=== PATIENT | male | born 1940 | race Caucasian/White ===

== ENCOUNTER → 2017-11-24 14:02 | Outpatient (CLI) | payer MEDICARE, OTHER, SELFPAY ==
[2017-11-24 16:06] LABS: ALB/GLOB Ratio 0.9 RATIO (0.9-2.4); AST(SGOT) 21 U/L (15-37); Alanine Aminotransfer ALT/SGPT 24 U/L (16-61); Albumin, Serum 3.7 g/dL (3.2-5.0); Alkaline Phosphatase 56 U/L (45-117); Anion Gap 8 (5-15); BUN 41 mg/dL (7-18); BUN/Creat Ratio 21.8 RATIO (10-20); Calcium,Total 8.6 mg/dL (8.5-10.1); Chloride 103 mmol/L (98-107); Creatinine, Serum 1.88 mg/dL (0.70-1.30); EST Glomerular Filtration Rate 37 mL/min (>60); Est Glom Filt Rate - Afr Amer 45 mL/min (>60); Globulin 4.3 g/dL (2.2-4.2); Glucose 88 mg/dL (74-106); Potassium 3.5 mmol/L (3.5-5.1); Sodium Level 138 mmol/L (136-145); T4 Free Direct 1.27 ng/dL (0.76-1.46); Thyroid Stim Hormone (TSH) 4.21 uIU/mL (0.358-3.74)
[2017-11-24 16:14] LABS: Absolute Lymphocyte Count 1.11 X10^3/ul (0.83-4.51); Absolute Neutrophil Count 7.4 X10^3/uL (2.0-7.7); Basophil# 0.03 X10^3/uL; Basophil% 0.3 % (0-1); Eosinophil# 0.08 X10^3/uL; Eosinophils% 0.9 % (0-5); Hematocrit 35.6 % (40-54); Hemoglobin 12.2 g/dl (13.0-16.5); Lymphocyte # 1.11 X10^3/ul (4.0); Lymphocyte % 11.9 % (19-41); Mean Corp Hgb Conc 34.3 g/gl (32-36); Mean Corpuscular Hgb 34.9 pg (27.0-32.0); Mean Corpuscular Volume 101.7 fL (80-94); Mean Platelet Vol. 10.6 fl (6.2-12.0); Monocyte# 0.71 X10^3/uL; Monocyte% 7.6 % (0-10); Neutrophil # 7.37 X10^3/uL (2.7-7.7); Neutrophil % 79.2 % (47-70); Platelet Count 274 K/mm3 (150-450); RBC Distribution Width CV 14.7 % (11.6-14.6); RBC Distribution Width SD 52.9 fl (35.1-43.9); White Blood Count 9.3 K/mm3 (4.4-11.0)
[2017-11-24 16:19] LABS: POSITIVE COUNT NO; POSITIVE DIFFERENTIAL NO; POSITIVE MORPHOLOGY NO
[2017-11-25 10:41] LABS: Vitamin B12 608 pg/mL (211-911); Vitamin D,25 Hydroxy 54.4 ng/mL (29.95-100.01)
[2017-11-29 15:31] LABS: Anti-Thyroglobulin AB < 1.0 IU/mL (0.0-0.9); Thyroglobulin, Serum Qt. 47.2 ng/mL (1.4-29.2); Thyroid Peroxidase AB 15 IU/mL (0-34)
== END ==
PROVIDERS: Family Provider Family Medicine; PCP Family Medicine; Visit Provider Family Medicine
DX: R53.83 Other fatigue (principal)
CPT/HCPCS: 36415; 80053; 82306; 82607; 84432; 84439; 84443; 85025; 86376; 86800

== ENCOUNTER → 2018-01-12 10:40 | Outpatient (CLI) | payer MEDICARE, OTHER, SELFPAY ==
[2018-01-12 11:22] LABS: International Normalized Ratio 1.6; Prothrombin Time (Protime)PT. 18.6 SECONDS (11.7-14.9)
[2018-01-12 11:43] LABS: AST(SGOT) 19 U/L (15-37); Alanine Aminotransfer ALT/SGPT 19 U/L (16-61); Albumin, Serum 3.7 g/dL (3.2-5.0); Alkaline Phosphatase 54 U/L (45-117); Bilirubin, Direct 0.23 mg/dL (0.00-0.30); Cholesterol 117 mg/dL (200); Globulin 4.2 g/dL (2.2-4.2); High Density Lipoprotein 52 mg/dL; Protein, Total 7.9 g/dL (6.4-8.2); Triglycerides 86 mg/dL; Very Low Density Lipoprotein 17 mg/dL (5-40)
== END ==
PROVIDERS: Family Provider Family Medicine; PCP Family Medicine; Visit Provider Internal Medicine Cardiovascular Disease
DX: E78.00 Pure hypercholesterolemia, unspecified (principal); I25.10 Atherosclerotic heart disease of native coronary artery without angina pectoris; I10 Essential (primary) hypertension
CPT/HCPCS: 36415; 80061; 80076; 85610

== ENCOUNTER → 2018-04-10 14:45 | Outpatient (CLI) | payer MEDICARE, OTHER, SELFPAY ==
[2018-04-10 17:41] LABS: International Normalized Ratio 1.7
== END ==
PROVIDERS: Family Provider Family Medicine; PCP Family Medicine; Visit Provider Family Medicine
DX: I48.91 Unspecified atrial fibrillation (principal)
CPT/HCPCS: 36415; 85610

== ENCOUNTER → 2018-04-18 13:44 | Outpatient (CLI) | payer MEDICARE, OTHER, SELFPAY ==
[2018-04-18 16:12] LABS: International Normalized Ratio 1.7; Prothrombin Time (Protime)PT. 19.8 SECONDS (11.7-14.9)
[2018-05-02 13:54] LABS: International Normalized Ratio 1.8
== END ==
PROVIDERS: Family Provider Family Medicine; PCP Family Medicine; Visit Provider Family Medicine
DX: I48.91 Unspecified atrial fibrillation (principal)
CPT/HCPCS: 36415; 85610

== ENCOUNTER → 2018-05-02 12:06 | Outpatient (CLI) | payer MEDICARE, OTHER, SELFPAY | PROVIDERS: Family Provider Family Medicine; PCP Family Medicine; Visit Provider Family Medicine | DX: I48.91 Unspecified atrial fibrillation (principal) ==

== ENCOUNTER 2018-05-31 11:13 | Observation (INO) | payer MEDICARE, OTHER, SELFPAY ==
[2018-05-31] VITALS (13 sets, daily range): BP systolic 122–154; BP diastolic 62–85; PULSE 54–76; RESP 17–21; TEMP 36.7–37.3; O2SAT 90–98; BMI 26.6; BMI 26.7; BMI 25.7
--- NOTE | 2018-05-31 11:30 | EKG12_ITS ---
Test Reason : CP Blood Pressure : / mmHG Vent. Rate : 066 BPM Atrial Rate : 066 BPM P-R Int : 204 ms QRS Dur : 096 ms QT Int : 430 ms P-R-T Axes : 068 016 004 degrees QTc Int : 450 ms Normal sinus rhythm Normal ECG Confirmed by ADAM ZHENG MD ([id number]), technical writer and editor LENA GALLEGO ([id number]) on 06/05/2018 3:18:57 PM Referred By: MANUELA Confirmed By:ADAM ZHENG MD
--- NOTE | 2018-05-31 11:30 | RAD_ITS ---
STUDY: X-RAY CHEST REASON FOR EXAM: Male, 77 years old. CHEST TIGHTNESS, DIZZY, FELT PALPITATIONS AND THREW UP TECHNIQUE: Single AP portable view of the chest. COMPARISON: None. FINDINGS: Subsegmental atelectases in the right and left lung bases. There is no demonstrated pleural abnormality. Normal size heart. Normal mediastinum and nasrin. Normal visualized pulmonary arteries. There is atherosclerotic calcification of the aortic arch with tortuosity. Normal visualized thoracic spine. There is degenerative osteoarthritis of the bilateral shoulders. There is no demonstrated abnormality of the visualized soft tissue structures of the upper abdomen. RAD/Chest 1 View (Portable) IMPRESSION: Degenerative changes, as described above. No demonstrated acute cardiopulmonary process. Electronically Signed: Angelina Reeves MD at 11:53 EDT Tel , Service support ,
--- NOTE | 2018-05-31 11:31 | CT_ITS ---
STUDY: CT BRAIN WITHOUT CONTRAST REASON FOR EXAM: Male, 77 years old. THAKUR,DIZZY,VOMITING, HX VERTIGO RADIATION DOSAGE (If Supplied By Facility): CTDIvol = ( 44.99 ) mGy, DLP = ( 796.11 ) mGycm TECHNIQUE: Transaxial CT imaging of the brain was performed without administration of intravenous contrast material. Individualized dose optimization techniques were used for this CT. COMPARISON: None. FINDINGS: Normal soft tissue structures. Normal calvarium. There is mild cerebral atrophy with widening of the extra-axial spaces and ventricular dilatation. There are areas of decreased attenuation within the white matter tracts of the supratentorial brain, consistent with microvascular disease changes. Normal basal ganglia and thalami. Normal brainstem. Normal cerebellum. There is no intracranial hemorrhage. There are no findings of an acute ischemic infarction. Normal visualized paranasal sinuses. CT/Brain/Head without Contrast IMPRESSION: Chronic involutional changes of the brain. Electronically Signed: Angelina Reeves MD at 12:09 EDT Tel , Service support ,
[2018-05-31] MEDS: Aspirin 81 MG TAB.CHEW 324 MG PO (11:39)
[2018-05-31] MEDS: 0.9% Normal Saline 1,000 ML 150 ML IV ×3 (11:39→21:56)
[2018-05-31] MEDS: Ondansetron 4 MG/2 ML Vial IV (11:39)
[2018-05-31 11:40] LABS: Absolute Lymphocyte Count 0.92 X10^3/ul (0.83-4.51); Absolute Neutrophil Count 7.7 X10^3/uL (2.0-7.7); Basophil# 0.04 X10^3/uL; Basophil% 0.4 % (0-1); Eosinophil# 0.05 X10^3/uL; Eosinophils% 0.5 % (0-5); Hematocrit 34.6 % (40-54); Hemoglobin 11.9 g/dl (13.0-16.5); Lymphocyte # 0.92 X10^3/ul (4.0); Lymphocyte % 9.6 % (19-41); Mean Corp Hgb Conc 34.4 g/gl (32-36); Mean Corpuscular Hgb 35.5 pg (27.0-32.0); Mean Corpuscular Volume 103.3 fL (80-94); Mean Platelet Vol. 10.3 fl (6.2-12.0); Monocyte# 0.78 X10^3/uL; Monocyte% 8.2 % (0-10); Neutrophil # 7.73 X10^3/uL (2.7-7.7); POSITIVE COUNT NO; POSITIVE DIFFERENTIAL NO; POSITIVE MORPHOLOGY NO; Platelet Count 263 K/mm3 (150-450); RBC Distribution Width CV 14.9 % (11.6-14.6); RBC Distribution Width SD 55.6 fl (35.1-43.9); Red Blood Count 3.35 M/mm3 (4.6-6.2); White Blood Count 9.6 K/mm3 (4.4-11.0)
[2018-05-31 11:43] LABS: International Normalized Ratio 2.3; Prothrombin Time (Protime)PT. 25.5 SECONDS (11.7-14.9)
[2018-05-31 11:53] LABS: Anion Gap 8 (5-15); BUN 25 mg/dL (7-18); BUN/Creat Ratio 16.4 RATIO (10-20); Calcium,Total 9.1 mg/dL (8.5-10.1); Chloride 104 mmol/L (98-107); Creatinine, Serum 1.52 mg/dL (0.70-1.30); EST Glomerular Filtration Rate 48 mL/min (>60); Est Glom Filt Rate - Afr Amer 58 mL/min (>60); Estimated Creatinine Clearance 38.65 ml/min; Glucose 100 mg/dL (74-106); Potassium 2.8 mmol/L (3.5-5.1); Sodium Level 141 mmol/L (136-145)
--- NOTE | 2018-05-31 12:34 | ED.VISSUMM ---
- ER Visit Summary Date of Service: 05/31/18 Chief Complaint: [Chest pain and palpitations.] History of Present Illness: The patient is a 77 M [presents to the emergency department with complaint of not feeling well since yesterday. This morning the patient had some chest tightness and took a nitro which seemed to resolve it. Patient has been complaining of a lot of fatigue especially with activity and exertion. Patient today has been feeling very lightheaded and feels off balance when walking. Patient also has a headache that started yesterday. Patient does have a history of paroxysmal atrial fibrillation, hypertension, high cholesterol. Patient does have a history of cardiac stent that was placed in 1998.] Physical Examination: [HEENT-PERRLA, EOMI. Cranial nerves II through XII grossly intact. TMs clear. Mucous membranes moist. No adenopathy. Cardiovascular-regular rate and 2 out of 6 systolic ejection murmur noted. Lungs-clear to auscultation, chest wall stable without crepitus or subcu emphysema Abdomen-normoactive bowel sounds, soft, nontender, no rebound or rigidity, no peritoneal signs. Neuro xoba-yuuvgl-empd and heel purdy testing within normal limits, negative Romberg, negative pronator drift, fundi benign. Hallpike maneuver performed was negative for nystagmus. Extremities-intact ?4, normal range of motion, normal pulses, atraumatic] Test Results: [EKG obtained on arrival shows sinus rhythm with a ventricular rate of 66 bpm with no acute ST segment changes. CBC with differential showed a white count of 9.6, hemoglobin 11.9, hematocrit 35, platelet 263. Chemistries show sodium 141, potassium 2.8, chloride 104, CO2 29, BUN 25, creatinine 1.52. INR was 2.3 and troponin was less than 0.015. Chest x-ray showed nothing acute. CT scan of the brain without contrast showed chronic involutional changes otherwise nothing acute.] Emergency Department Course and Treatment: [Patient was pain-free on arrival to the emergency department. He had an IV established with normal saline.] She was given 40 mCi once of potassium chloride p.o. Treatment Plan: [Admit for further workup and evaluation] Disposition: [Admit] Impression: [Chest pain Palpitations Hypokalemia Dizziness-etiology uncertain] This note was generated with [employer] software. It may contain incorrect words, spelling, and punctuation that were not noted in review of the chart prior to signing ED Disposition - Plan for ED Patient: Chief Complaint: Palpitations Referrals: César Chinchilla MD [Primary Care Provider] -
--- NOTE | 2018-05-31 12:40 | ED.DCSUM_ITS ---
- ER Visit Summary Date of Service: 05/31/18 Chief Complaint: [Chest pain and palpitations.] History of Present Illness: The patient is a 77 M [presents to the emergency department with complaint of not feeling well since yesterday. This morning the patient had some chest tightness and took a nitro which seemed to resolve it. Patient has been complaining of a lot of fatigue especially with activity and exertion. Patient today has been feeling very lightheaded and feels off balance when walking. Patient also has a headache that started yesterday. Patient does have a history of paroxysmal atrial fibrillation, hypertension, high cholesterol. Patient does have a history of cardiac stent that was placed in 1998.] Physical Examination: [HEENT-PERRLA, EOMI. Cranial nerves II through XII grossly intact. TMs clear. Mucous membranes moist. No adenopathy. Cardiovascular-regular rate and 2 out of 6 systolic ejection murmur noted. Lungs-clear to auscultation, chest wall stable without crepitus or subcu emphysema Abdomen-normoactive bowel sounds, soft, nontender, no rebound or rigidity, no peritoneal signs. Neuro rwvl-ewdddp-ymbl and heel purdy testing within normal limits, negative Romberg, negative pronator drift, fundi benign. Hallpike maneuver performed was negative for nystagmus. Extremities-intact ?4, normal range of motion, normal pulses, atraumatic] Test Results: [EKG obtained on arrival shows sinus rhythm with a ventricular rate of 66 bpm with no acute ST segment changes. CBC with differential showed a white count of 9.6, hemoglobin 11.9, hematocrit 35, platelet 263. Chemistries show sodium 141, potassium 2.8, chloride 104, CO2 29, BUN 25, creatinine 1.52. INR was 2.3 and troponin was less than 0.015. Chest x-ray showed nothing acute. CT scan of the brain without contrast showed chronic involutional changes otherwise nothing acute.] Emergency Department Course and Treatment: [Patient was pain-free on arrival to the emergency department. He had an IV established with normal saline.] She was given 40 mCi once of potassium chloride p.o. Treatment Plan: [Admit for further workup and evaluation] Disposition: [Admit] Impression: [Chest pain Palpitations Hypokalemia Dizziness-etiology uncertain] This note was generated with [employer] software. It may contain incorrect words, spelling, and punctuation that were not noted in review of the chart prior to signing ED Disposition - Plan for ED Patient: Chief Complaint: Palpitations Referrals: César Chinchilla MD [Primary Care Provider] -
--- NOTE | 2018-05-31 14:06 | PCM.HP.STD ---
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 transplanted heart: [place] heart Qualified Code(s): I25.10 - Atherosclerotic heart disease of [place] coronary artery without angina pectoris (8) HLD (hyperlipidemia) Status: Chronic Qualifiers: Hyperlipidemia type: pure hypercholesterolemia Qualified Code(s): E78.00 - Pure hypercholesterolemia, unspecified; E78.0 - Pure hypercholesterolemia (9) CAD (coronary artery disease) Status: Chronic (10) Generalized weakness Status: Chronic (11) C. difficile colitis Status: Resolved (12) Chest tightness Status: Acute History of Present Illness Date of Admission: 05/31/18 Chief Complaint: Near syncope, chest tightness/palpitation The patient is a 77 year old M with PAFIB s/p cardioverted on coumadin came to ED WITH near syncope and dizziness and chest tightness. Pt has chronic on and off palpitation but this time he felt chest tightness without precipitating or relieving or radiation. No SOB or N/V. He has dizziness since yesterday but no syncope or fall. He was admitted here in 02/2017 for similiar chest tightness and palitation and stress test was negative. H/o CAD S/P stents, last LA in 1998. In ED, chest tightness relieved with nitro S/L. EKG NSR @ 66 b/m with no ST-T Changes. On monitor and storage bin tender, sinus rhythm with PVCs and missed heart beat. K 2.8. INR 2.3 [] Past Medical History Past Medical History (Chronic Problems): Chronic Problems (Last Reviewed 01/12/18 @ 10:23 by Tremaine Molina MD) HTN (hypertension) (Chronic) History of coronary artery stent placement (Chronic) PTCA and stenting of the proximal LAD 08/04/2000 Paroxysmal atrial fibrillation (Chronic) Old myocardial infarction (Chronic) Atherosclerotic heart disease of [place] coronary artery without angina pectoris (Chronic) HLD (hyperlipidemia) (Chronic) CAD (coronary artery disease) (Chronic) Generalized weakness (Chronic) Medical History: Medical History (Last Reviewed 01/12/18 @ 10:23 by Tremaine Molina MD) Hypokalemia (Resolved) E87.6 HTN (hypertension) (Chronic) I10 Paroxysmal atrial fibrillation (Chronic) I48.0 Old myocardial infarction (Chronic) I25.2 Atherosclerotic heart disease of [place] coronary artery without angina pectoris (Chronic) I25.10 HLD (hyperlipidemia) (Chronic) E78.5 CAD (coronary artery disease) (Chronic) I25.10 Back pain M54.9 Hay fever J30.1 Knee pain M25.569 Neck pain M54.2 Arthritis M19.90 Atrial fibrillation with RVR I48.91 BPH (benign prostatic hyperplasia) N40.0 Heart disease I51.9 History of hyperthyroidism Z86.39 Allergies prednisone Allergy (Verified 01/12/18 10:07) Rash diclofenac Adverse Reaction (Verified 01/12/18 10:07) rash Home Medications: Ambulatory Orders Medication Instructions Recorded fluticasone 50 mcg/actuation nasal 1 spray INTRANASAL QDAY #9.9 g 09/11/17 spray,suspension aspirin 81 mg tablet,delayed 81 mg PO QDAY 01/09/18 release cholecalciferol (vitamin D3) 2,000 2,000 unit PO QDAY 01/09/18 unit tablet hydrocodone 5 mg-acetaminophen 325 1 tab PO Q6H PRN 01/09/18 mg tablet tramadol 50 mg tablet 50 mg PO TID PRN tab 01/09/18 calcium carbonate-vitamin D3 600 1 cap PO QDAY cap 01/12/18 mg (1,500 mg)-500 unit capsule coenzyme Q10 100 mg capsule 100 mg PO QDAY 01/12/18 levocetirizine 5 mg tablet 5 mg PO QHS 01/12/18 pravastatin 40 mg tablet 40 mg PO DAILY #90 tab 01/12/18 warfarin 4 mg tablet 4 mg PO SUTUWETHSA #60 tab 01/12/18 nitroglycerin 0.4 mg sublingual 0.4 mg SUBLINGUAL Q5-15M PRN #25 03/03/18 tablet tab Denosumab [Prolia] 60 mg SQ Q6M 05/31/18 Glucosam/Mahesh-Msm1/C/Torey/Bosw 1 each PO DAILY 05/31/18 [Osteo Bi-Flex Caplet] Lidocaine 5% 1 patch TOPICAL DAILY 05/31/18 Magnesium Oxide [Mag-Ox 400] 1 tab PO QHS 05/31/18 Potassium Bicarbonate/Cit AC 50 meq PO BID 05/31/18 Tizanidine HCl [Zanaflex] 2 - 4 mg PO QHS PRN 05/31/18 Diltiazem HCl [Cardizem Cd] 120 mg PO QDAY #0 06/01/18 Hydrochlorothiazide [Hctz] 12.5 mg PO QDAY #0 tab 06/01/18 Metoprolol Tartrate 50 mg PO BID #0 06/01/18 Tamsulosin HCl [Flomax] 0.4 mg PO DAILY #0 cap 06/01/18 Warfarin [Coumadin] 5 mg PO MOFR #60 tab 06/01/18 Surgical History: Surgical History (Last Reviewed 01/12/18 @ 10:23 by Tremaine Molina MD) History of coronary artery stent placement (Chronic) Z95.5 PTCA and stenting of the proximal LAD 08/04/2000 History of Zenaida fundoplication Z98.890 History of back surgery Z98.890 History of hernia repair Z98.890, Z87.19 Surgical History: angioplasty, - - cardiversion, 3 hernia operations, back surgey 3 times hemorrhoid surgery. Smoking Status: Never smoker - *Family History Paternal Family History: Family History (Last Reviewed 01/12/18 @ 10:23 by Tremaine Molina MD) Father Cancer Mother Hypertension Sister Hypertension History Items: - - prostate cancer Maternal Family History: Family History (Last Reviewed 01/12/18 @ 10:23 by Tremaine Molina MD) Father Cancer Mother Hypertension Sister Hypertension History Items: Heart Disease, - - Study of cardiac disease in his maternal side Review of Systems Constitutional: Denies: Chills, Fever, Weight Change HEENT: Reports: Head Aches, Sinus Congestion. Denies: Sinus Drainage Cardiovascular: Reports: Chest Tightness, Light Headedness, Palpitations. Denies: Chest Pain Respiratory: Denies: Cough, Shortness of breath at rest, Sputum production Gastrointestinal: Denies: Abdominal Pain, Nausea, Vomiting Genitourinary: Denies: Dysuria, Frequency, Hematuria Musculoskeletal: Reports: Joint Pain. Denies: Joint Tenderness Skin: Denies: Rash, Wounds Neurological: Denies: Numbness, Tingling, Focal weakness Psychiatric: Denies: Anxiety, Depression, Homicidal Ideations, Suicidal Ideations Hematologic/ Lymphatic: Denies: Easy Bruising, Easy Bleeding VTE Information - Inpt Only VTE Present on Admission: No VTE Mechan Device Prophylaxis: None VTE Pharm Prophylaxis ordered?: No Reason prophylaxis not ordered:: Procedure Not Indicated - On Coumadin Patient Problems: Active and Suspected Problems (Last Reviewed 01/12/18 @ 10:23 by Tremaine Molina MD) Near syncope (Acute) - Physical Exam General: Alert, Oriented x3, Cooperative HEENT: Atraumatic, PERRLA, EOMI, Normocephalic Oral: Dry Mucosa Neck: Supple, No JVD, Negative Carotid Bruits Lungs: Clear to auscultation, Normal air movement, No rhonchi, No wheeze Cardiovascular: Normal S1, Normal S2, No murmurs, Irregular Rate - SINUS rhythm with PVCs and missed HB Abdomen: Bowel Sounds Present, Soft, Non Tender, Non-Distended Extremities: No edema, Capillary Refill Less than 3 Seconds Skin: No rashes, No breakdown Musculoskeletal: No Tenderness to Palpation of Joints or Extremities, Arthritic Changes - LEFT 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 Neurological: Cranial nerves II-XII grossly intact Psych/Mental Status: Normal Affect, Appropriate Vital Signs Temp Pulse Resp BP Pulse Ox 98.1 F 64 17 122/71 H 93 05/31/18 13:24 05/31/18 13:24 05/31/18 13:24 05/31/18 13:24 05/31/18 13:24 Oxygen Delivery Method Room Air Weight: 164 lb 3.91 oz Body Mass Index (BMI) 25.7 Laboratory Tests Past 24 Hrs 05/31/18 05/31/18 05/31/18 11:20 11:20 11:20 WBC 9.6 RBC 3.35 L Hgb 11.9 L Hct 34.6 L MCV 103.3 H MCH 35.5 H MCHC 34.4 RDW 14.9 H RDW Differential 55.6 H Plt Count 263 MPV 10.3 Immature Gran % (Auto) 0.300 Neut % (Auto) 81.0 H Lymph % (Auto) 9.6 L Metcalfe % (Auto) 8.2 Eos % (Auto) 0.5 Baso % (Auto) 0.4 Absolute Neuts (auto) 7.7 Absolute Lymphs (auto) 0.92 Total Counted Not Reportable PT 25.5 H INR 2.3 Sodium 141 Potassium 2.8 L Chloride 104 Carbon Dioxide 29.0 Anion Gap 8 BUN 25 H Creatinine 1.52 H Estim Creat Clear Calc 38.65 Est GFR (MDRD) Af Amer 58 L Est GFR (MDRD) Non-Af 48 L BUN/Creatinine Ratio 16.4 Glucose 100 Calcium 9.1 Troponin I < 0.015 Assessment/Plan All Active Problems (Last Reviewed 01/12/18 @ 10:23 by Tremaine Molina MD) Near syncope (Acute) Hypokalemia (Resolved) C. difficile colitis (Resolved) Chest tightness (Acute) The patient is a 77 year old M with PAFIB s/p cardioverted on coumadin came to ED WITH near syncope and dizziness and chest tightness. Pt has chronic on and off palpitation but this time he felt chest tightness without precipitating or relieving or radiation. No SOB or N/V. He has dizziness since yesterday but no syncope or fall. He was admitted here in 02/2017 for similiar chest tightness and palitation and stress test was negative. H/o CAD S/P stents, last LA in 1998. In ED, chest tightness relieved with nitro S/L. EKG NSR @ 66 b/m with no ST-T Changes. On monitor and storage bin tender, sinus rhythm with PVCs and missed heart beat. K 2.8. INR 2.3. 1. Chest tightness/palpitation, atypical R/O ACS: Patient is being admitted to PCU. Serial cardiac enzymes. Heart rate is controlled. If troponins are negative, Lexiscan nuclear stress test tomorrow a.m. 2. Near syncope and vertigo or probably related to polypharmacy, : No nystagamus on exam. Kameron Hallpike manoeuvre negative. Patient is on tramadol, [place], tizanidine and Flomax twice daily that might be in part responsible for dizziness/lightheadedness. Medications were held. 3. Paroxysmal A. fib on Coumadin: INR therapeutic. Continue home dose of Coumadin. 4. Coronary artery disease status post stents, hypertension and dyslipidemia: Home medications continued. Blood pressure is stable and no hypotension. Patient had nuclear stress test in February 2017 and was negative. 5. BPH on Flomax. Home medication reconciliation done. DVT prophylaxis: On Coumadin. Laboratory Results 05/31/18 11:20: WBC 9.6, RBC 3.35 L, Hgb 11.9 L, Hct 34.6 L, MCV 103.3 H, MCH 35.5 H, MCHC 34.4, RDW 14.9 H, RDW Differential 55.6 H, Plt Count 263, MPV 10.3, Immature Gran % (Auto) 0.300, Neut % (Auto) 81.0 H, Lymph % (Auto) 9.6 L, Metcalfe % (Auto) 8.2, Eos % (Auto) 0.5, Baso % (Auto) 0.4, Absolute Neuts (auto) 7.7, Absolute Lymphs (auto) 0.92, Total Counted Not Reportable 05/31/18 11:20: PT 25.5 H, INR 2.3 05/31/18 11:20: Sodium 141, Potassium 2.8 L, Chloride 104, Carbon Dioxide 29.0, Anion Gap 8, BUN 25 H, Creatinine 1.52 H, Estim Creat Clear Calc 38.65, Est GFR (MDRD) Af Amer 58 L, Est GFR (MDRD) Non-Af 48 L, BUN/Creatinine Ratio 16.4, Glucose 100, Calcium 9.1, Troponin I < 0.015 05/31/18 14:33: Troponin I 0.019 Clinical Impression(s) from Imaging Studies Chest X-Ray 05/31/18 11:30 IMPRESSION: Degenerative changes, as described above. No demonstrated acute cardiopulmonary process. Brain CT 05/31/18 11:31 IMPRESSION: Chronic involutional changes of the brain. Code Visit Inpatient E&M: 99865 Init Hosp L3 OBSV E&M: 45785 Initial observation care L3
--- NOTE | 2018-05-31 14:07 | EKG12_ITS ---
Test Reason : CP ADMISION Blood Pressure : / mmHG Vent. Rate : 058 BPM Atrial Rate : 058 BPM P-R Int : 204 ms QRS Dur : 100 ms QT Int : 450 ms P-R-T Axes : 068 -02 -11 degrees QTc Int : 441 ms Sinus bradycardia with marked sinus arrhythmia Otherwise normal ECG When compared with ECG of 24-MAR-2017 07:07, Previous ECG has undetermined rhythm, needs review QT has shortened Confirmed by MARCE KASPER, ADAM ([id number]), restaurant expeditor LENA GALLEGO ([id number]) on 06/05/2018 3:58:50 PM Referred By: MANJIT Confirmed By:ADAM ZHENG MD
[2018-05-31] MEDS: HYDROcodone Bitartrate/Apap 5/325 Tablet PO (16:13)
[2018-05-31] MEDS: Aspirin E.C. 81 MG Tablet PO (16:14)
[2018-05-31] MEDS: Tamsulosin HCl 0.4 MG Capsule PO (16:14)
[2018-05-31] MEDS: dilTIAZem CD 120 MG Capsule PO (16:15)
[2018-05-31] MEDS: Fluticasone 0.05% 1 SPRAY NASAL.SRY NASAL (21:55)
[2018-05-31] MEDS: Metoprolol Tartrate 50 MG Tablet PO (21:56)
[2018-05-31] MEDS: Magnesium Oxide 400 MG Tablet PO (21:56)
[2018-05-31] MEDS: Pravastatin 40 MG Tablet PO (21:56)
[2018-06-01] MEDS: Acetaminophen 325 MG Tablet 650 MG PO ×2 (00:45→08:14)
[2018-06-01 02:57] VITALS: BP 129/72; PULSE 65; RESP 18; TEMP 37.1; O2SAT 95
[2018-06-01 03:00] VITALS: PULSE 65
[2018-06-01 03:59] LABS: Absolute Lymphocyte Count 0.83 X10^3/ul (0.83-4.51); Absolute Neutrophil Count 8.1 X10^3/uL (2.0-7.7); Basophil# 0.02 X10^3/uL; Basophil% 0.2 % (0-1); Eosinophil# 0.06 X10^3/uL; Eosinophils% 0.6 % (0-5); Hematocrit 29.6 % (40-54); Hemoglobin 10.3 g/dl (13.0-16.5); Lymphocyte # 0.83 X10^3/ul (4.0); Lymphocyte % 8.2 % (19-41); Mean Corp Hgb Conc 34.8 g/gl (32-36); Mean Corpuscular Hgb 36.4 pg (27.0-32.0); Mean Corpuscular Volume 104.6 fL (80-94); Mean Platelet Vol. 9.8 fl (6.2-12.0); Monocyte# 1.13 X10^3/uL; Monocyte% 11.2 % (0-10); Neutrophil # 8.05 X10^3/uL (2.7-7.7); Neutrophil % 79.7 % (47-70); Platelet Count 224 K/mm3 (150-450); RBC Distribution Width CV 14.9 % (11.6-14.6); RBC Distribution Width SD 56.1 fl (35.1-43.9); Red Blood Count 2.83 M/mm3 (4.6-6.2); White Blood Count 10.1 K/mm3 (4.4-11.0)
--- NOTE | 2018-06-01 04:00 | EKG12_ITS ---
Test Reason : AM EKG Blood Pressure : / mmHG Vent. Rate : 072 BPM Atrial Rate : 072 BPM P-R Int : 212 ms QRS Dur : 100 ms QT Int : 416 ms P-R-T Axes : 074 009 008 degrees QTc Int : 455 ms Sinus rhythm with 1st degree A-V block Otherwise normal ECG When compared with ECG of 31-MAY-2018 14:28, MANUAL COMPARISON REQUIRED, DATA IS UNCONFIRMED Confirmed by MARCE KASPER, ADAM ([id number]), film editor supervisor LENA GALLEGO ([id number]) on 06/05/2018 3:57:46 PM Referred By: MANJIT Confirmed By:ADAM ZHENG MD
[2018-06-01 04:14] LABS: Prothrombin Time (Protime)PT. 31.6 SECONDS (11.7-14.9)
[2018-06-01 04:15] LABS: Partial Thromboplast Time 60.4 Seconds (24.1-36.2)
[2018-06-01 04:45] LABS: POSITIVE COUNT NO; POSITIVE DIFFERENTIAL NO; POSITIVE MORPHOLOGY NO
[2018-06-01] MEDS: 0.9% Normal Saline 1,000 ML 150 ML IV (05:04)
[2018-06-01] MEDS: Aspirin E.C. 81 MG Tablet PO (05:05)
[2018-06-01 05:14] LABS: Anion Gap 8 (5-15); BUN 25 mg/dL (7-18); BUN/Creat Ratio 20.3 RATIO (10-20); Calcium,Total 7.7 mg/dL (8.5-10.1); Chloride 111 mmol/L (98-107); Cholesterol 82 mg/dL (200); Creatinine, Serum 1.23 mg/dL (0.70-1.30); EST Glomerular Filtration Rate 61 mL/min (>60); Est Glom Filt Rate - Afr Amer 73 mL/min (>60); Estimated Creatinine Clearance 47.77 ml/min; Glucose 87 mg/dL (74-106); High Density Lipoprotein 38 mg/dL; Potassium 3.5 mmol/L (3.5-5.1); Sodium Level 145 mmol/L (136-145); Triglycerides 76 mg/dL; Very Low Density Lipoprotein 15 mg/dL (5-40)
[2018-06-01 06:57] VITALS: PULSE 68
[2018-06-01] MEDS: Ondansetron 4 MG/2 ML Vial IV (08:13)
[2018-06-01 08:57] VITALS: BP 143/67; PULSE 79; RESP 16; TEMP 36.7; O2SAT 93
[2018-06-01] MEDS: traMADol 50 MG Tablet PO (10:59)
[2018-06-01] MEDS: Tamsulosin HCl 0.4 MG Capsule PO (10:59)
[2018-06-01] MEDS: dilTIAZem CD 120 MG Capsule PO (10:59)
[2018-06-01 11:00] VITALS: PULSE 84
[2018-06-01] MEDS: Fluticasone 0.05% 1 SPRAY NASAL.SRY NASAL (11:00)
[2018-06-01] MEDS: Metoprolol Tartrate 50 MG Tablet PO (11:00)
[2018-06-01] MEDS: Lidocaine 5% Patch 1 PATCH TOPICAL (11:00)
[2018-06-01] MEDS: 0.9% NaCl Peripheral Flush Adult/Peds IV (11:05)
[2018-06-01 11:07] VITALS: PULSE 91
--- NOTE | 2018-06-01 11:28 | DCINST_ITS ---
- Discharge Diagnoses Current Active Problems: Current Active and Chronic Problems (Last Reviewed 01/12/18 @ 10:23 by Tremaine Molina MD) Near syncope (Acute) You will use the following diet at home:: Cardiac Discharge Activity: May not drive while taking narcotic pain medications. Call your doctor if you observe: Fever of 101 or Higher, Change in Color, Chest pain Allergies/Adverse Reactions: Allergies prednisone Allergy (Verified 01/12/18 10:07) Rash diclofenac Adverse Reaction (Verified 01/12/18 10:07) rash Medications to take at Discharge fluticasone 50 mcg/actuation nasal spray,suspension 1 spray INTRANASAL QDAY #9.9 g 09/11/17 aspirin 81 mg tablet,delayed release 81 mg PO QDAY 01/09/18 cholecalciferol (vitamin D3) 2,000 unit tablet 2,000 unit PO QDAY 01/09/18 hydrocodone 5 mg-acetaminophen 325 mg tablet 1 tab PO Q6H PRN 01/09/18 tramadol 50 mg tablet 50 mg PO TID PRN tab 01/09/18 calcium carbonate-vitamin D3 600 mg (1,500 mg)-500 unit capsule 1 cap PO QDAY cap 01/12/18 coenzyme Q10 100 mg capsule 100 mg PO QDAY 01/12/18 levocetirizine 5 mg tablet 5 mg PO QHS 01/12/18 pravastatin 40 mg tablet 40 mg PO DAILY #90 tab 01/12/18 warfarin 4 mg tablet 4 mg PO SUTUWETHSA #60 tab 01/12/18 nitroglycerin 0.4 mg sublingual tablet 0.4 mg SUBLINGUAL Q5-15M PRN #25 tab 03/03/18 Denosumab [Prolia] 60 mg SQ Q6M 05/31/18 Glucosam/Mahesh-Msm1/C/Torey/Bosw [Osteo Bi-Flex Caplet] 1 each PO DAILY 05/31/18 Lidocaine 5% 1 patch TOPICAL DAILY 05/31/18 Magnesium Oxide [Mag-Ox 400] 1 tab PO QHS 05/31/18 Potassium Bicarbonate/Cit AC 50 meq PO BID 05/31/18 Tizanidine HCl [Zanaflex] 2 - 4 mg PO QHS PRN 05/31/18 Diltiazem HCl [Cardizem Cd] 120 mg PO QDAY #0 06/01/18 Hydrochlorothiazide [Hctz] 12.5 mg PO QDAY #0 tab 06/01/18 Metoprolol Tartrate 50 mg PO BID #0 06/01/18 Tamsulosin HCl [Flomax] 0.4 mg PO DAILY #0 cap 06/01/18 Warfarin [Coumadin] 5 mg PO MOFR #60 tab 06/01/18 Orders to be completed after discharge: Prothrombin Time w/INR Time Frame: 06/02/18, Location: Laboratory Primary Care Physician: César Chinchilla MD [Primary Care Provider] - Please follow up with your Primary Care Physician in: IN 1-2 WEEKS Test Results: Test results from this visit will be discussed in further detail at your follow- up appointment, if applicable. Please Follow Up With: Primo Rosado MD When: ENT in 2-3 weeks for DIZZINESS, Vertigo
--- NOTE | 2018-06-01 12:11 | PHA.DC.MR ---
Pharmacy Service has performed discharge medication reconciliation for this patient upon discharge. No new medications were given upon discharge, reviewed medications were from previous home medication list. The patient's discharge medication list was reviewed for discrepancies and discrepancies were resolved.
--- NOTE | 2018-06-01 12:42 | STRESSREP_ITS ---
Stress Test Report Date: 06/01/2018 Procedure: Pharmacologic stress nuclear imaging study Indications: Chest pain; CAD; PCI Consent: Per the patient Procedure: The patient underwent pharmacologic (Regadenoson) evaluation with a peak heart rate of 97 beats per minute (67 predicted maximal heart rate) and a peak blood pressure of 142/80 mmHg. The baseline ECG demonstrated normal sinus rhythm. The peak pharmacologic ECG demonstrated no obvious ECG changes. There was a rare PVC during infusion and recovery. There was no complaint of chest discomfort during pharmacologic infusion or recovery. The examination was discontinued secondary to completion of protocol. Impression: 1. Pharmacologic (Regadenoson) evaluation 2. Peak pharmacologic ECG with no obvious ECG changes. 3. There were no cardiac dysrhythmias pretest, during pharmacologic infusion, or recovery. 4. Nuclear images pending Myocardial perfusion imaging study: Technique: The patient was injected with 11.7 millicuries of technetium 99m Cardiolite and subsequently rest SPECT Cardiolite nuclear imaging was obtained in the horizontal long, vertical long, and short axis views. The patient underwent pharmacologic (Regadenoson) evaluation with a peak heart rate of 97 beats per minute (67 % percent predicted maximal heart rate) and a peak blood pressure of 142/80 mmHg. The patient was injected with 33.4 millicuries of technetium 99m Cardiolite and subsequently stress SPECT Cardiolite nuclear imaging was obtained in the horizontal long, vertical long, and short axis views. A gated Cardiolite study at peak stress was obtained. Interpretation: Rest and stress SPECT Cardiolite nuclear imaging status post realignment, normalization, and attenuation correction demonstrate no active uniform tracer uptake and myocardial perfusion appearing within normal limits. There is end systolic thickening and brightening. The gated Cardiolite study demonstrates myocardial thickening and inward wall motion. The reported LVEF is 60 %. Impression: 1. Rest and stress SPECT Cardiolite nuclear imaging demonstrate relative uniform tracer uptake and myocardial perfusion appearing within normal limits. 2. The gated Cardiolite study reports an LVEF of 60 %. This note was generated with [employer] software. It may contain incorrect words, spelling, and punctuation that were not noted in checking the note before signing.
--- NOTE | 2018-06-01 13:07 | PCM.DC.SUM ---
Discharge Date and Diagnosis - Problem List Patient Problems: Active and Suspected Problems (Last Reviewed 01/12/18 @ 10:23 by Tremaine Molina MD) Near syncope (Acute) Date of Admission: 05/31/18 Date of Discharge: 06/01/18 - Primary Discharge Diagnosis Active and Suspected Problems (Last Reviewed 01/12/18 @ 10:23 by Tremaine Molina MD) Near syncope (Acute) Chest tightness/palpitation, acute coronary syndrome ruled out: Lexiscan nuclear stress test was negative for stress-induced ischemia. 2. Near syncope and vertigo or probably related to polypharmacy, resolved. - Secondary Discharge Diagnosis Chronic Problems (Last Reviewed 01/12/18 @ 10:23 by Tremaine Molina MD) HTN (hypertension) (Chronic) History of coronary artery stent placement (Chronic) PTCA and stenting of the proximal LAD 08/04/2000 Paroxysmal atrial fibrillation (Chronic) Old myocardial infarction (Chronic) Atherosclerotic heart disease of [place] coronary artery without angina pectoris (Chronic) HLD (hyperlipidemia) (Chronic) CAD (coronary artery disease) (Chronic) Generalized weakness (Chronic) Hospital Course and Treatment Imaging Results: 06/01/18 05:55 Nuclear Stress Test - Chemical [NM] AM (NON MEDS) Operations: None Summary of Care Provided: [] The patient is a 77 year old M with PAFIB s/p cardioverted on coumadin came to ED WITH near syncope and dizziness and chest tightness. Pt has chronic on and off palpitation but this time he felt chest tightness without precipitating or relieving or radiation. No SOB or N/V. He has dizziness since yesterday but no syncope or fall. He was admitted here in 02/2017 for similiar chest tightness and palitation and stress test was negative. H/o CAD S/P stents, last [place] in 1998. In ED, chest tightness relieved with nitro S/L. EKG NSR @ 66 b/m with no ST-T Changes. On cardiac exercise physiologist, sinus rhythm with PVCs and missed heart beat. K 2.8. INR 2.3. Patient was seen and examined today. General: Alert, Oriented x3, Cooperative HEENT: Atraumatic, PERRLA, EOMI, Normocephalic Oral: Dry Mucosa Neck: Supple, No JVD, Negative Carotid Bruits Lungs: Clear to auscultation, Normal air movement, No rhonchi, No wheeze Cardiovascular: Normal S1, Normal S2, No murmurs, sinus rhythm with sinus arrhythmia on monitor. 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 Chest tightness/palpitation, acute coronary syndrome ruled out: On cardiac exercise physiologist, patient did not had tachycardia and was sinus rhythm with sinus arrhythmia. Serial troponin enzymes are negative. Lexiscan nuclear stress test was negative for stress-induced ischemia. 2. Near syncope and vertigo or probably related to polypharmacy, resolved. No nystagamus on exam. Kameron Hallpike manoeuvre negative patient was advised to follow with PCP in 1-2 weeks to adjust her medications particularly tizanidine, tramadol and [place]. Patient was advised to take it only if necessary. Patient is advised to space out antihypertensive medications HCTZ, and Cardizem CD. 3. Paroxysmal A. fib on Coumadin: Heart rate controlled on metoprolol and Cardizem CD. INR supratherapeutic, 3.0 today. Coumadin was held. Tomorrow and titrate the dose of Coumadin accordingly; perhaps starting 4 mg from tomorrow. 4. Coronary artery disease status post stents, hypertension and dyslipidemia: Home medications continued. Blood pressure is stable and no hypotension 5. BPH on Flomax. Discharge medication reconciliation done. Follow-up instructions given. DVT prophylaxis: On Coumadin. Discharge Activity: May not drive while taking narcotic pain medications. Call your doctor if you observe: Fever of 101 or Higher, Change in Color, Chest pain Home Medications: Medications to take at Discharge fluticasone 50 mcg/actuation nasal spray,suspension 1 spray INTRANASAL QDAY #9.9 g 09/11/17 aspirin 81 mg tablet,delayed release 81 mg PO QDAY 01/09/18 cholecalciferol (vitamin D3) 2,000 unit tablet 2,000 unit PO QDAY 01/09/18 hydrocodone 5 mg-acetaminophen 325 mg tablet 1 tab PO Q6H PRN 01/09/18 tramadol 50 mg tablet 50 mg PO TID PRN tab 01/09/18 calcium carbonate-vitamin D3 600 mg (1,500 mg)-500 unit capsule 1 cap PO QDAY cap 01/12/18 coenzyme Q10 100 mg capsule 100 mg PO QDAY 01/12/18 levocetirizine 5 mg tablet 5 mg PO QHS 01/12/18 pravastatin 40 mg tablet 40 mg PO DAILY #90 tab 01/12/18 warfarin 4 mg tablet 4 mg PO SUTUWETHSA #60 tab 01/12/18 nitroglycerin 0.4 mg sublingual tablet 0.4 mg SUBLINGUAL Q5-15M PRN #25 tab 03/03/18 Denosumab [Prolia] 60 mg SQ Q6M 05/31/18 Glucosam/Mahesh-Msm1/C/Torey/Bosw [Osteo Bi-Flex Caplet] 1 each PO DAILY 05/31/18 Lidocaine 5% 1 patch TOPICAL DAILY 05/31/18 Magnesium Oxide [Mag-Ox 400] 1 tab PO QHS 05/31/18 Potassium Bicarbonate/Cit AC 50 meq PO BID 05/31/18 Tizanidine HCl [Zanaflex] 2 - 4 mg PO QHS PRN 05/31/18 Diltiazem HCl [Cardizem Cd] 120 mg PO QDAY #0 06/01/18 Hydrochlorothiazide [Hctz] 12.5 mg PO QDAY #0 tab 06/01/18 Metoprolol Tartrate 50 mg PO BID #0 06/01/18 Tamsulosin HCl [Flomax] 0.4 mg PO DAILY #0 cap 06/01/18 Warfarin [Coumadin] 5 mg PO MOFR #60 tab 06/01/18 Other Amb Orders: Prothrombin Time w/INR Time Frame: 06/02/18, Location: Laboratory Primary Care Physician: César Chinchilla MD [Primary Care Provider] - Please follow up with your Primary Care Physician in: IN 1-2 WEEKS Please Follow Up With: Primo Rosado MD When: ENT in 2-3 weeks for DIZZINESS, Vertigo Medical Necessity - Tobacco Use Smoking Status: Never smoker Meaningful Use Info Meaningful Use Diagnoses (Choose all that apply): None applicable Code Visit OBSV E&M: 62478 Observation care discharge
== END 2018-06-01 11:28 | disposition home or self-care (01) ==
LOC: ED 11:56 → PCU 12:48
PROVIDERS: Admitting Provider Internal Medicine; Emergency Provider Emergency Medicine; Family Provider Family Medicine; PCP Family Medicine; Visit Provider Internal Medicine
DX: R07.89 Other chest pain (principal); R00.2 Palpitations; R42 Dizziness and giddiness; I48.0 Paroxysmal atrial fibrillation; I10 Essential (primary) hypertension; Z23 Encounter for immunization; I25.2 Old myocardial infarction; I25.10 Atherosclerotic heart disease of native coronary artery without angina pectoris; E78.5 Hyperlipidemia, unspecified; M19.90 Unspecified osteoarthritis, unspecified site; Z79.899 Other long term (current) drug therapy; Z79.82 Long term (current) use of aspirin; N40.0 Benign prostatic hyperplasia without lower urinary tract symptoms; Z95.5 Presence of coronary angioplasty implant and graft; R00.1 Bradycardia, unspecified; E87.6 Hypokalemia
CPT/HCPCS: 36415; 70450; 71045; 78452; 80048; 80061; 84443; 84484; 85025; 85610; 85730; 93005; 93017; 96361; 96374; 96375; 99218; 99283; A9500; G0008; J7030; 90686; A4216; G0378; J2405; J2785

== ENCOUNTER → 2018-06-08 10:31 | Outpatient (CLI) | payer MEDICARE, OTHER, SELFPAY | PROVIDERS: Family Provider Family Medicine; PCP Family Medicine; Referring Provider Family Medicine; Visit Provider Family Medicine | DX: N30.90 Cystitis, unspecified without hematuria (principal) | CPT/HCPCS: 87086 ==

== ENCOUNTER → 2018-06-15 10:55 | Outpatient (CLI) | payer MEDICARE, OTHER, SELFPAY | LOC: MFPLAB 10:56 → LABSPEC 10:58 | PROVIDERS: Family Provider Family Medicine; PCP Family Medicine; Visit Provider Family Medicine | DX: N30.90 Cystitis, unspecified without hematuria (principal) | CPT/HCPCS: 87086 ==

== ENCOUNTER → 2018-06-29 10:45 | Outpatient (CLI) | payer MEDICARE, OTHER, SELFPAY ==
[2018-06-29 12:09] LABS: Anion Gap 8 (5-15); BUN 22 mg/dL (7-18); BUN/Creat Ratio 16.8 RATIO (10-20); Chloride 107 mmol/L (98-107); Creatinine, Serum 1.31 mg/dL (0.70-1.30); EST Glomerular Filtration Rate 56 mL/min (>60); Est Glom Filt Rate - Afr Amer 68 mL/min (>60); Glucose 81 mg/dL (74-106); Potassium 3.7 mmol/L (3.5-5.1); Sodium Level 142 mmol/L (136-145)
[2018-06-29 12:18] LABS: International Normalized Ratio 4.4; Prothrombin Time (Protime)PT. 42.2 SECONDS (11.7-14.9)
== END ==
PROVIDERS: Family Provider Family Medicine; PCP Family Medicine; Visit Provider Family Medicine
DX: I48.91 Unspecified atrial fibrillation (principal)
CPT/HCPCS: 36415; 80048; 85610

== ENCOUNTER 2018-07-04 13:08 | Outpatient (RCR) | payer MEDICARE, OTHER, SELFPAY ==
[2018-07-04 14:00] LABS: International Normalized Ratio 1.5; Prothrombin Time (Protime)PT. 18.2 SECONDS (11.7-14.9)
== END 2018-07-04 14:00 | disposition home or self-care (01) ==
LOC: MTLAB 13:08
PROVIDERS: Family Provider Family Medicine; PCP Family Medicine; Referring Provider Family Medicine; Visit Provider Family Medicine
DX: I48.91 Unspecified atrial fibrillation (principal)
CPT/HCPCS: 36415; 85610

== ENCOUNTER → 2018-09-06 12:10 | Outpatient (CLI) | payer MEDICARE, OTHER, SELFPAY ==
[2018-07-18 09:43] VITALS: BMI 24.9
--- NOTE | 2018-09-06 12:13 | RAD_ITS ---
STUDY: X-RAY RIGHT FOOT, GREAT TOE REASON FOR EXAM: Male, 78 years old. EDEMA-782.3, pain TECHNIQUE: 3 view(s) of the great toe were obtained. COMPARISON: None. FINDINGS: Mild DJD interphalangeal joints of each digit. Next line moderate DJD 1st digit metatarsophalangeal joint with apparent surrounding soft tissue swelling. Joint margin osteophytic lipping and joint space narrowing. No fracture or dislocation. No deep soft tissue gas or radiodense foreign body. RAD/Toe(s) Min 2 Views IMPRESSION: Prominent degeneration of the 1st digit metatarsophalangeal joint with surrounding soft tissue swelling. Possible gout. Electronically Signed: Balbir Wells MD at 10:01 EST Tel , Service support ,
[2018-09-06 14:51] LABS: Absolute Lymphocyte Count 1.07 X10^3/ul (0.83-4.51); Absolute Neutrophil Count 6.2 X10^3/uL (2.0-7.7); Basophil# 0.05 X10^3/uL; Basophil% 0.6 % (0-1); Eosinophil# 0.13 X10^3/uL; Eosinophils% 1.5 % (0-5); Hematocrit 35.1 % (40-54); Hemoglobin 11.5 g/dl (13.0-16.5); Lymphocyte # 1.07 X10^3/ul (4.0); Lymphocyte % 12.6 % (19-41); Mean Corp Hgb Conc 32.8 g/gl (32-36); Mean Corpuscular Hgb 32.3 pg (27.0-32.0); Mean Corpuscular Volume 98.6 fL (80-94); Mean Platelet Vol. 10.6 fl (6.2-12.0); Monocyte# 1.03 X10^3/uL; Monocyte% 12.1 % (0-10); Neutrophil # 6.19 X10^3/uL (2.7-7.7); Platelet Count 280 K/mm3 (150-450); RBC Distribution Width CV 15.8 % (11.6-14.6); RBC Distribution Width SD 56.9 fl (35.1-43.9); Red Blood Count 3.56 M/mm3 (4.6-6.2); White Blood Count 8.5 K/mm3 (4.4-11.0)
[2018-09-06 14:54] LABS: POSITIVE COUNT NO; POSITIVE DIFFERENTIAL NO; POSITIVE MORPHOLOGY NO
[2018-09-06 15:02] LABS: Anion Gap 8 (5-15); BUN 27 mg/dL (7-18); BUN/Creat Ratio 19.3 RATIO (10-20); Calcium,Total 8.9 mg/dL (8.5-10.1); Chloride 106 mmol/L (98-107); EST Glomerular Filtration Rate 52 mL/min (>60); Est Glom Filt Rate - Afr Amer 63 mL/min (>60); Glucose 70 mg/dL (74-106); Potassium 3.5 mmol/L (3.5-5.1); Sodium Level 142 mmol/L (136-145); Uric Acid 7.4 mg/dL (3.5-7.2)
== END ==
PROVIDERS: Family Provider Family Medicine; PCP Family Medicine; Referring Provider Family Medicine; Visit Provider Family Medicine
DX: M25.474 Effusion, right foot (principal)
CPT/HCPCS: 36415; 73660; 80048; 84550; 85025

== ENCOUNTER → 2018-10-31 10:46 | Outpatient (CLI) | payer MEDICARE, OTHER, SELFPAY ==
[2018-07-18 09:43] VITALS: BMI 24.9
[2018-10-31 12:38] LABS: International Normalized Ratio 3.1; Prothrombin Time (Protime)PT. 32.4 SECONDS (11.7-14.9)
== END ==
PROVIDERS: Family Provider Family Medicine; PCP Family Medicine; Referring Provider Family Medicine; Visit Provider Family Medicine
DX: I48.91 Unspecified atrial fibrillation (principal)
CPT/HCPCS: 36415; 85610

== ENCOUNTER → 2018-11-14 15:03 | Outpatient (CLI) | payer MEDICARE, OTHER, SELFPAY ==
[2018-07-18 09:43] VITALS: BMI 24.9
[2018-11-14 17:45] LABS: International Normalized Ratio 2.6; Prothrombin Time (Protime)PT. 27.8 SECONDS (11.7-14.9)
== END ==
PROVIDERS: Family Provider Family Medicine; PCP Family Medicine; Referring Provider Family Medicine; Visit Provider Family Medicine
DX: I48.91 Unspecified atrial fibrillation (principal)
CPT/HCPCS: 36415; 85610

== ENCOUNTER → 2018-12-12 13:08 | Outpatient (CLI) | payer MEDICARE, OTHER, SELFPAY ==
[2018-07-18 09:43] VITALS: BMI 24.9
--- NOTE | 2018-12-12 13:13 | CT_ITS ---
STUDY: CT CHEST WITHOUT CONTRAST REASON FOR EXAM: Male, 78 years old. Chest pain. RADIATION DOSAGE (If Supplied By Facility): CTDIvol = ( 10.34 ) mGy, DLP = ( 336.8 ) mGycm TECHNIQUE: Transaxial imaging was performed without the administration of intravenous contrast material. Multiplanar coronal and sagittal images were reformatted. Individualized dose optimization techniques were used for this CT. COMPARISON: Chest x-ray May 31, 2018. FINDINGS: There are interstitial fibrotic changes of the lungs. There are granulomatous calcifications. There are mild scattered calcified pleural plaques. There are calcifications of the coronary arteries. Normal mediastinum. Normal hilar regions. Normal unenhanced pulmonary arteries. There is atherosclerotic calcification of the aortic arch with tortuosity and elongation of the aortic arch and descending thoracic aorta. 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 There are multi-level degenerative changes of the thoracic spine. There are compression fractures with prior kyphoplasty of T7, T8, T9, T12, and L1. There is no demonstrated abnormality of the visualized upper abdomen. CT/Chest without Contrast IMPRESSION: Fibrotic densities. No focal infiltrate. Atherosclerosis. Multiple prior compression fractures. Electronically Signed: Casimiro Gordon MD at 15:42 EDT , Service support ,
== END ==
PROVIDERS: Family Provider Family Medicine; PCP Family Medicine; Referring Provider Family Medicine; Visit Provider Family Medicine
DX: R07.89 Other chest pain (principal)
CPT/HCPCS: 71250

== ENCOUNTER → 2019-01-02 | Outpatient (CLI) | payer MEDICARE, OTHER, SELFPAY ==
[2018-07-18 09:43] VITALS: BMI 24.9
[2019-01-02 12:34] LABS: Absolute Lymphocyte Count 1.18 X10^3/ul (0.83-4.51); Absolute Neutrophil Count 7.4 X10^3/uL (2.0-7.7); Basophil# 0.04 X10^3/uL; Basophil% 0.4 % (0-1); Eosinophil# 0.07 X10^3/uL; Eosinophils% 0.7 % (0-5); Hemoglobin 12.1 g/dl (13.0-16.5); Lymphocyte # 1.18 X10^3/ul (4.0); Lymphocyte % 12.4 % (19-41); Mean Corp Hgb Conc 32.7 g/gl (32-36); Mean Corpuscular Volume 97.9 fL (80-94); Mean Platelet Vol. 10.7 fl (6.2-12.0); Monocyte# 0.78 X10^3/uL; Monocyte% 8.2 % (0-10); Neutrophil % 78.1 % (47-70); Platelet Count 263 K/mm3 (150-450); RBC Distribution Width CV 16.3 % (11.6-14.6); RBC Distribution Width SD 56.5 fl (35.1-43.9); Red Blood Count 3.78 M/mm3 (4.6-6.2); White Blood Count 9.5 K/mm3 (4.4-11.0)
[2019-01-02 12:41] LABS: POSITIVE COUNT NO; POSITIVE DIFFERENTIAL NO; POSITIVE MORPHOLOGY NO
[2019-01-02 12:54] LABS: Prothrombin Time (Protime)PT. 22.5 SECONDS (11.7-14.9)
[2019-01-02 13:09] LABS: ALB/GLOB Ratio 1.1 RATIO (0.9-2.4); AST(SGOT) 14 U/L (15-37); Alanine Aminotransfer ALT/SGPT 17 U/L (16-61); Albumin, Serum 3.9 g/dL (3.2-5.0); Alkaline Phosphatase 69 U/L (45-117); Anion Gap 9 (5-15); BUN 36 mg/dL (7-18); BUN/Creat Ratio 24.7 RATIO (10-20); Calcium,Total 9.1 mg/dL (8.5-10.1); Chloride 105 mmol/L (98-107); Creatinine, Serum 1.46 mg/dL (0.70-1.30); EST Glomerular Filtration Rate 50 mL/min (>60); Est Glom Filt Rate - Afr Amer 60 mL/min (>60); Globulin 3.6 g/dL (2.2-4.2); Glucose 86 mg/dL (74-106); Magnesium 2.1 mg/dL (1.6-2.6); Potassium 3.2 mmol/L (3.5-5.1); Protein, Total 7.5 g/dL (6.4-8.2); Sodium Level 142 mmol/L (136-145)
[2019-01-02 13:11] LABS: Vitamin D,25 Hydroxy 51.3 ng/mL (29.95-100.01)
== END | disposition home or self-care (01) ==
LOC: MFPLAB 11:19
PROVIDERS: Family Provider Family Medicine; PCP Family Medicine; Referring Provider Family Medicine; Visit Provider Family Medicine
DX: M13.0 Polyarthritis, unspecified (principal); M81.8 Other osteoporosis without current pathological fracture; I48.91 Unspecified atrial fibrillation
CPT/HCPCS: 36415; 80053; 82306; 83735; 85025; 85610

== ENCOUNTER → 2019-01-09 | Outpatient (CLI) | payer MEDICARE, OTHER, SELFPAY ==
[2018-07-18 09:43] VITALS: BMI 24.9
--- NOTE | 2019-01-09 08:47 | BD_ITS ---
STUDY: DUAL ENERGY X-RAY ABSORPTIOMETRY / DXA REASON FOR EXAM: Male, 78 years old. Loss of height. History of multiple compression fractures. Prior vertebral plasty. TECHNIQUE: Bone Mineral Density (BMD) measurements of lumbar spine and bilateral hips were obtained. COMPARISON: Comparison is made with prior study dated March 13, 2013. FINDINGS: Lumbar Spine (L1-L4): g/cm2 (1.656) / T-score (3.5) / Z-score (4.1) Findings are suggestive of normal bone density with a low fracture risk. Prior vertebral plasty of the T7, T10 T12 and L1 vertebrae. Left Femur Total: g/cm2 (0.796) / T-score (-2.1) / Z-score (-1.1) Left Femoral Neck: g/cm2 (0.773) / T-score (-2.3) / Z-score (-0.8) Right Femur Total: g/cm2 (0.870) / T-score (-1.6) / Z-score (-0.6) Right Femoral Neck: g/cm2 (0.841) / T-score (-1.8) / Z-score (-0.3) The T-Scores on the most recent prior examination were: Lumbar Spine (L1-L4): There has been improvement of bone density since the previous examination. Left Femur Total: which represents an improvement of 4.1%. Right Femur Total: which represents an improvement of 3.7%. BD/Dexa Bone Density Study IMPRESSION: The patient is considered osteopenic as outlined below according to World Andreas Organization (WHO) criteria with a high fracture risk. There has been improvement of bone density since the previous examination. Reference Information: The T-score is the number of standard deviations above or below the standard which is normal for young adults at their peak bone mineral density. The World Health Organization (WHO) interprets the T-scores as follows: Above -1 Normal bone density Between -1 and -2.5 Osteopenia Equal to / or below -2.5 Osteoporosis As a practical clinical guideline, osteopenia may be graded as follows: Mild -1 through -1.5 Moderate -1.6 through -2.0 Severe -2.1 through -2.4 The Z-score is the number of standard deviations above or below age-matched controls. A Z-score of less than -1.5 would be considered abnormal. References: 1. NIH Osteoporosis and Related Bone Diseases http://www.osteo.org 2. International Society for Clinical Densitometry http://www.iscd.org 3. National Osteoporosis Foundation http://www.nof.org Electronically Signed: Wilfred Milligan, at 14:09 EDT , Service support ,
== END | disposition home or self-care (01) ==
LOC: OPBD 08:42
PROVIDERS: Family Provider Family Medicine; PCP Family Medicine; Referring Provider Family Medicine; Visit Provider Family Medicine
DX: M81.8 Other osteoporosis without current pathological fracture (principal)
CPT/HCPCS: 77080

== ENCOUNTER → 2019-01-20 | Outpatient (CLI) | payer MEDICARE, OTHER, SELFPAY ==
[2018-07-18 09:43] VITALS: BMI 24.9
[2019-01-20 12:16] LABS: AST(SGOT) 13 U/L (15-37); Alanine Aminotransfer ALT/SGPT 17 U/L (16-61); Albumin, Serum 3.7 g/dL (3.2-5.0); Alkaline Phosphatase 64 U/L (45-117); Bilirubin, Direct 0.29 mg/dL (0.00-0.30); Cholesterol 110 mg/dL (200); Globulin 3.8 g/dL (2.2-4.2); High Density Lipoprotein 48 mg/dL; Protein, Total 7.5 g/dL (6.4-8.2); Triglycerides 71 mg/dL; Very Low Density Lipoprotein 14 mg/dL (5-40)
== END | disposition home or self-care (01) ==
LOC: LAB 11:07
PROVIDERS: Family Provider Family Medicine; PCP Family Medicine; Referring Provider Physician Assistant Medical; Visit Provider Physician Assistant Medical
DX: I48.0 Paroxysmal atrial fibrillation (principal); I25.10 Atherosclerotic heart disease of native coronary artery without angina pectoris; I10 Essential (primary) hypertension; E78.00 Pure hypercholesterolemia, unspecified
CPT/HCPCS: 36415; 80061; 80076

== ENCOUNTER → 2019-04-13 | Outpatient (CLI) | payer MEDICARE, OTHER, SELFPAY ==
[2018-07-18 09:43] VITALS: BMI 24.9
[2019-04-13 12:36] LABS: International Normalized Ratio 1.8; Prothrombin Time (Protime)PT. 20.9 SECONDS (11.7-14.9)
[2019-04-13 12:54] LABS: Anion Gap 7 (5-15); BUN 37 mg/dL (7-18); BUN/Creat Ratio 22.6 RATIO (10-20); Calcium,Total 8.4 mg/dL (8.5-10.1); Chloride 108 mmol/L (98-107); Creatinine, Serum 1.64 mg/dL (0.70-1.30); EST Glomerular Filtration Rate 43 mL/min (>60); Est Glom Filt Rate - Afr Amer 53 mL/min (>60); Glucose 96 mg/dL (74-106); Potassium 3.2 mmol/L (3.5-5.1); Sodium Level 141 mmol/L (136-145)
[2019-04-13 13:37] LABS: Osmolality, Serum 301 mOsm/KG (280-301)
== END | disposition home or self-care (01) ==
LOC: MFPLAB 10:17
PROVIDERS: Family Provider Family Medicine; PCP Family Medicine; Referring Provider Family Medicine; Visit Provider Family Medicine
DX: I48.91 Unspecified atrial fibrillation (principal); E87.6 Hypokalemia
CPT/HCPCS: 36415; 80048; 83930; 85610

== ENCOUNTER → 2019-04-19 | Outpatient (CLI) | payer MEDICARE, OTHER, SELFPAY ==
[2018-07-18 09:43] VITALS: BMI 24.9
--- NOTE | 2019-04-19 11:03 | RAD_ITS ---
STUDY: X-RAY CHEST REASON FOR EXAM: Male, 78 years old. Cough TECHNIQUE: PA and lateral views of the chest. COMPARISON: None. FINDINGS: The lungs are clear and expanded. There is no demonstrated pleural abnormality. Normal size heart. Normal mediastinum and nasrin. Normal visualized pulmonary arteries. There is atherosclerotic tortuosity of the aortic arch and descending thoracic aorta. Status post vertebroplasty at multiple levels in the thoracic lumbar spine. Normal visualized ribs, clavicles, and shoulders. There is no demonstrated abnormality of the visualized soft tissue structures of the upper abdomen. RAD/Chest PA and Lateral IMPRESSION: No active disease. Electronically Signed: Balbir Chicas MD at 11:31 EDT Tel , Service support ,
== END | disposition home or self-care (01) ==
LOC: MTRAD 11:00
PROVIDERS: Family Provider Family Medicine; PCP Family Medicine; Referring Provider Family Medicine; Visit Provider Family Medicine
DX: J20.9 Acute bronchitis, unspecified (principal)
CPT/HCPCS: 71046

== ENCOUNTER → 2019-04-25 | Outpatient (CLI) | payer MEDICARE, OTHER, SELFPAY ==
[2018-07-18 09:43] VITALS: BMI 24.9
[2019-04-25 12:36] LABS: International Normalized Ratio 3.1; Prothrombin Time (Protime)PT. 32.4 SECONDS (11.7-14.9)
[2019-04-25 13:56] LABS: Potassium 3.4 mmol/L (3.5-5.1)
== END | disposition home or self-care (01) ==
LOC: MFPLAB 10:48
PROVIDERS: Family Provider Family Medicine; PCP Family Medicine; Referring Provider Family Medicine; Visit Provider Family Medicine
DX: I48.91 Unspecified atrial fibrillation (principal); E87.6 Hypokalemia
CPT/HCPCS: 36415; 84132; 85610

== ENCOUNTER → 2019-05-04 09:05 | Outpatient (CLI) | payer MEDICARE, OTHER, SELFPAY ==
[2018-07-18 09:43] VITALS: BMI 24.9
[2019-05-04 11:00] LABS: Potassium 3.1 mmol/L (3.5-5.1)
[2019-05-04 11:30] LABS: Prothrombin Time (Protime)PT. 31.5 SECONDS (11.7-14.9)
== END ==
PROVIDERS: Internal Medicine; Family Provider Family Medicine; PCP Family Medicine; Visit Provider Family Medicine
DX: E87.6 Hypokalemia (principal); I48.91 Unspecified atrial fibrillation
CPT/HCPCS: 36415; 84132; 85610

== ENCOUNTER → 2019-05-11 10:52 | Outpatient (CLI) | payer MEDICARE, OTHER, SELFPAY ==
[2018-07-18 09:43] VITALS: BMI 24.9
[2019-05-11 12:54] LABS: Anion Gap 6 (5-15); BUN 28 mg/dL (7-18); BUN/Creat Ratio 19.3 RATIO (10-20); Calcium,Total 8.8 mg/dL (8.5-10.1); Chloride 107 mmol/L (98-107); Creatinine, Serum 1.45 mg/dL (0.70-1.30); EST Glomerular Filtration Rate 50 mL/min (>60); Est Glom Filt Rate - Afr Amer 61 mL/min (>60); Glucose 85 mg/dL (74-106); Magnesium 2.3 mg/dL (1.6-2.6); Potassium 4.3 mmol/L (3.5-5.1); Sodium Level 142 mmol/L (136-145)
[2019-05-11 14:48] LABS: AST(SGOT) 18 U/L (15-37); Alanine Aminotransfer ALT/SGPT 23 U/L (16-61); Albumin, Serum 3.6 g/dL (3.2-5.0); Alkaline Phosphatase 101 U/L (45-117); Bilirubin, Direct 0.28 mg/dL (0.00-0.30); Cholesterol 107 mg/dL (200); Globulin 4.2 g/dL (2.2-4.2); High Density Lipoprotein 51 mg/dL; Protein, Total 7.8 g/dL (6.4-8.2); Triglycerides 77 mg/dL; Very Low Density Lipoprotein 15 mg/dL (5-40)
== END ==
PROVIDERS: Physician Assistant Medical; Family Provider Family Medicine; PCP Family Medicine; Referring Provider Family Medicine; Visit Provider Family Medicine
DX: E78.5 Hyperlipidemia, unspecified (principal); E87.6 Hypokalemia
CPT/HCPCS: 36415; 80048; 80061; 80076; 83735

== ENCOUNTER → 2019-05-17 14:39 | Outpatient (CLI) | payer MEDICARE, OTHER, SELFPAY ==
[2019-05-17 13:49] VITALS: BMI 24.5
[2019-05-17 16:07] LABS: International Normalized Ratio 2.6; Prothrombin Time (Protime)PT. 27.8 SECONDS (11.7-14.9)
[2019-05-17 16:21] LABS: Anion Gap 5 (5-15); BUN 31 mg/dL (7-18); BUN/Creat Ratio 21.1 RATIO (10-20); Chloride 108 mmol/L (98-107); Creatinine, Serum 1.47 mg/dL (0.70-1.30); EST Glomerular Filtration Rate 49 mL/min (>60); Est Glom Filt Rate - Afr Amer 60 mL/min (>60); Glucose 85 mg/dL (74-106); Potassium 3.5 mmol/L (3.5-5.1); Sodium Level 140 mmol/L (136-145)
== END ==
PROVIDERS: Family Provider Family Medicine; PCP Family Medicine; Referring Provider Internal Medicine Cardiovascular Disease; Visit Provider Internal Medicine Cardiovascular Disease
DX: I48.0 Paroxysmal atrial fibrillation (principal); E78.00 Pure hypercholesterolemia, unspecified; I25.10 Atherosclerotic heart disease of native coronary artery without angina pectoris; I10 Essential (primary) hypertension; I27.21 Secondary pulmonary arterial hypertension
CPT/HCPCS: 36415; 80048; 85610

== ENCOUNTER → 2019-05-24 06:17 | Outpatient (CLI) | payer MEDICARE, OTHER, SELFPAY ==
[2019-05-17 13:49] VITALS: BMI 24.5
--- NOTE | 2019-05-24 06:19 | ECHOD_ITS ---
Reason For Study: AFIB.FLUTTER Procedure This was a 2D Doppler, Color Flow transthoracic echocardiogram. Exam performed in department. Left Ventricle Normal LV size. Moderate concentric left ventricular hypertrophy. The estimated ejection fraction is 53 %. Unable to assess diastolic dysfunction due to arrhythmia. No regional wall motion abnormalities noted. Right Ventricle Normal RV size. Normal systolic function. Atria The left atrium is severely enlarged. Normal right atrium. Mitral Valve Bileaflet diffuse mitral valve thickening. Mild (1+) mitral valve insufficiency. Tricuspid Valve Normal tricuspid valve. Moderate (2+) tricuspid valve insufficiency. Pulmonary artery systolic pressure is 50 mmHg. Moderate pulmonary hypertension. Aortic Valve Trisinus/trileaflet aortic valve. Mild diffuse aortic valve thickening. Mild (1+) aortic valve insufficiency. Pulmonic Valve Normal pulmonic valve. Great Vessels Mild to moderately dilated aortic root. The pulmonary artery is normal size. Normal inferior vena cava. Pericardium/Pleural No pericardial effusion. MMode/2D Measurements & Calculations LVIDd: 5.0 cm IVSd: 1.5 cm Ao root diam: 3.9 cm LVIDs: 3.1 cm LVPWd: 1.4 cm RVDd: 3.8 cm FS: 38.0 % LAV(MOD-bp): 139.3 ml LA A4 area: 32.4 cm2 LA dimension(2D): 5.3 cm LAV(MOD-bp) Indexed: 73.0 ml/m2 LAV(MOD-sp2): 141.4 ml LAV(MOD-sp4): 130.0 ml RA A4 area: 18.5 cm2 Doppler Measurements & Calculations MV E max lore: 76.6 cm/sec Ao V2 max: 89.6 cm/sec AI max lore: 386.4 cm/sec Ao max P.2 mmHg AI max P.8 mmHg Ao V2 mean: 64.2 cm/sec AI dec slope: 228.1 cm/sec2 Ao mean P.8 mmHg AI P1/2t: 496.1 msec Ao V2 VTI: 13.9 cm LV V1 max: 63.8 cm/sec PA V2 max: 90.0 cm/sec TR max lore: 323.3 cm/sec LV V1 max P.6 mmHg TR max P.4 mmHg LV V1 mean P.87 mmHg LV V1 mean: 44.0 cm/sec LV V1 VTI: 10.2 cm Interpretation Summary Normal LV size. Moderate concentric left ventricular hypertrophy. The estimated ejection fraction is 53 %. Unable to assess diastolic dysfunction due to arrhythmia. The left atrium is severely enlarged. Bileaflet diffuse mitral valve thickening. Mild (1+) mitral valve insufficiency. Moderate pulmonary hypertension. Mild (1+) aortic valve insufficiency. Ordering Physician: Tremaine Molina Referring Physician: César Chinchilla Performed By: Yasmeen Arredondo, KAT, RVT
--- NOTE | 2019-05-24 16:45 | STRESSREP ---
Stress Test Report Pharmacologic myocardial perfusion stress test. 78-year-old male with a history of atrial fibrillation. Stress protocol: Resting EKG demonstrates atrial for ablation with a rate of 83 bpm occasional premature ventricular complexes noted resting blood pressure 738/90 6 m of mercury. 0.4 mg of regadenoson was infused per usual protocol followed by rapid intravenous saline flush injection continuous radiation monitor was performed. The maximum heart rate attained was 139 bpm which is 97% maximum predicted heart rate. At rest there were no ST or T wave changes noted suggest abnormal flow reserve at peak infusion nonspecific ST-T wave changes were noted with no meet the criteria for ischemia. Myocardial perfusion protocol. 11.4 mCi of technetium 99m sestamibi was injected 0.4 mg of regadenoson was infused per usual protocol peak infusion 33.8 mCi of technetium 99m sestamibi was injected stress images were obtained stress and rest images were reconstructed and compared in the short axis vertical and horizontal long axis. Gated images were also obtained Perfusion SPECT analysis: Review of the stress images demonstrate normal uptake of tracer noted in all areas of the myocardium the resting images similar demonstrate normal uptake of tracer noted in all areas of the myocardium. No areas of reversibility are noted suggest ischemia no previous infarct is noted. Gated SPECT analysis: The gated ejection fraction is noted to be 54%. Conclusion: Normal pharmacologic myocardial perfusion stress test. Atrial fibrillation. Preserved ejection fraction.
== END ==
PROVIDERS: Family Provider Family Medicine; PCP Family Medicine; Referring Provider Internal Medicine Cardiovascular Disease; Visit Provider Internal Medicine Cardiovascular Disease
DX: I48.0 Paroxysmal atrial fibrillation (principal); I25.10 Atherosclerotic heart disease of native coronary artery without angina pectoris; E78.00 Pure hypercholesterolemia, unspecified; I10 Essential (primary) hypertension; I27.21 Secondary pulmonary arterial hypertension
CPT/HCPCS: 78452; 93017; 93306; A9500; A4216; J2785

== ENCOUNTER → 2019-05-25 12:16 | Outpatient (CLI) | payer MEDICARE, OTHER, SELFPAY ==
[2019-05-17 13:49] VITALS: BMI 24.5
[2019-05-25 16:33] LABS: International Normalized Ratio 3.2; Prothrombin Time (Protime)PT. 32.7 SECONDS (11.7-14.9)
== END ==
PROVIDERS: Family Provider Family Medicine; PCP Family Medicine; Referring Provider Internal Medicine Cardiovascular Disease; Visit Provider Internal Medicine Cardiovascular Disease
DX: Z79.01 Long term (current) use of anticoagulants (principal)
CPT/HCPCS: 36415; 85610

== ENCOUNTER 2019-06-14 14:13 | Outpatient (RCR) | payer MEDICARE, OTHER, SELFPAY ==
[2019-05-17 13:49] VITALS: BMI 24.5
[2019-06-08 17:35] LABS: International Normalized Ratio 3.3; Prothrombin Time (Protime)PT. 33.7 SECONDS (11.7-14.9)
[2019-06-14 15:31] LABS: International Normalized Ratio 3.2; Prothrombin Time (Protime)PT. 33.2 SECONDS (11.7-14.9)
[2019-06-14 15:46] LABS: Anion Gap 7 (5-15); BUN 31 mg/dL (7-18); Calcium,Total 8.6 mg/dL (8.5-10.1); Chloride 106 mmol/L (98-107); Creatinine, Serum 1.41 mg/dL (0.70-1.30); EST Glomerular Filtration Rate 52 mL/min (>60); Est Glom Filt Rate - Afr Amer 63 mL/min (>60); Glucose 81 mg/dL (74-106); Potassium 3.5 mmol/L (3.5-5.1); Sodium Level 141 mmol/L (136-145)
== END 2019-06-14 18:00 | disposition home or self-care (01) ==
LOC: LAB 14:13
PROVIDERS: Family Provider Family Medicine; PCP Family Medicine; Referring Provider Internal Medicine Cardiovascular Disease; Visit Provider Internal Medicine Cardiovascular Disease
DX: Z79.01 Long term (current) use of anticoagulants (principal)
CPT/HCPCS: 36415; 80048; 85610

== ENCOUNTER 2019-06-18 11:01 | Day surgery (SDC) | payer MEDICARE, OTHER, SELFPAY ==
[2019-05-17 13:49] VITALS: BMI 24.5
[2019-06-01 11:37] LABS: International Normalized Ratio 2.9; Prothrombin Time (Protime)PT. 30.4 SECONDS (11.7-14.9)
[2019-06-18 11:22] VITALS: BMI 25.0
--- NOTE | 2019-06-18 11:25 | HP.PCM_ITS ---
History and Physical Date of Admission: 06/18/19 [facility] History of Present Illness Details: RICHIE HANSEN, is a 79 M who presents to the [facility] today for an outpatient cardioversion. He has a history of coronary artery disease with stenting to his LAD in July 2000, atrial fibrillation with pulmonary vein isolation in 2011, hypertension and hyperlipidemia. He presents today for follow-up visit. He says that he thinks that he is in atrial fibrillation. Patient was seen in office on 05/17/2019. His EKG at that time showed atrial fi brillation. He underwent an echocardiogram on 05/24/2019 that showed ejection fraction of 53%, moderate concentric left ventricular hypertrophy, severely enlarged left atrium, mild mitral valve insufficiency, moderate tricuspid valve insufficiency, RVSP of 50 mmHg, mild aortic valve insufficiency, and mild to moderately dilated aortic root. He underwent a nuclear stress test on 05/24/2019 that showed a normal pharmacologic myocardial perfusion stress test with a preserved ejection fraction. Atrial fibrillation was also noted at that time. He presents today for outpatient cardioversion. He states taking Coumadin therapy consistently. He denies chest, arm, jaw, or neck discomfort. His exercise tolerance is stable. He denies symptoms of CHF, lightheadedness, dizziness, near syncope, or sy ncopal episodes. He denies edema or claudication issues. He denies orthopnea, PND, blood in urine, blood in stool, or myalgia. He states since noting atrial fibrillation he has felt more fatigue and palpitations. Intake Vital Signs: See EMR Intake Visit Reasons: DCCV Allergies prednisone Allergy (Verified 05/17/19 13:13) Rash diclofenac Adverse Reaction (Verified 05/17/19 13:13) rash Medications fluticasone propionate 50 mcg/actuation nasal spray,suspension 1 spray INTRANASAL QDAY #9.9 g 09/11/17 [Rx Confirmed 05/17/19] aspirin 81 mg tablet,delayed release 81 mg PO QDAY 01/09/18 [History Confirmed 05/17/19] cholecalciferol (vitamin D3) 2,000 unit tablet 2,000 unit PO QDAY 01/09/18 [History Confirmed 05/17/19] tramadol 50 mg tablet 50 mg PO TID PRN tab 01/09/18 [History Confirmed 05/17/19] calcium carbonate 600 mg (1,500 mg)-vitamin D3 500 unit capsule 1 cap PO QDAY cap 01/12/18 [History Confirmed 05/17/19] nitroglycerin 0.4 mg sublingual tablet 0.4 mg SUBLINGUAL Q5-15M PRN #25 tab 03/03/18 [Rx Confirmed 05/17/19] Denosumab [Prolia] 60 mg SQ Q6M 05/31/18 [History Confirmed 05/17/19] Lidocaine 5% 1 patch TOPICAL DAILY 05/31/18 [History Confirmed 05/17/19] Magnesium Oxide [Mag-Ox 400] 1 tab PO QHS 05/31/18 [History Confirmed 05/17/19] Potassium Bicarbonate/Cit AC 50 meq PO BID 05/31/18 [History Confirmed 05/17/19] Tizanidine HCl [Zanaflex] 2 - 4 mg PO QHS PRN 05/31/18 [History Confirmed 05/17/19] Tamsulosin HCl [Flomax] 0.4 mg PO DAILY #0 cap 06/01/18 [Rx Confirmed 05/17/19] Bifidobacterium infantis 4 mg capsule 4 mg PO DAILY 07/18/18 [History Confirmed 05/17/19] cefdinir 300 mg capsule 300 mg PO Q12H 07/18/18 [History Confirmed 05/17/19] esomeprazole magnesium 40 mg capsule,delayed release 40 mg PO DAILY 07/18/18 [History Confirmed 05/17/19] glucosamine 750 [id number] no1 644 mg-C 30 mg-pamela 1 mg tablet 2 tab PO DAILY tab 07/18/18 [History Confirmed 05/17/19] levocetirizine 5 mg tablet 5 mg PO QHS PRN 07/18/18 [History Confirmed 05/17/19] meclizine 25 mg tablet 25 mg PO TID PRN 07/18/18 [History Confirmed 05/17/19] metoprolol tartrate 50 mg tablet 50 mg PO BID #180 tab 07/18/18 [Rx Confirmed 05/17/19] warfarin 5 mg tablet 5 mg PO .COMPLEX #0 tab 11/15/18 [Rx Confirmed 05/17/19] hydrochlorothiazide 25 mg tablet 25 mg PO DAILY #90 tab 11/22/18 [Rx Confirmed 05/17/19] diltiazem CD 180 mg capsule,extended release 24 hr 180 mg PO DAILY #1 cap 12/25/18 [Rx Confirmed 05/17/19] pravastatin 40 mg tablet 40 mg PO DAILY #90 tab 03/16/19 [Rx Confirmed 05/17/19] warfarin 4 mg tablet 4 mg PO .MANAGED BY PCP #60 tab 04/09/19 [Rx Confirmed 05/17/19] [facility] Medical History Secondary pulmonary arterial hypertension (Chronic) Atherosclerotic heart disease of [place] coronary artery without angina pectoris (Chronic) Paroxysmal atrial fibrillation (Chronic) Essential (primary) hypertension (Chronic) HLD (hyperlipidemia) (Chronic) Old myocardial infarction (Chronic) History of electrophysiologic study (Resolved 08/08/00) Arthritis (Chronic) BPH (benign prostatic hyperplasia) (Chronic) Hay fever (Chronic) History of hyperthyroidism (Chronic) Atrial fibrillation with RVR (Resolved) Back pain (Resolved) C. difficile colitis (Resolved) Hypokalemia (Resolved) Knee pain (Resolved) Neck pain (Resolved) Generalized weakness (Inactive) Surgical History History of coronary artery stent placement (Resolved 08/04/00) History of cardioversion (Resolved 2009) History of radiofrequency ablation procedure for cardiac arrhythmia (Resolved 11/11/11) History of back surgery (Chronic) History of Zenaida fundoplication (Resolved) History of hemorrhoidectomy (Resolved) History of hernia repair (Resolved) History of left heart catheterization (Resolved 07/17/12) Family History Father Cancer Prostate cancer Mother Hypertension Sister Hypertension Social History (Updated 05/17/19 @ 14:22 by Tremaine Molina MD) Smoking Status: Never smoker alcohol intake: never substance use type: does not use caffeine: No ROS Const Const: Positive for fatigue; negative for weakness, headache(s), frequent falls, difficulty sleeping or excessive sweating Eyes Eyes: Positive for change in vision (right eye blood clot); negative for loss of peripheral vision, transient loss of vision, blurry vision, double vision or tunnel vision ENT ENT: Negative for headache(s), dizziness, Nosebleed/epistaxis or balance problems Cardio Chest Pain: No Palpitations: Yes Edema: None Muscle aches with walking: None Resp Respiratory: Negative for SOB with activity, SOB at rest, SOB orthopnea\SOB lying down, Cough or paroxysmal nocturnal dyspnea Additional Details: Recent pneumonia GI GI: Negative nausea, vomiting, heartburn or black,tarry stools : Negative for hematuria Musc Musc: Positive for joint pain (back pain); negative for muscle aches/ myalgia, muscle weakness or balance problems Skin Skin: Negative non-healing lesions, rash or unusual bruising Neuro Neuro: Negative for dizziness, lightheadedness, near syncope, syncope, orthostatic symptoms, frequent falls, headache(s), weakness, blurry vision, double vision or lack of coordination Giacomo Hematologic/Lymphatic: Negative for easy bleeding or easy bruising Endo Endo: Positive for fatigue; negative for excessive sweating or increased thirst/drinking Psych Psych: Negative for anxiety or depression Allergy Allergy/Immunology: Negative for hives, Negative for rash Cardiology Exam Const Appearance: cooperative, healthy appearing, no acute distress, well developed and well groomed Nutritional Appearance: average body habitus and well nourished Orientation: alert, awake and oriented x3 Head Head: normal to inspection, normocephalic and atraumatic Ears: hearing grossly normal bilaterally and external ears normal Nose: external nose normal, nares normal, nasal mucous membranes and turbinates normal, septum normal, no nasal discharge Face and Sinus: face symmetric Mouth: oral mucosae normal, tongue normal, oropharynx normal and moist mucous membranes Teeth and gingiva: dentition normal Throat: posterior oropharynx normal, tonsils normal and uvula midline Eyes General: appearance normal, both eyes and all related structures Eyelids: eyelids normal Conjunctivae: conjunctivae normal Pupils: PERRL, normal by confrontation and accommodation normal EOM: EOM intact bilaterally Neck Neck: normal visual inspection, trachea midline and no JVD JVD: +5 Carotids: normal carotid upstroke and bounding pulses Chest Chest inspection: normal inspection of the chest, symmetric chest movement and normal respiratory effort Auscultation: Bilateral: Clear to Auscultation Cardio Palpation: normal PMI Rate: regular rate Rhythm: irregular rhythm Heart sounds: S1 normal, S2 normal and normal; negative rub, gallop or murmur GI GI: normal to inspection, soft, no hepatosplenomegaly and bowel sounds present Neuro General: alert, awake, oriented x3, gait normal, moves all extremities and no focal sensory deficit Skin Skin: no rashes or lesions noted Extremities Pulses: Normal: Right Femoral Pulse, Left Femoral Pulse, Right Dorsalis Pedis Pulse, Left Dorsalis Pedis Pulse, Right Posterior Tibial Pulse, Left Posterior Tibial Pulse, Right Radial Pulse, Left Radial Pulse Lower Extremity Edema: None: Bilateral Musculoskel Musculoskeletal: No joint tenderness Psych Psychological: normal affect Assessment & Plan 1. Paroxysmal atrial fibrillation I48.0 RFA 2011 Plan He does have history of radiofrequency ablation procedure in 2011. His EKG continues to show atrial fibrillation. His heart rate is well controlled. He will proceed with outpatient cardioversion. He will return to office in approximately 1 week to evaluate rhythm. Based on response, further recommendation will be made. 2. Essential (primary) hypertension I10 Plan He does have a history of hypertension with his blood pressure being better controlled at this particular time. No other changes were made with respect to the above. 3. Pure hypercholesterolemia E78.00 Plan He does have a history of hyperlipidemia. His most recent lipid profile d emonstrated a total cholesterol 107, LDL 41 HDL of 51. No other changes will be made. 4. Atherosclerosis of [place] coronary artery of [place] heart without angina pectoris I25.10 [id number] LAD w/ 3.5 x 15 mm S670 08/04/2000 Plan Patient's most recent nuclear stress test was negative for ischemia. His most recent echocardiogram showed preserved ejection fraction. At this time, he will continue current medical therapy. He was reminded to continue with lifestyle and risk factor modification. 5. Secondary pulmonary arterial hypertension I27.21 Plan He does have evidence of pulmonary hypertension the etiology of which is likely secondary to his atrial fibrillation. His echocardiogram in April 2019 showed RVSP of 50 mmHg. Hopefully by maintaining sinus rhythm this improves. At this time, he will continue current medical therapy. This will continually be evaluated on outpatient basis. Thank you for allowing us to participate in the patients plan of care, if you have any questions please do not hesitate to call. This note was generated using a voice recognition system and there may be incorrect words, spelling or punctuation that were not noted when reviewing the office note prior to saving.
[2019-06-18 12:15] LABS: Prothrombin Time Fingerstick 31.6 SEC (11.9-14.4)
--- NOTE | 2019-06-18 12:43 | CARDIOVERS ---
Cardioversion Cardioversion: DC cardioversion. 79-year-old man with a history of chronic persistent symptomatic atrial fibrillation on therapeutic anticoagulation. The patient was brought to the cardiac catheterization lab in the postabsorptive nonsedated state. The patient was seen by Dr. Peters of the critical care division. Informed consent was obtained. Anterior-posterior pads were then applied. After atrial fibrillation was confirmed 40 mg of intravenous propofol was injected. 200 J of synchronized DC cardioversion energy were then applied with prompt reversal to sinus rhythm. The patient tolerated the procedure well. Conclusion: Successful DC cardioversion from atrial fibrillation to sinus rhythm. Continue current medical therapy.
--- NOTE | 2019-06-18 12:47 | PRO.PCM_ITS ---
Procedure Report Date of Procedure: 06/18/19 CONSCIOUS SEDATION REPORT DATE OF SERVICE: June 18, 2019 BRIEF HISTORY OF PRESENT ILLNESS: The patient is a 79-year-old male who presented to [facility] [place] for an elective outpatient cardioversion due to underlying atrial fibrillation. The patient is currently anticoagulated on Coumadin with an INR of 2.8 today. His last surface echocardiogram revealed an ejection fraction of approximately 55%. The patient does carry a known diagnosis of obstructive sleep apnea, for which he is currently noncompliant with use of nocturnal Pap therapy. He denies ever having been diagnosed with COPD or asthma. He denies any previous anesthetic complications. PHYSICAL EXAMINATION: VITAL SIGNS: Reviewed and were acceptable. GENERAL: The patient is a male, in no apparent distress, speaking in full sentences. HEENT: Normocephalic, atraumatic. Mucous membranes are moist and pink. Good mouth opening noted. Trachea is midline. CHEST: S1, S2 irregularly irregular. No murmurs, rubs or gallops were noted. LUNGS: Clear to auscultation bilaterally without appreciable wheezes, rales or rhonchi. ABDOMEN: Soft, nontender, nondistended. Positive bowel sounds. EXTREMITIES: There is no clubbing, cyanosis or edema. ASA Class: II DESCRIPTION OF PROCEDURE: After confirmation of informed consent, the patient's anesthesia plan was reviewed in detail. Propofol was chosen. Risks and benefits were reviewed and the patient agreed to proceed. At 1230, the patient was given 40 mg of propofol. The patient achieved an appropriate level of sedation and was given a 200 joule synchronized cardioversion by Dr. Molina at the bedside. This was successful in achieving normal sinus rhythm. The patient was monitored until 1242, at which time he reached his baseline mental status and function. The patient tolerated the procedure well. COMPLICATIONS: None ESTIMATED BLOOD LOSS: None RECOMMENDATIONS: Okay to recover in usual fashion. Code Visit 9xxxx: Other Procedure See Report - [id number]
== END 2019-06-18 13:35 | disposition home or self-care (01) ==
LOC: CLSP 11:02
PROVIDERS: Family Provider Family Medicine; PCP Family Medicine; Referring Provider Internal Medicine Cardiovascular Disease; Visit Provider Internal Medicine Cardiovascular Disease
DX: I48.19 Other persistent atrial fibrillation (principal); I10 Essential (primary) hypertension; E78.00 Pure hypercholesterolemia, unspecified; I27.21 Secondary pulmonary arterial hypertension; I25.10 Atherosclerotic heart disease of native coronary artery without angina pectoris; I25.2 Old myocardial infarction; M19.90 Unspecified osteoarthritis, unspecified site; E05.00 Thyrotoxicosis with diffuse goiter without thyrotoxic crisis or storm; N40.0 Benign prostatic hyperplasia without lower urinary tract symptoms; G47.33 Obstructive sleep apnea (adult) (pediatric); Z91.19 Patient's noncompliance with other medical treatment and regimen; Z87.19 Personal history of other diseases of the digestive system; Z95.5 Presence of coronary angioplasty implant and graft; Z79.82 Long term (current) use of aspirin; Z79.01 Long term (current) use of anticoagulants; Z79.899 Other long term (current) drug therapy
CPT/HCPCS: 36415; 36416; 85610; 92960; 93005; J7040

== ENCOUNTER 2019-08-02 10:17 | Emergency (ER) | payer MEDICARE, OTHER, SELFPAY ==
[2019-06-26 14:42] VITALS: BMI 25.0
[2019-08-02 10:18] VITALS: BP 156/95; PULSE 63; RESP 15; TEMP 36.4; O2SAT 99; BMI 22.8
--- NOTE | 2019-08-02 10:28 | EKG12_ITS ---
Test Reason : HTN Blood Pressure : / mmHG Vent. Rate : 060 BPM Atrial Rate : 060 BPM P-R Int : 162 ms QRS Dur : 098 ms QT Int : 422 ms P-R-T Axes : 070 012 025 degrees QTc Int : 422 ms Sinus rhythm with Premature atrial complexes Otherwise normal ECG Confirmed by JOSE KASPER, JESSICA ([id number]), manuscript editor LENA GALLEGO ([id number]) on 08/05/2019 9:58:26 AM Referred By: ROSA Confirmed By:CAM GARCIA MD
--- NOTE | 2019-08-02 10:29 | CT_ITS ---
STUDY: CT BRAIN WITHOUT CONTRAST REASON FOR EXAM: Male, 79 years old. Dizziness, hypertension RADIATION DOSAGE (If Supplied By Facility): CTDIvol = ( 44.99 ) mGy, DLP = ( 796.11 ) mGycm TECHNIQUE: Transaxial CT imaging of the brain was performed without administration of intravenous contrast material. Individualized dose optimization techniques were used for this CT. COMPARISON: 05/31/2018 FINDINGS: Normal soft tissue structures. Normal calvarium. There is mild cerebral atrophy with widening of the extra-axial spaces and ventricular dilatation. There are areas of decreased attenuation within the white matter tracts of the supratentorial brain, consistent with microvascular disease changes. Normal basal ganglia and thalami. Normal brainstem. Normal cerebellum. There is no intracranial hemorrhage. There are no findings of an acute ischemic infarction. Normal visualized paranasal sinuses. CT/Brain/Head without Contrast IMPRESSION: Chronic involutional changes of the brain. Electronically Signed: Balbir Chicas MD at 11:49 EST Tel , Service support ,
--- NOTE | 2019-08-02 10:31 | ED.VIS.GEN ---
History of Present Illness Chief Complaint: Hypertension Informant: Patient Onset: Days Current Severity: Mild Narrative: Complains of intermittent dizziness for days that is worse with ambulation or movement better with rest, he has no history of stroke TIA, has history of cardiac stent years ago, history of recent what sounds like cardiac ablation for [facility] currently on Coumadin INRs have been running 2.5, no chest pain fever cough normal bowel and bladder habits also indicates he can tell his blood pressures been elevated to about the 170/120 range as he has had the dizziness which usually indicates his blood pressure is high, he does not know why his blood pressure would be high as he is taking all his medications and his health status has been stable, he spoke with his physicians today and was instructed to come to the hospital So he has had dizziness in the past the etiology is usually related to blood pressure or dehydration he is never had a stroke or seizure Past Medical History - Allergies and Home Meds Allergies/Adverse Reactions: Allergies prednisone Allergy (Verified 05/17/19 13:13) Rash diclofenac Adverse Reaction (Verified 05/17/19 13:13) rash Primary Care Physician: César Chinchilla MD [Primary Care Provider] - Past Medical History: - - [facility] with an ablation, cardiac stent hypertension and as above Surgical History: angioplasty, - - cardiversion, 3 hernia operations, back surgey 3 times hemorrhoid surgery. Smoking Status: Never smoker - Family History Paternal Family History: Family History (Last Reviewed 05/17/19 @ 14:09 by Tremaine Molina MD) Father Cancer Mother Hypertension Sister Hypertension Family History: Reports: - - prostate cancer Maternal Family History: Family History (Last Reviewed 05/17/19 @ 14:09 by Tremaine Molina MD) Father Cancer Mother Hypertension Sister Hypertension Family History: Reports: Heart Disease, - - Study of cardiac disease in his maternal side Review of Systems General: Denies: Chills, Fever, Sweats Eyes: Denies: Visual changes - bilaterally, Diplopia ENT: Denies: Rhinorrhea, Sore throat Cardiovascular: Denies: Chest pain, Palpitations Respiratory: Denies: Dyspnea, Cough, Dyspnea on exertion Gastrointestinal: Denies: Abdominal pain, Nausea, Vomiting, Diarrhea, Melena, Hematochezia Genitourinary: Denies: Dysuria, Hematuria, Frequency Musculoskeletal: Denies: Back pain, Extremity Pain Skin: Denies: Rash, Wounds Neurological: Reports: - - Dizziness which she describes as spinning no cranial nerve no motor nor sensory no other abnormalities he has a chronic brace he wears to the left leg. Denies: Headache, Weakness, Numbness Physical Exam Vital Signs/Narrative: Vital Signs Temp Pulse Resp BP Pulse Ox 08/02/19 10:18 97.6 F L 63 15 156/95 H 99 General: Well nourished, Well developed, No Acute Distress Head: Normocephalic, Atraumatic Eyes: Perrl, EOMI ENT: Moist mucous membranes, No rhinorrhea Neck: Supple, Nontender Cardiovascular: Regular rate, Regular rhythm, No murmurs Respiratory: No distress, CTA bilaterally, Chest nontender Abdomen: Soft, Nontender, Nondistended, Normal bowel sounds Back: Nontender, Normal Inspection Extremities: Nontender, No edema, - - He has a normal gait he has a slight limp related to wearing a brace the left leg because his foot does not work his NIH is 0 his cranial nerves are normal speech is normal his memory and cognition are normal there is no nystagmus when he sits down his dizziness seems better Skin: Normal color, No rash Neurological: Alert, Oriented x3, Cranial nerves II-XII grossly intact, Normal Strength, Normal Sensation Psychological: Normal affect, Normal Mood Diagnostic/Tx/Re-eval - Medical Decision Making Given all of the above screening labs CT EKG Patient's EKG shows a sinus rhythm rate 60 no acute injury pattern intervals normal The patient screening work-up with labs CT head all generally unremarkable please see those reports nothing acute, On reevaluation the patient's blood pressure is about 130/70 indicates he feels much better we discussed the results we discussed differential diagnosis, we discussed inpatient versus outpatient management he does not wish to be admitted he feels better he wants to go home to follow-up with his outpatient providers he will return for change in symptoms Home stable declined admission Impression FINAL Transient intermittent dizziness resolved etiology unclear ED Disposition - Plan for ED Patient: Diagnosis: Dizziness Instructions: HYPERTENSION, Established, DIZZINESS, Unk Cause Referrals: César Chinchilla MD [Primary Care Provider] -
[2019-08-02 10:32] VITALS: O2SAT 96
--- NOTE | 2019-08-02 10:40 | RAD_ITS ---
STUDY: X-RAY CHEST REASON FOR EXAM: Male, 79 years old. Chest pain. TECHNIQUE: Single AP portable view of the chest. COMPARISON: Comparison is made with prior study dated April 19, 2019. FINDINGS: EKG electrodes are seen. Stable increasing markings at the right lung base suggestive of scarring. There is no demonstrated pleural abnormality. There is mild cardiac enlargement. Normal mediastinum and nasrin. Normal visualized pulmonary arteries. There is atherosclerotic tortuosity of the aortic arch and descending thoracic aorta. Prior multilevel vertebroplasty. Normal visualized ribs, clavicles, and shoulders. There is no demonstrated abnormality of the visualized soft tissue structures of the upper abdomen. RAD/Chest 1 View (Portable) IMPRESSION: Mild cardiomegaly. Stable mild increased markings at the right lung base suggestive of linear scarring. Electronically Signed: Wilfred Milligan, at 11:16 EST , Service support ,
[2019-08-02] MEDS: cloNIDine HCl 0.1 MG Tablet 0.2 MG PO (10:49)
[2019-08-02 10:52] VITALS: BP 139/89; PULSE 70; RESP 19; O2SAT 98
[2019-08-02 11:01] LABS: Absolute Lymphocyte Count 0.97 X10^3/uL (0.83-4.51); Absolute Neutrophil Count 5.8 X10^3/uL (2.0-7.7); Basophil# 0.05 X10^3/uL; Basophil% 0.7 % (0-1); Eosinophil# 0.06 X10^3/uL; Eosinophils% 0.8 % (0-5); Hematocrit 36.5 % (40-54); Hemoglobin 12.7 g/dL (13.0-16.5); Lymphocyte # 0.97 X10^3/ul (4.0); Lymphocyte % 12.9 % (19-41); Mean Corp Hgb Conc 34.8 g/dL (32-36); Mean Corpuscular Hgb 35.8 pg (27.0-32.0); Mean Corpuscular Volume 102.8 fL (80-94); Monocyte# 0.65 X10^3/uL; Monocyte% 8.7 % (0-10); NRBC Flagged by Analyzer 0 % (0-5); Neutrophil # 5.75 X10^3/uL (2.7-7.7); Neutrophil % 76.6 % (47-70); Platelet Count 247 K/mm3 (150-450); RBC Distribution Width CV 15.2 % (11.6-14.6); RBC Distribution Width SD 57.1 fl (35.1-43.9); Red Blood Count 3.55 M/mm3 (4.6-6.2); White Blood Count 7.5 K/mm3 (4.4-11.0)
[2019-08-02 11:21] LABS: Anion Gap 7 (5-15); BUN 26 mg/dL (7-18); BUN/Creat Ratio 19.1 RATIO (10-20); Calcium,Total 8.5 mg/dL (8.5-10.1); Chloride 107 mmol/L (98-107); Creatinine, Serum 1.36 mg/dL (0.70-1.30); EST Glomerular Filtration Rate 54 mL/min (>60); Est Glom Filt Rate - Afr Amer 65 mL/min (>60); Estimated Creatinine Clearance 43.08 ml/min; Glucose 87 mg/dL (74-106); Potassium 3.3 mmol/L (3.5-5.1); Sodium Level 142 mmol/L (136-145)
[2019-08-02 12:50] LABS: Prothrombin Time (Protime)PT. 22.7 SECONDS (11.7-14.9)
[2019-08-02 13:56] VITALS: BP 142/77; PULSE 68; RESP 15; O2SAT 98
== END 2019-08-02 13:57 | disposition home or self-care (01) ==
PROVIDERS: Emergency Provider Emergency Medicine; Family Provider Family Medicine; PCP Family Medicine
DX: R42 Dizziness and giddiness (principal); I48.91 Unspecified atrial fibrillation; I10 Essential (primary) hypertension; Z95.5 Presence of coronary angioplasty implant and graft; Z79.82 Long term (current) use of aspirin; Z79.01 Long term (current) use of anticoagulants; Z79.899 Other long term (current) drug therapy
CPT/HCPCS: 70450; 71045; 80048; 84484; 85025; 85610; 93005; 96360; 96361; 99285; J7040; A4216

== ENCOUNTER → 2019-08-07 12:32 | Outpatient (CLI) | payer MEDICARE, OTHER, SELFPAY ==
[2019-08-02 10:18] VITALS: BMI 22.8
[2019-08-07 13:57] LABS: Absolute Lymphocyte Count 1.23 X10^3/uL (0.83-4.51); Absolute Neutrophil Count 6.2 X10^3/uL (2.0-7.7); Basophil# 0.05 X10^3/uL; Basophil% 0.6 % (0-1); Eosinophil# 0.08 X10^3/uL; Hematocrit 39.1 % (40-54); Hemoglobin 13.3 g/dL (13.0-16.5); Lymphocyte # 1.23 X10^3/ul (4.0); Lymphocyte % 14.8 % (19-41); Mean Corpuscular Hgb 34.9 pg (27.0-32.0); Mean Corpuscular Volume 102.6 fL (80-94); Mean Platelet Vol. 10.4 fl (6.2-12.0); Monocyte# 0.69 X10^3/uL; Monocyte% 8.3 % (0-10); NRBC Flagged by Analyzer 0 % (0-5); Neutrophil # 6.23 X10^3/uL (2.7-7.7); Neutrophil % 74.9 % (47-70); Platelet Count 260 K/mm3 (150-450); RBC Distribution Width CV 14.9 % (11.6-14.6); RBC Distribution Width SD 56.8 fl (35.1-43.9); Red Blood Count 3.81 M/mm3 (4.6-6.2); White Blood Count 8.3 K/mm3 (4.4-11.0)
[2019-08-07 14:22] LABS: AST(SGOT) 14 U/L (15-37); Alanine Aminotransfer ALT/SGPT 17 U/L (16-61); Albumin, Serum 3.8 g/dL (3.2-5.0); Alkaline Phosphatase 66 U/L (45-117); Anion Gap 5 (5-15); BUN 25 mg/dL (7-18); BUN/Creat Ratio 17.2 RATIO (10-20); Calcium,Total 9.1 mg/dL (8.5-10.1); Chloride 107 mmol/L (98-107); Creatinine, Serum 1.45 mg/dL (0.70-1.30); EST Glomerular Filtration Rate 50 mL/min (>60); Est Glom Filt Rate - Afr Amer 61 mL/min (>60); Globulin 3.8 g/dL (2.2-4.2); Glucose 78 mg/dL (74-106); Potassium 3.2 mmol/L (3.5-5.1); Protein, Total 7.6 g/dL (6.4-8.2); Sodium Level 140 mmol/L (136-145); Thyroid Stim Hormone (TSH) 1.32 uIU/mL (0.358-3.74)
== END ==
PROVIDERS: Family Provider Family Medicine; PCP Family Medicine; Referring Provider Family Medicine; Visit Provider Family Medicine
DX: I10 Essential (primary) hypertension (principal); E87.6 Hypokalemia
CPT/HCPCS: 36415; 80053; 83735; 84443; 85025

== ENCOUNTER → 2019-08-15 06:51 | Outpatient (CLI) | payer MEDICARE, OTHER, SELFPAY ==
[2019-08-02 10:18] VITALS: BMI 22.8
--- NOTE | 2019-08-15 06:53 | CT_ITS ---
STUDY: CT MAXILLOFACIAL SINUSES REASON FOR EXAM: Male, 79 years old. One-week history of drainage and dizziness. RADIATION DOSAGE (If Supplied By Facility): CTDIvol = ( 29.38 ) mGy, DLP = ( 385.84 ) mGycm TECHNIQUE: The patient was scanned in a multi detector CT scanner. High resolution axial imaging was performed without the administration of intravenous contrast material. Sagittal and coronal images were reconstructed. Individualized dose optimization techniques were used for this CT. COMPARISON: None. FINDINGS: FRONTAL SINUSES: Normal aeration, without mucosal inflammatory disease. ETHMOIDAL SINUSES: Normal aeration, without mucosal inflammatory disease. MAXILLARY SINUSES: Mucosal thickening of the maxillary sinuses bilaterally. SPHENOIDAL SINUSES: Normal aeration, without mucosal inflammatory disease. There is compromise of the ostiomeatal complex bilaterally due to mucosal hypertrophy. Normal bilateral middle turbinates. There is hypertrophy of the right inferior nasal turbinate. There is a left sided nasal septal deviation, but without a nasal septal spur. There is patency of the bilateral nasal airways. The visualized osseous structures are normal. The visualized bilateral orbital contents are normal. CT/Sinus/Facial Bone IMPRESSION: Mucosal thickening of both maxillary sinuses. Nasal septum deviation to the left side of the midline. Electronically Signed: Wilfred Milligan, at 13:40 EST , Service support ,
== END ==
PROVIDERS: Family Provider Family Medicine; PCP Family Medicine; Referring Provider Family Medicine; Visit Provider Family Medicine
DX: J32.9 Chronic sinusitis, unspecified (principal)
CPT/HCPCS: 70486

== ENCOUNTER → 2019-09-19 11:55 | Outpatient (CLI) | payer MEDICARE, OTHER, SELFPAY ==
[2019-09-19 14:15] LABS: Absolute Neutrophil Count 6.7 X10^3/uL (2.0-7.7); Basophil# 0.05 X10^3/uL; Basophil% 0.6 % (0-1); Eosinophil# 0.16 X10^3/uL; Eosinophils% 1.8 % (0-5); Hematocrit 39.8 % (40-54); Hemoglobin 13.7 g/dL (13.0-16.5); Lymphocyte % 13.3 % (19-41); Mean Corp Hgb Conc 34.4 g/dL (32-36); Mean Corpuscular Hgb 35.8 pg (27.0-32.0); Mean Corpuscular Volume 103.9 fL (80-94); Mean Platelet Vol. 10.6 fl (6.2-12.0); Monocyte# 0.87 X10^3/uL; Monocyte% 9.6 % (0-10); NRBC Flagged by Analyzer 0 % (0-5); Neutrophil # 6.74 X10^3/uL (2.7-7.7); Neutrophil % 74.4 % (47-70); Platelet Count 274 K/mm3 (150-450); RBC Distribution Width CV 14.8 % (11.6-14.6); RBC Distribution Width SD 57.1 fl (35.1-43.9); Red Blood Count 3.83 M/mm3 (4.6-6.2); White Blood Count 9.1 K/mm3 (4.4-11.0)
[2019-09-19 14:20] LABS: International Normalized Ratio 1.9
[2019-09-19 14:35] LABS: ALB/GLOB Ratio 1.1 RATIO (0.9-2.4); AST(SGOT) 17 U/L (15-37); Alanine Aminotransfer ALT/SGPT 19 U/L (16-61); Albumin, Serum 3.9 g/dL (3.2-5.0); Alkaline Phosphatase 74 U/L (45-117); Anion Gap 4 (5-15); BUN 33 mg/dL (7-18); BUN/Creat Ratio 23.7 RATIO (10-20); Calcium,Total 8.8 mg/dL (8.5-10.1); Chloride 108 mmol/L (98-107); Creatinine, Serum 1.39 mg/dL (0.70-1.30); EST Glomerular Filtration Rate 53 mL/min (>60); Est Glom Filt Rate - Afr Amer 64 mL/min (>60); Globulin 3.7 g/dL (2.2-4.2); Glucose 67 mg/dL (74-106); PSA,Total- Diagnostic 2.88 ng/mL (0.0-4.0); Potassium 3.6 mmol/L (3.5-5.1); Protein, Total 7.6 g/dL (6.4-8.2); Sodium Level 141 mmol/L (136-145)
== END ==
PROVIDERS: PCP Family Medicine; Referring Provider Family Medicine; Visit Provider Family Medicine
DX: N40.0 Benign prostatic hyperplasia without lower urinary tract symptoms (principal); Z79.01 Long term (current) use of anticoagulants
CPT/HCPCS: 36415; 80053; 84153; 85025; 85610

== ENCOUNTER 2019-10-30 18:00 | Emergency (ER) | payer MEDICARE, OTHER, SELFPAY ==
[2019-09-24 11:41] VITALS: BMI 23.6
[2019-10-30 18:01] VITALS: BP 135/85; PULSE 84; RESP 16; TEMP 36.3; O2SAT 97; BMI 23.6
--- NOTE | 2019-10-30 18:06 | EKG12_ITS ---
Test Reason : CP/PALPITATIONS Blood Pressure : / mmHG Vent. Rate : 082 BPM Atrial Rate : 082 BPM P-R Int : 202 ms QRS Dur : 096 ms QT Int : 394 ms P-R-T Axes : 091 -12 015 degrees QTc Int : 460 ms Sinus rhythm with occasional Premature ventricular complexes and Premature atrial complexes RSR' or QR pattern in V1 suggests right ventricular conduction delay Left ventricular hypertrophy with repolarization abnormality Abnormal ECG Confirmed by FELIPE LÓPEZ ([id number]), editor at large CHET PASTOR ([id number]) on 10/31/2019 2:24:44 PM Referred By: EUGENIA/LORIE Confirmed By:FELIPE LÓPEZ
[2019-10-30 18:07] VITALS: O2SAT 100
[2019-10-30 18:21] LABS: Absolute Lymphocyte Count 1.43 X10^3/uL (0.83-4.51); Absolute Neutrophil Count 7.5 X10^3/uL (2.0-7.7); Basophil# 0.04 X10^3/uL; Basophil% 0.4 % (0-1); Hematocrit 38.9 % (40-54); Hemoglobin 13.8 g/dL (13.0-16.5); Lymphocyte # 1.43 X10^3/ul (4.0); Lymphocyte % 14.5 % (19-41); Mean Corp Hgb Conc 35.5 g/dL (32-36); Mean Corpuscular Hgb 36.7 pg (27.0-32.0); Mean Corpuscular Volume 103.5 fL (80-94); Monocyte# 0.77 X10^3/uL; Monocyte% 7.8 % (0-10); NRBC Flagged by Analyzer 0 % (0-5); Neutrophil # 7.45 X10^3/uL (2.7-7.7); Neutrophil % 75.9 % (47-70); Platelet Count 266 K/mm3 (150-450); RBC Distribution Width CV 14.9 % (11.6-14.6); RBC Distribution Width SD 56.1 fl (35.1-43.9); Red Blood Count 3.76 M/mm3 (4.6-6.2); White Blood Count 9.8 K/mm3 (4.4-11.0)
--- NOTE | 2019-10-30 18:35 | RAD_ITS ---
STUDY: X-RAY CHEST REASON FOR EXAM: Male, 79 years old. Chest pain TECHNIQUE: Frontal and lateral views of the chest COMPARISON: 08/02/2019 FINDINGS: The lungs are clear. There are no pleural effusions. There is no pneumothorax. The heart is stable in size. There is vertebroplasty cement again noted. RAD/Chest PA and Lateral IMPRESSION: No acute thoracic pathology. Electronically Signed: Kings Mahoney, at 19:00 EST Tel , Service support ,
[2019-10-30 18:40] LABS: Anion Gap 6 (5-15); BUN 21 mg/dL (7-18); BUN/Creat Ratio 13.9 RATIO (10-20); Calcium,Total 9.1 mg/dL (8.5-10.1); Chloride 106 mmol/L (98-107); Creatinine, Serum 1.51 mg/dL (0.70-1.30); EST Glomerular Filtration Rate 48 mL/min (>60); Est Glom Filt Rate - Afr Amer 58 mL/min (>60); Estimated Creatinine Clearance 39.01 ml/min; Glucose 142 mg/dL (74-106); Sodium Level 140 mmol/L (136-145)
[2019-10-30 19:09] LABS: International Normalized Ratio 2.5; Prothrombin Time (Protime)PT. 26.8 SECONDS (11.7-14.9)
[2019-10-30] MEDS: proMETHazine 25 MG Tablet 12.5 MG PO (19:33)
[2019-10-30] MEDS: 0.9% Normal Saline 1,000 ML 150 ML IV (19:36)
[2019-10-30 19:37] VITALS: BP 149/86; PULSE 59; RESP 12; O2SAT 94
[2019-10-30 20:34] VITALS: BP 150/91; PULSE 57; RESP 16; O2SAT 96
--- NOTE | 2019-10-30 20:35 | ED.VIS.GEN ---
History of Present Illness Chief Complaint: Palpitations Informant: Patient Onset: Yesterday Current Severity: Mild Maximum Severity: Moderate Narrative: Patient presents with palpitations that started over the past week, worse last night. He states when he notices this he feels slightly dizzy and short of breath. He reports some mild chest pressure. He states he checked his heart rate and the fastest he was able to measure it was 98 bpm. Patient did take metoprolol prior to arrival and states symptoms are currently improving. He is currently on Coumadin for history of paroxysmal A. fib. He does have history of cardiac disease with one cardiac stent. 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 Molina Surgical History: angioplasty, - - cardiversion, 3 hernia operations, back surgey 3 times hemorrhoid surgery. Smoking Status: Never smoker - Family History Paternal Family History: Family History (Last Reviewed 05/17/19 @ 14:[address] Tremaine Molina MD) Father Cancer Mother Hypertension Sister Hypertension Family History: Reports: - - prostate cancer Maternal Family History: Family History (Last Reviewed 05/17/19 @ 14:[address] Tremaine Molina MD) Father Cancer Mother Hypertension Sister Hypertension Family History: Reports: Heart Disease, - - Study of cardiac disease in his maternal side Review of Systems General: Denies: Chills, Fever Eyes: Denies: Visual changes - bilaterally ENT: Denies: Bilateral ear pain Cardiovascular: Reports: Chest pain, Palpitations Respiratory: Reports: Dyspnea. Denies: Cough, Sputum Gastrointestinal: Denies: Abdominal pain, Nausea, Vomiting, Diarrhea Musculoskeletal: Denies: Extremity Pain Skin: Denies: Rash Neurological: Denies: Headache Hematologic: Denies: Easy bruising Allergy: Denies: Uticaria Physical Exam Vital Signs/Narrative: Vital Signs Temp Pulse Resp BP Pulse Ox 10/30/19 20:34 57 L 16 150/91 H 96 10/30/19 19:37 59 L 12 149/86 H 94 10/30/19 18:07 100 10/30/19 18:01 97.4 F L 84 16 135/85 H 97 Inital Vital Signs reviewed: Yes General: Well nourished, Well developed Head: Normocephalic ENT: Moist mucous membranes Neck: Supple Cardiovascular: Regular rate, Regular rhythm Respiratory: No distress, CTA bilaterally Abdomen: Soft, Nontender Extremities: Nontender Skin: Normal color Neurological: Alert, Oriented x3 Psychological: Normal affect Diagnostic/Tx/Re-eval Impressions Chest X-Ray 10/30/19 18:35 IMPRESSION: No acute thoracic pathology. Electronically Signed: Kings Denzel, at 19:00 EST Tel , Service support , 10/30/19 18:35 Chest PA and Lateral [RAD] Stat Laboratory Results 10/30/19 10/30/19 10/30/19 18:15 18:15 18:15 WBC 9.8 RBC 3.76 L Hgb 13.8 Hct 38.9 L MCV 103.5 H MCH 36.7 H MCHC 35.5 RDW Std Deviation 56.1 H RDW Coeff of Pablo 14.9 H Plt Count 266 MPV 10.0 Immature Gran % (Auto) 0.400 Neut % (Auto) 75.9 H Lymph % (Auto) 14.5 L Meigs % (Auto) 7.8 Eos % (Auto) 1.0 Baso % (Auto) 0.4 Absolute Neuts (auto) 7.5 Absolute Lymphs (auto) 1.43 Nucleated RBC % 0 PT 26.8 H INR 2.5 Sodium 140 Potassium 3.0 L Chloride 106 Carbon Dioxide 28.0 Anion Gap 6 BUN 21 H Creatinine 1.51 H Estim Creat Clear Calc 39.01 Est GFR (MDRD) Af Amer 58 L Est GFR (MDRD) Non-Af 48 L BUN/Creatinine Ratio 13.9 Glucose 142 H Calcium 9.1 Troponin I < 0.015 - EKG Initial EKG Interpretation: Sinus Rhythm - Sinus 82 with occasional PVCs. Minimal ST depression noted in the lateral precordial leads. - Medical Decision Making Patient was given IV fluids. He was given a dose of Phenergan for slight nausea. He was given oral potassium replacement. On repeat evaluation he is resting comfortably. PVCs have decreased. Patient reports feeling improved. Patient has had symptoms for greater than 12 hours with a normal troponin. I believe the palpitations may be secondary to his hypokalemia. Patient is currently on potassium replacement at home. He takes potassium 3 times daily. I spoke with the patient's primary care physician, Dr. César Chinchilla. I asked the patient to increase this to 4 times a day this week and be seen later this week for repeat labs. Patient is in agreement with this plan. ED Disposition - Plan for ED Patient: Disposition: Home or Assisted Living Diagnosis: Palpitations, Hypokalemia Instructions: Hypokalemia, Palpitations Referrals: César Chinchilla MD [Primary Care Provider] - 3-5 Days
[2019-10-30 20:43] VITALS: BP 150/91; PULSE 59; RESP 17; O2SAT 97
== END 2019-10-30 20:44 | disposition home or self-care (01) ==
PROVIDERS: Emergency Provider Emergency Medicine; PCP Family Medicine
DX: R00.2 Palpitations (principal); E87.6 Hypokalemia; R07.89 Other chest pain; I49.3 Ventricular premature depolarization; I11.9 Hypertensive heart disease without heart failure; E78.5 Hyperlipidemia, unspecified; I25.2 Old myocardial infarction; I48.0 Paroxysmal atrial fibrillation; Z95.5 Presence of coronary angioplasty implant and graft; Z79.01 Long term (current) use of anticoagulants; Z79.82 Long term (current) use of aspirin; Z79.899 Other long term (current) drug therapy
CPT/HCPCS: 71046; 80048; 84484; 85025; 85610; 93005; 96360; 99285; A4216

== ENCOUNTER → 2019-11-02 08:27 | Outpatient (CLI) | payer MEDICARE, OTHER, SELFPAY ==
[2019-10-30 18:01] VITALS: BMI 23.6
[2019-11-02 11:10] LABS: Anion Gap 6 (5-15); BUN 27 mg/dL (7-18); BUN/Creat Ratio 15.3 RATIO (10-20); Calcium,Total 8.9 mg/dL (8.5-10.1); Chloride 108 mmol/L (98-107); Creatinine, Serum 1.77 mg/dL (0.70-1.30); EST Glomerular Filtration Rate 40 mL/min (>60); Est Glom Filt Rate - Afr Amer 48 mL/min (>60); Glucose 112 mg/dL (74-106); Potassium 4.4 mmol/L (3.5-5.1); Sodium Level 139 mmol/L (136-145)
== END ==
PROVIDERS: PCP Family Medicine; Referring Provider Family Medicine; Visit Provider Family Medicine
DX: E87.6 Hypokalemia (principal)
CPT/HCPCS: 36415; 80048

== ENCOUNTER → 2019-12-24 11:33 | Outpatient (CLI) | payer MEDICARE, OTHER, SELFPAY ==
[2019-11-13 10:45] VITALS: BMI 23.6
--- NOTE | 2019-12-24 11:37 | RAD_ITS ---
STUDY: X-RAY - RIGHT HAND REASON FOR EXAM: Male, 79 years old. PAIN AFTER FALLING TECHNIQUE: 3 view(s) of the hand. COMPARISON: None. FINDINGS: Normal radiocarpal articulation. Normal distal radioulnar joint. Findings suggestive of a avulsion fracture of the triquetrum. Normal carpal articulations Normal carpometacarpal articulation of the thumb. Normal second through fifth carpometacarpal joints. Normal metacarpi. Normal metacarpophalangeal joint of the thumb. Normal interphalangeal joint of the thumb. Normal proximal and distal phalanges of the thumb. Normal metacarpophalangeal joints of the second through fifth fingers. Normal proximal and distal interphalangeal joints of the second through fifth fingers. Normal phalanges of the second through fifth fingers. Soft tissue swelling. RAD/Hand Min 3 Views IMPRESSION: Findings suggestive of an avulsion fracture of the triquetrum. Mild degree of soft tissue swelling. Electronically Signed: Wilfred Milligan, at 13:02 EDT , Service support ,
--- NOTE | 2019-12-24 11:37 | RAD_ITS ---
STUDY: X-RAY - RIGHT FOOT CLINICAL: Male, 79 years old. PAIN FOLLOWING INJURY TECHNIQUE: 3 view(s) of the foot. COMPARISON: None. FINDINGS: There is a small plantar calcaneal spur. Normal visualized subtalar, talonavicular, calcaneocuboid, tarsal and tarsometatarsal articulations. Normal metatarsi. There is marked degree of degenerative arthrosis of the metatarsophalangeal joint of the hallux . Normal tibial and fibular sesamoid bones. Normal interphalangeal joint of the great toe. Normal phalanges of the great toe. Normal second through fifth metatarsophalangeal joints. Normal interphalangeal joints and phalanges of the lesser toes. The soft tissue structures are unremarkable. RAD/Foot min 3 Views IMPRESSION: Marked degree of degenerative arthrosis at the first metatarsal-phalangeal joint. Electronically Signed: Wilfred Milligan, at 12:48 EDT , Service support ,
[2019-12-24 15:21] LABS: Anion Gap 4 (5-15); BUN 65 mg/dL (7-18); Calcium,Total 8.8 mg/dL (8.5-10.1); Chloride 107 mmol/L (98-107); Creatinine, Serum 2.82 mg/dL (0.70-1.30); EST Glomerular Filtration Rate 23 mL/min (>60); Est Glom Filt Rate - Afr Amer 28 mL/min (>60); Glucose 88 mg/dL (74-106); Magnesium 2.7 mg/dL (1.6-2.6); Potassium 5.4 mmol/L (3.5-5.1); Sodium Level 137 mmol/L (136-145)
== END ==
PROVIDERS: PCP Family Medicine; Referring Provider Family Medicine; Visit Provider Family Medicine
DX: S99.921A Unspecified injury of right foot, initial encounter (principal); S69.91XA Unspecified injury of right wrist, hand and finger(s), initial encounter; E87.6 Hypokalemia
CPT/HCPCS: 36415; 73130; 73630; 80048; 83735

== ENCOUNTER → 2019-12-28 10:28 | Outpatient (CLI) | payer MEDICARE, OTHER, SELFPAY ==
[2019-11-13 10:45] VITALS: BMI 23.6
[2019-12-28 12:54] LABS: International Normalized Ratio 2.2; Prothrombin Time (Protime)PT. 23.9 SECONDS (11.7-14.9)
[2019-12-28 13:00] LABS: Albumin, Serum 3.5 g/dL (3.2-5.0); BUN 45 mg/dL (7-18); BUN/Creat Ratio 20.4 RATIO (10-20); Calcium,Total 8.3 mg/dL (8.5-10.1); Chloride 106 mmol/L (98-107); Creatinine, Serum 2.21 mg/dL (0.70-1.30); EST Glomerular Filtration Rate 31 mL/min (>60); Est Glom Filt Rate - Afr Amer 37 mL/min (>60); Glucose 101 mg/dL (74-106); Magnesium 2.6 mg/dL (1.6-2.6); Phosphorus 2.8 mg/dL (2.5-4.9); Potassium 4.5 mmol/L (3.5-5.1); Sodium Level 136 mmol/L (136-145)
== END ==
PROVIDERS: Internal Medicine Cardiovascular Disease; PCP Family Medicine; Visit Provider Family Medicine
DX: N28.9 Disorder of kidney and ureter, unspecified (principal)
CPT/HCPCS: 36415; 80069; 83735; 85610

== ENCOUNTER → 2020-01-11 13:58 | Outpatient (CLI) | payer MEDICARE, OTHER, SELFPAY ==
[2019-11-13 10:45] VITALS: BMI 23.6
[2020-01-11 16:29] LABS: Anion Gap 7 (5-15); BUN 43 mg/dL (7-18); BUN/Creat Ratio 19.5 RATIO (10-20); Calcium,Total 8.7 mg/dL (8.5-10.1); Chloride 104 mmol/L (98-107); EST Glomerular Filtration Rate 31 mL/min (>60); Est Glom Filt Rate - Afr Amer 37 mL/min (>60); Glucose 67 mg/dL (74-106); Potassium 4.8 mmol/L (3.5-5.1); Sodium Level 137 mmol/L (136-145)
== END ==
PROVIDERS: PCP Family Medicine; Referring Provider Family Medicine; Visit Provider Family Medicine
DX: E87.6 Hypokalemia (principal)
CPT/HCPCS: 36415; 80048

== ENCOUNTER → 2020-02-06 10:56 | Outpatient (CLI) | payer MEDICARE, OTHER, SELFPAY ==
[2019-11-13 10:45] VITALS: BMI 23.6
[2020-02-06 12:37] LABS: Anion Gap 8 (5-15); BUN 62 mg/dL (7-18); BUN/Creat Ratio 22.3 RATIO (10-20); Calcium,Total 8.7 mg/dL (8.5-10.1); Chloride 108 mmol/L (98-107); Creatinine, Serum 2.78 mg/dL (0.70-1.30); EST Glomerular Filtration Rate 24 mL/min (>60); Est Glom Filt Rate - Afr Amer 29 mL/min (>60); Glucose 83 mg/dL (74-106); Magnesium 2.4 mg/dL (1.6-2.6); Sodium Level 139 mmol/L (136-145)
[2020-02-06 12:45] LABS: Prothrombin Time (Protime)PT. 58.1 SECONDS (11.7-14.9)
[2020-02-06 13:36] LABS: International Normalized Ratio 6.6
== END ==
PROVIDERS: PCP Family Medicine; Visit Provider Family Medicine
DX: I48.91 Unspecified atrial fibrillation (principal); N18.3 Chronic kidney disease, stage 3 (moderate)
CPT/HCPCS: 36415; 80048; 83735; 85610

== ENCOUNTER → 2020-02-11 11:07 | Outpatient (CLI) | payer MEDICARE, OTHER, SELFPAY ==
[2019-11-13 10:45] VITALS: BMI 23.6
[2020-02-11 12:53] LABS: International Normalized Ratio 2.1; Prothrombin Time (Protime)PT. 22.6 SECONDS (11.7-14.9)
[2020-02-11 12:58] LABS: Anion Gap 5 (5-15); BUN 38 mg/dL (7-18); Calcium,Total 8.6 mg/dL (8.5-10.1); Chloride 108 mmol/L (98-107); Creatinine, Serum 2.11 mg/dL (0.70-1.30); EST Glomerular Filtration Rate 32 mL/min (>60); Est Glom Filt Rate - Afr Amer 39 mL/min (>60); Glucose 94 mg/dL (74-106); Potassium 4.3 mmol/L (3.5-5.1); Sodium Level 140 mmol/L (136-145)
== END ==
PROVIDERS: PCP Family Medicine; Visit Provider Family Medicine
DX: I48.91 Unspecified atrial fibrillation (principal); N18.3 Chronic kidney disease, stage 3 (moderate)
CPT/HCPCS: 36415; 80048; 85610

== ENCOUNTER → 2020-02-15 10:38 | Outpatient (CLI) | payer MEDICARE, OTHER, SELFPAY ==
[2019-11-13 10:45] VITALS: BMI 23.6
[2020-02-15 12:22] LABS: International Normalized Ratio 2.3; Prothrombin Time (Protime)PT. 24.8 SECONDS (11.7-14.9)
== END ==
PROVIDERS: PCP Family Medicine; Visit Provider Family Medicine
DX: Z79.01 Long term (current) use of anticoagulants (principal)
CPT/HCPCS: 36415; 85610

== ENCOUNTER → 2020-02-18 13:37 | Outpatient (CLI) | payer MEDICARE, OTHER, SELFPAY ==
[2019-11-13 10:45] VITALS: BMI 23.6
[2020-02-18 16:25] LABS: International Normalized Ratio 3.1; Prothrombin Time (Protime)PT. 31.9 SECONDS (11.7-14.9)
== END ==
PROVIDERS: PCP Family Medicine; Visit Provider Family Medicine
DX: Z79.01 Long term (current) use of anticoagulants (principal)
CPT/HCPCS: 36415; 85610

== ENCOUNTER → 2020-02-21 09:22 | Outpatient (CLI) | payer MEDICARE, OTHER, SELFPAY ==
[2019-11-13 10:45] VITALS: BMI 23.6
[2020-02-21 10:31] LABS: Prothrombin Time (Protime)PT. 36.4 SECONDS (11.7-14.9)
[2020-02-21 10:37] LABS: International Normalized Ratio 3.7
== END ==
PROVIDERS: PCP Family Medicine; Visit Provider Family Medicine
DX: Z79.01 Long term (current) use of anticoagulants (principal)
CPT/HCPCS: 36415; 85610

== ENCOUNTER → 2020-02-26 13:40 | Outpatient (CLI) | payer MEDICARE, OTHER, SELFPAY ==
[2019-11-13 10:45] VITALS: BMI 23.6
[2020-02-26 15:38] LABS: Absolute Lymphocyte Count 0.97 X10^3/uL (0.83-4.51); Absolute Neutrophil Count 7.3 X10^3/uL (2.0-7.7); Basophil# 0.04 X10^3/uL; Basophil% 0.4 % (0-1); Eosinophil# 0.04 X10^3/uL; Eosinophils% 0.4 % (0-5); Hematocrit 34.1 % (40-54); Hemoglobin 11.3 g/dL (13.0-16.5); Lymphocyte # 0.97 X10^3/ul (4.0); Lymphocyte % 10.7 % (19-41); Mean Corp Hgb Conc 33.1 g/dL (32-36); Mean Corpuscular Hgb 37.3 pg (27.0-32.0); Mean Corpuscular Volume 112.5 fL (80-94); Mean Platelet Vol. 10.3 fl (6.2-12.0); Monocyte# 0.71 X10^3/uL; Monocyte% 7.8 % (0-10); NRBC Flagged by Analyzer 0 % (0-5); Neutrophil # 7.25 X10^3/uL (2.7-7.7); Platelet Count 308 K/mm3 (150-450); RBC Distribution Width SD 62.7 fl (35.1-43.9); Red Blood Count 3.03 M/mm3 (4.6-6.2); White Blood Count 9.1 K/mm3 (4.4-11.0)
[2020-02-26 15:52] LABS: Prothrombin Time (Protime)PT. 39.3 SECONDS (11.7-14.9)
[2020-02-26 16:04] LABS: ALB/GLOB Ratio 0.9 RATIO (0.9-2.4); AST(SGOT) 19 U/L (15-37); Alanine Aminotransfer ALT/SGPT 22 U/L (16-61); Albumin, Serum 3.5 g/dL (3.2-5.0); Alkaline Phosphatase 64 U/L (45-117); Anion Gap 7 (5-15); BUN 50 mg/dL (7-18); BUN/Creat Ratio 21.9 RATIO (10-20); Calcium,Total 8.3 mg/dL (8.5-10.1); Chloride 104 mmol/L (98-107); Creatinine, Serum 2.28 mg/dL (0.70-1.30); EST Glomerular Filtration Rate 30 mL/min (>60); Est Glom Filt Rate - Afr Amer 36 mL/min (>60); Glucose 97 mg/dL (74-106); Magnesium 2.2 mg/dL (1.6-2.6); Potassium 3.8 mmol/L (3.5-5.1); Protein, Total 7.5 g/dL (6.4-8.2); Sodium Level 138 mmol/L (136-145); Thyroid Stim Hormone (TSH) 4.36 uIU/mL (0.358-3.74)
[2020-02-26 17:32] LABS: International Normalized Ratio 4.1
== END ==
PROVIDERS: PCP Family Medicine; Visit Provider Internal Medicine Cardiovascular Disease
DX: I10 Essential (primary) hypertension (principal); E87.6 Hypokalemia; Z79.01 Long term (current) use of anticoagulants
CPT/HCPCS: 36415; 80053; 83735; 84443; 85025; 85610

== ENCOUNTER → 2020-03-03 10:42 | Outpatient (CLI) | payer MEDICARE, OTHER, SELFPAY ==
[2019-11-13 10:45] VITALS: BMI 23.6
[2020-03-03 12:58] LABS: Prothrombin Time (Protime)PT. 37.8 SECONDS (11.7-14.9)
[2020-03-03 13:04] LABS: International Normalized Ratio 3.9
== END ==
PROVIDERS: PCP Family Medicine; Visit Provider Family Medicine
DX: Z79.01 Long term (current) use of anticoagulants (principal)
CPT/HCPCS: 36415; 85610

== ENCOUNTER → 2020-03-06 11:26 | Outpatient (CLI) | payer MEDICARE, OTHER, SELFPAY ==
[2019-11-13 10:45] VITALS: BMI 23.6
[2020-03-06 13:20] LABS: Prothrombin Time (Protime)PT. 39.2 SECONDS (11.7-14.9)
[2020-03-06 13:37] LABS: International Normalized Ratio 4.1
== END ==
PROVIDERS: PCP Family Medicine; Referring Provider Family Medicine; Visit Provider Family Medicine
DX: Z79.01 Long term (current) use of anticoagulants (principal)
CPT/HCPCS: 36415; 85610

== ENCOUNTER → 2020-03-24 15:41 | Outpatient (CLI) | payer MEDICARE, OTHER, SELFPAY ==
[2019-11-13 10:45] VITALS: BMI 23.6
[2020-03-24 18:09] LABS: International Normalized Ratio 2.3; Prothrombin Time (Protime)PT. 24.6 SECONDS (11.7-14.9)
[2020-03-24 18:15] LABS: ALB/GLOB Ratio 0.9 RATIO (0.9-2.4); AST(SGOT) 22 U/L (15-37); Alanine Aminotransfer ALT/SGPT 27 U/L (16-61); Albumin, Serum 3.7 g/dL (3.2-5.0); Alkaline Phosphatase 77 U/L (45-117); Anion Gap 4 (5-15); BUN 58 mg/dL (7-18); BUN/Creat Ratio 21.6 RATIO (10-20); Calcium,Total 9.1 mg/dL (8.5-10.1); Chloride 108 mmol/L (98-107); Creatinine, Serum 2.69 mg/dL (0.70-1.30); EST Glomerular Filtration Rate 25 mL/min (>60); Est Glom Filt Rate - Afr Amer 30 mL/min (>60); Globulin 4.3 g/dL (2.2-4.2); Glucose 96 mg/dL (74-106); Magnesium 2.4 mg/dL (1.6-2.6); Potassium 5.1 mmol/L (3.5-5.1); Sodium Level 136 mmol/L (136-145)
== END ==
PROVIDERS: PCP Family Medicine; Referring Provider Family Medicine; Visit Provider Family Medicine
DX: N28.9 Disorder of kidney and ureter, unspecified (principal); Z79.01 Long term (current) use of anticoagulants
CPT/HCPCS: 36415; 80053; 83735; 85610

== ENCOUNTER → 2020-04-16 13:54 | Outpatient (CLI) | payer MEDICARE, OTHER, SELFPAY ==
[2019-11-13 10:45] VITALS: BMI 23.6
[2020-04-16 16:02] LABS: International Normalized Ratio 2.1
[2020-04-16 17:26] LABS: Anion Gap 5 (5-15); BUN 38 mg/dL (7-18); BUN/Creat Ratio 18.5 RATIO (10-20); Calcium,Total 8.6 mg/dL (8.5-10.1); Chloride 110 mmol/L (98-107); Creatinine, Serum 2.05 mg/dL (0.70-1.30); EST Glomerular Filtration Rate 34 mL/min (>60); Est Glom Filt Rate - Afr Amer 41 mL/min (>60); Glucose 79 mg/dL (74-106); Potassium 4.6 mmol/L (3.5-5.1); Sodium Level 140 mmol/L (136-145)
== END ==
PROVIDERS: PCP Family Medicine; Referring Provider Family Medicine; Visit Provider Family Medicine
DX: Z79.01 Long term (current) use of anticoagulants (principal)
CPT/HCPCS: 36415; 80048; 85610

== ENCOUNTER → 2020-04-23 08:16 | Outpatient (CLI) | payer MEDICARE, OTHER, SELFPAY ==
[2019-11-13 10:45] VITALS: BMI 23.6
--- NOTE | 2020-04-23 08:18 | US_ITS ---
STUDY: RENAL ULTRASOUND - COMPLETE REASON FOR EXAM: Male, 79 years old. CKD -- URINARY RETENTION TECHNIQUE: Ultrasound evaluation of the kidneys was performed with real-time and static chan-scale imaging. COMPARISON: Comparison is made with prior examination dated 05/13/2014. FINDINGS: RIGHT KIDNEY: Normal location of the right kidney, which is normal in size. The right kidney measures 11.1 cm x 7.1 cm x 5.1 cm. There is a normal cortex of the right kidney. The renal cortex measures 1.1 cm. Multiple cysts are seen. The largest cyst measures 2.7 cm x 2.9 cm x 2.9 cm. There are no right renal calculi. There is no right hydronephrosis. DISTAL RIGHT URETER: There is non-visualization of the distal right ureter. There is no demonstrated right ureterovesical junction calculus. There is a visualized right ureteral jet. LEFT KIDNEY: Normal location of the left kidney, which is normal in size. The left kidney measures 12 cm x 6.0 cm x 6.0 cm. There is a normal cortex of the left kidney. The renal cortex measures 1.0 cm. Multiple cysts are seen. The largest measures 2.4 cm x 2.5 cm x 1.8 cm There are no left renal calculi. There is no left hydronephrosis. DISTAL LEFT URETER: There is non-visualization of the distal left ureter. There is no demonstrated left ureterovesical junction calculus. There is a visualized left ureteral jet. BLADDER: The distended urinary bladder has a volume of 19 ml. There is a normal wall thickness of the distended urinary bladder. There is no demonstrated mass within the urinary bladder. There are no demonstrated bladder calculi. US/Kidney and Bladder IMPRESSION: Multiple bilateral renal cysts. Electronically Signed: Wilfred Milligan, at 13:28 EDT , Service support ,
== END ==
PROVIDERS: PCP Family Medicine; Referring Provider Family Medicine; Visit Provider Family Medicine
DX: N18.3 Chronic kidney disease, stage 3 (moderate) (principal)
CPT/HCPCS: 76770

== ENCOUNTER → 2020-06-11 11:24 | Outpatient (CLI) | payer MEDICARE, OTHER, SELFPAY ==
[2019-11-13 10:45] VITALS: BMI 23.6
[2020-06-11 13:00] LABS: AST(SGOT) 25 U/L (15-37); Alanine Aminotransfer ALT/SGPT 31 U/L (16-61); Albumin, Serum 3.7 g/dL (3.2-5.0); Alkaline Phosphatase 70 U/L (45-117); Bilirubin, Direct 0.25 mg/dL (0.00-0.30); Cholesterol 126 mg/dL (200); Globulin 4.3 g/dL (2.2-4.2); High Density Lipoprotein 51 mg/dL; Triglycerides 116 mg/dL; Very Low Density Lipoprotein 23 mg/dL (5-40)
== END ==
PROVIDERS: PCP Family Medicine; Referring Provider Family Medicine; Visit Provider Physician Assistant Medical
DX: E78.00 Pure hypercholesterolemia, unspecified (principal); E78.5 Hyperlipidemia, unspecified
CPT/HCPCS: 36415; 80061; 80076

== ENCOUNTER → 2020-06-24 11:00 | Outpatient (CLI) | payer MEDICARE, OTHER, SELFPAY ==
[2019-11-13 10:45] VITALS: BMI 23.6
[2020-06-24 18:32] LABS: Color, Urine Yellow (Yellow); Glucose, Dipstick Normal (Normal); Ketone-Dipstick Negative (Negative); Leukocyte Esterase-Dipstick 25 /ul (Negative); Nitrite-Dipstick Negative (Negative); Occult Blood-Urine Negative /ul (Negative); Protein-Dipstick Negative (Negative); Urine Bilirubin Dipstick Negative (Negative); Urine Clarity Clear (Clear); Urine Urobilinogen Normal (Normal)
[2020-06-25 16:08] LABS: Immunoglobulin A 365 mg/dL (61-437); Immunoglobulin G 1343 mg/dL (603-1613); PROEL- A/G Ratio 1.2 (0.7-1.7); PROEL- Albumin 3.7 g/dL (2.9-4.4); PROEL- Alpha-1 Globulin 0.2 g/dL (0.0-0.4); PROEL- Alpha-2 Globulin 0.8 g/dL (0.4-1.0); PROEL- Beta Globulin 0.9 g/dL (0.7-1.3); PROEL- Gamma Globulin 1.3 g/dL (0.4-1.8); PROEL- Globulin, Total 3.2 g/dL (2.2-3.9); PROEL- TOTAL PROTEIN 6.9 g/dL (6.0-8.5)
[2020-06-26 08:46] LABS: Immunoglobulin M 98 mg/dL (15-143)
== END ==
PROVIDERS: PCP Family Medicine; Referring Provider Family Medicine; Visit Provider Internal Medicine Nephrology
DX: N18.30 Chronic kidney disease, stage 3 unspecified (principal)
CPT/HCPCS: 36415; 81002; 82784; 84165; 86334

== ENCOUNTER 2020-07-20 14:07 | Emergency (ER) | payer MEDICARE, OTHER, SELFPAY ==
[2019-11-13 10:45] VITALS: BMI 23.6
[2020-07-20 14:07] VITALS: BP 178/94; PULSE 63; RESP 18; TEMP 35.9; O2SAT 98; BMI 23.6
[2020-07-20 14:18] VITALS: BP 184/92; PULSE 60; RESP 19; O2SAT 98
--- NOTE | 2020-07-20 14:32 | RAD_ITS ---
STUDY: X-RAY CHEST REASON FOR EXAM: Male, 80 years old. chest tightness/burning, HTN, dizziness, headache TECHNIQUE: AP COMPARISON: 10/30/2019 FINDINGS: EKG leads project over the chest. There is a granuloma in the left lung base. There is fibrotic scarring in the right lung base. No airspace consolidation. Normal size heart. Normal mediastinum and nasrin. Normal visualized pulmonary arteries. There is atherosclerotic tortuosity of the aortic arch and descending thoracic aorta. No acute bony process. Prior vertebral augmentation noted. There is no demonstrated abnormality of the visualized soft tissue structures of the upper abdomen. RAD/Chest 1 View (Portable) IMPRESSION: Stable, nonacute portable x-ray examination of the chest. Electronically Signed: Collin Fish MD (Brooks) at 15:08 EST , Service support ,
--- NOTE | 2020-07-20 14:32 | EKG12_ITS ---
Test Reason : CP Blood Pressure : / mmHG Vent. Rate : 061 BPM Atrial Rate : 061 BPM P-R Int : 228 ms QRS Dur : 102 ms QT Int : 460 ms P-R-T Axes : 078 001 009 degrees QTc Int : 463 ms Sinus rhythm with 1st degree A-V block Otherwise normal ECG Confirmed by MARCE KASPER, ADAM ([id number]), editor & co founder CHET PASTOR ([id number]) on 07/23/2020 10:34:18 AM Referred By: LORIE/OPAL Confirmed By:ADAM ZHENG MD
[2020-07-20 14:55] LABS: Absolute Lymphocyte Count 1.04 X10^3/uL (0.83-4.51); Absolute Neutrophil Count 8.1 X10^3/uL (2.0-7.7); Basophil# 0.05 X10^3/uL; Basophil% 0.5 % (0-1); Eosinophil# 0.11 X10^3/uL; Eosinophils% 1.1 % (0-5); Hematocrit 36.4 % (40-54); Hemoglobin 12.3 g/dL (13.0-16.5); Lymphocyte # 1.04 X10^3/ul (4.0); Lymphocyte % 10.2 % (19-41); Mean Corp Hgb Conc 33.8 g/dL (32-36); Mean Corpuscular Hgb 36.7 pg (27.0-32.0); Mean Corpuscular Volume 108.7 fL (80-94); Mean Platelet Vol. 9.9 fl (6.2-12.0); Monocyte# 0.77 X10^3/uL; Monocyte% 7.6 % (0-10); NRBC Flagged by Analyzer 0 % (0-5); Neutrophil # 8.12 X10^3/uL (2.7-7.7); Platelet Count 307 K/mm3 (150-450); RBC Distribution Width CV 14.6 % (11.6-14.6); RBC Distribution Width SD 58.7 fl (35.1-43.9); Red Blood Count 3.35 M/mm3 (4.6-6.2); White Blood Count 10.2 K/mm3 (4.4-11.0)
[2020-07-20 15:10] LABS: AST(SGOT) 29 U/L (15-37); Alanine Aminotransfer ALT/SGPT 45 U/L (16-61); Albumin, Serum 3.4 g/dL (3.2-5.0); Alkaline Phosphatase 71 U/L (45-117); Anion Gap 5 (5-15); BUN 30 mg/dL (7-18); BUN/Creat Ratio 17.2 RATIO (10-20); Bilirubin, Direct 0.28 mg/dL (0.00-0.30); Calcium,Total 8.7 mg/dL (8.5-10.1); Chloride 105 mmol/L (98-107); Creatinine, Serum 1.74 mg/dL (0.70-1.30); EST Glomerular Filtration Rate 40 mL/min (>60); Est Glom Filt Rate - Afr Amer 49 mL/min (>60); Globulin 3.8 g/dL (2.2-4.2); Glucose 114 mg/dL (74-106); Lipase 100 U/L (73-393); Potassium 3.5 mmol/L (3.5-5.1); Protein, Total 7.2 g/dL (6.4-8.2); Sodium Level 139 mmol/L (136-145)
[2020-07-20 15:11] VITALS: BP 179/89; PULSE 57; RESP 18; O2SAT 97
--- NOTE | 2020-07-20 15:35 | ED.DCSUM_ITS ---
History of Present Illness Chief Complaint: Chest Pain Detail of Chief Complaint: High blood pressure, chest pressure, dizzy Informant: Patient Onset: Weeks Current Severity: Mild Maximum Severity: Mild Narrative: Patient present secondary to high blood pressure. He states his blood pressures been running high lately and there have been multiple medication adjustments to try to control this. He states just this past Tuesday his cartia was decreased from 240-120. Patient reports some mild chest pressure. He does report history of coronary disease with 1 prior stent. He had an [place] in 1998. Patient does take Coumadin and amiodarone secondary to paroxysmal A. fib. 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 (5) Old myocardial infarction Status: Chronic (6) Paroxysmal atrial fibrillation Status: Chronic Comment: Pulmonary vein isolation in 2011; DCCV on 06/18/2019; (7) Secondary pulmonary arterial hypertension Status: Chronic (8) History of coronary artery stent placement Status: Resolved Comment: XXW-BYW-Bymu LAD w/ 3.5 x 15 mm S670 08/04/2000 Past Medical History - Allergies and Home Meds Allergies/Adverse Reactions: Allergies prednisone Allergy (Verified 07/20/20 14:08) Rash diclofenac Adverse Reaction (Verified 07/20/20 14:08) rash Primary Care Physician: César Chinchilla MD [Primary Care Provider] - Prior records reviewed: Yes Surgical History: angioplasty, - - cardiversion, 3 hernia operations, back surgey 3 times hemorrhoid surgery. Smoking Status: Never smoker - Family History Paternal Family History: Family History (Last Reviewed 11/13/19 @ 10:44 by Carmel Boyce) Father Cancer Mother Hypertension Sister Hypertension Family History: Reports: - - prostate cancer Maternal Family History: Family History (Last Reviewed 11/13/19 @ 10:44 by Carmel Boyce) Father Cancer Mother Hypertension Sister Hypertension Family History: Reports: Heart Disease, - - Study of cardiac disease in his maternal side Review of Systems General: Denies: Chills, Fever Eyes: Denies: Visual changes - bilaterally ENT: Denies: Bilateral ear pain Cardiovascular: Reports: Chest pain. Denies: Palpitations Respiratory: Denies: Dyspnea, Cough Gastrointestinal: Denies: Abdominal pain, Nausea, Vomiting, Diarrhea Genitourinary: Denies: Dysuria Musculoskeletal: Denies: Swelling, Extremity Pain Skin: Denies: Rash Neurological: Denies: Headache Hematologic: Denies: Easy bruising, Easy bleeding Allergy: Denies: Uticaria Physical Exam Vital Signs/Narrative: Vital Signs Temp Pulse Resp BP Pulse Ox 07/20/20 15:11 57 L 18 179/89 H 97 07/20/20 14:18 60 19 H 184/92 H 98 07/20/20 14:07 96.6 F L 63 18 178/94 H 98 Inital Vital Signs reviewed: Yes General: Well nourished, Well developed Head: Normocephalic ENT: Moist mucous membranes Neck: Supple Cardiovascular: Regular rate, Regular rhythm Respiratory: No distress, CTA bilaterally Abdomen: Soft, Nontender, Normal bowel sounds Extremities: Nontender Skin: Normal color Neurological: Alert, Oriented x3 Psychological: Normal affect Diagnostic/Tx/Re-eval Impressions Chest X-Ray 07/20/20 14:32 IMPRESSION: Stable, nonacute portable x-ray examination of the chest. Electronically Signed: Collin Fish MD (Brooks) at 15:08 EST , Service support , 07/20/20 14:32 Chest 1 View (Portable) [RAD] Stat Laboratory Results 07/20/20 07/20/20 14:35 14:35 WBC 10.2 RBC 3.35 L Hgb 12.3 L Hct 36.4 L MCV 108.7 H MCH 36.7 H MCHC 33.8 RDW Std Deviation 58.7 H RDW Coeff of Pablo 14.6 Plt Count 307 MPV 9.9 Immature Gran % (Auto) 0.600 Neut % (Auto) 80.0 H Lymph % (Auto) 10.2 L Isabella % (Auto) 7.6 Eos % (Auto) 1.1 Baso % (Auto) 0.5 Absolute Neuts (auto) 8.1 H Absolute Lymphs (auto) 1.04 Nucleated RBC % 0 Sodium 139 Potassium 3.5 Chloride 105 Carbon Dioxide 29.0 Anion Gap 5 BUN 30 H Creatinine 1.74 H Estim Creat Clear Calc 33.30 Est GFR (MDRD) Af Amer 49 L Est GFR (MDRD) Non-Af 40 L BUN/Creatinine Ratio 17.2 Glucose 114 H Calcium 8.7 Total Bilirubin 0.80 Direct Bilirubin 0.28 AST 29 ALT 45 Alkaline Phosphatase 71 Troponin I < 0.015 Total Protein 7.2 Albumin 3.4 Globulin 3.8 Lipase 100 - EKG Initial EKG Interpretation: Sinus Rhythm - Sinus at 61 with first-degree AV block. No acute ischemia. 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 Repeat blood pressure is 172/90 with a heart rate of 52. I spoke with the patient's teacher lip reading, Dr. Molina. We will change the patient's cardia from 120 a day to 180. ED Disposition - Plan for ED Patient: Disposition: Home or Assisted Living Diagnosis: Hypertension Instructions: ED Hypertension Established Prescriptions: Diltiazem HCl [Cartia Xt] 180 mg PO DAILY #30 cap.er.24h Transmission Status: Pending to [id number] Referrals: Tremaine Molina MD [STAFF PHYSICIAN] - 1-2 Weeks
[2020-07-20 15:42] LABS: International Normalized Ratio 2.2; Prothrombin Time (Protime)PT. 24.3 SECONDS (11.7-14.9)
[2020-07-20 16:03] VITALS: BP 159/83; PULSE 53; TEMP -6.6; TEMP 20; O2SAT 98
== END 2020-07-20 16:04 | disposition home or self-care (01) ==
PROVIDERS: Emergency Provider Emergency Medicine; PCP Family Medicine
DX: I10 Essential (primary) hypertension (principal); I44.0 Atrioventricular block, first degree; E78.5 Hyperlipidemia, unspecified; I25.2 Old myocardial infarction; I48.0 Paroxysmal atrial fibrillation; I27.21 Secondary pulmonary arterial hypertension; I25.10 Atherosclerotic heart disease of native coronary artery without angina pectoris; Z95.5 Presence of coronary angioplasty implant and graft; Z79.01 Long term (current) use of anticoagulants; Z79.82 Long term (current) use of aspirin; Z79.899 Other long term (current) drug therapy
CPT/HCPCS: 71045; 80048; 80076; 83690; 84484; 85025; 85610; 93005; 99285

== ENCOUNTER → 2020-08-06 14:58 | Outpatient (CLI) | payer MEDICARE, OTHER, SELFPAY ==
[2020-07-29 12:17] VITALS: BMI 24.3
[2020-08-06 18:17] LABS: Anion Gap 7 (5-15); BUN 46 mg/dL (7-18); BUN/Creat Ratio 20.4 RATIO (10-20); Calcium,Total 8.9 mg/dL (8.5-10.1); Chloride 109 mmol/L (98-107); Creatinine, Serum 2.25 mg/dL (0.70-1.30); EST Glomerular Filtration Rate 30 mL/min (>60); Est Glom Filt Rate - Afr Amer 36 mL/min (>60); Glucose 113 mg/dL (74-106); Potassium 4.5 mmol/L (3.5-5.1); Sodium Level 139 mmol/L (136-145)
[2020-08-06 18:28] LABS: International Normalized Ratio 2.1; Prothrombin Time (Protime)PT. 22.8 SECONDS (11.7-14.9)
== END ==
PROVIDERS: PCP Family Medicine; Referring Provider Family Medicine; Visit Provider Internal Medicine Cardiovascular Disease
DX: I10 Essential (primary) hypertension (principal); R53.83 Other fatigue
CPT/HCPCS: 36415; 80048; 85610

== ENCOUNTER → 2020-08-14 12:13 | Outpatient (CLI) | payer MEDICARE, OTHER, SELFPAY ==
[2020-07-29 12:17] VITALS: BMI 24.3
[2020-08-14 16:01] LABS: Albumin, Serum 3.6 g/dL (3.2-5.0); BUN 54 mg/dL (7-18); BUN/Creat Ratio 21.7 RATIO (10-20); Calcium,Total 8.3 mg/dL (8.5-10.1); Chloride 109 mmol/L (98-107); Creatinine, Serum 2.49 mg/dL (0.70-1.30); EST Glomerular Filtration Rate 27 mL/min (>60); Est Glom Filt Rate - Afr Amer 32 mL/min (>60); Glucose 85 mg/dL (74-106); Phosphorus 2.7 mg/dL (2.5-4.9); Potassium 4.6 mmol/L (3.5-5.1); Sodium Level 139 mmol/L (136-145)
== END ==
PROVIDERS: PCP Family Medicine; Referring Provider Family Medicine; Visit Provider Family Medicine
DX: N18.30 Chronic kidney disease, stage 3 unspecified (principal)
CPT/HCPCS: 36415; 80069

== ENCOUNTER → 2020-09-01 16:09 | Outpatient (CLI) | payer MEDICARE, OTHER, SELFPAY ==
[2020-07-29 12:17] VITALS: BMI 24.3
[2020-09-01 17:55] LABS: Protein, Urine (Random) 20.9 mg/dL (<11.9); Protein:Creat Ratio 150 mg/g CRE (0-200)
[2020-09-01 18:03] LABS: International Normalized Ratio 2.7
[2020-09-01 18:05] LABS: Anion Gap 7 (5-15); BUN 38 mg/dL (7-18); BUN/Creat Ratio 20.2 RATIO (10-20); Calcium,Total 8.4 mg/dL (8.5-10.1); Chloride 111 mmol/L (98-107); Creatinine, Serum 1.88 mg/dL (0.70-1.30); EST Glomerular Filtration Rate 37 mL/min (>60); Est Glom Filt Rate - Afr Amer 45 mL/min (>60); Glucose 101 mg/dL (74-106); Potassium 4.2 mmol/L (3.5-5.1); Sodium Level 141 mmol/L (136-145)
== END ==
PROVIDERS: PCP Family Medicine; Visit Provider Internal Medicine Nephrology
DX: N18.32 Chronic kidney disease, stage 3b (principal); Z79.01 Long term (current) use of anticoagulants
CPT/HCPCS: 80048; 82570; 84156; 85610

== ENCOUNTER → 2020-10-22 12:06 | Outpatient (CLI) | payer MEDICARE, OTHER, SELFPAY ==
[2020-07-29 12:17] VITALS: BMI 24.3
[2020-10-22 15:15] LABS: Platelet Count 324 K/mm3 (150-450); RET-HE 41.3 pg (30-35); Reticulocyte Count 1.38 % (0.5-1.5)
[2020-10-22 16:00] LABS: Vitamin B12 768 pg/mL (211-911); Vitamin D,25 Hydroxy 45.5 ng/mL
[2020-10-22 16:28] LABS: ALB/GLOB Ratio 0.9 RATIO (0.9-2.4); AST(SGOT) 51 U/L (15-37); Alanine Aminotransfer ALT/SGPT 76 U/L (16-61); Albumin, Serum 3.6 g/dL (3.2-5.0); Alkaline Phosphatase 62 U/L (45-117); Anion Gap 10 (5-15); BUN 40 mg/dL (7-18); BUN/Creat Ratio 20.6 RATIO (10-20); Calcium,Total 8.2 mg/dL (8.5-10.1); Chloride 107 mmol/L (98-107); Creatinine, Serum 1.94 mg/dL (0.70-1.30); EST Glomerular Filtration Rate 36 mL/min (>60); Est Glom Filt Rate - Afr Amer 43 mL/min (>60); Ferritin 74 ng/mL (26-388); Globulin 3.9 g/dL (2.2-4.2); Glucose 81 mg/dL (74-106); Iron Binding Capacity,Total 215 ug/dL (250-450); Magnesium 2.3 mg/dL (1.6-2.6); Potassium 3.8 mmol/L (3.5-5.1); Protein, Total 7.5 g/dL (6.4-8.2); Sodium Level 139 mmol/L (136-145); Thyroid Stim Hormone (TSH) 2.86 uIU/mL (0.358-3.74)
[2020-10-23 08:12] LABS: PTHIN 72.6 pg/mL (18.4-80.1)
[2020-10-29 12:52] LABS: VITAMIN B6 9.3 ug/L (5.3-46.7)
== END ==
PROVIDERS: PCP Family Medicine; Referring Provider Family Medicine; Visit Provider Family Medicine
DX: N18.30 Chronic kidney disease, stage 3 unspecified (principal); M81.8 Other osteoporosis without current pathological fracture; D64.9 Anemia, unspecified; I48.91 Unspecified atrial fibrillation
CPT/HCPCS: 36415; 80053; 82306; 82607; 82728; 83550; 83735; 83970; 84207; 84443; 85045

== ENCOUNTER → 2020-11-05 06:18 | Outpatient (CLI) | payer MEDICARE, OTHER, SELFPAY ==
[2020-10-27 10:28] VITALS: BMI 24.5
--- NOTE | 2020-11-05 18:13 | STRESSREP ---
Stress Test Report Pharmacologic myocardial perfusion stress test. 80-year-old man with a history of coronary artery disease status post LAD stenting and atrial fibrillation. Medications: Aspirin, Coumadin, amiodarone, diltiazem, lisinopril, metoprolol. Stress protocol: Resting EKG demonstrates normal sinus rhythm with a rate of 67 bpm resting blood pressure is 158/84 mmHg. 0.4 mg of regadenoson was infused per usual protocol followed by rapid intravenous and flush injection continuous EKG monitoring was performed. Patient maintained sinus rhythm throughout the recording. The maximum heart rate was 83 bpm which was 58% of max impacted heart rate the maximum workload was 1 metabolic equivalent. The final blood pressure was 140/72 mmHg. Myocardial perfusion protocol. 11.2 mCi of technetium 99m sestamibi was injected at rest. 0.4 mg of regadenoson was infused per usual protocol. At peak infusion 31.1 mCi of technetium 99m sestamibi was injected stress images were obtained stress and rest images were reconstructed and compared in the short axis vertical long horizontal long axis. Gated images were also obtained Perfusion SPECT analysis: Review of the stress images demonstrate mildly reduced perfusion in the mid to distal anterior wall on the stress and rest images to a similar extent. The septum anterior wall and lateral wall appear to be well perfused. The inferior wall is also well perfused. No areas of reversibility are noted suggest ischemia. Gated SPECT analysis: The gated ejection fraction is 70%. Conclusion: Pharmacologic myocardial perfusion stress test with no obvious ischemia noted. Previous small anterior myocardial infarction cannot be completely excluded. Preserved ejection fraction.
== END ==
PROVIDERS: PCP Family Medicine; Referring Provider Nurse Practitioner Family; Visit Provider Nurse Practitioner Family
DX: I25.10 Atherosclerotic heart disease of native coronary artery without angina pectoris (principal); R53.83 Other fatigue; R07.9 Chest pain, unspecified; R06.02 Shortness of breath; Z95.5 Presence of coronary angioplasty implant and graft; I48.0 Paroxysmal atrial fibrillation
CPT/HCPCS: 78452; 93017; A9500; A4216; J2785

== ENCOUNTER → 2020-11-20 11:31 | Outpatient (CLI) | payer MEDICARE, OTHER, SELFPAY ==
[2020-10-27 10:28] VITALS: BMI 24.5
[2020-11-20 15:27] LABS: Absolute Lymphocyte Count 0.87 X10^3/uL (0.83-4.51); Absolute Neutrophil Count 7.1 X10^3/uL (2.0-7.7); Basophil# 0.07 X10^3/uL; Basophil% 0.8 % (0-1); Eosinophil# 0.08 X10^3/uL; Eosinophils% 0.9 % (0-5); Hematocrit 35.4 % (40-54); Hemoglobin 11.9 g/dL (13.0-16.5); Lymphocyte # 0.87 X10^3/ul (4.0); Lymphocyte % 9.8 % (19-41); Mean Corp Hgb Conc 33.6 g/dL (32-36); Mean Corpuscular Hgb 36.3 pg (27.0-32.0); Mean Corpuscular Volume 107.9 fL (80-94); Mean Platelet Vol. 10.5 fl (6.2-12.0); Monocyte# 0.72 X10^3/uL; Monocyte% 8.1 % (0-10); NRBC Flagged by Analyzer 0 % (0-5); Neutrophil # 7.13 X10^3/uL (2.7-7.7); Platelet Count 300 K/mm3 (150-450); RBC Distribution Width CV 15.5 % (11.6-14.6); RBC Distribution Width SD 62.2 fl (35.1-43.9); Red Blood Count 3.28 M/mm3 (4.6-6.2); White Blood Count 8.9 K/mm3 (4.4-11.0)
[2020-11-20 15:47] LABS: ALB/GLOB Ratio 0.9 RATIO (0.9-2.4); AST(SGOT) 53 U/L (15-37); Alanine Aminotransfer ALT/SGPT 79 U/L (16-61); Albumin, Serum 3.7 g/dL (3.2-5.0); Alkaline Phosphatase 67 U/L (45-117); Anion Gap 7 (5-15); BUN 29 mg/dL (7-18); BUN/Creat Ratio 17.2 RATIO (10-20); CRP < 2.90 mg/L (0.0-3.0); Calcium,Total 8.8 mg/dL (8.5-10.1); Chloride 108 mmol/L (98-107); Creatinine, Serum 1.69 mg/dL (0.70-1.30); EST Glomerular Filtration Rate 42 mL/min (>60); Est Glom Filt Rate - Afr Amer 51 mL/min (>60); Glucose 87 mg/dL (74-106); Lipase 118 U/L (73-393); Magnesium 2.1 mg/dL (1.6-2.6); Potassium 3.7 mmol/L (3.5-5.1); Protein, Total 7.7 g/dL (6.4-8.2); Sodium Level 140 mmol/L (136-145)
== END ==
PROVIDERS: PCP Family Medicine; Referring Provider Family Medicine; Visit Provider Family Medicine
DX: R07.89 Other chest pain (principal); N18.30 Chronic kidney disease, stage 3 unspecified; R10.13 Epigastric pain
CPT/HCPCS: 36415; 71046; 80053; 83690; 83735; 85025; 86140

== ENCOUNTER → 2020-11-20 11:32 | Outpatient (CLI) | payer MEDICARE, OTHER, SELFPAY ==
[2020-10-27 10:28] VITALS: BMI 24.5
--- NOTE | 2020-11-20 11:34 | RAD_ITS ---
HISTORY: atypical chest pain EXAM: XR Chest 2 Views: COMPARISON: July 20, 2020 AP portable chest x-ray, and October 30, 2019 two-view chest. FINDINGS: # of images incl. paperwork: 2 Vertebroplasty through the T7, T10, T12, and L1 vertebral bodies is unchanged. Multiple wedged compression insufficiency fractures at those levels and additional levels causes for a focal kyphosis at the lower thoracic spine. Right basilar scarring is minimal. Tortuosity descending thoracic aorta. Small hiatal hernia suspected. Left ventricular hypertrophy possibly related to long-standing systemic hypertension. Heart is not enlarged. Pulmonary vascularity is distinct. No effusions. RAD/Chest PA and Lateral IMPRESSION: No acute cardiopulmonary disease perceived.. at 0703 Reported and signed by: Tejas Gibson MD Electronically Signed: Tejas Gibson MD at 7:02 EDT Tel , Service support ,
== END ==
PROVIDERS: PCP Family Medicine; Referring Provider Family Medicine; Visit Provider Family Medicine
DX: R07.89 Other chest pain (principal)
CPT/HCPCS: 71046

== ENCOUNTER 2020-12-09 11:10 | Observation (INO) | payer MEDICARE, OTHER, SELFPAY ==
[2020-10-27 10:28] VITALS: BMI 24.5
[2020-12-09] VITALS (12 sets, daily range): BP systolic 124–162; BP diastolic 61–84; PULSE 60–75; RESP 14–20; TEMP 36.1–36.9; O2SAT 95–97; BMI 24.3; BMI 23.3; BMI 23.4
--- NOTE | 2020-12-09 11:23 | ED.RN ---
pt having dizziness that makes him throw up and dry heave, pt unable to walk straight when dizzy
--- NOTE | 2020-12-09 11:35 | EKG12_ITS ---
Test Reason : DIZZINESS Blood Pressure : / mmHG Vent. Rate : 074 BPM Atrial Rate : 052 BPM P-R Int : 000 ms QRS Dur : 092 ms QT Int : 422 ms P-R-T Axes : 000 001 -31 degrees QTc Int : 468 ms Somatic/Motion Artifact Sinus Vs Ectopic Atrial Rhythm Abnormal ECG Confirmed by RODOLFO KASPER, ELI ([id number]), primer expeditor and drier CIPRIANO GATES ([id number]) on 12/11/2020 11:18:24 AM Referred By: LORIE/RAYNE Confirmed By:ELI REYNOLDS MD
--- NOTE | 2020-12-09 11:35 | RAD_ITS ---
STUDY: X-RAY CHEST REASON FOR EXAM: Male, 80 years old. Chest pain TECHNIQUE: Single frontal view of the chest. COMPARISON: 11/20/20. FINDINGS: Cardiac silhouette enlarged. Pulmonary vascularity unremarkable. Aorta unremarkable. Small right effusion. Possible right mid lung nodule or area of consolidation. Upper abdomen unremarkable. Osseous structures intact. No pneumothorax. RAD/Chest 1 View (Portable) IMPRESSION: Possible right mid lung nodule or area of consolidation. Consider chest CT for further evaluation. Small right effusion. Cardiomegaly. Electronically Signed: Donato Wong MD at 12:25 EDT Tel , Service support ,
[2020-12-09 12:08] LABS: Absolute Neutrophil Count 10.8 X10^3/uL (2.0-7.7); Basophil# 0.11 X10^3/uL; Basophil% 0.8 % (0-1); Eosinophil# 0.13 X10^3/uL; Hematocrit 39.3 % (40-54); Hemoglobin 13.2 g/dL (13.0-16.5); Lymphocyte % 10.3 % (19-41); Mean Corp Hgb Conc 33.6 g/dL (32-36); Mean Corpuscular Hgb 35.7 pg (27.0-32.0); Mean Corpuscular Volume 106.2 fL (80-94); Mean Platelet Vol. 10.3 fl (6.2-12.0); Monocyte# 1.04 X10^3/uL; Monocyte% 7.7 % (0-10); NRBC Flagged by Analyzer 0 % (0-5); Neutrophil # 10.79 X10^3/uL (2.7-7.7); Neutrophil % 79.8 % (47-70); Platelet Count 352 K/mm3 (150-450); RBC Distribution Width CV 15.6 % (11.6-14.6); RBC Distribution Width SD 60.5 fl (35.1-43.9); White Blood Count 13.5 K/mm3 (4.4-11.0)
[2020-12-09 12:12] LABS: International Normalized Ratio 2.7; Prothrombin Time (Protime)PT. 27.6 SECONDS (11.7-14.9)
[2020-12-09] MEDS: Ondansetron 4 MG/2 ML Vial IV (12:12)
[2020-12-09 12:17] LABS: Anion Gap 7 (5-15); BUN 38 mg/dL (7-18); BUN/Creat Ratio 16.6 RATIO (10-20); Calcium,Total 9.6 mg/dL (8.5-10.1); Chloride 105 mmol/L (98-107); Creatinine, Serum 2.29 mg/dL (0.70-1.30); EST Glomerular Filtration Rate 29 mL/min (>60); Est Glom Filt Rate - Afr Amer 36 mL/min (>60); Estimated Creatinine Clearance 25.31 ml/min; Glucose 136 mg/dL (74-106); Potassium 3.7 mmol/L (3.5-5.1); Sodium Level 138 mmol/L (136-145)
--- NOTE | 2020-12-09 13:24 | CT_ITS ---
STUDY: CT BRAIN WITHOUT CONTRAST REASON FOR EXAM: Male, 80 years old. dizzy RADIATION DOSAGE (If Supplied By Facility): CTDIvol = ( ) mGy, DLP = ( ) mGycm TECHNIQUE: Transaxial CT imaging of the brain was performed without administration of intravenous contrast material. Individualized dose optimization techniques were used for this CT. COMPARISON: None. FINDINGS: There is cerebral atrophy with widening of the extra-axial spaces and ventricular dilatation. There are areas of decreased attenuation within the white matter tracts of the supratentorial brain, consistent with microvascular disease changes. There is no intracranial hemorrhage. There are no findings of an acute ischemic infarction. Normal soft tissue structures. Normal visualized paranasal sinuses. CT/Brain/Head without Contrast IMPRESSION: Chronic involutional changes of the brain. Electronically Signed: Jennie Kaminski MD at 14:49 EDT Tel , Service support ,
--- NOTE | 2020-12-09 13:24 | NURSING ---
DR MACARIO GREENBERG
[2020-12-09 13:32] LABS: Bacteria 0 SEEN /hpf (None Seen); Mucous, Urine 0 SEEN /hpf (<or=2+); Squamous Epithelial Cells - UA 0 SEEN /hpf (0-5); White Blood Cells 0 SEEN /hpf (0-5)
[2020-12-09 13:35] LABS: Color, Urine Yellow (Yellow); Glucose, Dipstick Normal (Normal); Ketone-Dipstick Negative (Negative); Leukocyte Esterase-Dipstick Negative /ul (Negative); Nitrite-Dipstick Negative (Negative); Occult Blood-Urine 10 /ul (Negative); Protein-Dipstick 15 mg/dl (Negative); Urine Bilirubin Dipstick Negative (Negative); Urine Clarity Clear (Clear); Urine Urobilinogen Normal (Normal); Urine pH 6.5 (5.0 - 8.0)
[2020-12-09 13:41] LABS: Red Blood Cells-Urine 0-5 SEEN /hpf (0-5)
--- NOTE | 2020-12-09 13:54 | ED.DCSUM_ITS ---
- ER Visit Summary Date of Service: 12/09/20 Chief Complaint: Dizziness History of Present Illness: The patient is a 80 M who reports dizziness that he describes as an unsteadiness since yesterday. Nothing seemed to bring this on. Associated with some nausea and sweats. No chest pain or shortness of breath. He has a history of coronary disease, atrial fibrillation, NC, hypertension, hyperlipidemia. He thought that may be a bout of tachycardia brought this on. He does take warfarin and is compliant. Physical Examination: Afebrile and vital signs unremarkable. Patient alert and oriented and in no acute distress. Heart regular. Lungs clear. Abdomen soft. Nonfocal neurologic exam. Test Results: EKG shows a junctional rhythm at a rate of [address] and T wave changes. White count 13.5, BUN 38, creatinine 2.29. Kidney function stable. INR 2.7, therapeutic. Urinalysis unremarkable. Troponin normal. Covid negative. CT brain pending. Chest x-ray reviewed by the radiologist and myself shows cardiomegaly, small right effusion, right nodule versus consolidation. Emergency Department Course and Treatment: Patient presents with dizziness. Also nausea, sweats, cardiac history. Concern for tachycardia. His vitals here were unremarkable. His NIH stroke scale was 0. Patient was not a candidate for TPA or stroke team. Work-up as above was all fairly unremarkable. He has a small right effusion and right side lung nodule. Do not believe these are causing his symptoms. I do not believe he has pneumonia. He does not have fever, cough, or any respiratory symptoms. On reevaluation, he remains dizzy. He is not having tachycardia, hypotension, or any chest pain. CT brain is pending. Per my interpretation, I note chronic changes. The oncoming physician will check the official read and contact the hospitalist for further care. Treatment Plan: As above Disposition: Observation Impression: Dizziness This note was generated with [employer] dictation software. It may contain incorrect words, spelling, and punctuation that were not noted in review of the chart prior to signing ED Disposition - Plan for ED Patient: Referrals: César Chinchilla MD [Primary Care Provider] -
--- NOTE | 2020-12-09 15:12 | HP.PCM_ITS ---
Problem List (1) Stage 3b chronic kidney disease Status: Chronic (2) Benign prostatic hyperplasia Status: Chronic (3) Atherosclerotic heart disease of [place] coronary artery without angina pectoris Status: Chronic Qualifiers: Comment: BMY-BYR-Fmoa LAD w/ 3.5 x 15 mm S670 08/04/2000 (4) History of coronary artery stent placement Status: Chronic Comment: SKS-XDM-Tenh LAD w/ 3.5 x 15 mm S670 08/04/2000 (5) Paroxysmal atrial fibrillation Status: Chronic Comment: Pulmonary vein isolation in 2011; DCCV on 06/18/2019; (6) Essential (primary) hypertension Status: Chronic (7) HLD (hyperlipidemia) Status: Chronic Qualifiers: History of Present Illness Date of Admission: 12/09/20 Chief Complaint: Dizziness. The patient is a 80 year old M with past medical history as mentioned above presented to the emergency room because of dizziness. His symptoms started yesterday with not feeling well, woke up this morning and he started having dizziness. He described this dizziness as unsteadiness and sometimes spinning sensation, intermittent, associated with dry heaving and sweating and he has been stumbling on both sides. He denied aggravating or relieving factors. He denied chest pain, palpitation, syncope or presyncope. Currently, he is feeling better. He denied facial numbness or tingling. He denied focal arm or leg weakness. He denied blurred vision or slurred speech. In the emergency department, his vital signs were stable, was afebrile. Orthostatic vitals were normal. Routine blood work was remarkable for mild leukocytosis, BUN of 38, creatinine is 2.29. EKG revealed normal sinus rhythm, no acute changes. Troponin was negative. Urinalysis was unremarkable. CT scan brain showed no acute findings. Chest chronic fibrotic right lower lung changes, no acute consolidation cardiology as. It was read by radiology as possible Mid right lung consolidation which I doubt. He is being admitted for dizziness and probable TIA for evaluation. Past Medical History Past Medical History (Chronic Problems): Chronic Problems (Last Updated 12/09/20 @ 14:[address] 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) Stage 3b chronic kidney disease (Chronic) Benign prostatic hyperplasia (Chronic) Atherosclerotic heart disease of [place] coronary artery without angina pectoris (Chronic) SHE-ANB-Tmlv LAD w/ 3.5 x 15 mm S670 08/04/2000 History of coronary artery stent placement (Chronic 08/04/00) RBE-RVE-Ombo LAD w/ 3.5 x 15 mm S670 08/04/2000 Paroxysmal atrial fibrillation (Chronic) Pulmonary vein isolation in 2011; DCCV on 06/18/2019; Non-rheumatic tricuspid valve insufficiency (Chronic) Secondary pulmonary arterial hypertension (Chronic) Essential (primary) hypertension (Chronic) HLD (hyperlipidemia) (Chronic) Old myocardial infarction (Chronic) Medical History: Medical History (Last Updated 12/09/20 @ 14:[address] Cassandra Wolf MD) Atherosclerotic heart disease of [place] coronary artery without angina pectoris (Chronic) I25.10 LED-TIA-Opkb LAD w/ 3.5 x 15 mm S670 08/04/2000 Paroxysmal atrial fibrillation (Chronic) I48.0 Pulmonary vein isolation in 2011; DCCV on 06/18/2019; Non-rheumatic tricuspid valve insufficiency (Chronic) I36.1 Secondary pulmonary arterial hypertension (Chronic) I27.21 Essential (primary) hypertension (Chronic) I10 HLD (hyperlipidemia) (Chronic) E78.5 Old myocardial infarction (Chronic) I25.2 BPH (benign prostatic hyperplasia) N40.0 GI bleed Onset Date: 2012 K92.2 History of hyperthyroidism Z86.39 History of electrophysiologic study Onset Date: 08/08/00 Z98.890 for NSVT Allergies prednisone Allergy (Verified 12/09/20 11:11) Rash diclofenac Adverse Reaction (Verified 12/09/20 11:11) rash Home Medications: Ambulatory Orders Medication Instructions Recorded aspirin 81 mg tablet,delayed 81 mg PO QDAY 01/09/18 release Warfarin [Coumadin] 5 mg PO DAILY 06/15/19 nitroglycerin 0.4 mg sublingual 0.4 mg SUBLINGUAL Q5-15M PRN #25 10/01/19 tablet tab amiodarone 200 mg tablet 200 mg PO DAILY #90 tab 06/03/20 finasteride 5 mg tablet 5 mg PO DAILY tab 06/03/20 warfarin 4 mg tablet 4 mg PO SUTUTHSA tab 06/03/20 Warfarin [Coumadin (PBKC)] 3 mg PO MOWEFR 07/20/20 diltiazem HCl 180 mg 180 mg PO DAILY #90 cap 09/01/20 capsule,extended release 24 hr lisinopril 10 mg tablet 10 mg PO BID #180 tab 09/09/20 calcium citrate 250 mg PO BID 10/27/20 hydralazine 25 mg tablet 25 mg PO BID tab 10/27/20 isosorbide mononitrate 30 mg 30 mg PO DAILY 10/27/20 tablet,extended release 24 hr metoprolol tartrate 25 mg tablet 12.5 mg PO BID tab 10/27/20 pyridoxine (vitamin B6) 50 mg 50 mg PO DAILY 10/27/20 tablet Surgical History: Surgical History (Last Updated 12/09/20 @ 14:[address] Cassandra Wolf MD) History of coronary artery stent placement (Chronic) Onset Date: 08/04/00 Z95.5 HZF-REZ-Qqrr LAD w/ 3.5 x 15 mm S670 08/04/2000 History of back surgery Z98.890 History of Zenaida fundoplication Z98.890 History of cardioversion Onset Date: 06/18/19 Z98.890 2018 History of hemorrhoidectomy Z98.890 History of hernia repair Z98.890, Z87.19 History of left heart catheterization Onset Date: 07/17/12 Z98.890 History of radiofrequency ablation procedure for cardiac arrhythmia Onset Date: 11/11/11 Z98.89 A-FIB ablation Surgical History: angioplasty, - - cardiversion, 3 hernia operations, back surgey 3 times hemorrhoid surgery. Lives: Alone Smoking Status: Never smoker Alcohol: None Drugs: None - *Family History Paternal Family History: Family History (Last Reviewed 07/29/20 @ 14:[address] Tremaine Molina MD) Father Cancer Mother Hypertension Sister Hypertension History Items: - - prostate cancer Maternal Family History: Family History (Last Reviewed 07/29/20 @ 14:[address] Tremaine Molina MD) Father Cancer Mother Hypertension Sister Hypertension History Items: Heart Disease, - Review of Systems Constitutional: Denies: Anorexia, Chills, Fever, Weakness Eyes: Denies: Blurred vision, Double vision, Drainage, Redness HEENT: Denies: Difficulty Hearing, Ear Pain, Eye Pain, Head Aches, Nasal Congestion, Sore Throat Cardiovascular: Reports: Light Headedness. Denies: Chest Pain, Chest Pressure, Edema, Heaviness, Palpitations, Syncope Respiratory: Denies: Cough, Pleuritic Pain, Shortness of Breath, Sputum production, Wheezing Gastrointestinal: Reports: Nausea. Denies: Abdominal Pain, Constipation, Diarrhea, Vomiting Genitourinary: Denies: Dysuria, Frequency, Hematuria Musculoskeletal: Denies: Arm Pain, Back Pain, Foot Pain Skin: Denies: Dryness, Rash Neurological: Denies: Balance problems, Double vision, Change in Speech, Slurred speech, Confusion, Focal weakness, Headaches Psychiatric: Denies: Anxiety, Depression Endocrine: Denies: Change in Body Habitus, Polydipsia, Polyuria VTE Information - Inpt Only VTE Present on Admission: No VTE Mechan Device Prophylaxis: None VTE Pharm Prophylaxis ordered?: No - Physical Exam Vitals/I&O's: Vital Signs Temp Pulse Resp BP Pulse Ox 97 F L 66 16 141/79 H 97 12/09/20 11:11 12/09/20 14:04 12/09/20 14:04 12/09/20 14:04 12/09/20 14:04 Oxygen Delivery Method Room Air Weight: 160 lb Body Mass Index (BMI) 24.3 General: Alert, Oriented x3, Cooperative, No apparent distress HEENT: Atraumatic, PERRLA, EOMI, Normocephalic Oral: Moist Mucosa, No Gingival or Mucosal Lesions/ Ulcerations Neck: Supple, No JVD, Negative Carotid Bruits, Trachea Midline, Thyroid Normal Size and Texture Lungs: Clear to auscultation, No rhonchi, No wheeze, No rales, Diminished Cardiovascular: Regular rate, Regular Rhythm, Normal S1, Normal S2, PMI Normal Abdomen: Bowel Sounds Present, Soft, Non Tender, Non-Distended, No Hepato-sple nomegaly Extremities: No clubbing, No cyanosis, No edema Skin: No rashes, No breakdown Lymphatic: No Cervical, Supraclavicular, or Inguinal Adenopathy Neurological: Cranial nerves II-XII grossly intact, Motor Exam 5/5 strength throughout Psych/Mental Status: Normal Affect, Appropriate, Alert and oriented to time, place, person, mood and affect Microbiology Past 72 Hours 12/09/20 12:00 Nasal Secretion SARS-CoV-2 Antigen (Rapid) - Final Laboratory Results 12/09/20 11:25: WBC 13.5 H, RBC 3.70 L, Hgb 13.2, Hct 39.3 L, MCV 106.2 H, MCH 35.7 H, MCHC 33.6, RDW Std Deviation 60.5 H, RDW Coeff of Pablo 15.6 H, Plt Count 352, MPV 10.3, Immature Gran % (Auto) 0.400, Neut % (Auto) 79.8 H, Lymph % (Auto) 10.3 L, [place] % (Auto) 7.7, Eos % (Auto) 1.0, Baso % (Auto) 0.8, Absolute Neuts (auto) 10.8 H, Absolute Lymphs (auto) 1.40, Nucleated RBC % 0 12/09/20 11:25: PT 27.6 H, INR 2.7 12/09/20 11:25: Sodium 138, Potassium 3.7, Chloride 105, Carbon Dioxide 26.0, Anion Gap 7, BUN 38 H, Creatinine 2.29 H, Estim Creat Clear Calc 25.31, Est GFR (MDRD) Af Amer 36 L, Est GFR (MDRD) Non-Af 29 L, BUN/Creatinine Ratio 16.6, Glucose 136 H, Calcium 9.6, Troponin I < 0.015 12/09/20 13:27: Urine Color Yellow, Urine Clarity Clear, Urine pH 6.5, Ur Specific [place] 1.010, Urine Protein 15 H, Urine Glucose (UA) Normal, Urine Ketones Negative, Urine Occult Blood 10 H, Urine Nitrite Negative, Urine Bilirubin Negative, Urine Urobilinogen Normal, Ur Leukocyte Esterase Negative, Urine RBC 0-5 SEEN, Urine WBC 0 SEEN, Ur Squamous Epith Cells 0 SEEN, Urine Bacteria 0 SEEN, Urine Mucus 0 SEEN Clinical Impression(s) from Imaging Studies Chest X-Ray 12/09/20 11:35 IMPRESSION: Possible right mid lung nodule or area of consolidation. Consider chest CT for further evaluation. Small right effusion. Cardiomegaly. Electronically Signed: Donato Wong MD at 12:25 EDT Tel , Service support , Brain CT 12/09/20 13:24 IMPRESSION: Chronic involutional changes of the brain. Electronically Signed: Jennie Kaminski MD at 14:49 EDT Tel , Service support , Assessment/Plan This is a 80 years old male patient presented to the emergency room because of dizziness, imbalance and is being admitted for probable TIA. #1 dizziness/intermittent vertigo/probable TIA: He has no focal deficit on physical exam, NIH stroke scale is 0. CT scan brain was unremarkable. Plan: Admit to PCU for observation, cardiac monitoring, NIH stroke scale, MRI brain, continue aspirin and Coumadin, start Lipitor, gentle IV fluid hydration, Tylenol as needed, Zofran as needed, repeat CBC and BMP tomorrow morning, PT OT evaluation and treatment. At this time, I doubt pneumonia, chest x-ray reviewed. Patient had CT chest back in 2019 that revealed fibrotic changes of the right lung. #2 CAD status post stents: EKG reviewed, troponin is negative. Continue aspirin, nitrate, lisinopril and metoprolol. #3 paroxysmal atrial fibrillation: Rate is controlled, continue Cardizem, amiodarone and metoprolol for rate control, continue Coumadin for anticoagulation. #4 hypertension: Blood pressure stable, continue hydralazine, nitrate and lisinopril as well as metoprolol. #5 stage IIIb chronic kidney disease: Baseline creatinine has been around 1.6 to 2.4 mg/dL. Admission creatinine is 2.29, stable at baseline. #5 hyperlipidemia: We will start Lipitor. #6 DVT prophylaxis: On Coumadin, INR is therapeutic. This note was generated with [employer] dictation software. It may contain incorrect words, spelling, and punctuation that were not noted in checking the note before signing. OBSV E&M: 80778 Initial observation care L3
--- NOTE | 2020-12-09 15:18 | NURSING ---
PCU ASHELFAH DIZZINESS, PROBABLE TIA
--- NOTE | 2020-12-09 15:41 | MRI_ITS ---
STUDY: MRI BRAIN WITHOUT CONTRAST REASON FOR EXAM: Male, 80 years old. Vertigo TECHNIQUE: Standardized multiplanar fat and water weighted pulse sequences were obtained. COMPARISON: CT of the brain 12/09/2020 FINDINGS: Moderate atrophy and advanced periventricular white matter ischemic changes without mass effect or restricted diffusion.. 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 Normal bilateral basal ganglia. Normal thalami. There is no extra-axial fluid accumulation. Normal flow voids within the major intracranial circulation suggesting patency by spin echo criteria. Normal sella turcica, pituitary gland, infundibular stalk, optic chiasm and hypothalamus. Normal tectal plate and pineal gland. Normal midbrain, jonas and medulla. Normal cerebellum. Normal basal cisterns. Normal bilateral temporal bones. Normal bilateral internal auditory canals. Mild mucosal thickening of the ethmoid sinuses. Postsurgical changes of the orbits. Normal calvarium and skull base. Normal visualized soft tissue structures. Normal visualized upper cervical spine. MRI/Brain without Contrast IMPRESSION: Atrophy and advanced periventricular white matter ischemic changes without evidence for acute infarct Electronically Signed: Phoenix Alba MD at 19:44 EDT , Service support ,
[2020-12-09] MEDS: 0.9% Normal Saline 1,000 ML 75 ML IV (16:12)
[2020-12-09] MEDS: dilTIAZem CD 180 MG Capsule PO (17:50)
[2020-12-09] MEDS: Isosorbide Mononitrate 30 MG Tablet PO (17:51)
[2020-12-09] MEDS: Calcium Carbonate 500 MG Tablet PO (18:02)
[2020-12-09] MEDS: hydrALAZINE 25 MG Tablet PO (21:55)
[2020-12-09] MEDS: Metoprolol Tartrate 25 MG Tablet 12.5 MG PO (21:56)
[2020-12-09] MEDS: Lisinopril 10 MG Tablet PO (21:56)
[2020-12-09] MEDS: Atorvastatin Calcium 80 MG Tablet PO (21:56)
[2020-12-10] VITALS (8 sets, daily range): BP systolic 129–138; BP diastolic 65–71; PULSE 56–61; RESP 16–18; TEMP 36.6–36.7; O2SAT 94–98
[2020-12-10] MEDS: Acetaminophen 325 MG Tablet 650 MG PO (00:27)
[2020-12-10 05:24] LABS: Absolute Lymphocyte Count 1.05 X10^3/uL (0.83-4.51); Absolute Neutrophil Count 8.1 X10^3/uL (2.0-7.7); Basophil# 0.09 X10^3/uL; Basophil% 0.9 % (0-1); Eosinophil# 0.21 X10^3/uL; Hemoglobin 10.9 g/dL (13.0-16.5); Lymphocyte # 1.05 X10^3/ul (4.0); Lymphocyte % 10.1 % (19-41); Mean Corpuscular Volume 108.9 fL (80-94); Mean Platelet Vol. 9.9 fl (6.2-12.0); Monocyte# 0.96 X10^3/uL; Monocyte% 9.2 % (0-10); NRBC Flagged by Analyzer 0 % (0-5); Neutrophil # 8.08 X10^3/uL (2.7-7.7); Neutrophil % 77.4 % (47-70); Platelet Count 276 K/mm3 (150-450); RBC Distribution Width CV 15.6 % (11.6-14.6); RBC Distribution Width SD 61.8 fl (35.1-43.9); Red Blood Count 3.03 M/mm3 (4.6-6.2); White Blood Count 10.4 K/mm3 (4.4-11.0)
[2020-12-10 05:37] LABS: International Normalized Ratio 3.5; Prothrombin Time (Protime)PT. 34.2 SECONDS (11.7-14.9)
[2020-12-10 05:39] LABS: Anion Gap 4 (5-15); BUN 34 mg/dL (7-18); BUN/Creat Ratio 15.9 RATIO (10-20); Calcium,Total 8.2 mg/dL (8.5-10.1); Chloride 110 mmol/L (98-107); Creatinine, Serum 2.14 mg/dL (0.70-1.30); EST Glomerular Filtration Rate 32 mL/min (>60); Est Glom Filt Rate - Afr Amer 39 mL/min (>60); Estimated Creatinine Clearance 27.08 ml/min; Glucose 113 mg/dL (74-106); Potassium 3.5 mmol/L (3.5-5.1); Sodium Level 140 mmol/L (136-145)
[2020-12-10] MEDS: Lisinopril 10 MG Tablet PO (09:38)
[2020-12-10] MEDS: Senna/Docusate Sodium 1 Tablet 2 TABLET PO (09:38)
[2020-12-10] MEDS: Metoprolol Tartrate 25 MG Tablet 12.5 MG PO (09:38)
[2020-12-10] MEDS: Finasteride 5 MG Tablet PO (09:38)
[2020-12-10] MEDS: Aspirin E.C. 81 MG Tablet PO (09:38)
[2020-12-10] MEDS: Amiodarone 200 MG Tablet PO (09:38)
[2020-12-10] MEDS: Calcium Carbonate 500 MG Tablet PO (09:38)
[2020-12-10] MEDS: hydrALAZINE 25 MG Tablet PO (09:39)
--- NOTE | 2020-12-10 10:54 | DCINST_ITS ---
- Discharge Diagnoses Current Active Problems: Current Active and Chronic Problems (Last Updated 12/09/20 @ 14:[address] Cassandra Wolf MD) Stage 3b chronic kidney disease (Chronic) Benign prostatic hyperplasia (Chronic) Atherosclerotic heart disease of [place] coronary artery without angina pectoris (Chronic) EIT-BFZ-Ymyd LAD w/ 3.5 x 15 mm S670 08/04/2000 History of coronary artery stent placement (Chronic 08/04/00) [id number]-Fgmd LAD w/ 3.5 x 15 mm S670 08/04/2000 Paroxysmal atrial fibrillation (Chronic) Pulmonary vein isolation in 2011; DCCV on 06/18/2019; Essential (primary) hypertension (Chronic) HLD (hyperlipidemia) (Chronic) You will use the following diet at home:: No restrictions Discharge Activity: Return to Normal Activity Call your doctor if you observe: Shortness of breath, Dizziness, Fainting spells, Chest pain Allergies/Adverse Reactions: Allergies prednisone Allergy (Verified 12/09/20 11:11) Rash diclofenac Adverse Reaction (Verified 12/09/20 11:11) rash Medications to take at Discharge nitroglycerin 0.4 mg sublingual tablet 0.4 mg SUBLINGUAL Q5-15M PRN #25 tab 10/01/19 finasteride 5 mg tablet 5 mg PO DAILY tab 06/03/20 warfarin 4 mg tablet 4 mg PO DAILY tab 06/03/20 hydralazine 25 mg tablet 25 mg PO BID tab 10/27/20 isosorbide mononitrate 30 mg tablet,extended release 24 hr 30 mg PO DINNER 10/27/20 metoprolol tartrate 25 mg tablet 12.5 mg PO BID tab 10/27/20 pyridoxine (vitamin B6) 50 mg tablet 50 mg PO DAILY 10/27/20 Amiodarone HCl 200 mg PO DAILY 12/09/20 Aspirin E.C. [Ecotrin] 81 mg PO DAILY@0800 12/09/20 Calcium Carbonate/Vitamin D3 [Calcium 250-D Tablet] 1 tablet PO DAILY 12/09/20 Denosumab [Prolia] 60 mg SQ [id number] 12/09/20 Diltiazem HCl [Diltiazem 24Hr ER (Cd)] 180 mg PO DAILY@1700 12/09/20 Glucosamine/D3/Boswellia Gris [Osteo Bi-Flex Tablet] 1 tablet PO BID 12/09/20 Lisinopril 10 mg PO BID 12/09/20 Sodium Chloride [Saline Nasal [place]] 1 spray NASAL Q6H PRN 12/09/20 Vitamin B Complex 1 cap PO BID 12/09/20 Meclizine HCl [Antivert] 12.5 mg PO TID PRN PRN #20 tablet 12/10/20 The following prescriptions were given: Meclizine HCl [Antivert] 12.5 mg PO TID PRN PRN #20 tablet PRN Reason: Vertigo Transmission Status: Pending to [id number] Primary Care Physician: César Chinchilla MD [Primary Care Provider] - Please follow up with your Primary Care Physician in: 1 Week Test Results: Test results from this visit will be discussed in further detail at your follow- up appointment, if applicable. Proposed Discharge Date: 12/10/20
--- NOTE | 2020-12-10 11:00 | CASEMGMT ---
SW did not complete a PHQ 9 as patient did not have a Stroke or TIA per Nurse Practitioner. [facility]
--- NOTE | 2020-12-10 11:02 | PCM.DC.SUM ---
<Yamilka Aguayo [employer] - Last Filed: 12/10/20 15:00> Discharge Date and Diagnosis Date of Admission: 12/09/20 Date of Discharge: 12/10/20 - Primary Discharge Diagnosis Acute Problems: 1. Acute vertigo, TIA/CVA ruled out 2. CAD with history of stents 3. Paroxysmal atrial fibrillation 4. Hypertension 5. Hyperlipidemia 6. Chronic kidney disease stage IIIb 7. Right mid lung nodule - Secondary Discharge Diagnosis Chronic Problems: Chronic Problems (Last Updated 12/09/20 @ 14:[address] 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 Consider chest CT for further evaluation. Small right effusion. Cardiomegaly. Electronically Signed: Donato Wong MD at 12:25 EDT Tel , Service support , Brain CT 12/09/20 13:24 IMPRESSION: Chronic involutional changes of the brain. Electronically Signed: Jennie Kaminski MD at 14:49 EDT Tel , Service support , Brain MRI 12/09/20 15:41 IMPRESSION: Atrophy and advanced periventricular white matter ischemic changes without evidence for acute infarct Electronically Signed: Phoenix Alba MD at 19:44 EDT , Service support , Operations: None Procedures: None Summary of Care Provided: The patient is a 80 year old M admitted 12/09/2020 due to dizziness. 1. Acute vertigo, TIA/CVA ruled out-patient reports episode of room spinning with associated nausea. Denies unilateral weakness or focal deficits. Vertigo symptoms have resolved. MRI of brain negative. No arrhythmias on telemetry. Recent stress test 11/05/2020 without ischemia. As needed meclizine. Follow-up with PCP in 1 week. 2. CAD with history of stents- Follows with Dr. Molina. Continue aspirin, isosorbide, metoprolol, statin. 3. Paroxysmal atrial fibrillation-on anticoagulation with Coumadin, INR therapeutic. On amiodarone, Cardizem, metoprolol. 4. Hypertension-stable, continue hydralazine, nitrate, lisinopril, metoprolol. 5. Hyperlipidemia-continue statin. 6. Chronic kidney disease stage IIIb-at baseline. 7. Right mid lung nodule-per chest x-ray. CT of chest completed, result pending. Patient stated if he did not believe by 3 PM, he would not have a ride home and he had to picker feeder his dog. We will follow up CT results with PCP. Patient seen and examined prior to discharge. Physical assessment as noted below. Patient is stable for discharge with follow up recommendations as noted above. This patient was seen by ETHEL Grullon under the supervision of Dr. Hartley. - Physical Exam Vitals/I&O's: Vital Signs Temp Pulse Resp BP Pulse Ox 98.1 F 61 18 138/68 H 98 12/10/20 09:34 12/10/20 09:39 12/10/20 09:34 12/10/20 09:34 12/10/20 09:34 Oxygen Delivery Method Room Air Weight: 153 lb 10.595 oz Body Mass Index (BMI) 23.3 Intake and Output for Last 24 Hours 12/08/20 12/09/20 12/10/20 23:59 23:59 23:59 Intake Total 132.5 / 432.5 1487.5 / 1487.5 Output Total 300 / 300 Balance 132.5 / 432.5 1187.5 / 1187.5 General: Alert, Oriented x3, Cooperative HEENT: Atraumatic, PERRLA, EOMI, Normocephalic Neck: Supple, No JVD, Negative Carotid Bruits Lungs: Clear to auscultation, Normal air movement Cardiovascular: Regular rate, No murmurs Abdomen: Bowel Sounds Present, Soft, Non Tender, Non-Distended Extremities: No clubbing, No cyanosis, No edema, Capillary Refill Less than 3 Seconds Skin: No rashes, No breakdown Musculoskeletal: No Tenderness to Palpation of Joints or Extremities Neurological: Cranial nerves II-XII grossly intact, Neuro grossly intact Psych/Mental Status: Normal Affect, Appropriate Microbiology Past 72 Hours 12/09/20 12:00 Nasal Secretion SARS-CoV-2 Antigen (Rapid) - Final Laboratory Results 12/09/20 11:25: WBC 13.5 H, RBC 3.70 L, Hgb 13.2, Hct 39.3 L, MCV 106.2 H, MCH 35.7 H, MCHC 33.6, RDW Std Deviation 60.5 H, RDW Coeff of Pablo 15.6 H, Plt Count 352, MPV 10.3, Immature Gran % (Auto) 0.400, Neut % (Auto) 79.8 H, Lymph % (Auto) 10.3 L, Hubbard % (Auto) 7.7, Eos % (Auto) 1.0, Baso % (Auto) 0.8, Absolute Neuts (auto) 10.8 H, Absolute Lymphs (auto) 1.40, Nucleated RBC % 0 12/09/20 11:25: PT 27.6 H, INR 2.7 12/09/20 11:25: Sodium 138, Potassium 3.7, Chloride 105, Carbon Dioxide 26.0, Anion Gap 7, BUN 38 H, Creatinine 2.29 H, Estim Creat Clear Calc 25.31, Est GFR (MDRD) Af Amer 36 L, Est GFR (MDRD) Non-Af 29 L, BUN/Creatinine Ratio 16.6, Glucose 136 H, Calcium 9.6, Troponin I < 0.015 12/09/20 13:27: Urine Color Yellow, Urine Clarity Clear, Urine pH 6.5, Ur Specific [place] 1.010, Urine Protein 15 H, Urine Glucose (UA) Normal, Urine Ketones Negative, Urine Occult Blood 10 H, Urine Nitrite Negative, Urine Bilirubin Negative, Urine Urobilinogen Normal, Ur Leukocyte Esterase Negative, Urine RBC 0-5 SEEN, Urine WBC 0 SEEN, Ur Squamous Epith Cells 0 SEEN, Urine Bacteria 0 SEEN, Urine Mucus 0 SEEN 12/10/20 05:16: WBC 10.4, RBC 3.03 L, Hgb 10.9 L, Hct 33.0 L, MCV 108.9 H, MCH 36.0 H, MCHC 33.0, RDW Std Deviation 61.8 H, RDW Coeff of Pablo 15.6 H, Plt Count 276, MPV 9.9, Immature Gran % (Auto) 0.400, Neut % (Auto) 77.4 H, Lymph % (Auto) 10.1 L, Hubbard % (Auto) 9.2, Eos % (Auto) 2.0, Baso % (Auto) 0.9, Absolute Neuts (auto) 8.1 H, Absolute Lymphs (auto) 1.05, Nucleated RBC % 0 12/10/20 05:16: PT 34.2 H, INR 3.5 12/10/20 05:16: Sodium 140, Potassium 3.5, Chloride 110 H, Carbon Dioxide 26.0, Anion Gap 4 L, BUN 34 H, Creatinine 2.14 H, Estim Creat Clear Calc 27.08, Est GFR (MDRD) Af Amer 39 L, Est GFR (MDRD) Non-Af 32 L, BUN/Creatinine Ratio 15.9, Glucose 113 H, Calcium 8.2 L Current Medications Acetaminophen (Acetaminophen 325 Mg Tablet) 650 mg PO Q6H PRN PRN PRN Reason: Pain Score 1-10/Temp > 100.7 F Last Admin: 12/10/20 00:27 Dose: 650 mg Documented by: Amiodarone HCl (Amiodarone 200 Mg Tablet) 200 mg PO DAILY [facility] Last Admin: 12/10/20 09:38 Dose: 200 mg Documented by: Aspirin (Aspirin E.C. 81 Mg Tablet) 81 mg PO DAILY@0800 [facility] Last Admin: 12/10/20 09:38 Dose: 81 mg Documented by: Atorvastatin Calcium (Atorvastatin Calcium 80 Mg Tablet) 80 mg PO QHS [facility] Last Admin: 12/09/20 21:56 Dose: 80 mg Documented by: Calcium Carbonate (Calcium Carbonate 500 Mg Tablet) [facility] Last Admin: 12/10/20 09:38 Dose: 500 mg Documented by: Diltiazem HCl (Diltiazem Cd 180 Mg Capsule) 180 mg PO DAILY@1700 [facility] Last Admin: 12/09/20 17:50 Dose: 180 mg Documented by: Finasteride (Finasteride 5 Mg Tablet) 5 mg PO DAILY [facility] Last Admin: 12/10/20 09:38 Dose: 5 mg Documented by: Hydralazine HCl (Hydralazine 25 Mg Tablet) 25 mg PO BID [facility] Last Admin: 12/10/20 09:39 Dose: 25 mg Documented by: Isosorbide Mononitrate (Isosorbide Mononitrate 30 Mg Tablet) 30 mg PO DINNER [facility] Last Admin: 12/09/20 17:51 Dose: 30 mg Documented by: Lisinopril (Lisinopril 10 Mg Tablet) 10 mg PO BID [facility] Last Admin: 12/10/20 09:38 Dose: 10 mg Documented by: Metoprolol Tartrate (Metoprolol Tartrate 25 Mg Tablet) 12.5 mg PO BID [facility] Last Admin: 12/10/20 09:38 Dose: 12.5 mg Documented by: Ondansetron HCl (Ondansetron 4 Mg/2 Ml Vial) 4 mg IV Q8H PRN PRN PRN Reason: NAUSEA/VOMITING Senna/Docusate Sodium (Senna/Docusate Sodium 1 Tablet) 2 tablet PO BID PRN PRN PRN Reason: Constipation Last Admin: 12/10/20 09:38 Dose: 2 tablet Documented by: Sodium Chloride (0.9% Saline Lock 10 Ml Syringe) 10 - 40 ml IV UD PRN PRN Reason: SALINE FLUSH Warfarin Sodium (Warfarin 4 Mg Tablet) 4 mg PO DAILY@1700 [facility] Last Admin: 12/09/20 17:54 Dose: 4 mg Documented by: Discharge Diet: Low fat/ Low Cholesterol Discharge Activity: Return to Normal Activity Call your doctor if you observe: Shortness of breath, Dizziness, Fainting spells, Chest pain Home Medications: Medications to take at Discharge nitroglycerin 0.4 mg sublingual tablet 0.4 mg SUBLINGUAL Q5-15M PRN #25 tab 10/01/19 finasteride 5 mg tablet 5 mg PO DAILY tab 10/06/20 warfarin 4 mg tablet 4 mg PO DAILY tab 06/03/20 hydralazine 25 mg tablet 25 mg PO BID tab 10/27/20 isosorbide mononitrate 30 mg tablet,extended release 24 hr 30 mg PO DINNER 10/27/20 metoprolol tartrate 25 mg tablet 12.5 mg PO BID tab 10/27/20 pyridoxine (vitamin B6) 50 mg tablet 50 mg PO DAILY 10/27/20 Amiodarone HCl 200 mg PO DAILY 12/09/20 Aspirin E.C. [Ecotrin] 81 mg PO DAILY@0800 12/09/20 Calcium Carbonate/Vitamin D3 [Calcium 250-D Tablet] 1 tablet PO DAILY 12/09/20 Denosumab [Prolia] 60 mg SQ [id number] 12/09/20 Diltiazem HCl [Diltiazem 24Hr ER (Cd)] 180 mg PO DAILY@1700 12/09/20 Glucosamine/D3/Boswellia Gris [Osteo Bi-Flex Tablet] 1 tablet PO BID 12/09/20 Lisinopril 10 mg PO BID 12/09/20 Sodium Chloride [Saline Nasal [place]] 1 spray NASAL Q6H PRN 12/09/20 Vitamin B Complex 1 cap PO BID 12/09/20 Meclizine HCl [Antivert] 12.5 mg PO TID PRN PRN #20 tablet 12/10/20 Following Prescriptions Were Given to Patient: Meclizine HCl [Antivert] 12.5 mg PO TID PRN PRN #20 tablet PRN Reason: Vertigo Transmission Status: Received by [id number] Primary Care Physician: César Chinchilla MD [Primary Care Provider] - Please follow up with your Primary Care Physician in: 1 Week Disposition: Home Minutes spent on discharge:: 35 Patient Condition:: Stable Medical Necessity - Tobacco Use Smoking Status: Never smoker Tobacco Use: Non-smoker Meaningful Use Info Meaningful Use Diagnoses (Choose all that apply): None applicable <César Hartley - Last Filed: 12/10/20 16:06> Discharge Date and Diagnosis - Secondary Discharge Diagnosis Chronic Problems: Chronic Problems (Last Updated 12/09/20 @ 14:[address] 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 Data reviewed. I agree with the above note by the nurse practitioner. The patient is a 80 year old M presents with dizziness. Woke him. Worse with movement. Symptoms did spontaneously resolved. Patient has had this intermittently at times. Patient underwent an MRI of the brain that did not show any acute stroke. Given his acute onset of symptoms is consistent with benign paroxysmal positional vertigo. Patient given prescription for as needed meclizine if needed. Patient advised to attempt Krystal maneuvers at home if he does have recurrence of the symptoms and advised him to check out YouTube channels for demonstration. Chest x-ray was concerning for some pulmonary nodules so a CT of the chest was performed. No pulmonary nodules were identified. Did see multifocal calcific pleural plaquing tiny calcified granuloma at the right upper lobe. No additional work-up is necessary and no further follow-up is necessary at this time. [] - Physical Exam Vitals/I&O's: Vital Signs Temp Pulse Resp BP Pulse Ox 36.7 C 61 18 138/68 H 98 12/10/20 09:34 12/10/20 09:39 12/10/20 09:34 12/10/20 09:34 12/10/20 09:34 Oxygen Delivery Method Room Air Weight: 69.7 kg Body Mass Index (BMI) 23.3 Intake and Output for Last 24 Hours 12/08/20 12/09/20 12/10/20 23:59 23:59 23:59 Intake Total 132.5 / 432.5 1847.5 / 1847.5 Output Total 300 / 300 Balance 132.5 / 432.5 1547.5 / 1547.5 General: Alert, Cooperative HEENT: Atraumatic, Normocephalic Microbiology Past 72 Hours 12/09/20 12:00 Nasal Secretion SARS-CoV-2 Antigen (Rapid) - Final Laboratory Results 12/10/20 05:16: WBC 10.4, RBC 3.03 L, Hgb 10.9 L, Hct 33.0 L, MCV 108.9 H, MCH 36.0 H, MCHC 33.0, RDW Std Deviation 61.8 H, RDW Coeff of Pablo 15.6 H, Plt Count 276, MPV 9.9, Immature Gran % (Auto) 0.400, Neut % (Auto) 77.4 H, Lymph % (Auto) 10.1 L, Hubbard % (Auto) 9.2, Eos % (Auto) 2.0, Baso % (Auto) 0.9, Absolute Neuts (auto) 8.1 H, Absolute Lymphs (auto) 1.05, Nucleated RBC % 0 12/10/20 05:16: PT 34.2 H, INR 3.5 12/10/20 05:16: Sodium 140, Potassium 3.5, Chloride 110 H, Carbon Dioxide 26.0, Anion Gap 4 L, BUN 34 H, Creatinine 2.14 H, Estim Creat Clear Calc 27.08, Est GFR (MDRD) Af Amer 39 L, Est GFR (MDRD) Non-Af 32 L, BUN/Creatinine Ratio 15.9, Glucose 113 H, Calcium 8.2 L Discharge Diet: Low fat/ Low Cholesterol Discharge Activity: Return to Normal Activity Call your doctor if you observe: Shortness of breath, Dizziness, Fainting spells, Chest pain Disposition: Home Medical Necessity - Tobacco Use Smoking Status: Never smoker Tobacco Use: Non-smoker Meaningful Use Info Meaningful Use Diagnoses (Choose all that apply): None applicable OBSV E&M: 61824 Observation care discharge
--- NOTE | 2020-12-10 11:09 | CT_ITS ---
STUDY: CT CHEST WITHOUT CONTRAST REASON FOR EXAM: Male, 80 years old. lung nodule RADIATION DOSAGE (If Supplied By Facility): CTDIvol = ( 10.64 ) mGy, DLP = ( 396.25 ) mGycm TECHNIQUE: Transaxial imaging was performed without the administration of intravenous contrast material. Individualized dose optimization techniques were used for this CT. COMPARISON: Portable chest 12/09/2020 CT of the chest 12/12/2018 FINDINGS: There is mild interstitial thickening in the lower lobes.. There is mild multifocal calcific pleural plaquing. Tiny calcified granuloma in the right upper lobe There is no pleural effusion or pneumothorax. Heart is enlarged and there is multivessel coronary artery calcification as well as coronary stent Normal mediastinum. Normal hilar regions. Normal unenhanced pulmonary arteries. 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 There are multiple chronic compression fractures status post kyphoplasty Diffusely increased attenuation of the liver which may be consistent with prior AMIODARONE utilization or glycogen storage disease. There is also a tiny hepatic cyst Multiple bilateral renal cysts are noted.. CT/Chest without Contrast IMPRESSION: ASHD and mild chronic interstitial changes. Old granulomatous disease. No suspicious pulmonary nodule Electronically Signed: Phoenix Alba MD at 15:46 EDT , Service support ,
--- NOTE | 2020-12-10 13:48 | CASEMGMT ---
Patient has a Healthcare Power of Check Clerk and a Healthcare Living Will. He is aware that they are not on file at [facility]. His sister, Neelima is his Healthcare Power of Check Clerk. Mercy Dixon MSW RAVI
--- NOTE | 2020-12-10 14:21 | PHA.DC.MC ---
Pharmacy Service has performed discharge medication reconciliation and counseling for this patient. 1. MECLIZINE 12.5MG PO TID PRN VERTIGO The patient's discharge medication list was reviewed for discrepancies and discrepancies were resolved. Spoke to Yamilka, patient's INR today is 3.5, instructed patient to hold today's dose of warfarin and call tomorrow to get INR test scheduled before the end of the week. Patient verbalized understanding. Home Medications nitroglycerin 0.4 mg sublingual tablet 0.4 mg SUBLINGUAL Q5-15M PRN #25 tab 10/01/19 finasteride 5 mg tablet 5 mg PO DAILY tab 06/03/20 warfarin 4 mg tablet 4 mg PO DAILY tab 06/03/20 hydralazine 25 mg tablet 25 mg PO BID tab 10/27/20 isosorbide mononitrate 30 mg tablet,extended release 24 hr 30 mg PO DINNER 10/27/20 metoprolol tartrate 25 mg tablet 12.5 mg PO BID tab 10/27/20 pyridoxine (vitamin B6) 50 mg tablet 50 mg PO DAILY 10/27/20 Amiodarone HCl 200 mg PO DAILY 12/09/20 Aspirin E.C. [Ecotrin] 81 mg PO DAILY@0800 12/09/20 Calcium Carbonate/Vitamin D3 [Calcium 250-D Tablet] 1 tablet PO DAILY 12/09/20 Denosumab [Prolia] 60 mg [id number] 12/09/20 Diltiazem HCl [Diltiazem 24Hr ER (Cd)] 180 mg PO DAILY@1700 12/09/20 Glucosamine/D3/Boswellia Gris [Osteo Bi-Flex Tablet] 1 tablet PO BID 12/09/20 Lisinopril 10 mg PO BID 12/09/20 Sodium Chloride [Saline Nasal [place]] 1 spray NASAL Q6H PRN 12/09/20 Vitamin B Complex 1 cap PO BID 12/09/20 Meclizine HCl [Antivert] 12.5 mg PO TID PRN PRN #20 tablet 12/10/20 The patient was counseled on the following discharge medications and changes in medications for homegoing were reviewed. The Reason for Use, instructions for use, and potential side effects were reviewed for all new medications. The patient's questions regarding all of their medications were answered. The patient was able to verbally demonstrate an understanding of their discharge medications.
== END 2020-12-10 15:07 | disposition home or self-care (01) ==
LOC: ED 11:48 → PCU 16:08
PROVIDERS: Admitting Provider Hospitalist; Emergency Provider Emergency Medicine; PCP Family Medicine
DX: R42 Dizziness and giddiness (principal); I25.10 Atherosclerotic heart disease of native coronary artery without angina pectoris; I48.0 Paroxysmal atrial fibrillation; I12.9 Hypertensive chronic kidney disease with stage 1 through stage 4 chronic kidney disease, or unspecified chronic kidney disease; E78.5 Hyperlipidemia, unspecified; N18.32 Chronic kidney disease, stage 3b; R91.1 Solitary pulmonary nodule; Z95.5 Presence of coronary angioplasty implant and graft; Z79.899 Other long term (current) drug therapy; Z79.82 Long term (current) use of aspirin; Z79.01 Long term (current) use of anticoagulants; I25.2 Old myocardial infarction; N40.0 Benign prostatic hyperplasia without lower urinary tract symptoms; I27.21 Secondary pulmonary arterial hypertension
CPT/HCPCS: 36415; 70450; 70551; 71045; 71250; 80048; 81001; 84484; 85025; 85610; 87426; 93005; 96361; 96374; 97161; 97162; 97166; 99218; 99285; J7030; A4216; G0378; J2405

== ENCOUNTER → 2020-12-23 12:25 | Outpatient (CLI) | payer MEDICARE, OTHER, SELFPAY ==
[2020-12-09 15:42] VITALS: BMI 23.3
[2020-12-23 15:41] LABS: Anion Gap 7 (5-15); BUN 27 mg/dL (7-18); BUN/Creat Ratio 15.5 RATIO (10-20); Calcium,Total 8.9 mg/dL (8.5-10.1); Chloride 107 mmol/L (98-107); Creatinine, Serum 1.74 mg/dL (0.70-1.30); EST Glomerular Filtration Rate 40 mL/min (>60); Est Glom Filt Rate - Afr Amer 49 mL/min (>60); Glucose 90 mg/dL (74-106); Potassium 3.9 mmol/L (3.5-5.1); Sodium Level 138 mmol/L (136-145)
== END ==
PROVIDERS: PCP Family Medicine; Referring Provider Family Medicine; Visit Provider Internal Medicine Nephrology
DX: N18.32 Chronic kidney disease, stage 3b (principal)
CPT/HCPCS: 36415; 80048

== ENCOUNTER → 2021-01-02 12:12 | Outpatient (CLI) | payer MEDICARE, OTHER, SELFPAY ==
[2020-12-30 08:32] VITALS: BMI 24.1
== END ==
PROVIDERS: PCP Family Medicine; Referring Provider Nurse Practitioner Family; Visit Provider Nurse Practitioner Family
DX: R00.1 Bradycardia, unspecified (principal)
CPT/HCPCS: 93225; 93226

== ENCOUNTER → 2021-01-06 09:27 | Outpatient (CLI) | payer MEDICARE, OTHER, SELFPAY ==
[2020-12-30 08:32] VITALS: BMI 24.1
[2021-01-06 10:18] LABS: Absolute Lymphocyte Count 1.52 X10^3/uL (0.83-4.51); Absolute Neutrophil Count 9.7 X10^3/uL (2.0-7.7); Basophil# 0.11 X10^3/uL; Basophil% 0.8 % (0-1); Eosinophil# 0.53 X10^3/uL; Eosinophils% 4.1 % (0-5); Hematocrit 27.1 % (40-54); Hemoglobin 9.2 g/dL (13.0-16.5); Lymphocyte # 1.52 X10^3/ul (0.83-4.51); Lymphocyte % 11.7 % (19-41); Mean Corp Hgb Conc 33.9 g/dL (32-36); Mean Corpuscular Hgb 35.7 pg (27.0-32.0); Mean Platelet Vol. 9.8 fl (6.2-12.0); Monocyte# 1.03 X10^3/uL; Monocyte% 7.9 % (0-10); NRBC Flagged by Analyzer 0 % (0-5); Neutrophil # 9.72 X10^3/uL (2.7-7.7); Platelet Count 355 K/mm3 (150-450); RBC Distribution Width CV 15.6 % (11.6-14.6); RBC Distribution Width SD 59.5 fl (35.1-43.9); Red Blood Count 2.58 M/mm3 (4.6-6.2)
== END ==
PROVIDERS: PCP Family Medicine; Referring Provider Family Medicine; Visit Provider Family Medicine
DX: K92.1 Melena (principal)
CPT/HCPCS: 36415; 85025

== ENCOUNTER → 2021-01-08 08:14 | Outpatient (CLI) | payer MEDICARE, OTHER, SELFPAY ==
[2020-12-30 08:32] VITALS: BMI 24.1
[2021-01-08 10:03] LABS: Absolute Lymphocyte Count 1.53 X10^3/uL (0.83-4.51); Absolute Neutrophil Count 9.2 X10^3/uL (2.0-7.7); Basophil# 0.11 X10^3/uL; Basophil% 0.9 % (0-1); Eosinophils% 4.8 % (0-5); Hematocrit 25.6 % (40-54); Hemoglobin 8.5 g/dL (13.0-16.5); Lymphocyte # 1.53 X10^3/ul (0.83-4.51); Lymphocyte % 12.3 % (19-41); Mean Corp Hgb Conc 33.2 g/dL (32-36); Mean Corpuscular Volume 108.5 fL (80-94); Mean Platelet Vol. 9.8 fl (6.2-12.0); Monocyte# 0.93 X10^3/uL; Monocyte% 7.5 % (0-10); NRBC Flagged by Analyzer 0 % (0-5); Neutrophil # 9.22 X10^3/uL (2.7-7.7); Neutrophil % 73.9 % (47-70); Platelet Count 399 K/mm3 (150-450); RBC Distribution Width CV 15.9 % (11.6-14.6); RBC Distribution Width SD 62.9 fl (35.1-43.9); Red Blood Count 2.36 M/mm3 (4.6-6.2); White Blood Count 12.5 K/mm3 (4.4-11.0)
== END ==
PROVIDERS: PCP Family Medicine; Referring Provider Family Medicine; Visit Provider Family Medicine
DX: K92.1 Melena (principal)
CPT/HCPCS: 36415; 85025

== ENCOUNTER 2021-01-11 17:40 | Inpatient (IN) | payer MEDICARE, OTHER, SELFPAY ==
[2020-12-30 08:32] VITALS: BMI 24.1
[2021-01-11] VITALS (12 sets, daily range): BP systolic 107–143; BP diastolic 65–83; PULSE 82–107; RESP 16–18; TEMP 36.7–37.1; O2SAT 94–98; BMI 23.6; BMI 23.3
--- NOTE | 2021-01-11 18:03 | ED.VIS.GI ---
HPI HPI - GI History of Present Illness Chief Complaint: Abd Pain Informant: patient Abdominal Pain/Flank Pain Onset: Weeks Timing: Intermittent Quality: Burning Current Severity: Mild Nausea/Vomiting/Emesis GI Symptom: Positive for Nausea Severity: Mild Diarrhea/Melena/Hematochezia GI Symptom: Positive for Melena Onset: Days Severity: Mild Associated Symptoms Associated Symptoms: Negative for Dysuria and Frequency Narrative Narrative: 80-year-old male history of A. fib on Coumadin. States he has had bright red blood mixed with his stool for last 2 weeks. Once saw his primary care physician's office. Had labs done. Now is noticed black stool and nauseated with dry heaves. States has had some burning in his abdomen and epigastric region. He is on Coumadin for his history of A. fib. Says recently it was too high and had to decrease the dose. He denies any prior abdominal surgeries. He has had upper and lower endoscopy in the past. He denies alcohol use. Prior similar symptoms: No Recent Illness/Hospitalization: No PFSH PFSH Medical History (Updated 01/11/21 @ 19:[address] Steve Mckeon MD) Atherosclerotic heart disease of [place] coronary artery without angina pectoris BPH (benign prostatic hyperplasia) Chronic kidney disease Essential (primary) hypertension GI bleed (2012) History of electrophysiologic study (08/08/00) History of hyperthyroidism HLD (hyperlipidemia) Non-rheumatic tricuspid valve insufficiency Old myocardial infarction Paroxysmal atrial fibrillation Secondary pulmonary arterial hypertension Home Medications finasteride 5 mg tablet 5 mg PO DAILY tab 06/03/20 [History Last Taken 12/09/20] warfarin 4 mg tablet 4 mg PO DAILY tab 06/03/20 [History Last Taken 12/08/20] isosorbide mononitrate 30 mg tablet,extended release 24 hr 30 mg PO DINNER 10/27/20 [History Last Taken 12/08/20] metoprolol tartrate 25 mg tablet 12.5 mg PO BID tab 10/27/20 [History Last Taken 12/09/20] pyridoxine (vitamin B6) 50 mg tablet 50 mg PO DAILY 10/27/20 [History Last Taken 12/08/20] amiodarone 200 mg PO DAILY 12/09/20 [History Last Taken 12/09/20] aspirin 81 mg PO DAILY@0800 12/09/20 [History Last Taken 12/09/20] calcium carbonate-vitamin D3 1 tablet PO DAILY 12/09/20 [History Last Taken 12/08/20] denosumab 60 mg SQ [id number] 12/09/20 [History Last Taken 12/05/20] [id number] serr 1 tablet PO BID 12/09/20 [History Last Taken 2 Days Ago ~12/07/20] lisinopril 10 mg PO BID 12/09/20 [History Last Taken 12/09/20] sodium chloride 1 spray NASAL Q6H PRN 12/09/20 [History Last Taken 12/08/20] vitamin B complex 1 cap PO BID 12/09/20 [History Last Taken 12/09/20] meclizine 12.5 mg PO TID PRN PRN #20 tablet 12/10/20 [Rx Last Taken Unknown] nitroglycerin 0.4 mg sublingual tablet 0.4 mg SL Q5-15M PRN #25 tablet 12/15/20 [Rx Last Taken Unknown] diltiazem HCl 120 mg capsule,24 hr,extended release 120 mg PO DAILY #30 cap 12/30/20 [Rx Last Taken Unknown] hydralazine 25 mg tablet 25 mg PO TID tab 12/30/20 [History Last Taken Unknown] Allergy/AdvReac Type Severity Reaction Status Date / Time prednisone Allergy Rash Verified 01/11/21 17:45 diclofenac AdvReac rash Verified 01/11/21 17:45 Family History Father Cancer Prostate cancer Mother Hypertension Sister Hypertension Surgical History History of back surgery History of cardioversion (06/18/19) History of coronary artery stent placement (08/04/00) History of hemorrhoidectomy History of hernia repair History of left heart catheterization (07/17/12) History of Zenaida fundoplication History of radiofrequency ablation procedure for cardiac arrhythmia (11/11/11) Social History Smoking Status: Never smoker alcohol intake: never substance use type: does not use caffeine: No ROS ROS ED ROS Narrative Patient denies recent illness except for nausea, abdominal pain and blood mixed with stool and/or black stool. Also states he has had some positional lightheadedness when he stands. Review of Systems ROS Unobtainable: Denies due to encephalopathy Constitutional Constitutional ED: Denies fever(s) or sweats ENT ENT ED: Denies ear pain or rhinorrhea Cardiovascular Cardiovascular: Denies chest pain or palpitations Respiratory/Chest Respiratory/Chest: Denies cough or dyspnea Gastrointestinal Gastrointestinal: Reports abdominal pain, melena and nausea; Denies constipation, diarrhea or vomiting Genitourinary Genitourinary ED: Denies dysuria or hematuria Musculoskeletal Musculoskeletal: Denies arthralgias or myalgias Integumentary Denies rash Neurologic Neurologic: Denies headache(s) Psychiatric Psychiatric: Denies depression Endocrine Endocrinology: Denies polyuria Hematologic/Lymphatic Hematologic/Lymphatic: Denies easy bruising Allergic/Immunologic Allergic/Immunologic ED: Denies urticaria EXAM Physical Exam Narrative Exam Narrative: Older male no acute distress vital signs are stable he is tachycardic. Initial blood pressure 143/74. HEENT exam unremarkable lungs are clear. Heart tachycardic rate about 105. Abdomen soft nondistended normal bowel sounds no peritoneal signs. Const Vital Signs: 01/11/21 17:42 Temperature 98.1 F Temperature Source Oral Pulse Rate 107 H Respiratory Rate 16 Blood Pressure 143/74 H Blood Pressure Mean 97 Pulse Ox 98 Oxygen Delivery Method Room Air Positive well nourished and well developed General Appearance ED: well developed HEENT normocephalic and atraumatic Eyes PERRL and EOMs intact bilaterally Neck no lymphadenopathy, supple and no JVD General: Negative for tenderness Resp normal respiratory effort and clear to auscultation bilaterally Cardio regular rhythm and no murmurs Rate: tachycardic GI non-tender, non-distended and no masses Auscultation: normoactive bowel sounds Palpation: soft Back/Spine no CVA tenderness Extremity full ROM General Extremety ED: Negative for edema or tenderness General Extremity: Negative for edema Neuro CN's II-XII intact bilaterally and moves all extremities Sensorium / Orientation: alert, oriented to person, oriented to place, oriented to time and orientation impaired Psych mental status grossly normal Skin Lesions: no lesions Rashes: no rashes MDM MDM MDM Narrative Medical decision making narrative: Older male concern for GI bleed possibly upper. He will be given IV fluids and IV Protonix. Labs are being obtained along with he will be typed and screened for blood. Most likely will need admission. Lab Data Attestation: I reviewed the patient's lab results. Lab results narrative: CBC shows a white count 12.8 hemoglobin 7.2 recently in the last 1 to 2 months has been as high as 11 so obviously he is new anemia may be from internal bleeding. I did do a rectal exam there was really no significant amount of stool no bright red blood and no melena. Chemistries are unremarkable except for acute on chronic renal insufficiency with a BUN of 43 and a creatinine of 2.2 Patient is on Coumadin but recently had a decreased his INR is 1.3 and normal. Liver enzymes are normal. Repeat exam patient is doing well at 7:50 PM. He and I discussed his labs. He has been typed and crossed to be transfused 2 units. I have the hospitalist on page for admission. Currently the patient's vital signs are stable. Labs: Laboratory Results - last 24 hr 01/11/21 01/11/21 01/11/21 17:55 17:55 18:05 WBC RBC Hgb Hct MCV MCH MCHC RDW Std Deviation RDW Coeff of Pablo Plt Count MPV Immature Gran % (Auto) Neut % (Auto) Lymph % (Auto) [place] % (Auto) Eos % (Auto) Baso % (Auto) Absolute Neuts (auto) Absolute Lymphs (auto) Nucleated RBC % PT 15.1 H INR 1.3 Sodium Potassium Chloride Carbon Dioxide Anion Gap BUN Creatinine Estim Creat Clear Calc Est GFR (MDRD) Af Amer Est GFR (MDRD) Non-Af BUN/Creatinine Ratio Glucose Calcium Total Bilirubin AST ALT Alkaline Phosphatase Total Protein Albumin Globulin Albumin/Globulin Ratio Lipase Blood Type B POSITIVE Antibody Screen NEGATIVE Crossmatch See Detail 01/11/21 01/11/21 18:05 18:05 WBC 12.8 H RBC 2.00 L Hgb 7.2 L Hct 21.6 L MCV 108.0 H MCH 36.0 H MCHC 33.3 RDW Std Deviation 62.8 H RDW Coeff of Pablo 16.3 H Plt Count 401 MPV 9.6 Immature Gran % (Auto) 0.500 Neut % (Auto) 77.0 H Lymph % (Auto) 11.5 L [place] % (Auto) 8.1 Eos % (Auto) 2.4 Baso % (Auto) 0.5 Absolute Neuts (auto) 9.8 H Absolute Lymphs (auto) 1.47 Nucleated RBC % 0 PT INR Sodium 140 Potassium 3.4 L Chloride 109 H Carbon Dioxide 24.0 Anion Gap 7 BUN 43 H Creatinine 2.20 H Estim Creat Clear Calc 26.34 Est GFR (MDRD) Af Amer 37 L Est GFR (MDRD) Non-Af 31 L BUN/Creatinine Ratio 19.5 Glucose 120 H Calcium 8.4 L Total Bilirubin 0.50 AST 57 H ALT 84 H Alkaline Phosphatase 70 Total Protein 6.8 Albumin 3.0 L Globulin 3.8 Albumin/Globulin Ratio 0.8 L Lipase 102 Blood Type Antibody Screen Crossmatch Discharge Plan Triage Chief Complaint: Abd Pain ED Provider: Steve Mckeon Dx/Rx/DC Orders Clinical Impression: Acute gastrointestinal bleeding, Acute anemia, Chronic renal insufficiency, History of atrial fibrillation Prescriptions: No Action finasteride 5 mg tablet 5 mg PO DAILY RF: 0 warfarin 4 mg tablet 4 mg PO DAILY RF: 0 isosorbide mononitrate 30 mg tablet extended release 24 hr 30 mg PO DINNER RF: 0 pyridoxine (vitamin B6) 50 mg tablet 50 mg PO DAILY RF: 0 metoprolol tartrate 25 mg tablet 12.5 mg PO BID RF: 0 hydralazine 25 mg tablet 25 mg PO TID RF: 0 diltiazem HCl 120 mg capsule,extended release 24 hr 120 mg PO DAILY Qty: 30 RF: 11 aspirin 81 MG tablet 81 mg PO DAILY@0800 RF: 0 lisinopril 10 MG tablet 10 mg PO BID RF: 0 vitamin B complex 1 EACH capsule 1 cap PO BID RF: 0 sodium chloride 30 ML aerosol,spray 1 spray NASAL Q6H PRN (Reason: Sinus Congestion) RF: 0 calcium carbonate-vitamin D3 1 EACH tablet 1 tablet PO DAILY RF: 0 denosumab 60 MG/ML syringe 60 mg SQ .[id number] RF: 0 [id number]-[id number]-[id number] serr 1 EACH tablet 1 tablet PO BID RF: 0 amiodarone 200 MG tablet 200 mg PO DAILY RF: 0 meclizine 12.5 MG tablet 12.5 mg PO TID PRN PRN (Reason: Vertigo) Qty: 20 RF: 0 nitroglycerin 0.4 mg tablet, sublingual 0.4 mg SL Q5-15M PRN (Reason: chest pain) Qty: 25 RF: 3 Primary Care Provider: César Chinchilla Referrals: César Chinchilla MD [Primary Care Provider] -
[2021-01-11] MEDS: 0.9% Normal Saline 1,000 ML 125 ML IV (18:17)
[2021-01-11] MEDS: Ondansetron 4 MG/2 ML Vial IV (18:17)
[2021-01-11 18:26] LABS: Absolute Lymphocyte Count 1.47 X10^3/uL (0.83-4.51); Absolute Neutrophil Count 9.8 X10^3/uL (2.0-7.7); Basophil# 0.06 X10^3/uL; Basophil% 0.5 % (0-1); Eosinophil# 0.31 X10^3/uL; Eosinophils% 2.4 % (0-5); Hematocrit 21.6 % (40-54); Hemoglobin 7.2 g/dL (13.0-16.5); Lymphocyte # 1.47 X10^3/ul (0.83-4.51); Lymphocyte % 11.5 % (19-41); Mean Corp Hgb Conc 33.3 g/dL (32-36); Mean Platelet Vol. 9.6 fl (6.2-12.0); Monocyte# 1.04 X10^3/uL; Monocyte% 8.1 % (0-10); NRBC Flagged by Analyzer 0 % (0-5); Neutrophil # 9.83 X10^3/uL (2.7-7.7); Platelet Count 401 K/mm3 (150-450); RBC Distribution Width CV 16.3 % (11.6-14.6); RBC Distribution Width SD 62.8 fl (35.1-43.9); White Blood Count 12.8 K/mm3 (4.4-11.0)
[2021-01-11 18:30] LABS: International Normalized Ratio 1.3; Prothrombin Time (Protime)PT. 15.1 SECONDS (11.7-14.9)
[2021-01-11 18:47] LABS: ALB/GLOB Ratio 0.8 RATIO (0.9-2.4); AST(SGOT) 57 U/L (15-37); Alanine Aminotransfer ALT/SGPT 84 U/L (16-61); Alkaline Phosphatase 70 U/L (45-117); Anion Gap 7 (5-15); BUN 43 mg/dL (7-18); BUN/Creat Ratio 19.5 RATIO (10-20); Calcium,Total 8.4 mg/dL (8.5-10.1); Chloride 109 mmol/L (98-107); EST Glomerular Filtration Rate 31 mL/min (>60); Est Glom Filt Rate - Afr Amer 37 mL/min (>60); Estimated Creatinine Clearance 26.34 ml/min; Globulin 3.8 g/dL (2.2-4.2); Glucose 120 mg/dL (74-106); Lipase 102 U/L (73-393); Potassium 3.4 mmol/L (3.5-5.1); Protein, Total 6.8 g/dL (6.4-8.2); Sodium Level 140 mmol/L (136-145)
--- NOTE | 2021-01-11 20:16 | PCM.HP.STD ---
[facility] - [facility] General Date of Admission: 01/11/21 Chief Complaint: Black stools and bright red blood per rectum [facility] Narrative RICHIE HANSEN, is a 80 M with a significant history of CAD status post stent; GI bleed; hypertension; paroxysmal A. fib on Coumadin who presents to the emergency department with a 2-week history of persistent black stools and bright red blood per rectum. Associated with his symptoms is acid reflux and lower abdominal cramps. Further patient has lightheadedness and weakness. Emergency department doctor reports minimal but gross normal stool on rectal examination. Stool was too small to guaiac. Patient reported history of EGD and colonoscopy many years ago with Dr. Hines. He does not know exactly when. [facility] Medical History Atherosclerotic heart disease of [place] coronary artery without angina pectoris BPH (benign prostatic hyperplasia) Chronic kidney disease Essential (primary) hypertension GI bleed (2012) History of electrophysiologic study (08/08/00) History of hyperthyroidism HLD (hyperlipidemia) Non-rheumatic tricuspid valve insufficiency Old myocardial infarction Paroxysmal atrial fibrillation Secondary pulmonary arterial hypertension Home Medications finasteride 5 mg tablet 5 mg PO DAILY tab 06/03/20 [History Last Taken 12/09/20] warfarin 4 mg tablet 4 mg PO DAILY tab 06/03/20 [History Last Taken 12/08/20] isosorbide mononitrate 30 mg tablet,extended release 24 hr 30 mg PO DINNER 10/27/20 [History Last Taken 12/08/20] metoprolol tartrate 25 mg tablet 12.5 mg PO BID tab 10/27/20 [History Last Taken 12/09/20] pyridoxine (vitamin B6) 50 mg tablet 50 mg PO DAILY 10/27/20 [History Last Taken 12/08/20] amiodarone 200 mg PO DAILY 12/09/20 [History Last Taken 12/09/20] aspirin 81 mg PO DAILY@0800 12/09/20 [History Last Taken 12/09/20] calcium carbonate-vitamin D3 1 tablet PO DAILY 12/09/20 [History Last Taken 12/08/20] denosumab 60 mg SQ [id number] 12/09/20 [History Last Taken 12/05/20] voynafdfyit-S0-Dewovnurh serr 1 tablet PO BID 12/09/20 [History Last Taken 2 Days Ago ~12/07/20] lisinopril 10 mg PO BID 12/09/20 [History Last Taken 12/09/20] sodium chloride 1 spray NASAL Q6H PRN 12/09/20 [History Last Taken 12/08/20] vitamin B complex 1 cap PO BID 12/09/20 [History Last Taken 12/09/20] meclizine 12.5 mg PO TID PRN PRN #20 tablet 12/10/20 [Rx Last Taken Unknown] nitroglycerin 0.4 mg sublingual tablet 0.4 mg SL Q5-15M PRN #25 tablet 12/15/20 [Rx Last Taken Unknown] diltiazem HCl 120 mg capsule,24 hr,extended release 120 mg PO DAILY #30 cap 12/30/20 [Rx Last Taken Unknown] hydralazine 25 mg tablet 25 mg PO TID tab 12/30/20 [History Last Taken Unknown] Allergy/AdvReac Type Severity Reaction Status Date / Time prednisone Allergy Rash Verified 01/11/21 17:45 diclofenac AdvReac rash Verified 01/11/21 17:45 Family History Father Cancer Prostate cancer Mother Hypertension Sister Hypertension Surgical History History of back surgery History of cardioversion (06/18/19) History of coronary artery stent placement (08/04/00) History of hemorrhoidectomy History of hernia repair History of left heart catheterization (07/17/12) History of Zenaida fundoplication History of radiofrequency ablation procedure for cardiac arrhythmia (11/11/11) Social History Smoking Status: Never smoker alcohol intake: never substance use type: does not use caffeine: No ROS ROS Narrative 12 point review of system is negative except as stated in HPI Vital Signs Vital Signs Vital Signs: 01/11/21 17:42 01/11/21 19:58 01/11/21 20:03 Temperature 98.1 F 98.6 F 98.6 F Temperature Source Oral Oral Oral Pulse Rate 107 H 97 97 Respiratory Rate 16 18 18 Blood Pressure 143/74 H 112/73 113/74 Blood Pressure Mean 97 86 87 Blood Pressure Source Monitor Monitor Blood Pressure Position Supine Supine Blood Pressure Location Right Arm Right Arm Pulse Ox 98 96 97 Oxygen Delivery Method Room Air Room Air Room Air 01/11/21 20:12 Temperature 98.6 F Temperature Source Oral Pulse Rate 97 Respiratory Rate 18 Blood Pressure 113/74 Blood Pressure Mean 87 Blood Pressure Source Blood Pressure Position Blood Pressure Location Pulse Ox 97 Oxygen Delivery Method Room Air Physical Exam Narrative Alert and oriented x3 Nontraumatic; normocephalic Lung clear to auscultate Heart sounds S1-S2. No murmur, gallop or rubs. Abdomen bowel sounds present soft, nontender nondistended Extremity without edema cyanosis or clubbing. Lab / Micro Data Result Diagrams: 01/11/21 18:05 01/11/21 18:05 Labs: Laboratory Results - last 24 hr 01/11/21 01/11/21 01/11/21 17:55 17:55 18:05 WBC RBC Hgb Hct MCV MCH MCHC RDW Std Deviation RDW Coeff of Pablo Plt Count MPV Immature Gran % (Auto) Neut % (Auto) Lymph % (Auto) [place] % (Auto) Eos % (Auto) Baso % (Auto) Absolute Neuts (auto) Absolute Lymphs (auto) Nucleated RBC % PT 15.1 H INR 1.3 Sodium Potassium Chloride Carbon Dioxide Anion Gap BUN Creatinine Estim Creat Clear Calc Est GFR (MDRD) Af Amer Est GFR (MDRD) Non-Af BUN/Creatinine Ratio Glucose Calcium Total Bilirubin AST ALT Alkaline Phosphatase Total Protein Albumin Globulin Albumin/Globulin Ratio Lipase Blood Type B POSITIVE Antibody Screen NEGATIVE Crossmatch See Detail 01/11/21 01/11/21 18:05 18:05 WBC 12.8 H RBC 2.00 L Hgb 7.2 L Hct 21.6 L MCV 108.0 H MCH 36.0 H MCHC 33.3 RDW Std Deviation 62.8 H RDW Coeff of Pablo 16.3 H Plt Count 401 MPV 9.6 Immature Gran % (Auto) 0.500 Neut % (Auto) 77.0 H Lymph % (Auto) 11.[address] [place] % (Auto) 8.1 Eos % (Auto) 2.4 Baso % (Auto) 0.5 Absolute Neuts (auto) 9.8 H Absolute Lymphs (auto) 1.47 Nucleated RBC % 0 PT INR Sodium 140 Potassium 3.4 L Chloride 109 H Carbon Dioxide 24.0 Anion Gap 7 BUN 43 H Creatinine 2.20 H Estim Creat Clear Calc 26.34 Est GFR (MDRD) Af Amer 37 L Est GFR (MDRD) Non-Af 31 L BUN/Creatinine Ratio 19.5 Glucose 120 H Calcium 8.4 L Total Bilirubin 0.50 AST 57 H ALT 84 H Alkaline Phosphatase 70 Total Protein 6.8 Albumin 3.0 L Globulin 3.8 Albumin/Globulin Ratio 0.8 L Lipase 102 Blood Type Antibody Screen Crossmatch Assessment & Plan Assessment/Plan (1) Acute blood loss anemia: (2) Stage 3b chronic kidney disease: (3) FE (acute kidney injury): PLAN: Acute Blood Loss Anema Review of medical department labs showed hemoglobin was 7.2. His hemoglobin 3 days ago was 8.5 and 5 days ago was 9.2. His hemoglobin on 12/09/2020 was 13.2. BUN is 43. His BUN about 3 weeks ago was 27. Hold home warfarin and aspirin. Received Protonix IV at emergency department. Protonix 40 mg IV twice daily ordered. N.p.o. after midnight ordered. General surgery consult. Stool for guaiac ordered. Patient was typed and crossed in the ED for 4 units of blood and 2 units ordered to be transfused. Nurse communication to check H&H 1 hour after second unit of blood has been transfused. FE on CKD stage IIIb His creatinine presentation was 2.20. His creatinine about 3 weeks ago was 1.74. His creatinine baseline is erratic from 1.74 to about 2.1. 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 2 units of blood ordered to be transferred to the emergency department. Trend BMP Paroxysmal atrial fibrillation In sinus rhythm. Amiodarone continued. Cardizem continued with parameters. Reportedly recently Coumadin dose was decreased because INR was supratherapeutic. On presentation INR is 1.3. Hold Coumadin secondary to acute blood loss anemia. Trend INR. Hypertension Blood pressure is stable in regard to his age. Lisinopril; hydralazine and Imdur held in the setting of GI bleed. Metoprolol and Cardizem continued. Trend BP and adjust BP meds DVT SCD ordered.
[2021-01-11] MEDS: Metoprolol Tartrate 25 MG Tablet 12.5 MG PO (22:25)
[2021-01-11] MEDS: 0.9% Normal Saline 1,000 ML 100 ML IV (22:26)
[2021-01-12] VITALS (14 sets, daily range): BP systolic 118–136; BP diastolic 75–93; PULSE 74–113; RESP 16–18; TEMP 36.3–36.9; O2SAT 92–96; BMI 23.3
[2021-01-12] MEDS: Acetaminophen 325 MG Tablet 650 MG PO (00:25)
[2021-01-12 04:10] LABS: Hematocrit 25.9 % (40-54); Hemoglobin 8.5 g/dL (13.0-16.5)
[2021-01-12 04:19] LABS: International Normalized Ratio 1.4; Prothrombin Time (Protime)PT. 16.5 SECONDS (11.7-14.9)
[2021-01-12 04:25] LABS: Anion Gap 4 (5-15); BUN 35 mg/dL (7-18); BUN/Creat Ratio 19.1 RATIO (10-20); Calcium,Total 7.6 mg/dL (8.5-10.1); Chloride 111 mmol/L (98-107); Creatinine, Serum 1.83 mg/dL (0.70-1.30); EST Glomerular Filtration Rate 38 mL/min (>60); Est Glom Filt Rate - Afr Amer 46 mL/min (>60); Estimated Creatinine Clearance 31.67 ml/min; Glucose 91 mg/dL (74-106); Potassium 3.9 mmol/L (3.5-5.1); Sodium Level 142 mmol/L (136-145)
[2021-01-12 08:15] LABS: Hematocrit 26.1 % (40-54); Hemoglobin 8.5 g/dL (13.0-16.5)
[2021-01-12] MEDS: Metoprolol Tartrate 25 MG Tablet 12.5 MG PO ×2 (09:45→21:27)
[2021-01-12] MEDS: Finasteride 5 MG Tablet PO (09:45)
[2021-01-12] MEDS: dilTIAZem CD 120 MG Capsule PO (09:45)
[2021-01-12] MEDS: Ensure Clear 120 ML Liquid PO ×3 (09:54→18:07)
--- NOTE | 2021-01-12 10:24 | EX.PCM.CON.S ---
Assessment & Plan Assessment/Plan (1) Acute anemia: (2) Acute gastrointestinal bleeding: (3) Epigastric abdominal pain: PLAN: My plan is to perform an upper and lower endoscopy on this patient. He has had a previous colonoscopy which showed polyps and he is overdue for that. He has had well-known problems with GI blood loss and with his discomfort in the epigastric area I think it is wylie that we ascertain if there is anything actively going on in his stomach. Risk benefits of the procedure to include bleeding possible injury to the intestines which could require further surgeries have been reviewed. Patient also understands with modified anesthesia blood clots heart attacks pneumonia strokes up to including are possible. (4) History of colon polyps: HPI Consult Data Date of Consult: 01/12/21 HPI Narrative HPI Narrative: RICHIE HANSEN, is a 80 M who presents a significant history of CAD status post stent; GI bleed; hypertension; paroxysmal A. fib on Coumadin who presents to the emergency department with a 2-week history of persistent black stools and bright red blood per rectum. Associated with his symptoms is acid reflux and lower abdominal cramps. Further patient has lightheadedness and weakness. Emergency department doctor reports minimal but gross normal stool on rectal examination. Stool was too small to guaiac. Patient has had previous endoscopic procedures. Back in 2012 he had a capsule endoscopy which was negative other than showing some fundic gland polyps in his stomach. In 2009 he had a laparoscopic Zenaida fundoplication. In 2012 he had a redo upper endoscopy with Johnson pH probe. This showed that his wrap was intact. During this time of his work-up he had extensive problems with GI blood loss. [facility] Medical History Atherosclerotic heart disease of [place] coronary artery without angina pectoris Atrial fibrillation BPH (benign prostatic hyperplasia) Cancer Chronic kidney disease Coronary artery disease CPAP (continuous positive airway pressure) dependence Essential (primary) hypertension GERD (gastroesophageal reflux disease) GI bleed (2012) History of electrophysiologic study (08/08/00) History of hyperthyroidism HLD (hyperlipidemia) Hypertension Kidney disease Kidney stones Myocardial infarct Non-rheumatic tricuspid valve insufficiency Non-smoker Old myocardial infarction Paroxysmal atrial fibrillation Secondary pulmonary arterial hypertension Home Medications finasteride 5 mg tablet 5 mg PO DAILY tab 06/03/20 [History Last Taken 12/09/20] warfarin 4 mg tablet 4 mg PO DAILY tab 06/03/20 [History Last Taken 12/08/20] isosorbide mononitrate 30 mg tablet,extended release 24 hr 30 mg PO DINNER 10/27/20 [History Last Taken 12/08/20] metoprolol tartrate 25 mg tablet 12.5 mg PO BID tab 10/27/20 [History Last Taken 12/09/20] pyridoxine (vitamin B6) 50 mg tablet 50 mg PO DAILY 10/27/20 [History Last Taken 12/08/20] amiodarone 200 mg PO DAILY 12/09/20 [History Last Taken 12/09/20] aspirin 81 mg PO DAILY@0800 12/09/20 [History Last Taken 12/09/20] calcium carbonate-vitamin D3 1 tablet PO DAILY 12/09/20 [History Last Taken 12/08/20] denosumab 60 mg SQ .[id number] 12/09/20 [History Last Taken 12/05/20] naufdhghiej-F2-Fmgmvntka serr 1 tablet PO BID 12/09/20 [History Last Taken 2 Days Ago ~12/07/20] lisinopril 10 mg PO BID 12/09/20 [History Last Taken 12/09/20] sodium chloride 1 spray NASAL Q6H PRN 12/09/20 [History Last Taken 12/08/20] vitamin B complex 1 cap PO BID 12/09/20 [History Last Taken 12/09/20] meclizine 12.5 mg PO TID PRN PRN #20 tablet 12/10/20 [Rx Last Taken Unknown] nitroglycerin 0.4 mg sublingual tablet 0.4 mg SL Q5-15M PRN #25 tablet 12/15/20 [Rx Last Taken Unknown] diltiazem HCl 120 mg capsule,24 hr,extended release 120 mg PO DAILY #30 cap 12/30/20 [Rx Last Taken Unknown] hydralazine 25 mg tablet 25 mg PO TID tab 12/30/20 [History Last Taken Unknown] Allergy/AdvReac Type Severity Reaction Status Date / Time prednisone Allergy Rash Verified 01/11/21 17:45 diclofenac AdvReac rash Verified 01/11/21 17:45 Family History Father Cancer Prostate cancer Mother Hypertension Sister Hypertension Surgical History History of back surgery History of cardioversion (06/18/19) History of coronary artery stent placement (08/04/00) History of hemorrhoidectomy History of hernia repair History of left heart catheterization (07/17/12) History of Zenaida fundoplication History of radiofrequency ablation procedure for cardiac arrhythmia (11/11/11) Social History Smoking Status: Never smoker alcohol intake: never substance use type: does not use caffeine: No ROS Constitutional Constitutional: Reports fatigue; Denies chills Respiratory/Chest Respiratory/Chest: Denies cough or dyspnea Gastrointestinal Gastrointestinal: Reports abdominal pain, melena and rectal bleeding Physical Exam Const alert and oriented x3 General Appearance: cooperative Eyes PERRL and EOMs intact bilaterally Resp normal respiratory effort and clear to auscultation bilaterally Cardio Rhythm: regular rhythm GI normal to inspection, nondistended, normoactive bowel sounds, soft to palpation and non-tender Lab / Micro Data Result Diagrams: 01/12/21 08:05 01/12/21 03:50 Labs: Laboratory Results - last 24 hr 01/11/21 01/11/21 01/11/21 17:55 17:55 18:05 WBC RBC Hgb Hct MCV MCH MCHC RDW Std Deviation RDW Coeff of Pablo Plt Count MPV Immature Gran % (Auto) Neut % (Auto) Lymph % (Auto) [place] % (Auto) Eos % (Auto) Baso % (Auto) Absolute Neuts (auto) Absolute Lymphs (auto) Nucleated RBC % PT 15.1 H INR 1.3 Sodium Potassium Chloride Carbon Dioxide Anion Gap BUN Creatinine Estim Creat Clear Calc Est GFR (MDRD) Af Amer Est GFR (MDRD) Non-Af BUN/Creatinine Ratio Glucose Calcium Total Bilirubin AST ALT Alkaline Phosphatase Total Protein Albumin Globulin Albumin/Globulin Ratio Lipase Blood Type B POSITIVE Antibody Screen NEGATIVE Crossmatch See Detail 01/11/21 01/11/21 01/12/21 18:05 18:05 03:50 WBC 12.8 H RBC 2.00 L Hgb 7.2 L Hct 21.6 L MCV 108.0 H MCH 36.0 H MCHC 33.3 RDW Std Deviation 62.8 H RDW Coeff of Pablo 16.3 H Plt Count 401 MPV 9.6 Immature Gran % (Auto) 0.500 Neut % (Auto) 77.0 H Lymph % (Auto) 11.5 L [place] % (Auto) 8.1 Eos % (Auto) 2.4 Baso % (Auto) 0.5 Absolute Neuts (auto) 9.8 H Absolute Lymphs (auto) 1.47 Nucleated RBC % 0 PT 16.5 H INR 1.4 Sodium 140 Potassium 3.4 L Chloride 109 H Carbon Dioxide 24.0 Anion Gap 7 BUN 43 H Creatinine 2.20 H Estim Creat Clear Calc 26.34 Est GFR (MDRD) Af Amer 37 L Est GFR (MDRD) Non-Af 31 L BUN/Creatinine Ratio 19.5 Glucose 120 H Calcium 8.4 L Total Bilirubin 0.50 AST 57 H ALT 84 H Alkaline Phosphatase 70 Total Protein 6.8 Albumin 3.0 L Globulin 3.8 Albumin/Globulin Ratio 0.8 L Lipase 102 Blood Type Antibody Screen Crossmatch 01/12/21 01/12/21 01/12/21 03:50 03:50 08:05 WBC RBC Hgb 8.5 L 8.5 L Hct 25.9 L 26.1 L MCV MCH MCHC RDW Std Deviation RDW Coeff of Pablo Plt Count MPV Immature Gran % (Auto) Neut % (Auto) Lymph % (Auto) [place] % (Auto) Eos % (Auto) Baso % (Auto) Absolute Neuts (auto) Absolute Lymphs (auto) Nucleated RBC % PT INR Sodium 142 Potassium 3.9 Chloride 111 H Carbon Dioxide 27.0 Anion Gap 4 L BUN 35 H Creatinine 1.83 H Estim Creat Clear Calc 31.67 Est GFR (MDRD) Af Amer 46 L Est GFR (MDRD) Non-Af 38 L BUN/Creatinine Ratio 19.1 Glucose 91 Calcium 7.6 L Total Bilirubin AST ALT Alkaline Phosphatase Total Protein Albumin Globulin Albumin/Globulin Ratio Lipase Blood Type Antibody Screen Crossmatch
--- NOTE | 2021-01-12 10:26 | CASEMGMT ---
RADHA PORTER Assessment: Face to Face with pt for initial transition planning/care coordination assessment. RN GERMAN introduced self and role at [facility], pt voices understanding and consents to assessment. Pt is A/O x4 and answers all questions appropriately at this time. Pt sitting up in bed eating jello in no distress. Care providers, pharmacy, and demographics verified/updated. Admitting Dx: LES PCP: Amor Specialists: Jesse, cardio; Nephro but pt cannot remember name Preferred [facility]acy: [facility] Insurance: [employer] Prescription Benefit: yes LW/HPOA: Pt states he has a LW/DPOA. He is aware it is not on file. He reports his DPOA is Neelima Durant, sister in law. LNOK: Neelima Durant, sister in law; Olivia Dunn, sister Living Arrangements: Pt lives alone in a single story house with 2 steps to enter with a rail. Pt reports he is I in ADL's and denies concerns at home. Transportation: Pt drives self and denies concerns with transportation. DME/HHC/SNF: Pt reports he has a cane, walker and shower chair at home but does not use. Pt denies any previous HHC or SNF stays. Pt states no concerns with going home at time of dc. Pt states no further concerns/needs. CM to follow. Advised pt to ask CM if any further question/concerns/needs arise, voices understanding. Pt Goal: Home Plan: Home with family support.
--- NOTE | 2021-01-12 11:51 | PCM.PN.HOSP ---
Subjective Subjective Patient is a 80-year-old gentleman admitted to monitored bed with increasing generalized weakness after presenting with melenic stools and assessment of acute GI bleed made. Consultation placed to general surgery for endoscopic evaluation Objective Data Objective Data Vital Signs: Vital Signs Temp Pulse Resp BP Pulse Ox 98.4 F 81 18 132/83 H 92 01/12/21 08:20 01/12/21 11:00 01/12/21 08:20 01/12/21 09:45 01/12/21 08:20 Oxygen Delivery Method Room Air Weight: 69.8 kg Body Mass Index (BMI) 23.3 Intake & Output: Intake and Output for Last 24 Hours 01/10/21 01/11/21 01/12/21 23:59 23:59 23:59 Intake Total 749.17 / 749.17 510 / 510 Output Total 450 / 450 Balance 749.17 / 499.17 60 / 60 Lab / Micro Data Result Diagrams: 01/12/21 08:05 01/12/21 03:50 Labs: Laboratory Results - last 24 hr 01/11/21 01/11/21 01/11/21 17:55 17:55 18:05 WBC RBC Hgb Hct MCV MCH MCHC RDW Std Deviation RDW Coeff of Pablo Plt Count MPV Immature Gran % (Auto) Neut % (Auto) Lymph % (Auto) [place] % (Auto) Eos % (Auto) Baso % (Auto) Absolute Neuts (auto) Absolute Lymphs (auto) Nucleated RBC % PT 15.1 H INR 1.3 Sodium Potassium Chloride Carbon Dioxide Anion Gap BUN Creatinine Estim Creat Clear Calc Est GFR (MDRD) Af Amer Est GFR (MDRD) Non-Af BUN/Creatinine Ratio Glucose Calcium Total Bilirubin AST ALT Alkaline Phosphatase Total Protein Albumin Globulin Albumin/Globulin Ratio Lipase Blood Type B POSITIVE Antibody Screen NEGATIVE Crossmatch See Detail 01/11/21 01/11/21 01/12/21 18:05 18:05 03:50 WBC 12.8 H RBC 2.00 L Hgb 7.2 L Hct 21.6 L MCV 108.0 H MCH 36.0 H MCHC 33.3 RDW Std Deviation 62.8 H RDW Coeff of Pablo 16.3 H Plt Count 401 MPV 9.6 Immature Gran % (Auto) 0.500 Neut % (Auto) 77.0 H Lymph % (Auto) 11.5 L [place] % (Auto) 8.1 Eos % (Auto) 2.4 Baso % (Auto) 0.5 Absolute Neuts (auto) 9.8 H Absolute Lymphs (auto) 1.47 Nucleated RBC % 0 PT 16.5 H INR 1.4 Sodium 140 Potassium 3.4 L Chloride 109 H Carbon Dioxide 24.0 Anion Gap 7 BUN 43 H Creatinine 2.20 H Estim Creat Clear Calc 26.34 Est GFR (MDRD) Af Amer 37 L Est GFR (MDRD) Non-Af 31 L BUN/Creatinine Ratio 19.5 Glucose 120 H Calcium 8.4 L Total Bilirubin 0.50 AST 57 H ALT 84 H Alkaline Phosphatase 70 Total Protein 6.8 Albumin 3.0 L Globulin 3.8 Albumin/Globulin Ratio 0.8 L Lipase 102 Blood Type Antibody Screen Crossmatch 01/12/21 01/12/21 01/12/21 03:50 03:50 08:05 WBC RBC Hgb 8.5 L 8.5 L Hct 25.9 L 26.1 L MCV MCH MCHC RDW Std Deviation RDW Coeff of Pablo Plt Count MPV Immature Gran % (Auto) Neut % (Auto) Lymph % (Auto) [place] % (Auto) Eos % (Auto) Baso % (Auto) Absolute Neuts (auto) Absolute Lymphs (auto) Nucleated RBC % PT INR Sodium 142 Potassium 3.9 Chloride 111 H Carbon Dioxide 27.0 Anion Gap 4 L BUN 35 H Creatinine 1.83 H Estim Creat Clear Calc 31.67 Est GFR (MDRD) Af Amer 46 L Est GFR (MDRD) Non-Af 38 L BUN/Creatinine Ratio 19.1 Glucose 91 Calcium 7.6 L Total Bilirubin AST ALT Alkaline Phosphatase Total Protein Albumin Globulin Albumin/Globulin Ratio Lipase Blood Type Antibody Screen Crossmatch Micro: Microbiology 01/12/21 11:10 Interface Orders SARS-CoV-2 Antigen (Rapid) - Final Physical Exam Narrative GENERAL: cooperative HEENT: Atraumatic; EYES; Anicteric, Normal Conjunctiva NECK; supple, normal thyroid, RESPIRATORY: Diminished to auscultation CARDIOVASCULAR: Regular S1 S2, GI: soft, normoactive bowel sounds, : No Renal angle tenderness; EXTREMITIES: No edema, no clubbing, MUSCULOSKELETAL: no muscle waisting NEURO: Awake; no lateralizing signs. SKIN: No Rash PSYCH; Flat affect Assessment & Plan Assessment/Plan (1) Acute blood loss anemia: (2) Acute gastrointestinal bleeding: PLAN: Patient is a 80-year-old gentleman admitted to monitored bed with increasing generalized weakness after presenting with melenic stools and assessment of acute GI bleed made. Consultation placed to general surgery for endoscopic evaluation Acute GI bleed ?Suspected upper GI bleed. Patient is on both aspirin and warfarin held on admission. Admitted to monitored bed ordered H&H every 6 started on Protonix drip consultation placed to general surgery with plans for patient to undergo endoscopic evaluation in a.m. He apparently also has a history of colonic polyps and will also undergo colonoscopy at the same time 2. Paroxysmal A. fib ?Rate controlled on amiodarone patient presented in sinus rhythm. INR upon presentation was 1.3 Coumadin was held 3. Hypertension - Blood pressure controlled, home medications continued with dose adjustment as needed 4. BPH ?Patient is on finasteride 5. DVT prophylaxis ?Systemic prophylaxis contraindicated in view of patient presenting complaints Advance planning; did discuss with the patientregarding advanced directives as well as CODE STATUS. Did explain the various scenarios involved ( FULL CODE, DNR CCA, DNR CCA with no intubation, and DNR CC and what each meant) patient elected full code with CPR and intubation if needed ;order was placed. Time spent on discussion 18 minutes. Visit Charges Inpatient E&M: 57359 Subs Hosp L3 Multi Select Codes Hospitalists' Procedures Procedures: 11707 Advncd Care Plan 30 Min
[2021-01-12] MEDS: 0.9% Normal Saline 1,000 ML 100 ML IV ×2 (11:58→18:07)
[2021-01-12 14:19] LABS: Hematocrit 26.3 % (40-54); Hemoglobin 8.6 g/dL (13.0-16.5)
--- NOTE | 2021-01-12 15:28 | PCM.NTREPORT ---
Nutrition Therapy Report - History Nutrition Services has been consulted to:: Manage nutrient details of diet order Current diet / nutrition support order:: Clear Liquid diet. 120 ml ensure clear 4 times per day w/ medpass (480 calories/16 gm protein) - Anthropometric Measurements Height:: 5 ft 8 in Weight:: 69.8 kg Body Mass Index (BMI):: 23.3 - Relevant Labs Relevant Labs:: WBC 12.8 K/mm3 (4.4-11.0) H 01/11/21 18:05 RBC 2.00 M/mm3 (4.6-6.2) L 01/11/21 18:05 Hgb 8.6 g/dL (13.0-16.5) L 01/12/21 14:12 Hct 26.3 % (40-54) L 01/12/21 14:12 MCV 108.0 fL (80-94) H 01/11/21 18:05 MCH 36.0 pg (27.0-32.0) H 01/11/21 18:05 RDW Std Deviation 62.8 fl (35.1-43.9) H 01/11/21 18:05 RDW Coeff of Pablo 16.3 % (11.6-14.6) H 01/11/21 18:05 Neut % (Auto) 77.0 % (47-70) H 01/11/21 18:05 Lymph % (Auto) 11.5 % (19-41) L 01/11/21 18:05 Absolute Neuts (auto) 9.8 X10^3/uL (2.0-7.7) H 01/11/21 18:05 PT 16.5 SECONDS (11.7-14.9) H 01/12/21 03:50 Potassium 3.4 mmol/L (3.5-5.1) L 01/11/21 18:05 Chloride 111 mmol/L (98-107) H 01/12/21 03:50 Anion Gap 4 (5-15) L 01/12/21 03:50 BUN 35 mg/dL (7-18) H 01/12/21 03:50 Creatinine 1.83 mg/dL (0.70-1.30) H 01/12/21 03:50 Est GFR (MDRD) Af Amer 46 mL/min (>60) L 01/12/21 03:50 Est GFR (MDRD) Non-Af 38 mL/min (>60) L 01/12/21 03:50 Glucose 120 mg/dL (74-106) H 01/11/21 18:05 Calcium 7.6 mg/dL (8.5-10.1) L 01/12/21 03:50 AST 57 U/L (15-37) H 01/11/21 18:05 ALT 84 U/L (16-61) H 01/11/21 18:05 Albumin 3.0 g/dL (3.2-5.0) L 01/11/21 18:05 Albumin/Globulin Ratio 0.8 RATIO (0.9-2.4) L 01/11/21 18:05 - Assessment Food / Nutrition-Related History:: Pt reports typically good oral intake and appetite but, has been decreased x past 1-2 weeks due to abd pain and not feeling well. Denies any trouble chewing but, sometimes chokes on crumbly food items per pt. Pt is receiving ensure clear on medpass w/ clear liquid diet as ordered right now and accepting of ONS as needed. Pt reports UBW~156-160 lbs typically but, has been closer to ~158 lbs lately; calculated~3% wt loss x past 7-10 days per pt---wt loss is significant for malnutrition especially given decline in oral intake x past 1-2 weeks as well. Pt usually with good intake at meals until this acute illness which has decreased his appetite x past 1-2 weeks. Pt is agreeable to ONS as needed to optimize nutrition. Pt was NPO and advanced to clear liquids--pending upper/lower endoscopy and remains on clear liquids at this time. - Nutrition Diagnosis Problem / Etiology / Signs & Symptoms (PES):: Moderate pro/suki malnutrition in the context of acute illness related to altered GI function/abd pain/GI bleed as evidenced ~3% wt loss x past 1-2 weeks, inadequate oral intake meeting less than 50% estimated nutrition needs x past 1-2 weeks. Evidence of Malnutrition Exists:: Yes Moderate Protein Calorie Malnutrition:: Acute Illness - Nutrition Intervention Nutrition Prescription:: Estimated nutrition needs~6101-6689 calories (25 kcal/Kg +250 kcal) and ~70-85 gm pro (1-1.2 gm pro/Kg) per day. Estimated fluid needs~2780-8015 ml/day (27 ml/kg). - Food / Nutrient Delivery Interventions Summary of nutrition intervention:: Rec advance diet from clear liquids as medically able to Transitional with goal diet of Cardiac as tolerated. Will continue 120ml ensure clear w/ medpass until diet advanced to solids. Ensure enlive as diet advanced from clear liquids. Nutrition support ordered as / adjusted to:: none at this time Nutrition education provided?: Yes - MNT Monitoring Further MNT monitoring and evaluation required?: Yes MNT Follow-up in:: 3-5 days
[2021-01-12] MEDS: Electrolyte Solution/Peg's 4000 ML PO (15:50)
[2021-01-12] MEDS: Ondansetron 4 MG/2 ML Vial IV ×2 (15:50→20:14)
[2021-01-12] MEDS: 0.9% Saline Lock 10 ML Syringe IV ×3 (15:50→20:14)
--- NOTE | 2021-01-12 15:53 | CASEMGMT ---
Pt screened with [facility] Palliative Care Screening Tool due to Strata 3, pt did not meet criteria.
--- NOTE | 2021-01-12 16:31 | NURSING ---
Report called to RADHA Iglesias for pt transfer to [facility].
[2021-01-12 20:04] LABS: Hemoglobin 9.6 g/dL (13.0-16.5)
[2021-01-13] VITALS (13 sets, daily range): BP systolic 82–136; BP diastolic 54–88; PULSE 82–99; RESP 16–18; TEMP 36.8–36.9; O2SAT 90–100
[2021-01-13] MEDS: 0.9% Normal Saline 1,000 ML 100 ML IV ×2 (04:08→14:23)
[2021-01-13 06:55] LABS: Absolute Neutrophil Count 8.4 X10^3/uL (2.0-7.7); Basophil# 0.06 X10^3/uL; Basophil% 0.5 % (0-1); Eosinophil# 0.52 X10^3/uL; Eosinophils% 4.6 % (0-5); Hematocrit 26.1 % (40-54); Hemoglobin 8.5 g/dL (13.0-16.5); Lymphocyte % 10.7 % (19-41); Mean Corp Hgb Conc 32.6 g/dL (32-36); Mean Corpuscular Hgb 32.7 pg (27.0-32.0); Mean Corpuscular Volume 100.4 fL (80-94); Mean Platelet Vol. 9.7 fl (6.2-12.0); Monocyte# 1.02 X10^3/uL; Monocyte% 9.1 % (0-10); NRBC Flagged by Analyzer 0 % (0-5); Neutrophil # 8.39 X10^3/uL (2.7-7.7); Neutrophil % 74.5 % (47-70); POSITIVE MORPHOLOGY YES; Platelet Count 337 K/mm3 (150-450); RBC Distribution Width SD 72.9 fl (35.1-43.9); White Blood Count 11.3 K/mm3 (4.4-11.0)
[2021-01-13 07:21] LABS: Differential Indicated SCAN CRITERIA MET
--- NOTE | 2021-01-13 07:25 | PN.HOSP_ITS ---
Subjective Subjective Undergoing preparation for endoscopic (both upper and lower) evaluation Objective Data Objective Data Vital Signs: Vital Signs Temp Pulse Resp BP Pulse Ox 98.3 F 84 16 122/72 H 94 01/13/21 04:09 01/13/21 04:09 01/13/21 04:09 01/13/21 04:09 01/13/21 04:09 Oxygen Delivery Method Room Air Weight: 69.8 kg Body Mass Index (BMI) 23.3 Intake & Output: Intake and Output for Last 24 Hours 01/11/21 01/12/21 01/13/21 23:59 23:59 23:59 Intake Total 749.17 / 749.17 2648.33 / 2648.33 4738.33 / 4738.33 Output Total 450 / 450 Balance 749.17 / 499.17 2198.33 / 2198.33 4738.33 / 4738.33 Lab / Micro Data Result Diagrams: 01/13/21 06:15 01/13/21 06:15 Labs: Laboratory Results - last 24 hr 01/12/21 01/12/21 01/12/21 08:05 14:12 19:58 WBC RBC Hgb 8.5 L 8.6 L 9.6 L Hct 26.1 L 26.3 L 30.0 L MCV MCH MCHC RDW Std Deviation RDW Coeff of Pablo Plt Count MPV Immature Gran % (Auto) Neut % (Auto) Lymph % (Auto) [place] % (Auto) Eos % (Auto) Baso % (Auto) Absolute Neuts (auto) Absolute Lymphs (auto) Nucleated RBC % 01/13/21 06:15 WBC 11.3 H RBC 2.60 L Hgb 8.5 L Hct 26.1 L MCV 100.4 H D MCH 32.7 H MCHC 32.6 RDW Std Deviation 72.9 H RDW Coeff of Pablo 20.0 H Plt Count 337 MPV 9.7 Immature Gran % (Auto) 0.600 Neut % (Auto) 74.5 H Lymph % (Auto) 10.7 L [place] % (Auto) 9.1 Eos % (Auto) 4.6 Baso % (Auto) 0.5 Absolute Neuts (auto) 8.4 H Absolute Lymphs (auto) 1.20 Nucleated RBC % 0 Micro: Microbiology 01/11/21 20:24 Stool Stool Occult Blood (AUBREE) - Final Occult Blood Positive 01/12/21 11:10 Interface Orders SARS-CoV-2 Antigen (Rapid) - Final Physical Exam Narrative GENERAL: cooperative HEENT: Atraumatic; EYES; Anicteric, Normal Conjunctiva NECK; supple, normal thyroid, RESPIRATORY: Diminished to auscultation CARDIOVASCULAR: Regular S1 S2, GI: soft, normoactive bowel sounds, : No Renal angle tenderness; EXTREMITIES: No edema, no clubbing, MUSCULOSKELETAL: no muscle waisting NEURO: Awake; no lateralizing signs. SKIN: No Rash PSYCH; Flat affect Assessment & Plan Assessment/Plan (1) Acute blood loss anemia: (2) Acute gastrointestinal bleeding: PLAN: Patient is a 80-year-old gentleman admitted to monitored bed with increasing generalized weakness after presenting with melenic stools and assessment of acute GI bleed made. Consultation placed to general surgery for endoscopic evaluation 1. Acute GI bleed ?Suspected upper GI bleed. Patient is on both aspirin and warfarin held on admission. Admitted to monitored bed ordered H&H every 6 started on Protonix d rip consultation placed to general surgery with plans for patient to undergo endoscopic evaluation in a.m. He apparently also has a history of colonic polyps and will also undergo colonoscopy at the same time -01/13/2021; patient scheduled to undergo endoscopic evaluation 2. Paroxysmal A. fib ?Rate controlled on amiodarone patient presented in sinus rhythm. INR upon presentation was 1.3 Coumadin was held 3. Hypertension - Blood pressure controlled, home medications continued with dose adjustment as needed 4. BPH ?Patient is on finasteride 5. DVT prophylaxis ?Systemic prophylaxis contraindicated in view of patient presenting complaints Visit Charges Inpatient E&M: 45515 Subs Hosp L2
[2021-01-13 07:26] LABS: Anion Gap 6 (5-15); BUN 22 mg/dL (7-18); BUN/Creat Ratio 14.5 RATIO (10-20); Calcium,Total 7.3 mg/dL (8.5-10.1); Chloride 111 mmol/L (98-107); Creatinine, Serum 1.52 mg/dL (0.70-1.30); EST Glomerular Filtration Rate 47 mL/min (>60); Est Glom Filt Rate - Afr Amer 57 mL/min (>60); Estimated Creatinine Clearance 38.13 ml/min; Glucose 84 mg/dL (74-106); Magnesium 1.8 mg/dL (1.6-2.6); Potassium 3.4 mmol/L (3.5-5.1); Sodium Level 142 mmol/L (136-145)
[2021-01-13] MEDS: Lactated Ringers 1,000 ML 100 ML IV (11:44)
--- NOTE | 2021-01-13 12:00 | IMM_PTH ---
PATIENT: RICHIE HANSEN LOC: [facility] U#:[id number] AGE/SX: 80/M ROOM: HI317 RE01/11/[address]: Dr. Melvin Gurrola MD : 1940 BED: 1 DIS: 01/14/2021 SPEC #: [id number] RECD: 01/14/21 10:32 STATUS: SOUGera REQ #: [id number] BARRIE: 01/13/21 12:[address]: Venkat Ridley DEPT: IMMUNOHISTOCHEMISTRY RECD BY: Nilsa Haji ENTERED: 01/14/21 10:32 SP TYPE: IMMUNO OTHR DR: MD Dr. César Hollingsworth MD Dr. Joseph Agyepong, MD Tissues: Stomach, NOS Procedures: H Pylori (initial) PHYSICIAN & INSTITUTION [place] [address] SPECIMEN INFORMATION: Tissue Source: Antrum biopsy Clinical Info: Acute blood loss anemia, acute GI bleeding Specimen Number: [id number] CPT code: 07387 METHODOLOGY: Deparaffinized sections of prefer/formalin-fixed tissue or PAP/DQ stained slides are incubated with monoclonal/polyclonal antibodies/oligonucleotide probes. Localization is made via biotin free immunoperoxidase method. Appropriate controls are performed and reacted as expected. Results on target cell population are indicated in the following table: RESULTS: ANTIBODY / CLONE RESULT H Pylori (polyclonal) negative These tests were developed and their performance characteristics determined by [facility]. They may not have been cleared or approved by the U.[place]. Food and Drug Administration. The FDA has determined that such clearance or approval is not necessary. INTERPRETATION: Antrum biopsy: Negative for Helicobacter pylori organisms. AM:tracy 01/15/2021
--- NOTE | 2021-01-13 12:00 | EGD_PTH ---
PATIENT: RICHIE HANSEN LOC: MS3 U#:[id number] AGE/SX: 80/M ROOM: [facility] RE01/11/[address]: Dr. Melvin Gurrola MD : 1940 BED: 1 DIS: 01/14/2021 SPEC #: [id number] RECD: 01/13/21 14:29 STATUS: RADHA REQ #: [id number] BARRIE: 01/13/21 12:[address]: Venkat Ridley DEPT: SURGICAL PATHOLOGY RECD BY: Leanna Rivera ENTERED: 01/14/21 09:41 SP TYPE: EGD BIOPSY OTHR DR: MD Dr. Venkat Hollingsworth MD Dr. Eric Smith, MD Dr. Joseph Agyepong, MD Tissues: Gastric mucous membrane Procedures: Surgery Specimen Level IV Comments: @ Ordering doctor for SUIV edited from to @ by SAMAN at 01/14/21 1030 @ Submitting doctor edited from to @ by SAMAN at 01/14/21 1030 HEADER OPERATION: [place], [place] DIAGNOSIS: Acute blood loss anemia; acute GI bleeding TISSUE SUBMITTED: Antrum biopsy for histo and H. pylori MICROSCOPIC DIAGNOSIS Gastric antrum, biopsy: Chronic gastritis. See comment. AM:tracy 01/15/2021 COMMENT The results of immunohistochemistry for Helicobacter pylori will be reported separately ([id number]). MICROSCOPIC DESCRIPTION Slides are reviewed. GROSS DESCRIPTION Received in fixative is one container labeled with the patient's name and designated antrum biopsy. The specimen consists of one irregular fragment of light ludwig soft tissue that measures 0.6 x 0.2 x 0.1 cm. The specimen is totally submitted in one cassette. / SJ:tracy 01/14/21 TC:3 CPT: 85601
--- NOTE | 2021-01-13 13:52 | OP.CCLET_ITS ---
01/13/2021 César Chinchilla [address] [place] [address] Re : Upper GI endoscopy procedure for Balbir Mckeon Dear Dr. Chinchilla This procedure was performed on Wednesday, January 13, 2021. My impressions and recommendations are as follows: Impressions : - Normal esophagus. - Normal stomach. Biopsied. - Normal examined duodenum. No specimens collected. Recommendations : - [facility]. - Advance diet as tolerated. - Continue present medications. - Await pathology results. - Repeat upper endoscopy PRN for surveillance. - Return to primary care physician in 1 week. My findings are described in the full procedure note, which is enclosed. If I can be of further assistance, please feel free to contact me at Doctor phone number(s): , Fax: [phone], Work: . Sincerely, MD Venkat Dorado MD 01/13/2021 1:09:03 PM This report has been signed electronically.
--- NOTE | 2021-01-13 13:52 | OP.EGD_ITS ---
Patient Name: Balbir Mckeon Procedure Date: 01/13/2021 11:22 AM Date of : 1940 Age: 80 Procedure: Upper GI endoscopy Indications: Epigastric abdominal pain, Acute post hemorrhagic anemia, Melena Providers: Venkat Ridley MD Medicines: See the Anesthesia note for documentation of the administered medications Patient Profile: This is a 80 year old male. Refer to note in patient chart for documentation of history and physical. Complications: No immediate complications. Procedure: Pre-Anesthesia Assessment: - Prior to the procedure, a History and Physical was performed, and patient medications and allergies were reviewed. The patient's tolerance of previous anesthesia was also reviewed. The risks and benefits of the procedure and the sedation options and risks were discussed with the patient. All questions were answered, and informed consent was obtained. Prior Anticoagulants: The patient has taken Coumadin (warfarin), last dose was 3 days prior to procedure. ASA Grade Assessment: III - A patient with severe systemic disease. After reviewing the risks and benefits, the patient was deemed in satisfactory condition to undergo the procedure. After obtaining informed consent, the endoscope was passed under direct vision. Throughout the procedure, the patient's blood pressure, pulse, and oxygen saturations were monitored continuously. The gastroscope was introduced through the mouth, and advanced to the second part of duodenum. The upper GI endoscopy was accomplished without difficulty. The patient tolerated the procedure well. Scope In: 12:28:05 PM Scope Out: 12:31:18 PM Total Procedure Duration Time 0 hours 3 minutes 13 seconds Findings: The examined esophagus was normal. The entire examined stomach was normal. Biopsies were taken with a cold forceps for Helicobacter pylori testing. The examined duodenum was normal. No biopsies or other specimens were collected for this exam. Impression: - Normal esophagus. - Normal stomach. Biopsied. - Normal examined duodenum. No specimens collected. Recommendation: - [facility] patient to [facility]. - Advance diet as tolerated. - Continue present medications. - Await pathology results. - Repeat upper endoscopy PRN for surveillance. - Return to primary care physician in 1 week. Procedure Code(s): --- Professional --- 37565, Esophagogastroduodenoscopy, flexible, transoral; with biopsy, single or multiple Diagnosis Code(s): --- Professional --- R10.13, Epigastric pain D62, Acute posthemorrhagic anemia K92.1, Melena (includes Hematochezia) CPT copyright 2017 [employer] [place] [employer]. All rights reserved. The codes documented in this report are preliminary and upon auditing coder review may be revised to meet current compliance requirements. MD Venkat Dorado MD 01/13/2021 1:09:03 PM This report has been signed electronically. Number of Addenda: 0 Note Initiated On: 01/13/2021 11:22 AM
--- NOTE | 2021-01-13 13:53 | OP.CCLET_ITS ---
01/13/2021 César Chinchilla [address] [place] [address] Re : Colonoscopy procedure for Balbir Mckeon Dear Dr. Chinchilla This procedure was performed on Wednesday, January 13, 2021. My impressions and recommendations are as follows: Impressions : - Preparation of the colon was poor. - Diverticulosis in the sigmoid colon, in the descending colon, at the splenic flexure and in the ascending colon. No specimens collected. - The examination was otherwise normal. Recommendations : - [facility] patient to [facility]. - Advance diet as tolerated. - Continue present medications. - Repeat colonoscopy in 10 years for screening purposes. - Return to primary care physician in 1 week. My findings are described in the full procedure note, which is enclosed. If I can be of further assistance, please feel free to contact me at Doctor phone number(s): , Fax: [phone], Work: . Sincerely, MD Venkat Dorado MD 01/13/2021 1:12:26 PM This report has been signed electronically.
--- NOTE | 2021-01-13 13:53 | OP.COLON_ITS ---
Patient Name: Balbir Mckeon Procedure Date: 01/13/2021 12:32 PM Date of : 1940 Age: 80 Procedure: Colonoscopy Indications: Epigastric abdominal pain, Melena, Acute post hemorrhagic anemia Providers: Venkat Ridley MD Medicines: See the Anesthesia note for documentation of the administered medications Patient Profile: This is a 80 year old male. Refer to note in patient chart for documentation of history and physical. Last Colonoscopy: several years ago. Complications: No immediate complications. Procedure: Pre-Anesthesia Assessment: - Prior to the procedure, a History and Physical was performed, and patient medications and allergies were reviewed. The patient's tolerance of previous anesthesia was also reviewed. The risks and benefits of the procedure and the sedation options and risks were discussed with the patient. All questions were answered, and informed consent was obtained. Prior Anticoagulants: The patient has taken Coumadin (warfarin), last dose was 3 days prior to procedure. ASA Grade Assessment: III - A patient with severe systemic disease. After reviewing the risks and benefits, the patient was deemed in satisfactory condition to undergo the procedure. - Prior to the procedure, a History and Physical was performed, and patient medications and allergies were reviewed. The patient's tolerance of previous anesthesia was also reviewed. The risks and benefits of the procedure and the sedation options and risks were discussed with the patient. All questions were answered, and informed consent was obtained. Prior Anticoagulants: The patient has taken Coumadin (warfarin), last dose was 3 days prior to procedure. ASA Grade Assessment: III - A patient with severe systemic disease. After reviewing the risks and benefits, the patient was deemed in satisfactory condition to undergo the procedure. After I obtained informed consent, the scope was passed under direct vision. Throughout the procedure, the patient's blood pressure, pulse, and oxygen saturations were monitored continuously. The colonoscope was introduced through the anus and advanced to the cecum, identified by appendiceal orifice and ileocecal valve. The colonoscopy was performed without difficulty. The patient tolerated the procedure well. The quality of the bowel preparation was poor. Scope In: 12:35:46 PM Scope Withdrawal Time 0 hours 6 minutes 21 seconds Scope Out: 12:55:19 PM Total Procedure Duration Time 0 hours 19 minutes 33 seconds Findings: Multiple small and large-mouthed diverticula were found in the sigmoid colon, descending colon, splenic flexure and ascending colon. No biopsies or other specimens were collected for this exam. Many of these diverticuli had old blood in them. I did not see anything that was actively bleeding. It is very difficult to say where his bleeding came from but it is probably from a diverticular source. That being said if he were to have any further bleeding he is more than likely need to be sent to a tertiary referral center because he may need to have a total abdominal colectomy. Patient has had problems with bleeding in the past has also had capsule endoscopy as well as numerous scopes with no identification of any obvious bleeding source. The exam was otherwise without abnormality. Impression: - Preparation of the colon was poor. - Diverticulosis in the sigmoid colon, in the descending colon, at the splenic flexure and in the ascending colon. No specimens collected. - The examination was otherwise normal. Recommendation: - [facility] to [facility]. - Advance diet as tolerated. - Continue present medications. - Repeat colonoscopy in 10 years for screening purposes. - Return to primary care physician in 1 week. Procedure Code(s): --- Professional --- 42150, Colonoscopy, flexible; diagnostic, including collection of specimen(s) by brushing or washing, when performed (separate procedure) Diagnosis Code(s): --- Professional --- R10.13, Epigastric pain K92.1, Melena (includes Hematochezia) D62, Acute posthemorrhagic anemia K57.30, Diverticulosis of large intestine without perforation or abscess without bleeding CPT copyright 2017 [employer]. All rights reserved. The codes documented in this report are preliminary and upon channel sales manager review may be revised to meet current compliance requirements. MD Venkat Dorado MD 01/13/2021 1:12:26 PM This report has been signed electronically. Number of Addenda: 0 Note Initiated On: 01/13/2021 12:32 PM
[2021-01-13] MEDS: Ensure Clear 120 ML Liquid PO ×2 (14:26→19:39)
[2021-01-13] MEDS: Metoprolol Tartrate 25 MG Tablet 12.5 MG PO (20:54)
[2021-01-13] MEDS: Mag Hydrox/Al Hydrox/Simeth 30 ML UDC PO (21:04)
[2021-01-14] MEDS: 0.9% Normal Saline 1,000 ML 100 ML IV (00:45)
[2021-01-14 00:46] VITALS: BP 116/71; PULSE 94; RESP 18; TEMP 37.2; O2SAT 95
[2021-01-14] MEDS: BENZOCAINE/MENTHOL 1 LOZENGE MUCOUS MEM ×2 (01:05→06:06)
[2021-01-14 06:25] LABS: Absolute Lymphocyte Count 0.88 X10^3/uL (0.83-4.51); Absolute Neutrophil Count 9.3 X10^3/uL (2.0-7.7); Basophil# 0.08 X10^3/uL; Basophil% 0.7 % (0-1); Eosinophils% 4.2 % (0-5); Hematocrit 24.5 % (40-54); Lymphocyte # 0.88 X10^3/ul (0.83-4.51); Lymphocyte % 7.4 % (19-41); Mean Corp Hgb Conc 32.7 g/dL (32-36); Mean Corpuscular Hgb 33.2 pg (27.0-32.0); Mean Corpuscular Volume 101.7 fL (80-94); Mean Platelet Vol. 9.3 fl (6.2-12.0); Monocyte# 1.09 X10^3/uL; Monocyte% 9.1 % (0-10); NRBC Flagged by Analyzer 0 % (0-5); Neutrophil # 9.33 X10^3/uL (2.7-7.7); Neutrophil % 78.2 % (47-70); POSITIVE MORPHOLOGY YES; Platelet Count 320 K/mm3 (150-450); RBC Distribution Width CV 19.9 % (11.6-14.6); Red Blood Count 2.41 M/mm3 (4.6-6.2); White Blood Count 11.9 K/mm3 (4.4-11.0)
[2021-01-14 06:29] LABS: Differential Indicated SCAN CRITERIA MET
[2021-01-14 06:46] LABS: Anion Gap 5 (5-15); BUN 14 mg/dL (7-18); BUN/Creat Ratio 9.2 RATIO (10-20); Calcium,Total 6.9 mg/dL (8.5-10.1); Chloride 113 mmol/L (98-107); Creatinine, Serum 1.53 mg/dL (0.70-1.30); EST Glomerular Filtration Rate 47 mL/min (>60); Est Glom Filt Rate - Afr Amer 57 mL/min (>60); Estimated Creatinine Clearance 37.88 ml/min; Glucose 93 mg/dL (74-106); Potassium 3.5 mmol/L (3.5-5.1); Sodium Level 142 mmol/L (136-145)
[2021-01-14 06:47] LABS: Hypochromasia RARE
[2021-01-14 07:53] VITALS: O2SAT 95
[2021-01-14] MEDS: Acetaminophen 325 MG Tablet 650 MG PO (07:56)
[2021-01-14 07:57] VITALS: BP 129/83; PULSE 91; RESP 18; TEMP 37.3; O2SAT 95
[2021-01-14] MEDS: Ondansetron 4 MG/2 ML Vial IV (07:57)
[2021-01-14] MEDS: 0.9% Saline Lock 10 ML Syringe IV (07:57)
--- NOTE | 2021-01-14 08:02 | PCM.DC ---
Discharge Instructions Diet Discharge Diet: No restrictions Activity Discharge Activity: Return to Normal Activity Follow Up Care Test Results: Test results from this visit will be discussed in further detail at your follow-up appointment, if applicable. Discharge Plan Admission Admit Date/Time: 01/11/21 20:08 Attending Provider: Melvin Gurrola Primary Care Provider: César Chinchilla Consulting Providers: Venkat Ridley Discharge Orders/Prescriptions Prescriptions: New pantoprazole [Protonix] 40 mg tablet,delayed release (DR/EC) 40 mg PO DAILY Qty: 90 RF: 0 Niferex (Sumalate-Quatrefolic) 150 mg iron- 60 mg-1 mg tablet 1 tab PO DAILY Qty: 90 RF: 0 senna 8.6 mg capsule 8.6 mg PO DAILY Qty: 30 RF: 0 Discontinued aspirin 81 MG tablet 81 mg PO DAILY@0800 RF: 0 No Action finasteride 5 mg tablet 5 mg PO DAILY RF: 0 warfarin 4 mg tablet 4 mg PO DAILY RF: 0 isosorbide mononitrate 30 mg tablet extended release 24 hr 30 mg PO DINNER RF: 0 pyridoxine (vitamin B6) 50 mg tablet 50 mg PO DAILY RF: 0 metoprolol tartrate 25 mg tablet 12.5 mg PO BID RF: 0 hydralazine 25 mg tablet 25 mg PO TID RF: 0 diltiazem HCl 120 mg capsule,extended release 24 hr 120 mg PO DAILY Qty: 30 RF: 11 lisinopril 10 MG tablet 10 mg PO BID RF: 0 vitamin B complex 1 EACH capsule 1 cap PO BID RF: 0 sodium chloride 30 ML aerosol,spray 1 spray NASAL Q6H PRN (Reason: Sinus Congestion) RF: 0 calcium carbonate-vitamin D3 1 EACH tablet 1 tablet PO DAILY RF: 0 denosumab 60 MG/ML syringe 60 mg SQ .[id number] RF: 0 itpczslebrl-X3-Crnevlpvi serr 1 EACH tablet 1 tablet PO BID RF: 0 amiodarone 200 MG tablet 200 mg PO DAILY RF: 0 meclizine 12.5 MG tablet 12.5 mg PO TID PRN PRN (Reason: Vertigo) Qty: 20 RF: 0 nitroglycerin 0.4 mg tablet, sublingual 0.4 mg SL Q5-15M PRN (Reason: chest pain) Qty: 25 RF: 3 Referrals / Follow Up: César Chinchilla MD [Primary Care Provider] - In 1 Week Disposition Disposition (needs filled in before D/C Order can be placed): Home, self care
[2021-01-14 09:15] VITALS: PULSE 96
[2021-01-14] MEDS: dilTIAZem CD 120 MG Capsule PO (09:15)
[2021-01-14] MEDS: Metoprolol Tartrate 25 MG Tablet 12.5 MG PO (09:15)
[2021-01-14] MEDS: Finasteride 5 MG Tablet PO (09:15)
--- NOTE | 2021-01-14 09:40 | DS.PCM_ITS ---
Providers Date of Admission: 01/11/21 Primary Care Physician: Dr. César Chinchilla MD Consultations 01/11/21 21:31 Consult: General Surgery Routine Consulting Provider: Venkat Ridley Reason for Consult: ABLA EMERGENT Consult: No MD Notified: Yes Date Notified:: 01/12/21 Time Notified: 08:12 Method of Notification: Text Reason For Visit: ABLA Diagnosis Discharge Diagnosis (1) Acute blood loss anemia: Status: Acute Code(s): D62 - Acute posthemorrhagic anemia (2) Acute gastrointestinal bleeding: Status: Acute Code(s): K92.2 - Gastrointestinal hemorrhage, unspecified Medications at Discharge Home Medications finasteride 5 mg tablet 5 mg PO DAILY tab 06/03/20 warfarin 4 mg tablet 4 mg PO DAILY tab 06/03/20 isosorbide mononitrate 30 mg tablet,extended release 24 hr 30 mg PO DINNER 10/27/20 metoprolol tartrate 25 mg tablet 12.5 mg PO BID tab 10/27/20 pyridoxine (vitamin B6) 50 mg tablet 50 mg PO DAILY 10/27/20 amiodarone 200 mg PO DAILY 12/09/20 calcium carbonate-vitamin D3 1 tablet PO DAILY 12/09/20 denosumab 60 mg SQ .[id number] 12/09/20 pbhaagvsgid-N9-Nbyraylxm serr 1 tablet PO BID 12/09/20 lisinopril 10 mg PO BID 12/09/20 sodium chloride 1 spray NASAL Q6H PRN 12/09/20 vitamin B complex 1 cap PO BID 12/09/20 meclizine 12.5 mg PO TID PRN PRN #20 tablet 12/10/20 nitroglycerin 0.4 mg sublingual tablet 0.4 mg SL Q5-15M PRN #25 tablet 12/15/20 diltiazem HCl 120 mg capsule,24 hr,extended release 120 mg PO DAILY #30 cap 12/30/20 hydralazine 25 mg tablet 25 mg PO TID tab 12/30/20 iron ag,[id number]-V-[id number]-Sm-ky-[id number] [Niferex (Sumalate-Quatrefolic)] 1 tab PO DAILY #90 tab 01/14/21 pantoprazole [Protonix] 40 mg PO DAILY #90 tab 01/14/21 sennosides [senna] 8.6 mg PO DAILY #30 cap 01/14/21 Hospital Course Summary of Care Provided Minutes Spent on Discharge: 35 Hospital Course: 1.? Acute GI bleed ?Suspected upper GI bleed.? Patient is on both aspirin and warfarin held on admission.? Admitted to monitored bed ordered H&H every 6 started on Protonix drip consultation placed to general surgery with plans for patient to undergo endoscopic evaluation in a.m.? He apparently also has a history of colonic polyps and will also undergo colonoscopy at the same time -01/13/2021; patient scheduled to undergo endoscopic evaluation Endoscopic findings ?EGD Impressions : - Normal esophagus. - Normal stomach.? Biopsied. - Normal examined duodenum.? No specimens collected. Colonoscopy impressions - Preparation of the colon was poor. - Diverticulosis in the sigmoid colon, in the descending colon, at the splenic ?flexure and in the ascending colon.? No specimens collected. - The examination was otherwise normal. Patient was discharged back on his warfarin aspirin was discontinued. Prescription was written for PPI 2.? Paroxysmal A. fib ?Rate controlled on amiodarone patient presented in sinus rhythm.? INR upon presentation was 1.3 Coumadin was held 3.? Hypertension - Blood pressure controlled, home medications continued with dose adjustment as needed 4.? BPH ?Patient is on finasteride 5.? DVT prophylaxis ?Systemic prophylaxis contraindicated in view of patient presenting complaints Physical Exam Const alert General Appearance: cooperative HEENT head/scalp atraumatic Eyes conjunctivae normal Resp normal respiratory effort and no use of accessory muscles Cardio regular rate and regular rhythm GI normal to inspection, nondistended, normoactive bowel sounds Extremity no clubbing, cyanosis or edema Neuro no focal motor deficits Sensorium / Orientation: oriented to person Psych affect normal ABG / Lab / Microbiology Data Result Diagrams: 01/14/21 06:10 01/14/21 06:10 Laboratory: Laboratory Results - last 24 hr 01/14/21 01/14/21 06:10 06:10 WBC 11.9 H RBC 2.41 L Hgb 8.0 L Hct 24.5 L MCV 101.7 H MCH 33.2 H MCHC 32.7 RDW Std Deviation 74.0 H RDW Coeff of Pablo 19.9 H Plt Count 320 MPV 9.3 Immature Gran % (Auto) 0.400 Neut % (Auto) 78.2 H Lymph % (Auto) 7.4 L [place] % (Auto) 9.1 Eos % (Auto) 4.2 Baso % (Auto) 0.7 Absolute Neuts (auto) 9.3 H Absolute Lymphs (auto) 0.88 Nucleated RBC % 0 Hypochromasia RARE Sodium 142 Potassium 3.5 Chloride 113 H Carbon Dioxide 24.0 Anion Gap 5 BUN 14 Creatinine 1.53 H Estim Creat Clear Calc 37.88 Est GFR (MDRD) Af Amer 57 L Est GFR (MDRD) Non-Af 47 L BUN/Creatinine Ratio 9.2 L Glucose 93 Calcium 6.9 L Microbiology: Microbiology 01/11/21 20:24 Stool Stool Occult Blood (AUBREE) - Final Occult Blood Positive 01/12/21 11:10 Interface Orders SARS-CoV-2 Antigen (Rapid) - Final D/C Instructions Discharge Diet: No restrictions Discharge Activity: Return to Normal Activity Meaningful Use Info Meaningful Use Diagnoses (Choose all that apply): None applicable Discharge Plan Admission Admit Date/Time: 01/11/21 20:08 Attending Provider: Melvin Gurrola Primary Care Provider: César Chinchilla Consulting Providers: Venkat Ridley Discharge Orders/Prescriptions Prescriptions: New pantoprazole [Protonix] 40 mg tablet,delayed release (DR/EC) 40 mg PO DAILY Qty: 90 RF: 0 Niferex (Sumalate-Quatrefolic) 150 mg iron- 60 mg-1 mg tablet 1 tab PO DAILY Qty: 90 RF: 0 senna 8.6 mg capsule 8.6 mg PO DAILY Qty: 30 RF: 0 Discontinued aspirin 81 MG tablet 81 mg PO DAILY@0800 RF: 0 No Action finasteride 5 mg tablet 5 mg PO DAILY RF: 0 warfarin 4 mg tablet 4 mg PO DAILY RF: 0 isosorbide mononitrate 30 mg tablet extended release 24 hr 30 mg PO DINNER RF: 0 pyridoxine (vitamin B6) 50 mg tablet 50 mg PO DAILY RF: 0 metoprolol tartrate 25 mg tablet 12.5 mg PO BID RF: 0 hydralazine 25 mg tablet 25 mg PO TID RF: 0 diltiazem HCl 120 mg capsule,extended release 24 hr 120 mg PO DAILY Qty: 30 RF: 11 lisinopril 10 MG tablet 10 mg PO BID RF: 0 vitamin B complex 1 EACH capsule 1 cap PO BID RF: 0 sodium chloride 30 ML aerosol,spray 1 spray NASAL Q6H PRN (Reason: Sinus Congestion) RF: 0 calcium carbonate-vitamin D3 1 EACH tablet 1 tablet PO DAILY RF: 0 denosumab 60 MG/ML syringe 60 mg SQ .[id number] RF: 0 guejiokkudp-Z4-Aoextknuj serr 1 EACH tablet 1 tablet PO BID RF: 0 amiodarone 200 MG tablet 200 mg PO DAILY RF: 0 meclizine 12.5 MG tablet 12.5 mg PO TID PRN PRN (Reason: Vertigo) Qty: 20 RF: 0 nitroglycerin 0.4 mg tablet, sublingual 0.4 mg SL Q5-15M PRN (Reason: chest pain) Qty: 25 RF: 3 Referrals / Follow Up: César Chinchilla MD [Primary Care Provider] - In 1 Week Disposition Disposition (needs filled in before D/C Order can be placed): Home, self care Visit Charges Inpatient E&M: 32892 Disch Hosp
[2021-01-14 10:21] VITALS: BP 134/85; PULSE 90; RESP 16; TEMP 37.2; O2SAT 92
--- NOTE | 2021-01-14 10:40 | PHA.DC.MC ---
Pharmacy Service has performed discharge medication reconciliation and counseling for this patient. 1. PANTOPRAZOLE 40MG PO DAILY 2. NIFEREX 150/60/1MG 1T PO DAILY 3. SENNA 8.6MG PO DAILY The patient's discharge medication list was reviewed for discrepancies and discrepancies were resolved. Home Medications finasteride 5 mg tablet 5 mg PO DAILY tab 06/03/20 warfarin 4 mg tablet 4 mg PO DAILY tab 06/03/20 isosorbide mononitrate 30 mg tablet,extended release 24 hr 30 mg PO DINNER 10/27/20 metoprolol tartrate 25 mg tablet 12.5 mg PO BID tab 10/27/20 pyridoxine (vitamin B6) 50 mg tablet 50 mg PO DAILY 10/27/20 amiodarone 200 mg PO DAILY 12/09/20 calcium carbonate-vitamin D3 1 tablet PO DAILY 12/09/20 denosumab 60 mg SQ .[id number] 12/09/20 vsfczusajto-S7-Ytoktalgy serr 1 tablet PO BID 12/09/20 lisinopril 10 mg PO BID 12/09/20 sodium chloride 1 spray NASAL Q6H PRN 12/09/20 vitamin B complex 1 cap PO BID 12/09/20 meclizine 12.5 mg PO TID PRN PRN #20 tablet 12/10/20 nitroglycerin 0.4 mg sublingual tablet 0.4 mg SL Q5-15M PRN #25 tablet 12/15/20 diltiazem HCl 120 mg capsule,24 hr,extended release 120 mg PO DAILY #30 cap 12/30/20 hydralazine 25 mg tablet 25 mg PO TID tab 12/30/20 iron ag,jo-L-[id number]-R82-Ys-vk-ycp [Niferex (Sumalate-Quatrefolic)] 1 tab PO DAILY #90 tab 01/14/21 pantoprazole [Protonix] 40 mg PO DAILY #90 tab 01/14/21 sennosides [senna] 8.6 mg PO DAILY #30 cap 01/14/21 The patient was counseled on the following discharge medications and changes in medications for homegoing were reviewed. The Reason for Use, instructions for use, and potential side effects were reviewed for all new medications. The patient's questions regarding all of their medications were answered. The patient was able to verbally demonstrate an understanding of their discharge medications. Patient counseled by septic tank installer
== END 2021-01-14 10:57 | disposition home or self-care (01) | DRG 378 ==
LOC: ED 18:22 → PCU 20:48 → MS3 01-12 20:36
PROVIDERS: Surgery; Admitting Provider Hospitalist; Emergency Provider Emergency Medicine; PCP Family Medicine; Visit Provider Internal Medicine
PROC: 0DJD8ZZ Inspection of Lower Intestinal Tract, Via Natural or Artificial Opening Endoscopic (ICD-10-PCS; CPT 45378; principal; 2021-01-13 11:55)
DX: K29.51 Unspecified chronic gastritis with bleeding (principal); D62 Acute posthemorrhagic anemia; N17.9 Acute kidney failure, unspecified; E44.0 Moderate protein-calorie malnutrition; K57.30 Diverticulosis of large intestine without perforation or abscess without bleeding; E78.5 Hyperlipidemia, unspecified; I12.9 Hypertensive chronic kidney disease with stage 1 through stage 4 chronic kidney disease, or unspecified chronic kidney disease; I25.10 Atherosclerotic heart disease of native coronary artery without angina pectoris; I25.2 Old myocardial infarction; I27.21 Secondary pulmonary arterial hypertension; I36.1 Nonrheumatic tricuspid (valve) insufficiency; I48.0 Paroxysmal atrial fibrillation; K21.9 Gastro-esophageal reflux disease without esophagitis; N18.32 Chronic kidney disease, stage 3b; G47.30 Sleep apnea, unspecified; N40.0 Benign prostatic hyperplasia without lower urinary tract symptoms; Z79.01 Long term (current) use of anticoagulants; Z79.82 Long term (current) use of aspirin; Z79.899 Other long term (current) drug therapy; Z85.46 Personal history of malignant neoplasm of prostate; Z87.19 Personal history of other diseases of the digestive system; Z95.5 Presence of coronary angioplasty implant and graft; Z86.010 Personal history of colon polyps; Z68.23 Body mass index [BMI] 23.0-23.9, adult; Z87.442 Personal history of urinary calculi
CPT/HCPCS: 36415; 80048; 80053; 82274; 83690; 83735; 85014; 85018; 85025; 85610; 86850; 86900; 86901; 86920; 86922; 87426; 88305; 88342; 93005; 97802; 99251; 99284; J7030; J7040; J7120; P9016; A4216; G0463; J2405

== ENCOUNTER → 2021-01-19 15:19 | Outpatient (CLI) | payer MEDICARE, OTHER, SELFPAY ==
[2021-01-12 15:31] VITALS: BMI 23.3
[2021-01-19 18:16] LABS: Hematocrit 28.4 % (40-54); Mean Corp Hgb Conc 31.7 g/dL (32-36); Mean Corpuscular Hgb 31.8 pg (27.0-32.0); Mean Corpuscular Volume 100.4 fL (80-94); Mean Platelet Vol. 9.5 fl (6.2-12.0); POSITIVE MORPHOLOGY YES; Platelet Count 519 K/mm3 (150-450); RBC Distribution Width CV 18.6 % (11.6-14.6); Red Blood Count 2.83 M/mm3 (4.6-6.2); White Blood Count 9.8 K/mm3 (4.4-11.0)
[2021-01-19 18:24] LABS: Scan Indicated on CBC? Y/N YES- FLAGS NOTED
[2021-01-19 18:29] LABS: Anion Gap 7 (5-15); BUN 23 mg/dL (7-18); BUN/Creat Ratio 12.4 RATIO (10-20); Calcium,Total 8.4 mg/dL (8.5-10.1); Chloride 109 mmol/L (98-107); Creatinine, Serum 1.85 mg/dL (0.70-1.30); EST Glomerular Filtration Rate 38 mL/min (>60); Est Glom Filt Rate - Afr Amer 46 mL/min (>60); Glucose 95 mg/dL (74-106); Potassium 3.5 mmol/L (3.5-5.1); Sodium Level 140 mmol/L (136-145)
== END ==
PROVIDERS: Nurse Practitioner Family; PCP Family Medicine; Visit Provider Family Medicine
DX: D62 Acute posthemorrhagic anemia (principal)
CPT/HCPCS: 36415; 80048; 85027

== ENCOUNTER 2021-01-20 14:24 | Inpatient (IN) | payer MEDICARE, OTHER, SELFPAY ==
[2021-01-12 15:31] VITALS: BMI 23.3
[2021-01-20] VITALS (10 sets, daily range): BP systolic 137–157; BP diastolic 77–94; PULSE 81–95; RESP 16–18; TEMP 36.8–37.3; O2SAT 91–97; BMI 23.2; BMI 24.4
--- NOTE | 2021-01-20 14:51 | EKG12_ITS ---
Test Reason : WEAKNESS Blood Pressure : / mmHG Vent. Rate : 082 BPM Atrial Rate : 182 BPM P-R Int : 000 ms QRS Dur : 102 ms QT Int : 408 ms P-R-T Axes : 000 019 014 degrees QTc Int : 476 ms Atrial tachycardia Abnormal ECG Confirmed by MARCE KASPER, ADAM ([id number]), development editor CIPRIANO GATES ([id number]) on 01/22/2021 11:20:29 AM Referred By: Confirmed By:ADAM ZHENG MD
--- NOTE | 2021-01-20 14:52 | EX.ED.DYSGE1 ---
HPI History of Present Illness Chief Complaint: Weakness Informant: patient Narrative Narrative: 80-year-old male presents to the emergency department for evaluation of weakness. He states that about 1 week ago he was admitted into the hospital with acute blood loss anemia he had endoscopy and colonoscopy no obvious source of bleeding was found. He states that since he is gone home is developed a cough and shortness of breath. He states that the past 2 days he started to eat again but he was not able to eat for a few days due to his weakness and pain in his throat from the endoscopy. He denies any syncope. He denies any current pain. He notes he had increased urination last night. He notes his stool appears normal. [facility] Medical History Atherosclerotic heart disease of [place] coronary artery without angina pectoris Atrial fibrillation BPH (benign prostatic hyperplasia) Cancer Chronic kidney disease Coronary artery disease CPAP (continuous positive airway pressure) dependence Essential (primary) hypertension GERD (gastroesophageal reflux disease) GI bleed (2012) History of electrophysiologic study (08/08/00) History of hyperthyroidism HLD (hyperlipidemia) Hypertension Kidney disease Kidney stones Myocardial infarct Non-rheumatic tricuspid valve insufficiency Non-smoker Old myocardial infarction Paroxysmal atrial fibrillation Secondary pulmonary arterial hypertension Home Medications finasteride 5 mg tablet 5 mg PO DAILY tab 06/03/20 [History Last Taken 12/09/20] warfarin 4 mg tablet 4 mg PO DAILY tab 06/03/20 [History Last Taken 12/08/20] isosorbide mononitrate 30 mg tablet,extended release 24 hr 30 mg PO DINNER 10/27/20 [History Last Taken 12/08/20] metoprolol tartrate 25 mg tablet 12.5 mg PO BID tab 10/27/20 [History Last Taken 12/09/20] pyridoxine (vitamin B6) 50 mg tablet 50 mg PO DAILY 10/27/20 [History Last Taken 12/08/20] amiodarone 200 mg PO DAILY 12/09/20 [History Last Taken 12/09/20] calcium carbonate-vitamin D3 1 tablet PO DAILY 12/09/20 [History Last Taken 12/08/20] denosumab 60 mg SQ .[id number] 12/09/20 [History Last Taken 12/05/20] [id number]-Kzayqdase serr 1 tablet PO BID 12/09/20 [History Last Taken 2 Days Ago ~12/07/20] lisinopril 10 mg PO BID 12/09/20 [History Last Taken 12/09/20] sodium chloride 1 spray NASAL Q6H PRN 12/09/20 [History Last Taken 12/08/20] vitamin B complex 1 cap PO BID 12/09/20 [History Last Taken 12/09/20] meclizine 12.5 mg PO TID PRN PRN #20 tablet 12/10/20 [Rx Last Taken Unknown] nitroglycerin 0.4 mg sublingual tablet 0.4 mg SL Q5-15M PRN #25 tablet 12/15/20 [Rx Last Taken Unknown] diltiazem HCl 120 mg capsule,24 hr,extended release 120 mg PO DAILY #30 cap 12/30/20 [Rx Last Taken Unknown] hydralazine 25 mg tablet 25 mg PO TID tab 12/30/20 [History Last Taken Unknown] iron ag,[id number] [Niferex (Sumalate-Quatrefolic)] 1 tab PO DAILY #90 tab 01/14/21 [Rx Last Taken Unknown] pantoprazole [Protonix] 40 mg PO DAILY #90 tab 01/14/21 [Rx Last Taken Unknown] sennosides [senna] 8.6 mg PO DAILY #30 cap 01/14/21 [Rx Last Taken Unknown] Allergy/AdvReac Type Severity Reaction Status Date / Time prednisone Allergy Rash Verified 01/20/21 14:27 diclofenac AdvReac rash Verified 01/20/21 14:27 Family History Father Cancer Prostate cancer Mother Hypertension Sister Hypertension Surgical History History of back surgery History of cardioversion (06/18/19) History of coronary artery stent placement (08/04/00) History of hemorrhoidectomy History of hernia repair History of left heart catheterization (07/17/12) History of Zenaida fundoplication History of radiofrequency ablation procedure for cardiac arrhythmia (11/11/11) Social History Smoking Status: Never smoker alcohol intake: never substance use type: does not use caffeine: No ROS ROS ED Constitutional Constitutional ED: Reports other Details: Global weakness ; Denies chills, fever(s) or weight loss Eyes Eyes: Denies change in vision or diplopia ENT ENT ED: Reports sore throat; Denies ear pain or rhinorrhea Cardiovascular Cardiovascular: Denies chest pain, orthopnea, palpitations or racing heartbeat Respiratory/Chest Respiratory/Chest: Reports cough and dyspnea; Denies orthopnea Gastrointestinal Gastrointestinal: Reports diarrhea; Denies abdominal pain, nausea or vomiting Genitourinary Genitourinary ED: Reports urinary frequency; Denies dysuria or hematuria Musculoskeletal Musculoskeletal: Denies arthralgias or myalgias Integumentary Denies abscess or rash Neurologic Neurologic: Reports weakness; Denies headache(s) Psychiatric Psychiatric: Denies anxiety, depression, suicidal ideation or suicidal thoughts Endocrine Endocrinology: Denies polydipsia, polyphagia or polyuria Allergic/Immunologic Allergic/Immunologic ED: Denies mouth swelling, tongue swelling or urticaria EXAM Physical Exam Const Vital Signs: 01/20/21 14:25 01/20/21 15:14 01/20/21 15:17 Temperature 99.1 F Temperature Source Temporal Pulse Rate 95 Pulse Rate [Lying] 81 Pulse Rate [Sitting] 92 Pulse Rate [Standing] 92 Respiratory Rate 16 Respiratory Effort Normal Non-Labored Respiratory Pattern Normal Blood Pressure 137/77 H Blood Pressure [Lying] 138/84 H Blood Pressure [Sitting] 140/91 H Blood Pressure [Standing] 152/83 H Blood Pressure Mean 97 Blood Pressure Mean [Lying] 102 Blood Pressure Mean [Sitting] 107 Blood Pressure Mean [Standing] 106 Pulse Ox 97 Oxygen Delivery Method Room Air Positive well nourished and well developed General Appearance ED: well developed HEENT Reports normocephalic, head/scalp atraumatic and moist mucous membranes Eyes PERRL and EOMs intact bilaterally Neck no lymphadenopathy, supple and no JVD Resp normal respiratory effort and clear to auscultation bilaterally Cardio regular rate, regular rhythm and no murmurs GI normal to inspection, nondistended, normoactive bowel sounds and non-tender Palpation: soft Back/Spine no CVA tenderness and normal ROM Extremity normal to inspection General Extremety ED: Negative for edema General Extremity: Negative for edema Neuro oriented x3 and CN's II-XII intact bilaterally Sensorium / Orientation: alert Motor Exam: strength 5/5 throughout Psych mental status grossly normal Mood & Affect: Negative for depressed or tearful Skin no rashes or lesions noted and no wounds MDM MDM MDM Narrative Medical decision making narrative: My interpretation of the single view chest x-ray is cardiomegaly with mild CHF. EKG is concerning for third-degree heart block. This was discussed with cardiology. He is therapeutic on his INR 2.6. Hemoglobin 8.5. Creatinine 1.86 which is chronic. Troponin negative. Plan will be admission into the hospital. We will hold his amiodarone, metoprolol, diltiazem, and Coumadin. Lab Data Attestation: I reviewed the patient's lab results. Labs: Laboratory Results - last 24 hr 01/20/21 01/20/21 01/20/21 15:03 15:03 15:03 WBC 9.5 RBC 2.64 L Hgb 8.5 L Hct 26.4 L MCV 100.0 H MCH 32.2 H MCHC 32.2 RDW Std Deviation 68.8 H RDW Coeff of Pablo 18.7 H Plt Count 469 H MPV 9.5 Immature Gran % (Auto) 0.500 Neut % (Auto) 77.1 H Lymph % (Auto) 8.6 L [place] % (Auto) 10.2 H Eos % (Auto) 2.7 Baso % (Auto) 0.9 Absolute Neuts (auto) 7.3 Absolute Lymphs (auto) 0.82 L Nucleated RBC % 0 Differential Comment SCANNED PT 27.0 H INR 2.6 APTT 53.0 H Sodium 139 Potassium 3.7 Chloride 111 H Carbon Dioxide 23.0 Anion Gap 5 BUN 20 H Creatinine 1.86 H Estim Creat Clear Calc 31.16 Est GFR (MDRD) Af Amer 45 L Est GFR (MDRD) Non-Af 37 L BUN/Creatinine Ratio 10.8 Glucose 101 Calcium 8.2 L Total Bilirubin 0.80 AST 44 H ALT 58 Alkaline Phosphatase 65 Troponin I < 0.015 Total Protein 6.7 Albumin 2.8 L Globulin 3.9 Albumin/Globulin Ratio 0.7 L Radiography Diagnostic Testing: Radiology Impression Chest X-Ray 01/20/21 15:18 IMPRESSION: Cardiomegaly. Mild degree of vascular congestion and CHF with bibasilar linear atelectasis. Electronically Signed: Wilfred Milligan MD at 15:46 EDT , Service support , EKG Initial EKG: Attestation: I personally reviewed and interpreted this EKG as follows: Comments: EKG shows third-degree heart block with a ventricular rate of 82 Critical Care Time Critical care time (excluding procedures): 30-74 minutes (35 min), Including time spent:, Discussing w/Patient &/or Family/Digital Composer, Discussing w/Consultants, Arranging Admission or Transfer and Performing Direct Patient Care at Bedside Discharge Plan Triage Chief Complaint: Weakness ED Provider: Venkat Gilmore Dx/Rx/DC Orders Clinical Impression: Stage 3b chronic kidney disease, 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, Third degree heart block Prescriptions: No Action finasteride 5 mg tablet 5 mg PO DAILY RF: 0 warfarin 4 mg tablet 4 mg PO DAILY RF: 0 isosorbide mononitrate 30 mg tablet extended release 24 hr 30 mg PO DINNER RF: 0 pyridoxine (vitamin B6) 50 mg tablet 50 mg PO DAILY RF: 0 metoprolol tartrate 25 mg tablet 12.5 mg PO BID RF: 0 hydralazine 25 mg tablet 25 mg PO TID RF: 0 diltiazem HCl 120 mg capsule,extended release 24 hr 120 mg PO DAILY Qty: 30 RF: 11 lisinopril 10 MG tablet 10 mg PO BID RF: 0 vitamin B complex 1 EACH capsule 1 cap PO BID RF: 0 sodium chloride 30 ML aerosol,spray 1 spray NASAL Q6H PRN (Reason: Sinus Congestion) RF: 0 calcium carbonate-vitamin D3 1 EACH tablet 1 tablet PO DAILY RF: 0 denosumab 60 MG/ML syringe 60 mg SQ .[id number] RF: 0 [id number]-C1-Lkcahgdzo serr 1 EACH tablet 1 tablet PO BID RF: 0 amiodarone 200 MG tablet 200 mg PO DAILY RF: 0 meclizine 12.5 MG tablet 12.5 mg PO TID PRN PRN (Reason: Vertigo) Qty: 20 RF: 0 pantoprazole [Protonix] 40 mg tablet,delayed release (DR/EC) 40 mg PO DAILY Qty: 90 RF: 0 Niferex (Sumalate-Quatrefolic) 150 mg iron- 60 mg-1 mg tablet 1 tab PO DAILY Qty: 90 RF: 0 senna 8.6 mg capsule 8.6 mg PO DAILY Qty: 30 RF: 0 nitroglycerin 0.4 mg tablet, sublingual 0.4 mg SL Q5-15M PRN (Reason: chest pain) Qty: 25 RF: 3 Primary Care Provider: César Chinchilla Referrals: César Chinchilla MD [Primary Care Provider] - Disposition Disposition: Acute Care Hospital [facility]
[2021-01-20 15:12] LABS: Absolute Lymphocyte Count 0.82 X10^3/uL (0.83-4.51); Absolute Neutrophil Count 7.3 X10^3/uL (2.0-7.7); Basophil# 0.09 X10^3/uL; Basophil% 0.9 % (0-1); Eosinophil# 0.26 X10^3/uL; Eosinophils% 2.7 % (0-5); Hematocrit 26.4 % (40-54); Hemoglobin 8.5 g/dL (13.0-16.5); Lymphocyte # 0.82 X10^3/ul (0.83-4.51); Lymphocyte % 8.6 % (19-41); Mean Corp Hgb Conc 32.2 g/dL (32-36); Mean Corpuscular Hgb 32.2 pg (27.0-32.0); Mean Platelet Vol. 9.5 fl (6.2-12.0); Monocyte# 0.97 X10^3/uL; Monocyte% 10.2 % (0-10); NRBC Flagged by Analyzer 0 % (0-5); Neutrophil % 77.1 % (47-70); POSITIVE MORPHOLOGY YES; Platelet Count 469 K/mm3 (150-450); RBC Distribution Width CV 18.7 % (11.6-14.6); RBC Distribution Width SD 68.8 fl (35.1-43.9); Red Blood Count 2.64 M/mm3 (4.6-6.2); White Blood Count 9.5 K/mm3 (4.4-11.0)
--- NOTE | 2021-01-20 15:18 | RAD_ITS ---
STUDY: X-RAY CHEST REASON FOR EXAM: Male, 80 years old. Dyspnea and weakness TECHNIQUE: Single AP portable view of the chest. COMPARISON: Comparison is made with prior study dated 12/09/2020. FINDINGS: EKG electrodes are seen. There is evidence of vascular congestion and a mild degree of CHF with increased markings at the lung bases suggestive of atelectasis. There is no demonstrated pleural abnormality. There is moderate cardiac enlargement. Normal mediastinum and nasrin. Normal visualized pulmonary arteries. There is atherosclerotic tortuosity of the aortic arch and descending thoracic aorta. Normal visualized thoracic spine. Normal visualized ribs, clavicles, and shoulders. There is no demonstrated abnormality of the visualized soft tissue structures of the upper abdomen. RAD/Chest 1 View (Portable) IMPRESSION: Cardiomegaly. Mild degree of vascular congestion and CHF with bibasilar linear atelectasis. Electronically Signed: Wilfred Milligan MD at 15:46 EDT , Service support ,
[2021-01-20 15:20] LABS: Differential Indicated SCAN CRITERIA MET
[2021-01-20 15:28] LABS: International Normalized Ratio 2.6
[2021-01-20 15:29] LABS: ALB/GLOB Ratio 0.7 RATIO (0.9-2.4); AST(SGOT) 44 U/L (15-37); Alanine Aminotransfer ALT/SGPT 58 U/L (16-61); Albumin, Serum 2.8 g/dL (3.2-5.0); Alkaline Phosphatase 65 U/L (45-117); Anion Gap 5 (5-15); BUN 20 mg/dL (7-18); BUN/Creat Ratio 10.8 RATIO (10-20); Calcium,Total 8.2 mg/dL (8.5-10.1); Chloride 111 mmol/L (98-107); Creatinine, Serum 1.86 mg/dL (0.70-1.30); EST Glomerular Filtration Rate 37 mL/min (>60); Est Glom Filt Rate - Afr Amer 45 mL/min (>60); Estimated Creatinine Clearance 31.16 ml/min; Globulin 3.9 g/dL (2.2-4.2); Glucose 101 mg/dL (74-106); Potassium 3.7 mmol/L (3.5-5.1); Protein, Total 6.7 g/dL (6.4-8.2); Sodium Level 139 mmol/L (136-145)
[2021-01-20 15:47] LABS: Differential Comment SCANNED
[2021-01-20 15:51] LABS: Bacteria 0 SEEN /hpf (None Seen); Mucous, Urine 0 SEEN /hpf (<or=2+); Red Blood Cells-Urine 0 SEEN /hpf (0-5)
[2021-01-20 15:58] LABS: Color, Urine Yellow (Yellow); Glucose, Dipstick Normal (Normal); Ketone-Dipstick Negative (Negative); Leukocyte Esterase-Dipstick 25 /ul (Negative); Nitrite-Dipstick Negative (Negative); Occult Blood-Urine Negative /ul (Negative); Protein-Dipstick 15 mg/dl (Negative); Urine Bilirubin Dipstick Negative (Negative); Urine Clarity Clear (Clear); Urine Urobilinogen Normal (Normal)
[2021-01-20 16:41] LABS: Squamous Epithelial Cells - UA 0-5 SEEN /hpf (0-5); White Blood Cells 0-5 SEEN /hpf (0-5)
[2021-01-20 16:51] LABS: Magnesium 2.1 mg/dL (1.6-2.6)
--- NOTE | 2021-01-20 17:11 | HP.PCM.HOS_ITS ---
HPI - General General Date of Admission: 01/20/21 HPI Narrative RICHIE HANSEN, is a 80 M who presents with generalized weakness and coughing that started 3 days ago. Patient was recently admitted on 01/11/21 and discharged on 01/14/21 with acute GI bleed. An EGD and colonoscopy done during that hospital stay was remarkable only for diverticulosis. He received 2 units of packed RBCs. Patient stated that since his discharge, he had difficulty swallowing. He had to swallow soft food. He noticed over the past 3 days that he has been having periods of coughing, orthopnea, PND. He denied any fever or chills. He denied any chest pain or dizziness or palpitations or leg swelling. He has also been progressively very weak. He denied any melena or hematochezia since his discharge. In the emergency room, patient's admitting EKG showed third-degree heart block with heart rate of 82 PFSH Medical History (Updated 01/20/21 @ 18:[address] Trisha Duran MD) Atherosclerotic heart disease of [place] coronary artery without angina pectoris Atrial fibrillation BPH (benign prostatic hyperplasia) Cancer Chronic kidney disease Coronary artery disease CPAP (continuous positive airway pressure) dependence Essential (primary) hypertension GERD (gastroesophageal reflux disease) GI bleed (2012) History of electrophysiologic study (08/08/00) History of hyperthyroidism HLD (hyperlipidemia) Hypertension Kidney disease Kidney stones Myocardial infarct Non-rheumatic tricuspid valve insufficiency Non-smoker Old myocardial infarction Osteoarthritis Paroxysmal atrial fibrillation Secondary pulmonary arterial hypertension Home Medications finasteride 5 mg tablet 5 mg PO DAILY tab 06/03/20 [History Last Taken 01/20/21] warfarin 4 mg tablet 4 mg PO DAILY tab 06/03/20 [History Last Taken 01/19/21] isosorbide mononitrate 30 mg tablet,extended release 24 hr 30 mg PO DAILY 10/27/20 [History Last Taken 01/20/21] metoprolol tartrate 25 mg tablet 12.5 mg PO BID tab 10/27/20 [History Last Taken 01/20/21] pyridoxine (vitamin B6) 50 mg tablet 50 mg PO DAILY 10/27/20 [History Last Taken 01/19/21] amiodarone 200 mg PO DAILY 12/09/20 [History Last Taken 01/20/21] denosumab 60 mg SQ .[id number] 12/09/20 [History Last Taken 12/05/20] lisinopril 10 mg PO BID 12/09/20 [History Last Taken 01/20/21] vitamin B complex 1 cap PO BID 12/09/20 [History Last Taken 01/20/21] nitroglycerin 0.4 mg sublingual tablet 0.4 mg SL Q5-15M PRN #25 tablet 12/15/20 [Rx Last Taken Unknown] diltiazem HCl 120 mg capsule,24 hr,extended release 120 mg PO DAILY #30 cap 12/30/20 [Rx Last Taken 01/19/21] hydralazine 25 mg tablet 25 mg PO TID tab 12/30/20 [History Last Taken Unknown] iron ag,[id number]-[id number] [Niferex (Sumalate-Quatrefolic)] 1 tab PO DAILY #90 tab 01/14/21 [Rx Last Taken 01/20/21] pantoprazole [Protonix] 40 mg PO DAILY #90 tab 01/14/21 [Rx Last Taken 01/20/21] sennosides [senna] 8.6 mg PO DAILY #30 cap 01/14/21 [Rx Last Taken Unknown] calcium citrate 200 mg PO BID 01/20/21 [History Last Taken 01/20/21] cholecalciferol (vitamin D3) 25 mcg PO DAILY 01/20/21 [History Last Taken 01/19/21] pravastatin 40 mg PO QHS 01/20/21 [History Last Taken 01/19/21] Allergy/AdvReac Type Severity Reaction Status Date / Time diclofenac Allergy rash Verified 01/20/21 16:39 prednisone Allergy Rash Verified 01/20/21 14:27 Family History Father Cancer Prostate cancer Mother Hypertension Sister Hypertension Surgical History History of back surgery History of cardioversion (06/18/19) History of coronary artery stent placement (08/04/00) History of hemorrhoidectomy History of hernia repair History of left heart catheterization (07/17/12) History of Zenaida fundoplication History of radiofrequency ablation procedure for cardiac arrhythmia (11/11/11) Social History Smoking Status: Never smoker alcohol intake: never substance use type: does not use caffeine: No ROS ROS Narrative Constitutional: Reports: Malaise, Weakness, Fatigue. Denies: Anorexia, Chills, Fever, Night Sweats, Weight Change Eyes: Denies: Blurred vision, Cataracts, Conjunctivae Inflammation, Pain, Redness, Vision Change HEENT: Denies: Difficulty Hearing, Difficulty Swallowing, Head Aches, Hearing Changes, Sinus Congestion, Sinus Drainage Cardiovascular: Denies: Chest Pain, Orthopnea, Palpitations Respiratory: Admits to cough, shortness of breath at rest, Denies: Sputum production Gastrointestinal: Denies: Abdominal Pain, Nausea, Vomiting Genitourinary: Denies: Dysuria Musculoskeletal: Denies: Joint Pain, Joint stiffness, Joint swelling, Joint Tenderness Skin: Denies: Rash, Wounds Neurological: Denies: Numbness, Tingling, Focal weakness Vital Signs Vital Signs Vital Signs: 01/20/21 14:25 01/20/21 15:14 01/20/21 15:17 Temperature 99.1 F Temperature Source Temporal Pulse Rate 95 Pulse Rate [Lying] 81 Pulse Rate [Sitting] 92 Pulse Rate [Standing] 92 Respiratory Rate 16 Respiratory Effort Normal Non-Labored Respiratory Pattern Normal Blood Pressure 137/77 H Blood Pressure [Lying] 138/84 H Blood Pressure [Sitting] 140/91 H Blood Pressure [Standing] 152/83 H Blood Pressure Mean 97 Blood Pressure Mean [Lying] 102 Blood Pressure Mean [Sitting] 107 Blood Pressure Mean [Standing] 106 Pulse Ox 97 Oxygen Delivery Method Room Air Weight Weight: 69.4 kg Body Mass Index (BMI) 23.2 Lab / Micro Data Result Diagrams: 01/20/21 15:03 01/20/21 15:03 Labs: Laboratory Results - last 24 hr 01/20/21 01/20/21 01/20/21 15:03 15:03 15:03 WBC 9.5 RBC 2.64 L Hgb 8.5 L Hct 26.4 L MCV 100.0 H MCH 32.2 H MCHC 32.2 RDW Std Deviation 68.8 H RDW Coeff of Pablo 18.7 H Plt Count 469 H MPV 9.5 Immature Gran % (Auto) 0.500 Neut % (Auto) 77.1 H Lymph % (Auto) 8.6 L [place] % (Auto) 10.2 H Eos % (Auto) 2.7 Baso % (Auto) 0.9 Absolute Neuts (auto) 7.3 Absolute Lymphs (auto) 0.82 L Nucleated RBC % 0 Differential Comment SCANNED PT 27.0 H INR 2.6 APTT 53.0 H Sodium 139 Potassium 3.7 Chloride 111 H Carbon Dioxide 23.0 Anion Gap 5 BUN 20 H Creatinine 1.86 H Estim Creat Clear Calc 31.16 Est GFR (MDRD) Af Amer 45 L Est GFR (MDRD) Non-Af 37 L BUN/Creatinine Ratio 10.8 Glucose 101 Calcium 8.2 L Magnesium Total Bilirubin 0.80 AST 44 H ALT 58 Alkaline Phosphatase 65 Troponin I < 0.015 Total Protein 6.7 Albumin 2.8 L Globulin 3.9 Albumin/Globulin Ratio 0.7 L Urine Color Urine Clarity Urine pH Ur Specific [place] Urine Protein Urine Glucose (UA) Urine Ketones Urine Occult Blood Urine Nitrite Urine Bilirubin Urine Urobilinogen Ur Leukocyte Esterase Urine RBC Urine WBC Ur Squamous Epith Cells Urine Bacteria Urine Mucus 01/20/21 01/20/21 15:03 15:45 WBC RBC Hgb Hct MCV MCH MCHC RDW Std Deviation RDW Coeff of [place] Plt Count MPV Immature Gran % (Auto) Neut % (Auto) Lymph % (Auto) [place] % (Auto) Eos % (Auto) Baso % (Auto) Absolute Neuts (auto) Absolute Lymphs (auto) Nucleated RBC % Differential Comment PT INR APTT Sodium Potassium Chloride Carbon Dioxide Anion Gap BUN Creatinine Estim Creat Clear Calc Est GFR (MDRD) Af Amer Est GFR (MDRD) Non-Af BUN/Creatinine Ratio Glucose Calcium Magnesium 2.1 Total Bilirubin AST ALT Alkaline Phosphatase Troponin I Total Protein Albumin Globulin Albumin/Globulin Ratio Urine Color Yellow Urine Clarity Clear Urine pH 7.0 Ur Specific [place] 1.010 Urine Protein 15 H Urine Glucose (UA) Normal Urine Ketones Negative Urine Occult Blood Negative Urine Nitrite Negative Urine Bilirubin Negative Urine Urobilinogen Normal Ur Leukocyte Esterase 25 H Urine RBC 0 SEEN Urine WBC 0-5 SEEN Ur Squamous Epith Cells 0-5 SEEN Urine Bacteria 0 SEEN Urine Mucus 0 SEEN Micro: Microbiology 01/20/21 15:03 SARS-CoV-2 Antigen (Rapid) - Final Interface Orders Radiology Impression Chest X-Ray 01/20/21 15:18 IMPRESSION: Cardiomegaly. Mild degree of vascular congestion and CHF with bibasilar linear atelectasis. 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 Debility related to recent admission and anemia PT/OT to evaluate and treat 2. Dysrhythmia, history of atrial fibrillation status post cardioversion in 2019 Patient denies any chest pain or dizziness or palpitations Heart rate in the 80s. INR of 2.6 Cardiology consulted - 2D echo, cardiac enzymes Discussed with Dr. Vega, would hold off on amiodarone, Cardizem, beta- [place] and monitor 3. Probable acute CHF versus fluid overload from recent blood transfusion during the hospital stay Unclear for now if patient is with heart failure with preserved EF or reduced EF Admitting chest x-ray shows congestion, cardiomegaly Last 2D echo showed EF of 53%; will repeat 2D echo, check BNPep, trial of Lasix 20 mg IV x1 4. Anemia, secondary to recent acute blood loss from GI bleed, hemoglobin remained stable Continue with oral iron 5. Recent GI bleed, resolved, continue on PPI 6. Hypertension, slightly uncontrolled, continue on lisinopril Metoprolol, Cardizem has been held 7. CODE STATUS?full code I discussed and explained in details the various types of CODE STATUS-full code, DNR CCA, DNR CC. Patient chose full code. He wants everything to be done to keep him alive. Time spent discussing CODE STATUS 18 minutes Visit Charges Inpatient E&M: 39092 Init Hosp L3 Procedures Hospitalists Procedures: 78488 Advncd Care Plan 30 Min
[2021-01-20] MEDS: 0.9% Normal Saline 1,000 ML 75 ML IV (17:42)
--- NOTE | 2021-01-20 18:05 | ECHOD_ITS ---
Reason For Study: Dyspnea/SOB Procedure This was a 2D Doppler, Color Flow transthoracic echocardiogram. The study was technically difficult. Exam performed portable in patient room. Left Ventricle Normal LV size. Left ventricular systolic function is normal. The estimated ejection fraction is 60 %. Unable to assess diastolic dysfunction. No regional wall motion abnormalities noted. Right Ventricle Normal RV size. Normal systolic function. Atria The left atrium is severely enlarged. The right atrium is mildly enlarged. No doppler evidence for ASD. Mitral Valve There is mild mitral annular calcification. Mild diffuse mitral valve thickening. Moderately severe (3+) eccentric mitral valve insufficiency. Tricuspid Valve Normal tricuspid valve. Moderately severe (3+) tricuspid valve insufficiency. Right ventricular systolic pressure estimated to be 47 mmHg. Aortic Valve Trisinus/trileaflet aortic valve. Mild diffuse aortic valve thickening. Mild focal aortic valve calcification. Mild (1+) aortic valve insufficiency. Pulmonic Valve The pulmonic valve is not well visualized. Great Vessels The aortic root is not well visualized. Pericardium/Pleural No pericardial effusion. MMode/2D Measurements & Calculations LVIDd: 4.8 cm IVSd: 1.1 cm LVOT diam: 2.0 cm LVIDs: 2.9 cm LVPWd: 1.3 cm LVOT area: 3.3 cm2 RVDd: 3.8 cm FS: 38.7 % LA dimension: 5.2 cm LAV(MOD-bp): 125.1 ml LA A4 area: 33.3 cm2 LAV(MOD-bp) Indexed: 67.3 ml/m2 LAV(MOD-sp2): 108.1 ml LAV(MOD-sp4): 135.4 ml RA A4 area: 21.5 cm2 Doppler Measurements & Calculations MV E max lore: 97.9 cm/sec Ao V2 max: 94.0 cm/sec AI max lore: 456.6 cm/sec Ao max P.6 mmHg AI max P.6 mmHg KATIE(V,D): 2.9 cm2 AI dec slope: 261.3 cm/sec2 AI P1/2t: 511.9 msec LV V1 max: 84.1 cm/sec PA V2 max: 77.0 cm/sec TR max lore: 331.6 cm/sec LV V1 max P.8 mmHg TR max P.0 mmHg ECHO/Echo Complete Interpretation Summary The study was technically difficult. Left ventricular systolic function is normal. The estimated ejection fraction is 60 %. The left atrium is severely enlarged. The right atrium is mildly enlarged. There is mild mitral annular calcification. Mild diffuse mitral valve thickening. Moderately severe (3+) eccentric mitral valve insufficiency. Moderately severe (3+) tricuspid valve insufficiency. Mild diffuse aortic valve thickening. Mild focal aortic valve calcification. Mild (1+) aortic valve insufficiency. Right ventricular systolic pressure estimated to be 47 mmHg. Unable to assess diastolic dysfunction. Ordering Physician: Trisha Duran Referring Physician: César Chinchilla Performed By: Williams Chavez RCS
[2021-01-20] MEDS: Furosemide 20 MG/2 ML VIAL IV (18:35)
[2021-01-20 18:49] LABS: BNP,B-Type NATRIURETIC PEPTIDE 884.2 pg/mL (0-100)
[2021-01-20] MEDS: Ipratropium/Albuterol Sulfate 3 ML AMPUL.NEB INHALATION (19:10)
[2021-01-20] MEDS: Pravastatin 40 MG Tablet PO (21:08)
[2021-01-20] MEDS: Lisinopril 10 MG Tablet PO (21:08)
[2021-01-20] MEDS: hydrALAZINE 25 MG Tablet PO (21:08)
--- NOTE | 2021-01-20 21:13 | PCM.CONS.C ---
Assessment & Plan Assessment/Plan (1) Atrial flutter: PLAN: The patient has an underlying cardiac dysrhythmia. Status post further evaluation it appears compatible with then atypical or sick atrial flutter with variable AV conduction. At the present time he is continuing to be monitored. His rate limiting medications and antiarrhythmics are on temporary hold. He is continuing his anticoagulant therapy. Depending upon his subsequent cardiac rate and rhythm consideration will be given as to how to adjust medical therapy and/or if the patient remains in what appears to be an underlying atypical or sick atrial flutter whether he may need an attempt at synchronized biphasic DC cardioversion. (2) Paroxysmal atrial fibrillation: PLAN: The patient has a history of atrial fibrillation. He has reported is status post EPS/RFA. He is remained on medical management including anticoagulation. (3) Atherosclerotic heart disease of [place] coronary artery without angina pectoris: QUALIFIERS: [place] vs. transplanted heart: unspecified whether [place] or transplanted heart Qualified Code(s): I25.10 - Atherosclerotic heart disease of [place] coronary artery without angina pectoris PLAN: The patient has a history of underlying CAD. His previous noninvasive and invasive studies are noted. At the moment it does not appear he has evidence of an ongoing acute coronary syndrome. (4) History of coronary artery stent placement: PLAN: The patient's LAD stent was evaluated in 2011. At that point time it was patent. He recently had a noninvasive stress nuclear imaging study. There was no evidence of ischemia reported. He has continued medical management. (5) HLD (hyperlipidemia): QUALIFIERS: Hyperlipidemia type: unspecified Qualified Code(s): E78.5 - Hyperlipidemia, unspecified PLAN: The patient has continued lipid-lowering therapy with pravastatin. His lipids can be reassessed as deemed appropriate. (6) Essential (primary) hypertension: PLAN: The patient's blood pressure will be followed with adjustment of medications taking into consideration his other multiple issues. (7) Secondary pulmonary arterial hypertension: PLAN: The patient has a history of pulmonary hypertension. This can be reassessed with echocardiographic studies. (8) Acute anemia: PLAN: The patient has undergone evaluation for anemia. His hemoglobin level remains low. It is unclear whether this is the sole contributing factor to his weakness/fatigue or 1 of other factors attributing to his weakness/fatigue. His hemoglobin level does need to be monitored. Depending upon his clinical course he may or may not need additional PRBCs. (9) Fatigue: QUALIFIERS: Fatigue type: unspecified Qualified Code(s): R53.83 - Other fatigue PLAN: The etiology of the patient's weakness/fatigue is unclear. It is unclear whether it is related to his change in cardiac rhythm. At the present time there appears to be no definitive evidence of an acute coronary syndrome. The patient is going to be reassessed for any change in his left ventricular wall motion or systolic function that would contribute to these concerns with a follow-up transthoracic echocardiogram. The patient should continue additional noncardiac evaluation as deemed appropriate. (10) Cardiac murmur: PLAN: The patient does have a cardiac murmur on examination. His previous echocardiogram is as noted. Again he will have a follow-up echocardiogram to reassess his valvular anatomy and physiology for any significant changes that may also be contributing to his symptoms. Addt'l Comments The patient's case has been discussed and reviewed with the patient, Dr. Gilmore of the [facility] ED staff, Dr. Duran of the [facility] hospitalist staff, and his primary bituminous paving machine operator Dr. Molina. This note was generated using a voice recognition system and there may be incorrect words, spelling or punctuation that were not noted when reviewing the office note prior to saving. HPI Consult Data Date of Consult: 01/20/21 HPI Narrative HPI Narrative: RICHIE HANSEN, is a 80 M who presents for evaluation of weakness with a history of CAD, LAD PCI, atrial fibrillation, EPS/RFA, hyperlipidemia, hypertension, pulmonary hypertension, anemia thought secondary to gastrointestinal bleeding process who is referred for further cardiovascular evaluation based upon concerns of an abnormal cardiac rhythm/ECG. The patient states that he has been progressively weak. He states he feels as if he has no energy. He has been lying on the floor because he has felt so weak. He states he recently underwent evaluation for anemia. He underwent upper and lower endoscopy procedures. He states there was no acute bleeding noted. However he was found to have diverticular disease which he believes was the etiology for his anemia. He did receive PRBC transfusions. He notes that since his upper endoscopy he has developed a cough. He states his cough is been relentless at times. He has not complained of classic angina pectoris and has not had overt orthopnea or PND or peripheral pitting edema. He notes he has felt dizzy and lightheaded at times but has had no near syncope or syncope. Based upon his progressive weakness he presented to the emergency department for further evaluation. He underwent laboratory studies that demonstrated his hemoglobin remained low at 8.5, his troponin I level was negative, a BNP level was elevated at 884. His INR was therapeutic at 2.6. His ECG, status post review, was thought compatible with an underlying atypical atrial flutter with variable AV conduction. A chest x-ray was performed which which appeared on preliminary inspection to suggest, despite being a portable chest film, increased cardiac silhouette size and blunting of the right costophrenic angle. He was subsequently placed in the PCU for further evaluation. During this time his rate limiting medications and antiarrhythmic medications have been placed on temporary hold. [facility] Medical History (Updated 01/20/21 @ 21:[address] Kenny Vega MD) Atherosclerotic heart disease of [place] coronary artery without angina pectoris Atrial fibrillation Atrial flutter BPH (benign prostatic hyperplasia) Cancer Chronic kidney disease Coronary artery disease CPAP (continuous positive airway pressure) dependence Essential (primary) hypertension GERD (gastroesophageal reflux disease) GI bleed (2012) History of electrophysiologic study (08/08/00) History of hyperthyroidism HLD (hyperlipidemia) Hypertension Kidney disease Kidney stones Myocardial infarct Non-rheumatic tricuspid valve insufficiency Non-smoker Old myocardial infarction Osteoarthritis Paroxysmal atrial fibrillation Secondary pulmonary arterial hypertension Home Medications finasteride 5 mg tablet 5 mg PO DAILY tab 06/03/20 [History Last Taken 01/20/21] warfarin 4 mg tablet 4 mg PO DAILY tab 06/03/20 [History Last Taken 01/19/21] isosorbide mononitrate 30 mg tablet,extended release 24 hr 30 mg PO DAILY 10/27/20 [History Last Taken 01/20/21] metoprolol tartrate 25 mg tablet 12.5 mg PO BID tab 10/27/20 [History Last Taken 01/20/21] pyridoxine (vitamin B6) 50 mg tablet 50 mg PO DAILY 10/27/20 [History Last Taken 01/19/21] amiodarone 200 mg PO DAILY 12/09/20 [History Last Taken 01/20/21] denosumab 60 mg SQ [id number] 12/09/20 [History Last Taken 12/05/20] lisinopril 10 mg PO BID 12/09/20 [History Last Taken 01/20/21] vitamin B complex 1 cap PO BID 12/09/20 [History Last Taken 01/20/21] nitroglycerin 0.4 mg sublingual tablet 0.4 mg SL Q5-15M PRN #25 tablet 12/15/20 [Rx Last Taken Unknown] diltiazem HCl 120 mg capsule,24 hr,extended release 120 mg PO DAILY #30 cap 12/30/20 [Rx Last Taken 01/19/21] hydralazine 25 mg tablet 25 mg PO TID tab 12/30/20 [History Last Taken Unknown] iron ag,[id number] [Niferex (Sumalate-Quatrefolic)] 1 tab PO DAILY #90 tab 01/14/21 [Rx Last Taken 01/20/21] pantoprazole [Protonix] 40 mg PO DAILY #90 tab 01/14/21 [Rx Last Taken 01/20/21] sennosides [senna] 8.6 mg PO DAILY #30 cap 01/14/21 [Rx Last Taken Unknown] calcium citrate 200 mg PO BID 01/20/21 [History Last Taken 01/20/21] cholecalciferol (vitamin D3) 25 mcg PO DAILY 01/20/21 [History Last Taken 01/19/21] pravastatin 40 mg PO QHS 01/20/21 [History Last Taken 01/19/21] Allergy/AdvReac Type Severity Reaction Status Date / Time diclofenac Allergy rash Verified 01/20/21 16:39 prednisone Allergy Rash Verified 01/20/21 14:27 Family History Father Cancer Prostate cancer Mother Hypertension Sister Hypertension Surgical History History of back surgery History of cardioversion (06/18/19) History of coronary artery stent placement (08/04/00) History of hemorrhoidectomy History of hernia repair History of left heart catheterization (07/17/12) History of Zenaida fundoplication History of radiofrequency ablation procedure for cardiac arrhythmia (11/11/11) Social History Smoking Status: Never smoker alcohol intake: never substance use type: does not use caffeine: No ROS Constitutional Constitutional: Reports weakness Eyes Eyes: Reports as per HPI ENT HEENT: Reports as per HPI Cardiovascular Cardiovascular: Reports as per HPI Respiratory/Chest Respiratory/Chest: Reports cough Gastrointestinal Gastrointestinal: Reports as per HPI Genitourinary Genitourinary: Reports as per HPI Musculoskeletal Musculoskeletal: Reports joint pain Neurologic Neurologic: Reports as per HPI Psychiatric Psychiatric: Reports as per HPI Hematologic/Lymphatic Hematologic/Lymphatic: Reports anemia Physical Exam Const alert and oriented x3 Orientation / Consciousness: awake HEENT normocephalic, head/scalp atraumatic and hearing grossly normal bilaterally Eyes PERRL, EOMs intact bilaterally, conjunctivae normal and no scleral icterus Neck full ROM, supple and no JVD Chest inspection of chest normal Resp normal respiratory effort Auscultation: diminished lung sounds right lower Cardio Rhythm: abnormal rhythm irregularly irregular Heart Sounds: S1 normal, S2 normal and murmur systolic III/ soft mid left sternal border, apex and axilla GI normal to inspection, nondistended, normoactive bowel sounds Extremity no pedal edema Skin no rashes or lesions noted Neuro oriented x3 and moves all extremities Psych mental status grossly normal Procedure Criteria Type of Procedure Procedure Type: Elective Elective Risks - COVID COVID Risk Discussion: The surgeon/proceduralist and patient have discussed in detail the risk of exposure to and/or potential harm posed by the COVID-19 virus with having a surgery/procedure at this time versus the risk of delaying the surgery/procedure. It is not possible to know either the risk of delaying the surgery or procedure or chance of getting an infection with perfect accuracy, but a joint decision was made between the patient and the surgeon/proceduralist to proceed at this time with the scheduled surgery/procedure as indicated on the consent form.
[2021-01-20] MEDS: guaiFENesin 10 ML UDC (200MG/10ML) PO (23:03)
[2021-01-21] VITALS (19 sets, daily range): BP systolic 107–145; BP diastolic 65–94; PULSE 89–103; RESP 16–20; TEMP 36.9–37.2; O2SAT 94–98
[2021-01-21] MEDS: Furosemide 20 MG/2 ML VIAL IV (00:16)
[2021-01-21] MEDS: Acetaminophen 325 MG Tablet 650 MG PO ×2 (02:32→10:18)
[2021-01-21] MEDS: hydrALAZINE 25 MG Tablet PO ×2 (05:35→23:24)
--- NOTE | 2021-01-21 05:55 | EKG12_ITS ---
Test Reason : AM Blood Pressure : / mmHG Vent. Rate : 096 BPM Atrial Rate : 096 BPM P-R Int : 124 ms QRS Dur : 100 ms QT Int : 400 ms P-R-T Axes : 089 018 019 degrees QTc Int : 505 ms Normal sinus rhythm Nonspecific ST abnormality Prolonged QT Abnormal ECG Confirmed by RODOLFO KASPER, EIL ([id number]), assignment editor CIPRIANO GATES ([id number]) on 01/22/2021 11:34:12 AM Referred By: HODA Confirmed By:ELI REYNOLDS MD
[2021-01-21 07:02] LABS: Absolute Lymphocyte Count 0.96 X10^3/uL (0.83-4.51); Absolute Neutrophil Count 7.6 X10^3/uL (2.0-7.7); Basophil# 0.08 X10^3/uL; Basophil% 0.8 % (0-1); Hematocrit 27.3 % (40-54); Hemoglobin 9.1 g/dL (13.0-16.5); Lymphocyte # 0.96 X10^3/ul (0.83-4.51); Lymphocyte % 9.7 % (19-41); Mean Corp Hgb Conc 33.3 g/dL (32-36); Mean Corpuscular Hgb 32.4 pg (27.0-32.0); Mean Corpuscular Volume 97.2 fL (80-94); Mean Platelet Vol. 8.8 fl (6.2-12.0); Monocyte# 1.06 X10^3/uL; Monocyte% 10.7 % (0-10); NRBC Flagged by Analyzer 0 % (0-5); Neutrophil # 7.56 X10^3/uL (2.7-7.7); Neutrophil % 76.2 % (47-70); POSITIVE MORPHOLOGY YES; Platelet Count 445 K/mm3 (150-450); RBC Distribution Width CV 18.4 % (11.6-14.6); RBC Distribution Width SD 66.2 fl (35.1-43.9); Red Blood Count 2.81 M/mm3 (4.6-6.2); White Blood Count 9.9 K/mm3 (4.4-11.0)
[2021-01-21] MEDS: Ipratropium/Albuterol Sulfate 3 ML AMPUL.NEB INHALATION ×4 (07:02→19:11)
[2021-01-21 07:06] LABS: Differential Indicated SCAN CRITERIA MET
[2021-01-21 07:28] LABS: Anisocytosis 2+
[2021-01-21 07:41] LABS: ALB/GLOB Ratio 0.7 RATIO (0.9-2.4); AST(SGOT) 34 U/L (15-37); Alanine Aminotransfer ALT/SGPT 55 U/L (16-61); Alkaline Phosphatase 64 U/L (45-117); Anion Gap 6 (5-15); BUN 17 mg/dL (7-18); BUN/Creat Ratio 8.9 RATIO (10-20); Calcium,Total 8.2 mg/dL (8.5-10.1); Chloride 108 mmol/L (98-107); Creatinine, Serum 1.91 mg/dL (0.70-1.30); EST Glomerular Filtration Rate 36 mL/min (>60); Est Glom Filt Rate - Afr Amer 44 mL/min (>60); Estimated Creatinine Clearance 30.34 ml/min; Globulin 4.2 g/dL (2.2-4.2); Glucose 90 mg/dL (74-106); Potassium 3.1 mmol/L (3.5-5.1); Protein, Total 7.2 g/dL (6.4-8.2); Sodium Level 140 mmol/L (136-145)
--- NOTE | 2021-01-21 08:09 | PCM.PN.CARD ---
Subjective Subjective Patient seen and evaluated. Appears to be doing better this morning Objective Data Vital Signs: Vital Signs Temp Pulse Resp BP Pulse Ox 98.4 F 97 19 H 136/94 H 97 01/21/21 05:27 01/21/21 07:02 01/21/21 07:02 01/21/21 05:35 01/21/21 07:02 Oxygen Delivery Method Room Air Weight: 150 lb 12.739 oz Body Mass Index (BMI) 24.4 Intake & Output: Intake and Output for Last 24 Hours 01/19/21 01/20/21 01/21/21 23:59 23:59 23:59 Intake Total 360 / 360 1073.75 / 1073.75 Output Total 1525 / 1525 2175 / 2175 Balance -1165 / -1165 -1101.25 / -1101.25 Lab / Micro Data Result Diagrams: 01/21/21 06:45 01/21/21 06:45 Labs: Laboratory Results - last 24 hr 01/20/21 01/20/21 01/20/21 15:03 15:03 15:03 WBC 9.5 RBC 2.64 L Hgb 8.5 L Hct 26.4 L MCV 100.0 H MCH 32.2 H MCHC 32.2 RDW Std Deviation 68.8 H RDW Coeff of [place] 18.7 H Plt Count 469 H MPV 9.5 Immature Gran % (Auto) 0.500 Neut % (Auto) 77.1 H Lymph % (Auto) 8.6 L [place] % (Auto) 10.2 H Eos % (Auto) 2.7 Baso % (Auto) 0.9 Absolute Neuts (auto) 7.3 Absolute Lymphs (auto) 0.82 L Nucleated RBC % 0 Differential Comment SCANNED Anisocytosis PT 27.0 H INR 2.6 APTT 53.0 H Sodium 139 Potassium 3.7 Chloride 111 H Carbon Dioxide 23.0 Anion Gap 5 BUN 20 H Creatinine 1.86 H Estim Creat Clear Calc 31.16 Est GFR (MDRD) Af Amer 45 L Est GFR (MDRD) Non-Af 37 L BUN/Creatinine Ratio 10.8 Glucose 101 Calcium 8.2 L Magnesium Total Bilirubin 0.80 AST 44 H ALT 58 Alkaline Phosphatase 65 Troponin I < 0.015 B-Natriuretic Peptide Total Protein 6.7 Albumin 2.8 L Globulin 3.9 Albumin/Globulin Ratio 0.7 L Urine Color Urine Clarity Urine pH Ur Specific [place] Urine Protein Urine Glucose (UA) Urine Ketones Urine Occult Blood Urine Nitrite Urine Bilirubin Urine Urobilinogen Ur Leukocyte Esterase Urine RBC Urine WBC Ur Squamous Epith Cells Urine Bacteria Urine Mucus 01/20/21 01/20/21 01/20/21 15:03 15:03 15:45 WBC RBC Hgb Hct MCV MCH MCHC RDW Std Deviation RDW Coeff of [place] Plt Count MPV Immature Gran % (Auto) Neut % (Auto) Lymph % (Auto) [place] % (Auto) Eos % (Auto) Baso % (Auto) Absolute Neuts (auto) Absolute Lymphs (auto) Nucleated RBC % Differential Comment Anisocytosis PT INR APTT Sodium Potassium Chloride Carbon Dioxide Anion Gap BUN Creatinine Estim Creat Clear Calc Est GFR (MDRD) Af Amer Est GFR (MDRD) Non-Af BUN/Creatinine Ratio Glucose Calcium Magnesium 2.1 Total Bilirubin AST ALT Alkaline Phosphatase Troponin I B-Natriuretic Peptide 884.2 H Total Protein Albumin Globulin Albumin/Globulin Ratio Urine Color Yellow Urine Clarity Clear Urine pH 7.0 Ur Specific [place] 1.010 Urine Protein 15 H Urine Glucose (UA) Normal Urine Ketones Negative Urine Occult Blood Negative Urine Nitrite Negative Urine Bilirubin Negative Urine Urobilinogen Normal Ur Leukocyte Esterase 25 H Urine RBC 0 SEEN Urine WBC 0-5 SEEN Ur Squamous Epith Cells 0-5 SEEN Urine Bacteria 0 SEEN Urine Mucus 0 SEEN 01/20/21 01/20/21 01/21/21 18:45 21:05 06:45 WBC 9.9 RBC 2.81 L Hgb 9.1 L Hct 27.3 L MCV 97.2 H MCH 32.4 H MCHC 33.3 RDW Std Deviation 66.2 H RDW Coeff of [place] 18.4 H Plt Count 445 MPV 8.8 Immature Gran % (Auto) 0.600 Neut % (Auto) 76.2 H Lymph % (Auto) 9.7 L [place] % (Auto) 10.7 H Eos % (Auto) 2.0 Baso % (Auto) 0.8 Absolute Neuts (auto) 7.6 Absolute Lymphs (auto) 0.96 Nucleated RBC % 0 Differential Comment Anisocytosis 2+ PT INR APTT Sodium Potassium Chloride Carbon Dioxide Anion Gap BUN Creatinine Estim Creat Clear Calc Est GFR (MDRD) Af Amer Est GFR (MDRD) Non-Af BUN/Creatinine Ratio Glucose Calcium Magnesium Total Bilirubin AST ALT Alkaline Phosphatase Troponin I < 0.015 < 0.015 B-Natriuretic Peptide Total Protein Albumin Globulin Albumin/Globulin Ratio Urine Color Urine Clarity Urine pH Ur Specific [place] Urine Protein Urine Glucose (UA) Urine Ketones Urine Occult Blood Urine Nitrite Urine Bilirubin Urine Urobilinogen Ur Leukocyte Esterase Urine RBC Urine WBC Ur Squamous Epith Cells Urine Bacteria Urine Mucus 01/21/21 06:45 WBC RBC Hgb Hct MCV MCH MCHC RDW Std Deviation RDW Coeff of [place] Plt Count MPV Immature Gran % (Auto) Neut % (Auto) Lymph % (Auto) [place] % (Auto) Eos % (Auto) Baso % (Auto) Absolute Neuts (auto) Absolute Lymphs (auto) Nucleated RBC % Differential Comment Anisocytosis PT INR APTT Sodium 140 Potassium 3.1 L Chloride 108 H Carbon Dioxide 26.0 Anion Gap 6 BUN 17 Creatinine 1.91 H Estim Creat Clear Calc 30.34 Est GFR (MDRD) Af Amer 44 L Est GFR (MDRD) Non-Af 36 L BUN/Creatinine Ratio 8.9 L Glucose 90 Calcium 8.2 L Magnesium Total Bilirubin 1.00 AST 34 ALT 55 Alkaline Phosphatase 64 Troponin I B-Natriuretic Peptide Total Protein 7.2 Albumin 3.0 L Globulin 4.2 Albumin/Globulin Ratio 0.7 L Urine Color Urine Clarity Urine pH Ur Specific [place] Urine Protein Urine Glucose (UA) Urine Ketones Urine Occult Blood Urine Nitrite Urine Bilirubin Urine Urobilinogen Ur Leukocyte Esterase Urine RBC Urine WBC Ur Squamous Epith Cells Urine Bacteria Urine Mucus Micro: Microbiology 01/20/21 15:03 Interface Orders SARS-CoV-2 Antigen (Rapid) - Final Cardiology Labs/Tests 01/20/21 15:03: WBC 9.5, RBC 2.64 L, Hgb 8.5 L, Hct 26.4 L, MCV 100.0 H, MCH 32.2 H, MCHC 32.2, Plt Count 469 H, MPV 9.5, Immature Gran % (Auto) 0.500, Neut % (Auto) 77.1 H, Lymph % (Auto) 8.6 L, [place] % (Auto) 10.2 H, Eos % (Auto) 2.7, Baso % (Auto) 0.9, Absolute Neuts (auto) 7.3, Nucleated RBC % 0 01/20/21 15:03: PT 27.0 H, INR 2.6, APTT 53.0 H 01/20/21 15:03: Sodium 139, Potassium 3.7, Chloride 111 H, Carbon Dioxide 23.0, Anion Gap 5, BUN 20 H, Creatinine 1.86 H, Est GFR (MDRD) Af Amer 45 L, Est GFR (MDRD) Non-Af 37 L, BUN/Creatinine Ratio 10.8, Glucose 101, Calcium 8.2 L, Total Bilirubin 0.80, Troponin I < 0.015 01/20/21 15:03: Magnesium 2.1 01/20/21 15:03: B-Natriuretic Peptide 884.2 H 01/20/21 15:45: Urine Color Yellow, Urine Clarity Clear, Urine pH 7.0, Ur Specific [place] 1.010, Urine Protein 15 H, Urine Glucose (UA) Normal, Urine Ketones Negative, Urine Occult Blood Negative, Urine Nitrite Negative, Urine Bilirubin Negative, Urine Urobilinogen Normal, Ur Leukocyte Esterase 25 H, Urine RBC 0 SEEN, Urine WBC 0-5 SEEN 01/20/21 18:45: Troponin I < 0.015 01/20/21 21:05: Troponin I < 0.015 01/21/21 06:45: WBC 9.9, RBC 2.81 L, Hgb 9.1 L, Hct 27.3 L, MCV 97.2 H, MCH 32.4 H, MCHC 33.3, Plt Count 445, MPV 8.8, Immature Gran % (Auto) 0.600, Neut % (Auto) 76.2 H, Lymph % (Auto) 9.7 L, [place] % (Auto) 10.7 H, Eos % (Auto) 2.0, Baso % (Auto) 0.8, Absolute Neuts (auto) 7.6, Nucleated RBC % 0 01/21/21 06:45: Sodium 140, Potassium 3.1 L, Chloride 108 H, Carbon Dioxide 26.0, Anion Gap 6, BUN 17, Creatinine 1.91 H, Est GFR (MDRD) Af Amer 44 L, Est GFR (MDRD) Non-Af 36 L, BUN/Creatinine Ratio 8.9 L, Glucose 90, Calcium 8.2 L, Total Bilirubin 1.00 Rhythm: EKG: ECHO: Stress Test: Cardiac Cath: PCI: CT Surgery: Holter monitor: EPS: PPM: CXR: Chest CT Scan: Radiography Diagnostic Testing: Radiology Impression Chest X-Ray 01/20/21 15:18 IMPRESSION: Cardiomegaly. Mild degree of vascular congestion and CHF with bibasilar linear atelectasis. Electronically Signed: Wilfred Milligan MD at 15:46 EDT , Service support , Physical Exam Const oriented x3 and healthy appearing Orientation / Consciousness: awake HEENT normocephalic Eyes PERRL and conjunctivae normal Neck supple, no JVD and no carotid bruits Chest inspection of chest normal Resp normal respiratory effort and clear to auscultation bilaterally Cardio Palpation: normal PMI Rate: regular rate Rhythm: regular rhythm and abnormal rhythm irregularly irregular Heart Sounds: S1 normal and S2 normal Peripheral Pulses: pulses 2+ throughout GI normal to inspection, nondistended, normoactive bowel sounds Extremity normal to inspection and no clubbing, cyanosis or edema Psych mental status grossly normal Assessment & Plan Assessment/Plan (1) Atrial flutter: PLAN: He appears to have an atypical atrial flutter. At this time he should remain on his beta-asia, calcium channel [place] and I will resume the amiodarone at a lower dose. This seems to keep him at a heart rate that is tolerable. Anticoagulation will be resumed after GI issues and anemia is sorted out. (2) CHF exacerbation: QUALIFIERS: Heart failure type: unspecified Qualified Code(s): I50.9 - Heart failure, unspecified PLAN: He does have mild exacerbation of congestive heart failure likely secondary to the anemia. He can be temporarily diuresed. He will continue his other medications. An echocardiogram is pending. (3) Atherosclerotic heart disease of [place] coronary artery without angina pectoris: QUALIFIERS: [place] vs. transplanted heart: unspecified whether [place] or transplanted heart Qualified Code(s): I25.10 - Atherosclerotic heart disease of [place] coronary artery without angina pectoris PLAN: He does have a history of coronary artery disease. He recently underwent a stress test which demonstrated no evidence of ischemia. I do not think that this is contributing to any of his symptoms at this time. There is no reason to repeat this. (4) Essential (primary) hypertension: PLAN: He does have a history of hypertension which is well controlled on the current medical therapy I would not recommend that we make any major changes. (5) Cardiac murmur: PLAN: His cardiac murmur is exacerbated by his anemia. I do not believe that he has developed any significant valvular heart disease. Nonetheless an echocardiogram is pending.
[2021-01-21 08:16] LABS: International Normalized Ratio 2.6; Prothrombin Time (Protime)PT. 27.3 SECONDS (11.7-14.9)
[2021-01-21] MEDS: Ondansetron 4 MG/2 ML Vial IV (08:51)
[2021-01-21] MEDS: 0.9% Saline Lock 10 ML Syringe IV ×3 (08:51→17:07)
[2021-01-21] MEDS: Vitamin B Comp W-C Capsule 1 CAP PO ×2 (10:10→17:07)
[2021-01-21] MEDS: Cholecalciferol (VIT D3) 25 MCG TABLET (1,000 UNITS) PO (10:11)
[2021-01-21] MEDS: Pantoprazole Sodium 40 MG Tablet PO (10:11)
[2021-01-21] MEDS: Amiodarone 200 MG Tablet 100 MG PO (10:11)
[2021-01-21] MEDS: Senna Tablet 1 TABLET PO (10:11)
[2021-01-21] MEDS: Iron Polysaccharide Complex 150 MG CAPSULE PO (10:11)
[2021-01-21] MEDS: Pyridoxine HCl 50 MG Tablet PO (10:11)
[2021-01-21] MEDS: Finasteride 5 MG Tablet PO (10:11)
[2021-01-21] MEDS: Lisinopril 10 MG Tablet PO ×2 (10:11→22:01)
[2021-01-21] MEDS: dilTIAZem CD 120 MG Capsule PO (10:12)
[2021-01-21] MEDS: Metoprolol Tartrate 25 MG Tablet 12.5 MG PO ×2 (10:12→21:48)
[2021-01-21] MEDS: Furosemide 40 MG/4 ML Vial IV ×2 (10:13→17:07)
--- NOTE | 2021-01-21 11:24 | PN.HOSP_ITS ---
Documented by User: Yamilka Aguayo NP, MANAGER [employer] 01/21/21 11:45 Subjective Subjective Patient seen and examined. Had episode of nausea and vomiting this morning which has since resolved. Reports generalized weakness. Denies other symptoms or complaints. Denies chest pain, shortness of breath. Objective Data Objective Data Vital Signs: Vital Signs Temp Pulse Resp BP Pulse Ox 98.5 F 97 16 130/86 H 94 01/21/21 10:10 01/21/21 10:12 01/21/21 11:00 01/21/21 10:12 01/21/21 10:10 Oxygen Delivery Method Room Air Weight: 150 lb 12.739 oz Body Mass Index (BMI) 24.4 Intake & Output: Intake and Output for Last 24 Hours 01/19/21 01/20/21 01/21/21 23:59 23:59 23:59 Intake Total 360 / 360 1073.75 / 1073.75 Output Total 1525 / 1525 2175 / 2175 Balance -1165 / -1165 -1101.25 / -1101.25 Lab / Micro Data Result Diagrams: 01/21/21 06:45 01/21/21 06:45 Labs: Laboratory Results - last 24 hr 01/20/21 01/20/21 01/20/21 15:03 15:03 15:03 WBC 9.5 RBC 2.64 L Hgb 8.5 L Hct 26.4 L MCV 100.0 H MCH 32.2 H MCHC 32.2 RDW Std Deviation 68.8 H RDW Coeff of Pablo 18.7 H Plt Count 469 H MPV 9.5 Immature Gran % (Auto) 0.500 Neut % (Auto) 77.1 H Lymph % (Auto) 8.6 L Douglas % (Auto) 10.2 H Eos % (Auto) 2.7 Baso % (Auto) 0.9 Absolute Neuts (auto) 7.3 Absolute Lymphs (auto) 0.82 L Nucleated RBC % 0 Differential Comment SCANNED Anisocytosis PT 27.0 H INR 2.6 APTT 53.0 H Sodium 139 Potassium 3.7 Chloride 111 H Carbon Dioxide 23.0 Anion Gap 5 BUN 20 H Creatinine 1.86 H Estim Creat Clear Calc 31.16 Est GFR (MDRD) Af Amer 45 L Est GFR (MDRD) Non-Af 37 L BUN/Creatinine Ratio 10.8 Glucose 101 Calcium 8.2 L Magnesium Total Bilirubin 0.80 AST 44 H ALT 58 Alkaline Phosphatase 65 Troponin I < 0.015 B-Natriuretic Peptide Total Protein 6.7 Albumin 2.8 L Globulin 3.9 Albumin/Globulin Ratio 0.7 L Urine Color Urine Clarity Urine pH Ur Specific [place] Urine Protein Urine Glucose (UA) Urine Ketones Urine Occult Blood Urine Nitrite Urine Bilirubin Urine Urobilinogen Ur Leukocyte Esterase Urine RBC Urine WBC Ur Squamous Epith Cells Urine Bacteria Urine Mucus 01/20/21 01/20/21 01/20/21 15:03 15:03 15:45 WBC RBC Hgb Hct MCV MCH MCHC RDW Std Deviation RDW Coeff of Pablo Plt Count MPV Immature Gran % (Auto) Neut % (Auto) Lymph % (Auto) Douglas % (Auto) Eos % (Auto) Baso % (Auto) Absolute Neuts (auto) Absolute Lymphs (auto) Nucleated RBC % Differential Comment Anisocytosis PT INR APTT Sodium Potassium Chloride Carbon Dioxide Anion Gap BUN Creatinine Estim Creat Clear Calc Est GFR (MDRD) Af Amer Est GFR (MDRD) Non-Af BUN/Creatinine Ratio Glucose Calcium Magnesium 2.1 Total Bilirubin AST ALT Alkaline Phosphatase Troponin I B-Natriuretic Peptide 884.2 H Total Protein Albumin Globulin Albumin/Globulin Ratio Urine Color Yellow Urine Clarity Clear Urine pH 7.0 Ur Specific [place] 1.010 Urine Protein 15 H Urine Glucose (UA) Normal Urine Ketones Negative Urine Occult Blood Negative Urine Nitrite Negative Urine Bilirubin Negative Urine Urobilinogen Normal Ur Leukocyte Esterase 25 H Urine RBC 0 SEEN Urine WBC 0-5 SEEN Ur Squamous Epith Cells 0-5 SEEN Urine Bacteria 0 SEEN Urine Mucus 0 SEEN 01/20/21 01/20/21 01/21/21 18:45 21:05 06:45 WBC 9.9 RBC 2.81 L Hgb 9.1 L Hct 27.3 L MCV 97.2 H MCH 32.4 H MCHC 33.3 RDW Std Deviation 66.2 H RDW Coeff of Pablo 18.4 H Plt Count 445 MPV 8.8 Immature Gran % (Auto) 0.600 Neut % (Auto) 76.2 H Lymph % (Auto) 9.7 L Douglas % (Auto) 10.7 H Eos % (Auto) 2.0 Baso % (Auto) 0.8 Absolute Neuts (auto) 7.6 Absolute Lymphs (auto) 0.96 Nucleated RBC % 0 Differential Comment Anisocytosis 2+ PT INR APTT Sodium Potassium Chloride Carbon Dioxide Anion Gap BUN Creatinine Estim Creat Clear Calc Est GFR (MDRD) Af Amer Est GFR (MDRD) Non-Af BUN/Creatinine Ratio Glucose Calcium Magnesium Total Bilirubin AST ALT Alkaline Phosphatase Troponin I < 0.015 < 0.015 B-Natriuretic Peptide Total Protein Albumin Globulin Albumin/Globulin Ratio Urine Color Urine Clarity Urine pH Ur Specific [place] Urine Protein Urine Glucose (UA) Urine Ketones Urine Occult Blood Urine Nitrite Urine Bilirubin Urine Urobilinogen Ur Leukocyte Esterase Urine RBC Urine WBC Ur Squamous Epith Cells Urine Bacteria Urine Mucus 01/21/21 01/21/21 06:45 06:45 WBC RBC Hgb Hct MCV MCH MCHC RDW Std Deviation RDW Coeff of Pablo Plt Count MPV Immature Gran % (Auto) Neut % (Auto) Lymph % (Auto) Douglas % (Auto) Eos % (Auto) Baso % (Auto) Absolute Neuts (auto) Absolute Lymphs (auto) Nucleated RBC % Differential Comment Anisocytosis PT 27.3 H INR 2.6 APTT Sodium 140 Potassium 3.1 L Chloride 108 H Carbon Dioxide 26.0 Anion Gap 6 BUN 17 Creatinine 1.91 H Estim Creat Clear Calc 30.34 Est GFR (MDRD) Af Amer 44 L Est GFR (MDRD) Non-Af 36 L BUN/Creatinine Ratio 8.9 L Glucose 90 Calcium 8.2 L Magnesium Total Bilirubin 1.00 AST 34 ALT 55 Alkaline Phosphatase 64 Troponin I B-Natriuretic Peptide Total Protein 7.2 Albumin 3.0 L Globulin 4.2 Albumin/Globulin Ratio 0.7 L Urine Color Urine Clarity Urine pH Ur Specific [place] Urine Protein Urine Glucose (UA) Urine Ketones Urine Occult Blood Urine Nitrite Urine Bilirubin Urine Urobilinogen Ur Leukocyte Esterase Urine RBC Urine WBC Ur Squamous Epith Cells Urine Bacteria Urine Mucus Micro: Microbiology 01/20/21 15:03 Interface Orders SARS-CoV-2 Antigen (Rapid) - Final Radiography Diagnostic Testing: Radiology Impression Chest X-Ray 01/20/21 15:18 IMPRESSION: Cardiomegaly. Mild degree of vascular congestion and CHF with bibasilar linear atelectasis. Electronically Signed: Wilfred Milligan MD at 15:46 EDT , Service support , Echocardiogram 01/20/21 18:05 Interpretation Summary The study was technically difficult. Left ventricular systolic function is normal. The estimated ejection fraction is 60 %. The left atrium is severely enlarged. The right atrium is mildly enlarged. There is mild mitral annular calcification. Mild diffuse mitral valve thickening. Moderately severe (3+) eccentric mitral valve insufficiency. Moderately severe (3+) tricuspid valve insufficiency. Mild diffuse aortic valve thickening. Mild focal aortic valve calcification. Mild (1+) aortic valve insufficiency. Right ventricular systolic pressure estimated to be 47 mmHg. Unable to assess diastolic dysfunction. Ordering Physician: Trisha Duran Referring Physician: César Chinchilla Performed By: Williams Chavez RCS Physical Exam Const alert, oriented x3 and no apparent distress Orientation / Consciousness: awake, oriented to person, oriented to place and oriented to time HEENT normocephalic and moist oral mucous membranes Eyes PERRL, EOMs intact bilaterally and conjunctivae normal Neck no lymphadenopathy Resp normal respiratory effort and clear to auscultation bilaterally Cardio regular rate Rhythm: abnormal rhythm irregularly irregular Peripheral Pulses: pulses 2+ throughout GI normal to inspection, nondistended, normoactive bowel sounds, non-tender and n on-distended Extremity normal to inspection Skin no rashes or lesions noted Lesions: no lesions Rashes: no rashes Trauma: no lacerations or abrasions Neuro CN's II-XII intact bilaterally, no focal motor deficits, no sensory deficits noted and deep tendon reflexes 2+ bilaterally Psych mental status grossly normal and affect normal Assessment & Plan Assessment/Plan (1) Debility: PLAN: 1. Acute on chronic heart failure with preserved ejection fraction- BNP 884. Chest x-ray with mild vascular congestion. Echocardiogram on admission demonstrates an EF of 60%, moderately severe mitral valve insufficiency, moderately severe tricuspid valve insufficiency, RVSP estimated to be 47 mmHg. 2. Atypical atrial flutter-cardiology following. Off of anticoagulation at this time due to recent GI bleed. Continue beta-asia, calcium channel blocke r and amiodarone with reduced dose. Monitor telemetry. 3. Debility, weakness-patient states worsened following recent admission for anemia. PT/OT. Possible SNF at discharge pending PT/case management follow-up. 4. Recent GI bleed with associated Blood loss anemia on chronic macrocytic anemia- off of aspirin, Coumadin. Recent EGD/colonoscopy without evidence of active bleeding. Continue PPI. Check iron studies/B12/folate. 5. Hypertension-stable, continue current regimen. 6. Hyperlipidemia-continue statin. 7. BPH- on finasteride. 8. Chronic kidney disease stage IIIb-at baseline, trend BMP. DVT prophylaxis-SCDs This patient was seen by ETHEL Grullon under the supervision of Dr. Eagle. Documented by User: Dr. Mehrdad Eagle MD 01/21/21 14:34 Objective Data Lab / Micro Data Result Diagrams: 01/21/21 06:45 01/21/21 06:45 Addendum Addendum: Dr. Eagle: I personally reviewed the chart and examined the patient, and agree with the above findings.-year-old male presenting from home with generalized weakness and cough and is very about 3 days prior to admission. In the ER he was found to have an abnormal EKG concerning for either second or third-degree AV block, cardiology was consulted and felt that he had an atypical or sick atrial flutter with variable AV conduction. We will continue with beta-blockers calcium channel blockers, echo demonstrating EF of 60% with moderately severe mitral valve insufficiency still stress cuspid insufficiency with RVSP of 47 mmHg. He was recently taken off of his anticoagulation due to a GI bleed however his anemia does appear to be stable at this time maintain a hemoglobin of around 9 Visit Charges Inpatient E&M: 39514 Subs Hosp L2
[2021-01-21] MEDS: Potassium Chloride Oral Tablet 20 MEQ 40 MEQ PO (12:38)
[2021-01-21 13:49] LABS: Ferritin 36 ng/mL (26-388); Iron 16 ug/dL (65-175); Iron Binding Capacity,Total 238 ug/dL (250-450); PERCENT IRON SATURATION 6.7 % (15.0-55.0)
[2021-01-21 13:56] LABS: Vitamin B12 1172 pg/mL (211-911)
--- NOTE | 2021-01-21 14:56 | CPS ---
Pt sometimes wears his CPAP @[facility] but does not want to wear one of our machines but would wear O2 if his Sat drops.
[2021-01-21] MEDS: Pravastatin 40 MG Tablet PO (21:48)
[2021-01-21] MEDS: guaiFENesin 10 ML UDC (200MG/10ML) PO (22:00)
[2021-01-22] VITALS (9 sets, daily range): BP systolic 96–126; BP diastolic 67–72; PULSE 81–88; RESP 18–20; TEMP 36.6–37.3; O2SAT 95–99
[2021-01-22] MEDS: Acetaminophen 325 MG Tablet 650 MG PO (00:08)
--- NOTE | 2021-01-22 01:15 | EKG12_ITS ---
Test Reason : RHYTHM CHANGE Blood Pressure : / mmHG Vent. Rate : 085 BPM Atrial Rate : 187 BPM P-R Int : 000 ms QRS Dur : 106 ms QT Int : 440 ms P-R-T Axes : 000 037 003 degrees QTc Int : 523 ms Atrial flutter with variable A-V block Prolonged QT Abnormal ECG When compared with ECG of 21-JAN-2021 03:17, MANUAL COMPARISON REQUIRED, DATA IS UNCONFIRMED Confirmed by MARCE KASPER, ADAM ([id number]), videotape editor CIPRIANO GATES ([id number]) on 01/23/2021 10:25:10 AM Referred By: MACARIO Confirmed By:ADAM ZHENG MD
[2021-01-22 05:25] LABS: Absolute Lymphocyte Count 1.29 X10^3/uL (0.83-4.51); Absolute Neutrophil Count 7.4 X10^3/uL (2.0-7.7); Basophil# 0.08 X10^3/uL; Basophil% 0.8 % (0-1); Eosinophil# 0.54 X10^3/uL; Eosinophils% 5.2 % (0-5); Hematocrit 27.2 % (40-54); Hemoglobin 8.9 g/dL (13.0-16.5); Lymphocyte # 1.29 X10^3/ul (0.83-4.51); Lymphocyte % 12.5 % (19-41); Mean Corp Hgb Conc 32.7 g/dL (32-36); Mean Corpuscular Hgb 32.6 pg (27.0-32.0); Mean Corpuscular Volume 99.6 fL (80-94); Mean Platelet Vol. 8.9 fl (6.2-12.0); Monocyte# 0.93 X10^3/uL; NRBC Flagged by Analyzer 0 % (0-5); Neutrophil # 7.41 X10^3/uL (2.7-7.7); Neutrophil % 72.1 % (47-70); POSITIVE MORPHOLOGY YES; Platelet Count 406 K/mm3 (150-450); RBC Distribution Width CV 18.2 % (11.6-14.6); RBC Distribution Width SD 66.8 fl (35.1-43.9); Red Blood Count 2.73 M/mm3 (4.6-6.2); White Blood Count 10.3 K/mm3 (4.4-11.0)
[2021-01-22 05:28] LABS: Differential Indicated SCAN CRITERIA MET
[2021-01-22 05:35] LABS: International Normalized Ratio 3.1; Prothrombin Time (Protime)PT. 30.9 SECONDS (11.7-14.9)
[2021-01-22 05:39] LABS: Anion Gap 7 (5-15); BUN 23 mg/dL (7-18); BUN/Creat Ratio 9.9 RATIO (10-20); Calcium,Total 7.7 mg/dL (8.5-10.1); Chloride 105 mmol/L (98-107); Creatinine, Serum 2.33 mg/dL (0.70-1.30); EST Glomerular Filtration Rate 29 mL/min (>60); Est Glom Filt Rate - Afr Amer 35 mL/min (>60); Estimated Creatinine Clearance 24.87 ml/min; Glucose 92 mg/dL (74-106); Potassium 3.5 mmol/L (3.5-5.1); Sodium Level 140 mmol/L (136-145)
[2021-01-22] MEDS: hydrALAZINE 25 MG Tablet PO (05:51)
[2021-01-22 05:54] LABS: Anisocytosis 1+; Differential Comment SCANNED
[2021-01-22 05:55] LABS: Hypochromasia 1+
[2021-01-22] MEDS: Ipratropium/Albuterol Sulfate 3 ML AMPUL.NEB INHALATION ×2 (07:14→10:55)
[2021-01-22] MEDS: Potassium Chloride Oral Tablet 20 MEQ 40 MEQ PO (08:53)
[2021-01-22] MEDS: Vitamin B Comp W-C Capsule 1 CAP PO (08:53)
[2021-01-22] MEDS: Iron Polysaccharide Complex 150 MG CAPSULE PO (08:53)
[2021-01-22] MEDS: Pyridoxine HCl 50 MG Tablet PO (08:57)
[2021-01-22] MEDS: Amiodarone 200 MG Tablet 100 MG PO (09:01)
[2021-01-22] MEDS: dilTIAZem CD 120 MG Capsule PO (09:01)
[2021-01-22] MEDS: 0.9% Saline Lock 10 ML Syringe IV (09:01)
[2021-01-22] MEDS: Metoprolol Tartrate 25 MG Tablet 12.5 MG PO (09:03)
[2021-01-22] MEDS: Furosemide 40 MG/4 ML Vial IV (09:03)
[2021-01-22] MEDS: Finasteride 5 MG Tablet PO (09:04)
[2021-01-22] MEDS: Senna Tablet 1 TABLET PO (09:05)
[2021-01-22] MEDS: Cholecalciferol (VIT D3) 25 MCG TABLET (1,000 UNITS) PO (09:05)
[2021-01-22] MEDS: Pantoprazole Sodium 40 MG Tablet PO (09:05)
[2021-01-22] MEDS: Lisinopril 10 MG Tablet PO (09:05)
--- NOTE | 2021-01-22 09:55 | CASEMGMT ---
Addendum entered by [place] Moura 01/22/21 11:28: This RN CM back to room and pt states he would like to f/u with cardiology in the next several weeks to see if they think cardiac rehab would benefit pt and if he has a dx which would qualify him. Pt states no further questions/concerns/needs at this time. Pt has been independent in room. Rosalva GARCIA CM Original Note: Readmission chart review: Pt was initially admitted 01/11-01/14/21 for Acute blood loss anemia. Palliative screening was completed and pt did not qualify at that time. Pt was discharged home with no therapy at that time. Pt returned to [facility] ED on 01/20/21 for worsening weakness since previous discharge. Pt was admitted for debility and arrythmia, which cardiology is calling atypical/'sick' atrial flutter. Pt's meds are being adjusted and pt is requesting cardiac rehab at discharge. Call to [facility] cardiac rehab and per Geovani, Medicare does not pay for rehab unless pt has intervention/ND or unstable angina, etc. He does state that they have a self-pay maintenance rehab program on 8a-12p, if pt has had cardiac rehab in the past. He also states that [facility] has several similar programs that pt could do as well. Pt updated on all at this time, voices understanding. CM to follow for cardiology recommendations as well and will check back with pt after seen by cardiology today. Rosalva GARCIA CM
--- NOTE | 2021-01-22 10:57 | PCM.DC ---
Discharge Instructions Diet Discharge Diet: No restrictions Activity Discharge Activity: Return to Normal Activity Follow Up Care Please Follow Up With: Primary care provider When: Within the next two weeks. Test Results: Test results from this visit will be discussed in further detail at your follow-up appointment, if applicable. Discharge Plan Admission Admit Date/Time: 01/21/21 13:30 Primary Reason for Your Visit: Acute anemia Attending Provider: Mehrdad Eagle Primary Care Provider: César Chinchilla Consulting Providers: Kenny Vega Instructions Patient Instructions: Anemia Discharge Orders/Prescriptions Prescriptions: New amiodarone 200 mg Tablet 100 mg PO DAILY Qty: 15 RF: 0 Continued finasteride 5 mg tablet 5 mg PO DAILY RF: 0 warfarin 4 mg tablet 4 mg PO DAILY RF: 0 isosorbide mononitrate 30 mg tablet extended release 24 hr 30 mg PO DAILY RF: 0 pyridoxine (vitamin B6) 50 mg tablet 50 mg PO DAILY RF: 0 metoprolol tartrate 25 mg tablet 12.5 mg PO BID RF: 0 hydralazine 25 mg tablet 25 mg PO TID RF: 0 diltiazem HCl 120 mg capsule,extended release 24 hr 120 mg PO DAILY Qty: 30 RF: 11 lisinopril 10 MG tablet 10 mg PO BID RF: 0 vitamin B complex 1 EACH capsule 1 cap PO BID RF: 0 denosumab 60 MG/ML syringe 60 mg SQ .[id number] RF: 0 pantoprazole [Protonix] 40 mg tablet,delayed release (DR/EC) 40 mg PO DAILY Qty: 90 RF: 0 Niferex (Sumalate-Quatrefolic) 150 mg iron- 60 mg-1 mg tablet 1 tab PO DAILY Qty: 90 RF: 0 senna 8.6 mg capsule 8.6 mg PO DAILY Qty: 30 RF: 0 pravastatin 40 mg tablet 40 mg PO QHS RF: 0 calcium citrate 200 mg (950 mg) tablet 200 mg PO BID RF: 0 cholecalciferol (vitamin D3) 25 mcg (1,000 unit) tablet 25 mcg PO DAILY RF: 0 nitroglycerin 0.4 mg tablet, sublingual 0.4 mg SL Q5-15M PRN (Reason: chest pain) Qty: 25 RF: 3 Discontinued amiodarone 200 MG tablet 200 mg PO DAILY RF: 0 Referrals / Follow Up: Tremaine Molina MD [STAFF PHYSICIAN] - César Chinchilla MD [Primary Care Provider] - Disposition Disposition (needs filled in before D/C Order can be placed): Home, self care
--- NOTE | 2021-01-22 11:43 | CASEMGMT ---
RADHA PORTER NOTE: Pt screened with [facility] Palliative Care Screening Tool due to Strata 3, pt did not meet criteria. Ana VALDEZ RN CM
--- NOTE | 2021-01-22 11:51 | PHA.DC.MC ---
Pharmacy Service has performed discharge medication reconciliation and counseling for this patient. The patient was counseled on the following discharge medications and changes in medications for homegoing were reviewed. 1. AMIODARONE- DOSE CHANGE The Reason for Use, instructions for use, and potential side effects were reviewed for all new medications. The patient's questions regarding all of their medications were answered. The patient was able to verbally demonstrate an understanding of their discharge medications. Home Medications finasteride 5 mg tablet 5 mg PO DAILY tab 06/03/20 warfarin 4 mg tablet 4 mg PO DAILY tab 06/03/20 isosorbide mononitrate 30 mg tablet,extended release 24 hr 30 mg PO DAILY 10/27/20 metoprolol tartrate 25 mg tablet 12.5 mg PO BID tab 10/27/20 pyridoxine (vitamin B6) 50 mg tablet 50 mg PO DAILY 10/27/20 denosumab 60 mg SQ .[id number] 12/09/20 lisinopril 10 mg PO BID 12/09/20 vitamin B complex 1 cap PO BID 12/09/20 nitroglycerin 0.4 mg sublingual tablet 0.4 mg SL Q5-15M PRN #25 tablet 12/15/20 diltiazem HCl 120 mg capsule,24 hr,extended release 120 mg PO DAILY #30 cap 12/30/20 hydralazine 25 mg tablet 25 mg PO TID tab 12/30/20 Niferex (Sumalate-Quatrefolic) 1 tab PO DAILY #90 tab 01/14/21 pantoprazole [Protonix] 40 mg PO DAILY #90 tab 01/14/21 senna 8.6 mg PO DAILY #30 cap 01/14/21 calcium citrate 200 mg PO BID 01/20/21 cholecalciferol (vitamin D3) 25 mcg PO DAILY 01/20/21 pravastatin 40 mg PO QHS 01/20/21 amiodarone 100 mg PO DAILY #15 tab 01/22/21 The patient's discharge medication list was reviewed for discrepancies and discrepancies were resolved. *NOTE: Also notified pt of importance of following up with provider regarding INR monitoring. Patient verbalized understanding.
--- NOTE | 2021-01-22 12:06 | PCM.DC.SUM ---
Documented by User: Krishna SERRANO 01/22/21 12:17 Providers Date of Admission: 01/21/21 Date of Discharge: 01/22/21 Primary Care Physician: Dr. César Chinchilla MD Consultations 01/20/21 17:32 Consult: Cardiology Routine Consulting Provider: Kenny Vega Reason for Consult: Heart block EMERGENT Consult: No MD Notified: Yes Date Notified:: 01/20/21 Time Notified: 17:32 Method of Notification: Verbal Method of Consult:: In-Person Comments:: Notified by ED Reason For Visit: DEBILITY, HB Diagnosis Discharge Diagnosis (1) Debility: Status: Acute Code(s): R53.81 - Other malaise Medications at Discharge Home Medications finasteride 5 mg tablet 5 mg PO DAILY tab 06/03/20 warfarin 4 mg tablet 4 mg PO DAILY tab 06/03/20 isosorbide mononitrate 30 mg tablet,extended release 24 hr 30 mg PO DAILY 10/27/20 metoprolol tartrate 25 mg tablet 12.5 mg PO BID tab 10/27/20 pyridoxine (vitamin B6) 50 mg tablet 50 mg PO DAILY 10/27/20 denosumab 60 mg SQ .[id number] 12/09/20 lisinopril 10 mg PO BID 12/09/20 vitamin B complex 1 cap PO BID 12/09/20 nitroglycerin 0.4 mg sublingual tablet 0.4 mg SL Q5-15M PRN #25 tablet 12/15/20 diltiazem HCl 120 mg capsule,24 hr,extended release 120 mg PO DAILY #30 cap 12/30/20 hydralazine 25 mg tablet 25 mg PO TID tab 12/30/20 Niferex (Sumalate-Quatrefolic) 1 tab PO DAILY #90 tab 01/14/21 pantoprazole [Protonix] 40 mg PO DAILY #90 tab 01/14/21 senna 8.6 mg PO DAILY #30 cap 01/14/21 calcium citrate 200 mg PO BID 01/20/21 cholecalciferol (vitamin D3) 25 mcg PO DAILY 01/20/21 pravastatin 40 mg PO QHS 01/20/21 amiodarone 100 mg PO DAILY #15 tab 01/22/21 Hospital Course Summary of Care Provided Minutes Spent on Discharge: 35 Hospital Course: 1) Acute on chronic CHF with preserved ejection fraction Chest x-ray demonstrates mild vascular congestion. Echocardiogram demonstrates an EF of 60%, moderate to severe mitral valve insufficiency, moderate to severe tricuspid valve insufficiency and an RVSP of 47 mmHg. Plan; continue lisinopril, Lasix, Lopressor. Follow-up with cardiology within the next 2 weeks. 2) atypical atrial flutter Was taken off of anticoagulation due to recent GI bleed. Patient is hemodynamically stable and hemoglobin has remained at 9. Hospital medicine team and cardiology feel it is appropriate to restart patient on warfarin. Plan; continue beta-asia, calcium channel asia and amiodarone 100 mg. Follow-up with cardiology within the next 2 weeks. 3) History of GI bleed with associated blood loss anemia on chronic macroytic anemia Patient is hemodynamically stable and hemoglobin has remained at 9. Plan; follow-up with primary care provider within the next 2 weeks. 4) HTN Stable, continue home regimen. 5) Hyperlipedmia Stable, continue home statin regimen. 6) BPH Continue finasteride. 7) CKD stage III At baseline. Patient seen by Krishna Russo PA-C, under the supervision of Dr. Eagle. Physical Exam Narrative Patient is a 80-year-old male who is comfortably resting in bed, alert and orient x3. Denies chest pain, shortness of breath, sputum production/mopped assist, palpitations, fever, chills, N/V/D. Const alert, oriented x3 and no apparent distress HEENT normocephalic, head/scalp atraumatic and hearing grossly normal bilaterally Eyes PERRL, EOMs intact bilaterally and conjunctivae normal Neck no lymphadenopathy, supple and no JVD Resp normal respiratory effort, no retractions, no use of accessory muscles and clear to auscultation bilaterally Cardio regular rate, regular rhythm, no murmurs and no JVD GI normal to inspection, nondistended, normoactive bowel sounds, soft to palpation and non-tender Extremity normal to inspection and full ROM Skin no rashes or lesions noted, no wounds and skin turgor normal Neuro CN's II-XII intact bilaterally Psych affect normal ABG / Lab / Microbiology Data Result Diagrams: 01/22/21 05:18 01/22/21 05:18 Laboratory: Laboratory Results - last 24 hr 01/21/21 01/21/21 01/22/21 06:45 13:20 05:18 WBC RBC Hgb Hct MCV MCH MCHC RDW Std Deviation RDW Coeff of Pablo Plt Count MPV Immature Gran % (Auto) Neut % (Auto) Lymph % (Auto) [place] % (Auto) Eos % (Auto) Baso % (Auto) Absolute Neuts (auto) Absolute Lymphs (auto) Nucleated RBC % Differential Comment Hypochromasia Anisocytosis PT 30.9 H INR 3.1 Sodium Potassium Chloride Carbon Dioxide Anion Gap BUN Creatinine Estim Creat Clear Calc Est GFR (MDRD) Af Amer Est GFR (MDRD) Non-Af BUN/Creatinine Ratio Glucose Calcium Iron 16 L TIBC 238 L Iron Saturation 6.7 L Ferritin 36 Vitamin B12 1172 H Folate 24.70 01/22/21 01/22/21 05:18 05:18 WBC 10.3 RBC 2.73 L Hgb 8.9 L Hct 27.2 L MCV 99.6 H MCH 32.6 H MCHC 32.7 RDW Std Deviation 66.8 H RDW Coeff of Pablo 18.2 H Plt Count 406 MPV 8.9 Immature Gran % (Auto) 0.400 Neut % (Auto) 72.1 H Lymph % (Auto) 12.5 L [place] % (Auto) 9.0 Eos % (Auto) 5.2 H Baso % (Auto) 0.8 Absolute Neuts (auto) 7.4 Absolute Lymphs (auto) 1.29 Nucleated RBC % 0 Differential Comment SCANNED Hypochromasia 1+ Anisocytosis 1+ PT INR Sodium 140 Potassium 3.5 Chloride 105 Carbon Dioxide 28.0 Anion Gap 7 BUN 23 H Creatinine 2.33 H Estim Creat Clear Calc 24.87 Est GFR (MDRD) Af Amer 35 L Est GFR (MDRD) Non-Af 29 L BUN/Creatinine Ratio 9.9 L Glucose 92 Calcium 7.7 L Iron TIBC Iron Saturation Ferritin Vitamin B12 Folate Microbiology: Microbiology 01/20/21 15:03 Interface Orders SARS-CoV-2 Antigen (Rapid) - Final D/C Instructions Discharge Diet: No restrictions Discharge Activity: Return to Normal Activity Please Follow Up With: Primary care provider When: Within the next two weeks. Meaningful Use Info Meaningful Use Diagnoses (Choose all that apply): CHF CHF ARIELLE/ARB ordered at discharge?: Yes Documented LVEF (%): 60 Discharge Plan Admission Admit Date/Time: 01/21/21 13:30 Primary Reason for Your Visit: Acute anemia Attending Provider: Mehrdad Eagle Primary Care Provider: César Chinchilla Consulting Providers: Kenny Vega Instructions Patient Instructions: Anemia Discharge Orders/Prescriptions Prescriptions: New amiodarone 200 mg Tablet 100 mg PO DAILY Qty: 15 RF: 0 Continued finasteride 5 mg tablet 5 mg PO DAILY RF: 0 warfarin 4 mg tablet 4 mg PO DAILY RF: 0 isosorbide mononitrate 30 mg tablet extended release 24 hr 30 mg PO DAILY RF: 0 pyridoxine (vitamin B6) 50 mg tablet 50 mg PO DAILY RF: 0 metoprolol tartrate 25 mg tablet 12.5 mg PO BID RF: 0 hydralazine 25 mg tablet 25 mg PO TID RF: 0 diltiazem HCl 120 mg capsule,extended release 24 hr 120 mg PO DAILY Qty: 30 RF: 11 lisinopril 10 MG tablet 10 mg PO BID RF: 0 vitamin B complex 1 EACH capsule 1 cap PO BID RF: 0 denosumab 60 MG/ML syringe 60 mg SQ .[id number] RF: 0 pantoprazole [Protonix] 40 mg tablet,delayed release (DR/EC) 40 mg PO DAILY Qty: 90 RF: 0 Niferex (Sumalate-Quatrefolic) 150 mg iron- 60 mg-1 mg tablet 1 tab PO DAILY Qty: 90 RF: 0 senna 8.6 mg capsule 8.6 mg PO DAILY Qty: 30 RF: 0 pravastatin 40 mg tablet 40 mg PO QHS RF: 0 calcium citrate 200 mg (950 mg) tablet 200 mg PO BID RF: 0 cholecalciferol (vitamin D3) 25 mcg (1,000 unit) tablet 25 mcg PO DAILY RF: 0 nitroglycerin 0.4 mg tablet, sublingual 0.4 mg SL Q5-15M PRN (Reason: chest pain) Qty: 25 RF: 3 Discontinued amiodarone 200 MG tablet 200 mg PO DAILY RF: 0 Referrals / Follow Up: Tremaine Molina MD [STAFF PHYSICIAN] - 02/09/21 10:00 am (Same Appointment that was already set. ) César Chinchilla MD [Primary Care Provider] - 01/27/21 3:10 am (You will not have the other appointment at the office. Please come at 3:10pm and this appointment will also include your INR. ) Disposition Disposition (needs filled in before D/C Order can be placed): Home, self care Documented by User: Dr. Mehrdad Eagle MD 01/22/21 15:27 Providers Date of Admission: 01/21/21 Reason For Visit: DEBILITY, HB Medications at Discharge Home Medications finasteride 5 mg tablet 5 mg PO DAILY tab 06/03/20 warfarin 4 mg tablet 4 mg PO DAILY tab 06/03/20 isosorbide mononitrate 30 mg tablet,extended release 24 hr 30 mg PO DAILY 10/27/20 metoprolol tartrate 25 mg tablet 12.5 mg PO BID tab 10/27/20 pyridoxine (vitamin B6) 50 mg tablet 50 mg PO DAILY 10/27/20 denosumab 60 mg SQ .[id number] 12/09/20 lisinopril 10 mg PO BID 12/09/20 vitamin B complex 1 cap PO BID 12/09/20 nitroglycerin 0.4 mg sublingual tablet 0.4 mg SL Q5-15M PRN #25 tablet 12/15/20 diltiazem HCl 120 mg capsule,24 hr,extended release 120 mg PO DAILY #30 cap 12/30/20 hydralazine 25 mg tablet 25 mg PO TID tab 12/30/20 Niferex (Sumalate-Quatrefolic) 1 tab PO DAILY #90 tab 01/14/21 pantoprazole [Protonix] 40 mg PO DAILY #90 tab 01/14/21 senna 8.6 mg PO DAILY #30 cap 01/14/21 calcium citrate 200 mg PO BID 01/20/21 cholecalciferol (vitamin D3) 25 mcg PO DAILY 01/20/21 pravastatin 40 mg PO QHS 01/20/21 amiodarone 100 mg PO DAILY #15 tab 01/22/21 ABG / Lab / Microbiology Data Result Diagrams: 01/22/21 05:18 01/22/21 05:18 Discharge Plan Admission Admit Date/Time: 01/21/21 13:30 Primary Reason for Your Visit: Acute anemia Attending Provider: Mehrdad Eagle Primary Care Provider: César Chinchilla Consulting Providers: Kenny Vega Instructions Patient Instructions: Anemia Discharge Orders/Prescriptions Prescriptions: New amiodarone 200 mg Tablet 100 mg PO DAILY Qty: 15 RF: 0 Continued finasteride 5 mg tablet 5 mg PO DAILY RF: 0 warfarin 4 mg tablet 4 mg PO DAILY RF: 0 isosorbide mononitrate 30 mg tablet extended release 24 hr 30 mg PO DAILY RF: 0 pyridoxine (vitamin B6) 50 mg tablet 50 mg PO DAILY RF: 0 metoprolol tartrate 25 mg tablet 12.5 mg PO BID RF: 0 hydralazine 25 mg tablet 25 mg PO TID RF: 0 diltiazem HCl 120 mg capsule,extended release 24 hr 120 mg PO DAILY Qty: 30 RF: 11 lisinopril 10 MG tablet 10 mg PO BID RF: 0 vitamin B complex 1 EACH capsule 1 cap PO BID RF: 0 denosumab 60 MG/ML syringe 60 mg SQ .[id number] RF: 0 pantoprazole [Protonix] 40 mg tablet,delayed release (DR/EC) 40 mg PO DAILY Qty: 90 RF: 0 Niferex (Sumalate-Quatrefolic) 150 mg iron- 60 mg-1 mg tablet 1 tab PO DAILY Qty: 90 RF: 0 senna 8.6 mg capsule 8.6 mg PO DAILY Qty: 30 RF: 0 pravastatin 40 mg tablet 40 mg PO QHS RF: 0 calcium citrate 200 mg (950 mg) tablet 200 mg PO BID RF: 0 cholecalciferol (vitamin D3) 25 mcg (1,000 unit) tablet 25 mcg PO DAILY RF: 0 nitroglycerin 0.4 mg tablet, sublingual 0.4 mg SL Q5-15M PRN (Reason: chest pain) Qty: 25 RF: 3 Discontinued amiodarone 200 MG tablet 200 mg PO DAILY RF: 0 Referrals / Follow Up: Tremaine Molina MD [STAFF PHYSICIAN] - 02/09/21 10:00 am (Same Appointment that was already set. ) César Chinchilla MD [Primary Care Provider] - 01/27/21 3:10 am (You will not have the other appointment at the office. Please come at 3:10pm and this appointment will also include your INR. ) Disposition Disposition (needs filled in before D/C Order can be placed): Home, self care Addendum Addendum: Dr. Eagle: I personally reviewed the chart and examined the patient, and agree with the above findings.-year-old male presenting from home with generalized weakness and cough and is very about 3 days prior to admission.? In the ER he was found to have an abnormal EKG concerning for either second or third-degree AV block, cardiology was consulted and felt that he had an atypical or sick atrial flutter with variable AV conduction.? We will continue with beta-blockers calcium channel blockers, echo demonstrating EF of 60% with moderately severe mitral valve insufficiency still stress cuspid insufficiency with RVSP of 47 mmHg.? He was recently taken off of his anticoagulation due to a GI bleed however his anemia does appear to be stable at this time maintain a hemoglobin of around 9. 01/22/2021: Feels much better today, denies any chest pain lightheadedness or dizziness. He was evaluated by physical therapy and did not need to be placed in a half-way. Cardiology felt that he was stable for discharge today on the medication adjustments that they made, consistent with a decrease in his amiodarone dosage. I discussed with him the plan for discharge today and his post understanding of the risk and benefits of going home he would like to go home today. He will need to follow-up with his PCP and cardiology within 1 to 2 weeks. Visit Charges Inpatient E&M: 33212 Disch Hosp
--- NOTE | 2021-01-23 16:45 | CASEMGMT ---
RADHA PORTER Discharge Follow-Up Phone Call. Juliana: Daina Strata: 3 Discharge Date: 01/22/21 Adm Dx: Debility Call to pt to inquire about how he has been doing since being discharged from the hospital. He states, I seem to be doing pretty good. I started to get my strength back again. Pt aware of appts made w/PCP and cardiology. He denies having any questions about the discharge instructions or medications. 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 He states he was not aware it was there and that he has just been cutting the 200 mg in half and taking 100 mg. He was informed that the script was sent to [facility] yesterday and should be ready for pick-up. He states he will check on it. He denies having any questions. Ana VALDEZ RN, CM ?? ?
== END 2021-01-22 12:18 | disposition home or self-care (01) | DRG 291 ==
LOC: ED 16:09 → PCU 16:31
PROVIDERS: Nurse Practitioner Family; Admitting Provider Internal Medicine; Emergency Provider Emergency Medicine; PCP Family Medicine; Visit Provider Family Medicine
DX: I13.0 Hypertensive heart and chronic kidney disease with heart failure and stage 1 through stage 4 chronic kidney disease, or unspecified chronic kidney disease (principal); I50.33 Acute on chronic diastolic (congestive) heart failure; D62 Acute posthemorrhagic anemia; I44.2 Atrioventricular block, complete; I48.4 Atypical atrial flutter; R13.10 Dysphagia, unspecified; R53.81 Other malaise; R01.1 Cardiac murmur, unspecified; D64.9 Anemia, unspecified; E78.5 Hyperlipidemia, unspecified; I25.10 Atherosclerotic heart disease of native coronary artery without angina pectoris; I25.2 Old myocardial infarction; I27.21 Secondary pulmonary arterial hypertension; I36.1 Nonrheumatic tricuspid (valve) insufficiency; I34.0 Nonrheumatic mitral (valve) insufficiency; I48.0 Paroxysmal atrial fibrillation; K57.90 Diverticulosis of intestine, part unspecified, without perforation or abscess without bleeding; K21.9 Gastro-esophageal reflux disease without esophagitis; M19.90 Unspecified osteoarthritis, unspecified site; N18.32 Chronic kidney disease, stage 3b; N40.0 Benign prostatic hyperplasia without lower urinary tract symptoms; Z87.442 Personal history of urinary calculi; Z87.19 Personal history of other diseases of the digestive system; Z85.46 Personal history of malignant neoplasm of prostate; Z95.5 Presence of coronary angioplasty implant and graft; Z79.01 Long term (current) use of anticoagulants; Z79.899 Other long term (current) drug therapy
CPT/HCPCS: 36415; 71045; 80048; 80053; 81001; 82607; 82728; 82746; 83540; 83550; 83735; 83880; 84484; 85025; 85027; 85610; 85730; 87426; 92610; 93005; 93306; 94640; 97110; 97165; 97535; 97802; 99285; J7030; J7040; Q9957; A4216; J1940; J2405; J3490

== ENCOUNTER → 2021-01-27 16:07 | Outpatient (CLI) | payer MEDICARE, OTHER, SELFPAY ==
[2021-01-20 16:38] VITALS: BMI 24.4
[2021-01-27 18:05] LABS: Absolute Lymphocyte Count 1.43 X10^3/uL (0.83-4.51); Absolute Neutrophil Count 6.9 X10^3/uL (2.0-7.7); Basophil# 0.09 X10^3/uL; Basophil% 0.9 % (0-1); Eosinophil# 0.23 X10^3/uL; Eosinophils% 2.4 % (0-5); Hematocrit 30.3 % (40-54); Hemoglobin 9.5 g/dL (13.0-16.5); Lymphocyte # 1.43 X10^3/ul (0.83-4.51); Lymphocyte % 14.7 % (19-41); Mean Corp Hgb Conc 31.4 g/dL (32-36); Mean Platelet Vol. 9.5 fl (6.2-12.0); Monocyte# 1.02 X10^3/uL; Monocyte% 10.5 % (0-10); NRBC Flagged by Analyzer 0 % (0-5); Neutrophil # 6.91 X10^3/uL (2.7-7.7); Neutrophil % 71.1 % (47-70); POSITIVE MORPHOLOGY YES; Platelet Count 509 K/mm3 (150-450); RBC Distribution Width CV 17.8 % (11.6-14.6); RBC Distribution Width SD 65.3 fl (35.1-43.9); Red Blood Count 3.06 M/mm3 (4.6-6.2); White Blood Count 9.7 K/mm3 (4.4-11.0)
[2021-01-27 18:07] LABS: Differential Indicated SCAN CRITERIA MET
[2021-01-27 18:21] LABS: International Normalized Ratio 2.3; Prothrombin Time (Protime)PT. 24.6 SECONDS (11.7-14.9)
[2021-01-27 18:39] LABS: ALB/GLOB Ratio 0.7 RATIO (0.9-2.4); AST(SGOT) 45 U/L (15-37); Alanine Aminotransfer ALT/SGPT 53 U/L (16-61); Albumin, Serum 3.2 g/dL (3.2-5.0); Alkaline Phosphatase 66 U/L (45-117); Anion Gap 9 (5-15); BUN 28 mg/dL (7-18); Calcium,Total 8.7 mg/dL (8.5-10.1); Chloride 105 mmol/L (98-107); Creatinine, Serum 2.15 mg/dL (0.70-1.30); EST Glomerular Filtration Rate 32 mL/min (>60); Est Glom Filt Rate - Afr Amer 38 mL/min (>60); Ferritin 31 ng/mL (26-388); Globulin 4.3 g/dL (2.2-4.2); Glucose 82 mg/dL (74-106); Potassium 3.9 mmol/L (3.5-5.1); Protein, Total 7.5 g/dL (6.4-8.2); Sodium Level 138 mmol/L (136-145)
[2021-01-27 18:45] LABS: Anisocytosis 1+; Differential Comment SCANNED
== END ==
PROVIDERS: PCP Family Medicine; Referring Provider Family Medicine; Visit Provider Family Medicine
DX: I48.91 Unspecified atrial fibrillation (principal); N18.30 Chronic kidney disease, stage 3 unspecified; D62 Acute posthemorrhagic anemia
CPT/HCPCS: 36415; 80053; 82728; 85025; 85610

== ENCOUNTER → 2021-02-04 10:55 | Outpatient (CLI) | payer MEDICARE, OTHER, SELFPAY ==
[2021-01-20 16:38] VITALS: BMI 24.4
[2021-02-04 12:15] LABS: Hematocrit 28.8 % (40-54); Hemoglobin 9.1 g/dL (13.0-16.5)
[2021-02-04 12:26] LABS: International Normalized Ratio 3.3; Prothrombin Time (Protime)PT. 32.4 SECONDS (11.7-14.9)
== END ==
PROVIDERS: PCP Family Medicine; Referring Provider Family Medicine; Visit Provider Family Medicine
DX: I48.91 Unspecified atrial fibrillation (principal)
CPT/HCPCS: 36415; 85014; 85018; 85610

== ENCOUNTER → 2021-02-12 08:40 | Outpatient (CLI) | payer MEDICARE, OTHER, SELFPAY ==
[2021-02-09 09:48] VITALS: BMI 24.4
[2021-02-12 10:24] LABS: Hemoglobin 9.3 g/dL (13.0-16.5)
[2021-02-12 10:37] LABS: International Normalized Ratio 2.1; Prothrombin Time (Protime)PT. 22.6 SECONDS (11.7-14.9)
== END ==
PROVIDERS: PCP Family Medicine; Referring Provider Family Medicine; Visit Provider Family Medicine
DX: I48.91 Unspecified atrial fibrillation (principal)
CPT/HCPCS: 36415; 85018; 85610

== ENCOUNTER → 2021-02-25 14:02 | Outpatient (CLI) | payer MEDICARE, OTHER, SELFPAY ==
[2021-02-09 09:48] VITALS: BMI 24.4
[2021-02-25 17:58] LABS: International Normalized Ratio 3.8; Prothrombin Time (Protime)PT. 36.3 SECONDS (11.7-14.9)
== END ==
PROVIDERS: PCP Family Medicine; Visit Provider Family Medicine
DX: I48.91 Unspecified atrial fibrillation (principal)
CPT/HCPCS: 36415; 85610

== ENCOUNTER → 2021-03-13 15:24 | Outpatient (CLI) | payer MEDICARE, OTHER, SELFPAY ==
[2021-02-09 09:48] VITALS: BMI 24.4
[2021-03-13 17:30] LABS: Hemoglobin 10.7 g/dL (13.0-16.5)
[2021-03-13 17:50] LABS: International Normalized Ratio 2.5; Prothrombin Time (Protime)PT. 26.5 SECONDS (11.7-14.9)
[2021-03-13 17:54] LABS: AST(SGOT) 61 U/L (15-37); Alanine Aminotransfer ALT/SGPT 92 U/L (16-61); Albumin, Serum 3.4 g/dL (3.2-5.0); Alkaline Phosphatase 94 U/L (45-117); Bilirubin, Direct 0.12 mg/dL (0.00-0.30); Cholesterol 129 mg/dL (200); Globulin 3.8 g/dL (2.2-4.2); High Density Lipoprotein 54 mg/dL; Protein, Total 7.2 g/dL (6.4-8.2); Triglycerides 84 mg/dL; Very Low Density Lipoprotein 17 mg/dL (5-40)
== END ==
PROVIDERS: Physician Assistant Medical; PCP Family Medicine; Visit Provider Family Medicine
DX: E78.00 Pure hypercholesterolemia, unspecified (principal); E78.5 Hyperlipidemia, unspecified; I48.91 Unspecified atrial fibrillation
CPT/HCPCS: 36415; 80061; 80076; 85018; 85610

== ENCOUNTER 2021-04-21 11:00 | Outpatient (RCR) | payer MEDICARE, OTHER, SELFPAY ==
[2021-01-20 16:38] VITALS: BMI 24.4
--- NOTE | 2021-02-03 11:58 | HP.PTEVAL ---
Patient's Visit Information RICHIE HANSEN is a 80 year old M referred to Physical Therapy by Dr. César Chinchilla MD with a diagnosis of Debility from Hospitalization. Date of Evaluation: 02/03/21 Physical Therapist: Karen Phelps DPT - Visit Plan Frequency: 2x /Week Duration: 4 Weeks Plan: Aquatic- focus on endurance, proprioception, LE and core strength/stabilization with functional mobility - Subjective Patient reports that he found out that he was anemic and required two units of blood and has noticed a lot of weakness since then. This started about 2-3 weeks ago. He has left foot pain and right knee pain- he has also has back pain. Has had 3 spine surgeries- last one was 4-5 years ago. He was in the hospital for 3 days and then 3 more. He was having a hard time getting out of bed. Lives alone- single story home- 2 steps to enter with a hand rail. He does drive. Is fully I with all of his ADL's has just been weak and slow to where he was prior. Before he was active and now he is more sedentary. Feels he is limited with fatigue but his left foot is really bad. 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 Sleep: disturbed hard to find a comfortable position. Does have some LOB but no falls. Does use a cane during the day sometimes as needed but did not bring it today. The more he is up on the left foot the more he uses the cane. Does feel he is regaining some strength but wants to be able to do home. Feels that he is 30% back to his normal activities. He does not have an exercise routine more just household activities. Pain in the left foot is right across the top Worst: 6/10 Agg: being up on it, sleep Eases: medication and resting Best: 0/10. Describes the pain as achy. Right Knee: the whole knee joint- has not had x-rays. Worst: 5/10 Best: 0/10- describes as achy. Lumbar: always has some dull and achy- had a fusion- bothers him more at night. PMHx/Meds: see list from hospitalization 01/21/2021. - Objective Posture: FH, RS, increased kyphosis- in both sitting and standing- can correct with tactile cues but does not maintain. Gait: decreased stance on the left LE with poor heel/toe pattern- slow lenard- SOB with ambulate >150 feet. Stairs: asc/desc 8 recip with 1 HR- descent uses gravity and requires UE for propulsion for ascend. HR/TR: unable on Left due to brace. SLS: weight shift but unable to SLS. Balance: see FGA. ROM: WFL in all planes. Strength: Core: fair minus, Hip: 4/5 throughout, Knee: 4+/5 Ankle: 4+/5 in available range. Flex: HS: severe, Gastroc: severe - Balance Scores Functional Gait Assessment Score: 12 % Disability: 60.0000 - Goals Goal 1:: Patient will be I with HEP and progression Goal Time Frame: 4-6 Weeks Goal 2:: Patient will asc/desc 8 stairs recip with 1 HR and good technique Goal Time Frame: 4-6 Weeks Goal 3:: Patient will ambulate >300 feet with no SOB Goal Time Frame: 4-6 Weeks Goal 4:: Patient will report back to 100% of energy prior to hospital admission Goal Time Frame: 4-6 Weeks - Rehabilitation Potential Physical Therapy Diagnosis: Patient presents with hypomobility- he has decreased strength, flexibility, proprioception, LE and core strength/stabilization s/p hospital admission leading to poor endurance and ability to complete ADL's easily. Rehabilitation Potential: Good - Anticipated Interventions Patient/Client Instruction: Educate patient on: Benefits of Fitness Program Therapeutic Exercise to Include: Strength training, Endurance training, Balance training, Body mechanics, Postural training, Flexibilty training, Gait and locomotor training, Neuromotor development, In an aquatic setting, Dynamic Lumbar Stabilization For the Purpose of:: To improve muscle performance and motor function Thank you for the opportunity to evaluate your patient. For Medicare and Medicare HMO plans, please review the plan of care and approve it. It will need to be FAXED BACK to us at [phone] for Medicare purposes. For Medicare only, by signing this I certify the plan of care. Please let me know if there are questions or concerns regarding this plan of care. Physician Signature: Date:
--- NOTE | 2021-03-05 12:39 | HP.PTREVAL ---
Dr. César Chinchilla MD, It has been my pleasure to treat RICHIE HANSEN over the last 9 visits for Debility from Hospitalization. Please see the progress note below for an update on the physical therapy plan of care! Subjective: I am ready to transfer to land ex's now Objective/Function: Pt is able to ascend 8 stairs with the use of 2 hands. Pt is able to ambulate 340 feet with supervision. Pt feels 50% improvement at this time. Pt is progressing well toward Rx goals but would benefit from further skilled PT for strengthening and wndurance Plan Plan: Transition POC to land ex's at this time Goals Goal 1:: Patient will be I with HEP and progression Goal Time Frame: 4-6 Weeks Goal Progress: Progressing Goal 2:: Patient will asc/desc 8 stairs recip with 1 HR and good technique Goal Time Frame: 4-6 Weeks Goal Progress: Progressing Goal 3:: Patient will ambulate >300 feet with no SOB Goal Time Frame: 4-6 Weeks Goal Progress: Goal Met Goal 4:: Patient will report back to 100% of energy prior to hospital admission Goal Time Frame: 4-6 Weeks Goal Progress: Progressing Anticipated Interventions Patient/Client Instruction: Educate patient on: Benefits of Fitness Program Therapeutic Exercise to Include: Strength training, Endurance training, Balance training, Body mechanics, Postural training, Flexibilty training, Gait and locomotor training, Neuromotor development, In an aquatic setting, Dynamic Lumbar Stabilization For the Purpose of:: To improve muscle performance and motor function Please do not hesitate to contact me at [phone] by phone or if you have questions or concerns regarding this new plan of care! Sincerely, Ted Santana, PT, ATC
--- NOTE | 2021-04-07 11:39 | HP.PTREVAL_ITS ---
Dr. César Chinchilla MD, It has been my pleasure to treat RICHIE HANSEN over the last 15 visits for Debility from Hospitalization. Please see the progress note below for an update on the physical therapy plan of care! Subjective: Patient reports that he is better- he feels that he is 50% back to his baseline. He wants to be able to walk longer distances and do better with stairs. He has stairs at home but does not have to do them on a daily basis. No falls or loss of balance. He might want to continue therapy for the next few weeks then be discharge to a home exercise program- he has a basement full of equipment to work out on (bike, TM, total gym)- he use to use it then he moved so its not accessible. He always has back pain and left foot pain- which has gotten better but not fully improved. Plans to have an operation on his left foot this winter- Dr. Chavez. Objective/Function: Posture: FH, RS, increased kyphosis- in both sitting and standing- can correct with verbal cues but does not maintain. Gait: decreased stance on the left LE with poor heel/toe pattern- slow lenard- AFO on the left- 6 min walk test: 303 meters. Stairs: asc/desc 8 recip with 1 HR fair form HR/TR: unable on Left due to brace. SLS: weight shift but unable to SLS. Balance: see FGA. ROM: WFL in all planes. Strength: Core: fair minus, Hip: 4/5 throughout, Knee: 4+/5 Ankle: 4+/5 in available range. Flex: HS: severe, Gastroc: severe. Special Test: 11.88 TUG Test, Sit to printing equipment mechanic 30 sec: 10 Plan Plan: Transition POC to land ex's at this time. Focus on endurance, proprioception, LE and core strength/stabilization with functional mobility Balance/Gait/Functional tests - Balance/Special Test Scores Functional Gait Assessment Score: 17 % Disability: 43.3400 Lower Extremity Functional Score: 58 TUG Test Time Seconds: 11.88 Tug Test: <20 sec.=mostly independent 30 Second Chair Rise Test Seconds: 10 Goals Goal 1:: Patient will be I with HEP and progression Goal Time Frame: 4-6 Weeks Goal Progress: Progressing Goal 2:: Patient will asc/desc 8 stairs recip with 1 HR and good technique Goal Time Frame: 4-6 Weeks Goal Progress: Goal Met Goal 3:: Patient will improve sit to stand to 14 Goal Time Frame: 4-6 Weeks Goal Progress: Progressing Goal 4:: Patient will report back to 100% of energy prior to hospital admission Goal Time Frame: 4-6 Weeks Goal Progress: Progressing Goal 5:: Patient will ambulate 527 meters in 6 min Goal Time Frame: 4-6 Weeks Anticipated Interventions Patient/Client Instruction: Educate patient on: Benefits of Fitness Program Therapeutic Exercise to Include: Strength training, Endurance training, Balance training, Body mechanics, Postural training, Flexibilty training, Gait and locomotor training, Neuromotor development, In an aquatic setting, Dynamic Lumbar Stabilization For the Purpose of:: To improve muscle performance and motor function Please do not hesitate to contact me at [phone] by phone or if you have questions or concerns regarding this new plan of care! Sincerely, Karen Phelps DPT
--- NOTE | 2021-04-21 12:20 | HP.PTREVAL ---
Dr. César Chinchilla MD, It has been my pleasure to treat RICHIE HANSEN over the last 19 visits for Debility from Hospitalization. Please see the progress note below for an update on the physical therapy plan of care! Subjective: Pt. reports having difficulty with his new brace. Pt. to follow up with Yaya Zhou. Pt. reports being 50% better overall. His biggest complaint today is of his new brace and the pain that it is causing him at his ankle. He reports difficulty walking due to pain. HE repots no redness, but the new positioning of his ankle causes pain. Objective/Function: Pt. has good strength in BLEs 5-/5 through quads and HS, 4+/5 B hip strength. He has 4+/5 throughout BUEs as well. 30 sec sit to stand rep test- 11 reps without UE assistance. stairs: pt. is able to negotiate with reciprocal pattern with use 1 HR, increase in L foot pain during loaded phase. GAIT: Pt. ambulates without AD, but has antalgic pattern during L stance phase. Pt. reports being unable to complete 6 MWT today due to foot/ankle pain. Plan Plan: Due to his pain with his new brace, patient will be on hold for the time being until new brace is made, or tolerance to bracing has occurred. Pt. is to keep with his HEP at home. Once he has a better tolerance or new bracing I will have him come back and be re assessed to determine if further PT is warranted. Balance/Gait/Functional tests - Balance/Special Test Scores Functional Gait Assessment Score: 17 % Disability: 43.3400 Lower Extremity Functional Score: 59 TUG Test Time Seconds: 11.88 Tug Test: <20 sec.=mostly independent 30 Second Chair Rise Test Seconds: 10 Goals Goal 1:: Patient will be I with HEP and progression Goal Time Frame: 4-6 Weeks Goal Progress: Progressing Goal 2:: Patient will asc/desc 8 stairs recip with 1 HR and good technique Goal Time Frame: 4-6 Weeks Goal Progress: Goal Met Goal 3:: Patient will improve sit to stand to 14 Goal Time Frame: 4-6 Weeks Goal Progress: Progressing Goal 4:: Patient will report back to 100% of energy prior to hospital admission Goal Time Frame: 4-6 Weeks Goal Progress: Progressing Goal 5:: Patient will ambulate 527 meters in 6 min Goal Time Frame: 4-6 Weeks Goal Progress: Progressing Anticipated Interventions Patient/Client Instruction: Educate patient on: Benefits of Fitness Program Therapeutic Exercise to Include: Strength training, Endurance training, Balance training, Body mechanics, Postural training, Flexibilty training, Gait and locomotor training, Neuromotor development, In an aquatic setting, Dynamic Lumbar Stabilization For the Purpose of:: To improve muscle performance and motor function Please do not hesitate to contact me at [phone] by phone or if you have questions or concerns regarding this new plan of care! Sincerely, CASIMIRO JuarezT
== END 2021-04-21 19:00 | disposition home or self-care (01) ==
LOC: PT 11:00
PROVIDERS: PCP Family Medicine; Referring Provider Family Medicine; Visit Provider Family Medicine
DX: R53.1 Weakness (principal)
CPT/HCPCS: 97110; 97113; 97162; 97164

== ENCOUNTER → 2021-04-23 11:55 | Outpatient (CLI) | payer MEDICARE, OTHER, SELFPAY ==
[2021-04-23 15:04] LABS: Hemoglobin 12.8 g/dL (13.0-16.5)
[2021-04-23 15:20] LABS: AST(SGOT) 89 U/L (15-37); Alanine Aminotransfer ALT/SGPT 137 U/L (16-61); Albumin, Serum 3.7 g/dL (3.2-5.0); Alkaline Phosphatase 71 U/L (45-117); Bilirubin, Direct 0.16 mg/dL (0.00-0.30); Globulin 3.9 g/dL (2.2-4.2); Protein, Total 7.6 g/dL (6.4-8.2)
[2021-04-23 15:21] LABS: International Normalized Ratio 2.1; Prothrombin Time (Protime)PT. 23.1 SECONDS (11.7-14.9)
== END ==
PROVIDERS: Nurse Practitioner Family; PCP Family Medicine; Visit Provider Family Medicine
DX: I48.91 Unspecified atrial fibrillation (principal); R74.8 Abnormal levels of other serum enzymes
CPT/HCPCS: 36415; 80076; 85018; 85610

== ENCOUNTER 2021-05-06 13:55 | Observation (INO) | payer MEDICARE, OTHER, SELFPAY ==
[2021-05-06] VITALS (10 sets, daily range): BP systolic 140–162; BP diastolic 94–102; PULSE 71–92; RESP 13–20; TEMP 36.7–37.1; O2SAT 95–98; BMI 23.7; BMI 23.3
--- NOTE | 2021-05-06 14:00 | EKG12_ITS ---
Test Reason : CP Blood Pressure : / mmHG Vent. Rate : 092 BPM Atrial Rate : 092 BPM P-R Int : 144 ms QRS Dur : 102 ms QT Int : 406 ms P-R-T Axes : 059 003 065 degrees QTc Int : 502 ms Normal sinus rhythm Nonspecific ST abnormality Abnormal ECG Confirmed by RODOLFO KASPER, ELI ([id number]), editor greeting card CIPRIANO GATES ([id number]) on 05/11/2021 12:42:57 PM Referred By: LUX/PATRICK Confirmed By:ELI REYNOLDS MD
--- NOTE | 2021-05-06 16:19 | RAD_ITS ---
STUDY: X-RAY CHEST REASON FOR EXAM: Male, 80 years old. Chest pain. TECHNIQUE: Single AP portable view of the chest. COMPARISON: 01/20/2021. FINDINGS: The lungs are well expanded. There is stable density at the right lung base thought to be atelectatic or scarring. There is no demonstrated pleural abnormality. Normal size heart. Normal mediastinum and nasrin. Normal visualized pulmonary arteries. There is atherosclerotic calcification of the aortic arch with tortuosity. The thoracic spine is obscured by the mediastinum. There is degenerative osteoarthritis of the bilateral shoulders. There is no demonstrated abnormality of the visualized soft tissue structures of the upper abdomen. RAD/Chest 1 View (Portable) IMPRESSION: No acute cardiopulmonary disease. Electronically Signed: Christos Ramos DO at 16:37 EDT Tel [phone], Service support ,
--- NOTE | 2021-05-06 16:20 | EX.ED.DYSGE1 ---
HPI History of Present Illness Chief Complaint: Dizziness Informant: patient Narrative Narrative: Patient is a 80-year-old male with multiple comorbidities presenting with chest pain and dizziness. Patient has been having intermittent pain in his left side of his chest for the past 2 weeks. He states it fluctuates between being a pain and a discomfort. He is coming in the ER today however because he is been having worsening dizziness over the past few days. States he feels like he is on a boat but is worried that if he tried move too much he might pass out. He does have history of vertigo and states it feels like a similar episodes of vertigo. He describes it as a room spinning sensation. Today has had associated nausea and dry heaves. Did not take any medication for the vertigo because he states he did not have any. He denies any shortness of breath or difficulty breathing. Denies any head injury or vision changes. No other complaints at this time. Symptoms are worse when he first gets up or when he looks to the right. [facility] Medical History Atherosclerotic heart disease of [place] coronary artery without angina pectoris Atrial fibrillation Atrial flutter BPH (benign prostatic hyperplasia) Cancer Chronic kidney disease Coronary artery disease CPAP (continuous positive airway pressure) dependence Essential (primary) hypertension GERD (gastroesophageal reflux disease) GI bleed (2012) History of electrophysiologic study (08/08/00) History of hyperthyroidism HLD (hyperlipidemia) Hypertension Kidney disease Kidney stones Myocardial infarct Non-rheumatic tricuspid valve insufficiency Non-smoker Old myocardial infarction Osteoarthritis Paroxysmal atrial fibrillation Secondary pulmonary arterial hypertension Home Medications finasteride 5 mg tablet 5 mg PO DAILY tab 06/03/20 [History Last Taken 01/20/21] warfarin 4 mg tablet 4 mg PO DAILY tab 06/03/20 [History Last Taken 01/19/21] isosorbide mononitrate 30 mg tablet,extended release 24 hr 30 mg PO DAILY 10/27/20 [History Last Taken 01/20/21] metoprolol tartrate 25 mg tablet 12.5 mg PO BID tab 10/27/20 [History Last Taken 01/20/21] pyridoxine (vitamin B6) 50 mg tablet 50 mg PO DAILY 10/27/20 [History Last Taken 01/19/21] denosumab 60 mg SQ [id number] 12/09/20 [History Last Taken 12/05/20] lisinopril 20 mg PO DAILY 12/09/20 [History Last Taken 01/20/21] vitamin B complex 1 cap PO BID 12/09/20 [History Last Taken 01/20/21] nitroglycerin 0.4 mg sublingual tablet 0.4 mg SL Q5-15M PRN #25 tablet 12/15/20 [Rx Last Taken Unknown] hydralazine 25 mg tablet 25 mg PO TID tab 12/30/20 [History Last Taken Unknown] Niferex (Sumalate-Quatrefolic) 1 tab PO DAILY #90 tab 01/14/21 [Rx Last Taken 01/20/21] pantoprazole [Protonix] 40 mg PO DAILY #90 tab 01/14/21 [Rx Last Taken 01/20/21] senna 8.6 mg PO DAILY #30 cap 01/14/21 [Rx Last Taken Unknown] calcium citrate 200 mg PO BID 01/20/21 [History Last Taken 01/20/21] cholecalciferol (vitamin D3) 25 mcg PO DAILY 01/20/21 [History Last Taken 01/19/21] meclizine 12.5 mg tablet 12.5 mg PO DAILY 03/19/21 [History Last Taken Unknown] pravastatin 40 mg tablet 40 mg PO QHS #90 tab 04/06/21 [Rx Last Taken Unknown] amiodarone 200 mg PO DAILY 05/06/21 [History Last Taken Unknown] diltiazem HCl [Cartia XT] 180 mg PO DAILY 05/06/21 [History Last Taken Unknown] ipratropium bromide 2 spray INTRANASAL PRN PRN 05/06/21 [History Last Taken Unknown] warfarin 2 mg PO FR 05/06/21 [History Last Taken Unknown] Allergy/AdvReac Type Severity Reaction Status Date / Time diclofenac Allergy rash Verified 05/06/21 14:00 prednisone Allergy Rash Verified 05/06/21 14:00 Family History Father Cancer Prostate cancer Mother Hypertension Sister Hypertension Surgical History History of back surgery History of cardioversion (06/18/19) History of coronary artery stent placement (08/04/00) History of hemorrhoidectomy History of hernia repair History of left heart catheterization (07/17/12) History of Zenaida fundoplication History of radiofrequency ablation procedure for cardiac arrhythmia (11/11/11) Social History Smoking Status: Never smoker alcohol intake: never substance use type: does not use caffeine: No ROS ROS ED Constitutional Constitutional ED: Reports other Details: dizziness ; Denies chills, fatigue, fever(s) or weakness Eyes Eyes: Denies blurry vision or change in vision ENT ENT ED: Reports other Details: nasal congestion ; Denies ear pain or rhinorrhea Cardiovascular Cardiovascular: Reports chest pain; Denies palpitations Respiratory/Chest Respiratory/Chest: Denies dyspnea Gastrointestinal Gastrointestinal: Denies abdominal pain, nausea or vomiting Genitourinary Genitourinary ED: Denies decreased urination or dysuria Musculoskeletal Musculoskeletal: Denies arthralgias, extremity pain or myalgias Integumentary Denies new lesions or rash Neurologic Neurologic: Denies headache(s), paresthesias or weakness Psychiatric Psychiatric: Denies anxiety or depression Hematologic/Lymphatic Hematologic/Lymphatic: Denies easy bleeding or easy bruising EXAM Physical Exam Const Vital Signs: 05/06/21 13:56 05/06/21 16:04 05/06/21 17:00 Temperature 98.1 F Temperature Source Temporal Pulse Rate 92 90 82 Respiratory Rate 15 20 H 16 Respiratory Effort Normal Non-Labored Blood Pressure 145/95 H 140/97 H Blood Pressure Mean 111 111 Pulse Ox 98 98 97 Oxygen Delivery Method Room Air Room Air Room Air 05/06/21 18:16 05/06/21 19:00 05/06/21 20:00 Temperature Temperature Source Pulse Rate 89 89 89 Respiratory Rate 13 18 19 H Respiratory Effort Blood Pressure 161/102 H 153/96 H 162/97 H Blood Pressure Mean 121 115 118 Pulse Ox 97 97 95 Oxygen Delivery Method Room Air Room Air Room Air 05/06/21 21:00 Temperature Temperature Source Pulse Rate 71 Respiratory Rate 18 Respiratory Effort Blood Pressure 140/94 H Blood Pressure Mean 109 Pulse Ox 96 Oxygen Delivery Method Room Air Positive well nourished and well developed General Appearance ED: well developed HEENT Reports TM's clear and moist mucous membranes Tympanic Membrane ED: Yes TM's clear Eyes PERRL and EOMs intact bilaterally Eyes Narrative: Slight nystagmus with rightward gaze, patient has difficulty looking to the right secondary to symptoms Neck no lymphadenopathy, supple and no JVD Chest Wall inspection of chest normal Resp normal respiratory effort and clear to auscultation bilaterally Cardio regular rate, regular rhythm and no murmurs GI normal to inspection, nondistended, normoactive bowel sounds Back/Spine no CVA tenderness Extremity normal to inspection General Extremety ED: Negative for edema General Extremity: Negative for edema Neuro oriented x3 and CN's II-XII intact bilaterally Neuro Narrative: Normal coordination on [id number]. Sensorium / Orientation: alert Motor Exam: strength 5/5 throughout; Negative for general weakness Psych mental status grossly normal Skin no rashes or lesions noted and no wounds MDM MDM MDM Narrative Medical decision making narrative: Patient evaluated for worsening dizziness. Is worse when he gets up or moves his head especially to the right. Patient does have nystagmus on exam that is exacerbated by right head movement. He is given meclizine with no improvement. Is been given oral Valium and continues to be too symptomatic to be able to stand. Patient not feel safe going home. He will be admitted for intractable vertigo. He is found to have a subtherapeutic INR of 1.8. His NIH is 0 and I do not think this is central vertigo. He is not have any truncal ataxia or loss of coordination. He does not have any vision changes. He has a normal troponin and no acute changes in his EKG. I do not think ACS is the cause of his chest pain for the past 2 weeks. Patient's creatinine is elevated at 1.91 but this appears to be his baseline. Patient is agreeable with admission. Lab Data Attestation: I reviewed the patient's lab results. Labs: Laboratory Results - last 24 hr 05/06/21 05/06/21 05/06/21 16:02 16:02 16:02 WBC 10.6 RBC 3.96 L Hgb 13.3 Hct 39.0 L MCV 98.5 H MCH 33.6 H MCHC 34.1 RDW Std Deviation 71.4 H RDW Coeff of Pablo 19.5 H Plt Count 286 MPV 10.5 Immature Gran % (Auto) 0.400 Neut % (Auto) 87.1 H Lymph % (Auto) 5.5 L [place] % (Auto) 6.4 Eos % (Auto) 0.1 Baso % (Auto) 0.5 Absolute Neuts (auto) 9.2 H Absolute Lymphs (auto) 0.58 L Nucleated RBC % 0 Differential Comment SCANNED Platelet Estimate ADEQUATE Anisocytosis 2+ PT 19.7 H INR 1.8 Sodium 138 Potassium 4.0 Chloride 108 H Carbon Dioxide 26.0 Anion Gap 4 L BUN 37 H Creatinine 1.91 H Estim Creat Clear Calc 30.34 Est GFR (MDRD) Af Amer 44 L Est GFR (MDRD) Non-Af 36 L BUN/Creatinine Ratio 19.4 Glucose 104 Calcium 8.9 Troponin I High Sens 12 Urine Color Urine Clarity Urine pH Ur Specific [place] Urine Protein Urine Glucose (UA) Urine Ketones Urine Occult Blood Urine Nitrite Urine Bilirubin Urine Urobilinogen Ur Leukocyte Esterase Urine RBC Urine WBC Ur Squamous Epith Cells Urine Bacteria Urine Mucus 05/06/21 20:35 WBC RBC Hgb Hct MCV MCH MCHC RDW Std Deviation RDW Coeff of [place] Plt Count MPV Immature Gran % (Auto) Neut % (Auto) Lymph % (Auto) [place] % (Auto) Eos % (Auto) Baso % (Auto) Absolute Neuts (auto) Absolute Lymphs (auto) Nucleated RBC % Differential Comment Platelet Estimate Anisocytosis PT INR Sodium Potassium Chloride Carbon Dioxide Anion Gap BUN Creatinine Estim Creat Clear Calc Est GFR (MDRD) Af Amer Est GFR (MDRD) Non-Af BUN/Creatinine Ratio Glucose Calcium Troponin I High Sens Urine Color Yellow Urine Clarity Clear Urine pH 6.0 Ur Specific [place] 1.015 Urine Protein 30 H Urine Glucose (UA) Normal Urine Ketones 15 H Urine Occult Blood 25 H Urine Nitrite Negative Urine Bilirubin Negative Urine Urobilinogen Normal Ur Leukocyte Esterase Negative Urine RBC 0-5 SEEN Urine WBC 0 SEEN Ur Squamous Epith Cells 0-5 SEEN Urine Bacteria 0 SEEN Urine Mucus 0 SEEN Radiography Chest X-Ray - ED: 1 View, Read by ED Physician, Read by Radiologist and No Acute Disease Rhythm Strip Rhythm Strip: Sinus Rhythm Rate: 92 Ectopy: PVC(s) EKG Initial EKG: Attestation: I personally reviewed and interpreted this EKG as follows: Comments: Normal sinus rhythm rate of 92 Normal axis Prolonged QTC at 502 Normal MN and QRS intervals PVC present Normal ST segments Discharge Plan Triage Chief Complaint: Dizziness Other Complaint: Chest Pain ED Provider: Yoon Duarte Dx/Rx/DC Orders Clinical Impression: Peripheral vertigo, Subtherapeutic international normalized ratio (INR), Atypical chest pain Prescriptions: No Action finasteride 5 mg tablet 5 mg PO DAILY RF: 0 warfarin 4 mg tablet 4 mg PO DAILY RF: 0 isosorbide mononitrate 30 mg tablet extended release 24 hr 30 mg PO DAILY RF: 0 pyridoxine (vitamin B6) 50 mg tablet 50 mg PO DAILY RF: 0 metoprolol tartrate 25 mg tablet 12.5 mg PO BID RF: 0 hydralazine 25 mg tablet 25 mg PO TID RF: 0 meclizine 12.5 mg tablet 12.5 mg PO DAILY RF: 0 lisinopril 10 MG tablet 20 mg PO DAILY RF: 0 vitamin B complex 1 EACH capsule 1 cap PO BID RF: 0 denosumab 60 MG/ML syringe 60 mg SQ .[id number] RF: 0 pantoprazole [Protonix] 40 mg tablet,delayed release (DR/EC) 40 mg PO DAILY Qty: 90 RF: 0 Niferex (Sumalate-Quatrefolic) 150 mg iron- 60 mg-1 mg tablet 1 tab PO DAILY Qty: 90 RF: 0 senna 8.6 mg capsule 8.6 mg PO DAILY Qty: 30 RF: 0 calcium citrate 200 mg (950 mg) tablet 200 mg PO BID RF: 0 cholecalciferol (vitamin D3) 25 mcg (1,000 unit) tablet 25 mcg PO DAILY RF: 0 diltiazem HCl [Cartia XT] 180 mg Capsule,Extended Release 24hr 180 mg PO DAILY RF: 0 warfarin 2 mg Tablet 2 mg PO FR RF: 0 ipratropium bromide 21 mcg (0.03 %) [place],Non-Aerosol 2 spray INTRANASAL PRN PRN (Reason: SOB) RF: 0 amiodarone 200 mg tablet 200 mg PO DAILY RF: 0 nitroglycerin 0.4 mg tablet, sublingual 0.4 mg SL Q5-15M PRN (Reason: chest pain) Qty: 25 RF: 3 pravastatin 40 mg tablet 40 mg PO QHS Qty: 90 RF: 3 Hold Instructions: elevated Liver function 04/24/21 Primary Care Provider: César Chinchilla Referrals: César Chinchilla MD [Primary Care Provider] - Disposition Disposition: Acute Care [facility]
[2021-05-06 16:23] LABS: Absolute Lymphocyte Count 0.58 X10^3/uL (0.83-4.51); Absolute Neutrophil Count 9.2 X10^3/uL (2.0-7.7); Basophil# 0.05 X10^3/uL; Basophil% 0.5 % (0-1); Eosinophil# 0.01 X10^3/uL; Eosinophils% 0.1 % (0-5); Hemoglobin 13.3 g/dL (13.0-16.5); Lymphocyte # 0.58 X10^3/ul (0.83-4.51); Lymphocyte % 5.5 % (19-41); Mean Corp Hgb Conc 34.1 g/dL (32-36); Mean Corpuscular Hgb 33.6 pg (27.0-32.0); Mean Corpuscular Volume 98.5 fL (80-94); Mean Platelet Vol. 10.5 fl (6.2-12.0); Monocyte# 0.68 X10^3/uL; Monocyte% 6.4 % (0-10); NRBC Flagged by Analyzer 0 % (0-5); Neutrophil % 87.1 % (47-70); POSITIVE DIFFERENTIAL YES; POSITIVE MORPHOLOGY YES; Platelet Count 286 K/mm3 (150-450); RBC Distribution Width CV 19.5 % (11.6-14.6); RBC Distribution Width SD 71.4 fl (35.1-43.9); Red Blood Count 3.96 M/mm3 (4.6-6.2); White Blood Count 10.6 K/mm3 (4.4-11.0)
[2021-05-06 16:28] LABS: Anion Gap 4 (5-15); BUN 37 mg/dL (7-18); BUN/Creat Ratio 19.4 RATIO (10-20); Calcium,Total 8.9 mg/dL (8.5-10.1); Chloride 108 mmol/L (98-107); Creatinine, Serum 1.91 mg/dL (0.70-1.30); EST Glomerular Filtration Rate 36 mL/min (>60); Est Glom Filt Rate - Afr Amer 44 mL/min (>60); Estimated Creatinine Clearance 30.34 ml/min; Glucose 104 mg/dL (74-106); Sodium Level 138 mmol/L (136-145); Troponin-I HS 12 pg/mL (3.0-78.0)
[2021-05-06] MEDS: Meclizine HCl 25 MG Tablet PO ×2 (16:30→23:01)
[2021-05-06 16:36] LABS: Differential Indicated SCAN CRITERIA MET
[2021-05-06 16:39] LABS: International Normalized Ratio 1.8; Prothrombin Time (Protime)PT. 19.7 SECONDS (11.7-14.9)
[2021-05-06 17:34] LABS: Anisocytosis 2+; Differential Comment SCANNED; Platelet Estimate ADEQUATE (ADEQ)
--- NOTE | 2021-05-06 18:50 | ED.RN ---
THIS NURSE CALLED RADIOLOGY ON STATUS OF XRAY. RICHARD STATES SHE WILL CALL RADIOLOGIST
--- NOTE | 2021-05-06 19:22 | ED.RN ---
THIS RN CALLED A SECOND TIME FOR UPDATE ON XRAY..
[2021-05-06] MEDS: diazePAM 5 MG Tablet PO (19:46)
[2021-05-06 20:50] LABS: Bacteria 0 SEEN /hpf (None Seen); Mucous, Urine 0 SEEN /hpf (<or=2+); White Blood Cells 0 SEEN /hpf (0-5)
[2021-05-06 20:57] LABS: Color, Urine Yellow (Yellow); Glucose, Dipstick Normal (Normal); Ketone-Dipstick 15 mg/dl (Negative); Leukocyte Esterase-Dipstick Negative /ul (Negative); Nitrite-Dipstick Negative (Negative); Occult Blood-Urine 25 /ul (Negative); Protein-Dipstick 30 mg/dl (Negative); Specific Gravity, Urine 1.015 (1.002-1.030); Urine Bilirubin Dipstick Negative (Negative); Urine Clarity Clear (Clear); Urine Urobilinogen Normal (Normal)
[2021-05-06 21:03] LABS: Red Blood Cells-Urine 0-5 SEEN /hpf (0-5); Squamous Epithelial Cells - UA 0-5 SEEN /hpf (0-5)
--- NOTE | 2021-05-06 21:59 | NURSING ---
PCU OBS [place] INTRACTABLE VERTIGO
--- NOTE | 2021-05-06 22:00 | HP.PCM_ITS ---
Documented by User: ETHEL Valencia 05/06/21 22:23 HPI - General General Date of Admission: 05/06/21 Date of Service: 05/06/21 Chief Complaint: Vertigo HPI Narrative RICHIE HANSEN, is a 80 M who presents with chest pain and dizziness. Patient states that he has had intermittent chest pain x2 weeks. Patient states, however over the past few days he has had increasing dizziness. Patient states he has a history of vertigo and this feels similar. Patient reports associated nausea and dry heaves with vertigo symptoms. Patient denies fever, chills, shortness of breath, cough, diarrhea, constipation. [facility] Medical History Atherosclerotic heart disease of [place] coronary artery without angina pectoris Atrial fibrillation Atrial flutter BPH (benign prostatic hyperplasia) Cancer Chronic kidney disease Coronary artery disease CPAP (continuous positive airway pressure) dependence Essential (primary) hypertension GERD (gastroesophageal reflux disease) GI bleed (2012) History of electrophysiologic study (08/08/00) History of hyperthyroidism HLD (hyperlipidemia) Hypertension Kidney disease Kidney stones Myocardial infarct Non-rheumatic tricuspid valve insufficiency Non-smoker Old myocardial infarction Osteoarthritis Paroxysmal atrial fibrillation Secondary pulmonary arterial hypertension Home Medications finasteride 5 mg tablet 5 mg PO DAILY tab 06/03/20 [History Last Taken 01/20/21] warfarin 4 mg tablet 4 mg PO DAILY tab 06/03/20 [History Last Taken 01/19/21] metoprolol tartrate 25 mg tablet 50 mg PO BID tab 10/27/20 [History Last Taken 01/20/21] denosumab 60 mg SQ .[id number] 12/09/20 [History Last Taken 12/05/20] lisinopril 20 mg PO DAILY 12/09/20 [History Last Taken 01/20/21] calcium citrate 600 mg PO DAILY 01/20/21 [History Last Taken 01/20/21] amiodarone 200 mg PO DAILY 05/06/21 [History Last Taken Unknown] aspirin [Aspir-81] 81 mg PO DAILY 05/06/21 [History Last Taken Unknown] diltiazem HCl [Cartia XT] 180 mg PO DAILY 05/06/21 [History Last Taken Unknown] [id number] [Osteo Bi-Flex Triple Strength] 2 tab PO DAILY 05/06/21 [History Last Taken Unknown] ipratropium bromide 2 spray INTRANASAL PRN PRN 05/06/21 [History Last Taken Unknown] nitroglycerin 0.4 mg SL DAILY 05/06/21 [History Last Taken Unknown] nitroglycerin [Nitro] 1 patch TRANSDERMAL DAILY 05/06/21 [History Last Taken Unknown] warfarin 2 mg PO FR 05/06/21 [History Last Taken Unknown] Allergy/AdvReac Type Severity Reaction Status Date / Time diclofenac Allergy rash Verified 05/06/21 14:00 prednisone Allergy Rash Verified 05/06/21 14:00 Family History Father Cancer Prostate cancer Mother Hypertension Sister Hypertension Surgical History History of back surgery History of cardioversion (06/18/19) History of coronary artery stent placement (08/04/00) History of hemorrhoidectomy History of hernia repair History of left heart catheterization (07/17/12) History of Zenaida fundoplication History of radiofrequency ablation procedure for cardiac arrhythmia (11/11/11) Social History Smoking Status: Never smoker alcohol intake: never substance use type: does not use caffeine: No ROS Constitutional Constitutional: Denies anorexia, chills, fatigue, fever(s), malaise or weakness Eyes Eyes: Reports nystagmus Cardiovascular Cardiovascular: Denies chest pain, edema or palpitations Respiratory/Chest Respiratory/Chest: Denies cough, shortness of breath at rest or shortness of breath with exertion Gastrointestinal Gastrointestinal: Denies abdominal pain, constipation, diarrhea, nausea or vomiting Genitourinary Genitourinary: Denies dysuria Musculoskeletal Musculoskeletal: Denies back pain, extremity pain, joint pain, joint stiffness or joint swelling Integumentary Integumentary: Denies dry skin Neurologic Neurologic: Reports dizziness and vertigo; Denies abnormal gait or abnormal speech Psychiatric Psychiatric: Denies anxiety or depression Endocrine Endocrinology: Denies change in body appearance Hematologic/Lymphatic Hematologic/Lymphatic: Denies anemia, easy bleeding or easy bruising Vital Signs Vital Signs Vital Signs: 05/06/21 13:56 05/06/21 16:04 05/06/21 17:00 Temperature 98.1 F Temperature Source Temporal Pulse Rate 92 90 82 Respiratory Rate 15 20 H 16 Respiratory Effort Normal Non-Labored Blood Pressure 145/95 H 140/97 H Blood Pressure Mean 111 111 Pulse Ox 98 98 97 Oxygen Delivery Method Room Air Room Air Room Air 05/06/21 18:16 05/06/21 19:00 05/06/21 20:00 Temperature Temperature Source Pulse Rate 89 89 89 Respiratory Rate 13 18 19 H Respiratory Effort Blood Pressure 161/102 H 153/96 H 162/97 H Blood Pressure Mean 121 115 118 Pulse Ox 97 97 95 Oxygen Delivery Method Room Air Room Air Room Air 05/06/21 21:00 05/06/21 21:36 Temperature 98.7 F Temperature Source Temporal Pulse Rate 71 91 Respiratory Rate 18 18 Respiratory Effort Blood Pressure 140/94 H 140/94 H Blood Pressure Mean 109 109 Pulse Ox 96 96 Oxygen Delivery Method Room Air Room Air Weight Weight: 156 lb Body Mass Index (BMI) 23.7 Physical Exam Const alert, oriented x3 and no apparent distress General Appearance: cooperative HEENT normocephalic and head/scalp atraumatic Eyes conjunctivae normal and no scleral icterus EOM: nystagmus horizontal and with right lateral gaze Neck supple and no JVD General: trachea midline Resp normal respiratory effort, normal air movement and clear to auscultation bilaterally Cardio regular rate, regular rhythm, S1 normal heart sound, S2 normal heart sound and peripheral pulses 2+ throughout GI normal to inspection, nondistended, normoactive bowel sounds, soft to palpation and non-tender Extremity normal capillary refill and no clubbing, cyanosis or edema General Extremity: no tenderness to palpation of joints or extremities Skin General Skin Exam: no breakdown and turgor normal Lesions: no lesions Rashes: no rashes Neuro no focal motor deficits and no sensory deficits noted Speech: speech normal Motor Exam: Negative for general weakness Psych thought process normal, cooperative and affect normal Appearance: appropriate Results Lab / Micro Data Result Diagrams: 05/06/21 16:02 05/06/21 16:02 Labs: Laboratory Results - last 24 hr 05/06/21 16:02: WBC 10.6, RBC 3.96 L, Hgb 13.3, Hct 39.0 L, MCV 98.5 H, MCH 33.6 H, MCHC 34.1, RDW Std Deviation 71.4 H, RDW Coeff of Pablo 19.5 H, Plt Count 286, MPV 10.5, Immature Gran % (Auto) 0.400, Neut % (Auto) 87.1 H, Lymph % (Auto) 5.5 L, [place] % (Auto) 6.4, Eos % (Auto) 0.1, Baso % (Auto) 0.5, Absolute Neuts (auto) 9.2 H, Absolute Lymphs (auto) 0.58 L, Nucleated RBC % 0, Differential Comment SCANNED, Platelet Estimate ADEQUATE, Anisocytosis 2+ 05/06/21 16:02: Sodium 138, Potassium 4.0, Chloride 108 H, Carbon Dioxide 26.0, Anion Gap 4 L, BUN 37 H, Creatinine 1.91 H, Estim Creat Clear Calc 30.34, Est GFR (MDRD) Af Amer 44 L, Est GFR (MDRD) Non-Af 36 L, BUN/Creatinine Ratio 19.4, Glucose 104, Calcium 8.9, Troponin I High Sens 12 05/06/21 16:02: PT 19.7 H, INR 1.8 05/06/21 20:35: Urine Color Yellow, Urine Clarity Clear, Urine pH 6.0, Ur Speci fic [place] 1.015, Urine Protein 30 H, Urine Glucose (UA) Normal, Urine Ketones 15 H, Urine Occult Blood 25 H, Urine Nitrite Negative, Urine Bilirubin Negative, Urine Urobilinogen Normal, Ur Leukocyte Esterase Negative, Urine RBC 0-5 SEEN, Urine WBC 0 SEEN, Ur Squamous Epith Cells 0-5 SEEN, Urine Bacteria 0 SEEN, Urine Mucus 0 SEEN Rhythm Strip Rhythm Strip: Sinus Rhythm Rate: 92 Ectopy: PVC(s) Assessment & Plan Assessment/Plan (1) Atypical chest pain: (2) BPPV (benign paroxysmal positional vertigo): QUALIFIERS: Laterality: right Qualified Code(s): H81.11 - Benign paroxysmal vertigo, right ear PLAN: 1.BPPV -Admit to PCU for cardiac monitoring -Cardiac diet -CBC and BMP daily -Vital signs per protocol, currently stable -Meclizine ordered -[place]-Hallpike maneuver positive 2. Atypical chest pain -EKG shows normal sinus rhythm, heart rate 92 -Troponin negative -Cardiac monitoring ordered 3. Atrial fibrillation -Patient noted to have subtherapeutic INR -Will continue warfarin, recheck PT/INR Will continue patient's home medication regimen for chronic conditions including hypertension, BPH, CHF. DVT prophylaxis-SCDs This patient was seen by ETHEL Valencia under the supervision of Dr. Eagle. Documented by User: Dr. Mehrdad Eagle MD 05/07/21 00:28 HPI - General General Date of Admission: 05/06/21 [facility] Medical History Atherosclerotic heart disease of [place] coronary artery without angina pectoris Atrial fibrillation Atrial flutter BPH (benign prostatic hyperplasia) Cancer Chronic kidney disease Coronary artery disease CPAP (continuous positive airway pressure) dependence Essential (primary) hypertension GERD (gastroesophageal reflux disease) GI bleed (2012) History of electrophysiologic study (08/08/00) History of hyperthyroidism HLD (hyperlipidemia) Hypertension Kidney disease Kidney stones Myocardial infarct Non-rheumatic tricuspid valve insufficiency Non-smoker Old myocardial infarction Osteoarthritis Paroxysmal atrial fibrillation Secondary pulmonary arterial hypertension Home Medications finasteride 5 mg tablet 5 mg PO DAILY tab 06/03/20 [History Last Taken 01/20/21] warfarin 4 mg tablet 4 mg PO DAILY tab 06/03/20 [History Last Taken 01/19/21] metoprolol tartrate 25 mg tablet 50 mg PO BID tab 10/27/20 [History Last Taken 01/20/21] denosumab 60 mg SQ .[id number] 12/09/20 [History Last Taken 12/05/20] lisinopril 20 mg PO DAILY 12/09/20 [History Last Taken 01/20/21] calcium citrate 600 mg PO DAILY 01/20/21 [History Last Taken 01/20/21] amiodarone 200 mg PO DAILY 05/06/21 [History Last Taken Unknown] aspirin [Aspir-81] 81 mg PO DAILY 05/06/21 [History Last Taken Unknown] diltiazem HCl [Cartia XT] 180 mg PO DAILY 05/06/21 [History Last Taken Unknown] [id number] [Osteo Bi-Flex Triple Strength] 2 tab PO DAILY 05/06/21 [History Last Taken Unknown] ipratropium bromide 2 spray INTRANASAL PRN PRN 05/06/21 [History Last Taken Unk nown] nitroglycerin 0.4 mg SL DAILY 05/06/21 [History Last Taken Unknown] nitroglycerin [Nitro] 1 patch TRANSDERMAL DAILY 05/06/21 [History Last Taken Unknown] warfarin 2 mg PO FR 05/06/21 [History Last Taken Unknown] Allergy/AdvReac Type Severity Reaction Status Date / Time diclofenac Allergy rash Verified 05/06/21 14:00 prednisone Allergy Rash Verified 05/06/21 14:00 Family History Father Cancer Prostate cancer Mother Hypertension Sister Hypertension Surgical History History of back surgery History of cardioversion (06/18/19) History of coronary artery stent placement (08/04/00) History of hemorrhoidectomy History of hernia repair History of left heart catheterization (07/17/12) History of Zenaida fundoplication History of radiofrequency ablation procedure for cardiac arrhythmia (11/11/11) Social History Smoking Status: Never smoker alcohol intake: never substance use type: does not use caffeine: No Results Lab / Micro Data Result Diagrams: 05/06/21 16:02 05/06/21 16:02 Charges/Coding Addendum Addendum: Dr. Eagle: I personally reviewed the chart and examined the patient, and agree with the above findings. 80-year-old male who presented to the hospital with persistent vertigo and chest pain. Chest pain was unremarkable with normal troponins and an EKG that was nonischemic. He has noticed that he has been having increased dizziness over the last several days, and this is consistent with his previous episodes of vertigo. He did run out of of meclizine which had been prescribed to him for his previous vertigo episodes. At this time he is feeling much better, he still states that he has some dizziness but is not nearly as bad as it was prior to his admission. We will continue with IV fluids and meclizine as needed. As from a chest pain standpoint, we will continue to monitor him and if he remains chest pain-free while here can likely have him follow-up with his PCP and sand caster as an outpatient. Visit Charges OBSV E&M: [id number] Initial observation care L3
[2021-05-06] MEDS: Ondansetron 4 MG/2 ML Vial IV (23:01)
[2021-05-06] MEDS: 0.9% Saline Lock 10 ML Syringe IV (23:01)
[2021-05-06] MEDS: 0.9% Normal Saline 1,000 ML 75 ML IV (23:02)
[2021-05-07] VITALS (7 sets, daily range): BP systolic 132–151; BP diastolic 68–96; PULSE 80–90; RESP 16; TEMP 36.6–36.8; O2SAT 94–96
[2021-05-07 07:49] LABS: Absolute Lymphocyte Count 1.07 X10^3/uL (0.83-4.51); Absolute Neutrophil Count 6.6 X10^3/uL (2.0-7.7); Basophil# 0.05 X10^3/uL; Basophil% 0.6 % (0-1); Eosinophil# 0.13 X10^3/uL; Eosinophils% 1.5 % (0-5); Hematocrit 37.4 % (40-54); Hemoglobin 12.6 g/dL (13.0-16.5); Lymphocyte # 1.07 X10^3/ul (0.83-4.51); Lymphocyte % 12.3 % (19-41); Mean Corp Hgb Conc 33.7 g/dL (32-36); Mean Corpuscular Hgb 33.9 pg (27.0-32.0); Mean Corpuscular Volume 100.5 fL (80-94); Mean Platelet Vol. 10.2 fl (6.2-12.0); Monocyte% 9.2 % (0-10); NRBC Flagged by Analyzer 0 % (0-5); Neutrophil # 6.59 X10^3/uL (2.7-7.7); Neutrophil % 76.1 % (47-70); POSITIVE MORPHOLOGY YES; Platelet Count 243 K/mm3 (150-450); RBC Distribution Width CV 19.5 % (11.6-14.6); RBC Distribution Width SD 73.4 fl (35.1-43.9); Red Blood Count 3.72 M/mm3 (4.6-6.2); White Blood Count 8.7 K/mm3 (4.4-11.0)
[2021-05-07 07:58] LABS: Differential Indicated SCAN CRITERIA MET
[2021-05-07 08:00] LABS: International Normalized Ratio 1.7; Prothrombin Time (Protime)PT. 19.7 SECONDS (11.7-14.9)
[2021-05-07 08:26] LABS: Anion Gap 5 (5-15); BUN 31 mg/dL (7-18); BUN/Creat Ratio 17.5 RATIO (10-20); Calcium,Total 8.5 mg/dL (8.5-10.1); Chloride 110 mmol/L (98-107); Creatinine, Serum 1.77 mg/dL (0.70-1.30); EST Glomerular Filtration Rate 40 mL/min (>60); Est Glom Filt Rate - Afr Amer 48 mL/min (>60); Estimated Creatinine Clearance 32.74 ml/min; Glucose 82 mg/dL (74-106); Potassium 3.7 mmol/L (3.5-5.1); Sodium Level 141 mmol/L (136-145)
[2021-05-07 08:36] LABS: Anisocytosis 1+
[2021-05-07] MEDS: dilTIAZem CD 180 MG Capsule PO (10:27)
[2021-05-07] MEDS: Finasteride 5 MG Tablet PO (10:27)
[2021-05-07] MEDS: Lisinopril 20 MG Tablet PO (10:27)
[2021-05-07] MEDS: Aspirin E.C. 81 MG Tablet PO (10:27)
[2021-05-07] MEDS: Amiodarone 200 MG Tablet PO (10:27)
[2021-05-07] MEDS: Calcium Carbonate 500 MG Tablet 1500 MG PO (10:27)
[2021-05-07] MEDS: Metoprolol Tartrate 50 MG Tablet PO (10:27)
--- NOTE | 2021-05-07 11:47 | DCINST_ITS ---
Discharge Instructions Diet Discharge Diet: Low fat / Low cholesterol Activity Discharge Activity: Return to Normal Activity Dressing / Incision Call your doctor if you observe: Shortness of breath, Dizziness and Chest pain Follow Up Care Test Results: Test results from this visit will be discussed in further detail at your follow-up appointment, if applicable. Discharge Plan Admission Admit Date/Time: 05/06/21 21:26 Primary Reason for Your Visit: Vertigo Attending Provider: Drew Morton Primary Care Provider: César Chinchilla Instructions Additional Instructions / Restrictions: Patient Problems: Altered Health Status related to Hospitalization Patient Goals: *Optimal Level of Health *Keep Appointments *Medication Compliance *Remain Safe Discharge Orders/Prescriptions Prescriptions: New meclizine 25 mg Tablet 25 mg PO TID PRN PRN (Reason: Dizziness) Qty: 30 RF: 0 Continued finasteride 5 mg tablet 5 mg PO DAILY RF: 0 warfarin 4 mg tablet 4 mg PO DAILY RF: 0 metoprolol tartrate 25 mg tablet 50 mg PO BID RF: 0 lisinopril 10 MG tablet 20 mg PO DAILY RF: 0 denosumab 60 MG/ML syringe 60 mg SQ .[id number] RF: 0 calcium citrate 200 mg (950 mg) tablet 600 mg PO DAILY RF: 0 diltiazem HCl [Cartia XT] 180 mg Capsule,Extended Release 24hr 180 mg PO DAILY RF: 0 warfarin 2 mg Tablet 2 mg PO FR RF: 0 ipratropium bromide 21 mcg (0.03 %) [place],Non-Aerosol 2 spray INTRANASAL PRN PRN (Reason: SOB) RF: 0 amiodarone 200 mg tablet 200 mg PO DAILY RF: 0 nitroglycerin 0.2 mg/hr Patch 24 Hour 1 patch TRANSDERMAL DAILY RF: 0 aspirin 81 mg Tablet,Delayed Release (Dr/Ec) 81 mg PO DAILY RF: 0 Osteo Bi-Flex Triple Strength 750 mg-644 mg- 30 mg-1 mg Tablet 2 tab PO DAILY RF: 0 nitroglycerin 0.4 mg tablet, sublingual 0.4 mg SL DAILY RF: 0 Referrals / Follow Up: E[place], [place] [Other] - See Referral Note (Call for follow-up within 1 week) Tremaine Molina MD [STAFF PHYSICIAN] - See Referral Note (As scheduled 08/13/2020) César Chinchilla MD [Primary Care Provider] - In 1 Week Disposition Disposition (needs filled in before D/C Order can be placed): Home, Self Care
--- NOTE | 2021-05-07 12:08 | DS.PCM_ITS ---
Documented by User: Yamilka Aguayo NP, [employer] 05/07/21 12:24 Providers Date of Admission: 05/06/21 Date of Discharge: 05/07/21 Primary Care Physician: Dr. César Chinchilla MD Reason For Visit: VERTIGO Diagnosis Discharge Diagnosis (1) Atypical chest pain: Status: Acute Code(s): R07.89 - Other chest pain (2) BPPV (benign paroxysmal positional vertigo): Status: Acute Code(s): H81.10 - Benign paroxysmal vertigo, unspecified ear Qualifiers: Laterality: right Qualified Code(s): H81.11 - Benign paroxysmal vertigo, right ear Medications at Discharge Home Medications finasteride 5 mg tablet 5 mg PO DAILY tab 06/03/20 warfarin 4 mg tablet 4 mg PO DAILY tab 06/03/20 metoprolol tartrate 25 mg tablet 50 mg PO BID tab 10/27/20 denosumab 60 mg SQ .[id number] 12/09/20 lisinopril 20 mg PO DAILY 12/09/20 calcium citrate 600 mg PO DAILY 01/20/21 Osteo Bi-Flex Triple Strength 2 tab PO DAILY 05/06/21 amiodarone 200 mg PO DAILY 05/06/21 aspirin 81 mg PO DAILY 05/06/21 diltiazem HCl [Cartia XT] 180 mg PO DAILY 05/06/21 ipratropium bromide 2 spray INTRANASAL PRN PRN 05/06/21 nitroglycerin 0.4 mg SL DAILY 05/06/21 nitroglycerin 1 patch TRANSDERMAL DAILY 05/06/21 warfarin 2 mg PO FR 05/06/21 meclizine 25 mg PO TID PRN PRN #30 tab 05/07/21 Hospital Course Operations None Procedures None Summary of Care Provided Minutes Spent on Discharge: 35 Hospital Course: Patient is a 80-year-old male admitted 05/06/2021 due to vertigo. 1. Acute BPPV-patient reports a history of vertigo. Denies other neurologic symptoms or focal deficits. Hobbs-Hallpike maneuver positive. Patient states he ran out of his meclizine he previously used as needed. PT/OT eval during admission. Patient is established with ENT. Follow-up in 1 week. As needed meclizine at discharge. Outpatient PT for vestibular therapy if patient is amendable. Patient had previous MRI of brain November 2020 which showed advanced periventricular white matter ischemic changes without evidence of acute infarct. Follow-up with PCP in 1 week. 2. Transient atypical chest pain-resolved. EKG without ST-T changes. Troponin negative. Denies further chest pain. 3. CAD with history of stent to LAD-stress test 11/05/2020 - for ischemia. Echo December 2020 with EF 60%. Continue outpatient follow-up with cardiology. Continue aspirin, metoprolol. 4. Paroxysmal atrial fibrillation-history of pulmonary vein isolation in 2011 and DCCV 2018. INR subtherapeutic, 1.7. Continue outpatient follow-up for Coumadin management. On Cardizem, amiodarone, metoprolol. 5. Hypertension-blood pressure intermittently elevated, 140-160 systolically during admission. Patient reports his blood pressure is not typically elevated. Recommend home blood pressure monitoring twice daily and follow-up with PCP/cardiology for further medication adjustments as necessary if blood pressure remains above goal. 6. Hyperlipidemia-not on statin. 7. History of third-degree heart block-medications previously adjusted. Continue follow-up with cardiology. 8. BPH-on finasteride. 9. History of GI bleed-stable. 10. Chronic kidney disease stage IIIb-at baseline. Patient seen and examined prior to discharge. Physical assessment as noted below. Patient is stable for discharge with follow up recommendations as noted above. This patient was seen by ETHEL Grullon under the supervision of Dr. Morton. Physical Exam Const alert, oriented x3 and no apparent distress Orientation / Consciousness: awake, oriented to person, oriented to place and oriented to time HEENT normocephalic and moist oral mucous membranes Eyes PERRL, EOMs intact bilaterally and conjunctivae normal Neck no lymphadenopathy Resp normal respiratory effort and clear to auscultation bilaterally Cardio regular rate, regular rhythm and no murmurs Peripheral Pulses: pulses 2+ throughout GI normal to inspection, nondistended, normoactive bowel sounds, non-tender and non-distended Extremity normal to inspection Skin no rashes or lesions noted Lesions: no lesions Rashes: no rashes Trauma: no lacerations or abrasions Neuro CN's II-XII intact bilaterally, no focal motor deficits, no sensory deficits noted and deep tendon reflexes 2+ bilaterally Psych mental status grossly normal and affect normal Weight / BMI Weight Weight: 153 lb 7.068 oz Body Mass Index (BMI) 23.3 ABG / Lab / Microbiology Data Result Diagrams: 05/07/21 06:50 05/07/21 06:50 Laboratory: Laboratory Results - last 24 hr 05/06/21 16:02: WBC 10.6, RBC 3.96 L, Hgb 13.3, Hct 39.0 L, MCV 98.5 H, MCH 33.6 H, MCHC 34.1, RDW Std Deviation 71.4 H, RDW Coeff of Pablo 19.5 H, Plt Count 286, MPV 10.5, Immature Gran % (Auto) 0.400, Neut % (Auto) 87.1 H, Lymph % (Auto) 5.5 L, [place] % (Auto) 6.4, Eos % (Auto) 0.1, Baso % (Auto) 0.5, Absolute Neuts (auto) 9.2 H, Absolute Lymphs (auto) 0.58 L, Nucleated RBC % 0, Differential Comment SCANNED, Platelet Estimate ADEQUATE, Anisocytosis 2+ 05/06/21 16:02: Sodium 138, Potassium 4.0, Chloride 108 H, Carbon Dioxide 26.0, Anion Gap 4 L, BUN 37 H, Creatinine 1.91 H, Estim Creat Clear Calc 30.34, Est GFR (MDRD) Af Amer 44 L, Est GFR (MDRD) Non-Af 36 L, BUN/Creatinine Ratio 19.4, Glucose 104, Calcium 8.9, Troponin I High Sens 12 05/06/21 16:02: PT 19.7 H, INR 1.8 05/06/21 20:35: Urine Color Yellow, Urine Clarity Clear, Urine pH 6.0, Ur Specific [place] 1.015, Urine Protein 30 H, Urine Glucose (UA) Normal, Urine Ketones 15 H, Urine Occult Blood 25 H, Urine Nitrite Negative, Urine Bilirubin Negative, Urine Urobilinogen Normal, Ur Leukocyte Esterase Negative, Urine RBC 0-5 SEEN, Urine WBC 0 SEEN, Ur Squamous Epith Cells 0-5 SEEN, Urine Bacteria 0 SEEN, Urine Mucus 0 SEEN 05/07/21 06:50: WBC 8.7, RBC 3.72 L, Hgb 12.6 L, Hct 37.4 L, MCV 100.5 H, MCH 33.9 H, MCHC 33.7, RDW Std Deviation 73.4 H, RDW Coeff of [place] 19.5 H, Plt Count 243, MPV 10.2, Immature Gran % (Auto) 0.300, Neut % (Auto) 76.1 H, Lymph % (Auto) 12.3 L, [place] % (Auto) 9.2, Eos % (Auto) 1.5, Baso % (Auto) 0.6, Absolute Neuts (auto) 6.6, Absolute Lymphs (auto) 1.07, Nucleated RBC % 0, Anisocytosis 1+ 05/07/21 06:50: Sodium 141, Potassium 3.7, Chloride 110 H, Carbon Dioxide 26.0, Anion Gap 5, BUN 31 H, Creatinine 1.77 H, Estim Creat Clear Calc 32.74, Est GFR (MDRD) Af Amer 48 L, Est GFR (MDRD) Non-Af 40 L, BUN/Creatinine Ratio 17.5, Glucose 82, Calcium 8.5 05/07/21 06:50: PT 19.7 H, INR 1.7 D/C Instructions Discharge Diet: Low fat / Low cholesterol Call your doctor if you observe: Shortness of breath, Dizziness and Chest pain Meaningful Use Info Meaningful Use Diagnoses (Choose all that apply): None applicable Discharge Plan Admission Admit Date/Time: 05/06/21 21:26 Primary Reason for Your Visit: Vertigo Attending Provider: Drew Morton Primary Care Provider: César Chinchilla Instructions Additional Instructions / Restrictions: Patient Problems: Altered Health Status related to Hospitalization Patient Goals: *Optimal Level of Health *Keep Appointments *Medication Compliance *Remain Safe Discharge Orders/Prescriptions Prescriptions: New meclizine 25 mg Tablet 25 mg PO TID PRN PRN (Reason: Dizziness) Qty: 30 RF: 0 Continued finasteride 5 mg tablet 5 mg PO DAILY RF: 0 warfarin 4 mg tablet 4 mg PO DAILY RF: 0 metoprolol tartrate 25 mg tablet 50 mg PO BID RF: 0 lisinopril 10 MG tablet 20 mg PO DAILY RF: 0 denosumab 60 MG/ML syringe 60 mg SQ .[id number] RF: 0 calcium citrate 200 mg (950 mg) tablet 600 mg PO DAILY RF: 0 diltiazem HCl [Cartia XT] 180 mg Capsule,Extended Release 24hr 180 mg PO DAILY RF: 0 warfarin 2 mg Tablet 2 mg PO FR RF: 0 ipratropium bromide 21 mcg (0.03 %) [place],Non-Aerosol 2 spray INTRANASAL PRN PRN (Reason: SOB) RF: 0 amiodarone 200 mg tablet 200 mg PO DAILY RF: 0 nitroglycerin 0.2 mg/hr Patch 24 Hour 1 patch TRANSDERMAL DAILY RF: 0 aspirin 81 mg Tablet,Delayed Release (Dr/Ec) 81 mg PO DAILY RF: 0 Osteo Bi-Flex Triple Strength 750 mg-644 mg- 30 mg-1 mg Tablet 2 tab PO DAILY RF: 0 nitroglycerin 0.4 mg tablet, sublingual 0.4 mg SL DAILY RF: 0 Referrals / Follow Up: ENT, Nichelle [Other] - See Referral Note (Call for follow-up within 1 week) Tremaine Molina MD [STAFF PHYSICIAN] - See Referral Note (As scheduled 08/13/2020) César Chinchilla MD [Primary Care Provider] - In 1 Week Disposition Disposition (needs filled in before D/C Order can be placed): Home, Self Care Documented by User: Dr. Drew Morton MD 05/07/21 17:13 Providers Date of Admission: 05/06/21 Reason For Visit: VERTIGO Medications at Discharge Home Medications finasteride 5 mg tablet 5 mg PO DAILY tab 06/03/20 warfarin 4 mg tablet 4 mg PO DAILY tab 06/03/20 metoprolol tartrate 25 mg tablet 50 mg PO BID tab 10/27/20 denosumab 60 mg SQ .[id number] 12/09/20 lisinopril 20 mg PO DAILY 12/09/20 calcium citrate 600 mg PO DAILY 01/20/21 Osteo Bi-Flex Triple Strength 2 tab PO DAILY 05/06/21 amiodarone 200 mg PO DAILY 05/06/21 aspirin 81 mg PO DAILY 05/06/21 diltiazem HCl [Cartia XT] 180 mg PO DAILY 05/06/21 ipratropium bromide 2 spray INTRANASAL PRN PRN 05/06/21 nitroglycerin 0.4 mg SL DAILY 05/06/21 nitroglycerin 1 patch TRANSDERMAL DAILY 05/06/21 warfarin 2 mg PO FR 05/06/21 meclizine 25 mg PO TID PRN PRN #30 tab 05/07/21 Hospital Course Summary of Care Provided Hospital Course: This patient was seen in conjunction with Yamilka CHATMAN. I have independently interviewed and examined the patient and reviewed pertinent history, examination findings, laboratory and plan of management. I have reviewed the note and agree with the documented findings with the few additional points. In brief, patient is admitted for vertigo and dizziness mostly due to BPV. Patient denies any other neurological deficit. Hobbs-Hallpike maneuver was positive. Patient symptoms got better with meclizine. PT and OT was done. Follow with ENT in 1 week. Patient had previous MRI in November 2020 which did not show evidence of acute Transient atypical chest pain resolved. Troponins negative. Patient's other comorbidities as mentioned above. Discharge medication reconciliation done. Discharge follow-up instructions completed. Discharge process discussed with the patient and all questions were answered to patient's satisfaction. I have discussed my assessment with Yamilka CHATMAN and orders have been reviewed. Physical Exam Narrative Seen and examined. Patient was still dizzy and vertigo in the morning. Vertigo got resolved. General: Alert, Oriented x3, Cooperative HEENT: Atraumatic, PERRLA, EOMI, Normocephalic. No nystagmus Oral: No Gingival or Mucosal Lesions/ Ulcerations Neck: Supple, No JVD, Negative Carotid Bruits Lungs: Air entry diminished in bilateral lung bases. No crepitation/rhonchi Cardiovascular: Regular rate, Regular Rhythm, Normal S1, Normal S2, No murmurs Abdomen: Bowel Sounds Present, Soft, Non Tender, Non-Distended : No renal angle tenderness. No suprapubic tenderness. Extremities: No edema, Capillary Refill Less than 3 Seconds Skin: No rashes, No breakdown Musculoskeletal: No Tenderness to Palpation of Joints or Extremities Neurological: Cranial nerves II-XII grossly intact, DTR 2+/4 and Symmetrical, Neuro grossly intact Psych/Mental Status: Normal Affect, Appropriate. ABG / Lab / Microbiology Data Result Diagrams: 05/07/21 06:50 05/07/21 06:50 Discharge Plan Admission Admit Date/Time: 05/06/21 21:26 Primary Reason for Your Visit: Vertigo Attending Provider: Drew Morton Primary Care Provider: César Chinchilla Instructions Additional Instructions / Restrictions: Patient Problems: Altered Health Status related to Hospitalization Patient Goals: *Optimal Level of Health *Keep Appointments *Medication Compliance *Remain Safe Discharge Orders/Prescriptions Prescriptions: New meclizine 25 mg Tablet 25 mg PO TID PRN PRN (Reason: Dizziness) Qty: 30 RF: 0 Continued finasteride 5 mg tablet 5 mg PO DAILY RF: 0 warfarin 4 mg tablet 4 mg PO DAILY RF: 0 metoprolol tartrate 25 mg tablet 50 mg PO BID RF: 0 lisinopril 10 MG tablet 20 mg PO DAILY RF: 0 denosumab 60 MG/ML syringe 60 mg SQ .[id number] RF: 0 calcium citrate 200 mg (950 mg) tablet 600 mg PO DAILY RF: 0 diltiazem HCl [Cartia XT] 180 mg Capsule,Extended Release 24hr 180 mg PO DAILY RF: 0 warfarin 2 mg Tablet 2 mg PO FR RF: 0 ipratropium bromide 21 mcg (0.03 %) [place],Non-Aerosol 2 spray INTRANASAL PRN PRN (Reason: SOB) RF: 0 amiodarone 200 mg tablet 200 mg PO DAILY RF: 0 nitroglycerin 0.2 mg/hr Patch 24 Hour 1 patch TRANSDERMAL DAILY RF: 0 aspirin 81 mg Tablet,Delayed Release (Dr/Ec) 81 mg PO DAILY RF: 0 Osteo Bi-Flex Triple Strength 750 mg-644 mg- 30 mg-1 mg Tablet 2 tab PO DAILY RF: 0 nitroglycerin 0.4 mg tablet, sublingual 0.4 mg SL DAILY RF: 0 Referrals / Follow Up: ENT, Nichelle [Other] - See Referral Note (Call for follow-up within 1 week) Tremaine Molina MD [STAFF PHYSICIAN] - See Referral Note (As scheduled 08/13/2020) César Chinchilla MD [Primary Care Provider] - In 1 Week Disposition Disposition (needs filled in before D/C Order can be placed): Home, Self Care Charges/Coding Visit Charges Inpatient E&M: 82134 Disch Hosp OBSV E&M: 60561 Observation care discharge
[2021-05-07] MEDS: 0.9% Normal Saline 1,000 ML 75 ML IV (12:24)
--- NOTE | 2021-05-07 12:45 | CASEMGMT ---
Per therapy, pt to be set up for OP vestibular therapy at discharge and pt is agreeable to [facility] as he has been there recently. Script faxed and original to pt. Pt voices no further questions/concerns/needs. Rosalva GARCIA CM
[2021-05-07] MEDS: Meclizine HCl 25 MG Tablet PO (12:47)
== END 2021-05-07 14:41 | disposition home or self-care (01) ==
LOC: ED 21:38 → PCU 21:40
PROVIDERS: Admitting Provider Family Medicine; Emergency Provider Emergency Medicine; PCP Family Medicine; Visit Provider Internal Medicine
DX: R07.89 Other chest pain (principal); H81.10 Benign paroxysmal vertigo, unspecified ear; I25.10 Atherosclerotic heart disease of native coronary artery without angina pectoris; I48.0 Paroxysmal atrial fibrillation; E78.5 Hyperlipidemia, unspecified; N40.0 Benign prostatic hyperplasia without lower urinary tract symptoms; N18.32 Chronic kidney disease, stage 3b; I13.0 Hypertensive heart and chronic kidney disease with heart failure and stage 1 through stage 4 chronic kidney disease, or unspecified chronic kidney disease; I44.2 Atrioventricular block, complete; K21.9 Gastro-esophageal reflux disease without esophagitis; I25.2 Old myocardial infarction; M19.90 Unspecified osteoarthritis, unspecified site; I27.21 Secondary pulmonary arterial hypertension; I50.9 Heart failure, unspecified; Z79.899 Other long term (current) drug therapy; Z95.5 Presence of coronary angioplasty implant and graft; Z79.01 Long term (current) use of anticoagulants; Z79.82 Long term (current) use of aspirin
CPT/HCPCS: 36415; 71045; 80048; 81001; 84484; 85025; 85610; 93005; 96361; 96374; 97162; 97166; 99218; 99285; J7030; A4216; G0378; J2405

== ENCOUNTER 2021-05-20 12:30 | Outpatient (RCR) | payer MEDICARE, OTHER, SELFPAY ==
--- NOTE | 2021-05-11 15:00 | HP.PTEVAL_ITS ---
Patient's Visit Information RICHIE HANSEN is a 80 year old M referred to Physical Therapy by ETHEL Grullon with a diagnosis of BPPV. Date of Evaluation: 05/11/21 Physical Therapist: BAILEY Seymour - Visit Plan Frequency: 2x /Week Duration: 6 Weeks Plan: 2X/ week for smooth pursuit and VOR exercises, neck ROM exercises, US and MT to the L side of his neck to see if helps with increase ROM and less dizziness, postural exercises with HEP. HEP: Smooth pursuit vertical and horizontal and watch posture - Subjective Pt was in ER last tuesday and stayed overnight. He was told that he had crystals in his ear that are throwing him off. He reports that he is lightly dizzy currently. Pt complains of L sided neck tightness and wondering of that is causing some of it. He was just here for general strengthening and now dis charged. He sees Dr Resendiz on Tue. He reports that he gets dizzy when her rolls over in bed at night. He reports that he gets dizzy when rolling to both sides. He reports that he does not look up and down to the floor and he does not do that because of the neck pain. He had his Cammy to get him to the car. He reports that he is getting better as he could not walk straight. He feels that there is a cloud in his head. He does not have trouble riding in a car. - Pain head pain Pain Intensity (Out of 10): 5 Comment: forehead pain - Objective -HALLPIKE to the R for nystagmus (slight dizziness when going down but a lot when coming back up)... he said he thought he might get sick when coming back up. - Hallpike to the L Feels that the position of neck extension with the hallpike caused increase dizziness. Sitting neck extension. Tight L side of neck and causes pain with all head movements. Pain with palpation along the mid trap and levator on the L side. C-spine AROM: ext to neutral pulls on the L side of mid/lower trap (increase dizziness), flexion 75% (slight dizziness), R Rotation 50% ( no pain), L rotation 25% increase neck tightness and some dizziness. Smooth pursuit in sitting horizontal ( X 15 seconds) increase dizziness and head pressure. Smooth pursuit in sitting vertical (X15 seconds) increase dizziness and decrease ability to keep track of the target and increase head pressure. VOR X 1 horizontal in sitting... slight dizziness but pt also moved his head very slow due to the pain on the L side of his neck. Posture: increased throacic kyphosis and fw head ( he reports that he has had several back surgeries). - Balance/Special Test Scores Dizziness Score: 38 - Goals Goal 1:: I HEP Goal Time Frame: 4-6 Weeks Goal 2:: Decrease dizziness by 50% with ADL's Goal Time Frame: 4-6 Weeks Goal 3:: Decrease neck pain by 50% and be able to increase neck ROM without having neck pain Goal Time Frame: 4-6 Weeks Goal 4:: Be able to complete Vertical and Horizontal smooth pursuit and VOR without having increase dizziness Goal Time Frame: 4-6 Weeks - Rehabilitation Potential Rehabilitation Potential: Good - Anticipated Interventions Patient/Client Instruction: Educate patient on: Condition, Plan of Care For the Purpose of:: To decrease pain, To increase ROM, To improve nutrient delivery to tissue, To improve muscle performance and motor function, To improve ability to perform ADL's, To increase tolerance to activity/condition/position, To improve ability of physical actions for home/community/work/leisure, To improve gait and locomotor functions, To improve health of tissue, To decrease soft tissue restriction, To increase flexibility/ROM, To improve balance, To improve safety with gait Therapeutic Exercise to Include: Strength training, Balance training, Postural training, Flexibilty training, Gait and locomotor training, Neuromotor development, Passive ROM, Active ROM, Scapular Strength/Stabilization For the Purpose of:: To decrease pain, To decrease swelling/inflammation, To increase ROM, To improve nutrient delivery to tissue, To improve muscle performance and motor function, To improve ability to perform ADL's, To decrease level of supervision to perform tasks, To improve ability of physical actions for home/community/work/leisure, To improve gait and locomotor functions, To improve health of tissue, To decrease soft tissue restriction, To increase flexibility/ROM, To improve balance, To improve safety with gait Manual Therapy Techniques to Include: Mobilization, Passive ROM, Soft tissue mobilization For the Purpose of:: To decrease pain, To increase ROM, To improve muscle performance and motor function, To improve ability to perform ADL's, To increase tolerance to activity/condition/position, To decrease soft tissue restriction, To increase flexibility/ROM Ultrasound (thermal/non thermal): Yes For the Purpose of:: To decrease pain, To decrease swelling/inflammation, To increase ROM, To improve nutrient delivery to tissue Thank you for the opportunity to evaluate your patient. For Medicare and Medicare HMO plans, please review the plan of care and approve it. It will need to be FAXED BACK to us at [phone] for Medicare purposes. For Medicare only, by signing this I certify the plan of care. Please let me know if there are questions or concerns regarding this plan of care. Physician Signature: Date:
--- NOTE | 2021-05-20 13:09 | HP.PTREVAL ---
Dr. César Chinchilla MD, It has been my pleasure to treat RICHIE HANSEN over the last 4 visits for BPPV. Please see the progress note below for an update on the physical therapy plan of care! Subjective: Pt reports that he has a little bit of neck pain still 1-2/10. Pt has about 1/10 dizziness right now. he has some sinus head pain currently Plan Plan: Hold chart X 2 weeks and then re check if pt feels that he needs further PT Balance/Gait/Functional tests - Balance/Special Test Scores Dizziness Score: 16 Goals Goal 1:: I HEP Goal Time Frame: 4-6 Weeks Goal Progress: Goal Met Goal 2:: Decrease dizziness by 50% with ADL's Goal Time Frame: 4-6 Weeks Goal Progress: Goal Met Goal 3:: Decrease neck pain by 50% and be able to increase neck ROM without having neck pain Goal Time Frame: 4-6 Weeks Goal Progress: Progressing Goal 4:: Be able to complete Vertical and Horizontal smooth pursuit and VOR without having increase dizziness Goal Time Frame: 4-6 Weeks Anticipated Interventions Patient/Client Instruction: Educate patient on: Condition, Plan of Care For the Purpose of:: To decrease pain, To increase ROM, To improve nutrient delivery to tissue, To improve muscle performance and motor function, To improve ability to perform ADL's, To increase tolerance to activity/condition/position, To improve ability of physical actions for home/community/work/leisure, To improve gait and locomotor functions, To improve health of tissue, To decrease soft tissue restriction, To increase flexibility/ROM, To improve balance, To improve safety with gait Therapeutic Exercise to Include: Strength training, Balance training, Postural training, Flexibilty training, Gait and locomotor training, Neuromotor development, Passive ROM, Active ROM, Scapular Strength/Stabilization For the Purpose of:: To decrease pain, To decrease swelling/inflammation, To increase ROM, To improve nutrient delivery to tissue, To improve muscle performance and motor function, To improve ability to perform ADL's, To decrease level of supervision to perform tasks, To improve ability of physical actions for home/community/work/leisure, To improve gait and locomotor functions, To improve health of tissue, To decrease soft tissue restriction, To increase flexibility/ROM, To improve balance, To improve safety with gait Manual Therapy Techniques to Include: Mobilization, Passive ROM, Soft tissue mobilization For the Purpose of:: To decrease pain, To increase ROM, To improve muscle performance and motor function, To improve ability to perform ADL's, To increase tolerance to activity/condition/position, To decrease soft tissue restriction, To increase flexibility/ROM Ultrasound (thermal/non thermal): Yes For the Purpose of:: To decrease pain, To decrease swelling/inflammation, To increase ROM, To improve nutrient delivery to tissue Please do not hesitate to contact me at [phone] by phone or if you have questions or concerns regarding this new plan of care! Sincerely, Vivian Hernandez, MPT
--- NOTE | 2021-08-11 12:42 | HP.PTDCSUM ---
It has been my pleasure to treat RICHIE HANSEN referred by Dr. César Chinchilla MD, with the diagnosis of BPPV for a total of 4 visit(s). Discharge Date: 08/11/21 Please see the following information for a summary of their discharge status. Subjective: Pt reports that he has a little bit of neck pain still 1-2/10. Pt has about 1/10 dizziness right now. he has some sinus head pain currently head pain Pain Intensity (Out of 10): 5 L neck Pain Intensity (Out of 10): 2 % Improvement: 75 Goal 1:: I HEP Goal Progress: Goal Met Goal 2:: Decrease dizziness by 50% with ADL's Goal Progress: Goal Met Goal 3:: Decrease neck pain by 50% and be able to increase neck ROM without having neck pain Goal Progress: Progressing Goal 4:: Be able to complete Vertical and Horizontal smooth pursuit and VOR without having increase dizziness Plan: Hold chart X 2 weeks and then re check if pt feels that he needs further PT. Pt did not call back and will be discharged at this time Discharge Comments: DC PT If there are questions or concerns regarding this patient's physical therapy, please feel free to call me at [phone]. Thank you for the referral of this patient. Sincerely, Vivian Hernandez, MPT Balance/Gait/Functional tests - Balance/Special Test Scores Dizziness Score: 16
== END 2021-05-20 19:00 | disposition home or self-care (01) ==
LOC: PT 12:30
PROVIDERS: PCP Family Medicine; Referring Provider Family Medicine; Visit Provider Family Medicine
DX: H81.10 Benign paroxysmal vertigo, unspecified ear (principal)
CPT/HCPCS: 97035; 97140; 97162; 97530

== ENCOUNTER → 2021-06-24 15:04 | Outpatient (CLI) | payer MEDICARE, OTHER, SELFPAY ==
[2021-06-24 18:05] LABS: International Normalized Ratio 1.8; Prothrombin Time (Protime)PT. 20.3 SECONDS (11.7-14.9)
[2021-06-24 18:11] LABS: Hematocrit 36.3 % (40-54); Hemoglobin 12.3 g/dL (13.0-16.5); Mean Corp Hgb Conc 33.9 g/dL (32-36); Mean Corpuscular Hgb 35.7 pg (27.0-32.0); Mean Corpuscular Volume 105.2 fL (80-94); Mean Platelet Vol. 10.5 fl (6.2-12.0); POSITIVE MORPHOLOGY YES; Platelet Count 339 K/mm3 (150-450); RBC Distribution Width CV 16.8 % (11.6-14.6); RBC Distribution Width SD 65.1 fl (35.1-43.9); Red Blood Count 3.45 M/mm3 (4.6-6.2); White Blood Count 9.4 K/mm3 (4.4-11.0)
[2021-06-24 18:21] LABS: Anion Gap 7 (5-15); BUN 36 mg/dL (7-18); BUN/Creat Ratio 16.9 RATIO (10-20); Calcium,Total 8.4 mg/dL (8.5-10.1); Chloride 109 mmol/L (98-107); Creatinine, Serum 2.13 mg/dL (0.70-1.30); EST Glomerular Filtration Rate 32 mL/min (>60); Est Glom Filt Rate - Afr Amer 39 mL/min (>60); Glucose 116 mg/dL (74-106); Potassium 3.8 mmol/L (3.5-5.1); Sodium Level 140 mmol/L (136-145)
[2021-06-24 18:40] LABS: Scan Indicated on CBC? Y/N YES- FLAGS NOTED
== END ==
PROVIDERS: PCP Family Medicine; Referring Provider Family Medicine; Visit Provider Internal Medicine Nephrology
DX: N18.32 Chronic kidney disease, stage 3b (principal); I48.91 Unspecified atrial fibrillation
CPT/HCPCS: 36415; 80048; 82306; 83970; 85027; 85610

== ENCOUNTER → 2021-07-28 | Outpatient (CLI) | payer MEDICARE, OTHER, SELFPAY ==
[2021-07-28 12:42] LABS: Protein, Urine (Random) 34.7 mg/dL (<11.9); Protein:Creat Ratio 265 mg/g CRE (0-200)
== END | disposition home or self-care (01) ==
PROVIDERS: PCP Family Medicine; Referring Provider Family Medicine; Visit Provider Internal Medicine Nephrology
DX: N18.32 Chronic kidney disease, stage 3b (principal)
CPT/HCPCS: 82570; 84156

== ENCOUNTER → 2021-08-04 13:46 | Outpatient (CLI) | payer MEDICARE, OTHER, SELFPAY ==
[2021-08-04 14:51] LABS: Color, Urine Brown (Yellow); Glucose, Dipstick Normal (Normal); Ketone-Dipstick 5 mg/dl (Negative); Leukocyte Esterase-Dipstick 500 /ul (Negative); Nitrite-Dipstick Positive (Negative); Occult Blood-Urine 250 /ul (Negative); Protein-Dipstick 100 mg/dl (Negative); Specific Gravity, Urine 1.015 (1.002-1.030); Urine Clarity Cloudy (Clear); Urine Urobilinogen 1 mg/dl (Normal)
[2021-08-04 14:53] LABS: Absolute Lymphocyte Count 1.06 X10^3/uL (0.83-4.51); Absolute Neutrophil Count 12.8 X10^3/uL (2.0-7.7); Basophil% 0.7 % (0-1); Eosinophil# 0.08 X10^3/uL; Eosinophils% 0.5 % (0-5); Hematocrit 38.1 % (40-54); Hemoglobin 12.8 g/dL (13.0-16.5); Lymphocyte # 1.06 X10^3/ul (0.83-4.51); Lymphocyte % 6.9 % (19-41); Mean Corp Hgb Conc 33.6 g/dL (32-36); Mean Corpuscular Hgb 36.1 pg (27.0-32.0); Mean Corpuscular Volume 107.3 fL (80-94); Mean Platelet Vol. 10.1 fl (6.2-12.0); Monocyte# 1.23 X10^3/uL; NRBC Flagged by Analyzer 0 % (0-5); Neutrophil # 12.75 X10^3/uL (2.7-7.7); Neutrophil % 82.9 % (47-70); Platelet Count 363 K/mm3 (150-450); RBC Distribution Width CV 15.5 % (11.6-14.6); RBC Distribution Width SD 62.4 fl (35.1-43.9); Red Blood Count 3.55 M/mm3 (4.6-6.2); White Blood Count 15.4 K/mm3 (4.4-11.0)
[2021-08-04 14:55] LABS: Urine Bilirubin Dipstick 1 mg/dL (Negative)
[2021-08-04 15:00] LABS: Prothrombin Time (Protime)PT. 21.6 SECONDS (11.7-14.9)
[2021-08-04 15:30] LABS: ALB/GLOB Ratio 0.7 RATIO (0.9-2.4); AST(SGOT) 87 U/L (15-37); Alanine Aminotransfer ALT/SGPT 115 U/L (16-61); Albumin, Serum 3.2 g/dL (3.2-5.0); Alkaline Phosphatase 75 U/L (45-117); Anion Gap 6 (5-15); BUN 36 mg/dL (7-18); BUN/Creat Ratio 17.4 RATIO (10-20); Calcium,Total 8.6 mg/dL (8.5-10.1); Chloride 109 mmol/L (98-107); Creatinine, Serum 2.07 mg/dL (0.70-1.30); EST Glomerular Filtration Rate 33 mL/min (>60); Est Glom Filt Rate - Afr Amer 40 mL/min (>60); Globulin 4.5 g/dL (2.2-4.2); Glucose 89 mg/dL (74-106); Potassium 3.5 mmol/L (3.5-5.1); Protein, Total 7.7 g/dL (6.4-8.2); Sodium Level 142 mmol/L (136-145)
== END ==
PROVIDERS: PCP Family Medicine; Referring Provider Family Medicine; Visit Provider Family Medicine
DX: R31.9 Hematuria, unspecified (principal); Z51.81 Encounter for therapeutic drug level monitoring
CPT/HCPCS: 36415; 80053; 81002; 85025; 85610; 87086; 87088; 87186

== ENCOUNTER → 2021-08-10 11:24 | Outpatient (CLI) | payer MEDICARE, OTHER, SELFPAY ==
[2021-08-10 15:07] LABS: International Normalized Ratio 2.2; Prothrombin Time (Protime)PT. 23.6 SECONDS (11.7-14.9)
== END ==
PROVIDERS: PCP Family Medicine; Visit Provider Family Medicine
DX: I48.91 Unspecified atrial fibrillation (principal)
CPT/HCPCS: 36415; 85610

== ENCOUNTER → 2021-08-18 | Outpatient (CLI) | payer MEDICARE, OTHER, SELFPAY | END | disposition home or self-care (01) | LOC: LABSPEC 11:04 | PROVIDERS: PCP Family Medicine; Referring Provider Family Medicine; Visit Provider Registered Nurse | DX: R30.0 Dysuria (principal) | CPT/HCPCS: 87086 ==

== ENCOUNTER 2021-09-21 08:49 | Outpatient (CLI) | payer MEDICARE, OTHER, SELFPAY ==
[2021-09-21 10:14] LABS: Absolute Lymphocyte Count 1.12 X10^3/uL (0.83-4.51); Basophil# 0.07 X10^3/uL; Eosinophil# 0.18 X10^3/uL; Eosinophils% 2.6 % (0-5); Hematocrit 35.4 % (40-54); Hemoglobin 11.7 g/dL (13.0-16.5); Lymphocyte # 1.12 X10^3/ul (0.83-4.51); Mean Corp Hgb Conc 33.1 g/dL (32-36); Mean Corpuscular Hgb 35.7 pg (27.0-32.0); Mean Corpuscular Volume 107.9 fL (80-94); Mean Platelet Vol. 10.3 fl (6.2-12.0); Monocyte# 0.62 X10^3/uL; Monocyte% 8.8 % (0-10); NRBC Flagged by Analyzer 0 % (0-5); Neutrophil # 4.97 X10^3/uL (2.7-7.7); Neutrophil % 70.9 % (47-70); Platelet Count 276 K/mm3 (150-450); RBC Distribution Width CV 15.3 % (11.6-14.6); Red Blood Count 3.28 M/mm3 (4.6-6.2)
[2021-09-21 10:53] LABS: AST(SGOT) 36 U/L (15-37); Alanine Aminotransfer ALT/SGPT 46 U/L (16-61); Albumin, Serum 3.5 g/dL (3.2-5.0); Alkaline Phosphatase 58 U/L (45-117); Anion Gap 7 (5-15); BUN 37 mg/dL (7-18); BUN/Creat Ratio 16.1 RATIO (10-20); Bilirubin, Direct 0.24 mg/dL (0.00-0.30); Calcium,Total 8.4 mg/dL (8.5-10.1); Chloride 105 mmol/L (98-107); Cholesterol 169 mg/dL (200); EST Glomerular Filtration Rate 29 mL/min (>60); Est Glom Filt Rate - Afr Amer 35 mL/min (>60); Globulin 3.7 g/dL (2.2-4.2); Glucose 90 mg/dL (74-106); High Density Lipoprotein 54 mg/dL; Potassium 3.7 mmol/L (3.5-5.1); Protein, Total 7.2 g/dL (6.4-8.2); Sodium Level 142 mmol/L (136-145); T4 Free Direct 1.32 ng/dL (0.76-1.46); Thyroid Stim Hormone (TSH) 6.43 uIU/mL (0.358-3.74); Triglycerides 90 mg/dL; Very Low Density Lipoprotein 18 mg/dL (5-40)
== END 2021-09-21 23:59 | disposition short-term general hospital (02) ==
LOC: MFPLAB 08:51
PROVIDERS: Nurse Practitioner Gerontology; PCP Family Medicine; Visit Provider Family Medicine
DX: E78.5 Hyperlipidemia, unspecified (principal); I10 Essential (primary) hypertension; R53.83 Other fatigue; Z79.899 Other long term (current) drug therapy
CPT/HCPCS: 36415; 80048; 80061; 80076; 84439; 84443; 85025

== ENCOUNTER 2021-09-29 11:15 | Outpatient (CLI) | payer MEDICARE, OTHER, SELFPAY ==
[2021-09-29 15:26] LABS: Absolute Lymphocyte Count 0.93 X10^3/uL (0.83-4.51); Absolute Neutrophil Count 5.8 X10^3/uL (2.0-7.7); Basophil# 0.07 X10^3/uL; Basophil% 0.9 % (0-1); Eosinophil# 0.18 X10^3/uL; Eosinophils% 2.4 % (0-5); Hematocrit 35.9 % (40-54); Hemoglobin 12.1 g/dL (13.0-16.5); Lymphocyte # 0.93 X10^3/ul (0.83-4.51); Lymphocyte % 12.2 % (19-41); Mean Corp Hgb Conc 33.7 g/dL (32-36); Mean Corpuscular Volume 109.8 fL (80-94); Mean Platelet Vol. 10.2 fl (6.2-12.0); Monocyte# 0.68 X10^3/uL; Monocyte% 8.9 % (0-10); NRBC Flagged by Analyzer 0 % (0-5); Neutrophil # 5.76 X10^3/uL (2.7-7.7); Neutrophil % 75.2 % (47-70); Platelet Count 302 K/mm3 (150-450); RBC Distribution Width CV 15.4 % (11.6-14.6); RBC Distribution Width SD 63.4 fl (35.1-43.9); Red Blood Count 3.27 M/mm3 (4.6-6.2); White Blood Count 7.7 K/mm3 (4.4-11.0)
[2021-09-29 15:41] LABS: Vitamin B12 800 pg/mL (211-911)
[2021-09-29 16:37] LABS: ALB/GLOB Ratio 0.9 RATIO (0.9-2.4); AST(SGOT) 33 U/L (15-37); Alanine Aminotransfer ALT/SGPT 44 U/L (16-61); Albumin, Serum 3.6 g/dL (3.2-5.0); Alkaline Phosphatase 59 U/L (45-117); Anion Gap 5 (5-15); BUN 38 mg/dL (7-18); Calcium,Total 8.1 mg/dL (8.5-10.1); Chloride 110 mmol/L (98-107); Creatinine, Serum 2.23 mg/dL (0.70-1.30); EST Glomerular Filtration Rate 30 mL/min (>60); Est Glom Filt Rate - Afr Amer 37 mL/min (>60); Ferritin 33 ng/mL (26-388); Globulin 3.9 g/dL (2.2-4.2); Glucose 94 mg/dL (74-106); Iron 47 ug/dL (65-175); Potassium 4.1 mmol/L (3.5-5.1); Protein, Total 7.5 g/dL (6.4-8.2); Sodium Level 140 mmol/L (136-145)
[2021-09-30 08:21] LABS: PTHIN 189.1 pg/mL (18.4-80.1)
[2021-10-07 13:48] LABS: Testosterone, Total 725
== END 2021-09-29 23:59 | disposition short-term general hospital (02) ==
LOC: MFPLAB 11:21
PROVIDERS: PCP Family Medicine; Referring Provider Family Medicine; Visit Provider Family Medicine
DX: N18.30 Chronic kidney disease, stage 3 unspecified (principal); D64.9 Anemia, unspecified; R53.83 Other fatigue
CPT/HCPCS: 36415; 80053; 82607; 82728; 82746; 83540; 83970; 84402; 84403; 85025

== ENCOUNTER 2021-10-06 11:07 | Outpatient (CLI) | payer MEDICARE, OTHER, SELFPAY ==
--- NOTE | 2021-10-06 11:09 | RAD_ITS ---
STUDY: X-RAY - LUMBAR SPINE REASON FOR EXAM: Male, 81 years old. LOW BACK PAIN compression fx, back pain, osteoporosis TECHNIQUE: XR Spine Lumbar Comp W/ Bending Min 6 Views COMPARISON: None FINDINGS: Normal lumbar lordosis. There is a levoscoliosis of the lumbar spine. Grade 1 retrolisthesis of L3 on 4. Grade 1 retrolisthesis of L2 on L3. Grade 1 retrolisthesis of L1 on L2. There is diffuse demineralization with multi-level endplate spondylosis. There is multi-level degenerative disc disease with multi-level disc space narrowing. Kyphoplasty changes at L1, T12 and T10. Endplate compression deformity of T12 T10 and T11. This is age-indeterminate. There are atherosclerotic vascular calcifications. The soft tissue structures are unremarkable. RAD/L/S Spine w Bend Min 6 Vw IMPRESSION: Degenerative changes of the spine, as detailed above. There are compression deformities of the spine. These are age-indeterminate. MRI could further evaluate if of concern. Electronically Signed: Ted Crocker MD at 15:53 EST ,
[2021-10-06 12:50] LABS: PSA,Total - Annual Screen 0.61 ng/mL (0.00-4.00)
== END 2021-10-06 23:59 | disposition home or self-care (01) ==
LOC: MTLAB 11:09
PROVIDERS: PCP Family Medicine; Referring Provider Family Medicine; Visit Provider Family Medicine
DX: Z12.5 Encounter for screening for malignant neoplasm of prostate (principal); M81.8 Other osteoporosis without current pathological fracture; Z80.42 Family history of malignant neoplasm of prostate
CPT/HCPCS: 36415; 72114; 84153; G0103

== ENCOUNTER 2021-10-08 08:22 | Outpatient (CLI) | payer MEDICARE, OTHER, SELFPAY ==
--- NOTE | 2021-10-09 10:48 | PFT ---
INTRODUCTION: The patient is an 82-year-old male that presents for pulmonary function studies secondary to a diagnosis of long-term amiodarone use. Respiratory therapy reported good patient effort. Bronchodilators were used during testing. INTERPRETATION: Forced expiration spirometry demonstrates no evidence of a large airways obstructive ventilatory defect. There was no significant response to aerosolized bronchodilators. Spirograms are of good quality and plateau normally. Body plethysmography was performed and reveals lung volumes to be within normal limits. Diffusing capacity by single breath CO is also within normal limits. IMPRESSION: Grossly normal pulmonary function studies.
== END 2021-10-08 23:59 | disposition home or self-care (01) ==
LOC: PSN 08:24
PROVIDERS: PCP Family Medicine; Referring Provider Nurse Practitioner Gerontology; Visit Provider Nurse Practitioner Gerontology
DX: Z79.899 Other long term (current) drug therapy (principal)
CPT/HCPCS: 94060; 94726; 94729

== ENCOUNTER 2021-10-19 23:52 | Emergency (ER) | payer MEDICARE, OTHER, SELFPAY ==
[2021-10-19 23:53] VITALS: BP 170/99; PULSE 74; RESP 16; TEMP 36.6; O2SAT 98; BMI 24.6
--- NOTE | 2021-10-20 00:18 | CT_ITS ---
EXAM: CT HEAD WITHOUT INTRAVENOUS CONTRAST CLINICAL INDICATION: headache TECHNIQUE: Multiple axial images were obtained of the head without intravenous contrast. CTDIvol = ( 44.99 ) mGy, DLP = ( 832.67 ) mGycm This CT exam was performed using one or more of the following dose reduction techniques: automated exposure control, adjustment of the mA and/or kV according to patient size, and/or use of iterative reconstruction technique. This report was created using [employer] report generation technology. COMPARISON: 12/09/2020 CT head FINDINGS: BRAIN AND EXTRA-AXIAL SPACES: No acute intracranial hemorrhage, mass effect or edema. No evidence of acute cortical stroke. Periventricular small vessel ischemic change. No midline shift or hydrocephalus. Diffuse parenchymal atrophy. Posterior fossa structures are unremarkable. Basal cisterns are patent. BONES/JOINTS: Unremarkable. No discrete lytic or blastic abnormalities. VASCULATURE: Atherosclerotic calcifications of the carotid siphons and vertebrobasilar arteries. SINUSES: Unremarkable as visualized. Clear. MASTOID AIR CELLS: Visualized sinuses and mastoid air cells are clear. ORBITS: Visualized globes, extraocular muscles, optic nerves and retrobulbar fat appear unremarkable. CT/Brain/Head without Contrast IMPRESSION: 1. No evidence of acute intracranial pathology. 2. Diffuse involutional changes and chronic ischemic small vessel white matter disease. Electronically Signed: John Awan MD at 1:07 EST ,
--- NOTE | 2021-10-20 00:18 | EKG12_ITS ---
Test Reason : DYSRHYTHMIA Blood Pressure : / mmHG Vent. Rate : 087 BPM Atrial Rate : 087 BPM P-R Int : 162 ms QRS Dur : 110 ms QT Int : 406 ms P-R-T Axes : 088 005 032 degrees QTc Int : 488 ms Normal sinus rhythm Prolonged QT Abnormal ECG Confirmed by RODOLFO KASPER, ELI ([id number]), editorial clerk CIPRIANO GATES ([id number]) on 10/21/2021 8:12:57 AM Referred By: ANYA Confirmed By:ELI REYNOLDS MD
[2021-10-20] MEDS: cloNIDine HCl 0.1 MG Tablet PO (00:26)
[2021-10-20 00:28] LABS: Absolute Lymphocyte Count 1.48 X10^3/uL (0.83-4.51); Absolute Neutrophil Count 8.2 X10^3/uL (2.0-7.7); Basophil# 0.06 X10^3/uL; Basophil% 0.5 % (0-1); Eosinophil# 0.18 X10^3/uL; Eosinophils% 1.6 % (0-5); Hematocrit 34.7 % (40-54); Hemoglobin 12.6 g/dL (13.0-16.5); Lymphocyte # 1.48 X10^3/ul (0.83-4.51); Lymphocyte % 13.4 % (19-41); Mean Corp Hgb Conc 36.3 g/dL (32-36); Mean Corpuscular Hgb 38.5 pg (27.0-32.0); Mean Corpuscular Volume 106.1 fL (80-94); Monocyte# 1.04 X10^3/uL; Monocyte% 9.4 % (0-10); NRBC Flagged by Analyzer 0 % (0-5); Neutrophil % 74.6 % (47-70); Platelet Count 306 K/mm3 (150-450); RBC Distribution Width CV 15.1 % (11.6-14.6); RBC Distribution Width SD 59.1 fl (35.1-43.9); Red Blood Count 3.27 M/mm3 (4.6-6.2)
[2021-10-20 00:41] LABS: Anion Gap 3 (5-15); BUN 34 mg/dL (7-18); BUN/Creat Ratio 14.3 RATIO (10-20); Calcium,Total 8.4 mg/dL (8.5-10.1); Chloride 111 mmol/L (98-107); Creatinine, Serum 2.38 mg/dL (0.70-1.30); EST Glomerular Filtration Rate 28 mL/min (>60); Est Glom Filt Rate - Afr Amer 34 mL/min (>60); Estimated Creatinine Clearance 23.95 ml/min; Glucose 105 mg/dL (74-106); Potassium 4.2 mmol/L (3.5-5.1); Sodium Level 141 mmol/L (136-145); Troponin-I HS 17 pg/mL (3.0-78.0)
[2021-10-20 01:03] LABS: International Normalized Ratio 2.4; Prothrombin Time (Protime)PT. 25.5 SECONDS (11.7-14.9)
--- NOTE | 2021-10-20 01:17 | EX.ED.DYSGE1 ---
HPI History of Present Illness Chief Complaint: Hypertension Narrative Narrative: Patient is a 81-year-old male with past medical history of chronic kidney disease and hypertension. He states that he checked his blood pressure this evening because he was having a mild headache and it was elevated. He states he took all of his medications as directed but his symptoms have persisted and his blood pressure checks have remained high at home. He denies any chest pain associated with this he denies any illicit drug use or excessive stimulant use. However because of the persistent hypertension he presents for evaluation [facility] Medical History Acute blood loss anemia Acute gastrointestinal bleeding Atherosclerotic heart disease of [place] coronary artery without angina pectoris Atrial fibrillation Atypical atrial flutter (12/2020) Benign prostatic hyperplasia BPH (benign prostatic hyperplasia) Cancer Chronic heart failure with preserved ejection fraction (HFpEF) Chronic kidney disease Chronic renal insufficiency CPAP (continuous positive airway pressure) dependence Debility Dysphagia Elevated liver enzymes Essential (primary) hypertension GERD (gastroesophageal reflux disease) GI bleed (2012) History of colon polyps History of hyperthyroidism HLD (hyperlipidemia) Hypertension Kidney disease Kidney stones Myocardial infarct Non-rheumatic tricuspid valve insufficiency Non-smoker Nonrheumatic mitral (valve) insufficiency 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 Osteoarthritis Paroxysmal atrial fibrillation 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 Thoracic aortic aneurysm (TAA) Home Medications finasteride 5 mg tablet 5 mg PO DAILY tab 06/03/20 [History Last Taken 01/20/21] warfarin 4 mg tablet 4 mg PO DAILY tab 06/03/20 [History Last Taken 01/19/21] denosumab [Prolia] 60 mg [id number] [id number] 12/09/20 [History Last Taken 12/05/20] calcium citrate 600 mg PO DAILY 01/20/21 [History Last Taken 01/20/21] Osteo Bi-Flex Triple Strength 2 tab PO DAILY 05/06/21 [History Last Taken Unknown] ipratropium bromide 2 spray INTRANASAL PRN PRN 05/06/21 [History Last Taken Unknown] nitroglycerin 0.4 mg SL DAILY 05/06/21 [History Last Taken Unknown] warfarin 2 mg PO FR 05/06/21 [History Last Taken Unknown] meclizine 25 mg PO TID PRN PRN #30 tab 05/07/21 [Rx Last Taken Unknown] coenzyme Q10 100 mg capsule 100 mg PO DAILY 09/18/21 [History Last Taken Unknown] diltiazem HCl 120 mg capsule,extended release 24 hr 180 mg PO DAILY 09/18/21 [History Last Taken Unknown] fluticasone propionate 50 mcg/actuation nasal spray,suspension 1 spray INTRANASAL BID 09/18/21 [History Last Taken Unknown] hydralazine 25 mg tablet 12.5 mg PO TID 09/18/21 [History Last Taken Unknown] lidocaine 5 % topical patch 1 patch TOPICAL DAILY 09/18/21 [History Last Taken Unknown] lisinopril 10 mg tablet 10 mg PO BID tab 09/18/21 [History Last Taken Unknown] metoprolol tartrate 25 mg tablet 12.5 mg PO BID tab 09/18/21 [History Last Taken Unknown] pantoprazole 40 mg tablet,delayed release 40 mg PO DAILY 09/18/21 [History Last Taken Unknown] polysaccharide iron complex 50 mg iron tablet mg PO 09/18/21 [History Last Taken Unknown] pyridoxine (vitamin B6) 50 mg tablet 50 mg PO DAILY 09/18/21 [History Last Taken Unknown] tamsulosin 0.4 mg capsule 0.4 mg PO DAILY 09/18/21 [History Last Taken Unknown] vitamin A palmitate-beta carotene 25,000 unit (15K-10K unit) tablet tab PO DAILY tab 09/18/21 [History Last Taken Unknown] vitamin Bcomplex no.10-folic acid ER 400 mcg tablet,extended release 1 tab PO DAILY 09/18/21 [History Last Taken Unknown] amiodarone 100 mg PO BID 10/19/21 [History Last Taken Unknown] Allergy/AdvReac Type Severity Reaction Status Date / Time diclofenac Allergy rash Verified 09/18/21 11:23 prednisone Allergy Rash Verified 09/18/21 11:23 Family History Father Cancer Prostate cancer Mother Hypertension Sister Hypertension Surgical History History of back surgery History of cardioversion (06/18/19) History of coronary artery stent placement (08/04/00) History of electrophysiologic study (08/08/00) History of hemorrhoidectomy History of hernia repair History of left heart catheterization (07/17/12) History of Zenaida fundoplication History of radiofrequency ablation procedure for cardiac arrhythmia (11/11/11) Social History Smoking Status: Never smoker alcohol intake: never substance use type: does not use caffeine: No ROS ROS ED Constitutional Constitutional ED: Denies chills or fever(s) ENT ENT ED: Denies sore throat Cardiovascular Cardiovascular: Denies chest pain Respiratory/Chest Respiratory/Chest: Reports dyspnea; Denies cough Gastrointestinal Gastrointestinal: Denies abdominal pain, diarrhea, nausea or vomiting Genitourinary Genitourinary ED: Denies dysuria Musculoskeletal Musculoskeletal: Denies myalgias Integumentary Denies rash Neurologic Neurologic: Reports headache(s) Hematologic/Lymphatic Hematologic/Lymphatic: Denies easy bleeding or easy bruising EXAM Physical Exam Const Vital Signs: 10/19/21 23:53 10/20/21 00:04 Temperature 97.9 F Temperature Source Temporal Pulse Rate 74 Respiratory Rate 16 Respiratory Effort Short of Breath Blood Pressure 170/99 H Blood Pressure Mean 122 Pulse Ox 98 Oxygen Delivery Method Room Air Positive well nourished and well developed General Appearance ED: well developed HEENT Reports moist mucous membranes Eyes PERRL and EOMs intact bilaterally Neck supple Resp normal respiratory effort and clear to auscultation bilaterally Cardio regular rate and regular rhythm GI non-tender and non-distended Auscultation: normoactive bowel sounds Palpation: soft Extremity normal to inspection Neuro oriented x3 and CN's II-XII intact bilaterally Sensorium / Orientation: alert Psych mental status grossly normal Skin no rashes or lesions noted MDM MDM MDM Narrative Medical decision making narrative: Patient presented to the ER mildly hypertensive with blood pressure of 170/99. Otherwise had a normal neurologic exam and no focal findings for endorgan damage. He did report mild headache however and he is on Coumadin therefore elected to perform basic laboratory studies as well as a head CT. Head CT revealed no acute bleed and blood work showed normal troponin with creatinine of 2.38 which is near his baseline and consistent with a history of chronic kidney disease. Patient was medicated with 10 mg of IV labetalol and 0.1 oral clonidine and had resolution of his hypertension. On reevaluation he is resting comfortably and his neuro exam remains normal and therefore with improvement of his blood pressure and no signs of endorgan damage he is safe for discharge Lab Data Attestation: I reviewed the patient's lab results. Labs: Laboratory Results - last 24 hr 10/20/21 10/20/21 10/20/21 00:07 00:07 00:26 WBC 11.0 RBC 3.27 L Hgb 12.6 L Hct 34.7 L MCV 106.1 H MCH 38.5 H MCHC 36.3 H RDW Std Deviation 59.1 H RDW Coeff of Pablo 15.1 H Plt Count 306 MPV 10.0 Immature Gran % (Auto) 0.500 Neut % (Auto) 74.6 H Lymph % (Auto) 13.4 L Douglas % (Auto) 9.4 Eos % (Auto) 1.6 Baso % (Auto) 0.5 Absolute Neuts (auto) 8.2 H Absolute Lymphs (auto) 1.48 Nucleated RBC % 0 PT 25.5 H INR 2.4 Sodium 141 Potassium 4.2 Chloride 111 H Carbon Dioxide 27.0 Anion Gap 3 L BUN 34 H Creatinine 2.38 H Estim Creat Clear Calc 23.95 Est GFR (MDRD) Af Amer 34 L Est GFR (MDRD) Non-Af 28 L BUN/Creatinine Ratio 14.3 Glucose 105 Calcium 8.4 L Troponin I High Sens 17 Radiography Diagnostic Testing: Clinical Impression(s) from Imaging Studies Brain CT 10/20/21 00:18 IMPRESSION: 1. No evidence of acute intracranial pathology. 2. Diffuse involutional changes and chronic ischemic small vessel white matter disease. Electronically Signed: John Awan MD at 1:07 EST , Discharge Plan Triage Chief Complaint: Hypertension ED Provider: John Gallagher Dx/Rx/DC Orders Clinical Impression: Accelerated hypertension, Chronic kidney disease Instructions: CKD Dc, Hypertension Dc Prescriptions: No Action finasteride [Proscar] 5 mg tablet 5 mg PO DAILY RF: 0 warfarin 4 mg tablet 4 mg PO DAILY RF: 0 tamsulosin 0.4 mg capsule 0.4 mg PO DAILY RF: 0 pyridoxine (vitamin B6) 50 mg tablet 50 mg PO DAILY RF: 0 coenzyme Q10 [Co Q-10] 100 mg capsule 100 mg PO DAILY RF: 0 vitamin a [id number]-A-gvzahixh 25,000 unit (15K-10K unit) tablet PO DAILY RF: 0 polysaccharide iron complex 50 mg iron tablet PO RF: 0 lidocaine 5 % adhesive patch,medicated 1 patch topical DAILY RF: 0 fluticasone propionate 50 mcg/actuation spray,suspension 1 spray intranasal BID RF: 0 pantoprazole 40 mg tablet,delayed release (DR/EC) 40 mg PO DAILY RF: 0 hydralazine 25 mg tablet 12.5 mg PO TID RF: 0 vitamin B complex no.10-FA 400 mcg tablet extended release 1 tab PO DAILY RF: 0 diltiazem HCl 120 mg capsule,extended release 24hr 180 mg PO DAILY RF: 0 metoprolol tartrate 25 mg tablet 12.5 mg PO BID RF: 0 Prolia 60 MG/ML syringe 60 mg SQ [id number] RF: 0 lisinopril 10 mg tablet 10 mg PO BID RF: 0 calcium citrate 200 mg (950 mg) tablet 600 mg PO DAILY RF: 0 warfarin 2 mg Tablet 2 mg PO FR RF: 0 ipratropium bromide 21 mcg (0.03 %) [place],Non-Aerosol 2 spray INTRANASAL PRN PRN (Reason: SOB) RF: 0 Osteo Bi-Flex Triple Strength 750 mg-644 mg- 30 mg-1 mg Tablet 2 tab PO DAILY RF: 0 nitroglycerin 0.4 mg tablet, sublingual 0.4 mg SL DAILY RF: 0 meclizine 25 mg Tablet 25 mg PO TID PRN PRN (Reason: Dizziness) Qty: 30 RF: 0 amiodarone 200 mg tablet 100 mg PO BID RF: 0 Primary Care Provider: César Chinchilla Referrals: César Chinchilla MD [Primary Care Provider] - Activity Restrictions/Additional Instructions: Please continue your medications as directed by your family doctor but discussed possible medication adjustment secondary to the elevated hypertension today Disposition Disposition: Home, Self Care
[2021-10-20 01:49] VITALS: BP 157/72; PULSE 78; RESP 14; O2SAT 96
--- NOTE | 2021-10-20 12:50 | CASEMGMT ---
RADHA PORTER ED follow-up: Date of ER visit: 10/19/2021 Presenting ER complaint: Hypertension RADHA PORTER placed call to patient's telephone number listed on demographics and patient answered. RADHA PORTER introduced self and role at [facility]. Patient reports doing better today. Patient reports he has a BP monitor at home and typically monitors BP but has not checked today. Patient encouraged to keep BP log for PCP follow-up. Patient reports he has attempted to schedule PCP follow-up and is awaiting a call back from the office. Patient reports he is compliant with all medications. Patient denies questions or concerns. RADHA Pedersen CM
== END 2021-10-20 01:54 | disposition home or self-care (01) ==
PROVIDERS: Emergency Provider Emergency Medicine; PCP Family Medicine; Visit Provider Emergency Medicine
DX: I13.0 Hypertensive heart and chronic kidney disease with heart failure and stage 1 through stage 4 chronic kidney disease, or unspecified chronic kidney disease (principal); I50.32 Chronic diastolic (congestive) heart failure; I27.21 Secondary pulmonary arterial hypertension; I71.2 Thoracic aortic aneurysm, without rupture; I48.0 Paroxysmal atrial fibrillation; N18.32 Chronic kidney disease, stage 3b; E78.5 Hyperlipidemia, unspecified; I25.10 Atherosclerotic heart disease of native coronary artery without angina pectoris; N40.0 Benign prostatic hyperplasia without lower urinary tract symptoms; K21.9 Gastro-esophageal reflux disease without esophagitis; Z87.19 Personal history of other diseases of the digestive system; Z86.010 Personal history of colon polyps; Z87.442 Personal history of urinary calculi; I25.2 Old myocardial infarction; I34.8 Other nonrheumatic mitral valve disorders; M19.90 Unspecified osteoarthritis, unspecified site; Z79.01 Long term (current) use of anticoagulants; Z79.899 Other long term (current) drug therapy; Z95.5 Presence of coronary angioplasty implant and graft
CPT/HCPCS: 70450; 80048; 84484; 85025; 85610; 93005; 96374; 99283; A4216

== ENCOUNTER 2021-11-04 15:15 | Outpatient (RCR) | payer MEDICARE, OTHER, SELFPAY ==
[2021-11-04 16:05] LABS: International Normalized Ratio 1.9; Prothrombin Time (Protime)PT. 21.4 SECONDS (11.7-14.9)
== END 2021-11-26 18:00 | disposition home or self-care (01) ==
LOC: LAB 15:15
PROVIDERS: PCP Family Medicine; Visit Provider Internal Medicine Cardiovascular Disease
DX: I48.0 Paroxysmal atrial fibrillation (principal); I48.4 Atypical atrial flutter
CPT/HCPCS: 36415; 85610

== ENCOUNTER 2021-11-18 15:54 | Outpatient (CLI) | payer MEDICARE, OTHER, SELFPAY ==
[2021-11-18 16:43] LABS: Anion Gap 4 (5-15); BUN 35 mg/dL (7-18); BUN/Creat Ratio 15.4 RATIO (10-20); Calcium,Total 8.5 mg/dL (8.5-10.1); Chloride 105 mmol/L (98-107); Creatinine, Serum 2.27 mg/dL (0.70-1.30); EST Glomerular Filtration Rate 30 mL/min (>60); Est Glom Filt Rate - Afr Amer 36 mL/min (>60); Glucose 102 mg/dL (74-106); Potassium 3.7 mmol/L (3.5-5.1); Sodium Level 140 mmol/L (136-145)
[2021-11-18 16:44] LABS: BNP,B-Type NATRIURETIC PEPTIDE 347.6 pg/mL (0-100)
== END 2021-11-18 23:59 | disposition home or self-care (01) ==
PROVIDERS: PCP Family Medicine; Visit Provider Nurse Practitioner Family
DX: I50.32 Chronic diastolic (congestive) heart failure (principal); I48.0 Paroxysmal atrial fibrillation; I25.10 Atherosclerotic heart disease of native coronary artery without angina pectoris; Z95.5 Presence of coronary angioplasty implant and graft; I36.1 Nonrheumatic tricuspid (valve) insufficiency; I34.0 Nonrheumatic mitral (valve) insufficiency; R06.00 Dyspnea, unspecified
CPT/HCPCS: 36415; 80048; 83880

== ENCOUNTER 2021-12-04 10:57 | Outpatient (RCR) | payer MEDICARE, OTHER, SELFPAY ==
[2021-12-04 11:23] LABS: Absolute Neutrophil Count 8.3 X10^3/uL (2.0-7.7); Basophil# 0.04 X10^3/uL; Basophil% 0.4 % (0-1); Eosinophil# 0.13 X10^3/uL; Eosinophils% 1.3 % (0-5); Hematocrit 35.4 % (40-54); Lymphocyte % 9.1 % (19-41); Mean Corp Hgb Conc 33.9 g/dL (32-36); Mean Corpuscular Hgb 36.1 pg (27.0-32.0); Mean Corpuscular Volume 106.6 fL (80-94); Mean Platelet Vol. 9.6 fl (6.2-12.0); Monocyte# 0.52 X10^3/uL; Monocyte% 5.2 % (0-10); NRBC Flagged by Analyzer 0 % (0-5); Neutrophil # 8.29 X10^3/uL (2.7-7.7); Neutrophil % 83.5 % (47-70); Platelet Count 287 K/mm3 (150-450); RBC Distribution Width CV 15.7 % (11.6-14.6); RBC Distribution Width SD 62.2 fl (35.1-43.9); Red Blood Count 3.32 M/mm3 (4.6-6.2); White Blood Count 9.9 K/mm3 (4.4-11.0)
[2021-12-04 11:30] LABS: International Normalized Ratio 1.7; Prothrombin Time (Protime)PT. 19.6 SECONDS (11.7-14.9)
[2021-12-04 12:09] LABS: BNP,B-Type NATRIURETIC PEPTIDE 543.2 pg/mL (0-100)
[2021-12-04 12:19] LABS: Anion Gap 3 (5-15); BUN 39 mg/dL (7-18); BUN/Creat Ratio 18.5 RATIO (10-20); Calcium,Total 8.6 mg/dL (8.5-10.1); Chloride 109 mmol/L (98-107); Creatinine, Serum 2.11 mg/dL (0.70-1.30); EST Glomerular Filtration Rate 32 mL/min (>60); Est Glom Filt Rate - Afr Amer 39 mL/min (>60); Glucose 127 mg/dL (74-106); Potassium 4.1 mmol/L (3.5-5.1); Sodium Level 138 mmol/L (136-145); Thyroid Stim Hormone (TSH) 5.24 uIU/mL (0.358-3.74)
== END 2021-12-04 18:00 | disposition home or self-care (01) ==
LOC: LAB 10:57
PROVIDERS: Nurse Practitioner Family; PCP Family Medicine; Referring Provider Internal Medicine Cardiovascular Disease; Visit Provider Internal Medicine Cardiovascular Disease
DX: I48.91 Unspecified atrial fibrillation (principal)
CPT/HCPCS: 36415; 80048; 83880; 84436; 84443; 85025; 85610

== ENCOUNTER 2021-12-17 12:31 | Outpatient (CLI) | payer MEDICARE, OTHER, SELFPAY ==
--- NOTE | 2021-12-17 12:33 | CT_ITS ---
INDICATION: Thoracic aortic aneurysm 11/2020=4.3 EXAMINATION: CTA Chest WO/W Contrast Injection TECHNIQUE: Helically acquired images were obtained of the chest following administration of IV contrast. A radiation dose optimization technique was used for this scan. 3D postprocessing images including MIPS were reviewed. IV Contrast dosage and agent: IV 100mL [id number] COMPARISON: 12/10/2020 FINDINGS: Lungs: Scattered groundglass opacities. Chronic interstitial fibrotic changes. Mediastinum: The heart is moderately enlarged. No mediastinal, hilar or axillary adenopathy. There is a stable 4 cm ascending thoracic aortic aneurysm. No obvious filling defect seen within the visualized pulmonary arteries. Pleura: Scattered calcified pleural plaques. Bones/Soft tissues: There are diffuse degenerative changes of the spine. Status post multi vertebral augmentation. Upper abdomen: No visualized abnormalities in the upper abdomen. CT/CTA Chest W/WO Contrast IMPRESSION: Stable 4 cm ascending thoracic aortic aneurysm. Electronically Signed: Tai Bryant MD at 23:37 EDT ,
== END 2021-12-17 23:59 | disposition home or self-care (01) ==
LOC: CT 12:32
PROVIDERS: PCP Family Medicine; Referring Provider Nurse Practitioner Gerontology; Visit Provider Nurse Practitioner Gerontology
DX: I71.2 Thoracic aortic aneurysm, without rupture (principal)
CPT/HCPCS: 71275; Q9967

== ENCOUNTER → 2021-12-23 | Outpatient (CLI) | payer MEDICARE, OTHER, SELFPAY ==
[2021-12-23 18:23] LABS: International Normalized Ratio 1.7; Prothrombin Time (Protime)PT. 19.2 SECONDS (11.7-14.9)
[2021-12-23 18:36] LABS: Anion Gap 4 (5-15); BUN 37 mg/dL (7-18); BUN/Creat Ratio 18.1 RATIO (10-20); Chloride 109 mmol/L (98-107); Creatinine, Serum 2.04 mg/dL (0.70-1.30); EST Glomerular Filtration Rate 34 mL/min (>60); Est Glom Filt Rate - Afr Amer 41 mL/min (>60); Glucose 77 mg/dL (74-106); Potassium 4.6 mmol/L (3.5-5.1); Sodium Level 139 mmol/L (136-145)
[2021-12-23 18:57] LABS: Free T3 1.9 pg/mL (2.18-3.98); T4 Total, Thyroxin 12.1 ug/dL (4.5-12.1); Thyroid Stim Hormone (TSH) 4.13 uIU/mL (0.358-3.74)
== END | disposition home or self-care (01) ==
PROVIDERS: Internal Medicine Cardiovascular Disease; Physician Assistant Medical; PCP Family Medicine; Referring Provider Family Medicine; Visit Provider Nurse Practitioner Family
DX: N18.9 Chronic kidney disease, unspecified (principal); I50.32 Chronic diastolic (congestive) heart failure; I48.4 Atypical atrial flutter; E03.9 Hypothyroidism, unspecified
CPT/HCPCS: 36415; 80048; 84436; 84443; 84481; 85610

== ENCOUNTER 2022-01-02 15:16 | Inpatient (IN) | payer MEDICARE, OTHER, SELFPAY ==
[2022-01-02] VITALS (11 sets, daily range): BP systolic 78–132; BP diastolic 56–74; PULSE 21–113; RESP 16–26; TEMP 36.4–37.4; O2SAT 91–98; BMI 24.2; BMI 23.6
--- NOTE | 2022-01-02 15:33 | CT_ITS ---
INDICATION: periumbilical pain, n/v EXAMINATION: CT Abdomen And Pelvis W/O Contrast Injection TECHNIQUE: Helically acquired images were obtained of the abdomen and pelvis without the use of IV contrast. A radiation dose optimization technique was used for this scan. Oral contrast: None. COMPARISON: 05/19/2012 FINDINGS: Evaluation of the solid organs and vascular structures is limited without intravenous contrast. Visualized lung bases: Interstitial fibrotic changes. Liver: Unremarkable Gallbladder: Unremarkable Spleen: Unremarkable Pancreas: Unremarkable Adrenal Glands: Unremarkable Kidneys: Bilateral simple renal cysts. Vasculature: Moderate aortoiliac atherosclerotic disease. GI Tract: Short loop of proximal sigmoid colon demonstrates circumferential wall thickening and surrounding mesenteric pattern. Extensive colonic diverticula. Lymphadenopathy: None Peritoneum: No ascites. Bladder: Unremarkable Reproductive organs: Unremarkable Bones/Soft tissues: There are diffuse degenerative changes of the spine. Chronic fracture deformities of multiple thoracic and lumbar vertebral body status post kyphoplasty. CT/Abdomen/Pelvis without Cont IMPRESSION: Acute sigmoid diverticulitis. No focal fluid collection or free air. Chronic fracture deformities of multiple thoracic and lumbar vertebral body status post kyphoplasty. Interstitial fibrotic changes. Electronically Signed: Tai Bryant MD at 17:03 EDT ,
--- NOTE | 2022-01-02 15:34 | EKG12_ITS ---
Test Reason : NAUSEA AND VOMITING Blood Pressure : / mmHG Vent. Rate : 092 BPM Atrial Rate : 092 BPM P-R Int : 096 ms QRS Dur : 094 ms QT Int : 368 ms P-R-T Axes : 086 039 063 degrees QTc Int : 455 ms Sinus rhythm with short MT Otherwise normal ECG Confirmed by MARCE KASPER, ADAM ([id number]), supervising editor news reel CIPRIANO GATES ([id number]) on 01/04/2022 1:29:28 PM Referred By: BB Confirmed By:ADAM ZHENG MD
--- NOTE | 2022-01-02 15:37 | EDS_ITS ---
HPI History of Present Illness Chief Complaint: Nausea/Vomiting/Diarrhea Informant: patient Narrative Narrative: Very limited information from this patient who does not feel well. He states he has had chest pain off-and-on for the past several days, more persistent today nonpleuritic substernal aching. He states he is feeling short of breath today. He denies coughing today but unknown recently. He states he has had periumbilical abdominal cramping, vomiting, and diarrhea that has been there today. He has urinated less today. [facility] Medical History Acute blood loss anemia Acute gastrointestinal bleeding Atherosclerotic heart disease of [place] coronary artery without angina pectoris Atrial fibrillation Atypical atrial flutter (12/2020) Benign prostatic hyperplasia BPH (benign prostatic hyperplasia) Cancer Chronic heart failure with preserved ejection fraction (HFpEF) Chronic kidney disease Chronic renal insufficiency CPAP (continuous positive airway pressure) dependence Debility Dysphagia Elevated liver enzymes Essential (primary) hypertension GERD (gastroesophageal reflux disease) GI bleed (2012) History of colon polyps History of hyperthyroidism HLD (hyperlipidemia) Hypertension Kidney disease Kidney stones Myocardial infarct Non-rheumatic tricuspid valve insufficiency Non-smoker Nonrheumatic mitral (valve) insufficiency 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 Osteoarthritis Paroxysmal atrial fibrillation 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 Thoracic aortic aneurysm (TAA) Home Medications finasteride 5 mg tablet 5 mg PO DAILY tab 06/03/20 [History Last Taken 01/20/21] denosumab [Prolia] 60 mg SQ [id number] 12/09/20 [History Last Taken 12/05/20] Osteo Bi-Flex Triple Strength 2 tab PO DAILY 05/06/21 [History Last Taken Unknown] ipratropium bromide 2 spray INTRANASAL PRN PRN 05/06/21 [History Last Taken Unknown] nitroglycerin 0.4 mg SL DAILY 05/06/21 [History Last Taken Unknown] meclizine 25 mg PO TID PRN PRN #30 tab 05/07/21 [Rx Last Taken Unknown] coenzyme Q10 100 mg capsule 100 mg PO DAILY 09/18/21 [History Last Taken Unknown] lidocaine 5 % topical patch 1 patch TOPICAL DAILY 09/18/21 [History Last Taken Unknown] metoprolol tartrate 25 mg tablet 12.5 mg PO BID tab 09/18/21 [History Last Taken Unknown] pantoprazole 40 mg tablet,delayed release 40 mg PO DAILY 09/18/21 [History Last Taken Unknown] pyridoxine (vitamin B6) 50 mg tablet 50 mg PO DAILY 09/18/21 [History Last Taken Unknown] vitamin Bcomplex no.10-folic acid ER 400 mcg tablet,extended release 1 tab PO DAILY 09/18/21 [History Last Taken Unknown] amiodarone 100 mg PO BID 10/19/21 [History Last Taken Unknown] calcium citrate 200 mg (950 mg) tablet 200 mg PO BID tab 11/18/21 [History Last Taken Unknown] fluticasone propionate 50 mcg/actuation nasal spray,suspension 1 spray INTRANASAL BID PRN 11/18/21 [History Last Taken Unknown] hydralazine 25 mg tablet 12.5 mg PO TID tab 11/18/21 [History Last Taken Unknown] polysaccharide iron complex 50 mg iron tablet 50 mg PO DAILY tab 11/18/21 [History Last Taken Unknown] tamsulosin 0.4 mg capsule 0.4 mg PO DAILY PRN 11/18/21 [History Last Taken Unknown] vitamin A palmitate-beta carotene 25,000 unit (15K-10K unit) tablet 1 tab PO DAILY tab 11/18/21 [History Last Taken Unknown] warfarin 2 mg tablet 2 mg PO .COMPLEX tab 11/18/21 [History Last Taken Unknown] warfarin 4 mg tablet 4 mg PO .COMPLEX tab 11/18/21 [History Last Taken Unknown] furosemide 40 mg tablet 40 mg PO .PRN #90 tab 12/04/21 [Rx Last Taken Unknown] lisinopril 10 mg tablet 10 mg PO DAILY tab 12/08/21 [History Last Taken Unknown] diltiazem HCl 120 mg capsule,extended release 24 hr 120 mg PO DAILY #90 cap 12/23/21 [Rx Last Taken Unknown] Allergy/AdvReac Type Severity Reaction Status Date / Time diclofenac Allergy rash Verified 12/08/21 13:58 prednisone Allergy Rash Verified 12/08/21 13:58 Family History Father Cancer Prostate cancer Mother Hypertension Sister Hypertension Surgical History History of back surgery History of cardioversion (06/18/19) History of coronary artery stent placement (08/04/00) History of electrophysiologic study (08/08/00) History of hemorrhoidectomy History of hernia repair History of left heart catheterization (07/17/12) History of Zenaida fundoplication History of radiofrequency ablation procedure for cardiac arrhythmia (11/11/11) Social History Smoking Status: Never smoker alcohol intake: never substance use type: does not use caffeine: No ROS ROS ED Review of Systems ROS Unobtainable: other Details: Limited somewhat due to acuity since the patient is dry heaving and does not feel well Constitutional Constitutional ED: Reports fatigue and malaise; Denies chills or fever(s) Eyes Eyes: Denies change in vision or diplopia ENT ENT ED: Denies rhinorrhea or sore throat Cardiovascular Cardiovascular: Reports chest pain; Denies palpitations Respiratory/Chest Respiratory/Chest: Reports dyspnea; Denies cough Gastrointestinal Gastrointestinal: Reports abdominal pain, diarrhea, nausea and vomiting Genitourinary Genitourinary ED: Denies dysuria or hematuria Musculoskeletal Musculoskeletal: Denies back pain or neck pain Integumentary Denies abscess or rash Neurologic Neurologic: Denies headache(s), paresthesias or weakness Psychiatric Psychiatric: Denies anxiety or suicidal thoughts EXAM Physical Exam Const Vital Signs: 01/02/22 15:17 01/02/22 15:49 01/02/22 16:04 Temperature 97.5 F L Temperature Source Axillary Pulse Rate 101 H 101 H Respiratory Rate 23 H 21 H Blood Pressure 92/59 L 78/56 L Blood Pressure Mean 70 63 Pulse Ox 98 97 Oxygen Delivery Method Room Air Room Air Room Air 01/02/22 17:09 Temperature Temperature Source Pulse Rate 91 Respiratory Rate 26 H Blood Pressure 93/58 L Blood Pressure Mean 69 Pulse Ox 95 Oxygen Delivery Method Room Air Positive well nourished and well developed Constitutional Narrative: Ill-appearing, occasionally dry heaving General Appearance ED: well developed and NAD HEENT Reports moist mucous membranes normocephalic and atraumatic Eyes PERRL and EOMs intact bilaterally Neck full ROM, supple and no meningeal signs Resp normal respiratory effort and clear to auscultation bilaterally Cardio regular rate, regular rhythm, no murmurs and no JVD Cardio Narrative: Slight tachycardia GI GI Narrative: Appears mildly distended/bloated but soft. Mildly tender epigastrium and suprapubic areas but otherwise nontender. No guarding or rebound tenderness. Auscultation: normoactive bowel sounds Palpation: soft Back/Spine no CVA tenderness General Back: other FROM Extremity normal to inspection General Extremety ED: Negative for edema, pulses abnormal or tenderness General Extremity: Negative for edema or pulses abnormal Neuro oriented x3, CN's II-XII intact bilaterally and no sensory deficits noted Sensorium / Orientation: awake and alert Motor Exam: strength 5/5 throughout Skin no rashes or lesions noted and no wounds MDM MDM MDM Narrative Medical decision making narrative: Patient has mildly depressed blood pressure, mild tachycardia, mildly tachypneic but in no respiratory distress and is afebrile with good oxygen saturations on room air. I have relatively limited information about the context and timing of all of his symptoms. Therefore there is a broad differential and a septic work-up in addition to cardiac, pulmonary, and infectious etiologies is obtained in addition to giving him IV fluids and Zofran. He required more nausea medication later and was given Reglan, his blood pressure states similar after liter of fluid, we added more to that after his work-up returned an elevated lactate at 3.9, white blood count, his CT shows diverticulitis so we added antibiotics Cipro and Flagyl to cover that and the plan will be to admit him to the hospital for further care. With regards to his shortness of breath, he is not in distress, he does not sound clinically like he is in acute failure and his chest x-ray 1 view on my interpretation does not appear to be florid failure. I did not get a BNP, given his renal failure it would be relatively useless acutely. Lab Data Attestation: I reviewed the patient's lab results. Labs: Laboratory Results - last 24 hr 01/02/22 01/02/22 01/02/22 15:47 15:47 15:47 WBC 17.2 H RBC 3.77 L Hgb 13.8 Hct 40.1 MCV 106.4 H MCH 36.6 H MCHC 34.4 RDW Std Deviation 61.7 H RDW Coeff of Pablo 15.4 H Plt Count 338 MPV 9.8 Immature Gran % (Auto) 0.800 Neut % (Auto) 86.7 H Lymph % (Auto) 8.0 L [place] % (Auto) 3.7 Eos % (Auto) 0.6 Baso % (Auto) 0.2 Absolute Neuts (auto) 14.9 H Absolute Lymphs (auto) 1.37 Nucleated RBC % 0 Sodium 140 Potassium 3.6 Chloride 108 H Carbon Dioxide 21.0 Anion Gap 11 BUN 47 H Creatinine 2.75 H Estim Creat Clear Calc 20.73 Est GFR (MDRD) Af Amer 29 L Est GFR (MDRD) Non-Af 24 L BUN/Creatinine Ratio 17.1 Glucose 124 H Lactic Acid 3.9 H* Calcium 9.2 Total Bilirubin 0.60 AST 56 H ALT 65 H Alkaline Phosphatase 76 Troponin I High Sens 30 Total Protein 7.7 Albumin 3.4 Globulin 4.3 H Albumin/Globulin Ratio 0.8 L Lipase 183 Urine Color Urine Clarity Urine pH Ur Specific [place] Urine Protein Urine Glucose (UA) Urine Ketones Urine Occult Blood Urine Nitrite Urine Bilirubin Urine Urobilinogen Ur Leukocyte Esterase Urine RBC Urine WBC Ur Squamous Epith Cells Urine Bacteria Urine Mucus 01/02/22 16:53 WBC RBC Hgb Hct MCV MCH MCHC RDW Std Deviation RDW Coeff of [place] Plt Count MPV Immature Gran % (Auto) Neut % (Auto) Lymph % (Auto) [place] % (Auto) Eos % (Auto) Baso % (Auto) Absolute Neuts (auto) Absolute Lymphs (auto) Nucleated RBC % Sodium Potassium Chloride Carbon Dioxide Anion Gap BUN Creatinine Estim Creat Clear Calc Est GFR (MDRD) Af Amer Est GFR (MDRD) Non-Af BUN/Creatinine Ratio Glucose Lactic Acid Calcium Total Bilirubin AST ALT Alkaline Phosphatase Troponin I High Sens Total Protein Albumin Globulin Albumin/Globulin Ratio Lipase Urine Color Yellow Urine Clarity Sl. Cloudy Urine pH 5.0 Ur Specific [place] 1.020 Urine Protein 100 H Urine Glucose (UA) Normal Urine Ketones 5 H Urine Occult Blood 10 H Urine Nitrite Negative Urine Bilirubin 3 H Urine Urobilinogen 4 H Ur Leukocyte Esterase 100 H Urine RBC 0 SEEN Urine WBC 10-25 SEEN Ur Squamous Epith Cells 0 SEEN Urine Bacteria 1+ Urine Mucus 0 SEEN Radiography Chest X-Ray - ED: 1 View, Read by ED Physician and No Acute Disease Diagnostic Testing: Clinical Impression(s) from Imaging Studies Abdomen/Pelvis CT 01/02/22 15:33 IMPRESSION: Acute sigmoid diverticulitis. No focal fluid collection or free air. Chronic fracture deformities of multiple thoracic and lumbar vertebral body status post kyphoplasty. Interstitial fibrotic changes. Electronically Signed: Tai Bryant MD at 17:03 EDT , Chest X-Ray 01/02/22 16:35 IMPRESSION: No acute radiographic abnormalities. Electronically Signed: Tai Bryant MD at 16:58 EDT , Rhythm Strip Rhythm Strip: Sinus Rhythm Rate: 95 EKG Initial EKG: Attestation: I personally reviewed and interpreted this EKG as follows: Interpretation: Sinus Rhythm and No Acute Injury Pattern Prior: Unchanged Discharge Plan Dx/Rx/DC Orders Clinical Impression: Diverticulitis, Sepsis, Chest pain, Acute dyspnea, Acute kidney injury superimposed on chronic kidney disease Disposition Disposition: Acute Care [facility]
[2022-01-02] MEDS: 0.9% Normal Saline 1,000 ML 1000 ML IV (15:42)
[2022-01-02] MEDS: Ondansetron 4 MG/2 ML Vial IV (15:47)
[2022-01-02 15:56] LABS: Absolute Lymphocyte Count 1.37 X10^3/uL (0.83-4.51); Absolute Neutrophil Count 14.9 X10^3/uL (2.0-7.7); Basophil# 0.04 X10^3/uL; Basophil% 0.2 % (0-1); Eosinophil# 0.11 X10^3/uL; Eosinophils% 0.6 % (0-5); Hematocrit 40.1 % (40-54); Hemoglobin 13.8 g/dL (13.0-16.5); Lymphocyte # 1.37 X10^3/ul (0.83-4.51); Mean Corp Hgb Conc 34.4 g/dL (32-36); Mean Corpuscular Hgb 36.6 pg (27.0-32.0); Mean Corpuscular Volume 106.4 fL (80-94); Mean Platelet Vol. 9.8 fl (6.2-12.0); Monocyte# 0.63 X10^3/uL; Monocyte% 3.7 % (0-10); NRBC Flagged by Analyzer 0 % (0-5); Neutrophil # 14.91 X10^3/uL (2.7-7.7); Neutrophil % 86.7 % (47-70); Platelet Count 338 K/mm3 (150-450); RBC Distribution Width CV 15.4 % (11.6-14.6); RBC Distribution Width SD 61.7 fl (35.1-43.9); Red Blood Count 3.77 M/mm3 (4.6-6.2); White Blood Count 17.2 K/mm3 (4.4-11.0)
--- NOTE | 2022-01-02 16:03 | ED.RN ---
Left message with sister in law, Neelima Durant, per patient's request.
[2022-01-02 16:15] LABS: ALB/GLOB Ratio 0.8 RATIO (0.9-2.4); AST(SGOT) 56 U/L (15-37); Alanine Aminotransfer ALT/SGPT 65 U/L (16-61); Albumin, Serum 3.4 g/dL (3.2-5.0); Alkaline Phosphatase 76 U/L (45-117); Anion Gap 11 (5-15); BUN 47 mg/dL (7-18); BUN/Creat Ratio 17.1 RATIO (10-20); Calcium,Total 9.2 mg/dL (8.5-10.1); Chloride 108 mmol/L (98-107); Creatinine, Serum 2.75 mg/dL (0.70-1.30); EST Glomerular Filtration Rate 24 mL/min (>60); Est Glom Filt Rate - Afr Amer 29 mL/min (>60); Estimated Creatinine Clearance 20.73 ml/min; Globulin 4.3 g/dL (2.2-4.2); Glucose 124 mg/dL (74-106); Lipase 183 U/L (73-393); Potassium 3.6 mmol/L (3.5-5.1); Protein, Total 7.7 g/dL (6.4-8.2); Sodium Level 140 mmol/L (136-145); Troponin-I HS 30 pg/mL (3.0-78.0)
[2022-01-02 16:20] LABS: Lactic Acid 3.9 mmol/L (0.4-1.9)
--- NOTE | 2022-01-02 16:35 | RAD_ITS ---
INDICATION: cp/sob EXAMINATION/TECHNIQUE: X-RAY - XR Chest 1 View COMPARISON: 05/06/2021. FINDINGS: Right basilar atelectasis. Lungs are clear. The cardiomediastinal silhouette is unremarkable. No pleural effusion or pneumothorax. Degenerative changes of the thoracic spine. RAD/Chest 1 View (Portable) IMPRESSION: No acute radiographic abnormalities. Electronically Signed: Tai Bryant MD at 16:58 EDT ,
[2022-01-02 16:58] LABS: Mucous, Urine 0 SEEN /hpf (<or=2+); Red Blood Cells-Urine 0 SEEN /hpf (0-5); Squamous Epithelial Cells - UA 0 SEEN /hpf (0-5)
[2022-01-02 17:04] LABS: Color, Urine Yellow (Yellow); Glucose, Dipstick Normal (Normal); Ketone-Dipstick 5 mg/dl (Negative); Leukocyte Esterase-Dipstick 100 /ul (Negative); Nitrite-Dipstick Negative (Negative); Occult Blood-Urine 10 /ul (Negative); Protein-Dipstick 100 mg/dl (Negative); Urine Clarity Sl. Cloudy (Clear); Urine Urobilinogen 4 mg/dl (Normal)
[2022-01-02 17:05] LABS: Urine Bilirubin Dipstick 3 mg/dL (Negative)
[2022-01-02 17:15] LABS: Bacteria 1+ /hpf (None Seen); White Blood Cells 10-25 SEEN /hpf (0-5)
[2022-01-02] MEDS: Metoclopramide 10 MG/2 ML Vial 5 MG IV (17:20)
[2022-01-02] MEDS: 0.9% Normal Saline 1,000 ML 999 ML IV (17:20)
--- NOTE | 2022-01-02 17:22 | HP.PCM.HOS_ITS ---
HPI - General General Date of Admission: 01/02/22 HPI Narrative RICHIE HANSEN, is a 81 M with an extensive PMH as outlined who presents via the ED on 01/02/2022 with a complaint of abdominal pain and nausea as well as vomiting. He said symptoms started early this morning. He felt very weak and also had some shortness of breath. He denied any coughing, chest pain, palpitations or dizziness. He admitted to lower abdominal pain which was cramping in nature. 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 VItals in the ED were BP of 93/58, UT of 91,. RR of 26 and he was saturating at 95% on room air. CBC showed wbc of 17.2, Hb of 13.8 and platelets of 338. Chemistry showed sodium of 140, bicarb of 21, Cr of 2.75 and lactic acid of 3.9. Urinalysis showed 100 leucocyte esterase and 1+ bacteria. CT of the abdomen and pelvis showed acute sigmoid diverticulitis with no focal fluid collection or free air and chronic fracture deformities of multiple thoracic and lumbar vertebral body status post kyphoplasty. He is being admitted to be managed for sepsis due to acute sigmoid diverticulitis. [facility] Medical History Acute blood loss anemia Acute gastrointestinal bleeding Atherosclerotic heart disease of [place] coronary artery without angina pectoris Atrial fibrillation Atypical atrial flutter (12/2020) Benign prostatic hyperplasia BPH (benign prostatic hyperplasia) Cancer Chronic heart failure with preserved ejection fraction (HFpEF) Chronic kidney disease Chronic renal insufficiency CPAP (continuous positive airway pressure) dependence Debility Dysphagia Elevated liver enzymes Essential (primary) hypertension GERD (gastroesophageal reflux disease) GI bleed (2012) History of colon polyps History of hyperthyroidism HLD (hyperlipidemia) Hypertension Kidney disease Kidney stones Myocardial infarct Non-rheumatic tricuspid valve insufficiency Non-smoker Nonrheumatic mitral (valve) insufficiency 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 Osteoarthritis Paroxysmal atrial fibrillation 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 Thoracic aortic aneurysm (TAA) Home Medications finasteride 5 mg tablet 5 mg PO DAILY tab 06/03/20 [History Last Taken 01/20/21] denosumab [Prolia] 60 mg SQ [id number] 12/09/20 [History Last Taken 12/05/20] Osteo Bi-Flex Triple Strength 2 tab PO DAILY 05/06/21 [History Last Taken Unknown] ipratropium bromide 2 spray INTRANASAL PRN PRN 05/06/21 [History Last Taken Unknown] nitroglycerin 0.4 mg SL DAILY 05/06/21 [History Last Taken Unknown] meclizine 25 mg PO TID PRN PRN #30 tab 05/07/21 [Rx Last Taken Unknown] lidocaine 5 % topical patch 1 patch TOPICAL DAILY 09/18/21 [History Last Taken Unknown] metoprolol tartrate 25 mg tablet 12.5 mg PO BID tab 09/18/21 [History Last Taken Unknown] pantoprazole 40 mg tablet,delayed release 40 mg PO DAILY 09/18/21 [History Last Taken Unknown] vitamin Bcomplex no.10-folic acid ER 400 mcg tablet,extended release 1 tab PO DAILY 09/18/21 [History Last Taken Unknown] amiodarone 100 mg PO BID 10/19/21 [History Last Taken Unknown] calcium citrate 200 mg (950 mg) tablet 200 mg PO BID tab 11/18/21 [History Last Taken Unknown] fluticasone propionate 50 mcg/actuation nasal spray,suspension 1 spray INTRANA DONAL BID PRN 11/18/21 [History Last Taken Unknown] hydralazine 25 mg tablet 12.5 mg PO TID tab 11/18/21 [History Last Taken Unknown] tamsulosin 0.4 mg capsule 0.4 mg PO DAILY 11/18/21 [History Last Taken Unknown] vitamin A palmitate-beta carotene 25,000 unit (15K-10K unit) tablet 1 tab PO DAILY tab 11/18/21 [History Last Taken Unknown] warfarin 2 mg tablet 2 mg PO .COMPLEX tab 11/18/21 [History Last Taken Unknown] warfarin 4 mg tablet 4 mg PO .COMPLEX tab 11/18/21 [History Last Taken Unknown] furosemide 40 mg tablet 40 mg PO .PRN #90 tab 12/04/21 [Rx Last Taken Unknown] lisinopril 10 mg tablet 10 mg PO DAILY tab 12/08/21 [History Last Taken Unknown] diltiazem HCl 120 mg capsule,extended release 24 hr 120 mg PO DAILY #90 cap 12/23/21 [Rx Last Taken Unknown] Allergy/AdvReac Type Severity Reaction Status Date / Time diclofenac Allergy rash Verified 12/08/21 13:58 prednisone Allergy Rash Verified 12/08/21 13:58 Family History Father Cancer Prostate cancer Mother Hypertension Sister Hypertension Surgical History History of back surgery History of cardioversion (06/18/19) History of coronary artery stent placement (08/04/00) History of electrophysiologic study (08/08/00) History of hemorrhoidectomy History of hernia repair History of left heart catheterization (07/17/12) History of Zenaida fundoplication History of radiofrequency ablation procedure for cardiac arrhythmia (11/11/11) Social History Smoking Status: Never smoker alcohol intake: never substance use type: does not use caffeine: No ROS Constitutional Constitutional: Reports chills, fatigue, fever(s), malaise and weakness; Denies anorexia or change in weight Eyes Eyes: Denies change in vision ENT HEENT: Denies dysphagia, headache(s), nasal discharge or sore throat Cardiovascular Cardiovascular: Reports chest pain; Denies dyspnea on exertion, lightheadedness, orthopnea, palpitations, paroxysmal nocturnal dyspnea, rapid heart rate or syncope Respiratory/Chest Respiratory/Chest: Denies cough, dyspnea, shortness of breath at rest or shortness of breath with exertion Gastrointestinal Gastrointestinal: Reports abdominal pain, diarrhea, nausea and vomiting; Denies constipation, loose stools or melena Genitourinary Genitourinary: Denies burning urination or dysuria Neurologic Neurologic: Denies confusion Psychiatric Psychiatric: Denies anxiety Vital Signs Vital Signs Vital Signs: 01/02/22 15:17 01/02/22 15:49 01/02/22 16:04 Temperature 97.5 F L Temperature Source Axillary Pulse Rate 101 H 101 H Respiratory Rate 23 H 21 H Blood Pressure 92/59 L 78/56 L Blood Pressure Mean 70 63 Pulse Ox 98 97 Oxygen Delivery Method Room Air Room Air Room Air 01/02/22 17:09 Temperature Temperature Source Pulse Rate 91 Respiratory Rate 26 H Blood Pressure 93/58 L Blood Pressure Mean 69 Pulse Ox 95 Oxygen Delivery Method Room Air Weight Weight: 159 lb 6.307 oz Body Mass Index (BMI) 24.2 Physical Exam Const alert and oriented x3 Orientation / Consciousness: lethargic HEENT normocephalic and head/scalp atraumatic HEENT Narrative: dry oral mucosa Eyes PERRL, EOMs intact bilaterally and conjunctivae normal Neck no lymphadenopathy, supple and no JVD Resp normal respiratory effort, no retractions, no use of accessory muscles and clear to auscultation bilaterally Resp Narrative: tachypneic Cardio S1 normal heart sound, S2 normal heart sound and no murmurs Cardio Narrative: tachycardic, afib 30 day event monitor attached to sternum GI GI Narrative: abdomen soft, moderate suprapubic and left lower quadrant tenderness, no guarding or rebound tenderness Extremity normal to inspection, full ROM and no clubbing, cyanosis or edema Peripheral Pulses: Yes pulses 2+ throughout Skin no rashes or lesions noted Neuro CN's II-XII intact bilaterally and moves all extremities Neuro Narrative: confused Sensorium / Orientation: awake and alert Psych affect normal Results Lab / Micro Data Result Diagrams: 01/02/22 15:47 01/02/22 15:47 Labs: Laboratory Results - last 24 hr 01/02/22 15:47: WBC 17.2 H, RBC 3.77 L, Hgb 13.8, Hct 40.1, MCV 106.4 H, MCH 36.6 H, MCHC 34.4, RDW Std Deviation 61.7 H, RDW Coeff of Pablo 15.4 H, Plt Count 338, MPV 9.8, Immature Gran % (Auto) 0.800, Neut % (Auto) 86.7 H, Lymph % (Auto) 8.0 L, [place] % (Auto) 3.7, Eos % (Auto) 0.6, Baso % (Auto) 0.2, Absolute Neuts (auto) 14.9 H, Absolute Lymphs (auto) 1.37, Nucleated RBC % 0 01/02/22 15:47: Sodium 140, Potassium 3.6, Chloride 108 H, Carbon Dioxide 21.0, Anion Gap 11, BUN 47 H, Creatinine 2.75 H, Estim Creat Clear Calc 20.73, Est GFR (MDRD) Af Amer 29 L, Est GFR (MDRD) Non-Af 24 L, BUN/Creatinine Ratio 17.1, Glucose 124 H, Calcium 9.2, Total Bilirubin 0.60, AST 56 H, ALT 65 H, Alkaline Phosphatase 76, Troponin I High Sens 30, Total Protein 7.7, Albumin 3.4, Globul in 4.3 H, Albumin/Globulin Ratio 0.8 L, Lipase 183 01/02/22 15:47: Lactic Acid 3.9 H* 01/02/22 16:53: Urine Color Yellow, Urine Clarity Sl. Cloudy, Urine pH 5.0, Ur Specific [place] 1.020, Urine Protein 100 H, Urine Glucose (UA) Normal, Urine Ketones 5 H, Urine Occult Blood 10 H, Urine Nitrite Negative, Urine Bilirubin 3 H, Urine Urobilinogen 4 H, Ur Leukocyte Esterase 100 H, Urine RBC 0 SEEN, Urine WBC 10-25 SEEN, Ur Squamous Epith Cells 0 SEEN, Urine Bacteria 1+, Urine Mucus 0 SEEN Micro: Microbiology 01/02/22 16:00 Nasal Secretion SARS-CoV-2 & FLU Antigen (Rapid) - Final Rhythm Strip Rhythm Strip: Sinus Rhythm Rate: 95 Radiology Impression Abdomen/Pelvis CT 01/02/22 15:33 IMPRESSION: Acute sigmoid diverticulitis. No focal fluid collection or free air. Chronic fracture deformities of multiple thoracic and lumbar vertebral body status post kyphoplasty. Interstitial fibrotic changes. Electronically Signed: Tai Bryant MD at 17:03 EDT , Chest X-Ray 01/02/22 16:35 IMPRESSION: No acute radiographic abnormalities. Electronically Signed: Tai Bryant MD at 16:58 EDT , Assessment & Plan Assessment/Plan (1) Diverticulitis: (2) Sepsis: (3) Acute kidney injury superimposed on chronic kidney disease: PLAN: #Sepsis due to acute diverticulitis * admit to PCU with telemetry * get blood cultures * started on IV ciprofloxacin and metronidazole in the ED; will start on IV zosyn * hydrate with IVF NS @ 150cc/hr x 2 bags * general surgery consult * keep NPO for now * #Lactic acidosis: lactic acid is 3.9. Likely due to dehydration and sepsis. Should improve with hydration. Will trend #FE on CKD 3B * CR is 2.75; baselinje CR is ~ 2.04 * hydrate gently with IVF and trend * likely pre renal due to decreased intake #History of afib * hold amiodarone due to hypotension. Also hold cardizem as well as metoprolol * has a 30 [address] monitor in [address]; says this was ordered by his boat builder because his HR and BP had been poorly controlled. Per cardiology note dated 12/08/21, his BP in the office ws low, in the 80s and 90s systolic. * on coumadin; will hold this and start heparin drip as he is NPO * had radiofrequency ablation in 2011. * #Hypertension; on metoprolol, hydralazine and cardizem. hold off all these as BP is running low in the 80s #BPH: hold flomax due to low BP #Subclinical hypothyroidism * TSH on 12/23/2021 was 4.13 but free T4 was 12.1. This is indicative of subclinical hypothyroidism. His free T3 was low though at 1.9. * To follow-up with PCP on outpatient basis. * DVT prophylaxis; * not indicated as patient is on coumadin. Hold coumadin as patient is NPO and start heparin drip in the interim COde status: full code * Patient counseled extensively about different types of CODE STATUS including full code, DNR CCA and DNR CCA. Patient elects to be full code. * Total atin-vg-bfnm time 17 minutes. Charges/Coding Visit Charges Inpatient E&M: 23508 Init Hosp L3 Procedures Hospitalists Procedures: 65592 Advncd Care Plan 30 Min
[2022-01-02] MEDS: metroNIDAZOLE 500 MG/100 ML BAG 100 MG IV (17:54)
--- NOTE | 2022-01-02 18:01 | ED.RN ---
Patient is a poor historian when it comes to his daily medications. He knew a few of them but gave vague answers and did not know if he took some of the supplements that are listed on his medication list.
[2022-01-02] MEDS: Ciprofloxacin 400 MG/200 ML BAG 200 MG IV (18:15)
[2022-01-02 18:17] LABS: International Normalized Ratio 2.2; Prothrombin Time (Protime)PT. 23.7 SECONDS (11.7-14.9)
[2022-01-02] MEDS: 0.9% Normal Saline 1,000 ML 150 ML IV (18:53)
[2022-01-02 19:51] LABS: Reflex Lactate? Y
[2022-01-02 21:08] LABS: Lactic Acid 1.7 mmol/L (0.4-1.9)
[2022-01-03] VITALS (13 sets, daily range): BP systolic 100–120; BP diastolic 64–87; PULSE 87–111; RESP 14–18; TEMP 36.4–37.2; O2SAT 93–98
[2022-01-03] MEDS: 0.9% Normal Saline 1,000 ML 150 ML IV (00:57)
[2022-01-03 02:45] LABS: Absolute Lymphocyte Count 0.35 X10^3/uL (0.83-4.51); Absolute Neutrophil Count 27.3 X10^3/uL (2.0-7.7); Basophil# 0.06 X10^3/uL; Basophil% 0.2 % (0-1); Eosinophil# 0.01 X10^3/uL; Hematocrit 31.6 % (40-54); Hemoglobin 10.7 g/dL (13.0-16.5); Lymphocyte # 0.35 X10^3/ul (0.83-4.51); Lymphocyte % 1.2 % (19-41); Mean Corp Hgb Conc 33.9 g/dL (32-36); Mean Corpuscular Hgb 36.1 pg (27.0-32.0); Mean Corpuscular Volume 106.8 fL (80-94); Mean Platelet Vol. 10.2 fl (6.2-12.0); Monocyte# 1.27 X10^3/uL; Monocyte% 4.3 % (0-10); NRBC Flagged by Analyzer 0 % (0-5); Neutrophil # 27.33 X10^3/uL (2.7-7.7); Neutrophil % 93.2 % (47-70); POSITIVE DIFFERENTIAL YES; Platelet Count 258 K/mm3 (150-450); RBC Distribution Width CV 15.7 % (11.6-14.6); RBC Distribution Width SD 61.4 fl (35.1-43.9); Red Blood Count 2.96 M/mm3 (4.6-6.2); White Blood Count 29.4 K/mm3 (4.4-11.0)
[2022-01-03 02:46] LABS: Differential Indicated SCAN CRITERIA MET
[2022-01-03 03:00] LABS: Partial Thromboplast Time 93.4 Seconds (24.1-36.2)
[2022-01-03 03:19] LABS: ALB/GLOB Ratio 0.7 RATIO (0.9-2.4); AST(SGOT) 38 U/L (15-37); Alanine Aminotransfer ALT/SGPT 49 U/L (16-61); Albumin, Serum 2.5 g/dL (3.2-5.0); Alkaline Phosphatase 45 U/L (45-117); Anion Gap 9 (5-15); BUN 52 mg/dL (7-18); Calcium,Total 7.5 mg/dL (8.5-10.1); Chloride 114 mmol/L (98-107); Creatinine, Serum 2.48 mg/dL (0.70-1.30); EST Glomerular Filtration Rate 27 mL/min (>60); Est Glom Filt Rate - Afr Amer 32 mL/min (>60); Estimated Creatinine Clearance 22.98 ml/min; Globulin 3.4 g/dL (2.2-4.2); Glucose 133 mg/dL (74-106); Potassium 3.7 mmol/L (3.5-5.1); Protein, Total 5.9 g/dL (6.4-8.2); Sodium Level 145 mmol/L (136-145)
[2022-01-03 03:25] LABS: Anisocytosis 2+; Macrocytosis 3+
[2022-01-03 09:40] LABS: Partial Thromboplast Time 74.5 Seconds (24.1-36.2)
--- NOTE | 2022-01-03 12:24 | PN.HOSP_ITS ---
Subjective Subjective Patient seen and examined. HE complains of diarrhea today. his abdominal pain has improved. HE had an uneventful night and review of systems is otherwise negative. WBC is up to 29.4 today. He is tachypneic today. Objective Data Objective Data Vital Signs: Vital Signs Temp Pulse Resp BP Pulse Ox 99 F 111 H 14 120/87 H 96 01/03/22 09:59 01/03/22 11:36 01/03/22 09:59 01/03/22 09:59 01/03/22 09:59 Oxygen Delivery Method Room Air Weight: 155 lb 3.287 oz Body Mass Index (BMI) 23.6 Intake & Output: Intake and Output for Last 24 Hours 01/01/22 01/02/22 01/03/22 23:59 23:59 23:59 Intake Total 2350 / 2350 3.83 / 2032.83 Balance 2350 / 2350 2032.83 / 2032. Lab / Micro Data Result Diagrams: 01/03/22 02:08 01/03/22 02:08 Labs: Laboratory Results - last 24 hr 01/02/22 15:47: WBC 17.2 H, RBC 3.77 L, Hgb 13.8, Hct 40.1, MCV 106.4 H, MCH 36.6 H, MCHC 34.4, RDW Std Deviation 61.7 H, RDW Coeff of Pablo 15.4 H, Plt Count 338, MPV 9.8, Immature Gran % (Auto) 0.800, Neut % (Auto) 86.7 H, Lymph % (Auto) 8.0 L, [place] % (Auto) 3.7, Eos % (Auto) 0.6, Baso % (Auto) 0.2, Absolute Neuts (auto) 14.9 H, Absolute Lymphs (auto) 1.37, Nucleated RBC % 0 01/02/22 15:47: Sodium 140, Potassium 3.6, Chloride 108 H, Carbon Dioxide 21.0, Anion Gap 11, BUN 47 H, Creatinine 2.75 H, Estim Creat Clear Calc 20.73, Est GFR (MDRD) Af Amer 29 L, Est GFR (MDRD) Non-Af 24 L, BUN/Creatinine Ratio 17.1, Glucose 124 H, Calcium 9.2, Total Bilirubin 0.60, AST 56 H, ALT 65 H, Alkaline Phosphatase 76, Troponin I High Sens 30, Total Protein 7.7, Albumin 3.4, Globulin 4.3 H, Albumin/Globulin Ratio 0.8 L, Lipase 183 01/02/22 15:47: Lactic Acid 3.9 H* 01/02/22 16:53: Urine Color Yellow, Urine Clarity Sl. Cloudy, Urine pH 5.0, Ur Specific [place] 1.020, Urine Protein 100 H, Urine Glucose (UA) Normal, Urine Ketones 5 H, Urine Occult Blood 10 H, Urine Nitrite Negative, Urine Bilirubin 3 H, Urine Urobilinogen 4 H, Ur Leukocyte Esterase 100 H, Urine RBC 0 SEEN, Urine WBC 10-25 SEEN, Ur Squamous Epith Cells 0 SEEN, Urine Bacteria 1+, Urine Mucus 0 SEEN 01/02/22 17:55: PT 23.7 H, INR 2.2, APTT 32.0 01/02/22 20:29: Free T4 1.40 01/02/22 20:29: Lactic Acid 1.7 01/03/22 02:08: WBC 29.4 H, RBC 2.96 L, Hgb 10.7 L, Hct 31.6 L, MCV 106.8 H, MCH 36.1 H, MCHC 33.9, RDW Std Deviation 61.4 H, RDW Coeff of Pablo 15.7 H, Plt Count 258, MPV 10.2, Immature Gran % (Auto) 1.100 H, Neut % (Auto) 93.2 H, Lymph % (Auto) 1.2 L, [place] % (Auto) 4.3, Eos % (Auto) 0.0, Baso % (Auto) 0.2, Absolute Neuts (auto) 27.3 H, Absolute Lymphs (auto) 0.35 L, Nucleated RBC % 0, Anisocytosis 2+, Macrocytosis 3+ 01/03/22 02:08: Sodium 145, Potassium 3.7, Chloride 114 H, Carbon Dioxide 22.0, Anion Gap 9, BUN 52 H, Creatinine 2.48 H, Estim Creat Clear Calc 22.98, Est GFR (MDRD) Af Amer 32 L, Est GFR (MDRD) Non-Af 27 L, BUN/Creatinine Ratio 21.0 H, Glucose 133 H, Calcium 7.5 L, Total Bilirubin 0.60, AST 38 H, ALT 49, Alkaline Phosphatase 45, Total Protein 5.9 L, Albumin 2.5 L, Globulin 3.4, Albumin/Globulin Ratio 0.7 L 01/03/22 02:08: APTT 93.4 H* 01/03/22 09:14: APTT 74.5 H Micro: Microbiology 01/02/22 Unknown Urine, Catheterized Urine Culture - Preliminary Culture exhibits no growth. 01/02/22 16:00 Nasal Secretion SARS-CoV-2 & FLU Antigen (Rapid) - Final Radiography Diagnostic Testing: Radiology Impression Abdomen/Pelvis CT 01/02/22 15:33 IMPRESSION: Acute sigmoid diverticulitis. No focal fluid collection or free air. Chronic fracture deformities of multiple thoracic and lumbar vertebral body status post kyphoplasty. Interstitial fibrotic changes. Electronically Signed: Tai Bryant MD at 17:03 EDT , Chest X-Ray 01/02/22 16:35 IMPRESSION: No acute radiographic abnormalities. Electronically Signed: Tai Bryant MD at 16:58 EDT , Rhythm Strip Rhythm Strip: Sinus Rhythm Rate: 95 Physical Exam Const alert, oriented x3 and no apparent distress Orientation / Consciousness: lethargic HEENT normocephalic, head/scalp atraumatic and moist oral mucous membranes Head and Scalp: normocephalic Eyes PERRL, EOMs intact bilaterally and conjunctivae normal Neck no lymphadenopathy, supple and no JVD Resp normal respiratory effort, no retractions, no use of accessory muscles and clear to auscultation bilaterally Resp Narrative: tachypneic Cardio S1 normal heart sound, S2 normal heart sound and no murmurs Cardio Narrative: tachycardic, afib 30 day event monitor attached to sternum GI GI Narrative: abdomen soft, minimal suprapubic and left lower quadrant tenderness, no guarding or rebound tenderness Extremity normal to inspection, full ROM and no clubbing, cyanosis or edema Peripheral Pulses: Yes pulses 2+ throughout Skin no rashes or lesions noted Neuro CN's II-XII intact bilaterally and moves all extremities Sensorium / Orientation: awake and alert Psych affect normal Assessment & Plan Assessment/Plan (1) Diverticulitis: (2) Sepsis: (3) Acute kidney injury superimposed on chronic kidney disease: PLAN: #Sepsis due to acute diverticulitis * on IV zosyn * wbc has trended up to 29 today * being gently hydrated with IVF * currently NPO. * awaiting general surgery evaluation * * general surgery consult * keep NPO for now * #Lactic acidosis: resolved. 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 Baseline is ~ 2 * trend with gentle hydration with IVF * will monitor * * #History of afib * patient tachycardic with HR at 111. * afib meds on hold * will resume cardizem. continue holding amiodarone and metoprolol as BP is on the lowe side of normal * on heparin drip * has a [address] in [address]; says this was ordered by his risk control specialist because his HR and BP had been poorly controlled. Per cardiology note dated 12/08/21, his BP in the office ws low, in the 80s and 90s systolic. * on coumadin; will hold this and start heparin drip as he is NPO * had radiofrequency ablation in 2011. * #Hypertension; on metoprolol, hydralazine and cardizem. Will resume cardizem. #BPH: hold flomax due to low BP #Subclinical hypothyroidism * TSH on 12/23/2021 was 4.13 but free T4 was 12.1. This is indicative of subclinical hypothyroidism. His free T3 was low though at 1.9. * To follow-up with PCP on outpatient basis. * DVT prophylaxis; * not indicated as patient is on coumadin. Hold coumadin as patient is NPO and start heparin drip in the interim COde status: full code * Charges/Coding Visit Charges Inpatient E&M: 33692 Subs Hosp L3
--- NOTE | 2022-01-03 13:44 | EX.PCM.CON.S ---
Assessment & Plan Assessment/Plan (1) Acute diverticulitis of intestine: PLAN: Continue antibiotics by IV as you are doing. No surgical intervention required at this point in time. Clinically he is improving however, his WBC is significantly increased from 17 to 29, this may be the patient's continued inflammatory reaction Patient can start sips of clear liquids, I will order this. HPI Consult Data Date of Consult: 01/03/22 HPI Narrative HPI Narrative: RICHIE HANSEN, is a 81 M who presents with acute diverticulitis. I was consulted by Dr. Adela Farley, a hospitalist at [facility]. The patient has multiple medical morbidities. He noted sudden onset of lower abdominal pain on morning of 01/02/2022. He stated that he he also had nausea/emesis and feeling weak. He also had shortness of breath at rest. His workup at [facility] ED revealed a WBC of 29.4K, creat of 2.75 and lactic acid of 3.9. CT scan revealed acute diverticulitis with no free air or free fluid. He states that he had previous episode of diverticulitis about 10 years ago. He states that initially his pain was initially a 10 out of 10, but presently it is 3-4 out of 10. He states that he is passing flatus. He also has multiple episodes of loose stools. He also notes some BRBPR. He also feels hungry. [facility] Medical History Acute blood loss anemia Acute diverticulitis of intestine Acute gastrointestinal bleeding Atherosclerotic heart disease of [place] coronary artery without angina pectoris Atrial fibrillation Atypical atrial flutter (12/2020) Benign prostatic hyperplasia BPH (benign prostatic hyperplasia) Cancer Chronic heart failure with preserved ejection fraction (HFpEF) Chronic kidney disease Chronic renal insufficiency CPAP (continuous positive airway pressure) dependence Debility Dysphagia Elevated liver enzymes Essential (primary) hypertension GERD (gastroesophageal reflux disease) GI bleed (2012) History of colon polyps History of hyperthyroidism HLD (hyperlipidemia) Hypertension Kidney disease Kidney stones Myocardial infarct Non-rheumatic tricuspid valve insufficiency Non-smoker Nonrheumatic mitral (valve) insufficiency 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 Osteoarthritis Paroxysmal atrial fibrillation Secondary pulmonary arterial hypertension Sleep apnea Stage 3b chronic kidney disease Thoracic aortic aneurysm (TAA) Home Medications finasteride 5 mg tablet 5 mg PO DAILY tab 10/06/20 [History Last Taken 01/20/21] denosumab [Prolia] 60 mg SQ [id number] 12/09/20 [History Last Taken 12/05/20] Osteo Bi-Flex Triple Strength 2 tab PO DAILY 05/06/21 [History Last Taken Unknown] ipratropium bromide 2 spray INTRANASAL PRN PRN 05/06/21 [History Last Taken Unknown] nitroglycerin 0.4 mg SL DAILY 05/06/21 [History Last Taken Unknown] meclizine 25 mg PO TID PRN PRN #30 tab 05/07/21 [Rx Last Taken Unknown] lidocaine 5 % topical patch 1 patch TOPICAL DAILY 09/18/21 [History Last Taken Unknown] metoprolol tartrate 25 mg tablet 12.5 mg PO BID tab 09/18/21 [History Last Taken Unknown] pantoprazole 40 mg tablet,delayed release 40 mg PO DAILY 09/18/21 [History Last Taken Unknown] vitamin Bcomplex no.10-folic acid ER 400 mcg tablet,extended release 1 tab PO DAILY 09/18/21 [History Last Taken Unknown] amiodarone 100 mg PO BID 10/19/21 [History Last Taken Unknown] calcium citrate 200 mg (950 mg) tablet 200 mg PO BID tab 11/18/21 [History Last Taken Unknown] fluticasone propionate 50 mcg/actuation nasal spray,suspension 1 spray INTRANASAL BID PRN 11/18/21 [History Last Taken Unknown] hydralazine 25 mg tablet 12.5 mg PO TID tab 11/18/21 [History Last Taken Unknown] tamsulosin 0.4 mg capsule 0.4 mg PO DAILY 11/18/21 [History Last Taken Unknown] vitamin A palmitate-beta carotene 25,000 unit (15K-10K unit) tablet 1 tab PO DAILY tab 11/18/21 [History Last Taken Unknown] warfarin 2 mg tablet 2 mg PO .COMPLEX tab 11/18/21 [History Last Taken Unknown] warfarin 4 mg tablet 4 mg PO .COMPLEX tab 11/18/21 [History Last Taken Unknown] furosemide 40 mg tablet 40 mg PO .PRN #90 tab 12/04/21 [Rx Last Taken Unknown] lisinopril 10 mg tablet 10 mg PO DAILY tab 12/08/21 [History Last Taken Unknown] diltiazem HCl 120 mg capsule,extended release 24 hr 120 mg PO DAILY #90 cap 12/23/21 [Rx Last Taken Unknown] Allergy/AdvReac Type Severity Reaction Status Date / Time diclofenac Allergy rash Verified 12/08/21 13:58 prednisone Allergy Rash Verified 12/08/21 13:58 Family History Father Cancer Prostate cancer Mother Hypertension Sister Hypertension Surgical History History of back surgery History of cardioversion (06/18/19) History of coronary artery stent placement (08/04/00) History of electrophysiologic study (08/08/00) History of hemorrhoidectomy History of hernia repair History of left heart catheterization (07/17/12) History of Zenaida fundoplication History of radiofrequency ablation procedure for cardiac arrhythmia (11/11/11) Social History Smoking Status: Never smoker alcohol intake: never substance use type: does not use caffeine: No ROS Constitutional Constitutional: Reports chills, fatigue and fever(s) Cardiovascular Cardiovascular: Reports dyspnea Respiratory/Chest Respiratory/Chest: Denies productive cough Gastrointestinal Gastrointestinal: Reports abdominal pain, diarrhea, nausea and vomiting Genitourinary Genitourinary: Reports hematuria Musculoskeletal Musculoskeletal: Reports back pain Integumentary Integumentary: Denies jaundice Neurologic Neurologic: Reports weakness Physical Exam Const alert and oriented x3 General Appearance: cooperative HEENT head/scalp atraumatic Eyes EOMs intact bilaterally and conjunctivae normal Neck supple Resp normal respiratory effort Effort and Inspection: able to speak in complete sentences GI GI Narrative: abdomen is soft to palpation with tenderness with pressure to left lower quadrant but no peritoneal signs Extremity General Extremity: Negative for calf tenderness Skin no jaundice Lab / Micro Data Result Diagrams: 01/03/22 02:08 01/03/22 02:08 Labs: Laboratory Results - last 24 hr 01/02/22 15:47: WBC 17.2 H, RBC 3.77 L, Hgb 13.8, Hct 40.1, MCV 106.4 H, MCH 36.6 H, MCHC 34.4, RDW Std Deviation 61.7 H, RDW Coeff of Pablo 15.4 H, Plt Count 338, MPV 9.8, Immature Gran % (Auto) 0.800, Neut % (Auto) 86.7 H, Lymph % (Auto) 8.0 L, [place] % (Auto) 3.7, Eos % (Auto) 0.6, Baso % (Auto) 0.2, Absolute Neuts (auto) 14.9 H, Absolute Lymphs (auto) 1.37, Nucleated RBC % 0 01/02/22 15:47: Sodium 140, Potassium 3.6, Chloride 108 H, Carbon Dioxide 21.0, Anion Gap 11, BUN 47 H, Creatinine 2.75 H, Estim Creat Clear Calc 20.73, Est GFR (MDRD) Af Amer 29 L, Est GFR (MDRD) Non-Af 24 L, BUN/Creatinine Ratio 17.1, Glucose 124 H, Calcium 9.2, Total Bilirubin 0.60, AST 56 H, ALT 65 H, Alkaline Phosphatase 76, Troponin I High Sens 30, Total Protein 7.7, Albumin 3.4, Globulin 4.3 H, Albumin/Globulin Ratio 0.8 L, Lipase 183 01/02/22 15:47: Lactic Acid 3.9 H* 01/02/22 16:53: Urine Color Yellow, Urine Clarity Sl. Cloudy, Urine pH 5.0, Ur Specific [place] 1.020, Urine Protein 100 H, Urine Glucose (UA) Normal, Urine Ketones 5 H, Urine Occult Blood 10 H, Urine Nitrite Negative, Urine Bilirubin 3 H, Urine Urobilinogen 4 H, Ur Leukocyte Esterase 100 H, Urine RBC 0 SEEN, Urine WBC 10-25 SEEN, Ur Squamous Epith Cells 0 SEEN, Urine Bacteria 1+, Urine Mucus 0 SEEN 01/02/22 17:55: PT 23.7 H, INR 2.2, APTT 32.0 01/02/22 20:29: Free T4 1.40 01/02/22 20:29: Lactic Acid 1.7 01/03/22 02:08: WBC 29.4 H, RBC 2.96 L, Hgb 10.7 L, Hct 31.6 L, MCV 106.8 H, MCH 36.1 H, MCHC 33.9, RDW Std Deviation 61.4 H, RDW Coeff of Pablo 15.7 H, Plt Count 258, MPV 10.2, Immature Gran % (Auto) 1.100 H, Neut % (Auto) 93.2 H, Lymph % (Auto) 1.2 L, [place] % (Auto) 4.3, Eos % (Auto) 0.0, Baso % (Auto) 0.2, Absolute Neuts (auto) 27.3 H, Absolute Lymphs (auto) 0.35 L, Nucleated RBC % 0, Anisocytosis 2+, Macrocytosis 3+ 01/03/22 02:08: Sodium 145, Potassium 3.7, Chloride 114 H, Carbon Dioxide 22.0, Anion Gap 9, BUN 52 H, Creatinine 2.48 H, Estim Creat Clear Calc 22.98, Est GFR (MDRD) Af Amer 32 L, Est GFR (MDRD) Non-Af 27 L, BUN/Creatinine Ratio 21.0 H, Glucose 133 H, Calcium 7.5 L, Total Bilirubin 0.60, AST 38 H, ALT 49, Alkaline Phosphatase 45, Total Protein 5.9 L, Albumin 2.5 L, Globulin 3.4, Albumin/Globulin Ratio 0.7 L 01/03/22 02:08: APTT 93.4 H* 01/03/22 09:14: APTT 74.5 H Micro: Microbiology 01/02/22 Unknown Urine, Catheterized Urine Culture - Preliminary Culture exhibits no growth. 01/02/22 16:00 Nasal Secretion SARS-CoV-2 & FLU Antigen (Rapid) - Final Rhythm Strip Rhythm Strip: Sinus Rhythm Rate: 95 Radiology Impression Abdomen/Pelvis CT 01/02/22 15:33 IMPRESSION: Acute sigmoid diverticulitis. No focal fluid collection or free air. Chronic fracture deformities of multiple thoracic and lumbar vertebral body status post kyphoplasty. Interstitial fibrotic changes. Electronically Signed: Tai Bryant MD at 17:03 EDT , Chest X-Ray 01/02/22 16:35 IMPRESSION: No acute radiographic abnormalities. Electronically Signed: Tai Bryant MD at 16:58 EDT ,
[2022-01-03] MEDS: dilTIAZem CD 120 MG Capsule PO (13:55)
[2022-01-03] MEDS: Dextrose 5%-Lactated Ringers 1,000 ML 75 ML IV (13:58)
[2022-01-03 15:55] LABS: Magnesium 2.1 mg/dL (1.6-2.6)
[2022-01-03 15:58] LABS: Partial Thromboplast Time 75.7 Seconds (24.1-36.2)
[2022-01-03] MEDS: MENTHOL 226.8 GM JAR 1 APPLIC TOPICAL ×2 (16:06→22:17)
[2022-01-03] MEDS: Amiodarone 200 MG Tablet 100 MG PO (16:06)
[2022-01-03] MEDS: Metoprolol Tartrate 25 MG Tablet 12.5 MG PO ×2 (16:06→22:22)
[2022-01-03 22:53] LABS: Partial Thromboplast Time 83.5 Seconds (24.1-36.2)
[2022-01-04] VITALS (12 sets, daily range): BP systolic 110–141; BP diastolic 67–92; PULSE 60–98; RESP 16–18; TEMP 36.6–36.8; O2SAT 92–98
[2022-01-04] MEDS: Acetaminophen 325 MG Tablet 650 MG PO ×2 (00:49→15:17)
[2022-01-04] MEDS: MENTHOL 226.8 GM JAR 1 APPLIC TOPICAL (01:40)
[2022-01-04 05:14] LABS: Absolute Lymphocyte Count 0.75 X10^3/uL (0.83-4.51); Absolute Neutrophil Count 12.2 X10^3/uL (2.0-7.7); Basophil# 0.05 X10^3/uL; Basophil% 0.4 % (0-1); Eosinophil# 0.11 X10^3/uL; Eosinophils% 0.8 % (0-5); Hematocrit 28.7 % (40-54); Hemoglobin 9.8 g/dL (13.0-16.5); Lymphocyte # 0.75 X10^3/ul (0.83-4.51); Lymphocyte % 5.3 % (19-41); Mean Corp Hgb Conc 34.1 g/dL (32-36); Mean Corpuscular Hgb 36.7 pg (27.0-32.0); Mean Corpuscular Volume 107.5 fL (80-94); Mean Platelet Vol. 9.9 fl (6.2-12.0); Monocyte# 0.88 X10^3/uL; Monocyte% 6.2 % (0-10); NRBC Flagged by Analyzer 0 % (0-5); Neutrophil # 12.19 X10^3/uL (2.7-7.7); Neutrophil % 86.3 % (47-70); Platelet Count 189 K/mm3 (150-450); RBC Distribution Width CV 15.8 % (11.6-14.6); RBC Distribution Width SD 62.1 fl (35.1-43.9); Red Blood Count 2.67 M/mm3 (4.6-6.2); White Blood Count 14.1 K/mm3 (4.4-11.0)
[2022-01-04 05:23] LABS: Partial Thromboplast Time 72.2 Seconds (24.1-36.2)
[2022-01-04 05:42] LABS: ALB/GLOB Ratio 0.7 RATIO (0.9-2.4); AST(SGOT) 46 U/L (15-37); Alanine Aminotransfer ALT/SGPT 56 U/L (16-61); Albumin, Serum 2.4 g/dL (3.2-5.0); Alkaline Phosphatase 33 U/L (45-117); Anion Gap 6 (5-15); BUN 38 mg/dL (7-18); BUN/Creat Ratio 19.7 RATIO (10-20); Calcium,Total 7.1 mg/dL (8.5-10.1); Chloride 114 mmol/L (98-107); Creatinine, Serum 1.93 mg/dL (0.70-1.30); EST Glomerular Filtration Rate 36 mL/min (>60); Est Glom Filt Rate - Afr Amer 43 mL/min (>60); Estimated Creatinine Clearance 29.53 ml/min; Globulin 3.3 g/dL (2.2-4.2); Glucose 86 mg/dL (74-106); Potassium 3.5 mmol/L (3.5-5.1); Protein, Total 5.7 g/dL (6.4-8.2); Sodium Level 144 mmol/L (136-145)
[2022-01-04] MEDS: Metoprolol Tartrate 25 MG Tablet 12.5 MG PO ×2 (09:14→21:52)
[2022-01-04] MEDS: Amiodarone 200 MG Tablet 100 MG PO ×2 (09:14→17:06)
[2022-01-04] MEDS: dilTIAZem CD 120 MG Capsule PO (09:14)
--- NOTE | 2022-01-04 09:44 | PCM.PN.HOSP ---
Subjective Subjective Follow-up on acute diverticulitis: Patient was seen and examined. He complains of mild left lower quadrant tenderness. Denied any fever or chills or on nausea or vomiting. He has been having multiple bowel movements. Objective Data Objective Data Vital Signs: Vital Signs Temp Pulse Resp BP Pulse Ox 98.2 F 98 18 123/67 H 98 01/04/22 09:11 01/04/22 09:14 01/04/22 09:11 01/04/22 09:14 01/04/22 09:11 Oxygen Delivery Method Room Air Weight: 70.4 kg Body Mass Index (BMI) 23.6 Intake & Output: Intake and Output for Last 24 Hours 01/02/22 01/03/22 01/04/22 23:59 23:59 23:59 Intake Total 2350 / 2350 3326.20 / 3326.20 72.98 / 72.98 Output Total 100 / 100 Balance 2350 / 2350 3226.20 / 3226.20 72.98 / 72.98 Lab / Micro Data Result Diagrams: 01/04/22 05:02 01/04/22 05:02 Labs: Laboratory Results - last 24 hr 01/03/22 09:14: APTT 74.5 H 01/03/22 15:35: APTT 75.7 H 01/03/22 15:35: Magnesium 2.1 01/03/22 22:25: APTT 83.5 H 01/04/22 05:02: WBC 14.1 H, RBC 2.67 L, Hgb 9.8 L, Hct 28.7 L, MCV 107.5 H, MCH 36.7 H, MCHC 34.1, RDW Std Deviation 62.1 H, RDW Coeff of Pablo 15.8 H, Plt Count 189, MPV 9.9, Immature Gran % (Auto) 1.000 H, Neut % (Auto) 86.3 H, Lymph % (Auto) 5.3 L, [place] % (Auto) 6.2, Eos % (Auto) 0.8, Baso % (Auto) 0.4, Absolute Neuts (auto) 12.2 H, Absolute Lymphs (auto) 0.75 L, Nucleated RBC % 0 01/04/22 05:02: Sodium 144, Potassium 3.5, Chloride 114 H, Carbon Dioxide 24.0, Anion Gap 6, BUN 38 H, Creatinine 1.93 H, Estim Creat Clear Calc 29.53, Est GFR (MDRD) Af Amer 43 L, Est GFR (MDRD) Non-Af 36 L, BUN/Creatinine Ratio 19.7, Glucose 86, Calcium 7.1 L, Total Bilirubin 0.70, AST 46 H, ALT 56, Alkaline Phosphatase 33 L, Total Protein 5.7 L, Albumin 2.4 L, Globulin 3.3, Albumin/Globulin Ratio 0.7 L 01/04/22 05:02: APTT 72.2 H Micro: Microbiology 01/02/22 Unknown Urine, Catheterized Urine Culture - Final Culture exhibits no growth. 01/02/22 16:00 Nasal Secretion SARS-CoV-2 & FLU Antigen (Rapid) - Final Rhythm Strip Rhythm Strip: Sinus Rhythm Rate: 95 Physical Exam Narrative General: Alert, Oriented x3, Cooperative HEENT: Atraumatic, PERRLA, EOMI, Normocephalic Oral: Moist Mucosa Neck: Supple Lungs: Normal air movement, Diminished Cardiovascular: Regular rate, Regular Rhythm, Normal S1, Normal S2, No murmurs Abdomen: Bowel Sounds Present, Soft, left lower quadrant tenderness without guarding, Non-Distended, No Hepato-splenomegaly Extremities: No edema Skin: No rashes Neurological: Cranial nerves II-XII grossly intact, Neuro grossly intact Psych/Mental Status: Normal Affect, Appropriate Assessment & Plan Assessment/Plan (1) Diverticulitis: (2) Sepsis: (3) Acute kidney injury superimposed on chronic kidney disease: PLAN: 1. Sepsis due to acute diverticulitis, slowly improving WBC count is 14.1, continue on IV Zosyn Continue on clear liquid diet, general surgery following 2. FE on CKD stage IIIb, slowly improving, creatinine today is 1.93, down from 2.4 Baseline creatinine between 2.0-2.2 Continue to trend 3. Chronic atrial fibrillation, history of radiofrequency ablation, rate controlled, continue amiodarone, Cardizem, metoprolol Patient does not need bridging with IV heparin on account of atrial fibtrillation; will discontinue heparin Will resume Coumadin at discharge 4. Hypertension, controlled, continue on metoprolol, hydralazine and cardizem. Will resume cardizem. 5. Subclinical hypothyroidism, needs to be followed up in the outpatient 6. DVT PPx- Heparin SC Charges/Coding Visit Charges Inpatient E&M: 78533 Subs Hosp L2
[2022-01-04] MEDS: Loratadine 10 MG Tablet PO (10:48)
[2022-01-04 11:17] LABS: Partial Thromboplast Time 69.9 Seconds (24.1-36.2)
--- NOTE | 2022-01-04 11:17 | CASEMGMT ---
RADHA PORTER assessment: Face to Face with patient for initial transition planning/care coordination assessment. RADHA PORTER introduced self and role at [facility], pt voices understanding and consents to assessment. Pt is sitting up in chair in no distress on room air. Pt is A/Ox4 and answers all questions appropriately. Care providers, pharmacy, and demographics verified. Presentation: N/V/D starting today-pt c/o SOB as well Admitting dx: Sepsis d/t diverticulitis PCP: Amor Specialists: Jesse cardio [facility]acy: [facility] Insurance: MCR A/B, [employer] Prescription Benefit: [employer] Living Will/HPOA: Pt has LW/HPOA and is aware that they are not on file at [facility]. Pt states his sister, Neelima Durant, is HPOA. LNOK: Neelima Durant, sister/HPOA; Olivia Dunn, sister Living Arrangements: Pt lives alone on main level of home and states no concerns at home. Pt is independent with ADL's. Transportation: Pt drives self and states no transportation concerns. DME/HHC: Pt has a cane, grab bars, and shower chair and declines need for any further DME. Pt states no hx of HHC or SNF in the past. Pt states no concerns with going home at time of discharge. Pt is retired. Pt does not smoke cigarettes or drink ETOH. Pt states no further concerns/needs. CM to follow for any further discharge planning/needs. Advised pt to ask for CM if any further questions/concerns/needs arise, voices understanding. Pt Goal: Home Plan[place] RADHA PORTER
--- NOTE | 2022-01-04 11:53 | PCM.PN.SRG ---
Subjective Subjective patient states pain is about a 2 out of 10 this morning passing flatus and with multiple loose bowel movements notes blood in stools - he had colonoscopy [place] [address] Ridley at the time he was noted to have old blood in diverticula - this is probably diverticular bleeding and doubtful any malignancy Objective Data Objective Data Vital Signs: Vital Signs Temp Pulse Resp BP Pulse Ox 98.2 F 98 18 123/67 H 98 01/04/22 09:11 01/04/22 09:14 01/04/22 09:11 01/04/22 09:14 01/04/22 09:11 Oxygen Delivery Method Room Air Weight: 70.4 kg Body Mass Index (BMI) 23.6 Intake & Output: Intake and Output for Last 24 Hours 01/02/22 01/03/22 01/04/22 23:59 23:59 23:59 Intake Total 2350 / 2350 3326.20 / 3326.20 184.81 / 184.81 Output Total 100 / 100 Balance 2350 / 2350 3226.20 / 3226.20 184.81 / 184.81 Lab / Micro Data Result Diagrams: 01/04/22 05:02 01/04/22 05:02 Labs: Laboratory Results - last 24 hr 01/03/22 15:35: APTT 75.7 H 01/03/22 15:35: Magnesium 2.1 01/03/22 22:25: APTT 83.5 H 01/04/22 05:02: WBC 14.1 H, RBC 2.67 L, Hgb 9.8 L, Hct 28.7 L, MCV 107.5 H, MCH 36.7 H, MCHC 34.1, RDW Std Deviation 62.1 H, RDW Coeff of Pablo 15.8 H, Plt Count 189, MPV 9.9, Immature Gran % (Auto) 1.000 H, Neut % (Auto) 86.3 H, Lymph % (Auto) 5.3 L, [place] % (Auto) 6.2, Eos % (Auto) 0.8, Baso % (Auto) 0.4, Absolute Neuts (auto) 12.2 H, Absolute Lymphs (auto) 0.75 L, Nucleated RBC % 0 01/04/22 05:02: Sodium 144, Potassium 3.5, Chloride 114 H, Carbon Dioxide 24.0, Anion Gap 6, BUN 38 H, Creatinine 1.93 H, Estim Creat Clear Calc 29.53, Est GFR (MDRD) Af Amer 43 L, Est GFR (MDRD) Non-Af 36 L, BUN/Creatinine Ratio 19.7, Glucose 86, Calcium 7.1 L, Total Bilirubin 0.70, AST 46 H, ALT 56, Alkaline Phosphatase 33 L, Total Protein 5.7 L, Albumin 2.4 L, Globulin 3.3, Albumin/Globulin Ratio 0.7 L 01/04/22 05:02: APTT 72.2 H 01/04/22 10:55: APTT 69.9 H Micro: Microbiology 01/02/22 Unknown Urine, Catheterized Urine Culture - Final Culture exhibits no growth. 01/02/22 16:00 Nasal Secretion SARS-CoV-2 & FLU Antigen (Rapid) - Final Rhythm Strip Rhythm Strip: Sinus Rhythm Rate: 95 Physical Exam Const alert and oriented x3 General Appearance: cooperative HEENT head/scalp atraumatic Neck supple Resp normal respiratory effort Effort and Inspection: able to speak in complete sentences GI GI Narrative: abdomen is soft and benign, minimal tenderness in left lower quadrant much improved from yesterday Assessment & Plan Assessment/Plan (1) Acute diverticulitis of intestine: PLAN: clinically resolving diverticulitis I would recommend an additional night of IV antibiotics as patient's WBC is 14, albeit much improved from yesterday (also given his multiple medical morbidities) continue clear liquid diet, add ensure clears probably ready for discharge tomorrow
--- NOTE | 2022-01-04 14:21 | ECHOD_ITS ---
Reason For Study: Dyspnea/SOB Procedure This was a 2D Doppler, Color Flow transthoracic echocardiogram. Exam performed portable in patient room. Left Ventricle Normal LV size. Left ventricular systolic function is normal. The estimated ejection fraction is 55 %. No regional wall motion abnormalities noted. Right Ventricle Normal RV size. Normal systolic function. Atria The left atrium is moderately enlarged. The right atrium is mildly enlarged. Mitral Valve Normal mitral valve. Moderate (2+) eccentric mitral valve insufficiency. Tricuspid Valve Normal tricuspid valve. Moderate (2+) tricuspid valve insufficiency. Pulmonary artery systolic pressure is 66 mmHg. Moderate pulmonary hypertension. Aortic Valve Normal aortic valve. Trisinus/trileaflet aortic valve. Mild (1+) aortic valve insufficiency. Pulmonic Valve Normal pulmonic valve. Great Vessels Calcified aortic root. Mildly dilated aortic root. The pulmonary artery is normal size. Inferior vena cava collapse with sniff. Pericardium/Pleural No pericardial effusion. MMode/2D Measurements & Calculations LVIDd: 5.6 cm IVSd: 1.0 cm Ao root diam: 4.1 cm LVIDs: 4.1 cm LVPWd: 1.1 cm RVDd: 4.0 cm FS: 26.6 % LAV(MOD-bp): 136.0 ml LVAd ap4: 29.3 cm2 SV(MOD-sp4): 47.5 ml LAV(MOD-bp) Indexed: 73.4 ml/m2 LVLd ap4: 7.7 cm LAV(MOD-sp2): 140.4 ml EDV(MOD-sp4): 93.3 ml LAV(MOD-sp4): 129.3 ml EDV(sp4-el): 95.3 ml LVAs ap4: 19.6 cm2 LVLs ap4: 7.0 cm ESV(MOD-sp4): 45.8 ml ESV(sp4-el): 46.3 ml EF(MOD-sp4): 50.9 % EF(sp4-el): 51.4 % SV(sp4-el): 49.0 ml LA A4 area: 34.4 cm2 LA dimension(2D): 5.7 cm RA A4 area: 22.4 cm2 Doppler Measurements & Calculations MV E max andrew: 112.2 cm/sec Lat Peak E' Andrew: 15.6 cm/sec Med Peak E' Andrew: 6.3 cm/sec MV A max andrew: 56.1 cm/sec E/E' lat: 7.2 E/E' med: 17.9 MV E/A: 2.0 Ao V2 max: 112.6 cm/sec AI max andrew: 385.6 cm/sec LV V1 max: 94.2 cm/sec Ao max P.1 mmHg AI max P.8 mmHg LV V1 max P.5 mmHg Ao V2 mean: 82.7 cm/sec Ao mean P.0 mmHg AI dec slope: 191.7 cm/sec2 Ao V2 VTI: 20.1 cm AI P1/2t: 589.1 msec PA V2 max: 73.3 cm/sec TR max andrew: 393.6 cm/sec TR max P.0 mmHg ECHO/Echo Complete Interpretation Summary Normal LV size. Left ventricular systolic function is normal. The estimated ejection fraction is 55 %. Mild (1+) aortic valve insufficiency. Pulmonary artery systolic pressure is 66 mmHg. Mildly dilated aortic root. Moderate pulmonary hypertension. The left atrium is moderately enlarged. Ordering Physician: Trisha Duran Referring Physician: César Chinchilla Performed By: Vita Grace, KAT, RVT
[2022-01-04] MEDS: Heparin Injection (Vial) 5,000 UNIT/ML VIAL 5000 UNIT SC ×2 (14:23→21:52)
[2022-01-04] MEDS: Calcium Carbonate 500 MG Tablet 1000 MG PO (22:20)
[2022-01-04] MEDS: guaiFENesin 10 ML UDC (200MG/10ML) PO (22:20)
[2022-01-05] VITALS (16 sets, daily range): BP systolic 121–147; BP diastolic 78–96; PULSE 83–98; RESP 16–20; TEMP 36.4–37.4; O2SAT 90–95
[2022-01-05] MEDS: Calcium Carbonate 500 MG Tablet 1000 MG PO (03:45)
[2022-01-05] MEDS: Heparin Injection (Vial) 5,000 UNIT/ML VIAL 5000 UNIT SC ×3 (05:17→22:34)
[2022-01-05 06:09] LABS: Absolute Lymphocyte Count 0.59 X10^3/uL (0.83-4.51); Absolute Neutrophil Count 11.2 X10^3/uL (2.0-7.7); Basophil# 0.04 X10^3/uL; Basophil% 0.3 % (0-1); Eosinophil# 0.09 X10^3/uL; Eosinophils% 0.7 % (0-5); Hematocrit 30.6 % (40-54); Hemoglobin 10.4 g/dL (13.0-16.5); Lymphocyte # 0.59 X10^3/ul (0.83-4.51); Lymphocyte % 4.6 % (19-41); Mean Corpuscular Hgb 35.9 pg (27.0-32.0); Mean Corpuscular Volume 105.5 fL (80-94); Mean Platelet Vol. 9.9 fl (6.2-12.0); Monocyte# 0.69 X10^3/uL; Monocyte% 5.4 % (0-10); NRBC Flagged by Analyzer 0 % (0-5); Neutrophil # 11.22 X10^3/uL (2.7-7.7); Neutrophil % 88.2 % (47-70); POSITIVE DIFFERENTIAL YES; Platelet Count 216 K/mm3 (150-450); RBC Distribution Width CV 15.7 % (11.6-14.6); RBC Distribution Width SD 61.9 fl (35.1-43.9); White Blood Count 12.7 K/mm3 (4.4-11.0)
[2022-01-05 06:15] LABS: Differential Indicated SCAN CRITERIA MET
[2022-01-05 06:19] LABS: Partial Thromboplast Time 47.2 Seconds (24.1-36.2)
[2022-01-05 06:32] LABS: Differential Comment SCANNED
[2022-01-05 06:46] LABS: ALB/GLOB Ratio 0.8 RATIO (0.9-2.4); AST(SGOT) 41 U/L (15-37); Alanine Aminotransfer ALT/SGPT 53 U/L (16-61); Albumin, Serum 2.7 g/dL (3.2-5.0); Alkaline Phosphatase 36 U/L (45-117); Anion Gap 6 (5-15); BUN 24 mg/dL (7-18); Calcium,Total 7.4 mg/dL (8.5-10.1); Chloride 111 mmol/L (98-107); Creatinine, Serum 1.71 mg/dL (0.70-1.30); EST Glomerular Filtration Rate 41 mL/min (>60); Est Glom Filt Rate - Afr Amer 50 mL/min (>60); Estimated Creatinine Clearance 33.33 ml/min; Globulin 3.4 g/dL (2.2-4.2); Glucose 95 mg/dL (74-106); Potassium 3.4 mmol/L (3.5-5.1); Protein, Total 6.1 g/dL (6.4-8.2); Sodium Level 140 mmol/L (136-145)
[2022-01-05 08:32] LABS: Thyroid Stim Hormone (TSH) 4.19 uIU/mL (0.358-3.74)
[2022-01-05] MEDS: 0.9% Saline Lock 10 ML Syringe IV ×3 (08:59→22:17)
[2022-01-05] MEDS: Ondansetron 4 MG/2 ML Vial IV (09:00)
--- NOTE | 2022-01-05 10:28 | DCINST_ITS ---
Discharge Instructions Follow Up Care Test Results: Test results from this visit will be discussed in further detail at your follow-up appointment, if applicable. Discharge Plan Admission Admit Date/Time: 01/02/22 17:34 Primary Reason for Your Visit: Acute sigmoid diverticulitis Attending Provider: Trisha Duran Primary Care Provider: César Chinchilla Consulting Providers: Roxanne Senior ; Adela Farley Instructions Additional Instructions / Restrictions: Complete your antibiotics as scheduled. Take note of changes to your medications. Follow-up with your primary care doctor and general surgery in the outpatient. You will need repeat blood work within a week to check on your kidney function. Discharge Orders/Prescriptions Prescriptions: No Action finasteride [Proscar] 5 mg tablet 5 mg PO DAILY RF: 0 warfarin 4 mg tablet 4 mg PO .COMPLEX RF: 0 lidocaine 5 % adhesive patch,medicated 1 patch topical DAILY RF: 0 pantoprazole 40 mg tablet,delayed release (DR/EC) 40 mg PO DAILY RF: 0 vitamin B complex no.10-FA 400 mcg tablet extended release 1 tab PO DAILY RF: 0 metoprolol tartrate 25 mg tablet 12.5 mg PO BID RF: 0 fluticasone propionate 50 mcg/actuation spray,suspension 1 spray intranasal BID PRN (Reason: Congestion) RF: 0 tamsulosin 0.4 mg capsule 0.4 mg PO DAILY RF: 0 vitamin a tyepcopwg-L-sxekxspm 25,000 unit (15K-10K unit) tablet 1 tab PO DAILY RF: 0 hydralazine 25 mg tablet 12.5 mg PO TID RF: 0 Prolia 60 MG/ML syringe 60 mg SQ .[id number] RF: 0 calcium citrate 200 mg (950 mg) tablet 200 mg PO BID RF: 0 ipratropium bromide 21 mcg (0.03 %) [place],Non-Aerosol 2 spray INTRANASAL PRN PRN (Reason: SOB) RF: 0 Osteo Bi-Flex Triple Strength 750 mg-644 mg- 30 mg-1 mg Tablet 2 tab PO DAILY RF: 0 nitroglycerin 0.4 mg tablet, sublingual 0.4 mg SL DAILY RF: 0 meclizine 25 mg Tablet 25 mg PO TID PRN PRN (Reason: Dizziness) Qty: 30 RF: 0 warfarin 2 mg tablet 2 mg PO .COMPLEX RF: 0 amiodarone 200 mg tablet 100 mg PO BID RF: 0 furosemide 40 mg tablet 40 mg PO .PRN Qty: 90 RF: 3 lisinopril 10 mg tablet 10 mg PO DAILY RF: 0 diltiazem HCl 120 mg capsule,extended release 24hr 120 mg PO DAILY Qty: 90 RF: 3 Referrals / Follow Up: César Chinchilla MD [Primary Care Provider] - In 1 Week Roxanne Senior MD [STAFF PHYSICIAN] - Within 1 Week Disposition Discharge Orders: Discharge Patient (Routine); Ordered 01/05/22 Ordered By: Dr. Trisha Duran
--- NOTE | 2022-01-05 10:34 | RAD_ITS ---
STUDY: X-RAY - ABDOMEN/PELVIS REASON FOR EXAM: Male, 81 years old. Persistent vomiting TECHNIQUE: AP supine and upright views of the abdomen and pelvis. COMPARISON: Comparison is made with prior study 12/17/2014. FINDINGS: Increased markings at the lung bases with blunting of the right costophrenic angle. There is an unremarkable bowel gas pattern. There is no demonstrated free abdominal air. The visualized liver, spleen and kidneys are grossly normal in size and morphology. Normal soft tissue structures. There are diffuse degenerative changes of the visualized lumbar spine. The patient is status post laminectomy and vertebroplasty of the T12 and L1 vertebrae. RAD/Abd Decub and/or Erect(Portabl IMPRESSION: Increased markings at the lung bases. Electronically Signed: Wilfred Milligan MD at 12:35 EDT ,
--- NOTE | 2022-01-05 10:34 | RAD_ITS ---
STUDY: X-RAY CHEST REASON FOR EXAM: Male, 81 years old. Sob TECHNIQUE: Single AP portable view of the chest. COMPARISON: Comparison is made with prior study 01/02/2022. FINDINGS: EKG electrodes are seen. Progressive bibasilar infiltrates worse on the right side. Blunting of the right costophrenic angle. There is mild cardiac enlargement. A loop recorder device is seen. Normal mediastinum and nasrin. Normal visualized pulmonary arteries. There is atherosclerotic tortuosity of the aortic arch and descending thoracic aorta. There are diffuse degenerative changes of the visualized thoracic spine. Prior vertebral plasty. There is degenerative osteoarthritis of the bilateral shoulders. There is no demonstrated abnormality of the visualized soft tissue structures of the upper abdomen. RAD/Chest 1 View (Portable) IMPRESSION: Progressive bibasilar infiltrates more prominent at the right lung base. Blunting of the right costophrenic angle. Electronically Signed: Wilfred Milligan MD at 12:22 EDT ,
--- NOTE | 2022-01-05 10:37 | PN.HOSP_ITS ---
Subjective Subjective Follow-up on acute diverticulitis: Patient was seen and examined. Patient had few stools of vomiting this morning. He said he felt like he was choking on his food. He has had multiple loose stools. Objective Data Objective Data Vital Signs: Vital Signs Temp Pulse Resp BP Pulse Ox 97.9 F 86 18 147/87 H 94 01/05/22 03:50 01/05/22 07:01 01/05/22 03:50 01/05/22 03:50 01/05/22 03:50 Oxygen Flow Rate (L/min) 3 Oxygen Delivery Method Nasal Cannula Weight: 70.4 kg Body Mass Index (BMI) 23.6 Intake & Output: Intake and Output for Last 24 Hours 01/03/22 01/04/22 01/05/22 23:59 23:59 23:59 Intake Total 3326.20 / 3326.20 506.16 / 506.16 600 / 600 Output Total 100 / 100 Balance 3226.20 / 3226.20 506.16 / 506.16 600 / 600 Lab / Micro Data Result Diagrams: 01/05/22 05:58 01/05/22 05:58 Labs: Laboratory Results - last 24 hr 01/04/22 10:55: APTT 69.9 H 01/05/22 05:58: APTT 47.2 H 01/05/22 05:58: WBC 12.7 H, RBC 2.90 L, Hgb 10.4 L, Hct 30.6 L, MCV 105.5 H, MCH 35.9 H, MCHC 34.0, RDW Std Deviation 61.9 H, RDW Coeff of Pablo 15.7 H, Plt Count 216, MPV 9.9, Immature Gran % (Auto) 0.800, Neut % (Auto) 88.2 H, Lymph % (Auto) 4.6 L, [place] % (Auto) 5.4, Eos % (Auto) 0.7, Baso % (Auto) 0.3, Absolute Neuts (auto) 11.2 H, Absolute Lymphs (auto) 0.59 L, Nucleated RBC % 0, Differential Comment SCANNED 01/05/22 05:58: Sodium 140, Potassium 3.4 L, Chloride 111 H, Carbon Dioxide 23.0, Anion Gap 6, BUN 24 H, Creatinine 1.71 H, Estim Creat Clear Calc 33.33, Est GFR (MDRD) Af Amer 50 L, Est GFR (MDRD) Non-Af 41 L, BUN/Creatinine Ratio 14.0, Glucose 95, Calcium 7.4 L, Total Bilirubin 0.90, AST 41 H, ALT 53, Al kaline Phosphatase 36 L, Total Protein 6.1 L, Albumin 2.7 L, Globulin 3.4, Albumin/Globulin Ratio 0.8 L 01/05/22 05:58: Folate 16.10, TSH 4.19 H Micro: Microbiology 01/02/22 Unknown Urine, Catheterized Urine Culture - Final Culture exhibits no growth. 01/02/22 16:00 Nasal Secretion SARS-CoV-2 & FLU Antigen (Rapid) - Final Radiography Diagnostic Testing: Radiology Impression Echocardiogram 01/04/22 14:21 Interpretation Summary Normal LV size. Left ventricular systolic function is normal. The estimated ejection fraction is 55 %. Mild (1+) aortic valve insufficiency. Pulmonary artery systolic pressure is 66 mmHg. Mildly dilated aortic root. Moderate pulmonary hypertension. The left atrium is moderately enlarged. Ordering Physician: Trisha Duran Referring Physician: César Chinchilla Performed By: Vita Grace, KAT, RVT Rhythm Strip Rhythm Strip: Sinus Rhythm Rate: 95 Physical Exam Narrative General: Alert, Oriented x3, Cooperative HEENT: Atraumatic, PERRLA, EOMI, Normocephalic Oral: Moist Mucosa Neck: Supple Lungs: Normal air movement, Diminished Cardiovascular: Regular rate, Regular Rhythm, Normal S1, Normal S2, No murmurs Abdomen: Bowel Sounds Present, Soft, left lower quadrant tenderness without guarding, Non-Distended, No Hepato-splenomegaly Extremities: No edema Skin: No rashes Neurological: Cranial nerves II-XII grossly intact, Neuro grossly intact Psych/Mental Status: Normal Affect, Appropriate Assessment & Plan Assessment/Plan (1) Diverticulitis: (2) Sepsis: (3) Acute kidney injury superimposed on chronic kidney disease: PLAN: 1. Episode of vomiting, choking, concerning for dysphagia Speech therapy to evaluate 2. Hypoxia, probable aspiration pneumonitis Patient currently on 3 L of oxygen We will check a chest x-ray Continue on IV Zosyn, wean off oxygen 3. Sepsis due to acute diverticulitis, slowly improving WBC count is 12.7, continue on IV Zosyn Continue on clear liquid diet, general surgery following 4. Hypokalemia, replace, recheck in a.m. 5. 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 Chronic atrial fibrillation, history of radiofrequency ablation, rate controlled, continue amiodarone, Cardizem, metoprolol Patient does not need bridging with IV heparin on account of atrial fibtrill ation; will discontinue heparin Will resume Coumadin at discharge 7. Hypertension, controlled, continue on metoprolol, hydralazine and cardizem. Will resume cardizem. 8. Subclinical hypothyroidism, needs to be followed up in the outpatient 9. DVT PPx- Heparin SC Charges/Coding Visit Charges Inpatient E&M: 02689 Subs Hosp L2
[2022-01-05] MEDS: Amiodarone 200 MG Tablet 100 MG PO ×2 (10:53→17:42)
[2022-01-05] MEDS: dilTIAZem CD 120 MG Capsule PO (10:53)
[2022-01-05] MEDS: Loratadine 10 MG Tablet PO (10:53)
[2022-01-05] MEDS: Potassium Chloride Oral Tablet 20 MEQ 40 MEQ PO (10:53)
[2022-01-05] MEDS: Metoprolol Tartrate 25 MG Tablet 12.5 MG PO ×2 (10:54→22:15)
[2022-01-05 12:01] LABS: Vitamin B12 818 pg/mL (211-911)
--- NOTE | 2022-01-05 12:09 | PN.SURG_ITS ---
Subjective Subjective patient had emesis this morning, but it seems from patient's description this may have been due to choking he denies abdominal pain passing flatus and having loose bowel movements Objective Data Objective Data Vital Signs: Vital Signs Temp Pulse Resp BP Pulse Ox 97.6 F L 89 18 142/94 H 95 01/05/22 11:50 01/05/22 11:50 01/05/22 11:50 01/05/22 11:50 01/05/22 11:50 Oxygen Flow Rate (L/min) 4 Oxygen Delivery Method Nasal Cannula Weight: 70.4 kg Body Mass Index (BMI) 23.6 Intake & Output: Intake and Output for Last 24 Hours 01/03/22 01/04/22 01/05/22 23:59 23:59 23:59 Intake Total 3326.20 / 3326.20 506.16 / 506.16 600 / 600 Output Total 100 / 100 Balance 3226.20 / 3226.20 506.16 / 506.16 600 / 600 Lab / Micro Data Result Diagrams: 01/05/22 05:58 01/05/22 05:58 Labs: Laboratory Results - last 24 hr 01/05/22 05:58: APTT 47.2 H 01/05/22 05:58: WBC 12.7 H, RBC 2.90 L, Hgb 10.4 L, Hct 30.6 L, MCV 105.5 H, MCH 35.9 H, MCHC 34.0, RDW Std Deviation 61.9 H, RDW Coeff of Pablo 15.7 H, Plt Count 216, MPV 9.9, Immature Gran % (Auto) 0.800, Neut % (Auto) 88.2 H, Lymph % (Auto) 4.6 L, [place] % (Auto) 5.4, Eos % (Auto) 0.7, Baso % (Auto) 0.3, Absolute Neuts (auto) 11.2 H, Absolute Lymphs (auto) 0.59 L, Nucleated RBC % 0, Differential Comment SCANNED 01/05/22 05:58: Sodium 140, Potassium 3.4 L, Chloride 111 H, Carbon Dioxide 23.0, Anion Gap 6, BUN 24 H, Creatinine 1.71 H, Estim Creat Clear Calc 33.33, Est GFR (MDRD) Af Amer 50 L, Est GFR (MDRD) Non-Af 41 L, BUN/Creatinine Ratio 14.0, Glucose 95, Calcium 7.4 L, Total Bilirubin 0.90, AST 41 H, ALT 53, Alkaline Phosphatase 36 L, Total Protein 6.1 L, Albumin 2.7 L, Globulin 3.4, Albumin/Globulin Ratio 0.8 L 01/05/22 05:58: Folate 16.10, TSH 4.19 H 01/05/22 11:00: Vitamin B12 818 Micro: Microbiology 01/02/22 Unknown Urine, Catheterized Urine Culture - Final Culture exhibits no growth. 01/02/22 16:00 Nasal Secretion SARS-CoV-2 & FLU Antigen (Rapid) - Final Radiography Diagnostic Testing: Radiology Impression Echocardiogram 01/04/22 14:21 Interpretation Summary Normal LV size. Left ventricular systolic function is normal. The estimated ejection fraction is 55 %. Mild (1+) aortic valve insufficiency. Pulmonary artery systolic pressure is 66 mmHg. Mildly dilated aortic root. Moderate pulmonary hypertension. The left atrium is moderately enlarged. Ordering Physician: Trisha Duran Referring Physician: César Chinchilla Performed By: Vita Grace, KAT, RVT Rhythm Strip Rhythm Strip: Sinus Rhythm Rate: 95 Physical Exam Const alert and oriented x3 General Appearance: cooperative Neck supple Resp normal respiratory effort Effort and Inspection: able to speak in complete sentences GI GI Narrative: abdomen is soft and benign Assessment & Plan Assessment/Plan (1) Acute diverticulitis of intestine: PLAN: patient has no abdominal pain, having evidence of bowel function, WBC is normalizing (trending down) patient will be undergoing swallowing studies I will sign off case
[2022-01-05] MEDS: Ipratropium/Albuterol Sulfate 3 ML AMPUL.NEB INHALATION ×2 (16:34→19:04)
--- NOTE | 2022-01-05 18:28 | NURSING ---
Reviewed charting with Rashaun Montesinos RN
[2022-01-05] MEDS: MENTHOL 226.8 GM JAR 1 APPLIC TOPICAL (22:34)
[2022-01-06] VITALS (16 sets, daily range): BP systolic 117–141; BP diastolic 73–89; PULSE 73–107; RESP 16–22; TEMP 36.2–36.9; O2SAT 88–95
--- NOTE | 2022-01-06 05:19 | RAD_ITS ---
INDICATION: SOB EXAMINATION/TECHNIQUE: X-RAY - XR Chest 1 View COMPARISON: 01/05/2022 FINDINGS: LIFE-SUPPORT AND LINES: 1. 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 Postprocedural changes of prior vertebroplasty is again noted. 2. No pneumothorax. HEART AND VESSELS: Cardiac silhouette is unchanged, no evidence congestive failure. LUNGS AND PLEURAL SPACES: Persistent and worsening bibasilar atelectasis particularly at the RIGHT base. There does appear to be development of small bilateral effusions and blunting the CP angles. No pulmonary mass is noted. MEDIASTINUM AND HILAR REGIONS: No masses adenopathy noted. No areas of calcification. Visualized upper airway is normal in position. BONY ELEMENTS: No acute bony changes noted. RAD/Chest 1 View (Portable) IMPRESSION: 1. Persistent and moderately worsened bibasilar atelectasis greater on the RIGHT than LEFT. Developing small bilateral effusions noted. 2. No evidence congestive failure. Electronically Signed: Balbir Latham MD at 17:13 EDT ,
[2022-01-06] MEDS: Heparin Injection (Vial) 5,000 UNIT/ML VIAL 5000 UNIT SC ×3 (05:57→22:14)
[2022-01-06] MEDS: Ipratropium/Albuterol Sulfate 3 ML AMPUL.NEB INHALATION ×3 (06:28→18:25)
[2022-01-06] MEDS: Amiodarone 200 MG Tablet 100 MG PO ×2 (10:03→16:10)
[2022-01-06] MEDS: dilTIAZem CD 120 MG Capsule PO (10:03)
[2022-01-06] MEDS: Metoprolol Tartrate 25 MG Tablet 12.5 MG PO ×2 (10:03→22:11)
[2022-01-06] MEDS: Loratadine 10 MG Tablet PO (10:03)
[2022-01-06 10:47] LABS: Absolute Lymphocyte Count 0.44 X10^3/uL (0.83-4.51); Absolute Neutrophil Count 10.7 X10^3/uL (2.0-7.7); Basophil# 0.04 X10^3/uL; Basophil% 0.3 % (0-1); Eosinophil# 0.02 X10^3/uL; Eosinophils% 0.2 % (0-5); Hematocrit 31.6 % (40-54); Hemoglobin 10.5 g/dL (13.0-16.5); Lymphocyte # 0.44 X10^3/ul (0.83-4.51); Lymphocyte % 3.6 % (19-41); Mean Corp Hgb Conc 33.2 g/dL (32-36); Mean Corpuscular Hgb 35.6 pg (27.0-32.0); Mean Corpuscular Volume 107.1 fL (80-94); Mean Platelet Vol. 9.9 fl (6.2-12.0); Monocyte# 0.94 X10^3/uL; Monocyte% 7.7 % (0-10); NRBC Flagged by Analyzer 0.2 % (0-5); Neutrophil # 10.67 X10^3/uL (2.7-7.7); Neutrophil % 87.1 % (47-70); POSITIVE DIFFERENTIAL YES; Platelet Count 204 K/mm3 (150-450); RBC Distribution Width CV 15.7 % (11.6-14.6); RBC Distribution Width SD 62.2 fl (35.1-43.9); Red Blood Count 2.95 M/mm3 (4.6-6.2); White Blood Count 12.3 K/mm3 (4.4-11.0)
[2022-01-06 10:50] LABS: Differential Indicated SCAN CRITERIA MET
[2022-01-06 11:19] LABS: ALB/GLOB Ratio 0.7 RATIO (0.9-2.4); AST(SGOT) 32 U/L (15-37); Alanine Aminotransfer ALT/SGPT 52 U/L (16-61); Albumin, Serum 2.7 g/dL (3.2-5.0); Alkaline Phosphatase 38 U/L (45-117); Anion Gap 7 (5-15); BUN 19 mg/dL (7-18); BUN/Creat Ratio 11.1 RATIO (10-20); Calcium,Total 7.7 mg/dL (8.5-10.1); Chloride 112 mmol/L (98-107); Creatinine, Serum 1.71 mg/dL (0.70-1.30); EST Glomerular Filtration Rate 41 mL/min (>60); Est Glom Filt Rate - Afr Amer 50 mL/min (>60); Estimated Creatinine Clearance 33.33 ml/min; Globulin 3.8 g/dL (2.2-4.2); Glucose 127 mg/dL (74-106); Magnesium 2.2 mg/dL (1.6-2.6); Potassium 3.9 mmol/L (3.5-5.1); Protein, Total 6.5 g/dL (6.4-8.2); Sodium Level 141 mmol/L (136-145)
[2022-01-06 11:25] LABS: Platelet Estimate ADEQUATE (ADEQ); Red Cell Morphology NORM C+C NORMAL (NORM C&C)
--- NOTE | 2022-01-06 12:37 | PN.HOSP_ITS ---
Subjective Subjective Follow-up on acute diverticulitis: Patient was seen and examined. He is on 4L oxygen. He is currently on regular te xtures, thin liquids. He denied any more multiple loose stools. Objective Data Objective Data Vital Signs: Vital Signs Temp Pulse Resp BP Pulse Ox 97.1 F L 85 20 H 137/82 H 92 01/06/22 09:59 01/06/22 10:47 01/06/22 10:47 01/06/22 10:03 01/06/22 09:59 Oxygen Flow Rate (L/min) 4 Oxygen Delivery Method Nasal Cannula Weight: 70.4 kg Body Mass Index (BMI) 23.6 Intake & Output: Intake and Output for Last 24 Hours 01/04/22 01/05/22 01/06/22 23:59 23:59 23:59 Intake Total 506.16 / 506.16 1390 / 1390 100 / 100 Output Total 320 / 320 Balance 506.16 / 506.16 1390 / 1270 -220 / -220 Lab / Micro Data Result Diagrams: 01/06/22 10:39 01/06/22 10:39 Labs: Laboratory Results - last 24 hr 01/06/22 10:39: WBC 12.3 H, RBC 2.95 L, Hgb 10.5 L, Hct 31.6 L, MCV 107.1 H, MCH 35.6 H, MCHC 33.2, RDW Std Deviation 62.2 H, RDW Coeff of Pablo 15.7 H, Plt Count 204, MPV 9.9, Immature Gran % (Auto) 1.100 H, Neut % (Auto) 87.1 H, Lymph % (Auto) 3.6 L, [place] % (Auto) 7.7, Eos % (Auto) 0.2, Baso % (Auto) 0.3, Absolute Neuts (auto) 10.7 H, Absolute Lymphs (auto) 0.44 L, Nucleated RBC % 0.2, Differe ntial Comment , Platelet Estimate ADEQUATE, RBC Morphology NORM C+C 01/06/22 10:39: Sodium 141, Potassium 3.9, Chloride 112 H, Carbon Dioxide 22.0, Anion Gap 7, BUN 19 H, Creatinine 1.71 H, Estim Creat Clear Calc 33.33, Est GFR (MDRD) Af Amer 50 L, Est GFR (MDRD) Non-Af 41 L, BUN/Creatinine Ratio 11.1, Glucose 127 H, Calcium 7.7 L, Magnesium 2.2, Total Bilirubin 0.90, AST 32, ALT 52, Alkaline Phosphatase 38 L, Total Protein 6.5, Albumin 2.7 L, Globulin 3.8, Albumin/Globulin Ratio 0.7 L Micro: Microbiology 01/02/22 Unknown Urine, Catheterized Urine Culture - Final Culture exhibits no growth. 01/02/22 16:00 Nasal Secretion SARS-CoV-2 & FLU Antigen (Rapid) - Final Rhythm Strip Rhythm Strip: Sinus Rhythm Rate: 95 Physical Exam Narrative General: Alert, Oriented x3, Cooperative HEENT: Atraumatic, PERRLA, EOMI, Normocephalic Oral: Moist Mucosa Neck: Supple Lungs: Normal air movement, Diminished Cardiovascular: Regular rate, Regular Rhythm, Normal S1, Normal S2, No murmurs Abdomen: Bowel Sounds Present, Soft, left lower quadrant tenderness, no guarding, non-distended Extremities: No edema Skin: No rashes Neurological: Cranial nerves II-XII grossly intact, Neuro grossly intact Psych/Mental Status: Normal Affect, Appropriate Assessment & Plan Assessment/Plan (1) Diverticulitis: (2) Sepsis: (3) Acute kidney injury superimposed on chronic kidney disease: PLAN: 1. Episode of vomiting, choking, concerning for dysphagia, resolved Patient is on regular textures, thin liquids Speech therapy following 2. Acute hypoxia, probable aspiration pneumonitis Patient currently on 4 L of oxygen Chest x-ray shows progressive bibasilar infiltrates, more prominent at the right lung base Continue on IV Zosyn(day 5) wean off oxygen 3. Sepsis due to acute diverticulitis, slowly improving WBC count is 12.7, continue on IV Zosyn(day5) Continue on regular diet, thin liquid textures General surgery following 4. Hypokalemia, replace, recheck in a.m. 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 Chronic atrial fibrillation, history of radiofrequency ablation, rate controlled, continue amiodarone, Cardizem, metoprolol Patient does not need bridging with IV heparin on account of atrial fibrillatio n; will discontinue heparin Will resume Coumadin at discharge 7. Hypertension, controlled, continue on metoprolol, hydralazine and cardizem. 8. Subclinical hypothyroidism, needs to be followed up in the outpatient 9. DVT PPx- Heparin SC Charges/Coding Visit Charges Inpatient E&M: 65397 Subs Hosp L2
[2022-01-06] MEDS: 0.9% Saline Lock 10 ML Syringe IV (14:28)
[2022-01-06] MEDS: Calcium Carbonate 500 MG Tablet 1000 MG PO ×2 (17:06→22:14)
--- NOTE | 2022-01-06 18:25 | NURSING ---
Reviewed charting with Rashaun Montesinos RN
[2022-01-07] VITALS (12 sets, daily range): BP systolic 124–134; BP diastolic 78–85; PULSE 70–112; RESP 16–18; TEMP 36.6–36.9; O2SAT 86–94
[2022-01-07] MEDS: Calcium Carbonate 500 MG Tablet 1000 MG PO (04:02)
[2022-01-07] MEDS: Heparin Injection (Vial) 5,000 UNIT/ML VIAL 5000 UNIT SC (05:21)
[2022-01-07] MEDS: Ondansetron 4 MG/2 ML Vial IV (05:30)
[2022-01-07] MEDS: 0.9% Saline Lock 10 ML Syringe IV ×2 (05:32→16:14)
[2022-01-07] MEDS: Ipratropium/Albuterol Sulfate 3 ML AMPUL.NEB INHALATION ×3 (06:44→14:36)
[2022-01-07] MEDS: Metoprolol Tartrate 25 MG Tablet 12.5 MG PO (08:50)
[2022-01-07] MEDS: Loratadine 10 MG Tablet PO (08:51)
[2022-01-07] MEDS: dilTIAZem CD 120 MG Capsule PO (08:51)
[2022-01-07] MEDS: Amiodarone 200 MG Tablet 100 MG PO ×2 (08:52→15:52)
--- NOTE | 2022-01-07 10:35 | CASEMGMT ---
Addendum entered by [place] Moura 01/07/22 13:30: Call from [facility] in TCU and she states they can accept pt today. Dr. Duran aware. Rosalva GARCIA CM Original Note: Per Dr. Duran, pt is interested in rehab at discharge and this RN CM to room with list of SNF providers including quality and resource use data and consistent with the pt's preferred geographic region, medical needs, and insurance network. Pt states would like TCU. Rose AGUDELO aware, voices understanding and referral to [facility] in TCU. Rosalva GARCIA CM
[2022-01-07] MEDS: Amox/Clavulanate 875 MG Tablet PO (10:40)
--- NOTE | 2022-01-07 11:46 | TREXTCAR_ITS ---
Diet 01/06/22 09:54 Diet: Cardiac - Heart Healthy Dietary Modifications:: Fiber Restricted Type of Dietary Supplement:: Ensure Clear Is pt able to select menu?: Yes Diet Comments: MEAT BITE SIZE; no carbonated drinks;240ml ensure clear BIDw/breakf.&dinner Routine Orders/Code Status Keep PO Greater than or Equal to (%): 94 Routine Lab Work: CBC (within 3 days) and BMP (within 3 days) Code Status: Full Code Therapies Weight Bearing: Weight bearing as tolerated Physical Therapy: Eval and Treat Occupational Therapy: Eval and Treat Speech Therapy: Eval and Treat Problem/Diagnosis (1) Diverticulitis: Status: Acute (2) Sepsis: Status: Acute (3) Acute kidney injury superimposed on chronic kidney disease: Status: Chronic Allergies/Procedures Done in Hospital Allergies diclofenac Allergy (Verified 12/08/21 13:58) rash prednisone Allergy (Verified 12/08/21 13:58) Rash Procedures: 2-D Echocardiogram Type of Care/Length of Stay Estimated LOS: Convalescent Care Less Than 30 days Type of Care Needed: Skilled Rehab Potential: Good Prognosis: Good Additional Orders/Day of Discharge Day of Discharge: 01/07/22 Dietary and Speech Recommendations Dietitian Recommendations/Changes: Recommend advance PO as medically able to therapeutic diet of Transitional diet with goal of Cardiac diet; consistency as per ELECTRICAL ESTIMATOR. Will add 240 ml ensure clear BID w/ breakfast and dinner. Adjust ONS as needed once diet advanced beyond clear liquids. Discharge Plan Admission Admit Date/Time: 01/02/22 17:34 Primary Reason for Your Visit: Acute sigmoid diverticulitis Attending Provider: Trisha Duran Primary Care Provider: César Chinchilla Consulting Providers: Roxanne Senior ; Adela Farley Instructions Additional Instructions / Restrictions: Complete your antibiotics as scheduled. Take note of changes to your medications. Follow-up with your primary care doctor and general surgery in the outpatient. You will need repeat blood work within a week to check on your kidney function. Discharge Orders/Prescriptions Prescriptions: No Action finasteride [Proscar] 5 mg tablet 5 mg PO DAILY RF: 0 warfarin 4 mg tablet 4 mg PO .COMPLEX RF: 0 lidocaine 5 % adhesive patch,medicated 1 patch topical DAILY RF: 0 pantoprazole 40 mg tablet,delayed release (DR/EC) 40 mg PO DAILY RF: 0 vitamin B complex no.10-FA 400 mcg tablet extended release 1 tab PO DAILY RF: 0 metoprolol tartrate 25 mg tablet 12.5 mg PO BID RF: 0 fluticasone propionate 50 mcg/actuation spray,suspension 1 spray intranasal BID PRN (Reason: Congestion) RF: 0 tamsulosin 0.4 mg capsule 0.4 mg PO DAILY RF: 0 vitamin a ktcnzynxa-O-onvibcwb 25,000 unit (15K-10K unit) tablet 1 tab PO DAILY RF: 0 hydralazine 25 mg tablet 12.5 mg PO TID RF: 0 Prolia 60 MG/ML syringe 60 mg SQ .[id number] RF: 0 calcium citrate 200 mg (950 mg) tablet 200 mg PO BID RF: 0 ipratropium bromide 21 mcg (0.03 %) [place],Non-Aerosol 2 spray INTRANASAL PRN PRN (Reason: SOB) RF: 0 Osteo Bi-Flex Triple Strength 750 mg-644 mg- 30 mg-1 mg Tablet 2 tab PO DAILY RF: 0 nitroglycerin 0.4 mg tablet, sublingual 0.4 mg SL DAILY RF: 0 meclizine 25 mg Tablet 25 mg PO TID PRN PRN (Reason: Dizziness) Qty: 30 RF: 0 warfarin 2 mg tablet 2 mg PO .COMPLEX RF: 0 amiodarone 200 mg tablet 100 mg PO BID RF: 0 furosemide 40 mg tablet 40 mg PO .PRN Qty: 90 RF: 3 lisinopril 10 mg tablet 10 mg PO DAILY RF: 0 diltiazem HCl 120 mg capsule,extended release 24hr 120 mg PO DAILY Qty: 90 RF: 3 Referrals / Follow Up: César Chinchilla MD [Primary Care Provider] - In 1 Week Roxanne Senior MD [STAFF PHYSICIAN] - Within 1 Week Disposition Disposition (needs filled in before D/C Order can be placed): Long-Term Facility
--- NOTE | 2022-01-07 11:49 | PCM.DC.SUM ---
Providers Date of Admission: 01/02/22 Date of Discharge: 01/07/22 Primary Care Physician: Dr. César Chinchilla MD Consultations 01/02/22 18:33 Consult: General Surgery Routine Consulting Provider: Roxanne Senior Reason for Consult: acute diverticulitis EMERGENT Consult: No MD Notified: Yes Date Notified: 01/02/22 Time Notified: 18:34 Method of Notification: Text Reason For Visit: SEPSIS DUE TO DIVERTICULITIS Diagnosis Discharge Diagnosis (1) Diverticulitis: Status: Acute Code(s): K57.92 - Diverticulitis of intestine, part unspecified, without perforation or abscess without bleeding (2) Sepsis: Status: Acute Code(s): A41.9 - Sepsis, unspecified organism (3) Acute kidney injury superimposed on chronic kidney disease: Status: Chronic Code(s): N17.9 - Acute kidney failure, unspecified; N18.9 - Chronic kidney disease, unspecified (4) Hypoxia: Status: Acute Code(s): R09.02 - Hypoxemia (5) Hypokalemia: Status: Acute Code(s): E87.6 - Hypokalemia Medications at Discharge Home Medications finasteride 5 mg tablet 5 mg PO DAILY tab 06/03/20 Prolia 60 mg SQ .[id number] 12/09/20 Osteo Bi-Flex Triple Strength 2 tab PO DAILY 05/06/21 ipratropium bromide 2 spray INTRANASAL PRN PRN 05/06/21 nitroglycerin 0.4 mg SL DAILY 05/06/21 meclizine 25 mg PO TID PRN PRN #30 tab 05/07/21 lidocaine 5 % topical patch 1 patch TOPICAL DAILY 09/18/21 metoprolol tartrate 25 mg tablet 12.5 mg PO BID tab 09/18/21 vitamin Bcomplex no.10-folic acid ER 400 mcg tablet,extended release 1 tab PO DAILY 09/18/21 amiodarone 100 mg PO BID 10/19/21 calcium citrate 200 mg (950 mg) tablet 200 mg PO BID tab 11/18/21 fluticasone propionate 50 mcg/actuation nasal spray,suspension 1 spray INTRANASAL BID PRN 11/18/21 tamsulosin 0.4 mg capsule 0.4 mg PO DAILY 11/18/21 vitamin A palmitate-beta carotene 25,000 unit (15K-10K unit) tablet 1 tab PO DAILY tab 11/18/21 warfarin 2 mg tablet 2 mg PO .COMPLEX tab 11/18/21 warfarin 4 mg tablet 4 mg PO .COMPLEX tab 11/18/21 diltiazem HCl 120 mg capsule,extended release 24 hr 120 mg PO DAILY #90 cap 12/23/21 amoxicillin-pot clavulanate 875 mg PO BID 5 Days #0 tab 01/07/22 ipratropium-albuterol 3 ml INHALATION Q4HWA.RT #0 ml 01/07/22 loratadine 10 mg PO DAILY 30 Days #30 tab 01/07/22 Hospital Course Operations None Procedures 2-D Echocardiogram Summary of Care Provided Minutes Spent on Discharge: 45 Hospital Course: 81-year-old male with extensive past medical history including CAD, chronic atrial fibrillation who presented with abdominal pain, nausea and vomiting that started on the morning of admission. Patient has a 30-day event monitor and follows with cardiology in the outpatient. CT of the abdomen and pelvis showed acute sigmoid diverticulitis with no focal fluid collection or free air. There was evidence of chronic fracture deformities of multiple thoracic and lumbar vertebral body status post kyphoplasty. His hospital course and management was as follows: 1. Acute dysphagia, occurred in the middle of the admission, patient appeared to have choked on eggs, He was kept n.p.o., speech therapy was consulted. Patient was kept on regular textures, thin liquids, meats cut bite-size. 2. Acute hypoxia, probable aspiration pneumonitis Patient remains on 4 L of oxygen. Patient was not on oxygen at home Chest x-ray shows progressive bibasilar atelectasis, more prominent at the right lung base Continued on oral Augmentin 3. Sepsis due to acute sigmoid diverticulitis, improved Seen on CT of the abdomen and pelvis on admission General surgery consulted in the hospital Patient was initially on IV Zosyn, discharged on Augmentin?total antibiotics 10 days 4. Hypokalemia, replaced 5.FE on CKD stage IIIb, slowly improving, Admitting creatinine was 2.75, discharge creatinine was 1.71 Baseline creatinine around 2.0 6. Chronic atrial fibrillation, history of radiofrequency ablation, rate controlled, Continued on amiodarone, Cardizem, metoprolol Patient does not need bridging with IV heparin on account of atrial fibrillation; was continued on subcu heparin Coumadin resumed at discharge. Repeat INR recommended 7. Hypertension, controlled, continued on metoprolol, hydralazine and cardizem. 8. Subclinical hypothyroidism, needs to be followed up in the outpatient in 6 weeks with repeat TSH Physical Exam Narrative General: Alert, Oriented x3, Cooperative HEENT: Atraumatic, PERRLA, EOMI, Normocephalic Oral: Moist Mucosa Neck: Supple Lungs: Normal air movement, Diminished Cardiovascular: Regular rate, Regular Rhythm, Normal S1, Normal S2, No murmurs Abdomen: Bowel Sounds Present, Soft, left lower quadrant tenderness, no guarding, non-distended Extremities: No edema Skin: No rashes Neurological: Cranial nerves II-XII grossly intact, Neuro grossly intact Psych/Mental Status: Normal Affect, Appropriate Weight / BMI Weight Weight: 70.4 kg Body Mass Index (BMI) 23.6 ABG / Lab / Microbiology Data Result Diagrams: 01/06/22 10:39 01/06/22 10:39 Microbiology: Microbiology 01/02/22 Unknown Urine, Catheterized Urine Culture - Final Culture exhibits no growth. 01/02/22 16:00 Nasal Secretion SARS-CoV-2 & FLU Antigen (Rapid) - Final Radiography Diagnostic Testing: Radiology Impression Chest X-Ray 01/06/22 05:19 IMPRESSION: 1. Persistent and moderately worsened bibasilar atelectasis greater on the RIGHT than LEFT. Developing small bilateral effusions noted. 2. No evidence congestive failure. Electronically Signed: Balbir Latham MD at 17:13 EDT Reading Location ID and State: [facility] / [place] Tel , Service support , D/C Instructions Discharge Diet: No restrictions Meaningful Use Info Meaningful Use Diagnoses (Choose all that apply): None applicable Discharge Plan Admission Admit Date/Time: 01/02/22 17:34 Primary Reason for Your Visit: Acute sigmoid diverticulitis Attending Provider: Trisha Duran Primary Care Provider: César Chinchilla Consulting Providers: Roxanne Senior ; Adela Farley Instructions Additional Instructions / Restrictions: Complete your antibiotics as scheduled. Take note of changes to your medications. Follow-up with your primary care doctor and general surgery in the outpatient. You will need repeat blood work within a week to check on your kidney function. Discharge Orders/Prescriptions Prescriptions: New ipratropium-albuterol 0.5 mg-3 mg(2.5 mg base)/3 mL Solution For Nebulization 3 ml inhalation Q4HWA.RT Qty: 0 RF: 0 amoxicillin-pot clavulanate 875-125 mg Tablet 875 mg PO BID 5 Days Qty: 0 RF: 0 loratadine 10 mg tablet 10 mg PO DAILY 30 Days Qty: 30 RF: 0 Continued finasteride [Proscar] 5 mg tablet 5 mg PO DAILY RF: 0 warfarin 4 mg tablet 4 mg PO .COMPLEX RF: 0 lidocaine 5 % adhesive patch,medicated 1 patch topical DAILY RF: 0 vitamin B complex no.10-FA 400 mcg tablet extended release 1 tab PO DAILY RF: 0 metoprolol tartrate 25 mg tablet 12.5 mg PO BID RF: 0 fluticasone propionate 50 mcg/actuation spray,suspension 1 spray intranasal BID PRN (Reason: Congestion) RF: 0 tamsulosin 0.4 mg capsule 0.4 mg PO DAILY RF: 0 vitamin a [id number] 25,000 unit (15K-10K unit) tablet 1 tab PO DAILY RF: 0 Prolia 60 MG/ML syringe 60 mg SQ .[id number] RF: 0 calcium citrate 200 mg (950 mg) tablet 200 mg PO BID RF: 0 ipratropium bromide 21 mcg (0.03 %) Williams,Non-Aerosol 2 spray INTRANASAL PRN PRN (Reason: SOB) RF: 0 Osteo Bi-Flex Triple Strength 750 mg-644 mg- 30 mg-1 mg Tablet 2 tab PO DAILY RF: 0 nitroglycerin 0.4 mg tablet, sublingual 0.4 mg SL DAILY RF: 0 meclizine 25 mg Tablet 25 mg PO TID PRN PRN (Reason: Dizziness) Qty: 30 RF: 0 warfarin 2 mg tablet 2 mg PO .COMPLEX RF: 0 amiodarone 200 mg tablet 100 mg PO BID RF: 0 diltiazem HCl 120 mg capsule,extended release 24hr 120 mg PO DAILY Qty: 90 RF: 3 Discontinued pantoprazole 40 mg tablet,delayed release (DR/EC) 40 mg PO DAILY RF: 0 hydralazine 25 mg tablet 12.5 mg PO TID RF: 0 furosemide 40 mg tablet 40 mg PO .PRN Qty: 90 RF: 3 lisinopril 10 mg tablet 10 mg PO DAILY RF: 0 Referrals / Follow Up: César Chinchilla MD [Primary Care Provider] - In 1 Week Roxanne Senior MD [STAFF PHYSICIAN] - Within 1 Week Disposition Disposition (needs filled in before D/C Order can be placed): Residential Facility Charges/Coding Visit Charges Inpatient E&M: 99281 Disch Hosp
--- NOTE | 2022-01-07 13:51 | CASEMGMT ---
MAGNUS notified patient that [facility] can take him and he will go today. Plan: d/c to [facility] under skilled level of care. [facility]
--- NOTE | 2022-01-07 16:06 | NURSING ---
Report called to TCU RN.
== END 2022-01-07 16:58 | DRG 871 ==
LOC: ED 17:17 → PCU 17:46
PROVIDERS: Admitting Provider Student in an Organized Health Care Education/Training Program; Emergency Provider Emergency Medicine; PCP Family Medicine; Visit Provider Internal Medicine
DX: A41.9 Sepsis, unspecified organism (principal); J69.0 Pneumonitis due to inhalation of food and vomit; I13.0 Hypertensive heart and chronic kidney disease with heart failure and stage 1 through stage 4 chronic kidney disease, or unspecified chronic kidney disease; N17.9 Acute kidney failure, unspecified; I50.32 Chronic diastolic (congestive) heart failure; K57.32 Diverticulitis of large intestine without perforation or abscess without bleeding; I27.21 Secondary pulmonary arterial hypertension; I95.9 Hypotension, unspecified; I48.0 Paroxysmal atrial fibrillation; I71.2 Thoracic aortic aneurysm, without rupture; N18.32 Chronic kidney disease, stage 3b; I25.10 Atherosclerotic heart disease of native coronary artery without angina pectoris; I25.2 Old myocardial infarction; E86.0 Dehydration; N40.0 Benign prostatic hyperplasia without lower urinary tract symptoms; K21.9 Gastro-esophageal reflux disease without esophagitis; I34.0 Nonrheumatic mitral (valve) insufficiency; M19.90 Unspecified osteoarthritis, unspecified site; E03.8 Other specified hypothyroidism; E87.6 Hypokalemia; Z87.19 Personal history of other diseases of the digestive system; Z87.442 Personal history of urinary calculi; Z79.899 Other long term (current) drug therapy; Z79.01 Long term (current) use of anticoagulants; Z95.5 Presence of coronary angioplasty implant and graft; Z86.010 Personal history of colon polyps; R09.02 Hypoxemia
CPT/HCPCS: 36415; 71045; 74019; 74176; 80053; 81001; 82607; 82746; 83605; 83690; 83735; 84439; 84443; 84484; 85025; 85610; 85730; 87040; 87086; 87426; 87428; 87493; 87506; 92610; 93005; 93306; 94640; 97162; 97166; 97530; 97535; 99251; 99285; J7030; P9612; Q9957; A4216; G0463; J0744; J2405

== ENCOUNTER 2022-01-07 17:12 | Inpatient (IN) | payer MEDICARE, OTHER, SELFPAY ==
[2022-01-07 17:27] VITALS: BP 129/68; PULSE 100; RESP 22; TEMP 36.8; O2SAT 93; BMI 23.6
[2022-01-07 18:43] LABS: International Normalized Ratio 1.5; Prothrombin Time (Protime)PT. 17.4 SECONDS (11.7-14.9)
[2022-01-07 19:51] VITALS: PULSE 106; RESP 16; O2SAT 91
[2022-01-07 20:07] VITALS: BP 132/79; PULSE 106
[2022-01-07] MEDS: Metoprolol Tartrate 25 MG Tablet 12.5 MG PO (20:07)
[2022-01-07] MEDS: Loratadine 10 MG Tablet PO (20:08)
--- NOTE | 2022-01-07 20:42 | HP.PCM_ITS ---
HPI - General General Date of Admission: 01/07/22 HPI Narrative 01/02/2022 RICHIE HANSEN, is a 81 Male who presents to [facility] Emergency Department with nausea, vomiting, diarrhea. On and off chest pain, substernal aching. Periumbilical abdominal cramping, vomiting, diarrhea. IV fluids given, Zofran given, Reglan given. Lactic acid 3.9, Chest X-ray okay. CT abdomen/pelvis showed acute diverticulitis, Cipro given, Flagyl given. 01/02/2022 Admit to Hospital. Send blood cultures, IV fluids, Zosyn IV, general surgery consult for sepsis/diverticulitis. IV fluids for acute kidney injury. Hold Amiodarone, Hold Metoprolol, Hold Cardizem for low blood pressure. 01/03/2022 Abdominal pain better, but diarrhea. WBC 29, Lactate down to 1.7. Acute kidney injury improved. 01/04/2022 Mild left lower quadrant pain. Zosyn IV, Clear liquid diet for acute diverticulitis. Creatinine improved to 1.93. Resume Amiodarone, Metoprolol, Cardizem for atrial fibrillation. Resume coumadin on discharge. 01/04/2022 Echo Normal LV size. Left ventricular systolic function normal. EF 55%. PASP 66mm HG. Moderate pulmonary hypertension. 01/05/2022 Choking, vomiting, loose stools. Speech therapy for dysphagia. Zosyn IV, oxygen, Chest X-ray for aspiration pneumonia. WBC 12.7, Creatinine 1.71. 01/06/2022 Oxygen 4 liters, regular texture, thin liquids for dysphagia. Chest X-ray shows bibasilar infiltrates. 01/07/2022 Admit to TCU with debility, here for rehabilitation, strengthening, prior to discharge home alone. [facility] Medical History Acute blood loss anemia Acute diverticulitis of intestine Acute gastrointestinal bleeding Atherosclerotic heart disease of [place] coronary artery without angina pectoris Atrial fibrillation Atypical atrial flutter (12/2020) Benign prostatic hyperplasia BPH (benign prostatic hyperplasia) Cancer Chronic heart failure with preserved ejection fraction (HFpEF) Chronic kidney disease Chronic renal insufficiency CPAP (continuous positive airway pressure) dependence Debility Dysphagia Elevated liver enzymes Essential (primary) hypertension GERD (gastroesophageal reflux disease) GI bleed (2012) History of colon polyps History of hyperthyroidism HLD (hyperlipidemia) Hypertension Kidney disease Kidney stones Myocardial infarct Non-rheumatic tricuspid valve insufficiency Non-smoker Nonrheumatic mitral (valve) insufficiency 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 Osteoarthritis Paroxysmal atrial fibrillation Secondary pulmonary arterial hypertension Sleep apnea Stage 3b chronic kidney disease Thoracic aortic aneurysm (TAA) Home Medications finasteride 5 mg tablet 5 mg PO DAILY tab 06/03/20 [History Last Taken 01/20/21] Prolia 60 mg SQ .[id number] 12/09/20 [History Last Taken 12/05/20] Osteo Bi-Flex Triple Strength 2 tab PO DAILY 05/06/21 [History Last Taken Unknown] ipratropium bromide 2 spray INTRANASAL PRN PRN 05/06/21 [History Last Taken Unknown] nitroglycerin 0.4 mg SL DAILY 05/06/21 [History Last Taken Unknown] meclizine 25 mg PO TID PRN PRN #30 tab 05/07/21 [Rx Last Taken Unknown] lidocaine 5 % topical patch 1 patch TOPICAL DAILY 09/18/21 [History Last Taken Unknown] metoprolol tartrate 25 mg tablet 12.5 mg PO BID tab 09/18/21 [History Last Taken 01/07/22 08:50] vitamin Bcomplex no.10-folic acid ER 400 mcg tablet,extended release 1 tab PO DA DESIREE 09/18/21 [History Last Taken Unknown] amiodarone 100 mg PO BID 10/19/21 [History Last Taken 01/07/22 08:52] calcium citrate 200 mg (950 mg) tablet 200 mg PO BID tab 11/18/21 [History Last Taken Unknown] fluticasone propionate 50 mcg/actuation nasal spray,suspension 1 spray INTRANASAL BID PRN 11/18/21 [History Last Taken Unknown] tamsulosin 0.4 mg capsule 0.4 mg PO DAILY 11/18/21 [History Last Taken Unknown] vitamin A palmitate-beta carotene 25,000 unit (15K-10K unit) tablet 1 tab PO DAILY tab 11/18/21 [History Last Taken Unknown] warfarin 2 mg tablet 2 mg PO .COMPLEX tab 11/18/21 [History Last Taken Unknown] warfarin 4 mg tablet 4 mg PO .COMPLEX tab 11/18/21 [History Last Taken Unknown] amoxicillin-pot clavulanate 875 mg PO BID 01/07/22 [History Last Taken 01/07/22 10:40] diltiazem HCl 120 mg PO DAILY 01/07/22 [History Last Taken 01/07/22 08:51] ipratropium-albuterol 3 ml INHALATION Q4HWA.RT 01/07/22 [History Last Taken 01/07/22 10:49] loratadine 10 mg PO DAILY 01/07/22 [History Last Taken Unknown] Allergy/AdvReac Type Severity Reaction Status Date / Time diclofenac Allergy rash Verified 12/08/21 13:58 prednisone Allergy Rash Verified 12/08/21 13:58 Family History Father Cancer Prostate cancer Mother Hypertension Sister Hypertension Surgical History History of back surgery History of cardioversion (06/18/19) History of coronary artery stent placement (08/04/00) History of electrophysiologic study (08/08/00) History of hemorrhoidectomy History of hernia repair History of left heart catheterization (07/17/12) History of Zenaida fundoplication History of radiofrequency ablation procedure for cardiac arrhythmia (11/11/11) Social History (Updated 01/07/22 @ 20:[address] Marcus Samuel MD) household members: none Smoking Status: Never smoker alcohol intake: never substance use type: does not use caffeine: No ROS Constitutional Constitutional: Denies chills, fever(s) or weight gain ENT HEENT: Denies headache(s), nasal congestion or nasal discharge Cardiovascular Cardiovascular: Denies chest pain or palpitations Respiratory/Chest Respiratory/Chest: Denies cough, excessive phlegm production or shortness of breath with exertion Gastrointestinal Gastrointestinal: Denies abdominal pain, nausea or vomiting Genitourinary Genitourinary: Denies dysuria Musculoskeletal Musculoskeletal: Denies joint pain or joint swelling Integumentary Integumentary: Denies rash or wounds Neurologic Neurologic: Denies focal weakness, numbness or tingling Psychiatric Psychiatric: Denies anxiety, auditory hallucinations, depression, homicidal ideation or suicidal ideation Vital Signs Vital Signs Vital Signs: 01/07/22 17:27 01/07/22 20:07 Temperature 98.2 F Temperature Source Temporal Pulse Rate 100 106 H Respiratory Rate 22 H Blood Pressure 129/68 H 132/79 H Blood Pressure Mean 88 Blood Pressure Source Monitor Blood Pressure Position Sitting Blood Pressure Location Right Arm Pulse Ox 93 Oxygen Delivery Method Nasal Cannula Oxygen Flow Rate (L/min) 4 Weight Weight: 70.67 kg Body Mass Index (BMI) 23.6 Physical Exam Const alert General Appearance: cooperative HEENT normocephalic Eyes PERRL and EOMs intact bilaterally Neck supple, no JVD and no carotid bruits Resp normal respiratory effort, normal air movement and clear to auscultation bilaterally Cardio Cardio Narrative: Irregularly irregular GI normal to inspection, nondistended, normoactive bowel sounds, non-tender and non-distended Extremity normal capillary refill General Extremity: Negative for edema Skin no rashes or lesions noted General Skin Exam: no breakdown Psych affect normal Appearance: appropriate Results Lab / Micro Data Labs: Laboratory Results - last 24 hr 01/07/22 18:25: PT 17.4 H, INR 1.5 Assessment & Plan Assessment/Plan (1) Debility: (2) Sepsis: (3) Acute diverticulitis: (4) Acute kidney injury: (5) Chronic kidney disease, stage 3b: (6) Dysphagia: (7) Aspiration pneumonia: (8) Acute respiratory failure with hypoxia: (9) Benign prostatic hyperplasia: (10) Osteoporosis: (11) Allergic rhinitis: (12) Coronary artery disease: (13) Atrial fibrillation: (14) Gastroesophageal reflux disease: (15) Iron deficiency anemia: PLAN: 81 year old male with below past medical history hospitalized for sepsis secondary to diverticulitis, complicated by acute kidney injury, dysphagia, aspiration pneumonia, admitted to TCU with debility, here for rehabilitation, strengthening, prior to discharge home alone. * Debility - PT/OT. * Dysphagia - ST. * Pain - Tylenol 1000mg q6h prn pain (1-10), Lidoderm patch 1 patch daily. * Bowel - Senna/colace 1 tablet bid prn, Dulcolax 10mg daily prn. * Adult immunization - Administer pneumonia vaccine, flu vaccine, covid19 vaccine as appropriate. * DVT prophylaxis - Not necessary, already on coumadin. * Atrial fibrillation - Metoprolol 12.5mg bid, Diltiazem 120mg daily, Amiodarone 100mg bid, warfarin 4mg 6 days/week, 2mg 1 day/week. * Aspiration pneumonia/Diverticulitis - Augmentin 875mg bid x 5 days. * Calcium deficiency - Calcium 500mg bid. * BPH - Finasteride 5mg daily, Tamsulosin 0.4mg daily. * Allergic rhinitis - Flonase 1 spray bid prn, Atrovent 2 sprays daily prn, Loratadine 10mg daily. * Shortness of breath - Duoneb 3ml q4h prn. * BPPV - Meclizine 25mg tid prn. * Coronary artery disease - Metoprolol 12.5mg bid, NTG 0.4mg sl prn, coumadin. * Vitamn B deficiency - Vitamin B complex 1 tablet daily.
--- NOTE | 2022-01-07 20:50 | NURSING ---
Code status discussed, pt. states want to be Full code
[2022-01-08 06:04] LABS: Absolute Neutrophil Count 9.1 X10^3/uL (2.0-7.7); Basophil# 0.04 X10^3/uL; Basophil% 0.4 % (0-1); Eosinophil# 0.21 X10^3/uL; Eosinophils% 1.9 % (0-5); Hematocrit 27.6 % (40-54); Hemoglobin 9.2 g/dL (13.0-16.5); Lymphocyte % 7.1 % (19-41); Mean Corp Hgb Conc 33.3 g/dL (32-36); Mean Corpuscular Hgb 35.7 pg (27.0-32.0); Mean Platelet Vol. 10.6 fl (6.2-12.0); Monocyte# 0.88 X10^3/uL; Monocyte% 7.9 % (0-10); NRBC Flagged by Analyzer 0.3 % (0-5); Neutrophil # 9.13 X10^3/uL (2.7-7.7); Neutrophil % 81.5 % (47-70); Platelet Count 223 K/mm3 (150-450); RBC Distribution Width CV 15.9 % (11.6-14.6); RBC Distribution Width SD 61.7 fl (35.1-43.9); Red Blood Count 2.58 M/mm3 (4.6-6.2); White Blood Count 11.2 K/mm3 (4.4-11.0)
[2022-01-08 06:29] VITALS: BP 122/74; PULSE 98
[2022-01-08] MEDS: Metoprolol Tartrate 25 MG Tablet 12.5 MG PO ×2 (06:29→17:54)
[2022-01-08] MEDS: Finasteride 5 MG Tablet PO (06:29)
[2022-01-08] MEDS: dilTIAZem CD 120 MG Capsule PO (06:30)
[2022-01-08] MEDS: Loratadine 10 MG Tablet PO (06:30)
[2022-01-08] MEDS: Amiodarone 200 MG Tablet 100 MG PO ×2 (06:31→17:53)
[2022-01-08 06:32] LABS: Anion Gap 6 (5-15); BUN 24 mg/dL (7-18); BUN/Creat Ratio 14.5 RATIO (10-20); Chloride 110 mmol/L (98-107); Creatinine, Serum 1.66 mg/dL (0.70-1.30); EST Glomerular Filtration Rate 43 mL/min (>60); Est Glom Filt Rate - Afr Amer 51 mL/min (>60); Estimated Creatinine Clearance 34.34 ml/min; Glucose 95 mg/dL (74-106); Potassium 3.8 mmol/L (3.5-5.1); Sodium Level 140 mmol/L (136-145)
[2022-01-08] MEDS: Amox/Clavulanate 875 MG Tablet PO ×2 (06:33→17:52)
[2022-01-08] MEDS: Calcium (Elemental) 500 MG Tablet PO ×2 (07:57→17:50)
[2022-01-08] MEDS: Vitamin B Comp W-C Capsule 1 CAP PO (07:57)
[2022-01-08] MEDS: Tamsulosin HCl 0.4 MG Capsule PO (07:57)
--- NOTE | 2022-01-08 08:33 | NURSING ---
PT REQUESTING MAILBOX GOLDSMITH BE LOCKED UP, PLACED IN LOCKED MED CABINET IN ROOM
[2022-01-08 08:34] VITALS: O2SAT 94
[2022-01-08] MEDS: Tuberculin,Purif.prot.deriv. 50 TU/ML Vial 0.1 ML ID (10:06)
--- NOTE | 2022-01-08 10:14 | PHA.CONS1_ITS ---
Progress Note - Pharmacy Subjective: TCU ADMISSION Objective: Allergies diclofenac Allergy (Verified 12/08/21 13:58) rash prednisone Allergy (Verified 12/08/21 13:58) Rash Current Medications Generic Name Dose Route Start Last Admin Trade Name Freq PRN Reason Stop Dose Admin Acetaminophen 1,000 mg 01/07/22 21:03 Acetaminophen 500 Mg Tablet PO Q6H PRN PRN Pain Score 1-10 Albuterol/Ipratropium 3 ml 01/07/22 19:30 Ipratropium/Albuterol Sulfate 3 Ml Ampul.Neb INHALATION Q4HWA.RT ILEANA Amiodarone HCl 100 mg 01/08/22 06:00 01/08/22 06:31 Amiodarone 200 Mg Tablet PO 100 mg BID ILEANA Administration Amoxicillin/Clavulanate Potassium 875 mg 01/08/22 06:00 01/08/22 06:33 Amox/Clavulanate 875 Mg Tablet PO 01/13/22 06:01 875 mg BID ILEANA Administration Bisacodyl 10 mg 01/07/22 21:03 Bisacodyl 5 Mg Tablet PO DAILY PRN Constipation Calcium Carbonate 500 mg 01/08/22 08:00 01/08/22 07:57 Calcium (Elemental) 500 Mg Tablet PO 500 mg 0800,1700 [facility] Administration Diltiazem HCl 120 mg 01/08/22 06:00 01/08/22 06:30 Diltiazem Cd 120 Mg Capsule PO 120 mg DAILY [facility] Administration Finasteride 5 mg 01/08/22 06:00 01/08/22 06:29 Finasteride 5 Mg Tablet PO 5 mg DAILY ILEANA Administration Fluticasone Propionate 1 spray 01/07/22 18:54 Fluticasone 0.05% 1 [place] Nasal.Sry NASAL BID PRN Congestion Ipratropium [place] 2 spray 01/07/22 18:54 Ipratropium [place] 0.06% Nasal [place] NASAL TID PRN PRN NASAL CONGESTION Lidocaine 1 patch 01/08/22 06:00 01/08/22 06:32 Lidocaine 5% Patch TOPICAL Not Given DAILY [facility] Protocol Loratadine 10 mg 01/08/22 06:00 01/08/22 06:30 Loratadine 10 Mg Tablet PO 10 mg DAILY ILEANA Administration Meclizine HCl 25 mg 01/07/22 18:54 Meclizine Hcl 25 Mg Tablet PO TID PRN PRN Dizziness Metoprolol Tartrate 12.5 mg 01/07/22 19:00 01/08/22 06:29 Metoprolol Tartrate 25 Mg Tablet PO 12.5 mg BID ILEANA Administration Multivitamins 1 capsule 01/08/22 08:00 01/08/22 07:57 Vitamin B Comp W-C Capsule PO 1 capsule 0800 [facility] Administration Nitroglycerin 0.4 mg 01/07/22 20:57 Nitroglycerin (Inpatient Use) 0.4 Mg Tab.Subl SL Q5M PRN CARDIAC/CHEST PAIN Senna/Docusate Sodium 1 tablet 01/07/22 21:03 Senna/Docusate Sodium 1 Tablet PO BID PRN PRN CONSTIPATION Sodium Chloride 10 - 40 ml 01/07/22 18:49 0.9% Saline Lock 10 Ml Syringe IV UD PRN SALINE FLUSH Sodium Chloride 10 - 40 ml 01/07/22 20:53 0.9% Saline Lock 10 Ml Syringe IV UD PRN SALINE FLUSH Tamsulosin HCl 0.4 mg 01/08/22 08:30 01/08/22 07:57 Tamsulosin Hcl 0.4 Mg Capsule PO 0.4 mg 0830 [facility] Administration Tuberculin PPD 0.1 ml 01/15/22 10:00 Tuberculin,Purif.Prot.Deriv. 50 Tu/Ml Vial ID 01/15/22 10:01 X1 ONE Warfarin Sodium 2 mg 01/10/22 17:00 Jantoven 2 Mg Tablet PO Turner@1700 [facility] Warfarin Sodium 4 mg 01/08/22 17:00 Warfarin 4 Mg Tablet PO MoTuWeThFrSa@1700 [facility] Problem List (Last Reviewed 01/07/22 @ 20:[address] Marcus Samuel MD) Iron deficiency anemia (Acute) Gastroesophageal reflux disease (Acute) Atrial fibrillation (Acute) Coronary artery disease (Acute) Allergic rhinitis (Acute) Osteoporosis (Acute) Benign prostatic hyperplasia (Acute) Acute respiratory failure with hypoxia (Acute) Aspiration pneumonia (Acute) Dysphagia (Acute) Chronic kidney disease, stage 3b (Acute) Acute kidney injury (Acute) Acute diverticulitis (Acute) Sepsis (Acute) Debility (Acute) Vital Signs Temp Pulse Resp BP Pulse Ox 98.2 F 98 16 122/74 H 94 01/07/22 17:27 01/08/22 06:29 01/07/22 19:51 01/08/22 06:29 01/08/22 08:34 Oxygen Flow Rate (L/min) 4 Oxygen Delivery Method Nasal Cannula Weight: 70.67 kg Body Mass Index (BMI) 23.6 Sodium 140 mmol/L (136-145) 01/08/22 05:16 Potassium 3.8 mmol/L (3.5-5.1) 01/08/22 05:16 Chloride 110 mmol/L (98-107) H 01/08/22 05:16 Carbon Dioxide 24.0 mmol/L (21.0-32.0) 01/08/22 05:16 Anion Gap 6 (5-15) 01/08/22 05:16 BUN 24 mg/dL (7-18) H 01/08/22 05:16 Creatinine 1.66 mg/dL (0.70-1.30) H 01/08/22 05:16 Est GFR (MDRD) Af Amer 51 mL/min (>60) L 01/08/22 05:16 Est GFR (MDRD) Non-Af 43 mL/min (>60) L 01/08/22 05:16 BUN/Creatinine Ratio 14.5 RATIO (10-20) 01/08/22 05:16 Glucose 95 mg/dL (74-106) 01/08/22 05:16 Assessment/Plan: 1. Pain: Tylenol 1000mg PO Q6h PRN Pain 1-10, Lidocaine Patch 1 Patch topically Daily. Please continue to monitor for increased/decreased S/S pain, local site redness/reactions with lidocaine patch use. -The patient has required 0 doses of Tylenol in the past 24hrs. 2. Atrial Fibrillation/CAD: Amiodarone 100mg PO BID, Diltiazem 120mg PO Daily, Lopressor 12.5mg PO BID, Warfarin 2mg PO Tuesday and 4mg PO -, Nitrostat Q5min PRN. Please continue to monitor BP (last 122/74), Pulse (last 98 BPM), INR (last 1.5 on 01/07), S/S bleeding/bruising, Vitamin K dietary intake. Of note; pt INR is subtherapeutic at this time. Please continue to monitor INR and increase dose as needed for a goal INR of 2-3 3. BPH: Finasteride 5mg PO Daily, Flomax 0.4mg PO Daily. Please continue to monitor for improvement in urinary symptoms 4. Allergic Rhinitis: Claritin 10mg PO Daily, Flonase 1 spray BID PRN, Atrovent nasal spray 2 spray TID PRN. Please continue to monitor for improvement in allergy symptoms, PRN medication requirements. Of note, if patient uses Atrovent regularly, should not exceed a duration of 3 weeks to avoid rebound congestion. 5. Shortness of Breath: Duoneb inhalation Q4HWA. Please continue to monitor for medication effectiveness, heart rate. 6. Aspiration Pneumonia/Diverticulitis: Augmentin 875mg PO BID thru 01/13/22. Please continue to monitor for resolution of infection, nausea/ stomach upset, and diarrhea. 7. Dizziness: meclizine 25mg PO TID PRN. This is a Beer's Criteria Medication and can increase the risk of confusion and anticholinergic effects. The patient does not have history of falls per H/P, but continue to monitor for these effects. 8. General Wellness: Calcium 500mg PO BID, Vitamin B Complex 1 capsule PO Daily. Please continue to monitor appropriate labs as clinically indicated. Psychotropic Medications: None Unnecessary Medications: None Bowel Regimen: Dulcolax 10mg PO Daily PRN, Senna/Docusate 1 tab PO BID PRN. Please continue to monitor for increased/decreased constipation/diarrhea, PRN medication usage. - The patient does not have a documented bowel movement (<24hr since admitted) and has required 0 doses of PRN medication Date of Note:: 01/08/22
[2022-01-08 10:35] VITALS: PULSE 101; O2SAT 96
--- NOTE | 2022-01-08 13:54 | CASEMGMT ---
Addendum entered by Roya Sarabia 01/08/22 14:08: Offered medical alert button, but pt does not want to pay the $20/mo. Inquired about finances. Pt doesn't have much left over at the end of the month. Offered MOY. Pt agreeable. Provided MOY carley to pt. Original Note: Social Work Met with patient to complete initial assessment. Introduced self and role. Pt wishes to have sister Neelima as primary contact. Discussed code status and MOLST form. Pt confirms full code. MOLST communicated to , placed in chart. Explained Medicare benefit. Encouraged to contact secondary insurance to ensure copay coverage. The goal is for pt to return home alone without O2. SW to continue to follow. NAUN Beckwith BOOK OR SCRIPT EDITOR
[2022-01-08 15:54] VITALS: BP 133/94; PULSE 108; RESP 16; TEMP 36.6; O2SAT 96
--- NOTE | 2022-01-08 16:18 | NURSING ---
dr hess updated on cdiff results, start pt on probiotic and monitor for loose stools. if having test for cdiff.
[2022-01-08 17:54] VITALS: BP 133/94; PULSE 108
[2022-01-09] VITALS (7 sets, daily range): BP systolic 123–144; BP diastolic 75–83; PULSE 87–111; RESP 14–18; TEMP 37.2; O2SAT 93–96
[2022-01-09] MEDS: Loratadine 10 MG Tablet PO (06:43)
[2022-01-09] MEDS: Metoprolol Tartrate 25 MG Tablet 12.5 MG PO ×2 (06:43→17:10)
[2022-01-09] MEDS: Amox/Clavulanate 875 MG Tablet PO ×2 (06:43→17:11)
[2022-01-09] MEDS: dilTIAZem CD 120 MG Capsule PO (06:45)
[2022-01-09] MEDS: Amiodarone 200 MG Tablet 100 MG PO ×2 (06:45→17:10)
[2022-01-09] MEDS: Finasteride 5 MG Tablet PO (06:46)
--- NOTE | 2022-01-09 07:24 | NURSING ---
athletic monitor in place, requested monitor booklet, patient states left at home I take care of it myself, I have been doing it for a couple weeks, pt. expresses preference to self manage per state pilot home instructions.
[2022-01-09] MEDS: Ipratropium/Albuterol Sulfate 3 ML AMPUL.NEB INHALATION ×4 (07:26→19:10)
[2022-01-09] MEDS: Vitamin B Comp W-C Capsule 1 CAP PO (08:03)
[2022-01-09] MEDS: Calcium (Elemental) 500 MG Tablet PO ×2 (08:04→17:11)
[2022-01-09] MEDS: Tamsulosin HCl 0.4 MG Capsule PO (08:04)
[2022-01-09] MEDS: MENTHOL 226.8 GM JAR 1 APPLIC TOPICAL (15:29)
[2022-01-09] MEDS: Acetaminophen 500 MG Tablet 1000 MG PO (18:45)
[2022-01-10] VITALS (7 sets, daily range): BP systolic 125–143; BP diastolic 78; PULSE 97–122; RESP 12–18; TEMP 36.2–36.4; O2SAT 92–94
[2022-01-10] MEDS: Amiodarone 200 MG Tablet 100 MG PO ×2 (05:59→17:15)
[2022-01-10] MEDS: Metoprolol Tartrate 25 MG Tablet 12.5 MG PO ×2 (06:00→17:14)
[2022-01-10] MEDS: Finasteride 5 MG Tablet PO (06:01)
[2022-01-10] MEDS: Amox/Clavulanate 875 MG Tablet PO ×2 (06:02→17:15)
[2022-01-10] MEDS: dilTIAZem CD 120 MG Capsule PO (06:03)
[2022-01-10] MEDS: Loratadine 10 MG Tablet PO (06:03)
[2022-01-10] MEDS: Ipratropium Bromide 0.06% NASAL SPRAY 2 SPRAY NASAL (09:20)
[2022-01-10] MEDS: Calcium (Elemental) 500 MG Tablet PO ×2 (09:20→17:15)
[2022-01-10] MEDS: Vitamin B Comp W-C Capsule 1 CAP PO (09:20)
[2022-01-10] MEDS: Tamsulosin HCl 0.4 MG Capsule PO (09:20)
[2022-01-10] MEDS: Ipratropium/Albuterol Sulfate 3 ML AMPUL.NEB INHALATION ×3 (11:38→19:25)
[2022-01-10] MEDS: MENTHOL 226.8 GM JAR 1 APPLIC TOPICAL (16:22)
[2022-01-10] MEDS: Acetaminophen 500 MG Tablet 1000 MG PO (16:22)
[2022-01-10] MEDS: Jantoven 2 MG Tablet PO (17:16)
[2022-01-11] VITALS (7 sets, daily range): BP systolic 134–152; BP diastolic 86–96; PULSE 63–119; RESP 18–20; TEMP 36.7; O2SAT 90–95
[2022-01-11] MEDS: Amox/Clavulanate 875 MG Tablet PO ×2 (05:53→17:50)
[2022-01-11] MEDS: Finasteride 5 MG Tablet PO (05:53)
[2022-01-11] MEDS: Amiodarone 200 MG Tablet 100 MG PO ×2 (05:54→17:50)
[2022-01-11] MEDS: Loratadine 10 MG Tablet PO (05:54)
[2022-01-11] MEDS: Metoprolol Tartrate 25 MG Tablet 12.5 MG PO ×2 (05:54→17:50)
[2022-01-11] MEDS: dilTIAZem CD 120 MG Capsule PO (05:56)
[2022-01-11] MEDS: Ipratropium Bromide 0.06% NASAL SPRAY 2 SPRAY NASAL ×2 (05:58→22:43)
[2022-01-11] MEDS: Vitamin B Comp W-C Capsule 1 CAP PO (08:44)
[2022-01-11] MEDS: Calcium (Elemental) 500 MG Tablet PO ×2 (08:44→17:50)
[2022-01-11] MEDS: Tamsulosin HCl 0.4 MG Capsule PO (08:44)
[2022-01-11 08:48] LABS: International Normalized Ratio 1.6; Prothrombin Time (Protime)PT. 18.4 SECONDS (11.7-14.9)
[2022-01-11] MEDS: MENTHOL 226.8 GM JAR 1 APPLIC TOPICAL ×2 (11:27→22:44)
[2022-01-11] MEDS: Acetaminophen 500 MG Tablet 1000 MG PO (22:52)
[2022-01-12] VITALS (8 sets, daily range): BP systolic 135–139; BP diastolic 87–91; PULSE 100–118; RESP 16–20; TEMP 36.9; O2SAT 91–96
[2022-01-12] MEDS: Metoprolol Tartrate 25 MG Tablet 12.5 MG PO ×2 (06:58→17:37)
[2022-01-12] MEDS: dilTIAZem CD 120 MG Capsule PO (06:59)
[2022-01-12] MEDS: Amox/Clavulanate 875 MG Tablet PO ×2 (06:59→17:36)
[2022-01-12] MEDS: Loratadine 10 MG Tablet PO (06:59)
[2022-01-12] MEDS: Amiodarone 200 MG Tablet 100 MG PO ×2 (06:59→17:36)
[2022-01-12] MEDS: Finasteride 5 MG Tablet PO (07:00)
[2022-01-12] MEDS: Vitamin B Comp W-C Capsule 1 CAP PO (08:48)
[2022-01-12] MEDS: Tamsulosin HCl 0.4 MG Capsule PO (08:48)
[2022-01-12] MEDS: Calcium (Elemental) 500 MG Tablet PO ×2 (08:48→17:36)
[2022-01-12] MEDS: MENTHOL 226.8 GM JAR 1 APPLIC TOPICAL ×2 (11:55→17:39)
[2022-01-12] MEDS: Acetaminophen 500 MG Tablet 1000 MG PO (14:37)
[2022-01-12] MEDS: Ipratropium Bromide 0.06% NASAL SPRAY 2 SPRAY NASAL (17:38)
[2022-01-13 06:22] VITALS: BP 139/76; PULSE 110
[2022-01-13] MEDS: Amox/Clavulanate 875 MG Tablet PO (06:22)
[2022-01-13] MEDS: dilTIAZem CD 120 MG Capsule PO (06:22)
[2022-01-13] MEDS: Finasteride 5 MG Tablet PO (06:22)
[2022-01-13] MEDS: Amiodarone 200 MG Tablet 100 MG PO ×2 (06:22→17:40)
[2022-01-13] MEDS: Loratadine 10 MG Tablet PO (06:22)
[2022-01-13] MEDS: Metoprolol Tartrate 25 MG Tablet 12.5 MG PO ×2 (06:22→17:39)
[2022-01-13 07:00] VITALS: PULSE 115; RESP 18; O2SAT 94
[2022-01-13] MEDS: Ipratropium/Albuterol Sulfate 3 ML AMPUL.NEB INHALATION ×2 (07:34→11:05)
[2022-01-13] MEDS: Calcium (Elemental) 500 MG Tablet PO ×2 (07:50→17:40)
[2022-01-13] MEDS: Tamsulosin HCl 0.4 MG Capsule PO (07:50)
[2022-01-13] MEDS: MENTHOL 226.8 GM JAR 1 APPLIC TOPICAL (07:50)
[2022-01-13] MEDS: Vitamin B Comp W-C Capsule 1 CAP PO (07:50)
--- NOTE | 2022-01-13 13:04 | CASEMGMT ---
Social Work IDT met with patient, sister and MIKE for care plan meeting. Discussed patient's progress in PT/OT/ST and nursing. Explained Medicare benefit. Encouraged to contact secondary insurance to ensure copay coverage. Pt is on new O2, getting aerosols. Pt is mod I/adlib. However, ST recommending supervision for medications and finances, educated to altered diet, and strategies for swallowing pills. Recommending outpatient ST/PT at DC. Pt agreeable to [employer] Provided resources for home delivered meals, per pt/family request. Pt and family agree for pt to continue to get stronger in TCU prior to discharging home alone. Pt was driving prior. SW to continue to follow for DC plans. Roya Sarabia, AGRICULTURAL EDUCATION TEACHER AUDIOMETRIC TECHNICIAN
[2022-01-13 16:00] VITALS: BP 135/87; PULSE 119; RESP 14; TEMP 36.3; O2SAT 93
[2022-01-13 17:39] VITALS: PULSE 119
[2022-01-13] MEDS: Acetaminophen 500 MG Tablet 1000 MG PO (21:33)
[2022-01-13 22:00] VITALS: PULSE 72; RESP 14; O2SAT 91
[2022-01-14] VITALS (8 sets, daily range): BP systolic 133–160; BP diastolic 82–97; PULSE 78–105; RESP 16–18; TEMP 36.6; O2SAT 95–96
[2022-01-14] MEDS: MENTHOL 226.8 GM JAR 1 APPLIC TOPICAL ×2 (01:49→18:11)
[2022-01-14] MEDS: Ipratropium Bromide 0.06% NASAL SPRAY 2 SPRAY NASAL ×3 (01:51→21:34)
[2022-01-14] MEDS: Mag Hydrox/Al Hydrox/Simeth 30 ML UDC PO (03:23)
[2022-01-14] MEDS: Finasteride 5 MG Tablet PO (05:01)
[2022-01-14] MEDS: dilTIAZem CD 120 MG Capsule PO (05:01)
[2022-01-14] MEDS: Loratadine 10 MG Tablet PO (05:01)
[2022-01-14] MEDS: Amiodarone 200 MG Tablet 100 MG PO ×2 (05:02→18:08)
[2022-01-14] MEDS: Metoprolol Tartrate 25 MG Tablet 12.5 MG PO (05:06)
[2022-01-14 05:59] LABS: International Normalized Ratio 1.7; Prothrombin Time (Protime)PT. 19.6 SECONDS (11.7-14.9)
[2022-01-14] MEDS: Ipratropium/Albuterol Sulfate 3 ML AMPUL.NEB INHALATION ×2 (07:35→15:50)
[2022-01-14] MEDS: Tamsulosin HCl 0.4 MG Capsule PO (08:44)
[2022-01-14] MEDS: Vitamin B Comp W-C Capsule 1 CAP PO (08:44)
[2022-01-14] MEDS: Calcium (Elemental) 500 MG Tablet PO ×2 (08:44→18:09)
[2022-01-14] MEDS: Metoprolol Tartrate 25 MG Tablet PO (18:09)
[2022-01-14] MEDS: Acetaminophen 500 MG Tablet 1000 MG PO (19:19)
[2022-01-15 05:50] LABS: Absolute Lymphocyte Count 1.27 X10^3/uL (0.83-4.51); Absolute Neutrophil Count 8.9 X10^3/uL (2.0-7.7); Basophil# 0.08 X10^3/uL; Basophil% 0.7 % (0-1); Eosinophil# 0.24 X10^3/uL; Eosinophils% 2.1 % (0-5); Hematocrit 30.5 % (40-54); Hemoglobin 10.3 g/dL (13.0-16.5); Lymphocyte # 1.27 X10^3/ul (0.83-4.51); Lymphocyte % 11.2 % (19-41); Mean Corp Hgb Conc 33.8 g/dL (32-36); Mean Corpuscular Hgb 35.4 pg (27.0-32.0); Mean Corpuscular Volume 104.8 fL (80-94); Mean Platelet Vol. 9.7 fl (6.2-12.0); Monocyte# 0.79 X10^3/uL; Monocyte% 6.9 % (0-10); NRBC Flagged by Analyzer 0 % (0-5); Neutrophil # 8.86 X10^3/uL (2.7-7.7); Platelet Count 358 K/mm3 (150-450); RBC Distribution Width CV 15.9 % (11.6-14.6); RBC Distribution Width SD 59.9 fl (35.1-43.9); Red Blood Count 2.91 M/mm3 (4.6-6.2); White Blood Count 11.4 K/mm3 (4.4-11.0)
[2022-01-15] MEDS: MENTHOL 226.8 GM JAR 1 APPLIC TOPICAL (05:57)
[2022-01-15] MEDS: Ipratropium Bromide 0.06% NASAL SPRAY 2 SPRAY NASAL (05:58)
[2022-01-15 06:01] VITALS: BP 145/89; PULSE 101
[2022-01-15] MEDS: dilTIAZem CD 120 MG Capsule PO (06:01)
[2022-01-15] MEDS: Amiodarone 200 MG Tablet 100 MG PO ×2 (06:01→17:27)
[2022-01-15] MEDS: Finasteride 5 MG Tablet PO (06:01)
[2022-01-15] MEDS: Loratadine 10 MG Tablet PO (06:01)
[2022-01-15] MEDS: Metoprolol Tartrate 25 MG Tablet PO ×2 (06:01→17:27)
[2022-01-15] MEDS: Acetaminophen 500 MG Tablet 1000 MG PO (06:09)
[2022-01-15 06:19] LABS: Anion Gap 6 (5-15); BUN 39 mg/dL (7-18); BUN/Creat Ratio 21.7 RATIO (10-20); Calcium,Total 8.6 mg/dL (8.5-10.1); Chloride 107 mmol/L (98-107); EST Glomerular Filtration Rate 39 mL/min (>60); Est Glom Filt Rate - Afr Amer 47 mL/min (>60); Estimated Creatinine Clearance 31.67 ml/min; Glucose 88 mg/dL (74-106); Potassium 4.1 mmol/L (3.5-5.1); Sodium Level 138 mmol/L (136-145)
[2022-01-15 07:32] VITALS: PULSE 80; RESP 18; O2SAT 93
[2022-01-15] MEDS: Ipratropium/Albuterol Sulfate 3 ML AMPUL.NEB INHALATION (07:32)
--- NOTE | 2022-01-15 07:33 | CPS ---
PATIENT REQUESTED PRN TREATMENT AT TIME OF VISIT.
[2022-01-15] MEDS: Calcium (Elemental) 500 MG Tablet PO ×2 (08:34→17:25)
[2022-01-15] MEDS: Tamsulosin HCl 0.4 MG Capsule PO (08:34)
[2022-01-15] MEDS: Vitamin B Comp W-C Capsule 1 CAP PO (08:34)
[2022-01-15] MEDS: Tuberculin,Purif.prot.deriv. 50 TU/ML Vial 0.1 ML ID (12:46)
[2022-01-15 16:00] VITALS: BP 119/80; PULSE 96; RESP 16; TEMP 36.6; O2SAT 95
[2022-01-15 17:27] VITALS: PULSE 96
--- NOTE | 2022-01-15 18:07 | NURSING ---
R' AND SISTER, LISHA NOTIFIED OF STAFF MEMBER AND R' TESTING POSITIVE FOR COVID.
[2022-01-15] MEDS: Oxybutynin 5 MG Tablet PO (20:19)
[2022-01-15 23:01] VITALS: PULSE 80; RESP 16; O2SAT 93
[2022-01-16 04:42] VITALS: BP 118/74; PULSE 94
[2022-01-16 04:44] VITALS: BP 118/74; PULSE 94
[2022-01-16] MEDS: Finasteride 5 MG Tablet PO (04:44)
[2022-01-16] MEDS: dilTIAZem CD 120 MG Capsule PO (04:44)
[2022-01-16] MEDS: Loratadine 10 MG Tablet PO (04:44)
[2022-01-16] MEDS: Metoprolol Tartrate 25 MG Tablet PO ×2 (04:44→17:26)
[2022-01-16] MEDS: Amiodarone 200 MG Tablet 100 MG PO ×2 (04:44→17:25)
[2022-01-16 07:40] LABS: Anion Gap 6 (5-15); BUN 47 mg/dL (7-18); BUN/Creat Ratio 25.7 RATIO (10-20); Calcium,Total 8.6 mg/dL (8.5-10.1); Chloride 107 mmol/L (98-107); Creatinine, Serum 1.83 mg/dL (0.70-1.30); EST Glomerular Filtration Rate 38 mL/min (>60); Est Glom Filt Rate - Afr Amer 46 mL/min (>60); Estimated Creatinine Clearance 31.15 ml/min; Glucose 98 mg/dL (74-106); Potassium 4.1 mmol/L (3.5-5.1); Sodium Level 138 mmol/L (136-145)
[2022-01-16 07:50] VITALS: O2SAT 98
[2022-01-16] MEDS: Vitamin B Comp W-C Capsule 1 CAP PO (08:07)
[2022-01-16] MEDS: Calcium (Elemental) 500 MG Tablet PO ×2 (08:07→17:25)
[2022-01-16] MEDS: Tamsulosin HCl 0.4 MG Capsule PO (08:07)
[2022-01-16 09:54] VITALS: PULSE 83; RESP 16; O2SAT 96
[2022-01-16 14:15] VITALS: BP 124/73; PULSE 62; RESP 16; TEMP 36.6; O2SAT 95
[2022-01-16] MEDS: Ipratropium Bromide 0.06% NASAL SPRAY 2 SPRAY NASAL (17:24)
[2022-01-16] MEDS: MENTHOL 226.8 GM JAR 1 APPLIC TOPICAL ×2 (17:24→22:45)
[2022-01-16 17:26] VITALS: PULSE 62
[2022-01-16] MEDS: Oxybutynin 5 MG Tablet PO (19:56)
[2022-01-16] MEDS: Acetaminophen 500 MG Tablet 1000 MG PO (22:44)
[2022-01-17] MEDS: Amiodarone 200 MG Tablet 100 MG PO ×2 (06:33→17:19)
[2022-01-17] MEDS: Finasteride 5 MG Tablet PO (06:33)
[2022-01-17 06:34] VITALS: BP 142/87; PULSE 100
[2022-01-17] MEDS: dilTIAZem CD 120 MG Capsule PO (06:34)
[2022-01-17] MEDS: Metoprolol Tartrate 25 MG Tablet PO ×2 (06:34→17:18)
[2022-01-17] MEDS: Loratadine 10 MG Tablet PO (06:34)
[2022-01-17] MEDS: Tamsulosin HCl 0.4 MG Capsule PO (08:15)
[2022-01-17] MEDS: Calcium (Elemental) 500 MG Tablet PO ×2 (08:15→17:19)
[2022-01-17] MEDS: Vitamin B Comp W-C Capsule 1 CAP PO (08:15)
[2022-01-17 10:01] VITALS: BP 131/83; PULSE 83; RESP 20; TEMP 36.2; O2SAT 96
[2022-01-17 17:18] VITALS: PULSE 83
[2022-01-17] MEDS: MENTHOL 226.8 GM JAR 1 APPLIC TOPICAL (17:18)
[2022-01-17] MEDS: Jantoven 2 MG Tablet PO (17:19)
[2022-01-17] MEDS: Ipratropium Bromide 0.06% NASAL SPRAY 2 SPRAY NASAL (21:53)
[2022-01-17] MEDS: Acetaminophen 500 MG Tablet 1000 MG PO (21:54)
[2022-01-17] MEDS: Oxybutynin 5 MG Tablet PO (21:54)
[2022-01-17 22:00] VITALS: PULSE 91; RESP 18; O2SAT 92
[2022-01-18] MEDS: Finasteride 5 MG Tablet PO (05:19)
[2022-01-18] MEDS: Amiodarone 200 MG Tablet 100 MG PO ×2 (05:19→17:39)
[2022-01-18 05:20] VITALS: BP 130/89; PULSE 90
[2022-01-18] MEDS: Loratadine 10 MG Tablet PO (05:20)
[2022-01-18] MEDS: dilTIAZem CD 120 MG Capsule PO (05:20)
[2022-01-18] MEDS: Metoprolol Tartrate 25 MG Tablet PO ×2 (05:20→17:38)
[2022-01-18] MEDS: MENTHOL 226.8 GM JAR 1 APPLIC TOPICAL ×2 (05:22→14:38)
[2022-01-18 06:00] LABS: International Normalized Ratio 1.8; Prothrombin Time (Protime)PT. 20.4 SECONDS (11.7-14.9)
[2022-01-18] MEDS: Vitamin B Comp W-C Capsule 1 CAP PO (08:39)
[2022-01-18] MEDS: Calcium (Elemental) 500 MG Tablet PO ×2 (08:39→17:39)
[2022-01-18] MEDS: Tamsulosin HCl 0.4 MG Capsule PO (08:39)
[2022-01-18] MEDS: Acetaminophen 500 MG Tablet 1000 MG PO (14:46)
[2022-01-18 14:47] VITALS: BP 129/76; PULSE 87; RESP 14; TEMP 36.5; O2SAT 98
[2022-01-18 17:38] VITALS: BP 129/76; PULSE 87
[2022-01-18] MEDS: Oxybutynin 5 MG Tablet PO (22:36)
[2022-01-19 05:12] VITALS: BP 134/83; PULSE 87
[2022-01-19] MEDS: Loratadine 10 MG Tablet PO (05:12)
[2022-01-19] MEDS: Metoprolol Tartrate 25 MG Tablet PO ×2 (05:12→17:54)
[2022-01-19] MEDS: dilTIAZem CD 120 MG Capsule PO (05:13)
[2022-01-19] MEDS: Amiodarone 200 MG Tablet 100 MG PO ×2 (05:13→17:56)
[2022-01-19] MEDS: Finasteride 5 MG Tablet PO (05:13)
[2022-01-19] MEDS: MENTHOL 226.8 GM JAR 1 APPLIC TOPICAL ×2 (05:15→21:24)
[2022-01-19] MEDS: Vitamin B Comp W-C Capsule 1 CAP PO (09:30)
[2022-01-19] MEDS: Tamsulosin HCl 0.4 MG Capsule PO (09:30)
[2022-01-19] MEDS: Calcium (Elemental) 500 MG Tablet PO ×2 (09:30→17:54)
--- NOTE | 2022-01-19 10:40 | CASEMGMT ---
Social Work Spoke with pt about DC 01/22. Pt agreeable. Recommending outpatient therapy. Pt agreeable and requesting [facility]. Referral made to [email or web address] for PT/OT. No DME needs. Family to transport. Plan: DC home alone 01/22, [facility] PT/OT Roya Sarabia, ROLLED GOLD PLATER EQUIP TECH
[2022-01-19 14:01] VITALS: BP 133/78; PULSE 83; RESP 20; TEMP 36.2
[2022-01-19 14:33] VITALS: O2SAT 99
--- NOTE | 2022-01-19 14:58 | MDS.RN ---
Information for the mds was obtained from review of the clinical record, interview of resident, staff, and direct observation of resident's care.
[2022-01-19 17:54] VITALS: BP 133/78; PULSE 94
[2022-01-19] MEDS: Oxybutynin 5 MG Tablet PO (21:24)
--- NOTE | 2022-01-19 21:48 | PCM.DC.SUM ---
Providers Date of Admission: 01/07/22 Primary Care Physician: Dr. César Chinchilla MD Reason For Visit: SEPSIS DUE TO DIVERTICULITIS Diagnosis Discharge Diagnosis (1) Debility: Status: Acute Code(s): R53.81 - Other malaise (2) Sepsis: Status: Acute Code(s): A41.9 - Sepsis, unspecified organism (3) Acute diverticulitis: Status: Acute Code(s): K57.92 - Diverticulitis of intestine, part unspecified, without perforation or abscess without bleeding (4) Acute kidney injury: Status: Acute Code(s): N17.9 - Acute kidney failure, unspecified (5) Chronic kidney disease, stage 3b: Status: Acute Code(s): N18.32 - Chronic kidney disease, stage 3b (6) Dysphagia: Status: Acute Code(s): R13.10 - Dysphagia, unspecified (7) Aspiration pneumonia: Status: Acute Code(s): J69.0 - Pneumonitis due to inhalation of food and vomit (8) Acute respiratory failure with hypoxia: Status: Acute Code(s): J96.01 - Acute respiratory failure with hypoxia (9) Benign prostatic hyperplasia: Status: Acute Code(s): N40.0 - Benign prostatic hyperplasia without lower urinary tract symptoms (10) Osteoporosis: Status: Acute Code(s): M81.0 - Age-related osteoporosis without current pathological fracture (11) Allergic rhinitis: Status: Acute Code(s): J30.9 - Allergic rhinitis, unspecified (12) Coronary artery disease: Status: Acute Code(s): I25.10 - Atherosclerotic heart disease of [place] coronary artery without angina pectoris (13) Atrial fibrillation: Status: Acute Code(s): I48.91 - Unspecified atrial fibrillation (14) Gastroesophageal reflux disease: Status: Acute Code(s): K21.9 - Gastro-esophageal reflux disease without esophagitis (15) Iron deficiency anemia: Status: Acute Code(s): D50.9 - Iron deficiency anemia, unspecified Medications at Discharge Home Medications finasteride 5 mg tablet 5 mg PO DAILY tab 06/03/20 Prolia 60 mg SQ .[id number] 12/09/20 Osteo Bi-Flex Triple Strength 2 tab PO DAILY 05/06/21 ipratropium bromide 2 spray INTRANASAL PRN PRN 05/06/21 nitroglycerin 0.4 mg SL DAILY 05/06/21 meclizine 25 mg PO TID PRN PRN #30 tab 05/07/21 lidocaine 5 % topical patch 1 patch TOPICAL DAILY 09/18/21 vitamin Bcomplex no.10-folic acid ER 400 mcg tablet,extended release 1 tab PO DAILY 09/18/21 amiodarone 100 mg PO BID 10/19/21 calcium citrate 200 mg (950 mg) tablet 200 mg PO BID tab 11/18/21 fluticasone propionate 50 mcg/actuation nasal spray,suspension 1 spray INTRANASAL BID PRN 11/18/21 tamsulosin 0.4 mg capsule 0.4 mg PO DAILY 11/18/21 vitamin A palmitate-beta carotene 25,000 unit (15K-10K unit) tablet 1 tab PO DAILY tab 11/18/21 warfarin 2 mg tablet 2 mg PO .COMPLEX tab 11/18/21 warfarin 4 mg tablet 4 mg PO .COMPLEX tab 11/18/21 diltiazem HCl 120 mg PO DAILY 01/07/22 loratadine 10 mg PO DAILY 01/07/22 acetaminophen 1,000 mg PO Q6H PRN PRN #0 tab 01/19/22 acidophilus-pectin, citrus 1 tab PO BID #0 tab 01/19/22 metoprolol tartrate 25 mg PO BID 30 Days #60 tab 01/19/22 oxybutynin chloride 5 mg PO QHS 30 Days #30 tab 01/19/22 Hospital Course Operations None Procedures None Summary of Care Provided Minutes Spent on Discharge: 35 Hospital Course: 81 year old male with below past medical history hospitalized for sepsis secondary to diverticulitis, complicated by acute kidney injury, dysphagia, aspiration pneumonia, admitted to TCU with debility, here for rehabilitation, strengthening, prior to discharge home alone. Discharge home alone 01/22/2022, [facility] PT/OT. Physical Exam Const alert General Appearance: cooperative HEENT normocephalic Eyes PERRL and EOMs intact bilaterally Neck supple, no JVD and no carotid bruits Resp normal respiratory effort, normal air movement and clear to auscultation bilaterally Cardio regular rate and regular rhythm GI normal to inspection, nondistended, normoactive bowel sounds, non-tender and non-distended Extremity normal capillary refill General Extremity: Negative for edema Skin no rashes or lesions noted General Skin Exam: no breakdown Psych affect normal Appearance: appropriate Weight / BMI Weight Weight: 70.035 kg Body Mass Index (BMI) 23.6 ABG / Lab / Microbiology Data Result Diagrams: 01/15/22 05:15 01/16/22 06:25 Microbiology: Microbiology 01/18/22 14:36 Nasal Secretion SARS-CoV-2 Antigen (Rapid) - Final 01/14/22 16:00 Nasal Secretion SARS-CoV-2 Antigen (Rapid) - Final D/C Instructions Discharge Diet: No restrictions Discharge Activity: Return to Normal Activity, May Shower and Use Walker Weight Bearing Status: Weight bearing as tolerated Call your doctor if you observe: Fever of 101 or Higher, Inability to urinate, Inability to have a bowel movement, Shortness of breath, Dizziness, Fainting spells, Swelling in the ankles, Chest pain and Uncontrolled pain Additional Instructions: Discharge home alone 01/22/2022, [facility] PT/OT. Meaningful Use Info Meaningful Use Diagnoses (Choose all that apply): None applicable Discharge Plan Admission Admit Date/Time: 01/07/22 17:12 Primary Reason for Your Visit: Debility. Attending Provider: Marcus Samuel Chi Primary Care Provider: César Chinchilla Instructions Additional Instructions / Restrictions: Discharge home alone 01/22/2022, [facility] PT/OT. Discharge Orders/Prescriptions Prescriptions: New acetaminophen 500 mg Tablet 1,000 mg PO Q6H PRN PRN (Reason: Pain Score 1-10) Qty: 0 RF: 0 oxybutynin chloride 5 mg Tablet 5 mg PO QHS 30 Days Qty: 30 RF: 0 metoprolol tartrate 25 mg Tablet 25 mg PO BID 30 Days Qty: 60 RF: 0 acidophilus-pectin, citrus 25 million cell -100 mg Tablet 1 tab PO BID Qty: 0 RF: 0 Continued finasteride [Proscar] 5 mg tablet 5 mg PO DAILY RF: 0 warfarin 4 mg tablet 4 mg PO .COMPLEX RF: 0 lidocaine 5 % adhesive patch,medicated 1 patch topical DAILY RF: 0 vitamin B complex no.10-FA 400 mcg tablet extended release 1 tab PO DAILY RF: 0 fluticasone propionate 50 mcg/actuation spray,suspension 1 spray intranasal BID PRN (Reason: Congestion) RF: 0 tamsulosin 0.4 mg capsule 0.4 mg PO DAILY RF: 0 vitamin a [id number] 25,000 unit (15K-10K unit) tablet 1 tab PO DAILY RF: 0 Prolia 60 MG/ML syringe 60 mg SQ .[id number] RF: 0 calcium citrate 200 mg (950 mg) tablet 200 mg PO BID RF: 0 ipratropium bromide 21 mcg (0.03 %) [place],Non-Aerosol 2 spray INTRANASAL PRN PRN (Reason: SOB) RF: 0 Osteo Bi-Flex Triple Strength 750 mg-644 mg- 30 mg-1 mg Tablet 2 tab PO DAILY RF: 0 nitroglycerin 0.4 mg tablet, sublingual 0.4 mg SL DAILY RF: 0 meclizine 25 mg Tablet 25 mg PO TID PRN PRN (Reason: Dizziness) Qty: 30 RF: 0 warfarin 2 mg tablet 2 mg PO .COMPLEX RF: 0 amiodarone 200 mg tablet 100 mg PO BID RF: 0 diltiazem HCl 120 mg capsule,extended release 24hr 120 mg PO DAILY RF: 0 loratadine 10 mg tablet 10 mg PO DAILY RF: 0 Discontinued metoprolol tartrate 25 mg tablet 12.5 mg PO BID RF: 0 ipratropium-albuterol 0.5 mg-3 mg(2.5 mg base)/3 mL solution for nebulization 3 ml inhalation Q4HWA.RT RF: 0 amoxicillin-pot clavulanate 875-125 mg tablet 875 mg PO BID RF: 0 Referrals / Follow Up: César Chinchilla MD [Primary Care Provider] - Disposition Disposition (needs filled in before D/C Order can be placed): Home, Self Care
[2022-01-19 23:31] VITALS: PULSE 83; RESP 16
[2022-01-20] MEDS: Acetaminophen 500 MG Tablet 1000 MG PO ×2 (02:43→21:07)
[2022-01-20] MEDS: dilTIAZem CD 120 MG Capsule PO (05:38)
[2022-01-20] MEDS: Amiodarone 200 MG Tablet 100 MG PO ×2 (05:38→17:52)
[2022-01-20] MEDS: Finasteride 5 MG Tablet PO (05:38)
[2022-01-20] MEDS: Loratadine 10 MG Tablet PO (05:38)
[2022-01-20 05:39] VITALS: BP 117/72; PULSE 85
[2022-01-20] MEDS: Metoprolol Tartrate 25 MG Tablet PO ×2 (05:39→17:51)
[2022-01-20] MEDS: Lidocaine 5% Patch 1 PATCH TOPICAL (05:40)
[2022-01-20] MEDS: Calcium (Elemental) 500 MG Tablet PO ×2 (08:21→17:52)
[2022-01-20] MEDS: Vitamin B Comp W-C Capsule 1 CAP PO (08:21)
[2022-01-20] MEDS: Tamsulosin HCl 0.4 MG Capsule PO (08:22)
[2022-01-20] MEDS: MENTHOL 226.8 GM JAR 1 APPLIC TOPICAL ×2 (15:07→23:44)
[2022-01-20 15:10] VITALS: BP 132/78; PULSE 76; RESP 16; TEMP 36.7; O2SAT 97
[2022-01-20 17:51] VITALS: BP 126/82; PULSE 88
[2022-01-20] MEDS: Ipratropium Bromide 0.06% NASAL SPRAY 2 SPRAY NASAL (21:07)
[2022-01-20] MEDS: Oxybutynin 5 MG Tablet PO (21:08)
[2022-01-20] MEDS: Mag Hydrox/Al Hydrox/Simeth 30 ML UDC PO (23:42)
[2022-01-21] MEDS: Mag Hydrox/Al Hydrox/Simeth 30 ML UDC PO ×2 (04:53→09:51)
[2022-01-21] MEDS: Amiodarone 200 MG Tablet 100 MG PO ×2 (04:54→17:44)
[2022-01-21] MEDS: dilTIAZem CD 120 MG Capsule PO (04:55)
[2022-01-21] MEDS: Loratadine 10 MG Tablet PO (04:55)
[2022-01-21] MEDS: Finasteride 5 MG Tablet PO (04:56)
[2022-01-21 04:58] VITALS: BP 148/82; PULSE 101
[2022-01-21] MEDS: Metoprolol Tartrate 25 MG Tablet PO ×2 (04:58→17:43)
[2022-01-21] MEDS: MENTHOL 226.8 GM JAR 1 APPLIC TOPICAL ×2 (05:00→09:51)
[2022-01-21 06:11] LABS: International Normalized Ratio 1.4; Prothrombin Time (Protime)PT. 16.6 SECONDS (11.7-14.9)
[2022-01-21] MEDS: Calcium (Elemental) 500 MG Tablet PO ×2 (07:43→17:44)
[2022-01-21] MEDS: Vitamin B Comp W-C Capsule 1 CAP PO (07:43)
[2022-01-21] MEDS: Tamsulosin HCl 0.4 MG Capsule PO (07:44)
[2022-01-21 10:50] VITALS: BP 126/78; PULSE 85; RESP 18; TEMP 36.3; O2SAT 95
--- NOTE | 2022-01-21 10:57 | CASEMGMT ---
Social Work BIMS and PHQ-9 completed for MDS assessment. Roya Sarabia, SUPERVISOR OV[employer] DIGITAL ASSOCIATE MEDIA DIRECTOR
--- NOTE | 2022-01-21 11:55 | NURSING ---
PT states that he is suppose to be on thyroid medication but can't remember medication name. notified Dr César Chinchilla office, he is suppose to be on levothyroxine 25mcg daily. Last TSH 01/05/[address] update Dr hess.
--- NOTE | 2022-01-21 14:06 | MDS.RN ---
Pain interview for devon 01/22/22 done
[2022-01-21 17:43] VITALS: PULSE 88
[2022-01-21] MEDS: Oxybutynin 5 MG Tablet PO (21:17)
[2022-01-21] MEDS: Ipratropium Bromide 0.06% NASAL SPRAY 2 SPRAY NASAL (21:17)
[2022-01-21 21:53] VITALS: RESP 16
[2022-01-22 05:48] LABS: Absolute Lymphocyte Count 1.15 X10^3/uL (0.83-4.51); Absolute Neutrophil Count 6.8 X10^3/uL (2.0-7.7); Basophil# 0.08 X10^3/uL; Basophil% 0.9 % (0-1); Eosinophils% 2.2 % (0-5); Hematocrit 30.8 % (40-54); Hemoglobin 10.1 g/dL (13.0-16.5); Lymphocyte # 1.15 X10^3/ul (0.83-4.51); Lymphocyte % 12.5 % (19-41); Mean Corp Hgb Conc 32.8 g/dL (32-36); Mean Corpuscular Hgb 34.6 pg (27.0-32.0); Mean Corpuscular Volume 105.5 fL (80-94); Mean Platelet Vol. 9.5 fl (6.2-12.0); Monocyte# 0.96 X10^3/uL; Monocyte% 10.4 % (0-10); NRBC Flagged by Analyzer 0 % (0-5); Neutrophil # 6.76 X10^3/uL (2.7-7.7); Neutrophil % 73.3 % (47-70); Platelet Count 471 K/mm3 (150-450); RBC Distribution Width CV 15.2 % (11.6-14.6); Red Blood Count 2.92 M/mm3 (4.6-6.2); White Blood Count 9.2 K/mm3 (4.4-11.0)
[2022-01-22 06:09] LABS: Anion Gap 5 (5-15); BUN 37 mg/dL (7-18); BUN/Creat Ratio 18.7 RATIO (10-20); Calcium,Total 8.3 mg/dL (8.5-10.1); Chloride 107 mmol/L (98-107); Creatinine, Serum 1.98 mg/dL (0.70-1.30); EST Glomerular Filtration Rate 35 mL/min (>60); Est Glom Filt Rate - Afr Amer 42 mL/min (>60); Estimated Creatinine Clearance 28.79 ml/min; Glucose 80 mg/dL (74-106); Sodium Level 140 mmol/L (136-145)
[2022-01-22 07:02] VITALS: BP 125/85; PULSE 89
[2022-01-22] MEDS: dilTIAZem CD 120 MG Capsule PO (07:02)
[2022-01-22] MEDS: Metoprolol Tartrate 25 MG Tablet PO (07:02)
[2022-01-22] MEDS: Mag Hydrox/Al Hydrox/Simeth 30 ML UDC PO (07:02)
[2022-01-22] MEDS: Levothyroxine 25 MCG TABLET PO (07:02)
[2022-01-22] MEDS: Loratadine 10 MG Tablet PO (07:03)
[2022-01-22] MEDS: Amiodarone 200 MG Tablet 100 MG PO (07:03)
[2022-01-22] MEDS: Finasteride 5 MG Tablet PO (07:04)
[2022-01-22 08:12] VITALS: BP 125/85; PULSE 89; RESP 16; TEMP 36.7; O2SAT 96
[2022-01-22] MEDS: Tamsulosin HCl 0.4 MG Capsule PO (09:11)
[2022-01-22] MEDS: Vitamin B Comp W-C Capsule 1 CAP PO (09:11)
[2022-01-22] MEDS: Calcium (Elemental) 500 MG Tablet PO (09:11)
[2022-01-22 10:00] VITALS: PULSE 81; RESP 18; O2SAT 99
== END 2022-01-22 10:37 | disposition home or self-care (01) | DRG 178 ==
PROVIDERS: Admitting Provider Family Medicine Geriatric Medicine; PCP Family Medicine; Visit Provider Family Medicine Geriatric Medicine
DX: J69.0 Pneumonitis due to inhalation of food and vomit (principal); K57.92 Diverticulitis of intestine, part unspecified, without perforation or abscess without bleeding; I27.21 Secondary pulmonary arterial hypertension; I48.91 Unspecified atrial fibrillation; N18.32 Chronic kidney disease, stage 3b; K21.9 Gastro-esophageal reflux disease without esophagitis; N40.0 Benign prostatic hyperplasia without lower urinary tract symptoms; D50.9 Iron deficiency anemia, unspecified; I25.10 Atherosclerotic heart disease of native coronary artery without angina pectoris; E78.5 Hyperlipidemia, unspecified; I25.2 Old myocardial infarction; M19.90 Unspecified osteoarthritis, unspecified site; H81.10 Benign paroxysmal vertigo, unspecified ear; R13.10 Dysphagia, unspecified; Z79.899 Other long term (current) drug therapy; Z79.01 Long term (current) use of anticoagulants; M81.0 Age-related osteoporosis without current pathological fracture; Z23 Encounter for immunization
CPT/HCPCS: 36415; 80048; 85025; 85610; 87426; 92507; 92523; 92526; 92610; 94640; 97110; 97116; 97162; 97165; 97530; 97535; 97802; G0009; 90670

== ENCOUNTER → 2022-01-29 | Outpatient (CLI) | payer MEDICARE, OTHER, SELFPAY ==
--- NOTE | 2022-01-29 15:10 | RAD_ITS ---
STUDY: X-RAY CHEST REASON FOR EXAM: Male, 81 years old. Fever and cough TECHNIQUE: PA and lateral views of the chest. COMPARISON: 01/06/2022 FINDINGS: Hyperexpanded with chronic interstitial changes but no superimposed acute pulmonary process. Previously noted atelectasis has resolved There is no demonstrated pleural abnormality. Normal size heart. Normal mediastinum and nasrin. Normal visualized pulmonary arteries. Normal visualized aortic arch and descending thoracic aorta. Extensive degenerative bony changes again noted with multiple stable vertebroplasties . Normal visualized ribs, clavicles, and shoulders. There is no demonstrated abnormality of the visualized soft tissue structures of the upper abdomen. RAD/Chest PA and Lateral IMPRESSION: Hyperexpanded lungs without a superimposed acute pulmonary process Extensive degenerative bony changes Electronically Signed: Joe Jennings MD at 13:05 EDT ,
[2022-01-29 17:37] LABS: Absolute Lymphocyte Count 0.71 X10^3/uL (0.83-4.51); Absolute Neutrophil Count 6.2 X10^3/uL (2.0-7.7); Basophil# 0.05 X10^3/uL; Basophil% 0.6 % (0-1); Eosinophil# 0.13 X10^3/uL; Eosinophils% 1.6 % (0-5); Hemoglobin 10.5 g/dL (13.0-16.5); Lymphocyte # 0.71 X10^3/ul (0.83-4.51); Lymphocyte % 8.8 % (19-41); Mean Corp Hgb Conc 32.8 g/dL (32-36); Mean Corpuscular Hgb 35.1 pg (27.0-32.0); Mean Platelet Vol. 10.2 fl (6.2-12.0); Monocyte# 0.92 X10^3/uL; Monocyte% 11.4 % (0-10); NRBC Flagged by Analyzer 0 % (0-5); Neutrophil # 6.24 X10^3/uL (2.7-7.7); Neutrophil % 77.1 % (47-70); Platelet Count 302 K/mm3 (150-450); RBC Distribution Width CV 15.5 % (11.6-14.6); Red Blood Count 2.99 M/mm3 (4.6-6.2); White Blood Count 8.1 K/mm3 (4.4-11.0)
[2022-01-29 17:59] LABS: ALB/GLOB Ratio 0.7 RATIO (0.9-2.4); AST(SGOT) 28 U/L (15-37); Alanine Aminotransfer ALT/SGPT 48 U/L (16-61); Albumin, Serum 3.2 g/dL (3.2-5.0); Alkaline Phosphatase 66 U/L (45-117); Anion Gap 8 (5-15); BUN 30 mg/dL (7-18); BUN/Creat Ratio 15.3 RATIO (10-20); Chloride 110 mmol/L (98-107); Creatinine, Serum 1.96 mg/dL (0.70-1.30); EST Glomerular Filtration Rate 35 mL/min (>60); Est Glom Filt Rate - Afr Amer 43 mL/min (>60); Globulin 4.4 g/dL (2.2-4.2); Glucose 114 mg/dL (74-106); Potassium 3.9 mmol/L (3.5-5.1); Protein, Total 7.6 g/dL (6.4-8.2); Sodium Level 140 mmol/L (136-145)
== END | disposition home or self-care (01) ==
PROVIDERS: PCP Family Medicine; Visit Provider Family Medicine
DX: R05.9 Cough, unspecified (principal)
CPT/HCPCS: 36415; 71046; 80053; 85025; 86140

== ENCOUNTER 2022-02-08 13:13 | Outpatient (RCR) | payer MEDICARE, OTHER, SELFPAY ==
[2022-02-08 15:22] LABS: Absolute Lymphocyte Count 0.75 X10^3/uL (0.83-4.51); Absolute Neutrophil Count 6.5 X10^3/uL (2.0-7.7); Basophil# 0.04 X10^3/uL; Basophil% 0.5 % (0-1); Eosinophils% 1.2 % (0-5); Hematocrit 31.4 % (40-54); Hemoglobin 10.1 g/dL (13.0-16.5); Lymphocyte # 0.75 X10^3/ul (0.83-4.51); Lymphocyte % 9.2 % (19-41); Mean Corp Hgb Conc 32.2 g/dL (32-36); Mean Corpuscular Hgb 33.3 pg (27.0-32.0); Mean Corpuscular Volume 103.6 fL (80-94); Mean Platelet Vol. 9.7 fl (6.2-12.0); Monocyte# 0.72 X10^3/uL; Monocyte% 8.8 % (0-10); NRBC Flagged by Analyzer 0 % (0-5); Neutrophil # 6.53 X10^3/uL (2.7-7.7); Neutrophil % 79.7 % (47-70); Platelet Count 334 K/mm3 (150-450); RBC Distribution Width CV 15.1 % (11.6-14.6); RBC Distribution Width SD 57.7 fl (35.1-43.9); Red Blood Count 3.03 M/mm3 (4.6-6.2); White Blood Count 8.2 K/mm3 (4.4-11.0)
[2022-02-08 15:31] LABS: International Normalized Ratio 2.2; Prothrombin Time (Protime)PT. 23.7 SECONDS (11.7-14.9)
[2022-02-08 16:03] LABS: ALB/GLOB Ratio 0.8 RATIO (0.9-2.4); AST(SGOT) 34 U/L (15-37); Alanine Aminotransfer ALT/SGPT 43 U/L (16-61); Albumin, Serum 3.4 g/dL (3.2-5.0); Alkaline Phosphatase 56 U/L (45-117); Anion Gap 7 (5-15); BUN 31 mg/dL (7-18); BUN/Creat Ratio 16.1 RATIO (10-20); Calcium,Total 8.6 mg/dL (8.5-10.1); Chloride 108 mmol/L (98-107); Creatinine, Serum 1.93 mg/dL (0.70-1.30); EST Glomerular Filtration Rate 36 mL/min (>60); Est Glom Filt Rate - Afr Amer 43 mL/min (>60); Globulin 4.2 g/dL (2.2-4.2); Glucose 96 mg/dL (74-106); Protein, Total 7.6 g/dL (6.4-8.2); Sodium Level 138 mmol/L (136-145)
== END 2022-02-08 23:59 | disposition home or self-care (01) ==
LOC: LAB 13:13
PROVIDERS: PCP Family Medicine; Referring Provider Internal Medicine Cardiovascular Disease; Visit Provider Internal Medicine Cardiovascular Disease
DX: I48.0 Paroxysmal atrial fibrillation (principal); R05.9 Cough, unspecified; Z79.01 Long term (current) use of anticoagulants
CPT/HCPCS: 36415; 80053; 85025; 85610; 86141

== ENCOUNTER → 2022-02-16 | Outpatient (CLI) | payer MEDICARE, OTHER, SELFPAY ==
--- NOTE | 2022-02-16 19:15 | STRESSREP ---
Stress Test Report Pharmacologic myocardial perfusion stress test. 81-year-old man with a history of coronary artery disease. Resting EKG demonstrates atrial flutter with a rate of 92 bpm. 0.4 mg of regadenoson was infused per usual protocol followed by rapid intravenous saline flush injection continuous EKG monitoring was performed. The maximum heart rate attained was 107 bpm which was 76% of max impacted heart rate the maximum workload was 1 metabolic equivalent. At rest there were no ST or T wave changes noted to suggest abnormal flow reserve and at peak infusion nonspecific ST changes were noted with did not meet the criteria for ischemia. No clinical angina was noted. The peak blood pressure was 144/100 mmHg. Myocardial perfusion protocol. 11.8 mCi of technetium 99m sestamibi was injected at rest. 0.4 mg of regadenoson was infused per usual protocol. At peak infusion 33.5 mCi of technetium 99m sestamibi was injected stress images were obtained stress and rest images were reconstructed and compared in the short axis vertical long and horizontal long axis. Gated images were also obtained. Perfusion SPECT analysis: Review of the stress images demonstrate normal uptake of tracer noted in all areas of the myocardium. The resting images similarly demonstrate normal uptake of tracer noted in all areas of the myocardium. No areas of reversibility are noted to suggest ischemia and no previous infarct is noted. Gated SPECT analysis: The gated ejection fraction is noted to be 54%. Conclusion: Normal pharmacologic myocardial perfusion stress test. Preserved ejection fraction.
== END | disposition home or self-care (01) ==
LOC: CVS 05:54
PROVIDERS: PCP Family Medicine; Referring Provider Nurse Practitioner Family; Visit Provider Nurse Practitioner Family
DX: I25.10 Atherosclerotic heart disease of native coronary artery without angina pectoris (principal); I50.32 Chronic diastolic (congestive) heart failure; I27.21 Secondary pulmonary arterial hypertension; I11.0 Hypertensive heart disease with heart failure; I47.2 Ventricular tachycardia; I48.91 Unspecified atrial fibrillation; I48.4 Atypical atrial flutter; R53.83 Other fatigue; R06.00 Dyspnea, unspecified; E78.5 Hyperlipidemia, unspecified; Z95.5 Presence of coronary angioplasty implant and graft
CPT/HCPCS: 78452; 93017; A9500; A4216; J2785

== ENCOUNTER 2022-02-22 14:30 | Outpatient (RCR) | payer MEDICARE, OTHER, SELFPAY ==
--- NOTE | 2022-01-28 08:30 | HP.OTEVAL_ITS ---
Patient's Visit Information RICHIE HANSEN is a 81 year old M, referred to Occupational Therapy by Dr. Marcus Samuel MD, with a diagnosis of debility, aspiration PNA, sepsis. Date of Evaluation: 01/27/22 Occupational Therapist: Anjali Valdovinos, WILBER/Real, CHT - Subjective Pt. is an 81 y/o male who was referred by Dr. Samuel for debility, aspiration PNA, sepsis. Pt. reporting that he does not have a modified diet. Pt. reporting that he feels weak, SOB, and left foot pain from arthritis. 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 - ADLs Comments: no issues Household: Vacuum Comments: gets SOB with vacuuming Comments: Pt. reports that he has had no difficulties with basic ADL's. wears on orthotic/brace on L ankle for stability. Lives in a senior community independent, they care for the lawn. [address] has a work out gym in basement, but has difficulty with stairs secondary to L ankle. He did not come to this evaluation with a walking device. walks dog (13 y/o shitzu) around the block. 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 therapist suggested walking dog during cooler hours, starting with smaller grocery stores and gradually going to bigger stores. - Pain Left Foot 2 Pain Intensity Range: 7 - ROM ROM Comments: ROM WFL's on BUE's, including hands/fingers. - Strength Shoulder: R 23.7# L23.4# Elbow: R21.9# L 19.6# Payroll Manager: L 80#R 65# Lateral Pinch: L 18# R 14# Tripod Pinch: L 20# R 18# Tip-to-Tip Pinch: L 10# R 10# Strength Comments: pt. reporting that he has always been stronger on his LUE - Sensation Sensation Comments: pt. reported no deficits with sensation (hot, cold, numbness) Per pt. pain in L wrist secondary to arthritis. - Quick DASH-Disab of Arm,Shoulder& Hand Quick DASH Score: 27.2725 - Goals Goal:: Pt. to increase UB strength by 5# (R public finance specialist from 65# to 70#) to complete gardening tasks by dc. Goal:: Educate and provide handout to pt. on energy conservation techniques with IADL tasks within 2 weeks. Goal:: Pt goal: Pt. to report having less SOB episodes throughout the day with regular daily tasks by dc. Goal:: Pt. to demonstrate HEP (using free weights) without vc's by dc. - Rehabilitation General Assessment: Pt. was referred by Dr. Samuel for debility, aspiration PNA, sepsis after recent dc from TCU (1 week stay). No surgery was completed. Educated pt. on what to expect with OT treatments for strengthening and endurance. Pt. reporting that he feels weak and SOB with increased activity. He would benefit from skilled OT services 2x a week for 6 weeks to improve activity tolerance and strengthening for ADL activities and IADL's. Pt. demo'd understanding & agreeable to POC. Therapy session was directly supervised and Doc. reviewed and approved by Anjali MERINO/Real,CHT. Rehabilitation Potential: Good - Anticipated Interventions Strengthening, Joint Protection/Energy Conservation, Ergonomic Education, Education re Diagnosis, Home Program - Visit Plan Frequency: 1-2x /Week Duration: 6 Weeks TEXT: Thank you for the opportunity to evaluate your patient. For Medicare and Medicare HMO plans, please review the plan of care and approve it. It will need to be FAXED BACK to us at [phone] for Medicare purposes. Please let me know if there are questions or concerns regarding this plan of care. Physician Signature: Date:
--- NOTE | 2022-01-28 12:23 | HP.PTEVAL ---
Patient's Visit Information RICHIE HANSEN is a 81 year old M referred to Physical Therapy by Dr. Marcus Samuel MD with a diagnosis of DEBITY ,SEPSIS ,ASPIRATION. Date of Evaluation: 01/28/22 Physical Therapist: Bebo Shin, PT, Cert MDT, OCS - Visit Plan Frequency: 2x /Week Duration: 6 Weeks Plan: PT INTERVETIONS ENDURANCE PROGRAM ,BALANCE PROGRAM ,STRENGTHENING BLE AND FUNCTIONAL STRENGTHNEING - Subjective This 81 male presents to physical therapy with debility .Patient developed lower bowel infection admitted to [facility] 3.5 weeks ago 0n 01/02/22 vomiting ,abdominal pain found to have diverticulitis went into sepsis , patient also developed pneumonia with acute raspatory failure. Patient had dysphagia and initially on 4 L02 weaned to 2 L02 .Then went TCU for Rehab for ~ 1 week then d/c to home with cane occasionally. Patient lives alone 1 story floor non steps ,walk in shower seat and grab rails. Patient is cooking ,cleaning. Patient does have some difficulty breathing with SOB . Patient has Lumbar pain when laying. Denies paresthesia/tingling. Patient has difficulty sleeping. Patient has difficulty generalized ADL's and housework tasks . Patient has generalized weakness and function . SOCIAL: . VOCATION: retired - Pain Bilateral Back Pain Intensity (Out of 10): 5 Pain Intensity Range: 10 - Objective POSTURE: mild forward posture. GAIT: reciprocal pattern mild unsteady with brace hinge ankle. BALANCE: good -. STAIRS: one steps a time with rail. MMT: quads 4/5,hamstrings 4/5,ankle 4/5 ,hip abduction 4-5. - Balance/Special Test Scores Functional Gait Assessment Score: 24 % Disability: 20.0000 CATSIB Score (Max score 120 seconds): 100 Lower Extremity Functional Score: 27 30 Second Chair Rise Test Seconds: 8 - Goals Goal 1:: Patient to be I with HEP Goal Time Frame: 4-6 Weeks Goal 2:: Patient improve 30sec sit-stand by 10-12 reps to improve transfers with UE Goal Time Frame: 4-6 Weeks Goal 3:: Patient to improve CATSIBE by 5 points to improve balance Goal Time Frame: 4-6 Weeks Goal 4:: Patient to improve functional gait assessment by 5 points to improve function and strength Goal Time Frame: 4-6 Weeks Goal 5:: Patient to improve LFES score by 10 points to improve QOL and function Goal Time Frame: 4-6 Weeks - Rehabilitation Potential Physical Therapy Diagnosis: This patient had extensive hospital stay with developing sepsis affects function weakness and balance as well as comorbities thus will influences condition thus will need skilled PT Rehabilitation Potential: Good - Anticipated Interventions Patient/Client Instruction: Educate patient on: Condition, Plan of Care For the Purpose of:: To decrease pain, To improve muscle performance and motor function, To improve ability to perform ADL's, To increase tolerance to activity/condition/position, To improve performance and independence with ADL's, To improve ability of physical actions for home/community/work/leisure, To improve gait and locomotor functions, To improve endurance, To improve balance Therapeutic Exercise to Include: Strength training, Endurance training, Balance training, Gait and locomotor training, Active ROM Comment: BLE For the Purpose of:: To decrease pain, To improve muscle performance and motor function, To improve ability to perform ADL's, To increase tolerance to activity/condition/position, To improve performance and independence with ADL's, To improve ability of physical actions for home/community/work/leisure, To improve gait and locomotor functions, To increase flexibility/ROM, To improve endurance, To improve balance, To improve tolerance to ADL's Thank you for the opportunity to evaluate your patient. For Medicare and Medicare HMO plans, please review the plan of care and approve it. It will need to be FAXED BACK to us at [phone] for Medicare purposes. For Medicare only, by signing this I certify the plan of care. Please let me know if there are questions or concerns regarding this plan of care. Physician Signature: Date:
== END 2022-02-22 19:00 | disposition home or self-care (01) ==
LOC: PT 14:30
PROVIDERS: PCP Family Medicine; Referring Provider Family Medicine Geriatric Medicine; Visit Provider Family Medicine
DX: R53.81 Other malaise (principal); Z87.01 Personal history of pneumonia (recurrent); Z86.19 Personal history of other infectious and parasitic diseases
CPT/HCPCS: 97110; 97162; 97165; 97530

== ENCOUNTER 2022-02-23 12:48 | Emergency (ER) | payer MEDICARE, OTHER, SELFPAY ==
[2022-02-23 12:50] VITALS: BP 132/89; PULSE 76; RESP 14; TEMP 36; O2SAT 98; BMI 23.1
--- NOTE | 2022-02-23 13:43 | EDS_ITS ---
HPI History of Present Illness Chief Complaint: Complaint Detail of Chief Complaint: Urinary frequency Informant: patient Narrative Narrative: Patient presents to the emergency department complaint of urinary frequency that started last evening. Patient states he was up multiple times throughout the night to urinate. He denies any hematuria. He had some mild discomfort in his back. Patient called his primary care physician who advised him to come to the emergency department to get evaluated. Patient has occasional mild dysuria. He denies any fevers. He has had no vomiting. Prior similar symptoms: Yes PFSH PFSH Medical History Acute blood loss anemia Acute diverticulitis of intestine Acute gastrointestinal bleeding Atherosclerotic heart disease of [place] coronary artery without angina pectoris Atrial fibrillation Atypical atrial flutter (12/2020) Benign prostatic hyperplasia BPH (benign prostatic hyperplasia) Cancer Chronic heart failure with preserved ejection fraction (HFpEF) Chronic kidney disease Chronic renal insufficiency CPAP (continuous positive airway pressure) dependence Debility Dysphagia Elevated liver enzymes Essential (primary) hypertension GERD (gastroesophageal reflux disease) GI bleed (2012) History of colon polyps History of hyperthyroidism HLD (hyperlipidemia) Hypertension Kidney disease Kidney stones Myocardial infarct Non-rheumatic tricuspid valve insufficiency Non-smoker Nonrheumatic mitral (valve) insufficiency 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 Osteoarthritis Paroxysmal atrial fibrillation Secondary pulmonary arterial hypertension Sleep apnea Stage 3b chronic kidney disease Thoracic aortic aneurysm (TAA) Home Medications finasteride 5 mg tablet (Proscar) 5 mg PO DAILY prostate 06/03/20 [History Last Taken 01/20/21] denosumab 60 mg/mL subcutaneous syringe (Prolia) 60 mg SQ .[id number] BONES 12/09/20 [History Last Taken 12/05/20] glucosamine 750 [id number] no1 644 mg-C 30 mg-pamela 1 mg tablet (Osteo Bi-Flex Triple Strength) 2 tab PO DAILY bone health 05/06/21 [History Last Taken Unknown] ipratropium bromide 21 mcg (0.03 %) nasal spray 2 spray intranasal PRN PRN SOB 05/06/21 [History Last Taken Unknown] meclizine 25 mg tablet 25 mg PO TID PRN PRN Dizziness #30 tabs 05/07/21 [Rx Last Taken Unknown] vitamin Bcomplex no.10-folic acid ER 400 mcg tablet,extended release 1 tab PO DAILY supplement 09/18/21 [History Last Taken Unknown] amiodarone 200 mg tablet 100 mg PO BID heart rate 10/19/21 [History Last Taken 01/07/22 08:52] fluticasone propionate 50 mcg/actuation nasal spray,suspension 1 spray intranasal BID PRN Congestion 11/18/21 [History Last Taken Unknown] tamsulosin 0.4 mg capsule 0.4 mg PO DAILY bladder 11/18/21 [History Last Taken Unknown] vitamin A palmitate-beta carotene 25,000 unit (15K-10K unit) tablet 1 tab PO DAILY supplement 11/18/21 [History Last Taken Unknown] warfarin 2 mg tablet 2 mg PO .COMPLEX blood thinner 11/18/21 [History Last Taken Unknown] warfarin 4 mg tablet 4 mg PO .COMPLEX BLOOD THINNER 11/18/21 [History Last Taken Unknown] diltiazem HCl 120 mg capsule,extended release 24 hr 120 mg PO DAILY heart 01/07/22 [History Last Taken 01/07/22 08:51] loratadine 10 mg tablet 10 mg PO DAILY allergies 01/07/22 [History Last Taken Unknown] acetaminophen 500 mg tablet 1,000 mg PO Q6H PRN PRN Pain Score 1-10 #0 tabs 01/19/22 [Rx Last Taken Unknown] acidophilus 25 million cell-pectin, citrus 100 mg tablet 1 tab PO BID #0 tabs 01/19/22 [Rx Last Taken Unknown] metoprolol tartrate 25 mg tablet 25 mg PO BID 30 days #60 tabs 01/19/22 [Rx Last Taken Unknown] oxybutynin chloride 5 mg tablet 5 mg PO QHS 30 days #30 tabs 01/19/22 [Rx Last Taken Unknown] nitroglycerin 0.4 mg sublingual tablet See Rx Instructions .Route .COMPLEX #25 TABLETS 02/02/22 [Rx Last Taken Unknown] calcium carbonate 500 mg calcium (1,250 mg) tablet 500 mg PO BID 02/17/22 [History Last Taken Unknown] furosemide 40 mg tablet 40 mg PO DAILY PRN 02/17/22 [History Last Taken Unknown] levothyroxine 25 mcg tablet 25 mcg PO DAILY 02/17/22 [History Last Taken Unknown] lidocaine 5 % topical patch 1 patch topical DAILY PRN pain 02/17/22 [History Last Taken Unknown] multivitamin 1 tab PO DAILY 02/17/22 [History Last Taken Unknown] Allergy/AdvReac Type Severity Reaction Status Date / Time diclofenac Allergy rash Verified 02/23/22 12:50 prednisone Allergy Rash Verified 02/23/22 12:50 Family History Father Cancer Prostate cancer Mother Hypertension Sister Hypertension Surgical History History of back surgery History of cardioversion (06/18/19) History of coronary artery stent placement (08/04/00) History of electrophysiologic study (08/08/00) History of hemorrhoidectomy History of hernia repair History of left heart catheterization (07/17/12) History of Zenaida fundoplication History of radiofrequency ablation procedure for cardiac arrhythmia (11/11/11) Social History household members: none Smoking Status: Never smoker alcohol intake: never substance use type: does not use caffeine: No ROS ROS ED Review of Systems ROS Unobtainable: other Constitutional Constitutional ED: Reports lethargy; Denies chills, fever(s), sweats or weight loss Eyes Eyes: Denies blurry vision, change in vision or diplopia ENT ENT ED: Denies rhinorrhea or sore throat Cardiovascular Cardiovascular: Reports chest pain and racing heartbeat; Denies orthopnea Respiratory/Chest Respiratory/Chest: Reports dyspnea and dyspnea on exertion; Denies cough, orthopnea or sputum Gastrointestinal Gastrointestinal: Denies abdominal pain, diarrhea, nausea or vomiting Genitourinary Genitourinary ED: Reports dysuria and urinary frequency; Denies hematuria Musculoskeletal Musculoskeletal: Denies arthralgias, back pain, myalgias or neck pain Integumentary Denies abscess, Abrasions or rash Neurologic Neurologic: Denies headache(s) or weakness Psychiatric Psychiatric: Denies anxiety, depression or suicidal thoughts Endocrine Endocrinology: Denies polydipsia, polyphagia or polyuria Hematologic/Lymphatic Hematologic/Lymphatic: Denies easy bleeding, easy bruising or lymphadenopathy Allergic/Immunologic Allergic/Immunologic ED: Denies mouth swelling, tongue swelling or urticaria EXAM Physical Exam Const Vital Signs: 02/23/22 12:50 Temperature 96.8 F L Temperature Source Temporal Pulse Rate 76 Respiratory Rate 14 Blood Pressure 132/89 H Blood Pressure Mean 103 Pulse Ox 98 Oxygen Delivery Method Room Air Positive well nourished and well developed General Appearance ED: well developed and NAD HEENT Reports TM's clear and moist mucous membranes normocephalic and atraumatic; Negative for trauma or tenderness Tympanic Membrane ED: Yes TM's clear Eyes PERRL and EOMs intact bilaterally General Eye ED: Negative for pale conjunctiva or scleral icterus Neck no lymphadenopathy, supple and no JVD General: Negative for tenderness Chest Wall inspection of chest normal and palpation of chest normal Chest: Negative for tenderness Resp normal respiratory effort and clear to auscultation bilaterally Effort and Inspection: Negative for respiratory distress or pain with movement Auscultation: Negative for rhonchi, wheezes or diminished lung sounds Cardio regular rate, regular rhythm, S1 normal heart sound, S2 normal heart sound and no murmurs Peripheral Pulses: pulses 2+ throughout GI normal to inspection, nondistended, normoactive bowel sounds, soft to palpation, non-tender, non-distended and no masses Back/Spine no CVA tenderness and no thoracic nor lumbar tenderness Extremity normal to inspection General Extremety ED: Negative for edema General Extremity: Negative for edema Neuro oriented x3, CN's II-XII intact bilaterally, no sensory deficits noted and gait normal Sensorium / Orientation: awake, alert, oriented to person, oriented to place and oriented to time Motor Exam: strength 5/5 throughout and strength abnormal Psych mental status grossly normal Skin no rashes or lesions noted and no wounds MDM MDM MDM Narrative Medical decision making narrative: Lab work-up was unremarkable. Bladder scan performed showed only 15 cc of urine in the bladder. Urinalysis was unremarkable. This point I discussed case with patient's primary care physician who ordered Flomax for patient as he has been without it for about a month and did send it to the pharmacy. Patient will be discharged to home. Etiology of patient's urinary frequency unclear. There is no evidence of retention. Lab Data Attestation: I reviewed the patient's lab results. Labs: Laboratory Results - last 24 hr 02/23/22 02/23/22 02/23/22 13:55 13:55 14:10 WBC 8.4 RBC 3.42 L Hgb 11.2 L Hct 35.3 L MCV 103.2 H MCH 32.7 H MCHC 31.7 L RDW Std Deviation 57.1 H RDW Coeff of [place] 15.2 H Plt Count 349 MPV 9.6 Immature Gran % (Auto) 0.500 Neut % (Auto) 79.2 H Lymph % (Auto) 9.9 L [place] % (Auto) 8.4 Eos % (Auto) 1.4 Baso % (Auto) 0.6 Absolute Neuts (auto) 6.6 Absolute Lymphs (auto) 0.83 Nucleated RBC % 0 Sodium 139 Potassium 3.7 Chloride 106 Carbon Dioxide 26.0 Anion Gap 7 BUN 43 H Creatinine 2.11 H Estim Creat Clear Calc 27.01 Est GFR (MDRD) Af Amer 39 L Est GFR (MDRD) Non-Af 32 L BUN/Creatinine Ratio 20.4 H Glucose 95 Calcium 8.8 Urine Color Yellow Urine Clarity Sl. Cloudy Urine pH 5.0 Ur Specific [place] 1.020 Urine Protein 15 H Urine Glucose (UA) Normal Urine Ketones Negative Urine Occult Blood Negative Urine Nitrite Negative Urine Bilirubin Negative Urine Urobilinogen Normal Ur Leukocyte Esterase 25 H Urine RBC 0 SEEN Urine WBC 0-5 SEEN Ur Squamous Epith Cells 0 SEEN Urine Bacteria 0 SEEN Urine Mucus 0 SEEN Discharge Plan Triage Chief Complaint: Complaint ED Provider: Aurora Dwyer Dx/Rx/DC Orders Clinical Impression: Spastic dysuria, Urinary frequency Instructions: ED Dysuria, Uncertain Cause (Adult) Prescriptions: No Action finasteride [Proscar] 5 mg tablet 5 mg PO DAILY warfarin 4 mg tablet 4 mg PO .COMPLEX Protocol: Dose Management Condition: Tuesday Dose/Route: 2 mg Instruction: 1 x 2 mg tablet Condition: Tuesday Dose/Route: 4 mg Instruction: 1 x 4 mg tablet Condition: Tuesday Dose/Route: 4 mg Instruction: 1 x 4 mg tablet Condition: Tuesday Dose/Route: 4 mg Instruction: 1 x 4 mg tablet Condition: Dose/Route: 4 mg Instruction: 1 x 4 mg tablet Condition: Tuesday Dose/Route: 4 mg Instruction: 1 x 4 mg tablet Condition: Tuesday Dose/Route: 4 mg Instruction: 1 x 4 mg tablet Protocol Text: Adjustment Start Date: Tuesday02/08/22 INR Value: 2.2 INR Date: 02/08/22 Recheck Date: 03/02/22 Rx Instructions: 4 mg PO Tuesday through Tuesday vitamin B complex no.10-FA 400 mcg tablet extended release 1 tab PO DAILY fluticasone propionate 50 mcg/actuation spray,suspension 1 spray intranasal BID PRN (Reason: Congestion) Rx Instructions: administer into each nostril tamsulosin 0.4 mg capsule 0.4 mg PO DAILY vitamin a isjauresr-P-gdtbkhez 25,000 unit (15K-10K unit) tablet 1 tab PO DAILY lidocaine 5 % adhesive patch,medicated 1 patch topical DAILY PRN (Reason: pain) Rx Instructions: leave on most painful area for up to 12 hrs levothyroxine 25 mcg tablet 25 mcg PO DAILY Label Comments: take 1 tablet by mouth once daily calcium carbonate 500 mg calcium (1,250 mg) tablet 500 mg PO BID multivitamin Tablet 1 tab PO DAILY furosemide 40 mg tablet 40 mg PO DAILY PRN Label Comments: TAKE 1 TABLET BY MOUTH NEEDED Prolia 60 MG/ML syringe 60 mg SQ .[id number] ipratropium bromide 21 mcg (0.03 %) [place],Non-Aerosol 2 spray INTRANASAL PRN PRN (Reason: SOB) Osteo Bi-Flex Triple Strength 750 mg-644 mg- 30 mg-1 mg Tablet 2 tab PO DAILY meclizine 25 mg Tablet 25 mg PO TID PRN PRN (Reason: Dizziness) Qty: 30 0RF warfarin 2 mg tablet 2 mg PO .COMPLEX Protocol: Dose Management Condition: Tuesday Dose/Route: 2 mg Instruction: 1 x 2 mg tablet Condition: Tuesday Dose/Route: 4 mg Instruction: 1 x 4 mg tablet Condition: Tuesday Dose/Route: 4 mg Instruction: 1 x 4 mg tablet Condition: Tuesday Dose/Route: 4 mg Instruction: 1 x 4 mg tablet Condition: Dose/Route: 4 mg Instruction: 1 x 4 mg tablet Condition: Tuesday Dose/Route: 4 mg Instruction: 1 x 4 mg tablet Condition: Tuesday Dose/Route: 4 mg Instruction: 1 x 4 mg tablet Protocol Text: Adjustment Start Date: Tuesday02/08/22 INR Value: 2.2 INR Date: 02/08/22 Recheck Date: 03/02/22 Rx Instructions: 2 mg PO Tuesday; amiodarone 200 mg tablet 100 mg PO BID diltiazem HCl 120 mg capsule,extended release 24hr 120 mg PO DAILY loratadine 10 mg tablet 10 mg PO DAILY acetaminophen 500 mg Tablet 1,000 mg PO Q6H PRN PRN (Reason: Pain Score 1-10) Qty: 0 0RF oxybutynin chloride 5 mg Tablet 5 mg PO QHS 30 Days Qty: 30 0RF metoprolol tartrate 25 mg Tablet 25 mg PO BID 30 Days Qty: 60 0RF acidophilus-pectin, citrus 25 million cell -100 mg Tablet 1 tab PO BID Qty: 0 0RF nitroglycerin 0.4 mg tablet, sublingual See Rx Instructions .ROUTE .COMPLEX Qty: 25 3RF Dose Instruction: PLACE 1 TABLET UNDER TONGUE EVERY 5 TO 15 MINUTES NEEDED FOR CHEST PAIN UNTIL RESPONSE. DO NOT EXCEED 3 DOSES PER EPISODE Rx Instructions: PLACE 1 TABLET UNDER TONGUE EVERY 5 TO 15 MINUTES NEEDED FOR CHEST PAIN UNTIL RESPONSE. DO NOT EXCEED 3 DOSES PER EPISODE Primary Care Provider: César Chinchilla Referrals: César Chinchilla MD [Primary Care Provider] - 3-5 Days Disposition Disposition: Home, Self Care
[2022-02-23 14:08] LABS: Absolute Lymphocyte Count 0.83 X10^3/uL (0.83-4.51); Absolute Neutrophil Count 6.6 X10^3/uL (2.0-7.7); Basophil# 0.05 X10^3/uL; Basophil% 0.6 % (0-1); Eosinophil# 0.12 X10^3/uL; Eosinophils% 1.4 % (0-5); Hematocrit 35.3 % (40-54); Hemoglobin 11.2 g/dL (13.0-16.5); Lymphocyte # 0.83 X10^3/ul (0.83-4.51); Lymphocyte % 9.9 % (19-41); Mean Corp Hgb Conc 31.7 g/dL (32-36); Mean Corpuscular Hgb 32.7 pg (27.0-32.0); Mean Corpuscular Volume 103.2 fL (80-94); Mean Platelet Vol. 9.6 fl (6.2-12.0); Monocyte% 8.4 % (0-10); NRBC Flagged by Analyzer 0 % (0-5); Neutrophil # 6.61 X10^3/uL (2.7-7.7); Neutrophil % 79.2 % (47-70); Platelet Count 349 K/mm3 (150-450); RBC Distribution Width CV 15.2 % (11.6-14.6); RBC Distribution Width SD 57.1 fl (35.1-43.9); Red Blood Count 3.42 M/mm3 (4.6-6.2); White Blood Count 8.4 K/mm3 (4.4-11.0)
[2022-02-23 14:16] LABS: Bacteria 0 SEEN /hpf (None Seen); Mucous, Urine 0 SEEN /hpf (<or=2+); Red Blood Cells-Urine 0 SEEN /hpf (0-5); Squamous Epithelial Cells - UA 0 SEEN /hpf (0-5)
[2022-02-23 14:17] LABS: Anion Gap 7 (5-15); BUN 43 mg/dL (7-18); BUN/Creat Ratio 20.4 RATIO (10-20); Calcium,Total 8.8 mg/dL (8.5-10.1); Chloride 106 mmol/L (98-107); Creatinine, Serum 2.11 mg/dL (0.70-1.30); EST Glomerular Filtration Rate 32 mL/min (>60); Est Glom Filt Rate - Afr Amer 39 mL/min (>60); Estimated Creatinine Clearance 27.01 ml/min; Glucose 95 mg/dL (74-106); Potassium 3.7 mmol/L (3.5-5.1); Sodium Level 139 mmol/L (136-145)
[2022-02-23 14:25] LABS: Color, Urine Yellow (Yellow); Glucose, Dipstick Normal (Normal); Ketone-Dipstick Negative (Negative); Leukocyte Esterase-Dipstick 25 /ul (Negative); Nitrite-Dipstick Negative (Negative); Occult Blood-Urine Negative /ul (Negative); Protein-Dipstick 15 mg/dl (Negative); Urine Bilirubin Dipstick Negative (Negative); Urine Clarity Sl. Cloudy (Clear); Urine Urobilinogen Normal (Normal)
[2022-02-23 14:34] LABS: White Blood Cells 0-5 SEEN /hpf (0-5)
[2022-02-23 15:19] VITALS: BP 129/76; PULSE 83; RESP 16; O2SAT 99
== END 2022-02-23 15:20 | disposition home or self-care (01) ==
PROVIDERS: Emergency Provider Emergency Medicine; PCP Family Medicine; Visit Provider Emergency Medicine
DX: N40.1 Benign prostatic hyperplasia with lower urinary tract symptoms (principal); I50.32 Chronic diastolic (congestive) heart failure; I13.0 Hypertensive heart and chronic kidney disease with heart failure and stage 1 through stage 4 chronic kidney disease, or unspecified chronic kidney disease; I27.21 Secondary pulmonary arterial hypertension; I71.2 Thoracic aortic aneurysm, without rupture; I48.0 Paroxysmal atrial fibrillation; N18.32 Chronic kidney disease, stage 3b; R35.0 Frequency of micturition; I25.10 Atherosclerotic heart disease of native coronary artery without angina pectoris; E78.5 Hyperlipidemia, unspecified; Z87.19 Personal history of other diseases of the digestive system; K21.9 Gastro-esophageal reflux disease without esophagitis; Z87.442 Personal history of urinary calculi; I25.2 Old myocardial infarction; M19.90 Unspecified osteoarthritis, unspecified site; G47.30 Sleep apnea, unspecified; Z79.899 Other long term (current) drug therapy; Z79.01 Long term (current) use of anticoagulants; Z95.5 Presence of coronary angioplasty implant and graft; R30.0 Dysuria
CPT/HCPCS: 80048; 81001; 85025; 99283; A4216

== ENCOUNTER 2022-02-24 11:47 | Observation (INO) | payer MEDICARE, OTHER, SELFPAY ==
[2022-02-24] VITALS (10 sets, daily range): BP systolic 81–136; BP diastolic 56–90; PULSE 5–91; RESP 18–23; TEMP 36.2–36.6; O2SAT 93–97; BMI 23.2
--- NOTE | 2022-02-24 12:05 | ED.VIS.GI ---
HPI HPI - GI History of Present Illness Chief Complaint: Diarrhea Detail of Chief Complaint: Diarrhea that started this morning Informant: patient Narrative Narrative: Patient presents to the emergency department complaint of diarrhea that started this morning. Patient states that he had 3 or 4 bouts of watery stool. Patient states he was admitted at the end of December for diarrhea. Patient at that time also had pneumonia and was on antibiotics. Patient states that this morning he fell off the toilet and scraped his knee on the left side. Deny striking his head or loss consciousness. He did feel lightheaded at the time. Patient also vomited x1. He denies any sick contacts. Prior similar symptoms: Yes PFSH PFSH Medical History Acute blood loss anemia Acute diverticulitis of intestine Acute gastrointestinal bleeding Atherosclerotic heart disease of [place] coronary artery without angina pectoris Atrial fibrillation Atypical atrial flutter (12/2020) Benign prostatic hyperplasia BPH (benign prostatic hyperplasia) Cancer Chronic heart failure with preserved ejection fraction (HFpEF) Chronic kidney disease Chronic renal insufficiency CPAP (continuous positive airway pressure) dependence Debility Dysphagia Elevated liver enzymes Essential (primary) hypertension GERD (gastroesophageal reflux disease) GI bleed (2012) History of colon polyps History of hyperthyroidism HLD (hyperlipidemia) Hypertension Kidney disease Kidney stones Myocardial infarct Non-rheumatic tricuspid valve insufficiency Non-smoker Nonrheumatic mitral (valve) insufficiency 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 Osteoarthritis Paroxysmal atrial fibrillation Secondary pulmonary arterial hypertension Sleep apnea Stage 3b chronic kidney disease Thoracic aortic aneurysm (TAA) Home Medications finasteride 5 mg tablet (Proscar) 5 mg PO DAILY prostate 06/03/20 [History Last Taken 01/20/21] denosumab 60 mg/mL subcutaneous syringe (Prolia) 60 mg SQ .[id number] BONES 12/09/20 [History Last Taken 12/05/20] glucosamine 750 gm-inohpaamxbh-tay no1 644 mg-C 30 mg-pamela 1 mg tablet (Osteo Bi-Flex Triple Strength) 2 tab PO DAILY bone health 05/06/21 [History Last Taken Unknown] ipratropium bromide 21 mcg (0.03 %) nasal spray 2 spray intranasal PRN PRN SOB 05/06/21 [History Last Taken Unknown] meclizine 25 mg tablet 25 mg PO TID PRN PRN Dizziness #30 tabs 05/07/21 [Rx Last Taken Unknown] vitamin Bcomplex no.10-folic acid ER 400 mcg tablet,extended release 1 tab PO DAILY supplement 09/18/21 [History Last Taken Unknown] amiodarone 200 mg tablet 100 mg PO BID heart rate 10/19/21 [History Last Taken 01/07/22 08:52] fluticasone propionate 50 mcg/actuation nasal spray,suspension 1 spray intranasal BID PRN Congestion 11/18/21 [History Last Taken Unknown] tamsulosin 0.4 mg capsule 0.4 mg PO DAILY bladder 11/18/21 [History Last Taken Unknown] vitamin A palmitate-beta carotene 25,000 unit (15K-10K unit) tablet 1 tab PO DAILY supplement 11/18/21 [History Last Taken Unknown] warfarin 2 mg tablet 2 mg PO .COMPLEX blood thinner 11/18/21 [History Last Taken Unknown] warfarin 4 mg tablet 4 mg PO .COMPLEX BLOOD THINNER 11/18/21 [History Last Taken Unknown] diltiazem HCl 120 mg capsule,extended release 24 hr 120 mg PO DAILY heart 01/07/22 [History Last Taken 01/07/22 08:51] loratadine 10 mg tablet 10 mg PO DAILY allergies 01/07/22 [History Last Taken Unknown] acetaminophen 500 mg tablet 1,000 mg PO Q6H PRN PRN Pain Score 1-10 #0 tabs 01/19/22 [Rx Last Taken Unknown] acidophilus 25 million cell-pectin, citrus 100 mg tablet 1 tab PO BID #0 tabs 01/19/22 [Rx Last Taken Unknown] metoprolol tartrate 25 mg tablet 25 mg PO BID 30 days #60 tabs 01/19/22 [Rx Last Taken Unknown] oxybutynin chloride 5 mg tablet 5 mg PO QHS 30 days #30 tabs 01/19/22 [Rx Last Taken Unknown] nitroglycerin 0.4 mg sublingual tablet See Rx Instructions .Route .COMPLEX #25 TABLETS 02/02/22 [Rx Last Taken Unknown] calcium carbonate 500 mg calcium (1,250 mg) tablet 500 mg PO BID 02/17/22 [History Last Taken Unknown] furosemide 40 mg tablet 40 mg PO DAILY PRN 02/17/22 [History Last Taken Unknown] levothyroxine 25 mcg tablet 25 mcg PO DAILY 02/17/22 [History Last Taken Unknown] lidocaine 5 % topical patch 1 patch topical DAILY PRN pain 02/17/22 [History Last Taken Unknown] multivitamin 1 tab PO DAILY 02/17/22 [History Last Taken Unknown] Allergy/AdvReac Type Severity Reaction Status Date / Time diclofenac Allergy rash Verified 02/24/22 11:52 prednisone Allergy Rash Verified 02/24/22 11:52 Family History Father Cancer Prostate cancer Mother Hypertension Sister Hypertension Surgical History History of back surgery History of cardioversion (06/18/19) History of coronary artery stent placement (08/04/00) History of electrophysiologic study (08/08/00) History of hemorrhoidectomy History of hernia repair History of left heart catheterization (07/17/12) History of Zenaida fundoplication History of radiofrequency ablation procedure for cardiac arrhythmia (11/11/11) Social History household members: none Smoking Status: Never smoker alcohol intake: never substance use type: does not use caffeine: No ROS ROS ED Review of Systems ROS Unobtainable: other Constitutional Constitutional ED: Reports lethargy; Denies chills, fever(s), sweats or weight loss Eyes Eyes: Denies blurry vision, change in vision or diplopia ENT ENT ED: Denies rhinorrhea or sore throat Cardiovascular Cardiovascular: Reports chest pain and racing heartbeat; Denies orthopnea Respiratory/Chest Respiratory/Chest: Reports dyspnea and dyspnea on exertion; Denies cough, orthopnea or sputum Gastrointestinal Gastrointestinal: Reports diarrhea, nausea and vomiting; Denies abdominal pain Genitourinary Genitourinary ED: Denies dysuria, hematuria or urinary frequency Musculoskeletal Musculoskeletal: Denies arthralgias, back pain, myalgias or neck pain Integumentary Denies abscess, Abrasions or rash Neurologic Neurologic: Denies headache(s) or weakness Psychiatric Psychiatric: Denies anxiety, depression or suicidal thoughts Endocrine Endocrinology: Denies polydipsia, polyphagia or polyuria Hematologic/Lymphatic Hematologic/Lymphatic: Denies easy bleeding, easy bruising or lymphadenopathy Allergic/Immunologic Allergic/Immunologic ED: Denies mouth swelling, tongue swelling or urticaria EXAM Physical Exam Const Vital Signs: 02/24/22 11:48 02/24/22 11:50 02/24/22 11:57 Temperature 97.6 F L 97.1 F L Temperature Source Temporal Temporal Pulse Rate 79 5 L Respiratory Rate 18 23 H Blood Pressure 81/69 L 81/69 L 106/56 L Blood Pressure Mean 73 73 72 Pulse Ox 94 93 Oxygen Delivery Method Room Air Room Air Positive well nourished and well developed General Appearance ED: well developed and NAD HEENT Reports TM's clear and moist mucous membranes normocephalic and atraumatic; Negative for trauma or tenderness Tympanic Membrane ED: Yes TM's clear Eyes PERRL and EOMs intact bilaterally General Eye ED: Negative for pale conjunctiva or scleral icterus Neck no lymphadenopathy, supple and no JVD General: Negative for tenderness Chest Wall inspection of chest normal and palpation of chest normal Chest: Negative for tenderness Resp normal respiratory effort and clear to auscultation bilaterally Effort and Inspection: Negative for respiratory distress or pain with movement Auscultation: Negative for rhonchi, wheezes or diminished lung sounds Cardio regular rate, regular rhythm, S1 normal heart sound, S2 normal heart sound and no murmurs Peripheral Pulses: pulses 2+ throughout GI normal to inspection, nondistended, normoactive bowel sounds, soft to palpation, non-tender, non-distended and no masses Back/Spine no CVA tenderness and no thoracic nor lumbar tenderness Extremity Extremity Narrative: Patient has a super superficial skin abrasion over the anterior aspect of the left knee/patella. No bony tenderness on exam. Normal range of motion in flexion extension of the knee. General Extremety ED: Negative for edema General Extremity: Negative for edema Neuro oriented x3, CN's II-XII intact bilaterally, no sensory deficits noted and gait normal Sensorium / Orientation: awake, alert, oriented to person, oriented to place and oriented to time Motor Exam: strength 5/5 throughout and strength abnormal Psych mental status grossly normal Skin no rashes or lesions noted and no wounds Discharge Plan Triage Chief Complaint: Diarrhea ED Provider: Aurora Dwyer Dx/Rx/DC Orders Prescriptions: No Action finasteride [Proscar] 5 mg tablet 5 mg PO DAILY warfarin 4 mg tablet 4 mg PO .COMPLEX Protocol: Dose Management Condition: Tuesday Dose/Route: 2 mg Instruction: 1 x 2 mg tablet Condition: Tuesday Dose/Route: 4 mg Instruction: 1 x 4 mg tablet Condition: Tuesday Dose/Route: 4 mg Instruction: 1 x 4 mg tablet Condition: Tuesday Dose/Route: 4 mg Instruction: 1 x 4 mg tablet Condition: Dose/Route: 4 mg Instruction: 1 x 4 mg tablet Condition: Tuesday Dose/Route: 4 mg Instruction: 1 x 4 mg tablet Condition: Tuesday Dose/Route: 4 mg Instruction: 1 x 4 mg tablet Protocol Text: Adjustment Start Date: Tuesday02/08/22 INR Value: 2.2 INR Date: 02/08/22 Recheck Date: 03/02/22 Rx Instructions: 4 mg PO Tuesday through Tuesday vitamin B complex no.10-FA 400 mcg tablet extended release 1 tab PO DAILY fluticasone propionate 50 mcg/actuation spray,suspension 1 spray intranasal BID PRN (Reason: Congestion) Rx Instructions: administer into each nostril tamsulosin 0.4 mg capsule 0.4 mg PO DAILY vitamin a [id number] 25,000 unit (15K-10K unit) tablet 1 tab PO DAILY lidocaine 5 % adhesive patch,medicated 1 patch topical DAILY PRN (Reason: pain) Rx Instructions: leave on most painful area for up to 12 hrs levothyroxine 25 mcg tablet 25 mcg PO DAILY Label Comments: take 1 tablet by mouth once daily calcium carbonate 500 mg calcium (1,250 mg) tablet 500 mg PO BID multivitamin Tablet 1 tab PO DAILY furosemide 40 mg tablet 40 mg PO DAILY PRN Label Comments: TAKE 1 TABLET BY MOUTH NEEDED Prolia 60 MG/ML syringe 60 mg SQ .[id number] ipratropium bromide 21 mcg (0.03 %) [place],Non-Aerosol 2 spray INTRANASAL PRN PRN (Reason: SOB) Osteo Bi-Flex Triple Strength 750 mg-644 mg- 30 mg-1 mg Tablet 2 tab PO DAILY meclizine 25 mg Tablet 25 mg PO TID PRN PRN (Reason: Dizziness) Qty: 30 0RF warfarin 2 mg tablet 2 mg PO .COMPLEX Protocol: Dose Management Condition: Tuesday Dose/Route: 2 mg Instruction: 1 x 2 mg tablet Condition: Tuesday Dose/Route: 4 mg Instruction: 1 x 4 mg tablet Condition: Tuesday Dose/Route: 4 mg Instruction: 1 x 4 mg tablet Condition: Tuesday Dose/Route: 4 mg Instruction: 1 x 4 mg tablet Condition: Dose/Route: 4 mg Instruction: 1 x 4 mg tablet Condition: Tuesday Dose/Route: 4 mg Instruction: 1 x 4 mg tablet Condition: Tuesday Dose/Route: 4 mg Instruction: 1 x 4 mg tablet Protocol Text: Adjustment Start Date: Tuesday02/08/22 INR Value: 2.2 INR Date: 02/08/22 Recheck Date: 03/02/22 Rx Instructions: 2 mg PO Tuesday; amiodarone 200 mg tablet 100 mg PO BID diltiazem HCl 120 mg capsule,extended release 24hr 120 mg PO DAILY loratadine 10 mg tablet 10 mg PO DAILY acetaminophen 500 mg Tablet 1,000 mg PO Q6H PRN PRN (Reason: Pain Score 1-10) Qty: 0 0RF oxybutynin chloride 5 mg Tablet 5 mg PO QHS 30 Days Qty: 30 0RF metoprolol tartrate 25 mg Tablet 25 mg PO BID 30 Days Qty: 60 0RF acidophilus-pectin, citrus 25 million cell -100 mg Tablet 1 tab PO BID Qty: 0 0RF nitroglycerin 0.4 mg tablet, sublingual See Rx Instructions .ROUTE .COMPLEX Qty: 25 3RF Dose Instruction: PLACE 1 TABLET UNDER TONGUE EVERY 5 TO 15 MINUTES NEEDED FOR CHEST PAIN UNTIL RESPONSE. DO NOT EXCEED 3 DOSES PER EPISODE Rx Instructions: PLACE 1 TABLET UNDER TONGUE EVERY 5 TO 15 MINUTES NEEDED FOR CHEST PAIN UNTIL RESPONSE. DO NOT EXCEED 3 DOSES PER EPISODE Primary Care Provider: Cséar Chinchilla Referrals: César Chinhcilla MD [Primary Care Provider] -
[2022-02-24] MEDS: 0.9% Normal Saline 1,000 ML 1000 ML IV (12:25)
[2022-02-24 12:42] LABS: Anion Gap 7 (5-15); BUN 53 mg/dL (7-18); BUN/Creat Ratio 19.6 RATIO (10-20); Calcium,Total 8.6 mg/dL (8.5-10.1); Chloride 110 mmol/L (98-107); Creatinine, Serum 2.71 mg/dL (0.70-1.30); EST Glomerular Filtration Rate 24 mL/min (>60); Est Glom Filt Rate - Afr Amer 29 mL/min (>60); Estimated Creatinine Clearance 21.03 ml/min; Glucose 119 mg/dL (74-106); Potassium 3.7 mmol/L (3.5-5.1); Sodium Level 141 mmol/L (136-145)
[2022-02-24 12:46] LABS: Absolute Lymphocyte Count 0.54 X10^3/uL (0.83-4.51); Basophil# 0.05 X10^3/uL; Basophil% 0.4 % (0-1); Eosinophil# 0.07 X10^3/uL; Eosinophils% 0.6 % (0-5); Hematocrit 33.7 % (40-54); Hemoglobin 10.7 g/dL (13.0-16.5); Lymphocyte # 0.54 X10^3/ul (0.83-4.51); Lymphocyte % 4.3 % (19-41); Mean Corp Hgb Conc 31.8 g/dL (32-36); Mean Corpuscular Hgb 32.5 pg (27.0-32.0); Mean Corpuscular Volume 102.4 fL (80-94); Mean Platelet Vol. 9.9 fl (6.2-12.0); Monocyte# 0.66 X10^3/uL; Monocyte% 5.3 % (0-10); NRBC Flagged by Analyzer 0 % (0-5); Neutrophil # 10.98 X10^3/uL (2.7-7.7); Neutrophil % 87.8 % (47-70); POSITIVE DIFFERENTIAL YES; Platelet Count 350 K/mm3 (150-450); RBC Distribution Width CV 15.2 % (11.6-14.6); RBC Distribution Width SD 57.5 fl (35.1-43.9); Red Blood Count 3.29 M/mm3 (4.6-6.2); White Blood Count 12.5 K/mm3 (4.4-11.0)
[2022-02-24 12:54] LABS: Differential Indicated SCAN CRITERIA MET
[2022-02-24 13:49] LABS: Platelet Estimate ADEQUATE (ADEQ); Red Cell Morphology NORM C+C NORMAL (NORM C&C)
--- NOTE | 2022-02-24 16:17 | HP.PCM.HOS_ITS ---
HPI - General General Date of Admission: 02/24/22 HPI Narrative RICHIE HANSEN, is a 81 M who presents to the hospital with 1 day of nausea, vomiting, diarrhea. He says he has had multiple bouts of diarrhea but only one episode of nausea. In the ER he was found to have an elevated white count of 12.5 and his creatinine was elevated to 2.71 with a baseline of around 2. He denies any blood in his stools or in his emesis and denies any significant abdominal pain. He denies any abnormal food and he lives alone. He is feeling a little bit weak secondary to the diarrhea and slight dehydration. [facility] Medical History Acute blood loss anemia Acute diverticulitis of intestine Acute gastrointestinal bleeding Atherosclerotic heart disease of [place] coronary artery without angina pectoris Atrial fibrillation Atypical atrial flutter (12/2020) Benign prostatic hyperplasia BPH (benign prostatic hyperplasia) Cancer Chronic heart failure with preserved ejection fraction (HFpEF) Chronic kidney disease Chronic renal insufficiency CPAP (continuous positive airway pressure) dependence Debility Dysphagia Elevated liver enzymes Essential (primary) hypertension GERD (gastroesophageal reflux disease) GI bleed (2012) History of colon polyps History of hyperthyroidism HLD (hyperlipidemia) Hypertension Kidney disease Kidney stones Myocardial infarct Non-rheumatic tricuspid valve insufficiency Non-smoker Nonrheumatic mitral (valve) insufficiency 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 Osteoarthritis Paroxysmal atrial fibrillation Secondary pulmonary arterial hypertension Sleep apnea Stage 3b chronic kidney disease Thoracic aortic aneurysm (TAA) Home Medications finasteride 5 mg tablet (Proscar) 5 mg PO DAILY prostate 06/03/20 [History Last Taken 02/24/22] denosumab 60 mg/mL subcutaneous syringe (Prolia) 60 mg SQ .[id number] BONES 12/09/20 [History Last Taken 3 Months Ago ~11/24/21] glucosamine 750 yv-benozerbtpm-afk no1 644 mg-C 30 mg-pamela 1 mg tablet (Osteo Bi-Flex Triple Strength) 1 tab PO BID bone health 05/06/21 [History Last Taken 02/23/22] ipratropium bromide 21 mcg (0.03 %) nasal spray 2 spray intranasal PRN PRN SOB 05/06/21 [History Last Taken 02/23/22] amiodarone 200 mg tablet 100 mg PO BID heart rate 10/19/21 [History Last Taken 02/24/22] fluticasone propionate 50 mcg/actuation nasal spray,suspension 1 spray i ntranasal BID PRN Congestion 11/18/21 [History Last Taken 2 Days Ago ~02/22/22] tamsulosin 0.4 mg capsule 0.4 mg PO DAILY bladder 11/18/21 [History Last Taken 02/24/22] vitamin A palmitate-beta carotene 25,000 unit (15K-10K unit) tablet 1 tab PO DAILY supplement 11/18/21 [History Last Taken 02/24/22] warfarin 2 mg tablet 2 mg PO SA blood thinner 11/18/21 [History Last Taken 02/20/22] warfarin 4 mg tablet 4 mg PO SUMOTUWETHFR BLOOD THINNER 11/18/21 [History Last Taken 02/23/22] diltiazem HCl 120 mg capsule,extended release 24 hr 120 mg PO DAILY heart 01/07/22 [History Last Taken 02/24/22] loratadine 10 mg tablet 10 mg PO DAILY allergies 01/07/22 [History Last Taken 2 Days Ago ~02/22/22] acetaminophen 500 mg tablet 1,000 mg PO Q6H PRN PRN Pain Score 1-10 #0 tabs 01/19/22 [Rx Last Taken 02/23/22] acidophilus 25 million cell-pectin, citrus 100 mg tablet 1 tab PO BID #0 tabs 01/19/22 [Rx Last Taken 02/24/22] metoprolol tartrate 25 mg tablet 25 mg PO BID 30 days #60 tabs 01/19/22 [Rx Last Taken 02/24/22] oxybutynin chloride 5 mg tablet 5 mg PO QHS 30 days #30 tabs 01/19/22 [Rx Last Taken 02/23/22] nitroglycerin 0.4 mg sublingual tablet See Rx Instructions .Route .COMPLEX #25 TABLETS 02/02/22 [Rx Last Taken 02/24/22] calcium carbonate 500 mg calcium (1,250 mg) tablet 500 mg PO BID 02/17/22 [History Last Taken 02/24/22] levothyroxine 25 mcg tablet 25 mcg PO DAILY 02/17/22 [History Last Taken 02/24/22] lidocaine 5 % topical patch 1 patch topical DAILY PRN pain 02/17/22 [History Last Taken 2 Days Ago ~02/22/22] multivitamin 1 tab PO DAILY 02/17/22 [History Last Taken 02/23/22] benzonatate 200 mg capsule 200 mg PO Q8H PRN Cough 02/24/22 [History Last Taken 02/23/22] vitamin B complex-folic acid ER 400 mcg tablet,extended release 1 tab PO DAILY SUPPLEMENT 02/24/22 [History Last Taken 02/24/22] Allergy/AdvReac Type Severity Reaction Status Date / Time diclofenac Allergy rash Verified 02/24/22 11:52 prednisone Allergy Rash Verified 02/24/22 11:52 Family History Father Cancer Prostate cancer Mother Hypertension Sister Hypertension Surgical History History of back surgery History of cardioversion (06/18/19) History of coronary artery stent placement (08/04/00) History of electrophysiologic study (08/08/00) History of hemorrhoidectomy History of hernia repair History of left heart catheterization (07/17/12) History of Zenaida fundoplication History of radiofrequency ablation procedure for cardiac arrhythmia (11/11/11) Social History household members: none Smoking Status: Never smoker alcohol intake: never substance use type: does not use caffeine: No ROS Constitutional Constitutional: Reports weakness; Denies chills, fatigue, fever(s) or malaise Eyes Eyes: Denies blurry vision ENT HEENT: Denies headache(s) or nasal discharge Cardiovascular Cardiovascular: Denies chest pain, dyspnea on exertion or syncope Respiratory/Chest Respiratory/Chest: Denies cough, shortness of breath at rest or shortness of breath with exertion Gastrointestinal Gastrointestinal: Reports diarrhea, nausea and vomiting; Denies constipation Genitourinary Genitourinary: Denies dysuria Neurologic Neurologic: Denies focal weakness, numbness or tremor(s) Psychiatric Psychiatric: Denies anxiety or depression Vital Signs Vital Signs Vital Signs: 02/24/22 11:48 02/24/22 11:50 02/24/22 11:57 Temperature 97.6 F L 97.1 F L Temperature Source Temporal Temporal Pulse Rate 79 5 L Respiratory Rate 18 23 H Blood Pressure 81/69 L 81/69 L 106/56 L Blood Pressure Mean 73 73 72 Pulse Ox 94 93 Oxygen Delivery Method Room Air Room Air 02/24/22 14:28 02/24/22 14:50 02/24/22 15:40 Temperature 98 F 98 F 98 F Temperature Source Temporal Temporal Temporal Pulse Rate 91 91 91 Respiratory Rate 20 H 20 H 21 H Blood Pressure 130/81 H 130/81 H 136/77 H Blood Pressure Mean 97 96 Pulse Ox 95 95 93 Oxygen Delivery Method Room Air Room Air Room Air Weight Weight: 152 lb 12.485 oz Body Mass Index (BMI) 23.2 Physical Exam Const alert, oriented x3 and no apparent distress General Appearance: cooperative HEENT normocephalic Mouth: dry mucous membranes Eyes PERRL, EOMs intact bilaterally and conjunctivae normal Neck supple and no JVD Resp normal respiratory effort, no retractions, no use of accessory muscles and clear to auscultation bilaterally Auscultation: Negative for crackles, rales, rhonchi or wheezes Cardio regular rate, regular rhythm, S1 normal heart sound, S2 normal heart sound and no murmurs GI soft to palpation, non-tender and non-distended; Negative for hepatosplenomegaly Extremity no clubbing, cyanosis or edema Skin no rashes or lesions noted Neuro no focal motor deficits and no sensory deficits noted Psych affect normal Appearance: appropriate Results Lab / Micro Data Result Diagrams: 02/24/22 12:20 02/24/22 12:20 Labs: Laboratory Results - last 24 hr 02/24/22 12:20: WBC 12.5 H, RBC 3.29 L, Hgb 10.7 L, Hct 33.7 L, MCV 102.4 H, MCH 32.5 H, MCHC 31.8 L, RDW Std Deviation 57.5 H, RDW Coeff of Pablo 15.2 H, Plt Count 350, MPV 9.9, Immature Gran % (Auto) 1.600 H, Neut % (Auto) 87.8 H, Lymph % (Auto) 4.3 L, [place] % (Auto) 5.3, Eos % (Auto) 0.6, Baso % (Auto) 0.4, Absolute Neuts (auto) 11.0 H, Absolute Lymphs (auto) 0.54 L, Nucleated RBC % 0, Differential Comment , Platelet Estimate ADEQUATE, RBC Morphology NORM C+C 02/24/22 12:20: Sodium 141, Potassium 3.7, Chloride 110 H, Carbon Dioxide 24.0, Anion Gap 7, BUN 53 H, Creatinine 2.71 H, Estim Creat Clear Calc 21.03, Est GFR (MDRD) Af Amer 29 L, Est GFR (MDRD) Non-Af 24 L, BUN/Creatinine Ratio 19.6, Glucose 119 H, Calcium 8.6 Micro: Microbiology 02/24/22 12:35 Stool Enteric Bacteriology - Final Assessment & Plan Assessment/Plan (1) Gastroenteritis: (2) Acute kidney injury superimposed on chronic kidney disease: PLAN: Plan 1. Gastroenteritis/FE on CKD 3B ? Stool cultures are pending ? Continue with IV fluids ? No blood in his stool ? We will provide him with nausea medications ? We will continue to monitor his renal function 2. A flutter/HTN/HLD ? INR is therapeutic at 2.2, will continue with his Coumadin ? Blood pressure is stable can continue you with his home metoprolol and Cardizem as well as amiodarone ? He does have a history of a GI bleed so continue to monitor for any blood loss 3. BPH ?stable ? Continue with Flomax 4. Hypothyroidism ? Stable ? Continue with Synthroid DVT: Coumadin Charges/Coding Visit Charges OBSV E&M: 35829 Initial observation care L2
[2022-02-24] MEDS: 0.9% Normal Saline 1,000 ML 100 ML IV (17:32)
[2022-02-24 17:56] LABS: International Normalized Ratio 2.9; Prothrombin Time (Protime)PT. 30.2 SECONDS (11.7-14.9)
[2022-02-24] MEDS: Amiodarone 200 MG Tablet 100 MG PO (21:50)
[2022-02-24] MEDS: Metoprolol Tartrate 25 MG Tablet PO (21:51)
[2022-02-24] MEDS: Tamsulosin HCl 0.4 MG Capsule PO (22:01)
[2022-02-24] MEDS: Acetaminophen 500 MG Tablet 1000 MG PO (23:19)
[2022-02-25] MEDS: Ondansetron 4 MG/2 ML Vial IV (00:25)
[2022-02-25] MEDS: MENTHOL 226.8 GM JAR 1 APPLIC TOPICAL (00:34)
[2022-02-25] MEDS: 0.9% Normal Saline 1,000 ML 100 ML IV ×2 (03:30→12:20)
[2022-02-25 04:16] LABS: Absolute Lymphocyte Count 0.88 X10^3/uL (0.83-4.51); Basophil# 0.04 X10^3/uL; Basophil% 0.4 % (0-1); Eosinophil# 0.18 X10^3/uL; Hematocrit 27.7 % (40-54); Hemoglobin 8.9 g/dL (13.0-16.5); Lymphocyte # 0.88 X10^3/ul (0.83-4.51); Lymphocyte % 9.6 % (19-41); Mean Corp Hgb Conc 32.1 g/dL (32-36); Mean Corpuscular Volume 102.6 fL (80-94); Mean Platelet Vol. 9.4 fl (6.2-12.0); Monocyte# 0.94 X10^3/uL; Monocyte% 10.3 % (0-10); NRBC Flagged by Analyzer 0 % (0-5); Neutrophil # 7.03 X10^3/uL (2.7-7.7); Neutrophil % 77.2 % (47-70); Platelet Count 258 K/mm3 (150-450); RBC Distribution Width CV 15.6 % (11.6-14.6); RBC Distribution Width SD 58.4 fl (35.1-43.9); White Blood Count 9.1 K/mm3 (4.4-11.0)
[2022-02-25 04:28] LABS: International Normalized Ratio 3.6; Prothrombin Time (Protime)PT. 35.9 SECONDS (11.7-14.9)
[2022-02-25 04:30] VITALS: BP 121/79; PULSE 71; RESP 16; TEMP 36.6; O2SAT 95
[2022-02-25 05:33] LABS: Anion Gap 6 (5-15); BUN 41 mg/dL (7-18); BUN/Creat Ratio 18.4 RATIO (10-20); Calcium,Total 7.5 mg/dL (8.5-10.1); Chloride 113 mmol/L (98-107); Creatinine, Serum 2.23 mg/dL (0.70-1.30); EST Glomerular Filtration Rate 30 mL/min (>60); Est Glom Filt Rate - Afr Amer 37 mL/min (>60); Estimated Creatinine Clearance 25.56 ml/min; Glucose 99 mg/dL (74-106); Potassium 3.8 mmol/L (3.5-5.1); Sodium Level 142 mmol/L (136-145)
[2022-02-25] MEDS: Levothyroxine 25 MCG TABLET PO (05:42)
[2022-02-25 08:28] VITALS: BP 127/91; PULSE 89; RESP 18; TEMP 36.6; O2SAT 94
[2022-02-25 08:36] VITALS: PULSE 89
[2022-02-25] MEDS: Loratadine 10 MG Tablet PO (08:36)
[2022-02-25] MEDS: Metoprolol Tartrate 25 MG Tablet PO (08:36)
[2022-02-25] MEDS: Amiodarone 200 MG Tablet 100 MG PO (08:37)
[2022-02-25] MEDS: dilTIAZem CD 120 MG Capsule PO (08:38)
[2022-02-25] MEDS: Acetaminophen 500 MG Tablet 1000 MG PO (08:38)
[2022-02-25] MEDS: Finasteride 5 MG Tablet PO (08:38)
[2022-02-25] MEDS: Calcium (Elemental) 500 MG Tablet PO (08:38)
--- NOTE | 2022-02-25 14:06 | PCM.DC ---
Discharge Instructions Diet Discharge Diet: No restrictions Activity Discharge Activity: Return to Normal Activity Weight Bearing Status: Full weight bearing Follow Up Care Test Results: Test results from this visit will be discussed in further detail at your follow-up appointment, if applicable. Discharge Plan Admission Admit Date/Time: 02/24/22 14:29 Primary Reason for Your Visit: Diarrhea Attending Provider: Nagi Shanks Primary Care Provider: César Chinchilla Consulting Providers: Mehrdad Eagle Discharge Orders/Prescriptions Prescriptions: Continued finasteride [Proscar] 5 mg tablet 5 mg PO DAILY warfarin 4 mg tablet 4 mg PO SUMOTUWETHFR Protocol: Dose Management Condition: Tuesday Dose/Route: 2 mg Instruction: 1 x 2 mg tablet Condition: Tuesday Dose/Route: 4 mg Instruction: 1 x 4 mg tablet Condition: Tuesday Dose/Route: 4 mg Instruction: 1 x 4 mg tablet Condition: Tuesday Dose/Route: 4 mg Instruction: 1 x 4 mg tablet Condition: Dose/Route: 4 mg Instruction: 1 x 4 mg tablet Condition: Tuesday Dose/Route: 4 mg Instruction: 1 x 4 mg tablet Condition: Tuesday Dose/Route: 4 mg Instruction: 1 x 4 mg tablet Protocol Text: Adjustment Start Date: Tuesday02/08/22 INR Value: 2.2 INR Date: 02/08/22 Recheck Date: 03/02/22 Rx Instructions: 4 mg PO Tuesday through Tuesday fluticasone propionate 50 mcg/actuation spray,suspension 1 spray intranasal BID PRN (Reason: Congestion) Rx Instructions: administer into each nostril tamsulosin 0.4 mg capsule 0.4 mg PO DAILY vitamin a bhuqlevzg-H-nysacxqr 25,000 unit (15K-10K unit) tablet 1 tab PO DAILY lidocaine 5 % adhesive patch,medicated 1 patch topical DAILY PRN (Reason: pain) Rx Instructions: leave on most painful area for up to 12 hrs levothyroxine 25 mcg tablet 25 mcg PO DAILY Label Comments: take 1 tablet by mouth once daily calcium carbonate 500 mg calcium (1,250 mg) tablet 500 mg PO BID multivitamin Tablet 1 tab PO DAILY Prolia 60 MG/ML syringe 60 mg SQ .[id number] ipratropium bromide 21 mcg (0.03 %) [place],Non-Aerosol 2 spray INTRANASAL PRN PRN (Reason: SOB) Osteo Bi-Flex Triple Strength 750 mg-644 mg- 30 mg-1 mg Tablet 1 tab PO BID warfarin 2 mg tablet 2 mg PO SA Protocol: Dose Management Condition: Tuesday Dose/Route: 2 mg Instruction: 1 x 2 mg tablet Condition: Tuesday Dose/Route: 4 mg Instruction: 1 x 4 mg tablet Condition: Tuesday Dose/Route: 4 mg Instruction: 1 x 4 mg tablet Condition: Tuesday Dose/Route: 4 mg Instruction: 1 x 4 mg tablet Condition: Dose/Route: 4 mg Instruction: 1 x 4 mg tablet Condition: Tuesday Dose/Route: 4 mg Instruction: 1 x 4 mg tablet Condition: Tuesday Dose/Route: 4 mg Instruction: 1 x 4 mg tablet Protocol Text: Adjustment Start Date: Tuesday02/08/22 INR Value: 2.2 INR Date: 02/08/22 Recheck Date: 03/02/22 amiodarone 200 mg tablet 100 mg PO BID diltiazem HCl 120 mg capsule,extended release 24hr 120 mg PO DAILY loratadine 10 mg tablet 10 mg PO DAILY acetaminophen 500 mg Tablet 1,000 mg PO Q6H PRN PRN (Reason: Pain Score 1-10) Qty: 0 0RF oxybutynin chloride 5 mg Tablet 5 mg PO QHS 30 Days Qty: 30 0RF metoprolol tartrate 25 mg Tablet 25 mg PO BID 30 Days Qty: 60 0RF acidophilus-pectin, citrus 25 million cell -100 mg Tablet 1 tab PO BID Qty: 0 0RF vitamin B complex-folic acid 400 mcg Tablet Extended Release 1 tab PO DAILY benzonatate 200 mg capsule 200 mg PO Q8H PRN (Reason: Cough) Label Comments: take 1 capsule by mouth three times a day if needed for cough nitroglycerin 0.4 mg tablet, sublingual See Rx Instructions .ROUTE .COMPLEX Qty: 25 3RF Dose Instruction: PLACE 1 TABLET UNDER TONGUE EVERY 5 TO 15 MINUTES NEEDED FOR CHEST PAIN UNTIL RESPONSE. DO NOT EXCEED 3 DOSES PER EPISODE Rx Instructions: PLACE 1 TABLET UNDER TONGUE EVERY 5 TO 15 MINUTES NEEDED FOR CHEST PAIN UNTIL RESPONSE. DO NOT EXCEED 3 DOSES PER EPISODE Referrals / Follow Up: César Chinchilla MD [Primary Care Provider] - Within 1 Week Disposition Disposition (needs filled in before D/C Order can be placed): Home, Self Care
--- NOTE | 2022-02-25 14:10 | CASEMGMT ---
RADHA PORTER Assessment: Face to Face with pt for initial transition planning/care coordination assessment. RADHA PORTER introduced self and role at [facility], pt voices understanding and consents to assessment. Pt is A/O x4 and answers all questions appropriately at this time. Pt sitting up in bed in no distress. Care providers, pharmacy, and demographics verified/updated. Admitting Dx: Maxwell MULLIGAN PCP:Amor Specialists:Jesse cardio Bakari [facility]acy: [facility] Insurance: Maxwell MULLIGAN Prescription Benefit: yes LW/HPOA: Pt states he has a LW/DPOA and her DPOA is his sister in law Neelima Durant. He is aware this is not on file at [facility] and he may bring in to be scanned into the chart. LNOK: Neelima Durant, sister in law; Olivia Dunn, sister Living Arrangements: Pt lives alone in a single story house with 2 steps to enter with a rail. Pt reports he is I in ADL's and denies concerns at home. Transportation: Pt drives self and denies concerns with transportation. DME/HHC/SNF: Pt has a cane that he uses and a walker and shower chair that he does not use. Pt also has grab bars in the bathroom. Pt states he has HHC in the past but is unsure of the name of the agency. pt denies SNF stays. Pt states no concerns with going home at time of dc. Pt states no further concerns/needs. CM to follow. Advised pt to ask CM if any further question/concerns/needs arise, voices understanding. Pt Goal: Home Plan: Home
[2022-02-25 14:21] VITALS: BP 126/78; PULSE 75; RESP 18; TEMP 36.5; O2SAT 95
--- NOTE | 2022-02-25 14:42 | CASEMGMT ---
RADHA CM in to discuss [employer] form with patient. RN CM explained [employer] form, patient voiced understanding. Pt signed form and filed in chart. Pt provided with a copy of signed [employer] form. Patient had no further questions or concerns at this time.
--- NOTE | 2022-02-25 19:39 | DS.PCM_ITS ---
Providers Date of Admission: 02/24/22 Date of Discharge: 02/25/22 Primary Care Physician: Dr. César Chinchilla MD Reason For Visit: diarrhea Diagnosis Discharge Diagnosis (1) Gastroenteritis: Status: Acute Code(s): K52.9 - Noninfective gastroenteritis and colitis, unspecified (2) Acute kidney injury superimposed on chronic kidney disease: Status: Chronic Code(s): N17.9 - Acute kidney failure, unspecified; N18.9 - Chronic kidney disease, unspecified Plan 1. Acute gastroenteritis-exact etiology unclear #2 acute dehydration secondary to gastroenteritis #3 chronic kidney disease IIIb #4 essential hypertension #5 hypothyroidism #6 paroxysmal A. fib/a flutter Acute kidney injury was ruled out Medications at Discharge Home Medications finasteride 5 mg tablet (Proscar) 5 mg PO DAILY prostate 06/03/20 denosumab 60 mg/mL subcutaneous syringe (Prolia) 60 mg SQ .[id number] BONES 12/09/20 glucosamine 750 lp-kuqvikijnye-ncn no1 644 mg-C 30 mg-pamela 1 mg tablet (Osteo Bi-Flex Triple Strength) 1 tab PO BID bone health 05/06/21 ipratropium bromide 21 mcg (0.03 %) nasal spray 2 spray intranasal PRN PRN SOB 05/06/21 amiodarone 200 mg tablet 100 mg PO BID heart rate 10/19/21 fluticasone propionate 50 mcg/actuation nasal spray,suspension 1 spray intra nasal BID PRN Congestion 11/18/21 tamsulosin 0.4 mg capsule 0.4 mg PO DAILY bladder 11/18/21 vitamin A palmitate-beta carotene 25,000 unit (15K-10K unit) tablet 1 tab PO DAILY supplement 11/18/21 warfarin 2 mg tablet 2 mg PO SA blood thinner 11/18/21 warfarin 4 mg tablet 4 mg PO SUMOTUWETHFR BLOOD THINNER 11/18/21 diltiazem HCl 120 mg capsule,extended release 24 hr 120 mg PO DAILY heart 01/07 loratadine 10 mg tablet 10 mg PO DAILY allergies 01/07/22 acetaminophen 500 mg tablet 1,000 mg PO Q6H PRN PRN Pain Score 1-10 #0 tabs 01/19/22 acidophilus 25 million cell-pectin, citrus 100 mg tablet 1 tab PO BID #0 tabs 01/19/22 metoprolol tartrate 25 mg tablet 25 mg PO BID 30 days #60 tabs 01/19/22 oxybutynin chloride 5 mg tablet 5 mg PO QHS 30 days #30 tabs 01/19/22 nitroglycerin 0.4 mg sublingual tablet See Rx Instructions .Route .COMPLEX #25 TABLETS 02/02/22 calcium carbonate 500 mg calcium (1,250 mg) tablet 500 mg PO BID 02/17/22 levothyroxine 25 mcg tablet 25 mcg PO DAILY 02/17/22 lidocaine 5 % topical patch 1 patch topical DAILY PRN pain 02/17/22 multivitamin 1 tab PO DAILY 02/17/22 benzonatate 200 mg capsule 200 mg PO Q8H PRN Cough 02/24/22 vitamin B complex-folic acid ER 400 mcg tablet,extended release 1 tab PO DAILY SUPPLEMENT 02/24/22 Hospital Course Operations None Procedures None Summary of Care Provided Minutes Spent on Discharge: 30 Hospital Course: Patient was seen in the emergency room at [facility] for complaints of diarrhea, he had been evaluated 24 hours before and released home. Repeat labs were obtained which showed an increase in the patient's creatinine, patient was placed in observation status on MedSurg 3 given IV fluids and labs were repeated, enteric panel was obtained on the patient's stool which was negative for enteric pathogens, patient's diarrhea subsided, labs improved with hydration. On 02/25/2022, patient was seen and examined: On examination he appeared in good health and spirits. Vital signs as documented. Skin warm and dry and without o vert rashes. Neck without JVD, neck was supple, trachea midline, thyroid was normal. Lungs clear bilaterally, normal air movement was noted. Heart exam notable for regular rhythm, normal sounds and absence of murmurs, rubs or gallops. Abdomen unremarkable and without evidence of organomegaly, masses, or abdominal aortic enlargement. Bowel sounds are present, abdomen is not distended. Extremities nonedematous, no cyanosis was noted, no clubbing was noted. Neuro: Cranial nerves II through XII are grossly intact, no focal motor deficits were noted, sensation to light touch and pinprick intact, motor exam 5/5 throughout. Psych: Patient is alert and oriented x3, he does not appear anxious or depressed, he does not appear agitated. Patient was discharged home in stable condition on 02/25/2022. Weight / BMI Weight Weight: 69.3 kg Body Mass Index (BMI) 23.2 ABG / Lab / Microbiology Data Result Diagrams: 02/25/22 03:52 02/25/22 03:52 Laboratory: Laboratory Results - last 24 hr 02/25/22 03:52: Sodium 142, Potassium 3.8, Chloride 113 H, Carbon Dioxide 23.0, Anion Gap 6, BUN 41 H, Creatinine 2.23 H, Estim Creat Clear Calc 25.56, Est GFR (MDRD) Af Amer 37 L, Est GFR (MDRD) Non-Af 30 L, BUN/Creatinine Ratio 18.4, Glucose 99, Calcium 7.5 L 02/25/22 03:52: WBC 9.1, RBC 2.70 L, Hgb 8.9 L, Hct 27.7 L, MCV 102.6 H, MCH 33.0 H, MCHC 32.1, RDW Std Deviation 58.4 H, RDW Coeff of Pablo 15.6 H, Plt Count 258, MPV 9.4, Immature Gran % (Auto) 0.500, Neut % (Auto) 77.2 H, Lymph % (Auto) 9.6 L, Alfalfa % (Auto) 10.3 H, Eos % (Auto) 2.0, Baso % (Auto) 0.4, Absolute Neuts (auto) 7.0, Absolute Lymphs (auto) 0.88, Nucleated RBC % 0 02/25/22 03:52: PT 35.9 H, INR 3.6 Microbiology: Microbiology 02/24/22 12:35 Stool Enteric Bacteriology - Final D/C Instructions Discharge Diet: No restrictions Weight Bearing Status: Full weight bearing Meaningful Use Info Meaningful Use Diagnoses (Choose all that apply): None applicable Discharge Plan Admission Admit Date/Time: 02/24/22 14:29 Primary Reason for Your Visit: Diarrhea Attending Provider: Nagi Shanks Primary Care Provider: César Chinchilla Consulting Providers: Mehrdad Eagle Discharge Orders/Prescriptions Prescriptions: Continued finasteride [Proscar] 5 mg tablet 5 mg PO DAILY warfarin 4 mg tablet 4 mg PO SUMOTUWETHFR Protocol: Dose Management Condition: Tuesday Dose/Route: 2 mg Instruction: 1 x 2 mg tablet Condition: Tuesday Dose/Route: 4 mg Instruction: 1 x 4 mg tablet Condition: Tuesday Dose/Route: 4 mg Instruction: 1 x 4 mg tablet Condition: Tuesday Dose/Route: 4 mg Instruction: 1 x 4 mg tablet Condition: Dose/Route: 4 mg Instruction: 1 x 4 mg tablet Condition: Tuesday Dose/Route: 4 mg Instruction: 1 x 4 mg tablet Condition: Tuesday Dose/Route: 4 mg Instruction: 1 x 4 mg tablet Protocol Text: Adjustment Start Date: Tuesday02/08/22 INR Value: 2.2 INR Date: 02/08/22 Recheck Date: 03/02/22 Rx Instructions: 4 mg PO Tuesday through Tuesday fluticasone propionate 50 mcg/actuation spray,suspension 1 spray intranasal BID PRN (Reason: Congestion) Rx Instructions: administer into each nostril tamsulosin 0.4 mg capsule 0.4 mg PO DAILY vitamin a [id number]-W-[id number] 25,000 unit (15K-10K unit) tablet 1 tab PO DAILY lidocaine 5 % adhesive patch,medicated 1 patch topical DAILY PRN (Reason: pain) Rx Instructions: leave on most painful area for up to 12 hrs levothyroxine 25 mcg tablet 25 mcg PO DAILY Label Comments: take 1 tablet by mouth once daily calcium carbonate 500 mg calcium (1,250 mg) tablet 500 mg PO BID multivitamin Tablet 1 tab PO DAILY Prolia 60 MG/ML syringe 60 mg SQ .[id number] ipratropium bromide 21 mcg (0.03 %) [place],Non-Aerosol 2 spray INTRANASAL PRN PRN (Reason: SOB) Osteo Bi-Flex Triple Strength 750 mg-644 mg- 30 mg-1 mg Tablet 1 tab PO BID warfarin 2 mg tablet 2 mg PO SA Protocol: Dose Management Condition: Tuesday Dose/Route: 2 mg Instruction: 1 x 2 mg tablet Condition: Tuesday Dose/Route: 4 mg Instruction: 1 x 4 mg tablet Condition: Tuesday Dose/Route: 4 mg Instruction: 1 x 4 mg tablet Condition: Tuesday Dose/Route: 4 mg Instruction: 1 x 4 mg tablet Condition: Dose/Route: 4 mg Instruction: 1 x 4 mg tablet Condition: Tuesday Dose/Route: 4 mg Instruction: 1 x 4 mg tablet Condition: Tuesday Dose/Route: 4 mg Instruction: 1 x 4 mg tablet Protocol Text: Adjustment Start Date: Tuesday02/08/22 INR Value: 2.2 INR Date: 02/08/22 Recheck Date: 03/02/22 amiodarone 200 mg tablet 100 mg PO BID diltiazem HCl 120 mg capsule,extended release 24hr 120 mg PO DAILY loratadine 10 mg tablet 10 mg PO DAILY acetaminophen 500 mg Tablet 1,000 mg PO Q6H PRN PRN (Reason: Pain Score 1-10) Qty: 0 0RF oxybutynin chloride 5 mg Tablet 5 mg PO QHS 30 Days Qty: 30 0RF metoprolol tartrate 25 mg Tablet 25 mg PO BID 30 Days Qty: 60 0RF acidophilus-pectin, citrus 25 million cell -100 mg Tablet 1 tab PO BID Qty: 0 0RF vitamin B complex-folic acid 400 mcg Tablet Extended Release 1 tab PO DAILY benzonatate 200 mg capsule 200 mg PO Q8H PRN (Reason: Cough) Label Comments: take 1 capsule by mouth three times a day if needed for cough nitroglycerin 0.4 mg tablet, sublingual See Rx Instructions .ROUTE .COMPLEX Qty: 25 3RF Dose Instruction: PLACE 1 TABLET UNDER TONGUE EVERY 5 TO 15 MINUTES NEEDED FOR CHEST PAIN UNTIL RESPONSE. DO NOT EXCEED 3 DOSES PER EPISODE Rx Instructions: PLACE 1 TABLET UNDER TONGUE EVERY 5 TO 15 MINUTES NEEDED FOR CHEST PAIN UNTIL RESPONSE. DO NOT EXCEED 3 DOSES PER EPISODE Referrals / Follow Up: César Chinchilla MD [Primary Care Provider] - Within 1 Week Disposition Disposition (needs filled in before D/C Order can be placed): Home, Self Care Charges/Coding Visit Charges OBSV E&M: 58610 Observation care discharge
== END 2022-02-25 16:40 | disposition home or self-care (01) ==
LOC: ED 14:27 → MS3 15:00
PROVIDERS: Admitting Provider Family Medicine; Emergency Provider Emergency Medicine; PCP Family Medicine; Visit Provider Internal Medicine
DX: K52.9 Noninfective gastroenteritis and colitis, unspecified (principal); N17.9 Acute kidney failure, unspecified; I50.32 Chronic diastolic (congestive) heart failure; I13.0 Hypertensive heart and chronic kidney disease with heart failure and stage 1 through stage 4 chronic kidney disease, or unspecified chronic kidney disease; I27.21 Secondary pulmonary arterial hypertension; I48.0 Paroxysmal atrial fibrillation; I48.92 Unspecified atrial flutter; N18.32 Chronic kidney disease, stage 3b; I25.10 Atherosclerotic heart disease of native coronary artery without angina pectoris; E86.0 Dehydration; E78.5 Hyperlipidemia, unspecified; N40.0 Benign prostatic hyperplasia without lower urinary tract symptoms; K21.9 Gastro-esophageal reflux disease without esophagitis; I25.2 Old myocardial infarction; G47.30 Sleep apnea, unspecified; Z79.899 Other long term (current) drug therapy; Z79.01 Long term (current) use of anticoagulants; Z79.51 Long term (current) use of inhaled steroids; Z79.890 Hormone replacement therapy; E03.9 Hypothyroidism, unspecified; M19.90 Unspecified osteoarthritis, unspecified site
CPT/HCPCS: 36415; 80048; 85025; 85610; 87506; 96361; 96374; 99218; 99251; 99285; J7030; A4216; G0378; G0463; J2405

== ENCOUNTER → 2022-03-02 | Outpatient (CLI) | payer MEDICARE, OTHER, SELFPAY ==
[2022-03-02 12:30] LABS: Erythrocyte Sedimentation Rate 19 mm/hr (0-20)
[2022-03-02 12:34] LABS: Absolute Neutrophil Count 7.6 X10^3/uL (2.0-7.7); Basophil# 0.06 X10^3/uL; Basophil% 0.6 % (0-1); Eosinophil# 0.22 X10^3/uL; Eosinophils% 2.4 % (0-5); Hematocrit 30.3 % (40-54); Hemoglobin 9.7 g/dL (13.0-16.5); Lymphocyte % 7.5 % (19-41); Mean Corpuscular Hgb 32.7 pg (27.0-32.0); Mean Platelet Vol. 10.1 fl (6.2-12.0); Monocyte% 7.5 % (0-10); NRBC Flagged by Analyzer 0 % (0-5); Neutrophil # 7.59 X10^3/uL (2.7-7.7); Neutrophil % 81.4 % (47-70); Platelet Count 335 K/mm3 (150-450); RBC Distribution Width SD 58.7 fl (35.1-43.9); Red Blood Count 2.97 M/mm3 (4.6-6.2); White Blood Count 9.3 K/mm3 (4.4-11.0)
[2022-03-02 13:01] LABS: ALB/GLOB Ratio 0.8 RATIO (0.9-2.4); AST(SGOT) 30 U/L (15-37); Alanine Aminotransfer ALT/SGPT 43 U/L (16-61); Albumin, Serum 3.2 g/dL (3.2-5.0); Alkaline Phosphatase 56 U/L (45-117); Anion Gap 7 (5-15); BUN 25 mg/dL (7-18); BUN/Creat Ratio 14.5 RATIO (10-20); Calcium,Total 8.7 mg/dL (8.5-10.1); Chloride 109 mmol/L (98-107); Creatinine, Serum 1.72 mg/dL (0.70-1.30); EST Glomerular Filtration Rate 41 mL/min (>60); Est Glom Filt Rate - Afr Amer 49 mL/min (>60); Ferritin 41 ng/mL (26-388); Globulin 4.1 g/dL (2.2-4.2); Glucose 97 mg/dL (74-106); Potassium 3.3 mmol/L (3.5-5.1); Protein, Total 7.3 g/dL (6.4-8.2); Sodium Level 140 mmol/L (136-145)
== END | disposition home or self-care (01) ==
LOC: MFPLAB 11:18
PROVIDERS: PCP Family Medicine; Visit Provider Family Medicine
DX: R19.7 Diarrhea, unspecified (principal); D64.9 Anemia, unspecified
CPT/HCPCS: 36415; 80053; 82728; 85025; 85652

== ENCOUNTER → 2022-03-04 | Outpatient (CLI) | payer MEDICARE, OTHER, SELFPAY | END | disposition home or self-care (01) | PROVIDERS: PCP Family Medicine; Visit Provider Family Medicine | DX: R19.7 Diarrhea, unspecified (principal) | CPT/HCPCS: 87493 ==

== ENCOUNTER → 2022-03-18 | Outpatient (CLI) | payer MEDICARE, OTHER, SELFPAY ==
[2022-03-25 16:45] LABS: Pancreatic Elastase, Fecal 104 (>200)
== END | disposition home or self-care (01) ==
LOC: LABSPEC 17:36
PROVIDERS: PCP Family Medicine; Visit Provider Family Medicine
DX: A04.72 Enterocolitis due to Clostridium difficile, not specified as recurrent (principal)
CPT/HCPCS: 82653; 87493

== ENCOUNTER 2022-03-24 13:11 | Outpatient (RCR) | payer MEDICARE, OTHER, SELFPAY ==
[2022-03-24 13:43] LABS: International Normalized Ratio 2.7; Prothrombin Time (Protime)PT. 28.5 SECONDS (11.7-14.9)
== END 2022-03-28 03:19 | disposition home or self-care (01) ==
LOC: LAB 13:11
PROVIDERS: PCP Family Medicine; Referring Provider Internal Medicine Cardiovascular Disease; Visit Provider Internal Medicine Cardiovascular Disease
DX: I48.91 Unspecified atrial fibrillation (principal); Z79.01 Long term (current) use of anticoagulants
CPT/HCPCS: 36415; 85610

== ENCOUNTER 2022-04-16 11:53 | Outpatient (RCR) | payer MEDICARE, OTHER, SELFPAY ==
[2022-04-16 12:39] LABS: International Normalized Ratio 2.7; Prothrombin Time (Protime)PT. 28.1 SECONDS (11.7-14.9)
== END 2022-04-16 18:00 | disposition home or self-care (01) ==
LOC: LAB 11:53
PROVIDERS: PCP Family Medicine; Referring Provider Internal Medicine Cardiovascular Disease; Visit Provider Internal Medicine Cardiovascular Disease
DX: I48.91 Unspecified atrial fibrillation (principal); Z79.01 Long term (current) use of anticoagulants
CPT/HCPCS: 36415; 85610

== ENCOUNTER → 2022-04-23 | Outpatient (CLI) | payer MEDICARE, OTHER, SELFPAY ==
[2022-04-23 15:01] LABS: Hematocrit 35.8 % (40-54); Hemoglobin 11.6 g/dL (13.0-16.5); Mean Corp Hgb Conc 32.4 g/dL (32-36); Mean Corpuscular Hgb 31.5 pg (27.0-32.0); Mean Corpuscular Volume 97.3 fL (80-94); Mean Platelet Vol. 9.8 fl (6.2-12.0); Platelet Count 406 K/mm3 (150-450); RBC Distribution Width CV 17.6 % (11.6-14.6); RBC Distribution Width SD 62.4 fl (35.1-43.9); Red Blood Count 3.68 M/mm3 (4.6-6.2); White Blood Count 9.7 K/mm3 (4.4-11.0)
[2022-04-23 15:23] LABS: ALB/GLOB Ratio 0.8 RATIO (0.9-2.4); AST(SGOT) 168 U/L (15-37); Alanine Aminotransfer ALT/SGPT 193 U/L (16-61); Albumin, Serum 3.3 g/dL (3.2-5.0); Alkaline Phosphatase 82 U/L (45-117); Anion Gap 5 (5-15); BUN 32 mg/dL (7-18); BUN/Creat Ratio 14.2 RATIO (10-20); Chloride 106 mmol/L (98-107); Creatinine, Serum 2.26 mg/dL (0.70-1.30); EST Glomerular Filtration Rate 30 mL/min (>60); Est Glom Filt Rate - Afr Amer 36 mL/min (>60); Globulin 4.4 g/dL (2.2-4.2); Glucose 97 mg/dL (74-106); Potassium 4.2 mmol/L (3.5-5.1); Protein, Total 7.7 g/dL (6.4-8.2); Sodium Level 140 mmol/L (136-145); T4 Free Direct 1.54 ng/dL (0.76-1.46); Thyroid Stim Hormone (TSH) 3.31 uIU/mL (0.358-3.74)
== END | disposition home or self-care (01) ==
PROVIDERS: PCP Family Medicine; Referring Provider Nurse Practitioner Family; Visit Provider Nurse Practitioner Family
DX: R53.83 Other fatigue (principal)
CPT/HCPCS: 36415; 80053; 82652; 84439; 84443; 85027

== ENCOUNTER → 2022-04-27 | Outpatient (CLI) | payer MEDICARE, OTHER, SELFPAY ==
[2022-04-27 15:49] LABS: BUN 42 mg/dL (7-18); Creatinine, Serum 2.34 mg/dL (0.70-1.30); EST Glomerular Filtration Rate 29 mL/min (>60); Glucose 88 mg/dL (74-106)
[2022-04-27 15:50] LABS: Anion Gap 7 (5-15); BUN/Creat Ratio 17.9 RATIO (10-20); Calcium,Total 9.1 mg/dL (8.5-10.1); Chloride 106 mmol/L (98-107); Est Glom Filt Rate - Afr Amer 35 mL/min (>60); Potassium 3.6 mmol/L (3.5-5.1); Sodium Level 141 mmol/L (136-145)
[2022-04-27 15:57] LABS: Vitamin B12 1095 pg/mL (211-911)
[2022-04-27 23:09] LABS: Ferritin 39 ng/mL (26-388); Free T3 2.1 pg/mL (2.18-3.98); Iron 31 ug/dL (65-175); T4 Free Direct 1.77 ng/dL (0.76-1.46)
[2022-05-02 11:21] LABS: Copper, Serum or Plasma 109 ug/dL (69-132); Zinc, Plasma or Serum 63 ug/dL (44-115)
== END | disposition home or self-care (01) ==
LOC: MFPLAB 12:06
PROVIDERS: Nurse Practitioner Family; PCP Family Medicine; Visit Provider Family Medicine
DX: D64.9 Anemia, unspecified (principal); R53.83 Other fatigue; K86.81 Exocrine pancreatic insufficiency; K29.00 Acute gastritis without bleeding
CPT/HCPCS: 36415; 80048; 82525; 82607; 82728; 82746; 83540; 84439; 84481; 84630

== ENCOUNTER 2022-05-01 10:45 | Emergency (ER) | payer MEDICARE, OTHER, SELFPAY ==
[2022-05-01] VITALS (7 sets, daily range): BP systolic 111–138; BP diastolic 71–88; PULSE 79–130; RESP 14–26; TEMP 36.3; O2SAT 93–100; BMI 22.2
[2022-05-01] MEDS: Heparin Injection (Vial) 5,000 UNIT/ML VIAL 3980 UNIT IV (10:52)
[2022-05-01] MEDS: Aspirin 81 MG TAB.CHEW 324 MG PO (10:53)
--- NOTE | 2022-05-01 10:54 | EKG12_ITS ---
Test Reason : CP Blood Pressure : / mmHG Vent. Rate : 142 BPM Atrial Rate : 322 BPM P-R Int : 000 ms QRS Dur : 100 ms QT Int : 330 ms P-R-T Axes : 000 027 028 degrees QTc Int : 507 ms Atrial flutter with variable A-V block Marked ST abnormality, possible inferior subendocardial injury Abnormal ECG Confirmed by JOSE KASPER, JESSICA ([id number]), assignment editor CIPRIANO GATES ([id number]) on 05/04/2022 9:06:15 AM Referred By: Carol Dave Confirmed By:CAM DAVE MD
--- NOTE | 2022-05-01 10:54 | RAD_ITS ---
STUDY: X-RAY CHEST REASON FOR EXAM: Male, 81 years old patient with chest pain. TECHNIQUE: Single AP portable view of the chest. COMPARISON: 01/06/2022. FINDINGS: Cardiac monitoring leads are present. Lungs are hyperexpanded. There is mild elevation and eventration of the right hemidiaphragm. There is no demonstrated pleural abnormality. There is mild cardiac enlargement. There is widening of the superior mediastinum, possibly secondary to tortuous thoracic aorta, aortic aneurysm or lymphadenopathy. Normal visualized pulmonary arteries. There is atherosclerotic tortuosity of the aortic arch and descending thoracic aorta. The patient has had kyphoplasty of several lower thoracic and lumbar spine fractures. Normal visualized ribs, clavicles, and shoulders. There is no demonstrated abnormality of the visualized soft tissue structures of the upper abdomen. RAD/Chest 1 View (Portable) IMPRESSION: Widening of the superior mediastinum since previous study may be secondary to aortic aneurysm. Electronically Signed: Anne Sandhu MD at 11:27 EDT ,
[2022-05-01] MEDS: dilTIAZem 25 MG/5 ML Vial 20 MG IV BOLUS (11:06)
[2022-05-01 11:10] LABS: Absolute Lymphocyte Count 1.44 X10^3/uL (0.83-4.51); Absolute Neutrophil Count 8.5 X10^3/uL (2.0-7.7); Basophil# 0.07 X10^3/uL; Basophil% 0.6 % (0-1); Eosinophil# 0.21 X10^3/uL; Eosinophils% 1.9 % (0-5); Hematocrit 36.6 % (40-54); Hemoglobin 12.1 g/dL (13.0-16.5); Lymphocyte # 1.44 X10^3/ul (0.83-4.51); Lymphocyte % 12.9 % (19-41); Mean Corp Hgb Conc 33.1 g/dL (32-36); Mean Corpuscular Hgb 30.9 pg (27.0-32.0); Mean Corpuscular Volume 93.4 fL (80-94); Mean Platelet Vol. 9.8 fl (6.2-12.0); Monocyte# 0.92 X10^3/uL; Monocyte% 8.3 % (0-10); NRBC Flagged by Analyzer 0 % (0-5); Neutrophil # 8.45 X10^3/uL (2.7-7.7); Neutrophil % 75.8 % (47-70); Platelet Count 464 K/mm3 (150-450); RBC Distribution Width SD 60.9 fl (35.1-43.9); Red Blood Count 3.92 M/mm3 (4.6-6.2); White Blood Count 11.2 K/mm3 (4.4-11.0)
[2022-05-01 11:15] LABS: International Normalized Ratio 1.9; Prothrombin Time (Protime)PT. 21.2 SECONDS (11.7-14.9)
[2022-05-01 11:16] LABS: Partial Thromboplast Time 34.3 Seconds (24.1-36.2)
[2022-05-01 11:23] LABS: Anion Gap 11 (5-15); BUN 43 mg/dL (7-18); BUN/Creat Ratio 16.5 RATIO (10-20); Calcium,Total 9.2 mg/dL (8.5-10.1); Chloride 101 mmol/L (98-107); Creatinine, Serum 2.61 mg/dL (0.70-1.30); EST Glomerular Filtration Rate 25 mL/min (>60); Est Glom Filt Rate - Afr Amer 31 mL/min (>60); Estimated Creatinine Clearance 21.17 ml/min; Glucose 226 mg/dL (74-106); Potassium 3.1 mmol/L (3.5-5.1); Sodium Level 138 mmol/L (136-145); Troponin-I HS 20 pg/mL (3.0-78.0)
--- NOTE | 2022-05-01 11:45 | ED.VIS.CHEST ---
HPI History of Present Illness Chief Complaint: Chest Pain Detail of Chief Complaint: Heartburn indigestion upon awaking now complaining of pressure and sensatio Informant: patient Onset/Context/Timing Onset: Today (Awoke at 0800.) Activity at onset: sudden Timing: Continuous Quality: Positive for Burning and Pressure Location: Substernal (Presently) and - (Epigastric initially) Current Severity: Severe Maximum Severity: Severe Worsened By: Nothing Relieved By: Nothing Associated Symptoms: Positive for Nausea and Dyspnea; Negative for Vomiting, Diaphoresis, Cough, Fever, Lightheadedness, Acid Reflux or Palpitations Narrative Narrative: Patient is an 81-year-old male with history of paroxysmal atrial fibrillation and atrial flutter as well as coronary disease who presents with indigestion heartburn that he noted upon awakening. He now complains of pressure in the middle of his chest. He does report shortness of breath. No diaphoresis or vomiting. He does endorse nausea. He seems anxious. He denies black or maroon-colored stool. He has not been compliant with his anticoagulant. He denies hematuria. Nu[place] bleeding of his gums. [place] bruising easily. He denies history of PE or DVT. Patient was brought to the emergency part by neighbor. Prior Similar Symptoms: Yes and With Prior LA CVD Risk Factors: Positive for Hypertension and Hypercholesterolemia; Negative for Diabetes, Family History 1' </=55 or Smoking PE Risk Factors: Negative for Recent Travel/Surgery, Recent Immobilization, Prior DVT or PE, Cancer or OCP + Smoking + >/=35 TAD Risk Factors: Positive for Hypertension; Negative for Marfan's Syndrome or Family History [facility] Medical History Acute blood loss anemia Acute diverticulitis of intestine Acute gastrointestinal bleeding Acute kidney injury superimposed on chronic kidney disease Atherosclerotic heart disease of [place] coronary artery without angina pectoris Atrial fibrillation Atypical atrial flutter (12/2020) Benign prostatic hyperplasia BPH (benign prostatic hyperplasia) Cancer Chronic heart failure with preserved ejection fraction (HFpEF) Chronic kidney disease Chronic renal insufficiency CPAP (continuous positive airway pressure) dependence Debility Dysphagia Elevated liver enzymes Essential (primary) hypertension GERD (gastroesophageal reflux disease) GI bleed (2012) History of colon polyps History of hyperthyroidism HLD (hyperlipidemia) Hypertension Kidney disease Kidney stones Myocardial infarct Non-rheumatic tricuspid valve insufficiency Non-smoker Nonrheumatic mitral (valve) insufficiency 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 Osteoarthritis Paroxysmal atrial fibrillation Secondary pulmonary arterial hypertension Sleep apnea Stage 3b chronic kidney disease Thoracic aortic aneurysm (TAA) Home Medications finasteride 5 mg tablet (Proscar) 5 mg PO DAILY prostate 06/03/20 [History Last Taken 02/24/22] denosumab 60 mg/mL subcutaneous syringe (Prolia) 60 mg SQ .[id number] BONES 12/09/20 [History Last Taken 3 Months Ago ~11/24/21] glucosamine 750 [id number] no1 644 mg-C 30 mg-pamela 1 mg tablet (Osteo Bi-Flex Triple Strength) 2 tab PO DAILY bone health 05/06/21 [History Last Taken 02/23/22] ipratropium bromide 21 mcg (0.03 %) nasal spray 2 spray intranasal PRN PRN SOB 05/06/21 [History Last Taken 02/23/22] tamsulosin 0.4 mg capsule 0.4 mg PO QHS bladder 11/18/21 [History Last Taken 02/24/22] warfarin 2 mg tablet 2 mg PO FR blood thinner 11/18/21 [History Last Taken 02/20/22] warfarin 4 mg tablet 4 mg PO SUMOTUWETHSA BLOOD THINNER 11/18/21 [History Last Taken 02/23/22] diltiazem HCl 120 mg capsule,extended release 24 hr 120 mg PO DAILY heart 01/07/22 [History Last Taken 02/24/22] nitroglycerin 0.4 mg sublingual tablet See Rx Instructions .Route .COMPLEX #25 TABLETS 02/02/22 [Rx Last Taken 02/24/22] levothyroxine 25 mcg tablet 25 mcg PO DAILY 02/17/22 [History Last Taken 02/24/22] lidocaine 5 % topical patch 1 patch topical DAILY PRN pain 02/17/22 [History Last Taken 2 Days Ago ~02/22/22] amiodarone 100 mg tablet 100 mg PO BID 05/01/22 [History Last Taken Unknown] amoxicillin 875 mg tablet 875 mg PO BID 05/01/22 [History Last Taken Unknown] baclofen 5 mg tablet 5 mg PO TID PRN muscle spasms 05/01/22 [History Last Taken Unknown] beta carotene 25,000 unit tablet 25,000 unit PO DAILY 05/01/22 [History Last Taken Unknown] bisacodyl 5 mg tablet,delayed release (Dulcolax (bisacodyl)) 5 mg PO PRN PRN Constipation 05/01/22 [History Last Taken Unknown] bisacodyl 5 mg tablet,delayed release (Dulcolax (bisacodyl)) 5 mg PO QHS 05/01/22 [History Last Taken Unknown] coenzyme Q10 100 mg capsule (Co Q-10) 100 mg PO DAILY 05/01/22 [History Last Taken Unknown] hydralazine 25 mg tablet 12.5 mg PO TID 05/01/22 [History Last Taken Unknown] isosorbide mononitrate 30 mg tablet,extended release 24 hr 30 mg PO DAILY 05/01/22 [History Last Taken Unknown] metoprolol tartrate 25 mg tablet 12.5 mg PO BID 05/01/22 [History Last Taken Unknown] pantoprazole 40 mg tablet,delayed release 40 mg PO DAILY 05/01/22 [History Last Taken Unknown] polysaccharide iron complex 50 mg iron tablet 50 mg PO DAILY 05/01/22 [History Last Taken Unknown] vitamin B complex 1 cap PO BID 05/01/22 [History Last Taken Unknown] Allergy/AdvReac Type Severity Reaction Status Date / Time diclofenac Allergy rash Verified 05/01/22 11:02 prednisone Allergy Rash Verified 05/01/22 11:02 Family History Father Cancer Prostate cancer Mother Hypertension Sister Hypertension Surgical History History of back surgery History of cardioversion (06/18/19) History of coronary artery stent placement (08/04/00) History of electrophysiologic study (08/08/00) History of hemorrhoidectomy History of hernia repair History of left heart catheterization (07/17/12) History of Zenaida fundoplication History of radiofrequency ablation procedure for cardiac arrhythmia (11/11/11) Social History household members: none Smoking Status: Never smoker alcohol intake: never substance use type: does not use caffeine: No ROS ROS ED Constitutional Constitutional ED: Denies chills, fever(s), subjective, sweats or weight loss Eyes Eyes: Reports none; Denies blurry vision, change in vision or diplopia ENT ENT ED: Denies ear pain, rhinorrhea or sore throat Cardiovascular Cardiovascular: Reports as per HPI; Denies orthopnea or paroxysmal nocturnal dyspnea Respiratory/Chest Respiratory/Chest: Reports dyspnea and dyspnea on exertion; Denies cough, orthopnea or paroxysmal nocturnal dyspnea Gastrointestinal Gastrointestinal: Reports abdominal pain and nausea; Denies constipation, diarrhea, melena or vomiting Genitourinary Genitourinary ED: Denies dysuria, hematuria or urinary frequency Musculoskeletal Musculoskeletal: Denies arthralgias, back pain, myalgias or neck pain Integumentary Denies abscess, Abrasions or rash Neurologic Neurologic: Denies headache(s), paresthesias or weakness Psychiatric Psychiatric: Reports anxiety; Denies depression or suicidal ideation Endocrine Endocrinology: Denies cold intolerance, heat intolerance or polydipsia Hematologic/Lymphatic Hematologic/Lymphatic: Denies easy bleeding, easy bruising or lymphadenopathy EXAM Physical Exam Const Vital Signs: 05/01/22 10:46 05/01/22 10:50 05/01/22 11:00 Temperature 97.3 F L Temperature Source Oral Pulse Rate 129 H Respiratory Rate 16 14 Respiratory Effort Short of Breath Blood Pressure 137/88 H 137/88 H Blood Pressure Mean 104 Pulse Ox 100 Oxygen Delivery Method Room Air Oxygen Flow Rate (L/min) 05/01/22 11:03 05/01/22 11:04 05/01/22 11:04 Temperature 97.3 F L 97.3 F L Temperature Source Temporal Temporal Pulse Rate 115 H 130 H Respiratory Rate 17 17 Respiratory Effort Blood Pressure 138/77 H 138/77 H Blood Pressure Mean 97 97 Pulse Ox 100 100 Oxygen Delivery Method Nasal Cannula Nasal Cannula Nasal Cannula Oxygen Flow Rate (L/min) 2 2 2 05/01/22 11:08 05/01/22 12:00 05/01/22 13:03 Temperature Temperature Source Pulse Rate 82 80 Respiratory Rate 14 26 H Respiratory Effort Short of Breath Labored Blood Pressure 116/75 111/79 Blood Pressure Mean 88 89 Pulse Ox 95 93 Oxygen Delivery Method Nasal Cannula Nasal Cannula Oxygen Flow Rate (L/min) 2 2 05/01/22 14:06 Temperature Temperature Source Pulse Rate 79 Respiratory Rate 14 Respiratory Effort Blood Pressure 116/71 Blood Pressure Mean 86 Pulse Ox 100 Oxygen Delivery Method Nasal Cannula Oxygen Flow Rate (L/min) 2 Positive well developed Constitutional Narrative: Patient appears anxious. He is holding his chest. General Appearance ED: well developed; Negative for NAD or pallor HEENT Reports moist mucous membranes HEENT Narrative: Nares patent. Ears normal. Uvula midline. No deviation tongue with protrusion. No erythema or exudate the posterior pharynx. Eyes PERRL and EOMs intact bilaterally General Eye ED: Negative for pale conjunctiva or scleral icterus Neck no lymphadenopathy, supple and no JVD Neck Narrative: There is no JVD. There is no carotid bruit. Chest Wall inspection of chest normal and palpation of chest normal Resp No normal respiratory effort and clear to auscultation bilaterally Cardio no murmurs Rate: tachycardic Rhythm: abnormal rhythm irregularly irregular Peripheral Pulses: pulses 2+ throughout GI normal to inspection, nondistended, normoactive bowel sounds, soft to palpation, non-tender and non-distended; Negative for hepatosplenomegaly or no masses GI Narrative: No palp pulsatile mass. No abdominal bruit. Back/Spine no CVA tenderness and no thoracic nor lumbar tenderness Extremity normal to inspection General Extremety ED: Negative for pulses abnormal or tenderness General Extremity: Negative for pulses abnormal Neuro oriented x3, CN's II-XII intact bilaterally and no sensory deficits noted Sensorium / Orientation: awake and alert Motor Exam: strength 5/5 throughout Skin no rashes or lesions noted and no wounds General Skin Exam: Negative for jaundice or pallor MDM MDM MDM Narrative Medical decision making narrative: Patient had findings consistent or concerning for posterior LA. Overlooked that the fact the patient is in a flutter with variable block. His ST changes are due to the a flutter. STEMI was called. The STEMI was canceled. He did receive aspirin and heparin. Will treat patient's atrial flutter with variable block with Cardizem. Will obtain repeat EKG. Cardiac work-up was undertaken since this may represent ischemia due to his rapid heart rate. Lab Data Attestation: I reviewed the patient's lab results. Lab results narrative: White count is slightly elevated and is nonspecific. Coags are unremarkable. He is INR is subtherapeutic. Electrolytes reveal potassium of 3.1. Creatinine is 2.61. Glucose is elevated to 26. CO2 and anion gap. First troponin is 20. 2-hour troponin has been ordered. Patient has been stable since receiving the Cardizem. His rate has been controlled. 2-hour troponin is pending., 1251. 2-hour troponin is 18 with a delta of -2. Suspect patient's chest discomfort was due to the A. fib/flutter with RVR. Since his troponin is normal. He will be discharged home to follow-up with his executive compensation analyst. Labs: Laboratory Results - last 24 hr 05/01/22 05/01/22 05/01/22 11:05 11:05 11:05 WBC 11.2 H RBC 3.92 L Hgb 12.1 L Hct 36.6 L MCV 93.4 MCH 30.9 MCHC 33.1 RDW Std Deviation 60.9 H RDW Coeff of Pablo 18.0 H Plt Count 464 H MPV 9.8 Immature Gran % (Auto) 0.500 Neut % (Auto) 75.8 H Lymph % (Auto) 12.9 L [place] % (Auto) 8.3 Eos % (Auto) 1.9 Baso % (Auto) 0.6 Absolute Neuts (auto) 8.5 H Absolute Lymphs (auto) 1.44 Nucleated RBC % 0 PT 21.2 H INR 1.9 APTT 34.3 Sodium 138 Potassium 3.1 L Chloride 101 Carbon Dioxide 26.0 Anion Gap 11 BUN 43 H Creatinine 2.61 H Estim Creat Clear Calc 21.17 Est GFR (MDRD) Af Amer 31 L Est GFR (MDRD) Non-Af 25 L BUN/Creatinine Ratio 16.5 Glucose 226 H Calcium 9.2 Troponin I High Sens 20 05/01/22 12:58 WBC RBC Hgb Hct MCV MCH MCHC RDW Std Deviation RDW Coeff of Pablo Plt Count MPV Immature Gran % (Auto) Neut % (Auto) Lymph % (Auto) Hodgeman % (Auto) Eos % (Auto) Baso % (Auto) Absolute Neuts (auto) Absolute Lymphs (auto) Nucleated RBC % PT INR APTT Sodium Potassium Chloride Carbon Dioxide Anion Gap BUN Creatinine Estim Creat Clear Calc Est GFR (MDRD) Af Amer Est GFR (MDRD) Non-Af BUN/Creatinine Ratio Glucose Calcium Troponin I High Sens 18 Radiography Chest X-Ray - ED: 1 View (He is [place] is suboptimal. He is rotated. I believe this is given the false impression of a wide mediastinum. Cardiac silhouette and size unremarkable. Osseous trucks unremarkable.) Diagnostic Testing: Clinical Impression(s) from Imaging Studies Chest X-Ray 05/01/22 10:54 IMPRESSION: Widening of the superior mediastinum since previous study may be secondary to aortic aneurysm. Electronically Signed: Anne Sandhu MD at 11:27 EDT , EKG Initial EKG: Attestation: I personally reviewed and interpreted this EKG as follows: Interpretation: Atrial Flutter (Variable block. Heart rate is 142. QRS duration is 100 ms. QT duration 330 ms. [place] is normal. There is ST elevation in aVR. There is depression in lead I and II and V6. There is also ST depression in V2 V3 and V4 concerning for posterior ischemia.) Prior EKG tracings: available for review Prior: Changed Follow-up EKG: Attestation: I personally reviewed and interpreted this EKG as follows: Interpretation: Atrial Flutter (Ventricular rate is 89. QRS duration 90 ms. QT duration 388 ms. [place] is normal. The ischemic changes noted on prior EKG have resolved. There is nonspecific changes noted versus artifact.) Discharge Plan Triage Chief Complaint: Chest Pain ED Provider: Ernesto King Dx/Rx/DC Orders Clinical Impression: Atrial flutter with rapid ventricular response, Essential (primary) hypertension, Anticoagulant long-term use, History of coronary artery disease, Chest pressure Instructions: ED Atrial Flutter, ED Chest Pain, Uncertain Cause Prescriptions: No Action finasteride [Proscar] 5 mg tablet 5 mg PO DAILY warfarin 4 mg tablet 4 mg PO PRIYANKTSHANNAN Protocol: Dose Management Condition: Tuesday Dose/Route: 2 mg Instruction: 1 x 2 mg tablet Condition: Tuesday Dose/Route: 4 mg Instruction: 1 x 4 mg tablet Condition: Tuesday Dose/Route: 4 mg Instruction: 1 x 4 mg tablet Condition: Tuesday Dose/Route: 2 mg Instruction: 1 x 2 mg tablet Condition: Dose/Route: 2 mg Instruction: 1 x 2 mg tablet Condition: Tuesday Dose/Route: 4 mg Instruction: 1 x 4 mg tablet Condition: Tuesday Dose/Route: 4 mg Instruction: 1 x 4 mg tablet Protocol Text: Adjustment Start Date: Tuesday04/16/22 INR Value: 2.7 INR Date: 04/16/22 Recheck Date: 04/30/22 tamsulosin 0.4 mg capsule 0.4 mg PO QHS lidocaine 5 % adhesive patch,medicated 1 patch topical DAILY PRN (Reason: pain) Rx Instructions: leave on most painful area for up to 12 hrs levothyroxine 25 mcg tablet 25 mcg PO DAILY Label Comments: take 1 tablet by mouth once daily Prolia 60 MG/ML syringe 60 mg SQ .[id number] ipratropium bromide 21 mcg (0.03 %) Hertel,Non-Aerosol 2 spray INTRANASAL PRN PRN (Reason: SOB) Osteo Bi-Flex Triple Strength 750 mg-644 mg- 30 mg-1 mg Tablet 2 tab PO DAILY warfarin 2 mg tablet 2 mg PO FR Protocol: Dose Management Condition: Tuesday Dose/Route: 2 mg Instruction: 1 x 2 mg tablet Condition: Tuesday Dose/Route: 4 mg Instruction: 1 x 4 mg tablet Condition: Tuesday Dose/Route: 4 mg Instruction: 1 x 4 mg tablet Condition: Tuesday Dose/Route: 2 mg Instruction: 1 x 2 mg tablet Condition: Dose/Route: 2 mg Instruction: 1 x 2 mg tablet Condition: Tuesday Dose/Route: 4 mg Instruction: 1 x 4 mg tablet Condition: Tuesday Dose/Route: 4 mg Instruction: 1 x 4 mg tablet Protocol Text: Adjustment Start Date: Tuesday04/16/22 INR Value: 2.7 INR Date: 04/16/22 Recheck Date: 04/30/22 diltiazem HCl 120 mg capsule,extended release 24hr 120 mg PO DAILY isosorbide mononitrate 30 mg Tablet Extended Release 24 Hr 30 mg PO DAILY hydralazine 25 mg Tablet 12.5 mg PO TID amoxicillin 875 mg Tablet 875 mg PO BID pantoprazole 40 mg Tablet,Delayed Release (Dr/Ec) 40 mg PO DAILY bisacodyl [Dulcolax (bisacodyl)] 5 mg Tablet,Delayed Release (Dr/Ec) 5 mg PO QHS bisacodyl [Dulcolax (bisacodyl)] 5 mg Tablet,Delayed Release (Dr/Ec) 5 mg PO PRN PRN (Reason: Constipation) Niferex 50 mg iron Tablet 50 mg PO DAILY vitamin B complex [B Complex] Capsule 1 cap PO BID beta carotene 25,000 unit Tablet 25,000 unit PO DAILY Rx Instructions: administer with a meal coenzyme Q10 [Co Q-10] 100 mg Capsule 100 mg PO DAILY amiodarone 100 mg Tablet 100 mg PO BID baclofen 5 mg Tablet 5 mg PO TID PRN (Reason: muscle spasms) metoprolol tartrate 25 mg tablet 12.5 mg PO BID nitroglycerin 0.4 mg tablet, sublingual See Rx Instructions .ROUTE .COMPLEX Qty: 25 3RF Dose Instruction: PLACE 1 TABLET UNDER TONGUE EVERY 5 TO 15 MINUTES NEEDED FOR CHEST PAIN UNTIL RESPONSE. DO NOT EXCEED 3 DOSES PER EPISODE Rx Instructions: PLACE 1 TABLET UNDER TONGUE EVERY 5 TO 15 MINUTES NEEDED FOR CHEST PAIN UNTIL RESPONSE. DO NOT EXCEED 3 DOSES PER EPISODE Primary Care Provider: César Chinchilla Referrals: Tremaine Molina MD [Med Staff - Active Staff] - 3-5 Days César Chinchilla MD [Primary Care Provider] - Disposition Disposition: Home, Self Care
--- NOTE | 2022-05-01 11:47 | EKG12_ITS ---
Test Reason : Blood Pressure : / mmHG Vent. Rate : 089 BPM Atrial Rate : 312 BPM P-R Int : 000 ms QRS Dur : 090 ms QT Int : 388 ms P-R-T Axes : 000 -02 -39 degrees QTc Int : 472 ms Atrial flutter with variable A-V block Marked ST abnormality, possible inferior subendocardial injury Abnormal ECG Confirmed by JOSE KASPER, JESSICA ([id number]), offline editor CIPRIANO GATES ([id number]) on 05/04/2022 9:07:35 AM Referred By: Carol Dave Confirmed By:CAM DAVE MD
[2022-05-01 13:19] LABS: Troponin-I HS 18 pg/mL (3.0-78.0)
== END 2022-05-01 14:54 | disposition home or self-care (01) ==
PROVIDERS: Emergency Provider Emergency Medicine; PCP Family Medicine; Referring Provider Specialist; Visit Provider Emergency Medicine
DX: I48.92 Unspecified atrial flutter (principal); I50.32 Chronic diastolic (congestive) heart failure; I13.0 Hypertensive heart and chronic kidney disease with heart failure and stage 1 through stage 4 chronic kidney disease, or unspecified chronic kidney disease; I27.21 Secondary pulmonary arterial hypertension; I48.0 Paroxysmal atrial fibrillation; N18.32 Chronic kidney disease, stage 3b; Z87.19 Personal history of other diseases of the digestive system; I25.10 Atherosclerotic heart disease of native coronary artery without angina pectoris; N40.0 Benign prostatic hyperplasia without lower urinary tract symptoms; K21.9 Gastro-esophageal reflux disease without esophagitis; I25.2 Old myocardial infarction; Z87.442 Personal history of urinary calculi; I34.0 Nonrheumatic mitral (valve) insufficiency; E78.5 Hyperlipidemia, unspecified; Z79.899 Other long term (current) drug therapy; Z79.01 Long term (current) use of anticoagulants; Z95.5 Presence of coronary angioplasty implant and graft
CPT/HCPCS: 99285; 71045; 80048; 84484; 85025; 85610; 85730; 93005; A4216

== ENCOUNTER 2022-05-04 15:41 | Inpatient (IN) | payer MEDICARE, OTHER, SELFPAY ==
[2022-05-04] VITALS (11 sets, daily range): BP systolic 80–119; BP diastolic 53–80; PULSE 76–107; RESP 14–31; TEMP 36.6–36.8; O2SAT 2–98; BMI 22.2; BMI 21.4
--- NOTE | 2022-05-04 16:18 | EX.ED.DYSGE1 ---
HPI History of Present Illness Chief Complaint: Hypotension Informant: patient Narrative Narrative: It takes quite a bit of questioning to find out why this patient arrives. I finally unable to get from him that he called EMS because he feels overall weak and tired. At first he denied nausea but then admitted it. He has denied vomiting. There is a chart note about constipation but he states he is having more soft bowel movements. He denies blood or black in the stool. He is on Coumadin for history of intermittent A. fib. He states he has a little pressure down over his bladder. No other pain in his abdomen. He has had 4 back surgeries and always has some back pain but its not new or different. He states for a long time he has been getting occasional pains in his chest but is not having them now. He was just here on Tuesday for visit. He states that I have to look at the chart to get all the details of why he was here. He does live alone at home and feels too weak to be home. At first he told me he has been eating and drinking but then admitted that he has not been eating or drinking. [facility] Medical History Acute blood loss anemia Acute diverticulitis of intestine Acute gastrointestinal bleeding Acute kidney injury superimposed on chronic kidney disease Atherosclerotic heart disease of platinum coronary artery without angina pectoris Atrial fibrillation Atypical atrial flutter (12/2020) Benign prostatic hyperplasia BPH (benign prostatic hyperplasia) Cancer Chronic heart failure with preserved ejection fraction (HFpEF) Chronic kidney disease Chronic renal insufficiency CPAP (continuous positive airway pressure) dependence Debility Dysphagia Elevated liver enzymes Essential (primary) hypertension GERD (gastroesophageal reflux disease) GI bleed (2012) History of colon polyps History of hyperthyroidism HLD (hyperlipidemia) Hypertension Kidney disease Kidney stones Myocardial infarct Non-rheumatic tricuspid valve insufficiency Non-smoker Nonrheumatic mitral (valve) insufficiency 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 Osteoarthritis Paroxysmal atrial fibrillation Secondary pulmonary arterial hypertension Sleep apnea Stage 3b chronic kidney disease Thoracic aortic aneurysm (TAA) Home Medications finasteride 5 mg tablet (Proscar) 5 mg PO DAILY prostate 06/03/20 [History Last Taken 02/24/22] denosumab 60 mg/mL subcutaneous syringe (Prolia) 60 mg SQ .[id number] BONES 12/09/20 [History Last Taken 3 Months Ago ~11/24/21] glucosamine 750 [id number] 644 mg-C 30 mg-pamela 1 mg tablet (Osteo Bi-Flex Triple Strength) 2 tab PO DAILY bone health 05/06/21 [History Last Taken 02/23/22] ipratropium bromide 21 mcg (0.03 %) nasal spray 2 spray intranasal PRN PRN SOB 05/06/21 [History Last Taken 02/23/22] tamsulosin 0.4 mg capsule 0.4 mg PO QHS bladder 11/18/21 [History Last Taken 02/24/22] warfarin 2 mg tablet 2 mg PO FR blood thinner 11/18/21 [History Last Taken 02/20/22] warfarin 4 mg tablet 4 mg PO SUMOTUWETHSA BLOOD THINNER 11/18/21 [History Last Taken 02/23/22] diltiazem HCl 120 mg capsule,extended release 24 hr 120 mg PO DAILY heart 01/07/22 [History Last Taken 02/24/22] nitroglycerin 0.4 mg sublingual tablet See Rx Instructions .Route .COMPLEX #25 TABLETS 02/02/22 [Rx Last Taken 02/24/22] levothyroxine 25 mcg tablet 25 mcg PO DAILY 02/17/22 [History Last Taken 02/24/22] lidocaine 5 % topical patch 1 patch topical DAILY PRN pain 02/17/22 [History Last Taken 2 Days Ago ~02/22/22] amiodarone 100 mg tablet 100 mg PO BID 05/01/22 [History Last Taken Unknown] amoxicillin 875 mg tablet 875 mg PO BID 05/01/22 [History Last Taken Unknown] baclofen 5 mg tablet 5 mg PO TID PRN muscle spasms 05/01/22 [History Last Taken Unknown] beta carotene 25,000 unit tablet 25,000 unit PO DAILY 05/01/22 [History Last Taken Unknown] bisacodyl 5 mg tablet,delayed release (Dulcolax (bisacodyl)) 5 mg PO PRN PRN Constipation 05/01/22 [History Last Taken Unknown] bisacodyl 5 mg tablet,delayed release (Dulcolax (bisacodyl)) 5 mg PO QHS 05/01/22 [History Last Taken Unknown] coenzyme Q10 100 mg capsule (Co Q-10) 100 mg PO DAILY 05/01/22 [History Last Taken Unknown] hydralazine 25 mg tablet 12.5 mg PO TID 05/01/22 [History Last Taken Unknown] isosorbide mononitrate 30 mg tablet,extended release 24 hr 30 mg PO DAILY 05/01/22 [History Last Taken Unknown] metoprolol tartrate 25 mg tablet 12.5 mg PO BID 05/01/22 [History Last Taken Unknown] pantoprazole 40 mg tablet,delayed release 40 mg PO DAILY 05/01/22 [History Last Taken Unknown] polysaccharide iron complex 50 mg iron tablet 50 mg PO DAILY 05/01/22 [History Last Taken Unknown] vitamin B complex 1 cap PO BID 05/01/22 [History Last Taken Unknown] Allergy/AdvReac Type Severity Reaction Status Date / Time diclofenac Allergy rash Verified 05/04/22 15:48 prednisone Allergy Rash Verified 05/04/22 15:48 Family History Father Cancer Prostate cancer Mother Hypertension Sister Hypertension Surgical History History of back surgery History of cardioversion (06/18/19) History of coronary artery stent placement (08/04/00) History of electrophysiologic study (08/08/00) History of hemorrhoidectomy History of hernia repair History of left heart catheterization (07/17/12) History of Zenaida fundoplication History of radiofrequency ablation procedure for cardiac arrhythmia (11/11/11) Social History household members: none Smoking Status: Never smoker alcohol intake: never substance use type: does not use caffeine: No ROS ROS ED Constitutional Constitutional ED: Denies fever(s) or sweats Eyes Eyes: Denies change in vision ENT ENT ED: Denies rhinorrhea Cardiovascular Cardiovascular: Reports chest pain; Denies palpitations or racing heartbeat Respiratory/Chest Respiratory/Chest: Denies cough or dyspnea Gastrointestinal Gastrointestinal: Reports abdominal pain, diarrhea, nausea and vomiting; Denies constipation or melena Genitourinary Genitourinary ED: Denies hematuria Musculoskeletal Musculoskeletal: Denies myalgias Integumentary Denies rash Neurologic Neurologic: Denies headache(s) Psychiatric Psychiatric: Reports anxiety Endocrine Endocrinology: Denies polydipsia or polyuria Hematologic/Lymphatic Hematologic/Lymphatic: Reports easy bleeding and easy bruising Allergic/Immunologic Allergic/Immunologic ED: Denies urticaria EXAM Physical Exam Const Vital Signs: 05/04/22 15:46 05/04/22 16:09 05/04/22 16:14 Temperature 97.9 F Temperature Source Temporal Pulse Rate 93 Respiratory Rate 16 Respiratory Effort Normal Respiratory Pattern Normal Blood Pressure 80/53 L 97/61 Blood Pressure Mean 62 73 Pulse Ox 98 Oxygen Delivery Method Room Air Oxygen Flow Rate (L/min) 05/04/22 17:02 05/04/22 18:11 05/04/22 18:24 Temperature Temperature Source Pulse Rate 76 91 89 Respiratory Rate 22 H 31 H 20 H Respiratory Effort Respiratory Pattern Blood Pressure 99/62 90/61 99/63 Blood Pressure Mean 74 70 75 Pulse Ox 93 91 94 Oxygen Delivery Method Room Air Room Air Room Air Oxygen Flow Rate (L/min) 05/04/22 19:54 05/04/22 19:55 05/04/22 20:12 Temperature Temperature Source Pulse Rate 107 H Respiratory Rate 14 Respiratory Effort Respiratory Pattern Blood Pressure 114/76 Blood Pressure Mean 88 Pulse Ox 2 87 95 Oxygen Delivery Method Room Air Nasal Cannula Oxygen Flow Rate (L/min) 2 05/04/22 21:00 Temperature Temperature Source Pulse Rate 96 Respiratory Rate 21 H Respiratory Effort Respiratory Pattern Blood Pressure 116/73 Blood Pressure Mean 87 Pulse Ox 97 Oxygen Delivery Method Nasal Cannula Oxygen Flow Rate (L/min) 2 Positive well nourished Constitutional Narrative: Patient looks tired, mildly frail, dry mouth. He is awake alert and appropriate as I walk in the room. General Appearance ED: NAD HEENT Reports dry mucous membranes Mouth ED: Yes dry mucous membranes Mouth: dry mucous membranes Eyes General Eye ED: Negative for scleral icterus Neck supple Chest Wall inspection of chest normal and palpation of chest normal Resp normal respiratory effort and clear to auscultation bilaterally Auscultation: Negative for rales, rhonchi or wheezes Cardio regular rate and regular rhythm Rhythm: abnormal rhythm other (Patient appears to be in a sinus rhythm on the monitor. His rate is about 90. He states his rate has gone up as high as 107 recently.) GI normal to inspection, nondistended, normoactive bowel sounds GI Narrative: Patient does have some mild tenderness and possible fullness over the bladder. I feel no mass. I hear no bruit. No tenderness anywhere except in the suprapubic area. And this is very mild. Back/Spine no CVA tenderness Extremity normal to inspection Extremity Narrative: No edema. No sign of poor blood flow. Neuro Neuro Narrative: Patient is awake and alert. He is just not a good informant for details. Psych Psych Narrative: Mildly flat affect. Skin no rashes or lesions noted General Skin Exam: Negative for jaundice MDM MDM MDM Narrative Medical decision making narrative: Patient does have a very soft loose bowel movement here. But it was all light ludwig. No blood was seen. Its not melena. He states this has been happening a lot. Patient has had some soft bowels. No blood seen. They are light ludwig. C. difficile will be sent off. White count is normal on this patient. Hemoglobin shows minimally low. Potassium was a bit low and replaced. He does have a rise in his creatinine up to 3.04. This is a rise from his recent. TSH is slightly high. Lactate is normal. INR is a little on the high side. Urine shows red cells but no sign of infection. CAT scan shows some colitis and mild ileus. I discussed case with hospitalist. We are holding antibiotics at this time. Lab Data Attestation: I reviewed the patient's lab results. Labs: Laboratory Results - last 24 hr 05/04/22 05/04/22 05/04/22 15:56 15:56 15:56 WBC 10.8 RBC 4.07 L Hgb 12.4 L Hct 38.4 L MCV 94.3 H MCH 30.5 MCHC 32.3 RDW Std Deviation 63.9 H RDW Coeff of Pablo 18.4 H Plt Count 487 H MPV 10.5 Immature Gran % (Auto) 0.600 Neut % (Auto) 77.3 H Lymph % (Auto) 13.3 L [place] % (Auto) 6.7 Eos % (Auto) 1.6 Baso % (Auto) 0.5 Absolute Neuts (auto) 8.4 H Absolute Lymphs (auto) 1.44 Nucleated RBC % 0 PT Cancelled INR Cancelled Sodium 139 Potassium 3.1 L Chloride 104 Carbon Dioxide 23.0 Anion Gap 12 BUN 44 H Creatinine 3.04 H Estim Creat Clear Calc 18.17 Est GFR (MDRD) Af Amer 26 L Est GFR (MDRD) Non-Af 21 L BUN/Creatinine Ratio 14.5 Glucose 177 H Lactic Acid Calcium 9.3 Magnesium 2.4 Total Bilirubin 0.70 AST 180 H ALT 245 H Alkaline Phosphatase 89 Troponin I High Sens 33 Total Protein 7.8 Albumin 3.1 L Globulin 4.7 H Albumin/Globulin Ratio 0.7 L Lipase 278 TSH 4.62 H Urine Color Urine Clarity Urine pH Ur Specific [place] Urine Protein Urine Glucose (UA) Urine Ketones Urine Occult Blood Urine Nitrite Urine Bilirubin Urine Urobilinogen Ur Leukocyte Esterase Urine RBC Urine WBC Ur Squamous Epith Cells Urine Bacteria Urine Mucus 05/04/22 05/04/22 05/04/22 17:00 18:07 20:09 WBC RBC Hgb Hct MCV MCH MCHC RDW Std Deviation RDW Coeff of Pablo Plt Count MPV Immature Gran % (Auto) Neut % (Auto) Lymph % (Auto) [place] % (Auto) Eos % (Auto) Baso % (Auto) Absolute Neuts (auto) Absolute Lymphs (auto) Nucleated RBC % PT 33.9 H INR 3.4 Sodium Potassium Chloride Carbon Dioxide Anion Gap BUN Creatinine Estim Creat Clear Calc Est GFR (MDRD) Af Amer Est GFR (MDRD) Non-Af BUN/Creatinine Ratio Glucose Lactic Acid 1.5 Calcium Magnesium Total Bilirubin AST ALT Alkaline Phosphatase Troponin I High Sens Total Protein Albumin Globulin Albumin/Globulin Ratio Lipase TSH Urine Color Yellow Urine Clarity Clear Urine pH 6.0 Ur Specific [place] 1.010 Urine Protein 15 H Urine Glucose (UA) Normal Urine Ketones Negative Urine Occult Blood 250 H Urine Nitrite Negative Urine Bilirubin Negative Urine Urobilinogen Normal Ur Leukocyte Esterase 25 H Urine RBC 50-100 SEEN Urine WBC 0-5 SEEN Ur Squamous Epith Cells 0 SEEN Urine Bacteria 1+ Urine Mucus 0 SEEN Radiography Diagnostic Testing: Clinical Impression(s) from Imaging Studies Acute Abdomen Series 05/04/22 18:35 IMPRESSION: 1. Mild to moderate cardiomegaly without heart failure. 2. Minimal right lower lobe atelectatic process. 3. No evidence of intestinal obstruction. A mild ileus is present. 4. No abnormal intra-abdominal calcifications or collections of air. No free air. 5. Mild demineralization, no pelvic bone fractures. No hip dislocations. Residue of a previous L3-L5 laminectomy. Residue of a vertebroplasty of the T7, T10, T12, L1 vertebrae. Electronically Signed: Jhon Reynolds MD at 20:13 EDT , Abdomen/Pelvis CT 05/04/22 18:57 IMPRESSION: Diffuse ileus pattern is noted. No evidence for small bowel obstruction.. There are scattered diverticular sac noted throughout the colon. However there is concentric thickening of the leal of the distal descending and sigmoid colon stranding in the fat more consistent with acute colitis. Other findings as above Electronically Signed: Phoenix Alba MD at 21:42 EDT , Discharge Plan Triage Chief Complaint: Hypotension ED Provider: Nikita Akbar Dx/Rx/DC Orders Clinical Impression: Acute hypotension, Dehydration, Colitis, Generalized weakness, Diarrhea Prescriptions: No Action finasteride [Proscar] 5 mg tablet 5 mg PO DAILY warfarin 4 mg tablet 4 mg PO SUMOTUWETHSA Protocol: Dose Management Condition: Tuesday Dose/Route: 2 mg Instruction: 1 x 2 mg tablet Condition: Tuesday Dose/Route: 4 mg Instruction: 1 x 4 mg tablet Condition: Tuesday Dose/Route: 4 mg Instruction: 1 x 4 mg tablet Condition: Tuesday Dose/Route: 2 mg Instruction: 1 x 2 mg tablet Condition: Dose/Route: 2 mg Instruction: 1 x 2 mg tablet Condition: Tuesday Dose/Route: 4 mg Instruction: 1 x 4 mg tablet Condition: Tuesday Dose/Route: 4 mg Instruction: 1 x 4 mg tablet Protocol Text: Adjustment Start Date: Tuesday04/16/22 INR Value: 2.7 INR Date: 04/16/22 Recheck Date: 04/30/22 tamsulosin 0.4 mg capsule 0.4 mg PO QHS lidocaine 5 % adhesive patch,medicated 1 patch topical DAILY PRN (Reason: pain) Rx Instructions: leave on most painful area for up to 12 hrs levothyroxine 25 mcg tablet 25 mcg PO DAILY Label Comments: take 1 tablet by mouth once daily Prolia 60 MG/ML syringe 60 mg SQ .[id number] ipratropium bromide 21 mcg (0.03 %) Parks,Non-Aerosol 2 spray INTRANASAL PRN PRN (Reason: SOB) Osteo Bi-Flex Triple Strength 750 mg-644 mg- 30 mg-1 mg Tablet 2 tab PO DAILY warfarin 2 mg tablet 2 mg PO FR Protocol: Dose Management Condition: Tuesday Dose/Route: 2 mg Instruction: 1 x 2 mg tablet Condition: Tuesday Dose/Route: 4 mg Instruction: 1 x 4 mg tablet Condition: Tuesday Dose/Route: 4 mg Instruction: 1 x 4 mg tablet Condition: Tuesday Dose/Route: 2 mg Instruction: 1 x 2 mg tablet Condition: Dose/Route: 2 mg Instruction: 1 x 2 mg tablet Condition: Tuesday Dose/Route: 4 mg Instruction: 1 x 4 mg tablet Condition: Tuesday Dose/Route: 4 mg Instruction: 1 x 4 mg tablet Protocol Text: Adjustment Start Date: Tuesday04/16/22 INR Value: 2.7 INR Date: 04/16/22 Recheck Date: 04/30/22 diltiazem HCl 120 mg capsule,extended release 24hr 120 mg PO DAILY isosorbide mononitrate 30 mg Tablet Extended Release 24 Hr 30 mg PO DAILY hydralazine 25 mg Tablet 12.5 mg PO TID amoxicillin 875 mg Tablet 875 mg PO BID pantoprazole 40 mg Tablet,Delayed Release (Dr/Ec) 40 mg PO DAILY bisacodyl [Dulcolax (bisacodyl)] 5 mg Tablet,Delayed Release (Dr/Ec) 5 mg PO QHS bisacodyl [Dulcolax (bisacodyl)] 5 mg Tablet,Delayed Release (Dr/Ec) 5 mg PO PRN PRN (Reason: Constipation) Niferex 50 mg iron Tablet 50 mg PO DAILY vitamin B complex [B Complex] Capsule 1 cap PO BID beta carotene 25,000 unit Tablet 25,000 unit PO DAILY Rx Instructions: administer with a meal coenzyme Q10 [Co Q-10] 100 mg Capsule 100 mg PO DAILY amiodarone 100 mg Tablet 100 mg PO BID baclofen 5 mg Tablet 5 mg PO TID PRN (Reason: muscle spasms) metoprolol tartrate 25 mg tablet 12.5 mg PO BID nitroglycerin 0.4 mg tablet, sublingual See Rx Instructions .ROUTE .COMPLEX Qty: 25 3RF Dose Instruction: PLACE 1 TABLET UNDER TONGUE EVERY 5 TO 15 MINUTES NEEDED FOR CHEST PAIN UNTIL RESPONSE. DO NOT EXCEED 3 DOSES PER EPISODE Rx Instructions: PLACE 1 TABLET UNDER TONGUE EVERY 5 TO 15 MINUTES NEEDED FOR CHEST PAIN UNTIL RESPONSE. DO NOT EXCEED 3 DOSES PER EPISODE Primary Care Provider: César Chinchilla Referrals: César Chinchilla MD [Primary Care Provider] - Disposition Disposition: Acute Care Hospital [facility] [place] [facility]
--- NOTE | 2022-05-04 16:21 | EKG12_ITS ---
Test Reason : Blood Pressure : / mmHG Vent. Rate : 081 BPM Atrial Rate : 088 BPM P-R Int : 000 ms QRS Dur : 096 ms QT Int : 408 ms P-R-T Axes : 000 001 -11 degrees QTc Int : 473 ms Atrial tachycardia Nonspecific T wave abnormality Abnormal ECG Confirmed by MARCE KASPER, ADAM ([id number]), web content editor CIPRIANO GATES ([id number]) on 05/06/2022 9:43:21 AM Referred By: Confirmed By:ADAM ZHENG MD
[2022-05-04] MEDS: 0.9% Normal Saline 1,000 ML 1000 ML IV (16:27)
[2022-05-04 16:51] LABS: Absolute Lymphocyte Count 1.44 X10^3/uL (0.83-4.51); Absolute Neutrophil Count 8.4 X10^3/uL (2.0-7.7); Basophil# 0.05 X10^3/uL; Basophil% 0.5 % (0-1); Eosinophil# 0.17 X10^3/uL; Eosinophils% 1.6 % (0-5); Hematocrit 38.4 % (40-54); Hemoglobin 12.4 g/dL (13.0-16.5); Lymphocyte # 1.44 X10^3/ul (0.83-4.51); Lymphocyte % 13.3 % (19-41); Mean Corp Hgb Conc 32.3 g/dL (32-36); Mean Corpuscular Hgb 30.5 pg (27.0-32.0); Mean Corpuscular Volume 94.3 fL (80-94); Mean Platelet Vol. 10.5 fl (6.2-12.0); Monocyte# 0.72 X10^3/uL; Monocyte% 6.7 % (0-10); NRBC Flagged by Analyzer 0 % (0-5); Neutrophil # 8.36 X10^3/uL (2.7-7.7); Neutrophil % 77.3 % (47-70); Platelet Count 487 K/mm3 (150-450); RBC Distribution Width CV 18.4 % (11.6-14.6); RBC Distribution Width SD 63.9 fl (35.1-43.9); Red Blood Count 4.07 M/mm3 (4.6-6.2); White Blood Count 10.8 K/mm3 (4.4-11.0)
--- NOTE | 2022-05-04 16:58 | NURSING ---
BLUE TOP TOO SHORT, NEEDS REDRAWN. LAB TO REPRINT LABEL
[2022-05-04] MEDS: Ondansetron 4 MG/2 ML Vial IV (17:05)
[2022-05-04 17:20] LABS: ALB/GLOB Ratio 0.7 RATIO (0.9-2.4); AST(SGOT) 180 U/L (15-37); Alanine Aminotransfer ALT/SGPT 245 U/L (16-61); Albumin, Serum 3.1 g/dL (3.2-5.0); Alkaline Phosphatase 89 U/L (45-117); Anion Gap 12 (5-15); BUN 44 mg/dL (7-18); BUN/Creat Ratio 14.5 RATIO (10-20); Calcium,Total 9.3 mg/dL (8.5-10.1); Chloride 104 mmol/L (98-107); Creatinine, Serum 3.04 mg/dL (0.70-1.30); EST Glomerular Filtration Rate 21 mL/min (>60); Est Glom Filt Rate - Afr Amer 26 mL/min (>60); Estimated Creatinine Clearance 18.17 ml/min; Globulin 4.7 g/dL (2.2-4.2); Glucose 177 mg/dL (74-106); Lipase 278 U/L (73-393); Magnesium 2.4 mg/dL (1.6-2.6); Potassium 3.1 mmol/L (3.5-5.1); Protein, Total 7.8 g/dL (6.4-8.2); Sodium Level 139 mmol/L (136-145); Thyroid Stim Hormone (TSH) 4.62 uIU/mL (0.358-3.74); Troponin-I HS 33 pg/mL (3.0-78.0)
[2022-05-04 17:41] LABS: International Normalized Ratio 3.4; Prothrombin Time (Protime)PT. 33.9 SECONDS (11.7-14.9)
[2022-05-04] MEDS: 0.9% Normal Saline 1,000 ML 999 ML IV (18:23)
--- NOTE | 2022-05-04 18:35 | RAD_ITS ---
STUDY: ACUTE ABDOMEN X-RAY SERIES OF 1837 HOURS ON 05/04/2022 REASON FOR EXAM: 81-year-old male with abdominal pain. TECHNIQUE: 7 views were obtained in this examination. COMPARISON: None. FINDINGS: There is a minimal right lower lobe atelectatic process. There is mild to moderate cardiomegaly without heart failure. There is mild demineralization. There is no evidence of pelvic bone or hip fractures. There is no evidence of hip dislocations. There is a residue of a previous L3-L5 laminectomy. There is a residue of vertebroplasty is the T7, T10, T12, L1 vertebra. There is a large left lateral osteophyte from the L2 to L3 vertebra. There is no evidence of intestinal obstruction. A mild ileus is present. Normal variant prominently calcified costochondral cartilages are seen. There are no abnormal intra-abdominal calcifications or other collections of air. There is no evidence of free air. RAD/Acute Abdomen Inc Chest IMPRESSION: 1. Mild to moderate cardiomegaly without heart failure. 2. Minimal right lower lobe atelectatic process. 3. No evidence of intestinal obstruction. A mild ileus is present. 4. No abnormal intra-abdominal calcifications or collections of air. No free air. 5. Mild demineralization, no pelvic bone fractures. No hip dislocations. Residue of a previous L3-L5 laminectomy. Residue of a vertebroplasty of the T7, T10, T12, L1 vertebrae. Electronically Signed: Jhon Reynolds MD at 20:13 EDT ,
--- NOTE | 2022-05-04 18:57 | CT_ITS ---
STUDY: CT ABDOMEN AND PELVIS WITHOUT CONTRAST REASON FOR EXAM: Male, 81 years old. pain RADIATION DOSAGE (If Supplied By Facility): CTDIvol = ( 6.44 ) mGy, DLP = ( 338.06 ) mGycm TECHNIQUE: Transaxial images were obtained from the dome of the diaphragm to the symphysis pubis without oral contrast, and without intravenous contrast. Sagittal and coronal images were reconstructed. Individualized dose optimization techniques were used for this CT. COMPARISON: 01/02/2022 FINDINGS: Chronic interstitial and emphysematous changes are seen at the lung bases.. Heart is enlarged and there is coronary artery calcification Liver is normal size but demonstrates diffusely increased attenuation which may be consistent with nonspecific hepatocellular disease including AMIODARONE utilization glycogen storage disease, Seun''s disease or hemachromatosis. Normal gallbladder and extrahepatic biliary system. Tiny granulomatous calcifications within normal size spleen.. Normal pancreas. Normal bilateral adrenal glands. No evidence for renal obstruction. There are multiple bilateral renal cysts Normal visualized stomach. Diffuse ileus pattern is noted.. . Diffuse diverticular changes of the colon. There is concentric thickening of the leal of the descending and sigmoid colon with stranding in the fat consistent with nonspecific colitis.. No evidence for acute appendicitis.. Atherosclerotic changes of the aorta without evidence for aneurysm.. Normal inferior vena cava. Normal retroperitoneum. Normal urinary bladder. Radiation seeds are noted within the prostate Normal abdominal wall. Lumbar spine demonstrates degenerative changes and postop changes at L4-5 and L5-S1. There are also multiple chronic compression fractures status post kyphoplasty CT/Abdomen/Pelvis without Cont IMPRESSION: Diffuse ileus pattern is noted. No evidence for small bowel obstruction.. There are scattered diverticular sac noted throughout the colon. However there is concentric thickening of the leal of the distal descending and sigmoid colon stranding in the fat more consistent with acute colitis. Other findings as above Electronically Signed: Phoenix Alba MD at 21:42 EDT ,
[2022-05-04] MEDS: Morphine 2 MG/ML Syringe IV (19:03)
[2022-05-04 19:04] LABS: Lactic Acid 1.5 mmol/L (0.4-1.9)
[2022-05-04] MEDS: Potassium Chloride 10mEq/100mL 10 MEQ/100 ML IV.SOLN. 100 MEQ IV BOLUS ×2 (19:44→20:59)
[2022-05-04 20:44] LABS: Mucous, Urine 0 SEEN /hpf (<or=2+); Squamous Epithelial Cells - UA 0 SEEN /hpf (0-5)
[2022-05-04 20:56] LABS: Color, Urine Yellow (Yellow); Glucose, Dipstick Normal (Normal); Ketone-Dipstick Negative (Negative); Leukocyte Esterase-Dipstick 25 /ul (Negative); Nitrite-Dipstick Negative (Negative); Occult Blood-Urine 250 /ul (Negative); Protein-Dipstick 15 mg/dl (Negative); Urine Bilirubin Dipstick Negative (Negative); Urine Clarity Clear (Clear); Urine Urobilinogen Normal (Normal)
[2022-05-04 21:03] LABS: Bacteria 1+ /hpf (None Seen); Red Blood Cells-Urine 50-100 SEEN /hpf (0-5); White Blood Cells 0-5 SEEN /hpf (0-5)
--- NOTE | 2022-05-04 21:42 | HP.PCM.HOS_ITS ---
HPI - General General Date of Admission: 05/04/22 Date of Service: 05/04/22 Chief Complaint: debility and weakness HPI Narrative RICHIE HANSEN, is a 81 M with a PMH as outlined who presents via the ED on 05/04/2022 with a complaint of weakness. HE was initially brought in with a complaint of constipation, but it transpired that he actually had diarrhea. He was seen in the hospital a few days ago for chest pressure and was discharged home. However, he has been feeling weak since then, and not eating or drinking well, and unable to take care of himself at home. HE called the EMS today because he felt very weak. He denied any fever, chills, nausea, vomiting and admitted to diarrhea. He denied any urinary symptoms and review of systems was otherwise negative. VItals were BP of 116/73, [place] of 96, RR of 21 and he was saturating at 97% on 2L of oxygen. CBC showed hb of 12.4, wbc of 10.8 and platelets of 487. Chemistry showed sodium of 139 and potassium of 3.1 as well as Cr of 3.04. AST/ALT were elevated at 180/245. TSH was 4.2. Urinalysis showed 0-5wbc and bacteria 1+. CT abdomen and pelvis showed diffuse ileus and no evidence of small bowel obstruction as well as evidence of acute colitis of the distal descending and sigmoid colon. He is being admitted to be managed for debility as well as acute colitis and diarrhea. [facility] Medical History Acute blood loss anemia Acute diverticulitis of intestine Acute gastrointestinal bleeding Acute kidney injury superimposed on chronic kidney disease Atherosclerotic heart disease of hoh coronary artery without angina pectoris Atrial fibrillation Atypical atrial flutter (12/2020) Benign prostatic hyperplasia BPH (benign prostatic hyperplasia) Cancer Chronic heart failure with preserved ejection fraction (HFpEF) Chronic kidney disease Chronic renal insufficiency CPAP (continuous positive airway pressure) dependence Debility Dysphagia Elevated liver enzymes Essential (primary) hypertension GERD (gastroesophageal reflux disease) GI bleed (2012) History of colon polyps History of hyperthyroidism HLD (hyperlipidemia) Hypertension Kidney disease Kidney stones Myocardial infarct Non-rheumatic tricuspid valve insufficiency Non-smoker Nonrheumatic mitral (valve) insufficiency 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 Osteoarthritis Paroxysmal atrial fibrillation Secondary pulmonary arterial hypertension Sleep apnea Stage 3b chronic kidney disease Thoracic aortic aneurysm (TAA) Home Medications finasteride 5 mg tablet (Proscar) 5 mg PO DAILY prostate 06/03/20 [History Last Taken 02/24/22] denosumab 60 mg/mL subcutaneous syringe (Prolia) 60 mg SQ [id number] BONES 12/09/20 [History Last Taken 3 Months Ago ~11/24/21] glucosamine 750 [id number] 644 mg-C 30 mg-pamela 1 mg tablet (Osteo Bi-Flex Triple Strength) 2 tab PO DAILY bone health 05/06/21 [History Last Taken 02/23/22] ipratropium bromide 21 mcg (0.03 %) nasal spray 2 spray intranasal PRN PRN SOB 05/06/21 [History Last Taken 02/23/22] tamsulosin 0.4 mg capsule 0.4 mg PO QHS bladder 11/18/21 [History Last Taken 02/24/22] warfarin 2 mg tablet 2 mg PO FR blood thinner 11/18/21 [History Last Taken 02/20/22] warfarin 4 mg tablet 4 mg PO SUMOTUWETHSA BLOOD THINNER 11/18/21 [History Last Taken 02/23/22] diltiazem HCl 120 mg capsule,extended release 24 hr 120 mg PO DAILY heart 01/07/22 [History Last Taken 02/24/22] nitroglycerin 0.4 mg sublingual tablet See Rx Instructions .Route .COMPLEX #25 TABLETS 02/02/22 [Rx Last Taken 02/24/22] levothyroxine 25 mcg tablet 25 mcg PO DAILY 02/17/22 [History Last Taken 02/24/22] lidocaine 5 % topical patch 1 patch topical DAILY PRN pain 02/17/22 [History Last Taken 2 Days Ago ~02/22/22] amiodarone 100 mg tablet 100 mg PO BID 05/01/22 [History Last Taken Unknown] amoxicillin 875 mg tablet 875 mg PO BID 05/01/22 [History Last Taken Unknown] baclofen 5 mg tablet 5 mg PO TID PRN muscle spasms 05/01/22 [History Last Taken Unknown] beta carotene 25,000 unit tablet 25,000 unit PO DAILY 05/01/22 [History Last Taken Unknown] bisacodyl 5 mg tablet,delayed release (Dulcolax (bisacodyl)) 5 mg PO PRN PRN Constipation 05/01/22 [History Last Taken Unknown] bisacodyl 5 mg tablet,delayed release (Dulcolax (bisacodyl)) 5 mg PO QHS 05/01/22 [History Last Taken Unknown] coenzyme Q10 100 mg capsule (Co Q-10) 100 mg PO DAILY 05/01/22 [History Last Taken Unknown] hydralazine 25 mg tablet 12.5 mg PO TID 05/01/22 [History Last Taken Unknown] isosorbide mononitrate 30 mg tablet,extended release 24 hr 30 mg PO DAILY 05/01/22 [History Last Taken Unknown] metoprolol tartrate 25 mg tablet 12.5 mg PO BID 05/01/22 [History Last Taken Unknown] pantoprazole 40 mg tablet,delayed release 40 mg PO DAILY 05/01/22 [History Last Taken Unknown] polysaccharide iron complex 50 mg iron tablet 50 mg PO DAILY 05/01/22 [History Last Taken Unknown] vitamin B complex 1 cap PO BID 05/01/22 [History Last Taken Unknown] Allergy/AdvReac Type Severity Reaction Status Date / Time diclofenac Allergy rash Verified 05/04/22 15:48 prednisone Allergy Rash Verified 05/04/22 15:48 Family History Father Cancer Prostate cancer Mother Hypertension Sister Hypertension Surgical History History of back surgery History of cardioversion (06/18/19) History of coronary artery stent placement (08/04/00) History of electrophysiologic study (08/08/00) History of hemorrhoidectomy History of hernia repair History of left heart catheterization (07/17/12) History of Zenaida fundoplication History of radiofrequency ablation procedure for cardiac arrhythmia (11/11/11) Social History household members: none Smoking Status: Never smoker alcohol intake: never substance use type: does not use caffeine: No ROS Constitutional Constitutional: Reports anorexia, fatigue, malaise and weakness; Denies change in weight, chills or fever(s) Eyes Eyes: Denies change in vision ENT HEENT: Denies dysphagia, headache(s) or sore throat Cardiovascular Cardiovascular: Denies chest pain, dyspnea on exertion, edema, lightheadedness, orthopnea, palpitations, paroxysmal nocturnal dyspnea or rapid heart rate Respiratory/Chest Respiratory/Chest: Denies cough, productive cough, shortness of breath at rest or shortness of breath with exertion Gastrointestinal Gastrointestinal: Reports diarrhea; Denies abdominal pain, constipation, dyspepsia, hematemesis, hematochezia, loose stools, melena, nausea or vomiting Genitourinary Genitourinary: Denies dysuria or urinary frequency Musculoskeletal Musculoskeletal: Denies arthralgias or joint swelling Neurologic Neurologic: Denies confusion, dizziness or focal weakness Psychiatric Psychiatric: Denies anxiety or depression Hematologic/Lymphatic Hematologic/Lymphatic: Denies anemia Vital Signs Vital Signs Vital Signs: 05/04/22 15:46 05/04/22 16:09 05/04/22 16:14 Temperature 97.9 F Temperature Source Temporal Pulse Rate 93 Respiratory Rate 16 Respiratory Effort Normal Respiratory Pattern Normal Blood Pressure 80/53 L 97/61 Blood Pressure Mean 62 73 Pulse Ox 98 Oxygen Delivery Method Room Air Oxygen Flow Rate (L/min) 05/04/22 17:02 05/04/22 18:11 05/04/22 18:24 Temperature Temperature Source Pulse Rate 76 91 89 Respiratory Rate 22 H 31 H 20 H Respiratory Effort Respiratory Pattern Blood Pressure 99/62 90/61 99/63 Blood Pressure Mean 74 70 75 Pulse Ox 93 91 94 Oxygen Delivery Method Room Air Room Air Room Air Oxygen Flow Rate (L/min) 05/04/22 19:54 05/04/22 19:55 05/04/22 20:12 Temperature Temperature Source Pulse Rate 107 H Respiratory Rate 14 Respiratory Effort Respiratory Pattern Blood Pressure 114/76 Blood Pressure Mean 88 Pulse Ox 2 87 95 Oxygen Delivery Method Room Air Nasal Cannula Oxygen Flow Rate (L/min) 2 05/04/22 21:00 Temperature Temperature Source Pulse Rate 96 Respiratory Rate 21 H Respiratory Effort Respiratory Pattern Blood Pressure 116/73 Blood Pressure Mean 87 Pulse Ox 97 Oxygen Delivery Method Nasal Cannula Oxygen Flow Rate (L/min) 2 Weight Weight: 146 lb 2.664 oz Body Mass Index (BMI) 22.2 Physical Exam Const alert, oriented x3 and no apparent distress Constitutional Narrative: frail General Appearance: cooperative HEENT normocephalic, head/scalp atraumatic, hearing grossly normal bilaterally and moist oral mucous membranes Mouth: oral and palatal mucosa normal Eyes PERRL, EOMs intact bilaterally and conjunctivae normal Neck no lymphadenopathy and supple Resp normal respiratory effort, no retractions, no use of accessory muscles and clear to auscultation bilaterally Cardio regular rate, regular rhythm, S1 normal heart sound, S2 normal heart sound and no murmurs GI normal to inspection, nondistended, normoactive bowel sounds, soft to palpation, non-tender and non-distended Extremity normal to inspection, full ROM and no clubbing, cyanosis or edema Neuro oriented x3, CN's II-XII intact bilaterally, moves all extremities and no focal motor deficits Sensorium / Orientation: awake Psych Psych Narrative: flat affect Results Lab / Micro Data Result Diagrams: 05/04/22 15:56 05/04/22 15:56 Labs: Laboratory Results - last 24 hr 05/04/22 15:56: WBC 10.8, RBC 4.07 L, Hgb 12.4 L, Hct 38.4 L, MCV 94.3 H, MCH 30.5, MCHC 32.3, RDW Std Deviation 63.9 H, RDW Coeff of Pablo 18.4 H, Plt Count 487 H, MPV 10.5, Immature Gran % (Auto) 0.600, Neut % (Auto) 77.3 H, Lymph % (Auto) 13.3 L, [place] % (Auto) 6.7, Eos % (Auto) 1.6, Baso % (Auto) 0.5, Absolute Neuts (auto) 8.4 H, Absolute Lymphs (auto) 1.44, Nucleated RBC % 0 05/04/22 15:56: PT Cancelled, INR Cancelled 05/04/22 15:56: Sodium 139, Potassium 3.1 L, Chloride 104, Carbon Dioxide 23.0, Anion Gap 12, BUN 44 H, Creatinine 3.04 H, Estim Creat Clear Calc 18.17, Est GFR (MDRD) Af Amer 26 L, Est GFR (MDRD) Non-Af 21 L, BUN/Creatinine Ratio 14.5, Glucose 177 H, Calcium 9.3, Magnesium 2.4, Total Bilirubin 0.70, AST 180 H, ALT 245 H, Alkaline Phosphatase 89, Troponin I High Sens 33, Total Protein 7.8, Albumin 3.1 L, Globulin 4.7 H, Albumin/Globulin Ratio 0.7 L, Lipase 278, TSH 4.62 H 05/04/22 17:00: PT 33.9 H, INR 3.4 05/04/22 18:07: Lactic Acid 1.5 05/04/22 20:09: Urine Color Yellow, Urine Clarity Clear, Urine pH 6.0, Ur Specific [place] 1.010, Urine Protein 15 H, Urine Glucose (UA) Normal, Urine Ketones Negative, Urine Occult Blood 250 H, Urine Nitrite Negative, Urine Bilirubin Negative, Urine Urobilinogen Normal, Ur Leukocyte Esterase 25 H, Urine RBC 50-100 SEEN, Urine WBC 0-5 SEEN, Ur Squamous Epith Cells 0 SEEN, Urine Bacteria 1+, Urine Mucus 0 SEEN Micro: Microbiology 05/04/22 16:30 Nasal Secretion SARS-CoV-2 & FLU Antigen (Rapid) - Final Radiology Impression Acute Abdomen Series 05/04/22 18:35 IMPRESSION: 1. Mild to moderate cardiomegaly without heart failure. 2. Minimal right lower lobe atelectatic process. 3. No evidence of intestinal obstruction. A mild ileus is present. 4. No abnormal intra-abdominal calcifications or collections of air. No free air. 5. Mild demineralization, no pelvic bone fractures. No hip dislocations. Residue of a previous L3-L5 laminectomy. Residue of a vertebroplasty of the T7, T10, T12, L1 vertebrae. Electronically Signed: Jhon Reynolds MD at 20:13 EDT , Assessment & Plan Assessment/Plan (1) Debility: (2) Colitis: PLAN: Plan #Acute colitis * admit to med surg * has diarrhea. * CT abdomen showed evidence of colitis in the descending and sigmoid colon. * keep NPO for now * hydrate with IVF * doesnt have any elevated wbc, and diarrhea is improvign, so will hold off on antibiotics for now. * stool sent for C Diff testing * #Hypotension: resolved with IVF administration #Debility and failure to thrive * likely due to decreased intake; says he has not been eating or drinking well * hydrate gently with IVF * consult PT/OT * fall precaution * consult nutrition due to poor intake * #FE on CKD 3B * CR is 3.04, with baseline of 2.26 * being hydrated with IVF. Will trend #Hypokalemia: will replace and trend #History of afib * has had pulmonary vein ablation * on amiodarone and metoprolol. also on coumadin. INR is therapeutic * #Hypothyroidism: on synthroid #BPH: on flomax #CAD s/p stent: on imdur #HFpEF; * on lasix 40mg tid. * has known EF of 60% from echo in December 2020, and severely enlarged left atrum, moderately severe mitral and tricuspid valve insufficiency DVT prophylaxis: not indicated as patient is on coumadin and INR is therapeutic Code status: full code * Patient counseled extensively about different types of CODE STATUS including full code, DNR CCA and DNR CCA. Patient elects to be full code. * Total [id number] time 17 minutes. Charges/Coding Visit Charges Inpatient E&M: 80629 Init Hosp L3 Procedures Hospitalists Procedures: 47120 Advncd Care Plan 30 Min
[2022-05-04] MEDS: 0.9% Saline Lock 10 ML Syringe IV (23:59)
[2022-05-04] MEDS: 0.9% Normal Saline 1,000 ML 125 ML IV (23:59)
[2022-05-05] VITALS (13 sets, daily range): BP systolic 102–121; BP diastolic 62–77; PULSE 70–92; RESP 16–18; TEMP 36.4–36.8; O2SAT 93–96
[2022-05-05] MEDS: Potassium Chloride Oral Tablet 20 MEQ 40 MEQ PO
[2022-05-05] MEDS: Levothyroxine 25 MCG TABLET PO (05:41)
[2022-05-05] MEDS: hydrALAZINE 25 MG Tablet 12.5 MG PO ×3 (05:41→21:14)
[2022-05-05 06:29] LABS: Absolute Lymphocyte Count 0.93 X10^3/uL (0.83-4.51); Absolute Neutrophil Count 16.2 X10^3/uL (2.0-7.7); Basophil# 0.06 X10^3/uL; Basophil% 0.3 % (0-1); Eosinophil# 0.13 X10^3/uL; Eosinophils% 0.7 % (0-5); Hematocrit 30.2 % (40-54); Hemoglobin 9.8 g/dL (13.0-16.5); Lymphocyte # 0.93 X10^3/ul (0.83-4.51); Lymphocyte % 4.9 % (19-41); Mean Corp Hgb Conc 32.5 g/dL (32-36); Mean Corpuscular Hgb 30.4 pg (27.0-32.0); Mean Corpuscular Volume 93.8 fL (80-94); Monocyte# 1.48 X10^3/uL; Monocyte% 7.8 % (0-10); NRBC Flagged by Analyzer 0 % (0-5); Neutrophil # 16.21 X10^3/uL (2.7-7.7); Neutrophil % 85.5 % (47-70); Platelet Count 310 K/mm3 (150-450); RBC Distribution Width CV 18.3 % (11.6-14.6); Red Blood Count 3.22 M/mm3 (4.6-6.2)
--- NOTE | 2022-05-05 06:59 | PCM.HOSP.N ---
Hospitalist Note WBC this morning elevated at 19. Patient therefore started on IV zosyn for colitis
[2022-05-05 07:11] LABS: Anion Gap 8 (5-15); BUN 43 mg/dL (7-18); BUN/Creat Ratio 16.2 RATIO (10-20); Calcium,Total 7.3 mg/dL (8.5-10.1); Chloride 111 mmol/L (98-107); Creatinine, Serum 2.66 mg/dL (0.70-1.30); EST Glomerular Filtration Rate 25 mL/min (>60); Est Glom Filt Rate - Afr Amer 30 mL/min (>60); Estimated Creatinine Clearance 20.05 ml/min; Glucose 82 mg/dL (74-106); Potassium 3.7 mmol/L (3.5-5.1); Sodium Level 144 mmol/L (136-145)
[2022-05-05] MEDS: 0.9% Normal Saline 1,000 ML 125 ML IV (07:39)
[2022-05-05] MEDS: Ensure Clear 120 ML Liquid PO ×4 (09:08→21:17)
[2022-05-05] MEDS: Finasteride 5 MG Tablet PO (09:09)
[2022-05-05] MEDS: Vitamin B Comp W-C Capsule 1 CAP PO ×2 (09:09→21:13)
[2022-05-05] MEDS: Iron Polysaccharide Complex 150 MG CAPSULE PO (09:09)
[2022-05-05] MEDS: Isosorbide Mononitrate 30 MG Tablet PO (09:09)
[2022-05-05] MEDS: Enoxaparin 30 MG/0.3 ML Syringe SC (09:09)
[2022-05-05] MEDS: dilTIAZem CD 120 MG Capsule PO (09:09)
[2022-05-05] MEDS: Amiodarone 200 MG Tablet 100 MG PO ×2 (09:10→16:58)
[2022-05-05] MEDS: Metoprolol Tartrate 25 MG Tablet 12.5 MG PO ×2 (09:10→21:14)
[2022-05-05] MEDS: Pantoprazole Sodium 40 MG Tablet PO (09:10)
--- NOTE | 2022-05-05 09:27 | PN.HOSP_ITS ---
Subjective Subjective Doing well, no issues overnight. Does not have a significant mount of abdominal pain and denies any nausea at this time Objective Data Objective Data Vital Signs: Vital Signs Temp Pulse Resp BP Pulse Ox O2 Del Method O2 Flow Rate 98.1 F 82 18 121/76 H 95 Room Air 2 05/05/22 09:13 05/05/22 09:13 05/05/22 09:13 05/05/22 09:13 05/05/22 09:13 05/05/22 09:13 05/04/22 21:00 Oxygen Flow Rate (L/min) 2 Oxygen Delivery Method Room Air Weight: 141 lb 1.533 oz Body Mass Index (BMI) 21.4 Intake & Output: Intake and Output for Last 24 Hours 05/04/22 05/05/22 05/06/22 03:59 03:59 03:59 Intake Total 2200 / 2200 1178.33 / 1178.33 Output Total 200 / 200 Balance 2200 / 2200 978.33 / 978.33 Lab / Micro Data Result Diagrams: 05/05/22 05:20 05/05/22 05:20 Labs: Laboratory Results - last 24 hr 05/04/22 15:56: WBC 10.8, RBC 4.07 L, Hgb 12.4 L, Hct 38.4 L, MCV 94.3 H, MCH 30.5, MCHC 32.3, RDW Std Deviation 63.9 H, RDW Coeff of Pablo 18.4 H, Plt Count 487 H, MPV 10.5, Immature Gran % (Auto) 0.600, Neut % (Auto) 77.3 H, Lymph % (Auto) 13.3 L, [place] % (Auto) 6.7, Eos % (Auto) 1.6, Baso % (Auto) 0.5, Absolute Neuts (auto) 8.4 H, Absolute Lymphs (auto) 1.44, Nucleated RBC % 0 05/04/22 15:56: PT Cancelled, INR Cancelled 05/04/22 15:56: Sodium 139, Potassium 3.1 L, Chloride 104, Carbon Dioxide 23.0, Anion Gap 12, BUN 44 H, Creatinine 3.04 H, Estim Creat Clear Calc 18.17, Est GFR (MDRD) Af Amer 26 L, Est GFR (MDRD) Non-Af 21 L, BUN/Creatinine Ratio 14.5, Glucose 177 H, Calcium 9.3, Magnesium 2.4, Total Bilirubin 0.70, AST 180 H, ALT 245 H, Alkaline Phosphatase 89, Troponin I High Sens 33, Total Protein 7.8, Albumin 3.1 L, Globulin 4.7 H, Albumin/Globulin Ratio 0.7 L, Lipase 278, TSH 4.62 H 05/04/22 17:00: PT 33.9 H, INR 3.4 05/04/22 18:07: Lactic Acid 1.5 05/04/22 20:09: Urine Color Yellow, Urine Clarity Clear, Urine pH 6.0, Ur Specific [place] 1.010, Urine Protein 15 H, Urine Glucose (UA) Normal, Urine Ketones Negative, Urine Occult Blood 250 H, Urine Nitrite Negative, Urine Bilirubin Negative, Urine Urobilinogen Normal, Ur Leukocyte Esterase 25 H, Urine RBC 50-100 SEEN, Urine WBC 0-5 SEEN, Ur Squamous Epith Cells 0 SEEN, Urine Bacteria 1+, Urine Mucus 0 SEEN 05/05/22 05:20: WBC 19.0 H, RBC 3.22 L, Hgb 9.8 L, Hct 30.2 L, MCV 93.8, MCH 30.4, MCHC 32.5, RDW Std Deviation 63.0 H, RDW Coeff of Pablo 18.3 H, Plt Count 310, MPV 10.0, Immature Gran % (Auto) 0.800, Neut % (Auto) 85.5 H, Lymph % (Auto) 4.9 L, [place] % (Auto) 7.8, Eos % (Auto) 0.7, Baso % (Auto) 0.3, Absolute Neuts (auto) 16.2 H, Absolute Lymphs (auto) 0.93, Nucleated RBC % 0 05/05/22 05:20: Sodium 144, Potassium 3.7, Chloride 111 H, Carbon Dioxide 25.0, Anion Gap 8, BUN 43 H, Creatinine 2.66 H, Estim Creat Clear Calc 20.05, Est GFR (MDRD) Af Amer 30 L, Est GFR (MDRD) Non-Af 25 L, BUN/Creatinine Ratio 16.2, Glucose 82, Calcium 7.3 L Micro: Microbiology 05/04/22 21:54 Stool C. difficile DNA Amplification - Final 05/04/22 16:30 Nasal Secretion SARS-CoV-2 & FLU Antigen (Rapid) - Final Radiography Diagnostic Testing: Radiology Impression Acute Abdomen Series 05/04/22 18:35 IMPRESSION: 1. Mild to moderate cardiomegaly without heart failure. 2. Minimal right lower lobe atelectatic process. 3. No evidence of intestinal obstruction. A mild ileus is present. 4. No abnormal intra-abdominal calcifications or collections of air. No free air. 5. Mild demineralization, no pelvic bone fractures. No hip dislocations. Residue of a previous L3-L5 laminectomy. Residue of a vertebroplasty of the T7, T10, T12, L1 vertebrae. Electronically Signed: Jhon Reynolds MD at 20:13 EDT , Abdomen/Pelvis CT 05/04/22 18:57 IMPRESSION: Diffuse ileus pattern is noted. No evidence for small bowel obstruction.. There are scattered diverticular sac noted throughout the colon. However there is concentric thickening of the leal of the distal descending and sigmoid colon stranding in the fat more consistent with acute colitis. Other findings as above Electronically Signed: Phoenix Alba MD at 21:42 EDT , Physical Exam Narrative General: Alert, Oriented x3, Cooperative, No apparent distress HEENT: Atraumatic, PERRLA, EOMI, Normocephalic Oral: Dry mucosa Neck: Supple, No JVD Lungs: Clear to auscultation, Normal air movement, No rhonchi, No wheeze, No rales Cardiovascular: Regular rate, Regular Rhythm, Normal S1, Normal S2, No murmurs Abdomen: Soft, mild tender pubis, Non-Distended, No Hepato-splenomegaly Extremities: No edema, Capillary Refill Less than 3 Seconds Skin: No rashes, No breakdown Musculoskeletal: No Tenderness to Palpation of Joints or Extremities Neurological: Cranial nerves II-XII grossly intact, Motor Exam 5/5 strength throughout, Sensory exam intact to light touch and pain Psych/Mental Status: Normal Affect, Appropriate Assessment & Plan Assessment/Plan (1) Debility: (2) Colitis: PLAN: Plan 1. 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 Continue with n.p.o. status ? Continue with Zosyn since he developed a leukocytosis ? Continue with IV fluids ? PT/OT, will consult case management for discharge planning ? Renal function is improving, baseline creatinine is 2.2 2. A. fib/CAD status post stent/HTN/HLD/chronic diastolic CHF ? Given his FE, will hold his Lasix ? EF of 60% on his echo in December 2020 ? Can resume his home Imdur as well as amiodarone and metoprolol ? Continue with Coumadin 3. Hypothyroidism ? Stable ? Continue with Synthroid 4. BPH ? Stable ? Continue with Flomax DVT: Coumadin Charges/Coding Visit Charges Inpatient E&M: 62562 Subs Hosp L2
--- NOTE | 2022-05-05 10:00 | CASEMGMT ---
RN GERMAN Face to Face with patient for initial transition planning/care coordination assessment. RN CM introduced self and role at [facility]. Patient sitting in chair, alert and oriented. Patient willing to participate in assessment and is able to answer all questions appropriately. Care providers, pharmacy, and demographics verified. Patient wishes to discharge home, will monitor for possible HHC vs outpatient therapy. Patient states he has no further needs or concerns at this time. CM to follow for discharge planning needs that may arise. PCP: César Chinchilla Specialists: Jesse [employer] certified network associate [facility] Insurance: [employer] Prescription Benefit: Patient unsure Living Will/HPOA: yes, sister in law, Neelima Durant HPOA LNOK: sisters Living Arrangements: Patient lives alone in a single story home with 2 steps and railing to enter the home. Patient states he is independent at home. Transportation: self, may need hospital van at discharge DME/HHC: patient states he has shower chair, raised toilet, cane, walker, and grab bars at home. No previous HHC or SNF. Disposition Plan: Patient to discharge home with family support and follow-up plans in place. Will monitor for possible HHC vs outpatient therapy. [place] VALDEZ, RN, CM
--- NOTE | 2022-05-05 11:05 | CASEMGMT ---
Social Work SW in to speak with pt regarding Advance Directives. Sw informed these documents are not on file. Pt stated he would have to find the documents to bring in. Pt stated may find them at the court house. Pt named Neelima Durant, Sister in Law, as HCPOA. LEEANN Flores
--- NOTE | 2022-05-05 12:11 | CASEMGMT ---
Noted PT did not recommend further therapy but OT did. RADHA PORTER in to pt room, pt states he would be agreeable to going outpt for OT. Currently pt does not want RADHA PORTER to set up his first appt, but would like RADHA PORTER to check back in the morning with him. He states he will need the hospital van set up for dc home. RADHA PORTER to follow.
[2022-05-05] MEDS: Calcium Carbonate 500 MG Tablet PO (21:12)
[2022-05-06] VITALS (14 sets, daily range): BP systolic 107–125; BP diastolic 73–86; PULSE 66–86; RESP 16–18; TEMP 36.6–37; O2SAT 94–96
[2022-05-06] MEDS: Acetaminophen 325 MG Tablet 650 MG PO ×2 (00:22→14:04)
[2022-05-06] MEDS: Levothyroxine 25 MCG TABLET PO (05:31)
[2022-05-06] MEDS: hydrALAZINE 25 MG Tablet 12.5 MG PO ×3 (05:31→21:49)
[2022-05-06] MEDS: Ondansetron 4 MG/2 ML Vial IV (05:31)
[2022-05-06 05:59] LABS: Absolute Lymphocyte Count 1.05 X10^3/uL (0.83-4.51); Absolute Neutrophil Count 6.4 X10^3/uL (2.0-7.7); Basophil# 0.07 X10^3/uL; Basophil% 0.8 % (0-1); Eosinophil# 0.42 X10^3/uL; Eosinophils% 4.8 % (0-5); Hematocrit 29.5 % (40-54); Hemoglobin 9.3 g/dL (13.0-16.5); Lymphocyte # 1.05 X10^3/ul (0.83-4.51); Lymphocyte % 12.1 % (19-41); Mean Corp Hgb Conc 31.5 g/dL (32-36); Mean Corpuscular Volume 95.2 fL (80-94); Mean Platelet Vol. 9.9 fl (6.2-12.0); Monocyte# 0.76 X10^3/uL; Monocyte% 8.7 % (0-10); NRBC Flagged by Analyzer 0 % (0-5); Neutrophil # 6.36 X10^3/uL (2.7-7.7); Platelet Count 289 K/mm3 (150-450); RBC Distribution Width CV 18.3 % (11.6-14.6); RBC Distribution Width SD 63.7 fl (35.1-43.9); White Blood Count 8.7 K/mm3 (4.4-11.0)
[2022-05-06 06:26] LABS: Anion Gap 8 (5-15); BUN 36 mg/dL (7-18); BUN/Creat Ratio 16.1 RATIO (10-20); Calcium,Total 7.8 mg/dL (8.5-10.1); Chloride 109 mmol/L (98-107); Creatinine, Serum 2.24 mg/dL (0.70-1.30); EST Glomerular Filtration Rate 30 mL/min (>60); Est Glom Filt Rate - Afr Amer 36 mL/min (>60); Estimated Creatinine Clearance 23.81 ml/min; Glucose 90 mg/dL (74-106); Potassium 3.3 mmol/L (3.5-5.1); Sodium Level 141 mmol/L (136-145)
[2022-05-06] MEDS: Iron Polysaccharide Complex 150 MG CAPSULE PO (08:06)
[2022-05-06] MEDS: Finasteride 5 MG Tablet PO (08:06)
[2022-05-06] MEDS: Amiodarone 200 MG Tablet 100 MG PO ×2 (08:06→17:07)
[2022-05-06] MEDS: dilTIAZem CD 120 MG Capsule PO (08:06)
[2022-05-06] MEDS: Pantoprazole Sodium 40 MG Tablet PO (08:06)
[2022-05-06] MEDS: Vitamin B Comp W-C Capsule 1 CAP PO ×2 (08:06→21:49)
[2022-05-06] MEDS: Isosorbide Mononitrate 30 MG Tablet PO (08:07)
[2022-05-06] MEDS: Metoprolol Tartrate 25 MG Tablet 12.5 MG PO ×2 (08:07→21:49)
[2022-05-06] MEDS: Enoxaparin 30 MG/0.3 ML Syringe SC (08:07)
--- NOTE | 2022-05-06 08:43 | PCM.PN.HOSP ---
Subjective Subjective Pain is little bit improved however he had some nausea today. White count has resolved Objective Data Objective Data Vital Signs: Vital Signs Temp Pulse Resp BP Pulse Ox O2 Del Method O2 Flow Rate 97.9 F 72 18 122/86 H 94 Room Air 2 05/06/22 08:00 05/06/22 08:07 05/06/22 08:00 05/06/22 08:07 05/06/22 08:00 05/06/22 08:00 05/04/22 21:00 Oxygen Flow Rate (L/min) 2 Oxygen Delivery Method Room Air Weight: 141 lb 1.533 oz Body Mass Index (BMI) 21.4 Intake & Output: Intake and Output for Last 24 Hours 05/05/22 05/06/22 05/07/22 03:59 03:59 03:59 Intake Total 2200 / 2200 2328.33 / 2328.33 200 / 200 Output Total 350 / 350 50 / 50 Balance 2200 / 2200 1977.33 / 1977. 150 / 150 Medical Nutrition Assessment Dietitian: Malnutrition Criteria Met Start: 05/05/22 16:50 Freq: Status: Active Protocol: Document 05/05/22 16:50 RMA (Rec: 05/05/22 16:50 RMA [id number]) Nutrition Malnutrition Evidence of Malnutrition Exists Yes Malnutrition (severe): Acute Illness/Injury Evidenced By Suboptimal Energy Intake ( Severe),Weight Loss (Severe) Intake Problem Inadequate Oral Intake Etiology related to altered GI function /diarrhea Signs/Symptoms as evidenced by clear liquid diet x day 1 today Status Active Problem Clinical Problem Acute Disease or Injury Related Malnutrition Etiology Severe protein-calorie malnutrition in the context of acute illness related to altered GI function and inadequate oral intake Signs/Symptoms as evidenced by~10% wt loss x past 1-2 months, clear liquid diet and PO meeting less than 50% estimated nutrition needs Status Active Problem Recommendation Dietitian Recommendations/Changes Recommend advance diet as tolerated to full liquids and as tolerated to Transitional diet with goal of Regular/ sodium-restricted diet as able . Will continue 120ml ensure clear 4 times per day w/ medpass for now and transition to ensure plus high protein as diet advanced from clear liquids. Monitor weight closely and optimize intake to prevent further wt loss. Lab / Micro Data Result Diagrams: 05/06/22 05:22 05/06/22 05:22 Labs: Laboratory Results - last 24 hr 05/06/22 05:22: WBC 8.7, RBC 3.10 L, Hgb 9.3 L, Hct 29.5 L, MCV 95.2 H, MCH 30.0, MCHC 31.5 L, RDW Std Deviation 63.7 H, RDW Coeff of Pablo 18.3 H, Plt Count 289, MPV 9.9, Immature Gran % (Auto) 0.600, Neut % (Auto) 73.0 H, Lymph % (Auto) 12.1 L, [place] % (Auto) 8.7, Eos % (Auto) 4.8, Baso % (Auto) 0.8, Absolute Neuts (auto) 6.4, Absolute Lymphs (auto) 1.05, Nucleated RBC % 0 05/06/22 05:22: Sodium 141, Potassium 3.3 L, Chloride 109 H, Carbon Dioxide 24.0, Anion Gap 8, BUN 36 H, Creatinine 2.24 H, Estim Creat Clear Calc 23.81, Est GFR (MDRD) Af Amer 36 L, Est GFR (MDRD) Non-Af 30 L, BUN/Creatinine Ratio 16.1, Glucose 90, Calcium 7.8 L Micro: Microbiology 05/04/22 20:09 Urine, Clean Catch Urine Culture - Preliminary Staphylococcus species 05/04/22 21:54 Stool C. difficile DNA Amplification - Final 05/04/22 16:30 Nasal Secretion SARS-CoV-2 & FLU Antigen (Rapid) - Final Physical Exam Narrative General: Alert, Oriented x3, Cooperative, No apparent distress HEENT: Atraumatic, PERRLA, EOMI, Normocephalic Oral: Moist mucosa Neck: Supple, No JVD Lungs: Clear to auscultation, Normal air movement, No rhonchi, No wheeze, No rales Cardiovascular: Regular rate, Regular Rhythm, Normal S1, Normal S2, No murmurs Abdomen: Soft, mild tender pubis, Non-Distended, No Hepato-splenomegaly Extremities: No edema, Capillary Refill Less than 3 Seconds Skin: No rashes, No breakdown Musculoskeletal: No Tenderness to Palpation of Joints or Extremities Neurological: Cranial nerves II-XII grossly intact, Motor Exam 5/5 strength throughout, Sensory exam intact to light touch and pain Psych/Mental Status: Normal Affect, Appropriate Assessment & Plan Assessment/Plan (1) Debility: (2) Colitis: PLAN: Plan 1. 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 Continue with clear liquid and advance as tolerated ? Continue with Zosyn, leukocytosis has resolved ? Continue with IV fluids ? PT/OT, will consult case management for discharge planning ? Renal function is improving, baseline creatinine is 2.2 2. A. fib/CAD status post stent/HTN/HLD/chronic diastolic CHF ? Given his FE, will hold his Lasix ? EF of 60% on his echo in December 2020 ? Can resume his home Imdur as well as amiodarone and metoprolol ? Continue with Coumadin 3. Hypothyroidism ? Stable ? Continue with Synthroid 4. BPH ? Stable ? Continue with Flomax DVT: Coumadin Charges/Coding Visit Charges Inpatient E&M: 01296 Subs Hosp L2
[2022-05-06] MEDS: Ensure Clear 120 ML Liquid PO ×3 (09:28→21:49)
[2022-05-06 09:29] LABS: Magnesium 1.8 mg/dL (1.6-2.6); Phosphorus 2.7 mg/dL (2.5-4.9)
[2022-05-07] VITALS (15 sets, daily range): BP systolic 125–143; BP diastolic 81–88; PULSE 73–88; RESP 16–18; TEMP 36.7–36.8; O2SAT 94–95
[2022-05-07] MEDS: Ondansetron 4 MG/2 ML Vial IV ×2 (01:07→11:29)
[2022-05-07] MEDS: Pantoprazole Sodium 40 MG Tablet PO ×2 (04:54→22:31)
[2022-05-07] MEDS: Calcium Carbonate 500 MG Tablet PO (04:54)
[2022-05-07] MEDS: Acetaminophen 325 MG Tablet 650 MG PO ×3 (05:31→22:31)
[2022-05-07 06:04] LABS: Absolute Lymphocyte Count 0.81 X10^3/uL (0.83-4.51); Absolute Neutrophil Count 7.8 X10^3/uL (2.0-7.7); Basophil# 0.06 X10^3/uL; Basophil% 0.6 % (0-1); Eosinophil# 0.25 X10^3/uL; Eosinophils% 2.5 % (0-5); Hematocrit 30.4 % (40-54); Hemoglobin 9.9 g/dL (13.0-16.5); Lymphocyte # 0.81 X10^3/ul (0.83-4.51); Lymphocyte % 8.2 % (19-41); Mean Corp Hgb Conc 32.6 g/dL (32-36); Mean Corpuscular Hgb 30.6 pg (27.0-32.0); Mean Corpuscular Volume 93.8 fL (80-94); Monocyte# 0.85 X10^3/uL; Monocyte% 8.6 % (0-10); NRBC Flagged by Analyzer 0 % (0-5); Neutrophil # 7.83 X10^3/uL (2.7-7.7); Neutrophil % 79.4 % (47-70); Platelet Count 302 K/mm3 (150-450); RBC Distribution Width CV 18.3 % (11.6-14.6); RBC Distribution Width SD 62.8 fl (35.1-43.9); Red Blood Count 3.24 M/mm3 (4.6-6.2); White Blood Count 9.9 K/mm3 (4.4-11.0)
[2022-05-07 06:24] LABS: Anion Gap 8 (5-15); BUN 26 mg/dL (7-18); BUN/Creat Ratio 13.6 RATIO (10-20); Calcium,Total 8.1 mg/dL (8.5-10.1); Chloride 108 mmol/L (98-107); Creatinine, Serum 1.91 mg/dL (0.70-1.30); EST Glomerular Filtration Rate 36 mL/min (>60); Est Glom Filt Rate - Afr Amer 44 mL/min (>60); Estimated Creatinine Clearance 27.92 ml/min; Glucose 95 mg/dL (74-106); Potassium 3.1 mmol/L (3.5-5.1); Sodium Level 141 mmol/L (136-145)
[2022-05-07] MEDS: Levothyroxine 25 MCG TABLET PO (06:42)
[2022-05-07] MEDS: hydrALAZINE 25 MG Tablet 12.5 MG PO ×3 (06:42→22:32)
[2022-05-07 07:35] LABS: Magnesium 1.8 mg/dL (1.6-2.6)
[2022-05-07 07:50] LABS: International Normalized Ratio 2.8; Prothrombin Time (Protime)PT. 28.9 SECONDS (11.7-14.9)
[2022-05-07] MEDS: Potassium Chloride Oral Tablet 20 MEQ 60 MEQ PO (08:11)
[2022-05-07] MEDS: Vitamin B Comp W-C Capsule 1 CAP PO ×2 (08:11→22:31)
[2022-05-07] MEDS: dilTIAZem CD 120 MG Capsule PO (08:11)
[2022-05-07] MEDS: Isosorbide Mononitrate 30 MG Tablet PO (08:11)
[2022-05-07] MEDS: Amiodarone 200 MG Tablet 100 MG PO ×2 (08:11→16:03)
[2022-05-07] MEDS: Iron Polysaccharide Complex 150 MG CAPSULE PO (08:12)
[2022-05-07] MEDS: Enoxaparin 30 MG/0.3 ML Syringe SC (08:12)
[2022-05-07] MEDS: Finasteride 5 MG Tablet PO (08:12)
[2022-05-07] MEDS: Metoprolol Tartrate 25 MG Tablet 12.5 MG PO ×2 (08:12→22:32)
--- NOTE | 2022-05-07 10:09 | PN.HOSP_ITS ---
Subjective Subjective Patient initially states that he is feeling terrible, however later in our conversation he does admit that he is feeling better than presentation. He states he still having some intermittent nausea but feels that he could try a regular diet and also complains of some intermittent heartburn. He denies experiencing either these at this time. He states he is passing flatus without any problem and has had 1 bowel movement since arrival. He indicated he called Dr. Molina's office to discuss his labs with him. I did discuss with him that his white count had resolved and his renal function has improved and his INR is therapeutic at 2.8. He did feel that he could try a regular diet and I discussed with him that we would add an extra dose of his PPI and that Tums are available for any heartburn. We also discussed him sitting upright for an hour after eating. Objective Data Objective Data Vital Signs: Vital Signs Temp Pulse Resp BP Pulse Ox O2 Del Method O2 Flow Rate 98.3 F 76 18 143/86 H 94 Room Air 2 05/07/22 08:04 05/07/22 08:12 05/07/22 08:04 05/07/22 08:12 05/07/22 08:04 05/07/22 08:08 05/04/22 21:00 Oxygen Flow Rate (L/min) 2 Oxygen Delivery Method Room Air Weight: 64 kg Body Mass Index (BMI) 21.4 Intake & Output: Intake and Output for Last 24 Hours 05/05/22 05/06/22 05/07/22 23:59 23:59 23:59 Intake Total 2278.33 / 2278.33 350 / 350 50.25 / 50.25 Output Total 200 / 200 200 / 200 Balance 2078.33 / 2078.33 150 / 150 50.25 / 50.25 Medical Nutrition Assessment Dietitian: Malnutrition Criteria Met Start: 05/05/22 16:50 Freq: Status: Active Protocol: Document 05/05/22 16:50 RMA (Rec: 05/05/22 16:50 RMA [id number]) Nutrition Malnutrition Evidence of Malnutrition Exists Yes Malnutrition (severe): Acute Illness/Injury Evidenced By Suboptimal Energy Intake ( Severe),Weight Loss (Severe) Intake Problem Inadequate Oral Intake Etiology related to altered GI function /diarrhea Signs/Symptoms as evidenced by clear liquid diet x day 1 today Status Active Problem Clinical Problem Acute Disease or Injury Related Malnutrition Etiology Severe protein-calorie malnutrition in the context of acute illness related to altered GI function and inadequate oral intake Signs/Symptoms as evidenced by~10% wt loss x past 1-2 months, clear liquid diet and PO meeting less than 50% estimated nutrition needs Status Active Problem Recommendation Dietitian Recommendations/Changes Recommend advance diet as tolerated to full liquids and as tolerated to Transitional diet with goal of Regular/ sodium-restricted diet as able . Will continue 120ml ensure clear 4 times per day w/ medpass for now and transition to ensure plus high protein as diet advanced from clear liquids. Monitor weight closely and optimize intake to prevent further wt loss. Lab / Micro Data Result Diagrams: 05/07/22 05:20 05/07/22 05:20 Labs: Laboratory Results - last 24 hr 05/07/22 05:20: WBC 9.9, RBC 3.24 L, Hgb 9.9 L, Hct 30.4 L, MCV 93.8, MCH 30.6, MCHC 32.6, RDW Std Deviation 62.8 H, RDW Coeff of Pablo 18.3 H, Plt Count 302, MPV 10.0, Immature Gran % (Auto) 0.700, Neut % (Auto) 79.4 H, Lymph % (Auto) 8.2 L, [place] % (Auto) 8.6, Eos % (Auto) 2.5, Baso % (Auto) 0.6, Absolute Neuts (auto) 7.8 H, Absolute Lymphs (auto) 0.81 L, Nucleated RBC % 0 05/07/22 05:20: Sodium 141, Potassium 3.1 L, Chloride 108 H, Carbon Dioxide 25.0, Anion Gap 8, BUN 26 H, Creatinine 1.91 H, Estim Creat Clear Calc 27.92, Est GFR (MDRD) Af Amer 44 L, Est GFR (MDRD) Non-Af 36 L, BUN/Creatinine Ratio 13.6, Glucose 95, Calcium 8.1 L 05/07/22 05:22: Magnesium 1.8 05/07/22 07:35: PT 28.9 H, INR 2.8 Micro: Microbiology 05/04/22 20:09 Urine, Clean Catch Urine Culture - Final Staphylococcus haemolyticus 05/04/22 17:01 Blood Culture (Wb) - Anticubital Right Blood Culture - Preliminary No growth in 48 hours. 05/04/22 16:30 Blood Culture (Wb) - Left Forearm Blood Culture - Preliminary No growth in 48 hours. 05/04/22 21:54 Stool C. difficile DNA Amplification - Final 05/04/22 16:30 Nasal Secretion SARS-CoV-2 & FLU Antigen (Rapid) - Final Physical Exam Const alert, oriented x3, no apparent distress and average body habitus Constitutional Narrative: Elderly white male lying in bed, affect is very flat, multiple complaints, appears nontoxic and watching television HEENT head/scalp atraumatic and moist oral mucous membranes HEENT Narrative: Dentition is fair for age, Mallampati is 2, no thrush Resp normal respiratory effort, no retractions, no use of accessory muscles and clear to auscultation bilaterally Auscultation: Negative for crackles, rales, rhonchi or wheezes Cardio regular rate, regular rhythm, S1 normal heart sound, S2 normal heart sound, no murmurs, no rub, no gallops, no clicks and no JVD Cardio Narrative: Few ectopic beats GI normal to inspection, nondistended, normoactive bowel sounds and soft to palpation GI Narrative: Mild tenderness on the right side of the abdomen but otherwise nontender Palpation: tender Extremity no clubbing, cyanosis or edema Extremity Narrative: 2+ pedal pulses Neuro oriented x3, moves all extremities and no focal motor deficits Psych Psych Narrative: Affect is flattened patient seems somewhat depressed Assessment & Plan Assessment/Plan (1) Colitis: (2) Generalized weakness: (3) Hypokalemia: PLAN: Plan Acute colitis -Resolving -Minimal abdominal pain at this time -Tolerating clear liquid and full liquid diet without difficulty -Advance to regular cardiac diet -Patient is complaining of some GERD associated with eating and will recommend staying upright for 30 to 60 minutes following p.o. intake and increase PPI to twice daily -As needed Tums -No further diarrhea -Serum creatinine is at baseline and we will therefore discontinue IV fluids -Leukocytosis remains normalized -Continue Zosyn and will plan to discharge with coverage for 7 to 10 days of total treatment -We will refer to outpatient GI for colonoscopy after colitis has resolved FE on CKD stage IIIb -FE has resolved -Baseline serum creatinine is 1.75-2.35 -Serum creatinine currently 1.91 -Discontinue IV fluids -Continue to monitor renal function Hypokalemia -A.m. potassium is 3.1 -Magnesium is within normal limits -Replace with oral potassium and recheck in a.m. Debility/generalized weakness -PT has not recommended any further therapy -OT has recommended some continued therapy and he indicated he be agreeable for outpatient occupational therapy -Hopefully will be able to discharge home tomorrow with referral for outpatient occupational therapy at discharge Thoracic aortic aneurysm -Being followed by cardiology -Most recent CT from November 2021 showed a stable 4 cm ascending thoracic aortic aneurysm -Continue medical therapy CAD -PCI with BMS to proximal LAD 07/2000 -Continue medical therapy with metoprolol -No aspirin secondary to previous GI bleed and chronic anemia -Patient no longer on statin per cardiology documentation PAF -Continue amiodarone -Continue metoprolol -Continue Cardizem- -Continue warfarin as ordered -INR is therapeutic at 2.8 -Patient with recent event monitor for 30 days in November showing PVCs periodically, intermittent A. fib, and some SV ectopy HFpEF -Compensated -Continue medical therapy Hyperlipidemia -Patient utilizing lifestyle modifications and not on chronic statin therapy Hypothyroidism -TSH is mildly elevated at 4.62 -Check free T4 -Continue home levo and GERD with history of GI bleed -Continue Protonix but will increase to 40 twice daily with symptoms BPH -Continue Flomax Chronic anemia -Counts appear stable -Patient with history of GI bleed -Continue to monitor Hypertension -Continue home occasions diltiazem/metoprolol/hydralazine/isosorbide mononitrate DVT prophylaxis -Patient fully anticoagulated with therapeutic INR CODE STATUS -Full code Charges/Coding Visit Charges Inpatient E&M: 81349 Subs Hosp L2
[2022-05-07 11:11] LABS: Absolute Lymphocyte Count 0.52 X10^3/uL (0.83-4.51); Absolute Neutrophil Count 7.9 X10^3/uL (2.0-7.7); Basophil# 0.05 X10^3/uL; Basophil% 0.5 % (0-1); Differential Indicated SCAN CRITERIA MET; Eosinophil# 0.11 X10^3/uL; Eosinophils% 1.2 % (0-5); Hematocrit 28.7 % (40-54); Hemoglobin 9.2 g/dL (13.0-16.5); Lymphocyte # 0.52 X10^3/ul (0.83-4.51); Lymphocyte % 5.6 % (19-41); Mean Corp Hgb Conc 32.1 g/dL (32-36); Mean Corpuscular Hgb 30.1 pg (27.0-32.0); Mean Corpuscular Volume 93.8 fL (80-94); Mean Platelet Vol. 9.5 fl (6.2-12.0); Monocyte# 0.76 X10^3/uL; Monocyte% 8.1 % (0-10); NRBC Flagged by Analyzer 0 % (0-5); Neutrophil # 7.87 X10^3/uL (2.7-7.7); Neutrophil % 84.2 % (47-70); POSITIVE DIFFERENTIAL YES; Platelet Count 305 K/mm3 (150-450); RBC Distribution Width SD 61.8 fl (35.1-43.9); Red Blood Count 3.06 M/mm3 (4.6-6.2); White Blood Count 9.4 K/mm3 (4.4-11.0)
[2022-05-07 11:23] LABS: Differential Comment SCANNED
[2022-05-07] MEDS: 0.9% Saline Lock 10 ML Syringe IV (11:29)
[2022-05-07] MEDS: Jantoven 2 MG Tablet PO (16:05)
--- NOTE | 2022-05-07 16:05 | CASEMGMT ---
RADHA PORTER in to pt room, pt walking around bed making it up. Discussed pt still going to outpt therapy at [facility]. Pt states this is still what he wants to do. He states he wants to get home and get settled then go to [facility]. He does not want RADHA PORTER to set up for him. Pt states he will call his 's sister to transport him home. ([place]). He is aware the hospital van does not run on the weekend and he states he does not have money for a cab. Pt denies further needs.
[2022-05-07] MEDS: Ensure Clear 120 ML Liquid PO (22:32)
[2022-05-08] VITALS (15 sets, daily range): BP systolic 119–146; BP diastolic 70–97; PULSE 83–110; RESP 14–18; TEMP 36.3–37.1; O2SAT 94–97
[2022-05-08] MEDS: Ondansetron 4 MG/2 ML Vial IV ×2 (04:15→21:05)
[2022-05-08] MEDS: 0.9% Saline Lock 10 ML Syringe IV ×2 (04:15→21:05)
[2022-05-08] MEDS: Acetaminophen 325 MG Tablet 650 MG PO ×2 (04:28→17:31)
[2022-05-08] MEDS: hydrALAZINE 25 MG Tablet 12.5 MG PO ×3 (06:11→23:19)
[2022-05-08] MEDS: Levothyroxine 25 MCG TABLET PO (06:11)
[2022-05-08 08:22] LABS: International Normalized Ratio 2.5; Prothrombin Time (Protime)PT. 26.5 SECONDS (11.7-14.9)
[2022-05-08 08:43] LABS: Anion Gap 7 (5-15); BUN 20 mg/dL (7-18); BUN/Creat Ratio 11.1 RATIO (10-20); Calcium,Total 8.3 mg/dL (8.5-10.1); Chloride 107 mmol/L (98-107); EST Glomerular Filtration Rate 39 mL/min (>60); Est Glom Filt Rate - Afr Amer 47 mL/min (>60); Estimated Creatinine Clearance 29.63 ml/min; Glucose 101 mg/dL (74-106); Potassium 3.5 mmol/L (3.5-5.1); Sodium Level 139 mmol/L (136-145); T4 Free Direct 1.76 ng/dL (0.76-1.46)
--- NOTE | 2022-05-08 09:09 | CT_ITS ---
STUDY: CT ABDOMEN AND PELVIS WITHOUT CONTRAST REASON FOR EXAM: Male, 81 years old. Diffuse abdominal pain RADIATION DOSAGE (If Supplied By Facility): CTDIvol = ( 6.65 ) mGy, DLP = ( 352.38 ) mGycm TECHNIQUE: Transaxial images were obtained from the dome of the diaphragm to the symphysis pubis without oral contrast, and without intravenous contrast. Sagittal and coronal images were reconstructed. Individualized dose optimization techniques were used for this CT. COMPARISON: 05/04/2022 FINDINGS: Chronic interstitial changes in both lung salvador with evidence of pulmonary vascular congestion, stable bilateral pleural effusions and atelectasis. Stable cardiomegaly with calcified coronary vessels. Normal liver. Normal gallbladder and extrahepatic biliary system. Normal spleen. Normal pancreas. Normal bilateral adrenal glands. Kidneys show atrophy without obstructive uropathy or suspicious solid renal lesion, stable bilateral simple cysts are noted. Stable small retrocardiac hiatal hernia with evidence. Normal small intestine. Retained stool noted in the colon along with scattered diverticulosis, this is particularly noted in the sigmoid colon where an underlying lesion cannot be excluded due to the extensive diverticular disease. No CT evidence of acute diverticulitis. The appendix is visualized and appears normal. Appendix seen on coronal recon images 58 through 65 There is diffuse atherosclerotic calcification of the abdominal aorta with elongation and tortuosity, but without a demonstrated aneurysm. Normal inferior vena cava. Normal retroperitoneum. Brachytherapy beads noted in the prostate. Normal abdominal wall. Extensive degenerative changes throughout the visualized thoracic and lumbar spine with multiple previous vertebroplasties no acute fracture, there is a subacute healing fracture in the left inferior pubic ramus. At T10, T12 and L1. CT/Abdomen/Pelvis without Cont IMPRESSION: Retained stool throughout the majority of the colon with colonic diverticulosis, particularly in the sigmoid colon. An underlying lesion cannot be excluded, but there is no CT evidence of acute diverticulitis. Subacute healing left inferior pubic ramus fracture Stable renal cysts, no specific follow-up needed. Extensive degenerative bony changes in the lumbar spine and elsewhere in the pelvis. Previous vertebroplasties noted Chronic interstitial changes in both lung bases with pulmonary vessel congestion, stable pleural effusions and atelectasis. Stable cardiomegaly with calcified coronary vessels Electronically Signed: Joe Jennings MD at 10:15 EDT ,
--- NOTE | 2022-05-08 09:22 | US_ITS ---
STUDY: CT ABDOMEN AND PELVIS WITHOUT CONTRAST REASON FOR EXAM: Male, 81 years old. Diffuse abdominal pain RADIATION DOSAGE (If Supplied By Facility): CTDIvol = ( 6.65 ) mGy, DLP = ( 352.38 ) mGycm TECHNIQUE: Transaxial images were obtained from the dome of the diaphragm to the symphysis pubis without oral contrast, and without intravenous contrast. Sagittal and coronal images were reconstructed. Individualized dose optimization techniques were used for this CT. COMPARISON: 05/04/2022 FINDINGS: Chronic interstitial changes in both lung salvador with evidence of pulmonary vascular congestion, stable bilateral pleural effusions and atelectasis. Stable cardiomegaly with calcified coronary vessels. Normal liver. Normal gallbladder and extrahepatic biliary system. Normal spleen. Normal pancreas. Normal bilateral adrenal glands. Kidneys show atrophy without obstructive uropathy or suspicious solid renal lesion, stable bilateral simple cysts are noted. Stable small retrocardiac hiatal hernia with evidence. Normal small intestine. Retained stool noted in the colon along with scattered diverticulosis, this is particularly noted in the sigmoid colon where an underlying lesion cannot be excluded due to the extensive diverticular disease. No CT evidence of acute diverticulitis. The appendix is visualized and appears normal. Appendix seen on coronal recon images 58 through 65 There is diffuse atherosclerotic calcification of the abdominal aorta with elongation and tortuosity, but without a demonstrated aneurysm. Normal inferior vena cava. Normal retroperitoneum. Brachytherapy beads noted in the prostate. Normal abdominal wall. Extensive degenerative changes throughout the visualized thoracic and lumbar spine with multiple previous vertebroplasties no acute fracture, there is a subacute healing fracture in the left inferior pubic ramus. At T10, T12 and L1. US/Abdomen Limited IMPRESSION: Retained stool throughout the majority of the colon with colonic diverticulosis, particularly in the sigmoid colon. An underlying lesion cannot be excluded, but there is no CT evidence of acute diverticulitis. Subacute healing left inferior pubic ramus fracture Stable renal cysts, no specific follow-up needed. Extensive degenerative bony changes in the lumbar spine and elsewhere in the pelvis. Previous vertebroplasties noted Chronic interstitial changes in both lung bases with pulmonary vessel congestion, stable pleural effusions and atelectasis. Stable cardiomegaly with calcified coronary vessels Electronically Signed: Joe Jennings MD at 10:15 EDT ,
--- NOTE | 2022-05-08 09:28 | NURSING ---
Patient off unit to CT and Ultrasound at this time.
[2022-05-08 09:39] LABS: AST(SGOT) 67 U/L (15-37); Alanine Aminotransfer ALT/SGPT 133 U/L (16-61); Albumin, Serum 2.8 g/dL (3.2-5.0); Alkaline Phosphatase 51 U/L (45-117); Bilirubin, Direct 0.57 mg/dL (0.00-0.30); Protein, Total 6.8 g/dL (6.4-8.2)
--- NOTE | 2022-05-08 09:44 | PCM.PN.HOSP ---
Subjective Subjective Patient developed worsening abdominal pain overnight predominantly in the right upper quadrant. He is also had some dry heaving and nausea this morning. He states most of this worsened throughout the night. Denies any chest pain or shortness of breath. Patient does indicate he still has his gallbladder. Objective Data Objective Data Vital Signs: Vital Signs Temp Pulse Resp BP Pulse Ox O2 Del Method O2 Flow Rate 97.4 F L 94 18 134/70 H 94 Room Air 2 05/08/22 08:57 05/08/22 08:57 05/08/22 08:57 05/08/22 08:57 05/08/22 08:57 05/08/22 08:57 05/04/22 21:00 Oxygen Flow Rate (L/min) 2 Oxygen Delivery Method Room Air Weight: 64 kg Body Mass Index (BMI) 21.4 Intake & Output: Intake and Output for Last 24 Hours 05/06/22 05/07/22 05/08/22 23:59 23:59 23:59 Intake Total 350 / 350 150.25 / 150.25 50 / 50 Output Total 200 / 200 Balance 150 / 150 150.25 / 150.25 50 / 50 Medical Nutrition Assessment Dietitian: Malnutrition Criteria Met Start: 05/05/22 16:50 Freq: Status: Active Protocol: Document 05/05/22 16:50 RMA (Rec: 05/05/22 16:50 RMA [id number]) Nutrition Malnutrition Evidence of Malnutrition Exists Yes Malnutrition (severe): Acute Illness/Injury Evidenced By Suboptimal Energy Intake ( Severe),Weight Loss (Severe) Intake Problem Inadequate Oral Intake Etiology related to altered GI function /diarrhea Signs/Symptoms as evidenced by clear liquid diet x day 1 today Status Active Problem Clinical Problem Acute Disease or Injury Related Malnutrition Etiology Severe protein-calorie malnutrition in the context of acute illness related to altered GI function and inadequate oral intake Signs/Symptoms as evidenced by~10% wt loss x past 1-2 months, clear liquid diet and PO meeting less than 50% estimated nutrition needs Status Active Problem Recommendation Dietitian Recommendations/Changes Recommend advance diet as tolerated to full liquids and as tolerated to Transitional diet with goal of Regular/ sodium-restricted diet as able . Will continue 120ml ensure clear 4 times per day w/ medpass for now and transition to ensure plus high protein as diet advanced from clear liquids. Monitor weight closely and optimize intake to prevent further wt loss. Lab / Micro Data Result Diagrams: 05/07/22 10:58 05/08/22 07:24 Labs: Laboratory Results - last 24 hr 05/07/22 10:58: WBC 9.4, RBC 3.06 L, Hgb 9.2 L, Hct 28.7 L, MCV 93.8, MCH 30.1, MCHC 32.1, RDW Std Deviation 61.8 H, RDW Coeff of Pablo 18.0 H, Plt Count 305, MPV 9.5, Immature Gran % (Auto) 0.400, Neut % (Auto) 84.2 H, Lymph % (Auto) 5.6 L, [place] % (Auto) 8.1, Eos % (Auto) 1.2, Baso % (Auto) 0.5, Absolute Neuts (auto) 7.9 H, Absolute Lymphs (auto) 0.52 L, Nucleated RBC % 0, Differential Comment SCANNED 05/08/22 07:24: PT 26.5 H, INR 2.5 05/08/22 07:24: Sodium 139, Potassium 3.5, Chloride 107, Carbon Dioxide 25.0, Anion Gap 7, BUN 20 H, Creatinine 1.80 H, Estim Creat Clear Calc 29.63, Est GFR (MDRD) Af Amer 47 L, Est GFR (MDRD) Non-Af 39 L, BUN/Creatinine Ratio 11.1, Glucose 101, Calcium 8.3 L, Free T4 1.76 H 05/08/22 07:24: Total Bilirubin 1.40 H, Direct Bilirubin 0.57 H, AST 67 H, ALT 133 H, Alkaline Phosphatase 51, Total Protein 6.8, Albumin 2.8 L, Globulin 4.0 Micro: Microbiology 05/04/22 20:09 Urine, Clean Catch Urine Culture - Final Staphylococcus haemolyticus 05/04/22 17:01 Blood Culture (Wb) - Anticubital Right Blood Culture - Preliminary No growth in 48 hours. 05/04/22 16:30 Blood Culture (Wb) - Left Forearm Blood Culture - Preliminary No growth in 48 hours. 05/04/22 21:54 Stool C. difficile DNA Amplification - Final 05/04/22 16:30 Nasal Secretion SARS-CoV-2 & FLU Antigen (Rapid) - Final Physical Exam Const alert, oriented x3, no apparent distress and average body habitus Constitutional Narrative: Elderly white male lying in bed, appears uncomfortable, affect is very flat, nursing at the bedside, holding an emesis bag with intermittent dry heaving HEENT head/scalp atraumatic and moist oral mucous membranes HEENT Narrative: Dentition is fair, Mallampati 2, mucous membranes are moist, no thrush Eyes PERRL, EOMs intact bilaterally and conjunctivae normal Eyes Narrative: No scleral icterus Neck no lymphadenopathy, supple and no JVD Neck Narrative: Trachea midline, no thyroid enlargement Resp normal respiratory effort, no retractions, no use of accessory muscles and clear to auscultation bilaterally Auscultation: Negative for crackles, rales, rhonchi or wheezes Cardio regular rate, S1 normal heart sound, S2 normal heart sound, no murmurs, no rub, no gallops, no clicks and no JVD Cardio Narrative: Atrial fibrillation with controlled rate GI normal to inspection, nondistended, normoactive bowel sounds GI Narrative: Tender right upper quadrant with noted rebound tenderness as well Palpation: tender RUQ and Hernández's sign Extremity no clubbing, cyanosis or edema Extremity Narrative: 2+ pedal pulses Neuro oriented x3, CN's II-XII intact bilaterally, moves all extremities and no focal motor deficits Speech: speech normal Psych Psych Narrative: Affect is flattened patient seems somewhat depressed Assessment & Plan Assessment/Plan (1) Colitis: (2) Generalized weakness: (3) Hypokalemia: PLAN: Plan Acute colitis -This seems to be resolved -No further diarrhea -Continue Zosyn and will plan to discharge with coverage for 7 to 10 days of total treatment -We will refer to outpatient GI for colonoscopy after colitis has resolved Right upper quadrant pain/nausea/vomiting -Concerning for gallbladder abnormalities -LFTs are slightly elevated with an elevated bilirubin -We will check lipase -Repeat CT of the abdomen without contrast due to ongoing nausea and no IV contrast secondary to CKD -Check right upper quadrant ultrasound -N.p.o.--> okay for p.o. 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 -Continue to monitor renal function Hypokalemia -Resolved Debility/generalized weakness -PT has not recommended any further therapy -OT has recommended some continued therapy and he indicated he be agreeable for outpatient occupational therapy -Hopefully will be able to discharge home tomorrow with referral for outpatient occupational therapy at discharge Thoracic aortic aneurysm -Being followed by cardiology -Most recent CT from November 2021 showed a stable 4 cm ascending thoracic aortic aneurysm -Continue medical therapy CAD -PCI with BMS to proximal LAD 07/2000 -Continue medical therapy with metoprolol -No aspirin secondary to previous GI bleed and chronic anemia -Patient no longer on statin per cardiology documentation PAF -Patient currently appears to be in a flutter/fib -Continue amiodarone -Continue metoprolol -Continue Cardizem -Continue warfarin as ordered -INR is therapeutic at 2.5 -Patient with recent event monitor for 30 days in November showing PVCs periodically, intermittent A. fib, and some SV ectopy HFpEF -Compensated -Continue medical therapy Hyperlipidemia -Patient utilizing lifestyle modifications and not on chronic statin therapy Hypothyroidism -TSH was mildly elevated at 4.62 with a free T4 of 1.76 -Suspect euthyroid sick and recommend follow-up in 6 weeks -Continue home levothyroxine GERD with history of GI bleed -We will switch to twice daily IV Protonix while patient n.p.o. BPH -Continue Flomax Chronic anemia -Counts appear stable -Patient with history of GI bleed -Continue to monitor Hypertension -Continue home occasions diltiazem/metoprolol/hydralazine/isosorbide mononitrate DVT prophylaxis -Patient fully anticoagulated with therapeutic INR -Continue to monitor as we are holding Coumadin at this time in case gallbladder issues are identified CODE STATUS -Full code Charges/Coding Visit Charges Inpatient E&M: 39925 Subs Hosp L3
[2022-05-08 10:07] LABS: Lipase 104 U/L (73-393)
[2022-05-08] MEDS: Metoprolol Tartrate 25 MG Tablet 12.5 MG PO ×2 (10:44→23:19)
[2022-05-08] MEDS: Isosorbide Mononitrate 30 MG Tablet PO (10:44)
[2022-05-08] MEDS: Amiodarone 200 MG Tablet 100 MG PO ×2 (10:44→17:30)
[2022-05-08] MEDS: dilTIAZem CD 120 MG Capsule PO (10:45)
[2022-05-08] MEDS: Lactated Ringers 1,000 ML 75 ML IV ×2 (10:49→23:18)
[2022-05-08] MEDS: Vitamin B Comp W-C Capsule 1 CAP PO (23:19)
[2022-05-09] VITALS (17 sets, daily range): BP systolic 126–139; BP diastolic 72–110; PULSE 79–106; RESP 16–20; TEMP 36.2–37.5; O2SAT 87–94
[2022-05-09] MEDS: hydrALAZINE 25 MG Tablet 12.5 MG PO ×3 (06:42→20:25)
[2022-05-09] MEDS: Levothyroxine 25 MCG TABLET PO (06:44)
[2022-05-09 07:05] LABS: Absolute Lymphocyte Count 0.51 X10^3/uL (0.83-4.51); Absolute Neutrophil Count 8.3 X10^3/uL (2.0-7.7); Basophil# 0.05 X10^3/uL; Basophil% 0.5 % (0-1); Eosinophil# 0.08 X10^3/uL; Eosinophils% 0.8 % (0-5); Hematocrit 27.4 % (40-54); Hemoglobin 8.8 g/dL (13.0-16.5); Lymphocyte # 0.51 X10^3/ul (0.83-4.51); Mean Corp Hgb Conc 32.1 g/dL (32-36); Mean Corpuscular Hgb 30.6 pg (27.0-32.0); Mean Corpuscular Volume 95.1 fL (80-94); Mean Platelet Vol. 10.3 fl (6.2-12.0); Monocyte# 1.09 X10^3/uL; Monocyte% 10.8 % (0-10); NRBC Flagged by Analyzer 0.2 % (0-5); Neutrophil % 82.1 % (47-70); POSITIVE DIFFERENTIAL YES; Platelet Count 270 K/mm3 (150-450); RBC Distribution Width CV 18.6 % (11.6-14.6); Red Blood Count 2.88 M/mm3 (4.6-6.2); White Blood Count 10.1 K/mm3 (4.4-11.0)
[2022-05-09 07:10] LABS: International Normalized Ratio 2.6; Prothrombin Time (Protime)PT. 27.6 SECONDS (11.7-14.9)
[2022-05-09 07:11] LABS: Anion Gap 7 (5-15); BUN 16 mg/dL (7-18); BUN/Creat Ratio 10.5 RATIO (10-20); Chloride 108 mmol/L (98-107); Creatinine, Serum 1.53 mg/dL (0.70-1.30); EST Glomerular Filtration Rate 47 mL/min (>60); Est Glom Filt Rate - Afr Amer 57 mL/min (>60); Estimated Creatinine Clearance 34.86 ml/min; Glucose 92 mg/dL (74-106); Magnesium 1.7 mg/dL (1.6-2.6); Potassium 3.3 mmol/L (3.5-5.1); Sodium Level 139 mmol/L (136-145)
[2022-05-09 07:15] LABS: Differential Indicated SCAN CRITERIA MET
[2022-05-09 07:34] LABS: AST(SGOT) 56 U/L (15-37); Alanine Aminotransfer ALT/SGPT 109 U/L (16-61); Albumin, Serum 2.4 g/dL (3.2-5.0); Alkaline Phosphatase 43 U/L (45-117); Globulin 3.7 g/dL (2.2-4.2); Protein, Total 6.1 g/dL (6.4-8.2)
[2022-05-09] MEDS: Iron Polysaccharide Complex 150 MG CAPSULE PO (08:20)
[2022-05-09] MEDS: Amiodarone 200 MG Tablet 100 MG PO ×2 (08:20→16:48)
[2022-05-09] MEDS: Finasteride 5 MG Tablet PO (08:20)
[2022-05-09] MEDS: dilTIAZem CD 120 MG Capsule PO (08:20)
[2022-05-09] MEDS: Metoprolol Tartrate 25 MG Tablet 12.5 MG PO ×2 (08:20→20:26)
[2022-05-09] MEDS: Vitamin B Comp W-C Capsule 1 CAP PO ×2 (08:21→20:26)
[2022-05-09] MEDS: Isosorbide Mononitrate 30 MG Tablet PO (08:21)
[2022-05-09] MEDS: Polyethylene Glycol 3350 17 GM PACKET PO (08:34)
[2022-05-09 09:47] LABS: Differential Comment SCANNED
--- NOTE | 2022-05-09 10:10 | NM_ITS ---
CLINICAL: 81-year-old male with history of abdominal pain. RADIONUCLIDE HEPATOBILIARY SCINTIGRAPHY COMPARISON: CT of the abdomen-pelvis and abdominal ultrasound reports 05/08/2022 FINDINGS: Following the intravenous administration of 6.0 mCi of 99m Tc Mebrofenin, hepatobiliary images reveal: 1. Relatively prompt and homogeneous radiopharmaceutical concentration is noted by a normal sized liver. No parenchymal defects are identified. 2. Gallbladder activity is identified at 9-10 minutes post radiopharmaceutical administration. 3. Small intestinal tract is observed at 11 minutes following tracer injection. 4. Washout of the radiopharmaceutical by the hepatic parenchyma appears qualitatively normal. 5. There is transient duodenal-gastric reflux identified at 9-17 minutes following radiotracer provision. Cholecystokinin (0.02 ug/kg) was administered intravenously over a 30-minute period. The post CCK gallbladder ejection fraction calculated at 20 minutes following Cholecystokinin administration was noted to be 67.0. % (normal greater than 35%). During 30 minutes of post CCK imaging, there is no scintigraphic evidence of reflux of the radiotracer into the common hepatic duct or refilling of the gallbladder. NM/Hepatobilliary Img w/Pharm Int IMPRESSION: 1. A gallbladder ejection fraction calculated to be greater than 35% following the administration of Cholecystokinin makes the probability of functional hepatobiliary disease (gallbladder and/or sphincter of Oddi dyskinesia) and/or organic hepatobiliary disease (chronic acalculous cholecystitis and/or cystic duct syndrome) to be low. (Dell Manriquez et al, Journal of Nuclear Medicine 32:1695, 1991). 2. There appears to be scintigraphic evidence of transient duodenal gastric reflux. Electronically Signed: Balbir Garcia, at 11:28 EDT ,
--- NOTE | 2022-05-09 10:10 | PCM.PN.HOSP ---
Subjective Subjective Patient with ongoing right upper quadrant pain. He did report that it seems to be worse when he eats spicy food however he is really not had spicy food since he has been here as he has been predominantly n.p.o. versus clear liquid diet/full liquid diet. He indicates he drank some broth yesterday and it caused cramping in his abdomen. He has had 2 small bowel movements but feels like he needs to have further bowel movements. P.o. intake has still been a challenge and patient is generally still not feeling well. Objective Data Objective Data Vital Signs: Vital Signs Temp Pulse Resp BP Pulse Ox O2 Del Method O2 Flow Rate 99.5 F H 100 20 H 136/75 H 94 Nasal Cannula 2 05/09/22 08:09 05/09/22 08:20 05/09/22 08:09 05/09/22 08:09 05/09/22 08:14 05/09/22 08:14 05/09/22 08:14 Oxygen Flow Rate (L/min) 2 Oxygen Delivery Method Nasal Cannula Weight: 64 kg Body Mass Index (BMI) 21.4 Intake & Output: Intake and Output for Last 24 Hours 05/07/22 05/08/22 05/09/22 23:59 23:59 23:59 Intake Total 150.25 / 150.25 1587.25 / 1587.25 50 / 50 Balance 150.25 / 150.25 1587.25 / 1587.25 50 / 50 Medical Nutrition Assessment Dietitian: Malnutrition Criteria Met Start: 05/05/22 16:50 Freq: Status: Active Protocol: Document 05/05/22 16:50 RMA (Rec: 05/05/22 16:50 RMA [id number]) Nutrition Malnutrition Evidence of Malnutrition Exists Yes Malnutrition (severe): Acute Illness/Injury Evidenced By Suboptimal Energy Intake ( Severe),Weight Loss (Severe) Intake Problem Inadequate Oral Intake Etiology related to altered GI function /diarrhea Signs/Symptoms as evidenced by clear liquid diet x day 1 today Status Active Problem Clinical Problem Acute Disease or Injury Related Malnutrition Etiology Severe protein-calorie malnutrition in the context of acute illness related to altered GI function and inadequate oral intake Signs/Symptoms as evidenced by~10% wt loss x past 1-2 months, clear liquid diet and PO meeting less than 50% estimated nutrition needs Status Active Problem Recommendation Dietitian Recommendations/Changes Recommend advance diet as tolerated to full liquids and as tolerated to Transitional diet with goal of Regular/ sodium-restricted diet as able . Will continue 120ml ensure clear 4 times per day w/ medpass for now and transition to ensure plus high protein as diet advanced from clear liquids. Monitor weight closely and optimize intake to prevent further wt loss. Lab / Micro Data Result Diagrams: 05/09/22 06:18 05/09/22 06:18 Labs: Laboratory Results - last 24 hr 05/09/22 06:18: WBC 10.1, RBC 2.88 L, Hgb 8.8 L, Hct 27.4 L, MCV 95.1 H, MCH 30.6, MCHC 32.1, RDW Std Deviation 64.0 H, RDW Coeff of Pablo 18.6 H, Plt Count 270, MPV 10.3, Immature Gran % (Auto) 0.800, Neut % (Auto) 82.1 H, Lymph % (Auto) 5.0 L, [place] % (Auto) 10.8 H, Eos % (Auto) 0.8, Baso % (Auto) 0.5, Absolute Neuts (auto) 8.3 H, Absolute Lymphs (auto) 0.51 L, Nucleated RBC % 0.2, Differential Comment SCANNED 05/09/22 06:18: PT 27.6 H, INR 2.6 05/09/22 06:18: Sodium 139, Potassium 3.3 L, Chloride 108 H, Carbon Dioxide 24.0, Anion Gap 7, BUN 16, Creatinine 1.53 H, Estim Creat Clear Calc 34.86, Est GFR (MDRD) Af Amer 57 L, Est GFR (MDRD) Non-Af 47 L, BUN/Creatinine Ratio 10.5, Glucose 92, Calcium 8.0 L, Phosphorus 2.0 L, Magnesium 1.7 05/09/22 06:18: Total Bilirubin 1.40 H, Direct Bilirubin 0.60 H, AST 56 H, ALT 109 H, Alkaline Phosphatase 43 L, Total Protein 6.1 L, Albumin 2.4 L, Globulin 3.7 Micro: Microbiology 05/04/22 20:09 Urine, Clean Catch Urine Culture - Final Staphylococcus haemolyticus 05/04/22 17:01 Blood Culture (Wb) - Anticubital Right Blood Culture - Preliminary No growth in 48 hours. 05/04/22 16:30 Blood Culture (Wb) - Left Forearm Blood Culture - Preliminary No growth in 48 hours. 05/04/22 21:54 Stool C. difficile DNA Amplification - Final 05/04/22 16:30 Nasal Secretion SARS-CoV-2 & FLU Antigen (Rapid) - Final Radiography Diagnostic Testing: Radiology Impression Abdomen/Pelvis CT 05/08/22 09:09 IMPRESSION: Retained stool throughout the majority of the colon with colonic diverticulosis, particularly in the sigmoid colon. An underlying lesion cannot be excluded, but there is no CT evidence of acute diverticulitis. Subacute healing left inferior pubic ramus fracture Stable renal cysts, no specific follow-up needed. Extensive degenerative bony changes in the lumbar spine and elsewhere in the pelvis. Previous vertebroplasties noted Chronic interstitial changes in both lung bases with pulmonary vessel congestion, stable pleural effusions and atelectasis. Stable cardiomegaly with calcified coronary vessels Electronically Signed: Joe Jennings MD at 10:15 EDT Reading Location ID and State: [facility] / [place] , Service support , Physical Exam Const alert, oriented x3, no apparent distress and average body habitus Constitutional Narrative: Elderly white male lying in bed, appears uncomfortable but less so than yesterday, affect is very flat, nursing at the bedside HEENT head/scalp atraumatic and moist oral mucous membranes HEENT Narrative: Mallampati 2, mucous membranes are moist Head and Scalp: normocephalic Resp normal respiratory effort, no retractions, no use of accessory muscles and clear to auscultation bilaterally Auscultation: Negative for crackles, rales, rhonchi or wheezes Cardio regular rate, S1 normal heart sound, S2 normal heart sound, no murmurs, no rub, no gallops, no clicks and no JVD Cardio Narrative: Atrial fibrillation with controlled rate GI normal to inspection, nondistended, normoactive bowel sounds and soft to palpation GI Narrative: Tender right upper quadrant Palpation: tender RUQ and Hernández's sign Extremity no clubbing, cyanosis or edema Extremity Narrative: 2+ pedal pulses Neuro oriented x3, CN's II-XII intact bilaterally, moves all extremities and no focal motor deficits Speech: speech normal Assessment & Plan Assessment/Plan (1) Colitis: (2) Generalized weakness: (3) Hypokalemia: (4) Hypophosphatemia: (5) Constipation: (6) Right upper quadrant pain: (7) Nausea and vomiting: PLAN: Plan Acute colitis -This seems to be resolved -No further diarrhea -Continue Zosyn and will plan to discharge with coverage for 7 to 10 days of total treatment -We will refer to outpatient GI for colonoscopy upon discharge Right upper quadrant pain/nausea/vomiting -Concerning for gallbladder abnormalities -LFTs remain slightly elevated with an elevated bilirubin--> stable at 1.4 -Lipase was unremarkable -CT of the abdomen pelvis showed no further colitis, retained stool throughout the majority of the colon with colonic diverticulosis but no diverticulitis, subacute healing fracture of the inferior pubic ramus stable renal cysts, and chronic interstitial changes at bilateral lung bases -Right upper quadrant ultrasound showed a distended gallbladder but no stones or pericholecystic fluid -HIDA scan in a.m. -Continue clear liquid diet -Continue IV fluids with LR at 60 cc/h -Hold Coumadin until HIDA scan results -Continue antiemetics and medication for pain Hypokalemia/hypophosphatemia -IV K-Phos replacement ordered -Repeat lab in a.m. 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 -FE has resolved -Baseline serum creatinine is 1.75-2.35 -Serum creatinine currently 1.53 -Continue IV fluids for now as oral intake has remained poor -Continue to monitor renal function Debility/generalized weakness -PT has not recommended any further therapy -OT has recommended some continued therapy and he indicated he be agreeable for outpatient occupational therapy -Hopefully will be able to discharge home tomorrow with referral for outpatient occupational therapy at discharge Thoracic aortic aneurysm -Being followed by cardiology -Most recent CT from November 2021 showed a stable 4 cm ascending thoracic aortic aneurysm -Continue medical therapy CAD -PCI with BMS to proximal LAD 07/2000 -Continue medical therapy with metoprolol -No aspirin secondary to previous GI bleed and chronic anemia -Patient no longer on statin per cardiology documentation PAF -Patient currently appears to be in a flutter/fib -Continue amiodarone -Continue metoprolol -Continue Cardizem -Continue to hold warfarin again today until HIDA scan can evaluate gallbladder in case patient needs surgical intervention -INR is therapeutic at 2.6 -Patient with recent event monitor for 30 days in November showing PVCs periodically, intermittent A. fib, and some SV ectopy HFpEF -Compensated -Continue medical therapy Hyperlipidemia -Patient utilizing lifestyle modifications and not on chronic statin therapy Hypothyroidism -TSH was mildly elevated at 4.62 with a free T4 of 1.76 -Suspect euthyroid sick and recommend follow-up in 6 weeks -Continue home levothyroxine GERD with history of GI bleed -We will switch to twice daily IV Protonix while patient n.p.o. BPH -Continue Flomax Chronic anemia -Counts appear stable -Patient with history of GI bleed -Continue to monitor Hypertension -Continue home occasions diltiazem/metoprolol/hydralazine/isosorbide mononitrate DVT prophylaxis -Patient fully anticoagulated with therapeutic INR--> 2.6 -Continue to monitor as we are holding Coumadin at this time in case gallbladder issues are identified CODE STATUS -Full code Charges/Coding Visit Charges Inpatient E&M: 70006 Subs Hosp L2
[2022-05-09] MEDS: Dicyclomine 10 MG Capsule PO ×2 (11:11→16:48)
[2022-05-09] MEDS: Lactated Ringers 1,000 ML 75 ML IV ×2 (11:16→23:30)
[2022-05-09] MEDS: Ensure Clear 120 ML Liquid PO ×2 (16:49→20:24)
[2022-05-09] MEDS: Acetaminophen 325 MG Tablet 650 MG PO (20:24)
[2022-05-10] VITALS (14 sets, daily range): BP systolic 131–144; BP diastolic 74–97; PULSE 82–107; RESP 16–18; TEMP 36.6–36.7; O2SAT 92–97
[2022-05-10 05:54] LABS: International Normalized Ratio 2.7
[2022-05-10 06:18] LABS: ALB/GLOB Ratio 0.6 RATIO (0.9-2.4); AST(SGOT) 59 U/L (15-37); Alanine Aminotransfer ALT/SGPT 104 U/L (16-61); Albumin, Serum 2.3 g/dL (3.2-5.0); Alkaline Phosphatase 43 U/L (45-117); Anion Gap 9 (5-15); BUN 17 mg/dL (7-18); BUN/Creat Ratio 10.8 RATIO (10-20); Calcium,Total 7.8 mg/dL (8.5-10.1); Chloride 107 mmol/L (98-107); Creatinine, Serum 1.57 mg/dL (0.70-1.30); EST Glomerular Filtration Rate 45 mL/min (>60); Est Glom Filt Rate - Afr Amer 55 mL/min (>60); Estimated Creatinine Clearance 33.97 ml/min; Globulin 3.6 g/dL (2.2-4.2); Glucose 90 mg/dL (74-106); Phosphorus 2.5 mg/dL (2.5-4.9); Potassium 3.2 mmol/L (3.5-5.1); Protein, Total 5.9 g/dL (6.4-8.2); Sodium Level 139 mmol/L (136-145)
[2022-05-10] MEDS: Ondansetron 4 MG/2 ML Vial IV ×2 (06:38→14:20)
[2022-05-10] MEDS: Iron Polysaccharide Complex 150 MG CAPSULE PO (09:53)
[2022-05-10] MEDS: dilTIAZem CD 120 MG Capsule PO (09:53)
[2022-05-10] MEDS: Amiodarone 200 MG Tablet 100 MG PO ×2 (09:53→15:58)
[2022-05-10] MEDS: Isosorbide Mononitrate 30 MG Tablet PO (09:54)
[2022-05-10] MEDS: Metoprolol Tartrate 25 MG Tablet 12.5 MG PO ×2 (09:54→21:46)
[2022-05-10] MEDS: Dicyclomine 10 MG Capsule PO ×3 (09:54→15:59)
[2022-05-10] MEDS: Vitamin B Comp W-C Capsule 1 CAP PO ×2 (09:54→21:46)
[2022-05-10] MEDS: Finasteride 5 MG Tablet PO (09:54)
[2022-05-10] MEDS: hydrALAZINE 25 MG Tablet 12.5 MG PO ×2 (12:22→21:46)
[2022-05-10] MEDS: Baclofen 10 MG Tablet 5 MG PO (14:19)
[2022-05-10] MEDS: Lactated Ringers 1,000 ML 75 ML IV (14:25)
--- NOTE | 2022-05-10 15:33 | PN.HOSP_ITS ---
Subjective Subjective Doing well, no issues overnight. Over the weekend he was complaining of a little bit of a right upper quadrant abdominal pain so a HIDA scan was obtained today which was negative Objective Data Objective Data Vital Signs: Vital Signs Temp Pulse Resp BP Pulse Ox O2 Del Method O2 Flow Rate 97.9 F 97 16 133/77 H 96 Room Air 2 05/10/22 09:30 05/10/22 12:22 05/10/22 09:30 05/10/22 09:30 05/10/22 09:30 05/10/22 09:30 05/09/22 08:14 Oxygen Flow Rate (L/min) 2 Oxygen Delivery Method Room Air Weight: 141 lb 1.533 oz Body Mass Index (BMI) 21.4 Intake & Output: Intake and Output for Last 24 Hours 05/09/22 05/10/22 05/11/22 03:59 03:59 03:59 Intake Total 1587.25 / 1587.25 3125.0 / 3125.0 1056.25 / 1056.25 Output Total 300 / 300 400 / 400 Balance 1587.25 / 1587.25 2825.0 / 2825.0 656.25 / 656.25 Medical Nutrition Assessment Dietitian: Malnutrition Criteria Met Start: 05/05/22 16:50 Freq: Status: Active Protocol: Document 05/05/22 16:50 RMA (Rec: 05/05/22 16:50 RMA [id number]) Nutrition Malnutrition Evidence of Malnutrition Exists Yes Malnutrition (severe): Acute Illness/Injury Evidenced By Suboptimal Energy Intake ( Severe),Weight Loss (Severe) Intake Problem Inadequate Oral Intake Etiology related to altered GI function /diarrhea Signs/Symptoms as evidenced by clear liquid diet x day 1 today Status Active Problem Clinical Problem Acute Disease or Injury Related Malnutrition Etiology Severe protein-calorie malnutrition in the context of acute illness related to altered GI function and inadequate oral intake Signs/Symptoms as evidenced by~10% wt loss x past 1-2 months, clear liquid diet and PO meeting less than 50% estimated nutrition needs Status Active Problem Recommendation Dietitian Recommendations/Changes Recommend advance diet as tolerated to full liquids and as tolerated to Transitional diet with goal of Regular/ sodium-restricted diet as able . Will continue 120ml ensure clear 4 times per day w/ medpass for now and transition to ensure plus high protein as diet advanced from clear liquids. Monitor weight closely and optimize intake to prevent further wt loss. Lab / Micro Data Result Diagrams: 05/09/22 06:18 05/10/22 04:20 Labs: Laboratory Results - last 24 hr 05/10/22 04:20: Sodium 139, Potassium 3.2 L, Chloride 107, Carbon Dioxide 23.0, Anion Gap 9, BUN 17, Creatinine 1.57 H, Estim Creat Clear Calc 33.97, Est GFR (MDRD) Af Amer 55 L, Est GFR (MDRD) Non-Af 45 L, BUN/Creatinine Ratio 10.8, Glucose 90, Calcium 7.8 L, Phosphorus 2.5, Total Bilirubin 1.30 H, AST 59 H, ALT 104 H, Alkaline Phosphatase 43 L, Total Protein 5.9 L, Albumin 2.3 L, Globulin 3.6, Albumin/Globulin Ratio 0.6 L 05/10/22 04:20: PT 28.0 H, INR 2.7 Micro: Microbiology 05/04/22 16:30 Blood Culture (Wb) - Left Forearm Blood Culture - Final No growth in 5 days. 05/04/22 17:01 Blood Culture (Wb) - Anticubital Right Blood Culture - Final No growth in 5 days. 05/04/22 20:09 Urine, Clean Catch Urine Culture - Final Staphylococcus haemolyticus 05/04/22 21:54 Stool C. difficile DNA Amplification - Final 05/04/22 16:30 Nasal Secretion SARS-CoV-2 & FLU Antigen (Rapid) - Final Radiography Diagnostic Testing: Radiology Impression Hepatobiliary Scan Nuclear Medicine 05/09/22 10:10 IMPRESSION: 1. A gallbladder ejection fraction calculated to be greater than 35% following the administration of Cholecystokinin makes the probability of functional hepatobiliary disease (gallbladder and/or sphincter of Oddi dyskinesia) and/or organic hepatobiliary disease (chronic acalculous cholecystitis and/or cystic duct syndrome) to be low. (Dell Manriquez et al, Journal of Nuclear Medicine 32:1695, 1991). 2. There appears to be scintigraphic evidence of transient duodenal gastric reflux. Electronically Signed: Balbir Garcia, at 11:28 EDT , Physical Exam Narrative General: Alert, Oriented x3, Cooperative, No apparent distress HEENT: Atraumatic, PERRLA, EOMI, Normocephalic Oral: Moist mucosa Neck: Supple, No JVD Lungs: Clear to auscultation, Normal air movement, No rhonchi, No wheeze, No rales Cardiovascular: Regular rate, Regular Rhythm, Normal S1, Normal S2, No murmurs Abdomen: Soft, mild tender pubis, Non-Distended, No Hepato-splenomegaly Extremities: No edema, Capillary Refill Less than 3 Seconds Skin: No rashes, No breakdown Musculoskeletal: No Tenderness to Palpation of Joints or Extremities Neurological: Cranial nerves II-XII grossly intact, Motor Exam 5/5 strength t hroughout, Sensory exam intact to light touch and pain Psych/Mental Status: Normal Affect, Appropriate Assessment & Plan Assessment/Plan (1) Colitis: (2) Generalized weakness: (3) Hypokalemia: (4) Hypophosphatemia: (5) Constipation: (6) Right upper quadrant pain: (7) Nausea and vomiting: PLAN: Plan 1.? 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 Continue with clear liquid and advance as tolerated ? Continue with Zosyn ? Continue with IV fluids ? PT/OT, will consult case management for discharge planning ? Renal function is improving, baseline creatinine is 2.2 ? CT scan of the abdomen over the weekend demonstrated resolved colitis but no right upper quadrant issues. HIDA scan was normal today. Discussed with him that he can likely go home tomorrow as he is tolerating liquids 2.? A. fib/CAD status post stent/HTN/HLD/chronic diastolic CHF ? Given his FE, will hold his Lasix ? EF of 60% on his echo in December 2020 ? Can resume his home Imdur as well as amiodarone and metoprolol ? Continue with Coumadin 3.? Hypothyroidism ? Stable ? Continue with Synthroid 4.? BPH ? Stable ? Continue with Flomax DVT: Coumadin Charges/Coding Visit Charges Inpatient E&M: 38048 Subs Hosp L2
[2022-05-10] MEDS: Potassium Chloride 10mEq/100mL 10 MEQ/100 ML IV.SOLN. 100 MEQ IV BOLUS ×4 (16:57→20:29)
[2022-05-10] MEDS: Ensure Clear 120 ML Liquid PO (21:45)
[2022-05-11] VITALS (9 sets, daily range): BP systolic 130–144; BP diastolic 85–97; PULSE 87–106; RESP 16–18; TEMP 36.6–36.9; O2SAT 92–94
[2022-05-11] MEDS: Ondansetron 4 MG/2 ML Vial IV ×2 (03:19→11:34)
[2022-05-11] MEDS: 0.9% Saline Lock 10 ML Syringe IV ×2 (03:20→11:36)
[2022-05-11 06:11] LABS: Absolute Lymphocyte Count 0.63 X10^3/uL (0.83-4.51); Absolute Neutrophil Count 8.8 X10^3/uL (2.0-7.7); Basophil# 0.04 X10^3/uL; Basophil% 0.4 % (0-1); Eosinophil# 0.12 X10^3/uL; Eosinophils% 1.1 % (0-5); Hematocrit 25.6 % (40-54); Hemoglobin 8.6 g/dL (13.0-16.5); Lymphocyte # 0.63 X10^3/ul (0.83-4.51); Lymphocyte % 5.9 % (19-41); Mean Corp Hgb Conc 33.6 g/dL (32-36); Mean Corpuscular Hgb 31.9 pg (27.0-32.0); Mean Corpuscular Volume 94.8 fL (80-94); Monocyte# 0.97 X10^3/uL; Monocyte% 9.2 % (0-10); NRBC Flagged by Analyzer 0.4 % (0-5); Neutrophil # 8.77 X10^3/uL (2.7-7.7); Neutrophil % 82.7 % (47-70); Platelet Count 283 K/mm3 (150-450); RBC Distribution Width CV 19.6 % (11.6-14.6); RBC Distribution Width SD 64.5 fl (35.1-43.9); White Blood Count 10.6 K/mm3 (4.4-11.0)
[2022-05-11 06:19] LABS: International Normalized Ratio 2.3; Prothrombin Time (Protime)PT. 25.3 SECONDS (11.7-14.9)
[2022-05-11] MEDS: hydrALAZINE 25 MG Tablet 12.5 MG PO (06:37)
[2022-05-11] MEDS: Lactated Ringers 1,000 ML 75 ML IV (06:37)
[2022-05-11] MEDS: Levothyroxine 25 MCG TABLET PO (06:38)
[2022-05-11] MEDS: Dicyclomine 10 MG Capsule PO ×2 (06:39→11:35)
[2022-05-11 06:52] LABS: Anion Gap 10 (5-15); BUN 15 mg/dL (7-18); BUN/Creat Ratio 9.3 RATIO (10-20); Calcium,Total 7.9 mg/dL (8.5-10.1); Chloride 107 mmol/L (98-107); Creatinine, Serum 1.62 mg/dL (0.70-1.30); EST Glomerular Filtration Rate 44 mL/min (>60); Est Glom Filt Rate - Afr Amer 53 mL/min (>60); Estimated Creatinine Clearance 32.92 ml/min; Glucose 99 mg/dL (74-106); Potassium 3.5 mmol/L (3.5-5.1); Sodium Level 139 mmol/L (136-145)
[2022-05-11] MEDS: Iron Polysaccharide Complex 150 MG CAPSULE PO (08:49)
[2022-05-11] MEDS: dilTIAZem CD 120 MG Capsule PO (08:50)
[2022-05-11] MEDS: Finasteride 5 MG Tablet PO (08:50)
[2022-05-11] MEDS: Metoprolol Tartrate 25 MG Tablet 12.5 MG PO (08:50)
[2022-05-11] MEDS: Amiodarone 200 MG Tablet 100 MG PO (08:50)
[2022-05-11] MEDS: Vitamin B Comp W-C Capsule 1 CAP PO (08:50)
[2022-05-11] MEDS: Isosorbide Mononitrate 30 MG Tablet PO (08:51)
--- NOTE | 2022-05-11 12:00 | DCINST_ITS ---
Discharge Instructions Diet Discharge Diet: Low fat / Low cholesterol and 6 Cup Fluid Restriction Activity Discharge Activity: Return to Normal Activity Dressing / Incision Call your doctor if you observe: Fever of 101 or Higher, Shortness of breath, Dizziness, Fainting spells, Swelling in the ankles, Chest pain and Increased palpitations (irregular heartbeat) Follow Up Care Test Results: Test results from this visit will be discussed in further detail at your follow- up appointment, if applicable. Discharge Plan Admission Admit Date/Time: 05/04/22 21:59 Attending Provider: Mehrdad Eagle Primary Care Provider: César Chinchilla Consulting Providers: Adeal Farley ; Mehrdad Eagle ; Leilani Stone Instructions Additional Instructions / Restrictions: Up with your PCP in 3 to 5 days for outpatient labs including a BMP and a CBC to monitor any anemia and renal function. Discharge Orders/Prescriptions Prescriptions: New amoxicillin-pot clavulanate 875-125 mg tablet 1 tab PO BID 3 Days Qty: 6 0RF ondansetron 4 mg tablet,disintegrating 4 mg PO Q8H PRN (Reason: nausea and vomiting) Qty: 14 0RF Continued finasteride [Proscar] 5 mg tablet 5 mg PO DAILY warfarin 4 mg tablet 4 mg PO KAREN Protocol: Dose Management Condition: Tuesday Dose/Route: 2 mg Instruction: 1 x 2 mg tablet Condition: Tuesday Dose/Route: 4 mg Instruction: 1 x 4 mg tablet Condition: Tuesday Dose/Route: 4 mg Instruction: 1 x 4 mg tablet Condition: Tuesday Dose/Route: 2 mg Instruction: 1 x 2 mg tablet Condition: Dose/Route: 2 mg Instruction: 1 x 2 mg tablet Condition: Tuesday Dose/Route: 4 mg Instruction: 1 x 4 mg tablet Condition: Tuesday Dose/Route: 4 mg Instruction: 1 x 4 mg tablet Protocol Text: Adjustment Start Date: Tuesday04/16/22 INR Value: 2.7 INR Date: 04/16/22 Recheck Date: 04/30/22 tamsulosin 0.4 mg capsule 0.4 mg PO QHS lidocaine 5 % adhesive patch,medicated 1 patch topical DAILY PRN (Reason: pain) Rx Instructions: leave on most painful area for up to 12 hrs levothyroxine 25 mcg tablet 25 mcg PO DAILY Label Comments: take 1 tablet by mouth once daily Prolia 60 MG/ML syringe 60 mg SQ .[id number] ipratropium bromide 21 mcg (0.03 %) [place],Non-Aerosol 2 spray INTRANASAL PRN PRN (Reason: SOB) Osteo Bi-Flex Triple Strength 750 mg-644 mg- 30 mg-1 mg Tablet 2 tab PO DAILY warfarin 2 mg tablet 2 mg PO FR Protocol: Dose Management Condition: Tuesday Dose/Route: 2 mg Instruction: 1 x 2 mg tablet Condition: Tuesday Dose/Route: 4 mg Instruction: 1 x 4 mg tablet Condition: Tuesday Dose/Route: 4 mg Instruction: 1 x 4 mg tablet Condition: Tuesday Dose/Route: 2 mg Instruction: 1 x 2 mg tablet Condition: Dose/Route: 2 mg Instruction: 1 x 2 mg tablet Condition: Tuesday Dose/Route: 4 mg Instruction: 1 x 4 mg tablet Condition: Tuesday Dose/Route: 4 mg Instruction: 1 x 4 mg tablet Protocol Text: Adjustment Start Date: Tuesday04/16/22 INR Value: 2.7 INR Date: 04/16/22 Recheck Date: 04/30/22 diltiazem HCl 120 mg capsule,extended release 24hr 120 mg PO DAILY isosorbide mononitrate 30 mg Tablet Extended Release 24 Hr 30 mg PO DAILY hydralazine 25 mg Tablet 12.5 mg PO TID pantoprazole 40 mg Tablet,Delayed Release (Dr/Ec) 40 mg PO DAILY bisacodyl [Dulcolax (bisacodyl)] 5 mg Tablet,Delayed Release (Dr/Ec) 5 mg PO QHS bisacodyl [Dulcolax (bisacodyl)] 5 mg Tablet,Delayed Release (Dr/Ec) 5 mg PO PRN PRN (Reason: Constipation) polysaccharide iron complex 50 mg iron Tablet 50 mg PO DAILY vitamin B complex Capsule 1 cap PO BID beta carotene 25,000 unit Tablet 25,000 unit PO DAILY Rx Instructions: administer with a meal coenzyme Q10 [Co Q-10] 100 mg Capsule 100 mg PO DAILY amiodarone 100 mg Tablet 100 mg PO BID baclofen 5 mg Tablet 5 mg PO TID PRN (Reason: muscle spasms) metoprolol tartrate 25 mg tablet 12.5 mg PO BID nitroglycerin 0.4 mg tablet, sublingual See Rx Instructions .ROUTE .COMPLEX Qty: 25 3RF Dose Instruction: PLACE 1 TABLET UNDER TONGUE EVERY 5 TO 15 MINUTES NEEDED FOR CHEST PAIN UNTIL RESPONSE. DO NOT EXCEED 3 DOSES PER EPISODE Rx Instructions: PLACE 1 TABLET UNDER TONGUE EVERY 5 TO 15 MINUTES NEEDED FOR CHEST PAIN UNTIL RESPONSE. DO NOT EXCEED 3 DOSES PER EPISODE Discontinued amoxicillin 875 mg Tablet 875 mg PO BID Referrals / Follow Up: César Chinchilla MD [Primary Care Provider] - Mika Hodges DO [Med Staff - Active Staff] - Within 1 Month (for colonoscopy) Disposition Disposition (needs filled in before D/C Order can be placed): Home, Self Care
--- NOTE | 2022-05-11 13:24 | CASEMGMT ---
RADHA PORTER provided pt with signed rx for PT and OT, pt will set up on own. Pt has called [facility] for transportation home. Pt denies further homegoing needs.
--- NOTE | 2022-05-11 14:27 | PCM.DC.SUM ---
Providers Date of Admission: 05/04/22 Date of Discharge: 05/11/22 Primary Care Physician: Dr. César Chinchilla MD Reason For Visit: DEBILITY, COLITIS Diagnosis Discharge Diagnosis (1) Colitis: Status: Resolved Code(s): K52.9 - Noninfective gastroenteritis and colitis, unspecified (2) Generalized weakness: Status: Acute Code(s): R53.1 - Weakness (3) Hypokalemia: Status: Acute Code(s): E87.6 - Hypokalemia (4) Hypophosphatemia: Status: Acute Code(s): E83.39 - Other disorders of phosphorus metabolism (5) Constipation: Status: Acute Code(s): K59.00 - Constipation, unspecified (6) Right upper quadrant pain: Status: Acute Code(s): R10.11 - Right upper quadrant pain (7) Nausea and vomiting: Status: Acute Code(s): R11.2 - Nausea with vomiting, unspecified Plan 1.? 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 Continue with clear liquid and advance as tolerated ? Continue with Zosyn ? Continue with IV fluids ? PT/OT, will consult case management for discharge planning ? Renal function is improving, baseline creatinine is 2.2 ? CT scan of the abdomen over the weekend demonstrated resolved colitis but no right upper quadrant issues. HIDA scan was normal today. Discussed with him that he can likely go home tomorrow as he is tolerating liquids 2.? A. fib/CAD status post stent/HTN/HLD/chronic diastolic CHF ? Given his FE, will hold his Lasix ? EF of 60% on his echo in December 2020 ? Can resume his home Imdur as well as amiodarone and metoprolol ? Continue with Coumadin 3.? Hypothyroidism ? Stable ? Continue with Synthroid 4.? BPH ? Stable ? Continue with Flomax DVT: Coumadin Medications at Discharge Home Medications finasteride 5 mg tablet (Proscar) 5 mg PO DAILY prostate 06/03/20 denosumab 60 mg/mL subcutaneous syringe (Prolia) 60 mg SQ .[id number] BONES 12/09/20 glucosamine 750 md-[id number]-[id number] no1 644 mg-C 30 mg-pamela 1 mg tablet (Osteo Bi-Flex Triple Strength) 2 tab PO DAILY bone health 05/06/21 ipratropium bromide 21 mcg (0.03 %) nasal spray 2 spray intranasal PRN PRN SOB 05/06/21 tamsulosin 0.4 mg capsule 0.4 mg PO QHS bladder 11/18/21 warfarin 2 mg tablet 2 mg PO FR blood thinner 11/18/21 warfarin 4 mg tablet 4 mg PO SUMOTUWETHSA BLOOD THINNER 11/18/21 diltiazem HCl 120 mg capsule,extended release 24 hr 120 mg PO DAILY heart 01/07/22 nitroglycerin 0.4 mg sublingual tablet See Rx Instructions .Route .COMPLEX #25 TABLETS 02/02/22 levothyroxine 25 mcg tablet 25 mcg PO DAILY 02/17/22 lidocaine 5 % topical patch 1 patch topical DAILY PRN pain 02/17/22 amiodarone 100 mg tablet 100 mg PO BID 05/01/22 baclofen 5 mg tablet 5 mg PO TID PRN muscle spasms 05/01/22 beta carotene 25,000 unit tablet 25,000 unit PO DAILY 05/01/22 bisacodyl 5 mg tablet,delayed release (Dulcolax (bisacodyl)) 5 mg PO PRN PRN Constipation 05/01/22 bisacodyl 5 mg tablet,delayed release (Dulcolax (bisacodyl)) 5 mg PO QHS 05/01/22 coenzyme Q10 100 mg capsule (Co Q-10) 100 mg PO DAILY 05/01/22 hydralazine 25 mg tablet 12.5 mg PO TID 05/01/22 isosorbide mononitrate 30 mg tablet,extended release 24 hr 30 mg PO DAILY 05/01/22 metoprolol tartrate 25 mg tablet 12.5 mg PO BID 05/01/22 pantoprazole 40 mg tablet,delayed release 40 mg PO DAILY 05/01/22 polysaccharide iron complex 50 mg iron tablet 50 mg PO DAILY 05/01/22 vitamin B complex 1 cap PO BID 05/01/22 amoxicillin 875 mg-potassium clavulanate 125 mg tablet 1 tab PO BID 3 days #6 tabs 05/11/22 ondansetron 4 mg disintegrating tablet 4 mg PO Q8H PRN nausea and vomiting #14 tabs 05/11/22 Hospital Course Operations None Procedures - (HIDA scan) Summary of Care Provided Minutes Spent on Discharge: 40 Hospital Course: Per HPI: RICHIE HANSEN, is a 81 M with a PMH as outlined who presents via the ED on 05/04/2022 with a complaint of weakness. HE was initially brought in with a complaint of constipation, but it transpired that he actually had diarrhea. He was seen in the hospital a few days ago for chest pressure and was discharged home. However, he has been feeling weak since then, and not eating or drinking well, and unable to take care of himself at home. HE called the EMS today because he felt very weak. He denied any fever, chills, nausea, vomiting and admitted to diarrhea. He denied any urinary symptoms and review of systems was otherwise negative. VItals were BP of 116/73, LA of 96, RR of 21 and he was saturating at 97% on 2L of oxygen. CBC showed hb of 12.4, wbc of 10.8 and platelets of 487. Chemistry showed sodium of 139 and potassium of 3.1 as well as Cr of 3.04. AST/ALT were elevated at 180/245. TSH was 4.2. Urinalysis showed 0-5wbc and bacteria 1+. CT abdomen and pelvis showed diffuse ileus and no evidence of small bowel obstruction as well as evidence of acute colitis of the distal descending and sigmoid colon. He is being admitted to be managed for debility as well as acute colitis and diarrhea. Hospital Course: 1.? 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 Continue with clear liquid and advance as tolerated ? Continue with Zosyn ? Continue with IV fluids ? PT/OT, will consult case management for discharge planning ? Renal function is improving, baseline creatinine is 2.2 ? CT scan of the abdomen over the weekend demonstrated resolved colitis but no right upper quadrant issues.? HIDA scan was normal today. ? I discussed with him the plan for discharge today he expressed understanding of the risk benefits going home and would like to go home today. He is a bit reticent because of diarrhea but I did tell him that the antibiotics that he is on can cause diarrhea and also that the CT scan that he had during his admission demonstrated that his colitis had resolved. I do recommend that he follow-up with his PCP in 3 to 5days and that he can also follow-up with gastroenterology as an outpatient as well. Will complete antibiotic course with 3 more days of Augmentin, I discussed with him that this will cause diarrhea and potential some GI upset which is expected. 2.? A. fib/CAD status post stent/HTN/HLD/chronic diastolic CHF ? Given his FE, will hold his Lasix ? EF of 60% on his echo in December 2020 ? Can resume his home Imdur as well as amiodarone and metoprolol ? Continue with Coumadin 3.? Hypothyroidism ? Stable ? Continue with Synthroid 4.? BPH ? Stable ? Continue with Flomax Physical Exam Narrative General: Alert, Oriented x3, Cooperative, No apparent distress HEENT: Atraumatic, PERRLA, EOMI, Normocephalic Oral: Moist mucosa Neck: Supple, No JVD Lungs: Clear to auscultation, Normal air movement, No rhonchi, No wheeze, No rales Cardiovascular: Regular rate, Regular Rhythm, Normal S1, Normal S2, No murmurs Abdomen: Soft, mild tender pubis, Non-Distended, No Hepato-splenomegaly Extremities: No edema, Capillary Refill Less than 3 Seconds Skin: No rashes, No breakdown Musculoskeletal: No Tenderness to Palpation of Joints or Extremities Neurological: Cranial nerves II-XII grossly intact, Motor Exam 5/5 strength throughout, Sensory exam intact to light touch and pain Psych/Mental Status: Normal Affect, Appropriate Medical Records Data Medical Nutrition Assessment Dietitian: Malnutrition Criteria Met Start: 05/05/22 16:50 Freq: Status: Active Protocol: Document 05/05/22 16:50 RMA (Rec: 05/05/22 16:50 RMA [id number]) Nutrition Malnutrition Evidence of Malnutrition Exists Yes Malnutrition (severe): Acute Illness/Injury Evidenced By Suboptimal Energy Intake ( Severe),Weight Loss (Severe) Intake Problem Inadequate Oral Intake Etiology related to altered GI function /diarrhea Signs/Symptoms as evidenced by clear liquid diet x day 1 today Status Active Problem Clinical Problem Acute Disease or Injury Related Malnutrition Etiology Severe protein-calorie malnutrition in the context of acute illness related to altered GI function and inadequate oral intake Signs/Symptoms as evidenced by~10% wt loss x past 1-2 months, clear liquid diet and PO meeting less than 50% estimated nutrition needs Status Active Problem Recommendation Dietitian Recommendations/Changes Recommend advance diet as tolerated to full liquids and as tolerated to Transitional diet with goal of Regular/ sodium-restricted diet as able . Will continue 120ml ensure clear 4 times per day w/ medpass for now and transition to ensure plus high protein as diet advanced from clear liquids. Monitor weight closely and optimize intake to prevent further wt loss. Weight / BMI Weight Weight: 141 lb 1.533 oz Body Mass Index (BMI) 21.4 ABG / Lab / Microbiology Data Result Diagrams: 05/11/22 05:42 05/11/22 05:42 Laboratory: Laboratory Results - last 24 hr 05/11/22 05:42: PT 25.3 H, INR 2.3 05/11/22 05:42: WBC 10.6, RBC 2.70 L, Hgb 8.6 L, Hct 25.6 L, MCV 94.8 H, MCH 31.9, MCHC 33.6, RDW Std Deviation 64.5 H, RDW Coeff of Pablo 19.6 H, Plt Count 283, MPV 10.0, Immature Gran % (Auto) 0.700, Neut % (Auto) 82.7 H, Lymph % (Auto) 5.9 L, Falls % (Auto) 9.2, Eos % (Auto) 1.1, Baso % (Auto) 0.4, Absolute Neuts (auto) 8.8 H, Absolute Lymphs (auto) 0.63 L, Nucleated RBC % 0.4 05/11/22 05:42: Sodium 139, Potassium 3.5, Chloride 107, Carbon Dioxide 22.0, Anion Gap 10, BUN 15, Creatinine 1.62 H, Estim Creat Clear Calc 32.92, Est GFR (MDRD) Af Amer 53 L, Est GFR (MDRD) Non-Af 44 L, BUN/Creatinine Ratio 9.3 L, Glucose 99, Calcium 7.9 L Microbiology: Microbiology 05/04/22 16:30 Blood Culture (Wb) - Left Forearm Blood Culture - Final No growth in 5 days. 05/04/22 17:01 Blood Culture (Wb) - Anticubital Right Blood Culture - Final No growth in 5 days. 05/04/22 20:09 Urine, Clean Catch Urine Culture - Final Staphylococcus haemolyticus 05/04/22 21:54 Stool C. difficile DNA Amplification - Final 05/04/22 16:30 Nasal Secretion SARS-CoV-2 & FLU Antigen (Rapid) - Final D/C Instructions Discharge Diet: Low fat / Low cholesterol and 6 Cup Fluid Restriction Call your doctor if you observe: Fever of 101 or Higher, Shortness of breath, Dizziness, Fainting spells, Swelling in the ankles, Chest pain and Increased palpitations (irregular heartbeat) Meaningful Use Info Meaningful Use Diagnoses (Choose all that apply): None applicable Discharge Plan Admission Admit Date/Time: 05/04/22 21:59 Attending Provider: Mehrdad Eagle Primary Care Provider: César Chinchilla Consulting Providers: Adela Farley ; Mehrdad Eagle ; Leilani Stone Instructions Additional Instructions / Restrictions: Up with your PCP in 3 to 5 days for outpatient labs including a BMP and a CBC to monitor any anemia and renal function.Follow-up with your PCP as well to obtain outpatient INR as antibiotics can augment the effects of Coumadin. Discharge Orders/Prescriptions Prescriptions: New amoxicillin-pot clavulanate 875-125 mg tablet 1 tab PO BID 3 Days Qty: 6 0RF ondansetron 4 mg tablet,disintegrating 4 mg PO Q8H PRN (Reason: nausea and vomiting) Qty: 14 0RF Continued finasteride [Proscar] 5 mg tablet 5 mg PO DAILY warfarin 4 mg tablet 4 mg PO [id number] Protocol: Dose Management Condition: Tuesday Dose/Route: 2 mg Instruction: 1 x 2 mg tablet Condition: Tuesday Dose/Route: 4 mg Instruction: 1 x 4 mg tablet Condition: Tuesday Dose/Route: 4 mg Instruction: 1 x 4 mg tablet Condition: Tuesday Dose/Route: 2 mg Instruction: 1 x 2 mg tablet Condition: Dose/Route: 2 mg Instruction: 1 x 2 mg tablet Condition: Tuesday Dose/Route: 4 mg Instruction: 1 x 4 mg tablet Condition: Tuesday Dose/Route: 4 mg Instruction: 1 x 4 mg tablet Protocol Text: Adjustment Start Date: Tuesday04/16/22 INR Value: 2.7 INR Date: 04/16/22 Recheck Date: 04/30/22 tamsulosin 0.4 mg capsule 0.4 mg PO QHS lidocaine 5 % adhesive patch,medicated 1 patch topical DAILY PRN (Reason: pain) Rx Instructions: leave on most painful area for up to 12 hrs levothyroxine 25 mcg tablet 25 mcg PO DAILY Label Comments: take 1 tablet by mouth once daily Prolia 60 MG/ML syringe 60 mg SQ .[id number] ipratropium bromide 21 mcg (0.03 %) [place],Non-Aerosol 2 spray INTRANASAL PRN PRN (Reason: SOB) Osteo Bi-Flex Triple Strength 750 mg-644 mg- 30 mg-1 mg Tablet 2 tab PO DAILY warfarin 2 mg tablet 2 mg PO FR Protocol: Dose Management Condition: Tuesday Dose/Route: 2 mg Instruction: 1 x 2 mg tablet Condition: Tuesday Dose/Route: 4 mg Instruction: 1 x 4 mg tablet Condition: Tuesday Dose/Route: 4 mg Instruction: 1 x 4 mg tablet Condition: Tuesday Dose/Route: 2 mg Instruction: 1 x 2 mg tablet Condition: Dose/Route: 2 mg Instruction: 1 x 2 mg tablet Condition: Tuesday Dose/Route: 4 mg Instruction: 1 x 4 mg tablet Condition: Tuesday Dose/Route: 4 mg Instruction: 1 x 4 mg tablet Protocol Text: Adjustment Start Date: Tuesday04/16/22 INR Value: 2.7 INR Date: 04/16/22 Recheck Date: 04/30/22 diltiazem HCl 120 mg capsule,extended release 24hr 120 mg PO DAILY isosorbide mononitrate 30 mg Tablet Extended Release 24 Hr 30 mg PO DAILY hydralazine 25 mg Tablet 12.5 mg PO TID pantoprazole 40 mg Tablet,Delayed Release (Dr/Ec) 40 mg PO DAILY bisacodyl [Dulcolax (bisacodyl)] 5 mg Tablet,Delayed Release (Dr/Ec) 5 mg PO QHS bisacodyl [Dulcolax (bisacodyl)] 5 mg Tablet,Delayed Release (Dr/Ec) 5 mg PO PRN PRN (Reason: Constipation) polysaccharide iron complex 50 mg iron Tablet 50 mg PO DAILY vitamin B complex Capsule 1 cap PO BID beta carotene 25,000 unit Tablet 25,000 unit PO DAILY Rx Instructions: administer with a meal coenzyme Q10 [Co Q-10] 100 mg Capsule 100 mg PO DAILY amiodarone 100 mg Tablet 100 mg PO BID baclofen 5 mg Tablet 5 mg PO TID PRN (Reason: muscle spasms) metoprolol tartrate 25 mg tablet 12.5 mg PO BID nitroglycerin 0.4 mg tablet, sublingual See Rx Instructions .ROUTE .COMPLEX Qty: 25 3RF Dose Instruction: PLACE 1 TABLET UNDER TONGUE EVERY 5 TO 15 MINUTES NEEDED FOR CHEST PAIN UNTIL RESPONSE. DO NOT EXCEED 3 DOSES PER EPISODE Rx Instructions: PLACE 1 TABLET UNDER TONGUE EVERY 5 TO 15 MINUTES NEEDED FOR CHEST PAIN UNTIL RESPONSE. DO NOT EXCEED 3 DOSES PER EPISODE Discontinued amoxicillin 875 mg Tablet 875 mg PO BID Referrals / Follow Up: César Chinchilla MD [Primary Care Provider] - FriendMika DO [Med Staff - Active Staff] - 06/18/22 12:15 pm (for colonoscopy) Disposition Disposition (needs filled in before D/C Order can be placed): Home, Self Care Charges/Coding Visit Charges Inpatient E&M: 40547 Disch Hosp
== END 2022-05-11 14:54 | disposition home or self-care (01) | DRG 391 ==
LOC: ED 21:59 → MS3 22:15
PROVIDERS: Internal Medicine; Admitting Provider Student in an Organized Health Care Education/Training Program; Emergency Provider Emergency Medicine; PCP Family Medicine; Visit Provider Family Medicine
DX: K52.9 Noninfective gastroenteritis and colitis, unspecified (principal); E43 Unspecified severe protein-calorie malnutrition; I13.0 Hypertensive heart and chronic kidney disease with heart failure and stage 1 through stage 4 chronic kidney disease, or unspecified chronic kidney disease; N17.9 Acute kidney failure, unspecified; I50.32 Chronic diastolic (congestive) heart failure; K56.7 Ileus, unspecified; E83.39 Other disorders of phosphorus metabolism; I95.9 Hypotension, unspecified; I71.2 Thoracic aortic aneurysm, without rupture; I48.0 Paroxysmal atrial fibrillation; N18.32 Chronic kidney disease, stage 3b; E86.0 Dehydration; I25.10 Atherosclerotic heart disease of native coronary artery without angina pectoris; I25.2 Old myocardial infarction; I34.0 Nonrheumatic mitral (valve) insufficiency; K21.9 Gastro-esophageal reflux disease without esophagitis; E03.9 Hypothyroidism, unspecified; E87.6 Hypokalemia; K57.30 Diverticulosis of large intestine without perforation or abscess without bleeding; Z79.01 Long term (current) use of anticoagulants; Z87.19 Personal history of other diseases of the digestive system; N40.0 Benign prostatic hyperplasia without lower urinary tract symptoms; Z86.010 Personal history of colon polyps; Z87.442 Personal history of urinary calculi; Z79.899 Other long term (current) drug therapy; Z95.5 Presence of coronary angioplasty implant and graft; R62.7 Adult failure to thrive; R53.81 Other malaise; Z68.21 Body mass index [BMI] 21.0-21.9, adult
CPT/HCPCS: 36415; 71045; 74022; 74176; 76705; 78227; 80048; 80053; 80076; 81001; 83605; 83690; 83735; 84100; 84439; 84443; 84484; 85025; 85610; 85730; 87040; 87077; 87086; 87088; 87186; 87428; 87493; 93005; 96374; 96375; 97110; 97162; 97166; 97530; 97535; 97802; 99285; A9537; J7030; J7050; J7120; A4216; J2405; J2805

== ENCOUNTER → 2022-05-17 | Outpatient (CLI) | payer MEDICARE, OTHER, SELFPAY ==
--- NOTE | 2022-05-17 13:43 | RAD_ITS ---
INDICATION: fall EXAMINATION/TECHNIQUE: X-RAY - XR Chest 2 Views COMPARISON: 05/04/2022. FINDINGS: LINES/DEVICES: None. LUNGS: No consolidation, edema or effusion. No pneumothorax. MEDIASTINUM AND CARDIOVASCULAR STRUCTURES: Tortuosity of the thoracic aorta was moderately enlarged cardiomediastinal silhouette demonstrate no significant change in comparison to the prior study. Peribronchial cuffing bilateral hilar prominence demonstrate no change. Fluid levels visualized overlying bilateral costophrenic angles demonstrate prominence/increase in comparison to the prior studies. BONES AND SOFT TISSUES: Kyphosis visualized, multilevel vertebral bodies fractures visualized, T9, T8 and T11 compression deformities are visualized on the prior study and demonstrate no change. Vertebral augmentation is seen. Bone demineralization seen. RAD/Chest PA and Lateral IMPRESSION: Cardiomegaly and bilateral pleural effusions are seen. Electronically Signed: Kojo Alcocer MD at 14:47 EDT ,
== END | disposition home or self-care (01) ==
PROVIDERS: PCP Family Medicine; Referring Provider Family Medicine; Visit Provider Family Medicine
DX: J90 Pleural effusion, not elsewhere classified (principal); W19.XXXA Unspecified fall, initial encounter
CPT/HCPCS: 71046

== ENCOUNTER → 2022-05-20 | Outpatient (CLI) | payer MEDICARE, OTHER, SELFPAY ==
[2022-05-20 12:20] LABS: Absolute Lymphocyte Count 0.48 X10^3/uL (0.83-4.51); Absolute Neutrophil Count 12.4 X10^3/uL (2.0-7.7); Basophil# 0.06 X10^3/uL; Basophil% 0.4 % (0-1); Eosinophil# 0.12 X10^3/uL; Eosinophils% 0.8 % (0-5); Hematocrit 29.7 % (40-54); Hemoglobin 9.4 g/dL (13.0-16.5); Lymphocyte # 0.48 X10^3/ul (0.83-4.51); Lymphocyte % 3.4 % (19-41); Mean Corp Hgb Conc 31.6 g/dL (32-36); Mean Corpuscular Hgb 30.4 pg (27.0-32.0); Mean Corpuscular Volume 96.1 fL (80-94); Monocyte# 0.85 X10^3/uL; NRBC Flagged by Analyzer 0 % (0-5); Neutrophil # 12.39 X10^3/uL (2.7-7.7); Neutrophil % 87.8 % (47-70); POSITIVE DIFFERENTIAL YES; POSITIVE MORPHOLOGY YES; Platelet Count 514 K/mm3 (150-450); RBC Distribution Width CV 20.4 % (11.6-14.6); RBC Distribution Width SD 69.8 fl (35.1-43.9); Red Blood Count 3.09 M/mm3 (4.6-6.2); White Blood Count 14.1 K/mm3 (4.4-11.0)
[2022-05-20 12:33] LABS: Differential Indicated SCAN CRITERIA MET
[2022-05-20 12:51] LABS: ALB/GLOB Ratio 0.6 RATIO (0.9-2.4); AST(SGOT) 49 U/L (15-37); Alanine Aminotransfer ALT/SGPT 68 U/L (16-61); Albumin, Serum 2.8 g/dL (3.2-5.0); Alkaline Phosphatase 68 U/L (45-117); Anion Gap 7 (5-15); BUN 30 mg/dL (7-18); BUN/Creat Ratio 14.2 RATIO (10-20); Calcium,Total 8.7 mg/dL (8.5-10.1); Chloride 104 mmol/L (98-107); Creatinine, Serum 2.11 mg/dL (0.70-1.30); EST Glomerular Filtration Rate 32 mL/min (>60); Est Glom Filt Rate - Afr Amer 39 mL/min (>60); Globulin 4.4 g/dL (2.2-4.2); Glucose 83 mg/dL (74-106); Magnesium 1.9 mg/dL (1.6-2.6); Potassium 3.4 mmol/L (3.5-5.1); Protein, Total 7.2 g/dL (6.4-8.2); Sodium Level 139 mmol/L (136-145)
[2022-05-20 12:56] LABS: Anisocytosis 2+; Differential Comment SCANNED; Hypochromasia 1+; Macrocytosis 1+; Microcytosis 1+
[2022-05-20 12:56] LABS: International Normalized Ratio 2.1; Prothrombin Time (Protime)PT. 23.5 SECONDS (11.7-14.9)
== END | disposition home or self-care (01) ==
LOC: MFPLAB 10:41
PROVIDERS: Internal Medicine Cardiovascular Disease; PCP Family Medicine; Referring Provider Family Medicine; Visit Provider Family Medicine
DX: I48.91 Unspecified atrial fibrillation (principal); I50.30 Unspecified diastolic (congestive) heart failure; Z79.01 Long term (current) use of anticoagulants
CPT/HCPCS: 36415; 80053; 83735; 83880; 85025; 85610

== ENCOUNTER → 2022-05-31 | Outpatient (CLI) | payer MEDICARE, OTHER, SELFPAY ==
--- NOTE | 2022-05-31 12:44 | RAD_ITS ---
STUDY: CHEST SERIES--PA AND LATERAL VIEWS OF 1252 HOURS ON 05/31/2022 REASON FOR EXAM: 81-year-old male. Evaluate for a pleural effusion. TECHNIQUE: A standard 2 view chest x-ray series was performed. COMPARISON: None. 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 Mild cardiomegaly with a left ventricular cardiac configuration, but no evidence of heart failure. No pulmonary infiltrates, atelectasis, or effusion. There is a 1 cm rounded density in the region of the bosselated left hemidiaphragm that is not evident on the other studies is not seen in the lateral view. This may be simulated by a tortuous blood vessel or may represent a pulmonary mass. Additional oblique views are recommended for further evaluation. There is no evidence of a pulmonary mass lesions. There is a tortuous thoracic aorta. RAD/Chest PA and Lateral IMPRESSION: 1. Mild cardiomegaly with a left ventricular cardiac configuration, but no evidence of heart failure. 2. No pulmonary effusion. 3. No pulmonary infiltrates or atelectasis. 4. Presence of a 1 cm diameter rounded density adjacent to the right hemidiaphragm in the PA view only. This may be simulated by a tortuous blood vessel or may represent a mass. Oblique views of the chest recommended for further evaluation. 5. No evident pulmonary mass lesions are evident. 6. 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 Electronically Signed: Jhon Reynolds MD at 2:03 EDT ,
[2022-05-31 15:33] LABS: ALB/GLOB Ratio 0.6 RATIO (0.9-2.4); AST(SGOT) 88 U/L (15-37); Alanine Aminotransfer ALT/SGPT 90 U/L (16-61); Albumin, Serum 2.9 g/dL (3.2-5.0); Alkaline Phosphatase 104 U/L (45-117); Anion Gap 8 (5-15); BUN 42 mg/dL (7-18); Calcium,Total 8.9 mg/dL (8.5-10.1); Chloride 106 mmol/L (98-107); Creatinine, Serum 2.33 mg/dL (0.70-1.30); EST Glomerular Filtration Rate 29 mL/min (>60); Est Glom Filt Rate - Afr Amer 35 mL/min (>60); Globulin 4.8 g/dL (2.2-4.2); Glucose 102 mg/dL (74-106); Magnesium 2.4 mg/dL (1.6-2.6); Potassium 3.7 mmol/L (3.5-5.1); Protein, Total 7.7 g/dL (6.4-8.2); Sodium Level 140 mmol/L (136-145)
== END | disposition home or self-care (01) ==
PROVIDERS: PCP Family Medicine; Referring Provider Family Medicine; Visit Provider Family Medicine
DX: I50.30 Unspecified diastolic (congestive) heart failure (principal); J90 Pleural effusion, not elsewhere classified; M79.10 Myalgia, unspecified site; E87.5 Hyperkalemia
CPT/HCPCS: 36415; 71046; 80053; 83735; 83880; 86140

== ENCOUNTER → 2022-06-14 | Outpatient (CLI) | payer MEDICARE, OTHER, SELFPAY ==
[2022-06-14 15:10] LABS: Absolute Lymphocyte Count 0.54 X10^3/uL (0.83-4.51); Absolute Neutrophil Count 8.6 X10^3/uL (2.0-7.7); Basophil# 0.06 X10^3/uL; Basophil% 0.6 % (0-1); Hematocrit 30.5 % (40-54); Hemoglobin 9.3 g/dL (13.0-16.5); Lymphocyte # 0.54 X10^3/ul (0.83-4.51); Lymphocyte % 5.2 % (19-41); Mean Corp Hgb Conc 30.5 g/dL (32-36); Mean Corpuscular Hgb 28.7 pg (27.0-32.0); Mean Corpuscular Volume 94.1 fL (80-94); Monocyte# 1.13 X10^3/uL; Monocyte% 10.8 % (0-10); NRBC Flagged by Analyzer 0 % (0-5); Neutrophil # 8.58 X10^3/uL (2.7-7.7); Neutrophil % 81.7 % (47-70); POSITIVE DIFFERENTIAL YES; Platelet Count 428 K/mm3 (150-450); RBC Distribution Width CV 18.7 % (11.6-14.6); RBC Distribution Width SD 64.1 fl (35.1-43.9); Red Blood Count 3.24 M/mm3 (4.6-6.2); White Blood Count 10.5 K/mm3 (4.4-11.0)
[2022-06-14 15:19] LABS: ALB/GLOB Ratio 0.8 RATIO (0.9-2.4); AST(SGOT) 51 U/L (15-37); Alanine Aminotransfer ALT/SGPT 60 U/L (16-61); Albumin, Serum 3.1 g/dL (3.2-5.0); Alkaline Phosphatase 89 U/L (45-117); Anion Gap 10 (5-15); BUN 23 mg/dL (7-18); BUN/Creat Ratio 14.8 RATIO (10-20); Calcium,Total 8.4 mg/dL (8.5-10.1); Chloride 109 mmol/L (98-107); Creatinine, Serum 1.55 mg/dL (0.70-1.30); EST Glomerular Filtration Rate 46 mL/min (>60); Est Glom Filt Rate - Afr Amer 56 mL/min (>60); Globulin 4.1 g/dL (2.2-4.2); Glucose 97 mg/dL (74-106); Potassium 3.6 mmol/L (3.5-5.1); Protein, Total 7.2 g/dL (6.4-8.2); Sodium Level 143 mmol/L (136-145)
[2022-06-14 15:20] LABS: Prothrombin Time (Protime)PT. 21.9 SECONDS (11.7-14.9)
[2022-06-14 15:21] LABS: Differential Indicated SCAN CRITERIA MET
[2022-06-14 15:32] LABS: Differential Comment SCANNED
== END | disposition home or self-care (01) ==
LOC: MFPLAB 12:17
PROVIDERS: Internal Medicine Cardiovascular Disease; PCP Family Medicine; Referring Provider Family Medicine; Visit Provider Family Medicine
DX: I50.30 Unspecified diastolic (congestive) heart failure (principal)
CPT/HCPCS: 36415; 80053; 85025; 85610

== ENCOUNTER → 2022-06-15 | Outpatient (CLI) | payer MEDICARE, OTHER, SELFPAY ==
[2022-06-15 15:28] LABS: Microalbumin:Creatinine Ratio 56.1 mg/g CRE (<30 mg/g CRE)
== END | disposition home or self-care (01) ==
LOC: MFPLAB 14:12
PROVIDERS: PCP Family Medicine; Referring Provider Family Medicine; Visit Provider Family Medicine
DX: I50.30 Unspecified diastolic (congestive) heart failure (principal)
CPT/HCPCS: 82043; 82570

== ENCOUNTER 2022-06-30 11:33 | Day surgery (SDC) | payer MEDICARE, OTHER, SELFPAY ==
--- NOTE | 2022-06-30 12:00 | HP.PCM_ITS ---
History and Physical Date of Admission: 06/30/22 ?Balbir established with this clinic 06.18.[address] [facility] hospitalization. [facility] ED presentation 05.04.22 with fatigue, weakness, nausea without emesis. He was diagnosed with acute colitis and treated with ATB; heart disease; hypothyroidism; BPH. Discharged 05.12.22 without gastroenterology consult. Fecal elastase 7. L104. Acute abd series 05.04.22 noting mild/mod cardiomegaly without heart failure; mild ileus. 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 CT abd/pel 05.08.22 stable small retrocardiac hiatal hernia; retained colonic stool; diverticulosis in sigmoid colon with underlying lesion that could be r/t extensive diverticular disease without evidence of acute diverticulitis. US abd 05.08.22 noting stable small retrocardiac hiatal hernia; retained stool in colon; diverticulosis in sigmoid colon with underlying lesion that could be r/t extensive diverticular disease without evidence of acute diverticulitis. HIDA scan 05.09.22 noting transient duodenal gastric reflux; gallbladder EF 67% (>35% normal). Continues to have difficulty with chest burning midline; he has begun having some SOB ([facility]). Denies difficulty with nausea. Stools Having 2-3 small soft BM a day. Lower abdominal pain is an issue with resolution following BM. Stools without blood or black color. Currently taking Zenpep (feels this is ineffective); Protonix (unsure if helpful, takes at supper), supplementing with TUMs QHS. BALBIR HANSEN, is a 82 M who presents to the office today for ROS Const Constitutional: No malaise, night sweats, weight change, sleep problems, abnormal sleep pattern or change in appetite ENT ENT: No difficulty swallowing, hoarseness or sore throat Cardio Cardiology: No chest pain at rest Gastro GI: No belching, bloating, change in bowel habits, change in stool character, coffee ground emesis, constipation, cramping, diarrhea, heartburn, difficulty swallowing, feeling full early, excessive flatus, incontinent of stools, Vomiting blood/hematemesis, Blood in stool, loose stools, Black,tarry stools, nausea/dyspepsia, pain with swallowing, vomiting or other Musc Musculoskeletal: No joint pain Skin Skin: No yellowing of the eye or itchy eyes Neuro Neurology: No behavioral changes Psych Psychiatric: No abnormal sleep pattern, No anxiety, No behavioral changes, No change in appetite and No depression Endo Endocrine: No weight change Aller/Imm Allergy/Immunologic: No itchy eyes Giacomo/Lymp Hematologic/Lymphatic: No easy bleeding or easy bruising Exam Const General: cooperative and comfortable Nutritional Appearance: average body habitus and well nourished [facility] Head: normal to inspection Ears: hearing grossly normal bilaterally Nose: external nose normal Face and sinus: normal facial exam Mouth: oral mucosae normal Throat: posterior oropharynx normal Eyes General: appearance normal, both eyes and all related structures Neck Neck: normal visual inspection Chest Chest palpation & inspection: normal inspection of the chest and normal palpation of entire chest wall Resp Effort & Inspection: normal respiratory effort Auscultation: Bilateral: Clear to Auscultation Cardio Palpation: normal PMI Rate: regular rate Rhythm: regular rhythm GI Inspection: normal to inspection Auscultation: normal bowel sounds Percussion: normal to percussion Palpation: no hepatosplenomegaly Skin General: no rashes or lesions noted Neuro General: patient alert Extrem General: normal to inspection Psych Affect: normal affect Quality Reporting Tobacco Screening ([facility] 138) Smoking Status: Never smoker Assessment and Plan Assessment and Plan (1) Gastroesophageal reflux disease: ?Status:?Chronic ?Plan: He is not taking his medicine for gastroesophageal reflux disease the correct way.? He is taking pantoprazole 40 mg at night.? I told him to take pantoprazole 40 mg in the a.m. empty stomach approximately 30 minutes before eating anything.? For his nighttime symptoms we will give her famotidine 40 mg at night.? I do not want to twice daily because of his renal insufficiency. After looking at his CT scan abdomen pelvis it seems to hiatal hernia have become dehisced.? We will perform an upper endoscopy to evaluate his upper GI tract along with performing a capsule endoscopy due to his history of persistent anemia. (2) Colitis: ?Status:?Resolved ?Plan: I suspect that the colitis that was seen on CT scan was infectious or ischemic.? At this time he is not having any lower GI symptoms such as diarrhea, no bloating, lower GI bleeding or constipation. ? ? ? Medications: New famotidine 40 mg? PO DAILY 30 tabs 3RF ? ? I have examined the patient and the H&P has been reviewed. There are no clinical changes since date of exam.
[2022-06-30 12:07] VITALS: BP 135/89; PULSE 87; RESP 18; TEMP 36.4; O2SAT 98; BMI 21.9
[2022-06-30] MEDS: Lactated Ringers 1,000 ML 15 ML IV (12:19)
[2022-06-30 13:24] VITALS: BP 123/78; BP 135/89; PULSE 84; RESP 18; TEMP 36.7; O2SAT 94
[2022-06-30 13:30] VITALS: BP 121/76; BP 135/89; PULSE 88; PULSE 89; RESP 20; O2SAT 96; O2SAT 97
--- NOTE | 2022-06-30 13:30 | OP.EGD_ITS ---
Patient Name: Balbir Mckeon Procedure Date: 06/30/2022 1:15 PM Date of : 1940 Age: 82 Procedure: Upper GI endoscopy Indications: Iron deficiency anemia, Heartburn, Failure to respond to medical treatment Providers: Mika Hodges DO Medicines: Monitored Anesthesia Care Patient Profile: This is an 82 year old male. Refer to note in patient chart for documentation of history and physical. Patient has symptoms of acute heartburn. Complications: No immediate complications. Procedure: Pre-Anesthesia Assessment: - Prior to the procedure, a History and Physical was performed, and patient medications and allergies were reviewed. The patient is competent. The risks and benefits of the procedure and the sedation options and risks were discussed with the patient. All questions were answered and informed consent was obtained. Patient identification and proposed procedure were verified by the physician in the pre-procedure area. Mental Status Examination: alert and oriented. Airway Examination: normal oropharyngeal airway and neck mobility. Respiratory Examination: clear to auscultation. CV Examination: normal. Prophylactic Antibiotics: The patient does not require prophylactic antibiotics. Prior Anticoagulants: The patient has taken no previous anticoagulant or antiplatelet agents. ASA Grade Assessment: II - A patient with mild systemic disease. After reviewing the risks and benefits, the patient was deemed in satisfactory condition to undergo the procedure. The anesthesia plan was to use monitored anesthesia care (MAC). Immediately prior to administration of medications, the patient was re-assessed for adequacy to receive sedatives. The heart rate, respiratory rate, oxygen saturations, blood pressure, adequacy of pulmonary ventilation, and response to care were monitored throughout the procedure. The physical status of the patient was re-assessed after the procedure. After obtaining informed consent, the endoscope was passed under direct vision. Throughout the procedure, the patient's blood pressure, pulse, and oxygen saturations were monitored continuously. The gastroscope was introduced through the mouth, and advanced to the second part of duodenum. The upper GI endoscopy was accomplished without difficulty. The patient tolerated the procedure well. Scope In: 1:16:05 PM Scope Out: 1:20:42 PM Total Procedure Duration Time 0 hours 4 minutes 37 seconds Findings: The examined esophagus was moderately tortuous. A medium-sized hiatal hernia was present. The pyloric sphincter was wide open with severe gastritis that was seen endoscopically. The video PillCam was endoscopically placed in the small bowel. The first portion of the duodenum was normal. Impression: - Tortuous esophagus. - Medium-sized hiatal hernia. - Normal first portion of the duodenum. - No specimens collected. Recommendation: - Discharge patient to home. - Resume previous diet. - Continue present medications. Procedure Code(s): --- Professional --- 48958, Esophagogastroduodenoscopy, flexible, transoral; diagnostic, including collection of specimen(s) by brushing or washing, when performed (separate procedure) CPT copyright 2017 [employer]. All rights reserved. The codes documented in this report are preliminary and upon senior policy analyst review may be revised to meet current compliance requirements. Mika Hodges DO 06/30/2022 1:29:59 PM This report has been signed electronically. Number of Addenda: 0 Note Initiated On: 06/30/2022 1:15 PM
--- NOTE | 2022-06-30 13:32 | OP.CCLET_ITS ---
06/30/2022 César Chinchilla [address] [place] [address] Re : Upper GI endoscopy procedure for Balbir Mckeon Dear Dr. Chinchilla This procedure was performed on Thursday, June 30, 2022. My impressions and recommendations are as follows: Impressions : - Tortuous esophagus. - Medium-sized hiatal hernia. - Normal first portion of the duodenum. - No specimens collected. Recommendations : - Discharge patient to home. - Resume previous diet. - Continue present medications. My findings are described in the full procedure note, which is enclosed. If I can be of further assistance, please feel free to contact me at . Sincerely, Mika Hodges, 06/30/2022 1:29:59 PM This report has been signed electronically.
[2022-06-30 13:35] VITALS: BP 119/77; BP 135/89; PULSE 88; RESP 18; O2SAT 97
[2022-06-30 13:41] VITALS: BP 116/81; BP 135/89; PULSE 82; RESP 18; TEMP 37.3; O2SAT 93
[2022-06-30 14:03] VITALS: BP 135/89
== END 2022-06-30 14:17 | disposition home or self-care (01) ==
LOC: EN 11:33 → AC 11:35
PROVIDERS: PCP Family Medicine; Referring Provider Family Medicine; Visit Provider Internal Medicine Gastroenterology
PROC: 0DJ08ZZ Inspection of Upper Intestinal Tract, Via Natural or Artificial Opening Endoscopic (ICD-10-PCS; CPT 43235; principal; 2022-06-30 12:40)
DX: K44.9 Diaphragmatic hernia without obstruction or gangrene (principal); I48.0 Paroxysmal atrial fibrillation; R12 Heartburn; D50.9 Iron deficiency anemia, unspecified; K52.9 Noninfective gastroenteritis and colitis, unspecified; K21.9 Gastro-esophageal reflux disease without esophagitis; N28.9 Disorder of kidney and ureter, unspecified; E03.9 Hypothyroidism, unspecified; N40.0 Benign prostatic hyperplasia without lower urinary tract symptoms; I25.10 Atherosclerotic heart disease of native coronary artery without angina pectoris; E78.5 Hyperlipidemia, unspecified
CPT/HCPCS: 43235; J7120; J2405

== ENCOUNTER 2022-07-20 11:58 | Outpatient (CLI) | payer MEDICARE, OTHER, SELFPAY ==
[2022-07-20 12:56] LABS: Absolute Lymphocyte Count 0.68 X10^3/uL (0.83-4.51); Absolute Neutrophil Count 5.6 X10^3/uL (2.0-7.7); Basophil# 0.07 X10^3/uL; Basophil% 0.9 % (0-1); Eosinophil# 0.12 X10^3/uL; Eosinophils% 1.6 % (0-5); Hematocrit 29.1 % (40-54); Hemoglobin 8.7 g/dL (13.0-16.5); Lymphocyte # 0.68 X10^3/ul (0.83-4.51); Lymphocyte % 9.2 % (19-41); Mean Corp Hgb Conc 29.9 g/dL (32-36); Mean Corpuscular Hgb 27.2 pg (27.0-32.0); Mean Corpuscular Volume 90.9 fL (80-94); Mean Platelet Vol. 9.6 fl (6.2-12.0); Monocyte# 0.89 X10^3/uL; Monocyte% 12.1 % (0-10); NRBC Flagged by Analyzer 0 % (0-5); Neutrophil # 5.57 X10^3/uL (2.7-7.7); Neutrophil % 75.7 % (47-70); Platelet Count 372 K/mm3 (150-450); RBC Distribution Width CV 17.2 % (11.6-14.6); RBC Distribution Width SD 57.4 fl (35.1-43.9); White Blood Count 7.4 K/mm3 (4.4-11.0)
[2022-07-20 13:38] LABS: Anion Gap 7 (5-15); BUN 35 mg/dL (7-18); BUN/Creat Ratio 18.3 RATIO (10-20); Calcium,Total 8.7 mg/dL (8.5-10.1); Chloride 107 mmol/L (98-107); Creatinine, Serum 1.91 mg/dL (0.70-1.30); EST Glomerular Filtration Rate 36 mL/min (>60); Est Glom Filt Rate - Afr Amer 44 mL/min (>60); Free T3 2.2 pg/mL (2.18-3.98); Glucose 87 mg/dL (74-106); Magnesium 2.5 mg/dL (1.6-2.6); Potassium 3.8 mmol/L (3.5-5.1); Sodium Level 140 mmol/L (136-145); Thyroid Stim Hormone (TSH) 4.21 uIU/mL (0.358-3.74)
== END 2022-07-20 23:59 | disposition home or self-care (01) ==
LOC: LAB 12:00
PROVIDERS: Nurse Practitioner Gerontology; PCP Family Medicine; Referring Provider Internal Medicine Cardiovascular Disease; Visit Provider Internal Medicine Cardiovascular Disease
DX: R53.83 Other fatigue (principal)
CPT/HCPCS: 36415; 80048; 83735; 84443; 84481; 85025

== ENCOUNTER 2022-07-22 14:15 | Emergency (ER) | payer MEDICARE, OTHER, SELFPAY ==
[2022-07-22 14:15] VITALS: BP 146/96; PULSE 93; RESP 16; TEMP 36.2; O2SAT 96; BMI 22.5
--- NOTE | 2022-07-22 14:35 | EKG12_ITS ---
Test Reason : GENERAL ILLNESS Blood Pressure : / mmHG Vent. Rate : 077 BPM Atrial Rate : 254 BPM P-R Int : 000 ms QRS Dur : 098 ms QT Int : 442 ms P-R-T Axes : 000 007 024 degrees QTc Int : 500 ms Atrial flutter with variable A-V block Nonspecific ST abnormality Prolonged QT Abnormal ECG Confirmed by MARCE KASPER, ADAM ([id number]), material expeditor CIPRIANO GATES ([id number]) on 07/26/2022 11:52:52 AM Referred By: Confirmed By:ADAM ZHENG MD
--- NOTE | 2022-07-22 14:37 | EX.ED.DYSGE1 ---
HPI History of Present Illness Chief Complaint: General Illness Informant: patient Onset/Context/Timing Onset: Yesterday Context: Gradual Onset Timing: Continuous Quality: dry heaving Current Severity: Moderate Maximum Severity: Moderate Worsened by: eating/drinking Relieved by: nothing Associated Symptoms Associated Symptoms: chest/abd discomfort Narrative Narrative: Patient states for the last 3 to 4 days he has felt malaise, fatigue, and had chest discomfort that radiates to the right, nonpleuritic, and upper abdominal discomfort. He states 2 days ago he had an EGD because of acid reflux, and states that he has been nauseated since, and started dry heaving yesterday and into today. The chest and abdominal discomfort are unchanged before the EGD compared with after. When asked what the quality of it is he states acid pain. He states he was also diagnosed with a hiatal hernia, he is on medications for the GERD. He is on warfarin because of history of atrial fibrillation, he denies any bleeding from anywhere, denies any melena or bright red blood per rectum. States he was at a routine cardiology appointment a couple days ago and they did blood work showing that his hemoglobin was 8.7. He states the chest and abdominal discomfort are worse when he lies down and better when he sits up. He denies any dyspnea even with lying flat. No leg swelling. [facility] Medical History Acute diverticulitis of intestine Acute gastrointestinal bleeding Acute kidney injury superimposed on chronic kidney disease Ambulates with cane Anemia Arthritis Atherosclerotic heart disease of [place] coronary artery without angina pectoris Atrial fibrillation Atypical atrial flutter (12/2020) Back pain Benign prostatic hyperplasia BPH (benign prostatic hyperplasia) Cancer Cardiology follow-up encounter Chronic anemia Chronic heart failure with preserved ejection fraction (HFpEF) Chronic kidney disease Chronic renal insufficiency CPAP (continuous positive airway pressure) dependence Debility Difficulty chewing Dysphagia Easy bruising Elevated liver enzymes Essential (primary) hypertension Excessive bleeding Gastric reflux GERD (gastroesophageal reflux disease) GI bleed (2012) High cholesterol History of atrial fibrillation History of colon polyps History of diverticulitis History of echocardiogram History of edema History of heart attack History of hyperthyroidism History of leukemia History of pain when walking History of renal disease History of stress test HLD (hyperlipidemia) Hypertension Kidney disease Kidney stones Myocardial infarct Non-rheumatic tricuspid valve insufficiency Non-smoker Nonrheumatic mitral (valve) insufficiency 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 Osteoarthritis Paroxysmal atrial fibrillation Secondary pulmonary arterial hypertension Sleep apnea Sleep apnea Stage 3b chronic kidney disease Thoracic aortic aneurysm (TAA) Thyroid disease Wears glasses Home Medications denosumab 60 mg/mL subcutaneous syringe (Prolia) 60 mg SQ .[id number] BONES 12/09/20 [History Last Taken 3 Months Ago ~11/24/21] ipratropium bromide 21 mcg (0.03 %) nasal spray 2 spray intranasal PRN PRN SOB 05/06/21 [History Last Taken 02/23/22] tamsulosin 0.4 mg capsule 0.4 mg PO QHS bladder 11/18/21 [History Last Taken 02/24/22] warfarin 2 mg tablet 2 mg PO FR blood thinner 11/18/21 [History Last Taken 06/28/22] warfarin 4 mg tablet 4 mg PO SUMOTUWETHSA BLOOD THINNER 11/18/21 [History Last Taken 06/28/22] diltiazem HCl 120 mg capsule,extended release 24 hr 120 mg PO DAILY heart 01/07/22 [History Last Taken 02/24/22] nitroglycerin 0.4 mg sublingual tablet See Rx Instructions .Route .COMPLEX #25 TABLETS 02/02/22 [Rx Last Taken 02/24/22] levothyroxine 25 mcg tablet 25 mcg PO DAILY 02/17/22 [History Last Taken 06/30/22 08:00] lidocaine 5 % topical patch 1 patch topical DAILY PRN pain 02/17/22 [History Last Taken 2 Days Ago ~02/22/22] baclofen 5 mg tablet 5 mg PO TID PRN muscle spasms 05/01/22 [History Last Taken Unknown] beta carotene 25,000 unit tablet 25,000 unit PO DAILY 05/01/22 [History Last Taken Unknown] bisacodyl 5 mg tablet,delayed release (Dulcolax (bisacodyl)) 5 mg PO QHS 05/01/22 [History Last Taken Unknown] coenzyme Q10 100 mg capsule (Co Q-10) 100 mg PO DAILY 05/01/22 [History Last Taken Unknown] hydralazine 25 mg tablet 12.5 mg PO TID 05/01/22 [History Last Taken Unknown] isosorbide mononitrate 30 mg tablet,extended release 24 hr 30 mg PO DAILY 05/01/22 [History Last Taken Unknown] pantoprazole 40 mg tablet,delayed release 40 mg PO DAILY 05/01/22 [History Last Taken 06/30/22 08:00] vitamin B complex 1 cap PO BID 05/01/22 [History Last Taken Unknown] ondansetron 4 mg disintegrating tablet 4 mg PO Q8H PRN nausea and vomiting #14 tabs 05/11/22 [Rx Last Taken Unknown] metoprolol tartrate 25 mg tablet 12.5 mg PO BID #90 tabs 06/10/22 [Rx Last Taken 06/30/22 08:00] acetaminophen 500 mg capsule 1,000 mg PO Q6H PRN Pain 06/15/22 [History Last Taken Unknown] benzonatate 200 mg capsule 200 mg PO .q8hr PRN Cough 06/15/22 [History Last Taken Unknown] calcium citrate 250 mg PO BID 06/15/22 [History Last Taken Unknown] dapagliflozin 5 mg tablet (Farxiga) 5 mg PO DAILY 06/15/22 [History Last Taken Unknown] iron 150 mg-vit C 60 mg-folate 1 if-[id number]-[id number]-kvzs-qjzspsvl-mjowslv tablet (Niferex (Sumalate-Quatrefolic)) 1 tab PO DAILY 06/15/22 [History Last Taken Unknown] linaclotide 72 mcg capsule (Linzess) 72 mcg PO DAILY PRN Diarrhea 06/15/22 [History Last Taken Unknown] hrwexr-vggzvyjb-yzxnvla 40,000-126,000-168,000 unit capsule, delay rel (Zenpep) 3 cap PO TID 06/15/22 [History Last Taken Unknown] oxybutynin chloride 5 mg tablet 5 mg PO QHS 06/15/22 [History Last Taken Unknown] polyethylene glycol 3350 17 gram/dose oral powder (Gavilax) 17 g PO DAILY 06/15/22 [History Last Taken Unknown] torsemide 10 mg tablet 10 mg PO DAILY 06/15/22 [History Last Taken Unknown] famotidine 40 mg tablet 40 mg PO DAILY #30 tabs 06/18/22 [Rx Last Taken Unknown] furosemide 40 mg tablet 10 mg PO DAILY 06/28/22 [History Last Taken Unknown] meclizine 25 mg tablet 25 mg PO PRN PRN Vertigo 06/28/22 [History Last Taken Unknown] amiodarone 100 mg tablet 100 mg PO BID #180 tabs 07/02/22 [Rx Last Taken Unknown] sucralfate 1 gram tablet (Carafate) 1 g PO QAC #90 tabs 07/05/22 [Rx Last Taken Unknown] ascorbic acid (vitamin C) 500 mg tablet 500 mg PO DAILY 07/20/22 [History Last Taken Unknown] amoxicillin 875 mg-potassium clavulanate 125 mg tablet 875 mg PO Q12H #20 TABLETS 07/22/22 [Rx Last Taken Unknown] ondansetron 4 mg disintegrating tablet 8 mg PO Q8H PRN PRN Nausea #20 tabs 07/22/22 [Rx Last Taken Unknown] Allergy/AdvReac Type Severity Reaction Status Date / Time diclofenac Allergy rash Verified 07/22/22 14:17 prednisone Allergy Rash Verified 07/22/22 14:17 Family History Father Cancer Prostate cancer Mother Hypertension Sister Hypertension Surgical History History of back surgery History of back surgery History of cardiac catheterization History of cardioversion (06/18/19) History of coronary artery stent placement (08/04/00) History of electrophysiologic study (08/08/00) History of esophagogastroduodenoscopy (EGD) History of hemorrhoidectomy History of hernia repair History of left heart catheterization (07/17/12) History of Zenaida fundoplication History of radiofrequency ablation procedure for cardiac arrhythmia (11/11/11) Social History household members: none Smoking Status: Never smoker alcohol intake: never substance use type: does not use caffeine: No ROS ROS ED Constitutional Constitutional ED: Reports fatigue and malaise; Denies chills or fever(s) Eyes Eyes: Denies change in vision or diplopia ENT ENT ED: Denies rhinorrhea or sore throat Cardiovascular Cardiovascular: Reports chest pain; Denies leg edema, orthopnea or palpitations Respiratory/Chest Respiratory/Chest: Reports cough; Denies dyspnea or orthopnea Gastrointestinal Gastrointestinal: Reports abdominal pain, nausea and vomiting; Denies diarrhea Genitourinary Genitourinary ED: Denies dysuria or hematuria Musculoskeletal Musculoskeletal: Denies back pain or neck pain Integumentary Denies abscess or rash Neurologic Neurologic: Denies headache(s), paresthesias or weakness Psychiatric Psychiatric: Denies anxiety or suicidal thoughts EXAM Physical Exam Const Vital Signs: 07/22/22 14:15 07/22/22 16:30 07/22/22 17:44 Temperature 97.2 F L 97.6 F L Temperature Source Temporal Oral Pulse Rate 93 78 76 Respiratory Rate 16 20 H 18 Blood Pressure 146/96 H 138/82 H 131/85 H Blood Pressure Mean 112 100 100 Pulse Ox 96 95 93 Oxygen Delivery Method Room Air Room Air Room Air Positive well nourished and well developed General Appearance ED: well developed and NAD HEENT Reports moist mucous membranes normocephalic and atraumatic Eyes PERRL and EOMs intact bilaterally Neck full ROM and supple Resp normal respiratory effort and clear to auscultation bilaterally Cardio regular rate, regular rhythm and no murmurs Heart Sounds: abnormal sounds multicomponent S1 GI non-tender and non-distended Auscultation: normoactive bowel sounds Palpation: soft Back/Spine no CVA tenderness General Back: other FROM Extremity normal to inspection General Extremety ED: Negative for edema, pulses abnormal or tenderness General Extremity: Negative for edema or pulses abnormal Neuro oriented x3, CN's II-XII intact bilaterally and no sensory deficits noted Sensorium / Orientation: awake and alert Motor Exam: strength 5/5 throughout Psych mental status grossly normal Skin no rashes or lesions noted and no wounds MDM MDM MDM Narrative Medical decision making narrative: Patient's labs are only remarkable for chronic renal insufficiency which is actually improved compared with the last recent interpretation, and mild hypokalemia possibly due to vomiting but he has a history of low potassium due to diuretic therapy. 2 view chest x-ray shows an early right lower lobe infiltrate on my interpretation. Radiology in agreement. I see the hiatal hernia the patient comments about. It is possible he has pneumonia contributing to his right-sided chest discomfort and vomiting since it is basilar. I will treat him accordingly. His cardiac work-up is negative after a couple days of constant symptoms. He is not hypoxic and doing well clinically and is comfortable being discharged home. His hemoglobin is higher than it was a couple days ago and does not require transfusion at this time, the trend and MCV are compatible with anemia of chronic renal disease. His nausea is improved after Zofran, and his chest and epigastric discomfort are improved after a GI cocktail. He was given IV fluids as well as some replacement potassium, however on reevaluation after those medications he is still vomiting, he is feeling very weak and unsteady and lightheaded with attempting to ambulate, he lives alone and does not feel comfortable going home since he is feeling so poorly. I was alerted that patient changed his mind, he does not want to stay now. He is concerned about cost of the stay and now wants to be discharged home with prescriptions. Lab Data Attestation: I reviewed the patient's lab results. Labs: Laboratory Results - last 24 hr 07/22/22 07/22/22 07/22/22 14:50 14:50 14:50 WBC 7.1 RBC 3.43 L Hgb 9.3 L Hct 31.3 L MCV 91.3 MCH 27.1 MCHC 29.7 L RDW Std Deviation 57.5 H RDW Coeff of Pablo 17.1 H Plt Count 363 MPV 9.3 Immature Gran % (Auto) 1.000 H Neut % (Auto) 84.0 H Lymph % (Auto) 6.8 L [place] % (Auto) 7.2 Eos % (Auto) 0.3 Baso % (Auto) 0.7 Absolute Neuts (auto) 5.9 Absolute Lymphs (auto) 0.48 L Nucleated RBC % 0 Differential Comment SCANNED PT 20.5 H INR 1.8 Sodium 141 Potassium 3.3 L Chloride 108 H Carbon Dioxide 26.0 Anion Gap 7 BUN 27 H Creatinine 1.69 H Estim Creat Clear Calc 32.55 Est GFR (MDRD) Af Amer 50 L Est GFR (MDRD) Non-Af 42 L BUN/Creatinine Ratio 16.0 Glucose 114 H Calcium 8.1 L Total Bilirubin 0.60 AST 49 H ALT 55 Alkaline Phosphatase 74 Troponin I High Sens 21 Total Protein 7.5 Albumin 3.3 Globulin 4.2 Albumin/Globulin Ratio 0.8 L Lipase 83 Radiography Chest X-Ray - ED: 2 View, Read by ED Physician, Right Infiltrate and - (Hiatal hernia) Diagnostic Testing: Clinical Impression(s) from Imaging Studies Chest X-Ray 07/22/22 15:15 IMPRESSION: Right sided pneumonia. Electronically Signed: Ted Crocker MD at 16:07 EST , Rhythm Strip Rhythm Strip: A-fib (afib-flutter) Rate: 80 Ectopy: None EKG Initial EKG: Attestation: I personally reviewed and interpreted this EKG as follows: Interpretation: No Acute Injury Pattern and Atrial Flutter Prior EKG tracings: available for review Prior: Unchanged Discharge Plan Triage Chief Complaint: General Illness ED Provider: Casimiro Ennis Dx/Rx/DC Orders Clinical Impression: Pneumonia, Hypokalemia, Chronic kidney disease, stage 3b, Atypical atrial flutter, Chest pain, Vomiting, Debility, Anemia Primary Care Provider: César Chinchilla Disposition Disposition: Home, Self Care
[2022-07-22 15:04] LABS: Absolute Lymphocyte Count 0.48 X10^3/uL (0.83-4.51); Absolute Neutrophil Count 5.9 X10^3/uL (2.0-7.7); Basophil# 0.05 X10^3/uL; Basophil% 0.7 % (0-1); Eosinophil# 0.02 X10^3/uL; Eosinophils% 0.3 % (0-5); Hematocrit 31.3 % (40-54); Hemoglobin 9.3 g/dL (13.0-16.5); Lymphocyte # 0.48 X10^3/ul (0.83-4.51); Lymphocyte % 6.8 % (19-41); Mean Corp Hgb Conc 29.7 g/dL (32-36); Mean Corpuscular Hgb 27.1 pg (27.0-32.0); Mean Corpuscular Volume 91.3 fL (80-94); Mean Platelet Vol. 9.3 fl (6.2-12.0); Monocyte# 0.51 X10^3/uL; Monocyte% 7.2 % (0-10); NRBC Flagged by Analyzer 0 % (0-5); Neutrophil # 5.94 X10^3/uL (2.7-7.7); POSITIVE DIFFERENTIAL YES; Platelet Count 363 K/mm3 (150-450); RBC Distribution Width CV 17.1 % (11.6-14.6); RBC Distribution Width SD 57.5 fl (35.1-43.9); Red Blood Count 3.43 M/mm3 (4.6-6.2); White Blood Count 7.1 K/mm3 (4.4-11.0)
[2022-07-22] MEDS: 0.9% Normal Saline 1,000 ML 250 ML IV (15:11)
[2022-07-22] MEDS: Ondansetron 4 MG/2 ML Vial IV ×2 (15:11→17:42)
[2022-07-22 15:13] LABS: International Normalized Ratio 1.8; Prothrombin Time (Protime)PT. 20.5 SECONDS (11.7-14.9)
[2022-07-22 15:15] LABS: Differential Indicated SCAN CRITERIA MET
--- NOTE | 2022-07-22 15:15 | RAD_ITS ---
STUDY: X-RAY CHEST REASON FOR EXAM: Male, 82 years old. chest pain, cough, n/v TECHNIQUE: XR Chest 2 Views COMPARISON: 05.31.22 FINDINGS: There is atherosclerotic calcification of the aortic arch with tortuosity. There are diffuse degenerative changes of the visualized thoracic spine. There is degenerative osteoarthritis of the bilateral shoulders. Kyphoplasty changes. There is right lower lobe infiltrate. Normal size heart. Normal mediastinum and nasrin. Normal visualized pulmonary arteries. There is no demonstrated abnormality of the visualized soft tissue structures of the upper abdomen. RAD/Chest PA and Lateral IMPRESSION: Right sided pneumonia. Electronically Signed: Ted Crocker MD at 16:07 EST ,
[2022-07-22 15:30] LABS: ALB/GLOB Ratio 0.8 RATIO (0.9-2.4); AST(SGOT) 49 U/L (15-37); Alanine Aminotransfer ALT/SGPT 55 U/L (16-61); Albumin, Serum 3.3 g/dL (3.2-5.0); Alkaline Phosphatase 74 U/L (45-117); Anion Gap 7 (5-15); BUN 27 mg/dL (7-18); Calcium,Total 8.1 mg/dL (8.5-10.1); Chloride 108 mmol/L (98-107); Creatinine, Serum 1.69 mg/dL (0.70-1.30); EST Glomerular Filtration Rate 42 mL/min (>60); Est Glom Filt Rate - Afr Amer 50 mL/min (>60); Estimated Creatinine Clearance 32.55 ml/min; Globulin 4.2 g/dL (2.2-4.2); Glucose 114 mg/dL (74-106); Lipase 83 U/L (73-393); Potassium 3.3 mmol/L (3.5-5.1); Protein, Total 7.5 g/dL (6.4-8.2); Sodium Level 141 mmol/L (136-145); Troponin-I HS 21 pg/mL (3.0-78.0)
[2022-07-22 16:07] LABS: Differential Comment SCANNED
[2022-07-22 16:30] VITALS: BP 138/82; PULSE 78; RESP 20; O2SAT 95
[2022-07-22] MEDS: Mag Hydrox/Al Hydrox/Simeth 30 ML UDC PO (16:34)
[2022-07-22] MEDS: Acetaminophen 500 MG Tablet 1000 MG PO (16:55)
[2022-07-22] MEDS: Potassium Chloride Oral Tablet 20 MEQ 40 MEQ PO (16:56)
[2022-07-22] MEDS: Amox/Clavulanate 875 MG Tablet PO (16:56)
[2022-07-22 17:44] VITALS: BP 131/85; PULSE 76; RESP 18; TEMP 36.4; O2SAT 93
--- NOTE | 2022-07-22 19:37 | PCM.HP.STD ---
[facility] - General General Date of Admission: 07/22/22 Date of Service: 07/22/22 Chief Complaint: Weakness and nausea and vomiting. HPI Narrative RICHIE HANSEN, is a 82 M who presents intractable nausea and vomiting and weakness. Presented to the emergency room where he had chest x-ray that was read out as pneumonia. Plan was to discharge patient home with Augmentin but patient was still having nausea and vomiting and felt dizzy when he stood up. [place] too unwell to go home. The hospitalist was contacted for admission. Patient denies any shortness of breath or cough. In the emergency room, patient received saline, potassium, GI cocktail and Zofran. Patient states that he has a history of refractory nausea vomiting since his hiatal hernia surgery has come undone lately. [facility] Medical History Acute diverticulitis of intestine Acute gastrointestinal bleeding Acute kidney injury superimposed on chronic kidney disease Ambulates with cane Anemia Arthritis Atherosclerotic heart disease of [place] coronary artery without angina pectoris Atrial fibrillation Atypical atrial flutter (12/2020) Back pain Benign prostatic hyperplasia BPH (benign prostatic hyperplasia) Cancer Cardiology follow-up encounter Chronic anemia Chronic heart failure with preserved ejection fraction (HFpEF) Chronic kidney disease Chronic renal insufficiency CPAP (continuous positive airway pressure) dependence Debility Difficulty chewing Dysphagia Easy bruising Elevated liver enzymes Essential (primary) hypertension Excessive bleeding Gastric reflux GERD (gastroesophageal reflux disease) GI bleed (2012) High cholesterol History of atrial fibrillation History of colon polyps History of diverticulitis History of echocardiogram History of edema History of heart attack History of hyperthyroidism History of leukemia History of pain when walking History of renal disease History of stress test HLD (hyperlipidemia) Hypertension Kidney disease Kidney stones Myocardial infarct Non-rheumatic tricuspid valve insufficiency Non-smoker Nonrheumatic mitral (valve) insufficiency 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 Osteoarthritis Paroxysmal atrial fibrillation Secondary pulmonary arterial hypertension Sleep apnea Sleep apnea Stage 3b chronic kidney disease Thoracic aortic aneurysm (TAA) Thyroid disease Wears glasses Home Medications denosumab 60 mg/mL subcutaneous syringe (Prolia) 60 mg SQ .[id number] BONES 12/09/20 [History Last Taken 3 Months Ago ~11/24/21] ipratropium bromide 21 mcg (0.03 %) nasal spray 2 spray intranasal PRN PRN SOB 05/06/21 [History Last Taken 02/23/22] tamsulosin 0.4 mg capsule 0.4 mg PO QHS bladder 11/18/21 [History Last Taken 02/24/22] warfarin 2 mg tablet 2 mg PO FR blood thinner 11/18/21 [History Last Taken 06/28/22] warfarin 4 mg tablet 4 mg PO SUMOTUWETHSA BLOOD THINNER 11/18/21 [History Last Taken 06/28/22] diltiazem HCl 120 mg capsule,extended release 24 hr 120 mg PO DAILY heart 01/07/22 [History Last Taken 02/24/22] nitroglycerin 0.4 mg sublingual tablet See Rx Instructions .Route .COMPLEX #25 TABLETS 02/02/22 [Rx Last Taken 02/24/22] levothyroxine 25 mcg tablet 25 mcg PO DAILY 02/17/22 [History Last Taken 06/30/22 08:00] lidocaine 5 % topical patch 1 patch topical DAILY PRN pain 02/17/22 [History Last Taken 2 Days Ago ~02/22/22] baclofen 5 mg tablet 5 mg PO TID PRN muscle spasms 05/01/22 [History Last Taken Unknown] beta carotene 25,000 unit tablet 25,000 unit PO DAILY 05/01/22 [History Last Taken Unknown] bisacodyl 5 mg tablet,delayed release (Dulcolax (bisacodyl)) 5 mg PO QHS 05/01/22 [History Last Taken Unknown] coenzyme Q10 100 mg capsule (Co Q-10) 100 mg PO DAILY 05/01/22 [History Last Taken Unknown] hydralazine 25 mg tablet 12.5 mg PO TID 05/01/22 [History Last Taken Unknown] isosorbide mononitrate 30 mg tablet,extended release 24 hr 30 mg PO DAILY 05/01/22 [History Last Taken Unknown] pantoprazole 40 mg tablet,delayed release 40 mg PO DAILY 05/01/22 [History Last Taken 06/30/22 08:00] vitamin B complex 1 cap PO BID 05/01/22 [History Last Taken Unknown] ondansetron 4 mg disintegrating tablet 4 mg PO Q8H PRN nausea and vomiting #14 tabs 05/11/22 [Rx Last Taken Unknown] metoprolol tartrate 25 mg tablet 12.5 mg PO BID #90 tabs 06/10/22 [Rx Last Taken 06/30/22 08:00] acetaminophen 500 mg capsule 1,000 mg PO Q6H PRN Pain 06/15/22 [History Last Taken Unknown] benzonatate 200 mg capsule 200 mg PO .q8hr PRN Cough 06/15/22 [History Last Taken Unknown] calcium citrate 250 mg PO BID 06/15/22 [History Last Taken Unknown] dapagliflozin 5 mg tablet (Farxiga) 5 mg PO DAILY 06/15/22 [History Last Taken Unknown] iron 150 mg-vit C 60 mg-folate 1 [id number] tablet (Niferex (Sumalate-Quatrefolic)) 1 tab PO DAILY 06/15/22 [History Last Taken Unknown] linaclotide 72 mcg capsule (Linzess) 72 mcg PO DAILY PRN Diarrhea 06/15/22 [History Last Taken Unknown] nghvxw-ibbjgtpm-jlylbfd 40,000-126,000-168,000 unit capsule, delay rel (Zenpep) 3 cap PO TID 06/15/22 [History Last Taken Unknown] oxybutynin chloride 5 mg tablet 5 mg PO QHS 06/15/22 [History Last Taken Unknown] polyethylene glycol 3350 17 gram/dose oral powder (Gavilax) 17 g PO DAILY 06/15/22 [History Last Taken Unknown] torsemide 10 mg tablet 10 mg PO DAILY 06/15/22 [History Last Taken Unknown] famotidine 40 mg tablet 40 mg PO DAILY #30 tabs 06/18/22 [Rx Last Taken Unknown] furosemide 40 mg tablet 10 mg PO DAILY 06/28/22 [History Last Taken Unknown] meclizine 25 mg tablet 25 mg PO PRN PRN Vertigo 06/28/22 [History Last Taken Unknown] amiodarone 100 mg tablet 100 mg PO BID #180 tabs 07/02/22 [Rx Last Taken Unknown] sucralfate 1 gram tablet (Carafate) 1 g PO QAC #90 tabs 07/05/22 [Rx Last Taken Unknown] ascorbic acid (vitamin C) 500 mg tablet 500 mg PO DAILY 07/20/22 [History Last Taken Unknown] amoxicillin 875 mg-potassium clavulanate 125 mg tablet 875 mg PO Q12H #20 TABLETS 07/22/22 [Rx Last Taken Unknown] ondansetron 4 mg disintegrating tablet 8 mg PO Q8H PRN PRN Nausea #20 tabs 07/22/22 [Rx Last Taken Unknown] Allergy/AdvReac Type Severity Reaction Status Date / Time diclofenac Allergy rash Verified 07/22/22 14:17 prednisone Allergy Rash Verified 07/22/22 14:17 Family History Father Cancer Prostate cancer Mother Hypertension Sister Hypertension Surgical History History of back surgery History of back surgery History of cardiac catheterization History of cardioversion (06/18/19) History of coronary artery stent placement (08/04/00) History of electrophysiologic study (08/08/00) History of esophagogastroduodenoscopy (EGD) History of hemorrhoidectomy History of hernia repair History of left heart catheterization (07/17/12) History of Zenaida fundoplication History of radiofrequency ablation procedure for cardiac arrhythmia (11/11/11) Social History household members: none Smoking Status: Never smoker alcohol intake: never substance use type: does not use caffeine: No ROS ROS Narrative No fever chills. No abdominal pain. No shortness of breath. No cough. All review of systems were negative except as mentioned above in the history of present illness and the other review of systems. Vital Signs Vital Signs Vital Signs: 07/22/22 14:15 07/22/22 16:30 07/22/22 17:44 Temperature 36.2 C L 36.4 C L Temperature Source Temporal Oral Pulse Rate 93 78 76 Respiratory Rate 16 20 H 18 Blood Pressure 146/96 H 138/82 H 131/85 H Blood Pressure Mean 112 100 100 Pulse Ox 96 95 93 Oxygen Delivery Method Room Air Room Air Room Air Weight Weight: 67.132 kg Body Mass Index (BMI) 22.5 Physical Exam Const alert and no apparent distress Resp normal respiratory effort, no retractions and no use of accessory muscles Cardio regular rate, regular rhythm, S1 normal heart sound and S2 normal heart sound GI normal to inspection, nondistended, normoactive bowel sounds, soft to palpation, non-tender and non-distended Psych Psych Narrative: Flat affect Results Lab / Micro Data Result Diagrams: 07/22/22 14:50 07/22/22 14:50 Labs: Laboratory Results - last 24 hr 07/22/22 14:50: WBC 7.1, RBC 3.43 L, Hgb 9.3 L, Hct 31.3 L, MCV 91.3, MCH 27.1, MCHC 29.7 L, RDW Std Deviation 57.5 H, RDW Coeff of Pablo 17.1 H, Plt Count 363, MPV 9.3, Immature Gran % (Auto) 1.000 H, Neut % (Auto) 84.0 H, Lymph % (Auto) 6.8 L, [place] % (Auto) 7.2, Eos % (Auto) 0.3, Baso % (Auto) 0.7, Absolute Neuts (auto) 5.9, Absolute Lymphs (auto) 0.48 L, Nucleated RBC % 0, Differential Comment SCANNED 07/22/22 14:50: Sodium 141, Potassium 3.3 L, Chloride 108 H, Carbon Dioxide 26.0, Anion Gap 7, BUN 27 H, Creatinine 1.69 H, Estim Creat Clear Calc 32.55, Est GFR (MDRD) Af Amer 50 L, Est GFR (MDRD) Non-Af 42 L, BUN/Creatinine Ratio 16.0, Glucose 114 H, Calcium 8.1 L, Total Bilirubin 0.60, AST 49 H, ALT 55, Alkaline Phosphatase 74, Troponin I High Sens 21, Total Protein 7.5, Albumin 3.3, Globulin 4.2, Albumin/Globulin Ratio 0.8 L, Lipase 83 07/22/22 14:50: PT 20.5 H, INR 1.8 Micro: Microbiology 07/22/22 14:55 Nasal Secretion SARS-CoV-2 Antigen (Rapid) - Final Rhythm Strip Rhythm Strip: A-fib (afib-flutter) Rate: 80 Ectopy: None Radiology Impression Chest X-Ray 07/22/22 15:15 IMPRESSION: Right sided pneumonia. Electronically Signed: Ted Crocker MD at 16:07 EST Reading Location ID and State: [facility] / [place] , Service support , Assessment & Plan Assessment/Plan (1) Vomiting: PLAN: Intractable nausea and vomiting more dry heaves. As needed Zofran and Compazine Changes H2 asia to PPI Supportive management (2) Debility: PLAN: PT OT evaluate and treat Determine if the patient may require senior living facility or. PLAN: Plan Disposition: To be determined. Patient informed that he will be coming on observation status as his care does not necessitate inpatient medical management. Patient informed that this may potentially lead to a higher co-pay. He said he expressed understanding. He initially wanted to go home but I told him to let us know if he does change his mind. Patient is subsequent been admitted. Charges/Coding Visit Charges OBSV E&M: 93280 Initial observation care L2
== END 2022-07-22 18:49 | disposition home or self-care (01) ==
LOC: ED 17:46 → MS3 18:17
PROVIDERS: Emergency Medicine; PCP Family Medicine
DX: J18.9 Pneumonia, unspecified organism (principal); I48.4 Atypical atrial flutter; N18.32 Chronic kidney disease, stage 3b; E87.6 Hypokalemia; R07.9 Chest pain, unspecified; R11.10 Vomiting, unspecified; D64.9 Anemia, unspecified; I25.10 Atherosclerotic heart disease of native coronary artery without angina pectoris; I25.2 Old myocardial infarction; Z95.5 Presence of coronary angioplasty implant and graft
CPT/HCPCS: 71046; 80053; 83690; 84484; 85025; 85610; 87811; 93005; 96374; 96376; 99285; J7030; J2405

== ENCOUNTER 2022-07-26 15:05 | Outpatient (CLI) | payer MEDICARE, OTHER, SELFPAY ==
[2022-07-26 17:47] LABS: Anion Gap 8 (5-15); BUN 30 mg/dL (7-18); BUN/Creat Ratio 13.8 RATIO (10-20); Calcium,Total 7.5 mg/dL (8.5-10.1); Chloride 106 mmol/L (98-107); Creatinine, Serum 2.18 mg/dL (0.70-1.30); EST Glomerular Filtration Rate 31 mL/min (>60); Est Glom Filt Rate - Afr Amer 38 mL/min (>60); Glucose 108 mg/dL (74-106); Magnesium 2.4 mg/dL (1.6-2.6); Potassium 3.6 mmol/L (3.5-5.1); Sodium Level 140 mmol/L (136-145)
[2022-07-26 17:54] LABS: Hematocrit 28.5 % (40-54); Hemoglobin 8.5 g/dL (13.0-16.5); Mean Corp Hgb Conc 29.8 g/dL (32-36); Mean Corpuscular Hgb 27.1 pg (27.0-32.0); Mean Corpuscular Volume 90.8 fL (80-94); Mean Platelet Vol. 10.2 fl (6.2-12.0); Platelet Count 380 K/mm3 (150-450); RBC Distribution Width CV 17.3 % (11.6-14.6); RBC Distribution Width SD 57.2 fl (35.1-43.9); Red Blood Count 3.14 M/mm3 (4.6-6.2); White Blood Count 8.9 K/mm3 (4.4-11.0)
[2022-07-26 18:19] LABS: Thyroid Stim Hormone (TSH) 2.81 uIU/mL (0.358-3.74)
== END 2022-07-26 23:59 | disposition home or self-care (01) ==
LOC: MFPLAB 15:06
PROVIDERS: PCP Family Medicine; Visit Provider Nurse Practitioner Family
DX: I50.30 Unspecified diastolic (congestive) heart failure (principal); D64.9 Anemia, unspecified; E03.8 Other specified hypothyroidism
CPT/HCPCS: 36415; 80048; 83735; 84443; 85027

== ENCOUNTER → 2022-08-24 | Outpatient (CLI) | payer MEDICARE, OTHER, SELFPAY ==
[2022-08-24 15:44] LABS: Hematocrit 33.2 % (40-54); Hemoglobin 10.1 g/dL (13.0-16.5); Mean Corp Hgb Conc 30.4 g/dL (32-36); Mean Corpuscular Hgb 30.1 pg (27.0-32.0); Mean Corpuscular Volume 98.8 fL (80-94); Mean Platelet Vol. 9.7 fl (6.2-12.0); POSITIVE MORPHOLOGY YES; Platelet Count 328 K/mm3 (150-450); Red Blood Count 3.36 M/mm3 (4.6-6.2); White Blood Count 13.4 K/mm3 (4.4-11.0)
[2022-08-24 16:49] LABS: Anion Gap 7 (5-15); BUN 29 mg/dL (7-18); BUN/Creat Ratio 15.8 RATIO (10-20); Calcium,Total 7.6 mg/dL (8.5-10.1); Chloride 107 mmol/L (98-107); Creatinine, Serum 1.83 mg/dL (0.70-1.30); EST Glomerular Filtration Rate 38 mL/min (>60); Est Glom Filt Rate - Afr Amer 46 mL/min (>60); Glucose 82 mg/dL (74-106); Potassium 3.2 mmol/L (3.5-5.1); Sodium Level 140 mmol/L (136-145); Thyroid Stim Hormone (TSH) 3.57 uIU/mL (0.358-3.74)
[2022-08-24 16:53] LABS: Scan Indicated on CBC? Y/N YES- FLAGS NOTED
[2022-08-24 16:54] LABS: Differential Comment SCANNED
== END | disposition home or self-care (01) ==
LOC: LAB 15:25
PROVIDERS: PCP Family Medicine; Visit Provider Nurse Practitioner Family
DX: Z79.899 Other long term (current) drug therapy (principal); I50.32 Chronic diastolic (congestive) heart failure; N18.9 Chronic kidney disease, unspecified; D63.1 Anemia in chronic kidney disease; Q82.0 Hereditary lymphedema; Z79.01 Long term (current) use of anticoagulants; R53.83 Other fatigue
CPT/HCPCS: 36415; 80048; 83880; 84443; 85027

== ENCOUNTER → 2022-08-27 | Outpatient (CLI) | payer MEDICARE, OTHER, SELFPAY ==
[2022-08-27 14:03] LABS: Anion Gap 5 (5-15); BUN 36 mg/dL (7-18); BUN/Creat Ratio 17.1 RATIO (10-20); Calcium,Total 8.7 mg/dL (8.5-10.1); Chloride 104 mmol/L (98-107); EST Glomerular Filtration Rate 32 mL/min (>60); Est Glom Filt Rate - Afr Amer 39 mL/min (>60); Glucose 83 mg/dL (74-106); Potassium 3.6 mmol/L (3.5-5.1); Sodium Level 139 mmol/L (136-145)
== END | disposition home or self-care (01) ==
LOC: LAB 12:45
PROVIDERS: PCP Family Medicine; Visit Provider Nurse Practitioner Family
DX: R60.0 Localized edema (principal); E87.6 Hypokalemia
CPT/HCPCS: 36415; 80048

== ENCOUNTER → 2022-09-02 | Outpatient (CLI) | payer MEDICARE, OTHER, SELFPAY ==
--- NOTE | 2022-09-02 11:10 | RAD_ITS ---
EXAM: XR CHEST, 2 VIEWS CLINICAL INDICATION: Hx L side pneumonia Jun 2022, sob TECHNIQUE: Frontal and lateral views of the chest. This report was created using [employer] report generation technology. COMPARISON: 06/21/2022 FINDINGS: LUNGS AND PLEURAL SPACES: Unremarkable. No consolidation or edema. No pneumothorax. No effusion. HEART: Unremarkable. Cardiac silhouette not enlarged. MEDIASTINUM: Central airways and mediastinal contour are unremarkable. BONES/JOINTS: Multiple chronic thoracic spine compression deformities with multilevel vertebroplasty changes. SOFT TISSUES: Unremarkable. No significant hiatal hernia appreciated by plain film. RAD/Chest PA and Lateral IMPRESSION: No acute findings in the chest. Electronically Signed: Ted Forbes MD at 23:32 EST ,
[2022-09-02 13:37] LABS: BNP,B-Type NATRIURETIC PEPTIDE 671.6 pg/mL (0-100)
== END | disposition home or self-care (01) ==
PROVIDERS: PCP Family Medicine; Referring Provider Nurse Practitioner Gerontology; Visit Provider Nurse Practitioner Gerontology
DX: I50.32 Chronic diastolic (congestive) heart failure (principal); R06.00 Dyspnea, unspecified; R60.0 Localized edema; N48.32 Priapism due to disease classified elsewhere
CPT/HCPCS: 36415; 71046; 83880

== ENCOUNTER → 2022-09-13 | Outpatient (CLI) | payer MEDICARE, OTHER, SELFPAY | END | disposition home or self-care (01) | LOC: PSN 12:12 | PROVIDERS: PCP Family Medicine; Visit Provider Nurse Practitioner Family | DX: Z79.899 Other long term (current) drug therapy (principal); I48.0 Paroxysmal atrial fibrillation; R53.83 Other fatigue | CPT/HCPCS: 93225; 93226 ==

== ENCOUNTER → 2022-10-19 | Outpatient (CLI) | payer MEDICARE, OTHER, SELFPAY ==
--- NOTE | 2022-10-19 10:20 | RAD_ITS ---
EXAM: XR CHEST, 2 VIEWS CLINICAL INDICATION: dizziness, dullness L base/popsterior, hx effusions TECHNIQUE: Frontal and lateral views of the chest. This report was created using [employer] report generation technology. COMPARISON: None. FINDINGS: LUNGS AND PLEURAL SPACES: Unremarkable. No consolidation or edema. No pneumothorax. No effusion. HEART: Mild enlargement of the cardiac silhouette. MEDIASTINUM: Central airways and mediastinal contour are unremarkable. BONES/JOINTS: Degenerative changes of the spine. Multiple prior vertebroplasties and chronic compression deformities. SOFT TISSUES: Unremarkable. RAD/Chest PA and Lateral IMPRESSION: No acute findings in the chest. Electronically Signed: Ted Forbes MD at 0:48 EST ,
[2022-10-19 12:28] LABS: Erythrocyte Sedimentation Rate 18 mm/hr (0-20)
[2022-10-19 12:31] LABS: Absolute Lymphocyte Count 0.81 X10^3/uL (0.83-4.51); Absolute Neutrophil Count 6.1 X10^3/uL (2.0-7.7); Basophil# 0.08 X10^3/uL; Eosinophil# 0.09 X10^3/uL; Eosinophils% 1.1 % (0-5); Hematocrit 46.8 % (40-54); Hemoglobin 15.4 g/dL (13.0-16.5); Lymphocyte # 0.81 X10^3/ul (0.83-4.51); Lymphocyte % 10.2 % (19-41); Mean Corp Hgb Conc 32.9 g/dL (32-36); Mean Corpuscular Hgb 34.3 pg (27.0-32.0); Mean Corpuscular Volume 104.2 fL (80-94); Monocyte# 0.74 X10^3/uL; Monocyte% 9.4 % (0-10); NRBC Flagged by Analyzer 0 % (0-5); Neutrophil # 6.12 X10^3/uL (2.7-7.7); Neutrophil % 77.4 % (47-70); POSITIVE MORPHOLOGY YES; Platelet Count 318 K/mm3 (150-450); RBC Distribution Width CV 22.2 % (11.6-14.6); RBC Distribution Width SD 86.2 fl (35.1-43.9); Red Blood Count 4.49 M/mm3 (4.6-6.2); White Blood Count 7.9 K/mm3 (4.4-11.0)
[2022-10-19 12:34] LABS: Differential Indicated SCAN CRITERIA MET
[2022-10-19 13:03] LABS: ALB/GLOB Ratio 0.8 RATIO (0.9-2.4); AST(SGOT) 51 U/L (15-37); Alanine Aminotransfer ALT/SGPT 66 U/L (16-61); Albumin, Serum 3.9 g/dL (3.2-5.0); Alkaline Phosphatase 76 U/L (45-117); Anion Gap 9 (5-15); BUN 59 mg/dL (7-18); Calcium,Total 9.5 mg/dL (8.5-10.1); Chloride 107 mmol/L (98-107); Creatinine, Serum 3.27 mg/dL (0.70-1.30); EST Glomerular Filtration Rate 19 mL/min (>60); Est Glom Filt Rate - Afr Amer 24 mL/min (>60); Ferritin 142 ng/mL (26-388); Globulin 4.9 g/dL (2.2-4.2); Glucose 99 mg/dL (74-106); Magnesium 2.5 mg/dL (1.6-2.6); Potassium 4.4 mmol/L (3.5-5.1); Protein, Total 8.8 g/dL (6.4-8.2); Sodium Level 140 mmol/L (136-145); T4 Free Direct 1.37 ng/dL (0.76-1.46); Thyroid Stim Hormone (TSH) 3.82 uIU/mL (0.358-3.74)
[2022-10-19 13:16] LABS: Anisocytosis 2+; Macrocytosis 1+; Microcytosis 1+
== END | disposition home or self-care (01) ==
LOC: MTLAB 10:20
PROVIDERS: PCP Family Medicine; Referring Provider Family Medicine; Visit Provider Family Medicine
DX: J90 Pleural effusion, not elsewhere classified (principal); I50.30 Unspecified diastolic (congestive) heart failure; N18.30 Chronic kidney disease, stage 3 unspecified; R42 Dizziness and giddiness; R79.89 Other specified abnormal findings of blood chemistry; E03.8 Other specified hypothyroidism
CPT/HCPCS: 36415; 71046; 80053; 82140; 82728; 83735; 84439; 84443; 85025; 85652

== ENCOUNTER 2022-10-22 12:33 | Outpatient (RCR) | payer MEDICARE, OTHER, SELFPAY ==
[2022-10-22 13:42] LABS: Prothrombin Time (Protime)PT. 38.8 SECONDS (11.7-14.9)
== END 2022-10-22 18:00 | disposition home or self-care (01) ==
LOC: LAB 12:33
PROVIDERS: PCP Family Medicine; Referring Provider Internal Medicine Cardiovascular Disease; Visit Provider Internal Medicine Cardiovascular Disease
DX: I48.91 Unspecified atrial fibrillation (principal); Z79.01 Long term (current) use of anticoagulants
CPT/HCPCS: 36415; 85610

== ENCOUNTER → 2022-10-28 | Outpatient (CLI) | payer MEDICARE, OTHER, SELFPAY ==
[2022-10-28 18:15] LABS: International Normalized Ratio 2.7
== END | disposition home or self-care (01) ==
LOC: MFPLAB 14:24
PROVIDERS: PCP Family Medicine; Visit Provider Internal Medicine Cardiovascular Disease
DX: I48.0 Paroxysmal atrial fibrillation (principal); Z79.01 Long term (current) use of anticoagulants
CPT/HCPCS: 36415; 85610

== ENCOUNTER 2022-11-24 15:01 | Outpatient (RCR) | payer MEDICARE, OTHER, SELFPAY ==
[2022-11-15 11:02] LABS: International Normalized Ratio 1.8; Prothrombin Time (Protime)PT. 20.6 SECONDS (11.7-14.9)
[2022-11-15 11:23] LABS: Anion Gap 8 (5-15); BUN 58 mg/dL (7-18); BUN/Creat Ratio 18.5 RATIO (10-20); Calcium,Total 9.1 mg/dL (8.5-10.1); Chloride 102 mmol/L (98-107); Creatinine, Serum 3.14 mg/dL (0.70-1.30); EST Glomerular Filtration Rate 20 mL/min (>60); Est Glom Filt Rate - Afr Amer 25 mL/min (>60); Glucose 133 mg/dL (74-106); Potassium 3.4 mmol/L (3.5-5.1); Sodium Level 140 mmol/L (136-145)
[2022-11-24 18:21] LABS: International Normalized Ratio 1.7
== END 2022-11-26 21:11 | disposition home or self-care (01) ==
LOC: MTLAB 15:01
PROVIDERS: Nurse Practitioner Family; PCP Family Medicine; Referring Provider Internal Medicine Cardiovascular Disease; Visit Provider Internal Medicine Cardiovascular Disease
DX: I48.91 Unspecified atrial fibrillation (principal); N18.32 Chronic kidney disease, stage 3b; Z79.01 Long term (current) use of anticoagulants; I48.0 Paroxysmal atrial fibrillation
CPT/HCPCS: 36415; 80048; 85610

== ENCOUNTER → 2022-12-02 | Outpatient (CLI) | payer MEDICARE, OTHER, SELFPAY ==
[2022-12-02 16:01] LABS: Anion Gap 8 (5-15); BUN 40 mg/dL (7-18); BUN/Creat Ratio 15.6 RATIO (10-20); Calcium,Total 9.3 mg/dL (8.5-10.1); Chloride 102 mmol/L (98-107); Creatinine, Serum 2.57 mg/dL (0.70-1.30); EST Glomerular Filtration Rate 26 mL/min (>60); Est Glom Filt Rate - Afr Amer 31 mL/min (>60); Glucose 110 mg/dL (74-106); Potassium 3.6 mmol/L (3.5-5.1); Sodium Level 140 mmol/L (136-145)
== END | disposition home or self-care (01) ==
LOC: LAB 14:37
PROVIDERS: Nurse Practitioner Family; PCP Family Medicine; Referring Provider Internal Medicine Cardiovascular Disease; Visit Provider Internal Medicine Cardiovascular Disease
DX: I12.9 Hypertensive chronic kidney disease with stage 1 through stage 4 chronic kidney disease, or unspecified chronic kidney disease (principal); N18.9 Chronic kidney disease, unspecified
CPT/HCPCS: 36415; 80048

== ENCOUNTER 2022-12-22 13:16 | Outpatient (RCR) | payer MEDICARE, OTHER, SELFPAY ==
[2022-12-03 17:48] LABS: Prothrombin Time (Protime)PT. 22.4 SECONDS (11.7-14.9)
[2022-12-22 15:20] LABS: Absolute Lymphocyte Count 0.55 X10^3/uL (0.83-4.51); Absolute Neutrophil Count 6.4 X10^3/uL (2.0-7.7); Basophil# 0.06 X10^3/uL; Basophil% 0.8 % (0-1); Eosinophil# 0.04 X10^3/uL; Eosinophils% 0.5 % (0-5); Hematocrit 33.9 % (40-54); Hemoglobin 11.4 g/dL (13.0-16.5); Lymphocyte # 0.55 X10^3/ul (0.83-4.51); Mean Corp Hgb Conc 33.6 g/dL (32-36); Mean Corpuscular Hgb 35.8 pg (27.0-32.0); Mean Corpuscular Volume 106.6 fL (80-94); Mean Platelet Vol. 10.5 fl (6.2-12.0); Monocyte# 0.76 X10^3/uL; Monocyte% 9.7 % (0-10); NRBC Flagged by Analyzer 0 % (0-5); Neutrophil # 6.36 X10^3/uL (2.7-7.7); Neutrophil % 81.4 % (47-70); POSITIVE DIFFERENTIAL YES; Platelet Count 272 K/mm3 (150-450); RBC Distribution Width CV 15.1 % (11.6-14.6); RBC Distribution Width SD 59.2 fl (35.1-43.9); Red Blood Count 3.18 M/mm3 (4.6-6.2); White Blood Count 7.8 K/mm3 (4.4-11.0)
[2022-12-22 15:22] LABS: Differential Indicated SCAN CRITERIA MET
[2022-12-22 15:31] LABS: Prothrombin Time (Protime)PT. 22.3 SECONDS (11.7-14.9)
[2022-12-22 15:39] LABS: Differential Comment SCANNED
[2022-12-22 15:46] LABS: Protein, Urine (Random) 19.1 mg/dL (<11.9); Protein:Creat Ratio 191 mg/g CRE (0-200)
[2022-12-22 16:06] LABS: Anion Gap 6 (5-15); BUN 44 mg/dL (7-18); BUN/Creat Ratio 16.1 RATIO (10-20); Calcium,Total 9.2 mg/dL (8.5-10.1); Chloride 102 mmol/L (98-107); Creatinine, Serum 2.73 mg/dL (0.70-1.30); EST Glomerular Filtration Rate 24 mL/min (>60); Est Glom Filt Rate - Afr Amer 29 mL/min (>60); Glucose 94 mg/dL (74-106); Magnesium 2.2 mg/dL (1.6-2.6); Potassium 3.4 mmol/L (3.5-5.1); Sodium Level 136 mmol/L (136-145)
[2022-12-22 16:11] LABS: Albumin, Serum 3.2 g/dL (3.2-5.0); BUN 43 mg/dL (7-18); BUN/Creat Ratio 15.6 RATIO (10-20); Chloride 103 mmol/L (98-107); Creatinine, Serum 2.75 mg/dL (0.70-1.30); EST Glomerular Filtration Rate 24 mL/min (>60); Est Glom Filt Rate - Afr Amer 29 mL/min (>60); Glucose 92 mg/dL (74-106); Phosphorus 3.6 mg/dL (2.5-4.9); Potassium 3.4 mmol/L (3.5-5.1); Sodium Level 137 mmol/L (136-145)
[2022-12-22 16:21] LABS: T4 Free Direct 1.38 ng/dL (0.76-1.46); Thyroid Stim Hormone (TSH) 4.02 uIU/mL (0.358-3.74)
[2022-12-22 16:24] LABS: Vitamin D,25 Hydroxy 43.4 ng/mL
[2022-12-23 08:28] LABS: PTHIN 75.9 pg/mL (18.4-80.1)
== END 2022-12-26 01:36 | disposition home or self-care (01) ==
LOC: LAB 13:16
PROVIDERS: Internal Medicine Nephrology; Nurse Practitioner Family; PCP Family Medicine; Referring Provider Internal Medicine Cardiovascular Disease; Visit Provider Internal Medicine Cardiovascular Disease
DX: N18.32 Chronic kidney disease, stage 3b; Z79.01 Long term (current) use of anticoagulants; I48.0 Paroxysmal atrial fibrillation; E87.6 Hypokalemia; E03.8 Other specified hypothyroidism
CPT/HCPCS: 36415; 80048; 80069; 82306; 82570; 83735; 83970; 84156; 84439; 84443; 84481; 85025; 85610

== ENCOUNTER → 2022-12-30 | Outpatient (CLI) | payer MEDICARE, OTHER, SELFPAY ==
--- NOTE | 2022-12-30 15:43 | RAD_ITS ---
INDICATION: cough, chest pain, difficulty swallowing, known large Hiatal jacob EXAMINATION/TECHNIQUE: X-RAY - XR Chest 2 Views COMPARISON: 10/19/2022. FINDINGS: The lungs are clear. Tortuous and calcified thoracic aorta. The heart is borderline enlarged. No pleural effusion or pneumothorax. Degenerative changes of the thoracic spine. Multilevel vertebral augmentation. Hiatal hernia. RAD/Chest PA and Lateral IMPRESSION: No acute radiographic abnormalities. Electronically Signed: Tai Bryant MD at 16:57 EDT ,
[2022-12-30 18:32] LABS: BUN 32 mg/dL (7-18); Creatinine, Serum 2.54 mg/dL (0.70-1.30); EST Glomerular Filtration Rate 26 mL/min (>60); Est Glom Filt Rate - Afr Amer 31 mL/min (>60); Glucose 96 mg/dL (74-106)
[2022-12-30 18:33] LABS: Anion Gap 11 (5-15); BUN/Creat Ratio 12.6 RATIO (10-20); Calcium,Total 9.2 mg/dL (8.5-10.1); Chloride 105 mmol/L (98-107); Magnesium 2.2 mg/dL (1.6-2.6); Potassium 3.4 mmol/L (3.5-5.1); Sodium Level 140 mmol/L (136-145)
== END | disposition home or self-care (01) ==
LOC: MTRAD 15:43
PROVIDERS: PCP Family Medicine; Referring Provider Family Medicine; Visit Provider Family Medicine
DX: R07.89 Other chest pain (principal); E87.6 Hypokalemia
CPT/HCPCS: 36415; 71046; 80048; 83735

== ENCOUNTER → 2022-12-31 | Outpatient (CLI) | payer MEDICARE, OTHER, SELFPAY ==
--- NOTE | 2022-12-31 09:44 | CT_ITS ---
STUDY: CT CHEST WITHOUT CONTRAST REASON FOR EXAM: Male, 82 years old. Chest wall pain and dysphagia. hx large HH. possible paraesopha RADIATION DOSAGE (If Supplied By Facility): CTDIvol = ( 11.91 ) mGy, DLP = ( 440.39 ) mGycm TECHNIQUE: Transaxial imaging was performed without the administration of intravenous contrast material. Multiplanar coronal and sagittal images were reformatted. Individualized dose optimization techniques were used for this CT. COMPARISON: Comparison is made with prior examination dated December 10, 2020. FINDINGS: CHEST Stable mild scarring at the lung bases. Small calcified pleural plaque in the posterior medial segment of the right lower lung. The left atrium is enlarged. There are calcifications of the coronary arteries. There are multiple small lymph nodes within the mediastinum, which are normal in size and morphology most compatible with reactive lymph hyperplasia. Normal hilar regions. Normal unenhanced pulmonary arteries. There is atherosclerotic calcification of the aortic arch with tortuosity and elongation of the aortic arch and descending thoracic aorta. Stable dilatation of the root of the ascending thoracic aorta with a transverse dimension of 4.4 cm. There is demineralization of the thoracic spine. Increased kyphosis. 60% loss of height of a mid dorsal vertebra. Loss of height of multiple lower thoracic vertebrae and upper lumbar vertebrae with evidence of prior vertebroplasty. There is evidence of a partial subtotal gastrectomy. No significant hiatal hernia is seen. Multiple bilateral renal cysts. Calcified splenic granulomas. CT/Chest without Contrast IMPRESSION: Stable examination. Electronically Signed: Wilfred Milligan MD at 10:34 EDT ,
== END | disposition home or self-care (01) ==
LOC: CT 09:42
PROVIDERS: PCP Family Medicine; Referring Provider Family Medicine; Visit Provider Family Medicine
DX: R07.89 Other chest pain (principal)
CPT/HCPCS: 71250

== ENCOUNTER 2023-01-04 22:10 | Emergency (ER) | payer MEDICARE, OTHER, SELFPAY ==
[2023-01-04 22:11] VITALS: BP 135/98; PULSE 90; RESP 15; TEMP 36.1; O2SAT 97; BMI 22.3
--- NOTE | 2023-01-04 22:23 | EKG12_ITS ---
Test Reason : CP Blood Pressure : / mmHG Vent. Rate : 087 BPM Atrial Rate : 214 BPM P-R Int : 000 ms QRS Dur : 102 ms QT Int : 434 ms P-R-T Axes : 000 031 039 degrees QTc Int : 522 ms Atrial flutter with variable A-V block Prolonged QT Abnormal ECG Confirmed by JOSE KASPER, JESSICA ([id number]), news videotape editor CIPRIANO GATES ([id number]) on 01/05/2023 1:00:22 PM Referred By: ANYA Confirmed By:CAM GARCIA MD
[2023-01-04 22:49] LABS: Absolute Lymphocyte Count 0.59 X10^3/uL (0.83-4.51); Absolute Neutrophil Count 14.3 X10^3/uL (2.0-7.7); Basophil# 0.05 X10^3/uL; Basophil% 0.3 % (0-1); Eosinophil# 0.01 X10^3/uL; Eosinophils% 0.1 % (0-5); Hematocrit 35.3 % (40-54); Lymphocyte # 0.59 X10^3/ul (0.83-4.51); Lymphocyte % 3.6 % (19-41); Mean Corpuscular Hgb 36.7 pg (27.0-32.0); Mean Platelet Vol. 9.7 fl (6.2-12.0); Monocyte# 1.23 X10^3/uL; Monocyte% 7.4 % (0-10); NRBC Flagged by Analyzer 0.1 % (0-5); Neutrophil % 86.4 % (47-70); POSITIVE DIFFERENTIAL YES; POSITIVE MORPHOLOGY YES; Platelet Count 335 K/mm3 (150-450); RBC Distribution Width CV 16.7 % (11.6-14.6); Red Blood Count 3.27 M/mm3 (4.6-6.2); White Blood Count 16.5 K/mm3 (4.4-11.0)
--- NOTE | 2023-01-04 22:50 | RAD_ITS ---
INDICATION: chest pain EXAMINATION/TECHNIQUE: X-RAY - XR Chest 1 View COMPARISON: December 30, 2022 chest x-ray FINDINGS: LINES/DEVICES: None. LUNGS: Symmetric normal lung volumes. No airspace opacity or abnormal interstitial pattern. No nodule or mass. No pleural effusion or pneumothorax. MEDIASTINUM AND CARDIOVASCULAR STRUCTURES: Normal size and contour of the cardiomediastinal silhouette. No evidence of pulmonary vascular congestion. BONES AND SOFT TISSUES: No fracture or focal osseous lesion. Multilevel kyphoplasties are noted. RAD/Chest 1 View (Portable) IMPRESSION: 1. No radiographic evidence of acute cardiopulmonary disease. Electronically Signed: [place] Harris DO at 23:27 EDT ,
[2023-01-04 22:53] LABS: Differential Indicated SCAN CRITERIA MET
[2023-01-04 23:10] LABS: Anion Gap 10 (5-15); BUN 43 mg/dL (7-18); BUN/Creat Ratio 16.6 RATIO (10-20); Calcium,Total 8.9 mg/dL (8.5-10.1); Chloride 106 mmol/L (98-107); Creatinine, Serum 2.59 mg/dL (0.70-1.30); EST Glomerular Filtration Rate 25 mL/min (>60); Est Glom Filt Rate - Afr Amer 31 mL/min (>60); Glucose 139 mg/dL (74-106); Potassium 3.4 mmol/L (3.5-5.1); Sodium Level 140 mmol/L (136-145); Troponin-I HS (w/2H Reflex) 32 pg/mL (3.0-78.0)
[2023-01-04 23:17] VITALS: BMI 22.6
[2023-01-04] MEDS: Orphenadrine 60 MG/2 ML Ampul IV (23:37)
[2023-01-05 00:13] VITALS: PULSE 78; RESP 20; O2SAT 92
[2023-01-05 00:15] LABS: Prothrombin Time (Protime)PT. 22.6 SECONDS (11.7-14.9)
[2023-01-05 00:58] LABS: Troponin-I HS 30 pg/mL (3.0-78.0)
[2023-01-05 01:12] VITALS: BP 146/95; PULSE 74; RESP 16; O2SAT 97
--- NOTE | 2023-01-05 01:13 | EX.ED.DYSGE1 ---
HPI History of Present Illness Chief Complaint: Chest Other Narrative Narrative: Patient is an 82-year-old male with past medical history of chronic kidney disease CAD chronic atrial fibrillation and congestive heart failure. He states he has been having lower chest/upper abdominal pain for weeks. He was seen 4 to 5 days ago and had blood work and a CT scan obtained. Labs revealed no clinically significant changes from his baseline and CT scan showed chronic findings without new or acute changes. Patient states he was placed on steroids/dexamethasone as well as a muscle relaxer but symptoms have not improved and with this he presents for evaluation. [facility] Medical History (Updated 01/05/23 @ 03:[address] John Gallagher, DO) Acute diverticulitis of intestine Acute gastrointestinal bleeding Acute kidney injury superimposed on chronic kidney disease Ambulates with cane Anemia Arthritis Atherosclerotic heart disease of [place] coronary artery without angina pectoris Atrial fibrillation Atypical atrial flutter (12/2020) Back pain Benign prostatic hyperplasia BPH (benign prostatic hyperplasia) Cancer Cardiology follow-up encounter Chronic anemia Chronic heart failure with preserved ejection fraction (HFpEF) Chronic kidney disease Chronic renal insufficiency Colitis CPAP (continuous positive airway pressure) dependence Debility Diarrhea Difficulty chewing Dysphagia Easy bruising Elevated LFTs Elevated liver enzymes Essential (primary) hypertension Excessive bleeding Gastric reflux GI bleed (2012) High cholesterol History of atrial fibrillation History of colon polyps History of diverticulitis History of echocardiogram History of edema History of heart attack History of hyperthyroidism History of leukemia History of pain when walking History of renal disease History of stress test HLD (hyperlipidemia) Hypertension Kidney disease Kidney stones Myocardial infarct Nausea and vomiting Non-rheumatic tricuspid valve insufficiency Non-smoker Nonrheumatic mitral (valve) insufficiency 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 Osteoarthritis Paroxysmal atrial fibrillation Secondary pulmonary arterial hypertension Sleep apnea Sleep apnea Stage 3b chronic kidney disease Thoracic aortic aneurysm (TAA) Thyroid disease Wears glasses Home Medications denosumab 60 mg/mL subcutaneous syringe (Prolia) 60 mg SQ .[id number] BONES 12/09/20 [History Last Taken 3 Months Ago ~11/24/21] ipratropium bromide 21 mcg (0.03 %) nasal spray 2 spray intranasal PRN PRN SOB 05/06/21 [History Last Taken 02/23/22] tamsulosin 0.4 mg capsule 0.4 mg PO QHS bladder 11/18/21 [History Last Taken 02/24/22] warfarin 2 mg tablet See Rx Instructions .Route .COMPLEX blood thinner 11/18/21 [History Last Taken 06/28/22] levothyroxine 25 mcg tablet 25 mcg PO DAILY 02/17/22 [History Last Taken 06/30/22 08:00] baclofen 5 mg tablet 5 mg PO TID PRN muscle spasms 05/01/22 [History Last Taken Unknown] coenzyme Q10 100 mg capsule (Co Q-10) 100 mg PO DAILY 05/01/22 [History Last Taken Unknown] pantoprazole 40 mg tablet,delayed release 40 mg PO DAILY 05/01/22 [History Last Taken 06/30/22 08:00] vitamin B complex 1 cap PO BID 05/01/22 [History Last Taken Unknown] metoprolol tartrate 25 mg tablet 12.5 mg PO BID #90 tabs 06/10/22 [Rx Last Taken 06/30/22 08:00] acetaminophen 500 mg capsule 1,000 mg PO Q6H PRN Pain 06/15/22 [History Last Taken Unknown] linaclotide 72 mcg capsule (Linzess) 72 mcg PO DAILY PRN Diarrhea 06/15/22 [History Last Taken Unknown] ascorbic acid (vitamin C) 500 mg tablet 500 mg PO DAILY 07/20/22 [History Last Taken Unknown] finasteride 5 mg tablet 5 mg PO DAILY 08/05/22 [History Last Taken Unknown] amiodarone 100 mg tablet 100 mg PO BID #180 tabs 08/09/22 [Rx Last Taken Unknown] loratadine 10 mg capsule 10 mg PO DAILY 08/16/22 [History Last Taken Unknown] multivitamin 1 tab PO DAILY 08/16/22 [History Last Taken Unknown] isosorbide mononitrate 30 mg tablet,extended release 24 hr 30 mg PO BID #180 tabs 09/22/22 [Rx Last Taken Unknown] potassium chloride 10 mEq tablet,extended release 10 meq PO DAILY #60 tabs 10/14/22 [Rx Last Taken Unknown] sucralfate 1 gram tablet (Carafate) 1 g PO QAC #90 tabs 10/21/22 [Rx Last Taken Unknown] famotidine 40 mg tablet 40 mg PO DAILY #30 tabs 10/29/22 [Rx Last Taken Unknown] warfarin 4 mg tablet See Rx Instructions .Route .COMPLEX 11/23/22 [History Last Taken Unknown] furosemide 40 mg tablet 60 mg PO DAILY PRN Weight Gain 11/25/22 [History Last Taken Unknown] ondansetron HCl 4 mg tablet 4 mg PO Q8H PRN Nausea And Vomiting 11/26/22 [History Last Taken Unknown] diltiazem HCl 120 mg capsule,extended release 24 hr 120 mg PO BID heart #60 caps 11/30/22 [Rx Last Taken Unknown] baclofen 10 mg tablet 10 mg PO TID PRN Muscle Spasm 12/31/22 [History Last Taken Unknown] dexamethasone 6 mg tablet 6 mg PO DAILY 12/31/22 [History Last Taken Unknown] oxycodone-acetaminophen 5 mg-325 mg tablet (Percocet) 1 tab PO Q6H PRN pain 3 days #12 tabs 01/05/23 [Rx Last Taken Unknown] Allergy/AdvReac Type Severity Reaction Status Date / Time diclofenac Allergy rash Verified 01/04/23 22:15 prednisone Allergy Rash Verified 01/04/23 22:15 Family History Father Cancer Prostate cancer Mother Hypertension Sister Hypertension Surgical History History of back surgery History of back surgery History of cardiac catheterization History of cardioversion (06/18/19) History of coronary artery stent placement (08/04/00) History of electrophysiologic study (08/08/00) History of esophagogastroduodenoscopy (EGD) History of hemorrhoidectomy History of hernia repair History of left heart catheterization (07/17/12) History of Zenaida fundoplication History of radiofrequency ablation procedure for cardiac arrhythmia (11/11/11) Social History household members: none Smoking Status: Never smoker alcohol intake: never substance use type: does not use caffeine: No ROS ROS ED Constitutional Constitutional ED: Denies chills or fever(s) ENT ENT ED: Denies sore throat Cardiovascular Cardiovascular: Reports chest pain and palpitations; Denies racing heartbeat Respiratory/Chest Respiratory/Chest: Denies cough or dyspnea Gastrointestinal Gastrointestinal: Reports abdominal pain; Denies diarrhea, nausea or vomiting Genitourinary Genitourinary ED: Denies dysuria Musculoskeletal Musculoskeletal: Denies back pain or myalgias Integumentary Denies rash Neurologic Neurologic: Denies headache(s) Hematologic/Lymphatic Hematologic/Lymphatic: Reports easy bleeding and easy bruising EXAM Physical Exam Const Vital Signs: 01/04/23 22:11 01/04/23 23:14 01/05/23 00:13 Temperature 97.0 F L Temperature Source Temporal Pulse Rate 90 78 Respiratory Rate 15 20 H Blood Pressure 135/98 H Blood Pressure Mean 110 Pulse Ox 97 92 Oxygen Delivery Method Room Air Room Air Room Air 01/05/23 01:12 Temperature Temperature Source Pulse Rate 74 Respiratory Rate 16 Blood Pressure 146/95 H Blood Pressure Mean Pulse Ox 97 Oxygen Delivery Method Positive well nourished and well developed General Appearance ED: well developed HEENT Reports moist mucous membranes Eyes PERRL and EOMs intact bilaterally General Eye ED: Negative for scleral icterus Neck supple Chest Wall Chest Narrative: Along the left anterior lateral lower portion of the chest wall/rib regions 10-12 there is reproducible pain without bony deformity or crepitance. This is the same pain the patient states he has been experiencing. Resp normal respiratory effort and clear to auscultation bilaterally Cardio regular rate Rate: other Other Details: Irregularly irregular rhythm with regular rate GI normal to inspection, nondistended, normoactive bowel sounds, non-tender, non-distended and no masses GI Narrative: No voluntary guarding or rigidity no pulsatile mass Auscultation: normoactive bowel sounds Palpation: soft Extremity normal to inspection Neuro oriented x3 and CN's II-XII intact bilaterally Sensorium / Orientation: alert Psych mental status grossly normal Skin no rashes or lesions noted Skin Narrative: No secondary changes to suggest trauma or infection General Skin Exam: Negative for jaundice MDM MDM MDM Narrative Medical decision making narrative: Patient presented to the ER with persistent pain for the past 1 to 2 weeks and has already had a work-up in the last 4 to 5 days. The pain is in the left chest wall over top the ribs and chart review reveals he had a CT of the chest obtained and therefore do not feel there is need to repeat a CT scan of the chest or of the abdomen. He does have risk factors for CAD however and therefore a initial and delta troponin will be obtained. Blood work showed his white count is not elevated at 16.5 but he has been on steroids which would explain this elevation. He also has no midepigastric pain to suggest pancreatitis and no overlying bruising that would suggest splenic injury and no rash to suggest shingles. Patient's INR is therapeutic at 2.0 and therefore do not feel that a PE is high in the differential. Patient's chest x-ray revealed no acute findings his initial troponin was 32 and the 2-hour delta decreased down to 30 indicating this is not cardiac. This fits the exam as there is reproducible pain with palpation along the left anterior chest wall indicating this is most likely musculoskeletal. Therefore patient be treated for pain and is otherwise safe for discharge as work-up is negative and there are no signs of acute coronary syndrome based on EKG or blood work History & Record Review Discussion w/independent historian: Patient Lab Data Attestation: I reviewed the patient's lab results. Labs: Laboratory Results - last 24 hr 01/04/23 01/04/23 01/04/23 22:42 22:42 23:43 WBC 16.5 H RBC 3.27 L Hgb 12.0 L Hct 35.3 L MCV 108.0 H MCH 36.7 H MCHC 34.0 RDW Std Deviation 66.0 H RDW Coeff of Pablo 16.7 H Plt Count 335 MPV 9.7 Immature Gran % (Auto) 2.200 H Neut % (Auto) 86.4 H Lymph % (Auto) 3.6 L [place] % (Auto) 7.4 Eos % (Auto) 0.1 Baso % (Auto) 0.3 Absolute Neuts (auto) 14.3 H Absolute Lymphs (auto) 0.59 L Nucleated RBC % 0.1 Differential Comment PT 22.6 H INR 2.0 Sodium 140 Potassium 3.4 L Chloride 106 Carbon Dioxide 24.0 Anion Gap 10 BUN 43 H Creatinine 2.59 H Estim Creat Clear Calc 21.10 Est GFR (MDRD) Af Amer 31 L Est GFR (MDRD) Non-Af 25 L BUN/Creatinine Ratio 16.6 Glucose 139 H Calcium 8.9 Troponin I High Sens 32 01/05/23 00:30 WBC RBC Hgb Hct MCV MCH MCHC RDW Std Deviation RDW Coeff of Pablo Plt Count MPV Immature Gran % (Auto) Neut % (Auto) Lymph % (Auto) [place] % (Auto) Eos % (Auto) Baso % (Auto) Absolute Neuts (auto) Absolute Lymphs (auto) Nucleated RBC % Differential Comment PT INR Sodium Potassium Chloride Carbon Dioxide Anion Gap BUN Creatinine Estim Creat Clear Calc Est GFR (MDRD) Af Amer Est GFR (MDRD) Non-Af BUN/Creatinine Ratio Glucose Calcium Troponin I High Sens 30 Radiography Diagnostic Testing: Clinical Impression(s) from Imaging Studies Chest X-Ray 01/04/23 22:50 IMPRESSION: 1. No radiographic evidence of acute cardiopulmonary disease. 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, Atrial fibrillation Instructions: ED Strain Chest Wall Prescriptions: New oxycodone-acetaminophen [Percocet] 5-325 mg tablet 1 tab PO Q6H PRN (Reason: pain) 3 Days Qty: 12 0RF No Action tamsulosin 0.4 mg capsule 0.4 mg PO QHS levothyroxine 25 mcg tablet 25 mcg PO DAILY Label Comments: take 1 tablet by mouth once daily acetaminophen 500 mg capsule 1,000 mg PO Q6H PRN (Reason: Pain) Linzess 72 mcg capsule 72 mcg PO DAILY PRN (Reason: Diarrhea) ascorbic acid (vitamin C) 500 mg tablet 500 mg PO DAILY finasteride 5 mg tablet 5 mg PO DAILY Prolia 60 MG/ML syringe 60 mg SQ .[id number] ipratropium bromide 21 mcg (0.03 %) [place],Non-Aerosol 2 spray INTRANASAL PRN PRN (Reason: SOB) warfarin 2 mg tablet See Rx Instructions .ROUTE .COMPLEX Protocol: Dose Management Condition: Tuesday Dose/Route: 4 mg Instruction: 1 x 4 mg tablet Condition: Tuesday Dose/Route: 4 mg Instruction: 1 x 4 mg tablet Condition: Tuesday Dose/Route: 4 mg Instruction: 1 x 4 mg tablet Condition: Tuesday Dose/Route: 2 mg Instruction: 1 x 2 mg tablet Condition: Dose/Route: 4 mg Instruction: 1 x 4 mg tablet Condition: Tuesday Dose/Route: 2 mg Instruction: 1 x 2 mg tablet Condition: Tuesday Dose/Route: 2 mg Instruction: 1 x 2 mg tablet Protocol Text: Adjustment Start Date: Tuesday12/22/22 INR Value: 2.0 INR Date: 12/22/22 Recheck Date: 01/05/23 Label Comments: Adjustment 01/03. Pt to take 2mg Wednesday 01/03, 2mg Thursday 01/04. Retest 01/05. Rx Instructions: 2 mg orally Tue, Tuesday and Tue pantoprazole 40 mg Tablet,Delayed Release (Dr/Ec) 40 mg PO DAILY vitamin B complex Capsule 1 cap PO BID coenzyme Q10 [Co Q-10] 100 mg Capsule 100 mg PO DAILY baclofen 5 mg Tablet 5 mg PO TID PRN (Reason: muscle spasms) multivitamin Tablet 1 tab PO DAILY loratadine 10 mg Capsule 10 mg PO DAILY warfarin 4 mg Tablet See Rx Instructions .ROUTE .COMPLEX Protocol: Dose Management Condition: Tuesday Dose/Route: 4 mg Instruction: 1 x 4 mg tablet Condition: Tuesday Dose/Route: 4 mg Instruction: 1 x 4 mg tablet Condition: Tuesday Dose/Route: 4 mg Instruction: 1 x 4 mg tablet Condition: Tuesday Dose/Route: 2 mg Instruction: 1 x 2 mg tablet Condition: Dose/Route: 4 mg Instruction: 1 x 4 mg tablet Condition: Tuesday Dose/Route: 2 mg Instruction: 1 x 2 mg tablet Condition: Tuesday Dose/Route: 2 mg Instruction: 1 x 2 mg tablet Protocol Text: Adjustment Start Date: Tuesday12/22/22 INR Value: 2.0 INR Date: 12/22/22 Recheck Date: 01/05/23 Rx Instructions: 4mg Tue, Tue, , Next INR 4/3 ondansetron HCl [Zofran] 4 mg Tablet 4 mg PO Q8H PRN (Reason: Nausea And Vomiting) baclofen 10 mg tablet 10 mg PO TID PRN (Reason: Muscle Spasm) dexamethasone 6 mg Tablet 6 mg PO DAILY Rx Instructions: 1 6mg tablet daily for 4 days, 1/2 tablet for 4 days. metoprolol tartrate 25 mg tablet 12.5 mg PO BID Qty: 90 3RF amiodarone 100 mg tablet 100 mg PO BID Qty: 180 3RF isosorbide mononitrate 30 mg tablet extended release 24 hr 30 mg PO BID Qty: 180 3RF potassium chloride 10 mEq tablet extended release 10 meq PO DAILY Qty: 60 11RF sucralfate [Carafate] 1 gram tablet 1 g PO QAC Qty: 90 0RF Rx Instructions: take two hours away from other medication. famotidine 40 mg tablet 40 mg PO DAILY Qty: 30 3RF furosemide 40 mg tablet 60 mg PO DAILY PRN (Reason: Weight Gain) Rx Instructions: as needed for weight gain of 3# in one day diltiazem HCl 120 mg capsule,extended release 24hr 120 mg PO BID Qty: 60 11RF Primary Care Provider: César Chinchilla Referrals: César Chinchilla MD [Primary Care Provider] - Disposition Disposition: Home, Self Care Discharge Date/Time: 01/05/23 01:25
[2023-01-05] MEDS: oxyCODONE 5 MG Tablet PO (01:24)
== END 2023-01-05 01:25 | disposition home or self-care (01) ==
PROVIDERS: Emergency Provider Emergency Medicine; PCP Family Medicine; Visit Provider Emergency Medicine
DX: R07.89 Other chest pain (principal); I13.0 Hypertensive heart and chronic kidney disease with heart failure and stage 1 through stage 4 chronic kidney disease, or unspecified chronic kidney disease; I50.32 Chronic diastolic (congestive) heart failure; I48.0 Paroxysmal atrial fibrillation; N18.32 Chronic kidney disease, stage 3b; I25.10 Atherosclerotic heart disease of native coronary artery without angina pectoris; E78.5 Hyperlipidemia, unspecified; Z79.01 Long term (current) use of anticoagulants; N40.0 Benign prostatic hyperplasia without lower urinary tract symptoms; K21.9 Gastro-esophageal reflux disease without esophagitis; Z95.5 Presence of coronary angioplasty implant and graft
CPT/HCPCS: 71045; 80048; 84484; 85025; 85610; 93005; 96374; 99285; J7030; A4216

== ENCOUNTER → 2023-01-19 | Outpatient (CLI) | payer MEDICARE, OTHER, SELFPAY ==
[2023-01-19 18:02] LABS: International Normalized Ratio 2.2; Prothrombin Time (Protime)PT. 24.2 SECONDS (11.7-14.9)
[2023-01-27 17:07] LABS: Pancreatic Elastase, Fecal 81 (>200)
== END | disposition home or self-care (01) ==
PROVIDERS: Internal Medicine Gastroenterology; PCP Family Medicine; Visit Provider Internal Medicine Cardiovascular Disease
DX: Z79.01 Long term (current) use of anticoagulants (principal); I48.0 Paroxysmal atrial fibrillation
CPT/HCPCS: 36415; 82653; 85610

== ENCOUNTER 2023-01-20 16:56 | Outpatient (CLI) | payer MEDICARE, OTHER, SELFPAY | END 2023-01-20 23:59 | disposition home or self-care (01) | LOC: LABSPEC 16:59 | PROVIDERS: PCP Family Medicine; Visit Provider Family Medicine | DX: Z00.00 Encounter for general adult medical examination without abnormal findings (principal) ==

== ENCOUNTER 2023-01-25 12:48 | Outpatient (RCR) | payer MEDICARE, OTHER, SELFPAY ==
[2023-01-25 15:11] LABS: International Normalized Ratio 1.9; Prothrombin Time (Protime)PT. 21.6 SECONDS (11.7-14.9)
== END 2023-01-25 13:48 | disposition home or self-care (01) ==
LOC: MTLAB 12:48
PROVIDERS: PCP Family Medicine; Referring Provider Internal Medicine Cardiovascular Disease; Visit Provider Internal Medicine Cardiovascular Disease
DX: Z79.01 Long term (current) use of anticoagulants; I48.0 Paroxysmal atrial fibrillation
CPT/HCPCS: 36415; 85610

== ENCOUNTER → 2023-01-25 | Outpatient (CLI) | payer MEDICARE, OTHER, SELFPAY ==
--- NOTE | 2023-01-25 12:37 | RAD_ITS ---
STUDY: X-RAY - SACRUM/COCCYX REASON FOR EXAM: Male, 82 years old. Acute low back pain. TECHNIQUE: 3 view(s) of the sacrum and coccyx were obtained. COMPARISON: None. FINDINGS: Osteopenia. Mild arthrosis of both sacroiliac joints. Mild arthrosis of the symphysis pubis. Mild arthrosis of both hips. Postsurgical changes of lumbosacral spinal fusion with laminectomies. Diffuse moderate lumbosacral spondylosis and changes of vertebroplasty in the L1 vertebral body. Clips projected over the region of the gallbladder. RAD/Sacrum-Coccyx min 2 Views IMPRESSION: Osteopenia with osteoarthritic changes. No acute abnormality. Electronically Signed: Ang Bauer MD at 13:25 EDT ,
--- NOTE | 2023-01-25 12:45 | RAD_ITS ---
STUDY: X-RAY - LUMBOSACRAL SPINE REASON FOR EXAM: Male, 82 years old. Acute low back pain. TECHNIQUE: 6 view(s) of the lumbosacral spine, including lateral flexion and extension views, were obtained. COMPARISON: September 2021. FINDINGS: Marked osteopenia, unchanged. Anterolisthesis of L3 on L2 and L4 on L3, unchanged. Endplate concavities compatible with osteoporosis, unchanged. Stable anterior wedge compression deformity of the T12 vertebral body. Kyphoplasty changes of T12 and L1, unaltered. Laminectomy changes unaltered. Stable arthrosis of both sacroiliac joints. Stable marked vascular calcification. RAD/L/S Spine w Bend Min 6 Vw IMPRESSION: Stable osteopenia, findings of osteoporosis, anterior wedge compression deformity of T12 and diffuse moderate to marked lumbosacral spondylosis. No new finding. Electronically Signed: Ang Bauer MD at 14:49 EDT ,
== END | disposition home or self-care (01) ==
PROVIDERS: PCP Family Medicine; Referring Provider Family Medicine; Visit Provider Family Medicine
DX: M54.50 Low back pain, unspecified (principal); I48.0 Paroxysmal atrial fibrillation; N18.32 Chronic kidney disease, stage 3b; Z79.01 Long term (current) use of anticoagulants
CPT/HCPCS: 36415; 72114; 72220; 85610

== ENCOUNTER → 2023-01-29 | Outpatient (CLI) | payer MEDICARE, OTHER, SELFPAY ==
--- NOTE | 2023-01-29 09:31 | CT_ITS ---
STUDY: CT LUMBAR SPINE WITHOUT CONTRAST REASON FOR EXAM: Male, 82 years old. Lumbar and sacrum pain, x-rays non concerning. RADIATION DOSAGE (If Supplied By Facility): CTDIvol = ( 13.82 ) mGy, DLP = ( 556.89 ) mGycm TECHNIQUE: The patient was scanned in a multi detector CT scanner. High resolution transaxial imaging was performed. Images were obtained from the upper T11 to coccyx. Sagittal and coronal images were reconstructed. Individualized dose optimization techniques were used for this CT. COMPARISON: CT abdomen and pelvis without contrast 05/08/2022. FINDINGS: Normal lumbar lordosis. Mild levoscoliosis of the lumbar spine is unchanged. PMMA casts inside T12 and L1 vertebral bodies from previous kyphoplasty are unchanged. No suspicious acute fractures of the lumbar spine. T11-T12: Normal endplates. Normal disc height and morphology. Normal facet joints. Normal central canal and bilateral lateral recesses. Normal bilateral intervertebral neural foramina. T12-L1: Anterior wedge compression fracture of the lower T12 vertebral body is unchanged. PMMA casts inside the T12 and L1 vertebral bodies previous kyphoplasty are unchanged. Increased disc space height due to the anterior wedge compression fracture of the lower T12 vertebral body. No ventral extradural defect. Normal facet joints. Normal central canal and bilateral lateral recesses. Normal bilateral intervertebral neural foramina. L1-2: Mild central compression fracture deformity of the L1 inferior endplate is unchanged. Normal L2 superior endplate. Increased central disc space height. Mild degenerative retrolisthesis of L1 on L2 is unchanged. No significant facet arthropathy. Normal central canal and bilateral lateral recesses. Normal bilateral intervertebral neural foramina. L2-3: Moderate disc space height narrowing is unchanged. Mild degenerative retrolisthesis of L2 on L3 is unchanged. Mild bilateral degenerative facet arthropathy. Normal central canal and bilateral lateral recesses. Moderate stenosis of the right intervertebral neural foramen is unchanged. Normal left intervertebral neural foramen. L3-4: Minimal central compression fracture deformities of the adjacent anterior vertebral endplates. They are unchanged. Pronounced posterior disc space height narrowing. Mild calcification of the posterior bulging annulus is unchanged. Mild asymmetric degenerative facet arthropathy. Normal central canal. Mild stenosis of the left lateral recess. Normal right lateral recess. Mild stenosis of the bilateral intervertebral neural foramina are unchanged. L4-5: Normal endplates. Normal disc height. Postsurgical absence of the spinous processes and lamina. Moderate asymmetric degenerative facet arthropathy. Normal central canal and bilateral lateral recesses. Mild stenosis of the left intervertebral neural foramen is unchanged. Normal right intervertebral neural foramen. L5-S1: Normal endplates. Normal disc height and morphology. Postsurgical absence of the L5 spinous process and lamina. Moderate right degenerative facet arthropathy. Mild left degenerative facet arthropathy. Normal central canal and bilateral lateral recesses. Mild stenosis of the right intervertebral neural foramen. Normal left intervertebral neural foramen. Sacrum: Normal sacrum. Normal SI joints. Normal visualized paraspinous soft tissue structures. CT/Spine Lumbar without Contrast IMPRESSION: 1. No CT evidence of acute fractures of the lumbar spine, sacrum and SI joints. 2. PMMA casts inside T12 and L1 vertebral bodies from kyphoplasty. These are unchanged. 3. Mild degenerative retrolisthesis of L2 on L3 and L3 on L4 are unchanged. 4. No significant interval change or new finding when compared to 05/08/2022. Electronically Signed: John Smith MD at 10:13 EDT ,
== END | disposition home or self-care (01) ==
LOC: CT 09:29
PROVIDERS: PCP Family Medicine; Referring Provider Family Medicine; Visit Provider Family Medicine
DX: M54.50 Low back pain, unspecified (principal)
CPT/HCPCS: 72131

== ENCOUNTER → 2023-02-02 | Outpatient (CLI) | payer MEDICARE, OTHER, SELFPAY ==
[2023-02-02 18:03] LABS: International Normalized Ratio 1.7; Prothrombin Time (Protime)PT. 19.7 SECONDS (11.7-14.9)
== END | disposition home or self-care (01) ==
LOC: MFPLAB 16:16
PROVIDERS: PCP Family Medicine; Visit Provider Family Medicine
DX: Z79.01 Long term (current) use of anticoagulants (principal)
CPT/HCPCS: 36415; 85610

== ENCOUNTER 2023-02-06 11:44 | Emergency (ER) | payer MEDICARE, OTHER, SELFPAY ==
[2023-02-06 11:45] VITALS: BP 135/91; PULSE 87; RESP 16; TEMP 36.4; O2SAT 98
--- NOTE | 2023-02-06 12:19 | CT_ITS ---
HISTORY: abdominal pain. TECHNIQUE: Helically acquired images were obtained of the abdomen and pelvis without oral or IV contrast. A radiation dose optimization technique was used for this scan. 450 images. COMPARISON: 05/08/2022. FINDINGS: LOWER CHEST: Mild reticular scarring and calcified granuloma in the lung bases. Cardiomegaly. Gynecomastia. BOWEL: Small bowel and appendix nondilated. Moderate stool in the colon. Extensive colonic diverticulosis without focal pericolonic inflammatory change. PERITONEUM: No significant free fluid. LIVER/SPLEEN: Calcified granulomas. GALLBLADDER/BILIARY TREE: Gallbladder present. KIDNEYS AND URETERS: No nephrolithiasis or hydronephrosis. Multiple cysts bilaterally. PANCREAS/ADRENAL GLANDS: Nonenlarged. VESSELS: Tortuous aorta without abdominal aortic aneurysm. Atherosclerosis.. PELVIC ORGANS: Prostate radiotherapy seeds. BONES: Chronic T10, T12, and L1 mild compression fractures with vertebroplasty. Chronic mild T11 compression fracture. Decompressive lumbar laminectomy. Degenerative change, osteopenia, and mild scoliosis. Chronic left ischial fracture. CT/Abdomen/Pelvis without Cont IMPRESSION: Moderate stool in the colon. Colonic diverticulosis without acute diverticulitis. Bilateral renal cysts. Negative examination for renal stone. Multiple chronic compression fractures. Chronic left ischial fracture. Electronically Signed: Veronica Ruano MD at 13:56 EDT ,
--- NOTE | 2023-02-06 12:20 | EKG12_ITS ---
Test Reason : BACK Blood Pressure : / mmHG Vent. Rate : 086 BPM Atrial Rate : 086 BPM P-R Int : 214 ms QRS Dur : 106 ms QT Int : 412 ms P-R-T Axes : 083 011 026 degrees QTc Int : 493 ms Atrial tachycardia with 2:1 block Minimal voltage criteria for LVH, may be normal variant ( [place] product ) Prolonged QT Abnormal ECG Confirmed by JOSE KASPER, JESSICA ([id number]), publishing editor CIPRIANO GATES ([id number]) on 02/08/2023 7:51:10 AM Referred By: Confirmed By:CAM GARCIA MD
--- NOTE | 2023-02-06 12:34 | EDS_ITS ---
HPI <ZACH Chavez - Last Filed: 02/06/23 19:26> History of Present Illness Chief Complaint: Back Narrative Narrative: Patient presenting today with low back pain, abdominal pain, nausea, and vomiting that he has had for the past 2 days. He reports a history of chronic lower back pain and is going to start seeing pain management on the of this month. He feels like his back pain has worsened over the past few days. He denies any bowel/bladder incontinence, saddle paresthesia, and fever. Patient also reports intermittent generalized abdominal pain and nausea that he has had for several weeks that has been worse over the past 2 days and 3 episodes of vomiting that has occurred. He denies any hematemesis, diarrhea, or blood in the stool. Patient began taking Keflex for a UTI on 02/04/2023 and thinks that is when his symptoms started. He denies any chest pain or shortness of breath. PMH includes CKD, CAD, atrial fibrillation on Coumadin, and CHF. PFSH <ZACH Chavez - Last Filed: 02/06/23 19:26> [facility] Medical History Acute diverticulitis of intestine Acute gastrointestinal bleeding Acute kidney injury superimposed on chronic kidney disease Ambulates with cane Anemia Arthritis Atherosclerotic heart disease of [place] coronary artery without angina pectoris Atrial fibrillation Atypical atrial flutter (12/2020) Back pain Benign prostatic hyperplasia BPH (benign prostatic hyperplasia) Cancer Cardiology follow-up encounter Chronic anemia Chronic heart failure with preserved ejection fraction (HFpEF) Chronic kidney disease Chronic renal insufficiency Colitis CPAP (continuous positive airway pressure) dependence Debility Diarrhea Difficulty chewing Dysphagia Easy bruising Elevated LFTs Elevated liver enzymes Essential (primary) hypertension Excessive bleeding Gastric reflux GI bleed (2012) High cholesterol History of atrial fibrillation History of colon polyps History of diverticulitis History of echocardiogram History of edema History of heart attack History of hyperthyroidism History of leukemia History of pain when walking History of renal disease History of stress test HLD (hyperlipidemia) Hypertension Kidney disease Kidney stones Myocardial infarct Nausea and vomiting Non-rheumatic tricuspid valve insufficiency Non-smoker Nonrheumatic mitral (valve) insufficiency 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 Osteoarthritis Paroxysmal atrial fibrillation Secondary pulmonary arterial hypertension Sleep apnea Sleep apnea Stage 3b chronic kidney disease Thoracic aortic aneurysm (TAA) Thyroid disease Wears glasses Home Medications denosumab 60 mg/mL subcutaneous syringe (Prolia) 60 mg SQ .[id number] BONES 12/09/20 [History Last Taken 3 Months Ago ~11/24/21] ipratropium bromide 21 mcg (0.03 %) nasal spray 2 spray intranasal PRN PRN SOB 05/06/21 [History Last Taken 02/23/22] tamsulosin 0.4 mg capsule 0.4 mg PO QHS bladder 11/18/21 [History Last Taken 02/24/22] warfarin 2 mg tablet See Rx Instructions .Route .COMPLEX blood thinner 11/18/21 [History Last Taken 06/28/22] levothyroxine 25 mcg tablet 25 mcg PO DAILY 02/17/22 [History Last Taken 06/30/22 08:00] baclofen 5 mg tablet 5 mg PO TID PRN muscle spasms 05/01/22 [History Last Taken Unknown] coenzyme Q10 100 mg capsule (Co Q-10) 100 mg PO DAILY 05/01/22 [History Last Taken Unknown] pantoprazole 40 mg tablet,delayed release 40 mg PO DAILY 05/01/22 [History Last Taken 06/30/22 08:00] vitamin B complex 1 cap PO BID 05/01/22 [History Last Taken Unknown] metoprolol tartrate 25 mg tablet 12.5 mg PO BID #90 tabs 06/10/22 [Rx Last Taken 06/30/22 08:00] acetaminophen 500 mg capsule 1,000 mg PO Q6H PRN Pain 06/15/22 [History Last Taken Unknown] linaclotide 72 mcg capsule (Linzess) 72 mcg PO DAILY PRN Diarrhea 06/15/22 [History Last Taken Unknown] ascorbic acid (vitamin C) 500 mg tablet 500 mg PO DAILY 07/20/22 [History Last Taken Unknown] finasteride 5 mg tablet 5 mg PO DAILY 08/05/22 [History Last Taken Unknown] amiodarone 100 mg tablet 100 mg PO BID #180 tabs 08/09/22 [Rx Last Taken Unknown] loratadine 10 mg capsule 10 mg PO DAILY 08/16/22 [History Last Taken Unknown] multivitamin 1 tab PO DAILY 08/16/22 [History Last Taken Unknown] isosorbide mononitrate 30 mg tablet,extended release 24 hr 30 mg PO BID #180 tabs 09/22/22 [Rx Last Taken Unknown] potassium chloride 10 mEq tablet,extended release 10 meq PO DAILY #60 tabs 10/14/22 [Rx Last Taken Unknown] sucralfate 1 gram tablet (Carafate) 1 g PO QAC #90 tabs 10/21/22 [Rx Last Taken Unknown] famotidine 40 mg tablet 40 mg PO DAILY #30 tabs 10/29/22 [Rx Last Taken Unknown] warfarin 4 mg tablet See Rx Instructions .Route .COMPLEX 11/23/22 [History Last Taken Unknown] furosemide 40 mg tablet 60 mg PO DAILY PRN Weight Gain 11/25/22 [History Last Taken Unknown] ondansetron HCl 4 mg tablet 4 mg PO Q8H PRN Nausea And Vomiting 11/26/22 [History Last Taken Unknown] diltiazem HCl 120 mg capsule,extended release 24 hr 120 mg PO BID heart #60 caps 11/30/22 [Rx Last Taken Unknown] baclofen 10 mg tablet 10 mg PO TID PRN Muscle Spasm 12/31/22 [History Last Taken Unknown] dexamethasone 6 mg tablet 6 mg PO DAILY 12/31/22 [History Last Taken Unknown] oxycodone-acetaminophen 5 mg-325 mg tablet (Percocet) 1 tab PO Q6H PRN pain 3 days #12 tabs 01/05/23 [Rx Last Taken Unknown] doxycycline hyclate 100 mg capsule 100 mg PO BID #60 caps 01/06/23 [Rx Last Taken Unknown] pvkzmz-[id number]-wftsunt 36,000-114,000-180,000 unit capsule,delay rel (Creon) See Rx Instructions PO .COMPLEX #320 caps 01/06/23 [Rx Last Taken Unknown] Allergy/AdvReac Type Severity Reaction Status Date / Time diclofenac Allergy rash Verified 02/06/23 11:45 prednisone Allergy Rash Verified 02/06/23 11:45 Family History Father Cancer Prostate cancer Mother Hypertension Sister Hypertension Surgical History History of back surgery History of back surgery History of cardiac catheterization History of cardioversion (06/18/19) History of coronary artery stent placement (08/04/00) History of electrophysiologic study (08/08/00) History of esophagogastroduodenoscopy (EGD) History of hemorrhoidectomy History of hernia repair History of left heart catheterization (07/17/12) History of Zenaida fundoplication History of radiofrequency ablation procedure for cardiac arrhythmia (11/11/11) Social History household members: none Smoking Status: Never smoker alcohol intake: never substance use type: does not use caffeine: No ROS <ZACH Chavez - Last Filed: 02/06/23 19:26> ROS ED Constitutional Constitutional ED: Denies chills or fever(s) Cardiovascular Cardiovascular: Denies chest pain or palpitations Respiratory/Chest Respiratory/Chest: Denies cough or dyspnea Gastrointestinal Gastrointestinal: Reports abdominal pain, nausea and vomiting; Denies constipation or diarrhea Genitourinary Genitourinary ED: Reports dysuria; Denies hematuria or urinary urgency Musculoskeletal Musculoskeletal: Reports back pain Integumentary Denies abscess, Abrasions or rash Neurologic Neurologic: Denies paresthesias or weakness EXAM <ZACH Chavez - Last Filed: 02/06/23 19:26> Physical Exam Const Vital Signs: 02/06/23 11:45 02/06/23 11:45 02/06/23 15:36 Temperature 97.6 F L 97.6 F L 98.1 F Temperature Source Temporal Oral Oral Pulse Rate 87 87 87 Respiratory Rate 16 16 16 Blood Pressure 135/91 H 135/91 H Blood Pressure Mean 105 105 Pulse Ox 98 98 Oxygen Delivery Method Room Air Room Air Positive well nourished, well developed and no apparent distress General Appearance ED: well developed HEENT Reports normocephalic and head/scalp atraumatic Mouth ED: Yes moist mucous membranes normal Eyes PERRL and EOMs intact bilaterally Neck full ROM and supple Chest Wall inspection of chest normal Resp normal respiratory effort and clear to auscultation bilaterally Cardio regular rate and regular rhythm GI soft to palpation, non-tender, non-distended and no masses Back/Spine normal ROM and normal to inspection Extremity normal to inspection and full ROM Neuro oriented x3, CN's II-XII intact bilaterally, moves all extremities, no focal motor deficits and no sensory deficits noted Sensorium / Orientation: awake and alert Psych mental status grossly normal and thought process normal Skin no rashes or lesions noted and no wounds <Dr. Aurora Dwyer DO - Last Filed: 02/06/23 18:25> Physical Exam Const Vital Signs: 02/06/23 11:45 02/06/23 11:45 02/06/23 15:36 Temperature 97.6 F L 97.6 F L 98.1 F Temperature Source Temporal Oral Oral Pulse Rate 87 87 87 Respiratory Rate 16 16 16 Blood Pressure 135/91 H 135/91 H Blood Pressure Mean 105 105 Pulse Ox 98 98 Oxygen Delivery Method Room Air Room Air [facility] <ZACH Chavez - Last Filed: 02/06/23 19:26> [facility] Narrative Medical decision making narrative: Patient presenting due to nausea, vomiting, abdominal pain, and worsening back pain that he has had for the last few days after starting keflex for UTI. He reports a history of abdominal pain over the past several weeks as well as nausea and intermittent vomiting over that time. He does feel like it has worsened. Patient has a exacerbation of his chronic back pain, I have considered cauda equina syndrome and spinal abscess, however these are unlikely. Patient does not have any abdominal tenderness, but given his abdominal pain a CT scan will be obtained to rule out kidney stone, SBO, pancreatitis, and other abdominal process. Labs will be obtained to rule leukocytosis, anemia, electrolyte abnormality, FE. He has been given pain control. Slightly elevated WBC, patient has been on prednisone recently. INR is therapeutic. Slight anemia consistent with prior labs. Kidney function improved from previous visit. Lipase WNL, troponin WNL. UA unremarkable, he is on Keflex for UTI. CT scan shows multiple compression fractures in patient's spine, chronic left ischial fracture. He is aware of this and is following up with pain management next week. On reexamination he feels better, he already has Zofran at home for his nausea. Patient symptoms are likely due to the antibiotic as this all worsened once he began taking it. However, he is to finish it. He is to follow-up with his PCP and will be discharged home in stable condition. He is comfortable with plan. I have personally performed a face to face assessment of the patient and have reviewed the SRIIA Note. I performed a substantive portion of the visit including all aspects of the following. My bautista findings include: History is [patient presents to the emergency department with multiple complaints of back pain and abdominal pain. Patient states that he has history of chronic back pain for which she is scheduled to follow-up with pain management. Complains of pain in his lower back bilaterally but more on the right. Occasionally he will have some discomfort shooting down the right leg wi th certain movements. Patient also complaining of upper mid abdomen pain and vomiting episodes for the last 3 to 4 days. Patient states that the vomiting episode started when he was started on an antibiotic for urinary tract infection. Patient denies any fevers. He denies diarrhea. He denies blood in his stool or black tarry stool. Patient does have remote history of kidney stones.] Exam is [HEENT-PERRLA, EOMI. Cranial nerves II through XII grossly intact. TMs clear. Mucous membranes moist. No adenopathy. Cardiovascular-regular rate and rhythm without murmur or ectopy Lungs-clear to auscultation, chest wall stable without crepitus or subcu emphysema Abdomen-normoactive bowel sounds, soft. Patient has tenderness to palpation over the epigastric region with some guarding. There is no rebound, rigidity, or pedal signs. No mass palpated. Back exam-patient has diffuse tenderness over lumbar paraspinal musculature. Negative straight leg raises. Deep tendon reflexes are plus 2 out of 4 bilaterally at the patella and Achilles. Patient has normal L5 extension. Patient has normal sensation to light touch. Extremities-intact ?4, normal range of motion, normal pulses, atraumatic] Medical Decison Making [patient presents with acute on chronic back pain. Presents with abdominal pain and vomiting. He has had no injury to his back. Suspect acute exacerbation of his chronic back pain. There are no red flag signs or symptoms of cauda equina. Given his abdominal pain and vomiting we will obtain lab work-up. We will obtain a CT scan to rule out kidney stones or pyelonephritis versus other acute intra-abdominal process.] Patient lab work-up significant for slightly elevated white count of 13.6 however he is on prednisone. Chemistries unremarkable. LFTs were normal. Troponin normal. Lipase normal at 25. Urinalysis positive for nitrites but only 0-5 WBCs and rare bacteria. CT scan of the abdomen pelvis without contrast essentially unremarkable. Patient does not want thing for pain for home. He has Zofran at home for nausea. He is advised to continue with his Keflex. Advised to follow- up with primary care physician within next 3 to 5 days. Other additions or changes: [None] Lab Data Labs: Laboratory Results - last 24 hr 02/06/23 02/06/23 02/06/23 12:44 12:44 12:44 WBC 13.6 H RBC 3.17 L Hgb 11.8 L Hct 35.0 L MCV 110.4 H MCH 37.2 H MCHC 33.7 RDW Std Deviation 61.9 H RDW Coeff of Pablo 15.1 H Plt Count 243 MPV 10.8 Immature Gran % (Auto) 1.000 H Neut % (Auto) 84.0 H Lymph % (Auto) 4.5 L [place] % (Auto) 9.1 Eos % (Auto) 1.0 Baso % (Auto) 0.4 Absolute Neuts (auto) 11.5 H Absolute Lymphs (auto) 0.61 L Nucleated RBC % 0 PT 21.8 H INR 1.9 Sodium 139 Potassium 3.7 Chloride 107 Carbon Dioxide 25.0 Anion Gap 7 BUN 31 H Creatinine 1.81 H Est GFR (MDRD) Af Amer 46 L Est GFR (MDRD) Non-Af 38 L BUN/Creatinine Ratio 17.1 Glucose 96 Lactic Acid Calcium 8.9 Total Bilirubin 1.10 H AST 52 H ALT 63 H Alkaline Phosphatase 110 Troponin I High Sens 22 Total Protein 7.2 Albumin 3.2 Globulin 4.0 Albumin/Globulin Ratio 0.8 L Lipase 25 Urine Color Urine Clarity Urine pH Ur Specific [place] Urine Protein Urine Glucose (UA) Urine Ketones Urine Occult Blood Urine Nitrite Urine Bilirubin Urine Urobilinogen Ur Leukocyte Esterase Urine RBC Urine WBC Ur Squamous Epith Cells Urine Bacteria Urine Mucus 02/06/23 02/06/23 12:44 14:37 WBC RBC Hgb Hct MCV MCH MCHC RDW Std Deviation RDW Coeff of [place] Plt Count MPV Immature Gran % (Auto) Neut % (Auto) Lymph % (Auto) [place] % (Auto) Eos % (Auto) Baso % (Auto) Absolute Neuts (auto) Absolute Lymphs (auto) Nucleated RBC % PT INR Sodium Potassium Chloride Carbon Dioxide Anion Gap BUN Creatinine Est GFR (MDRD) Af Amer Est GFR (MDRD) Non-Af BUN/Creatinine Ratio Glucose Lactic Acid 1.0 Calcium Total Bilirubin AST ALT Alkaline Phosphatase Troponin I High Sens Total Protein Albumin Globulin Albumin/Globulin Ratio Lipase Urine Color Yellow Urine Clarity Clear Urine pH 5.0 Ur Specific [place] 1.025 Urine Protein 30 H Urine Glucose (UA) Normal Urine Ketones 5 H Urine Occult Blood 25 H Urine Nitrite Positive H Urine Bilirubin 3 H Urine Urobilinogen 4 H Ur Leukocyte Esterase 25 H Urine RBC 0-5 SEEN Urine WBC 0-5 SEEN Ur Squamous Epith Cells 0-5 SEEN Urine Bacteria RARE Urine Mucus 0 SEEN Radiography Diagnostic Testing: Clinical Impression(s) from Imaging Studies Abdomen/Pelvis CT 02/06/23 12:19 IMPRESSION: Moderate stool in the colon. Colonic diverticulosis without acute diverticulitis. Bilateral renal cysts. Negative examination for renal stone. Multiple chronic compression fractures. Chronic left ischial fracture. Electronically Signed: Veronica Ruano MD at 13:56 EDT , <Dr. Aurora Dwyer, DO - Last Filed: 02/06/23 18:25> [facility] Narrative Medical decision making narrative: Patient presenting due to nausea, vomiting, abdominal pain, and worsening back pain that he has had for the last few days after starting keflex for UTI. He reports a history of abdominal pain over the past several weeks as well as nausea and intermittent vomiting over that time. He does feel like it has worsened. Patient has a exacerbation of his chronic back pain, I have considered cauda equina syndrome and spinal abscess, however these are unlikely. Patient does not have any abdominal tenderness, but given his abdominal pain a CT scan will be obtained to rule out kidney stone, SBO, pancreatitis, and other abdominal process. Labs will be obtained to rule leukocytosis, anemia, electrolyte abnormality, FE. He has been given pain control. I have personally performed a face to face assessment of the patient and have reviewed the SIRIA Note. I performed a substantive portion of the visit including all aspects of the following. My bautista findings include: History is [patient presents to the emergency department with multiple complaints of back pain and abdominal pain. Patient states that he has history of chronic back pain for which she is scheduled to follow-up with pain management. Complains of pain in his lower back bilaterally but more on the right. Occasionally he will have some discomfort shooting down the right leg with certain movements. Patient also complaining of upper mid abdomen pain and vomiting episodes for the last 3 to 4 days. Patient states that the vomiting episode started when he was started on an antibiotic for urinary tract infection. Patient denies any fevers. He denies diarrhea. He denies blood in his stool or black tarry stool. Patient does have remote history of kidney stones.] Exam is [HEENT-PERRLA, EOMI. Cranial nerves II through XII grossly intact. TMs clear. Mucous membranes moist. No adenopathy. Cardiovascular-regular rate and rhythm without murmur or ectopy Lungs-clear to auscultation, chest wall stable without crepitus or subcu emphysema Abdomen-normoactive bowel sounds, soft. Patient has tenderness to palpation over the epigastric region with some guarding. There is no rebound, rigidity, or pedal signs. No mass palpated. Back exam-patient has diffuse tenderness over lumbar paraspinal musculature. Negative straight leg raises. Deep tendon reflexes are plus 2 out of 4 bilaterally at the patella and Achilles. Patient has normal L5 extension. Patient has normal sensation to light touch. Extremities-intact ?4, normal range of motion, normal pulses, atraumatic] Medical Decison Making [patient presents with acute on chronic back pain. Prese nts with abdominal pain and vomiting. He has had no injury to his back. Suspect acute exacerbation of his chronic back pain. There are no red flag signs or symptoms of cauda equina. Given his abdominal pain and vomiting we will obtain lab work-up. We will obtain a CT scan to rule out kidney stones or pyelonephritis versus other acute intra-abdominal process.] Patient lab work-up significant for slightly elevated white count of 13.6 however he is on prednisone. Chemistries unremarkable. LFTs were normal. Troponin normal. Lipase normal at 25. Urinalysis positive for nitrites but only 0-5 WBCs and rare bacteria. CT scan of the abdomen pelvis without contrast essentially unremarkable. Patient does not want thing for pain for home. He has Zofran at home for nausea. He is advised to continue with his Keflex. Advised to follow- up with primary care physician within next 3 to 5 days. Other additions or changes: [None] Lab Data Attestation: I reviewed the patient's lab results. Labs: Laboratory Results - last 24 hr 02/06/23 02/06/23 02/06/23 12:44 12:44 12:44 WBC 13.6 H RBC 3.17 L Hgb 11.8 L Hct 35.0 L MCV 110.4 H MCH 37.2 H MCHC 33.7 RDW Std Deviation 61.9 H RDW Coeff of Pablo 15.1 H Plt Count 243 MPV 10.8 Immature Gran % (Auto) 1.000 H Neut % (Auto) 84.0 H Lymph % (Auto) 4.5 L [place] % (Auto) 9.1 Eos % (Auto) 1.0 Baso % (Auto) 0.4 Absolute Neuts (auto) 11.5 H Absolute Lymphs (auto) 0.61 L Nucleated RBC % 0 PT 21.8 H INR 1.9 Sodium 139 Potassium 3.7 Chloride 107 Carbon Dioxide 25.0 Anion Gap 7 BUN 31 H Creatinine 1.81 H Est GFR (MDRD) Af Amer 46 L Est GFR (MDRD) Non-Af 38 L BUN/Creatinine Ratio 17.1 Glucose 96 Lactic Acid Calcium 8.9 Total Bilirubin 1.10 H AST 52 H ALT 63 H Alkaline Phosphatase 110 Troponin I High Sens 22 Total Protein 7.2 Albumin 3.2 Globulin 4.0 Albumin/Globulin Ratio 0.8 L Lipase 25 Urine Color Urine Clarity Urine pH Ur Specific [place] Urine Protein Urine Glucose (UA) Urine Ketones Urine Occult Blood Urine Nitrite Urine Bilirubin Urine Urobilinogen Ur Leukocyte Esterase Urine RBC Urine WBC Ur Squamous Epith Cells Urine Bacteria Urine Mucus 02/06/23 02/06/23 12:44 14:37 WBC RBC Hgb Hct MCV MCH MCHC RDW Std Deviation RDW Coeff of Pablo Plt Count MPV Immature Gran % (Auto) Neut % (Auto) Lymph % (Auto) [place] % (Auto) Eos % (Auto) Baso % (Auto) Absolute Neuts (auto) Absolute Lymphs (auto) Nucleated RBC % PT INR Sodium Potassium Chloride Carbon Dioxide Anion Gap BUN Creatinine Est GFR (MDRD) Af Amer Est GFR (MDRD) Non-Af BUN/Creatinine Ratio Glucose Lactic Acid 1.0 Calcium Total Bilirubin AST ALT Alkaline Phosphatase Troponin I High Sens Total Protein Albumin Globulin Albumin/Globulin Ratio Lipase Urine Color Yellow Urine Clarity Clear Urine pH 5.0 Ur Specific [place] 1.025 Urine Protein 30 H Urine Glucose (UA) Normal Urine Ketones 5 H Urine Occult Blood 25 H Urine Nitrite Positive H Urine Bilirubin 3 H Urine Urobilinogen 4 H Ur Leukocyte Esterase 25 H Urine RBC 0-5 SEEN Urine WBC 0-5 SEEN Ur Squamous Epith Cells 0-5 SEEN Urine Bacteria RARE Urine Mucus 0 SEEN Radiography Diagnostic Testing: Clinical Impression(s) from Imaging Studies Abdomen/Pelvis CT 02/06/23 12:19 IMPRESSION: Moderate stool in the colon. Colonic diverticulosis without acute diverticulitis. Bilateral renal cysts. Negative examination for renal stone. Multiple chronic compression fractures. Chronic left ischial fracture. Electronically Signed: Veronica Ruano MD at 13:56 EDT , EKG Initial EKG: Attestation: I personally reviewed and interpreted this EKG as follows: Comments: Sinus rhythm with a rate of 86 bpm with a first-degree AV block and criteria for LVH Discharge Plan Triage Chief Complaint: Back Other Complaint: Complaint Nausea/Vomiting ED Midlevel Provider: Franchesca Braxton ED Provider: Aurora Dwyer Dx/Rx/DC Orders Clinical Impression: Compression fracture of vertebrae, Chronic back pain, Abdominal pain, Nausea and vomiting Instructions: ED Vomiting (Adult) Prescriptions: No Action tamsulosin 0.4 mg capsule 0.4 mg PO QHS levothyroxine 25 mcg tablet 25 mcg PO DAILY Label Comments: take 1 tablet by mouth once daily acetaminophen 500 mg capsule 1,000 mg PO Q6H PRN (Reason: Pain) Linzess 72 mcg capsule 72 mcg PO DAILY PRN (Reason: Diarrhea) ascorbic acid (vitamin C) 500 mg tablet 500 mg PO DAILY finasteride 5 mg tablet 5 mg PO DAILY Prolia 60 MG/ML syringe 60 mg SQ .[id number] ipratropium bromide 21 mcg (0.03 %) [place],Non-Aerosol 2 spray INTRANASAL PRN PRN (Reason: SOB) warfarin 2 mg tablet See Rx Instructions .ROUTE .COMPLEX Protocol: Dose Management Condition: Tuesday Dose/Route: 4 mg Instruction: 1 x 4 mg tablet Condition: Tuesday Dose/Route: 2 mg Instruction: 1 x 2 mg tablet Condition: Tuesday Dose/Route: 2 mg Instruction: 1 x 2 mg tablet Condition: Tuesday Dose/Route: 4 mg Instruction: 1 x 4 mg tablet Condition: Dose/Route: 4 mg Instruction: 1 x 4 mg tablet Condition: Tuesday Dose/Route: 4 mg Instruction: 1 x 4 mg tablet Condition: Tuesday Dose/Route: 4 mg Instruction: 1 x 4 mg tablet Protocol Text: Adjustment Start Date: 02/03/23 INR Value: 1.7 INR Date: 02/02/23 Recheck Date: 02/10/23 Label Comments: Adjustment 01/03. Pt to take 2mg Wednesday 01/03, 2mg Thursday 01/04. Retest 01/05. Rx Instructions: 2 mg orally Tue, Tuesday and Tue pantoprazole 40 mg Tablet,Delayed Release (Dr/Ec) 40 mg PO DAILY vitamin B complex Capsule 1 cap PO BID coenzyme Q10 [Co Q-10] 100 mg Capsule 100 mg PO DAILY baclofen 5 mg Tablet 5 mg PO TID PRN (Reason: muscle spasms) multivitamin Tablet 1 tab PO DAILY loratadine 10 mg Capsule 10 mg PO DAILY warfarin 4 mg Tablet See Rx Instructions .ROUTE .COMPLEX Protocol: Dose Management Condition: Tuesday Dose/Route: 4 mg Instruction: 1 x 4 mg tablet Condition: Tuesday Dose/Route: 2 mg Instruction: 1 x 2 mg tablet Condition: Tuesday Dose/Route: 2 mg Instruction: 1 x 2 mg tablet Condition: Tuesday Dose/Route: 4 mg Instruction: 1 x 4 mg tablet Condition: Dose/Route: 4 mg Instruction: 1 x 4 mg tablet Condition: Tuesday Dose/Route: 4 mg Instruction: 1 x 4 mg tablet Condition: Tuesday Dose/Route: 4 mg Instruction: 1 x 4 mg tablet Protocol Text: Adjustment Start Date: 02/03/23 INR Value: 1.7 INR Date: 02/02/23 Recheck Date: 02/10/23 Rx Instructions: 4mg Sun, Tue, , Next INR 4/3 ondansetron HCl [Zofran] 4 mg Tablet 4 mg PO Q8H PRN (Reason: Nausea And Vomiting) baclofen 10 mg tablet 10 mg PO TID PRN (Reason: Muscle Spasm) dexamethasone 6 mg Tablet 6 mg PO DAILY Rx Instructions: 1 6mg tablet daily for 4 days, 1/2 tablet for 4 days. oxycodone-acetaminophen [Percocet] 5-325 mg tablet 1 tab PO Q6H PRN (Reason: pain) 3 Days Qty: 12 0RF metoprolol tartrate 25 mg tablet 12.5 mg PO BID Qty: 90 3RF amiodarone 100 mg tablet 100 mg PO BID Qty: 180 3RF isosorbide mononitrate 30 mg tablet extended release 24 hr 30 mg PO BID Qty: 180 3RF potassium chloride 10 mEq tablet extended release 10 meq PO DAILY Qty: 60 11RF sucralfate [Carafate] 1 gram tablet 1 g PO QAC Qty: 90 0RF Rx Instructions: take two hours away from other medication. famotidine 40 mg tablet 40 mg PO DAILY Qty: 30 3RF furosemide 40 mg tablet 60 mg PO DAILY PRN (Reason: Weight Gain) Rx Instructions: as needed for weight gain of 3# in one day diltiazem HCl 120 mg capsule,extended release 24hr 120 mg PO BID Qty: 60 11RF doxycycline hyclate 100 mg capsule 100 mg PO BID Qty: 60 1RF Creon 36,000-114,000- 180,000 unit capsule,delayed release(DR/EC) See Rx Instructions PO .COMPLEX Qty: 320 3RF Rx Instructions: take 1-2 with snacks and 2-3 with meals Primary Care Provider: César Chinchilla Referrals: César Chinchilla MD [Primary Care Provider] - 3-5 Days Activity Restrictions/Additional Instructions: Follow up with PCP. Return for any worsening symptoms. Disposition Disposition: Home, Self Care Discharge Date/Time: 02/06/23 15:46
[2023-02-06] MEDS: Morphine 4 MG/ML Syringe IV (12:46)
[2023-02-06 13:02] LABS: Absolute Lymphocyte Count 0.61 X10^3/uL (0.83-4.51); Absolute Neutrophil Count 11.5 X10^3/uL (2.0-7.7); Basophil# 0.05 X10^3/uL; Basophil% 0.4 % (0-1); Eosinophil# 0.13 X10^3/uL; Hemoglobin 11.8 g/dL (13.0-16.5); Lymphocyte # 0.61 X10^3/ul (0.83-4.51); Lymphocyte % 4.5 % (19-41); Mean Corp Hgb Conc 33.7 g/dL (32-36); Mean Corpuscular Hgb 37.2 pg (27.0-32.0); Mean Corpuscular Volume 110.4 fL (80-94); Mean Platelet Vol. 10.8 fl (6.2-12.0); Monocyte# 1.24 X10^3/uL; Monocyte% 9.1 % (0-10); NRBC Flagged by Analyzer 0 % (0-5); Neutrophil # 11.45 X10^3/uL (2.7-7.7); Platelet Count 243 K/mm3 (150-450); RBC Distribution Width CV 15.1 % (11.6-14.6); RBC Distribution Width SD 61.9 fl (35.1-43.9); Red Blood Count 3.17 M/mm3 (4.6-6.2); White Blood Count 13.6 K/mm3 (4.4-11.0)
[2023-02-06 13:07] LABS: International Normalized Ratio 1.9; Prothrombin Time (Protime)PT. 21.8 SECONDS (11.7-14.9)
[2023-02-06 13:16] LABS: ALB/GLOB Ratio 0.8 RATIO (0.9-2.4); AST(SGOT) 52 U/L (15-37); Alanine Aminotransfer ALT/SGPT 63 U/L (16-61); Albumin, Serum 3.2 g/dL (3.2-5.0); Alkaline Phosphatase 110 U/L (45-117); Anion Gap 7 (5-15); BUN 31 mg/dL (7-18); BUN/Creat Ratio 17.1 RATIO (10-20); Calcium,Total 8.9 mg/dL (8.5-10.1); Chloride 107 mmol/L (98-107); Creatinine, Serum 1.81 mg/dL (0.70-1.30); EST Glomerular Filtration Rate 38 mL/min (>60); Est Glom Filt Rate - Afr Amer 46 mL/min (>60); Glucose 96 mg/dL (74-106); Lipase 25 U/L (13-75); Potassium 3.7 mmol/L (3.5-5.1); Protein, Total 7.2 g/dL (6.4-8.2); Sodium Level 139 mmol/L (136-145); Troponin-I HS 22 pg/mL (3.0-78.0)
[2023-02-06 14:44] LABS: Mucous, Urine 0 SEEN /hpf (<or=2+)
[2023-02-06 14:46] LABS: Color, Urine Yellow (Yellow); Glucose, Dipstick Normal (Normal); Ketone-Dipstick 5 mg/dl (Negative); Leukocyte Esterase-Dipstick 25 /ul (Negative); Nitrite-Dipstick Positive (Negative); Occult Blood-Urine 25 /ul (Negative); Protein-Dipstick 30 mg/dl (Negative); Specific Gravity, Urine 1.025 (1.002-1.030); Urine Clarity Clear (Clear); Urine Urobilinogen 4 mg/dl (Normal)
[2023-02-06 14:53] LABS: Urine Bilirubin Dipstick 3 mg/dL (Negative)
[2023-02-06 15:21] LABS: Bacteria RARE /hpf (None Seen); Red Blood Cells-Urine 0-5 SEEN /hpf (0-5); Squamous Epithelial Cells - UA 0-5 SEEN /hpf (0-5); White Blood Cells 0-5 SEEN /hpf (0-5)
[2023-02-06 15:36] VITALS: PULSE 87; RESP 16; TEMP 36.7
== END 2023-02-06 15:46 | disposition home or self-care (01) ==
PROVIDERS: Physician Assistant; Emergency Provider Emergency Medicine; PCP Family Medicine; Visit Provider Emergency Medicine
DX: M48.50XA Collapsed vertebra, not elsewhere classified, site unspecified, initial encounter for fracture (principal); I13.0 Hypertensive heart and chronic kidney disease with heart failure and stage 1 through stage 4 chronic kidney disease, or unspecified chronic kidney disease; I50.32 Chronic diastolic (congestive) heart failure; I48.0 Paroxysmal atrial fibrillation; N18.32 Chronic kidney disease, stage 3b; R11.2 Nausea with vomiting, unspecified; E78.00 Pure hypercholesterolemia, unspecified; I25.10 Atherosclerotic heart disease of native coronary artery without angina pectoris; M54.9 Dorsalgia, unspecified; R10.9 Unspecified abdominal pain; M19.90 Unspecified osteoarthritis, unspecified site; Z79.899 Other long term (current) drug therapy; N40.0 Benign prostatic hyperplasia without lower urinary tract symptoms; Z79.01 Long term (current) use of anticoagulants; K21.9 Gastro-esophageal reflux disease without esophagitis; Z95.5 Presence of coronary angioplasty implant and graft; G89.29 Other chronic pain
CPT/HCPCS: 74176; 80053; 81001; 83605; 83690; 84484; 85025; 85610; 93005; 96374; 99284

== ENCOUNTER → 2023-02-09 | Outpatient (CLI) | payer MEDICARE, OTHER, SELFPAY ==
--- NOTE | 2023-02-09 14:28 | RAD_ITS ---
STUDY: X-RAY - LUMBAR SPINE REASON FOR EXAM: Male, 82 years old. Pain. Falls. Previous compression fractures. TECHNIQUE: 2 view(s) of the lumbar spine were obtained. COMPARISON: Radiographs 01/25/2023, CT scan 01/29/2023, CT scan 02/06/2023 FINDINGS: Severe demineralization. Normal lordosis. Stable 1 cm anterolisthesis of L3 relative to L2. Stable treated compression fractures of L1, T12, and T10. Nontreated compression fractures of L4, L3, and T11, are also present on the CT scan of 02/06/2023. However the compression fracture of T11 was not present on 01/29/2023. Stable multilevel degenerative changes. Stable postoperative changes at L3, L4, and L5. There is atherosclerotic calcification of the abdominal aorta without a demonstrated aneurysm. RAD/Lumbar Spine 2 or 3 Views IMPRESSION: Severe demineralization and numerous compression fractures. Most of these are chronic. A compression fracture of T11 was present on CT scan of 02/06/2023 but not on 01/29/2023. Electronically Signed: Tripp Jj MD at 17:30 EDT ,
== END | disposition home or self-care (01) ==
LOC: RAD 14:22
PROVIDERS: PCP Family Medicine; Referring Provider Anesthesiology Pain Medicine; Visit Provider Anesthesiology Pain Medicine
DX: M47.816 Spondylosis without myelopathy or radiculopathy, lumbar region (principal); M47.817 Spondylosis without myelopathy or radiculopathy, lumbosacral region
CPT/HCPCS: 72100

== ENCOUNTER 2023-02-10 11:43 | Outpatient (RCR) | payer MEDICARE, OTHER, SELFPAY ==
[2023-02-10 12:29] LABS: International Normalized Ratio 2.5; Prothrombin Time (Protime)PT. 27.3 SECONDS (11.7-14.9)
== END 2023-02-10 18:00 | disposition home or self-care (01) ==
LOC: LAB 11:43
PROVIDERS: PCP Family Medicine; Referring Provider Internal Medicine Cardiovascular Disease; Visit Provider Internal Medicine Cardiovascular Disease
DX: N18.32 Chronic kidney disease, stage 3b; Z79.01 Long term (current) use of anticoagulants; I48.0 Paroxysmal atrial fibrillation
CPT/HCPCS: 36415; 85610

== ENCOUNTER 2023-02-13 09:12 | Inpatient (IN) | payer MEDICARE, OTHER, SELFPAY ==
[2023-02-13] VITALS (9 sets, daily range): BP systolic 144–154; BP diastolic 80–105; PULSE 81–94; RESP 16–18; TEMP 36.3–36.9; O2SAT 92–97; BMI 21.7; BMI 20.8
--- NOTE | 2023-02-13 09:46 | CT_ITS ---
EXAM: CT ABDOMEN AND PELVIS WITHOUT INTRAVENOUS CONTRAST CLINICAL INDICATION: flank pain AND LOW ABDOMINAL PAIN. HX OF DIVERTICULITIS TECHNIQUE: Helically acquired images were obtained of the abdomen and pelvis without intravenous contrast. This CT exam was performed using one or more of the following dose reduction techniques: automated exposure control, adjustment of the mA and/or kV according to patient size, and/or use of iterative reconstruction technique. COMPARISON: CT Abdomen Pelvis dated 02/06/2023 FINDINGS: LOWER THORAX: Stable cardiomegaly. Prominent coronary artery calcification. Centrilobular pulmonary emphysema lung bases. ABDOMEN: LIVER: Normal. Homogeneous. PANCREAS: Normal. No focal cystic mass. SPLEEN: Normal. Normal size without focal cystic or solid mass. ADRENALS: Normal. No nodules. KIDNEYS AND URETERS: Simple appearing bilateral renal cysts. STOMACH AND BOWEL: Wall thickening of the sigmoid colon noted with focus of adjacent fat stranding consistent with acute sigmoid diverticulitis. No evidence of abscess or perforation. PELVIS: APPENDIX: Appendix is visualized and normal in appearance. BLADDER: Normal. REPRODUCTIVE: There appear to be brachial therapy seeds within the prostate gland. ABDOMEN and PELVIS: INTRAPERITONEAL SPACE: Normal. No ascites or other fluid collection. No free air. BONES/JOINTS: No suspicious lytic or blastic abnormality. SOFT TISSUES: Normal. No discrete abdominal or pelvic wall hernia. VASCULATURE: Normal. Abdominal aorta is non-dilated. LYMPH NODES: Normal. No enlarged lymph nodes. CT/Abdomen/Pelvis without Cont IMPRESSION: 1. Acute sigmoid diverticulitis without evidence of abscess or perforation. 2. No evidence of urinary tract stone disease. Electronically Signed: Frandy Faustin MD at 10:37 EDT ,
--- NOTE | 2023-02-13 09:49 | EDS_ITS ---
HPI History of Present Illness Chief Complaint: Back Informant: patient Narrative Narrative: Patient presenting for pain in his low back for the last couple days, it is across to his mid-low back, he states he has had pain like this for a long time, he does not know for how long, but he just saw Dr. Richardson with pain management for the first time for this and had an injection 4 days ago, he states this pain became worse 2 days later. He states for the past 3 to 4 days he has been constipated and having a hard time having bowel movements, and he is having some mild lower abdominal pain. He does not feel the impending need to go right now. He states he has had urinary frequency for the past 2 days but no dysuria or other urinary symptoms, no retention. He has had no pain or numbness radiating down his legs or weakness. It hurts more to move in his back. He states the pain seems to come in waves and when it does it makes him nauseated. [facility] Medical History Acute diverticulitis of intestine Acute gastrointestinal bleeding Acute kidney injury superimposed on chronic kidney disease Ambulates with cane Anemia Arthritis Atherosclerotic heart disease of [place] coronary artery without angina pectoris Atrial fibrillation Atypical atrial flutter (12/2020) Back pain Benign prostatic hyperplasia BPH (benign prostatic hyperplasia) Cancer Cardiology follow-up encounter Chronic anemia Chronic heart failure with preserved ejection fraction (HFpEF) Chronic kidney disease Chronic renal insufficiency Colitis CPAP (continuous positive airway pressure) dependence Debility Diarrhea Difficulty chewing Dysphagia Easy bruising Elevated LFTs Elevated liver enzymes Essential (primary) hypertension Excessive bleeding Gastric reflux GI bleed (2012) High cholesterol History of atrial fibrillation History of colon polyps History of diverticulitis History of echocardiogram History of edema History of heart attack History of hyperthyroidism History of leukemia History of pain when walking History of renal disease History of stress test HLD (hyperlipidemia) Hypertension Kidney disease Kidney stones Myocardial infarct Nausea and vomiting Non-rheumatic tricuspid valve insufficiency Non-smoker Nonrheumatic mitral (valve) insufficiency 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 Osteoarthritis Paroxysmal atrial fibrillation Secondary pulmonary arterial hypertension Sleep apnea Sleep apnea Stage 3b chronic kidney disease Thoracic aortic aneurysm (TAA) Thyroid disease Wears glasses Home Medications denosumab 60 mg/mL subcutaneous syringe (Prolia) 60 mg SQ .[id number] BONES 04/13/21 [History Last Taken 3 Months Ago ~11/24/21] ipratropium bromide 21 mcg (0.03 %) nasal spray 2 spray intranasal PRN PRN SOB 05/06/21 [History Last Taken 02/23/22] tamsulosin 0.4 mg capsule 0.4 mg PO QHS bladder 11/18/21 [History Last Taken 02/24/22] warfarin 2 mg tablet See Rx Instructions .Route .COMPLEX blood thinner 11/18/21 [History Last Taken 06/28/22] levothyroxine 25 mcg tablet 25 mcg PO DAILY 02/17/22 [History Last Taken 06/30/22 08:00] baclofen 5 mg tablet 5 mg PO TID PRN muscle spasms 05/01/22 [History Last Taken Unknown] coenzyme Q10 100 mg capsule (Co Q-10) 100 mg PO DAILY 05/01/22 [History Last Taken Unknown] pantoprazole 40 mg tablet,delayed release 40 mg PO DAILY 05/01/22 [History Last Taken 06/30/22 08:00] vitamin B complex 1 cap PO BID 05/01/22 [History Last Taken Unknown] metoprolol tartrate 25 mg tablet 12.5 mg PO BID #90 tabs 06/10/22 [Rx Last Taken 06/30/22 08:00] acetaminophen 500 mg capsule 1,000 mg PO Q6H PRN Pain 06/15/22 [History Last Taken Unknown] linaclotide 72 mcg capsule (Linzess) 72 mcg PO DAILY PRN Diarrhea 06/15/22 [History Last Taken Unknown] ascorbic acid (vitamin C) 500 mg tablet 500 mg PO DAILY 07/20/22 [History Last Taken Unknown] finasteride 5 mg tablet 5 mg PO DAILY 08/05/22 [History Last Taken Unknown] amiodarone 100 mg tablet 100 mg PO BID #180 tabs 08/09/22 [Rx Last Taken Unknown] loratadine 10 mg capsule 10 mg PO DAILY 08/16/22 [History Last Taken Unknown] multivitamin 1 tab PO DAILY 08/16/22 [History Last Taken Unknown] isosorbide mononitrate 30 mg tablet,extended release 24 hr 30 mg PO BID #180 tabs 09/22/22 [Rx Last Taken Unknown] potassium chloride 10 mEq tablet,extended release 10 meq PO DAILY #60 tabs 10/14/22 [Rx Last Taken Unknown] sucralfate 1 gram tablet (Carafate) 1 g PO QAC #90 tabs 10/21/22 [Rx Last Taken Unknown] famotidine 40 mg tablet 40 mg PO DAILY #30 tabs 10/29/22 [Rx Last Taken Unknown] warfarin 4 mg tablet See Rx Instructions .Route .COMPLEX 11/23/22 [History Last Taken Unknown] furosemide 40 mg tablet 60 mg PO DAILY PRN Weight Gain 11/25/22 [History Last Taken Unknown] ondansetron HCl 4 mg tablet 4 mg PO Q8H PRN Nausea And Vomiting 11/26/22 [History Last Taken Unknown] diltiazem HCl 120 mg capsule,extended release 24 hr 120 mg PO BID heart #60 caps 11/30/22 [Rx Last Taken Unknown] baclofen 10 mg tablet 10 mg PO TID PRN Muscle Spasm 12/31/22 [History Last Taken Unknown] dexamethasone 6 mg tablet 6 mg PO DAILY 12/31/22 [History Last Taken Unknown] oxycodone-acetaminophen 5 mg-325 mg tablet (Percocet) 1 tab PO Q6H PRN pain 3 days #12 tabs 01/05/23 [Rx Last Taken Unknown] doxycycline hyclate 100 mg capsule 100 mg PO BID #60 caps 01/06/23 [Rx Last Taken Unknown] [id number] 36,000-114,000-180,000 unit capsule,delay rel (Creon) See Rx Instructions PO .COMPLEX #320 caps 01/06/23 [Rx Last Taken Unknown] Allergy/AdvReac Type Severity Reaction Status Date / Time diclofenac Allergy rash Verified 02/13/23 09:16 prednisone Allergy Rash Verified 02/13/23 09:16 Family History Father Cancer Prostate cancer Mother Hypertension Sister Hypertension Surgical History History of back surgery History of back surgery History of cardiac catheterization History of cardioversion (06/18/19) History of coronary artery stent placement (08/04/00) History of electrophysiologic study (08/08/00) History of esophagogastroduodenoscopy (EGD) History of hemorrhoidectomy History of hernia repair History of left heart catheterization (07/17/12) History of Zenaida fundoplication History of radiofrequency ablation procedure for cardiac arrhythmia (11/11/11) Social History household members: none Smoking Status: Never smoker alcohol intake: never substance use type: does not use caffeine: No ROS ROS ED Constitutional Constitutional ED: Denies chills or fever(s) Eyes Eyes: Denies change in vision or diplopia ENT ENT ED: Denies rhinorrhea or sore throat Cardiovascular Cardiovascular: Denies chest pain or palpitations Respiratory/Chest Respiratory/Chest: Denies cough or dyspnea Gastrointestinal Gastrointestinal: Reports abdominal pain, constipation and nausea; Denies fecal incontinence or vomiting Genitourinary Genitourinary ED: Reports other Details: no urinary retention ; Denies abdominal discomfort or urinary incontinence Musculoskeletal Musculoskeletal: Reports as per HPI and back pain; Denies neck pain Integumentary Denies rash or wounds Neurologic Neurologic: Denies headache(s), paresthesias or weakness Psychiatric Psychiatric: Denies anxiety or suicidal thoughts EXAM Physical Exam Const Vital Signs: 02/13/23 09:14 02/13/23 10:01 Temperature 97.4 F L Temperature Source Temporal Pulse Rate 93 Respiratory Rate 16 16 Blood Pressure 150/105 H Blood Pressure Mean 120 Pulse Ox 94 Oxygen Delivery Method Room Air Positive well nourished and well developed General Appearance ED: well developed and NAD HEENT Reports moist mucous membranes Negative for trauma or tenderness Eyes PERRL and EOMs intact bilaterally Neck full ROM and supple Resp normal respiratory effort and clear to auscultation bilaterally Cardio regular rate, regular rhythm and no murmurs GI normal to inspection, nondistended, normoactive bowel sounds and soft to palpation GI Narrative: Very mild suprapubic tenderness no guarding or rebound or pulsatile mass. On rectal exam, I do not feel large amount of hard stool, a small piece is palpable. No tenderness. No prolapse or hemorrhoids. Auscultation: normoactive bowel sounds Palpation: soft Back/Spine normal to inspection Back/Spine Narrative: Painful range of motion, only tenderness is in the midline mildly just above his lumbar surgical incision which is old and well-healed. Nml inspection, no rash/induration. General Back: other FROM Lumbar Spine / Lower Back: lumbar spinal tenderness L1 (And possibly T12) and straight leg raise negative bilaterally; Negative for ROM limited or paraspinal muscle tenderness Extremity normal to inspection, full ROM and no pedal edema General Extremety ED: Negative for edema, pulses abnormal or tenderness General Extremity: Negative for edema or pulses abnormal Neuro oriented x3 and no sensory deficits noted Sensorium / Orientation: alert Motor Exam: strength 5/5 throughout and clonus absent Deep Tendon Reflexes: Rt Patellar (L4): 2+, Lt Patellar (L4): 2+, Rt Ankle (S1): 2+ and Lt Ankle (S1): 2+ Deep Tendon Reflexes Back: Rt Patellar (L4): 2+, Lt Patellar (L4): 2+, Rt Ankle (S1): 2+ and Lt Ankle (S1): 2+ Plantar Reflex: Downgoing: bilateral Psych mental status grossly normal and thought process normal Skin no rashes or lesions noted and no wounds MDM MDM MDM Narrative Medical decision making narrative: Patient certainly could be having an acute exacerbation of his musculoskeletal low back pain related to an injection that he recently had assuming this was an epidural injection, could also be having pyelonephritis, kidney stone, other intra-abdominal/GI process, and/or an acute spinal fracture. Given all of this I thought a CT of the abdomen/pelvis without contrast was the best exam to obtain in addition to labs and a urinalysis. He has a leukocytosis of 14.8. I reviewed the images and the report of the abdominal CT which I agree with, basically showing acute sigmoid diverticulitis without complication. His urinalysis shows no signs of infection, there is a trace amount of hematuria. No stones were seen on the CT. I offered an enema since he felt constipated, and he was amenable to that. Given all of this I will treat him with antibiotics for the diverticulitis. Patient states he has been in a lot of pain and weak as a result, he prefers to be admitted for this. This is reasonable given his leukocytosis, discussed with hospitalist. Lab Data Attestation: I reviewed the patient's lab results. Labs: Laboratory Results - last 24 hr 02/13/23 02/13/23 02/13/23 09:55 09:55 10:30 WBC 14.8 H RBC 3.30 L Hgb 12.2 L Hct 36.0 L MCV 109.1 H MCH 37.0 H MCHC 33.9 RDW Std Deviation 60.2 H RDW Coeff of Pablo 15.1 H Plt Count 279 MPV 9.7 Immature Gran % (Auto) 0.900 Neut % (Auto) 87.4 H Lymph % (Auto) 3.4 L [place] % (Auto) 7.3 Eos % (Auto) 0.7 Baso % (Auto) 0.3 Absolute Neuts (auto) 12.9 H Absolute Lymphs (auto) 0.51 L Nucleated RBC % 0 Sodium 140 Potassium 3.8 Chloride 106 Carbon Dioxide 28.0 Anion Gap 6 BUN 32 H Creatinine 1.85 H Estim Creat Clear Calc 28.73 Est GFR (MDRD) Af Amer 45 L Est GFR (MDRD) Non-Af 37 L BUN/Creatinine Ratio 17.3 Glucose 103 Calcium 8.9 Urine Color Yellow Urine Clarity Clear Urine pH 7.0 Ur Specific [place] 1.010 Urine Protein 30 H Urine Glucose (UA) Normal Urine Ketones Negative Urine Occult Blood 10 H Urine Nitrite Negative Urine Bilirubin Negative Urine Urobilinogen Normal Ur Leukocyte Esterase Negative Urine RBC 0 SEEN Urine WBC 0 SEEN Ur Squamous Epith Cells 0 SEEN Urine Bacteria 0 SEEN Urine Mucus 0 SEEN Radiography Diagnostic Testing: Clinical Impression(s) from Imaging Studies Abdomen/Pelvis CT 02/13/23 09:46 IMPRESSION: 1. Acute sigmoid diverticulitis without evidence of abscess or perforation. 2. No evidence of urinary tract stone disease. Electronically Signed: Frandy Faustin MD at 10:37 EDT , Discharge Plan Triage Chief Complaint: Back ED Provider: Casimiro Ennis Dx/Rx/DC Orders Clinical Impression: Acute diverticulitis, Acute exacerbation of chronic low back pain, Acute constipation Prescriptions: No Action tamsulosin 0.4 mg capsule 0.4 mg PO QHS levothyroxine 25 mcg tablet 25 mcg PO DAILY Label Comments: take 1 tablet by mouth once daily acetaminophen 500 mg capsule 1,000 mg PO Q6H PRN (Reason: Pain) Linzess 72 mcg capsule 72 mcg PO DAILY PRN (Reason: Diarrhea) ascorbic acid (vitamin C) 500 mg tablet 500 mg PO DAILY finasteride 5 mg tablet 5 mg PO DAILY Prolia 60 MG/ML syringe 60 mg SQ .[id number] ipratropium bromide 21 mcg (0.03 %) [place],Non-Aerosol 2 spray INTRANASAL PRN PRN (Reason: SOB) warfarin 2 mg tablet See Rx Instructions .ROUTE .COMPLEX Protocol: Dose Management Condition: Tuesday Dose/Route: 4 mg Instruction: 1 x 4 mg tablet Condition: Tuesday Dose/Route: 2 mg Instruction: 1 x 2 mg tablet Condition: Tuesday Dose/Route: 2 mg Instruction: 1 x 2 mg tablet Condition: Tuesday Dose/Route: 4 mg Instruction: 1 x 4 mg tablet Condition: Dose/Route: 4 mg Instruction: 1 x 4 mg tablet Condition: Tuesday Dose/Route: 4 mg Instruction: 1 x 4 mg tablet Condition: Tuesday Dose/Route: 4 mg Instruction: 1 x 4 mg tablet Protocol Text: Adjustment Start Date: 02/10/23 INR Value: 2.5 INR Date: 02/10/23 Recheck Date: 02/24/23 Label Comments: Adjustment 01/03. Pt to take 2mg Wednesday 01/03, 2mg Thursday 01/04. Retest 01/05. Rx Instructions: 2 mg orally Tue, Tuesday and Tue pantoprazole 40 mg Tablet,Delayed Release (Dr/Ec) 40 mg PO DAILY vitamin B complex Capsule 1 cap PO BID coenzyme Q10 [Co Q-10] 100 mg Capsule 100 mg PO DAILY baclofen 5 mg Tablet 5 mg PO TID PRN (Reason: muscle spasms) multivitamin Tablet 1 tab PO DAILY loratadine 10 mg Capsule 10 mg PO DAILY warfarin 4 mg Tablet See Rx Instructions .ROUTE .COMPLEX Protocol: Dose Management Condition: Tuesday Dose/Route: 4 mg Instruction: 1 x 4 mg tablet Condition: Tuesday Dose/Route: 2 mg Instruction: 1 x 2 mg tablet Condition: Tuesday Dose/Route: 2 mg Instruction: 1 x 2 mg tablet Condition: Tuesday Dose/Route: 4 mg Instruction: 1 x 4 mg tablet Condition: Dose/Route: 4 mg Instruction: 1 x 4 mg tablet Condition: Tuesday Dose/Route: 4 mg Instruction: 1 x 4 mg tablet Condition: Tuesday Dose/Route: 4 mg Instruction: 1 x 4 mg tablet Protocol Text: Adjustment Start Date: 02/10/23 INR Value: 2.5 INR Date: 02/10/23 Recheck Date: 02/24/23 Rx Instructions: 4mg Sun, Mon, Tues, Thurs Next INR 4/3 ondansetron HCl [Zofran] 4 mg Tablet 4 mg PO Q8H PRN (Reason: Nausea And Vomiting) baclofen 10 mg tablet 10 mg PO TID PRN (Reason: Muscle Spasm) dexamethasone 6 mg Tablet 6 mg PO DAILY Rx Instructions: 1 6mg tablet daily for 4 days, 1/2 tablet for 4 days. oxycodone-acetaminophen [Percocet] 5-325 mg tablet 1 tab PO Q6H PRN (Reason: pain) 3 Days Qty: 12 0RF metoprolol tartrate 25 mg tablet 12.5 mg PO BID Qty: 90 3RF amiodarone 100 mg tablet 100 mg PO BID Qty: 180 3RF isosorbide mononitrate 30 mg tablet extended release 24 hr 30 mg PO BID Qty: 180 3RF potassium chloride 10 mEq tablet extended release 10 meq PO DAILY Qty: 60 11RF sucralfate [Carafate] 1 gram tablet 1 g PO QAC Qty: 90 0RF Rx Instructions: take two hours away from other medication. famotidine 40 mg tablet 40 mg PO DAILY Qty: 30 3RF furosemide 40 mg tablet 60 mg PO DAILY PRN (Reason: Weight Gain) Rx Instructions: as needed for weight gain of 3# in one day diltiazem HCl 120 mg capsule,extended release 24hr 120 mg PO BID Qty: 60 11RF doxycycline hyclate 100 mg capsule 100 mg PO BID Qty: 60 1RF Creon 36,000-114,000- 180,000 unit capsule,delayed release(DR/EC) See Rx Instructions PO .COMPLEX Qty: 320 3RF Rx Instructions: take 1-2 with snacks and 2-3 with meals Primary Care Provider: César Chinchilla Referrals: César Chinchilla MD [Primary Care Provider] - Disposition Disposition: Acute Care Hospital [facility]
[2023-02-13 10:05] LABS: Absolute Lymphocyte Count 0.51 X10^3/uL (0.83-4.51); Absolute Neutrophil Count 12.9 X10^3/uL (2.0-7.7); Basophil# 0.05 X10^3/uL; Basophil% 0.3 % (0-1); Eosinophil# 0.11 X10^3/uL; Eosinophils% 0.7 % (0-5); Hemoglobin 12.2 g/dL (13.0-16.5); Lymphocyte # 0.51 X10^3/ul (0.83-4.51); Lymphocyte % 3.4 % (19-41); Mean Corp Hgb Conc 33.9 g/dL (32-36); Mean Corpuscular Volume 109.1 fL (80-94); Mean Platelet Vol. 9.7 fl (6.2-12.0); Monocyte# 1.08 X10^3/uL; Monocyte% 7.3 % (0-10); NRBC Flagged by Analyzer 0 % (0-5); Neutrophil # 12.93 X10^3/uL (2.7-7.7); Neutrophil % 87.4 % (47-70); POSITIVE DIFFERENTIAL YES; Platelet Count 279 K/mm3 (150-450); RBC Distribution Width CV 15.1 % (11.6-14.6); RBC Distribution Width SD 60.2 fl (35.1-43.9); White Blood Count 14.8 K/mm3 (4.4-11.0)
[2023-02-13] MEDS: Ondansetron 4 MG/2 ML Vial IV (10:05)
[2023-02-13 10:14] LABS: Anion Gap 6 (5-15); BUN 32 mg/dL (7-18); BUN/Creat Ratio 17.3 RATIO (10-20); Calcium,Total 8.9 mg/dL (8.5-10.1); Chloride 106 mmol/L (98-107); Creatinine, Serum 1.85 mg/dL (0.70-1.30); EST Glomerular Filtration Rate 37 mL/min (>60); Est Glom Filt Rate - Afr Amer 45 mL/min (>60); Estimated Creatinine Clearance 28.73 ml/min; Glucose 103 mg/dL (74-106); Potassium 3.8 mmol/L (3.5-5.1); Sodium Level 140 mmol/L (136-145)
[2023-02-13 10:27] LABS: Differential Indicated SCAN CRITERIA MET
[2023-02-13 10:38] LABS: Bacteria 0 SEEN /hpf (None Seen); Mucous, Urine 0 SEEN /hpf (<or=2+); Red Blood Cells-Urine 0 SEEN /hpf (0-5); Squamous Epithelial Cells - UA 0 SEEN /hpf (0-5); White Blood Cells 0 SEEN /hpf (0-5)
[2023-02-13 10:39] LABS: Color, Urine Yellow (Yellow); Glucose, Dipstick Normal (Normal); Ketone-Dipstick Negative (Negative); Leukocyte Esterase-Dipstick Negative /ul (Negative); Nitrite-Dipstick Negative (Negative); Occult Blood-Urine 10 /ul (Negative); Protein-Dipstick 30 mg/dl (Negative); Urine Bilirubin Dipstick Negative (Negative); Urine Clarity Clear (Clear); Urine Urobilinogen Normal (Normal)
[2023-02-13] MEDS: Morphine 2 MG/ML Syringe IV (11:01)
--- NOTE | 2023-02-13 13:18 | HP.PCM.HOS_ITS ---
[facility] - General General Date of Admission: 02/13/23 Date of Service: 02/13/23 Chief Complaint: Back pain and abdominal pain. HPI Narrative RICHIE HANSEN, is a 82 M with history of chronic back pain for about 10 years status post [address] Richardson came to ER for back pain and abdominal pain. He describes back pain more on right lower back/paraspinal muscle group, 7-8/10 intensity, constant. Patient also complained of abdominal pain mainly around umbilical and pelvic area but back pain is worse than abdominal pain. He has abdominal pain for about 5 days, constant 4-5/10 intensity. He is also having 1-2 times vomiting mainly gastric type without hematemesis. No rectal bleed hematochezia or melena. No fever. Patient did not had a bowel movement for 4 to 5 days but passing flatus. CT abdomen without oral and IV contrast was done in ED which was individually reviewed. Wall thickening of sigmoid colon with focal fat stranding consistent with acute sigmoid diverticulitis. No evidence of abscess. Patient also has fecal material in the large bowel. No ascites or free air. Patient has history of diverticulitis in the past probably about 2 times, last 1 more than 10 years ago. He does not remember well. Patient given IV Zosyn, and is started on IV fluid and soapsuds enema. Patient has history of 3 lumbar surgeries in the past. [facility] Medical History Acute diverticulitis of intestine Acute gastrointestinal bleeding Acute kidney injury superimposed on chronic kidney disease Ambulates with cane Anemia Arthritis Atherosclerotic heart disease of [place] coronary artery without angina pectoris Atrial fibrillation Atypical atrial flutter (12/2020) Back pain Benign prostatic hyperplasia BPH (benign prostatic hyperplasia) Cancer Cardiology follow-up encounter Chronic anemia Chronic heart failure with preserved ejection fraction (HFpEF) Chronic kidney disease Chronic renal insufficiency Colitis CPAP (continuous positive airway pressure) dependence Debility Diarrhea Difficulty chewing Dysphagia Easy bruising Elevated LFTs Elevated liver enzymes Essential (primary) hypertension Excessive bleeding Gastric reflux GI bleed (2012) High cholesterol History of atrial fibrillation History of colon polyps History of diverticulitis History of echocardiogram History of edema History of heart attack History of hyperthyroidism History of leukemia History of pain when walking History of renal disease History of stress test HLD (hyperlipidemia) Hypertension Kidney disease Kidney stones Myocardial infarct Nausea and vomiting Non-rheumatic tricuspid valve insufficiency Non-smoker Nonrheumatic mitral (valve) insufficiency 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 Osteoarthritis Paroxysmal atrial fibrillation Secondary pulmonary arterial hypertension Sleep apnea Sleep apnea Stage 3b chronic kidney disease Thoracic aortic aneurysm (TAA) Thyroid disease Wears glasses Home Medications denosumab 60 mg/mL subcutaneous syringe (Prolia) 60 mg SQ .W1LTIGUM BONES 12/09/20 [History Last Taken 11/10/22] tamsulosin 0.4 mg capsule 0.4 mg PO QHS bladder 11/18/21 [History Last Taken 02/12/23] warfarin 2 mg tablet See Rx Instructions .Route .COMPLEX blood thinner 11/18/21 [History Last Taken 02/12/23] levothyroxine 25 mcg tablet 50 mcg PO DAILY 02/17/22 [History Last Taken 02/12/23] baclofen 5 mg tablet 5 mg PO TID PRN muscle spasms 05/01/22 [History Last Taken Unknown] coenzyme Q10 100 mg capsule (Co Q-10) 100 mg PO DAILY 05/01/22 [History Last Taken 02/12/23] pantoprazole 40 mg tablet,delayed release 40 mg PO DAILY 05/01/22 [History Last Taken 02/12/23] vitamin B complex 1 cap PO BID 05/01/22 [History Last Taken 02/12/23] metoprolol tartrate 25 mg tablet 12.5 mg PO BID #90 tabs 06/10/22 [Rx Last Taken 02/12/23] acetaminophen 500 mg capsule 1,000 mg PO Q6H PRN Pain 06/15/22 [History Last Taken Unknown] linaclotide 72 mcg capsule (Linzess) 72 mcg PO DAILY PRN Diarrhea 06/15/22 [History Last Taken Unknown] ascorbic acid (vitamin C) 500 mg tablet 500 mg PO DAILY 07/20/22 [History Last Taken 02/12/23] finasteride 5 mg tablet 5 mg PO DAILY 08/05/22 [History Last Taken 02/12/23] amiodarone 100 mg tablet 100 mg PO BID #180 tabs 08/09/22 [Rx Last Taken 02/12/23] loratadine 10 mg capsule 10 mg PO DAILY 08/16/22 [History Last Taken 02/12/23] multivitamin 1 tab PO DAILY 08/16/22 [History Last Taken 02/12/23] potassium chloride 10 mEq tablet,extended release 10 meq PO DAILY #60 tabs 10/14/22 [Rx Last Taken 02/12/23] sucralfate 1 gram tablet (Carafate) 1 g PO QAC #90 tabs 10/21/22 [Rx Last Taken 02/12/23] famotidine 40 mg tablet 40 mg PO DAILY #30 tabs 10/29/22 [Rx Last Taken 02/12/23] warfarin 4 mg tablet See Rx Instructions .Route .COMPLEX 11/23/22 [History Last Taken 02/11/23] furosemide 40 mg tablet 40 mg PO BID 11/25/22 [History Last Taken Unknown] ondansetron HCl 4 mg tablet 4 mg PO Q8H PRN Nausea And Vomiting 11/26/22 [ History Last Taken Unknown] diltiazem HCl 120 mg capsule,extended release 24 hr 120 mg PO BID heart #60 caps 11/30/22 [Rx Last Taken 02/12/23] oxycodone-acetaminophen 5 mg-325 mg tablet (Percocet) 1 tab PO Q6H PRN pain 3 days #12 tabs 01/05/23 [Rx Last Taken Unknown] doxycycline hyclate 100 mg capsule 100 mg PO BID #60 caps 01/06/23 [Rx Last Taken 02/12/23] dhthuh-iavndpsd-jyoxzcy 36,000-114,000-180,000 unit capsule,delay rel (Creon) See Rx Instructions PO .COMPLEX #320 caps 01/06/23 [Rx Last Taken 02/12/23] isosorbide dinitrate 10 mg tablet 5 mg PO BID . 02/13/23 [History Last Taken 02/12/23] lidocaine 4 % topical patch (Lidocaine Pain Relief) 1 patch topical Q12H PAIN 02/13/23 [History Last Taken 02/12/23] Allergy/AdvReac Type Severity Reaction Status Date / Time diclofenac Allergy rash Verified 02/13/23 09:16 prednisone Allergy Rash Verified 02/13/23 09:16 Family History Father Cancer Prostate cancer Mother Hypertension Sister Hypertension Surgical History History of back surgery History of back surgery History of cardiac catheterization History of cardioversion (06/18/19) History of coronary artery stent placement (08/04/00) History of electrophysiologic study (08/08/00) History of esophagogastroduodenoscopy (EGD) History of hemorrhoidectomy History of hernia repair History of left heart catheterization (07/17/12) History of Zenaida fundoplication History of radiofrequency ablation procedure for cardiac arrhythmia (11/11/11) Social History household members: none Smoking Status: Never smoker alcohol intake: never substance use type: does not use caffeine: No ROS ROS Narrative Constitutional: Reports fatigue and weakness. No fever. HEENT: Reports systems reviewed and no addt'l complaints, except as documented Respiratory/Chest: No acute shortness of breath or respiratory distress or wheezing. CVS: No chest pain or shortness of breath. Chronic murmur, valvular heart disease. Gastrointestinal: As described in HPI Genitourinary: Usually passes small amount of urine frequently. Mild burning micturition. Musculoskeletal: Chronic back pain status post 3 surgery. Has not walked outside the home for about 1 month. He used to walk 1 block with a cane before. Neurologic: Denies seizure-like symptoms. No acute strokelike symptoms. skin: No ulcer. No rash Endocrinology: Reports systems reviewed and no addt'l complaints, except as documented Hematologic/Lymphatic: Reports systems reviewed and no addt'l complaints, except as documented Rest 14 ROS are negative except as mentioned in HPI Vital Signs Vital Signs Vital Signs: 02/13/23 09:14 02/13/23 10:01 02/13/23 12:38 Temperature 97.4 F L 98.5 F Temperature Source Temporal Oral Pulse Rate 93 90 Respiratory Rate 16 16 18 Blood Pressure 150/105 H 149/96 H Blood Pressure Mean 120 113 Pulse Ox 94 95 Oxygen Delivery Method Room Air Room Air 02/13/23 12:40 Temperature Temperature Source Pulse Rate Respiratory Rate 16 Blood Pressure Blood Pressure Mean Pulse Ox Oxygen Delivery Method Weight Weight: 143 lb Body Mass Index (BMI) 21.7 Physical Exam Narrative General: Alert, Oriented x3, Cooperative HEENT: Atraumatic, PERRLA, EOMI, Normocephalic Oral: Oral mucosa dry. No Gingival or Mucosal Lesions/ Ulcerations Neck: Supple, No JVD, Negative Carotid Bruits Lungs: Air entry diminished in bilateral lung bases. No crepitation/rhonchi Cardiovascular: Regular sinus rhythm. Normal S1, Normal S2, holosystolic murmur over LLSB and cardiac apex. Abdomen: Bowel Sounds Present, Soft. Mild tenderness present over umbilical and hypogastric region. No distention or ascites. No guarding/rigidity. : No renal angle tenderness. No suprapubic tenderness. Extremities: No edema, Capillary Refill Less than 3 Seconds Skin: No rashes, No breakdown Musculoskeletal: No Tenderness to Palpation of Joints or Extremities. Deg enerative arthritis of her knees and hip joints. Spine: Tenderness over right paraspinal muscles in lumbar region. ROM restricted. Lumbar surgical scar. Neurological: Cranial nerves II-XII grossly intact, DTR 2+/4 and Symmetrical, Neuro grossly intact Psych/Mental Status: Flat affect Results Lab / Micro Data Result Diagrams: 02/13/23 09:55 02/13/23 09:55 Labs: Laboratory Results - last 24 hr 02/13/23 09:55: WBC 14.8 H, RBC 3.30 L, Hgb 12.2 L, Hct 36.0 L, MCV 109.1 H, MCH 37.0 H, MCHC 33.9, RDW Std Deviation 60.2 H, RDW Coeff of Pablo 15.1 H, Plt Count 279, MPV 9.7, Immature Gran % (Auto) 0.900, Neut % (Auto) 87.4 H, Lymph % (Auto) 3.4 L, [place] % (Auto) 7.3, Eos % (Auto) 0.7, Baso % (Auto) 0.3, Absolute Neuts (auto) 12.9 H, Absolute Lymphs (auto) 0.51 L, Nucleated RBC % 0 02/13/23 09:55: Sodium 140, Potassium 3.8, Chloride 106, Carbon Dioxide 28.0, Anion Gap 6, BUN 32 H, Creatinine 1.85 H, Estim Creat Clear Calc 28.73, Est GFR (MDRD) Af Amer 45 L, Est GFR (MDRD) Non-Af 37 L, BUN/Creatinine Ratio 17.3, Glucose 103, Calcium 8.9 02/13/23 10:30: Urine Color Yellow, Urine Clarity Clear, Urine pH 7.0, Ur Specific [place] 1.010, Urine Protein 30 H, Urine Glucose (UA) Normal, Urine Ketones Negative, Urine Occult Blood 10 H, Urine Nitrite Negative, Urine Bilirubin Negative, Urine Urobilinogen Normal, Ur Leukocyte Esterase Negative, Urine RBC 0 SEEN, Urine WBC 0 SEEN, Ur Squamous Epith Cells 0 SEEN, Urine Bacteria 0 SEEN, Urine Mucus 0 SEEN Radiology Impression Abdomen/Pelvis CT 02/13/23 09:46 IMPRESSION: 1. Acute sigmoid diverticulitis without evidence of abscess or perforation. 2. No evidence of urinary tract stone disease. Electronically Signed: Frandy Faustin MD at 10:37 EDT , Assessment & Plan Assessment/Plan (1) Acute exacerbation of chronic low back pain: (2) Acute diverticulitis: PLAN: Plan This is a 82-year-old gentleman being admitted for acute on chronic back pain and sigmoid diverticulitis 1. Acute on chronic back pain: Patient follows Dr. Richardson and gets lumbar injection. On Percocet 5/325 mg, half tablet once daily. Patient is admitted to [facility] floor. On morphine only for severe pain. Patient on Tylenol. Avoid high-dose of opioids. 2. Acute uncomplicated sigmoid diverticulitis: Patient having nausea and vomiting therefore indication for admission. IV fluid Ringer lactate. IV Zosyn. Last colonoscopy in December 2020 reported preparation of colon poor. Diverticulosis in sigmoid colon, descending colon, splenic flexure and ascending colon. 3. Chronic severe constipation: Soapsuds enema ordered in ED. Senna S2 tablet twice daily, MiraLAX 17 g twice daily and Dulcolax suppository. If patient does not get BM, will need further soapsuds enema. 4. Cardiac conditions: Patient has history of coronary artery status post stent, chronic A-fib/flutter status post radiofrequency ablation, valvular heart disease; MR TR and mild AI, chronic HFpEF: Patient had last echo in December 2021, reported EF 55%, mildly dilated aortic root with mild AI. Moderate pulmonary hypertension 2+ TR and 2+ MR. Patient also had cardiac stent/PCI preoperative i n 2013. Patient does not have acute chest pain or shortness of breath. Twelve-lead EKG ordered. Continue home medications amiodarone, metoprolol and Imdur. Patient on warfarin. PT/INR ordered. 5. Hypothyroidism, hypertension and dyslipidemia: Patient on Synthroid continued. 6. GERD with history of GI bleed: Patient follows Dr. Hodges. 7. CKD stage IV: Patient admitting creatinine is 1.85 BUN 32. Baseline creatinine around 2.5-2.75. Estimated creatinine clearance about 25 mill per minute 8. Chronic macrocytic anemia: Patient hemoglobin is 12.2/36 on baseline. Patient had EGD in?06.30.22 noting tortuous esophagus; medium hiatal hernia. Capsule endoscopy noting blood in early study due to capsule placement. No abnormality or signs of active or recently bleeding areas. Patient also follows Dr. Arnold. DVT prophylaxis: Moderate-risk, patient on warfarin at home. PT and INR to t itrate the dose accordingly. Discontinue if platelet count drops less than 50,000 or hemoglobin less than 8 g% Living will/advanced directive/end of life care: Patient does not have living will or advanced directive. After discussion of benefits/risks procedures involved with full code, DNR CC arrest and DNR CC, the patient opted for full code. Patient does want artificial life support including intubation, tube feed, ventilator and/chest compression, central venous catheter, vasopressor and DC shock if needed Total time spent in [id number] encounter in discussion of advanced direct mckayla 17 minutes. Laboratory Results 02/13/23 09:55: WBC 14.8 H, RBC 3.30 L, Hgb 12.2 L, Hct 36.0 L, MCV 109.1 H, MCH 37.0 H, MCHC 33.9, RDW Std Deviation 60.2 H, RDW Coeff of Pablo 15.1 H, Plt Count 279, MPV 9.7, Immature Gran % (Auto) 0.900, Neut % (Auto) 87.4 H, Lymph % (Auto) 3.4 L, [place] % (Auto) 7.3, Eos % (Auto) 0.7, Baso % (Auto) 0.3, Absolute Neuts (auto) 12.9 H, Absolute Lymphs (auto) 0.51 L, Nucleated RBC % 0 02/13/23 09:55: Sodium 140, Potassium 3.8, Chloride 106, Carbon Dioxide 28.0, Anion Gap 6, BUN 32 H, Creatinine 1.85 H, Estim Creat Clear Calc 28.73, Est GFR (MDRD) Af Amer 45 L, Est GFR (MDRD) Non-Af 37 L, BUN/Creatinine Ratio 17.3, Glucose 103, Calcium 8.9 02/13/23 10:30: Urine Color Yellow, Urine Clarity Clear, Urine pH 7.0, Ur Specific [place] 1.010, Urine Protein 30 H, Urine Glucose (UA) Normal, Urine Ketones Negative, Urine Occult Blood 10 H, Urine Nitrite Negative, Urine Bilirubin Negative, Urine Urobilinogen Normal, Ur Leukocyte Esterase Negative, Urine RBC 0 SEEN, Urine WBC 0 SEEN, Ur Squamous Epith Cells 0 SEEN, Urine Bacteria 0 SEEN, Urine Mucus 0 SEEN Charges/Coding Visit Charges Inpatient E&M: 56852 Init Hosp L3 Procedures Hospitalists Procedures: 26134 Advncd Care Plan 30 Min
[2023-02-13] MEDS: Morphine 4 MG/ML Syringe IV (13:25)
[2023-02-13 15:07] LABS: International Normalized Ratio 2.9; Prothrombin Time (Protime)PT. 30.3 SECONDS (11.7-14.9)
[2023-02-13] MEDS: Bisacodyl 10 MG Suppository RC (15:25)
[2023-02-13] MEDS: Acetaminophen 500 MG Tablet 1000 MG PO ×2 (16:18→23:09)
[2023-02-13] MEDS: KCL 20MEQ in 0.9% NS 20 MEQ/1,000 ML IV.SOLN. 100 MEQ IV (16:19)
[2023-02-13] MEDS: 0.9% Saline Lock 10 ML Syringe IV (16:19)
[2023-02-13] MEDS: Sucralfate 1 GM Tablet PO (18:49)
[2023-02-13] MEDS: Metoprolol Tartrate 25 MG Tablet 12.5 MG PO (21:16)
[2023-02-13] MEDS: Amiodarone 200 MG Tablet 100 MG PO (21:16)
[2023-02-13] MEDS: Isosorbide DN 10 MG Tablet 5 MG PO (21:17)
[2023-02-13] MEDS: Polyethylene Glycol 3350 17 GM PACKET PO (21:18)
[2023-02-13] MEDS: Tamsulosin HCl 0.4 MG Capsule PO (21:18)
[2023-02-13] MEDS: Senna/Docusate Sodium 1 Tablet 2 TABLET PO (21:18)
[2023-02-13] MEDS: dilTIAZem CD 120 MG Capsule PO (21:18)
[2023-02-14 02:00] VITALS: BP 127/80; PULSE 81; RESP 16; TEMP 36.8; O2SAT 96
[2023-02-14] MEDS: Morphine 2 MG/ML Syringe IV ×2 (02:05→22:25)
[2023-02-14] MEDS: KCL 20MEQ in 0.9% NS 20 MEQ/1,000 ML IV.SOLN. 100 MEQ IV (02:07)
[2023-02-14] MEDS: Levothyroxine 50 MCG Tablet PO (05:45)
[2023-02-14] MEDS: Acetaminophen 500 MG Tablet 1000 MG PO ×3 (05:45→22:34)
[2023-02-14 06:25] LABS: Absolute Lymphocyte Count 0.59 X10^3/uL (0.83-4.51); Absolute Neutrophil Count 9.9 X10^3/uL (2.0-7.7); Basophil# 0.06 X10^3/uL; Basophil% 0.5 % (0-1); Eosinophil# 0.23 X10^3/uL; Eosinophils% 1.9 % (0-5); Hematocrit 34.4 % (40-54); Hemoglobin 11.4 g/dL (13.0-16.5); Lymphocyte # 0.59 X10^3/ul (0.83-4.51); Mean Corp Hgb Conc 33.1 g/dL (32-36); Mean Corpuscular Hgb 36.7 pg (27.0-32.0); Mean Corpuscular Volume 110.6 fL (80-94); Mean Platelet Vol. 9.6 fl (6.2-12.0); Monocyte# 0.89 X10^3/uL; Monocyte% 7.5 % (0-10); NRBC Flagged by Analyzer 0 % (0-5); Neutrophil # 9.92 X10^3/uL (2.7-7.7); Neutrophil % 84.1 % (47-70); POSITIVE DIFFERENTIAL YES; Platelet Count 246 K/mm3 (150-450); RBC Distribution Width CV 15.1 % (11.6-14.6); RBC Distribution Width SD 62.1 fl (35.1-43.9); Red Blood Count 3.11 M/mm3 (4.6-6.2); White Blood Count 11.8 K/mm3 (4.4-11.0)
[2023-02-14 06:31] LABS: Prothrombin Time (Protime)PT. 31.5 SECONDS (11.7-14.9)
[2023-02-14] MEDS: Sucralfate 1 GM Tablet PO ×3 (06:36→17:20)
[2023-02-14 06:42] LABS: Anion Gap 4 (5-15); BUN 24 mg/dL (7-18); BUN/Creat Ratio 14.8 RATIO (10-20); Calcium,Total 8.7 mg/dL (8.5-10.1); Chloride 106 mmol/L (98-107); Creatinine, Serum 1.62 mg/dL (0.70-1.30); EST Glomerular Filtration Rate 44 mL/min (>60); Est Glom Filt Rate - Afr Amer 53 mL/min (>60); Estimated Creatinine Clearance 31.43 ml/min; Glucose 87 mg/dL (74-106); Potassium 4.2 mmol/L (3.5-5.1); Sodium Level 137 mmol/L (136-145)
[2023-02-14 06:49] LABS: Differential Indicated SCAN CRITERIA MET
[2023-02-14 06:50] LABS: Anisocytosis 1+; Macrocytosis 2+
[2023-02-14 07:46] VITALS: BP 173/99; PULSE 89; RESP 16; TEMP 36.6; O2SAT 95
[2023-02-14] MEDS: Multivitamins,Therapeutic Tablet 1 TABLET PO (08:09)
[2023-02-14] MEDS: Creon 24,000 unit DR Capsule 3 CAP PO ×3 (08:09→17:20)
--- NOTE | 2023-02-14 08:23 | PN.HOSP_ITS ---
Reason for Visit Reason for Visit: Diagnoses Other chronic pain (02/13/23) Diverticulitis of intestine, part unspecified, without perforation or abscess without bleeding (02/13/23) Low back pain, unspecified (02/13/23) Subjective Subjective Reports he has had several small bowel movements, still feels somewhat nauseous but is tolerating clear liquids Objective Data Objective Data Vital Signs: Vital Signs Temp Pulse Resp BP Pulse Ox O2 Del Method 97.9 F 89 16 173/99 H 95 Room Air 02/14/23 07:46 02/14/23 07:46 02/14/23 07:46 02/14/23 07:46 02/14/23 07:46 02/14/23 07:46 Oxygen Delivery Method Room Air Weight: 62.142 kg Body Mass Index (BMI) 20.8 Intake & Output: Intake and Output for Last 24 Hours 02/12/23 02/13/23 02/14/23 23:59 23:59 23:59 Intake Total 450 / 450 1150 / 1150 Output Total 100 / 300 300 / 300 Balance 350 / 150 850 / 850 Lab / Micro Data Result Diagrams: 02/14/23 06:10 02/14/23 06:10 Labs: Laboratory Results - last 24 hr 02/13/23 09:55: WBC 14.8 H, RBC 3.30 L, Hgb 12.2 L, Hct 36.0 L, MCV 109.1 H, MCH 37.0 H, MCHC 33.9, RDW Std Deviation 60.2 H, RDW Coeff of Pablo 15.1 H, Plt Count 279, MPV 9.7, Immature Gran % (Auto) 0.900, Neut % (Auto) 87.4 H, Lymph % (Auto) 3.4 L, [place] % (Auto) 7.3, Eos % (Auto) 0.7, Baso % (Auto) 0.3, Absolute Neuts (auto) 12.9 H, Absolute Lymphs (auto) 0.51 L, Nucleated RBC % 0 02/13/23 09:55: Sodium 140, Potassium 3.8, Chloride 106, Carbon Dioxide 28.0, Anion Gap 6, BUN 32 H, Creatinine 1.85 H, Estim Creat Clear Calc 28.73, Est GFR (MDRD) Af Amer 45 L, Est GFR (MDRD) Non-Af 37 L, BUN/Creatinine Ratio 17.3, Glucose 103, Calcium 8.9 02/13/23 10:30: Urine Color Yellow, Urine Clarity Clear, Urine pH 7.0, Ur Specific [place] 1.010, Urine Protein 30 H, Urine Glucose (UA) Normal, Urine Ketones Negative, Urine Occult Blood 10 H, Urine Nitrite Negative, Urine Bilirubin Negative, Urine Urobilinogen Normal, Ur Leukocyte Esterase Negative, Urine RBC 0 SEEN, Urine WBC 0 SEEN, Ur Squamous Epith Cells 0 SEEN, Urine Bacteria 0 SEEN, Urine Mucus 0 SEEN 02/13/23 14:46: PT 30.3 H, INR 2.9 02/14/23 06:10: PT 31.5 H, INR 3.0 02/14/23 06:10: WBC 11.8 H, RBC 3.11 L, Hgb 11.4 L, Hct 34.4 L, MCV 110.6 H, MCH 36.7 H, MCHC 33.1, RDW Std Deviation 62.1 H, RDW Coeff of Pablo 15.1 H, Plt Count 246, MPV 9.6, Immature Gran % (Auto) 1.000 H, Neut % (Auto) 84.1 H, Lymph % (Auto) 5.0 L, [place] % (Auto) 7.5, Eos % (Auto) 1.9, Baso % (Auto) 0.5, Absolute Neuts (auto) 9.9 H, Absolute Lymphs (auto) 0.59 L, Nucleated RBC % 0, Anisocyt osis 1+, Macrocytosis 2+ 02/14/23 06:10: Sodium 137, Potassium 4.2, Chloride 106, Carbon Dioxide 27.0, Anion Gap 4 L, BUN 24 H, Creatinine 1.62 H, Estim Creat Clear Calc 31.43, Est GFR (MDRD) Af Amer 53 L, Est GFR (MDRD) Non-Af 44 L, BUN/Creatinine Ratio 14.8, Glucose 87, Calcium 8.7 Radiography Diagnostic Testing: Radiology Impression Abdomen/Pelvis CT 02/13/23 09:46 IMPRESSION: 1. Acute sigmoid diverticulitis without evidence of abscess or perforation. 2. No evidence of urinary tract stone disease. Electronically Signed: Frandy Faustin MD at 10:37 EDT , Physical Exam Narrative General: Alert, oriented, no apparent distress HEENT: Atraumatic, normocephalic Eyes: Anicteric, normal conjunctiva, extraocular movements grossly intact Neck: Supple Respiratory: Clear to auscultation bilaterally, normal respiratory effort Cardiovascular: Regular rate and rhythm GI: Soft, mildly tender without rebound, guarding, rigidity, nondistended Extremities: No edema Musculoskeletal: Moving all extremities Neuro: No overt focal neurological deficits Skin: No rashes appreciated Psych: Fairly cooperative, somewhat restricted affect Assessment & Plan Assessment/Plan (1) Acute exacerbation of chronic low back pain: (2) Acute diverticulitis: PLAN: Plan #Acute uncomplicated sigmoid diverticulitis -Here w/ nausea and vomiting/not tolerating PO on presentation necessitating IVF and admission -Leukocytosis of 14.8 on admission, CT scan obtained in ED with no stones but with acute sigmoid diverticulitis with no complication -IV zosyn -Last colonoscopy December 2020 but w/ poor colon prep, will need repeat on outpatient basis -Advance diet as tolerated #Acute on chronic back pain -f/w Dr. Richardson on outpt pain system with first injection 5 days ago #Constipation -Constipation for 3 to 4 days with some mild lower abdominal pain -Soap suds enema in ED -Senna S2 tablet twice daily, MiraLAX 17 g twice daily and Dulcolax suppository -Continue aggressive bowel regimen #CKD IIIb -Avoid nephro toxic agents #afib -On amio, dilt -Coumadin, INR 3.0 -Continue to monitor, continue coumadin #CAD s/p stent 2013/Mod pulm HTN/Mod TR and mod MR -last echo in December 2021, reported EF 55%, mildly dilated aortic root with mild AI.? Moderate pulmonary hypertension 2+ TR and 2+ MR -Low threshold to resume furosemide #Hypothyroidism -Continue synthroid #Chronic macrocytic anemia: -Patient hemoglobin is 12.2/36 on baseline. -Patient had EGD in?06.30.22 noting tortuous esophagus; medium hiatal hernia. -Capsule endoscopy noting blood in early study due to capsule placement -No abnormality or signs of active or recently bleeding areas -Patient also follows Dr. Prah. #Hx kidney stones -No present symptoms -Advise adequate hydration #BPH -Finasteride -tamsulosin #GERD -hx Zenaida fundoplication #GERD with history of GI bleed -Patient follows Dr. Hodges. #DVT ppx: Presently therapeutic on Coumadin Emy Willard MD Time spent in the patient's overall evaluation,decision-making process, review of diagnostic data, adjustment of management, discussion with other providers, nursing nursing and ancillary staff involved in patient's care documentation, 36 minutes Charges/Coding Visit Charges Inpatient E&M: 09385 Subs Hosp L3
[2023-02-14 08:25] VITALS: O2SAT 93
--- NOTE | 2023-02-14 10:15 | CASEMGMT ---
Addendum entered by Diane Redding 02/14/23 10:35: Pt screened with [facility] Palliative Care Screening Tool, pt meets criteria. SW updated that SW from [facility] felt pt may benefit. RADHA PORTER into pt room, pt declined referral at this time. Original Note: RADHA PORTER Assessment: Face to Face with pt for initial transition planning/care coordination assessment. RADHA PORTER introduced self and role at [facility], pt voices understanding and consents to assessment. Pt is A/O x4 and answers all questions appropriately at this time. Pt lying in bed in no distress. Care providers, pharmacy, and demographics verified/updated. Admitting Dx: Acute on chronic back pain PCP:Amor Specialists:Dylan, pain mgmt; Prah, onc; Friend, GI; Jesse, cardio [facility]erred [facility]acy[facility] Insurance: [employer] and [employer] Prescription Benefit: yes LNOK: Neelima Durant, sister in law; Olivia Dunn, sister Living Arrangements: Pt lives alone in a single story home with 2 steps to enter with a rail. Pt reports typically he is I in ADL's but within the last two weeks his back pain has made it more difficult to bathe and dress. Pt states he orders meals from restaurants and his sister in law picks them up for him. Transportation: Pt drives self and denies concerns with transportation. DME/HHC/SNF: Pt has a cane, FWW and shower chair at home. Pt states he recently started using the FWW. Pt is active with [facility]. He denies previous HHC or SNF stays. Pt states no concerns with going home at time of dc. PT did not recommend therapy. Pt does want to continue with [facility]. Message to Earl to see how pt is managing at home as SW made aware nursing has been seeing pt daily. Pt states no further concerns/needs. CM to follow. Advised pt to ask CM if any further question/concerns/needs arise, voices understanding. Pt Goal: Home with [facility] to resume Plan: Home with [facility] to resume vs HHC
[2023-02-14] MEDS: 0.9% Saline Lock 10 ML Syringe IV (10:29)
[2023-02-14] MEDS: Ondansetron 4 MG/2 ML Vial IV (10:29)
[2023-02-14] MEDS: dilTIAZem CD 120 MG Capsule PO ×2 (10:59→22:27)
[2023-02-14] MEDS: Bisacodyl 10 MG Suppository RC (11:01)
[2023-02-14] MEDS: Amiodarone 200 MG Tablet 100 MG PO ×2 (11:01→22:27)
[2023-02-14] MEDS: Isosorbide DN 10 MG Tablet 5 MG PO ×2 (11:02→22:27)
[2023-02-14] MEDS: Potassium Chloride Oral Tablet 10 MEQ PO (11:02)
[2023-02-14 11:04] VITALS: PULSE 89
[2023-02-14] MEDS: Lidocaine 5% Patch 1 PATCH TOPICAL (11:04)
[2023-02-14] MEDS: Metoprolol Tartrate 25 MG Tablet 12.5 MG PO ×2 (11:04→22:35)
[2023-02-14] MEDS: Finasteride 5 MG Tablet PO (11:05)
[2023-02-14] MEDS: Polyethylene Glycol 3350 17 GM PACKET PO ×2 (11:05→22:39)
[2023-02-14] MEDS: Pantoprazole Sodium 40 MG Tablet PO (11:06)
[2023-02-14] MEDS: Senna/Docusate Sodium 1 Tablet 2 TABLET PO ×2 (11:06→22:26)
[2023-02-14] MEDS: Ascorbic Acid 500 MG Tablet PO (11:06)
[2023-02-14] MEDS: Tamsulosin HCl 0.4 MG Capsule PO (22:27)
[2023-02-14 22:34] VITALS: BP 138/88; PULSE 88; RESP 18; TEMP 36.7; O2SAT 92
[2023-02-14 22:35] VITALS: PULSE 88
[2023-02-15 04:44] VITALS: BMI 20.8
[2023-02-15 05:19] LABS: Absolute Lymphocyte Count 0.65 X10^3/uL (0.83-4.51); Absolute Neutrophil Count 12.4 X10^3/uL (2.0-7.7); Basophil# 0.06 X10^3/uL; Basophil% 0.4 % (0-1); Eosinophils% 2.1 % (0-5); Hematocrit 37.6 % (40-54); Hemoglobin 12.9 g/dL (13.0-16.5); Lymphocyte # 0.65 X10^3/ul (0.83-4.51); Lymphocyte % 4.5 % (19-41); Mean Corp Hgb Conc 34.3 g/dL (32-36); Mean Corpuscular Hgb 36.9 pg (27.0-32.0); Mean Corpuscular Volume 107.4 fL (80-94); Mean Platelet Vol. 10.1 fl (6.2-12.0); Monocyte# 0.98 X10^3/uL; Monocyte% 6.8 % (0-10); NRBC Flagged by Analyzer 0 % (0-5); Neutrophil # 12.36 X10^3/uL (2.7-7.7); Neutrophil % 85.1 % (47-70); Platelet Count 291 K/mm3 (150-450); RBC Distribution Width SD 59.7 fl (35.1-43.9); White Blood Count 14.5 K/mm3 (4.4-11.0)
[2023-02-15 05:32] LABS: International Normalized Ratio 3.6; Prothrombin Time (Protime)PT. 36.7 SECONDS (11.7-14.9)
[2023-02-15 06:00] VITALS: BP 132/79; PULSE 86; RESP 16; TEMP 36.5; O2SAT 94
[2023-02-15] MEDS: Levothyroxine 50 MCG Tablet PO (06:06)
[2023-02-15] MEDS: Acetaminophen 500 MG Tablet 1000 MG PO ×3 (06:06→21:43)
[2023-02-15] MEDS: Sucralfate 1 GM Tablet PO ×3 (06:06→16:54)
[2023-02-15 06:11] LABS: Anion Gap 6 (5-15); BUN 20 mg/dL (7-18); BUN/Creat Ratio 13.2 RATIO (10-20); Calcium,Total 8.9 mg/dL (8.5-10.1); Chloride 106 mmol/L (98-107); Creatinine, Serum 1.52 mg/dL (0.70-1.30); EST Glomerular Filtration Rate 47 mL/min (>60); Est Glom Filt Rate - Afr Amer 57 mL/min (>60); Estimated Creatinine Clearance 33.58 ml/min; Glucose 84 mg/dL (74-106); Potassium 4.1 mmol/L (3.5-5.1); Sodium Level 137 mmol/L (136-145)
[2023-02-15 09:10] VITALS: BP 122/75; PULSE 89; RESP 16; TEMP 36.8; O2SAT 96
[2023-02-15] MEDS: Multivitamins,Therapeutic Tablet 1 TABLET PO (09:24)
[2023-02-15] MEDS: Creon 24,000 unit DR Capsule 3 CAP PO ×3 (09:24→16:54)
[2023-02-15] MEDS: Polyethylene Glycol 3350 17 GM PACKET PO (09:25)
[2023-02-15] MEDS: dilTIAZem CD 120 MG Capsule PO ×2 (09:25→21:43)
[2023-02-15] MEDS: Pantoprazole Sodium 40 MG Tablet PO (09:26)
[2023-02-15] MEDS: Senna/Docusate Sodium 1 Tablet 2 TABLET PO ×2 (09:26→21:43)
[2023-02-15] MEDS: Amiodarone 200 MG Tablet 100 MG PO ×2 (09:27→21:44)
[2023-02-15 09:28] VITALS: PULSE 89
[2023-02-15] MEDS: Metoprolol Tartrate 25 MG Tablet 12.5 MG PO ×2 (09:28→22:16)
[2023-02-15] MEDS: Lidocaine 5% Patch 1 PATCH TOPICAL (09:28)
[2023-02-15] MEDS: Finasteride 5 MG Tablet PO (09:28)
[2023-02-15] MEDS: Isosorbide DN 10 MG Tablet 5 MG PO ×2 (09:30→21:44)
[2023-02-15] MEDS: Potassium Chloride Oral Tablet 10 MEQ PO (09:34)
[2023-02-15] MEDS: Bisacodyl 10 MG Suppository RC (09:39)
[2023-02-15] MEDS: Ascorbic Acid 500 MG Tablet PO (09:40)
--- NOTE | 2023-02-15 12:28 | PN.HOSP_ITS ---
Reason for Visit Reason for Visit: Diagnoses Other chronic pain (02/13/23) Diverticulitis of intestine, part unspecified, without perforation or abscess without bleeding (02/13/23) Low back pain, unspecified (02/13/23) Subjective Subjective Slowly improving, still some nausea but tolerating full liquids, will advance later today. Still having small bowel movements, abdominal pain improving Objective Data Objective Data Vital Signs: Vital Signs Temp Pulse Resp BP Pulse Ox O2 Del Method 98.2 F 89 16 122/75 H 96 Room Air 02/15/23 09:10 02/15/23 09:28 02/15/23 09:10 02/15/23 09:10 02/15/23 09:10 02/15/23 09:10 Oxygen Delivery Method Room Air Weight: 62.284 kg Body Mass Index (BMI) 20.8 Intake & Output: Intake and Output for Last 24 Hours 02/13/23 02/14/23 02/15/23 23:59 23:59 23:59 Intake Total 450 / 450 1250 / 1250 50 / 50 Output Total 100 / 300 300 / 500 200 / 200 Balance 350 / 150 950 / 750 -150 / -150 Lab / Micro Data Result Diagrams: 02/15/23 04:27 02/15/23 04:27 Labs: Laboratory Results - last 24 hr 02/15/23 04:27: PT 36.7 H, INR 3.6 02/15/23 04:27: WBC 14.5 H, RBC 3.50 L, Hgb 12.9 L, Hct 37.6 L, MCV 107.4 H, MCH 36.9 H, MCHC 34.3, RDW Std Deviation 59.7 H, RDW Coeff of Pablo 15.0 H, Plt Count 291, MPV 10.1, Immature Gran % (Auto) 1.100 H, Neut % (Auto) 85.1 H, Lymph % (Auto) 4.5 L, [place] % (Auto) 6.8, Eos % (Auto) 2.1, Baso % (Auto) 0.4, Absolute Neuts (auto) 12.4 H, Absolute Lymphs (auto) 0.65 L, Nucleated RBC % 0 02/15/23 04:27: Sodium 137, Potassium 4.1, Chloride 106, Carbon Dioxide 25.0, Anion Gap 6, BUN 20 H, Creatinine 1.52 H, Estim Creat Clear Calc 33.58, Est GFR (MDRD) Af Amer 57 L, Est GFR (MDRD) Non-Af 47 L, BUN/Creatinine Ratio 13.2, Glucose 84, Calcium 8.9 Physical Exam Narrative General: Alert, oriented, no apparent distress HEENT: Atraumatic, normocephalic Eyes: Anicteric, normal conjunctiva, extraocular movements grossly intact Neck: Supple Respiratory: Clear to auscultation bilaterally, normal respiratory effort Cardiovascular: Regular rate and rhythm GI: Soft, mildly tender in lower quadrants without rebound, guarding, rigidity, nondistended Extremities: No edema Musculoskeletal: Moving all extremities Neuro: No overt focal neurological deficits Skin: No rashes appreciated Psych: Cooperative Assessment & Plan Assessment/Plan (1) Acute exacerbation of chronic low back pain: (2) Acute diverticulitis: PLAN: Plan #Acute uncomplicated sigmoid diverticulitis -Here w/ nausea and vomiting/not tolerating PO on presentation necessitating IVF and admission -Leukocytosis of 14.8 on admission, CT scan obtained in ED with no stones but with acute sigmoid diverticulitis with no complication -IV zosyn -Last colonoscopy December 2020 but w/ poor colon prep, will need repeat on outpatient basis -Advance diet as tolerated -02/15: Slowly improving, will attempt to advance diet for dinner, patient doing well will likely discharge tomorrow #Acute on chronic back pain -f/w Dr. Richardson on outpt pain system with first injection 5 days ago #Constipation -Constipation for 3 to 4 days with some mild lower abdominal pain -Soap suds enema in ED -Senna S2 tablet twice daily, MiraLAX 17 g twice daily and Dulcolax suppository -Continue aggressive bowel regimen #CKD IIIb -Avoid nephro toxic agents #afib -On amio, dilt -Coumadin, INR 3.0 -Continue to monitor, continue coumadin -02/15: Coumadin on hold due to INR of 3.6, continue to trend and adjust. At this time does not require reversal #CAD s/p stent 2013/Mod pulm HTN/Mod TR and mod MR -last echo in December 2021, reported EF 55%, mildly dilated aortic root with mild AI.? Moderate pulmonary hypertension 2+ TR and 2+ MR -Low threshold to resume furosemide #Hypothyroidism -Continue synthroid #Chronic macrocytic anemia: -Patient hemoglobin is 12.2/36 on baseline. -Patient had EGD in?06.30.22 noting tortuous esophagus; medium hiatal hernia. -Capsule endoscopy noting blood in early study due to capsule placement -No abnormality or signs of active or recently bleeding areas -Patient also follows Dr. Arnold. #Hx kidney stones -No present symptoms -Advise adequate hydration #BPH -Finasteride -tamsulosin #GERD -hx Zenaida fundoplication #GERD with history of GI bleed -Patient follows Dr. Hodges. #DVT ppx: Presently therapeutic on Coumadin Emy Willard MD Time spent in the patient's overall evaluation,decision-making process, review of diagnostic data, adjustment of management, discussion with other providers, nursing nursing and ancillary staff involved in patient's care documentation, 30 minutes Charges/Coding Visit Charges Inpatient E&M: 32473 Subs Hosp L2
[2023-02-15 14:44] VITALS: BP 116/81; PULSE 85; RESP 16; TEMP 36.7; O2SAT 96
[2023-02-15] MEDS: Morphine 2 MG/ML Syringe IV (21:41)
[2023-02-15] MEDS: 0.9% Saline Lock 10 ML Syringe IV (21:42)
[2023-02-15] MEDS: Tamsulosin HCl 0.4 MG Capsule PO (21:45)
[2023-02-15 22:16] VITALS: PULSE 82
[2023-02-15 22:30] VITALS: BP 124/84; PULSE 87; RESP 18; TEMP 37; O2SAT 96
[2023-02-16 05:00] VITALS: BP 131/86; PULSE 79; RESP 18; TEMP 36.7; O2SAT 96
[2023-02-16 05:16] VITALS: BMI 20.8
[2023-02-16] MEDS: Acetaminophen 500 MG Tablet 1000 MG PO (06:23)
[2023-02-16] MEDS: Levothyroxine 50 MCG Tablet PO (06:23)
[2023-02-16] MEDS: Sucralfate 1 GM Tablet PO ×2 (06:24→11:10)
[2023-02-16 06:35] LABS: Absolute Lymphocyte Count 0.59 X10^3/uL (0.83-4.51); Basophil# 0.05 X10^3/uL; Basophil% 0.4 % (0-1); Eosinophils% 2.5 % (0-5); Hematocrit 34.3 % (40-54); Hemoglobin 11.5 g/dL (13.0-16.5); Lymphocyte # 0.59 X10^3/ul (0.83-4.51); Lymphocyte % 4.9 % (19-41); Mean Corp Hgb Conc 33.5 g/dL (32-36); Mean Corpuscular Hgb 36.1 pg (27.0-32.0); Mean Corpuscular Volume 107.5 fL (80-94); Monocyte# 0.93 X10^3/uL; Monocyte% 7.8 % (0-10); NRBC Flagged by Analyzer 0 % (0-5); Neutrophil # 9.95 X10^3/uL (2.7-7.7); Neutrophil % 83.3 % (47-70); POSITIVE DIFFERENTIAL YES; Platelet Count 271 K/mm3 (150-450); RBC Distribution Width CV 15.3 % (11.6-14.6); RBC Distribution Width SD 61.1 fl (35.1-43.9); Red Blood Count 3.19 M/mm3 (4.6-6.2)
[2023-02-16 06:44] LABS: Prothrombin Time (Protime)PT. 43.6 SECONDS (11.7-14.9)
[2023-02-16 06:48] LABS: Differential Indicated SCAN CRITERIA MET
[2023-02-16 06:51] LABS: International Normalized Ratio 4.5
[2023-02-16 06:58] LABS: Differential Comment SCANNED
[2023-02-16 07:18] LABS: ALB/GLOB Ratio 0.7 RATIO (0.9-2.4); AST(SGOT) 25 U/L (15-37); Alanine Aminotransfer ALT/SGPT 43 U/L (16-61); Albumin, Serum 2.6 g/dL (3.2-5.0); Alkaline Phosphatase 76 U/L (45-117); Anion Gap 4 (5-15); BUN 24 mg/dL (7-18); BUN/Creat Ratio 12.8 RATIO (10-20); Calcium,Total 8.5 mg/dL (8.5-10.1); Chloride 107 mmol/L (98-107); Creatinine, Serum 1.87 mg/dL (0.70-1.30); EST Glomerular Filtration Rate 37 mL/min (>60); Est Glom Filt Rate - Afr Amer 45 mL/min (>60); Estimated Creatinine Clearance 27.29 ml/min; Globulin 3.6 g/dL (2.2-4.2); Glucose 85 mg/dL (74-106); Potassium 3.7 mmol/L (3.5-5.1); Protein, Total 6.2 g/dL (6.4-8.2); Sodium Level 139 mmol/L (136-145)
[2023-02-16 08:23] VITALS: BP 154/94; PULSE 87; RESP 18; TEMP 36.5; O2SAT 98
[2023-02-16] MEDS: Ondansetron 4 MG/2 ML Vial IV (08:28)
[2023-02-16] MEDS: 0.9% Saline Lock 10 ML Syringe IV (08:29)
[2023-02-16 09:23] VITALS: PULSE 87
[2023-02-16] MEDS: Metoprolol Tartrate 25 MG Tablet 12.5 MG PO (09:23)
[2023-02-16] MEDS: Ascorbic Acid 500 MG Tablet PO (09:24)
[2023-02-16] MEDS: Isosorbide DN 10 MG Tablet 5 MG PO (09:24)
[2023-02-16] MEDS: Pantoprazole Sodium 40 MG Tablet PO (09:24)
[2023-02-16] MEDS: Potassium Chloride Oral Tablet 10 MEQ PO (09:24)
[2023-02-16] MEDS: Creon 24,000 unit DR Capsule 3 CAP PO ×2 (09:24→12:37)
[2023-02-16] MEDS: Multivitamins,Therapeutic Tablet 1 TABLET PO (09:25)
[2023-02-16] MEDS: Amiodarone 200 MG Tablet 100 MG PO (09:25)
[2023-02-16] MEDS: Finasteride 5 MG Tablet PO (09:25)
[2023-02-16] MEDS: Lidocaine 5% Patch 1 PATCH TOPICAL (09:25)
[2023-02-16] MEDS: dilTIAZem CD 120 MG Capsule PO (09:26)
--- NOTE | 2023-02-16 11:14 | CASEMGMT ---
Social Work Pt states does have LW/POA, and that Neelima Durant is her healthcare POA. SW asked him to bring in the documents at a later date as able. Pt states understanding. JACQUES Pereira
--- NOTE | 2023-02-16 11:15 | PCM.DC ---
Discharge Instructions Diet Discharge Diet: Light diet - advance as tolerated Activity Discharge Activity: Return to Normal Activity Follow Up Care Test Results: Test results from this visit will be discussed in further detail at your follow-up appointment, if applicable. Discharge Plan Admission Admit Date/Time: 02/13/23 12:08 Primary Reason for Your Visit: Back pain Attending Provider: Emy Willard Primary Care Provider: César Chinchilla Consulting Providers: Drew Morton Instructions Patient Instructions: Diverticulitis Dc Additional Instructions / Restrictions: DISCHARGE INSTRUCTIONS PLEASE READ *Please take this with you to your next doctors appointment* -You will need a colonoscopy in 6 to 8 weeks on an outpatient basis, this can be coordinated through your primary care physician's office or through the office of the physician who previously did your colonoscopy -You will be discharged on Augmentin 875 mg twice daily for 9 more days with first dose tonight -An antibiotic, doxycycline, was on your home medication list, would advise not taking this while taking the Augmentin. -Please continue to monitor your INR with your prescribing physician, due to an elevated INR it is recommended that you have your INR checked in 2 to 3 days and also that you decrease your Coumadin to 4 mg Tuesday, Tuesday, Tuesday and 2 mg on Tuesday, Tuesday, , Tuesday with her first dose tomorrow 02/17. Your INR will need to be monitored closely. Please call your prescribing physician upon discharge to update them on changes and obtain further lab work orders -Would recommend lab work (BMP) to check your kidney function in 2 to 3 days through your primary care physician's office. Please call their office upon discharge to obtain order for lab work. -Due to your nausea your Lasix were held on admission, we recommend continuing a half dose for 2 days and then resuming your normal home dose as long as you are tolerating your diet. If you are having further nausea or difficulty with maintaining oral intake please discuss with your prescribing physician for any dose recommendations -Weigh yourself every day. A sudden weight gain can mean you are retaining fluid. Weigh yourself at the same time of day and in the same kind of clothes. Ideally, weigh yourself first thing in the morning after you empty your bladder, but before you eat breakfast. -Please call your physician if your weight goes up by more than 2 pounds in 1 day or 5 pounds in 1 week. This can be a sign that you are retaining more fluid than you should be. -You will be important for you to avoid constipation, please take MiraLAX 17 g twice daily, senna?docusate 2 tabs twice daily, and your Linzess. This can be further adjusted or escalated per your primary care physician -Please call your primary care provider's office upon discharge to schedule a hospital follow up within 1 week. -For any concerning signs or symptoms please call 911 or proceed to the nearest emergency department Discharge Orders/Prescriptions Prescriptions: New amoxicillin-pot clavulanate 875-125 mg tablet 1 tab PO BID 9 Days Qty: 19 0RF Continued tamsulosin 0.4 mg capsule 0.4 mg PO QHS levothyroxine 25 mcg tablet 50 mcg PO DAILY Label Comments: take 1 tablet by mouth once daily acetaminophen 500 mg capsule 1,000 mg PO Q6H PRN (Reason: Pain) Linzess 72 mcg capsule 72 mcg PO DAILY PRN (Reason: Diarrhea) ascorbic acid (vitamin C) 500 mg tablet 500 mg PO DAILY finasteride 5 mg tablet 5 mg PO DAILY Prolia 60 MG/ML syringe 60 mg SQ .[id number] pantoprazole 40 mg Tablet,Delayed Release (Dr/Ec) 40 mg PO DAILY vitamin B complex Capsule 1 cap PO BID coenzyme Q10 [Co Q-10] 100 mg Capsule 100 mg PO DAILY baclofen 5 mg Tablet 5 mg PO TID PRN (Reason: muscle spasms) multivitamin Tablet 1 tab PO DAILY loratadine 10 mg Capsule 10 mg PO DAILY ondansetron HCl 4 mg Tablet 4 mg PO Q8H PRN (Reason: Nausea And Vomiting) isosorbide dinitrate 10 mg tablet 5 mg PO BID Label Comments: take 1/2 tablet by mouth once daily lidocaine [Lidocaine Pain Relief] 4 % adhesive patch,medicated 1 patch TOPICAL Q12H metoprolol tartrate 25 mg tablet 12.5 mg PO BID Qty: 90 3RF amiodarone 100 mg tablet 100 mg PO BID Qty: 180 3RF potassium chloride 10 mEq tablet extended release 10 meq PO DAILY Qty: 60 11RF sucralfate [Carafate] 1 gram tablet 1 g PO QAC Qty: 90 0RF Rx Instructions: take two hours away from other medication. famotidine 40 mg tablet 40 mg PO DAILY Qty: 30 3RF diltiazem HCl 120 mg capsule,extended release 24hr 120 mg PO BID Qty: 60 11RF Creon 36,000-114,000- 180,000 unit capsule,delayed release(DR/EC) See Rx Instructions PO .COMPLEX Qty: 320 3RF Rx Instructions: take 1-2 with snacks and 2-3 with meals Changed warfarin 4 mg Tablet See Rx Instructions .ROUTE .COMPLEX Qty: 30 0RF Protocol: Dose Management Condition: Tuesday Dose/Route: 4 mg Instruction: 1 x 4 mg tablet Condition: Tuesday Dose/Route: 2 mg Instruction: 1 x 2 mg tablet Condition: Tuesday Dose/Route: 2 mg Instruction: 1 x 2 mg tablet Condition: Tuesday Dose/Route: 4 mg Instruction: 1 x 4 mg tablet Condition: Dose/Route: 4 mg Instruction: 1 x 4 mg tablet Condition: Tuesday Dose/Route: 4 mg Instruction: 1 x 4 mg tablet Condition: Tuesday Dose/Route: 4 mg Instruction: 1 x 4 mg tablet Protocol Text: Adjustment Start Date: 02/10/23 INR Value: 2.5 INR Date: 02/10/23 Recheck Date: 02/24/23 Rx Instructions: 4mg Tue, Tue, Tue. 2mg Tue, , , Tue warfarin 2 mg tablet See Rx Instructions .ROUTE .COMPLEX Qty: 30 0RF Protocol: Dose Management Condition: Tuesday Dose/Route: 4 mg Instruction: 1 x 4 mg tablet Condition: Tuesday Dose/Route: 2 mg Instruction: 1 x 2 mg tablet Condition: Tuesday Dose/Route: 2 mg Instruction: 1 x 2 mg tablet Condition: Tuesday Dose/Route: 4 mg Instruction: 1 x 4 mg tablet Condition: Dose/Route: 4 mg Instruction: 1 x 4 mg tablet Condition: Tuesday Dose/Route: 4 mg Instruction: 1 x 4 mg tablet Condition: Tuesday Dose/Route: 4 mg Instruction: 1 x 4 mg tablet Protocol Text: Adjustment Start Date: 02/10/23 INR Value: 2.5 INR Date: 02/10/23 Recheck Date: 02/24/23 Label Comments: Adjustment 01/03. Pt to take 2mg Wednesday 01/03, 2mg Thursday 01/04. Retest 01/05. Rx Instructions: 4mg Mon, Wed, Fri. 2mg Sun, , , Sat Held furosemide 40 mg tablet 40 mg PO BID Hold Instructions: Resume on 02/18/23. Rx Instructions: as needed for weight gain of 3# in one day Discontinued doxycycline hyclate 100 mg capsule 100 mg PO BID Qty: 60 1RF No Action oxycodone-acetaminophen [Percocet] 5-325 mg tablet 1 tab PO Q6H PRN (Reason: pain) 3 Days Qty: 12 0RF Referrals / Follow Up: Tremaine Molina MD [Med Staff - Active Staff] - See Referral Note (Please continue to follow-up with your processing technician upon discharge) César Chinchilla MD [Primary Care Provider] - Within 1 Week Disposition Disposition (needs filled in before D/C Order can be placed): Home, Self Care
--- NOTE | 2023-02-16 11:28 | PCM.DC.SUM ---
Providers Date of Admission: 02/13/23 Date of Discharge: 02/16/23 Primary Care Physician: Dr. César Chinchilla MD Reason For Visit: ACUTE ON CHRONIC BACK PAIN Diagnosis Discharge Diagnosis (1) Acute exacerbation of chronic low back pain: Status: Chronic Code(s): M54.50 - Low back pain, unspecified; G89.29 - Other chronic pain (2) Acute diverticulitis: Status: Acute Code(s): K57.92 - Diverticulitis of intestine, part unspecified, without perforation or abscess without bleeding Plan #Acute uncomplicated sigmoid diverticulitis #chronic back pain #Constipation #CKD IIIb #afib #CAD s/p stent 2014/Mod pulm HTN/Mod TR and mod MR #Hypothyroidism #Chronic macrocytic anemia: #Hx kidney stones #BPH #GERD #GERD with history of GI bleed Medications at Discharge Home Medications denosumab 60 mg/mL subcutaneous syringe (Prolia) 60 mg SQ .[id number] BONES 12/09/20 tamsulosin 0.4 mg capsule 0.4 mg PO QHS bladder 11/18/21 levothyroxine 25 mcg tablet 50 mcg PO DAILY 02/17/22 baclofen 5 mg tablet 5 mg PO TID PRN muscle spasms 05/01/22 coenzyme Q10 100 mg capsule (Co Q-10) 100 mg PO DAILY 05/01/22 pantoprazole 40 mg tablet,delayed release 40 mg PO DAILY 05/01/22 vitamin B complex 1 cap PO BID 05/01/22 metoprolol tartrate 25 mg tablet 12.5 mg PO BID #90 tabs 06/10/22 acetaminophen 500 mg capsule 1,000 mg PO Q6H PRN Pain 06/15/22 linaclotide 72 mcg capsule (Linzess) 72 mcg PO DAILY PRN Diarrhea 06/15/22 ascorbic acid (vitamin C) 500 mg tablet 500 mg PO DAILY 07/20/22 finasteride 5 mg tablet 5 mg PO DAILY 08/05/22 amiodarone 100 mg tablet 100 mg PO BID #180 tabs 08/09/22 loratadine 10 mg capsule 10 mg PO DAILY 08/16/22 multivitamin 1 tab PO DAILY 08/16/22 potassium chloride 10 mEq tablet,extended release 10 meq PO DAILY #60 tabs 10/14/22 sucralfate 1 gram tablet (Carafate) 1 g PO QAC #90 tabs 10/21/22 famotidine 40 mg tablet 40 mg PO DAILY #30 tabs 10/29/22 furosemide 40 mg tablet 40 mg PO BID 11/25/22 ondansetron HCl 4 mg tablet 4 mg PO Q8H PRN Nausea And Vomiting 11/26/22 diltiazem HCl 120 mg capsule,extended release 24 hr 120 mg PO BID heart #60 caps 11/30/22 oxycodone-acetaminophen 5 mg-325 mg tablet (Percocet) 1 tab PO Q6H PRN pain 3 days #12 tabs 01/05/23 [id number]-[id number] 36,000-114,000-180,000 unit capsule,delay rel (Creon) See Rx Instructions PO .COMPLEX #320 caps 01/06/23 isosorbide dinitrate 10 mg tablet 5 mg PO BID . 02/13/23 lidocaine 4 % topical patch (Lidocaine Pain Relief) 1 patch topical Q12H PAIN 02/13/23 amoxicillin 875 mg-potassium clavulanate 125 mg tablet 1 tab PO BID 9 days #19 tabs 02/16/23 warfarin 2 mg tablet See Rx Instructions .Route .COMPLEX blood thinner #30 tabs 02/16/23 warfarin 4 mg tablet See Rx Instructions .Route .COMPLEX #30 tabs 02/16/23 Hospital Course Summary of Care Provided Minutes Spent on Discharge: 35 Hospital Course: 82-year-old male with a history of hypertension, CKD, chronic heart failure preserved ejection fraction, atypical atrial flutter, coronary artery disease, chronic back pain presented to [facility] 02/13/2023 with back and abdominal pain. History of chronic back pain for about 10 years status post [address] Richardson, he had pain more in the right lower back/paraspinal muscles that was constant and also complained of abdominal pain mainly periumbilical and pelvic for about 5 days as well as some nausea and vomiting and had not had a bowel movement in [address] abdomen in the ED with wall thickening sigmoid colon with focal fat stranding consistent with acute sigmoid diverticulitis and fecal material and large bowel. Hospitalist consulted for admission and patient was admitted for acute uncomplicated sigmoid diverticulitis and started on Zosyn and had an aggressive bowel regimen ordered. Diet was slowly advanced as tolerated and he was having bowel movements with aggressive bowel regimen. On day of discharge had been tolerating advanced diet and had no new/acute complaints, patient agreeable to DC home on oral antibiotics. Discharge instructions as follows: -You will need a colonoscopy in 6 to 8 weeks on an outpatient basis, this can be coordinated through your primary care physician's office or through the office of the physician who previously did your colonoscopy -You will be discharged on Augmentin 875 mg twice daily for 9 more days with first dose tonight -An antibiotic, doxycycline, was on your home medication list, would advise not taking this while taking the Augmentin. -Please continue to monitor your INR with your prescribing physician, due to an elevated INR it is recommended that you have your INR checked in 2 to 3 days and also that you decrease your Coumadin to 4 mg Tuesday, Tuesday, Tuesday and 2 mg on Tuesday, Tuesday, , Tuesday with her first dose tomorrow 02/17.? Your INR will need to be monitored closely.? Please call your prescribing physician upon discharge to update them on changes and obtain further lab work orders -Would recommend lab work (BMP) to check your kidney function in 2 to 3 days through your primary care physician's office.? Please call their office upon discharge to obtain order for lab work. -Due to your nausea your Lasix were held on admission, we recommend continuing a half dose for 2 days and then resuming your normal home dose as long as you are tolerating your diet.? If you are having further nausea or difficulty with maintaining oral intake please discuss with your prescribing physician for any dose recommendations -Weigh yourself every day. A sudden weight gain can mean you are retaining fluid. Weigh yourself at the same time of day and in the same kind of clothes. Ideally, weigh yourself first thing in the morning after you empty your bladder, but before you eat breakfast. -Please call your physician if your weight goes up by more than 2 pounds in 1 day or 5 pounds in 1 week. This can be a sign that you are retaining more fluid than you should be. -You will be important for you to avoid constipation, please take MiraLAX 17 g twice daily, senna?docusate 2 tabs twice daily, and your Linzess.? This can be further adjusted or escalated per your primary care physician -Please call your primary care provider's office upon discharge to schedule a hospital follow up within 1 week. -For any concerning signs or symptoms please call 911 or proceed to the nearest emergency department Physical Exam Narrative General: Alert, oriented, no apparent distress HEENT: Atraumatic, normocephalic Eyes: Anicteric, normal conjunctiva, extraocular movements grossly intact Neck: Supple Respiratory: Clear to auscultation bilaterally, normal respiratory effort Cardiovascular: Regular rate and rhythm GI: Soft, nontender, guarding, rigidity, nondistended Extremities: No edema Musculoskeletal: Moving all extremities Neuro: No overt focal neurological deficits Skin: No rashes appreciated Psych: Cooperative Weight / BMI Weight Weight: 62.278 kg Body Mass Index (BMI) 20.8 ABG / Lab / Microbiology Data Result Diagrams: 02/16/23 05:50 02/16/23 05:50 Laboratory: Laboratory Results - last 24 hr 02/16/23 05:50: WBC 12.0 H, RBC 3.19 L, Hgb 11.5 L, Hct 34.3 L, MCV 107.5 H, MCH 36.1 H, MCHC 33.5, RDW Std Deviation 61.1 H, RDW Coeff of Pablo 15.3 H, Plt Count 271, MPV 10.0, Immature Gran % (Auto) 1.100 H, Neut % (Auto) 83.3 H, Lymph % (Auto) 4.9 L, [place] % (Auto) 7.8, Eos % (Auto) 2.5, Baso % (Auto) 0.4, Absolute Neuts (auto) 10.0 H, Absolute Lymphs (auto) 0.59 L, Nucleated RBC % 0, Differential Comment SCANNED 02/16/23 05:50: PT 43.6 H, INR 4.5 H* 02/16/23 05:50: Sodium 139, Potassium 3.7, Chloride 107, Carbon Dioxide 28.0, Anion Gap 4 L, BUN 24 H, Creatinine 1.87 H, Estim Creat Clear Calc 27.29, Est GFR (MDRD) Af Amer 45 L, Est GFR (MDRD) Non-Af 37 L, BUN/Creatinine Ratio 12.8, Glucose 85, Calcium 8.5, Total Bilirubin 0.80, AST 25, ALT 43, Alkaline Phosphatase 76, Total Protein 6.2 L, Albumin 2.6 L, Globulin 3.6, Albumin/Globulin Ratio 0.7 L D/C Instructions Discharge Diet: Light diet - advance as tolerated Meaningful Use Info Meaningful Use Diagnoses (Choose all that apply): None applicable Discharge Plan Admission Admit Date/Time: 02/13/23 12:08 Primary Reason for Your Visit: Back pain Attending Provider: Emy Willard Primary Care Provider: César Chinchilla Consulting Providers: Drew Morton Instructions Patient Instructions: Diverticulitis Dc Additional Instructions / Restrictions: DISCHARGE INSTRUCTIONS PLEASE READ *Please take this with you to your next doctors appointment* -You will need a colonoscopy in 6 to 8 weeks on an outpatient basis, this can be coordinated through your primary care physician's office or through the office of the physician who previously did your colonoscopy -You will be discharged on Augmentin 875 mg twice daily for 9 more days with first dose tonight -An antibiotic, doxycycline, was on your home medication list, would advise not taking this while taking the Augmentin. -Please continue to monitor your INR with your prescribing physician, due to an elevated INR it is recommended that you have your INR checked in 2 to 3 days and also that you decrease your Coumadin to 4 mg Tuesday, Tuesday, Tuesday and 2 mg on Tuesday, Tuesday, , Tuesday with her first dose tomorrow 02/17. Your INR will need to be monitored closely. Please call your prescribing physician upon discharge to update them on changes and obtain further lab work orders -Would recommend lab work (BMP) to check your kidney function in 2 to 3 days through your primary care physician's office. Please call their office upon discharge to obtain order for lab work. -Due to your nausea your Lasix were held on admission, we recommend continuing a half dose for 2 days and then resuming your normal home dose as long as you are tolerating your diet. If you are having further nausea or difficulty with maintaining oral intake please discuss with your prescribing physician for any dose recommendations -Weigh yourself every day. A sudden weight gain can mean you are retaining fluid. Weigh yourself at the same time of day and in the same kind of clothes. Ideally, weigh yourself first thing in the morning after you empty your bladder, but before you eat breakfast. -Please call your physician if your weight goes up by more than 2 pounds in 1 day or 5 pounds in 1 week. This can be a sign that you are retaining more fluid than you should be. -You will be important for you to avoid constipation, please take MiraLAX 17 g twice daily, senna?docusate 2 tabs twice daily, and your Linzess. This can be further adjusted or escalated per your primary care physician -Please call your primary care provider's office upon discharge to schedule a hospital follow up within 1 week. -For any concerning signs or symptoms please call 911 or proceed to the nearest emergency department Discharge Orders/Prescriptions Prescriptions: New amoxicillin-pot clavulanate 875-125 mg tablet 1 tab PO BID 9 Days Qty: 19 0RF Continued tamsulosin 0.4 mg capsule 0.4 mg PO QHS levothyroxine 25 mcg tablet 50 mcg PO DAILY Label Comments: take 1 tablet by mouth once daily acetaminophen 500 mg capsule 1,000 mg PO Q6H PRN (Reason: Pain) Linzess 72 mcg capsule 72 mcg PO DAILY PRN (Reason: Diarrhea) ascorbic acid (vitamin C) 500 mg tablet 500 mg PO DAILY finasteride 5 mg tablet 5 mg PO DAILY Prolia 60 MG/ML syringe 60 mg SQ .[id number] pantoprazole 40 mg Tablet,Delayed Release (Dr/Ec) 40 mg PO DAILY vitamin B complex Capsule 1 cap PO BID coenzyme Q10 [Co Q-10] 100 mg Capsule 100 mg PO DAILY baclofen 5 mg Tablet 5 mg PO TID PRN (Reason: muscle spasms) multivitamin Tablet 1 tab PO DAILY loratadine 10 mg Capsule 10 mg PO DAILY ondansetron HCl 4 mg Tablet 4 mg PO Q8H PRN (Reason: Nausea And Vomiting) isosorbide dinitrate 10 mg tablet 5 mg PO BID Label Comments: take 1/2 tablet by mouth once daily lidocaine [Lidocaine Pain Relief] 4 % adhesive patch,medicated 1 patch TOPICAL Q12H metoprolol tartrate 25 mg tablet 12.5 mg PO BID Qty: 90 3RF amiodarone 100 mg tablet 100 mg PO BID Qty: 180 3RF potassium chloride 10 mEq tablet extended release 10 meq PO DAILY Qty: 60 11RF sucralfate [Carafate] 1 gram tablet 1 g PO QAC Qty: 90 0RF Rx Instructions: take two hours away from other medication. famotidine 40 mg tablet 40 mg PO DAILY Qty: 30 3RF diltiazem HCl 120 mg capsule,extended release 24hr 120 mg PO BID Qty: 60 11RF Creon 36,000-114,000- 180,000 unit capsule,delayed release(DR/EC) See Rx Instructions PO .COMPLEX Qty: 320 3RF Rx Instructions: take 1-2 with snacks and 2-3 with meals Changed warfarin 4 mg Tablet See Rx Instructions .ROUTE .COMPLEX Qty: 30 0RF Protocol: Dose Management Condition: Tuesday Dose/Route: 2 mg Instruction: 1 x 2 mg tablet Condition: Tuesday Dose/Route: 2 mg Instruction: 1 x 2 mg tablet Condition: Tuesday Dose/Route: 2 mg Instruction: 1 x 2 mg tablet Condition: Tuesday Dose/Route: 0 mg Instruction: 0 tablets Condition: Dose/Route: 2 mg Instruction: 1 x 2 mg tablet Condition: Tuesday Dose/Route: 4 mg Instruction: 1 x 4 mg tablet Condition: Tuesday Dose/Route: 2 mg Instruction: 1 x 2 mg tablet Protocol Text: Adjustment Start Date: Tuesday02/16/23 INR Value: 4.5 INR Date: 02/16/23 Recheck Date: 02/21/23 Rx Instructions: 4mg Tue, Tue, Tue. 2mg Tue, , , Sat warfarin 2 mg tablet See Rx Instructions .ROUTE .COMPLEX Qty: 30 0RF Protocol: Dose Management Condition: Tuesday Dose/Route: 2 mg Instruction: 1 x 2 mg tablet Condition: Tuesday Dose/Route: 2 mg Instruction: 1 x 2 mg tablet Condition: Tuesday Dose/Route: 2 mg Instruction: 1 x 2 mg tablet Condition: Tuesday Dose/Route: 0 mg Instruction: 0 tablets Condition: Dose/Route: 2 mg Instruction: 1 x 2 mg tablet Condition: Tuesday Dose/Route: 4 mg Instruction: 1 x 4 mg tablet Condition: Tuesday Dose/Route: 2 mg Instruction: 1 x 2 mg tablet Protocol Text: Adjustment Start Date: Tuesday02/16/23 INR Value: 4.5 INR Date: 02/16/23 Recheck Date: 02/21/23 Label Comments: Adjustment 01/03. Pt to take 2mg Wednesday 01/03, 2mg Thursday 01/04. Retest 01/05. Rx Instructions: 4mg Tue, Tue, Tue. 2mg Sun, , , Sat Held furosemide 40 mg tablet 40 mg PO BID Hold Instructions: Resume on 02/18/23. Rx Instructions: as needed for weight gain of 3# in one day Discontinued doxycycline hyclate 100 mg capsule 100 mg PO BID Qty: 60 1RF No Action oxycodone-acetaminophen [Percocet] 5-325 mg tablet 1 tab PO Q6H PRN (Reason: pain) 3 Days Qty: 12 0RF Referrals / Follow Up: Tremaine Molina MD [Med Staff - Active Staff] - See Referral Note (Please continue to follow-up with your golf tournament consultant upon discharge) César Chinchilla MD [Primary Care Provider] - 02/24/23 9:50 am Disposition Disposition (needs filled in before D/C Order can be placed): Home, Self Care Charges/Coding Visit Charges Inpatient E&M: 36959 Disch Hosp >30min
[2023-02-16 11:45] VITALS: O2SAT 98
--- NOTE | 2023-02-16 12:03 | PHA.DC.MC ---
Pharmacy Service has performed discharge medication reconciliation and counseling for this patient. INR is elevated at 4.5, patient has already contacted overseeing provider's office to see when his INR should be rechecked. Instructed patient to not take any doses today based on hospitalist note. 1. AUGMENTIN 875 1T PO BID X 9 DAYS The patient's discharge medication list was reviewed for discrepancies and discrepancies were resolved. Home Medications denosumab 60 mg/mL subcutaneous syringe (Prolia) 60 mg SQ .[id number] BONES 12/09/20 tamsulosin 0.4 mg capsule 0.4 mg PO QHS bladder 11/18/21 levothyroxine 25 mcg tablet 50 mcg PO DAILY 02/17/22 baclofen 5 mg tablet 5 mg PO TID PRN muscle spasms 05/01/22 coenzyme Q10 100 mg capsule (Co Q-10) 100 mg PO DAILY 05/01/22 pantoprazole 40 mg tablet,delayed release 40 mg PO DAILY 05/01/22 vitamin B complex 1 cap PO BID 05/01/22 metoprolol tartrate 25 mg tablet 12.5 mg PO BID #90 tabs 06/10/22 acetaminophen 500 mg capsule 1,000 mg PO Q6H PRN Pain 06/15/22 linaclotide 72 mcg capsule (Linzess) 72 mcg PO DAILY PRN Diarrhea 06/15/22 ascorbic acid (vitamin C) 500 mg tablet 500 mg PO DAILY 07/20/22 finasteride 5 mg tablet 5 mg PO DAILY 08/05/22 amiodarone 100 mg tablet 100 mg PO BID #180 tabs 08/09/22 loratadine 10 mg capsule 10 mg PO DAILY 08/16/22 multivitamin 1 tab PO DAILY 08/16/22 potassium chloride 10 mEq tablet,extended release 10 meq PO DAILY #60 tabs 10/14/22 sucralfate 1 gram tablet (Carafate) 1 g PO QAC #90 tabs 10/21/22 famotidine 40 mg tablet 40 mg PO DAILY #30 tabs 10/29/22 furosemide 40 mg tablet 40 mg PO BID 11/25/22 ondansetron HCl 4 mg tablet 4 mg PO Q8H PRN Nausea And Vomiting 11/26/22 diltiazem HCl 120 mg capsule,extended release 24 hr 120 mg PO BID heart #60 caps 11/30/22 oxycodone-acetaminophen 5 mg-325 mg tablet (Percocet) 1 tab PO Q6H PRN pain 3 days #12 tabs 01/05/23 [id number] 36,000-114,000-180,000 unit capsule,delay rel (Creon) See Rx Instructions PO .COMPLEX #320 caps 01/06/23 isosorbide dinitrate 10 mg tablet 5 mg PO BID . 02/13/23 lidocaine 4 % topical patch (Lidocaine Pain Relief) 1 patch topical Q12H PAIN 02/13/23 amoxicillin 875 mg-potassium clavulanate 125 mg tablet 1 tab PO BID 9 days #19 tabs 02/16/23 warfarin 2 mg tablet See Rx Instructions .Route .COMPLEX blood thinner #30 tabs 02/16/23 warfarin 4 mg tablet See Rx Instructions .Route .COMPLEX #30 tabs 02/16/23 The patient was counseled on the following discharge medications and changes in medications for homegoing were reviewed. The Reason for Use, instructions for use, and potential side effects were reviewed for all new medications. The patient's questions regarding all of their medications were answered. The patient was able to verbally demonstrate an understanding of their discharge medications.
--- NOTE | 2023-02-16 12:15 | CASEMGMT ---
RN CM into pt room, pt aware that CCN is aware he will be coming home. Message to Earl. Pt denies any further homegoing needs and denies need for palliative care. Explained palliative care services again per pt request, he denies need for this.
[2023-02-16 13:33] VITALS: BP 126/76; PULSE 76; RESP 18; TEMP 36.4; O2SAT 98
== END 2023-02-16 13:43 | disposition home or self-care (01) | DRG 392 ==
LOC: ED 11:56 → MS3 13:19
PROVIDERS: Admitting Provider Internal Medicine; Emergency Provider Emergency Medicine; PCP Family Medicine; Visit Provider Internal Medicine
DX: K57.32 Diverticulitis of large intestine without perforation or abscess without bleeding (principal); I13.0 Hypertensive heart and chronic kidney disease with heart failure and stage 1 through stage 4 chronic kidney disease, or unspecified chronic kidney disease; I50.32 Chronic diastolic (congestive) heart failure; I48.92 Unspecified atrial flutter; N18.32 Chronic kidney disease, stage 3b; I48.91 Unspecified atrial fibrillation; I25.10 Atherosclerotic heart disease of native coronary artery without angina pectoris; E78.00 Pure hypercholesterolemia, unspecified; E78.5 Hyperlipidemia, unspecified; D53.9 Nutritional anemia, unspecified; K44.9 Diaphragmatic hernia without obstruction or gangrene; K21.9 Gastro-esophageal reflux disease without esophagitis; E03.9 Hypothyroidism, unspecified; K59.00 Constipation, unspecified; Z79.01 Long term (current) use of anticoagulants; Z95.5 Presence of coronary angioplasty implant and graft; G89.29 Other chronic pain; M54.50 Low back pain, unspecified; Z87.442 Personal history of urinary calculi; N40.0 Benign prostatic hyperplasia without lower urinary tract symptoms
CPT/HCPCS: 36415; 74176; 80048; 80053; 81001; 85025; 85610; 93005; 94668; 97116; 97162; 99285; J7050; A4216; J2405

== ENCOUNTER 2023-02-19 19:49 | Observation (INO) | payer MEDICARE, OTHER, SELFPAY ==
[2023-02-19 19:51] VITALS: BP 154/93; PULSE 94; RESP 18; TEMP 36.4; O2SAT 93; BMI 22.1
--- NOTE | 2023-02-19 20:12 | EDS_ITS ---
HPI HPI - GI History of Present Illness Chief Complaint: Nausea/Vomiting Informant: patient and EMS Nausea/Vomiting/Emesis GI Symptom: Positive for Nausea and Vomiting Onset: Today Quality: Positive for Nonbilious; Negative for Blood streaks, Coffee ground or Hematemesis Episodes: 3 Diarrhea/Melena/Hematochezia GI Symptom: Negative for Diarrhea, Melena or Hematochezia Narrative Narrative: Patient recently here and diagnosed with diverticulitis and admitted, he was on IV antibiotics for couple days and transition to orals, I followed up with his doctor, he switched him to Flagyl couple days ago, he is not sure why, and he also upgraded his pain medication from oxycodone to hydromorphone because he was still having abdominal pain in addition to his chronic back pain. He states he took a couple of those today which really helped, but he started vomiting today and had nothing for that and feels poorly to return to the ER. No fevers or chills. No other new symptoms. Patient states that his low back pain has been worse in the past 2 weeks since he had an injection, and he is not able to get around at home. He lives alone. He has no help. [facility] Medical History Acute constipation Acute diverticulitis of intestine Acute exacerbation of chronic low back pain Acute gastrointestinal bleeding Acute kidney injury superimposed on chronic kidney disease Ambulates with cane Anemia Arthritis Atherosclerotic heart disease of [place] coronary artery without angina pectoris Atrial fibrillation Atypical atrial flutter (12/2020) Back pain Benign prostatic hyperplasia BPH (benign prostatic hyperplasia) Cancer Cardiology follow-up encounter Chronic anemia Chronic heart failure with preserved ejection fraction (HFpEF) Chronic kidney disease Chronic renal insufficiency Colitis CPAP (continuous positive airway pressure) dependence Debility Diarrhea Difficulty chewing Dysphagia Easy bruising Elevated LFTs Elevated liver enzymes Essential (primary) hypertension Excessive bleeding Gastric reflux GI bleed (2012) High cholesterol History of atrial fibrillation History of colon polyps History of diverticulitis History of echocardiogram History of edema History of heart attack History of hyperthyroidism History of leukemia History of pain when walking History of renal disease History of stress test HLD (hyperlipidemia) Hypertension Kidney disease Kidney stones Myocardial infarct Nausea and vomiting Non-rheumatic tricuspid valve insufficiency Non-smoker Nonrheumatic mitral (valve) insufficiency 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 Osteoarthritis Paroxysmal atrial fibrillation Secondary pulmonary arterial hypertension Sleep apnea Sleep apnea Stage 3b chronic kidney disease Thoracic aortic aneurysm (TAA) Thyroid disease Wears glasses Home Medications denosumab 60 mg/mL subcutaneous syringe (Prolia) 60 mg SQ .[id number] BONES 12/09/20 [History Last Taken 11/10/22] tamsulosin 0.4 mg capsule 0.4 mg PO QHS bladder 11/18/21 [History Last Taken 02/12/23] levothyroxine 25 mcg tablet 50 mcg PO DAILY 02/17/22 [History Last Taken 02/12/23] baclofen 5 mg tablet 5 mg PO TID PRN muscle spasms 05/01/22 [History Last Taken Unknown] coenzyme Q10 100 mg capsule (Co Q-10) 100 mg PO DAILY 05/01/22 [History Last Taken 02/12/23] pantoprazole 40 mg tablet,delayed release 40 mg PO DAILY 05/01/22 [History Last Taken 02/12/23] vitamin B complex 1 cap PO BID 05/01/22 [History Last Taken 02/12/23] metoprolol tartrate 25 mg tablet 12.5 mg PO BID #90 tabs 06/10/22 [Rx Last Taken 02/12/23] acetaminophen 500 mg capsule 1,000 mg PO Q6H PRN Pain 06/15/22 [History Last Taken Unknown] linaclotide 72 mcg capsule (Linzess) 72 mcg PO DAILY PRN Diarrhea 06/15/22 [History Last Taken Unknown] ascorbic acid (vitamin C) 500 mg tablet 500 mg PO DAILY 07/20/22 [History Last Taken 02/12/23] finasteride 5 mg tablet 5 mg PO DAILY 08/05/22 [History Last Taken 02/12/23] amiodarone 100 mg tablet 100 mg PO BID #180 tabs 08/09/22 [Rx Last Taken 02/12/23] loratadine 10 mg capsule 10 mg PO DAILY 08/16/22 [History Last Taken 02/12/23] multivitamin 1 tab PO DAILY 08/16/22 [History Last Taken 02/12/23] potassium chloride 10 mEq tablet,extended release 10 meq PO DAILY #60 tabs 10/14/22 [Rx Last Taken 02/12/23] sucralfate 1 gram tablet (Carafate) 1 g PO QAC #90 tabs 10/21/22 [Rx Last Taken 02/12/23] famotidine 40 mg tablet 40 mg PO DAILY #30 tabs 10/29/22 [Rx Last Taken 02/12/23] furosemide 40 mg tablet 20 - 60 mg PO DAILY PRN diuretic 11/25/22 [History Last Taken Unknown] ondansetron HCl 4 mg tablet 4 mg PO Q8H PRN Nausea And Vomiting 11/26/22 [History Last Taken Unknown] diltiazem HCl 120 mg capsule,extended release 24 hr 120 mg PO BID heart #60 caps 11/30/22 [Rx Last Taken 02/12/23] [id number] 36,000-114,000-180,000 unit capsule,delay rel (Creon) See Rx Instructions PO .COMPLEX #320 caps 01/06/23 [Rx Last Taken 02/12/23] isosorbide dinitrate 10 mg tablet 5 mg PO BID . 02/13/23 [History Last Taken 02/12/23] lidocaine 4 % topical patch (Lidocaine Pain Relief) 1 patch topical Q12H PAIN 02/13/23 [History Last Taken 02/12/23] amoxicillin 875 mg-potassium clavulanate 125 mg tablet 1 tab PO BID 9 days #19 tabs 02/16/23 [Rx Last Taken Unknown] warfarin 2 mg tablet See Rx Instructions .Route .COMPLEX blood thinner #30 tabs 02/16/23 [Rx Last Taken 02/12/23] warfarin 4 mg tablet See Rx Instructions .Route .COMPLEX #30 tabs 02/16/23 [Rx Last Taken 02/11/23] hydromorphone 2 mg tablet 1 - 2 mg PO Q6H PRN Pain 02/19/23 [History Last Taken Unknown] metoclopramide HCl 5 mg tablet 2.5 - 5 mg PO Q6H PRN Pain 02/19/23 [History Last Taken Unknown] Allergy/AdvReac Type Severity Reaction Status Date / Time diclofenac Allergy rash Verified 02/19/23 19:50 prednisone Allergy Rash Verified 02/19/23 19:50 Family History Father Cancer Prostate cancer Mother Hypertension Sister Hypertension Surgical History History of back surgery History of back surgery History of cardiac catheterization History of cardioversion (10/21/19) History of coronary artery stent placement (08/04/00) History of electrophysiologic study (08/08/00) History of esophagogastroduodenoscopy (EGD) History of hemorrhoidectomy History of hernia repair History of left heart catheterization (07/17/12) History of Zenaida fundoplication History of radiofrequency ablation procedure for cardiac arrhythmia (11/11/11) Social History household members: none Smoking Status: Never smoker alcohol intake: never substance use type: does not use caffeine: No ROS ROS ED Constitutional Constitutional ED: Denies chills or fever(s) Eyes Eyes: Denies change in vision or diplopia ENT ENT ED: Denies rhinorrhea or sore throat Cardiovascular Cardiovascular: Denies chest pain or palpitations Respiratory/Chest Respiratory/Chest: Denies cough or dyspnea Gastrointestinal Gastrointestinal: Reports abdominal pain, nausea and vomiting; Denies diarrhea, hematemesis or hematochezia Genitourinary Genitourinary ED: Denies dysuria or hematuria Musculoskeletal Musculoskeletal: Reports back pain; Denies neck pain Integumentary Denies abscess or rash Neurologic Neurologic: Denies headache(s), paresthesias or weakness Psychiatric Psychiatric: Denies anxiety or suicidal thoughts EXAM Physical Exam Const Vital Signs: 02/19/23 19:51 Temperature 97.5 F L Temperature Source Temporal Pulse Rate 94 Respiratory Rate 18 Blood Pressure 154/93 H Blood Pressure Mean 113 Pulse Ox 93 Oxygen Delivery Method Room Air Positive well nourished and well developed General Appearance ED: well developed and NAD HEENT Reports moist mucous membranes normocephalic and atraumatic Eyes PERRL and EOMs intact bilaterally Neck full ROM and supple Resp normal respiratory effort and clear to auscultation bilaterally Cardio regular rate, regular rhythm and no murmurs GI non-distended GI Narrative: Very benign abdomen with very mild tenderness in the left mid-lower abdomen without guarding or rebound or pulsatile mass. No other areas of tenderness. Auscultation: normoactive bowel sounds Palpation: soft Back/Spine no CVA tenderness Back/Spine Narrative: Fusilli tender, well-healed midline scar otherwise benign exam General Back: other FROM with pain and somewhat limited with regards to low back Extremity normal to inspection General Extremety ED: Negative for edema, pulses abnormal or tenderness General Extremity: Negative for edema or pulses abnormal Neuro oriented x3, CN's II-XII intact bilaterally and no sensory deficits noted Sensorium / Orientation: awake and alert Motor Exam: strength 5/5 throughout Psych mental status grossly normal Skin no rashes or lesions noted and no wounds MDM MDM MDM Narrative Medical decision making narrative: Patient has a very benign abdomen so initially I obtained labs, we gave him some fluids and nausea medicine which helped and had no further vomiting while in the emergency department. Given that his white blood count is elevated at 14.1 similar to several days ago when he was diagnosed with diverticulitis, and a predominance of neutrophils I thought it wylie to repeat his CT scan. I reviewed the images and the result which I agree with, basically showing significant improvement and/or resolution of his diverticulitis. On reexamination, the patient is asking for more analgesics for his back pain which she agrees is chronic, however in further discussion he states he is unable to function at home, it takes him 5 hours to move, even today after taking several doses of oral hydromorphone, and when asked if he wants to be transition from home to a senior living, he states yes, and he believes he does not have a choice to do otherwise. I asked him if he was interested in home health or an aide, he states he would be but it is Tuesday night in he cannot function with regards to ADLs and does not believe he would be able to make it until Tuesday safely. Therefore I will discuss with hospitalist for inpatient observation for PT and OT evaluation and possible placement. History & Record Review Additional record(s) reviewed:: Prior inpatient record (PT evaluation; patient states he has less functionality now than he did when he was here in the hospital. OT eval: not performed, but encounter charted as deferred to PT.) and Prior ED visit Lab Data Attestation: I reviewed the patient's lab results. Labs: Laboratory Results - last 24 hr 02/19/23 02/19/23 20:00 20:00 WBC 14.1 H RBC 3.26 L Hgb 12.1 L Hct 35.8 L MCV 109.8 H MCH 37.1 H MCHC 33.8 RDW Std Deviation 64.7 H RDW Coeff of Pablo 15.9 H Plt Count 388 MPV 10.9 Immature Gran % (Auto) 1.300 H Neut % (Auto) 84.7 H Lymph % (Auto) 4.2 L [place] % (Auto) 8.4 Eos % (Auto) 1.0 Baso % (Auto) 0.4 Absolute Neuts (auto) 12.0 H Absolute Lymphs (auto) 0.59 L Nucleated RBC % 0 Differential Comment Sodium 139 Potassium 3.9 Chloride 106 Carbon Dioxide 25.0 Anion Gap 8 BUN 29 H Creatinine 1.83 H Estim Creat Clear Calc 29.49 Est GFR (MDRD) Af Amer 46 L Est GFR (MDRD) Non-Af 38 L BUN/Creatinine Ratio 15.8 Glucose 123 H Calcium 9.2 Radiography Diagnostic Testing: Clinical Impression(s) from Imaging Studies Abdomen/Pelvis CT 02/19/23 21:12 IMPRESSION: Decreased pericolonic inflammatory changes from diverticulitis seen on comparison exam February 13, 2023. No current evidence of diverticulitis. Numerous large diverticula are seen throughout the entire colon. Electronically Signed: Indio Harris DO at 21:56 EDT , ADDENDUM: 02/19/23 2999 IMPRESSION: undefined Management Discussion w/another healthcare provider: Hospitalist Discharge Plan Dx/Rx/DC Orders Clinical Impression: Acute exacerbation of chronic low back pain, Debility, Declining functional status, Nausea & vomiting Disposition Disposition: [facility]
[2023-02-19 20:20] LABS: Absolute Lymphocyte Count 0.59 X10^3/uL (0.83-4.51); Basophil# 0.06 X10^3/uL; Basophil% 0.4 % (0-1); Eosinophil# 0.14 X10^3/uL; Hematocrit 35.8 % (40-54); Hemoglobin 12.1 g/dL (13.0-16.5); Lymphocyte # 0.59 X10^3/ul (0.83-4.51); Lymphocyte % 4.2 % (19-41); Mean Corp Hgb Conc 33.8 g/dL (32-36); Mean Corpuscular Hgb 37.1 pg (27.0-32.0); Mean Corpuscular Volume 109.8 fL (80-94); Mean Platelet Vol. 10.9 fl (6.2-12.0); Monocyte# 1.19 X10^3/uL; Monocyte% 8.4 % (0-10); NRBC Flagged by Analyzer 0 % (0-5); Neutrophil # 11.97 X10^3/uL (2.7-7.7); Neutrophil % 84.7 % (47-70); POSITIVE DIFFERENTIAL YES; Platelet Count 388 K/mm3 (150-450); RBC Distribution Width CV 15.9 % (11.6-14.6); RBC Distribution Width SD 64.7 fl (35.1-43.9); Red Blood Count 3.26 M/mm3 (4.6-6.2); White Blood Count 14.1 K/mm3 (4.4-11.0)
[2023-02-19] MEDS: Ondansetron 4 MG/2 ML Vial IV (20:21)
[2023-02-19 20:25] LABS: Differential Indicated SCAN CRITERIA MET
[2023-02-19 20:33] LABS: Anion Gap 8 (5-15); BUN 29 mg/dL (7-18); BUN/Creat Ratio 15.8 RATIO (10-20); Calcium,Total 9.2 mg/dL (8.5-10.1); Chloride 106 mmol/L (98-107); Creatinine, Serum 1.83 mg/dL (0.70-1.30); EST Glomerular Filtration Rate 38 mL/min (>60); Est Glom Filt Rate - Afr Amer 46 mL/min (>60); Estimated Creatinine Clearance 29.49 ml/min; Glucose 123 mg/dL (74-106); Potassium 3.9 mmol/L (3.5-5.1); Sodium Level 139 mmol/L (136-145)
--- NOTE | 2023-02-19 21:12 | CT_ITS ---
INDICATION: abd pain, n/v, reeval recent dx diverticulitis EXAMINATION: CT ABDOMEN AND PELVIS WITHOUT CONTRAST - CT Abdomen And Pelvis W/O Contrast Injection TECHNIQUE: Helically acquired images were obtained of the abdomen and pelvis without oral or IV contrast. A radiation dose optimization technique was used for this scan. IV Contrast dosage and agent: None. Oral contrast: None. COMPARISON: February 13, 2023 CT abdomen and pelvis. Also compared to May 04, 2022 CT abdomen and pelvis. FINDINGS: LOWER CHEST: Bibasilar dependent groundglass opacities and mild reticulations likely representing atelectasis, unchanged from the prior exam. Less likely interstitial lung disease can could have a similar appearance. Questionable centrilobular emphysematous changes. Calcified granuloma left lower lobe. Significant cardiomegaly. No pericardial effusion. Tortuous distal thoracic aorta. Coronary artery calcifications and/or stents. There is incompletely visualized gynecomastia. LIVER: 76 Hounsfield units of the liver; increased density. 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 Further evaluation with serum ferritin levels is recommended. 8 mm hypodensity in segment 8 of the liver unchanged. This lesion is too small to confidently characterize but likely represents a simple cyst. A few splenic and hepatic calcifications likely representing prior granulomatous infection. GALLBLADDER AND BILIARY TREE: No calcified gallstones. No gallbladder distension or wall edema. No intra- or extrahepatic biliary ductal dilation. PANCREAS: No focal cystic or solid mass. Mild fatty replacement. SPLEEN: Normal size without focal cystic or solid mass. Posterior hilar splenule noted. ADRENAL GLANDS: No nodules. KIDNEYS, URETERS and BLADDER: Mild cortical thinning. Several homogenous fluid densities greater than 1.5 cm right and left kidneys unchanged and highly suggestive of simple cysts. Right lower pole hypodensity, 22 Hounsfield units is indeterminate. Other similar size or smaller hypodensities mid and lower pole left kidney are unchanged. Punctate nonobstructing stone inferior pole right kidney unchanged. No hydronephrosis. Bladder is unremarkable. PERITONEUM: No ascites or free air. No other fluid collection. Nodular stranding density adjacent to the left inguinal Ring, peritoneal cavity is unchanged dating back to at least May 04, 2022. BOWEL: Normal appendix identified. Diverticuli seen throughout the colon. There is interval decrease in the mild inflammatory changes seen around the sigmoid colon on the prior recent exam. Dense stool and mild distention of the cecum and proximal ascending colon. Much of the transverse colon and descending colon is collapsed with no evidence of significant stool load distal colon. No abnormally distended small bowel loops to suggest obstruction. LYMPH NODES: No enlarged mesenteric or retroperitoneal lymph nodes. VESSELS: Aorta is non-dilated. REPRODUCTIVE ORGANS: Multiple metallic clips in the prostate gland. ABDOMINAL WALL: No discrete abdominal or pelvic wall hernia. BONES: No lytic or blastic abnormality. T10, T12 and L1 kyphoplasty. T11 wedge compression fracture without hypoplasty. Abnormal lateral curvature lumbar spine, convex right, centered at L4. Subjective appearance of decreased bone mineral density. No new fracture. CT/Abdomen/Pelvis without Cont IMPRESSION: Decreased pericolonic inflammatory changes from diverticulitis seen on comparison exam February 13, 2023. No current evidence of diverticulitis. Numerous large diverticula are seen throughout the entire colon. Electronically Signed: Indio Harris DO at 21:56 EDT ,
--- NOTE | 2023-02-19 22:56 | PCM.HP.STD ---
HPI - General General Date of Admission: 02/19/23 Date of Service: 02/19/23 Chief Complaint: Back pain HPI Narrative RICHIE HANSEN, is a 82 M with a significant history of chronic pancreatitis; hypertension; hypothyroidism; BPH; and atrial fibrillation who presents emergency department with excruciating right flank pain that radiates across his entire back. Of note patient's chronic back pain worsened about 2 weeks ago[address] He saw Dr. Richardson at pain management about 2 weeks ago and received a shot at his back. Also recently patient's pain medication, Dilaudid, was escalated by his PCP. However patient continued to have pain. Patient's pain is constant with some intermittent checks. Pain intensity is about 7-8 on a scale of 1-10. The patient pain worsens with lying on his back and rolling. His pain improves with lying on his side. Patient bowels move a day before presentation but on the day of presentation at the time of history taking (close to midnight) patient bowels had not moved.. And day of presentation he had not fully taken his bowel regimen. Patient reports nausea and vomiting. Reported because of pain patient he is unable to care of himself. Of note patient was admitted to the hospital on 13 February 2023 and discharged on 16 February 2023 for diverticulitis. [facility] Medical History Acute constipation Acute diverticulitis of intestine Acute exacerbation of chronic low back pain Acute gastrointestinal bleeding Acute kidney injury superimposed on chronic kidney disease Ambulates with cane Anemia Arthritis Atherosclerotic heart disease of [place] coronary artery without angina pectoris Atrial fibrillation Atypical atrial flutter (12/2020) Back pain Benign prostatic hyperplasia BPH (benign prostatic hyperplasia) Cancer Cardiology follow-up encounter Chronic anemia Chronic heart failure with preserved ejection fraction (HFpEF) Chronic kidney disease Chronic renal insufficiency Colitis CPAP (continuous positive airway pressure) dependence Debility Diarrhea Difficulty chewing Dysphagia Easy bruising Elevated LFTs Elevated liver enzymes Essential (primary) hypertension Excessive bleeding Gastric reflux GI bleed (2012) High cholesterol History of atrial fibrillation History of colon polyps History of diverticulitis History of echocardiogram History of edema History of heart attack History of hyperthyroidism History of leukemia History of pain when walking History of renal disease History of stress test HLD (hyperlipidemia) Hypertension Kidney disease Kidney stones Myocardial infarct Nausea and vomiting Non-rheumatic tricuspid valve insufficiency Non-smoker Nonrheumatic mitral (valve) insufficiency 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 Osteoarthritis Paroxysmal atrial fibrillation Secondary pulmonary arterial hypertension Sleep apnea Sleep apnea Stage 3b chronic kidney disease Thoracic aortic aneurysm (TAA) Thyroid disease Wears glasses Home Medications denosumab 60 mg/mL subcutaneous syringe (Prolia) 60 mg SQ .[id number] BONES 12/09/20 [History Last Taken 11/10/22] tamsulosin 0.4 mg capsule 0.4 mg PO QHS bladder 11/18/21 [History Last Taken 02/12/23] levothyroxine 25 mcg tablet 50 mcg PO DAILY 02/17/22 [History Last Taken 02/12/23] baclofen 5 mg tablet 5 mg PO TID PRN muscle spasms 05/01/22 [History Last Taken Unknown] coenzyme Q10 100 mg capsule (Co Q-10) 100 mg PO DAILY 05/01/22 [History Last Taken 02/12/23] pantoprazole 40 mg tablet,delayed release 40 mg PO DAILY 05/01/22 [History Last Taken 02/12/23] vitamin B complex 1 cap PO BID 05/01/22 [History Last Taken 02/12/23] metoprolol tartrate 25 mg tablet 12.5 mg PO BID #90 tabs 06/10/22 [Rx Last Taken 02/12/23] acetaminophen 500 mg capsule 1,000 mg PO Q6H PRN Pain 06/15/22 [History Last Taken Unknown] linaclotide 72 mcg capsule (Linzess) 72 mcg PO DAILY PRN Diarrhea 06/15/22 [History Last Taken Unknown] ascorbic acid (vitamin C) 500 mg tablet 500 mg PO DAILY 07/20/22 [History Last Taken 02/12/23] finasteride 5 mg tablet 5 mg PO DAILY 08/05/22 [History Last Taken 02/12/23] amiodarone 100 mg tablet 100 mg PO BID #180 tabs 08/09/22 [Rx Last Taken 02/12/23] loratadine 10 mg capsule 10 mg PO DAILY 08/16/22 [History Last Taken 02/12/23] multivitamin 1 tab PO DAILY 08/16/22 [History Last Taken 02/12/23] potassium chloride 10 mEq tablet,extended release 10 meq PO DAILY #60 tabs 10/14/22 [Rx Last Taken 02/12/23] sucralfate 1 gram tablet (Carafate) 1 g PO QAC #90 tabs 10/21/22 [Rx Last Taken 02/12/23] famotidine 40 mg tablet 40 mg PO DAILY #30 tabs 10/29/22 [Rx Last Taken 02/12/23] furosemide 40 mg tablet 20 - 60 mg PO DAILY PRN diuretic 11/25/22 [History Last Taken Unknown] ondansetron HCl 4 mg tablet 4 mg PO Q8H PRN Nausea And Vomiting 11/26/22 [History Last Taken Unknown] diltiazem HCl 120 mg capsule,extended release 24 hr 120 mg PO BID heart #60 caps 11/30/22 [Rx Last Taken 02/12/23] piuysc-[id number] 36,000-114,000-180,000 unit capsule,delay rel (Creon) See Rx Instructions PO .COMPLEX #320 caps 01/06/23 [Rx Last Taken 02/12/23] lidocaine 4 % topical patch (Lidocaine Pain Relief) 1 patch topical Q12H PAIN 02/13/23 [History Last Taken 02/12/23] amoxicillin 875 mg-potassium clavulanate 125 mg tablet 1 tab PO BID 9 days #19 tabs 02/16/23 [Rx Last Taken Unknown] warfarin 2 mg tablet See Rx Instructions .Route .COMPLEX blood thinner #30 tabs 02/16/23 [Rx Last Taken 02/12/23] warfarin 4 mg tablet See Rx Instructions .Route .COMPLEX #30 tabs 02/16/23 [Rx Last Taken 02/11/23] cholecalciferol (vitamin D3) 25 mcg (1,000 unit) capsule (Vitamin D3) 1,000 unit PO DAILY 02/19/23 [History Last Taken Unknown] hydromorphone 2 mg tablet 1 - 2 mg PO Q6H PRN Pain 02/19/23 [History Last Taken Unknown] isosorbide mononitrate 30 mg tablet,extended release 24 hr 30 mg PO BID 02/19/23 [History Last Taken Unknown] metoclopramide HCl 5 mg tablet 2.5 - 5 mg PO Q6H PRN Pain 02/19/23 [History Last Taken Unknown] polyethylene glycol 3350 17 gram oral powder packet 17 g PO DAILY 02/19/23 [History Last Taken Unknown] sennosides 8.6 mg capsule (senna) 8.6 mg PO BID PRN Constipation 02/19/23 [History Last Taken Unknown] vitamin A 7,500 mcg (25,000 unit) capsule 25,000 unit PO DAILY 02/19/23 [History Last Taken Unknown] Allergy/AdvReac Type Severity Reaction Status Date / Time diclofenac Allergy rash Verified 02/19/23 19:50 prednisone Allergy Rash Verified 02/19/23 19:50 Family History Father Cancer Prostate cancer Mother Hypertension Sister Hypertension Surgical History History of back surgery History of back surgery History of cardiac catheterization History of cardioversion (06/18/19) History of coronary artery stent placement (08/04/00) History of electrophysiologic study (08/08/00) History of esophagogastroduodenoscopy (EGD) History of hemorrhoidectomy History of hernia repair History of left heart catheterization (07/17/12) History of Zenaida fundoplication History of radiofrequency ablation procedure for cardiac arrhythmia (11/11/11) Social History household members: none Smoking Status: Never smoker alcohol intake: never substance use type: does not use caffeine: No ROS ROS Narrative Pertinent positives and pertinent negatives as noted in HPI. All other systems were reviewed and are negative Vital Signs Vital Signs Vital Signs: 02/19/23 19:51 Temperature 97.5 F L Temperature Source Temporal Pulse Rate 94 Respiratory Rate 18 Blood Pressure 154/93 H Blood Pressure Mean 113 Pulse Ox 93 Oxygen Delivery Method Room Air Weight Weight: 65.862 kg Body Mass Index (BMI) 22.1 Physical Exam Narrative Physical exam: General: Well-nourished, well-developed. Head: Normocephalic, atraumatic, no tenderness Eyes: Vision is grossly intact. EOMI ENT, no trauma, moist mucous membranes, no rhinorrhea Neck: Nontender, No thyromegaly. CVS: Regular rate and rhythm. S1-S2 present. No murmur, gallop or rub. Respiratory : clear to auscultation bilaterally, chest wall nontender Abdomen: Soft, nontender, nondistended, normal bowel sounds, no masses : Deferred Back: Nontender, no CVA tenderness. Extremities: Straight leg test positive bilateral. Skin: Normal color, no trauma, abrasions Neuro: Alert, oriented, cranial nerves II through XII grossly intact. Psychiatry: Normal mood. Normal affect. Not depressed. Not anxious. Results Lab / Micro Data Result Diagrams: 02/19/23 20:00 02/19/23 20:00 Labs: Laboratory Results - last 24 hr 02/19/23 20:00: WBC 14.1 H, RBC 3.26 L, Hgb 12.1 L, Hct 35.8 L, MCV 109.8 H, MCH 37.1 H, MCHC 33.8, RDW Std Deviation 64.7 H, RDW Coeff of Pablo 15.9 H, Plt Count 388, MPV 10.9, Immature Gran % (Auto) 1.300 H, Neut % (Auto) 84.7 H, Lymph % (Auto) 4.2 L, [place] % (Auto) 8.4, Eos % (Auto) 1.0, Baso % (Auto) 0.4, Absolute Neuts (auto) 12.0 H, Absolute Lymphs (auto) 0.59 L, Nucleated RBC % 0, Differential Comment 02/19/23 20:00: Sodium 139, Potassium 3.9, Chloride 106, Carbon Dioxide 25.0, Anion Gap 8, BUN 29 H, Creatinine 1.83 H, Estim Creat Clear Calc 29.49, Est GFR (MDRD) Af Amer 46 L, Est GFR (MDRD) Non-Af 38 L, BUN/Creatinine Ratio 15.8, Glucose 123 H, Calcium 9.2 Radiology Impression Abdomen/Pelvis CT 02/19/23 21:12 IMPRESSION: Decreased pericolonic inflammatory changes from diverticulitis seen on comparison exam February 13, 2023. No current evidence of diverticulitis. Numerous large diverticula are seen throughout the entire colon. Electronically Signed: Indio Harris DO at 21:56 EDT , ADDENDUM: 02/19/23 3228 IMPRESSION: undefined Assessment & Plan Assessment/Plan (1) Acute exacerbation of chronic low back pain: (2) Hypercoagulable state due to atrial fibrillation: PLAN: Plan Acute Exacerbation of chronic low back pain Home Dilaudid dose and frequency escalated. PT and OT worked with patient's for balance training and assess for placement. Protocol including Linzess in place. Chronic pancreatitis Radiologist impression of CT abdomen and pelvis: CT of abdomen and pelvis revealed no evidence of diverticulitis. Findings suspicious for heavy-duty hematochromatosis. Ferritin level recommended. CT of abdomen and pelvis was independent interpreted and I agree with drug interpretation of no evidence of diverticulitis. Stable Pancreatic enzymes continue. Ferritin level ordered. Hypertension Blood pressure is not within goal Home blood pressure medication continued. As needed hydralazine ordered. Trend blood pressure and adjust blood pressure medications. Paroxysmal A-fib with supratherapeutic INR/hypercoagulable state due to A-fib Stable Amiodarone and metoprolol continued. INR level on presentation 4.5. Home warfarin held secondary to supratherapeutic INR. Trend INR. DVT prophylaxis SCDs ordered. Charges/Coding Visit Charges Inpatient E&M: 04886 Init Hosp L3
[2023-02-19] MEDS: HYDROmorphone 0.5 MG/0.5 ML SYRINGE IV (23:03)
[2023-02-19 23:04] VITALS: BP 142/96; PULSE 94; RESP 18; TEMP 36.7; O2SAT 92
[2023-02-19 23:40] VITALS: BP 137/81; PULSE 86; RESP 16; TEMP 37.1; O2SAT 96
[2023-02-19 23:54] VITALS: BMI 20.9
[2023-02-19 23:56] VITALS: BP 143/88; PULSE 89; RESP 18; TEMP 36.7; O2SAT 92
[2023-02-20 04:16] VITALS: BP 156/98; PULSE 91; RESP 18; TEMP 36.6; O2SAT 94
[2023-02-20 05:50] VITALS: BP 150/101; PULSE 90
[2023-02-20] MEDS: Levothyroxine 50 MCG Tablet PO (05:50)
[2023-02-20] MEDS: Metoprolol Tartrate 25 MG Tablet 12.5 MG PO ×2 (05:50→21:33)
[2023-02-20] MEDS: Sucralfate 1 GM Tablet PO ×3 (05:50→15:53)
[2023-02-20 06:15] LABS: Absolute Lymphocyte Count 0.53 X10^3/uL (0.83-4.51); Absolute Neutrophil Count 9.5 X10^3/uL (2.0-7.7); Basophil# 0.04 X10^3/uL; Basophil% 0.4 % (0-1); Eosinophil# 0.18 X10^3/uL; Eosinophils% 1.6 % (0-5); Hematocrit 32.3 % (40-54); Hemoglobin 10.9 g/dL (13.0-16.5); Lymphocyte # 0.53 X10^3/ul (0.83-4.51); Lymphocyte % 4.7 % (19-41); Mean Corp Hgb Conc 33.7 g/dL (32-36); Mean Corpuscular Hgb 37.3 pg (27.0-32.0); Mean Corpuscular Volume 110.6 fL (80-94); Mean Platelet Vol. 9.8 fl (6.2-12.0); Monocyte# 0.95 X10^3/uL; Monocyte% 8.4 % (0-10); NRBC Flagged by Analyzer 0 % (0-5); Neutrophil # 9.51 X10^3/uL (2.7-7.7); Neutrophil % 84.3 % (47-70); POSITIVE DIFFERENTIAL YES; POSITIVE MORPHOLOGY YES; Platelet Count 231 K/mm3 (150-450); RBC Distribution Width CV 15.8 % (11.6-14.6); RBC Distribution Width SD 65.1 fl (35.1-43.9); Red Blood Count 2.92 M/mm3 (4.6-6.2); White Blood Count 11.3 K/mm3 (4.4-11.0)
[2023-02-20 06:32] LABS: International Normalized Ratio 1.9; Prothrombin Time (Protime)PT. 22.1 SECONDS (11.7-14.9)
[2023-02-20 06:36] LABS: Differential Indicated SCAN CRITERIA MET
[2023-02-20 06:37] LABS: Anisocytosis 2+; Differential Comment SCANNED; Macrocytosis 2+
[2023-02-20 06:44] LABS: Anion Gap 4 (5-15); BUN 22 mg/dL (7-18); BUN/Creat Ratio 15.9 RATIO (10-20); Calcium,Total 8.5 mg/dL (8.5-10.1); Chloride 110 mmol/L (98-107); Creatinine, Serum 1.38 mg/dL (0.70-1.30); EST Glomerular Filtration Rate 53 mL/min (>60); Est Glom Filt Rate - Afr Amer 64 mL/min (>60); Estimated Creatinine Clearance 37.11 ml/min; Glucose 91 mg/dL (74-106); Potassium 3.6 mmol/L (3.5-5.1); Sodium Level 141 mmol/L (136-145)
[2023-02-20 06:53] LABS: Ferritin 166 ng/mL (26-388)
[2023-02-20 07:51] VITALS: O2SAT 91
[2023-02-20 08:03] VITALS: BP 149/101; PULSE 84; RESP 16; TEMP 36.7; O2SAT 94
[2023-02-20] MEDS: Creon 24,000 unit DR Capsule 3 CAP PO ×3 (08:10→17:49)
[2023-02-20] MEDS: Multivitamins,Therapeutic Tablet 1 TABLET PO (08:13)
[2023-02-20] MEDS: Potassium Chloride Oral Tablet 10 MEQ PO (08:13)
[2023-02-20] MEDS: Vitamin B Comp W-C Capsule 1 CAP PO ×2 (08:14→21:35)
[2023-02-20] MEDS: Cholecalciferol (VIT D3) 25 MCG TABLET (1,000 UNITS) PO (08:15)
[2023-02-20] MEDS: Isosorbide Mononitrate 30 MG Tablet PO ×2 (08:15→21:32)
[2023-02-20] MEDS: Loratadine 10 MG Tablet PO (08:16)
[2023-02-20] MEDS: Amiodarone 200 MG Tablet 100 MG PO ×2 (08:16→21:34)
[2023-02-20] MEDS: Lidocaine 5% Patch 1 PATCH TOPICAL (08:16)
[2023-02-20] MEDS: Pantoprazole Sodium 40 MG Tablet PO (08:18)
[2023-02-20] MEDS: Polyethylene Glycol 3350 17 GM PACKET PO (08:18)
[2023-02-20] MEDS: Ascorbic Acid 500 MG Tablet PO (08:18)
[2023-02-20] MEDS: Famotidine 20 MG Tablet PO (08:19)
[2023-02-20] MEDS: Finasteride 5 MG Tablet PO (08:20)
[2023-02-20] MEDS: dilTIAZem CD 120 MG Capsule PO ×2 (08:20→21:33)
[2023-02-20 15:51] VITALS: BP 138/88; PULSE 79; RESP 16; TEMP 36.8; O2SAT 96
--- NOTE | 2023-02-20 16:11 | PN.HOSP_ITS ---
Subjective Subjective Doing well, no issues overnight. He has not needed any pain medication since admission. Objective Data Objective Data Vital Signs: Vital Signs Temp Pulse Resp BP Pulse Ox O2 Del Method 98.2 F 79 16 138/88 H 96 Room Air 02/20/23 15:51 02/20/23 15:51 02/20/23 15:51 02/20/23 15:51 02/20/23 15:51 02/20/23 15:51 Oxygen Delivery Method Room Air Weight: 137 lb 12.623 oz Body Mass Index (BMI) 20.9 Intake & Output: Intake and Output for Last 24 Hours 02/19/23 02/20/23 02/21/23 03:59 03:59 03:59 Intake Total 500 / 500 200 / 200 Output Total 300 / 300 Balance 500 / 500 -100 / -100 Medical Nutrition Assessment Dietitian: Malnutrition Criteria Met Start: 02/20/23 11:06 Freq: Status: Active Protocol: Document 02/20/23 11:06 ARACELIS (Rec: 02/20/23 11:06 ARACELIS [id number]) Nutrition Malnutrition Evidence of Malnutrition Exists Yes Malnutrition (severe): Acute Illness/Injury Evidenced By Suboptimal Energy Intake ( Severe),Weight Loss (Severe) Clinical Problem Acute Disease or Injury Related Malnutrition Etiology related to back pain and inadequate energy intake Signs/Symptoms as evidenced by <75% of est nutritional needs x 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 and 7.1% unintended wt loss 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 Status Active Problem Recommendation Dietitian Recommendations/Changes Will liberalize diet to Regular No Added Salt d/t signs and symptoms of malnutrition Continue 4 oz ensure plus high protein tid w/ medpass Lab / Micro Data Result Diagrams: 02/20/23 05:55 02/20/23 05:47 Labs: Laboratory Results - last 24 hr 02/19/23 20:00: WBC 14.1 H, RBC 3.26 L, Hgb 12.1 L, Hct 35.8 L, MCV 109.8 H, MCH 37.1 H, MCHC 33.8, RDW Std Deviation 64.7 H, RDW Coeff of Pablo 15.9 H, Plt Count 388, MPV 10.9, Immature Gran % (Auto) 1.300 H, Neut % (Auto) 84.7 H, Lymph % (Auto) 4.2 L, [place] % (Auto) 8.4, Eos % (Auto) 1.0, Baso % (Auto) 0.4, Absolute Neuts (auto) 12.0 H, Absolute Lymphs (auto) 0.59 L, Nucleated RBC % 0, Differential Comment 02/19/23 20:00: Sodium 139, Potassium 3.9, Chloride 106, Carbon Dioxide 25.0, Anion Gap 8, BUN 29 H, Creatinine 1.83 H, Estim Creat Clear Calc 29.49, Est GFR (MDRD) Af Amer 46 L, Est GFR (MDRD) Non-Af 38 L, BUN/Creatinine Ratio 15.8, Glucose 123 H, Calcium 9.2 02/20/23 05:47: Sodium 141, Potassium 3.6, Chloride 110 H, Carbon Dioxide 27.0, Anion Gap 4 L, BUN 22 H, Creatinine 1.38 H, Estim Creat Clear Calc 37.11, Est GFR (MDRD) Af Amer 64, Est GFR (MDRD) Non-Af 53 L, BUN/Creatinine Ratio 15.9, Glucose 91, Calcium 8.5 02/20/23 05:47: Ferritin 166 02/20/23 05:55: WBC 11.3 H, RBC 2.92 L, Hgb 10.9 L, Hct 32.3 L, MCV 110.6 H, MCH 37.3 H, MCHC 33.7, RDW Std Deviation 65.1 H, RDW Coeff of Pablo 15.8 H, Plt Count 231, MPV 9.8, Immature Gran % (Auto) 0.600, Neut % (Auto) 84.3 H, Lymph % (Auto) 4.7 L, [place] % (Auto) 8.4, Eos % (Auto) 1.6, Baso % (Auto) 0.4, Absolute Neuts (auto) 9.5 H, Absolute Lymphs (auto) 0.53 L, Nucleated RBC % 0, Differential Comment SCANNED, Anisocytosis 2+, Macrocytosis 2+ 02/20/23 06:05: PT 22.1 H, INR 1.9 Radiography Diagnostic Testing: Radiology Impression Abdomen/Pelvis CT 02/19/23 21:12 IMPRESSION: Decreased pericolonic inflammatory changes from diverticulitis seen on comparison exam February 13, 2023. No current evidence of diverticulitis. Numerous large diverticula are seen throughout the entire colon. Electronically Signed: Indio Harris, DO at 21:56 EDT , ADDENDUM: 02/19/23 9802 IMPRESSION: undefined Physical Exam Narrative General: Alert, Oriented x3, Cooperative, No apparent distress HEENT: Atraumatic, PERRLA, EOMI, Normocephalic Oral: Moist mucosa Neck: Supple, No JVD Lungs: Clear to auscultation, Normal air movement, No rhonchi, No wheeze, No rales Cardiovascular: Regular rate, Regular Rhythm, Normal S1, Normal S2, No murmurs Abdomen: Soft, mild tender pubis, Non-Distended, No Hepato-splenomegaly Extremities: No edema, Capillary Refill Less than 3 Seconds Skin: No rashes, No breakdown Musculoskeletal: No Tenderness to Palpation of Joints or Extremities, no significant midline back pain with palpation straight leg raise does not elicit a pain response Neurological: Cranial nerves II-XII grossly intact, Motor Exam 5/5 strength th roughout, Sensory exam intact to light touch and pain Psych/Mental Status: Normal Affect, Appropriate Assessment & Plan Assessment/Plan (1) Acute exacerbation of chronic low back pain: (2) Hypercoagulable state due to atrial fibrillation: PLAN: Plan 1. Acute exacerbation of chronic low back pain ? Pain is much improved today however he cannot find a ride to go home ? Continue with pain medications as needed if necessary ? He does have an appointment with Dr. Weems from pain management for an injection on Tuesday. 2.? A. fib/CAD status post stent/HTN/HLD/chronic diastolic CHF ? Given his FE, will hold his Lasix ? EF of 60% on his echo in December 2020 ? Can resume his home Imdur as well as amiodarone and metoprolol ?Since he relates that there is a plan for possible injection on Tuesday, will hold his Coumadin and continue with SCDs. INR today is 1.9 3.? Hypothyroidism ? Stable ? Continue with Synthroid 4.? BPH ? Stable ? Continue with Flomax DVT: SCDs
--- NOTE | 2023-02-20 17:29 | NURSING ---
pt states he is unable to find a ride till tomorrow 02/21, This RN disc at length pts' pain level since admission to the floor (3-4) well controlled on his home med regimen, no addition pain meds since 0.5mg dilaudid in the ER, Dilaudid's half life, pt's issues at home. He states that he finds ADL (drsg, driving to get food and preparing it, taking care of his home) very difficult in light of the pain these activities cause him. He is requesting placement, at least temporarily, till his pain in more controlled. All above disc w/Dr. Eagle. Per his request, all above disc w/metal extrusion supervisor rahul Contreras. She will plan a meeting first thing tomorrow to disc his options as he has refused some options in the past and may find it diff to get placement.
[2023-02-20 21:33] VITALS: BP 145/93; PULSE 91; RESP 16; TEMP 36.7; O2SAT 95
[2023-02-20] MEDS: Tamsulosin HCl 0.4 MG Capsule PO (21:34)
[2023-02-20] MEDS: Acetaminophen 500 MG Tablet 1000 MG PO (21:38)
[2023-02-20] MEDS: Baclofen 10 MG Tablet 5 MG PO (21:39)
[2023-02-21 05:42] VITALS: BP 149/101; PULSE 90; RESP 20; TEMP 36.8; O2SAT 92
[2023-02-21] MEDS: Levothyroxine 50 MCG Tablet PO (05:44)
[2023-02-21] MEDS: Sucralfate 1 GM Tablet PO ×2 (05:44→11:24)
[2023-02-21 06:14] LABS: International Normalized Ratio 1.7; Prothrombin Time (Protime)PT. 20.4 SECONDS (11.7-14.9)
[2023-02-21 08:07] VITALS: BP 154/93; PULSE 94; RESP 18; TEMP 36.6; O2SAT 94
[2023-02-21] MEDS: Ondansetron ODT 4 MG Tablet PO (08:16)
[2023-02-21] MEDS: Baclofen 10 MG Tablet 5 MG PO (08:16)
[2023-02-21] MEDS: Acetaminophen 500 MG Tablet 1000 MG PO (08:17)
[2023-02-21] MEDS: Polyethylene Glycol 3350 17 GM PACKET PO (08:18)
[2023-02-21] MEDS: Pantoprazole Sodium 40 MG Tablet PO (08:18)
[2023-02-21] MEDS: Potassium Chloride Oral Tablet 10 MEQ PO (08:18)
[2023-02-21] MEDS: Vitamin B Comp W-C Capsule 1 CAP PO (08:18)
[2023-02-21] MEDS: Cholecalciferol (VIT D3) 25 MCG TABLET (1,000 UNITS) PO (08:18)
[2023-02-21] MEDS: Creon 24,000 unit DR Capsule 3 CAP PO ×2 (08:18→12:22)
[2023-02-21 08:19] VITALS: PULSE 94
[2023-02-21] MEDS: Metoprolol Tartrate 25 MG Tablet 12.5 MG PO (08:19)
[2023-02-21] MEDS: Ascorbic Acid 500 MG Tablet PO (08:19)
[2023-02-21] MEDS: Famotidine 20 MG Tablet PO (08:20)
[2023-02-21] MEDS: Loratadine 10 MG Tablet PO (08:20)
[2023-02-21] MEDS: Isosorbide Mononitrate 30 MG Tablet PO (08:20)
[2023-02-21] MEDS: Finasteride 5 MG Tablet PO (08:20)
[2023-02-21] MEDS: Amiodarone 200 MG Tablet 100 MG PO (08:20)
[2023-02-21] MEDS: dilTIAZem CD 120 MG Capsule PO (08:20)
[2023-02-21] MEDS: Multivitamins,Therapeutic Tablet 1 TABLET PO (08:20)
[2023-02-21] MEDS: Lidocaine 5% Patch 1 PATCH TOPICAL (08:21)
--- NOTE | 2023-02-21 09:16 | CASEMGMT ---
Social Work Per Dr. Eagle, recommending assisted placement for patient. This director of social media marketing reviewed therapy notes, patient does appear to be needing assistance with ADL's and patient lives alone. This director of social media marketing to patient room. Patient sitting up in chair and states to be having back pain. Patient requesting for this director of social media marketing to wait to have further conversation until patent is in bed. Patient pushed call light for assistance to be back to bed. This director of social media marketing to follow up at a later time to discuss assisted placement further. Social Work to continue to follow. Serina MAGALLON, RAVI-S
[2023-02-21] MEDS: Methocarbamol 750 MG Tablet PO (09:51)
--- NOTE | 2023-02-21 09:54 | CASEMGMT ---
Social Work SW met w/pt, as per physician pt agreeable to placement at this time. SW met w/pt, spoke w/him about discharge options. Pt is agreeable to SNF for rehab at this time. Pt lives home alone, has [facility]. Pt is normally independent with ADLS, but recently has been having a difficult time due to back pain. Pt confirms Dr. Chinchilla is PCP, and he sees a physician for pain management here, cannot remember the doctor's name. He states does have an appointment for an injection in his back tomorrow. Pt has a cane and walker and has been using both. Pt is struggling at home, for the last 2-3 months. He was here recently and went home (had a 3 day inpt stay to qualify for SNF under Medicare earlier this month, went home after this admission). SW educated pt on the Medicare SNF benefit. SW explained can make a referral and see which facility may take him. SW explained that he seems to be moving well according to the therapy notes, but we can still try to see if one of the intermediate facilities will take him. Pt stats understanding. [facility] provided to pt a list of intermediate facilities in network w/insurance, complete with quality and resource use data and in pt's preferred geographic area. Pt cannot see the list as he does not have his glasses with him, agreeable to SW reviewing list. SW reviewed list w/the pt, pt would like a referral to TCU. If TCU cannot take pt, [place] is his second choice. SW explained will make referral to TCU and let him know. SW called TCU, referral made, SW will continue to follow. JACQUES Pereira
[2023-02-21 11:20] VITALS: O2SAT 93
[2023-02-21] MEDS: HYDROmorphone 2 MG TABLET PO (12:22)
--- NOTE | 2023-02-21 12:49 | PN.HOSP_ITS ---
Subjective Subjective Doing well, no issues overnight Objective Data Objective Data Vital Signs: Vital Signs Temp Pulse Resp BP Pulse Ox O2 Del Method 97.9 F 94 18 154/93 H 93 Room Air 02/21/23 08:07 02/21/23 08:19 02/21/23 08:07 02/21/23 08:07 02/21/23 11:20 02/21/23 11:20 Oxygen Delivery Method Room Air Weight: 137 lb 12.623 oz Body Mass Index (BMI) 20.9 Intake & Output: Intake and Output for Last 24 Hours 02/20/23 02/21/23 02/22/23 03:59 03:59 03:59 Intake Total 500 / 500 200 / 200 Output Total 300 / 300 Balance 500 / 500 -100 / -100 Medical Nutrition Assessment Dietitian: Malnutrition Criteria Met Start: 02/20/23 11:06 Freq: Status: Active Protocol: Document 02/20/23 11:06 ARACELIS (Rec: 02/20/23 11:06 ARACELIS [id number]) Nutrition Malnutrition Evidence of Malnutrition Exists Yes Malnutrition (severe): Acute Illness/Injury Evidenced By Suboptimal Energy Intake ( Severe),Weight Loss (Severe) Clinical Problem Acute Disease or Injury Related Malnutrition Etiology related to back pain and inadequate energy intake Signs/Symptoms as evidenced by <75% of est nutritional needs x 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 and 7.1% unintended wt loss 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 Status Active Problem Recommendation Dietitian Recommendations/Changes Will liberalize diet to Regular No Added Salt d/t signs and symptoms of malnutrition Continue 4 oz ensure plus high protein tid w/ medpass Lab / Micro Data Result Diagrams: 02/20/23 05:55 02/20/23 05:47 Labs: Laboratory Results - last 24 hr 02/21/23 05:30: PT 20.4 H, INR 1.7 Physical Exam Narrative General: Alert, Oriented x3, Cooperative, No apparent distress HEENT: Atraumatic, PERRLA, EOMI, Normocephalic Oral: Moist mucosa Neck: Supple, No JVD Lungs: Clear to auscultation, Normal air movement, No rhonchi, No wheeze, No rales Cardiovascular: Regular rate, Regular Rhythm, Normal S1, Normal S2, No murmurs Abdomen: Soft, nontender, Non-Distended, No Hepato-splenomegaly Extremities: No edema, Capillary Refill Less than 3 Seconds Skin: No rashes, No breakdown Musculoskeletal: No Tenderness to Palpation of Joints or Extremities, no significant midline back pain Neurological: Cranial nerves II-XII grossly intact, Motor Exam 5/5 strength throughout, Sensory exam intact to light touch and pain Psych/Mental Status: Normal Affect, Appropriate Assessment & Plan Assessment/Plan (1) Acute exacerbation of chronic low back pain: (2) Hypercoagulable state due to atrial fibrillation: PLAN: Plan 1. Acute exacerbation of chronic low back pain ? Continue with pain medications as needed if necessary ? He does have an appointment with Dr. Weems from pain management for an injection on Tuesday. ? I did discuss with him the possibility for SNF placement due to pain and inability to complete ADLs based on the previous admission currently he is in agreement 2.? A. fib/CAD status post stent/HTN/HLD/chronic diastolic CHF ? Given his FE, will hold his Lasix ? EF of 60% on his echo in December 2020 ? Can resume his home Imdur as well as amiodarone and metoprolol ?Since he relates that there is a plan for possible injection on Tuesday, will hold his Coumadin and continue with SCDs. INR today is 1.9 3.? Hypothyroidism ? Stable ? Continue with Synthroid 4.? BPH ? Stable ? Continue with Flomax DVT: SCDs Charges/Coding Visit Charges Inpatient E&M: 12834 Subs Hosp L2
--- NOTE | 2023-02-21 13:29 | CASEMGMT ---
Discharge Planning Referral sent to [facility] via [facility]. Harriet Jimenez, Discharge Planning Asst.
--- NOTE | 2023-02-21 13:40 | CASEMGMT ---
Discharge Summary [facility] notified to disregard referral. Patient has been accepted to TCU. Harriet Jimenez, Discharge Planning Asst.
--- NOTE | 2023-02-21 13:47 | PCM.TXEXTCAR ---
Diet Diet Order/Speech Therapy: 02/20/23 11:06 Diet: Regular - No Added Salt Food consistency:: Regular Liquid Consistency:: Regular/Thin Type of Dietary Supplement:: Ensure Plus High Protein Is pt able to select menu?: Yes Diet Comments: ensure 120cc with meals Routine Orders/Code Status Routine Lab Work: CBC and BMP Code Status: Full Code Therapies Physical Therapy: Eval and Treat Occupational Therapy: Eval and Treat Problem/Diagnosis (1) Acute exacerbation of chronic low back pain: Status: Chronic Code(s): M54.50 - Low back pain, unspecified; G89.29 - Other chronic pain (2) Hypercoagulable state due to atrial fibrillation: Status: Acute Code(s): D68.69 - Other thrombophilia; I48.91 - Unspecified atrial fibrillation Plan 1. Acute exacerbation of chronic low back pain ? Continue with pain medications as needed if necessary ? He does have an appointment with Dr. Weems from pain management for an injection on Tuesday. ? I did discuss with him the possibility for SNF placement due to pain and inability to complete ADLs based on the previous admission currently he is in agreement 2.? A. fib/CAD status post stent/HTN/HLD/chronic diastolic CHF ? Given his FE, will hold his Lasix ? EF of 60% on his echo in December 2020 ? Can resume his home Imdur as well as amiodarone and metoprolol ?Since he relates that there is a plan for possible injection on Tuesday, will hold his Coumadin and continue with SCDs. INR today is 1.9 3.? Hypothyroidism ? Stable ? Continue with Synthroid 4.? BPH ? Stable ? Continue with Flomax DVT: SCDs Allergies/Procedures Done in Hospital Allergies diclofenac Allergy (Verified 02/19/23 19:50) rash prednisone Allergy (Verified 02/19/23 19:50) Rash Procedures: None Type of Care/Length of Stay Estimated LOS: Convalescent Care Less Than 30 days Type of Care Needed: Skilled Rehab Potential: Good Prognosis: Good Additional Orders/Day of Discharge Day of Discharge: 02/21/23 Dietary and Speech Recommendations Dietitian Recommendations/Changes: Will liberalize diet to Regular No Added Salt d/t signs and symptoms of malnutrition Continue 4 oz ensure plus high protein tid w/ medpass Discharge Plan Admission Admit Date/Time: 02/19/23 22:38 Attending Provider: Mehrdad Eagle Primary Care Provider: César Chinchilla Consulting Providers: Kulwinder Bryan Discharge Orders/Prescriptions Prescriptions: Continued tamsulosin 0.4 mg capsule 0.4 mg PO QHS levothyroxine 25 mcg tablet 50 mcg PO DAILY Label Comments: take 1 tablet by mouth once daily acetaminophen 500 mg capsule 1,000 mg PO Q6H PRN (Reason: Pain) ascorbic acid (vitamin C) 500 mg tablet 500 mg PO DAILY finasteride 5 mg tablet 5 mg PO DAILY Prolia 60 MG/ML syringe 60 mg SQ .[id number] pantoprazole 40 mg Tablet,Delayed Release (Dr/Ec) 40 mg PO DAILY vitamin B complex Capsule 1 cap PO BID coenzyme Q10 [Co Q-10] 100 mg Capsule 100 mg PO DAILY baclofen 5 mg Tablet 5 mg PO TID PRN (Reason: muscle spasms) multivitamin Tablet 1 tab PO DAILY loratadine 10 mg Capsule 10 mg PO DAILY ondansetron HCl 4 mg Tablet 4 mg PO Q8H PRN (Reason: Nausea And Vomiting) lidocaine [Lidocaine Pain Relief] 4 % adhesive patch,medicated 1 patch TOPICAL Q12H amoxicillin-pot clavulanate 875-125 mg tablet 1 tab PO BID 9 Days Qty: 19 0RF warfarin 4 mg Tablet See Rx Instructions .ROUTE .COMPLEX Qty: 30 0RF Protocol: Dose Management Condition: Tuesday Dose/Route: 2 mg Instruction: 1 x 2 mg tablet Condition: Tuesday Dose/Route: 2 mg Instruction: 1 x 2 mg tablet Condition: Tuesday Dose/Route: 2 mg Instruction: 1 x 2 mg tablet Condition: Tuesday Dose/Route: 0 mg Instruction: 0 tablets Condition: Dose/Route: 2 mg Instruction: 1 x 2 mg tablet Condition: Tuesday Dose/Route: 4 mg Instruction: 1 x 4 mg tablet Condition: Tuesday Dose/Route: 2 mg Instruction: 1 x 2 mg tablet Protocol Text: Adjustment Start Date: Tuesday02/16/23 INR Value: 4.5 INR Date: 02/16/23 Recheck Date: 02/21/23 Rx Instructions: 4mg Tue, Tue, Tue. 2mg Tue, , , Tue warfarin 2 mg tablet See Rx Instructions .ROUTE .COMPLEX Qty: 30 0RF Protocol: Dose Management Condition: Tuesday Dose/Route: 2 mg Instruction: 1 x 2 mg tablet Condition: Tuesday Dose/Route: 2 mg Instruction: 1 x 2 mg tablet Condition: Tuesday Dose/Route: 2 mg Instruction: 1 x 2 mg tablet Condition: Tuesday Dose/Route: 0 mg Instruction: 0 tablets Condition: Dose/Route: 2 mg Instruction: 1 x 2 mg tablet Condition: Tuesday Dose/Route: 4 mg Instruction: 1 x 4 mg tablet Condition: Tuesday Dose/Route: 2 mg Instruction: 1 x 2 mg tablet Protocol Text: Adjustment Start Date: Tuesday02/16/23 INR Value: 4.5 INR Date: 02/16/23 Recheck Date: 02/21/23 Label Comments: Adjustment 01/03. Pt to take 2mg Wednesday 01/03, 2mg Thursday 01/04. Retest 01/05. Rx Instructions: 4mg Tue, Tue, Tue. 2mg Tue, , , Tue hydromorphone 2 mg Tablet 1 - 2 mg PO Q6H PRN (Reason: Pain) metoclopramide HCl 5 mg Tablet 2.5 - 5 mg PO Q6H PRN (Reason: Pain) vitamin A 7,500 mcg (25,000 unit) Capsule 25,000 unit PO DAILY polyethylene glycol 3350 17 gram Powder In Packet 17 g PO DAILY isosorbide mononitrate 30 mg tablet extended release 24 hr 30 mg PO BID cholecalciferol (vitamin D3) [Vitamin D3] 25 mcg (1,000 unit) Capsule 1,000 unit PO DAILY senna 8.6 mg Capsule 8.6 mg PO BID PRN (Reason: Constipation) metoprolol tartrate 25 mg tablet 12.5 mg PO BID Qty: 90 3RF amiodarone 100 mg tablet 100 mg PO BID Qty: 180 3RF potassium chloride 10 mEq tablet extended release 10 meq PO DAILY Qty: 60 11RF sucralfate [Carafate] 1 gram tablet 1 g PO QAC Qty: 90 0RF Rx Instructions: take two hours away from other medication. famotidine 40 mg tablet 40 mg PO DAILY Qty: 30 3RF furosemide 40 mg tablet 20 - 60 mg PO DAILY PRN (Reason: diuretic) Hold Instructions: Resume on 02/18/23. Rx Instructions: as needed for weight gain of 3# in one day diltiazem HCl 120 mg capsule,extended release 24hr 120 mg PO BID Qty: 60 11RF Creon 36,000-114,000- 180,000 unit capsule,delayed release(DR/EC) See Rx Instructions PO .COMPLEX Qty: 320 3RF Rx Instructions: take 1-2 with snacks and 2-3 with meals Held Linzess 72 mcg capsule 72 mcg PO DAILY PRN (Reason: Diarrhea) Hold Instructions: Resume on 02/22/23. Restart on Discharge from TCU Referrals / Follow Up: César Chinchilla MD [Primary Care Provider] - Disposition Disposition (needs filled in before D/C Order can be placed): Assisted Facility
--- NOTE | 2023-02-21 13:52 | PCM.DC.SUM ---
Providers Date of Admission: 02/19/23 Primary Care Physician: Dr. César Chinchilla MD Reason For Visit: INTRACTABLE LOWER BACK PAIN Diagnosis Discharge Diagnosis (1) Acute exacerbation of chronic low back pain: Status: Chronic Code(s): M54.50 - Low back pain, unspecified; G89.29 - Other chronic pain (2) Hypercoagulable state due to atrial fibrillation: Status: Acute Code(s): D68.69 - Other thrombophilia; I48.91 - Unspecified atrial fibrillation Medications at Discharge Home Medications denosumab 60 mg/mL subcutaneous syringe (Prolia) 60 mg SQ .[id number] BONES 12/09/20 tamsulosin 0.4 mg capsule 0.4 mg PO QHS bladder 11/18/21 levothyroxine 25 mcg tablet 50 mcg PO DAILY 02/17/22 baclofen 5 mg tablet 5 mg PO TID PRN muscle spasms 05/01/22 coenzyme Q10 100 mg capsule (Co Q-10) 100 mg PO DAILY 05/01/22 pantoprazole 40 mg tablet,delayed release 40 mg PO DAILY 05/01/22 vitamin B complex 1 cap PO BID 05/01/22 metoprolol tartrate 25 mg tablet 12.5 mg PO BID #90 tabs 06/10/22 acetaminophen 500 mg capsule 1,000 mg PO Q6H PRN Pain 06/15/22 linaclotide 72 mcg capsule (Linzess) 72 mcg PO DAILY PRN Diarrhea 06/15/22 ascorbic acid (vitamin C) 500 mg tablet 500 mg PO DAILY 07/20/22 finasteride 5 mg tablet 5 mg PO DAILY 08/05/22 amiodarone 100 mg tablet 100 mg PO BID #180 tabs 08/09/22 loratadine 10 mg capsule 10 mg PO DAILY 08/16/22 multivitamin 1 tab PO DAILY 08/16/22 potassium chloride 10 mEq tablet,extended release 10 meq PO DAILY #60 tabs 10/14/22 sucralfate 1 gram tablet (Carafate) 1 g PO QAC #90 tabs 10/21/22 famotidine 40 mg tablet 40 mg PO DAILY #30 tabs 10/29/22 furosemide 40 mg tablet 20 - 60 mg PO DAILY PRN diuretic 11/25/22 ondansetron HCl 4 mg tablet 4 mg PO Q8H PRN Nausea And Vomiting 11/26/22 diltiazem HCl 120 mg capsule,extended release 24 hr 120 mg PO BID heart #60 caps 11/30/22 [id number] 36,000-114,000-180,000 unit capsule,delay rel (Creon) See Rx Instructions PO .COMPLEX #320 caps 01/06/23 lidocaine 4 % topical patch (Lidocaine Pain Relief) 1 patch topical Q12H PAIN 02/13/23 amoxicillin 875 mg-potassium clavulanate 125 mg tablet 1 tab PO BID 9 days #19 tabs 02/16/23 warfarin 2 mg tablet See Rx Instructions .Route .COMPLEX blood thinner #30 tabs 02/16/23 warfarin 4 mg tablet See Rx Instructions .Route .COMPLEX #30 tabs 02/16/23 cholecalciferol (vitamin D3) 25 mcg (1,000 unit) capsule (Vitamin D3) 1,000 unit PO DAILY 02/19/23 hydromorphone 2 mg tablet 1 - 2 mg PO Q6H PRN Pain 02/19/23 isosorbide mononitrate 30 mg tablet,extended release 24 hr 30 mg PO BID 02/19/23 metoclopramide HCl 5 mg tablet 2.5 - 5 mg PO Q6H PRN Pain 02/19/23 polyethylene glycol 3350 17 gram oral powder packet 17 g PO DAILY 02/19/23 sennosides 8.6 mg capsule (senna) 8.6 mg PO BID PRN Constipation 02/19/23 vitamin A 7,500 mcg (25,000 unit) capsule 25,000 unit PO DAILY 02/19/23 Hospital Course Operations None Procedures None Summary of Care Provided Minutes Spent on Discharge: 32 Hospital Course: Per HPI: RICHIE HANSEN, is a 82 M with a significant history of chronic pancreatitis; hypertension; hypothyroidism; BPH; and atrial fibrillation who presents emergency department with excruciating right flank pain that radiates across his entire back.? Of note patient's chronic back pain worsened about 2 weeks ago.? He saw Dr. Richardson at pain management about 2 weeks ago and received a shot at his back.? Also recently patient's pain medication, Dilaudid, was escalated by his PCP.? However patient continued to have pain.? Patient's pain is constant with some intermittent checks.? Pain intensity is about 7-8 on a scale of 1-10.? The patient pain worsens with lying on his back and rolling.? His pain improves with lying on his side.? Patient bowels move a day before presentation but on the day of presentation at the time of history taking (close to midnight)? patient bowels had not moved..? And day of presentation he had not fully taken his bowel regimen.? Patient reports nausea and vomiting. Reported because of pain patient he is unable to care of himself. Of note patient was admitted to the hospital on 13 February 2023 and discharged on 16 February 2023 for diverticulitis. Hospital Course: 1. Acute exacerbation of chronic low back pain with physical decline and inability to complete ADLs?82-year-old male was recently admitted to the hospital with diverticulitis. He was discharged on Augmentin but presented back to the hospital with worsening back pain as well as a decline in functioning and inability to complete ADLs. Since being in the hospital with physical therapy he has not needed any significant dosages of narcotics. Given his recent diagnosis of diverticulitis we will resume his Augmentin with completion on 02/25/2023. I discussed with him the possibility for discharge to SNF for increased physical therapy to help with his back pain as well as to assist with ADLs, he was agreeable. We will plan to discharge to SNF today. 2. A-fib, coronary artery disease status post stent, hypertension, hyperlipidemia, chronic diastolic CHF, hypothyroidism, BPH, chronic pancreatitis are all chronic medical conditions which complicate his care. His home medications were continued where appropriate. Will hold his Linzess given expense and can be restarted after discharge from SNF Medical Records Data Medical Nutrition Assessment Dietitian: Malnutrition Criteria Met Start: 02/20/23 11:06 Freq: Status: Active Protocol: Document 02/20/23 11:06 ARACELIS (Rec: 02/20/23 11:06 ARACELIS [id number]) Nutrition Malnutrition Evidence of Malnutrition Exists Yes Malnutrition (severe): Acute Illness/Injury Evidenced By Suboptimal Energy Intake ( Severe),Weight Loss (Severe) Clinical Problem Acute Disease or Injury Related Malnutrition Etiology related to back pain and inadequate energy intake Signs/Symptoms as evidenced by <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 and 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 Status Active Problem Recommendation Dietitian Recommendations/Changes Will liberalize diet to Regular No Added Salt d/t signs and symptoms of malnutrition Continue 4 oz ensure plus high protein tid w/ medpass Weight / BMI Weight Weight: 137 lb 12.623 oz Body Mass Index (BMI) 20.9 ABG / Lab / Microbiology Data Result Diagrams: 02/20/23 05:55 02/20/23 05:47 Laboratory: Laboratory Results - last 24 hr 02/21/23 05:30: PT 20.4 H, INR 1.7 Meaningful Use Info Meaningful Use Diagnoses (Choose all that apply): None applicable Discharge Plan Admission Admit Date/Time: 02/19/23 22:38 Attending Provider: Mehrdad Eagle Primary Care Provider: César Chinchilla Consulting Providers: Kulwinder Bryan Discharge Orders/Prescriptions Prescriptions: Continued tamsulosin 0.4 mg capsule 0.4 mg PO QHS levothyroxine 25 mcg tablet 50 mcg PO DAILY Label Comments: take 1 tablet by mouth once daily acetaminophen 500 mg capsule 1,000 mg PO Q6H PRN (Reason: Pain) ascorbic acid (vitamin C) 500 mg tablet 500 mg PO DAILY finasteride 5 mg tablet 5 mg PO DAILY Prolia 60 MG/ML syringe 60 mg SQ .[id number] pantoprazole 40 mg Tablet,Delayed Release (Dr/Ec) 40 mg PO DAILY vitamin B complex Capsule 1 cap PO BID coenzyme Q10 [Co Q-10] 100 mg Capsule 100 mg PO DAILY baclofen 5 mg Tablet 5 mg PO TID PRN (Reason: muscle spasms) multivitamin Tablet 1 tab PO DAILY loratadine 10 mg Capsule 10 mg PO DAILY ondansetron HCl 4 mg Tablet 4 mg PO Q8H PRN (Reason: Nausea And Vomiting) lidocaine [Lidocaine Pain Relief] 4 % adhesive patch,medicated 1 patch TOPICAL Q12H amoxicillin-pot clavulanate 875-125 mg tablet 1 tab PO BID 9 Days Qty: 19 0RF warfarin 4 mg Tablet See Rx Instructions .ROUTE .COMPLEX Qty: 30 0RF Protocol: Dose Management Condition: Tuesday Dose/Route: 2 mg Instruction: 1 x 2 mg tablet Condition: Tuesday Dose/Route: 2 mg Instruction: 1 x 2 mg tablet Condition: Tuesday Dose/Route: 2 mg Instruction: 1 x 2 mg tablet Condition: Tuesday Dose/Route: 0 mg Instruction: 0 tablets Condition: Dose/Route: 2 mg Instruction: 1 x 2 mg tablet Condition: Tuesday Dose/Route: 4 mg Instruction: 1 x 4 mg tablet Condition: Tuesday Dose/Route: 2 mg Instruction: 1 x 2 mg tablet Protocol Text: Adjustment Start Date: Tuesday02/16/23 INR Value: 4.5 INR Date: 02/16/23 Recheck Date: 02/21/23 Rx Instructions: 4mg Tue, Tue, Tue. 2mg Tue, , , Sat warfarin 2 mg tablet See Rx Instructions .ROUTE .COMPLEX Qty: 30 0RF Protocol: Dose Management Condition: Tuesday Dose/Route: 2 mg Instruction: 1 x 2 mg tablet Condition: Tuesday Dose/Route: 2 mg Instruction: 1 x 2 mg tablet Condition: Tuesday Dose/Route: 2 mg Instruction: 1 x 2 mg tablet Condition: Tuesday Dose/Route: 0 mg Instruction: 0 tablets Condition: Dose/Route: 2 mg Instruction: 1 x 2 mg tablet Condition: Tuesday Dose/Route: 4 mg Instruction: 1 x 4 mg tablet Condition: Tuesday Dose/Route: 2 mg Instruction: 1 x 2 mg tablet Protocol Text: Adjustment Start Date: Tuesday02/16/23 INR Value: 4.5 INR Date: 02/16/23 Recheck Date: 02/21/23 Label Comments: Adjustment 01/03. Pt to take 2mg Wednesday 01/03, 2mg Thursday 01/04. Retest 01/05. Rx Instructions: 4mg Tue, Tue, Tue. 2mg Sun, , Th, Sat hydromorphone 2 mg Tablet 1 - 2 mg PO Q6H PRN (Reason: Pain) metoclopramide HCl 5 mg Tablet 2.5 - 5 mg PO Q6H PRN (Reason: Pain) vitamin A 7,500 mcg (25,000 unit) Capsule 25,000 unit PO DAILY polyethylene glycol 3350 17 gram Powder In Packet 17 g PO DAILY isosorbide mononitrate 30 mg tablet extended release 24 hr 30 mg PO BID cholecalciferol (vitamin D3) [Vitamin D3] 25 mcg (1,000 unit) Capsule 1,000 unit PO DAILY senna 8.6 mg Capsule 8.6 mg PO BID PRN (Reason: Constipation) metoprolol tartrate 25 mg tablet 12.5 mg PO BID Qty: 90 3RF amiodarone 100 mg tablet 100 mg PO BID Qty: 180 3RF potassium chloride 10 mEq tablet extended release 10 meq PO DAILY Qty: 60 11RF sucralfate [Carafate] 1 gram tablet 1 g PO QAC Qty: 90 0RF Rx Instructions: take two hours away from other medication. famotidine 40 mg tablet 40 mg PO DAILY Qty: 30 3RF furosemide 40 mg tablet 20 - 60 mg PO DAILY PRN (Reason: diuretic) Hold Instructions: Resume on 02/18/23. Rx Instructions: as needed for weight gain of 3# in one day diltiazem HCl 120 mg capsule,extended release 24hr 120 mg PO BID Qty: 60 11RF Creon 36,000-114,000- 180,000 unit capsule,delayed release(DR/EC) See Rx Instructions PO .COMPLEX Qty: 320 3RF Rx Instructions: take 1-2 with snacks and 2-3 with meals Held Linzess 72 mcg capsule 72 mcg PO DAILY PRN (Reason: Diarrhea) Hold Instructions: Resume on 02/22/23. Restart on Discharge from TCU Referrals / Follow Up: César Chinchilla MD [Primary Care Provider] - Disposition Disposition (needs filled in before D/C Order can be placed): Alf Facility Charges/Coding Visit Charges Inpatient E&M: 57706 Disch Hosp >30min
--- NOTE | 2023-02-21 13:55 | CASEMGMT ---
Discharge Planning Patient is accepting of placement to TCU and message was left for his POA. Harriet Jimenez, Discharge Planning Asst.
[2023-02-21 14:15] VITALS: BP 109/62; PULSE 90; RESP 16; TEMP 36.8; O2SAT 94
== END 2023-02-21 14:30 | disposition skilled nursing facility (03) ==
LOC: ED 22:34 → MS3 23:15
PROVIDERS: Admitting Provider Hospitalist; Emergency Provider Emergency Medicine; PCP Family Medicine; Referring Provider Hospitalist; Visit Provider Family Medicine
DX: M54.50 Low back pain, unspecified (principal); I50.32 Chronic diastolic (congestive) heart failure; I13.0 Hypertensive heart and chronic kidney disease with heart failure and stage 1 through stage 4 chronic kidney disease, or unspecified chronic kidney disease; K86.1 Other chronic pancreatitis; I48.0 Paroxysmal atrial fibrillation; D68.59 Other primary thrombophilia; N18.32 Chronic kidney disease, stage 3b; R11.2 Nausea with vomiting, unspecified; E03.9 Hypothyroidism, unspecified; R53.81 Other malaise; G89.29 Other chronic pain; I25.10 Atherosclerotic heart disease of native coronary artery without angina pectoris; E78.00 Pure hypercholesterolemia, unspecified; N40.0 Benign prostatic hyperplasia without lower urinary tract symptoms; K21.9 Gastro-esophageal reflux disease without esophagitis; Z79.899 Other long term (current) drug therapy; Z79.890 Hormone replacement therapy
CPT/HCPCS: 36415; 74176; 80048; 82728; 85025; 85610; 96374; 96376; 97162; 97165; 97535; 97802; 99221; 99285; J7030; A4216; G0378; J2405

== ENCOUNTER 2023-02-21 14:35 | Inpatient (IN) | payer MEDICARE, OTHER, SELFPAY ==
[2023-02-21 14:48] VITALS: BP 113/68; PULSE 87; RESP 16; TEMP 36.5; O2SAT 97; BMI 20.8
[2023-02-21 16:28] LABS: International Normalized Ratio 1.6; Prothrombin Time (Protime)PT. 18.7 SECONDS (11.7-14.9)
[2023-02-21] MEDS: Isosorbide Mononitrate 30 MG Tablet PO (18:23)
[2023-02-21] MEDS: Creon 24,000 unit DR Capsule 3 CAP PO (18:24)
[2023-02-21] MEDS: Amiodarone 200 MG Tablet 100 MG PO (18:24)
[2023-02-21] MEDS: dilTIAZem CD 120 MG Capsule PO (18:26)
[2023-02-21] MEDS: Amox/Clavulanate 875 MG Tablet PO (18:26)
[2023-02-21 18:27] VITALS: PULSE 87
[2023-02-21] MEDS: Metoprolol Tartrate 25 MG Tablet 12.5 MG PO (18:27)
[2023-02-21] MEDS: Vitamin B Comp W-C Capsule 1 CAP PO (18:30)
[2023-02-21] MEDS: Ensure Plus High Protein 120 ML LIQUID PO (18:33)
[2023-02-21] MEDS: Tamsulosin HCl 0.4 MG Capsule PO (20:01)
[2023-02-21] MEDS: HYDROmorphone 2 MG TABLET PO (20:01)
--- NOTE | 2023-02-21 20:09 | HP.PCM_ITS ---
HPI - General General Date of Admission: 02/21/23 Date of Service: 02/21/23 Chief Complaint: Here for rehabilitation. HPI Narrative 02/19/2023 RICHIE HANSEN, is a 82 Male who presents to [facility] Emergency Department with nausea, vomiting. Recent hospitalization for diverticulitis on IV antibiotics, then oral antibiotics. Worsening low back pain, unable to care for self home alone. IV fluids, Zofran given with improvement. CT abdomen/pelvis showed significant improvement/resolution of diverticulitis. Unable to function at home due to low back pain, despite taking Dilaudid. 02/19/2023 Admit to Hospital. Dilaudid, PT/OT for low back pain. Warfarin held for INR 4.5. 02/20/2023 Low back pain improved. Hold Lasix for acute kidney injury. Hold warfarin to prepare for lumbar epidural steroid injection. 02/21/2023 Patient agreeable to SNF for PT/OT. Dr. Richardson planning lumbar epidural steroid injection 02/22/2023 at 1PM. 02/21/2023 Admit to TCU with debility, here for rehabilitation, strengthening, prior to discharge home alone. [facility] Medical History Acute constipation Acute diverticulitis of intestine Acute exacerbation of chronic low back pain Acute gastrointestinal bleeding Acute kidney injury superimposed on chronic kidney disease Ambulates with cane Anemia Arthritis Atherosclerotic heart disease of [place] coronary artery without angina pectoris Atrial fibrillation Atypical atrial flutter (12/2020) Back pain Benign prostatic hyperplasia BPH (benign prostatic hyperplasia) Cancer Cardiology follow-up encounter Chronic anemia Chronic heart failure with preserved ejection fraction (HFpEF) Chronic kidney disease Chronic renal insufficiency Colitis CPAP (continuous positive airway pressure) dependence Debility Diarrhea Difficulty chewing Dysphagia Easy bruising Elevated LFTs Elevated liver enzymes Essential (primary) hypertension Excessive bleeding Gastric reflux GI bleed (2012) High cholesterol History of atrial fibrillation History of colon polyps History of diverticulitis History of echocardiogram History of edema History of heart attack History of hyperthyroidism History of leukemia History of pain when walking History of renal disease History of stress test HLD (hyperlipidemia) Hypertension Kidney disease Kidney stones Myocardial infarct Nausea and vomiting Non-rheumatic tricuspid valve insufficiency Non-smoker Nonrheumatic mitral (valve) insufficiency 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 Osteoarthritis Paroxysmal atrial fibrillation Secondary pulmonary arterial hypertension Sleep apnea Sleep apnea Stage 3b chronic kidney disease Thoracic aortic aneurysm (TAA) Thyroid disease Wears glasses Home Medications denosumab 60 mg/mL subcutaneous syringe (Prolia) 60 mg SQ .[id number] BONES 12/09/20 [History Last Taken 11/10/22] tamsulosin 0.4 mg capsule 0.4 mg PO QHS bladder 11/18/21 [History Last Taken 02/12/23] levothyroxine 25 mcg tablet 50 mcg PO DAILY thyroid 02/17/22 [History Last Taken 02/12/23] baclofen 5 mg tablet 5 mg PO TID PRN muscle spasms 05/01/22 [History Last Taken Unknown] coenzyme Q10 100 mg capsule (Co Q-10) 100 mg PO DAILY supplement 05/01/22 [History Last Taken 02/12/23] pantoprazole 40 mg tablet,delayed release 40 mg PO DAILY stomach 05/01/22 [History Last Taken 02/12/23] vitamin B complex 1 cap PO BID supplement 05/01/22 [History Last Taken 02/12/23] acetaminophen 500 mg capsule 1,000 mg PO Q6H PRN Pain 06/15/22 [History Last Taken Unknown] linaclotide 72 mcg capsule (Linzess) 72 mcg PO DAILY PRN Diarrhea 06/15/22 [History Last Taken Unknown] ascorbic acid (vitamin C) 500 mg tablet 500 mg PO DAILY supplement 07/20/22 [History Last Taken 02/12/23] finasteride 5 mg tablet 5 mg PO DAILY prostate 08/05/22 [History Last Taken 02/12/23] loratadine 10 mg capsule 10 mg PO DAILY allergies 08/16/22 [History Last Taken 02/12/23] multivitamin 1 tab PO DAILY supplement 08/16/22 [History Last Taken 02/12/23] furosemide 40 mg tablet 40 mg PO BID PRN Weight Gain 11/25/22 [History Last Taken Unknown] ondansetron HCl 4 mg tablet 4 mg PO Q8H PRN Nausea And Vomiting 11/26/22 [History Last Taken Unknown] diltiazem HCl 120 mg capsule,extended release 24 hr 120 mg PO BID heart #60 caps 11/30/22 [Rx Last Taken 02/12/23] lidocaine 4 % topical patch (Lidocaine Pain Relief) 1 patch topical Q12H PAIN 02/13/23 [History Last Taken 02/12/23] warfarin 2 mg tablet See Rx Instructions .Route .COMPLEX blood thinner #30 tabs 02/16/23 [Rx Last Taken 02/12/23] cholecalciferol (vitamin D3) 25 mcg (1,000 unit) capsule (Vitamin D3) 1,000 unit PO DAILY supplement 02/19/23 [History Last Taken Unknown] hydromorphone 2 mg tablet 1 - 2 mg PO Q6H PRN Pain 02/19/23 [History Last Taken Unknown] isosorbide mononitrate 30 mg tablet,extended release 24 hr 30 mg PO BID heart 02/19/23 [History Last Taken Unknown] metoclopramide HCl 5 mg tablet 2.5 - 5 mg PO Q6H PRN Pain 02/19/23 [History Last Taken Unknown] polyethylene glycol 3350 17 gram oral powder packet 17 g PO DAILY constipation 02/19/23 [History Last Taken Unknown] sennosides 8.6 mg capsule (senna) 8.6 mg PO BID PRN Constipation 02/19/23 [Hi story Last Taken Unknown] vitamin A 7,500 mcg (25,000 unit) capsule 25,000 unit PO DAILY supplement 02/19/23 [History Last Taken Unknown] amiodarone 100 mg tablet 100 mg PO BID heart 02/21/23 [History Last Taken Unknown] amoxicillin 875 mg-potassium clavulanate 125 mg tablet 1 tab PO BID infection 02/21/23 [History Last Taken Unknown] famotidine 40 mg tablet 40 mg PO DAILY stomach 02/21/23 [History Last Taken Unknown] [id number] 36,000-114,000-180,000 unit capsule,delay rel (Creon) See Rx Instructions PO .COMPLEX digestion 02/21/23 [History Last Taken Unknown] metoprolol tartrate 25 mg tablet 12.5 mg PO BID heart 02/21/23 [History Last Taken Unknown] potassium chloride 10 mEq tablet,extended release 10 meq PO DAILY supplement 02/21/23 [History Last Taken Unknown] sucralfate 1 gram tablet (Carafate) 1 g PO QAC stomach 02/21/23 [History Last Taken Unknown] warfarin 4 mg tablet See Rx Instructions .ROUTE .COMPLEX blood thinner 02/21/23 [History Last Taken Unknown] Allergy/AdvReac Type Severity Reaction Status Date / Time diclofenac Allergy rash Verified 02/19/23 19:50 prednisone Allergy Rash Verified 02/19/23 19:50 Family History Father Cancer Prostate cancer Mother Hypertension Sister Hypertension Surgical History History of back surgery History of back surgery History of cardiac catheterization History of cardioversion (06/18/19) History of coronary artery stent placement (08/04/00) History of electrophysiologic study (08/08/00) History of esophagogastroduodenoscopy (EGD) History of hemorrhoidectomy History of hernia repair History of left heart catheterization (07/17/12) History of Zenaida fundoplication History of radiofrequency ablation procedure for cardiac arrhythmia (11/11/11) Social History household members: none Smoking Status: Never smoker alcohol intake: never substance use type: does not use caffeine: No ROS Constitutional Constitutional: Denies chills, fever(s) or weight gain ENT HEENT: Denies headache(s), nasal congestion or nasal discharge Cardiovascular Cardiovascular: Denies chest pain or palpitations Respiratory/Chest Respiratory/Chest: Denies cough, excessive phlegm production or shortness of breath with exertion Gastrointestinal Gastrointestinal: Denies abdominal pain, nausea or vomiting Genitourinary Genitourinary: Denies dysuria Musculoskeletal Musculoskeletal: Reports back pain; Denies joint pain or joint swelling Integumentary Integumentary: Denies rash or wounds Neurologic Neurologic: Denies focal weakness, numbness or tingling Psychiatric Psychiatric: Denies anxiety, auditory hallucinations, depression, homicidal ideation or suicidal ideation Vital Signs Vital Signs Vital Signs: 02/21/23 14:48 02/21/23 16:05 02/21/23 18:27 Temperature 97.7 F L Temperature Source Temporal Pulse Rate 87 87 Pulse Rhythm Irregular Pulse Strength Normal (2+) Respiratory Rate 16 Respiratory Effort Normal Non-Labored Respiratory Depth Normal Respiratory Pattern Normal Blood Pressure 113/68 Blood Pressure Mean 83 Blood Pressure Source Monitor Blood Pressure Position Sitting Blood Pressure Location Left Arm Pulse Ox 97 Oxygen Delivery Method Room Air Room Air Weight Weight: 62.233 kg Body Mass Index (BMI) 20.8 Physical Exam Const alert General Appearance: cooperative HEENT normocephalic Eyes PERRL and EOMs intact bilaterally Neck supple, no JVD and no carotid bruits Resp normal respiratory effort, normal air movement and clear to auscultation bilaterally Cardio regular rate and regular rhythm GI normal to inspection, nondistended, normoactive bowel sounds, non-tender and non-distended Extremity normal capillary refill General Extremity: Negative for edema Skin no rashes or lesions noted General Skin Exam: no breakdown Psych affect normal Appearance: appropriate Results Lab / Micro Data Labs: Laboratory Results - last 24 hr 02/21/23 16:09: PT 18.7 H, INR 1.6 Assessment & Plan Assessment/Plan (1) Debility: (2) Intractable low back pain: (3) Acute kidney injury: (4) Chronic kidney disease, stage 3b: (5) BPH (benign prostatic hyperplasia): (6) Osteoporosis: (7) Coronary artery disease: (8) Atrial fibrillation: (9) GERD (gastroesophageal reflux disease): (10) Iron deficiency anemia: PLAN: Plan 82 year old male with below past medical history significant for resolving diverticulitis, hospitalized for intractable low back pain, complicated by acute kidney injury, admitted to TCU with debility, here for rehabilitation, strengthening, prior to discharge home alone. * Debility - PT/OT. * Dysphagia - ST. * Pain - Tylenol 1000mg q6h prn pain (1-3), Dilaudid 1-2mg q6h prn pain (4-10), Lidoderm patch td daily. * Bowel - Miralax 17gm daily, Senokot 1 tablet bid prn. * Adult immunization - Administer pneumonia vaccine, covid19 vaccine, flu vaccine as appropriate. * DVT prophylaxis - on warfarin. * Atrial fibrillation - Metoprolol 12.5mg bid, Diltiazem 120mg bid, Amiodarone 100mg bidcm, Warfarin 2mg/4mg alternating. * Diverticulitis - Augmentin 875mg bid thru 02/26/2023. * Vitamin C deficiency - Vitamin C 500mg daily. * Muscle spasm - Baclofen 5mg tid prn. * Nutrition - Ensure Plus High 120ml po tidcm, MVI 1 tablet daily. * GERD - Famotidine 20mg daily, Pantoprazole 40mg daily, Sucralfate 1gm tid. * BPH - Finasteride 5mg daily, Tamsulosin 0.4mg qhs. * Edema - Furosemide 40mg bid prn weight gain 3 pounds or more. * Coronary artery disease - Metoprolol 12.5mg id, Imdur 30mg bid, Warfarin 2mg/4mg alternating. * Hypothyroidism - Levothyroxine 50mcg daily. 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 * Allergic rhinitis - Loratadine 10mg daily. * Nausea - Reglan 2.5mg - 5mg q6h prn, Zofran odt 4mg q8h prn. * Hypokalemia - KCL 10meq daily. * Vitamin B deficiency - Vitamin B complex 1 capsule bidcm. * Vitamin D deficiency - D3 25mcg daily.
[2023-02-22] MEDS: Isosorbide Mononitrate 30 MG Tablet PO ×2 (04:15→18:04)
[2023-02-22] MEDS: HYDROmorphone 2 MG TABLET PO ×3 (04:15→21:28)
[2023-02-22 04:16] VITALS: BP 144/91; PULSE 87
[2023-02-22] MEDS: Metoprolol Tartrate 25 MG Tablet 12.5 MG PO ×2 (04:16→18:05)
[2023-02-22] MEDS: dilTIAZem CD 120 MG Capsule PO ×2 (04:16→18:07)
[2023-02-22 05:24] LABS: Absolute Lymphocyte Count 0.59 X10^3/uL (0.83-4.51); Absolute Neutrophil Count 10.5 X10^3/uL (2.0-7.7); Basophil# 0.07 X10^3/uL; Basophil% 0.6 % (0-1); Eosinophil# 0.36 X10^3/uL; Eosinophils% 2.9 % (0-5); Hemoglobin 11.3 g/dL (13.0-16.5); Lymphocyte # 0.59 X10^3/ul (0.83-4.51); Lymphocyte % 4.7 % (19-41); Mean Corp Hgb Conc 34.2 g/dL (32-36); Mean Corpuscular Hgb 37.2 pg (27.0-32.0); Mean Corpuscular Volume 108.6 fL (80-94); Mean Platelet Vol. 9.7 fl (6.2-12.0); Monocyte# 0.93 X10^3/uL; Monocyte% 7.4 % (0-10); NRBC Flagged by Analyzer 0 % (0-5); Neutrophil # 10.52 X10^3/uL (2.7-7.7); Neutrophil % 83.7 % (47-70); POSITIVE DIFFERENTIAL YES; Platelet Count 260 K/mm3 (150-450); RBC Distribution Width CV 15.9 % (11.6-14.6); RBC Distribution Width SD 63.2 fl (35.1-43.9); Red Blood Count 3.04 M/mm3 (4.6-6.2); White Blood Count 12.6 K/mm3 (4.4-11.0)
[2023-02-22 05:29] LABS: Differential Indicated SCAN CRITERIA MET
[2023-02-22 05:47] LABS: Anion Gap 6 (5-15); BUN 28 mg/dL (7-18); BUN/Creat Ratio 18.8 RATIO (10-20); Calcium,Total 8.4 mg/dL (8.5-10.1); Chloride 106 mmol/L (98-107); Creatinine, Serum 1.49 mg/dL (0.70-1.30); EST Glomerular Filtration Rate 48 mL/min (>60); Est Glom Filt Rate - Afr Amer 58 mL/min (>60); Estimated Creatinine Clearance 34.23 ml/min; Glucose 95 mg/dL (74-106); Potassium 3.9 mmol/L (3.5-5.1); Sodium Level 139 mmol/L (136-145)
[2023-02-22] MEDS: Sucralfate 1 GM Tablet PO ×3 (06:24→16:35)
[2023-02-22] MEDS: Finasteride 5 MG Tablet PO (06:25)
[2023-02-22] MEDS: Levothyroxine 25 MCG TABLET 50 MCG PO (06:25)
[2023-02-22] MEDS: Cholecalciferol (VIT D3) 25 MCG TABLET (1,000 UNITS) PO (06:25)
[2023-02-22] MEDS: Pantoprazole Sodium 40 MG Tablet PO (06:25)
[2023-02-22] MEDS: Loratadine 10 MG Tablet PO (06:25)
[2023-02-22] MEDS: Famotidine 20 MG Tablet PO (06:25)
[2023-02-22] MEDS: Polyethylene Glycol 3350 17 GM PACKET PO (06:26)
[2023-02-22 06:42] LABS: Differential Comment SCANNED
[2023-02-22 08:15] VITALS: PULSE 69; RESP 16
[2023-02-22 08:50] VITALS: BMI 20.8
[2023-02-22] MEDS: Creon 24,000 unit DR Capsule 3 CAP PO ×3 (08:55→18:07)
[2023-02-22] MEDS: Vitamin B Comp W-C Capsule 1 CAP PO ×2 (08:56→18:04)
[2023-02-22] MEDS: Potassium Chloride Oral Tablet 10 MEQ PO (08:56)
[2023-02-22] MEDS: Amox/Clavulanate 875 MG Tablet PO ×2 (08:57→18:05)
[2023-02-22] MEDS: Amiodarone 200 MG Tablet 100 MG PO ×2 (08:57→18:08)
[2023-02-22] MEDS: Ascorbic Acid 500 MG Tablet PO (08:58)
[2023-02-22] MEDS: Ensure Plus High Protein 120 ML LIQUID PO ×3 (09:02→18:13)
[2023-02-22] MEDS: Baclofen 10 MG Tablet 5 MG PO (09:11)
--- NOTE | 2023-02-22 09:21 | PHA.CONS_ITS ---
TCU RX Drug Regimen Review Subjective: TCU Admission. RW 82 YOM presented to [facility] ED on 02/19 with n/v. Hospitalized for intractable low back pain, complicated by acute kidney injury. Admitted to TCU Admitted to TCU on 02/21 with debility, here for rehab and strengthening. Objective: Allergies diclofenac Allergy (Verified 02/19/23 19:50) rash prednisone Allergy (Verified 02/19/23 19:50) Rash Current Medications Generic Name Dose Route Start Last Admin Trade Name Freq PRN Reason Stop Dose Admin Acetaminophen 1,000 mg 02/21/23 20:34 Acetaminophen 500 Mg Tablet PO Q6H PRN Pain Score 1-3 Amiodarone HCl 100 mg 02/21/23 17:00 02/22/23 08:57 Amiodarone 200 Mg Tablet PO 100 mg BIDCM ILEANA Administration Amoxicillin/Clavulanate Potassium 875 mg 02/21/23 17:00 02/22/23 08:57 Amox/Clavulanate 875 Mg Tablet PO 02/26/23 08:01 875 mg BIDCM ILEANA Administration Ascorbic Acid 500 mg 02/22/23 08:00 02/22/23 08:58 Ascorbic Acid 500 Mg Tablet PO 500 mg BREAKFAST ILEANA Administration Baclofen 5 mg 02/21/23 16:16 02/22/23 09:11 Baclofen 10 Mg Tablet PO 5 mg TID PRN PRN Administration muscle spasms Cholecalciferol 25 mcg 02/22/23 06:00 02/22/23 06:25 Cholecalciferol (Vit D3) 25 Mcg Tablet (1,000 Units) PO 25 mcg DAILY ILEANA Administration Diltiazem HCl 120 mg 02/21/23 18:00 02/22/23 04:16 Diltiazem Cd 120 Mg Capsule PO 120 mg BID ILEANA Administration Famotidine 20 mg 02/22/23 06:00 02/22/23 06:25 Famotidine 20 Mg Tablet PO 20 mg DAILY ILEANA Administration Finasteride 5 mg 02/22/23 06:00 02/22/23 06:25 Finasteride 5 Mg Tablet PO 5 mg DAILY ILEANA Administration Furosemide 40 mg 02/21/23 15:39 Furosemide 40 Mg Tablet PO BID PRN PRN Weight Gain Hydromorphone HCl 1 - 2 mg 02/21/23 20:34 02/22/23 04:15 Hydromorphone 2 Mg Tablet PO 2 mg Q6H PRN Administration Pain Score 4-10 Isosorbide Mononitrate 30 mg 02/21/23 18:00 02/22/23 04:15 Isosorbide Mononitrate 30 Mg Tablet PO 30 mg BID ILEANA Administration Levothyroxine Sodium 50 mcg 02/22/23 06:00 02/22/23 06:25 Levothyroxine 25 Mcg Tablet PO 50 mcg DAILY ILEANA Administration Lidocaine 1 patch 02/22/23 06:00 02/22/23 09:01 Lidocaine 5% Patch TOPICAL Not Given DAILY [facility] Protocol Loratadine 10 mg 02/22/23 06:00 02/22/23 06:25 Loratadine 10 Mg Tablet PO 10 mg DAILY [facility] Administration Metoclopramide HCl 2.5 - 5 mg 02/21/23 15:39 Metoclopramide 5 Mg Tablet PO Q6H PRN PRN GI Pain Metoprolol Tartrate 12.5 mg 02/21/23 18:00 02/22/23 04:16 Metoprolol Tartrate 25 Mg Tablet PO 12.5 mg BID [facility] Administration Multivitamins 1 tablet 02/22/23 12:00 Multivitamins,Therapeutic Tablet PO LUNCH [facility] Multivitamins 1 cap 02/21/23 17:00 02/22/23 08:56 Vitamin B Comp W-C Capsule PO 1 cap BIDCM [facility] Administration Nutritional Formula (Lactose Free) 120 ml 02/21/23 17:45 02/22/23 09:02 Ensure Plus High Protein 120 Ml Liquid PO 120 ml TIDCM [facility] Administration Ondansetron HCl 4 mg 02/21/23 16:19 Ondansetron Odt 4 Mg Tablet PO Q8H PRN PRN Nausea And Vomiting Pancrelipase 3 cap 02/21/23 17:45 02/22/23 08:55 Creon [address] Capsule PO 3 cap TIDCM [facility] Administration Pantoprazole Sodium 40 mg 02/22/23 06:00 02/22/23 06:25 Pantoprazole Sodium 40 Mg Tablet PO 40 mg DAILY [facility] Administration Polyethylene Glycol 17 gm 02/22/23 06:00 02/22/23 06:26 Polyethylene Glycol 3350 17 Gm Packet PO 17 gm DAILY ILEANA Administration Potassium Chloride 10 meq 02/22/23 08:00 02/22/23 08:56 Potassium Chloride Oral Tablet 10 Meq PO 10 meq BREAKFAST [facility] Administration Senna 1 tablet 02/21/23 16:20 Senna Tablet PO BID PRN PRN Constipation Sucralfate 1 gm 02/22/23 07:00 02/22/23 06:24 Sucralfate 1 Gm Tablet PO 1 gm TID@0700,1100,1600 [facility] Administration Tamsulosin HCl 0.4 mg 02/21/23 22:00 02/21/23 20:01 Tamsulosin Hcl 0.4 Mg Capsule PO 0.4 mg QHS [facility] Administration Tuberculin PPD 0.1 ml 02/22/23 10:00 Tuberculin,Purif.Prot.Deriv. 50 Tu/Ml Vial ID 02/22/23 10:01 X1 ONE Tuberculin PPD 0.1 ml 03/01/23 10:00 Tuberculin,Purif.Prot.Deriv. 50 Tu/Ml Vial ID 03/01/23 10:01 X1 ONE Warfarin Sodium 2 mg 02/22/23 17:00 Jantoven 2 Mg Tablet PO [id number] [facility] Warfarin Sodium 4 mg 02/21/23 17:00 02/21/23 18:22 Warfarin 4 Mg Tablet PO 4 mg [id number] [facility] Administration Problem List (Last Reviewed 02/21/23 @ 20:[address] Marcus Samuel MD) Iron deficiency anemia (Acute) GERD (gastroesophageal reflux disease) (Acute) Atrial fibrillation (Acute) Coronary artery disease (Acute) Osteoporosis (Acute) BPH (benign prostatic hyperplasia) (Acute) Chronic kidney disease, stage 3b (Acute) Acute kidney injury (Acute) Intractable low back pain (Acute) Debility (Acute) Vital Signs Temp Pulse Resp BP Pulse Ox O2 Del Method 97.7 F L 87 16 144/91 H 97 Room Air 02/21/23 14:48 02/22/23 04:16 02/21/23 14:48 02/22/23 04:16 02/21/23 14:48 02/21/23 16:05 Oxygen Delivery Method Room Air Weight: 62.23 kg Body Mass Index (BMI) 20.8 Sodium 139 mmol/L (136-145) 02/22/23 05:07 Potassium 3.9 mmol/L (3.5-5.1) 02/22/23 05:07 Chloride 106 mmol/L (98-107) 02/22/23 05:07 Carbon Dioxide 27.0 mmol/L (21.0-32.0) 02/22/23 05:07 Anion Gap 6 (5-15) 02/22/23 05:07 BUN 28 mg/dL (7-18) H 02/22/23 05:07 Creatinine 1.49 mg/dL (0.70-1.30) H 02/22/23 05:07 Est GFR (MDRD) Af Amer 58 mL/min (>60) L 02/22/23 05:07 Est GFR (MDRD) Non-Af 48 mL/min (>60) L 02/22/23 05:07 BUN/Creatinine Ratio 18.8 RATIO (10-20) 02/22/23 05:07 Glucose 95 mg/dL (74-106) 02/22/23 05:07 Assessment/Plan: 1. Pain: acetaminophen 1000mg PO Q6H PRN pain (1-3), hydromorphone 1-2mg PO Q6H PRN pain (4-10), Lidoderm patch TD daily. Monitor: pain levels, constipation, oversedation, prn medication use, respiratory depression. To date, resident has received two doses of hydromorphone on 02/22 (2mg for back/buttock pain rating 8/10). 2. Bowel: Miralax 17gm PO daily and senna 1 tablet PO BID PRN constipation. Monitor: increased or decreased constipation or diarrhea, prn medication use. To date, resident has not received a dose of PRN medication. No documented bowel movements. 3. Atrial fibrillation/Coronary artery disease: metoprolol tartrate 12.5mg PO BID, diltiazem CD 120mg PO BID, amiodarone 100mg PO BIDCM, warfarin 2mg/4mg PO alternating, isosorbide mononitrate 30mg PO BID. Monitor: HR (87), BP (113-144/68-91), headache, increased bleeding and bruising, INR (last 1.6), dizziness, sodium (last 139mmol/L) and potassium (last 3.9mmol/L). 4. Diverticulitis: Augmentin 875mg PO BID thru 02/26/2023. Monitor: s/s of infection, diarrhea and renal function. 5. Muscle spasm: baclofen 5mg PO TID PRN muscle spasms. Monitor: muscle weakness, frequency of spasms, hypotonia, prn medication use. To date, resident has received one dose of PRN medication on 02/22 6. GERD: famotidine 20mg PO daily, pantoprazole 40mg PO daily and sucralfate 1gm PO TID. Monitor: severity of symptoms, headache, dizziness, nausea, stomach upset, diarrhea (BEERs medication) and renal function. 7. BPH: finasteride 5mg PO daily and tamsulosin 0.4mg PO QHS. Monitor: back everette n, blurred vision, drowsiness, BP, S/S of BPH. 8. Edema: furosemide 40mg PO BID PRN weight gain 3 pounds or more. Monitor: I/O, potassium levels (3.9mmol/L), PRN medication use. To date, resident has not received a dose of PRN medication 9. Hypothyroidism: levothyroxine 50mcg PO daily. Monitor: thyroid levels (TSH 4.02, Free T3 2 from 12/19, all others WNL) and S/S of hypo/hyperthyroidism. 10. Allergic rhinitis: loratadine 10mg PO daily. Monitor: headache, drowsiness, fatigue, S/S of allergies and renal function. 11. Nausea: metoclopramide 2.5mg - 5mg PO Q6H PRN GI pain, ondansetron ODT 4mg Q8H PRN nausea/vomiting. Monitor: diarrhea, I/O, prn medication use. To date, resident has not received a dose of either PRN medication. 12. Vitamin C/B/D deficiencies and overall nutrition: ascorbic acid 500mg PO daily, MVI 1 tablet PO daily, Vitamin B complex 1 capsule PO BIDCM, cholecalciferol 25mcg PO daily. Please continue to monitor vitamin D levels (last 12/22/22). 13. Exocrine pancreatic insufficiency: Creon 24,000units 3C PO TIDCM. Please continue to monitor for abdominal pain. 14. Hypokalemia: potassium chloride 10mEq PO breakfast. Please continue to monitor potassium levels. Assessment/Plan for indications treated with psychotropic medications:None Medical chart and medication regimen reviewed. The following medication irregularities or issues were identified: None Date of Note:: 02/22/23
[2023-02-22] MEDS: Ondansetron ODT 4 MG Tablet PO (09:41)
--- NOTE | 2023-02-22 10:08 | NURSING ---
Called Dr. Richardson's office, updated them that patient received dose of coumadin yesterday evening. Per office, Dr Richardson will cancel injection for today. They will call back about re-scheduling.
--- NOTE | 2023-02-22 10:35 | CASEMGMT ---
Social Work Met with patient to complete initial assessment. Pt known to this worker from previous stay. Confirmed no changes to prior assessment, code status (full code) or MOLST form. Educated to Medicare benefit. Encouraged to contact secondary insurance to ensure copay coverage. Pt's goal is to return home alone with 2 KAILEY once pain is controlled and can return to PLOF. SW to continue to follow for DC planning. NAUN BeckwithW
[2023-02-22] MEDS: Tuberculin,Purif.prot.deriv. 50 TU/ML Vial 0.1 ML ID (11:23)
[2023-02-22] MEDS: Multivitamins,Therapeutic Tablet 1 TABLET PO (11:26)
[2023-02-22 14:00] VITALS: BP 117/72; PULSE 79; RESP 16; TEMP 36.4; O2SAT 92
[2023-02-22 18:05] VITALS: BP 117/79; PULSE 72
[2023-02-22] MEDS: Senna Tablet 1 TABLET PO (18:07)
--- NOTE | 2023-02-22 18:58 | NURSING ---
Dr. Richardson up to see pt this evening. N.O. to hold Coumadin and recheck INR tomorrow. If INR is within normal range he will do an Injection on 02/23/23. If INR is still high he will do Injection on 02/24/23.
[2023-02-22] MEDS: Tamsulosin HCl 0.4 MG Capsule PO (20:16)
[2023-02-23 07:58] LABS: International Normalized Ratio 1.5; Prothrombin Time (Protime)PT. 18.2 SECONDS (11.7-14.9)
--- NOTE | 2023-02-23 09:37 | NURSING ---
Recieved call from Dr Richardson's office noting that he will not be doing pain injections today and anticipate it will be on Tuesday. She noted will call with new orders for that day
[2023-02-23] MEDS: Ensure Plus High Protein 120 ML LIQUID PO ×3 (10:11→17:58)
[2023-02-23] MEDS: Amiodarone 200 MG Tablet 100 MG PO ×2 (10:12→16:55)
[2023-02-23] MEDS: Amox/Clavulanate 875 MG Tablet PO ×2 (10:13→16:56)
[2023-02-23] MEDS: Lidocaine 5% Patch 1 PATCH TOPICAL (10:13)
[2023-02-23] MEDS: Vitamin B Comp W-C Capsule 1 CAP PO ×2 (10:13→16:57)
[2023-02-23] MEDS: Potassium Chloride Oral Tablet 10 MEQ PO (10:15)
[2023-02-23] MEDS: Ascorbic Acid 500 MG Tablet PO (10:15)
[2023-02-23] MEDS: Sucralfate 1 GM Tablet PO ×2 (10:16→16:55)
[2023-02-23] MEDS: Ondansetron ODT 4 MG Tablet PO (10:29)
[2023-02-23] MEDS: Creon 24,000 unit DR Capsule 3 CAP PO ×3 (10:33→17:58)
[2023-02-23] MEDS: Multivitamins,Therapeutic Tablet 1 TABLET PO (11:38)
--- NOTE | 2023-02-23 13:48 | NURSING ---
Environmental Sampler Note; Activity Asset: Oscar Mcgregor is independent in his choice of daily activities. He will watch tv, read and visit w/family friends and his dog. He was informed of the pet policy and that his pet may visits. He has stated he will welcome visit from the intelligence chief and therapy and he is not interested in group activities at this item. Staff will continue to remind him of daily activities and respect his right to say No.
[2023-02-23 14:00] VITALS: BP 133/75; PULSE 85; RESP 14; TEMP 36.6; O2SAT 92
[2023-02-23] MEDS: HYDROmorphone 2 MG TABLET PO (15:51)
[2023-02-23 17:59] VITALS: PULSE 85
[2023-02-23] MEDS: Isosorbide Mononitrate 30 MG Tablet PO (17:59)
[2023-02-23] MEDS: Metoprolol Tartrate 25 MG Tablet 12.5 MG PO (17:59)
[2023-02-23] MEDS: dilTIAZem CD 120 MG Capsule PO (18:00)
[2023-02-23] MEDS: Tamsulosin HCl 0.4 MG Capsule PO (21:40)
[2023-02-23 22:15] VITALS: PULSE 91; RESP 16; O2SAT 94
[2023-02-24] MEDS: HYDROmorphone 2 MG TABLET PO ×4 (01:59→23:57)
[2023-02-24] MEDS: dilTIAZem CD 120 MG Capsule PO ×2 (05:25→17:52)
[2023-02-24] MEDS: Loratadine 10 MG Tablet PO (05:25)
[2023-02-24] MEDS: Isosorbide Mononitrate 30 MG Tablet PO ×2 (05:26→17:51)
[2023-02-24] MEDS: Lidocaine 5% Patch 1 PATCH TOPICAL (05:26)
[2023-02-24 05:27] VITALS: BP 142/86; PULSE 91
[2023-02-24] MEDS: Metoprolol Tartrate 25 MG Tablet 12.5 MG PO ×2 (05:27→17:52)
[2023-02-24] MEDS: Pantoprazole Sodium 40 MG Tablet PO (05:30)
[2023-02-24] MEDS: Famotidine 20 MG Tablet PO (05:30)
[2023-02-24] MEDS: Finasteride 5 MG Tablet PO (05:30)
[2023-02-24] MEDS: Levothyroxine 25 MCG TABLET 50 MCG PO (05:30)
[2023-02-24] MEDS: Cholecalciferol (VIT D3) 25 MCG TABLET (1,000 UNITS) PO (05:31)
[2023-02-24] MEDS: Creon 24,000 unit DR Capsule 3 CAP PO ×3 (08:12→17:52)
[2023-02-24] MEDS: Amox/Clavulanate 875 MG Tablet PO ×2 (08:12→17:52)
[2023-02-24] MEDS: Vitamin B Comp W-C Capsule 1 CAP PO ×2 (08:12→17:54)
[2023-02-24] MEDS: Sucralfate 1 GM Tablet PO ×3 (08:13→16:30)
[2023-02-24] MEDS: Amiodarone 200 MG Tablet 100 MG PO ×2 (08:13→17:54)
[2023-02-24] MEDS: Potassium Chloride Oral Tablet 10 MEQ PO (08:13)
[2023-02-24] MEDS: Ascorbic Acid 500 MG Tablet PO (08:14)
[2023-02-24] MEDS: Ensure Plus High Protein 120 ML LIQUID PO ×2 (08:19→11:51)
[2023-02-24] MEDS: Multivitamins,Therapeutic Tablet 1 TABLET PO (11:51)
[2023-02-24 13:39] VITALS: BP 126/77; PULSE 92; RESP 16; TEMP 36.3; O2SAT 92
[2023-02-24 17:52] VITALS: PULSE 92
[2023-02-24] MEDS: Senna/Docusate Sodium 1 Tablet 2 TABLET PO (17:52)
[2023-02-24] MEDS: Tamsulosin HCl 0.4 MG Capsule PO (20:25)
[2023-02-25 06:18] LABS: International Normalized Ratio 1.3
--- NOTE | 2023-02-25 11:35 | MDS.RN ---
Pain interview for MDS completed.
--- NOTE | 2023-02-25 11:42 | NURSING ---
Called Dr. Richardson office at 0800, nurse stated that provider was not in office yet and did not have the schedule worked out and would call back. Dr. Richardson's office called again at 0945, nurse stated that injections would be done today but unsure of time. Office called again at 1120, office stated that they are waiting for surgery scheduling to call and confirm time for injections, did state that they will be done today. Pt updated.
--- NOTE | 2023-02-25 11:55 | RAD_ITS ---
PROCEDURE: Bilateral L4-S1 facet joint block. DATE OF EXAMINATION: February 25, 2023. INDICATION: Male, 82 years old. Chronic low back pain. FLUOROSCOPY TIME (if supplied): (5 seconds) minutes/seconds. 0.97 mGy. 6 images were obtained. RAD/Fluor Guidance for Spine Inj IMPRESSION: Intraoperative imaging provided for bilateral L4-S1 facet joint block. Electronically Signed: Wilfred Milligan MD at 13:26 EDT ,
--- NOTE | 2023-02-25 12:06 | NURSING ---
Pt taken down in bed by surgical staff at 1158
--- NOTE | 2023-02-25 14:58 | NURSING ---
Pt returned to floor at 1430 following a lumbar injection, no new orders received.
[2023-02-25 15:20] VITALS: BP 152/86; PULSE 86; RESP 14; TEMP 36.8; O2SAT 94
[2023-02-25] MEDS: Sucralfate 1 GM Tablet PO (15:40)
[2023-02-25] MEDS: Amiodarone 200 MG Tablet 100 MG PO (18:07)
[2023-02-25] MEDS: Ensure Plus High Protein 120 ML LIQUID PO (18:07)
[2023-02-25 18:08] VITALS: BP 147/84; PULSE 91
[2023-02-25] MEDS: Amox/Clavulanate 875 MG Tablet PO (18:08)
[2023-02-25] MEDS: Senna/Docusate Sodium 1 Tablet 2 TABLET PO (18:08)
[2023-02-25] MEDS: Isosorbide Mononitrate 30 MG Tablet PO (18:08)
[2023-02-25] MEDS: dilTIAZem CD 120 MG Capsule PO (18:08)
[2023-02-25] MEDS: Metoprolol Tartrate 25 MG Tablet 12.5 MG PO (18:08)
[2023-02-25] MEDS: Creon 24,000 unit DR Capsule 3 CAP PO (18:09)
[2023-02-25] MEDS: Vitamin B Comp W-C Capsule 1 CAP PO (18:09)
[2023-02-25] MEDS: Tamsulosin HCl 0.4 MG Capsule PO (20:56)
[2023-02-25 21:00] VITALS: O2SAT 95
[2023-02-26 06:02] VITALS: BP 119/73; PULSE 85
[2023-02-26] MEDS: Cholecalciferol (VIT D3) 25 MCG TABLET (1,000 UNITS) PO (06:03)
[2023-02-26] MEDS: Levothyroxine 25 MCG TABLET 50 MCG PO (06:03)
[2023-02-26 06:04] VITALS: BP 119/73; PULSE 85
[2023-02-26] MEDS: Isosorbide Mononitrate 30 MG Tablet PO ×2 (06:04→18:09)
[2023-02-26] MEDS: Pantoprazole Sodium 40 MG Tablet PO (06:04)
[2023-02-26] MEDS: Loratadine 10 MG Tablet PO (06:04)
[2023-02-26] MEDS: Metoprolol Tartrate 25 MG Tablet 12.5 MG PO ×2 (06:04→18:07)
[2023-02-26] MEDS: Finasteride 5 MG Tablet PO (06:05)
[2023-02-26] MEDS: Famotidine 20 MG Tablet PO (06:05)
[2023-02-26] MEDS: dilTIAZem CD 120 MG Capsule PO ×2 (06:05→18:07)
[2023-02-26] MEDS: Sucralfate 1 GM Tablet PO ×3 (06:08→16:27)
[2023-02-26] MEDS: Potassium Chloride Oral Tablet 10 MEQ PO (08:30)
[2023-02-26] MEDS: Creon 24,000 unit DR Capsule 3 CAP PO ×3 (08:31→18:07)
[2023-02-26] MEDS: Ascorbic Acid 500 MG Tablet PO (08:32)
[2023-02-26] MEDS: Vitamin B Comp W-C Capsule 1 CAP PO ×2 (08:32→16:28)
[2023-02-26] MEDS: Amiodarone 200 MG Tablet 100 MG PO ×2 (08:33→16:30)
[2023-02-26] MEDS: Amox/Clavulanate 875 MG Tablet PO (08:34)
[2023-02-26] MEDS: Ensure Plus High Protein 120 ML LIQUID PO ×2 (08:39→18:07)
[2023-02-26] MEDS: Lidocaine 5% Patch 1 PATCH TOPICAL (08:44)
[2023-02-26] MEDS: Multivitamins,Therapeutic Tablet 1 TABLET PO (12:24)
[2023-02-26 13:44] VITALS: BP 125/73; PULSE 89; RESP 16; TEMP 36.3; O2SAT 97
[2023-02-26] MEDS: HYDROmorphone 2 MG TABLET PO (14:10)
[2023-02-26 18:07] VITALS: PULSE 100
[2023-02-26] MEDS: Tamsulosin HCl 0.4 MG Capsule PO (21:09)
[2023-02-26] MEDS: Baclofen 10 MG Tablet 5 MG PO (21:15)
[2023-02-27] MEDS: Levothyroxine 25 MCG TABLET 50 MCG PO (05:21)
[2023-02-27] MEDS: Cholecalciferol (VIT D3) 25 MCG TABLET (1,000 UNITS) PO (05:21)
[2023-02-27] MEDS: Pantoprazole Sodium 40 MG Tablet PO (05:21)
[2023-02-27] MEDS: Famotidine 20 MG Tablet PO (05:21)
[2023-02-27 05:22] VITALS: BP 137/91; PULSE 91
[2023-02-27] MEDS: Isosorbide Mononitrate 30 MG Tablet PO ×2 (05:22→17:55)
[2023-02-27] MEDS: dilTIAZem CD 120 MG Capsule PO ×2 (05:22→17:55)
[2023-02-27] MEDS: Finasteride 5 MG Tablet PO (05:22)
[2023-02-27] MEDS: Loratadine 10 MG Tablet PO (05:22)
[2023-02-27] MEDS: Metoprolol Tartrate 25 MG Tablet 12.5 MG PO ×2 (05:22→17:55)
[2023-02-27] MEDS: Sucralfate 1 GM Tablet PO ×3 (06:26→16:13)
[2023-02-27] MEDS: Creon 24,000 unit DR Capsule 3 CAP PO ×3 (08:12→17:55)
[2023-02-27] MEDS: Vitamin B Comp W-C Capsule 1 CAP PO ×2 (08:12→16:13)
[2023-02-27] MEDS: Ensure Plus High Protein 120 ML LIQUID PO ×3 (08:12→17:55)
[2023-02-27] MEDS: Amiodarone 200 MG Tablet 100 MG PO ×2 (08:12→16:13)
[2023-02-27] MEDS: Ascorbic Acid 500 MG Tablet PO (08:13)
[2023-02-27] MEDS: Potassium Chloride Oral Tablet 10 MEQ PO (08:13)
[2023-02-27] MEDS: Lidocaine 5% Patch 1 PATCH TOPICAL (09:25)
[2023-02-27] MEDS: Multivitamins,Therapeutic Tablet 1 TABLET PO (11:11)
[2023-02-27 14:00] VITALS: BP 115/71; PULSE 84; RESP 14; TEMP 36.9; O2SAT 95
[2023-02-27] MEDS: Jantoven 2 MG Tablet PO (16:19)
[2023-02-27] MEDS: HYDROmorphone 2 MG TABLET PO (16:19)
[2023-02-27 17:55] VITALS: PULSE 84
[2023-02-27] MEDS: Tamsulosin HCl 0.4 MG Capsule PO (20:49)
[2023-02-27 21:00] VITALS: O2SAT 96
[2023-02-28] MEDS: HYDROmorphone 2 MG TABLET PO ×3 (00:12→23:58)
[2023-02-28 05:51] LABS: International Normalized Ratio 1.2; Prothrombin Time (Protime)PT. 15.5 SECONDS (11.7-14.9)
[2023-02-28 06:00] VITALS: BMI 21.0
[2023-02-28] MEDS: Sucralfate 1 GM Tablet PO ×3 (06:07→16:09)
[2023-02-28] MEDS: Levothyroxine 25 MCG TABLET 50 MCG PO (06:07)
[2023-02-28 06:08] VITALS: BP 135/83; PULSE 91
[2023-02-28] MEDS: Isosorbide Mononitrate 30 MG Tablet PO ×2 (06:08→17:19)
[2023-02-28] MEDS: Finasteride 5 MG Tablet PO (06:08)
[2023-02-28] MEDS: Famotidine 20 MG Tablet PO (06:08)
[2023-02-28] MEDS: Pantoprazole Sodium 40 MG Tablet PO (06:08)
[2023-02-28] MEDS: Cholecalciferol (VIT D3) 25 MCG TABLET (1,000 UNITS) PO (06:08)
[2023-02-28] MEDS: Metoprolol Tartrate 25 MG Tablet 12.5 MG PO ×2 (06:08→17:14)
[2023-02-28] MEDS: Loratadine 10 MG Tablet PO (06:09)
[2023-02-28] MEDS: dilTIAZem CD 120 MG Capsule PO ×2 (06:09→17:14)
--- NOTE | 2023-02-28 08:23 | NURSING ---
Contract Associate Manager Note; MDS Complete
[2023-02-28] MEDS: Creon 24,000 unit DR Capsule 3 CAP PO ×3 (08:59→17:17)
[2023-02-28] MEDS: Vitamin B Comp W-C Capsule 1 CAP PO ×2 (08:59→17:18)
[2023-02-28] MEDS: Potassium Chloride Oral Tablet 10 MEQ PO (08:59)
[2023-02-28] MEDS: Ensure Plus High Protein 120 ML LIQUID PO ×3 (08:59→17:21)
[2023-02-28] MEDS: Ascorbic Acid 500 MG Tablet PO (08:59)
[2023-02-28] MEDS: Lidocaine 5% Patch 1 PATCH TOPICAL (09:00)
[2023-02-28] MEDS: Amiodarone 200 MG Tablet 100 MG PO ×2 (09:00→17:17)
[2023-02-28] MEDS: Multivitamins,Therapeutic Tablet 1 TABLET PO (11:44)
--- NOTE | 2023-02-28 12:00 | CASEMGMT ---
Social Work Brief interview for mental status (BIMS) and resident mood assessment (PHQ-9) completed on this day. BIMS score . PHQ-9 score 11/22. Serina MAGALLON, KARSONS
--- NOTE | 2023-02-28 12:39 | NURSING ---
Offered latest covid booster, education about vaccine provided. Patient refuses at this time.
[2023-02-28 14:00] VITALS: BP 124/74; PULSE 92; RESP 16; TEMP 36.8; O2SAT 94
[2023-02-28 17:14] VITALS: PULSE 92
[2023-02-28] MEDS: Senna/Docusate Sodium 1 Tablet 2 TABLET PO (17:14)
[2023-02-28] MEDS: Tamsulosin HCl 0.4 MG Capsule PO (22:09)
[2023-03-01] MEDS: Polyethylene Glycol 3350 17 GM PACKET PO (05:52)
[2023-03-01] MEDS: Isosorbide Mononitrate 30 MG Tablet PO ×2 (05:52→17:54)
[2023-03-01] MEDS: Loratadine 10 MG Tablet PO (05:52)
[2023-03-01] MEDS: Cholecalciferol (VIT D3) 25 MCG TABLET (1,000 UNITS) PO (05:52)
[2023-03-01] MEDS: Levothyroxine 25 MCG TABLET 50 MCG PO (05:52)
[2023-03-01 05:53] VITALS: BP 134/81; PULSE 89
[2023-03-01] MEDS: Metoprolol Tartrate 25 MG Tablet 12.5 MG PO ×2 (05:53→17:53)
[2023-03-01] MEDS: dilTIAZem CD 120 MG Capsule PO ×2 (05:54→17:54)
[2023-03-01] MEDS: Famotidine 20 MG Tablet PO (05:54)
[2023-03-01] MEDS: Finasteride 5 MG Tablet PO (05:54)
[2023-03-01 06:00] VITALS: BMI 21.1
[2023-03-01 06:10] LABS: Absolute Lymphocyte Count 0.35 X10^3/uL (0.83-4.51); Absolute Neutrophil Count 14.5 X10^3/uL (2.0-7.7); Basophil# 0.02 X10^3/uL; Basophil% 0.1 % (0-1); Eosinophil# 0.01 X10^3/uL; Eosinophils% 0.1 % (0-5); Hematocrit 34.4 % (40-54); Hemoglobin 11.7 g/dL (13.0-16.5); Lymphocyte # 0.35 X10^3/ul (0.83-4.51); Lymphocyte % 2.2 % (19-41); Mean Corpuscular Hgb 37.1 pg (27.0-32.0); Mean Corpuscular Volume 109.2 fL (80-94); Mean Platelet Vol. 9.6 fl (6.2-12.0); Monocyte# 0.83 X10^3/uL; Monocyte% 5.2 % (0-10); NRBC Flagged by Analyzer 0 % (0-5); Neutrophil # 14.49 X10^3/uL (2.7-7.7); Neutrophil % 91.3 % (47-70); POSITIVE DIFFERENTIAL YES; Platelet Count 297 K/mm3 (150-450); RBC Distribution Width CV 15.7 % (11.6-14.6); RBC Distribution Width SD 63.1 fl (35.1-43.9); Red Blood Count 3.15 M/mm3 (4.6-6.2); White Blood Count 15.9 K/mm3 (4.4-11.0)
[2023-03-01 06:42] LABS: Anion Gap 5 (5-15); BUN 45 mg/dL (7-18); Calcium,Total 8.6 mg/dL (8.5-10.1); Chloride 109 mmol/L (98-107); Creatinine, Serum 1.45 mg/dL (0.70-1.30); EST Glomerular Filtration Rate 50 mL/min (>60); Est Glom Filt Rate - Afr Amer 60 mL/min (>60); Estimated Creatinine Clearance 35.49 ml/min; Glucose 100 mg/dL (74-106); Potassium 4.6 mmol/L (3.5-5.1); Sodium Level 138 mmol/L (136-145)
[2023-03-01 07:07] LABS: Differential Indicated SCAN CRITERIA MET
[2023-03-01] MEDS: Potassium Chloride Oral Tablet 10 MEQ PO (08:08)
[2023-03-01] MEDS: Ascorbic Acid 500 MG Tablet PO (08:08)
[2023-03-01] MEDS: Vitamin B Comp W-C Capsule 1 CAP PO ×2 (08:09→17:54)
[2023-03-01] MEDS: Creon 24,000 unit DR Capsule 3 CAP PO ×3 (08:09→17:53)
[2023-03-01] MEDS: Amiodarone 200 MG Tablet 100 MG PO ×2 (08:09→17:54)
[2023-03-01] MEDS: Pantoprazole Sodium 40 MG Tablet PO (08:10)
[2023-03-01] MEDS: Sucralfate 1 GM Tablet PO ×3 (08:10→15:44)
[2023-03-01] MEDS: Lidocaine 5% Patch 1 PATCH TOPICAL (08:11)
[2023-03-01] MEDS: Ensure Plus High Protein 120 ML LIQUID PO ×3 (08:15→17:59)
[2023-03-01] MEDS: Tuberculin,Purif.prot.deriv. 50 TU/ML Vial 0.1 ML ID (08:16)
[2023-03-01 09:14] LABS: Differential Comment SCANNED
--- NOTE | 2023-03-01 11:34 | PCM.PROGNOTE ---
Subjective Subjective Afebrile VSS Maintaining appropriate oxygen saturation on RA Oral intake is fair. Eating 50 to 74% of his meals. Fluid intake is also poor. Discussed with nursing - no problems that need addressed Reviewed the PT/OT/ST notes Medication list reviewed. INR was subtherapeutic yesterday. Warfarin was held for an epidural block on 02/25/2023 and was restarted on 02/27/2023. White blood cell count today is elevated at 15.9 which is up from 12.6 on 02/22/2023. It has been persistently elevated since 01/04/2023. Differential is markedly abnormal and he has 91% neutrophils now with 1.1% immature granulocytes. Globin is stable at 11.7. Platelets are within normal limits. Sodium is 138 and the potassium is 4.6. BUN is up to 45 from 28 on 02/22/2023 and the creatinine is stable at 1.45. He was treated for diverticulitis in mid-late January. LS spine XRAY within the past month shows stable treated compression fractures of L1, T12 and T10. There are nontreated compression fractures of L3, L4 and T11.....the T11 fracture was new between 01/29/2023 and 02/06/2023. There is severe demineralization. I reviewed a recent CT of the Lumbar spine. He is on a vitamin D supplement but, nothing to build bone. Last BMD was in 2019. Objective Data Objective Data Vital Signs: Vital Signs Temp Pulse Resp BP Pulse Ox O2 Del Method 98.3 F 89 16 134/81 H 94 Room Air 02/28/23 14:00 03/01/23 05:53 02/28/23 14:00 03/01/23 05:53 02/28/23 14:00 02/28/23 14:00 Oxygen Delivery Method Room Air Weight: 138 lb 7 oz Body Mass Index (BMI) 21.0 Intake & Output: Intake and Output for Last 24 Hours 02/27/23 02/28/23 03/01/23 23:59 23:59 23:59 Intake Total 840 / 840 780 / 780 360 / 360 Output Total 100 / 100 Balance 840 / 840 780 / 780 260 / 260 Medical Nutrition Assessment Dietitian: Malnutrition Criteria Met Start: 02/23/23 13:29 Freq: Status: Active Protocol: Document 02/28/23 13:08 [facility] (Rec: 02/28/23 13:08 [facility] [id number]) Nutrition Malnutrition Evidence of Malnutrition Exists Yes Malnutrition (severe): Acute Illness/Injury Evidenced By Suboptimal Energy Intake ( Severe),Weight Loss (Severe) Clinical Problem Acute Disease or Injury Related Malnutrition Etiology related to issues w/ pain making it difficult to consume adequate energy/protein Signs/Symptoms as evidenced by 6.7% unintended wt loss and po intake <50% of usual times past 1-2 months water [employer] - res now eating >50% at most meals Status Active Problem Recommendation Dietitian Recommendations/Changes Continue regular no added salt diet - meats cut to bite size pieces Continue 4 oz ensure plus high protein tid w/ medpass Monitor need for additional ONS pending continued po intake and wt trends Lab / Micro Data 03/01/23 05:15 03/01/23 05:15 Labs: Laboratory Results - last 24 hr 03/01/23 05:15: WBC 15.9 H, RBC 3.15 L, Hgb 11.7 L, Hct 34.4 L, MCV 109.2 H, MCH 37.1 H, MCHC 34.0, RDW Std Deviation 63.1 H, RDW Coeff of Pablo 15.7 H, Plt Count 297, MPV 9.6, Immature Gran % (Auto) 1.100 H, Neut % (Auto) 91.3 H, Lymph % (Auto) 2.2 L, [place] % (Auto) 5.2, Eos % (Auto) 0.1, Baso % (Auto) 0.1, Absolute Neuts (auto) 14.5 H, Absolute Lymphs (auto) 0.35 L, Nucleated RBC % 0, Differential Comment SCANNED, Sodium 138, Potassium 4.6, Chloride 109 H, Carbon Dioxide 24.0, Anion Gap 5, BUN 45 H, Creatinine 1.45 H, Estim Creat Clear Calc 35.49, Est GFR (MDRD) Af Amer 60, Est GFR (MDRD) Non-Af 50 L, BUN/Creatinine Ratio 31.0 H, Glucose 100, Calcium 8.6 Physical Exam HEENT normocephalic Mouth: dry mucous membranes Resp clear to auscultation bilaterally Cardio regular rate, regular rhythm and no gallops GI normal to inspection, nondistended, normoactive bowel sounds, soft to palpation and non-tender Extremity no calf tenderness General Extremity: Negative for edema Skin Rashes: no rashes Assessment & Plan Assessment/Plan (1) Osteoporosis: (2) Chronic kidney disease, stage 3b: (3) Intractable low back pain: (4) Debility: (5) Declining functional status: (6) Dehydration: (7) Generalized weakness: PLAN: Plan 1. Continue therapy 2. Check an ESR, CRP and procalcitonin. Patient was recently treated for diverticulitis 3. Check a vitamin D level. 4. If he is not getting a bisphosphonate or another medication to increase bone density he should be started on something by PCP 5. I see no hardware in the back. He has had 2 kyphoplasties. Worry about the increase in the back pain with a elevated WBC and marked L shift........vertebral osteo? Or exacerbation chronic back pain. Charges/Coding Visit Charges Inpatient E&M: 24463 SNF Subs L1
[2023-03-01] MEDS: Multivitamins,Therapeutic Tablet 1 TABLET PO (11:40)
[2023-03-01 11:58] LABS: Erythrocyte Sedimentation Rate 30 mm/hr (0-20)
[2023-03-01 12:09] LABS: Procalcitonin 0.08 ng/mL (0.00-0.09)
[2023-03-01] MEDS: Jantoven 2 MG Tablet PO ×2 (12:09→17:53)
[2023-03-01 14:00] VITALS: BP 141/71; PULSE 92; RESP 18; TEMP 36.9; O2SAT 97
[2023-03-01] MEDS: HYDROmorphone 2 MG TABLET PO ×2 (15:45→21:50)
[2023-03-01] MEDS: Bisacodyl 10 MG Suppository RC (15:45)
[2023-03-01 17:53] VITALS: PULSE 89
[2023-03-01] MEDS: Senna/Docusate Sodium 1 Tablet 2 TABLET PO (17:53)
--- NOTE | 2023-03-01 20:36 | NURSING ---
Pt requested Flomax be moved to 0800 as that is the time he takes it at home. Communication sent to pharmacy.
[2023-03-01 20:38] VITALS: O2SAT 95
[2023-03-02] MEDS: Ondansetron ODT 4 MG Tablet PO (01:05)
[2023-03-02 06:00] VITALS: BMI 21.1
[2023-03-02] MEDS: Senna/Docusate Sodium 1 Tablet 2 TABLET PO ×2 (06:20→17:10)
[2023-03-02] MEDS: Levothyroxine 25 MCG TABLET 50 MCG PO (06:20)
[2023-03-02] MEDS: Polyethylene Glycol 3350 17 GM PACKET PO (06:20)
[2023-03-02 06:21] VITALS: BP 150/99; PULSE 89
[2023-03-02] MEDS: Metoprolol Tartrate 25 MG Tablet 12.5 MG PO ×2 (06:21→17:10)
[2023-03-02] MEDS: Famotidine 20 MG Tablet PO (06:21)
[2023-03-02] MEDS: Finasteride 5 MG Tablet PO (06:21)
[2023-03-02] MEDS: Isosorbide Mononitrate 30 MG Tablet PO ×2 (06:21→17:12)
[2023-03-02] MEDS: Sucralfate 1 GM Tablet PO ×3 (06:21→17:12)
[2023-03-02] MEDS: Loratadine 10 MG Tablet PO (06:22)
[2023-03-02] MEDS: Cholecalciferol (VIT D3) 25 MCG TABLET (1,000 UNITS) PO (06:22)
[2023-03-02] MEDS: Pantoprazole Sodium 40 MG Tablet PO (06:22)
[2023-03-02] MEDS: dilTIAZem CD 120 MG Capsule PO ×2 (06:22→17:13)
[2023-03-02] MEDS: Creon 24,000 unit DR Capsule 3 CAP PO ×3 (07:54→17:11)
[2023-03-02] MEDS: Lidocaine 5% Patch 1 PATCH TOPICAL (07:54)
[2023-03-02] MEDS: Vitamin B Comp W-C Capsule 1 CAP PO ×2 (07:55→17:13)
[2023-03-02] MEDS: Ascorbic Acid 500 MG Tablet PO (07:55)
[2023-03-02] MEDS: Ensure Plus High Protein 120 ML LIQUID PO ×3 (07:55→17:10)
[2023-03-02] MEDS: Potassium Chloride Oral Tablet 10 MEQ PO (07:55)
[2023-03-02] MEDS: Amiodarone 200 MG Tablet 100 MG PO ×2 (07:55→17:13)
[2023-03-02 08:32] LABS: Vitamin D,25 Hydroxy 44.2 ng/mL
--- NOTE | 2023-03-02 10:14 | CASEMGMT ---
Social Work IDT met with patient and sister for care plan meeting. Discussed patient's progress in PT/OT/ST. Educated to Medicare benefit. Encouraged to contact secondary insurance to ensure copay coverage. Pt's DC goal is to return home alone and will need to return to PLOF to be safe at home. Offered additional resources for homegoing if needed. SW to continue to follow for DC planning. Roya Sarabia, BED OPERATOR PROFESSOR OF CHEMISTRY
[2023-03-02] MEDS: Multivitamins,Therapeutic Tablet 1 TABLET PO (11:33)
[2023-03-02] MEDS: HYDROmorphone 2 MG TABLET PO ×2 (11:34→20:27)
[2023-03-02 14:00] VITALS: BP 137/87; PULSE 90; RESP 16; TEMP 36.3; O2SAT 94
[2023-03-02 17:10] VITALS: PULSE 93
[2023-03-02] MEDS: Baclofen 10 MG Tablet 5 MG PO (20:27)
[2023-03-03 05:43] VITALS: BMI 20.9
[2023-03-03 06:04] LABS: International Normalized Ratio 1.5; Prothrombin Time (Protime)PT. 17.7 SECONDS (11.7-14.9)
[2023-03-03] MEDS: Polyethylene Glycol 3350 17 GM PACKET PO (06:08)
[2023-03-03] MEDS: Levothyroxine 25 MCG TABLET 50 MCG PO (06:13)
[2023-03-03] MEDS: Ondansetron ODT 4 MG Tablet PO (06:13)
[2023-03-03] MEDS: dilTIAZem CD 120 MG Capsule PO ×2 (06:14→18:44)
[2023-03-03] MEDS: Sucralfate 1 GM Tablet PO ×3 (06:14→17:00)
[2023-03-03] MEDS: Isosorbide Mononitrate 30 MG Tablet PO ×2 (06:14→18:42)
[2023-03-03] MEDS: Famotidine 20 MG Tablet PO (06:14)
[2023-03-03] MEDS: Loratadine 10 MG Tablet PO (06:14)
[2023-03-03] MEDS: Senna/Docusate Sodium 1 Tablet 2 TABLET PO ×2 (06:14→18:42)
[2023-03-03 06:15] VITALS: BP 148/95; PULSE 92
[2023-03-03] MEDS: Finasteride 5 MG Tablet PO (06:15)
[2023-03-03] MEDS: Pantoprazole Sodium 40 MG Tablet PO (06:15)
[2023-03-03] MEDS: Cholecalciferol (VIT D3) 25 MCG TABLET (1,000 UNITS) PO (06:15)
[2023-03-03] MEDS: Metoprolol Tartrate 25 MG Tablet 12.5 MG PO ×2 (06:15→18:44)
[2023-03-03] MEDS: Amiodarone 200 MG Tablet 100 MG PO ×2 (07:58→17:43)
[2023-03-03] MEDS: Vitamin B Comp W-C Capsule 1 CAP PO ×2 (07:58→17:00)
[2023-03-03] MEDS: Creon 24,000 unit DR Capsule 3 CAP PO ×3 (07:58→18:42)
[2023-03-03] MEDS: Potassium Chloride Oral Tablet 10 MEQ PO (07:59)
[2023-03-03] MEDS: Lidocaine 5% Patch 1 PATCH TOPICAL (07:59)
[2023-03-03] MEDS: Ascorbic Acid 500 MG Tablet PO (07:59)
[2023-03-03] MEDS: Tamsulosin HCl 0.4 MG Capsule PO (07:59)
[2023-03-03] MEDS: Ensure Plus High Protein 120 ML LIQUID PO ×3 (08:01→18:43)
[2023-03-03] MEDS: Multivitamins,Therapeutic Tablet 1 TABLET PO (11:53)
[2023-03-03 14:00] VITALS: BP 117/76; PULSE 89; RESP 16; TEMP 36.8; O2SAT 96
--- NOTE | 2023-03-03 14:56 | MDS.RN ---
Information for the mds was obtained from review of the clinical record, interview of resident, staff, and direct observation of resident's care.
[2023-03-03] MEDS: Jantoven 2 MG Tablet PO (18:42)
[2023-03-03 18:44] VITALS: PULSE 64
[2023-03-03 20:10] VITALS: PULSE 90; RESP 16; O2SAT 96
[2023-03-03] MEDS: HYDROmorphone 2 MG TABLET PO (20:50)
[2023-03-04 05:37] VITALS: BP 138/90; PULSE 90
[2023-03-04] MEDS: Metoprolol Tartrate 25 MG Tablet 12.5 MG PO ×2 (05:37→17:27)
[2023-03-04] MEDS: Finasteride 5 MG Tablet PO (05:38)
[2023-03-04] MEDS: Senna/Docusate Sodium 1 Tablet 2 TABLET PO ×2 (05:38→17:28)
[2023-03-04] MEDS: Levothyroxine 25 MCG TABLET 50 MCG PO (05:39)
[2023-03-04] MEDS: Loratadine 10 MG Tablet PO (05:39)
[2023-03-04] MEDS: Pantoprazole Sodium 40 MG Tablet PO (05:39)
[2023-03-04] MEDS: Famotidine 20 MG Tablet PO (05:39)
[2023-03-04] MEDS: Polyethylene Glycol 3350 17 GM PACKET PO (05:39)
[2023-03-04] MEDS: Cholecalciferol (VIT D3) 25 MCG TABLET (1,000 UNITS) PO (05:39)
[2023-03-04] MEDS: Isosorbide Mononitrate 30 MG Tablet PO ×2 (05:39→17:27)
[2023-03-04] MEDS: dilTIAZem CD 120 MG Capsule PO ×2 (05:43→17:26)
[2023-03-04 06:00] VITALS: BMI 20.8
[2023-03-04] MEDS: Sucralfate 1 GM Tablet PO ×3 (06:59→16:29)
[2023-03-04] MEDS: Vitamin B Comp W-C Capsule 1 CAP PO ×2 (08:44→17:25)
[2023-03-04] MEDS: Creon 24,000 unit DR Capsule 3 CAP PO ×3 (08:44→17:24)
[2023-03-04] MEDS: Amiodarone 200 MG Tablet 100 MG PO ×2 (08:45→17:25)
[2023-03-04] MEDS: Lidocaine 5% Patch 1 PATCH TOPICAL (08:46)
[2023-03-04] MEDS: Potassium Chloride Oral Tablet 10 MEQ PO (08:46)
[2023-03-04] MEDS: Tamsulosin HCl 0.4 MG Capsule PO (08:46)
[2023-03-04] MEDS: Ascorbic Acid 500 MG Tablet PO (08:47)
[2023-03-04] MEDS: Ensure Plus High Protein 120 ML LIQUID PO ×3 (08:49→17:24)
[2023-03-04 10:00] VITALS: PULSE 95; RESP 16
[2023-03-04] MEDS: HYDROmorphone 2 MG TABLET PO (11:40)
[2023-03-04] MEDS: Multivitamins,Therapeutic Tablet 1 TABLET PO (12:25)
[2023-03-04 14:00] VITALS: BP 139/80; PULSE 95; RESP 14; TEMP 36.4; O2SAT 96
[2023-03-04] MEDS: Baclofen 10 MG Tablet 5 MG PO (14:15)
[2023-03-04] MEDS: Acetaminophen 500 MG Tablet 1000 MG PO (14:16)
[2023-03-04 17:27] VITALS: PULSE 95
[2023-03-05] MEDS: Loratadine 10 MG Tablet PO (04:12)
[2023-03-05] MEDS: Cholecalciferol (VIT D3) 25 MCG TABLET (1,000 UNITS) PO (04:13)
[2023-03-05] MEDS: Levothyroxine 25 MCG TABLET 50 MCG PO (04:13)
[2023-03-05] MEDS: Senna/Docusate Sodium 1 Tablet 2 TABLET PO (04:13)
[2023-03-05] MEDS: Pantoprazole Sodium 40 MG Tablet PO (04:14)
[2023-03-05] MEDS: Finasteride 5 MG Tablet PO (04:14)
[2023-03-05] MEDS: Famotidine 20 MG Tablet PO (04:14)
[2023-03-05 04:15] VITALS: BP 152/89; PULSE 85
[2023-03-05] MEDS: Metoprolol Tartrate 25 MG Tablet 12.5 MG PO ×2 (04:15→17:44)
[2023-03-05] MEDS: Isosorbide Mononitrate 30 MG Tablet PO ×2 (04:17→17:42)
[2023-03-05] MEDS: dilTIAZem CD 120 MG Capsule PO ×2 (04:18→17:43)
[2023-03-05 04:57] VITALS: BMI 20.8
[2023-03-05] MEDS: Sucralfate 1 GM Tablet PO ×2 (07:00→11:14)
[2023-03-05] MEDS: Lidocaine 5% Patch 1 PATCH TOPICAL (08:23)
[2023-03-05] MEDS: Vitamin B Comp W-C Capsule 1 CAP PO ×2 (08:26→17:42)
[2023-03-05] MEDS: Creon 24,000 unit DR Capsule 3 CAP PO ×3 (08:26→17:43)
[2023-03-05] MEDS: Baclofen 10 MG Tablet 5 MG PO (08:26)
[2023-03-05] MEDS: Ascorbic Acid 500 MG Tablet PO (08:26)
[2023-03-05] MEDS: Tamsulosin HCl 0.4 MG Capsule PO (08:26)
[2023-03-05] MEDS: Acetaminophen 500 MG Tablet 1000 MG PO (08:26)
[2023-03-05] MEDS: Ensure Plus High Protein 120 ML LIQUID PO ×3 (08:27→17:42)
[2023-03-05] MEDS: Amiodarone 200 MG Tablet 100 MG PO ×2 (08:27→17:42)
[2023-03-05] MEDS: Potassium Chloride Oral Tablet 10 MEQ PO (10:37)
[2023-03-05] MEDS: Multivitamins,Therapeutic Tablet 1 TABLET PO (11:57)
[2023-03-05 14:00] VITALS: BP 143/80; PULSE 90; RESP 16; TEMP 36.3; O2SAT 98
[2023-03-05] MEDS: Jantoven 2 MG Tablet PO (17:43)
[2023-03-05 17:44] VITALS: BP 148/88; PULSE 97
[2023-03-05 20:10] VITALS: PULSE 104; RESP 16; O2SAT 94
[2023-03-05] MEDS: HYDROmorphone 2 MG TABLET PO (20:17)
[2023-03-06 06:00] VITALS: BMI 20.6
[2023-03-06] MEDS: dilTIAZem CD 120 MG Capsule PO ×2 (06:05→18:04)
[2023-03-06 06:09] VITALS: BP 137/82; PULSE 92
[2023-03-06] MEDS: Finasteride 5 MG Tablet PO (06:09)
[2023-03-06] MEDS: Cholecalciferol (VIT D3) 25 MCG TABLET (1,000 UNITS) PO (06:09)
[2023-03-06] MEDS: Pantoprazole Sodium 40 MG Tablet PO (06:09)
[2023-03-06] MEDS: Levothyroxine 25 MCG TABLET 50 MCG PO (06:09)
[2023-03-06] MEDS: Famotidine 20 MG Tablet PO (06:09)
[2023-03-06] MEDS: Metoprolol Tartrate 25 MG Tablet 12.5 MG PO ×2 (06:09→18:03)
[2023-03-06] MEDS: Isosorbide Mononitrate 30 MG Tablet PO ×2 (06:10→18:04)
[2023-03-06] MEDS: Loratadine 10 MG Tablet PO (06:10)
[2023-03-06 06:15] VITALS: BP 137/82; PULSE 92
[2023-03-06] MEDS: Lidocaine 5% Patch 1 PATCH TOPICAL (08:33)
[2023-03-06] MEDS: Sucralfate 1 GM Tablet PO ×3 (08:33→16:20)
[2023-03-06] MEDS: Creon 24,000 unit DR Capsule 3 CAP PO ×3 (08:33→18:04)
[2023-03-06] MEDS: Tamsulosin HCl 0.4 MG Capsule PO (08:34)
[2023-03-06] MEDS: Amiodarone 200 MG Tablet 100 MG PO ×2 (08:34→18:04)
[2023-03-06] MEDS: Potassium Chloride Oral Tablet 10 MEQ PO (08:34)
[2023-03-06] MEDS: Vitamin B Comp W-C Capsule 1 CAP PO ×2 (08:34→18:04)
[2023-03-06] MEDS: Ensure Plus High Protein 120 ML LIQUID PO ×3 (08:34→18:06)
[2023-03-06] MEDS: Ascorbic Acid 500 MG Tablet PO (08:34)
[2023-03-06] MEDS: Ondansetron ODT 4 MG Tablet PO (08:34)
[2023-03-06 09:33] VITALS: PULSE 94; RESP 18; O2SAT 94
[2023-03-06] MEDS: Baclofen 10 MG Tablet 5 MG PO (10:39)
[2023-03-06] MEDS: Acetaminophen 500 MG Tablet 1000 MG PO (10:39)
[2023-03-06] MEDS: HYDROmorphone 2 MG TABLET PO (12:03)
[2023-03-06] MEDS: Multivitamins,Therapeutic Tablet 1 TABLET PO (12:03)
[2023-03-06 14:00] VITALS: BP 105/57; PULSE 90; RESP 16; TEMP 36.8; O2SAT 94
[2023-03-06 18:03] VITALS: BP 145/83; PULSE 94
[2023-03-06] MEDS: Senna/Docusate Sodium 1 Tablet 2 TABLET PO (18:04)
[2023-03-06] MEDS: Jantoven 2 MG Tablet PO (18:04)
[2023-03-07 05:37] LABS: International Normalized Ratio 1.4; Prothrombin Time (Protime)PT. 17.3 SECONDS (11.7-14.9)
[2023-03-07 05:56] VITALS: BP 144/92; PULSE 91
[2023-03-07] MEDS: Metoprolol Tartrate 25 MG Tablet 12.5 MG PO ×2 (05:56→17:11)
[2023-03-07] MEDS: Loratadine 10 MG Tablet PO (05:56)
[2023-03-07] MEDS: dilTIAZem CD 120 MG Capsule PO ×2 (05:56→17:10)
[2023-03-07] MEDS: Isosorbide Mononitrate 30 MG Tablet PO ×2 (05:56→17:11)
[2023-03-07] MEDS: Pantoprazole Sodium 40 MG Tablet PO (05:57)
[2023-03-07] MEDS: Finasteride 5 MG Tablet PO (05:57)
[2023-03-07] MEDS: Famotidine 20 MG Tablet PO (05:57)
[2023-03-07] MEDS: Senna/Docusate Sodium 1 Tablet 2 TABLET PO ×2 (05:58→17:08)
[2023-03-07] MEDS: Cholecalciferol (VIT D3) 25 MCG TABLET (1,000 UNITS) PO (05:58)
[2023-03-07] MEDS: Levothyroxine 25 MCG TABLET 50 MCG PO (05:58)
[2023-03-07 06:00] VITALS: BMI 20.6
[2023-03-07 06:14] VITALS: BP 144/92; PULSE 91
[2023-03-07] MEDS: Creon 24,000 unit DR Capsule 3 CAP PO ×3 (08:46→17:08)
[2023-03-07] MEDS: Sucralfate 1 GM Tablet PO ×3 (08:46→16:06)
[2023-03-07] MEDS: Vitamin B Comp W-C Capsule 1 CAP PO ×2 (08:47→16:06)
[2023-03-07] MEDS: Amiodarone 200 MG Tablet 100 MG PO ×2 (08:47→16:06)
[2023-03-07] MEDS: Tamsulosin HCl 0.4 MG Capsule PO (08:47)
[2023-03-07] MEDS: Potassium Chloride Oral Tablet 10 MEQ PO (08:48)
[2023-03-07] MEDS: Lidocaine 5% Patch 1 PATCH TOPICAL (08:48)
[2023-03-07] MEDS: Ascorbic Acid 500 MG Tablet PO (08:49)
[2023-03-07] MEDS: Multivitamins,Therapeutic Tablet 1 TABLET PO (11:46)
[2023-03-07 13:38] VITALS: BP 122/79; PULSE 94; RESP 16; TEMP 36.1; O2SAT 97
[2023-03-07] MEDS: Ensure Plus High Protein 120 ML LIQUID PO ×2 (14:08→17:09)
[2023-03-07] MEDS: Warfarin 0.5 MG, Warfarin 3 MG 3.5 MG PO (16:07)
[2023-03-07 17:11] VITALS: BP 138/87; PULSE 97
[2023-03-07] MEDS: HYDROmorphone 2 MG TABLET PO (19:56)
[2023-03-07 20:00] VITALS: O2SAT 94
[2023-03-08 05:51] LABS: Absolute Lymphocyte Count 0.56 X10^3/uL (0.83-4.51); Absolute Neutrophil Count 13.9 X10^3/uL (2.0-7.7); Basophil# 0.07 X10^3/uL; Basophil% 0.4 % (0-1); Eosinophil# 0.39 X10^3/uL; Eosinophils% 2.4 % (0-5); Hematocrit 35.7 % (40-54); Hemoglobin 11.8 g/dL (13.0-16.5); Lymphocyte # 0.56 X10^3/ul (0.83-4.51); Lymphocyte % 3.4 % (19-41); Mean Corp Hgb Conc 33.1 g/dL (32-36); Mean Corpuscular Hgb 37.1 pg (27.0-32.0); Mean Corpuscular Volume 112.3 fL (80-94); Mean Platelet Vol. 9.7 fl (6.2-12.0); Monocyte# 1.06 X10^3/uL; Monocyte% 6.5 % (0-10); NRBC Flagged by Analyzer 0 % (0-5); Neutrophil # 13.93 X10^3/uL (2.7-7.7); Neutrophil % 85.7 % (47-70); POSITIVE DIFFERENTIAL YES; POSITIVE MORPHOLOGY YES; Platelet Count 267 K/mm3 (150-450); RBC Distribution Width CV 15.9 % (11.6-14.6); RBC Distribution Width SD 66.9 fl (35.1-43.9); Red Blood Count 3.18 M/mm3 (4.6-6.2); White Blood Count 16.3 K/mm3 (4.4-11.0)
[2023-03-08 05:53] LABS: Differential Indicated SCAN CRITERIA MET
[2023-03-08] MEDS: Levothyroxine 25 MCG TABLET 50 MCG PO (06:12)
[2023-03-08] MEDS: Sucralfate 1 GM Tablet PO ×3 (06:13→16:53)
[2023-03-08] MEDS: Pantoprazole Sodium 40 MG Tablet PO (06:13)
[2023-03-08] MEDS: Cholecalciferol (VIT D3) 25 MCG TABLET (1,000 UNITS) PO (06:13)
[2023-03-08] MEDS: Loratadine 10 MG Tablet PO (06:13)
[2023-03-08] MEDS: dilTIAZem CD 120 MG Capsule PO ×2 (06:13→17:42)
[2023-03-08] MEDS: Finasteride 5 MG Tablet PO (06:13)
[2023-03-08] MEDS: Isosorbide Mononitrate 30 MG Tablet PO ×2 (06:13→17:42)
[2023-03-08] MEDS: Famotidine 20 MG Tablet PO (06:13)
[2023-03-08 06:14] VITALS: BP 156/96; PULSE 95
[2023-03-08] MEDS: Metoprolol Tartrate 25 MG Tablet 12.5 MG PO ×2 (06:14→17:43)
[2023-03-08 06:21] LABS: Anion Gap 3 (5-15); BUN 38 mg/dL (7-18); Calcium,Total 8.3 mg/dL (8.5-10.1); Chloride 111 mmol/L (98-107); Creatinine, Serum 1.52 mg/dL (0.70-1.30); EST Glomerular Filtration Rate 47 mL/min (>60); Est Glom Filt Rate - Afr Amer 57 mL/min (>60); Estimated Creatinine Clearance 33.15 ml/min; Glucose 98 mg/dL (74-106); Potassium 4.4 mmol/L (3.5-5.1); Sodium Level 141 mmol/L (136-145)
[2023-03-08] MEDS: HYDROmorphone 2 MG TABLET PO ×3 (06:22→21:49)
[2023-03-08 07:00] LABS: Anisocytosis 1+; Macrocytosis 2+
[2023-03-08] MEDS: Vitamin B Comp W-C Capsule 1 CAP PO ×2 (08:57→17:37)
[2023-03-08] MEDS: Creon 24,000 unit DR Capsule 3 CAP PO ×3 (08:57→17:40)
[2023-03-08] MEDS: Tamsulosin HCl 0.4 MG Capsule PO (08:57)
[2023-03-08] MEDS: Potassium Chloride Oral Tablet 10 MEQ PO (08:58)
[2023-03-08] MEDS: Ascorbic Acid 500 MG Tablet PO (08:58)
[2023-03-08] MEDS: Ensure Plus High Protein 120 ML LIQUID PO ×2 (09:01→12:08)
[2023-03-08] MEDS: Amiodarone 200 MG Tablet 100 MG PO ×2 (09:03→17:38)
[2023-03-08 09:08] VITALS: BP 141/95; PULSE 89
[2023-03-08] MEDS: Multivitamins,Therapeutic Tablet 1 TABLET PO (12:05)
[2023-03-08 14:00] VITALS: BP 146/97; PULSE 97; RESP 16; TEMP 36.6; O2SAT 97
[2023-03-08] MEDS: Lidocaine 5% Patch 1 PATCH TOPICAL (14:04)
[2023-03-08] MEDS: Senna/Docusate Sodium 1 Tablet 2 TABLET PO (17:42)
[2023-03-08 17:43] VITALS: BP 146/97; PULSE 97
[2023-03-08] MEDS: Warfarin 0.5 MG, Warfarin 3 MG 3.5 MG PO (17:46)
[2023-03-08 22:45] VITALS: O2SAT 95
[2023-03-09 06:00] VITALS: BMI 20.5
[2023-03-09 06:28] VITALS: BP 149/95; PULSE 94
[2023-03-09] MEDS: Levothyroxine 25 MCG TABLET 50 MCG PO (06:28)
[2023-03-09] MEDS: Senna/Docusate Sodium 1 Tablet 2 TABLET PO ×2 (06:28→17:53)
[2023-03-09] MEDS: Metoprolol Tartrate 25 MG Tablet 12.5 MG PO ×2 (06:28→17:53)
[2023-03-09] MEDS: Isosorbide Mononitrate 30 MG Tablet PO ×2 (06:29→17:53)
[2023-03-09] MEDS: Famotidine 20 MG Tablet PO (06:29)
[2023-03-09] MEDS: dilTIAZem CD 120 MG Capsule PO ×2 (06:29→17:53)
[2023-03-09] MEDS: Pantoprazole Sodium 40 MG Tablet PO (06:29)
[2023-03-09] MEDS: Finasteride 5 MG Tablet PO (06:29)
[2023-03-09] MEDS: Cholecalciferol (VIT D3) 25 MCG TABLET (1,000 UNITS) PO (06:29)
[2023-03-09] MEDS: Loratadine 10 MG Tablet PO (06:29)
[2023-03-09] MEDS: Sucralfate 1 GM Tablet PO ×2 (06:29→16:06)
[2023-03-09] MEDS: Ondansetron ODT 4 MG Tablet PO (06:30)
[2023-03-09] MEDS: Lidocaine 5% Patch 1 PATCH TOPICAL (08:11)
[2023-03-09] MEDS: Ascorbic Acid 500 MG Tablet PO (08:12)
[2023-03-09] MEDS: Ensure Plus High Protein 120 ML LIQUID PO ×3 (08:13→17:53)
[2023-03-09] MEDS: Vitamin B Comp W-C Capsule 1 CAP PO ×2 (08:13→17:53)
[2023-03-09] MEDS: Creon 24,000 unit DR Capsule 3 CAP PO ×3 (08:13→17:53)
[2023-03-09] MEDS: Tamsulosin HCl 0.4 MG Capsule PO (08:13)
[2023-03-09] MEDS: Amiodarone 200 MG Tablet 100 MG PO ×2 (08:13→17:53)
[2023-03-09] MEDS: Potassium Chloride Oral Tablet 10 MEQ PO (08:13)
[2023-03-09] MEDS: HYDROmorphone 2 MG TABLET PO ×2 (10:14→17:55)
[2023-03-09] MEDS: Multivitamins,Therapeutic Tablet 1 TABLET PO (12:02)
[2023-03-09 14:00] VITALS: BP 127/85; PULSE 97; RESP 16; TEMP 36.5; O2SAT 95
[2023-03-09 17:53] VITALS: BP 124/83; PULSE 95
[2023-03-09] MEDS: Warfarin 0.5 MG, Warfarin 3 MG 3.5 MG PO (17:54)
[2023-03-09 19:37] VITALS: O2SAT 97
[2023-03-10] MEDS: Levothyroxine 25 MCG TABLET 50 MCG PO (05:37)
[2023-03-10] MEDS: Loratadine 10 MG Tablet PO (05:38)
[2023-03-10] MEDS: Finasteride 5 MG Tablet PO (05:38)
[2023-03-10] MEDS: Isosorbide Mononitrate 30 MG Tablet PO ×2 (05:38→17:58)
[2023-03-10] MEDS: dilTIAZem CD 120 MG Capsule PO ×2 (05:38→18:01)
[2023-03-10] MEDS: Senna/Docusate Sodium 1 Tablet 2 TABLET PO ×2 (05:38→17:57)
[2023-03-10 05:39] VITALS: BP 119/72; PULSE 93
[2023-03-10] MEDS: Famotidine 20 MG Tablet PO (05:39)
[2023-03-10] MEDS: Metoprolol Tartrate 25 MG Tablet 12.5 MG PO ×2 (05:39→17:56)
[2023-03-10] MEDS: Sucralfate 1 GM Tablet PO ×3 (05:39→17:59)
[2023-03-10] MEDS: Cholecalciferol (VIT D3) 25 MCG TABLET (1,000 UNITS) PO (05:39)
[2023-03-10] MEDS: Pantoprazole Sodium 40 MG Tablet PO (05:39)
[2023-03-10 06:00] VITALS: BMI 20.5
[2023-03-10 06:17] LABS: International Normalized Ratio 1.7; Prothrombin Time (Protime)PT. 19.7 SECONDS (11.7-14.9)
[2023-03-10] MEDS: Creon 24,000 unit DR Capsule 3 CAP PO ×3 (08:05→17:58)
[2023-03-10] MEDS: Amiodarone 200 MG Tablet 100 MG PO ×2 (08:06→18:01)
[2023-03-10] MEDS: Ensure Plus High Protein 120 ML LIQUID PO ×3 (08:06→18:04)
[2023-03-10] MEDS: Vitamin B Comp W-C Capsule 1 CAP PO ×2 (08:06→18:00)
[2023-03-10] MEDS: Potassium Chloride Oral Tablet 10 MEQ PO (08:07)
[2023-03-10] MEDS: Lidocaine 5% Patch 1 PATCH TOPICAL (08:07)
[2023-03-10] MEDS: Tamsulosin HCl 0.4 MG Capsule PO (08:07)
[2023-03-10] MEDS: Ascorbic Acid 500 MG Tablet PO (08:08)
[2023-03-10] MEDS: HYDROmorphone 2 MG TABLET PO (08:50)
[2023-03-10] MEDS: Ondansetron ODT 4 MG Tablet PO (08:58)
[2023-03-10 14:00] VITALS: BP 111/71; PULSE 96; RESP 15; TEMP 36.6; O2SAT 92
[2023-03-10] MEDS: Multivitamins,Therapeutic Tablet 1 TABLET PO (14:37)
--- NOTE | 2023-03-10 15:30 | NURSING ---
Patient put call light on and stated that he was nauseous and that he had an emesis. This nurse assessed vital signs stable, patient given zofran and pain medication due to complaints of 6/10 pain.Patient then went to sleep and states that he feels better. Patient given afternoon medications after patient stated that he wanted them they had been held due to emesis. Patient now up in recliner watching TV.
[2023-03-10 17:56] VITALS: PULSE 97
[2023-03-10] MEDS: Warfarin 0.5 MG, Warfarin 3 MG 3.5 MG PO (18:00)
[2023-03-10] MEDS: Baclofen 10 MG Tablet 5 MG PO (20:18)
[2023-03-10] MEDS: Acetaminophen 500 MG Tablet 1000 MG PO (20:19)
[2023-03-11 05:55] VITALS: BMI 20.5
[2023-03-11 05:56] VITALS: BP 127/80; PULSE 92
[2023-03-11] MEDS: Metoprolol Tartrate 25 MG Tablet 12.5 MG PO ×2 (05:56→17:55)
[2023-03-11] MEDS: dilTIAZem CD 120 MG Capsule PO ×2 (05:56→17:52)
[2023-03-11] MEDS: Loratadine 10 MG Tablet PO (05:56)
[2023-03-11] MEDS: Isosorbide Mononitrate 30 MG Tablet PO ×2 (05:56→17:52)
[2023-03-11] MEDS: Finasteride 5 MG Tablet PO (05:57)
[2023-03-11] MEDS: Senna/Docusate Sodium 1 Tablet 2 TABLET PO (05:57)
[2023-03-11] MEDS: Cholecalciferol (VIT D3) 25 MCG TABLET (1,000 UNITS) PO (05:57)
[2023-03-11] MEDS: Famotidine 20 MG Tablet PO (05:57)
[2023-03-11] MEDS: Levothyroxine 25 MCG TABLET 50 MCG PO (05:57)
[2023-03-11] MEDS: Pantoprazole Sodium 40 MG Tablet PO (05:57)
[2023-03-11 06:05] VITALS: BP 127/80; PULSE 92
[2023-03-11] MEDS: Vitamin B Comp W-C Capsule 1 CAP PO ×2 (07:47→16:42)
[2023-03-11] MEDS: Sucralfate 1 GM Tablet PO ×3 (07:47→16:42)
[2023-03-11] MEDS: Creon 24,000 unit DR Capsule 3 CAP PO ×3 (07:47→17:52)
[2023-03-11] MEDS: Amiodarone 200 MG Tablet 100 MG PO ×2 (07:48→16:42)
[2023-03-11] MEDS: Potassium Chloride Oral Tablet 10 MEQ PO (07:48)
[2023-03-11] MEDS: Tamsulosin HCl 0.4 MG Capsule PO (07:49)
[2023-03-11] MEDS: Ascorbic Acid 500 MG Tablet PO (07:49)
[2023-03-11] MEDS: Ensure Plus High Protein 120 ML LIQUID PO (07:52)
[2023-03-11] MEDS: Multivitamins,Therapeutic Tablet 1 TABLET PO (11:05)
[2023-03-11 13:55] VITALS: BP 113/81; PULSE 101; RESP 18; TEMP 36.3; O2SAT 96
[2023-03-11] MEDS: Warfarin 0.5 MG, Warfarin 3 MG 3.5 MG PO (16:42)
[2023-03-11 17:55] VITALS: PULSE 78
[2023-03-11] MEDS: HYDROmorphone 2 MG TABLET PO (20:53)
[2023-03-12 04:57] VITALS: BP 127/83; PULSE 92
[2023-03-12] MEDS: Loratadine 10 MG Tablet PO (04:57)
[2023-03-12] MEDS: dilTIAZem CD 120 MG Capsule PO ×2 (04:57→18:17)
[2023-03-12] MEDS: Metoprolol Tartrate 25 MG Tablet 12.5 MG PO ×2 (04:57→18:12)
[2023-03-12] MEDS: Isosorbide Mononitrate 30 MG Tablet PO ×2 (04:57→18:17)
[2023-03-12] MEDS: Levothyroxine 25 MCG TABLET 50 MCG PO (04:59)
[2023-03-12] MEDS: Famotidine 20 MG Tablet PO (04:59)
[2023-03-12] MEDS: Finasteride 5 MG Tablet PO (04:59)
[2023-03-12] MEDS: Cholecalciferol (VIT D3) 25 MCG TABLET (1,000 UNITS) PO (04:59)
[2023-03-12] MEDS: Pantoprazole Sodium 40 MG Tablet PO (04:59)
[2023-03-12 05:27] VITALS: BMI 20.6
[2023-03-12] MEDS: Sucralfate 1 GM Tablet PO ×3 (06:41→16:48)
[2023-03-12] MEDS: Ensure Plus High Protein 120 ML LIQUID PO ×3 (06:43→18:22)
[2023-03-12] MEDS: Baclofen 10 MG Tablet 5 MG PO (08:48)
[2023-03-12] MEDS: Ondansetron ODT 4 MG Tablet PO (08:49)
[2023-03-12] MEDS: Creon 24,000 unit DR Capsule 3 CAP PO ×3 (08:50→18:16)
[2023-03-12] MEDS: Amiodarone 200 MG Tablet 100 MG PO ×2 (08:51→18:15)
[2023-03-12] MEDS: Vitamin B Comp W-C Capsule 1 CAP PO ×2 (08:51→18:13)
[2023-03-12] MEDS: Tamsulosin HCl 0.4 MG Capsule PO (08:52)
[2023-03-12] MEDS: Lidocaine 5% Patch 1 PATCH TOPICAL (08:53)
[2023-03-12] MEDS: Potassium Chloride Oral Tablet 10 MEQ PO (08:53)
[2023-03-12] MEDS: Ascorbic Acid 500 MG Tablet PO (08:54)
[2023-03-12 08:59] VITALS: BP 132/86; PULSE 96
[2023-03-12 10:10] VITALS: PULSE 90; RESP 18; O2SAT 97
[2023-03-12] MEDS: Multivitamins,Therapeutic Tablet 1 TABLET PO (11:53)
[2023-03-12 14:00] VITALS: BP 119/70; PULSE 95; RESP 16; TEMP 36.3; O2SAT 95
[2023-03-12] MEDS: HYDROmorphone 2 MG TABLET PO (14:38)
[2023-03-12 18:12] VITALS: BP 119/70; PULSE 95
[2023-03-12] MEDS: Senna/Docusate Sodium 1 Tablet 2 TABLET PO (18:14)
[2023-03-12] MEDS: Warfarin 0.5 MG, Warfarin 3 MG 3.5 MG PO (18:18)
[2023-03-13 05:58] VITALS: BMI 20.6
[2023-03-13] MEDS: dilTIAZem CD 120 MG Capsule PO ×2 (06:06→17:00)
[2023-03-13 06:07] VITALS: BP 133/76; PULSE 91
[2023-03-13] MEDS: Cholecalciferol (VIT D3) 25 MCG TABLET (1,000 UNITS) PO (06:07)
[2023-03-13] MEDS: Metoprolol Tartrate 25 MG Tablet 12.5 MG PO ×2 (06:07→17:00)
[2023-03-13] MEDS: Loratadine 10 MG Tablet PO (06:07)
[2023-03-13] MEDS: Pantoprazole Sodium 40 MG Tablet PO (06:07)
[2023-03-13] MEDS: Levothyroxine 25 MCG TABLET 50 MCG PO (06:07)
[2023-03-13] MEDS: Sucralfate 1 GM Tablet PO ×3 (06:07→16:23)
[2023-03-13] MEDS: Famotidine 20 MG Tablet PO (06:07)
[2023-03-13] MEDS: Senna/Docusate Sodium 1 Tablet 2 TABLET PO ×2 (06:07→16:57)
[2023-03-13] MEDS: Isosorbide Mononitrate 30 MG Tablet PO ×2 (06:08→17:01)
[2023-03-13] MEDS: Finasteride 5 MG Tablet PO (06:09)
[2023-03-13 06:53] VITALS: BP 133/76; PULSE 91; RESP 16; TEMP 37.2; O2SAT 94
[2023-03-13] MEDS: Ensure Plus High Protein 120 ML LIQUID PO ×3 (07:40→16:56)
[2023-03-13] MEDS: Vitamin B Comp W-C Capsule 1 CAP PO ×2 (07:42→16:58)
[2023-03-13] MEDS: Amiodarone 200 MG Tablet 100 MG PO ×2 (07:42→16:58)
[2023-03-13] MEDS: Creon 24,000 unit DR Capsule 3 CAP PO ×3 (07:42→16:57)
[2023-03-13] MEDS: Potassium Chloride Oral Tablet 10 MEQ PO (07:44)
[2023-03-13] MEDS: Ascorbic Acid 500 MG Tablet PO (07:44)
[2023-03-13] MEDS: Tamsulosin HCl 0.4 MG Capsule PO (07:44)
[2023-03-13] MEDS: Lidocaine 5% Patch 1 PATCH TOPICAL (07:45)
[2023-03-13 07:50] VITALS: BP 138/90; PULSE 95
[2023-03-13] MEDS: Polyethylene Glycol 3350 17 GM PACKET PO (10:29)
[2023-03-13] MEDS: Multivitamins,Therapeutic Tablet 1 TABLET PO (12:58)
[2023-03-13 13:54] VITALS: BP 133/91; PULSE 100; RESP 16; TEMP 36.8; O2SAT 93
[2023-03-13] MEDS: Warfarin 0.5 MG, Warfarin 3 MG 3.5 MG PO (16:59)
[2023-03-13 17:00] VITALS: BP 133/91; PULSE 100
[2023-03-13] MEDS: Acetaminophen 500 MG Tablet 1000 MG PO (17:04)
[2023-03-13 20:13] VITALS: PULSE 83; RESP 16; O2SAT 91
[2023-03-13] MEDS: HYDROmorphone 2 MG TABLET PO (22:52)
[2023-03-14 05:33] VITALS: BMI 20.5
[2023-03-14] MEDS: Levothyroxine 25 MCG TABLET 50 MCG PO (05:41)
[2023-03-14] MEDS: Senna/Docusate Sodium 1 Tablet 2 TABLET PO ×2 (05:41→18:43)
[2023-03-14 05:42] VITALS: BP 142/86; PULSE 93
[2023-03-14] MEDS: Metoprolol Tartrate 25 MG Tablet 12.5 MG PO ×2 (05:42→18:44)
[2023-03-14] MEDS: Loratadine 10 MG Tablet PO (05:43)
[2023-03-14] MEDS: dilTIAZem CD 120 MG Capsule PO ×2 (05:44→18:43)
[2023-03-14] MEDS: Isosorbide Mononitrate 30 MG Tablet PO ×2 (05:44→18:44)
[2023-03-14] MEDS: Famotidine 20 MG Tablet PO (05:45)
[2023-03-14] MEDS: Pantoprazole Sodium 40 MG Tablet PO (05:45)
[2023-03-14] MEDS: Cholecalciferol (VIT D3) 25 MCG TABLET (1,000 UNITS) PO (05:45)
[2023-03-14] MEDS: Finasteride 5 MG Tablet PO (05:45)
[2023-03-14] MEDS: Sucralfate 1 GM Tablet PO ×3 (05:45→16:50)
[2023-03-14 06:10] LABS: International Normalized Ratio 2.1; Prothrombin Time (Protime)PT. 23.8 SECONDS (11.7-14.9)
[2023-03-14] MEDS: Ondansetron ODT 4 MG Tablet PO (06:58)
[2023-03-14] MEDS: Ensure Plus High Protein 120 ML LIQUID PO ×3 (09:05→18:42)
[2023-03-14] MEDS: Tamsulosin HCl 0.4 MG Capsule PO (09:05)
[2023-03-14] MEDS: Lidocaine 5% Patch 1 PATCH TOPICAL (09:05)
[2023-03-14] MEDS: Creon 24,000 unit DR Capsule 3 CAP PO ×3 (09:06→18:43)
[2023-03-14] MEDS: Ascorbic Acid 500 MG Tablet PO (09:06)
[2023-03-14] MEDS: Vitamin B Comp W-C Capsule 1 CAP PO ×2 (09:06→18:42)
[2023-03-14] MEDS: Potassium Chloride Oral Tablet 10 MEQ PO (09:08)
[2023-03-14] MEDS: Amiodarone 200 MG Tablet 100 MG PO ×2 (09:08→18:44)
--- NOTE | 2023-03-14 12:01 | NURSING ---
Addendum entered by Aleksey Martines 03/14/23 13:02: Pt returned at [id number]. Dylan's office reaching out to insurance company for authorization for Radio Frequency ablation. Original Note: Pt taken to Dr. Maher's office at [id number].
[2023-03-14] MEDS: Multivitamins,Therapeutic Tablet 1 TABLET PO (13:06)
[2023-03-14 13:48] VITALS: BP 140/80; PULSE 100; RESP 18; TEMP 36.7; O2SAT 93
[2023-03-14 15:39] VITALS: PULSE 60; RESP 19; O2SAT 94
[2023-03-14] MEDS: HYDROmorphone 2 MG TABLET PO (15:54)
[2023-03-14] MEDS: Warfarin 0.5 MG, Warfarin 3 MG 3.5 MG PO (18:43)
[2023-03-14 18:44] VITALS: BP 130/71; PULSE 95
[2023-03-15] MEDS: Loratadine 10 MG Tablet PO (05:32)
[2023-03-15 05:35] VITALS: BP 141/84; PULSE 94
[2023-03-15] MEDS: Metoprolol Tartrate 25 MG Tablet 12.5 MG PO ×2 (05:35→18:23)
[2023-03-15] MEDS: dilTIAZem CD 120 MG Capsule PO ×2 (05:36→18:22)
[2023-03-15] MEDS: Isosorbide Mononitrate 30 MG Tablet PO ×2 (05:37→18:22)
[2023-03-15] MEDS: Pantoprazole Sodium 40 MG Tablet PO (05:37)
[2023-03-15] MEDS: Finasteride 5 MG Tablet PO (05:37)
[2023-03-15] MEDS: Famotidine 20 MG Tablet PO (05:37)
[2023-03-15] MEDS: Senna/Docusate Sodium 1 Tablet 2 TABLET PO ×2 (05:38→18:23)
[2023-03-15] MEDS: Levothyroxine 25 MCG TABLET 50 MCG PO (05:38)
[2023-03-15 05:39] VITALS: BMI 20.6
[2023-03-15] MEDS: Sucralfate 1 GM Tablet PO ×3 (05:39→16:40)
[2023-03-15] MEDS: Cholecalciferol (VIT D3) 25 MCG TABLET (1,000 UNITS) PO (05:39)
[2023-03-15 05:59] LABS: Absolute Lymphocyte Count 0.46 X10^3/uL (0.83-4.51); Absolute Neutrophil Count 10.7 X10^3/uL (2.0-7.7); Basophil# 0.05 X10^3/uL; Basophil% 0.4 % (0-1); Eosinophil# 0.35 X10^3/uL; Eosinophils% 2.8 % (0-5); Hematocrit 32.4 % (40-54); Hemoglobin 10.7 g/dL (13.0-16.5); Lymphocyte # 0.46 X10^3/ul (0.83-4.51); Lymphocyte % 3.6 % (19-41); Mean Corpuscular Hgb 36.1 pg (27.0-32.0); Mean Corpuscular Volume 109.5 fL (80-94); Mean Platelet Vol. 9.9 fl (6.2-12.0); Monocyte# 0.98 X10^3/uL; Monocyte% 7.7 % (0-10); NRBC Flagged by Analyzer 0 % (0-5); Neutrophil # 10.69 X10^3/uL (2.7-7.7); Neutrophil % 84.6 % (47-70); POSITIVE DIFFERENTIAL YES; Platelet Count 242 K/mm3 (150-450); RBC Distribution Width CV 15.8 % (11.6-14.6); RBC Distribution Width SD 63.5 fl (35.1-43.9); Red Blood Count 2.96 M/mm3 (4.6-6.2); White Blood Count 12.7 K/mm3 (4.4-11.0)
[2023-03-15 06:13] LABS: Differential Indicated SCAN CRITERIA MET
[2023-03-15 06:27] LABS: Anion Gap 2 (5-15); BUN 38 mg/dL (7-18); BUN/Creat Ratio 29.5 RATIO (10-20); Calcium,Total 8.4 mg/dL (8.5-10.1); Chloride 114 mmol/L (98-107); Creatinine, Serum 1.29 mg/dL (0.70-1.30); EST Glomerular Filtration Rate 57 mL/min (>60); Est Glom Filt Rate - Afr Amer 69 mL/min (>60); Glucose 94 mg/dL (74-106); Potassium 3.7 mmol/L (3.5-5.1); Sodium Level 143 mmol/L (136-145)
[2023-03-15 06:37] LABS: Differential Comment SCANNED
[2023-03-15] MEDS: Lidocaine 5% Patch 1 PATCH TOPICAL (08:41)
[2023-03-15] MEDS: Vitamin B Comp W-C Capsule 1 CAP PO ×2 (08:43→18:18)
[2023-03-15] MEDS: Tamsulosin HCl 0.4 MG Capsule PO (08:43)
[2023-03-15] MEDS: Potassium Chloride Oral Tablet 10 MEQ PO (08:43)
[2023-03-15] MEDS: Ascorbic Acid 500 MG Tablet PO (08:43)
[2023-03-15] MEDS: Creon 24,000 unit DR Capsule 3 CAP PO ×3 (08:43→18:18)
[2023-03-15] MEDS: Ensure Plus High Protein 120 ML LIQUID PO ×3 (08:44→18:18)
[2023-03-15] MEDS: Amiodarone 200 MG Tablet 100 MG PO ×2 (08:46→18:19)
[2023-03-15 08:49] VITALS: BP 130/78; PULSE 97
[2023-03-15 09:07] VITALS: BMI 20.6
[2023-03-15] MEDS: HYDROmorphone 2 MG TABLET PO (10:46)
--- NOTE | 2023-03-15 11:13 | NURSING ---
Spoke with staff at Dr. Richardson's office to schedule procedure for Thursday 03/22 @0830. Orders to have him NPO for 4hrs prior to procedure. Ok to have regular meds but no pain meds for 4hr NPO period. Dr. Richardson requested Dr. Samuel give ok to hold coumadin for 5 days before. Verbal order received from Dr. Samuel to hold coumadin.
[2023-03-15] MEDS: Multivitamins,Therapeutic Tablet 1 TABLET PO (11:45)
[2023-03-15 13:19] VITALS: BP 130/85; PULSE 98; RESP 18; TEMP 36.6; O2SAT 90
[2023-03-15] MEDS: Warfarin 0.5 MG, Warfarin 3 MG 3.5 MG PO (18:20)
[2023-03-15 18:23] VITALS: BP 130/85; PULSE 98
[2023-03-15 20:15] VITALS: PULSE 96; RESP 16; O2SAT 98
[2023-03-15] MEDS: Acetaminophen 500 MG Tablet 1000 MG PO (22:13)
[2023-03-16] MEDS: Levothyroxine 25 MCG TABLET 50 MCG PO (05:39)
[2023-03-16 05:40] VITALS: BP 136/83; PULSE 95
[2023-03-16] MEDS: Senna/Docusate Sodium 1 Tablet 2 TABLET PO (05:40)
[2023-03-16] MEDS: Famotidine 20 MG Tablet PO (05:40)
[2023-03-16] MEDS: Finasteride 5 MG Tablet PO (05:40)
[2023-03-16] MEDS: Pantoprazole Sodium 40 MG Tablet PO (05:40)
[2023-03-16] MEDS: Cholecalciferol (VIT D3) 25 MCG TABLET (1,000 UNITS) PO (05:40)
[2023-03-16] MEDS: Metoprolol Tartrate 25 MG Tablet 12.5 MG PO ×2 (05:40→18:08)
[2023-03-16] MEDS: dilTIAZem CD 120 MG Capsule PO ×2 (05:41→18:08)
[2023-03-16] MEDS: Loratadine 10 MG Tablet PO (05:41)
[2023-03-16] MEDS: Isosorbide Mononitrate 30 MG Tablet PO ×2 (05:41→18:08)
[2023-03-16 05:47] VITALS: BP 136/83; PULSE 95; RESP 18; O2SAT 96
[2023-03-16 06:00] VITALS: BMI 20.5
[2023-03-16] MEDS: Creon 24,000 unit DR Capsule 3 CAP PO ×2 (08:29→18:08)
[2023-03-16] MEDS: Amiodarone 200 MG Tablet 100 MG PO ×2 (08:29→18:08)
[2023-03-16] MEDS: Sucralfate 1 GM Tablet PO ×3 (08:29→16:26)
[2023-03-16] MEDS: Potassium Chloride Oral Tablet 10 MEQ PO (08:29)
[2023-03-16] MEDS: Tamsulosin HCl 0.4 MG Capsule PO (08:29)
[2023-03-16] MEDS: Ascorbic Acid 500 MG Tablet PO (08:29)
[2023-03-16] MEDS: Lidocaine 5% Patch 1 PATCH TOPICAL (08:29)
[2023-03-16] MEDS: Vitamin B Comp W-C Capsule 1 CAP PO ×2 (08:30→18:07)
[2023-03-16] MEDS: Ensure Plus High Protein 120 ML LIQUID PO (08:33)
[2023-03-16 10:23] VITALS: PULSE 96; RESP 19; O2SAT 99
[2023-03-16] MEDS: Ondansetron ODT 4 MG Tablet PO (12:53)
[2023-03-16 14:00] VITALS: BP 110/60; PULSE 96; RESP 16; TEMP 36.3; O2SAT 94
--- NOTE | 2023-03-16 17:20 | RAD_ITS ---
EXAM: XR ABDOMEN, 1 VIEW CLINICAL INDICATION: diarrhea TECHNIQUE: Frontal supine view of the abdomen/pelvis. COMPARISON: Fluoroscopic guidance for spinal injection February 25, 2023, CT abdomen and pelvis February 19, 2023 showing vertebroplasty at L1, T12, T10, compression deformities at multiple levels including T11 visible subacute-appearing fracture line. Multiple metallic foci are noted in the prostate. Moderate diverticulosis of the colon, especially distally, and moderate stool in much of the right colon at that time. FINDINGS: LOWER THORAX: No acute pathology. GASTROINTESTINAL TRACT: There is mild gas and stool in the right colon, mild gas and stool in the rectum. No dilated small bowel loops. ORGANS: Unremarkable as visualized. No organomegaly. No abnormal calcifications. BONES/JOINTS: Multilevel dense vertebroplasty material similar to prior CT. SOFT TISSUES: Surgical clips project over the expected region of the prostate as seen on the prior CT. OTHER FINDINGS: The patient is rotated. To the right. RAD/Abdomen Single View IMPRESSION: The lung bases are not included. Patient rotation. Chronic spine changes. Mild gas and stool in the colon. Electronically Signed: Marcella Brian MD at 7:32 EDT ,
[2023-03-16 18:08] VITALS: BP 136/84; PULSE 99
[2023-03-16] MEDS: Warfarin 0.5 MG, Warfarin 3 MG 3.5 MG PO (18:08)
[2023-03-16] MEDS: Baclofen 10 MG Tablet 5 MG PO ×2 (18:12→23:22)
[2023-03-16] MEDS: Acetaminophen 500 MG Tablet 1000 MG PO (18:12)
[2023-03-16] MEDS: HYDROmorphone 2 MG TABLET PO (23:22)
[2023-03-17 05:09] VITALS: BMI 20.5
[2023-03-17 05:25] VITALS: BP 140/91; PULSE 94
[2023-03-17] MEDS: Cholecalciferol (VIT D3) 25 MCG TABLET (1,000 UNITS) PO (05:25)
[2023-03-17] MEDS: Levothyroxine 25 MCG TABLET 50 MCG PO (05:25)
[2023-03-17] MEDS: dilTIAZem CD 120 MG Capsule PO ×2 (05:25→18:09)
[2023-03-17] MEDS: Metoprolol Tartrate 25 MG Tablet 12.5 MG PO ×2 (05:25→18:10)
[2023-03-17] MEDS: Famotidine 20 MG Tablet PO (05:25)
[2023-03-17] MEDS: Isosorbide Mononitrate 30 MG Tablet PO ×2 (05:25→18:10)
[2023-03-17] MEDS: Loratadine 10 MG Tablet PO (05:26)
[2023-03-17] MEDS: Pantoprazole Sodium 40 MG Tablet PO (05:26)
[2023-03-17] MEDS: Finasteride 5 MG Tablet PO (05:26)
[2023-03-17 05:49] LABS: International Normalized Ratio 2.3; Prothrombin Time (Protime)PT. 25.4 SECONDS (11.7-14.9)
[2023-03-17] MEDS: Sucralfate 1 GM Tablet PO ×3 (06:37→17:02)
[2023-03-17] MEDS: Ondansetron ODT 4 MG Tablet PO (08:33)
[2023-03-17] MEDS: Creon 24,000 unit DR Capsule 3 CAP PO ×3 (09:33→18:07)
[2023-03-17] MEDS: Vitamin B Comp W-C Capsule 1 CAP PO ×2 (09:33→18:09)
[2023-03-17] MEDS: Amiodarone 200 MG Tablet 100 MG PO ×2 (09:34→18:07)
[2023-03-17] MEDS: Potassium Chloride Oral Tablet 10 MEQ PO (09:35)
[2023-03-17] MEDS: Tamsulosin HCl 0.4 MG Capsule PO (09:35)
[2023-03-17] MEDS: Ascorbic Acid 500 MG Tablet PO (09:36)
[2023-03-17] MEDS: Polyethylene Glycol 3350 17 GM PACKET PO (09:36)
[2023-03-17] MEDS: HYDROmorphone 2 MG TABLET PO (09:49)
[2023-03-17 10:00] VITALS: BP 131/84; PULSE 96
--- NOTE | 2023-03-17 10:32 | NURSING ---
SSE GIVEN PER ORDER. NO RESULTS AT THIS TIME. PT COULD NOT HOLD LIQUID IN VERY WELL.
[2023-03-17] MEDS: Lidocaine 5% Patch 1 PATCH TOPICAL (11:32)
--- NOTE | 2023-03-17 13:01 | NURSING ---
PT HAD POSITIVE RESULTS FROM SSE. MED FORMED PER AID REPORT.
[2023-03-17] MEDS: Multivitamins,Therapeutic Tablet 1 TABLET PO (13:04)
[2023-03-17] MEDS: Ensure Plus High Protein 120 ML LIQUID PO ×2 (13:05→18:14)
[2023-03-17 14:00] VITALS: BP 124/75; PULSE 99; RESP 16; TEMP 36.9; O2SAT 97
--- NOTE | 2023-03-17 15:52 | NURSING ---
AID CAME TO THIS NURSE AND STATED PT WAS SHORT OF BREATH AND OXYGEN WAS 86% ROOM AIR. THIS NURSE ASSESSED PT AND HAD PT SIT STRAIGHT UP IN RECLINER AND USE I.S. OXYGEN 85% RA. PLACED 2 L OF 02 AND PT NOW 97%. LUNGS ARE CLEAR AND NO COUGHING AND NO COMPLAINTS OF BACK OR CHEST PAIN. WILL CONTINUE TO MONITOR,RN AWARE.
--- NOTE | 2023-03-17 16:47 | RAD_ITS ---
STUDY: X-RAY CHEST REASON FOR EXAM: Male, 82 years old. shortness of breath TECHNIQUE: PA and lateral COMPARISON: January 04, 2023. FINDINGS: Mild interstitial thickening in the lower lobes with mild atelectasis of the right middle lobe.. There is no demonstrated pleural abnormality. Retrocardiac soft tissue density consistent with known tortuous aorta Normal size heart. Normal mediastinum and nasrin. Normal visualized pulmonary arteries. Tortuous aortic arch and descending thoracic aorta. Multiple old compression fractures and several kyphoplasty... Normal visualized ribs, clavicles, and shoulders. There is no demonstrated abnormality of the visualized soft tissue structures of the upper abdomen. RAD/Chest PA and Lateral IMPRESSION: Mild interstitial thickening in the lower lobes and mild atelectasis of the right middle lobe Electronically Signed: Phoenix Alba MD at 17:45 EDT ,
[2023-03-17 18:10] VITALS: BP 124/75; PULSE 99
[2023-03-17] MEDS: Senna/Docusate Sodium 1 Tablet 2 TABLET PO (18:11)
[2023-03-17 20:00] VITALS: PULSE 92; RESP 18; O2SAT 92
--- NOTE | 2023-03-17 20:50 | NURSING ---
Patient placed back on 2L NC, patient was at 89% on 1L, 92% on 2L, RN aware
[2023-03-17] MEDS: MENTHOL 226.8 GM JAR 1 APPLIC TOPICAL (21:56)
[2023-03-18] MEDS: Finasteride 5 MG Tablet PO (05:17)
[2023-03-18] MEDS: Levothyroxine 25 MCG TABLET 50 MCG PO (05:17)
[2023-03-18] MEDS: Senna/Docusate Sodium 1 Tablet 2 TABLET PO ×2 (05:17→17:34)
[2023-03-18 05:18] VITALS: BP 120/77; PULSE 89
[2023-03-18] MEDS: Metoprolol Tartrate 25 MG Tablet 12.5 MG PO ×2 (05:18→17:28)
[2023-03-18] MEDS: Famotidine 20 MG Tablet PO (05:18)
[2023-03-18] MEDS: dilTIAZem CD 120 MG Capsule PO ×2 (05:18→17:28)
[2023-03-18] MEDS: Cholecalciferol (VIT D3) 25 MCG TABLET (1,000 UNITS) PO (05:19)
[2023-03-18] MEDS: Isosorbide Mononitrate 30 MG Tablet PO ×2 (05:19→17:27)
[2023-03-18] MEDS: Pantoprazole Sodium 40 MG Tablet PO (05:19)
[2023-03-18] MEDS: Loratadine 10 MG Tablet PO (05:19)
[2023-03-18 05:50] VITALS: BMI 20.5
[2023-03-18] MEDS: Sucralfate 1 GM Tablet PO ×3 (08:36→17:28)
[2023-03-18] MEDS: Creon 24,000 unit DR Capsule 3 CAP PO ×3 (08:36→17:28)
[2023-03-18] MEDS: Tamsulosin HCl 0.4 MG Capsule PO (08:37)
[2023-03-18] MEDS: Potassium Chloride Oral Tablet 10 MEQ PO (08:37)
[2023-03-18] MEDS: Amiodarone 200 MG Tablet 100 MG PO ×2 (08:37→17:28)
[2023-03-18] MEDS: Polyethylene Glycol 3350 17 GM PACKET PO (08:37)
[2023-03-18] MEDS: Vitamin B Comp W-C Capsule 1 CAP PO ×2 (08:37→17:28)
[2023-03-18] MEDS: Ascorbic Acid 500 MG Tablet PO (08:38)
[2023-03-18] MEDS: Lidocaine 5% Patch 1 PATCH TOPICAL (08:38)
[2023-03-18] MEDS: Ensure Plus High Protein 120 ML LIQUID PO ×2 (08:53→11:58)
[2023-03-18] MEDS: Multivitamins,Therapeutic Tablet 1 TABLET PO (11:56)
[2023-03-18 14:00] VITALS: BP 135/79; PULSE 101; RESP 16; TEMP 37.1; O2SAT 91
[2023-03-18 17:28] VITALS: PULSE 98
[2023-03-18] MEDS: HYDROmorphone 2 MG TABLET PO (18:26)
[2023-03-18 20:00] VITALS: O2SAT 95
[2023-03-18] MEDS: Baclofen 10 MG Tablet 5 MG PO (21:26)
[2023-03-18] MEDS: Acetaminophen 500 MG Tablet 1000 MG PO (21:26)
[2023-03-18] MEDS: MENTHOL 226.8 GM JAR 1 APPLIC TOPICAL (23:33)
[2023-03-19] MEDS: dilTIAZem CD 120 MG Capsule PO ×2 (05:34→17:27)
[2023-03-19] MEDS: Levothyroxine 25 MCG TABLET 50 MCG PO (05:34)
[2023-03-19] MEDS: Senna/Docusate Sodium 1 Tablet 2 TABLET PO (05:34)
[2023-03-19] MEDS: Isosorbide Mononitrate 30 MG Tablet PO ×2 (05:34→18:28)
[2023-03-19] MEDS: Loratadine 10 MG Tablet PO (05:34)
[2023-03-19 05:35] VITALS: BP 132/76; PULSE 92
[2023-03-19] MEDS: Metoprolol Tartrate 25 MG Tablet 12.5 MG PO ×2 (05:35→18:27)
[2023-03-19] MEDS: Pantoprazole Sodium 40 MG Tablet PO (05:35)
[2023-03-19] MEDS: Cholecalciferol (VIT D3) 25 MCG TABLET (1,000 UNITS) PO (05:35)
[2023-03-19] MEDS: Famotidine 20 MG Tablet PO (05:35)
[2023-03-19] MEDS: Sucralfate 1 GM Tablet PO ×3 (05:35→16:02)
[2023-03-19] MEDS: Finasteride 5 MG Tablet PO (05:35)
[2023-03-19 06:00] VITALS: BMI 20.5
[2023-03-19] MEDS: Creon 24,000 unit DR Capsule 3 CAP PO ×3 (07:59→17:26)
[2023-03-19] MEDS: Potassium Chloride Oral Tablet 10 MEQ PO (08:00)
[2023-03-19] MEDS: Vitamin B Comp W-C Capsule 1 CAP PO ×2 (08:00→17:25)
[2023-03-19] MEDS: Ascorbic Acid 500 MG Tablet PO (08:01)
[2023-03-19] MEDS: Amiodarone 200 MG Tablet 100 MG PO ×2 (08:01→17:26)
[2023-03-19] MEDS: Tamsulosin HCl 0.4 MG Capsule PO (08:03)
[2023-03-19] MEDS: Polyethylene Glycol 3350 17 GM PACKET PO (08:07)
[2023-03-19] MEDS: Ondansetron ODT 4 MG Tablet PO (09:51)
[2023-03-19 09:55] VITALS: O2SAT 96
[2023-03-19] MEDS: Ensure Plus High Protein 120 ML LIQUID PO ×2 (13:22→17:25)
[2023-03-19 13:23] VITALS: BP 136/79; PULSE 99; RESP 16; TEMP 36.7; O2SAT 92
[2023-03-19] MEDS: HYDROmorphone 2 MG TABLET PO ×2 (14:58→21:15)
[2023-03-19] MEDS: Baclofen 10 MG Tablet 5 MG PO (15:57)
[2023-03-19 18:27] VITALS: PULSE 92
[2023-03-20 06:00] VITALS: BMI 20.5
[2023-03-20] MEDS: Loratadine 10 MG Tablet PO (06:23)
[2023-03-20] MEDS: Isosorbide Mononitrate 30 MG Tablet PO ×2 (06:24→17:52)
[2023-03-20] MEDS: Pantoprazole Sodium 40 MG Tablet PO (06:24)
[2023-03-20] MEDS: Levothyroxine 25 MCG TABLET 50 MCG PO (06:24)
[2023-03-20 06:25] VITALS: BP 134/86; PULSE 98
[2023-03-20] MEDS: Cholecalciferol (VIT D3) 25 MCG TABLET (1,000 UNITS) PO (06:25)
[2023-03-20] MEDS: Sucralfate 1 GM Tablet PO ×3 (06:25→15:45)
[2023-03-20] MEDS: dilTIAZem CD 120 MG Capsule PO ×2 (06:25→17:52)
[2023-03-20] MEDS: Senna/Docusate Sodium 1 Tablet 2 TABLET PO (06:25)
[2023-03-20] MEDS: Finasteride 5 MG Tablet PO (06:25)
[2023-03-20] MEDS: Famotidine 20 MG Tablet PO (06:25)
[2023-03-20] MEDS: Metoprolol Tartrate 25 MG Tablet 12.5 MG PO ×2 (06:25→17:52)
[2023-03-20] MEDS: Vitamin B Comp W-C Capsule 1 CAP PO ×2 (08:02→15:45)
[2023-03-20] MEDS: Creon 24,000 unit DR Capsule 3 CAP PO ×3 (08:03→17:52)
[2023-03-20] MEDS: Tamsulosin HCl 0.4 MG Capsule PO (08:03)
[2023-03-20] MEDS: Ensure Plus High Protein 120 ML LIQUID PO ×3 (08:03→17:52)
[2023-03-20] MEDS: Amiodarone 200 MG Tablet 100 MG PO ×2 (08:04→15:45)
[2023-03-20] MEDS: Ascorbic Acid 500 MG Tablet PO (08:05)
[2023-03-20] MEDS: Lidocaine 5% Patch 1 PATCH TOPICAL (08:07)
[2023-03-20] MEDS: Potassium Chloride Oral Tablet 10 MEQ PO (08:07)
[2023-03-20] MEDS: Ondansetron ODT 4 MG Tablet PO (10:54)
[2023-03-20] MEDS: Multivitamins,Therapeutic Tablet 1 TABLET PO (13:17)
[2023-03-20 14:00] VITALS: BP 135/88; PULSE 98; RESP 16; TEMP 36.4; O2SAT 93
[2023-03-20] MEDS: MENTHOL 226.8 GM JAR 1 APPLIC TOPICAL (14:35)
[2023-03-20] MEDS: HYDROmorphone 2 MG TABLET PO ×2 (15:43→22:08)
[2023-03-20 17:52] VITALS: PULSE 92
[2023-03-20 21:45] VITALS: O2SAT 95
[2023-03-21 05:13] VITALS: BMI 20.5
[2023-03-21 05:48] LABS: Absolute Lymphocyte Count 0.54 X10^3/uL (0.83-4.51); Basophil# 0.07 X10^3/uL; Basophil% 0.5 % (0-1); Eosinophils% 3.8 % (0-5); Hematocrit 31.9 % (40-54); Hemoglobin 10.6 g/dL (13.0-16.5); Lymphocyte # 0.54 X10^3/ul (0.83-4.51); Lymphocyte % 4.1 % (19-41); Mean Corp Hgb Conc 33.2 g/dL (32-36); Mean Corpuscular Hgb 35.8 pg (27.0-32.0); Mean Corpuscular Volume 107.8 fL (80-94); Mean Platelet Vol. 9.6 fl (6.2-12.0); Monocyte# 0.81 X10^3/uL; Monocyte% 6.2 % (0-10); NRBC Flagged by Analyzer 0 % (0-5); Neutrophil # 11.01 X10^3/uL (2.7-7.7); Neutrophil % 84.6 % (47-70); POSITIVE DIFFERENTIAL YES; Platelet Count 292 K/mm3 (150-450); RBC Distribution Width CV 15.5 % (11.6-14.6); RBC Distribution Width SD 61.9 fl (35.1-43.9); Red Blood Count 2.96 M/mm3 (4.6-6.2)
[2023-03-21 05:54] LABS: Differential Indicated SCAN CRITERIA MET
[2023-03-21 05:59] LABS: International Normalized Ratio 1.6; Prothrombin Time (Protime)PT. 19.2 SECONDS (11.7-14.9)
[2023-03-21] MEDS: Levothyroxine 25 MCG TABLET 50 MCG PO (06:12)
[2023-03-21] MEDS: dilTIAZem CD 120 MG Capsule PO ×2 (06:12→17:57)
[2023-03-21] MEDS: Loratadine 10 MG Tablet PO (06:12)
[2023-03-21] MEDS: Finasteride 5 MG Tablet PO (06:12)
[2023-03-21 06:13] VITALS: BP 141/81; PULSE 98
[2023-03-21] MEDS: Isosorbide Mononitrate 30 MG Tablet PO ×2 (06:13→17:59)
[2023-03-21] MEDS: Sucralfate 1 GM Tablet PO ×3 (06:13→17:56)
[2023-03-21] MEDS: Cholecalciferol (VIT D3) 25 MCG TABLET (1,000 UNITS) PO (06:13)
[2023-03-21] MEDS: Metoprolol Tartrate 25 MG Tablet 12.5 MG PO ×2 (06:13→17:58)
[2023-03-21] MEDS: Senna/Docusate Sodium 1 Tablet 2 TABLET PO ×2 (06:13→17:59)
[2023-03-21] MEDS: Pantoprazole Sodium 40 MG Tablet PO (06:14)
[2023-03-21] MEDS: Famotidine 20 MG Tablet PO (06:14)
[2023-03-21 06:20] LABS: Differential Comment SCANNED
[2023-03-21 06:34] LABS: Anion Gap 4 (5-15); BUN 32 mg/dL (7-18); Calcium,Total 8.5 mg/dL (8.5-10.1); Chloride 111 mmol/L (98-107); Creatinine, Serum 1.28 mg/dL (0.70-1.30); EST Glomerular Filtration Rate 57 mL/min (>60); Est Glom Filt Rate - Afr Amer 69 mL/min (>60); Estimated Creatinine Clearance 39.24 ml/min; Glucose 96 mg/dL (74-106); Sodium Level 141 mmol/L (136-145)
--- NOTE | 2023-03-21 07:41 | PN.TCU_ITS ---
Subjective Subjective Resident seen, examined for regulatory visit. He has low back pain which is limiting his therapy. Dr. Richardson planning ablation tomorrow. Resident is otherwise doing well. Objective Data Objective Data Vital Signs: Vital Signs Temp Pulse Resp BP Pulse Ox O2 Del Method O2 Flow Rate 97.5 F L 98 16 141/81 H 95 Nasal Cannula 2 03/20/23 14:00 03/21/23 06:13 03/20/23 14:00 03/21/23 06:13 03/20/23 21:45 03/20/23 21:45 03/20/23 21:45 Oxygen Flow Rate (L/min) 2 Oxygen Delivery Method Nasal Cannula Weight: 61.292 kg Body Mass Index (BMI) 20.5 Intake & Output: Intake and Output for Last 24 Hours 03/19/23 03/20/23 03/21/23 23:59 23:59 23:59 Intake Total 1180 / 1180 600 / 600 Output Total 500 / 500 Balance 680 / 680 600 / 600 Medical Nutrition Assessment Dietitian: Malnutrition Criteria Met Start: 02/23/23 13:29 Freq: Status: Active Protocol: Document 02/28/23 13:08 [facility] (Rec: 02/28/23 13:08 [facility] [id number]) Nutrition Malnutrition Evidence of Malnutrition Exists Yes Malnutrition (severe): Acute Illness/Injury Evidenced By Suboptimal Energy Intake ( Severe),Weight Loss (Severe) Clinical Problem Acute Disease or Injury Related Malnutrition Etiology related to issues w/ pain making it difficult to consume adequate energy/protein Signs/Symptoms as evidenced by 6.7% unintended wt loss and po intake <50% of usual times past 1-2 months [employer] - res now eating >50% at most meals Status Active Problem Recommendation Dietitian Recommendations/Changes Continue regular no added salt diet - meats cut to bite size pieces Continue 4 oz ensure plus high protein tid w/ medpass Monitor need for additional ONS pending continued po intake and wt trends Lab / Micro Data 03/21/23 05:08 03/21/23 05:08 Labs: Laboratory Results - last 24 hr 03/21/23 05:08: WBC 13.0 H, RBC 2.96 L, Hgb 10.6 L, Hct 31.9 L, MCV 107.8 H, MCH 35.8 H, MCHC 33.2, RDW Std Deviation 61.9 H, RDW Coeff of Pablo 15.5 H, Plt Count 292, MPV 9.6, Immature Gran % (Auto) 0.800, Neut % (Auto) 84.6 H, Lymph % (Auto) 4.1 L, [place] % (Auto) 6.2, Eos % (Auto) 3.8, Baso % (Auto) 0.5, Absolute Neuts (auto) 11.0 H, Absolute Lymphs (auto) 0.54 L, Nucleated RBC % 0, Differential Comment SCANNED, PT 19.2 H, INR 1.6, Sodium 141, Potassium 4.0, Chloride 111 H, Carbon Dioxide 26.0, Anion Gap 4 L, BUN 32 H, Creatinine 1.28, Estim Creat Clear Calc 39.24, Est GFR (MDRD) Af Amer 69, Est GFR (MDRD) Non-Af 57 L, BUN/Creatinine Ratio 25.0 H, Glucose 96, Calcium 8.5 Physical Exam Const alert General Appearance: cooperative HEENT normocephalic Eyes PERRL and EOMs intact bilaterally Neck supple, no JVD and no carotid bruits Resp normal respiratory effort, normal air movement and clear to auscultation bilaterally Cardio regular rate and regular rhythm GI normal to inspection, nondistended, normoactive bowel sounds, non-tender and non-distended Extremity normal capillary refill General Extremity: Negative for edema Skin no rashes or lesions noted General Skin Exam: no breakdown Psych affect normal Appearance: appropriate Assessment & Plan Assessment/Plan (1) Debility: (2) Intractable low back pain: (3) Acute kidney injury: (4) Chronic kidney disease, stage 3b: (5) BPH (benign prostatic hyperplasia): (6) Osteoporosis: (7) Coronary artery disease: (8) Atrial fibrillation: (9) GERD (gastroesophageal reflux disease): (10) Iron deficiency anemia: PLAN: Plan 82 year old male with below past medical history significant for resolving diverticulitis, hospitalized for intractable low back pain, complicated by acute kidney injury, admitted to TCU with debility, here for rehabilitation, stren gthening, prior to discharge home alone. * Debility - PT/OT. * Dysphagia - ST. * Pain - Tylenol 1000mg q6h prn pain (1-3), Dilaudid 1-2mg q6h prn pain (4-10), Lidoderm patch td daily. * Bowel - Miralax 17gm daily, Senokot 1 tablet bid prn, senna/colace 2 tablets bid, Dulcolax 10mg pr x 1 prn. * Adult immunization - Administer pneumonia vaccine, covid19 vaccine, flu vaccine as appropriate. * DVT prophylaxis - on warfarin. * Atrial fibrillation - Metoprolol 12.5mg bid, Diltiazem 120mg bid, Amiodarone 1 00mg bidcm, Warfarin 3.5mg. * Vitamin C deficiency - Vitamin C 500mg daily. * Muscle spasm - Baclofen 5mg tid prn. * Nutrition - Ensure Plus High 120ml po tidcm, MVI 1 tablet daily. * GERD - Famotidine 20mg daily, Pantoprazole 40mg daily, Sucralfate 1gm tid. * BPH - Finasteride 5mg daily, Tamsulosin 0.4mg qhs. * Edema - Furosemide 40mg bid prn weight gain 3 pounds or more. * Coronary artery disease - Metoprolol 12.5mg id, Imdur 30mg bid, Warfarin 2mg/4mg alternating. * Hypothyroidism - Levothyroxine 50mcg daily. 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 * Allergic rhinitis - Loratadine 10mg daily. * Nausea - Reglan 2.5mg - 5mg q6h prn, Zofran odt 4mg q8h prn. * Vitamin B deficiency - Vitamin B complex 1 capsule bidcm. * Vitamin D deficiency - D3 25mcg daily. * Hypokalemia - KCL 10meq daily. * Skin irritation - Bluegel topical 4x/day prn. Capacity Capacity Assessment Tool Can the patient make a choice & communicate that choice?: Yes Can the patient understand benefits, risks and alternatives?: Yes Can the patient make a logical, rational choice?: Yes Is the choice the patient makes consistent w/ their values?: Yes Is there an impending, emergent risk to the patient?: No Does the patient have an Advance Directive?: No Is there a Surrogate Available?: No i.e. HCPOA: Yes i.e. close relative (spouse, child, parent, sibling)?: Yes
[2023-03-21] MEDS: Creon 24,000 unit DR Capsule 3 CAP PO ×3 (08:15→17:56)
[2023-03-21] MEDS: Ensure Plus High Protein 120 ML LIQUID PO ×3 (08:15→17:57)
[2023-03-21] MEDS: Tamsulosin HCl 0.4 MG Capsule PO (08:16)
[2023-03-21] MEDS: Vitamin B Comp W-C Capsule 1 CAP PO ×2 (08:17→17:57)
[2023-03-21] MEDS: Amiodarone 200 MG Tablet 100 MG PO ×2 (08:17→17:56)
[2023-03-21] MEDS: Potassium Chloride Oral Tablet 10 MEQ PO (08:18)
[2023-03-21] MEDS: Lidocaine 5% Patch 1 PATCH TOPICAL (08:18)
[2023-03-21] MEDS: Ascorbic Acid 500 MG Tablet PO (08:18)
[2023-03-21] MEDS: Ondansetron ODT 4 MG Tablet PO ×2 (09:34→21:14)
[2023-03-21 10:00] VITALS: O2SAT 96
[2023-03-21] MEDS: HYDROmorphone 2 MG TABLET PO ×2 (12:24→21:13)
[2023-03-21] MEDS: Multivitamins,Therapeutic Tablet 1 TABLET PO (12:25)
[2023-03-21 14:00] VITALS: BP 108/63; PULSE 82; RESP 16; TEMP 36.9; O2SAT 97
[2023-03-21] MEDS: Baclofen 10 MG Tablet 5 MG PO (14:30)
--- NOTE | 2023-03-21 16:37 | CASEMGMT ---
Addendum entered by Roya Sarabia 03/21/23 16:49: [facility] sent email to notify [facility] of DC date. Original Note: Social Work IDT set DC date for 03/26. If surgery prohibits pt from DCing home at that time, the date can be postponed. [facility] spoke with pt and and pt agreeable. SW offered HHC. Pt agreed and requesting [facility] whom he used prior. SW sent referra via [facility]. [facility] also sent referral to [facility] for [facility]. Sister to transport home. Plan: DC home alone 03/26, [facility] PT/OT/SN, BSC Roya Sarabia ,BOLT THREADER WINDING RACK OPERATOR
[2023-03-21 17:58] VITALS: PULSE 82
--- NOTE | 2023-03-21 19:10 | DS.PCM_ITS ---
Providers Date of Admission: 02/21/23 Primary Care Physician: Dr. César Chinchilla MD Reason For Visit: INTRACTABLE LOWER BACK Diagnosis Discharge Diagnosis (1) Debility: Status: Acute Code(s): R53.81 - Other malaise (2) Intractable low back pain: Status: Acute Code(s): M54.59 - Other low back pain (3) Acute kidney injury: Status: Acute Code(s): N17.9 - Acute kidney failure, unspecified (4) Chronic kidney disease, stage 3b: Status: Acute Code(s): N18.32 - Chronic kidney disease, stage 3b (5) BPH (benign prostatic hyperplasia): Status: Acute Code(s): N40.0 - Benign prostatic hyperplasia without lower urinary tract symptoms (6) Osteoporosis: Status: Acute Code(s): M81.0 - Age-related osteoporosis without current pathological fracture (7) Coronary artery disease: Status: Acute Code(s): I25.10 - Atherosclerotic heart disease of [place] coronary artery without angina pectoris (8) Atrial fibrillation: Status: Acute Code(s): I48.91 - Unspecified atrial fibrillation (9) GERD (gastroesophageal reflux disease): Status: Acute Code(s): K21.9 - Gastro-esophageal reflux disease without esophagitis (10) Iron deficiency anemia: Status: Acute Code(s): D50.9 - Iron deficiency anemia, unspecified Plan 82 year old male with below past medical history significant for resolving diverticulitis, hospitalized for intractable low back pain, complicated by acute kidney injury, admitted to TCU with debility, here for rehabilitation, strengthening, prior to discharge home alone. * Debility - PT/OT. * Dysphagia - ST. * Pain - Tylenol 1000mg q6h prn pain (1-3), Dilaudid 1-2mg q6h prn pain (4-10), Lidoderm patch td daily. * Bowel - Miralax 17gm daily, Senokot 1 tablet bid prn, senna/colace 2 tablets bid, Dulcolax 10mg pr x 1 prn. * Adult immunization - Administer pneumonia vaccine, covid19 vaccine, flu vaccine as appropriate. * DVT prophylaxis - on warfarin. * Atrial fibrillation - Metoprolol 12.5mg bid, Diltiazem 120mg bid, Amiodarone 100mg bidcm, Warfarin 3.5mg. * Vitamin C deficiency - Vitamin C 500mg daily. * Muscle spasm - Baclofen 5mg tid prn. * Nutrition - Ensure Plus High 120ml po tidcm, MVI 1 tablet daily. * GERD - Famotidine 20mg daily, Pantoprazole 40mg daily, Sucralfate 1gm tid. * BPH - Finasteride 5mg daily, Tamsulosin 0.4mg qhs. * Edema - Furosemide 40mg bid prn weight gain 3 pounds or more. * Coronary artery disease - Metoprolol 12.5mg id, Imdur 30mg bid, Warfarin 2mg/4mg alternating. * Hypothyroidism - Levothyroxine 50mcg daily. 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 * Allergic rhinitis - Loratadine 10mg daily. * Nausea - Reglan 2.5mg - 5mg q6h prn, Zofran odt 4mg q8h prn. * Vitamin B deficiency - Vitamin B complex 1 capsule bidcm. * Vitamin D deficiency - D3 25mcg daily. * Hypokalemia - KCL 10meq daily. * Skin irritation - Bluegel topical 4x/day prn. Medications at Discharge Home Medications denosumab 60 mg/mL subcutaneous syringe (Prolia) 60 mg SQ .[id number] BONES 12/09/20 tamsulosin 0.4 mg capsule 0.4 mg PO QHS bladder 11/18/21 levothyroxine 25 mcg tablet 50 mcg PO DAILY thyroid 02/17/22 baclofen 5 mg tablet 5 mg PO TID PRN muscle spasms 05/01/22 coenzyme Q10 100 mg capsule (Co Q-10) 100 mg PO DAILY supplement 05/01/22 vitamin B complex 1 cap PO BID supplement 05/01/22 acetaminophen 500 mg capsule 1,000 mg PO Q6H PRN Pain 06/15/22 linaclotide 72 mcg capsule (Linzess) 72 mcg PO DAILY PRN Diarrhea 06/15/22 ascorbic acid (vitamin C) 500 mg tablet 500 mg PO DAILY supplement 07/20/22 finasteride 5 mg tablet 5 mg PO DAILY prostate 08/05/22 multivitamin 1 tab PO DAILY supplement 08/16/22 furosemide 40 mg tablet 40 mg PO BID PRN Weight Gain 11/25/22 diltiazem HCl 120 mg capsule,extended release 24 hr 120 mg PO BID heart #60 caps 11/30/22 warfarin 2 mg tablet See Rx Instructions .Route .COMPLEX blood thinner #30 tabs 02/16/23 cholecalciferol (vitamin D3) 25 mcg (1,000 unit) capsule (Vitamin D3) 1,000 unit PO DAILY supplement 02/19/23 isosorbide mononitrate 30 mg tablet,extended release 24 hr 30 mg PO BID heart 02/19/23 polyethylene glycol 3350 17 gram oral powder packet 17 g PO DAILY constipation 02/19/23 vitamin A 7,500 mcg (25,000 unit) capsule 25,000 unit PO DAILY supplement 02/19/23 amiodarone 100 mg tablet 100 mg PO BID heart 02/21/23 famotidine 40 mg tablet 40 mg PO DAILY stomach 02/21/23 fddtni-ymhgutey-nicshal 36,000-114,000-180,000 unit capsule,delay rel (Creon) See Rx Instructions PO .COMPLEX digestion 02/21/23 metoprolol tartrate 25 mg tablet 12.5 mg PO BID heart 02/21/23 potassium chloride 10 mEq tablet,extended release 10 meq PO DAILY supplement 02/21/23 warfarin 4 mg tablet See Rx Instructions .ROUTE .COMPLEX blood thinner 02/21/23 hydromorphone 2 mg tablet 1 - 2 mg (0.5 - 1 x 2 mg) PO Q6H PRN Pain Score 4-10 3 days #12 tabs 03/21/23 ondansetron 4 mg disintegrating tablet 4 mg PO Q8H PRN PRN Nausea And Vomiting 30 days #90 tabs 03/21/23 pantoprazole 40 mg tablet,delayed release 40 mg PO DAILY 30 days #30 tabs 03/21/23 sucralfate 1 gram tablet 1 g PO TID@0700,1100,1600 30 days #90 tabs 03/21/23 Hospital Course Operations None Procedures - (See below.) Summary of Care Provided Minutes Spent on Discharge: 35 Hospital Course: 82 year old male with below past medical history significant for resolving diverticulitis, hospitalized for intractable low back pain, complicated by acute kidney injury, admitted to TCU with debility, here for rehabilitation, strengthening, prior to discharge home alone. 02/25/2023 Dr. Richardson bilateral lumbar facet joint injection L4-L5, L5-S1. 03/22/2023 Dr. Richardson performed ablation procedure. Discharge home alone 03/26/2023, [facility] PT/OT/SN, [facility]. Physical Exam Const alert General Appearance: cooperative HEENT normocephalic Eyes PERRL and EOMs intact bilaterally Neck supple, no JVD and no carotid bruits Resp normal respiratory effort, normal air movement and clear to auscultation bilaterally Cardio regular rate and regular rhythm GI normal to inspection, nondistended, normoactive bowel sounds, non-tender and no n-distended Extremity normal capillary refill General Extremity: Negative for edema Skin no rashes or lesions noted General Skin Exam: no breakdown Psych affect normal Appearance: appropriate Medical Records Data Medical Nutrition Assessment Dietitian: Malnutrition Criteria Met Start: 02/23/23 13:29 Freq: Status: Active Protocol: Document 02/28/23 13:08 ARACELIS (Rec: 02/28/23 13:08 [facility] [id number]) Nutrition Malnutrition Evidence of Malnutrition Exists Yes Malnutrition (severe): Acute Illness/Injury Evidenced By Suboptimal Energy Intake ( Severe),Weight Loss (Severe) Clinical Problem Acute Disease or Injury Related Malnutrition Etiology related to issues w/ pain making it difficult to consume adequate energy/protein Signs/Symptoms as evidenced by 6.7% unintended wt loss and po intake <50% 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 - 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 eating >50% at most meals Status Active Problem Recommendation Dietitian Recommendations/Changes Continue regular no added salt diet - meats cut to bite size pieces Continue 4 oz ensure plus high protein tid w/ medpass Monitor need for additional ONS pending continued po intake and wt trends Weight / BMI Weight Weight: 61.292 kg Body Mass Index (BMI) 20.5 ABG / Lab / Microbiology Data 03/21/23 05:08 03/21/23 05:08 Laboratory: Laboratory Results - last 24 hr 03/21/23 05:08: WBC 13.0 H, RBC 2.96 L, Hgb 10.6 L, Hct 31.9 L, MCV 107.8 H, MCH 35.8 H, MCHC 33.2, RDW Std Deviation 61.9 H, RDW Coeff of Pablo 15.5 H, Plt Count 292, MPV 9.6, Immature Gran % (Auto) 0.800, Neut % (Auto) 84.6 H, Lymph % (Auto) 4.1 L, Stearns % (Auto) 6.2, Eos % (Auto) 3.8, Baso % (Auto) 0.5, Absolute Neuts (auto) 11.0 H, Absolute Lymphs (auto) 0.54 L, Nucleated RBC % 0, Differential Comment SCANNED, PT 19.2 H, INR 1.6, Sodium 141, Potassium 4.0, Chloride 111 H, Carbon Dioxide 26.0, Anion Gap 4 L, BUN 32 H, Creatinine 1.28, Estim Creat Clear Calc 39.24, Est GFR (MDRD) Af Amer 69, Est GFR (MDRD) Non-Af 57 L, BUN/Creatinine Ratio 25.0 H, Glucose 96, Calcium 8.5 D/C Instructions Discharge Diet: No restrictions Discharge Activity: Return to Normal Activity, May Shower and Use Walker Weight Bearing Status: Weight bearing as tolerated Call your doctor if you observe: Fever of 101 or Higher, Inability to urinate, Inability to have a bowel movement, Shortness of breath, Dizziness, Fainting spells, Swelling in the ankles, Chest pain and Uncontrolled pain Additional Instructions: Discharge home alone 03/26/2023, [email or web address] PT/OT/SN, [facility]. Please Follow Up With: Amaury Richardson MD When: As scheduled. Meaningful Use Info Meaningful Use Diagnoses (Choose all that apply): None applicable Discharge Plan Admission Admit Date/Time: 02/21/23 14:35 Primary Reason for Your Visit: Debility. Attending Provider: Marcus Samuel Chi Primary Care Provider: César Chinchilla Instructions Additional Instructions / Restrictions: Discharge home alone 03/26/2023, [email or web address] PT/OT/SN, [facility]. Discharge Orders/Prescriptions Prescriptions: New sucralfate 1 gram Tablet 1 g PO TID@0700,1100,1600 30 Days Qty: 90 0RF hydromorphone 2 mg Tablet 1 - 2 mg PO Q6H PRN (Reason: Pain Score 4-10) 3 Days Qty: 12 0RF pantoprazole 40 mg Tablet,Delayed Release (Dr/Ec) 40 mg PO DAILY 30 Days Qty: 30 0RF ondansetron 4 mg Tablet,Disintegrating 4 mg PO Q8H PRN PRN (Reason: Nausea And Vomiting) 30 Days Qty: 90 0RF Continued tamsulosin 0.4 mg capsule 0.4 mg PO QHS levothyroxine 25 mcg tablet 50 mcg PO DAILY Patient Comments: take 1 tablet by mouth once daily acetaminophen 500 mg capsule 1,000 mg PO Q6H PRN (Reason: Pain) Linzess 72 mcg capsule 72 mcg PO DAILY PRN (Reason: Diarrhea) Hold Instructions: Resume on 02/22/23. Restart on Discharge from [facility] ascorbic acid (vitamin C) 500 mg tablet 500 mg PO DAILY finasteride 5 mg tablet 5 mg PO DAILY Prolia 60 MG/ML syringe 60 mg SQ .[id number] vitamin B complex Capsule 1 cap PO BID coenzyme Q10 [Co Q-10] 100 mg Capsule 100 mg PO DAILY baclofen 5 mg Tablet 5 mg PO TID PRN (Reason: muscle spasms) multivitamin Tablet 1 tab PO DAILY warfarin 2 mg tablet See Rx Instructions .ROUTE .COMPLEX Qty: 30 0RF Protocol: Dose Management Condition: Tuesday Dose/Route: 2 mg Instruction: 1 x 2 mg tablet Condition: Tuesday Dose/Route: 2 mg Instruction: 1 x 2 mg tablet Condition: Tuesday Dose/Route: 2 mg Instruction: 1 x 2 mg tablet Condition: Tuesday Dose/Route: 0 mg Instruction: 0 tablets Condition: Dose/Route: 2 mg Instruction: 1 x 2 mg tablet Condition: Tuesday Dose/Route: 4 mg Instruction: 1 x 4 mg tablet Condition: Tuesday Dose/Route: 2 mg Instruction: 1 x 2 mg tablet Protocol Text: Adjustment Start Date: Tuesday02/16/23 INR Value: 4.5 INR Date: 02/16/23 Recheck Date: 02/21/23 Patient Comments: Adjustment 01/03. Pt to take 2mg Wednesday 01/03, 2mg Thursday 01/04. Retest 01/05. Rx Instructions: 4mg Tue, Tue, Tue. 2mg Tue, , , Tue vitamin A 7,500 mcg (25,000 unit) Capsule 25,000 unit PO DAILY polyethylene glycol 3350 17 gram Powder In Packet 17 g PO DAILY isosorbide mononitrate 30 mg tablet extended release 24 hr 30 mg PO BID cholecalciferol (vitamin D3) [Vitamin D3] 25 mcg (1,000 unit) Capsule 1,000 unit PO DAILY famotidine 40 mg tablet 40 mg PO DAILY potassium chloride 10 mEq tablet extended release 10 meq PO DAILY warfarin 4 mg tablet See Rx Instructions .ROUTE .COMPLEX Protocol: Dose Management Condition: Tuesday Dose/Route: 2 mg Instruction: 1 x 2 mg tablet Condition: Tuesday Dose/Route: 2 mg Instruction: 1 x 2 mg tablet Condition: Tuesday Dose/Route: 2 mg Instruction: 1 x 2 mg tablet Condition: Tuesday Dose/Route: 0 mg Instruction: 0 tablets Condition: Dose/Route: 2 mg Instruction: 1 x 2 mg tablet Condition: Tuesday Dose/Route: 4 mg Instruction: 1 x 4 mg tablet Condition: Tuesday Dose/Route: 2 mg Instruction: 1 x 2 mg tablet Protocol Text: Adjustment Start Date: Tuesday02/16/23 INR Value: 4.5 INR Date: 02/16/23 Recheck Date: 02/21/23 Rx Instructions: 4mg Tue, Tue, Tue. 2mg Tue, , , Tue amiodarone 100 mg tablet 100 mg PO BID metoprolol tartrate 25 mg tablet 12.5 mg PO BID Creon 36,000-114,000- 180,000 unit capsule,delayed release(DR/EC) See Rx Instructions PO .COMPLEX Rx Instructions: take 1-2 with snacks and 2-3 with meals furosemide 40 mg tablet 40 mg PO BID PRN (Reason: Weight Gain) Hold Instructions: Resume on 02/18/23. Rx Instructions: as needed for weight gain of 3# in one day diltiazem HCl 120 mg capsule,extended release 24hr 120 mg PO BID Qty: 60 11RF Discontinued pantoprazole 40 mg Tablet,Delayed Release (Dr/Ec) 40 mg PO DAILY loratadine 10 mg Capsule 10 mg PO DAILY ondansetron HCl 4 mg Tablet 4 mg PO Q8H PRN (Reason: Nausea And Vomiting) lidocaine [Lidocaine Pain Relief] 4 % adhesive patch,medicated 1 patch TOPICAL Q12H hydromorphone 2 mg Tablet 1 - 2 mg PO Q6H PRN (Reason: Pain) metoclopramide HCl 5 mg Tablet 2.5 - 5 mg PO Q6H PRN (Reason: Pain) senna 8.6 mg Capsule 8.6 mg PO BID PRN (Reason: Constipation) sucralfate [Carafate] 1 gram tablet 1 g PO QAC Rx Instructions: take two hours away from other medication. amoxicillin-pot clavulanate 875-125 mg tablet 1 tab PO BID Referrals / Follow Up: Amaury Richardson MD [Med Staff - Active Staff] - 04/11/23 1:30 pm César Chinchilla MD [Primary Care Provider] - Disposition Disposition (needs filled in before D/C Order can be placed): Home Health Service
[2023-03-21 21:10] VITALS: BP 141/78; PULSE 98
[2023-03-22 06:00] VITALS: BMI 20.3
[2023-03-22 09:00] VITALS: BMI 20.4
--- NOTE | 2023-03-22 10:19 | NURSING ---
PT LEFT FLOOR BY WHEEL CHAIR TO OFFICE FOR PROCEDURE.
--- NOTE | 2023-03-22 12:50 | NURSING ---
pt returned to floor from procedure at office.
[2023-03-22] MEDS: Sucralfate 1 GM Tablet PO ×2 (12:58→16:40)
[2023-03-22 13:13] VITALS: BP 140/80; PULSE 96
[2023-03-22] MEDS: Senna/Docusate Sodium 1 Tablet 2 TABLET PO (13:21)
[2023-03-22] MEDS: Famotidine 20 MG Tablet PO (13:21)
[2023-03-22] MEDS: Pantoprazole Sodium 40 MG Tablet PO (13:21)
[2023-03-22] MEDS: Cholecalciferol (VIT D3) 25 MCG TABLET (1,000 UNITS) PO (13:21)
[2023-03-22] MEDS: Loratadine 10 MG Tablet PO (13:22)
[2023-03-22] MEDS: Finasteride 5 MG Tablet PO (13:22)
[2023-03-22] MEDS: Multivitamins,Therapeutic Tablet 1 TABLET PO (13:23)
[2023-03-22] MEDS: Creon 24,000 unit DR Capsule 3 CAP PO ×2 (13:23→17:36)
[2023-03-22] MEDS: Levothyroxine 25 MCG TABLET 50 MCG PO (13:24)
[2023-03-22] MEDS: Vitamin B Comp W-C Capsule 1 CAP PO ×2 (13:25→17:35)
[2023-03-22] MEDS: Potassium Chloride Oral Tablet 10 MEQ PO (13:26)
[2023-03-22] MEDS: Polyethylene Glycol 3350 17 GM PACKET PO (13:26)
[2023-03-22] MEDS: Ascorbic Acid 500 MG Tablet PO (13:26)
[2023-03-22] MEDS: Tamsulosin HCl 0.4 MG Capsule PO (13:27)
[2023-03-22] MEDS: Ensure Plus High Protein 120 ML LIQUID PO ×2 (13:31→17:38)
[2023-03-22 14:00] VITALS: BP 107/63; PULSE 95; RESP 16; TEMP 36.9; O2SAT 93
[2023-03-22] MEDS: dilTIAZem CD 120 MG Capsule PO (17:35)
[2023-03-22] MEDS: Amiodarone 200 MG Tablet 100 MG PO (17:35)
[2023-03-22] MEDS: Isosorbide Mononitrate 30 MG Tablet PO (17:35)
[2023-03-22 17:36] VITALS: BP 107/63; PULSE 95
[2023-03-22] MEDS: Metoprolol Tartrate 25 MG Tablet 12.5 MG PO (17:36)
[2023-03-22] MEDS: Ondansetron ODT 4 MG Tablet PO (22:11)
[2023-03-22] MEDS: HYDROmorphone 2 MG TABLET PO (22:11)
[2023-03-22] MEDS: MENTHOL 226.8 GM JAR 1 APPLIC TOPICAL (22:12)
[2023-03-22 22:19] VITALS: BP 128/79; PULSE 95; RESP 16
[2023-03-23 05:02] VITALS: BMI 20.3
[2023-03-23 05:37] VITALS: BP 117/78; PULSE 98
[2023-03-23] MEDS: Metoprolol Tartrate 25 MG Tablet 12.5 MG PO ×2 (05:37→17:05)
[2023-03-23] MEDS: Finasteride 5 MG Tablet PO (05:37)
[2023-03-23] MEDS: dilTIAZem CD 120 MG Capsule PO ×2 (05:38→17:05)
[2023-03-23] MEDS: Pantoprazole Sodium 40 MG Tablet PO (05:38)
[2023-03-23] MEDS: Cholecalciferol (VIT D3) 25 MCG TABLET (1,000 UNITS) PO (05:38)
[2023-03-23] MEDS: Famotidine 20 MG Tablet PO (05:38)
[2023-03-23] MEDS: Loratadine 10 MG Tablet PO (05:38)
[2023-03-23] MEDS: Isosorbide Mononitrate 30 MG Tablet PO ×2 (05:38→17:07)
[2023-03-23] MEDS: Levothyroxine 25 MCG TABLET 50 MCG PO (05:38)
[2023-03-23] MEDS: Sucralfate 1 GM Tablet PO ×3 (06:49→17:05)
[2023-03-23] MEDS: Creon 24,000 unit DR Capsule 3 CAP PO ×3 (08:22→17:04)
[2023-03-23] MEDS: Ensure Plus High Protein 120 ML LIQUID PO ×3 (08:22→17:05)
[2023-03-23] MEDS: Lidocaine 5% Patch 1 PATCH TOPICAL (08:23)
[2023-03-23] MEDS: Tamsulosin HCl 0.4 MG Capsule PO (08:23)
[2023-03-23] MEDS: Vitamin B Comp W-C Capsule 1 CAP PO ×2 (08:23→17:04)
[2023-03-23] MEDS: Potassium Chloride Oral Tablet 10 MEQ PO (08:23)
[2023-03-23] MEDS: Amiodarone 200 MG Tablet 100 MG PO ×2 (08:23→17:04)
[2023-03-23] MEDS: Ascorbic Acid 500 MG Tablet PO (08:24)
[2023-03-23] MEDS: Polyethylene Glycol 3350 17 GM PACKET PO (08:24)
--- NOTE | 2023-03-23 08:31 | NURSING ---
3 bandages removed from radiofrequency ablation sites from 03/22/2023 w/ Dr. Richardson. Small blood noted. No open areas. Patient denies pain. Lidocaine patch applied.
[2023-03-23 09:46] VITALS: O2SAT 95
[2023-03-23] MEDS: Multivitamins,Therapeutic Tablet 1 TABLET PO (13:17)
[2023-03-23] MEDS: HYDROmorphone 2 MG TABLET PO (13:21)
[2023-03-23 13:23] VITALS: BP 130/78; PULSE 94; RESP 16; TEMP 36.7; O2SAT 98
[2023-03-23] MEDS: Warfarin 0.5 MG, Warfarin 3 MG 3.5 MG PO (17:03)
[2023-03-23 17:05] VITALS: PULSE 94
[2023-03-23] MEDS: Senna/Docusate Sodium 1 Tablet 2 TABLET PO (17:06)
[2023-03-24] MEDS: Baclofen 10 MG Tablet 5 MG PO (00:28)
[2023-03-24 05:42] VITALS: BMI 20.5
[2023-03-24] MEDS: Sucralfate 1 GM Tablet PO ×3 (05:42→16:56)
[2023-03-24] MEDS: Levothyroxine 25 MCG TABLET 50 MCG PO (05:42)
[2023-03-24] MEDS: Senna/Docusate Sodium 1 Tablet 2 TABLET PO ×2 (05:42→17:33)
[2023-03-24 05:43] VITALS: BP 146/87; PULSE 95
[2023-03-24] MEDS: Famotidine 20 MG Tablet PO (05:43)
[2023-03-24] MEDS: Cholecalciferol (VIT D3) 25 MCG TABLET (1,000 UNITS) PO (05:43)
[2023-03-24] MEDS: Metoprolol Tartrate 25 MG Tablet 12.5 MG PO ×2 (05:43→17:33)
[2023-03-24] MEDS: Finasteride 5 MG Tablet PO (05:43)
[2023-03-24] MEDS: Loratadine 10 MG Tablet PO (05:43)
[2023-03-24] MEDS: Pantoprazole Sodium 40 MG Tablet PO (05:43)
[2023-03-24] MEDS: Isosorbide Mononitrate 30 MG Tablet PO ×2 (05:43→17:34)
[2023-03-24] MEDS: dilTIAZem CD 120 MG Capsule PO ×2 (05:44→17:34)
[2023-03-24 06:14] LABS: International Normalized Ratio 1.4
[2023-03-24] MEDS: Ascorbic Acid 500 MG Tablet PO (08:23)
[2023-03-24] MEDS: Creon 24,000 unit DR Capsule 3 CAP PO ×3 (08:23→17:29)
[2023-03-24] MEDS: Vitamin B Comp W-C Capsule 1 CAP PO ×2 (08:23→17:30)
[2023-03-24] MEDS: Tamsulosin HCl 0.4 MG Capsule PO (08:23)
[2023-03-24] MEDS: Polyethylene Glycol 3350 17 GM PACKET PO (08:23)
[2023-03-24] MEDS: Amiodarone 200 MG Tablet 100 MG PO ×2 (08:24→17:30)
[2023-03-24] MEDS: Potassium Chloride Oral Tablet 10 MEQ PO (08:24)
[2023-03-24] MEDS: Ensure Plus High Protein 120 ML LIQUID PO ×3 (08:27→17:39)
[2023-03-24 08:48] VITALS: BP 137/78; PULSE 91
[2023-03-24] MEDS: Lidocaine 5% Patch 1 PATCH TOPICAL (09:44)
[2023-03-24 10:00] VITALS: PULSE 97; RESP 18; O2SAT 93
--- NOTE | 2023-03-24 13:30 | MDS.RN ---
Pain interview for MDS completed.
[2023-03-24] MEDS: Multivitamins,Therapeutic Tablet 1 TABLET PO (13:38)
[2023-03-24 14:00] VITALS: BP 133/80; PULSE 96; RESP 16; TEMP 36.8; O2SAT 92
[2023-03-24] MEDS: Warfarin 0.5 MG, Warfarin 3 MG 3.5 MG PO (17:31)
[2023-03-24 17:33] VITALS: BP 133/80; PULSE 96
[2023-03-24] MEDS: HYDROmorphone 2 MG TABLET PO (17:37)
[2023-03-24 20:00] VITALS: PULSE 98; O2SAT 93
[2023-03-25] MEDS: MENTHOL 226.8 GM JAR 1 APPLIC TOPICAL (02:02)
[2023-03-25] MEDS: Ondansetron ODT 4 MG Tablet PO (05:20)
[2023-03-25] MEDS: Isosorbide Mononitrate 30 MG Tablet PO ×2 (06:36→18:02)
[2023-03-25 06:37] VITALS: BP 145/100; PULSE 96
[2023-03-25] MEDS: Metoprolol Tartrate 25 MG Tablet 12.5 MG PO ×2 (06:37→18:02)
[2023-03-25] MEDS: Cholecalciferol (VIT D3) 25 MCG TABLET (1,000 UNITS) PO (06:37)
[2023-03-25] MEDS: Levothyroxine 25 MCG TABLET 50 MCG PO (06:37)
[2023-03-25] MEDS: Famotidine 20 MG Tablet PO (06:38)
[2023-03-25] MEDS: dilTIAZem CD 120 MG Capsule PO ×2 (06:38→18:01)
[2023-03-25] MEDS: Finasteride 5 MG Tablet PO (06:38)
[2023-03-25] MEDS: Senna/Docusate Sodium 1 Tablet 2 TABLET PO ×2 (06:38→18:03)
[2023-03-25] MEDS: Loratadine 10 MG Tablet PO (06:38)
[2023-03-25] MEDS: Pantoprazole Sodium 40 MG Tablet PO (06:39)
[2023-03-25] MEDS: Sucralfate 1 GM Tablet PO ×3 (06:39→17:06)
[2023-03-25] MEDS: Creon 24,000 unit DR Capsule 3 CAP PO ×3 (08:44→17:59)
[2023-03-25] MEDS: Vitamin B Comp W-C Capsule 1 CAP PO ×2 (08:45→18:00)
[2023-03-25] MEDS: Potassium Chloride Oral Tablet 10 MEQ PO (08:45)
[2023-03-25] MEDS: Ascorbic Acid 500 MG Tablet PO (08:45)
[2023-03-25] MEDS: Tamsulosin HCl 0.4 MG Capsule PO (08:46)
[2023-03-25] MEDS: Amiodarone 200 MG Tablet 100 MG PO ×2 (08:46→18:01)
[2023-03-25 08:50] VITALS: BP 132/82; PULSE 86
[2023-03-25] MEDS: Lidocaine 5% Patch 1 PATCH TOPICAL (10:24)
--- NOTE | 2023-03-25 10:38 | CASEMGMT ---
Social Work Brief interview for mental status (BIMS) and resident mood interview (PHQ-9) completed on this day. BIMS score . PHQ-9 score 11/22. Serina MAGALLON, KARSONS
[2023-03-25] MEDS: Multivitamins,Therapeutic Tablet 1 TABLET PO (11:52)
[2023-03-25 14:00] VITALS: BP 123/70; PULSE 97; RESP 15; TEMP 36.4; O2SAT 90
--- NOTE | 2023-03-25 14:53 | CASEMGMT ---
Social Work Per OT, patient requesting for a meals on wheels consult. This social work coordinator met with patient in room and provided patient with information on MOW's. Patient is agreeable to this social work coordinator making a referral. This social work coordinator making a referral for MOW's via on-line portal. Serina MAGALLON, KARSONS
[2023-03-25] MEDS: Warfarin 0.5 MG, Warfarin 3 MG 3.5 MG PO (17:59)
[2023-03-25 18:02] VITALS: BP 123/70; PULSE 97
[2023-03-25] MEDS: Ensure Plus High Protein 120 ML LIQUID PO (18:05)
[2023-03-25] MEDS: Acetaminophen 500 MG Tablet 1000 MG PO (21:59)
[2023-03-25] MEDS: HYDROmorphone 2 MG TABLET PO (21:59)
[2023-03-26 05:11] VITALS: BMI 20.5
[2023-03-26] MEDS: MENTHOL 226.8 GM JAR 1 APPLIC TOPICAL (06:00)
[2023-03-26] MEDS: HYDROmorphone 2 MG TABLET PO ×2 (06:03→14:15)
[2023-03-26] MEDS: Senna/Docusate Sodium 1 Tablet 2 TABLET PO (06:04)
[2023-03-26] MEDS: Loratadine 10 MG Tablet PO (06:04)
[2023-03-26] MEDS: dilTIAZem CD 120 MG Capsule PO (06:04)
[2023-03-26] MEDS: Isosorbide Mononitrate 30 MG Tablet PO (06:04)
[2023-03-26 06:05] VITALS: BP 147/98; PULSE 93
[2023-03-26] MEDS: Levothyroxine 25 MCG TABLET 50 MCG PO (06:05)
[2023-03-26] MEDS: Sucralfate 1 GM Tablet PO ×2 (06:05→11:23)
[2023-03-26] MEDS: Pantoprazole Sodium 40 MG Tablet PO (06:05)
[2023-03-26] MEDS: Finasteride 5 MG Tablet PO (06:05)
[2023-03-26] MEDS: Metoprolol Tartrate 25 MG Tablet 12.5 MG PO (06:05)
[2023-03-26] MEDS: Cholecalciferol (VIT D3) 25 MCG TABLET (1,000 UNITS) PO (06:05)
[2023-03-26] MEDS: Famotidine 20 MG Tablet PO (06:07)
[2023-03-26] MEDS: Ensure Plus High Protein 120 ML LIQUID PO ×2 (06:08→12:43)
[2023-03-26] MEDS: Vitamin B Comp W-C Capsule 1 CAP PO (08:46)
[2023-03-26] MEDS: Amiodarone 200 MG Tablet 100 MG PO (08:46)
[2023-03-26] MEDS: Tamsulosin HCl 0.4 MG Capsule PO (08:46)
[2023-03-26] MEDS: Creon 24,000 unit DR Capsule 3 CAP PO ×2 (08:46→12:43)
[2023-03-26] MEDS: Potassium Chloride Oral Tablet 10 MEQ PO (08:46)
[2023-03-26] MEDS: Ascorbic Acid 500 MG Tablet PO (08:46)
[2023-03-26 09:25] VITALS: PULSE 89; RESP 18; O2SAT 91
[2023-03-26] MEDS: Lidocaine 5% Patch 1 PATCH TOPICAL (11:23)
[2023-03-26] MEDS: Multivitamins,Therapeutic Tablet 1 TABLET PO (12:43)
[2023-03-26 14:49] VITALS: BP 122/79; PULSE 96; RESP 18; TEMP 36.1; O2SAT 98
== END 2023-03-26 14:52 | disposition home health service (06) | DRG 392 ==
PROVIDERS: Anesthesiology Pain Medicine; Internal Medicine; Admitting Provider Family Medicine Geriatric Medicine; PCP Family Medicine; Visit Provider Family Medicine Geriatric Medicine
DX: K57.92 Diverticulitis of intestine, part unspecified, without perforation or abscess without bleeding (principal); N17.9 Acute kidney failure, unspecified; I13.0 Hypertensive heart and chronic kidney disease with heart failure and stage 1 through stage 4 chronic kidney disease, or unspecified chronic kidney disease; I50.32 Chronic diastolic (congestive) heart failure; I27.21 Secondary pulmonary arterial hypertension; K86.89 Other specified diseases of pancreas; N18.32 Chronic kidney disease, stage 3b; I48.0 Paroxysmal atrial fibrillation; E55.9 Vitamin D deficiency, unspecified; J30.9 Allergic rhinitis, unspecified; I25.10 Atherosclerotic heart disease of native coronary artery without angina pectoris; K21.9 Gastro-esophageal reflux disease without esophagitis; E78.5 Hyperlipidemia, unspecified; E53.9 Vitamin B deficiency, unspecified; E03.9 Hypothyroidism, unspecified; E87.6 Hypokalemia; M54.50 Low back pain, unspecified; N40.0 Benign prostatic hyperplasia without lower urinary tract symptoms; Z79.899 Other long term (current) drug therapy; G89.29 Other chronic pain; Z79.01 Long term (current) use of anticoagulants; Z79.890 Hormone replacement therapy
CPT/HCPCS: 36415; 64483; 71046; 74018; 77003; 80048; 82306; 84145; 85025; 85610; 85652; 86140; 92507; 92523; 92526; 92610; 94667; 94668; 97035; 97110; 97112; 97116; 97129; 97130; 97162; 97166; 97530; 97535; 97802

== ENCOUNTER 2023-02-25 12:09 | Day surgery (SDC) | payer MEDICARE, OTHER, SELFPAY ==
[2023-02-25] VITALS (8 sets, daily range): BP systolic 111–140; BP diastolic 71–80; PULSE 84–95; RESP 12–18; TEMP 36.6–37.5; O2SAT 97–103
[2023-02-25] MEDS: Lactated Ringers 1,000 ML 15 ML IV (12:15)
[2023-02-25] MEDS: Triamcinolone Acetonide 40 MG/ML Vial ×2 (13:00)
== END 2023-02-25 14:25 | disposition home or self-care (01) ==
LOC: SDC 12:11 → AC 12:12
PROVIDERS: PCP Family Medicine; Referring Provider Anesthesiology Pain Medicine; Visit Provider Anesthesiology Pain Medicine
PROC: 3E0T3BZ Introduction of Anesthetic Agent into Peripheral Nerves and Plexi, Percutaneous Approach (ICD-10-PCS; CPT 64493; principal; 2023-02-25 15:00)
DX: M47.816 Spondylosis without myelopathy or radiculopathy, lumbar region (principal); M96.1 Postlaminectomy syndrome, not elsewhere classified
CPT/HCPCS: 64493; 64494; J7120; J2405

== ENCOUNTER → 2023-03-31 | Outpatient (CLI) | payer MEDICARE, OTHER, SELFPAY ==
[2023-03-31 12:13] LABS: Absolute Lymphocyte Count 0.48 X10^3/uL (0.83-4.51); Absolute Neutrophil Count 12.7 X10^3/uL (2.0-7.7); Basophil# 0.05 X10^3/uL; Basophil% 0.3 % (0-1); Eosinophil# 0.09 X10^3/uL; Eosinophils% 0.6 % (0-5); Hematocrit 34.4 % (40-54); Lymphocyte # 0.48 X10^3/ul (0.83-4.51); Lymphocyte % 3.3 % (19-41); Mean Corpuscular Hgb 34.9 pg (27.0-32.0); Mean Corpuscular Volume 109.2 fL (80-94); Monocyte# 0.94 X10^3/uL; Monocyte% 6.5 % (0-10); NRBC Flagged by Analyzer 0 % (0-5); Neutrophil # 12.65 X10^3/uL (2.7-7.7); Neutrophil % 88.2 % (47-70); POSITIVE DIFFERENTIAL YES; Platelet Count 366 K/mm3 (150-450); RBC Distribution Width CV 15.7 % (11.6-14.6); RBC Distribution Width SD 62.7 fl (35.1-43.9); Red Blood Count 3.15 M/mm3 (4.6-6.2); White Blood Count 14.4 K/mm3 (4.4-11.0)
[2023-03-31 12:14] LABS: Differential Indicated SCAN CRITERIA MET
[2023-03-31 12:20] LABS: International Normalized Ratio 1.7; Prothrombin Time (Protime)PT. 20.4 SECONDS (11.7-14.9)
[2023-03-31 12:55] LABS: ALB/GLOB Ratio 0.6 RATIO (0.9-2.4); AST(SGOT) 41 U/L (15-37); Alanine Aminotransfer ALT/SGPT 102 U/L (16-61); Albumin, Serum 2.7 g/dL (3.2-5.0); Alkaline Phosphatase 79 U/L (45-117); Anion Gap 9 (5-15); BUN 43 mg/dL (7-18); Calcium,Total 8.5 mg/dL (8.5-10.1); Chloride 109 mmol/L (98-107); Creatinine, Serum 2.05 mg/dL (0.70-1.30); EST Glomerular Filtration Rate 33 mL/min (>60); Est Glom Filt Rate - Afr Amer 40 mL/min (>60); Globulin 4.4 g/dL (2.2-4.2); Glucose 135 mg/dL (74-106); Potassium 4.1 mmol/L (3.5-5.1); Protein, Total 7.1 g/dL (6.4-8.2); Sodium Level 143 mmol/L (136-145); Thyroid Stim Hormone (TSH) 3.39 uIU/mL (0.358-3.74)
== END | disposition home or self-care (01) ==
LOC: MFPLAB 09:49
PROVIDERS: PCP Family Medicine; Visit Provider Family Medicine
DX: M81.0 Age-related osteoporosis without current pathological fracture (principal); Z79.899 Other long term (current) drug therapy; M54.9 Dorsalgia, unspecified; Z51.81 Encounter for therapeutic drug level monitoring; K59.00 Constipation, unspecified; E03.8 Other specified hypothyroidism; Z79.01 Long term (current) use of anticoagulants
CPT/HCPCS: 36415; 80053; 84443; 85025; 85610

== ENCOUNTER 2023-04-26 10:11 | Outpatient (RCR) | payer MEDICARE, OTHER, SELFPAY ==
[2023-04-26 10:34] LABS: International Normalized Ratio 1.2; Prothrombin Time (Protime)PT. 15.1 SECONDS (11.7-14.9)
== END 2023-04-26 18:00 | disposition home or self-care (01) ==
LOC: LAB 10:11
PROVIDERS: PCP Family Medicine; Referring Provider Internal Medicine Cardiovascular Disease; Visit Provider Internal Medicine Cardiovascular Disease
DX: Z79.01 Long term (current) use of anticoagulants; I48.0 Paroxysmal atrial fibrillation
CPT/HCPCS: 36415; 85610

== ENCOUNTER 2023-05-05 11:07 | Outpatient (RCR) | payer MEDICARE, OTHER, SELFPAY ==
[2023-05-05 12:08] LABS: Absolute Lymphocyte Count 0.42 X10^3/uL (0.83-4.51); Absolute Neutrophil Count 11.9 X10^3/uL (2.0-7.7); Basophil# 0.05 X10^3/uL; Basophil% 0.4 % (0-1); Eosinophil# 0.03 X10^3/uL; Eosinophils% 0.2 % (0-5); Hemoglobin 11.4 g/dL (13.0-16.5); Lymphocyte # 0.42 X10^3/ul (0.83-4.51); Lymphocyte % 3.1 % (19-41); Mean Corp Hgb Conc 31.7 g/dL (32-36); Mean Corpuscular Hgb 33.3 pg (27.0-32.0); Mean Corpuscular Volume 105.3 fL (80-94); Mean Platelet Vol. 10.4 fl (6.2-12.0); Monocyte# 1.08 X10^3/uL; Monocyte% 7.9 % (0-10); NRBC Flagged by Analyzer 0 % (0-5); Neutrophil # 11.87 X10^3/uL (2.7-7.7); Neutrophil % 87.2 % (47-70); POSITIVE DIFFERENTIAL YES; Platelet Count 324 K/mm3 (150-450); RBC Distribution Width CV 16.2 % (11.6-14.6); RBC Distribution Width SD 62.2 fl (35.1-43.9); Red Blood Count 3.42 M/mm3 (4.6-6.2); White Blood Count 13.6 K/mm3 (4.4-11.0)
[2023-05-05 12:17] LABS: International Normalized Ratio 1.2; Prothrombin Time (Protime)PT. 15.3 SECONDS (11.7-14.9)
[2023-05-05 12:17] LABS: Differential Indicated SCAN CRITERIA MET
[2023-05-05 12:37] LABS: Differential Comment SCANNED
[2023-05-05 12:43] LABS: Anion Gap 5 (5-15); BUN 41 mg/dL (7-18); BUN/Creat Ratio 27.5 RATIO (10-20); Calcium,Total 8.7 mg/dL (8.5-10.1); Chloride 110 mmol/L (98-107); Creatinine, Serum 1.49 mg/dL (0.70-1.30); EST Glomerular Filtration Rate 48 mL/min (>60); Est Glom Filt Rate - Afr Amer 58 mL/min (>60); Glucose 96 mg/dL (74-106); Potassium 3.7 mmol/L (3.5-5.1); Sodium Level 140 mmol/L (136-145)
[2023-05-05 12:45] LABS: BNP,B-Type NATRIURETIC PEPTIDE 1418.6 pg/mL (0-100)
== END 2023-05-05 18:00 | disposition home or self-care (01) ==
LOC: LAB 11:07
PROVIDERS: Nurse Practitioner Family; PCP Family Medicine; Referring Provider Internal Medicine Cardiovascular Disease; Visit Provider Internal Medicine Cardiovascular Disease
DX: Z79.01 Long term (current) use of anticoagulants; I48.0 Paroxysmal atrial fibrillation
CPT/HCPCS: 36415; 80048; 83880; 85025; 85610

== ENCOUNTER 2023-05-07 09:17 | Emergency (ER) | payer MEDICARE, OTHER, SELFPAY ==
[2023-05-07 09:19] VITALS: BP 144/96; PULSE 107; RESP 16; TEMP 36.7; O2SAT 95; BMI 20.7
--- NOTE | 2023-05-07 09:29 | EX.ED.DYSGE1 ---
HPI History of Present Illness Chief Complaint: Constipation Informant: patient Narrative Narrative: Patient presents secondary to abdominal pain and constipation. He states has been getting injections in his back and is on Dilaudid. Because of this he gets constipation. He states he has not had a bowel movement in last 4 days and feel like he needs to go. He was passing gas as of yesterday. [facility] Medical History Acute constipation Acute exacerbation of chronic low back pain Acute gastrointestinal bleeding Acute kidney injury superimposed on chronic kidney disease Ambulates with cane Anemia Arthritis Atherosclerotic heart disease of [place] coronary artery without angina pectoris Atrial fibrillation Atypical atrial flutter (12/2020) Back pain Benign prostatic hyperplasia BPH (benign prostatic hyperplasia) Cancer Cardiology follow-up encounter Chronic anemia Chronic heart failure with preserved ejection fraction (HFpEF) Chronic kidney disease Chronic renal insufficiency Colitis CPAP (continuous positive airway pressure) dependence Debility Diarrhea Difficulty chewing Dysphagia Easy bruising Elevated LFTs Elevated liver enzymes Essential (primary) hypertension Excessive bleeding Gastric reflux GI bleed (2012) High cholesterol History of colon polyps History of diverticulitis History of echocardiogram History of edema History of heart attack History of hyperthyroidism History of leukemia History of pain when walking History of renal disease History of stress test HLD (hyperlipidemia) Kidney disease Kidney stones Myocardial infarct Nausea and vomiting Non-rheumatic tricuspid valve insufficiency Non-smoker Nonrheumatic mitral (valve) insufficiency 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 Osteoarthritis Paroxysmal atrial fibrillation Secondary pulmonary arterial hypertension Sleep apnea Sleep apnea Stage 3b chronic kidney disease Thoracic aortic aneurysm (TAA) Thyroid disease Wears glasses Home Medications denosumab 60 mg/mL subcutaneous syringe (Prolia) 60 mg SQ .[id number] BONES 12/09/20 [History Last Taken 11/10/22] tamsulosin 0.4 mg capsule 0.4 mg PO QHS bladder 11/18/21 [History Last Taken 02/12/23] levothyroxine 25 mcg tablet 50 mcg PO DAILY thyroid 02/17/22 [History Last Taken 02/12/23] baclofen 5 mg tablet 5 mg PO TID PRN muscle spasms 05/01/22 [History Last Taken Unknown] coenzyme Q10 100 mg capsule (Co Q-10) 100 mg PO DAILY supplement 05/01/22 [History Last Taken 02/12/23] vitamin B complex 1 cap PO BID supplement 05/01/22 [History Last Taken 02/12/23] acetaminophen 500 mg capsule 1,000 mg PO Q6H PRN Pain 06/15/22 [History Last Taken Unknown] linaclotide 72 mcg capsule (Linzess) 72 mcg PO DAILY PRN Diarrhea 06/15/22 [History Last Taken Unknown] ascorbic acid (vitamin C) 500 mg tablet 500 mg PO DAILY supplement 07/20/22 [History Last Taken 02/12/23] finasteride 5 mg tablet 5 mg PO DAILY prostate 08/05/22 [History Last Taken 02/12/23] multivitamin 1 tab PO DAILY supplement 08/16/22 [History Last Taken 02/12/23] furosemide 40 mg tablet 40 mg PO BID PRN Weight Gain 11/25/22 [History Last Taken Unknown] diltiazem HCl 120 mg capsule,extended release 24 hr 120 mg PO BID heart #60 caps 11/30/22 [Rx Last Taken 02/12/23] warfarin 2 mg tablet See Rx Instructions .Route .COMPLEX blood thinner #30 tabs 02/16/23 [Rx Last Taken 02/12/23] cholecalciferol (vitamin D3) 25 mcg (1,000 unit) capsule (Vitamin D3) 1,000 unit PO DAILY supplement 02/19/23 [History Last Taken Unknown] isosorbide mononitrate 30 mg tablet,extended release 24 hr 30 mg PO BID heart 02/19/23 [History Last Taken Unknown] polyethylene glycol 3350 17 gram oral powder packet 17 g PO DAILY constipation 02/19/23 [History Last Taken Unknown] vitamin A 7,500 mcg (25,000 unit) capsule 25,000 unit PO DAILY supplement 02/19/23 [History Last Taken Unknown] amiodarone 100 mg tablet 100 mg PO BID heart 02/21/23 [History Last Taken Unknown] [id number] 36,000-114,000-180,000 unit capsule,delay rel (Creon) See Rx Instructions PO .COMPLEX digestion 02/21/23 [History Last Taken Unknown] warfarin 4 mg tablet See Rx Instructions .Route .COMPLEX blood thinner 02/21/23 [History Last Taken Unknown] hydromorphone 2 mg tablet 1 - 2 mg (0.5 - 1 x 2 mg) PO Q6H PRN Pain Score 4-10 3 days #12 tabs 07/24/23 [Rx Last Taken Unknown] ondansetron 4 mg disintegrating tablet 4 mg PO Q8H PRN PRN Nausea And Vomiting 30 days #90 tabs 03/21/23 [Rx Last Taken Unknown] pantoprazole 40 mg tablet,delayed release 40 mg PO DAILY 30 days #30 tabs 03/21/23 [Rx Last Taken Unknown] sucralfate 1 gram tablet 1 g PO TID@0700,1100,1600 30 days #90 tabs 03/21/23 [Rx Last Taken Unknown] famotidine 40 mg tablet 40 mg PO DAILY stomach #30 tabs 04/11/23 [Rx Last Taken Unknown] metoprolol tartrate 25 mg tablet 25 mg PO BID heart 04/29/23 [History Last Taken Unknown] lidocaine 5 % topical patch 1 patch topical DAILY 05/05/23 [History Last Taken Unknown] spironolactone 25 mg tablet 25 mg PO DAILY #90 tabs 05/05/23 [Rx Last Taken Unknown] magnesium citrate 300 ml PO DAILY PRN constipation #296 mL 05/07/23 [Rx Last Taken Unknown] Allergy/AdvReac Type Severity Reaction Status Date / Time diclofenac Allergy rash Verified 05/07/23 09:19 prednisone Allergy Rash Verified 05/07/23 09:19 Family History Father Cancer Prostate cancer Mother Hypertension Sister Hypertension Surgical History History of back surgery History of back surgery History of cardiac catheterization History of cardioversion (06/18/19) History of coronary artery stent placement (08/04/00) History of electrophysiologic study (08/08/00) History of esophagogastroduodenoscopy (EGD) History of hemorrhoidectomy History of hernia repair History of left heart catheterization (07/17/12) History of Zenaida fundoplication History of radiofrequency ablation procedure for cardiac arrhythmia (11/11/11) Social History household members: none Smoking Status: Never smoker alcohol intake: never substance use type: does not use caffeine: No ROS ROS ED Constitutional Constitutional ED: Denies chills or fever(s) Eyes Eyes: Denies discharge from eye(s) ENT ENT ED: Denies discharge from eye(s), rhinorrhea or sore throat Cardiovascular Cardiovascular: Denies chest pain or palpitations Respiratory/Chest Respiratory/Chest: Denies cough or dyspnea Gastrointestinal Gastrointestinal: Reports abdominal pain and constipation; Denies diarrhea, nausea or vomiting Genitourinary Genitourinary ED: Denies dysuria Musculoskeletal Musculoskeletal: Reports back pain; Denies extremity pain Integumentary Denies Abrasions or rash Neurologic Neurologic: Reports weakness; Denies headache(s) Psychiatric Psychiatric: Denies anxiety or depression Allergic/Immunologic Allergic/Immunologic ED: Denies lip swelling or urticaria EXAM Physical Exam Const Vital Signs: 05/07/23 09:19 Temperature 98.0 F Temperature Source Temporal Pulse Rate 107 H Respiratory Rate 16 Blood Pressure 144/96 H Blood Pressure Mean 112 Pulse Ox 95 Oxygen Delivery Method Room Air Positive well nourished and well developed General Appearance ED: well developed HEENT Reports moist mucous membranes Eyes EOMs intact bilaterally Chest Wall inspection of chest normal and palpation of chest normal Resp normal respiratory effort and clear to auscultation bilaterally Cardio regular rate and regular rhythm GI GI Narrative: Abdomen soft with no focal tenderness to palpation. Active bowel sounds are noted. Extremity normal to inspection Neuro oriented x3 Skin no rashes or lesions noted MDM MDM MDM Narrative Medical decision making narrative: Abdominal x-ray obtained to evaluate bowel gas pattern for possible obstruction, constipation. Radiography Diagnostic Testing: Clinical Impression(s) from Imaging Studies KUB X-Ray 05/07/23 09:40 IMPRESSION: Nonspecific nonobstructive bowel gas pattern. Electronically Signed: Scott Cortez DO at 9:54 EDT , Treatment and Re-Evaluation :: Abdominal x-ray per my interpretation reveals increased stool distally. Radiology interpretation is reviewed. Patient was given a soapsuds enema. Nursing staff states he did have small results here. On repeat evaluation he does have some improvement in his symptoms. Given the fairly large stool burden and only small results with enema he will be given a prescription for magnesium citrate also. Return instructions given. Discharge Plan Triage Chief Complaint: Constipation ED Provider: Diaz,Dior Dx/Rx/DC Orders Clinical Impression: Constipation Instructions: ED Constipation (Adult) Prescriptions: New magnesium citrate Solution 300 ml PO DAILY PRN (Reason: constipation) Qty: 296 0RF Rx Instructions: Drink half the bottle. If no significant stool results within 3 hours, drink the remainder of the bottle. No Action tamsulosin 0.4 mg capsule 0.4 mg PO QHS levothyroxine 25 mcg tablet 50 mcg PO DAILY Patient Comments: take 1 tablet by mouth once daily acetaminophen 500 mg capsule 1,000 mg PO Q6H PRN (Reason: Pain) Linzess 72 mcg capsule 72 mcg PO DAILY PRN (Reason: Diarrhea) Hold Instructions: Resume on 02/22/23. Restart on Discharge from [facility] ascorbic acid (vitamin C) 500 mg tablet 500 mg PO DAILY finasteride 5 mg tablet 5 mg PO DAILY lidocaine 5 % adhesive patch,medicated 1 patch topical DAILY Rx Instructions: leave on most painful area for up to 12 hrs spironolactone 25 mg tablet 25 mg PO DAILY Qty: 90 3RF Prolia 60 MG/ML syringe 60 mg SQ .[id number] vitamin B complex Capsule 1 cap PO BID coenzyme Q10 [Co Q-10] 100 mg Capsule 100 mg PO DAILY baclofen 5 mg Tablet 5 mg PO TID PRN (Reason: muscle spasms) multivitamin Tablet 1 tab PO DAILY warfarin 2 mg tablet See Rx Instructions .ROUTE .COMPLEX Qty: 30 0RF Protocol: Dose Management Condition: Tuesday Dose/Route: 4 mg Instruction: 1 x 4 mg tablet Condition: Tuesday Dose/Route: 4 mg Instruction: 1 x 4 mg tablet Condition: Tuesday Dose/Route: 4 mg Instruction: 1 x 4 mg tablet Condition: Tuesday Dose/Route: 4 mg Instruction: 1 x 4 mg tablet Condition: Dose/Route: 2 mg Instruction: 1 x 2 mg tablet Condition: Tuesday Dose/Route: 2 mg Instruction: 1 x 2 mg tablet Condition: Tuesday Dose/Route: 2 mg Instruction: 1 x 2 mg tablet Protocol Text: Adjustment Start Date: 05/05/23 INR Value: 1.2 INR Date: 05/05/23 Recheck Date: 05/12/23 Patient Comments: Adjustment 01/03. Pt to take 2mg Wednesday 01/03, 2mg Thursday 01/04. Retest 01/05. Rx Instructions: 4mg Tue, Tue, Tue. 2mg Tue, , Sat vitamin A 7,500 mcg (25,000 unit) Capsule 25,000 unit PO DAILY polyethylene glycol 3350 17 gram Powder In Packet 17 g PO DAILY isosorbide mononitrate 30 mg tablet extended release 24 hr 30 mg PO BID cholecalciferol (vitamin D3) [Vitamin D3] 25 mcg (1,000 unit) Capsule 1,000 unit PO DAILY warfarin 4 mg tablet See Rx Instructions .Route .COMPLEX Protocol: Dose Management Condition: Tuesday Dose/Route: 4 mg Instruction: 1 x 4 mg tablet Condition: Tuesday Dose/Route: 4 mg Instruction: 1 x 4 mg tablet Condition: Tuesday Dose/Route: 4 mg Instruction: 1 x 4 mg tablet Condition: Tuesday Dose/Route: 4 mg Instruction: 1 x 4 mg tablet Condition: Dose/Route: 2 mg Instruction: 1 x 2 mg tablet Condition: Tuesday Dose/Route: 2 mg Instruction: 1 x 2 mg tablet Condition: Tuesday Dose/Route: 2 mg Instruction: 1 x 2 mg tablet Protocol Text: Adjustment Start Date: 05/05/23 INR Value: 1.2 INR Date: 05/05/23 Recheck Date: 05/12/23 Rx Instructions: 4mg Tue, Tue, Tue. 2mg Tue, , Sat amiodarone 100 mg tablet 100 mg PO BID Creon 36,000-114,000- 180,000 unit capsule,delayed release(DR/EC) See Rx Instructions PO .COMPLEX Rx Instructions: take 1-2 with snacks and 2-3 with meals sucralfate 1 gram Tablet 1 g PO TID@0700,1100,1600 30 Days Qty: 90 0RF hydromorphone 2 mg Tablet 1 - 2 mg PO Q6H PRN (Reason: Pain Score 4-10) 3 Days Qty: 12 0RF pantoprazole 40 mg Tablet,Delayed Release (Dr/Ec) 40 mg PO DAILY 30 Days Qty: 30 0RF ondansetron 4 mg Tablet,Disintegrating 4 mg PO Q8H PRN PRN (Reason: Nausea And Vomiting) 30 Days Qty: 90 0RF furosemide 40 mg tablet 40 mg PO BID PRN (Reason: Weight Gain) Hold Instructions: Resume on 02/18/23. Rx Instructions: as needed for weight gain of 3# in one day diltiazem HCl 120 mg capsule,extended release 24hr 120 mg PO BID Qty: 60 11RF famotidine 40 mg tablet 40 mg PO DAILY Qty: 30 11RF metoprolol tartrate 25 mg tablet 25 mg PO BID Primary Care Provider: César Chinchilla Referrals: César Chinchilla MD [Primary Care Provider] - 1 Week if not improving Disposition Disposition: Home, Self Care
--- NOTE | 2023-05-07 09:40 | RAD_ITS ---
EXAM: XR ABDOMEN, 1 VIEW CLINICAL INDICATION: pain, constipation TECHNIQUE: Frontal supine view of the abdomen/pelvis. COMPARISON: CT abdomen and pelvis, 02/19/2023. FINDINGS: LOWER THORAX: No acute pathology. GASTROINTESTINAL TRACT: Nonspecific nonobstructive bowel gas pattern. ORGANS: Normal as visualized. No organomegaly. No abnormal calcifications. BONES/JOINTS: Multilevel vertebral augmentation presumptively for compression fractures. Multilevel lumbar laminectomy changes are identified. Diffuse degenerative changes throughout the spine. SOFT TISSUES: No acute pathology. RAD/Abdomen Single View IMPRESSION: Nonspecific nonobstructive bowel gas pattern. Electronically Signed: Scott Cortez DO at 9:54 EDT ,
== END 2023-05-07 11:59 | disposition home or self-care (01) ==
PROVIDERS: Emergency Provider Emergency Medicine; PCP Family Medicine; Visit Provider Emergency Medicine
DX: K59.00 Constipation, unspecified (principal); I13.0 Hypertensive heart and chronic kidney disease with heart failure and stage 1 through stage 4 chronic kidney disease, or unspecified chronic kidney disease; I50.32 Chronic diastolic (congestive) heart failure; I48.0 Paroxysmal atrial fibrillation; N18.32 Chronic kidney disease, stage 3b; I25.10 Atherosclerotic heart disease of native coronary artery without angina pectoris; E78.00 Pure hypercholesterolemia, unspecified; I25.2 Old myocardial infarction; N40.0 Benign prostatic hyperplasia without lower urinary tract symptoms; Z99.89 Dependence on other enabling machines and devices; Z79.01 Long term (current) use of anticoagulants; Z79.899 Other long term (current) drug therapy; K21.9 Gastro-esophageal reflux disease without esophagitis; Z95.5 Presence of coronary angioplasty implant and graft
CPT/HCPCS: 74018; 99284

== ENCOUNTER → 2023-05-19 | Outpatient (CLI) | payer MEDICARE, OTHER, SELFPAY ==
--- NOTE | 2023-05-19 13:24 | ECHOD_ITS ---
Reason For Study: Dyspnea/SOB Procedure This was a 2D Doppler, Color Flow transthoracic echocardiogram. Exam performed in department. Left Ventricle Normal LV size. Moderate concentric left ventricular hypertrophy. The estimated ejection fraction is 53 %. There is mild global hypokinesis of the left ventricle. Right Ventricle Normal RV size. Normal systolic function. Atria The left atrium is severely enlarged. The right atrium is mildly enlarged. Mitral Valve Normal mitral valve. Mild-Moderate (1-2+) eccentric mitral valve insufficiency. Tricuspid Valve Normal tricuspid valve. Mild to moderate (1-2+) tricuspid valve insufficiency. Pulmonary artery systolic pressure is 40 mmHg. Aortic Valve Trisinus/trileaflet aortic valve. Mild focal aortic valve calcification. Mild (1+) aortic valve insufficiency. Great Vessels Mildly dilated aortic root. The pulmonary artery is normal size. Normal inferior vena cava. Pericardium/Pleural No pericardial effusion. MMode/2D Measurements & Calculations LVIDd: 4.6 cm IVSd: 1.8 cm Ao root diam: 4.1 cm LVIDs: 3.4 cm LVPWd: 1.4 cm LA dimension: 5.4 cm RVDd: 4.2 cm FS: 25.4 % LAV(MOD-bp): 136.5 ml LA A4 area: 34.9 cm2 RA A4 area: 23.6 cm2 LAV(MOD-bp) Indexed: 78.7 ml/m2 LAV(MOD-sp2): 134.0 ml LAV(MOD-sp4): 134.9 ml TAPSE: 1.8 cm Doppler Measurements & Calculations MV E max andrew: 70.0 cm/sec Lat Peak E' Andrew: 14.6 cm/sec Med Peak E' Andrew: 8.2 cm/sec E/E' lat: 4.8 E/E' med: 8.5 MV V2 max: 79.2 cm/sec Ao V2 max: 101.9 cm/sec AI max andrew: 393.5 cm/sec MV max P.5 mmHg Ao max P.4 mmHg AI max P.6 mmHg MV V2 mean: 43.1 cm/sec AI dec slope: 158.2 cm/sec2 MV mean P.86 mmHg AI P1/2t: 728.6 msec MV V2 VTI: 21.2 cm LV V1 max: 61.3 cm/sec MR max andrew: 495.7 cm/sec TR max andrew: 304.9 cm/sec LV V1 max P.5 mmHg MR max P.3 mmHg TR max P.2 mmHg MR mean andrew: 360.6 cm/sec MR mean P.5 mmHg MR VTI: 137.7 cm ECHO/Echo Complete Interpretation Summary Normal LV size. The estimated ejection fraction is 53 %. Moderate concentric left ventricular hypertrophy. Pulmonary artery systolic pressure is 40 mmHg. Compared to the previous the pulmonary pressures are improved Ordering Physician: Krishna Grace Referring Physician: Krishna Grace Performed By: Williams Chavez RCS
--- NOTE | 2023-05-19 13:24 | RAD_ITS ---
INDICATION: abdominal pain, constipation EXAMINATION/TECHNIQUE: X-RAY - XR Abdomen 1 View COMPARISON: 05/07/2023. FINDINGS: BOWEL GAS PATTERN: Nonspecific gaseous bowel loops and colon. FREE AIR: Not assessed on a single supine view. ORGANOMEGALY: Not seen. CALCIFICATIONS: No abnormal calcifications observed. LOWER CHEST: No acute pathology. BONES AND SOFT TISSUES: Stable soft tissues and osseous structures. RAD/Abdomen Single View IMPRESSION: Nonspecific gas pattern. Electronically Signed: Nando Benavides MD at 12:19 EDT ,
== END | disposition home or self-care (01) ==
LOC: CVS 13:19
PROVIDERS: PCP Family Medicine; Referring Provider Nurse Practitioner Family; Visit Provider Nurse Practitioner Family
DX: I50.32 Chronic diastolic (congestive) heart failure (principal); N18.32 Chronic kidney disease, stage 3b; I25.10 Atherosclerotic heart disease of native coronary artery without angina pectoris; Z79.01 Long term (current) use of anticoagulants; D64.9 Anemia, unspecified
CPT/HCPCS: 74018; 93306

== ENCOUNTER 2023-06-09 16:45 | Outpatient (CLI) | payer MEDICARE, OTHER, SELFPAY | END 2023-06-09 23:59 | disposition home or self-care (01) | LOC: LABSPEC 16:46 | PROVIDERS: PCP Family Medicine; Visit Provider Family Medicine | DX: R30.0 Dysuria (principal) | CPT/HCPCS: 87086; 87088; 87186 ==

== ENCOUNTER → 2023-06-14 | Outpatient (CLI) | payer MEDICARE, OTHER, SELFPAY ==
[2023-06-14 13:14] LABS: Bacteria 0 SEEN /hpf (None Seen); Mucous, Urine 0 SEEN /hpf (<or=2+); Red Blood Cells-Urine 0 SEEN /hpf (0-5); Squamous Epithelial Cells - UA 0 SEEN /hpf (0-5); White Blood Cells 0 SEEN /hpf (0-5)
[2023-06-14 15:12] LABS: Absolute Lymphocyte Count 0.45 X10^3/uL (0.83-4.51); Absolute Neutrophil Count 11.4 X10^3/uL (2.0-7.7); Basophil# 0.06 X10^3/uL; Basophil% 0.5 % (0-1); Eosinophil# 0.04 X10^3/uL; Eosinophils% 0.3 % (0-5); Hematocrit 40.2 % (40-54); Lymphocyte # 0.45 X10^3/ul (0.83-4.51); Lymphocyte % 3.4 % (19-41); Mean Corp Hgb Conc 32.3 g/dL (32-36); Mean Corpuscular Hgb 33.1 pg (27.0-32.0); Mean Corpuscular Volume 102.3 fL (80-94); Monocyte# 0.98 X10^3/uL; Monocyte% 7.5 % (0-10); NRBC Flagged by Analyzer 0 % (0-5); Neutrophil # 11.39 X10^3/uL (2.7-7.7); Neutrophil % 87.2 % (47-70); POSITIVE DIFFERENTIAL YES; POSITIVE MORPHOLOGY YES; Platelet Count 296 K/mm3 (150-450); RBC Distribution Width CV 17.9 % (11.6-14.6); RBC Distribution Width SD 67.7 fl (35.1-43.9); Red Blood Count 3.93 M/mm3 (4.6-6.2); White Blood Count 13.1 K/mm3 (4.4-11.0)
[2023-06-14 15:16] LABS: Differential Indicated SCAN CRITERIA MET
[2023-06-14 15:20] LABS: Color, Urine Yellow (Yellow); Glucose, Dipstick Normal (Normal); Ketone-Dipstick Negative (Negative); Leukocyte Esterase-Dipstick Negative /ul (Negative); Nitrite-Dipstick Negative (Negative); Occult Blood-Urine Negative /ul (Negative); Protein-Dipstick Negative (Negative); Specific Gravity, Urine 1.015 (1.002-1.030); Urine Bilirubin Dipstick Negative (Negative); Urine Clarity Clear (Clear); Urine Urobilinogen Normal (Normal)
[2023-06-14 15:40] LABS: Anisocytosis 1+; Differential Comment SCANNED
[2023-06-14 16:09] LABS: ALB/GLOB Ratio 0.8 RATIO (0.9-2.4); AST(SGOT) 219 U/L (15-37); Alanine Aminotransfer ALT/SGPT 356 U/L (16-61); Albumin, Serum 3.1 g/dL (3.2-5.0); Alkaline Phosphatase 77 U/L (45-117); Anion Gap 9 (5-15); BUN 79 mg/dL (7-18); BUN/Creat Ratio 19.5 RATIO (10-20); CRP 7.65 mg/L (0.0-3.0); Calcium,Total 8.9 mg/dL (8.5-10.1); Chloride 99 mmol/L (98-107); Creatinine, Serum 4.06 mg/dL (0.70-1.30); EST Glomerular Filtration Rate 15 mL/min (>60); Est Glom Filt Rate - Afr Amer 18 mL/min (>60); Glucose 112 mg/dL (74-106); Potassium 4.9 mmol/L (3.5-5.1); Protein, Total 7.1 g/dL (6.4-8.2); Sodium Level 133 mmol/L (136-145)
== END | disposition home or self-care (01) ==
LOC: MTLAB 13:09
PROVIDERS: PCP Family Medicine; Referring Provider Family Medicine; Visit Provider Family Medicine
DX: N41.9 Inflammatory disease of prostate, unspecified (principal); N28.9 Disorder of kidney and ureter, unspecified
CPT/HCPCS: 36415; 80053; 81001; 85025; 86140; 87086

== ENCOUNTER → 2023-06-15 | Outpatient (CLI) | payer MEDICARE, OTHER, SELFPAY ==
[2023-06-15 15:34] LABS: International Normalized Ratio 1.3; Prothrombin Time (Protime)PT. 16.4 SECONDS (11.7-14.9)
== END | disposition home or self-care (01) ==
LOC: MFPLAB 11:36
PROVIDERS: PCP Family Medicine; Visit Provider Family Medicine
DX: N28.9 Disorder of kidney and ureter, unspecified (principal); Z79.01 Long term (current) use of anticoagulants
CPT/HCPCS: 36415; 85610

== ENCOUNTER 2023-06-16 10:28 | Inpatient (IN) | payer MEDICARE, OTHER, SELFPAY ==
[2023-06-16] VITALS (9 sets, daily range): BP systolic 94–137; BP diastolic 64–81; PULSE 77–116; RESP 16–20; TEMP 36.2–36.7; O2SAT 93–97; BMI 19.5; BMI 19.1
--- NOTE | 2023-06-16 10:56 | EX.ED.DYSGE1 ---
HPI History of Present Illness Chief Complaint: Nausea/Vomiting/Diarrhea Informant: patient Narrative Narrative: Referred in here by PCP office for abnormal labs. Patient reports was at his doctor's office a week ago for urine symptoms he was placed on antibiotics. He had dysuria. He followed up 2 days ago, states his antibiotics was changed due to still having symptoms. Since then nausea and vomiting. Denies abdominal pain. Denies fever. History of paroxysmal A-fib on Coumadin. Stage III kidney disease. He does not know his initial antibiotics, paperwork was sent in with the patient he states he was switched over to another antibiotic which notes cefdinir, however is not started taking it. Currently nauseated. After evaluating patient, I reviewed records, he had E. coli in his urine culture 7 days ago pansensitive. He had recheck of his urine and culture 2 days ago through the office that were negative. His creatinine was up to 4 range. He was more in the 1.5-2 range previously. Prior similar symptoms: No PFSH PFSH Medical History Acute constipation Acute exacerbation of chronic low back pain Acute gastrointestinal bleeding Acute kidney injury superimposed on chronic kidney disease Ambulates with cane Anemia Arthritis Atherosclerotic heart disease of [place] coronary artery without angina pectoris Atrial fibrillation Atypical atrial flutter (12/2020) Back pain Benign prostatic hyperplasia BPH (benign prostatic hyperplasia) Cancer Cardiology follow-up encounter Chronic anemia Chronic heart failure with preserved ejection fraction (HFpEF) Chronic kidney disease Chronic renal insufficiency Colitis CPAP (continuous positive airway pressure) dependence Debility Diarrhea Difficulty chewing Dysphagia Easy bruising Elevated LFTs Elevated liver enzymes Essential (primary) hypertension Excessive bleeding Gastric reflux GI bleed (2012) Hiatal hernia High cholesterol History of colon polyps History of diverticulitis History of echocardiogram History of edema History of heart attack History of hyperthyroidism History of leukemia History of pain when walking History of renal disease History of stress test HLD (hyperlipidemia) Kidney disease Kidney stones Myocardial infarct Nausea and vomiting Non-rheumatic tricuspid valve insufficiency Non-smoker Nonrheumatic mitral (valve) insufficiency 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 Osteoarthritis Paroxysmal atrial fibrillation Secondary pulmonary arterial hypertension Sleep apnea Sleep apnea Stage 3b chronic kidney disease Thoracic aortic aneurysm (TAA) Thyroid disease Wears glasses Home Medications denosumab 60 mg/mL subcutaneous syringe (Prolia) 60 mg SQ .[id number] BONES 12/09/20 [History Last Taken 11/10/22] tamsulosin 0.4 mg capsule 0.4 mg PO QHS bladder 11/18/21 [History Last Taken 02/12/23] levothyroxine 25 mcg tablet 50 mcg PO DAILY thyroid 02/17/22 [History Last Taken 02/12/23] baclofen 5 mg tablet 5 mg PO TID PRN muscle spasms 05/01/22 [History Last Taken Unknown] coenzyme Q10 100 mg capsule (Co Q-10) 100 mg PO DAILY supplement 05/01/22 [History Last Taken 02/12/23] vitamin B complex 1 cap PO BID supplement 05/01/22 [History Last Taken 02/12/23] acetaminophen 500 mg capsule 1,000 mg PO Q6H PRN Pain 06/15/22 [History Last Taken Unknown] linaclotide 72 mcg capsule (Linzess) 72 mcg PO DAILY PRN Diarrhea 06/15/22 [History Last Taken Unknown] ascorbic acid (vitamin C) 500 mg tablet 500 mg PO DAILY supplement 07/20/22 [History Last Taken 02/12/23] finasteride 5 mg tablet 5 mg PO DAILY prostate 08/05/22 [History Last Taken 02/12/23] multivitamin 1 tab PO DAILY supplement 08/16/22 [History Last Taken 02/12/23] furosemide 40 mg tablet 40 mg PO BID PRN Weight Gain 11/25/22 [History Last Taken Unknown] diltiazem HCl 120 mg capsule,extended release 24 hr 120 mg PO BID heart #60 caps 11/30/22 [Rx Last Taken 02/12/23] cholecalciferol (vitamin D3) 25 mcg (1,000 unit) capsule (Vitamin D3) 1,000 unit PO DAILY supplement 02/19/23 [History Last Taken Unknown] isosorbide mononitrate 30 mg tablet,extended release 24 hr 30 mg PO BID heart 02/19/23 [History Last Taken Unknown] polyethylene glycol 3350 17 gram oral powder packet 17 g PO DAILY constipation 02/19/23 [History Last Taken Unknown] vitamin A 7,500 mcg (25,000 unit) capsule 25,000 unit PO DAILY supplement 02/19/23 [History Last Taken Unknown] amiodarone 100 mg tablet 100 mg PO BID heart 02/21/23 [History Last Taken Unknown] usvtjr-[id number]-[id number] 36,000-114,000-180,000 unit capsule,delay rel (Creon) See Rx Instructions PO .COMPLEX digestion 02/21/23 [History Last Taken Unknown] warfarin 4 mg tablet See Rx Instructions .Route .COMPLEX blood thinner 02/21/23 [History Last Taken Unknown] hydromorphone 2 mg tablet 1 - 2 mg (0.5 - 1 x 2 mg) PO Q6H PRN Pain Score 4-10 3 days #12 tabs 03/21/23 [Rx Last Taken Unknown] ondansetron 4 mg disintegrating tablet 4 mg PO Q8H PRN PRN Nausea And Vomiting 30 days #90 tabs 03/21/23 [Rx Last Taken Unknown] pantoprazole 40 mg tablet,delayed release 40 mg PO DAILY 30 days #30 tabs 03/21/23 [Rx Last Taken Unknown] sucralfate 1 gram tablet 1 g PO TID@0700,1100,1600 30 days #90 tabs 03/21/23 [Rx Last Taken Unknown] famotidine 40 mg tablet 40 mg PO DAILY stomach #30 tabs 04/11/23 [Rx Last Taken Unknown] metoprolol tartrate 25 mg tablet 25 mg PO BID heart 04/29/23 [History Last Taken Unknown] lidocaine 5 % topical patch 1 patch topical DAILY 05/05/23 [History Last Taken Unknown] spironolactone 25 mg tablet 25 mg PO DAILY #90 tabs 05/05/23 [Rx Last Taken Unknown] magnesium citrate 300 ml PO DAILY PRN constipation #296 mL 05/07/23 [Rx Last Taken Unknown] lactulose 10 gram/15 mL oral solution 10 g (15 mL) PO DAILY 30 days #450 mL 05/18/23 [Rx Last Taken Unknown] warfarin 2 mg tablet See Rx Instructions PO .COMPLEX blood thinner #90 tabs 05/27/23 [Rx Last Taken Unknown] cefdinir 300 mg capsule 300 mg PO Q12H 06/16/23 [History Last Taken Unknown] loratadine 10 mg tablet (Claritin) 10 mg PO DAILY 06/16/23 [History Last Taken Unknown] Allergy/AdvReac Type Severity Reaction Status Date / Time diclofenac Allergy rash Verified 06/16/23 10:29 prednisone Allergy Rash Verified 06/16/23 10:29 Family History Father Cancer Prostate cancer Mother Hypertension Sister Hypertension Surgical History History of back surgery History of back surgery History of cardiac catheterization History of cardioversion (06/18/19) History of coronary artery stent placement (08/04/00) History of electrophysiologic study (08/08/00) History of esophagogastroduodenoscopy (EGD) History of hemorrhoidectomy History of hernia repair History of left heart catheterization (07/17/12) History of Zenaida fundoplication History of radiofrequency ablation procedure for cardiac arrhythmia (11/11/11) Social History household members: none Smoking Status: Never smoker alcohol intake: never substance use type: does not use caffeine: No ROS ROS ED Constitutional Constitutional ED: Denies chills, fever(s) or sweats Eyes Eyes: Denies change in vision ENT ENT ED: Denies dysphagia or sore throat Cardiovascular Cardiovascular: Denies chest pain, leg edema, palpitations or racing heartbeat Respiratory/Chest Respiratory/Chest: Denies cough, dyspnea or dyspnea on exertion Gastrointestinal Gastrointestinal: Reports nausea and vomiting; Denies abdominal pain or diarrhea Genitourinary Genitourinary ED: Reports dysuria; Denies hematuria or urinary frequency Musculoskeletal Musculoskeletal: Denies back pain, extremity pain or neck pain Integumentary Denies rash or wounds Neurologic Neurologic: Denies headache(s), paresthesias or weakness EXAM Physical Exam Const Vital Signs: 06/16/23 10:29 06/16/23 10:46 06/16/23 12:39 Temperature 97.1 F L 98.1 F Temperature Source Temporal Oral Pulse Rate 102 H 88 97 Respiratory Rate 18 17 Blood Pressure 96/68 137/66 H Blood Pressure Mean 77 89 Pulse Ox 97 96 Oxygen Delivery Method Room Air Room Air 06/16/23 12:50 06/16/23 15:13 Temperature 97.5 F L 97.7 F L Temperature Source Oral Oral Pulse Rate 116 H 110 H Respiratory Rate 17 20 H Blood Pressure 94/64 109/76 Blood Pressure Mean 74 87 Pulse Ox 95 93 Oxygen Delivery Method Room Air Room Air Positive well nourished and well developed General Appearance ED: well developed and NAD HEENT Reports moist mucous membranes normocephalic and atraumatic Eyes PERRL, EOMs intact bilaterally and conjunctivae normal General Eye ED: Yes normal appearance of both eyes Neck no lymphadenopathy and supple General: Negative for tenderness Chest Wall Chest: Negative for tenderness Resp normal respiratory effort and normal air movement Effort and Inspection: symmetric chest movement; Negative for respiratory distress Cardio regular rate, regular rhythm and no murmurs Peripheral Pulses: pulses 2+ throughout GI normal to inspection, nondistended, normoactive bowel sounds and non-tender Palpation: Negative for guarding or rebound tenderness present Back/Spine no CVA tenderness and no thoracic nor lumbar tenderness Extremity normal to inspection General Extremety ED: Negative for edema or tenderness General Extremity: Negative for edema Neuro oriented x3 and no sensory deficits noted Sensorium / Orientation: awake and alert Skin no rashes or lesions noted and no wounds MDM MDM MDM Narrative Medical decision making narrative: Interventions / MDM: Differential diagnosis: Electrolyte abnormalities., Infectious findings, Diagnosis considered but do not suspect: Cholecystitis however ultrasound negative. UTI, however urine cleared. My EKG interpretation: Rate controlled A-fib at 95, no ST or T wave changes. Imaging independently reviewed and interpreted by myself: Right upper quadrant ultrasound, kidney ultrasound: No acute process read by radiology. External documents reviewed: N/A Test considered but not ordered:N/A ED course: Patient nontoxic, vital signs stable. Recent UTI, nausea vomiting with elevated creatinine. We will start fluids we will recheck labs and urine. Patient likely require hospitalization. 1200: Labs worsening FE with creatinine of 4.33. Potassium 5.3. Elevated liver enzymes. Count team. Urine pending for collection. Patient still has gallbladder from labs chronic recent elevation of his liver enzymes. We will order a right upper kidneys. INR 1.7. He has no right upper quadrant pain on examination. Ultrasound results negative both kidneys and right upper quadrant. In the interim nursing did call to the doctor's office he was placed on Bactrim which she took least 5 days. White count with tachycardia meeting SIRS. Patient without cough for concerns of pneumonia. Urine without infection. Lactic acid and blood culture ordered and sent. Clinically improving on reevaluation. I discussed with hospitalist Dr. Blount for admission. Re-evaluation: stable Disposition discussed with patient/family/significant other: Patient Case discussed with consulting clinician: Hospitalist This note was generated with [employer] software. It may contain incorrect words, spelling, and punctuation that were not noted in checking the note before signing. Lab Data Attestation: I reviewed the patient's lab results. Labs: Laboratory Results - last 24 hr 06/16/23 06/16/23 10:44 13:45 WBC 16.0 H RBC 4.37 L Hgb 14.6 Hct 44.1 MCV 100.9 H MCH 33.4 H MCHC 33.1 RDW Std Deviation 67.3 H RDW Coeff of Pablo 18.4 H Plt Count 354 MPV 9.8 Immature Gran % (Auto) 1.600 H Neut % (Auto) 88.7 H Lymph % (Auto) 2.7 L Terrell % (Auto) 6.5 Eos % (Auto) 0.1 Baso % (Auto) 0.4 Absolute Neuts (auto) 14.2 H Absolute Lymphs (auto) 0.44 L Nucleated RBC % 0 PT 19.7 H INR 1.7 Sodium 133 L Potassium 5.3 H Chloride 100 Carbon Dioxide 24.0 Anion Gap 9 BUN 84 H Creatinine 4.33 H Estim Creat Clear Calc 11.01 Est GFR (MDRD) Af Amer 17 L Est GFR (MDRD) Non-Af 14 L BUN/Creatinine Ratio 19.4 Glucose 111 H Calcium 9.0 Total Bilirubin 0.90 AST 197 H ALT 451 H Alkaline Phosphatase 83 Total Protein 7.4 Albumin 3.1 L Globulin 4.3 H Albumin/Globulin Ratio 0.7 L Lipase 38 Urine Color Yellow Urine Clarity Sl. Cloudy Urine pH 5.0 Ur Specific [place] 1.015 Urine Protein Negative Urine Glucose (UA) 100 H Urine Ketones Negative Urine Occult Blood Negative Urine Nitrite Negative Urine Bilirubin Negative Urine Urobilinogen Normal Ur Leukocyte Esterase Negative Urine RBC 0 SEEN Urine WBC 0-5 SEEN Ur Squamous Epith Cells 0-5 SEEN Urine Bacteria 0 SEEN Urine Mucus 0 SEEN Radiography Diagnostic Testing: Clinical Impression(s) from Imaging Studies Gallbladder Ultrasound 06/16/23 11:57 IMPRESSION: Bilateral renal cysts. No hydronephrosis. Electronically Signed: Frandy Faustin MD at 15:39 EDT , Discharge Plan Triage Chief Complaint: Nausea/Vomiting/Diarrhea ED Provider: Sandor Stevens Dx/Rx/DC Orders Clinical Impression: FE (acute kidney injury), Transaminitis, Dehydration, Acute hyperkalemia, Atrial fibrillation, controlled Primary Care Provider: César Chinchilla Disposition Disposition: Acute Care Hospital [facility]
[2023-06-16 10:58] LABS: Absolute Lymphocyte Count 0.44 X10^3/uL (0.83-4.51); Absolute Neutrophil Count 14.2 X10^3/uL (2.0-7.7); Basophil# 0.06 X10^3/uL; Basophil% 0.4 % (0-1); Eosinophil# 0.01 X10^3/uL; Eosinophils% 0.1 % (0-5); Hematocrit 44.1 % (40-54); Hemoglobin 14.6 g/dL (13.0-16.5); Lymphocyte # 0.44 X10^3/ul (0.83-4.51); Lymphocyte % 2.7 % (19-41); Mean Corp Hgb Conc 33.1 g/dL (32-36); Mean Corpuscular Hgb 33.4 pg (27.0-32.0); Mean Corpuscular Volume 100.9 fL (80-94); Mean Platelet Vol. 9.8 fl (6.2-12.0); Monocyte# 1.04 X10^3/uL; Monocyte% 6.5 % (0-10); NRBC Flagged by Analyzer 0 % (0-5); Neutrophil % 88.7 % (47-70); POSITIVE DIFFERENTIAL YES; POSITIVE MORPHOLOGY YES; Platelet Count 354 K/mm3 (150-450); RBC Distribution Width CV 18.4 % (11.6-14.6); RBC Distribution Width SD 67.3 fl (35.1-43.9); Red Blood Count 4.37 M/mm3 (4.6-6.2)
[2023-06-16 10:59] LABS: Differential Indicated SCAN CRITERIA MET
[2023-06-16] MEDS: 0.9% Normal Saline (500mL Bag) 500 ML 1000 ML IV (11:00)
[2023-06-16] MEDS: Ondansetron 4 MG/2 ML Vial IV (11:00)
[2023-06-16 11:06] LABS: International Normalized Ratio 1.7; Prothrombin Time (Protime)PT. 19.7 SECONDS (11.7-14.9)
[2023-06-16 11:10] LABS: ALB/GLOB Ratio 0.7 RATIO (0.9-2.4); AST(SGOT) 197 U/L (15-37); Alanine Aminotransfer ALT/SGPT 451 U/L (16-61); Albumin, Serum 3.1 g/dL (3.2-5.0); Alkaline Phosphatase 83 U/L (45-117); Anion Gap 9 (5-15); BUN 84 mg/dL (7-18); BUN/Creat Ratio 19.4 RATIO (10-20); Chloride 100 mmol/L (98-107); Creatinine, Serum 4.33 mg/dL (0.70-1.30); EST Glomerular Filtration Rate 14 mL/min (>60); Est Glom Filt Rate - Afr Amer 17 mL/min (>60); Estimated Creatinine Clearance 11.01 ml/min; Globulin 4.3 g/dL (2.2-4.2); Glucose 111 mg/dL (74-106); Potassium 5.3 mmol/L (3.5-5.1); Protein, Total 7.4 g/dL (6.4-8.2); Sodium Level 133 mmol/L (136-145)
--- NOTE | 2023-06-16 11:57 | US_ITS ---
EXAM: US ABDOMEN LIMITED, RIGHT UPPER QUADRANT CLINICAL INDICATION: transaminitis, raven TECHNIQUE: Real-time ultrasound of the right upper quadrant with image documentation. COMPARISON: No relevant prior studies available. FINDINGS: LIVER: Normal. There is normal echotexture. No focal hepatic lesion. No intrahepatic biliary ductal dilation. GALLBLADDER: Normal. No shadowing gallstone. No gallbladder wall thickening is demonstrated. No pericholecystic fluid. Negative sonographic Hernández''s sign. COMMON BILE DUCT: Unremarkable as visualized. The proximal common bile duct is normal size. PANCREAS: Unremarkable as visualized. No focal abnormality is demonstrated in the pancreas. No pancreatic ductal dilatation. RIGHT KIDNEY: Multiple right renal cysts. There is no hydronephrosis. No shadowing calculus. IMPRESSION: No acute right upper quadrant abnormality. Electronically Signed: Frandy Faustin MD at 15:37 EDT , EXAM: US RETROPERITONEAL LIMITED, RENAL CLINICAL INDICATION: transaminitis, raven TECHNIQUE: Limited grayscale and color Doppler sonographic evaluation of the retroperitoneum was performed. COMPARISON: No relevant prior studies available. FINDINGS: RIGHT KIDNEY: Right kidney measures 12 cm in length. Multiple right renal cyst measuring up to 4.6 cm in maximum diameter. No hydronephrosis. No shadowing calculus. No perinephric collection is demonstrated. LEFT KIDNEY: Left kidney measures 10 cm in length. Several left renal cysts largest one measuring 5.5 cm in diameter. No shadowing calculus. No perinephric collection is demonstrated. BLADDER: Urinary bladder is normal in appearance. US/Gallbladder IMPRESSION: Bilateral renal cysts. No hydronephrosis. Electronically Signed: Frandy Faustin MD at 15:39 EDT ,
--- NOTE | 2023-06-16 12:01 | EKG12_ITS ---
Test Reason : HIGH K Blood Pressure : / mmHG Vent. Rate : 095 BPM Atrial Rate : 000 BPM P-R Int : 000 ms QRS Dur : 114 ms QT Int : 396 ms P-R-T Axes : 000 -37 018 degrees QTc Int : 497 ms Atrial fibrillation Left axis deviation Incomplete right bundle branch block Prolonged QT Abnormal ECG Confirmed by JOSE KASPER, JESSICA ([id number]), editor greeting card CHET PASTOR ([id number]) on 06/21/2023 12:47:59 PM Referred By: Confirmed By:CAM GARCIA MD
[2023-06-16] MEDS: Albuterol 2.5 MG/3 ML VIAL.NEB. 10 MG INHALATION (12:21)
[2023-06-16] MEDS: Insulin Lispro 10 UNIT in Syringe 0 ML 6 UNIT IV (12:25)
[2023-06-16] MEDS: Dextrose 50%-Water 25 GM/50 ML DISP.SYRIN IV (12:26)
[2023-06-16 13:21] LABS: Lipase 38 U/L (13-75)
[2023-06-16] MEDS: 0.9% Normal Saline (1000mL) 1,000 ML 999 ML IV (13:37)
[2023-06-16 13:54] LABS: Bacteria 0 SEEN /hpf (None Seen); Mucous, Urine 0 SEEN /hpf (<or=2+); Red Blood Cells-Urine 0 SEEN /hpf (0-5)
[2023-06-16 14:02] LABS: Color, Urine Yellow (Yellow); Glucose, Dipstick 100 mg/dl (Normal); Ketone-Dipstick Negative (Negative); Leukocyte Esterase-Dipstick Negative /ul (Negative); Nitrite-Dipstick Negative (Negative); Occult Blood-Urine Negative /ul (Negative); Protein-Dipstick Negative (Negative); Specific Gravity, Urine 1.015 (1.002-1.030); Urine Bilirubin Dipstick Negative (Negative); Urine Clarity Sl. Cloudy (Clear); Urine Urobilinogen Normal (Normal)
[2023-06-16 14:09] LABS: White Blood Cells 0-5 SEEN /hpf (0-5)
[2023-06-16 14:10] LABS: Squamous Epithelial Cells - UA 0-5 SEEN /hpf (0-5)
--- NOTE | 2023-06-16 15:37 | PCM.HP.STD ---
HPI - General General Date of Admission: 06/16/23 Date of Service: 06/16/23 Chief Complaint: Intractable nausea, emesis, diarrhea. HPI Narrative The patient is a 82 y/o M w/ PMHx: HFpEF, COPD, HTN, HLD, Hypothyroidism, Tobacco use, PAF/Flutter s/p RFA, GERD, ALVARADO on CPAP, TAA, GERD s/p zenaida, CAD s/p PCI, Chronic pain syndrome, Chronic constipation, Chronic pancreatic insufficiency who presents to the [facility] ED on 06/16/23 with history of persistent nausea, emesis and loose stools with abnormal labs per PCP with evaluation approximate 1 week prior to his doctor's office with urinary type symptoms at that time placed on oral antibiotics secondary to dysuria history with follow-up 2 days prior to current presentation with antibiotics altered secondary to symptoms ongoing with then onset of nausea and emesis, diarrhea with no abdominal pain or any fever although patient does report he is not started taking the cefdinir which she was switched to recently with urine culture noted pansensitive to E. coli with recheck of his urine and culture 2 days ago through the office that was unremarkable however patient's creatinine has been trending upward prompting ED referral. Eventually able to find out that patient was on Bactrim for the UTI for at least a total of 5 days. Work-up in the ED included T97.1, heart rate 102, BP 96/68, respiratory rate 18, 97% on room air with most recent vital sign assessments T97.7, heart rate 110, BP 109/76, respiratory rate 20, 93% on room air, CBC with a BC 16, human 14.6, platelet 354 with left shift and lymphopenia, coags with INR 1.7, PT 19.7, CMP with sodium 133, potassium 5.3, BUN/creatinine 84/4.33, glucose 111, T. bili 0.90, AST/ALT 197/451, lipase 38, urinalysis with no obvious evidence of infection, gallbladder ultrasound being obtained per ED physician upon request evaluation of patient. In the ED patient ministered 1 L normal saline, albuterol inhalation x1, dextrose amp, insulin as well as Zofran 4 mg IV x1. FOR[facility]LY [facility] Medical History Acute constipation Acute exacerbation of chronic low back pain Acute gastrointestinal bleeding Acute kidney injury superimposed on chronic kidney disease Ambulates with cane Anemia Arthritis Atherosclerotic heart disease of [place] coronary artery without angina pectoris Atrial fibrillation Atypical atrial flutter (12/2020) Back pain Benign prostatic hyperplasia BPH (benign prostatic hyperplasia) Cancer Cardiology follow-up encounter Chronic anemia Chronic heart failure with preserved ejection fraction (HFpEF) Chronic kidney disease Chronic renal insufficiency Colitis CPAP (continuous positive airway pressure) dependence Debility Diarrhea Difficulty chewing Dysphagia Easy bruising Elevated LFTs Elevated liver enzymes Essential (primary) hypertension Excessive bleeding Gastric reflux GI bleed (2012) Hiatal hernia High cholesterol History of colon polyps History of diverticulitis History of echocardiogram History of edema History of heart attack History of hyperthyroidism History of leukemia History of pain when walking History of renal disease History of stress test HLD (hyperlipidemia) Kidney disease Kidney stones Myocardial infarct Nausea and vomiting Non-rheumatic tricuspid valve insufficiency Non-smoker Nonrheumatic mitral (valve) insufficiency 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 Osteoarthritis Paroxysmal atrial fibrillation Secondary pulmonary arterial hypertension Sleep apnea Sleep apnea Stage 3b chronic kidney disease Thoracic aortic aneurysm (TAA) Thyroid disease Wears glasses Home Medications denosumab 60 mg/mL subcutaneous syringe (Prolia) 60 mg SQ .[id number] BONES 12/09/20 [History Last Taken 11/10/22] tamsulosin 0.4 mg capsule 0.4 mg PO QHS bladder 11/18/21 [History Last Taken 02/12/23] levothyroxine 25 mcg tablet 50 mcg PO DAILY thyroid 02/17/22 [History Last Taken 02/12/23] baclofen 5 mg tablet 5 mg PO TID PRN muscle spasms 05/01/22 [History Last Taken Unknown] coenzyme Q10 100 mg capsule (Co Q-10) 100 mg PO DAILY supplement 05/01/22 [History Last Taken 02/12/23] vitamin B complex 1 cap PO BID supplement 05/01/22 [History Last Taken 02/12/23] acetaminophen 500 mg capsule 1,000 mg PO Q6H PRN Pain 06/15/22 [History Last Taken Unknown] linaclotide 72 mcg capsule (Linzess) 72 mcg PO DAILY PRN Diarrhea 06/15/22 [History Last Taken Unknown] ascorbic acid (vitamin C) 500 mg tablet 500 mg PO DAILY supplement 07/20/22 [History Last Taken 02/12/23] finasteride 5 mg tablet 5 mg PO DAILY prostate 08/05/22 [History Last Taken 02/12/23] multivitamin 1 tab PO DAILY supplement 08/16/22 [History Last Taken 02/12/23] furosemide 40 mg tablet 40 mg PO BID PRN Weight Gain 11/25/22 [History Last Taken Unknown] diltiazem HCl 120 mg capsule,extended release 24 hr 120 mg PO BID heart #60 caps 11/30/22 [Rx Last Taken 02/12/23] cholecalciferol (vitamin D3) 25 mcg (1,000 unit) capsule (Vitamin D3) 1,000 unit PO DAILY supplement 02/19/23 [History Last Taken Unknown] isosorbide mononitrate 30 mg tablet,extended release 24 hr 30 mg PO BID heart 02/19/23 [History Last Taken Unknown] polyethylene glycol 3350 17 gram oral powder packet 17 g PO DAILY constipation 02/19/23 [History Last Taken Unknown] vitamin A 7,500 mcg (25,000 unit) capsule 25,000 unit PO DAILY supplement 02/19/23 [History Last Taken Unknown] amiodarone 100 mg tablet 100 mg PO BID heart 02/21/23 [History Last Taken Unknown] fkmjjy-[id number]-vggazmf 36,000-114,000-180,000 unit capsule,delay rel (Creon) See Rx Instructions PO .COMPLEX digestion 02/21/23 [History Last Taken Unknown] warfarin 4 mg tablet See Rx Instructions .Route .COMPLEX blood thinner 02/21/23 [History Last Taken Unknown] hydromorphone 2 mg tablet 1 - 2 mg (0.5 - 1 x 2 mg) PO Q6H PRN Pain Score 4-10 3 days #12 tabs 03/21/23 [Rx Last Taken Unknown] ondansetron 4 mg disintegrating tablet 4 mg PO Q8H PRN PRN Nausea And Vomiting 30 days #90 tabs 03/21/23 [Rx Last Taken Unknown] pantoprazole 40 mg tablet,delayed release 40 mg PO DAILY 30 days #30 tabs 03/21/23 [Rx Last Taken Unknown] sucralfate 1 gram tablet 1 g PO TID@0700,1100,1600 30 days #90 tabs 03/21/23 [Rx Last Taken Unknown] famotidine 40 mg tablet 40 mg PO DAILY stomach #30 tabs 04/11/23 [Rx Last Taken Unknown] metoprolol tartrate 25 mg tablet 25 mg PO BID heart 04/29/23 [History Last Taken Unknown] lidocaine 5 % topical patch 1 patch topical DAILY 05/05/23 [History Last Taken Unknown] spironolactone 25 mg tablet 25 mg PO DAILY #90 tabs 05/05/23 [Rx Last Taken Unknown] magnesium citrate 300 ml PO DAILY PRN constipation #296 mL 05/07/23 [Rx Last Taken Unknown] lactulose 10 gram/15 mL oral solution 10 g (15 mL) PO DAILY 30 days #450 mL 05/18/23 [Rx Last Taken Unknown] warfarin 2 mg tablet See Rx Instructions PO .COMPLEX blood thinner #90 tabs 05/27/23 [Rx Last Taken Unknown] cefdinir 300 mg capsule 300 mg PO Q12H 06/16/23 [History Last Taken Unknown] loratadine 10 mg tablet (Claritin) 10 mg PO DAILY 06/16/23 [History Last Taken Unknown] Allergy/AdvReac Type Severity Reaction Status Date / Time diclofenac Allergy rash Verified 06/16/23 10:29 prednisone Allergy Rash Verified 06/16/23 10:29 Family History Father Cancer Prostate cancer Mother Hypertension Sister Hypertension Surgical History History of back surgery History of back surgery History of cardiac catheterization History of cardioversion (06/18/19) History of coronary artery stent placement (08/04/00) History of electrophysiologic study (08/08/00) History of esophagogastroduodenoscopy (EGD) History of hemorrhoidectomy History of hernia repair History of left heart catheterization (07/17/12) History of Zenaida fundoplication History of radiofrequency ablation procedure for cardiac arrhythmia (11/11/11) Social History household members: none Smoking Status: Never smoker alcohol intake: never substance use type: does not use caffeine: No ROS ROS Narrative Admission Review of Systems: CONSTITUTIONAL: No weight loss, fever, chills, + weakness or fatigue. HEENT: Eyes: No visual loss, blurred vision, double vision or yellow sclerae. Ears, Nose, Throat: No hearing loss, sneezing, congestion, runny nose or sore throat. SKIN: No rash or itching, lesions, wounds. CARDIOVASCULAR: No chest pain, chest pressure or chest discomfort, palpitations, edema, orthopnea, syncopal events. RESPIRATORY: No shortness of breath, cough or sputum, wheezing, hemoptysis. GASTROINTESTINAL: + anorexia, nausea, vomiting, diarrhea. No abdominal pain, melena, BRBPR. GENITOURINARY: + Recent UTI, denies any further dysuria, frequency, urgency or retention. NEUROLOGICAL: No headache, dizziness, syncope, paralysis, ataxia, numbness or tingling in the extremities, focal weakness, change in bowel or bladder control, seizure. MUSCULOSKELETAL: + muscle, back pain, joint pain or stiffness. HEMATOLOGIC: No anemia, bleeding or bruising. LYMPHATICS: No enlarged nodes. No history of splenectomy. PSYCHIATRIC: No history of depression or anxiety. ENDOCRINOLOGIC: No reports of sweating, cold or heat intolerance. No polyuria or polydipsia. ALLERGIES: No history of asthma, hives, eczema or rhinitis. Vital Signs Vital Signs Vital Signs: 06/16/23 10:29 06/16/23 10:46 06/16/23 12:39 Temperature 97.1 F L 98.1 F Temperature Source Temporal Oral Pulse Rate 102 H 88 97 Respiratory Rate 18 17 Blood Pressure 96/68 137/66 H Blood Pressure Mean 77 89 Pulse Ox 97 96 Oxygen Delivery Method Room Air Room Air 06/16/23 12:50 06/16/23 15:13 Temperature 97.5 F L 97.7 F L Temperature Source Oral Oral Pulse Rate 116 H 110 H Respiratory Rate 17 20 H Blood Pressure 94/64 109/76 Blood Pressure Mean 74 87 Pulse Ox 95 93 Oxygen Delivery Method Room Air Room Air Weight Weight: 128 lb 4.944 oz Body Mass Index (BMI) 19.5 Physical Exam Narrative Physical Examination: General: Awake, alert, oriented x 3 and cooperative, seated upright in ED bed in no apparent distress, fatigued appearing, notes feeling improved in regard to nausea. Skin: Normal color, normal turgor, no icterus, no cyanosis except occasional abrasion. HEENT: AT/NC, EOMI, PERRLA, dry MM, no carotid bruits or JVD noted. Lungs: Diminished, > bases, appropriate effort, no rales, ronchi or wheezing. Heart: Tachycardic; no gallop, rub audible. Abdomen: Soft, thin habitus NTTP, ND, normal BS, no HSM. Extremities: No cyanosis, clubbing, or edema. Neurological: Patient awake, alert, oriented as noted, cognitive function intact; pupils equally reactive to light and accommodation, cranial nerves II-XII grossly normal, moving all 4 extremities, no focal deficits, strength moderately globally decreased secondary to acute presentation. Psychiatric: Affect appears flat, fatigued, no acute evidence of depressive or anxiety feelings. Results Lab / Micro Data 06/16/23 10:44 06/16/23 10:44 Labs: Laboratory Results - last 24 hr 06/16/23 10:44: WBC 16.0 H, RBC 4.37 L, Hgb 14.6, Hct 44.1, MCV 100.9 H, MCH 33.4 H, MCHC 33.1, RDW Std Deviation 67.3 H, RDW Coeff of [place] 18.4 H, Plt Count 354, MPV 9.8, Immature Gran % (Auto) 1.600 H, Neut % (Auto) 88.7 H, Lymph % (Auto) 2.7 L, [place] % (Auto) 6.5, Eos % (Auto) 0.1, Baso % (Auto) 0.4, Absolute Neuts (auto) 14.2 H, Absolute Lymphs (auto) 0.44 L, Nucleated RBC % 0, PT 19.7 H, INR 1.7, Sodium 133 L, Potassium 5.3 H, Chloride 100, Carbon Dioxide 24.0, Anion Gap 9, BUN 84 H, Creatinine 4.33 H, Estim Creat Clear Calc 11.01, Est GFR (MDRD) Af Amer 17 L, Est GFR (MDRD) Non-Af 14 L, BUN/Creatinine Ratio 19.4, Glucose 111 H, Calcium 9.0, Total Bilirubin 0.90, AST 197 H, ALT 451 H, Alkaline Phosphatase 83, Total Protein 7.4, Albumin 3.1 L, Globulin 4.3 H, Albumin/Globulin Ratio 0.7 L, Lipase 38 06/16/23 13:45: Urine Color Yellow, Urine Clarity Sl. Cloudy, Urine pH 5.0, Ur Specific [place] 1.015, Urine Protein Negative, Urine Glucose (UA) 100 H, Urine Ketones Negative, Urine Occult Blood Negative, Urine Nitrite Negative, Urine Bilirubin Negative, Urine Urobilinogen Normal, Ur Leukocyte Esterase Negative, Urine RBC 0 SEEN, Urine WBC 0-5 SEEN, Ur Squamous Epith Cells 0-5 SEEN, Urine Bacteria 0 SEEN, Urine Mucus 0 SEEN Assessment & Plan Assessment/Plan (1) FE (acute kidney injury): PLAN: Plan The patient is a 82 y/o M w/ PMHx: HFpEF, COPD, HTN, HLD, Hypothyroidism, Tobacco use, PAF/Flutter s/p RFA, GERD, ALVARADO on CPAP, TAA, GERD s/p zenaida, CAD s/p PCI, Chronic pain syndrome, Chronic constipation, Chronic pancreatic insufficiency who presents to the [facility] ED on 06/16/23 with history of persistent nausea, emesis and loose stools with abnormal labs per PCP with evaluation approximate 1 week prior to his doctor's office with urinary type symptoms at that time placed on oral antibiotics secondary to dysuria history with follow-up 2 days prior to current presentation with antibiotics altered secondary to symptoms ongoing with then onset of nausea and emesis, diarrhea with no abdominal pain or any fever although patient does report he is not started taking the cefdinir which she was switched to recently with urine culture noted pansensitive to E. coli with recheck of his urine and culture 2 days ago through the office that was unremarkable however patient's creatinine has been trending upward prompting ED referral. #1. Intractable nausea, emesis and diarrhea, possibly associated with recent antibiotic therapy and UTI: Urinalysis today not marked appearing and recent urinalysis and urine culture in the office unremarkable, will hold further antibiotic therapy especially given bactrim is likely source in part of the FE as well as GI losses, allow clears if clinically improving, maintain on judicious IV fluids, will obtain C. difficile and enteric pathogen to assure no infectious etiology and if this is the case will start antidiarrheal medication, will have as needed antiemetic regimen, gallbladder ultrasound is noted pending upon evaluation. COVID antigen requested. #2. Acute kidney injury on CKD stage IIIb (per review of historial GFR trend): Secondary to acute presentation as noted #1, worsening in addition to medications as patient of note was on Bactrim initially for 5 days for urinary tract infection. Admission BUN/Cr 84/4.33, prior baseline creatinine noted to be previously 1.4-2.0 however this certainly could have been an acute event but in the past appears to range similarly, 06/13/2023 creatinine increased to 3.71 and most recently 06/14/2023 creatinine 4.06, will judiciously hydrate, hold nephrotoxic medications and repeat chemistry in AM. If no improvement would plan FeNa and renal ultrasound assessment. #3. Hyperkalemia, mild: Admission potassium 5.3, continue to judiciously hydrate, already administered aggressive regimen of insulin, dextrose and albuterol in the ED, repeat CMP in AM. #4. Acute on Chronic Transaminitis: Admission CMP with T. bili 0.90, AST/ALT 197/451, has previously been elevated in the past but not as high as currently however patient significantly dehydrated, will continue treatment as noted and repeat CMP in a.m., gallbladder ultrasound pending per ED. #5. Chronic HFpEF: 05/19/2023 echocardiogram with normal LV size, EF 53%, moderate concentric LVH, PASP 40 mmHg with pulmonary pressures improved from previous comparison echo. Given presentation judiciously hydrating, monitor for any fluid overload, temporally holding metoprolol as well as Lasix given hypotension and acute kidney injury, per current list not on statin therapy suspected likely secondary to chronic issues with transaminitis, not on ARIELLE Imdur/ARB of note. #6. Chronic COPD: From current list not on any chronic inhalers, will have PRN albuterol, HOB, IS parameters. #7. Chronic pain syndrome: We will verify if appropriate we will continue patient chronic home oral Dilaudid regimen. #8. PAF/Flutter: s/p RFA history, will continue patient home amiodarone regimen, holding diltiazem and metoprolol, continue Coumadin with trending. #9. Hypertension: Patient upon presentation with low BP likely secondary to all of the GI losses, will hold all hypertensive regimen, resume once clinically appropriate and acute kidney injury resolved for those medications which affect renal function. #10. Hyperlipidemia: Not on regimen, likely secondary to chronic issues with transaminitis per chart history. #11. Chronic pancreatic insufficiency: We will continue patient home Creon regimen. #12. Hypothyroidism: We will continue patient on levothyroxine. #13. Chronic constipation: We will hold patient chronic home lactulose given diarrhea report. #14. GERD with history of suspected gastritis: We will continue patient home PPI with altered dosing as well as sucralfate. #15. BPH: We will continue patient on Flomax and finasteride regimen. #16. Tobacco Abuse: Encouraged cessation, inpatient consultation per RT, NR if desired. #17. ALVARADO: Given intractable recent N/V, will hold on usage of CPAP until resolved. #18. DVT prophylaxis: We will continue Coumadin with INR trending. #19. CODE status: Patient LILI is his sister in law Neelima and his sister Olivia and living will is currently in place. Discussed CODE status at length including difference between FULL code, DNR-CCA and DNR-CC status. Following discussions about the differences in these status, requested Full code status. Advanced Care Planning Face to Face Time: 16 minutes. Charges/Coding Visit Charges Inpatient E&M: 51290 Init Hosp L3 Procedures Hospitalists Procedures: 49726 Advncd Care Plan 30 Min
[2023-06-16 17:23] LABS: Procalcitonin 0.16 ng/mL (0.00-0.09)
[2023-06-16 17:23] LABS: Lactic Acid 3.2 mmol/L (0.4-1.9)
[2023-06-16 20:41] LABS: Reflex Lactate? Y
[2023-06-16] MEDS: 0.9% Normal Saline (1000mL) 1,000 ML 100 ML IV (23:40)
[2023-06-16] MEDS: Sucralfate 1 GM Tablet PO (23:41)
[2023-06-16] MEDS: Pantoprazole Sodium 40 MG Tablet PO (23:41)
[2023-06-16] MEDS: Tamsulosin HCl 0.4 MG Capsule PO (23:41)
[2023-06-16] MEDS: Jantoven 2 MG Tablet PO (23:41)
[2023-06-16] MEDS: Amiodarone 200 MG Tablet 100 MG PO (23:41)
[2023-06-17 01:37] VITALS: BP 117/71; PULSE 100; RESP 18; TEMP 36.7; O2SAT 95
[2023-06-17 06:00] VITALS: BMI 19.1
[2023-06-17 06:02] VITALS: BP 109/75; PULSE 82; RESP 16; TEMP 36.6; O2SAT 94
[2023-06-17] MEDS: Sucralfate 1 GM Tablet PO ×3 (06:09→16:25)
[2023-06-17] MEDS: Levothyroxine 50 MCG Tablet PO (06:09)
[2023-06-17 06:14] LABS: Absolute Lymphocyte Count 0.44 X10^3/uL (0.83-4.51); Absolute Neutrophil Count 8.8 X10^3/uL (2.0-7.7); Basophil# 0.03 X10^3/uL; Basophil% 0.3 % (0-1); Eosinophil# 0.06 X10^3/uL; Eosinophils% 0.6 % (0-5); Hematocrit 35.3 % (40-54); Hemoglobin 11.6 g/dL (13.0-16.5); Lymphocyte # 0.44 X10^3/ul (0.83-4.51); Lymphocyte % 4.3 % (19-41); Mean Corp Hgb Conc 32.9 g/dL (32-36); Mean Corpuscular Hgb 33.3 pg (27.0-32.0); Mean Corpuscular Volume 101.4 fL (80-94); Mean Platelet Vol. 9.9 fl (6.2-12.0); Monocyte# 0.66 X10^3/uL; Monocyte% 6.5 % (0-10); NRBC Flagged by Analyzer 0 % (0-5); Neutrophil # 8.82 X10^3/uL (2.7-7.7); Neutrophil % 87.2 % (47-70); POSITIVE DIFFERENTIAL YES; POSITIVE MORPHOLOGY YES; Platelet Count 209 K/mm3 (150-450); RBC Distribution Width SD 67.1 fl (35.1-43.9); Red Blood Count 3.48 M/mm3 (4.6-6.2); White Blood Count 10.1 K/mm3 (4.4-11.0)
[2023-06-17 06:16] LABS: Differential Indicated SCAN CRITERIA MET
[2023-06-17 06:20] LABS: International Normalized Ratio 1.7; Prothrombin Time (Protime)PT. 19.6 SECONDS (11.7-14.9)
[2023-06-17 06:39] LABS: ALB/GLOB Ratio 0.8 RATIO (0.9-2.4); AST(SGOT) 159 U/L (15-37); Alanine Aminotransfer ALT/SGPT 355 U/L (16-61); Albumin, Serum 2.5 g/dL (3.2-5.0); Alkaline Phosphatase 57 U/L (45-117); Anion Gap 4 (5-15); BUN 70 mg/dL (7-18); Chloride 110 mmol/L (98-107); Creatinine, Serum 3.04 mg/dL (0.70-1.30); EST Glomerular Filtration Rate 21 mL/min (>60); Est Glom Filt Rate - Afr Amer 26 mL/min (>60); Globulin 3.1 g/dL (2.2-4.2); Glucose 83 mg/dL (74-106); Protein, Total 5.6 g/dL (6.4-8.2); Sodium Level 137 mmol/L (136-145)
[2023-06-17 06:53] LABS: Anisocytosis 2+; Differential Comment SCANNED
[2023-06-17] MEDS: 0.9% Normal Saline (1000mL) 1,000 ML 100 ML IV (08:24)
[2023-06-17] MEDS: Amiodarone 200 MG Tablet 100 MG PO ×2 (08:30→22:09)
[2023-06-17] MEDS: Ascorbic Acid 500 MG Tablet PO (08:30)
[2023-06-17] MEDS: Finasteride 5 MG Tablet PO (08:30)
[2023-06-17] MEDS: Pantoprazole Sodium 40 MG Tablet PO (08:30)
[2023-06-17 08:33] VITALS: BP 127/85; PULSE 83; RESP 16; TEMP 36.8; O2SAT 96
[2023-06-17 08:41] VITALS: O2SAT 93
[2023-06-17] MEDS: Acetaminophen 325 MG Tablet 650 MG PO ×2 (11:06→22:08)
[2023-06-17] MEDS: Ondansetron 4 MG/2 ML Vial IV (12:50)
[2023-06-17] MEDS: 0.9% Saline Lock 10 ML Syringe IV (12:51)
--- NOTE | 2023-06-17 14:22 | CASEMGMT ---
RADHA PORTER into pt room for assessment, pt states that he needs to use the bathroom. RN GERMAN will check back.
--- NOTE | 2023-06-17 15:00 | CASEMGMT ---
RADHA PORTER Assessment: Face to Face with pt for initial transition planning/care coordination assessment. RADHA PORTER introduced self and role at [facility], pt voices understanding and consents to assessment. Pt is A&O x4 and answers all questions appropriately at this time. Pt sitting on bsc, stating to complete assessment with him there as he cannot get off the toilet. Care providers, pharmacy, and demographics verified/updated. Admitting Dx: FE, N/V/D elevated LFTs PCP:Amor Specialists: Jesse, cardio; Lazaroi, pain mgmt; Friend, GI Preferred Pharmacy: [facility] Insurance: [employer] Prescription Benefit: yes LNOK: Neelima Durant, sister in law; Olivia Dunn, sister Living Arrangements: Pt lives alone in a single story home with 2 steps to enter with a rail. Pt states for the last 5 weeks he has been having difficulty managing at home. He states he will do a little bit and then lay down. Pt states he gets meals on wheels. Pt states if he had to dc today or tomorrow, he is too weak to return home. Transportation: Pt shayy provides transportation for pt. DME:[facility] HHC/SNF:[facility] HHC and HHC in [place] in the past, denies SNF stays. Pt aware we will see how he progresses with therapy prior to making a dc plan. RADHA PORTER to follow up tomorrow. Pt states no further concerns/needs. Advised pt to ask CM if any further question/concerns/needs arise, voices understanding. Pt Goal: Home vs SNF Plan: TBD
--- NOTE | 2023-06-17 15:06 | PCM.PN.HOSP ---
Reason for Visit Reason for Visit: Diagnoses Acute kidney failure, unspecified (06/16/23) Subjective Subjective Patient seen at bedside this morning. Sitting comfortably in bed, conversing normally, no acute distress. Patient reports significant improvement of his abdominal pain and nausea since yesterday. Has not had any bowel movements since admission. Denies any fevers or chills. Does report mild burning with urination at start of stream that improves throughout episode of urination. Has had small amount of clear liquids to this point without issue. Patient states that he lives at home on his own, has done fine taking care of himself until last few days. Patient otherwise denies any acute pain or discomfort this morning. No other acute concerns currently. Objective Data Objective Data Vital Signs: Vital Signs Temp Pulse Resp BP Pulse Ox O2 Del Method 98.2 F 83 16 127/85 H 93 Room Air 06/17/23 08:33 06/17/23 08:33 06/17/23 08:33 06/17/23 08:33 06/17/23 08:41 06/17/23 08:41 Oxygen Delivery Method Room Air Weight: 57 kg Body Mass Index (BMI) 19.1 Intake & Output: Intake and Output for Last 24 Hours 06/15/23 06/16/23 06/17/23 23:59 23:59 23:59 Intake Total 1620 / 1620 1386.66 / 1386.66 Output Total 425 / 425 Balance 1620 / 1620 961.66 / 961.66 Medical Nutrition Assessment Dietitian: Malnutrition Criteria Met Start: 06/17/23 10:48 Freq: Status: Active Protocol: Document 06/17/23 10:48 SLA (Rec: 06/17/23 10:48 SLA Desktop) Nutrition Malnutrition Evidence of Malnutrition Exists Yes Malnutrition (severe): Acute Illness/Injury Evidenced By Suboptimal Energy Intake ( Severe),Weight Loss (Severe) Clinical Problem Acute Disease or Injury Related Malnutrition Etiology related to 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 Whitfield w/ 4 oz ensure plus high protein tid w / meals Consider appetite stimulant if po intake fails to improve w/ improvement in GI function. Lab / Micro Data 06/17/23 05:25 06/17/23 05:25 Labs: Laboratory Results - last 24 hr 06/16/23 16:15: Lactic Acid 3.2 H* 06/16/23 16:25: Procalcitonin 0.16 H 06/16/23 22:00: Lactic Acid 1.0 06/17/23 05:25: WBC 10.1, RBC 3.48 L, Hgb 11.6 L, Hct 35.3 L, MCV 101.4 H, MCH 33.3 H, MCHC 32.9, RDW Std Deviation 67.1 H, RDW Coeff of Pablo 18.0 H, Plt Count 209, MPV 9.9, Immature Gran % (Auto) 1.100 H, Neut % (Auto) 87.2 H, Lymph % (Auto) 4.3 L, [place] % (Auto) 6.5, Eos % (Auto) 0.6, Baso % (Auto) 0.3, Absolute Neuts (auto) 8.8 H, Absolute Lymphs (auto) 0.44 L, Nucleated RBC % 0, Differential Comment SCANNED, Anisocytosis 2+, PT 19.6 H, INR 1.7, Sodium 137, Potassium 5.0, Chloride 110 H, Carbon Dioxide 23.0, Anion Gap 4 L, BUN 70 H, Creatinine 3.04 H, Estim Creat Clear Calc 15.10, Est GFR (MDRD) Af Amer 26 L, Est GFR (MDRD) Non-Af 21 L, BUN/Creatinine Ratio 23.0 H, Glucose 83, Calcium 8.0 L, Total Bilirubin 0.80, AST 159 H, ALT 355 H, Alkaline Phosphatase 57, Total Protein 5.6 L, Albumin 2.5 L, Globulin 3.1, Albumin/Globulin Ratio 0.8 L Micro: Microbiology 06/16/23 18:35 Nasal Secretion SARS-CoV-2 Antigen (Rapid) - Final Radiography Diagnostic Testing: Radiology Impression Gallbladder Ultrasound 06/16/23 11:57 IMPRESSION: Bilateral renal cysts. No hydronephrosis. Electronically Signed: Frandy Faustin MD at 15:39 EDT , Physical Exam Const alert Constitutional Narrative: Pleasant elderly male, thin appearing, sitting comfortably in bed, answering questions appropriately and conversing normally, no acute distress. General Appearance: cooperative and comfortable HEENT normocephalic, head/scalp atraumatic, hearing grossly normal bilaterally, nasal mucous membranes and turbinates normal and moist oral mucous membranes Eyes PERRL, EOMs intact bilaterally and conjunctivae normal Neck full ROM, no lymphadenopathy and supple Lymph Lymphatic: no lymphadenopathy noted Chest inspection of chest normal Resp normal respiratory effort, normal air movement, no use of accessory muscles and clear to auscultation bilaterally Cardio regular rate, regular rhythm, no murmurs and peripheral pulses 2+ throughout GI GI Narrative: Abdomen soft to palpation, nondistended, mildly tender to palpation diffusely. Back/Spine normal ROM Extremity normal to inspection, full ROM and no pedal edema Skin no rashes or lesions noted Psych mental status grossly normal Assessment & Plan Assessment/Plan (1) FE (acute kidney injury): PLAN: Plan Patient is an 83-year-old male with history of HFpEF, CKD stage IIIb, chronic pain, PAF/flutter, hypertension, chronic pancreatic insufficiency, GERD and BPH who presented to [facility] ED on 06/16/2023 with nausea, vomiting and diarrhea. 1. FE on CKD stage IIIb, recent UTI Likely secondary to hypovolemia with hypotension, with recent Bactrim use for UTI contributing. Started on Bactrim for UTI by PCP about 1 week prior to admission. Completed 5 days of Bactrim, then de-escalated to cefdinir as urine culture grew E. coli, however patient never took cefdinir. BUN 84, creatinine 4.33 on admit. Baseline creatinine appears to be 1.4-2.0. Creatinine improved to 3.04 on 06/17 with IV fluids. UA on admit not consistent with infection. ? Monitor BMP daily and urine output. No need for further antibiotic treatment at this time. 2. Intractable nausea/vomiting and diarrhea, improving Unclear etiology, but nausea/vomiting and diarrhea resolved shortly after admission. Gallbladder ultrasound on 06/16 with no acute RUQ abnormality. WBC count of 16 on admit, improved to 10 on 06/17; notably had drop in all cell lines, suspect patient was very hemoconcentrated on admit. Unable to obtain enteric pathogen stool as patient has not had any bowel movements since admission. ? Monitor. Treat symptomatically as needed. 3. Hypotension, history of hypertension Most likely secondary to poor p.o. intake and GI losses prior to admission. Home medications of Lasix, Cardizem, metoprolol, amiodarone and Flomax. BP 90s over 60s on admit. Somewhat improved with IV fluid resuscitation on admission. ? Monitor BP closely. Holding home Lasix, Cardizem and metoprolol for now. Okay to continue home amiodarone and Flomax. Will restart other home medications as able. Okay for p.o. intake, will hold on further IV fluids for now. 4. Debility Lives at home on his own and able to complete all ADLs at baseline. Patient reports feeling acutely debilitated over the last week was not able to do much for himself at home, likely due to his recent infection and poor p.o. intake with GI losses as noted above. ? PT/OT/case management consulted. Likely home with home health care on discharge. 5. Mild hyperkalemia, improved ? Potassium 5.3 on admit, improved with IV fluids. Monitor BMP daily. Chronic medical conditions: ? PAF/flutter: S/p RFA history. Continue home amiodarone and warfarin. Holding home Cardizem and metoprolol due to mild hypotension, restart as able. ? HFpEF: Echo 05/19/2023 showed EF 53%, moderate concentric LVH, mild pulmonary hypertension. Holding home Lasix for now given hypotension as noted above, restart as needed. ? Chronic pancreatic insufficiency: Continue home Creon. ? Hypothyroidism: Continue home Synthroid. ? GERD: Continue home PPI and sucralfate. ? BPH: Continue home Flomax and finasteride. DVT prophylaxis: Warfarin CODE STATUS: Full code, verified Expected disposition: Home with home health care, 1 to 2 days Total clinical time spent by myself addressing the patient's medical issues, reviewing all the data, and collaborating with patient's care team: 35 minutes. Charges/Coding Visit Charges Inpatient E&M: 55187 Subs Hosp L2
[2023-06-17 16:31] VITALS: BP 99/62; PULSE 88; RESP 14; TEMP 36.7; O2SAT 98
[2023-06-17 20:37] VITALS: BP 100/66; PULSE 97; RESP 18; TEMP 36.6; O2SAT 96
[2023-06-17] MEDS: MELATONIN 3 MG TABLET PO (22:08)
[2023-06-17] MEDS: Tamsulosin HCl 0.4 MG Capsule PO (22:09)
[2023-06-18 02:28] VITALS: BP 128/89; PULSE 75; RESP 16; TEMP 36.6; O2SAT 95
[2023-06-18] MEDS: Ondansetron 4 MG/2 ML Vial IV (02:59)
[2023-06-18] MEDS: MENTHOL 226.8 GM JAR 1 APPLIC TOPICAL ×4 (03:18→22:47)
[2023-06-18 05:39] VITALS: BMI 19.1
[2023-06-18] MEDS: Levothyroxine 50 MCG Tablet PO (05:52)
[2023-06-18] MEDS: Sucralfate 1 GM Tablet PO ×3 (05:52→16:24)
[2023-06-18 07:05] VITALS: O2SAT 93
[2023-06-18 07:21] LABS: Hematocrit 33.7 % (40-54); Hemoglobin 11.1 g/dL (13.0-16.5); Mean Corp Hgb Conc 32.9 g/dL (32-36); Mean Corpuscular Hgb 33.5 pg (27.0-32.0); Mean Corpuscular Volume 101.8 fL (80-94); Mean Platelet Vol. 9.9 fl (6.2-12.0); POSITIVE MORPHOLOGY YES; Platelet Count 210 K/mm3 (150-450); RBC Distribution Width CV 18.2 % (11.6-14.6); RBC Distribution Width SD 68.1 fl (35.1-43.9); Red Blood Count 3.31 M/mm3 (4.6-6.2); White Blood Count 10.2 K/mm3 (4.4-11.0)
[2023-06-18 07:26] LABS: Scan Indicated on CBC? Y/N YES- FLAGS NOTED
[2023-06-18 07:37] LABS: Anion Gap 5 (5-15); BUN 51 mg/dL (7-18); Calcium,Total 7.8 mg/dL (8.5-10.1); Chloride 111 mmol/L (98-107); Creatinine, Serum 2.55 mg/dL (0.70-1.30); EST Glomerular Filtration Rate 26 mL/min (>60); Est Glom Filt Rate - Afr Amer 31 mL/min (>60); Estimated Creatinine Clearance 18.07 ml/min; Glucose 86 mg/dL (74-106); Potassium 4.5 mmol/L (3.5-5.1); Sodium Level 139 mmol/L (136-145)
[2023-06-18 08:52] VITALS: BP 127/91; PULSE 95; RESP 18; TEMP 36.7; O2SAT 99
[2023-06-18] MEDS: Ascorbic Acid 500 MG Tablet PO (09:03)
[2023-06-18] MEDS: Pantoprazole Sodium 40 MG Tablet PO (09:03)
[2023-06-18] MEDS: Acetaminophen 325 MG Tablet 650 MG PO ×2 (09:03→17:24)
[2023-06-18] MEDS: Amiodarone 200 MG Tablet 100 MG PO ×2 (09:03→22:46)
[2023-06-18] MEDS: Finasteride 5 MG Tablet PO (09:03)
--- NOTE | 2023-06-18 09:09 | NURSING ---
pt declines prn nausea medications, states he feels it is from his arthritis pain so prn meds given for that.
--- NOTE | 2023-06-18 13:52 | PN.HOSP_ITS ---
Reason for Visit Reason for Visit: Diagnoses Acute kidney failure, unspecified (06/16/23) Subjective Subjective Patient seen at bedside this morning. Laying comfortably in bed, conversing normally, no acute distress. Patient does appear more fatigued this morning than yesterday. States that he had several episodes of diarrhea yesterday, resolved overnight. However, he has not had much to eat or drink since then and generally feels weaker than his baseline. Reports fairly good urine output. Currently denies any nausea, has had no episodes of vomiting since admission. Denies any fevers or chills. Denies any chest pain or shortness of breath. No other acute concerns morning. Objective Data Objective Data Vital Signs: Vital Signs Temp Pulse Resp BP Pulse Ox O2 Del Method 98.0 F 95 18 127/91 H 99 Room Air 06/18/23 08:52 06/18/23 08:52 06/18/23 08:52 06/18/23 08:52 06/18/23 08:52 06/18/23 08:52 Oxygen Delivery Method Room Air Weight: 57.2 kg Body Mass Index (BMI) 19.1 Intake & Output: Intake and Output for Last 24 Hours 06/16/23 06/17/23 06/18/23 23:59 23:59 23:59 Intake Total 1620 / 1620 1386.66 / 1386.66 400 / 400 Output Total 425 / 425 100 / 100 Balance 1620 / 1620 961.66 / 961.66 300 / 300 Medical Nutrition Assessment Dietitian: Malnutrition Criteria Met Start: 06/17/23 10:48 Freq: Status: Active Protocol: Document 06/17/23 10:48 ARACELIS (Rec: 06/17/23 10:48 ARACELIS Desktop) Nutrition Malnutrition Evidence of Malnutrition Exists Yes Malnutrition (severe): Acute Illness/Injury Evidenced By Suboptimal Energy Intake ( Severe),Weight Loss (Severe) Clinical Problem Acute Disease or Injury Related Malnutrition Etiology 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 Whitfield w/ 4 oz ensure plus high protein tid w / meals Consider appetite stimulant if po intake fails to improve w/ improvement in GI function. Lab / Micro Data 06/18/23 06:30 06/18/23 06:30 Labs: Laboratory Results - last 24 hr 06/18/23 06:30: WBC 10.2, RBC 3.31 L, Hgb 11.1 L, Hct 33.7 L, MCV 101.8 H, MCH 33.5 H, MCHC 32.9, RDW Std Deviation 68.1 H, RDW Coeff of Pablo 18.2 H, Plt Count 210, MPV 9.9, Differential Comment , Sodium 139, Potassium 4.5, Chloride 111 H, Carbon Dioxide 23.0, Anion Gap 5, BUN 51 H, Creatinine 2.55 H, Estim Creat Clear Calc 18.07, Est GFR (MDRD) Af Amer 31 L, Est GFR (MDRD) Non-Af 26 L, BUN/Creatinine Ratio 20.0, Glucose 86, Calcium 7.8 L Micro: Microbiology 06/17/23 12:05 Stool Enteric Bacteriology - Final 06/16/23 18:35 Nasal Secretion SARS-CoV-2 Antigen (Rapid) - Final Physical Exam Const alert Constitutional Narrative: Pleasant elderly male, thin appearing, sitting comfortably in bed, appears fatigued this morning but otherwise conversing normally, no acute distress. General Appearance: cooperative and comfortable HEENT normocephalic, head/scalp atraumatic, hearing grossly normal bilaterally, nasal mucous membranes and turbinates normal and moist oral mucous membranes Eyes PERRL, EOMs intact bilaterally and conjunctivae normal Neck full ROM, no lymphadenopathy and supple Lymph Lymphatic: no lymphadenopathy noted Chest inspection of chest normal Resp normal respiratory effort, normal air movement, no use of accessory muscles and clear to auscultation bilaterally Cardio regular rate, regular rhythm, no murmurs and peripheral pulses 2+ throughout GI GI Narrative: Abdomen soft to palpation, nondistended, mildly tender to palpation diffusely. Back/Spine normal ROM Extremity normal to inspection, full ROM and no pedal edema Skin no rashes or lesions noted Psych mental status grossly normal Assessment & Plan Assessment/Plan (1) FE (acute kidney injury): PLAN: Plan Patient is an 83-year-old male with history of HFpEF, CKD stage IIIb, chronic pain, PAF/flutter, hypertension, chronic pancreatic insufficiency, GERD and BPH who presented to [facility] ED on 06/16/2023 with nausea, vomiting and diarrhea. 1. FE on CKD stage IIIb, improving; recent UTI Likely secondary to hypovolemia with hypotension, with recent Bactrim use for UTI contributing. Started on Bactrim for UTI by PCP about 1 week prior to admission. Completed 5 days of Bactrim, then de-escalated to cefdinir as urine culture grew E. coli, however patient never took cefdinir. BUN 84, creatinine 4.33 on admit. Baseline creatinine appears to be 1.4-2.0. UA on admit not consistent with infection. IV fluids given on admission. ? Creatinine improving, most recent creatinine 2.55 on 06/18. Monitor BMP daily and urine output. No need for further antibiotic treatment at this time. 2. Intractable nausea/vomiting and diarrhea, improving Unclear etiology. Gallbladder ultrasound on 06/16 with no acute RUQ abnormality. WBC count of 16 on admit, improved to 10 on 06/17; notably had drop in all cell lines, suspect patient was very hemoconcentrated on admit. Ap peared to have resolution shortly after discharge, however had several episodes of diarrhea on 06/17. Stool PCR panel negative. ? Monitor. Treat symptomatically as needed. 3. Hypotension, history of hypertension Most likely secondary to poor p.o. intake and GI losses prior to admission. Home medications of Lasix, Cardizem, metoprolol, amiodarone and Flomax. BP 90s over 60s on admit. Somewhat improved with IV fluid resuscitation on admission. ? Monitor BP closely. Holding home Lasix, Cardizem and metoprolol for now. Okay to continue home amiodarone and Flomax. Will restart other home medications as able. Okay for p.o. intake, will hold on further IV fluids for now. 4. Debility Lives at home on his own and able to complete all ADLs at baseline. Patient reports feeling acutely debilitated over the last week was not able to do much for himself at home, likely due to his recent infection and poor p.o. intake with GI losses as noted above. ? PT/OT/case management consulted. Likely home with home health care on discharge. 5. Mild hyperkalemia, improved ? Potassium 5.3 on admit, improved with IV fluids. Monitor BMP daily. Chronic medical conditions: ? PAF/flutter: S/p RFA history. Continue home amiodarone and warfarin. Holding home Cardizem and metoprolol due to mild hypotension, restart as able. ? HFpEF: Echo 05/19/2023 showed EF 53%, moderate concentric LVH, mild pulmonary hypertension. Holding home Lasix for now given hypotension as noted above, restart as needed. ? Chronic pancreatic insufficiency: Continue home Creon. ? Hypothyroidism: Continue home Synthroid. ? GERD: Continue home PPI and sucralfate. ? BPH: Continue home Flomax and finasteride. DVT prophylaxis: Warfarin CODE STATUS: Full code, verified Expected disposition: Home with home health care, 1 to 2 days Total clinical time spent by myself addressing the patient's medical issues, reviewing all the data, and collaborating with patient's care team: 35 minutes. Charges/Coding Visit Charges Inpatient E&M: 49955 Subs Hosp L2
[2023-06-18 14:22] VITALS: BP 105/69; PULSE 101; RESP 18; TEMP 36.7; O2SAT 99
[2023-06-18] MEDS: Jantoven 2 MG Tablet PO (17:24)
[2023-06-18 20:31] VITALS: BP 123/93; PULSE 106; RESP 16; TEMP 36.4; O2SAT 98
[2023-06-18] MEDS: Tamsulosin HCl 0.4 MG Capsule PO (22:47)
[2023-06-19 03:21] VITALS: BP 139/100; PULSE 98; RESP 16; TEMP 36.6; O2SAT 96
[2023-06-19] MEDS: Acetaminophen 325 MG Tablet 650 MG PO ×2 (03:30→23:41)
[2023-06-19 03:50] VITALS: BMI 19.1
[2023-06-19] MEDS: Sucralfate 1 GM Tablet PO ×3 (05:52→16:03)
[2023-06-19] MEDS: Levothyroxine 50 MCG Tablet PO (05:52)
[2023-06-19 06:36] LABS: Anion Gap 5 (5-15); BUN 53 mg/dL (7-18); Chloride 113 mmol/L (98-107); Creatinine, Serum 2.21 mg/dL (0.70-1.30); EST Glomerular Filtration Rate 30 mL/min (>60); Est Glom Filt Rate - Afr Amer 37 mL/min (>60); Estimated Creatinine Clearance 20.78 ml/min; Glucose 108 mg/dL (74-106); Potassium 4.7 mmol/L (3.5-5.1); Sodium Level 140 mmol/L (136-145)
[2023-06-19] MEDS: Pantoprazole Sodium 40 MG Tablet PO (08:22)
[2023-06-19] MEDS: Ascorbic Acid 500 MG Tablet PO (08:23)
[2023-06-19] MEDS: Amiodarone 200 MG Tablet 100 MG PO ×2 (08:23→20:59)
[2023-06-19] MEDS: Finasteride 5 MG Tablet PO (08:24)
[2023-06-19 08:38] VITALS: BP 135/92; PULSE 97; RESP 16; TEMP 36.4; O2SAT 95
[2023-06-19 11:17] VITALS: BP 107/83; PULSE 66; RESP 16; TEMP 36.7; O2SAT 95
--- NOTE | 2023-06-19 13:22 | PN.HOSP_ITS ---
Reason for Visit Reason for Visit: Diagnoses Acute kidney failure, unspecified (06/16/23) Subjective Subjective Patient seen at bedside this morning. Sitting comfortably in bedside chair, eating breakfast on arrival to the room. Conversing normally, no acute distress this morning. Patient states he has not had any diarrhea since 2 nights ago. States he feels stronger this morning than yesterday. He would like to stay in the hospital for 1 more day but is hopeful about the possibility of discharge home with home health care tomorrow. No other acute concerns morning. Objective Data Objective Data Vital Signs: Vital Signs Temp Pulse Resp BP Pulse Ox O2 Del Method 98.1 F 66 16 107/83 H 95 Room Air 06/19/23 11:17 06/19/23 11:17 06/19/23 11:17 06/19/23 11:17 06/19/23 11:17 06/19/23 11:17 Oxygen Delivery Method Room Air Weight: 57 kg Body Mass Index (BMI) 19.1 Intake & Output: Intake and Output for Last 24 Hours 06/17/23 06/18/23 06/19/23 23:59 23:59 23:59 Intake Total 1386.66 / 1386.66 400 / 400 500 / 500 Output Total 425 / 425 100 / 100 600 / 600 Balance 961.66 / 961.66 300 / 300 -100 / -100 Medical Nutrition Assessment Dietitian: Malnutrition Criteria Met Start: 06/17/23 10:48 Freq: Status: Active Protocol: Document 06/17/23 10:48 SLA (Rec: 06/17/23 10:48 SLA Desktop) Nutrition Malnutrition Evidence of Malnutrition Exists Yes Malnutrition (severe): Acute Illness/Injury Evidenced By Suboptimal Energy Intake ( Severe),Weight Loss (Severe) Clinical Problem Acute Disease or Injury Related Malnutrition Etiology related to 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 Whitfield w/ 4 oz ensure plus high protein tid w / meals Consider appetite stimulant if po intake fails to improve w/ improvement in GI function. Lab / Micro Data 06/18/23 06:30 06/19/23 05:55 Labs: Laboratory Results - last 24 hr 06/19/23 05:55: Sodium 140, Potassium 4.7, Chloride 113 H, Carbon Dioxide 22.0, Anion Gap 5, BUN 53 H, Creatinine 2.21 H, Estim Creat Clear Calc 20.78, Est GFR (MDRD) Af Amer 37 L, Est GFR (MDRD) Non-Af 30 L, BUN/Creatinine Ratio 24.0 H, Glucose 108 H, Calcium 8.0 L Micro: Microbiology 06/16/23 16:25 Blood Culture (Wb) - Left Forearm Blood Culture - Preliminary No growth in 48 hours. 06/16/23 16:15 Blood Culture (Wb) - Anticubital Left Blood Culture - Preliminary No growth in 48 hours. 06/17/23 12:05 Stool Enteric Bacteriology - Final 06/16/23 18:35 Nasal Secretion SARS-CoV-2 Antigen (Rapid) - Final Physical Exam Const alert Constitutional Narrative: Pleasant elderly male, thin appearing, sitting comfortably in bedside chair, conversing normally, no acute distress. Appears mildly fatigued but improved from yesterday. General Appearance: cooperative and comfortable HEENT normocephalic, head/scalp atraumatic, hearing grossly normal bilaterally, nasal mucous membranes and turbinates normal and moist oral mucous membranes Eyes PERRL, EOMs intact bilaterally and conjunctivae normal Neck full ROM, no lymphadenopathy and supple Lymph Lymphatic: no lymphadenopathy noted Chest inspection of chest normal Resp normal respiratory effort, normal air movement, no use of accessory muscles and clear to auscultation bilaterally Cardio regular rate, regular rhythm, no murmurs and peripheral pulses 2+ throughout GI GI Narrative: Abdomen soft to palpation, nondistended, nontender to palpation. Back/Spine normal ROM Extremity normal to inspection, full ROM and no pedal edema Skin no rashes or lesions noted Psych mental status grossly normal Assessment & Plan Assessment/Plan (1) FE (acute kidney injury): PLAN: Plan Patient is an 83-year-old male with history of HFpEF, CKD stage IIIb, chronic pain, PAF/flutter, hypertension, chronic pancreatic insufficiency, GERD and BPH who presented to [facility] ED on 06/16/2023 with nausea, vomiting and diarrhea. 1. FE on CKD stage IIIb, improving; recent UTI Likely secondary to hypovolemia with hypotension, with recent Bactrim use for UTI contributing. Started on Bactrim for UTI by PCP about 1 week prior to admission. Completed 5 days of Bactrim, then de-escalated to cefdinir as urine culture grew E. coli, however patient never took cefdinir. BUN 84, creatinine 4.33 on admit. Baseline creatinine appears to be 1.4-2.0. UA on admit not consistent with infection. IV fluids given on admission. ? Creatinine improving, most recent creatinine 2.21 on 06/19. Monitor BMP daily and urine output. No need for further antibiotic treatment at this time. 2. Intractable nausea/vomiting and diarrhea, improving Unclear etiology. Gallbladder ultrasound on 06/16 with no acute RUQ abnormality. WBC count of 16 on admit, improved to 10 on 06/17; notably had drop in all cell lines, suspect patient was very hemoconcentrated on admit. Appeared to have resolution shortly after discharge, however had several episodes of diarrhea on 06/17. Stool PCR panel negative. ? Monitor. Treat symptomatically as needed. 3. Hypotension, history of hypertension Most likely secondary to poor p.o. intake and GI losses prior to admission. Home medications of Lasix, Cardizem, metoprolol, amiodarone and Flomax. BP 90s over 60s on admit. Somewhat improved with IV fluid resuscitation on admission. ? Monitor BP closely. Holding home Lasix, Cardizem and metoprolol for now. Okay to continue home amiodarone and Flomax. Will restart other home medications as able. Okay for p.o. intake, will hold on further IV fluids for now. 4. Debility Lives at home on his own and able to complete all ADLs at baseline. Patient reports feeling acutely debilitated over the last week was not able to do much for himself at home, likely due to his recent infection and poor p.o. intake with GI losses as noted above. ? PT/OT/case management consulted. Planning for home with home health care on discharge, if remains stable overnight likely okay for discharge home tomorrow. 5. Mild hyperkalemia, improved ? Potassium 5.3 on admit, improved with IV fluids. Monitor BMP daily. Chronic medical conditions: ? PAF/flutter: S/p RFA history. Continue home amiodarone and warfarin. Holding home Cardizem and metoprolol due to mild hypotension, restart as able. ? HFpEF: Echo 05/19/2023 showed EF 53%, moderate concentric LVH, mild pulmonary hypertension. Holding home Lasix for now given hypotension as noted above, restart as needed. ? Chronic pancreatic insufficiency: Continue home Creon. ? Hypothyroidism: Continue home Synthroid. ? GERD: Continue home PPI and sucralfate. ? BPH: Continue home Flomax and finasteride. DVT prophylaxis: Warfarin CODE STATUS: Full code, verified Expected disposition: Home with home health care, tomorrow Total clinical time spent by myself addressing the patient's medical issues, reviewing all the data, and collaborating with patient's care team: 35 minutes. Charges/Coding Visit Charges Inpatient E&M: 93649 Subs Hosp L2
[2023-06-19 15:13] VITALS: BP 106/78; PULSE 78; RESP 16; TEMP 36.3; O2SAT 99
[2023-06-19] MEDS: Jantoven 2 MG Tablet PO (16:03)
[2023-06-19 20:52] VITALS: BP 106/80; PULSE 87; RESP 16; TEMP 36.6; O2SAT 98
[2023-06-19] MEDS: Tamsulosin HCl 0.4 MG Capsule PO (20:59)
[2023-06-19] MEDS: MENTHOL 226.8 GM JAR 1 APPLIC TOPICAL (20:59)
[2023-06-19] MEDS: MELATONIN 3 MG TABLET PO (23:42)
[2023-06-20 04:28] VITALS: BP 139/86; PULSE 90; RESP 16; TEMP 36.9; O2SAT 98
[2023-06-20 05:48] VITALS: BMI 19.1
[2023-06-20] MEDS: Levothyroxine 50 MCG Tablet PO (06:02)
[2023-06-20] MEDS: Sucralfate 1 GM Tablet PO ×3 (06:02→15:59)
[2023-06-20 06:48] LABS: Anion Gap 4 (5-15); BUN 50 mg/dL (7-18); BUN/Creat Ratio 26.2 RATIO (10-20); Calcium,Total 7.9 mg/dL (8.5-10.1); Chloride 115 mmol/L (98-107); Creatinine, Serum 1.91 mg/dL (0.70-1.30); EST Glomerular Filtration Rate 36 mL/min (>60); Est Glom Filt Rate - Afr Amer 44 mL/min (>60); Estimated Creatinine Clearance 24.04 ml/min; Glucose 96 mg/dL (74-106); Potassium 4.4 mmol/L (3.5-5.1); Sodium Level 140 mmol/L (136-145)
[2023-06-20 09:14] LABS: International Normalized Ratio 1.4; Prothrombin Time (Protime)PT. 16.9 SECONDS (11.7-14.9)
[2023-06-20 10:00] VITALS: BP 138/103; PULSE 100; RESP 18; TEMP 36.6; O2SAT 98
[2023-06-20] MEDS: Pantoprazole Sodium 40 MG Tablet PO (10:31)
[2023-06-20] MEDS: Finasteride 5 MG Tablet PO (10:31)
[2023-06-20] MEDS: Amiodarone 200 MG Tablet 100 MG PO ×2 (10:31→20:20)
[2023-06-20] MEDS: Ascorbic Acid 500 MG Tablet PO (10:32)
--- NOTE | 2023-06-20 11:55 | CASEMGMT ---
RADHA PORTER NOTE: Discharge order is in. RADHA CM to room to discuss discharge planning. Pt resting in bed. Pt states he had just tried to get up and felt dizzy and nauseated. RNNilsa, made aware. Pt states he is also feeling weak and feels he needs to go somewhere for therapy before returning home. He states his 1st choice is [facility] and 2nd choice is [facility]. He states he does not want a list of other SNF options. Macy AGUDELO, made aware. Ana SALCEDON RADHA PORTER
[2023-06-20 12:44] VITALS: BP 111/78; BP 122/75; BP 129/89; PULSE 104; PULSE 88; PULSE 97
--- NOTE | 2023-06-20 12:51 | CASEMGMT ---
Social Work Per physician, pt is feeling weak and is fearful of returning home alone. RNCM saw pt who is requesting SNF placement, denying need for list of options and requesting 1. [facility] and 2. [facility]. Referral to [facility] in [facility]. SW will await determination of acceptance. Plan: TCU, pending acceptance [facility] Guerrero
[2023-06-20] MEDS: 0.9% Normal Saline (1000mL) 1,000 ML 100 ML IV (14:22)
[2023-06-20 14:24] VITALS: BP 120/80; PULSE 110; RESP 18; TEMP 37.1; O2SAT 98
--- NOTE | 2023-06-20 15:14 | PN.HOSP_ITS ---
Reason for Visit Reason for Visit: Diagnoses Acute kidney failure, unspecified (06/16/23) Subjective Subjective Patient seen in the a.m. he had been feeling better overall with no acute complaints aside from feeling generally weak being afraid to go home independently. Denied any further nausea or vomiting and no diarrhea, no abdominal pain but did have some right-sided sharp rib pain at times and reported that he did have a lot of retching prior to his hospitalization. After this discussion did have some dizziness when he got around to move up and felt somewhat nauseated. Objective Data Objective Data Vital Signs: Vital Signs Temp Pulse Resp BP Pulse Ox O2 Del Method 98.7 F 110 H 18 120/80 98 Room Air 06/20/23 14:24 06/20/23 14:24 06/20/23 14:24 06/20/23 14:24 06/20/23 14:24 06/20/23 14:24 Oxygen Delivery Method Room Air Weight: 57 kg Body Mass Index (BMI) 19.1 Intake & Output: Intake and Output for Last 24 Hours 06/18/23 06/19/23 06/20/23 23:59 23:59 23:59 Intake Total 400 / 400 1450 / 1450 550 / 550 Output Total 100 / 100 600 / 600 170 / 170 Balance 300 / 300 850 / 850 380 / 380 Medical Nutrition Assessment Dietitian: Malnutrition Criteria Met Start: 06/17/23 10:48 Freq: Status: Active Protocol: Document 06/17/23 10:48 SLA (Rec: 06/17/23 10:48 SLA Desktop) Nutrition Malnutrition Evidence of Malnutrition Exists Yes Malnutrition (severe): Acute Illness/Injury Evidenced By Suboptimal Energy Intake ( Severe),Weight Loss (Severe) Clinical Problem Acute Disease or Injury Related Malnutrition Etiology related to GI dysfunction x 1 wk lighter captain and inadequate energy intake Signs/Symptoms as evidenced by 9.3% wt loss in and meeting <75% of est nutritional needs x 1 wk lighter captain Status Active Problem Recommendation Dietitian Recommendations/Changes Will advance WILIAN to Regular per Dr. Whitfield w/ 4 oz ensure plus high protein tid w / meals Consider appetite stimulant if po intake fails to improve w/ improvement in GI function. Lab / Micro Data 06/18/23 06:30 06/20/23 05:46 Labs: Laboratory Results - last 24 hr 06/20/23 05:46: Sodium 140, Potassium 4.4, Chloride 115 H, Carbon Dioxide 21.0, Anion Gap 4 L, BUN 50 H, Creatinine 1.91 H, Estim Creat Clear Calc 24.04, Est GFR (MDRD) Af Amer 44 L, Est GFR (MDRD) Non-Af 36 L, BUN/Creatinine Ratio 26.2 H , Glucose 96, Calcium 7.9 L 06/20/23 08:55: PT 16.9 H, INR 1.4 Micro: Microbiology 06/16/23 16:25 Blood Culture (Wb) - Left Forearm Blood Culture - Preliminary No growth in 48 hours. 06/16/23 16:15 Blood Culture (Wb) - Anticubital Left Blood Culture - Preliminary No growth in 48 hours. 06/17/23 12:05 Stool Enteric Bacteriology - Final 06/16/23 18:35 Nasal Secretion SARS-CoV-2 Antigen (Rapid) - Final Physical Exam Narrative General: Alert, oriented, no apparent distress HEENT: Atraumatic, normocephalic Eyes: Anicteric, normal conjunctiva, extraocular movements grossly intact Neck: Supple Respiratory: Clear to auscultation bilaterally, normal respiratory effort Cardiovascular: Regular rate and rhythm GI: Soft, nontender, nondistended, did have some rib tenderness when pushing on right lower rib cage Extremities: No edema Musculoskeletal: Moving all extremities Neuro: No overt focal neurological deficits Skin: No rashes appreciated Psych: Cooperative Assessment & Plan Assessment/Plan (1) FE (acute kidney injury): PLAN: Plan Patient is an 83-year-old male with history of HFpEF, CKD stage IIIb, chronic pain, PAF/flutter, hypertension, chronic pancreatic insufficiency, GERD and BPH who presented to [facility] ED on 06/16/2023 with nausea, vomiting and diarrhea. #FE on CKD stage IIIb, improving; recent UTI Likely secondary to hypovolemia with hypotension, with recent Bactrim use for UTI contributing. Started on Bactrim for UTI by PCP about 1 week prior to admission. Completed 5 days of Bactrim, then de-escalated to cefdinir as urine culture grew E. coli, however patient never took cefdinir. BUN 84, creatinine 4.33 on admit. Baseline creatinine appears to be 1.4-2.0. UA on admit not consistent with infection. IV fluids given on admission. ? Creatinine improving, most recent creatinine 2.21 on 06/19. Monitor BMP daily and urine output. No need for further antibiotic treatment at this time. -06/20: Kidney function has continued to improve, patient was feeling little bit dizzy earlier and was given more fluid, orthostatic vital signs not overly impressive, symptoms began after we discussed patient going home, unclear if anxiety component however will monitor after gentle hydration and patient for placement now #Intractable nausea/vomiting and diarrhea, improving Unclear etiology. Gallbladder ultrasound on 06/16 with no acute RUQ abnormality. WBC count of 16 on admit, improved to 10 on 06/17; notably had drop in all cell lines, suspect patient was very hemoconcentrated on admit. Appeared to have resolution shortly after discharge, however had several episodes of diarrhea on 06/17. Stool PCR panel negative. ? Monitor. Treat symptomatically as needed. -06/20: This is all been improving and on evaluation patient denied any symptoms, he had a right upper quadrant ultrasound which was unremarkable this hospitalization, will get liver panel with tomorrow's labs. Suspect right-sided pain is musculoskeletal #Hypotension, history of hypertension Most likely secondary to poor p.o. intake and GI losses prior to admission. Home medications of Lasix, Cardizem, metoprolol, amiodarone and Flomax. BP 90s over 60s on admit. Somewhat improved with IV fluid resuscitation on admission. ? Monitor BP closely. Holding home Lasix, Cardizem and metoprolol for now. Okay to continue home amiodarone and Flomax. Will restart other home medications as able. Okay for p.o. intake, will hold on further IV fluids for now. -06/20: BP improving, orthostats not particularly impressive, continue supportive care #Debility Lives at home on his own and able to complete all ADLs at baseline. Patient reports feeling acutely debilitated over the last week was not able to do much for himself at home, likely due to his recent infection and poor p.o. intake with GI losses as noted above. ? PT/OT/case management consulted. Planning for home with home health care on discharge, if remains stable overnight likely okay for discharge home tomorrow. #Mild hyperkalemia, improved ? Potassium 5.3 on admit, improved with IV fluids. Monitor BMP daily. -06/20: Resolved #pAF/flutter -S/p RFA history. -Continue home amiodarone and warfarin. Holding home Cardizem and metoprolol due to mild hypotension, restart as able. -06/20: INR remains subtherapeutic, increasing Coumadin, continue amiodarone #Chronic HFpEF -Echo 05/19/2023 showed EF 53%, moderate concentric LVH, mild pulmonary hypertension. Holding home Lasix for now given hypotension as noted above, restart as needed. -06/20: Patient does not appear to be fluid overloaded, continue daily weights, monitor I's and O's ? Chronic pancreatic insufficiency: Continue home Creon. ? Hypothyroidism: Continue home Synthroid. ? GERD: Continue home PPI and sucralfate. ? BPH: Continue home Flomax and finasteride. DVT prophylaxis: Warfarin, will add SCDs given INR subtherapeutic CODE STATUS: Full code, verified Total clinical time spent by myself addressing the patient's medical issues, reviewing all the data, and collaborating with patient's care team: 35 minutes. Charges/Coding Visit Charges Inpatient E&M: 02367 Subs Hosp L2
[2023-06-20] MEDS: Acetaminophen 325 MG Tablet 650 MG PO ×2 (15:58→20:19)
[2023-06-20] MEDS: Lidocaine 5% Patch 1 PATCH TOPICAL (15:59)
[2023-06-20] MEDS: MELATONIN 3 MG TABLET PO (20:18)
[2023-06-20] MEDS: Tamsulosin HCl 0.4 MG Capsule PO (20:19)
[2023-06-20] MEDS: Ondansetron 4 MG/2 ML Vial IV (20:19)
[2023-06-20 20:30] VITALS: BP 121/81; PULSE 53; RESP 18; TEMP 36.6; O2SAT 98
[2023-06-21 03:15] VITALS: BP 135/87; PULSE 88; RESP 16; TEMP 36.7; O2SAT 98
[2023-06-21 06:00] VITALS: BMI 19.2
[2023-06-21] MEDS: Sucralfate 1 GM Tablet PO ×2 (06:02→11:40)
[2023-06-21] MEDS: Levothyroxine 50 MCG Tablet PO (06:03)
[2023-06-21] MEDS: Acetaminophen 325 MG Tablet 650 MG PO (06:03)
[2023-06-21 06:22] LABS: Absolute Lymphocyte Count 0.65 X10^3/uL (0.83-4.51); Absolute Neutrophil Count 9.1 X10^3/uL (2.0-7.7); Basophil# 0.04 X10^3/uL; Basophil% 0.4 % (0-1); Eosinophil# 0.12 X10^3/uL; Eosinophils% 1.1 % (0-5); Hematocrit 34.1 % (40-54); Hemoglobin 11.2 g/dL (13.0-16.5); Lymphocyte # 0.65 X10^3/ul (0.83-4.51); Lymphocyte % 6.2 % (19-41); Mean Corp Hgb Conc 32.8 g/dL (32-36); Mean Corpuscular Hgb 33.4 pg (27.0-32.0); Mean Corpuscular Volume 101.8 fL (80-94); Mean Platelet Vol. 9.9 fl (6.2-12.0); Monocyte# 0.49 X10^3/uL; Monocyte% 4.7 % (0-10); NRBC Flagged by Analyzer 0 % (0-5); Neutrophil # 9.08 X10^3/uL (2.7-7.7); Neutrophil % 86.2 % (47-70); POSITIVE MORPHOLOGY YES; Platelet Count 201 K/mm3 (150-450); RBC Distribution Width CV 18.6 % (11.6-14.6); Red Blood Count 3.35 M/mm3 (4.6-6.2); White Blood Count 10.5 K/mm3 (4.4-11.0)
[2023-06-21 06:31] LABS: Differential Indicated SCAN CRITERIA MET
[2023-06-21 06:44] LABS: International Normalized Ratio 1.6; Prothrombin Time (Protime)PT. 18.7 SECONDS (11.7-14.9)
[2023-06-21 06:50] LABS: ALB/GLOB Ratio 0.7 RATIO (0.9-2.4); AST(SGOT) 51 U/L (15-37); Alanine Aminotransfer ALT/SGPT 182 U/L (16-61); Albumin, Serum 2.2 g/dL (3.2-5.0); Alkaline Phosphatase 77 U/L (45-117); Anion Gap 5 (5-15); BUN 44 mg/dL (7-18); BUN/Creat Ratio 23.2 RATIO (10-20); Chloride 115 mmol/L (98-107); EST Glomerular Filtration Rate 36 mL/min (>60); Est Glom Filt Rate - Afr Amer 44 mL/min (>60); Estimated Creatinine Clearance 24.29 ml/min; Globulin 3.3 g/dL (2.2-4.2); Glucose 106 mg/dL (74-106); Magnesium 1.9 mg/dL (1.6-2.6); Potassium 3.8 mmol/L (3.5-5.1); Protein, Total 5.5 g/dL (6.4-8.2); Sodium Level 141 mmol/L (136-145)
[2023-06-21 06:55] LABS: Anisocytosis 1+; Differential Comment SCANNED; Macrocytosis 1+
[2023-06-21 08:27] VITALS: BP 137/91; PULSE 64; RESP 18; TEMP 36.9; O2SAT 98
[2023-06-21] MEDS: Ascorbic Acid 500 MG Tablet PO (08:31)
[2023-06-21] MEDS: Amiodarone 200 MG Tablet 100 MG PO (08:31)
[2023-06-21] MEDS: Lidocaine 5% Patch 1 PATCH TOPICAL (08:31)
[2023-06-21] MEDS: Finasteride 5 MG Tablet PO (08:31)
[2023-06-21] MEDS: Pantoprazole Sodium 40 MG Tablet PO (08:31)
[2023-06-21] MEDS: MENTHOL 226.8 GM JAR 1 APPLIC TOPICAL (08:32)
[2023-06-21] MEDS: Polyethylene Glycol 3350 17 GM PACKET PO (09:45)
--- NOTE | 2023-06-21 10:19 | CASEMGMT ---
Social Work SW followed up with TCU on acceptance as . states pt is ready for DC today. TCU agreeable to accept without another day of therapy. DR updated and DC orders entered. Pt aware. PLAN: DC 06/21 to TCU skilled Roya Sarabia, NAUN MEDRANOW
--- NOTE | 2023-06-21 10:54 | PCM.TXEXTCAR ---
Diet Diet Order/Speech Therapy: 06/17/23 10:42 Diet: Regular - General Type of Dietary Supplement:: Ensure Plus High Protein Is pt able to select menu?: Yes Diet Comments: 4 oz strawberry or vanilla EPHP w/ meals tid Routine Orders/Code Status Suppository Type: Dulcolax 10mg Suppository Frequency: Daily PRN Routine Lab Work: BMP (2-3 days) and INR (1-2 days) Code Status: Full Code Wound(s) L foot, 3rd digit: Wound Type: blackened area. Per patient It's where my shoe hits it. right wrist: Wound Type: Skin Tear Therapies Physical Therapy: Eval and Treat Occupational Therapy: Eval and Treat Problem/Diagnosis (1) FE (acute kidney injury): Status: Acute Code(s): N17.9 - Acute kidney failure, unspecified Plan #FE on CKD stage IIIb, improving; recent UTI #Intractable nausea/vomiting and diarrhea- likely viral gastroenteritis, resolved #Hypotension, history of hypertension- resolved #Debility #Mild hyperkalemia, improved #pAF/flutter #Chronic HFpEF The patient is a 82 y/o M w/ PMHx: HFpEF, COPD, HTN, HLD, Hypothyroidism, Tobacco use, PAF/Flutter s/p RFA, GERD, ALVARADO on CPAP, TAA, GERD s/p anthony, CAD s/p PCI, Chronic pain syndrome, Chronic constipation, Chronic pancreatic insufficiency who presented to [facility] 06/16/2023 with nausea, emesis, diarrhea and was found to have FE on CKD stage IIIb. Presumed that he had viral gastroenteritis close stool PCR negative but all symptoms improved. Patient was hypotensive as well and had multiple home medication changes including holding Imdur, metoprolol, Cardizem, Lasix and BP improved significantly though still intermittently low normal. Patient eating well and overall doing much better. On day of planned discharge patient reported he has been feeling very weak and does not feel safe to go home, worked with physical therapy and discussed with social work/case management and patient to be placed upon discharge. Discharge instructions as follows: DISCHARGE INSTRUCTIONS PLEASE READ *Please take this with you to your next doctors appointment* -It is recommended that you hold your diltiazem, spironolactone, and furosemide. Would recommend monitoring your blood pressure and heart rate every morning and keeping a log of this. If your blood pressure begins to be consistently elevated prior to your next physician's appointment please call your prescribing physician for further instructions regarding possibly resuming this medication -It is recommended that you follow-up with your truck mechanic apprentice upon discharge due to multiple heart medication changes -Would recommend lab work (BMP) to check your kidney function in 2 to 3 days through your primary care physician's office. Please call their office upon discharge to obtain order for lab work. -Continue your Coumadin, will be important that you have your INR continue to be monitored, he will take 4 mg Tuesday, Tuesday, Tuesday and your subsequent days were increased to 3 mg -Weigh yourself every day. A sudden weight gain can mean you are retaining fluid. Weigh yourself at the same time of day and in the same kind of clothes. Ideally, weigh yourself first thing in the morning after you empty your bladder, but before you eat breakfast. -Please call your physician if your weight goes up by more than 2 pounds in 1 day or 5 pounds in 1 week. This can be a sign that you are retaining more fluid than you should be and may need to resume your Lasix. Clues to weight gain include checking your ankles for swelling, or noticing you are short of breath when you lie down -Please limit your sodium intake to less than 3 g/day. Here are tips: Limit canned, dried, packaged, and fast foods. Don't add salt to your food at the table. Season foods with herbs instead of salt when you cook. When you eat out, ask that the broiler chef or cook not add any salt to your dish. Don't eat fried or greasy foods. Be careful of bottled beverages. They can contain a lot of salt -Call 911 right away if you have: -Severe shortness of breath, such that you can't catch your breath even while resting -Severe chest pain that does not resolve with rest or nitroglycerin -[place], foamy mucus with cough and shortness of breath -An ongoing rapid or irregular heartbeat -Passing out or fainting -Stroke symptoms such as sudden numbness or weakness on one side of your face, arm, or leg or sudden confusion, trouble speaking or vision changes -Please call your primary care provider's office upon discharge to schedule a hospital follow up within 1 week. -For any concerning signs or symptoms please call 911 or proceed to the nearest emergency department Allergies/Procedures Done in Hospital Allergies diclofenac Allergy (Verified 06/16/23 10:29) rash prednisone Allergy (Verified 06/16/23 10:29) Rash Type of Care/Length of Stay Estimated LOS: Convalescent Care Less Than 30 days Type of Care Needed: Skilled Rehab Potential: Fair Prognosis: Fair Additional Orders/Day of Discharge Day of Discharge: 06/21/23 Dietary and Speech Recommendations Dietitian Recommendations/Changes: Rec continue Regular diet w/ 4 oz ensure plus high protein tid w/ meals Consider appetite stimulant if po intake fails to improve w/ improvement in GI function. Discharge Plan Admission Admit Date/Time: 06/16/23 15:48 Primary Reason for Your Visit: Diarrhea and dehydration Attending Provider: Emy Willard Primary Care Provider: César Chinchilla Consulting Providers: Janel Blount; Leland Whitfield Instructions Patient Instructions: Viral Gastroenteritis, ED Diarrhea, Unknown Cause Additional Instructions / Restrictions: DISCHARGE INSTRUCTIONS PLEASE READ *Please take this with you to your next doctors appointment* -It is recommended that you hold your diltiazem, spironolactone, and furosemide. Would recommend monitoring your blood pressure and heart rate every morning and keeping a log of this. If your blood pressure begins to be consistently elevated with the top number (systolic blood pressure) over 140 prior to your next physician's appointment please call your prescribing physician for further instructions regarding possibly resuming this medication -It is recommended that you follow-up with your truck mechanic apprentice upon discharge due to multiple heart medication changes -Would recommend lab work (BMP) to check your kidney function in 2 to 3 days through your primary care physician's office. Please call their office upon discharge to obtain order for lab work. -Continue your Coumadin, will be important that you have your INR continue to be monitored, he will take 4 mg Tuesday, Tuesday, Tuesday and your subsequent days were increased to 3 mg -Weigh yourself every day. A sudden weight gain can mean you are retaining fluid. Weigh yourself at the same time of day and in the same kind of clothes. Ideally, weigh yourself first thing in the morning after you empty your bladder, but before you eat breakfast. -Please call your physician if your weight goes up by more than 2 pounds in 1 day or 5 pounds in 1 week. This can be a sign that you are retaining more fluid than you should be and may need to resume your Lasix. Clues to weight gain include checking your ankles for swelling, or noticing you are short of breath when you lie down -Please limit your sodium intake to less than 3 g/day. Here are tips: Limit canned, dried, packaged, and fast foods. Don't add salt to your food at the table. Season foods with herbs instead of salt when you cook. When you eat out, ask that the broiler chef or cook not add any salt to your dish. Don't eat fried or greasy foods. Be careful of bottled beverages. They can contain a lot of salt -Call 911 right away if you have: -Severe shortness of breath, such that you can't catch your breath even while resting -Severe chest pain that does not resolve with rest or nitroglycerin -[place], foamy mucus with cough and shortness of breath -An ongoing rapid or irregular heartbeat -Passing out or fainting -Stroke symptoms such as sudden numbness or weakness on one side of your face, arm, or leg or sudden confusion, trouble speaking or vision changes -Please call your primary care provider's office upon discharge to schedule a hospital follow up within 1 week. -For any concerning signs or symptoms please call 911 or proceed to the nearest emergency department Discharge Orders/Prescriptions Prescriptions: New warfarin [Jantoven] 3 mg Tablet 3 mg PO SuTuThSa@1700 Qty: 0 0RF Continued tamsulosin 0.4 mg capsule 0.4 mg PO QHS levothyroxine 25 mcg tablet 50 mcg PO DAILY Patient Comments: take 1 tablet by mouth once daily acetaminophen 500 mg capsule 1,000 mg PO Q6H PRN (Reason: Pain) Linzess 72 mcg capsule 72 mcg PO DAILY PRN (Reason: Diarrhea) Hold Instructions: Resume on 02/22/23. Restart on Discharge from [facility] ascorbic acid (vitamin C) 500 mg tablet 500 mg PO DAILY finasteride 5 mg tablet 5 mg PO DAILY lidocaine 5 % adhesive patch,medicated 1 patch topical DAILY Rx Instructions: leave on most painful area for up to 12 hrs Prolia 60 MG/ML syringe 60 mg SQ .[id number] vitamin B complex Capsule 1 cap PO BID coenzyme Q10 [Co Q-10] 100 mg Capsule 100 mg PO DAILY multivitamin Tablet 1 tab PO DAILY vitamin A 7,500 mcg (25,000 unit) Capsule 25,000 unit PO DAILY polyethylene glycol 3350 17 gram Powder In Packet 17 g PO DAILY cholecalciferol (vitamin D3) [Vitamin D3] 25 mcg (1,000 unit) Capsule 1,000 unit PO DAILY amiodarone 100 mg tablet 100 mg PO BID Creon 36,000-114,000- 180,000 unit capsule,delayed release(DR/EC) See Rx Instructions PO .COMPLEX Rx Instructions: take 1-2 with snacks and 2-3 with meals sucralfate 1 gram Tablet 1 g PO TID@0700,1100,1600 30 Days Qty: 90 0RF pantoprazole 40 mg Tablet,Delayed Release (Dr/Ec) 40 mg PO DAILY 30 Days Qty: 30 0RF ondansetron 4 mg Tablet,Disintegrating 4 mg PO Q8H PRN PRN (Reason: Nausea And Vomiting) 30 Days Qty: 90 0RF magnesium citrate Solution 300 ml PO DAILY PRN (Reason: constipation) Qty: 296 0RF Rx Instructions: Drink half the bottle. If no significant stool results within 3 hours, drink the remainder of the bottle. loratadine [Claritin] 10 mg tablet 10 mg PO DAILY famotidine 40 mg tablet 40 mg PO DAILY Qty: 30 11RF lactulose 10 gram/15 mL solution 10 g PO DAILY 30 Days Qty: 450 0RF Rx Instructions: take once a day and can take up to 2 more times in a day as needed for constipation warfarin 2 mg tablet See Rx Instructions PO .COMPLEX Qty: 90 3RF Protocol: Dose Management Condition: Tuesday Dose/Route: 4 mg Instruction: 1 x 4 mg tablet Condition: Tuesday Dose/Route: 4 mg Instruction: 1 x 4 mg tablet Condition: Tuesday Dose/Route: 4 mg Instruction: 1 x 4 mg tablet Condition: Tuesday Dose/Route: 4 mg Instruction: 1 x 4 mg tablet Condition: Dose/Route: 2 mg Instruction: 1 x 2 mg tablet Condition: Tuesday Dose/Route: 2 mg Instruction: 1 x 2 mg tablet Condition: Tuesday Dose/Route: 2 mg Instruction: 1 x 2 mg tablet Protocol Text: Adjustment Start Date: Tuesday06/17/23 INR Value: 1.7 INR Date: 06/17/23 Recheck Date: 06/24/23 Patient Comments: Adjustment 01/03. Pt to take 2mg Wednesday 01/03, 2mg Thursday 01/04. Retest 01/05. Rx Instructions: 4mg Tue, Tue, Tue. 2mg Tue, , , Sat orally; Changed warfarin 4 mg tablet See Rx Instructions .Route .COMPLEX Qty: 60 0RF Protocol: Dose Management Condition: Tuesday Dose/Route: 4 mg Instruction: 1 x 4 mg tablet Condition: Tuesday Dose/Route: 4 mg Instruction: 1 x 4 mg tablet Condition: Tuesday Dose/Route: 4 mg Instruction: 1 x 4 mg tablet Condition: Tuesday Dose/Route: 4 mg Instruction: 1 x 4 mg tablet Condition: Dose/Route: 2 mg Instruction: 1 x 2 mg tablet Condition: Tuesday Dose/Route: 2 mg Instruction: 1 x 2 mg tablet Condition: Tuesday Dose/Route: 2 mg Instruction: 1 x 2 mg tablet Protocol Text: Adjustment Start Date: Tuesday06/17/23 INR Value: 1.7 INR Date: 06/17/23 Recheck Date: 06/24/23 Rx Instructions: 4mg Tue, Tue, Tue. 3mg Tue, , , Sat orally; Held isosorbide mononitrate 30 mg tablet extended release 24 hr 30 mg PO BID Hold Instructions: Resume on 06/29/23. furosemide 40 mg tablet 40 mg PO BID PRN (Reason: Weight Gain) Hold Instructions: Resume on 06/29/23. Rx Instructions: as needed for weight gain of 3# in one day diltiazem HCl 120 mg capsule,extended release 24hr 120 mg PO BID Qty: 60 11RF Hold Instructions: Resume on 06/29/23. metoprolol tartrate 25 mg tablet 25 mg PO BID Qty: 180 3RF Hold Instructions: Resume on 06/24/23. Discontinued baclofen 5 mg Tablet 5 mg PO TID PRN (Reason: muscle spasms) hydromorphone 2 mg Tablet 1 - 2 mg PO Q6H PRN (Reason: Pain Score 4-10) 3 Days Qty: 12 0RF cefdinir 300 mg capsule 300 mg PO Q12H Referrals / Follow Up: César Chinchilla MD [Primary Care Provider] - Within 1 Week Disposition Disposition (needs filled in before D/C Order can be placed): [facility]
--- NOTE | 2023-06-21 11:15 | PCM.DC.SUM ---
Providers Date of Admission: 06/16/23 Date of Discharge: 06/21/23 Primary Care Physician: Dr. 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, improving; recent UTI #Intractable nausea/vomiting and diarrhea- likely viral gastroenteritis, resolved #Hypotension, history of hypertension- resolved #Debility #Mild hyperkalemia, improved #pAF/flutter #Chronic HFpEF Medications at Discharge Home Medications denosumab 60 mg/mL subcutaneous syringe (Prolia) 60 mg SQ .[id number] BONES 12/09/20 tamsulosin 0.4 mg capsule 0.4 mg PO QHS bladder 11/18/21 levothyroxine 25 mcg tablet 50 mcg PO DAILY thyroid 02/17/22 coenzyme Q10 100 mg capsule (Co Q-10) 100 mg PO DAILY supplement 05/01/22 vitamin B complex 1 cap PO BID supplement 05/01/22 acetaminophen 500 mg capsule 1,000 mg PO Q6H PRN Pain 06/15/22 linaclotide 72 mcg capsule (Linzess) 72 mcg PO DAILY PRN Diarrhea 06/15/22 ascorbic acid (vitamin C) 500 mg tablet 500 mg PO DAILY supplement 07/20/22 finasteride 5 mg tablet 5 mg PO DAILY prostate 08/05/22 multivitamin 1 tab PO DAILY supplement 08/16/22 furosemide 40 mg tablet 40 mg PO BID PRN Weight Gain 11/25/22 diltiazem HCl 120 mg capsule,extended release 24 hr 120 mg PO BID heart #60 caps 11/30/22 cholecalciferol (vitamin D3) 25 mcg (1,000 unit) capsule (Vitamin D3) 1,000 unit PO DAILY supplement 02/19/23 isosorbide mononitrate 30 mg tablet,extended release 24 hr 30 mg PO BID heart 02/19/23 polyethylene glycol 3350 17 gram oral powder packet 17 g PO DAILY constipation 02/19/23 vitamin A 7,500 mcg (25,000 unit) capsule 25,000 unit PO DAILY supplement 02/19/23 amiodarone 100 mg tablet 100 mg PO BID heart 02/21/23 [id number] 36,000-114,000-180,000 unit capsule,delay rel (Creon) See Rx Instructions PO .COMPLEX digestion 02/21/23 ondansetron 4 mg disintegrating tablet 4 mg PO Q8H PRN PRN Nausea And Vomiting 30 days #90 tabs 03/21/23 pantoprazole 40 mg tablet,delayed release 40 mg PO DAILY 30 days #30 tabs 03/21/23 sucralfate 1 gram tablet 1 g PO TID@0700,1100,1600 30 days #90 tabs 03/21/23 famotidine 40 mg tablet 40 mg PO DAILY stomach #30 tabs 04/11/23 lidocaine 5 % topical patch 1 patch topical DAILY 05/05/23 magnesium citrate 300 ml PO DAILY PRN constipation #296 mL 05/07/23 lactulose 10 gram/15 mL oral solution 10 g (15 mL) PO DAILY 30 days #450 mL 05/18/23 warfarin 2 mg tablet See Rx Instructions PO .COMPLEX blood thinner #90 tabs 05/27/23 loratadine 10 mg tablet (Claritin) 10 mg PO DAILY 06/16/23 metoprolol tartrate 25 mg tablet 25 mg PO BID heart #180 tabs 06/20/23 warfarin 3 mg tablet (Jantoven) 3 mg PO SuTuThSa@1700 #0 tabs 06/21/23 warfarin 4 mg tablet See Rx Instructions .Route .COMPLEX blood thinner #60 tabs 06/21/23 Hospital Course Summary of Care Provided Minutes Spent on Discharge: 40 Hospital Course: The patient is a 82 y/o M w/ PMHx: HFpEF, COPD, HTN, HLD, Hypothyroidism, Tobacco use, PAF/Flutter s/p RFA, GERD, ALVARADO on CPAP, TAA, GERD s/p anthony, CAD s/p PCI, Chronic pain syndrome, Chronic constipation, Chronic pancreatic insufficiency who presented to [facility] 06/16/2023 with nausea, emesis, diarrhea and was found to have FE on CKD stage IIIb. Presumed that he had viral gastroenteritis close stool PCR negative but all symptoms improved. Patient was hypotensive as well and had multiple home medication changes including holding Imdur, metoprolol, Cardizem, Lasix and BP improved significantly though still intermittently low normal. Patient eating well and overall doing much better. On day of planned discharge patient reported he has been feeling very weak and does not feel safe to go home, worked with physical therapy and discussed with social work/case management and patient to be placed upon discharge. On day of discharge patient feeling better, had felt a little dizzy on standing in the a.m., this may be the tamsulosin, if this continues can consider holding that. BP has been good and did not have significant drop in blood pressure and orthostats yesterday. Patient to go to TCU for therapy. Rib pain also somewhat better with lidocaine patch. discharge instructions as follows: DISCHARGE INSTRUCTIONS PLEASE READ *Please take this with you to your next doctors appointment* -It is recommended that you hold your diltiazem, spironolactone, and furosemide. Would recommend monitoring your blood pressure and heart rate every morning and keeping a log of this. If your blood pressure begins to be consistently elevated prior to your next physician's appointment please call your prescribing physician for further instructions regarding possibly resuming this medication -It is recommended that you follow-up with your food service upon discharge due to multiple heart medication changes -Would recommend lab work (BMP) to check your kidney function in 2 to 3 days through your primary care physician's office. Please call their office upon discharge to obtain order for lab work. -Continue your Coumadin, will be important that you have your INR continue to be monitored, he will take 4 mg Tuesday, Tuesday, Tuesday and your subsequent days were increased to 3 mg -Weigh yourself every day. A sudden weight gain can mean you are retaining fluid. Weigh yourself at the same time of day and in the same kind of clothes. Ideally, weigh yourself first thing in the morning after you empty your bladder, but before you eat breakfast. -Please call your physician if your weight goes up by more than 2 pounds in 1 day or 5 pounds in 1 week. This can be a sign that you are retaining more fluid than you should be and may need to resume your Lasix. Clues to weight gain include checking your ankles for swelling, or noticing you are short of breath when you lie down -Please limit your sodium intake to less than 3 g/day. Here are tips: Limit canned, dried, packaged, and fast foods. Don't add salt to your food at the table. Season foods with herbs instead of salt when you cook. When you eat out, ask that the insurance compliance analyst not add any salt to your dish. Don't eat fried or greasy foods. Be careful of bottled beverages. They can contain a lot of salt -Call 911 right away if you have: -Severe shortness of breath, such that you can't catch your breath even while resting -Severe chest pain that does not resolve with rest or nitroglycerin -[place], foamy mucus with cough and shortness of breath -An ongoing rapid or irregular heartbeat -Passing out or fainting -Stroke symptoms such as sudden numbness or weakness on one side of your face, arm, or leg or sudden confusion, trouble speaking or vision changes -Please call your primary care provider's office upon discharge to schedule a hospital follow up within 1 week. -For any concerning signs or symptoms please call 911 or proceed to the nearest emergency department Physical Exam Narrative General: Alert, oriented, no apparent distress HEENT: Atraumatic, normocephalic Eyes: Anicteric, normal conjunctiva, extraocular movements grossly intact Neck: Supple Respiratory: Clear to auscultation bilaterally, normal respiratory effort Cardiovascular: Regular rate and rhythm GI: Soft, nontender, nondistended, did have some rib tenderness when pushing on right lower rib cage Extremities: No edema Musculoskeletal: Moving all extremities Neuro: No overt focal neurological deficits Skin: No rashes appreciated Psych: Cooperative Medical Records Data Medical Nutrition Assessment Dietitian: Malnutrition Criteria Met Start: 06/17/23 10:48 Freq: Status: Active Protocol: Document 06/17/23 10:48 SLA (Rec: 06/17/23 10:48 SLA Desktop) Nutrition Malnutrition Evidence of Malnutrition Exists Yes Malnutrition (severe): Acute Illness/Injury Evidenced By Suboptimal Energy Intake ( Severe),Weight Loss (Severe) Clinical Problem Acute Disease or Injury Related Malnutrition Etiology 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 Whitfield w/ 4 oz ensure plus high protein tid w / meals Consider appetite stimulant if po intake fails to improve w/ improvement in GI function. Weight / BMI Weight Weight: 57.3 kg Body Mass Index (BMI) 19.2 ABG / Lab / Microbiology Data 06/21/23 05:55 06/21/23 05:55 Laboratory: Laboratory Results - last 24 hr 06/21/23 05:55: WBC 10.5, RBC 3.35 L, Hgb 11.2 L, Hct 34.1 L, MCV 101.8 H, MCH 33.4 H, MCHC 32.8, RDW Std Deviation 69.0 H, RDW Coeff of Pablo 18.6 H, Plt Count 201, MPV 9.9, Immature Gran % (Auto) 1.400 H, Neut % (Auto) 86.2 H, Lymph % (Auto) 6.2 L, [place] % (Auto) 4.7, Eos % (Auto) 1.1, Baso % (Auto) 0.4, Absolute Neuts (auto) 9.1 H, Absolute Lymphs (auto) 0.65 L, Nucleated RBC % 0, Differential Comment SCANNED, Anisocytosis 1+, Macrocytosis 1+, PT 18.7 H, INR 1.6, Sodium 141, Potassium 3.8, Chloride 115 H, Carbon Dioxide 21.0, Anion Gap 5, BUN 44 H, Creatinine 1.90 H, Estim Creat Clear Calc 24.29, Est GFR (MDRD) Af Amer 44 L, Est GFR (MDRD) Non-Af 36 L, BUN/Creatinine Ratio 23.2 H, Glucose 106, Calcium 8.0 L, Magnesium 1.9, Total Bilirubin 0.50, AST 51 H, ALT 182 H, Alkaline Phosphatase 77, Total Protein 5.5 L, Albumin 2.2 L, Globulin 3.3, Albumin/Globulin Ratio 0.7 L Microbiology: Microbiology 06/16/23 16:25 Blood Culture (Wb) - Left Forearm Blood Culture - Preliminary No growth in 48 hours. 06/16/23 16:15 Blood Culture (Wb) - Anticubital Left Blood Culture - Preliminary No growth in 48 hours. 06/17/23 12:05 Stool Enteric Bacteriology - Final 06/16/23 18:35 Nasal Secretion SARS-CoV-2 Antigen (Rapid) - Final Meaningful Use Info Meaningful Use Diagnoses (Choose all that apply): None applicable Discharge Plan Admission Admit Date/Time: 06/16/23 15:48 Primary Reason for Your Visit: Diarrhea and dehydration Attending Provider: Emy Willard Primary Care Provider: César Chinchilla Consulting Providers: Janel Blount; Leland Whitfield Instructions Patient Instructions: Viral Gastroenteritis, ED Diarrhea, Unknown Cause Additional Instructions / Restrictions: DISCHARGE INSTRUCTIONS PLEASE READ *Please take this with you to your next doctors appointment* -It is recommended that you hold your diltiazem, spironolactone, and furosemide. Would recommend monitoring your blood pressure and heart rate every morning and keeping a log of this. If your blood pressure begins to be consistently elevated with the top number (systolic blood pressure) over 140 prior to your next physician's appointment please call your prescribing physician for further instructions regarding possibly resuming this medication -It is recommended that you follow-up with your food service upon discharge due to multiple heart medication changes -Would recommend lab work (BMP) to check your kidney function in 2 to 3 days through your primary care physician's office. Please call their office upon discharge to obtain order for lab work. -Continue your Coumadin, will be important that you have your INR continue to be monitored, he will take 4 mg Tuesday, Tuesday, Tuesday and your subsequent days were increased to 3 mg -Weigh yourself every day. A sudden weight gain can mean you are retaining fluid. Weigh yourself at the same time of day and in the same kind of clothes. Ideally, weigh yourself first thing in the morning after you empty your bladder, but before you eat breakfast. -Please call your physician if your weight goes up by more than 2 pounds in 1 day or 5 pounds in 1 week. This can be a sign that you are retaining more fluid than you should be and may need to resume your Lasix. Clues to weight gain include checking your ankles for swelling, or noticing you are short of breath when you lie down -Please limit your sodium intake to less than 3 g/day. Here are tips: Limit canned, dried, packaged, and fast foods. Don't add salt to your food at the table. Season foods with herbs instead of salt when you cook. When you eat out, ask that the insurance compliance analyst not add any salt to your dish. Don't eat fried or greasy foods. Be careful of bottled beverages. They can contain a lot of salt -Call 911 right away if you have: -Severe shortness of breath, such that you can't catch your breath even while resting -Severe chest pain that does not resolve with rest or nitroglycerin -[place], foamy mucus with cough and shortness of breath -An ongoing rapid or irregular heartbeat -Passing out or fainting -Stroke symptoms such as sudden numbness or weakness on one side of your face, arm, or leg or sudden confusion, trouble speaking or vision changes -Please call your primary care provider's office upon discharge to schedule a hospital follow up within 1 week. -For any concerning signs or symptoms please call 911 or proceed to the nearest emergency department Discharge Orders/Prescriptions Prescriptions: New warfarin [Jantoven] 3 mg Tablet 3 mg PO SuTuThSa@1700 Qty: 0 0RF Continued tamsulosin 0.4 mg capsule 0.4 mg PO QHS levothyroxine 25 mcg tablet 50 mcg PO DAILY Patient Comments: take 1 tablet by mouth once daily acetaminophen 500 mg capsule 1,000 mg PO Q6H PRN (Reason: Pain) Linzess 72 mcg capsule 72 mcg PO DAILY PRN (Reason: Diarrhea) Hold Instructions: Resume on 02/22/23. Restart on Discharge from [facility] ascorbic acid (vitamin C) 500 mg tablet 500 mg PO DAILY finasteride 5 mg tablet 5 mg PO DAILY lidocaine 5 % adhesive patch,medicated 1 patch topical DAILY Rx Instructions: leave on most painful area for up to 12 hrs Prolia 60 MG/ML syringe 60 mg SQ .[id number] vitamin B complex Capsule 1 cap PO BID coenzyme Q10 [Co Q-10] 100 mg Capsule 100 mg PO DAILY multivitamin Tablet 1 tab PO DAILY vitamin A 7,500 mcg (25,000 unit) Capsule 25,000 unit PO DAILY polyethylene glycol 3350 17 gram Powder In Packet 17 g PO DAILY cholecalciferol (vitamin D3) [Vitamin D3] 25 mcg (1,000 unit) Capsule 1,000 unit PO DAILY amiodarone 100 mg tablet 100 mg PO BID Creon 36,000-114,000- 180,000 unit capsule,delayed release(DR/EC) See Rx Instructions PO .COMPLEX Rx Instructions: take 1-2 with snacks and 2-3 with meals sucralfate 1 gram Tablet 1 g PO TID@0700,1100,1600 30 Days Qty: 90 0RF pantoprazole 40 mg Tablet,Delayed Release (Dr/Ec) 40 mg PO DAILY 30 Days Qty: 30 0RF ondansetron 4 mg Tablet,Disintegrating 4 mg PO Q8H PRN PRN (Reason: Nausea And Vomiting) 30 Days Qty: 90 0RF magnesium citrate Solution 300 ml PO DAILY PRN (Reason: constipation) Qty: 296 0RF Rx Instructions: Drink half the bottle. If no significant stool results within 3 hours, drink the remainder of the bottle. loratadine [Claritin] 10 mg tablet 10 mg PO DAILY famotidine 40 mg tablet 40 mg PO DAILY Qty: 30 11RF lactulose 10 gram/15 mL solution 10 g PO DAILY 30 Days Qty: 450 0RF Rx Instructions: take once a day and can take up to 2 more times in a day as needed for constipation warfarin 2 mg tablet See Rx Instructions PO .COMPLEX Qty: 90 3RF Protocol: Dose Management Condition: Tuesday Dose/Route: 4 mg Instruction: 1 x 4 mg tablet Condition: Tuesday Dose/Route: 4 mg Instruction: 1 x 4 mg tablet Condition: Tuesday Dose/Route: 4 mg Instruction: 1 x 4 mg tablet Condition: Tuesday Dose/Route: 4 mg Instruction: 1 x 4 mg tablet Condition: Dose/Route: 2 mg Instruction: 1 x 2 mg tablet Condition: Tuesday Dose/Route: 2 mg Instruction: 1 x 2 mg tablet Condition: Tuesday Dose/Route: 2 mg Instruction: 1 x 2 mg tablet Protocol Text: Adjustment Start Date: Tuesday06/17/23 INR Value: 1.7 INR Date: 06/17/23 Recheck Date: 06/24/23 Patient Comments: Adjustment 01/03. Pt to take 2mg Wednesday 01/03, 2mg Thursday 01/04. Retest 01/05. Rx Instructions: 4mg Tue, Tue, Tue. 2mg Tue, , , Sat orally; Changed warfarin 4 mg tablet See Rx Instructions .Route .COMPLEX Qty: 60 0RF Protocol: Dose Management Condition: Tuesday Dose/Route: 4 mg Instruction: 1 x 4 mg tablet Condition: Tuesday Dose/Route: 4 mg Instruction: 1 x 4 mg tablet Condition: Tuesday Dose/Route: 4 mg Instruction: 1 x 4 mg tablet Condition: Tuesday Dose/Route: 4 mg Instruction: 1 x 4 mg tablet Condition: Dose/Route: 2 mg Instruction: 1 x 2 mg tablet Condition: Tuesday Dose/Route: 2 mg Instruction: 1 x 2 mg tablet Condition: Tuesday Dose/Route: 2 mg Instruction: 1 x 2 mg tablet Protocol Text: Adjustment Start Date: Tuesday06/17/23 INR Value: 1.7 INR Date: 06/17/23 Recheck Date: 06/24/23 Rx Instructions: 4mg Mon, Wed, Fri. 3mg Tue, , Th, Sat orally; Held isosorbide mononitrate 30 mg tablet extended release 24 hr 30 mg PO BID Hold Instructions: Resume on 06/29/23. furosemide 40 mg tablet 40 mg PO BID PRN (Reason: Weight Gain) Hold Instructions: Resume on 06/29/23. Rx Instructions: as needed for weight gain of 3# in one day diltiazem HCl 120 mg capsule,extended release 24hr 120 mg PO BID Qty: 60 11RF Hold Instructions: Resume on 06/29/23. metoprolol tartrate 25 mg tablet 25 mg PO BID Qty: 180 3RF Hold Instructions: Resume on 06/24/23. Discontinued baclofen 5 mg Tablet 5 mg PO TID PRN (Reason: muscle spasms) hydromorphone 2 mg Tablet 1 - 2 mg PO Q6H PRN (Reason: Pain Score 4-10) 3 Days Qty: 12 0RF cefdinir 300 mg capsule 300 mg PO Q12H Referrals / Follow Up: César Chinchilla MD [Primary Care Provider] - Within 1 Week Disposition Disposition (needs filled in before D/C Order can be placed): Jail Facility Charges/Coding Visit Charges Inpatient E&M: 52231 Disch Hosp >30min
--- NOTE | 2023-06-21 11:20 | PHA.DC.MR.R ---
Pharmacy [facility] Med Reconciliation Pharmacy Service has performed discharge medication reconciliation for this patient. The patient's discharge medication list was reviewed for discrepancies and discrepancies were resolved. Medications at Discharge Home Medications denosumab 60 mg/mL subcutaneous syringe (Prolia) 60 mg SQ .[id number] BONES 12/09/20 tamsulosin 0.4 mg capsule 0.4 mg PO QHS bladder 11/18/21 levothyroxine 25 mcg tablet 50 mcg PO DAILY thyroid 02/17/22 coenzyme Q10 100 mg capsule (Co Q-10) 100 mg PO DAILY supplement 05/01/22 vitamin B complex 1 cap PO BID supplement 05/01/22 acetaminophen 500 mg capsule 1,000 mg PO Q6H PRN Pain 06/15/22 linaclotide 72 mcg capsule (Linzess) 72 mcg PO DAILY PRN Diarrhea 06/15/22 ascorbic acid (vitamin C) 500 mg tablet 500 mg PO DAILY supplement 07/20/22 finasteride 5 mg tablet 5 mg PO DAILY prostate 08/05/22 multivitamin 1 tab PO DAILY supplement 08/16/22 furosemide 40 mg tablet 40 mg PO BID PRN Weight Gain 11/25/22 diltiazem HCl 120 mg capsule,extended release 24 hr 120 mg PO BID heart #60 caps 11/30/22 cholecalciferol (vitamin D3) 25 mcg (1,000 unit) capsule (Vitamin D3) 1,000 unit PO DAILY supplement 02/19/23 isosorbide mononitrate 30 mg tablet,extended release 24 hr 30 mg PO BID heart 02/19/23 polyethylene glycol 3350 17 gram oral powder packet 17 g PO DAILY constipation 02/19/23 vitamin A 7,500 mcg (25,000 unit) capsule 25,000 unit PO DAILY supplement 02/19/23 amiodarone 100 mg tablet 100 mg PO BID heart 02/21/23 [id number] 36,000-114,000-180,000 unit capsule,delay rel (Creon) See Rx Instructions PO .COMPLEX digestion 02/21/23 ondansetron 4 mg disintegrating tablet 4 mg PO Q8H PRN PRN Nausea And Vomiting 30 days #90 tabs 03/21/23 pantoprazole 40 mg tablet,delayed release 40 mg PO DAILY 30 days #30 tabs 03/21/23 sucralfate 1 gram tablet 1 g PO TID@0700,1100,1600 30 days #90 tabs 03/21/23 famotidine 40 mg tablet 40 mg PO DAILY stomach #30 tabs 04/11/23 lidocaine 5 % topical patch 1 patch topical DAILY 05/05/23 magnesium citrate 300 ml PO DAILY PRN constipation #296 mL 05/07/23 lactulose 10 gram/15 mL oral solution 10 g (15 mL) PO DAILY 30 days #450 mL 05/18/23 warfarin 2 mg tablet See Rx Instructions PO .COMPLEX blood thinner #90 tabs 05/27/23 loratadine 10 mg tablet (Claritin) 10 mg PO DAILY 06/16/23 metoprolol tartrate 25 mg tablet 25 mg PO BID heart #180 tabs 06/20/23 warfarin 3 mg tablet (Jantoven) 3 mg PO SuTuThSa@1700 #0 tabs 06/21/23 warfarin 4 mg tablet See Rx Instructions .Route .COMPLEX blood thinner #60 tabs 06/21/23
--- NOTE | 2023-06-21 11:37 | NURSING ---
Report called to Anna Marie VARNER at [facility] pt will go in room 10 after he eats lunch.
== END 2023-06-21 13:15 | disposition skilled nursing facility (03) | DRG 682 ==
LOC: ED 10:55 → MS3 16:13
PROVIDERS: Hospitalist; Admitting Provider Family Medicine; Emergency Provider Emergency Medicine; PCP Family Medicine; Visit Provider Internal Medicine
DX: N17.9 Acute kidney failure, unspecified (principal); E43 Unspecified severe protein-calorie malnutrition; I13.0 Hypertensive heart and chronic kidney disease with heart failure and stage 1 through stage 4 chronic kidney disease, or unspecified chronic kidney disease; I48.92 Unspecified atrial flutter; I50.32 Chronic diastolic (congestive) heart failure; Z68.1 Body mass index [BMI] 19.9 or less, adult; I27.20 Pulmonary hypertension, unspecified; K86.89 Other specified diseases of pancreas; E86.0 Dehydration; J44.9 Chronic obstructive pulmonary disease, unspecified; N18.32 Chronic kidney disease, stage 3b; I48.0 Paroxysmal atrial fibrillation; Z79.4 Long term (current) use of insulin; E03.9 Hypothyroidism, unspecified; E86.1 Hypovolemia; K29.70 Gastritis, unspecified, without bleeding; E78.5 Hyperlipidemia, unspecified; K21.9 Gastro-esophageal reflux disease without esophagitis; E87.5 Hyperkalemia; G47.33 Obstructive sleep apnea (adult) (pediatric); I25.10 Atherosclerotic heart disease of native coronary artery without angina pectoris; Z79.01 Long term (current) use of anticoagulants; A08.4 Viral intestinal infection, unspecified; R74.01 Elevation of levels of liver transaminase levels; G89.4 Chronic pain syndrome; Z95.5 Presence of coronary angioplasty implant and graft; N40.0 Benign prostatic hyperplasia without lower urinary tract symptoms; Z87.440 Personal history of urinary (tract) infections; R53.81 Other malaise
CPT/HCPCS: 36415; 76705; 76770; 80048; 80053; 81001; 82607; 82728; 82746; 83540; 83550; 83605; 83615; 83690; 83735; 84145; 85025; 85027; 85610; 86140; 87040; 87086; 87506; 87811; 93005; 94640; 94668; 97110; 97112; 97116; 97162; 97166; 97802; 99252; 99284; J7030; J7040; A4216; G0463; J2405

== ENCOUNTER 2023-06-21 13:26 | Inpatient (IN) | payer MEDICARE, OTHER, SELFPAY ==
[2023-06-21 13:33] VITALS: BP 122/77; PULSE 93; RESP 16; TEMP 36.3; O2SAT 97; BMI 17.2
[2023-06-21 15:00] VITALS: PULSE 88; RESP 18; O2SAT 96
[2023-06-21] MEDS: Sucralfate 1 GM Tablet PO (18:01)
--- NOTE | 2023-06-21 19:41 | HP.PCM_ITS ---
HPI - General General Date of Admission: 06/21/23 Date of Service: 06/21/23 Chief Complaint: Here for rehabilitation. HPI Narrative 06/16/2023 RICHIE HANSEN, is a 83 Male who presents to [facility] with nausea/vomiting/diarrhea. On Bactrim DS for urinary tract infection, nausea/vomiting/diarrhea, Bactrim DS changed to Cefdinir per PCP. Urine culture grew pansensitive E. Coli. Creatinine 4, Baseline Creatinine 1.5 to 2.0. EKG shows atrial fibrillation. Creatinine 4.33, K 5.5, elevated liver enzymes. 06/16/2023 Admit to Hospital. IV fluids for acute kidney injury, dehydration. C. Diff, Enteric panel for diarrhea. Trend BMP for hyperkalemia. 06/17/2023 Nausea, abdominal pain improved. Mild dysuria. Creatinine 3.04 with IV fluid administration. RUQ ultrasound negative for elevated liver enzymes. Hold Lasix, Hold Cardizem, Hold Metoprolol for hypotension. PT/OT for debility. 06/18/2023 Diarrhea overnight, feels weak. Urinalysis negative. Creatinine improving. Enteric panel negative. Hold IV fluids. 06/19/2023 Eating breakfast, feels stronger. Creatinine 2.21. Restart home blood pressure medications.. PT/OT for debility. 06/20/2023 Feeling better, but weak, dizzy. Blood pressure improved, Orthostatics negative. PT/OT for SNF, lives alone, patient anxious about going home alone. 06/21/2023 Admit to TCU with debility, here for rehabilitation, strengthening, prior to discharge home alone. [facility] Medical History (Updated 06/21/23 @ 19:[address] Marcus Samuel MD) Acute constipation Acute exacerbation of chronic low back pain Acute gastrointestinal bleeding Acute kidney injury superimposed on chronic kidney disease Ambulates with cane Anemia Arthritis Atherosclerotic heart disease of [place] coronary artery without angina pectoris Atrial fibrillation Atypical atrial flutter (12/2020) Back pain Benign prostatic hyperplasia BPH (benign prostatic hyperplasia) Cancer Cardiology follow-up encounter Chronic anemia Chronic heart failure with preserved ejection fraction (HFpEF) Chronic kidney disease Chronic renal insufficiency Colitis CPAP (continuous positive airway pressure) dependence Debility Diarrhea Difficulty chewing Dysphagia Easy bruising Elevated LFTs Elevated liver enzymes Essential (primary) hypertension Excessive bleeding Gastric reflux GI bleed (2013) Hiatal hernia High cholesterol History of colon polyps History of diverticulitis History of echocardiogram History of edema History of heart attack History of hyperthyroidism History of leukemia History of pain when walking History of renal disease History of stress test HLD (hyperlipidemia) Hypothyroidism Kidney disease Kidney stones Myocardial infarct Nausea and vomiting Non-rheumatic tricuspid valve insufficiency Non-smoker Nonrheumatic mitral (valve) insufficiency 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 Osteoarthritis Paroxysmal atrial fibrillation Secondary pulmonary arterial hypertension Sleep apnea Sleep apnea Stage 3b chronic kidney disease Thoracic aortic aneurysm (TAA) Thyroid disease Wears glasses Home Medications denosumab 60 mg/mL subcutaneous syringe (Prolia) 60 mg SQ [id number] BONES 12/09/20 [History Last Taken 11/10/22] tamsulosin 0.4 mg capsule 0.4 mg PO QHS bladder 11/18/21 [History Last Taken 06/20/23] levothyroxine 25 mcg tablet 50 mcg PO DAILY thyroid 02/17/22 [History Last Taken 06/21/23] coenzyme Q10 100 mg capsule (Co Q-10) 100 mg PO DAILY supplement 05/01/22 [History Last Taken 02/12/23] vitamin B complex 1 cap PO BID supplement 05/01/22 [History Last Taken 02/12/23] acetaminophen 500 mg capsule 1,000 mg PO Q6H PRN Pain 06/15/22 [History Last Taken Unknown] linaclotide 72 mcg capsule (Linzess) 72 mcg PO DAILY PRN Diarrhea 06/15/22 [H istory Last Taken Unknown] ascorbic acid (vitamin C) 500 mg tablet 500 mg PO DAILY supplement 07/20/22 [History Last Taken 06/21/23] finasteride 5 mg tablet 5 mg PO DAILY prostate 08/05/22 [History Last Taken 06/21/23] multivitamin 1 tab PO DAILY supplement 08/16/22 [History Last Taken 02/12/23] furosemide 40 mg tablet 40 mg PO BID PRN Weight Gain 11/25/22 [History Last Taken Unknown] diltiazem HCl 120 mg capsule,extended release 24 hr 120 mg PO BID heart #60 caps 11/30/22 [Rx Last Taken 02/12/23] cholecalciferol (vitamin D3) 25 mcg (1,000 unit) capsule (Vitamin D3) 1,000 unit PO DAILY supplement 02/19/23 [History Last Taken Unknown] isosorbide mononitrate 30 mg tablet,extended release 24 hr 30 mg PO BID heart 02/19/23 [History Last Taken Unknown] polyethylene glycol 3350 17 gram oral powder packet 17 g PO DAILY constipation 02/19/23 [History Last Taken Unknown] vitamin A 7,500 mcg (25,000 unit) capsule 25,000 unit PO DAILY supplement 02/19/23 [History Last Taken Unknown] amiodarone 100 mg tablet 100 mg PO BID heart 02/21/23 [History Last Taken 06/21/23] [id number] 36,000-114,000-180,000 unit capsule,delay rel (Creon) See Rx Instructions PO .COMPLEX digestion 02/21/23 [History Last Taken Unknown] ondansetron 4 mg disintegrating tablet 4 mg PO Q8H PRN PRN Nausea And Vomiting 30 days #90 tabs 03/21/23 [Rx Last Taken Unknown] pantoprazole 40 mg tablet,delayed release 40 mg PO DAILY stomach 30 days #30 tabs 03/21/23 [Rx Last Taken 06/21/23] sucralfate 1 gram tablet 1 g PO TID@0700,1100,1600 stomach 30 days #90 tabs 03/21/23 [Rx Last Taken 06/21/23] famotidine 40 mg tablet 40 mg PO DAILY stomach #30 tabs 04/11/23 [Rx Last Taken Unknown] lidocaine 5 % topical patch 1 patch topical DAILY pain 05/05/23 [History Last Taken Unknown] magnesium citrate 300 ml PO DAILY PRN constipation #296 mL 05/07/23 [Rx Last Taken Unknown] lactulose 10 gram/15 mL oral solution 10 g (15 mL) PO DAILY constipation 30 days #450 mL 05/18/23 [Rx Last Taken Unknown] warfarin 2 mg tablet See Rx Instructions PO .COMPLEX blood thinner #90 tabs 05/27/23 [Rx Last Taken Unknown] loratadine 10 mg tablet (Claritin) 10 mg PO DAILY allergies 06/16/23 [History Last Taken Unknown] metoprolol tartrate 25 mg tablet 25 mg PO BID heart #180 tabs 06/20/23 [Rx Last Taken Unknown] warfarin 3 mg tablet (Jantoven) 3 mg PO SuTuThSa@1700 blood thinner #0 tabs 06/21/23 [Rx Last Taken 06/19/23] warfarin 4 mg tablet See Rx Instructions .Route .COMPLEX blood thinner #60 tabs 06/21/23 [Rx Last Taken 06/20/23] Allergy/AdvReac Type Severity Reaction Status Date / Time diclofenac Allergy rash Verified 06/16/23 10:29 prednisone Allergy Rash Verified 06/16/23 10:29 Family History Father Cancer Prostate cancer Mother Hypertension Sister Hypertension Surgical History History of back surgery History of back surgery History of cardiac catheterization History of cardioversion (06/18/19) History of coronary artery stent placement (08/04/00) History of electrophysiologic study (08/08/00) History of esophagogastroduodenoscopy (EGD) History of hemorrhoidectomy History of hernia repair History of left heart catheterization (07/17/12) History of Zenaida fundoplication History of radiofrequency ablation procedure for cardiac arrhythmia (11/11/11) Social History household members: none Smoking Status: Never smoker alcohol intake: never substance use type: does not use caffeine: No ROS Constitutional Constitutional: Denies chills, fever(s) or weight gain ENT HEENT: Denies headache(s), nasal congestion or nasal discharge Cardiovascular Cardiovascular: Denies chest pain or palpitations Respiratory/Chest Respiratory/Chest: Denies cough, excessive phlegm production or shortness of breath with exertion Gastrointestinal Gastrointestinal: Denies abdominal pain, nausea or vomiting Genitourinary Genitourinary: Denies dysuria Musculoskeletal Musculoskeletal: Denies joint pain or joint swelling Integumentary Integumentary: Denies rash or wounds Neurologic Neurologic: Denies focal weakness, numbness or tingling Psychiatric Psychiatric: Denies anxiety, auditory hallucinations, depression, homicidal ideation or suicidal ideation Vital Signs Vital Signs Vital Signs: 06/21/23 13:33 06/21/23 15:00 Temperature 97.4 F L Temperature Source Temporal Pulse Rate 93 88 Pulse Rhythm Irregular Pulse Strength Normal (2+) Respiratory Rate 16 18 Respiratory Effort Normal Respiratory Depth Normal Respiratory Pattern Normal Blood Pressure 122/77 H Blood Pressure Mean 92 Blood Pressure Source Monitor Blood Pressure Position Sitting Blood Pressure Location Right Arm Pulse Ox 97 96 Oxygen Delivery Method Room Air Room Air Weight Weight: 51.573 kg Body Mass Index (BMI) 17.2 Physical Exam Const alert General Appearance: cooperative HEENT normocephalic Eyes PERRL and EOMs intact bilaterally Neck supple, no JVD and no carotid bruits Resp normal respiratory effort, normal air movement and clear to auscultation bilaterally Cardio regular rate and regular rhythm GI normal to inspection, nondistended, normoactive bowel sounds, non-tender and non-distended Extremity normal capillary refill General Extremity: Negative for edema Skin no rashes or lesions noted General Skin Exam: no breakdown Psych affect normal Appearance: appropriate Assessment & Plan Assessment/Plan (1) Debility: (2) FE (acute kidney injury): (3) Transaminitis: (4) Dehydration: (5) Acute hyperkalemia: (6) Atrial fibrillation, controlled: (7) Chronic kidney disease, stage 3b: (8) Osteoporosis: (9) BPH (benign prostatic hyperplasia): (10) Hypothyroidism: (11) Muscle spasm: (12) Constipation: (13) Coronary artery disease: (14) GERD (gastroesophageal reflux disease): PLAN: Plan 83 year old male with below past medical history hospitalized for acute kidney injury, dehydration, elevated liver enzymes, hyperkalemia, admitted to TCU with debility, here for rehabilitation, strengthening, prior to discharge home alone. * Debility - PT/OT. * Pain - Tylenol 1000mg q6 prn pain (1-10), Lidoderm patch 1 patch topical daily. * Bowel - Miralax 17gm daily, Lactulose 10gm daily, Magnesium citrate 300ml daily prn. * Adult immunization - Administer pneumonia vaccine, covid19 vaccine, flu vaccine as appropriate. * DVT prophylaxis - on Warfarin. * Atrial fibrillation - Amiodarone 100mg bid, Warfarin 4mg 3 days/week, 3mg 4 days/week, monitor INR. * Vitamin C deficiency - Vitamin C 500mg daily. * Vitamin D deficiency - D3 25mcg daily. * Nutrition - Ensure Plus 120ml tidcm, MVI 1 tablet daily. * GERD - Famotidine 40mg daily, Sucralfate 1gm tid. * BPH - Finasteride 5mg daily, Tamsulosin 0.4mg daily. * Hypothyroidism - Levothyroxine 50mcg daily. * Allergic rhinitis - Loratadine 10mg po q48h. * Nausea - Zofran odt 4mg q8 prn. * Leg cramps - Vitamin B complex daily.
[2023-06-21] MEDS: Tamsulosin HCl 0.4 MG Capsule PO (21:16)
[2023-06-21] MEDS: Vitamin B Comp W-C Capsule 1 CAP PO (21:17)
[2023-06-21] MEDS: Amiodarone 200 MG Tablet 100 MG PO (21:17)
[2023-06-22] MEDS: Acetaminophen 500 MG Tablet 1000 MG PO ×2 (00:18→20:14)
[2023-06-22] MEDS: Levothyroxine 50 MCG Tablet PO (05:28)
[2023-06-22] MEDS: Sucralfate 1 GM Tablet PO ×3 (05:28→16:56)
[2023-06-22 05:53] LABS: Absolute Lymphocyte Count 0.69 X10^3/uL (0.83-4.51); Absolute Neutrophil Count 7.7 X10^3/uL (2.0-7.7); Basophil# 0.04 X10^3/uL; Basophil% 0.4 % (0-1); Eosinophil# 0.12 X10^3/uL; Eosinophils% 1.3 % (0-5); Hematocrit 33.9 % (40-54); Hemoglobin 11.1 g/dL (13.0-16.5); Lymphocyte # 0.69 X10^3/ul (0.83-4.51); Lymphocyte % 7.5 % (19-41); Mean Corp Hgb Conc 32.7 g/dL (32-36); Mean Corpuscular Hgb 33.2 pg (27.0-32.0); Mean Corpuscular Volume 101.5 fL (80-94); Monocyte# 0.49 X10^3/uL; Monocyte% 5.3 % (0-10); NRBC Flagged by Analyzer 0 % (0-5); Neutrophil # 7.65 X10^3/uL (2.7-7.7); Neutrophil % 83.5 % (47-70); POSITIVE MORPHOLOGY YES; Platelet Count 204 K/mm3 (150-450); RBC Distribution Width CV 18.9 % (11.6-14.6); RBC Distribution Width SD 71.1 fl (35.1-43.9); Red Blood Count 3.34 M/mm3 (4.6-6.2); White Blood Count 9.2 K/mm3 (4.4-11.0)
[2023-06-22 06:02] LABS: Differential Indicated SCAN CRITERIA MET
[2023-06-22 06:22] LABS: Anion Gap 3 (5-15); BUN 47 mg/dL (7-18); BUN/Creat Ratio 26.7 RATIO (10-20); Calcium,Total 8.1 mg/dL (8.5-10.1); Chloride 115 mmol/L (98-107); Creatinine, Serum 1.76 mg/dL (0.70-1.30); EST Glomerular Filtration Rate 40 mL/min (>60); Est Glom Filt Rate - Afr Amer 48 mL/min (>60); Estimated Creatinine Clearance 23.61 ml/min; Glucose 102 mg/dL (74-106); Potassium 4.5 mmol/L (3.5-5.1); Sodium Level 142 mmol/L (136-145)
[2023-06-22 07:17] LABS: Anisocytosis 1+; Differential Comment SCANNED
[2023-06-22 07:18] LABS: Macrocytosis 1+
[2023-06-22] MEDS: Lactulose 20 GM/30 ML UDC 10 GM PO (08:25)
[2023-06-22] MEDS: Multivitamins,Therapeutic Tablet 1 TABLET PO (08:25)
[2023-06-22] MEDS: Cholecalciferol (VIT D3) 25 MCG TABLET (1,000 UNITS) PO (08:25)
[2023-06-22] MEDS: Vitamin B Comp W-C Capsule 1 CAP PO ×2 (08:25→20:11)
[2023-06-22] MEDS: Ascorbic Acid 500 MG Tablet PO (08:25)
[2023-06-22] MEDS: Amiodarone 200 MG Tablet 100 MG PO ×2 (08:26→20:11)
[2023-06-22] MEDS: Lidocaine 5% Patch 1 PATCH TOPICAL (08:26)
[2023-06-22] MEDS: Famotidine 20 MG Tablet 40 MG PO (08:29)
[2023-06-22] MEDS: Finasteride 5 MG Tablet PO (08:30)
[2023-06-22 10:00] VITALS: RESP 18
--- NOTE | 2023-06-22 11:02 | NURSING ---
Packer [employer] Note; Activity Asset: Oscar Mcgregor has returned to TCU for more therapy and remains independent in his choice of daily activities. He will watch tv, read and visit w/family friends and his dog. He was informed of the pet policy and that his pet may visits. He has stated he will welcome visit from the stringer machine tender and therapy and he is not interested in group activities at this item. Staff will continue to remind him of daily activities and respect his right to say No.
[2023-06-22] MEDS: Flu Vacc QS2023-24(65YR UP)/PF 240 MCG/0.7 ML Syringe IM (11:58)
[2023-06-22] MEDS: Polyethylene Glycol 3350 17 GM PACKET PO (12:02)
[2023-06-22] MEDS: Tuberculin,Purif.prot.deriv. 50 TU/ML Vial 0.1 ML ID (12:07)
[2023-06-22] MEDS: Ensure Plus High Protein 120 ML LIQUID PO ×2 (13:33→17:04)
--- NOTE | 2023-06-22 15:08 | CASEMGMT ---
Social Work Met with patient to complete initial assessment. Pt known to this worker from previous stay. Verified contacts. Pt confirmed full code as a code status. Educated to Medicare benefit and copay coverage. SW requested MIKE provide copies of advanced directives, but pt stated he is in the process of updating them so will not provide until that is completed. Pt's goal is to return home alone at [facility]. SW will continue to follow for DC planning. NAUN BeckwithW
[2023-06-22 15:39] VITALS: BP 124/74; PULSE 87; RESP 18; TEMP 36.3; O2SAT 96
[2023-06-22] MEDS: Tamsulosin HCl 0.4 MG Capsule PO (20:11)
[2023-06-22] MEDS: MELATONIN 10 MG TABLET PO (20:11)
[2023-06-23] MEDS: Levothyroxine 50 MCG Tablet PO (05:18)
[2023-06-23 06:51] LABS: International Normalized Ratio 1.7; Prothrombin Time (Protime)PT. 20.2 SECONDS (11.7-14.9)
[2023-06-23] MEDS: Sucralfate 1 GM Tablet PO ×3 (08:09→16:47)
[2023-06-23] MEDS: Loratadine 10 MG Tablet PO (08:10)
[2023-06-23] MEDS: Lactulose 20 GM/30 ML UDC 10 GM PO (08:10)
[2023-06-23] MEDS: Vitamin B Comp W-C Capsule 1 CAP PO ×2 (08:10→21:15)
[2023-06-23] MEDS: Multivitamins,Therapeutic Tablet 1 TABLET PO (08:10)
[2023-06-23] MEDS: Cholecalciferol (VIT D3) 25 MCG TABLET (1,000 UNITS) PO (08:11)
[2023-06-23] MEDS: Amiodarone 200 MG Tablet 100 MG PO ×2 (08:11→21:15)
[2023-06-23] MEDS: Polyethylene Glycol 3350 17 GM PACKET PO (08:12)
[2023-06-23] MEDS: Famotidine 20 MG Tablet 40 MG PO (08:12)
[2023-06-23] MEDS: Finasteride 5 MG Tablet PO (08:12)
[2023-06-23] MEDS: Ascorbic Acid 500 MG Tablet PO (08:12)
[2023-06-23] MEDS: Acetaminophen 500 MG Tablet 1000 MG PO ×2 (08:21→16:55)
[2023-06-23] MEDS: Lidocaine 5% Patch 1 PATCH TOPICAL (09:19)
[2023-06-23] MEDS: Ondansetron ODT 4 MG Tablet PO (10:44)
[2023-06-23 13:38] VITALS: BP 122/74; PULSE 100; RESP 16; TEMP 36.4; O2SAT 98
[2023-06-23] MEDS: Sodium Chloride 0.65% 1 SPRAY SPRAY.BTL 2 SPRAY NASAL ×2 (14:59→21:20)
[2023-06-23] MEDS: Ensure Plus High Protein 120 ML LIQUID PO (18:52)
[2023-06-23] MEDS: Tamsulosin HCl 0.4 MG Capsule PO (21:14)
[2023-06-23] MEDS: MELATONIN 10 MG TABLET PO (21:14)
[2023-06-23] MEDS: MENTHOL 226.8 GM JAR 1 APPLIC TOPICAL (21:14)
[2023-06-24 06:00] VITALS: BMI 20.5
[2023-06-24] MEDS: Levothyroxine 50 MCG Tablet PO (06:09)
[2023-06-24] MEDS: Sucralfate 1 GM Tablet PO ×3 (06:09→16:31)
[2023-06-24 06:42] LABS: Anion Gap 5 (5-15); BUN 45 mg/dL (7-18); Calcium,Total 8.3 mg/dL (8.5-10.1); Chloride 115 mmol/L (98-107); Creatinine, Serum 1.73 mg/dL (0.70-1.30); EST Glomerular Filtration Rate 40 mL/min (>60); Est Glom Filt Rate - Afr Amer 49 mL/min (>60); Estimated Creatinine Clearance 24.01 ml/min; Glucose 95 mg/dL (74-106); Potassium 3.9 mmol/L (3.5-5.1); Sodium Level 142 mmol/L (136-145)
[2023-06-24 10:00] VITALS: PULSE 80; RESP 18; O2SAT 99
[2023-06-24] MEDS: Lidocaine 5% Patch 1 PATCH TOPICAL (10:18)
[2023-06-24] MEDS: Polyethylene Glycol 3350 17 GM PACKET PO (10:18)
[2023-06-24] MEDS: Lactulose 20 GM/30 ML UDC 10 GM PO (10:19)
[2023-06-24] MEDS: Multivitamins,Therapeutic Tablet 1 TABLET PO (10:20)
[2023-06-24] MEDS: Amiodarone 200 MG Tablet 100 MG PO ×2 (10:20→21:20)
[2023-06-24] MEDS: Cholecalciferol (VIT D3) 25 MCG TABLET (1,000 UNITS) PO (10:20)
[2023-06-24] MEDS: Finasteride 5 MG Tablet PO (10:20)
[2023-06-24] MEDS: Famotidine 20 MG Tablet 40 MG PO (10:20)
[2023-06-24] MEDS: Ascorbic Acid 500 MG Tablet PO (10:20)
[2023-06-24] MEDS: Vitamin B Comp W-C Capsule 1 CAP PO ×2 (10:20→21:20)
[2023-06-24 10:27] VITALS: BP 114/79; PULSE 80; RESP 18; O2SAT 99
[2023-06-24 12:15] VITALS: TEMP 36.2
[2023-06-24] MEDS: Ensure Plus High Protein 120 ML LIQUID PO (16:32)
[2023-06-24] MEDS: MELATONIN 10 MG TABLET PO (21:20)
[2023-06-24] MEDS: Tamsulosin HCl 0.4 MG Capsule PO (21:20)
[2023-06-25] MEDS: Acetaminophen 500 MG Tablet 1000 MG PO ×2 (00:17→23:47)
[2023-06-25] MEDS: Ondansetron ODT 4 MG Tablet PO (02:37)
[2023-06-25] MEDS: Levothyroxine 50 MCG Tablet PO (05:19)
[2023-06-25] MEDS: Sucralfate 1 GM Tablet PO ×3 (05:19→16:33)
[2023-06-25 05:29] VITALS: BMI 20.5
[2023-06-25 08:23] LABS: Anion Gap 6 (5-15); BUN 43 mg/dL (7-18); BUN/Creat Ratio 26.2 RATIO (10-20); Calcium,Total 8.3 mg/dL (8.5-10.1); Chloride 114 mmol/L (98-107); Creatinine, Serum 1.64 mg/dL (0.70-1.30); EST Glomerular Filtration Rate 43 mL/min (>60); Est Glom Filt Rate - Afr Amer 52 mL/min (>60); Estimated Creatinine Clearance 30.16 ml/min; Glucose 83 mg/dL (74-106); Sodium Level 142 mmol/L (136-145)
[2023-06-25 09:09] VITALS: BP 127/86; PULSE 79; RESP 15; TEMP 36.3; O2SAT 96
[2023-06-25] MEDS: Ensure Plus High Protein 120 ML LIQUID PO ×3 (09:14→17:07)
[2023-06-25] MEDS: Lidocaine 5% Patch 1 PATCH TOPICAL (09:17)
--- NOTE | 2023-06-25 09:20 | NURSING ---
dressing changed to RT wrist per order. old one loose and falling off.
[2023-06-25] MEDS: Ascorbic Acid 500 MG Tablet PO (09:21)
[2023-06-25] MEDS: Multivitamins,Therapeutic Tablet 1 TABLET PO (09:21)
[2023-06-25] MEDS: Loratadine 10 MG Tablet PO (09:22)
[2023-06-25] MEDS: Cholecalciferol (VIT D3) 25 MCG TABLET (1,000 UNITS) PO (09:22)
[2023-06-25] MEDS: Vitamin B Comp W-C Capsule 1 CAP PO ×2 (09:22→21:17)
[2023-06-25] MEDS: Amiodarone 200 MG Tablet 100 MG PO ×2 (09:23→21:17)
[2023-06-25] MEDS: Finasteride 5 MG Tablet PO (09:24)
[2023-06-25] MEDS: Famotidine 20 MG Tablet 40 MG PO (09:24)
[2023-06-25] MEDS: MENTHOL 226.8 GM JAR 1 APPLIC TOPICAL ×2 (17:01→23:48)
[2023-06-25 20:12] VITALS: PULSE 91; RESP 16; O2SAT 91
[2023-06-25] MEDS: MELATONIN 10 MG TABLET PO (21:17)
[2023-06-25] MEDS: Tamsulosin HCl 0.4 MG Capsule PO (21:17)
[2023-06-26 06:00] VITALS: BMI 20.8
[2023-06-26] MEDS: Levothyroxine 50 MCG Tablet PO (06:45)
[2023-06-26] MEDS: Sucralfate 1 GM Tablet PO ×3 (06:45→16:44)
[2023-06-26] MEDS: Acetaminophen 500 MG Tablet 1000 MG PO ×2 (06:50→21:27)
[2023-06-26 07:43] LABS: Anion Gap 4 (5-15); BUN 45 mg/dL (7-18); BUN/Creat Ratio 28.3 RATIO (10-20); Calcium,Total 8.1 mg/dL (8.5-10.1); Chloride 114 mmol/L (98-107); Creatinine, Serum 1.59 mg/dL (0.70-1.30); EST Glomerular Filtration Rate 45 mL/min (>60); Est Glom Filt Rate - Afr Amer 54 mL/min (>60); Estimated Creatinine Clearance 31.11 ml/min; Glucose 91 mg/dL (74-106); Sodium Level 139 mmol/L (136-145)
[2023-06-26 08:31] VITALS: BP 133/82; PULSE 89; RESP 16; TEMP 36.3; O2SAT 94
[2023-06-26] MEDS: Ensure Plus High Protein 120 ML LIQUID PO ×2 (08:32→17:39)
[2023-06-26] MEDS: Multivitamins,Therapeutic Tablet 1 TABLET PO (08:33)
[2023-06-26] MEDS: Vitamin B Comp W-C Capsule 1 CAP PO ×2 (08:34→21:27)
[2023-06-26] MEDS: Ascorbic Acid 500 MG Tablet PO (08:34)
[2023-06-26] MEDS: Cholecalciferol (VIT D3) 25 MCG TABLET (1,000 UNITS) PO (08:34)
[2023-06-26] MEDS: Lidocaine 5% Patch 1 PATCH TOPICAL (08:35)
[2023-06-26] MEDS: Famotidine 20 MG Tablet 40 MG PO (08:36)
[2023-06-26] MEDS: Amiodarone 200 MG Tablet 100 MG PO ×2 (08:37→21:27)
[2023-06-26] MEDS: Finasteride 5 MG Tablet PO (08:37)
[2023-06-26 10:00] VITALS: PULSE 89
--- NOTE | 2023-06-26 10:37 | PCM.PN.DRR ---
Documented by User: Shahram Santana 06/26/23 11:33 TCU RX Drug Regimen Review Subjective/Objective Subjective/Objective: Subjective: 83 year old male with below past medical history hospitalized for acute kidney injury, dehydration, elevated liver enzymes, hyperkalemia, admitted to TCU with debility, here for rehabilitation, strengthening, prior to discharge home alone. Objective: Allergies diclofenac Allergy (Verified 06/16/23 10:29) rash prednisone Allergy (Verified 06/16/23 10:29) Rash Current Medications Generic Name Dose Route Start Last Admin Trade Name Freq PRN Reason Stop Dose Admin Acetaminophen 1,000 mg 06/21/23 13:58 06/26/23 06:50 Acetaminophen 500 Mg Tablet PO 1,000 mg Q6H PRN Administration Pain 1-10 Amiodarone HCl 100 mg 06/21/23 22:00 06/26/23 08:37 Amiodarone 200 Mg Tablet PO 100 mg BID ILEANA Administration Ascorbic Acid 500 mg 06/22/23 08:00 06/26/23 08:34 Ascorbic Acid 500 Mg Tablet PO 500 mg DAILYCM ILEANA Administration Cholecalciferol 25 mcg 06/22/23 08:00 06/26/23 08:34 Cholecalciferol (Vit D3) 25 Mcg Tablet (1,000 Units) PO 25 mcg DAILYCM ILEANA Administration Famotidine 40 mg 06/22/23 10:00 06/26/23 08:36 Famotidine 20 Mg Tablet PO 40 mg DAILY ILEANA Administration Finasteride 5 mg 06/22/23 10:00 06/26/23 08:37 Finasteride 5 Mg Tablet PO 5 mg DAILY ILEANA Administration Lactulose 10 gm 06/22/23 10:00 06/26/23 08:35 Lactulose 20 Gm/30 Ml Udc PO Not Given DAILY ILEANA Levothyroxine Sodium 50 mcg 06/22/23 06:00 06/26/23 06:45 Levothyroxine 50 Mcg Tablet PO 50 mcg DAILY@0600 ILEANA Administration Lidocaine 1 patch 06/22/23 10:00 06/26/23 08:35 Lidocaine 5% Patch TOPICAL 1 patch DAILY ILEANA Administration Protocol Linaclotide 72 mcg 06/22/23 11:05 Linaclotide 72 Mcg Capsule PO DAILY PRN Diarrhea Loratadine 10 mg 06/23/23 10:00 06/25/23 09:22 Loratadine 10 Mg Tablet PO 10 mg Q48 ILEANA Administration Magnesium Citrate 300 ml 06/21/23 13:58 Magnesium Citrate 300 Ml PO DAILY PRN constipation Melatonin 10 mg 06/22/23 22:00 06/25/23 21:17 Melatonin 10 Mg Tablet PO 10 mg QHS ILEANA Administration Menthol 1 applic 06/22/23 07:50 06/25/23 23:48 Menthol 226.8 Gm Jar TOPICAL 1 applic 4X/DAY PRN PRN Administration RASH/TOPICAL IRRITATION Multivitamins 1 tablet 06/22/23 08:00 06/26/23 08:33 Multivitamins,Therapeutic Tablet PO 1 tablet DAILYCM ILEANA Administration Multivitamins 1 cap 06/21/23 22:00 06/26/23 08:34 Vitamin B Comp W-C Capsule PO 1 cap BID ILEANA Administration Nutritional Formula (Lactose Free) 120 ml 06/21/23 17:45 06/26/23 08:32 Ensure Plus High Protein 120 Ml Liquid PO 120 ml TIDCM ILEANA Administration Ondansetron HCl 4 mg 06/21/23 13:58 06/25/23 02:37 Ondansetron Odt 4 Mg Tablet PO 4 mg Q8H PRN PRN Administration Nausea And Vomiting Polyethylene Glycol 17 gm 06/22/23 10:00 06/26/23 08:36 Polyethylene Glycol 3350 17 Gm Packet PO Not Given DAILY [facility] Sodium Chloride 10 - 40 ml 06/21/23 13:43 0.9% Saline Lock 10 Ml Syringe IV UD PRN SALINE FLUSH Sodium Chloride 2 spray 06/23/23 08:00 06/23/23 21:20 Sodium Chloride 0.65% 1 [place].Btl NASAL 2 spray TID PRN PRN Administration NASAL DRYNESS Sucralfate 1 gm 06/21/23 16:00 06/26/23 06:45 Sucralfate 1 Gm Tablet PO 1 gm TID@0700,1100,1600 [facility] Administration Tamsulosin HCl 0.4 mg 06/21/23 22:00 06/25/23 21:17 Tamsulosin Hcl 0.4 Mg Capsule PO 0.4 mg QHS ILEANA Administration Tuberculin PPD 0.1 ml 06/29/23 10:00 Tuberculin,Purif.Prot.Deriv. 50 Tu/Ml Vial ID 06/29/23 10:01 X1 ONE Warfarin Sodium 0 mg 06/22/23 17:00 06/24/23 16:37 Warfarin 4 Mg Tablet PO 4 mg MoWeFr@1700 [facility] Administration Warfarin Sodium 3 mg 06/21/23 17:00 06/25/23 17:04 Warfarin 3 Mg Tablet PO 3 mg SuTuThSa@1700 [facility] Administration Problem List (Updated 06/22/23 @ 00:03 by Background Lorie) Muscle spasm (Acute) Hypothyroidism (Acute) Atrial fibrillation, controlled (Acute) Transaminitis (Acute) FE (acute kidney injury) (Acute) GERD (gastroesophageal reflux disease) (Acute) Coronary artery disease (Acute) Osteoporosis (Acute) BPH (benign prostatic hyperplasia) (Acute) Chronic kidney disease, stage 3b (Acute) Debility (Acute) Vital Signs Temp Pulse Resp BP Pulse Ox O2 Del Method 97.3 F L 89 16 133/82 H 94 Room Air 06/26/23 08:31 06/26/23 08:31 06/26/23 08:31 06/26/23 08:31 06/26/23 08:31 06/26/23 08:31 Oxygen Delivery Method Room Air Weight: 61.41 kg Body Mass Index (BMI) 20.5 Sodium 139 mmol/L (136-145) 06/26/23 07:09 Potassium 4.0 mmol/L (3.5-5.1) 06/26/23 07:09 Chloride 114 mmol/L (98-107) H 06/26/23 07:09 Carbon Dioxide 21.0 mmol/L (21.0-32.0) 06/26/23 07:09 Anion Gap 4 (5-15) L 06/26/23 07:09 BUN 45 mg/dL (7-18) H 06/26/23 07:09 Creatinine 1.59 mg/dL (0.70-1.30) H 06/26/23 07:09 Est GFR (MDRD) Af Amer 54 mL/min (>60) L 06/26/23 07:09 Est GFR (MDRD) Non-Af 45 mL/min (>60) L 06/26/23 07:09 BUN/Creatinine Ratio 28.3 RATIO (10-20) H 06/26/23 07:09 Glucose 91 mg/dL (74-106) 06/26/23 07:09 Assessment/Plan: 1. Pain: acetaminophen 1000 mg PO Q6H PRN pain (1-10), lidocaine patch 1 topically daily (on 12 hours off 12 hours). The patient has used 7 doses of PRN acetaminophen so far this admission. Please continue to monitor pain levels, PRN medication usage, LFTs (AST/ALT = 51/182 on 06/21/23), and for erythema at patch location. 2. Bowel: lactulose 10 grams PO daily, magnesium citrate 300 mL PO daily PRN constipation, polyethylene glycol 17 grams PO daily, linaclotide 72 mcg PO daily PRN diarrhea. The patient has not required any PRN doses of magnesium citrate or linaclotide yet this admission, the patient's last bowel movement was 06/25/23. Please continue to monitor for PRN medication usage, for constipation and diarrhea, abdominal pain, and bowel movements. 3. Atrial fibrillation: amiodarone 100 mg PO BID, warfarin 4 mg on Tuesday, Tuesday, warfarin 3 mg PO on Tuesday, Tuesday, , Tuesday. Please continue to monitor for s/s that the patient is in atrial fibrillation such as palpitations, heart rates (recent range 53-110 beats/min), for s/s of stroke, LFTs (AST/ALT = 51/182 on 06/21/23), thyroid function tests (TSH = 3.39 uIU/mL on 03/31/23, with free T4 = 1.38 ng/dL on ), lung function including respirator rate (recent range = 15-18 breaths/min), oxygen saturation (recent range = 91-99%), for s/s of bleeding/excessive bruising, hemoglobin levels (Hgb = 11.1 g/dL on 06/22/23), platelet count (PLT = 204 K/mm3 on 06/22/23), and INR levels (INR = 1.7 on 06/23/23). If repeat INR on Tuesday continues to remain < 2.0, consider increasing to warfarin 4 mg daily (last several INRs have been low). 4. Hypothyroidism: levothyroxine 50 mcg PO daily. Please continue to monitor for s/s of hypo/hyperthyroidism and thyroid function levels (TSH = 3.39 uIU/mL on 03/31/23, with free T4 = 1.38 ng/dL on ). 5. BPH: finasteride 5 mg PO daily, tamsulosin 0.4 mg PO daily at bedtime. Please continue to monitor for s/s of urinary retention, urinary stream, blood pressures (recent range = 111-139/74-103 mmHg), and for s/s of orthostasis. 6. GERD: famotidine 40 mg PO daily, sucralfate 1 gram PO TID. Please continue to monitor for s/s of GERD, renal function (serum creatinine = 1.59 mg/dL with creatinine clearance ~ 31 mL/min on 06/26/23), platelet counts (PLT = 204 K/mm3 on 06/22/23), and for delirium. 7. Nutrition/Vitamin C deficiency/Vitamin D deficiency: ensure plus high protein 120 mL three times daily with meals, ascorbic acid 500 mg PO BID with meals, cholecalciferol 25 mcg PO daily with a meal, multivitamin 1 tablet daily with a meal,. Please continue to monitor nutritional status, for s/s fo vitamin C and vitamin D deficiencies, for renal stones, and vitamin D levels (Vitamin D = 44.2 ng/mL on 03/01/23). 8. Allergic rhinitis/nasal dryness: loratadine 10 mg PO daily, sodium chloride nasal spray, 2 sprays in each nostril TID PRN nasal dryness. The patient has used 2 doses of sodium chloride nasal spray so far this admission. Please continue to monitor for s/s of allergic rhinitis and nasal dryness, PRN medication usage and headaches. 9. Nausea: ondansetron 4 mg PO Q8H PRN nausea. The patient has used 2 doses of PRN ondansetron so far this admission. Please continue to monitor for nausea and PRN medication usage as well as for constipation and headache. 10. Leg cramps: vitamin B complex with vitamin C 1 tablet PO daily. Please continue to monitor for leg cramps. 11. Skin irritation/rash: menthol topically 1 application 4 times daily PRN rash or topical irritation. The patient has used 4 doses of topical menthol so far this admission. Please continue to monitor for PRN medication usage as well as for rash and skin irritation. 12. Insomnia: melatonin 10 mg PO QHS. Please continue to monitor for insomnia. If the patient is not getting adequate relief from melatonin please consider administering melatonin 2 hours prior to desired initiation of sleep. Assessment/Plan for indications treated with psychotropic medications: NA Medical chart and medication regimen reviewed. The following medication irregularities or issues were identified: 1. Atrial fibrillation: amiodarone 100 mg PO BID, warfarin 4 mg on Tuesday, Tuesday, warfarin 3 mg PO on Tuesday, Tuesday, , Tuesday. If repeat INR on Tuesday continues to remain < 2.0, consider increasing to warfarin 4 mg daily (last several INRs have been low). Date Date of Note:: 06/26/23 Documented by User: Dr. Marcus Samuel MD 06/26/23 16:25 TCU RX Drug Regimen Review Provider Comments Provider responsibility Provider Comments to Recommendations by Pharmacy: Agree
--- NOTE | 2023-06-26 15:43 | NURSING ---
dr hess notified of pt c/o HAs and feels that its from claritin, only takes as needed at home, scheduled Q48yrs here. c/o indigestion and requesting mylanta d/t hiatal hernia. new order mylanta and claritin changed to PRN
[2023-06-26] MEDS: Tamsulosin HCl 0.4 MG Capsule PO (21:27)
[2023-06-26] MEDS: MELATONIN 10 MG TABLET PO (21:27)
[2023-06-26] MEDS: MENTHOL 226.8 GM JAR 1 APPLIC TOPICAL (21:30)
[2023-06-26] MEDS: Ondansetron ODT 4 MG Tablet PO (21:36)
[2023-06-27] MEDS: Sodium Chloride 0.65% 1 SPRAY SPRAY.BTL 2 SPRAY NASAL (05:47)
[2023-06-27] MEDS: Levothyroxine 50 MCG Tablet PO (05:47)
[2023-06-27 06:00] VITALS: BMI 20.8
[2023-06-27 06:38] LABS: International Normalized Ratio 2.1
[2023-06-27 06:57] LABS: Anion Gap 5 (5-15); BUN 42 mg/dL (7-18); BUN/Creat Ratio 23.9 RATIO (10-20); Calcium,Total 8.1 mg/dL (8.5-10.1); Chloride 114 mmol/L (98-107); Creatinine, Serum 1.76 mg/dL (0.70-1.30); EST Glomerular Filtration Rate 40 mL/min (>60); Est Glom Filt Rate - Afr Amer 48 mL/min (>60); Estimated Creatinine Clearance 28.47 ml/min; Glucose 88 mg/dL (74-106); Potassium 4.1 mmol/L (3.5-5.1); Sodium Level 142 mmol/L (136-145)
[2023-06-27 08:10] VITALS: BP 148/95; PULSE 103; RESP 17; TEMP 36.5; O2SAT 94
[2023-06-27] MEDS: Multivitamins,Therapeutic Tablet 1 TABLET PO (08:16)
[2023-06-27] MEDS: Sucralfate 1 GM Tablet PO ×3 (08:16→16:46)
[2023-06-27] MEDS: Ascorbic Acid 500 MG Tablet PO (08:16)
[2023-06-27] MEDS: Vitamin B Comp W-C Capsule 1 CAP PO ×2 (08:16→19:49)
[2023-06-27] MEDS: Cholecalciferol (VIT D3) 25 MCG TABLET (1,000 UNITS) PO (08:16)
[2023-06-27] MEDS: Lidocaine 5% Patch 1 PATCH TOPICAL (08:17)
[2023-06-27] MEDS: Famotidine 20 MG Tablet 40 MG PO (08:17)
[2023-06-27] MEDS: Amiodarone 200 MG Tablet 100 MG PO ×2 (08:17→19:49)
[2023-06-27] MEDS: Finasteride 5 MG Tablet PO (08:18)
--- NOTE | 2023-06-27 10:57 | NURSING ---
Ultrasound of kidney and bladder canceled at this time by Dr. Samuel. Patient had done approx 2 weeks prior.
--- NOTE | 2023-06-27 11:01 | NURSING ---
Offered covid vaccine, education about vaccine provided. Patient refuses at this time.
[2023-06-27] MEDS: 0.9% Saline Lock 10 ML Syringe IV (11:48)
[2023-06-27] MEDS: 0.9% Normal Saline (1000mL) 1,000 ML 60 ML IV (11:48)
[2023-06-27] MEDS: Acetaminophen 500 MG Tablet 1000 MG PO ×2 (13:02→19:52)
[2023-06-27] MEDS: MENTHOL 226.8 GM JAR 1 APPLIC TOPICAL (13:04)
[2023-06-27] MEDS: Ensure Plus High Protein 120 ML LIQUID PO (16:45)
[2023-06-27] MEDS: Lactulose 20 GM/30 ML UDC 10 GM PO (19:41)
[2023-06-27] MEDS: Tamsulosin HCl 0.4 MG Capsule PO (19:49)
[2023-06-27] MEDS: MELATONIN 10 MG TABLET PO (19:49)
[2023-06-27 20:38] VITALS: PULSE 92; RESP 16; O2SAT 95
[2023-06-28] MEDS: 0.9% Normal Saline (1000mL) 1,000 ML 60 ML IV (04:39)
[2023-06-28] MEDS: Levothyroxine 50 MCG Tablet PO (04:43)
[2023-06-28 06:00] VITALS: BMI 21.3
[2023-06-28] MEDS: Acetaminophen 500 MG Tablet 1000 MG PO ×3 (06:16→20:25)
[2023-06-28] MEDS: Sucralfate 1 GM Tablet PO ×3 (06:17→16:57)
[2023-06-28 06:32] LABS: Anion Gap 5 (5-15); BUN 39 mg/dL (7-18); BUN/Creat Ratio 24.5 RATIO (10-20); Chloride 114 mmol/L (98-107); Creatinine, Serum 1.59 mg/dL (0.70-1.30); EST Glomerular Filtration Rate 45 mL/min (>60); Est Glom Filt Rate - Afr Amer 54 mL/min (>60); Estimated Creatinine Clearance 31.48 ml/min; Glucose 82 mg/dL (74-106); Potassium 3.8 mmol/L (3.5-5.1); Sodium Level 141 mmol/L (136-145)
[2023-06-28 06:42] VITALS: PULSE 105; RESP 16; O2SAT 94
--- NOTE | 2023-06-28 07:25 | PCM.CONS.U ---
Assessment & Plan Assessment/Plan (1) BPH (benign prostatic hyperplasia): PLAN: 83 yo male with BPH stable on flomax for now reports voiding on his own follow up as an outpatient after discharge call me with any changes or concerns. HPI Consult Data Date of Consult: 06/28/23 HPI Narrative Reason for Consultation: BPH HPI Narrative: RICHIE HANSEN, is a 83 M who presents for rehab currently on flomax reports that urinating okay, c/o mostly of freq BM denies gross hematuria, denies h/o prostate ca PFS Medical History (Updated 06/22/23 @ 00:03 by Background Daemon) Acute constipation Acute exacerbation of chronic low back pain Acute gastrointestinal bleeding Acute kidney injury superimposed on chronic kidney disease Ambulates with cane Anemia Arthritis Atherosclerotic heart disease of [place] coronary artery without angina pectoris Atrial fibrillation Atypical atrial flutter (12/2020) Back pain Benign prostatic hyperplasia BPH (benign prostatic hyperplasia) Cancer Cardiology follow-up encounter Chronic anemia Chronic heart failure with preserved ejection fraction (HFpEF) Chronic kidney disease Chronic renal insufficiency Colitis CPAP (continuous positive airway pressure) dependence Debility Diarrhea Difficulty chewing Dysphagia Easy bruising Elevated LFTs Elevated liver enzymes Essential (primary) hypertension Excessive bleeding Gastric reflux GI bleed (2012) Hiatal hernia High cholesterol History of colon polyps History of diverticulitis History of echocardiogram History of edema History of heart attack History of hyperthyroidism History of leukemia History of pain when walking History of renal disease History of stress test HLD (hyperlipidemia) Hypothyroidism Kidney disease Kidney stones Myocardial infarct Nausea and vomiting Non-rheumatic tricuspid valve insufficiency Non-smoker Nonrheumatic mitral (valve) insufficiency 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 Osteoarthritis Paroxysmal atrial fibrillation Secondary pulmonary arterial hypertension Sleep apnea Sleep apnea Stage 3b chronic kidney disease Thoracic aortic aneurysm (TAA) Thyroid disease Wears glasses Home Medications denosumab 60 mg/mL subcutaneous syringe (Prolia) 60 mg SQ .T3QEAEOX BONES 12/09/20 [History Last Taken 11/10/22] tamsulosin 0.4 mg capsule 0.4 mg PO QHS bladder 11/18/21 [History Last Taken 06/20/23] levothyroxine 25 mcg tablet 50 mcg PO DAILY thyroid 02/17/22 [History Last Taken 06/21/23] coenzyme Q10 100 mg capsule (Co Q-10) 100 mg PO DAILY supplement 05/01/22 [History Last Taken 02/12/23] vitamin B complex 1 cap PO BID supplement 05/01/22 [History Last Taken 02/12/23] acetaminophen 500 mg capsule 1,000 mg PO Q6H PRN Pain 06/15/22 [History Last Taken Unknown] linaclotide 72 mcg capsule (Linzess) 72 mcg PO DAILY PRN Diarrhea 06/15/22 [History Last Taken Unknown] ascorbic acid (vitamin C) 500 mg tablet 500 mg PO DAILY supplement 07/20/22 [History Last Taken 06/21/23] finasteride 5 mg tablet 5 mg PO DAILY prostate 08/05/22 [History Last Taken 06/21/23] multivitamin 1 tab PO DAILY supplement 08/16/22 [History Last Taken 02/12/23] furosemide 40 mg tablet 40 mg PO BID PRN Weight Gain 11/25/22 [History Last Taken Unknown] diltiazem HCl 120 mg capsule,extended release 24 hr 120 mg PO BID heart #60 caps 11/30/22 [Rx Last Taken 02/12/23] cholecalciferol (vitamin D3) 25 mcg (1,000 unit) capsule (Vitamin D3) 1,000 unit PO DAILY supplement 02/19/23 [History Last Taken Unknown] isosorbide mononitrate 30 mg tablet,extended release 24 hr 30 mg PO BID heart 02/19/23 [History Last Taken Unknown] polyethylene glycol 3350 17 gram oral powder packet 17 g PO DAILY constipation 02/19/23 [History Last Taken Unknown] vitamin A 7,500 mcg (25,000 unit) capsule 25,000 unit PO DAILY supplement 02/19/23 [History Last Taken Unknown] amiodarone 100 mg tablet 100 mg PO BID heart 02/21/23 [History Last Taken 06/21/23] vmucfu-hlyjaztx-dokschi 36,000-114,000-180,000 unit capsule,delay rel (Creon) See Rx Instructions PO .COMPLEX digestion 02/21/23 [History Last Taken Unknown] ondansetron 4 mg disintegrating tablet 4 mg PO Q8H PRN PRN Nausea And Vomiting 30 days #90 tabs 03/21/23 [Rx Last Taken Unknown] pantoprazole 40 mg tablet,delayed release 40 mg PO DAILY stomach 30 days #30 tabs 03/21/23 [Rx Last Taken 06/21/23] sucralfate 1 gram tablet 1 g PO TID@0700,1100,1600 stomach 30 days #90 tabs 03/21/23 [Rx Last Taken 06/21/23] famotidine 40 mg tablet 40 mg PO DAILY stomach #30 tabs 04/11/23 [Rx Last Taken Unknown] lidocaine 5 % topical patch 1 patch topical DAILY pain 05/05/23 [History Last Taken Unknown] magnesium citrate 300 ml PO DAILY PRN constipation #296 mL 05/07/23 [Rx Last Taken Unknown] lactulose 10 gram/15 mL oral solution 10 g (15 mL) PO DAILY constipation 30 days #450 mL 05/18/23 [Rx Last Taken Unknown] warfarin 2 mg tablet See Rx Instructions PO .COMPLEX blood thinner #90 tabs 05/27/23 [Rx Last Taken Unknown] loratadine 10 mg tablet (Claritin) 10 mg PO DAILY allergies 06/16/23 [History Last Taken Unknown] metoprolol tartrate 25 mg tablet 25 mg PO BID heart #180 tabs 06/20/23 [Rx Last Taken Unknown] warfarin 3 mg tablet (Jantoven) 3 mg PO SuTuThSa@1700 blood thinner #0 tabs 06/21/23 [Rx Last Taken 06/19/23] warfarin 4 mg tablet See Rx Instructions .Route .COMPLEX blood thinner #60 tabs 06/21/23 [Rx Last Taken 06/20/23] Allergy/AdvReac Type Severity Reaction Status Date / Time diclofenac Allergy rash Verified 06/16/23 10:29 prednisone Allergy Rash Verified 06/16/23 10:29 Family History Father Cancer Prostate cancer Mother Hypertension Sister Hypertension Surgical History ([facility] 06/22/23 @ 00:[facility] History of back surgery History of back surgery History of cardiac catheterization History of cardioversion (06/18/19) History of coronary artery stent placement (08/04/00) History of electrophysiologic study (08/08/00) History of esophagogastroduodenoscopy (EGD) History of hemorrhoidectomy History of hernia repair History of left heart catheterization (07/17/12) History of Zenaida fundoplication History of radiofrequency ablation procedure for cardiac arrhythmia (11/11/11) Social History household members: none Smoking Status: Never smoker alcohol intake: never substance use type: does not use caffeine: No Physical Exam Const alert and oriented x3 General Appearance: cooperative HEENT normocephalic, head/scalp atraumatic, EAC's normal and TM's normal bilaterally Eyes PERRL and EOMs intact bilaterally Pupil: sluggish Neck no lymphadenopathy, supple and no JVD General: trachea midline Lymph Lymphatic: no lymphadenopathy noted, lymphedema and lymphadenopathy Resp normal respiratory effort, normal air movement and clear to auscultation bilaterally Cardio regular rate, regular rhythm and peripheral pulses 2+ throughout GI soft to palpation, non-tender and non-distended Extremity normal capillary refill and no clubbing, cyanosis or edema General Extremity: no tenderness to palpation of joints or extremities Skin no rashes or lesions noted General Skin Exam: turgor normal Lesions: no lesions Rashes: no rashes Neuro CN's II-XII intact bilaterally Speech: speech normal Motor Exam: strength 5/5 throughout; Negative for general weakness Psych thought process normal, cooperative and affect normal Appearance: appropriate Medical Records Data Attestation: I reviewed the patient's medical records Lab / Micro Data 06/22/23 05:39 06/28/23 05:29 Labs: Laboratory Results - last 24 hr 06/28/23 05:29: Sodium 141, Potassium 3.8, Chloride 114 H, Carbon Dioxide 22.0, Anion Gap 5, BUN 39 H, Creatinine 1.59 H, Estim Creat Clear Calc 31.48, Est GFR (MDRD) Af Amer 54 L, Est GFR (MDRD) Non-Af 45 L, BUN/Creatinine Ratio 24.5 H, Glucose 82, Calcium 8.0 L
[2023-06-28 08:26] VITALS: BP 117/78; PULSE 96; RESP 16; TEMP 36.5; O2SAT 98
[2023-06-28] MEDS: Lidocaine 5% Patch 1 PATCH TOPICAL (08:31)
[2023-06-28] MEDS: Vitamin B Comp W-C Capsule 1 CAP PO ×2 (08:34→20:25)
[2023-06-28] MEDS: Ascorbic Acid 500 MG Tablet PO (08:34)
[2023-06-28] MEDS: Multivitamins,Therapeutic Tablet 1 TABLET PO (08:34)
[2023-06-28] MEDS: Amiodarone 200 MG Tablet 100 MG PO ×2 (08:35→20:24)
[2023-06-28] MEDS: Cholecalciferol (VIT D3) 25 MCG TABLET (1,000 UNITS) PO (08:36)
[2023-06-28] MEDS: Famotidine 20 MG Tablet 40 MG PO (08:37)
[2023-06-28] MEDS: Finasteride 5 MG Tablet PO (08:37)
[2023-06-28 10:03] VITALS: BMI 21.3
[2023-06-28] MEDS: 0.9% Saline Lock 10 ML Syringe IV (10:23)
[2023-06-28] MEDS: Polyethylene Glycol 3350 17 GM PACKET PO (10:25)
--- NOTE | 2023-06-28 11:12 | CON.PCM.RE_ITS ---
Assessment & Plan Assessment/Plan (1) FE (acute kidney injury): (2) Chronic kidney disease, stage 3b: PLAN: Plan This is a pleasant 83-year-old male with past medical history significant for COPD, hypertension, hyperlipidemia, hypothyroidism, heart failure preserved EF, ALVARADO on CPAP, CKD who presented to the emergency room on June 16 with complaints of diarrhea, emesis and intractable nausea, patient was admitted for viral gastroenteritis and FE. Patient is now in TCU for therapy. Nephrology consulted as patient has history of CKD. Patient has history of chronic kidney disease stage III with baseline creatinine ranging around 1.6 to 1.8 mg/dL. On admission to the hospital patient's creatinine was 4.33 mg/dL (this was peak) and daily renal function improved with IV fluids and holding diuretics. IV fluids were stopped today. Serum creatinine is 1.59. Overall volume status appears near euvolemic. Patient is nonoliguric. Patient did have gallbladder ultrasound no hydronephrosis right kidney. Recommend continue holding diuretic for now. At home patient was taking Lasix as needed for swelling. Blood pressures acceptable. Urology consulted as patient has history of BPH currently on Flomax. Will arrange for hospital follow-up at time of discharge. Further orders forthcoming as hospitalization evolves, thank you for allowing us to participate in the care of Mr. Mckeon. HPI Consult Data Date of Consult: 06/28/23 HPI Narrative HPI Narrative: RICHIE MCKEON, is a 83 M with past medical history significant for COPD, hypertension, hyperlipidemia, hypothyroidism, heart failure preserved EF, ALVARADO on CPAP, CKD who presented to the emergency room on June 16 with complaints of diarrhea, emesis and intractable nausea, patient was admitted for intractable nausea, emesis, diarrhea and FE. Overall patient improved and was transferred to TCU. We were consulted as patient has history of CKD. He is followed by Dr. Gudino. Baseline creatinine ranging around 1.6-1.8. Today patient reports appetite is good. Denies any nausea, vomiting or diarrhea. Denies any edema. [facility] Medical History (Updated 06/22/23 @ 00:03 by Background Daemon) Acute constipation Acute exacerbation of chronic low back pain Acute gastrointestinal bleeding Acute kidney injury superimposed on chronic kidney disease Ambulates with cane Anemia Arthritis Atherosclerotic heart disease of [place] coronary artery without angina pectoris Atrial fibrillation Atypical atrial flutter (12/2020) Back pain Benign prostatic hyperplasia BPH (benign prostatic hyperplasia) Cancer Cardiology follow-up encounter Chronic anemia Chronic heart failure with preserved ejection fraction (HFpEF) Chronic kidney disease Chronic renal insufficiency Colitis CPAP (continuous positive airway pressure) dependence Debility Diarrhea Difficulty chewing Dysphagia Easy bruising Elevated LFTs Elevated liver enzymes Essential (primary) hypertension Excessive bleeding Gastric reflux GI bleed (2012) Hiatal hernia High cholesterol History of colon polyps History of diverticulitis History of echocardiogram History of edema History of heart attack History of hyperthyroidism History of leukemia History of pain when walking History of renal disease History of stress test HLD (hyperlipidemia) Hypothyroidism Kidney disease Kidney stones Myocardial infarct Nausea and vomiting Non-rheumatic tricuspid valve insufficiency Non-smoker Nonrheumatic mitral (valve) insufficiency 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 Osteoarthritis Paroxysmal atrial fibrillation Secondary pulmonary arterial hypertension Sleep apnea Sleep apnea Stage 3b chronic kidney disease Thoracic aortic aneurysm (TAA) Thyroid disease Wears glasses Home Medications denosumab 60 mg/mL subcutaneous syringe (Prolia) 60 mg SQ .[id number] BONES 12/09/20 [History Last Taken 11/10/22] tamsulosin 0.4 mg capsule 0.4 mg PO QHS bladder 11/18/21 [History Last Taken 06/20/23] levothyroxine 25 mcg tablet 50 mcg PO DAILY thyroid 02/17/22 [History Last Taken 06/21/23] coenzyme Q10 100 mg capsule (Co Q-10) 100 mg PO DAILY supplement 05/01/22 [History Last Taken 02/12/23] vitamin B complex 1 cap PO BID supplement 05/01/22 [History Last Taken 02/12/23] acetaminophen 500 mg capsule 1,000 mg PO Q6H PRN Pain 06/15/22 [History Last Taken Unknown] linaclotide 72 mcg capsule (Linzess) 72 mcg PO DAILY PRN Diarrhea 06/15/22 [History Last Taken Unknown] ascorbic acid (vitamin C) 500 mg tablet 500 mg PO DAILY supplement 07/20/22 [History Last Taken 06/21/23] finasteride 5 mg tablet 5 mg PO DAILY prostate 08/05/22 [History Last Taken 06/21/23] multivitamin 1 tab PO DAILY supplement 08/16/22 [History Last Taken 02/12/23] furosemide 40 mg tablet 40 mg PO BID PRN Weight Gain 11/25/22 [History Last Taken Unknown] diltiazem HCl 120 mg capsule,extended release 24 hr 120 mg PO BID heart #60 caps 11/30/22 [Rx Last Taken 02/12/23] cholecalciferol (vitamin D3) 25 mcg (1,000 unit) capsule (Vitamin D3) 1,000 unit PO DAILY supplement 02/19/23 [History Last Taken Unknown] isosorbide mononitrate 30 mg tablet,extended release 24 hr 30 mg PO BID heart 02/19/23 [History Last Taken Unknown] polyethylene glycol 3350 17 gram oral powder packet 17 g PO DAILY constipation 02/19/23 [History Last Taken Unknown] vitamin A 7,500 mcg (25,000 unit) capsule 25,000 unit PO DAILY supplement 02/19/23 [History Last Taken Unknown] amiodarone 100 mg tablet 100 mg PO BID heart 02/21/23 [History Last Taken 06/21/23] mjdneq-epuqimje-svmnjhj 36,000-114,000-180,000 unit capsule,delay rel (Creon) See Rx Instructions PO .COMPLEX digestion 02/21/23 [History Last Taken Unknown] ondansetron 4 mg disintegrating tablet 4 mg PO Q8H PRN PRN Nausea And Vomiting 30 days #90 tabs 03/21/23 [Rx Last Taken Unknown] pantoprazole 40 mg tablet,delayed release 40 mg PO DAILY stomach 30 days #30 tabs 03/21/23 [Rx Last Taken 06/21/23] sucralfate 1 gram tablet 1 g PO TID@0700,1100,1600 stomach 30 days #90 tabs 03/21/23 [Rx Last Taken 06/21/23] famotidine 40 mg tablet 40 mg PO DAILY stomach #30 tabs 04/11/23 [Rx Last Taken Unknown] lidocaine 5 % topical patch 1 patch topical DAILY pain 05/05/23 [History Last Taken Unknown] magnesium citrate 300 ml PO DAILY PRN constipation #296 mL 05/07/23 [Rx Last Taken Unknown] lactulose 10 gram/15 mL oral solution 10 g (15 mL) PO DAILY constipation 30 days #450 mL 05/18/23 [Rx Last Taken Unknown] warfarin 2 mg tablet See Rx Instructions PO .COMPLEX blood thinner #90 tabs 05/27/23 [Rx Last Taken Unknown] loratadine 10 mg tablet (Claritin) 10 mg PO DAILY allergies 06/16/23 [History Last Taken Unknown] metoprolol tartrate 25 mg tablet 25 mg PO BID heart #180 tabs 06/20/23 [Rx Last Taken Unknown] warfarin 3 mg tablet (Jantoven) 3 mg PO SuTuThSa@1700 blood thinner #0 tabs 06/21/23 [Rx Last Taken 06/19/23] warfarin 4 mg tablet See Rx Instructions .Route .COMPLEX blood thinner #60 tabs 06/21/23 [Rx Last Taken 06/20/23] Allergy/AdvReac Type Severity Reaction Status Date / Time diclofenac Allergy rash Verified 06/16/23 10:29 prednisone Allergy Rash Verified 06/16/23 10:29 Family History Father Cancer Prostate cancer Mother Hypertension Sister Hypertension Surgical History (Updated 06/22/23 @ 00:03 by Background Daemmanuelito) History of back surgery History of back surgery History of cardiac catheterization History of cardioversion (06/18/19) History of coronary artery stent placement (08/04/00) History of electrophysiologic study (08/08/00) History of esophagogastroduodenoscopy (EGD) History of hemorrhoidectomy History of hernia repair History of left heart catheterization (07/17/12) History of Zenaida fundoplication History of radiofrequency ablation procedure for cardiac arrhythmia (11/11/11) Social History household members: none Smoking Status: Never smoker alcohol intake: never substance use type: does not use caffeine: No ROS ROS Narrative As in HPI and past medical history Physical Exam Narrative Alert and oriented x3, no apparent distress S1, S2, RRR Lung sounds clear anteriorly and posteriorly. No wheezes, rhonchi rales Abdomen soft, nontender No edema Lab / Micro Data 06/22/23 05:39 06/28/23 05:29 Labs: Laboratory Results - last 24 hr 06/28/23 05:29: Sodium 141, Potassium 3.8, Chloride 114 H, Carbon Dioxide 22.0, Anion Gap 5, BUN 39 H, Creatinine 1.59 H, Estim Creat Clear Calc 31.48, Est GFR (MDRD) Af Amer 54 L, Est GFR (MDRD) Non-Af 45 L, BUN/Creatinine Ratio 24.5 H, Glucose 82, Calcium 8.0 L
--- NOTE | 2023-06-28 12:34 | CASEMGMT ---
Social Work BIMS () and PHQ-2 () completed for MDS assessment. Roya Sarabia MSW PLUSH WEAVER
--- NOTE | 2023-06-28 13:17 | CASEMGMT ---
Social Work IDT met with patient and sister for care plan meeting. Discussed patient's progress in PT/OT/SN. Educated to Medicare benefit and copay coverage. Pt is adlib and progressing well, but wants to focus on strengthening knees and bending down/taking care of small dog at home. SW offered to follow up on progress on Tuesday and then set DC date for next week. Pt agreeable. SW will continue to follow for DC planning. Roya Sarabia, GRAIN DRIER OPERATOR CURRICULUM AND INSTRUCTION SPECIALIST
[2023-06-28] MEDS: Ensure Plus High Protein 120 ML LIQUID PO ×2 (14:40→18:25)
[2023-06-28] MEDS: MELATONIN 10 MG TABLET PO (20:25)
[2023-06-28] MEDS: Tamsulosin HCl 0.4 MG Capsule PO (20:25)
[2023-06-28] MEDS: Mag Hydrox/Al Hydrox/Simeth 30 ML UDC PO (22:51)
[2023-06-28] MEDS: MENTHOL 226.8 GM JAR 1 APPLIC TOPICAL (22:54)
[2023-06-29] MEDS: Levothyroxine 50 MCG Tablet PO (04:09)
[2023-06-29] MEDS: Sodium Chloride 0.65% 1 SPRAY SPRAY.BTL 2 SPRAY NASAL ×2 (04:10→20:30)
[2023-06-29 05:52] LABS: Absolute Lymphocyte Count 0.77 X10^3/uL (0.83-4.51); Absolute Neutrophil Count 8.7 X10^3/uL (2.0-7.7); Basophil# 0.05 X10^3/uL; Basophil% 0.5 % (0-1); Eosinophil# 0.09 X10^3/uL; Eosinophils% 0.9 % (0-5); Hematocrit 32.5 % (40-54); Hemoglobin 10.7 g/dL (13.0-16.5); Lymphocyte # 0.77 X10^3/ul (0.83-4.51); Lymphocyte % 7.4 % (19-41); Mean Corp Hgb Conc 32.9 g/dL (32-36); Mean Corpuscular Hgb 33.2 pg (27.0-32.0); Mean Corpuscular Volume 100.9 fL (80-94); Mean Platelet Vol. 9.6 fl (6.2-12.0); Monocyte# 0.69 X10^3/uL; Monocyte% 6.7 % (0-10); NRBC Flagged by Analyzer 0 % (0-5); Neutrophil # 8.65 X10^3/uL (2.7-7.7); Neutrophil % 83.6 % (47-70); POSITIVE MORPHOLOGY YES; Platelet Count 232 K/mm3 (150-450); RBC Distribution Width CV 20.6 % (11.6-14.6); RBC Distribution Width SD 72.9 fl (35.1-43.9); Red Blood Count 3.22 M/mm3 (4.6-6.2); White Blood Count 10.3 K/mm3 (4.4-11.0)
[2023-06-29 06:05] LABS: Differential Indicated SCAN CRITERIA MET
[2023-06-29] MEDS: Acetaminophen 500 MG Tablet 1000 MG PO ×2 (06:06→20:27)
[2023-06-29] MEDS: Sucralfate 1 GM Tablet PO ×3 (06:06→15:53)
[2023-06-29 06:14] LABS: Anion Gap 4 (5-15); BUN 36 mg/dL (7-18); BUN/Creat Ratio 24.2 RATIO (10-20); Calcium,Total 8.4 mg/dL (8.5-10.1); Chloride 114 mmol/L (98-107); Creatinine, Serum 1.49 mg/dL (0.70-1.30); EST Glomerular Filtration Rate 48 mL/min (>60); Est Glom Filt Rate - Afr Amer 58 mL/min (>60); Estimated Creatinine Clearance 34.38 ml/min; Glucose 90 mg/dL (74-106); Sodium Level 141 mmol/L (136-145)
[2023-06-29 06:46] LABS: Anisocytosis 2+; Macrocytosis 1+
--- NOTE | 2023-06-29 09:17 | NURSING ---
Physician Recruiter Note; MDS for 06/28/2023 Complete
[2023-06-29] MEDS: Mag Hydrox/Al Hydrox/Simeth 30 ML UDC PO (09:30)
[2023-06-29] MEDS: MENTHOL 226.8 GM JAR 1 APPLIC TOPICAL ×2 (09:30→20:31)
[2023-06-29 09:35] VITALS: BP 145/91; PULSE 94; RESP 16; TEMP 36.6; O2SAT 95
--- NOTE | 2023-06-29 09:44 | NURSING ---
Addendum entered by Jeannie Bonilla 06/29/23 12:42: correction: indigestion. Original Note: PT C/O INGESTION & RT ANKLE/KNEE PAIN FROM ARTHRITIS. OFFERED [facility]. PT ACCEPTED, APPLIED PER ORDER. PT REPORTS FEELING SOB AND SAID HE THOUGHT DR FARNSWORTH WAS GOING TO PUT HIM BACK ON LASIX. HE WAS ATTEMPTING TO CANCEL APPT WITH DR ZHENG TODAY AND I TOLD HIM WE WILL TAKE HIM TO APPT AND MAYBE THEY WILL HAVE INSIGHT ON RESTARTING PT BACK ON LASIX FOR HEART FAILURE. EDEMA NOTED TO BILAT TOPS OF FEET. RESTING IN BED, HOB ELEVATED. REMINDED PT TO KEEP HOB UP TO PREVENT REFLUX. PT VERBALIZED UNDERSTANDING.
[2023-06-29] MEDS: Amiodarone 200 MG Tablet 100 MG PO ×2 (11:39→20:29)
[2023-06-29] MEDS: Famotidine 20 MG Tablet 40 MG PO (11:39)
--- NOTE | 2023-06-29 12:11 | NURSING ---
PT PICKS AND CHOOSES WHEN AND IF HE WANTS TO TAKE HIS MEDS RECENTLY. THIS AM HOLDING OFF ON MEDS PER HIS REQUEST UNTIL HE SEE [facility]. WILL ATTEMPT TO ADMINISTER THEM AGAIN AFTER APPT.
--- NOTE | 2023-06-29 13:20 | NURSING ---
pt off unit to Dr Molina office for appt
[2023-06-29 14:31] VITALS: BMI 20.8
[2023-06-29] MEDS: Lactulose 20 GM/30 ML UDC 10 GM PO (14:34)
[2023-06-29] MEDS: Polyethylene Glycol 3350 17 GM PACKET PO (14:35)
[2023-06-29] MEDS: Finasteride 5 MG Tablet PO (14:35)
[2023-06-29] MEDS: Lidocaine 5% Patch 1 PATCH TOPICAL (14:36)
[2023-06-29] MEDS: Tuberculin,Purif.prot.deriv. 50 TU/ML Vial 0.1 ML ID (14:41)
--- NOTE | 2023-06-29 14:48 | NURSING ---
pt returned from [facility] appt, pt states they ordered labs and changed medications. only order noted BNP. will order in [facility]
[2023-06-29 17:16] LABS: BNP,B-Type NATRIURETIC PEPTIDE 1384.2 pg/mL (0-100)
[2023-06-29] MEDS: traMADol 50 MG Tablet PO (17:24)
[2023-06-29] MEDS: Ensure Plus High Protein 120 ML LIQUID PO (17:27)
[2023-06-29 20:10] VITALS: PULSE 88; RESP 16; O2SAT 97
[2023-06-29] MEDS: MELATONIN 10 MG TABLET PO (20:29)
[2023-06-29] MEDS: Tamsulosin HCl 0.4 MG Capsule PO (20:29)
[2023-06-29] MEDS: Vitamin B Comp W-C Capsule 1 CAP PO (20:30)
[2023-06-29] MEDS: 0.9% Saline Lock 10 ML Syringe IV (20:30)
[2023-06-30] MEDS: Loratadine 10 MG Tablet PO (02:26)
[2023-06-30] MEDS: Levothyroxine 50 MCG Tablet PO (05:30)
[2023-06-30 06:33] LABS: International Normalized Ratio 2.1; Prothrombin Time (Protime)PT. 24.2 SECONDS (11.7-14.9)
[2023-06-30] MEDS: Sucralfate 1 GM Tablet PO ×3 (06:34→15:08)
[2023-06-30] MEDS: Acetaminophen 500 MG Tablet 1000 MG PO ×3 (06:34→21:40)
[2023-06-30] MEDS: Multivitamins,Therapeutic Tablet 1 TABLET PO (09:34)
[2023-06-30] MEDS: Lidocaine 5% Patch 1 PATCH TOPICAL (09:35)
[2023-06-30] MEDS: Polyethylene Glycol 3350 17 GM PACKET PO ×2 (09:35→09:36)
[2023-06-30] MEDS: Famotidine 20 MG Tablet 40 MG PO (09:35)
[2023-06-30] MEDS: Amiodarone 200 MG Tablet 100 MG PO ×2 (09:36→21:39)
[2023-06-30] MEDS: Lactulose 20 GM/30 ML UDC 10 GM PO (09:37)
[2023-06-30] MEDS: Cholecalciferol (VIT D3) 25 MCG TABLET (1,000 UNITS) PO (09:38)
[2023-06-30] MEDS: Ascorbic Acid 500 MG Tablet PO (09:38)
[2023-06-30] MEDS: Finasteride 5 MG Tablet PO (09:38)
[2023-06-30] MEDS: Vitamin B Comp W-C Capsule 1 CAP PO ×2 (09:38→21:41)
[2023-06-30] MEDS: Sodium Chloride 0.65% 1 SPRAY SPRAY.BTL 2 SPRAY NASAL (09:53)
[2023-06-30] MEDS: traMADol 50 MG Tablet PO (09:56)
[2023-06-30 13:57] VITALS: BP 158/88; PULSE 120; RESP 18; TEMP 36.2; O2SAT 93
[2023-06-30] MEDS: Ondansetron ODT 4 MG Tablet PO (14:12)
--- NOTE | 2023-06-30 15:00 | NURSING ---
pt reports feeling better. hr now 86, pox 96. nausea improved
--- NOTE | 2023-06-30 15:17 | NURSING ---
drsg to rt wrist changed. area cleansed w/soap and water, adaptic placed and wrapped w/gauze.
--- NOTE | 2023-06-30 16:40 | CASEMGMT ---
Social Work Therapy reported to this worker that pt refused morning sessions and having anxiety, SOB, chest pain. SW met with pt to follow up on symptoms, mood and offer support. Pt in bed and explained symptoms. Pt appeared in no distress. SW inquired about mood and anxiety, readiness to DC home. Pt denied setting DC date, wanting to improve medically and with strength in his knees. Pt denied medical symptoms being anxiety. SW empathized with feelings. Provided emotional support. Offered ongoing supportive visits if needed. Pt appreciative and requested to get sleep today since he struggled to sleep last night. Roya Sarabia, PRESS ASSISTANT AND FEEDER SPLIT LEATHER DEPARTMENT SUPERVISOR
[2023-06-30] MEDS: 0.9% Saline Lock 10 ML Syringe IV (17:05)
--- NOTE | 2023-06-30 18:25 | NURSING ---
Addendum entered by Grecia Bai 06/30/23 18:30: fine crackles post Original Note: pt c\o feeling odd weak little sob. hr [id number], pox on ra 85-88%. o2@2l applied. dr hess notified and new orders received. pt aware.
--- NOTE | 2023-06-30 18:40 | RAD_ITS ---
STUDY: X-RAY CHEST REASON FOR EXAM: Male, 83 years old. sob TECHNIQUE: PA and lateral views of the chest. COMPARISON: 03/17/2023 FINDINGS: The lungs are clear and expanded. There is no demonstrated pleural abnormality. There is moderate cardiac enlargement. Normal mediastinum and nasrin. Normal visualized pulmonary arteries. There is atherosclerotic tortuosity of the aortic arch and descending thoracic aorta. 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 Normal visualized ribs, clavicles, and shoulders. There is no demonstrated abnormality of the visualized soft tissue structures of the upper abdomen. RAD/Chest PA and Lateral IMPRESSION: No active disease. Electronically Signed: Balbir Chicas MD at 18:52 EDT ,
[2023-06-30] MEDS: Furosemide 40 MG Tablet PO (18:53)
--- NOTE | 2023-06-30 18:56 | NURSING ---
pt back to room from xray. lasix just now available and given. was going to give metoprolol now but it is not available yet. pt reminded to call for assistance before getting up d/t his c/o dizziness, pt reports understanding
[2023-06-30] MEDS: MELATONIN 10 MG TABLET PO (21:40)
[2023-06-30] MEDS: Tamsulosin HCl 0.4 MG Capsule PO (21:40)
[2023-06-30 21:41] VITALS: BP 123/83; PULSE 86
[2023-06-30] MEDS: Metoprolol Tartrate 25 MG Tablet 12.5 MG PO (21:41)
[2023-07-01] MEDS: 0.9% Saline Lock 10 ML Syringe IV (05:49)
[2023-07-01] MEDS: Sucralfate 1 GM Tablet PO ×2 (05:50→16:27)
[2023-07-01] MEDS: Acetaminophen 500 MG Tablet 1000 MG PO ×3 (05:50→21:42)
[2023-07-01] MEDS: Levothyroxine 50 MCG Tablet PO (05:51)
[2023-07-01 06:00] VITALS: BMI 20.3
[2023-07-01 09:31] VITALS: BP 119/68; PULSE 77; RESP 17; TEMP 36.2; O2SAT 96
[2023-07-01] MEDS: Vitamin B Comp W-C Capsule 1 CAP PO ×2 (09:33→21:43)
[2023-07-01] MEDS: Cholecalciferol (VIT D3) 25 MCG TABLET (1,000 UNITS) PO (09:33)
[2023-07-01] MEDS: Ascorbic Acid 500 MG Tablet PO (09:33)
[2023-07-01] MEDS: Multivitamins,Therapeutic Tablet 1 TABLET PO (09:33)
[2023-07-01 09:34] VITALS: PULSE 77
[2023-07-01] MEDS: Metoprolol Tartrate 25 MG Tablet 12.5 MG PO ×2 (09:34→21:42)
[2023-07-01] MEDS: Amiodarone 200 MG Tablet 100 MG PO ×2 (09:34→21:43)
[2023-07-01] MEDS: Lidocaine 5% Patch 1 PATCH TOPICAL (09:35)
[2023-07-01] MEDS: Furosemide 40 MG Tablet PO (09:35)
[2023-07-01] MEDS: Famotidine 20 MG Tablet 40 MG PO (09:35)
[2023-07-01] MEDS: Finasteride 5 MG Tablet PO (09:36)
[2023-07-01] MEDS: Ensure Plus High Protein 120 ML LIQUID PO ×3 (09:36→17:55)
[2023-07-01 10:00] VITALS: PULSE 90; RESP 18; O2SAT 96
[2023-07-01 21:42] VITALS: BP 130/84; PULSE 83
[2023-07-01] MEDS: MELATONIN 10 MG TABLET PO (21:42)
[2023-07-01] MEDS: Tamsulosin HCl 0.4 MG Capsule PO (21:43)
[2023-07-01] MEDS: traMADol 50 MG Tablet PO (23:46)
[2023-07-02] VITALS (8 sets, daily range): BP systolic 112–145; BP diastolic 65–95; PULSE 78–125; RESP 17–18; TEMP 36.4; O2SAT 96–97; BMI 20.6
[2023-07-02] MEDS: Mag Hydrox/Al Hydrox/Simeth 30 ML UDC PO (00:29)
[2023-07-02] MEDS: Levothyroxine 50 MCG Tablet PO (06:25)
[2023-07-02] MEDS: Sucralfate 1 GM Tablet PO ×3 (06:25→16:31)
[2023-07-02] MEDS: Acetaminophen 500 MG Tablet 1000 MG PO ×3 (06:25→21:43)
[2023-07-02] MEDS: Ensure Plus High Protein 120 ML LIQUID PO ×3 (09:35→16:35)
[2023-07-02] MEDS: Ascorbic Acid 500 MG Tablet PO (09:36)
[2023-07-02] MEDS: Multivitamins,Therapeutic Tablet 1 TABLET PO (09:36)
[2023-07-02] MEDS: Cholecalciferol (VIT D3) 25 MCG TABLET (1,000 UNITS) PO (09:37)
[2023-07-02] MEDS: Vitamin B Comp W-C Capsule 1 CAP PO ×2 (09:37→21:44)
[2023-07-02] MEDS: Amiodarone 200 MG Tablet 100 MG PO ×2 (09:37→21:43)
[2023-07-02] MEDS: Lactulose 20 GM/30 ML UDC 10 GM PO (09:38)
[2023-07-02] MEDS: Furosemide 40 MG Tablet PO (09:38)
[2023-07-02] MEDS: Metoprolol Tartrate 25 MG Tablet 12.5 MG PO ×2 (09:40→21:44)
[2023-07-02] MEDS: Famotidine 20 MG Tablet 40 MG PO (09:41)
[2023-07-02] MEDS: Finasteride 5 MG Tablet PO (09:42)
[2023-07-02] MEDS: Lidocaine 5% Patch 1 PATCH TOPICAL (09:42)
[2023-07-02] MEDS: Ondansetron ODT 4 MG Tablet PO (09:43)
[2023-07-02 09:46] LABS: Anion Gap 7 (5-15); BUN 40 mg/dL (7-18); BUN/Creat Ratio 20.4 RATIO (10-20); Calcium,Total 7.9 mg/dL (8.5-10.1); Chloride 108 mmol/L (98-107); Creatinine, Serum 1.96 mg/dL (0.70-1.30); EST Glomerular Filtration Rate 35 mL/min (>60); Est Glom Filt Rate - Afr Amer 42 mL/min (>60); Estimated Creatinine Clearance 25.07 ml/min; Glucose 105 mg/dL (74-106); Potassium 3.7 mmol/L (3.5-5.1); Sodium Level 141 mmol/L (136-145)
--- NOTE | 2023-07-02 11:18 | NURSING ---
Addendum entered by Riya Hong 07/02/23 11:25: Dr. Gudino returned the call and stated that he would like the lasix held until he can see the patient. He states that he would stop by today or tomorrow Original Note: I called nephrology and left a message with the answering service regarding the patient's elevated BUN and Creatinine
--- NOTE | 2023-07-02 16:00 | EKG12_ITS ---
Test Reason : Blood Pressure : / mmHG Vent. Rate : 104 BPM Atrial Rate : 277 BPM P-R Int : 000 ms QRS Dur : 104 ms QT Int : 330 ms P-R-T Axes : 000 009 -06 degrees QTc Int : 433 ms Atrial flutter with variable A-V block Nonspecific ST abnormality Abnormal ECG When compared with ECG of 02-JUL-2023 16:15, MANUAL COMPARISON REQUIRED, DATA IS UNCONFIRMED Confirmed by JOSE KASPER, JESSICA ([id number]), makeup editor CIPRIANO GATES ([id number]) on 07/11/2023 11:02:24 AM Referred By: DAJA Confirmed By:CAM GARCIA MD
--- NOTE | 2023-07-02 16:12 | NURSING ---
Pt C/O of Chest Pain stat EKG ordered and showed A Flutter. Dr. Jimmie joyce and N.O. for Nitroglycerin 0.4mg q5min PRN. Order read back.
[2023-07-02] MEDS: Nitroglycerin (INPATIENT USE) 0.4 MG TAB.SUBL SL ×3 (16:15→16:28)
[2023-07-02] MEDS: traMADol 50 MG Tablet PO (16:34)
--- NOTE | 2023-07-02 17:10 | NURSING ---
Patient noted to have tachycardia c/o palpitations and sternal discomfort. EKG was ordered; and nitroglycerin was ordered. x3 doses given patient given 2LNC oxygen for SOB comfort. Patient noted to not feel any improvement. Upon Heart Auscultation patient remains Tachycardia w/ Irregular Rhythm noted. MD notified.
--- NOTE | 2023-07-02 18:08 | NURSING ---
Updated Dr. Samuel on pt still feeling slightly SOB and still having heart palpations x3 doses of nitro given and no long has chest pain. Pt states that these palpations have lasted longer then usual. N.O. received to send pt to E.R. to be evaluated. Report called and pt taken down in wheelchair.
--- NOTE | 2023-07-02 18:17 | NURSING ---
Contacted Jenae on contact list to update them on patient status. Denied any additional questions at this time
--- NOTE | 2023-07-02 21:33 | NURSING ---
Patient returned from ED. No new orders. Will continue to monitor.
[2023-07-02] MEDS: MELATONIN 10 MG TABLET PO (21:43)
[2023-07-02] MEDS: Tamsulosin HCl 0.4 MG Capsule PO (21:44)
[2023-07-03] MEDS: Levothyroxine 50 MCG Tablet PO (05:45)
[2023-07-03] MEDS: Acetaminophen 500 MG Tablet 1000 MG PO ×2 (05:45→21:40)
[2023-07-03 06:14] LABS: Anion Gap 7 (5-15); BUN 40 mg/dL (7-18); BUN/Creat Ratio 20.9 RATIO (10-20); Calcium,Total 8.1 mg/dL (8.5-10.1); Chloride 109 mmol/L (98-107); Creatinine, Serum 1.91 mg/dL (0.70-1.30); EST Glomerular Filtration Rate 36 mL/min (>60); Est Glom Filt Rate - Afr Amer 44 mL/min (>60); Estimated Creatinine Clearance 26.06 ml/min; Glucose 93 mg/dL (74-106); Potassium 3.6 mmol/L (3.5-5.1); Sodium Level 142 mmol/L (136-145)
[2023-07-03] MEDS: Sucralfate 1 GM Tablet PO ×3 (06:35→16:22)
[2023-07-03] MEDS: Multivitamins,Therapeutic Tablet 1 TABLET PO (09:15)
[2023-07-03] MEDS: Finasteride 5 MG Tablet PO (09:16)
[2023-07-03] MEDS: Vitamin B Comp W-C Capsule 1 CAP PO ×2 (09:17→21:43)
[2023-07-03] MEDS: Lactulose 20 GM/30 ML UDC 10 GM PO (09:17)
[2023-07-03] MEDS: Polyethylene Glycol 3350 17 GM PACKET PO (09:17)
[2023-07-03] MEDS: Cholecalciferol (VIT D3) 25 MCG TABLET (1,000 UNITS) PO (09:18)
[2023-07-03] MEDS: Famotidine 20 MG Tablet 40 MG PO (09:18)
[2023-07-03] MEDS: Ascorbic Acid 500 MG Tablet PO (09:19)
[2023-07-03] MEDS: Amiodarone 200 MG Tablet 100 MG PO ×2 (09:19→21:40)
[2023-07-03] MEDS: Ondansetron ODT 4 MG Tablet PO (09:27)
[2023-07-03] MEDS: Lidocaine 5% Patch 1 PATCH TOPICAL (09:31)
[2023-07-03 09:32] VITALS: BP 126/87; PULSE 93
[2023-07-03] MEDS: Metoprolol Tartrate 25 MG Tablet 12.5 MG PO ×2 (09:32→21:40)
[2023-07-03] MEDS: Sodium Chloride 0.65% 1 SPRAY SPRAY.BTL 2 SPRAY NASAL (09:34)
[2023-07-03 09:44] VITALS: RESP 16; TEMP 36.7; O2SAT 94
[2023-07-03] MEDS: Mag Hydrox/Al Hydrox/Simeth 30 ML UDC PO ×2 (11:44→22:44)
[2023-07-03] MEDS: MENTHOL 226.8 GM JAR 1 APPLIC TOPICAL (16:19)
[2023-07-03] MEDS: Ensure Plus High Protein 120 ML LIQUID PO (16:20)
[2023-07-03 21:40] VITALS: BP 141/91; PULSE 98
[2023-07-03] MEDS: Tamsulosin HCl 0.4 MG Capsule PO (21:42)
[2023-07-03] MEDS: MELATONIN 10 MG TABLET PO (21:44)
[2023-07-04] VITALS (7 sets, daily range): BP systolic 120–167; BP diastolic 79–104; PULSE 88–112; RESP 16–17; TEMP 36.4; O2SAT 95–96; BMI 20.7
--- NOTE | 2023-07-04 03:52 | NURSING ---
Patient c/o indigestion at HS, Mylanta was administered and somewhat effective. Patient requested something for indigestion, upset stomach again, given arabella amy at this time. Patient also feeling SOB. SpO2 at 84%, Heart reate irregular between 90 and 110. O2 3L/min applied, bringing SpO2 up. Patient was seen in Dr. Molina's office on 06/29, no new orders at that time. Will continue to monitor.
[2023-07-04 06:08] LABS: International Normalized Ratio 3.8; Prothrombin Time (Protime)PT. 37.7 SECONDS (11.7-14.9)
[2023-07-04] MEDS: Acetaminophen 500 MG Tablet 1000 MG PO ×3 (06:13→20:45)
[2023-07-04] MEDS: Levothyroxine 50 MCG Tablet PO (06:13)
[2023-07-04] MEDS: Sucralfate 1 GM Tablet PO ×3 (06:13→16:53)
[2023-07-04 06:41] LABS: Anion Gap 6 (5-15); BUN 35 mg/dL (7-18); BUN/Creat Ratio 19.9 RATIO (10-20); Calcium,Total 8.2 mg/dL (8.5-10.1); Chloride 109 mmol/L (98-107); Creatinine, Serum 1.76 mg/dL (0.70-1.30); EST Glomerular Filtration Rate 40 mL/min (>60); Est Glom Filt Rate - Afr Amer 48 mL/min (>60); Estimated Creatinine Clearance 28.28 ml/min; Glucose 94 mg/dL (74-106); Potassium 3.8 mmol/L (3.5-5.1); Sodium Level 141 mmol/L (136-145)
[2023-07-04] MEDS: Multivitamins,Therapeutic Tablet 1 TABLET PO (09:14)
[2023-07-04] MEDS: Ascorbic Acid 500 MG Tablet PO (09:14)
[2023-07-04] MEDS: Cholecalciferol (VIT D3) 25 MCG TABLET (1,000 UNITS) PO (09:15)
[2023-07-04] MEDS: Amiodarone 200 MG Tablet 100 MG PO ×2 (09:16→20:45)
[2023-07-04] MEDS: Famotidine 20 MG Tablet 40 MG PO (09:18)
[2023-07-04] MEDS: Polyethylene Glycol 3350 17 GM PACKET PO (09:18)
[2023-07-04] MEDS: Metoprolol Tartrate 25 MG Tablet 12.5 MG PO ×2 (09:18→10:56)
--- NOTE | 2023-07-04 09:18 | EKG12_ITS ---
Test Reason : ARRYTH Blood Pressure : / mmHG Vent. Rate : 099 BPM Atrial Rate : 263 BPM P-R Int : 000 ms QRS Dur : 106 ms QT Int : 390 ms P-R-T Axes : 000 021 -15 degrees QTc Int : 500 ms Atrial flutter with variable A-V block Nonspecific ST abnormality Abnormal ECG When compared with ECG of 16-JUN-2023 12:27, Atrial flutter has replaced Atrial fibrillation ST now depressed in Inferior leads T wave amplitude has decreased in Anterolateral leads Confirmed by JOSE KASPER, JESSICA ([id number]), fashion editor CIPRIANO GATES ([id number]) on 07/11/2023 11:02:11 AM Referred By: To Hernandez Confirmed By:CAM GARCIA MD
[2023-07-04] MEDS: Finasteride 5 MG Tablet PO (09:19)
--- NOTE | 2023-07-04 10:07 | NURSING ---
Discussed patient with Jeannie GARCIA. Patient continues to feel lousy, short of breath, weak. Heart rate very irregular. EKG completed. Spoke with Dr. Samuel, reviewed symptoms, EKG sent to him. He asked if cardiology could see patient. Called cardio office, call back from Krishna SERRANO with orders for increasing metoprolol to 25mg BID, and re-starting lasix 40mg daily. Orders placed. He did mention he believes patient will both of those meds increased in the future but to start with those orders and monitor. Jeannie GARCIA updated.
[2023-07-04] MEDS: Lidocaine 5% Patch 1 PATCH TOPICAL (10:47)
[2023-07-04] MEDS: traMADol 50 MG Tablet PO (10:52)
[2023-07-04] MEDS: Furosemide 40 MG Tablet PO (11:38)
--- NOTE | 2023-07-04 17:54 | NURSING ---
Addendum entered by Jeannie Bonilla 07/04/23 19:05: BP 139/88 HR 40-[address] hess notified, no new orders at this time. Original Note: pt c/o dizziness, SOB while getting up to use BR, BP & HR elevated, dr hess updated, new order to administer metoprolol 25mg now and recheck BP in one hour.
[2023-07-04] MEDS: Metoprolol Tartrate 25 MG Tablet PO ×2 (17:55→20:46)
[2023-07-04] MEDS: MENTHOL 226.8 GM JAR 1 APPLIC TOPICAL (19:09)
[2023-07-04] MEDS: MELATONIN 10 MG TABLET PO (20:45)
[2023-07-04] MEDS: Vitamin B Comp W-C Capsule 1 CAP PO (20:46)
[2023-07-04] MEDS: Tamsulosin HCl 0.4 MG Capsule PO (20:46)
[2023-07-04] MEDS: LORazepam 0.5 MG Tablet PO (23:24)
[2023-07-04] MEDS: Mag Hydrox/Al Hydrox/Simeth 30 ML UDC PO (23:24)
[2023-07-05] VITALS (8 sets, daily range): BP systolic 127–135; BP diastolic 76–83; PULSE 83–112; RESP 26; TEMP 36.7; O2SAT 90–96; BMI 21.6
[2023-07-05] MEDS: Levothyroxine 50 MCG Tablet PO (05:07)
[2023-07-05] MEDS: Acetaminophen 500 MG Tablet 1000 MG PO ×3 (05:07→21:40)
[2023-07-05] MEDS: Mag Hydrox/Al Hydrox/Simeth 30 ML UDC PO (05:37)
--- NOTE | 2023-07-05 06:09 | NURSING ---
Pt calls for help in the bathroom. O2 off. Thinks he feels dizziy. Questioned pt why O2 was not on while in the bathroom. He notes being told that he did not need to wear O2 to the bathroom. SpO2 between 89-90%. HR in the upper 110s per pulse oximeter. O2 reapplied. Resp short, shallow, rapid, and even. In no acute distress. Encouraged to increase intake of water d/t urine elvin and somewhat cloudy. Will continue to monitor.
[2023-07-05] MEDS: Ondansetron ODT 4 MG Tablet PO (09:10)
[2023-07-05] MEDS: LORazepam 0.5 MG Tablet PO ×2 (09:10→17:13)
--- NOTE | 2023-07-05 09:15 | NURSING ---
Nursing entered patient's room. Patient c/o shortness of breath and nausea. Nursing assessed vital signs. SpO2 low. O2 was increased to 5L to achieve SpO2 goal of 92% and greater. Nursing administered PRN Zofran and Ativan as ordered. When reassessed patient SpO2, sats increased to 95%. Nurse decreased O2 to 4L via NC. Patient is maintaining sats of 96%.
[2023-07-05 09:59] LABS: International Normalized Ratio 3.9; Prothrombin Time (Protime)PT. 39.1 SECONDS (11.7-14.9)
[2023-07-05] MEDS: Multivitamins,Therapeutic Tablet 1 TABLET PO (10:15)
[2023-07-05] MEDS: Lidocaine 5% Patch 1 PATCH TOPICAL (10:15)
[2023-07-05] MEDS: Vitamin B Comp W-C Capsule 1 CAP PO ×2 (10:15→21:41)
[2023-07-05] MEDS: Ascorbic Acid 500 MG Tablet PO (10:15)
[2023-07-05] MEDS: Sucralfate 1 GM Tablet PO ×2 (10:15→17:14)
[2023-07-05] MEDS: Furosemide 40 MG Tablet PO (10:15)
[2023-07-05] MEDS: Cholecalciferol (VIT D3) 25 MCG TABLET (1,000 UNITS) PO (10:15)
[2023-07-05] MEDS: Amiodarone 200 MG Tablet 100 MG PO ×2 (10:15→21:41)
[2023-07-05] MEDS: Finasteride 5 MG Tablet PO (10:16)
[2023-07-05] MEDS: Famotidine 20 MG Tablet 40 MG PO (10:16)
[2023-07-05] MEDS: Metoprolol Tartrate 25 MG Tablet PO ×2 (10:21→21:41)
[2023-07-05] MEDS: Ensure Plus High Protein 120 ML LIQUID PO ×2 (13:21→17:14)
--- NOTE | 2023-07-05 18:20 | NURSING ---
Results of patient's CTA of the chest called to Dr. Samuel. New orders for IV ABTs obtained and entered. Discussed patient's elevated INR. Warfarin on HOLD at this time and confirmed daily INR draws.
[2023-07-05] MEDS: 0.9% Saline Lock 10 ML Syringe IV (18:43)
[2023-07-05] MEDS: Ceftriaxone 1 GM/50 ML BAG IV (18:43)
[2023-07-05] MEDS: Azithromycin 500 MG in Dextrose 5%-Water (250mL Bag) 250 ML 250 MG IV (19:39)
[2023-07-05] MEDS: MELATONIN 10 MG TABLET PO (21:40)
[2023-07-05] MEDS: Tamsulosin HCl 0.4 MG Capsule PO (21:41)
[2023-07-06] MEDS: Mag Hydrox/Al Hydrox/Simeth 30 ML UDC PO (01:15)
[2023-07-06 05:58] LABS: Absolute Lymphocyte Count 0.51 X10^3/uL (0.83-4.51); Absolute Neutrophil Count 8.6 X10^3/uL (2.0-7.7); Basophil# 0.04 X10^3/uL; Basophil% 0.4 % (0-1); Eosinophil# 0.06 X10^3/uL; Eosinophils% 0.6 % (0-5); Hematocrit 27.6 % (40-54); Hemoglobin 9.1 g/dL (13.0-16.5); Lymphocyte # 0.51 X10^3/ul (0.83-4.51); Mean Corpuscular Hgb 34.5 pg (27.0-32.0); Mean Corpuscular Volume 104.5 fL (80-94); Mean Platelet Vol. 9.9 fl (6.2-12.0); Monocyte# 0.84 X10^3/uL; Monocyte% 8.3 % (0-10); NRBC Flagged by Analyzer 0 % (0-5); Neutrophil # 8.62 X10^3/uL (2.7-7.7); Neutrophil % 84.9 % (47-70); POSITIVE DIFFERENTIAL YES; POSITIVE MORPHOLOGY YES; Platelet Count 219 K/mm3 (150-450); RBC Distribution Width CV 22.1 % (11.6-14.6); RBC Distribution Width SD 85.4 fl (35.1-43.9); Red Blood Count 2.64 M/mm3 (4.6-6.2); White Blood Count 10.2 K/mm3 (4.4-11.0)
[2023-07-06 06:00] VITALS: BMI 21.6
[2023-07-06] MEDS: Sucralfate 1 GM Tablet PO ×3 (06:04→17:02)
[2023-07-06] MEDS: Levothyroxine 50 MCG Tablet PO (06:04)
[2023-07-06] MEDS: Acetaminophen 500 MG Tablet 1000 MG PO ×3 (06:04→22:05)
[2023-07-06 06:07] LABS: Differential Indicated SCAN CRITERIA MET; International Normalized Ratio 3.7
[2023-07-06 06:19] LABS: Anisocytosis 1+; Differential Comment SCANNED; Hypochromasia 1+; Macrocytosis 1+
[2023-07-06 06:54] VITALS: O2SAT 94
[2023-07-06 07:02] LABS: Anion Gap 4 (5-15); BUN 36 mg/dL (7-18); BUN/Creat Ratio 19.9 RATIO (10-20); Calcium,Total 7.9 mg/dL (8.5-10.1); Chloride 107 mmol/L (98-107); Creatinine, Serum 1.81 mg/dL (0.70-1.30); EST Glomerular Filtration Rate 38 mL/min (>60); Est Glom Filt Rate - Afr Amer 46 mL/min (>60); Estimated Creatinine Clearance 28.67 ml/min; Glucose 98 mg/dL (74-106); Potassium 3.5 mmol/L (3.5-5.1); Sodium Level 139 mmol/L (136-145)
[2023-07-06] MEDS: Ondansetron ODT 4 MG Tablet PO (08:43)
--- NOTE | 2023-07-06 11:35 | CASEMGMT ---
Social Work SW spoke with pt about DC planning. Pt requested to DC over the weekend. SW educated to IV ATB through 07/11 and to monitor for a day to ensure stable. SW broached topic for AL when pt is having tougher days and needs more medical attention, but can remain independent, and can avoid hospitalization. Pt adamantly denied. SW then offered DC 07/13. Pt phoned sister to request transport and sister agreeable. SW inquired about past HHC at [facility] and [facility]. Pt prefers [facility]. Confirmed no DME needs. Pt is currently on O2, which is new. SW to follow for needs at DC. SW phoned referral to [facility] PT/OT/SN/MAGNUS. Plan: DC home alone 07/13, [facility] PT/OT/SN/NAUN BaileyW
[2023-07-06] MEDS: Lidocaine 5% Patch 1 PATCH TOPICAL (11:44)
[2023-07-06 11:45] VITALS: BP 132/85; PULSE 83
[2023-07-06] MEDS: Ensure Plus High Protein 120 ML LIQUID PO ×2 (12:32→17:45)
[2023-07-06] MEDS: Amiodarone 200 MG Tablet 100 MG PO ×2 (12:33→22:03)
[2023-07-06 12:34] VITALS: BP 132/85; PULSE 83
[2023-07-06] MEDS: Metoprolol Tartrate 25 MG Tablet PO ×2 (12:34→22:04)
[2023-07-06] MEDS: Famotidine 20 MG Tablet 40 MG PO (12:35)
[2023-07-06] MEDS: Finasteride 5 MG Tablet PO (12:36)
[2023-07-06 14:17] VITALS: BP 117/71; PULSE 102; RESP 18; TEMP 36.8; O2SAT 94
[2023-07-06] MEDS: MENTHOL 226.8 GM JAR 1 APPLIC TOPICAL (17:01)
[2023-07-06] MEDS: 0.9% Saline Lock 10 ML Syringe IV (17:52)
--- NOTE | 2023-07-06 20:50 | DS.PCM_ITS ---
Providers Date of Admission: 06/21/23 Primary Care Physician: Dr. César Chinchilla MD Consultations 06/27/23 07:45 Consult: Urology Routine Consulting Provider: Vadim Mars Reason for Consult: Urinary retention. EMERGENT Consult: No Notified: Yes Date Notified: 06/27/23 Time Notified: 13:42 Method of Notification: Verbal 06/27/23 08:36 Consult: Nephrology Routine Consulting Provider: Dacia Gudino Reason for Consult: acute kidney injury EMERGENT Consult: No MD Notified: Yes Date Notified: 06/27/23 Time Notified: 13:36 Method of Notification: Verbal Reason For Visit: FE,N/V/D, ELEVATED LFT'S Diagnosis Discharge Diagnosis (1) FE (acute kidney injury): Status: Acute Code(s): N17.9 - Acute kidney failure, unspecified (2) Chronic kidney disease, stage 3b: Status: Acute Code(s): N18.32 - Chronic kidney disease, stage 3b Plan 83 year old male with below past medical history hospitalized for acute kidney injury, dehydration, elevated liver enzymes, hyperkalemia, admitted to TCU with debility, here for rehabilitation, strengthening, prior to discharge home alone. * Debility - PT/OT. * Pain - Tylenol 1000mg q6 prn pain (1-10), Lidoderm patch 1 patch topical daily. * Bowel - Miralax 17gm daily, Lactulose 10gm daily, Magnesium citrate 300ml daily prn. * Adult immunization - Administer pneumonia vaccine, covid19 vaccine, flu vaccine as appropriate. * DVT prophylaxis - on Warfarin. * Atrial fibrillation - Amiodarone 100mg bid, Warfarin 4mg 3 days/week, 3mg 4 days/week, monitor INR. * Vitamin C deficiency - Vitamin C 500mg daily. * Vitamin D deficiency - D3 25mcg daily. * Nutrition - Ensure Plus 120ml tidcm, MVI 1 tablet daily. * GERD - Famotidine 40mg daily, Sucralfate 1gm tid. * BPH - Finasteride 5mg daily, Tamsulosin 0.4mg daily. * Hypothyroidism - Levothyroxine 50mcg daily. * Allergic rhinitis - Loratadine 10mg po q48h. * Nausea - Zofran odt 4mg q8 prn. * Leg cramps - Vitamin B complex daily. Medications at Discharge Home Medications denosumab 60 mg/mL subcutaneous syringe (Prolia) 60 mg SQ .[id number] BONES 12/09/20 tamsulosin 0.4 mg capsule 0.4 mg PO QHS bladder 11/18/21 levothyroxine 25 mcg tablet 50 mcg PO DAILY thyroid 02/17/22 vitamin B complex 1 cap PO BID supplement 05/01/22 linaclotide 72 mcg capsule (Linzess) 72 mcg PO DAILY PRN Diarrhea 06/15/22 ascorbic acid (vitamin C) 500 mg tablet 500 mg PO DAILY supplement 07/20/22 finasteride 5 mg tablet 5 mg PO DAILY prostate 08/05/22 cholecalciferol (vitamin D3) 25 mcg (1,000 unit) capsule (Vitamin D3) 1,000 unit PO DAILY supplement 02/19/23 polyethylene glycol 3350 17 gram oral powder packet 17 g PO DAILY constipation 02/19/23 amiodarone 100 mg tablet 100 mg PO BID heart 02/21/23 sucralfate 1 gram tablet 1 g PO TID@0700,1100,1600 stomach 30 days #90 tabs 03/21/23 famotidine 40 mg tablet 40 mg PO DAILY stomach #30 tabs 04/11/23 lactulose 10 gram/15 mL oral solution 10 g (15 mL) PO DAILY constipation 30 days #450 mL 05/18/23 loratadine 10 mg tablet (Claritin) 10 mg PO DAILY allergies 06/16/23 warfarin 3 mg tablet (Jantoven) 3 mg PO SuTuThSa@1700 blood thinner #0 tabs 06/21/23 warfarin 4 mg tablet See Rx Instructions .Route .COMPLEX blood thinner #60 tabs 06/21/23 acetaminophen 500 mg tablet 1,000 mg (2 x 500 mg) PO Q8 #0 tabs 07/06/23 furosemide 40 mg tablet 40 mg PO DAILY 30 days #30 tabs 07/06/23 metoprolol tartrate 25 mg tablet 25 mg PO BID #0 tabs 07/06/23 Hospital Course Operations None Procedures None Summary of Care Provided Minutes Spent on Discharge: 35 Hospital Course: 83 year old male with below past medical history hospitalized for acute kidney injury, dehydration, elevated liver enzymes, hyperkalemia, admitted to TCU with debility, here for rehabilitation, strengthening, prior to discharge home alone. Nephrology consulted to follow renal function. 07/05/2023 Pneumonia - noted CTA chest, Ceftriaxone 1gm iv q24 x 7 days, Azithromycin 500mg iv q24 x 7 days. Discharge home alone 07/13/2023, [facility] PT/OT/SN/SW. Physical Exam Const alert General Appearance: cooperative HEENT normocephalic Eyes PERRL and EOMs intact bilaterally Neck supple, no JVD and no carotid bruits Resp normal respiratory effort, normal air movement and clear to auscultation bilaterally Cardio regular rate and regular rhythm GI normal to inspection, nondistended, normoactive bowel sounds, non-tender and non-distended Extremity normal capillary refill General Extremity: Negative for edema Skin no rashes or lesions noted General Skin Exam: no breakdown Psych affect normal Appearance: appropriate Weight / BMI Weight Weight: 64.41 kg Body Mass Index (BMI) 21.6 ABG / Lab / Microbiology Data 07/06/23 05:30 07/06/23 05:30 Laboratory: Laboratory Results - last 24 hr 07/06/23 05:30: WBC 10.2, RBC 2.64 L, Hgb 9.1 L, Hct 27.6 L, MCV 104.5 H, MCH 34.5 H, MCHC 33.0, RDW Std Deviation 85.4 H, RDW Coeff of Pablo 22.1 H, Plt Count 219, MPV 9.9, Immature Gran % (Auto) 0.800, Neut % (Auto) 84.9 H, Lymph % (Auto) 5.0 L, [place] % (Auto) 8.3, Eos % (Auto) 0.6, Baso % (Auto) 0.4, Absolute Neuts (auto) 8.6 H, Absolute Lymphs (auto) 0.51 L, Nucleated RBC % 0, Differential Comment SCANNED, Hypochromasia 1+, Anisocytosis 1+, Macrocytosis 1+, PT 37.0 H, INR 3.7, Sodium 139, Potassium 3.5, Chloride 107, Carbon Dioxide 28.0, Anion Gap 4 L, BUN 36 H, Creatinine 1.81 H, Estim Creat Clear Calc 28.67, Est GFR (MDRD) Af Amer 46 L, Est GFR (MDRD) Non-Af 38 L, BUN/Creatinine Ratio 19.9, Glucose 98, Calcium 7.9 L Microbiology: Microbiology 11/07/23 20:10 Mucosa - Nasopharyngeal Respiratory Panel (PCR) - Final 07/05/23 20:00 Nasal Secretion SARS-CoV-2 Antigen (Rapid) - Final 06/29/23 04:10 Nasal Secretion SARS-CoV-2 Antigen (Rapid) - Final 06/26/23 06:00 Nasal Secretion SARS-CoV-2 Antigen (Rapid) - Final 06/23/23 05:16 Nasal Secretion SARS-CoV-2 Antigen (Rapid) - Final D/C Instructions Discharge Diet: No restrictions Discharge Activity: Return to Normal Activity, May Shower and Use Walker Weight Bearing Status: Weight bearing as tolerated Call your doctor if you observe: Fever of 101 or Higher, Inability to urinate, Inability to have a bowel movement, Shortness of breath, Dizziness, Fainting spells, Swelling in the ankles, Chest pain and Uncontrolled pain Additional Instructions: Discharge home alone 07/13/2023, [facility] PT/OT/SN/SW. Please Follow Up With: Tremaine Molina MD Meaningful Use Info Meaningful Use Diagnoses (Choose all that apply): None applicable Discharge Plan Admission Admit Date/Time: 06/21/23 13:26 Primary Reason for Your Visit: Debility. Attending Provider: Marcus Samuel Chi Primary Care Provider: César Chinchilla Consulting Providers: Dacia Gudino; Vadim Mars Instructions Additional Instructions / Restrictions: Discharge home alone 07/13/2023, [facility] PT/OT/SN/SW. Discharge Orders/Prescriptions Prescriptions: New furosemide 40 mg Tablet 40 mg PO DAILY 30 Days Qty: 30 0RF acetaminophen 500 mg Tablet 1,000 mg PO Q8 Qty: 0 0RF metoprolol tartrate 25 mg Tablet 25 mg PO BID Qty: 0 0RF Continued tamsulosin 0.4 mg capsule 0.4 mg PO QHS levothyroxine 25 mcg tablet 50 mcg PO DAILY Patient Comments: take 1 tablet by mouth once daily Linzess 72 mcg capsule 72 mcg PO DAILY PRN (Reason: Diarrhea) Hold Instructions: Resume on 02/22/23. Restart on Discharge from [facility] ascorbic acid (vitamin C) 500 mg tablet 500 mg PO DAILY finasteride 5 mg tablet 5 mg PO DAILY Prolia 60 MG/ML syringe 60 mg SQ .[id number] vitamin B complex Capsule 1 cap PO BID polyethylene glycol 3350 17 gram Powder In Packet 17 g PO DAILY cholecalciferol (vitamin D3) [Vitamin D3] 25 mcg (1,000 unit) Capsule 1,000 unit PO DAILY amiodarone 100 mg tablet 100 mg PO BID sucralfate 1 gram Tablet 1 g PO TID@0700,1100,1600 30 Days Qty: 90 0RF loratadine [Claritin] 10 mg tablet 10 mg PO DAILY warfarin [Jantoven] 3 mg Tablet 3 mg PO SuTuThSa@1700 Qty: 0 0RF warfarin 4 mg tablet See Rx Instructions .Route .COMPLEX Qty: 60 0RF Protocol: Dose Management Condition: Tuesday Dose/Route: 4 mg Instruction: 1 x 4 mg tablet Condition: Tuesday Dose/Route: 4 mg Instruction: 1 x 4 mg tablet Condition: Tuesday Dose/Route: 4 mg Instruction: 1 x 4 mg tablet Condition: Tuesday Dose/Route: 4 mg Instruction: 1 x 4 mg tablet Condition: Dose/Route: 2 mg Instruction: 1 x 2 mg tablet Condition: Tuesday Dose/Route: 2 mg Instruction: 1 x 2 mg tablet Condition: Tuesday Dose/Route: 2 mg Instruction: 1 x 2 mg tablet Protocol Text: Adjustment Start Date: Tuesday06/17/23 INR Value: 1.7 INR Date: 06/17/23 Recheck Date: 06/24/23 Rx Instructions: 4mg Tue, Tue, Tue. 3mg Sun, , , Sat orally; famotidine 40 mg tablet 40 mg PO DAILY Qty: 30 11RF lactulose 10 gram/15 mL solution 10 g PO DAILY 30 Days Qty: 450 0RF Rx Instructions: take once a day and can take up to 2 more times in a day as needed for constipation Discontinued acetaminophen 500 mg capsule 1,000 mg PO Q6H PRN (Reason: Pain) lidocaine 5 % adhesive patch,medicated 1 patch topical DAILY Rx Instructions: leave on most painful area for up to 12 hrs coenzyme Q10 [Co Q-10] 100 mg Capsule 100 mg PO DAILY multivitamin Tablet 1 tab PO DAILY vitamin A 7,500 mcg (25,000 unit) Capsule 25,000 unit PO DAILY isosorbide mononitrate 30 mg tablet extended release 24 hr 30 mg PO BID Hold Instructions: Resume on 06/29/23. Creon 36,000-114,000- 180,000 unit capsule,delayed release(DR/EC) See Rx Instructions PO .COMPLEX Rx Instructions: take 1-2 with snacks and 2-3 with meals pantoprazole 40 mg Tablet,Delayed Release (Dr/Ec) 40 mg PO DAILY 30 Days Qty: 30 0RF ondansetron 4 mg Tablet,Disintegrating 4 mg PO Q8H PRN PRN (Reason: Nausea And Vomiting) 30 Days Qty: 90 0RF magnesium citrate Solution 300 ml PO DAILY PRN (Reason: constipation) Qty: 296 0RF Rx Instructions: Drink half the bottle. If no significant stool results within 3 hours, drink the remainder of the bottle. furosemide 40 mg tablet 40 mg PO BID PRN (Reason: Weight Gain) Hold Instructions: Resume on 06/29/23. Rx Instructions: as needed for weight gain of 3# in one day diltiazem HCl 120 mg capsule,extended release 24hr 120 mg PO BID Qty: 60 11RF Hold Instructions: Resume on 06/29/23. warfarin 2 mg tablet See Rx Instructions PO .COMPLEX Qty: 90 3RF Protocol: Dose Management Condition: Tuesday Dose/Route: 4 mg Instruction: 1 x 4 mg tablet Condition: Tuesday Dose/Route: 4 mg Instruction: 1 x 4 mg tablet Condition: Tuesday Dose/Route: 4 mg Instruction: 1 x 4 mg tablet Condition: Tuesday Dose/Route: 4 mg Instruction: 1 x 4 mg tablet Condition: Dose/Route: 2 mg Instruction: 1 x 2 mg tablet Condition: Tuesday Dose/Route: 2 mg Instruction: 1 x 2 mg tablet Condition: Tuesday Dose/Route: 2 mg Instruction: 1 x 2 mg tablet Protocol Text: Adjustment Start Date: Tuesday06/17/23 INR Value: 1.7 INR Date: 06/17/23 Recheck Date: 06/24/23 Patient Comments: Adjustment 01/03. Pt to take 2mg Wednesday 01/03, 2mg Thursday 01/04. Retest 01/05. Rx Instructions: 4mg Tue, Tue, Tue. 2mg Tue, , , Sat orally; metoprolol tartrate 25 mg tablet 25 mg PO BID Qty: 180 3RF Hold Instructions: Resume on 06/24/23. Referrals / Follow Up: Tremaine Molina MD [Med Staff - Active Staff] - 07/27/23 1:30 pm César Chinchilla MD [Primary Care Provider] - 07/19/23 4:40 pm Vadim Mars MD [Med Staff - Active Staff] - (f/u after TCU DC for BPH) Disposition Disposition (needs filled in before D/C Order can be placed): Home Health Service
[2023-07-06 22:04] VITALS: BP 132/75; PULSE 87
[2023-07-06] MEDS: Tamsulosin HCl 0.4 MG Capsule PO (22:04)
[2023-07-06] MEDS: MELATONIN 10 MG TABLET PO (22:04)
[2023-07-06] MEDS: Vitamin B Comp W-C Capsule 1 CAP PO (22:05)
[2023-07-06] MEDS: LORazepam 0.5 MG Tablet PO (22:10)
[2023-07-06] MEDS: Ceftriaxone 1 GM/50 ML BAG IV (22:16)
[2023-07-06] MEDS: Azithromycin 500 MG in Dextrose 5%-Water (250mL Bag) 250 ML 250 MG IV (23:03)
[2023-07-06 23:27] VITALS: O2SAT 86
[2023-07-07] MEDS: traMADol 50 MG Tablet PO (00:10)
[2023-07-07] MEDS: Levothyroxine 50 MCG Tablet PO (05:25)
[2023-07-07] MEDS: Acetaminophen 500 MG Tablet 1000 MG PO ×3 (05:25→21:15)
[2023-07-07] MEDS: Sucralfate 1 GM Tablet PO ×3 (05:26→17:44)
[2023-07-07 05:43] VITALS: O2SAT 93
[2023-07-07 06:51] LABS: International Normalized Ratio 2.9; Prothrombin Time (Protime)PT. 30.7 SECONDS (11.7-14.9)
[2023-07-07] MEDS: Lactulose 20 GM/30 ML UDC 10 GM PO (07:56)
[2023-07-07] MEDS: Ensure Plus High Protein 120 ML LIQUID PO ×3 (07:56→17:44)
[2023-07-07] MEDS: Finasteride 5 MG Tablet PO (07:57)
[2023-07-07] MEDS: Cholecalciferol (VIT D3) 25 MCG TABLET (1,000 UNITS) PO (07:57)
[2023-07-07] MEDS: Amiodarone 200 MG Tablet 100 MG PO ×2 (07:57→21:17)
[2023-07-07] MEDS: Multivitamins,Therapeutic Tablet 1 TABLET PO (07:57)
[2023-07-07] MEDS: Ascorbic Acid 500 MG Tablet PO (07:57)
[2023-07-07 07:58] VITALS: BP 130/96; PULSE 97
[2023-07-07] MEDS: Lidocaine 5% Patch 1 PATCH TOPICAL (07:58)
[2023-07-07] MEDS: Furosemide 40 MG Tablet PO (07:58)
[2023-07-07] MEDS: Vitamin B Comp W-C Capsule 1 CAP PO ×2 (07:58→21:16)
[2023-07-07] MEDS: Famotidine 20 MG Tablet 40 MG PO (07:58)
[2023-07-07] MEDS: Metoprolol Tartrate 25 MG Tablet PO ×2 (07:58→21:16)
[2023-07-07] MEDS: 0.9% Saline Lock 10 ML Syringe IV (11:38)
[2023-07-07 11:50] VITALS: O2SAT 96
[2023-07-07 13:21] VITALS: O2SAT 94
[2023-07-07] MEDS: MELATONIN 10 MG TABLET PO (21:15)
[2023-07-07] MEDS: 0.9% Normal Saline (250mL Bag) 250 ML 15 ML IV (21:15)
[2023-07-07 21:16] VITALS: PULSE 98
[2023-07-07] MEDS: Tamsulosin HCl 0.4 MG Capsule PO (21:16)
[2023-07-07] MEDS: Ceftriaxone 1 GM/50 ML BAG IV (21:16)
[2023-07-07] MEDS: Azithromycin 500 MG in Dextrose 5%-Water (250mL Bag) 250 ML 250 MG IV (22:31)
[2023-07-07] MEDS: LORazepam 0.5 MG Tablet PO (22:34)
[2023-07-08] MEDS: Mag Hydrox/Al Hydrox/Simeth 30 ML UDC PO (02:14)
[2023-07-08] MEDS: Ondansetron ODT 4 MG Tablet PO (06:12)
[2023-07-08] MEDS: Acetaminophen 500 MG Tablet 1000 MG PO ×3 (06:28→21:43)
[2023-07-08] MEDS: Levothyroxine 50 MCG Tablet PO (06:28)
[2023-07-08] MEDS: Sucralfate 1 GM Tablet PO ×3 (06:29→17:16)
[2023-07-08 06:32] VITALS: BMI 21.5
[2023-07-08 07:25] VITALS: O2SAT 94
[2023-07-08 09:14] VITALS: BP 125/77; PULSE 96; RESP 16; TEMP 36.4; O2SAT 93
[2023-07-08] MEDS: Multivitamins,Therapeutic Tablet 1 TABLET PO (09:25)
[2023-07-08] MEDS: Ascorbic Acid 500 MG Tablet PO (09:25)
[2023-07-08] MEDS: Cholecalciferol (VIT D3) 25 MCG TABLET (1,000 UNITS) PO (09:26)
[2023-07-08] MEDS: Vitamin B Comp W-C Capsule 1 CAP PO ×2 (09:26→21:42)
[2023-07-08] MEDS: Amiodarone 200 MG Tablet 100 MG PO ×2 (09:27→21:42)
[2023-07-08] MEDS: Lidocaine 5% Patch 1 PATCH TOPICAL (09:27)
[2023-07-08] MEDS: Lactulose 20 GM/30 ML UDC 10 GM PO (09:27)
[2023-07-08] MEDS: Furosemide 40 MG Tablet PO (09:27)
[2023-07-08 09:28] VITALS: BP 125/77; PULSE 96
[2023-07-08] MEDS: Metoprolol Tartrate 25 MG Tablet PO ×2 (09:28→21:42)
[2023-07-08] MEDS: Famotidine 20 MG Tablet 40 MG PO (09:28)
[2023-07-08] MEDS: Finasteride 5 MG Tablet PO (09:28)
--- NOTE | 2023-07-08 09:43 | NURSING ---
Patient still reporting SOB, oxygen saturation 93% on 4 liters O2. Lung sounds clear T/O.
[2023-07-08 10:00] VITALS: RESP 16
[2023-07-08] MEDS: Ensure Plus High Protein 120 ML LIQUID PO (11:32)
--- NOTE | 2023-07-08 12:04 | CASEMGMT ---
Social Work SW spoke with pt to discuss DC plans. Pt is not medically stable and IDT continues to express concerns with pt returning home alone. PT and OT spoke with pt further yesterday about AL. Pt agreeable to not returning home alone and needing more assistance. Pt is agreeable to AL, however, after financial assessment, pt cannot afford AL. SW discussed Medicaid, which pt potentially could qualify. Educated to DC to SNF under [facility] until pt could return home or placed in AL, since [facility] AL has waitlists. Pt unsure he wants to pursue [facility]. Educated to hiring 3 hrs of RACECAR DRIVER in the home 7 days/wk, however, that may deplete pt's income. SW offered to provide resources for RACECAR DRIVER, AL and SNF. Pt agreeable and will discuss further with therapy and family. SW and pt agreed to postpone DC until stable and DC plans in place. SW will continue to follow. Roya Sarabia, NAUN CAMP NURSE
[2023-07-08] MEDS: 0.9% Saline Lock 10 ML Syringe IV ×2 (13:23→21:39)
[2023-07-08 19:12] VITALS: PULSE 92; RESP 20; O2SAT 96
[2023-07-08] MEDS: Ipratropium/Albuterol Sulfate 3 ML AMPUL.NEB INHALATION (19:12)
[2023-07-08] MEDS: Ceftriaxone 1 GM/50 ML BAG IV (21:39)
[2023-07-08] MEDS: MENTHOL 226.8 GM JAR 1 APPLIC TOPICAL (21:40)
[2023-07-08 21:42] VITALS: BP 130/88; PULSE 105
[2023-07-08] MEDS: MELATONIN 10 MG TABLET PO (21:42)
[2023-07-08] MEDS: Tamsulosin HCl 0.4 MG Capsule PO (21:42)
[2023-07-08] MEDS: LORazepam 0.5 MG Tablet PO (22:42)
[2023-07-08] MEDS: traMADol 50 MG Tablet PO (22:42)
[2023-07-08] MEDS: Azithromycin 500 MG in Dextrose 5%-Water (250mL Bag) 250 ML 250 MG IV (22:50)
[2023-07-09] VITALS (7 sets, daily range): BP systolic 109–162; BP diastolic 66–94; PULSE 86–108; RESP 18; TEMP 36.1; O2SAT 95–97
[2023-07-09] MEDS: LORazepam 0.5 MG Tablet PO ×2 (06:18→22:49)
[2023-07-09] MEDS: Levothyroxine 50 MCG Tablet PO (06:18)
[2023-07-09] MEDS: Acetaminophen 500 MG Tablet 1000 MG PO ×3 (06:19→21:52)
[2023-07-09] MEDS: Sucralfate 1 GM Tablet PO ×2 (06:19→16:41)
[2023-07-09] MEDS: Ondansetron ODT 4 MG Tablet PO (06:20)
[2023-07-09] MEDS: Ipratropium/Albuterol Sulfate 3 ML AMPUL.NEB INHALATION ×2 (07:30→19:16)
[2023-07-09 08:19] LABS: International Normalized Ratio 1.9
[2023-07-09] MEDS: Lidocaine 5% Patch 1 PATCH TOPICAL (10:27)
[2023-07-09] MEDS: Cholecalciferol (VIT D3) 25 MCG TABLET (1,000 UNITS) PO ×2 (10:30)
[2023-07-09] MEDS: Furosemide 40 MG Tablet PO (10:30)
[2023-07-09] MEDS: Lactulose 20 GM/30 ML UDC 10 GM PO (10:31)
[2023-07-09] MEDS: Vitamin B Comp W-C Capsule 1 CAP PO ×2 (10:31→21:56)
[2023-07-09] MEDS: Amiodarone 200 MG Tablet 100 MG PO ×2 (10:31→21:54)
[2023-07-09] MEDS: Famotidine 20 MG Tablet 40 MG PO (10:31)
[2023-07-09] MEDS: Finasteride 5 MG Tablet PO (10:33)
[2023-07-09] MEDS: Multivitamins,Therapeutic Tablet 1 TABLET PO (10:33)
[2023-07-09] MEDS: Metoprolol Tartrate 25 MG Tablet PO ×2 (10:34→21:52)
[2023-07-09] MEDS: Polyethylene Glycol 3350 17 GM PACKET PO (12:06)
[2023-07-09] MEDS: 0.9% Saline Lock 10 ML Syringe IV (12:07)
[2023-07-09] MEDS: Ensure Plus High Protein 120 ML LIQUID PO ×2 (12:47→17:40)
[2023-07-09] MEDS: Ceftriaxone 1 GM/50 ML BAG IV (21:37)
[2023-07-09] MEDS: MELATONIN 10 MG TABLET PO (21:52)
[2023-07-09] MEDS: Tamsulosin HCl 0.4 MG Capsule PO (21:57)
[2023-07-09] MEDS: MENTHOL 226.8 GM JAR 1 APPLIC TOPICAL (22:00)
[2023-07-09] MEDS: Azithromycin 500 MG in Dextrose 5%-Water (250mL Bag) 250 ML 250 MG IV (22:41)
[2023-07-10] VITALS (7 sets, daily range): BP systolic 111–123; BP diastolic 74–81; PULSE 73–110; RESP 18–19; TEMP 36.6; O2SAT 92–94; BMI 21.4
[2023-07-10] MEDS: Mag Hydrox/Al Hydrox/Simeth 30 ML UDC PO (00:27)
[2023-07-10] MEDS: Levothyroxine 50 MCG Tablet PO (06:22)
[2023-07-10] MEDS: Acetaminophen 500 MG Tablet 1000 MG PO ×3 (06:22→21:43)
[2023-07-10] MEDS: Sucralfate 1 GM Tablet PO ×3 (06:22→16:35)
[2023-07-10] MEDS: MENTHOL 226.8 GM JAR 1 APPLIC TOPICAL ×3 (06:27→22:38)
[2023-07-10 06:38] LABS: International Normalized Ratio 1.9; Prothrombin Time (Protime)PT. 21.8 SECONDS (11.7-14.9)
[2023-07-10] MEDS: Ipratropium/Albuterol Sulfate 3 ML AMPUL.NEB INHALATION ×2 (07:25→20:05)
[2023-07-10] MEDS: Ensure Plus High Protein 120 ML LIQUID PO ×3 (08:29→17:31)
[2023-07-10] MEDS: Metoprolol Tartrate 25 MG Tablet PO ×2 (08:31→21:42)
[2023-07-10] MEDS: Furosemide 40 MG Tablet PO (08:31)
[2023-07-10] MEDS: Famotidine 20 MG Tablet 40 MG PO (08:31)
[2023-07-10] MEDS: Cholecalciferol (VIT D3) 25 MCG TABLET (1,000 UNITS) PO (08:32)
[2023-07-10] MEDS: Multivitamins,Therapeutic Tablet 1 TABLET PO (08:32)
[2023-07-10] MEDS: Vitamin B Comp W-C Capsule 1 CAP PO ×2 (08:33→21:43)
[2023-07-10] MEDS: Ascorbic Acid 500 MG Tablet PO (08:33)
[2023-07-10] MEDS: Amiodarone 200 MG Tablet 100 MG PO ×2 (08:33→21:43)
[2023-07-10] MEDS: Finasteride 5 MG Tablet PO (08:34)
[2023-07-10] MEDS: Lactulose 20 GM/30 ML UDC 10 GM PO (08:34)
[2023-07-10] MEDS: Lidocaine 5% Patch 1 PATCH TOPICAL (08:36)
[2023-07-10] MEDS: 0.9% Saline Lock 10 ML Syringe IV ×2 (11:40→21:42)
[2023-07-10] MEDS: Tamsulosin HCl 0.4 MG Capsule PO (21:42)
[2023-07-10] MEDS: MELATONIN 10 MG TABLET PO (21:43)
[2023-07-10] MEDS: Ceftriaxone 1 GM/50 ML BAG IV (21:46)
[2023-07-10] MEDS: Azithromycin 500 MG in Dextrose 5%-Water (250mL Bag) 250 ML 250 MG IV (22:36)
[2023-07-10] MEDS: Ondansetron ODT 4 MG Tablet PO (23:29)
[2023-07-10] MEDS: LORazepam 0.5 MG Tablet PO (23:33)
--- NOTE | 2023-07-10 23:36 | NURSING ---
Pt c/o SOB and nausea. No signs of resp. distress noted. 1:1 given. Vitals stable. PRN Ativan and Zofran given. Pt participated in deep breathing exercises. Pt voices feeling better.
[2023-07-11] MEDS: Acetaminophen 500 MG Tablet 1000 MG PO ×3 (05:44→21:38)
[2023-07-11] MEDS: Levothyroxine 50 MCG Tablet PO (05:44)
[2023-07-11 06:41] VITALS: BMI 21.5
[2023-07-11] MEDS: Sucralfate 1 GM Tablet PO ×3 (06:42→16:11)
[2023-07-11 07:00] VITALS: PULSE 102; RESP 18
[2023-07-11] MEDS: Ipratropium/Albuterol Sulfate 3 ML AMPUL.NEB INHALATION ×2 (07:00→13:50)
[2023-07-11] MEDS: Ondansetron ODT 4 MG Tablet PO (08:27)
--- NOTE | 2023-07-11 10:43 | CASEMGMT ---
Social Work Pt requested to speak with this worker. SW spoke with pt and answered questions. Reiterated differences between LOC for GROUNDS MAINTENANCE SUPERVISOR at home, AL and SNF and costs. SW offered Medicaid again. Pt agreeable to complete application. SW reminded pt to contact home today to establish irrevocable trust for burial. Pt expressed understanding. SW sent referral to [facility] via email. Will continue to follow. Roya Sarabia DIRECTOR SALES TRAINING DRAFTING TEACHER
[2023-07-11] MEDS: Lidocaine 5% Patch 1 PATCH TOPICAL (11:11)
[2023-07-11] MEDS: Famotidine 20 MG Tablet 40 MG PO (11:11)
[2023-07-11] MEDS: Ascorbic Acid 500 MG Tablet PO (11:12)
[2023-07-11] MEDS: Multivitamins,Therapeutic Tablet 1 TABLET PO (11:12)
[2023-07-11] MEDS: Vitamin B Comp W-C Capsule 1 CAP PO ×2 (11:13→21:39)
[2023-07-11] MEDS: Lactulose 20 GM/30 ML UDC 10 GM PO (11:13)
[2023-07-11] MEDS: Amiodarone 200 MG Tablet 100 MG PO ×2 (11:14→21:46)
[2023-07-11] MEDS: Furosemide 40 MG Tablet PO (11:14)
[2023-07-11 11:15] VITALS: PULSE 72
[2023-07-11] MEDS: Finasteride 5 MG Tablet PO (11:15)
[2023-07-11] MEDS: Metoprolol Tartrate 25 MG Tablet PO ×2 (11:15→21:45)
[2023-07-11 13:50] VITALS: PULSE 99; RESP 18
[2023-07-11 14:24] VITALS: BP 112/73; PULSE 99; RESP 18; TEMP 36.3; O2SAT 98
[2023-07-11] MEDS: MENTHOL 226.8 GM JAR 1 APPLIC TOPICAL (16:19)
[2023-07-11] MEDS: Ensure Plus High Protein 120 ML LIQUID PO (17:29)
[2023-07-11] MEDS: Ceftriaxone 1 GM/50 ML BAG IV (21:37)
[2023-07-11] MEDS: 0.9% Saline Lock 10 ML Syringe IV (21:37)
[2023-07-11] MEDS: Tamsulosin HCl 0.4 MG Capsule PO (21:38)
[2023-07-11] MEDS: MELATONIN 10 MG TABLET PO (21:38)
[2023-07-11 21:45] VITALS: BP 146/78; PULSE 101
[2023-07-11] MEDS: traMADol 50 MG Tablet PO (21:45)
[2023-07-11] MEDS: Azithromycin 500 MG in Dextrose 5%-Water (250mL Bag) 250 ML 250 MG IV (22:48)
[2023-07-12] VITALS (7 sets, daily range): BP systolic 114–140; BP diastolic 67–92; PULSE 83–108; RESP 16–24; TEMP 36.8; O2SAT 89–94; BMI 21.7
[2023-07-12] MEDS: Acetaminophen 500 MG Tablet 1000 MG PO ×3 (05:41→21:37)
[2023-07-12] MEDS: Levothyroxine 50 MCG Tablet PO (05:41)
[2023-07-12] MEDS: Sucralfate 1 GM Tablet PO ×3 (05:41→17:06)
[2023-07-12] MEDS: Ipratropium/Albuterol Sulfate 3 ML AMPUL.NEB INHALATION ×2 (07:40→14:15)
[2023-07-12] MEDS: Ondansetron ODT 4 MG Tablet PO ×2 (09:26→22:42)
[2023-07-12] MEDS: Lidocaine 5% Patch 1 PATCH TOPICAL (10:06)
[2023-07-12] MEDS: Cholecalciferol (VIT D3) 25 MCG TABLET (1,000 UNITS) PO (10:08)
[2023-07-12] MEDS: Ascorbic Acid 500 MG Tablet PO (10:08)
[2023-07-12] MEDS: Multivitamins,Therapeutic Tablet 1 TABLET PO (10:08)
[2023-07-12] MEDS: Amiodarone 200 MG Tablet 100 MG PO ×2 (10:09→21:36)
[2023-07-12] MEDS: Lactulose 20 GM/30 ML UDC 10 GM PO (10:10)
[2023-07-12] MEDS: Furosemide 40 MG Tablet PO (10:10)
[2023-07-12] MEDS: Metoprolol Tartrate 25 MG Tablet PO ×2 (10:11→21:35)
[2023-07-12] MEDS: Vitamin B Comp W-C Capsule 1 CAP PO ×2 (10:11→21:35)
[2023-07-12] MEDS: Finasteride 5 MG Tablet PO (10:12)
[2023-07-12] MEDS: Famotidine 20 MG Tablet 40 MG PO (10:12)
[2023-07-12] MEDS: 0.9% Saline Lock 10 ML Syringe IV (10:20)
--- NOTE | 2023-07-12 10:29 | NURSING ---
PT STATED HE WAS FEELING NAUSEATED AND DIZZY. PRN ZOFRAN GIVEN,SPRITE AND SALTINES. EDUCATED PT ON CALLING FOR HELP IF HE NEEDS TO USE RESTROOM IF HES DIZZY. PT STATED HE UNDERSTOOD. WILL CONTINUE TO MONITOR. RN AWARE.
[2023-07-12] MEDS: Ensure Plus High Protein 120 ML LIQUID PO (13:52)
--- NOTE | 2023-07-12 14:48 | CASEMGMT ---
Social Work SW spoke with pt to follow up on SNF choices. Pt choosing [facility]. Pt stated he has not received a call from [facility] yet. SW sent follow up email. Placed referrals to SNF via [facility]. Roya Sarabia, WALL SCRAPER TEXTILE SUPERVISOR
[2023-07-12] MEDS: LORazepam 0.5 MG Tablet PO ×2 (16:06→22:19)
[2023-07-12] MEDS: traMADol 50 MG Tablet PO (17:12)
--- NOTE | 2023-07-12 17:15 | NURSING ---
Addendum entered by Oswaldo Raines 07/12/23 18:14: PT STATED HE FEELS MUCH BETTER AND THANKED THIS NURSE. Original Note: PT COMPLAINING OF SOB. OXYGEN 94% ON 5L. PT SEEMS ANXIOUS, PRN ATIVAN GIVEN. PT CALLS OUT AN HOUR LATER AND STATES HE HAS PAIN,PRN ULTRAM GIVEN AND HELPED PT BACK TO BED. HR RANGING 98-101. WILL CONTINUE TO MONITOR. RN AWARE
[2023-07-12] MEDS: Tamsulosin HCl 0.4 MG Capsule PO (21:36)
[2023-07-12] MEDS: MELATONIN 10 MG TABLET PO (21:37)
[2023-07-13 05:43] LABS: Absolute Lymphocyte Count 0.72 X10^3/uL (0.83-4.51); Absolute Neutrophil Count 8.6 X10^3/uL (2.0-7.7); Basophil# 0.07 X10^3/uL; Basophil% 0.7 % (0-1); Eosinophils% 0.9 % (0-5); Hematocrit 27.1 % (40-54); Hemoglobin 8.5 g/dL (13.0-16.5); Lymphocyte # 0.72 X10^3/ul (0.83-4.51); Lymphocyte % 6.8 % (19-41); Mean Corp Hgb Conc 31.4 g/dL (32-36); Mean Corpuscular Hgb 33.5 pg (27.0-32.0); Mean Corpuscular Volume 106.7 fL (80-94); Mean Platelet Vol. 9.7 fl (6.2-12.0); Monocyte% 9.4 % (0-10); NRBC Flagged by Analyzer 0.3 % (0-5); Neutrophil # 8.64 X10^3/uL (2.7-7.7); Neutrophil % 81.3 % (47-70); POSITIVE MORPHOLOGY YES; Platelet Count 332 K/mm3 (150-450); RBC Distribution Width CV 21.9 % (11.6-14.6); RBC Distribution Width SD 85.1 fl (35.1-43.9); Red Blood Count 2.54 M/mm3 (4.6-6.2); White Blood Count 10.6 K/mm3 (4.4-11.0)
[2023-07-13] MEDS: Levothyroxine 50 MCG Tablet PO (06:07)
[2023-07-13] MEDS: Acetaminophen 500 MG Tablet 1000 MG PO ×3 (06:07→22:09)
[2023-07-13] MEDS: Sucralfate 1 GM Tablet PO ×3 (06:08→16:43)
[2023-07-13 06:28] LABS: Anion Gap 4 (5-15); BUN 44 mg/dL (7-18); Calcium,Total 8.3 mg/dL (8.5-10.1); Chloride 106 mmol/L (98-107); EST Glomerular Filtration Rate 32 mL/min (>60); Est Glom Filt Rate - Afr Amer 39 mL/min (>60); Glucose 90 mg/dL (74-106); Potassium 3.8 mmol/L (3.5-5.1); Sodium Level 140 mmol/L (136-145)
[2023-07-13 07:12] LABS: Differential Indicated SCAN CRITERIA MET
[2023-07-13 07:14] LABS: Anisocytosis 1+; Differential Comment SCANNED; Hypochromasia 1+; Macrocytosis 1+
[2023-07-13 08:10] VITALS: PULSE 72; RESP 18; O2SAT 91
[2023-07-13] MEDS: Ipratropium/Albuterol Sulfate 3 ML AMPUL.NEB INHALATION ×2 (08:10→13:50)
[2023-07-13] MEDS: Ensure Plus High Protein 120 ML LIQUID PO ×3 (09:02→17:57)
[2023-07-13] MEDS: Multivitamins,Therapeutic Tablet 1 TABLET PO (09:02)
[2023-07-13] MEDS: Vitamin B Comp W-C Capsule 1 CAP PO ×2 (09:02→20:31)
[2023-07-13] MEDS: Amiodarone 200 MG Tablet 100 MG PO ×2 (09:02→20:32)
[2023-07-13] MEDS: Cholecalciferol (VIT D3) 25 MCG TABLET (1,000 UNITS) PO (09:02)
[2023-07-13] MEDS: Famotidine 20 MG Tablet 40 MG PO (09:03)
[2023-07-13] MEDS: Lactulose 20 GM/30 ML UDC 10 GM PO (09:03)
[2023-07-13] MEDS: Furosemide 40 MG Tablet PO (09:03)
[2023-07-13 09:04] VITALS: BP 114/74; PULSE 100
[2023-07-13] MEDS: Polyethylene Glycol 3350 17 GM PACKET PO (09:04)
[2023-07-13] MEDS: Metoprolol Tartrate 25 MG Tablet PO ×2 (09:04→20:32)
[2023-07-13] MEDS: Ascorbic Acid 500 MG Tablet PO (09:04)
[2023-07-13] MEDS: Finasteride 5 MG Tablet PO (09:05)
[2023-07-13] MEDS: 0.9% Saline Lock 10 ML Syringe IV (10:42)
[2023-07-13 11:20] VITALS: O2SAT 96
[2023-07-13 14:25] VITALS: PULSE 76; RESP 18
[2023-07-13 14:30] VITALS: BP 132/65; PULSE 99; RESP 20; TEMP 36.5; O2SAT 92
--- NOTE | 2023-07-13 14:46 | CASEMGMT ---
Social Work SW followed up with pt that [facility], [facility] and [facility] do not have any beds available. Inquired about other SNF options. Pt agreeable to [facility]errals [facility]. If those cannot accept, then [facility] and [facility]. SW placed referrals via [facility] to [facility] and [facility]. MAGNUS sent follow up email to [facility] on status of application. Will continue to follow. Roya Sarabia, MID LEVEL PRACTITIONER CHURN DRILLER HELPER
--- NOTE | 2023-07-13 18:34 | NURSING ---
warfarin held tonight d/t + occult stool and new order to consult dr Hodges. HGB 8.5.
[2023-07-13 20:32] VITALS: BP 143/83; PULSE 103
[2023-07-13] MEDS: Tamsulosin HCl 0.4 MG Capsule PO (20:32)
[2023-07-13] MEDS: MELATONIN 10 MG TABLET PO (20:36)
[2023-07-14] MEDS: LORazepam 0.5 MG Tablet PO (01:14)
[2023-07-14 06:05] LABS: Hematocrit 26.8 % (40-54); Hemoglobin 8.4 g/dL (13.0-16.5)
[2023-07-14] MEDS: Acetaminophen 500 MG Tablet 1000 MG PO ×3 (06:14→21:56)
[2023-07-14] MEDS: Levothyroxine 50 MCG Tablet PO (06:14)
[2023-07-14] MEDS: Sucralfate 1 GM Tablet PO ×3 (06:14→16:35)
[2023-07-14] MEDS: MENTHOL 226.8 GM JAR 1 APPLIC TOPICAL ×2 (06:16→15:03)
[2023-07-14 06:26] LABS: International Normalized Ratio 2.4; Prothrombin Time (Protime)PT. 26.5 SECONDS (11.7-14.9)
[2023-07-14 09:22] VITALS: BP 141/93; PULSE 97
[2023-07-14] MEDS: Metoprolol Tartrate 25 MG Tablet PO ×2 (09:22→21:53)
[2023-07-14] MEDS: Ascorbic Acid 500 MG Tablet PO (09:22)
[2023-07-14] MEDS: Lactulose 20 GM/30 ML UDC 10 GM PO (09:22)
[2023-07-14] MEDS: Famotidine 20 MG Tablet 40 MG PO (09:22)
[2023-07-14] MEDS: Finasteride 5 MG Tablet PO (09:22)
[2023-07-14] MEDS: Amiodarone 200 MG Tablet 100 MG PO ×2 (09:23→21:52)
[2023-07-14] MEDS: Multivitamins,Therapeutic Tablet 1 TABLET PO (09:23)
[2023-07-14] MEDS: Vitamin B Comp W-C Capsule 1 CAP PO ×2 (09:23→21:51)
[2023-07-14] MEDS: Furosemide 40 MG Tablet PO (09:23)
[2023-07-14] MEDS: Ensure Plus High Protein 120 ML LIQUID PO ×2 (09:23→11:30)
[2023-07-14] MEDS: Cholecalciferol (VIT D3) 25 MCG TABLET (1,000 UNITS) PO (09:23)
--- NOTE | 2023-07-14 10:19 | PCM.PN.REN ---
Subjective Subjective Resting in bed, denies complaints. states has good appetite with no recent N/V/D. Objective Data Objective Data Vital Signs: Vital Signs Temp Pulse Resp BP Pulse Ox O2 Del Method O2 Flow Rate 97.7 F L 97 20 H 141/93 H 92 Nasal Cannula 5 07/13/23 14:30 07/14/23 09:22 07/13/23 14:30 07/14/23 09:22 07/13/23 14:30 07/13/23 22:00 07/13/23 22:00 Oxygen Flow Rate (L/min) 5 Oxygen Delivery Method Nasal Cannula Weight: 64.909 kg Body Mass Index (BMI) 21.7 Intake & Output: Intake and Output for Last 24 Hours 07/12/23 07/13/23 07/14/23 23:59 23:59 23:59 Intake Total 720 / 720 840 / 840 Balance 720 / 720 840 / 840 Lab / Micro Data 07/14/23 05:16 07/13/23 05:23 Labs: Laboratory Results - last 24 hr 07/14/23 05:16: Hgb 8.4 L, Hct 26.8 L, PT 26.5 H, INR 2.4 Micro: Microbiology 07/13/23 15:20 Stool Stool Occult Blood ([facility]) - Final Occult Blood Positive 07/05/23 20:10 Mucosa - Nasopharyngeal Respiratory Panel (PCR) - Final 07/05/23 20:00 Nasal Secretion SARS-CoV-2 Antigen (Rapid) - Final 06/29/23 04:10 Nasal Secretion SARS-CoV-2 Antigen (Rapid) - Final 06/26/23 06:00 Nasal Secretion SARS-CoV-2 Antigen (Rapid) - Final 06/23/23 05:16 Nasal Secretion SARS-CoV-2 Antigen (Rapid) - Final Physical Exam Narrative Alert and oriented x3, no apparent distress S1, S2, RRR Lung sounds clear anteriorly and posteriorly. No wheezes, rhonchi rales Abdomen soft, nontender trace non-pitting LE edema Assessment & Plan Assessment/Plan (1) FE (acute kidney injury): (2) Chronic kidney disease, stage 3b: PLAN: Plan This is a pleasant 83-year-old male with past medical history significant for COPD, hypertension, hyperlipidemia, hypothyroidism, heart failure preserved EF, ALVARADO on CPAP, CKD who presented to the emergency room on June 16 with complaints of diarrhea, emesis and intractable nausea, patient was admitted for viral gastroenteritis and FE. Patient is now in TCU for therapy. Nephrology consulted as patient has history of CKD. - chronic kidney disease stage III with baseline creatinine ranging around 1.6 to 1.8 mg/dL. On admission to the hospital patient's creatinine was 4.33 mg/dL (this was peak) and daily renal function improved with IV fluids and holding diuretics. IV fluids were stopped over a week ago. Serum creatinine is 1.59. Overall volume status appears stable/compensated. Patient is nonoliguric. Patient did have gallbladder ultrasound no hydronephrosis right kidney. Lasix was restarted 40mg daily. SCr 2.1mg/dL 07/13. Will hold lasix for tomorrow and over the weekend. Check labs Tuesday and december restart lasix MWF schedule. At home patient was taking lasix prn for worsening edema and weight gain. - Blood pressures acceptable. - Urology consulted as patient has history of BPH currently on Flomax. - anemia of chronic disease; hgb 8.4. stool OB+. GI consulted Will arrange for hospital follow-up at time of discharge.
[2023-07-14] MEDS: Ondansetron ODT 4 MG Tablet PO (11:20)
[2023-07-14] MEDS: traMADol 50 MG Tablet PO (11:37)
[2023-07-14 13:08] VITALS: PULSE 68; RESP 18
[2023-07-14] MEDS: Ipratropium/Albuterol Sulfate 3 ML AMPUL.NEB INHALATION (13:08)
[2023-07-14 14:57] VITALS: O2SAT 84; O2SAT 93
[2023-07-14 15:30] VITALS: BP 136/85; PULSE 77; RESP 20; TEMP 36.6; O2SAT 97
--- NOTE | 2023-07-14 16:28 | EX.PCM.CON.G ---
HPI Consult Data Date of Consult: 07/14/23 HPI Narrative Reason for Consultation: Anemia HPI Narrative: RICHIE HANSEN, is a 83 M who presents to the ED with shortness of breath. He has a history of coronary artery disease with stenting to his LAD in July 2000, atrial fibrillation with pulmonary vein isolation in 2011 and outpatient cardioversion on 06/18/2019, hypertension and hyperlipidemia. His heart catheterization in 2011 demonstrated a patent stent. Patient presented to [facility] in December 2020 for weakness. His EKG showed concern for third-degree heart block. He underwent echocardiogram on 01/21/2021 that showed an ejection fraction of 60%, severely enlarged left atrium, mildly enlarged right atrium, moderately severe mitral valve insufficiency, moderately severe tricuspid valve insufficiency, and mild aortic valve insufficiency. RVSP was noted to 47 mmHg. His EKG was interpreted as atypical or sick atrial flutter with variable AV conduction. His medications were adjusted. He was worked up for shortness of breath. He was discovered to have pneumonia. ACS was ruled out and he was admitted to TCU with debility, here for rehabilitation, strengthening, prior to discharge home alone. He has a history of Iron deficiency Anemia, UGI endoscopy and Pill endoscopy on 06/30/2022 did not show any source of bleeding. Has taken Oral Iron supplements with no improvement so was referred for IV iron replacement. He received Injectafer 1500mg IV. I was called to see him because of a worsening anemia and Hemoccult + stools. [facility] Medical History Acute constipation Acute exacerbation of chronic low back pain Acute gastrointestinal bleeding Acute kidney injury superimposed on chronic kidney disease Ambulates with cane Anemia Arthritis Atherosclerotic heart disease of [place] coronary artery without angina pectoris Atrial fibrillation Atypical atrial flutter (12/2020) Back pain Benign prostatic hyperplasia BPH (benign prostatic hyperplasia) Cancer Cardiology follow-up encounter Chronic anemia Chronic heart failure with preserved ejection fraction (HFpEF) Chronic kidney disease Chronic renal insufficiency Colitis CPAP (continuous positive airway pressure) dependence Debility Diarrhea Difficulty chewing Dysphagia Easy bruising Elevated LFTs Elevated liver enzymes Essential (primary) hypertension Excessive bleeding Gastric reflux GI bleed (2012) Hiatal hernia High cholesterol History of colon polyps History of diverticulitis History of echocardiogram History of edema History of heart attack History of hyperthyroidism History of leukemia History of pain when walking History of renal disease History of stress test HLD (hyperlipidemia) Hypothyroidism Kidney disease Kidney stones Myocardial infarct Nausea and vomiting Non-rheumatic tricuspid valve insufficiency Non-smoker Nonrheumatic mitral (valve) insufficiency 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 Osteoarthritis Paroxysmal atrial fibrillation Secondary pulmonary arterial hypertension Sleep apnea Sleep apnea Stage 3b chronic kidney disease Thoracic aortic aneurysm (TAA) Thyroid disease Wears glasses Home Medications denosumab 60 mg/mL subcutaneous syringe (Prolia) 60 mg SQ .[id number] BONES 12/09/20 [History Last Taken 11/10/22] tamsulosin 0.4 mg capsule 0.4 mg PO QHS bladder 11/18/21 [History Last Taken 06/20/23] levothyroxine 25 mcg tablet 50 mcg PO DAILY thyroid 02/17/22 [History Last Taken 06/21/23] vitamin B complex 1 cap PO BID supplement 05/01/22 [History Last Taken 02/12/23] linaclotide 72 mcg capsule (Linzess) 72 mcg PO DAILY PRN Diarrhea 06/15/22 [History Last Taken Unknown] ascorbic acid (vitamin C) 500 mg tablet 500 mg PO DAILY supplement 07/20/22 [History Last Taken 06/21/23] finasteride 5 mg tablet 5 mg PO DAILY prostate 08/05/22 [History Last Taken 06/21/23] cholecalciferol (vitamin D3) 25 mcg (1,000 unit) capsule (Vitamin D3) 1,000 unit PO DAILY supplement 02/19/23 [History Last Taken Unknown] polyethylene glycol 3350 17 gram oral powder packet 17 g PO DAILY constipation 02/19/23 [History Last Taken Unknown] amiodarone 100 mg tablet 100 mg PO BID heart 02/21/23 [History Last Taken 06/21/23] sucralfate 1 gram tablet 1 g PO TID@0700,1100,1600 stomach 30 days #90 tabs 03/21/23 [Rx Last Taken 06/21/23] famotidine 40 mg tablet 40 mg PO DAILY stomach #30 tabs 04/11/23 [Rx Last Taken Unknown] lactulose 10 gram/15 mL oral solution 10 g (15 mL) PO DAILY constipation 30 days #450 mL 05/18/23 [Rx Last Taken Unknown] loratadine 10 mg tablet (Claritin) 10 mg PO DAILY allergies 06/16/23 [History Last Taken Unknown] warfarin 3 mg tablet (Jantoven) 3 mg PO SuTuThSa@1700 blood thinner #0 tabs 06/21/23 [Rx Last Taken 06/19/23] warfarin 4 mg tablet See Rx Instructions .Route .COMPLEX blood thinner #60 tabs 06/21/23 [Rx Last Taken 06/20/23] acetaminophen 500 mg tablet 1,000 mg (2 x 500 mg) PO Q8 #0 tabs 07/06/23 [Rx Last Taken Unknown] furosemide 40 mg tablet 40 mg PO DAILY 30 days #30 tabs 07/06/23 [Rx Last Taken Unknown] metoprolol tartrate 25 mg tablet 25 mg PO BID #0 tabs 07/06/23 [Rx Last Taken Unknown] Allergy/AdvReac Type Severity Reaction Status Date / Time diclofenac Allergy rash Verified 07/02/23 17:28 prednisone Allergy Rash Verified 07/02/23 17:28 Family History Father Cancer Prostate cancer Mother Hypertension Sister Hypertension Surgical History History of back surgery History of back surgery History of cardiac catheterization History of cardioversion (06/18/19) History of coronary artery stent placement (08/04/00) History of electrophysiologic study (08/08/00) History of esophagogastroduodenoscopy (EGD) History of hemorrhoidectomy History of hernia repair History of left heart catheterization (07/17/12) History of Zenaida fundoplication History of radiofrequency ablation procedure for cardiac arrhythmia (11/11/11) Social History household members: none Smoking Status: Never smoker alcohol intake: never substance use type: does not use caffeine: No ROS Constitutional Constitutional: Denies chills, fever(s) or weight gain ENT HEENT: Denies headache(s), nasal congestion or nasal discharge Cardiovascular Cardiovascular: Denies chest pain or palpitations Respiratory/Chest Respiratory/Chest: Denies cough, excessive phlegm production or shortness of breath with exertion Gastrointestinal Gastrointestinal: Denies abdominal pain, nausea or vomiting Genitourinary Genitourinary: Denies dysuria Musculoskeletal Musculoskeletal: Denies joint pain or joint swelling Integumentary Integumentary: Denies rash or wounds Neurologic Neurologic: Denies focal weakness, numbness or tingling Psychiatric Psychiatric: Denies anxiety, auditory hallucinations, depression, homicidal ideation or suicidal ideation Physical Exam Narrative Alert and oriented x3, no apparent distress S1, S2, RRR Lung sounds clear anteriorly and posteriorly. No wheezes, rhonchi rales Abdomen soft, nontender trace non-pitting LE edema Lab / Micro Data 07/14/23 05:16 07/13/23 05:23 Labs: Laboratory Results - last 24 hr 07/14/23 05:16: Hgb 8.4 L, Hct 26.8 L, PT 26.5 H, INR 2.4 Micro: Microbiology 07/13/23 15:20 Stool Stool Occult Blood (AUBREE) - Final Occult Blood Positive Assessment & Plan Assessment/Plan (1) Acute blood loss anemia: (2) Stage 3b chronic kidney disease: (3) FE (acute kidney injury): PLAN: Plan Acute Blood Loss Anema Review of medical department labs showed hemoglobin was 7.2. His hemoglobin 3 days ago was 8.5 and 5 days ago was 9.2. His hemoglobin was 13.2. BUN is 43. His BUN about 3 weeks ago was 27. Hold home warfarin and aspirin. He will undergo an upper an lower endosopy. FE on CKD stage IIIb His creatinine presentation was 2.20. His creatinine about 3 weeks ago was 1.74. His creatinine baseline is erratic from 1.74 to about 2.1. 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 2 units of blood was tranfused. Trend BMP Paroxysmal atrial fibrillation In sinus rhythm. Amiodarone continued. Cardizem continued with parameters. Reportedly recently Coumadin dose was decreased because INR was supratherapeutic. On presentation INR is 1.3. Hold Coumadin secondary to acute blood loss anemia. Trend INR. Charges/Coding Visit Charges Inpatient E&M: 90784 SNF Init L2
[2023-07-14] MEDS: Bisacodyl 5 MG Tablet 20 MG PO (16:35)
[2023-07-14] MEDS: Electrolyte Solution/Peg's 4000 ML PO (16:35)
[2023-07-14 21:48] VITALS: BP 146/80; PULSE 109; RESP 16; TEMP 36.4; O2SAT 95
[2023-07-14 21:53] VITALS: BP 146/80; PULSE 109
[2023-07-14] MEDS: Tamsulosin HCl 0.4 MG Capsule PO (21:53)
[2023-07-14] MEDS: MELATONIN 10 MG TABLET PO (21:54)
[2023-07-15] MEDS: Levothyroxine 50 MCG Tablet PO (04:59)
[2023-07-15 06:00] VITALS: BMI 21.9
[2023-07-15] MEDS: Sucralfate 1 GM Tablet PO ×2 (07:56→18:16)
[2023-07-15] MEDS: Cholecalciferol (VIT D3) 25 MCG TABLET (1,000 UNITS) PO (07:57)
[2023-07-15] MEDS: Vitamin B Comp W-C Capsule 1 CAP PO ×2 (07:57→22:56)
[2023-07-15] MEDS: Multivitamins,Therapeutic Tablet 1 TABLET PO (07:57)
[2023-07-15] MEDS: Ascorbic Acid 500 MG Tablet PO (07:57)
[2023-07-15] MEDS: Amiodarone 200 MG Tablet 100 MG PO ×2 (07:58→22:56)
[2023-07-15 08:00] VITALS: BP 142/93; PULSE 99
[2023-07-15] MEDS: Famotidine 20 MG Tablet 40 MG PO (08:00)
[2023-07-15] MEDS: Metoprolol Tartrate 25 MG Tablet PO ×2 (08:00→22:56)
[2023-07-15] MEDS: Finasteride 5 MG Tablet PO (08:01)
[2023-07-15] MEDS: Lidocaine 5% Patch 1 PATCH TOPICAL (12:12)
[2023-07-15] MEDS: Ipratropium/Albuterol Sulfate 3 ML AMPUL.NEB INHALATION (13:20)
[2023-07-15 13:25] VITALS: PULSE 69; RESP 18; O2SAT 93
--- NOTE | 2023-07-15 13:29 | CASEMGMT ---
Social Work SW updated pt that [facility] provided no outcome. [facility] can clinically accept, but needs to ensure financial liability. Pt was screened by [facility]. Medicaid Application submitted. Pt is contacting the home to establish irrevocable trust for burial to appropriately spend down his funds. [facility] provided this worker several documents for pt to complete. [employer] spoke with pt to assist in completing today, but pt is undergoing a medical procedure today and requested this worker return next business day. [employer] did leave paperwork with pt for pt to work on at his leisure. Will follow along with medical stability to determine DC date. Pending [facility] official acceptance. NAUN BeckwithW
--- NOTE | 2023-07-15 15:10 | PCM.HP.BLA ---
History and Physical Date of Admission: 07/15/23 [facility] Medical Records Department [address] [place] [address] Consultation - GI 07/14/23 1628 MR#: [id number] Acct: [id number] Name: RICHIE HANSEN Rep #: [id number] : 1940 83 From: [facility] Friend DO PCP: Dr. César Chinchilla MD Status: ADM IN Location: [place] [address] HPI Consult Data Date of Consult: 07/14/23 HPI Narrative Reason for Consultation: Anemia HPI Narrative: RICHIE HANSEN, is a 83 M who presents to the ED with shortness of breath. He has a history of coronary artery disease with stenting to his LAD in July 2000, atrial fibrillation with pulmonary vein isolation in 2011 and outpatient cardioversion on 06/18/2019, hypertension and hyperlipidemia. His heart catheterization in 2011 demonstrated a patent stent. Patient presented to [facility] in December 2020 for weakness. His EKG showed concern for third-degree heart block. He underwent echocardiogram on 01/21/2021 that showed an ejection fraction of 60%, severely enlarged left atrium, mildly enlarged right atrium, moderately severe mitral valve insufficiency, moderately severe tricuspid valve insufficiency, and mild aortic valve insufficiency. RVSP was noted to 47 mmHg. His EKG was interpreted as atypical or sick atrial flutter with variable AV conduction. His medications were adjusted. He was worked up for shortness of breath. He was discovered to have pneumonia. ACS was ruled out and he was admitted to TCU with debility, here for rehabilitation, strengthening, prior to discharge home alone. He has a history of Iron deficiency Anemia, UGI endoscopy and Pill endoscopy on 06/30/2022 did not show any source of bleeding. Has taken Oral Iron supplements with no improvement so was referred for IV iron replacement. He received Injectafer 1500mg IV. I was called to see him because of a worsening anemia and Hemoccult + stools. [facility] Medical History Acute constipation Acute exacerbation of chronic low back pain Acute gastrointestinal bleeding Acute kidney injury superimposed on chronic kidney disease Ambulates with cane Anemia Arthritis Atherosclerotic heart disease of [place] coronary artery without angina pectoris Atrial fibrillation Atypical atrial flutter (12/2020) Back pain Benign prostatic hyperplasia BPH (benign prostatic hyperplasia) Cancer Cardiology follow-up encounter Chronic anemia Chronic heart failure with preserved ejection fraction (HFpEF) Chronic kidney disease Chronic renal insufficiency Colitis CPAP (continuous positive airway pressure) dependence Debility Diarrhea Difficulty chewing Dysphagia Easy bruising Elevated LFTs Elevated liver enzymes Essential (primary) hypertension Excessive bleeding Gastric reflux GI bleed (2013) Hiatal hernia High cholesterol History of colon polyps History of diverticulitis History of echocardiogram History of edema History of heart attack History of hyperthyroidism History of leukemia History of pain when walking History of renal disease History of stress test HLD (hyperlipidemia) Hypothyroidism Kidney disease Kidney stones Myocardial infarct Nausea and vomiting Non-rheumatic tricuspid valve insufficiency Non-smoker Nonrheumatic mitral (valve) insufficiency 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 Osteoarthritis Paroxysmal atrial fibrillation Secondary pulmonary arterial hypertension Sleep apnea Sleep apnea Stage 3b chronic kidney disease Thoracic aortic aneurysm (TAA) Thyroid disease Wears glasses Home Medications denosumab 60 mg/mL subcutaneous syringe (Prolia) 60 mg SQ .[id number] BONES 12/09/20 [History Last Taken 11/10/22] tamsulosin 0.4 mg capsule 0.4 mg PO QHS bladder 11/18/21 [History Last Taken 06/20/23] levothyroxine 25 mcg tablet 50 mcg PO DAILY thyroid 02/17/22 [History Last Taken 06/21/23] vitamin B complex 1 cap PO BID supplement 05/01/22 [History Last Taken 02/12/23] linaclotide 72 mcg capsule (Linzess) 72 mcg PO DAILY PRN Diarrhea 06/15/22 [History Last Taken Unknown] ascorbic acid (vitamin C) 500 mg tablet 500 mg PO DAILY supplement 07/20/22 [History Last Taken 06/21/23] finasteride 5 mg tablet 5 mg PO DAILY prostate 08/05/22 [History Last Taken 06/21/23] cholecalciferol (vitamin D3) 25 mcg (1,000 unit) capsule (Vitamin D3) 1,000 unit PO DAILY supplement 02/19/23 [History Last Taken Unknown] polyethylene glycol 3350 17 gram oral powder packet 17 g PO DAILY constipation 02/19/23 [History Last Taken Unknown] amiodarone 100 mg tablet 100 mg PO BID heart 02/21/23 [History Last Taken 06/21/23] sucralfate 1 gram tablet 1 g PO TID@0700,1100,1600 stomach 30 days #90 tabs 03/21/23 [Rx Last Taken 06/21/23] famotidine 40 mg tablet 40 mg PO DAILY stomach #30 tabs 04/11/23 [Rx Last Taken Unknown] lactulose 10 gram/15 mL oral solution 10 g (15 mL) PO DAILY constipation 30 days #450 mL 05/18/23 [Rx Last Taken Unknown] loratadine 10 mg tablet (Claritin) 10 mg PO DAILY allergies 06/16/23 [History Last Taken Unknown] warfarin 3 mg tablet (Jantoven) 3 mg PO SuTuThSa@1700 blood thinner #0 tabs 06/21/23 [Rx Last Taken 06/19/23] warfarin 4 mg tablet See Rx Instructions .Route .COMPLEX blood thinner #60 tabs 06/21/23 [Rx Last Taken 06/20/23] acetaminophen 500 mg tablet 1,000 mg (2 x 500 mg) PO Q8 #0 tabs 07/06/23 [Rx Last Taken Unknown] furosemide 40 mg tablet 40 mg PO DAILY 30 days #30 tabs 07/06/23 [Rx Last Taken Unknown] metoprolol tartrate 25 mg tablet 25 mg PO BID #0 tabs 07/06/23 [Rx Last Taken Unknown] Allergy/AdvReac Type Severity Reaction Status Date / Time diclofenac Allergy rash Verified 07/02/23 17:28 prednisone Allergy Rash Verified 07/02/23 17:28 Family History Father Cancer Prostate cancerMother HypertensionSister Hypertension Surgical History History of back surgery History of back surgery History of cardiac catheterization History of cardioversion (06/18/19) History of coronary artery stent placement (08/04/00) History of electrophysiologic study (08/08/00) History of esophagogastroduodenoscopy (EGD) History of hemorrhoidectomy History of hernia repair History of left heart catheterization (07/17/12) History of Zenaida fundoplication History of radiofrequency ablation procedure for cardiac arrhythmia (11/11/11) Social History household members: none Smoking Status: Never smoker alcohol intake: never substance use type: does not use caffeine: No ROS Constitutional Constitutional: Denies chills, fever(s) or weight gain ENT HEENT: Denies headache(s), nasal congestion or nasal discharge Cardiovascular Cardiovascular: Denies chest pain or palpitations Respiratory/Chest Respiratory/Chest: Denies cough, excessive phlegm production or shortness of breath with exertion Gastrointestinal Gastrointestinal: Denies abdominal pain, nausea or vomiting Genitourinary Genitourinary: Denies dysuria Musculoskeletal Musculoskeletal: Denies joint pain or joint swelling Integumentary Integumentary: Denies rash or wounds Neurologic Neurologic: Denies focal weakness, numbness or tingling Psychiatric Psychiatric: Denies anxiety, auditory hallucinations, depression, homicidal ideation or suicidal ideation Physical Exam Narrative Alert and oriented x3, no apparent distress S1, S2, RRR Lung sounds clear anteriorly and posteriorly. No wheezes, rhonchi rales Abdomen soft, nontender trace non-pitting LE edema Lab / Micro Data 07/14/23 05:16 07/13/23 05:23 Labs: Laboratory Results - last 24 hr 07/14/23 05:16: Hgb 8.4 L, Hct 26.8 L, PT 26.5 H, INR 2.4 Micro: Microbiology 07/13/23 15:20 Stool Stool Occult Blood (AUBREE) - Final Occult Blood Positive Assessment & Plan Assessment/Plan (1) Acute blood loss anemia: (2) Stage 3b chronic kidney disease: (3) FE (acute kidney injury): PLAN: Plan Acute Blood Loss Anema Review of medical department labs showed hemoglobin was 7.2. His hemoglobin 3 days ago was 8.5 and 5 days ago was 9.2. His hemoglobin was 13.2. BUN is 43. His BUN about 3 weeks ago was 27. Hold home warfarin and aspirin. He will undergo an upper an lower endosopy. FE on CKD stage IIIb His creatinine presentation was 2.20. His creatinine about 3 weeks ago was 1.74. His creatinine baseline is erratic from 1.74 to about 2.1. 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 2 units of blood was tranfused. Trend BMP Paroxysmal atrial fibrillation In sinus rhythm. Amiodarone continued. Cardizem continued with parameters. Reportedly recently Coumadin dose was decreased because INR was supratherapeutic. On presentation INR is 1.3. Hold Coumadin secondary to acute blood loss anemia. Trend INR. I have examined the patient and the H&P has been reviewed. There are no clinical changes since date of exam.
[2023-07-15 16:00] VITALS: BP 142/93; PULSE 99; RESP 18; TEMP 36.9; O2SAT 94
[2023-07-15] MEDS: Ensure Plus High Protein 120 ML LIQUID PO (18:15)
[2023-07-15] MEDS: 0.9% Saline Lock 10 ML Syringe IV ×2 (18:19→22:58)
[2023-07-15 22:56] VITALS: BP 127/73; PULSE 106
[2023-07-15] MEDS: Tamsulosin HCl 0.4 MG Capsule PO (22:56)
[2023-07-15] MEDS: MELATONIN 10 MG TABLET PO (22:57)
[2023-07-15] MEDS: Acetaminophen 500 MG Tablet 1000 MG PO (22:57)
[2023-07-15] MEDS: MENTHOL 226.8 GM JAR 1 APPLIC TOPICAL (22:57)
[2023-07-15 23:00] VITALS: PULSE 106; RESP 18
[2023-07-16] MEDS: Mag Hydrox/Al Hydrox/Simeth 30 ML UDC PO (01:48)
[2023-07-16] MEDS: LORazepam 0.5 MG Tablet PO (01:49)
[2023-07-16 06:00] VITALS: BMI 22.0
[2023-07-16] MEDS: Sucralfate 1 GM Tablet PO ×3 (06:03→17:00)
[2023-07-16] MEDS: Levothyroxine 50 MCG Tablet PO (06:03)
[2023-07-16] MEDS: Acetaminophen 500 MG Tablet 1000 MG PO ×3 (06:04→21:36)
--- NOTE | 2023-07-16 08:15 | NURSING ---
DR FARNSWORTH UPDATED PER [employer]ER MESSAGE REGARDING PT 3+ PITTING EDEMA TO FEET/LEGS. NEW ORDER TO RESTART LASIX, RECHECK H/H, RESTART COUMADIN PER PREVIOUS ORDERS. WOULD LIKE NEPHROLOGY UPDATED WELL D/T MONITOR KIDNEY STATUS
[2023-07-16 09:30] VITALS: BP 117/60; PULSE 95; RESP 17; TEMP 36.3; O2SAT 98
[2023-07-16] MEDS: Ensure Plus High Protein 120 ML LIQUID PO ×3 (09:37→17:01)
[2023-07-16 09:38] VITALS: BP 117/60; PULSE 95
[2023-07-16 09:38] LABS: Hematocrit 28.1 % (40-54)
[2023-07-16] MEDS: Vitamin B Comp W-C Capsule 1 CAP PO ×2 (09:38→21:36)
[2023-07-16] MEDS: Metoprolol Tartrate 25 MG Tablet PO ×2 (09:38→21:36)
[2023-07-16] MEDS: Famotidine 20 MG Tablet 40 MG PO (09:39)
[2023-07-16] MEDS: Finasteride 5 MG Tablet PO (09:39)
[2023-07-16] MEDS: Amiodarone 200 MG Tablet 100 MG PO ×2 (09:40→21:35)
[2023-07-16] MEDS: Ascorbic Acid 500 MG Tablet PO (09:41)
[2023-07-16] MEDS: Cholecalciferol (VIT D3) 25 MCG TABLET (1,000 UNITS) PO (09:41)
[2023-07-16] MEDS: Multivitamins,Therapeutic Tablet 1 TABLET PO (09:42)
--- NOTE | 2023-07-16 09:42 | NURSING ---
Spoke with Dr Nunez from nephrology and she is ok with pt restarting lasix today d/t weight gain and pitting edema to Bilat feet & face edema.
[2023-07-16] MEDS: Lidocaine 5% Patch 1 PATCH TOPICAL (09:43)
[2023-07-16] MEDS: Furosemide 40 MG Tablet PO (09:45)
[2023-07-16] MEDS: 0.9% Saline Lock 10 ML Syringe IV (11:50)
[2023-07-16 13:20] VITALS: PULSE 76; RESP 18; O2SAT 98
[2023-07-16] MEDS: Ipratropium/Albuterol Sulfate 3 ML AMPUL.NEB INHALATION ×2 (13:20→19:02)
[2023-07-16 17:32] VITALS: PULSE 105; RESP 16; O2SAT 95
[2023-07-16 19:02] VITALS: PULSE 96; RESP 24; O2SAT 93
[2023-07-16 21:36] VITALS: BP 125/75; PULSE 85
[2023-07-16] MEDS: MELATONIN 10 MG TABLET PO (21:36)
[2023-07-16] MEDS: Tamsulosin HCl 0.4 MG Capsule PO (21:36)
[2023-07-17] MEDS: LORazepam 0.5 MG Tablet PO (00:30)
[2023-07-17] MEDS: Mag Hydrox/Al Hydrox/Simeth 30 ML UDC PO (03:55)
[2023-07-17] MEDS: Levothyroxine 50 MCG Tablet PO (05:14)
[2023-07-17] MEDS: Acetaminophen 500 MG Tablet 1000 MG PO ×3 (05:14→21:07)
[2023-07-17] MEDS: Sucralfate 1 GM Tablet PO ×3 (06:14→17:39)
[2023-07-17] MEDS: 0.9% Saline Lock 10 ML Syringe IV (09:37)
[2023-07-17] MEDS: Ensure Plus High Protein 120 ML LIQUID PO ×2 (09:37→17:56)
[2023-07-17] MEDS: Ascorbic Acid 500 MG Tablet PO (09:40)
[2023-07-17] MEDS: Multivitamins,Therapeutic Tablet 1 TABLET PO (09:40)
[2023-07-17] MEDS: Cholecalciferol (VIT D3) 25 MCG TABLET (1,000 UNITS) PO (09:41)
[2023-07-17] MEDS: Lactulose 20 GM/30 ML UDC 10 GM PO (09:41)
[2023-07-17] MEDS: Vitamin B Comp W-C Capsule 1 CAP PO ×2 (09:41→21:07)
[2023-07-17] MEDS: Amiodarone 200 MG Tablet 100 MG PO ×2 (09:42→21:06)
[2023-07-17] MEDS: Furosemide 40 MG Tablet PO (09:43)
[2023-07-17] MEDS: Lidocaine 5% Patch 1 PATCH TOPICAL (09:43)
[2023-07-17 09:45] VITALS: BP 144/90; PULSE 83
[2023-07-17] MEDS: Metoprolol Tartrate 25 MG Tablet PO ×2 (09:45→21:08)
[2023-07-17] MEDS: Finasteride 5 MG Tablet PO (09:46)
[2023-07-17] MEDS: Famotidine 20 MG Tablet 40 MG PO (09:46)
[2023-07-17 09:53] VITALS: BP 144/90; PULSE 83
[2023-07-17 13:30] VITALS: PULSE 99; RESP 24; O2SAT 93
[2023-07-17] MEDS: Ipratropium/Albuterol Sulfate 3 ML AMPUL.NEB INHALATION ×2 (13:30→19:41)
[2023-07-17] MEDS: Loratadine 10 MG Tablet PO (13:40)
--- NOTE | 2023-07-17 14:23 | CPS ---
Patient could not finish treatment, he was coughing and gagging. Nurse aware.
[2023-07-17 14:28] VITALS: BMI 22.6
[2023-07-17 15:00] VITALS: PULSE 85; RESP 18; O2SAT 96
[2023-07-17 19:41] VITALS: PULSE 86; RESP 20
[2023-07-17] MEDS: MENTHOL 226.8 GM JAR 1 APPLIC TOPICAL (21:04)
[2023-07-17] MEDS: Tamsulosin HCl 0.4 MG Capsule PO (21:07)
[2023-07-17 21:08] VITALS: BP 152/91; PULSE 101
[2023-07-17] MEDS: MELATONIN 10 MG TABLET PO (21:09)
[2023-07-18] VITALS (7 sets, daily range): BP systolic 143–166; BP diastolic 97–100; PULSE 90–108; RESP 20–22; TEMP 36.3–36.8; O2SAT 92–93; BMI 22.5
[2023-07-18] MEDS: traMADol 50 MG Tablet PO (01:19)
[2023-07-18] MEDS: Acetaminophen 500 MG Tablet 1000 MG PO ×2 (05:12→14:35)
[2023-07-18] MEDS: Levothyroxine 50 MCG Tablet PO (05:12)
[2023-07-18 05:51] LABS: Hematocrit 25.4 % (40-54); Hemoglobin 7.9 g/dL (13.0-16.5)
[2023-07-18] MEDS: Sucralfate 1 GM Tablet PO ×3 (06:05→16:39)
[2023-07-18 06:09] LABS: International Normalized Ratio 1.7; Prothrombin Time (Protime)PT. 20.3 SECONDS (11.7-14.9)
[2023-07-18] MEDS: MENTHOL 226.8 GM JAR 1 APPLIC TOPICAL (06:24)
[2023-07-18 06:31] LABS: Anion Gap 7 (5-15); BUN 45 mg/dL (7-18); BUN/Creat Ratio 22.4 RATIO (10-20); Calcium,Total 8.3 mg/dL (8.5-10.1); Chloride 106 mmol/L (98-107); Creatinine, Serum 2.01 mg/dL (0.70-1.30); EST Glomerular Filtration Rate 34 mL/min (>60); Est Glom Filt Rate - Afr Amer 41 mL/min (>60); Estimated Creatinine Clearance 27.18 ml/min; Glucose 94 mg/dL (74-106); Potassium 3.4 mmol/L (3.5-5.1); Sodium Level 142 mmol/L (136-145)
[2023-07-18] MEDS: Ipratropium/Albuterol Sulfate 3 ML AMPUL.NEB INHALATION ×2 (06:58→13:08)
[2023-07-18] MEDS: Famotidine 20 MG Tablet 40 MG PO (08:36)
[2023-07-18] MEDS: Lactulose 20 GM/30 ML UDC 10 GM PO (08:37)
[2023-07-18] MEDS: Amiodarone 200 MG Tablet 100 MG PO (08:37)
[2023-07-18] MEDS: Multivitamins,Therapeutic Tablet 1 TABLET PO (08:38)
[2023-07-18] MEDS: Metoprolol Tartrate 25 MG Tablet PO ×2 (08:38→17:47)
[2023-07-18] MEDS: Finasteride 5 MG Tablet PO (08:38)
[2023-07-18] MEDS: Potassium Chloride Oral Tablet 20 MEQ 40 MEQ PO (08:38)
[2023-07-18] MEDS: Vitamin B Comp W-C Capsule 1 CAP PO (08:39)
[2023-07-18] MEDS: Ascorbic Acid 500 MG Tablet PO (08:39)
[2023-07-18] MEDS: Furosemide 40 MG Tablet PO (08:39)
[2023-07-18] MEDS: Ensure Plus High Protein 120 ML LIQUID PO ×3 (08:39→17:50)
[2023-07-18] MEDS: Cholecalciferol (VIT D3) 25 MCG TABLET (1,000 UNITS) PO (08:40)
[2023-07-18] MEDS: Mag Hydrox/Al Hydrox/Simeth 30 ML UDC PO (10:12)
[2023-07-18] MEDS: Iron Polysaccharide Complex 150 MG CAPSULE PO (14:35)
--- NOTE | 2023-07-18 19:37 | NURSING ---
Pt's Heart rate jumping from 50's to 120's pt complaint of feeling unwell BP 154/95. Dr. Samuel updated N.O. to send pt to E.. Report called and pt taken to room 10 in E.. Sister Neelima called and LVM.
== END 2023-07-18 22:20 | disposition home health service (06) | DRG 682 ==
PROVIDERS: Nurse Practitioner Adult Health; Admitting Provider Family Medicine Geriatric Medicine; PCP Family Medicine; Visit Provider Family Medicine Geriatric Medicine
DX: N17.9 Acute kidney failure, unspecified (principal); J18.9 Pneumonia, unspecified organism; I13.0 Hypertensive heart and chronic kidney disease with heart failure and stage 1 through stage 4 chronic kidney disease, or unspecified chronic kidney disease; D62 Acute posthemorrhagic anemia; I50.32 Chronic diastolic (congestive) heart failure; J44.0 Chronic obstructive pulmonary disease with (acute) lower respiratory infection; D63.8 Anemia in other chronic diseases classified elsewhere; I48.0 Paroxysmal atrial fibrillation; N18.32 Chronic kidney disease, stage 3b; E03.9 Hypothyroidism, unspecified; I25.10 Atherosclerotic heart disease of native coronary artery without angina pectoris; J30.9 Allergic rhinitis, unspecified; K21.9 Gastro-esophageal reflux disease without esophagitis; E55.9 Vitamin D deficiency, unspecified; F41.9 Anxiety disorder, unspecified; E78.00 Pure hypercholesterolemia, unspecified; N40.0 Benign prostatic hyperplasia without lower urinary tract symptoms; Z95.5 Presence of coronary angioplasty implant and graft; Z79.899 Other long term (current) drug therapy; Z79.890 Hormone replacement therapy; Z79.01 Long term (current) use of anticoagulants; Z23 Encounter for immunization
CPT/HCPCS: 36415; 71046; 80048; 82274; 83880; 85014; 85018; 85025; 85610; 87633; 87811; 93005; 94640; 97110; 97116; 97162; 97166; 97530; 97535; 97802; J7030; J7050; J7120; 90662; A4216; J2405

== ENCOUNTER 2023-07-02 17:27 | Emergency (ER) | payer MEDICARE, OTHER, SELFPAY ==
[2023-07-02 17:28] VITALS: BP 144/101; PULSE 100; RESP 18; TEMP 36.3; O2SAT 94; BMI 21.1
--- NOTE | 2023-07-02 17:45 | EKG12_ITS ---
Test Reason : DYSRHYTHMIA Blood Pressure : / mmHG Vent. Rate : 091 BPM Atrial Rate : 272 BPM P-R Int : 000 ms QRS Dur : 102 ms QT Int : 368 ms P-R-T Axes : 000 -25 -40 degrees QTc Int : 452 ms Atrial flutter with variable A-V block Incomplete right bundle branch block Minimal voltage criteria for LVH, may be normal variant ( R in aVL ) Nonspecific ST abnormality Abnormal ECG No previous ECGs available Confirmed by JOSE KASPER, JESSICA ([id number]), editor continuity and script MADISON MONTOYA ([id number]) on 07/11/2023 7:02:00 AM Referred By: JAE Confirmed By:CAM GARCIA MD
--- NOTE | 2023-07-02 17:46 | EDS_ITS ---
HPI History of Present Illness Chief Complaint: Palpitations Detail of Chief Complaint: Chest pain and shortness of breath Informant: patient Narrative Narrative: Patient presents to the emergency department complaint of chest pain and shor tness of breath. Patient states that for some time he had some increased shortness of breath. Patient currently in the transitional care unit. Today he went to rehab and was riding a bicycle when he started having chest discomfort. Patient was given 3 sublingual nitros and currently his pain is resolved. Patient does have history of 1 cardiac stent that was placed in 2003. Patient has history of A-fib. He is on Coumadin. Patient also with history of hiatal hernia. [facility] Medical History Acute constipation Acute exacerbation of chronic low back pain Acute gastrointestinal bleeding Acute kidney injury superimposed on chronic kidney disease Ambulates with cane Anemia Arthritis Atherosclerotic heart disease of [place] coronary artery without angina pectoris Atrial fibrillation Atypical atrial flutter (12/2020) Back pain Benign prostatic hyperplasia BPH (benign prostatic hyperplasia) Cancer Cardiology follow-up encounter Chronic anemia Chronic heart failure with preserved ejection fraction (HFpEF) Chronic kidney disease Chronic renal insufficiency Colitis CPAP (continuous positive airway pressure) dependence Debility Diarrhea Difficulty chewing Dysphagia Easy bruising Elevated LFTs Elevated liver enzymes Essential (primary) hypertension Excessive bleeding Gastric reflux GI bleed (2012) Hiatal hernia High cholesterol History of colon polyps History of diverticulitis History of echocardiogram History of edema History of heart attack History of hyperthyroidism History of leukemia History of pain when walking History of renal disease History of stress test HLD (hyperlipidemia) Hypothyroidism Kidney disease Kidney stones Myocardial infarct Nausea and vomiting Non-rheumatic tricuspid valve insufficiency Non-smoker Nonrheumatic mitral (valve) insufficiency 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 Osteoarthritis Paroxysmal atrial fibrillation Secondary pulmonary arterial hypertension Sleep apnea Sleep apnea Stage 3b chronic kidney disease Thoracic aortic aneurysm (TAA) Thyroid disease Wears glasses Home Medications denosumab 60 mg/mL subcutaneous syringe (Prolia) 60 mg SQ .[id number] BONES 12/09/20 [History Last Taken 11/10/22] tamsulosin 0.4 mg capsule 0.4 mg PO QHS bladder 11/18/21 [History Last Taken 06/20/23] levothyroxine 25 mcg tablet 50 mcg PO DAILY thyroid 02/17/22 [History Last Taken 06/21/23] coenzyme Q10 100 mg capsule (Co Q-10) 100 mg PO DAILY supplement 05/01/22 [History Last Taken 02/12/23] vitamin B complex 1 cap PO BID supplement 05/01/22 [History Last Taken 02/12/23] acetaminophen 500 mg capsule 1,000 mg PO Q6H PRN Pain 06/15/22 [History Last Taken Unknown] linaclotide 72 mcg capsule (Linzess) 72 mcg PO DAILY PRN Diarrhea 06/15/22 [History Last Taken Unknown] ascorbic acid (vitamin C) 500 mg tablet 500 mg PO DAILY supplement 07/20/22 [History Last Taken 06/21/23] finasteride 5 mg tablet 5 mg PO DAILY prostate 08/05/22 [History Last Taken 06/21/23] multivitamin 1 tab PO DAILY supplement 08/16/22 [History Last Taken 02/12/23] furosemide 40 mg tablet 40 mg PO BID PRN Weight Gain 11/25/22 [History Last Taken Unknown] diltiazem HCl 120 mg capsule,extended release 24 hr 120 mg PO BID heart #60 caps 11/30/22 [Rx Last Taken 02/12/23] cholecalciferol (vitamin D3) 25 mcg (1,000 unit) capsule (Vitamin D3) 1,000 unit PO DAILY supplement 02/19/23 [History Last Taken Unknown] isosorbide mononitrate 30 mg tablet,extended release 24 hr 30 mg PO BID heart 02/19/23 [History Last Taken Unknown] polyethylene glycol 3350 17 gram oral powder packet 17 g PO DAILY constipation 02/19/23 [History Last Taken Unknown] vitamin A 7,500 mcg (25,000 unit) capsule 25,000 unit PO DAILY supplement 02/19/23 [History Last Taken Unknown] amiodarone 100 mg tablet 100 mg PO BID heart 02/21/23 [History Last Taken 06/21/23] [id number] 36,000-114,000-180,000 unit capsule,delay rel (Creon) See Rx Instructions PO .COMPLEX digestion 02/21/23 [History Last Taken Unknown] ondansetron 4 mg disintegrating tablet 4 mg PO Q8H PRN PRN Nausea And Vomiting 30 days #90 tabs 03/21/23 [Rx Last Taken Unknown] pantoprazole 40 mg tablet,delayed release 40 mg PO DAILY stomach 30 days #30 tabs 03/21/23 [Rx Last Taken 06/21/23] sucralfate 1 gram tablet 1 g PO TID@0700,1100,1600 stomach 30 days #90 tabs 03/21/23 [Rx Last Taken 06/21/23] famotidine 40 mg tablet 40 mg PO DAILY stomach #30 tabs 04/11/23 [Rx Last Taken Unknown] lidocaine 5 % topical patch 1 patch topical DAILY pain 05/05/23 [History Last Taken Unknown] magnesium citrate 300 ml PO DAILY PRN constipation #296 mL 05/07/23 [Rx Last Taken Unknown] lactulose 10 gram/15 mL oral solution 10 g (15 mL) PO DAILY constipation 30 days #450 mL 05/18/23 [Rx Last Taken Unknown] warfarin 2 mg tablet See Rx Instructions PO .COMPLEX blood thinner #90 tabs 05/27/23 [Rx Last Taken Unknown] loratadine 10 mg tablet (Claritin) 10 mg PO DAILY allergies 06/16/23 [History Last Taken Unknown] metoprolol tartrate 25 mg tablet 25 mg PO BID heart #180 tabs 06/20/23 [Rx Last Taken Unknown] warfarin 3 mg tablet (Jantoven) 3 mg PO SuTuThSa@1700 blood thinner #0 tabs 06/21/23 [Rx Last Taken 06/19/23] warfarin 4 mg tablet See Rx Instructions .Route .COMPLEX blood thinner #60 tabs 06/21/23 [Rx Last Taken 06/20/23] Allergy/AdvReac Type Severity Reaction Status Date / Time diclofenac Allergy rash Verified 07/02/23 17:28 prednisone Allergy Rash Verified 07/02/23 17:28 Family History Father Cancer Prostate cancer Mother Hypertension Sister Hypertension Surgical History History of back surgery History of back surgery History of cardiac catheterization History of cardioversion (06/18/19) History of coronary artery stent placement (08/04/00) History of electrophysiologic study (08/08/00) History of esophagogastroduodenoscopy (EGD) History of hemorrhoidectomy History of hernia repair History of left heart catheterization (07/17/12) History of Zenaida fundoplication History of radiofrequency ablation procedure for cardiac arrhythmia (03/15/12) Social History household members: none Smoking Status: Never smoker alcohol intake: never substance use type: does not use caffeine: No ROS ROS ED Review of Systems ROS Unobtainable: other Constitutional Constitutional ED: Reports lethargy; Denies chills, fever(s), sweats or weight loss Eyes Eyes: Denies blurry vision, change in vision or diplopia ENT ENT ED: Denies rhinorrhea or sore throat Cardiovascular Cardiovascular: Reports chest pain and racing heartbeat; Denies orthopnea Respiratory/Chest Respiratory/Chest: Reports dyspnea and dyspnea on exertion; Denies cough, orthopnea or sputum Gastrointestinal Gastrointestinal: Denies abdominal pain, diarrhea, nausea or vomiting Genitourinary Genitourinary ED: Denies dysuria, hematuria or urinary frequency Musculoskeletal Musculoskeletal: Denies arthralgias, back pain, myalgias or neck pain Integumentary Denies abscess, Abrasions or rash Neurologic Neurologic: Denies headache(s) or weakness Psychiatric Psychiatric: Denies anxiety, depression or suicidal thoughts Endocrine Endocrinology: Denies polydipsia, polyphagia or polyuria Hematologic/Lymphatic Hematologic/Lymphatic: Denies easy bleeding, easy bruising or lymphadenopathy Allergic/Immunologic Allergic/Immunologic ED: Denies mouth swelling, tongue swelling or urticaria EXAM Physical Exam Const Vital Signs: 07/02/23 17:28 07/02/23 17:48 07/02/23 18:57 Temperature 97.3 F L Temperature Source Temporal Pulse Rate 100 96 Respiratory Rate 18 14 Blood Pressure 144/101 H 144/101 H Blood Pressure Mean 115 115 Pulse Ox 94 99 Oxygen Delivery Method Room Air Room Air Room Air 07/02/23 19:17 Temperature Temperature Source Pulse Rate 100 Respiratory Rate 18 Blood Pressure 142/108 H Blood Pressure Mean 119 Pulse Ox 96 Oxygen Delivery Method Room Air Positive well nourished and well developed General Appearance ED: well developed and NAD HEENT Reports TM's clear and moist mucous membranes normocephalic and atraumatic; Negative for trauma or tenderness Tympanic Membrane ED: Yes TM's clear Eyes PERRL and EOMs intact bilaterally General Eye ED: Negative for pale conjunctiva or scleral icterus Neck no lymphadenopathy, supple and no JVD General: Negative for tenderness Chest Wall inspection of chest normal and palpation of chest normal Chest: Negative for tenderness Resp normal respiratory effort and clear to auscultation bilaterally Effort and Inspection: Negative for respiratory distress or pain with movement Auscultation: Negative for rhonchi, wheezes or diminished lung sounds Cardio S1 normal heart sound, S2 normal heart sound and no murmurs Rate: tachycardic and other Rhythm: abnormal rhythm irregularly irregular Peripheral Pulses: pulses 2+ throughout GI normal to inspection, nondistended, normoactive bowel sounds, soft to palpation, non-tender, non-distended and no masses Back/Spine no CVA tenderness and no thoracic nor lumbar tenderness Extremity normal to inspection General Extremety ED: Negative for edema General Extremity: Negative for edema Neuro oriented x3, CN's II-XII intact bilaterally, no sensory deficits noted and gait normal Sensorium / Orientation: awake, alert, oriented to person, oriented to place and oriented to time Motor Exam: strength 5/5 throughout and strength abnormal Psych mental status grossly normal Skin no rashes or lesions noted and no wounds MDM MDM MDM Narrative Medical decision making narrative: Patient presents with complaint of shortness of breath and racing heart after doing physical therapy and being on a bicycle. He denied any chest pain. Patient has history of atrial fibrillation. Patient currently in the transitional care unit. Patient apparently did receive nitroglycerin prior to coming down but he denied having chest pain. IV line established on arrival. Patient was placed on monitoring and evaluation advisor. In the differential would be acute coronary syndrome versus uncontrolled A-fib. Patient on Coumadin therefore PE less likely. EKG obtained on arrival showed atrial flutter with a rate of 91 bpm with incomplete right bundle branch block and nonspecific ST changes. CBC with differential showed a white count of 9.6 and hemoglobin 11.1 with platelet count of 258. Karishma is unremarkable. BUN 44 and creatinine 2.23. Troponin was normal at 31. Delta troponin 2 hours later normal at 30. 1 view chest x- ray obtained showed no acute process. On repeat evaluation patient resting comfortably and has no complaints. I feel he can be discharged back to the transitional care unit. Lab Data Attestation: I reviewed the patient's lab results. Labs: Laboratory Results - last 24 hr 07/02/23 07/02/23 18:00 20:15 WBC 9.6 RBC 3.29 L Hgb 11.1 L Hct 34.1 L MCV 103.6 H MCH 33.7 H MCHC 32.6 RDW Std Deviation 80.6 H RDW Coeff of Pablo 21.6 H Plt Count 258 MPV 9.9 Immature Gran % (Auto) 0.500 Neut % (Auto) 83.9 H Lymph % (Auto) 6.7 L [place] % (Auto) 7.6 Eos % (Auto) 0.8 Baso % (Auto) 0.5 Absolute Neuts (auto) 8.0 H Absolute Lymphs (auto) 0.64 L Nucleated RBC % 0 Platelet Estimate ADEQUATE RBC Morphology N CHROM Anisocytosis 2+ Macrocytosis 2+ Ovalocytes RARE PT 30.1 H INR 2.8 Sodium 141 Potassium 3.8 Chloride 107 Carbon Dioxide 29.0 Anion Gap 5 BUN 44 H Creatinine 2.23 H Estim Creat Clear Calc 22.76 Est GFR (MDRD) Af Amer 37 L Est GFR (MDRD) Non-Af 30 L BUN/Creatinine Ratio 19.7 Glucose 110 H Calcium 8.2 L Troponin I High Sens 31 30 Radiography Diagnostic Testing: Clinical Impression(s) from Imaging Studies Chest X-Ray 07/02/23 18:15 IMPRESSION: No change from prior study. Electronically Signed: Tai Bryant MD at 18:50 EDT , 1 view chest x-ray obtained interpreted by myself as no evidence of infiltrate or pneumothorax or acute disease process. Radiology in agreement. EKG Initial EKG: Attestation: I personally reviewed and interpreted this EKG as follows: Comments: With veryAtrial flutter double AV block and incomplete right bundle branch block as well as nonspecific ST changes Discharge Plan Triage Chief Complaint: Palpitations ED Provider: uArora Dwyer Dx/Rx/DC Orders Clinical Impression: Acute dyspnea, Atrial flutter Instructions: ED AFIB, ED Dyspnea Prescriptions: No Action tamsulosin 0.4 mg capsule 0.4 mg PO QHS levothyroxine 25 mcg tablet 50 mcg PO DAILY Patient Comments: take 1 tablet by mouth once daily acetaminophen 500 mg capsule 1,000 mg PO Q6H PRN (Reason: Pain) Linzess 72 mcg capsule 72 mcg PO DAILY PRN (Reason: Diarrhea) Hold Instructions: Resume on 02/22/23. Restart on Discharge from U ascorbic acid (vitamin C) 500 mg tablet 500 mg PO DAILY finasteride 5 mg tablet 5 mg PO DAILY lidocaine 5 % adhesive patch,medicated 1 patch topical DAILY Rx Instructions: leave on most painful area for up to 12 hrs Prolia 60 MG/ML syringe 60 mg SQ .[id number] vitamin B complex Capsule 1 cap PO BID coenzyme Q10 [Co Q-10] 100 mg Capsule 100 mg PO DAILY multivitamin Tablet 1 tab PO DAILY vitamin A 7,500 mcg (25,000 unit) Capsule 25,000 unit PO DAILY polyethylene glycol 3350 17 gram Powder In Packet 17 g PO DAILY isosorbide mononitrate 30 mg tablet extended release 24 hr 30 mg PO BID Hold Instructions: Resume on 06/29/23. cholecalciferol (vitamin D3) [Vitamin D3] 25 mcg (1,000 unit) Capsule 1,000 unit PO DAILY amiodarone 100 mg tablet 100 mg PO BID Creon 36,000-114,000- 180,000 unit capsule,delayed release(DR/EC) See Rx Instructions PO .COMPLEX Rx Instructions: take 1-2 with snacks and 2-3 with meals sucralfate 1 gram Tablet 1 g PO TID@0700,1100,1600 30 Days Qty: 90 0RF pantoprazole 40 mg Tablet,Delayed Release (Dr/Ec) 40 mg PO DAILY 30 Days Qty: 30 0RF ondansetron 4 mg Tablet,Disintegrating 4 mg PO Q8H PRN PRN (Reason: Nausea And Vomiting) 30 Days Qty: 90 0RF magnesium citrate Solution 300 ml PO DAILY PRN (Reason: constipation) Qty: 296 0RF Rx Instructions: Drink half the bottle. If no significant stool results within 3 hours, drink the remainder of the bottle. loratadine [Claritin] 10 mg tablet 10 mg PO DAILY warfarin [Jantoven] 3 mg Tablet 3 mg PO SuTuThSa@1700 Qty: 0 0RF warfarin 4 mg tablet See Rx Instructions .Route .COMPLEX Qty: 60 0RF Protocol: Dose Management Condition: Tuesday Dose/Route: 4 mg Instruction: 1 x 4 mg tablet Condition: Tuesday Dose/Route: 4 mg Instruction: 1 x 4 mg tablet Condition: Tuesday Dose/Route: 4 mg Instruction: 1 x 4 mg tablet Condition: Tuesday Dose/Route: 4 mg Instruction: 1 x 4 mg tablet Condition: Dose/Route: 2 mg Instruction: 1 x 2 mg tablet Condition: Tuesday Dose/Route: 2 mg Instruction: 1 x 2 mg tablet Condition: Tuesday Dose/Route: 2 mg Instruction: 1 x 2 mg tablet Protocol Text: Adjustment Start Date: Tuesday06/17/23 INR Value: 1.7 INR Date: 06/17/23 Recheck Date: 06/24/23 Rx Instructions: 4mg Tue, Tue, Tue. 3mg Tue, , Sat orally; furosemide 40 mg tablet 40 mg PO BID PRN (Reason: Weight Gain) Hold Instructions: Resume on 06/29/23. Rx Instructions: as needed for weight gain of 3# in one day diltiazem HCl 120 mg capsule,extended release 24hr 120 mg PO BID Qty: 60 11RF Hold Instructions: Resume on 06/29/23. famotidine 40 mg tablet 40 mg PO DAILY Qty: 30 11RF lactulose 10 gram/15 mL solution 10 g PO DAILY 30 Days Qty: 450 0RF Rx Instructions: take once a day and can take up to 2 more times in a day as needed for constipation warfarin 2 mg tablet See Rx Instructions PO .COMPLEX Qty: 90 3RF Protocol: Dose Management Condition: Tuesday Dose/Route: 4 mg Instruction: 1 x 4 mg tablet Condition: Tuesday Dose/Route: 4 mg Instruction: 1 x 4 mg tablet Condition: Tuesday Dose/Route: 4 mg Instruction: 1 x 4 mg tablet Condition: Tuesday Dose/Route: 4 mg Instruction: 1 x 4 mg tablet Condition: Dose/Route: 2 mg Instruction: 1 x 2 mg tablet Condition: Tuesday Dose/Route: 2 mg Instruction: 1 x 2 mg tablet Condition: Tuesday Dose/Route: 2 mg Instruction: 1 x 2 mg tablet Protocol Text: Adjustment Start Date: Tuesday06/17/23 INR Value: 1.7 INR Date: 06/17/23 Recheck Date: 06/24/23 Patient Comments: Adjustment 01/03. Pt to take 2mg Wednesday 01/03, 2mg Thursday 01/04. Retest 01/05. Rx Instructions: 4mg Tue, Tue, Tue. 2mg Tue, , , Sat orally; metoprolol tartrate 25 mg tablet 25 mg PO BID Qty: 180 3RF Hold Instructions: Resume on 06/24/23. Primary Care Provider: César Chinchilla Referrals: César Chinchilla MD [Primary Care Provider] - 3-5 Days Disposition Disposition: Home, Self Care
[2023-07-02 18:09] LABS: Absolute Lymphocyte Count 0.64 X10^3/uL (0.83-4.51); Basophil# 0.05 X10^3/uL; Basophil% 0.5 % (0-1); Eosinophil# 0.08 X10^3/uL; Eosinophils% 0.8 % (0-5); Hematocrit 34.1 % (40-54); Hemoglobin 11.1 g/dL (13.0-16.5); Lymphocyte # 0.64 X10^3/ul (0.83-4.51); Lymphocyte % 6.7 % (19-41); Mean Corp Hgb Conc 32.6 g/dL (32-36); Mean Corpuscular Hgb 33.7 pg (27.0-32.0); Mean Corpuscular Volume 103.6 fL (80-94); Mean Platelet Vol. 9.9 fl (6.2-12.0); Monocyte# 0.73 X10^3/uL; Monocyte% 7.6 % (0-10); NRBC Flagged by Analyzer 0 % (0-5); Neutrophil # 8.04 X10^3/uL (2.7-7.7); Neutrophil % 83.9 % (47-70); POSITIVE MORPHOLOGY YES; Platelet Count 258 K/mm3 (150-450); RBC Distribution Width CV 21.6 % (11.6-14.6); RBC Distribution Width SD 80.6 fl (35.1-43.9); Red Blood Count 3.29 M/mm3 (4.6-6.2); White Blood Count 9.6 K/mm3 (4.4-11.0)
--- NOTE | 2023-07-02 18:15 | RAD_ITS ---
INDICATION: chest pain EXAMINATION/TECHNIQUE: X-RAY - XR Chest 1 View COMPARISON: 06/30/2023. FINDINGS: The lungs are unchanged. The cardiomediastinal silhouette is stable. No pneumothorax. The osseous structures are unchanged. RAD/Chest 1 View (Portable) IMPRESSION: No change from prior study. Electronically Signed: Tai Bryant MD at 18:50 EDT ,
[2023-07-02] MEDS: Aspirin 81 MG TAB.CHEW 324 MG PO (18:18)
[2023-07-02] MEDS: 0.9% Normal Saline (1000mL) 1,000 ML 150 ML IV (18:18)
[2023-07-02 18:28] LABS: Anion Gap 5 (5-15); BUN 44 mg/dL (7-18); BUN/Creat Ratio 19.7 RATIO (10-20); Calcium,Total 8.2 mg/dL (8.5-10.1); Chloride 107 mmol/L (98-107); Creatinine, Serum 2.23 mg/dL (0.70-1.30); EST Glomerular Filtration Rate 30 mL/min (>60); Est Glom Filt Rate - Afr Amer 37 mL/min (>60); Estimated Creatinine Clearance 22.76 ml/min; Glucose 110 mg/dL (74-106); Potassium 3.8 mmol/L (3.5-5.1); Sodium Level 141 mmol/L (136-145); Troponin-I HS (w/2H Reflex) 31 pg/mL (3.0-78.0)
[2023-07-02 18:40] LABS: Differential Indicated SCAN CRITERIA MET
[2023-07-02 18:42] LABS: Anisocytosis 2+; Macrocytosis 2+; Ovalocyte RARE; Platelet Estimate ADEQUATE (ADEQ); Red Cell Morphology N CHROM NORMAL (NORM C&C)
[2023-07-02 18:57] VITALS: BP 144/101; PULSE 96; RESP 14; O2SAT 99
[2023-07-02 19:11] LABS: International Normalized Ratio 2.8; Prothrombin Time (Protime)PT. 30.1 SECONDS (11.7-14.9)
[2023-07-02 19:17] VITALS: BP 142/108; PULSE 100; RESP 18; O2SAT 96
[2023-07-02 20:06] LABS: Reflex Troponin-HS? (from REC) Y
[2023-07-02 20:33] LABS: Troponin-I HS 30 pg/mL (3.0-78.0)
--- NOTE | 2023-07-02 20:51 | ED.RN ---
called report to TCU
== END 2023-07-02 20:55 | disposition skilled nursing facility (03) ==
PROVIDERS: Emergency Provider Emergency Medicine; PCP Family Medicine; Visit Provider Emergency Medicine
DX: I48.92 Unspecified atrial flutter (principal); I50.32 Chronic diastolic (congestive) heart failure; I13.0 Hypertensive heart and chronic kidney disease with heart failure and stage 1 through stage 4 chronic kidney disease, or unspecified chronic kidney disease; I48.0 Paroxysmal atrial fibrillation; N18.32 Chronic kidney disease, stage 3b; I25.10 Atherosclerotic heart disease of native coronary artery without angina pectoris; E78.00 Pure hypercholesterolemia, unspecified; Z95.5 Presence of coronary angioplasty implant and graft; R06.00 Dyspnea, unspecified; Z79.01 Long term (current) use of anticoagulants; Z99.89 Dependence on other enabling machines and devices; I25.2 Old myocardial infarction; E03.9 Hypothyroidism, unspecified; N40.0 Benign prostatic hyperplasia without lower urinary tract symptoms; K21.9 Gastro-esophageal reflux disease without esophagitis; Z79.899 Other long term (current) drug therapy
CPT/HCPCS: 71045; 80048; 84484; 85025; 85610; 93005; 96360; 96361; 99284; J7030; A4216

== ENCOUNTER → 2023-07-05 | Outpatient (CLI) | payer MEDICARE, OTHER, SELFPAY ==
--- NOTE | 2023-07-05 15:35 | CT_ITS ---
STUDY: CTA CHEST REASON FOR EXAM: Male, 83 years old. SOB RADIATION DOSAGE (If Supplied By Facility): CTDIvol = ( 12.21 ) mGy, DLP = ( 451.76 ) mGycm TECHNIQUE: The examination was performed with the intravenous administration of IV 100mL Isovue-300. Post-processing of the angiographic images was performed, with multiplanar reformation and 3D reconstruction. Individualized dose optimization techniques were used for this CT. COMPARISON: FINDINGS: Normal enhancement of the main pulmonary artery and right and left pulmonary arteries. Normal enhancement of the bilateral peripheral pulmonary arteries. There is no demonstrated pulmonary embolism. Dilated ascending aorta measuring 4.2 cm. There is no demonstrated aortic dissection. Left atrial enlargement. Subcentimeter nodes in the mediastinum. Left hilar granulomatous calcifications. Normal visualized trachea and bronchi. The lungs are well expanded. Patchy groundglass densities/infiltrates and interstitial prominence. Bilateral pleural calcifications. Bilateral mild pleural effusions. Normal chest wall structures. Degenerative vertebral changes. Compression of multiple mid and lower vertebral segments as well as previous vertebroplasty at multiple levels. Atrophic kidneys with bilateral renal cysts. CT/CTA Chest W/WO Contrast IMPRESSION: No demonstrated pulmonary embolism or arterial dissection. Dilated ascending aorta. Left atrial enlargement. Patchy groundglass densities/infiltrates and interstitial prominence. Bilateral pleural calcifications. Bilateral mild pleural effusions. Electronically Signed: Archie Maradiaga DO at 17:08 EST ,
== END | disposition home or self-care (01) ==
LOC: CT 15:34
PROVIDERS: PCP Family Medicine; Visit Provider Family Medicine Geriatric Medicine
DX: R06.02 Shortness of breath (principal)
CPT/HCPCS: 71275; Q9967

== ENCOUNTER 2023-07-18 09:49 | Day surgery (SDC) | payer MEDICARE, OTHER, SELFPAY ==
[2023-07-15] VITALS (7 sets, daily range): BP systolic 101–143; BP diastolic 67–96; PULSE 84–104; RESP 16–18; TEMP 36.8–37.1; O2SAT 93–97; BMI 21.6
--- NOTE | 2023-07-15 | IMM_PTH ---
PATIENT: RICHIE HANSEN LOC: EN U#:[id number] AGE/SX: 83/M ROOM: RE07/18/[address]: Dr. Mika Hodges DO : 1940 BED: DIS: 07/18/2023 SPEC #: [id number] RECD: 07/19/23 12:32 STATUS: RADHA REElizabeth #: [id number] BARRIE: 07/15/23 00:[address]: Mika Hodges DEPT: IMMUNOHISTOCHEMISTRY RECD BY: Nilsa Haji ENTERED: 07/19/23 12:33 SP TYPE: IMMUNO OTHR DR: Dr. César Chinchilla MD Tissues: Stomach, NOS Procedures: P53 (initial) KI-67 (add) MOC-31 (add) PHYSICIAN & INSTITUTION [place] [address] SPECIMEN INFORMATION: Tissue Source: Gastric body polyps Clinical Info: Anemia, dysphagia Specimen Number: [id number] CPT code: 21819, 04409 x2 METHODOLOGY: Deparaffinized sections of prefer/formalin-fixed tissue or PAP/DQ stained slides are incubated with monoclonal/polyclonal antibodies/oligonucleotide probes. Localization is made via biotin free immunoperoxidase method. Appropriate controls are performed and reacted as expected. Results on target cell population are indicated in the following table: RESULTS: ANTIBODY / CLONE RESULT P53 (DO-7) negative, null pattern Ki-67 (30-9) positive, low MOC-31 (4561) positive These tests were developed and their performance characteristics determined by [facility]. They may not have been cleared or approved by the U.S. Food and Drug Administration. The FDA has determined that such clearance or approval is not necessary. The above immunohistochemical/dualISH markers are ordered and reviewed by the Pathologist. INTERPRETATION: Gastric body polyps, biopsy: Polyp with intestinal metaplasia. AM:tracy 07/20/2023
--- NOTE | 2023-07-15 16:00 | EGD_PTH ---
PATIENT: RICHIE HANSEN LOC: EN U#:[id number] AGE/SX: 83/M ROOM: RE07/18/[address]: Dr. Mika Hodges DO : 1940 BED: DIS: 07/18/2023 SPEC #: [id number] RECD: 07/18/23 07:51 STATUS: RADHA DAVID #: [id number] BARRIE: 07/15/23 16:[address]: Mika Hodges DEPT: SURGICAL PATHOLOGY RECD BY: Mali Leigh ENTERED: 07/18/23 07:51 SP TYPE: EGD BIOPSY OT DR: Dr. César Chinchilla MD Tissues: Gastric mucous membrane Procedures: Special Stain Group II Surgery Specimen Level IV Alcian Blue/PAS (control) HEADER OPERATION: Colonoscopy, EGD with polypectomy PRE-OP DIAGNOSIS: Anemia, dysphagia TISSUE SUBMITTED: Gastric body polyp MICROSCOPIC DIAGNOSIS Gastric body polyp, biopsy: Hyperplastic change. Cautery artifact. Intestinal metaplasia. No evidence of dysplasia. See comment. AM:tracy 07/19/2023 COMMENT Immunohistochemistry ([id number]) for P53 and Ki-67 will be performed and results will be reported separately. Alcian blue/PAS stain with matched control supports the above diagnosis. MICROSCOPIC DESCRIPTION Slides are reviewed. GROSS DESCRIPTION Received in fixative is one container labeled with the patient's name and designated gastric body polyp. The specimen consists of one irregular fragment of light ludwig soft tissue that measures 0.6 x 0.5 x 0.2 cm. The specimen is totally submitted in one cassette. / AM:tracy 07/18/2023 TC:5 CPT: 21771, 23439
--- NOTE | 2023-07-15 16:05 | OP.EGD_ITS ---
Patient Name: Balbir Mckeon Procedure Date: 07/15/2023 3:09 PM Date of : 1940 Age: 83 Procedure: Upper GI endoscopy Indications: Iron deficiency anemia, Dysphagia Providers: Mika Hodges DO Medicines: Monitored Anesthesia Care Patient Profile: This is an 83 year old male. Refer to note in patient chart for documentation of history and physical. Patient has symptoms of dysphagia with both liquids and solids. Complications: No immediate complications. Procedure: Pre-Anesthesia Assessment: - Prior to the procedure, a History and Physical was performed, and patient medications and allergies were reviewed. The patient is competent. The risks and benefits of the procedure and the sedation options and risks were discussed with the patient. All questions were answered and informed consent was obtained. Patient identification and proposed procedure were verified by the physician. Mental Status Examination: alert and oriented. Airway Examination: normal oropharyngeal airway and neck mobility. Respiratory Examination: clear to auscultation. Prophylactic Antibiotics: The patient does not require prophylactic antibiotics. Prior Anticoagulants: The patient has taken no anticoagulant or antiplatelet agents. After reviewing the risks and benefits, the patient was deemed in satisfactory condition to undergo the procedure. The anesthesia plan was to use minimal sedation / analgesia (anxiolysis). Immediately prior to administration of medications, the patient was re-assessed for adequacy to receive sedatives. The heart rate, respiratory rate, oxygen saturations, blood pressure, adequacy of pulmonary ventilation, and response to care were monitored throughout the procedure. The physical status of the patient was re-assessed after the procedure. After obtaining informed consent, the endoscope was passed under direct vision. Throughout the procedure, the patient's blood pressure, pulse, and oxygen saturations were monitored continuously. The Colonoscope was introduced through the mouth, and advanced to the second part of duodenum. The upper GI endoscopy was accomplished without difficulty. The patient tolerated the procedure well. Scope In: 3:22:51 PM Scope Out: 3:30:33 PM Total Procedure Duration Time 0 hours 7 minutes 42 seconds Findings: The lower third of the esophagus was significantly tortuous. One benign-appearing, intrinsic severe stenosis was found 37 to 39 cm from the incisors. The stenosis was traversed. A guidewire was placed and the scope was withdrawn. Dilation was performed with a Savary dilator with no resistance at 51 Fr. The dilation site was examined and showed mild improvement in luminal narrowing. Estimated blood loss was minimal. A large hiatal hernia was present. A single 9 mm sessile polyp with bleeding and stigmata of recent bleeding was found in the gastric body. The polyp was removed with a saline injection-lift technique using a hot snare. Resection and retrieval were complete. Verification of patient identification for the specimen was done. Estimated blood loss was minimal. The first portion of the duodenum was normal. Impression: - Tortuous esophagus. - Benign-appearing esophageal stenosis. Dilated. - Large hiatal hernia. - A single gastric polyp. Resected and retrieved. - Normal first portion of the duodenum. Recommendation: - [facility]. - Resume previous diet. - Continue present medications. - Await pathology results. 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 Procedure Code(s): --- Professional --- 86959, Esophagogastroduodenoscopy, flexible, transoral; with removal of tumor(s), polyp(s), or other lesion(s) by snare technique 14229, 51, Esophagogastroduodenoscopy, flexible, transoral; with insertion of guide wire followed by passage of dilator(s) through esophagus over guide wire 67522, 59, Esophagogastroduodenoscopy, flexible, transoral; with directed submucosal injection(s), any substance CPT copyright 2021 [employer]. All rights reserved. The codes documented in this report are preliminary and upon feed mill tender review may be revised to meet current compliance requirements. Mika Hodges DO 07/15/2023 4:04:40 PM This report has been signed electronically. Number of Addenda: 0 Note Initiated On: 07/15/2023 3:09 PM
--- NOTE | 2023-07-15 16:05 | OP.CCLET_ITS ---
07/15/2023 César Chinchilla [address] [place] [address] Re : Upper GI endoscopy procedure for Balbir Mckeon Dear Dr. Chinchilla This procedure was performed on Saturday, July 15, 2023. My impressions and recommendations are as follows: Impressions : - Tortuous esophagus. - Benign-appearing esophageal stenosis. Dilated. - Large hiatal hernia. - A single gastric polyp. Resected and retrieved. - Normal first portion of the duodenum. Recommendations : - [facility] to [facility]. - Resume previous diet. - Continue present medications. - Await pathology results. 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 My findings are described in the full procedure note, which is enclosed. If I can be of further assistance, please feel free to contact me at . Sincerely, Mika Hodges, 07/15/2023 4:04:40 PM This report has been signed electronically.
--- NOTE | 2023-07-15 16:07 | OP.CCLET_ITS ---
07/15/2023 César Chinchilla [address] [place] [address] Re : Colonoscopy procedure for Balbir Mckeon Dear Dr. Chinchilla This procedure was performed on Saturday, July 15, 2023. My impressions and recommendations are as follows: Impressions : - Preparation of the colon was fair. - Hemorrhoids found on perianal exam. - Diverticulosis in the entire examined colon. - The examination was otherwise normal on direct and retroflexion views. - Stool in the recto-sigmoid colon, in the sigmoid colon, at the hepatic flexure and in the ascending colon. - No specimens collected. Recommendations : - Resume previous diet. - Continue present medications. - No repeat colonoscopy due to age. My findings are described in the full procedure note, which is enclosed. If I can be of further assistance, please feel free to contact me at . Sincerely, Mika Hodges, 07/15/2023 4:07:20 PM This report has been signed electronically.
--- NOTE | 2023-07-15 16:07 | OP.COLON_ITS ---
Patient Name: Balbir Mckeon Procedure Date: 07/15/2023 3:30 PM Date of : 1940 Age: 83 Procedure: Colonoscopy Indications: Iron deficiency anemia Providers: Mika Hodges DO Medicines: Monitored Anesthesia Care Patient Profile: This is an 83 year old male. Refer to note in patient chart for documentation of history and physical. Patient has symptoms of dysphagia with both liquids and solids. Last Colonoscopy: date unknown. Unable to locate last colonoscopy report. Complications: No immediate complications. Procedure: Pre-Anesthesia Assessment: - Prior to the procedure, a History and Physical was performed, and patient medications and allergies were reviewed. The patient is competent. The risks and benefits of the procedure and the sedation options and risks were discussed with the patient. All questions were answered and informed consent was obtained. Patient identification and proposed procedure were verified by the physician. Mental Status Examination: alert and oriented. Airway Examination: normal oropharyngeal airway and neck mobility. Respiratory Examination: clear to auscultation. Prophylactic Antibiotics: The patient does not require prophylactic antibiotics. Prior Anticoagulants: The patient has taken no anticoagulant or antiplatelet agents. After reviewing the risks and benefits, the patient was deemed in satisfactory condition to undergo the procedure. The anesthesia plan was to use minimal sedation / analgesia (anxiolysis). Immediately prior to administration of medications, the patient was re-assessed for adequacy to receive sedatives. The heart rate, respiratory rate, oxygen saturations, blood pressure, adequacy of pulmonary ventilation, and response to care were monitored throughout the procedure. The physical status of the patient was re-assessed after the procedure. After I obtained informed consent, the scope was passed under direct vision. Throughout the procedure, the patient's blood pressure, pulse, and oxygen saturations were monitored continuously. The Colonoscope was introduced through the anus and advanced to the cecum, identified by appendiceal orifice and ileocecal valve. The colonoscopy was performed without difficulty. The patient tolerated the procedure well. The quality of the bowel preparation was fair. The ileocecal valve, appendiceal orifice, and rectum were photographed. Scope In: 3:33:44 PM Scope Out: 3:53:02 PM Total Procedure Duration Time 0 hours 19 minutes 18 seconds Findings: Hemorrhoids were found on perianal exam. Multiple small and large-mouthed diverticula were found in the entire colon. The exam was otherwise without abnormality on direct and retroflexion views. Stool was found in the recto-sigmoid colon, in the sigmoid colon, at the hepatic flexure and in the ascending colon. Impression: - Preparation of the colon was fair. - Hemorrhoids found on perianal exam. - Diverticulosis in the entire examined colon. - The examination was otherwise normal on direct and retroflexion views. - Stool in the recto-sigmoid colon, in the sigmoid colon, at the hepatic flexure and in the ascending colon. - No specimens collected. Recommendation: - Resume previous diet. - Continue present medications. - No repeat colonoscopy due to age. Procedure Code(s): --- Professional --- 66383, Colonoscopy, flexible; diagnostic, including collection of specimen(s) by brushing or washing, when performed (separate procedure) CPT copyright 2021 [employer]. All rights reserved. The codes documented in this report are preliminary and upon sales representative cash registers review may be revised to meet current compliance requirements. Mika Hodges DO 07/15/2023 4:07:20 PM This report has been signed electronically. Number of Addenda: 0 Note Initiated On: 07/15/2023 3:30 PM
== END 2023-07-18 23:59 | disposition home or self-care (01) ==
LOC: EN 07-28 09:49
PROVIDERS: PCP Family Medicine; Referring Provider Family Medicine; Visit Provider Internal Medicine Gastroenterology
PROC: 0DJD8ZZ Inspection of Lower Intestinal Tract, Via Natural or Artificial Opening Endoscopic (ICD-10-PCS; CPT 45378; principal; 2023-07-15 15:55)
DX: K44.9 Diaphragmatic hernia without obstruction or gangrene (principal); I48.0 Paroxysmal atrial fibrillation; N18.32 Chronic kidney disease, stage 3b; K57.30 Diverticulosis of large intestine without perforation or abscess without bleeding; K31.89 Other diseases of stomach and duodenum; R13.10 Dysphagia, unspecified; K22.2 Esophageal obstruction; K31.7 Polyp of stomach and duodenum; D50.9 Iron deficiency anemia, unspecified; K64.9 Unspecified hemorrhoids; D62 Acute posthemorrhagic anemia; Z79.01 Long term (current) use of anticoagulants
CPT/HCPCS: 43248; 45378; 43251; J7120; 81002; 88305; 88313; 88341; 88342

== ENCOUNTER 2023-07-18 18:51 | Inpatient (IN) | payer MEDICARE, OTHER, SELFPAY ==
[2023-07-18] VITALS (8 sets, daily range): BP systolic 130–145; BP diastolic 84–104; PULSE 97–113; RESP 17–24; TEMP 36.2–36.7; O2SAT 93–98; BMI 23.0; BMI 22.6
--- NOTE | 2023-07-18 19:46 | EDS_ITS ---
HPI <ETHEL Sheridan - Last Filed: 07/18/23 21:43> History of Present Illness Chief Complaint: Palpitations Narrative Narrative: Patient is an 83-year-old male who has been in the hospital and TCU since July 02, 2023. Patient presents to the emergency department for weakness, shortness of breath, tachycardia. Patient has a long medical history of atrial fibrillation on Coumadin, coronary artery disease, hypothyroidism, hypokalemia, rectal bleeding, anemia. Patient was at physical therapy today, riding a bicycle when he felt increasingly fatigued, felt his heart rate was elevated, and is here for evaluation. This is similar to the patient's experience in July 02, 2023. Patient denies any specific chest pain, patient denies any shortness of breath however states he feels generalized fatigue and is here for evaluation. [facility] <ETHEL Sheridan - Last Filed: 07/18/23 21:43> [facility] Medical History Acute constipation Acute exacerbation of chronic low back pain Acute gastrointestinal bleeding Acute kidney injury superimposed on chronic kidney disease Ambulates with cane Anemia Arthritis Atherosclerotic heart disease of [place] coronary artery without angina pectoris Atrial fibrillation Atypical atrial flutter (12/2020) Back pain Benign prostatic hyperplasia BPH (benign prostatic hyperplasia) Cancer Cardiology follow-up encounter Chronic anemia Chronic heart failure with preserved ejection fraction (HFpEF) Chronic kidney disease Chronic renal insufficiency Colitis CPAP (continuous positive airway pressure) dependence Debility Diarrhea Difficulty chewing Dysphagia Easy bruising Elevated LFTs Elevated liver enzymes Essential (primary) hypertension Excessive bleeding Gastric reflux GI bleed (2012) Hiatal hernia High cholesterol History of colon polyps History of diverticulitis History of echocardiogram History of edema History of heart attack History of hyperthyroidism History of leukemia History of pain when walking History of renal disease History of stress test HLD (hyperlipidemia) Hypothyroidism Kidney disease Kidney stones Myocardial infarct Nausea and vomiting Non-rheumatic tricuspid valve insufficiency Non-smoker Nonrheumatic mitral (valve) insufficiency 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 Osteoarthritis Paroxysmal atrial fibrillation Secondary pulmonary arterial hypertension Sleep apnea Sleep apnea Stage 3b chronic kidney disease Thoracic aortic aneurysm (TAA) Thyroid disease Wears glasses Home Medications denosumab 60 mg/mL subcutaneous syringe (Prolia) 60 mg SQ .[id number] BONES 12/09/20 [History Last Taken 11/10/22] tamsulosin 0.4 mg capsule 0.4 mg PO QHS bladder 11/18/21 [History Last Taken 06/20/23] levothyroxine 25 mcg tablet 50 mcg PO DAILY thyroid 02/17/22 [History Last Taken 06/21/23] vitamin B complex 1 cap PO BID supplement 05/01/22 [History Last Taken 02/12/23] linaclotide 72 mcg capsule (Linzess) 72 mcg PO DAILY PRN Diarrhea 06/15/22 [History Last Taken Unknown] ascorbic acid (vitamin C) 500 mg tablet 500 mg PO DAILY supplement 07/20/22 [History Last Taken 06/21/23] finasteride 5 mg tablet 5 mg PO DAILY prostate 08/05/22 [History Last Taken 06/21/23] cholecalciferol (vitamin D3) 25 mcg (1,000 unit) capsule (Vitamin D3) 1,000 unit PO DAILY supplement 02/19/23 [History Last Taken Unknown] polyethylene glycol 3350 17 gram oral powder packet 17 g PO DAILY constipation 02/19/23 [History Last Taken Unknown] amiodarone 100 mg tablet 100 mg PO BID heart 02/21/23 [History Last Taken 06/21/23] sucralfate 1 gram tablet 1 g PO TID@0700,1100,1600 stomach 30 days #90 tabs 03/21/23 [Rx Last Taken 06/21/23] famotidine 40 mg tablet 40 mg PO DAILY stomach #30 tabs 04/11/23 [Rx Last Taken Unknown] lactulose 10 gram/15 mL oral solution 10 g (15 mL) PO DAILY constipation 30 days #450 mL 05/18/23 [Rx Last Taken Unknown] loratadine 10 mg tablet (Claritin) 10 mg PO DAILY allergies 06/16/23 [History Last Taken Unknown] warfarin 3 mg tablet (Jantoven) 3 mg PO SuTuThSa@1700 blood thinner #0 tabs 06/21/23 [Rx Last Taken 06/19/23] warfarin 4 mg tablet See Rx Instructions .Route .COMPLEX blood thinner #60 tabs 06/21/23 [Rx Last Taken 06/20/23] acetaminophen 500 mg tablet 1,000 mg (2 x 500 mg) PO Q8 #0 tabs 07/06/23 [Rx Last Taken Unknown] furosemide 40 mg tablet 40 mg PO DAILY 30 days #30 tabs 07/06/23 [Rx Last Taken Unknown] metoprolol tartrate 25 mg tablet 25 mg PO BID #0 tabs 07/06/23 [Rx Last Taken Unknown] Allergy/AdvReac Type Severity Reaction Status Date / Time diclofenac Allergy rash Verified 07/15/23 14:49 prednisone Allergy Rash Verified 07/15/23 14:49 Family History Father Cancer Prostate cancer Mother Hypertension Sister Hypertension Surgical History History of back surgery History of back surgery History of cardiac catheterization History of cardioversion (06/18/19) History of coronary artery stent placement (08/04/00) History of electrophysiologic study (08/08/00) History of esophagogastroduodenoscopy (EGD) History of hemorrhoidectomy History of hernia repair History of left heart catheterization (07/17/12) History of Zenaida fundoplication History of radiofrequency ablation procedure for cardiac arrhythmia (11/11/11) Social History household members: none Smoking Status: Never smoker alcohol intake: never substance use type: does not use caffeine: No ROS <ETHEL Sheridan - Last Filed: 07/18/23 21:43> ROS ED ROS Narrative Constitutional: Negative for fever, chills, weight loss. For weakness and fatigue Eyes: Negative for vision loss, vision change, double vision ENT: Negative for any sore throat, ear pain, congestion Cardiovascular: Negative for any chest pain, tightness, palpitations Respiratory: Negative for any cough, sputum production, hemoptysis, dyspnea, orthopnea. , Positive for dyspnea on exertion Gastrointestinal: Negative for any abdominal pain, nausea, vomiting, diarrhea, constipation, blood in stool, blood in vomit : Negative for any urinary frequency, dysuria, retention, blood in urine Muscle skeletal: Negative for any myalgias, arthralgias, neck pain, back pain Neurological: Negative for any headache, syncope, numbness or tingling, dizziness Skin: Negative for any rashes, lumps, itching, abrasions, lacerations Psychiatric: Negative for any depression, anxiety, stress, suicidal ideation, homicidal ideation Hematologic: Negative for any easy bruising, excessive bruising, easy bleeding Allergies: Negative for any eczema, hives, rash EXAM <ETHEL Sheridan - Last Filed: 07/18/23 21:43> Physical Exam Narrative Exam Narrative: Vital signs reviewed. Patient is alert and orient x4, patient vital signs are stable while patient is at rest. Patient's heart rate is anywhere from 95to 120. Patient's oxygen is 93-95 on 4 L nasal cannula which is baseline. HEET: Head normocephalic atraumatic, TMs clear bilaterally. Posterior pharynx is clear, dry mucous membranes. Nares clear bilaterally. Neck: Supple with no lymphadenopathy or tenderness. No signs of meningismus. Cardiac: Irregular tachycardic rate no murmurs gallops or rubs, equal peripheral pulses bilaterally. Respiratory: Patient has crackles to bilateral lower lobes. No chest tenderness. Abdomen: Soft, nontender, nondistended. No abdominal bruit or pulsatile masses. No hepatosplenomegaly Extremities: No peripheral edema, no signs of gross trauma or deformity. Active full range of motion of all extremities. Neuro: Cranial nerves II through XII intact, no focal neurological deficits. Skin: Clean dry and intact with no rash, purpura, petechiae, vesicles or pustules. Patient's skin does have a pale appearance Backs/flank: No CVA tenderness, no midline spinal tenderness, no deformity. Psych: Normal mood and affect. No SI, HI or acute psychosis. Const Vital Signs: 07/18/23 18:55 07/18/23 18:58 07/18/23 19:01 Temperature 97.2 F L Temperature Source Temporal Pulse Rate 113 H Respiratory Rate 24 H Respiratory Effort Normal Non-Labored Blood Pressure 145/96 H Blood Pressure Mean 112 Pulse Ox 93 94 Oxygen Delivery Method Nasal Cannula Nasal Cannula Oxygen Flow Rate (L/min) 4 4 07/18/23 21:27 Temperature Temperature Source Pulse Rate 104 H Respiratory Rate 17 Respiratory Effort Blood Pressure 130/84 H Blood Pressure Mean 99 Pulse Ox 95 Oxygen Delivery Method Nasal Cannula Oxygen Flow Rate (L/min) 4 Positive well nourished and well developed General Appearance ED: well developed <Dr. Venkat Gilmore DO - Last Filed: 07/18/23 22:20> Physical Exam Const Vital Signs: 07/18/23 18:55 07/18/23 18:58 07/18/23 19:01 Temperature 97.2 F L Temperature Source Temporal Pulse Rate 113 H Respiratory Rate 24 H Respiratory Effort Normal Non-Labored Blood Pressure 145/96 H Blood Pressure Mean 112 Pulse Ox 93 94 Oxygen Delivery Method Nasal Cannula Nasal Cannula Oxygen Flow Rate (L/min) 4 4 07/18/23 21:27 Temperature Temperature Source Pulse Rate 104 H Respiratory Rate 17 Respiratory Effort Blood Pressure 130/84 H Blood Pressure Mean 99 Pulse Ox 95 Oxygen Delivery Method Nasal Cannula Oxygen Flow Rate (L/min) 4 MDM <ETHEL Sheridan - Last Filed: 07/18/23 21:43> [facility] Lab Data Labs: Laboratory Results - last 24 hr 07/18/23 07/18/23 07/18/23 19:30 19:35 21:36 WBC 13.7 H RBC 2.61 L Hgb 8.8 L Hct 28.1 L MCV 107.7 H MCH 33.7 H MCHC 31.3 L RDW Std Deviation 85.0 H RDW Coeff of Pablo 21.4 H Plt Count 390 MPV 9.7 Immature Gran % (Auto) 0.800 Neut % (Auto) 86.9 H Lymph % (Auto) 4.2 L [place] % (Auto) 7.0 Eos % (Auto) 0.5 Baso % (Auto) 0.6 Absolute Neuts (auto) 11.9 H Absolute Lymphs (auto) 0.58 L Nucleated RBC % 0 Differential Comment PT 21.1 H INR 1.8 Sodium 140 Potassium 4.4 Chloride 105 Carbon Dioxide 32.0 Anion Gap 3 L BUN 47 H Creatinine 2.24 H Estim Creat Clear Calc 24.60 Est GFR (MDRD) Af Amer 36 L Est GFR (MDRD) Non-Af 30 L BUN/Creatinine Ratio 21.0 H Glucose 148 H Lactic Acid 1.5 Calcium 8.6 Troponin I High Sens 39 B-Natriuretic Peptide 2664.0 H Urine Color Yellow Urine Clarity Clear Urine pH 5.0 Ur Specific [place] 1.015 Urine Protein 30 H Urine Glucose (UA) Normal Urine Ketones Negative Urine Occult Blood 10 H Urine Nitrite Negative Urine Bilirubin Negative Urine Urobilinogen Normal Ur Leukocyte Esterase 25 H Urine RBC 0-5 SEEN Urine WBC 0-5 SEEN Ur Squamous Epith Cells 0-5 SEEN Urine Bacteria 0 SEEN Urine Mucus 0 SEEN Radiography Diagnostic Testing: Clinical Impression(s) from Imaging Studies Chest X-Ray 07/18/23 20:10 IMPRESSION: Right-sided effusion with bilateral lower lobe airspace disease which may represent atelectasis or developing pneumonia. Electronically Signed: Willie Friedman MD at 20:51 EST , Treatment and Re-Evaluation :: Patient appears to be in no obvious respiratory distress, patient presents to the emergency department for ongoing weakness, palpitations that started while he was riding the bike in therapy. Differential diagnosis includes worsening anemia, rectal bleed, atrial fibrillation with RVR, infectious process. Patient will receive a full work-up including laboratory values CBC to rule out any anemia, basic metabolic panel to ensure there is no electrolyte abnormality, dehydration, FE. Patient will receive a PT/INR to ensure that the patient is therapeutic. Chest x-ray will be completed to rule out any pneumonia. Patient is currently not on any antibiotics. Patient denies any dark tarry stools at this time. Patient's laboratory values showed a slight leukocytosis with a white blood count of 13.7, patient's history of anemia is stable with a hemoglobin 8.8, this is chronic since 07/13/2023. Patient's PT is 21.1 which is high with an INR of 1.8, slightly subtherapeutic. Patient's kidney function is slightly worse than usual, patient is usually around 1.8-2.0. Patient is currently 2.24. Patient's GFR is 36, patient's proBNP is 2664, this is [facility]. Patient was given 60 mg of IV Lasix. Patient's chest x-ray shows right-sided effusion with bilateral lower lobe airspace disease which may represent atelectasis versus developing pneumonia. Two sets of blood cultures will be drawn, patient will receive vancomycin, Zosyn to cover community-acquired pneumonia. Patient was given 60 mg of IV Lasix. I did speak with the hospitalist regarding this patient. Patient is stable for admission. Patient be full admission to PCU. <Dr. Venkat Gilmore, DO - Last Filed: 07/18/23 22:20> [facility] History & Record Review Discussion w/independent historian: Patient and Other Additional record(s) reviewed:: Prior inpatient record, Prior outpatient record, Prior ED visit and Prior labs Lab Data Attestation: I reviewed the patient's lab results. Labs: Laboratory Results - last 24 hr 07/18/23 07/18/23 07/18/23 19:30 19:35 21:36 WBC 13.7 H RBC 2.61 L Hgb 8.8 L Hct 28.1 L MCV 107.7 H MCH 33.7 H MCHC 31.3 L RDW Std Deviation 85.0 H RDW Coeff of Apblo 21.4 H Plt Count 390 MPV 9.7 Immature Gran % (Auto) 0.800 Neut % (Auto) 86.9 H Lymph % (Auto) 4.2 L [place] % (Auto) 7.0 Eos % (Auto) 0.5 Baso % (Auto) 0.6 Absolute Neuts (auto) 11.9 H Absolute Lymphs (auto) 0.58 L Nucleated RBC % 0 Differential Comment PT 21.1 H INR 1.8 Sodium 140 Potassium 4.4 Chloride 105 Carbon Dioxide 32.0 Anion Gap 3 L BUN 47 H Creatinine 2.24 H Estim Creat Clear Calc 24.60 Est GFR (MDRD) Af Amer 36 L Est GFR (MDRD) Non-Af 30 L BUN/Creatinine Ratio 21.0 H Glucose 148 H Lactic Acid 1.5 Calcium 8.6 Troponin I High Sens 39 B-Natriuretic Peptide 2664.0 H Urine Color Yellow Urine Clarity Clear Urine pH 5.0 Ur Specific [place] 1.015 Urine Protein 30 H Urine Glucose (UA) Normal Urine Ketones Negative Urine Occult Blood 10 H Urine Nitrite Negative Urine Bilirubin Negative Urine Urobilinogen Normal Ur Leukocyte Esterase 25 H Urine RBC 0-5 SEEN Urine WBC 0-5 SEEN Ur Squamous Epith Cells 0-5 SEEN Urine Bacteria 0 SEEN Urine Mucus 0 SEEN Radiography Diagnostic Testing: Clinical Impression(s) from Imaging Studies Chest X-Ray 07/18/23 20:10 IMPRESSION: Right-sided effusion with bilateral lower lobe airspace disease which may represent atelectasis or developing pneumonia. Electronically Signed: Willie Friedman MD at 20:51 EST , Treatment and Re-Evaluation :: Patient appears to be in no obvious respiratory distress, patient presents to the emergency department for ongoing weakness, palpitations that started while he was riding the bike in therapy. Differential diagnosis includes worsening anemia, rectal bleed, atrial fibrillation with RVR, infectious process. Patient will receive a full work-up including laboratory values CBC to rule out any anemia, basic metabolic panel to ensure there is no electrolyte abnormality, dehydration, FE. Patient will receive a PT/INR to ensure that the patient is therapeutic. Chest x-ray will be completed to rule out any pneumonia. Patient is currently not on any antibiotics. Patient denies any dark tarry stools at this time. Patient's laboratory values showed a slight leukocytosis with a white blood count of 13.7, patient's history of anemia is stable with a hemoglobin 8.8, this is chronic since 07/13/2023. Patient's PT is 21.1 which is high with an INR of 1.8, slightly subtherapeutic. Patient's kidney function is slightly worse than usual, patient is usually around 1.8-2.0. Patient is currently 2.24. Patient's GFR is 36, patient's proBNP is 2664, this is more elevated than recently June 29, 2023 when it was 1384. Patient was given 60 mg of IV Lasix. Patient's chest x-ray shows right-sided effusion with bilateral lower lobe airspace disease which may represent atelectasis versus developing pneumonia. Two sets of blood cultures will be drawn, patient will receive vancomycin, Zosyn to cover community-acquired pneumonia. Patient was given 60 mg of IV Lasix. I did speak with the hospitalist regarding this patient. Patient is stable for admission. Patient be full admission to PCU. I have personally performed a face to face assessment of the patient and have reviewed the SIRIA Note. I performed a substantive portion of the visit including all aspects of the following. My bautista findings include: History is patient with a history of atrial flutter fibrillation as well as CHF. Patient admitted to the hospital earlier this month and has been on TCU. He states he is there for rehab but today he has basically been in bed unable to move without becoming significantly short of breath and tachycardic. He notes no change in his cough. Exam is atrial flutter with RVR at rest around 100/110. He is noticeably dyspneic with movement. Medical Decison Making patient showing signs of volume overload. He is unable to really move without becoming hypoxic and tachycardic. Therefore he is not optimized to participate in physical therapy which is the goal of his TCU stay. I will speak with the hospitalist regarding admission Discharge Plan Dx/Rx/DC Orders Clinical Impression: Chronic kidney disease, stage 3b, Acute exacerbation of CHF (congestive heart failure), HAP (hospital-acquired pneumonia), Hypoxia, Debility Disposition Disposition: Acute Care Hospital [facility]
[2023-07-18 19:52] LABS: Bacteria 0 SEEN /hpf (None Seen); Mucous, Urine 0 SEEN /hpf (<or=2+)
[2023-07-18 19:56] LABS: Absolute Lymphocyte Count 0.58 X10^3/uL (0.83-4.51); Absolute Neutrophil Count 11.9 X10^3/uL (2.0-7.7); Basophil# 0.08 X10^3/uL; Basophil% 0.6 % (0-1); Eosinophil# 0.07 X10^3/uL; Eosinophils% 0.5 % (0-5); Hematocrit 28.1 % (40-54); Hemoglobin 8.8 g/dL (13.0-16.5); Lymphocyte # 0.58 X10^3/ul (0.83-4.51); Lymphocyte % 4.2 % (19-41); Mean Corp Hgb Conc 31.3 g/dL (32-36); Mean Corpuscular Hgb 33.7 pg (27.0-32.0); Mean Corpuscular Volume 107.7 fL (80-94); Mean Platelet Vol. 9.7 fl (6.2-12.0); Monocyte# 0.95 X10^3/uL; NRBC Flagged by Analyzer 0 % (0-5); Neutrophil # 11.87 X10^3/uL (2.7-7.7); Neutrophil % 86.9 % (47-70); POSITIVE DIFFERENTIAL YES; POSITIVE MORPHOLOGY YES; Platelet Count 390 K/mm3 (150-450); RBC Distribution Width CV 21.4 % (11.6-14.6); Red Blood Count 2.61 M/mm3 (4.6-6.2); White Blood Count 13.7 K/mm3 (4.4-11.0)
[2023-07-18 19:58] LABS: Color, Urine Yellow (Yellow); Glucose, Dipstick Normal (Normal); Ketone-Dipstick Negative (Negative); Leukocyte Esterase-Dipstick 25 /ul (Negative); Nitrite-Dipstick Negative (Negative); Occult Blood-Urine 10 /ul (Negative); Protein-Dipstick 30 mg/dl (Negative); Specific Gravity, Urine 1.015 (1.002-1.030); Urine Bilirubin Dipstick Negative (Negative); Urine Clarity Clear (Clear); Urine Urobilinogen Normal (Normal)
[2023-07-18 20:08] LABS: Red Blood Cells-Urine 0-5 SEEN /hpf (0-5); Squamous Epithelial Cells - UA 0-5 SEEN /hpf (0-5); White Blood Cells 0-5 SEEN /hpf (0-5)
[2023-07-18 20:10] LABS: International Normalized Ratio 1.8; Prothrombin Time (Protime)PT. 21.1 SECONDS (11.7-14.9)
--- NOTE | 2023-07-18 20:10 | RAD_ITS ---
EXAM: XR CHEST, 1 VIEW CLINICAL INDICATION: chest pain TECHNIQUE: Frontal view of the chest. COMPARISON: 07/02/2023 FINDINGS: LUNGS AND PLEURAL SPACES: See below. HEART: Unremarkable. Cardiac silhouette not enlarged. MEDIASTINUM: Central airways and mediastinal contour are unremarkable. BONES/JOINTS: There is a small right-sided effusion with bibasilar airspace disease. No acute fracture. SOFT TISSUES: Unremarkable. RAD/Chest 1 View (Portable) IMPRESSION: Right-sided effusion with bilateral lower lobe airspace disease which may represent atelectasis or developing pneumonia. Electronically Signed: Willie Friedman MD at 20:51 EST ,
[2023-07-18 20:17] LABS: Anion Gap 3 (5-15); BUN 47 mg/dL (7-18); Calcium,Total 8.6 mg/dL (8.5-10.1); Chloride 105 mmol/L (98-107); Creatinine, Serum 2.24 mg/dL (0.70-1.30); EST Glomerular Filtration Rate 30 mL/min (>60); Est Glom Filt Rate - Afr Amer 36 mL/min (>60); Glucose 148 mg/dL (74-106); Potassium 4.4 mmol/L (3.5-5.1); Sodium Level 140 mmol/L (136-145); Troponin-I HS (w/2H Reflex) 39 pg/mL (3.0-78.0)
[2023-07-18 20:20] LABS: Differential Indicated SCAN CRITERIA MET
[2023-07-18] MEDS: Furosemide 100 MG/10 ML Vial 60 MG IV (21:46)
[2023-07-18] MEDS: Piperacil/Tazobactam 3.375 GM in 0.9% Normal Saline (50mL MB+) 50 ML IV (21:46)
[2023-07-18 21:51] LABS: Reflex Troponin-HS? (from REC) Y
--- NOTE | 2023-07-18 22:00 | PCM.HP.STD ---
[facility] - General General Date of Admission: 07/18/23 Date of Service: 07/18/23 Chief Complaint: Shortness of breath. HPI Narrative RICHIE MCKEON, is a 83 M with a past medical history of essential hypertension, hyperlipidemia, history of hyperthyroidism, chronic atrial fibrillation; with history of radiofrequency ablation procedure in 2011 on amiodarone, metoprolol and Coumadin, recently diagnosed GI bleed; with Coumadin transiently held, history of another GI (rectal) bleed in 2012, history of colonic diverticulitis, chronic kidney disease; stage III-b, chronic diastolic CHF; with preserved ejection fraction, known history of coronary artery disease; status post myocardial infarction and stent in 1999, history of nonrheumatic mitral insufficiency, history of leukemia, history of Zenaida fundoplication, history of renal calculi, osteoarthritis; with chronic back pain and patient typically ambulating with a cane, history of BPH and obstructive sleep apnea; in spite of normal BMI of 23 present on admission who presents to [facility] ER after being transferred from the TCU complaining of shortness of breath. Mr. Mckeon reports his symptoms began approximately 1 week prior to admission with dyspnea on exertion that gradually progressed to shortness of breath at rest. He further states that he was unable to participate in physical therapy at TCU with dyspnea and fatigue so severe he could not ride the bicycle or exert himself in any significant way. He states he felt similar to the way that he did when admitted to the hospital on July 02, 2023. He denies associated fever, chills, nausea, vomiting, recent antibiotic or chest pain but he does admit to severe dyspnea on exertion and generalized fatigue with his heart rate noted to be 95 to 120 bpm this admission. In the ER his chest x-ray was positive for a right-sided effusion with by lateral lower lobe airspace disease suspicious for developing hospital-acquired pneumonia with leukocytosis of 13.7 present on admission complicated by acute exacerbation of chronic diastolic CHF; with preserved left ventricular ejection fraction evidenced by an elevated proBNP of 2,664 pg/mL present on admission (up from his previous baseline of 1,384.2 pg/mL on 06/29/2023) with clinical evidence of acute hypoxic respiratory insufficiency acutely exacerbating his chronic generalized weakness with ambulatory dysfunction and he was then admitted to the PCU for ongoing care for a stay that is expected to be greater than 48 hours. [facility] Medical History Acute constipation Acute exacerbation of chronic low back pain Acute gastrointestinal bleeding Acute kidney injury superimposed on chronic kidney disease Ambulates with cane Anemia Anxiety Arthritis Atherosclerotic heart disease of kaw coronary artery without angina pectoris Atrial fibrillation Atypical atrial flutter (12/2020) Back pain Benign prostatic hyperplasia BPH (benign prostatic hyperplasia) Cancer Cardiology follow-up encounter Chronic anemia Chronic heart failure with preserved ejection fraction (HFpEF) Chronic kidney disease Chronic pain Chronic renal insufficiency Colitis COPD (chronic obstructive pulmonary disease) CPAP (continuous positive airway pressure) dependence Debility Diarrhea Difficulty chewing Dysphagia Easy bruising Elevated LFTs Elevated liver enzymes Essential (primary) hypertension Excessive bleeding Gastric reflux GI bleed (2012) Hearing loss, left Hearing loss, right Hiatal hernia High cholesterol History of colon polyps History of diverticulitis History of echocardiogram History of edema History of heart attack History of hyperthyroidism History of leukemia History of pain when walking History of renal disease History of stress test HLD (hyperlipidemia) Hypertension Hypothyroidism Irregular heart beat Kidney disease Kidney stones Myocardial infarct Nausea and vomiting Non-rheumatic tricuspid valve insufficiency Non-smoker Nonrheumatic mitral (valve) insufficiency 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 Osteoarthritis Paroxysmal atrial fibrillation Rheumatoid arthritis Secondary pulmonary arterial hypertension Sleep apnea Sleep apnea Stage 3b chronic kidney disease Thoracic aortic aneurysm (TAA) Thyroid disease Wears glasses Home Medications denosumab 60 mg/mL subcutaneous syringe (Prolia) 60 mg SQ .[id number] BONES 12/09/20 [History Last Taken 11/10/22] tamsulosin 0.4 mg capsule 0.4 mg PO QHS bladder 11/18/21 [History Last Taken 06/20/23] levothyroxine 25 mcg tablet 50 mcg PO DAILY thyroid 02/17/22 [History Last Taken 06/21/23] vitamin B complex 1 cap PO BID supplement 05/01/22 [History Last Taken 02/12/23] linaclotide 72 mcg capsule (Linzess) 72 mcg PO DAILY PRN Diarrhea 06/15/22 [History Last Taken Unknown] ascorbic acid (vitamin C) 500 mg tablet 500 mg PO DAILY supplement 07/20/22 [History Last Taken 06/21/23] finasteride 5 mg tablet 5 mg PO DAILY prostate 08/05/22 [History Last Taken 06/21/23] cholecalciferol (vitamin D3) 25 mcg (1,000 unit) capsule (Vitamin D3) 1,000 unit PO DAILY supplement 02/19/23 [History Last Taken Unknown] polyethylene glycol 3350 17 gram oral powder packet 17 g PO DAILY constipation 02/19/23 [History Last Taken Unknown] amiodarone 100 mg tablet 100 mg PO BID heart 02/21/23 [History Last Taken 06/21/23] sucralfate 1 gram tablet 1 g PO TID@0700,1100,1600 stomach 30 days #90 tabs 03/21/23 [Rx Last Taken 06/21/23] famotidine 40 mg tablet 40 mg PO DAILY stomach #30 tabs 04/11/23 [Rx Last Taken Unknown] lactulose 10 gram/15 mL oral solution 10 g (15 mL) PO DAILY constipation 30 days #450 mL 05/18/23 [Rx Last Taken Unknown] loratadine 10 mg tablet (Claritin) 10 mg PO DAILY allergies 06/16/23 [History Last Taken Unknown] warfarin 3 mg tablet (Jantoven) 3 mg PO SuTuThSa@1700 blood thinner #0 tabs 06/21/23 [Rx Last Taken 06/19/23] warfarin 4 mg tablet See Rx Instructions .Route .COMPLEX blood thinner #60 tabs 06/21/23 [Rx Last Taken 06/20/23] acetaminophen 500 mg tablet 1,000 mg (2 x 500 mg) PO Q8 #0 tabs 07/06/23 [Rx Last Taken Unknown] furosemide 40 mg tablet 40 mg PO DAILY 30 days #30 tabs 07/06/23 [Rx Last Taken Unknown] metoprolol tartrate 25 mg tablet 25 mg PO BID #0 tabs 07/06/23 [Rx Last Taken Unknown] Allergy/AdvReac Type Severity Reaction Status Date / Time diclofenac Allergy rash Verified 07/15/23 14:49 prednisone Allergy Rash Verified 07/15/23 14:49 Family History Father Cancer Prostate cancer Mother Hypertension Sister Hypertension Surgical History History of back surgery History of back surgery History of cardiac catheterization History of cardioversion (06/18/19) History of coronary artery stent placement (08/04/00) History of electrophysiologic study (08/08/00) History of esophagogastroduodenoscopy (EGD) History of hemorrhoidectomy History of hernia repair History of left heart catheterization (07/17/12) History of Zenaida fundoplication History of radiofrequency ablation procedure for cardiac arrhythmia (11/11/11) Social History household members: none Smoking Status: Never smoker alcohol intake: never substance use type: does not use caffeine: No ROS ROS Narrative Review of systems: Constitutional: Positive for weakness and fatigue but negative for fevers or chills. Eyes: Patient denies visual changes. ENT: Patient denies sore throat, ear pain or runny nose. Cardiovascular: Patient denies chest pain, chest tightness or palpitations. Gastrointestinal: Patient denies abdominal pain, nausea, vomiting, diarrhea or constipation. Genitourinary: Patient denies dysuria, hematuria, urinary frequency or urinary retention. Musculoskeletal: Patient admits to back pain which is chronic. Neurological: Patient denies headache, dizziness or focal neurologic deficits. Skin: Patient denies abscess or rash. Psychiatric: Patient denies depression, anxiety, suicidal ideation or homicidal ideation. Hematologic: Patient denies easy bleeding or easy bruising. Allergic: Patient denies urticaria, eczema, lip swelling or mouth swelling. 14 point review systems otherwise negative except for positives noted above in HPI. Vital Signs Vital Signs Vital Signs: 07/18/23 18:55 07/18/23 18:58 07/18/23 19:01 Temperature 97.2 F L Temperature Source Temporal Pulse Rate 113 H Respiratory Rate 24 H Respiratory Effort Normal Non-Labored Blood Pressure 145/96 H Blood Pressure Mean 112 Pulse Ox 93 94 Oxygen Delivery Method Nasal Cannula Nasal Cannula Oxygen Flow Rate (L/min) 4 4 07/18/23 21:27 Temperature Temperature Source Pulse Rate 104 H Respiratory Rate 17 Respiratory Effort Blood Pressure 130/84 H Blood Pressure Mean 99 Pulse Ox 95 Oxygen Delivery Method Nasal Cannula Oxygen Flow Rate (L/min) 4 Weight Weight: 151 lb 7.321 oz Body Mass Index (BMI) 23.0 Physical Exam Const alert, oriented x3 and average body habitus Constitutional Narrative: Mild dyspnea at rest noted. General Appearance: cooperative HEENT normocephalic, head/scalp atraumatic, hearing grossly normal bilaterally, moist oral mucous membranes and oropharynx normal Eyes PERRL, EOMs intact bilaterally and conjunctivae normal Neck no lymphadenopathy and supple Resp Resp Narrative: Decreased breath sounds throughout Right greater than Left with bibasilar rales. Auscultation: crackles Cardio Cardio Narrative: Irregularly irregular. GI normal to inspection, nondistended, normoactive bowel sounds, soft to palpation, non-tender and non-distended Extremity normal to inspection, full ROM and no clubbing, cyanosis or edema Skin Skin Narrative: Patient has no evidence of rash at this time. Neuro oriented x3, CN's II-XII intact bilaterally, moves all extremities and no focal motor deficits Sensorium / Orientation: awake, alert, oriented to person, oriented to place and oriented to time Speech: speech normal Motor Exam: strength 5/5 throughout Psych affect normal Results Medical Records Data Attestation: I reviewed the patient's medical records Lab / Micro Data Attestation: I reviewed the patient's lab results. 07/18/23 19:35 07/18/23 19:35 Labs: Laboratory Results - last 24 hr 07/18/23 19:30: Urine Color Yellow, Urine Clarity Clear, Urine pH 5.0, Ur Specific Milton 1.015, Urine Protein 30 H, Urine Glucose (UA) Normal, Urine Ketones Negative, Urine Occult Blood 10 H, Urine Nitrite Negative, Urine Bilirubin Negative, Urine Urobilinogen Normal, Ur Leukocyte Esterase 25 H, Urine RBC 0-5 SEEN, Urine WBC 0-5 SEEN, Ur Squamous Epith Cells 0-5 SEEN, Urine Bacteria 0 SEEN, Urine Mucus 0 SEEN 07/18/23 19:35: WBC 13.7 H, RBC 2.61 L, Hgb 8.8 L, Hct 28.1 L, MCV 107.7 H, MCH 33.7 H, MCHC 31.3 L, RDW Std Deviation 85.0 H, RDW Coeff of Pablo 21.4 H, Plt Count 390, MPV 9.7, Immature Gran % (Auto) 0.800, Neut % (Auto) 86.9 H, Lymph % (Auto) 4.2 L, Ada % (Auto) 7.0, Eos % (Auto) 0.5, Baso % (Auto) 0.6, Absolute Neuts (auto) 11.9 H, Absolute Lymphs (auto) 0.58 L, Nucleated RBC % 0, Differential Comment , PT 21.1 H, INR 1.8, Sodium 140, Potassium 4.4, Chloride 105, Carbon Dioxide 32.0, Anion Gap 3 L, BUN 47 H, Creatinine 2.24 H, Estim Creat Clear Calc 24.60, Est GFR (MDRD) Af Amer 36 L, Est GFR (MDRD) Non-Af 30 L, BUN/Creatinine Ratio 21.0 H, Glucose 148 H, Calcium 8.6, Troponin I High Sens 39, B-Natriuretic Peptide 2664.0 H Micro: Microbiology 07/18/23 20:02 Nasal Secretion SARS-CoV-2 & FLU Antigen (Rapid) - Final Imagaing Radiology Impression Chest X-Ray 07/18/23 20:10 IMPRESSION: Right-sided effusion with bilateral lower lobe airspace disease which may represent atelectasis or developing pneumonia. Electronically Signed: Willie Friedman MD at 20:51 EST , Assessment & Plan Assessment/Plan (1) Acute exacerbation of CHF (congestive heart failure): QUALIFIERS: Heart failure type: diastolic Qualified Code(s): I50.33 - Acute on chronic diastolic (congestive) heart failure (2) HAP (hospital-acquired pneumonia): (3) Atrial flutter: QUALIFIERS: Atrial flutter type: typical Qualified Code(s): I48.3 - Typical atrial flutter PLAN: Plan 1. Acute exacerbation of chronic diastolic CHF preserved left ventricular ejection fraction - Admit to PCU. Continue IV Lasix and serialize BNP and chest x-ray to ensure improvement. Check echocardiogram to evaluate ventricular ejection fraction. Finally, will consult cardiology disease patient in the a.m. on rounds with help appreciated in advance. 2. Hospital-acquired pneumonia complicating #1 - Continue broad-spectrum antibiotics with IV Zosyn and IV vancomycin to cover nosocomial pathogens was begun in the ER and await culture and sensitivity data. Give Tylenol as needed for level 1-10 out of 10 pain or fever. 3. Chronic atrial flutter/fibrillation; on warfarin with mild rapid ventricular response present on admission compounding #1 & #2 - Resume supportive care, continue metoprolol and amiodarone as previous. INR was subtherapeutic at 1.8 present on admission. No bridging with Lovenox was done at this time due to recent GI bleed. 4. Recent history of GI bleed with a known history of colonic diverticular disease and previous GI bleed in 2013 - Stable with hemoglobin of 8.8 g/dL present on admission. 5. Chronic kidney disease; stage III-b with baseline creatinine approximately 2.1 mg/dL - Stable. Check daily BMP to ensure continued stability. 6. Remote history of coronary artery disease; status post myocardial infarction with stent in 1999 and history of mitral valve insufficiency - Apparently stable. Continue home medications as previous. 7. Osteoarthritis; with chronic back pain and previous back surgeries causing patient to typically ambulate with a cane generalized weakness and ambulatory dysfunction causing recent admission to the TCU - PT/OT Case management consult and treat for further recommendations with help appreciated in advance. 8. DVT prophylaxis - Patient is on chronic Coumadin for #3 which will be continued. Check daily PT/INR and titrate dose to keep INR 2-3. Total time: Approximately 55 minutes. Charges/Coding Visit Charges Inpatient E&M: 06215 Init Hosp L2
[2023-07-18 22:12] LABS: Lactic Acid 1.5 mmol/L (0.4-1.9)
--- NOTE | 2023-07-18 22:31 | ECHOD_ITS ---
Reason For Study: CHF Procedure This was a 2D Doppler, Color Flow transthoracic echocardiogram. Exam performed portable in patient room. Left Ventricle Normal LV size. Moderate concentric left ventricular hypertrophy. Moderately severe global left ventricular systolic dysfunction. Unable to assess diastolic dysfunction due to arrhythmia. The left ventricular ejection fraction is 35 %. Right Ventricle Normal RV size. Mild global right ventricular systolic dysfunction. Atria The left atrium is severely enlarged. The right atrium is moderately enlarged. Mitral Valve Severe (4+) posteriorly directed mitral valve insufficiency. Tricuspid Valve Moderate (2+) tricuspid valve insufficiency. Right ventricular systolic pressure estimated to be 77 mmHg. Aortic Valve Trisinus/trileaflet aortic valve. Mild (1+) aortic valve insufficiency. Pulmonic Valve The pulmonic valve is not well visualized. Trivial pulmonic valve insufficiency. Great Vessels Mildly dilated aortic root. Pericardium/Pleural No pericardial effusion. MMode/2D Measurements & Calculations LVIDd: 4.5 cm IVSd: 1.6 cm LVOT diam: 2.1 cm LVIDs: 3.3 cm LVPWd: 1.4 cm LVOT area: 3.3 cm2 RVDd: 5.4 cm FS: 25.1 % LA dimension: 6.4 cm LAV(MOD-bp): 170.7 ml LVAd ap4: 32.4 cm2 LAV(MOD-bp) Indexed: 95.2 ml/m2 LVLd ap4: 7.6 cm LAV(MOD-sp2): 190.9 ml EDV(MOD-sp4): 114.2 ml LAV(MOD-sp4): 136.5 ml EDV(sp4-el): 117.7 ml LVAs ap4: 23.0 cm2 LVLs ap4: 7.0 cm ESV(MOD-sp4): 64.6 ml ESV(sp4-el): 63.9 ml EF(MOD-sp4): 43.5 % EF(sp4-el): 45.7 % SV(MOD-sp4): 49.6 ml SV(sp4-el): 53.7 ml LA A4 area: 34.1 cm2 RA A4 area: 26.3 cm2 TAPSE: 1.4 cm Doppler Measurements & Calculations MV E max andrew: 85.8 cm/sec Lat Peak E' Andrew: 17.3 cm/sec Med Peak E' Andrew: 9.7 cm/sec E/E' lat: 5.0 E/E' med: 8.8 MV V2 max: 80.6 cm/sec Ao V2 max: 110.7 cm/sec AI max andrew: 410.1 cm/sec MV max P.6 mmHg Ao max P.9 mmHg AI max P.3 mmHg MV V2 mean: 37.3 cm/sec Ao V2 mean: 75.1 cm/sec MV mean P.71 mmHg Ao mean P.6 mmHg AI dec slope: 188.9 cm/sec2 MV V2 VTI: 13.3 cm Ao V2 VTI: 15.7 cm AI P1/2t: 636.0 msec AV (velocity ratio): 0.73 MVA(VTI): 2.9 cm2 KATIE(I,D): 2.4 cm2 AKTIE(V,D): 2.3 cm2 LV V1 max: 78.0 cm/sec MR max andrew: 603.0 cm/sec SV(LVOT): 38.1 ml LV V1 max P.5 mmHg MR max P.4 mmHg LV V1 mean P.1 mmHg MR mean andrew: 450.6 cm/sec LV V1 mean: 48.3 cm/sec MR mean P.9 mmHg LV V1 VTI: 11.5 cm MR VTI: 159.6 cm TR max andrew: 395.0 cm/sec TR max P.4 mmHg ECHO/Echo Complete Interpretation Summary Moderate concentric left ventricular hypertrophy. Moderately severe global left ventricular systolic dysfunction. Unable to assess diastolic dysfunction due to arrhythmia. The left ventricular ejection fraction is 35 %. Mild global right ventricular systolic dysfunction. The left atrium is severely enlarged. The right atrium is moderately enlarged. Severe (4+) posteriorly directed mitral valve insufficiency. Moderate (2+) tricuspid valve insufficiency. Right ventricular systolic pressure estimated to be 77 mmHg. Mild (1+) aortic valve insufficiency. Mildly dilated aortic root. Ordering Physician: Melvin Pollard Referring Physician: César Chinchilla Performed By: Williams Chvaez RCS
[2023-07-18 23:13] LABS: Troponin-I HS 44 pg/mL (3.0-78.0)
[2023-07-18] MEDS: Vancomycin HCl 1,750 MG in 0.9% Normal Saline (500mL Bag) 500 ML 250 MG IV (23:52)
[2023-07-19] VITALS (16 sets, daily range): BP systolic 118–147; BP diastolic 86–98; PULSE 92–105; RESP 16–18; TEMP 36.4–37; O2SAT 90–96; BMI 22.4
--- NOTE | 2023-07-19 01:41 | PCM.RX.CS ---
Consult Antibiotic Management Pharmacy has been consulted to manage selected antiobiotic: Vancomycin Type of Intervention Type of Consult: New start Labs Labs: Sodium 140 mmol/L (136-145) 07/18/23 19:35 Potassium 4.4 mmol/L (3.5-5.1) 07/18/23 19:35 Chloride 105 mmol/L (98-107) 07/18/23 19:35 Carbon Dioxide 32.0 mmol/L (21.0-32.0) 07/18/23 19:35 Anion Gap 3 (5-15) L 07/18/23 19:35 BUN 47 mg/dL (7-18) H 07/18/23 19:35 Creatinine 2.24 mg/dL (0.70-1.30) H 07/18/23 19:35 Est GFR (MDRD) Af Amer 36 mL/min (>60) L 07/18/23 19:35 Est GFR (MDRD) Non-Af 30 mL/min (>60) L 07/18/23 19:35 BUN/Creatinine Ratio 21.0 RATIO (10-20) H 07/18/23 19:35 Glucose 148 mg/dL (74-106) H 07/18/23 19:35 Microbiology Microbiology: Microbiology 07/18/23 23:59 Mucosa - Nasopharyngeal Coronavirus COVID-19 PCR - Final 07/18/23 20:02 Nasal Secretion SARS-CoV-2 & FLU Antigen (Rapid) - Final Dosing Weight Weight used for dosin.5 kg Estimated Creatinine Clearance Estimated Creatinine Clearance: 24.1 Goal Trough Goal Trough: 15-20 mcg/mL Pharmacy Plan for Drug Dosing Pharmacy Plan for Drug Dosing: Pharmacy Service will continue to monitor and adjust dosing as required. Follow-Up Labs Follow-Up Labs: Trough: Vancomycin Date/Time Labs Ordered Labs to be done on [date and time ordered]: 07/20 @ 3501
[2023-07-19 01:59] LABS: Troponin-I HS 45 pg/mL (3.0-78.0)
--- NOTE | 2023-07-19 02:51 | RAD_ITS ---
STUDY: X-RAY CHEST REASON FOR EXAM: Male, 83 years old. Acute exacerbation CHF TECHNIQUE: Single AP portable view of the chest. COMPARISON: July 18, 2023 FINDINGS: 1. Redemonstration of mild to moderate pulmonary vascular congestion and edema and underlying patchy infiltrates throughout both lungs 2. No change in small bilateral pleural effusions 3. No change in mild cardiomegaly 4. Stable mediastinum and osseous structures There is no demonstrated abnormality of the visualized soft tissue structures of the upper abdomen. RAD/Chest 1 View (Portable) IMPRESSION: * Redemonstration of mild to moderate pulmonary vascular congestion and edema and underlying patchy infiltrates throughout both lungs Electronically Signed: Rd Ha MD at 9:37 EST ,
[2023-07-19] MEDS: Levothyroxine 50 MCG Tablet PO (06:49)
[2023-07-19] MEDS: Piperacil/Tazobactam 3.375 GM in 0.9% Normal Saline (50mL MB+) 50 ML IV ×3 (06:49→21:52)
[2023-07-19] MEDS: Sucralfate 1 GM Tablet PO ×3 (06:49→17:05)
[2023-07-19 07:26] LABS: Absolute Lymphocyte Count 0.57 X10^3/uL (0.83-4.51); Absolute Neutrophil Count 13.7 X10^3/uL (2.0-7.7); Basophil# 0.09 X10^3/uL; Basophil% 0.6 % (0-1); Eosinophil# 0.04 X10^3/uL; Eosinophils% 0.3 % (0-5); Hematocrit 27.5 % (40-54); Hemoglobin 8.6 g/dL (13.0-16.5); Lymphocyte # 0.57 X10^3/ul (0.83-4.51); Lymphocyte % 3.6 % (19-41); Mean Corp Hgb Conc 31.3 g/dL (32-36); Mean Corpuscular Hgb 33.5 pg (27.0-32.0); Mean Platelet Vol. 9.4 fl (6.2-12.0); Monocyte# 1.33 X10^3/uL; Monocyte% 8.4 % (0-10); NRBC Flagged by Analyzer 0.2 % (0-5); Neutrophil % 86.3 % (47-70); POSITIVE DIFFERENTIAL YES; POSITIVE MORPHOLOGY YES; Platelet Count 407 K/mm3 (150-450); RBC Distribution Width CV 21.1 % (11.6-14.6); RBC Distribution Width SD 82.7 fl (35.1-43.9); Red Blood Count 2.57 M/mm3 (4.6-6.2); White Blood Count 15.9 K/mm3 (4.4-11.0)
[2023-07-19 07:35] LABS: International Normalized Ratio 1.9; Prothrombin Time (Protime)PT. 21.7 SECONDS (11.7-14.9)
[2023-07-19 07:39] LABS: Differential Indicated SCAN CRITERIA MET
[2023-07-19 08:02] LABS: BNP,B-Type NATRIURETIC PEPTIDE 3485.5 pg/mL (0-100)
[2023-07-19 08:07] LABS: ALB/GLOB Ratio 0.8 RATIO (0.9-2.4); AST(SGOT) 36 U/L (15-37); Alanine Aminotransfer ALT/SGPT 45 U/L (16-61); Albumin, Serum 2.9 g/dL (3.2-5.0); Alkaline Phosphatase 73 U/L (45-117); Anion Gap 6 (5-15); BUN 45 mg/dL (7-18); BUN/Creat Ratio 20.2 RATIO (10-20); Calcium,Total 8.8 mg/dL (8.5-10.1); Chloride 107 mmol/L (98-107); Creatinine, Serum 2.23 mg/dL (0.70-1.30); EST Glomerular Filtration Rate 30 mL/min (>60); Est Glom Filt Rate - Afr Amer 37 mL/min (>60); Estimated Creatinine Clearance 24.17 ml/min; Globulin 3.8 g/dL (2.2-4.2); Glucose 113 mg/dL (74-106); Phosphorus 3.1 mg/dL (2.5-4.9); Potassium 4.4 mmol/L (3.5-5.1); Protein, Total 6.7 g/dL (6.4-8.2); Sodium Level 142 mmol/L (136-145); Thyroid Stim Hormone (TSH) 2.24 uIU/mL (0.358-3.74)
[2023-07-19 08:10] LABS: Anisocytosis 1+
[2023-07-19] MEDS: Metoprolol Tartrate 25 MG Tablet PO (08:14)
[2023-07-19] MEDS: Famotidine 20 MG Tablet 40 MG PO (08:16)
[2023-07-19] MEDS: proMETHazine 25 MG/ML Syringe IM (10:37)
[2023-07-19] MEDS: 0.9% Saline Lock 10 ML Syringe IV ×2 (10:38→17:04)
[2023-07-19] MEDS: Furosemide 40 MG/4 ML Vial IV (10:39)
--- NOTE | 2023-07-19 12:04 | CASEMGMT ---
SW met with patient. Introduced self and role at [facility]. SW attempted to confirm with patient that his plan is to return to TCU at discharge. However, patient told SW that he cannot talk today, but maybe tomorrow. [facility]
[2023-07-19] MEDS: Albuterol 2.5 MG/3 ML VIAL.NEB. INHALATION (12:35)
--- NOTE | 2023-07-19 13:23 | CON.PCM.CA_ITS ---
Assessment & Plan Assessment/Plan (1) HAP (hospital-acquired pneumonia): PLAN: On antibiotics. Continue to follow as per hospitalist service. (2) Acute on chronic heart failure with preserved ejection fraction (HFpEF): PLAN: Continue furosemide. In view of his chronic kidney disease, increase dose to 80 mg twice daily. Increase beta-blockers as tolerated. SGLT2 inhibitors. (3) Atrial fibrillation: PLAN: On warfarin for anticoagulation. Monitor hemoglobin. Increase metoprolol as tolerated for rate control. Discussed with patient's special education superintendent Dr. Molina, amiodarone is being used for his rate control as well. (4) Coronary artery disease: PLAN: Beta-blockers. (5) Chronic kidney disease, stage 3b: PLAN: Monitor creatinine. HPI Consult Data Date of Consult: 07/19/23 HPI Narrative Reason for Consultation: Congestive heart failure HPI Narrative: This gentleman has past medical history significant for coronary artery disease, chronic diastolic congestive heart failure, chronic kidney disease, atrial fibrillation and anemia of chronic disease. He has been admitted to the hospital with complaints of shortness of breath. His workup has showed right- sided pleural effusion with airspace disease consistent with pneumonia. Also his BNP was noted to be elevated. Per patient, he has been feeling short of breath. Rather vague historian. Feels fatigued. No chest pain. Positive palpitations. [facility] Medical History Acute constipation Acute exacerbation of chronic low back pain Acute gastrointestinal bleeding Acute kidney injury superimposed on chronic kidney disease Ambulates with cane Anemia Anxiety Arthritis Atherosclerotic heart disease of [place] coronary artery without angina pectoris Atrial fibrillation Atypical atrial flutter (12/2020) Back pain Benign prostatic hyperplasia BPH (benign prostatic hyperplasia) Cancer Cardiology follow-up encounter Chronic anemia Chronic heart failure with preserved ejection fraction (HFpEF) Chronic kidney disease Chronic pain Chronic renal insufficiency Colitis COPD (chronic obstructive pulmonary disease) CPAP (continuous positive airway pressure) dependence Debility Diarrhea Difficulty chewing Dysphagia Easy bruising Elevated LFTs Elevated liver enzymes Essential (primary) hypertension Excessive bleeding Gastric reflux GI bleed (2012) Hearing loss, left Hearing loss, right Hiatal hernia High cholesterol History of colon polyps History of diverticulitis History of echocardiogram History of edema History of heart attack History of hyperthyroidism History of leukemia History of pain when walking History of renal disease History of stress test HLD (hyperlipidemia) Hypertension Hypothyroidism Irregular heart beat Kidney disease Kidney stones Myocardial infarct Nausea and vomiting Non-rheumatic tricuspid valve insufficiency Non-smoker Nonrheumatic mitral (valve) insufficiency 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 Osteoarthritis Paroxysmal atrial fibrillation Rheumatoid arthritis Secondary pulmonary arterial hypertension Sleep apnea Sleep apnea Stage 3b chronic kidney disease Thoracic aortic aneurysm (TAA) Thyroid disease Wears glasses Home Medications denosumab 60 mg/mL subcutaneous syringe (Prolia) 60 mg SQ .[id number] BONES 12/09/20 [History Last Taken 11/10/22] tamsulosin 0.4 mg capsule 0.4 mg PO QHS bladder 11/18/21 [History Last Taken 06/20/23] levothyroxine 25 mcg tablet 50 mcg PO DAILY thyroid 02/17/22 [History Last Taken 06/21/23] vitamin B complex 1 cap PO BID supplement 05/01/22 [History Last Taken 02/12/23] linaclotide 72 mcg capsule (Linzess) 72 mcg PO DAILY PRN Diarrhea 06/15/22 [History Last Taken Unknown] ascorbic acid (vitamin C) 500 mg tablet 500 mg PO DAILY supplement 07/20/22 [History Last Taken 06/21/23] finasteride 5 mg tablet 5 mg PO DAILY prostate 08/05/22 [History Last Taken 06/21/23] cholecalciferol (vitamin D3) 25 mcg (1,000 unit) capsule (Vitamin D3) 1,000 unit PO DAILY supplement 02/19/23 [History Last Taken Unknown] polyethylene glycol 3350 17 gram oral powder packet 17 g PO DAILY constipation 02/19/23 [History Last Taken Unknown] amiodarone 100 mg tablet 100 mg PO BID heart 02/21/23 [History Last Taken 06/21/23] sucralfate 1 gram tablet 1 g PO TID@0700,1100,1600 stomach 30 days #90 tabs 03/21/23 [Rx Last Taken 06/21/23] famotidine 40 mg tablet 40 mg PO DAILY stomach #30 tabs 04/11/23 [Rx Last Taken Unknown] lactulose 10 gram/15 mL oral solution 10 g (15 mL) PO DAILY constipation 30 days #450 mL 05/18/23 [Rx Last Taken Unknown] loratadine 10 mg tablet (Claritin) 10 mg PO DAILY allergies 06/16/23 [History Last Taken Unknown] warfarin 3 mg tablet (Jantoven) 3 mg PO SuTuThSa@1700 blood thinner #0 tabs 06/21/23 [Rx Last Taken 06/19/23] warfarin 4 mg tablet See Rx Instructions .Route .COMPLEX blood thinner #60 tabs 06/21/23 [Rx Last Taken 06/20/23] acetaminophen 500 mg tablet 1,000 mg (2 x 500 mg) PO Q8 #0 tabs 07/06/23 [Rx Last Taken Unknown] furosemide 40 mg tablet 40 mg PO DAILY 30 days #30 tabs 07/06/23 [Rx Last Taken Unknown] metoprolol tartrate 25 mg tablet 25 mg PO BID #0 tabs 07/06/23 [Rx Last Taken Unknown] Allergy/AdvReac Type Severity Reaction Status Date / Time diclofenac Allergy rash Verified 07/15/23 14:49 prednisone Allergy Rash Verified 07/15/23 14:49 Family History Father Cancer Prostate cancer Mother Hypertension Sister Hypertension Surgical History History of back surgery History of back surgery History of cardiac catheterization History of cardioversion (06/18/19) History of coronary artery stent placement (08/04/00) History of electrophysiologic study (08/08/00) History of esophagogastroduodenoscopy (EGD) History of hemorrhoidectomy History of hernia repair History of left heart catheterization (07/17/12) History of Zenaida fundoplication History of radiofrequency ablation procedure for cardiac arrhythmia (11/11/11) Social History household members: none Smoking Status: Never smoker alcohol intake: never substance use type: does not use caffeine: No Physical Exam Narrative No apparent distress. Heart sounds 1 and 2 are noted. Irregularly irregular. Tachycardic. Few crepitations both lung bases. Alert. Awake. Moving all 4 extremities. 1+ bilateral lower extremity edema. Risk Stratification Risk Stratification Applicable: No Objective Data Vital Signs: Vital Signs Temp Pulse Resp BP Pulse Ox O2 Del Method O2 Flow Rate 97.5 F L 92 18 127/97 H 94 Nasal Cannula 5 07/19/23 12:30 07/19/23 12:35 07/19/23 12:35 07/19/23 12:30 07/19/23 12:35 07/19/23 12:35 07/19/23 12:35 Oxygen Flow Rate (L/min) 5 Oxygen Delivery Method Nasal Cannula Weight: 147 lb 7.828 oz Body Mass Index (BMI) 22.4 Intake & Output: Intake and Output for Last 24 Hours 07/17/23 07/18/23 07/19/23 23:59 23:59 23:59 Intake Total 50 / 50 895 / 895 Output Total 225 / 225 Balance -175 / -175 895 / 895 Lab / Micro Data 07/19/23 06:45 07/19/23 06:45 Labs: Laboratory Results - last 24 hr 07/18/23 19:30: Urine Color Yellow, Urine Clarity Clear, Urine pH 5.0, Ur Spec ific [place] 1.015, Urine Protein 30 H, Urine Glucose (UA) Normal, Urine Ketones Negative, Urine Occult Blood 10 H, Urine Nitrite Negative, Urine Bilirubin Negative, Urine Urobilinogen Normal, Ur Leukocyte Esterase 25 H, Urine RBC 0-5 SEEN, Urine WBC 0-5 SEEN, Ur Squamous Epith Cells 0-5 SEEN, Urine Bacteria 0 SEEN, Urine Mucus 0 SEEN 07/18/23 19:35: WBC 13.7 H, RBC 2.61 L, Hgb 8.8 L, Hct 28.1 L, MCV 107.7 H, MCH 33.7 H, MCHC 31.3 L, RDW Std Deviation 85.0 H, RDW Coeff of Pablo 21.4 H, Plt Count 390, MPV 9.7, Immature Gran % (Auto) 0.800, Neut % (Auto) 86.9 H, Lymph % (Auto) 4.2 L, [place] % (Auto) 7.0, Eos % (Auto) 0.5, Baso % (Auto) 0.6, Absolute Neuts (auto) 11.9 H, Absolute Lymphs (auto) 0.58 L, Nucleated RBC % 0, Differential Comment , PT 21.1 H, INR 1.8, Sodium 140, Potassium 4.4, Chloride 105, Carbon Dioxide 32.0, Anion Gap 3 L, BUN 47 H, Creatinine 2.24 H, Estim Creat Clear Calc 24.60, Est GFR (MDRD) Af Amer 36 L, Est GFR (MDRD) Non-Af 30 L, BUN/Creatinine Ratio 21.0 H, Glucose 148 H, Calcium 8.6, Troponin I High Sens 39, B-Natriuretic Peptide 2664.0 H 07/18/23 21:36: Lactic Acid 1.5 07/18/23 22:39: Troponin I High Sens 44 07/19/23 01:31: Troponin I High Sens 45 07/19/23 06:45: WBC 15.9 H, RBC 2.57 L, Hgb 8.6 L, Hct 27.5 L, MCV 107.0 H, MCH 33.5 H, MCHC 31.3 L, RDW Std Deviation 82.7 H, RDW Coeff of Pablo 21.1 H, Plt Count 407, MPV 9.4, Immature Gran % (Auto) 0.800, Neut % (Auto) 86.3 H, Lymph % (Auto) 3.6 L, [place] % (Auto) 8.4, Eos % (Auto) 0.3, Baso % (Auto) 0.6, Absolute Neuts (auto) 13.7 H, Absolute Lymphs (auto) 0.57 L, Nucleated RBC % 0.2, Differential Comment COMMENT, Anisocytosis 1+, PT 21.7 H, INR 1.9, Sodium 142, Potassium 4.4, Chloride 107, Carbon Dioxide 29.0, Anion Gap 6, BUN 45 H, Creatinine 2.23 H, Estim Creat Clear Calc 24.17, Est GFR (MDRD) Af Amer 37 L, Est GFR (MDRD) Non-Af 30 L, BUN/Creatinine Ratio 20.2 H, Glucose 113 H, Calcium 8.8, Phosphorus 3.1, Total Bilirubin 1.70 H, AST 36, ALT 45, Alkaline Phosphatase 73, Troponin I High Sens Cancelled, B-Natriuretic Peptide 3485.5 H, Total Protein 6.7, Albumin 2.9 L, Globulin 3.8, Albumin/Globulin Ratio 0.8 L, TSH 2.24 Micro: Microbiology 07/18/23 23:59 Mucosa - Nasopharyngeal Coronavirus COVID-19 PCR - Final 07/18/23 20:02 Nasal Secretion SARS-CoV-2 & FLU Antigen (Rapid) - Final Cardiology Labs/Tests 07/18/23 19:30: Urine Color Yellow, Urine Clarity Clear, Urine pH 5.0, Ur Specific [place] 1.015, Urine Protein 30 H, Urine Glucose (UA) Normal, Urine Ketones Negative, Urine Occult Blood 10 H, Urine Nitrite Negative, Urine Bilirubin Negative, Urine Urobilinogen Normal, Ur Leukocyte Esterase 25 H, Urine RBC 0-5 SEEN, Urine WBC 0-5 SEEN 07/18/23 19:35: WBC 13.7 H, RBC 2.61 L, Hgb 8.8 L, Hct 28.1 L, MCV 107.7 H, MCH 33.7 H, MCHC 31.3 L, Plt Count 390, MPV 9.7, Immature Gran % (Auto) 0.800, Neut % (Auto) 86.9 H, Lymph % (Auto) 4.2 L, [place] % (Auto) 7.0, Eos % (Auto) 0.5, Baso % (Auto) 0.6, Absolute Neuts (auto) 11.9 H, Nucleated RBC % 0, PT 21.1 H, INR 1.8, Sodium 140, Potassium 4.4, Chloride 105, Carbon Dioxide 32.0, Anion Gap 3 L , BUN 47 H, Creatinine 2.24 H, Est GFR (MDRD) Af Amer 36 L, Est GFR (MDRD) Non- Af 30 L, BUN/Creatinine Ratio 21.0 H, Glucose 148 H, Calcium 8.6, B-Natriuretic Peptide 2664.0 H 07/18/23 21:36: Lactic Acid 1.5 07/19/23 06:45: WBC 15.9 H, RBC 2.57 L, Hgb 8.6 L, Hct 27.5 L, MCV 107.0 H, MCH 33.5 H, MCHC 31.3 L, Plt Count 407, MPV 9.4, Immature Gran % (Auto) 0.800, Neut % (Auto) 86.3 H, Lymph % (Auto) 3.6 L, [place] % (Auto) 8.4, Eos % (Auto) 0.3, Baso % (Auto) 0.6, Absolute Neuts (auto) 13.7 H, Nucleated RBC % 0.2, PT 21.7 H, INR 1.9, Sodium 142, Potassium 4.4, Chloride 107, Carbon Dioxide 29.0, Anion Gap 6, BUN 45 H, Creatinine 2.23 H, Est GFR (MDRD) Af Amer 37 L, Est GFR (MDRD) Non-Af 30 L, BUN/Creatinine Ratio 20.2 H, Glucose 113 H, Calcium 8.8, Phosphorus 3.1, Total Bilirubin 1.70 H, B-Natriuretic Peptide 3485.5 H Rhythm: EKG: ECHO: Stress Test: Cardiac Cath: PCI: CT Surgery: Holter monitor: EPS: PPM: CXR: Chest CT Scan: Radiography Diagnostic Testing: Radiology Impression Chest X-Ray 07/18/23 20:10 IMPRESSION: Right-sided effusion with bilateral lower lobe airspace disease which may represent atelectasis or developing pneumonia. Electronically Signed: Willie Friedman MD at 20:51 EST , Chest X-Ray 07/19/23 02:51 IMPRESSION: * Redemonstration of mild to moderate pulmonary vascular congestion and edema and underlying patchy infiltrates throughout both lungs Electronically Signed: Rd Ha MD at 9:37 EST ,
[2023-07-19] MEDS: Amiodarone 200 MG Tablet 100 MG GT ×2 (13:33→21:51)
[2023-07-19] MEDS: Potassium Chloride Oral Tablet 20 MEQ PO ×2 (13:34→21:50)
[2023-07-19] MEDS: Finasteride 5 MG Tablet PO (13:34)
--- NOTE | 2023-07-19 16:15 | CASEMGMT ---
MAGNUS received a voice mail from patient's sister Olivia. Olivia said patient is going to be moved to a residential. Olivia toured [facility] and she does not want patient to go there. Olivia spoke with Zaira at [facility] and Zaira told her they have openings. Olivia would like SW to send a referral to [facility]. MAGNUS reviewed patient's chart from his TCU stay and it looks like [facility] did not have beds when referrals were made before. Also, financial paperwork is in the process including Medicaid. At this time patient will likely go back to TCU and then transition to another facility. MAGNUS will pass along this information to TCU SW. MAGNUS called Olivia and let her know patient will likely go back to TCU and finish up paperwork for Medicaid etc. before he will transition to another facility. [facility] [employer] RAVI
[2023-07-19] MEDS: Furosemide 100 MG/10 ML Vial 80 MG IV (17:02)
[2023-07-19] MEDS: Empagliflozin 10 MG Tablet PO (17:03)
--- NOTE | 2023-07-19 19:41 | PCM.PN.HOSP ---
Reason for Visit Reason for Visit: Diagnoses Atherosclerotic heart disease of [place] coronary artery without angina pectoris (07/18/23) Typical atrial flutter (07/18/23) Unspecified atrial fibrillation (07/18/23) Unspecified atrial flutter (07/18/23) Acute on chronic diastolic (congestive) heart failure (07/18/23) Heart failure, unspecified (07/18/23) Pneumonia, unspecified organism (07/18/23) Chronic kidney disease, stage 3b (07/18/23) Nosocomial condition (07/18/23) Subjective Subjective Patient was seen and examined today, he is currently on 5 L of oxygen via nasal cannula, I made his decision today to take him off vancomycin and continue his Zosyn. Echocardiogram today showed reduced ejection fraction of 35% with severe pulmonary hypertension. Patient is still receiving IV diuresis. Patient does not complain of any fevers or chills. White blood cell count today was 15.9. Patient is afebrile Objective Data Objective Data Vital Signs: Vital Signs Temp Pulse Resp BP Pulse Ox O2 Del Method O2 Flow Rate 98.4 F 103 H 18 143/87 H 94 Nasal Cannula 5 07/19/23 17:25 07/19/23 17:25 07/19/23 17:25 07/19/23 17:25 07/19/23 17:25 07/19/23 17:25 07/19/23 13:37 Oxygen Flow Rate (L/min) 5 Oxygen Delivery Method Nasal Cannula Weight: 66.9 kg Body Mass Index (BMI) 22.4 Intake & Output: Intake and Output for Last 24 Hours 07/17/23 07/18/23 07/19/23 23:59 23:59 23:59 Intake Total 50 / 50 1355 / 1355 Output Total 225 / 225 300 / 300 Balance -175 / -175 1055 / 1055 Lab / Micro Data 07/20/23 03:32 07/20/23 03:32 Labs: Laboratory Results - last 24 hr 07/18/23 19:30: Urine Color Yellow, Urine Clarity Clear, Urine pH 5.0, Ur Specific [place] 1.015, Urine Protein 30 H, Urine Glucose (UA) Normal, Urine Ketones Negative, Urine Occult Blood 10 H, Urine Nitrite Negative, Urine Bilirubin Negative, Urine Urobilinogen Normal, Ur Leukocyte Esterase 25 H, Urine RBC 0-5 SEEN, Urine WBC 0-5 SEEN, Ur Squamous Epith Cells 0-5 SEEN, Urine Bacteria 0 SEEN, Urine Mucus 0 SEEN 07/18/23 19:35: WBC 13.7 H, RBC 2.61 L, Hgb 8.8 L, Hct 28.1 L, MCV 107.7 H, MCH 33.7 H, MCHC 31.3 L, RDW Std Deviation 85.0 H, RDW Coeff of Pablo 21.4 H, Plt Count 390, MPV 9.7, Immature Gran % (Auto) 0.800, Neut % (Auto) 86.9 H, Lymph % (Auto) 4.2 L, [place] % (Auto) 7.0, Eos % (Auto) 0.5, Baso % (Auto) 0.6, Absolute Neuts (auto) 11.9 H, Absolute Lymphs (auto) 0.58 L, Nucleated RBC % 0, Differential Comment , PT 21.1 H, INR 1.8, Sodium 140, Potassium 4.4, Chloride 105, Carbon Dioxide 32.0, Anion Gap 3 L, BUN 47 H, Creatinine 2.24 H, Estim Creat Clear Calc 24.60, Est GFR (MDRD) Af Amer 36 L, Est GFR (MDRD) Non-Af 30 L, BUN/Creatinine Ratio 21.0 H, Glucose 148 H, Calcium 8.6, Troponin I High Sens 39, B-Natriuretic Peptide 2664.0 H 07/18/23 21:36: Lactic Acid 1.5 07/18/23 22:39: Troponin I High Sens 44 07/19/23 01:31: Troponin I High Sens 45 07/19/23 06:45: WBC 15.9 H, RBC 2.57 L, Hgb 8.6 L, Hct 27.5 L, MCV 107.0 H, MCH 33.5 H, MCHC 31.3 L, RDW Std Deviation 82.7 H, RDW Coeff of Pablo 21.1 H, Plt Count 407, MPV 9.4, Immature Gran % (Auto) 0.800, Neut % (Auto) 86.3 H, Lymph % (Auto) 3.6 L, [place] % (Auto) 8.4, Eos % (Auto) 0.3, Baso % (Auto) 0.6, Absolute Neuts (auto) 13.7 H, Absolute Lymphs (auto) 0.57 L, Nucleated RBC % 0.2, Differential Comment COMMENT, Anisocytosis 1+, PT 21.7 H, INR 1.9, Sodium 142, Potassium 4.4, Chloride 107, Carbon Dioxide 29.0, Anion Gap 6, BUN 45 H, Creatinine 2.23 H, Estim Creat Clear Calc 24.17, Est GFR (MDRD) Af Amer 37 L, Est GFR (MDRD) Non-Af 30 L, BUN/Creatinine Ratio 20.2 H, Glucose 113 H, Calcium 8.8, Phosphorus 3.1, Total Bilirubin 1.70 H, AST 36, ALT 45, Alkaline Phosphatase 73, Troponin I High Sens Cancelled, B-Natriuretic Peptide 3485.5 H, Total Protein 6.7, Albumin 2.9 L, Globulin 3.8, Albumin/Globulin Ratio 0.8 L, TSH 2.24 Micro: Microbiology 07/18/23 23:59 Mucosa - Nasopharyngeal Coronavirus COVID-19 PCR - Final 07/18/23 20:02 Nasal Secretion SARS-CoV-2 & FLU Antigen (Rapid) - Final Radiography Diagnostic Testing: Radiology Impression Chest X-Ray 07/18/23 20:10 IMPRESSION: Right-sided effusion with bilateral lower lobe airspace disease which may represent atelectasis or developing pneumonia. Electronically Signed: Willie Friedman MD at 20:51 EST , Echocardiogram 07/18/23 22:31 Interpretation Summary Moderate concentric left ventricular hypertrophy. Moderately severe global left ventricular systolic dysfunction. Unable to assess diastolic dysfunction due to arrhythmia. The left ventricular ejection fraction is 35 %. Mild global right ventricular systolic dysfunction. The left atrium is severely enlarged. The right atrium is moderately enlarged. Severe (4+) posteriorly directed mitral valve insufficiency. Moderate (2+) tricuspid valve insufficiency. Right ventricular systolic pressure estimated to be 77 mmHg. Mild (1+) aortic valve insufficiency. Mildly dilated aortic root. Ordering Physician: Melvin Pollard Referring Physician: César Chinchilla Performed By: Williams Chavez RCS Chest X-Ray 07/19/23 02:51 IMPRESSION: * Redemonstration of mild to moderate pulmonary vascular congestion and edema and underlying patchy infiltrates throughout both lungs Electronically Signed: Rd Ha MD at 9:37 EST Reading Location ID and State: [facility] / [place] , Service support , Physical Exam Const alert, no apparent distress and average body habitus General Appearance: cooperative, well kempt and well developed Orientation / Consciousness: awake, oriented to person and oriented to place HEENT normocephalic, head/scalp atraumatic and moist oral mucous membranes Eyes PERRL, EOMs intact bilaterally and conjunctivae normal Neck supple, no JVD, thyroid normal and no carotid bruits General: trachea midline Resp normal respiratory effort, no retractions and no use of accessory muscles Resp Narrative: Breath sounds are diminished particularly at the right lung base, there are fine rales noted over the lower lung salvador Auscultation: Negative for rales, rhonchi or wheezes Cardio S1 normal heart sound, S2 normal heart sound, no murmurs, no rub and no gallops Cardio Narrative: Heart rate and rhythm is irregular GI normal to inspection, nondistended, normoactive bowel sounds, soft to palpation, non-tender and non-distended Skin no rashes or lesions noted General Skin Exam: no breakdown Neuro CN's II-XII intact bilaterally, moves all extremities, no focal motor deficits and no sensory deficits noted Sensorium / Orientation: awake, alert, oriented to person and oriented to place Speech: speech normal Psych affect normal Assessment & Plan Assessment/Plan (1) Acute exacerbation of CHF (congestive heart failure): QUALIFIERS: Heart failure type: diastolic Qualified Code(s): I50.33 - Acute on chronic diastolic (congestive) heart failure PLAN: Plan 1. Acute on chronic congestive heart failure with reduced ejection fraction-patient will remain on IV Lasix, chest x-ray will be monitored as necessary #2 Healthcare acquired pneumonia-patient remains on Zosyn at this time, CBC will be monitored #3 chronic atrial flutter/fibrillation-patient remains on rate limiting agents and Coumadin, INR will be monitored #4 chronic kidney disease stage IIIb-BMP will be monitored, complicates care, medical course, recovery, and prognosis #5 coronary artery disease-stable at this time, patient was seen by cardiology today and they are participating in his care #6 severe pulmonary hypertension-continue IV diuresis Total clinical time spent by myself addressing the patient's medical issues, reviewing all of his data, and collaborating with patient's care team: 35 minutes Charges/Coding Visit Charges Inpatient E&M: 83283 Subs Hosp L2
[2023-07-19] MEDS: Tamsulosin HCl 0.4 MG Capsule PO (21:51)
[2023-07-19] MEDS: Magnesium Chloride 64 MG Delay Rel.Tablet 128 MG PO (21:53)
[2023-07-19] MEDS: Metoprolol Tartrate 50 MG Tablet PO (21:53)
[2023-07-19] MEDS: Vitamin B Comp W-C Capsule 1 CAP PO (23:28)
[2023-07-20] VITALS (14 sets, daily range): BP systolic 112–137; BP diastolic 67–95; PULSE 86–113; RESP 16–20; TEMP 36.3–37; O2SAT 90–95; BMI 22.3
[2023-07-20 04:10] LABS: Absolute Lymphocyte Count 0.68 X10^3/uL (0.83-4.51); Absolute Neutrophil Count 12.9 X10^3/uL (2.0-7.7); Basophil# 0.08 X10^3/uL; Basophil% 0.5 % (0-1); Eosinophil# 0.09 X10^3/uL; Eosinophils% 0.6 % (0-5); Hematocrit 27.2 % (40-54); Hemoglobin 8.3 g/dL (13.0-16.5); Lymphocyte # 0.68 X10^3/ul (0.83-4.51); Lymphocyte % 4.4 % (19-41); Mean Corp Hgb Conc 30.5 g/dL (32-36); Mean Corpuscular Hgb 32.8 pg (27.0-32.0); Mean Corpuscular Volume 107.5 fL (80-94); Mean Platelet Vol. 9.7 fl (6.2-12.0); Monocyte% 9.1 % (0-10); NRBC Flagged by Analyzer 0.4 % (0-5); Neutrophil # 12.92 X10^3/uL (2.7-7.7); Neutrophil % 84.5 % (47-70); POSITIVE MORPHOLOGY YES; Platelet Count 370 K/mm3 (150-450); RBC Distribution Width CV 20.9 % (11.6-14.6); RBC Distribution Width SD 82.3 fl (35.1-43.9); Red Blood Count 2.53 M/mm3 (4.6-6.2); White Blood Count 15.3 K/mm3 (4.4-11.0)
[2023-07-20 04:15] LABS: Differential Indicated SCAN CRITERIA MET
[2023-07-20 04:44] LABS: ALB/GLOB Ratio 0.8 RATIO (0.9-2.4); AST(SGOT) 36 U/L (15-37); Alanine Aminotransfer ALT/SGPT 44 U/L (16-61); Albumin, Serum 2.8 g/dL (3.2-5.0); Alkaline Phosphatase 63 U/L (45-117); Anion Gap 9 (5-15); BUN 47 mg/dL (7-18); BUN/Creat Ratio 18.4 RATIO (10-20); Calcium,Total 8.2 mg/dL (8.5-10.1); Chloride 106 mmol/L (98-107); Creatinine, Serum 2.55 mg/dL (0.70-1.30); EST Glomerular Filtration Rate 26 mL/min (>60); Est Glom Filt Rate - Afr Amer 31 mL/min (>60); Estimated Creatinine Clearance 21.01 ml/min; Globulin 3.6 g/dL (2.2-4.2); Glucose 116 mg/dL (74-106); Protein, Total 6.4 g/dL (6.4-8.2); Sodium Level 144 mmol/L (136-145)
[2023-07-20] MEDS: Levothyroxine 50 MCG Tablet PO (05:03)
[2023-07-20] MEDS: Piperacil/Tazobactam 3.375 GM in 0.9% Normal Saline (50mL MB+) 50 ML IV ×3 (05:04→21:34)
[2023-07-20 05:32] LABS: Anisocytosis 2+; Differential Comment SCANNED; Hypochromasia 1+; Macrocytosis 2+
[2023-07-20] MEDS: Sucralfate 1 GM Tablet PO ×3 (06:23→17:13)
[2023-07-20] MEDS: Albuterol 2.5 MG/3 ML VIAL.NEB. INHALATION ×2 (06:55→19:33)
[2023-07-20 08:58] LABS: International Normalized Ratio 2.2; Prothrombin Time (Protime)PT. 24.8 SECONDS (11.7-14.9)
--- NOTE | 2023-07-20 09:03 | PCM.PN.CARD ---
Subjective Subjective Feels slightly better. Objective Data Vital Signs: Vital Signs Temp Pulse Resp BP Pulse Ox O2 Del Method O2 Flow Rate 97.8 F 92 17 137/88 H 95 Nasal Cannula 5 07/20/23 06:37 07/20/23 06:37 07/20/23 06:37 07/20/23 06:37 07/20/23 06:55 07/20/23 06:55 07/20/23 06:55 Oxygen Flow Rate (L/min) 5 Oxygen Delivery Method Nasal Cannula Weight: 146 lb 9.718 oz Body Mass Index (BMI) 22.3 Intake & Output: Intake and Output for Last 24 Hours 07/18/23 07/19/23 07/20/23 23:59 23:59 23:59 Intake Total 50 / 50 1385 / 1385 50 / 50 Output Total 225 / 225 600 / 600 150 / 150 Balance -175 / -175 785 / 785 -100 / -100 Lab / Micro Data 07/20/23 03:32 07/20/23 03:32 Labs: Laboratory Results - last 24 hr 07/20/23 03:32: WBC 15.3 H, RBC 2.53 L, Hgb 8.3 L, Hct 27.2 L, MCV 107.5 H, MCH 32.8 H, MCHC 30.5 L, RDW Std Deviation 82.3 H, RDW Coeff of Pablo 20.9 H, Plt Count 370, MPV 9.7, Immature Gran % (Auto) 0.900, Neut % (Auto) 84.5 H, Lymph % (Auto) 4.4 L, Mora % (Auto) 9.1, Eos % (Auto) 0.6, Baso % (Auto) 0.5, Absolute Neuts (auto) 12.9 H, Absolute Lymphs (auto) 0.68 L, Nucleated RBC % 0.4, Differential Comment SCANNED, Hypochromasia 1+, Anisocytosis 2+, Macrocytosis 2+, Sodium 144, Potassium 4.0, Chloride 106, Carbon Dioxide 29.0, Anion Gap 9, BUN 47 H, Creatinine 2.55 H, Estim Creat Clear Calc 21.01, Est GFR (MDRD) Af Amer 31 L, Est GFR (MDRD) Non-Af 26 L, BUN/Creatinine Ratio 18.4, Glucose 116 H, Calcium 8.2 L, Total Bilirubin 1.60 H, AST 36, ALT 44, Alkaline Phosphatase 63, Total Protein 6.4, Albumin 2.8 L, Globulin 3.6, Albumin/Globulin Ratio 0.8 L 07/20/23 08:19: PT 24.8 H, INR 2.2 Cardiology Labs/Tests 07/20/23 03:32: WBC 15.3 H, RBC 2.53 L, Hgb 8.3 L, Hct 27.2 L, MCV 107.5 H, MCH 32.8 H, MCHC 30.5 L, Plt Count 370, MPV 9.7, Immature Gran % (Auto) 0.900, Neut % (Auto) 84.5 H, Lymph % (Auto) 4.4 L, Mora % (Auto) 9.1, Eos % (Auto) 0.6, Baso % (Auto) 0.5, Absolute Neuts (auto) 12.9 H, Nucleated RBC % 0.4, Sodium 144, Potassium 4.0, Chloride 106, Carbon Dioxide 29.0, Anion Gap 9, BUN 47 H, Creatinine 2.55 H, Est GFR (MDRD) Af Amer 31 L, Est GFR (MDRD) Non-Af 26 L, BUN/Creatinine Ratio 18.4, Glucose 116 H, Calcium 8.2 L, Total Bilirubin 1.60 H 07/20/23 08:19: PT 24.8 H, INR 2.2 Rhythm: EKG: ECHO: Stress Test: Cardiac Cath: PCI: CT Surgery: Holter monitor: EPS: PPM: CXR: Chest CT Scan: Radiography Diagnostic Testing: Radiology Impression Echocardiogram 07/18/23 22:31 Interpretation Summary Moderate concentric left ventricular hypertrophy. Moderately severe global left ventricular systolic dysfunction. Unable to assess diastolic dysfunction due to arrhythmia. The left ventricular ejection fraction is 35 %. Mild global right ventricular systolic dysfunction. The left atrium is severely enlarged. The right atrium is moderately enlarged. Severe (4+) posteriorly directed mitral valve insufficiency. Moderate (2+) tricuspid valve insufficiency. Right ventricular systolic pressure estimated to be 77 mmHg. Mild (1+) aortic valve insufficiency. Mildly dilated aortic root. Ordering Physician: Melvin Pollard Referring Physician: César Chinchilla Performed By: Williams Cahvez RCS Chest X-Ray 07/19/23 02:51 IMPRESSION: * Redemonstration of mild to moderate pulmonary vascular congestion and edema and underlying patchy infiltrates throughout both lungs Electronically Signed: Rd Ha MD at 9:37 EST Reading Location ID and State: [facility] / [place] , Service support , Physical Exam Narrative No apparent distress. Heart sounds 1 and 2 are noted. Irregularly irregular. Tachycardic. Few crepitations both lung bases. Alert. Awake. Moving all 4 extremities. No ankle edema. Assessment & Plan Assessment/Plan (1) Combined systolic and diastolic congestive heart failure: PLAN: Continue diuretics. However increase in creatinine noted. Decrease Lasix to 40 mg once daily. If the creatinine stabilizes, then will try low-dose ARIELLE inhibitor. Continue metoprolol. (2) Mitral regurgitation: PLAN: Severe mitral valve regurgitation. For afterload reduction. Start hydralazine. Nitrates. (3) Atrial fibrillation: PLAN: On warfarin for anticoagulation. Monitor hemoglobin. Ventricular rate still not adequately controlled. Increase amiodarone to 200 mg twice daily. (4) Pulmonary hypertension: PLAN: Likely secondary to severe mitral regurgitation. See above. (5) Coronary artery disease: PLAN: Beta-blockers. (6) HAP (hospital-acquired pneumonia): PLAN: On antibiotics. Continue to follow as per hospitalist service. (7) Chronic kidney disease, stage 3b: PLAN: Monitor creatinine.
[2023-07-20] MEDS: Finasteride 5 MG Tablet PO (09:28)
[2023-07-20] MEDS: Metoprolol Tartrate 50 MG Tablet PO (09:28)
[2023-07-20] MEDS: Magnesium Chloride 64 MG Delay Rel.Tablet 128 MG PO ×2 (09:28→21:35)
[2023-07-20] MEDS: Vitamin B Comp W-C Capsule 1 CAP PO ×2 (09:28→21:35)
[2023-07-20] MEDS: Famotidine 20 MG Tablet 40 MG PO (09:28)
[2023-07-20] MEDS: Cholecalciferol (VIT D3) 25 MCG TABLET (1,000 UNITS) PO (09:28)
[2023-07-20] MEDS: Empagliflozin 10 MG Tablet PO (09:28)
[2023-07-20] MEDS: Ascorbic Acid 500 MG Tablet PO (09:28)
[2023-07-20] MEDS: Potassium Chloride Oral Tablet 20 MEQ PO ×2 (09:28→21:36)
--- NOTE | 2023-07-20 11:02 | EX.PCM.CONCC ---
Assessment & Plan Assessment/Plan (1) Combined systolic and diastolic congestive heart failure: QUALIFIERS: Heart failure chronicity: acute on chronic Qualified Code(s): I50.43 - Acute on chronic combined systolic (congestive) and diastolic (congestive) heart failure (2) Pulmonary hypertension: (3) Atrial flutter: QUALIFIERS: Atrial flutter type: typical Qualified Code(s): I48.3 - Typical atrial flutter (4) Hypoxia: (5) Secondary pulmonary arterial hypertension: PLAN: Plan RECOMMENDATIONS: 1. Continue cardiac optimization per cardiology 2. Wean oxygen as tolerated 3. Discontinue antibiotics once culture negative 4. Consider right heart cath as an outpatient 5. Walking oximetry prior to discharge IMPRESSIONS: 1. Acute hypoxic respiratory insufficiency secondary to acute on chronic combined CHF/A-fib with RVR Cardiology working on optimizing. Patient would likely benefit from improved rate control. Patient does have elevated pulmonary artery pressures, but this is difficult to interpret in the setting of volume overload. Patient is on diuretics at this time. Low clinical suspicion for pneumonia despite elevated white blood cell count. Patient is not having clinical symptoms such as purulent sputum or fevers. Cannot rule out an indolent infection, but patient's weight is up 15 to 30 pounds from his baseline. Patient did have a normal pulmonary function test just a year ago secondary to amiodarone. 2. Pulmonary hypertension Clinical suspicion for type II pulmonary hypertension. Elevated pulmonary pressures in the setting of volume overload are very difficult to interpret. Patient would benefit from volume optimization and a right heart catheterization to evaluate pulmonary pressures prior to initiation of any vasoactive medications. 3. Chronic kidney disease stage IIIb Patient does have an elevated creatinine at this time. Patient has been receiving diuretics. Diuretics were decreased this morning. May need to space out dosing versus the use of a drip. No indication for renal replacement therapy at this time, but this does complicate diuretic approach. I's and O's have been an accurate, so the use of daily weights will be necessary. 4. Advanced age/CAD/protracted hospitalization/hyperlipidemia/history of GI bleed/osteoporosis/debility Complicates care, management, recovery and prognosis. Okay to continue with current medications. INR is therapeutic, but patient is not showing any signs or symptoms of GI bleed at this time. HPI Consult Data Date of Consult: 07/20/23 HPI Narrative HPI Narrative: RICHIE HANSEN is an 83 M, with past medical history listed below, who presented to [facility] on 07/18/2023 from the TCU secondary to progressive shortness of breath. Patient has had a very complicated course secondary to congestive heart failure. Patient reportedly had developed significant shortness of breath with working with physical therapy and presented to the ER for evaluation. Patient had similar type symptoms on July 02 when he was originally hospitalized. Patient did state that he was not on supplemental oxygen prior to being hospitalized. In the ER, patient was afebrile, but tachycardic at 113 bpm. Patient was requiring 4 L nasal cannula to maintain saturations. Laboratory workup was relatively unremarkable except for a leukocytosis of 13.7 with a hemoglobin of 8.8 and a creatinine of 2.24. Chest x-ray showed a right-sided pleural effusion, so the patient was given IV Lasix and empiric antibiotics. Patient does have a history of chronic A-fib/flutter and was continued on metoprolol and amiodarone. Patient reportedly has had issues with recurrent GI bleeds in the past. Over the course of the hospitalization, patient has received diuretic therapy. However, patient still requires supplemental oxygen, so a pulmonary consult was obtained. Patient overall feels subjectively grossly unchanged compared to initial hospitalization. Patient states he feels swollen. Patient has had a cough productive of liquidy sputum. Patient has not had any fevers or chills. Patient will occasionally have shortness of breath at rest, but routinely has issues with minimal exertion. Patient is not reporting any current chest pain, but can have some palpitations, especially with exertion. Patient is unaware of any previous lung pathology. Patient has had pulmonary function test previously secondary to amiodarone. Patient is not reporting any rashes or swollen joints. Patient does report some back stiffness, but attributes this to the bed. Review of systems otherwise negative from a constitutional, HEENT, respiratory, cardiovascular, GI, genitourinary, musculoskeletal, skin, neurologic, psychiatric and hematologic system unless stated above. [facility] Medical History Acute constipation Acute exacerbation of chronic low back pain Acute gastrointestinal bleeding Acute kidney injury superimposed on chronic kidney disease Ambulates with cane Anemia Anxiety Arthritis Atherosclerotic heart disease of igiugig coronary artery without angina pectoris Atrial fibrillation Atypical atrial flutter (12/2020) Back pain Benign prostatic hyperplasia BPH (benign prostatic hyperplasia) Cancer Cardiology follow-up encounter Chronic anemia Chronic heart failure with preserved ejection fraction (HFpEF) Chronic kidney disease Chronic pain Chronic renal insufficiency Colitis COPD (chronic obstructive pulmonary disease) CPAP (continuous positive airway pressure) dependence Debility Diarrhea Difficulty chewing Dysphagia Easy bruising Elevated LFTs Elevated liver enzymes Essential (primary) hypertension Excessive bleeding Gastric reflux GI bleed (2012) Hearing loss, left Hearing loss, right Hiatal hernia High cholesterol History of colon polyps History of diverticulitis History of echocardiogram History of edema History of heart attack History of hyperthyroidism History of leukemia History of pain when walking History of renal disease History of stress test HLD (hyperlipidemia) Hypertension Hypothyroidism Irregular heart beat Kidney disease Kidney stones Myocardial infarct Nausea and vomiting Non-rheumatic tricuspid valve insufficiency Non-smoker Nonrheumatic mitral (valve) insufficiency 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 Osteoarthritis Paroxysmal atrial fibrillation Rheumatoid arthritis Secondary pulmonary arterial hypertension Sleep apnea Sleep apnea Stage 3b chronic kidney disease Thoracic aortic aneurysm (TAA) Thyroid disease Wears glasses Home Medications denosumab 60 mg/mL subcutaneous syringe (Prolia) 60 mg SQ .[id number] BONES 12/09/20 [History Last Taken 11/10/22] tamsulosin 0.4 mg capsule 0.4 mg PO QHS bladder 11/18/21 [History Last Taken 06/20/23] levothyroxine 25 mcg tablet 50 mcg PO DAILY thyroid 02/17/22 [History Last Taken 06/21/23] vitamin B complex 1 cap PO BID supplement 05/01/22 [History Last Taken 02/12/23] linaclotide 72 mcg capsule (Linzess) 72 mcg PO DAILY PRN Diarrhea 06/15/22 [History Last Taken Unknown] ascorbic acid (vitamin C) 500 mg tablet 500 mg PO DAILY supplement 07/20/22 [History Last Taken 06/21/23] finasteride 5 mg tablet 5 mg PO DAILY prostate 08/05/22 [History Last Taken 06/21/23] cholecalciferol (vitamin D3) 25 mcg (1,000 unit) capsule (Vitamin D3) 1,000 unit PO DAILY supplement 02/19/23 [History Last Taken Unknown] polyethylene glycol 3350 17 gram oral powder packet 17 g PO DAILY constipation 02/19/23 [History Last Taken Unknown] amiodarone 100 mg tablet 100 mg PO BID heart 02/21/23 [History Last Taken 06/21/23] sucralfate 1 gram tablet 1 g PO TID@0700,1100,1600 stomach 30 days #90 tabs 03/21/23 [Rx Last Taken 06/21/23] famotidine 40 mg tablet 40 mg PO DAILY stomach #30 tabs 04/11/23 [Rx Last Taken Unknown] lactulose 10 gram/15 mL oral solution 10 g (15 mL) PO DAILY constipation 30 days #450 mL 05/18/23 [Rx Last Taken Unknown] loratadine 10 mg tablet (Claritin) 10 mg PO DAILY allergies 06/16/23 [History Last Taken Unknown] warfarin 3 mg tablet (Jantoven) 3 mg PO SuTuThSa@1700 blood thinner #0 tabs 06/21/23 [Rx Last Taken 06/19/23] warfarin 4 mg tablet See Rx Instructions .Route .COMPLEX blood thinner #60 tabs 06/21/23 [Rx Last Taken 06/20/23] furosemide 40 mg tablet 40 mg PO DAILY 30 days #30 tabs 07/06/23 [Rx Last Taken Unknown] metoprolol tartrate 25 mg tablet 25 mg PO BID #0 tabs 07/06/23 [Rx Last Taken Unknown] acetaminophen 500 mg tablet 1,000 mg PO Q8 PRN pain 07/19/23 [History Last Taken Unknown] Allergy/AdvReac Type Severity Reaction Status Date / Time diclofenac Allergy rash Verified 07/15/23 14:49 prednisone Allergy Rash Verified 07/15/23 14:49 Family History Father Cancer Prostate cancer Mother Hypertension Sister Hypertension Surgical History History of back surgery History of back surgery History of cardiac catheterization History of cardioversion (06/18/19) History of coronary artery stent placement (08/04/00) History of electrophysiologic study (08/08/00) History of esophagogastroduodenoscopy (EGD) History of hemorrhoidectomy History of hernia repair History of left heart catheterization (07/17/12) History of Zenaida fundoplication History of radiofrequency ablation procedure for cardiac arrhythmia (11/11/11) Social History household members: none Smoking Status: Never smoker alcohol intake: never substance use type: does not use caffeine: No ROS ROS Narrative See HPI Physical Exam Const alert, oriented x3, no apparent distress and average body habitus Constitutional Narrative: No conversational dyspnea noted General Appearance: cooperative, well kempt and well developed HEENT normocephalic, head/scalp atraumatic and moist oral mucous membranes Eyes PERRL, EOMs intact bilaterally and conjunctivae normal Neck supple, no JVD, thyroid normal and no carotid bruits General: trachea midline Chest inspection of chest normal Resp normal respiratory effort, no retractions and no use of accessory muscles Auscultation: rales bilateral base; Negative for rhonchi or wheezes Percussion: dullness Lower: right Cardio S1 normal heart sound, S2 normal heart sound, no murmurs, no rub and no gallops Rate: tachycardic Rhythm: abnormal rhythm irregularly irregular Heart Sounds: murmur systolic II/ crescendo-decrescendo mid GI normal to inspection, nondistended, normoactive bowel sounds, soft to palpation, non-tender and non-distended Extremity General Extremity: edema; Negative for clubbing Skin no rashes or lesions noted General Skin Exam: no breakdown Neuro oriented x3, CN's II-XII intact bilaterally, moves all extremities, no focal motor deficits and no sensory deficits noted Speech: speech normal Psych affect normal Medical Records Data Attestation: I reviewed the patient's medical records Medical records narrative: Patient did have pulmonary function test completed in 2021 that were within normal limits. Patient is also had an echocardiogram showing an EF of 35%. Review of patient's weight shows patient there is up between 15 and 30 pounds from original presentation. Patient also had a CT of the chest completed on 07/05/2023 showing no PE but a dilated ascending aorta with patchy groundglass opacities bilaterally Lab / Micro Data Attestation: I reviewed the patient's lab results. Lab results narrative: Repeat blood cultures on admission have no growth to date 07/20/23 03:32 07/20/23 03:32 Labs: Laboratory Results - last 24 hr 07/20/23 03:32: WBC 15.3 H, RBC 2.53 L, Hgb 8.3 L, Hct 27.2 L, MCV 107.5 H, MCH 32.8 H, MCHC 30.5 L, RDW Std Deviation 82.3 H, RDW Coeff of Pablo 20.9 H, Plt Count 370, MPV 9.7, Immature Gran % (Auto) 0.900, Neut % (Auto) 84.5 H, Lymph % (Auto) 4.4 L, Mercer % (Auto) 9.1, Eos % (Auto) 0.6, Baso % (Auto) 0.5, Absolute Neuts (auto) 12.9 H, Absolute Lymphs (auto) 0.68 L, Nucleated RBC % 0.4, Differential Comment SCANNED, Hypochromasia 1+, Anisocytosis 2+, Macrocytosis 2+, Sodium 144, Potassium 4.0, Chloride 106, Carbon Dioxide 29.0, Anion Gap 9, BUN 47 H, Creatinine 2.55 H, Estim Creat Clear Calc 21.01, Est GFR (MDRD) Af Amer 31 L, Est GFR (MDRD) Non-Af 26 L, BUN/Creatinine Ratio 18.4, Glucose 116 H, Calcium 8.2 L, Total Bilirubin 1.60 H, AST 36, ALT 44, Alkaline Phosphatase 63, Total Protein 6.4, Albumin 2.8 L, Globulin 3.6, Albumin/Globulin Ratio 0.8 L 07/20/23 08:19: PT 24.8 H, INR 2.2 Rhythm Strip Rhythm Strip: A-fib Rate: 108 Imagaing Radiology Impression Echocardiogram 07/18/23 22:31 Interpretation Summary Moderate concentric left ventricular hypertrophy. Moderately severe global left ventricular systolic dysfunction. Unable to assess diastolic dysfunction due to arrhythmia. The left ventricular ejection fraction is 35 %. Mild global right ventricular systolic dysfunction. The left atrium is severely enlarged. The right atrium is moderately enlarged. Severe (4+) posteriorly directed mitral valve insufficiency. Moderate (2+) tricuspid valve insufficiency. Right ventricular systolic pressure estimated to be 77 mmHg. Mild (1+) aortic valve insufficiency. Mildly dilated aortic root. Ordering Physician: Melvin Pollard Referring Physician: César Chinchilla Performed By: Williams Chavez RCS Charges/Coding Visit Charges Inpatient E&M: 25896 Init Hosp L3
[2023-07-20] MEDS: hydrALAZINE 25 MG Tablet PO ×3 (11:26→21:34)
[2023-07-20] MEDS: Furosemide 40 MG/4 ML Vial IV (11:26)
[2023-07-20] MEDS: Amiodarone 200 MG Tablet PO ×2 (11:26→21:35)
[2023-07-20] MEDS: Isosorbide DN 10 MG Tablet 5 MG PO ×2 (11:27→21:35)
[2023-07-20] MEDS: 0.9% Saline Lock 10 ML Syringe IV ×2 (11:28→13:19)
--- NOTE | 2023-07-20 14:28 | CASEMGMT ---
SW attempted to talk with patient again, however he was sleeping and did not wake up for SW. Plan: d/c back to [facility]
--- NOTE | 2023-07-20 20:04 | PN.HOSP_ITS ---
Reason for Visit Reason for Visit: Diagnoses Atherosclerotic heart disease of [place] coronary artery without angina pectoris (07/18/23) Pulmonary hypertension, unspecified (07/18/23) Secondary pulmonary arterial hypertension (07/18/23) Nonrheumatic mitral (valve) insufficiency (07/18/23) Typical atrial flutter (07/18/23) Unspecified atrial fibrillation (07/18/23) Unspecified atrial flutter (07/18/23) Acute on chronic diastolic (congestive) heart failure (07/18/23) Unspecified combined systolic (congestive) and diastolic (congestive) heart failure (07/18/23) Acute on chronic combined systolic (congestive) and diastolic (congestive) heart failure (07/18/23) Heart failure, unspecified (07/18/23) Pneumonia, unspecified organism (07/18/23) Chronic kidney disease, stage 3b (07/18/23) Hypoxemia (07/18/23) Nosocomial condition (07/18/23) Subjective Subjective Patient was seen and examined today, I had pulmonary medicine see the patient for an opinion on whether he could have pneumonia, pulmonary medicine felt that he most likely had congestive heart failure and advised stopping his antibiotic coverage after his cultures were negative. They also recommended that the patient's rate control be maximized, I have decided at this time to increase the patient's metoprolol to 100 mg twice daily. Cardiology yesterday increase the patient's Lasix to 80 mg IV twice daily. Patient is now on 3 L of oxygen. Objective Data Objective Data Vital Signs: Vital Signs Temp Pulse Resp BP Pulse Ox O2 Del Method O2 Flow Rate 98.6 F 100 16 128/91 H 91 Nasal Cannula 3 07/20/23 17:18 07/20/23 17:20 07/20/23 17:18 07/20/23 17:20 07/20/23 17:18 07/20/23 17:18 07/20/23 17:18 Oxygen Flow Rate (L/min) 3 Oxygen Delivery Method Nasal Cannula Weight: 66.5 kg Body Mass Index (BMI) 22.3 Intake & Output: Intake and Output for Last 24 Hours 07/18/23 07/19/23 07/20/23 23:59 23:59 23:59 Intake Total 50 / 50 1385 / 1385 1150 / 1150 Output Total 225 / 225 600 / 600 150 / 150 Balance -175 / -175 785 / 785 1000 / 1000 Lab / Micro Data 07/20/23 03:32 07/20/23 03:32 Labs: Laboratory Results - last 24 hr 07/20/23 03:32: WBC 15.3 H, RBC 2.53 L, Hgb 8.3 L, Hct 27.2 L, MCV 107.5 H, MCH 32.8 H, MCHC 30.5 L, RDW Std Deviation 82.3 H, RDW Coeff of Pablo 20.9 H, Plt Count 370, MPV 9.7, Immature Gran % (Auto) 0.900, Neut % (Auto) 84.5 H, Lymph % (Auto) 4.4 L, [place] % (Auto) 9.1, Eos % (Auto) 0.6, Baso % (Auto) 0.5, Absolute Neuts (auto) 12.9 H, Absolute Lymphs (auto) 0.68 L, Nucleated RBC % 0.4, Differential Comment SCANNED, Hypochromasia 1+, Anisocytosis 2+, Macrocytosis 2+, Sodium 144, Potassium 4.0, Chloride 106, Carbon Dioxide 29.0, Anion Gap 9, BUN 47 H, Creatinine 2.55 H, Estim Creat Clear Calc 21.01, Est GFR (MDRD) Af Amer 31 L, Est GFR (MDRD) Non-Af 26 L, BUN/Creatinine Ratio 18.4, Glucose 116 H, Calcium 8.2 L, Total Bilirubin 1.60 H, AST 36, ALT 44, Alkaline Phosphatase 63, Total Protein 6.4, Albumin 2.8 L, Globulin 3.6, Albumin/Globulin Ratio 0.8 L 07/20/23 08:19: PT 24.8 H, INR 2.2 Micro: Microbiology 07/18/23 23:59 Mucosa - Nasopharyngeal Coronavirus COVID-19 PCR - Final 07/18/23 20:02 Nasal Secretion SARS-CoV-2 & FLU Antigen (Rapid) - Final Rhythm Strip Rhythm Strip: A-fib Rate: 108 Physical Exam Narrative alert, no apparent distress and average body habitus General Appearance: cooperative, well kempt and well developed Orientation / Consciousness: awake, oriented to person and oriented to place HEENT normocephalic, head/scalp atraumatic and moist oral mucous membranes Eyes PERRL, EOMs intact bilaterally and conjunctivae normal Neck supple, no JVD, thyroid normal and no carotid bruits General: trachea midline Resp normal respiratory effort, no retractions and no use of accessory muscles Resp Narrative: Breath sounds are diminished particularly at the right lung base, there are fine rales noted over the lower lung [place] Auscultation: Negative for rales, rhonchi or wheezes Cardio S1 normal heart sound, S2 normal heart sound, no murmurs, no rub and no gallops Cardio Narrative: Heart rate and rhythm is irregular GI normal to inspection, nondistended, normoactive bowel sounds, soft to palpation, non-tender and non-distended Skin no rashes or lesions noted General Skin Exam: no breakdown Neuro CN's II-XII intact bilaterally, moves all extremities, no focal motor deficits and no sensory deficits noted Sensorium / Orientation: awake, alert, oriented to person and oriented to place Speech: speech normal Psych affect normal Assessment & Plan Assessment/Plan (1) Combined systolic and diastolic congestive heart failure: QUALIFIERS: Heart failure chronicity: acute on chronic Qualified Code(s): I50.43 - Acute on chronic combined systolic (congestive) and diastolic (congestive) heart failure (2) Acute exacerbation of CHF (congestive heart failure): QUALIFIERS: Heart failure type: diastolic Qualified Code(s): I50.33 - Acute on chronic diastolic (congestive) heart failure PLAN: Plan 1. Acute on chronic congestive heart failure with reduced ejection fraction- patient will remain on IV Lasix, chest x-ray will be monitored as necessary #2 Possible Healthcare acquired pneumonia-patient remains on Zosyn at this time, CBC will be monitored, pulmonary medicine is advised stopping the patient's antibiotics if his cultures are negative #3 chronic atrial flutter/fibrillation-patient remains on rate limiting agents and Coumadin, INR will be monitored, I have decided to increase the patient's metoprolol at this time #4 chronic kidney disease stage IIIb-BMP will be monitored, complicates care, medical course, recovery, and prognosis, creatinine was elevated today at 2.55, patient's Lasix dosage may need to be readjusted tomorrow #5 coronary artery disease-stable at this time, patient was seen by cardiology today and they are participating in his care #6 severe pulmonary hypertension-continue IV diuresis, monitor creatinine, adjust Lasix dosage as needed #7 coagulopathy secondary to chronic atrial fibrillation-patient is currently on Coumadin, his INR today was 2.2. Total clinical time spent by myself addressing the patient's medical issues, reviewing all of his data, and collaborating with patient's care team: 35 minutes Charges/Coding Visit Charges Inpatient E&M: 03342 Subs Hosp L2
[2023-07-20] MEDS: Tamsulosin HCl 0.4 MG Capsule PO (21:34)
[2023-07-20] MEDS: Metoprolol Tartrate 100 MG Tablet PO (21:37)
[2023-07-21] VITALS (24 sets, daily range): BP systolic 109–136; BP diastolic 70–101; PULSE 74–111; RESP 12–24; TEMP 36.4–36.9; O2SAT 90–100; BMI 22.4
--- NOTE | 2023-07-21 03:54 | NURSING ---
During 0 rounds, patient stated to this nurse that he was having trouble breathing. Stated that his breathing has gotten worse since admission. Pulse ox spot check 91%, lungs continue to be clear and slightly diminished. No visible respiratory distress noted. Respiratory contacted for PRN albuterol treatment.
[2023-07-21] MEDS: Albuterol 2.5 MG/3 ML VIAL.NEB. INHALATION ×5 (04:02→20:07)
[2023-07-21] MEDS: Sucralfate 1 GM Tablet PO ×2 (06:09→17:02)
[2023-07-21] MEDS: Levothyroxine 50 MCG Tablet PO (06:09)
[2023-07-21] MEDS: Piperacil/Tazobactam 3.375 GM in 0.9% Normal Saline (50mL MB+) 50 ML IV ×3 (06:09→21:28)
[2023-07-21 06:48] LABS: Absolute Lymphocyte Count 0.75 X10^3/uL (0.83-4.51); Absolute Neutrophil Count 13.6 X10^3/uL (2.0-7.7); Basophil# 0.08 X10^3/uL; Basophil% 0.5 % (0-1); Eosinophil# 0.12 X10^3/uL; Eosinophils% 0.8 % (0-5); Hematocrit 26.7 % (40-54); Hemoglobin 8.2 g/dL (13.0-16.5); Lymphocyte # 0.75 X10^3/ul (0.83-4.51); Lymphocyte % 4.7 % (19-41); Mean Corp Hgb Conc 30.7 g/dL (32-36); Mean Corpuscular Hgb 32.8 pg (27.0-32.0); Mean Corpuscular Volume 106.8 fL (80-94); Monocyte# 1.19 X10^3/uL; Monocyte% 7.5 % (0-10); NRBC Flagged by Analyzer 0.3 % (0-5); Neutrophil # 13.55 X10^3/uL (2.7-7.7); Neutrophil % 85.6 % (47-70); POSITIVE MORPHOLOGY YES; Platelet Count 358 K/mm3 (150-450); RBC Distribution Width CV 20.9 % (11.6-14.6); RBC Distribution Width SD 82.7 fl (35.1-43.9); White Blood Count 15.8 K/mm3 (4.4-11.0)
[2023-07-21 06:52] LABS: Differential Indicated SCAN CRITERIA MET
[2023-07-21 07:10] LABS: Anisocytosis 2+; Differential Comment SCANNED; Hypochromasia 1+; Macrocytosis 2+
[2023-07-21 07:23] LABS: International Normalized Ratio 2.8; Prothrombin Time (Protime)PT. 29.6 SECONDS (11.7-14.9)
[2023-07-21 07:49] LABS: Anion Gap 6 (5-15); BUN 51 mg/dL (7-18); BUN/Creat Ratio 17.5 RATIO (10-20); Calcium,Total 8.2 mg/dL (8.5-10.1); Chloride 109 mmol/L (98-107); Creatinine, Serum 2.92 mg/dL (0.70-1.30); EST Glomerular Filtration Rate 22 mL/min (>60); Est Glom Filt Rate - Afr Amer 27 mL/min (>60); Estimated Creatinine Clearance 18.43 ml/min; Glucose 118 mg/dL (74-106); Potassium 3.9 mmol/L (3.5-5.1); Sodium Level 143 mmol/L (136-145)
--- NOTE | 2023-07-21 08:21 | PN.CC_ITS ---
Assessment & Plan Assessment/Plan (1) Combined systolic and diastolic congestive heart failure: QUALIFIERS: Heart failure chronicity: acute on chronic Qualified Code(s): I50.43 - Acute on chronic combined systolic (congestive) and diastolic (congestive) heart failure (2) Pulmonary hypertension: (3) Atrial flutter: QUALIFIERS: Atrial flutter type: typical Qualified Code(s): I48.3 - Typical atrial flutter (4) Hypoxia: (5) Secondary pulmonary arterial hypertension: PLAN: Plan RECOMMENDATIONS: 1. Continue cardiac optimization per cardiology 2. Wean oxygen as tolerated 3. Discontinue antibiotics once blood culture negative 4. Consider right heart cath as an outpatient 5. Walking oximetry prior to discharge 6. Add empiric BiPAP with sleep and rescue IMPRESSIONS: 1. Acute hypoxic respiratory insufficiency secondary to acute on chronic combined CHF/A-fib with RVR Cardiology working on optimizing. Patient would likely benefit from improved rate control. Patient does have elevated pulmonary artery pressures, but this is difficult to interpret in the setting of volume overload. Patient is on diuretics at this time. Low clinical suspicion for pneumonia despite elevated white blood cell count. Patient is not having clinical symptoms such as purulent sputum or fevers. Cannot rule out an indolent infection, but patient's weight is up 15 to 30 pounds from his baseline. Patient did have a normal pulmonary function test just a year ago secondary to amiodarone. Given inability to diurese secondary to renal function, will add empiric BiPAP to help with sleep and rescue during the day. 2. Pulmonary hypertension Clinical suspicion for type II pulmonary hypertension. Elevated pulmonary pressures in the setting of volume overload are very difficult to interpret. Patient would benefit from volume optimization and a right heart catheterization to evaluate pulmonary pressures prior to initiation of any vasoactive medications. Empiric BiPAP may help with overnight oxygen issues. 3. Chronic kidney disease stage IIIb Patient does have an elevated creatinine at this time. Patient has been receiving diuretics. Diuretics were decreased yesterday. Patient likely requires a holiday today from diuretics, but defer to cardiology. No indication for renal replacement therapy at this time, but this does complicate diuretic approach. I's and O's have been an accurate, so the use of daily weights will be necessary. 4. Advanced age/CAD/protracted hospitalization/hyperlipidemia/history of GI bleed/osteoporosis/debility Complicates care, management, recovery and prognosis. Okay to continue with current medications. INR is therapeutic, but patient is not showing any signs or symptoms of GI bleed at this time. Subjective Subjective Patient reported a rough night. Patient states he has had no change in cough, but did have significant shortness of breath and woke up gasping a couple times. Patient states his incentive spirometer volumes have gone from approximately 1700-->700 this morning. Patient is not reporting any chest pain or abdominal pain. Patient does feel more comfortable sitting in the chair and lying in the bed. Objective Data Objective Data Vital Signs: Vital Signs Temp Pulse Resp BP Pulse Ox O2 Del Method O2 Flow Rate 36.4 C L 80 16 123/74 H 90 Nasal Cannula 4 07/21/23 06:40 07/21/23 06:40 07/21/23 06:40 07/21/23 06:40 07/21/23 06:40 07/21/23 06:40 07/21/23 06:40 Oxygen Flow Rate (L/min) 4 Oxygen Delivery Method Nasal Cannula Weight: 66.8 kg Body Mass Index (BMI) 22.4 Intake & Output: Intake and Output for Last 24 Hours 07/19/23 07/20/23 07/21/23 23:59 23:59 23:59 Intake Total 1385 / 1385 1750 / 1750 50 / 50 Output Total 600 / 600 150 / 150 300 / 300 Balance 785 / 785 1600 / 1600 -250 / -250 Lab / Micro Data Attestation: I reviewed the patient's lab results. 07/21/23 05:46 07/21/23 05:46 Labs: Laboratory Results - last 24 hr 07/20/23 08:19: PT 24.8 H, INR 2.2 07/21/23 05:46: WBC 15.8 H, RBC 2.50 L, Hgb 8.2 L, Hct 26.7 L, MCV 106.8 H, MCH 32.8 H, MCHC 30.7 L, RDW Std Deviation 82.7 H, RDW Coeff of Pablo 20.9 H, Plt C ount 358, MPV 10.0, Immature Gran % (Auto) 0.900, Neut % (Auto) 85.6 H, Lymph % (Auto) 4.7 L, [place] % (Auto) 7.5, Eos % (Auto) 0.8, Baso % (Auto) 0.5, Absolute Neuts (auto) 13.6 H, Absolute Lymphs (auto) 0.75 L, Nucleated RBC % 0.3, Differential Comment SCANNED, Hypochromasia 1+, Anisocytosis 2+, Macrocytosis 2+, PT 29.6 H, INR 2.8, Sodium 143, Potassium 3.9, Chloride 109 H, Carbon Dioxide 28.0, Anion Gap 6, BUN 51 H, Creatinine 2.92 H, Estim Creat Clear Calc 18.43, Est GFR (MDRD) Af Amer 27 L, Est GFR (MDRD) Non-Af 22 L, BUN/Creatinine Ratio 17.5, Glucose 118 H, Calcium 8.2 L Micro: Microbiology 07/18/23 23:59 Mucosa - Nasopharyngeal Coronavirus COVID-19 PCR - Final 07/18/23 20:02 Nasal Secretion SARS-CoV-2 & FLU Antigen (Rapid) - Final Rhythm Strip Rhythm Strip: A-fib Rate: 80 Physical Exam Const alert, oriented x3, no apparent distress and average body habitus Constitutional Narrative: No conversational dyspnea noted General Appearance: cooperative, well kempt and well developed HEENT normocephalic, head/scalp atraumatic and moist oral mucous membranes Eyes PERRL, EOMs intact bilaterally and conjunctivae normal Neck supple, no JVD, thyroid normal and no carotid bruits General: trachea midline Chest inspection of chest normal Resp normal respiratory effort, no retractions and no use of accessory muscles Auscultation: rales bilateral base; Negative for rhonchi or wheezes Percussion: dullness Lower: right Cardio regular rate, S1 normal heart sound, S2 normal heart sound, no murmurs, no rub and no gallops Rhythm: abnormal rhythm irregularly irregular Heart Sounds: murmur systolic II/ crescendo-decrescendo mid GI normal to inspection, nondistended, normoactive bowel sounds, soft to palpation, non-tender and non-distended Extremity General Extremity: Negative for clubbing or edema Skin no rashes or lesions noted General Skin Exam: no breakdown Neuro oriented x3, CN's II-XII intact bilaterally, moves all extremities, no focal motor deficits and no sensory deficits noted Speech: speech normal Psych affect normal Charges/Coding Visit Charges Inpatient E&M: 76764 Subs Hosp L3
[2023-07-21] MEDS: Metoprolol Tartrate 100 MG Tablet PO ×2 (09:10→21:16)
[2023-07-21] MEDS: Lactulose 20 GM/30 ML UDC 10 GM PO (09:10)
[2023-07-21] MEDS: Finasteride 5 MG Tablet PO (09:10)
[2023-07-21] MEDS: Amiodarone 200 MG Tablet PO ×2 (09:11→21:18)
[2023-07-21] MEDS: Isosorbide DN 10 MG Tablet 5 MG PO ×2 (09:11→21:20)
[2023-07-21] MEDS: Famotidine 20 MG Tablet 40 MG PO (09:11)
[2023-07-21] MEDS: Cholecalciferol (VIT D3) 25 MCG TABLET (1,000 UNITS) PO (09:11)
[2023-07-21] MEDS: hydrALAZINE 25 MG Tablet PO (09:12)
[2023-07-21] MEDS: Magnesium Chloride 64 MG Delay Rel.Tablet 128 MG PO ×2 (09:12→21:19)
[2023-07-21] MEDS: Vitamin B Comp W-C Capsule 1 CAP PO ×2 (09:12→21:17)
[2023-07-21] MEDS: Potassium Chloride Oral Tablet 20 MEQ PO ×2 (09:12→21:19)
[2023-07-21] MEDS: Empagliflozin 10 MG Tablet PO (09:13)
[2023-07-21] MEDS: Ascorbic Acid 500 MG Tablet PO (09:13)
--- NOTE | 2023-07-21 11:27 | PCM.PN.HOSP ---
Reason for Visit Reason for Visit: Diagnoses Atherosclerotic heart disease of [place] coronary artery without angina pectoris (07/18/23) Pulmonary hypertension, unspecified (07/18/23) Secondary pulmonary arterial hypertension (07/18/23) Nonrheumatic mitral (valve) insufficiency (07/18/23) Typical atrial flutter (07/18/23) Unspecified atrial fibrillation (07/18/23) Unspecified atrial flutter (07/18/23) Acute on chronic diastolic (congestive) heart failure (07/18/23) Unspecified combined systolic (congestive) and diastolic (congestive) heart failure (07/18/23) Acute on chronic combined systolic (congestive) and diastolic (congestive) heart failure (07/18/23) Heart failure, unspecified (07/18/23) Pneumonia, unspecified organism (07/18/23) Chronic kidney disease, stage 3b (07/18/23) Hypoxemia (07/18/23) Nosocomial condition (07/18/23) Subjective Subjective Patient is an 83-year-old gentleman admitted with progressive shortness of breath diagnosed with acute congestive heart failure admitted to monitored bed for further management. There was an initial suspicion of pneumonia however this has been ruled out Objective Data Objective Data Vital Signs: Vital Signs Temp Pulse Resp BP Pulse Ox O2 Del Method O2 Flow Rate 98 F 96 18 129/73 H 93 Nasal Cannula 4 07/21/23 09:30 07/21/23 09:30 07/21/23 09:30 07/21/23 09:30 07/21/23 09:30 07/21/23 09:30 07/21/23 09:30 Oxygen Flow Rate (L/min) 4 Oxygen Delivery Method Nasal Cannula Weight: 66.8 kg Body Mass Index (BMI) 22.4 Intake & Output: Intake and Output for Last 24 Hours 07/19/23 07/20/23 07/21/23 23:59 23:59 23:59 Intake Total 1385 / 1385 1750 / 1750 100 / 100 Output Total 600 / 600 150 / 150 300 / 300 Balance 785 / 785 1600 / 1600 -200 / -200 Lab / Micro Data 07/21/23 05:46 07/21/23 05:46 Labs: Laboratory Results - last 24 hr 07/21/23 05:46: WBC 15.8 H, RBC 2.50 L, Hgb 8.2 L, Hct 26.7 L, MCV 106.8 H, MCH 32.8 H, MCHC 30.7 L, RDW Std Deviation 82.7 H, RDW Coeff of Pablo 20.9 H, Plt Count 358, MPV 10.0, Immature Gran % (Auto) 0.900, Neut % (Auto) 85.6 H, Lymph % (Auto) 4.7 L, [place] % (Auto) 7.5, Eos % (Auto) 0.8, Baso % (Auto) 0.5, Absolute Neuts (auto) 13.6 H, Absolute Lymphs (auto) 0.75 L, Nucleated RBC % 0.3, Differential Comment SCANNED, Hypochromasia 1+, Anisocytosis 2+, Macrocytosis 2+, PT 29.6 H, INR 2.8, Sodium 143, Potassium 3.9, Chloride 109 H, Carbon Dioxide 28.0, Anion Gap 6, BUN 51 H, Creatinine 2.92 H, Estim Creat Clear Calc 18.43, Est GFR (MDRD) Af Amer 27 L, Est GFR (MDRD) Non-Af 22 L, BUN/Creatinine Ratio 17.5, Glucose 118 H, Calcium 8.2 L Micro: Microbiology 07/18/23 23:59 Mucosa - Nasopharyngeal Coronavirus COVID-19 PCR - Final 07/18/23 20:02 Nasal Secretion SARS-CoV-2 & FLU Antigen (Rapid) - Final Rhythm Strip Rhythm Strip: A-fib Rate: 80 Physical Exam Narrative GENERAL: cooperative HEENT: Atraumatic; normocephalic EYES; Anicteric, Normal Conjunctiva NECK; supple, normal thyroid, RESPIRATORY: Diminished to auscultation CARDIOVASCULAR: Regular S1 S2, GI: soft, normoactive bowel sounds, : No Renal angle tenderness; EXTREMITIES: edema, no clubbing, MUSCULOSKELETAL: no muscle wasting NEURO: Awake; no lateralizing signs. SKIN: No Rash PSYCH; Flat affect Assessment & Plan Assessment/Plan (1) Combined systolic and diastolic congestive heart failure: QUALIFIERS: Heart failure chronicity: acute on chronic Qualified Code(s): I50.43 - Acute on chronic combined systolic (congestive) and diastolic (congestive) heart failure (2) Acute exacerbation of CHF (congestive heart failure): QUALIFIERS: Heart failure type: diastolic Qualified Code(s): I50.33 - Acute on chronic diastolic (congestive) heart failure PLAN: Plan Patient is an 83-year-old gentleman admitted with progressive shortness of breath diagnosed with acute congestive heart failure admitted to monitored bed for further management. There was an initial suspicion of pneumonia however this has been ruled out 1. Acute on chronic congestive heart failure with reduced ejection fraction Echo from 07/18/2023 demonstrated EF of 35% with moderately severe global left ventricular systolic dysfunction and severe posterior directed mitral valve insufficiency. Admitted to monitored bed managed with strict input and output, daily weight, low-sodium diet as well as diuretics 2. Valvular heart disease ? Patient echo from 07/18/2023 demonstrated severe posterior displaced mitral valve insufficiency and moderate tricuspid valve insufficiency. Plans for patient to follow-up with cardiology following his discharge 3. Severe pulmonary hypertension ? Complicating care patient RVSP on his echo was 77 mmHg. Patient has been seen in consultation by pulmonary medicine 4. Chronic A-fib/flutter ? Rate controlled on systemic anticoagulation with Coumadin with daily monitoring of INR ordered 5. Chronic kidney disease stage III ? Monitoring kidney function which appears to be worsening in view of his diuresis his furosemide dose subsequently adjusted 6. Healthcare associated pneumonia ? Rule out 7. Coronary artery disease ? With previous PCI. Currently stable without any evidence of ischemia 8. Hypothyroidism - Patient is on levothyroxine home dose continued 9. GERD ? On PPI 10. BPH ? Patient is on finasteride as well as tamsulosin continued 11. Physical deconditioning - Requested for PT OT eval and high school social studies teacher to assist with discharge planning 12. DVT prophylaxis ? Patient is on Coumadin Time spent in the patient's overall evaluation,decision-making process, review of diagnostic data, adjustment of management, discussion with other providers, nursing nursing and ancillary staff involved in patient's care documentation, 40 Minutes Charges/Coding Visit Charges Inpatient E&M: 31118 Subs Hosp L2
[2023-07-21] MEDS: Ondansetron 4 MG/2 ML Vial IV (12:12)
[2023-07-21] MEDS: hydrALAZINE 50 MG Tablet PO ×3 (14:58→21:18)
[2023-07-21] MEDS: Tamsulosin HCl 0.4 MG Capsule PO (21:20)
[2023-07-22] VITALS (23 sets, daily range): BP systolic 94–134; BP diastolic 65–94; PULSE 71–92; RESP 12–26; TEMP 36.3–36.8; O2SAT 93–97; BMI 22.4
[2023-07-22 05:50] LABS: Absolute Lymphocyte Count 0.55 X10^3/uL (0.83-4.51); Absolute Neutrophil Count 9.6 X10^3/uL (2.0-7.7); Basophil# 0.04 X10^3/uL; Basophil% 0.4 % (0-1); Eosinophil# 0.14 X10^3/uL; Eosinophils% 1.2 % (0-5); Hematocrit 24.8 % (40-54); Hemoglobin 7.7 g/dL (13.0-16.5); Lymphocyte # 0.55 X10^3/ul (0.83-4.51); Lymphocyte % 4.9 % (19-41); Mean Corpuscular Volume 106.4 fL (80-94); Mean Platelet Vol. 9.6 fl (6.2-12.0); NRBC Flagged by Analyzer 0.3 % (0-5); Neutrophil # 9.57 X10^3/uL (2.7-7.7); Neutrophil % 84.7 % (47-70); POSITIVE DIFFERENTIAL YES; POSITIVE MORPHOLOGY YES; Platelet Count 289 K/mm3 (150-450); RBC Distribution Width CV 20.8 % (11.6-14.6); RBC Distribution Width SD 81.5 fl (35.1-43.9); Red Blood Count 2.33 M/mm3 (4.6-6.2); White Blood Count 11.3 K/mm3 (4.4-11.0)
[2023-07-22 05:58] LABS: Differential Indicated SCAN CRITERIA MET
[2023-07-22 06:02] LABS: International Normalized Ratio 3.6; Prothrombin Time (Protime)PT. 36.4 SECONDS (11.7-14.9)
[2023-07-22] MEDS: Piperacil/Tazobactam 3.375 GM in 0.9% Normal Saline (50mL MB+) 50 ML IV (06:24)
[2023-07-22] MEDS: Levothyroxine 50 MCG Tablet PO (06:24)
[2023-07-22] MEDS: Sucralfate 1 GM Tablet PO ×3 (06:24→16:53)
[2023-07-22 06:34] LABS: Anion Gap 6 (5-15); BUN 49 mg/dL (7-18); BUN/Creat Ratio 18.5 RATIO (10-20); Chloride 112 mmol/L (98-107); Creatinine, Serum 2.65 mg/dL (0.70-1.30); EST Glomerular Filtration Rate 25 mL/min (>60); Est Glom Filt Rate - Afr Amer 30 mL/min (>60); Estimated Creatinine Clearance 20.31 ml/min; Glucose 93 mg/dL (74-106); Magnesium 2.8 mg/dL (1.6-2.6); Phosphorus 3.5 mg/dL (2.5-4.9); Sodium Level 145 mmol/L (136-145)
[2023-07-22 07:18] LABS: Anisocytosis 3+; Hypochromasia 1+
[2023-07-22] MEDS: Albuterol 2.5 MG/3 ML VIAL.NEB. INHALATION ×3 (07:27→19:10)
--- NOTE | 2023-07-22 07:32 | PN.HOSP_ITS ---
Reason for Visit Reason for Visit: Diagnoses Atherosclerotic heart disease of [place] coronary artery without angina pectoris (07/18/23) Pulmonary hypertension, unspecified (07/18/23) Secondary pulmonary arterial hypertension (07/18/23) Nonrheumatic mitral (valve) insufficiency (07/18/23) Typical atrial flutter (07/18/23) Unspecified atrial fibrillation (07/18/23) Unspecified atrial flutter (07/18/23) Acute on chronic diastolic (congestive) heart failure (07/18/23) Unspecified combined systolic (congestive) and diastolic (congestive) heart failure (07/18/23) Acute on chronic combined systolic (congestive) and diastolic (congestive) heart failure (07/18/23) Heart failure, unspecified (07/18/23) Pneumonia, unspecified organism (07/18/23) Chronic kidney disease, stage 3b (07/18/23) Hypoxemia (07/18/23) Nosocomial condition (07/18/23) Subjective Subjective Patient's hemoglobin continues to drop down to 7.7. May be contributing to patient's significant anemia with patient deemed to be symptomatic an order was given for patient to be transfused with 1 unit PRBC. Prior to patient being transfused did undertake iron studies as well as stool guaiac which is likely to be positive in view of patient being on Coumadin Objective Data Objective Data Vital Signs: Vital Signs Temp Pulse Resp BP Pulse Ox O2 Del Method O2 Flow Rate 97.4 F L 86 20 H 102/80 96 Nasal Cannula 4 07/22/23 03:51 07/22/23 07:28 07/22/23 07:28 07/22/23 03:51 07/22/23 07:28 07/22/23 07:28 07/22/23 07:28 FiO2 35 07/22/23 03:56 Oxygen Flow Rate (L/min) 4 Oxygen Delivery Method Nasal Cannula Weight: 67.1 kg Body Mass Index (BMI) 22.4 Intake & Output: Intake and Output for Last 24 Hours 07/20/23 07/21/23 07/22/23 23:59 23:59 23:59 Intake Total 1750 / 1750 1020 / 1020 50 / 50 Output Total 150 / 150 1500 / 1500 Balance 1600 / 1600 -480 / -480 50 / 50 Lab / Micro Data 07/22/23 05:20 07/22/23 05:20 Labs: Laboratory Results - last 24 hr 07/21/23 05:46: Sodium 143, Potassium 3.9, Chloride 109 H, Carbon Dioxide 28.0, Anion Gap 6, BUN 51 H, Creatinine 2.92 H, Estim Creat Clear Calc 18.43, Est GFR (MDRD) Af Amer 27 L, Est GFR (MDRD) Non-Af 22 L, BUN/Creatinine Ratio 17.5, Glucose 118 H, Calcium 8.2 L 07/22/23 05:20: WBC 11.3 H, RBC 2.33 L, Hgb 7.7 L, Hct 24.8 L, MCV 106.4 H, MCH 33.0 H, MCHC 31.0 L, RDW Std Deviation 81.5 H, RDW Coeff of Pablo 20.8 H, Plt Count 289, MPV 9.6, Immature Gran % (Auto) 0.800, Neut % (Auto) 84.7 H, Lymph % (Auto) 4.9 L, [place] % (Auto) 8.0, Eos % (Auto) 1.2, Baso % (Auto) 0.4, Absolute Neuts (auto) 9.6 H, Absolute Lymphs (auto) 0.55 L, Nucleated RBC % 0.3, Hypochromasia 1+, Anisocytosis 3+, PT 36.4 H, INR 3.6, Sodium 145, Potassium 4.0, Chloride 112 H, Carbon Dioxide 27.0, Anion Gap 6, BUN 49 H, Creatinine 2.65 H, Estim Creat Clear Calc 20.31, Est GFR (MDRD) Af Amer 30 L, Est GFR (MDRD) N on-Af 25 L, BUN/Creatinine Ratio 18.5, Glucose 93, Calcium 8.0 L, Phosphorus 3.5, Magnesium 2.8 H Micro: Microbiology 07/18/23 21:45 Blood Culture (Wb) - Arm Right Blood Culture - Preliminary No growth in 48 hours. 07/18/23 21:36 Blood Culture (Wb) - Anticubital Left Blood Culture - Preliminary No growth in 48 hours. 07/18/23 23:59 Mucosa - Nasopharyngeal Coronavirus COVID-19 PCR - Final 07/18/23 20:02 Nasal Secretion SARS-CoV-2 & FLU Antigen (Rapid) - Final Rhythm Strip Rhythm Strip: A-fib Rate: 80 Physical Exam Narrative GENERAL: cooperative HEENT: Atraumatic; normocephalic EYES; Anicteric, Normal Conjunctiva NECK; supple, normal thyroid, RESPIRATORY: Diminished to auscultation CARDIOVASCULAR: Regular S1 S2, GI: soft, normoactive bowel sounds, : No Renal angle tenderness; EXTREMITIES: Dry gangrene involving the left middle to MUSCULOSKELETAL: no muscle wasting NEURO: Awake; no lateralizing signs. SKIN: No Rash PSYCH; Flat affect Assessment & Plan Assessment/Plan (1) Combined systolic and diastolic congestive heart failure: QUALIFIERS: Heart failure chronicity: acute on chronic Qualified Code(s): I50.43 - Acute on chronic combined systolic (congestive) and diastolic (congestive) heart failure (2) Acute exacerbation of CHF (congestive heart failure): QUALIFIERS: Heart failure type: diastolic Qualified Code(s): I50.33 - Acute on chronic diastolic (congestive) heart failure PLAN: Plan Patient is an 83-year-old gentleman admitted with progressive shortness of breath diagnosed with acute congestive heart failure admitted to monitored bed for further management. There was an initial suspicion of pneumonia however this has been ruled out 1. Acute on chronic congestive heart failure with reduced ejection fraction Echo from 07/18/2023 demonstrated EF of 35% with moderately severe global left ventricular systolic dysfunction and severe posterior directed mitral valve insufficiency. Admitted to monitored bed managed with strict input and output, daily weight, low-sodium diet as well as diuretics 2. Valvular heart disease ? Patient echo from 07/18/2023 demonstrated severe posterior displaced mitral valve insufficiency and moderate tricuspid valve insufficiency. Plans for patient to follow-up with cardiology following his discharge 3. Severe pulmonary hypertension ? Complicating care patient RVSP on his echo was 77 mmHg. Patient has been seen in consultation by pulmonary medicine 4. Anemia - Secondary to chronic disorder monitoring H&H and transfuse if patient becomes symptomatic or hemoglobin falls below 7 ? With patient being deemed to be symptomatic an order was given for patient to be transfused with 1 unit PRBC. Patient underwent colonoscopy on 07/15/2023 found to have hemorrhoids no mass.EGD demonstrated benign-appearing esophageal stenosis and large hiatal hernia. 5. Chronic A-fib/flutter ? Rate controlled on systemic anticoagulation with Coumadin with daily monitoring of INR ordered 6. Chronic kidney disease stage III ? Monitoring kidney function which appears to be worsening in view of his diuresis his furosemide dose subsequently adjusted 7 . Coronary artery disease ? With previous PCI. Currently stable without any evidence of ischemia 8. Hypothyroidism - Patient is on levothyroxine home dose continued 9. GERD ? On PPI 10. BPH ? Patient is on finasteride as well as tamsulosin continued 11. Physical deconditioning - Requested for PT OT eval and group social worker to assist with discharge planning 12. Healthcare associated pneumonia ? Ruled out 13. ? 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 Consult placed to podiatry 14. DVT prophylaxis ? Patient is on Coumadin Time spent in the patient's overall evaluation,decision-making process, review of diagnostic data, adjustment of management, discussion with other providers, nursing nursing and ancillary staff involved in patient's care documentation, 52 Minutes Charges/Coding Visit Charges Inpatient E&M: 66365 [facility] L3
[2023-07-22 08:01] LABS: Iron 22 ug/dL (65-175); Iron Binding Capacity,Total 308 ug/dL (250-450); PERCENT IRON SATURATION 7.1 % (15.0-55.0)
--- NOTE | 2023-07-22 09:18 | PN.CC_ITS ---
Assessment & Plan Assessment/Plan (1) Combined systolic and diastolic congestive heart failure: QUALIFIERS: Heart failure chronicity: acute on chronic Qualified Code(s): I50.43 - Acute on chronic combined systolic (congestive) and diastolic (congestive) heart failure (2) Pulmonary hypertension: (3) Atrial flutter: QUALIFIERS: Atrial flutter type: typical Qualified Code(s): I48.3 - Typical atrial flutter (4) Hypoxia: (5) Secondary pulmonary arterial hypertension: PLAN: Plan RECOMMENDATIONS: 1. Continue cardiac optimization per cardiology 2. Wean oxygen as tolerated 3. Discontinue antibiotics and monitor clinically 4. Consider right heart cath as an outpatient 5. Walking oximetry prior to discharge 6. Continue empiric BiPAP with sleep and rescue IMPRESSIONS: 1. Acute hypoxic respiratory insufficiency secondary to acute on chronic combined CHF/A-fib with RVR Cardiology working on optimizing. Patient is benefiting from improved rate control. Patient does have elevated pulmonary artery pressures, but this is difficult to interpret in the setting of volume overload. Patient is on diuretics at this time at lower dose. Low clinical suspicion for pneumonia despite elevated white blood cell count. Patient is not having clinical symptoms such as purulent sputum or fevers. Cannot rule out an indolent infection, but patient's weight is up 15 to 30 pounds from his baseline. Patient did have a normal pulmonary function test just a year ago secondary to amiodarone. Given inability to diurese secondary to renal function, will continue empiric BiPAP to help with sleep and rescue during the day. It is not clear that this will be necessary on discharge. 2. Pulmonary hypertension Clinical suspicion for type II pulmonary hypertension. Elevated pulmonary pressures in the setting of volume overload are very difficult to interpret. Patient would benefit from volume optimization and a right heart catheterization to evaluate pulmonary pressures prior to initiation of any vasoactive m edications. Empiric BiPAP may help with overnight oxygen issues. 3. Chronic kidney disease stage IIIb Slightly improved. Patient does have an elevated creatinine at this time. Patient has been receiving diuretics. Diuretics were decreased secondary to renal function. Patient likely requires a holiday today from diuretics, but defer to cardiology. No indication for renal replacement therapy at this time, but this does complicate diuretic approach. I's and O's have been an accurate, so the use of daily weights will be necessary. 4. Advanced age/CAD/protracted hospitalization/hyperlipidemia/history of GI bleed/osteoporosis/debility Complicates care, management, recovery and prognosis. Okay to continue with current medications. INR is therapeutic, but patient is not showing any signs or symptoms of GI bleed at this time. Subjective Subjective Patient did okay overnight. No acute issues were reported. Patient states that he felt that the BiPAP was helpful, but he did not use it all night. Patient is not reporting any current chest pain or palpitations. Patient does state that he has had more issues with his incentive spirometer volumes. Patient is not reporting any dysuria Objective Data Objective Data Vital Signs: Vital Signs Temp Pulse Resp BP Pulse Ox O2 Del Method O2 Flow Rate 36.3 C L 86 20 H 102/80 96 Nasal Cannula 4 07/22/23 03:51 07/22/23 07:28 07/22/23 07:28 07/22/23 03:51 07/22/23 07:28 07/22/23 07:28 07/22/23 07:28 FiO2 35 07/22/23 03:56 Oxygen Flow Rate (L/min) 4 Oxygen Delivery Method Nasal Cannula Weight: 67.1 kg Body Mass Index (BMI) 22.4 Intake & Output: Intake and Output for Last 24 Hours 07/20/23 07/21/23 07/22/23 23:59 23:59 23:59 Intake Total 1750 / 1750 1020 / 1020 50 / 50 Output Total 150 / 150 1500 / 1500 350 / 350 Balance 1600 / 1600 -480 / -480 -300 / -300 Lab / Micro Data Attestation: I reviewed the patient's lab results. 07/22/23 05:20 07/22/23 05:20 Labs: Laboratory Results - last 24 hr 07/22/23 05:20: WBC 11.3 H, RBC 2.33 L, Hgb 7.7 L, Hct 24.8 L, MCV 106.4 H, MCH 33.0 H, MCHC 31.0 L, RDW Std Deviation 81.5 H, RDW Coeff of Pablo 20.8 H, Plt Count 289, MPV 9.6, Immature Gran % (Auto) 0.800, Neut % (Auto) 84.7 H, Lymph % (Auto) 4.9 L, [place] % (Auto) 8.0, Eos % (Auto) 1.2, Baso % (Auto) 0.4, Absolute Neuts (auto) 9.6 H, Absolute Lymphs (auto) 0.55 L, Nucleated RBC % 0.3, Hypochromasia 1+, Anisocytosis 3+, PT 36.4 H, INR 3.6, Sodium 145, Potassium 4.0, Chloride 112 H, Carbon Dioxide 27.0, Anion Gap 6, BUN 49 H, Creatinine 2.65 H, Estim Creat Clear Calc 20.31, Est GFR (MDRD) Af Amer 30 L, Est GFR (MDRD) No n-Af 25 L, BUN/Creatinine Ratio 18.5, Glucose 93, Calcium 8.0 L, Phosphorus 3.5, Magnesium 2.8 H, Iron 22 L, TIBC 308, Iron Saturation 7.1 L 07/22/23 08:41: Crossmatch See Detail Micro: Microbiology 07/18/23 21:45 Blood Culture (Wb) - Arm Right Blood Culture - Preliminary No growth in 48 hours. 07/18/23 21:36 Blood Culture (Wb) - Anticubital Left Blood Culture - Prelimi nary No growth in 48 hours. 07/18/23 23:59 Mucosa - Nasopharyngeal Coronavirus COVID-19 PCR - Final 07/18/23 20:02 Nasal Secretion SARS-CoV-2 & FLU Antigen (Rapid) - Final Rhythm Strip Rhythm Strip: A-fib Rate: 81 Physical Exam Const alert, oriented x3, no apparent distress and average body habitus Constitutional Narrative: No conversational dyspnea noted. Moves around the bed independently General Appearance: cooperative, well kempt and well developed HEENT normocephalic, head/scalp atraumatic and moist oral mucous membranes Eyes PERRL, EOMs intact bilaterally and conjunctivae normal Neck supple, no JVD, thyroid normal and no carotid bruits General: trachea midline Chest inspection of chest normal Resp normal respiratory effort, no retractions and no use of accessory muscles Auscultation: rales bilateral (Improving) base; Negative for rhonchi or wheezes Cardio regular rate, S1 normal heart sound, S2 normal heart sound, no murmurs, no rub a nd no gallops Rate: tachycardic Rhythm: abnormal rhythm irregularly irregular Heart Sounds: murmur systolic II/ crescendo-decrescendo mid GI normal to inspection, nondistended, normoactive bowel sounds, soft to palpation, non-tender and non-distended Extremity General Extremity: Negative for clubbing or edema Skin no rashes or lesions noted General Skin Exam: no breakdown Neuro oriented x3, CN's II-XII intact bilaterally, moves all extremities, no focal motor deficits and no sensory deficits noted Speech: speech normal Psych affect normal Charges/Coding Visit Charges Inpatient E&M: 31138 Subs Hosp L2
[2023-07-22 09:19] LABS: Vitamin B12 1097 pg/mL (211-911)
--- NOTE | 2023-07-22 09:20 | PCM.PN.CARD ---
Subjective Subjective Appears comfortable however continues to complain of shortness of breath. Sitting up in chair. Objective Data Vital Signs: Vital Signs Temp Pulse Resp BP Pulse Ox O2 Del Method O2 Flow Rate 97.4 F L 86 20 H 102/80 96 Nasal Cannula 4 07/22/23 03:51 07/22/23 07:28 07/22/23 07:28 07/22/23 03:51 07/22/23 07:28 07/22/23 07:28 07/22/23 07:28 FiO2 35 07/22/23 03:56 Oxygen Flow Rate (L/min) 4 Oxygen Delivery Method Nasal Cannula Weight: 147 lb 14.883 oz Body Mass Index (BMI) 22.4 Intake & Output: Intake and Output for Last 24 Hours 07/20/23 07/21/23 07/22/23 23:59 23:59 23:59 Intake Total 1750 / 1750 1020 / 1020 50 / 50 Output Total 150 / 150 1500 / 1500 350 / 350 Balance 1600 / 1600 -480 / -480 -300 / -300 Lab / Micro Data 07/22/23 05:20 07/22/23 05:20 Labs: Laboratory Results - last 24 hr 07/22/23 05:20: WBC 11.3 H, RBC 2.33 L, Hgb 7.7 L, Hct 24.8 L, MCV 106.4 H, MCH 33.0 H, MCHC 31.0 L, RDW Std Deviation 81.5 H, RDW Coeff of Pablo 20.8 H, Plt Count 289, MPV 9.6, Immature Gran % (Auto) 0.800, Neut % (Auto) 84.7 H, Lymph % (Auto) 4.9 L, [place] % (Auto) 8.0, Eos % (Auto) 1.2, Baso % (Auto) 0.4, Absolute Neuts (auto) 9.6 H, Absolute Lymphs (auto) 0.55 L, Nucleated RBC % 0.3, Hypochromasia 1+, Anisocytosis 3+, PT 36.4 H, INR 3.6, Sodium 145, Potassium 4.0, Chloride 112 H, Carbon Dioxide 27.0, Anion Gap 6, BUN 49 H, Creatinine 2.65 H, Estim Creat Clear Calc 20.31, Est GFR (MDRD) Af Amer 30 L, Est GFR (MDRD) Non-Af 25 L, BUN/Creatinine Ratio 18.5, Glucose 93, Calcium 8.0 L, Phosphorus 3.5, Magnesium 2.8 H, Iron 22 L, TIBC 308, Iron Saturation 7.1 L, Vitamin B12 1097 H 07/22/23 08:41: Crossmatch See Detail Micro: Microbiology 07/18/23 21:45 Blood Culture (Wb) - Arm Right Blood Culture - Preliminary No growth in 48 hours. 07/18/23 21:36 Blood Culture (Wb) - Anticubital Left Blood Culture - Preliminary No growth in 48 hours. Rhythm Strip Rhythm Strip: A-fib Rate: 80 Cardiology Labs/Tests 07/22/23 05:20: WBC 11.3 H, RBC 2.33 L, Hgb 7.7 L, Hct 24.8 L, MCV 106.4 H, MCH 33.0 H, MCHC 31.0 L, Plt Count 289, MPV 9.6, Immature Gran % (Auto) 0.800, Neut % (Auto) 84.7 H, Lymph % (Auto) 4.9 L, [place] % (Auto) 8.0, Eos % (Auto) 1.2, Baso % (Auto) 0.4, Absolute Neuts (auto) 9.6 H, Nucleated RBC % 0.3, PT 36.4 H, INR 3.6, Sodium 145, Potassium 4.0, Chloride 112 H, Carbon Dioxide 27.0, Anion Gap 6, BUN 49 H, Creatinine 2.65 H, Est GFR (MDRD) Af Amer 30 L, Est GFR (MDRD) Non-Af 25 L, BUN/Creatinine Ratio 18.5, Glucose 93, Calcium 8.0 L, Phosphorus 3.5, Magnesium 2.8 H, Iron 22 L, TIBC 308, Iron Saturation 7.1 L Rhythm: EKG: ECHO: Stress Test: Cardiac Cath: PCI: CT Surgery: Holter monitor: EPS: PPM: CXR: Chest CT Scan: Physical Exam Narrative No apparent distress. Heart sounds 1 and 2 are noted. Irregularly irregular. Decreased breath sounds noted right base. Alert. Awake. Moving all 4 extremities. No ankle edema. Assessment & Plan Assessment/Plan (1) Combined systolic and diastolic congestive heart failure: QUALIFIERS: Heart failure chronicity: acute on chronic Qualified Code(s): I50.43 - Acute on chronic combined systolic (congestive) and diastolic (congestive) heart failure PLAN: Continue diuretics. Continue hydralazine/isosorbide. Continue beta-blockers. (2) Mitral regurgitation: PLAN: Severe mitral valve regurgitation. For afterload reduction. Hydralazine/nitrates. No ARIELLE inhibitors in view of kidney disease. (3) Atrial fibrillation: PLAN: On warfarin for anticoagulation. Monitor hemoglobin. If further drops in hemoglobin, then will be constrained to recommend stopping anticoagulation. Patient's heart rate has been difficult to control. 1 option would be referring to electrophysiology as outpatient for consideration for AV pam ablation and implantation of a permanent pacemaker. (4) Pulmonary hypertension: PLAN: Likely secondary to severe mitral regurgitation. See above. (5) Coronary artery disease: PLAN: Beta-blockers. (6) HAP (hospital-acquired pneumonia): PLAN: On antibiotics. Continue to follow as per hospitalist service. (7) Chronic kidney disease, stage 3b: PLAN: Monitor creatinine.
--- NOTE | 2023-07-22 09:38 | CASEMGMT ---
Social work As per admitting RN, pt had stated [place] is his POA, he is not able to bring in the documents at this time however. JACQUES Pereira
--- NOTE | 2023-07-22 09:52 | ART_ITS ---
Reason For Study: LT TOE ULCER Procedure A bilateral lower extremity continuous wave Doppler with analog waveform analysis,segmental pressures,and ankle brachial indexes without exercise. Left Segmental Pressures Left brachial= 146mmHg. Left posterior tibial artery = >254mmHg. Left dorsalis pedis artery = 177mmHg. Unable to obtain LT DIGIT D/T bandages/wraps. The left posterior tibial artery waveforms are triphasic. The left dorsalis pedis waveforms are triphasic. Right Segmental Pressures Unable to obtain RT BP D/T IV. Right posterior tibial artery = >254mmHg. Right dorsalis pedis artery = 199mmHg. Right digit = 156 mmHg. The right posterior tibial artery waveforms are triphasic. The right dorsalis pedis waveforms are triphasic. Indices The right resting ankle brachial index is 1.36. The right ankle brachial index by the dorsalis pedis is 1.36. The right digital-brachial index is 1.07. The left resting ankle brachial index is 1.21. The left ankle brachial index by the dorsalis pedis is 1.21. VL/Lower Ext Art Exam w/o Exercis Interpretation Summary Right SAM 1.36, normal. TBI and Doppler/PVR waveforms of the right leg normal a t rest. Left SAM 1.21, normal. Doppler/PVR waveforms of the left leg normal at rest. Le ft TBI not obtained due to dressings Ordering Physician: Venkat Gutierrez Referring Physician: VENKAT GUTIERREZ DPM Performed By: Yasmeen Arredondo, KAT, RVT
--- NOTE | 2023-07-22 10:00 | RAD_ITS ---
STUDY: X-RAY - LEFT FOOT CLINICAL: Male, 83 years old. Gangrene of the left foot. TECHNIQUE: 3 view(s) of the foot. COMPARISON: None. FINDINGS: Marked osteopenia. Moderate arthrosis of the tibiotalar joint. Moderate arthrosis of the subtalar joint. Inferior calcaneal spur. Moderate arthrosis of the mid foot with pes planus deformity. Moderate arthrosis of the TMT joints. Moderate arthrosis of the MTP and IP joints with hammertoe deformities. Mild diffuse soft tissue swelling. RAD/Foot min 3 Views IMPRESSION: Osteopenia with osteoarthritic changes and diffuse soft tissue swelling. No other abnormality. Electronically Signed: Ang Bauer MD at 10:43 EST ,
--- NOTE | 2023-07-22 10:30 | CON.PCM_ITS ---
Assessment & Plan Assessment/Plan (1) Peripheral vascular disease, unspecified: PLAN: Exam performed Radiographs taken, reviewed hammertoe contracture noted to left third digit sign of bone infection or deep soft tissue infection Clinically patient has semirigid left third digit hammertoe with distal tuft ulceration, no evidence of dry gangrene at this time Patient does have diminished blood flow with obvious microvascular changes ar terial studies ordered Today the left third toe wound was excisionally debrided down to including level of subcutaneous tissue: Using a #15 blade the left third digit wound was debrided down to including level subcutaneous tissue of all nonviable tissue using a #15 blade without incident. Stable granular base noted postdebridement. Pre and postdebridement measurements documented in objective section. Hemostasis obtained with light compression. Patient tolerated procedure well. No anesthesia used. Dress site with Betadine 4 x 4's and Kerlix along with light Alpesh bandage - recommend nursing dressing changes daily Recommend surgical shoe for ambulation left foot to offload ulcerations Will follow-up with the patient on 07/25/2023 to discuss arterial study results and reevaluate wound site no infection to wound site at this time Will consider flexor tenotomy in the outpatient status to prevent future wound recurrence (2) Other hammer toe(s) (acquired), left foot: (3) Non-pressure chronic ulcer of other part of left foot with necrosis of bone: HPI Consult Data Date of Consult: 07/22/23 HPI Narrative HPI Narrative: RICHIE HANSEN, is a 83 M who admitted for CHF exacerbation likely. I was consulted for a left third digit ulceration. Patient has constitutional symptoms. Patient notes pain to his left third digit. Patient has history of coronary artery disease and risk factors for peripheral arterial disease. Patient denies any rest pain. Pain is predominantly when patient is maintaining ambulatory status. Patient denies any leg cramping at current. Patient denies any drainage to site. [facility] Medical History Acute constipation Acute exacerbation of chronic low back pain Acute gastrointestinal bleeding Acute kidney injury superimposed on chronic kidney disease Ambulates with cane Anemia Anxiety Arthritis Atherosclerotic heart disease of ruby coronary artery without angina pectoris Atrial fibrillation Atypical atrial flutter (12/2020) Back pain Benign prostatic hyperplasia BPH (benign prostatic hyperplasia) Cancer Cardiology follow-up encounter Chronic anemia Chronic heart failure with preserved ejection fraction (HFpEF) Chronic kidney disease Chronic pain Chronic renal insufficiency Colitis COPD (chronic obstructive pulmonary disease) CPAP (continuous positive airway pressure) dependence Debility Diarrhea Difficulty chewing Dysphagia Easy bruising Elevated LFTs Elevated liver enzymes Essential (primary) hypertension Excessive bleeding Gastric reflux GI bleed (2012) Hearing loss, left Hearing loss, right Hiatal hernia High cholesterol History of colon polyps History of diverticulitis History of echocardiogram History of edema History of heart attack History of hyperthyroidism History of leukemia History of pain when walking History of renal disease History of stress test HLD (hyperlipidemia) Hypertension Hypothyroidism Irregular heart beat Kidney disease Kidney stones Myocardial infarct Nausea and vomiting Non-rheumatic tricuspid valve insufficiency Non-smoker Nonrheumatic mitral (valve) insufficiency 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 Osteoarthritis Paroxysmal atrial fibrillation Rheumatoid arthritis Secondary pulmonary arterial hypertension Sleep apnea Sleep apnea Stage 3b chronic kidney disease Thoracic aortic aneurysm (TAA) Thyroid disease Wears glasses Home Medications denosumab 60 mg/mL subcutaneous syringe (Prolia) 60 mg SQ .[id number] BONES 12/09/20 [History Last Taken 11/10/22] tamsulosin 0.4 mg capsule 0.4 mg PO QHS bladder 11/18/21 [History Last Taken 06/20/23] levothyroxine 25 mcg tablet 50 mcg PO DAILY thyroid 02/17/22 [History Last Taken 06/21/23] vitamin B complex 1 cap PO BID supplement 05/01/22 [History Last Taken 02/12/23] linaclotide 72 mcg capsule (Linzess) 72 mcg PO DAILY PRN Diarrhea 06/15/22 [History Last Taken Unknown] ascorbic acid (vitamin C) 500 mg tablet 500 mg PO DAILY supplement 07/20/22 [History Last Taken 06/21/23] finasteride 5 mg tablet 5 mg PO DAILY prostate 08/05/22 [History Last Taken 06/21/23] cholecalciferol (vitamin D3) 25 mcg (1,000 unit) capsule (Vitamin D3) 1,000 unit PO DAILY supplement 02/19/23 [History Last Taken Unknown] polyethylene glycol 3350 17 gram oral powder packet 17 g PO DAILY constipation 02/19/23 [History Last Taken Unknown] amiodarone 100 mg tablet 100 mg PO BID heart 02/21/23 [History Last Taken 06/21/23] sucralfate 1 gram tablet 1 g PO TID@0700,1100,1600 stomach 30 days #90 tabs 03/21/23 [Rx Last Taken 06/21/23] famotidine 40 mg tablet 40 mg PO DAILY stomach #30 tabs 04/11/23 [Rx Last Taken Unknown] lactulose 10 gram/15 mL oral solution 10 g (15 mL) PO DAILY constipation 30 days #450 mL 05/18/23 [Rx Last Taken Unknown] loratadine 10 mg tablet (Claritin) 10 mg PO DAILY allergies 06/16/23 [History Last Taken Unknown] warfarin 3 mg tablet (Jantoven) 3 mg PO SuTuThSa@1700 blood thinner #0 tabs 06/21/23 [Rx Last Taken 06/19/23] warfarin 4 mg tablet See Rx Instructions .Route .COMPLEX blood thinner #60 tabs 06/21/23 [Rx Last Taken 06/20/23] furosemide 40 mg tablet 40 mg PO DAILY 30 days #30 tabs 07/06/23 [Rx Last Taken Unknown] metoprolol tartrate 25 mg tablet 25 mg PO BID #0 tabs 07/06/23 [Rx Last Taken Unknown] acetaminophen 500 mg tablet 1,000 mg PO Q8 PRN pain 07/19/23 [History Last Taken Unknown] Allergy/AdvReac Type Severity Reaction Status Date / Time diclofenac Allergy rash Verified 07/15/23 14:49 prednisone Allergy Rash Verified 07/15/23 14:49 Family History Father Cancer Prostate cancer Mother Hypertension Sister Hypertension Surgical History History of back surgery History of back surgery History of cardiac catheterization History of cardioversion (06/18/19) History of coronary artery stent placement (08/04/00) History of electrophysiologic study (08/08/00) History of esophagogastroduodenoscopy (EGD) History of hemorrhoidectomy History of hernia repair History of left heart catheterization (07/17/12) History of Zenaida fundoplication History of radiofrequency ablation procedure for cardiac arrhythmia (11/11/11) Social History household members: none Smoking Status: Never smoker alcohol intake: never substance use type: does not use caffeine: No ROS Constitutional Constitutional: Denies daytime sleepiness, lethargy or malaise Eyes Eyes: Denies blindness, blind spots or bloody eye ENT HEENT: Denies change in voice, dental pain or halitosis Cardiovascular Cardiovascular: Reports arrhythmia on telemetry; Denies abdominal pain or claudication Respiratory/Chest Respiratory/Chest: Reports dyspnea and dyspnea on exertion; Denies change in phlegm color Gastrointestinal Gastrointestinal: Denies bloating, change in bowel habits or dry heaves Physical Exam Narrative Vascular: Dorsalis pedis biphasic on Doppler examination, posterior tibial artery on the left unable to be dopplered. Right lower extremity dorsalis pedis posterior tibial biphasic on Doppler examination. Varicosities noted to LACY malleoli region bilaterally with +1 pitting edema. Atrophic skin changes such as skin thinning with a shiny taut appearance noted. Absent digital hair growth. Capillary fill time is less than 5 seconds to digits 1 through 5 bilaterally. Neurologic: Light touch and protective sensation intact bilateral feet. Dermatologic: Callus noted distal tuft of third digit with bleeding underneath site. Upon debridement yielded full-thickness wound measuring 0.5 x 0.5 x 0.2 cm. No acute signs of infection. Patient has hammertoe which is the deformity causing the ulceration during ambulation. Musculoskeletal: Patient has stage III flatfoot left lower extremity with semirigid hammertoe contracture left third digit causing distal tuft ulceration. No sign DVT bilaterally. Const alert and oriented x3 Lab / Micro Data 07/22/23 05:20 07/22/23 05:20 Labs: Laboratory Results - last 24 hr 07/22/23 05:20: WBC 11.3 H, RBC 2.33 L, Hgb 7.7 L, Hct 24.8 L, MCV 106.4 H, MCH 33.0 H, MCHC 31.0 L, RDW Std Deviation 81.5 H, RDW Coeff of Pablo 20.8 H, Plt Count 289, MPV 9.6, Immature Gran % (Auto) 0.800, Neut % (Auto) 84.7 H, Lymph % (Auto) 4.9 L, [place] % (Auto) 8.0, Eos % (Auto) 1.2, Baso % (Auto) 0.4, Absolute Neuts (auto) 9.6 H, Absolute Lymphs (auto) 0.55 L, Nucleated RBC % 0.3, Hypochromasia 1+, Anisocytosis 3+, PT 36.4 H, INR 3.6, Sodium 145, Potassium 4.0, Chloride 112 H, Carbon Dioxide 27.0, Anion Gap 6, BUN 49 H, Creatinine 2.65 H, Estim Creat Clear Calc 20.31, Est GFR (MDRD) Af Amer 30 L, Est GFR (MDRD) Non-Af 25 L, BUN/Creatinine Ratio 18.5, Glucose 93, Calcium 8.0 L, Phosphorus 3.5, Magnesium 2.8 H, Iron 22 L, TIBC 308, Iron Saturation 7.1 L, Vitamin B12 1097 H 07/22/23 08:41: Crossmatch See Detail Micro: Microbiology 07/18/23 21:45 Blood Culture (Wb) - Arm Right Blood Culture - Preliminary No growth in 48 hours. 07/18/23 21:36 Blood Culture (Wb) - Anticubital Left Blood Culture - Preliminary No growth in 48 hours. Rhythm Strip Rhythm Strip: A-fib Rate: 80
[2023-07-22] MEDS: Lactulose 20 GM/30 ML UDC 10 GM PO (10:33)
[2023-07-22] MEDS: hydrALAZINE 50 MG Tablet PO ×2 (10:34→20:53)
[2023-07-22] MEDS: Vitamin B Comp W-C Capsule 1 CAP PO ×2 (10:35→20:54)
[2023-07-22] MEDS: Furosemide 40 MG Tablet PO (10:35)
[2023-07-22] MEDS: Cholecalciferol (VIT D3) 25 MCG TABLET (1,000 UNITS) PO (10:35)
[2023-07-22] MEDS: Metoprolol Tartrate 100 MG Tablet PO ×2 (10:36→20:54)
[2023-07-22] MEDS: Famotidine 20 MG Tablet PO (10:36)
[2023-07-22] MEDS: Potassium Chloride Oral Tablet 20 MEQ PO ×2 (10:37→20:55)
[2023-07-22] MEDS: Finasteride 5 MG Tablet PO (10:37)
[2023-07-22] MEDS: Ascorbic Acid 500 MG Tablet PO (10:37)
[2023-07-22] MEDS: Isosorbide DN 10 MG Tablet 5 MG PO ×2 (10:38→20:57)
[2023-07-22] MEDS: Amiodarone 200 MG Tablet PO ×2 (10:39→20:58)
[2023-07-22] MEDS: Empagliflozin 10 MG Tablet PO (10:50)
--- NOTE | 2023-07-22 11:07 | PCM.DC.SUM ---
Providers Date of Admission: 07/18/23 Primary Care Physician: Dr. César Chinchilla MD Consultations 07/18/23 22:32 Consult: Cardiology Routine Consulting Provider: Tremaine Molina Reason for Consult: Acute exacerbation of chronic diastolic CHF EMERGENT Consult: No Notified: Yes Date Notified: 07/19/23 Time Notified: 05:58 Method of Notification: Text 07/20/23 07:17 Consult: Agriculture Mechanic / Pulmonary Medicine Routine Consulting Provider: Pulmonary Medicine mitchell Erwin Reason for Consult: hypoxia, ? pneumonia EMERGENT Consult: No Notified: Yes Date Notified: 07/20/23 Time Notified: 07:17 Method of Notification: Verbal 07/22/23 09:49 Consult: Podiatry Routine Consulting Provider: Venkat Gutierrez Reason for Consult: L middle toe dry gangrene EMERGENT Consult: No Notified: Yes Date Notified: 07/22/23 Time Notified: 09:50 Method of Notification: Text Reason For Visit: HOSPITAL-ACQUIRED PNEUMONIA AND ACUTE EXACERBATION Diagnosis Discharge Diagnosis (1) Peripheral vascular disease, unspecified: Status: Acute Code(s): I73.9 - Peripheral vascular disease, unspecified (2) Other hammer toe(s) (acquired), left foot: Status: Acute Code(s): M20.42 - Other hammer toe(s) (acquired), left foot (3) Non-pressure chronic ulcer of other part of left foot with necrosis of bone: Status: Chronic Code(s): L97.524 - Non-pressure chronic ulcer of other part of left foot with necrosis of bone Plan Patient is an 83-year-old gentleman admitted with progressive shortness of breath diagnosed with acute congestive heart failure admitted to monitored bed for further management. There was an initial suspicion of pneumonia however this has been ruled out 1. Acute on chronic congestive heart failure with reduced ejection fraction Echo from 07/18/2023 demonstrated EF of 35% with moderately severe global left ventricular systolic dysfunction and severe posterior directed mitral valve insufficiency. Admitted to monitored bed managed with strict input and output, daily weight, low-sodium diet as well as diuretics 2. Valvular heart disease ? Patient echo from 07/18/2023 demonstrated severe posterior displaced mitral valve insufficiency and moderate tricuspid valve insufficiency. Plans for patient to follow-up with cardiology following his discharge 3. Severe pulmonary hypertension ? Complicating care patient RVSP on his echo was 77 mmHg. Patient has been seen in consultation by pulmonary medicine 4. Anemia - Secondary to chronic disorder monitoring H&H and transfuse if patient becomes symptomatic or hemoglobin falls below 7 ? With patient being deemed to be symptomatic an order was given for patient to be transfused with 1 unit PRBC. Patient underwent colonoscopy on 07/15/2023 found to have hemorrhoids no mass.EGD demonstrated benign-appearing esophageal stenosis and large hiatal hernia. 5. Chronic A-fib/flutter ? Rate controlled on systemic anticoagulation with Coumadin with daily monitoring of INR ordered 6. Chronic kidney disease stage III ? Monitoring kidney function which appears to be worsening in view of his diuresis his furosemide dose subsequently adjusted 7 . Coronary artery disease ? With previous PCI. Currently stable without any evidence of ischemia 8. Hypothyroidism - Patient is on levothyroxine home dose continued 9. GERD ? On PPI 10. BPH ? Patient is on finasteride as well as tamsulosin continued 11. Physical deconditioning - Requested for PT OT eval and social media marketing analyst to assist with discharge planning 12. Healthcare associated pneumonia ? Ruled out 13. ? 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 Consult placed to podiatry patient was seen by Dr. Venkat Gutierrez he plans to follow-up with patient at the TCU 14. DVT prophylaxis ? Patient is on Coumadin Time spent in the patient's overall evaluation,decision-making process, review of diagnostic data, adjustment of management, discussion with other providers, nursing nursing and ancillary staff involved in patient's care documentation, 52 Minutes Medications at Discharge Home Medications denosumab 60 mg/mL subcutaneous syringe (Prolia) 60 mg SQ .[id number] BONES 12/09/20 tamsulosin 0.4 mg capsule 0.4 mg PO QHS bladder 11/18/21 levothyroxine 25 mcg tablet 50 mcg PO DAILY thyroid 02/17/22 vitamin B complex 1 cap PO BID supplement 05/01/22 linaclotide 72 mcg capsule (Linzess) 72 mcg PO DAILY PRN Diarrhea 06/15/22 ascorbic acid (vitamin C) 500 mg tablet 500 mg PO DAILY supplement 07/20/22 finasteride 5 mg tablet 5 mg PO DAILY prostate 08/05/22 cholecalciferol (vitamin D3) 25 mcg (1,000 unit) capsule (Vitamin D3) 1,000 unit PO DAILY supplement 02/19/23 polyethylene glycol 3350 17 gram oral powder packet 17 g PO DAILY constipation 02/19/23 amiodarone 100 mg tablet 100 mg PO BID heart 02/21/23 sucralfate 1 gram tablet 1 g PO TID@0700,1100,1600 stomach 30 days #90 tabs 03/21/23 famotidine 40 mg tablet 40 mg PO DAILY stomach #30 tabs 04/11/23 lactulose 10 gram/15 mL oral solution 10 g (15 mL) PO DAILY constipation 30 days #450 mL 05/18/23 loratadine 10 mg tablet (Claritin) 10 mg PO DAILY allergies 06/16/23 warfarin 3 mg tablet (Jantoven) 3 mg PO SuTuThSa@1700 blood thinner #0 tabs 06/21/23 warfarin 4 mg tablet See Rx Instructions .Route .COMPLEX blood thinner #60 tabs 06/21/23 furosemide 40 mg tablet 40 mg PO DAILY 30 days #30 tabs 07/06/23 metoprolol tartrate 25 mg tablet 25 mg PO BID #0 tabs 07/06/23 acetaminophen 500 mg tablet 1,000 mg PO Q8 PRN pain 07/19/23 acidophilus 25 million cell-pectin, citrus 100 mg tablet 2 tab PO BID #0 tabs 07/22/23 albuterol sulfate 2.5 mg/3 mL (0.083 %) solution for nebulization 2.5 mg (3 mL) inhalation Q6HWA.RT #0 mL 07/22/23 empagliflozin 10 mg tablet (Jardiance) 10 mg PO DAILY #0 tabs 07/22/23 hydralazine 50 mg tablet 50 mg PO 4X/DAY #0 tabs 07/22/23 isosorbide dinitrate 10 mg tablet 5 mg (1/2 x 10 mg) PO BID #0 tabs 07/22/23 magnesium chloride 64 mg (magnesium chloride) tablet,delayed release (Mag 64) 128 mg (2 x 64 mg) PO BID #0 tabs 07/22/23 melatonin 3 mg tablet 3 mg PO QHS PRN PRN Insomnia #0 tabs 07/22/23 nitroglycerin 0.4 mg sublingual tablet 0.4 mg sublingual Q5M PRN Cardiac/Chest Pain #0 tabs 07/22/23 potassium chloride 20 mEq tablet,extended release(part/cryst) (Klor-Con M) 20 meq PO BID #0 tabs 07/22/23 promethazine 25 mg/mL injection solution 25 mg IM Q6H PRN PRN Breakthrough nausea/vomiting #0 mL 07/22/23 Hospital Course Summary of Care Provided Minutes Spent on Discharge: 52 Physical Exam Narrative GENERAL: cooperative HEENT: Atraumatic; normocephalic EYES; Anicteric, Normal Conjunctiva NECK; supple, normal thyroid, RESPIRATORY: Diminished to auscultation CARDIOVASCULAR: Regular S1 S2, GI: soft, normoactive bowel sounds, : No Renal angle tenderness; EXTREMITIES: Dry gangrene involving the left middle to MUSCULOSKELETAL: no muscle wasting NEURO: Awake; no lateralizing signs. SKIN: No Rash PSYCH; Flat affect Weight / BMI Weight Weight: 67.1 kg Body Mass Index (BMI) 22.4 ABG / Lab / Microbiology Data 07/22/23 05:20 07/22/23 05:20 Laboratory: Laboratory Results - last 24 hr 07/22/23 05:20: WBC 11.3 H, RBC 2.33 L, Hgb 7.7 L, Hct 24.8 L, MCV 106.4 H, MCH 33.0 H, MCHC 31.0 L, RDW Std Deviation 81.5 H, RDW Coeff of Pablo 20.8 H, Plt Count 289, MPV 9.6, Immature Gran % (Auto) 0.800, Neut % (Auto) 84.7 H, Lymph % (Auto) 4.9 L, [place] % (Auto) 8.0, Eos % (Auto) 1.2, Baso % (Auto) 0.4, Absolute Neuts (auto) 9.6 H, Absolute Lymphs (auto) 0.55 L, Nucleated RBC % 0.3, Hypochromasia 1+, Anisocytosis 3+, PT 36.4 H, INR 3.6, Sodium 145, Potassium 4.0, Chloride 112 H, Carbon Dioxide 27.0, Anion Gap 6, BUN 49 H, Creatinine 2.65 H, Estim Creat Clear Calc 20.31, Est GFR (MDRD) Af Amer 30 L, Est GFR (MDRD) Non-Af 25 L, BUN/Creatinine Ratio 18.5, Glucose 93, Calcium 8.0 L, Phosphorus 3.5, Magnesium 2.8 H, Iron 22 L, TIBC 308, Iron Saturation 7.1 L, Vitamin B12 1097 H 07/22/23 08:41: Blood Type B POSITIVE, Antibody Screen NEGATIVE, Crossmatch See Detail Microbiology: Microbiology 07/18/23 21:45 Blood Culture (Wb) - Arm Right Blood Culture - Preliminary No growth in 48 hours. 07/18/23 21:36 Blood Culture (Wb) - Anticubital Left Blood Culture - Preliminary No growth in 48 hours. 07/18/23 23:59 Mucosa - Nasopharyngeal Coronavirus COVID-19 PCR - Final 07/18/23 20:02 Nasal Secretion SARS-CoV-2 & FLU Antigen (Rapid) - Final Radiography Diagnostic Testing: Radiology Impression Foot X-Ray 07/22/23 10:00 IMPRESSION: Osteopenia with osteoarthritic changes and diffuse soft tissue swelling. No other abnormality. Electronically Signed: Ang Bauer MD at 10:43 EST Reading Location ID and State: [address] [place] [address] , Service support , D/C Instructions Discharge Diet: 2000 mg Sodium Diet Discharge Activity: Return to Normal Activity Call your doctor if you observe: Fever of 101 or Higher, Shortness of breath, Fainting spells and Chest pain Meaningful Use Info Meaningful Use Diagnoses (Choose all that apply): CHF AMI/Post PCI/Angioplasty Documented LVEF (%): 35 CHF ARIELLE/ARB ordered at discharge?: No Reason ARIELLE/ARB not ordered?: Worsening renal disease Documented LVEF (%): 35 Discharge Plan Admission Admit Date/Time: 07/18/23 22:19 Attending Provider: Melvin Gurrola Primary Care Provider: César Chinchilla Consulting Providers: Tremaine Molina; Melvin Pollard; Gurjit Mcpherson; Dinesh Peters; Greg Caal; Joel Avina; Genie Taveras NP; Nagi Shanks; Venkat Gutierrez Discharge Orders/Prescriptions Prescriptions: New isosorbide dinitrate 10 mg Tablet 5 mg PO BID Qty: 0 0RF albuterol sulfate 2.5 mg /3 mL (0.083 %) Solution For Nebulization 2.5 mg inhalation Q6HWA.RT Qty: 0 0RF melatonin 3 mg Tablet 3 mg PO QHS PRN PRN (Reason: Insomnia) Qty: 0 0RF potassium chloride [Klor-Con M20] 20 mEq Tablet,Er Particles/Crystals 20 meq PO BID Qty: 0 0RF promethazine 25 mg/mL Solution 25 mg IM Q6H PRN PRN (Reason: Breakthrough nausea/vomiting) Qty: 0 0RF nitroglycerin 0.4 mg Tablet, Sublingual 0.4 mg sublingual Q5M PRN (Reason: Cardiac/Chest Pain) Qty: 0 0RF hydralazine 50 mg Tablet 50 mg PO 4X/DAY Qty: 0 0RF acidophilus-pectin, citrus 25 million cell -100 mg Tablet 2 tab PO BID Qty: 0 0RF Mag 64 64 mg Tablet,Delayed Release (Dr/Ec) 128 mg PO BID Qty: 0 0RF Jardiance 10 mg Tablet 10 mg PO DAILY Qty: 0 0RF Continued tamsulosin 0.4 mg capsule 0.4 mg PO QHS levothyroxine 25 mcg tablet 50 mcg PO DAILY Patient Comments: take 1 tablet by mouth once daily Linzess 72 mcg capsule 72 mcg PO DAILY PRN (Reason: Diarrhea) Hold Instructions: Resume on 02/22/23. Restart on Discharge from [facility] ascorbic acid (vitamin C) 500 mg tablet 500 mg PO DAILY finasteride 5 mg tablet 5 mg PO DAILY Prolia 60 MG/ML syringe 60 mg SQ .[id number] vitamin B complex Capsule 1 cap PO BID polyethylene glycol 3350 17 gram Powder In Packet 17 g PO DAILY cholecalciferol (vitamin D3) [Vitamin D3] 25 mcg (1,000 unit) Capsule 1,000 unit PO DAILY amiodarone 100 mg tablet 100 mg PO BID sucralfate 1 gram Tablet 1 g PO TID@0700,1100,1600 30 Days Qty: 90 0RF furosemide 40 mg Tablet 40 mg PO DAILY 30 Days Qty: 30 0RF metoprolol tartrate 25 mg Tablet 25 mg PO BID Qty: 0 0RF acetaminophen 500 mg Tablet 1,000 mg PO Q8 PRN (Reason: pain) loratadine [Claritin] 10 mg tablet 10 mg PO DAILY warfarin [Jantoven] 3 mg Tablet 3 mg PO SuTuThSa@1700 Qty: 0 0RF warfarin 4 mg tablet See Rx Instructions .Route .COMPLEX Qty: 60 0RF Protocol: Dose Management Condition: Tuesday Dose/Route: 4 mg Instruction: 1 x 4 mg tablet Condition: Tuesday Dose/Route: 4 mg Instruction: 1 x 4 mg tablet Condition: Tuesday Dose/Route: 4 mg Instruction: 1 x 4 mg tablet Condition: Tuesday Dose/Route: 4 mg Instruction: 1 x 4 mg tablet Condition: Dose/Route: 2 mg Instruction: 1 x 2 mg tablet Condition: Tuesday Dose/Route: 2 mg Instruction: 1 x 2 mg tablet Condition: Tuesday Dose/Route: 2 mg Instruction: 1 x 2 mg tablet Protocol Text: Adjustment Start Date: Tuesday06/17/23 INR Value: 1.7 INR Date: 06/17/23 Recheck Date: 06/24/23 Rx Instructions: 4mg Tue, Tue, Tue. 3mg Tue, , , Sat orally; famotidine 40 mg tablet 40 mg PO DAILY Qty: 30 11RF lactulose 10 gram/15 mL solution 10 g PO DAILY 30 Days Qty: 450 0RF Rx Instructions: take once a day and can take up to 2 more times in a day as needed for constipation Referrals / Follow Up: Venkat Gutierrez DPM [Med Staff - Active Staff] - Within 1 Week César Chinchilla MD [Primary Care Provider] - Within 2 Weeks Disposition Disposition (needs filled in before D/C Order can be placed): Shelter Facility Charges/Coding Visit Charges Inpatient E&M: 01288 Disch Hosp >30min
[2023-07-22 11:11] LABS: Bedside Glucose 150 mg/dL (74-106)
--- NOTE | 2023-07-22 11:41 | CASEMGMT ---
Social Work As per physician, pt will be able to return to TCU today. SW faxed all discharge paperwork over to TCU. SW spoke w/pt, let him know he can go back to TCU today. SW inquired who he would like SW to call, Neelima or Olivia(pt's sisters). Pt states he would like SW to call both. SW called both Neelima and Olivia, let them both know pt will go back to TCU this afternoon. Both state understanding. Plan: TCU this afternoon, skilled JAQCUES Pereira
--- NOTE | 2023-07-22 17:14 | NURSING ---
Report called to RADHA Londono on TCU
[2023-07-22] MEDS: Ondansetron 4 MG/2 ML Vial IV (20:11)
[2023-07-22] MEDS: 0.9% Saline Lock 10 ML Syringe IV (20:11)
[2023-07-22] MEDS: Tamsulosin HCl 0.4 MG Capsule PO (20:56)
[2023-07-23] VITALS (9 sets, daily range): BP systolic 105–126; BP diastolic 72–83; PULSE 70–82; RESP 12–24; TEMP 36.5–36.6; O2SAT 95–99; BMI 22.6
[2023-07-23] MEDS: Levothyroxine 50 MCG Tablet PO (06:18)
[2023-07-23] MEDS: Sucralfate 1 GM Tablet PO ×2 (06:19→10:10)
[2023-07-23 06:21] LABS: Absolute Lymphocyte Count 0.56 X10^3/uL (0.83-4.51); Absolute Neutrophil Count 10.6 X10^3/uL (2.0-7.7); Basophil# 0.06 X10^3/uL; Basophil% 0.5 % (0-1); Eosinophils% 0.8 % (0-5); Hematocrit 29.6 % (40-54); Lymphocyte # 0.56 X10^3/ul (0.83-4.51); Lymphocyte % 4.5 % (19-41); Mean Corp Hgb Conc 30.4 g/dL (32-36); Mean Corpuscular Hgb 31.4 pg (27.0-32.0); Mean Corpuscular Volume 103.1 fL (80-94); Mean Platelet Vol. 9.7 fl (6.2-12.0); Monocyte# 0.99 X10^3/uL; NRBC Flagged by Analyzer 0.3 % (0-5); Neutrophil # 10.58 X10^3/uL (2.7-7.7); Neutrophil % 85.5 % (47-70); POSITIVE DIFFERENTIAL YES; POSITIVE MORPHOLOGY YES; Platelet Count 331 K/mm3 (150-450); RBC Distribution Width CV 21.7 % (11.6-14.6); RBC Distribution Width SD 81.4 fl (35.1-43.9); Red Blood Count 2.87 M/mm3 (4.6-6.2); White Blood Count 12.4 K/mm3 (4.4-11.0)
[2023-07-23 06:28] LABS: Differential Indicated SCAN CRITERIA MET
[2023-07-23 06:31] LABS: International Normalized Ratio 3.4; Prothrombin Time (Protime)PT. 34.7 SECONDS (11.7-14.9)
[2023-07-23 06:43] LABS: Anisocytosis 1+; Differential Comment SCANNED
[2023-07-23 06:47] LABS: Anion Gap 7 (5-15); BUN 48 mg/dL (7-18); BUN/Creat Ratio 18.1 RATIO (10-20); Calcium,Total 8.2 mg/dL (8.5-10.1); Chloride 111 mmol/L (98-107); Creatinine, Serum 2.65 mg/dL (0.70-1.30); EST Glomerular Filtration Rate 25 mL/min (>60); Est Glom Filt Rate - Afr Amer 30 mL/min (>60); Estimated Creatinine Clearance 20.49 ml/min; Glucose 98 mg/dL (74-106); Potassium 4.1 mmol/L (3.5-5.1); Sodium Level 143 mmol/L (136-145)
[2023-07-23] MEDS: Albuterol 2.5 MG/3 ML VIAL.NEB. INHALATION (07:22)
--- NOTE | 2023-07-23 08:30 | PCM.PN.INT ---
Assessment & Plan Assessment/Plan (1) Combined systolic and diastolic congestive heart failure: QUALIFIERS: Heart failure chronicity: acute on chronic Qualified Code(s): I50.43 - Acute on chronic combined systolic (congestive) and diastolic (congestive) heart failure (2) Pulmonary hypertension: (3) Atrial flutter: QUALIFIERS: Atrial flutter type: typical Qualified Code(s): I48.3 - Typical atrial flutter (4) Hypoxia: (5) Secondary pulmonary arterial hypertension: PLAN: Plan RECOMMENDATIONS: 1. Continue cardiac optimization per cardiology 2. Wean oxygen as tolerated 3. Monitor clinically off antibiotics 4. Consider right heart cath as an outpatient 5. Walking oximetry prior to discharge 6. Continue empiric BiPAP with sleep and rescue IMPRESSIONS: 1. Acute hypoxic respiratory insufficiency secondary to acute on chronic combined CHF/A-fib with RVR Cardiology working on optimizing. Patient is benefiting from improved rate control. Patient does have elevated pulmonary artery pressures, but this is difficult to interpret in the setting of volume overload. Patient is on diuretics at this time at lower dose. Low clinical suspicion for pneumonia despite elevated white blood cell count. White count has remained stable off of antibiotics. Patient did have a normal pulmonary function test just a year ago secondary to amiodarone. Given inability to diurese secondary to renal function, will continue empiric BiPAP to help with sleep and rescue during the day. It is not clear that this will be necessary on discharge. 2. Pulmonary hypertension Clinical suspicion for type II pulmonary hypertension. Elevated pulmonary pressures in the setting of volume overload are very difficult to interpret. Patient would benefit from volume optimization and a right heart catheterization to evaluate pulmonary pressures prior to initiation of any vasoactive medications. Empiric BiPAP appears to be helping with overnight oxygen issues. 3. Chronic kidney disease stage IIIb Slightly improved. Patient does have an elevated creatinine at this time. Patient has been receiving diuretics. Diuretics were decreased secondary to renal function. No indication for renal replacement therapy at this time, but this does complicate diuretic approach. I's and O's have been an accurate, so the use of daily weights will be necessary. 4. Advanced age/CAD/protracted hospitalization/hyperlipidemia/history of GI bleed/osteoporosis/debility Complicates care, management, recovery and prognosis. Okay to continue with current medications. INR is therapeutic, but patient is not showing any signs or symptoms of GI bleed at this time. Occult stool blood is negative. Subjective Subjective Patient sitting in the chair eating breakfast during my evaluation. Patient felt that he was able to get to the chair easier today. Patient did wear BiPAP overnight and found this helpful. No bleeding has been reported. Objective Data Objective Data Vital Signs: Vital Signs Temp Pulse Resp BP Pulse Ox O2 Del Method O2 Flow Rate 36.6 C 72 18 126/83 H 98 CPAP 2 07/23/23 03:22 07/23/23 05:50 07/23/23 05:50 07/23/23 03:22 07/23/23 05:50 07/23/23 03:22 07/22/23 20:50 FiO2 30 07/23/23 05:50 Oxygen Flow Rate (L/min) 2 Oxygen Delivery Method CPAP Weight: 67.4 kg Body Mass Index (BMI) 22.6 Intake & Output: Intake and Output for Last 24 Hours 07/21/23 07/22/23 07/23/23 23:59 23:59 23:59 Intake Total 1020 / 1020 901 / 901 Output Total 1500 / 1500 700 / 700 150 / 150 Balance -480 / -480 201 / 201 -150 / -150 Lab / Micro Data Attestation: I reviewed the patient's lab results. 07/23/23 05:55 07/23/23 05:55 Labs: Laboratory Results - last 24 hr 07/22/23 05:20: Vitamin B12 1097 H 07/22/23 08:41: Blood Type B POSITIVE, Antibody Screen NEGATIVE, Crossmatch See Detail 07/22/23 10:49: POC Glucose 150 H 07/23/23 05:55: WBC 12.4 H, RBC 2.87 L, Hgb 9.0 L, Hct 29.6 L, MCV 103.1 H, MCH 31.4, MCHC 30.4 L, RDW Std Deviation 81.4 H, RDW Coeff of Pablo 21.7 H, Plt Count 331, MPV 9.7, Immature Gran % (Auto) 0.700, Neut % (Auto) 85.5 H, Lymph % (Auto) 4.5 L, [place] % (Auto) 8.0, Eos % (Auto) 0.8, Baso % (Auto) 0.5, Absolute Neuts (auto) 10.6 H, Absolute Lymphs (auto) 0.56 L, Nucleated RBC % 0.3, Differential Comment SCANNED, Anisocytosis 1+, PT 34.7 H, INR 3.4, Sodium 143, Potassium 4.1, Chloride 111 H, Carbon Dioxide 25.0, Anion Gap 7, BUN 48 H, Creatinine 2.65 H, Estim Creat Clear Calc 20.49, Est GFR (MDRD) Af Amer 30 L, Est GFR (MDRD) Non-Af 25 L, BUN/Creatinine Ratio 18.1, Glucose 98, Calcium 8.2 L Micro: Microbiology 07/22/23 18:13 Stool Stool Occult Blood (AUBREE) - Final 07/18/23 21:45 Blood Culture (Wb) - Arm Right Blood Culture - Preliminary No growth in 48 hours. 07/18/23 21:36 Blood Culture (Wb) - Anticubital Left Blood Culture - Preliminary No growth in 48 hours. 07/18/23 23:59 Mucosa - Nasopharyngeal Coronavirus COVID-19 PCR - Final 07/18/23 20:02 Nasal Secretion SARS-CoV-2 & FLU Antigen (Rapid) - Final Radiography Diagnostic Testing: Radiology Impression Foot X-Ray 07/22/23 10:00 IMPRESSION: Osteopenia with osteoarthritic changes and diffuse soft tissue swelling. No other abnormality. Electronically Signed: Ang Bauer MD at 10:43 EST , Rhythm Strip Rhythm Strip: A-fib Rate: 72 Physical Exam Const alert, oriented x3, no apparent distress and average body habitus Constitutional Narrative: No conversational dyspnea noted. Comfortably eating breakfast General Appearance: cooperative, well kempt and well developed HEENT normocephalic, head/scalp atraumatic and moist oral mucous membranes Eyes PERRL, EOMs intact bilaterally and conjunctivae normal Neck supple, no JVD, thyroid normal and no carotid bruits General: trachea midline Chest inspection of chest normal Resp normal respiratory effort, no retractions and no use of accessory muscles Auscultation: rales bilateral (Improving) base; Negative for rhonchi or wheezes Percussion: Negative for dullness Cardio regular rate, S1 normal heart sound, S2 normal heart sound, no murmurs, no rub and no gallops Rate: tachycardic Rhythm: abnormal rhythm irregularly irregular Heart Sounds: murmur systolic II/ crescendo-decrescendo mid GI normal to inspection, nondistended, normoactive bowel sounds, soft to palpation, non-tender and non-distended Extremity General Extremity: Negative for clubbing or edema Skin no rashes or lesions noted General Skin Exam: no breakdown Neuro oriented x3, CN's II-XII intact bilaterally, moves all extremities, no focal motor deficits and no sensory deficits noted Speech: speech normal Psych affect normal Charges/Coding Visit Charges Inpatient E&M: 49538 Subs Hosp L2
[2023-07-23] MEDS: Famotidine 20 MG Tablet PO (10:09)
[2023-07-23] MEDS: Amiodarone 200 MG Tablet PO (10:09)
[2023-07-23] MEDS: Vitamin B Comp W-C Capsule 1 CAP PO (10:09)
[2023-07-23] MEDS: Cholecalciferol (VIT D3) 25 MCG TABLET (1,000 UNITS) PO (10:10)
[2023-07-23] MEDS: Finasteride 5 MG Tablet PO (10:10)
[2023-07-23] MEDS: hydrALAZINE 50 MG Tablet PO (10:10)
[2023-07-23] MEDS: Isosorbide DN 10 MG Tablet 5 MG PO (10:11)
[2023-07-23] MEDS: Ascorbic Acid 500 MG Tablet PO (10:11)
[2023-07-23] MEDS: Lactulose 20 GM/30 ML UDC 10 GM PO (10:12)
[2023-07-23] MEDS: Potassium Chloride Oral Tablet 20 MEQ PO (10:12)
[2023-07-23] MEDS: Empagliflozin 10 MG Tablet PO (10:12)
[2023-07-23] MEDS: Metoprolol Tartrate 100 MG Tablet PO (10:13)
[2023-07-23] MEDS: Furosemide 40 MG Tablet PO (10:13)
[2023-07-23] MEDS: Magnesium Chloride 64 MG Delay Rel.Tablet 128 MG PO (10:23)
--- NOTE | 2023-07-23 10:54 | NURSING ---
Report called to nurse Ritter for pt to be d/c to TCU.
== END 2023-07-23 11:27 | DRG 264 ==
LOC: ED 22:00 → PCU 22:26
PROVIDERS: Internal Medicine; Nurse Practitioner; Admitting Provider Internal Medicine; Emergency Provider Emergency Medicine; PCP Family Medicine; Visit Provider Internal Medicine
DX: I13.0 Hypertensive heart and chronic kidney disease with heart failure and stage 1 through stage 4 chronic kidney disease, or unspecified chronic kidney disease (principal); I50.43 Acute on chronic combined systolic (congestive) and diastolic (congestive) heart failure; I96 Gangrene, not elsewhere classified; D68.9 Coagulation defect, unspecified; I48.3 Typical atrial flutter; I48.20 Chronic atrial fibrillation, unspecified; I27.20 Pulmonary hypertension, unspecified; I73.9 Peripheral vascular disease, unspecified; N18.32 Chronic kidney disease, stage 3b; L97.524 Non-pressure chronic ulcer of other part of left foot with necrosis of bone; E03.9 Hypothyroidism, unspecified; I08.1 Rheumatic disorders of both mitral and tricuspid valves; I25.10 Atherosclerotic heart disease of native coronary artery without angina pectoris; M19.90 Unspecified osteoarthritis, unspecified site; E78.5 Hyperlipidemia, unspecified; M54.50 Low back pain, unspecified; K21.9 Gastro-esophageal reflux disease without esophagitis; K44.9 Diaphragmatic hernia without obstruction or gangrene; K22.2 Esophageal obstruction; M20.42 Other hammer toe(s) (acquired), left foot; R53.81 Other malaise; Z95.5 Presence of coronary angioplasty implant and graft; Y95 Nosocomial condition; R09.02 Hypoxemia; N40.0 Benign prostatic hyperplasia without lower urinary tract symptoms; M81.0 Age-related osteoporosis without current pathological fracture; Z79.01 Long term (current) use of anticoagulants
CPT/HCPCS: 36415; 71045; 73630; 80048; 80053; 81001; 81002; 82274; 82607; 82962; 83540; 83550; 83605; 83735; 83880; 84100; 84443; 84484; 85025; 85610; 86850; 86900; 86901; 86920; 87040; 87428; 87635; 88305; 88313; 88341; 88342; 93005; 93306; 93923; 94002; 94003; 94640; 94668; 94762; 99285; J7040; J7050; J7120; P9016; Q9957; A4216; J1940; J2405

== ENCOUNTER 2023-07-23 11:36 | Inpatient (IN) | payer MEDICARE, OTHER, SELFPAY ==
[2023-07-23 11:41] VITALS: BP 102/73; PULSE 72; PULSE 80; RESP 16; TEMP 36.2; O2SAT 93; BMI 22.9
--- NOTE | 2023-07-23 14:39 | HP.PCM_ITS ---
HPI - General General Date of Admission: 07/23/23 Date of Service: 07/25/23 Chief Complaint: Here for rehabilitation. HPI Narrative 07/18/2023 RICHIE HANSEN, is a 83 Male TCU resident who presents to [facility] ED with palpitations. Weakness, shortness of breath, tachycardia. WBC 13.7, Hemoglobin 8.8, INR 1.8. Creatinine 2.24, BNP 2664. Chest X-ray shows pneumonia, blood cultures sent. Vancomycin, Zosyn, Lasix given. 07/18/2023 Admit to Hospital. IV Lasix, Serial BNP, Serial Chest X-ray, Echo for acute on chronic heart failure reduced ejection fraction. Vancomycin, Zosyn for pneumonia. 07/18/2023 Echo Moderate concentric LVH. Moderate severe global LV systolic dysfunction. EF 35%. Severe mitral valve insufficiency. RVSP 77mm HG. 07/19/2023 Oxygen 5 liters per nasal cannula. Stop Vancomycin, continue Zosyn for pneumonia. IV Lasix for acute on chronic HFrEF. 07/20/2023 Feels slightly better. Decrease Lasix to 40mg daily secondary to rising creatinine. Increase Amiodarone to 200mg twice daily for rate control for atrial fibrillation. Add Hydralazine, nitrates for afterload reduction. Stop antibiotics if cultures negative. Wean oxygen as tolerated. consider right heart catheterization as outpatient. 07/21/2023 Pneumonia ruled out. Treat heart failure. 07/22/2023 Patient feels no better than when he admitted to hospital. Transfuse 1 unit PRBC. 07/23/2023 Admit to TCU with debility, here for rehabilitation, strengthening, prior to disposition determination. [facility] Medical History Acute constipation Acute exacerbation of chronic low back pain Acute gastrointestinal bleeding Acute kidney injury superimposed on chronic kidney disease Ambulates with cane Anemia Anxiety Arthritis Atherosclerotic heart disease of [place] coronary artery without angina pectoris Atrial fibrillation Atypical atrial flutter (12/2020) Back pain Benign prostatic hyperplasia BPH (benign prostatic hyperplasia) Cancer Cardiology follow-up encounter Chronic anemia Chronic heart failure with preserved ejection fraction (HFpEF) Chronic kidney disease Chronic pain Chronic renal insufficiency Colitis COPD (chronic obstructive pulmonary disease) CPAP (continuous positive airway pressure) dependence Debility Diarrhea Difficulty chewing Dysphagia Easy bruising Elevated LFTs Elevated liver enzymes Essential (primary) hypertension Excessive bleeding Gastric reflux GI bleed (2013) Hearing loss, left Hearing loss, right Hiatal hernia High cholesterol History of colon polyps History of diverticulitis History of echocardiogram History of edema History of heart attack History of hyperthyroidism History of leukemia History of pain when walking History of renal disease History of stress test HLD (hyperlipidemia) Hypertension Hypothyroidism Irregular heart beat Kidney disease Kidney stones Myocardial infarct Nausea and vomiting Non-rheumatic tricuspid valve insufficiency Non-smoker Nonrheumatic mitral (valve) insufficiency 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 Osteoarthritis Paroxysmal atrial fibrillation Rheumatoid arthritis Secondary pulmonary arterial hypertension Sleep apnea Sleep apnea Stage 3b chronic kidney disease Thoracic aortic aneurysm (TAA) Thyroid disease Wears glasses Home Medications denosumab 60 mg/mL subcutaneous syringe (Prolia) 60 mg SQ .[id number] BONES 12/09/20 [History Last Taken 11/10/22] tamsulosin 0.4 mg capsule 0.4 mg PO QHS bladder 11/18/21 [History Last Taken 06/20/23] levothyroxine 25 mcg tablet 50 mcg PO DAILY thyroid 02/17/22 [History Last Taken 06/21/23] vitamin B complex 1 cap PO BID supplement 05/01/22 [History Last Taken 02/12/23] linaclotide 72 mcg capsule (Linzess) 72 mcg PO DAILY PRN Diarrhea 06/15/22 [His tory Last Taken Unknown] ascorbic acid (vitamin C) 500 mg tablet 500 mg PO DAILY supplement 07/20/22 [History Last Taken 06/21/23] finasteride 5 mg tablet 5 mg PO DAILY prostate 08/05/22 [History Last Taken 06/21/23] cholecalciferol (vitamin D3) 25 mcg (1,000 unit) capsule (Vitamin D3) 1,000 unit PO DAILY supplement 02/19/23 [History Last Taken Unknown] polyethylene glycol 3350 17 gram oral powder packet 17 g PO DAILY constipation 02/19/23 [History Last Taken Unknown] amiodarone 100 mg tablet 100 mg PO BID heart 02/21/23 [History Last Taken 06/21/23] sucralfate 1 gram tablet 1 g PO TID@0700,1100,1600 stomach 30 days #90 tabs 03/21/23 [Rx Last Taken 06/21/23] famotidine 40 mg tablet 40 mg PO DAILY stomach #30 tabs 04/11/23 [Rx Last Taken Unknown] lactulose 10 gram/15 mL oral solution 10 g (15 mL) PO DAILY constipation 30 days #450 mL 05/18/23 [Rx Last Taken Unknown] loratadine 10 mg tablet (Claritin) 10 mg PO DAILY allergies 06/16/23 [History Last Taken Unknown] warfarin 3 mg tablet (Jantoven) 3 mg PO SuTuThSa@1700 blood thinner #0 tabs 06/21/23 [Rx Last Taken 06/19/23] warfarin 4 mg tablet See Rx Instructions .Route .COMPLEX blood thinner #60 tabs 06/21/23 [Rx Last Taken 06/20/23] furosemide 40 mg tablet 40 mg PO DAILY Swelling 30 days #30 tabs 07/06/23 [Rx Last Taken Unknown] metoprolol tartrate 25 mg tablet 25 mg PO BID BP #0 tabs 07/06/23 [Rx Last Taken Unknown] acetaminophen 500 mg tablet 1,000 mg PO Q8 PRN pain 07/19/23 [History Last Taken Unknown] acidophilus 25 million cell-pectin, citrus 100 mg tablet 2 tab PO BID Probiotic #0 tabs 07/22/23 [Rx Last Taken Unknown] albuterol sulfate 2.5 mg/3 mL (0.083 %) solution for nebulization 2.5 mg (3 mL) inhalation Q6HWA.RT Shortness of Breath #0 mL 07/22/23 [Rx Last Taken Unknown] empagliflozin 10 mg tablet (Jardiance) 10 mg PO DAILY Diabetes #0 tabs 07/22/23 [Rx Last Taken Unknown] hydralazine 50 mg tablet 50 mg PO 4X/DAY BP #0 tabs 07/22/23 [Rx Last Taken Unknown] isosorbide dinitrate 10 mg tablet 5 mg (1/2 x 10 mg) PO BID BP #0 tabs 07/22/23 [Rx Last Taken Unknown] magnesium chloride 64 mg (magnesium chloride) tablet,delayed release (Mag 64) 128 mg (2 x 64 mg) PO BID Supplement #0 tabs 07/22/23 [Rx Last Taken Unknown] melatonin 3 mg tablet 3 mg PO QHS PRN PRN Insomnia #0 tabs 07/22/23 [Rx Last Taken Unknown] nitroglycerin 0.4 mg sublingual tablet 0.4 mg sublingual Q5M PRN Cardiac/Chest Pain #0 tabs 07/22/23 [Rx Last Taken Unknown] potassium chloride 20 mEq tablet,extended release(part/cryst) (Klor-Con M) 20 meq PO BID Supplement #0 tabs 07/22/23 [Rx Last Taken Unknown] promethazine 25 mg/mL injection solution 25 mg IM Q6H PRN PRN Breakthrough nausea/vomiting #0 mL 07/22/23 [Rx Last Taken Unknown] Allergy/AdvReac Type Severity Reaction Status Date / Time diclofenac Allergy rash Verified 07/15/23 14:49 prednisone Allergy Rash Verified 07/15/23 14:49 Family History Father Cancer Prostate cancer Mother Hypertension Sister Hypertension Surgical History History of back surgery History of back surgery History of cardiac catheterization History of cardioversion (06/18/19) History of coronary artery stent placement (08/04/00) History of electrophysiologic study (08/08/00) History of esophagogastroduodenoscopy (EGD) History of hemorrhoidectomy History of hernia repair History of left heart catheterization (07/17/12) History of Zenaida fundoplication History of radiofrequency ablation procedure for cardiac arrhythmia (11/11/11) Social History household members: none Smoking Status: Never smoker alcohol intake: never substance use type: does not use caffeine: No ROS Constitutional Constitutional: Denies chills, fever(s) or weight gain ENT HEENT: Denies headache(s), nasal congestion or nasal discharge Cardiovascular Cardiovascular: Denies chest pain or palpitations Respiratory/Chest Respiratory/Chest: Denies cough, excessive phlegm production or shortness of breath with exertion Gastrointestinal Gastrointestinal: Denies abdominal pain, nausea or vomiting Genitourinary Genitourinary: Denies dysuria Musculoskeletal Musculoskeletal: Denies joint pain or joint swelling Integumentary Integumentary: Denies rash or wounds Neurologic Neurologic: Denies focal weakness, numbness or tingling Psychiatric Psychiatric: Denies anxiety, auditory hallucinations, depression, homicidal ideation or suicidal ideation Vital Signs Vital Signs Vital Signs: 07/23/23 11:41 07/23/23 11:41 Temperature 97.2 F L Temperature Source Temporal Pulse Rate 80 72 Pulse Rhythm Irregular Pulse Strength Normal (2+) Respiratory Rate 16 16 Respiratory Effort Normal Non-Labored Respiratory Pattern Normal Blood Pressure 102/73 Blood Pressure Mean 82 Blood Pressure Source Monitor Blood Pressure Position Sitting Blood Pressure Location Right Arm Pulse Ox 93 Oxygen Delivery Method Nasal Cannula Nasal Cannula Oxygen Flow Rate (L/min) 2 2 Weight Weight: 68.5 kg Body Mass Index (BMI) 22.9 Physical Exam Const alert General Appearance: cooperative HEENT normocephalic Eyes PERRL and EOMs intact bilaterally Neck supple, no JVD and no carotid bruits Resp normal respiratory effort and normal air movement Auscultation: rhonchi throughout Cardio regular rate and regular rhythm GI normal to inspection, nondistended, normoactive bowel sounds, non-tender and non-distended Extremity normal capillary refill General Extremity: Negative for edema Skin no rashes or lesions noted General Skin Exam: no breakdown Psych affect normal Appearance: appropriate Results Lab / Micro Data 07/25/23 05:20 07/25/23 05:20 Assessment & Plan Assessment/Plan (1) Debility: (2) Healthcare-associated pneumonia: (3) Acute on chronic heart failure with reduced ejection fraction and diastolic dysfunction: (4) Atrial fibrillation: (5) GERD (gastroesophageal reflux disease): (6) BPH (benign prostatic hyperplasia): (7) Hypothyroidism: (8) Allergic rhinitis: PLAN: Plan 83 year old male with below past medical history hospitalized for 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 * Debility - PT/OT. * Pain - Tylenol 1000mg q6 prn pain (1-10). * Bowel - Miralax 17gm daily, Lactulose 10gm daily. * Adult immunization - Administer pneumonia vaccine, covid vaccine, flu vaccine as appropriate. * DVT prophylaxis - on warfarin. * Shortness of breath - Albuterol 2.5mg neb q6hwa.rt. * Atrial fibrillation - Metoprolol 25mg bid, Amiodarone 100mg bid, warfarin 3mg/4mg alternating, INR 4.0, hold warfarin, monitor INR. * Vitamin C deficiency - Vitamin C 500mg daily. * Vitamin D deficiency - D3 25mcg daily. * Acute on chronic HFrEF - Metoprolol 25mg bid, Hydralazine 50mg 4x/day, Isosorbide 5mg bid, Jardiance 10mg daily, Furosemide 40mg daily. * GERD - Famotidine 40mg daily, Sucralfate 1gm tid. * BPH - Finasteride 5mg daily, Tamsulosin 0.4mg qhs. * GI prophylaxis - Lactobacillus 2 tablets bid. * Hypothyroidism - Levothyroxine 50mcg daily. * Allergic rhinitis - Loratadine 10mg daily. * Hypomagnesemia - Magnesium chloride 128mg bid. * Insomnia - Melatonin 3mg qhs prn. * Coronary artery disease - Metoprolol 25mg bid, Isosorbice 5mg bid, NTG 0.4mg q5m prn chest pain. * Hypokalemia - KCL 20meq bidcm. * Nausea - Phenergan 25mg im q6 prn. * Leg Cramps - Vitamin B complex 1 cap bid.
[2023-07-23 17:14] VITALS: BP 110/85; PULSE 65
[2023-07-23] MEDS: Potassium Chloride Oral Tablet 20 MEQ PO (17:14)
[2023-07-23] MEDS: hydrALAZINE 50 MG Tablet PO ×2 (17:14→22:16)
[2023-07-23] MEDS: Sucralfate 1 GM Tablet PO (17:18)
[2023-07-23] MEDS: Magnesium Chloride 64 MG Delay Rel.Tablet 128 MG PO (22:14)
[2023-07-23] MEDS: Tamsulosin HCl 0.4 MG Capsule PO (22:15)
[2023-07-23] MEDS: Amiodarone 200 MG Tablet 100 MG PO (22:15)
[2023-07-23 22:16] VITALS: BP 112/68; PULSE 89
[2023-07-23] MEDS: Vitamin B Comp W-C Capsule 1 CAP PO (22:16)
[2023-07-23 22:17] VITALS: BP 112/68; PULSE 89
[2023-07-23] MEDS: Metoprolol Tartrate 25 MG Tablet PO (22:17)
[2023-07-23] MEDS: Isosorbide DN 10 MG Tablet 5 MG PO (22:18)
[2023-07-24] VITALS (11 sets, daily range): BP systolic 109–133; BP diastolic 73–90; PULSE 67–94; RESP 16–26; TEMP 36.3; O2SAT 90–98; BMI 22.4
[2023-07-24] MEDS: Albuterol 2.5 MG/3 ML VIAL.NEB. INHALATION ×2 (04:33→18:55)
[2023-07-24] MEDS: Sucralfate 1 GM Tablet PO ×3 (06:05→16:56)
[2023-07-24] MEDS: hydrALAZINE 50 MG Tablet PO ×4 (06:05→21:38)
[2023-07-24 06:09] LABS: Absolute Lymphocyte Count 0.64 X10^3/uL (0.83-4.51); Absolute Neutrophil Count 13.1 X10^3/uL (2.0-7.7); Basophil# 0.04 X10^3/uL; Basophil% 0.3 % (0-1); Eosinophil# 0.09 X10^3/uL; Eosinophils% 0.6 % (0-5); Hematocrit 30.3 % (40-54); Hemoglobin 9.2 g/dL (13.0-16.5); Lymphocyte # 0.64 X10^3/ul (0.83-4.51); Lymphocyte % 4.2 % (19-41); Mean Corp Hgb Conc 30.4 g/dL (32-36); Mean Corpuscular Hgb 31.6 pg (27.0-32.0); Mean Corpuscular Volume 104.1 fL (80-94); Monocyte# 1.11 X10^3/uL; Monocyte% 7.3 % (0-10); NRBC Flagged by Analyzer 0.2 % (0-5); Neutrophil # 13.12 X10^3/uL (2.7-7.7); Neutrophil % 86.6 % (47-70); POSITIVE MORPHOLOGY YES; Platelet Count 361 K/mm3 (150-450); RBC Distribution Width CV 21.2 % (11.6-14.6); Red Blood Count 2.91 M/mm3 (4.6-6.2); White Blood Count 15.2 K/mm3 (4.4-11.0)
[2023-07-24 06:17] LABS: Differential Indicated SCAN CRITERIA MET
[2023-07-24 06:22] LABS: International Normalized Ratio 3.7; Prothrombin Time (Protime)PT. 37.5 SECONDS (11.7-14.9)
[2023-07-24 06:25] LABS: Anion Gap 8 (5-15); BUN 55 mg/dL (7-18); BUN/Creat Ratio 18.7 RATIO (10-20); Calcium,Total 8.4 mg/dL (8.5-10.1); Chloride 112 mmol/L (98-107); Creatinine, Serum 2.94 mg/dL (0.70-1.30); EST Glomerular Filtration Rate 22 mL/min (>60); Est Glom Filt Rate - Afr Amer 27 mL/min (>60); Estimated Creatinine Clearance 18.43 ml/min; Glucose 104 mg/dL (74-106); Potassium 4.5 mmol/L (3.5-5.1); Sodium Level 143 mmol/L (136-145)
[2023-07-24 06:26] LABS: Anisocytosis 2+; Differential Comment SCANNED; Macrocytosis 1+
[2023-07-24 06:27] LABS: Polychromasia 1+; Target Cells RARE
[2023-07-24] MEDS: Magnesium Chloride 64 MG Delay Rel.Tablet 128 MG PO ×2 (10:21→21:43)
[2023-07-24] MEDS: Lactulose 20 GM/30 ML UDC 10 GM PO (10:21)
[2023-07-24] MEDS: Empagliflozin 10 MG Tablet PO (10:22)
[2023-07-24] MEDS: Ascorbic Acid 500 MG Tablet PO (10:22)
[2023-07-24] MEDS: Finasteride 5 MG Tablet PO (10:22)
[2023-07-24] MEDS: Furosemide 40 MG Tablet PO (10:24)
[2023-07-24] MEDS: Potassium Chloride Oral Tablet 20 MEQ PO ×2 (10:24→16:57)
[2023-07-24] MEDS: Cholecalciferol (VIT D3) 25 MCG TABLET (1,000 UNITS) PO (10:25)
[2023-07-24] MEDS: Levothyroxine 50 MCG Tablet PO (10:25)
[2023-07-24] MEDS: Polyethylene Glycol 3350 17 GM PACKET PO (10:25)
[2023-07-24] MEDS: Vitamin B Comp W-C Capsule 1 CAP PO ×2 (10:25→21:42)
[2023-07-24] MEDS: Famotidine 20 MG Tablet 40 MG PO (10:25)
[2023-07-24] MEDS: Isosorbide DN 10 MG Tablet 5 MG PO ×2 (10:26→21:42)
[2023-07-24] MEDS: Amiodarone 200 MG Tablet 100 MG PO ×2 (10:27→21:41)
[2023-07-24] MEDS: Metoprolol Tartrate 25 MG Tablet PO ×2 (10:34→21:43)
[2023-07-24] MEDS: Loratadine 10 MG Tablet PO (10:36)
[2023-07-24] MEDS: Tuberculin,Purif.prot.deriv. 50 TU/ML Vial 0.1 ML ID (10:51)
--- NOTE | 2023-07-24 12:56 | NURSING ---
Pt having increased Anxiety/restlessness. Dr. Samuel updated N.O. for Ativan 0.5mg PRN q6hrs order read back.
--- NOTE | 2023-07-24 19:57 | NURSING ---
Call placed to family to update them on a patient testing positive for Covid on unit.
[2023-07-24] MEDS: Tamsulosin HCl 0.4 MG Capsule PO (21:42)
[2023-07-24] MEDS: LORazepam 0.5 MG Tablet PO (21:42)
[2023-07-25] VITALS (10 sets, daily range): BP systolic 113–122; BP diastolic 75–79; PULSE 73–91; RESP 18–22; TEMP 35.8; O2SAT 94–97; BMI 22.6
[2023-07-25] MEDS: Sucralfate 1 GM Tablet PO ×3 (05:29→16:11)
[2023-07-25] MEDS: hydrALAZINE 50 MG Tablet PO ×4 (05:29→23:09)
[2023-07-25] MEDS: Levothyroxine 50 MCG Tablet PO (05:31)
[2023-07-25 05:43] LABS: Absolute Lymphocyte Count 0.58 X10^3/uL (0.83-4.51); Absolute Neutrophil Count 11.9 X10^3/uL (2.0-7.7); Basophil# 0.05 X10^3/uL; Basophil% 0.4 % (0-1); Eosinophil# 0.13 X10^3/uL; Eosinophils% 0.9 % (0-5); Hematocrit 28.7 % (40-54); Hemoglobin 8.6 g/dL (13.0-16.5); Lymphocyte # 0.58 X10^3/ul (0.83-4.51); Lymphocyte % 4.2 % (19-41); Mean Corpuscular Hgb 31.4 pg (27.0-32.0); Mean Corpuscular Volume 104.7 fL (80-94); Mean Platelet Vol. 9.9 fl (6.2-12.0); Monocyte# 1.09 X10^3/uL; Monocyte% 7.9 % (0-10); NRBC Flagged by Analyzer 0.3 % (0-5); Neutrophil # 11.87 X10^3/uL (2.7-7.7); Neutrophil % 85.8 % (47-70); POSITIVE DIFFERENTIAL YES; POSITIVE MORPHOLOGY YES; Platelet Count 327 K/mm3 (150-450); RBC Distribution Width CV 20.8 % (11.6-14.6); RBC Distribution Width SD 78.8 fl (35.1-43.9); Red Blood Count 2.74 M/mm3 (4.6-6.2); White Blood Count 13.8 K/mm3 (4.4-11.0)
[2023-07-25 05:45] LABS: Differential Indicated SCAN CRITERIA MET
[2023-07-25 05:59] LABS: Prothrombin Time (Protime)PT. 39.7 SECONDS (11.7-14.9)
[2023-07-25 06:04] LABS: Anion Gap 7 (5-15); BUN 61 mg/dL (7-18); BUN/Creat Ratio 20.8 RATIO (10-20); Calcium,Total 8.1 mg/dL (8.5-10.1); Chloride 112 mmol/L (98-107); Creatinine, Serum 2.93 mg/dL (0.70-1.30); EST Glomerular Filtration Rate 22 mL/min (>60); Est Glom Filt Rate - Afr Amer 27 mL/min (>60); Estimated Creatinine Clearance 18.61 ml/min; Glucose 95 mg/dL (74-106); Potassium 4.6 mmol/L (3.5-5.1); Sodium Level 142 mmol/L (136-145)
[2023-07-25 06:15] LABS: Anisocytosis 1+; Differential Comment SCANNED
[2023-07-25] MEDS: Albuterol 2.5 MG/3 ML VIAL.NEB. INHALATION ×2 (07:20→20:12)
--- NOTE | 2023-07-25 07:32 | NS ---
MST score = 2 - UBW not known. Res dislikes spicy foods.
[2023-07-25] MEDS: Furosemide 40 MG Tablet PO (09:32)
[2023-07-25] MEDS: Potassium Chloride Oral Tablet 20 MEQ PO ×2 (09:32→16:12)
[2023-07-25] MEDS: Finasteride 5 MG Tablet PO (09:32)
[2023-07-25] MEDS: Isosorbide DN 10 MG Tablet 5 MG PO ×2 (09:33→23:08)
[2023-07-25] MEDS: Famotidine 20 MG Tablet 40 MG PO (09:33)
[2023-07-25] MEDS: Loratadine 10 MG Tablet PO (09:34)
[2023-07-25] MEDS: Vitamin B Comp W-C Capsule 1 CAP PO ×2 (09:34→23:10)
[2023-07-25] MEDS: Amiodarone 200 MG Tablet 100 MG PO ×2 (09:34→23:09)
[2023-07-25] MEDS: Ascorbic Acid 500 MG Tablet PO (09:35)
[2023-07-25] MEDS: Magnesium Chloride 64 MG Delay Rel.Tablet 128 MG PO ×2 (09:35→23:06)
[2023-07-25] MEDS: Cholecalciferol (VIT D3) 25 MCG TABLET (1,000 UNITS) PO (09:35)
[2023-07-25] MEDS: Metoprolol Tartrate 25 MG Tablet PO ×2 (09:35→23:08)
[2023-07-25] MEDS: Empagliflozin 10 MG Tablet PO (09:36)
--- NOTE | 2023-07-25 09:36 | NURSING ---
Automation Test Developer Note; Activity Asset: Oscar Mcgregor has returned to TCU for continued therapy. He remains independent in his choice of daily in room and group activities. He prefers to stay in his room and read, watch tv, visit with family and friends. He welcomes visit with the basket assembler and therapy dog when available. Staff will remind him of daily activities along with group interaction for social interaction and respect his right to say no.
[2023-07-25] MEDS: Lactulose 20 GM/30 ML UDC 10 GM PO (09:41)
--- NOTE | 2023-07-25 12:31 | NURSING ---
Offered covid vaccine, VIS provided. Patient refuses at this time.
--- NOTE | 2023-07-25 12:50 | NURSING ---
Updated that a patient on the unit tested covid positive. He did not want family notified.
--- NOTE | 2023-07-25 14:53 | PCM.PN.DRR ---
Documented by User: Shireen Marcus 07/25/23 15:40 TCU RX Drug Regimen Review Subjective/Objective Subjective/Objective: Subjective: TCU Admission. 83 YOM presented from TCU to ER with palpitations. Hospitalized for acute on chronic heart failure reduced ejection fraction, complicated by anemia, pneumonia ruled out. Admitted back to TCU with debility for strengthening and rehabilitation. Objective: Allergies diclofenac Allergy (Verified 07/15/23 14:49) rash prednisone Allergy (Verified 07/15/23 14:49) Rash Current Medications Generic Name Dose Route Start Last Admin Trade Name Freq PRN Reason Stop Dose Admin Acetaminophen 1,000 mg 07/23/23 14:57 Acetaminophen 500 Mg Tablet PO Q6H PRN PRN PAIN 1-10 Albuterol Sulfate 2.5 mg 07/23/23 12:15 07/25/23 07:20 Albuterol 2.5 Mg/3 Ml Vial.Neb. INHALATION 2.5 mg Q6HWA.RT ILEANA Administration Amiodarone HCl 100 mg 07/23/23 22:00 07/25/23 09:34 Amiodarone 200 Mg Tablet PO 100 mg BID ILEANA Administration Ascorbic Acid 500 mg 07/24/23 10:00 07/25/23 09:35 Ascorbic Acid 500 Mg Tablet PO 500 mg DAILY ILEANA Administration Cholecalciferol 25 mcg 07/24/23 10:00 07/25/23 09:35 Cholecalciferol (Vit D3) 25 Mcg Tablet (1,000 Units) PO 25 mcg DAILY ILEANA Administration Empagliflozin 10 mg 07/24/23 10:00 07/25/23 09:36 Empagliflozin 10 Mg Tablet PO 10 mg DAILY ILEANA Administration Famotidine 40 mg 07/24/23 10:00 07/25/23 09:33 Famotidine 20 Mg Tablet PO 40 mg DAILY ILEANA Administration Finasteride 5 mg 07/24/23 10:00 07/25/23 09:32 Finasteride 5 Mg Tablet PO 5 mg DAILY ILEANA Administration Furosemide 40 mg 07/24/23 10:00 07/25/23 09:32 Furosemide 40 Mg Tablet PO 40 mg DAILY ILEANA Administration Protocol Hydralazine HCl 50 mg 07/23/23 17:00 07/25/23 11:27 Hydralazine 50 Mg Tablet PO 50 mg 4X/DAY ILEANA Administration Protocol Isosorbide Dinitrate 5 mg 07/23/23 22:00 07/25/23 09:33 Isosorbide Dn 10 Mg Tablet PO 5 mg BID ILEANA Administration Protocol Lactobacillus Acidophilus 2 tablet 07/23/23 22:00 07/25/23 09:36 Lactobacillus Acidophilus PO 2 tablet BID ILEANA Administration Lactulose 10 gm 07/24/23 10:00 07/25/23 09:41 Lactulose 20 Gm/30 Ml Udc PO 10 gm DAILY ILEANA Administration Levothyroxine Sodium 50 mcg 07/24/23 10:00 07/25/23 05:31 Levothyroxine 50 Mcg Tablet PO 50 mcg 0600 ILEANA Administration Loratadine 10 mg 07/24/23 10:00 07/25/23 09:34 Loratadine 10 Mg Tablet PO 10 mg DAILY ILEANA Administration Lorazepam 0.5 mg 07/24/23 12:55 07/24/23 21:42 Lorazepam 0.5 Mg Tablet PO 0.5 mg Q6H PRN PRN Administration ANXIETY/RESTLESSNESS Magnesium Chloride 128 mg 07/23/23 22:00 07/25/23 09:35 Magnesium Chloride 64 Mg Delay Rel.Tablet PO 128 mg BID ILEANA Administration Melatonin 3 mg 07/23/23 12:19 Melatonin 3 Mg Tablet PO QHS PRN PRN Insomnia Metoprolol Tartrate 25 mg 07/23/23 22:00 07/25/23 09:35 Metoprolol Tartrate 25 Mg Tablet PO 25 mg BID ILEANA Administration Protocol Multivitamins 1 cap 07/23/23 22:00 07/25/23 09:34 Vitamin B Comp W-C Capsule PO 1 cap BID ILEANA Administration Nitroglycerin 0.4 mg 07/23/23 13:58 Nitroglycerin (Inpatient Use) 0.4 Mg Tab.Subl SL Q5M PRN CARDIAC/CHEST PAIN Polyethylene Glycol 17 gm 07/24/23 10:00 07/25/23 09:41 Polyethylene Glycol 3350 17 Gm Packet PO Not Given DAILY [facility] Potassium Chloride 20 meq 07/23/23 17:00 07/25/23 09:32 Potassium Chloride Oral Tablet 20 Meq PO 20 meq BIDCM ILEANA Administration Promethazine HCl 25 mg 07/23/23 12:19 Promethazine 25 Mg/Ml Syringe IM Q6H PRN PRN Breakthrough nausea/vomiting Sucralfate 1 gm 07/23/23 16:00 07/25/23 11:28 Sucralfate 1 Gm Tablet PO 1 gm TID@0700,1100,1600 [facility] Administration Tamsulosin HCl 0.4 mg 07/23/23 22:00 07/24/23 21:42 Tamsulosin Hcl 0.4 Mg Capsule PO 0.4 mg QHS [facility] Administration Tuberculin PPD 0.1 ml 07/31/23 10:00 Tuberculin,Purif.Prot.Deriv. 50 Tu/Ml Vial ID 07/31/23 10:01 X1 ONE Warfarin Sodium 3 mg 07/23/23 17:00 07/24/23 16:58 Warfarin 3 Mg Tablet PO 3 mg SuTuThSa@1700 [facility] Administration Warfarin Sodium 0 mg 07/25/23 17:00 Warfarin 4 Mg Tablet PO MoWeFr@1700 [facility] Problem List (Updated 07/23/23 @ 14:[address] Marcus Samuel MD) Acute on chronic heart failure with reduced ejection fraction and diastolic dysfunction (Acute) Healthcare-associated pneumonia (Acute) GERD (gastroesophageal reflux disease) (Acute) Atrial fibrillation (Acute) BPH (benign prostatic hyperplasia) (Acute) Debility (Acute) Allergic rhinitis (Acute) Hypothyroidism (Acute) Vital Signs Temp Pulse Resp BP Pulse Ox O2 Del Method O2 Flow Rate 97.4 F L 80 18 122/79 H 98 Nasal Cannula 4 07/24/23 16:00 07/25/23 11:27 07/25/23 07:20 07/25/23 05:29 07/24/23 16:00 07/24/23 16:00 07/25/23 09:55 Oxygen Flow Rate (L/min) 4 Oxygen Delivery Method Nasal Cannula Weight: 67.699 kg Body Mass Index (BMI) 22.6 Sodium 142 mmol/L (136-145) 07/25/23 05:20 Potassium 4.6 mmol/L (3.5-5.1) 07/25/23 05:20 Chloride 112 mmol/L (98-107) H 07/25/23 05:20 Carbon Dioxide 23.0 mmol/L (21.0-32.0) 07/25/23 05:20 Anion Gap 7 (5-15) 07/25/23 05:20 BUN 61 mg/dL (7-18) H 07/25/23 05:20 Creatinine 2.93 mg/dL (0.70-1.30) H 07/25/23 05:20 Est GFR (MDRD) Af Amer 27 mL/min (>60) L 07/25/23 05:20 Est GFR (MDRD) Non-Af 22 mL/min (>60) L 07/25/23 05:20 BUN/Creatinine Ratio 20.8 RATIO (10-20) H 07/25/23 05:20 Glucose 95 mg/dL (74-106) 07/25/23 05:20 Assessment/Plan: 1. Pain: acetaminophen 1000mg PO Q6H PRN pain 1-10. Resident has not used any PRN doses. Please continue to monitor for increased pain and PRN usage. 2. Bowel: lactulose 10 grams PO daily and polyethylene glycol 17 grams PO daily. Last documented bowel movement was 07/25/23. Please continue to monitor for constipation and diarrhea, abdominal pain, and bowel movements. 3. Atrial fibrillation/CAD/HFrEF: amiodarone 100 mg PO BID, metoprolol 25mg PO BID, hydralazine 50mg PO 4x/day, isosorbide dinitrate 5mg PO BID, nitroglycerin 0.4mg SL Q5M PRN chest pain, empagliflozin 10mg PO daily, furosemide 40mg PO daily, warfarin 4 mg on Tuesday, Tuesday, warfarin 3 mg PO on Tuesday, Tuesday, , Tuesday. Warfarin currently on hold due to INR of 4. Please continue to monitor for s/s that the patient is in atrial fibrillation such as palpitations, potassium (last 4.6mmol/L), chest pain, BP (last 122/79), heart rates (last 80), for s/s of stroke, LFT(last 07/12/23), thyroid function tests (last TSH 07/19/23), renal function, lung function including respirator rate, for s/s of bleeding/excessive bruising, hemoglobin levels (last 8.6g/dL), platelet count (PLT = 327 K/mm3 on 07/25/23), and INR levels (INR = 4 on 07/25/23). No PRN doses of nitroglycerin so far. 4. Hypothyroidism: levothyroxine 50 mcg PO daily. Please continue to monitor for s/s of hypo/hyperthyroidism and thyroid function levels. 5. BPH: finasteride 5 mg PO daily, tamsulosin 0.4 mg PO daily at bedtime. Please continue to monitor for s/s of urinary retention, urinary stream, blood pressures, and for s/s of orthostasis. 6. GERD: famotidine 20 mg PO daily and sucralfate 1 gram PO TID. Famotidine dose changed due to CrCl <50mL. Please continue to monitor for s/s of GERD, renal function (serum creatinine = 2.93 mg/dL with creatinine clearance ~ 18 mL/min on 07/25/23), and for delirium. 7. Vitamin C deficiency/Vitamin D deficiency/hypomagnesemia/hypokalemia: ascorbic acid 500 mg PO daily, cholecalciferol 25 mcg PO daily with a meal, potassium chloride 20mEq PO BIDCM, magnesium chloride 128mg PO BID. Please continue to monitor nutritional status, for s/s fo vitamin C and vitamin D deficiencies, for renal stones, magnesium (last 07/22/23), potassium 4.6mmol/L), vitamin D levels (Vitamin D = 44.2 ng/mL on 03/01/23). 8. Allergic rhinitis: loratadine 10 mg PO daily. Please continue to monitor for s/s of allergic rhinitis. 9. Nausea: promethazine 25 mg IM Q6H PRN breakthrough nausea/vomiting. Resident has not used any PRN doses so far this admission. Please continue to monitor for nausea and PRN medication usage as well as for constipation and headache. 10. Leg cramps: vitamin B complex with vitamin C 1 tablet PO BID. Please continue to monitor for leg cramps. 11. Insomnia: melatonin 3 mg PO QHS PRN insomnia. Please continue to monitor for insomnia and PRN usage. No PRN doses needed so far. 12. Shortness of breath: albuterol 2.5mg inhalation Q6HWA.RT. Please continue to monitor for shortness of breath and HR. 13. GI prophylaxis: lactobacillus 2T PO BID. Please continue to monitor for diarrhea and constipation. Assessment/Plan for indications treated with psychotropic medications: 1. Anxiety/restlessness: lorazepam 0.5mg PO Q6H PRN anxiety/restlessness. GDR not likely appropriate at this time as it is not scheduled and resident has only required 1 dose. Please continue to monitor for anxiety, restlessness, confusion (BEERs) and PRN usage. Medical chart and medication regimen reviewed. The following medication irregularities or issues were identified: None Date Date of Note:: 07/25/23 Documented by User: Dr. Marcus Samuel MD 07/25/23 17:05 TCU RX Drug Regimen Review Provider Comments Provider responsibility Provider Comments to Recommendations by Pharmacy: Agree
--- NOTE | 2023-07-25 16:13 | CASEMGMT ---
Addendum entered by Roya Sarabia 07/26/23 11:16: Referral sent to [facility] via email. Original Note: Social Work Pt readmitted from acute from previous TCU stay. SW educated to pt he used 27/100 days of Medicare benefit. Confirmed plans for DC remains SNF. However, pt stated sister does not want him to go to [facility] and requesting referral to [facility]. SW offered to clarify with sister at POC and await more clinical information prior to sending referral. Pt agreed. SW educated to Drs request for palliative care referral. Briefly explained program. Pt agreeable to referral. SW discussed code status - educated to DNR. Pt unsure he wants to full code, but deferred to discuss with sister at POC. SW agreed to revisit. SW will continue to follow for DC planning. Roya Sarabia, POLICE AND FIRE DISPATCHER ELECTRICIAN SUBSTATION SUPERVISOR
[2023-07-25] MEDS: Tamsulosin HCl 0.4 MG Capsule PO (23:09)
[2023-07-26] VITALS (12 sets, daily range): BP systolic 100–140; BP diastolic 61–92; PULSE 83–96; RESP 16–24; TEMP 36.6; O2SAT 94–96; BMI 22.4
[2023-07-26] MEDS: hydrALAZINE 50 MG Tablet PO ×4 (06:10→21:15)
[2023-07-26] MEDS: Sucralfate 1 GM Tablet PO ×3 (06:10→16:32)
[2023-07-26] MEDS: Levothyroxine 50 MCG Tablet PO (06:10)
[2023-07-26] MEDS: Albuterol 2.5 MG/3 ML VIAL.NEB. INHALATION ×3 (06:35→19:58)
[2023-07-26] MEDS: Potassium Chloride Oral Tablet 20 MEQ PO ×2 (08:53→17:28)
[2023-07-26] MEDS: Lactulose 20 GM/30 ML UDC 10 GM PO (08:54)
[2023-07-26] MEDS: Empagliflozin 10 MG Tablet PO (08:54)
[2023-07-26] MEDS: Vitamin B Comp W-C Capsule 1 CAP PO ×2 (08:54→21:15)
[2023-07-26] MEDS: Ascorbic Acid 500 MG Tablet PO (08:54)
[2023-07-26] MEDS: Finasteride 5 MG Tablet PO (08:55)
[2023-07-26] MEDS: Famotidine 20 MG Tablet PO (08:55)
[2023-07-26] MEDS: Furosemide 40 MG Tablet PO (08:55)
[2023-07-26] MEDS: Magnesium Chloride 64 MG Delay Rel.Tablet 128 MG PO ×2 (08:56→21:14)
[2023-07-26] MEDS: Metoprolol Tartrate 25 MG Tablet PO ×2 (08:56→21:14)
[2023-07-26] MEDS: Cholecalciferol (VIT D3) 25 MCG TABLET (1,000 UNITS) PO (08:56)
[2023-07-26] MEDS: Amiodarone 200 MG Tablet 100 MG PO ×2 (08:57→21:11)
[2023-07-26] MEDS: Isosorbide DN 10 MG Tablet 5 MG PO ×2 (08:57→21:11)
[2023-07-26] MEDS: Loratadine 10 MG Tablet PO (08:58)
--- NOTE | 2023-07-26 11:24 | PCM.CONS.R ---
Assessment & Plan Assessment/Plan (1) Acute kidney injury: (2) Stage 3b chronic kidney disease: PLAN: Plan This is a pleasant 83-year-old male with past medical history significant for COPD, hypertension, heart failure reduced EF, ALVARADO on CPAP, severe pulmonary hypertension, BPH on Flomax, hyperlipidemia and CKD who is currently residing in TCU after recent hospitalizations. Patient is known to our group as he has been followed by Dr. Gudino for CKD management. We have also been seeing patient during these recent hospitalizations for FE on CKD both in hospital setting and TCU. Patient was transferred back to inpatient status on 07/18 as he was evaluated in the ER for shortness of breath, tachycardia, weakness and acute anemia. Initially patient was receiving IV antibiotics for possible pneumonia. Echo showed moderate-severe global LV systolic dysfunction, severe mitral valve insufficiency, EF 35%. Patient was receiving IV Lasix, due to rise in serum creatinine Lasix dose was reduced during his hospitalization, pneumonia ruled out, blood cultures were negative. Patient is now on furosemide 40 mg p.o. daily. Patient did receive PRBC on 07/22. Patient was then admitted back to TCU on 07/23. Patient's hospitalization back mid May 2023 his serum creatinine peaked around 4.33 mg/dL but daily with IV fluids renal function improved, diuretics were on hold. His creatinine leveled off to around 1.6 mg/dL. Patient did not receive any HEADING SAW OPERATOR. Serum creatinine remained near baseline for few weeks. As of recently serum creatinine has begun to rise. On July 21 creatinine was 2.9, July 23 creatinine 2.6 and last 2 days creatinine back to 2.9 mg/dL. Fluctuations in serum creatinine quite possibly secondary to hemodynamics, low blood pressures, and cardiorenal syndrome physiology. Discussed with patient will likely see fluctuating serum creatinine levels given history of heart failure reduced EF, severe pulmonary hypertension and we may need to keep serum creatinine slightly higher than baseline to keep patient volume compensated. If over next few days serum creatinine continues to rise then we will likely need to hold furosemide. I did discuss with patient importance of following fluid restriction. Current blood pressures acceptable. At this time there is no acute indication for HEADING SAW OPERATOR as patient is nonoliguric, no hyperkalemia or acidemia. Overall volume status appears near euvolemic. Last UA negative for blood, 30 protein. Further orders forthcoming as hospitalization evolves, thank you for allowing us to participate in the care of Mr. Hansen. HPI Consult Data Date of Consult: 07/26/23 HPI Narrative HPI Narrative: RICHIE HANSEN, is a 83 M with past medical history significant for COPD, hypertension, heart failure reduced EF, ALVARADO on CPAP, severe pulmonary hypertension, hyperlipidemia and CKD who is currently residing in TCU for therapy after recent hospitalizations. Patient is known to our group as he has been followed by Dr. Gudino for CKD management. Baseline creatinine has been ranging around 1.6 to 1.8 mg/dL prior to these recent hospitalizations. Patient was transferred from TCU back to hospital for evaluation of acute anemia and shortness of breath, diagnosed with acute on chronic CHF, echo from 07/18/2023 demonstrated EF 35% with moderately severe global left ventricular systolic function, severe posterior mitral valve insufficiency, also treated for pneumonia. Patient did receive 1 unit PRBC. Nephrology has been consulted for FE on CKD. Patient reports overall feeling better but still has some shortness of breath. Also complaining of edema to left feet. Denies any recent nausea, vomiting or diarrhea. [facility] Medical History (Updated 07/26/23 @ 11:31 by Claudia Paul, LURDES-C) Acute constipation Acute exacerbation of chronic low back pain Acute gastrointestinal bleeding Acute kidney injury Acute kidney injury superimposed on chronic kidney disease Ambulates with cane Anemia Anxiety Arthritis Atherosclerotic heart disease of [place] coronary artery without angina pectoris Atrial fibrillation Atypical atrial flutter (12/2020) Back pain Benign prostatic hyperplasia BPH (benign prostatic hyperplasia) Cancer Cardiology follow-up encounter Chronic anemia Chronic heart failure with preserved ejection fraction (HFpEF) Chronic kidney disease Chronic pain Chronic renal insufficiency Colitis COPD (chronic obstructive pulmonary disease) CPAP (continuous positive airway pressure) dependence Debility Diarrhea Difficulty chewing Dysphagia Easy bruising Elevated LFTs Elevated liver enzymes Essential (primary) hypertension Excessive bleeding Gastric reflux GI bleed (2012) Hearing loss, left Hearing loss, right Hiatal hernia High cholesterol History of colon polyps History of diverticulitis History of echocardiogram History of edema History of heart attack History of hyperthyroidism History of leukemia History of pain when walking History of renal disease History of stress test HLD (hyperlipidemia) Hypertension Hypothyroidism Irregular heart beat Kidney disease Kidney stones Myocardial infarct Nausea and vomiting Non-rheumatic tricuspid valve insufficiency Non-smoker Nonrheumatic mitral (valve) insufficiency 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 Osteoarthritis Paroxysmal atrial fibrillation Rheumatoid arthritis Secondary pulmonary arterial hypertension Sleep apnea Sleep apnea Stage 3b chronic kidney disease Thoracic aortic aneurysm (TAA) Thyroid disease Wears glasses Home Medications denosumab 60 mg/mL subcutaneous syringe (Prolia) 60 mg SQ .Q3RSLENK BONES 12/09/20 [History Last Taken 11/10/22] tamsulosin 0.4 mg capsule 0.4 mg PO QHS bladder 11/18/21 [History Last Taken 06/20/23] levothyroxine 25 mcg tablet 50 mcg PO DAILY thyroid 02/17/22 [History Last Taken 06/21/23] vitamin B complex 1 cap PO BID supplement 05/01/22 [History Last Taken 02/12/23] linaclotide 72 mcg capsule (Linzess) 72 mcg PO DAILY PRN Diarrhea 06/15/22 [History Last Taken Unknown] ascorbic acid (vitamin C) 500 mg tablet 500 mg PO DAILY supplement 07/20/22 [History Last Taken 06/21/23] finasteride 5 mg tablet 5 mg PO DAILY prostate 08/05/22 [History Last Taken 06/21/23] cholecalciferol (vitamin D3) 25 mcg (1,000 unit) capsule (Vitamin D3) 1,000 unit PO DAILY supplement 02/19/23 [History Last Taken Unknown] polyethylene glycol 3350 17 gram oral powder packet 17 g PO DAILY constipation 02/19/23 [History Last Taken Unknown] amiodarone 100 mg tablet 100 mg PO BID heart 02/21/23 [History Last Taken 06/21/23] sucralfate 1 gram tablet 1 g PO TID@0700,1100,1600 stomach 30 days #90 tabs 03/21/23 [Rx Last Taken 06/21/23] famotidine 40 mg tablet 40 mg PO DAILY stomach #30 tabs 04/11/23 [Rx Last Taken Unknown] lactulose 10 gram/15 mL oral solution 10 g (15 mL) PO DAILY constipation 30 days #450 mL 05/18/23 [Rx Last Taken Unknown] loratadine 10 mg tablet (Claritin) 10 mg PO DAILY allergies 06/16/23 [History Last Taken Unknown] warfarin 3 mg tablet (Jantoven) 3 mg PO SuTuThSa@1700 blood thinner #0 tabs 06/21/23 [Rx Last Taken 06/19/23] warfarin 4 mg tablet See Rx Instructions .Route .COMPLEX blood thinner #60 tabs 06/21/23 [Rx Last Taken 06/20/23] furosemide 40 mg tablet 40 mg PO DAILY Swelling 30 days #30 tabs 07/06/23 [Rx Last Taken Unknown] metoprolol tartrate 25 mg tablet 25 mg PO BID BP #0 tabs 07/06/23 [Rx Last Taken Unknown] acetaminophen 500 mg tablet 1,000 mg PO Q8 PRN pain 07/19/23 [History Last Taken Unknown] acidophilus 25 million cell-pectin, citrus 100 mg tablet 2 tab PO BID Probiotic #0 tabs 07/22/23 [Rx Last Taken Unknown] albuterol sulfate 2.5 mg/3 mL (0.083 %) solution for nebulization 2.5 mg (3 mL) inhalation Q6HWA.RT Shortness of Breath #0 mL 07/22/23 [Rx Last Taken Unknown] empagliflozin 10 mg tablet (Jardiance) 10 mg PO DAILY Diabetes #0 tabs 07/22/23 [Rx Last Taken Unknown] hydralazine 50 mg tablet 50 mg PO 4X/DAY BP #0 tabs 07/22/23 [Rx Last Taken Unknown] isosorbide dinitrate 10 mg tablet 5 mg (1/2 x 10 mg) PO BID BP #0 tabs 07/22/23 [Rx Last Taken Unknown] magnesium chloride 64 mg (magnesium chloride) tablet,delayed release (Mag 64) 128 mg (2 x 64 mg) PO BID Supplement #0 tabs 07/22/23 [Rx Last Taken Unknown] melatonin 3 mg tablet 3 mg PO QHS PRN PRN Insomnia #0 tabs 07/22/23 [Rx Last Taken Unknown] nitroglycerin 0.4 mg sublingual tablet 0.4 mg sublingual Q5M PRN Cardiac/Chest Pain #0 tabs 07/22/23 [Rx Last Taken Unknown] potassium chloride 20 mEq tablet,extended release(part/cryst) (Klor-Con M) 20 meq PO BID Supplement #0 tabs 07/22/23 [Rx Last Taken Unknown] promethazine 25 mg/mL injection solution 25 mg IM Q6H PRN PRN Breakthrough nausea/vomiting #0 mL 07/22/23 [Rx Last Taken Unknown] Allergy/AdvReac Type Severity Reaction Status Date / Time diclofenac Allergy rash Verified 07/15/23 14:49 prednisone Allergy Rash Verified 07/15/23 14:49 Family History Father Cancer Prostate cancer Mother Hypertension Sister Hypertension Surgical History (Updated 07/26/23 @ 00:23 by Background Lorie) History of back surgery History of back surgery History of cardiac catheterization History of cardioversion (06/18/19) History of coronary artery stent placement (08/04/00) History of electrophysiologic study (08/08/00) History of esophagogastroduodenoscopy (EGD) History of hemorrhoidectomy History of hernia repair History of left heart catheterization (07/17/12) History of Zenaida fundoplication History of radiofrequency ablation procedure for cardiac arrhythmia (11/11/11) Social History household members: none Smoking Status: Never smoker alcohol intake: never substance use type: does not use caffeine: No ROS ROS Narrative As in HPI and past medical history Physical Exam Narrative Alert and orient x 3, no apparent distress S1, S2, RRR Lung sounds clear anteriorly and posteriorly. No wheezes, rhonchi or rales noted Abdomen soft, nontender No pitting edema bilateral lower legs. Trace bilateral pedal edema Lab / Micro Data 07/25/23 05:20 07/25/23 05:20 Micro: Microbiology 07/25/23 05:22 Nasal Secretion SARS-CoV-2 Antigen (Rapid) - Final
--- NOTE | 2023-07-26 12:51 | NURSING ---
IN TO SEE PT. SEE NOTES.
--- NOTE | 2023-07-26 14:25 | CASEMGMT ---
Social Work SW confirmed with [facility] pt's Medicaid pending. . NAUN BeckwithW
[2023-07-26] MEDS: Tamsulosin HCl 0.4 MG Capsule PO (21:11)
[2023-07-26] MEDS: LORazepam 0.5 MG Tablet PO (23:17)
[2023-07-27] VITALS (10 sets, daily range): BP systolic 107–125; BP diastolic 64–74; PULSE 71–99; RESP 18–24; TEMP 36.3; O2SAT 92–96; BMI 22.4
[2023-07-27] MEDS: hydrALAZINE 50 MG Tablet PO ×4 (05:53→21:15)
[2023-07-27] MEDS: Levothyroxine 50 MCG Tablet PO (05:53)
[2023-07-27] MEDS: Famotidine 20 MG Tablet PO (08:53)
[2023-07-27] MEDS: Potassium Chloride Oral Tablet 20 MEQ PO ×2 (08:53→17:07)
[2023-07-27] MEDS: Furosemide 40 MG Tablet PO (08:54)
[2023-07-27] MEDS: Metoprolol Tartrate 25 MG Tablet PO ×2 (08:54→21:14)
[2023-07-27] MEDS: Isosorbide DN 10 MG Tablet 5 MG PO ×2 (08:54→21:13)
[2023-07-27] MEDS: Ascorbic Acid 500 MG Tablet PO (08:54)
[2023-07-27] MEDS: Magnesium Chloride 64 MG Delay Rel.Tablet 128 MG PO ×2 (08:55→21:14)
[2023-07-27] MEDS: Finasteride 5 MG Tablet PO (08:55)
[2023-07-27] MEDS: Amiodarone 200 MG Tablet 100 MG PO ×2 (08:56→21:13)
[2023-07-27] MEDS: Cholecalciferol (VIT D3) 25 MCG TABLET (1,000 UNITS) PO (08:56)
[2023-07-27] MEDS: Vitamin B Comp W-C Capsule 1 CAP PO ×2 (08:56→21:15)
[2023-07-27] MEDS: Empagliflozin 10 MG Tablet PO (08:57)
[2023-07-27] MEDS: Loratadine 10 MG Tablet PO (08:57)
[2023-07-27] MEDS: Lactulose 20 GM/30 ML UDC 10 GM PO (08:57)
[2023-07-27 09:23] LABS: International Normalized Ratio 2.8; Prothrombin Time (Protime)PT. 29.8 SECONDS (11.7-14.9)
[2023-07-27] MEDS: Albuterol 2.5 MG/3 ML VIAL.NEB. INHALATION ×3 (09:25→20:20)
--- NOTE | 2023-07-27 10:31 | CASEMGMT ---
Social Work IDT met with patient, sister and MIKE for care plan meeting. Discussed patient's progress in PT/OT/SN. Educated to Medicare benefit. Pt admitted on day and is in copay days. Encouraged to contact secondary insurance to ensure copay coverage; if not covered, it is $200/day. SW explained the palliative care team left with pt to schedule meeting and requested pt or sisters to contact. Requested sister provide copies of advanced directives. Sisters unsure if they have copies. SW offered to complete if needed. SW also inquired about DC plan, if [facility] is the FOC. All in agreement. SW educated to [facility] to pay for SNF but [facility] does not accept [facility] and if the goal is AL, pt will need to get [place] Waiver approved and transfer to appropriate [place] facility. All expressed understanding. SW to place referral to [facility] via [facility]. Will continue to follow. Roya Sarabia, NETWORK CONTROL TECHNICIAN SHEET ROCK APPLIER
[2023-07-27] MEDS: Sucralfate 1 GM Tablet PO ×2 (11:20→16:17)
--- NOTE | 2023-07-27 11:28 | NURSING ---
Pt notifies of new skin issue to arm. Skin tear (approx 2cm long) noted to left forearm. Pt denies pain, states skin tear was caused by (visitor's) dog. Cleansed area with NS, applied two steri-strips. No signs of infection noted at this time. Vitals: bp-125/65, p-86, r-20, sp02-96% on 4L nasal cannula.
--- NOTE | 2023-07-27 14:57 | NURSING ---
Addendum entered by Aye Daniel 07/27/23 15:10: correction: pt left unit @1330. Pt returns to unit @1500, no new orders. follow-up appointment scheduled for 09/01/23 @1330-added to chart. Pt resting in bed with no comments/concerns at this time. Original Note: Staff transports patient off-unit to appointment with Torrey Grace CNP.
--- NOTE | 2023-07-27 15:30 | NURSING ---
Updated patient that staff member tested positive for covid. He did not want family updated.
[2023-07-27] MEDS: Tamsulosin HCl 0.4 MG Capsule PO (21:15)
[2023-07-28] VITALS (13 sets, daily range): BP systolic 100–128; BP diastolic 53–79; PULSE 79–89; RESP 18–26; TEMP 36; O2SAT 93–98; BMI 22.1
[2023-07-28] MEDS: LORazepam 0.5 MG Tablet PO ×2 (00:34→21:03)
[2023-07-28] MEDS: MELATONIN 3 MG TABLET PO ×2 (00:35→21:03)
[2023-07-28] MEDS: Levothyroxine 50 MCG Tablet PO (05:22)
[2023-07-28] MEDS: hydrALAZINE 50 MG Tablet PO ×4 (05:22→21:04)
[2023-07-28 06:15] LABS: Prothrombin Time (Protime)PT. 22.6 SECONDS (11.7-14.9)
[2023-07-28 06:19] LABS: Albumin, Serum 2.6 g/dL (3.2-5.0); BUN 56 mg/dL (7-18); BUN/Creat Ratio 21.4 RATIO (10-20); Calcium,Total 7.9 mg/dL (8.5-10.1); Chloride 110 mmol/L (98-107); Creatinine, Serum 2.62 mg/dL (0.70-1.30); EST Glomerular Filtration Rate 25 mL/min (>60); Est Glom Filt Rate - Afr Amer 30 mL/min (>60); Estimated Creatinine Clearance 20.26 ml/min; Glucose 89 mg/dL (74-106); Phosphorus 3.6 mg/dL (2.5-4.9); Sodium Level 144 mmol/L (136-145)
[2023-07-28] MEDS: Sucralfate 1 GM Tablet PO ×3 (06:47→16:46)
[2023-07-28] MEDS: Albuterol 2.5 MG/3 ML VIAL.NEB. INHALATION ×3 (07:31→19:35)
[2023-07-28] MEDS: Lactulose 20 GM/30 ML UDC 10 GM PO (09:16)
[2023-07-28] MEDS: Ascorbic Acid 500 MG Tablet PO (09:17)
[2023-07-28] MEDS: Famotidine 20 MG Tablet PO (09:17)
[2023-07-28] MEDS: Isosorbide DN 10 MG Tablet 5 MG PO ×2 (09:18→21:05)
[2023-07-28] MEDS: Furosemide 40 MG Tablet PO ×2 (09:18→17:50)
[2023-07-28] MEDS: Loratadine 10 MG Tablet PO (09:18)
[2023-07-28] MEDS: Vitamin B Comp W-C Capsule 1 CAP PO ×2 (09:18→21:05)
[2023-07-28] MEDS: Magnesium Chloride 64 MG Delay Rel.Tablet 128 MG PO ×2 (09:18→21:06)
[2023-07-28] MEDS: Metoprolol Tartrate 25 MG Tablet PO ×2 (09:19→21:03)
[2023-07-28] MEDS: Cholecalciferol (VIT D3) 25 MCG TABLET (1,000 UNITS) PO (09:19)
[2023-07-28] MEDS: Amiodarone 200 MG Tablet 100 MG PO ×2 (09:20→21:05)
[2023-07-28] MEDS: Finasteride 5 MG Tablet PO (09:20)
[2023-07-28] MEDS: Empagliflozin 10 MG Tablet PO (09:21)
[2023-07-28] MEDS: Potassium Chloride Oral Tablet 20 MEQ PO ×2 (09:21→17:53)
[2023-07-28] MEDS: Sodium Chloride 0.65% 1 SPRAY SPRAY.BTL 2 SPRAY NASAL (09:27)
[2023-07-28] MEDS: Tamsulosin HCl 0.4 MG Capsule PO (21:06)
[2023-07-29] VITALS (11 sets, daily range): BP systolic 108–129; BP diastolic 64–80; PULSE 80–99; RESP 16–22; TEMP 36.6; O2SAT 95–97
[2023-07-29] MEDS: hydrALAZINE 50 MG Tablet PO ×4 (05:15→21:26)
[2023-07-29] MEDS: Levothyroxine 50 MCG Tablet PO (05:15)
[2023-07-29] MEDS: Sodium Chloride 0.65% 1 SPRAY SPRAY.BTL 2 SPRAY NASAL (05:20)
[2023-07-29] MEDS: Sucralfate 1 GM Tablet PO ×3 (05:56→16:24)
[2023-07-29 06:13] LABS: International Normalized Ratio 1.8; Prothrombin Time (Protime)PT. 20.6 SECONDS (11.7-14.9)
[2023-07-29] MEDS: Albuterol 2.5 MG/3 ML VIAL.NEB. INHALATION (08:16)
[2023-07-29] MEDS: Potassium Chloride Oral Tablet 20 MEQ PO ×2 (09:32→17:24)
[2023-07-29] MEDS: Lactulose 20 GM/30 ML UDC 10 GM PO (09:33)
[2023-07-29] MEDS: Furosemide 40 MG Tablet PO ×2 (09:33→17:24)
[2023-07-29] MEDS: Vitamin B Comp W-C Capsule 1 CAP PO ×2 (09:34→21:27)
[2023-07-29] MEDS: Amiodarone 200 MG Tablet 100 MG PO ×2 (09:35→21:25)
[2023-07-29] MEDS: Loratadine 10 MG Tablet PO (09:35)
[2023-07-29] MEDS: Metoprolol Tartrate 25 MG Tablet PO ×2 (09:36→21:25)
[2023-07-29] MEDS: Empagliflozin 10 MG Tablet PO (09:36)
[2023-07-29] MEDS: Isosorbide DN 10 MG Tablet 5 MG PO ×2 (09:36→21:27)
[2023-07-29] MEDS: Magnesium Chloride 64 MG Delay Rel.Tablet 128 MG PO ×2 (09:36→21:27)
[2023-07-29] MEDS: Famotidine 20 MG Tablet PO (09:37)
[2023-07-29] MEDS: Ascorbic Acid 500 MG Tablet PO (09:37)
[2023-07-29] MEDS: Finasteride 5 MG Tablet PO (09:37)
[2023-07-29] MEDS: Cholecalciferol (VIT D3) 25 MCG TABLET (1,000 UNITS) PO (09:37)
--- NOTE | 2023-07-29 11:30 | MDS.RN ---
MDS pain interview completed.
--- NOTE | 2023-07-29 12:26 | CASEMGMT ---
Social Work BIMS () and PHQ-2 () completed for MDS assessment. Roya Sarabia MSW CAT AND DOG BATHER
[2023-07-29] MEDS: MELATONIN 3 MG TABLET PO (21:24)
[2023-07-29] MEDS: LORazepam 0.5 MG Tablet PO (21:24)
[2023-07-29] MEDS: Tamsulosin HCl 0.4 MG Capsule PO (21:28)
[2023-07-30] VITALS (10 sets, daily range): BP systolic 100–132; BP diastolic 63–85; PULSE 80–102; RESP 16–22; TEMP 36.2; O2SAT 95–98; BMI 22.4
[2023-07-30] MEDS: Sucralfate 1 GM Tablet PO ×3 (05:40→16:49)
[2023-07-30] MEDS: hydrALAZINE 50 MG Tablet PO ×4 (05:40→22:25)
[2023-07-30] MEDS: Levothyroxine 50 MCG Tablet PO (05:40)
[2023-07-30] MEDS: Albuterol 2.5 MG/3 ML VIAL.NEB. INHALATION ×2 (07:25→19:00)
[2023-07-30 08:16] LABS: International Normalized Ratio 1.7
[2023-07-30] MEDS: Potassium Chloride Oral Tablet 20 MEQ PO ×2 (08:54→16:50)
[2023-07-30] MEDS: Isosorbide DN 10 MG Tablet 5 MG PO ×2 (08:55→22:25)
[2023-07-30] MEDS: Vitamin B Comp W-C Capsule 1 CAP PO ×2 (08:56→22:26)
[2023-07-30] MEDS: Magnesium Chloride 64 MG Delay Rel.Tablet 128 MG PO ×2 (08:57→22:24)
[2023-07-30] MEDS: Amiodarone 200 MG Tablet 100 MG PO ×2 (08:58→22:25)
[2023-07-30] MEDS: Cholecalciferol (VIT D3) 25 MCG TABLET (1,000 UNITS) PO (08:58)
[2023-07-30] MEDS: Ascorbic Acid 500 MG Tablet PO ×2 (08:59→09:00)
[2023-07-30] MEDS: Famotidine 20 MG Tablet PO (08:59)
[2023-07-30] MEDS: Loratadine 10 MG Tablet PO (08:59)
[2023-07-30] MEDS: Furosemide 40 MG Tablet PO ×2 (08:59→16:49)
[2023-07-30] MEDS: Empagliflozin 10 MG Tablet PO (09:00)
[2023-07-30] MEDS: Lactulose 20 GM/30 ML UDC 10 GM PO (09:02)
[2023-07-30] MEDS: Finasteride 5 MG Tablet PO (09:02)
[2023-07-30] MEDS: Metoprolol Tartrate 25 MG Tablet PO ×2 (09:13→22:24)
[2023-07-30] MEDS: Tamsulosin HCl 0.4 MG Capsule PO (22:25)
[2023-07-30] MEDS: MELATONIN 3 MG TABLET PO (22:31)
[2023-07-31] VITALS (10 sets, daily range): BP systolic 104–120; BP diastolic 50–74; PULSE 72–90; RESP 16–22; TEMP 36.2; O2SAT 97; BMI 22.3
[2023-07-31] MEDS: Levothyroxine 50 MCG Tablet PO (05:55)
[2023-07-31] MEDS: hydrALAZINE 50 MG Tablet PO ×4 (05:55→21:41)
[2023-07-31] MEDS: Sucralfate 1 GM Tablet PO ×3 (05:55→16:10)
[2023-07-31] MEDS: Albuterol 2.5 MG/3 ML VIAL.NEB. INHALATION ×3 (06:30→19:06)
[2023-07-31 08:57] LABS: Absolute Lymphocyte Count 0.62 X10^3/uL (0.83-4.51); Absolute Neutrophil Count 9.7 X10^3/uL (2.0-7.7); Basophil# 0.07 X10^3/uL; Basophil% 0.6 % (0-1); Eosinophils% 1.7 % (0-5); Hematocrit 30.9 % (40-54); Hemoglobin 9.3 g/dL (13.0-16.5); Lymphocyte # 0.62 X10^3/ul (0.83-4.51); Lymphocyte % 5.4 % (19-41); Mean Corp Hgb Conc 30.1 g/dL (32-36); Mean Corpuscular Hgb 30.6 pg (27.0-32.0); Mean Corpuscular Volume 101.6 fL (80-94); Mean Platelet Vol. 9.8 fl (6.2-12.0); Monocyte# 0.78 X10^3/uL; Monocyte% 6.8 % (0-10); NRBC Flagged by Analyzer 0 % (0-5); Neutrophil # 9.73 X10^3/uL (2.7-7.7); Neutrophil % 84.7 % (47-70); POSITIVE MORPHOLOGY YES; Platelet Count 322 K/mm3 (150-450); RBC Distribution Width CV 19.8 % (11.6-14.6); RBC Distribution Width SD 73.6 fl (35.1-43.9); Red Blood Count 3.04 M/mm3 (4.6-6.2); White Blood Count 11.5 K/mm3 (4.4-11.0)
[2023-07-31 09:02] LABS: Differential Indicated SCAN CRITERIA MET
[2023-07-31 09:03] LABS: International Normalized Ratio 1.7; Prothrombin Time (Protime)PT. 20.2 SECONDS (11.7-14.9)
[2023-07-31] MEDS: Potassium Chloride Oral Tablet 20 MEQ PO (09:04)
[2023-07-31] MEDS: Magnesium Chloride 64 MG Delay Rel.Tablet 128 MG PO ×2 (09:04→21:40)
[2023-07-31] MEDS: Lactulose 20 GM/30 ML UDC 10 GM PO (09:05)
[2023-07-31] MEDS: Amiodarone 200 MG Tablet 100 MG PO ×2 (09:05→21:40)
[2023-07-31] MEDS: Vitamin B Comp W-C Capsule 1 CAP PO ×2 (09:05→21:41)
[2023-07-31] MEDS: Isosorbide DN 10 MG Tablet 5 MG PO ×2 (09:06→21:40)
[2023-07-31] MEDS: Cholecalciferol (VIT D3) 25 MCG TABLET (1,000 UNITS) PO (09:06)
[2023-07-31] MEDS: Ascorbic Acid 500 MG Tablet PO (09:07)
[2023-07-31] MEDS: Empagliflozin 10 MG Tablet PO (09:07)
[2023-07-31] MEDS: Loratadine 10 MG Tablet PO (09:07)
[2023-07-31] MEDS: Famotidine 20 MG Tablet PO (09:08)
[2023-07-31] MEDS: Furosemide 40 MG Tablet PO ×2 (09:08→17:30)
[2023-07-31] MEDS: Finasteride 5 MG Tablet PO (09:09)
[2023-07-31] MEDS: Metoprolol Tartrate 25 MG Tablet PO ×2 (09:16→21:40)
[2023-07-31 09:24] LABS: Anion Gap 6 (5-15); BUN 56 mg/dL (7-18); BUN/Creat Ratio 21.9 RATIO (10-20); Calcium,Total 8.5 mg/dL (8.5-10.1); Chloride 107 mmol/L (98-107); Creatinine, Serum 2.56 mg/dL (0.70-1.30); EST Glomerular Filtration Rate 26 mL/min (>60); Est Glom Filt Rate - Afr Amer 31 mL/min (>60); Estimated Creatinine Clearance 21.03 ml/min; Glucose 136 mg/dL (74-106); Potassium 3.2 mmol/L (3.5-5.1); Sodium Level 140 mmol/L (136-145)
[2023-07-31 11:14] LABS: Anisocytosis 2+; Differential Comment SCANNED; Macrocytosis 1+; Microcytosis 1+
[2023-07-31] MEDS: Potassium Chloride Oral Tablet 20 MEQ 40 MEQ PO (17:29)
[2023-07-31] MEDS: Tamsulosin HCl 0.4 MG Capsule PO (21:40)
[2023-07-31] MEDS: MELATONIN 3 MG TABLET PO (21:41)
[2023-08-01] VITALS (10 sets, daily range): BP systolic 105–122; BP diastolic 56–73; PULSE 72–98; RESP 16–20; TEMP 36; O2SAT 98–99; BMI 22.1
[2023-08-01] MEDS: hydrALAZINE 50 MG Tablet PO ×4 (05:53→21:32)
[2023-08-01] MEDS: Sucralfate 1 GM Tablet PO ×3 (05:53→16:03)
[2023-08-01] MEDS: Levothyroxine 50 MCG Tablet PO (05:53)
[2023-08-01 06:03] LABS: International Normalized Ratio 1.9; Prothrombin Time (Protime)PT. 21.5 SECONDS (11.7-14.9)
[2023-08-01] MEDS: Potassium Chloride Oral Tablet 20 MEQ 40 MEQ PO ×2 (08:30→17:11)
[2023-08-01] MEDS: Furosemide 40 MG Tablet PO ×2 (08:31→17:10)
[2023-08-01] MEDS: Cholecalciferol (VIT D3) 25 MCG TABLET (1,000 UNITS) PO (08:32)
[2023-08-01] MEDS: Famotidine 20 MG Tablet PO (08:32)
[2023-08-01] MEDS: Magnesium Chloride 64 MG Delay Rel.Tablet 128 MG PO ×2 (08:33→21:32)
[2023-08-01] MEDS: Metoprolol Tartrate 25 MG Tablet PO ×2 (08:33→21:33)
[2023-08-01] MEDS: Finasteride 5 MG Tablet PO (08:33)
[2023-08-01] MEDS: Isosorbide DN 10 MG Tablet 5 MG PO ×2 (08:34→21:33)
[2023-08-01] MEDS: Empagliflozin 10 MG Tablet PO (08:34)
[2023-08-01] MEDS: Amiodarone 200 MG Tablet 100 MG PO ×2 (08:34→21:33)
[2023-08-01] MEDS: Lactulose 20 GM/30 ML UDC 10 GM PO (08:35)
[2023-08-01] MEDS: Loratadine 10 MG Tablet PO (08:35)
[2023-08-01] MEDS: Vitamin B Comp W-C Capsule 1 CAP PO ×2 (08:36→21:33)
--- NOTE | 2023-08-01 08:48 | NURSING ---
Electric Engine Mechanic Note; MDS for 07/30/2023 Complete
[2023-08-01] MEDS: Albuterol 2.5 MG/3 ML VIAL.NEB. INHALATION (19:50)
[2023-08-01] MEDS: Tamsulosin HCl 0.4 MG Capsule PO (21:33)
[2023-08-02] VITALS (12 sets, daily range): BP systolic 101–120; BP diastolic 63–76; PULSE 75–86; RESP 16–20; TEMP 36.6; O2SAT 96–99; BMI 22.3
[2023-08-02] MEDS: Levothyroxine 50 MCG Tablet PO (05:32)
[2023-08-02] MEDS: hydrALAZINE 50 MG Tablet PO ×4 (05:33→21:17)
[2023-08-02] MEDS: Sucralfate 1 GM Tablet PO ×3 (05:33→16:26)
[2023-08-02 06:09] LABS: Anion Gap 8 (5-15); BUN 55 mg/dL (7-18); BUN/Creat Ratio 22.5 RATIO (10-20); Calcium,Total 8.1 mg/dL (8.5-10.1); Chloride 105 mmol/L (98-107); Creatinine, Serum 2.44 mg/dL (0.70-1.30); EST Glomerular Filtration Rate 27 mL/min (>60); Est Glom Filt Rate - Afr Amer 33 mL/min (>60); Estimated Creatinine Clearance 22.02 ml/min; Glucose 91 mg/dL (74-106); Potassium 3.6 mmol/L (3.5-5.1); Sodium Level 141 mmol/L (136-145)
[2023-08-02] MEDS: Albuterol 2.5 MG/3 ML VIAL.NEB. INHALATION ×3 (06:39→18:45)
[2023-08-02] MEDS: Lactulose 20 GM/30 ML UDC 10 GM PO (09:10)
[2023-08-02] MEDS: Potassium Chloride Oral Tablet 20 MEQ 40 MEQ PO ×2 (09:11→17:18)
[2023-08-02] MEDS: Vitamin B Comp W-C Capsule 1 CAP PO ×2 (09:12→21:18)
[2023-08-02] MEDS: Magnesium Chloride 64 MG Delay Rel.Tablet 128 MG PO ×2 (09:13→21:17)
[2023-08-02] MEDS: Isosorbide DN 10 MG Tablet 5 MG PO ×2 (09:13→21:18)
[2023-08-02] MEDS: Empagliflozin 10 MG Tablet PO (09:13)
[2023-08-02] MEDS: Cholecalciferol (VIT D3) 25 MCG TABLET (1,000 UNITS) PO (09:14)
[2023-08-02] MEDS: Famotidine 20 MG Tablet PO (09:14)
[2023-08-02] MEDS: Finasteride 5 MG Tablet PO (09:14)
[2023-08-02] MEDS: Ascorbic Acid 500 MG Tablet PO (09:14)
[2023-08-02] MEDS: Loratadine 10 MG Tablet PO (09:15)
[2023-08-02] MEDS: Furosemide 40 MG Tablet PO ×2 (09:16→17:19)
[2023-08-02] MEDS: Amiodarone 200 MG Tablet 100 MG PO ×2 (09:17→21:18)
[2023-08-02] MEDS: Metoprolol Tartrate 25 MG Tablet PO ×2 (09:17→21:18)
[2023-08-02] MEDS: Tamsulosin HCl 0.4 MG Capsule PO (21:17)
[2023-08-03] VITALS (10 sets, daily range): BP systolic 84–116; BP diastolic 41–70; PULSE 63–89; RESP 16–22; TEMP 36.6; O2SAT 92–99; BMI 22.1
[2023-08-03] MEDS: LORazepam 0.5 MG Tablet PO ×2 (01:03→21:39)
[2023-08-03] MEDS: MELATONIN 3 MG TABLET PO ×2 (01:03→21:39)
[2023-08-03] MEDS: hydrALAZINE 50 MG Tablet PO ×3 (05:23→16:17)
[2023-08-03] MEDS: Levothyroxine 50 MCG Tablet PO (05:23)
[2023-08-03 06:29] LABS: Anion Gap 4 (5-15); BUN 57 mg/dL (7-18); BUN/Creat Ratio 21.1 RATIO (10-20); Calcium,Total 8.3 mg/dL (8.5-10.1); Chloride 106 mmol/L (98-107); EST Glomerular Filtration Rate 24 mL/min (>60); Est Glom Filt Rate - Afr Amer 29 mL/min (>60); Glucose 90 mg/dL (74-106); Potassium 3.9 mmol/L (3.5-5.1); Sodium Level 139 mmol/L (136-145)
[2023-08-03] MEDS: Lactulose 20 GM/30 ML UDC 10 GM PO (08:49)
[2023-08-03] MEDS: Magnesium Chloride 64 MG Delay Rel.Tablet 128 MG PO ×2 (08:50→21:38)
[2023-08-03] MEDS: Isosorbide DN 10 MG Tablet 5 MG PO (08:50)
[2023-08-03] MEDS: Vitamin B Comp W-C Capsule 1 CAP PO ×2 (08:50→21:37)
[2023-08-03] MEDS: Sucralfate 1 GM Tablet PO ×3 (08:50→16:16)
[2023-08-03] MEDS: Potassium Chloride Oral Tablet 20 MEQ 40 MEQ PO ×2 (08:51→16:18)
[2023-08-03] MEDS: Cholecalciferol (VIT D3) 25 MCG TABLET (1,000 UNITS) PO (08:52)
[2023-08-03] MEDS: Furosemide 40 MG Tablet PO ×2 (08:52→16:18)
[2023-08-03] MEDS: Amiodarone 200 MG Tablet 100 MG PO ×2 (08:53→21:37)
[2023-08-03] MEDS: Metoprolol Tartrate 25 MG Tablet PO (08:56)
[2023-08-03] MEDS: Finasteride 5 MG Tablet PO (08:56)
[2023-08-03] MEDS: Ascorbic Acid 500 MG Tablet PO (08:57)
[2023-08-03] MEDS: Empagliflozin 10 MG Tablet PO (08:57)
[2023-08-03] MEDS: Loratadine 10 MG Tablet PO (08:58)
[2023-08-03] MEDS: Famotidine 20 MG Tablet PO (08:58)
--- NOTE | 2023-08-03 11:24 | MDS.RN ---
Information for the mds was obtained from review of the clinical record, interview of resident, staff, and direct observation of resident's care.
[2023-08-03] MEDS: Albuterol 2.5 MG/3 ML VIAL.NEB. INHALATION ×2 (13:15→19:03)
--- NOTE | 2023-08-03 14:10 | CASEMGMT ---
Addendum entered by Roya Sarabia 08/04/23 14:14: W/C transport scheduled through [facility] for 1100. PASRR completed. Sent to [facility]. [facility] updated on pts DC. Original Note: Social Work [facility] can accept pt. SW spoke with pt and MIKE to update. Discussed DC to [facility] on 08/08. Pt and MIKE agreeable. SW to schedule w/c transport as pt is new on O2. Plan: DC to [facility], intermediate, Medicaid 08/08 Roya Sarabia, CORE PLACER BARREL POLISHER
[2023-08-03] MEDS: Tamsulosin HCl 0.4 MG Capsule PO (21:37)
[2023-08-04] VITALS (8 sets, daily range): BP systolic 107–121; BP diastolic 68–83; PULSE 78–106; RESP 16; TEMP 36.6; O2SAT 94–99; BMI 20.5
[2023-08-04] MEDS: Sucralfate 1 GM Tablet PO ×3 (05:18→17:57)
[2023-08-04] MEDS: hydrALAZINE 50 MG Tablet PO ×2 (05:18→21:56)
[2023-08-04] MEDS: Levothyroxine 50 MCG Tablet PO (05:18)
[2023-08-04 06:23] LABS: International Normalized Ratio 2.1; Prothrombin Time (Protime)PT. 23.8 SECONDS (11.7-14.9)
[2023-08-04 06:36] LABS: Anion Gap 7 (5-15); BUN 62 mg/dL (7-18); BUN/Creat Ratio 22.5 RATIO (10-20); Chloride 105 mmol/L (98-107); Creatinine, Serum 2.76 mg/dL (0.70-1.30); EST Glomerular Filtration Rate 24 mL/min (>60); Est Glom Filt Rate - Afr Amer 29 mL/min (>60); Estimated Creatinine Clearance 17.87 ml/min; Glucose 89 mg/dL (74-106); Potassium 3.9 mmol/L (3.5-5.1); Sodium Level 138 mmol/L (136-145)
[2023-08-04] MEDS: Albuterol 2.5 MG/3 ML VIAL.NEB. INHALATION (06:54)
[2023-08-04] MEDS: Potassium Chloride Oral Tablet 20 MEQ 40 MEQ PO ×2 (09:02→17:56)
[2023-08-04] MEDS: Loratadine 10 MG Tablet PO (09:02)
[2023-08-04] MEDS: Furosemide 40 MG Tablet PO ×2 (09:03→17:57)
[2023-08-04] MEDS: Amiodarone 200 MG Tablet 100 MG PO ×2 (09:03→21:55)
[2023-08-04] MEDS: Magnesium Chloride 64 MG Delay Rel.Tablet 128 MG PO ×2 (09:03→21:55)
[2023-08-04] MEDS: Famotidine 20 MG Tablet PO (09:03)
[2023-08-04] MEDS: Metoprolol Tartrate 25 MG Tablet PO ×2 (09:03→21:55)
[2023-08-04] MEDS: Lactulose 20 GM/30 ML UDC 10 GM PO (09:04)
[2023-08-04] MEDS: Finasteride 5 MG Tablet PO (09:04)
[2023-08-04] MEDS: Ascorbic Acid 500 MG Tablet PO (09:04)
[2023-08-04] MEDS: Isosorbide DN 10 MG Tablet 5 MG PO ×2 (09:04→21:57)
[2023-08-04] MEDS: Cholecalciferol (VIT D3) 25 MCG TABLET (1,000 UNITS) PO (09:04)
[2023-08-04] MEDS: Empagliflozin 10 MG Tablet PO (09:04)
[2023-08-04] MEDS: Vitamin B Comp W-C Capsule 1 CAP PO ×2 (09:05→21:56)
--- NOTE | 2023-08-04 10:26 | NURSING ---
patient noted wishes to change code status from full to DNRCCA w/ no intubation. DNRCCA W/ No intubation signed at bedside. Patient did discuss hospice w/ this nurse as well. States he is not ready to cross that bridge at this time but is keeping it in his mind d/t increasing fatigue/weakness.
--- NOTE | 2023-08-04 18:06 | NURSING ---
Patient noted that he would from now on his sister and sister in law to be included in medical making decisions.
--- NOTE | 2023-08-04 19:51 | DS.PCM_ITS ---
Providers Date of Admission: 07/23/23 Primary Care Physician: Dr. César Chinchilla MD Consultations 07/24/23 15:45 Consult: Nephrology Routine Consulting Provider: Claudia Paul Reason for Consult: Acute on chronic kidney injury. EMERGENT Consult: No Notified: Yes Date Notified: 07/24/23 Time Notified: 15:45 Method of Notification: Answering Service Method of Consult:: Telemedicine 07/26/23 11:01 Consult: Hospice / Palliative Care Routine Consulting Provider: [facility] Reason for Consult: PALLIATIVE - SEVERE CHF, RECOMMENDING DNR, OVERALL DECLINE EMERGENT Consult: No Notified: Yes Date Notified: 07/25/23 Time Notified: 11:01 Method of Notification: Text Reason For Visit: HOSPITAL ACQUIRED PNEUMONIA AND EXACERBATION Diagnosis Discharge Diagnosis (1) Acute kidney injury: Status: Resolved Code(s): N17.9 - Acute kidney failure, unspecified (2) Stage 3b chronic kidney disease: Status: Inactive Code(s): N18.32 - Chronic kidney disease, stage 3b Plan 83 year old male with below past medical history hospitalized for 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 * Debility - PT/OT. * Pain - Tylenol 1000mg q6 prn pain (1-10). * Bowel - Miralax 17gm daily, Lactulose 10gm daily. * Adult immunization - Administer pneumonia vaccine, covid vaccine, flu vaccine as appropriate. * DVT prophylaxis - on warfarin. * Shortness of breath - Albuterol 2.5mg neb q6hwa.rt. * Atrial fibrillation - Metoprolol 25mg bid, Amiodarone 100mg bid, warfarin 3mg/4mg alternating, INR 4.0, hold warfarin, monitor INR. * Vitamin C deficiency - Vitamin C 500mg daily. * Vitamin D deficiency - D3 25mcg daily. * Acute on chronic HFrEF - Metoprolol 25mg bid, Hydralazine 50mg 4x/day, Isosorbide 5mg bid, Jardiance 10mg daily, Furosemide 40mg daily. * GERD - Famotidine 40mg daily, Sucralfate 1gm tid. * BPH - Finasteride 5mg daily, Tamsulosin 0.4mg qhs. * GI prophylaxis - Lactobacillus 2 tablets bid. * Hypothyroidism - Levothyroxine 50mcg daily. * Allergic rhinitis - Loratadine 10mg daily. * Hypomagnesemia - Magnesium chloride 128mg bid. * Insomnia - Melatonin 3mg qhs prn. * Coronary artery disease - Metoprolol 25mg bid, Isosorbice 5mg bid, NTG 0.4mg q5m prn chest pain. * Hypokalemia - KCL 20meq bidcm. * Nausea - Phenergan 25mg im q6 prn. * Leg Cramps - Vitamin B complex 1 cap bid. Medications at Discharge Home Medications tamsulosin 0.4 mg capsule 0.4 mg PO QHS bladder 11/18/21 vitamin B complex 1 cap PO BID supplement 05/01/22 ascorbic acid (vitamin C) 500 mg tablet 500 mg PO DAILY supplement 07/20/22 finasteride 5 mg tablet 5 mg PO DAILY prostate 08/05/22 cholecalciferol (vitamin D3) 25 mcg (1,000 unit) capsule (Vitamin D3) 1,000 unit PO DAILY supplement 02/19/23 polyethylene glycol 3350 17 gram oral powder packet 17 g PO DAILY constipation 02/19/23 amiodarone 100 mg tablet 100 mg PO BID heart 02/21/23 sucralfate 1 gram tablet 1 g PO TID@0700,1100,1600 stomach 30 days #90 tabs 03/21/23 loratadine 10 mg tablet (Claritin) 10 mg PO DAILY allergies 06/16/23 warfarin 3 mg tablet (Jantoven) 3 mg PO SuTuThSa@1700 blood thinner #0 tabs 06/21/23 warfarin 4 mg tablet See Rx Instructions .Route .COMPLEX blood thinner #60 tabs 06/21/23 metoprolol tartrate 25 mg tablet 25 mg PO BID BP #0 tabs 07/06/23 empagliflozin 10 mg tablet (Jardiance) 10 mg PO DAILY Diabetes #0 tabs 07/22/23 hydralazine 50 mg tablet 50 mg PO 4X/DAY BP #0 tabs 07/22/23 nitroglycerin 0.4 mg sublingual tablet 0.4 mg sublingual Q5M PRN Cardiac/Chest Pain #0 tabs 07/22/23 acetaminophen 500 mg tablet 1,000 mg (2 x 500 mg) PO Q6H PRN PRN PAIN 1-10 #0 tabs 08/04/23 acidophilus 25 million cell-pectin, citrus 100 mg tablet 2 tab PO BID #0 tabs 08/04/23 albuterol sulfate 2.5 mg/3 mL (0.083 %) solution for nebulization 2.5 mg (3 mL) inhalation Q6HWA.RT #0 mL 08/04/23 famotidine 20 mg tablet 20 mg PO DAILY #0 tabs 08/04/23 furosemide 40 mg tablet 40 mg PO BIDCM #0 tabs 08/04/23 isosorbide dinitrate 10 mg tablet 5 mg (1/2 x 10 mg) PO BID #0 tabs 08/04/23 lactulose 20 gram/30 mL oral solution 10 g (15 mL) PO DAILY #0 mL 08/04/23 levothyroxine 50 mcg tablet 50 mcg PO 0600 #0 tabs 08/04/23 lorazepam 0.5 mg tablet 0.5 mg PO Q6H PRN PRN ANXIETY/RESTLESSNESS 3 days #12 tabs 08/04/23 magnesium chloride 64 mg (magnesium chloride) tablet,delayed release (Mag 64) 128 mg (2 x 64 mg) PO BID #0 tabs 08/04/23 melatonin 3 mg tablet 3 mg PO QHS PRN PRN Insomnia #0 tabs 08/04/23 potassium chloride 20 mEq tablet,extended release(part/cryst) 40 meq (2 x 20 mEq) PO BIDCM #0 tabs 08/04/23 sodium chloride 0.65 % nasal spray aerosol (Deep Sea Nasal) 2 spray NASAL TID PRN PRN NASAL DRYNESS #0 mL 08/04/23 Hospital Course Operations None Procedures None Summary of Care Provided Minutes Spent on Discharge: 35 Hospital Course: 83 year old male with below past medical history hospitalized for acute on chron ic heart failure reduced ejection fraction, complicated by anemia, pneumonia ruled out, admitted to TCU with debility, here for rehabilitation, strengthening, prior to disposition determination. Discharge to [facility], intermediate, Medicaid 08/08/2023. Resident hospice appropriate, but not ready for hospice. Physical Exam Const alert General Appearance: cooperative HEENT normocephalic Eyes PERRL and EOMs intact bilaterally Neck supple, no JVD and no carotid bruits Resp normal respiratory effort, normal air movement and clear to auscultation bilaterally Cardio regular rate and regular rhythm GI normal to inspection, nondistended, normoactive bowel sounds, non-tender and non-distended Extremity normal capillary refill General Extremity: Negative for edema Skin no rashes or lesions noted General Skin Exam: no breakdown Psych affect normal Appearance: appropriate Weight / BMI Weight Weight: 61.235 kg Body Mass Index (BMI) 20.5 ABG / Lab / Microbiology Data 07/31/23 08:18 08/04/23 05:14 Laboratory: Laboratory Results - last 24 hr 08/04/23 05:14: PT 23.8 H, INR 2.1, Sodium 138, Potassium 3.9, Chloride 105, Carbon Dioxide 26.0, Anion Gap 7, BUN 62 H, Creatinine 2.76 H, Estim Creat Clear Calc 17.87, Est GFR (MDRD) Af Amer 29 L, Est GFR (MDRD) Non-Af 24 L, BUN/Creatinine Ratio 22.5 H, Glucose 89, Calcium 8.0 L Microbiology: Microbiology 08/04/23 05:15 Nasal Secretion SARS-CoV-2 Antigen (Rapid) - Final 08/01/23 05:52 Nasal Secretion SARS-CoV-2 Antigen (Rapid) - Final 07/28/23 05:25 Nasal Secretion SARS-CoV-2 Antigen (Rapid) - Final 07/25/23 05:22 Nasal Secretion SARS-CoV-2 Antigen (Rapid) - Final D/C Instructions Discharge Diet: No restrictions Discharge Activity: Return to Normal Activity, May Shower and Use Walker Weight Bearing Status: Weight bearing as tolerated Call your doctor if you observe: Fever of 101 or Higher, Inability to urinate, Inability to have a bowel movement, Shortness of breath, Dizziness, Fainting spells, Swelling in the ankles, Chest pain and Uncontrolled pain Additional Instructions: Discharge to [facility], intermediate, Medicaid 08/08/2023. Meaningful Use Info Meaningful Use Diagnoses (Choose all that apply): None applicable Discharge Plan Admission Admit Date/Time: 07/23/23 11:36 Primary Reason for Your Visit: Debility. Attending Provider: Marcus Samuel Chi Primary Care Provider: César Chinchilla Consulting Providers: Claudia Paul; Melvin Mullins; Lizet Morales; Ann Brothers; Nimco Montesinos DIE CAST PATTERNMAKER Instructions Additional Instructions / Restrictions: Discharge to [facility], intermediate, Medicaid 08/08/2023. Resident hospice appropriate, but not ready for hospice. Discharge Orders/Prescriptions Prescriptions: New furosemide 40 mg Tablet 40 mg PO BIDCM Qty: 0 0RF isosorbide dinitrate 10 mg Tablet 5 mg PO BID Qty: 0 0RF albuterol sulfate 2.5 mg /3 mL (0.083 %) Solution For Nebulization 2.5 mg inhalation Q6HWA.RT Qty: 0 0RF melatonin 3 mg Tablet 3 mg PO QHS PRN PRN (Reason: Insomnia) Qty: 0 0RF acetaminophen 500 mg Tablet 1,000 mg PO Q6H PRN PRN (Reason: PAIN 1-10) Qty: 0 0RF potassium chloride 20 mEq Tablet,Er Particles/Crystals 40 meq PO BIDCM Qty: 0 0RF famotidine 20 mg Tablet 20 mg PO DAILY Qty: 0 0RF lorazepam 0.5 mg Tablet 0.5 mg PO Q6H PRN PRN (Reason: ANXIETY/RESTLESSNESS) 3 Days Qty: 12 0RF levothyroxine 50 mcg Tablet 50 mcg PO 0600 Qty: 0 0RF Deep Sea Nasal 0.65 % Aerosol,[place] 2 spray NASAL TID PRN PRN (Reason: NASAL DRYNESS) Qty: 0 0RF acidophilus-pectin, citrus 25 million cell -100 mg Tablet 2 tab PO BID Qty: 0 0RF Mag 64 64 mg Tablet,Delayed Release (Dr/Ec) 128 mg PO BID Qty: 0 0RF lactulose 20 gram/30 mL Solution 10 g PO DAILY Qty: 0 0RF Continued tamsulosin 0.4 mg capsule 0.4 mg PO QHS ascorbic acid (vitamin C) 500 mg tablet 500 mg PO DAILY finasteride 5 mg tablet 5 mg PO DAILY vitamin B complex Capsule 1 cap PO BID polyethylene glycol 3350 17 gram Powder In Packet 17 g PO DAILY cholecalciferol (vitamin D3) [Vitamin D3] 25 mcg (1,000 unit) Capsule 1,000 unit PO DAILY amiodarone 100 mg tablet 100 mg PO BID sucralfate 1 gram Tablet 1 g PO TID@0700,1100,1600 30 Days Qty: 90 0RF metoprolol tartrate 25 mg Tablet 25 mg PO BID Qty: 0 0RF nitroglycerin 0.4 mg Tablet, Sublingual 0.4 mg sublingual Q5M PRN (Reason: Cardiac/Chest Pain) Qty: 0 0RF hydralazine 50 mg Tablet 50 mg PO 4X/DAY Qty: 0 0RF Jardiance 10 mg Tablet 10 mg PO DAILY Qty: 0 0RF loratadine [Claritin] 10 mg tablet 10 mg PO DAILY warfarin [Augtoven] 3 mg Tablet 3 mg PO SuTuThSa@1700 Qty: 0 0RF warfarin 4 mg tablet See Rx Instructions .Route .COMPLEX Qty: 60 0RF Protocol: Dose Management Condition: Tuesday Dose/Route: 4 mg Instruction: 1 x 4 mg tablet Condition: Tuesday Dose/Route: 4 mg Instruction: 1 x 4 mg tablet Condition: Tuesday Dose/Route: 4 mg Instruction: 1 x 4 mg tablet Condition: Tuesday Dose/Route: 4 mg Instruction: 1 x 4 mg tablet Condition: Dose/Route: 2 mg Instruction: 1 x 2 mg tablet Condition: Tuesday Dose/Route: 2 mg Instruction: 1 x 2 mg tablet Condition: Tuesday Dose/Route: 2 mg Instruction: 1 x 2 mg tablet Protocol Text: Adjustment Start Date: Tuesday06/17/23 INR Value: 1.7 INR Date: 06/17/23 Recheck Date: 06/24/23 Rx Instructions: 4mg Tue, Tue, Tue. 3mg Tue, , , Sat orally; Discontinued levothyroxine 25 mcg tablet 50 mcg PO DAILY Patient Comments: take 1 tablet by mouth once daily Linzess 72 mcg capsule 72 mcg PO DAILY PRN (Reason: Diarrhea) Hold Instructions: Resume on 02/22/23. Restart on Discharge from [facility] Prolia 60 MG/ML syringe 60 mg SQ .[id number] furosemide 40 mg Tablet 40 mg PO DAILY 30 Days Qty: 30 0RF acetaminophen 500 mg Tablet 1,000 mg PO Q8 PRN (Reason: pain) isosorbide dinitrate 10 mg Tablet 5 mg PO BID Qty: 0 0RF albuterol sulfate 2.5 mg /3 mL (0.083 %) Solution For Nebulization 2.5 mg inhalation Q6HWA.RT Qty: 0 0RF melatonin 3 mg Tablet 3 mg PO QHS PRN PRN (Reason: Insomnia) Qty: 0 0RF potassium chloride [Klor-Con M20] 20 mEq Tablet,Er Particles/Crystals 20 meq PO BID Qty: 0 0RF promethazine 25 mg/mL Solution 25 mg IM Q6H PRN PRN (Reason: Breakthrough nausea/vomiting) Qty: 0 0RF acidophilus-pectin, citrus 25 million cell -100 mg Tablet 2 tab PO BID Qty: 0 0RF Mag 64 64 mg Tablet,Delayed Release (Dr/Ec) 128 mg PO BID Qty: 0 0RF famotidine 40 mg tablet 40 mg PO DAILY Qty: 30 11RF lactulose 10 gram/15 mL solution 10 g PO DAILY 30 Days Qty: 450 0RF Rx Instructions: take once a day and can take up to 2 more times in a day as needed for constipation Referrals / Follow Up: César Chinchilla MD [Primary Care Provider] - Krishna Grace DIE CAST PATTERNMAKER, DIE CAST PATTERNMAKER-C [Med Staff - Adv Practice Prof] - 09/01/23 1:30 pm Disposition Disposition (needs filled in before D/C Order can be placed): NonSkilled NH/Int ermed Care
--- NOTE | 2023-08-04 19:59 | TREXTCAR_ITS ---
Diet Diet Order/Speech Therapy: 07/23/23 12:27 Diet: Cardiac - Heart Healthy Food consistency:: Regular Liquid Consistency:: Regular/Thin Dietary Modifications:: Sodium Restricted Is pt able to select menu?: Yes Routine Orders/Code Status Code Status: DNRCC-A (No intubation.) Wound(s) left 3rd toe: Wound Type: Surgical Debridement Left Forearm: Wound Type: Skin Tear Dressing Change: Steri-Strips Therapies Weight Bearing: Weight bearing as tolerated Extremity Affected:: Bilateral Lower Physical Therapy: Eval and Treat Occupational Therapy: Eval and Treat Problem/Diagnosis (1) Acute kidney injury: Status: Resolved Code(s): N17.9 - Acute kidney failure, unspecified (2) Stage 3b chronic kidney disease: Status: Inactive Code(s): N18.32 - Chronic kidney disease, stage 3b Plan 83 year old male with below past medical history hospitalized for 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 * Debility - PT/OT. * Pain - Tylenol 1000mg q6 prn pain (1-10). * Bowel - Miralax 17gm daily, Lactulose 10gm daily. * Adult immunization - Administer pneumonia vaccine, covid vaccine, flu vaccine as appropriate. * DVT prophylaxis - on warfarin. * Shortness of breath - Albuterol 2.5mg neb q6hwa.rt. * Atrial fibrillation - Metoprolol 25mg bid, Amiodarone 100mg bid, warfarin 3mg/4mg alternating, INR 4.0, hold warfarin, monitor INR. * Vitamin C deficiency - Vitamin C 500mg daily. * Vitamin D deficiency - D3 25mcg daily. * Acute on chronic HFrEF - Metoprolol 25mg bid, Hydralazine 50mg 4x/day, Isosorbide 5mg bid, Jardiance 10mg daily, Furosemide 40mg daily. * GERD - Famotidine 40mg daily, Sucralfate 1gm tid. * BPH - Finasteride 5mg daily, Tamsulosin 0.4mg qhs. * GI prophylaxis - Lactobacillus 2 tablets bid. * Hypothyroidism - Levothyroxine 50mcg daily. * Allergic rhinitis - Loratadine 10mg daily. * Hypomagnesemia - Magnesium chloride 128mg bid. * Insomnia - Melatonin 3mg qhs prn. * Coronary artery disease - Metoprolol 25mg bid, Isosorbice 5mg bid, NTG 0.4mg q5m prn chest pain. * Hypokalemia - KCL 20meq bidcm. * Nausea - Phenergan 25mg im q6 prn. * Leg Cramps - Vitamin B complex 1 cap bid. Allergies/Procedures Done in Hospital Allergies diclofenac Allergy (Verified 07/27/23 13:50) rash prednisone Allergy (Verified 07/27/23 13:50) Rash Procedures: None Type of Care/Length of Stay Estimated LOS: Convalescent Care Less Than 30 days Type of Care Needed: Intermediate Rehab Potential: Fair Prognosis: Fair Additional Orders/Day of Discharge Additional Orders: part B therapies Day of Discharge: 08/08/23 Dietary and Speech Recommendations Dietitian Recommendations/Changes: Continue Cardiac, sodium restricted diet w/ fluid restriction as ordered to manage medical conditions. Discharge Plan Admission Admit Date/Time: 07/23/23 11:36 Primary Reason for Your Visit: Debility. Attending Provider: Marcus Samuel Chi Primary Care Provider: César Chinchilla Consulting Providers: Claudia Paul; Melvin Mullins; Lizet Morales; Ann Brothers; Nimco Montesinos [employer] MEMBER Instructions Additional Instructions / Restrictions: Discharge to [facility], Medicaid 08/08/2023. Resident hospice appropriate, but not ready for hospice. Discharge Orders/Prescriptions Prescriptions: New furosemide 40 mg Tablet 40 mg PO BIDCM Qty: 0 0RF isosorbide dinitrate 10 mg Tablet 5 mg PO BID Qty: 0 0RF albuterol sulfate 2.5 mg /3 mL (0.083 %) Solution For Nebulization 2.5 mg inhalation Q6HWA.RT Qty: 0 0RF melatonin 3 mg Tablet 3 mg PO QHS PRN PRN (Reason: Insomnia) Qty: 0 0RF acetaminophen 500 mg Tablet 1,000 mg PO Q6H PRN PRN (Reason: PAIN 1-10) Qty: 0 0RF potassium chloride 20 mEq Tablet,Er Particles/Crystals 40 meq PO BIDCM Qty: 0 0RF famotidine 20 mg Tablet 20 mg PO DAILY Qty: 0 0RF lorazepam 0.5 mg Tablet 0.5 mg PO Q6H PRN PRN (Reason: ANXIETY/RESTLESSNESS) 3 Days Qty: 12 0RF levothyroxine 50 mcg Tablet 50 mcg PO 0600 Qty: 0 0RF Deep Sea Nasal 0.65 % Aerosol,[place] 2 spray NASAL TID PRN PRN (Reason: NASAL DRYNESS) Qty: 0 0RF acidophilus-pectin, citrus 25 million cell -100 mg Tablet 2 tab PO BID Qty: 0 0RF Mag 64 64 mg Tablet,Delayed Release (Dr/Ec) 128 mg PO BID Qty: 0 0RF lactulose 20 gram/30 mL Solution 10 g PO DAILY Qty: 0 0RF Continued tamsulosin 0.4 mg capsule 0.4 mg PO QHS ascorbic acid (vitamin C) 500 mg tablet 500 mg PO DAILY finasteride 5 mg tablet 5 mg PO DAILY vitamin B complex Capsule 1 cap PO BID polyethylene glycol 3350 17 gram Powder In Packet 17 g PO DAILY cholecalciferol (vitamin D3) [Vitamin D3] 25 mcg (1,000 unit) Capsule 1,000 unit PO DAILY amiodarone 100 mg tablet 100 mg PO BID sucralfate 1 gram Tablet 1 g PO TID@0700,1100,1600 30 Days Qty: 90 0RF metoprolol tartrate 25 mg Tablet 25 mg PO BID Qty: 0 0RF nitroglycerin 0.4 mg Tablet, Sublingual 0.4 mg sublingual Q5M PRN (Reason: Cardiac/Chest Pain) Qty: 0 0RF hydralazine 50 mg Tablet 50 mg PO 4X/DAY Qty: 0 0RF Jardiance 10 mg Tablet 10 mg PO DAILY Qty: 0 0RF loratadine [Claritin] 10 mg tablet 10 mg PO DAILY warfarin [Jantoven] 3 mg Tablet 3 mg PO SuTuThSa@1700 Qty: 0 0RF warfarin 4 mg tablet See Rx Instructions .Route .COMPLEX Qty: 60 0RF Protocol: Dose Management Condition: Tuesday Dose/Route: 4 mg Instruction: 1 x 4 mg tablet Condition: Tuesday Dose/Route: 4 mg Instruction: 1 x 4 mg tablet Condition: Tuesday Dose/Route: 4 mg Instruction: 1 x 4 mg tablet Condition: Tuesday Dose/Route: 4 mg Instruction: 1 x 4 mg tablet Condition: Dose/Route: 2 mg Instruction: 1 x 2 mg tablet Condition: Tuesday Dose/Route: 2 mg Instruction: 1 x 2 mg tablet Condition: Tuesday Dose/Route: 2 mg Instruction: 1 x 2 mg tablet Protocol Text: Adjustment Start Date: Tuesday06/17/23 INR Value: 1.7 INR Date: 06/17/23 Recheck Date: 06/24/23 Rx Instructions: 4mg Mon, Wed, Fri. 3mg Sun, , Th, Sat orally; Discontinued levothyroxine 25 mcg tablet 50 mcg PO DAILY Patient Comments: take 1 tablet by mouth once daily Linzess 72 mcg capsule 72 mcg PO DAILY PRN (Reason: Diarrhea) Hold Instructions: Resume on 02/22/23. Restart on Discharge from [facility] Prolia 60 MG/ML syringe 60 mg SQ .[id number] furosemide 40 mg Tablet 40 mg PO DAILY 30 Days Qty: 30 0RF acetaminophen 500 mg Tablet 1,000 mg PO Q8 PRN (Reason: pain) isosorbide dinitrate 10 mg Tablet 5 mg PO BID Qty: 0 0RF albuterol sulfate 2.5 mg /3 mL (0.083 %) Solution For Nebulization 2.5 mg inhalation Q6HWA.RT Qty: 0 0RF melatonin 3 mg Tablet 3 mg PO QHS PRN PRN (Reason: Insomnia) Qty: 0 0RF potassium chloride [Klor-Con M20] 20 mEq Tablet,Er Particles/Crystals 20 meq PO BID Qty: 0 0RF promethazine 25 mg/mL Solution 25 mg IM Q6H PRN PRN (Reason: Breakthrough nausea/vomiting) Qty: 0 0RF acidophilus-pectin, citrus 25 million cell -100 mg Tablet 2 tab PO BID Qty: 0 0RF Mag 64 64 mg Tablet,Delayed Release (Dr/Ec) 128 mg PO BID Qty: 0 0RF famotidine 40 mg tablet 40 mg PO DAILY Qty: 30 11RF lactulose 10 gram/15 mL solution 10 g PO DAILY 30 Days Qty: 450 0RF Rx Instructions: take once a day and can take up to 2 more times in a day as needed for constipation Referrals / Follow Up: César Chinchilla MD [Primary Care Provider] - Krishna Grace B[employer] MEMBER, BURN CREW MEMBER-C [Med Staff - [facility] Prof] - 09/01/23 1:30 pm Disposition Disposition (needs filled in before D/C Order can be placed): NonSkilled NH/Intermed Care
[2023-08-04] MEDS: Tamsulosin HCl 0.4 MG Capsule PO (21:55)
[2023-08-04] MEDS: MELATONIN 3 MG TABLET PO (21:57)
[2023-08-04] MEDS: LORazepam 0.5 MG Tablet PO (21:57)
[2023-08-05] VITALS (9 sets, daily range): BP systolic 91–115; BP diastolic 57–82; PULSE 72–93; RESP 16–18; TEMP 36.1; O2SAT 98–99
[2023-08-05] MEDS: Sucralfate 1 GM Tablet PO ×3 (06:03→16:22)
[2023-08-05] MEDS: Levothyroxine 50 MCG Tablet PO (06:03)
[2023-08-05] MEDS: Albuterol 2.5 MG/3 ML VIAL.NEB. INHALATION (07:29)
[2023-08-05 07:31] LABS: Anion Gap 4 (5-15); BUN 58 mg/dL (7-18); BUN/Creat Ratio 21.5 RATIO (10-20); Calcium,Total 8.3 mg/dL (8.5-10.1); Chloride 105 mmol/L (98-107); EST Glomerular Filtration Rate 24 mL/min (>60); Est Glom Filt Rate - Afr Amer 29 mL/min (>60); Estimated Creatinine Clearance 18.27 ml/min; Glucose 93 mg/dL (74-106); Potassium 4.1 mmol/L (3.5-5.1); Sodium Level 137 mmol/L (136-145)
[2023-08-05] MEDS: Potassium Chloride Oral Tablet 20 MEQ 40 MEQ PO ×2 (09:26→18:05)
[2023-08-05] MEDS: Isosorbide DN 10 MG Tablet 5 MG PO ×2 (09:27→22:08)
[2023-08-05] MEDS: Vitamin B Comp W-C Capsule 1 CAP PO ×2 (09:27→22:07)
[2023-08-05] MEDS: Metoprolol Tartrate 25 MG Tablet PO ×2 (09:27→22:08)
[2023-08-05] MEDS: Ascorbic Acid 500 MG Tablet PO (09:27)
[2023-08-05] MEDS: Empagliflozin 10 MG Tablet PO (09:29)
[2023-08-05] MEDS: Amiodarone 200 MG Tablet 100 MG PO ×2 (09:29→22:08)
[2023-08-05] MEDS: Magnesium Chloride 64 MG Delay Rel.Tablet 128 MG PO ×2 (09:29→22:09)
[2023-08-05] MEDS: Cholecalciferol (VIT D3) 25 MCG TABLET (1,000 UNITS) PO (09:29)
[2023-08-05] MEDS: Lactulose 20 GM/30 ML UDC 10 GM PO (09:30)
[2023-08-05] MEDS: Loratadine 10 MG Tablet PO (09:30)
[2023-08-05] MEDS: Finasteride 5 MG Tablet PO (09:31)
[2023-08-05] MEDS: Furosemide 40 MG Tablet PO ×2 (09:31→18:09)
[2023-08-05] MEDS: Famotidine 20 MG Tablet PO (09:31)
[2023-08-05] MEDS: hydrALAZINE 50 MG Tablet PO ×3 (12:02→22:06)
--- NOTE | 2023-08-05 12:12 | PCM.PN.REN ---
Subjective Subjective Resing in bed, eating lunch. Denies any nausea, vomiting, diarrhea. Reports good appetite. Denies any edema and states he feels his volume status much improved Objective Data Objective Data Vital Signs: Vital Signs Temp Pulse Resp BP Pulse Ox O2 Del Method O2 Flow Rate 97.8 F 84 18 109/68 99 Nasal Cannula 1 08/04/23 15:29 08/05/23 12:02 08/05/23 07:25 08/05/23 09:27 08/05/23 07:25 08/05/23 07:25 08/05/23 09:01 Oxygen Flow Rate (L/min) 1 Oxygen Delivery Method Nasal Cannula Weight: 61.235 kg Body Mass Index (BMI) 20.5 Intake & Output: Intake and Output for Last 24 Hours 08/03/23 08/04/23 08/05/23 23:59 23:59 23:59 Intake Total 940 / 940 840 / 840 240 / 240 Balance 940 / 940 840 / 840 240 / 240 Lab / Micro Data 07/31/23 08:18 08/05/23 06:24 Labs: Laboratory Results - last 24 hr 08/05/23 06:24: Sodium 137, Potassium 4.1, Chloride 105, Carbon Dioxide 28.0, Anion Gap 4 L, BUN 58 H, Creatinine 2.70 H, Estim Creat Clear Calc 18.27, Est GFR (MDRD) Af Amer 29 L, Est GFR (MDRD) Non-Af 24 L, BUN/Creatinine Ratio 21.5 H, Glucose 93, Calcium 8.3 L Micro: Microbiology 08/04/23 05:15 Nasal Secretion SARS-CoV-2 Antigen (Rapid) - Final 08/01/23 05:52 Nasal Secretion SARS-CoV-2 Antigen (Rapid) - Final 07/28/23 05:25 Nasal Secretion SARS-CoV-2 Antigen (Rapid) - Final 07/25/23 05:22 Nasal Secretion SARS-CoV-2 Antigen (Rapid) - Final Physical Exam Narrative Alert and orient x 3, no apparent distress S1, S2, RRR Lung sounds clear anteriorly and posteriorly. No wheezes, rhonchi or rales noted Abdomen soft, nontender No edema Assessment & Plan Assessment/Plan (1) Acute kidney injury: (2) Stage 3b chronic kidney disease: PLAN: Plan This is a pleasant 83-year-old male with past medical history significant for COPD, hypertension, heart failure reduced EF, ALVARADO on CPAP, severe pulmonary hypertension, BPH on Flomax, hyperlipidemia and CKD who is currently residing in TCU after recent hospitalizations. Patient is known to our group as he has been followed by Dr. Gudino for CKD management. We have also been seeing patient during these recent hospitalizations for FE on CKD both in hospital setting and TCU. Patient was transferred back to inpatient status on 07/18 as he was evaluated in the ER for shortness of breath, tachycardia, weakness and acute anemia. Initially patient was receiving IV antibiotics for possible pneumonia. Echo showed moderate-severe global LV systolic dysfunction, severe mitral valve insufficiency, EF 35%. Patient was receiving IV Lasix, due to rise in serum creatinine Lasix dose was reduced during his hospitalization, pneumonia ruled out, blood cultures were negative. Patient did receive PRBC on 07/22. Patient was then admitted back to TCU on 07/23. Patient's hospitalization back mid May 2023 his serum creatinine peaked around 4.33 mg/dL but daily with IV fluids renal function improved, diuretics were on hold. His creatinine leveled off to around 1.6 mg/dL. Patient did not receive any FAMILY READINESS SUPPORT ASSISTANT. Serum creatinine remained near baseline for few weeks. As of recently serum creatinine has begun to rise. On July 21 creatinine was 2.9, July 23 creatinine 2.6 and last 2 days creatinine back to 2.7 mg/dL. - FE on CKD stage 4: Overall renal function remains stable. Volume status appears compensated and near euvolemic. Serum creatinine over the past few weeks has been ranging anywhere from at best 2.4 to 2.9 mg/dL. Last few days creatinine 2.7. Patient is now on furosemide 40 mg p.o. twice daily. Fluctuations in serum creatinine quite possibly secondary to hemodynamics, low blood pressures, cardiorenal syndrome physiology as well as possible CKD progression. Discussed with patient will likely see fluctuating serum creatinine levels given history of heart failure reduced EF, severe pulmonary hypertension and we may need to keep serum creatinine slightly higher than previous baseline to keep patient volume compensated. No changes today, will contine on lasix as ordered. - Current blood pressures acceptable. - evaluated by palliative care/hospice team - possible discharge to [facility] 08/08.
[2023-08-05] MEDS: LORazepam 0.5 MG Tablet PO (22:05)
[2023-08-05] MEDS: MELATONIN 3 MG TABLET PO (22:05)
[2023-08-05] MEDS: Tamsulosin HCl 0.4 MG Capsule PO (22:07)
[2023-08-06] VITALS (11 sets, daily range): BP systolic 99–114; BP diastolic 55–70; PULSE 75–101; RESP 16; TEMP 36.4; O2SAT 98–100; BMI 20.5
[2023-08-06] MEDS: Sucralfate 1 GM Tablet PO ×3 (06:15→16:18)
[2023-08-06] MEDS: Levothyroxine 50 MCG Tablet PO (06:15)
[2023-08-06] MEDS: Albuterol 2.5 MG/3 ML VIAL.NEB. INHALATION (07:07)
[2023-08-06] MEDS: Lactulose 20 GM/30 ML UDC 10 GM PO (09:18)
[2023-08-06] MEDS: Potassium Chloride Oral Tablet 20 MEQ 40 MEQ PO ×2 (09:20→17:28)
[2023-08-06] MEDS: Loratadine 10 MG Tablet PO (09:21)
[2023-08-06] MEDS: Vitamin B Comp W-C Capsule 1 CAP PO ×2 (09:21→21:40)
[2023-08-06] MEDS: Isosorbide DN 10 MG Tablet 5 MG PO ×2 (09:22→21:40)
[2023-08-06] MEDS: Furosemide 40 MG Tablet PO ×2 (09:23→17:30)
[2023-08-06] MEDS: Amiodarone 200 MG Tablet 100 MG PO ×2 (09:24→21:40)
[2023-08-06] MEDS: Metoprolol Tartrate 25 MG Tablet PO ×2 (09:25→21:39)
[2023-08-06] MEDS: Magnesium Chloride 64 MG Delay Rel.Tablet 128 MG PO ×2 (09:26→21:39)
[2023-08-06] MEDS: Empagliflozin 10 MG Tablet PO (09:26)
[2023-08-06] MEDS: Famotidine 20 MG Tablet PO (09:27)
[2023-08-06] MEDS: Cholecalciferol (VIT D3) 25 MCG TABLET (1,000 UNITS) PO (09:28)
[2023-08-06] MEDS: Ascorbic Acid 500 MG Tablet PO (09:28)
[2023-08-06] MEDS: Finasteride 5 MG Tablet PO (09:28)
--- NOTE | 2023-08-06 11:44 | NURSING ---
PT LEFT BY WHEEL CHAIR WITH FAMILY FOR APPOINTMENT AT 1140 AM.
[2023-08-06 12:15] LABS: Anion Gap 6 (5-15); BUN 59 mg/dL (7-18); BUN/Creat Ratio 22.1 RATIO (10-20); Calcium,Total 8.4 mg/dL (8.5-10.1); Chloride 103 mmol/L (98-107); Creatinine, Serum 2.67 mg/dL (0.70-1.30); EST Glomerular Filtration Rate 25 mL/min (>60); Est Glom Filt Rate - Afr Amer 30 mL/min (>60); Estimated Creatinine Clearance 18.49 ml/min; Glucose 92 mg/dL (74-106); Potassium 4.4 mmol/L (3.5-5.1); Sodium Level 137 mmol/L (136-145)
[2023-08-06] MEDS: hydrALAZINE 50 MG Tablet PO ×3 (14:05→21:40)
--- NOTE | 2023-08-06 14:46 | NURSING ---
PATIENT RETURNED BY WHEELCHAIR FROM [facility] AT 1400
[2023-08-06] MEDS: Tamsulosin HCl 0.4 MG Capsule PO (21:40)
[2023-08-06] MEDS: LORazepam 0.5 MG Tablet PO (23:28)
[2023-08-06] MEDS: MELATONIN 3 MG TABLET PO (23:28)
[2023-08-07] VITALS (11 sets, daily range): BP systolic 93–114; BP diastolic 58–72; PULSE 70–85; RESP 16–20; TEMP 36.4–36.6; O2SAT 97–99
[2023-08-07 04:55] LABS: Absolute Lymphocyte Count 0.75 X10^3/uL (0.83-4.51); Absolute Neutrophil Count 7.1 X10^3/uL (2.0-7.7); Basophil# 0.06 X10^3/uL; Basophil% 0.7 % (0-1); Eosinophil# 0.17 X10^3/uL; Eosinophils% 1.9 % (0-5); Hematocrit 29.7 % (40-54); Lymphocyte # 0.75 X10^3/ul (0.83-4.51); Lymphocyte % 8.3 % (19-41); Mean Corp Hgb Conc 30.3 g/dL (32-36); Mean Corpuscular Hgb 30.7 pg (27.0-32.0); Mean Corpuscular Volume 101.4 fL (80-94); Monocyte# 0.82 X10^3/uL; Monocyte% 9.1 % (0-10); NRBC Flagged by Analyzer 0 % (0-5); Neutrophil # 7.14 X10^3/uL (2.7-7.7); Neutrophil % 79.4 % (47-70); POSITIVE MORPHOLOGY YES; Platelet Count 295 K/mm3 (150-450); RBC Distribution Width CV 19.5 % (11.6-14.6); RBC Distribution Width SD 72.7 fl (35.1-43.9); Red Blood Count 2.93 M/mm3 (4.6-6.2)
[2023-08-07 05:05] LABS: Differential Indicated SCAN CRITERIA MET
[2023-08-07 05:07] LABS: Anion Gap 8 (5-15); BUN 68 mg/dL (7-18); BUN/Creat Ratio 24.9 RATIO (10-20); Calcium,Total 8.2 mg/dL (8.5-10.1); Chloride 104 mmol/L (98-107); Creatinine, Serum 2.73 mg/dL (0.70-1.30); EST Glomerular Filtration Rate 24 mL/min (>60); Est Glom Filt Rate - Afr Amer 29 mL/min (>60); Estimated Creatinine Clearance 18.09 ml/min; Glucose 91 mg/dL (74-106); Potassium 4.2 mmol/L (3.5-5.1); Sodium Level 138 mmol/L (136-145)
[2023-08-07 05:30] LABS: Anisocytosis 2+; Differential Comment SCANNED
[2023-08-07] MEDS: Sucralfate 1 GM Tablet PO ×3 (05:52→16:37)
[2023-08-07] MEDS: hydrALAZINE 50 MG Tablet PO ×3 (05:52→17:21)
[2023-08-07] MEDS: Levothyroxine 50 MCG Tablet PO (05:53)
[2023-08-07] MEDS: Albuterol 2.5 MG/3 ML VIAL.NEB. INHALATION ×2 (07:19→19:50)
[2023-08-07] MEDS: Lactulose 20 GM/30 ML UDC 10 GM PO (09:12)
[2023-08-07] MEDS: Ascorbic Acid 500 MG Tablet PO (09:13)
[2023-08-07] MEDS: Potassium Chloride Oral Tablet 20 MEQ 40 MEQ PO ×2 (09:13→17:20)
[2023-08-07] MEDS: Cholecalciferol (VIT D3) 25 MCG TABLET (1,000 UNITS) PO (09:14)
[2023-08-07] MEDS: Famotidine 20 MG Tablet PO (09:15)
[2023-08-07] MEDS: Finasteride 5 MG Tablet PO (09:15)
[2023-08-07] MEDS: Magnesium Chloride 64 MG Delay Rel.Tablet 128 MG PO ×2 (09:16→21:50)
[2023-08-07] MEDS: Isosorbide DN 10 MG Tablet 5 MG PO ×2 (09:17→22:02)
[2023-08-07] MEDS: Loratadine 10 MG Tablet PO (09:18)
[2023-08-07] MEDS: Amiodarone 200 MG Tablet 100 MG PO ×2 (09:19→21:51)
[2023-08-07] MEDS: Metoprolol Tartrate 25 MG Tablet PO (09:19)
[2023-08-07] MEDS: Furosemide 40 MG Tablet PO ×2 (09:22→17:21)
[2023-08-07] MEDS: Empagliflozin 10 MG Tablet PO (09:22)
[2023-08-07] MEDS: Vitamin B Comp W-C Capsule 1 CAP PO ×2 (09:22→21:51)
[2023-08-07] MEDS: Tamsulosin HCl 0.4 MG Capsule PO (22:02)
[2023-08-08] MEDS: LORazepam 0.5 MG Tablet PO (01:40)
[2023-08-08 05:16] VITALS: BP 119/68; PULSE 76
[2023-08-08] MEDS: Levothyroxine 50 MCG Tablet PO (05:16)
[2023-08-08] MEDS: hydrALAZINE 50 MG Tablet PO (05:16)
[2023-08-08 06:24] LABS: Anion Gap 8 (5-15); BUN 71 mg/dL (7-18); Calcium,Total 8.4 mg/dL (8.5-10.1); Chloride 104 mmol/L (98-107); Creatinine, Serum 2.84 mg/dL (0.70-1.30); EST Glomerular Filtration Rate 23 mL/min (>60); Est Glom Filt Rate - Afr Amer 28 mL/min (>60); Estimated Creatinine Clearance 17.39 ml/min; Glucose 90 mg/dL (74-106); Sodium Level 138 mmol/L (136-145)
[2023-08-08] MEDS: Sucralfate 1 GM Tablet PO ×2 (06:39→10:19)
[2023-08-08 06:41] VITALS: PULSE 84; RESP 19; O2SAT 98
[2023-08-08] MEDS: Albuterol 2.5 MG/3 ML VIAL.NEB. INHALATION (06:41)
[2023-08-08 06:42] LABS: International Normalized Ratio 2.1; Prothrombin Time (Protime)PT. 23.5 SECONDS (11.7-14.9)
[2023-08-08] MEDS: Potassium Chloride Oral Tablet 20 MEQ 40 MEQ PO (08:19)
[2023-08-08] MEDS: Furosemide 40 MG Tablet PO (08:19)
[2023-08-08] MEDS: Vitamin B Comp W-C Capsule 1 CAP PO (08:21)
[2023-08-08] MEDS: Lactulose 20 GM/30 ML UDC 10 GM PO (08:21)
[2023-08-08] MEDS: Amiodarone 200 MG Tablet 100 MG PO (08:22)
[2023-08-08] MEDS: Isosorbide DN 10 MG Tablet 5 MG PO (08:22)
[2023-08-08] MEDS: Loratadine 10 MG Tablet PO (08:22)
[2023-08-08 08:23] VITALS: BP 114/63; PULSE 88
[2023-08-08] MEDS: Metoprolol Tartrate 25 MG Tablet PO (08:23)
[2023-08-08] MEDS: Empagliflozin 10 MG Tablet PO (08:23)
[2023-08-08] MEDS: Famotidine 20 MG Tablet PO (08:24)
[2023-08-08] MEDS: Magnesium Chloride 64 MG Delay Rel.Tablet 128 MG PO (08:24)
[2023-08-08] MEDS: Cholecalciferol (VIT D3) 25 MCG TABLET (1,000 UNITS) PO (08:25)
[2023-08-08] MEDS: Ascorbic Acid 500 MG Tablet PO (08:25)
[2023-08-08] MEDS: Finasteride 5 MG Tablet PO (08:25)
--- NOTE | 2023-08-08 11:15 | NURSING ---
Patient discharged to [facility] per Physicians in w/c. Sister with patient at time of discharge. Report called to [place] and number provided if any further questions.
== END 2023-08-08 11:10 | disposition intermediate care facility (04) | DRG 291 ==
PROVIDERS: Nurse Practitioner Adult Health; Admitting Provider Family Medicine Geriatric Medicine; PCP Family Medicine; Visit Provider Family Medicine Geriatric Medicine
DX: I13.0 Hypertensive heart and chronic kidney disease with heart failure and stage 1 through stage 4 chronic kidney disease, or unspecified chronic kidney disease (principal); I50.43 Acute on chronic combined systolic (congestive) and diastolic (congestive) heart failure; N17.9 Acute kidney failure, unspecified; N18.4 Chronic kidney disease, stage 4 (severe); I27.21 Secondary pulmonary arterial hypertension; J44.9 Chronic obstructive pulmonary disease, unspecified; I48.0 Paroxysmal atrial fibrillation; D64.9 Anemia, unspecified; E03.9 Hypothyroidism, unspecified; I34.0 Nonrheumatic mitral (valve) insufficiency; I25.10 Atherosclerotic heart disease of native coronary artery without angina pectoris; J30.9 Allergic rhinitis, unspecified; K21.9 Gastro-esophageal reflux disease without esophagitis; E55.9 Vitamin D deficiency, unspecified; E87.6 Hypokalemia; E78.00 Pure hypercholesterolemia, unspecified; Z95.5 Presence of coronary angioplasty implant and graft; N40.0 Benign prostatic hyperplasia without lower urinary tract symptoms; Z79.899 Other long term (current) drug therapy; Z79.890 Hormone replacement therapy
CPT/HCPCS: 36415; 80048; 80069; 85025; 85610; 87811; 94640; 97110; 97116; 97162; 97166; 97530; 97535

== ENCOUNTER → 2023-08-09 | Outpatient (REF) | payer MEDICARE, OTHER, SELFPAY ==
[2023-08-09 08:33] LABS: INR Fingerstick 2.3; Prothrombin Time Fingerstick 24.7 SEC (11.7-14.9)
== END ==
LOC: OLS.WHLEAS 05:00
PROVIDERS: PCP Family Medicine; Visit Provider Internal Medicine
DX: I34.0 Nonrheumatic mitral (valve) insufficiency (principal)
CPT/HCPCS: 36416; 85610

== ENCOUNTER → 2023-08-10 | Outpatient (REF) | payer MEDICARE, OTHER, SELFPAY ==
[2023-08-10 08:43] LABS: Absolute Lymphocyte Count 0.93 X10^3/uL (0.83-4.51); Absolute Neutrophil Count 7.7 X10^3/uL (2.0-7.7); Basophil# 0.07 X10^3/uL; Basophil% 0.7 % (0-1); Eosinophil# 0.09 X10^3/uL; Eosinophils% 0.9 % (0-5); Hematocrit 30.4 % (40-54); Hemoglobin 9.5 g/dL (13.0-16.5); Lymphocyte # 0.93 X10^3/ul (0.83-4.51); Lymphocyte % 9.7 % (19-41); Mean Corp Hgb Conc 31.3 g/dL (32-36); Mean Corpuscular Hgb 31.6 pg (27.0-32.0); Mean Platelet Vol. 10.4 fl (6.2-12.0); Monocyte# 0.76 X10^3/uL; Monocyte% 7.9 % (0-10); NRBC Flagged by Analyzer 0 % (0-5); Neutrophil # 7.69 X10^3/uL (2.7-7.7); Neutrophil % 80.2 % (47-70); POSITIVE MORPHOLOGY YES; Platelet Count 318 K/mm3 (150-450); RBC Distribution Width CV 19.8 % (11.6-14.6); RBC Distribution Width SD 72.8 fl (35.1-43.9); Red Blood Count 3.01 M/mm3 (4.6-6.2); White Blood Count 9.6 K/mm3 (4.4-11.0)
[2023-08-10 08:52] LABS: International Normalized Ratio 1.7; Prothrombin Time (Protime)PT. 20.2 SECONDS (11.7-14.9)
[2023-08-10 08:57] LABS: ALB/GLOB Ratio 0.7 RATIO (0.9-2.4); AST(SGOT) 55 U/L (15-37); Alanine Aminotransfer ALT/SGPT 68 U/L (16-61); Alkaline Phosphatase 101 U/L (45-117); Anion Gap 5 (5-15); BUN 64 mg/dL (7-18); BUN/Creat Ratio 21.5 RATIO (10-20); Calcium,Total 8.8 mg/dL (8.5-10.1); Chloride 109 mmol/L (98-107); Creatinine, Serum 2.98 mg/dL (0.70-1.30); EST Glomerular Filtration Rate 22 mL/min (>60); Est Glom Filt Rate - Afr Amer 26 mL/min (>60); Globulin 4.4 g/dL (2.2-4.2); Glucose 95 mg/dL (74-106); Magnesium 2.7 mg/dL (1.6-2.6); Potassium 4.6 mmol/L (3.5-5.1); Protein, Total 7.4 g/dL (6.4-8.2); Sodium Level 140 mmol/L (136-145)
[2023-08-10 09:13] LABS: Differential Indicated SCAN CRITERIA MET
[2023-08-10 09:53] LABS: Hemoglobin A1c 5.2 % (3.8-5.6); Vitamin D,25 Hydroxy 49.9 ng/mL
[2023-08-10 11:18] LABS: Anisocytosis 2+; Differential Comment SCANNED; Macrocytosis 1+; Microcytosis 1+
== END ==
LOC: OLS.WHLEAS 05:00
PROVIDERS: PCP Family Medicine; Visit Provider Internal Medicine
DX: E11.9 Type 2 diabetes mellitus without complications (principal); E55.9 Vitamin D deficiency, unspecified; I50.43 Acute on chronic combined systolic (congestive) and diastolic (congestive) heart failure; K59.00 Constipation, unspecified; I48.91 Unspecified atrial fibrillation
CPT/HCPCS: 36415; 80053; 82248; 82306; 83036; 83735; 85025; 85610

== ENCOUNTER → 2023-08-17 | Outpatient (REF) | payer MEDICARE, OTHER, SELFPAY ==
[2023-08-17 07:42] LABS: Absolute Lymphocyte Count 0.79 X10^3/uL (0.83-4.51); Absolute Neutrophil Count 5.7 X10^3/uL (2.0-7.7); Basophil# 0.05 X10^3/uL; Basophil% 0.7 % (0-1); Eosinophil# 0.12 X10^3/uL; Eosinophils% 1.6 % (0-5); Hematocrit 29.2 % (40-54); Hemoglobin 9.2 g/dL (13.0-16.5); Lymphocyte # 0.79 X10^3/ul (0.83-4.51); Lymphocyte % 10.8 % (19-41); Mean Corp Hgb Conc 31.5 g/dL (32-36); Mean Corpuscular Hgb 31.9 pg (27.0-32.0); Mean Corpuscular Volume 101.4 fL (80-94); Mean Platelet Vol. 10.1 fl (6.2-12.0); Monocyte# 0.65 X10^3/uL; Monocyte% 8.9 % (0-10); NRBC Flagged by Analyzer 0 % (0-5); Neutrophil # 5.69 X10^3/uL (2.7-7.7); Neutrophil % 77.5 % (47-70); POSITIVE MORPHOLOGY YES; Platelet Count 315 K/mm3 (150-450); RBC Distribution Width SD 73.5 fl (35.1-43.9); Red Blood Count 2.88 M/mm3 (4.6-6.2); White Blood Count 7.3 K/mm3 (4.4-11.0)
[2023-08-17 07:44] LABS: Differential Indicated SCAN CRITERIA MET
[2023-08-17 07:55] LABS: International Normalized Ratio 2.4
[2023-08-17 08:04] LABS: Anion Gap 8 (5-15); BUN 67 mg/dL (7-18); Calcium,Total 8.6 mg/dL (8.5-10.1); Chloride 107 mmol/L (98-107); Creatinine, Serum 3.73 mg/dL (0.70-1.30); EST Glomerular Filtration Rate 17 mL/min (>60); Est Glom Filt Rate - Afr Amer 20 mL/min (>60); Glucose 93 mg/dL (74-106); Potassium 4.3 mmol/L (3.5-5.1); Sodium Level 139 mmol/L (136-145)
[2023-08-17 08:38] LABS: Anisocytosis 2+
== END ==
LOC: OLS.WHLEAS 05:00
PROVIDERS: PCP Family Medicine; Visit Provider Internal Medicine
DX: I50.43 Acute on chronic combined systolic (congestive) and diastolic (congestive) heart failure (principal); K59.00 Constipation, unspecified; E11.9 Type 2 diabetes mellitus without complications; E55.9 Vitamin D deficiency, unspecified
CPT/HCPCS: 36415; 80048; 85025; 85610

== ENCOUNTER 2023-08-18 13:42 | Observation (INO) | payer MEDICARE, OTHER, SELFPAY ==
[2023-08-18] VITALS (10 sets, daily range): BP systolic 81–120; BP diastolic 57–76; PULSE 70–103; RESP 13–45; TEMP 36.4–36.6; O2SAT 95–100; BMI 22.1; BMI 20.1
[2023-08-18] MEDS: 0.9% Normal Saline (500mL Bag) 500 ML 1000 ML IV (14:12)
--- NOTE | 2023-08-18 14:13 | EKG12_ITS ---
Test Reason : DYSRHYTHMIA Blood Pressure : / mmHG Vent. Rate : 088 BPM Atrial Rate : 000 BPM P-R Int : 000 ms QRS Dur : 106 ms QT Int : 408 ms P-R-T Axes : 000 -23 009 degrees QTc Int : 493 ms Poor data quality, interpretation may be adversely affected Atrial fibrillation with premature ventricular or aberrantly conducted complexes Incomplete right bundle branch block Prolonged QT Abnormal ECG Confirmed by MARCE KASPER, ADAM ([id number]), assistant film editor CIPRIANO GATES ([id number]) on 08/19/2023 2:05:32 PM Referred By: LORIE Confirmed By:ADAM ZHENG MD
--- NOTE | 2023-08-18 14:20 | EX.ED.DYSGE1 ---
HPI History of Present Illness Chief Complaint: Nausea/Vomiting/Diarrhea Informant: patient Narrative Narrative: Patient states he was sent in from the retirement secondary to bad kidneys. He states he has had some mild nausea and a stomach ache the past couple of days. He had 1 episode of vomiting after taking some pills. He reports having formed stool with no diarrhea. He states he has been trying to eat and drink. [facility] Medical History Acute constipation Acute exacerbation of chronic low back pain Acute gastrointestinal bleeding Acute kidney injury Acute kidney injury superimposed on chronic kidney disease Ambulates with cane Anemia Anxiety Arthritis Atherosclerotic heart disease of [place] coronary artery without angina pectoris Atrial fibrillation Atypical atrial flutter (12/2020) Back pain Benign prostatic hyperplasia BPH (benign prostatic hyperplasia) Cancer Cardiology follow-up encounter Chronic anemia Chronic heart failure with preserved ejection fraction (HFpEF) Chronic kidney disease Chronic pain Chronic renal insufficiency Colitis COPD (chronic obstructive pulmonary disease) CPAP (continuous positive airway pressure) dependence Debility Diarrhea Difficulty chewing Dysphagia Easy bruising Elevated LFTs Elevated liver enzymes Essential (primary) hypertension Excessive bleeding Gastric reflux GI bleed (2012) Hearing loss, left Hearing loss, right Hiatal hernia High cholesterol History of colon polyps History of diverticulitis History of echocardiogram History of edema History of heart attack History of hyperthyroidism History of leukemia History of pain when walking History of renal disease History of stress test HLD (hyperlipidemia) Hypertension Hypothyroidism Irregular heart beat Kidney disease Kidney stones Myocardial infarct Nausea and vomiting Non-rheumatic tricuspid valve insufficiency Non-smoker Nonrheumatic mitral (valve) insufficiency 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 Osteoarthritis Paroxysmal atrial fibrillation Rheumatoid arthritis Secondary pulmonary arterial hypertension Sleep apnea Sleep apnea Stage 3b chronic kidney disease Thoracic aortic aneurysm (TAA) Thyroid disease Wears glasses Home Medications tamsulosin 0.4 mg capsule 0.4 mg PO QHS bladder 11/18/21 [History Last Taken 06/20/23] vitamin B complex 1 cap PO BID supplement 05/01/22 [History Last Taken 02/12/23] ascorbic acid (vitamin C) 500 mg tablet 500 mg PO DAILY supplement 07/20/22 [History Last Taken 06/21/23] finasteride 5 mg tablet 5 mg PO DAILY prostate 08/05/22 [History Last Taken 06/21/23] cholecalciferol (vitamin D3) 25 mcg (1,000 unit) capsule (Vitamin D3) 1,000 unit PO DAILY supplement 02/19/23 [History Last Taken Unknown] polyethylene glycol 3350 17 gram oral powder packet 17 g PO DAILY constipation 02/19/23 [History Last Taken Unknown] amiodarone 100 mg tablet 100 mg PO BID heart 02/21/23 [History Last Taken 06/21/23] sucralfate 1 gram tablet 1 g PO TID@0700,1100,1600 stomach 30 days #90 tabs 03/21/23 [Rx Last Taken 06/21/23] loratadine 10 mg tablet (Claritin) 10 mg PO DAILY allergies 06/16/23 [History Last Taken Unknown] warfarin 3 mg tablet (Jantoven) 3 mg PO SuTuThSa@1700 blood thinner #0 tabs 06/21/23 [Rx Last Taken 06/19/23] warfarin 4 mg tablet See Rx Instructions .Route .COMPLEX blood thinner #60 tabs 06/21/23 [Rx Last Taken 06/20/23] metoprolol tartrate 25 mg tablet 25 mg PO BID BP #0 tabs 07/06/23 [Rx Last Taken Unknown] empagliflozin 10 mg tablet (Jardiance) 10 mg PO DAILY Diabetes #0 tabs 07/22/23 [Rx Last Taken Unknown] hydralazine 50 mg tablet 50 mg PO 4X/DAY BP #0 tabs 07/22/23 [Rx Last Taken Unknown] nitroglycerin 0.4 mg sublingual tablet 0.4 mg sublingual Q5M PRN Cardiac/Chest Pain #0 tabs 07/22/23 [Rx Last Taken Unknown] acetaminophen 500 mg tablet 1,000 mg (2 x 500 mg) PO Q6H PRN PRN PAIN 1-10 #0 tabs 08/04/23 [Rx Last Taken Unknown] acidophilus 25 million cell-pectin, citrus 100 mg tablet 2 tab PO BID #0 tabs 08/04/23 [Rx Last Taken Unknown] albuterol sulfate 2.5 mg/3 mL (0.083 %) solution for nebulization 2.5 mg (3 mL) inhalation Q6HWA.RT #0 mL 08/04/23 [Rx Last Taken Unknown] famotidine 20 mg tablet 20 mg PO DAILY #0 tabs 08/04/23 [Rx Last Taken Unknown] furosemide 40 mg tablet 40 mg PO BIDCM #0 tabs 08/04/23 [Rx Last Taken Unknown] isosorbide dinitrate 10 mg tablet 5 mg (1/2 x 10 mg) PO BID #0 tabs 08/04/23 [Rx Last Taken Unknown] lactulose 20 gram/30 mL oral solution 10 g (15 mL) PO DAILY #0 mL 08/04/23 [Rx Last Taken Unknown] levothyroxine 50 mcg tablet 50 mcg PO 0600 #0 tabs 08/04/23 [Rx Last Taken Unknown] lorazepam 0.5 mg tablet 0.5 mg PO Q6H PRN PRN ANXIETY/RESTLESSNESS 3 days #12 tabs 08/04/23 [Rx Last Taken Unknown] magnesium chloride 64 mg (magnesium chloride) tablet,delayed release (Mag 64) 128 mg (2 x 64 mg) PO BID #0 tabs 08/04/23 [Rx Last Taken Unknown] melatonin 3 mg tablet 3 mg PO QHS PRN PRN Insomnia #0 tabs 08/04/23 [Rx Last Taken Unknown] potassium chloride 20 mEq tablet,extended release(part/cryst) 40 meq (2 x 20 mEq) PO BIDCM #0 tabs 08/04/23 [Rx Last Taken Unknown] sodium chloride 0.65 % nasal spray aerosol (Deep Sea Nasal) 2 spray NASAL TID PRN PRN NASAL DRYNESS #0 mL 08/04/23 [Rx Last Taken Unknown] Allergy/AdvReac Type Severity Reaction Status Date / Time diclofenac Allergy rash Verified 07/27/23 13:50 prednisone Allergy Rash Verified 07/27/23 13:50 Family History Father Cancer Prostate cancer Mother Hypertension Sister Hypertension Surgical History History of back surgery History of back surgery History of cardiac catheterization History of cardioversion (06/18/19) History of coronary artery stent placement (08/04/00) History of electrophysiologic study (08/08/00) History of esophagogastroduodenoscopy (EGD) History of hemorrhoidectomy History of hernia repair History of left heart catheterization (07/17/12) History of Zenaida fundoplication History of radiofrequency ablation procedure for cardiac arrhythmia (11/11/11) Social History household members: none Smoking Status: Never smoker alcohol intake: never substance use type: does not use caffeine: No ROS ROS ED Constitutional Constitutional ED: Denies chills or fever(s) Eyes Eyes: Denies discharge from eye(s) ENT ENT ED: Denies discharge from eye(s), rhinorrhea or sore throat Cardiovascular Cardiovascular: Denies chest pain or palpitations Respiratory/Chest Respiratory/Chest: Denies cough or dyspnea Gastrointestinal Gastrointestinal: Reports abdominal pain, nausea and vomiting; Denies diarrhea Genitourinary Genitourinary ED: Denies dysuria Musculoskeletal Musculoskeletal: Denies back pain or extremity pain Integumentary Denies Abrasions or rash Neurologic Neurologic: Reports weakness; Denies headache(s) Psychiatric Psychiatric: Denies anxiety or depression Allergic/Immunologic Allergic/Immunologic ED: Denies lip swelling or urticaria EXAM Physical Exam Const Vital Signs: 08/18/23 13:48 08/18/23 13:50 08/18/23 13:50 Temperature 97.8 F 97.8 F Temperature Source Temporal Temporal Pulse Rate 103 H 103 H 103 H Respiratory Rate 14 14 Respiratory Pattern Blood Pressure 81/57 L 81/57 L 81/57 L Blood Pressure Mean 65 65 65 Pulse Ox 95 95 Oxygen Delivery Method Room Air Room Air 08/18/23 14:06 08/18/23 14:05 08/18/23 14:34 Temperature Temperature Source Pulse Rate 70 83 Respiratory Rate 13 21 H Respiratory Pattern Normal Blood Pressure 99/65 95/61 Blood Pressure Mean 76 72 Pulse Ox 95 97 Oxygen Delivery Method Room Air 08/18/23 15:36 Temperature Temperature Source Pulse Rate 89 Respiratory Rate 45 H Respiratory Pattern Blood Pressure 106/74 Blood Pressure Mean 84 Pulse Ox 96 Oxygen Delivery Method Positive well nourished and well developed General Appearance ED: well developed HEENT Reports moist mucous membranes Eyes EOMs intact bilaterally Chest Wall inspection of chest normal and palpation of chest normal Resp normal respiratory effort and clear to auscultation bilaterally Cardio Rhythm: abnormal rhythm irregularly irregular GI non-tender Auscultation: hypoactive bowel sounds Palpation: soft Neuro oriented x3 Neuro Narrative: No focal neurologic deficits. 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 Blood pressure low on arrival. Patient given 500 cc IV fluid bolus followed by IV fluids at 150 an hour. Patient does have history of renal problems as well as CHF therefore will not receive a large fluid bolus. Labwork obtained to evaluate for leukocytosis, anemia, and electrolyte derangement. Chest x-ray obtained to evaluate for acute lung pathology, cardiac size, or mediastinal abnormality. Urinalysis obtained to evaluate for infection/hematuria. History & Record Review Discussion w/independent historian: Patient Additional record(s) reviewed:: Prior inpatient record, Prior ED visit and Prior labs Lab Data Attestation: I reviewed the patient's lab results. Labs: Laboratory Results - last 24 hr 08/18/23 08/18/23 13:38 15:30 WBC 9.4 RBC 3.49 L Hgb 10.8 L Hct 35.7 L MCV 102.3 H MCH 30.9 MCHC 30.3 L RDW Std Deviation 76.2 H RDW Coeff of Pablo 20.0 H Plt Count 420 MPV 10.1 Immature Gran % (Auto) 0.700 Neut % (Auto) 82.8 H Lymph % (Auto) 6.0 L [place] % (Auto) 8.4 Eos % (Auto) 1.2 Baso % (Auto) 0.9 Absolute Neuts (auto) 7.8 H Absolute Lymphs (auto) 0.56 L Nucleated RBC % 0 Differential Comment SCANNED Anisocytosis 2+ Microcytosis 1+ Macrocytosis 1+ PT 26.5 H INR 2.4 Sodium 138 Potassium 5.2 H Chloride 104 Carbon Dioxide 26.0 Anion Gap 8 BUN 68 H Creatinine 3.58 H Est GFR (MDRD) Af Amer 21 L Est GFR (MDRD) Non-Af 17 L BUN/Creatinine Ratio 19.0 Glucose 120 H Lactic Acid 1.0 Calcium 8.8 Total Bilirubin 0.70 Direct Bilirubin 0.32 H AST 50 H ALT 62 H Alkaline Phosphatase 97 Total Protein 8.3 H Albumin 3.7 Globulin 4.6 H Urine Color Yellow Urine Clarity Clear Urine pH 6.0 Ur Specific [place] 1.010 Urine Protein Negative Urine Glucose (UA) Normal Urine Ketones Negative Urine Occult Blood Negative Urine Nitrite Negative Urine Bilirubin Negative Urine Urobilinogen Normal Ur Leukocyte Esterase Negative Urine RBC 0 SEEN Urine WBC 0 SEEN Ur Squamous Epith Cells 0 SEEN Urine Bacteria 0 SEEN Urine Mucus 0 SEEN Radiography Chest X-Ray - ED: 1 View, Read by ED Physician and Chronic Changes Diagnostic Testing: Clinical Impression(s) from Imaging Studies Chest X-Ray 08/18/23 15:00 IMPRESSION: Mild residual increased linear markings at the right lung base suggestive of scarring. The left lung is clear. Electronically Signed: Wilfred Milligan MD at 15:24 EST , EKG Initial EKG: Attestation: I personally reviewed and interpreted this EKG as follows: Interpretation: Atrial Fibrillation (Atrial fibrillation at 88 bpm. Occasional PACs. No acute ischemia.) Treatment and Re-Evaluation :: CBC was a white count of 9.4 with a hemoglobin of 10.8. This is actually higher than his labs yesterday. INR is therapeutic at 2.4. Chemistry studies reveal a potassium of 5.2. BUN is 68 and creatinine is 3.58. Creatinine yesterday was 3.7. It appears his baseline is around 2.2-2.5. LFTs reveal slight elevation in AST of 50 and ALT of 62. Urinalysis is unremarkable. Lactic acid is normal. Patient received a 500 cc IV fluid bolus initially. Blood pressure did improve but then did drop back into the high 80s. He was then given a 1 L IV fluid bolus. His blood pressure is currently 99/65. Nurse practitioner from the [facility] reportedly called and advised with the worsening renal function and history of CHF they did not feel comfortable hydrating him there. They do feel he will require observation for hydration and monitoring of his respiratory status. I will speak with the hospitalist. Discharge Plan Triage Chief Complaint: Nausea/Vomiting/Diarrhea Other Complaint: Weakness ED Provider: Dior Diaz Dx/Rx/DC Orders Clinical Impression: Acute kidney injury superimposed on chronic kidney disease, Hypotension Prescriptions: No Action tamsulosin 0.4 mg capsule 0.4 mg PO QHS ascorbic acid (vitamin C) 500 mg tablet 500 mg PO DAILY finasteride 5 mg tablet 5 mg PO DAILY vitamin B complex Capsule 1 cap PO BID polyethylene glycol 3350 17 gram Powder In Packet 17 g PO DAILY cholecalciferol (vitamin D3) [Vitamin D3] 25 mcg (1,000 unit) Capsule 1,000 unit PO DAILY amiodarone 100 mg tablet 100 mg PO BID sucralfate 1 gram Tablet 1 g PO TID@0700,1100,1600 30 Days Qty: 90 0RF metoprolol tartrate 25 mg Tablet 25 mg PO BID Qty: 0 0RF nitroglycerin 0.4 mg Tablet, Sublingual 0.4 mg sublingual Q5M PRN (Reason: Cardiac/Chest Pain) Qty: 0 0RF hydralazine 50 mg Tablet 50 mg PO 4X/DAY Qty: 0 0RF Jardiance 10 mg Tablet 10 mg PO DAILY Qty: 0 0RF loratadine [Claritin] 10 mg tablet 10 mg PO DAILY warfarin [Jantoven] 3 mg Tablet 3 mg PO SuTuThSa@1700 Qty: 0 0RF warfarin 4 mg tablet See Rx Instructions .Route .COMPLEX Qty: 60 0RF Protocol: Dose Management Condition: Tuesday Dose/Route: 4 mg Instruction: 1 x 4 mg tablet Condition: Tuesday Dose/Route: 4 mg Instruction: 1 x 4 mg tablet Condition: Tuesday Dose/Route: 4 mg Instruction: 1 x 4 mg tablet Condition: Tuesday Dose/Route: 4 mg Instruction: 1 x 4 mg tablet Condition: Dose/Route: 2 mg Instruction: 1 x 2 mg tablet Condition: Tuesday Dose/Route: 2 mg Instruction: 1 x 2 mg tablet Condition: Tuesday Dose/Route: 2 mg Instruction: 1 x 2 mg tablet Protocol Text: Adjustment Start Date: Tuesday06/17/23 INR Value: 1.7 INR Date: 06/17/23 Recheck Date: 06/24/23 Rx Instructions: 4mg Tue, Tue, Tue. 3mg Tue, , , Sat orally; furosemide 40 mg Tablet 40 mg PO BIDCM Qty: 0 0RF isosorbide dinitrate 10 mg Tablet 5 mg PO BID Qty: 0 0RF albuterol sulfate 2.5 mg /3 mL (0.083 %) Solution For Nebulization 2.5 mg inhalation Q6HWA.RT Qty: 0 0RF melatonin 3 mg Tablet 3 mg PO QHS PRN PRN (Reason: Insomnia) Qty: 0 0RF acetaminophen 500 mg Tablet 1,000 mg PO Q6H PRN PRN (Reason: PAIN 1-10) Qty: 0 0RF potassium chloride 20 mEq Tablet,Er Particles/Crystals 40 meq PO BIDCM Qty: 0 0RF famotidine 20 mg Tablet 20 mg PO DAILY Qty: 0 0RF lorazepam 0.5 mg Tablet 0.5 mg PO Q6H PRN PRN (Reason: ANXIETY/RESTLESSNESS) 3 Days Qty: 12 0RF levothyroxine 50 mcg Tablet 50 mcg PO 0600 Qty: 0 0RF Deep Sea Nasal 0.65 % Aerosol,[place] 2 spray NASAL TID PRN PRN (Reason: NASAL DRYNESS) Qty: 0 0RF acidophilus-pectin, citrus 25 million cell -100 mg Tablet 2 tab PO BID Qty: 0 0RF Mag 64 64 mg Tablet,Delayed Release (Dr/Ec) 128 mg PO BID Qty: 0 0RF lactulose 20 gram/30 mL Solution 10 g PO DAILY Qty: 0 0RF Primary Care Provider: César Chinchilla Referrals: César Chinchilla MD [Primary Care Provider] - Disposition Disposition: Acute Care Hospital [facility]
[2023-08-18 14:27] LABS: Absolute Lymphocyte Count 0.56 X10^3/uL (0.83-4.51); Absolute Neutrophil Count 7.8 X10^3/uL (2.0-7.7); Basophil# 0.08 X10^3/uL; Basophil% 0.9 % (0-1); Eosinophil# 0.11 X10^3/uL; Eosinophils% 1.2 % (0-5); Hematocrit 35.7 % (40-54); Hemoglobin 10.8 g/dL (13.0-16.5); Lymphocyte # 0.56 X10^3/ul (0.83-4.51); Mean Corp Hgb Conc 30.3 g/dL (32-36); Mean Corpuscular Hgb 30.9 pg (27.0-32.0); Mean Corpuscular Volume 102.3 fL (80-94); Mean Platelet Vol. 10.1 fl (6.2-12.0); Monocyte# 0.79 X10^3/uL; Monocyte% 8.4 % (0-10); NRBC Flagged by Analyzer 0 % (0-5); Neutrophil # 7.76 X10^3/uL (2.7-7.7); Neutrophil % 82.8 % (47-70); POSITIVE DIFFERENTIAL YES; POSITIVE MORPHOLOGY YES; Platelet Count 420 K/mm3 (150-450); RBC Distribution Width SD 76.2 fl (35.1-43.9); Red Blood Count 3.49 M/mm3 (4.6-6.2); White Blood Count 9.4 K/mm3 (4.4-11.0)
[2023-08-18 14:41] LABS: Differential Indicated SCAN CRITERIA MET
[2023-08-18 14:42] LABS: AST(SGOT) 50 U/L (15-37); Alanine Aminotransfer ALT/SGPT 62 U/L (16-61); Albumin, Serum 3.7 g/dL (3.2-5.0); Alkaline Phosphatase 97 U/L (45-117); Anion Gap 8 (5-15); BUN 68 mg/dL (7-18); Bilirubin, Direct 0.32 mg/dL (0.00-0.30); Calcium,Total 8.8 mg/dL (8.5-10.1); Chloride 104 mmol/L (98-107); Creatinine, Serum 3.58 mg/dL (0.70-1.30); EST Glomerular Filtration Rate 17 mL/min (>60); Est Glom Filt Rate - Afr Amer 21 mL/min (>60); Globulin 4.6 g/dL (2.2-4.2); Glucose 120 mg/dL (74-106); Potassium 5.2 mmol/L (3.5-5.1); Protein, Total 8.3 g/dL (6.4-8.2); Sodium Level 138 mmol/L (136-145)
[2023-08-18 14:52] LABS: Anisocytosis 2+; Differential Comment SCANNED; Macrocytosis 1+; Microcytosis 1+
--- NOTE | 2023-08-18 15:00 | RAD_ITS ---
STUDY: X-RAY CHEST REASON FOR EXAM: Male, 83 years old. Weakness TECHNIQUE: Single AP portable view of the chest. COMPARISON: Comparison is made with prior study dated July 19, 2023. FINDINGS: EKG electrodes are seen. Minimal residual interstitial markings are seen at the right lung base suggestive of linear atelectasis and/or scarring. There is no demonstrated pleural abnormality. There is mild cardiac enlargement. Normal mediastinum and nasrin. Normal visualized pulmonary arteries. There is atherosclerotic tortuosity of the aortic arch and descending thoracic aorta. There are diffuse degenerative changes of the visualized thoracic spine. Prior multilevel vertebroplasty. Normal visualized ribs, clavicles, and shoulders. There is no demonstrated abnormality of the visualized soft tissue structures of the upper abdomen. RAD/Chest 1 View (Portable) IMPRESSION: Mild residual increased linear markings at the right lung base suggestive of scarring. The left lung is clear. Electronically Signed: Wilfred Milligan MD at 15:24 EST ,
--- OUTSIDE RECORDS SUMMARY | 2023-08-18 15:09 | XMS RPT_ITS | CCD ---
Author Name Unknown Address [address] [place] [address] Organization [facility] Care Team Providers Care Inventory Coordinator Name Role Phone Marcus Samuel Armand Primary Care Provider Massimo Hurtado (Historic) Primary Care Prov ider Karo Higgins (Retired) Primary Care Provider Joanne Chu Primary Care Provider Allergies Allergy Classification Reported Allergen(s) Allergy Type Date of Onset Reaction(s) Facility (1 source) Adhesive agent Propensity to adverse reactions 05-07-2009 [facility] (1 source) Grass pollen Propensity to adverse reactions 06-24-2005 [facility] (1 source) predniSONE Drug Allergy 07-11-2012 Rash [facility] (1 source) Ragweed Propensity to adverse reactions 06-24-2005 [facility] Medications Completed/Discontinued Medications Medication Drug Class(es) Dates Sig (Normalized) Sig (Original) fluticasone propionate 0.05 mg/actuat metered dose nasal spray (1 source) Corticosteroid Start: 05-27-2005 FLONASE 50 MCG/ACTUATION NASL SPRA prn 0 05/27/2005 Active Problems Active Problems Problem Classification Problem Date Documented Date Episodic/Chronic Cardiac dysrhythmias (1 source) Atrial fibrillation; Translations: [Atrial fibrillation] Onset: 06-18-2005 06-18-2005 Chronic Coronary atherosclerosis and other heart disease (1 source) Coronary atherosclerosis; Translations: [Coronary atherosclerosis of unspecified type of vessel, poarch or graft] Onset: 06-18-2005 06-18-2005 Chronic Disorders of lipid metabolism (1 source) Hyperlipidemia; Translations: [Other and unspecified hyperlipidemia] Onset: 06-18-2005 06-18-2005 Chronic Diverticulosis and diverticulitis (1 source) Diverticulosis of colon; Translations: [Diverticulosis of colon] Onset: 08-01-2009 08-01-2009 Esophageal disorders (3 sources) Milner's esophagus; Translations: [Gastroesophageal reflux disease] Onset: 07-09-2005 09-10-2009 Chronic Esophageal disorders (2 sources) Esophagitis; Translations: [Esophagitis] Onset: 07-30-2005 07-30-2005 Episodic Essential hypertension (1 source) Benign essential hypertension; Translations: [Essential hypertension, benign] Onset: 06-18-2005 06-18-2005 Chronic Gastritis and duodenitis (2 sources) Acute gastritis; Translations: [Acute gastritis without mention of hemorrhage] Onset: 07-30-2005 07-30-2005 Episodic Hyperplasia of prostate (2 sources) Benign prostatic hypertrophy with outflow obstruction; Translations: [Benign prostatic hyperplasia] Onset: 05-26-2009 05-26-2009 Chronic Nutritional deficiencies (1 source) Iron deficiency; Translations: [Iron deficiency] Onset: 04-16-2013 04-16-2013 Chronic Osteoarthritis (1 source) Localized, secondary osteoarthritis of the ankle and/or foot; Translations: [Secondary localized osteoarthrosis, ankle and foot] Onset: 07-07-2005 07-07-2005 Chronic Other diseases of bladder and urethra (1 source) Bladder neck obstruction; 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] Onset: 12-24-2009 12-24-2009 Chronic Thyroid disorders (1 source) Thyrotoxicosis; Translations: [Thyrotoxicosis without mention of goiter or other cause, without mention of thyrotoxic crisis or storm] Onset: 06-18-2005 06-18-2005 Chronic Unclassified (1 source) Polypharmacy ; Translations: [Polypharmacy] Onset: 10-21-2011 10-21-2011 Unclassified (1 source) Acquired unequal leg length; Translations: [Unequal leg length (acquired)] Onset: 07-07-2005 07-07-2005 Past or Other Problems Problem Classification Problem Date Documented Da te Episodic/Chronic Abdominal hernia (2 sources) Right inguinal hernia ; Translations: [Diaphragmatic hernia] Onset: 07-30-2005 08-20-2015 Episodic Abdominal pain (1 source) Abdominal pain; Translations: [Abdominal pain, unspecified site] Onset: 07-08-2009 07-08-2009 Episodic Deficiency and other anemia (1 source) Anemia; Translations: [Anemia] Onset: 03-14-2013 03-14-2013 Episodic Gastrointestinal hemorrhage (1 source) Rectal hemorrhage; Translations: [Rectal bleeding] Onset: 05-14-2014 05-14-2014 Episodic Genitourinary symptoms and ill-defined conditions (3 sources) Nocturia; Translations: [Urgent desire to urinate] Onset: 10-21-2011 10-21-2011 Episodic Residual codes; unclassified (2 sources) Family history of prostate cancer; Translations: [Family history of prostate cancer] Onset: 06-18-2005 10-21-2011 Episodic Spondylosis; intervertebral disc disorders; other back problems (2 sources) Low back pain; Translations: [Spinal stenosis of lumbar region] Onset: 06-18-2005 06-18-2005 Episodic Results Test Name Value Interpretation Reference Range Facil ity Encounters Encounter Date Encounter Type Care Provider Facility Start: 07-02-2008 End: 07-02-2008 Patient encounter procedure Eugenio Pichardo Work Phone: [facility] Start: 07-02-2008 Results Only Eugenio Pichardo Work Phone: [facility] Procedures Date Procedure Procedure Detail Performing Clinician Start: 05-16-2014 Colonoscopy Eugenio hernandez Start: 07-03-2008 CONVERTED SURGICAL PATHOLOGY Eugenio Pichardo Work Phone: Start: 07-02-2008 CONVERTED SURGICAL PATHOLOGY Eugenio Indio Pichardo Work Phone: Plan of Treatment Date Care Activity Detail Author Start: 04-29-2020 Influenza vaccination INFLUENZA (#1) [facility] Start: 05-16-2017 Colonoscopy COLONOSCOPY [facility] Start: 09-29-2016 LIPID SCREEN LIPID SCREEN [facility] Start: 08-03-2016 DIABETES SCREEN DIABETES SCREEN [facility] Start: 2006 ADVANCE DIRECTIVE DISCUSSION ADVANCE DIRECTIVE DISCUSSION [facility] Start: 1991 SHINGRIX VACCINE (1 of 2) MORELOS GRIX VACCINE (1 of 2) [facility] Start: 1960 Urine microalbumin profile DTAP,TDAP ,TD (1 - Tdap) [facility] Start: 1959 ANNUAL PCP TEAM ACADEMIC TUTOR AVRIL DISEASE VISIT ANNUAL PCP TEAM CHRONIC DISEASE VISIT [facility] Start: 1959 BP CONTROLLED (<130/80) BP CONTROLLE D (<130/80) [facility] Start: 1959 Hepatitis B surface antibody level LDL CHOLESTEROL [facility] Start: 1959 HEPATITIS C SCREENING HEPATITIS C SC JONI [facility] Immunizations Immunization Date Immunization Notes Care Provider Abiodun isbell 07-06-2005 influenza virus vacc ine, unspecified formulation Eugenio Pichardo [facility] Payers Date Payer Category Payer Medicare MEDICARE MEDICAR E B [id number] 2006-Present [place], [place] Medicare [id number] 2005 Private Health Insurance [employer] PPO [id number] 2005-Present PPO [id number] Social History Date Type Detail Facility Start: 09-02-2005 Tobacco smoking stat us MEIS Never smoker [facility] Start: 09-02-2005 Alcohol intake Current non-dr supervisory it specialist of alcohol (finding) [facility] Sex Assigned At Not on file [facility] Additional Source Comments Source Comments (unrecognize d section and content) In the event this informatio n is protected by the Federal Confidentiality of Alcohol and Drug Abuse Patient Records regulations: The Federal rules restrict any use of the information to criminally investigate or prosecute any alcohol or drug abuse patient.[facility] FOR RECORDS PERTAINING TO PATIENTS WHO ARE OR HAVE BEEN ENROLLED IN A CHEMICAL DEPENDENCY/SUBSTANCEABUSE PROGRAM, SOME INFORMATION MAY BE OMITTED. This clinical summary was aggregated from multiple sources. Caution should be exercised in using it in the provision of clinical care. This summary normalizes information from multiple sources, and as a consequence, information in this document may materially change the coding, format and clinical context of patient data. In addition, data may be omitted in some cases. CLINICAL DECISIONS SHOULD BE BASED ON THE PRIMARY CLINICAL RECORDS. [facility] [employer] [facility]. provides no warranty or guarantee of the accuracy or completeness of information in this document.
[2023-08-18 15:37] LABS: Bacteria 0 SEEN /hpf (None Seen); Mucous, Urine 0 SEEN /hpf (<or=2+); Red Blood Cells-Urine 0 SEEN /hpf (0-5); Squamous Epithelial Cells - UA 0 SEEN /hpf (0-5); White Blood Cells 0 SEEN /hpf (0-5)
[2023-08-18 16:03] LABS: Color, Urine Yellow (Yellow); Glucose, Dipstick Normal (Normal); Ketone-Dipstick Negative (Negative); Leukocyte Esterase-Dipstick Negative /ul (Negative); Nitrite-Dipstick Negative (Negative); Occult Blood-Urine Negative /ul (Negative); Protein-Dipstick Negative (Negative); Urine Bilirubin Dipstick Negative (Negative); Urine Clarity Clear (Clear); Urine Urobilinogen Normal (Normal)
[2023-08-18 16:34] LABS: International Normalized Ratio 2.4; Prothrombin Time (Protime)PT. 26.5 SECONDS (11.7-14.9)
[2023-08-18] MEDS: 0.9% Normal Saline (1000mL) 1,000 ML 999 ML IV (17:11)
--- OUTSIDE RECORDS SUMMARY | 2023-08-18 17:23 | XMS RPT_ITS | CCD ---
Author Name Unknown Address [address] [place] [address] Organization [facility] Care Team Providers Care Telecommunications Network Planner Name Role Phone Marcus Samuel Armand Primary Care Provider [phone] Massimo Hurtado (Historic) Primary Care Prov ider Karo Higgins (Retired) Primary Care Provider Joanne Chu Primary Care Provider Allergies Allergy Classification Reported Allergen(s) Allergy Type Date of Onset Reaction(s) Facility (1 source) Adhesive agent Propensity to adverse reactions 05-07-2009 [facility] (1 source) Grass pollen Propensity to adverse reactions 06-24-2005 [facility] (1 source) predniSONE Drug Allergy 07-11-2012 Rash [facility] (1 source) Ragweed Propensity to adverse reactions 06-24-2005 [facility] Medications Completed/Discontinued Medications Medication Drug Class(es) [...] [Coronary atherosclerosis of unspecified type of vessel, [place] or graft] Onset: 06-18-2005 06-18-2005 Chronic Disorders [...] Patient encounter procedure Eugenio Pichardo Work Phone: [facility] Start: 07-02-2008 Results Only Eugenio Pichardo Work Phone: [facility] Procedures Date Procedure Procedure Detail Performing Clinician Start: 05-16-2014 Colonoscopy Eugenio hernandez Start: 07-03-2008 CONVERTED SURGICAL PATHOLOGY Eugenio Pichardo Work Phone: Start: 07-02-2008 CONVERTED SURGICAL PATHOLOGY Eugenio Indio Pichardo Work Phone: Plan of Treatment Date Care Activity Detail Author Start: 04-29-2020 Influenza vaccination INFLUENZA (#1) [facility] Start: 05-16-2017 Colonoscopy COLONOSCOPY [facility] Start: 09-29-2016 LIPID SCREEN LIPID SCREEN [facility] Start: 08-03-2016 DIABETES SCREEN DIABETES SCREEN [facility] Start: 2006 ADVANCE DIRECTIVE DISCUSSION ADVANCE DIRECTIVE DISCUSSION [facility] Start: 1991 SHINGRIX VACCINE (1 of 2) MORELOS GRIX VACCINE (1 of 2) [facility] Start: 1960 Urine microalbumin profile DTAP,TDAP ,TD (1 - Tdap) [facility] Start: 1959 ANNUAL PCP TEAM MANAGER ENDOSCOPY AVRIL DISEASE VISIT ANNUAL PCP TEAM CHRONIC DISEASE VISIT [facility] Start: 1959 BP CONTROLLED (<130/80) BP CONTROLLE D (<130/80) [facility] Start: 1959 Hepatitis B surface antibody level LDL CHOLESTEROL [facility] Start: 1959 HEPATITIS C SCREENING HEPATITIS C SC JONI [facility] Immunizations Immunization Date Immunization Notes Care Provider Abiodun isbell 07-06-2005 influenza virus vacc ine, unspecified formulation Eugenio Pichardo [facility] Payers Date Payer Category Payer Medicare MEDICARE MEDICAR E B [id number] 2006-Present [place], [place] Medicare [id number] 2005 Private Health Insurance [employer] PPO [id number] 2005-Present PPO [id number] Social History Date Type Detail Facility Start: 09-02-2005 Tobacco smoking stat us IDIS Never smoker [facility] Start: 09-02-2005 Alcohol intake 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 [facility] [facility]. provides no warranty or guarantee of the accuracy or completeness of information in this document.
--- NOTE | 2023-08-18 18:11 | PCM.HP.STD ---
[facility] - General General Date of Admission: 08/18/23 Date of Service: 08/18/23 Chief Complaint: Abnormal labs at the retirement HPI Narrative RICHIE HANSEN, is a 83 M who presents for evaluation of increased creatinine that he has had over the past 2 days at the skilled care facility at which she resides for inpatient skilled services. They are unable to provide IV fluids for the patient due to concern for fluids causing possible congestive heart failure. Patient has a history of chronic kidney disease and chronic congestive heart failure with decreased ejection fraction. Labs obtained in the emergency room included a CBC which was remarkable for hemoglobin of 10.8, chemistry profile was remarkable for potassium of 5.2, creatinine of 3.58, BUN of 68. Patient will be placed in observation status for acute kidney injury on a backdrop of chronic kidney disease, IV fluids will be administered and labs will be monitored. [facility] Medical History Acute constipation Acute exacerbation of chronic low back pain Acute gastrointestinal bleeding Acute kidney injury Acute kidney injury superimposed on chronic kidney disease Ambulates with cane Anemia Anxiety Arthritis Atherosclerotic heart disease of [place] coronary artery without angina pectoris Atrial fibrillation Atypical atrial flutter (12/2020) Back pain Benign prostatic hyperplasia BPH (benign prostatic hyperplasia) Cancer Cardiology follow-up encounter Chronic anemia Chronic heart failure with preserved ejection fraction (HFpEF) Chronic kidney disease Chronic pain Chronic renal insufficiency Colitis COPD (chronic obstructive pulmonary disease) CPAP (continuous positive airway pressure) dependence Debility Diarrhea Difficulty chewing Dysphagia Easy bruising Elevated LFTs Elevated liver enzymes Essential (primary) hypertension Excessive bleeding Gastric reflux GI bleed (2012) Hearing loss, left Hearing loss, right Hiatal hernia High cholesterol History of colon polyps History of diverticulitis History of echocardiogram History of edema History of heart attack History of hyperthyroidism History of leukemia History of pain when walking History of renal disease History of stress test HLD (hyperlipidemia) Hypertension Hypothyroidism Irregular heart beat Kidney disease Kidney stones Myocardial infarct Nausea and vomiting Non-rheumatic tricuspid valve insufficiency Non-smoker Nonrheumatic mitral (valve) insufficiency 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 Osteoarthritis Paroxysmal atrial fibrillation Rheumatoid arthritis Secondary pulmonary arterial hypertension Sleep apnea Sleep apnea Stage 3b chronic kidney disease Thoracic aortic aneurysm (TAA) Thyroid disease Wears glasses Home Medications tamsulosin 0.4 mg capsule 0.4 mg PO QHS bladder 11/18/21 [History Last Taken 06/20/23] vitamin B complex 1 cap PO BID supplement 05/01/22 [History Last Taken 02/12/23] ascorbic acid (vitamin C) 500 mg tablet 500 mg PO DAILY supplement 07/20/22 [History Last Taken 06/21/23] finasteride 5 mg tablet 5 mg PO DAILY prostate 08/05/22 [History Last Taken 06/21/23] cholecalciferol (vitamin D3) 25 mcg (1,000 unit) capsule (Vitamin D3) 1,000 unit PO DAILY supplement 02/19/23 [History Last Taken Unknown] polyethylene glycol 3350 17 gram oral powder packet 17 g PO DAILY constipation 02/19/23 [History Last Taken Unknown] amiodarone 100 mg tablet 100 mg PO BID heart 02/21/23 [History Last Taken 06/21/23] sucralfate 1 gram tablet 1 g PO TID@0700,1100,1600 stomach 30 days #90 tabs 03/21/23 [Rx Last Taken 06/21/23] loratadine 10 mg tablet (Claritin) 10 mg PO DAILY allergies 06/16/23 [History Last Taken Unknown] warfarin 3 mg tablet (Jantoven) 3 mg PO SuTuThSa@1700 blood thinner #0 tabs 06/21/23 [Rx Last Taken 06/19/23] warfarin 4 mg tablet See Rx Instructions .Route .COMPLEX blood thinner #60 tabs 06/21/23 [Rx Last Taken 06/20/23] metoprolol tartrate 25 mg tablet 25 mg PO BID BP #0 tabs 07/06/23 [Rx Last Taken Unknown] empagliflozin 10 mg tablet (Jardiance) 10 mg PO DAILY Diabetes #0 tabs 07/22/23 [Rx Last Taken Unknown] hydralazine 50 mg tablet 50 mg PO 4X/DAY BP #0 tabs 07/22/23 [Rx Last Taken Unknown] nitroglycerin 0.4 mg sublingual tablet 0.4 mg sublingual Q5M PRN Cardiac/Chest Pain #0 tabs 07/22/23 [Rx Last Taken Unknown] acetaminophen 500 mg tablet 1,000 mg (2 x 500 mg) PO Q6H PRN PRN PAIN 1-10 #0 tabs 08/04/23 [Rx Last Taken Unknown] acidophilus 25 million cell-pectin, citrus 100 mg tablet 2 tab PO BID #0 tabs 08/04/23 [Rx Last Taken Unknown] albuterol sulfate 2.5 mg/3 mL (0.083 %) solution for nebulization 2.5 mg (3 mL) inhalation Q6HWA.RT #0 mL 08/04/23 [Rx Last Taken Unknown] famotidine 20 mg tablet 20 mg PO DAILY #0 tabs 08/04/23 [Rx Last Taken Unknown] furosemide 40 mg tablet 40 mg PO BIDCM #0 tabs 08/04/23 [Rx Last Taken Unknown] isosorbide dinitrate 10 mg tablet 5 mg (1/2 x 10 mg) PO BID #0 tabs 08/04/23 [Rx Last Taken Unknown] lactulose 20 gram/30 mL oral solution 10 g (15 mL) PO DAILY #0 mL 08/04/23 [Rx Last Taken Unknown] levothyroxine 50 mcg tablet 50 mcg PO 0600 #0 tabs 08/04/23 [Rx Last Taken Unknown] lorazepam 0.5 mg tablet 0.5 mg PO Q6H PRN PRN ANXIETY/RESTLESSNESS 3 days #12 tabs 08/04/23 [Rx Last Taken Unknown] magnesium chloride 64 mg (magnesium chloride) tablet,delayed release (Mag 64) 128 mg (2 x 64 mg) PO BID #0 tabs 08/04/23 [Rx Last Taken Unknown] melatonin 3 mg tablet 3 mg PO QHS PRN PRN Insomnia #0 tabs 08/04/23 [Rx Last Taken Unknown] potassium chloride 20 mEq tablet,extended release(part/cryst) 40 meq (2 x 20 mEq) PO BIDCM #0 tabs 08/04/23 [Rx Last Taken Unknown] sodium chloride 0.65 % nasal spray aerosol (Deep Sea Nasal) 2 spray NASAL TID PRN PRN NASAL DRYNESS #0 mL 08/04/23 [Rx Last Taken Unknown] Allergy/AdvReac Type Severity Reaction Status Date / Time diclofenac Allergy rash Verified 07/27/23 13:50 prednisone Allergy Rash Verified 07/27/23 13:50 Family History Father Cancer Prostate cancer Mother Hypertension Sister Hypertension Surgical History History of back surgery History of back surgery History of cardiac catheterization History of cardioversion (06/18/19) History of coronary artery stent placement (08/04/00) History of electrophysiologic study (08/08/00) History of esophagogastroduodenoscopy (EGD) History of hemorrhoidectomy History of hernia repair History of left heart catheterization (07/17/12) History of Zenaida fundoplication History of radiofrequency ablation procedure for cardiac arrhythmia (11/11/11) Social History household members: none Smoking Status: Never smoker alcohol intake: never substance use type: does not use caffeine: No ROS Constitutional Constitutional: Reports fatigue and weakness; Denies anorexia, change in weight, fever(s) or night sweats Eyes Eyes: Denies blurry vision, change in vision, discharge from eye(s) or eye pain Cardiovascular Cardiovascular: Denies chest pain, claudication, edema or palpitations Respiratory/Chest Respiratory/Chest: Denies cough, hemoptysis, shortness of breath at rest or shortness of breath with exertion Gastrointestinal Gastrointestinal: Denies abdominal pain, constipation, diarrhea, hematemesis, hematochezia, melena, nausea or vomiting Genitourinary Genitourinary: Denies dysuria, hematuria, urinary frequency, urinary hesitancy, urinary incontinence or urinary urgency Musculoskeletal Musculoskeletal: Denies back pain, joint pain, joint stiffness, joint swelling, myalgias or neck pain Neurologic Neurologic: Denies abnormal gait, abnormal speech, dizziness, focal weakness, headache(s), loss of vision, numbness, other visual disturbances, paresthesias, syncope or tingling Psychiatric Psychiatric: Denies anxiety, cognitive impairment, depression, irritability, mood swings or suicidal ideation Endocrine Endocrinology: Denies change in body appearance, cold intolerance, excessive sweating, heat intolerance, polydipsia or polyuria Hematologic/Lymphatic Hematologic/Lymphatic: Denies none, anemia, easy bleeding, easy bruising or lymphadenopathy Allergic/Immunologic Allergic/Immunologic: Denies rhinitis, urticaria, eczemia or asthma Vital Signs Vital Signs Vital Signs: 08/18/23 13:48 08/18/23 13:50 08/18/23 13:50 Temperature 97.8 F 97.8 F Temperature Source Temporal Temporal Pulse Rate 103 H 103 H 103 H Respiratory Rate 14 14 Respiratory Pattern Blood Pressure 81/57 L 81/57 L 81/57 L Blood Pressure Mean 65 65 65 Pulse Ox 95 95 Oxygen Delivery Method Room Air Room Air 08/18/23 14:06 08/18/23 14:05 08/18/23 14:34 Temperature Temperature Source Pulse Rate 70 83 Respiratory Rate 13 21 H Respiratory Pattern Normal Blood Pressure 99/65 95/61 Blood Pressure Mean 76 72 Pulse Ox 95 97 Oxygen Delivery Method Room Air 08/18/23 15:36 08/18/23 17:12 08/18/23 18:02 Temperature Temperature Source Pulse Rate 89 83 87 Respiratory Rate 45 H 18 29 H Respiratory Pattern Blood Pressure 106/74 120/74 109/71 Blood Pressure Mean 84 89 83 Pulse Ox 96 95 97 Oxygen Delivery Method Room Air Weight Weight: 65.9 kg Body Mass Index (BMI) 22.1 Physical Exam Const alert, oriented x3, no apparent distress and average body habitus General Appearance: cooperative, well kempt and well developed Orientation / Consciousness: awake, oriented to person, oriented to place and oriented to time HEENT normocephalic and moist oral mucous membranes Eyes PERRL, EOMs intact bilaterally and conjunctivae normal Neck supple, no JVD, thyroid normal and no carotid bruits General: trachea midline Resp normal respiratory effort, no retractions, no use of accessory muscles and clear to auscultation bilaterally Auscultation: Negative for rales, rhonchi or wheezes Cardio regular rate, regular rhythm, S1 normal heart sound, S2 normal heart sound, no murmurs, no rub and no gallops GI normal to inspection, nondistended, normoactive bowel sounds, soft to palpation, non-tender and non-distended Extremity no clubbing, cyanosis or edema Skin no rashes or lesions noted General Skin Exam: no breakdown Neuro oriented x3, CN's II-XII intact bilaterally, no focal motor deficits and no sensory deficits noted Sensorium / Orientation: awake and alert Speech: speech normal Psych affect normal Results Lab / Micro Data 08/18/23 13:38 08/18/23 13:38 Labs: Laboratory Results - last 24 hr 08/18/23 13:38: WBC 9.4, RBC 3.49 L, Hgb 10.8 L, Hct 35.7 L, MCV 102.3 H, MCH 30.9, MCHC 30.3 L, RDW Std Deviation 76.2 H, RDW Coeff of Pablo 20.0 H, Plt Count 420, MPV 10.1, Immature Gran % (Auto) 0.700, Neut % (Auto) 82.8 H, Lymph % (Auto) 6.0 L, [place] % (Auto) 8.4, Eos % (Auto) 1.2, Baso % (Auto) 0.9, Absolute Neuts (auto) 7.8 H, Absolute Lymphs (auto) 0.56 L, Nucleated RBC % 0, Differential Comment SCANNED, Anisocytosis 2+, Microcytosis 1+, Macrocytosis 1+, Sodium 138, Potassium 5.2 H, Chloride 104, Carbon Dioxide 26.0, Anion Gap 8, BUN 68 H, Creatinine 3.58 H, Est GFR (MDRD) Af Amer 21 L, Est GFR (MDRD) Non-Af 17 L, BUN/Creatinine Ratio 19.0, Glucose 120 H, Calcium 8.8, Total Bilirubin 0.70, Direct Bilirubin 0.32 H, AST 50 H, ALT 62 H, Alkaline Phosphatase 97, Total Protein 8.3 H, Albumin 3.7, Globulin 4.6 H 08/18/23 15:30: PT 26.5 H, INR 2.4, Lactic Acid 1.0, Urine Color Yellow, Urine Clarity Clear, Urine pH 6.0, Ur Specific [place] 1.010, Urine Protein Negative, Urine Glucose (UA) Normal, Urine Ketones Negative, Urine Occult Blood Negative, Urine Nitrite Negative, Urine Bilirubin Negative, Urine Urobilinogen Normal, Ur Leukocyte Esterase Negative, Urine RBC 0 SEEN, Urine WBC 0 SEEN, Ur Squamous Epith Cells 0 SEEN, Urine Bacteria 0 SEEN, Urine Mucus 0 SEEN Imagaing Radiology Impression Chest X-Ray 08/18/23 15:00 IMPRESSION: Mild residual increased linear markings at the right lung base suggestive of scarring. The left lung is clear. Electronically Signed: Wilfred Milligan MD at 15:24 EST , Assessment & Plan Assessment/Plan (1) Acute kidney injury superimposed on chronic kidney disease: PLAN: Plan 1. Acute kidney injury on a backdrop of chronic kidney disease stage IV-patient will be placed into observation status on [facility], he will receive IV fluids at 100 cc/h, he will need to be reevaluated tomorrow morning for continued fluid administration with special attention concerning possible exacerbation of chronic heart failure. Labs will be repeated tomorrow morning. #2 acute kidney disease stage IV-complicates care, medical course, recovery, and prognosis #3 acute on chronic heart failure with reduced ejection fraction-complicates care, medical course, recovery, and prognosis #4 history of atrial fibrillation-patient is on Coumadin presently as well as amiodarone, INR is therapeutic #5 hypotension-patient had hypotension in the emergency room initially but this corrected with administration of fluids. #6 coronary artery disease-complicates care, medical course, recovery, and prognosis Total clinical time spent by myself assessing the patient's medical issues, reviewing all of his data, and collaborating with patient's care team: 40 minutes Charges/Coding Visit Charges Inpatient E&M: 25776 Init Hosp L1
--- OUTSIDE RECORDS SUMMARY | 2023-08-18 18:30 | XMS RPT_ITS | CCD ---
Author Name Unknown Address [address] [place] [address] Organization [facility] Care Team Providers Care Real Property Appraiser Name Role Phone Marcus Samuel Armand Primary Care Provider Massimo Hurtado (Historic) Primary Care Prov ider Karo Higgins (Retired) Primary Care Provider Joanne Chu Primary Care Provider [phone] Allergies Allergy Classification Reported Allergen(s) Allergy Type Date of Onset Reaction(s) Facility (1 source) Adhesive agent Propensity to adverse reactions 05-07-2009 [facility] (1 source) Grass pollen Propensity to adverse reactions 06-24-2005 [facility] (1 source) predniSONE Drug Allergy 07-11-2012 Rash [facility] (1 source) Ragweed Propensity to adverse reactions 06-24-2005 [facility] Medications Completed/Discontinued Medications Medication Drug Class(es) [...] [Coronary atherosclerosis of unspecified type of vessel, [place] or graft] Onset: 06-18-2005 06-18-2005 Chronic Disorders [...] Patient encounter procedure Eugenio Pichardo Work Phone: [facility] Start: 07-02-2008 Results Only Eugenio Pichardo Work Phone: [facility] Procedures Date Procedure Procedure Detail Performing Clinician Start: 05-16-2014 Colonoscopy Eugenio hernandez Start: 07-03-2008 CONVERTED SURGICAL PATHOLOGY Eugenio Pichardo Work Phone: Start: 07-02-2008 CONVERTED SURGICAL PATHOLOGY Eugenio Indio Pichardo Work Phone: Plan of Treatment Date Care Activity Detail Author Start: 04-29-2020 Influenza vaccination INFLUENZA (#1) [facility] Start: 05-16-2017 Colonoscopy COLONOSCOPY [facility] Start: 09-29-2016 LIPID SCREEN LIPID SCREEN [facility] Start: 08-03-2016 DIABETES SCREEN DIABETES SCREEN [facility] Start: 2006 ADVANCE DIRECTIVE DISCUSSION ADVANCE DIRECTIVE DISCUSSION [facility] Start: 1991 SHINGRIX VACCINE (1 of 2) MORELOS GRIX VACCINE (1 of 2) [facility] Start: 1960 Urine microalbumin profile DTAP,TDAP ,TD (1 - Tdap) [facility] Start: 1959 ANNUAL PCP TEAM WARP HAND AVRIL DISEASE VISIT ANNUAL PCP TEAM CHRONIC DISEASE VISIT [facility] Start: 1959 BP CONTROLLED (<130/80) BP CONTROLLE D (<130/80) [facility] Start: 1959 Hepatitis B surface antibody level LDL CHOLESTEROL [facility] Start: 1959 HEPATITIS C SCREENING HEPATITIS C SC JONI [facility] Immunizations Immunization Date Immunization Notes Care Provider Abiodun isbell 07-06-2005 influenza virus vacc ine, unspecified formulation Eugenio Pichardo [facility] Payers Date Payer Category Payer Medicare MEDICARE MEDICAR E B [id number] 2006-Present [place] Medicare [id number] 2005 Private Health Insurance [employer] PPO [id number] 2005-Present PPO [id number] Social History Date Type Detail Facility Start: 09-02-2005 Tobacco smoking stat us SDIS Never smoker [facility] Start: 09-02-2005 Alcohol intake 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 [facility] [place] [facility]. provides no warranty or guarantee of the accuracy or completeness of information in this document.
[2023-08-18] MEDS: 0.9% Normal Saline (1000mL) 1,000 ML 100 ML IV (18:53)
[2023-08-18] MEDS: hydrALAZINE 50 MG Tablet PO (18:53)
[2023-08-18] MEDS: 0.9% Saline Lock 10 ML Syringe IV (18:54)
[2023-08-18] MEDS: Amiodarone 200 MG Tablet 100 MG PO (21:13)
[2023-08-18] MEDS: Tamsulosin HCl 0.4 MG Capsule 0.400000000000000022 MG PO (21:13)
[2023-08-18] MEDS: Isosorbide DN 10 MG Tablet 5 MG PO (21:14)
[2023-08-19] MEDS: LORazepam 0.5 MG Tablet PO (01:23)
[2023-08-19 03:28] VITALS: BP 107/62; PULSE 76; RESP 16; TEMP 36.4; O2SAT 96
[2023-08-19] MEDS: 0.9% Normal Saline (1000mL) 1,000 ML 100 ML IV (05:41)
[2023-08-19] MEDS: Sucralfate 1 GM Tablet PO ×2 (05:42→12:14)
[2023-08-19] MEDS: Levothyroxine 50 MCG Tablet PO (05:42)
[2023-08-19 06:18] LABS: Anion Gap 7 (5-15); BUN 60 mg/dL (7-18); Chloride 110 mmol/L (98-107); EST Glomerular Filtration Rate 21 mL/min (>60); Est Glom Filt Rate - Afr Amer 26 mL/min (>60); Estimated Creatinine Clearance 16.14 ml/min; Glucose 89 mg/dL (74-106); Sodium Level 141 mmol/L (136-145)
--- NOTE | 2023-08-19 08:01 | PCM.PN.HOSP ---
Reason for Visit Reason for Visit: Diagnoses Acute kidney failure, unspecified (08/18/23) Chronic kidney disease, unspecified (08/18/23) Subjective Subjective Short of breath. No chest pain Objective Data Objective Data Vital Signs: Vital Signs Temp Pulse Resp BP Pulse Ox O2 Del Method 36.4 C L 76 16 107/62 96 Room Air 08/19/23 03:28 08/19/23 03:28 08/19/23 03:28 08/19/23 03:28 08/19/23 03:28 08/19/23 03:28 Oxygen Delivery Method Room Air Weight: 60.1 kg Body Mass Index (BMI) 20.1 Intake & Output: Intake and Output for Last 24 Hours 08/17/23 08/18/23 08/19/23 23:59 23:59 23:59 Intake Total 1500 / 1500 1200 / 1200 Output Total 500 / 500 475 / 475 Balance 1000 / 1000 725 / 725 Lab / Micro Data 08/18/23 13:38 08/19/23 05:10 Labs: Laboratory Results - last 24 hr 08/18/23 13:38: WBC 9.4, RBC 3.49 L, Hgb 10.8 L, Hct 35.7 L, MCV 102.3 H, MCH 30.9, MCHC 30.3 L, RDW Std Deviation 76.2 H, RDW Coeff of Pablo 20.0 H, Plt Count 420, MPV 10.1, Immature Gran % (Auto) 0.700, Neut % (Auto) 82.8 H, Lymph % (Auto) 6.0 L, [place] % (Auto) 8.4, Eos % (Auto) 1.2, Baso % (Auto) 0.9, Absolute Neuts (auto) 7.8 H, Absolute Lymphs (auto) 0.56 L, Nucleated RBC % 0, Differential Comment SCANNED, Anisocytosis 2+, Microcytosis 1+, Macrocytosis 1+, Sodium 138, Potassium 5.2 H, Chloride 104, Carbon Dioxide 26.0, Anion Gap 8, BUN 68 H, Creatinine 3.58 H, Est GFR (MDRD) Af Amer 21 L, Est GFR (MDRD) Non-Af 17 L, BUN/Creatinine Ratio 19.0, Glucose 120 H, Calcium 8.8, Total Bilirubin 0.70, Direct Bilirubin 0.32 H, AST 50 H, ALT 62 H, Alkaline Phosphatase 97, Total Protein 8.3 H, Albumin 3.7, Globulin 4.6 H 08/18/23 15:30: PT 26.5 H, INR 2.4, Lactic Acid 1.0, Urine Color Yellow, Urine Clarity Clear, Urine pH 6.0, Ur Specific [place] 1.010, Urine Protein Negative, Urine Glucose (UA) Normal, Urine Ketones Negative, Urine Occult Blood Negative, Urine Nitrite Negative, Urine Bilirubin Negative, Urine Urobilinogen Normal, Ur Leukocyte Esterase Negative, Urine RBC 0 SEEN, Urine WBC 0 SEEN, Ur Squamous Epith Cells 0 SEEN, Urine Bacteria 0 SEEN, Urine Mucus 0 SEEN 08/19/23 05:10: Sodium 141, Potassium 4.0, Chloride 110 H, Carbon Dioxide 24.0, Anion Gap 7, BUN 60 H, Creatinine 3.00 H, Estim Creat Clear Calc 16.14, Est GFR (MDRD) Af Amer 26 L, Est GFR (MDRD) Non-Af 21 L, BUN/Creatinine Ratio 20.0, Glucose 89, Calcium 8.0 L Radiography Diagnostic Testing: Radiology Impression Chest X-Ray 08/18/23 15:00 IMPRESSION: Mild residual increased linear markings at the right lung base suggestive of scarring. The left lung is clear. Electronically Signed: Wilfred Milligan MD at 15:24 EST , Physical Exam Const alert and no apparent distress HEENT head/scalp atraumatic and moist oral mucous membranes Resp normal respiratory effort, no retractions, no use of accessory muscles and clear to auscultation bilaterally Cardio regular rate, regular rhythm, S1 normal heart sound and S2 normal heart sound GI normal to inspection, nondistended, normoactive bowel sounds, soft to palpation, non-tender and non-distended Assessment & Plan Assessment/Plan (1) Acute kidney injury superimposed on chronic kidney disease: PLAN: Plan Acute kidney injury on a backdrop of chronic kidney disease stage IV- Creatinine back to about his baseline. Suspect due to dehydration, he had been diuretics. 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 Will change it over to 40 daily given the FE. Continue with hydralazine and isosorbide. atrial fibrillation-INR therapeutic. Continue with warfarin. Continue with amiodarone. coronary artery disease- Discharge back to [facility].
[2023-08-19 08:44] VITALS: PULSE 82
[2023-08-19] MEDS: Amiodarone 200 MG Tablet 100 MG PO (08:44)
[2023-08-19] MEDS: Metoprolol Tartrate 25 MG Tablet PO (08:44)
[2023-08-19] MEDS: hydrALAZINE 50 MG Tablet PO ×2 (08:44→14:35)
[2023-08-19] MEDS: Famotidine 20 MG Tablet PO (08:45)
[2023-08-19] MEDS: Isosorbide DN 10 MG Tablet 5 MG PO (08:45)
[2023-08-19 09:00] VITALS: BP 117/83; PULSE 86; RESP 16; TEMP 36.7; O2SAT 97
--- NOTE | 2023-08-19 10:39 | WOUNDNOTE ---
wound photo: right forearm
--- NOTE | 2023-08-19 11:01 | CASEMGMT ---
Discharge Planning Updates sent to [facility] via [employer]. Asked if Covid will be needed. Harriet Jimenez, Discharge Planning Asst.
--- NOTE | 2023-08-19 12:42 | PCM.TXEXTCAR ---
Diet Diet Order/Speech Therapy: 08/18/23 18:26 Diet: Regular - General Food consistency:: Regular Liquid Consistency:: Regular/Thin Routine Orders/Code Status Code Status: Full Code Wound(s) left lower ext: Wound Type: Abrasion rt fa: Wound Type: skin tear/scratch from dog prior to admission Dressing Change: Adaptic Therapies Weight Bearing: Full weight bearing Physical Therapy: Eval and Treat Occupational Therapy: Eval and Treat Problem/Diagnosis (1) Acute kidney injury superimposed on chronic kidney disease: Status: Chronic Code(s): N17.9 - Acute kidney failure, unspecified; N18.9 - Chronic kidney disease, unspecified Plan Acute kidney injury on a backdrop of chronic kidney disease stage IV- Creatinine back to about his baseline. Suspect due to dehydration, he had been diuretics. 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 Will change it over to 40 daily given the FE. Continue with hydralazine and isosorbide. atrial fibrillation-INR therapeutic. Continue with warfarin. Continue with amiodarone. coronary artery disease- Discharge back to [facility]. Allergies/Procedures Done in Hospital Allergies diclofenac Allergy (Verified 07/27/23 13:50) rash prednisone Allergy (Verified 07/27/23 13:50) Rash Procedures: None Type of Care/Length of Stay Estimated LOS: Convalescent Care Less Than 30 days Type of Care Needed: Skilled Rehab Potential: Fair Prognosis: Good Additional Orders/Day of Discharge Day of Discharge: 08/19/23 Dietary and Speech Recommendations Dietitian Recommendations/Changes: will adjust diet to cardiac Discharge Plan Admission Admit Date/Time: 08/18/23 17:43 Primary Reason for Your Visit: FE. Attending Provider: César Hartley Primary Care Provider: César Chinchilla Consulting Providers: Nagi Shanks Discharge Orders/Prescriptions Prescriptions: Continued tamsulosin 0.4 mg capsule 0.4 mg PO QHS ascorbic acid (vitamin C) 500 mg tablet 500 mg PO DAILY finasteride 5 mg tablet 5 mg PO DAILY vitamin B complex Capsule 1 cap PO BID polyethylene glycol 3350 17 gram Powder In Packet 17 g PO DAILY cholecalciferol (vitamin D3) [Vitamin D3] 25 mcg (1,000 unit) Capsule 1,000 unit PO DAILY amiodarone 100 mg tablet 100 mg PO BID sucralfate 1 gram Tablet 1 g PO TID@0700,1100,1600 30 Days Qty: 90 0RF metoprolol tartrate 25 mg Tablet 25 mg PO BID Qty: 0 0RF nitroglycerin 0.4 mg Tablet, Sublingual 0.4 mg sublingual Q5M PRN (Reason: Cardiac/Chest Pain) Qty: 0 0RF hydralazine 50 mg Tablet 50 mg PO 4X/DAY Qty: 0 0RF Jardiance 10 mg Tablet 10 mg PO DAILY Qty: 0 0RF loratadine [Claritin] 10 mg tablet 10 mg PO DAILY warfarin [Jantoven] 3 mg Tablet 3 mg PO SuTuThSa@1700 Qty: 0 0RF warfarin 4 mg tablet See Rx Instructions .Route .COMPLEX Qty: 60 0RF Protocol: Dose Management Condition: Tuesday Dose/Route: 4 mg Instruction: 1 x 4 mg tablet Condition: Tuesday Dose/Route: 4 mg Instruction: 1 x 4 mg tablet Condition: Tuesday Dose/Route: 4 mg Instruction: 1 x 4 mg tablet Condition: Tuesday Dose/Route: 4 mg Instruction: 1 x 4 mg tablet Condition: Dose/Route: 2 mg Instruction: 1 x 2 mg tablet Condition: Tuesday Dose/Route: 2 mg Instruction: 1 x 2 mg tablet Condition: Tuesday Dose/Route: 2 mg Instruction: 1 x 2 mg tablet Protocol Text: Adjustment Start Date: Tuesday06/17/23 INR Value: 1.7 INR Date: 06/17/23 Recheck Date: 06/24/23 Rx Instructions: 4mg Tue, Tue, Tue. 3mg Tue, , , Sat orally; isosorbide dinitrate 10 mg Tablet 5 mg PO BID Qty: 0 0RF albuterol sulfate 2.5 mg /3 mL (0.083 %) Solution For Nebulization 2.5 mg inhalation Q6HWA.RT Qty: 0 0RF melatonin 3 mg Tablet 3 mg PO QHS PRN PRN (Reason: Insomnia) Qty: 0 0RF acetaminophen 500 mg Tablet 1,000 mg PO Q6H PRN PRN (Reason: PAIN 1-10) Qty: 0 0RF potassium chloride 20 mEq Tablet,Er Particles/Crystals 40 meq PO BIDCM Qty: 0 0RF famotidine 20 mg Tablet 20 mg PO DAILY Qty: 0 0RF levothyroxine 50 mcg Tablet 50 mcg PO 0600 Qty: 0 0RF Deep [place] Nasal 0.65 % Aerosol,[place] 2 spray NASAL TID PRN PRN (Reason: NASAL DRYNESS) Qty: 0 0RF acidophilus-pectin, citrus 25 million cell -100 mg Tablet 2 tab PO BID Qty: 0 0RF Mag 64 64 mg Tablet,Delayed Release (Dr/Ec) 128 mg PO BID Qty: 0 0RF lactulose 20 gram/30 mL Solution 10 g PO DAILY Qty: 0 0RF Changed furosemide 40 mg Tablet 40 mg PO DAILY Qty: 0 0RF Discontinued lorazepam 0.5 mg Tablet 0.5 mg PO Q6H PRN PRN (Reason: ANXIETY/RESTLESSNESS) 3 Days Qty: 12 0RF Referrals / Follow Up: [facility] [Provider Group] - 09/01/23 1:30 pm César Chinchilla MD [Primary Care Provider] - Within 2 Weeks Disposition Disposition (needs filled in before D/C Order can be placed): [facility]
--- NOTE | 2023-08-19 12:48 | DS.PCM_ITS ---
Providers Date of Admission: 08/18/23 Primary Care Physician: Dr. César Chinchilla MD Consultations 08/19/23 06:13 Consult: Onc/Wound/senior etl developer Routine Comment: Reason for Consult:: RFA Dog scratch Reason For Visit: ACUTE KIDNEY INJURY ON CHRONIC KIDNEY DISEASE Diagnosis Discharge Diagnosis (1) Acute kidney injury superimposed on chronic kidney disease: Status: Chronic Code(s): N17.9 - Acute kidney failure, unspecified; N18.9 - Chronic kidney disease, unspecified Plan Acute kidney injury on a backdrop of chronic kidney disease stage IV- * Creatinine back to about his baseline. * Suspect due to dehydration, he had been diuretics. Chronic conditions * Chronic disease stage IV * chronic heart failure with reduced ejection fraction: Patient normally takes furosemide 40 mg twice daily. Will change it over to 40 daily given the FE. Continue with hydralazine and isosorbide. * atrial fibrillation-INR therapeutic. Continue with warfarin. Continue with amiodarone. * coronary artery disease- Discharge back to [facility]. Medications at Discharge Home Medications tamsulosin 0.4 mg capsule 0.4 mg PO QHS bladder 11/18/21 vitamin B complex 1 cap PO BID supplement 05/01/22 ascorbic acid (vitamin C) 500 mg tablet 500 mg PO DAILY supplement 07/20/22 finasteride 5 mg tablet 5 mg PO DAILY prostate 08/05/22 cholecalciferol (vitamin D3) 25 mcg (1,000 unit) capsule (Vitamin D3) 1,000 unit PO DAILY supplement 02/19/23 polyethylene glycol 3350 17 gram oral powder packet 17 g PO DAILY constipation 02/19/23 amiodarone 100 mg tablet 100 mg PO BID heart 02/21/23 sucralfate 1 gram tablet 1 g PO TID@0700,1100,1600 stomach 30 days #90 tabs 03/21/23 loratadine 10 mg tablet (Claritin) 10 mg PO DAILY allergies 06/16/23 warfarin 3 mg tablet (Jantoven) 3 mg PO SuTuThSa@1700 blood thinner #0 tabs 06/21/23 warfarin 4 mg tablet See Rx Instructions .Route .COMPLEX blood thinner #60 tabs 06/21/23 metoprolol tartrate 25 mg tablet 25 mg PO BID BP #0 tabs 07/06/23 empagliflozin 10 mg tablet (Jardiance) 10 mg PO DAILY Diabetes #0 tabs 07/22/23 hydralazine 50 mg tablet 50 mg PO 4X/DAY BP #0 tabs 07/22/23 nitroglycerin 0.4 mg sublingual tablet 0.4 mg sublingual Q5M PRN Cardiac/Chest Pain #0 tabs 07/22/23 acetaminophen 500 mg tablet 1,000 mg (2 x 500 mg) PO Q6H PRN PRN PAIN 1-10 #0 tabs 08/04/23 acidophilus 25 million cell-pectin, citrus 100 mg tablet 2 tab PO BID #0 tabs 08/04/23 albuterol sulfate 2.5 mg/3 mL (0.083 %) solution for nebulization 2.5 mg (3 mL) inhalation Q6HWA.RT #0 mL 08/04/23 famotidine 20 mg tablet 20 mg PO DAILY #0 tabs 08/04/23 isosorbide dinitrate 10 mg tablet 5 mg (1/2 x 10 mg) PO BID #0 tabs 08/04/23 lactulose 20 gram/30 mL oral solution 10 g (15 mL) PO DAILY #0 mL 08/04/23 levothyroxine 50 mcg tablet 50 mcg PO 0600 #0 tabs 08/04/23 magnesium chloride 64 mg (magnesium chloride) tablet,delayed release (Mag 64) 128 mg (2 x 64 mg) PO BID #0 tabs 08/04/23 melatonin 3 mg tablet 3 mg PO QHS PRN PRN Insomnia #0 tabs 08/04/23 potassium chloride 20 mEq tablet,extended release(part/cryst) 40 meq (2 x 20 mEq) PO BIDCM #0 tabs 08/04/23 sodium chloride 0.65 % nasal spray aerosol ([place] Sea Nasal) 2 spray NASAL TID PRN PRN NASAL DRYNESS #0 mL 08/04/23 furosemide 40 mg tablet 40 mg PO DAILY #0 tabs 08/19/23 Hospital Course Operations None Procedures None Summary of Care Provided Minutes Spent on Discharge: 32 Weight / BMI Weight Weight: 60.1 kg Body Mass Index (BMI) 20.1 ABG / Lab / Microbiology Data 08/18/23 13:38 08/19/23 05:10 Laboratory: Laboratory Results - last 24 hr 08/18/23 13:38: WBC 9.4, RBC 3.49 L, Hgb 10.8 L, Hct 35.7 L, MCV 102.3 H, MCH 30.9, MCHC 30.3 L, RDW Std Deviation 76.2 H, RDW Coeff of Pablo 20.0 H, Plt Count 420, MPV 10.1, Immature Gran % (Auto) 0.700, Neut % (Auto) 82.8 H, Lymph % (Auto) 6.0 L, [place] % (Auto) 8.4, Eos % (Auto) 1.2, Baso % (Auto) 0.9, Absolute Neuts (auto) 7.8 H, Absolute Lymphs (auto) 0.56 L, Nucleated RBC % 0, Differential Comment SCANNED, Anisocytosis 2+, Microcytosis 1+, Macrocytosis 1+, Sodium 138, Potassium 5.2 H, Chloride 104, Carbon Dioxide 26.0, Anion Gap 8, BUN 68 H, Creatinine 3.58 H, Est GFR (MDRD) Af Amer 21 L, Est GFR (MDRD) Non-Af 17 L , BUN/Creatinine Ratio 19.0, Glucose 120 H, Calcium 8.8, Total Bilirubin 0.70, Direct Bilirubin 0.32 H, AST 50 H, ALT 62 H, Alkaline Phosphatase 97, Total Protein 8.3 H, Albumin 3.7, Globulin 4.6 H 08/18/23 15:30: PT 26.5 H, INR 2.4, Lactic Acid 1.0, Urine Color Yellow, Urine Clarity Clear, Urine pH 6.0, Ur Specific [place] 1.010, Urine Protein Negative, Urine Glucose (UA) Normal, Urine Ketones Negative, Urine Occult Blood Negative, Urine Nitrite Negative, Urine Bilirubin Negative, Urine Urobilinogen Normal, Ur Leukocyte Esterase Negative, Urine RBC 0 SEEN, Urine WBC 0 SEEN, Ur Squamous Epith Cells 0 SEEN, Urine Bacteria 0 SEEN, Urine Mucus 0 SEEN 08/19/23 05:10: Sodium 141, Potassium 4.0, Chloride 110 H, Carbon Dioxide 24.0, Anion Gap 7, BUN 60 H, Creatinine 3.00 H, Estim Creat Clear Calc 16.14, Est GFR (MDRD) Af Amer 26 L, Est GFR (MDRD) Non-Af 21 L, BUN/Creatinine Ratio 20.0, Glucose 89, Calcium 8.0 L Radiography Diagnostic Testing: Radiology Impression Chest X-Ray 08/18/23 15:00 IMPRESSION: Mild residual increased linear markings at the right lung base suggestive of scarring. The left lung is clear. Electronically Signed: Wilfred Milligan MD at 15:24 EST , Meaningful Use Info Meaningful Use Diagnoses (Choose all that apply): None applicable Discharge Plan Admission Admit Date/Time: 08/18/23 17:43 Primary Reason for Your Visit: FE. Attending Provider: César Hartley Primary Care Provider: César Chinchilla Consulting Providers: Nagi Shanks Discharge Orders/Prescriptions Prescriptions: Continued tamsulosin 0.4 mg capsule 0.4 mg PO QHS ascorbic acid (vitamin C) 500 mg tablet 500 mg PO DAILY finasteride 5 mg tablet 5 mg PO DAILY vitamin B complex Capsule 1 cap PO BID polyethylene glycol 3350 17 gram Powder In Packet 17 g PO DAILY cholecalciferol (vitamin D3) [Vitamin D3] 25 mcg (1,000 unit) Capsule 1,000 unit PO DAILY amiodarone 100 mg tablet 100 mg PO BID sucralfate 1 gram Tablet 1 g PO TID@0700,1100,1600 30 Days Qty: 90 0RF metoprolol tartrate 25 mg Tablet 25 mg PO BID Qty: 0 0RF nitroglycerin 0.4 mg Tablet, Sublingual 0.4 mg sublingual Q5M PRN (Reason: Cardiac/Chest Pain) Qty: 0 0RF hydralazine 50 mg Tablet 50 mg PO 4X/DAY Qty: 0 0RF Jardiance 10 mg Tablet 10 mg PO DAILY Qty: 0 0RF loratadine [Claritin] 10 mg tablet 10 mg PO DAILY warfarin [Jantoven] 3 mg Tablet 3 mg PO SuTuThSa@1700 Qty: 0 0RF warfarin 4 mg tablet See Rx Instructions .Route .COMPLEX Qty: 60 0RF Protocol: Dose Management Condition: Tuesday Dose/Route: 4 mg Instruction: 1 x 4 mg tablet Condition: Tuesday Dose/Route: 4 mg Instruction: 1 x 4 mg tablet Condition: Tuesday Dose/Route: 4 mg Instruction: 1 x 4 mg tablet Condition: Tuesday Dose/Route: 4 mg Instruction: 1 x 4 mg tablet Condition: Dose/Route: 2 mg Instruction: 1 x 2 mg tablet Condition: Tuesday Dose/Route: 2 mg Instruction: 1 x 2 mg tablet Condition: Tuesday Dose/Route: 2 mg Instruction: 1 x 2 mg tablet Protocol Text: Adjustment Start Date: Tuesday06/17/23 INR Value: 1.7 INR Date: 06/17/23 Recheck Date: 06/24/23 Rx Instructions: 4mg Tue, Tue, Tue. 3mg Tue, , , Sat orally; isosorbide dinitrate 10 mg Tablet 5 mg PO BID Qty: 0 0RF albuterol sulfate 2.5 mg /3 mL (0.083 %) Solution For Nebulization 2.5 mg inhalation Q6HWA.RT Qty: 0 0RF melatonin 3 mg Tablet 3 mg PO QHS PRN PRN (Reason: Insomnia) Qty: 0 0RF acetaminophen 500 mg Tablet 1,000 mg PO Q6H PRN PRN (Reason: PAIN 1-10) Qty: 0 0RF potassium chloride 20 mEq Tablet,Er Particles/Crystals 40 meq PO BIDCM Qty: 0 0RF famotidine 20 mg Tablet 20 mg PO DAILY Qty: 0 0RF levothyroxine 50 mcg Tablet 50 mcg PO 0600 Qty: 0 0RF [place] Nasal 0.65 % Aerosol,[place] 2 spray NASAL TID PRN PRN (Reason: NASAL DRYNESS) Qty: 0 0RF acidophilus-pectin, citrus 25 million cell -100 mg Tablet 2 tab PO BID Qty: 0 0RF Mag 64 64 mg Tablet,Delayed Release (Dr/Ec) 128 mg PO BID Qty: 0 0RF lactulose 20 gram/30 mL Solution 10 g PO DAILY Qty: 0 0RF Changed furosemide 40 mg Tablet 40 mg PO DAILY Qty: 0 0RF Discontinued lorazepam 0.5 mg Tablet 0.5 mg PO Q6H PRN PRN (Reason: ANXIETY/RESTLESSNESS) 3 Days Qty: 12 0RF Referrals / Follow Up: [facility] [Provider Group] - 09/01/23 1:30 pm César Chinchilla MD [Primary Care Provider] - Within 2 Weeks Disposition Disposition (needs filled in before D/C Order can be placed): Detention Facility Charges/Coding Visit Charges Inpatient E&M: 86181 Disch Hosp >30min
--- NOTE | 2023-08-19 12:57 | CASEMGMT ---
Social Work SW met with pt and introduced self and role of SW. Pt is admitted from [facility]. Pt states that he plans to return there upon discharge and he just met with Palliative services and would like to continue with them when he returns. [place] is able to accept pt back. Physician notified and pt ready for dc today. Pt states he will get family to provide needed transportation. DC assistant manager bilingual updated and to complete discharge. Secure email sent to [facility] and updated on pts disposition. Disposition: Return to [facility] with Palliative Services LEEANN Guerrero
--- NOTE | 2023-08-19 13:20 | CASEMGMT ---
Discharge Planning Discharge orders, signed med list, and transport time sent to [facility] via [facility]. Patients family will transport patient at 3p. Nursing and SW updated. Harriet Jiemnez, Discharge Planning Asst.
[2023-08-19 14:35] VITALS: PULSE 84
[2023-08-19 14:45] VITALS: BP 117/82; PULSE 84; RESP 16; TEMP 37.1; O2SAT 93
--- NOTE | 2023-08-19 14:49 | CASEMGMT ---
Discharge Planning Covid results sent to [facility] via [facility]. Harriet Jimenez, Discharge Planning Asst.
--- NOTE | 2023-08-19 14:51 | NURSING ---
family picking pt up downstairs. attempted to call report to [facility] x2, left msg on vm
== END 2023-08-19 14:50 | disposition skilled nursing facility (03) ==
LOC: ED 17:12 → MS3 18:27
PROVIDERS: Admitting Provider Internal Medicine; Emergency Provider Emergency Medicine; PCP Family Medicine
DX: N17.9 Acute kidney failure, unspecified (principal); M06.9 Rheumatoid arthritis, unspecified; J44.9 Chronic obstructive pulmonary disease, unspecified; I13.0 Hypertensive heart and chronic kidney disease with heart failure and stage 1 through stage 4 chronic kidney disease, or unspecified chronic kidney disease; I50.32 Chronic diastolic (congestive) heart failure; I27.21 Secondary pulmonary arterial hypertension; I48.0 Paroxysmal atrial fibrillation; N18.32 Chronic kidney disease, stage 3b; I25.10 Atherosclerotic heart disease of native coronary artery without angina pectoris; R19.7 Diarrhea, unspecified; E78.00 Pure hypercholesterolemia, unspecified; R11.2 Nausea with vomiting, unspecified; Z79.899 Other long term (current) drug therapy; E03.9 Hypothyroidism, unspecified; Z79.01 Long term (current) use of anticoagulants; Z79.890 Hormone replacement therapy; N40.0 Benign prostatic hyperplasia without lower urinary tract symptoms; I95.9 Hypotension, unspecified
CPT/HCPCS: 36415; 71045; 80048; 80076; 81001; 83605; 85025; 85610; 87426; 93005; 96360; 96361; 97161; 97166; 97802; 99221; 99285; J7030; J7040; A4216; G0378

== ENCOUNTER → 2023-10-03 | Outpatient (CLI) | payer MEDICARE, OTHER, SELFPAY | END | disposition home or self-care (01) | LOC: MFPLAB 10:59 | PROVIDERS: PCP Family Medicine; Visit Provider Family Medicine | DX: N18.32 Chronic kidney disease, stage 3b (principal) ==

== ENCOUNTER → 2023-10-07 | Outpatient (CLI) | payer MEDICARE, OTHER, SELFPAY ==
--- OUTSIDE RECORDS SUMMARY | 2023-10-07 12:31 | XMS RPT_ITS | CCD ---
Author Name Unknown Address [address] [place] [address] Organization [facility] Care Team Providers [facility] [employer] Paralegal Name Role Phone Marcus Samuel Armand Primary Care Provider Massimo Hurtado (Historic) Primary Care Prov ider Karo Higgins (Retired) Primary Care Provider Joanne Chu Primary Care Provider Allergies Allergy Classification Reported Allergen(s) Allergy Type Date of Onset Reaction(s) Facility (1 source) Adhesive agent Propensity to adverse reactions 05-07-2009 [facility] (1 source) Grass pollen Propensity to adverse reactions 06-24-2005 [facility] (1 source) predniSONE Drug Allergy 07-11-2012 Rash [facility] (1 source) Ragweed Propensity to adverse reactions 06-24-2005 [facility] Medications Completed/Discontinued Medications Medication Drug Class(es) Dates [...] [Coronary atherosclerosis of unspecified type of vessel, cherokee or graft] Onset: 06-18-2005 06-18-2005 Chronic Disorders [...] Patient encounter procedure Eugenio Pichardo Work Phone: [facility] Start: 07-02-2008 Results Only Eugenio Pichardo Work Phone: [facility] Procedures Date Procedure Procedure Detail Performing Clinician Start: 05-16-2014 Colonoscopy Eugenio hernandez Start: 07-03-2008 CONVERTED SURGICAL PATHOLOGY Eugenio Pichardo Work Phone: Start: 07-02-2008 CONVERTED SURGICAL PATHOLOGY Eugenio Indio Pichardo Work Phone: Plan of Treatment Date Care Activity Detail Author Start: 04-29-2020 Influenza vaccination INFLUENZA (#1) [facility] Start: 05-16-2017 Colonoscopy COLONOSCOPY [facility] Start: 09-29-2016 LIPID SCREEN LIPID SCREEN [facility] Start: 08-03-2016 DIABETES SCREEN DIABETES SCREEN [facility] Start: 2006 ADVANCE DIRECTIVE DISCUSSION ADVANCE DIRECTIVE DISCUSSION [facility] Start: 1991 SHINGRIX VACCINE (1 of 2) MORELOS GRIX VACCINE (1 of 2) [facility] Start: 1960 Urine microalbumin profile DTAP,TDAP ,TD (1 - Tdap) [facility] Start: 1959 ANNUAL PCP TEAM FOREIGN DIPLOMAT AVRIL DISEASE VISIT ANNUAL PCP TEAM CHRONIC DISEASE VISIT [facility] Start: 1959 BP CONTROLLED (<130/80) BP CONTROLLE D (<130/80) [facility] Start: 1959 Hepatitis B surface antibody level LDL CHOLESTEROL [facility] Start: 1959 HEPATITIS C SCREENING HEPATITIS C SC JONI [facility] Immunizations Immunization Date Immunization Notes Care Provider Abiodun isbell 07-06-2005 influenza virus vacc ine, unspecified formulation Eugenio Pichardo [facility] Payers Date Payer Category Payer Medicare MEDICARE MEDICAR E B [id number] 2006-Present [place] Medicare [id number] 2005 Private Health Insurance [employer] PPO [id number] 2005-Present PPO [id number] Social History Date Type Detail Facility Start: 09-02-2005 Tobacco smoking stat us IAIS Never smoker [facility] Start: 09-02-2005 Alcohol intake Current non-dr level vial setter of alcohol (finding) [facility] Sex Assigned At Not on file [place] [facility] Additional Source Comments Source Comments (unrecognize d section and content) In the event this informatio n is protected by the Federal Confidentiality of Alcohol and Drug Abuse Patient Records regulations: The Federal rules restrict any use of the information to criminally investigate or prosecute any alcohol or drug abuse patient.[facility] FOR RECORDS PERTAINING TO PATIENTS WHO ARE [...] BE BASED ON THE PRIMARY CLINICAL RECORDS. [facility]. provides no warranty or guarantee of the accuracy or completeness of information in this document.
[2023-10-07 15:45] LABS: Albumin, Serum 3.5 g/dL (3.2-5.0); BUN 38 mg/dL (7-18); BUN/Creat Ratio 13.5 RATIO (10-20); Calcium,Total 9.2 mg/dL (8.5-10.1); Chloride 107 mmol/L (98-107); Creatinine, Serum 2.82 mg/dL (0.70-1.30); EST Glomerular Filtration Rate 23 mL/min (>60); Est Glom Filt Rate - Afr Amer 28 mL/min (>60); Glucose 94 mg/dL (74-106); Magnesium 2.6 mg/dL (1.6-2.6); Phosphorus 3.4 mg/dL (2.5-4.9); Potassium 3.2 mmol/L (3.5-5.1); Sodium Level 141 mmol/L (136-145)
[2023-10-07 16:11] LABS: PTHIN 43.6 pg/mL (18.4-80.1)
== END | disposition home or self-care (01) ==
LOC: LAB.FUTURE 12:10
PROVIDERS: PCP Family Medicine; Visit Provider Family Medicine
DX: N18.32 Chronic kidney disease, stage 3b (principal)
CPT/HCPCS: 36415; 80069; 82306; 83735; 83970

== ENCOUNTER → 2023-11-09 | Outpatient (CLI) | payer MEDICARE, OTHER, SELFPAY ==
[2023-11-09 17:42] LABS: Absolute Lymphocyte Count 0.54 X10^3/uL (0.83-4.51); Absolute Neutrophil Count 7.1 X10^3/uL (2.0-7.7); Basophil# 0.03 X10^3/uL; Basophil% 0.4 % (0-1); Eosinophil# 0.05 X10^3/uL; Eosinophils% 0.6 % (0-5); Hematocrit 36.9 % (40-54); Hemoglobin 11.9 g/dL (13.0-16.5); Lymphocyte # 0.54 X10^3/ul (0.83-4.51); Lymphocyte % 6.4 % (19-41); Mean Corp Hgb Conc 32.2 g/dL (32-36); Mean Corpuscular Hgb 34.1 pg (27.0-32.0); Mean Corpuscular Volume 105.7 fL (80-94); Mean Platelet Vol. 10.4 fl (6.2-12.0); Monocyte# 0.66 X10^3/uL; Monocyte% 7.8 % (0-10); NRBC Flagged by Analyzer 0 % (0-5); Neutrophil # 7.12 X10^3/uL (2.7-7.7); Neutrophil % 84.3 % (47-70); POSITIVE DIFFERENTIAL YES; POSITIVE MORPHOLOGY YES; Platelet Count 276 K/mm3 (150-450); RBC Distribution Width CV 18.9 % (11.6-14.6); RBC Distribution Width SD 74.9 fl (35.1-43.9); Red Blood Count 3.49 M/mm3 (4.6-6.2); White Blood Count 8.4 K/mm3 (4.4-11.0)
[2023-11-09 17:48] LABS: Differential Indicated SCAN CRITERIA MET
[2023-11-09 18:12] LABS: Anion Gap 9 (5-15); BUN 52 mg/dL (7-18); BUN/Creat Ratio 16.8 RATIO (10-20); Chloride 106 mmol/L (98-107); Creatinine, Serum 3.09 mg/dL (0.70-1.30); EST Glomerular Filtration Rate 21 mL/min (>60); Est Glom Filt Rate - Afr Amer 25 mL/min (>60); Glucose 122 mg/dL (74-106); Magnesium 2.7 mg/dL (1.6-2.6); Potassium 3.6 mmol/L (3.5-5.1); Sodium Level 139 mmol/L (136-145)
[2023-11-09 19:03] LABS: Anisocytosis 1+; Differential Comment SCANNED
--- OUTSIDE RECORDS SUMMARY | 2023-11-09 22:43 | XMS RPT_ITS | CCD ---
Author Name Unknown Address [address] [place] [address] Organization [facility] Care Team Providers Care Campaign Worker Name Role Phone Marcus Samuel Armand Primary Care Provider [phone] Massimo Hurtado (Historic) Primary Care Prov ider Karo Higgins (Retired) Primary Care Provider Joanne Chu Primary Care Provider [phone] Allergies Allergy Classification Reported Allergen(s) Allergy Type Date of Onset Reaction(s) Facility (1 source) Adhesive agent Propensity to adverse reactions 05-07-2009 [facility] (1 source) Grass pollen Propensity to adverse reactions 06-24-2005 [facility] (1 source) predniSONE Drug Allergy 07-11-[address] [facility] (1 source) Ragweed Propensity to adverse reactions 06-24-2005 [facility] Medications Completed/Discontinued Medications Medication Drug Class(es) [...] [Coronary atherosclerosis of unspecified type of vessel, koi or graft] Onset: 06-18-2005 06-18-2005 Chronic Disorders [...] Patient encounter procedure Eugenio Pichardo Work Phone: [facility] Start: 07-02-2008 Results Only Eugenio Pichardo Work Phone: [facility] Procedures Date Procedure Procedure Detail Performing Clinician Start: 05-16-2014 Colonoscopy Eugenio hernandez Start: 07-03-2008 CONVERTED SURGICAL PATHOLOGY Eugenio Pichardo Work Phone: Start: 07-02-2008 CONVERTED SURGICAL PATHOLOGY Eugenio Indio Pichardo Work Phone: Plan of Treatment Date Care Activity Detail Author Start: 04-29-2020 Influenza vaccination INFLUENZA (#1) [facility] Start: 05-16-[address] [facility] Start: 09-29-2016 L[address]ID SCREEN LIPID SCREEN [facility] Start: 08-03-2016 DIABETES SCREEN DIABETES SCREEN [facility] Start: 2006 ADVANCE DIRECTIVE DISCUSSION ADVANCE DIRECTIVE DISCUSSION [facility] Start: 1991 SHINGRIX VACCINE (1 of 2) MORELOS GRIX VACCINE (1 of 2) [facility] Start: 1960 Urine microalbumin profile DTAP,TDAP ,TD (1 - Tdap) 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 Start: 1959 BP CONTROLLED (<130/80) BP CONTROLLE D (<130/80) [facility] Start: 1959 Hepatitis B surface antibody level LDL CHOLESTEROL [facility] Start: 1959 HEPATITIS C SCREENING HEPATITIS C SC JONI [facility] Immunizations Immunization Date Immunization Notes Care Provider Abiodun isbell 07-06-2005 influenza virus vacc ine, unspecified formulation Eugenio Pichardo [facility] Payers Date Payer Category Payer Medicare MEDICARE MEDICAR E B [id number] 2006-Present [place] Medicare [id number] 2005 Private Health Insurance [employer] PPO [id number] 2005-Present PPO [id number] Social History Date Type Detail Facility Start: 09-02-2005 Tobacco smoking stat us INIS Never smoker [facility] Start: 09-02-2005 Alcohol intake Current non-dr oyster sorter of alcohol (finding) [facility] Sex Assigned At [facility] Additional Source Comments Source Comments (unrecognize d section and content) In the event this informatio n is protected by the Federal Confidentiality of Alcohol and Drug Abuse Patient Records regulations: The Federal rules restrict any use of the information to criminally investigate or prosecute any alcohol or drug abuse patient.[facility] FOR RECORDS PERTAINING TO PATIENTS WHO [...] BE BASED ON THE PRIMARY CLINICAL RECORDS. [facility] [employer] [facility]. provides no warranty or guarantee of the accuracy or completeness of information in this document.
== END | disposition home or self-care (01) ==
LOC: MFPLAB 16:18
PROVIDERS: PCP Family Medicine; Visit Provider Family Medicine
DX: I50.30 Unspecified diastolic (congestive) heart failure (principal)
CPT/HCPCS: 36415; 80048; 83735; 85025

== ENCOUNTER → 2023-12-23 | Outpatient (CLI) | payer MEDICARE, OTHER, SELFPAY ==
[2023-12-23 17:52] LABS: AST(SGOT) 40 U/L (15-37); Alanine Aminotransfer ALT/SGPT 57 U/L (16-61); Albumin, Serum 3.2 g/dL (3.2-5.0); Alkaline Phosphatase 62 U/L (45-117); Bilirubin, Direct 0.33 mg/dL (0.00-0.30); EST Glomerular Filtration Rate 20 mL/min (>60); Globulin 3.9 g/dL (2.2-4.2); Magnesium 2.4 mg/dL (1.6-2.6); Protein, Total 7.1 g/dL (6.4-8.2)
[2023-12-23 17:58] LABS: PTHIN 74.5 pg/mL (18.4-80.1)
[2023-12-23 18:04] LABS: Vitamin D,25 Hydroxy 40.5 ng/mL
[2023-12-23 18:15] LABS: Microalbumin,Random Urine 24.2 mg/L (NO RANGE EST.); Microalbumin:Creatinine Ratio 37.1 mg/g CRE (<30 mg/g CRE)
== END | disposition home or self-care (01) ==
LOC: MFPLAB 15:28
PROVIDERS: PCP Family Medicine; Visit Provider Internal Medicine Nephrology
DX: N18.32 Chronic kidney disease, stage 3b (principal)
CPT/HCPCS: 36415; 80076; 82043; 82306; 82570; 83735; 83970

== ENCOUNTER → 2024-01-27 | Outpatient (CLI) | payer MEDICARE, OTHER, SELFPAY ==
--- NOTE | 2024-01-27 10:51 | RAD_ITS ---
INDICATION: left shoulder pain EXAMINATION/TECHNIQUE: X-RAY - LEFT XR Shoulder Min 2 Views 4 VIEWS COMPARISON: Prior study dated: 12/31/2010 FINDINGS: SOFT TISSUES: No soft tissue swelling or gas. No radiopaque foreign body. BONES/JOINTS: No acute fracture or subluxation.. Normal alignment. The glenohumeral joint is unremarkable. Mild prominence of the inferior aspect of the outer end of the clavicle. Mild sclerosis of the greater tuberosity. No sclerotic or destructive changes observed. RAD/Shoulder min 2 Views IMPRESSION: Mild degenerative changes Electronically Signed: Nando Benavides MD at 10:57 EDT ,
[2024-01-27 12:20] LABS: Absolute Lymphocyte Count 0.82 X10^3/uL (0.83-4.51); Absolute Neutrophil Count 7.1 X10^3/uL (2.0-7.7); Basophil# 0.08 X10^3/uL; Basophil% 0.9 % (0-1); Eosinophil# 0.18 X10^3/uL; Hematocrit 36.7 % (40-54); Lymphocyte # 0.82 X10^3/ul (0.83-4.51); Lymphocyte % 8.9 % (19-41); Mean Corp Hgb Conc 32.7 g/dL (32-36); Mean Corpuscular Hgb 36.4 pg (27.0-32.0); Mean Corpuscular Volume 111.2 fL (80-94); Mean Platelet Vol. 10.6 fl (6.2-12.0); Monocyte# 0.89 X10^3/uL; Monocyte% 9.7 % (0-10); NRBC Flagged by Analyzer 0 % (0-5); Neutrophil # 7.14 X10^3/uL (2.7-7.7); Neutrophil % 77.8 % (47-70); Platelet Count 242 K/mm3 (150-450); RBC Distribution Width CV 15.5 % (11.6-14.6); RBC Distribution Width SD 63.8 fl (35.1-43.9); White Blood Count 9.2 K/mm3 (4.4-11.0)
[2024-01-27 13:08] LABS: ALB/GLOB Ratio 0.9 RATIO (0.9-2.4); AST(SGOT) 23 U/L (15-37); Alanine Aminotransfer ALT/SGPT 31 U/L (16-61); Albumin, Serum 3.7 g/dL (3.2-5.0); Alkaline Phosphatase 73 U/L (45-117); Anion Gap 9 (5-15); BUN 52 mg/dL (7-18); BUN/Creat Ratio 16.7 RATIO (10-20); Calcium,Total 9.1 mg/dL (8.5-10.1); Chloride 107 mmol/L (98-107); Creatinine, Serum 3.11 mg/dL (0.70-1.30); EST Glomerular Filtration Rate 21 mL/min (>60); Est Glom Filt Rate - Afr Amer 25 mL/min (>60); Glucose 91 mg/dL (74-106); Potassium 3.5 mmol/L (3.5-5.1); Protein, Total 7.7 g/dL (6.4-8.2); Sodium Level 141 mmol/L (136-145)
== END | disposition home or self-care (01) ==
PROVIDERS: PCP Family Medicine; Referring Provider Family Medicine; Visit Provider Family Medicine
DX: M25.512 Pain in left shoulder (principal); N18.30 Chronic kidney disease, stage 3 unspecified
CPT/HCPCS: 36415; 73030; 80053; 85025

== ENCOUNTER → 2024-02-03 | Outpatient (CLI) | payer MEDICARE, OTHER, SELFPAY ==
--- NOTE | 2024-02-03 13:28 | RAD_ITS ---
EXAM: XR CHEST, 2 VIEWS CLINICAL INDICATION: Shortness of breath, hx CHF, CAD, Amiodarone TECHNIQUE: Frontal and lateral views of the chest. COMPARISON: August 18, 2023. July 19 2023. FINDINGS: LUNGS AND PLEURAL SPACES: Unremarkable. No consolidation or edema. No pneumothorax. No effusion. HEART: Borderline-mild cardiomegaly. Suspected moderate hiatal hernia projecting over the heart seen on prior exams. MEDIASTINUM: Central airways and mediastinal contour are unremarkable. BONES/JOINTS: Multilevel vertebroplasty material in the mid and lower thoracic and upper lumbar spine. Similar to prior exam. Apparent eventration of the right hemidiaphragm. Slight if any right effusion. Coarse calcification over the left chest. No acute fracture. SOFT TISSUES: Unremarkable. RAD/Chest PA and Lateral IMPRESSION: Similar exam. Presumed moderate hiatal hernia. Multiple spine vertebroplasty levels. Eventration or scarring at the right lung base. Borderline cardiomegaly. Electronically Signed: Marcella Brian MD at 7:32 EDT ,
[2024-02-03 13:49] LABS: BNP,B-Type NATRIURETIC PEPTIDE 633.9 pg/mL (0-100)
== END | disposition home or self-care (01) ==
LOC: LAB 13:15
PROVIDERS: PCP Family Medicine; Referring Provider Nurse Practitioner Family; Visit Provider Nurse Practitioner Family
DX: I50.43 Acute on chronic combined systolic (congestive) and diastolic (congestive) heart failure (principal); I27.20 Pulmonary hypertension, unspecified; R06.00 Dyspnea, unspecified; Z51.81 Encounter for therapeutic drug level monitoring; Z79.899 Other long term (current) drug therapy
CPT/HCPCS: 36415; 71046; 83880

== ENCOUNTER 2024-02-13 11:29 | Emergency (ER) | payer MEDICARE, OTHER, SELFPAY ==
[2024-02-13 11:30] VITALS: BP 122/75; PULSE 110; RESP 18; TEMP 36.6; O2SAT 99
--- NOTE | 2024-02-13 11:43 | RAD_ITS ---
STUDY: X-RAY CHEST REASON FOR EXAM: Male, 83 years old. Lightheadedness. Shortness of breath and hypertension. TECHNIQUE: PA and lateral views of the chest. COMPARISON: Comparison is made with prior study dated February 03, 2024. FINDINGS: EKG electrodes are seen. Stable mild increased markings at the lung bases suggest some mild basilar scarring. There is no demonstrated pleural abnormality. Normal size heart. Normal mediastinum and nasrin. Normal visualized pulmonary arteries. There is atherosclerotic calcification of the aortic arch with tortuosity. There is demineralization of the osseous structures. Multilevel vertebroplasty with loss of height of the thoracic and lumbar vertebrae. Increased kyphosis. Normal visualized ribs, clavicles, and shoulders. Small hiatal hernia. RAD/Chest PA and Lateral IMPRESSION: Stable mild increased interstitial markings at the lung bases suggestive of scarring. Electronically Signed: Wilfred Milligan MD at 12:16 EDT ,
--- NOTE | 2024-02-13 11:43 | EKG12_ITS ---
Test Reason : SOB Blood Pressure : / mmHG Vent. Rate : 093 BPM Atrial Rate : 093 BPM P-R Int : 284 ms QRS Dur : 106 ms QT Int : 394 ms P-R-T Axes : 040 -23 022 degrees QTc Int : 489 ms Atrial flutter with 2 to 1 block Minimal voltage criteria for LVH, may be normal variant ( [place] product ) Nonspecific ST and T wave abnormality Prolonged QT Abnormal ECG Confirmed by MARCE KASPER, ADAM ([id number]), senior editor CIPRIANO GATES ([id number]) on 02/14/2024 11:24:16 AM Referred By: EVELYN/TYRONE Confirmed By:ADAM ZHENG MD
[2024-02-13 11:50] VITALS: O2SAT 97
--- NOTE | 2024-02-13 11:55 | EDS_ITS ---
HPI <ZACH Chavez - Last Filed: 02/13/24 15:20> History of Present Illness Chief Complaint: Shortness of Breath Narrative Narrative: Patient presenting today due to shortness of breath. He reports that he has been short of breath, for a while. Today it seemed worse. He did have midsternal chest discomfort this morning that has resolved. His shortness of breath is worse with exertion. He does have a PMH of CAD with stent placement, CKD, atrial fibrillation on Coumadin, and CHF. He reports that he was on hospice up until about a month ago, he is unable to tell me why he was on hospice. He denies fevers, chills, recent illness, leg swelling, and cough. PE Risk Factors: Negative for Prior DVT or PE, Recent immobilization, Recent surgery or Recent travel PFSH <ZACH Chavez - Last Filed: 02/13/24 15:20> [facility] Medical History Persistent atrial fibrillation Hearing loss, left Hearing loss, right Anxiety Chronic pain Rheumatoid arthritis COPD (chronic obstructive pulmonary disease) Irregular heart beat Hypertension Hypothyroidism Hiatal hernia Acute constipation Acute exacerbation of chronic low back pain Wears glasses Thyroid disease Ambulates with cane Arthritis History of renal disease Anemia High cholesterol Easy bruising Excessive bleeding History of leukemia Back pain Difficulty chewing History of diverticulitis Gastric reflux Sleep apnea History of pain when walking History of edema History of echocardiogram History of stress test Cardiology follow-up encounter History of heart attack Nausea and vomiting Chronic anemia Diarrhea Colitis Acute kidney injury Sleep apnea Acute kidney injury superimposed on chronic kidney disease On amiodarone therapy Elevated LFTs Thoracic aortic aneurysm (TAA) Chronic heart failure with preserved ejection fraction (HFpEF) Nonrheumatic mitral (valve) insufficiency Atypical atrial flutter (12/2020) Elevated liver enzymes Debility Dysphagia Osteoarthritis History of colon polyps Cancer Kidney stones Kidney disease Non-smoker CPAP (continuous positive airway pressure) dependence Atrial fibrillation Myocardial infarct Chronic renal insufficiency Acute gastrointestinal bleeding Chronic kidney disease Benign prostatic hyperplasia Stage 3b chronic kidney disease GI bleed (2012) Non-rheumatic tricuspid valve insufficiency Secondary pulmonary arterial hypertension Essential (primary) hypertension BPH (benign prostatic hyperplasia) History of hyperthyroidism Paroxysmal atrial fibrillation 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 heart disease of [place] coronary artery without angina pectoris HLD (hyperlipidemia) Home Medications ?Medication ?Instructions ?Recorded ?Last Taken ?Type tamsulosin 0.4 mg capsule 0.4 mg PO QHS bladder 11/18/21 06/20/23 History vitamin B complex 1 cap PO BID supplement 05/01/22 02/12/23 History ascorbic acid (vitamin C) 500 mg 500 mg PO DAILY supplement 07/20/22 06/21/23 History tablet finasteride 5 mg tablet 5 mg PO DAILY prostate 08/05/22 06/21/23 History cholecalciferol (vitamin D3) 25 1,000 unit PO DAILY supplement 02/19/23 Unknown History mcg (1,000 unit) capsule (Vitamin D3) polyethylene glycol 3350 17 gram 17 g PO DAILY constipation 02/19/23 Unknown History oral powder packet amiodarone 100 mg tablet 100 mg PO BID heart 02/21/23 06/21/23 History sucralfate 1 gram tablet 1 g PO TID@0700,1100,1600 stomach 03/21/23 06/21/23 Rx 30 days #90 tabs loratadine 10 mg tablet (Claritin) 10 mg PO DAILY allergies 06/16/23 Unknown History warfarin 3 mg tablet (Jantoven) 3 mg PO SuTuThSa@1700 blood 06/21/23 06/19/23 Rx thinner #0 tabs warfarin 4 mg tablet See Rx Instructions .Route 06/21/23 06/20/23 Rx .COMPLEX blood thinner #60 tabs metoprolol tartrate 25 mg tablet 25 mg PO BID BP #0 tabs 07/06/23 Unknown Rx empagliflozin 10 mg tablet 10 mg PO DAILY Diabetes #0 tabs 07/22/23 Unknown Rx (Jardiance) hydralazine 50 mg tablet 50 mg PO 4X/DAY BP #0 tabs 07/22/23 Unknown Rx nitroglycerin 0.4 mg sublingual 0.4 mg sublingual Q5M PRN 07/22/23 Unknown Rx tablet Cardiac/Chest Pain #0 tabs acetaminophen 500 mg tablet 1,000 mg (2 x 500 mg) PO Q6H PRN 08/04/23 Unknown Rx PRN PAIN 1-10 #0 tabs acidophilus 25 million 2 tab PO BID #0 tabs 08/04/23 Unknown Rx cell-pectin, citrus 100 mg tablet albuterol sulfate 2.5 mg/3 mL 2.5 mg (3 mL) inhalation Q6HWA.RT 08/04/23 Unknown Rx (0.083 %) solution for nebulization #0 mL famotidine 20 mg tablet 20 mg PO DAILY #0 tabs 08/04/23 Unknown Rx lactulose 20 gram/30 mL oral 10 g (15 mL) PO DAILY #0 mL 08/04/23 Unknown Rx solution levothyroxine 50 mcg tablet 50 mcg PO 0600 #0 tabs 08/04/23 Unknown Rx magnesium chloride 64 mg 128 mg (2 x 64 mg) PO BID #0 tabs 08/04/23 Unknown Rx (magnesium chloride) tablet,delayed release (Mag 64) melatonin 3 mg tablet 3 mg PO QHS PRN PRN Insomnia #0 08/04/23 Unknown Rx tabs potassium chloride 20 mEq 40 meq (2 x 20 mEq) PO BIDCM #0 08/04/23 Unknown Rx tablet,extended release(part/cryst) tabs sodium chloride 0.65 % nasal spray 2 spray NASAL TID PRN PRN NASAL 08/04/23 Unknown Rx aerosol (Deep Sea Nasal) DRYNESS #0 mL ranolazine 500 mg tablet,extended 500 mg PO BID #60 tabs 02/03/24 Unknown Rx release,12 hr furosemide 40 mg tablet 80 mg (2 x 40 mg) PO BID dose 02/07/24 Unknown Rx increased by Dr. Gudino #120 tabs Allergy/AdvReac Type Severity Reaction Status Date / Time diclofenac Allergy rash Verified 02/13/24 11:30 prednisone Allergy Rash Verified 02/13/24 11:30 Family History Father Cancer Prostate cancer Mother Hypertension Sister Hypertension Surgical History History of back surgery History of cardiac catheterization History of esophagogastroduodenoscopy (EGD) History of cardioversion (06/18/19) History of radiofrequency ablation procedure for cardiac arrhythmia (11/11/11) History of electrophysiologic study (08/08/00) History of left heart catheterization (07/17/12) History of hemorrhoidectomy History of Zenaida fundoplication History of coronary artery stent placement (08/04/00) History of hernia repair History of back surgery Social History household members: none Smoking Status: Never smoker alcohol intake: never substance use type: does not use caffeine: No ROS <ZACH Chavez - Last Filed: 02/13/24 15:20> ROS ED Constitutional Constitutional ED: Denies chills or fever(s) Cardiovascular Cardiovascular: Denies chest pain or palpitations Respiratory/Chest Respiratory/Chest: Reports dyspnea and dyspnea on exertion; Denies cough Gastrointestinal Gastrointestinal: Denies abdominal pain, nausea or vomiting Musculoskeletal Musculoskeletal: Denies arthralgias or myalgias Integumentary Denies rash Neurologic Neurologic: Denies weakness EXAM <ZACH Chavez - Last Filed: 02/13/24 15:20> Physical Exam Const Vital Signs: 02/13/24 11:30 02/13/24 11:49 02/13/24 11:50 Temperature 97.9 F Temperature Source Temporal Pulse Rate 110 H Respiratory Rate 18 Respiratory Effort Normal Respiratory Depth Normal Respiratory Pattern Normal Blood Pressure 122/75 H Blood Pressure Mean 90 Pulse Ox 99 Oxygen Delivery Method Room Air Room Air Room Air 02/13/24 13:25 02/13/24 15:00 Temperature Temperature Source Pulse Rate 88 88 Respiratory Rate 18 18 Respiratory Effort Respiratory Depth Respiratory Pattern Blood Pressure 128/76 H 149/93 H Blood Pressure Mean 93 111 Pulse Ox 96 98 Oxygen Delivery Method Room Air Room Air Positive well nourished, well developed and no apparent distress General Appearance ED: well developed HEENT Reports normocephalic and head/scalp atraumatic Mouth ED: Yes moist mucous membranes normal Eyes PERRL and EOMs intact bilaterally Neck full ROM and supple Chest Wall inspection of chest normal Resp normal respiratory effort and clear to auscultation bilaterally Cardio regular rate and regular rhythm GI soft to palpation, non-tender, non-distended and no masses Back/Spine normal ROM and normal to inspection Extremity normal to inspection and full ROM Neuro oriented x3, CN's II-XII intact bilaterally, moves all extremities, no focal motor deficits and no sensory deficits noted Sensorium / Orientation: awake and alert Psych mental status grossly normal and thought process normal Skin no rashes or lesions noted and no wounds <Dr. Steve Mckeon MD - Last Filed: 02/13/24 15:12> Physical Exam Const Vital Signs: 02/13/24 11:30 02/13/24 11:49 02/13/24 11:50 Temperature 97.9 F Temperature Source Temporal Pulse Rate 110 H Respiratory Rate 18 Respiratory Effort Normal Respiratory Depth Normal Respiratory Pattern Normal Blood Pressure 122/75 H Blood Pressure Mean 90 Pulse Ox 99 Oxygen Delivery Method Room Air Room Air Room Air 02/13/24 13:25 02/13/24 15:00 Temperature Temperature Source Pulse Rate 88 88 Respiratory Rate 18 18 Respiratory Effort Respiratory Depth Respiratory Pattern Blood Pressure 128/76 H 149/93 H Blood Pressure Mean 93 111 Pulse Ox 96 98 Oxygen Delivery Method Room Air Room Air [facility] <ZACH Chavez - Last Filed: 02/13/24 15:20> [facility] Narrative Medical decision making narrative: Patient presenting today due to shortness of breath, he does have a sporadically but it was worse today. Was previously on home O2 but no longer is. He had a echo in 07/21 that showed an EF of 35%. He does follow with cardiology. When reviewing his previous cardiology notes the provider advised him to discontinue his Coumadin due to history of GI bleed, patient thinks that he is still taking it. His hemoglobin here is stable at 13.7. Potassium 3.3, BUN 50, creatinine 2.6, kidney function appears to be near baseline. BNP 915, chest x-ray shows chronic changes. Patient is not hypoxic, he has consistently stayed above 96% on room air. Shortness of breath is chronic for him. He feels comfortable following up as an outpatient and will be discharged home in stable condition. I have personally performed a face to face assessment of the patient and have reviewed the SIRIA Note. I performed a substantive portion of the visit including all aspects of the following. My bautista findings include: History is 83-year-old male history of CHF with a EF of 35%. Says he is chronically short of breath. He was on home oxygen he is not on it now. Says he was more short of breath today than his baseline. Denies any fever. No leg pain or significant swelling. No recent significant new cough. States he has been moving his bowels and urinating normally. Has not noticed any bloody sto ols. He is on Coumadin for history of A-fib. Exam is [well-appearing 83-year-old male sitting upright in bed. No one else is in the room. His vital signs are stable and afebrile. He is in a sinus rhythm. Heart rates about 100. His pulse ox is 96 to 99% on room air. No hypoxia. H EENT exam unremarkable. Neck nontender. No JVD. Lungs clear to auscultation bilaterally. Heart regular rate and rhythm rate about 100. Chest wall nontender. Abdomen soft nontender. Moving all 4 extremities. Brace on his left ankle. Calves are nontender without edema. Neurologically is awake and alert with no focal motor deficits. Answering questions following commands.] Medical Decision Making [83-year-old male with acute on chronic shortness of breath. Could be cardiac versus CHF versus anemia versus other etiologies. Exam is benign. Cardiac workup.] Other additions or changes: [Repeat exam patient is doing well at 3 PM. His pulse ox is in the mid to high 90s. He is in no distress. He and I discussed all his test results. There is really no specific reason to admit in the hospital. He is currently eating applesauce and drinking Sprite. He is comfortable being discharged home with outpatient follow-up.] Lab Data Labs: Laboratory Results - last 24 hr 02/13/24 11:45 WBC 10.9 RBC 3.68 L Hgb 13.7 Hct 40.0 MCV 108.7 H MCH 37.2 H MCHC 34.3 RDW Std Deviation 63.7 H RDW Coeff of Pablo 15.8 H Plt Count 222 MPV 10.1 Immature Gran % (Auto) 0.400 Neut % (Auto) 83.1 H Lymph % (Auto) 7.4 L Grand % (Auto) 8.0 Eos % (Auto) 0.6 Baso % (Auto) 0.5 Absolute Neuts (auto) 9.1 H Absolute Lymphs (auto) 0.81 L Nucleated RBC % 0 PT 15.7 H INR 1.3 Sodium 137 Potassium 3.3 L Chloride 105 Carbon Dioxide 24.0 Anion Gap 8 BUN 50 H Creatinine 2.86 H Est GFR (MDRD) Af Amer 27 L Est GFR (MDRD) Non-Af 23 L BUN/Creatinine Ratio 17.5 Glucose 115 H Calcium 9.5 Troponin I High Sens 28 B-Natriuretic Peptide 915.2 H Radiography Diagnostic Testing: Clinical Impression(s) from Imaging Studies Chest X-Ray 02/13/24 11:43 IMPRESSION: Stable mild increased interstitial markings at the lung bases suggestive of scarring. Electronically Signed: Wilfred Milligan MD at 12:16 EDT , EKG Initial EKG: Comments: 93 bpm, sinus rhythm, first-degree AV block no change in comparison to EKG from July 2023. Reviewed and interpreted by attending ED physician <Dr. Steve Mckeon MD - Last Filed: 02/13/24 15:12> [facility] MDM Narrative Medical decision making narrative: Patient presenting today due to shortness of breath, he does have a sporadically but it was worse today. Was previously on home O2 but no longer is. He had a echo in 07/21 that showed an EF of 35%. He does follow with cardiology. When reviewing his previous cardiology notes the provider advised him to discontinue his Coumadin due to history of GI bleed, patient reports that he is still taking it. His hemoglobin here is stable at 13.7. I have personally performed a face to face assessment of the patient and have reviewed the SIRIA Note. I performed a substantive portion of the visit including all aspects of the following. My bautista findings include: History is 83-year-old male history of CHF with a EF of 35%. Says he is chronically short of breath. He was on home oxygen he is not on it now. Says he was more short of breath today than his baseline. Denies any fever. No leg pain or significant swelling. No recent significant new cough. States he has been moving his bowels and urinating normally. Has not noticed any bloody stools. He is on Coumadin for history of A-fib. Exam is [well-appearing 83-year-old male sitting upright in bed. No one else is in the room. His vital signs are stable and afebrile. He is in a sinus rhythm. Heart rates about 100. His pulse ox is 96 to 99% on room air. No hypoxia. H EENT exam unremarkable. Neck nontender. No JVD. Lungs clear to auscultation bilaterally. Heart regular rate and rhythm rate about 100. Chest wall nontender. Abdomen soft nontender. Moving all 4 extremities. Brace on his left ankle. Calves are nontender without edema. Neurologically is awake and alert with no focal motor deficits. Answering questions following commands.] Medical Decision Making [83-year-old male with acute on chronic shortness of breath. Could be cardiac versus CHF versus anemia versus other etiologies. Exam is benign. Cardiac workup.] Other additions or changes: [Repeat exam patient is doing well at 3 PM. His pulse ox is in the mid to high 90s. He is in no distress. He and I discussed all his test results. There is really no specific reason to admit in the hospital. He is currently eating applesauce and drinking Sprite. He is comfortable being discharged home with outpatient follow-up.] History & Record Review Discussion w/independent historian: Patient Additional record(s) reviewed:: Prior inpatient record, Prior outpatient record, Prior ED visit and Prior labs Lab Data Attestation: I reviewed the patient's lab results. Lab results narrative: CBC shows a white count of 10. H&H of 13 and 40. Platelets 222. INR is 1.3. Electrolytes show potassium 3.3. Gap of 8. BUN and creatinine are 15 and 2.8 he has chronic kidney disease. Troponin 8. BNP is 915. Labs: Laboratory Results - last 24 hr 02/13/24 11:45 WBC 10.9 RBC 3.68 L Hgb 13.7 Hct 40.0 MCV 108.7 H MCH 37.2 H MCHC 34.3 RDW Std Deviation 63.7 H RDW Coeff of Pablo 15.8 H Plt Count 222 MPV 10.1 Immature Gran % (Auto) 0.400 Neut % (Auto) 83.1 H Lymph % (Auto) 7.4 L Grand % (Auto) 8.0 Eos % (Auto) 0.6 Baso % (Auto) 0.5 Absolute Neuts (auto) 9.1 H Absolute Lymphs (auto) 0.81 L Nucleated RBC % 0 PT 15.7 H INR 1.3 Sodium 137 Potassium 3.3 L Chloride 105 Carbon Dioxide 24.0 Anion Gap 8 BUN 50 H Creatinine 2.86 H Est GFR (MDRD) Af Amer 27 L Est GFR (MDRD) Non-Af 23 L BUN/Creatinine Ratio 17.5 Glucose 115 H Calcium 9.5 Troponin I High Sens 28 B-Natriuretic Peptide 915.2 H Radiography Chest X-Ray - ED: 1 View and Read by ED Physician Diagnostic Testing: Clinical Impression(s) from Imaging Studies Chest X-Ray 06/17/24 11:43 IMPRESSION: Stable mild increased interstitial markings at the lung bases suggestive of scarring. Electronically Signed: Wilfred Milligan MD at 12:16 EDT , Discharge Plan Triage Chief Complaint: Shortness of Breath Other Complaint: Cough ED Midlevel Provider: Franchesca Braxton ED Provider: Steve Mckeon Dx/Rx/DC Orders Clinical Impression: Shortness of breath, CKD (chronic kidney disease), CHF (congestive heart failure), Hypokalemia Instructions: ED Heart Failure, Congestive (CHF), ED Dyspnea Prescriptions: No Action tamsulosin 0.4 mg capsule 0.4 mg PO QHS ascorbic acid (vitamin C) 500 mg tablet 500 mg PO DAILY finasteride 5 mg tablet 5 mg PO DAILY vitamin B complex Capsule 1 cap PO BID polyethylene glycol 3350 17 gram Powder In Packet 17 g PO DAILY cholecalciferol (vitamin D3) [Vitamin D3] 25 mcg (1,000 unit) Capsule 1,000 unit PO DAILY amiodarone 100 mg tablet 100 mg PO BID sucralfate 1 gram Tablet 1 g PO TID@0700,1100,1600 30 Days Qty: 90 0RF metoprolol tartrate 25 mg Tablet 25 mg PO BID Qty: 0 0RF nitroglycerin 0.4 mg Tablet, Sublingual 0.4 mg sublingual Q5M PRN (Reason: Cardiac/Chest Pain) Qty: 0 0RF hydralazine 50 mg Tablet 50 mg PO 4X/DAY Qty: 0 0RF Jardiance 10 mg Tablet 10 mg PO DAILY Qty: 0 0RF loratadine [Claritin] 10 mg tablet 10 mg PO DAILY warfarin [Jantoven] 3 mg Tablet 3 mg PO SuTuThSa@1700 Qty: 0 0RF warfarin 4 mg tablet See Rx Instructions .Route .COMPLEX Qty: 60 0RF Protocol: Dose Management Condition: Tuesday Dose/Route: 4 mg Instruction: 1 x 4 mg tablet Condition: Tuesday Dose/Route: 4 mg Instruction: 1 x 4 mg tablet Condition: Tuesday Dose/Route: 4 mg Instruction: 1 x 4 mg tablet Condition: Tuesday Dose/Route: 4 mg Instruction: 1 x 4 mg tablet Condition: Dose/Route: 2 mg Instruction: 1 x 2 mg tablet Condition: Tuesday Dose/Route: 2 mg Instruction: 1 x 2 mg tablet Condition: Tuesday Dose/Route: 2 mg Instruction: 1 x 2 mg tablet Protocol Text: Adjustment Start Date: Tuesday06/17/23 INR Value: 1.7 INR Date: 06/17/23 Recheck Date: 06/24/23 Rx Instructions: 4mg Tue, Tue, Tue. 3mg Tue, , , Sat orally; albuterol sulfate 2.5 mg /3 mL (0.083 %) Solution For Nebulization 2.5 mg inhalation Q6HWA.RT Qty: 0 0RF melatonin 3 mg Tablet 3 mg PO QHS PRN PRN (Reason: Insomnia) Qty: 0 0RF acetaminophen 500 mg Tablet 1,000 mg PO Q6H PRN PRN (Reason: PAIN 1-10) Qty: 0 0RF potassium chloride 20 mEq Tablet,Er Particles/Crystals 40 meq PO BIDCM Qty: 0 0RF famotidine 20 mg Tablet 20 mg PO DAILY Qty: 0 0RF levothyroxine 50 mcg Tablet 50 mcg PO 0600 Qty: 0 0RF Deep Sea Nasal 0.65 % Aerosol,[place] 2 spray NASAL TID PRN PRN (Reason: NASAL DRYNESS) Qty: 0 0RF acidophilus-pectin, citrus 25 million cell -100 mg Tablet 2 tab PO BID Qty: 0 0RF magnesium chloride [Mag 64] 64 mg Tablet,Delayed Release (Dr/Ec) 128 mg PO BID Qty: 0 0RF lactulose 20 gram/30 mL Solution 10 g PO DAILY Qty: 0 0RF ranolazine 500 mg tablet extended release 12 hr 500 mg PO BID Qty: 60 11RF furosemide 40 mg tablet 80 mg PO BID Qty: 120 11RF Primary Care Provider: César Chinchilla Referrals: César Chinchilla MD [Primary Care Provider] - 5-7 Days Activity Restrictions/Additional Instructions: Follow-up with your PCP and return for any worsening of your symptoms. Print Language: Yoruba Disposition Disposition: Home, Self Care
[2024-02-13 11:57] LABS: Absolute Lymphocyte Count 0.81 X10^3/uL (0.83-4.51); Absolute Neutrophil Count 9.1 X10^3/uL (2.0-7.7); Basophil# 0.05 X10^3/uL; Basophil% 0.5 % (0-1); Eosinophil# 0.06 X10^3/uL; Eosinophils% 0.6 % (0-5); Hemoglobin 13.7 g/dL (13.0-16.5); Lymphocyte # 0.81 X10^3/ul (0.83-4.51); Lymphocyte % 7.4 % (19-41); Mean Corp Hgb Conc 34.3 g/dL (32-36); Mean Corpuscular Hgb 37.2 pg (27.0-32.0); Mean Corpuscular Volume 108.7 fL (80-94); Mean Platelet Vol. 10.1 fl (6.2-12.0); Monocyte# 0.87 X10^3/uL; NRBC Flagged by Analyzer 0 % (0-5); Neutrophil # 9.07 X10^3/uL (2.7-7.7); Neutrophil % 83.1 % (47-70); Platelet Count 222 K/mm3 (150-450); RBC Distribution Width CV 15.8 % (11.6-14.6); RBC Distribution Width SD 63.7 fl (35.1-43.9); Red Blood Count 3.68 M/mm3 (4.6-6.2); White Blood Count 10.9 K/mm3 (4.4-11.0)
[2024-02-13 12:00] LABS: International Normalized Ratio 1.3; Prothrombin Time (Protime)PT. 15.7 SECONDS (11.7-14.9)
[2024-02-13 12:12] LABS: Anion Gap 8 (5-15); BUN 50 mg/dL (7-18); BUN/Creat Ratio 17.5 RATIO (10-20); Calcium,Total 9.5 mg/dL (8.5-10.1); Chloride 105 mmol/L (98-107); Creatinine, Serum 2.86 mg/dL (0.70-1.30); EST Glomerular Filtration Rate 23 mL/min (>60); Est Glom Filt Rate - Afr Amer 27 mL/min (>60); Glucose 115 mg/dL (74-106); Potassium 3.3 mmol/L (3.5-5.1); Sodium Level 137 mmol/L (136-145); Troponin-I HS 28 pg/mL (3.0-78.0)
[2024-02-13 13:25] VITALS: BP 128/76; PULSE 88; RESP 18; O2SAT 96
--- NOTE | 2024-02-13 13:46 | ED.RN ---
Called lab about pending BNP results. Blood now getting ran
[2024-02-13 13:59] LABS: BNP,B-Type NATRIURETIC PEPTIDE 915.2 pg/mL (0-100)
[2024-02-13 15:00] VITALS: BP 149/93; PULSE 88; RESP 18; O2SAT 98
[2024-02-13 15:22] VITALS: BP 149/93; PULSE 88; RESP 17; TEMP 36.3; O2SAT 97
== END 2024-02-13 15:23 | disposition home or self-care (01) ==
PROVIDERS: Physician Assistant; Emergency Provider Emergency Medicine; PCP Family Medicine; Visit Provider Emergency Medicine
DX: E87.6 Hypokalemia (principal); I13.0 Hypertensive heart and chronic kidney disease with heart failure and stage 1 through stage 4 chronic kidney disease, or unspecified chronic kidney disease; I50.32 Chronic diastolic (congestive) heart failure; J44.9 Chronic obstructive pulmonary disease, unspecified; I48.0 Paroxysmal atrial fibrillation; N18.32 Chronic kidney disease, stage 3b; Z95.5 Presence of coronary angioplasty implant and graft; I25.10 Atherosclerotic heart disease of native coronary artery without angina pectoris; Z79.01 Long term (current) use of anticoagulants; I25.2 Old myocardial infarction; E78.00 Pure hypercholesterolemia, unspecified; N40.0 Benign prostatic hyperplasia without lower urinary tract symptoms; Z79.899 Other long term (current) drug therapy; K21.9 Gastro-esophageal reflux disease without esophagitis; E03.9 Hypothyroidism, unspecified
CPT/HCPCS: 71046; 80048; 83880; 84484; 85025; 85610; 93005; 99284; A4216

== ENCOUNTER 2024-03-06 13:00 | Outpatient (RCR) | payer MEDICARE, OTHER, SELFPAY ==
--- NOTE | 2024-01-02 18:35 | HP.PTEVAL_ITS ---
Patient's Visit Information Visit Information Visit Information: RICHIE HANSEN is a 83 year old M referred to Physical Therapy by Dr. 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 Date of Evaluation: 01/02/24 Physical Therapist: Marielle Gomes PT, Cert MDT Visit Plan Frequency: 2-3x /Week Duration: 4-6 Weeks Plan: *Painful - MH and/or CP as needed for comfort. Avoid increased pain with exercise. Recently on hospice. Neutral Spine Core Stability Exercises and Leesa LE Hip Flexor, Hamstring and Calf Stretching to help reduce stress to the Lumbar Spine with all Daily Activities. Leesa LE Strengthening. Gait and Balance Training. Instruction in Proper Posture Control, Body Mechanics, and Appropriate Activity Modifications. HEP Instruction. Subjective Subjective: Work/Leisure: RETIRED. LIVES ALONE IN HOUSE WITH 2 STEPS IN WITH HR AND BASEMENT. WAS ON HOSPICE FOR LUNGS AND HEART UNTIL TUESDAY WHEN HE DECIDED TO DISCHARGE HOSPICE SO HE COULD GO TO [facility] BY CHOICE. Present symptoms: C/O LOW BACK PAIN R > LEFT. HE REPORTS IT STARTED ON THE RIGHT BUT ALSO ON THE LEFT SOME TOO. ALSO REPORTS L LEG CHRONIC WEAKNESS AND NO NEW LEG WEAKNESS. Present since: A FEW MONTHS AGO Pain Scale: WORST 8/10, LEAST 2/10 Currently: 2/10 Is it getting better, worse or staying the same: GETTING WORSE Commenced as a result of: NO APPARENT REASON Symptoms at onset: R LOW BACK PAIN Worse: STANDING, WALKING, LAYING DOWN - ESPECIALLY AT NIGHT, ANYTHING Better: SITTING Disturbed sleep: YES - HEAD ELEVATED Previous history/Previous treatment: PAIN CREAM - TEMPORARY RELIEF. 3 BACK SURGERIES WITH THE LAST ONE BEING ABOUT 10 YEARS AGO. PAIN MGMT INCLUDING LAST YEAR WITH DR. REBOLLAR WITH SOME BENEFIT. PATIENT DENIES ANY NEW RECENT TREATMENT FOR HIS BACK. Coughing/sneezing/straining: PATIENT REPORTS INCREASED PAIN WITH COUGHING. Gait: PATIENT HE GETS AROUND MOSTLY WITH A CANE. HE ALSO HAS A WALKER THAT HE USES WHEN HIS L FOOT REALLY FLARES UP. Bowel or Bladder Dysfunction: NO Accidents: NO Unexplained weight loss: NO Imaging: NONE RECENT PMH/Recent major surgery: SEE [facility] EMR Objective Objective: Sitting/Standing Posture: VERY SCOLIOTIC SPINE WITH INCREASED KYPHOSIS. SPINE IS RIGID AND TENDER IN RIGHT LOW BACK REGION. Other Observations: THIS PATIENT AMBULATES INDEP'LY INTO PT WITH A STRAIGHT CANE WITH SLOW FRIDA, SHORT LEESA STRIDE LENGTH BUT NO LOB X APPROX 300 FEET. Sensory deficit: LEESA LE LIGHT TOUCH SENSATION GROSSLY INTACT AND SYMMETRICAL ROM deficit: TIGHT LEESA HIP FLEXORS, HS, GASTROC SOLEUS COMPLEX'S. L ANKLE IS IN AN AKLE BRACE LIMITING INVERSION/EVERSION BUT ALSO HAS LIMITED ACTIVE DORSI AND PLANTAR FLEXION ROM. Motor deficit: R HIP 4-/5, KNEE 4-/5, ANKLE 4/5. L HIP 4-/5, KNEE 4-/5, L ANKLE LESS THAN 3/5. L ANKLE DORSI FLEX IS APPROX 2+/5 AND PLANTAR IS negligible. Lumbar mvmt loss: flex - min to mod - tested in seated. Patient is able to bend over to tie shoes. ext - major R SG - major L SG - major Core strength: POOR Palpation: TENDERNESS WITH PALPATION OF RIGHT LUMBAR REGION. TUG TIME: 26.[address] CANE 30 STS: ONE UE ASSIST AND ST CANE X 3. (INCREASES R LBP). Balance/Special Test Scores Oswestry Low Back Score: 32 Goals Goal 1:: DECREASE C/O LOW BACK PAIN BY AT LEAST 50% TO EASE ADL'S. Goal Time Frame: 4-6 Weeks Goal 2:: PATIENT WILL COMPLETE 6 STANDS IN 30 SECS WITH ONE UE ASSIST TO DEMONSTRATE IMPROVED FUNCTIONAL STRENGTH Goal Time Frame: 4-6 Weeks Goal 3:: PATIENT WILL COMPLETE TUG IN < 20 SECS TO DEMONSTRATE IMPROVED GAIT STABILITY Goal Time Frame: 4-6 Weeks Goal 4:: PATIENT WILL BE INDEP WITH A HEP FOR CONTINUED IMPROVEMENT ONCE FORMAL PHYSICAL THERAPY CONCLUDES. Goal Time Frame: 4-6 Weeks Rehabilitation Potential Physical Therapy Diagnosis: THIS PATIENT PRESENTS TO PT WITH C/O LOW BACK PAIN R>L. HE HAS TRUNK AND LE STIFFNESS AND WEAKNESS ALONG WITH DIFFICULTY WITH GAIT. Rehabilitation Potential: Fair Anticipated Interventions Patient/Client Instruction: Educate patient on: Condition, Plan of Care and Risk Factors For the Purpose of:: To improve self management Therapeutic Exercise to Include: Strength training, Body mechanics, Postural training, Flexibilty training, Gait and locomotor training, Neuromotor development and Dynamic Lumbar Stabilization For the Purpose of:: To decrease pain, To increase ROM, To improve muscle performance and motor function, To increase tolerance to activity/condition/position, To improve ability of physical actions for home/community/work/leisure, To improve gait and locomotor functions and To increase flexibility/ROM Cryotherapy (ice pack, ice massage): Yes Thermo therapy (hot pack): Yes For the Purpose of:: To decrease pain, To decrease swelling/inflammation and To improve nutrient delivery to tissue Text: Thank you for the opportunity to evaluate your patient. For Medicare and Medicare HMO plans, please review the plan of care and approve it. It will need to be FAXED BACK to us at [phone] for Medicare purposes. For Medicare only, by signing this I certify the plan of care. Please let me know if there are questions or concerns regarding this plan of care. Physician Signature: Date:
--- NOTE | 2024-02-02 13:45 | HP.PTREVAL ---
Re-Evaluation Intro: Dr. 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 Please see the progress note below for an update on the physical therapy plan of care! Subjective Subjective: PATIENT REPORTS 10% IMPROVEMENT IN HIS BACK PAIN SINCE STARTING PT AND STATES HE WANTS TO CONTINUE PT FOR HIS BACK AND L SHLD. HE IS R HAND DOMINANT. HE REPORTS HIS BACK PAIN ISN'T BAD IT WAS BUT THE MORE HE TRIES TO DO THE MORE IT HURTS. PATIENT REPORTS HIS LEFT SHLD STARTED HURTING IN AUG 2023 WHEN HE LOST A LOT OF WEIGHT WHEN HE WAS SICK. HE DENIES AN INJURY TO HIS SHOULDER. HIS L SHOULDER PAIN RANGES FROM 2-7/10. INCREASED L SHLD PAIN WITH L SDLYING, USING L ARM, TRYING TO LIFT ANYTHING OVER 5 LBS, GETTING DRESSED, AND EVEN SOMETIMES AT REST IN SITTING. DECREASED L SHLD PAIN WITH - PUTTING L HAND IN LOWER BACK AND HEATING PAD AND NOT MOVING IT IN GENERAL. PATIENT DENIES ANY PRIOR L SHLD TREATMENTS INCLUDING SURGERY OR INJECTIONS. PATIENT REPORTS DR. CHINCHILLA RECOMMENDS HE TRIES PT FOR HIS SHLD. SEE RECENT L SHLD X-RAY RESULTS BELOW. INDICATION: left shoulder pain EXAMINATION/TECHNIQUE: X-RAY - LEFT XR Shoulder Min 2 Views 4 VIEWS COMPARISON: Prior study dated: 12/31/2010 FINDINGS: SOFT TISSUES: No soft tissue swelling or gas. No radiopaque foreign body. BONES/JOINTS: No acute fracture or subluxation.. Normal alignment. The glenohumeral joint is unremarkable. Mild prominence of the inferior aspect of the outer end of the clavicle. Mild sclerosis of the greater tuberosity. No sclerotic or destructive changes observed. RAD/Shoulder min 2 Views IMPRESSION: Mild degenerative changes Electronically Signed: Nando Benavides MD at 10:57 EDT Objective Objective/Function: PATIENT IS MAKIING SLOW PROGRESS WITH LE STRENGTHENING AND IS A GOOD CANDIDATE TO CONTINUE PT FOR HIS BACK IN ADDITION TO STARTING PT FOR HIS SHOULDERS. HE HAS L ROTATOR CUFF WEAKNESS >R BUT LEESA SHLD WEAKNESS AND STIFFNESS. UPON EXAM TODAY: Objective: Sitting/Standing Posture: VERY SCOLIOTIC SPINE WITH INCREASED KYPHOSIS, FH AND RSH'S. SPINE IS RIGID AND TENDER IN RIGHT LOW BACK REGION. Other Observations: THIS PATIENT AMBULATES INDEP'LY INTO PT WITH A STRAIGHT CANE WITH SLOW FRIDA, SHORT LEESA STRIDE LENGTH BUT NO LOB X APPROX 300 FEET. Sensory deficit: LEESA UE AND LE LIGHT TOUCH SENSATION GROSSLY INTACT AND SYMMETRICAL UE ROM: LE STIFFNESS UNCHANGED. AROM R SHLD FLEX 108 DEG, ABD 105 DEG, ER 31 DEG. L SHLD FLEX 93 DEG, ABD 76 DEG, ER 19 DEG. ER MEASURED IN SITTING WITH ELBOWS AT SIDES. C/O IPSILATERAL SHLD PAIN WITH FLEX, ABD AND ER ROM TESTING BUT NOT IR TESTING AND IR ROM WFL LEESA AND PATIENT ACTUALY HAS MORE IR L THAN R. Motor deficit: R HIP 4/5, KNEE 4/5, ANKLE 4/5. L HIP 4-/5, KNEE 4-/5 (In available ROM), L ANKLE LESS THAN 3/5. L ANKLE DORSI FLEX IS APPROX 2+/5 AND PLANTAR IS negligible. R SHLD GROSSLY 3+/5, ELBOW 4/5. L SHLD 3-/5, ELBOW 4-/5. Lumbar mvmt loss: flex - min to mod - tested in seated. Patient is able to bend over to tie shoes. flex - mod - when tested in standing ext - major R SG - major L SG - major CERVICAL MVMT LOSS: FLEX - MIN PRO - NIL EXT - PAM RET - PAM R ROT - MOD L ROT - MOD TO PAM R SB - MOD L SB - MOD PATIENT C/O POST NECK STIFFNESS/PULLING WITH CERVICAL ROM TESTING ALL PLANES. PATIENT C/O INCREASED R BACK PAIN WITH LUMBAR LEESA SG TESTING IN STANDING. Core strength: POOR Palpation: TENDERNESS WITH PALPATION OF RIGHT LUMBAR REGION. TUG TIME: 26.[address] CANE 30 STS: ONE UE ASSIST AND ST CANE X 5. PATIENT DENIES INCREASED PAIN WITH STS TEST TODAY. Plan Plan Plan: Give Pictures to add to written HEP ea visit. *Painful - MH and/or CP as needed for comfort to neck, shoulders and low back. Avoid increased pain with exercise. Recently on hospice. Neutral Spine Core Stability Exercises and Leesa LE Hip Flexor, Hamstring and Calf Stretching to help reduce stress to the Lumbar Spine with all Daily Activities. Gentle Leesa Shld A/AA/PROM - Try wand ex's. Leesa LE and UE General Strengthening. Gait and Balance Training. Instruction in Proper Posture Control, Body Mechanics, and Appropriate Activity Modifications. HEP Instruction. Balance/Gait/Functional tests Balance/Special Test Scores Oswestry Low Back Score: 31 Quick DASH Score: 63.6350 Goals Goals Goal 1:: DECREASE C/O LOW BACK PAIN BY AT LEAST 50% TO EASE ADL'S. Goal Time Frame: 4-6 Weeks Goal 2:: PATIENT WILL COMPLETE 6 STANDS IN 30 SECS WITH ONE UE ASSIST TO DEMONSTRATE IMPROVED FUNCTIONAL STRENGTH Goal Time Frame: 4-6 Weeks Goal 3:: PATIENT WILL COMPLETE TUG IN < 20 SECS TO DEMONSTRATE IMPROVED GAIT STABILITY Goal Time Frame: 4-6 Weeks Goal 4:: PATIENT WILL BE INDEP WITH A HEP FOR CONTINUED IMPROVEMENT ONCE FORMAL PHYSICAL THERAPY CONCLUDES. Goal Time Frame: 4-6 Weeks Goal 5:: NEW GOAL: DECREASE C/O L SHLD PAIN BY AT LEAST 50% TO EASE ADL'S Goal Time Frame: 4-6 Weeks Goal 6:: NEW GOAL: PATIENT WILL SCORE AT LEAST 5 POINTS BETTER ON QUICK DASH QUESTIONNAIRE. Goal Time Frame: 4-6 Weeks Anticipated Interventions Anticipated Interventions Patient/Client Instruction: Educate patient on: Condition, Plan of Care and Risk Factors For the Purpose of:: To improve self management Therapeutic Exercise to Include: Strength training, Body mechanics, Postural training, Flexibilty training, Gait and locomotor training, Neuromotor development and Dynamic Lumbar Stabilization For the Purpose of:: To decrease pain, To increase ROM, To improve muscle performance and motor function, To increase tolerance to activity/condition/position, To improve ability of physical actions for home/community/work/leisure, To improve gait and locomotor functions and To increase flexibility/ROM Cryotherapy (ice pack, ice massage): Yes Thermo therapy (hot pack): Yes For the Purpose of:: To decrease pain, To decrease swelling/inflammation and To improve nutrient delivery to tissue Re-Evaluation Ending Re-evaluation ending: Please do not hesitate to contact me at [phone] by phone or if you have questions or concerns regarding this new plan of care! Sincerely, Marielle Gomes, PT, Cert MDT
--- NOTE | 2024-04-22 19:54 | HP.PT.NRP ---
Patient Information Patient Information: RICHIE HANSEN was seen in my office for initial evaluation on 01/02/24. The following Plan of Care was established for this patient: POC Established Initial Frequency: 2-3x /Week Initial Duration: 4-6 Weeks Anticipated Interventions Patient/Client Instruction: Educate patient on: Condition, Plan of Care and Risk Factors For the Purpose of:: To improve self management Therapeutic Exercise to Include: Strength training, Body mechanics, Postural training, Flexibilty training, Gait and locomotor training, Neuromotor development and Dynamic Lumbar Stabilization For the Purpose of:: To decrease pain, To increase ROM, To improve muscle performance and motor function, To increase tolerance to activity/condition/position, To improve ability of physical actions for home/community/work/leisure, To improve gait and locomotor functions and To increase flexibility/ROM Cryotherapy (ice pack, ice massage): Yes Thermo therapy (hot pack): Yes For the Purpose of:: To decrease pain, To decrease swelling/inflammation and To improve nutrient delivery to tissue Last Seen Last Seen: This patient was last seen in our office 03/06/24. Pertinent comments regarding their Physical therapy will appear below: It has been my pleasure to see this patient for a total of 15 visits. This patient informed us 03/12/24 that he had a procedure pending for an artery problem with his eye that was causing him dizziness. He has not returned to Physical Therapy for more visits and is appropriate to return to MD for further follow-up as needed. At this point I will be discontinuing this patient from physical therapy. I would be happy to see this patient again in the future if found appropriate by the physician. Thank you! Marielle Gomes, PT, Cert MDT Balance/Gait/Functional tests Balance/Special Test Scores Oswestry Low Back Score: 31 Quick DASH Score: 63.6350
== END 2024-03-06 19:00 | disposition home or self-care (01) ==
LOC: PT 13:00
PROVIDERS: PCP Family Medicine; Referring Provider Family Medicine; Visit Provider Family Medicine
DX: M76.31 Iliotibial band syndrome, right leg (principal); M76.32 Iliotibial band syndrome, left leg
CPT/HCPCS: 97110; 97140; 97162; 97530

== ENCOUNTER 2024-03-16 11:37 | Inpatient (IN) | payer MEDICARE, OTHER, SELFPAY ==
[2024-03-16] VITALS (8 sets, daily range): BP systolic 123–146; BP diastolic 69–107; PULSE 74–90; RESP 15–20; TEMP 36.4–36.8; O2SAT 93–96; BMI 19.9; BMI 19.7
--- NOTE | 2024-03-16 11:47 | EKG12_ITS ---
Test Reason : Blood Pressure : / mmHG Vent. Rate : 095 BPM Atrial Rate : 000 BPM P-R Int : 000 ms QRS Dur : 156 ms QT Int : 512 ms P-R-T Axes : 000 062 259 degrees QTc Int : 643 ms Atrial fibrillation with premature ventricular or aberrantly conducted complexes Right bundle branch block Marked T-wave abnormality, consider inferolateral ischemia Abnormal ECG Confirmed by MARCE KASPER, ADAM ([id number]), dictionary editor MADISON MONTOYA ([id number]) on 03/19/2024 11:14:40 AM Referred By: Confirmed By:ADAM ZHENG MD
[2024-03-16 11:55] LABS: Absolute Lymphocyte Count 0.61 X10^3/uL (0.83-4.51); Absolute Neutrophil Count 7.6 X10^3/uL (2.0-7.7); Basophil# 0.04 X10^3/uL; Basophil% 0.4 % (0-1); Eosinophil# 0.05 X10^3/uL; Eosinophils% 0.6 % (0-5); Hematocrit 40.4 % (40-54); Hemoglobin 14.1 g/dL (13.0-16.5); Lymphocyte # 0.61 X10^3/ul (0.83-4.51); Lymphocyte % 6.9 % (19-41); Mean Corp Hgb Conc 34.9 g/dL (32-36); Mean Corpuscular Hgb 38.5 pg (27.0-32.0); Mean Corpuscular Volume 110.4 fL (80-94); Mean Platelet Vol. 9.9 fl (6.2-12.0); Monocyte# 0.58 X10^3/uL; Monocyte% 6.5 % (0-10); NRBC Flagged by Analyzer 0 % (0-5); Neutrophil # 7.56 X10^3/uL (2.7-7.7); Platelet Count 239 K/mm3 (150-450); RBC Distribution Width CV 15.6 % (11.6-14.6); RBC Distribution Width SD 63.5 fl (35.1-43.9); Red Blood Count 3.66 M/mm3 (4.6-6.2); White Blood Count 8.9 K/mm3 (4.4-11.0)
--- NOTE | 2024-03-16 12:06 | CT_ITS ---
STUDY: CT ABDOMEN AND PELVIS WITHOUT CONTRAST REASON FOR EXAM: Male, 83 years old. Nausea and vomiting RADIATION DOSAGE (If Supplied By Facility): CTDIvol = ( 6.42 ) mGy, DLP = ( 314.52 ) mGycm TECHNIQUE: Transaxial images were obtained from the dome of the diaphragm to the symphysis pubis without oral contrast, and without intravenous contrast. Sagittal and coronal images were reconstructed. Individualized dose optimization techniques were used for this CT. COMPARISON: Comparison is made with prior study dated February 19, 2023. FINDINGS: Increased linear markings at the lung bases suggestive of either scarring and/or atelectasis. Calcified granuloma in the left lower lobe. Cord artery calcification. Cardiomegaly. Prominent left atrium. Normal liver. There is a distended gallbladder. There are multiple benign calcified granulomata of the spleen. Normal pancreas. Normal bilateral adrenal glands. Stable right renal cysts. Stable punctate nonobstructive calculus in the lower pole calyx of the right kidney. Dominant cyst in the upper pole of the left kidney measuring 5.6 cm. Normal visualized stomach. Normal small intestine. There are multiple colonic diverticula consistent with diverticulosis. The appendix is visualized and appears normal. There is scattered atherosclerotic calcification of the abdominal aorta, without a demonstrated aneurysm. Normal inferior vena cava. Normal retroperitoneum. Normal urinary bladder. Findings suggestive of metallic radiation seeds within the prostate. Small bilateral inguinal hernias containing fat. Prior kyphoplasty of the T10, T12 and L1 vertebra. Stable wedge compression of the T11 vertebrae. Dextroscoliosis. CT/Abdomen/Pelvis without Cont IMPRESSION: The gallbladder is distended. Correlation with ultrasound recommended. The remainder of the examination is unchanged. Sigmoid diverticulosis. Electronically Signed: Wilfred Milligan MD at 12:52 EDT ,
[2024-03-16] MEDS: 0.9% Normal Saline (1000mL) 1,000 ML 1000 ML IV (12:15)
[2024-03-16 12:19] LABS: ALB/GLOB Ratio 0.9 RATIO (0.9-2.4); AST(SGOT) 19 U/L (15-37); Alanine Aminotransfer ALT/SGPT 21 U/L (16-61); Albumin, Serum 3.8 g/dL (3.2-5.0); Alkaline Phosphatase 85 U/L (45-117); Anion Gap 9 (5-15); BUN 60 mg/dL (7-18); BUN/Creat Ratio 15.4 RATIO (10-20); Calcium,Total 9.4 mg/dL (8.5-10.1); Chloride 101 mmol/L (98-107); EST Glomerular Filtration Rate 16 mL/min (>60); Est Glom Filt Rate - Afr Amer 19 mL/min (>60); Estimated Creatinine Clearance 12.27 ml/min; Globulin 4.4 g/dL (2.2-4.2); Glucose 114 mg/dL (74-106); Lipase 34 U/L (13-75); Protein, Total 8.2 g/dL (6.4-8.2); Sodium Level 138 mmol/L (136-145); Troponin-I HS 33 pg/mL (3.0-78.0)
[2024-03-16 12:23] LABS: Magnesium 2.4 mg/dL (1.6-2.6)
--- NOTE | 2024-03-16 12:53 | EX.ED.DYSGE1 ---
HPI History of Present Illness Chief Complaint: General Illness Informant: patient Narrative Narrative: Patient presents with nausea, vomiting and weakness. He states this has been going on for the past 2 days. He can't keep anything down including his medications. He is not having dry heaves. He denies any significant abdominal pain. He has a BM yesterday but doesnt think he has passed any gas today. Feels mildly bloated. Denies any blood in vomit or stool. He denies fevers, chest pain, SOB or urinary symptoms. No reported sick contacts. Has a hx of hernia surgery. Lives home alone. Has zofran at home, no relief with this. [facility] Medical History Persistent atrial fibrillation Hearing loss, left Hearing loss, right Anxiety Chronic pain Rheumatoid arthritis COPD (chronic obstructive pulmonary disease) Irregular heart beat Hypertension Hypothyroidism Hiatal hernia Acute constipation Acute exacerbation of chronic low back pain Wears glasses Thyroid disease Ambulates with cane Arthritis History of renal disease Anemia High cholesterol Easy bruising Excessive bleeding History of leukemia Back pain Difficulty chewing History of diverticulitis Gastric reflux Sleep apnea History of pain when walking History of edema History of echocardiogram History of stress test Cardiology follow-up encounter History of heart attack Nausea and vomiting Chronic anemia Diarrhea Colitis Acute kidney injury Sleep apnea Acute kidney injury superimposed on chronic kidney disease On amiodarone therapy Elevated LFTs Thoracic aortic aneurysm (TAA) Chronic heart failure with preserved ejection fraction (HFpEF) Nonrheumatic mitral (valve) insufficiency Atypical atrial flutter (12/2020) Elevated liver enzymes Debility Dysphagia Osteoarthritis History of colon polyps Cancer Kidney stones Kidney disease Non-smoker CPAP (continuous positive airway pressure) dependence Atrial fibrillation Myocardial infarct Chronic renal insufficiency Acute gastrointestinal bleeding Chronic kidney disease Benign prostatic hyperplasia Stage 3b chronic kidney disease GI bleed (2012) Non-rheumatic tricuspid valve insufficiency Secondary pulmonary arterial hypertension Essential (primary) hypertension BPH (benign prostatic hyperplasia) History of hyperthyroidism Paroxysmal atrial fibrillation 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 HLD (hyperlipidemia) Home Medications ?Medication ?Instructions ?Recorded ?Last Taken ?Type tamsulosin 0.4 mg capsule 0.4 mg PO QHS bladder 11/18/21 06/20/23 History vitamin B complex 1 cap PO BID supplement 05/01/22 02/12/23 History ascorbic acid (vitamin C) 500 mg 500 mg PO DAILY supplement 11/22/22 10/24/23 History tablet finasteride 5 mg tablet 5 mg PO DAILY prostate 08/05/22 06/21/23 History cholecalciferol (vitamin D3) 25 1,000 unit PO DAILY supplement 02/19/23 Unknown History mcg (1,000 unit) capsule (Vitamin D3) loratadine 10 mg tablet (Claritin) 10 mg PO DAILY allergies 06/16/23 Unknown History warfarin 3 mg tablet (Jantoven) 3 mg PO SuTuThSa@1700 blood 06/21/23 06/19/23 Rx thinner #0 tabs warfarin 4 mg tablet See Rx Instructions .Route 06/21/23 06/20/23 Rx .COMPLEX blood thinner #60 tabs empagliflozin 10 mg tablet 10 mg PO DAILY Diabetes #0 tabs 07/22/23 Unknown Rx (Jardiance) hydralazine 50 mg tablet 50 mg PO 4X/DAY BP #0 tabs 07/22/23 Unknown Rx nitroglycerin 0.4 mg sublingual 0.4 mg sublingual Q5M PRN 07/22/23 Unknown Rx tablet Cardiac/Chest Pain #0 tabs albuterol sulfate 2.5 mg/3 mL 2.5 mg (3 mL) inhalation Q6HWA.RT 08/04/23 Unknown Rx (0.083 %) solution for nebulization #0 mL lactulose 20 gram/30 mL oral 10 g (15 mL) PO DAILY #0 mL 08/04/23 Unknown Rx solution levothyroxine 50 mcg tablet 50 mcg PO 0600 #0 tabs 08/04/23 Unknown Rx melatonin 3 mg tablet 3 mg PO QHS PRN PRN Insomnia #0 08/04/23 Unknown Rx tabs sodium chloride 0.65 % nasal spray 2 spray NASAL TID PRN PRN NASAL 08/04/23 Unknown Rx aerosol (Deep Sea Nasal) DRYNESS #0 mL ranolazine 500 mg tablet,extended 500 mg PO BID #60 tabs 02/03/24 Unknown Rx release,12 hr acetaminophen 500 mg tablet 1,000 mg PO Q8H PRN PRN PAIN 1-10 02/28/24 Unknown History baclofen 10 mg tablet mg PO 02/28/24 Unknown History calcium carbonate (Tums) 400 mg PO Q6H 02/28/24 Unknown History clonidine HCl 0.1 mg tablet 0.1 mg PO QDAY 02/28/24 Unknown History diltiazem HCl 120 mg capsule,24 120 mg PO DAILY 02/28/24 Unknown History hr,extended release famotidine 20 mg tablet 20 mg PO BID 02/28/24 Unknown History hydromorphone 2 mg tablet 1 mg PO Q6 PRN 02/28/24 Unknown History isosorbide mononitrate 30 mg 30 mg PO QDAY 02/28/24 Unknown History tablet,extended release 24 hr lorazepam 0.5 mg tablet 0.5 mg PO QDAY 02/28/24 Unknown History magnesium chloride 64 mg 64 mg PO BID 02/28/24 Unknown History (magnesium chloride) tablet,delayed release (Mag 64) meclizine 12.5 mg tablet 12.5 mg PO TID PRN 02/28/24 Unknown History metoprolol tartrate 25 mg tablet 12.5 mg PO BID BP 02/28/24 Unknown History ondansetron HCl 4 mg tablet 4 mg PO Q4H PRN 02/28/24 Unknown History pantoprazole 40 mg tablet,delayed 40 mg PO BID 02/28/24 Unknown History release potassium chloride 20 mEq 20 meq PO TID 02/28/24 Unknown History tablet,extended release(part/cryst) sucralfate 1 gram tablet 1 g PO QACHS stomach 02/28/24 Unknown History trazodone 50 mg tablet 25 mg PO QHS PRN 02/28/24 Unknown History amiodarone 100 mg tablet 100 mg PO BID heart #180 tabs 02/29/24 Unknown Rx furosemide 40 mg tablet 40 mg PO BID #60 tabs 02/29/24 Unknown Rx Allergy/AdvReac Type Severity Reaction Status Date / Time diclofenac Allergy rash Verified 03/16/24 11:43 prednisone Allergy Rash Verified 03/16/24 11:43 Family History Father Cancer Prostate cancer Mother Hypertension Sister Hypertension Surgical History History of back surgery History of cardiac catheterization History of esophagogastroduodenoscopy (EGD) History of cardioversion (06/18/19) History of radiofrequency ablation procedure for cardiac arrhythmia (11/11/11) History of electrophysiologic study (08/08/00) History of left heart catheterization (07/17/12) History of hemorrhoidectomy History of Zenaida fundoplication History of coronary artery stent placement (08/04/00) History of hernia repair History of back surgery Social History household members: none Smoking Status: Never smoker alcohol intake: never substance use type: does not use caffeine: No ROS ROS ED Constitutional Constitutional ED: Reports other Details: lightheaded, generalized weakness ; Denies chills Eyes Eyes: Denies change in vision ENT ENT ED: Denies sore throat Cardiovascular Cardiovascular: Denies chest pain Respiratory/Chest Respiratory/Chest: Denies cough or dyspnea Gastrointestinal Gastrointestinal: Reports constipation, nausea and vomiting; Denies abdominal pain, diarrhea or melena Genitourinary Genitourinary ED: Denies dysuria or urinary frequency Musculoskeletal Musculoskeletal: Denies back pain or myalgias Neurologic Neurologic: Reports weakness; Denies headache(s) Hematologic/Lymphatic Hematologic/Lymphatic: Reports easy bleeding, easy bruising and other Details: on coumadin EXAM Physical Exam Const Vital Signs: 03/16/24 11:39 03/16/24 11:41 03/16/24 11:43 Temperature 97.6 F L 97.6 F L Temperature Source Oral Oral Pulse Rate 89 88 Respiratory Rate 15 18 Respiratory Effort Short of Breath Respiratory Pattern Tachypnea Blood Pressure 127/95 H 127/95 H Blood Pressure Mean 105 105 Pulse Ox 94 93 Oxygen Delivery Method Room Air Room Air 03/16/24 14:28 Temperature Temperature Source Pulse Rate 90 Respiratory Rate 15 Respiratory Effort Respiratory Pattern Blood Pressure 123/69 H Blood Pressure Mean 87 Pulse Ox 95 Oxygen Delivery Method Room Air Positive well nourished and well developed General Appearance ED: well developed and NAD HEENT Reports dry mucous membranes Mouth ED: Yes dry mucous membranes Mouth: dry mucous membranes Eyes PERRL and EOMs intact bilaterally General Eye ED: Negative for scleral icterus Neck supple and no JVD Chest Wall inspection of chest normal and palpation of chest normal Resp normal respiratory effort and clear to auscultation bilaterally Cardio regular rate and no murmurs Rhythm: abnormal rhythm GI normal to inspection, nondistended, normoactive bowel sounds, non-tender and non-distended Auscultation: normoactive bowel sounds Extremity normal to inspection General Extremety ED: Negative for edema General Extremity: Negative for edema Neuro oriented x3 Sensorium / Orientation: alert Motor Exam: general weakness Psych mental status grossly normal Skin no rashes or lesions noted and no wounds MDM MDM MDM Narrative Medical decision making narrative: Patient presents to the emergency room with nausea and vomiting. He really is not having much abdominal pain. Denies diarrhea. Has multiple medical comorbidities and has not been able to take his medication?s. Patient is given fluids and Zofran with improvement of his symptoms. CBC Largely unremarkable. CMP shows an elevation of his creatinine to 3.90 ( baseline 2.8.). no signs of urinary tract infection on urinalysis. CT of the abdominal pelvis is obtained given his G.I. symptoms and he does have a descendent gallbladder. Recommend ultrasound gallbladder ultrasound shows the distended gallbladder and gallbladder. Recommend hida scan. Patient not have any tenderness, transaminitis, elevation of his Bilirubin , or leukocytosis. Will be admitted to medicine service for further hydration as well as workup of a potential gallbladder pathology. He?s agreeable with his plan of care. Case discussed with Dr. Stone for admission. Will defer antibiotics/surgical consult at this time given lower suspicion of acute cholecystis with no pain, leukocytosis and normal liver labs. History & Record Review Additional record(s) reviewed:: Prior labs Lab Data Attestation: I reviewed the patient's lab results. Labs: Laboratory Results - last 24 hr 03/16/24 03/16/24 11:45 14:00 WBC 8.9 RBC 3.66 L Hgb 14.1 Hct 40.4 MCV 110.4 H MCH 38.5 H MCHC 34.9 RDW Std Deviation 63.5 H RDW Coeff of [place] 15.6 H Plt Count 239 MPV 9.9 Immature Gran % (Auto) 0.600 Neut % (Auto) 85.0 H Lymph % (Auto) 6.9 L [place] % (Auto) 6.5 Eos % (Auto) 0.6 Baso % (Auto) 0.4 Absolute Neuts (auto) 7.6 Absolute Lymphs (auto) 0.61 L Nucleated RBC % 0 Sodium 138 Potassium 4.0 Chloride 101 Carbon Dioxide 28.0 Anion Gap 9 BUN 60 H Creatinine 3.90 H Estim Creat Clear Calc 12.27 Est GFR (MDRD) Af Amer 19 L Est GFR (MDRD) Non-Af 16 L BUN/Creatinine Ratio 15.4 Glucose 114 H Calcium 9.4 Magnesium 2.4 Total Bilirubin 1.00 AST 19 ALT 21 Alkaline Phosphatase 85 Troponin I High Sens 33 Total Protein 8.2 Albumin 3.8 Globulin 4.4 H Albumin/Globulin Ratio 0.9 Lipase 34 Urine Color Straw Urine Clarity Clear Urine pH 6.0 Ur Specific [place] 1.015 Urine Protein Negative Urine Glucose (UA) 100 H Urine Ketones Negative Urine Occult Blood Negative Urine Nitrite Negative Urine Bilirubin Negative Urine Urobilinogen Normal Ur Leukocyte Esterase Negative Urine RBC 0 SEEN Urine WBC 0 SEEN Ur Squamous Epith Cells 0-5 SEEN Urine Bacteria 0 SEEN Urine Mucus 0 SEEN Radiography Diagnostic Testing: Clinical Impression(s) from Imaging Studies Abdomen/Pelvis CT 03/16/24 12:06 IMPRESSION: The gallbladder is distended. Correlation with ultrasound recommended. The remainder of the examination is unchanged. Sigmoid diverticulosis. Electronically Signed: Wilfred Milligan MD at 12:52 EDT , Gallbladder Ultrasound 03/16/24 13:02 IMPRESSION: Distended gallbladder and thickened gallbladder wall. Fatty infiltration of the liver. Correlation with a hepatobiliary scan recommended if clinically indicated. Multiple right renal cysts. Electronically Signed: Wilfred Milligan MD at 14:27 EDT , Rhythm Strip Rhythm Strip: A-fib Rate: 95 Ectopy: PVC(s) EKG Initial EKG: Attestation: I personally reviewed and interpreted this EKG as follows: Interpretation: Atrial Fibrillation Comments: A fib at rate of 95 bpm PVCs RBBB Prolonged QTc Nonspecific ST segment changes Prior EKG tracings: available for review Prior: Changed (frequent PVCs ) Management Discussion w/another healthcare provider: Hospitalist Discharge Plan Triage Chief Complaint: General Illness ED Provider: Yoon Duarte Dx/Rx/DC Orders Clinical Impression: Acute kidney injury superimposed on CKD, Nausea & vomiting, Abnormal findings on diagnostic imaging of gallbladder Prescriptions: No Action tamsulosin 0.4 mg capsule 0.4 mg PO QHS ascorbic acid (vitamin C) 500 mg tablet 500 mg PO DAILY finasteride 5 mg tablet 5 mg PO DAILY clonidine HCl 0.1 mg tablet 0.1 mg PO QDAY meclizine 12.5 mg tablet 12.5 mg PO TID PRN baclofen 10 mg tablet PO trazodone 50 mg tablet 25 mg PO QHS PRN metoprolol tartrate 25 mg tablet 12.5 mg PO BID calcium carbonate [Tums] 200 mg calcium (500 mg) tablet,chewable 400 mg PO Q6H magnesium chloride [Mag 64] 64 mg tablet,delayed release (DR/EC) 64 mg PO BID ondansetron HCl 4 mg tablet 4 mg PO Q4H PRN hydromorphone 2 mg tablet 1 mg PO Q6 PRN famotidine 20 mg tablet 20 mg PO BID pantoprazole 40 mg tablet,delayed release (DR/EC) 40 mg PO BID sucralfate 1 gram tablet 1 g PO QACHS isosorbide mononitrate 30 mg tablet extended release 24 hr 30 mg PO QDAY lorazepam 0.5 mg tablet 0.5 mg PO QDAY acetaminophen 500 mg tablet 1,000 mg PO Q8H PRN PRN (Reason: PAIN 1-10) diltiazem HCl 120 mg capsule,extended release 24 hr 120 mg PO DAILY potassium chloride 20 mEq tablet,ER particles/crystals 20 meq PO TID vitamin B complex Capsule 1 cap PO BID cholecalciferol (vitamin D3) [Vitamin D3] 25 mcg (1,000 unit) Capsule 1,000 unit PO DAILY nitroglycerin 0.4 mg Tablet, Sublingual 0.4 mg sublingual Q5M PRN (Reason: Cardiac/Chest Pain) Qty: 0 0RF hydralazine 50 mg Tablet 50 mg PO 4X/DAY Qty: 0 0RF Jardiance 10 mg Tablet 10 mg PO DAILY Qty: 0 0RF loratadine [Claritin] 10 mg tablet 10 mg PO DAILY warfarin [Jantoven] 3 mg Tablet 3 mg PO SuTuThSa@1700 Qty: 0 0RF warfarin 4 mg tablet See Rx Instructions .Route .COMPLEX Qty: 60 0RF Protocol: Dose Management Condition: Tuesday Dose/Route: 4 mg Instruction: 1 x 4 mg tablet Condition: Tuesday Dose/Route: 4 mg Instruction: 1 x 4 mg tablet Condition: Tuesday Dose/Route: 4 mg Instruction: 1 x 4 mg tablet Condition: Tuesday Dose/Route: 4 mg Instruction: 1 x 4 mg tablet Condition: Dose/Route: 2 mg Instruction: 1 x 2 mg tablet Condition: Tuesday Dose/Route: 2 mg Instruction: 1 x 2 mg tablet Condition: Tuesday Dose/Route: 2 mg Instruction: 1 x 2 mg tablet Protocol Text: Adjustment Start Date: Tuesday06/17/23 INR Value: 1.7 INR Date: 06/17/23 Recheck Date: 06/24/23 Rx Instructions: 4mg Tue, Tue, Tue. 3mg Tue, , , Sat orally; albuterol sulfate 2.5 mg /3 mL (0.083 %) Solution For Nebulization 2.5 mg inhalation Q6HWA.RT Qty: 0 0RF melatonin 3 mg Tablet 3 mg PO QHS PRN PRN (Reason: Insomnia) Qty: 0 0RF levothyroxine 50 mcg Tablet 50 mcg PO 0600 Qty: 0 0RF Deep Sea Nasal 0.65 % Aerosol,[place] 2 spray NASAL TID PRN PRN (Reason: NASAL DRYNESS) Qty: 0 0RF lactulose 20 gram/30 mL Solution 10 g PO DAILY Qty: 0 0RF ranolazine 500 mg tablet extended release 12 hr 500 mg PO BID Qty: 60 11RF furosemide 40 mg tablet 40 mg PO BID Qty: 60 11RF amiodarone 100 mg tablet 100 mg PO BID Qty: 180 3RF Primary Care Provider: César Chinchilla Referrals: César Chinchilla MD [Primary Care Provider] - Print Language: Serbian Disposition Disposition: Acute Care Hospital [facility]
--- NOTE | 2024-03-16 13:02 | US_ITS ---
STUDY: ABDOMINAL ULTRASOUND - RIGHT UPPER QUADRANT REASON FOR VISIT: Male, 83 years old distended us on CT, n/vomiting TECHNIQUE: Ultrasound evaluation of the right upper quadrant was performed with real-time and static valdes-scale imaging. TECHNICAL QUALITY: Adequate. COMPARISON: Comparison is made with prior CT scan of the abdomen done earlier today as well as prior sonogram dated June 16, 2023. FINDINGS: Liver: The liver measures 15.7 cm. There is increased echogenicity consistent with fatty infiltration. The bile ducts are within normal limits. There is hepatic color flow. The direction of portal flow is hepatopetal. There is no demonstrated mass lesion. Gallbladder: The gallbladder is distended. The gallbladder wall is thickened and measures 5.1 mm. There is a negative sonographic Hernández''s sign. There is no pericholecystic fluid. There are no gallstones. Common Bile Duct (C.B.D.): The common bile duct measures 2.4 mm. Pancreas: Normal size of the head, body and tail of the pancreas. There is normal echogenicity of the pancreas. There is no demonstrated pancreatic mass or cyst. Right Kidney: Normal size of the right kidney. The right kidney measures 10.6 cm x 6.4 cm x 5.8 cm. Normal renal cortex. The right cortex measures 1.2 cm. Renal cysts are seen. The largest measures 4 cm x 3.4 cm x 3.3 cm. There is no right hydronephrosis. US/Gallbladder IMPRESSION: Distended gallbladder and thickened gallbladder wall. Fatty infiltration of the liver. Correlation with a hepatobiliary scan recommended if clinically indicated. Multiple right renal cysts. Electronically Signed: Wilfred Milligan MD at 14:27 EDT ,
[2024-03-16 14:10] LABS: Bacteria 0 SEEN /hpf (None Seen); Mucous, Urine 0 SEEN /hpf (<or=2+); Red Blood Cells-Urine 0 SEEN /hpf (0-5); White Blood Cells 0 SEEN /hpf (0-5)
[2024-03-16 14:20] LABS: Color, Urine Straw (Yellow); Glucose, Dipstick 100 mg/dl (Normal); Ketone-Dipstick Negative (Negative); Leukocyte Esterase-Dipstick Negative /ul (Negative); Nitrite-Dipstick Negative (Negative); Occult Blood-Urine Negative /ul (Negative); Protein-Dipstick Negative (Negative); Specific Gravity, Urine 1.015 (1.002-1.030); Urine Bilirubin Dipstick Negative (Negative); Urine Clarity Clear (Clear); Urine Urobilinogen Normal (Normal)
[2024-03-16] MEDS: 0.9% Normal Saline (1000mL) 1,000 ML 150 ML IV (14:28)
[2024-03-16 14:31] LABS: Squamous Epithelial Cells - UA 0-5 SEEN /hpf (0-5)
--- NOTE | 2024-03-16 15:40 | NM_ITS ---
INDICATION: Right upper quadrant pain, nausea and vomiting EXAMINATION: NUCLEAR MEDICINE HEPATOBILIARY SCAN - NM Hepatobiliary Imaging Quantitive TECHNIQUE: 5.4 mCi technetium 99m choletec was intravenously administered and static images were obtained. COMPARISON: Prior study dated: yesterday, ultrasound and CT FINDINGS: There is homogeneous uptake and excretion of the radiopharmaceutical by the liver. There is no abnormal hyperemia along the gallbladder fossa. Biliary activity is noted at 10 minutes. Bowel activity is noted at 15 minutes. Gallbladder activity is noted at 45 minutes. After gallbladder activity was identified, patient was injected with 1.2 mcg of CCK. Gallbladder ejection fraction measures 90% which is within normal range NM/Hepatobilliary Img w/Pharm Int IMPRESSION: Negative hepatobiliary scan. Electronically Signed: Joe Jennings MD at 10:36 EDT ,
--- NOTE | 2024-03-16 15:44 | PCM.HP.STD ---
HPI - General General Date of Admission: 03/16/24 Date of Service: 03/16/24 Chief Complaint: Intractable Nausea and Vomiting HPI Narrative RICHIE HANSEN, is a 83 M who presented to the emergency department at [facility] on 03/16/2024 due to nausea and vomiting that has been persistent for about 2 days now. He stated on presentation he was not really able to get his meds and or significant mount of fluid and was feeling dehydrated. He is now having dry heaves. He denies any significant abdominal pain and reported his last bowel movement was the day prior to presentation. He has chronic constipation and denies any associated diarrhea with his sickness. He has no known sick contacts. He also complains of concomitant weakness. He denies any other significant symptoms. He has as needed Zofran at home which she has been using with no relief. Vital signs on presentation showed a temperature of 97.6, heart rate 89, respiratory was 15, blood pressure was 127/95 and pulse ox was 94% on room air. CBC was overtly unremarkable and unchanged when compared to previous. INR was 1.3. Chemistry panel showed normal electrolytes however his BUN and creatinine are markedly elevated compared to his baseline (baseline is between 2.8 and 3.0) with current serum creatinine at 3.90. Blood glucose was mildly elevated 114. Lipase was 34. CT of the abdomen pelvis showed distended gallbladder and an ultrasound was recommended as well as sigmoid diverticulosis with no other acute findings. Gallbladder ultrasound showed distended gallbladder with a thickened wall and fatty infiltration of the liver and HIDA scan was recommended. He also was found to have several right renal cysts. IV fluids and antiemetics were given prior to admission. [facility]LY [facility] Medical History Persistent atrial fibrillation Hearing loss, left Hearing loss, right Anxiety Chronic pain Rheumatoid arthritis COPD (chronic obstructive pulmonary disease) Irregular heart beat Hypertension Hypothyroidism Hiatal hernia Acute constipation Acute exacerbation of chronic low back pain Wears glasses Thyroid disease Ambulates with cane Arthritis History of renal disease Anemia High cholesterol Easy bruising Excessive bleeding History of leukemia Back pain Difficulty chewing History of diverticulitis Gastric reflux Sleep apnea History of pain when walking History of edema History of echocardiogram History of stress test Cardiology follow-up encounter History of heart attack Nausea and vomiting Chronic anemia Diarrhea Colitis Acute kidney injury Sleep apnea Acute kidney injury superimposed on chronic kidney disease On amiodarone therapy Elevated LFTs Thoracic aortic aneurysm (TAA) Chronic heart failure with preserved ejection fraction (HFpEF) Nonrheumatic mitral (valve) insufficiency Atypical atrial flutter (12/2020) Elevated liver enzymes Debility Dysphagia Osteoarthritis History of colon polyps Cancer Kidney stones Kidney disease Non-smoker CPAP (continuous positive airway pressure) dependence Atrial fibrillation Myocardial infarct Chronic renal insufficiency Acute gastrointestinal bleeding Chronic kidney disease Benign prostatic hyperplasia Stage 3b chronic kidney disease GI bleed (2012) Non-rheumatic tricuspid valve insufficiency Secondary pulmonary arterial hypertension Essential (primary) hypertension BPH (benign prostatic hyperplasia) History of hyperthyroidism Paroxysmal atrial fibrillation 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 HLD (hyperlipidemia) Home Medications ?Medication ?Instructions ?Recorded ?Last Taken ?Type tamsulosin 0.4 mg capsule 0.4 mg PO BID bladder 11/18/21 06/20/23 History vitamin B complex 1 cap PO BID supplement 05/01/22 03/15/24 History ascorbic acid (vitamin C) 500 mg 500 mg PO DAILY supplement 07/20/22 03/15/24 History tablet finasteride 5 mg tablet 5 mg PO DAILY prostate 08/05/22 03/15/24 History cholecalciferol (vitamin D3) 25 1,000 unit PO DAILY supplement 02/19/23 03/15/24 History mcg (1,000 unit) capsule (Vitamin D3) loratadine 10 mg tablet (Claritin) 10 mg PO DAILY allergies 06/16/23 03/15/24 History empagliflozin 10 mg tablet 10 mg PO DAILY Diabetes #0 tabs 07/22/23 03/15/24 Rx (Jardiance) nitroglycerin 0.4 mg sublingual 0.4 mg sublingual Q5M PRN 07/22/23 Unknown Rx tablet Cardiac/Chest Pain #0 tabs albuterol sulfate 2.5 mg/3 mL 2.5 mg (3 mL) inhalation Q6HWA.RT 08/04/23 03/15/24 Rx (0.083 %) solution for nebulization #0 mL lactulose 20 gram/30 mL oral 10 g (15 mL) PO DAILY #0 mL 08/04/23 03/15/24 Rx solution levothyroxine 50 mcg tablet 50 mcg PO 0600 #0 tabs 08/04/23 03/15/24 Rx ranolazine 500 mg tablet,extended 500 mg PO BID #60 tabs 02/03/24 03/15/24 Rx release,12 hr acetaminophen 500 mg tablet 1,000 mg PO Q8H PRN PAIN 1-10 02/28/24 03/15/24 History baclofen 10 mg tablet 5 - 10 mg PO TID PRN HICCOUGHS OR 02/28/24 03/15/24 History MUSCLE PAIN clonidine HCl 0.1 mg tablet 0.05 - 0.1 mg PO QDAY PRN 02/28/24 03/15/24 History hypertension diltiazem HCl 120 mg capsule,24 120 mg PO DAILY 02/28/24 03/15/24 History hr,extended release famotidine 20 mg tablet 20 mg PO BID 02/28/24 03/15/24 History isosorbide mononitrate 30 mg 30 mg PO QDAY 02/28/24 03/15/24 History tablet,extended release 24 hr lorazepam 0.5 mg tablet 0.5 mg PO QDAY 02/28/24 03/15/24 History magnesium chloride 64 mg 64 mg PO BID 02/28/24 03/15/24 History (magnesium chloride) tablet,delayed release (Mag 64) meclizine 12.5 mg tablet 12.5 mg PO TID PRN dizziness 02/28/24 03/15/24 History metoprolol tartrate 25 mg tablet 12.5 mg PO BID BP 02/28/24 03/15/24 History ondansetron HCl 4 mg tablet 4 mg PO Q4H PRN nausea and vomiting 02/28/24 Unknown History pantoprazole 40 mg tablet,delayed 40 mg PO BID 02/28/24 03/15/24 History release potassium chloride 20 mEq 20 meq PO TID 02/28/24 03/15/24 History tablet,extended release(part/cryst) trazodone 50 mg tablet 25 mg PO QHS PRN insomnia 02/28/24 03/15/24 History amiodarone 100 mg tablet 100 mg PO BID heart #180 tabs 02/29/24 03/15/24 Rx furosemide 40 mg tablet 40 mg PO BID #60 tabs 02/29/24 03/15/24 Rx Lactobacillus rhamnosus GG 10 1 cap PO DAILY 03/16/24 03/15/24 History billion cell capsule (Culturelle) hydralazine 50 mg tablet 50 mg PO 4X/DAY PRN BP 03/16/24 03/15/24 History lidocaine 4 % topical patch 1 patch topical Q12H 03/16/24 03/15/24 History melatonin 3 mg tablet 3 mg PO QHS PRN Insomnia 03/16/24 Unknown History Allergy/AdvReac Type Severity Reaction Status Date / Time diclofenac Allergy rash Verified 03/16/24 11:43 prednisone Allergy Rash Verified 03/16/24 11:43 Family History Father Cancer Prostate cancer Mother Hypertension Sister Hypertension Surgical History History of back surgery History of cardiac catheterization History of esophagogastroduodenoscopy (EGD) History of cardioversion (06/18/19) History of radiofrequency ablation procedure for cardiac arrhythmia (11/11/11) History of electrophysiologic study (08/08/00) History of left heart catheterization (07/17/12) History of hemorrhoidectomy History of Zenaida fundoplication History of coronary artery stent placement (08/04/00) History of hernia repair History of back surgery Social History household members: none Smoking Status: Never smoker alcohol intake: never substance use type: does not use caffeine: No ROS Constitutional Constitutional: Reports anorexia, fatigue, malaise and weakness; Denies change in weight, chills, fever(s), night sweats or other Eyes Eyes: Denies blurry vision, change in eye color, change in vision, discharge from eye(s), double vision, erythema, eye pain, loss of vision or other ENT HEENT: Reports abnormal hearing and hearing loss; Denies dysphagia, ear pain, epistaxis, headache(s), nasal discharge, post nasal drip, sinus pressure, sore throat or other Cardiovascular Cardiovascular: Denies chest pain, claudication, dyspnea on exertion, edema, lightheadedness, orthopnea, palpitations, paroxysmal nocturnal dyspnea, rapid heart rate, syncope or other Respiratory/Chest Respiratory/Chest: Denies cough, dyspnea, excessive phlegm production, hemoptysis, productive cough, shortness of breath at rest, shortness of breath with exertion, wheezing or other Gastrointestinal Gastrointestinal: Reports constipation, nausea and vomiting; Denies abdominal pain, coffee ground emesis, diarrhea, dyspepsia, hematemesis, hematochezia, loose stools, melena or other Genitourinary Genitourinary: Denies burning urination, difficulty urinating, dysuria, hematuria, nocturia, urinary frequency, urinary hesitancy, urinary incontinence, urinary urgency or other Musculoskeletal Musculoskeletal: Reports back pain, joint pain and joint stiffness; Denies arthralgias, joint swelling, myalgias, neck pain or other Neurologic Neurologic: Denies abnormal gait, abnormal speech, confusion, disequilibrium, dizziness, focal weakness, headache(s), numbness, paresthesias, seizure-like activity, seizures, syncope, tingling, tremor(s) or other Psychiatric Psychiatric: Denies anxiety, depression, homicidal ideation, suicidal ideation or other Endocrine Endocrinology: Denies change in body appearance, cold intolerance, excessive sweating, heat intolerance, polydipsia, polyuria or other Hematologic/Lymphatic Hematologic/Lymphatic: Denies anemia, easy bleeding, easy bruising, lymphadenopathy or other Allergic/Immunologic Allergic/Immunologic: Denies rhinitis, hives, eczemia, asthma or other Vital Signs Vital Signs Vital Signs: 03/16/24 11:39 03/16/24 11:41 03/16/24 11:43 Temperature 97.6 F L 97.6 F L Temperature Source Oral Oral Pulse Rate 89 88 Respiratory Rate 15 18 Respiratory Effort Short of Breath Respiratory Pattern Tachypnea Blood Pressure 127/95 H 127/95 H Blood Pressure Mean 105 105 Pulse Ox 94 93 Oxygen Delivery Method Room Air Room Air 03/16/24 14:28 03/16/24 15:42 Temperature 98.2 F Temperature Source Pulse Rate 90 90 Respiratory Rate 15 15 Respiratory Effort Respiratory Pattern Blood Pressure 123/69 H 146/88 H Blood Pressure Mean 87 107 Pulse Ox 95 94 Oxygen Delivery Method Room Air Weight Weight: 59.4 kg Body Mass Index (BMI) 19.9 Physical Exam Const alert, oriented x3 and no apparent distress; Negative for average body habitus, healthy appearing or well nourished Constitutional Narrative: Thin, elderly, white male, sitting up in bed, appears chronically ill but nontoxic, was not in appears comfortable at this time General Appearance: cooperative HEENT normocephalic and head/scalp atraumatic; Negative for hearing grossly normal bilaterally HEENT Narrative: Mild to moderate hearing loss, mucous membranes are dry, Mallampati is 2, no thrush Eyes PERRL, EOMs intact bilaterally and conjunctivae normal Eyes Narrative: No scleral icterus Neck no lymphadenopathy, supple and no JVD Neck Narrative: Trachea midline, no thyroid enlargement Resp normal respiratory effort, no retractions, no use of accessory muscles and clear to auscultation bilaterally Resp Narrative: Diffusely diminished but clear Auscultation: Negative for rales, rhonchi or wheezes Cardio regular rate, S1 normal heart sound, S2 normal heart sound, no murmurs, no rub, no gallops and no clicks; Negative for regular rhythm Cardio Narrative: Rhythm is irregular irregular with controlled rate GI normal to inspection, nondistended, normoactive bowel sounds, soft to palpation and non-tender Extremity no clubbing, cyanosis or edema Extremity Narrative: Pedal pulses are 2+ Neuro oriented x3, moves all extremities and no focal motor deficits Neuro Narrative: Generalized weakness with no focal deficits was identified Speech: speech normal Psych affect normal Psych Narrative: Eye contact is good and patient is very pleasant, interacts appropriately Results Lab / Micro Data 03/16/24 11:45 03/16/24 11:45 Labs: Laboratory Results - last 24 hr 03/16/24 11:45: WBC 8.9, RBC 3.66 L, Hgb 14.1, Hct 40.4, MCV 110.4 H, MCH 38.5 H, MCHC 34.9, RDW Std Deviation 63.5 H, RDW Coeff of Pablo 15.6 H, Plt Count 239, MPV 9.9, Immature Gran % (Auto) 0.600, Neut % (Auto) 85.0 H, Lymph % (Auto) 6.9 L, [place] % (Auto) 6.5, Eos % (Auto) 0.6, Baso % (Auto) 0.4, Absolute Neuts (auto) 7.6, Absolute Lymphs (auto) 0.61 L, Nucleated RBC % 0, Sodium 138, Potassium 4.0, Chloride 101, Carbon Dioxide 28.0, Anion Gap 9, BUN 60 H, Creatinine 3.90 H, Estim Creat Clear Calc 12.27, Est GFR (MDRD) Af Amer 19 L, Est GFR (MDRD) Non-Af 16 L, BUN/Creatinine Ratio 15.4, Glucose 114 H, Calcium 9.4, Magnesium 2.4, Total Bilirubin 1.00, AST 19, ALT 21, Alkaline Phosphatase 85, Troponin I High Sens 33, Total Protein 8.2, Albumin 3.8, Globulin 4.4 H, Albumin/Globulin Ratio 0.9, Lipase 34 03/16/24 14:00: Urine Color Straw, Urine Clarity Clear, Urine pH 6.0, Ur Specific [place] 1.015, Urine Protein Negative, Urine Glucose (UA) 100 H, Urine Ketones Negative, Urine Occult Blood Negative, Urine Nitrite Negative, Urine Bilirubin Negative, Urine Urobilinogen Normal, Ur Leukocyte Esterase Negative, Urine RBC 0 SEEN, Urine WBC 0 SEEN, Ur Squamous Epith Cells 0-5 SEEN, Urine Bacteria 0 SEEN, Urine Mucus 0 SEEN Micro: Microbiology 03/16/24 12:15 Mucosa - Nose SARS-CoV-2, Influenza & RSV (PCR) - Final Rhythm Strip Rhythm Strip: A-fib Rate: 95 Ectopy: PVC(s) Imaging Radiology Impression Abdomen/Pelvis CT 03/16/24 12:06 IMPRESSION: The gallbladder is distended. Correlation with ultrasound recommended. The remainder of the examination is unchanged. Sigmoid diverticulosis. Electronically Signed: Wilfred Milligan MD at 12:52 EDT , Gallbladder Ultrasound 03/16/24 13:02 IMPRESSION: Distended gallbladder and thickened gallbladder wall. Fatty infiltration of the liver. Correlation with a hepatobiliary scan recommended if clinically indicated. Multiple right renal cysts. Electronically Signed: Wilfred Milligan MD at 14:27 EDT , Assessment & Plan Assessment/Plan (1) Intractable nausea and vomiting: (2) Abnormal abdominal ultrasound: (3) Acute kidney injury superimposed on stage 4 chronic kidney disease: PLAN: Plan Intractable nausea and vomiting -Patient with no sick contacts and denies any diarrhea or loose stools -Etiology is currently unclear -Abnormal gallbladder ultrasound -Check HIDA scan as etiology for nausea vomiting is unclear -Clear liquid diet for now -As needed antiemetics -LR at 100 cc/h x 1 bag due to history of heart failure -Reevaluate for further need tomorrow -May need general surgery evaluation depending on HIDA scan results FE on CKD stage IIIb -Appears secondary to dehydration -Hold home Lasix for now -Baseline serum creatinine is 2.8-3.0 -Serum creatinine currently 3.90 -Patient was given IV fluids emergency department and will give 1 more liter of LR and reevaluate after that this patient has significant heart failure with reduced ejection fraction pulmonary hypertension -Repeat BMP in a.m. -No need for renal replacement therapy -If renal function does not improve with IV fluids may need to consider nephrology consultation Debility/generalized weakness secondary to acute illness on chronic comorbidities -Consult PT/OT History of thoracic aortic aneurysm -Being followed by cardiology -Continue medical therapy CAD/chronic HFrEF -PCI with BMS to proximal LAD 07/2000 -Continue goal-directed therapy except hold hydralazine for now and restart tomorrow if blood pressure stable on all other medications -Continue Ranexa -Hold Lasix -Last echocardiogram done 07/19/2023 that showed an EF of 35% with moderate concentric LVH and moderate severe global LV dysfunction, biatrial enlargement and a right ventricular systolic pressure of 77 mmHg -No aspirin secondary to previous GI bleed and chronic anemia -Patient no longer on statin per cardiology documentation PAF -Currently normal sinus rhythm -Continue amiodarone -Continue metoprolol -Continue Cardizem -Had been on coumadin previously but discontinued due to bleeding risk and history of GI bleeding Hyperlipidemia -Patient utilizing lifestyle modifications and not on chronic statin therapy Hypothyroidism -Continue home levothyroxine GERD with history of GI bleed -We will switch to twice daily IV Protonix for now until p.o. intake improves BPH with obstruction -Continue Flomax Chronic anemia -Counts appear stable -Patient with history of GI bleed -Continue to monitor Hypertension -Continue home diltiazem, clonidine, isosorbide mononitrate, and metoprolol -Hold scheduled hydralazine for now until we can monitor his blood pressure more closely as patient does appear dehydrated -May be able to consider restarting in a.m. -As needed hydralazine available for systolic blood pressure greater than 160 History of constipation -Continue home lactulose -As needed senna DVT prophylaxis -Heparin BID 5000 u CODE STATUS -Full code is verified on admission Charges/Coding Visit Charges Inpatient E&M: 73353 Init Hosp L2
--- NOTE | 2024-03-16 15:52 | NURSING ---
MED SURG HODA UTI, NAUSEA, VOMITING
[2024-03-16 16:16] LABS: International Normalized Ratio 1.3; Prothrombin Time (Protime)PT. 15.7 SECONDS (11.7-14.9)
[2024-03-16] MEDS: Calcium Carbonate 500 MG Tablet PO ×2 (17:23→21:42)
[2024-03-16] MEDS: Lactated Ringers 1,000 ML 100 ML IV (17:24)
[2024-03-16 18:04] LABS: Bedside Glucose 98 mg/dL (74-106)
[2024-03-16] MEDS: Albuterol 2.5 MG/3 ML VIAL.NEB. INHALATION (19:13)
[2024-03-16] MEDS: Tamsulosin HCl 0.4 MG Capsule PO (21:42)
[2024-03-16] MEDS: Sucralfate 1 GM Tablet PO (21:42)
[2024-03-16] MEDS: Amiodarone 200 MG Tablet 100 MG PO (21:42)
[2024-03-16] MEDS: Pantoprazole Sodium 40 MG in 0.9% Normal Saline (100mL MB+) 100 ML 330 MG IV (21:42)
[2024-03-16] MEDS: Metoprolol Tartrate 25 MG Tablet 12.5 MG PO (21:42)
[2024-03-16] MEDS: Ranolazine 500 MG Tablet PO (21:42)
[2024-03-16] MEDS: Glycerin/Hypromellose/PEG400 15 ml Bottle 1 DRP EACH EYE (21:52)
[2024-03-17] VITALS (8 sets, daily range): BP systolic 98–131; BP diastolic 58–81; PULSE 70–82; RESP 16–18; TEMP 36.4–36.9; O2SAT 93–97; BMI 20.5
[2024-03-17] MEDS: Levothyroxine 50 MCG Tablet PO (06:36)
[2024-03-17] MEDS: 0.9% Saline Lock 10 ML Syringe IV ×4 (06:36→21:59)
[2024-03-17] MEDS: Calcium Carbonate 500 MG Tablet PO ×2 (06:36→18:40)
[2024-03-17] MEDS: Ondansetron 4 MG/2 ML Vial IV (06:38)
[2024-03-17] MEDS: Albuterol 2.5 MG/3 ML VIAL.NEB. INHALATION ×2 (06:58→19:18)
[2024-03-17 07:18] LABS: Absolute Lymphocyte Count 0.84 X10^3/uL (0.83-4.51); Absolute Neutrophil Count 9.3 X10^3/uL (2.0-7.7); Basophil# 0.06 X10^3/uL; Basophil% 0.5 % (0-1); Eosinophil# 0.08 X10^3/uL; Eosinophils% 0.7 % (0-5); Hematocrit 34.9 % (40-54); Hemoglobin 11.7 g/dL (13.0-16.5); Lymphocyte # 0.84 X10^3/ul (0.83-4.51); Lymphocyte % 7.5 % (19-41); Mean Corp Hgb Conc 33.5 g/dL (32-36); Mean Corpuscular Hgb 37.1 pg (27.0-32.0); Mean Corpuscular Volume 110.8 fL (80-94); Mean Platelet Vol. 10.1 fl (6.2-12.0); Monocyte# 0.82 X10^3/uL; Monocyte% 7.3 % (0-10); NRBC Flagged by Analyzer 0 % (0-5); Platelet Count 204 K/mm3 (150-450); RBC Distribution Width CV 15.5 % (11.6-14.6); RBC Distribution Width SD 63.7 fl (35.1-43.9); Red Blood Count 3.15 M/mm3 (4.6-6.2); White Blood Count 11.2 K/mm3 (4.4-11.0)
[2024-03-17 07:40] LABS: International Normalized Ratio 1.3; Prothrombin Time (Protime)PT. 16.2 SECONDS (11.7-14.9)
[2024-03-17 07:55] LABS: ALB/GLOB Ratio 0.9 RATIO (0.9-2.4); AST(SGOT) 21 U/L (15-37); Alanine Aminotransfer ALT/SGPT 16 U/L (16-61); Alkaline Phosphatase 64 U/L (45-117); Anion Gap 7 (5-15); BUN 45 mg/dL (7-18); Calcium,Total 8.6 mg/dL (8.5-10.1); Chloride 105 mmol/L (98-107); EST Glomerular Filtration Rate 21 mL/min (>60); Est Glom Filt Rate - Afr Amer 26 mL/min (>60); Estimated Creatinine Clearance 16.48 ml/min; Globulin 3.5 g/dL (2.2-4.2); Glucose 89 mg/dL (74-106); Magnesium 2.2 mg/dL (1.6-2.6); Phosphorus 3.6 mg/dL (2.5-4.9); Potassium 3.4 mmol/L (3.5-5.1); Protein, Total 6.5 g/dL (6.4-8.2); Sodium Level 139 mmol/L (136-145); Thyroid Stim Hormone (TSH) 2.53 uIU/mL (0.358-3.74)
[2024-03-17] MEDS: proCHLORPERazine 10 MG/2 ML Vial 5 MG IV (11:01)
[2024-03-17] MEDS: LORazepam 0.5 MG Tablet PO (11:08)
[2024-03-17] MEDS: Sucralfate 1 GM Tablet PO ×3 (11:09→20:53)
[2024-03-17] MEDS: Amiodarone 200 MG Tablet 100 MG PO ×2 (11:09→20:53)
[2024-03-17] MEDS: Metoprolol Tartrate 25 MG Tablet 12.5 MG PO (11:09)
[2024-03-17] MEDS: Ranolazine 500 MG Tablet PO ×2 (11:10→20:53)
[2024-03-17] MEDS: Isosorbide Mononitrate 30 MG Tablet PO (11:10)
[2024-03-17] MEDS: Loratadine 10 MG Tablet PO (11:11)
[2024-03-17] MEDS: Lactulose 20 GM/30 ML UDC 10 GM PO (11:12)
[2024-03-17] MEDS: cloNIDine HCl 0.1 MG Tablet PO (11:12)
[2024-03-17] MEDS: dilTIAZem CD 120 MG Capsule PO (11:14)
[2024-03-17] MEDS: Finasteride 5 MG Tablet PO (11:16)
[2024-03-17] MEDS: Cholecalciferol (VIT D3) 25 MCG TABLET (1,000 UNITS) PO (11:17)
[2024-03-17] MEDS: Ascorbic Acid 500 MG Tablet PO (11:18)
[2024-03-17] MEDS: Pantoprazole Sodium 40 MG in 0.9% Normal Saline (100mL MB+) 100 ML 330 MG IV ×2 (11:29→20:53)
[2024-03-17] MEDS: 0.9% Normal Saline (250mL Bag) 250 ML 15 ML IV (11:29)
--- NOTE | 2024-03-17 12:35 | CASEMGMT ---
RADHA PORTER Assessment: Face to Face with pt for initial transition planning/care coordination assessment. RN GERMAN introduced self and role at [facility], pt voices understanding and consents to assessment. Pt is A&O x4 and answers all questions appropriately at this time. Pt sitting up in chair in no distress. Care providers, pharmacy, and demographics verified/updated. Admitting Dx: Intractable Nausea and Vomiting. PCP: Amor Specialists: Jesse, Air Valve Repairer Preferred Pharmacy: [facility] Insurance: [employer] Prescription Benefit: yes LNOK: MIKE, SIS Living Arrangements: Pt lives alone in a 1 story home with 2 steps to enter. ADLs: Pt states I at home with ADLs. 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 Transportation: Pt drives self and denies concerns with transportation. DME: Walker, Cane, Shower Bench, Raised Toilet Seat. HHC/SNF: Previously at [facility], pt states if needs to go to SNF would like [facility]. Denies wanting a list. Pt states previously used [facility]. Pt states no concerns with going home at time of dc. Pt states no further concerns/needs. CM to follow. Advised pt to ask CM if any further question/concerns/needs arise, voices understanding. Pt Goal: TBD Plan: TBD, will follow plan of care. Jayesh GARCIA CM
[2024-03-17] MEDS: Ensure Plus High Protein 120 ML LIQUID PO ×3 (14:00→20:55)
--- NOTE | 2024-03-17 14:12 | CASEMGMT ---
Reviewed therapy notes, noted pt walked 15 feet. RADHA CM into pt room, discussed DC plan with pt. Pt feels he is not strong enough at this time to go home and would like to [facility]. Provided a list of local SNF covered by his insurance. Informed pt will notify SW of first choice and to review list of facilities for second and third choice if unable to go to [facility]. Notified SW of patient choice.
--- NOTE | 2024-03-17 14:30 | CASEMGMT ---
Social Work SW sent referral to [facility] via [facility]. JACQUES Pereira
--- NOTE | 2024-03-17 16:12 | PN.HOSP_ITS ---
Reason for Visit Reason for Visit: Diagnoses Acute kidney failure, unspecified (03/16/24) Chronic kidney disease, stage 4 (severe) (03/16/24) Nausea with vomiting, unspecified (03/16/24) Abnormal findings on diagnostic imaging of other abdominal regions, including retroperitoneum (03/16/24) Subjective Subjective Patient was seen and examined today, he requested a diet this morning, he is not having any more nausea or vomiting. Patient's creatinine has improved. Patient still complains of generalized weakness however. Objective Data Objective Data Vital Signs: Vital Signs Temp Pulse Resp BP Pulse Ox O2 Del Method 98.5 F 73 16 99/65 97 Room Air 03/17/24 14:04 03/17/24 14:04 03/17/24 14:04 03/17/24 14:04 03/17/24 14:04 03/17/24 14:04 Oxygen Delivery Method Room Air Weight: 61.371 kg Body Mass Index (BMI) 20.5 Intake & Output: Intake and Output for Last 24 Hours 03/15/24 03/16/24 03/17/24 23:59 23:59 23:59 Intake Total 1512.5 / 2112.5 2310.25 / 2310.25 Output Total 250 / 250 250 / 250 Balance 1262.5 / 1862.5 2060.25 / 2060.25 Lab / Micro Data 03/17/24 06:54 03/17/24 06:23 Labs: Laboratory Results - last 24 hr 03/16/24 15:50: PT 15.7 H, INR 1.3 03/16/24 17:35: POC Glucose 98 03/17/24 06:23: PT 16.2 H, INR 1.3, Sodium 139, Potassium 3.4 L, Chloride 105, Carbon Dioxide 27.0, Anion Gap 7, BUN 45 H, Creatinine 3.00 H, Estim Creat Clear Calc 16.48, Est GFR (MDRD) Af Amer 26 L, Est GFR (MDRD) Non-Af 21 L, BUN/Creatinine Ratio 15.0, Glucose 89, Calcium 8.6, Phosphorus 3.6, Magnesium 2.2, Total Bilirubin 1.30 H, AST 21, ALT 16, Alkaline Phosphatase 64, Total Protein 6.5, Albumin 3.0 L, Globulin 3.5, Albumin/Globulin Ratio 0.9, TSH 2.53 07/20/24 06:54: WBC 11.2 H, RBC 3.15 L, Hgb 11.7 L, Hct 34.9 L, MCV 110.8 H, MCH 37.1 H, MCHC 33.5, RDW Std Deviation 63.7 H, RDW Coeff of [place] 15.5 H, Plt Count 204, MPV 10.1, Immature Gran % (Auto) 1.000 H, Neut % (Auto) 83.0 H, Lymph % (Auto) 7.5 L, [place] % (Auto) 7.3, Eos % (Auto) 0.7, Baso % (Auto) 0.5, Absolute Neuts (auto) 9.3 H, Absolute Lymphs (auto) 0.84, Nucleated RBC % 0 Micro: Microbiology 03/16/24 12:15 Mucosa - Nose SARS-CoV-2, Influenza & RSV (PCR) - Final Radiography Diagnostic Testing: Radiology Impression Hepatobiliary Scan Nuclear Medicine 03/16/24 15:40 IMPRESSION: Negative hepatobiliary scan. Electronically Signed: Joe Jennings MD at 10:36 EDT , Rhythm Strip Rhythm Strip: A-fib Rate: 95 Ectopy: PVC(s) Physical Exam Const alert, oriented x3, no apparent distress and average body habitus General Appearance: cooperative, well kempt and well developed Orientation / Consciousness: awake, oriented to person, oriented to place and oriented to time HEENT normocephalic, head/scalp atraumatic and moist oral mucous membranes Eyes PERRL, EOMs intact bilaterally and conjunctivae normal Neck supple, no JVD, thyroid normal and no carotid bruits General: trachea midline Resp normal respiratory effort, no retractions, no use of accessory muscles and clear to auscultation bilaterally Auscultation: Negative for rales, rhonchi or wheezes Cardio regular rate, regular rhythm, S1 normal heart sound, S2 normal heart sound, no murmurs, no rub and no gallops GI normal to inspection, nondistended, normoactive bowel sounds, soft to palpation, non-tender and non-distended Extremity no clubbing, cyanosis or edema Skin no rashes or lesions noted General Skin Exam: no breakdown Neuro oriented x3, CN's II-XII intact bilaterally, moves all extremities, no focal motor deficits and no sensory deficits noted Sensorium / Orientation: awake and alert Speech: speech normal Psych affect normal Assessment & Plan Assessment/Plan (1) Intractable nausea and vomiting: PLAN: Plan 1. Intractable nausea and vomiting-etiology unclear, this is resolved at this time the patient is on a regular diet. Patient's HIDA scan was unremarkable. #2 acute kidney injury superimposed on chronic kidney disease stage IIIb- patient's creatinine has improved today, he is not on IV fluids at this time #3 acute generalized weakness secondary to uncontrolled nausea and vomiting and acute kidney injury-PT and OT are continuing to see the patient #4 coronary artery disease-stable at this time #5 chronic heart failure with reduced ejection fraction-stable at this time- complicates care, management, recovery, and prognosis Total clinical time spent by myself addressing the patient's medical issues, reviewing all of his data, and collaborating with patient's care team: 35 minutes Charges/Coding Visit Charges Inpatient E&M: 20660 Subs Hosp L2
[2024-03-17] MEDS: Potassium Chloride Oral Tablet 20 MEQ 40 MEQ PO (16:40)
[2024-03-17] MEDS: Acetaminophen 500 MG Tablet 1000 MG PO (19:58)
[2024-03-17] MEDS: Tamsulosin HCl 0.4 MG Capsule PO (20:53)
[2024-03-18 03:00] VITALS: BP 109/69; PULSE 77; RESP 16; TEMP 36.6; O2SAT 94
[2024-03-18] MEDS: Calcium Carbonate 500 MG Tablet PO (05:21)
[2024-03-18 05:22] VITALS: BMI 20.9
[2024-03-18] MEDS: Sucralfate 1 GM Tablet PO (05:22)
[2024-03-18] MEDS: Levothyroxine 50 MCG Tablet PO (05:22)
[2024-03-18 05:48] LABS: Anion Gap 7 (5-15); BUN 48 mg/dL (7-18); BUN/Creat Ratio 16.1 RATIO (10-20); Calcium,Total 8.4 mg/dL (8.5-10.1); Chloride 107 mmol/L (98-107); Creatinine, Serum 2.99 mg/dL (0.70-1.30); EST Glomerular Filtration Rate 21 mL/min (>60); Est Glom Filt Rate - Afr Amer 26 mL/min (>60); Estimated Creatinine Clearance 16.95 ml/min; Glucose 92 mg/dL (74-106); Potassium 3.9 mmol/L (3.5-5.1); Sodium Level 138 mmol/L (136-145)
[2024-03-18 07:03] VITALS: PULSE 74; RESP 16; O2SAT 97
[2024-03-18] MEDS: Albuterol 2.5 MG/3 ML VIAL.NEB. INHALATION (07:03)
[2024-03-18 08:21] VITALS: BP 123/88; PULSE 83; RESP 18; TEMP 36.6; O2SAT 92
[2024-03-18 08:23] VITALS: PULSE 83; RESP 18; O2SAT 92
--- NOTE | 2024-03-18 08:27 | DCINST_ITS ---
Discharge Instructions Diet Discharge Diet: No restrictions Activity Discharge Activity: Return to Normal Activity Weight Bearing Status: Full weight bearing Follow Up Care Test Results: Test results from this visit will be discussed in further detail at your follow- up appointment, if applicable. Discharge Plan Admission Admit Date/Time: 03/16/24 15:28 Primary Reason for Your Visit: Generalized weakness, Attending Provider: Nagi Shanks Primary Care Provider: César Chinchilla Consulting Providers: Leilani Stone Instructions Additional Instructions / Restrictions: Do not take any aspirin, ibuprofen, Aleve. Take Tylenol for pain Watch for any abnormal bleeding from the nose, in the urine, or in the stool Discharge Orders/Prescriptions Prescriptions: New Eliquis 5 mg tablet 5 mg PO BID Qty: 60 0RF Continued tamsulosin 0.4 mg capsule 0.4 mg PO BID ascorbic acid (vitamin C) 500 mg tablet 500 mg PO DAILY finasteride 5 mg tablet 5 mg PO DAILY clonidine HCl 0.1 mg tablet 0.05 - 0.1 mg PO QDAY PRN (Reason: hypertension) meclizine 12.5 mg tablet 12.5 mg PO TID PRN (Reason: dizziness) baclofen 10 mg tablet 5 - 10 mg PO TID PRN (Reason: HICCOUGHS OR MUSCLE PAIN) trazodone 50 mg tablet 25 mg PO QHS PRN (Reason: insomnia) metoprolol tartrate 25 mg tablet 12.5 mg PO BID magnesium chloride [Mag 64] 64 mg tablet,delayed release (DR/EC) 64 mg PO BID ondansetron HCl 4 mg tablet 4 mg PO Q4H PRN (Reason: nausea and vomiting) pantoprazole 40 mg tablet,delayed release (DR/EC) 40 mg PO BID isosorbide mononitrate 30 mg tablet extended release 24 hr 30 mg PO QDAY lorazepam 0.5 mg tablet 0.5 mg PO QDAY acetaminophen 500 mg tablet 1,000 mg PO Q8H PRN (Reason: PAIN 1-10) diltiazem HCl 120 mg capsule,extended release 24 hr 120 mg PO DAILY potassium chloride 20 mEq tablet,ER particles/crystals 20 meq PO TID vitamin B complex Capsule 1 cap PO BID cholecalciferol (vitamin D3) [Vitamin D3] 25 mcg (1,000 unit) Capsule 1,000 unit PO DAILY nitroglycerin 0.4 mg Tablet, Sublingual 0.4 mg sublingual Q5M PRN (Reason: Cardiac/Chest Pain) Qty: 0 0RF Jardiance 10 mg Tablet 10 mg PO DAILY Qty: 0 0RF loratadine [Claritin] 10 mg tablet 10 mg PO DAILY albuterol sulfate 2.5 mg /3 mL (0.083 %) Solution For Nebulization 2.5 mg inhalation Q6HWA.RT Qty: 0 0RF levothyroxine 50 mcg Tablet 50 mcg PO 0600 Qty: 0 0RF lactulose 20 gram/30 mL Solution 10 g PO DAILY Qty: 0 0RF Culturelle 10 billion cell capsule 1 cap PO DAILY lidocaine 4 % adhesive patch,medicated 1 patch topical Q12H Rx Instructions: 12 HOUR ON/12 HOURS OFF melatonin 3 mg Tablet 3 mg PO QHS PRN (Reason: Insomnia) hydralazine 50 mg Tablet 50 mg PO 4X/DAY PRN (Reason: BP) ranolazine 500 mg tablet extended release 12 hr 500 mg PO BID Qty: 60 11RF furosemide 40 mg tablet 40 mg PO BID Qty: 60 11RF amiodarone 100 mg tablet 100 mg PO BID Qty: 180 3RF Discontinued famotidine 20 mg tablet 20 mg PO BID Referrals / Follow Up: César Chinchilla MD [Primary Care Provider] - Within 2 Weeks Krishna Grace NP, [employer] [Med Staff - Adv Practice Prof] - See Referral Note (In 2 to 3 weeks) Disposition Disposition (needs filled in before D/C Order can be placed): Home, Self Care
[2024-03-18] MEDS: cloNIDine HCl 0.1 MG Tablet PO (09:38)
[2024-03-18] MEDS: Lactulose 20 GM/30 ML UDC 10 GM PO (09:39)
[2024-03-18] MEDS: dilTIAZem CD 120 MG Capsule PO (09:39)
[2024-03-18] MEDS: Amiodarone 200 MG Tablet 100 MG PO (09:40)
[2024-03-18 09:41] VITALS: BP 123/88; PULSE 83
[2024-03-18] MEDS: Metoprolol Tartrate 25 MG Tablet 12.5 MG PO (09:41)
[2024-03-18] MEDS: Isosorbide Mononitrate 30 MG Tablet PO (09:41)
--- NOTE | 2024-03-18 09:42 | DS.PCM_ITS ---
Providers Date of Admission: 03/16/24 Date of Discharge: 03/18/24 Primary Care Physician: Dr. César Chinchilla MD Reason For Visit: INTRACTABLE NAUSEA AND VOMITING Diagnosis Discharge Diagnosis (1) Intractable nausea and vomiting: Status: Acute Code(s): R11.2 - Nausea with vomiting, unspecified Plan 1. Intractable nausea and vomiting-etiology unclear, this is resolved at this time the patient is on a regular diet. Patient's HIDA scan was unremarkable. #2 acute kidney injury superimposed on chronic kidney disease stage IIIb- patient's creatinine has improved today, he is not on IV fluids at this time #3 acute generalized weakness secondary to uncontrolled nausea and vomiting and acute kidney injury-PT and OT are continuing to see the patient #4 coronary artery disease-stable at this time #5 chronic heart failure with reduced ejection fraction-stable at this time- complicates care, management, recovery, and prognosis #6 chronic atrial fibrillation Total clinical time spent by myself addressing the patient's medical issues, reviewing all of his data, and collaborating with patient's care team: 35 minutes Medications at Discharge Home Medications tamsulosin 0.4 mg capsule 0.4 mg PO BID bladder 11/18/21 vitamin B complex 1 cap PO BID supplement 05/01/22 ascorbic acid (vitamin C) 500 mg tablet 500 mg PO DAILY supplement 07/20/22 finasteride 5 mg tablet 5 mg PO DAILY prostate 08/05/22 cholecalciferol (vitamin D3) 25 mcg (1,000 unit) capsule (Vitamin D3) 1,000 unit PO DAILY supplement 02/19/23 loratadine 10 mg tablet (Claritin) 10 mg PO DAILY allergies 06/16/23 empagliflozin 10 mg tablet (Jardiance) 10 mg PO DAILY Diabetes #0 tabs 07/22/23 nitroglycerin 0.4 mg sublingual tablet 0.4 mg sublingual Q5M PRN Cardiac/Chest Pain #0 tabs 07/22/23 albuterol sulfate 2.5 mg/3 mL (0.083 %) solution for nebulization 2.5 mg (3 mL) inhalation Q6HWA.RT #0 mL 08/04/23 lactulose 20 gram/30 mL oral solution 10 g (15 mL) PO DAILY #0 mL 08/04/23 levothyroxine 50 mcg tablet 50 mcg PO 0600 #0 tabs 08/04/23 ranolazine 500 mg tablet,extended release,12 hr 500 mg PO BID #60 tabs 02/03/24 acetaminophen 500 mg tablet 1,000 mg PO Q8H PRN PAIN 1-10 02/28/24 baclofen 10 mg tablet 5 - 10 mg PO TID PRN HICCOUGHS OR MUSCLE PAIN 02/28/24 clonidine HCl 0.1 mg tablet 0.05 - 0.1 mg PO QDAY PRN hypertension 02/28/24 diltiazem HCl 120 mg capsule,24 hr,extended release 120 mg PO DAILY 02/28/24 isosorbide mononitrate 30 mg tablet,extended release 24 hr 30 mg PO QDAY 02/28/24 lorazepam 0.5 mg tablet 0.5 mg PO QDAY 02/28/24 magnesium chloride 64 mg (magnesium chloride) tablet,delayed release (Mag 64) 64 mg PO BID 02/28/24 meclizine 12.5 mg tablet 12.5 mg PO TID PRN dizziness 02/28/24 metoprolol tartrate 25 mg tablet 12.5 mg PO BID BP 02/28/24 ondansetron HCl 4 mg tablet 4 mg PO Q4H PRN nausea and vomiting 02/28/24 pantoprazole 40 mg tablet,delayed release 40 mg PO BID 02/28/24 potassium chloride 20 mEq tablet,extended release(part/cryst) 20 meq PO TID 02/28/24 trazodone 50 mg tablet 25 mg PO QHS PRN insomnia 02/28/24 amiodarone 100 mg tablet 100 mg PO BID heart #180 tabs 02/29/24 furosemide 40 mg tablet 40 mg PO BID #60 tabs 02/29/24 Lactobacillus rhamnosus GG 10 billion cell capsule (Culturelle) 1 cap PO DAILY 03/16/24 hydralazine 50 mg tablet 50 mg PO 4X/DAY PRN BP 03/16/24 lidocaine 4 % topical patch 1 patch topical Q12H 03/16/24 melatonin 3 mg tablet 3 mg PO QHS PRN Insomnia 03/16/24 apixaban 5 mg tablet (Eliquis) 5 mg PO BID #60 tabs 03/18/24 Hospital Course Operations None Procedures None Summary of Care Provided Minutes Spent on Discharge: 31 Hospital Course: This 83-year-old white male was seen in the emergency room at [facility] with complaints of nausea vomiting and weakness x 2 days. Workup in the emergency room showed a normal white blood cell count, hemoglobin was normal, chemistry panel was remarkable for creatinine of 3.9 and a BUN of 60, urinalysis was unremarkable. Abdominal and pelvic CT was performed which showed a distended gallbladder and sigmoid diverticulosis. Gallbladder ultrasound was performed which showed a distended gallbladder and thickened gallbladder wall along with fatty infiltration of the liver. Patient was admitted to [place] [id number] for acute kidney injury on a backdrop of chronic kidney disease and generalized weakness, he was seen by PT and OT and repeat labs showed an improvement in his creatinine and BUN. Physical therapy did not recommend continued physical therapy and the patient declined going to a assisted facility. I talked with the patient concerning anticoagulation due to his chronic atrial fibrillation, he had been taken off anticoagulants last fall due to a GI bleed. Patient understands the risks of taking anticoagulants and agreed to go on an anticoagulant due to fears of increased risk of stroke. Patient was placed on Eliquis at the time of discharge. On 03/18/2024, patient was seen and examined: On examination he appeared in good health and spirits. Vital signs as documented. Skin warm and dry and without overt rashes. Neck without JVD, neck was supple, trachea midline, thyroid was normal. Lungs clear bilaterally, normal air movement was noted. Heart exam notable for irregular rhythm, normal sounds and absence of murmurs, rubs or gallops. Abdomen unremarkable and without evidence of organomegaly, masses, or abdominal aortic enlargement. Bowel sounds are present, abdomen is not distended. Extremities nonedematous, no cyanosis was noted, no clubbing was noted. Neuro: Cranial nerves II through XII are grossly intact, no focal motor deficits were noted, sensation to light touch and pinprick intact, motor exam 5/5 throughout. Psych: Patient is alert and oriented x3, he does not appear anxious or depressed, he does not appear agitated. On 03/18/2024, patient was seen and examined and felt to be in stable condition for discharge home. Weight / BMI Weight Weight: 62.9 kg Body Mass Index (BMI) 20.9 ABG / Lab / Microbiology Data 03/17/24 06:54 03/18/24 04:34 Laboratory: Laboratory Results - last 24 hr 03/18/24 04:34: Sodium 138, Potassium 3.9, Chloride 107, Carbon Dioxide 24.0, Anion Gap 7, BUN 48 H, Creatinine 2.99 H, Estim Creat Clear Calc 16.95, Est GFR (MDRD) Af Amer 26 L, Est GFR (MDRD) Non-Af 21 L, BUN/Creatinine Ratio 16.1, Glucose 92, Calcium 8.4 L Microbiology: Microbiology 03/16/24 12:15 Mucosa - Nose SARS-CoV-2, Influenza & RSV (PCR) - Final Radiography Diagnostic Testing: Radiology Impression Hepatobiliary Scan Nuclear Medicine 03/16/24 15:40 IMPRESSION: Negative hepatobiliary scan. Electronically Signed: Joe Jennings MD at 10:36 EDT Reading Location ID and State: [facility] / [place] , Service support , D/C Instructions Discharge Diet: No restrictions Weight Bearing Status: Full weight bearing Meaningful Use Info Meaningful Use Meaningful Use Diagnoses (Choose all that apply): None applicable Ischemic Stroke Statin Dosing Therapy Reference: STATIN DOSE THERAPY REFERENCE: * Patients > 75 years receive moderate or high dose statin therapy. * Patients 75 years or YOUNGER should receive HIGH intensity statin dose unless contraindicated. You will be required to document reason for non-treatment if statin daily dose does not meet guidelines. HIGH DOSE STATIN THERAPY DAILY Atorvastatin > than or = to 40 mg Rosuvastatin > than or = to 20 mg Amlodipine + Atorvastatin > than or = to 2.5/40 mg Ezetimibe + Simvastatin 10/80 mg Simvastatin 80mg Discharge Plan Admission Admit Date/Time: 03/16/24 15:28 Primary Reason for Your Visit: Generalized weakness, Attending Provider: Nagi Shanks Primary Care Provider: César Chinchilla Consulting Providers: Leilani Stone Instructions Additional Instructions / Restrictions: Do not take any aspirin, ibuprofen, Aleve. Take Tylenol for pain Watch for any abnormal bleeding from the nose, in the urine, or in the stool Discharge Orders/Prescriptions Prescriptions: New Eliquis 5 mg tablet 5 mg PO BID Qty: 60 0RF Continued tamsulosin 0.4 mg capsule 0.4 mg PO BID ascorbic acid (vitamin C) 500 mg tablet 500 mg PO DAILY finasteride 5 mg tablet 5 mg PO DAILY clonidine HCl 0.1 mg tablet 0.05 - 0.1 mg PO QDAY PRN (Reason: hypertension) meclizine 12.5 mg tablet 12.5 mg PO TID PRN (Reason: dizziness) baclofen 10 mg tablet 5 - 10 mg PO TID PRN (Reason: HICCOUGHS OR MUSCLE PAIN) trazodone 50 mg tablet 25 mg PO QHS PRN (Reason: insomnia) metoprolol tartrate 25 mg tablet 12.5 mg PO BID magnesium chloride [Mag 64] 64 mg tablet,delayed release (DR/EC) 64 mg PO BID ondansetron HCl 4 mg tablet 4 mg PO Q4H PRN (Reason: nausea and vomiting) pantoprazole 40 mg tablet,delayed release (DR/EC) 40 mg PO BID isosorbide mononitrate 30 mg tablet extended release 24 hr 30 mg PO QDAY lorazepam 0.5 mg tablet 0.5 mg PO QDAY acetaminophen 500 mg tablet 1,000 mg PO Q8H PRN (Reason: PAIN 1-10) diltiazem HCl 120 mg capsule,extended release 24 hr 120 mg PO DAILY potassium chloride 20 mEq tablet,ER particles/crystals 20 meq PO TID vitamin B complex Capsule 1 cap PO BID cholecalciferol (vitamin D3) [Vitamin D3] 25 mcg (1,000 unit) Capsule 1,000 unit PO DAILY nitroglycerin 0.4 mg Tablet, Sublingual 0.4 mg sublingual Q5M PRN (Reason: Cardiac/Chest Pain) Qty: 0 0RF Jardiance 10 mg Tablet 10 mg PO DAILY Qty: 0 0RF loratadine [Claritin] 10 mg tablet 10 mg PO DAILY albuterol sulfate 2.5 mg /3 mL (0.083 %) Solution For Nebulization 2.5 mg inhalation Q6HWA.RT Qty: 0 0RF levothyroxine 50 mcg Tablet 50 mcg PO 0600 Qty: 0 0RF lactulose 20 gram/30 mL Solution 10 g PO DAILY Qty: 0 0RF Culturelle 10 billion cell capsule 1 cap PO DAILY lidocaine 4 % adhesive patch,medicated 1 patch topical Q12H Rx Instructions: 12 HOUR ON/12 HOURS OFF melatonin 3 mg Tablet 3 mg PO QHS PRN (Reason: Insomnia) hydralazine 50 mg Tablet 50 mg PO 4X/DAY PRN (Reason: BP) ranolazine 500 mg tablet extended release 12 hr 500 mg PO BID Qty: 60 11RF furosemide 40 mg tablet 40 mg PO BID Qty: 60 11RF amiodarone 100 mg tablet 100 mg PO BID Qty: 180 3RF Discontinued famotidine 20 mg tablet 20 mg PO BID Referrals / Follow Up: César Chinchilla MD [Primary Care Provider] - Within 2 Weeks Krishna Grace NP, [employer] [Med Staff - Adv Practice Prof] - See Referral Note (In 2 to 3 weeks) Disposition Disposition (needs filled in before D/C Order can be placed): Home, Self Care Charges/Coding Visit Charges Inpatient E&M: 14105 Disch Hosp >30min
[2024-03-18] MEDS: Ensure Plus High Protein 120 ML LIQUID PO (09:43)
[2024-03-18] MEDS: Ranolazine 500 MG Tablet PO (09:43)
[2024-03-18] MEDS: 0.9% Saline Lock 10 ML Syringe IV (09:57)
[2024-03-18] MEDS: Pantoprazole Sodium 40 MG in 0.9% Normal Saline (100mL MB+) 100 ML 330 MG IV (09:57)
[2024-03-18] MEDS: LORazepam 0.5 MG Tablet PO (09:57)
[2024-03-18 12:30] VITALS: BP 121/77; PULSE 80; RESP 18; TEMP 36.6; O2SAT 93
== END 2024-03-18 13:25 | disposition home or self-care (01) | DRG 683 ==
LOC: ED 15:48 → MS3 16:08
PROVIDERS: Admitting Provider Internal Medicine; Emergency Provider Emergency Medicine; PCP Family Medicine; Visit Provider Internal Medicine
DX: N17.9 Acute kidney failure, unspecified (principal); I13.0 Hypertensive heart and chronic kidney disease with heart failure and stage 1 through stage 4 chronic kidney disease, or unspecified chronic kidney disease; N13.8 Other obstructive and reflux uropathy; I50.22 Chronic systolic (congestive) heart failure; D63.1 Anemia in chronic kidney disease; E86.0 Dehydration; I48.0 Paroxysmal atrial fibrillation; J44.9 Chronic obstructive pulmonary disease, unspecified; N18.32 Chronic kidney disease, stage 3b; E03.9 Hypothyroidism, unspecified; K21.9 Gastro-esophageal reflux disease without esophagitis; I25.10 Atherosclerotic heart disease of native coronary artery without angina pectoris; E78.00 Pure hypercholesterolemia, unspecified; R11.2 Nausea with vomiting, unspecified; K59.09 Other constipation; I25.2 Old myocardial infarction; N40.1 Benign prostatic hyperplasia with lower urinary tract symptoms; Z95.5 Presence of coronary angioplasty implant and graft; Z79.899 Other long term (current) drug therapy; Z87.19 Personal history of other diseases of the digestive system
CPT/HCPCS: 36415; 74176; 76705; 78227; 80048; 80053; 81001; 82962; 83690; 83735; 84100; 84443; 84484; 85025; 85610; 87631; 93005; 94640; 94668; 97162; 97165; 97530; 97802; 99285; A9537; J7030; J7050; J7120; A4216; J2405; J2805

== ENCOUNTER 2024-03-20 12:03 | Inpatient (IN) | payer MEDICARE, OTHER, SELFPAY ==
[2024-03-20] VITALS (16 sets, daily range): BP systolic 127–147; BP diastolic 78–93; PULSE 62–110; RESP 18–27; TEMP 36.3–36.9; O2SAT 91–99; BMI 20.9
--- NOTE | 2024-03-20 12:23 | EDS_ITS ---
HPI History of Present Illness Chief Complaint: Shortness of Breath Informant: patient Onset/Context/Timing Onset: Today and Yesterday Context: gradual Timing: Continuous Current Severity: Mild Maximum Severity: Mild Worsened by: Nothing Relieved by: Nothing and Oxygen Associated Symptoms cough Chest Pain: Positive for None Narrative Narrative: 83-year-old male history of A-fib, [place], CHF, COPD reportedly on a blood thinner Eliquis. Recent hospitalization. Discharge I believe on Tuesday. Was complaining of nausea and dry heaves and shortness of breath. He is not typically not on oxygen at home. Reportedly discordancy was 84% on room air. He states he has a nonproductive cough. No fever. No leg pain or swelling. No hemoptysis. No chest pain. PE Risk Factors: Positive for Recent immobilization; Negative for Cancer, OCP + Smoking + > 35, Prior DVT or PE, Recent surgery or Recent travel Prior similar symptoms: Yes Recent Illness/Hospitalization: Yes PFSH PFS Medical History Persistent atrial fibrillation Hearing loss, left Hearing loss, right Anxiety Chronic pain Rheumatoid arthritis COPD (chronic obstructive pulmonary disease) Irregular heart beat Hypertension Hypothyroidism Hiatal hernia Acute constipation Acute exacerbation of chronic low back pain Wears glasses Thyroid disease Ambulates with cane Arthritis History of renal disease Anemia High cholesterol Easy bruising Excessive bleeding History of leukemia Back pain Difficulty chewing History of diverticulitis Gastric reflux Sleep apnea History of pain when walking History of edema History of echocardiogram History of stress test Cardiology follow-up encounter History of heart attack Nausea and vomiting Chronic anemia Diarrhea Colitis Acute kidney injury Sleep apnea Acute kidney injury superimposed on chronic kidney disease On amiodarone therapy Elevated LFTs Thoracic aortic aneurysm (TAA) Chronic heart failure with preserved ejection fraction (HFpEF) Nonrheumatic mitral (valve) insufficiency Atypical atrial flutter (12/2020) Elevated liver enzymes Debility Dysphagia Osteoarthritis History of colon polyps Cancer Kidney stones Kidney disease Non-smoker CPAP (continuous positive airway pressure) dependence Atrial fibrillation Myocardial infarct Chronic renal insufficiency Acute gastrointestinal bleeding Chronic kidney disease Benign prostatic hyperplasia Stage 3b chronic kidney disease GI bleed (2012) Non-rheumatic tricuspid valve insufficiency Secondary pulmonary arterial hypertension Essential (primary) hypertension BPH (benign prostatic hyperplasia) History of hyperthyroidism Paroxysmal atrial fibrillation 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 HLD (hyperlipidemia) Home Medications ?Medication ?Instructions ?Recorded ?Last Taken ?Type tamsulosin 0.4 mg capsule 0.4 mg PO BID PROSTATE 11/18/21 06/20/23 History vitamin B complex 1 cap PO BID supplement 05/01/22 03/15/24 History ascorbic acid (vitamin C) 500 mg 500 mg PO QHS SUPPLEMENT 07/20/22 03/15/24 History tablet finasteride 5 mg tablet 5 mg PO DAILY PROSTATE 08/05/22 03/15/24 History cholecalciferol (vitamin D3) 25 1,000 unit PO DAILY supplement 02/19/23 03/15/24 History mcg (1,000 unit) capsule (Vitamin D3) loratadine 10 mg tablet (Claritin) 10 mg PO DAILY allergies 06/16/23 03/15/24 History empagliflozin 10 mg tablet 10 mg PO DAILY Diabetes #0 tabs 07/22/23 03/15/24 Rx (Jardiance) nitroglycerin 0.4 mg sublingual 0.4 mg sublingual Q5M PRN 07/22/23 Unknown Rx tablet Cardiac/Chest Pain #0 tabs albuterol sulfate 2.5 mg/3 mL 2.5 mg (3 mL) inhalation Q6HWA.RT 08/04/23 03/15/24 Rx (0.083 %) solution for nebulization #0 mL lactulose 20 gram/30 mL oral 10 g (15 mL) PO DAILY #0 mL 08/04/23 03/15/24 Rx solution levothyroxine 50 mcg tablet 50 mcg PO 0600 THYROID #0 tabs 08/04/23 03/15/24 Rx ranolazine 500 mg tablet,extended 500 mg PO BID CHEST PAIN #60 tabs 02/03/24 03/15/24 Rx release,12 hr acetaminophen 500 mg tablet 1,000 mg PO Q8H PRN PAIN 1-10 02/28/24 03/15/24 History baclofen 10 mg tablet 5 - 10 mg PO TID PRN HICCOUGHS OR 02/28/24 03/15/24 Histor y MUSCLE PAIN clonidine HCl 0.1 mg tablet 0.05 - 0.1 mg PO QDAY PRN 02/28/24 03/15/24 History hypertension diltiazem HCl 120 mg capsule,24 120 mg PO DAILY 02/28/24 03/15/24 History hr,extended release isosorbide mononitrate 30 mg 30 mg PO DAILY CHEST PAIN 02/28/24 03/15/24 History tablet,extended release 24 hr lorazepam 0.5 mg tablet 0.5 mg PO QDAY 02/28/24 03/15/24 History magnesium chloride 64 mg 64 mg PO BID 02/28/24 03/15/24 History (magnesium chloride) tablet,delayed release (Mag 64) meclizine 12.5 mg tablet 12.5 mg PO TID PRN dizziness 02/28/24 03/15/24 History metoprolol tartrate 25 mg tablet 12.5 mg PO BID BP 02/28/24 03/15/24 History ondansetron HCl 4 mg tablet 4 mg PO Q4H PRN nausea and vomiting 02/28/24 Unknown History pantoprazole 40 mg tablet,delayed 40 mg PO BID 02/28/24 03/15/24 History release potassium chloride 20 mEq 20 meq PO TID 02/28/24 03/15/24 History tablet,extended release(part/cryst) trazodone 50 mg tablet 25 mg PO QHS PRN INSOMNIA 02/28/24 03/15/24 History amiodarone 100 mg tablet 100 mg PO BID HEART #180 tabs 02/29/24 03/15/24 Rx furosemide 40 mg tablet 40 mg PO BID EDEMA #60 tabs 02/29/24 03/15/24 Rx Lactobacillus rhamnosus GG 10 1 cap PO DAILY GUT HEALTH 03/16/24 03/15/24 History billion cell capsule (Culturelle) hydralazine 50 mg tablet 50 mg PO 4X/DAY PRN BLOOD PRESSURE 03/16/24 03/15/24 History lidocaine 4 % topical patch 1 patch topical Q12H 03/16/24 03/15/24 History melatonin 3 mg tablet 3 mg PO QHS PRN Insomnia 03/16/24 Unknown History apixaban 5 mg tablet (Eliquis) 5 mg PO BID BLOOD THINNER #60 tabs 03/18/24 Unknown Rx diltiazem HCl 120 mg 120 mg PO DAILY 03/20/24 Unknown History capsule,extended release 24 hr famotidine 20 mg tablet 20 mg PO BID 03/20/24 Unknown History Allergy/AdvReac Type Severity Reaction Status Date / Time diclofenac Allergy rash Verified 03/20/24 12:08 prednisone Allergy Rash Verified 03/20/24 12:08 Family History Father Cancer Prostate cancer Mother Hypertension Sister Hypertension Surgical History History of back surgery History of cardiac catheterization History of esophagogastroduodenoscopy (EGD) History of cardioversion (06/18/19) History of radiofrequency ablation procedure for cardiac arrhythmia (11/11/11) History of electrophysiologic study (08/08/00) History of left heart catheterization (07/17/12) History of hemorrhoidectomy History of Zenaida fundoplication History of coronary artery stent placement (08/04/00) History of hernia repair History of back surgery Social History household members: none Smoking Status: Never smoker alcohol intake: never substance use type: does not use caffeine: No ROS ROS ED ROS Narrative Cough. Shortness of breath. Dry heaves. Review of Systems ROS Unobtainable: Denies due to encephalopathy Constitutional Constitutional ED: Denies chills or fever(s) Eyes Eyes: Denies blurry vision ENT ENT ED: Denies ear pain Cardiovascular Cardiovascular: Denies chest pain Respiratory/Chest Respiratory/Chest: Reports cough and dyspnea Gastrointestinal Gastrointestinal: Reports nausea; Denies abdominal pain, constipation, diarrhea, melena or vomiting Genitourinary Genitourinary ED: Denies dysuria or hematuria Musculoskeletal Musculoskeletal: Denies arthralgias or back pain Integumentary Denies abscess Neurologic Neurologic: Denies headache(s) Psychiatric Psychiatric: Denies anxiety Endocrine Endocrinology: Denies cold intolerance Hematologic/Lymphatic Hematologic/Lymphatic: Denies easy bleeding Allergic/Immunologic Allergic/Immunologic ED: Denies mouth swelling EXAM Physical Exam Narrative Exam Narrative: 19-year-old male vital signs are stable on 3 L and 99%. He is not hypoxic on oxygen reportedly off oxygen is 84% antibiotics. H EENT exam unremarkable. Neck nontender. Lungs clear to auscultation bilaterally. No significant wheezing. No rales or rhonchi. Equal symmetrical. Heart rate about 65. Chest wall ribs nontender. Abdomen soft nontender. Moving all 4 extremities. Nontender, no edema or cords. Neurologically is awake and alert answer questions follow commands. EKG Const Vital Signs: 03/20/24 12:05 03/20/24 12:09 03/20/24 12:09 Temperature 97.4 F L 97.4 F L Temperature Source Oral Oral Pulse Rate 62 64 Respiratory Rate 18 19 H Respiratory Effort Normal Short of Breath Respiratory Depth Normal Respiratory Pattern Normal Blood Pressure 144/85 H 144/85 H Blood Pressure Mean 104 104 Pulse Ox 99 99 Oxygen Delivery Method Nasal Cannula Nasal Cannula Nasal Cannula Oxygen Flow Rate (L/min) 3 3 3 03/20/24 12:24 03/20/24 12:49 03/20/24 12:58 Temperature Temperature Source Pulse Rate 95 89 Respiratory Rate 20 H 20 H Respiratory Effort Respiratory Depth Respiratory Pattern Normal Normal Blood Pressure Blood Pressure Mean Pulse Ox Oxygen Delivery Method Nasal Cannula Oxygen Flow Rate (L/min) 3 03/20/24 13:08 03/20/24 14:04 Temperature 98.2 F Temperature Source Temporal Pulse Rate 97 100 Respiratory Rate 27 H 24 H Respiratory Effort Respiratory Depth Respiratory Pattern Blood Pressure 144/93 H 146/85 H Blood Pressure Mean 110 105 Pulse Ox 99 92 Oxygen Delivery Method Nasal Cannula Nasal Cannula Oxygen Flow Rate (L/min) 3 3 Positive well nourished and well developed; Negative for obese, cachectic, contractures or unkempt General Appearance ED: well developed and NAD; Negative for unkempt, cachectic, contractures or pallor Nutritional Appearance: Negative for cachectic or obese HEENT Reports moist mucous membranes; Denies dry mucous membranes or other atraumatic; Negative for trauma, tenderness or other Mouth ED: No dry mucous membranes Mouth: No dry mucous membranes Eyes PERRL and EOMs intact bilaterally General Eye ED: Negative for pale conjunctiva, scleral icterus or other Neck no lymphadenopathy, supple, no meningeal signs and no JVD General: Negative for tenderness Lymph Lymphatic: Negative for other Chest Wall Chest: Negative for other Resp normal respiratory effort and clear to auscultation bilaterally Effort and Inspection: Negative for pain with movement Auscultation: Negative for rales, rhonchi or wheezes Cardio regular rate, regular rhythm, S1 normal heart sound, S2 normal heart sound and no murmurs Rate: Negative for bradycardia or tachycardic GI non-tender, non-distended and no masses Inspection: Negative for other Auscultation: normoactive bowel sounds Palpation: soft; Negative for tender or guarding Back/Spine no CVA tenderness and normal to inspection General Back: Negative for CVA tenderness or tenderness Extremity normal to inspection General Extremety ED: Negative for edema or tenderness General Extremity: Negative for edema Neuro oriented x3 and CN's II-XII intact bilaterally Sensorium / Orientation: alert, oriented to person, oriented to place and oriented to time; Negative for orientation impaired, confused, lethargic or stuporous Motor Exam: strength 5/5 throughout Psych mental status grossly normal Appearance: Negative for unkempt Attitude: No agitated Mood & Affect: Negative for depressed, anxious or tearful Thought Process: normal thought process Skin no wounds and skin turgor normal General Skin Exam: Negative for jaundice or pallor Lesions: no lesions Rashes: no rashes Trauma: Negative for abrasion or laceration MDM MDM MDM Narrative Medical decision making narrative: 81-year-old male with hypoxia shortness of breath history of COPD A-fib and CHF. Recent hospitalization. Screening labs to be obtained. I will give him 1 DuoNeb aerosol even though currently he is not wheezing and be reassessed. He r eportedly is on a blood thinner Eliquis for his A-fib. Repeat exam at 2:58 PM patient is a little improved with his aerosol. I think is a combination of COPD and CHF. Given he does not have a home O2 and his pulse ox was 84% at home on room air, speak to hospitalist about admitting him treating for both CHF and COPD and see if we can get him improved and discharged home again. Patient is comfortable with that plan. I have spoken to the hospitalist. He will be given IV Lasix 40 mg. History & Record Review Discussion w/independent historian: Patient Additional record(s) reviewed:: Prior inpatient record, Prior outpatient record, Prior ED visit and Prior labs Lab Data Attestation: I reviewed the patient's lab results. Lab results narrative: CBC showed white count 12.9. H&H 11.8 and 34.8. Platelets 217. Electrolytes shows sodium 139. Gap 9. BUN of 40 creatinine 2.68. Troponin is normal at 58. BNP is elevated 2,318. Compared to prior labs is around his baseline. His BNP is higher than most of his prior BMPs. Labs: Laboratory Results - last 24 hr 03/20/24 12:24 WBC 12.9 H RBC 3.16 L Hgb 11.8 L Hct 34.8 L MCV 110.1 H MCH 37.3 H MCHC 33.9 RDW Std Deviation 63.6 H RDW Coeff of Pablo 15.6 H Plt Count 217 MPV 10.5 Immature Gran % (Auto) 1.000 H Neut % (Auto) 87.0 H Lymph % (Auto) 3.6 L [place] % (Auto) 8.0 Eos % (Auto) 0.1 Baso % (Auto) 0.3 Absolute Neuts (auto) 11.3 H Absolute Lymphs (auto) 0.46 L Nucleated RBC % 0 Sodium 139 Potassium 3.8 Chloride 106 Carbon Dioxide 24.0 Anion Gap 9 BUN 40 H Creatinine 2.68 H Estim Creat Clear Calc 18.82 Est GFR (MDRD) Af Amer 29 L Est GFR (MDRD) Non-Af 24 L BUN/Creatinine Ratio 14.9 Glucose 119 H Calcium 9.2 Troponin I High Sens 58 B-Natriuretic Peptide 2318.0 H Radiography Chest X-Ray - ED: 1 View, Read by ED Physician, Read by Radiologist, Mediastinum, Bony Structures, Chronic Changes, Cardiomegaly and CHF Diagnostic Testing: Clinical Impression(s) from Imaging Studies Chest X-Ray 03/20/24 12:35 IMPRESSION: Cardiomegaly. Mild degree of CHF. Electronically Signed: Wilfred Milligan MD at 12:47 EDT Reading Location ID and State: [address] [place] [address] , Service support , Chest x-ray, portable, single view, interpreted by the myself and the radiologist. Shows cardiomegaly. Chronic changes. Mild cephalization consistent with CHF. Rhythm Strip Rhythm Strip: Sinus Rhythm Rate: 88 Ectopy: PVC(s) EKG Initial EKG: Attestation: I personally reviewed and interpreted this EKG as follows: Interpretation: Sinus Rhythm and No Acute Injury Pattern Comments: Sinus rhythm rate 88. Left bundle branch block. PVCs. Discharge Plan Dx/Rx/DC Orders Clinical Impression: Acute dyspnea, Chronic anticoagulation, Chronic kidney disease, Hypoxia, CHF (congestive heart failure), COPD (chronic obstructive pulmonary disease) with emphysema, History of atrial fibrillation Disposition Disposition: Acute Care [facility]
--- NOTE | 2024-03-20 12:24 | EKG12_ITS ---
Test Reason : SOB Blood Pressure : / mmHG Vent. Rate : 088 BPM Atrial Rate : 088 BPM P-R Int : 120 ms QRS Dur : 170 ms QT Int : 414 ms P-R-T Axes : 097 -61 094 degrees QTc Int : 500 ms Sinus rhythm with sinus arrhythmia with Premature ventricular complexes or Fusion complexes Left axis deviation Left bundle branch block Abnormal ECG Confirmed by MARCE KASPER, ADAM ([id number]), sports editor MADISON MONTOYA ([id number]) on 03/21/2024 10:19:14 AM Referred By: Confirmed By:ADAM ZHENG MD
--- NOTE | 2024-03-20 12:35 | RAD_ITS ---
STUDY: X-RAY CHEST REASON FOR EXAM: Male, 83 years old. Chest pain TECHNIQUE: Single AP portable view of the chest. COMPARISON: Comparison is made with prior study dated February 13, 2024. FINDINGS: EKG electrodes are seen. There is evidence of vascular congestion and mild degree of CHF. There is no demonstrated pleural abnormality. Cardiomegaly. Normal mediastinum and nasrin. Normal visualized pulmonary arteries. There is atherosclerotic calcification of the aortic arch with tortuosity. There is evidence of multilevel vertebroplasty of the thoracic and upper lumbar vertebrae. Normal visualized ribs, clavicles, and shoulders. There is no demonstrated abnormality of the visualized soft tissue structures of the upper abdomen. RAD/Chest 1 View (Portable) IMPRESSION: Cardiomegaly. Mild degree of CHF. Electronically Signed: Wilfred Milligan MD at 12:47 EDT ,
[2024-03-20] MEDS: Ipratropium/Albuterol Sulfate 3 ML AMPUL.NEB INHALATION ×2 (12:47→12:54)
[2024-03-20 12:48] LABS: Absolute Lymphocyte Count 0.46 X10^3/uL (0.83-4.51); Absolute Neutrophil Count 11.3 X10^3/uL (2.0-7.7); Basophil# 0.04 X10^3/uL; Basophil% 0.3 % (0-1); Eosinophil# 0.01 X10^3/uL; Eosinophils% 0.1 % (0-5); Hematocrit 34.8 % (40-54); Hemoglobin 11.8 g/dL (13.0-16.5); Lymphocyte # 0.46 X10^3/ul (0.83-4.51); Lymphocyte % 3.6 % (19-41); Mean Corp Hgb Conc 33.9 g/dL (32-36); Mean Corpuscular Hgb 37.3 pg (27.0-32.0); Mean Corpuscular Volume 110.1 fL (80-94); Mean Platelet Vol. 10.5 fl (6.2-12.0); Monocyte# 1.04 X10^3/uL; NRBC Flagged by Analyzer 0 % (0-5); Neutrophil # 11.25 X10^3/uL (2.7-7.7); POSITIVE DIFFERENTIAL YES; Platelet Count 217 K/mm3 (150-450); RBC Distribution Width CV 15.6 % (11.6-14.6); RBC Distribution Width SD 63.6 fl (35.1-43.9); Red Blood Count 3.16 M/mm3 (4.6-6.2); White Blood Count 12.9 K/mm3 (4.4-11.0)
[2024-03-20 13:05] LABS: Anion Gap 9 (5-15); BUN 40 mg/dL (7-18); BUN/Creat Ratio 14.9 RATIO (10-20); Calcium,Total 9.2 mg/dL (8.5-10.1); Chloride 106 mmol/L (98-107); Creatinine, Serum 2.68 mg/dL (0.70-1.30); EST Glomerular Filtration Rate 24 mL/min (>60); Est Glom Filt Rate - Afr Amer 29 mL/min (>60); Estimated Creatinine Clearance 18.82 ml/min; Glucose 119 mg/dL (74-106); Potassium 3.8 mmol/L (3.5-5.1); Sodium Level 139 mmol/L (136-145); Troponin-I HS 58 pg/mL (3.0-78.0)
[2024-03-20] MEDS: Ondansetron 4 MG/2 ML Vial IV (14:55)
--- NOTE | 2024-03-20 15:14 | HP.PCM.HOS_ITS ---
HPI - General General Date of Admission: 03/20/24 Date of Service: 03/20/24 Chief Complaint: Dyspnea, recurrent N/V. HPI Narrative The patient is an 83 y/o M w/ PMHx: COPD, Anxiety and Depression, Chronic BL hearing loss, Chronic AF/PA Flutter status post radiofrequency ablation, Hypothyroidism, Chronic back pain, Chronic anemia, HTN, HLD, ALVARADO per chart history to be on CPAP but patient denying, HFpEF, BPH, CAD s/p PCI, Valvular Heart Disease, recent discharge 03/18/24 following evaluation and treatment for intractable nausea and emesis with acute kidney injury superimposed on CKD documented as stage IIIb however chart also notes stage IV and GFR seems to be more consistent CKD stage IV with at that time restart of anticoagulation secondary to increase stroke risk with previous discontinuation secondary to falls but this was rediscussed and patient preference to resume eventually improving now represents to the [facility] ED on 03/20/24 with history of recurrent nausea and occasional dry heaves with significant shortness of breath worse with any exertion with a nonproductive cough reporting approximate 84% on room air not using chronic oxygen prompting eventual ED reevaluation to be cautious. Patient notes that he primarily has nausea and occasional dry heaving but he still has intermittently been tolerating both food and liquid diet but did have recurrent issues immediately upon his discharge and return to home. He does state occasional abdominal cramping but no diarrhea. He denies any recent peripheral edema but does acknowledge orthopnea. Workup in the ED included T97.4, heart rate 62, BP 144/85, respiratory rate 18, 99% on 3 L nasal cannula, CBC with WBC 12.9, 11.8, MCV 110.1, platelet 215 with left shift and lymphopenia, BMP with BUN/creatinine 40/2.68, GFR 24, glucose 119, troponin 58, BNP 2318, chest x-ray with cardiomegaly and mild degree of CHF, EKG with sinus rhythm with left bundle branch block with PVC with no acute evidence of ischemia however on monitor during evaluation does appear to be in atrial fibrillation. In the ED patient administered DuoNeb therapy x 2 as well as Zofran 4 mg IV x 1, lasix 40 mg IV x 1. From review of recent weight patient's upon most recent admission 03/16/2024 weight 130 pounds 15 ounces and upon current evaluation weight per ED 138 pounds 0.15 ounces. FORMERLY [facility], 1928–1983 Medical History Persistent atrial fibrillation Hearing loss, left Hearing loss, right Anxiety Chronic pain Rheumatoid arthritis COPD (chronic obstructive pulmonary disease) Irregular heart beat Hypertension Hypothyroidism Hiatal hernia Acute constipation Acute exacerbation of chronic low back pain Wears glasses Thyroid disease Ambulates with cane Arthritis History of renal disease Anemia High cholesterol Easy bruising Excessive bleeding History of leukemia Back pain Difficulty chewing History of diverticulitis Gastric reflux Sleep apnea History of pain when walking History of edema History of echocardiogram History of stress test Cardiology follow-up encounter History of heart attack Nausea and vomiting Chronic anemia Diarrhea Colitis Acute kidney injury Sleep apnea Acute kidney injury superimposed on chronic kidney disease On amiodarone therapy Elevated LFTs Thoracic aortic aneurysm (TAA) Chronic heart failure with preserved ejection fraction (HFpEF) Nonrheumatic mitral (valve) insufficiency Atypical atrial flutter (12/2020) Elevated liver enzymes Debility Dysphagia Osteoarthritis History of colon polyps Cancer Kidney stones Kidney disease Non-smoker CPAP (continuous positive airway pressure) dependence Atrial fibrillation Myocardial infarct Chronic renal insufficiency Acute gastrointestinal bleeding Chronic kidney disease Benign prostatic hyperplasia Stage 3b chronic kidney disease GI bleed (2012) Non-rheumatic tricuspid valve insufficiency Secondary pulmonary arterial hypertension Essential (primary) hypertension BPH (benign prostatic hyperplasia) History of hyperthyroidism Paroxysmal atrial fibrillation 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 heart disease of [place] coronary artery without angina pectoris HLD (hyperlipidemia) Home Medications ?Medication ?Instructions ?Recorded ?Last Taken ?Type tamsulosin 0.4 mg capsule 0.4 mg PO BID PROSTATE 11/18/21 03/19/24 History vitamin B complex 1 cap PO BID SUPPLEMENT 05/01/22 03/19/24 History ascorbic acid (vitamin C) 500 mg 500 mg PO BID SUPPLEMENT 07/20/22 03/19/24 History tablet finasteride 5 mg tablet 5 mg PO 1200 PROSTATE 08/05/22 03/19/24 History cholecalciferol (vitamin D3) 25 1,000 unit PO QHS SUPPLEMENT 02/19/23 03/19/24 History mcg (1,000 unit) capsule (Vitamin D3) loratadine 10 mg tablet (Claritin) 10 mg PO DAILY ALLERGIES 06/16/23 03/19/24 History empagliflozin 10 mg tablet 10 mg PO DAILY DIABTETES #0 tabs 07/22/23 03/19/24 Rx (Jardiance) nitroglycerin 0.4 mg sublingual 0.4 mg sublingual Q5M PRN 07/22/23 Unknown Rx tablet Cardiac/Chest Pain #0 tabs ranolazine 500 mg tablet,extended 500 mg PO BID CHEST PAIN #60 tabs 02/03/24 03/15/24 Rx release,12 hr clonidine HCl 0.1 mg tablet 0.05 - 0.1 mg PO DAILY PRN BLOOD 02/28/24 03/15/24 History PRESSURE isosorbide mononitrate 30 mg 30 mg PO DAILY CHEST PAIN 02/28/24 03/19/24 History tablet,extended release 24 hr magnesium chloride 64 mg 128 mg PO BID SUPPLEMENT 02/28/24 03/19/24 History (magnesium chloride) tablet,delayed release (Mag 64) metoprolol tartrate 25 mg tablet 12.5 mg PO BID BLOOD PRESSURE 02/28/24 03/19/24 History pantoprazole 40 mg tablet,delayed 40 mg PO BID GERD 02/28/24 03/19/24 History release potassium chloride 20 mEq 20 meq PO TID SUPPLEMENT 02/28/24 03/19/24 History tablet,extended release(part/cryst) trazodone 50 mg tablet 25 mg PO QHS INSOMNIA 02/28/24 03/19/24 History amiodarone 100 mg tablet 100 mg PO BID HEART #180 tabs 02/29/24 03/19/24 Rx hydralazine 50 mg tablet 50 mg PO 4X/DAY PRN BLOOD PRESSURE 03/16/24 03/15/24 History apixaban 5 mg tablet (Eliquis) 5 mg PO BID BLOOD THINNER #60 tabs 03/18/24 Unknown Rx diltiazem HCl 120 mg 120 mg PO DAILY BLOOD PRESSURE 03/20/24 Unknown History capsule,extended release 24 hr famotidine 20 mg tablet 20 mg PO BID GERD 03/20/24 Unknown History ferrous sulfate 325 mg (65 mg 325 mg PO QHS ANEMIA 03/20/24 03/19/24 History iron) tablet (Feosol) furosemide 40 mg tablet 80 mg PO BID EDEMA 03/20/24 03/19/24 History levothyroxine 50 mcg tablet 50 mcg PO DAILY THYROID 03/20/24 03/19/24 History Allergy/AdvReac Type Severity Reaction Status Date / Time diclofenac Allergy rash Verified 03/20/24 12:08 prednisone Allergy Rash Verified 03/20/24 12:08 Family History Father Cancer Prostate cancer Mother Hypertension Sister Hypertension Surgical History History of back surgery History of cardiac catheterization History of esophagogastroduodenoscopy (EGD) History of cardioversion (06/18/19) History of radiofrequency ablation procedure for cardiac arrhythmia (11/11/11) History of electrophysiologic study (08/08/00) History of left heart catheterization (07/17/12) History of hemorrhoidectomy History of Zenaida fundoplication History of coronary artery stent placement (08/04/00) History of hernia repair History of back surgery Social History household members: none Smoking Status: Never smoker alcohol intake: never substance use type: does not use caffeine: No ROS ROS Narrative Admission Review of Systems: CONSTITUTIONAL: No weight loss, fever, chills, +weakness or fatigue. HEENT: Eyes: No visual loss, blurred vision, double vision or yellow sclerae. Ears, Nose, Throat: No hearing loss, sneezing, congestion, runny nose or sore throat. SKIN: No rash or itching, lesions, wounds. CARDIOVASCULAR: + Orthopnea. No chest pain, chest pressure or chest discomfort, palpitations, edema, syncopal events. RESPIRATORY: + Shortness of breath, cough without marked sputum, occasional wheezing. No hemoptysis. GASTROINTESTINAL: + Nausea, intermittent dry heaves, abdominal cramping. No anorexia, diarrhea, melena, BRBPR. GENITOURINARY: No dysuria, frequency, urgency or retention. NEUROLOGICAL: No headache, dizziness, syncope, paralysis, ataxia, numbness or tingling in the extremities, focal weakness, change in bowel or bladder control, seizure. MUSCULOSKELETAL: + muscle, back pain, joint pain or stiffness. HEMATOLOGIC: + Chronic anemia, easy bleeding/bruising. LYMPHATICS: No enlarged nodes. No history of splenectomy. PSYCHIATRIC: + History of anxiety and depression. ENDOCRINOLOGIC: No reports of sweating, cold or heat intolerance. No polyuria or polydipsia. ALLERGIES: No history of asthma, hives, eczema or rhinitis. Vital Signs Vital Signs Vital Signs: 03/20/24 12:05 03/20/24 12:09 03/20/24 12:09 Temperature 97.4 F L 97.4 F L Temperature Source Oral Oral Pulse Rate 62 64 Respiratory Rate 18 19 H Respiratory Effort Normal Short of Breath Respiratory Depth Normal Respiratory Pattern Normal Blood Pressure 144/85 H 144/85 H Blood Pressure Mean 104 104 Pulse Ox 99 99 Oxygen Delivery Method Nasal Cannula Nasal Cannula Nasal Cannula Oxygen Flow Rate (L/min) 3 3 3 03/20/24 12:24 03/20/24 12:49 03/20/24 12:58 Temperature Temperature Source Pulse Rate 95 89 Respiratory Rate 20 H 20 H Respiratory Effort Respiratory Depth Respiratory Pattern Normal Normal Blood Pressure Blood Pressure Mean Pulse Ox Oxygen Delivery Method Nasal Cannula Oxygen Flow Rate (L/min) 3 03/20/24 13:08 03/20/24 14:04 Temperature 98.2 F Temperature Source Temporal Pulse Rate 97 100 Respiratory Rate 27 H 24 H Respiratory Effort Respiratory Depth Respiratory Pattern Blood Pressure 144/93 H 146/85 H Blood Pressure Mean 110 105 Pulse Ox 99 92 Oxygen Delivery Method Nasal Cannula Nasal Cannula Oxygen Flow Rate (L/min) 3 3 Weight Weight: 138 lb 0.15 oz Body Mass Index (BMI) 20.9 Physical Exam Narrative Physical Examination: General: Awake, alert, oriented x 3 and cooperative, seated upright in the ED bed, fatigued otherwise no acute distress, no active dry heaving. Skin: Normal color, normal turgor, no icterus, no cyanosis except occasional staged ecchymoses, abrasion. HEENT: AT/NC, EOMI, PERRLA, mildly dry MM, no carotid bruits, +JVD noted. Lungs: Diminished, greater bases, mildly increased respiratory rate but no distress, very distant Rales primarily bases, no rhonchi, occasional end expiratory wheeze. Heart: Irregular, rate controlled; no gallop, rub audible. Abdomen: Soft, NTTP, mildly hyperactive BS, no marked distention, no appreciated HSM. Extremities: No cyanosis, clubbing, or edema. Neurological: Patient awake, alert, oriented as noted, cognitive function intact; pupils equally reactive to light and accommodation, cranial nerves grossly normal, moving all 4 extremities, no focal deficits, strength moderately to severely globally decreased secondary to acute presentation. Psychiatric: Affect appears fatigued, mildly flat, no acute evidence of depressive or anxiety feelings but does have underlying history. Results Lab / Micro Data 03/20/24 12:24 03/20/24 12:24 Labs: Laboratory Results - last 24 hr 03/20/24 12:24: WBC 12.9 H, RBC 3.16 L, Hgb 11.8 L, Hct 34.8 L, MCV 110.1 H, MCH 37.3 H, MCHC 33.9, RDW Std Deviation 63.6 H, RDW Coeff of Pablo 15.6 H, Plt Count 217, MPV 10.5, Immature Gran % (Auto) 1.000 H, Neut % (Auto) 87.0 H, Lymph % (Auto) 3.6 L, [place] % (Auto) 8.0, Eos % (Auto) 0.1, Baso % (Auto) 0.3, Absolute Neuts (auto) 11.3 H, Absolute Lymphs (auto) 0.46 L, Nucleated RBC % 0, Sodium 139, Potassium 3.8, Chloride 106, Carbon Dioxide 24.0, Anion Gap 9, BUN 40 H, C reatinine 2.68 H, Estim Creat Clear Calc 18.82, Est GFR (MDRD) Af Amer 29 L, Est GFR (MDRD) Non-Af 24 L, BUN/Creatinine Ratio 14.9, Glucose 119 H, Calcium 9.2, Troponin I High Sens 58, B-Natriuretic Peptide 2318.0 H Rhythm Strip Rhythm Strip: Sinus Rhythm Rate: 88 Ectopy: PVC(s) Imaging Radiology Impression Chest X-Ray 03/20/24 12:35 IMPRESSION: Cardiomegaly. Mild degree of CHF. Electronically Signed: Wilfred Milligan MD at 12:47 EDT , Assessment & Plan Assessment/Plan (1) CHF (congestive heart failure): PLAN: Plan The patient is an 83 y/o M w/ PMHx: COPD, Anxiety and Depression, Chronic BL hearing loss, Chronic AF/PA Flutter status post radiofrequency ablation, Hypothyroidism, Chronic back pain, Chronic anemia, HTN, HLD, ALVARADO per chart history to be on CPAP but patient denying, HFpEF, BPH, CAD s/p PCI, Valvular Heart Disease, recent discharge 03/18/24 following evaluation and treatment for intractable nausea and emesis with acute kidney injury superimposed on CKD documented as stage IIIb however chart also notes stage IV and GFR seems to be more consistent CKD stage IV with at that time restart of anticoagulation secondary to increase stroke risk with previous discontinuation secondary to falls but this was rediscussed and patient preference to resume eventually improving now represents to the [facility] ED on 03/20/24 with history of recurrent nausea and occasional dry heaves with significant shortness of breath worse with any exertion with a nonproductive cough reporting approximate 84% on room air not using chronic oxygen prompting eventual ED reevaluation to be cautious. #1. Acute Hypoxia secondary to Acute Decompensated HFrEF complicated by underlying valvular heart disease concurrently, although some concern for possible aspiration given issues with recurrent nausea and emesis: Will admit to PCU, maintain on cardiac telemetry obtain cardiac enzyme series, obtain serial EKGs, continue IV lasix diuresis, monitor I/Os, maintain on intake restriction, continue medical therapy, obtain TSH and magnesium level. Most recent ECHO noted 07/18/2023 with moderate concentric LVH, moderately severe global LV systolic dysfunction, LVEF 35%, mild global RV systolic dysfunction, severely enlarged LA, moderately enlarged RA, severe posteriorly directed MVI, moderate to TVI, RVSP 77 mmHg, mild JOSÉ LUIS, mildly dilated aortic root, unable to assess diastolic dysfunction secondary to arrhythmia thus will request repeat. Given history of recent issues with nausea and emesis bouts will repeat chest x-ray in AM to assure no developing pneumonia to be cautious. #2. Recurrent intractable nausea and emesis, unclear etiology: Potentially related with #1, will maintain on clear liquids until improving, maintain on IV PPI, initiate antiemetic regimen and low threshold to trial Reglan also, may need to think about further gastric evaluation, full respiratory viral panel requested, procalcitonin requested, advance diet as clinically improving and monitor I's and O's. Recent evaluation included negative HIDA scan as noted GB US w/ distended gallbladder and thickened gallbladder wall. #3. Hypertension: Continue home regimen including clonidine, diltiazem, isosorbide, metoprolol, IV Lasix as noted, PRN hydralazine. #4. Hyperlipidemia: Per current list not on statin therapy, no allergy listed, clarifying, FLP in AM. #5. CAD: Status post PCI, will continue Eliquis, metoprolol, per current list on an ARIELLE inhibitor/ARB, also per current list not on statin therapy with no specific allergy listed, clarifying. #6. Chronic COPD: Will maintain on oxygen with wean as tolerated to room air, maintain on ATC budesonide therapy, PRN albuterol, HOB, IS parameters. #7. Chronic back pain: Encourage frequent positional changes, PT/OT/case management consultation for discharge planning, continue baclofen as needed regimen with hold for any sedation. #8. Chronic macrocytic anemia: Admission hemoglobin 11.8, MCV 110.1 prior baseline noted 1 hemoglobin 1.7 03/17/2024 and similar previous to this although it did transiently elevate, will repeat CBC in a.m. to further elucidate. #9. Chronic AF/PA Flutter: Status post prior radiofrequency ablation, will continue patient home metoprolol, amiodarone, diltiazem and recently reinitiated Eliquis regimen. Strongly encouraged continued aggressive fall precautions. #10. Chronic Kidney Disease Stage IV per GFR trending (chart prior noted CKD stage IIIb) w/ Recent FE now appears resolved: Admission BUN/Cr 40/2.68, GFR 24, baseline renal function 2.4-3.0, most recently prior to current presentation 03/18/2024 creatinine 2.99, repeat BMP in AM. #11. Hypothyroidism: We will continue patient on levothyroxine regimen, TSH pending. #12. Allergic rhinitis: We will continue patient on loratadine regimen. #13. Anxiety and depression: Will very cautiously continue patient trazodone as well as low-dose lorazepam however given advanced age if ongoing symptoms would be appropriate for consideration SSRI. #14. BPH: We will continue patient on Flomax and Finasteride regimen. #15. ALVARADO: Chart reported CPAP history, denies usage currently. #16. DVT prophylaxis: Will continue patient on Eliquis regimen. #17. CODE status: Patient LILI is his sister in [place] and living will is currenlty in place. Discussed CODE status at length including difference between FULL code, DNR-CCA and DNR-CC status. Following discussions about the differences in these status, requested DNR-CCA, no intubation. Advanced Care Planning Face to Face Time: 16 minutes. Charges/Coding Visit Charges Inpatient E&M: 37893 Init Hosp L3 Procedures Hospitalists Procedures: 16721 Advncd Care Plan 30 Min
[2024-03-20] MEDS: Furosemide 40 MG/4 ML Vial IV ×2 (15:29→17:37)
--- NOTE | 2024-03-20 15:37 | NURSING ---
PCU WHITE CHF, COPD, HYPOXIA, CKD, AFIB, ANTICOAGULATED
--- NOTE | 2024-03-20 16:22 | ECHOD_ITS ---
Reason For Study: CONGESTIVE HEART FAILURE Procedure This was a 2D Doppler, Color Flow transthoracic echocardiogram. Exam performed portable in patient room. Left Ventricle Normal LV size. Left ventricular systolic function is normal. The estimated ejection fraction is 53 %. No regional wall motion abnormalities noted. Right Ventricle Normal RV size. Normal systolic function. Atria The left atrium is severely enlarged. Normal right atrium. Mitral Valve Bileaflet diffuse mitral valve thickening. Mild-Moderate (1-2+) eccentric mitral valve insufficiency. Tricuspid Valve Normal tricuspid valve. Moderate (2+) tricuspid valve insufficiency. Pulmonary artery systolic pressure is 64 mmHg. Moderate pulmonary hypertension. Aortic Valve Trisinus/trileaflet aortic valve. Mild focal aortic valve thickening. Mild (1+) aortic valve insufficiency. Pulmonic Valve Normal pulmonic valve. Great Vessels Normal aortic root. Pericardium/Pleural No pericardial effusion. MMode/2D Measurements & Calculations LVIDd: 4.6 cm IVSd: 1.7 cm LVOT diam: 2.2 cm LVIDs: 3.2 cm LVPWd: 1.2 cm LVOT area: 3.6 cm2 RVDd: 5.3 cm FS: 30.8 % Ao root diam: 3.9 cm LAV(MOD-bp): 150.8 ml LVAd ap4: 24.1 cm2 LAV(MOD-bp) Indexed: 88.6 ml/m2 LVLd ap4: 6.8 cm LAV(MOD-sp2): 163.3 ml EDV(MOD-sp4): 71.0 ml LAV(MOD-sp4): 141.6 ml EDV(sp4-el): 72.5 ml LVAs ap4: 16.2 cm2 LVLs ap4: 6.4 cm ESV(MOD-sp4): 34.8 ml ESV(sp4-el): 34.8 ml EF(MOD-sp4): 50.9 % EF(sp4-el): 52.0 % LVAd ap2: 27.9 cm2 SV(MOD-sp4): 36.2 ml SV(MOD-sp2): 46.8 ml LVLd ap2: 7.5 cm EDV(MOD-sp2): 85.4 ml EDV(sp2-el): 88.2 ml LVAs ap2: 17.5 cm2 LVLs ap2: 6.7 cm ESV(MOD-sp2): 38.6 ml ESV(sp2-el): 38.7 ml EF(MOD-sp2): 54.8 % SV(sp4-el): 37.7 ml LA dimension(2D): 6.0 cm LA A4 area: 36.0 cm2 RA A4 area: 16.2 cm2 TAPSE: 1.9 cm Doppler Measurements & Calculations MV E max andrew: 78.8 cm/sec Lat Peak E' Andrew: 13.3 cm/sec Med Peak E' Andrew: 5.8 cm/sec E/E' lat: 5.9 E/E' med: 13.6 Ao V2 max: 113.1 cm/sec AI max andrew: 364.4 cm/sec LV V1 max: 69.6 cm/sec Ao max P.1 mmHg AI max P.1 mmHg LV V1 max P.9 mmHg Ao V2 mean: 90.4 cm/sec AI dec slope: 210.4 cm/sec2 Ao mean P.4 mmHg AI P1/2t: 507.2 msec Ao V2 VTI: 20.3 cm KATIE(V,D): 2.2 cm2 PA V2 max: 60.7 cm/sec TR max andrew: 388.4 cm/sec TR max P.3 mmHg ECHO/Echo Complete Interpretation Summary Normal LV size. Left ventricular systolic function is normal. The left atrium is severely enlarged. The estimated ejection fraction is 53 %. Mild-Moderate (1-2+) eccentric mitral valve insufficiency. Moderate pulmonary hypertension. Pulmonary artery systolic pressure is 64 mmHg. Ordering Physician: Janel Blount Referring Physician: César Chinchilla MD Performed By: Vita Grace RVT, RDCS and Student
[2024-03-20 16:55] LABS: Magnesium 2.3 mg/dL (1.6-2.6)
[2024-03-20] MEDS: hydrALAZINE 50 MG Tablet PO ×2 (17:36→22:14)
[2024-03-20] MEDS: proCHLORPERazine 10 MG/2 ML Vial 5 MG IV (17:46)
[2024-03-20] MEDS: Metoprolol Tartrate 25 MG Tablet 12.5 MG PO ×2 (17:47→22:13)
[2024-03-20] MEDS: dilTIAZem CD 120 MG Capsule PO (17:47)
[2024-03-20] MEDS: 0.9% Saline Lock 10 ML Syringe IV (17:47)
[2024-03-20] MEDS: Amiodarone 200 MG Tablet 100 MG PO ×2 (17:48→22:12)
[2024-03-20 17:57] LABS: Procalcitonin 0.15 ng/mL (0.00-0.09)
[2024-03-20 19:01] LABS: Troponin-I HS 71 pg/mL (3.0-78.0)
[2024-03-20] MEDS: Budesonide Respules 0.5 MG/2 ML AMPUL.NEB. INHALATION (20:48)
[2024-03-20] MEDS: Albuterol 2.5 MG/3 ML VIAL.NEB. INHALATION (20:48)
[2024-03-20] MEDS: APIXABAN 5 MG TABLET PO (22:14)
[2024-03-20] MEDS: Tamsulosin HCl 0.4 MG Capsule PO (22:15)
[2024-03-20] MEDS: traZODone 50 MG Tablet 25 MG PO (22:15)
[2024-03-20] MEDS: Pantoprazole Sodium 40 MG Tablet PO (22:16)
[2024-03-20] MEDS: Ferrous Sulfate 325 MG Tablet PO (22:17)
[2024-03-20] MEDS: Potassium Chloride Oral Tablet 20 MEQ PO (22:17)
[2024-03-20] MEDS: Famotidine 20 MG Tablet PO (22:18)
[2024-03-20] MEDS: Ranolazine 500 MG Tablet PO (22:18)
[2024-03-20] MEDS: Ascorbic Acid 500 MG Tablet PO (22:18)
[2024-03-21] VITALS (14 sets, daily range): BP systolic 95–122; BP diastolic 58–96; PULSE 80–92; RESP 16–20; TEMP 35.9–37; O2SAT 88–98; BMI 19.8
[2024-03-21] MEDS: Levothyroxine 50 MCG Tablet PO (05:42)
[2024-03-21] MEDS: Potassium Chloride Oral Tablet 20 MEQ PO ×3 (05:42→21:38)
--- NOTE | 2024-03-21 05:55 | RAD_ITS ---
INDICATION: Dyspnea, cough EXAMINATION/TECHNIQUE: X-RAY - XR Chest 1 View COMPARISON: 03/20/2024. FINDINGS: LINES/DEVICES: None. LUNGS: No consolidation or evidence of an effusion. No evidence of edema or a pneumothorax. MEDIASTINUM AND CARDIOVASCULAR STRUCTURES: Stable cardiomegaly. Mediastinum is unremarkable. BONES AND SOFT TISSUES: No acute abnormality. RAD/Chest 1 View (Portable) IMPRESSION: No evidence of acute cardiopulmonary disease. Electronically Signed: Phoenix Powell DO at 5:45 EDT ,
[2024-03-21 06:19] LABS: Absolute Lymphocyte Count 0.59 X10^3/uL (0.83-4.51); Absolute Neutrophil Count 7.4 X10^3/uL (2.0-7.7); Basophil# 0.06 X10^3/uL; Basophil% 0.7 % (0-1); Eosinophil# 0.08 X10^3/uL; Eosinophils% 0.9 % (0-5); Hematocrit 35.3 % (40-54); Hemoglobin 11.9 g/dL (13.0-16.5); Lymphocyte # 0.59 X10^3/ul (0.83-4.51); Lymphocyte % 6.5 % (19-41); Mean Corp Hgb Conc 33.7 g/dL (32-36); Mean Corpuscular Volume 112.8 fL (80-94); Mean Platelet Vol. 10.5 fl (6.2-12.0); Monocyte# 0.84 X10^3/uL; Monocyte% 9.3 % (0-10); NRBC Flagged by Analyzer 0 % (0-5); Neutrophil # 7.42 X10^3/uL (2.7-7.7); Neutrophil % 81.6 % (47-70); POSITIVE DIFFERENTIAL YES; POSITIVE MORPHOLOGY YES; Platelet Count 175 K/mm3 (150-450); RBC Distribution Width CV 15.9 % (11.6-14.6); RBC Distribution Width SD 65.6 fl (35.1-43.9); Red Blood Count 3.13 M/mm3 (4.6-6.2); White Blood Count 9.1 K/mm3 (4.4-11.0)
[2024-03-21 06:43] LABS: Differential Indicated SCAN CRITERIA MET
[2024-03-21 06:47] LABS: ALB/GLOB Ratio 0.8 RATIO (0.9-2.4); AST(SGOT) 20 U/L (15-37); Alanine Aminotransfer ALT/SGPT 17 U/L (16-61); Alkaline Phosphatase 59 U/L (45-117); Anion Gap 9 (5-15); BUN 41 mg/dL (7-18); BUN/Creat Ratio 15.7 RATIO (10-20); Calcium,Total 8.7 mg/dL (8.5-10.1); Chloride 106 mmol/L (98-107); Cholesterol 118 mg/dL (200); Creatinine, Serum 2.61 mg/dL (0.70-1.30); EST Glomerular Filtration Rate 25 mL/min (>60); Est Glom Filt Rate - Afr Amer 30 mL/min (>60); Estimated Creatinine Clearance 18.24 ml/min; Globulin 3.9 g/dL (2.2-4.2); Glucose 91 mg/dL (74-106); High Density Lipoprotein 58 mg/dL; Potassium 3.6 mmol/L (3.5-5.1); Protein, Total 6.9 g/dL (6.4-8.2); Sodium Level 139 mmol/L (136-145); Triglycerides 52 mg/dL; Very Low Density Lipoprotein 10 mg/dL (5-40)
[2024-03-21 08:27] LABS: Anisocytosis 1+
[2024-03-21] MEDS: dilTIAZem CD 120 MG Capsule PO (09:27)
[2024-03-21] MEDS: APIXABAN 5 MG TABLET PO ×2 (09:27→21:39)
[2024-03-21] MEDS: Amiodarone 200 MG Tablet 100 MG PO ×2 (09:28→21:36)
[2024-03-21] MEDS: Isosorbide Mononitrate 30 MG Tablet PO (09:29)
[2024-03-21] MEDS: hydrALAZINE 50 MG Tablet PO (09:29)
[2024-03-21] MEDS: Tamsulosin HCl 0.4 MG Capsule PO ×2 (09:29→21:38)
[2024-03-21] MEDS: Famotidine 20 MG Tablet PO (09:30)
[2024-03-21] MEDS: Pantoprazole Sodium 40 MG Tablet PO ×2 (09:31→21:37)
[2024-03-21] MEDS: Furosemide 40 MG/4 ML Vial IV (09:31)
[2024-03-21] MEDS: Ranolazine 500 MG Tablet PO ×2 (09:31→21:38)
[2024-03-21] MEDS: Metoprolol Tartrate 25 MG Tablet 12.5 MG PO ×2 (09:31→21:37)
[2024-03-21] MEDS: Ascorbic Acid 500 MG Tablet PO ×2 (11:47→21:36)
[2024-03-21] MEDS: Finasteride 5 MG Tablet PO (11:47)
[2024-03-21] MEDS: Loratadine 10 MG Tablet PO (11:47)
--- NOTE | 2024-03-21 14:29 | PN_ITS ---
Subjective Subjective Patient seen and examined. He had no active complaints. His breathing has improved. He was recently discharged after being managed for FE and on discharge his Lasix was stopped due to his kidney function. However patient started feeling short of breath and gaining weight and so was brought back into the ED and has been managed for CHF exacerbation. He feels much better. He is currently on room air. Objective Data Objective Data Vital Signs: Vital Signs Temp Pulse Resp BP Pulse Ox O2 Del Method O2 Flow Rate 97.6 F L 83 16 119/58 L 91 Room Air 1 03/21/24 14:00 03/21/24 14:19 03/21/24 14:00 03/21/24 14:19 03/21/24 14:00 03/21/24 14:00 03/21/24 11:22 Oxygen Flow Rate (L/min) 1 Oxygen Delivery Method Room Air Weight: 130 lb 4.691 oz Body Mass Index (BMI) 19.8 Intake & Output: Intake and Output for Last 24 Hours 03/19/24 03/20/24 03/21/24 23:59 23:59 23:59 Intake Total 600 / 600 450 / 450 Output Total 450 / 450 700 / 700 Balance 150 / 150 -250 / -250 Lab / Micro Data 03/21/24 05:41 03/21/24 05:41 Labs: Laboratory Results - last 24 hr 03/20/24 12:24: Magnesium 2.3 03/20/24 17:24: Procalcitonin 0.15 H 03/20/24 18:01: Troponin I High Sens 71 03/21/24 05:41: WBC 9.1, RBC 3.13 L, Hgb 11.9 L, Hct 35.3 L, MCV 112.8 H, MCH 38.0 H, MCHC 33.7, RDW Std Deviation 65.6 H, RDW Coeff of Pablo 15.9 H, Plt Count 175, MPV 10.5, Immature Gran % (Auto) 1.000 H, Neut % (Auto) 81.6 H, Lymph % (Auto) 6.5 L, [place] % (Auto) 9.3, Eos % (Auto) 0.9, Baso % (Auto) 0.7, Absolute Neuts (auto) 7.4, Absolute Lymphs (auto) 0.59 L, Nucleated RBC % 0, Differential Comment COMMENT, Anisocytosis 1+, Sodium 139, Potassium 3.6, Chloride 106, Carbon Dioxide 24.0, Anion Gap 9, BUN 41 H, Creatinine 2.61 H, Estim Creat Clear Calc 18.24, Est GFR (MDRD) Af Amer 30 L, Est GFR (MDRD) Non-Af 25 L, BUN/Creatinine Ratio 15.7, Glucose 91, Calcium 8.7, Total Bilirubin 2.20 H, AST 20, ALT 17, Alkaline Phosphatase 59, Total Protein 6.9, Albumin 3.0 L, Globulin 3.9, Albumin/Globulin Ratio 0.8 L, Triglycerides 52, Cholesterol 118, LDL Cholesterol 50, VLDL Cholesterol 10, HDL Cholesterol 58, TSH 2.50 Micro: Microbiology 03/20/24 17:16 Mucosa - Nose Respiratory Panel (PCR) - Final Radiography Diagnostic Testing: Radiology Impression Chest X-Ray 03/21/24 05:55 IMPRESSION: No evidence of acute cardiopulmonary disease. Electronically Signed: Phoenix Powell DO at 5:45 EDT , Rhythm Strip Rhythm Strip: Sinus Rhythm Rate: 88 Ectopy: PVC(s) Physical Exam Const alert, oriented x3, no apparent distress and well nourished General Appearance: cooperative HEENT normocephalic, head/scalp atraumatic, EAC's normal, moist oral mucous membranes and oropharynx normal Eyes PERRL and EOMs intact bilaterally Neck no lymphadenopathy and supple Lymph Lymphatic: no lymphadenopathy noted and no lymphedema noted Resp Resp Narrative: Mildly diminished breath sounds bibasilarly. No wheezes or crackles. On room air. Cardio regular rate, regular rhythm, S1 normal heart sound, S2 normal heart sound and no murmurs GI normal to inspection, nondistended, normoactive bowel sounds, soft to palpation, non-tender and non-distended Extremity normal capillary refill, no clubbing, cyanosis or edema and no calf tenderness General Extremity: no tenderness to palpation of joints or extremities Skin General Skin Exam: no breakdown Neuro CN's II-XII intact bilaterally, no focal motor deficits, no sensory deficits noted and deep tendon reflexes 2+ bilaterally Motor Exam: strength 5/5 throughout and general weakness Psych thought process normal Appearance: appropriate Assessment & Plan Assessment/Plan (1) CHF (congestive heart failure): PLAN: Plan #Acute hypoxia due to acute decompensated HFrEF * Currently on IV Lasix. Now on room air. * Had 2D echo June 2023 which showed EF of 35% with moderately severe global left ventricular systolic dysfunction and mild global right ventricular systolic dysfunction with severely enlarged left atrium and moderately enlarged right atrium and severe posteriorly directed mitral valve insufficiency. * Continue diuresis monitor intake and output. Breathing treatments bronchodilators. . #Hypertension: On clonidine, Cardizem, Imdur and metoprolol. #Hyperlipidemia: Not on statin. Unclear why. #CAD: S/p PCI. On Eliquis and metoprolol. #COPD: Not in exacerbation. Breathing treatments with bronchodilators. #Atrial fibrillation: Status post ablation. On metoprolol and amiodarone as well as Cardizem. On Eliquis. #CKD stage IV: Creatinine at baseline with it being 2.68 on admission. Baseline is around 2.43. Monitor creatinine. #Hypothyroidism: On Synthroid #Anxiety and depression: On trazodone #BPH: On Flomax and finasteride DVT prophylaxis: on eliquis Charges/Coding Visit Charges Inpatient E&M: 88814 Subs Hosp L2
--- NOTE | 2024-03-21 15:58 | CASEMGMT ---
Readmission Note: Index: 03/16-03/18/24. Dx: N/V Readmission: 03/20/24. Dx: HF Exacerbation, Hypoxia On index admission, the patient originally planned to DC to the [place] (SNF). However, the pt did well with PT and Physical therapy did not recommend continued physical therapy and the patient declined to go to a [facility] facility. The pt was then discharged home on Tuesday, 03/18 with a new Rx for Eliquis. The pt was advised to f/u with his PCP within 2 weeks. The pt did not qualify for home oxygen. The pt returned to [facility] on 03/20 with recurrent nausea and occasional dry heaves with shortness of breath and a nonproductive cough. The pt was admitted to PCU for further management. RADHA PORTER to pt room at this time. Pt states that he was able to get his Eliquis and take it as ordered. Pt states that he lives alone but felt safe and comfortable discharging home alone on that Tuesday. Pt states that he does not wear any type of oxygen at home or a PAP at night. Pt states that he would be willing to if he qualifies. A verbal list of local in-network DME companies was provided to the pt at this time. Pt states that he prefers [employer] for potential home oxygen needs. At this time, the pt states that he would prefer to DC home once he is medically ready but states that he would be willing to go to a SNF if needed. Pt states that he would be interested in HHC if he were to DC home. Pt denies wanting to see a local list of in-network HHC companies and states that he would prefer to go through [facility]. JESSICA. CM to follow therapy and pt progression in the hospital to decipher the safest DC plan moving forward.
[2024-03-21] MEDS: 0.9% Normal Saline (500mL Bag) 500 ML 999 ML IV (18:43)
[2024-03-21] MEDS: Ondansetron 4 MG/2 ML Vial IV (18:43)
[2024-03-21] MEDS: Acetaminophen 325 MG Tablet 650 MG PO (21:35)
[2024-03-21] MEDS: Budesonide Respules 0.5 MG/2 ML AMPUL.NEB. INHALATION (21:35)
[2024-03-21] MEDS: Ferrous Sulfate 325 MG Tablet PO (21:36)
[2024-03-21] MEDS: traZODone 50 MG Tablet 25 MG PO (21:38)
[2024-03-21] MEDS: MENTHOL 226.8 GM JAR 1 APPLIC TOPICAL (21:40)
[2024-03-22] VITALS (11 sets, daily range): BP systolic 119–137; BP diastolic 88–90; PULSE 63–82; RESP 14–18; TEMP 36.4–36.6; O2SAT 92–100; BMI 20.2
[2024-03-22] MEDS: MENTHOL 226.8 GM JAR 1 APPLIC TOPICAL (01:09)
[2024-03-22] MEDS: Levothyroxine 50 MCG Tablet PO (05:08)
[2024-03-22] MEDS: Potassium Chloride Oral Tablet 20 MEQ PO ×3 (05:08→21:32)
[2024-03-22 06:37] LABS: Absolute Lymphocyte Count 0.77 X10^3/uL (0.83-4.51); Absolute Neutrophil Count 7.5 X10^3/uL (2.0-7.7); Basophil# 0.04 X10^3/uL; Basophil% 0.4 % (0-1); Eosinophil# 0.16 X10^3/uL; Eosinophils% 1.7 % (0-5); Hematocrit 32.1 % (40-54); Hemoglobin 10.9 g/dL (13.0-16.5); Lymphocyte # 0.77 X10^3/ul (0.83-4.51); Lymphocyte % 8.2 % (19-41); Mean Corpuscular Hgb 37.8 pg (27.0-32.0); Mean Corpuscular Volume 111.5 fL (80-94); Mean Platelet Vol. 10.1 fl (6.2-12.0); Monocyte# 0.81 X10^3/uL; Monocyte% 8.7 % (0-10); NRBC Flagged by Analyzer 0 % (0-5); Neutrophil # 7.49 X10^3/uL (2.7-7.7); Neutrophil % 80.3 % (47-70); POSITIVE MORPHOLOGY YES; Platelet Count 201 K/mm3 (150-450); RBC Distribution Width CV 15.9 % (11.6-14.6); RBC Distribution Width SD 65.4 fl (35.1-43.9); Red Blood Count 2.88 M/mm3 (4.6-6.2); White Blood Count 9.3 K/mm3 (4.4-11.0)
[2024-03-22 07:07] LABS: Anion Gap 7 (5-15); BUN 47 mg/dL (7-18); BUN/Creat Ratio 14.3 RATIO (10-20); Calcium,Total 8.5 mg/dL (8.5-10.1); Chloride 108 mmol/L (98-107); Creatinine, Serum 3.28 mg/dL (0.70-1.30); EST Glomerular Filtration Rate 19 mL/min (>60); Est Glom Filt Rate - Afr Amer 23 mL/min (>60); Estimated Creatinine Clearance 14.78 ml/min; Glucose 101 mg/dL (74-106); Potassium 4.1 mmol/L (3.5-5.1); Sodium Level 140 mmol/L (136-145)
[2024-03-22] MEDS: Budesonide Respules 0.5 MG/2 ML AMPUL.NEB. INHALATION ×2 (07:12→19:56)
[2024-03-22 07:22] LABS: Anisocytosis 2+; Differential Indicated SCAN CRITERIA MET
[2024-03-22] MEDS: APIXABAN 5 MG TABLET PO (10:03)
[2024-03-22] MEDS: Famotidine 20 MG Tablet PO (10:04)
[2024-03-22] MEDS: Ascorbic Acid 500 MG Tablet PO ×2 (10:04→21:32)
[2024-03-22] MEDS: dilTIAZem CD 120 MG Capsule PO (10:04)
[2024-03-22] MEDS: Tamsulosin HCl 0.4 MG Capsule PO ×2 (10:04→21:32)
[2024-03-22] MEDS: Amiodarone 200 MG Tablet 100 MG PO ×2 (10:04→21:33)
[2024-03-22] MEDS: Pantoprazole Sodium 40 MG Tablet PO ×2 (10:04→21:33)
[2024-03-22] MEDS: Ranolazine 500 MG Tablet PO ×2 (10:05→21:33)
[2024-03-22] MEDS: Metoprolol Tartrate 25 MG Tablet 12.5 MG PO ×2 (10:05→21:34)
[2024-03-22] MEDS: Furosemide 80 MG Tablet PO ×2 (10:11→18:02)
--- NOTE | 2024-03-22 10:25 | CASEMGMT ---
RADHA PORTER NOTE: Reviewed therapy notes from yesterday. RADHA PORTER to room. Introduced self and role. Discussed discharge plan. Pt states he needs to get stronger before returning home, stating I need to get better to be able to take care of myself. He voices concern of going home before he is ready and having to come back to the hospital again. He is aware he will most likely be medically ready for discharge from the hospital by tomorrow. He states he does not think he'll be strong enough by tomorrow to go home. Discussed SNF and pt agreeable. He states he wants to go to [facility] as his 1st choice and does not want a list of other SNF options. [facility] AGUDELO, made aware. Ana SALCEDON RADHA PORTER
--- NOTE | 2024-03-22 11:06 | CASEMGMT ---
Per RN CM patient wants to go to [facility] TCU. SW made a referral to [facility]. [facility] RODRIGUES
--- NOTE | 2024-03-22 11:19 | PN_ITS ---
Subjective Subjective Patient seen and examined. He had no active complaints. He felt much better today. His BP was running low yesterday so his IV lasix was discontinued. Review of systems was otherwise negative. Objective Data Objective Data Vital Signs: Vital Signs Temp Pulse Resp BP Pulse Ox O2 Del Method O2 Flow Rate 97.8 F 63 16 130/88 H 93 Room Air 2 03/22/24 09:59 03/22/24 10:05 03/22/24 09:59 03/22/24 10:05 03/22/24 09:59 03/22/24 09:59 03/22/24 07:12 Oxygen Flow Rate (L/min) 2 Oxygen Delivery Method Room Air Weight: 132 lb 11.492 oz Body Mass Index (BMI) 20.2 Intake & Output: Intake and Output for Last 24 Hours 03/20/24 03/21/24 03/22/24 23:59 23:59 23:59 Intake Total 600 / 600 950 / 950 250 / 250 Output Total 450 / 450 900 / 900 150 / 150 Balance 150 / 150 50 / 50 100 / 100 Lab / Micro Data 03/22/24 05:51 03/22/24 05:51 Labs: Laboratory Results - last 24 hr 03/22/24 05:51: WBC 9.3, RBC 2.88 L, Hgb 10.9 L, Hct 32.1 L, MCV 111.5 H, MCH 37.8 H, MCHC 34.0, RDW Std Deviation 65.4 H, RDW Coeff of Pablo 15.9 H, Plt Count 201, MPV 10.1, Immature Gran % (Auto) 0.700, Neut % (Auto) 80.3 H, Lymph % (Auto) 8.2 L, [place] % (Auto) 8.7, Eos % (Auto) 1.7, Baso % (Auto) 0.4, Absolute Neuts (auto) 7.5, Absolute Lymphs (auto) 0.77 L, Nucleated RBC % 0, Anisocytosis 2+, Sodium 140, Potassium 4.1, Chloride 108 H, Carbon Dioxide 25.0, Anion Gap 7, BUN 47 H, Creatinine 3.28 H, Estim Creat Clear Calc 14.78, Est GFR (MDRD) Af Amer 23 L, Est GFR (MDRD) Non-Af 19 L, BUN/Creatinine Ratio 14.3, Glucose 101, Calcium 8.5 Micro: Microbiology 03/20/24 17:16 Mucosa - Nose Respiratory Panel (PCR) - Final Radiography Diagnostic Testing: Radiology Impression Echocardiogram 03/20/24 16:22 Interpretation Summary Normal LV size. Left ventricular systolic function is normal. The left atrium is severely enlarged. The estimated ejection fraction is 53 %. Mild-Moderate (1-2+) eccentric mitral valve insufficiency. Moderate pulmonary hypertension. Pulmonary artery systolic pressure is 64 mmHg. Ordering Physician: Janel Blount Referring Physician: César Chinchilla MD Performed By: Lesly MENDEZ RDCS, Vita and Student Rhythm Strip Rhythm Strip: Sinus Rhythm Rate: 88 Ectopy: PVC(s) Physical Exam Const alert, oriented x3, no apparent distress and well nourished General Appearance: cooperative HEENT normocephalic, head/scalp atraumatic, EAC's normal, moist oral mucous membranes and oropharynx normal Eyes PERRL and EOMs intact bilaterally Neck no lymphadenopathy and supple Lymph Lymphatic: no lymphadenopathy noted and no lymphedema noted Resp Resp Narrative: Mildly diminished breath sounds bibasilarly. No wheezes or crackles. On room air. Cardio regular rate, regular rhythm, S1 normal heart sound, S2 normal heart sound and no murmurs GI normal to inspection, nondistended, normoactive bowel sounds, soft to palpation, non-tender and non-distended Extremity normal capillary refill, no clubbing, cyanosis or edema and no calf tenderness General Extremity: no tenderness to palpation of joints or extremities Skin General Skin Exam: no breakdown Neuro CN's II-XII intact bilaterally, no focal motor deficits, no sensory deficits noted and deep tendon reflexes 2+ bilaterally Motor Exam: strength 5/5 throughout and general weakness Psych thought process normal Appearance: appropriate Assessment & Plan Assessment/Plan (1) CHF (congestive heart failure): PLAN: Plan #Acute hypoxia due to acute decompensated HFrEF * remains on room air * IV lasix discontinued yesterday due to BP running low * Had 2D echo June 2023 which showed EF of 35% with moderately severe global left ventricular systolic dysfunction and mild global right ventricular systolic dysfunction with severely enlarged left atrium and moderately enlarged right atrium and severe posteriorly directed mitral valve insufficiency. * resumed oral lasix today. Fluid restriction to 1500cc daily. . #Hypertension: On clonidine, Cardizem, Imdur and metoprolol. #Hyperlipidemia: Not on statin. Unclear why. #CAD: S/p PCI. On Eliquis and metoprolol. #COPD: Not in exacerbation. Breathing treatments with bronchodilators. #Atrial fibrillation: Status post ablation. On metoprolol and amiodarone as well as Cardizem. On Eliquis. #CKD stage IV:Cr today is 3.28 today. Will continue to monitor closely. #Hypothyroidism: On Synthroid #Anxiety and depression: On trazodone #BPH: On Flomax and finasteride DVT prophylaxis: on eliquis Disposition: will dc home tomorrow. Patient says he wants to stay one more day in order to set things up at home for his anticipated discharge tomorrow Charges/Coding Visit Charges Inpatient E&M: 74087 Subs Hosp L2
[2024-03-22] MEDS: Isosorbide Mononitrate 30 MG Tablet PO (13:08)
[2024-03-22] MEDS: Finasteride 5 MG Tablet PO (13:08)
--- NOTE | 2024-03-22 14:27 | CASEMGMT ---
TCU has accepted patient. SW let patient know this information. Plan: d/c to [facility]CU when medically ready. [facility] RODRIG[facility]
[2024-03-22] MEDS: 0.9% Saline Lock 10 ML Syringe IV (15:37)
[2024-03-22] MEDS: Ondansetron 4 MG/2 ML Vial IV (15:37)
--- NOTE | 2024-03-22 20:03 | EKG12_ITS ---
Test Reason : CONSEC. PVCs Blood Pressure : / mmHG Vent. Rate : 082 BPM Atrial Rate : 082 BPM P-R Int : 132 ms QRS Dur : 172 ms QT Int : 432 ms P-R-T Axes : 098 -62 090 degrees QTc Int : 504 ms Normal sinus rhythm Left axis deviation Left bundle branch block Abnormal ECG Confirmed by JOSE KASPER, JESSICA ([id number]), editor at large MIO EGAN ([id number]) on 03/27/2024 1:45:08 PM Referred By: Confirmed By:CAM GARCIA MD
--- NOTE | 2024-03-22 20:04 | EKG12_ITS ---
Test Reason : CONSEC. PVCs Blood Pressure : / mmHG Vent. Rate : 085 BPM Atrial Rate : 082 BPM P-R Int : 146 ms QRS Dur : 174 ms QT Int : 430 ms P-R-T Axes : 100 -63 089 degrees QTc Int : 511 ms Atrial Tach with second degree block Left axis deviation Left bundle branch block Abnormal ECG Confirmed by JOSE KASPER, JESSICA ([id number]), acquisition editor MIO EGAN ([id number]) on 03/27/2024 1:44:31 PM Referred By: Confirmed By:CAM GARCIA MD
[2024-03-22 21:32] LABS: Magnesium 2.1 mg/dL (1.6-2.6)
[2024-03-22] MEDS: APIXABAN 2.5 MG TABLET (WCH) PO (21:33)
[2024-03-22] MEDS: Ferrous Sulfate 325 MG Tablet PO (21:33)
[2024-03-22] MEDS: traZODone 50 MG Tablet 25 MG PO (21:33)
[2024-03-23] VITALS (11 sets, daily range): BP systolic 102–142; BP diastolic 64–117; PULSE 78–83; RESP 14–18; TEMP 35.7–36.6; O2SAT 93–97
[2024-03-23] MEDS: Potassium Chloride Oral Tablet 20 MEQ PO ×3 (05:30→22:33)
[2024-03-23] MEDS: Levothyroxine 50 MCG Tablet PO (05:30)
[2024-03-23 06:42] LABS: Absolute Lymphocyte Count 0.81 X10^3/uL (0.83-4.51); Absolute Neutrophil Count 7.6 X10^3/uL (2.0-7.7); Basophil# 0.06 X10^3/uL; Basophil% 0.6 % (0-1); Eosinophil# 0.16 X10^3/uL; Eosinophils% 1.7 % (0-5); Hematocrit 31.9 % (40-54); Hemoglobin 10.9 g/dL (13.0-16.5); Lymphocyte # 0.81 X10^3/ul (0.83-4.51); Lymphocyte % 8.5 % (19-41); Mean Corp Hgb Conc 34.2 g/dL (32-36); Mean Corpuscular Volume 111.1 fL (80-94); Mean Platelet Vol. 10.1 fl (6.2-12.0); Monocyte# 0.87 X10^3/uL; Monocyte% 9.1 % (0-10); NRBC Flagged by Analyzer 0 % (0-5); Neutrophil # 7.58 X10^3/uL (2.7-7.7); Neutrophil % 79.3 % (47-70); Platelet Count 224 K/mm3 (150-450); RBC Distribution Width CV 15.9 % (11.6-14.6); RBC Distribution Width SD 64.7 fl (35.1-43.9); Red Blood Count 2.87 M/mm3 (4.6-6.2); White Blood Count 9.6 K/mm3 (4.4-11.0)
[2024-03-23] MEDS: Budesonide Respules 0.5 MG/2 ML AMPUL.NEB. INHALATION ×2 (07:08→19:19)
[2024-03-23 07:37] LABS: Anion Gap 6 (5-15); BUN 51 mg/dL (7-18); BUN/Creat Ratio 15.6 RATIO (10-20); Calcium,Total 8.3 mg/dL (8.5-10.1); Chloride 107 mmol/L (98-107); Creatinine, Serum 3.26 mg/dL (0.70-1.30); EST Glomerular Filtration Rate 19 mL/min (>60); Est Glom Filt Rate - Afr Amer 24 mL/min (>60); Estimated Creatinine Clearance 14.73 ml/min; Glucose 100 mg/dL (74-106); Potassium 3.8 mmol/L (3.5-5.1); Sodium Level 139 mmol/L (136-145)
[2024-03-23] MEDS: proCHLORPERazine 10 MG/2 ML Vial 5 MG IV (09:13)
[2024-03-23] MEDS: 0.9% Saline Lock 10 ML Syringe IV (09:13)
[2024-03-23] MEDS: dilTIAZem CD 120 MG Capsule PO (09:16)
[2024-03-23] MEDS: Tamsulosin HCl 0.4 MG Capsule PO (09:16)
[2024-03-23] MEDS: Amiodarone 200 MG Tablet 100 MG PO ×2 (09:16→22:32)
[2024-03-23] MEDS: Loratadine 10 MG Tablet PO (09:16)
[2024-03-23] MEDS: Famotidine 20 MG Tablet PO (09:16)
[2024-03-23] MEDS: Pantoprazole Sodium 40 MG Tablet PO ×2 (09:16→22:33)
[2024-03-23] MEDS: Metoprolol Tartrate 25 MG Tablet 12.5 MG PO ×2 (09:17→22:33)
[2024-03-23] MEDS: Ascorbic Acid 500 MG Tablet PO ×2 (09:17→22:33)
[2024-03-23] MEDS: Isosorbide Mononitrate 30 MG Tablet PO (09:17)
[2024-03-23] MEDS: APIXABAN 2.5 MG TABLET (WCH) PO ×2 (09:17→22:33)
[2024-03-23] MEDS: Ranolazine 500 MG Tablet PO ×2 (09:17→22:33)
[2024-03-23] MEDS: Furosemide 80 MG Tablet PO (09:20)
--- NOTE | 2024-03-23 10:52 | PCM.PROGNOTE ---
Subjective Subjective Patient seen and examined this morning. He says he feels weak and dizzy. His BP did drop a bit yesterday and he was hydrated with IVF. Orthostatics this morning are negative. He denies any nausea, vomiting or diarrhea. Review of systems is otherwise negative. Objective Data Objective Data Vital Signs: Vital Signs Temp Pulse Resp BP Pulse Ox O2 Del Method O2 Flow Rate 98 F 79 14 134/90 H 94 Nasal Cannula 2 03/23/24 08:30 03/23/24 09:17 03/23/24 08:30 03/23/24 09:17 03/23/24 08:30 03/23/24 08:37 03/23/24 08:37 Oxygen Flow Rate (L/min) 2 Oxygen Delivery Method Nasal Cannula Weight: 131 lb 6.328 oz Body Mass Index (BMI) 20.0 Intake & Output: Intake and Output for Last 24 Hours 03/21/24 03/22/24 03/23/24 23:59 23:59 23:59 Intake Total 950 / 950 1345 / 1585 480 / 480 Output Total 900 / 900 150 / 150 Balance 50 / 50 1195 / 1435 480 / 480 Lab / Micro Data 03/23/24 06:19 03/23/24 06:19 Labs: Laboratory Results - last 24 hr 03/22/24 05:51: Magnesium 2.1 03/23/24 06:19: WBC 9.6, RBC 2.87 L, Hgb 10.9 L, Hct 31.9 L, MCV 111.1 H, MCH 38.0 H, MCHC 34.2, RDW Std Deviation 64.7 H, RDW Coeff of Pablo 15.9 H, Plt Count 224, MPV 10.1, Immature Gran % (Auto) 0.800, Neut % (Auto) 79.3 H, Lymph % (Auto) 8.5 L, [place] % (Auto) 9.1, Eos % (Auto) 1.7, Baso % (Auto) 0.6, Absolute Neuts (auto) 7.6, Absolute Lymphs (auto) 0.81 L, Nucleated RBC % 0, Sodium 139, Potassium 3.8, Chloride 107, Carbon Dioxide 26.0, Anion Gap 6, BUN 51 H, Creatinine 3.26 H, Estim Creat Clear Calc 14.73, Est GFR (MDRD) Af Amer 24 L, Est GFR (MDRD) Non-Af 19 L, BUN/Creatinine Ratio 15.6, Glucose 100, Calcium 8.3 L Micro: Microbiology 03/20/24 17:16 Mucosa - Nose Respiratory Panel (PCR) - Final Rhythm Strip Rhythm Strip: Sinus Rhythm Rate: 88 Ectopy: PVC(s) Physical Exam Const alert, oriented x3, no apparent distress and well nourished General Appearance: cooperative HEENT normocephalic, head/scalp atraumatic, EAC's normal, moist oral mucous membranes and oropharynx normal Eyes PERRL and EOMs intact bilaterally Neck no lymphadenopathy and supple Lymph Lymphatic: no lymphadenopathy noted and no lymphedema noted Resp Resp Narrative: Mildly diminished breath sounds bibasilarly. No wheezes or crackles. On room air. Cardio regular rate, regular rhythm, S1 normal heart sound, S2 normal heart sound and no murmurs GI normal to inspection, nondistended, normoactive bowel sounds, soft to palpation, non-tender and non-distended Extremity normal capillary refill, no clubbing, cyanosis or edema and no calf tenderness General Extremity: no tenderness to palpation of joints or extremities Skin General Skin Exam: no breakdown Neuro CN's II-XII intact bilaterally, no focal motor deficits, no sensory deficits noted and deep tendon reflexes 2+ bilaterally Motor Exam: strength 5/5 throughout and general weakness Psych thought process normal Appearance: appropriate Assessment & Plan Assessment/Plan (1) CHF (congestive heart failure): PLAN: Plan #Acute hypoxia due to acute decompensated HFrEF remains on room air IV lasix discontinued due to BP running low Had 2D echo June 2023 which showed EF of 35% with moderately severe global left ventricular systolic dysfunction and mild global right ventricular systolic dysfunction with severely enlarged left atrium and moderately enlarged right atrium and severe posteriorly directed mitral valve insufficiency. resumed oral lasix today. Fluid restriction to 1500cc daily. patient complaining of dizziness. Will review BP meds as he has had intermittent hypotension Lasix decreased to 80 mg daily. . #Hypertension: On clonidine, Cardizem, Imdur and metoprolol. #Hyperlipidemia: Not on statin. Unclear why. #CAD: S/p PCI. On Eliquis and metoprolol. #COPD: Not in exacerbation. Breathing treatments with bronchodilators. #Atrial fibrillation: Status post ablation. On metoprolol and amiodarone as well as Cardizem. On Eliquis. #CKD stage IV:Cr today is 3.26 today. Will continue to monitor closely. #Hypothyroidism: On Synthroid #Anxiety and depression: On trazodone #BPH: On Flomax and finasteride. Flomax dose decreased to 0.5 mg daily. DVT prophylaxis: on eliquis Charges/Coding Visit Charges Inpatient E&M: 63630 Subs Hosp L2
--- NOTE | 2024-03-23 11:31 | CASEMGMT ---
Social Work Pt to go to TCU when medically ready. As per physician, pt is not ready today. SW notified Tami in TCU and will place a green sheet on the chart in anticipation of weekend discharge. JACQUES Pereira
[2024-03-23] MEDS: Finasteride 5 MG Tablet PO (14:18)
[2024-03-23 15:41] LABS: Magnesium 2.3 mg/dL (1.6-2.6)
--- NOTE | 2024-03-23 17:55 | EX.PCM.CON.G ---
HPI Consult Data Date of Consult: 03/23/24 HPI Narrative Reason for Consultation: Dysphagia HPI Narrative: RICHIE HANSEN, is a 83 M who presents with worsening shortness of breath. He has a history of A-fib, [place], CHF, COPD reportedly on a blood thinner Eliquis. He was recently hospitalized hospitalization and discharged on Tuesday03/18/2024. He was complaining of nausea and dry heaves and shortness of breath. He is not typically not on oxygen at home. He reportedly discordancy was 84% on room air. He states he has a nonproductive cough. He complains of breath worse with any exertion with a nonproductive cough reporting approximate 84% on room air not using chronic oxygen prompting eventual ED reevaluation to be cautious. Patient notes that he primarily has nausea and occasional dry heaving but he still has intermittently been tolerating both food and liquid diet but did have recurrent issues immediately upon his discharge and return to home. He does state occasional abdominal cramping but no diarrhea. I was called because of recurrent esophageal dysphagia and nausea with some vomiting. He underwent an upper endoscopy by myself approximately 6 months ago. Findings: The lower third of the esophagus was significantly tortuous. One benign-appearing, intrinsic severe stenosis was found 37 to 39 cm from the incisors. The stenosis was traversed. A guidewire was placed and the scope was withdrawn. Dilation was performed with a Savary dilator with no resistance at 51 Fr. The dilation site was examined and showed mild improvement in luminal narrowing. Estimated blood loss was minimal. A large hiatal hernia was present. A single 9 mm sessile polyp with bleeding and stigmata of recent bleeding was found in the gastric body. The polyp was removed with a saline injection-lift technique using a hot snare. Resection and retrieval were complete. Verification of patient identification for the specimen was done. Estimated blood loss was minimal. The first portion of the duodenum was normal. Impression: - Tortuous esophagus. - Benign-appearing esophageal stenosis. Dilated. - Large hiatal hernia. - A single gastric polyp. Resected and retrieved. - Normal first portion of the duodenum. Recommendation: - [facility]. - Resume previous diet. - Continue present medications. - Await pathology results. 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 [facility] Medical History Persistent atrial fibrillation Hearing loss, left Hearing loss, right Anxiety Chronic pain Rheumatoid arthritis COPD (chronic obstructive pulmonary disease) Irregular heart beat Hypertension Hypothyroidism Hiatal hernia Acute constipation Acute exacerbation of chronic low back pain Wears glasses Thyroid disease Ambulates with cane Arthritis History of renal disease Anemia High cholesterol Easy bruising Excessive bleeding History of leukemia Back pain Difficulty chewing History of diverticulitis Gastric reflux Sleep apnea History of pain when walking History of edema History of echocardiogram History of stress test Cardiology follow-up encounter History of heart attack Nausea and vomiting Chronic anemia Diarrhea Colitis Acute kidney injury Sleep apnea Acute kidney injury superimposed on chronic kidney disease On amiodarone therapy Elevated LFTs Thoracic aortic aneurysm (TAA) Chronic heart failure with preserved ejection fraction (HFpEF) Nonrheumatic mitral (valve) insufficiency Atypical atrial flutter (12/2020) Elevated liver enzymes Debility Dysphagia Osteoarthritis History of colon polyps Cancer Kidney stones Kidney disease Non-smoker CPAP (continuous positive airway pressure) dependence Atrial fibrillation Myocardial infarct Chronic renal insufficiency Acute gastrointestinal bleeding Chronic kidney disease Benign prostatic hyperplasia Stage 3b chronic kidney disease GI bleed (2012) Non-rheumatic tricuspid valve insufficiency Secondary pulmonary arterial hypertension Essential (primary) hypertension BPH (benign prostatic hyperplasia) History of hyperthyroidism Paroxysmal atrial fibrillation 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 HLD (hyperlipidemia) Home Medications ?Medication ?Instructions ?Recorded ?Last Taken ?Type tamsulosin 0.4 mg capsule 0.4 mg PO BID PROSTATE 11/18/21 03/19/24 History vitamin B complex 1 cap PO BID SUPPLEMENT 05/01/22 03/19/24 History ascorbic acid (vitamin C) 500 mg 500 mg PO BID SUPPLEMENT 07/20/22 03/19/24 History tablet finasteride 5 mg tablet 5 mg PO 1200 PROSTATE 08/05/22 03/19/24 History cholecalciferol (vitamin D3) 25 1,000 unit PO QHS SUPPLEMENT 02/19/23 03/19/24 History mcg (1,000 unit) capsule (Vitamin D3) loratadine 10 mg tablet (Claritin) 10 mg PO DAILY ALLERGIES 06/16/23 03/19/24 History empagliflozin 10 mg tablet 10 mg PO DAILY DIABTETES #0 tabs 07/22/23 03/19/24 Rx (Jardiance) nitroglycerin 0.4 mg sublingual 0.4 mg sublingual Q5M PRN 07/22/23 Unknown Rx tablet Cardiac/Chest Pain #0 tabs ranolazine 500 mg tablet,extended 500 mg PO BID CHEST PAIN #60 tabs 02/03/24 03/15/24 Rx release,12 hr clonidine HCl 0.1 mg tablet 0.05 - 0.1 mg PO DAILY PRN BLOOD 02/28/24 03/15/24 History PRESSURE isosorbide mononitrate 30 mg 30 mg PO DAILY CHEST PAIN 02/28/24 03/19/24 History tablet,extended release 24 hr magnesium chloride 64 mg 128 mg PO BID SUPPLEMENT 02/28/24 03/19/24 History (magnesium chloride) tablet,delayed release (Mag 64) metoprolol tartrate 25 mg tablet 12.5 mg PO BID BLOOD PRESSURE 02/28/24 03/19/24 History pantoprazole 40 mg tablet,delayed 40 mg PO BID GERD 02/28/24 03/19/24 History release potassium chloride 20 mEq 20 meq PO TID SUPPLEMENT 02/28/24 03/19/24 History tablet,extended release(part/cryst) trazodone 50 mg tablet 25 mg PO QHS INSOMNIA 02/28/24 03/19/24 History amiodarone 100 mg tablet 100 mg PO BID HEART #180 tabs 02/29/24 03/19/24 Rx hydralazine 50 mg tablet 50 mg PO 4X/DAY PRN BLOOD PRESSURE 03/16/24 03/15/24 History apixaban 5 mg tablet (Eliquis) 5 mg PO BID BLOOD THINNER #60 tabs 03/18/24 Unknown Rx diltiazem HCl 120 mg 120 mg PO DAILY BLOOD PRESSURE 03/20/24 Unknown History capsule,extended release 24 hr famotidine 20 mg tablet 20 mg PO BID GERD 03/20/24 Unknown History ferrous sulfate 325 mg (65 mg 325 mg PO QHS ANEMIA 03/20/24 03/19/24 History iron) tablet (Feosol) furosemide 40 mg tablet 80 mg PO BID EDEMA 03/20/24 03/19/24 History levothyroxine 50 mcg tablet 50 mcg PO DAILY THYROID 03/20/24 03/19/24 History Allergy/AdvReac Type Severity Reaction Status Date / Time diclofenac Allergy rash Verified 03/20/24 12:08 prednisone Allergy Rash Verified 03/20/24 12:08 Family History Father Cancer Prostate cancer Mother Hypertension Sister Hypertension Surgical History History of back surgery History of cardiac catheterization History of esophagogastroduodenoscopy (EGD) History of cardioversion (06/18/19) History of radiofrequency ablation procedure for cardiac arrhythmia (11/11/11) History of electrophysiologic study (08/08/00) History of left heart catheterization (07/17/12) History of hemorrhoidectomy History of Zenaida fundoplication History of coronary artery stent placement (08/04/00) History of hernia repair History of back surgery Social History household members: none Smoking Status: Never smoker alcohol intake: never substance use type: does not use caffeine: No ROS ROS Narrative Admission Review of Systems: CONSTITUTIONAL: No weight loss, fever, chills, +weakness or fatigue. HEENT: Eyes: No visual loss, blurred vision, double vision or yellow sclerae. Ears, Nose, Throat: No hearing loss, sneezing, congestion, runny nose or sore throat. SKIN: No rash or itching, lesions, wounds. CARDIOVASCULAR: + Orthopnea. No chest pain, chest pressure or chest discomfort, palpitations, edema, syncopal events. RESPIRATORY: + Shortness of breath, cough without marked sputum, occasional wheezing. No hemoptysis. GASTROINTESTINAL: + Nausea, intermittent dry heaves, abdominal cramping. No anorexia, diarrhea, melena, BRBPR. GENITOURINARY: No dysuria, frequency, urgency or retention. NEUROLOGICAL: No headache, dizziness, syncope, paralysis, ataxia, numbness or tingling in the extremities, focal weakness, change in bowel or bladder control, seizure. MUSCULOSKELETAL: + muscle, back pain, joint pain or stiffness. HEMATOLOGIC: + Chronic anemia, easy bleeding/bruising. LYMPHATICS: No enlarged nodes. No history of splenectomy. PSYCHIATRIC: + History of anxiety and depression. ENDOCRINOLOGIC: No reports of sweating, cold or heat intolerance. No polyuria or polydipsia. ALLERGIES: No history of asthma, hives, eczema or rhinitis. Physical Exam Const alert, oriented x3, no apparent distress and well nourished General Appearance: cooperative HEENT normocephalic, head/scalp atraumatic, EAC's normal, moist oral mucous membranes and oropharynx normal Eyes PERRL and EOMs intact bilaterally Neck no lymphadenopathy and supple Lymph Lymphatic: no lymphadenopathy noted and no lymphedema noted Resp Resp Narrative: Mildly diminished breath sounds bibasilarly. No wheezes or crackles. On room air. Cardio regular rate, regular rhythm, S1 normal heart sound, S2 normal heart sound and no murmurs GI normal to inspection, nondistended, normoactive bowel sounds, soft to palpation, non-tender and non-distended Extremity normal capillary refill, no clubbing, cyanosis or edema and no calf tenderness General Extremity: no tenderness to palpation of joints or extremities Skin General Skin Exam: no breakdown Neuro CN's II-XII intact bilaterally, no focal motor deficits, no sensory deficits noted and deep tendon reflexes 2+ bilaterally Motor Exam: strength 5/5 throughout and general weakness Psych thought process normal Appearance: appropriate Lab / Micro Data 03/23/24 06:19 03/23/24 06:19 Labs: Laboratory Results - last 24 hr 03/22/24 05:51: Magnesium 2.1 03/23/24 06:19: WBC 9.6, RBC 2.87 L, Hgb 10.9 L, Hct 31.9 L, MCV 111.1 H, MCH 38.0 H, MCHC 34.2, RDW Std Deviation 64.7 H, RDW Coeff of Pablo 15.9 H, Plt Count 224, MPV 10.1, Immature Gran % (Auto) 0.800, Neut % (Auto) 79.3 H, Lymph % (Auto) 8.5 L, [place] % (Auto) 9.1, Eos % (Auto) 1.7, Baso % (Auto) 0.6, Absolute Neuts (auto) 7.6, Absolute Lymphs (auto) 0.81 L, Nucleated RBC % 0, Sodium 139, Potassium 3.8, Chloride 107, Carbon Dioxide 26.0, Anion Gap 6, BUN 51 H, Creatinine 3.26 H, Estim Creat Clear Calc 14.73, Est GFR (MDRD) Af Amer 24 L, Est GFR (MDRD) Non-Af 19 L, BUN/Creatinine Ratio 15.6, Glucose 100, Calcium 8.3 L, Magnesium 2.3 Rhythm Strip Rhythm Strip: Sinus Rhythm Rate: 88 Ectopy: PVC(s) Assessment & Plan Assessment/Plan (1) CHF (congestive heart failure): PLAN: Plan The patient is an 83 y/o M with multiple comorbidities presents back to the hospital with worsening shortness of breath and discovered to have hypoxia secondary to acute decompensated heart failure. He is also having nausea and vomiting with esophageal dysphagia. Recurrent intractable nausea and emesis, unclear etiology: I suspect this is from intermittent gastroparesis. Patient does not move around much and with his history of pulmonary hypertension, CHF, small bacterial overgrowth and a large hiatal hernia that we will contribute to a lot of his symptoms. Esophageal dysphagia: He is known to have esophageal dysmotility along with a hiatal hernia. With his nausea vomiting he could also have esophageal stricture. He should undergo an upper endoscopy to evaluate his upper GI tract for evaluation of his nausea vomiting to see if there is any sign of inflammation or scarring. He was explained alternatives, risk, benefits including not withstanding bleeding, infection, sepsis, perforation, need for discharge and . He will have an ASA of 3. The plan would be to do the procedure on 03/26/2024. Keep n.p.o. past midnight on 03/25/2024. Charges/Coding Visit Charges Inpatient E&M: 16305 Init Hosp L3
[2024-03-23] MEDS: Ferrous Sulfate 325 MG Tablet PO (22:33)
[2024-03-23] MEDS: traZODone 50 MG Tablet 25 MG PO (22:34)
[2024-03-23] MEDS: MENTHOL 226.8 GM JAR 1 APPLIC TOPICAL (22:34)
[2024-03-24] VITALS (10 sets, daily range): BP systolic 117–120; BP diastolic 74–87; PULSE 78–81; RESP 14–20; TEMP 36.5–36.7; O2SAT 93–98; BMI 20.7
[2024-03-24] MEDS: Potassium Chloride Oral Tablet 20 MEQ PO ×3 (06:48→21:51)
[2024-03-24] MEDS: Levothyroxine 50 MCG Tablet PO (06:48)
[2024-03-24] MEDS: Budesonide Respules 0.5 MG/2 ML AMPUL.NEB. INHALATION ×2 (07:10→19:28)
[2024-03-24 07:54] LABS: Absolute Lymphocyte Count 0.89 X10^3/uL (0.83-4.51); Absolute Neutrophil Count 7.4 X10^3/uL (2.0-7.7); Basophil# 0.07 X10^3/uL; Basophil% 0.7 % (0-1); Eosinophil# 0.17 X10^3/uL; Eosinophils% 1.8 % (0-5); Hematocrit 34.2 % (40-54); Hemoglobin 11.7 g/dL (13.0-16.5); Lymphocyte # 0.89 X10^3/ul (0.83-4.51); Lymphocyte % 9.3 % (19-41); Mean Corp Hgb Conc 34.2 g/dL (32-36); Mean Corpuscular Hgb 38.1 pg (27.0-32.0); Mean Corpuscular Volume 111.4 fL (80-94); Mean Platelet Vol. 10.1 fl (6.2-12.0); Monocyte# 0.92 X10^3/uL; Monocyte% 9.7 % (0-10); NRBC Flagged by Analyzer 0 % (0-5); Neutrophil # 7.39 X10^3/uL (2.7-7.7); Neutrophil % 77.6 % (47-70); Platelet Count 260 K/mm3 (150-450); RBC Distribution Width CV 15.7 % (11.6-14.6); RBC Distribution Width SD 63.9 fl (35.1-43.9); Red Blood Count 3.07 M/mm3 (4.6-6.2); White Blood Count 9.5 K/mm3 (4.4-11.0)
[2024-03-24 08:14] LABS: Anion Gap 8 (5-15); BUN 56 mg/dL (7-18); BUN/Creat Ratio 17.3 RATIO (10-20); Calcium,Total 8.8 mg/dL (8.5-10.1); Chloride 106 mmol/L (98-107); Creatinine, Serum 3.23 mg/dL (0.70-1.30); EST Glomerular Filtration Rate 20 mL/min (>60); Est Glom Filt Rate - Afr Amer 24 mL/min (>60); Estimated Creatinine Clearance 15.44 ml/min; Glucose 92 mg/dL (74-106); Potassium 4.1 mmol/L (3.5-5.1); Sodium Level 141 mmol/L (136-145)
[2024-03-24] MEDS: Amiodarone 200 MG Tablet 100 MG PO ×2 (08:18→21:52)
[2024-03-24] MEDS: Isosorbide Mononitrate 30 MG Tablet PO (08:19)
[2024-03-24] MEDS: Ascorbic Acid 500 MG Tablet PO ×2 (08:19→21:50)
[2024-03-24] MEDS: Furosemide 80 MG Tablet PO (08:19)
[2024-03-24] MEDS: Famotidine 20 MG Tablet PO (08:19)
[2024-03-24] MEDS: Pantoprazole Sodium 40 MG Tablet PO ×2 (08:19→21:51)
[2024-03-24] MEDS: dilTIAZem CD 120 MG Capsule PO (08:19)
[2024-03-24] MEDS: APIXABAN 2.5 MG TABLET (WCH) PO (08:19)
[2024-03-24] MEDS: Ranolazine 500 MG Tablet PO ×2 (08:19→21:52)
[2024-03-24] MEDS: Metoprolol Tartrate 25 MG Tablet 12.5 MG PO ×2 (08:20→21:50)
--- NOTE | 2024-03-24 10:19 | CASEMGMT ---
Social Work- SW met with pt to confirm advanced directives. Pt states that he has directives naming Neelima Espinal, [id number], as agent. Pt advised that documents were not on chart. LEEANN Levy
--- NOTE | 2024-03-24 10:38 | PCM.TXEXTCAR ---
Diet Diet Order/Speech Therapy: 03/21/24 09:44 Diet: Cardiac - Heart Healthy Food consistency:: Regular Liquid Consistency:: Regular/Thin Dietary Modifications:: Sodium Restricted Type of Dietary Supplement:: Magic Cup Dessert Fluid restriction:: 1500 mL Diet Comments: magic cup w/ lunch and dinner Routine Orders/Code Status Enema Type: Fleetz Enema Frequency: Daily PRN Suppository Frequency: Daily PRN O2 Frequency: PRN Keep PO Greater than or Equal to (%): 90 Therapies Weight Bearing: Weight bearing as tolerated Physical Therapy: Eval and Treat Occupational Therapy: Eval and Treat Problem/Diagnosis (1) CHF (congestive heart failure): Status: Acute Code(s): I50.9 - Heart failure, unspecified Plan #Acute hypoxia due to acute decompensated HFrEF remains on room air IV lasix discontinued due to BP running low Had 2D echo June 2023 which showed EF of 35% with moderately severe global left ventricular systolic dysfunction and mild global right ventricular systolic dysfunction with severely enlarged left atrium and moderately enlarged right atrium and severe posteriorly directed mitral valve insufficiency. resumed oral lasix today. Fluid restriction to 1500cc daily. patient complaining of dizziness. Will review BP meds as he has had intermittent hypotension Lasix decreased to 80 mg daily. . #Hypertension: On clonidine, Cardizem, Imdur and metoprolol. #Hyperlipidemia: Not on statin. Unclear why. #CAD: S/p PCI. On Eliquis and metoprolol. #COPD: Not in exacerbation. Breathing treatments with bronchodilators. #Atrial fibrillation: Status post ablation. On metoprolol and amiodarone as well as Cardizem. On Eliquis. #CKD stage IV:Cr today is 3.26 today. Will continue to monitor closely. #Hypothyroidism: On Synthroid #Anxiety and depression: On trazodone #BPH: On Flomax and finasteride. Flomax dose decreased to 0.5 mg daily. DVT prophylaxis: on eliquis Allergies/Procedures Done in Hospital Allergies diclofenac Allergy (Verified 03/20/24 12:08) rash prednisone Allergy (Verified 03/20/24 12:08) Rash Type of Care/Length of Stay Estimated LOS: Convalescent Care Less Than 30 days Type of Care Needed: Skilled Rehab Potential: Fair Prognosis: Fair Additional Orders/Day of Discharge Day of Discharge: 03/24/24 Dietary and Speech Recommendations Dietitian Recommendations/Changes: Continue cardiac/sodium-restricted diet with 1500mL/day FR. Will add magic cup with lunch and dinner for tolerance. Additional ONS as needed if PO fails at meals. Discharge Plan Admission Admit Date/Time: 03/20/24 15:25 Primary Reason for Your Visit: acute on chronic heart failure Attending Provider: Adela Farley Primary Care Provider: César Chinchilla Consulting Providers: Janel Blount Instructions Patient Instructions: Coping with Heart Failure Discharge Orders/Prescriptions Prescriptions: New Eliquis 2.5 mg tablet 2.5 mg PO BID Qty: 60 2RF furosemide 80 mg Tablet 80 mg PO DAILY Qty: 40 2RF Continued tamsulosin 0.4 mg capsule 0.4 mg PO BID ascorbic acid (vitamin C) 500 mg tablet 500 mg PO BID finasteride 5 mg tablet 5 mg PO 1200 clonidine HCl 0.1 mg tablet 0.05 - 0.1 mg PO DAILY PRN (Reason: BLOOD PRESSURE ) Patient Comments: RX NOT ON [employer] PACKAGING LIST ( OF 03/20/24). RX WAS CONTINUED BY JAMES HERRERA FROM [facility] RECENT ADMISSION TO THE HOSPITAL trazodone 50 mg tablet 25 mg PO QHS metoprolol tartrate 25 mg tablet 12.5 mg PO BID magnesium chloride [Mag 64] 64 mg tablet,delayed release (DR/EC) 128 mg PO BID pantoprazole 40 mg tablet,delayed release (DR/EC) 40 mg PO BID isosorbide mononitrate 30 mg tablet extended release 24 hr 30 mg PO DAILY potassium chloride 20 mEq tablet,ER particles/crystals 20 meq PO TID vitamin B complex Capsule 1 cap PO BID cholecalciferol (vitamin D3) [Vitamin D3] 25 mcg (1,000 unit) Capsule 1,000 unit PO QHS nitroglycerin 0.4 mg Tablet, Sublingual 0.4 mg sublingual Q5M PRN (Reason: Cardiac/Chest Pain) Qty: 0 0RF Jardiance 10 mg Tablet 10 mg PO DAILY Qty: 0 0RF loratadine [Claritin] 10 mg tablet 10 mg PO DAILY hydralazine 50 mg Tablet 50 mg PO 4X/DAY PRN (Reason: BLOOD PRESSURE ) Patient Comments: RX NOT ON [employer] PACKAGING LIST ( OF 03/20/24). RX WAS CONTINUED BY JAMES HERRERA FROM [facility] M[facility] RECENT ADMISSION TO THE HOSP[facility] famotidine 20 mg tablet 20 mg PO BID Patient Comments: RX WAS DISCONTINUED BY JAMES HERRERA FROM PTS MOST RECENT ADMISSION TO [facility]. [facility] HAS IT ON THEIR BUBBLE PACKAGING LIST ( OF 03/20/24) diltiazem HCl 120 mg capsule,extended release 24hr 120 mg PO DAILY Patient Comments: RX NOT ON [facility] BUBBLE PACKAGING LIST ( OF 03/20/24). RX WAS CONTINUED BY JAMES HERRERA FROM PTS MOST RECENT ADMISSION TO THE HOSPITAL ferrous sulfate [Feosol] 325 mg (65 mg iron) tablet 325 mg PO QHS levothyroxine 50 mcg Tablet 50 mcg PO DAILY ranolazine 500 mg tablet extended release 12 hr 500 mg PO BID Qty: 60 11RF Patient Comments: RX NOT ON [facility] BUBBLE PACKAGING LIST ( OF 03/20/24). RX WAS CONTINUED BY JAMES HERRERA FROM [facility] MOST RECENT ADMISSION TO THE HOSPITAL amiodarone 100 mg tablet 100 mg PO BID Qty: 180 3RF Discontinued Eliquis 5 mg tablet 5 mg PO BID Qty: 60 0RF Patient Comments: NEW RX PRESCRIBED BY JAMES HERRERA ON 03/18/24 furosemide 40 mg tablet 80 mg PO BID Referrals / Follow Up: Tremaine Molina MD [Med Staff - Active Staff] - Within 2 Weeks César Chinchilla MD [Primary Care Provider] - Within 2 Weeks Disposition Disposition (needs filled in before D/C Order can be placed): Senior Living Facility
--- NOTE | 2024-03-24 10:39 | PCM.DC.SUM ---
Providers Date of Admission: 03/20/24 Primary Care Physician: Dr. César Chinchilla MD Consultations 03/23/24 13:26 Consult: Gastroenterology Routine Consulting Provider: [facility] Reason for Consult: esophageal stricture EMERGENT Consult: No MD Notified: Yes Date Notified: 03/23/24 Time Notified: 13:26 Method of Notification: Verbal Reason For Visit: HF EXAC, HYPOXIA Diagnosis Discharge Diagnosis (1) CHF (congestive heart failure): Status: Acute Code(s): I50.9 - Heart failure, unspecified Plan #Acute hypoxia due to acute decompensated HFrEF remains on room air IV lasix discontinued due to BP running low Had 2D echo June 2023 which showed EF of 35% with moderately severe global left ventricular systolic dysfunction and mild global right ventricular systolic dysfunction with severely enlarged left atrium and moderately enlarged right atrium and severe posteriorly directed mitral valve insufficiency. resumed oral lasix today. Fluid restriction to 1500cc daily. patient complaining of dizziness. Will review BP meds as he has had intermittent hypotension Lasix decreased to 80 mg daily. . #Hypertension: On clonidine, Cardizem, Imdur and metoprolol. #Hyperlipidemia: Not on statin. Unclear why. #CAD: S/p PCI. On Eliquis and metoprolol. #COPD: Not in exacerbation. Breathing treatments with bronchodilators. #Atrial fibrillation: Status post ablation. On metoprolol and amiodarone as well as Cardizem. On Eliquis. #CKD stage IV:Cr today is 3.26 today. Will continue to monitor closely. #Hypothyroidism: On Synthroid #Anxiety and depression: On trazodone #BPH: On Flomax and finasteride. Flomax dose decreased to 0.5 mg daily. DVT prophylaxis: on eliquis Medications at Discharge Home Medications tamsulosin 0.4 mg capsule 0.4 mg PO BID PROSTATE 11/18/21 vitamin B complex 1 cap PO BID SUPPLEMENT 05/01/22 ascorbic acid (vitamin C) 500 mg tablet 500 mg PO BID SUPPLEMENT 07/20/22 finasteride 5 mg tablet 5 mg PO 1200 PROSTATE 08/05/22 cholecalciferol (vitamin D3) 25 mcg (1,000 unit) capsule (Vitamin D3) 1,000 unit PO QHS SUPPLEMENT 02/19/23 loratadine 10 mg tablet (Claritin) 10 mg PO DAILY ALLERGIES 06/16/23 empagliflozin 10 mg tablet (Jardiance) 10 mg PO DAILY DIABTETES #0 tabs 07/22/23 nitroglycerin 0.4 mg sublingual tablet 0.4 mg sublingual Q5M PRN Cardiac/Chest Pain #0 tabs 07/22/23 ranolazine 500 mg tablet,extended release,12 hr 500 mg PO BID CHEST PAIN #60 tabs 02/03/24 clonidine HCl 0.1 mg tablet 0.05 - 0.1 mg PO DAILY PRN BLOOD PRESSURE 02/28/24 isosorbide mononitrate 30 mg tablet,extended release 24 hr 30 mg PO DAILY CHEST PAIN 02/28/24 magnesium chloride 64 mg (magnesium chloride) tablet,delayed release (Mag 64) 128 mg PO BID SUPPLEMENT 02/28/24 metoprolol tartrate 25 mg tablet 12.5 mg PO BID BLOOD PRESSURE 02/28/24 pantoprazole 40 mg tablet,delayed release 40 mg PO BID GERD 02/28/24 potassium chloride 20 mEq tablet,extended release(part/cryst) 20 meq PO TID SUPPLEMENT 02/28/24 trazodone 50 mg tablet 25 mg PO QHS INSOMNIA 02/28/24 amiodarone 100 mg tablet 100 mg PO BID HEART #180 tabs 02/29/24 hydralazine 50 mg tablet 50 mg PO 4X/DAY PRN BLOOD PRESSURE 03/16/24 diltiazem HCl 120 mg capsule,extended release 24 hr 120 mg PO DAILY BLOOD PRESSURE 03/20/24 famotidine 20 mg tablet 20 mg PO BID GERD 03/20/24 ferrous sulfate 325 mg (65 mg iron) tablet (Feosol) 325 mg PO QHS ANEMIA 03/20/24 levothyroxine 50 mcg tablet 50 mcg PO DAILY THYROID 03/20/24 apixaban 2.5 mg tablet (Eliquis) 2.5 mg PO BID #60 tabs 03/24/24 furosemide 80 mg tablet 80 mg PO DAILY #40 tabs 03/24/24 Weight / BMI Weight Weight: 136 lb 7.458 oz Body Mass Index (BMI) 20.7 ABG / Lab / Microbiology Data 03/24/24 06:35 03/24/24 06:35 Laboratory: Laboratory Results - last 24 hr 03/23/24 06:19: Magnesium 2.3 03/24/24 06:35: WBC 9.5, RBC 3.07 L, Hgb 11.7 L, Hct 34.2 L, MCV 111.4 H, MCH 38.1 H, MCHC 34.2, RDW Std Deviation 63.9 H, RDW Coeff of Pablo 15.7 H, Plt Count 260, MPV 10.1, Immature Gran % (Auto) 0.900, Neut % (Auto) 77.6 H, Lymph % (Auto) 9.3 L, [place] % (Auto) 9.7, Eos % (Auto) 1.8, Baso % (Auto) 0.7, Absolute Neuts (auto) 7.4, Absolute Lymphs (auto) 0.89, Nucleated RBC % 0, Sodium 141, Potassium 4.1, Chloride 106, Carbon Dioxide 27.0, Anion Gap 8, BUN 56 H, Creatinine 3.23 H, Estim Creat Clear Calc 15.44, Est GFR (MDRD) Af Amer 24 L, Est GFR (MDRD) Non-Af 20 L, BUN/Creatinine Ratio 17.3, Glucose 92, Calcium 8.8 Microbiology: Microbiology 03/20/24 17:16 Mucosa - Nose Respiratory Panel (PCR) - Final Meaningful Use Info Ischemic Stroke Statin Dosing Therapy Reference: STATIN DOSE THERAPY REFERENCE: * Patients > 75 years receive moderate or high dose statin therapy. * Patients 75 years or YOUNGER should receive HIGH intensity statin dose unless contraindicated. You will be required to document reason for non-treatment if statin daily dose does not meet guidelines. HIGH DOSE STATIN THERAPY DAILY Atorvastatin > than or = to 40 mg Rosuvastatin > than or = to 20 mg Amlodipine + Atorvastatin > than or = to 2.5/40 mg Ezetimibe + Simvastatin 10/80 mg Simvastatin 80mg Discharge Plan Admission Admit Date/Time: 03/20/24 15:25 Primary Reason for Your Visit: acute on chronic heart failure Attending Provider: Adela Farley Primary Care Provider: César Chinchilla Consulting Providers: Janel Blount Instructions Patient Instructions: Coping with Heart Failure Discharge Orders/Prescriptions Prescriptions: New Eliquis 2.5 mg tablet 2.5 mg PO BID Qty: 60 2RF furosemide 80 mg Tablet 80 mg PO DAILY Qty: 40 2RF Continued tamsulosin 0.4 mg capsule 0.4 mg PO BID ascorbic acid (vitamin C) 500 mg tablet 500 mg PO BID finasteride 5 mg tablet 5 mg PO 1200 clonidine HCl 0.1 mg tablet 0.05 - 0.1 mg PO DAILY PRN (Reason: BLOOD PRESSURE ) Patient Comments: RX NOT ON [facility] BUBBLE PACKAGING LIST ( OF 03/20/24). RX WAS CONTINUED BY JAMES HERRERA FROM [facility] trazodone 50 mg tablet 25 mg PO QHS metoprolol tartrate 25 mg tablet 12.5 mg PO BID magnesium chloride [Mag 64] 64 mg tablet,delayed release (DR/EC) 128 mg PO BID pantoprazole 40 mg tablet,delayed release (DR/EC) 40 mg PO BID isosorbide mononitrate 30 mg tablet extended release 24 hr 30 mg PO DAILY potassium chloride 20 mEq tablet,ER particles/crystals 20 meq PO TID vitamin B complex Capsule 1 cap PO BID cholecalciferol (vitamin D3) [Vitamin D3] 25 mcg (1,000 unit) Capsule 1,000 unit PO QHS nitroglycerin 0.4 mg Tablet, Sublingual 0.4 mg sublingual Q5M PRN (Reason: Cardiac/Chest Pain) Qty: 0 0RF Jardiance 10 mg Tablet 10 mg PO DAILY Qty: 0 0RF loratadine [Claritin] 10 mg tablet 10 mg PO DAILY hydralazine 50 mg Tablet 50 mg PO 4X/DAY PRN (Reason: BLOOD PRESSURE ) Patient Comments: RX NOT ON [facility] BUBBLE PACKAGING LIST ( OF 03/20/24). RX WAS CONTINUED BY JAMES HERRERA FROM [facility] TO [facility] famotidine 20 mg tablet 20 mg PO BID Patient Comments: RX WAS DISCONTINUED BY JAMES HERRERA FROM [facility] M[facility] RECENT ADMISSION TO [facility]. [facility] HAS IT ON THEIR BUBBLE PACKAGING LIST ( OF 03/20/24) diltiazem HCl 120 mg capsule,extended release 24hr 120 mg PO DAILY Patient Comments: RX NOT ON [facility] BUBBLE PACKAGING LIST ( OF 03/20/24). RX WAS CONTINUED BY JAMES HERRERA FROM [facility]MISSION TO THE [facility] ferrous sulfate [Feosol] 325 mg (65 mg iron) tablet 325 mg PO QHS levothyroxine 50 mcg Tablet 50 mcg PO DAILY ranolazine 500 mg tablet extended release 12 hr 500 mg PO BID Qty: 60 11RF Patient Comments: RX NOT ON [facility] BUBBLE PACKAGING LIST ( OF 03/20/24). RX WAS CONTINUED BY JAMES HERRERA FROM [facility]MISS[facility] TO [facility] amiodarone 100 mg tablet 100 mg PO BID Qty: 180 3RF Discontinued Eliquis 5 mg tablet 5 mg PO BID Qty: 60 0RF Patient Comments: NEW RX PRESCRIBED BY JAMES HERRERA ON 03/18/24 furosemide 40 mg tablet 80 mg PO BID Referrals / Follow Up: Tremaine Molina MD [Med Staff - Active Staff] - Within 2 Weeks César Chinchilla MD [Primary Care Provider] - Within 2 Weeks Disposition Disposition (needs filled in before D/C Order can be placed): Long Term Facility
--- NOTE | 2024-03-24 11:07 | PN_ITS ---
Subjective Subjective Patient seen and examined. He feels much better today and has no complaints. He had an uneventful night. Review of symptoms otherwise negative. He has remained hemodynamically stable. Gastroenterology was consulted yesterday on account of some difficulty with swallowing. GI saw him and he does have a history of esophageal stricture. Plan therefore is for EGD on Tuesday. Objective Data Objective Data Vital Signs: Vital Signs Temp Pulse Resp BP Pulse Ox O2 Del Method O2 Flow Rate 98.0 F 78 15 118/87 H 98 Nasal Cannula 1 03/24/24 08:11 03/24/24 08:20 03/24/24 08:11 03/24/24 08:11 03/24/24 08:11 03/24/24 09:07 03/24/24 09:07 Oxygen Flow Rate (L/min) 1 Oxygen Delivery Method Nasal Cannula Weight: 136 lb 7.458 oz Body Mass Index (BMI) 20.7 Intake & Output: Intake and Output for Last 24 Hours 03/22/24 03/23/24 03/24/24 23:59 23:59 23:59 Intake Total 1345 / 1585 1295 / 1295 0 / 0 Output Total 150 / 150 925 / 925 0 / 0 Balance 1195 / 1435 370 / 370 0 / 0 Lab / Micro Data 03/24/24 06:35 03/24/24 06:35 Labs: Laboratory Results - last 24 hr 03/23/24 06:19: Magnesium 2.3 03/24/24 06:35: WBC 9.5, RBC 3.07 L, Hgb 11.7 L, Hct 34.2 L, MCV 111.4 H, MCH 38.1 H, MCHC 34.2, RDW Std Deviation 63.9 H, RDW Coeff of Pablo 15.7 H, Plt Count 260, MPV 10.1, Immature Gran % (Auto) 0.900, Neut % (Auto) 77.6 H, Lymph % (Auto) 9.3 L, [place] % (Auto) 9.7, Eos % (Auto) 1.8, Baso % (Auto) 0.7, Absolute Neuts (auto) 7.4, Absolute Lymphs (auto) 0.89, Nucleated RBC % 0, Sodium 141, Potassium 4.1, Chloride 106, Carbon Dioxide 27.0, Anion Gap 8, BUN 56 H, C reatinine 3.23 H, Estim Creat Clear Calc 15.44, Est GFR (MDRD) Af Amer 24 L, Est GFR (MDRD) Non-Af 20 L, BUN/Creatinine Ratio 17.3, Glucose 92, Calcium 8.8 Micro: Microbiology 03/20/24 17:16 Mucosa - Nose Respiratory Panel (PCR) - Final Rhythm Strip Rhythm Strip: Sinus Rhythm Rate: 88 Ectopy: PVC(s) Physical Exam Const alert, oriented x3, no apparent distress and well nourished General Appearance: cooperative HEENT normocephalic, head/scalp atraumatic, EAC's normal, moist oral mucous membranes and oropharynx normal Eyes PERRL and EOMs intact bilaterally Neck no lymphadenopathy and supple Lymph Lymphatic: no lymphadenopathy noted and no lymphedema noted Resp Resp Narrative: Mildly diminished breath sounds bibasilarly. No wheezes or crackles. On room air. Cardio regular rate, regular rhythm, S1 normal heart sound, S2 normal heart sound and no murmurs GI normal to inspection, nondistended, normoactive bowel sounds, soft to palpation, non-tender and non-distended Extremity normal capillary refill, no clubbing, cyanosis or edema and no calf tenderness General Extremity: no tenderness to palpation of joints or extremities Skin General Skin Exam: no breakdown Neuro CN's II-XII intact bilaterally, no focal motor deficits, no sensory deficits noted and deep tendon reflexes 2+ bilaterally Motor Exam: strength 5/5 throughout and general weakness Psych thought process normal Appearance: appropriate Assessment & Plan Assessment/Plan (1) CHF (congestive heart failure): PLAN: Plan #Acute hypoxia due to acute decompensated HFrEF * remains on room air * Had 2D echo June 2023 which showed EF of 35% with moderately severe global left ventricular systolic dysfunction and mild global right ventricular systolic dysfunction with severely enlarged left atrium and moderately enlarged right atrium and severe posteriorly directed mitral valve insufficiency. * Fluid restriction to 1500cc daily. * Lasix decreased to 80 mg daily due to hypotension. .\ #Dysphagia * patient was having some difficulty with swallowing during this admission * speech therapy evaluated patient has he had a history of stricture. * GI consulted, and he is for EGD on Tuesday * #Hypertension: On clonidine, Cardizem, Imdur and metoprolol. #Hyperlipidemia: Not on statin. Unclear why. #CAD: S/p PCI. On Eliquis and metoprolol. Hold eliquis due to him having EGD on Tuesday #COPD: Not in exacerbation. Breathing treatments with bronchodilators. #Atrial fibrillation: Status post ablation. On metoprolol and amiodarone as well as Cardizem. On Eliquis. Hold eliquis for EGD on Tuesday. place on heparin drip #CKD stage IV:Cr today is 3.26 today. Will continue to monitor closely. #Hypothyroidism: On Synthroid #Anxiety and depression: On trazodone #BPH: On Flomax and finasteride. Flomax dose decreased to 0.5 mg daily. DVT prophylaxis: on eliquis. Hold and start on heparin drip Disposition: for dc to TCU after EGD on Tuesday Charges/Coding Visit Charges Inpatient E&M: 33778 Subs Hosp L2
[2024-03-24] MEDS: Finasteride 5 MG Tablet PO (12:37)
[2024-03-24 12:52] LABS: International Normalized Ratio 1.6; Partial Thromboplast Time 37.5 Seconds (24.1-36.2); Prothrombin Time (Protime)PT. 19.2 SECONDS (11.7-14.9)
[2024-03-24] MEDS: Senna/Docusate Sodium 1 Tablet 2 TABLET PO (14:20)
[2024-03-24] MEDS: Glycerin/Hypromellose/PEG400 15 ml Bottle 2 DRP EACH EYE (15:17)
[2024-03-24] MEDS: Tamsulosin HCl 0.4 MG Capsule PO (16:31)
[2024-03-24] MEDS: 0.9% Saline Lock 10 ML Syringe IV (21:50)
[2024-03-24] MEDS: traZODone 50 MG Tablet 25 MG PO (21:51)
[2024-03-24] MEDS: Ferrous Sulfate 325 MG Tablet PO (21:51)
[2024-03-24] MEDS: HEPARIN/D5w 25,000 UNITS 25,000 UNITS/250 ML IV.SOLN. 8 UNITS CONT INF (22:05)
[2024-03-25] VITALS (10 sets, daily range): BP systolic 115–136; BP diastolic 68–86; PULSE 67–80; RESP 12–18; TEMP 36.4–36.8; O2SAT 95–98; BMI 20.4
[2024-03-25 04:25] LABS: Absolute Lymphocyte Count 1.06 X10^3/uL (0.83-4.51); Absolute Neutrophil Count 8.4 X10^3/uL (2.0-7.7); Basophil# 0.06 X10^3/uL; Basophil% 0.6 % (0-1); Eosinophil# 0.15 X10^3/uL; Eosinophils% 1.4 % (0-5); Hematocrit 32.5 % (40-54); Lymphocyte # 1.06 X10^3/ul (0.83-4.51); Mean Corp Hgb Conc 33.8 g/dL (32-36); Mean Corpuscular Hgb 37.5 pg (27.0-32.0); Mean Corpuscular Volume 110.9 fL (80-94); Mean Platelet Vol. 10.1 fl (6.2-12.0); Monocyte# 0.93 X10^3/uL; Monocyte% 8.7 % (0-10); NRBC Flagged by Analyzer 0 % (0-5); Neutrophil # 8.37 X10^3/uL (2.7-7.7); Neutrophil % 78.5 % (47-70); Platelet Count 248 K/mm3 (150-450); RBC Distribution Width CV 15.7 % (11.6-14.6); RBC Distribution Width SD 63.9 fl (35.1-43.9); Red Blood Count 2.93 M/mm3 (4.6-6.2); White Blood Count 10.7 K/mm3 (4.4-11.0)
[2024-03-25 04:36] LABS: Partial Thromboplast Time 68.3 Seconds (24.1-36.2)
[2024-03-25] MEDS: Lidocaine 5% Patch 1 PATCH TOPICAL (06:08)
[2024-03-25] MEDS: Levothyroxine 50 MCG Tablet PO (06:08)
[2024-03-25] MEDS: Potassium Chloride Oral Tablet 20 MEQ PO ×3 (06:08→22:04)
[2024-03-25] MEDS: Budesonide Respules 0.5 MG/2 ML AMPUL.NEB. INHALATION ×2 (07:00→17:44)
[2024-03-25] MEDS: Acetaminophen 325 MG Tablet 650 MG PO (10:35)
[2024-03-25] MEDS: Famotidine 20 MG Tablet PO (10:36)
[2024-03-25] MEDS: Ascorbic Acid 500 MG Tablet PO ×2 (10:36→22:09)
[2024-03-25] MEDS: Ranolazine 500 MG Tablet PO ×2 (10:36→22:02)
[2024-03-25] MEDS: Pantoprazole Sodium 40 MG Tablet PO ×2 (10:36→22:02)
[2024-03-25] MEDS: Loratadine 10 MG Tablet PO (10:36)
[2024-03-25] MEDS: Furosemide 80 MG Tablet PO (10:37)
[2024-03-25] MEDS: dilTIAZem CD 120 MG Capsule PO (10:37)
[2024-03-25] MEDS: Metoprolol Tartrate 25 MG Tablet 12.5 MG PO ×2 (10:37→22:02)
[2024-03-25] MEDS: Amiodarone 200 MG Tablet 100 MG PO ×2 (10:38→22:03)
[2024-03-25] MEDS: Isosorbide Mononitrate 30 MG Tablet PO (10:39)
--- NOTE | 2024-03-25 10:47 | PN_ITS ---
Subjective Subjective Patient seen and examined. He complained of some bloody bowel movements test this morning. He denies any nausea or vomiting, cough, fever or chills or any other symptoms. Review of systems otherwise negative. He has remained hemodynamically stable. Hemoglobin is 11. Objective Data Objective Data Vital Signs: Vital Signs Temp Pulse Resp BP Pulse Ox O2 Del Method O2 Flow Rate 97.6 F L 80 17 115/68 97 Nasal Cannula 2 03/25/24 10:03/25/24 10:37 03/25/24 10:03/25/24 10:03/25/24 10:03/25/24 10:03/25/24 10:27 Oxygen Flow Rate (L/min) 2 Oxygen Delivery Method Nasal Cannula Weight: 134 lb 4.184 oz Body Mass Index (BMI) 20.4 Intake & Output: Intake and Output for Last 24 Hours 03/23/24 03/24/24 03/25/24 23:59 23:59 23:59 Intake Total 1295 / 1295 300 / 550 355.33 / 355.33 Output Total 925 / 925 400 / 400 550 / 550 Balance 370 / 370 -100 / 150 -194.67 / -194.67 Lab / Micro Data 03/25/24 04:00 03/24/24 06:35 Labs: Laboratory Results - last 24 hr 03/24/24 12:35: PT 19.2 H, INR 1.6, APTT 37.5 H 03/25/24 04:00: WBC 10.7, RBC 2.93 L, Hgb 11.0 L, Hct 32.5 L, MCV 110.9 H, MCH 37.5 H, MCHC 33.8, RDW Std Deviation 63.9 H, RDW Coeff of Pablo 15.7 H, Plt Count 248, MPV 10.1, Immature Gran % (Auto) 0.800, Neut % (Auto) 78.5 H, Lymph % (Auto) 10.0 L, [place] % (Auto) 8.7, Eos % (Auto) 1.4, Baso % (Auto) 0.6, Absolute Neuts (auto) 8.4 H, Absolute Lymphs (auto) 1.06, Nucleated RBC % 0, APTT 68.3 H Micro: Microbiology 03/20/24 17:16 Mucosa - Nose Respiratory Panel (PCR) - Final Rhythm Strip Rhythm Strip: Sinus Rhythm Rate: 88 Ectopy: PVC(s) Physical Exam Const alert, oriented x3, no apparent distress and well nourished General Appearance: cooperative HEENT normocephalic, head/scalp atraumatic, EAC's normal, moist oral mucous membranes and oropharynx normal Eyes PERRL and EOMs intact bilaterally Neck no lymphadenopathy and supple Lymph Lymphatic: no lymphadenopathy noted and no lymphedema noted Resp Resp Narrative: Mildly diminished breath sounds bibasilarly. No wheezes or crackles. On room air. Cardio regular rate, regular rhythm, S1 normal heart sound, S2 normal heart sound and no murmurs GI normal to inspection, nondistended, normoactive bowel sounds, soft to palpation, non-tender and non-distended Extremity normal capillary refill, no clubbing, cyanosis or edema and no calf tenderness General Extremity: no tenderness to palpation of joints or extremities Skin General Skin Exam: no breakdown Neuro CN's II-XII intact bilaterally, no focal motor deficits, no sensory deficits noted and deep tendon reflexes 2+ bilaterally Motor Exam: strength 5/5 throughout and general weakness Psych thought process normal Appearance: appropriate Assessment & Plan Assessment/Plan (1) CHF (congestive heart failure): PLAN: Plan #Acute hypoxia due to acute decompensated HFrEF * remains on room air * Had 2D echo June 2023 which showed EF of 35% with moderately severe global left ventricular systolic dysfunction and mild global right ventricular systolic dysfunction with severely enlarged left atrium and moderately enlarged right atrium and severe posteriorly directed mitral valve insufficiency. * Fluid restriction to 1500cc daily. * Lasix decreased to 80 mg daily due to hypotension. #Dysphagia * patient was having some difficulty with swallowing during this admission * speech therapy evaluated patient has he had a history of stricture. * GI consulted, and he is for EGD on Tuesday * * #Rectal bleeding * Patient had a bloody bowel movement this morning. * Will hold heparin drip. Hemoglobin is stable at 11 with his baseline being at 14. * GI already on board, so will defer to GI about whether to have a colonoscopy in addition to the scheduled EGD for tomorrow. * #Hypertension: On clonidine, Cardizem, Imdur and metoprolol. #Hyperlipidemia: Not on statin. Unclear why. #CAD: S/p PCI. On Eliquis and metoprolol. Hold eliquis due to him having EGD on Tuesday #COPD: Not in exacerbation. Breathing treatments with bronchodilators. #Atrial fibrillation: Status post ablation. On metoprolol and amiodarone as well as Cardizem. On Eliquis. Hold eliquis for EGD on Tuesday. heparin drip held due to bloody bowel movement. #CKD stage IV:Cr today is 3.26 today. Will continue to monitor closely. #Hypothyroidism: On Synthroid #Anxiety and depression: On trazodone #BPH: On Flomax and finasteride. Flomax dose decreased to 5 mg daily. DVT prophylaxis: on eliquis. heparin drip held today due to rectal bleed Disposition: for dc to TCU after EGD on Tuesday Charges/Coding Visit Charges Inpatient E&M: 19375 Subs Hosp L2
[2024-03-25 11:15] LABS: Partial Thromboplast Time 51.8 Seconds (24.1-36.2)
[2024-03-25 11:21] LABS: Anion Gap 7 (5-15); BUN 62 mg/dL (7-18); BUN/Creat Ratio 19.3 RATIO (10-20); Calcium,Total 8.8 mg/dL (8.5-10.1); Chloride 106 mmol/L (98-107); Creatinine, Serum 3.22 mg/dL (0.70-1.30); EST Glomerular Filtration Rate 20 mL/min (>60); Est Glom Filt Rate - Afr Amer 24 mL/min (>60); Estimated Creatinine Clearance 15.24 ml/min; Glucose 87 mg/dL (74-106); Potassium 4.1 mmol/L (3.5-5.1); Sodium Level 139 mmol/L (136-145)
[2024-03-25] MEDS: 0.9% Saline Lock 10 ML Syringe IV (11:56)
[2024-03-25] MEDS: Finasteride 5 MG Tablet PO (13:02)
[2024-03-25] MEDS: Tamsulosin HCl 0.4 MG Capsule PO (17:16)
[2024-03-25] MEDS: Electrolyte Solution/Peg's 4000 ML 2000 ML PO (18:33)
--- NOTE | 2024-03-25 19:57 | EX.PCM.PN.GI ---
Subjective Subjective Patient developed loser GI bleeding today. Objective Data Objective Data Vital Signs: Vital Signs Temp Pulse Resp BP Pulse Ox O2 Del Method O2 Flow Rate 97.8 F 67 16 119/72 98 Nasal Cannula 2 03/25/24 16:22 03/25/24 17:44 03/25/24 17:44 03/25/24 16:22 03/25/24 16:22 03/25/24 16:24 03/25/24 16:24 Oxygen Flow Rate (L/min) 2 Oxygen Delivery Method Nasal Cannula Weight: 134 lb 4.184 oz Body Mass Index (BMI) 20.4 Intake & Output: Intake and Output for Last 24 Hours 03/23/24 03/24/24 03/25/24 23:59 23:59 23:59 Intake Total 1295 / 1295 300 / 550 1423.86 / 1423.86 Output Total 925 / 925 400 / 400 1600 / 1600 Balance 370 / 370 -100 / 150 -176.14 / -176.14 Lab / Micro Data 03/25/24 04:00 03/25/24 10:58 Labs: Laboratory Results - last 24 hr 03/25/24 04:00: WBC 10.7, RBC 2.93 L, Hgb 11.0 L, Hct 32.5 L, MCV 110.9 H, MCH 37.5 H, MCHC 33.8, RDW Std Deviation 63.9 H, RDW Coeff of Pablo 15.7 H, Plt Count 248, MPV 10.1, Immature Gran % (Auto) 0.800, Neut % (Auto) 78.5 H, Lymph % (Auto) 10.0 L, [place] % (Auto) 8.7, Eos % (Auto) 1.4, Baso % (Auto) 0.6, Absolute Neuts (auto) 8.4 H, Absolute Lymphs (auto) 1.06, Nucleated RBC % 0, APTT 68.3 H 03/25/24 10:58: APTT 51.8 H, Sodium 139, Potassium 4.1, Chloride 106, Carbon Dioxide 26.0, Anion Gap 7, BUN 62 H, Creatinine 3.22 H, Estim Creat Clear Calc 15.24, Est GFR (MDRD) Af Amer 24 L, Est GFR (MDRD) Non-Af 20 L, BUN/Creatinine Ratio 19.3, Glucose 87, Calcium 8.8 Micro: Microbiology 03/20/24 17:16 Mucosa - Nose Respiratory Panel (PCR) - Final Rhythm Strip Rhythm Strip: Sinus Rhythm Rate: 88 Ectopy: PVC(s) Physical Exam Const alert, oriented x3, no apparent distress and well nourished General Appearance: cooperative HEENT normocephalic, head/scalp atraumatic, EAC's normal, moist oral mucous membranes and oropharynx normal Eyes PERRL and EOMs intact bilaterally Neck no lymphadenopathy and supple Lymph Lymphatic: no lymphadenopathy noted and no lymphedema noted Resp Resp Narrative: Mildly diminished breath sounds bibasilarly. No wheezes or crackles. On room air. Cardio regular rate, regular rhythm, S1 normal heart sound, S2 normal heart sound and no murmurs GI normal to inspection, nondistended, normoactive bowel sounds, soft to palpation, non-tender and non-distended Extremity normal capillary refill, no clubbing, cyanosis or edema and no calf tenderness General Extremity: no tenderness to palpation of joints or extremities Skin General Skin Exam: no breakdown Neuro CN's II-XII intact bilaterally, no focal motor deficits, no sensory deficits noted and deep tendon reflexes 2+ bilaterally Motor Exam: strength 5/5 throughout and general weakness Psych thought process normal Appearance: appropriate Assessment & Plan Assessment/Plan (1) Acute blood loss anemia: (2) Stage 3b chronic kidney disease: (3) FE (acute kidney injury): PLAN: Plan Acute Blood Loss Anemia Hold home anticoagulation and aspirin. He will undergo an upper an lower endoscopy. FE on CKD stage IIIb His creatinine presentation was 2.20. His creatinine about 3 weeks ago was 1.74. His creatinine baseline is erratic from 1.74 to about 2.1. 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 Amiodarone continued. Cardizem continued with parameters. Reportedly recently Coumadin dose was decreased because INR was supratherapeutic. On presentation INR is 1.3. Hold anticoagulation secondary to acute blood loss anemia. Trend INR. Charges/Coding Visit Charges Inpatient E&M: 70155 Subs Hosp L3
[2024-03-25] MEDS: Ferrous Sulfate 325 MG Tablet PO (22:03)
[2024-03-25] MEDS: traZODone 50 MG Tablet 25 MG PO (22:03)
[2024-03-26] VITALS (11 sets, daily range): BP systolic 95–135; BP diastolic 55–86; PULSE 66–86; RESP 16–18; TEMP 36.1–36.8; O2SAT 95–99; BMI 20.4; BMI 20.2
--- NOTE | 2024-03-26 | COLBX_PTH ---
PATIENT: RICHIE HANSEN LOC: [facility] U#:[id number] AGE/SX: 83/M ROOM: [facility] RE03/20/[address]: Dr. Adela Farley MD : 1940 BED: 1 DIS: 03/26/2024 SPEC #: [id number] RECD: 03/26/24 13:37 STATUS: RADHA REElizabeth #: [id number] BARRIE: 03/26/24 00:[address]: Mika Hodges DEPT: SURGICAL PATHOLOGY RECD BY: Carson Martínez ENTERED: 03/27/24 07:30 SP TYPE: COLON BX OTHR DR: MD Dr. César Delaney MD Dr. Nana Yaa Koram, MD Tissues: COLON BIOPSY Procedures: Surgery Specimen Level IV Comments: @ Ordering doctor for SUIV edited from to @ by NEIL at 03/27/24 08 @ Submitting doctor edited from to @ by NEIL at 03/27/24819 HEADER OPERATION: Colonoscopy, EGD with dilation and biopsy of lesion PRE-OP DIAGNOSIS: Anemia, lower GI bleed TISSUE SUBMITTED: Submucosal lesion MICROSCOPIC DIAGNOSIS Submucosal lesion, not further specified, biopsy: Fragments of gastric mucosa with chronic inflammation. See comment. JACQUELYN/ 03/28/2024 COMMENT The results of immunohistochemistry for Helicobacter pylori will be reported separately ([id number]). MICROSCOPIC DESCRIPTION Slides are reviewed. GROSS DESCRIPTION Received in fixative is one container labeled with the patient's name and designated Submucosal lesion. The specimen consists of two irregular fragments of light ludwig soft tissue that in aggregate measure 0.8 x 0.4 x 0.1 cm. The specimen is totally submitted in one cassette. ROSA/ 03/27/2024 TC:3 CPT:11897
--- NOTE | 2024-03-26 | IMM_PTH ---
PATIENT: RICHIE HANSEN LOC: [facility] U#:[id number] AGE/SX: 83/M ROOM: [facility] RE03/20/[address]: Dr. Adela Farley MD : 1940 BED: 1 DIS: 03/26/2024 SPEC #: [id number] RECD: 03/28/24 11:51 STATUS: SOUT REQ #: [id number] BARRIE: 03/26/24 00:[address]: Mika Hodges DEPT: IMMUNOHISTOCHEMISTRY RECD BY: Arthur Ponce ENTERED: 03/28/24 11:51 SP TYPE: IMMUNO OTHR DR: MD Dr. César Delaney MD Dr. Nana Yaa Koram, MD Tissues: COLON BIOPSY Procedures: H Pylori (initial) Comments: @ Ordering doctor for H.PYLORI edited from to @ by NEIL at 03/28/24 1151 @ Submitting doctor edited from to @ by NEIL at 03/28/24 1151 PHYSICIAN & [place] [id number] SPECIMEN INFORMATION: Tissue Source: Submucosal lesion Clinical Info: Anemia, lower GI bleed Specimen Number: [id number] CPT code: 91050 METHODOLOGY: Deparaffinized sections of prefer/formalin-fixed tissue or PAP/DQ stained slides are incubated with monoclonal/polyclonal antibodies/oligonucleotide probes. Localization is made via biotin free immunoperoxidase method. Appropriate controls are performed and reacted as expected. Results on target cell population are indicated in the following table: RESULTS: ANTIBODY / CLONE RESULT H Pylori (polyclonal) negative These tests were developed and their performance characteristics determined by [facility]. They may not have been cleared or approved by the U.S. Food and Drug Administration. The FDA has determined that such clearance or approval is not necessary. The above immunohistochemical/dualISH markers are ordered and reviewed by the Pathologist. INTERPRETATION: Submucosal lesion, biopsy: Negative for Helicobacter pylori organisms. JACQUELYN/ 03/29/2024
[2024-03-26] MEDS: Ondansetron 4 MG/2 ML Vial IV (00:09)
[2024-03-26] MEDS: 0.9% Saline Lock 10 ML Syringe IV ×2 (00:14→13:33)
[2024-03-26 04:22] LABS: Absolute Lymphocyte Count 0.84 X10^3/uL (0.83-4.51); Absolute Neutrophil Count 8.6 X10^3/uL (2.0-7.7); Basophil# 0.08 X10^3/uL; Basophil% 0.7 % (0-1); Eosinophil# 0.09 X10^3/uL; Eosinophils% 0.8 % (0-5); Hematocrit 32.8 % (40-54); Hemoglobin 11.1 g/dL (13.0-16.5); Lymphocyte # 0.84 X10^3/ul (0.83-4.51); Lymphocyte % 7.8 % (19-41); Mean Corp Hgb Conc 33.8 g/dL (32-36); Mean Corpuscular Hgb 37.5 pg (27.0-32.0); Mean Corpuscular Volume 110.8 fL (80-94); Mean Platelet Vol. 9.5 fl (6.2-12.0); Monocyte# 0.98 X10^3/uL; Monocyte% 9.1 % (0-10); NRBC Flagged by Analyzer 0 % (0-5); Neutrophil # 8.62 X10^3/uL (2.7-7.7); Neutrophil % 80.6 % (47-70); Platelet Count 252 K/mm3 (150-450); RBC Distribution Width CV 15.8 % (11.6-14.6); RBC Distribution Width SD 64.9 fl (35.1-43.9); Red Blood Count 2.96 M/mm3 (4.6-6.2); White Blood Count 10.7 K/mm3 (4.4-11.0)
[2024-03-26 04:32] LABS: International Normalized Ratio 1.3
[2024-03-26 04:33] LABS: Partial Thromboplast Time 36.6 Seconds (24.1-36.2)
[2024-03-26] MEDS: Glycerin/Hypromellose/PEG400 15 ml Bottle 2 DRP EACH EYE (04:35)
[2024-03-26 04:51] LABS: AST(SGOT) 17 U/L (15-37); Alanine Aminotransfer ALT/SGPT 20 U/L (16-61); Albumin, Serum 3.1 g/dL (3.2-5.0); Alkaline Phosphatase 72 U/L (45-117); Anion Gap 9 (5-15); BUN 61 mg/dL (7-18); BUN/Creat Ratio 19.6 RATIO (10-20); Bilirubin, Direct 0.32 mg/dL (0.00-0.30); Calcium,Total 8.5 mg/dL (8.5-10.1); Chloride 105 mmol/L (98-107); Creatinine, Serum 3.11 mg/dL (0.70-1.30); EST Glomerular Filtration Rate 21 mL/min (>60); Est Glom Filt Rate - Afr Amer 25 mL/min (>60); Estimated Creatinine Clearance 15.77 ml/min; Globulin 3.6 g/dL (2.2-4.2); Glucose 103 mg/dL (74-106); Potassium 3.9 mmol/L (3.5-5.1); Protein, Total 6.7 g/dL (6.4-8.2); Sodium Level 141 mmol/L (136-145)
--- NOTE | 2024-03-26 05:55 | EKG12_ITS ---
Test Reason : AM EKG Blood Pressure : / mmHG Vent. Rate : 078 BPM Atrial Rate : 078 BPM P-R Int : 176 ms QRS Dur : 168 ms QT Int : 460 ms P-R-T Axes : 072 -60 095 degrees QTc Int : 524 ms Sinus rhythm with Premature atrial complexes with Aberrant conduction Left axis deviation Left bundle branch block Abnormal ECG When compared with ECG of 22-MAR-2024 19:44, MANUAL COMPARISON REQUIRED, DATA IS UNCONFIRMED Confirmed by JOSE KASPER, JESSICA ([id number]), writer editor MADISON MONTOYA ([id number]) on 03/30/2024 9:46:43 AM Referred By: MYRA Confirmed By:CAM GARCIA MD
[2024-03-26] MEDS: Budesonide Respules 0.5 MG/2 ML AMPUL.NEB. INHALATION (07:29)
--- NOTE | 2024-03-26 08:41 | CASEMGMT ---
Social Work Discharge plan is for pt to go to TCU when ready. Pt to have an EGD today, and possibly further testing. MAGNUS updated Tami in TCU, will continue to follow. Plan continues to be for pt to go to TCU when medically ready. JACQUES Pereira
--- NOTE | 2024-03-26 11:07 | PCM.PRE.AN2 ---
ASA Classification* ASA Classification ASA Classification: 3 Assessment & Plan Anesthesia* Anesthesia Assessment Anesthesia Assessment: Discussed sedation and/or anesthesia options, risks, benefits, and alternatives with patient/parents/legal guardian/POA. Questions invited. The patient/parents/legal guardian/POA seems to understand and agrees to proceed with anesthesia plan. Reviewed the physical assessment, medical history, allergy history and patient home medications list prior to surgery/procedure/anesthetic and documented any changes. Performed airway and anesthesia risk assessments. Anesthesia Type Anesthesia Type: MAC History Source History Obtained from:: Patient and Chart Anesthesia Focused Assessment* Temperature: 97.2 F Pulse Rate: 79 Blood Pressure: 135/86 Respiratory Rate: 18 Pulse Ox: 99 Oxygen Delivery Method: Nasal Cannula (Patient was placed on oxygen nasal cannula in the hospital.) Airway Assessment Mouth opens: 2 cm Mallampati Score: III Teeth Condition: Caps/Crowns ([place] on lower right molar is tight) and Dentures (Upper dentures are out.) Neck Range of motion (ROM): Limited ROM Comment: Some kyphosis is present. Pertinent Findings EKG Pertinent Findings:: March 26, 2024 sinus rhythm with premature atrial complexes with aberrant conduction. Left axis deviation. Left bundle branch block. Focused Labs Anesthesia Preop lab: CBC WBC 10.7 K/mm3 (4.4-11.0) 03/26/24 04:00 RBC 2.96 M/mm3 (4.6-6.2) L 03/26/24 04:00 Hgb 11.1 g/dL (13.0-16.5) L 03/26/24 04:00 Hct 32.8 % (40-54) L 03/26/24 04:00 Plt Count 252 K/mm3 (150-450) 03/26/24 04:00 CHEMISTRY Potassium 3.9 mmol/L (3.5-5.1) 03/26/24 04:00 Sodium 141 mmol/L (136-145) 03/26/24 04:00 Magnesium 2.3 mg/dL (1.6-2.6) 03/23/24 06:19 Phosphorus 3.6 mg/dL (2.5-4.9) 03/17/24 06:23 BUN 61 mg/dL (7-18) H 03/26/24 04:00 Creatinine 3.11 mg/dL (0.70-1.30) H 03/26/24 04:00 Glucose 103 mg/dL (74-106) 03/26/24 04:00 POC Glucose 98 mg/dL (74-106) 03/16/24 17:35 TSH 2.80 uIU/mL (0.358-3.74) 03/26/24 04:00 COAG PT 16.0 SECONDS (11.7-14.9) H 03/26/24 04:00 INR 5.5 H* 03/22/22 15:57 Pre-Assessment Diagnosis/Proposed Procedure Planned Operative Procedure(s): Esophagogastroduodenoscopy. Colonoscopy Anesthesia History Anesthesia History - shift superintendent caustic cresylate: Anesthesia History - shift superintendent caustic cresylate Hx Hospitalization No 07/15/23 14:51 Any Problems With Anesthesia No 03/26/24 03:23 Cholinesterase deficiency No 03/26/24 03:23 You/Your Family Experience No 03/26/24 03:23 fever (hyperthermia) with Relationship Recent Exposure to Contagious No 03/26/24 03:23 Disease Does patient have nerve No 03/26/24 03:23 stimulator Patient instructed to have device shut off --Does patient have Pacemaker or ICD? When Was Last Pacemaker Check QUESTION #4 FULL TEXT: You/Your Family Experience fever (hyperthermia) with Anesthesia Last Oral Intake Last Oral intake: Last Oral Intake NPO since 00:00 03/26/24 00:35 Meds taken in AM with sips of No 03/26/24 00:35 water? Meds patient instructed to take am of surgery Any additional information?: Yes NPO since: 08:00 (Last prep was at 8 AM.) PONV PONV - shift superintendent caustic cresylate: PONV - shift superintendent caustic cresylate Female HX of Motion Sickness HX of N/V After Surgery Non-Smoker Duration of Surgery greater than 60 minutes Number of Risk Factors PONV Score Height & Weight Height & Weight: Anesthesia: Height & Weight Height 5 ft 8 in 03/26/24 00:35 Weight: 60.3 kg 03/26/24 05:30 Body Mass Index (BMI) 20.2 03/26/24 05:30 Respiratory Assessment Respiratory Assessment - shift superintendent caustic cresylate: Respiratory Tract Infection Hx - shift superintendent caustic cresylate Hx Respiratory Tract Infection No 03/26/24 03:23 STOP Sleep Apnea STOP Sleep Apnea - shift superintendent caustic cresylate: STOP Sleep Apnea - shift superintendent caustic cresylate Hx Hypertension Yes 03/21/24 16:36 Hx Sleep Apnea Yes 03/20/24 16:12 CPAP No 03/20/24 16:12 BIPAP No 03/20/24 16:12 Do you snore loudly (louder than talking or can be heard Do you often feel tired/ fatigued/ sleepy during daytime? Has anyone observed you stop breathing during sleep? STOP Results Positive 03/20/24 16:12 QUESTION #5 FULL TEXT : Do you snore loudly (louder than talking or can be heard through closed doors)? 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 Specify any problems Hx of Preganancy in last 3 N/A 03/20/24 16:12 Months Nurse Filling Out Transfusion AHAGGERTY 03/20/24 16:12 & Questions: Date: 03/20/24 03/20/24 16:12 Time: 16:15 03/20/24 16:12 Patient unable to answer at this time (ie. confused, unrespo /Reproduction History /Reproductive History - shift superintendent caustic cresylate: /Reproductive Hx- shift superintendent caustic cresylate Hx Now Gestational Age (in weeks): EDC: Hx Hx Para Hx Section SAB No 02/25/23 12:16 Active Medications Active Medications: Current Medications Generic Name Dose Route Start Last Admin Trade Name Freq PRN Reason Stop Dose Admin Acetaminophen 650 mg 03/20/24 16:21 03/25/24 10:35 Acetaminophen 325 Mg Tablet PO 650 mg Q4H PRN PRN Administration Fever, pain 1-06/07 Al Hydrox/Mg Hydrox/Simethicone 30 ml 03/20/24 16:21 Mag /Aluminum/Simeth [facility] Udc 30 Ml Oral.Susp PO Q6H PRN PRN Gastric Burning Albuterol Sulfate 2.5 mg 03/20/24 16:21 03/20/24 20:48 Albuterol 2.5 Mg/3 Ml Vial.Neb. INHALATION 2.5 mg Q2H PRN PRN Administration Dyspnea, wheezing Amiodarone HCl 100 mg 03/20/24 22:00 03/25/24 22:03 Amiodarone 200 Mg Tablet PO 100 mg BID ILEANA Administration Apixaban 2.5 mg 03/22/24 22:00 03/24/24 08:19 Apixaban 2.5 Mg Tablet ([facility]) PO 2.5 mg BID ILEANA Administration Ascorbic Acid 500 mg 03/20/24 22:00 03/25/24 22:09 Ascorbic Acid 500 Mg Tablet PO 500 mg BID ILEANA Administration Budesonide 0.5 mg 03/20/24 16:30 03/26/24 07:29 Budesonide Respules 0.5 Mg/2 Ml Ampul.Neb. INHALATION 0.5 mg BID.RT ILEANA Administration Diltiazem HCl 120 mg 03/21/24 10:00 03/25/24 10:37 Diltiazem Cd 120 Mg Capsule PO 120 mg DAILY ILEANA Administration Protocol Famotidine 20 mg 03/20/24 22:00 03/25/24 10:36 Famotidine 20 Mg Tablet PO 20 mg DAILY ILEANA Administration Ferrous Sulfate 325 mg 03/20/24 22:00 03/25/24 22:03 Ferrous Sulfate 325 Mg Tablet PO 325 mg QHS ILEANA Administration Finasteride 5 mg 03/21/24 12:00 03/25/24 13:02 Finasteride 5 Mg Tablet PO 5 mg 1200 ILEANA Administration Furosemide 80 mg 03/24/24 10:00 03/25/24 10:37 Furosemide 80 Mg Tablet PO 80 mg DAILY ILEANA Administration Protocol Glycerin/Hypromellose/Polyethylene 2 drp 03/23/24 08:43 03/26/24 04:35 Glycerin/Hypromellose/Ada488 15 Ml Bottle EACH EYE 2 drp 4X/DAY PRN PRN Administration DRY EYES Guaifenesin 20 ml 03/20/24 16:21 Guaifenesin 10 Ml Udc (200mg/10ml) PO Q4H PRN PRN COUGH Heparin Sodium (Porcine) 0 unit 03/24/24 11:30 Heparin Injection (Vial) 5,000 Unit/Ml Vial IV UD PRN dose adjustment Protocol Hydralazine HCl 10 mg 03/20/24 16:21 Hydralazine 20 Mg/Ml Vial IV Q4H PRN PRN SBP > 160 Protocol Lactated Ringer's 1,000 mls @ 15 mls/hr 03/26/24 10:30 IV .Q48H ILEANA Isosorbide Mononitrate 30 mg 03/21/24 10:00 03/25/24 10:39 Isosorbide Mononitrate 30 Mg Tablet PO 30 mg DAILY [facility] Administration Protocol Levothyroxine Sodium 50 mcg 03/21/24 06:00 03/26/24 05:06 Levothyroxine 50 Mcg Tablet PO Not Given DAILY@0600 [facility] Lidocaine 1 patch 03/25/24 04:40 03/25/24 06:08 Lidocaine 5% Patch TOPICAL 1 patch DAILY [facility] Administration Protocol Loratadine 10 mg 03/21/24 10:00 03/25/24 10:36 Loratadine 10 Mg Tablet PO 10 mg Q48 [facility] Administration Melatonin 3 mg 03/20/24 16:21 Melatonin 3 Mg Tablet PO QHS PRN PRN INSOMNIA Menthol 1 applic 03/21/24 20:10 03/23/24 22:34 Menthol 226.8 Gm Jar TOPICAL 1 applic TID PRN PRN Administration Pain/Inflammation Metoprolol Tartrate 12.5 mg 03/20/24 22:00 03/25/24 22:02 Metoprolol Tartrate 25 Mg Tablet PO 12.5 mg BID [facility] Administration Protocol Nitroglycerin 0.4 mg 03/20/24 16:21 Nitroglycerin (Inpatient Use) 0.4 Mg Tab.Subl SL Q5M PRN CARDIAC/CHEST PAIN Ondansetron HCl 4 mg 03/20/24 16:21 03/26/24 00:09 Ondansetron 4 Mg/2 Ml Vial IV 4 mg Q8H PRN PRN Administration NAUSEA/VOMITING Pantoprazole Sodium 40 mg 03/20/24 22:00 03/25/24 22:02 Pantoprazole Sodium 40 Mg Tablet PO 40 mg BID [facility] Administration Potassium Chloride 20 meq 03/20/24 22:00 03/26/24 05:06 Potassium Chloride Oral Tablet 20 Meq PO Not Given TID ILEANA Prochlorperazine Edisylate 5 mg 03/20/24 16:21 03/23/24 09:13 Prochlorperazine 10 Mg/2 Ml Vial IV 5 mg Q4H PRN PRN Administration Breakthrough Nausea/Vomiting Ranolazine 500 mg 03/20/24 22:00 03/25/24 22:02 Ranolazine 500 Mg Tablet PO 500 mg BID ILEANA Administration Senna/Docusate Sodium 2 tablet 03/20/24 16:21 03/24/24 14:20 Senna/Docusate Sodium 1 Tablet PO 2 tablet BID PRN PRN Administration Constipation Sodium Chloride 10 - 40 ml 03/20/24 16:21 03/26/24 00:14 0.9% Saline Lock 10 Ml Syringe IV 10 ml UD PRN Administration SALINE FLUSH Tamsulosin HCl 0.4 mg 03/24/24 17:30 03/25/24 17:16 Tamsulosin Hcl 0.4 Mg Capsule PO 0.4 mg DAILY@1730 ILEANA Administration Trazodone HCl 25 mg 03/20/24 22:00 03/25/24 22:03 Trazodone 50 Mg Tablet PO 25 mg QHS ILEANA Administration PFSH Medical History Abnormal abdominal ultrasound Persistent atrial fibrillation Hearing loss, left Hearing loss, right Anxiety Chronic pain Rheumatoid arthritis COPD (chronic obstructive pulmonary disease) Irregular heart beat Hypertension Hypothyroidism Hiatal hernia Acute constipation Acute exacerbation of chronic low back pain Wears glasses Thyroid disease Ambulates with cane Arthritis History of renal disease Anemia High cholesterol Easy bruising Excessive bleeding History of leukemia Back pain Difficulty chewing History of diverticulitis Gastric reflux Sleep apnea History of pain when walking History of edema History of echocardiogram History of stress test Cardiology follow-up encounter History of heart attack Nausea and vomiting Chronic anemia Diarrhea Colitis Acute kidney injury Sleep apnea Acute kidney injury superimposed on chronic kidney disease On amiodarone therapy Elevated LFTs Thoracic aortic aneurysm (TAA) Chronic heart failure with preserved ejection fraction (HFpEF) Nonrheumatic mitral (valve) insufficiency Atypical atrial flutter (12/2020) Elevated liver enzymes Debility Dysphagia Osteoarthritis History of colon polyps Cancer Kidney stones Kidney disease Non-smoker CPAP (continuous positive airway pressure) dependence Atrial fibrillation Myocardial infarct Chronic renal insufficiency Acute gastrointestinal bleeding Chronic kidney disease Benign prostatic hyperplasia Stage 3b chronic kidney disease GI bleed (2013) Non-rheumatic tricuspid valve insufficiency Secondary pulmonary arterial hypertension Essential (primary) hypertension BPH (benign prostatic hyperplasia) History of hyperthyroidism Paroxysmal atrial fibrillation 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 HLD (hyperlipidemia) Home Medications ?Medication ?Instructions ?Recorded ?Last Taken ?Type tamsulosin 0.4 mg capsule 0.4 mg PO BID PROSTATE 11/18/21 03/19/24 History vitamin B complex 1 cap PO BID SUPPLEMENT 05/01/22 03/19/24 History ascorbic acid (vitamin C) 500 mg 500 mg PO BID SUPPLEMENT 07/20/22 03/19/24 History tablet finasteride 5 mg tablet 5 mg PO 1200 PROSTATE 08/05/22 03/19/24 History cholecalciferol (vitamin D3) 25 1,000 unit PO QHS SUPPLEMENT 02/19/23 03/19/24 History mcg (1,000 unit) capsule (Vitamin D3) loratadine 10 mg tablet (Claritin) 10 mg PO DAILY ALLERGIES 06/16/23 03/19/24 History empagliflozin 10 mg tablet 10 mg PO DAILY DIABTETES #0 tabs 07/22/23 03/19/24 Rx (Jardiance) nitroglycerin 0.4 mg sublingual 0.4 mg sublingual Q5M PRN 07/22/23 Unknown Rx tablet Cardiac/Chest Pain #0 tabs ranolazine 500 mg tablet,extended 500 mg PO BID CHEST PAIN #60 tabs 02/03/24 03/15/24 Rx release,12 hr clonidine HCl 0.1 mg tablet 0.05 - 0.1 mg PO DAILY PRN BLOOD 02/28/24 03/15/24 History PRESSURE isosorbide mononitrate 30 mg 30 mg PO DAILY CHEST PAIN 02/28/24 03/19/24 History tablet,extended release 24 hr magnesium chloride 64 mg 128 mg PO BID SUPPLEMENT 02/28/24 03/19/24 History (magnesium chloride) tablet,delayed release (Mag 64) metoprolol tartrate 25 mg tablet 12.5 mg PO BID BLOOD PRESSURE 02/28/24 03/19/24 History pantoprazole 40 mg tablet,delayed 40 mg PO BID GERD 02/28/24 03/19/24 History release potassium chloride 20 mEq 20 meq PO TID SUPPLEMENT 02/28/24 03/19/24 History tablet,extended release(part/cryst) trazodone 50 mg tablet 25 mg PO QHS INSOMNIA 02/28/24 03/19/24 History amiodarone 100 mg tablet 100 mg PO BID HEART #180 tabs 02/29/24 03/19/24 Rx hydralazine 50 mg tablet 50 mg PO 4X/DAY PRN BLOOD PRESSURE 03/16/24 03/15/24 History diltiazem HCl 120 mg 120 mg PO DAILY BLOOD PRESSURE 03/20/24 Unknown History capsule,extended release 24 hr famotidine 20 mg tablet 20 mg PO BID GERD 03/20/24 Unknown History ferrous sulfate 325 mg (65 mg 325 mg PO QHS ANEMIA 03/20/24 03/19/24 History iron) tablet (Feosol) levothyroxine 50 mcg tablet 50 mcg PO DAILY THYROID 03/20/24 03/19/24 History apixaban 2.5 mg tablet (Eliquis) 2.5 mg PO BID #60 tabs 03/24/24 Unknown Rx furosemide 80 mg tablet 80 mg PO DAILY #40 tabs 03/24/24 Unknown Rx Allergy/AdvReac Type Severity Reaction Status Date / Time diclofenac Allergy rash Verified 03/20/24 12:08 prednisone Allergy Rash Verified 03/20/24 12:08 Family History Father Cancer Prostate cancer Mother Hypertension Sister Hypertension Surgical History History of back surgery History of cardiac catheterization History of esophagogastroduodenoscopy (EGD) History of cardioversion (06/18/19) History of radiofrequency ablation procedure for cardiac arrhythmia (11/11/11) History of electrophysiologic study (08/08/00) History of left heart catheterization (07/17/12) History of hemorrhoidectomy History of Zenaida fundoplication History of coronary artery stent placement (08/04/00) History of hernia repair History of back surgery Social History household members: none Smoking Status: Never smoker alcohol intake: never substance use type: does not use caffeine: No Review of Systems (Anesthesia) ROS Narrative System reviewed and no additional complaints, except as documented.
--- NOTE | 2024-03-26 12:41 | OP.EGD_ITS ---
Patient Name: Balbir Mckeon Procedure Date: 03/26/2024 10:43 AM Date of : 1940 Age: 83 Procedure: Upper GI endoscopy Indications: Iron deficiency anemia, Dysphagia, Melena Providers: Mika Hodges DO Medicines: Monitored Anesthesia Care Patient Profile: This is an 83 year old male. Refer to note in patient chart for documentation of history and physical. Patient has symptoms of dysphagia with both liquids and solids. Complications: No immediate complications. Procedure: Pre-Anesthesia Assessment: - Prior to the procedure, a History and Physical was performed, and patient medications and allergies were reviewed. The patient is competent. The risks and benefits of the procedure and the sedation options and risks were discussed with the patient. All questions were answered and informed consent was obtained. Patient identification and proposed procedure were verified by the physician in the pre-procedure area. Mental Status Examination: alert and oriented. Airway Examination: normal oropharyngeal airway and neck mobility. Respiratory Examination: clear to auscultation. CV Examination: normal. Prophylactic Antibiotics: The patient does not require prophylactic antibiotics. Prior Anticoagulants: The patient has taken no anticoagulant or antiplatelet agents except for NSAID medication. ASA Grade Assessment: IV - A patient with severe systemic disease that is a constant threat to life. After reviewing the risks and benefits, the patient was deemed in satisfactory condition to undergo the procedure. The anesthesia plan was to use monitored anesthesia care (MAC). Immediately prior to administration of medications, the patient was re-assessed for adequacy to receive sedatives. The heart rate, respiratory rate, oxygen saturations, blood pressure, adequacy of pulmonary ventilation, and response to care were monitored throughout the procedure. The physical status of the patient was re-assessed after the procedure. After obtaining informed consent, the endoscope was passed under direct vision. Throughout the procedure, the patient's blood pressure, pulse, and oxygen saturations were monitored continuously. The pediatric colonoscope was introduced through the mouth, and advanced to the second part of duodenum. The upper GI endoscopy was accomplished without difficulty. The patient tolerated the procedure well. Scope In: Scope Out: 12:13:33 PM Findings: One benign-appearing, intrinsic moderate stenosis was found 39 to 42 cm from the incisors. The stenosis was traversed after dilation. A guidewire was placed and the scope was withdrawn. Dilation was performed with a Savary dilator with no resistance at 60 Fr. The dilation site was examined and showed moderate improvement in luminal narrowing. Estimated blood loss was minimal. Evidence of a 360 degree fundoplication was found in the gastric fundus. The wrap appeared intact. This was traversed. A small, polypoid, non-circumferential mass with no bleeding and no stigmata of recent bleeding was found in the gastric body. Biopsies were taken with a cold forceps for histology. Verification of patient identification for the specimen was done. Estimated blood loss was minimal. No gross lesions were noted in the first portion of the duodenum. Impression: - Benign-appearing esophageal stenosis. Dilated. - A 360 degree fundoplication was found. The wrap appears intact. 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 - No gross lesions in the first portion of the duodenum. Recommendation: - [facility]. - Full liquid diet today. - Continue present medications. - Await pathology results. Procedure Code(s): --- Professional --- 72639, Esophagogastroduodenoscopy, flexible, transoral; with insertion of guide wire followed by passage of dilator(s) through esophagus over guide wire 91535, 59,51, Esophagogastroduodenoscopy, flexible, transoral; with biopsy, single or multiple CPT copyright 2021 [employer]. All rights reserved. The codes documented in this report are preliminary and upon paperhanger and painter review may be revised to meet current compliance requirements. Mika Hodges DO 03/26/2024 12:40:53 PM This report has been signed electronically. Number of Addenda: 0 Note Initiated On: 03/26/2024 10:43 AM
--- NOTE | 2024-03-26 12:41 | OP.CCLET_ITS ---
03/26/2024 César Chinchilla [address] [place] [address] Re : Upper GI endoscopy procedure for Balbir Mckeon Dear Dr. Chinchilla This procedure was performed on Tuesday, March 26, 2024. My impressions and recommendations are as follows: Impressions : - Benign-appearing esophageal stenosis. Dilated. - A 360 degree fundoplication was found. The wrap appears intact. 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 - No gross lesions in the first portion of the duodenum. Recommendations : - [facility] to [facility]. - Full liquid diet today. - Continue present medications. - Await pathology results. My findings are described in the full procedure note, which is enclosed. If I can be of further assistance, please feel free to contact me at . Sincerely, Mika Hodges, 03/26/2024 12:40:53 PM This report has been signed electronically.
--- NOTE | 2024-03-26 12:42 | PCM.POST.ANE ---
Anesthesia: Postop Eval I Current Vital Signs Temperature: 97 F Pulse Rate: 79 Blood Pressure: 95/55 Respiratory Rate: 16 Pulse Ox: 96 Oxygen Delivery Method: Nasal Cannula (2 l oxygen ) Assessment Airway patent: Yes Spontaneous unlabored respirations: Yes Mental status: Awake and Calm nausea: No Vomiting: No Anesthesia Complication: No Fluid Hydration Crystalloid volume administer (ml): 400 Total IV fluid infused: 400 Progress Note Anesthesia document: Postop Eval 1 completed: Yes
--- NOTE | 2024-03-26 12:43 | OP.COLON_ITS ---
Patient Name: Balbir Mckeon Procedure Date: 03/26/2024 12:13 PM Date of : 1940 Age: 83 Procedure: Colonoscopy Indications: Hematochezia Providers: Mika Hodges DO Medicines: Monitored Anesthesia Care Patient Profile: This is an 83 year old male. Refer to note in patient chart for documentation of history and physical. Patient has symptoms of dysphagia with both liquids and solids. Last Colonoscopy: 1 year ago. Complications: No immediate complications. Procedure: Pre-Anesthesia Assessment: - Prior to the procedure, a History and Physical was performed, and patient medications and allergies were reviewed. The patient is competent. The risks and benefits of the procedure and the sedation options and risks were discussed with the patient. All questions were answered and informed consent was obtained. Patient identification and proposed procedure were verified by the physician in the pre-procedure area. Mental Status Examination: alert and oriented. Airway Examination: normal oropharyngeal airway and neck mobility. Respiratory Examination: clear to auscultation. CV Examination: normal. Prophylactic Antibiotics: The patient does not require prophylactic antibiotics. Prior Anticoagulants: The patient has taken no anticoagulant or antiplatelet agents except for NSAID medication. ASA Grade Assessment: IV - A patient with severe systemic disease that is a constant threat to life. After reviewing the risks and benefits, the patient was deemed in satisfactory condition to undergo the procedure. The anesthesia plan was to use monitored anesthesia care (MAC). Immediately prior to administration of medications, the patient was re-assessed for adequacy to receive sedatives. The heart rate, respiratory rate, oxygen saturations, blood pressure, adequacy of pulmonary ventilation, and response to care were monitored throughout the procedure. The physical status of the patient was re-assessed after the procedure. After I obtained informed consent, the scope was passed under direct vision. Throughout the procedure, the patient's blood pressure, pulse, and oxygen saturations were monitored continuously. The pediatric colonoscope was introduced through the anus and advanced to the cecum, identified by appendiceal orifice and ileocecal valve. The colonoscopy was performed without difficulty. The patient tolerated the procedure well. The quality of the bowel preparation was inadequate. The ileocecal valve, appendiceal orifice, and rectum were photographed. Scope In: 12:15:47 PM Scope Withdrawal Time 0 hours 2 minutes 49 seconds Scope Out: 12:34:01 PM Total Procedure Duration Time 0 hours 18 minutes 14 seconds Findings: The perianal and digital rectal examinations were normal. Multiple large-mouthed diverticula were found in the entire colon. Extensive amounts of stool was found in the entire colon, precluding visualization. Impression: - Preparation of the colon was inadequate. - Diverticulosis in the entire examined colon. - Stool in the entire examined colon. - No specimens collected. Recommendation: - [facility]. - Full liquid diet. - Continue present medications. - Repeat colonoscopy in 6 months because the bowel preparation was poor. Procedure Code(s): --- Professional --- 80524, Colonoscopy, flexible; diagnostic, including collection of specimen(s) by brushing or washing, when performed (separate procedure) CPT copyright 2021 [employer]. All rights reserved. The codes documented in this report are preliminary and upon air conditioning unit tester review may be revised to meet current compliance requirements. Mika Hodges DO 03/26/2024 12:43:11 PM This report has been signed electronically. Number of Addenda: 0 Note Initiated On: 03/26/2024 12:13 PM
--- NOTE | 2024-03-26 12:43 | OP.CCLET_ITS ---
03/26/2024 César Chinchilla [address] [place] [address] Re : Colonoscopy procedure for Balbir Mckeon Dear Dr. Chinchilla This procedure was performed on Tuesday, March 26, 2024. My impressions and recommendations are as follows: Impressions : - Preparation of the colon was inadequate. - Diverticulosis in the entire examined colon. - Stool in the entire examined colon. - No specimens collected. Recommendations : - [facility]. - Full liquid diet. - Continue present medications. - Repeat colonoscopy in 6 months because the bowel preparation was poor. My findings are described in the full procedure note, which is enclosed. If I can be of further assistance, please feel free to contact me at . Sincerely, Mika Hodges, 03/26/2024 12:43:11 PM This report has been signed electronically.
--- NOTE | 2024-03-26 12:53 | PN_ITS ---
Subjective Subjective Patient seen and examined. He had no active complaints. Review of systems is otherwise negative. He is for EGD and colonoscopy today. He has remained hemodynamically stable. He did not have any rectal bleeding overnight. Objective Data Objective Data Vital Signs: Vital Signs Temp Pulse Resp BP Pulse Ox O2 Del Method O2 Flow Rate 97 F L 86 16 115/70 97 Nasal Cannula 2 03/26/24 12:50 03/26/24 12:50 03/26/24 12:50 03/26/24 12:50 03/26/24 12:50 03/26/24 12:50 03/26/24 12:50 Oxygen Flow Rate (L/min) 2 Oxygen Delivery Method Nasal Cannula Weight: 132 lb 15.02 oz Body Mass Index (BMI) 20.2 Intake & Output: Intake and Output for Last 24 Hours 03/24/24 03/25/24 03/26/24 23:59 23:59 23:59 Intake Total 300 / 550 1423.86 / 1423.86 Output Total 400 / 400 2300 / 2300 100 / 100 Balance -100 / 150 -876.14 / -876.14 -100 / -100 Lab / Micro Data 03/26/24 04:00 03/26/24 04:00 Labs: Laboratory Results - last 24 hr 03/26/24 04:00: WBC 10.7, RBC 2.96 L, Hgb 11.1 L, Hct 32.8 L, MCV 110.8 H, MCH 37.5 H, MCHC 33.8, RDW Std Deviation 64.9 H, RDW Coeff of Pablo 15.8 H, Plt Count 252, MPV 9.5, Immature Gran % (Auto) 1.000 H, Neut % (Auto) 80.6 H, Lymph % (Auto) 7.8 L, Cabell % (Auto) 9.1, Eos % (Auto) 0.8, Baso % (Auto) 0.7, Absolute Neuts (auto) 8.6 H, Absolute Lymphs (auto) 0.84, Nucleated RBC % 0, PT 16.0 H, INR 1.3, APTT 36.6 H, Sodium 141, Potassium 3.9, Chloride 105, Carbon Dioxide 27.0, Anion Gap 9, BUN 61 H, Creatinine 3.11 H, Estim Creat Clear Calc 15.77, E st GFR (MDRD) Af Amer 25 L, Est GFR (MDRD) Non-Af 21 L, BUN/Creatinine Ratio 19.6, Glucose 103, Calcium 8.5, Total Bilirubin 0.80, Direct Bilirubin 0.32 H, AST 17, ALT 20, Alkaline Phosphatase 72, Total Protein 6.7, Albumin 3.1 L, Globulin 3.6, TSH 2.80 Micro: Microbiology 03/20/24 17:16 Mucosa - Nose Respiratory Panel (PCR) - Final Rhythm Strip Rhythm Strip: Sinus Rhythm Rate: 88 Ectopy: PVC(s) Physical Exam Const alert, oriented x3, no apparent distress and well nourished General Appearance: cooperative HEENT normocephalic, head/scalp atraumatic, EAC's normal, moist oral mucous membranes and oropharynx normal Eyes PERRL and EOMs intact bilaterally Neck no lymphadenopathy and supple Lymph Lymphatic: no lymphadenopathy noted and no lymphedema noted Resp Resp Narrative: Mildly diminished breath sounds bibasilarly. No wheezes or crackles. On room air. Cardio regular rate, regular rhythm, S1 normal heart sound, S2 normal heart sound and no murmurs GI normal to inspection, nondistended, normoactive bowel sounds, soft to palpation, non-tender and non-distended Extremity normal capillary refill, no clubbing, cyanosis or edema and no calf tenderness General Extremity: no tenderness to palpation of joints or extremities Skin General Skin Exam: no breakdown Neuro CN's II-XII intact bilaterally, no focal motor deficits, no sensory deficits noted and deep tendon reflexes 2+ bilaterally Motor Exam: strength 5/5 throughout and general weakness Psych thought process normal Appearance: appropriate Assessment & Plan Assessment/Plan (1) CHF (congestive heart failure): PLAN: Plan #Acute hypoxia due to acute decompensated HFrEF * remains on room air * Had 2D echo June 2023 which showed EF of 35% with moderately severe global left ventricular systolic dysfunction and mild global right ventricular systolic dysfunction with severely enlarged left atrium and moderately enlarged right atrium and severe posteriorly directed mitral valve insufficiency. * Fluid restriction to 1500cc daily. * Lasix decreased to 80 mg daily due to hypotension. #Dysphagia * patient was having some difficulty with swallowing during this admission * speech therapy evaluated patient has he had a history of stricture. * GI consulted, and he is for EGD today * * #Rectal bleeding * didnt have any more bloody bowel movements overnight. * Hb has remained stable and is 11.1 today. * Hb baseline is 14. * discussed with GI, will have colonoscopy today also due to rectal bleeding. * #Hypertension: On clonidine, Cardizem, Imdur and metoprolol. #Hyperlipidemia: Not on statin. Unclear why. #CAD: S/p PCI. On Eliquis and metoprolol. Hold eliquis due to him having EGD on Tuesday #COPD: Not in exacerbation. Breathing treatments with bronchodilators. #Atrial fibrillation: Status post ablation. On metoprolol and amiodarone as well as Cardizem. On Eliquis. Hold eliquis for EGD on today. heparin drip held due to bloody bowel movement. #CKD stage IV:Cr today is 3.11 today. Will continue to monitor closely. #Hypothyroidism: On Synthroid #Anxiety and depression: On trazodone #BPH: On Flomax and finasteride. DVT prophylaxis: on eliquis. heparin drip held today due to rectal bleed Disposition: for dc to TCU after EGD and colonoscopy Charges/Coding Visit Charges Inpatient E&M: 04800 Subs Hosp L2
[2024-03-26] MEDS: Metoprolol Tartrate 25 MG Tablet 12.5 MG PO (13:32)
[2024-03-26] MEDS: Ascorbic Acid 500 MG Tablet PO (13:32)
[2024-03-26] MEDS: Ranolazine 500 MG Tablet PO (13:32)
[2024-03-26] MEDS: Pantoprazole Sodium 40 MG Tablet PO (13:32)
[2024-03-26] MEDS: Famotidine 20 MG Tablet PO (13:32)
[2024-03-26] MEDS: Isosorbide Mononitrate 30 MG Tablet PO (13:32)
[2024-03-26] MEDS: Lidocaine 5% Patch 1 PATCH TOPICAL (13:33)
[2024-03-26] MEDS: Amiodarone 200 MG Tablet 100 MG PO (13:33)
[2024-03-26] MEDS: Furosemide 80 MG Tablet PO (13:33)
[2024-03-26] MEDS: Potassium Chloride Oral Tablet 20 MEQ PO (13:33)
[2024-03-26] MEDS: Finasteride 5 MG Tablet PO (13:33)
[2024-03-26] MEDS: dilTIAZem CD 120 MG Capsule PO (13:33)
--- NOTE | 2024-03-26 15:30 | CHAPLAIN ---
Type of Pastoral Visit ___ Initial Visit ___ Follow-up Visit ___ On-call Visit ___ General Patient Visit ___ Spiritual Assessment ___ Family Conference ___ Bereavement ___ Rapid Response ___ Code Blue ___ Other (describe below) Pastoral Care Referral From ___ Patient ___ Family ___ Nurse ___ Physician ___ Equipment Service Technician ___ Internet Consultant ___ Other (describe below) Sacrament/Intervention ___ Active listening ___ Anointing ___ Voodoo ___ Bereavement ___ Communion ___ Jerica exploration ___ ___ Life review ___ Prayer ___ Reconciliation ___ Sacrament of Sick ___ Supportive presence ___ Wedding ___ Other (describe below) Pastoral Comments patient was unavailable on two attempts to visit
--- NOTE | 2024-03-26 15:47 | TREXTCAR_ITS ---
Diet Diet Order/Speech Therapy: 03/26/24 13:03 Diet: Full Liquid Dietary Modifications:: Sodium Restricted Fluid restriction:: 1500 mL Routine Orders/Code Status Enema Type: Fleetz Enema Frequency: Daily PRN Suppository Frequency: Daily PRN O2 Frequency: PRN Keep PO Greater than or Equal to (%): 90 Therapies Physical Therapy: Eval and Treat Occupational Therapy: Eval and Treat Problem/Diagnosis (1) CHF (congestive heart failure): Status: Acute Code(s): I50.9 - Heart failure, unspecified Plan #Acute hypoxia due to acute decompensated HFrEF * remains on room air * Had 2D echo June 2023 which showed EF of 35% with moderately severe global left ventricular systolic dysfunction and mild global right ventricular systolic dysfunction with severely enlarged left atrium and moderately enlarged right atrium and severe posteriorly directed mitral valve insufficiency. * Fluid restriction to 1500cc daily. * Lasix decreased to 80 mg daily due to hypotension. #Dysphagia * patient was having some difficulty with swallowing during this admission * speech therapy evaluated patient has he had a history of stricture. * GI consulted, and he is for EGD today * * #Rectal bleeding * didnt have any more bloody bowel movements overnight. * Hb has remained stable and is 11.1 today. * Hb baseline is 14. * discussed with GI, will have colonoscopy today also due to rectal bleeding. * #Hypertension: On clonidine, Cardizem, Imdur and metoprolol. #Hyperlipidemia: Not on statin. Unclear why. #CAD: S/p PCI. On Eliquis and metoprolol. Hold eliquis due to him having EGD on Tuesday #COPD: Not in exacerbation. Breathing treatments with bronchodilators. #Atrial fibrillation: Status post ablation. On metoprolol and amiodarone as well as Cardizem. On Eliquis. Hold eliquis for EGD on today. heparin drip held due to bloody bowel movement. #CKD stage IV:Cr today is 3.11 today. Will continue to monitor closely. #Hypothyroidism: On Synthroid #Anxiety and depression: On trazodone #BPH: On Flomax and finasteride. DVT prophylaxis: on eliquis. heparin drip held today due to rectal bleed Disposition: for dc to TCU after EGD and colonoscopy Allergies/Procedures Done in Hospital Allergies diclofenac Allergy (Verified 03/20/24 12:08) rash prednisone Allergy (Verified 03/20/24 12:08) Rash Procedures: EGD Type of Care/Length of Stay Estimated LOS: Convalescent Care Less Than 30 days Type of Care Needed: Skilled Rehab Potential: Fair Prognosis: Fair Additional Orders/Day of Discharge Day of Discharge: 03/24/24 Dietary and Speech Recommendations Dietitian Recommendations/Changes: Continue cardiac/sodium-restricted diet with 1500mL/day FR; consistency/texture as per [employer]. Will decrease Magic cup to 1 per day, with lunch meal. BUN/creat increased, maintain consistent protein and avoid extra ONS for now. Discharge Plan Admission Admit Date/Time: 03/20/24 15:25 Primary Reason for Your Visit: acute on chronic heart failure Attending Provider: Adela Farley Primary Care Provider: César Chinchilla Consulting Providers: Janel Blount Instructions Patient Instructions: Coping with Heart Failure Discharge Orders/Prescriptions Prescriptions: New Eliquis 2.5 mg tablet 2.5 mg PO BID Qty: 60 2RF furosemide 80 mg Tablet 80 mg PO DAILY Qty: 40 2RF Continued tamsulosin 0.4 mg capsule 0.4 mg PO BID ascorbic acid (vitamin C) 500 mg tablet 500 mg PO BID finasteride 5 mg tablet 5 mg PO 1200 clonidine HCl 0.1 mg tablet 0.05 - 0.1 mg PO DAILY PRN (Reason: BLOOD PRESSURE ) Patient Comments: RX NOT ON [facility] BUBBLE PACKAGING LIST ( OF 03/20/24). RX WAS CONTINUED BY JAMES HERRERA FROM [facility] trazodone 50 mg tablet 25 mg PO QHS metoprolol tartrate 25 mg tablet 12.5 mg PO BID magnesium chloride [Mag 64] 64 mg tablet,delayed release (DR/EC) 128 mg PO BID pantoprazole 40 mg tablet,delayed release (DR/EC) 40 mg PO BID isosorbide mononitrate 30 mg tablet extended release 24 hr 30 mg PO DAILY potassium chloride 20 mEq tablet,ER particles/crystals 20 meq PO TID vitamin B complex Capsule 1 cap PO BID cholecalciferol (vitamin D3) [Vitamin D3] 25 mcg (1,000 unit) Capsule 1,000 unit PO QHS nitroglycerin 0.4 mg Tablet, Sublingual 0.4 mg sublingual Q5M PRN (Reason: Cardiac/Chest Pain) Qty: 0 0RF Jardiance 10 mg Tablet 10 mg PO DAILY Qty: 0 0RF loratadine [Claritin] 10 mg tablet 10 mg PO DAILY hydralazine 50 mg Tablet 50 mg PO 4X/DAY PRN (Reason: BLOOD PRESSURE ) Patient Comments: RX NOT ON [facility] BUBBLE PACKAGING LIST ( OF 03/20/24). RX WAS CONTINUED BY JAMES HERRERA FROM [facility] TO THE [facility] famotidine 20 mg tablet 20 mg PO BID Patient Comments: RX WAS DISCONTINUED BY JAMES HERRERA FROM [facility] ADMISSION TO [facility]. [facility] HAS IT ON THEIR BUBBLE PACKAGING LIST ( OF 03/20/24) diltiazem HCl 120 mg capsule,extended release 24hr 120 mg PO DAILY Patient Comments: RX NOT ON [facility] BUBBLE PACKAGING LIST ( OF 03/20/24). RX WAS CONTINUED BY JAMES HERRERA FROM [facility] TO THE [facility] ferrous sulfate [Feosol] 325 mg (65 mg iron) tablet 325 mg PO QHS levothyroxine 50 mcg Tablet 50 mcg PO DAILY ranolazine 500 mg tablet extended release 12 hr 500 mg PO BID Qty: 60 11RF Patient Comments: RX NOT ON [facility] BUBBLE PACKAGING LIST ( OF 03/20/24). RX WAS CONTINUED BY JAMES HERRERA FROM [facility] TO THE [facility] amiodarone 100 mg tablet 100 mg PO BID Qty: 180 3RF Discontinued Eliquis 5 mg tablet 5 mg PO BID Qty: 60 0RF Patient Comments: NEW RX PRESCRIBED BY JAMES HERRERA ON 03/18/24 furosemide 40 mg tablet 80 mg PO BID Referrals / Follow Up: Tremaine Molina MD [Med Staff - Active Staff] - Within 2 Weeks César Chinchilla MD [Primary Care Provider] - Within 2 Weeks Disposition Disposition (needs filled in before D/C Order can be placed): [facility]
--- NOTE | 2024-03-26 15:49 | PCM.DC.SUM ---
Providers Date of Admission: 03/20/24 Date of Discharge: 03/26/24 Primary Care Physician: Dr. César Chinchilla MD Consultations 03/23/24 13:26 Consult: Gastroenterology Routine Consulting Provider: [facility] Reason for Consult: esophageal stricture EMERGENT Consult: No MD Notified: Yes Date Notified: 03/23/24 Time Notified: 13:26 Method of Notification: Verbal Reason For Visit: HF EXAC, HYPOXIA Diagnosis Discharge Diagnosis (1) CHF (congestive heart failure): Status: Acute Code(s): I50.9 - Heart failure, unspecified Plan #Acute hypoxia due to acute decompensated HFrEF remains on room air Had 2D echo June 2023 which showed EF of 35% with moderately severe global left ventricular systolic dysfunction and mild global right ventricular systolic dysfunction with severely enlarged left atrium and moderately enlarged right atrium and severe posteriorly directed mitral valve insufficiency. Fluid restriction to 1500cc daily. Lasix decreased to 80 mg daily due to hypotension. #Dysphagia patient was having some difficulty with swallowing during this admission speech therapy evaluated patient has he had a history of stricture. GI consulted, and he is for EGD today #Rectal bleeding didnt have any more bloody bowel movements overnight. Hb has remained stable and is 11.1 today. Hb baseline is 14. discussed with GI, will have colonoscopy today also due to rectal bleeding. #Hypertension: On clonidine, Cardizem, Imdur and metoprolol. #Hyperlipidemia: Not on statin. Unclear why. #CAD: S/p PCI. On Eliquis and metoprolol. Hold eliquis due to him having EGD on Tuesday #COPD: Not in exacerbation. Breathing treatments with bronchodilators. #Atrial fibrillation: Status post ablation. On metoprolol and amiodarone as well as Cardizem. On Eliquis. Hold eliquis for EGD on today. heparin drip held due to bloody bowel movement. #CKD stage IV:Cr today is 3.11 today. Will continue to monitor closely. #Hypothyroidism: On Synthroid #Anxiety and depression: On trazodone #BPH: On Flomax and finasteride. DVT prophylaxis: on eliquis. heparin drip held today due to rectal bleed Disposition: for dc to TCU after EGD and colonoscopy Medications at Discharge Home Medications tamsulosin 0.4 mg capsule 0.4 mg PO BID PROSTATE 11/18/21 vitamin B complex 1 cap PO BID SUPPLEMENT 05/01/22 ascorbic acid (vitamin C) 500 mg tablet 500 mg PO BID SUPPLEMENT 07/20/22 finasteride 5 mg tablet 5 mg PO 1200 PROSTATE 08/05/22 cholecalciferol (vitamin D3) 25 mcg (1,000 unit) capsule (Vitamin D3) 1,000 unit PO QHS SUPPLEMENT 02/19/23 loratadine 10 mg tablet (Claritin) 10 mg PO DAILY ALLERGIES 06/16/23 empagliflozin 10 mg tablet (Jardiance) 10 mg PO DAILY DIABTETES #0 tabs 07/22/23 nitroglycerin 0.4 mg sublingual tablet 0.4 mg sublingual Q5M PRN Cardiac/Chest Pain #0 tabs 07/22/23 ranolazine 500 mg tablet,extended release,12 hr 500 mg PO BID CHEST PAIN #60 tabs 02/03/24 clonidine HCl 0.1 mg tablet 0.05 - 0.1 mg PO DAILY PRN BLOOD PRESSURE 02/28/24 isosorbide mononitrate 30 mg tablet,extended release 24 hr 30 mg PO DAILY CHEST PAIN 02/28/24 magnesium chloride 64 mg (magnesium chloride) tablet,delayed release (Mag 64) 128 mg PO BID SUPPLEMENT 02/28/24 metoprolol tartrate 25 mg tablet 12.5 mg PO BID BLOOD PRESSURE 02/28/24 pantoprazole 40 mg tablet,delayed release 40 mg PO BID GERD 02/28/24 potassium chloride 20 mEq tablet,extended release(part/cryst) 20 meq PO TID SUPPLEMENT 02/28/24 trazodone 50 mg tablet 25 mg PO QHS INSOMNIA 02/28/24 amiodarone 100 mg tablet 100 mg PO BID HEART #180 tabs 02/29/24 hydralazine 50 mg tablet 50 mg PO 4X/DAY PRN BLOOD PRESSURE 03/16/24 diltiazem HCl 120 mg capsule,extended release 24 hr 120 mg PO DAILY BLOOD PRESSURE 03/20/24 famotidine 20 mg tablet 20 mg PO BID GERD 03/20/24 ferrous sulfate 325 mg (65 mg iron) tablet (Feosol) 325 mg PO QHS ANEMIA 03/20/24 levothyroxine 50 mcg tablet 50 mcg PO DAILY THYROID 03/20/24 apixaban 2.5 mg tablet (Eliquis) 2.5 mg PO BID #60 tabs 03/24/24 furosemide 80 mg tablet 80 mg PO DAILY #40 tabs 03/24/24 Hospital Course Operations None Procedures EGD Summary of Care Provided Minutes Spent on Discharge: 47 Hospital Course: Patient is an 83-year-old male with a past medical history as outlined was admitted through the ED on 03/20/2024 with complaint of nausea and dry heaves with assisted shortness of breath. Shortness of breath was present with exertion. He was saturating at 84% on room air. He was in the TCU where he had been admitted after being in the hospital for FE on CKD. He denied any peripheral edema. His Lasix had been discontinued at the time but he was discharged on account of his FE. On admission, BNP was markedly elevated at 2318 and chest x-ray showed cardiomegaly with mild degree of CHF. He was admitted and managed for acute exacerbation of CHF. He had gained about 8 pounds since his last discharge. He was diuresed with IV Lasix and his shortness of breath improved. He had known EF of 35% with moderate to severe global left ventricular systolic dysfunction and mild global right ventricular systolic dysfunction with severely enlarged left atrium and moderately enlarged right atrium as well as severe posteriorly directed mitral valve insufficiency. Hospital course was complicated by dysphagia and he had a known history of stricture. GI was therefore consulted and he had EGD with dilation of esophageal stricture. Hospital course was also complicated by an episode of rectal bleeding. His blood thinners were held and he also had colonoscopy which did not show any evidence of bleeding and showed diverticulosis in entire colon. Eliquis was therefore resumed. Patient remained stable and was discharged back to TCU on 03/26/2024. He is follow-up with his primary care doctor and gastroenterology as well as nephrology within 1 to 2 weeks. Patient seen and examined prior to discharge. He felt well and had no complaints. He had an uneventful night. Review of systems otherwise negative. Labs and vitals reviewed. Home medication reviewed and reconciled. Physical Exam Const alert, oriented x3, no apparent distress and well nourished General Appearance: cooperative and comfortable HEENT normocephalic, head/scalp atraumatic, hearing grossly normal bilaterally, EAC's normal, moist oral mucous membranes and oropharynx normal Mouth: oral and palatal mucosa normal Eyes PERRL, EOMs intact bilaterally and conjunctivae normal Neck no lymphadenopathy and supple Lymph Lymphatic: no lymphadenopathy noted and no lymphedema noted Resp Resp Narrative: Mildly diminished breath sounds bibasilarly. No wheezes or crackles. On room air. Cardio regular rate, regular rhythm, S1 normal heart sound, S2 normal heart sound and no murmurs GI normal to inspection, nondistended, normoactive bowel sounds, soft to palpation, non-tender and non-distended Extremity normal to inspection, full ROM, normal capillary refill, no clubbing, cyanosis or edema and no calf tenderness General Extremity: no tenderness to palpation of joints or extremities Skin no rashes or lesions noted General Skin Exam: no breakdown Neuro oriented x3, CN's II-XII intact bilaterally, moves all extremities, no focal motor deficits, no sensory deficits noted and deep tendon reflexes 2+ bilaterally Sensorium / Orientation: awake and alert Motor Exam: strength 5/5 throughout and general weakness Psych thought process normal Appearance: appropriate Weight / BMI Weight Weight: 132 lb 15.02 oz Body Mass Index (BMI) 20.2 ABG / Lab / Microbiology Data 03/26/24 04:00 03/26/24 04:00 Laboratory: Laboratory Results - last 24 hr 03/26/24 04:00: WBC 10.7, RBC 2.96 L, Hgb 11.1 L, Hct 32.8 L, MCV 110.8 H, MCH 37.5 H, MCHC 33.8, RDW Std Deviation 64.9 H, RDW Coeff of Pablo 15.8 H, Plt Count 252, MPV 9.5, Immature Gran % (Auto) 1.000 H, Neut % (Auto) 80.6 H, Lymph % (Auto) 7.8 L, [place] % (Auto) 9.1, Eos % (Auto) 0.8, Baso % (Auto) 0.7, Absolute Neuts (auto) 8.6 H, Absolute Lymphs (auto) 0.84, Nucleated RBC % 0, PT 16.0 H, INR 1.3, APTT 36.6 H, Sodium 141, Potassium 3.9, Chloride 105, Carbon Dioxide 27.0, Anion Gap 9, BUN 61 H, Creatinine 3.11 H, Estim Creat Clear Calc 15.77, Est GFR (MDRD) Af Amer 25 L, Est GFR (MDRD) Non-Af 21 L, BUN/Creatinine Ratio 19.6, Glucose 103, Calcium 8.5, Total Bilirubin 0.80, Direct Bilirubin 0.32 H, AST 17, ALT 20, Alkaline Phosphatase 72, Total Protein 6.7, Albumin 3.1 L, Globulin 3.6, TSH 2.80 Microbiology: Microbiology 03/20/24 17:16 Mucosa - Nose Respiratory Panel (PCR) - Final D/C Instructions Discharge Diet: - (full liquid diet, advance as tolerated) Discharge Activity: Return to Normal Activity Weight Bearing Status: Weight bearing as tolerated Call your doctor if you observe: Fever of 101 or Higher, Shortness of breath, Dizziness, Swelling in the ankles and Chest pain Meaningful Use Info Meaningful Use Meaningful Use Diagnoses (Choose all that apply): CHF CHF ARIELLE/ARB ordered at discharge?: No Reason ARIELLE/ARB not ordered?: Worsening renal disease Documented LVEF (%): 35 Ischemic Stroke Statin Dosing Therapy Reference: STATIN DOSE THERAPY REFERENCE: * Patients > 75 years receive moderate or high dose statin therapy. * Patients 75 years or YOUNGER should receive HIGH intensity statin dose unless contraindicated. You will be required to document reason for non-treatment if statin daily dose does not meet guidelines. HIGH DOSE STATIN THERAPY DAILY Atorvastatin > than or = to 40 mg Rosuvastatin > than or = to 20 mg Amlodipine + Atorvastatin > than or = to 2.5/40 mg Ezetimibe + Simvastatin 10/80 mg Simvastatin 80mg Discharge Plan Admission Admit Date/Time: 03/20/24 15:25 Primary Reason for Your Visit: acute on chronic heart failure Attending Provider: Adela Farley Primary Care Provider: César Chinchilla Consulting Providers: Janel Blount Instructions Patient Instructions: Coping with Heart Failure Discharge Orders/Prescriptions Prescriptions: New Eliquis 2.5 mg tablet 2.5 mg PO BID Qty: 60 2RF furosemide 80 mg Tablet 80 mg PO DAILY Qty: 40 2RF Continued tamsulosin 0.4 mg capsule 0.4 mg PO BID ascorbic acid (vitamin C) 500 mg tablet 500 mg PO BID finasteride 5 mg tablet 5 mg PO 1200 clonidine HCl 0.1 mg tablet 0.05 - 0.1 mg PO DAILY PRN (Reason: BLOOD PRESSURE ) Patient Comments: RX NOT ON [facility] BUBBLE PACKAGING LIST ( OF 03/20/24). RX WAS CONTINUED BY JAMES HERRERA FROM [facility]MISSION TO THE HOSPITAL trazodone 50 mg tablet 25 mg PO QHS metoprolol tartrate 25 mg tablet 12.5 mg PO BID magnesium chloride [Mag 64] 64 mg tablet,delayed release (DR/EC) 128 mg PO BID pantoprazole 40 mg tablet,delayed release (DR/EC) 40 mg PO BID isosorbide mononitrate 30 mg tablet extended release 24 hr 30 mg PO DAILY potassium chloride 20 mEq tablet,ER particles/crystals 20 meq PO TID vitamin B complex Capsule 1 cap PO BID cholecalciferol (vitamin D3) [Vitamin D3] 25 mcg (1,000 unit) Capsule 1,000 unit PO QHS nitroglycerin 0.4 mg Tablet, Sublingual 0.4 mg sublingual Q5M PRN (Reason: Cardiac/Chest Pain) Qty: 0 0RF Jardiance 10 mg Tablet 10 mg PO DAILY Qty: 0 0RF loratadine [Claritin] 10 mg tablet 10 mg PO DAILY hydralazine 50 mg Tablet 50 mg PO 4X/DAY PRN (Reason: BLOOD PRESSURE ) Patient Comments: RX NOT ON [facility] BUBBLE PACKAGING LIST ( OF 03/20/24). RX WAS CONTINUED BY JAMES HERRERA FROM [facility] RECENT ADMISSION TO THE HOSPITAL famotidine 20 mg tablet 20 mg PO BID Patient Comments: RX WAS DISCONTINUED BY JAMES HERRERA FROM [facility] M[facility] RECENT ADMISSION TO [facility]. [facility] HAS IT ON THEIR BUBBLE PACKAGING LIST ( OF 03/20/24) diltiazem HCl 120 mg capsule,extended release 24hr 120 mg PO DAILY Patient Comments: RX NOT ON [facility] BUBBLE PACKAGING LIST ( OF 03/20/24). RX WAS CONTINUED BY JAMES HERRERA FROM [facility] MOST RECENT ADMISSION TO THE HOSPITAL ferrous sulfate [Feosol] 325 mg (65 mg iron) tablet 325 mg PO QHS levothyroxine 50 mcg Tablet 50 mcg PO DAILY ranolazine 500 mg tablet extended release 12 hr 500 mg PO BID Qty: 60 11RF Patient Comments: RX NOT ON [facility] BUBBLE PACKAGING LIST ( OF 03/20/24). RX WAS CONTINUED BY JAMES HERRERA FROM [facility] MOST RECENT ADMISSION TO THE HOSPITAL amiodarone 100 mg tablet 100 mg PO BID Qty: 180 3RF Discontinued Eliquis 5 mg tablet 5 mg PO BID Qty: 60 0RF Patient Comments: NEW RX PRESCRIBED BY JAMES HERRERA ON 03/18/24 furosemide 40 mg tablet 80 mg PO BID Referrals / Follow Up: Tremaine Molina MD [Med Staff - Active Staff] - Within 2 Weeks César Chinchilla MD [Primary Care Provider] - Within 2 Weeks Disposition Disposition (needs filled in before D/C Order can be placed): Residential Facility Charges/Coding Visit Charges Inpatient E&M: 29708 Disch Hosp >30min
--- NOTE | 2024-03-26 16:22 | CASEMGMT ---
Social Work Pt is discharged to TCU. MAGNUS let pt know, he is agreeable to go today. MAGNUS called pt's sister in law Neelima, message left letting her know pt is going to TCU today. MAGNUS faxed over discharge instructions. No further needs, pt to TCU today. JACQUES Pereira
--- NOTE | 2024-03-26 16:26 | PHA.DC.MR.R ---
Pharmacy [place] Med Reconciliation Pharmacy Service has performed discharge medication reconciliation for this patient. The patient's discharge medication list was reviewed for discrepancies and discrepancies were resolved. Medications at Discharge Home Medications tamsulosin 0.4 mg capsule 0.4 mg PO BID PROSTATE 11/18/21 vitamin B complex 1 cap PO BID SUPPLEMENT 05/01/22 ascorbic acid (vitamin C) 500 mg tablet 500 mg PO BID SUPPLEMENT 07/20/22 finasteride 5 mg tablet 5 mg PO 1200 PROSTATE 08/05/22 cholecalciferol (vitamin D3) 25 mcg (1,000 unit) capsule (Vitamin D3) 1,000 unit PO QHS SUPPLEMENT 02/19/23 empagliflozin 10 mg tablet (Jardiance) 10 mg PO DAILY DIABTETES #0 tabs 07/22/23 nitroglycerin 0.4 mg sublingual tablet 0.4 mg sublingual Q5M PRN Cardiac/Chest Pain #0 tabs 07/22/23 ranolazine 500 mg tablet,extended release,12 hr 500 mg PO BID CHEST PAIN #60 tabs 02/03/24 clonidine HCl 0.1 mg tablet 0.05 - 0.1 mg PO DAILY PRN BLOOD PRESSURE 02/28/24 isosorbide mononitrate 30 mg tablet,extended release 24 hr 30 mg PO DAILY CHEST PAIN 02/28/24 magnesium chloride 64 mg (magnesium chloride) tablet,delayed release (Mag 64) 128 mg PO BID SUPPLEMENT 02/28/24 metoprolol tartrate 25 mg tablet 12.5 mg PO BID BLOOD PRESSURE 02/28/24 pantoprazole 40 mg tablet,delayed release 40 mg PO BID GERD 02/28/24 potassium chloride 20 mEq tablet,extended release(part/cryst) 20 meq PO TID SUPPLEMENT 02/28/24 trazodone 50 mg tablet 25 mg PO QHS INSOMNIA 02/28/24 amiodarone 100 mg tablet 100 mg PO BID HEART #180 tabs 02/29/24 hydralazine 50 mg tablet 50 mg PO 4X/DAY PRN BLOOD PRESSURE 03/16/24 diltiazem HCl 120 mg capsule,extended release 24 hr 120 mg PO DAILY BLOOD PRESSURE 03/20/24 ferrous sulfate 325 mg (65 mg iron) tablet (Feosol) 325 mg PO QHS ANEMIA 03/20/24 levothyroxine 50 mcg tablet 50 mcg PO DAILY THYROID 07/23/24 apixaban 2.5 mg tablet (Eliquis) 2.5 mg PO BID #60 tabs 03/24/24 furosemide 80 mg tablet 80 mg PO DAILY #40 tabs 03/24/24 famotidine 20 mg tablet 20 mg PO DAILY GERD #0 tabs 03/26/24 loratadine 10 mg tablet (Claritin) 10 mg PO QODAY ALLERGIES #0 tabs 03/26/24
[2024-03-26] MEDS: Tamsulosin HCl 0.4 MG Capsule PO (16:32)
--- NOTE | 2024-03-26 16:54 | NURSING ---
Report called to [facility] in TCU. Patient going to TCU bed 9.
--- NOTE | 2024-03-27 07:26 | PCM.POSTANE2 ---
Anesthesia Postop Eval I Sum Postop Eval Completion status Anesthesia document: Postop Eval 1 completed: Yes Anesthesia Postop Eval I Summary Anesthesia Postop Eval I Summary: Anesthesia Postop Eval I: Assessment Summary Airway patent Yes 03/26/24 12:46 Spontaneous unlabored Yes 03/26/24 12:46 respirations Mental status Awake,Calm 03/26/24 12:46 nausea No 03/26/24 12:46 Vomiting No 03/26/24 12:46 Anesthesia Postop Eval I: Fluid Summary Crystalloid volume administer 400 03/26/24 12:46 (ml) Colloids volume administered ( ml) Blood Product volume administered (ml) Total IV fluid infused 400 03/26/24 12:47 Anesthesia Postop Eval I: Summary Notes Anesthesia Complication No 03/26/24 12:46 Anesthesia Complication Comment: Post-operative progress note Anesthesia: Postop Eval II Evaluation Mental status: Awake Pain Level: 0 nausea: No Vomiting: No
== END 2024-03-26 14:59 | DRG 291 ==
LOC: ED 15:28 → PCU 15:37
PROVIDERS: Anesthesiology; Hospitalist; Internal Medicine Gastroenterology; Admitting Provider Family Medicine; Emergency Provider Emergency Medicine; PCP Family Medicine; Visit Provider Student in an Organized Health Care Education/Training Program
PROC: 0DJD8ZZ Inspection of Lower Intestinal Tract, Via Natural or Artificial Opening Endoscopic (ICD-10-PCS; CPT 45378; principal; 2024-03-26 11:25)
DX: I13.0 Hypertensive heart and chronic kidney disease with heart failure and stage 1 through stage 4 chronic kidney disease, or unspecified chronic kidney disease (principal); I50.23 Acute on chronic systolic (congestive) heart failure; K57.31 Diverticulosis of large intestine without perforation or abscess with bleeding; D62 Acute posthemorrhagic anemia; N18.4 Chronic kidney disease, stage 4 (severe); K62.5 Hemorrhage of anus and rectum; I27.20 Pulmonary hypertension, unspecified; K22.2 Esophageal obstruction; I95.9 Hypotension, unspecified; Z79.01 Long term (current) use of anticoagulants; J43.9 Emphysema, unspecified; E03.9 Hypothyroidism, unspecified; F32.A Depression, unspecified; I48.0 Paroxysmal atrial fibrillation; G47.33 Obstructive sleep apnea (adult) (pediatric); I25.10 Atherosclerotic heart disease of native coronary artery without angina pectoris; E78.00 Pure hypercholesterolemia, unspecified; K31.84 Gastroparesis; I25.2 Old myocardial infarction; J30.9 Allergic rhinitis, unspecified; F41.9 Anxiety disorder, unspecified; K31.7 Polyp of stomach and duodenum; R13.10 Dysphagia, unspecified; R09.02 Hypoxemia; H91.93 Unspecified hearing loss, bilateral; Z66 Do not resuscitate; Z79.890 Hormone replacement therapy; Z79.899 Other long term (current) drug therapy; Z95.5 Presence of coronary angioplasty implant and graft
CPT/HCPCS: 36415; 71045; 80048; 80053; 80061; 80076; 83735; 83880; 84145; 84443; 84484; 85025; 85610; 85730; 87633; 88305; 88342; 92610; 93005; 93306; 94640; 94668; 97110; 97116; 97162; 97166; 97530; 97535; 99285; J7040; J7120; A4216; C1769; J1940; J2405

== ENCOUNTER 2024-03-26 17:28 | Inpatient (IN) | payer MEDICARE, OTHER, SELFPAY ==
[2024-03-26 17:14] VITALS: BMI 19.8
[2024-03-26 17:48] VITALS: BMI 19.8
[2024-03-26 17:51] VITALS: BP 110/75; PULSE 80; RESP 19; TEMP 36.2; O2SAT 92
[2024-03-26] MEDS: Tamsulosin HCl 0.4 MG Capsule PO (18:47)
[2024-03-26] MEDS: Vitamin B Comp W-C Capsule 1 CAP PO (23:40)
[2024-03-26] MEDS: Cholecalciferol (VIT D3) 25 MCG TABLET (1,000 UNITS) PO (23:41)
[2024-03-26] MEDS: Magnesium Chloride 64 MG Delay Rel.Tablet 128 MG PO (23:41)
[2024-03-26] MEDS: Senna/Docusate Sodium 1 Tablet PO (23:41)
[2024-03-26] MEDS: Ranolazine 500 MG Tablet PO (23:42)
[2024-03-26] MEDS: Ferrous Sulfate 325 MG Tablet PO (23:42)
[2024-03-26] MEDS: Ascorbic Acid 500 MG Tablet PO (23:42)
[2024-03-26] MEDS: traZODone 50 MG Tablet 25 MG PO (23:43)
[2024-03-26] MEDS: Pantoprazole Sodium 40 MG Tablet PO (23:43)
[2024-03-26] MEDS: Potassium Chloride Oral Tablet 20 MEQ PO (23:43)
[2024-03-26] MEDS: APIXABAN 2.5 MG TABLET (WCH) PO (23:43)
[2024-03-26 23:44] VITALS: BP 114/76; PULSE 75
[2024-03-26] MEDS: Metoprolol Tartrate 25 MG Tablet 12.5 MG PO (23:44)
[2024-03-26] MEDS: Amiodarone 200 MG Tablet 100 MG PO (23:45)
[2024-03-27] VITALS (7 sets, daily range): BP systolic 126–129; BP diastolic 81–83; PULSE 77–82; RESP 18; TEMP 36.5; O2SAT 97; BMI 20.2
--- NOTE | 2024-03-27 04:32 | HP.PCM_ITS ---
HPI - General General Date of Admission: 03/26/24 Date of Service: 03/26/24 Chief Complaint: Here for rehabilitation. HPI Narrative 03/20/2024 RICHIE HANSEN, is a 83 Male who presents to [facility] ED with shortness of breath. Pulsox 84% on room air, dry cough, discharged from [facility] 2 days ago. Duoneb given. Admit for COPD, CHF. 03/20/[address] [facility]. Lasix IV for acute HFrEF. Repeat Chest X-ray to rule out aspiration pneumonia. IV PPI for recurrent intractable nausea/vomiting. 03/20/2024 Echo normal LV size. LVSF normal. LA severely enlarged. EF 53%. Moderate pulmonary HTN. PASP 64mm HG. 03/21/2024 Breathing improved. Lasix stopped recent hospitalization 2/2 FE. Lasix IV for acute HFrEF. Creatinine 2.43. 03/22/2024 Feeling much better, IV Lasix stopped 2/2 low blood pressure. Now on PO Lasix, fluid restriction 1500cc per day. 03/23/2024 Weak, dizzy, IV fluids given for low blood pressure. Orthostatic vital signs negative. Lasix decreased to 80mg daily. 03/24/2024 Feels better, GI consult for dysphagia, esophageal stricture, plan EGD 03/26/2024. Lasix decreased to 80mg daily 2/2 low blood pressure. 03/25/2024 Blood bowel movements, Hemoglobin 11. Hold Eliquis, heparin drip for bloody bowel movements. 03/26/2024 Dr. Hodges EGD: Impressions : - Benign-appearing esophageal stenosis. Dilated. - A 360 degree fundoplication was found. The wrap appears intact. 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 - No gross lesions in the first portion of the duodenum. Recommendations : - [facility]. - Full liquid diet today. - Continue present medications. - Await pathology results. Dr. Hodges Colonoscopy: Impressions : - Preparation of the colon was inadequate. - Diverticulosis in the entire examined colon. - Stool in the entire examined colon. - No specimens collected. Recommendations : - [facility] to [facility] care. - Full liquid diet. - Continue present medications. - Repeat colonoscopy in 6 months because the bowel preparation was poor. 03/26/2024 Admit to TCU with debility, here for rehabilitation, strengthening, prior to discharge home alone. [facility] Medical History (Updated 03/27/24 @ 04:[address] Marcus Samuel MD) Acute kidney injury Hypotension Abnormal abdominal ultrasound Persistent atrial fibrillation Hearing loss, left Hearing loss, right Anxiety Chronic pain Rheumatoid arthritis COPD (chronic obstructive pulmonary disease) Irregular heart beat Hypertension Hypothyroidism Hiatal hernia Acute constipation Acute exacerbation of chronic low back pain Wears glasses Thyroid disease Ambulates with cane Arthritis History of renal disease Anemia High cholesterol Easy bruising Excessive bleeding History of leukemia Back pain Difficulty chewing History of diverticulitis Gastric reflux Sleep apnea History of pain when walking History of edema History of echocardiogram History of stress test Cardiology follow-up encounter History of heart attack Nausea and vomiting Chronic anemia Diarrhea Colitis Sleep apnea Acute kidney injury superimposed on chronic kidney disease On amiodarone therapy Elevated LFTs Thoracic aortic aneurysm (TAA) Chronic heart failure with preserved ejection fraction (HFpEF) Nonrheumatic mitral (valve) insufficiency Atypical atrial flutter (12/2020) Elevated liver enzymes Debility Dysphagia Osteoarthritis History of colon polyps Cancer Kidney stones Kidney disease Non-smoker CPAP (continuous positive airway pressure) dependence Atrial fibrillation Myocardial infarct Chronic renal insufficiency Acute gastrointestinal bleeding Chronic kidney disease Benign prostatic hyperplasia Stage 3b chronic kidney disease GI bleed (2012) Non-rheumatic tricuspid valve insufficiency Secondary pulmonary arterial hypertension Essential (primary) hypertension BPH (benign prostatic hyperplasia) History of hyperthyroidism Paroxysmal atrial fibrillation 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 HLD (hyperlipidemia) Home Medications ?Medication ?Instructions ?Recorded ?Last Taken ?Type tamsulosin 0.4 mg capsule 0.4 mg PO BID PROSTATE 11/18/21 03/19/24 History vitamin B complex 1 cap PO BID SUPPLEMENT 05/01/22 03/19/24 History ascorbic acid (vitamin C) 500 mg 500 mg PO BID SUPPLEMENT 07/20/22 03/19/24 History tablet finasteride 5 mg tablet 5 mg PO 1200 PROSTATE 08/05/22 03/19/24 History cholecalciferol (vitamin D3) 25 1,000 unit PO QHS SUPPLEMENT 02/19/23 03/19/24 History mcg (1,000 unit) capsule (Vitamin D3) empagliflozin 10 mg tablet 10 mg PO DAILY DIABTETES #0 tabs 07/22/23 03/19/24 Rx (Jardiance) nitroglycerin 0.4 mg sublingual 0.4 mg sublingual Q5M PRN 07/22/23 Unknown Rx tablet Cardiac/Chest Pain #0 tabs ranolazine 500 mg tablet,extended 500 mg PO BID CHEST PAIN #60 tabs 02/03/24 03/15/24 Rx release,12 hr clonidine HCl 0.1 mg tablet 0.05 - 0.1 mg PO DAILY PRN BLOOD 02/28/24 03/15/24 History PRESSURE isosorbide mononitrate 30 mg 30 mg PO DAILY CHEST PAIN 02/28/24 03/19/24 History tablet,extended release 24 hr magnesium chloride 64 mg 128 mg PO BID SUPPLEMENT 02/28/24 03/19/24 History (magnesium chloride) tablet,delayed release (Mag 64) metoprolol tartrate 25 mg tablet 12.5 mg PO BID BLOOD PRESSURE 02/28/24 03/19/24 History pantoprazole 40 mg tablet,delayed 40 mg PO BID GERD 02/28/24 03/19/24 History release potassium chloride 20 mEq 20 meq PO TID SUPPLEMENT 02/28/24 03/19/24 History tablet,extended release(part/cryst) trazodone 50 mg tablet 25 mg PO QHS INSOMNIA 02/28/24 03/19/24 History amiodarone 100 mg tablet 100 mg PO BID HEART #180 tabs 02/29/24 03/19/24 Rx hydralazine 50 mg tablet 50 mg PO 4X/DAY PRN BLOOD PRESSURE 03/16/24 03/15/24 History diltiazem HCl 120 mg 120 mg PO DAILY BLOOD PRESSURE 03/20/24 Unknown History capsule,extended release 24 hr ferrous sulfate 325 mg (65 mg 325 mg PO QHS ANEMIA 03/20/24 03/19/24 History iron) tablet (Feosol) levothyroxine 50 mcg tablet 50 mcg PO DAILY THYROID 03/20/24 03/19/24 History apixaban 2.5 mg tablet (Eliquis) 2.5 mg PO BID Anticoagulant #60 03/24/24 Unknown Rx tabs furosemide 80 mg tablet 80 mg PO DAILY Diuretic #40 tabs 03/24/24 Unknown Rx famotidine 20 mg tablet 20 mg PO DAILY GERD #0 tabs 03/26/24 Unknown Rx loratadine 10 mg tablet (Claritin) 10 mg PO QODAY ALLERGIES #0 tabs 03/26/24 03/19/24 Rx Allergy/AdvReac Type Severity Reaction Status Date / Time diclofenac Allergy rash Verified 03/20/24 12:08 prednisone Allergy Rash Verified 03/20/24 12:08 Family History Father Cancer Prostate cancer Mother Hypertension Sister Hypertension Surgical History History of back surgery History of cardiac catheterization History of esophagogastroduodenoscopy (EGD) History of cardioversion (06/18/19) History of radiofrequency ablation procedure for cardiac arrhythmia (11/11/11) History of electrophysiologic study (08/08/00) History of left heart catheterization (07/17/12) History of hemorrhoidectomy History of Zenaida fundoplication History of coronary artery stent placement (08/04/00) History of hernia repair History of back surgery Social History household members: none Smoking Status: Never smoker alcohol intake: never substance use type: does not use caffeine: No ROS Constitutional Constitutional: Reports fatigue and weakness; Denies chills, fever(s) or weight gain ENT HEENT: Denies headache(s), nasal congestion or nasal discharge Cardiovascular Cardiovascular: Denies chest pain or palpitations Respiratory/Chest Respiratory/Chest: Denies cough, excessive phlegm production or shortness of breath with exertion Gastrointestinal Gastrointestinal: Denies abdominal pain, nausea or vomiting Genitourinary Genitourinary: Denies dysuria Musculoskeletal Musculoskeletal: Denies joint pain or joint swelling Integumentary Integumentary: Denies rash or wounds Neurologic Neurologic: Denies focal weakness, numbness or tingling Psychiatric Psychiatric: Denies anxiety, auditory hallucinations, depression, homicidal ideation or suicidal ideation Vital Signs Vital Signs Vital Signs: 03/26/24 17:51 03/26/24 18:00 03/26/24 23:44 Temperature 97.2 F L Temperature Source Temporal Pulse Rate 80 75 Pulse Strength Normal (2+) Respiratory Rate 19 H Respiratory Effort Normal Non-Labored Respiratory Depth Normal Respiratory Pattern Normal Blood Pressure 110/75 114/76 Blood Pressure Mean 86 Blood Pressure Source Monitor Pulse Ox 92 Oxygen Delivery Method Room Air Nasal Cannula Oxygen Flow Rate (L/min) 2 Weight Weight: 59.239 kg Body Mass Index (BMI) 19.8 Physical Exam Const alert General Appearance: cooperative HEENT normocephalic Eyes PERRL and EOMs intact bilaterally Neck supple, no JVD and no carotid bruits Resp normal respiratory effort, normal air movement and clear to auscultation bilaterally Cardio regular rate and regular rhythm GI normal to inspection, nondistended, normoactive bowel sounds, non-tender and non-distended Extremity normal capillary refill General Extremity: Negative for edema Skin no rashes or lesions noted General Skin Exam: no breakdown Psych affect normal Appearance: appropriate Assessment & Plan Assessment/Plan (1) Debility: (2) Acute respiratory failure with hypoxia: (3) Acute HFrEF (heart failure with reduced ejection fraction): (4) COPD (chronic obstructive pulmonary disease): (5) Acute kidney injury: (6) Atrial fibrillation: (7) GERD (gastroesophageal reflux disease): (8) BPH (benign prostatic hyperplasia): (9) Hypothyroidism: (10) Allergic rhinitis: (11) Coronary artery disease: PLAN: Plan 83 year old male with below past medical history hospitalized for acute respiratory failure with hypoxia 2/2 acute HFrEF, complicated by acute kidney injury, hypotension, bloody stools, admitted to TCU with debility, here for rehabilitation, strengthening, prior to discharge home alone. * Debility - PT/OT. * Pain - Tylenol 1000mg q6 prn pain (1-10). * Bowel - senna/colace 1 tablet bid, Dulcolax 10mg pr daily prn, Magnesium citrate 300ml po x 1 prn. * Adult immunization - Administer pneumonia vaccine, covid vaccine, flu vaccine as appropriate. * DVT prophylaxis - on Eliquis. * Atrial Fibrillation - Metoprolol 12.5mg bid, Cardizem CD 120mg daily, Amiodarone 100mg bid, Eliquis 2.5mg bid. * Iron deficiency anemia - Ferrous sulfate 325mg qhs, Vitamin C 500mg bid. * Vitamin D deficiency - D3 25mcg qhs. * Acute HFrEF - Metoprolol 12.5mg bid, Imdur 30mg daily, Jardiance 10mg daily, Furosemide 80mg daily. * Coronary Artery Disease- Metoprolol 12.5mg bid, Imdur 30mg daily, Ranexa 500mg bid, Jardiance 10mg daily, NTG 0.4mg sl q5m prn. * GERD - Pantoprazole 40mg bid. * Hypokalemia - KCL 20meq tid. * BPH - Finasteride 5mg daily, Tamsulosin 0.4mg bid. * Hypothyroidism - Levothyroxine 50mcg daily. * Hypomagnesemia - Magnesium chloride 128mg bid. * Insomnia - Trazodone 25mg qhs. * Leg cramps - Vitamin B complex 1 capsule bid.
[2024-03-27 05:46] LABS: Absolute Lymphocyte Count 0.89 X10^3/uL (0.83-4.51); Absolute Neutrophil Count 7.9 X10^3/uL (2.0-7.7); Basophil# 0.06 X10^3/uL; Basophil% 0.6 % (0-1); Eosinophil# 0.13 X10^3/uL; Eosinophils% 1.3 % (0-5); Hematocrit 30.8 % (40-54); Hemoglobin 10.4 g/dL (13.0-16.5); Lymphocyte # 0.89 X10^3/ul (0.83-4.51); Lymphocyte % 8.8 % (19-41); Mean Corp Hgb Conc 33.8 g/dL (32-36); Mean Corpuscular Hgb 37.8 pg (27.0-32.0); Monocyte# 0.99 X10^3/uL; Monocyte% 9.8 % (0-10); NRBC Flagged by Analyzer 0 % (0-5); Neutrophil # 7.93 X10^3/uL (2.7-7.7); Neutrophil % 78.5 % (47-70); Platelet Count 245 K/mm3 (150-450); RBC Distribution Width CV 15.9 % (11.6-14.6); RBC Distribution Width SD 64.4 fl (35.1-43.9); Red Blood Count 2.75 M/mm3 (4.6-6.2); White Blood Count 10.1 K/mm3 (4.4-11.0)
[2024-03-27 06:31] LABS: Anion Gap 7 (5-15); BUN 53 mg/dL (7-18); BUN/Creat Ratio 17.7 RATIO (10-20); Calcium,Total 8.8 mg/dL (8.5-10.1); Chloride 104 mmol/L (98-107); EST Glomerular Filtration Rate 21 mL/min (>60); Est Glom Filt Rate - Afr Amer 26 mL/min (>60); Estimated Creatinine Clearance 15.91 ml/min; Glucose 92 mg/dL (74-106); Potassium 4.3 mmol/L (3.5-5.1); Sodium Level 142 mmol/L (136-145)
[2024-03-27] MEDS: Levothyroxine 50 MCG Tablet PO (06:41)
[2024-03-27] MEDS: Potassium Chloride Oral Tablet 20 MEQ PO ×3 (06:41→21:51)
--- NOTE | 2024-03-27 08:01 | PCM.PN.DRR ---
Documented by User: Shireen Marcus 03/27/24 08:19 TCU RX Drug Regimen Review Subjective/Objective Subjective/Objective: Subjective: TCU Admission. 83 YOM presented to the ER with shortness of breath. Hospitalized for acute respiratory failure with hypoxia 2/2 acute HFrEF, complicated by acute kidney injury, hypotension, bloody stools. Admitted to TCU with debility for strengthening and rehabilitation. Objective: Allergies diclofenac Allergy (Verified 03/20/24 12:08) rash prednisone Allergy (Verified 03/20/24 12:08) Rash Current Medications Generic Name Dose Route Start Last Admin Trade Name Freq PRN Reason Stop Dose Admin Acetaminophen 1,000 mg 03/27/24 04:57 Acetaminophen 500 Mg Tablet PO Q6H PRN PRN Pain Score 1-10 Amiodarone HCl 100 mg 03/26/24 22:00 03/26/24 23:45 Amiodarone 200 Mg Tablet PO 100 mg BID ILEANA Administration Apixaban 2.5 mg 03/26/24 22:00 03/26/24 23:43 Apixaban 2.5 Mg Tablet ([facility]) PO 2.5 mg BID ILEANA Administration Ascorbic Acid 500 mg 03/26/24 22:00 03/26/24 23:42 Ascorbic Acid 500 Mg Tablet PO 500 mg BID ILEANA Administration Bisacodyl 10 mg 03/26/24 17:34 Bisacodyl 10 Mg Suppository RC DAILY PRN PRN Constipation Cholecalciferol 25 mcg 03/26/24 22:00 03/26/24 23:41 Cholecalciferol (Vit D3) 25 Mcg Tablet (1,000 Units) PO 25 mcg QHS ILEANA Administration Diltiazem HCl 120 mg 03/27/24 10:00 Diltiazem Cd 120 Mg Capsule PO DAILY [facility] Protocol Empagliflozin 10 mg 03/27/24 10:00 Empagliflozin 10 Mg Tablet PO DAILY ILEANA Ferrous Sulfate 325 mg 03/26/24 22:00 03/26/24 23:42 Ferrous Sulfate 325 Mg Tablet PO 325 mg QHS ILEANA Administration Finasteride 5 mg 03/27/24 12:00 Finasteride 5 Mg Tablet PO 1200 ILEANA Furosemide 80 mg 03/27/24 10:00 Furosemide 80 Mg Tablet PO DAILY [facility] Protocol Isosorbide Mononitrate 30 mg 03/27/24 10:00 Isosorbide Mononitrate 30 Mg Tablet PO DAILY [facility] Protocol Levothyroxine Sodium 50 mcg 03/27/24 06:00 03/27/24 06:41 Levothyroxine 50 Mcg Tablet PO 50 mcg DAILY@0600 ILEANA Administration Magnesium Chloride 128 mg 03/26/24 22:00 03/26/24 23:41 Magnesium Chloride 64 Mg Delay Rel.Tablet PO 128 mg BID ILEANA Administration Magnesium Citrate 300 ml 03/26/24 17:34 Magnesium Citrate 300 Ml PO X1 PRN Constipation Metoprolol Tartrate 12.5 mg 03/26/24 22:00 03/26/24 23:44 Metoprolol Tartrate 25 Mg Tablet PO 12.5 mg BID ILEANA Administration Protocol Multivitamins 1 cap 03/26/24 22:00 03/26/24 23:40 Vitamin B Comp W-C Capsule PO 1 cap BID [facility] Administration Nitroglycerin 0.4 mg 03/26/24 17:59 Nitroglycerin (Inpatient Use) 0.4 Mg Tab.Subl SL Q5M PRN CARDIAC/CHEST PAIN Pantoprazole Sodium 40 mg 03/26/24 22:00 03/26/24 23:43 Pantoprazole Sodium 40 Mg Tablet PO 40 mg BID ILEANA Administration Potassium Chloride 20 meq 03/26/24 22:00 03/27/24 06:41 Potassium Chloride Oral Tablet 20 Meq PO 20 meq TID ILEANA Administration Ranolazine 500 mg 03/26/24 22:00 03/26/24 23:42 Ranolazine 500 Mg Tablet PO 500 mg BID ILEANA Administration Senna/Docusate Sodium 1 tablet 03/26/24 22:00 03/26/24 23:41 Senna/Docusate Sodium 1 Tablet PO 1 tablet BID ILEANA Administration Sodium Chloride 10 - 40 ml 03/26/24 17:28 0.9% Saline Lock 10 Ml Syringe IV UD PRN SALINE FLUSH Tamsulosin HCl 0.4 mg 03/26/24 18:00 03/26/24 18:47 Tamsulosin Hcl 0.4 Mg Capsule PO 0.4 mg BID@0830,1730 [facility] Administration Trazodone HCl 25 mg 03/26/24 22:00 03/26/24 23:43 Trazodone 50 Mg Tablet PO 25 mg QHS [facility] Administration Tuberculin PPD 0.1 ml 03/27/24 10:00 Tuberculin,Purif.Prot.Deriv. 50 Tu/Ml Vial ID 03/27/24 10:01 X1 ONE Tuberculin PPD 0.1 ml 04/03/24 10:00 Tuberculin,Purif.Prot.Deriv. 50 Tu/Ml Vial ID 04/03/24 10:01 X1 ONE Problem List Acute kidney injury (Acute) COPD (chronic obstructive pulmonary disease) (Chronic) Acute HFrEF (heart failure with reduced ejection fraction) (Acute) GERD (gastroesophageal reflux disease) (Acute) Atrial fibrillation (Acute) Coronary artery disease (Acute) BPH (benign prostatic hyperplasia) (Acute) Debility (Acute) Allergic rhinitis (Acute) Hypothyroidism (Acute) Vital Signs Temp Pulse Resp BP Pulse Ox O2 Del Method O2 Flow Rate 97.2 F L 75 19 H 114/76 92 Nasal Cannula 2 03/26/24 17:51 03/26/24 23:44 03/26/24 17:51 03/26/24 23:44 03/26/24 17:51 03/26/24 18:00 03/26/24 18:00 Oxygen Flow Rate (L/min) 2 Oxygen Delivery Method Nasal Cannula Weight: 59.239 kg Body Mass Index (BMI) 19.8 Sodium 142 mmol/L (136-145) 03/27/24 05:26 Potassium 4.3 mmol/L (3.5-5.1) 03/27/24 05:26 Chloride 104 mmol/L (98-107) 03/27/24 05:26 Carbon Dioxide 31.0 mmol/L (21.0-32.0) 03/27/24 05:26 Anion Gap 7 (5-15) 03/27/24 05:26 BUN 53 mg/dL (7-18) H 03/27/24 05:26 Creatinine 3.00 mg/dL (0.70-1.30) H 03/27/24 05:26 Est GFR (MDRD) Af Amer 26 mL/min (>60) L 03/27/24 05:26 Est GFR (MDRD) Non-Af 21 mL/min (>60) L 03/27/24 05:26 BUN/Creatinine Ratio 17.7 RATIO (10-20) 03/27/24 05:26 Glucose 92 mg/dL (74-106) 03/27/24 05:26 Assessment/Plan: 1. Pain: acetaminophen 1000mg PO Q6H PRN pain 1-10. Resident has not had any PRN doses. Please continue to monitor for increased pain and PRN usage. 2. Bowel: senna/docusate 1T PO BID, bisacodyl 10mg RC daily PRN constipation and magnesium citrate 300mL PO x1 PRN constipation. Resident has not had any PRN doses. Please continue to monitor for constipation and PRN usage. Last documented bowel movement 03/26/24. 3. Atrial fibrillation/acute HFrEF/CAD: metoprolol tartrate 12.5mg PO BID, diltiazem CD 120mg PO daily, amiodarone 100mg PO BID, isosorbide mononitrate 30mg PO daily, ranolazine 500mg PO BID, empagliflozin 10mg PO daily, furosemide 80mg PO daily, apixaban 2.5mg PO BID and nitroglycerin 0.4mg SL Q5M PRN chest pain. Resident has not used and PRN doses. Please continue to monitor HR (last 75), BP (last 114/76), potassium (last 4.3mmol/L), sodium (last 142 mmol/L), chest pain, PRN usage, hemoglobin A1c (last 5.2%), S/S of bleeding, swelling and hemoglobin (last 10.4g/dL). 4. Iron deficiency anemia: ferrous sulfate 325mg PO QHS and ascorbic acid 500mg PO BID. Please continue to monitor iron studies (last 07/22/23), hemoglobin, constipation and dark stools. 5. Hypothyroidism: levothyroxine 50mcg PO daily. Please continue to monitor TSH (last 03/26/24) and S/S of hypo/hyperhtyroidism. 6. GERD: pantoprazole 40mg PO BID. Please continue to monitor for S/S of GERD and diarrhea (BEERs medication). 7. BPH: finasteride 5mg PO daily and tamsulosin 0.4mg PO BID. Please continue to monitor for S/S of BPH, GI side effects and BP. 8. Hypokalemia/hypomagnesemia: potassium chloride 20mEq PO TID and magnesium chloride 128mg PO BID. Please continue to monitor potassium levels and magnesium (last 2.3 03/23/24). 9. Leg cramps/vitamin D deficiency: vitamin B complex 1C PO BID and cholecalciferol 25mcg PO QHS. Please continue to monitor vitamin D levels (last 12/23/23). Assessment/Plan for indications treated with psychotropic medications: 1. Insomnia: trazodone 25mg PO QHS. Please consider GDR by 08/2024 if clinically appropriate. Thanks. Please continue to monitor for excessive sedation and headache. Medical chart and medication regimen reviewed. The following medication irregularities or issues were identified: 1. Trazodone 25mg PO QHS. Please consider GDR by 08/2024 if clinically appropriate. Thanks. Date Date of Note:: 03/27/24 Documented by User: Dr. Marcus Samuel MD 03/27/24 08:23 TCU RX Drug Regimen Review Provider Comments Provider responsibility Provider Comments to Recommendations by Pharmacy: Agree
[2024-03-27] MEDS: Tamsulosin HCl 0.4 MG Capsule PO ×2 (08:27→17:11)
[2024-03-27] MEDS: Isosorbide Mononitrate 30 MG Tablet PO (08:27)
[2024-03-27] MEDS: APIXABAN 2.5 MG TABLET (WCH) PO ×2 (08:27→21:51)
[2024-03-27] MEDS: dilTIAZem CD 120 MG Capsule PO (08:28)
[2024-03-27] MEDS: Pantoprazole Sodium 40 MG Tablet PO ×2 (08:28→21:52)
[2024-03-27] MEDS: Amiodarone 200 MG Tablet 100 MG PO ×2 (08:28→21:52)
[2024-03-27] MEDS: Metoprolol Tartrate 25 MG Tablet 12.5 MG PO ×2 (08:28→21:51)
[2024-03-27] MEDS: Ranolazine 500 MG Tablet PO ×2 (08:29→21:52)
[2024-03-27] MEDS: Vitamin B Comp W-C Capsule 1 CAP PO ×2 (08:29→21:52)
[2024-03-27] MEDS: Empagliflozin 10 MG Tablet PO (08:29)
[2024-03-27] MEDS: Senna/Docusate Sodium 1 Tablet PO ×2 (08:29→21:52)
[2024-03-27] MEDS: Ascorbic Acid 500 MG Tablet PO ×2 (08:29→21:51)
[2024-03-27] MEDS: Furosemide 80 MG Tablet PO (08:29)
[2024-03-27] MEDS: Magnesium Chloride 64 MG Delay Rel.Tablet 128 MG PO ×2 (08:29→21:51)
[2024-03-27] MEDS: Tuberculin,Purif.prot.deriv. 50 TU/ML Vial 0.1 ML ID (08:35)
[2024-03-27] MEDS: Glycerin/Hypromellose/PEG400 15 ml Bottle 1 DRP EACH EYE ×2 (08:38→21:57)
[2024-03-27] MEDS: Finasteride 5 MG Tablet PO (12:56)
[2024-03-27] MEDS: traZODone 50 MG Tablet 25 MG PO (21:51)
[2024-03-27] MEDS: Cholecalciferol (VIT D3) 25 MCG TABLET (1,000 UNITS) PO (21:52)
[2024-03-27] MEDS: Ferrous Sulfate 325 MG Tablet PO (21:52)
[2024-03-28] VITALS (7 sets, daily range): BP systolic 112–126; BP diastolic 65–74; PULSE 77–78; RESP 18; TEMP 36.3; O2SAT 97–99; BMI 20.2
[2024-03-28] MEDS: Potassium Chloride Oral Tablet 20 MEQ PO ×2 (05:41→20:33)
[2024-03-28] MEDS: Levothyroxine 50 MCG Tablet PO (05:41)
[2024-03-28] MEDS: Glycerin/Hypromellose/PEG400 15 ml Bottle 1 DRP EACH EYE ×2 (05:43→16:47)
[2024-03-28 06:05] LABS: Anion Gap 7 (5-15); BUN 56 mg/dL (7-18); BUN/Creat Ratio 18.6 RATIO (10-20); Calcium,Total 8.8 mg/dL (8.5-10.1); Chloride 106 mmol/L (98-107); Creatinine, Serum 3.01 mg/dL (0.70-1.30); EST Glomerular Filtration Rate 21 mL/min (>60); Est Glom Filt Rate - Afr Amer 26 mL/min (>60); Estimated Creatinine Clearance 16.27 ml/min; Glucose 96 mg/dL (74-106); Potassium 4.2 mmol/L (3.5-5.1); Sodium Level 139 mmol/L (136-145)
[2024-03-28] MEDS: Vitamin B Comp W-C Capsule 1 CAP PO ×2 (09:39→20:31)
[2024-03-28] MEDS: Tamsulosin HCl 0.4 MG Capsule PO ×2 (09:39→16:42)
[2024-03-28] MEDS: Isosorbide Mononitrate 30 MG Tablet PO (09:40)
[2024-03-28] MEDS: Amiodarone 200 MG Tablet 100 MG PO ×2 (09:40→20:31)
[2024-03-28] MEDS: dilTIAZem CD 120 MG Capsule PO (09:40)
[2024-03-28] MEDS: APIXABAN 2.5 MG TABLET (WCH) PO (09:40)
[2024-03-28] MEDS: Empagliflozin 10 MG Tablet PO (09:40)
[2024-03-28] MEDS: Senna/Docusate Sodium 1 Tablet PO ×2 (09:41→20:36)
[2024-03-28] MEDS: Magnesium Chloride 64 MG Delay Rel.Tablet 128 MG PO ×2 (09:41→20:35)
[2024-03-28] MEDS: Metoprolol Tartrate 25 MG Tablet 12.5 MG PO ×2 (09:41→20:34)
[2024-03-28] MEDS: Furosemide 80 MG Tablet PO (09:41)
[2024-03-28] MEDS: Ranolazine 500 MG Tablet PO ×2 (09:41→20:36)
[2024-03-28] MEDS: Ascorbic Acid 500 MG Tablet PO ×2 (09:41→20:37)
[2024-03-28] MEDS: Pantoprazole Sodium 40 MG Tablet PO ×2 (09:41→20:35)
--- NOTE | 2024-03-28 10:38 | NURSING ---
pt sister n law updated along with pt regarding a positive covid case on floor
--- NOTE | 2024-03-28 11:44 | NURSING ---
Addendum entered by Jeannie Bonilla 03/28/24 12:02: dr samuel returned call ,new order for po compazine PRN Original Note: pt noted to have bleeding external hemorrhoid after small dark BM. pt c/o nausea from dizzyness, will update Dr Samuel. pt asking for medication to help with nausea I took something for it over on the other unit
--- NOTE | 2024-03-28 12:01 | NURSING ---
Generalist Note; Activity Asset: Oscar Mcgregor has returned to TCU for continued therapy. He remains independent in his choice of daily in room and group activities. He prefers to stay in his room and read, watch tv, visit with family and friends. He welcomes visit with the manager staffing and therapy dog when available. Staff will encourage social activities, remind him of daily activities and respect his right to say no.
[2024-03-28] MEDS: proCHLORPERazine 5 MG Tablet 10 MG PO (12:19)
--- NOTE | 2024-03-28 15:30 | CHAPLAIN ---
Type of Pastoral Visit _x__ Initial Visit ___ Follow-up Visit ___ On-call Visit ___ General Patient Visit ___ Spiritual Assessment ___ Family Conference ___ Bereavement ___ Rapid Response ___ Code Blue ___ Other (describe below) Pastoral Care Referral From _x__ Patient ___ Family ___ Nurse ___ Physician ___ Cloth Tester ___ Fence Laborer ___ Other (describe below) Sacrament/Intervention _x__ Active listening ___ Anointing ___ Uatsdin ___ Bereavement ___ Communion _x__ [place] exploration ___ _x__ Life review _x__ Prayer ___ Reconciliation ___ Sacrament of Sick _x__ Supportive presence ___ Wedding ___ Other (describe below) Pastoral Comments patient admits that today has not been an especially good day but does state that he is getting some better; pt acknowledges the of two wives and the loss of his job of 30 years at [employer] which were disappointments he has had to deal with; pt states that he is a person of jerica and believes that God has helped him in life and credits God for what he has; pt is currently without a jer[place] community do to too many changes at my old [employer] and I'll try to find a new [employer] if I am able to get out more; pt engages in conversation easily and asks for a prayer for his recovery and getting back home; pt expresses thanks for the visit of support
--- NOTE | 2024-03-28 17:17 | CASEMGMT ---
Social Work SW met with patient to complete initial assessment. Pt known to this worker from previous stay. Verified contacts. Pt confirmed code status as DNR-CCA, WITH intubation. SW requested family provide copies of advanced directives. Educated to Medicare benefit and copay coverage. Pt's goal is to return home alone. SW will continue to follow for DC planning. Roya Sarabia, NAUN SENIOR BUSINESS ARCHITECT
[2024-03-28] MEDS: traZODone 50 MG Tablet 25 MG PO (20:32)
[2024-03-28] MEDS: Ferrous Sulfate 325 MG Tablet PO (20:33)
[2024-03-28] MEDS: Cholecalciferol (VIT D3) 25 MCG TABLET (1,000 UNITS) PO (20:37)
[2024-03-28] MEDS: Hydrocortisone 25 MG Suppository RC (20:39)
[2024-03-29] VITALS (8 sets, daily range): BP systolic 106–125; BP diastolic 70–77; PULSE 75–77; RESP 16–17; TEMP 36.4; O2SAT 96–99; BMI 20.2
[2024-03-29] MEDS: Potassium Chloride Oral Tablet 20 MEQ PO ×3 (05:50→21:45)
[2024-03-29] MEDS: Levothyroxine 50 MCG Tablet PO (05:50)
[2024-03-29] MEDS: Tamsulosin HCl 0.4 MG Capsule PO ×2 (09:29→17:29)
[2024-03-29] MEDS: dilTIAZem CD 120 MG Capsule PO (09:29)
[2024-03-29] MEDS: Isosorbide Mononitrate 30 MG Tablet PO (09:30)
[2024-03-29] MEDS: Vitamin B Comp W-C Capsule 1 CAP PO ×2 (09:30→21:46)
[2024-03-29] MEDS: Pantoprazole Sodium 40 MG Tablet PO ×2 (09:31→21:47)
[2024-03-29] MEDS: Metoprolol Tartrate 25 MG Tablet 12.5 MG PO ×2 (09:31→21:47)
[2024-03-29] MEDS: Furosemide 80 MG Tablet PO (09:31)
[2024-03-29] MEDS: Empagliflozin 10 MG Tablet PO (09:31)
[2024-03-29] MEDS: Magnesium Chloride 64 MG Delay Rel.Tablet 128 MG PO ×2 (09:32→21:45)
[2024-03-29] MEDS: Senna/Docusate Sodium 1 Tablet PO ×2 (09:32→21:47)
[2024-03-29] MEDS: Ascorbic Acid 500 MG Tablet PO ×2 (09:32→21:49)
[2024-03-29] MEDS: Amiodarone 200 MG Tablet 100 MG PO ×2 (09:32→21:48)
[2024-03-29] MEDS: Ranolazine 500 MG Tablet PO ×2 (09:32→21:46)
[2024-03-29] MEDS: Finasteride 5 MG Tablet PO (11:53)
--- NOTE | 2024-03-29 15:13 | PCM.PN.BLA ---
Progress Note attempted to see. patient was occupied. chart reviewed. he is known to us from previous admissions. CKD 4. Cr fluctuates between 2.5 to 3.0. current cr 3.0. full consult to follow.
[2024-03-29] MEDS: Hydrocortisone 25 MG Suppository RC (19:46)
[2024-03-29] MEDS: traZODone 50 MG Tablet 25 MG PO (21:46)
[2024-03-29] MEDS: Ferrous Sulfate 325 MG Tablet PO (21:49)
[2024-03-29] MEDS: Cholecalciferol (VIT D3) 25 MCG TABLET (1,000 UNITS) PO (21:50)
[2024-03-30] MEDS: Acetaminophen 500 MG Tablet 1000 MG PO (04:53)
[2024-03-30] MEDS: MENTHOL 226.8 GM JAR 1 APPLIC TOPICAL ×2 (04:54→20:30)
[2024-03-30] MEDS: Potassium Chloride Oral Tablet 20 MEQ PO ×3 (04:59→20:23)
[2024-03-30] MEDS: Levothyroxine 50 MCG Tablet PO (04:59)
[2024-03-30 05:11] VITALS: BMI 20.2
[2024-03-30] MEDS: proCHLORPERazine 5 MG Tablet 10 MG PO ×2 (07:18→17:45)
[2024-03-30 08:34] VITALS: O2SAT 98
[2024-03-30] MEDS: Tamsulosin HCl 0.4 MG Capsule PO ×2 (09:49→17:45)
[2024-03-30] MEDS: Vitamin B Comp W-C Capsule 1 CAP PO ×2 (09:49→20:23)
[2024-03-30] MEDS: Ascorbic Acid 500 MG Tablet PO ×2 (09:49→20:20)
[2024-03-30] MEDS: dilTIAZem CD 120 MG Capsule PO (09:50)
[2024-03-30 09:51] VITALS: BP 133/80; PULSE 75
[2024-03-30] MEDS: Amiodarone 200 MG Tablet 100 MG PO ×2 (09:51→20:23)
[2024-03-30] MEDS: Metoprolol Tartrate 25 MG Tablet 12.5 MG PO ×2 (09:51→20:31)
[2024-03-30] MEDS: Magnesium Chloride 64 MG Delay Rel.Tablet 128 MG PO ×2 (09:52→20:20)
[2024-03-30] MEDS: Empagliflozin 10 MG Tablet PO (09:52)
[2024-03-30] MEDS: Furosemide 80 MG Tablet PO (09:52)
[2024-03-30] MEDS: Isosorbide Mononitrate 30 MG Tablet PO (09:53)
[2024-03-30] MEDS: Pantoprazole Sodium 40 MG Tablet PO ×2 (09:55→20:19)
[2024-03-30] MEDS: Senna/Docusate Sodium 1 Tablet PO ×2 (09:55→20:21)
[2024-03-30] MEDS: Ranolazine 500 MG Tablet PO ×2 (09:55→20:19)
[2024-03-30 10:08] VITALS: BP 133/80; PULSE 75
--- NOTE | 2024-03-30 10:22 | CASEMGMT ---
Social Work BIMS () and PHQ-2 () completed for MDS assessment. Roya Sarabia MSW [employer] TECHNICIAN
--- NOTE | 2024-03-30 12:38 | CON.PCM.RE_ITS ---
Assessment & Plan Assessment/Plan (1) CKD (chronic kidney disease) stage 4, GFR 15-29 ml/min: (2) Acute HFrEF (heart failure with reduced ejection fraction): PLAN: Plan This is a very pleasant 83-year-old male with past medical history significant for hypertension, COPD, pulmonary hypertension, heart failure reduced EF, ALVARADO on CPAP, severe pulmonary hypertension, A-fib, coronary artery disease, BPH on Flomax, hyperlipidemia, history of GI bleed followed by Dr. Hodges, CKD stage IV who is currently in TCU for therapy after recent hospitalization where he was admitted to the hospital for acute hypoxia secondary to acute decompensated heart failure. Echo from March 21, 2024: Left atrium severely enlarged, EF 53%, moderate pulmonary hypertension, pulmonary artery systolic pressure 64 mmHg, mild to moderate mitral valve insufficiency. He was also seen for GI for difficulty swallowing. Nephrology consulted in view of history of CKD stage IV. Patient is known to our group. He has chronic kidney disease stage IV with baseline creatinine now ranging around 2.5 to 3 mg/dL. Reviewed recent serum creatinine trends during this hospitalization and creatinine has been ranging around low 3 mg/dL. Last labs on March 28 serum creatinine 3.01 mg/dL. Overall renal function is stable and appears near patient's baseline. Patient's volume status appears to be near euvolemic. Given patient's history of heart failure, severe pulmonary hypertension may need to keep serum creatinine levels slightly higher to keep patient volume compensated. No acute indication for STUDENT FINANCE SPECIALIST. Continue on furosemide 80 mg daily. Last chest x-ray from March 21 showed no evidence of acute cardiopulmonary disease, no effusion or edema. Potassium and bicarb normal. Blood pressures acceptable. Further orders forthcoming as hospitalization evolves. Will continue to follow patient, patient does not need daily labs. Thank you for allowing us to participate in the care of Mr. Hansen. HPI Consult Data Date of Consult: 03/30/24 HPI Narrative HPI Narrative: RICHIE HANSEN, is a 83 M with past medical history significant for hypertension, COPD, pulmonary hypertension, heart failure reduced EF, ALVARADO on CPAP, severe pulmonary hypertension, BPH on Flomax, hyperlipidemia, CKD stage IV who is currently in TCU for therapy after recent hospitalization where he was admitted to the hospital for acute hypoxia secondary to acute decompensated heart failure with reduced EF. Nephrology consulted in view of history of CKD. Patient is sitting in chair, denies any complaints. Reports good appetite. Denies any nausea, vomiting or recent diarrhea. Denies any difficulty breathing. Denies any edema. Denies any issues with urinating. [facility] Medical History (Updated 03/30/24 @ 12:42 by Claudia Paul NP-Yvon) Acute kidney injury Hypotension Abnormal abdominal ultrasound Persistent atrial fibrillation Hearing loss, left Hearing loss, right Anxiety Chronic pain Rheumatoid arthritis COPD (chronic obstructive pulmonary disease) Irregular heart beat Hypertension Hypothyroidism Hiatal hernia Acute constipation Acute exacerbation of chronic low back pain Wears glasses Thyroid disease Ambulates with cane Arthritis History of renal disease Anemia High cholesterol Easy bruising Excessive bleeding History of leukemia Back pain Difficulty chewing History of diverticulitis Gastric reflux Sleep apnea History of pain when walking History of edema History of echocardiogram History of stress test Cardiology follow-up encounter History of heart attack Nausea and vomiting Chronic anemia Diarrhea Colitis Sleep apnea Acute kidney injury superimposed on chronic kidney disease On amiodarone therapy Elevated LFTs Thoracic aortic aneurysm (TAA) Chronic heart failure with preserved ejection fraction (HFpEF) Nonrheumatic mitral (valve) insufficiency Atypical atrial flutter (12/2020) Elevated liver enzymes Debility Dysphagia Osteoarthritis History of colon polyps Cancer Kidney stones Kidney disease Non-smoker CPAP (continuous positive airway pressure) dependence Atrial fibrillation Myocardial infarct Chronic renal insufficiency Acute gastrointestinal bleeding Chronic kidney disease Benign prostatic hyperplasia Stage 3b chronic kidney disease GI bleed (2012) Non-rheumatic tricuspid valve insufficiency Secondary pulmonary arterial hypertension Essential (primary) hypertension BPH (benign prostatic hyperplasia) History of hyperthyroidism Paroxysmal atrial fibrillation 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 heart disease of [place] coronary artery without angina pectoris HLD (hyperlipidemia) Home Medications ?Medication ?Instructions ?Recorded ?Last Taken ?Type tamsulosin 0.4 mg capsule 0.4 mg PO BID PROSTATE 11/18/21 03/19/24 History vitamin B complex 1 cap PO BID SUPPLEMENT 05/01/22 03/19/24 History ascorbic acid (vitamin C) 500 mg 500 mg PO BID SUPPLEMENT 07/20/22 03/19/24 History tablet finasteride 5 mg tablet 5 mg PO 1200 PROSTATE 08/05/22 03/19/24 History cholecalciferol (vitamin D3) 25 1,000 unit PO QHS SUPPLEMENT 02/19/23 03/19/24 History mcg (1,000 unit) capsule (Vitamin D3) empagliflozin 10 mg tablet 10 mg PO DAILY DIABTETES #0 tabs 07/22/23 03/19/24 Rx (Jardiance) nitroglycerin 0.4 mg sublingual 0.4 mg sublingual Q5M PRN 07/22/23 Unknown Rx tablet Cardiac/Chest Pain #0 tabs ranolazine 500 mg tablet,extended 500 mg PO BID CHEST PAIN #60 tabs 02/03/24 03/15/24 Rx release,12 hr clonidine HCl 0.1 mg tablet 0.05 - 0.1 mg PO DAILY PRN BLOOD 02/28/24 03/15/24 History PRESSURE isosorbide mononitrate 30 mg 30 mg PO DAILY CHEST PAIN 02/28/24 03/19/24 History tablet,extended release 24 hr magnesium chloride 64 mg 128 mg PO BID SUPPLEMENT 02/28/24 03/19/24 History (magnesium chloride) tablet,delayed release (Mag 64) metoprolol tartrate 25 mg tablet 12.5 mg PO BID BLOOD PRESSURE 02/28/24 03/19/24 History pantoprazole 40 mg tablet,delayed 40 mg PO BID GERD 02/28/24 03/19/24 History release potassium chloride 20 mEq 20 meq PO TID SUPPLEMENT 02/28/24 03/19/24 History tablet,extended release(part/cryst) trazodone 50 mg tablet 25 mg PO QHS INSOMNIA 02/28/24 03/19/24 History amiodarone 100 mg tablet 100 mg PO BID HEART #180 tabs 02/29/24 03/19/24 Rx hydralazine 50 mg tablet 50 mg PO 4X/DAY PRN BLOOD PRESSURE 03/16/24 03/15/24 History diltiazem HCl 120 mg 120 mg PO DAILY BLOOD PRESSURE 03/20/24 Unknown History capsule,extended release 24 hr ferrous sulfate 325 mg (65 mg 325 mg PO QHS ANEMIA 03/20/24 03/19/24 History iron) tablet (Feosol) levothyroxine 50 mcg tablet 50 mcg PO DAILY THYROID 03/20/24 03/19/24 History apixaban 2.5 mg tablet (Eliquis) 2.5 mg PO BID Anticoagulant #60 03/24/24 Unknown Rx tabs furosemide 80 mg tablet 80 mg PO DAILY Diuretic #40 tabs 03/24/24 Unknown Rx famotidine 20 mg tablet 20 mg PO DAILY GERD #0 tabs 03/26/24 Unknown Rx loratadine 10 mg tablet (Claritin) 10 mg PO QODAY ALLERGIES #0 tabs 03/26/24 03/19/24 Rx Allergy/AdvReac Type Severity Reaction Status Date / Time diclofenac Allergy rash Verified 03/20/24 12:08 prednisone Allergy Rash Verified 03/20/24 12:08 Family History Father Cancer Prostate cancer Mother Hypertension Sister Hypertension Surgical History History of back surgery History of cardiac catheterization History of esophagogastroduodenoscopy (EGD) History of cardioversion (06/18/19) History of radiofrequency ablation procedure for cardiac arrhythmia (11/11/11) History of electrophysiologic study (08/08/00) History of left heart catheterization (07/17/12) History of hemorrhoidectomy History of Zenaida fundoplication History of coronary artery stent placement (08/04/00) History of hernia repair History of back surgery Social History household members: none Smoking Status: Never smoker alcohol intake: never substance use type: does not use caffeine: No ROS ROS Narrative As in HPI and past medical history Physical Exam Narrative Alert and orient x 3, no apparent distress S1, S2, RRR Lung sounds clear anteriorly. No rales, rhonchi noted Abdomen soft, nontender No edema Lab / Micro Data 03/27/24 05:26 03/28/24 05:30
[2024-03-30] MEDS: Finasteride 5 MG Tablet PO (12:47)
[2024-03-30] MEDS: Hydrocortisone 25 MG Suppository RC (20:15)
[2024-03-30] MEDS: traZODone 50 MG Tablet 25 MG PO (20:21)
[2024-03-30] MEDS: Ferrous Sulfate 325 MG Tablet PO (20:27)
[2024-03-30] MEDS: Cholecalciferol (VIT D3) 25 MCG TABLET (1,000 UNITS) PO (20:28)
[2024-03-30 20:31] VITALS: BP 126/75; PULSE 88
[2024-03-31 05:20] VITALS: BMI 20.2
[2024-03-31] MEDS: Levothyroxine 50 MCG Tablet PO (05:47)
[2024-03-31] MEDS: Potassium Chloride Oral Tablet 20 MEQ PO ×3 (05:47→21:10)
[2024-03-31] MEDS: Vitamin B Comp W-C Capsule 1 CAP PO ×2 (07:57→21:07)
[2024-03-31] MEDS: Tamsulosin HCl 0.4 MG Capsule PO ×2 (07:57→17:52)
[2024-03-31] MEDS: dilTIAZem CD 120 MG Capsule PO (07:58)
[2024-03-31] MEDS: Isosorbide Mononitrate 30 MG Tablet PO (07:58)
[2024-03-31] MEDS: Amiodarone 200 MG Tablet 100 MG PO ×2 (07:58→21:09)
[2024-03-31] MEDS: Furosemide 80 MG Tablet PO (07:59)
[2024-03-31] MEDS: Empagliflozin 10 MG Tablet PO (07:59)
[2024-03-31] MEDS: Pantoprazole Sodium 40 MG Tablet PO ×2 (08:00→21:11)
[2024-03-31] MEDS: Magnesium Chloride 64 MG Delay Rel.Tablet 128 MG PO ×2 (08:00→21:09)
[2024-03-31] MEDS: Ranolazine 500 MG Tablet PO ×2 (08:00→21:12)
[2024-03-31 08:01] VITALS: BP 145/89; PULSE 76
[2024-03-31] MEDS: Senna/Docusate Sodium 1 Tablet PO ×2 (08:01→21:12)
[2024-03-31] MEDS: Metoprolol Tartrate 25 MG Tablet 12.5 MG PO ×2 (08:01→21:07)
[2024-03-31] MEDS: Ascorbic Acid 500 MG Tablet PO ×2 (08:01→21:13)
[2024-03-31 08:33] VITALS: O2SAT 96
[2024-03-31] MEDS: Finasteride 5 MG Tablet PO (12:56)
--- NOTE | 2024-03-31 13:20 | PN.RENAL_ITS ---
Subjective Subjective Follow-up chronic kidney disease No acute events overnight Breathing is okay, tolerating p.o. No issues urinating Objective Data Objective Data Vital Signs: Vital Signs Temp Pulse Resp BP Pulse Ox O2 Del Method O2 Flow Rate 97.5 F L 76 16 145/89 H 96 Nasal Cannula 2 03/29/24 16:00 03/31/24 08:01 03/29/24 21:59 03/31/24 08:01 03/31/24 08:33 03/31/24 08:33 03/31/24 09:25 Oxygen Flow Rate (L/min) 2 Oxygen Delivery Method Nasal Cannula Weight: 60.464 kg Body Mass Index (BMI) 20.2 Intake & Output: Intake and Output for Last 24 Hours 03/29/24 03/30/24 03/31/24 23:59 23:59 23:59 Intake Total 1480 / 1480 870 / 870 600 / 600 Output Total 400 / 400 650 / 650 275 / 275 Balance 1080 / 1080 220 / 220 325 / 325 Lab / Micro Data 03/27/24 05:26 03/28/24 05:30 Micro: Microbiology 03/29/24 05:55 Nasal Secretion SARS-CoV-2 Antigen (Rapid) - Final Physical Exam Narrative Pleasant alert thin On nasal cannula Breath sounds are equal and clear S1-S2 regular No peripheral edema Assessment & Plan Assessment/Plan (1) CKD (chronic kidney disease) stage 4, GFR 15-29 ml/min: (2) Acute HFrEF (heart failure with reduced ejection fraction): PLAN: Plan This is a very pleasant 83-year-old male with past medical history significant for hypertension, COPD, pulmonary hypertension, heart failure reduced EF, ALVARADO on CPAP, severe pulmonary hypertension, A-fib, coronary artery disease, BPH on Flomax, hyperlipidemia, history of GI bleed followed by Dr. Hodges, CKD stage IV who is currently in TCU for therapy after recent hospitalization where he was admitted to the hospital for acute hypoxia secondary to acute decompensated heart failure. Echo from March 21, 2024: Left atrium severely enlarged, EF 53%, moderate pulmonary hypertension, pulmonary artery systolic pressure 64 mmHg, mild to moderate mitral valve insufficiency. He was also seen for GI for difficulty swallowing. Nephrology consulted in view of history of CKD stage IV. Patient is known to our group. He has chronic kidney disease stage IV with baseline creatinine now ranging around 2.5 to 3 mg/dL. -Currently euvolemic, blood pressure stable -No need for IV fluids -[facility] on Tuesday Thank you please call [phone] with any concerns
[2024-03-31 14:22] VITALS: BP 104/65; PULSE 77; RESP 12; TEMP 36.7; O2SAT 97
[2024-03-31 21:05] VITALS: BP 129/82; PULSE 78; O2SAT 96
[2024-03-31 21:07] VITALS: BP 129/82; PULSE 78
[2024-03-31] MEDS: Ferrous Sulfate 325 MG Tablet PO (21:11)
[2024-03-31] MEDS: traZODone 50 MG Tablet 25 MG PO (21:11)
[2024-03-31] MEDS: Cholecalciferol (VIT D3) 25 MCG TABLET (1,000 UNITS) PO (21:13)
[2024-04-01] MEDS: Potassium Chloride Oral Tablet 20 MEQ PO ×3 (05:14→21:09)
[2024-04-01] MEDS: Levothyroxine 50 MCG Tablet PO (05:14)
[2024-04-01 05:37] VITALS: BMI 20.3
[2024-04-01 08:03] VITALS: O2SAT 94
[2024-04-01 08:50] VITALS: BP 122/78; PULSE 72; RESP 18; TEMP 36.4; O2SAT 98
[2024-04-01] MEDS: Tamsulosin HCl 0.4 MG Capsule PO ×2 (08:54→17:44)
[2024-04-01] MEDS: Magnesium Chloride 64 MG Delay Rel.Tablet 128 MG PO ×2 (08:54→21:11)
[2024-04-01] MEDS: Furosemide 80 MG Tablet PO (08:54)
[2024-04-01] MEDS: Pantoprazole Sodium 40 MG Tablet PO ×2 (08:54→21:11)
[2024-04-01] MEDS: Vitamin B Comp W-C Capsule 1 CAP PO ×2 (08:54→21:07)
[2024-04-01] MEDS: Amiodarone 200 MG Tablet 100 MG PO ×2 (08:55→21:07)
[2024-04-01] MEDS: dilTIAZem CD 120 MG Capsule PO (08:55)
[2024-04-01] MEDS: Ascorbic Acid 500 MG Tablet PO ×2 (08:55→21:12)
[2024-04-01] MEDS: Isosorbide Mononitrate 30 MG Tablet PO (08:55)
[2024-04-01 08:56] VITALS: PULSE 72
[2024-04-01] MEDS: Ranolazine 500 MG Tablet PO ×2 (08:56→21:12)
[2024-04-01] MEDS: Metoprolol Tartrate 25 MG Tablet 12.5 MG PO ×2 (08:56→21:09)
[2024-04-01] MEDS: Empagliflozin 10 MG Tablet PO (08:57)
[2024-04-01] MEDS: Senna/Docusate Sodium 1 Tablet PO ×2 (08:57→21:12)
[2024-04-01] MEDS: proCHLORPERazine 5 MG Tablet 10 MG PO (11:41)
[2024-04-01] MEDS: Hydrocortisone 25 MG Suppository RC (11:41)
[2024-04-01] MEDS: Finasteride 5 MG Tablet PO (11:43)
[2024-04-01 15:08] VITALS: BP 100/60; PULSE 79; RESP 16; O2SAT 98
[2024-04-01] MEDS: Glycerin/Hypromellose/PEG400 15 ml Bottle 1 DRP EACH EYE ×2 (17:45→21:14)
--- NOTE | 2024-04-01 17:47 | NURSING ---
Redness noted to inferior sclera of right eye. Pt states he rubbed his eyes because they were dry. No drainage noted to eye. Administered PRN eyedrops. Pt denies discomfort and states he will not rub eyes. No further comments/complaints at this time.
[2024-04-01] MEDS: Ferrous Sulfate 325 MG Tablet PO (21:08)
[2024-04-01] MEDS: traZODone 50 MG Tablet 25 MG PO (21:08)
[2024-04-01 21:09] VITALS: BP 110/69; PULSE 76
[2024-04-01] MEDS: Cholecalciferol (VIT D3) 25 MCG TABLET (1,000 UNITS) PO (21:13)
[2024-04-01 21:19] VITALS: BP 110/69; PULSE 76; O2SAT 96
[2024-04-02] MEDS: MENTHOL 226.8 GM JAR 1 APPLIC TOPICAL ×2 (01:08→23:26)
[2024-04-02] MEDS: Levothyroxine 50 MCG Tablet PO (05:32)
[2024-04-02] MEDS: Potassium Chloride Oral Tablet 20 MEQ PO ×3 (05:33→21:22)
[2024-04-02 05:41] VITALS: BMI 20.7
[2024-04-02 06:21] VITALS: PULSE 76; O2SAT 96
--- NOTE | 2024-04-02 08:35 | NURSING ---
Screw Machine Operator Single Spindle Note; MDS for 04/02/2024 Complete
[2024-04-02] MEDS: Tamsulosin HCl 0.4 MG Capsule PO ×2 (09:00→17:16)
[2024-04-02] MEDS: Vitamin B Comp W-C Capsule 1 CAP PO ×2 (09:01→21:25)
[2024-04-02] MEDS: dilTIAZem CD 120 MG Capsule PO (09:01)
[2024-04-02] MEDS: Amiodarone 200 MG Tablet 100 MG PO ×2 (09:01→21:25)
[2024-04-02 09:03] VITALS: BP 110/60; PULSE 74
[2024-04-02] MEDS: Empagliflozin 10 MG Tablet PO (09:03)
[2024-04-02] MEDS: Metoprolol Tartrate 25 MG Tablet 12.5 MG PO ×2 (09:03→21:23)
[2024-04-02] MEDS: Furosemide 80 MG Tablet PO (09:03)
[2024-04-02] MEDS: Isosorbide Mononitrate 30 MG Tablet PO (09:03)
[2024-04-02] MEDS: Pantoprazole Sodium 40 MG Tablet PO ×2 (09:04→21:23)
[2024-04-02] MEDS: Ranolazine 500 MG Tablet PO ×2 (09:04→21:25)
[2024-04-02] MEDS: Magnesium Chloride 64 MG Delay Rel.Tablet 128 MG PO ×2 (09:04→21:22)
[2024-04-02] MEDS: Ascorbic Acid 500 MG Tablet PO ×2 (09:05→21:22)
[2024-04-02] MEDS: Senna/Docusate Sodium 1 Tablet PO ×2 (09:05→21:23)
[2024-04-02 09:28] VITALS: BP 110/60; PULSE 74
[2024-04-02] MEDS: APIXABAN 2.5 MG TABLET (WCH) PO ×2 (10:56→21:23)
[2024-04-02] MEDS: Finasteride 5 MG Tablet PO (11:14)
[2024-04-02] MEDS: Glycerin/Hypromellose/PEG400 15 ml Bottle 1 DRP EACH EYE ×3 (14:20→21:26)
[2024-04-02 16:00] VITALS: BP 102/67; PULSE 58; RESP 18; TEMP 36.6; O2SAT 98
[2024-04-02 17:20] VITALS: O2SAT 96
[2024-04-02 21:23] VITALS: BP 101/69; PULSE 76
[2024-04-02] MEDS: traZODone 50 MG Tablet 25 MG PO (21:25)
[2024-04-02] MEDS: Cholecalciferol (VIT D3) 25 MCG TABLET (1,000 UNITS) PO (21:26)
[2024-04-02] MEDS: Ferrous Sulfate 325 MG Tablet PO (21:26)
[2024-04-03] MEDS: Acetaminophen 500 MG Tablet 1000 MG PO (00:20)
[2024-04-03] MEDS: Potassium Chloride Oral Tablet 20 MEQ PO ×3 (05:37→21:28)
[2024-04-03] MEDS: Levothyroxine 50 MCG Tablet PO (05:37)
[2024-04-03 06:00] VITALS: BMI 21.5
[2024-04-03 06:11] LABS: Absolute Lymphocyte Count 1.05 X10^3/uL (0.83-4.51); Absolute Neutrophil Count 6.9 X10^3/uL (2.0-7.7); Basophil# 0.06 X10^3/uL; Basophil% 0.7 % (0-1); Eosinophil# 0.13 X10^3/uL; Eosinophils% 1.4 % (0-5); Hematocrit 28.8 % (40-54); Hemoglobin 9.8 g/dL (13.0-16.5); Lymphocyte # 1.05 X10^3/ul (0.83-4.51); Lymphocyte % 11.6 % (19-41); Mean Corpuscular Hgb 38.3 pg (27.0-32.0); Mean Corpuscular Volume 112.5 fL (80-94); Mean Platelet Vol. 10.2 fl (6.2-12.0); Monocyte# 0.85 X10^3/uL; Monocyte% 9.4 % (0-10); NRBC Flagged by Analyzer 0 % (0-5); Neutrophil # 6.87 X10^3/uL (2.7-7.7); Platelet Count 255 K/mm3 (150-450); RBC Distribution Width CV 15.3 % (11.6-14.6); RBC Distribution Width SD 64.1 fl (35.1-43.9); Red Blood Count 2.56 M/mm3 (4.6-6.2)
[2024-04-03 06:39] LABS: Anion Gap 7 (5-15); BUN 60 mg/dL (7-18); BUN/Creat Ratio 19.2 RATIO (10-20); Calcium,Total 8.3 mg/dL (8.5-10.1); Chloride 106 mmol/L (98-107); Creatinine, Serum 3.13 mg/dL (0.70-1.30); EST Glomerular Filtration Rate 20 mL/min (>60); Est Glom Filt Rate - Afr Amer 25 mL/min (>60); Estimated Creatinine Clearance 16.61 ml/min; Glucose 82 mg/dL (74-106); Potassium 4.4 mmol/L (3.5-5.1); Sodium Level 140 mmol/L (136-145)
[2024-04-03 07:36] VITALS: O2SAT 96
[2024-04-03] MEDS: Vitamin B Comp W-C Capsule 1 CAP PO ×2 (09:50→21:28)
[2024-04-03] MEDS: Tamsulosin HCl 0.4 MG Capsule PO ×2 (09:50→17:47)
[2024-04-03] MEDS: Amiodarone 200 MG Tablet 100 MG PO ×2 (09:50→21:29)
[2024-04-03 09:51] VITALS: BP 139/83; PULSE 75
[2024-04-03] MEDS: Furosemide 80 MG Tablet PO (09:51)
[2024-04-03] MEDS: APIXABAN 2.5 MG TABLET (WCH) PO ×2 (09:51→21:35)
[2024-04-03] MEDS: Isosorbide Mononitrate 30 MG Tablet PO (09:51)
[2024-04-03] MEDS: Metoprolol Tartrate 25 MG Tablet 12.5 MG PO ×2 (09:51→21:28)
[2024-04-03] MEDS: Empagliflozin 10 MG Tablet PO (09:51)
[2024-04-03] MEDS: Ascorbic Acid 500 MG Tablet PO ×2 (09:51→21:29)
[2024-04-03] MEDS: Magnesium Chloride 64 MG Delay Rel.Tablet 128 MG PO ×2 (09:51→21:28)
[2024-04-03] MEDS: dilTIAZem CD 120 MG Capsule PO (09:51)
[2024-04-03] MEDS: Pantoprazole Sodium 40 MG Tablet PO ×2 (09:52→21:27)
[2024-04-03] MEDS: Senna/Docusate Sodium 1 Tablet PO ×2 (09:52→21:28)
[2024-04-03] MEDS: Ranolazine 500 MG Tablet PO ×2 (09:52→21:29)
[2024-04-03] MEDS: Glycerin/Hypromellose/PEG400 15 ml Bottle 1 DRP EACH EYE (09:55)
[2024-04-03 10:19] VITALS: BMI 20.7
[2024-04-03] MEDS: Tuberculin,Purif.prot.deriv. 50 TU/ML Vial 0.1 ML ID (12:12)
[2024-04-03] MEDS: Finasteride 5 MG Tablet PO (12:12)
[2024-04-03 15:10] VITALS: BP 113/67; PULSE 75; RESP 15; TEMP 36.8; O2SAT 99
[2024-04-03 16:20] VITALS: O2SAT 97
[2024-04-03 21:28] VITALS: BP 107/67; PULSE 72
[2024-04-03] MEDS: traZODone 50 MG Tablet 25 MG PO (21:28)
[2024-04-03] MEDS: Cholecalciferol (VIT D3) 25 MCG TABLET (1,000 UNITS) PO (21:28)
[2024-04-03] MEDS: Ferrous Sulfate 325 MG Tablet PO (21:28)
[2024-04-03] MEDS: Hydrocortisone 25 MG Suppository RC (21:34)
[2024-04-03 22:55] VITALS: PULSE 76; RESP 14; O2SAT 97
[2024-04-04 05:19] VITALS: BMI 20.3
[2024-04-04 05:48] LABS: Hemoglobin 10.5 g/dL (13.0-16.5)
[2024-04-04] MEDS: Potassium Chloride Oral Tablet 20 MEQ PO ×3 (06:35→21:26)
[2024-04-04] MEDS: Levothyroxine 50 MCG Tablet PO (06:36)
[2024-04-04 09:55] VITALS: BP 134/82; PULSE 74
[2024-04-04] MEDS: dilTIAZem CD 120 MG Capsule PO (09:55)
[2024-04-04] MEDS: Furosemide 80 MG Tablet PO (09:55)
[2024-04-04] MEDS: Ascorbic Acid 500 MG Tablet PO ×2 (09:55→21:25)
[2024-04-04] MEDS: Metoprolol Tartrate 25 MG Tablet 12.5 MG PO ×2 (09:55→21:27)
[2024-04-04] MEDS: Isosorbide Mononitrate 30 MG Tablet PO (09:55)
[2024-04-04] MEDS: Pantoprazole Sodium 40 MG Tablet PO ×2 (09:55→21:26)
[2024-04-04] MEDS: Ranolazine 500 MG Tablet PO ×2 (09:55→21:25)
[2024-04-04] MEDS: Amiodarone 200 MG Tablet 100 MG PO ×2 (09:55→21:26)
[2024-04-04] MEDS: Vitamin B Comp W-C Capsule 1 CAP PO ×2 (09:55→21:26)
[2024-04-04] MEDS: Tamsulosin HCl 0.4 MG Capsule PO ×2 (09:55→17:49)
[2024-04-04] MEDS: APIXABAN 2.5 MG TABLET (WCH) PO ×2 (09:55→21:27)
[2024-04-04] MEDS: Magnesium Chloride 64 MG Delay Rel.Tablet 128 MG PO ×2 (09:55→21:26)
[2024-04-04] MEDS: Glycerin/Hypromellose/PEG400 15 ml Bottle 1 DRP EACH EYE ×2 (09:59→19:31)
[2024-04-04] MEDS: Senna/Docusate Sodium 1 Tablet PO ×2 (09:59→21:25)
--- NOTE | 2024-04-04 10:05 | CASEMGMT ---
Social Work IDT met with patient and MIKE for care plan meeting. Discussed patient's progress in PT/OT/SN. Educated to Medicare benefit. Provided pt/family written communication on insurance process and copay coverage during stay. Pt's goal is to return home alone at [facility]. Pt inquired about O2. SW educated to O2 qualification and currently, pt is improving and not needing the O2. SW will continue to follow for DC planning. Roya Sarabia, HOUSEKEEPING DIRECTOR PAGE DESIGNER
[2024-04-04] MEDS: proCHLORPERazine 5 MG Tablet 10 MG PO (10:29)
[2024-04-04] MEDS: Empagliflozin 10 MG Tablet PO (11:47)
[2024-04-04] MEDS: Finasteride 5 MG Tablet PO (11:47)
[2024-04-04 12:04] LABS: Bedside Glucose 138 mg/dL (74-106)
--- NOTE | 2024-04-04 13:24 | MDS.RN ---
Information for the MDS was obtained from review of the clinical record, interview of resident, staff, and direct observation of resident?s care.
[2024-04-04 13:26] VITALS: RESP 14; O2SAT 93
[2024-04-04 16:00] VITALS: BP 100/63; PULSE 76; RESP 16; TEMP 36.4; O2SAT 98
[2024-04-04] MEDS: MENTHOL 226.8 GM JAR 1 APPLIC TOPICAL (21:24)
[2024-04-04] MEDS: Cholecalciferol (VIT D3) 25 MCG TABLET (1,000 UNITS) PO (21:25)
[2024-04-04] MEDS: traZODone 50 MG Tablet 25 MG PO (21:25)
[2024-04-04 21:27] VITALS: BP 112/71; PULSE 74
[2024-04-04] MEDS: Ferrous Sulfate 325 MG Tablet PO (21:27)
[2024-04-05] MEDS: Levothyroxine 50 MCG Tablet PO (05:57)
[2024-04-05] MEDS: Potassium Chloride Oral Tablet 20 MEQ PO ×3 (05:57→22:11)
[2024-04-05 06:08] LABS: Bedside Glucose 89 mg/dL (74-106)
[2024-04-05 07:20] VITALS: O2SAT 95
--- NOTE | 2024-04-05 08:06 | NURSING ---
Addendum entered by Laura Erickson 04/05/24 11:37: Patient placed in enhanced droplet precautions at time of positive Covid test. Original Note: Received call from lab, patient tested positive for COVID. Patient family notified, patient placed into isolation, MD notified no new orders at this time. Patient notified. Therapy notified. sales account manager notified. MDS/Admissions notified.
[2024-04-05] MEDS: Tamsulosin HCl 0.4 MG Capsule PO ×2 (09:33→18:27)
[2024-04-05] MEDS: Vitamin B Comp W-C Capsule 1 CAP PO ×2 (09:33→22:11)
[2024-04-05] MEDS: Isosorbide Mononitrate 30 MG Tablet PO (09:34)
[2024-04-05] MEDS: APIXABAN 2.5 MG TABLET (WCH) PO ×2 (09:34→22:11)
[2024-04-05] MEDS: Amiodarone 200 MG Tablet 100 MG PO ×2 (09:34→22:11)
[2024-04-05] MEDS: dilTIAZem CD 120 MG Capsule PO (09:34)
[2024-04-05 09:35] VITALS: BP 111/76; PULSE 77
[2024-04-05] MEDS: Furosemide 80 MG Tablet PO (09:35)
[2024-04-05] MEDS: Empagliflozin 10 MG Tablet PO (09:35)
[2024-04-05] MEDS: Metoprolol Tartrate 25 MG Tablet 12.5 MG PO ×2 (09:35→22:35)
[2024-04-05] MEDS: Ranolazine 500 MG Tablet PO ×2 (09:37→22:12)
[2024-04-05] MEDS: Magnesium Chloride 64 MG Delay Rel.Tablet 128 MG PO ×2 (09:37→22:12)
[2024-04-05] MEDS: Ascorbic Acid 500 MG Tablet PO ×2 (09:37→22:11)
[2024-04-05] MEDS: Pantoprazole Sodium 40 MG Tablet PO ×2 (09:37→22:12)
[2024-04-05] MEDS: Senna/Docusate Sodium 1 Tablet PO ×2 (09:37→22:12)
[2024-04-05] MEDS: Glycerin/Hypromellose/PEG400 15 ml Bottle 1 DRP EACH EYE (09:38)
[2024-04-05] MEDS: proCHLORPERazine 5 MG Tablet 10 MG PO (09:58)
[2024-04-05] MEDS: Finasteride 5 MG Tablet PO (13:20)
[2024-04-05 16:08] VITALS: O2SAT 94
[2024-04-05] MEDS: traZODone 50 MG Tablet 25 MG PO (22:11)
[2024-04-05] MEDS: Ferrous Sulfate 325 MG Tablet PO (22:11)
[2024-04-05] MEDS: Cholecalciferol (VIT D3) 25 MCG TABLET (1,000 UNITS) PO (22:12)
[2024-04-05 22:35] VITALS: BP 128/76; PULSE 58
[2024-04-05 23:38] VITALS: PULSE 58; RESP 18; O2SAT 97
[2024-04-06] MEDS: proCHLORPERazine 5 MG Tablet 10 MG PO (01:58)
[2024-04-06] MEDS: Potassium Chloride Oral Tablet 20 MEQ PO ×3 (05:35→23:09)
[2024-04-06] MEDS: Levothyroxine 50 MCG Tablet PO (05:35)
[2024-04-06 06:40] LABS: Bedside Glucose 112 mg/dL (74-106)
[2024-04-06] MEDS: Ondansetron ODT 4 MG Tablet 8 MG PO (08:17)
[2024-04-06] MEDS: Tamsulosin HCl 0.4 MG Capsule PO ×2 (11:10→17:38)
[2024-04-06] MEDS: Furosemide 80 MG Tablet PO (11:11)
[2024-04-06] MEDS: Amiodarone 200 MG Tablet 100 MG PO ×2 (11:11→22:59)
[2024-04-06] MEDS: Isosorbide Mononitrate 30 MG Tablet PO (11:11)
[2024-04-06] MEDS: APIXABAN 2.5 MG TABLET (WCH) PO ×2 (11:11→22:53)
[2024-04-06] MEDS: dilTIAZem CD 120 MG Capsule PO (11:11)
[2024-04-06 11:13] VITALS: BP 146/64; PULSE 76
[2024-04-06] MEDS: Metoprolol Tartrate 25 MG Tablet 12.5 MG PO ×2 (11:13→23:11)
[2024-04-06] MEDS: Ranolazine 500 MG Tablet PO ×2 (11:13→23:09)
[2024-04-06] MEDS: Pantoprazole Sodium 40 MG Tablet PO ×2 (11:13→23:10)
[2024-04-06] MEDS: Senna/Docusate Sodium 1 Tablet PO ×2 (11:13→23:10)
[2024-04-06] MEDS: Finasteride 5 MG Tablet PO (13:56)
[2024-04-06 15:52] VITALS: O2SAT 90
[2024-04-06 16:00] VITALS: BP 146/64; PULSE 76; RESP 18; TEMP 37.7; O2SAT 97
[2024-04-06] MEDS: Acetaminophen 500 MG Tablet 1000 MG PO (17:52)
--- NOTE | 2024-04-06 18:34 | NURSING ---
All care,medications, therapy and meals occurred in patient's room d/t enhanced droplet precautions for Covid. Patient did have temperature of 99.9 today and reported some runny nose and body aches. Tylenol administered. Patient denied further needs at this time. Patient did not wear oxygen throughout shift and was between 92%-97% on room air. Patient also c/o nausea that was not helped by Compazine this AM. Dr. Samuel was made aware and NO for Zofran, which was effective.
[2024-04-06] MEDS: traZODone 50 MG Tablet 25 MG PO (22:51)
[2024-04-06] MEDS: Vitamin B Comp W-C Capsule 1 CAP PO (22:52)
[2024-04-06] MEDS: Ferrous Sulfate 325 MG Tablet PO (22:53)
[2024-04-06] MEDS: Magnesium Chloride 64 MG Delay Rel.Tablet 128 MG PO (23:08)
[2024-04-06] MEDS: Ascorbic Acid 500 MG Tablet PO (23:09)
[2024-04-06 23:11] VITALS: BP 103/62; PULSE 78
[2024-04-06] MEDS: Cholecalciferol (VIT D3) 25 MCG TABLET (1,000 UNITS) PO (23:12)
[2024-04-07 06:00] VITALS: BMI 19.3
[2024-04-07] MEDS: Levothyroxine 50 MCG Tablet PO (06:33)
[2024-04-07] MEDS: Potassium Chloride Oral Tablet 20 MEQ PO ×2 (06:34→13:12)
[2024-04-07] MEDS: Ondansetron ODT 4 MG Tablet 8 MG PO ×2 (06:50→18:12)
[2024-04-07 07:05] LABS: Bedside Glucose 108 mg/dL (74-106)
[2024-04-07 10:00] VITALS: BP 112/68; PULSE 81; RESP 17; TEMP 36.7; O2SAT 95
[2024-04-07] MEDS: Acetaminophen 500 MG Tablet 1000 MG PO (10:02)
[2024-04-07] MEDS: Tamsulosin HCl 0.4 MG Capsule PO ×2 (10:03→18:03)
[2024-04-07] MEDS: Vitamin B Comp W-C Capsule 1 CAP PO (10:03)
[2024-04-07] MEDS: dilTIAZem CD 120 MG Capsule PO (10:04)
[2024-04-07] MEDS: Amiodarone 200 MG Tablet 100 MG PO (10:04)
[2024-04-07] MEDS: APIXABAN 2.5 MG TABLET (WCH) PO (10:05)
[2024-04-07] MEDS: Empagliflozin 10 MG Tablet PO (10:06)
[2024-04-07] MEDS: Isosorbide Mononitrate 30 MG Tablet PO (10:06)
[2024-04-07 10:07] VITALS: PULSE 75
[2024-04-07] MEDS: Furosemide 80 MG Tablet PO (10:07)
[2024-04-07] MEDS: Metoprolol Tartrate 25 MG Tablet 12.5 MG PO (10:07)
[2024-04-07] MEDS: Ranolazine 500 MG Tablet PO (10:08)
[2024-04-07] MEDS: Magnesium Chloride 64 MG Delay Rel.Tablet 128 MG PO (10:08)
[2024-04-07] MEDS: Pantoprazole Sodium 40 MG Tablet PO (10:08)
[2024-04-07] MEDS: Senna/Docusate Sodium 1 Tablet PO ×2 (10:09→23:20)
[2024-04-07] MEDS: Ascorbic Acid 500 MG Tablet PO (10:09)
[2024-04-07] MEDS: Finasteride 5 MG Tablet PO (13:11)
[2024-04-07] MEDS: MENTHOL 226.8 GM JAR 1 APPLIC TOPICAL (13:22)
--- NOTE | 2024-04-07 14:37 | NURSING ---
Patient continues in isolation for COVID. Patient requesting something for cough and nasal drainage. Call placed to Dr. Samuel. New orders received.
[2024-04-07] MEDS: guaiFENesin Dm 10 ML UDC PO (16:44)
[2024-04-07] MEDS: Sodium Chloride 0.65% 1 SPRAY SPRAY.BTL 2 SPRAY NASAL (16:44)
[2024-04-08 06:00] VITALS: BMI 20.1
[2024-04-08 06:42] LABS: Bedside Glucose 100 mg/dL (74-106)
[2024-04-08] MEDS: Levothyroxine 50 MCG Tablet PO (06:54)
[2024-04-08] MEDS: Potassium Chloride Oral Tablet 20 MEQ PO ×2 (06:54→20:33)
[2024-04-08] MEDS: Ondansetron ODT 4 MG Tablet 8 MG PO (08:29)
[2024-04-08] MEDS: Bisacodyl 10 MG Suppository RC (08:41)
[2024-04-08 13:54] VITALS: BP 127/79; PULSE 83; RESP 17; TEMP 36.2; O2SAT 98
[2024-04-08 14:03] VITALS: O2SAT 96
[2024-04-08] MEDS: Tamsulosin HCl 0.4 MG Capsule PO (17:51)
[2024-04-08] MEDS: Acetaminophen 500 MG Tablet 1000 MG PO (20:28)
[2024-04-08] MEDS: APIXABAN 2.5 MG TABLET (WCH) PO (20:28)
[2024-04-08] MEDS: Magnesium Chloride 64 MG Delay Rel.Tablet 128 MG PO (20:30)
[2024-04-08] MEDS: Senna/Docusate Sodium 1 Tablet PO (20:30)
[2024-04-08] MEDS: traZODone 50 MG Tablet 25 MG PO (20:31)
[2024-04-08] MEDS: Ascorbic Acid 500 MG Tablet PO (20:31)
[2024-04-08] MEDS: Cholecalciferol (VIT D3) 25 MCG TABLET (1,000 UNITS) PO (20:31)
[2024-04-08] MEDS: Pantoprazole Sodium 40 MG Tablet PO (20:32)
[2024-04-08] MEDS: Vitamin B Comp W-C Capsule 1 CAP PO (20:34)
[2024-04-08] MEDS: Ferrous Sulfate 325 MG Tablet PO (20:35)
[2024-04-08 20:47] VITALS: BP 134/83; PULSE 54
[2024-04-08] MEDS: Amiodarone 200 MG Tablet 100 MG PO (20:47)
[2024-04-08] MEDS: Metoprolol Tartrate 25 MG Tablet 12.5 MG PO (20:47)
[2024-04-08] MEDS: Ranolazine 500 MG Tablet PO (20:47)
[2024-04-08] MEDS: guaiFENesin Dm 10 ML UDC PO (21:28)
[2024-04-09 05:54] VITALS: BMI 19.8
[2024-04-09 06:11] LABS: Bedside Glucose 81 mg/dL (74-106)
[2024-04-09] MEDS: Potassium Chloride Oral Tablet 20 MEQ PO ×3 (06:53→21:37)
[2024-04-09] MEDS: Levothyroxine 50 MCG Tablet PO (06:53)
[2024-04-09] MEDS: Ondansetron ODT 4 MG Tablet 8 MG PO (08:12)
[2024-04-09] MEDS: Tamsulosin HCl 0.4 MG Capsule PO ×2 (10:42→17:53)
[2024-04-09] MEDS: dilTIAZem CD 120 MG Capsule PO (10:43)
[2024-04-09] MEDS: Amiodarone 200 MG Tablet 100 MG PO ×2 (10:43→21:38)
[2024-04-09 10:44] VITALS: BP 126/86; PULSE 76
[2024-04-09] MEDS: Empagliflozin 10 MG Tablet PO (10:44)
[2024-04-09] MEDS: Metoprolol Tartrate 25 MG Tablet 12.5 MG PO ×2 (10:44→21:53)
[2024-04-09] MEDS: Isosorbide Mononitrate 30 MG Tablet PO (10:44)
[2024-04-09] MEDS: APIXABAN 2.5 MG TABLET (WCH) PO ×2 (10:44→21:36)
[2024-04-09] MEDS: Furosemide 80 MG Tablet PO (10:44)
[2024-04-09] MEDS: Ranolazine 500 MG Tablet PO ×2 (10:46→21:36)
[2024-04-09] MEDS: Senna/Docusate Sodium 1 Tablet PO ×2 (10:46→21:39)
[2024-04-09] MEDS: Pantoprazole Sodium 40 MG Tablet PO ×2 (10:46→21:37)
[2024-04-09] MEDS: Ascorbic Acid 500 MG Tablet PO ×2 (10:47→21:39)
[2024-04-09 13:50] VITALS: BP 126/86; PULSE 76; RESP 18; TEMP 36.8; O2SAT 97
[2024-04-09] MEDS: Finasteride 5 MG Tablet PO (13:57)
[2024-04-09 15:52] VITALS: O2SAT 95
[2024-04-09] MEDS: Magnesium Chloride 64 MG Delay Rel.Tablet 128 MG PO (21:36)
[2024-04-09] MEDS: Vitamin B Comp W-C Capsule 1 CAP PO (21:36)
[2024-04-09] MEDS: Ferrous Sulfate 325 MG Tablet PO (21:37)
[2024-04-09] MEDS: traZODone 50 MG Tablet 25 MG PO (21:38)
[2024-04-09] MEDS: Cholecalciferol (VIT D3) 25 MCG TABLET (1,000 UNITS) PO (21:39)
[2024-04-09 21:53] VITALS: BP 125/85; PULSE 80
[2024-04-09] MEDS: Glycerin/Hypromellose/PEG400 15 ml Bottle 1 DRP EACH EYE (22:13)
--- NOTE | 2024-04-09 22:33 | NURSING ---
ALL CARE PROVIDED IN ROOM THIS SHIFT D/T DROPLET PRECAUTIONS D/T COVID.
[2024-04-10] MEDS: Acetaminophen 500 MG Tablet 1000 MG PO (00:41)
[2024-04-10] MEDS: Potassium Chloride Oral Tablet 20 MEQ PO ×3 (05:22→17:12)
[2024-04-10] MEDS: Levothyroxine 50 MCG Tablet PO (05:22)
[2024-04-10] MEDS: guaiFENesin Dm 10 ML UDC PO ×3 (05:57→23:57)
[2024-04-10 06:00] VITALS: BMI 19.9
[2024-04-10 06:03] LABS: Absolute Neutrophil Count 4.6 X10^3/uL (2.0-7.7); Basophil# 0.03 X10^3/uL; Basophil% 0.5 % (0-1); Eosinophil# 0.25 X10^3/uL; Eosinophils% 3.9 % (0-5); Hematocrit 30.5 % (40-54); Hemoglobin 10.2 g/dL (13.0-16.5); Mean Corp Hgb Conc 33.4 g/dL (32-36); Mean Corpuscular Hgb 37.5 pg (27.0-32.0); Mean Corpuscular Volume 112.1 fL (80-94); Mean Platelet Vol. 10.2 fl (6.2-12.0); Monocyte# 0.77 X10^3/uL; Monocyte% 12.1 % (0-10); NRBC Flagged by Analyzer 0 % (0-5); Neutrophil # 4.58 X10^3/uL (2.7-7.7); Neutrophil % 71.7 % (47-70); Platelet Count 211 K/mm3 (150-450); RBC Distribution Width CV 15.2 % (11.6-14.6); RBC Distribution Width SD 62.5 fl (35.1-43.9); Red Blood Count 2.72 M/mm3 (4.6-6.2); White Blood Count 6.4 K/mm3 (4.4-11.0)
[2024-04-10 07:01] LABS: Anion Gap 9 (5-15); BUN 55 mg/dL (7-18); BUN/Creat Ratio 16.7 RATIO (10-20); Calcium,Total 8.3 mg/dL (8.5-10.1); Chloride 104 mmol/L (98-107); EST Glomerular Filtration Rate 19 mL/min (>60); Est Glom Filt Rate - Afr Amer 23 mL/min (>60); Estimated Creatinine Clearance 14.52 ml/min; Glucose 91 mg/dL (74-106); Potassium 4.2 mmol/L (3.5-5.1); Sodium Level 137 mmol/L (136-145)
[2024-04-10] MEDS: Ondansetron ODT 4 MG Tablet 8 MG PO (07:17)
[2024-04-10 07:20] LABS: Bedside Glucose 88 mg/dL (74-106)
[2024-04-10] MEDS: Empagliflozin 10 MG Tablet PO (09:40)
[2024-04-10] MEDS: Ascorbic Acid 500 MG Tablet PO ×2 (09:40→22:03)
[2024-04-10] MEDS: Amiodarone 200 MG Tablet 100 MG PO ×2 (09:40→22:13)
[2024-04-10] MEDS: Tamsulosin HCl 0.4 MG Capsule PO ×2 (09:40→17:12)
[2024-04-10] MEDS: dilTIAZem CD 120 MG Capsule PO (09:40)
[2024-04-10] MEDS: Senna/Docusate Sodium 1 Tablet PO ×2 (09:40→22:04)
[2024-04-10] MEDS: Isosorbide Mononitrate 30 MG Tablet PO (09:40)
[2024-04-10] MEDS: Ranolazine 500 MG Tablet PO ×2 (09:40→22:03)
[2024-04-10] MEDS: Furosemide 80 MG Tablet PO (09:40)
[2024-04-10] MEDS: APIXABAN 2.5 MG TABLET (WCH) PO ×2 (09:40→22:05)
[2024-04-10 09:41] VITALS: BP 116/73; PULSE 78
[2024-04-10] MEDS: Pantoprazole Sodium 40 MG Tablet PO ×2 (09:41→22:05)
[2024-04-10] MEDS: Magnesium Chloride 64 MG Delay Rel.Tablet 128 MG PO ×2 (09:41→22:03)
[2024-04-10] MEDS: Metoprolol Tartrate 25 MG Tablet 12.5 MG PO ×2 (09:41→22:14)
[2024-04-10] MEDS: Vitamin B Comp W-C Capsule 1 CAP PO ×2 (09:41→22:04)
[2024-04-10 10:49] VITALS: BP 116/73; PULSE 78
[2024-04-10] MEDS: Finasteride 5 MG Tablet PO (11:46)
[2024-04-10 16:00] VITALS: BP 119/81; PULSE 78; RESP 16; TEMP 36; O2SAT 95
[2024-04-10 16:50] VITALS: O2SAT 89
[2024-04-10 22:00] VITALS: BP 102/58
[2024-04-10] MEDS: Ferrous Sulfate 325 MG Tablet PO (22:04)
[2024-04-10] MEDS: traZODone 50 MG Tablet 25 MG PO (22:04)
[2024-04-10] MEDS: Cholecalciferol (VIT D3) 25 MCG TABLET (1,000 UNITS) PO (22:05)
[2024-04-10 22:14] VITALS: BP 102/58; PULSE 80
[2024-04-11 05:48] VITALS: BMI 19.8
[2024-04-11] MEDS: Levothyroxine 50 MCG Tablet PO (06:14)
[2024-04-11] MEDS: guaiFENesin Dm 10 ML UDC PO ×2 (06:14→23:10)
[2024-04-11 06:56] LABS: Bedside Glucose 100 mg/dL (74-106)
[2024-04-11 09:53] VITALS: BP 121/89; PULSE 78; RESP 17; TEMP 35; O2SAT 96
[2024-04-11] MEDS: Ondansetron ODT 4 MG Tablet 8 MG PO ×2 (09:53→22:55)
--- NOTE | 2024-04-11 12:32 | NURSING ---
Patient refused AM medications d/t nausea. PRN Zofran effective.
[2024-04-11] MEDS: Potassium Chloride Oral Tablet 20 MEQ PO (12:34)
[2024-04-11] MEDS: Finasteride 5 MG Tablet PO (12:35)
[2024-04-11] MEDS: Acetaminophen 500 MG Tablet 1000 MG PO (12:35)
--- NOTE | 2024-04-11 14:13 | NURSING ---
Patient remains in COVID isolation.
[2024-04-11 15:42] VITALS: O2SAT 97
[2024-04-11 22:45] VITALS: BP 135/96; PULSE 78; RESP 18; O2SAT 94
[2024-04-11] MEDS: Ascorbic Acid 500 MG Tablet PO (22:55)
[2024-04-11] MEDS: traZODone 50 MG Tablet 25 MG PO (22:55)
[2024-04-11 22:56] VITALS: PULSE 75
[2024-04-11] MEDS: Metoprolol Tartrate 25 MG Tablet 12.5 MG PO (22:56)
[2024-04-11] MEDS: Cholecalciferol (VIT D3) 25 MCG TABLET (1,000 UNITS) PO (22:56)
[2024-04-11] MEDS: Pantoprazole Sodium 40 MG Tablet PO (22:56)
[2024-04-11] MEDS: APIXABAN 2.5 MG TABLET (WCH) PO (22:56)
[2024-04-11] MEDS: Senna/Docusate Sodium 1 Tablet PO (22:56)
[2024-04-11] MEDS: Ferrous Sulfate 325 MG Tablet PO (22:56)
[2024-04-11] MEDS: Vitamin B Comp W-C Capsule 1 CAP PO (22:56)
[2024-04-11] MEDS: Magnesium Chloride 64 MG Delay Rel.Tablet 128 MG PO (22:56)
[2024-04-11] MEDS: Amiodarone 200 MG Tablet 100 MG PO (22:56)
[2024-04-11] MEDS: Ranolazine 500 MG Tablet PO (22:57)
[2024-04-12 06:00] VITALS: BMI 19.8
[2024-04-12 06:20] LABS: Bedside Glucose 85 mg/dL (74-106)
[2024-04-12] MEDS: Levothyroxine 50 MCG Tablet PO (06:27)
[2024-04-12] MEDS: Ondansetron ODT 4 MG Tablet 8 MG PO ×2 (08:15→17:04)
[2024-04-12 09:36] VITALS: BP 116/74; PULSE 78
[2024-04-12] MEDS: Metoprolol Tartrate 25 MG Tablet 12.5 MG PO ×2 (09:36→22:25)
[2024-04-12] MEDS: Ranolazine 500 MG Tablet PO ×2 (09:36→22:25)
[2024-04-12] MEDS: Isosorbide Mononitrate 30 MG Tablet PO (09:36)
[2024-04-12] MEDS: Pantoprazole Sodium 40 MG Tablet PO ×2 (09:36→22:24)
[2024-04-12] MEDS: Potassium Chloride Oral Tablet 20 MEQ PO ×3 (09:37→17:38)
[2024-04-12] MEDS: Amiodarone 200 MG Tablet 100 MG PO ×2 (09:37→22:25)
[2024-04-12] MEDS: Tamsulosin HCl 0.4 MG Capsule PO ×2 (09:37→17:38)
[2024-04-12] MEDS: dilTIAZem CD 120 MG Capsule PO (09:37)
[2024-04-12] MEDS: Furosemide 80 MG Tablet PO (09:37)
[2024-04-12] MEDS: Empagliflozin 10 MG Tablet PO (09:37)
[2024-04-12] MEDS: APIXABAN 2.5 MG TABLET (WCH) PO ×2 (09:37→22:25)
[2024-04-12 09:51] VITALS: BP 116/74; PULSE 78; O2SAT 93
[2024-04-12] MEDS: Finasteride 5 MG Tablet PO (12:10)
[2024-04-12] MEDS: Acetaminophen 500 MG Tablet 1000 MG PO (12:10)
[2024-04-12 15:30] VITALS: BP 123/80; PULSE 78; RESP 18; TEMP 36.6; O2SAT 97
[2024-04-12] MEDS: Cholecalciferol (VIT D3) 25 MCG TABLET (1,000 UNITS) PO (22:24)
[2024-04-12 22:25] VITALS: BP 113/78; PULSE 78
[2024-04-12] MEDS: Ascorbic Acid 500 MG Tablet PO (22:25)
[2024-04-12] MEDS: Magnesium Chloride 64 MG Delay Rel.Tablet 128 MG PO (22:25)
[2024-04-12] MEDS: Vitamin B Comp W-C Capsule 1 CAP PO (22:25)
[2024-04-12] MEDS: Ferrous Sulfate 325 MG Tablet PO (22:25)
[2024-04-12] MEDS: Senna/Docusate Sodium 1 Tablet PO (22:25)
[2024-04-12] MEDS: traZODone 50 MG Tablet 25 MG PO (22:25)
[2024-04-12 22:30] VITALS: O2SAT 96
[2024-04-12] MEDS: guaiFENesin Dm 10 ML UDC PO (22:33)
[2024-04-13] MEDS: Acetaminophen 500 MG Tablet 1000 MG PO (05:12)
[2024-04-13] MEDS: Levothyroxine 50 MCG Tablet PO (05:12)
[2024-04-13] MEDS: MENTHOL 226.8 GM JAR 1 APPLIC TOPICAL (05:21)
[2024-04-13 06:45] LABS: Bedside Glucose 94 mg/dL (74-106)
[2024-04-13] MEDS: Potassium Chloride Oral Tablet 20 MEQ PO (08:00)
[2024-04-13] MEDS: Tamsulosin HCl 0.4 MG Capsule PO ×2 (08:01→18:09)
[2024-04-13] MEDS: Amiodarone 200 MG Tablet 100 MG PO ×2 (08:03→23:36)
[2024-04-13] MEDS: Isosorbide Mononitrate 30 MG Tablet PO (08:05)
[2024-04-13] MEDS: Magnesium Chloride 64 MG Delay Rel.Tablet 128 MG PO ×2 (08:05→23:26)
[2024-04-13] MEDS: Empagliflozin 10 MG Tablet PO (08:05)
[2024-04-13] MEDS: Pantoprazole Sodium 40 MG Tablet PO ×2 (08:05→23:26)
[2024-04-13] MEDS: APIXABAN 2.5 MG TABLET (WCH) PO ×2 (08:06→23:24)
[2024-04-13] MEDS: Vitamin B Comp W-C Capsule 1 CAP PO ×2 (08:06→23:25)
[2024-04-13] MEDS: Furosemide 80 MG Tablet PO (08:06)
[2024-04-13] MEDS: dilTIAZem CD 120 MG Capsule PO (08:07)
[2024-04-13] MEDS: Ranolazine 500 MG Tablet PO ×2 (08:08→23:36)
[2024-04-13] MEDS: Ascorbic Acid 500 MG Tablet PO ×2 (08:08→23:25)
[2024-04-13] MEDS: Ondansetron ODT 4 MG Tablet 8 MG PO (08:13)
[2024-04-13 08:25] VITALS: BP 124/91; PULSE 78
[2024-04-13] MEDS: Metoprolol Tartrate 25 MG Tablet 12.5 MG PO ×2 (08:25→23:37)
[2024-04-13] MEDS: Senna/Docusate Sodium 1 Tablet PO ×2 (08:25→23:26)
--- NOTE | 2024-04-13 11:31 | PCM.PN.REN ---
Subjective Subjective Following for CKD Patient resting in bed. He tested positive for Covid. Patient states has fair appetite but has been nauseated last few days. Denies any shortness of breath and states has not needed to wear O2 much. Denies any edema. Objective Data Objective Data Vital Signs: Vital Signs Temp Pulse Resp BP Pulse Ox O2 Del Method O2 Flow Rate 97.9 F 78 18 124/91 H 96 Room Air 2 04/12/24 15:30 04/13/24 08:25 04/12/24 15:30 04/13/24 08:25 04/12/24 22:30 04/12/24 22:30 04/06/24 09:28 Oxygen Flow Rate (L/min) 2 Oxygen Delivery Method Room Air Weight: 59.148 kg Body Mass Index (BMI) 19.8 Intake & Output: Intake and Output for Last 24 Hours 04/11/24 04/12/24 04/13/24 23:59 23:59 23:59 Intake Total 720 / 720 720 / 720 Balance 720 / 720 720 / 720 Lab / Micro Data 04/10/24 05:45 04/10/24 05:45 Labs: Laboratory Results - last 24 hr 04/13/24 06:10: POC Glucose 94 Micro: Microbiology 04/05/24 06:03 Nasal Secretion SARS-CoV-2 Antigen (Rapid) - Final SARS-CoV-2 (COVID 19) 03/29/24 05:55 Nasal Secretion SARS-CoV-2 Antigen (Rapid) - Final Physical Exam Narrative A&Ox3, no apparent distress Breath sounds are equal and clear S1-S2 regular abdomen soft, nontender No edema Assessment & Plan Assessment/Plan (1) CKD (chronic kidney disease) stage 4, GFR 15-29 ml/min: (2) Acute HFrEF (heart failure with reduced ejection fraction): PLAN: Plan This is a very pleasant 83-year-old male with past medical history significant for hypertension, COPD, pulmonary hypertension, heart failure reduced EF, ALVARADO on CPAP, severe pulmonary hypertension, A-fib, coronary artery disease, BPH on Flomax, hyperlipidemia, history of GI bleed followed by Dr. Hodges, CKD stage IV who is currently in TCU for therapy after recent hospitalization where he was admitted to the hospital for acute hypoxia secondary to acute decompensated heart failure. Echo from March 21, 2024: Left atrium severely enlarged, EF 53%, moderate pulmonary hypertension, pulmonary artery systolic pressure 64 mmHg, mild to moderate mitral valve insufficiency. He was also seen for GI for difficulty swallowing. Nephrology consulted in view of history of CKD stage IV. Patient is known to our group. He has chronic kidney disease stage IV with baseline creatinine now ranging around 2.7 to 3.1 mg/dL. -SCr has been around 3 to 3.2mg/dL since end of February. Last labs SCr 3.3mg/dL. Potassium and bicarb normal. No acute indication for any FOUNDRY PROCESS ENGINEER. Patient is currently euvolemic to possibly mildly hypovolemic. Respiratory status adequate without needing O2 continuous therefore we will hold lasix for over weekend. Check BMP Tuesday and possibly restart lasix Tuesday. Weights have been staying the same ~59kg. No need for IV fluids
[2024-04-13] MEDS: Finasteride 5 MG Tablet PO (12:50)
[2024-04-13 16:32] VITALS: BP 96/60; PULSE 77; RESP 17; TEMP 34.2; O2SAT 95
[2024-04-13] MEDS: Ferrous Sulfate 325 MG Tablet PO (23:27)
[2024-04-13] MEDS: traZODone 50 MG Tablet 25 MG PO (23:27)
[2024-04-13] MEDS: Cholecalciferol (VIT D3) 25 MCG TABLET (1,000 UNITS) PO (23:29)
[2024-04-13 23:37] VITALS: BP 126/86; PULSE 80
[2024-04-14] VITALS (7 sets, daily range): BP systolic 121–147; BP diastolic 77–95; PULSE 67–85; RESP 18–22; TEMP 35.6; O2SAT 97–100
[2024-04-14] MEDS: Levothyroxine 50 MCG Tablet PO (05:46)
[2024-04-14 06:20] LABS: Bedside Glucose 74 mg/dL (74-106)
[2024-04-14] MEDS: Ondansetron ODT 4 MG Tablet 8 MG PO ×2 (09:27→20:44)
--- NOTE | 2024-04-14 09:32 | NURSING ---
PT COMPLAINING OF NAUSEA AGAIN THIS MORNING. PT IS NAUSEATED EVERY MORNING BEFORE BREAKFAST. IS AWARE. PRN ZOFRAN GIVEN.
--- NOTE | 2024-04-14 09:33 | NURSING ---
ALL CARE GIVEN IN ROOM DUE TO PT IN PRECAUTIONS FOR COVID.
[2024-04-14] MEDS: Bisacodyl 10 MG Suppository RC (11:39)
--- NOTE | 2024-04-14 11:45 | NURSING ---
Addendum entered by Oswaldo Raines 04/14/24 12:53: PT STILL NAUSEATED BUT POSITIVE RESULTS WITH PRN DULCOLAX. MED HARD PER PT RESULTS. Original Note: PT STILL NAUSEATED AND DIZZY AND STATED HE HASN'T HAD A BM IN OVER 3 DAYS. PRN DULCOLAX GIVEN.
--- NOTE | 2024-04-14 16:40 | RAD_ITS ---
INDICATION: crackles, covid + EXAMINATION/TECHNIQUE: X-RAY - XR Chest 2 Views COMPARISON: 03/21/2024 FINDINGS: LIFE-SUPPORT AND LINES: 1. None HEART AND VESSELS: Cardiac silhouette is large, tortuous atheromatous aorta is noted. No evidence congestive failure. LUNGS AND PLEURAL SPACES: Minimal interstitial prominence in the perihilar regions however no focal infiltrate consolidation or effusion. No pulmonary mass is noted. MEDIASTINUM AND HILAR REGIONS: No masses adenopathy noted. No areas of calcification. Visualized upper airway is normal in position. BONY ELEMENTS: No acute bony changes noted. RAD/Chest PA and Lateral IMPRESSION: 1. Cardiomegaly without evidence of congestive failure. 2. Minimal interstitial prominence and perihilar regions. No focal infiltrate or consolidation. Electronically Signed: Balbir Latham MD at 18:23 EDT ,
[2024-04-14] MEDS: Tamsulosin HCl 0.4 MG Capsule PO (16:58)
[2024-04-14] MEDS: Amiodarone 200 MG Tablet 100 MG PO (20:27)
[2024-04-14] MEDS: Vitamin B Comp W-C Capsule 1 CAP PO (20:27)
[2024-04-14] MEDS: APIXABAN 2.5 MG TABLET (WCH) PO (20:28)
[2024-04-14] MEDS: Ferrous Sulfate 325 MG Tablet PO (20:29)
[2024-04-14] MEDS: traZODone 50 MG Tablet 25 MG PO (20:29)
[2024-04-14] MEDS: Magnesium Chloride 64 MG Delay Rel.Tablet 128 MG PO (20:30)
[2024-04-14] MEDS: Senna/Docusate Sodium 1 Tablet PO (20:31)
[2024-04-14] MEDS: Pantoprazole Sodium 40 MG Tablet PO (20:31)
[2024-04-14] MEDS: Ranolazine 500 MG Tablet PO (20:31)
[2024-04-14] MEDS: Ascorbic Acid 500 MG Tablet PO (20:32)
[2024-04-14] MEDS: Cholecalciferol (VIT D3) 25 MCG TABLET (1,000 UNITS) PO (20:32)
[2024-04-14] MEDS: Metoprolol Tartrate 25 MG Tablet 12.5 MG PO (21:01)
[2024-04-14] MEDS: Acetaminophen 500 MG Tablet 1000 MG PO (22:48)
[2024-04-15] MEDS: Ondansetron ODT 4 MG Tablet 8 MG PO (04:35)
[2024-04-15] MEDS: Levothyroxine 50 MCG Tablet PO (04:42)
--- NOTE | 2024-04-15 04:43 | NURSING ---
Patient reported to SKILLED LABOR that he felt dizzy and nauseas this morning. Nurse offered patient food and fluids. Patient asked for crackers and sprite, this nurse provided snacks to patient. Patient asked for PRN zofran. PRN zofran administered with ILEANA synthroid per patient's request stating, I better take it now with the Zofran so I don't throw up. Patient resting in bed, call light in reach, verbalized understanding to use call light if he needs farther assistance or if symptoms worsen or do not relieve.
[2024-04-15 04:45] VITALS: PULSE 85; RESP 17; O2SAT 96
[2024-04-15 06:00] VITALS: BMI 19.8
[2024-04-15 06:24] LABS: Bedside Glucose 105 mg/dL (74-106)
[2024-04-15 09:25] VITALS: BP 112/69; PULSE 80; RESP 18; TEMP 35.3; O2SAT 98
--- NOTE | 2024-04-15 10:00 | RAD_ITS ---
INDICATION: nausea/constipation EXAMINATION/TECHNIQUE: X-RAY - XR Abdomen 1 View COMPARISON: No relevant prior comparison study available FINDINGS: BOWEL GAS PATTERN: Non-obstructive. No bowel or stomach distention. FREE AIR: Not assessed on a single supine view. ORGANOMEGALY: Not seen. CALCIFICATIONS: No abnormal calcifications observed. LOWER CHEST: No acute pathology. BONES AND SOFT TISSUES: Vertebroplasty in the lower thoracic and upper lumbar spine. Degenerative changes. RAD/Abdomen Single View IMPRESSION: Non-obstructive bowel gas pattern. Electronically Signed: Nando Benavides MD at 10:20 EDT ,
--- NOTE | 2024-04-15 10:02 | NURSING ---
off unit to xray. dr hess notified of pt c/o nausea after eating, bloating, dizzy & THAKUR. new order to DC zofran, start compazine PRN, recheck BMP d/t elevated BUN/CR. KUB abdomen to check for constipation
[2024-04-15 11:27] LABS: Anion Gap 5 (5-15); BUN 40 mg/dL (7-18); BUN/Creat Ratio 15.2 RATIO (10-20); Calcium,Total 8.6 mg/dL (8.5-10.1); Chloride 105 mmol/L (98-107); Creatinine, Serum 2.64 mg/dL (0.70-1.30); EST Glomerular Filtration Rate 25 mL/min (>60); Est Glom Filt Rate - Afr Amer 30 mL/min (>60); Estimated Creatinine Clearance 18.08 ml/min; Glucose 96 mg/dL (74-106); Sodium Level 136 mmol/L (136-145)
[2024-04-15] MEDS: proCHLORPERazine 5 MG Tablet 10 MG PO (11:43)
--- NOTE | 2024-04-15 11:52 | NURSING ---
Addendum entered by Jeannie Bonilla 04/15/24 11:54: pt states he has had enema's in past, states had small hard balls of stool yesterday. pt refusing AM meds d/t nausea at this time. going to eat lunch and then will take them. Original Note: compazine given, pt awakened to administer. pt c/o slight nausea. updated pt on labs & xray, awaiting on Dr hess to respond.
[2024-04-15] MEDS: Magnesium Citrate 300 ML PO (12:30)
--- NOTE | 2024-04-15 12:38 | NURSING ---
Addendum entered by Jeannie Bonilla 04/15/24 17:20: pt had large soft valdes colored stool, denies nausea feeling better, wide awake watching tv. denies THAKUR, dizziness, any other symptoms at this time Original Note: pt drinking mag citrate at this time. holding off on medications for now until feeling better. hoping to have a BM soon
[2024-04-15 13:34] VITALS: BP 126/72; PULSE 70; O2SAT 98
[2024-04-15 14:50] VITALS: BMI 19.8
--- NOTE | 2024-04-15 18:00 | NURSING ---
pt refused all meds today d/t nausea, feeling much better since having BM's. no more nausea or dizzyness since mag citrate effective
[2024-04-15] MEDS: Cholecalciferol (VIT D3) 25 MCG TABLET (1,000 UNITS) PO (21:01)
[2024-04-15] MEDS: Amiodarone 200 MG Tablet 100 MG PO (21:01)
[2024-04-15] MEDS: Magnesium Chloride 64 MG Delay Rel.Tablet 128 MG PO (21:01)
[2024-04-15] MEDS: APIXABAN 2.5 MG TABLET (WCH) PO (21:02)
[2024-04-15] MEDS: Vitamin B Comp W-C Capsule 1 CAP PO (21:02)
[2024-04-15] MEDS: Ranolazine 500 MG Tablet PO (21:02)
[2024-04-15] MEDS: Pantoprazole Sodium 40 MG Tablet PO (21:02)
[2024-04-15] MEDS: Ascorbic Acid 500 MG Tablet PO (21:02)
[2024-04-15] MEDS: traZODone 50 MG Tablet 25 MG PO (21:03)
[2024-04-15] MEDS: Ferrous Sulfate 325 MG Tablet PO (21:04)
[2024-04-15 21:06] VITALS: BP 116/73; PULSE 79
[2024-04-15] MEDS: Metoprolol Tartrate 25 MG Tablet 12.5 MG PO (21:06)
[2024-04-15 21:21] VITALS: BP 116/73; PULSE 79
[2024-04-16] MEDS: guaiFENesin Dm 10 ML UDC PO ×3 (01:39→21:29)
[2024-04-16] MEDS: Levothyroxine 50 MCG Tablet PO (05:20)
[2024-04-16 06:00] VITALS: BMI 19.9
[2024-04-16 06:27] LABS: Bedside Glucose 85 mg/dL (74-106)
[2024-04-16 06:59] LABS: Anion Gap 6 (5-15); BUN 38 mg/dL (7-18); BUN/Creat Ratio 13.9 RATIO (10-20); Calcium,Total 8.3 mg/dL (8.5-10.1); Chloride 106 mmol/L (98-107); Creatinine, Serum 2.73 mg/dL (0.70-1.30); EST Glomerular Filtration Rate 24 mL/min (>60); Est Glom Filt Rate - Afr Amer 29 mL/min (>60); Estimated Creatinine Clearance 17.54 ml/min; Glucose 94 mg/dL (74-106); Potassium 4.1 mmol/L (3.5-5.1); Sodium Level 138 mmol/L (136-145)
[2024-04-16 07:53] VITALS: O2SAT 96
[2024-04-16] MEDS: Acetaminophen 500 MG Tablet 1000 MG PO (09:28)
[2024-04-16] MEDS: Tamsulosin HCl 0.4 MG Capsule PO ×2 (09:33→17:26)
[2024-04-16] MEDS: Magnesium Chloride 64 MG Delay Rel.Tablet 128 MG PO ×2 (09:33→21:35)
[2024-04-16] MEDS: dilTIAZem CD 120 MG Capsule PO (09:33)
[2024-04-16] MEDS: Potassium Chloride Oral Tablet 20 MEQ PO (09:33)
[2024-04-16] MEDS: Ranolazine 500 MG Tablet PO ×2 (09:33→21:35)
[2024-04-16] MEDS: Ascorbic Acid 500 MG Tablet PO ×2 (09:33→21:35)
[2024-04-16] MEDS: Amiodarone 200 MG Tablet 100 MG PO ×2 (09:33→21:38)
[2024-04-16] MEDS: Isosorbide Mononitrate 30 MG Tablet PO (09:33)
[2024-04-16] MEDS: APIXABAN 2.5 MG TABLET (WCH) PO ×2 (09:33→21:34)
[2024-04-16 09:34] VITALS: BP 129/83; PULSE 78
[2024-04-16] MEDS: Empagliflozin 10 MG Tablet PO (09:34)
[2024-04-16] MEDS: Metoprolol Tartrate 25 MG Tablet 12.5 MG PO ×2 (09:34→21:37)
[2024-04-16] MEDS: Vitamin B Comp W-C Capsule 1 CAP PO ×2 (09:34→21:34)
[2024-04-16] MEDS: Pantoprazole Sodium 40 MG Tablet PO ×2 (09:34→21:35)
[2024-04-16] MEDS: Furosemide 80 MG Tablet PO (10:45)
[2024-04-16 10:47] VITALS: BP 114/75; PULSE 70; RESP 16; TEMP 36.4; O2SAT 95
[2024-04-16 11:41] VITALS: BP 114/75; PULSE 74; RESP 16; TEMP 36.4; O2SAT 95
[2024-04-16] MEDS: Glycerin/Hypromellose/PEG400 15 ml Bottle 1 DRP EACH EYE ×2 (13:04→21:29)
[2024-04-16] MEDS: Finasteride 5 MG Tablet PO (13:05)
--- NOTE | 2024-04-16 14:53 | CASEMGMT ---
Social Work SW spoke with pt at bedside to follow up on stamina after COVID. Pt states he has cough lingering and his legs feel weak. SW agreed to follow up on therapy progress in another week. Pt appreciative. SW will continue to follow. Roya Sarabia, CARCASS TRIMMER ENVIRONMENTAL AIDE
[2024-04-16 21:30] VITALS: BP 123/83; PULSE 76; TEMP 36.9
[2024-04-16] MEDS: traZODone 50 MG Tablet 25 MG PO (21:34)
[2024-04-16] MEDS: Cholecalciferol (VIT D3) 25 MCG TABLET (1,000 UNITS) PO (21:35)
[2024-04-16] MEDS: Senna/Docusate Sodium 1 Tablet 2 TABLET PO (21:35)
[2024-04-16] MEDS: Ferrous Sulfate 325 MG Tablet PO (21:35)
[2024-04-16 21:37] VITALS: BP 123/83; PULSE 76
[2024-04-17] MEDS: Levothyroxine 50 MCG Tablet PO (05:46)
[2024-04-17] MEDS: Acetaminophen 500 MG Tablet 1000 MG PO ×2 (05:47→17:37)
[2024-04-17 05:54] LABS: Absolute Lymphocyte Count 0.55 X10^3/uL (0.83-4.51); Absolute Neutrophil Count 14.2 X10^3/uL (2.0-7.7); Basophil# 0.05 X10^3/uL; Basophil% 0.3 % (0-1); Eosinophil# 0.09 X10^3/uL; Eosinophils% 0.5 % (0-5); Hematocrit 32.5 % (40-54); Hemoglobin 10.9 g/dL (13.0-16.5); Lymphocyte # 0.55 X10^3/ul (0.83-4.51); Lymphocyte % 3.3 % (19-41); Mean Corp Hgb Conc 33.5 g/dL (32-36); Mean Corpuscular Hgb 37.8 pg (27.0-32.0); Mean Corpuscular Volume 112.8 fL (80-94); Mean Platelet Vol. 9.4 fl (6.2-12.0); Monocyte% 8.5 % (0-10); NRBC Flagged by Analyzer 0 % (0-5); Neutrophil # 14.22 X10^3/uL (2.7-7.7); Neutrophil % 86.5 % (47-70); POSITIVE DIFFERENTIAL YES; Platelet Count 250 K/mm3 (150-450); RBC Distribution Width CV 15.5 % (11.6-14.6); RBC Distribution Width SD 63.9 fl (35.1-43.9); Red Blood Count 2.88 M/mm3 (4.6-6.2); White Blood Count 16.5 K/mm3 (4.4-11.0)
[2024-04-17 06:00] VITALS: BMI 20.2
[2024-04-17 06:44] LABS: Bedside Glucose 114 mg/dL (74-106)
[2024-04-17 06:49] LABS: Anion Gap 5 (5-15); BUN 38 mg/dL (7-18); BUN/Creat Ratio 13.9 RATIO (10-20); Calcium,Total 8.3 mg/dL (8.5-10.1); Chloride 102 mmol/L (98-107); Creatinine, Serum 2.74 mg/dL (0.70-1.30); EST Glomerular Filtration Rate 24 mL/min (>60); Est Glom Filt Rate - Afr Amer 29 mL/min (>60); Estimated Creatinine Clearance 17.74 ml/min; Glucose 112 mg/dL (74-106); Potassium 4.4 mmol/L (3.5-5.1); Sodium Level 133 mmol/L (136-145)
[2024-04-17] MEDS: APIXABAN 2.5 MG TABLET (WCH) PO ×2 (09:26→21:45)
[2024-04-17] MEDS: Ranolazine 500 MG Tablet PO ×2 (09:27→21:49)
[2024-04-17] MEDS: Senna/Docusate Sodium 1 Tablet 2 TABLET PO ×2 (09:27→21:50)
[2024-04-17] MEDS: Pantoprazole Sodium 40 MG Tablet PO ×2 (09:27→21:50)
[2024-04-17 09:28] VITALS: PULSE 75
[2024-04-17] MEDS: dilTIAZem CD 120 MG Capsule PO (09:28)
[2024-04-17] MEDS: Metoprolol Tartrate 25 MG Tablet 12.5 MG PO ×2 (09:28→21:46)
[2024-04-17] MEDS: Isosorbide Mononitrate 30 MG Tablet PO (09:29)
[2024-04-17] MEDS: Potassium Chloride Oral Tablet 20 MEQ PO (09:30)
[2024-04-17] MEDS: Amiodarone 200 MG Tablet 100 MG PO ×2 (09:30→21:43)
[2024-04-17] MEDS: Tamsulosin HCl 0.4 MG Capsule PO ×2 (09:30→17:38)
[2024-04-17] MEDS: Empagliflozin 10 MG Tablet PO (09:31)
[2024-04-17] MEDS: Vitamin B Comp W-C Capsule 1 CAP PO ×2 (09:31→21:43)
[2024-04-17] MEDS: Furosemide 80 MG Tablet PO (09:34)
[2024-04-17] MEDS: Ascorbic Acid 500 MG Tablet PO ×2 (09:34→21:50)
[2024-04-17] MEDS: Magnesium Chloride 64 MG Delay Rel.Tablet 128 MG PO ×2 (09:34→21:48)
[2024-04-17] MEDS: proCHLORPERazine 5 MG Tablet 10 MG PO (09:40)
[2024-04-17 09:41] VITALS: BP 119/70; PULSE 86; RESP 16; TEMP 36.7; O2SAT 96
[2024-04-17] MEDS: Finasteride 5 MG Tablet PO (13:17)
--- NOTE | 2024-04-17 14:48 | CHAPLAIN ---
Type of Pastoral Visit ___ Initial Visit _x__ Follow-up Visit ___ On-call Visit ___ General Patient Visit ___ Spiritual Assessment ___ Family Conference ___ Bereavement ___ Rapid Response ___ Code Blue ___ Other (describe below) Pastoral Care Referral From _x__ Patient ___ Family ___ Nurse ___ Physician ___ Tower Control Operator ___ Opener ___ Other (describe below) Sacrament/Intervention _x__ Active listening ___ Anointing ___ Mormon ___ Bereavement ___ Communion ___ Jerica exploration ___ ___ Life review _x__ Prayer ___ Reconciliation ___ Sacrament of Sick ___ Supportive presence ___ Wedding ___ Other (describe below) Pastoral Comments this was a brief follow up visit for patient who will be going to a doctor's appointment; pt admits to times of discouragement and that having had covid set him back and is still keeping him weak; pt says that he would welcome a prayer for his recovery and better days ahead; pt admits uncertainty of life is real to him
[2024-04-17 14:56] LABS: BNP,B-Type NATRIURETIC PEPTIDE 410.5 pg/mL (0-100)
[2024-04-17 20:00] VITALS: PULSE 76; O2SAT 92
[2024-04-17 21:39] VITALS: BP 110/68; PULSE 76; O2SAT 92
[2024-04-17] MEDS: traZODone 50 MG Tablet 25 MG PO (21:44)
[2024-04-17 21:46] VITALS: BP 110/68; PULSE 76
[2024-04-17] MEDS: Ferrous Sulfate 325 MG Tablet PO (21:46)
[2024-04-17] MEDS: Cholecalciferol (VIT D3) 25 MCG TABLET (1,000 UNITS) PO (21:51)
[2024-04-18] MEDS: guaiFENesin Dm 10 ML UDC PO ×3 (00:26→21:38)
[2024-04-18] MEDS: Levothyroxine 50 MCG Tablet PO (05:12)
[2024-04-18 06:02] LABS: Absolute Lymphocyte Count 0.88 X10^3/uL (0.83-4.51); Absolute Neutrophil Count 7.5 X10^3/uL (2.0-7.7); Basophil# 0.06 X10^3/uL; Basophil% 0.6 % (0-1); Eosinophil# 0.19 X10^3/uL; Hemoglobin 10.8 g/dL (13.0-16.5); Lymphocyte # 0.88 X10^3/ul (0.83-4.51); Lymphocyte % 9.1 % (19-41); Mean Corp Hgb Conc 33.8 g/dL (32-36); Mean Corpuscular Volume 112.7 fL (80-94); Mean Platelet Vol. 9.7 fl (6.2-12.0); Monocyte# 0.92 X10^3/uL; Monocyte% 9.5 % (0-10); NRBC Flagged by Analyzer 0 % (0-5); Neutrophil # 7.51 X10^3/uL (2.7-7.7); Neutrophil % 77.5 % (47-70); Platelet Count 235 K/mm3 (150-450); RBC Distribution Width CV 15.5 % (11.6-14.6); RBC Distribution Width SD 64.2 fl (35.1-43.9); Red Blood Count 2.84 M/mm3 (4.6-6.2); White Blood Count 9.7 K/mm3 (4.4-11.0)
[2024-04-18 06:52] LABS: Bedside Glucose 88 mg/dL (74-106)
[2024-04-18 07:01] VITALS: O2SAT 94
[2024-04-18 09:20] VITALS: BP 131/66; PULSE 77; RESP 16; TEMP 36.9; O2SAT 94
[2024-04-18 09:24] VITALS: PULSE 77
[2024-04-18] MEDS: Senna/Docusate Sodium 1 Tablet 2 TABLET PO ×2 (09:24→21:42)
[2024-04-18] MEDS: Metoprolol Tartrate 25 MG Tablet 12.5 MG PO ×2 (09:24→21:39)
[2024-04-18] MEDS: Ranolazine 500 MG Tablet PO ×2 (09:24→21:42)
[2024-04-18] MEDS: Magnesium Chloride 64 MG Delay Rel.Tablet 128 MG PO ×2 (09:24→21:43)
[2024-04-18] MEDS: Furosemide 80 MG Tablet PO (09:24)
[2024-04-18] MEDS: Ascorbic Acid 500 MG Tablet PO ×2 (09:24→21:42)
[2024-04-18] MEDS: Amiodarone 200 MG Tablet 100 MG PO ×2 (09:25→21:42)
[2024-04-18] MEDS: Tamsulosin HCl 0.4 MG Capsule PO ×2 (09:25→17:11)
[2024-04-18] MEDS: dilTIAZem CD 120 MG Capsule PO (09:25)
[2024-04-18] MEDS: Potassium Chloride Oral Tablet 20 MEQ PO (09:25)
[2024-04-18] MEDS: Isosorbide Mononitrate 30 MG Tablet PO (09:25)
[2024-04-18] MEDS: Vitamin B Comp W-C Capsule 1 CAP PO ×2 (09:25→21:41)
[2024-04-18] MEDS: Pantoprazole Sodium 40 MG Tablet PO ×2 (09:25→21:42)
[2024-04-18] MEDS: Empagliflozin 10 MG Tablet PO (09:25)
[2024-04-18] MEDS: APIXABAN 2.5 MG TABLET (WCH) PO ×2 (09:26→21:42)
[2024-04-18] MEDS: proCHLORPERazine 5 MG Tablet 10 MG PO (09:29)
--- NOTE | 2024-04-18 10:56 | RAD_ITS ---
STUDY: X-RAY CHEST REASON FOR EXAM: Male, 83 years old. Cough, shortness of breath and leukocytosis. TECHNIQUE: Frontal and lateral views of the chest. COMPARISON: April 14, 2024 FINDINGS: Stable low volume inspiration with bibasilar atelectasis. Mild hyperlucency of the lung salvador unchanged. Stable mild interstitial prominence with granulomatous calcifications. There is no demonstrated pleural abnormality. Cardiomegaly unchanged. Normal mediastinum and nasrin. Stable prominent central pulmonary arteries. Aortic tortuosity with calcification unchanged. Diffuse thoracic osteopenia with multiple vertebral plasties and marked loss of substance of multiple vertebral bodies with marked increase in kyphosis, unchanged. Normal visualized ribs, clavicles, and shoulders. No abnormality of the visualized soft tissue structures of the upper abdomen. RAD/Chest PA and Lateral IMPRESSION: Stable chest with no acute superimposed finding. Electronically Signed: Ang Bauer MD at 12:42 EDT ,
[2024-04-18 11:44] VITALS: BP 121/82; PULSE 78
[2024-04-18] MEDS: Acetaminophen 500 MG Tablet 1000 MG PO ×2 (11:47→21:39)
[2024-04-18] MEDS: Finasteride 5 MG Tablet PO (11:48)
[2024-04-18 11:50] VITALS: PULSE 78; RESP 16; O2SAT 94
[2024-04-18 21:39] VITALS: BP 123/83; PULSE 72
[2024-04-18] MEDS: traZODone 50 MG Tablet 25 MG PO (21:43)
[2024-04-18] MEDS: Ferrous Sulfate 325 MG Tablet PO (21:43)
[2024-04-18] MEDS: Cholecalciferol (VIT D3) 25 MCG TABLET (1,000 UNITS) PO (21:44)
[2024-04-18] MEDS: Glycerin/Hypromellose/PEG400 15 ml Bottle 1 DRP EACH EYE (21:44)
[2024-04-19] MEDS: guaiFENesin Dm 10 ML UDC PO (05:53)
[2024-04-19] MEDS: Levothyroxine 50 MCG Tablet PO (05:53)
[2024-04-19 06:00] VITALS: BMI 20.2
[2024-04-19 06:21] VITALS: PULSE 77; RESP 18; O2SAT 98
[2024-04-19 06:44] LABS: Bedside Glucose 112 mg/dL (74-106)
[2024-04-19 08:03] VITALS: BP 127/80; PULSE 73; RESP 18; TEMP 36.4; O2SAT 94
[2024-04-19] MEDS: Empagliflozin 10 MG Tablet PO (08:08)
[2024-04-19] MEDS: dilTIAZem CD 120 MG Capsule PO (08:08)
[2024-04-19 08:09] VITALS: PULSE 73
[2024-04-19] MEDS: Ranolazine 500 MG Tablet PO ×2 (08:09→22:13)
[2024-04-19] MEDS: Tamsulosin HCl 0.4 MG Capsule PO ×2 (08:09→18:08)
[2024-04-19] MEDS: Isosorbide Mononitrate 30 MG Tablet PO (08:09)
[2024-04-19] MEDS: Magnesium Chloride 64 MG Delay Rel.Tablet 128 MG PO ×2 (08:09→22:17)
[2024-04-19] MEDS: Metoprolol Tartrate 25 MG Tablet 12.5 MG PO ×2 (08:09→22:18)
[2024-04-19] MEDS: Potassium Chloride Oral Tablet 20 MEQ PO (08:09)
[2024-04-19] MEDS: APIXABAN 2.5 MG TABLET (WCH) PO ×2 (08:09→22:15)
[2024-04-19] MEDS: Senna/Docusate Sodium 1 Tablet 2 TABLET PO ×2 (08:09→22:13)
[2024-04-19] MEDS: Pantoprazole Sodium 40 MG Tablet PO ×2 (08:09→22:14)
[2024-04-19] MEDS: Vitamin B Comp W-C Capsule 1 CAP PO ×2 (08:09→22:12)
[2024-04-19] MEDS: Furosemide 80 MG Tablet PO (08:10)
[2024-04-19] MEDS: Ascorbic Acid 500 MG Tablet PO ×2 (08:10→22:13)
[2024-04-19] MEDS: Amiodarone 200 MG Tablet 100 MG PO ×2 (08:10→22:16)
[2024-04-19] MEDS: proCHLORPERazine 5 MG Tablet 10 MG PO (10:58)
[2024-04-19 11:02] VITALS: O2SAT 91
--- NOTE | 2024-04-19 11:39 | NURSING ---
Updated that a patient and a staff member tested positive for covid. He did not want family notified.
--- NOTE | 2024-04-19 13:15 | PN.RENAL_ITS ---
Subjective Subjective Resting in bed. No overnight events. Has some occasional nausea with emesis. Objective Data Objective Data Vital Signs: Vital Signs Temp Pulse Resp BP Pulse Ox O2 Del Method O2 Flow Rate 97.6 F L 73 18 127/80 H 91 Room Air 91 04/19/24 08:03 04/19/24 08:09 04/19/24 08:03 04/19/24 08:03 04/19/24 11:02 04/19/24 11:02 04/16/24 21:30 Oxygen Flow Rate (L/min) 91 Oxygen Delivery Method Room Air Weight: 59.965 kg Body Mass Index (BMI) 20.0 Intake & Output: Intake and Output for Last 24 Hours 04/17/24 04/18/24 04/19/24 23:59 23:59 23:59 Intake Total 600 / 600 860 / 860 160 / 160 Output Total 325 / 325 Balance 600 / 600 535 / 535 160 / 160 Lab / Micro Data 04/18/24 05:21 04/17/24 05:30 Labs: Laboratory Results - last 24 hr 04/19/24 06:13: POC Glucose 112 H Micro: Microbiology 04/05/24 06:03 Nasal Secretion SARS-CoV-2 Antigen (Rapid) - Final SARS-CoV-2 (COVID 19) 03/29/24 05:55 Nasal Secretion SARS-CoV-2 Antigen (Rapid) - Final Physical Exam Narrative A&Ox3, no apparent distress Breath sounds are equal and clear S1-S2 regular abdomen soft, nontender No edema Assessment & Plan Assessment/Plan (1) CKD (chronic kidney disease) stage 4, GFR 15-29 ml/min: (2) Acute HFrEF (heart failure with reduced ejection fraction): PLAN: Plan This is a very pleasant 83-year-old male with past medical history significant for hypertension, COPD, pulmonary hypertension, heart failure reduced EF, ALVARADO on CPAP, severe pulmonary hypertension, A-fib, coronary artery disease, BPH on Flomax, hyperlipidemia, history of GI bleed followed by Dr. Hodges, CKD stage IV who is currently in TCU for therapy after recent hospitalization where he was admitted to the hospital for acute hypoxia secondary to acute decompensated heart failure. Echo from March 21, 2024: Left atrium severely enlarged, EF 53%, moderate pulmonary hypertension, pulmonary artery systolic pressure 64 mmHg, mild to moderate mitral valve insufficiency. He was also seen for GI for difficulty swallowing. Nephrology consulted in view of history of CKD stage IV. Patient is known to our group. He has chronic kidney disease stage IV with baseline creatinine now ranging around 2.7 to 3.1 mg/dL. -SCr has been around 3 to 3.2mg/dL since end of February. Last week creatinine increased 3.3 mg/dL and we held Lasix over the weekend. Lasix restarted on Tuesday. Last serum creatinine 2.74 mg/dL on 04/17. No hyperkalemia or acidemia. Volume status appears near euvolemic. CXR yesterday clear. On room air, bps acceptable. Weights have been staying the same ~59-60kg. Continue with Lasix 80 mg daily. No changes to medications. Will continue to follow patient while in TCU and will also arrange for appointment at [place] office after discharge from hospital
[2024-04-19] MEDS: Magnesium Citrate 300 ML PO (13:55)
[2024-04-19] MEDS: Cholecalciferol (VIT D3) 25 MCG TABLET (1,000 UNITS) PO (22:12)
[2024-04-19] MEDS: traZODone 50 MG Tablet 25 MG PO (22:15)
[2024-04-19] MEDS: Ferrous Sulfate 325 MG Tablet PO (22:16)
[2024-04-19 22:18] VITALS: BP 129/83; PULSE 78
[2024-04-20 05:56] VITALS: BMI 19.8
[2024-04-20] MEDS: Levothyroxine 50 MCG Tablet PO (06:07)
[2024-04-20 07:05] LABS: Bedside Glucose 88 mg/dL (74-106)
[2024-04-20] MEDS: Potassium Chloride Oral Tablet 20 MEQ PO (09:23)
[2024-04-20] MEDS: dilTIAZem CD 120 MG Capsule PO (09:24)
[2024-04-20] MEDS: Vitamin B Comp W-C Capsule 1 CAP PO ×2 (09:24→21:51)
[2024-04-20] MEDS: Tamsulosin HCl 0.4 MG Capsule PO ×2 (09:24→17:58)
[2024-04-20] MEDS: Amiodarone 200 MG Tablet 100 MG PO ×2 (09:24→21:52)
[2024-04-20] MEDS: Furosemide 80 MG Tablet PO (09:25)
[2024-04-20] MEDS: Isosorbide Mononitrate 30 MG Tablet PO (09:25)
[2024-04-20] MEDS: APIXABAN 2.5 MG TABLET (WCH) PO ×2 (09:25→21:50)
[2024-04-20] MEDS: Empagliflozin 10 MG Tablet PO (09:25)
[2024-04-20 09:26] VITALS: BP 111/64; PULSE 78
[2024-04-20] MEDS: Metoprolol Tartrate 25 MG Tablet 12.5 MG PO ×2 (09:26→21:53)
[2024-04-20] MEDS: Ascorbic Acid 500 MG Tablet PO ×2 (09:26→21:51)
[2024-04-20] MEDS: Ranolazine 500 MG Tablet PO ×2 (09:27→21:52)
[2024-04-20] MEDS: Pantoprazole Sodium 40 MG Tablet PO ×2 (09:27→21:54)
[2024-04-20] MEDS: Senna/Docusate Sodium 1 Tablet 2 TABLET PO (09:27)
[2024-04-20] MEDS: Magnesium Chloride 64 MG Delay Rel.Tablet 128 MG PO ×2 (09:27→21:54)
[2024-04-20] MEDS: Finasteride 5 MG Tablet PO (14:30)
[2024-04-20 18:16] VITALS: BP 111/64; PULSE 78; RESP 18; TEMP 36.5; O2SAT 97
[2024-04-20] MEDS: guaiFENesin Dm 10 ML UDC PO (21:49)
[2024-04-20] MEDS: traZODone 50 MG Tablet 25 MG PO (21:52)
[2024-04-20 21:53] VITALS: BP 120/75; PULSE 79
[2024-04-20] MEDS: Ferrous Sulfate 325 MG Tablet PO (21:53)
[2024-04-20] MEDS: Cholecalciferol (VIT D3) 25 MCG TABLET (1,000 UNITS) PO (21:54)
[2024-04-20 21:55] VITALS: PULSE 79; RESP 16; O2SAT 97
[2024-04-20] MEDS: Glycerin/Hypromellose/PEG400 15 ml Bottle 1 DRP EACH EYE (22:02)
[2024-04-20 22:04] VITALS: BP 120/75; PULSE 79
[2024-04-21] MEDS: Acetaminophen 500 MG Tablet 1000 MG PO (01:58)
[2024-04-21 05:48] VITALS: BMI 19.8
[2024-04-21] MEDS: proCHLORPERazine 5 MG Tablet 10 MG PO (06:30)
[2024-04-21] MEDS: Levothyroxine 50 MCG Tablet PO (06:30)
[2024-04-21 06:52] LABS: Bedside Glucose 86 mg/dL (74-106)
[2024-04-21 08:20] VITALS: PULSE 78
[2024-04-21] MEDS: Empagliflozin 10 MG Tablet PO (08:20)
[2024-04-21] MEDS: Tamsulosin HCl 0.4 MG Capsule PO ×2 (08:20→17:35)
[2024-04-21] MEDS: Amiodarone 200 MG Tablet 100 MG PO ×2 (08:20→20:23)
[2024-04-21] MEDS: dilTIAZem CD 120 MG Capsule PO (08:20)
[2024-04-21] MEDS: Vitamin B Comp W-C Capsule 1 CAP PO ×2 (08:20→20:21)
[2024-04-21] MEDS: APIXABAN 2.5 MG TABLET (WCH) PO ×2 (08:20→20:22)
[2024-04-21] MEDS: Furosemide 80 MG Tablet PO (08:20)
[2024-04-21] MEDS: Potassium Chloride Oral Tablet 20 MEQ PO (08:20)
[2024-04-21] MEDS: Metoprolol Tartrate 25 MG Tablet 12.5 MG PO ×2 (08:20→20:33)
[2024-04-21] MEDS: Isosorbide Mononitrate 30 MG Tablet PO (08:20)
[2024-04-21] MEDS: Magnesium Chloride 64 MG Delay Rel.Tablet 128 MG PO ×2 (08:21→20:24)
[2024-04-21] MEDS: Ranolazine 500 MG Tablet PO ×2 (08:21→20:25)
[2024-04-21] MEDS: Ascorbic Acid 500 MG Tablet PO ×2 (08:21→20:23)
[2024-04-21] MEDS: Pantoprazole Sodium 40 MG Tablet PO ×2 (08:21→20:25)
[2024-04-21] MEDS: Senna/Docusate Sodium 1 Tablet 2 TABLET PO ×2 (08:22→20:25)
[2024-04-21 10:47] VITALS: BP 117/75; PULSE 78; RESP 16; TEMP 36.5; O2SAT 99
[2024-04-21] MEDS: Finasteride 5 MG Tablet PO (12:53)
[2024-04-21] MEDS: Cholecalciferol (VIT D3) 25 MCG TABLET (1,000 UNITS) PO (20:26)
[2024-04-21] MEDS: Ferrous Sulfate 325 MG Tablet PO (20:28)
[2024-04-21] MEDS: Glycerin/Hypromellose/PEG400 15 ml Bottle 1 DRP EACH EYE (20:30)
[2024-04-21] MEDS: traZODone 50 MG Tablet 25 MG PO (20:32)
[2024-04-21 20:33] VITALS: BP 116/76; PULSE 78
[2024-04-22] MEDS: Levothyroxine 50 MCG Tablet PO (05:08)
[2024-04-22 05:59] VITALS: BMI 19.9
[2024-04-22 06:34] LABS: Bedside Glucose 87 mg/dL (74-106)
[2024-04-22] MEDS: proCHLORPERazine 5 MG Tablet 10 MG PO (07:33)
[2024-04-22 09:15] VITALS: BP 110/59; PULSE 79; RESP 17; TEMP 37.1; O2SAT 100
[2024-04-22] MEDS: Vitamin B Comp W-C Capsule 1 CAP PO ×2 (09:19→21:33)
[2024-04-22] MEDS: Potassium Chloride Oral Tablet 20 MEQ PO (09:19)
[2024-04-22] MEDS: Tamsulosin HCl 0.4 MG Capsule PO ×2 (09:19→17:45)
[2024-04-22] MEDS: APIXABAN 2.5 MG TABLET (WCH) PO ×2 (09:20→21:33)
[2024-04-22] MEDS: dilTIAZem CD 120 MG Capsule PO (09:20)
[2024-04-22] MEDS: Amiodarone 200 MG Tablet 100 MG PO ×2 (09:20→21:33)
[2024-04-22 09:21] VITALS: PULSE 79
[2024-04-22] MEDS: Metoprolol Tartrate 25 MG Tablet 12.5 MG PO ×2 (09:21→21:32)
[2024-04-22] MEDS: Empagliflozin 10 MG Tablet PO (09:21)
[2024-04-22] MEDS: Furosemide 80 MG Tablet PO (09:21)
[2024-04-22] MEDS: Isosorbide Mononitrate 30 MG Tablet PO (09:21)
[2024-04-22] MEDS: Pantoprazole Sodium 40 MG Tablet PO ×2 (09:22→21:33)
[2024-04-22] MEDS: Magnesium Chloride 64 MG Delay Rel.Tablet 128 MG PO ×2 (09:22→21:32)
[2024-04-22] MEDS: Ranolazine 500 MG Tablet PO ×2 (09:22→21:32)
[2024-04-22] MEDS: Senna/Docusate Sodium 1 Tablet 2 TABLET PO (09:23)
[2024-04-22] MEDS: Ascorbic Acid 500 MG Tablet PO ×2 (09:23→21:33)
[2024-04-22] MEDS: Finasteride 5 MG Tablet PO (12:18)
[2024-04-22 21:32] VITALS: BP 114/67; PULSE 84
[2024-04-22] MEDS: traZODone 50 MG Tablet 25 MG PO (21:32)
[2024-04-22] MEDS: Ferrous Sulfate 325 MG Tablet PO (21:33)
[2024-04-22] MEDS: Cholecalciferol (VIT D3) 25 MCG TABLET (1,000 UNITS) PO (21:33)
[2024-04-22] MEDS: Glycerin/Hypromellose/PEG400 15 ml Bottle 1 DRP EACH EYE (21:36)
[2024-04-22] MEDS: Acetaminophen 500 MG Tablet 1000 MG PO (23:39)
[2024-04-23] MEDS: Levothyroxine 50 MCG Tablet PO (05:19)
[2024-04-23 06:00] VITALS: BMI 20.1
[2024-04-23 06:40] LABS: Bedside Glucose 83 mg/dL (74-106)
--- NOTE | 2024-04-23 07:35 | PN.TCU_ITS ---
Subjective Subjective Resident seen, examined for regulatory visit. He has no new problems, concerns, issues, complaints. He is progressing in therapy. Objective Data Objective Data Vital Signs: Vital Signs Temp Pulse Resp BP Pulse Ox O2 Del Method O2 Flow Rate 98.7 F 84 17 114/67 100 Room Air 2 04/22/24 09:15 04/22/24 21:32 04/22/24 09:15 04/22/24 21:32 04/22/24 09:15 04/22/24 15:07 04/22/24 09:15 Oxygen Flow Rate (L/min) 2 Oxygen Delivery Method Room Air Weight: 59.988 kg Body Mass Index (BMI) 20.1 Intake & Output: Intake and Output for Last 24 Hours 04/21/24 04/22/24 04/23/24 23:59 23:59 23:59 Intake Total 600 / 600 825 / 825 Balance 600 / 600 825 / 825 Lab / Micro Data 04/18/24 05:21 04/17/24 05:30 Labs: Laboratory Results - last 24 hr 04/23/24 06:08: POC Glucose 83 Micro: Microbiology 04/05/24 06:03 Nasal Secretion SARS-CoV-2 Antigen (Rapid) - Final SARS-CoV-2 (COVID 19) 03/29/24 05:55 Nasal Secretion SARS-CoV-2 Antigen (Rapid) - Final Physical Exam Const alert General Appearance: cooperative HEENT normocephalic Eyes PERRL and EOMs intact bilaterally Neck supple, no JVD and no carotid bruits Resp normal respiratory effort, normal air movement and clear to auscultation bilaterally Cardio regular rate and regular rhythm GI normal to inspection, nondistended, normoactive bowel sounds, non-tender and non-distended Extremity normal capillary refill General Extremity: Negative for edema Skin no rashes or lesions noted General Skin Exam: no breakdown Psych affect normal Appearance: appropriate Assessment & Plan Assessment/Plan (1) Debility: (2) Acute respiratory failure with hypoxia: (3) Acute HFrEF (heart failure with reduced ejection fraction): (4) COPD (chronic obstructive pulmonary disease): (5) Acute kidney injury: (6) Atrial fibrillation: (7) GERD (gastroesophageal reflux disease): (8) BPH (benign prostatic hyperplasia): (9) Hypothyroidism: (10) Allergic rhinitis: (11) Coronary artery disease: PLAN: Plan 83 year old male with below past medical history hospitalized for acute respiratory failure with hypoxia 2/2 acute HFrEF, complicated by acute kidney injury, hypotension, bloody stools, admitted to TCU with debility, here for rehabilitation, strengthening, prior to discharge home alone. * Debility - PT/OT. * Pain - Tylenol 1000mg q6 prn pain (1-10). * Bowel - senna/colace 1 tablet bid, Dulcolax 10mg pr daily prn, Magnesium citrate 300ml po x 1 prn. * Adult immunization - Administer pneumonia vaccine, covid vaccine, flu vaccine as appropriate. * DVT prophylaxis - on Eliquis. * Atrial Fibrillation - Metoprolol 12.5mg bid, Cardizem CD 120mg daily, Amiodarone 100mg bid, Eliquis 2.5mg bid. * Iron deficiency anemia - Ferrous sulfate 325mg qhs, Vitamin C 500mg bid. * Vitamin D deficiency - D3 25mcg qhs. * Acute HFrEF - Metoprolol 12.5mg bid, Imdur 30mg daily, Jardiance 10mg daily, Furosemide 80mg daily. * Coronary Artery Disease- Metoprolol 12.5mg bid, Imdur 30mg daily, Ranexa 500mg bid, Jardiance 10mg daily, NTG 0.4mg sl q5m prn. * GERD - Pantoprazole 40mg bid. * Hypokalemia - KCL 20meq daily. * BPH - Finasteride 5mg daily, Tamsulosin 0.4mg bid. * Hypothyroidism - Levothyroxine 50mcg daily. * Hypomagnesemia - Magnesium chloride 128mg bid. * Insomnia - Trazodone 25mg qhs. * Leg cramps - Vitamin B complex 1 capsule bid.
[2024-04-23] MEDS: proCHLORPERazine 5 MG Tablet 10 MG PO (07:38)
[2024-04-23 07:39] VITALS: PULSE 75
[2024-04-23] MEDS: Isosorbide Mononitrate 30 MG Tablet PO (07:39)
[2024-04-23] MEDS: Ascorbic Acid 500 MG Tablet PO ×2 (07:39→21:28)
[2024-04-23] MEDS: Pantoprazole Sodium 40 MG Tablet PO ×2 (07:39→21:28)
[2024-04-23] MEDS: Metoprolol Tartrate 25 MG Tablet 12.5 MG PO ×2 (07:39→21:29)
[2024-04-23] MEDS: Furosemide 80 MG Tablet PO (07:40)
[2024-04-23] MEDS: APIXABAN 2.5 MG TABLET (WCH) PO ×2 (07:40→21:29)
[2024-04-23] MEDS: Empagliflozin 10 MG Tablet PO (07:40)
[2024-04-23] MEDS: Vitamin B Comp W-C Capsule 1 CAP PO ×2 (07:40→21:30)
[2024-04-23] MEDS: Amiodarone 200 MG Tablet 100 MG PO ×2 (07:40→21:29)
[2024-04-23] MEDS: dilTIAZem CD 120 MG Capsule PO (07:41)
[2024-04-23] MEDS: Tamsulosin HCl 0.4 MG Capsule PO ×2 (07:41→16:57)
[2024-04-23] MEDS: Potassium Chloride Oral Tablet 20 MEQ PO (07:41)
[2024-04-23] MEDS: Ranolazine 500 MG Tablet PO ×2 (07:42→21:28)
[2024-04-23] MEDS: Senna/Docusate Sodium 1 Tablet 2 TABLET PO (07:42)
[2024-04-23] MEDS: Magnesium Chloride 64 MG Delay Rel.Tablet 128 MG PO ×2 (07:47→21:29)
[2024-04-23 07:57] VITALS: BP 139/82; PULSE 75; RESP 18; O2SAT 98
[2024-04-23] MEDS: Finasteride 5 MG Tablet PO (11:48)
[2024-04-23] MEDS: Cholecalciferol (VIT D3) 25 MCG TABLET (1,000 UNITS) PO (21:28)
[2024-04-23 21:29] VITALS: BP 116/83; PULSE 76
[2024-04-23] MEDS: traZODone 50 MG Tablet 25 MG PO (21:29)
[2024-04-23] MEDS: Ferrous Sulfate 325 MG Tablet PO (21:29)
[2024-04-23 21:33] VITALS: BP 116/83; PULSE 76
[2024-04-24 05:48] VITALS: BMI 20.1
[2024-04-24 05:59] LABS: Absolute Lymphocyte Count 1.02 X10^3/uL (0.83-4.51); Absolute Neutrophil Count 7.9 X10^3/uL (2.0-7.7); Basophil# 0.08 X10^3/uL; Basophil% 0.8 % (0-1); Eosinophil# 0.15 X10^3/uL; Eosinophils% 1.5 % (0-5); Hematocrit 33.4 % (40-54); Hemoglobin 11.1 g/dL (13.0-16.5); Lymphocyte # 1.02 X10^3/ul (0.83-4.51); Mean Corp Hgb Conc 33.2 g/dL (32-36); Mean Corpuscular Hgb 37.8 pg (27.0-32.0); Mean Corpuscular Volume 113.6 fL (80-94); Mean Platelet Vol. 9.6 fl (6.2-12.0); Monocyte# 0.91 X10^3/uL; NRBC Flagged by Analyzer 0 % (0-5); Neutrophil # 7.87 X10^3/uL (2.7-7.7); Neutrophil % 77.5 % (47-70); POSITIVE MORPHOLOGY YES; Platelet Count 263 K/mm3 (150-450); RBC Distribution Width CV 15.9 % (11.6-14.6); RBC Distribution Width SD 65.4 fl (35.1-43.9); Red Blood Count 2.94 M/mm3 (4.6-6.2); White Blood Count 10.2 K/mm3 (4.4-11.0)
[2024-04-24] MEDS: Levothyroxine 50 MCG Tablet PO (06:08)
[2024-04-24] MEDS: proCHLORPERazine 5 MG Tablet 10 MG PO (06:10)
[2024-04-24 06:39] LABS: Differential Indicated SCAN CRITERIA MET
[2024-04-24 06:47] LABS: Bedside Glucose 97 mg/dL (74-106)
[2024-04-24 08:55] LABS: Anisocytosis 1+
[2024-04-24 08:57] VITALS: BP 100/65; PULSE 75; RESP 17; TEMP 36.5; O2SAT 97
[2024-04-24] MEDS: Magnesium Chloride 64 MG Delay Rel.Tablet 128 MG PO ×2 (09:02→20:32)
[2024-04-24] MEDS: Empagliflozin 10 MG Tablet PO (09:02)
[2024-04-24] MEDS: APIXABAN 2.5 MG TABLET (WCH) PO ×2 (09:02→20:34)
[2024-04-24] MEDS: Tamsulosin HCl 0.4 MG Capsule PO ×2 (09:02→18:00)
[2024-04-24] MEDS: Potassium Chloride Oral Tablet 20 MEQ PO (09:02)
[2024-04-24] MEDS: Vitamin B Comp W-C Capsule 1 CAP PO ×2 (09:02→20:38)
[2024-04-24] MEDS: Ranolazine 500 MG Tablet PO ×2 (09:03→20:35)
[2024-04-24] MEDS: Pantoprazole Sodium 40 MG Tablet PO ×2 (09:03→20:32)
[2024-04-24] MEDS: Senna/Docusate Sodium 1 Tablet 2 TABLET PO (09:03)
[2024-04-24] MEDS: Ascorbic Acid 500 MG Tablet PO ×2 (09:04→20:36)
[2024-04-24 11:01] LABS: Anion Gap 9 (5-15); BUN 43 mg/dL (7-18); BUN/Creat Ratio 15.2 RATIO (10-20); Calcium,Total 8.8 mg/dL (8.5-10.1); Chloride 103 mmol/L (98-107); Creatinine, Serum 2.83 mg/dL (0.70-1.30); EST Glomerular Filtration Rate 23 mL/min (>60); Est Glom Filt Rate - Afr Amer 28 mL/min (>60); Estimated Creatinine Clearance 17.08 ml/min; Glucose 85 mg/dL (74-106); Potassium 3.9 mmol/L (3.5-5.1); Sodium Level 137 mmol/L (136-145)
[2024-04-24 11:45] VITALS: BP 111/76; PULSE 84
[2024-04-24] MEDS: dilTIAZem CD 120 MG Capsule PO (11:47)
[2024-04-24] MEDS: Amiodarone 200 MG Tablet 100 MG PO ×2 (11:47→20:37)
[2024-04-24 11:48] VITALS: PULSE 84
[2024-04-24] MEDS: Isosorbide Mononitrate 30 MG Tablet PO (11:48)
[2024-04-24] MEDS: Furosemide 80 MG Tablet PO (11:48)
[2024-04-24] MEDS: Metoprolol Tartrate 25 MG Tablet 12.5 MG PO ×2 (11:48→20:33)
[2024-04-24] MEDS: Finasteride 5 MG Tablet PO (11:49)
--- NOTE | 2024-04-24 11:56 | NURSING ---
Patient's morning BP 100/65. Patient stated that is low for me. I don't know if I should take my blood pressure pills. RN reassured patient she can recheck BP later this morning. BP on recheck was 111/76. Patient states he is more comfortable with taking his heart meds. Medications given late d/t this reason. Patient appreciative of care. No further questions/concerns. Call light within reach.
[2024-04-24 20:00] VITALS: PULSE 79; RESP 16; O2SAT 98
[2024-04-24 20:33] VITALS: BP 124/80; PULSE 79
[2024-04-24] MEDS: Ferrous Sulfate 325 MG Tablet PO (20:34)
[2024-04-24] MEDS: traZODone 50 MG Tablet 25 MG PO (20:35)
[2024-04-24] MEDS: Cholecalciferol (VIT D3) 25 MCG TABLET (1,000 UNITS) PO (20:36)
[2024-04-24] MEDS: Glycerin/Hypromellose/PEG400 15 ml Bottle 1 DRP EACH EYE (20:38)
[2024-04-25] MEDS: Acetaminophen 500 MG Tablet 1000 MG PO (02:40)
[2024-04-25 06:00] VITALS: BMI 20.5
[2024-04-25] MEDS: Levothyroxine 50 MCG Tablet PO (06:18)
[2024-04-25] MEDS: proCHLORPERazine 5 MG Tablet 10 MG PO (06:21)
[2024-04-25 06:29] LABS: Bedside Glucose 79 mg/dL (74-106)
[2024-04-25 06:46] VITALS: RESP 16
[2024-04-25] MEDS: Potassium Chloride Oral Tablet 20 MEQ PO (09:05)
[2024-04-25] MEDS: Empagliflozin 10 MG Tablet PO (09:06)
[2024-04-25] MEDS: Isosorbide Mononitrate 30 MG Tablet PO (09:06)
[2024-04-25] MEDS: APIXABAN 2.5 MG TABLET (WCH) PO ×2 (09:06→21:35)
[2024-04-25] MEDS: Furosemide 80 MG Tablet PO (09:06)
[2024-04-25] MEDS: Vitamin B Comp W-C Capsule 1 CAP PO ×2 (09:06→21:33)
[2024-04-25] MEDS: Tamsulosin HCl 0.4 MG Capsule PO ×2 (09:06→18:08)
[2024-04-25] MEDS: dilTIAZem CD 120 MG Capsule PO (09:06)
[2024-04-25] MEDS: Amiodarone 200 MG Tablet 100 MG PO ×2 (09:06→21:33)
[2024-04-25 09:07] VITALS: BP 102/68; PULSE 76
[2024-04-25] MEDS: Metoprolol Tartrate 25 MG Tablet 12.5 MG PO ×2 (09:07→21:34)
[2024-04-25] MEDS: Magnesium Chloride 64 MG Delay Rel.Tablet 128 MG PO ×2 (09:07→21:29)
[2024-04-25] MEDS: Ascorbic Acid 500 MG Tablet PO ×2 (09:08→21:33)
[2024-04-25] MEDS: Pantoprazole Sodium 40 MG Tablet PO ×2 (09:08→21:29)
[2024-04-25] MEDS: Senna/Docusate Sodium 1 Tablet 2 TABLET PO ×2 (09:08→21:28)
[2024-04-25] MEDS: Ranolazine 500 MG Tablet PO ×2 (09:08→21:29)
[2024-04-25 12:33] VITALS: BP 102/68; PULSE 76; RESP 20; TEMP 36.6; O2SAT 97
[2024-04-25] MEDS: Finasteride 5 MG Tablet PO (13:32)
--- NOTE | 2024-04-25 16:13 | CASEMGMT ---
Social Work SW met with patient to discuss DC plans. IDT set DC date for 05/01. Explained appeal rights and options for DC: home with HHC, AL or SNF. Explained financial liability. Recommending AL for ongoing oversight with care needs. Pt stated he cannot pay OOP for AL or SNF and will need to go home. SW offered skilled HHC and inquired about HHC agency. Pt used [facility] prior and would like to use again. SW to refer. Pt's MIKE to transport. No DME needs. Pt does not qualify for O2. Pt expressed understanding. SW phoned referral to [facility] for PT/OT/SN/SW. Plan: DC home alone 05/01, [facility] PT/OT/SN/NAUN Bailey
--- NOTE | 2024-04-25 20:34 | PCM.DC.SUM ---
Providers Date of Admission: 03/26/24 Primary Care Physician: Dr. César Chinchilla MD Consultations 03/27/24 07:28 Consult: Nephrology Routine Consulting Provider: Claudia Paul Reason for Consult: Acute on chronic kidney failure. EMERGENT Consult: No MD Notified: Yes Date Notified: 03/27/24 Time Notified: 10:18 Method of Notification: Verbal Reason For Visit: HF EXACERBATION HYPOXIA Diagnosis Discharge Diagnosis (1) Debility: Status: Acute Code(s): R53.81 - Other malaise (2) Acute respiratory failure with hypoxia: Status: Resolved Code(s): J96.01 - Acute respiratory failure with hypoxia (3) Acute HFrEF (heart failure with reduced ejection fraction): Status: Acute Code(s): I50.21 - Acute systolic (congestive) heart failure (4) COPD (chronic obstructive pulmonary disease): Status: Chronic Code(s): J44.9 - Chronic obstructive pulmonary disease, unspecified (5) Acute kidney injury: Status: Acute Code(s): N17.9 - Acute kidney failure, unspecified (6) Atrial fibrillation: Status: Acute Code(s): I48.91 - Unspecified atrial fibrillation (7) GERD (gastroesophageal reflux disease): Status: Acute Code(s): K21.9 - Gastro-esophageal reflux disease without esophagitis (8) BPH (benign prostatic hyperplasia): Status: Acute Code(s): N40.0 - Benign prostatic hyperplasia without lower urinary tract symptoms (9) Hypothyroidism: Status: Acute Code(s): E03.9 - Hypothyroidism, unspecified (10) Allergic rhinitis: Status: Acute Code(s): J30.9 - Allergic rhinitis, unspecified (11) Coronary artery disease: Status: Acute Code(s): I25.10 - Atherosclerotic heart disease of [place] coronary artery without angina pectoris Plan 83 year old male with below past medical history hospitalized for acute respiratory failure with hypoxia 2/2 acute HFrEF, complicated by acute kidney injury, hypotension, bloody stools, admitted to TCU with debility, here for rehabilitation, strengthening, prior to discharge home alone. Debility - PT/OT. Pain - Tylenol 1000mg q6 prn pain (1-10). Bowel - senna/colace 1 tablet bid, Dulcolax 10mg pr daily prn, Magnesium citrate 300ml po x 1 prn. Adult immunization - Administer pneumonia vaccine, covid vaccine, flu vaccine as appropriate. DVT prophylaxis - on Eliquis. Atrial Fibrillation - Metoprolol 12.5mg bid, Cardizem CD 120mg daily, Amiodarone 100mg bid, Eliquis 2.5mg bid. Iron deficiency anemia - Ferrous sulfate 325mg qhs, Vitamin C 500mg bid. Vitamin D deficiency - D3 25mcg qhs. Acute HFrEF - Metoprolol 12.5mg bid, Imdur 30mg daily, Jardiance 10mg daily, Furosemide 80mg daily. Coronary Artery Disease- Metoprolol 12.5mg bid, Imdur 30mg daily, Ranexa 500mg bid, Jardiance 10mg daily, NTG 0.4mg sl q5m prn. GERD - Pantoprazole 40mg bid. Hypokalemia - KCL 20meq daily. BPH - Finasteride 5mg daily, Tamsulosin 0.4mg bid. Hypothyroidism - Levothyroxine 50mcg daily. Hypomagnesemia - Magnesium chloride 128mg bid. Insomnia - Trazodone 25mg qhs. Leg cramps - Vitamin B complex 1 capsule bid. Medications at Discharge Home Medications tamsulosin 0.4 mg capsule 0.4 mg PO BID PROSTATE 11/18/21 vitamin B complex 1 cap PO BID SUPPLEMENT 05/01/22 ascorbic acid (vitamin C) 500 mg tablet 500 mg PO BID SUPPLEMENT 07/20/22 finasteride 5 mg tablet 5 mg PO 1200 PROSTATE 08/05/22 cholecalciferol (vitamin D3) 25 mcg (1,000 unit) capsule (Vitamin D3) 1,000 unit PO QHS SUPPLEMENT 02/19/23 empagliflozin 10 mg tablet (Jardiance) 10 mg PO DAILY DIABTETES #0 tabs 07/22/23 nitroglycerin 0.4 mg sublingual tablet 0.4 mg sublingual Q5M PRN Cardiac/Chest Pain #0 tabs 07/22/23 isosorbide mononitrate 30 mg tablet,extended release 24 hr 30 mg PO DAILY CHEST PAIN 02/28/24 magnesium chloride 64 mg (magnesium chloride) tablet,delayed release (Mag 64) 128 mg PO BID SUPPLEMENT 02/28/24 metoprolol tartrate 25 mg tablet 12.5 mg PO BID BLOOD PRESSURE 02/28/24 pantoprazole 40 mg tablet,delayed release 40 mg PO BID GERD 02/28/24 trazodone 50 mg tablet 25 mg PO QHS INSOMNIA 02/28/24 amiodarone 100 mg tablet 100 mg PO BID HEART #180 tabs 02/29/24 ferrous sulfate 325 mg (65 mg iron) tablet (Feosol) 325 mg PO QHS ANEMIA 03/20/24 levothyroxine 50 mcg tablet 50 mcg PO DAILY THYROID 03/20/24 apixaban 2.5 mg tablet (Eliquis) 2.5 mg PO BID Anticoagulant #60 tabs 03/24/24 furosemide 80 mg tablet 80 mg PO DAILY Diuretic #40 tabs 03/24/24 acetaminophen 500 mg tablet 1,000 mg (2 x 500 mg) PO Q6H PRN PRN Pain Score 1-10 #0 tabs 04/25/24 diltiazem HCl 120 mg capsule,extended release 24 hr 120 mg PO DAILY 30 days #30 caps 04/25/24 potassium chloride 20 mEq tablet,extended release(part/cryst) 20 meq PO DAILYCM #0 tabs 04/25/24 Hospital Course Operations None Procedures None Summary of Care Provided Minutes Spent on Discharge: 35 Hospital Course: 83 year old male with below past medical history hospitalized for acute respiratory failure with hypoxia 2/2 acute HFrEF, complicated by acute kidney injury, hypotension, bloody stools, admitted to TCU with debility, here for rehabilitation, strengthening, prior to discharge home alone. Discharge home alone 05/01/2024, [facility] PT/OT/SN/SW. Physical Exam Const alert General Appearance: cooperative HEENT normocephalic Eyes PERRL and EOMs intact bilaterally Neck supple, no JVD and no carotid bruits Resp normal respiratory effort, normal air movement and clear to auscultation bilaterally Cardio regular rate and regular rhythm GI normal to inspection, nondistended, normoactive bowel sounds, non-tender and non-distended Extremity normal capillary refill General Extremity: Negative for edema Skin no rashes or lesions noted General Skin Exam: no breakdown Psych affect normal Appearance: appropriate Weight / BMI Weight Weight: 60.01 kg Body Mass Index (BMI) 20.5 ABG / Lab / Microbiology Data 04/24/24 05:23 04/24/24 05:23 Laboratory: Laboratory Results - last 24 hr 04/25/24 06:02: POC Glucose 79 Microbiology: Microbiology 04/05/24 06:03 Nasal Secretion SARS-CoV-2 Antigen (Rapid) - Final SARS-CoV-2 (COVID 19) 03/29/24 05:55 Nasal Secretion SARS-CoV-2 Antigen (Rapid) - Final D/C Instructions Discharge Diet: No restrictions Discharge Activity: Return to Normal Activity, May Shower and Use Walker Weight Bearing Status: Weight bearing as tolerated Call your doctor if you observe: Fever of 101 or Higher, Inability to urinate, Inability to have a bowel movement, Shortness of breath, Dizziness, Fainting spells, Swelling in the ankles, Chest pain and Uncontrolled pain Additional Instructions: Discharge home alone 05/01/2024, [facility] PT/OT/SN/SW. Please Follow Up With: eye appt in [place] Meaningful Use Info Meaningful Use Meaningful Use Diagnoses (Choose all that apply): None applicable Ischemic Stroke Statin Dosing Therapy Reference: STATIN DOSE THERAPY REFERENCE: * Patients > 75 years receive moderate or high dose statin therapy. * Patients 75 years or YOUNGER should receive HIGH intensity statin dose unless contraindicated. You will be required to document reason for non-treatment if statin daily dose does not meet guidelines. HIGH DOSE STATIN THERAPY DAILY Atorvastatin > than or = to 40 mg Rosuvastatin > than or = to 20 mg Amlodipine + Atorvastatin > than or = to 2.5/40 mg Ezetimibe + Simvastatin 10/80 mg Simvastatin 80mg Discharge Plan Admission Admit Date/Time: 03/26/24 17:28 Primary Reason for Your Visit: Debility. Attending Provider: Marcus Samuel Chi Primary Care Provider: César Chinchilla Consulting Providers: Claudia Paul Instructions Additional Instructions / Restrictions: Discharge home alone 05/01/2024, [facility] PT/OT/SN/SW. Discharge Orders/Prescriptions Prescriptions: New acetaminophen 500 mg Tablet 1,000 mg PO Q6H PRN PRN (Reason: Pain Score 1-10) Qty: 0 0RF potassium chloride 20 mEq Tablet,Er Particles/Crystals 20 meq PO DAILYCM Qty: 0 0RF diltiazem HCl 120 mg Capsule,Extended Release 24hr 120 mg PO DAILY 30 Days Qty: 30 0RF Continued tamsulosin 0.4 mg capsule 0.4 mg PO BID ascorbic acid (vitamin C) 500 mg tablet 500 mg PO BID finasteride 5 mg tablet 5 mg PO 1200 trazodone 50 mg tablet 25 mg PO QHS metoprolol tartrate 25 mg tablet 12.5 mg PO BID magnesium chloride [Mag 64] 64 mg tablet,delayed release (DR/EC) 128 mg PO BID pantoprazole 40 mg tablet,delayed release (DR/EC) 40 mg PO BID isosorbide mononitrate 30 mg tablet extended release 24 hr 30 mg PO DAILY vitamin B complex Capsule 1 cap PO BID cholecalciferol (vitamin D3) [Vitamin D3] 25 mcg (1,000 unit) Capsule 1,000 unit PO QHS nitroglycerin 0.4 mg Tablet, Sublingual 0.4 mg sublingual Q5M PRN (Reason: Cardiac/Chest Pain) Qty: 0 0RF Jardiance 10 mg Tablet 10 mg PO DAILY Qty: 0 0RF ferrous sulfate [Feosol] 325 mg (65 mg iron) tablet 325 mg PO QHS levothyroxine 50 mcg Tablet 50 mcg PO DAILY Eliquis 2.5 mg tablet 2.5 mg PO BID Qty: 60 2RF furosemide 80 mg Tablet 80 mg PO DAILY Qty: 40 2RF amiodarone 100 mg tablet 100 mg PO BID Qty: 180 3RF Discontinued clonidine HCl 0.1 mg tablet 0.05 - 0.1 mg PO DAILY PRN (Reason: BLOOD PRESSURE ) Patient Comments: RX NOT ON [facility] BUBBLE PACKAGING LIST ( OF 03/20/24). RX WAS CONTINUED BY JAMES HERRERA FROM PTS MOST RECENT ADMISSION TO THE HOSPITAL potassium chloride 20 mEq tablet,ER particles/crystals 20 meq PO TID hydralazine 50 mg Tablet 50 mg PO 4X/DAY PRN (Reason: BLOOD PRESSURE ) Patient Comments: RX NOT ON [facility] BUBBLE PACKAGING LIST ( OF 03/20/24). RX WAS CONTINUED BY JAMES HERRERA FROM PTS MOST RECENT ADMISSION TO THE HOSPITAL diltiazem HCl 120 mg capsule,extended release 24hr 120 mg PO DAILY Patient Comments: RX NOT ON [facility] BUBBLE PACKAGING LIST ( OF 03/20/24). RX WAS CONTINUED BY JAMES HERRERA FROM PTS MOST RECENT ADMISSION TO THE HOSPITAL famotidine 20 mg tablet 20 mg PO DAILY Qty: 0 0RF Patient Comments: RX WAS DISCONTINUED BY JAMES HERRERA FROM PTS MOST RECENT ADMISSION TO [facility]. [facility] HAS IT ON THEIR BUBBLE PACKAGING LIST ( OF 03/20/24) loratadine [Claritin] 10 mg tablet 10 mg PO QODAY Qty: 0 0RF ranolazine 500 mg tablet extended release 12 hr 500 mg PO BID Qty: 60 11RF Patient Comments: RX NOT ON [facility] BUBBLE PACKAGING LIST ( OF 03/20/24). RX WAS CONTINUED BY JAMES HERRERA FROM [facility] MOST RECENT ADMISSION TO THE HOSPITAL Referrals / Follow Up: César Chinchilla MD [Primary Care Provider] - 05/08/24 11:40 am Disposition Disposition (needs filled in before D/C Order can be placed): Home Health Service
[2024-04-25] MEDS: traZODone 50 MG Tablet 25 MG PO (21:29)
[2024-04-25] MEDS: Glycerin/Hypromellose/PEG400 15 ml Bottle 1 DRP EACH EYE (21:32)
[2024-04-25 21:34] VITALS: BP 125/80; PULSE 75
[2024-04-25] MEDS: Ferrous Sulfate 325 MG Tablet PO (21:35)
[2024-04-25] MEDS: Cholecalciferol (VIT D3) 25 MCG TABLET (1,000 UNITS) PO (21:35)
[2024-04-26 06:00] VITALS: BMI 20.5
[2024-04-26] MEDS: Levothyroxine 50 MCG Tablet PO (06:08)
[2024-04-26 06:45] LABS: Bedside Glucose 90 mg/dL (74-106)
[2024-04-26] MEDS: Tamsulosin HCl 0.4 MG Capsule PO ×2 (08:09→17:41)
[2024-04-26] MEDS: Potassium Chloride Oral Tablet 20 MEQ PO (08:09)
[2024-04-26] MEDS: dilTIAZem CD 120 MG Capsule PO (08:15)
[2024-04-26] MEDS: Vitamin B Comp W-C Capsule 1 CAP PO ×2 (08:15→22:27)
[2024-04-26] MEDS: Amiodarone 200 MG Tablet 100 MG PO ×2 (08:16→22:27)
[2024-04-26] MEDS: APIXABAN 2.5 MG TABLET (WCH) PO ×2 (08:16→22:26)
[2024-04-26] MEDS: Isosorbide Mononitrate 30 MG Tablet PO (08:17)
[2024-04-26] MEDS: Furosemide 80 MG Tablet PO (08:17)
[2024-04-26] MEDS: Empagliflozin 10 MG Tablet PO (08:17)
[2024-04-26 08:18] VITALS: BP 134/76; PULSE 79
[2024-04-26] MEDS: Metoprolol Tartrate 25 MG Tablet 12.5 MG PO ×2 (08:18→22:29)
[2024-04-26] MEDS: Magnesium Chloride 64 MG Delay Rel.Tablet 128 MG PO ×2 (08:19→22:26)
[2024-04-26] MEDS: Pantoprazole Sodium 40 MG Tablet PO ×2 (08:19→22:25)
[2024-04-26] MEDS: Ranolazine 500 MG Tablet PO ×2 (08:19→22:25)
[2024-04-26] MEDS: Senna/Docusate Sodium 1 Tablet 2 TABLET PO ×2 (08:20→22:28)
[2024-04-26] MEDS: Ascorbic Acid 500 MG Tablet PO ×2 (08:20→22:26)
[2024-04-26 10:00] VITALS: PULSE 79; RESP 16; O2SAT 97
[2024-04-26] MEDS: Finasteride 5 MG Tablet PO (13:11)
--- NOTE | 2024-04-26 14:25 | PCM.PN.DRR ---
TCU RX Drug Regimen Review Subjective/Objective Subjective/Objective: Subjective: TCU monthly medication list review. Objective: Allergies diclofenac Allergy (Verified 04/17/24 13:29) rash prednisone Allergy (Verified 04/17/24 13:29) Rash Current Medications Generic Name Dose Route Start Last Admin Trade Name Freq PRN Reason Stop Dose Admin Acetaminophen 1,000 mg 03/27/24 04:57 04/25/24 02:40 Acetaminophen 500 Mg Tablet PO 1,000 mg Q6H PRN PRN Administration Pain Score 1-10 Amiodarone HCl 100 mg 03/26/24 22:00 04/26/24 08:16 Amiodarone 200 Mg Tablet PO 100 mg BID ILEANA Administration Apixaban 2.5 mg 03/26/24 22:00 04/26/24 08:16 Apixaban 2.5 Mg Tablet ([facility]) PO 2.5 mg BID ILEANA Administration Ascorbic Acid 500 mg 03/26/24 22:00 04/26/24 08:20 Ascorbic Acid 500 Mg Tablet PO 500 mg BID ILEANA Administration Bisacodyl 10 mg 03/26/24 17:34 04/14/24 11:39 Bisacodyl 10 Mg Suppository RC 10 mg DAILY PRN PRN Administration Constipation Cholecalciferol 25 mcg 03/26/24 22:00 04/25/24 21:35 Cholecalciferol (Vit D3) 25 Mcg Tablet (1,000 Units) PO 25 mcg QHS ILEANA Administration Diltiazem HCl 120 mg 03/27/24 10:00 04/26/24 08:15 Diltiazem Cd 120 Mg Capsule PO 120 mg DAILY ILEANA Administration Protocol Empagliflozin 10 mg 03/27/24 10:00 04/26/24 08:17 Empagliflozin 10 Mg Tablet PO 10 mg DAILY ILEANA Administration Ferrous Sulfate 325 mg 03/26/24 22:00 04/25/24 21:35 Ferrous Sulfate 325 Mg Tablet PO 325 mg QHS ILEANA Administration Finasteride 5 mg 03/27/24 12:00 04/26/24 13:11 Finasteride 5 Mg Tablet PO 5 mg 1200 ILEANA Administration Furosemide 80 mg 03/27/24 10:00 04/26/24 08:17 Furosemide 80 Mg Tablet PO 80 mg DAILY ILEANA Administration Protocol Glycerin/Hypromellose/Polyethylene 1 drp 03/27/24 08:20 08/28/24 21:32 Glycerin/Hypromellose/Ehy322 15 Ml Bottle EACH EYE 1 drp Q1H PRN Administration DRY EYES Guaifenesin 10 ml 04/07/24 14:35 04/20/24 21:49 Guaifenesin Dm 10 Ml Udc PO 10 ml Q6H PRN PRN Administration COUGH Hydrocortisone Acetate 25 mg 03/28/24 17:44 04/03/24 21:34 Hydrocortisone 25 Mg Suppository RC 25 mg BID PRN PRN Administration HEMORRHOIDS Isosorbide Mononitrate 30 mg 03/27/24 10:00 04/26/24 08:17 Isosorbide Mononitrate 30 Mg Tablet PO 30 mg DAILY ILEANA Administration Protocol Levothyroxine Sodium 50 mcg 03/27/24 06:00 04/26/24 06:08 Levothyroxine 50 Mcg Tablet PO 50 mcg DAILY@0600 ILEANA Administration Magnesium Chloride 128 mg 03/26/24 22:00 04/26/24 08:19 Magnesium Chloride 64 Mg Delay Rel.Tablet PO 128 mg BID ILEANA Administration Magnesium Citrate 300 ml 03/26/24 17:34 04/19/24 13:55 Magnesium Citrate 300 Ml PO 300 ml X1 PRN Administration Constipation Menthol 1 applic 03/28/24 16:45 04/13/24 05:21 Menthol 226.8 Gm Jar TOPICAL 1 applic TID PRN PRN Administration knee pain Metoprolol Tartrate 12.5 mg 03/26/24 22:00 04/26/24 08:18 Metoprolol Tartrate 25 Mg Tablet PO 12.5 mg BID ILEANA Administration Protocol Multivitamins 1 cap 03/26/24 22:00 04/26/24 08:15 Vitamin B Comp W-C Capsule PO 1 cap BID ILEANA Administration Nitroglycerin 0.4 mg 03/26/24 17:59 Nitroglycerin (Inpatient Use) 0.4 Mg Tab.Subl SL Q5M PRN CARDIAC/CHEST PAIN Pantoprazole Sodium 40 mg 03/26/24 22:00 04/26/24 08:19 Pantoprazole Sodium 40 Mg Tablet PO 40 mg BID ILEANA Administration Potassium Chloride 20 meq 04/14/24 08:00 04/26/24 08:09 Potassium Chloride Oral Tablet 20 Meq PO 20 meq DAILYCM ILEANA Administration Prochlorperazine Maleate 10 mg 04/15/24 09:45 04/25/24 06:21 Prochlorperazine 5 Mg Tablet PO 10 mg Q6H PRN PRN Administration NAUSEA/VOMITING Ranolazine 500 mg 03/26/24 22:00 04/26/24 08:19 Ranolazine 500 Mg Tablet PO 500 mg BID ILEANA Administration Senna/Docusate Sodium 2 tablet 04/16/24 10:00 04/26/24 08:20 Senna/Docusate Sodium 1 Tablet PO 2 tablet BID ILEANA Administration Sodium Chloride 10 - 40 ml 03/26/24 17:28 0.9% Saline Lock 10 Ml Syringe IV UD PRN SALINE FLUSH Sodium Chloride 2 spray 04/07/24 14:35 04/07/24 16:44 Sodium Chloride 0.65% 1 [place].Btl NASAL 2 spray TID PRN PRN Administration NASAL DRYNESS Tamsulosin HCl 0.4 mg 03/26/24 18:00 04/26/24 08:09 Tamsulosin Hcl 0.4 Mg Capsule PO 0.4 mg BID@0830,1730 ILEANA Administration Trazodone HCl 25 mg 03/26/24 22:00 04/25/24 21:29 Trazodone 50 Mg Tablet PO 25 mg QHS ILEANA Administration Problem List (Updated 04/03/24 @ 00:01 by Marissa Melo) CKD (chronic kidney disease) stage 4, GFR 15-29 ml/min (Chronic) Acute kidney injury (Acute) COPD (chronic obstructive pulmonary disease) (Chronic) Acute HFrEF (heart failure with reduced ejection fraction) (Acute) GERD (gastroesophageal reflux disease) (Acute) Atrial fibrillation (Acute) Coronary artery disease (Acute) BPH (benign prostatic hyperplasia) (Acute) Debility (Acute) Allergic rhinitis (Acute) Hypothyroidism (Acute) Vital Signs Temp Pulse Resp BP Pulse Ox O2 Del Method O2 Flow Rate 97.9 F 79 16 134/76 H 97 Room Air 2 04/25/24 12:33 04/26/24 10:00 04/26/24 10:00 04/26/24 08:18 04/26/24 10:00 04/26/24 10:00 04/25/24 12:33 Oxygen Flow Rate (L/min) 2 Oxygen Delivery Method Room Air Weight: 61.377 kg Body Mass Index (BMI) 20.5 Sodium 137 mmol/L (136-145) 04/24/24 05:23 Potassium 3.9 mmol/L (3.5-5.1) 04/24/24 05:23 Chloride 103 mmol/L (98-107) 04/24/24 05:23 Carbon Dioxide 25.0 mmol/L (21.0-32.0) 04/24/24 05:23 Anion Gap 9 (5-15) 04/24/24 05:23 BUN 43 mg/dL (7-18) H 04/24/24 05:23 Creatinine 2.83 mg/dL (0.70-1.30) H 04/24/24 05:23 Est GFR (MDRD) Af Amer 28 mL/min (>60) L 04/24/24 05:23 Est GFR (MDRD) Non-Af 23 mL/min (>60) L 04/24/24 05:23 BUN/Creatinine Ratio 15.2 RATIO (10-20) 04/24/24 05:23 Glucose 85 mg/dL (74-106) 04/24/24 05:23 Assessment/Plan: 1. Pain: acetaminophen 1000mg PO Q6H PRN pain 1-10, Menthol topically TID PRN. Please continue to monitor for increased pain, local irritation, and PRN usage. -The patient has averaged ~1 dose every 24-48hrs. Pain appears managed at this time. 2. Bowel/ Hemorrhoids: senna/docusate 2T PO BID, bisacodyl 10mg RC daily PRN constipation and magnesium citrate 300mL PO x1 PRN constipation, Hydrocortisone 25mg MS BID PRN. Please continue to monitor for constipation and PRN usage. - The patient's last documented BM was 04/17/24. The patient has only used 1 PRN Dulcolax dose in the past month. Please consider giving additional PRN medication doses since patient has not had a BM in 9 days, thank you. 3. Atrial fibrillation/acute HFrEF/CAD: metoprolol tartrate 12.5mg PO BID, diltiazem CD 120mg PO daily, amiodarone 100mg PO BID, isosorbide mononitrate 30mg PO daily, ranolazine 500mg PO BID, empagliflozin 10mg PO daily, furosemide 80mg PO daily, apixaban 2.5mg PO BID and nitroglycerin 0.4mg SL Q5M PRN chest pain. Resident has not used and PRN doses. Please continue to monitor HR (last 79), BP (last 134/76), potassium (last 3.9mmol/L), sodium (last 137 mmol/L), chest pain, PRN usage, hemoglobin A1c (last 5.2%), S/S of bleeding, swelling and hemoglobin (last 11.1g/dL). 4. Iron deficiency anemia: ferrous sulfate 325mg PO QHS and ascorbic acid 500mg PO BID. Please continue to monitor iron studies (last 07/22/23), hemoglobin, constipation and dark stools. 5. Hypothyroidism: levothyroxine 50mcg PO daily. Please continue to monitor TSH (last 03/26/24) and S/S of hypo/hyperhtyroidism. 6. GERD: pantoprazole 40mg PO BID. Please continue to monitor for S/S of GERD and diarrhea (BEERs medication). 7. BPH: finasteride 5mg PO daily and tamsulosin 0.4mg PO BID. Please continue to monitor for S/S of BPH, GI side effects and BP. 8. Hypokalemia/hypomagnesemia: potassium chloride 20mEq PO Daily and magnesium chloride 128mg PO BID. Please continue to monitor potassium levels and magnesium (last 2.3 03/23/24). 9. Nausea: Prochlorperazine 10mg PO Q6h PRN. Please continue to monitor for dizziness, drowsiness, EPS symptoms, PRN medication usage. 10. Cough/ Dry Eyes: Guaifenesin DM 10mL PO Q6h PRN, Artificial Tears ophthalmically Q1h PRN. 11. Leg cramps/vitamin D deficiency: vitamin B complex 1C PO BID and cholecalciferol 25mcg PO QHS. Please continue to monitor vitamin D levels (last 12/23/23). Assessment/Plan for indications treated with psychotropic medications: 1. Insomnia: trazodone 25mg PO QHS. Please continue to monitor for excessive sedation and headache. Medical chart and medication regimen reviewed. The following medication irregularities or issues were identified: 1. Trazodone 25mg PO QHS. Please consider GDR by 08/2024 if clinically appropriate. Thanks. Date Date of Note:: 04/26/24
[2024-04-26 15:48] VITALS: BP 134/76; PULSE 79; RESP 16; O2SAT 97
[2024-04-26] MEDS: traZODone 50 MG Tablet 25 MG PO (22:25)
[2024-04-26] MEDS: Ferrous Sulfate 325 MG Tablet PO (22:25)
[2024-04-26] MEDS: Cholecalciferol (VIT D3) 25 MCG TABLET (1,000 UNITS) PO (22:27)
[2024-04-26 22:29] VITALS: BP 116/81; PULSE 78
[2024-04-26 22:36] VITALS: BP 116/81; PULSE 78
[2024-04-27] VITALS (7 sets, daily range): BP systolic 106–121; BP diastolic 57–71; PULSE 48–93; RESP 16; TEMP 36.4; O2SAT 94–97; BMI 19.9
[2024-04-27] MEDS: Acetaminophen 500 MG Tablet 1000 MG PO (00:27)
[2024-04-27] MEDS: Levothyroxine 50 MCG Tablet PO (06:04)
[2024-04-27 06:57] LABS: Bedside Glucose 88 mg/dL (74-106)
[2024-04-27] MEDS: proCHLORPERazine 5 MG Tablet 10 MG PO (08:22)
[2024-04-27] MEDS: Magnesium Chloride 64 MG Delay Rel.Tablet 128 MG PO ×2 (09:06→22:44)
[2024-04-27] MEDS: Isosorbide Mononitrate 30 MG Tablet PO (09:06)
[2024-04-27] MEDS: APIXABAN 2.5 MG TABLET (WCH) PO ×2 (09:06→22:47)
[2024-04-27] MEDS: Amiodarone 200 MG Tablet 100 MG PO ×2 (09:06→22:45)
[2024-04-27] MEDS: Pantoprazole Sodium 40 MG Tablet PO ×2 (09:07→22:45)
[2024-04-27] MEDS: Metoprolol Tartrate 25 MG Tablet 12.5 MG PO ×2 (09:07→22:44)
[2024-04-27] MEDS: Empagliflozin 10 MG Tablet PO (09:08)
[2024-04-27] MEDS: Ascorbic Acid 500 MG Tablet PO ×2 (09:08→22:47)
[2024-04-27] MEDS: Furosemide 80 MG Tablet PO (09:08)
[2024-04-27] MEDS: Ranolazine 500 MG Tablet PO ×2 (09:09→22:45)
[2024-04-27] MEDS: Tamsulosin HCl 0.4 MG Capsule PO ×2 (09:09→17:16)
[2024-04-27] MEDS: dilTIAZem CD 120 MG Capsule PO (09:09)
[2024-04-27] MEDS: Vitamin B Comp W-C Capsule 1 CAP PO ×2 (09:09→22:44)
[2024-04-27] MEDS: Potassium Chloride Oral Tablet 20 MEQ PO (09:12)
[2024-04-27] MEDS: Finasteride 5 MG Tablet PO (11:31)
--- NOTE | 2024-04-27 13:35 | RAD_ITS ---
STUDY: X-RAY - ABDOMEN/PELVIS REASON FOR EXAM: Male, 83 years old. Nausea. TECHNIQUE: Frontal views COMPARISON: None. FINDINGS: Normal visualized lung bases. There is an unremarkable bowel gas pattern. There is no demonstrated free abdominal air. The visualized liver, spleen and kidneys are grossly normal in size and morphology. Normal soft tissue structures. Degenerative vertebral changes with scoliosis. Vertebroplasty at multiple lower thoracic and upper lumbar levels. Laminectomy defects at L4 and L5. RAD/Abdomen Single View IMPRESSION: Normal x-ray examination of the abdomen and pelvis. Electronically Signed: Archie Maradiaga DO at 20:59 EDT ,
[2024-04-27] MEDS: Electrolyte Solution/Peg's 4000 ML 1000 ML PO (15:58)
[2024-04-27] MEDS: traZODone 50 MG Tablet 25 MG PO (22:46)
[2024-04-27] MEDS: Ferrous Sulfate 325 MG Tablet PO (22:46)
[2024-04-27] MEDS: Cholecalciferol (VIT D3) 25 MCG TABLET (1,000 UNITS) PO (22:47)
[2024-04-28] MEDS: Levothyroxine 50 MCG Tablet PO (06:37)
[2024-04-28 07:27] VITALS: RESP 16
[2024-04-28] MEDS: Potassium Chloride Oral Tablet 20 MEQ PO (07:59)
[2024-04-28] MEDS: Tamsulosin HCl 0.4 MG Capsule PO ×2 (07:59→17:46)
--- NOTE | 2024-04-28 08:03 | NURSING ---
Patient began dry-heaving when giving 8am medications. Had just started eating breakfast. Was given Go-Lytely last evening due to constipation. Will continue to monitor.
[2024-04-28] MEDS: proCHLORPERazine 5 MG Tablet 10 MG PO (10:25)
[2024-04-28 10:57] LABS: Bedside Glucose 84 mg/dL (74-106)
[2024-04-28] MEDS: Vitamin B Comp W-C Capsule 1 CAP PO ×2 (10:59→22:31)
[2024-04-28] MEDS: dilTIAZem CD 120 MG Capsule PO (10:59)
[2024-04-28] MEDS: APIXABAN 2.5 MG TABLET (WCH) PO ×2 (11:00→22:37)
[2024-04-28] MEDS: Amiodarone 200 MG Tablet 100 MG PO ×2 (11:00→22:36)
[2024-04-28] MEDS: Empagliflozin 10 MG Tablet PO (11:02)
[2024-04-28] MEDS: Isosorbide Mononitrate 30 MG Tablet PO (11:02)
[2024-04-28 11:03] VITALS: BP 117/70; PULSE 62
[2024-04-28] MEDS: Metoprolol Tartrate 25 MG Tablet 12.5 MG PO ×2 (11:03→22:38)
[2024-04-28] MEDS: Furosemide 80 MG Tablet PO (11:03)
[2024-04-28] MEDS: Magnesium Chloride 64 MG Delay Rel.Tablet 128 MG PO ×2 (11:04→22:39)
[2024-04-28] MEDS: Senna/Docusate Sodium 1 Tablet 2 TABLET PO ×2 (11:05→22:39)
[2024-04-28] MEDS: Pantoprazole Sodium 40 MG Tablet PO ×2 (11:05→22:39)
[2024-04-28] MEDS: Ranolazine 500 MG Tablet PO ×2 (11:05→22:39)
[2024-04-28] MEDS: Ascorbic Acid 500 MG Tablet PO ×2 (11:06→22:39)
[2024-04-28 12:21] VITALS: BP 117/70; PULSE 61; RESP 16; TEMP 36.6; O2SAT 98
[2024-04-28] MEDS: Finasteride 5 MG Tablet PO (13:10)
[2024-04-28] MEDS: Ferrous Sulfate 325 MG Tablet PO (22:37)
[2024-04-28] MEDS: traZODone 50 MG Tablet 25 MG PO (22:37)
[2024-04-28 22:38] VITALS: BP 134/72; PULSE 50
[2024-04-28] MEDS: Cholecalciferol (VIT D3) 25 MCG TABLET (1,000 UNITS) PO (22:39)
[2024-04-28] MEDS: Glycerin/Hypromellose/PEG400 15 ml Bottle 1 DRP EACH EYE (22:40)
[2024-04-29] MEDS: Levothyroxine 50 MCG Tablet PO (05:32)
[2024-04-29 06:19] LABS: Bedside Glucose 88 mg/dL (74-106)
[2024-04-29] MEDS: Tamsulosin HCl 0.4 MG Capsule PO ×2 (08:41→17:25)
[2024-04-29] MEDS: Potassium Chloride Oral Tablet 20 MEQ PO (08:43)
[2024-04-29] MEDS: Furosemide 80 MG Tablet PO (10:10)
[2024-04-29] MEDS: Isosorbide Mononitrate 30 MG Tablet PO (10:10)
[2024-04-29] MEDS: APIXABAN 2.5 MG TABLET (WCH) PO ×2 (10:11→22:12)
[2024-04-29] MEDS: Magnesium Chloride 64 MG Delay Rel.Tablet 128 MG PO ×2 (10:11→22:13)
[2024-04-29] MEDS: dilTIAZem CD 120 MG Capsule PO (10:11)
[2024-04-29] MEDS: Empagliflozin 10 MG Tablet PO (10:11)
[2024-04-29 10:12] VITALS: BP 133/85; PULSE 77
[2024-04-29] MEDS: Ranolazine 500 MG Tablet PO ×2 (10:12→22:13)
[2024-04-29] MEDS: Pantoprazole Sodium 40 MG Tablet PO ×2 (10:12→22:13)
[2024-04-29] MEDS: Amiodarone 200 MG Tablet 100 MG PO ×2 (10:12→22:12)
[2024-04-29] MEDS: Metoprolol Tartrate 25 MG Tablet 12.5 MG PO ×2 (10:12→22:12)
[2024-04-29] MEDS: Vitamin B Comp W-C Capsule 1 CAP PO ×2 (10:13→22:12)
[2024-04-29] MEDS: Ascorbic Acid 500 MG Tablet PO ×2 (10:13→22:13)
[2024-04-29] MEDS: Senna/Docusate Sodium 1 Tablet 2 TABLET PO ×2 (10:13→22:13)
[2024-04-29 11:36] VITALS: BP 133/85; PULSE 77; RESP 16; TEMP 36.4; O2SAT 96
[2024-04-29] MEDS: Finasteride 5 MG Tablet PO (12:12)
[2024-04-29 20:30] VITALS: PULSE 78; O2SAT 93
[2024-04-29] MEDS: Glycerin/Hypromellose/PEG400 15 ml Bottle 1 DRP EACH EYE (22:11)
[2024-04-29 22:12] VITALS: BP 109/67; PULSE 78
[2024-04-29] MEDS: Ferrous Sulfate 325 MG Tablet PO (22:12)
[2024-04-29] MEDS: traZODone 50 MG Tablet 25 MG PO (22:12)
[2024-04-29] MEDS: Cholecalciferol (VIT D3) 25 MCG TABLET (1,000 UNITS) PO (22:13)
[2024-04-30] MEDS: Acetaminophen 500 MG Tablet 1000 MG PO (01:17)
[2024-04-30] MEDS: Levothyroxine 50 MCG Tablet PO (06:46)
[2024-04-30 07:15] LABS: Bedside Glucose 81 mg/dL (74-106)
[2024-04-30] MEDS: proCHLORPERazine 5 MG Tablet 10 MG PO ×2 (09:12→21:10)
[2024-04-30 10:39] VITALS: PULSE 72
[2024-04-30] MEDS: APIXABAN 2.5 MG TABLET (WCH) PO ×2 (10:39→21:02)
[2024-04-30] MEDS: Empagliflozin 10 MG Tablet PO (10:39)
[2024-04-30] MEDS: Tamsulosin HCl 0.4 MG Capsule PO ×2 (10:39→16:33)
[2024-04-30] MEDS: Ranolazine 500 MG Tablet PO ×2 (10:39→21:02)
[2024-04-30] MEDS: Isosorbide Mononitrate 30 MG Tablet PO (10:39)
[2024-04-30] MEDS: Metoprolol Tartrate 25 MG Tablet 12.5 MG PO ×2 (10:39→21:04)
[2024-04-30] MEDS: dilTIAZem CD 120 MG Capsule PO (10:40)
[2024-04-30] MEDS: Furosemide 80 MG Tablet PO (10:40)
[2024-04-30] MEDS: Amiodarone 200 MG Tablet 100 MG PO ×2 (10:40→21:03)
--- NOTE | 2024-04-30 11:23 | NURSING ---
This RN went into pt room this am while he was eating breakfast and he wanted to wait on taking his meds. After breakfast he started to feel nauseated and dry heaving. Pt was given PRN Compazine. Went back to give him am meds and he said he would only take the important ones like heart and BP meds. Pt also stated that he has a lot of gas and had 2 BM. He was taken to bathroom and the back to bed to rest for the day.
[2024-04-30 14:03] VITALS: BP 117/80; PULSE 77; RESP 16; TEMP 36.7; O2SAT 98
[2024-04-30] MEDS: Pantoprazole Sodium 40 MG Tablet PO (21:01)
[2024-04-30] MEDS: Glycerin/Hypromellose/PEG400 15 ml Bottle 1 DRP EACH EYE (21:01)
[2024-04-30] MEDS: Magnesium Chloride 64 MG Delay Rel.Tablet 128 MG PO (21:02)
[2024-04-30] MEDS: traZODone 50 MG Tablet 25 MG PO (21:03)
[2024-04-30] MEDS: Vitamin B Comp W-C Capsule 1 CAP PO (21:03)
[2024-04-30 21:04] VITALS: PULSE 70
[2024-04-30] MEDS: Ferrous Sulfate 325 MG Tablet PO (21:04)
[2024-04-30] MEDS: Cholecalciferol (VIT D3) 25 MCG TABLET (1,000 UNITS) PO (21:05)
[2024-04-30] MEDS: Ascorbic Acid 500 MG Tablet PO (21:05)
[2024-05-01] MEDS: Acetaminophen 500 MG Tablet 1000 MG PO (02:29)
[2024-05-01 06:04] LABS: Absolute Neutrophil Count 5.9 X10^3/uL (2.0-7.7); Basophil# 0.05 X10^3/uL; Basophil% 0.6 % (0-1); Eosinophil# 0.13 X10^3/uL; Eosinophils% 1.7 % (0-5); Hemoglobin 10.7 g/dL (13.0-16.5); Lymphocyte % 12.8 % (19-41); Mean Corp Hgb Conc 33.4 g/dL (32-36); Mean Corpuscular Hgb 38.2 pg (27.0-32.0); Mean Corpuscular Volume 114.3 fL (80-94); Mean Platelet Vol. 9.8 fl (6.2-12.0); Monocyte# 0.66 X10^3/uL; Monocyte% 8.5 % (0-10); NRBC Flagged by Analyzer 0 % (0-5); Neutrophil # 5.92 X10^3/uL (2.7-7.7); Neutrophil % 75.9 % (47-70); POSITIVE MORPHOLOGY YES; Platelet Count 235 K/mm3 (150-450); RBC Distribution Width CV 15.8 % (11.6-14.6); RBC Distribution Width SD 67.3 fl (35.1-43.9); White Blood Count 7.8 K/mm3 (4.4-11.0)
[2024-05-01 06:26] LABS: Differential Indicated SCAN CRITERIA MET
[2024-05-01] MEDS: Levothyroxine 50 MCG Tablet PO (06:31)
[2024-05-01 06:35] LABS: Anion Gap 9 (5-15); BUN 40 mg/dL (7-18); BUN/Creat Ratio 13.4 RATIO (10-20); Calcium,Total 8.6 mg/dL (8.5-10.1); Chloride 104 mmol/L (98-107); Creatinine, Serum 2.99 mg/dL (0.70-1.30); EST Glomerular Filtration Rate 21 mL/min (>60); Est Glom Filt Rate - Afr Amer 26 mL/min (>60); Estimated Creatinine Clearance 16.13 ml/min; Glucose 82 mg/dL (74-106); Potassium 3.2 mmol/L (3.5-5.1); Sodium Level 138 mmol/L (136-145)
[2024-05-01 06:48] LABS: Bedside Glucose 88 mg/dL (74-106)
[2024-05-01 06:52] LABS: Differential Comment SCANNED
[2024-05-01] MEDS: proCHLORPERazine 5 MG Tablet 10 MG PO (07:39)
[2024-05-01 09:51] VITALS: BP 94/49; PULSE 79; RESP 15; TEMP 36.6; O2SAT 96
[2024-05-01 09:53] VITALS: BP 105/58
[2024-05-01] MEDS: Potassium Chloride Oral Tablet 20 MEQ 40 MEQ PO (10:01)
--- NOTE | 2024-05-01 10:18 | EKG12_ITS ---
Test Reason : BRADYCARDIA Blood Pressure : / mmHG Vent. Rate : 037 BPM Atrial Rate : 037 BPM P-R Int : 104 ms QRS Dur : 158 ms QT Int : 474 ms P-R-T Axes : 000 -05 -10 degrees QTc Int : 372 ms Critical Test Result: Low HR Atrial flutter with 4:1 conduction Right bundle branch block Abnormal ECG Confirmed by MARCE KASPER, ADAM ([id number]), editor trade journal CIPRIANO GATES ([id number]) on 05/03/2024 1:42:20 PM Referred By: Confirmed By:ADAM ZHENG MD
--- NOTE | 2024-05-01 10:18 | NURSING ---
pt resting in bed, HR low 37-40's. pt nauseated early AM, compazine given before brkfst, c/o stomach being queasy. potassium given per new order d/t level 3.[address] Samuel udpated on vitals and pt reporting not wanting to go home with HR that low since he lives alone. new order to get STAT EKG. pt resting in bed, HOB elevated. francisca crackers given per pt request. pt has been nauseated intermittently last couple weeks and usually resides after having medication to induce a bowel movement. pt also had been refusing medications when not feeling well enough to take them. per documentation pt had refused potassium yesterday morning.
--- NOTE | 2024-05-01 10:49 | NURSING ---
Dr Samuel notified of EKG results, new order to send pt to ER if cardiology cant see him today. Checked with their office and they cannot see today. pt off unit to ER via WC.
[2024-05-01 10:55] VITALS: PULSE 37
== END 2024-05-01 13:01 | disposition short-term general hospital (02) | DRG 291 ==
PROVIDERS: Nurse Practitioner Adult Health; Nurse Practitioner Family; Admitting Provider Family Medicine Geriatric Medicine; PCP Family Medicine; Visit Provider Family Medicine Geriatric Medicine
DX: I13.0 Hypertensive heart and chronic kidney disease with heart failure and stage 1 through stage 4 chronic kidney disease, or unspecified chronic kidney disease (principal); J96.01 Acute respiratory failure with hypoxia; I48.19 Other persistent atrial fibrillation; N18.4 Chronic kidney disease, stage 4 (severe); I50.42 Chronic combined systolic (congestive) and diastolic (congestive) heart failure; K92.1 Melena; I27.9 Pulmonary heart disease, unspecified; K22.2 Esophageal obstruction; J44.9 Chronic obstructive pulmonary disease, unspecified; E03.9 Hypothyroidism, unspecified; D50.9 Iron deficiency anemia, unspecified; I34.0 Nonrheumatic mitral (valve) insufficiency; K57.30 Diverticulosis of large intestine without perforation or abscess without bleeding; E55.9 Vitamin D deficiency, unspecified; E78.00 Pure hypercholesterolemia, unspecified; I25.10 Atherosclerotic heart disease of native coronary artery without angina pectoris; K21.9 Gastro-esophageal reflux disease without esophagitis; E87.6 Hypokalemia; R11.2 Nausea with vomiting, unspecified; R00.1 Bradycardia, unspecified; G47.00 Insomnia, unspecified; N40.0 Benign prostatic hyperplasia without lower urinary tract symptoms; Z79.890 Hormone replacement therapy; Z95.5 Presence of coronary angioplasty implant and graft; Z79.899 Other long term (current) drug therapy; R13.10 Dysphagia, unspecified
CPT/HCPCS: 36415; 71046; 74018; 80048; 82962; 83880; 85014; 85018; 85025; 87811; 93005; 97110; 97162; 97166; 97530; 97535; 97802

== ENCOUNTER 2024-05-01 10:52 | Observation (INO) | payer MEDICARE, OTHER, SELFPAY ==
[2024-05-01] VITALS (7 sets, daily range): BP systolic 124–148; BP diastolic 60–86; PULSE 34–77; RESP 16–17; TEMP 36.4–36.8; O2SAT 95–99; BMI 20.2; BMI 19.5
--- NOTE | 2024-05-01 10:36 | EKG12_ITS ---
Test Reason : BRADYCARDIA Blood Pressure : / mmHG Vent. Rate : 037 BPM Atrial Rate : 037 BPM P-R Int : 094 ms QRS Dur : 162 ms QT Int : 500 ms P-R-T Axes : 075 005 -30 degrees QTc Int : 392 ms Atrial flutter with 4:1 block Right bundle branch block Abnormal ECG No previous ECGs available Confirmed by MARCE KASPER, ADAM ([id number]), non linear editor CIPRIANO GATES ([id number]) on 05/07/2024 8:26:15 AM Referred By: Leilani Stone Confirmed By:ADAM ZHENG MD
[2024-05-01] MEDS: 0.9% Normal Saline (1000mL) 1,000 ML 15 ML IV (11:19)
[2024-05-01 11:26] LABS: Absolute Neutrophil Count 6.1 X10^3/uL (2.0-7.7); Basophil# 0.06 X10^3/uL; Basophil% 0.8 % (0-1); Eosinophil# 0.06 X10^3/uL; Eosinophils% 0.8 % (0-5); Hematocrit 33.2 % (40-54); Hemoglobin 11.1 g/dL (13.0-16.5); Lymphocyte % 9.1 % (19-41); Mean Corp Hgb Conc 33.4 g/dL (32-36); Mean Corpuscular Hgb 38.4 pg (27.0-32.0); Mean Corpuscular Volume 114.9 fL (80-94); Mean Platelet Vol. 9.7 fl (6.2-12.0); Monocyte# 0.68 X10^3/uL; Monocyte% 8.9 % (0-10); NRBC Flagged by Analyzer 0 % (0-5); Neutrophil # 6.14 X10^3/uL (2.7-7.7); Neutrophil % 79.9 % (47-70); POSITIVE MORPHOLOGY YES; Platelet Count 244 K/mm3 (150-450); RBC Distribution Width CV 15.9 % (11.6-14.6); RBC Distribution Width SD 67.2 fl (35.1-43.9); Red Blood Count 2.89 M/mm3 (4.6-6.2); White Blood Count 7.7 K/mm3 (4.4-11.0)
[2024-05-01 11:28] LABS: Differential Indicated SCAN CRITERIA MET
--- NOTE | 2024-05-01 11:35 | RAD_ITS ---
STUDY: X-RAY CHEST REASON FOR EXAM: Male, 83 years old. Weakness. TECHNIQUE: Single frontal view of the chest. COMPARISON: April 18, 2024 FINDINGS: Stable low volume inspiration with bibasilar atelectasis. There is no demonstrated pleural abnormality. Cardiomegaly unchanged. Normal mediastinum and nasrin. Normal visualized pulmonary arteries. Marked aortic tortuosity with calcification unchanged. No abnormality of the visualized soft tissue structures of the upper abdomen. RAD/Chest 1 View (Portable) IMPRESSION: Stable chest with no acute or active cardiopulmonary disease. Electronically Signed: Ang Bauer MD at 12:18 EDT ,
[2024-05-01 11:38] LABS: Anion Gap 7 (5-15); BUN 43 mg/dL (7-18); BUN/Creat Ratio 13.9 RATIO (10-20); Calcium,Total 8.6 mg/dL (8.5-10.1); Chloride 104 mmol/L (98-107); Creatinine, Serum 3.09 mg/dL (0.70-1.30); EST Glomerular Filtration Rate 21 mL/min (>60); Est Glom Filt Rate - Afr Amer 25 mL/min (>60); Estimated Creatinine Clearance 16.27 ml/min; Glucose 143 mg/dL (74-106); Potassium 3.3 mmol/L (3.5-5.1); Sodium Level 138 mmol/L (136-145); Troponin-I HS 32 pg/mL (3.0-78.0)
[2024-05-01 11:54] LABS: Differential Comment SCANNED
--- NOTE | 2024-05-01 11:54 | EX.ED.DYSGE1 ---
HPI History of Present Illness Chief Complaint: Dizziness Informant: patient Narrative Narrative: Patient is an 83-year-old male presenting from TCU for concern of bradycardia. Patient started feel more dizzy today and was noted to be bradycardic. He was sent to the ER for further evaluation. He does have a history of atrial fibrillation and is on amiodarone as well as diltiazem. He has a history of CKD and is also chronically on Eliquis. Patient states for some time he had intermittent lightheadedness and dizziness. It is worse today. He notes he has some chronic shortness of breath which is unchanged. He said a dry cough in the past 3 weeks. He has a history of valvular disease and is currently in the TCU for that for the patient. [facility] Medical History History of atrial fibrillation COPD (chronic obstructive pulmonary disease) with emphysema CHF (congestive heart failure) Hypoxia Chronic kidney disease Chronic anticoagulation Acute dyspnea Acute kidney injury Hypotension Abnormal abdominal ultrasound Persistent atrial fibrillation Hearing loss, left Hearing loss, right Anxiety Chronic pain Rheumatoid arthritis COPD (chronic obstructive pulmonary disease) Irregular heart beat Hypertension Hypothyroidism Hiatal hernia Acute constipation Acute exacerbation of chronic low back pain Wears glasses Thyroid disease Ambulates with cane Arthritis History of renal disease Anemia High cholesterol Easy bruising Excessive bleeding History of leukemia Back pain Difficulty chewing History of diverticulitis Gastric reflux Sleep apnea History of pain when walking History of edema History of echocardiogram History of stress test Cardiology follow-up encounter History of heart attack Nausea and vomiting Chronic anemia Diarrhea Colitis Sleep apnea Acute kidney injury superimposed on chronic kidney disease On amiodarone therapy Elevated LFTs Thoracic aortic aneurysm (TAA) Chronic heart failure with preserved ejection fraction (HFpEF) Nonrheumatic mitral (valve) insufficiency Atypical atrial flutter (12/2020) Elevated liver enzymes Debility Dysphagia Osteoarthritis History of colon polyps Cancer Kidney stones Kidney disease Non-smoker CPAP (continuous positive airway pressure) dependence Atrial fibrillation Myocardial infarct Chronic renal insufficiency Acute gastrointestinal bleeding Chronic kidney disease Benign prostatic hyperplasia Stage 3b chronic kidney disease GI bleed (2012) Non-rheumatic tricuspid valve insufficiency Secondary pulmonary arterial hypertension Essential (primary) hypertension BPH (benign prostatic hyperplasia) History of hyperthyroidism Paroxysmal atrial fibrillation 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 heart disease of [place] coronary artery without angina pectoris HLD (hyperlipidemia) Home Medications ?Medication ?Instructions ?Recorded ?Last Taken ?Type tamsulosin 0.4 mg capsule 0.4 mg PO BID PROSTATE 11/18/21 03/19/24 History vitamin B complex 1 cap PO BID SUPPLEMENT 05/01/22 03/19/24 History ascorbic acid (vitamin C) 500 mg 500 mg PO BID SUPPLEMENT 07/20/22 03/19/24 History tablet finasteride 5 mg tablet 5 mg PO 1200 PROSTATE 08/05/22 03/19/24 History cholecalciferol (vitamin D3) 25 1,000 unit PO QHS SUPPLEMENT 02/19/23 03/19/24 History mcg (1,000 unit) capsule (Vitamin D3) empagliflozin 10 mg tablet 10 mg PO DAILY DIABTETES #0 tabs 07/22/23 03/19/24 Rx (Jardiance) nitroglycerin 0.4 mg sublingual 0.4 mg sublingual Q5M PRN 07/22/23 Unknown Rx tablet Cardiac/Chest Pain #0 tabs isosorbide mononitrate 30 mg 30 mg PO DAILY CHEST PAIN 02/28/24 03/19/24 History tablet,extended release 24 hr magnesium chloride 64 mg 128 mg PO BID SUPPLEMENT 02/28/24 03/19/24 History (magnesium chloride) tablet,delayed release (Mag 64) metoprolol tartrate 25 mg tablet 12.5 mg PO BID BLOOD PRESSURE 02/28/24 03/19/24 History pantoprazole 40 mg tablet,delayed 40 mg PO BID GERD 02/28/24 03/19/24 History release trazodone 50 mg tablet 25 mg PO QHS INSOMNIA 02/28/24 03/19/24 History amiodarone 100 mg tablet 100 mg PO BID HEART #180 tabs 02/29/24 03/19/24 Rx ferrous sulfate 325 mg (65 mg 325 mg PO QHS ANEMIA 03/20/24 03/19/24 History iron) tablet (Feosol) levothyroxine 50 mcg tablet 50 mcg PO DAILY THYROID 03/20/24 03/19/24 History apixaban 2.5 mg tablet (Eliquis) 2.5 mg PO BID Anticoagulant #60 03/24/24 Unknown Rx tabs furosemide 80 mg tablet 80 mg PO DAILY Diuretic #40 tabs 03/24/24 Unknown Rx diltiazem HCl 120 mg 120 mg PO DAILY 30 days #30 caps 04/25/24 Unknown Rx capsule,extended release 24 hr potassium chloride 20 mEq 20 meq PO DAILYCM #0 tabs 04/25/24 Unknown Rx tablet,extended release(part/cryst) acetaminophen 500 mg tablet 1,000 mg PO Q6H PRN Pain Score 1-10 05/01/24 Unknown History Allergy/AdvReac Type Severity Reaction Status Date / Time diclofenac Allergy rash Verified 04/17/24 13:29 prednisone Allergy Rash Verified 04/17/24 13:29 Family History Father Cancer Prostate cancer Mother Hypertension Sister Hypertension Surgical History History of colonoscopy (03/26/24) History of back surgery History of cardiac catheterization History of esophagogastroduodenoscopy (EGD) History of cardioversion (06/18/19) History of radiofrequency ablation procedure for cardiac arrhythmia (11/11/11) History of electrophysiologic study (08/08/00) History of left heart catheterization (07/17/12) History of hemorrhoidectomy History of Zenaida fundoplication History of coronary artery stent placement (08/04/00) History of hernia repair History of back surgery Social History household members: none Smoking Status: Never smoker alcohol intake: never substance use type: does not use caffeine: No ROS ROS ED Constitutional Constitutional ED: Denies chills or fever(s) Cardiovascular Cardiovascular: Denies chest pain Respiratory/Chest Respiratory/Chest: Reports cough and dyspnea Musculoskeletal Musculoskeletal: Denies arthralgias or myalgias Neurologic Neurologic: Reports weakness and other Details: Lightheaded ; Denies headache(s) EXAM Physical Exam Const Vital Signs: 05/01/24 10:55 05/01/24 11:55 05/01/24 11:55 Temperature 98 F Temperature Source Temporal Pulse Rate 38 L 44 L 34 L Respiratory Rate 17 16 17 Blood Pressure 124/60 H 143/68 H 133/64 H Blood Pressure Mean 81 93 87 Pulse Ox 97 95 98 Oxygen Delivery Method Room Air Room Air Room Air 05/01/24 12:00 Temperature Temperature Source Pulse Rate 35 L Respiratory Rate 17 Blood Pressure 137/64 H Blood Pressure Mean 88 Pulse Ox 98 Oxygen Delivery Method Room Air Constitutional Narrative: Chronically ill-appearing, no acute distress General Appearance ED: NAD HEENT Reports moist mucous membranes Eyes PERRL Neck supple and no JVD Chest Wall inspection of chest normal Resp normal respiratory effort and clear to auscultation bilaterally Cardio regular rhythm Rate: bradycardia GI normal to inspection, nondistended, normoactive bowel sounds and non-tender Extremity normal to inspection General Extremety ED: Negative for edema General Extremity: Negative for edema Neuro oriented x3 Sensorium / Orientation: alert Motor Exam: general weakness Psych mental status grossly normal Skin no rashes or lesions noted and no wounds MDM MDM MDM Narrative Medical decision making narrative: Patient presents with bradycardia. Patient had worsening lightheadedness today. He is coming from the TCU where he was noted to be bradycardic and sent to the ER. EKG shows bradycardia with an underlying atrial fibrillation. Differential for this includes atrial fibrillation with 41 conduction and slow ventricular response versus block. I discussed the case with Dr. Molina, cardiology on-call because of the bradycardia. He suspects it is likely medication related as patient is on a carvedilol, metoprolol and amiodarone and has known CKD. Patient hamilton hemodynamic stable in the ER. At workup is otherwise unremarkable. Will be admitted for further evaluation of his bradycardia and inpatient cardiac GI consult. Case is discussed with my physician, Dr. Stone History & Record Review Additional record(s) reviewed:: Prior inpatient record (TCU progress note on 04/23/2024-stable at that time. Recent hospitalization for acute respiratory failure secondary to hypoxia secondary to heart failure with reduced ejection fraction, complicated by FE, hypotension and debility) Lab Data Attestation: I reviewed the patient's lab results. Labs: Laboratory Results - last 24 hr 05/01/24 11:15 WBC 7.7 RBC 2.89 L Hgb 11.1 L Hct 33.2 L MCV 114.9 H MCH 38.4 H MCHC 33.4 RDW Std Deviation 67.2 H RDW Coeff of Pablo 15.9 H Plt Count 244 MPV 9.7 Immature Gran % (Auto) 0.500 Neut % (Auto) 79.9 H Lymph % (Auto) 9.1 L [place] % (Auto) 8.9 Eos % (Auto) 0.8 Baso % (Auto) 0.8 Absolute Neuts (auto) 6.1 Absolute Lymphs (auto) 0.70 L Nucleated RBC % 0 Differential Comment SCANNED Anisocytosis 1+ Sodium 138 Potassium 3.3 L Chloride 104 Carbon Dioxide 27.0 Anion Gap 7 BUN 43 H Creatinine 3.09 H Estim Creat Clear Calc 16.27 Est GFR (MDRD) Af Amer 25 L Est GFR (MDRD) Non-Af 21 L BUN/Creatinine Ratio 13.9 Glucose 143 H Calcium 8.6 Troponin I High Sens 32 TSH 4.150 H Radiography Chest X-Ray - ED: 1 View, Read by ED Physician, Read by Radiologist and No Acute Disease Diagnostic Testing: Clinical Impression(s) from Imaging Studies Chest X-Ray 05/01/24 11:35 IMPRESSION: Stable chest with no acute or active cardiopulmonary disease. Electronically Signed: Ang Bauer MD at 12:18 EDT , Rhythm Strip Rhythm Strip: bradycardua Rate: 37 Ectopy: None EKG Initial EKG: Attestation: I personally reviewed and interpreted this EKG as follows: Comments: Marked sinus bradycardia at a rate of 37 bpm with underlying atrial flutter with 3:[address] depressions in the septal leads however this is unchanged compared to prior EKG Management Discussion w/another healthcare provider: Hospitalist and Back St[employer] Discharge Plan Dx/Rx/DC Orders Clinical Impression: Bradycardia, Atrial fibrillation, Light-headed Disposition Disposition: Acute Care [facility] Discharge Date/Time: 05/01/24 13:03
[2024-05-01 11:55] LABS: Anisocytosis 1+
--- NOTE | 2024-05-01 12:15 | PCM.HP.STD ---
HPI - General General Date of Admission: 05/01/24 Date of Service: 05/01/24 Chief Complaint: Lightheadedness HPI Narrative RICHIE HANSEN, is a 83 M who presented to the emergency department [facility] on 05/01/2024 from the transitional care unit for concerns of bradycardia. The patient indicated he felt more lightheaded today and they checked his vitals and he was noted to be bradycardic. He does have a history of atrial fibrillation and takes amiodarone, diltiazem, and metoprolol at baseline and has been on these for a significant amount of time however his renal function has slowly been declining. He also takes Eliquis 2.5 mg daily for his atrial fibrillation. 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 He had a recent hospitalization here for some rectal bleeding and acute on chronic heart failure with reduced ejection fraction and has currently been receiving rehab over the transitional care unit. This was based on an echo from 2022 at which time his EF was 35% however most recently his echo have is improved to showing an EF of 53%. He did have a recent echocardiogram done on 03/21/2024 which showed an EF of 53%, severely enlarged left atrium, mild to moderate mitral valve insufficiency, moderate pulmonary hypertension with a pulmonary artery systolic pressure 64 mmHg. Evidently he was to be discharged from the transitional care unit today to home. Vital signs on presentation showed temperature of 98, heart rate 35, blood pressure 124/60, respiratory rate 17 and pulse ox was 97% on room air. CBC shows a normal white count with a stable hemoglobin at 11.1. Chemistry panel shows mild hypokalemia with potassium of 3.3 but electrolytes are otherwise unremarkable. BUN and serum creatinine are stable when compared to previous at 43 and 3.09 respectively. Blood sugar is 143. Troponin was 32. TSH was 4.15. EKG shows bradycardia. Chest x-ray shows no acute findings. [facility] Medical History History of atrial fibrillation COPD (chronic obstructive pulmonary disease) with emphysema CHF (congestive heart failure) Hypoxia Chronic kidney disease Chronic anticoagulation Acute dyspnea Acute kidney injury Hypotension Abnormal abdominal ultrasound Persistent atrial fibrillation Hearing loss, left Hearing loss, right Anxiety Chronic pain Rheumatoid arthritis COPD (chronic obstructive pulmonary disease) Irregular heart beat Hypertension Hypothyroidism Hiatal hernia Acute constipation Acute exacerbation of chronic low back pain Wears glasses Thyroid disease Ambulates with cane Arthritis History of renal disease Anemia High cholesterol Easy bruising Excessive bleeding History of leukemia Back pain Difficulty chewing History of diverticulitis Gastric reflux Sleep apnea History of pain when walking History of edema History of echocardiogram History of stress test Cardiology follow-up encounter History of heart attack Nausea and vomiting Chronic anemia Diarrhea Colitis Sleep apnea Acute kidney injury superimposed on chronic kidney disease On amiodarone therapy Elevated LFTs Thoracic aortic aneurysm (TAA) Chronic heart failure with preserved ejection fraction (HFpEF) Nonrheumatic mitral (valve) insufficiency Atypical atrial flutter (12/2020) Elevated liver enzymes Debility Dysphagia Osteoarthritis History of colon polyps Cancer Kidney stones Kidney disease Non-smoker CPAP (continuous positive airway pressure) dependence Atrial fibrillation Myocardial infarct Chronic renal insufficiency Acute gastrointestinal bleeding Chronic kidney disease Benign prostatic hyperplasia Stage 3b chronic kidney disease GI bleed (2012) Non-rheumatic tricuspid valve insufficiency Secondary pulmonary arterial hypertension Essential (primary) hypertension BPH (benign prostatic hyperplasia) History of hyperthyroidism Paroxysmal atrial fibrillation 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 HLD (hyperlipidemia) Home Medications ?Medication ?Instructions ?Recorded ?Last Taken ?Type tamsulosin 0.4 mg capsule 0.4 mg PO BID PROSTATE 11/18/21 03/19/24 History vitamin B complex 1 cap PO BID SUPPLEMENT 05/01/22 03/19/24 History ascorbic acid (vitamin C) 500 mg 500 mg PO BID SUPPLEMENT 07/20/22 03/19/24 History tablet finasteride 5 mg tablet 5 mg PO 1200 PROSTATE 08/05/22 03/19/24 History cholecalciferol (vitamin D3) 25 1,000 unit PO QHS SUPPLEMENT 02/19/23 03/19/24 History mcg (1,000 unit) capsule (Vitamin D3) empagliflozin 10 mg tablet 10 mg PO DAILY DIABTETES #0 tabs 07/22/23 03/19/24 Rx (Jardiance) nitroglycerin 0.4 mg sublingual 0.4 mg sublingual Q5M PRN 07/22/23 Unknown Rx tablet Cardiac/Chest Pain #0 tabs isosorbide mononitrate 30 mg 30 mg PO DAILY CHEST PAIN 02/28/24 03/19/24 History tablet,extended release 24 hr magnesium chloride 64 mg 128 mg PO BID SUPPLEMENT 02/28/24 03/19/24 History (magnesium chloride) tablet,delayed release (Mag 64) metoprolol tartrate 25 mg tablet 12.5 mg PO BID BLOOD PRESSURE 02/28/24 03/19/24 History pantoprazole 40 mg tablet,delayed 40 mg PO BID GERD 02/28/24 03/19/24 History release trazodone 50 mg tablet 25 mg PO QHS INSOMNIA 02/28/24 03/19/24 History amiodarone 100 mg tablet 100 mg PO BID HEART #180 tabs 02/29/24 03/19/24 Rx ferrous sulfate 325 mg (65 mg 325 mg PO QHS ANEMIA 03/20/24 03/19/24 History iron) tablet (Feosol) levothyroxine 50 mcg tablet 50 mcg PO DAILY THYROID 03/20/24 03/19/24 History apixaban 2.5 mg tablet (Eliquis) 2.5 mg PO BID Anticoagulant #60 03/24/24 Unknown Rx tabs furosemide 80 mg tablet 80 mg PO DAILY Diuretic #40 tabs 03/24/24 Unknown Rx diltiazem HCl 120 mg 120 mg PO DAILY 30 days #30 caps 04/25/24 Unknown Rx capsule,extended release 24 hr potassium chloride 20 mEq 20 meq PO DAILYCM #0 tabs 04/25/24 Unknown Rx tablet,extended release(part/cryst) acetaminophen 500 mg tablet 1,000 mg PO Q6H PRN Pain Score 1-10 05/01/24 Unknown History Allergy/AdvReac Type Severity Reaction Status Date / Time diclofenac Allergy rash Verified 04/17/24 13:29 prednisone Allergy Rash Verified 04/17/24 13:29 Family History Father Cancer Prostate cancer Mother Hypertension Sister Hypertension Surgical History History of colonoscopy (03/26/24) History of back surgery History of cardiac catheterization History of esophagogastroduodenoscopy (EGD) History of cardioversion (06/18/19) History of radiofrequency ablation procedure for cardiac arrhythmia (11/11/11) History of electrophysiologic study (08/08/00) History of left heart catheterization (07/17/12) History of hemorrhoidectomy History of Zenaida fundoplication History of coronary artery stent placement (08/04/00) History of hernia repair History of back surgery Social History household members: none Smoking Status: Never smoker alcohol intake: never substance use type: does not use caffeine: No ROS Constitutional Constitutional: Reports weakness; Denies anorexia, change in weight, chills, fatigue, fever(s), malaise, night sweats or other Eyes Eyes: Denies blurry vision, change in eye color, change in vision, discharge from eye(s), double vision, erythema, eye pain, loss of vision or other ENT HEENT: Reports abnormal hearing and hearing loss; Denies dysphagia, ear pain, epistaxis, headache(s), nasal congestion, nasal discharge, post nasal drip, sinus pressure, sore throat or other Cardiovascular Cardiovascular: Reports lightheadedness; Denies chest pain, claudication, dyspnea on exertion, edema, orthopnea, palpitations, paroxysmal nocturnal dyspnea, rapid heart rate, syncope or other Respiratory/Chest Respiratory/Chest: Denies cough, dyspnea, excessive phlegm production, hemoptysis, productive cough, shortness of breath at rest, shortness of breath with exertion, wheezing or other Gastrointestinal Gastrointestinal: Denies abdominal pain, coffee ground emesis, constipation, diarrhea, dyspepsia, hematemesis, hematochezia, loose stools, melena, nausea, vomiting or other Genitourinary Genitourinary: Denies burning urination, difficulty urinating, dysuria, hematuria, nocturia, urinary frequency, urinary hesitancy, urinary incontinence, urinary urgency or other Musculoskeletal Musculoskeletal: Reports back pain, joint pain and joint stiffness; Denies arthralgias, joint swelling, myalgias, neck pain or other Neurologic Neurologic: Denies abnormal gait, abnormal speech, confusion, disequilibrium, dizziness, focal weakness, headache(s), numbness, paresthesias, seizure-like activity, seizures, syncope, tingling, tremor(s) or other Psychiatric Psychiatric: Denies anxiety, depression, homicidal ideation, suicidal ideation or other Endocrine Endocrinology: Denies change in body appearance, cold intolerance, excessive sweating, heat intolerance, polydipsia, polyuria or other Hematologic/Lymphatic Hematologic/Lymphatic: Denies anemia, easy bleeding, easy bruising, lymphadenopathy or other Allergic/Immunologic Allergic/Immunologic: Denies rhinitis, hives, eczemia, asthma or other Vital Signs Vital Signs Vital Signs: 05/01/24 10:55 05/01/24 11:55 05/01/24 11:55 Temperature 98 F Temperature Source Temporal Pulse Rate 38 L 44 L 34 L Respiratory Rate 17 16 17 Blood Pressure 124/60 H 143/68 H 133/64 H Blood Pressure Mean 81 93 87 Pulse Ox 97 95 98 Oxygen Delivery Method Room Air Room Air Room Air 05/01/24 12:00 Temperature Temperature Source Pulse Rate 35 L Respiratory Rate 17 Blood Pressure 137/64 H Blood Pressure Mean 88 Pulse Ox 98 Oxygen Delivery Method Room Air Weight Weight: 62.4 kg Body Mass Index (BMI) 20.2 Physical Exam Const alert, oriented x3 and no apparent distress; Negative for average body habitus, healthy appearing or well nourished Constitutional Narrative: Thin, elderly, frail, white male, lying in bed, currently appears comfortable nontoxic, interacts appropriately, nursing at bedside, appears chronically ill General Appearance: cooperative HEENT normocephalic, head/scalp atraumatic and moist oral mucous membranes; Negative for hearing grossly normal bilaterally HEENT Narrative: Mild hearing loss, Mallampati 2, no thrush, dentures in place Eyes PERRL, EOMs intact bilaterally and conjunctivae normal Eyes Narrative: No scleral icterus Neck no lymphadenopathy and supple Neck Narrative: Trachea midline, no noted thyroid enlargement or nodularity Resp normal respiratory effort, no retractions, no use of accessory muscles and clear to auscultation bilaterally Resp Narrative: Diminished but clear Auscultation: Negative for rales, rhonchi or wheezes Cardio S1 normal heart sound, S2 normal heart sound, no murmurs, no rub, no gallops and no clicks; Negative for regular rate or regular rhythm Cardio Narrative: Irregularly irregular with bradycardia GI normal to inspection, nondistended, normoactive bowel sounds, soft to palpation and non-tender GI Narrative: Abdomen is scaphoid Extremity no clubbing, cyanosis or edema Extremity Narrative: Decreased lean muscle mass, radial pulses are 2+, pedal pulses are 2+ Skin no rashes or lesions noted, skin turgor normal, no jaundice, no petechiae and no mottling Skin Narrative: Few scattered ecchymotic changes Neuro oriented x3, moves all extremities and no focal motor deficits Neuro Narrative: Generalized weakness noted but no focal deficit Speech: speech normal Psych affect normal Psych Narrative: Very pleasant, interacts appropriately Results Lab / Micro Data 05/01/24 11:15 05/01/24 11:15 Labs: Laboratory Results - last 24 hr 05/01/24 11:15: WBC 7.7, RBC 2.89 L, Hgb 11.1 L, Hct 33.2 L, MCV 114.9 H, MCH 38.4 H, MCHC 33.4, RDW Std Deviation 67.2 H, RDW Coeff of Pablo 15.9 H, Plt Count 244, MPV 9.7, Immature Gran % (Auto) 0.500, Neut % (Auto) 79.9 H, Lymph % (Auto) 9.1 L, [place] % (Auto) 8.9, Eos % (Auto) 0.8, Baso % (Auto) 0.8, Absolute Neuts (auto) 6.1, Absolute Lymphs (auto) 0.70 L, Nucleated RBC % 0, Differential Comment SCANNED, Anisocytosis 1+, Sodium 138, Potassium 3.3 L, Chloride 104, Carbon Dioxide 27.0, Anion Gap 7, BUN 43 H, Creatinine 3.09 H, Estim Creat Clear Calc 16.27, Est GFR (MDRD) Af Amer 25 L, Est GFR (MDRD) Non-Af 21 L, BUN/Creatinine Ratio 13.9, Glucose 143 H, Calcium 8.6, Troponin I High Sens 32 Assessment & Plan Assessment/Plan (1) Lightheadedness: (2) Symptomatic bradycardia: (3) Hypokalemia: PLAN: Plan Lightheadedness secondary to symptomatic bradycardia -Patient lightheaded and vitals showed bradycardia which is new -Hold home amiodarone -Hold home Cardizem -Hold home metoprolol -Monitor on telemetry -TSH is slightly elevated at 4.15 so we will check free T4 but I do suspect this is euthyroid sick syndrome and not responsible for his bradycardia -If heart rates do not improve off medication will consult cardiology -No need to repeat echocardiogram as he just had one done in mid February -December need event monitor at discharge Hypokalemia -Potassium 3.3 on presentation -Repleted -Recheck in a.m. -Check a.m. magnesium level CKD stage IIIb -Baseline serum creatinine is 2.8-3.1 -Current serum creatinine 3.09 -Continue home diuretics -Repeat BMP in a.m. -Monitor renal function Debility/generalized weakness secondary to acute illness on chronic comorbidities -Consult PT/OT -Patient was to be discharged from the transitional care unit today -Hopefully still appropriate for discharge home after this hospitalization History of thoracic aortic aneurysm -Being followed by cardiology -Continue medical therapy CAD/chronic HFrEF -PCI with BMS to proximal LAD 07/2000 -Currently some alteration in his home goal-directed therapy due to bradycardia on presentation -Continue home Lasix -Last echocardiogram was done on 03/20/2024 which shows an EF of 53% improved from echo from 2022 at which time it was 35%, pulmonary systolic pressure of 64 mmHg with moderate pulmonary hypertension and severe left atrial enlargement -No aspirin secondary to previous GI bleed and chronic anemia -Patient no longer on statin per cardiology documentation -Continue Jardiance PAF -Currently normal sinus rhythm -Hold amiodarone -Hold metoprolol -Hold Cardizem -Continue apixaban 2.5 mg daily Hyperlipidemia -Patient utilizing lifestyle modifications and not on chronic statin therapy Hypothyroidism -Continue home levothyroxine -TSH slightly elevated will check free T4 however suspect this is euthyroid sick syndrome GERD with history of GI bleed -Continue Protonix 40 mg p.o. twice daily BPH with obstruction -Continue Flomax -Continue home finasteride Chronic anemia -Counts appear stable -Patient with history of GI bleed -Continue to monitor Hypertension -Hold diltiazem and metoprolol due to bradycardia -Continue isosorbide mononitrate -Continue home oral diuretic therapy -Monitor blood pressure closely with discontinuation of regular regimen due to bradycardia -As needed hydralazine available for systolic blood pressure greater than 160 History of constipation -Monitor for stool output -As needed senna available DVT prophylaxis -Heparin BID 5000 u CODE STATUS -DNR CCA okay for intubation per information from transitional care unit Charges/Coding Visit Charges Inpatient E&M: 45020 Init Hosp L3
[2024-05-01] MEDS: Potassium Chloride Oral Tablet 20 MEQ 40 MEQ PO (13:55)
[2024-05-02] MEDS: Acetaminophen 325 MG Tablet 650 MG PO (01:50)
[2024-05-02 03:44] VITALS: BP 126/62; PULSE 79; RESP 14; TEMP 36.6; O2SAT 97
[2024-05-02 07:26] LABS: Absolute Lymphocyte Count 0.94 X10^3/uL (0.83-4.51); Absolute Neutrophil Count 6.8 X10^3/uL (2.0-7.7); Basophil# 0.06 X10^3/uL; Basophil% 0.7 % (0-1); Eosinophil# 0.11 X10^3/uL; Eosinophils% 1.3 % (0-5); Hematocrit 33.2 % (40-54); Hemoglobin 11.1 g/dL (13.0-16.5); Lymphocyte # 0.94 X10^3/ul (0.83-4.51); Lymphocyte % 10.8 % (19-41); Mean Corp Hgb Conc 33.4 g/dL (32-36); Mean Corpuscular Volume 113.7 fL (80-94); Mean Platelet Vol. 9.9 fl (6.2-12.0); Monocyte# 0.69 X10^3/uL; NRBC Flagged by Analyzer 0 % (0-5); Neutrophil # 6.81 X10^3/uL (2.7-7.7); Neutrophil % 78.5 % (47-70); POSITIVE MORPHOLOGY YES; Platelet Count 223 K/mm3 (150-450); RBC Distribution Width CV 15.8 % (11.6-14.6); RBC Distribution Width SD 67.1 fl (35.1-43.9); Red Blood Count 2.92 M/mm3 (4.6-6.2); White Blood Count 8.7 K/mm3 (4.4-11.0)
[2024-05-02 07:46] LABS: Anion Gap 6 (5-15); BUN 33 mg/dL (7-18); BUN/Creat Ratio 13.3 RATIO (10-20); Calcium,Total 8.6 mg/dL (8.5-10.1); Chloride 110 mmol/L (98-107); Creatinine, Serum 2.49 mg/dL (0.70-1.30); EST Glomerular Filtration Rate 27 mL/min (>60); Est Glom Filt Rate - Afr Amer 32 mL/min (>60); Estimated Creatinine Clearance 19.38 ml/min; Glucose 81 mg/dL (74-106); Potassium 3.9 mmol/L (3.5-5.1); Sodium Level 139 mmol/L (136-145)
[2024-05-02 07:54] LABS: Differential Indicated SCAN CRITERIA MET
[2024-05-02 08:00] VITALS: O2SAT 96
[2024-05-02 09:45] VITALS: BP 135/66; PULSE 81; RESP 18; TEMP 36.5; O2SAT 95
[2024-05-02] MEDS: Senna/Docusate Sodium 1 Tablet 2 TABLET PO (09:56)
--- NOTE | 2024-05-02 12:25 | CASEMGMT ---
Patient was in [facility] TCU and was scheduled to be discharged home with home health on his day of admission to the hospital. SW met with patient. Introduced self and role at [facility]. SW asked patient if his plan is to go home with home health or back to TCU. Patient sated he plans on going home at discharge. [facility]
--- NOTE | 2024-05-02 12:40 | DS.PCM_ITS ---
Providers Date of Admission: 05/01/24 Primary Care Physician: Dr. César Chinchilla MD Reason For Visit: SYMPTOMATIC BRADYCARDIA Diagnosis Discharge Diagnosis (1) Lightheadedness: Status: Acute Code(s): R42 - Dizziness and giddiness (2) Symptomatic bradycardia: Status: Acute Code(s): R00.1 - Bradycardia, unspecified (3) Hypokalemia: Status: Acute Code(s): E87.6 - Hypokalemia Plan Lightheadedness secondary to symptomatic bradycardia -Patient lightheaded and vitals showed bradycardia which is new -Hold home amiodarone -Hold home Cardizem -Hold home metoprolol -Monitor on telemetry -TSH is slightly elevated at 4.15 so we will check free T4 but I do suspect this is euthyroid sick syndrome and not responsible for his bradycardia -If heart rates do not improve off medication will consult cardiology -No need to repeat echocardiogram as he just had one done in mid February -December need event monitor at discharge Hypokalemia -Potassium 3.3 on presentation -Repleted -Recheck in a.m. -Check a.m. magnesium level CKD stage IIIb -Baseline serum creatinine is 2.8-3.1 -Current serum creatinine 3.09 -Continue home diuretics -Repeat BMP in a.m. -Monitor renal function Debility/generalized weakness secondary to acute illness on chronic comorbidities -Consult PT/OT -Patient was to be discharged from the transitional care unit today -Hopefully still appropriate for discharge home after this hospitalization History of thoracic aortic aneurysm -Being followed by cardiology -Continue medical therapy CAD/chronic HFrEF -PCI with BMS to proximal LAD 07/2000 -Currently some alteration in his home goal-directed therapy due to bradycardia on presentation -Continue home Lasix -Last echocardiogram was done on 03/20/2024 which shows an EF of 53% improved from echo from 2022 at which time it was 35%, pulmonary systolic pressure of 64 mmHg with moderate pulmonary hypertension and severe left atrial enlargement -No aspirin secondary to previous GI bleed and chronic anemia -Patient no longer on statin per cardiology documentation -Continue Jardiance PAF -Currently normal sinus rhythm -Hold amiodarone -Hold metoprolol -Hold Cardizem -Continue apixaban 2.5 mg daily Hyperlipidemia -Patient utilizing lifestyle modifications and not on chronic statin therapy Hypothyroidism -Continue home levothyroxine -TSH slightly elevated will check free T4 however suspect this is euthyroid sick syndrome GERD with history of GI bleed -Continue Protonix 40 mg p.o. twice daily BPH with obstruction -Continue Flomax -Continue home finasteride Chronic anemia -Counts appear stable -Patient with history of GI bleed -Continue to monitor Hypertension -Hold diltiazem and metoprolol due to bradycardia -Continue isosorbide mononitrate -Continue home oral diuretic therapy -Monitor blood pressure closely with discontinuation of regular regimen due to bradycardia -As needed hydralazine available for systolic blood pressure greater than 160 History of constipation -Monitor for stool output -As needed senna available DVT prophylaxis -Heparin BID 5000 u CODE STATUS -DNR CCA okay for intubation per information from transitional care unit Medications at Discharge Home Medications tamsulosin 0.4 mg capsule 0.4 mg PO BID PROSTATE 11/18/21 vitamin B complex 1 cap PO BID SUPPLEMENT 05/01/22 ascorbic acid (vitamin C) 500 mg tablet 500 mg PO BID SUPPLEMENT 07/20/22 finasteride 5 mg tablet 5 mg PO 1200 PROSTATE 08/05/22 cholecalciferol (vitamin D3) 25 mcg (1,000 unit) capsule (Vitamin D3) 1,000 unit PO QHS SUPPLEMENT 02/19/23 empagliflozin 10 mg tablet (Jardiance) 10 mg PO DAILY DIABTETES #0 tabs 07/22/23 nitroglycerin 0.4 mg sublingual tablet 0.4 mg sublingual Q5M PRN Cardiac/Chest Pain #0 tabs 07/22/23 isosorbide mononitrate 30 mg tablet,extended release 24 hr 30 mg PO DAILY CHEST PAIN 02/28/24 magnesium chloride 64 mg (magnesium chloride) tablet,delayed release (Mag 64) 128 mg PO BID SUPPLEMENT 02/28/24 pantoprazole 40 mg tablet,delayed release 40 mg PO BID GERD 02/28/24 trazodone 50 mg tablet 25 mg PO QHS INSOMNIA 02/28/24 amiodarone 100 mg tablet 100 mg PO BID HEART #180 tabs 02/29/24 ferrous sulfate 325 mg (65 mg iron) tablet (Feosol) 325 mg PO QHS ANEMIA 03/20/24 levothyroxine 50 mcg tablet 50 mcg PO DAILY THYROID 03/20/24 apixaban 2.5 mg tablet (Eliquis) 2.5 mg PO BID Anticoagulant #60 tabs 03/24/24 furosemide 80 mg tablet 80 mg PO DAILY Diuretic #40 tabs 03/24/24 diltiazem HCl 120 mg capsule,extended release 24 hr 120 mg PO DAILY 30 days #30 caps 04/25/24 potassium chloride 20 mEq tablet,extended release(part/cryst) 20 meq PO DAILYCM #0 tabs 04/25/24 acetaminophen 500 mg tablet 1,000 mg PO Q6H PRN Pain Score 1-10 05/01/24 Weight / BMI Weight Weight: 59.9 kg Body Mass Index (BMI) 19.5 ABG / Lab / Microbiology Data 05/02/24 05:55 05/02/24 05:55 Laboratory: Laboratory Results - last 24 hr 05/01/24 11:15: TSH 4.150 H 05/02/24 05:55: WBC 8.7, RBC 2.92 L, Hgb 11.1 L, Hct 33.2 L, MCV 113.7 H, MCH 38.0 H, MCHC 33.4, RDW Std Deviation 67.1 H, RDW Coeff of Pablo 15.8 H, Plt Count 223, MPV 9.9, Immature Gran % (Auto) 0.700, Neut % (Auto) 78.5 H, Lymph % (Auto) 10.8 L, [place] % (Auto) 8.0, Eos % (Auto) 1.3, Baso % (Auto) 0.7, Absolute Neuts (auto) 6.8, Absolute Lymphs (auto) 0.94, Nucleated RBC % 0, Sodium 139, Potassium 3.9, Chloride 110 H, Carbon Dioxide 23.0, Anion Gap 6, BUN 33 H, C reatinine 2.49 H, Estim Creat Clear Calc 19.38, Est GFR (MDRD) Af Amer 32 L, Est GFR (MDRD) Non-Af 27 L, BUN/Creatinine Ratio 13.3, Glucose 81, Calcium 8.6 Meaningful Use Info Ischemic Stroke Statin Dosing Therapy Reference: STATIN DOSE THERAPY REFERENCE: * Patients > 75 years receive moderate or high dose statin therapy. * Patients 75 years or YOUNGER should receive HIGH intensity statin dose unless contraindicated. You will be required to document reason for non-treatment if statin daily dose does not meet guidelines. HIGH DOSE STATIN THERAPY DAILY Atorvastatin > than or = to 40 mg Rosuvastatin > than or = to 20 mg Amlodipine + Atorvastatin > than or = to 2.5/40 mg Ezetimibe + Simvastatin 10/80 mg Simvastatin 80mg Discharge Plan Admission Admit Date/Time: 05/01/24 12:09 Primary Reason for Your Visit: Lightheadedness Attending Provider: Leilani Stone Primary Care Provider: César Chinchilla Instructions Additional Instructions / Restrictions: 1. We suspect your lightheadedness comes from the bradycardia you had upon admission which has since resolved. Medications were discussed with your revenue cycle specialist, Dr. Molina, he recommended we continue your amiodarone and diltiazem, but discontinue your metoprolol. 2. Please follow-up with cardiology as noted below after discharge. Discharge Orders/Prescriptions Prescriptions: Continued tamsulosin 0.4 mg capsule 0.4 mg PO BID ascorbic acid (vitamin C) 500 mg tablet 500 mg PO BID finasteride 5 mg tablet 5 mg PO 1200 trazodone 50 mg tablet 25 mg PO QHS magnesium chloride [Mag 64] 64 mg tablet,delayed release (DR/EC) 128 mg PO BID pantoprazole 40 mg tablet,delayed release (DR/EC) 40 mg PO BID isosorbide mononitrate 30 mg tablet extended release 24 hr 30 mg PO DAILY vitamin B complex Capsule 1 cap PO BID cholecalciferol (vitamin D3) [Vitamin D3] 25 mcg (1,000 unit) Capsule 1,000 unit PO QHS nitroglycerin 0.4 mg Tablet, Sublingual 0.4 mg sublingual Q5M PRN (Reason: Cardiac/Chest Pain) Qty: 0 0RF Jardiance 10 mg Tablet 10 mg PO DAILY Qty: 0 0RF acetaminophen 500 mg Tablet 1,000 mg PO Q6H PRN (Reason: Pain Score 1-10) ferrous sulfate [Feosol] 325 mg (65 mg iron) tablet 325 mg PO QHS levothyroxine 50 mcg Tablet 50 mcg PO DAILY Eliquis 2.5 mg tablet 2.5 mg PO BID Qty: 60 2RF furosemide 80 mg Tablet 80 mg PO DAILY Qty: 40 2RF potassium chloride 20 mEq Tablet,Er Particles/Crystals 20 meq PO DAILYCM Qty: 0 0RF diltiazem HCl 120 mg Capsule,Extended Release 24hr 120 mg PO DAILY 30 Days Qty: 30 0RF amiodarone 100 mg tablet 100 mg PO BID Qty: 180 3RF Discontinued metoprolol tartrate 25 mg tablet 12.5 mg PO BID Other Ambulatory Orders: Cardiac Holter Monitor, 48 Hrs (Routine) Timeframe: 2 Days Facility: [facility] - Location: Cardiovascular Services Ordered By: Dr. Leilani Stone Referrals / Follow Up: César Chinchilla MD [Primary Care Provider] - Within 1 Week Krishna Grace NP, THEATER PROJECTIONIST-C [Med Staff - Adv Practice Prof] - 05/09/24 3:30 pm Disposition Disposition (needs filled in before D/C Order can be placed): Home Health Service Charges/Coding Visit Charges Inpatient E&M: 09737 Disch Hosp >30min
--- NOTE | 2024-05-02 12:40 | PCM.DC.SUM ---
Providers Date of Admission: 05/01/24 Date of Discharge: 05/02/24 Primary Care Physician: Dr. César Chinchilla MD Reason For Visit: SYMPTOMATIC BRADYCARDIA Diagnosis Discharge Diagnosis (1) Lightheadedness: Status: Acute Code(s): R42 - Dizziness and giddiness (2) Symptomatic bradycardia: Status: Acute Code(s): R00.1 - Bradycardia, unspecified (3) Hypokalemia: Status: Acute Code(s): E87.6 - Hypokalemia Medications at Discharge Home Medications tamsulosin 0.4 mg capsule 0.4 mg PO BID PROSTATE 11/18/21 vitamin B complex 1 cap PO BID SUPPLEMENT 05/01/22 ascorbic acid (vitamin C) 500 mg tablet 500 mg PO BID SUPPLEMENT 07/20/22 finasteride 5 mg tablet 5 mg PO 1200 PROSTATE 08/05/22 cholecalciferol (vitamin D3) 25 mcg (1,000 unit) capsule (Vitamin D3) 1,000 unit PO QHS SUPPLEMENT 02/19/23 empagliflozin 10 mg tablet (Jardiance) 10 mg PO DAILY DIABTETES #0 tabs 07/22/23 nitroglycerin 0.4 mg sublingual tablet 0.4 mg sublingual Q5M PRN Cardiac/Chest Pain #0 tabs 07/22/23 isosorbide mononitrate 30 mg tablet,extended release 24 hr 30 mg PO DAILY CHEST PAIN 02/28/24 magnesium chloride 64 mg (magnesium chloride) tablet,delayed release (Mag 64) 128 mg PO BID SUPPLEMENT 02/28/24 pantoprazole 40 mg tablet,delayed release 40 mg PO BID GERD 02/28/24 trazodone 50 mg tablet 25 mg PO QHS INSOMNIA 02/28/24 amiodarone 100 mg tablet 100 mg PO BID HEART #180 tabs 02/29/24 ferrous sulfate 325 mg (65 mg iron) tablet (Feosol) 325 mg PO QHS ANEMIA 03/20/24 levothyroxine 50 mcg tablet 50 mcg PO DAILY THYROID 03/20/24 apixaban 2.5 mg tablet (Eliquis) 2.5 mg PO BID Anticoagulant #60 tabs 03/24/24 furosemide 80 mg tablet 80 mg PO DAILY Diuretic #40 tabs 03/24/24 diltiazem HCl 120 mg capsule,extended release 24 hr 120 mg PO DAILY 30 days #30 caps 04/25/24 potassium chloride 20 mEq tablet,extended release(part/cryst) 20 meq PO DAILYCM #0 tabs 04/25/24 acetaminophen 500 mg tablet 1,000 mg PO Q6H PRN Pain Score 1-10 05/01/24 Hospital Course Operations None Procedures EKG and - (CXR) Summary of Care Provided Minutes Spent on Discharge: 38 Hospital Course: RICHIE HANSEN, is a 83 M who presented to the emergency department [facility] on 05/01/2024 from the transitional care unit for concerns of bradycardia. The patient indicated he felt more lightheaded today and they checked his vitals and he was noted to be bradycardic. He does have a history of atrial fibrillation and takes amiodarone, diltiazem, and metoprolol at baseline and has been on these for a significant amount of time however his renal function has slowly been declining. He also takes Eliquis 2.5 mg daily for his atrial fibrillation. He was recently seen in the curtain mender office on 04/17/2024 at which time he had a heart rate of 77 on the above medications. He had a recent hospitalization here for some rectal bleeding and acute on chronic heart failure with reduced ejection fraction and has currently been receiving rehab over the transitional care unit. This was based on an echo from 2022 at which time his EF was 35% however most recently his echo have is improved to showing an EF of 53%. He did have a recent echocardiogram done on 03/21/2024 which showed an EF of 53%, severely enlarged left atrium, mild to moderate mitral valve insufficiency, moderate pulmonary hypertension with a pulmonary artery systolic pressure 64 mmHg. Evidently he was to be discharged from the transitional care unit today to home. Vital signs on presentation showed temperature of 98, heart rate 35, blood pressure 124/60, respiratory rate 17 and pulse ox was 97% on room air. CBC shows a normal white count with a stable hemoglobin at 11.1. Chemistry panel shows mild hypokalemia with potassium of 3.3 but electrolytes are otherwise unremarkable. BUN and serum creatinine are stable when compared to previous at 43 and 3.09 respectively. Blood sugar is 143. Troponin was 32. TSH was 4.15. EKG shows bradycardia with atrial fibrillation. Chest x-ray shows no acute findings. He was admitted to the telemetry floor and monitored. We held his amiodarone, Cardizem, and metoprolol and his heart rate slowly improved up to the point where discharge she has trended up to in the 80s. Through the night on the day prior to discharge she was in the 70s all evening. I discussed the case with his curtain mender who felt that we should go ahead and restart his amiodarone and Cardizem and discontinue his metoprolol. Will also obtain a 48-hour Holter monitor at the time of discharge and have arranged follow-up with cardiology on 04/29/2024 for further evaluation. At the time of discharge the lightheadedness had completely resolved and the patient was anxious to go home. He had recently been admitted to transitional care unit however on the day of admission here the plan was for discharge home. Plan will remain the same and he will discharge home with home health care today. We have also asked that he follow-up with his primary care physician within the next week for hospital follow-up. Discharge diagnoses: Lightheadedness-resolved Symptomatic bradycardia-resolved Hypokalemia-resolved CKD stage IIIb Debility Generalized weakness secondary to acute illness and chronic comorbidities History of thoracic aortic aneurysm CAD Chronic HFrEF PAF Hyperlipidemia Hypothyroidism GERD with history of GI bleed BPH with obstruction Chronic anemia Hypertension History of constipation Physical Exam Narrative Lightheadedness has resolved. Patient anxious to go home. Const alert, oriented x3 and no apparent distress; Negative for average body habitus, healthy appearing or well nourished Constitutional Narrative: Thin, elderly, frail, white male, lying in bed, currently appears comfortable nontoxic, interacts appropriately, watching television making a phone call on his cell phone, appears chronically ill General Appearance: cooperative, comfortable, well kempt and well developed Exam Limitations: no limitations Nutritional Appearance: thin HEENT normocephalic, head/scalp atraumatic and moist oral mucous membranes; Negative for hearing grossly normal bilaterally HEENT Narrative: Dentition is poor, Mallampati 2, no thrush Eyes PERRL, EOMs intact bilaterally and conjunctivae normal Eyes Narrative: No scleral icterus Neck no lymphadenopathy and supple Neck Narrative: Trachea midline, no noted thyroid enlargement or nodularity Resp normal respiratory effort, no retractions, no use of accessory muscles and clear to auscultation bilaterally Resp Narrative: Diminished but clear Auscultation: Negative for rales, rhonchi or wheezes Cardio regular rate, S1 normal heart sound, S2 normal heart sound, no murmurs, no rub, no gallops and no clicks; Negative for regular rhythm Cardio Narrative: Irregularly irregular with normalized heart rate GI normal to inspection, nondistended, normoactive bowel sounds, soft to palpation and non-tender GI Narrative: Abdomen is scaphoid Extremity no clubbing, cyanosis or edema Extremity Narrative: Decreased lean muscle mass, radial pulses are 2+, pedal pulses are 2+ Skin no rashes or lesions noted, skin turgor normal, no jaundice, no petechiae and no mottling Skin Narrative: Few scattered ecchymotic changes Neuro oriented x3, moves all extremities and no focal motor deficits Neuro Narrative: Generalized weakness noted but no focal deficit Speech: speech normal Psych affect normal Psych Narrative: Very pleasant, interacts appropriately Weight / BMI Weight Weight: 59.9 kg Body Mass Index (BMI) 19.5 ABG / Lab / Microbiology Data 05/02/24 05:55 05/02/24 05:55 Laboratory: Laboratory Results - last 24 hr 05/01/24 11:15: TSH 4.150 H 05/02/24 05:55: WBC 8.7, RBC 2.92 L, Hgb 11.1 L, Hct 33.2 L, MCV 113.7 H, MCH 38.0 H, MCHC 33.4, RDW Std Deviation 67.1 H, RDW Coeff of Pablo 15.8 H, Plt Count 223, MPV 9.9, Immature Gran % (Auto) 0.700, Neut % (Auto) 78.5 H, Lymph % (Auto) 10.8 L, [place] % (Auto) 8.0, Eos % (Auto) 1.3, Baso % (Auto) 0.7, Absolute Neuts (auto) 6.8, Absolute Lymphs (auto) 0.94, Nucleated RBC % 0, Sodium 139, Potassium 3.9, Chloride 110 H, Carbon Dioxide 23.0, Anion Gap 6, BUN 33 H, Creatinine 2.49 H, Estim Creat Clear Calc 19.38, Est GFR (MDRD) Af Amer 32 L, Est GFR (MDRD) Non-Af 27 L, BUN/Creatinine Ratio 13.3, Glucose 81, Calcium 8.6 Meaningful Use Info Meaningful Use Meaningful Use Diagnoses (Choose all that apply): None applicable Ischemic Stroke Statin Dosing Therapy Reference: STATIN DOSE THERAPY REFERENCE: * Patients > 75 years receive moderate or high dose statin therapy. * Patients 75 years or YOUNGER should receive HIGH intensity statin dose unless contraindicated. You will be required to document reason for non-treatment if statin daily dose does not meet guidelines. HIGH DOSE STATIN THERAPY DAILY Atorvastatin > than or = to 40 mg Rosuvastatin > than or = to 20 mg Amlodipine + Atorvastatin > than or = to 2.5/40 mg Ezetimibe + Simvastatin 10/80 mg Simvastatin 80mg Discharge Plan Admission Admit Date/Time: 05/01/24 12:09 Primary Reason for Your Visit: Lightheadedness Attending Provider: Leilani Stone Primary Care Provider: César Chinchilla Instructions Additional Instructions / Restrictions: 1. We suspect your lightheadedness comes from the bradycardia you had upon admission which has since resolved. Medications were discussed with your curtain mender, Dr. Molina, he recommended we continue your amiodarone and diltiazem, but discontinue your metoprolol. 2. Please follow-up with cardiology as noted below after discharge. Discharge Orders/Prescriptions Prescriptions: Continued tamsulosin 0.4 mg capsule 0.4 mg PO BID ascorbic acid (vitamin C) 500 mg tablet 500 mg PO BID finasteride 5 mg tablet 5 mg PO 1200 trazodone 50 mg tablet 25 mg PO QHS magnesium chloride [Mag 64] 64 mg tablet,delayed release (DR/EC) 128 mg PO BID pantoprazole 40 mg tablet,delayed release (DR/EC) 40 mg PO BID isosorbide mononitrate 30 mg tablet extended release 24 hr 30 mg PO DAILY vitamin B complex Capsule 1 cap PO BID cholecalciferol (vitamin D3) [Vitamin D3] 25 mcg (1,000 unit) Capsule 1,000 unit PO QHS nitroglycerin 0.4 mg Tablet, Sublingual 0.4 mg sublingual Q5M PRN (Reason: Cardiac/Chest Pain) Qty: 0 0RF Jardiance 10 mg Tablet 10 mg PO DAILY Qty: 0 0RF acetaminophen 500 mg Tablet 1,000 mg PO Q6H PRN (Reason: Pain Score 1-10) ferrous sulfate [Feosol] 325 mg (65 mg iron) tablet 325 mg PO QHS levothyroxine 50 mcg Tablet 50 mcg PO DAILY Eliquis 2.5 mg tablet 2.5 mg PO BID Qty: 60 2RF furosemide 80 mg Tablet 80 mg PO DAILY Qty: 40 2RF potassium chloride 20 mEq Tablet,Er Particles/Crystals 20 meq PO DAILYCM Qty: 0 0RF diltiazem HCl 120 mg Capsule,Extended Release 24hr 120 mg PO DAILY 30 Days Qty: 30 0RF amiodarone 100 mg tablet 100 mg PO BID Qty: 180 3RF Discontinued metoprolol tartrate 25 mg tablet 12.5 mg PO BID Other Ambulatory Orders: Cardiac Holter Monitor, 48 Hrs (Routine) Timeframe: 2 Days Facility: [facility] - Location: Cardiovascular Services Ordered By: Dr. Leilani Stone Referrals / Follow Up: César Chinchilla MD [Primary Care Provider] - Within 1 Week Krishna Grace NP, MACHINE OPERATOR ASSISTANT-C [Med Staff - Adv Practice Prof] - 05/09/24 3:30 pm Disposition Disposition (needs filled in before D/C Order can be placed): Home Health Service Charges/Coding Visit Charges Inpatient E&M: 59832 Disch Hosp >30min
[2024-05-02 13:03] VITALS: BP 135/66; PULSE 81; RESP 18; TEMP 36.5; O2SAT 95
--- NOTE | 2024-05-02 13:25 | CASEMGMT ---
RADHA PORTER updated by hospitalist that patient has his medications prepackaged with pharmacy and will need to stop taking metoprolol. RADHA PORTER called [facility] to updated regarding stopping metoprolol. Per pharmacist, patient's medications have not been packaged yet as they wanted to verify medications at discharge. RADHA PORTER faxed discharge medications to [facility]. RADHA PORTER called [facility] to confirm discharge, referral to initially sent by TCU to [facility] Per [facility], start of care planned for Tuesday. RADHA PORTER updated discharge plan. RADHA PORTER in to updated patient regarding HHC and medications to be packaged by pharmacy. Patient voiced understanding and appreciation. Patient had no further questions or concerns.
--- NOTE | 2024-05-02 13:39 | PHA.DC.MR.R ---
Pharmacy [place] [facility] Reconciliation Pharmacy Service has performed discharge medication reconciliation for this patient. The patient's discharge medication list was reviewed for discrepancies and discrepancies were resolved. Medications at Discharge Home Medications tamsulosin 0.4 mg capsule 0.4 mg PO BID PROSTATE 11/18/21 vitamin B complex 1 cap PO BID SUPPLEMENT 05/01/22 ascorbic acid (vitamin C) 500 mg tablet 500 mg PO BID SUPPLEMENT 07/20/22 finasteride 5 mg tablet 5 mg PO 1200 PROSTATE 08/05/22 cholecalciferol (vitamin D3) 25 mcg (1,000 unit) capsule (Vitamin D3) 1,000 unit PO QHS SUPPLEMENT 02/19/23 empagliflozin 10 mg tablet (Jardiance) 10 mg PO DAILY DIABTETES #0 tabs 07/22/23 nitroglycerin 0.4 mg sublingual tablet 0.4 mg sublingual Q5M PRN Cardiac/Chest Pain #0 tabs 07/22/23 isosorbide mononitrate 30 mg tablet,extended release 24 hr 30 mg PO DAILY CHEST PAIN 02/28/24 magnesium chloride 64 mg (magnesium chloride) tablet,delayed release (Mag 64) 128 mg PO BID SUPPLEMENT 02/28/24 pantoprazole 40 mg tablet,delayed release 40 mg PO BID GERD 02/28/24 trazodone 50 mg tablet 25 mg PO QHS INSOMNIA 02/28/24 amiodarone 100 mg tablet 100 mg PO BID HEART #180 tabs 02/29/24 ferrous sulfate 325 mg (65 mg iron) tablet (Feosol) 325 mg PO QHS ANEMIA 03/20/24 levothyroxine 50 mcg tablet 50 mcg PO DAILY THYROID 03/20/24 apixaban 2.5 mg tablet (Eliquis) 2.5 mg PO BID Anticoagulant #60 tabs 03/24/24 furosemide 80 mg tablet 80 mg PO DAILY Diuretic #40 tabs 03/24/24 diltiazem HCl 120 mg capsule,extended release 24 hr 120 mg PO DAILY heart rate 30 days #30 caps 04/25/24 potassium chloride 20 mEq tablet,extended release(part/cryst) 20 meq PO DAILYCM supplement #0 tabs 04/25/24 acetaminophen 500 mg tablet 1,000 mg PO Q6H PRN Pain Score 1-10 05/01/24
--- NOTE | 2024-05-02 13:41 | CASEMGMT ---
Met with patient to complete [employer] form. [employer] form explained to patient who voiced understanding and signed form. Original form placed in pt?s chart and copy provided to patient. Harriet Jimenez, Discharge Planning Asst
[2024-05-02 13:55] VITALS: BP 152/113; PULSE 67; RESP 18; TEMP 36.6; O2SAT 100
[2024-05-02] MEDS: dilTIAZem CD 120 MG Capsule PO (13:59)
== END 2024-05-02 12:45 | disposition home health service (06) ==
LOC: ED 11:20 → PCU 13:09
PROVIDERS: Admitting Provider Internal Medicine; Emergency Provider Emergency Medicine; PCP Family Medicine; Visit Provider Internal Medicine
DX: R00.1 Bradycardia, unspecified (principal); I13.0 Hypertensive heart and chronic kidney disease with heart failure and stage 1 through stage 4 chronic kidney disease, or unspecified chronic kidney disease; I50.22 Chronic systolic (congestive) heart failure; J43.9 Emphysema, unspecified; I48.0 Paroxysmal atrial fibrillation; N18.32 Chronic kidney disease, stage 3b; R42 Dizziness and giddiness; R53.81 Other malaise; E87.6 Hypokalemia; Z79.01 Long term (current) use of anticoagulants; I25.10 Atherosclerotic heart disease of native coronary artery without angina pectoris; E78.00 Pure hypercholesterolemia, unspecified; N40.1 Benign prostatic hyperplasia with lower urinary tract symptoms; N13.8 Other obstructive and reflux uropathy; E03.9 Hypothyroidism, unspecified; K21.9 Gastro-esophageal reflux disease without esophagitis; Z79.899 Other long term (current) drug therapy; Z79.890 Hormone replacement therapy; D64.9 Anemia, unspecified
CPT/HCPCS: 36415; 71045; 80048; 84443; 84484; 85025; 93005; 94668; 99221; 99252; 99284; J7030; A4216; G0378; G0463

== ENCOUNTER → 2024-05-07 | Outpatient (CLI) | payer MEDICARE, OTHER, SELFPAY ==
[2024-05-07 15:21] LABS: Absolute Lymphocyte Count 1.22 X10^3/uL (0.83-4.51); Absolute Neutrophil Count 6.4 X10^3/uL (2.0-7.7); Basophil# 0.07 X10^3/uL; Basophil% 0.8 % (0-1); Eosinophil# 0.09 X10^3/uL; Eosinophils% 1.1 % (0-5); Hematocrit 37.3 % (40-54); Hemoglobin 12.3 g/dL (13.0-16.5); Lymphocyte # 1.22 X10^3/ul (0.83-4.51); Lymphocyte % 14.3 % (19-41); Mean Corpuscular Hgb 38.8 pg (27.0-32.0); Mean Corpuscular Volume 117.7 fL (80-94); Mean Platelet Vol. 10.4 fl (6.2-12.0); Monocyte# 0.75 X10^3/uL; Monocyte% 8.8 % (0-10); NRBC Flagged by Analyzer 0 % (0-5); Neutrophil # 6.36 X10^3/uL (2.7-7.7); Neutrophil % 74.5 % (47-70); POSITIVE MORPHOLOGY YES; Platelet Count 287 K/mm3 (150-450); RBC Distribution Width CV 16.1 % (11.6-14.6); Red Blood Count 3.17 M/mm3 (4.6-6.2); White Blood Count 8.5 K/mm3 (4.4-11.0)
[2024-05-07 16:30] LABS: ALB/GLOB Ratio 0.9 RATIO (0.9-2.4); AST(SGOT) 17 U/L (15-37); Alanine Aminotransfer ALT/SGPT 23 U/L (16-61); Albumin, Serum 3.6 g/dL (3.2-5.0); Alkaline Phosphatase 70 U/L (45-117); Anion Gap 9 (5-15); BUN 51 mg/dL (7-18); Calcium,Total 9.7 mg/dL (8.5-10.1); Chloride 104 mmol/L (98-107); Creatinine, Serum 3.18 mg/dL (0.70-1.30); EST Glomerular Filtration Rate 20 mL/min (>60); Est Glom Filt Rate - Afr Amer 24 mL/min (>60); Globulin 4.2 g/dL (2.2-4.2); Glucose 94 mg/dL (74-106); Magnesium 2.6 mg/dL (1.6-2.6); Potassium 4.3 mmol/L (3.5-5.1); Protein, Total 7.8 g/dL (6.4-8.2); Sodium Level 137 mmol/L (136-145)
[2024-05-07 17:01] LABS: Differential Indicated SCAN CRITERIA MET
[2024-05-07 17:03] LABS: Anisocytosis 2+; Macrocytosis 2+; Platelet Estimate ADEQUATE (ADEQ); Red Cell Morphology N CHROM NORMAL (NORM C&C)
== END | disposition home or self-care (01) ==
LOC: MFPLAB 11:49
PROVIDERS: PCP Family Medicine; Visit Provider Family Medicine
DX: N18.30 Chronic kidney disease, stage 3 unspecified (principal)
CPT/HCPCS: 36415; 80053; 83735; 85025

== ENCOUNTER → 2024-05-08 | Outpatient (CLI) | payer MEDICARE, OTHER, SELFPAY | END | disposition home or self-care (01) | LOC: PSN 13:13 | PROVIDERS: PCP Family Medicine; Referring Provider Internal Medicine; Visit Provider Internal Medicine | DX: R00.1 Bradycardia, unspecified (principal) | CPT/HCPCS: 93225; 93226 ==

== ENCOUNTER → 2024-05-17 | Outpatient (CLI) | payer MEDICARE, OTHER, SELFPAY ==
[2024-05-17 13:32] LABS: Anion Gap 8 (5-15); BUN 53 mg/dL (7-18); BUN/Creat Ratio 17.4 RATIO (10-20); Calcium,Total 9.3 mg/dL (8.5-10.1); Chloride 105 mmol/L (98-107); Creatinine, Serum 3.05 mg/dL (0.70-1.30); EST Glomerular Filtration Rate 21 mL/min (>60); Est Glom Filt Rate - Afr Amer 25 mL/min (>60); Glucose 91 mg/dL (74-106); Potassium 3.8 mmol/L (3.5-5.1); Sodium Level 140 mmol/L (136-145)
[2024-05-17 15:36] LABS: Protein, Urine (Random) 10.9 mg/dL (<11.9); Protein:Creat Ratio 221 mg/g CRE (0-200)
== END | disposition home or self-care (01) ==
LOC: LAB 11:57
PROVIDERS: PCP Family Medicine; Referring Provider Nurse Practitioner Adult Health; Visit Provider Nurse Practitioner Adult Health
DX: N18.32 Chronic kidney disease, stage 3b (principal)
CPT/HCPCS: 36415; 80048; 82570; 84156

== ENCOUNTER → 2024-05-23 | Outpatient (CLI) | payer MEDICARE, OTHER, SELFPAY ==
--- NOTE | 2024-05-23 11:38 | BD_ITS ---
STUDY: DUAL ENERGY X-RAY ABSORPTIOMETRY / DXA REASON FOR EXAM: Male, 83 years old. 733.00OsteoporosisBONE DENSITY REASON FOR EXAM TECHNIQUE: Bone Mineral Density (BMD) measurements of left forearm and bilateral hips were obtained. COMPARISON: Comparison is made with prior examination dated January 09, 2019. FINDINGS: Left Femur Total: g/cm2 (0.644) / T-score (-2.6) / Z-score (-1.4) Left Femoral Neck: g/cm2 (0.551) / T-score (-2.8) / Z-score (-1.2) Right Femur Total: g/cm2 (0.705) / T-score (-2.2) / Z-score (-1.0) Right Femoral Neck: g/cm2 (0.610) / T-score (-2.4) / Z-score (-0.7) Left Forearm: g/cm2 (0.683) / T-score (-0.1) / Z-score (2.) The T-Scores on the most recent prior examination were: Left Femur Total: which represents a worsening of 12.5%. Right Femur Total: which represents a worsening of 12.7%. BD/Dexa Bone Density Study IMPRESSION: The patient is considered osteoporotic as outlined below according to World Andreas Organization (WHO) criteria with a high fracture risk. There has been worsening of bone density since the previous examination. Reference Information: The T-score is the number of standard deviations above or below the standard which is normal for young adults at their peak bone mineral density. The World Health Organization (WHO) interprets the T-scores as follows: Above -1 Normal bone density Between -1 and -2.5 Osteopenia Equal to / or below -2.5 Osteoporosis As a practical clinical guideline, osteopenia may be graded as follows: Mild -1 through -1.5 Moderate -1.6 through -2.0 Severe -2.1 through -2.4 The Z-score is the number of standard deviations above or below age-matched controls. A Z-score of less than -1.5 would be considered abnormal. References: 1. NIH Osteoporosis and Related Bone Diseases www osteo.org 2. International Society for Clinical Densitometry www iscd.org 3. National Osteoporosis Foundation www nof.org Electronically Signed: Wilfred Milligan MD at 8:16 EDT ,
== END | disposition home or self-care (01) ==
LOC: OPBD 11:38
PROVIDERS: PCP Family Medicine; Referring Provider Family Medicine; Visit Provider Family Medicine
DX: M81.0 Age-related osteoporosis without current pathological fracture (principal)
CPT/HCPCS: 77080

== ENCOUNTER → 2024-06-21 | Outpatient (CLI) | payer MEDICARE, OTHER, SELFPAY ==
--- NOTE | 2024-06-21 16:03 | RAD_ITS ---
EXAM: XR CHEST, 2 VIEWS CLINICAL INDICATION: LLL RALES TECHNIQUE: Frontal and lateral views of the chest. COMPARISON: May 01, 2024 chest radiograph, abdomen and pelvis CT March 16, 2024 mild cardiomegaly slight pericardial effusion, tortuous thoracoabdominal aorta contour diverticulosis, multilevel vertebroplasty and compression deformities of L1, T12 T11, T10. FINDINGS: LUNGS AND PLEURAL SPACES: Significant infiltrates or effusions. Stable mildly low lung volumes. No pneumothorax. HEART: Stable mild cardiomegaly. MEDIASTINUM: Stable mediastinal contours. BONES/JOINTS: Stable vertebroplasty material in T7, T10, T12, L1, and marked compression deformities of multiple additional levels, especially T9, T11. SOFT TISSUES: Unremarkable. RAD/Chest PA and Lateral IMPRESSION: Stable chest. No significant infiltrates or effusions. Electronically Signed: Marcella Brian MD at 19:18 EDT ,
== END | disposition home or self-care (01) ==
PROVIDERS: PCP Family Medicine; Referring Provider Family Medicine; Visit Provider Family Medicine
DX: J98.11 Atelectasis (principal)
CPT/HCPCS: 71046

== ENCOUNTER → 2024-07-03 | Outpatient (CLI) | payer MEDICARE, OTHER, SELFPAY ==
[2024-07-03 15:56] LABS: ALB/GLOB Ratio 0.8 RATIO (0.9-2.4); AST(SGOT) 16 U/L (15-37); Alanine Aminotransfer ALT/SGPT 25 U/L (16-61); Albumin, Serum 3.3 g/dL (3.2-5.0); Alkaline Phosphatase 71 U/L (45-117); Anion Gap 8 (5-15); BUN 57 mg/dL (7-18); BUN/Creat Ratio 19.1 RATIO (10-20); Calcium,Total 8.8 mg/dL (8.5-10.1); Chloride 113 mmol/L (98-107); Creatinine, Serum 2.99 mg/dL (0.70-1.30); EST Glomerular Filtration Rate 21 mL/min (>60); Est Glom Filt Rate - Afr Amer 26 mL/min (>60); Globulin 4.3 g/dL (2.2-4.2); Glucose 80 mg/dL (74-106); Protein, Total 7.6 g/dL (6.4-8.2); Sodium Level 139 mmol/L (136-145)
== END | disposition home or self-care (01) ==
PROVIDERS: Registered Nurse; PCP Family Medicine
DX: R63.1 Polydipsia (principal)
CPT/HCPCS: 36415; 80053

== ENCOUNTER 2024-07-11 12:44 | Outpatient (RCR) | payer MEDICARE, OTHER, SELFPAY ==
--- NOTE | 2024-07-11 13:57 | HP.PTEVAL_ITS ---
Patient's Visit Information Visit Information Visit Information: RICHIE HANSEN is a 84 year old M referred to Physical Therapy by Dr. César Chinchilla MD with a diagnosis of ILLIOCOSTALIS SYNDROME. Date of Evaluation: 07/11/24 Physical Therapist: Bebo Shin, PT, Cert MDT, OCS Visit Plan Frequency: 2x /Week Duration: 4 Weeks Plan: PT INTERVENTIONS BLE STRENGTHENING ,DLS ,POSTURAL EX'S ENDURANCE EX'S AND FUNCTIONAL STRENGTHENING Subjective Subjective: This 84 y/o male presents to physical therapy with back pain and weakness . Patient has had back pain many years.Patient has 3 prior surgery lsst surgery lumbar fusion ~ 5 years ago. Patient states having foot surgery to tomorrow. 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 Patient has been using walker but past 2 weeks started using cane. Aggravating factors walking/standing and unable to lift or bend. Alleviating factors rest. Coughing/sneezing -. Bowel/bladder. Patient sleeping is affected by pain. Denies paresthesia/tingling -.Patient condition affects QOL and comorbities influences condition. Patient has bee in PT for back pain and weakness. Patient goals to getting stronger.Patient states being fatigue rest periods SOCAIL: single VOCATION: RETIRED Pain Bilateral Ankle: Pain Intensity (Out of 10): 4 Pain Intensity Range: 10 Objective Objective: POSTURE: mod thoracic kyphosis PALAPTION: LS spine GAIT: ambulates with straight cane slow lenard decrease step length hips/knees flexed NEURO: denies paresthesia/tingling ,reflexes L3-4,L4-5,L5-S1 1/3 LUMBAR ROM: flexion mod loss ,extension severe loss ,side glides mod loss FLEXABILITY: hamstrings mod tight ,piriformis mod tight MMT: quads/hams 4/5 ,( peak force) hip flexion right 13.9 ,left 11.8 n,hip abd right 5.1,left 4.8 Special Tests L/S Slump test left side: Negative L/S Slump test right side: Negative L/S Left Straight Leg Raise: Negative L/S Right Straight Leg Raise: Negative Balance/Special Test Scores Lower Extremity Functional Score: 23 Goals Goal 1:: Patient to be I with HEP for strengthening Goal Time Frame: 4-6 Weeks Goal 2:: Patient to improve peak force of hips by 5-10 # to improve strength for gait Goal Time Frame: 4-6 Weeks Goal 3:: Patient to improve lumbar ROM for function of recovery for ADLS and put on shoes Goal Time Frame: 4-6 Weeks Goal 4:: Patient demonstrate 40% improvement with increase function and less pain Goal Time Frame: 4-6 Weeks Goal 5:: Patient to improve LFES score by 5 points to improve QOL Goal Time Frame: 4-6 Weeks Rehabilitation Potential Physical Therapy Diagnosis: This patient has low back pain chronic with generalized weakness and comorbities to influence condition along with decrease endurance this benefit from skilled PT Rehabilitation Potential: Fair Anticipated Interventions Patient/Client Instruction: Educate patient on: Condition and Plan of Care For the Purpose of:: To decrease pain, To decrease swelling/inflammation, To improve muscle performance and motor function, To improve ability to perform ADL's, To increase tolerance to activity/condition/position, To improve ability of physical actions for home/community/work/leisure, To improve gait and locomotor functions, To decrease soft tissue restriction, To increase flexibility/ROM, To improve endurance and To improve tolerance to ADL's Therapeutic Exercise to Include: Strength training, Body mechanics, Postural training, Flexibilty training and Tasneem Exercises For the Purpose of:: To decrease pain, To increase ROM, To improve muscle performance and motor function, To improve ability to perform ADL's, To increase tolerance to activity/condition/position, To improve ability of physical actions for home/community/work/leisure, To improve gait and locomotor functions, To improve health of tissue, To decrease soft tissue restriction, To increase flexibility/ROM and To improve tolerance to ADL's Text: Thank you for the opportunity to evaluate your patient. For Medicare and Medicare HMO plans, please review the plan of care and approve it. It will need to be FAXED BACK to us at [phone] for Medicare purposes. For Medicare only, by signing this I certify the plan of care. Please let me know if there are questions or concerns regarding this plan of care. Physician Signature: Date:
--- NOTE | 2024-08-28 15:25 | HP.PTDCNRP_ITS ---
Patient Information Patient Information: RICHIE HANSEN was seen in my office for initial evaluation on 07/11/24. The following Plan of Care was established for this patient: POC Established Initial Frequency: 2x /Week Initial Duration: 4 Weeks Anticipated Interventions Patient/Client Instruction: Educate patient on: Condition and Plan of Care For the Purpose of:: To decrease pain, To decrease swelling/inflammation, To improve muscle performance and motor function, To improve ability to perform ADL's, To increase tolerance to activity/condition/position, To improve ability of physical actions for home/community/work/leisure, To improve gait and locomotor functions, To decrease soft tissue restriction, To increase flexibility/ROM, To improve endurance and To improve tolerance to ADL's Therapeutic Exercise to Include: Strength training, Body mechanics, Postural training, Flexibilty training and Tasneem Exercises For the Purpose of:: To decrease pain, To increase ROM, To improve muscle performance and motor function, To improve ability to perform ADL's, To increase tolerance to activity/condition/position, To improve ability of physical actions for home/community/work/leisure, To improve gait and locomotor functions, To improve health of tissue, To decrease soft tissue restriction, To increase flexibility/ROM and To improve tolerance to ADL's Last Seen Last Seen: This patient was last seen in our office . Pertinent comments regarding their P hysical therapy will appear below: Patient was seen for PT for Initial evaluation for HEP At this point I will be discontinuing this patient from physical therapy. I would be happy to see this patient again in the future if found appropriate by the physician. Thank you! Bebo Shin, PT, Cert MDT, OCS Balance/Gait/Functional tests Balance/Special Test Scores Lower Extremity Functional Score: 23
== END 2024-07-11 19:00 | disposition home or self-care (01) ==
LOC: PT 12:44
PROVIDERS: PCP Family Medicine; Referring Provider Family Medicine; Visit Provider Family Medicine
DX: M62.89 Other specified disorders of muscle (principal)
CPT/HCPCS: 97110; 97162

== ENCOUNTER → 2024-07-16 | Outpatient (CLI) | payer MEDICARE, OTHER, SELFPAY | END | disposition home or self-care (01) | PROVIDERS: PCP Family Medicine; Visit Provider Family Medicine | DX: R19.7 Diarrhea, unspecified (principal) | CPT/HCPCS: 87493 ==

== ENCOUNTER → 2024-07-23 | Outpatient (CLI) | payer MEDICARE, OTHER, SELFPAY ==
[2024-07-23 15:27] LABS: Absolute Neutrophil Count 6.6 X10^3/uL (2.0-7.7); Basophil# 0.07 X10^3/uL; Basophil% 0.8 % (0-1); Eosinophil# 0.13 X10^3/uL; Eosinophils% 1.6 % (0-5); Hematocrit 40.8 % (40-54); Hemoglobin 13.6 g/dL (13.0-16.5); Lymphocyte % 8.4 % (19-41); Mean Corp Hgb Conc 33.3 g/dL (32-36); Mean Corpuscular Hgb 37.6 pg (27.0-32.0); Mean Corpuscular Volume 112.7 fL (80-94); Monocyte# 0.82 X10^3/uL; Monocyte% 9.8 % (0-10); NRBC Flagged by Analyzer 0 % (0-5); Neutrophil # 6.57 X10^3/uL (2.7-7.7); Neutrophil % 78.3 % (47-70); Platelet Count 284 K/mm3 (150-450); RBC Distribution Width CV 15.1 % (11.6-14.6); RBC Distribution Width SD 63.3 fl (35.1-43.9); Red Blood Count 3.62 M/mm3 (4.6-6.2); White Blood Count 8.4 K/mm3 (4.4-11.0)
== END | disposition home or self-care (01) ==
LOC: MFPLAB 11:26
PROVIDERS: PCP Family Medicine; Visit Provider Family Medicine
DX: R19.5 Other fecal abnormalities (principal)
CPT/HCPCS: 36415; 85025

== ENCOUNTER → 2024-08-17 | Outpatient (CLI) | payer MEDICARE, OTHER, SELFPAY ==
--- NOTE | 2024-08-17 11:46 | RAD_ITS ---
EXAM: XR SINUSES/PARANASAL COMPLETE, 3 OR MORE VIEWS CLINICAL INDICATION: sinus pain TECHNIQUE: Frontal, lateral and Lopez views of the sinuses and paranasal structures. COMPARISON: No relevant prior studies available. FINDINGS: BONES/JOINTS: Unremarkable. The regional bones are grossly intact. SINUSES: Unremarkable. No significant mucosal thickening. There are no air-fluid levels. RAD/Sinuses min 3 Views IMPRESSION: Negative sinus series. Electronically Signed: Ted Forbes MD at 23:55 EST ,
[2024-08-17 15:10] LABS: Absolute Lymphocyte Count 0.68 X10^3/uL (0.83-4.51); Absolute Neutrophil Count 8.1 X10^3/uL (2.0-7.7); Basophil# 0.06 X10^3/uL; Basophil% 0.6 % (0-1); Eosinophil# 0.25 X10^3/uL; Eosinophils% 2.6 % (0-5); Hematocrit 39.6 % (40-54); Lymphocyte # 0.68 X10^3/ul (0.83-4.51); Lymphocyte % 6.9 % (19-41); Mean Corp Hgb Conc 32.8 g/dL (32-36); Mean Corpuscular Hgb 35.8 pg (27.0-32.0); Mean Corpuscular Volume 109.1 fL (80-94); Mean Platelet Vol. 10.3 fl (6.2-12.0); Monocyte# 0.67 X10^3/uL; Monocyte% 6.8 % (0-10); NRBC Flagged by Analyzer 0 % (0-5); Neutrophil # 8.05 X10^3/uL (2.7-7.7); Neutrophil % 82.3 % (47-70); Platelet Count 234 K/mm3 (150-450); RBC Distribution Width CV 13.9 % (11.6-14.6); RBC Distribution Width SD 56.7 fl (35.1-43.9); Red Blood Count 3.63 M/mm3 (4.6-6.2); White Blood Count 9.8 K/mm3 (4.4-11.0)
[2024-08-17 15:52] LABS: ALB/GLOB Ratio 0.9 RATIO (0.9-2.4); AST(SGOT) 21 U/L (15-37); Alanine Aminotransfer ALT/SGPT 31 U/L (16-61); Albumin, Serum 3.6 g/dL (3.2-5.0); Alkaline Phosphatase 68 U/L (45-117); Anion Gap 7 (5-15); BUN 66 mg/dL (7-18); BUN/Creat Ratio 15.5 RATIO (10-20); Calcium,Total 9.4 mg/dL (8.5-10.1); Chloride 108 mmol/L (98-107); Creatinine, Serum 4.26 mg/dL (0.70-1.30); EST Glomerular Filtration Rate 14 mL/min (>60); Est Glom Filt Rate - Afr Amer 17 mL/min (>60); Ferritin 246 ng/mL (26-388); Globulin 4.1 g/dL (2.2-4.2); Glucose 100 mg/dL (74-106); PSA,Total- Diagnostic 0.55 ng/mL (0.0-4.0); Potassium 4.8 mmol/L (3.5-5.1); Protein, Total 7.7 g/dL (6.4-8.2); Sodium Level 135 mmol/L (136-145)
[2024-08-17 16:03] LABS: Erythrocyte Sedimentation Rate 24 mm/hr (0-20)
== END | disposition home or self-care (01) ==
LOC: MTLAB 11:43
PROVIDERS: PCP Family Medicine; Referring Provider Family Medicine; Visit Provider Family Medicine
DX: N41.9 Inflammatory disease of prostate, unspecified (principal); R53.83 Other fatigue; N18.9 Chronic kidney disease, unspecified; R19.5 Other fecal abnormalities; J34.89 Other specified disorders of nose and nasal sinuses
CPT/HCPCS: 36415; 70220; 80053; 82728; 84153; 85025; 85652; 87493

== ENCOUNTER → 2024-08-28 | Outpatient (CLI) | payer MEDICARE, OTHER, SELFPAY ==
[2024-08-28 13:23] LABS: ALB/GLOB Ratio 0.8 RATIO (0.9-2.4); AST(SGOT) 19 U/L (15-37); Alanine Aminotransfer ALT/SGPT 25 U/L (16-61); Albumin, Serum 3.3 g/dL (3.2-5.0); Alkaline Phosphatase 60 U/L (45-117); Anion Gap 6 (5-15); BUN 47 mg/dL (7-18); BUN/Creat Ratio 14.8 RATIO (10-20); Calcium,Total 8.6 mg/dL (8.5-10.1); Chloride 110 mmol/L (98-107); Creatinine, Serum 3.18 mg/dL (0.70-1.30); EST Glomerular Filtration Rate 20 mL/min (>60); Est Glom Filt Rate - Afr Amer 24 mL/min (>60); Globulin 4.1 g/dL (2.2-4.2); Glucose 86 mg/dL (74-106); Potassium 4.6 mmol/L (3.5-5.1); Protein, Total 7.4 g/dL (6.4-8.2); Sodium Level 139 mmol/L (136-145)
== END | disposition home or self-care (01) ==
LOC: LAB 12:06
PROVIDERS: PCP Family Medicine; Referring Provider Nurse Practitioner Family; Visit Provider Nurse Practitioner Family
DX: N18.9 Chronic kidney disease, unspecified (principal)
CPT/HCPCS: 36415; 80053

== ENCOUNTER → 2024-08-30 | Outpatient (CLI) | payer MEDICARE, OTHER, SELFPAY ==
[2024-08-30 15:06] LABS: Absolute Lymphocyte Count 0.76 X10^3/uL (0.83-4.51); Absolute Neutrophil Count 7.8 X10^3/uL (2.0-7.7); Basophil# 0.07 X10^3/uL; Basophil% 0.7 % (0-1); Eosinophil# 0.26 X10^3/uL; Eosinophils% 2.7 % (0-5); Hematocrit 37.9 % (40-54); Hemoglobin 12.7 g/dL (13.0-16.5); Lymphocyte # 0.76 X10^3/ul (0.83-4.51); Lymphocyte % 7.9 % (19-41); Mean Corp Hgb Conc 33.5 g/dL (32-36); Mean Corpuscular Volume 110.5 fL (80-94); Mean Platelet Vol. 10.1 fl (6.2-12.0); Monocyte# 0.58 X10^3/uL; Monocyte% 6.1 % (0-10); NRBC Flagged by Analyzer 0 % (0-5); Neutrophil # 7.81 X10^3/uL (2.7-7.7); Neutrophil % 81.8 % (47-70); Platelet Count 221 K/mm3 (150-450); RBC Distribution Width CV 14.6 % (11.6-14.6); RBC Distribution Width SD 59.5 fl (35.1-43.9); Red Blood Count 3.43 M/mm3 (4.6-6.2); White Blood Count 9.6 K/mm3 (4.4-11.0)
[2024-08-30 15:49] LABS: Vitamin B12 769 pg/mL (211-911)
[2024-08-30 15:51] LABS: ALB/GLOB Ratio 0.9 RATIO (0.9-2.4); AST(SGOT) 18 U/L (15-37); Alanine Aminotransfer ALT/SGPT 24 U/L (16-61); Albumin, Serum 3.5 g/dL (3.2-5.0); Alkaline Phosphatase 62 U/L (45-117); Anion Gap 6 (5-15); BUN 49 mg/dL (7-18); BUN/Creat Ratio 14.7 RATIO (10-20); Calcium,Total 8.8 mg/dL (8.5-10.1); Chloride 110 mmol/L (98-107); Creatinine, Serum 3.33 mg/dL (0.70-1.30); EST Glomerular Filtration Rate 19 mL/min (>60); Est Glom Filt Rate - Afr Amer 23 mL/min (>60); Ferritin 197 ng/mL (26-388); Globulin 4.1 g/dL (2.2-4.2); Glucose 103 mg/dL (74-106); Iron 168 ug/dL (65-175); Iron Binding Capacity,Total 258 ug/dL (250-450); LDH 209 U/L (87-241); PERCENT IRON SATURATION 65.1 % (15.0-55.0); Potassium 4.8 mmol/L (3.5-5.1); Protein, Total 7.6 g/dL (6.4-8.2); Sodium Level 137 mmol/L (136-145)
[2024-09-03 16:09] LABS: Erythropoietin 11.5 mIU/mL (2.6-18.5)
== END | disposition home or self-care (01) ==
PROVIDERS: PCP Family Medicine; Visit Provider Internal Medicine Medical Oncology
DX: D50.9 Iron deficiency anemia, unspecified (principal); I47.20 Ventricular tachycardia, unspecified; N18.32 Chronic kidney disease, stage 3b; D63.1 Anemia in chronic kidney disease
CPT/HCPCS: 36415; 80053; 82607; 82668; 82728; 83540; 83550; 83615; 85025

== ENCOUNTER → 2024-09-21 | Outpatient (CLI) | payer MEDICARE, OTHER, SELFPAY ==
[2024-09-21 18:19] LABS: Anion Gap 12 (5-15); BUN 66 mg/dL (7-18); BUN/Creat Ratio 18.6 RATIO (10-20); Calcium,Total 8.8 mg/dL (8.5-10.1); Chloride 108 mmol/L (98-107); Creatinine, Serum 3.54 mg/dL (0.70-1.30); EST Glomerular Filtration Rate 18 mL/min (>60); Est Glom Filt Rate - Afr Amer 21 mL/min (>60); Free T3 1.3 pg/mL (2.18-3.98); Glucose 92 mg/dL (74-106); Potassium 4.7 mmol/L (3.5-5.1); Sodium Level 138 mmol/L (136-145); T4 Free Direct 1.79 ng/dL (0.76-1.46)
== END | disposition home or self-care (01) ==
LOC: MFPLAB 14:31
PROVIDERS: PCP Family Medicine; Referring Provider Family Medicine; Visit Provider Family Medicine
DX: I50.30 Unspecified diastolic (congestive) heart failure (principal)
CPT/HCPCS: 36415; 80048; 84439; 84443; 84481

== ENCOUNTER → 2024-10-10 | Outpatient (CLI) | payer MEDICARE, OTHER, SELFPAY | END | disposition home or self-care (01) | LOC: PSN 07:37 | PROVIDERS: PCP Family Medicine; Referring Provider Family Medicine; Visit Provider Family Medicine | DX: R06.09 Other forms of dyspnea (principal) | CPT/HCPCS: 94060; 94726; 94729 ==

== ENCOUNTER 2024-10-29 12:48 | Outpatient (RCR) | payer MEDICARE, OTHER, SELFPAY | END 2024-11-26 23:59 | LOC: NS 12:48 | PROVIDERS: PCP Family Medicine; Referring Provider Family Medicine; Visit Provider Family Medicine | DX: N18.32 Chronic kidney disease, stage 3b (principal); I50.30 Unspecified diastolic (congestive) heart failure; Z71.3 Dietary counseling and surveillance | CPT/HCPCS: 97803 ==

== ENCOUNTER → 2024-11-27 | Outpatient (CLI) | payer MEDICARE, OTHER, SELFPAY ==
[2024-11-27 21:21] LABS: Anion Gap 12 (5-15); BUN 42 mg/dL (4-19); BUN/Creat Ratio 15.2 RATIO (10-20); Calcium,Total 8.6 mg/dL (7.6-11.0); Carbon Dioxide 21.1 mmol/L (21.0-32.0); Chloride 107 mmol/L (98-108); Creatinine, Serum 2.76 mg/dL (0.70-1.20); EST Glomerular Filtration Rate 22 (>60); Glucose 116 mg/dL (70-99); Potassium 4.6 mmol/L (3.3-5.1); Sodium Level 141 mmol/L (133-145)
[2024-11-27 21:37] LABS: Protein, Urine (Random) 13.7 mg/dL (0.0-12.0); Protein:Creat Ratio 208 mg/g CRE (0-200)
== END | disposition home or self-care (01) ==
LOC: MTLAB 15:47
PROVIDERS: PCP Family Medicine; Referring Provider Internal Medicine Nephrology; Visit Provider Internal Medicine Nephrology
DX: N18.32 Chronic kidney disease, stage 3b (principal)
CPT/HCPCS: 36415; 80048; 82570; 84156

== ENCOUNTER 2024-12-04 07:21 | Inpatient (IN) | payer MEDICARE, OTHER, SELFPAY ==
[2024-12-04] VITALS (9 sets, daily range): BP systolic 109–139; BP diastolic 72–98; PULSE 75–95; RESP 16–20; TEMP 35.7–36.6; O2SAT 89–100; BMI 19.5; BMI 18.6
--- NOTE | 2024-12-04 07:37 | ED.VIS.GI ---
HPI HPI - GI History of Present Illness Chief Complaint: GI Bleed Detail of Chief Complaint: Rectal bleeding Informant: patient Narrative Narrative: Patient presents to the emergency department complaint of rectal bleeding that started this morning. He felt like he needed to have a bowel movement and passed bright red blood per rectum. Complains of some pressure in his rectum. He does have remote history of hemorrhoids. Denies abdominal pain. He said no vomiting. He is not vomiting blood. He denies fever. PFSH PFS Medical History History of atrial fibrillation COPD (chronic obstructive pulmonary disease) with emphysema CHF (congestive heart failure) Hypoxia Chronic kidney disease Chronic anticoagulation Acute dyspnea Acute kidney injury Hypotension Abnormal abdominal ultrasound Persistent atrial fibrillation Hearing loss, left Hearing loss, right Anxiety Chronic pain Rheumatoid arthritis COPD (chronic obstructive pulmonary disease) Irregular heart beat Hypertension Hypothyroidism Hiatal hernia Acute constipation Acute exacerbation of chronic low back pain Wears glasses Thyroid disease Ambulates with cane Arthritis History of renal disease Anemia High cholesterol Easy bruising Excessive bleeding History of leukemia Back pain Difficulty chewing History of diverticulitis Gastric reflux Sleep apnea History of pain when walking History of edema History of echocardiogram History of stress test Cardiology follow-up encounter History of heart attack Nausea and vomiting Chronic anemia Diarrhea Colitis Sleep apnea Acute kidney injury superimposed on chronic kidney disease On amiodarone therapy Elevated LFTs Thoracic aortic aneurysm (TAA) Chronic heart failure with preserved ejection fraction (HFpEF) Nonrheumatic mitral (valve) insufficiency Atypical atrial flutter (12/2020) Elevated liver enzymes Debility Dysphagia Osteoarthritis History of colon polyps Cancer Kidney stones Kidney disease Non-smoker CPAP (continuous positive airway pressure) dependence Atrial fibrillation Myocardial infarct Chronic renal insufficiency Acute gastrointestinal bleeding Chronic kidney disease Benign prostatic hyperplasia Stage 3b chronic kidney disease GI bleed (2012) Non-rheumatic tricuspid valve insufficiency Secondary pulmonary arterial hypertension Essential (primary) hypertension BPH (benign prostatic hyperplasia) History of hyperthyroidism Paroxysmal atrial fibrillation 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 HLD (hyperlipidemia) Home Medications ?Medication ?Instructions ?Recorded ?Last Taken ?Type tamsulosin 0.4 mg capsule 0.4 mg PO BID PROSTATE 11/18/21 03/19/24 History vitamin B complex 1 cap PO BID SUPPLEMENT 05/01/22 03/19/24 History ascorbic acid (vitamin C) 500 mg 500 mg PO BID SUPPLEMENT 07/20/22 03/19/24 History tablet finasteride 5 mg tablet 5 mg PO DAILY PROSTATE 08/05/22 03/19/24 History cholecalciferol (vitamin D3) 25 1,000 unit PO QHS SUPPLEMENT 02/19/23 03/19/24 History mcg (1,000 unit) capsule (Vitamin D3) empagliflozin 10 mg tablet 10 mg PO DAILY DIABTETES #0 tabs 07/22/23 03/19/24 Rx (Jardiance) isosorbide mononitrate 30 mg 30 mg PO DAILY CHEST PAIN 02/28/24 03/19/24 History tablet,extended release 24 hr magnesium chloride 64 mg 64 mg PO BID SUPPLEMENT 02/28/24 03/19/24 History (magnesium chloride) tablet,delayed release (Mag 64) trazodone 50 mg tablet 25 mg PO QHS INSOMNIA 02/28/24 03/19/24 History amiodarone 100 mg tablet 100 mg PO BID HEART #180 tabs 02/29/24 03/19/24 Rx ferrous sulfate 325 mg (65 mg 325 mg PO QHS ANEMIA 03/20/24 03/19/24 History iron) tablet (Feosol) levothyroxine 50 mcg tablet 50 mcg PO DAILY THYROID 03/20/24 03/19/24 History apixaban 2.5 mg tablet (Eliquis) 2.5 mg PO BID Anticoagulant #60 03/24/24 Unknown Rx tabs diltiazem HCl 120 mg 120 mg PO DAILY heart rate 30 days 04/25/24 Unknown Rx capsule,extended release 24 hr #30 caps furosemide 20 mg tablet 20 mg PO BID 08/28/24 Unknown History nitroglycerin 0.4 mg sublingual 0.4 mg sublingual Q5M PRN 08/28/24 Unknown Rx tablet Cardiac/Chest Pain #25 tabs pantoprazole 20 mg tablet,delayed 20 mg PO DAILY 08/28/24 Unknown History release potassium chloride 20 mEq 20 meq PO BID supplement 08/28/24 Unknown History tablet,extended release(part/cryst) acetaminophen 500 mg tablet 500 mg PO TID PRN pain 12/04/24 Unknown History (Acetaminophen Extra Strength) albuterol sulfate 2.5 mg/0.5 mL 2.5 mg inhalation Q6H PRN pain 12/04/24 Unknown History solution for nebulization baclofen 10 mg tablet 5 mg PO TID PRN muscle pain 12/04/24 Unknown History calcium carbonate (Antacid 400 mg PO Q6H 12/04/24 Unknown History (calcium carbonate)) calcium citrate 200 mg PO BID SUPPLEMENT 12/04/24 Unknown History clonidine HCl 0.1 mg tablet 0.05 - 0.1 mg PO DAILY PRN BP 12/04/24 Unknown History famotidine 20 mg tablet 20 mg PO BID 12/04/24 Unknown History hydralazine 50 mg tablet 50 mg PO 4X/DAY 12/04/24 Unknown History hydromorphone 2 mg tablet 1 - 2 mg PO QHS CHEST PAIN 12/04/24 Unknown History lidocaine 5 % topical patch 1 patch topical Q24H 12/04/24 Unknown History (DermacinRx Lidocan) loratadine 10 mg tablet 10 mg PO DAILY allergies 12/04/24 Unknown History (Allerclear) lorazepam 0.5 mg tablet 0.5 mg PO Q4H 12/04/24 Unknown History meclizine 12.5 mg tablet 12.5 mg PO Q8H PRN dizziness 12/04/24 Unknown History ondansetron 4 mg disintegrating 4 mg PO Q4H PRN nausea 12/04/24 Unknown History tablet simethicone 125 mg capsule (Gas 125 mg PO TIDCM 12/04/24 Unknown History Relief (simethicone)) zoledronic acid 5 mg/100 mL in 1 ea IV .COMPLEX 12/04/24 Unknown History mannitol 5 %-water intravenous piggybck (Reclast) Allergy/AdvReac Type Severity Reaction Status Date / Time diclofenac Allergy rash Verified 12/04/24 07:22 prednisone Allergy Rash Verified 12/04/24 07:22 Family History Father Cancer Prostate cancer Mother Hypertension Sister Hypertension Surgical History History of colonoscopy (03/26/24) History of back surgery History of cardiac catheterization History of esophagogastroduodenoscopy (EGD) History of cardioversion (06/18/19) History of radiofrequency ablation procedure for cardiac arrhythmia (11/11/11) History of electrophysiologic study (08/08/00) History of left heart catheterization (07/17/12) History of hemorrhoidectomy History of Zenaida fundoplication History of coronary artery stent placement (08/04/00) History of hernia repair History of back surgery Social History household members: none Smoking Status: Never smoker alcohol intake: never substance use type: does not use caffeine: No ROS ROS ED Review of Systems ROS Unobtainable: other Constitutional Constitutional ED: Reports lethargy; Denies chills, fever(s), sweats or weight loss Eyes Eyes: Denies blurry vision, change in vision or diplopia ENT ENT ED: Denies rhinorrhea or sore throat Cardiovascular Cardiovascular: Denies chest pain, orthopnea or racing heartbeat Respiratory/Chest Respiratory/Chest: Reports cough, dyspnea and dyspnea on exertion; Denies orthopnea or sputum Gastrointestinal Gastrointestinal: Reports other Details: Bright red blood per rectum ; Denies abdominal pain, diarrhea, nausea or vomiting Genitourinary Genitourinary ED: Denies dysuria, hematuria or urinary frequency Musculoskeletal Musculoskeletal: Denies arthralgias, back pain, myalgias or neck pain Integumentary Denies abscess, Abrasions or rash Neurologic Neurologic: Denies headache(s) or weakness Psychiatric Psychiatric: Denies anxiety, depression or suicidal thoughts Endocrine Endocrinology: Denies polydipsia, polyphagia or polyuria Hematologic/Lymphatic Hematologic/Lymphatic: Denies easy bleeding, easy bruising or lymphadenopathy Allergic/Immunologic Allergic/Immunologic ED: Denies mouth swelling, tongue swelling or urticaria EXAM Physical Exam Const Vital Signs: 12/04/24 07:22 12/04/24 08:12 12/04/24 08:26 Temperature 96.3 F L Temperature Source Axillary Pulse Rate 85 Respiratory Rate 16 Blood Pressure 139/93 H Blood Pressure Mean 108 Pulse Ox 97 89 98 Oxygen Delivery Method Room Air Room Air Nasal Cannula Oxygen Flow Rate (L/min) 2 Positive well nourished and well developed General Appearance ED: well developed and NAD HEENT Reports TM's clear and moist mucous membranes normocephalic and atraumatic; Negative for trauma or tenderness Tympanic Membrane ED: Yes TM's clear Eyes PERRL and EOMs intact bilaterally General Eye ED: Negative for pale conjunctiva or scleral icterus Neck no lymphadenopathy, supple and no JVD General: Negative for tenderness Chest Wall inspection of chest normal and palpation of chest normal Chest: Negative for tenderness Resp normal respiratory effort and clear to auscultation bilaterally Effort and Inspection: Negative for respiratory distress or pain with movement Auscultation: Negative for rhonchi, wheezes or diminished lung sounds Cardio regular rate, regular rhythm, S1 normal heart sound, S2 normal heart sound and no murmurs Peripheral Pulses: pulses 2+ throughout GI normal to inspection, nondistended, normoactive bowel sounds, soft to palpation, non-tender, non-distended and no masses GI Narrative: Rectal exam performed-no hemorrhoids noted and no fissures noted. There was maroon-colored stool. Back/Spine no CVA tenderness and no thoracic nor lumbar tenderness Extremity normal to inspection General Extremety ED: Negative for edema General Extremity: Negative for edema Neuro oriented x3, CN's II-XII intact bilaterally, no sensory deficits noted and gait normal Sensorium / Orientation: awake, alert, oriented to person, oriented to place and oriented to time Motor Exam: strength 5/5 throughout and strength abnormal Psych mental status grossly normal Skin no rashes or lesions noted and no wounds MDM MDM MDM Narrative Medical decision making narrative: Patient presents with rectal bleeding this morning. Patient is on Eliquis for history of A-fib. He has history of chronic kidney disease. 2 large-bore IVs ordered. He was ordered normal saline and basic blood work as well as a type and screen and a lactate. CBC with differential white count 9.0 with a low 14.4 and platelet count of 261. Chemistries unremarkable. BUN was 42 and creatinine 2.94. Will discuss case with heel finisher and hospitalist to evaluate patient for admission. Being that he is on Eliquis will require at least an observation.. Patient does have history of diverticulitis. He is not having hematemesis or upper abdomen pain. Suspect likely lower GI bleed. Lab Data Attestation: I reviewed the patient's lab results. Labs: Laboratory Results - last 24 hr 12/04/24 07:39 WBC 9.0 RBC 3.77 L Hgb 14.4 Hct 42.3 MCV 112.2 H MCH 38.2 H MCHC 34.0 RDW Std Deviation 64.6 H RDW Coeff of Pablo 15.3 H Plt Count 261 MPV 9.8 Immature Gran % (Auto) 0.800 Neut % (Auto) 81.0 H Lymph % (Auto) 9.4 L [place] % (Auto) 6.5 Eos % (Auto) 1.9 Baso % (Auto) 0.4 Absolute Neuts (auto) 7.3 Absolute Lymphs (auto) 0.84 Nucleated RBC % 0 Sodium 140 Potassium 4.4 Chloride 102 Carbon Dioxide 24.4 Anion Gap 14 BUN 42 H Creatinine 2.94 H Estim Creat Clear Calc 15.73 L Est GFR (MDRD) Non-Af 20 L BUN/Creatinine Ratio 14.3 Glucose 104 H Calcium 9.1 Blood Type B POSITIVE Radiography Diagnostic Testin view chest x-ray obtained interpreted by myself as chronic interstitial changes and evidence of COPD. No evidence of infiltrate or pneumothorax or vascular congestion. No significant effusions. Discharge Plan Dx/Rx/DC Orders Clinical Impression: Acute lower GI bleeding, Chronic kidney disease, History of atrial fibrillation Disposition Disposition: Acute Care [facility]
[2024-12-04] MEDS: 0.9% Normal Saline (500mL Bag) 500 ML 999 ML IV (07:50)
[2024-12-04] MEDS: 0.9% Normal Saline (1000mL) 1,000 ML 125 ML IV (07:50)
[2024-12-04 07:59] LABS: Absolute Lymphocyte Count 0.84 X10^3/uL (0.83-4.51); Absolute Neutrophil Count 7.3 X10^3/uL (2.0-7.7); Basophil# 0.04 X10^3/uL; Basophil% 0.4 % (0-1); Eosinophil# 0.17 X10^3/uL; Eosinophils% 1.9 % (0-5); Hematocrit 42.3 % (40-54); Hemoglobin 14.4 g/dL (13.0-16.5); Lymphocyte # 0.84 X10^3/ul (0.83-4.51); Lymphocyte % 9.4 % (19-41); Mean Corpuscular Hgb 38.2 pg (27.0-32.0); Mean Corpuscular Volume 112.2 fL (80-94); Mean Platelet Vol. 9.8 fl (6.2-12.0); Monocyte# 0.58 X10^3/uL; Monocyte% 6.5 % (0-10); NRBC Flagged by Analyzer 0 % (0-5); Neutrophil # 7.26 X10^3/uL (2.7-7.7); Platelet Count 261 K/mm3 (150-450); RBC Distribution Width CV 15.3 % (11.6-14.6); RBC Distribution Width SD 64.6 fl (35.1-43.9); Red Blood Count 3.77 M/mm3 (4.6-6.2)
[2024-12-04 08:28] LABS: Anion Gap 14 (5-15); BUN 42 mg/dL (4-19); BUN/Creat Ratio 14.3 RATIO (10-20); Calcium,Total 9.1 mg/dL (7.6-11.0); Carbon Dioxide 24.4 mmol/L (21.0-32.0); Chloride 102 mmol/L (98-108); Creatinine, Serum 2.94 mg/dL (0.70-1.20); EST Glomerular Filtration Rate 20 (>60); Estimated Creatinine Clearance 15.73 ml/min (50-250); Glucose 104 mg/dL (70-99); Potassium 4.4 mmol/L (3.3-5.1); Sodium Level 140 mmol/L (133-145)
--- NOTE | 2024-12-04 08:35 | RAD_ITS ---
PROCEDURE: CHEST 1 VIEW (PORTABLE) 12/04/2024 REASON FOR EXAM: DYSPNEA TECHNIQUE: Frontal view of the chest. COMPARISON: No relevant prior. FINDINGS: Heart: Mild cardiac enlargement. Great vessels: Aorta is atherosclerotic and tortuous. Mediastinum: No mediastinal widening or hilar adenopathy. Lungs: Mild prominence of the pulmonary interstitial markings suspected. Bones: Multilevel vertebral body augmentations. Other: Cardiac monitoring leads overlie the chest wall. RAD/Chest 1 View (Portable) IMPRESSION: 1. Mild prominence of the pulmonary interstitial markings. 2. Mild cardiac enlargement. 3. Status post multilevel vertebral body augmentations. Reading Location: [place] [id number]
[2024-12-04 08:51] LABS: Lactic Acid < 1.0 mmol/L (0.0-2.0)
--- NOTE | 2024-12-04 09:31 | PCM.HP.STD ---
HPI - General General Date of Admission: 12/04/24 Date of Service: 12/04/24 Chief Complaint: bright red blood per rectum HPI Narrative RICHIE HANSEN, is a 84-year-old male history of A-fib, COPD, CHF, CKD, ALVARADO, BPH, GERD, coronary artery disease, hypertension, anxiety who presented to [facility] ED 12/04/24 for rectal bleeding that started this a.m.? He had some pressure in his rectum and passed bright red blood.? In the ED patient's hemoglobin stable and vitally stable however he did have maroon stool on exam and given he is on Eliquis and reported a large amount of blood hospitalist contacted for admission and observation.? Patient evaluated at bedside, reports that he had been having normal bowel movements until this a.m. when he felt the pressure in his rectum he passed a large amount of bright red blood, has had more blood passed in the ED and is actively being changed during exam.? 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 Denies any fevers or chills, has been having shortness of breath over the past couple of months but is due to be fitted for a CPAP and follows with pulmonology.? Does take Eliquis with his last dose last night.? Denies any other new or acute complaints [facility] Medical History History of atrial fibrillation COPD (chronic obstructive pulmonary disease) with emphysema CHF (congestive heart failure) Hypoxia Chronic kidney disease Chronic anticoagulation Acute dyspnea Acute kidney injury Hypotension Abnormal abdominal ultrasound Persistent atrial fibrillation Hearing loss, left Hearing loss, right Anxiety Chronic pain Rheumatoid arthritis COPD (chronic obstructive pulmonary disease) Irregular heart beat Hypertension Hypothyroidism Hiatal hernia Acute constipation Acute exacerbation of chronic low back pain Wears glasses Thyroid disease Ambulates with cane Arthritis History of renal disease Anemia High cholesterol Easy bruising Excessive bleeding History of leukemia Back pain Difficulty chewing History of diverticulitis Gastric reflux Sleep apnea History of pain when walking History of edema History of echocardiogram History of stress test Cardiology follow-up encounter History of heart attack Nausea and vomiting Chronic anemia Diarrhea Colitis Sleep apnea Acute kidney injury superimposed on chronic kidney disease On amiodarone therapy Elevated LFTs Thoracic aortic aneurysm (TAA) Chronic heart failure with preserved ejection fraction (HFpEF) Nonrheumatic mitral (valve) insufficiency Atypical atrial flutter (12/2020) Elevated liver enzymes Debility Dysphagia Osteoarthritis History of colon polyps Cancer Kidney stones Kidney disease Non-smoker CPAP (continuous positive airway pressure) dependence Atrial fibrillation Myocardial infarct Chronic renal insufficiency Acute gastrointestinal bleeding Chronic kidney disease Benign prostatic hyperplasia Stage 3b chronic kidney disease GI bleed (2012) Non-rheumatic tricuspid valve insufficiency Secondary pulmonary arterial hypertension Essential (primary) hypertension BPH (benign prostatic hyperplasia) History of hyperthyroidism Paroxysmal atrial fibrillation 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 HLD (hyperlipidemia) Home Medications ?Medication ?Instructions ?Recorded ?Last Taken ?Type tamsulosin 0.4 mg capsule 0.4 mg PO BID PROSTATE 11/18/21 03/19/24 History vitamin B complex 1 cap PO BID SUPPLEMENT 05/01/22 03/19/24 History ascorbic acid (vitamin C) 500 mg 500 mg PO BID SUPPLEMENT 07/20/22 03/19/24 History tablet finasteride 5 mg tablet 5 mg PO DAILY PROSTATE 08/05/22 03/19/24 History cholecalciferol (vitamin D3) 25 1,000 unit PO QHS SUPPLEMENT 02/19/23 03/19/24 History mcg (1,000 unit) capsule (Vitamin D3) empagliflozin 10 mg tablet 10 mg PO DAILY DIABTETES #0 tabs 07/22/23 03/19/24 Rx (Jardiance) isosorbide mononitrate 30 mg 30 mg PO DAILY CHEST PAIN 02/28/24 03/19/24 History tablet,extended release 24 hr magnesium chloride 64 mg 64 mg PO BID SUPPLEMENT 02/28/24 03/19/24 History (magnesium chloride) tablet,delayed release (Mag 64) trazodone 50 mg tablet 25 mg PO QHS INSOMNIA 02/28/24 03/19/24 History amiodarone 100 mg tablet 100 mg PO BID HEART #180 tabs 02/29/24 03/19/24 Rx ferrous sulfate 325 mg (65 mg 325 mg PO QHS ANEMIA 03/20/24 03/19/24 History iron) tablet (Feosol) levothyroxine 50 mcg tablet 50 mcg PO DAILY THYROID 03/20/24 03/19/24 History apixaban 2.5 mg tablet (Eliquis) 2.5 mg PO BID Anticoagulant #60 07/27/24 Unknown Rx tabs diltiazem HCl 120 mg 120 mg PO DAILY heart rate 30 days 04/25/24 Unknown Rx capsule,extended release 24 hr #30 caps furosemide 20 mg tablet 20 mg PO BID 08/28/24 Unknown History nitroglycerin 0.4 mg sublingual 0.4 mg sublingual Q5M PRN 08/28/24 Unknown Rx tablet Cardiac/Chest Pain #25 tabs pantoprazole 20 mg tablet,delayed 20 mg PO DAILY 08/28/24 Unknown History release potassium chloride 20 mEq 20 meq PO BID supplement 08/28/24 Unknown History tablet,extended release(part/cryst) acetaminophen 500 mg tablet 500 mg PO TID PRN pain 12/04/24 Unknown History (Acetaminophen Extra Strength) albuterol sulfate 2.5 mg/0.5 mL 2.5 mg inhalation Q6H PRN pain 12/04/24 Unknown History solution for nebulization baclofen 10 mg tablet 5 mg PO TID PRN muscle pain 12/04/24 Unknown History calcium carbonate (Antacid 400 mg PO Q6H 12/04/24 Unknown History (calcium carbonate)) calcium citrate 200 mg PO BID SUPPLEMENT 12/04/24 Unknown History clonidine HCl 0.1 mg tablet 0.05 - 0.1 mg PO DAILY PRN BP 12/04/24 Unknown History famotidine 20 mg tablet 20 mg PO BID 12/04/24 Unknown History hydralazine 50 mg tablet 50 mg PO 4X/DAY 12/04/24 Unknown History hydromorphone 2 mg tablet 1 - 2 mg PO QHS CHEST PAIN 12/04/24 Unknown History lidocaine 5 % topical patch 1 patch topical Q24H 12/04/24 Unknown History (DermacinRx Lidocan) loratadine 10 mg tablet 10 mg PO DAILY allergies 12/04/24 Unknown History (Allerclear) lorazepam 0.5 mg tablet 0.5 mg PO Q4H 12/04/24 Unknown History meclizine 12.5 mg tablet 12.5 mg PO Q8H PRN dizziness 12/04/24 Unknown History ondansetron 4 mg disintegrating 4 mg PO Q4H PRN nausea 12/04/24 Unknown History tablet simethicone 125 mg capsule (Gas 125 mg PO TIDCM 12/04/24 Unknown History Relief (simethicone)) zoledronic acid 5 mg/100 mL in 1 ea IV .COMPLEX 12/04/24 Unknown History mannitol 5 %-water intravenous piggybck (Reclast) Allergy/AdvReac Type Severity Reaction Status Date / Time diclofenac Allergy rash Verified 12/04/24 07:22 prednisone Allergy Rash Verified 12/04/24 07:22 Family History Father Cancer Prostate cancer Mother Hypertension Sister Hypertension Surgical History History of colonoscopy (03/26/24) History of back surgery History of cardiac catheterization History of esophagogastroduodenoscopy (EGD) History of cardioversion (06/18/19) History of radiofrequency ablation procedure for cardiac arrhythmia (11/11/11) History of electrophysiologic study (08/08/00) History of left heart catheterization (07/17/12) History of hemorrhoidectomy History of Zenaida fundoplication History of coronary artery stent placement (08/04/00) History of hernia repair History of back surgery Social History household members: none Smoking Status: Never smoker alcohol intake: never substance use type: does not use caffeine: No ROS ROS Narrative General: Denies fever/chills HENT: Denies headache, 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, gets a dry throat EYES: Denies changes in vision Resp: Has had shortness of breath over couple of months, dry cough when his throat is dry Cardiac: Denies chest pain GI: Denies abdominal pain at present, did pass some red blood at home and in the ED, denies nausea/vomiting : Denies changes in urination Extremity: Denies swelling MSK: Denies weakness Neuro: Denies any numbness/tingling Heme: Denies any bleeding or bruising aside from rectal bleeding Skin: Denies rashes Psychiatric: No complaints voiced Vital Signs Vital Signs Vital Signs: 12/04/24 07:22 12/04/24 08:12 12/04/24 08:26 Temperature 96.3 F L Temperature Source Axillary Pulse Rate 85 Respiratory Rate 16 Blood Pressure 139/93 H Blood Pressure Mean 108 Pulse Ox 97 89 98 Oxygen Delivery Method Room Air Room Air Nasal Cannula Oxygen Flow Rate (L/min) 2 Weight Weight: 58.4 kg Body Mass Index (BMI) 19.5 Physical Exam Narrative General: Denies fever/chills HENT: Denies headache, 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, gets a dry throat EYES: Denies changes in vision Resp: Has had shortness of breath over couple of months, dry cough when his throat is dry Cardiac: Denies chest pain GI: Denies abdominal pain at present, did pass some red blood at home and in the ED, denies nausea/vomiting : Denies changes in urination Extremity: Denies swelling MSK: Denies weakness Neuro: Denies any numbness/tingling Heme: Denies any bleeding or bruising aside from rectal bleeding Skin: Denies rashes Psychiatric: No complaints voiced Results Lab / Micro Data 12/04/24 07:39 12/04/24 07:39 Labs: Laboratory Results - last 24 hr 12/04/24 07:39: WBC 9.0, RBC 3.77 L, Hgb 14.4, Hct 42.3, MCV 112.2 H, MCH 38.2 H, MCHC 34.0, RDW Std Deviation 64.6 H, RDW Coeff of Pablo 15.3 H, Plt Count 261, MPV 9.8, Immature Gran % (Auto) 0.800, Neut % (Auto) 81.0 H, Lymph % (Auto) 9.4 L, [place] % (Auto) 6.5, Eos % (Auto) 1.9, Baso % (Auto) 0.4, Absolute Neuts (auto) 7.3, Absolute Lymphs (auto) 0.84, Nucleated RBC % 0, Sodium 140, Potassium 4.4, Chloride 102, Carbon Dioxide 24.4, Anion Gap 14, BUN 42 H, Creatinine 2.94 H, Estim Creat Clear Calc 15.73 L, Est GFR (MDRD) Non-Af 20 L, BUN/Creatinine Ratio 14.3, Glucose 104 H, Calcium 9.1, Blood Type B POSITIVE, Antibody Screen NEGATIVE 12/04/24 07:40: Lactic Acid < 1.0 Imaging Radiology Impression Chest X-Ray 12/04/24 08:35 IMPRESSION: 1. Mild prominence of the pulmonary interstitial markings. 2. Mild cardiac enlargement. 3. Status post multilevel vertebral body augmentations. Reading Location: [facility] Assessment & Plan Assessment/Plan (1) Bright red blood per rectum: PLAN: Plan # Bright red blood per rectum - Patient reports bright red blood per rectum that started this morning without abdominal pain, did have more rectal bleeding in the ED - Discussed with Dr. Hodges, presently vitally stable and normal hemoglobin however given ongoing bleeding patient will benefit from observation with further determination on need for endoscopies pending clinical progress -okay for clear liquid diet for now - GI consult - Given patient's reports of some recent epigastric pain and his concern that he may have an ulcer fill is reasonable to place on IV PPI for now - Hold Eliquis, presently [id number] bleed so this is not been reversed - Trend H&H #Paroxysmal Atrial Fibrillation -Continue amiodarone - Holding Eliquis #Hypertension - Given concern for active GI bleed we will hold home antihypertensives at this point, patient remains hypertensive can begin to add them back or if bleeding resolves will resume # CKD stage IV -Appears to be at baseline -Avoid nephrotoxic agents -Daily BMPs #Chronic BPH with obstruction -Continue home medications #CAD -with previous stent placement for history #Hypothyroidism -Continue Synthroid #ALVARADO - Following with pulmonology, has not yet been started on home PAP therapy # Moderate pulmonary hypertension - Echo 03/21/2024 with PASP of 64, enlarged left atrium, EF of 53% with normal LV size #DVT ppx: SCDs Emy Willard MD Charges/Coding Visit Charges Inpatient E&M: 69327 Init Hosp L2
[2024-12-04 13:41] LABS: Hematocrit 31.8 % (40-54); Hemoglobin 10.6 g/dL (13.0-16.5)
[2024-12-04] MEDS: 0.9% Normal Saline (100mL Bag) 100 ML 15 ML IV (14:40)
[2024-12-04] MEDS: Pantoprazole Sodium 40 MG in 0.9% Normal Saline (100mL MB+) 100 ML 330 MG IV ×2 (14:40→21:53)
[2024-12-04] MEDS: 0.9% Saline Lock 10 ML Syringe IV (14:44)
[2024-12-04] MEDS: Finasteride 5 MG Tablet PO (14:48)
[2024-12-04] MEDS: Tamsulosin HCl 0.4 MG Capsule PO ×2 (14:49→21:42)
[2024-12-04] MEDS: Amiodarone 200 MG Tablet 100 MG PO ×2 (14:49→21:41)
[2024-12-04] MEDS: Loratadine 10 MG Tablet PO (14:50)
[2024-12-04 18:07] LABS: Hematocrit 30.7 % (40-54); Hemoglobin 10.3 g/dL (13.0-16.5); Mean Corp Hgb Conc 33.6 g/dL (32-36); Mean Corpuscular Hgb 38.6 pg (27.0-32.0); Mean Platelet Vol. 9.7 fl (6.2-12.0); Platelet Count 208 K/mm3 (150-450); RBC Distribution Width CV 15.3 % (11.6-14.6); RBC Distribution Width SD 64.7 fl (35.1-43.9); Red Blood Count 2.67 M/mm3 (4.6-6.2); White Blood Count 10.1 K/mm3 (4.4-11.0)
[2024-12-04 21:24] LABS: Hematocrit 29.5 % (40-54); Hemoglobin 10.1 g/dL (13.0-16.5); Mean Corp Hgb Conc 34.2 g/dL (32-36); Mean Corpuscular Hgb 39.1 pg (27.0-32.0); Mean Corpuscular Volume 114.3 fL (80-94); Mean Platelet Vol. 9.7 fl (6.2-12.0); Platelet Count 222 K/mm3 (150-450); RBC Distribution Width CV 15.2 % (11.6-14.6); RBC Distribution Width SD 64.2 fl (35.1-43.9); Red Blood Count 2.58 M/mm3 (4.6-6.2); White Blood Count 10.7 K/mm3 (4.4-11.0)
[2024-12-04] MEDS: traZODone 50 MG Tablet 25 MG PO (21:41)
--- NOTE | 2024-12-04 21:50 | NURSING ---
pt had 15 beat run vt. pt denies any complaints . vitals done. dr romano notified mag ordered
--- NOTE | 2024-12-04 22:00 | NURSING ---
pt had 15 beat run vt. Pt denies any complaints. vitals obtained. Dr romano notified mag ordered
[2024-12-04 22:57] LABS: Hematocrit 30.1 % (40-54); Hemoglobin 10.2 g/dL (13.0-16.5)
[2024-12-04 23:34] LABS: Magnesium 2.1 mg/dL (1.5-2.2)
[2024-12-05] VITALS (10 sets, daily range): BP systolic 98–120; BP diastolic 61–80; PULSE 48–102; RESP 16–18; TEMP 36.4–36.9; O2SAT 96–100
--- NOTE | 2024-12-05 01:54 | EKG12_ITS ---
Test Reason : CP/JAW PAIN Blood Pressure : */* mmHG Vent. Rate : 91 BPM Atrial Rate : * BPM P-R Int : * ms QRS Dur : 166 ms QT Int : 422 ms P-R-T Axes : * -9 -37 degrees QTcB Int : 519 ms Atrial fibrillation with premature ventricular or aberrantly conducted complexes Right bundle branch block T wave abnormality, consider inferior ischemia Abnormal ECG When compared with ECG of 01-May-2024 11:01, Atrial fibrillation has replaced Sinus rhythm Vent. rate has increased by 54 bpm T wave inversion now evident in Anterior leads T wave amplitude has increased in Lateral leads QT has lengthened Confirmed by MARCE KASPER, ADAM ([id number]), clinical editor CIPRIANO GATES ([id number]) on 12/06/2024 8:42:29 AM Referred By: RAPHAEL Confirmed By: ADAM ZHENG MD
--- NOTE | 2024-12-05 01:56 | NURSING ---
pt c/o bilat jaw pain, then w more discussion he stated he is also having cp, called for a stat ekg, vss
[2024-12-05 03:59] LABS: Absolute Lymphocyte Count 0.66 X10^3/uL (0.83-4.51); Absolute Neutrophil Count 8.9 X10^3/uL (2.0-7.7); Basophil# 0.05 X10^3/uL; Basophil% 0.5 % (0-1); Eosinophil# 0.11 X10^3/uL; Eosinophils% 1.1 % (0-5); Hematocrit 30.1 % (40-54); Hemoglobin 10.1 g/dL (13.0-16.5); Lymphocyte # 0.66 X10^3/ul (0.83-4.51); Lymphocyte % 6.4 % (19-41); Mean Corp Hgb Conc 33.6 g/dL (32-36); Mean Corpuscular Hgb 38.4 pg (27.0-32.0); Mean Corpuscular Volume 114.4 fL (80-94); Monocyte# 0.58 X10^3/uL; Monocyte% 5.6 % (0-10); NRBC Flagged by Analyzer 0 % (0-5); Neutrophil # 8.87 X10^3/uL (2.7-7.7); Neutrophil % 85.5 % (47-70); Platelet Count 214 K/mm3 (150-450); RBC Distribution Width CV 15.5 % (11.6-14.6); RBC Distribution Width SD 64.6 fl (35.1-43.9); Red Blood Count 2.63 M/mm3 (4.6-6.2); White Blood Count 10.4 K/mm3 (4.4-11.0)
[2024-12-05 04:03] LABS: International Normalized Ratio 1.4; Prothrombin Time (Protime)PT. 17.8 SECONDS (11.7-14.9)
[2024-12-05 04:20] LABS: Magnesium 2.2 mg/dL (1.5-2.2)
[2024-12-05 04:25] LABS: Troponin T High Sensitivity 110 ng/L (<=22)
[2024-12-05 04:26] LABS: Anion Gap 12 (5-15); BUN 39 mg/dL (4-19); BUN/Creat Ratio 15.2 RATIO (10-20); Calcium,Total 7.7 mg/dL (7.6-11.0); Carbon Dioxide 21.4 mmol/L (21.0-32.0); Chloride 107 mmol/L (98-108); Creatinine, Serum 2.54 mg/dL (0.70-1.20); EST Glomerular Filtration Rate 24 (>60); Estimated Creatinine Clearance 17.36 ml/min (50-250); Glucose 89 mg/dL (70-99); Potassium 3.6 mmol/L (3.3-5.1); Sodium Level 140 mmol/L (133-145)
--- NOTE | 2024-12-05 04:46 | NURSING ---
pt troponin back, 110, dr romano notified, his jaw discomfort is almost gone and he rates his cp maybe a 1/10, still in afib w bbb. will monitor and see what the next trop result is. unable to anticoagulate d/t the gi bleed.
[2024-12-05] MEDS: Levothyroxine 50 MCG Tablet PO (05:21)
[2024-12-05] MEDS: Nitroglycerin Oint 1 INCH PACKET TD (06:38)
[2024-12-05 06:46] LABS: Troponin T High Sens 2 HR 156 ng/L (<=22)
--- NOTE | 2024-12-05 07:02 | NURSING ---
pts second trop 156, dr wallace notified
--- NOTE | 2024-12-05 07:48 | PCM.CONS.C ---
Assessment & Plan Assessment/Plan (1) Persistent atrial fibrillation: PLAN: He does have persistent atrial fibrillation with a controlled ventricular response rate. The plan be for him to continue on the amiodarone and diltiazem at this time. His beta-asia was discontinued. His anticoagulation will be on hold at the moment due to the GI bleeding issues. (2) Acute on chronic heart failure with reduced ejection fraction and diastolic dysfunction: PLAN: He does have borderline ejection fraction estimated at 53%. His atrial size is dilated. At this time I would recommend that we continue to observe him and diurese him as appropriate. He does have evidence of renal insufficiency. (3) Pulmonary hypertension: PLAN: He does have evidence of moderate pulmonary hypertension. We will continue the current medical therapy at this time. (4) History of coronary artery stent placement: PLAN: He has known coronary artery disease status post previous angioplasty and stent placement in the LAD. He has not had any angina until this visit. At this time with his declining renal function I would recommend that we maximize his oral intake. I would suggest that we increase his isosorbide to 60 mg a day. (5) Essential (primary) hypertension: PLAN: Patient has a history of hypertension HPI Consult Data Date of Consult: 12/05/24 HPI Narrative HPI Narrative: RICHIE HANSEN, is a 84 M who presents to the emergency room with bright red blood per rectum and was admitted to the third floor. While he was there he had another motion and then he started developing chest discomfort. His EKG had demonstrated some changes which were concerning troponin was drawn which was noted to be elevated with an elevated creatinine and cardiology was called for further recommendations. He has a history of coronary artery disease with stenting to his LAD in July 2000, atrial fibrillation with pulmonary vein isolation in 2011 and outpatient cardioversion on 06/18/2019, hypertension and hyperlipidemia. You do remember that he did undergo radiofrequency ablation in 2011. He has undergone multiple echocardiograms in the past but most recent recently his echocardiogram from February 2024 demonstrated an ejection fraction of 53% pulm artery systolic pressure of 64 mmHg with moderate pulmonary hypertension. He has had repeated hospitalizations for rectal bleeding and has had his medications adjusted. He also saw the GI physician for the same. He had previously been on Coumadin but more recently has been on Eliquis. He does have underlying atrial fibrillation with a controlled ventricular response rate. He denies chest, arm, jaw, or neck discomfort. He states palpitations. He denies bilateral lower extremity edema. He denies claudication. He acknowledges shortness of breath with activity and orthopnea. He denies shortness of breath at rest or PND. He denies chronic cough. He denies significant, sudden weight gain. He denies lightheadedness, dizziness, near-syncope, or syncope. He denies blood in urine, blood in stool, or epistaxis. He denies fever with chills. He denies myalgia. He states fatigue. His exercise level has remained stable. FORMERLY [facility] Medical History History of atrial fibrillation COPD (chronic obstructive pulmonary disease) with emphysema CHF (congestive heart failure) Hypoxia Chronic kidney disease Chronic anticoagulation Acute dyspnea Acute kidney injury Hypotension Abnormal abdominal ultrasound Persistent atrial fibrillation Hearing loss, left Hearing loss, right Anxiety Chronic pain Rheumatoid arthritis COPD (chronic obstructive pulmonary disease) Irregular heart beat Hypertension Hypothyroidism Hiatal hernia Acute constipation Acute exacerbation of chronic low back pain Wears glasses Thyroid disease Ambulates with cane Arthritis History of renal disease Anemia High cholesterol Easy bruising Excessive bleeding History of leukemia Back pain Difficulty chewing History of diverticulitis Gastric reflux Sleep apnea History of pain when walking History of edema History of echocardiogram History of stress test Cardiology follow-up encounter History of heart attack Nausea and vomiting Chronic anemia Diarrhea Colitis Sleep apnea Acute kidney injury superimposed on chronic kidney disease On amiodarone therapy Elevated LFTs Thoracic aortic aneurysm (TAA) Chronic heart failure with preserved ejection fraction (HFpEF) Nonrheumatic mitral (valve) insufficiency Atypical atrial flutter (12/2020) Elevated liver enzymes Debility Dysphagia Osteoarthritis History of colon polyps Cancer Kidney stones Kidney disease Non-smoker CPAP (continuous positive airway pressure) dependence Atrial fibrillation Myocardial infarct Chronic renal insufficiency Acute gastrointestinal bleeding Chronic kidney disease Benign prostatic hyperplasia Stage 3b chronic kidney disease GI bleed (2012) Non-rheumatic tricuspid valve insufficiency Secondary pulmonary arterial hypertension Essential (primary) hypertension BPH (benign prostatic hyperplasia) History of hyperthyroidism Paroxysmal atrial fibrillation 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 heart disease of [place] coronary artery without angina pectoris HLD (hyperlipidemia) Home Medications ?Medication ?Instructions ?Recorded ?Last Taken ?Type tamsulosin 0.4 mg capsule 0.4 mg PO BID PROSTATE 11/18/21 12/03/24 History vitamin B complex 1 cap PO BID SUPPLEMENT 05/01/22 12/03/24 History ascorbic acid (vitamin C) 500 mg 500 mg PO BID SUPPLEMENT 07/20/22 12/03/24 History tablet finasteride 5 mg tablet 5 mg PO DAILY PROSTATE 08/05/22 12/03/24 History cholecalciferol (vitamin D3) 25 1,000 unit PO QHS SUPPLEMENT 02/19/23 12/03/24 History mcg (1,000 unit) capsule (Vitamin D3) empagliflozin 10 mg tablet 10 mg PO DAILY DIABTETES #0 tabs 07/22/23 12/03/24 Rx (Jardiance) isosorbide mononitrate 30 mg 30 mg PO DAILY CHEST PAIN 02/28/24 12/03/24 History tablet,extended release 24 hr magnesium chloride 64 mg 64 mg PO BID SUPPLEMENT 02/28/24 12/03/24 History (magnesium chloride) tablet,delayed release (Mag 64) trazodone 50 mg tablet 25 mg PO QHS INSOMNIA 02/28/24 12/03/24 History amiodarone 100 mg tablet 100 mg PO BID HEART #180 tabs 02/29/24 12/03/24 Rx ferrous sulfate 325 mg (65 mg 325 mg PO QHS ANEMIA 03/20/24 12/03/24 History iron) tablet (Feosol) levothyroxine 50 mcg tablet 50 mcg PO DAILY THYROID 03/20/24 12/03/24 History apixaban 2.5 mg tablet (Eliquis) 2.5 mg PO BID Anticoagulant #60 03/24/24 12/03/24 Rx tabs diltiazem HCl 120 mg 120 mg PO DAILY heart rate 30 days 04/25/24 12/03/24 Rx capsule,extended release 24 hr #30 caps furosemide 20 mg tablet 20 mg PO BID fluid overload 08/28/24 12/03/24 History nitroglycerin 0.4 mg sublingual 0.4 mg sublingual Q5M PRN 08/28/24 Unknown Rx tablet Cardiac/Chest Pain #25 tabs pantoprazole 20 mg tablet,delayed 20 mg PO DAILY Gerd 08/28/24 12/03/24 History release potassium chloride 20 mEq 20 meq PO BID supplement 08/28/24 12/03/24 History tablet,extended release(part/cryst) acetaminophen 500 mg tablet 500 mg PO TID PRN pain 12/04/24 12/03/24 History (Acetaminophen Extra Strength) albuterol sulfate 2.5 mg/0.5 mL 2.5 mg inhalation Q6H PRN pain 12/04/24 Unknown History solution for nebulization baclofen 10 mg tablet 5 mg PO TID PRN muscle pain 12/04/24 12/03/24 History calcium carbonate (Antacid 400 mg PO Q6H Gerd 12/04/24 12/03/24 History (calcium carbonate)) calcium citrate 200 mg PO BID SUPPLEMENT 12/04/24 12/03/24 History clonidine HCl 0.1 mg tablet 0.05 - 0.1 mg PO DAILY PRN BP 12/04/24 Unknown History famotidine 20 mg tablet 20 mg PO BID Cardiac stent 12/04/24 12/03/24 History hydralazine 50 mg tablet 50 mg PO 4X/DAY B/P 12/04/24 12/03/24 History hydromorphone 2 mg tablet 1 - 2 mg PO QHS CHEST PAIN 12/04/24 12/03/24 History lidocaine 5 % topical patch 1 patch topical Q24H Pain 12/04/24 12/03/24 History (DermacinRx Lidocan) loratadine 10 mg tablet 10 mg PO DAILY allergies 12/04/24 12/03/24 History (Allerclear) meclizine 12.5 mg tablet 12.5 mg PO Q8H PRN dizziness 12/04/24 Unknown History ondansetron 4 mg disintegrating 4 mg PO Q4H PRN nausea 12/04/24 Unknown History tablet simethicone 125 mg capsule (Gas 125 mg PO TIDCM Gerd 12/04/24 12/03/24 History Relief (simethicone)) zoledronic acid 5 mg/100 mL in 1 ea IV .COMPLEX Bone 12/04/24 Unknown History mannitol 5 %-water intravenous piggybck (Reclast) Allergy/AdvReac Type Severity Reaction Status Date / Time diclofenac Allergy rash Verified 12/04/24 07:22 prednisone Allergy Rash Verified 12/04/24 07:22 Family History Father Cancer Prostate cancer Mother Hypertension Sister Hypertension Surgical History History of colonoscopy (03/26/24) History of back surgery History of cardiac catheterization History of esophagogastroduodenoscopy (EGD) History of cardioversion (06/18/19) History of radiofrequency ablation procedure for cardiac arrhythmia (11/11/11) History of electrophysiologic study (08/08/00) History of left heart catheterization (07/17/12) History of hemorrhoidectomy History of Zenaida fundoplication History of coronary artery stent placement (08/04/00) History of hernia repair History of back surgery Social History household members: none Smoking Status: Never smoker alcohol intake: never substance use type: does not use caffeine: No ROS Constitutional Constitutional: Denies fever(s) or weight loss Eyes Eyes: Reports systems reviewed and no addt'l complaints, except as documented ENT HEENT: Reports systems reviewed and no addt'l complaints, except as documented Cardiovascular Cardiovascular: Denies chest pain at rest, chest pain with activity, dyspnea at rest, dyspnea on exertion, edema, palpitations or paroxysmal nocturnal dyspnea Respiratory/Chest Respiratory/Chest: Denies dyspnea on exertion, productive cough, shortness of breath at rest or shortness of breath with exertion Gastrointestinal Gastrointestinal: Reports hematochezia and rectal bleeding; Denies change in bowel habits, nausea, vomiting or weight changes Genitourinary Genitourinary: Denies difficulty urinating Musculoskeletal Musculoskeletal: Denies joint stiffness or muscle weakness Integumentary Integumentary: Denies lesions Neurologic Neurologic: Denies dizziness or syncope Psychiatric Psychiatric: Denies anxiety Endocrine Endocrinology: Denies excessive sweating or fatigue Hematologic/Lymphatic Hematologic/Lymphatic: Denies anemia Allergic/Immunologic Allergic/Immunologic: Denies seasonal rhinorrhea Risk Stratification Risk Stratification Applicable: Yes Age >/= 65: Yes >/= 3 CAD Risk Factors (HTN, HLD, DM, family hx of CAD, or current smoker): Yes Aspirin Use in the Past 7 Days: No Severe Angina (>/= episodes in 24 hours): No EKG ST Changes >/= 0.5mm: Yes Positive Cardiac Marker: Yes ALEX Risk Stratification Score: 4 ALEX % Risk: 20% Risk Objective Data Vital Signs: Vital Signs Temp Pulse Resp BP Pulse Ox O2 Del Method O2 Flow Rate 97.6 F L 81 16 112/77 100 Nasal Cannula 2 12/05/24 04:44 12/05/24 06:38 12/05/24 04:53 12/05/24 06:38 12/05/24 04:44 12/05/24 04:53 12/05/24 04:53 Oxygen Flow Rate (L/min) 2 Oxygen Delivery Method Nasal Cannula Weight: 122 lb 12.76 oz Body Mass Index (BMI) 18.6 Intake & Output: Intake and Output for Last 24 Hours 12/03/24 12/04/24 12/05/24 23:59 23:59 23:59 Intake Total 1710 / 1710 110 / 110 Balance 1710 / 1710 110 / 110 Lab / Micro Data 12/05/24 03:27 12/05/24 03:27 Labs: Laboratory Results - last 24 hr 12/04/24 07:39: WBC 9.0, RBC 3.77 L, Hgb 14.4, Hct 42.3, MCV 112.2 H, MCH 38.2 H, MCHC 34.0, RDW Std Deviation 64.6 H, RDW Coeff of Pablo 15.3 H, Plt Count 261, MPV 9.8, Immature Gran % (Auto) 0.800, Neut % (Auto) 81.0 H, Lymph % (Auto) 9.4 L, Hettinger % (Auto) 6.5, Eos % (Auto) 1.9, Baso % (Auto) 0.4, Absolute Neuts (auto) 7.3, Absolute Lymphs (auto) 0.84, Nucleated RBC % 0, Sodium 140, Potassium 4.4, Chloride 102, Carbon Dioxide 24.4, Anion Gap 14, BUN 42 H, Creatinine 2.94 H, Estim Creat Clear Calc 15.73 L, Est GFR (MDRD) Non-Af 20 L, BUN/Creatinine Ratio 14.3, Glucose 104 H, Calcium 9.1, Blood Type B POSITIVE, Antibody Screen NEGATIVE 12/04/24 07:40: Lactic Acid < 1.0 12/04/24 13:25: Hgb 10.6 L, Hct 31.8 L 12/04/24 17:35: WBC 10.1, RBC 2.67 L, Hgb 10.3 L, Hct 30.7 L, MCV 115.0 H, MCH 38.6 H, MCHC 33.6, RDW Std Deviation 64.7 H, RDW Coeff of Pablo 15.3 H, Plt Count 208, MPV 9.7 12/04/24 21:00: WBC 10.7, RBC 2.58 L, Hgb 10.1 L, Hct 29.5 L, MCV 114.3 H, MCH 39.1 H, MCHC 34.2, RDW Std Deviation 64.2 H, RDW Coeff of Pablo 15.2 H, Plt Count 222, MPV 9.7 12/04/24 22:45: Hgb 10.2 L, Hct 30.1 L, Magnesium 2.1 12/05/24 03:27: WBC 10.4, RBC 2.63 L, Hgb 10.1 L, Hct 30.1 L, MCV 114.4 H, MCH 38.4 H, MCHC 33.6, RDW Std Deviation 64.6 H, RDW Coeff of Pablo 15.5 H, Plt Count 214, MPV 10.0, Immature Gran % (Auto) 0.900, Neut % (Auto) 85.5 H, Lymph % (Auto) 6.4 L, Hettinger % (Auto) 5.6, Eos % (Auto) 1.1, Baso % (Auto) 0.5, Absolute Neuts (auto) 8.9 H, Absolute Lymphs (auto) 0.66 L, Nucleated RBC % 0, PT 17.8 H, INR 1.4, Sodium 140, Potassium 3.6, Chloride 107, Carbon Dioxide 21.4, Anion Gap 12, BUN 39 H, Creatinine 2.54 H, Estim Creat Clear Calc 17.36 L, Est GFR (MDRD) Non-Af 24 L, BUN/Creatinine Ratio 15.2, Glucose 89, Calcium 7.7, Magnesium 2.2, Troponin T High Sens 110 H*, TSH 1.830 12/05/24 05:09: Troponin T Hi Sens 2 Hr 156 H* Cardiology Labs/Tests 12/04/24 07:39: WBC 9.0, RBC 3.77 L, Hgb 14.4, Hct 42.3, MCV 112.2 H, MCH 38.2 H, MCHC 34.0, Plt Count 261, MPV 9.8, Immature Gran % (Auto) 0.800, Neut % (Auto) 81.0 H, Lymph % (Auto) 9.4 L, Hettinger % (Auto) 6.5, Eos % (Auto) 1.9, Baso % (Auto) 0.4, Absolute Neuts (auto) 7.3, Nucleated RBC % 0, Sodium 140, Potassium 4.4, Chloride 102, Carbon Dioxide 24.4, Anion Gap 14, BUN 42 H, Creatinine 2.94 H, Est GFR (MDRD) Non-Af 20 L, BUN/Creatinine Ratio 14.3, Glucose 104 H, Calcium 9.1 12/04/24 07:40: Lactic Acid < 1.0 12/04/24 13:25: Hgb 10.6 L, Hct 31.8 L 12/04/24 17:35: WBC 10.1, RBC 2.67 L, Hgb 10.3 L, Hct 30.7 L, MCV 115.0 H, MCH 38.6 H, MCHC 33.6, Plt Count 208, MPV 9.7 12/04/24 21:00: WBC 10.7, RBC 2.58 L, Hgb 10.1 L, Hct 29.5 L, MCV 114.3 H, MCH 39.1 H, MCHC 34.2, Plt Count 222, MPV 9.7 12/04/24 22:45: Hgb 10.2 L, Hct 30.1 L, Magnesium 2.1 12/05/24 03:27: WBC 10.4, RBC 2.63 L, Hgb 10.1 L, Hct 30.1 L, MCV 114.4 H, MCH 38.4 H, MCHC 33.6, Plt Count 214, MPV 10.0, Immature Gran % (Auto) 0.900, Neut % (Auto) 85.5 H, Lymph % (Auto) 6.4 L, Hettinger % (Auto) 5.6, Eos % (Auto) 1.1, Baso % (Auto) 0.5, Absolute Neuts (auto) 8.9 H, Nucleated RBC % 0, PT 17.8 H, INR 1.4, Sodium 140, Potassium 3.6, Chloride 107, Carbon Dioxide 21.4, Anion Gap 12, BUN 39 H, Creatinine 2.54 H, Est GFR (MDRD) Non-Af 24 L, BUN/Creatinine Ratio 15.2, Glucose 89, Calcium 7.7, Magnesium 2.2 Rhythm: EKG: ECHO: Stress Test: Cardiac Cath: PCI: CT Surgery: Holter monitor: EPS: PPM: CXR: Chest CT Scan: Radiography Diagnostic Testing: Radiology Impression Chest X-Ray 12/04/24 08:35 IMPRESSION: 1. Mild prominence of the pulmonary interstitial markings. 2. Mild cardiac enlargement. 3. Status post multilevel vertebral body augmentations. Reading Location: [place] [id number]
[2024-12-05 08:12] LABS: Troponin T High Sens 4 HR 272 ng/L (<=22)
--- NOTE | 2024-12-05 08:27 | EKG12_ITS ---
Test Reason : Blood Pressure : */* mmHG Vent. Rate : 98 BPM Atrial Rate : * BPM P-R Int : * ms QRS Dur : 158 ms QT Int : 422 ms P-R-T Axes : * 30 -25 degrees QTcB Int : 538 ms Atrial fibrillation with premature ventricular or aberrantly conducted complexes Right bundle branch block Abnormal ECG When compared with ECG of 05-Dec-2024 02:06, MANUAL COMPARISON REQUIRED DATA IS UNCONFIRMED Confirmed by MARCE KASPER, ADAM ([id number]), science editor CIPRIANO GATES ([id number]) on 12/05/2024 1:45:35 PM Referred By: ANGÉLICA Confirmed By: ADAM ZHENG MD
--- NOTE | 2024-12-05 08:40 | NURSING ---
Pt's sister, Olivia Dunn, was updated on pt and transfer to Progressive Care Unit. Carmen GARICA
--- NOTE | 2024-12-05 10:05 | CASEMGMT ---
RN CM Face to Face with patient for initial transition planning/care coordination assessment. RN CM introduced self and role at [facility]. Patient lying in bed, alert and oriented. Patient willing to participate in assessment and is able to answer all questions appropriately. Care providers, pharmacy, and demographics verified. Strata: 2 PCP: [facility] Specialists: Christiane, pulmonology; Analia, medicare sales representative; Friend, GI Preferred Pharmacy: [facility] Insurance: [employer] Prescription Benefit: yes Living Will/HPOA: yes, MIKE Durant LNOK: MIKE ward Living Arrangements: Patient lives alone in a single story home with 2 steps and railing to enter the home. Patient is independent at home. Transportation: self, sisterMIKE DME/HHC: Patient has shower chair, raised toilet, cane, walker, grab bars. Patient has been to [facility] in the past. Patient has had [facility] in the past. Patient wishes to discharge home, denies need for home health at this time. Patient states he has no further needs or concerns at this time. CM to follow for discharge planning needs that may arise. Disposition Plan: Patient to discharge home with family support and follow-up plans in place. [place] VALDEZ, RN, CM
[2024-12-05] MEDS: Isosorbide Mononitrate 60 MG Tablet PO (10:15)
[2024-12-05] MEDS: dilTIAZem CD 120 MG Capsule PO (10:15)
[2024-12-05] MEDS: Finasteride 5 MG Tablet PO (10:15)
[2024-12-05] MEDS: Amiodarone 200 MG Tablet 100 MG PO ×2 (10:16→20:58)
[2024-12-05] MEDS: Tamsulosin HCl 0.4 MG Capsule PO ×2 (10:16→20:57)
[2024-12-05] MEDS: Pantoprazole Sodium 40 MG in 0.9% Normal Saline (100mL MB+) 100 ML 330 MG IV ×2 (10:16→20:58)
[2024-12-05] MEDS: Electrolyte Solution/Peg's 4000 ML PO (17:43)
--- NOTE | 2024-12-05 19:44 | PN.HOSP_ITS ---
Reason for Visit Reason for Visit: Diagnoses Essential (primary) hypertension (12/04/24) Pulmonary hypertension, unspecified (12/04/24) Other persistent atrial fibrillation (12/04/24) Acute on chronic combined systolic (congestive) and diastolic (congestive) heart failure (12/04/24) Hemorrhage of anus and rectum (12/04/24) Presence of coronary angioplasty implant and graft (12/04/24) Subjective Subjective Patient had some chest discomfort overnight and had elevated troponin, when patient was evaluated he reported that sometimes when he uses the incentive spirometer and takes a big deep breath he will get a somewhat tight feeling and not doing it makes it better and the only thing that makes it worse is using incentive spirometer. No changes in his breathing, has continued to have some blood per rectum, not presently nauseous or vomiting, no significant abdominal pain Objective Data Objective Data Vital Signs: Vital Signs Temp Pulse Resp BP Pulse Ox O2 Del Method O2 Flow Rate 98.2 F 94 16 101/64 96 Room Air 2 12/05/24 13:18 12/05/24 15:00 12/05/24 13:18 12/05/24 13:18 12/05/24 13:18 12/05/24 13:18 12/05/24 08:30 Oxygen Flow Rate (L/min) 2 Oxygen Delivery Method Room Air Weight: 55.7 kg Body Mass Index (BMI) 18.6 Intake & Output: Intake and Output for Last 24 Hours 12/03/24 12/04/24 12/05/24 23:59 23:59 23:59 Intake Total 1710 / 1710 640 / 640 Balance 1710 / 1710 640 / 640 Lab / Micro Data 12/05/24 03:27 12/05/24 03:27 Labs: Laboratory Results - last 24 hr 12/04/24 21:00: WBC 10.7, RBC 2.58 L, Hgb 10.1 L, Hct 29.5 L, MCV 114.3 H, MCH 39.1 H, MCHC 34.2, RDW Std Deviation 64.2 H, RDW Coeff of Pablo 15.2 H, Plt Count 222, MPV 9.7 12/04/24 22:45: Hgb 10.2 L, Hct 30.1 L, Magnesium 2.1 12/05/24 03:27: WBC 10.4, RBC 2.63 L, Hgb 10.1 L, Hct 30.1 L, MCV 114.4 H, MCH 38.4 H, MCHC 33.6, RDW Std Deviation 64.6 H, RDW Coeff of Pablo 15.5 H, Plt Count 214, MPV 10.0, Immature Gran % (Auto) 0.900, Neut % (Auto) 85.5 H, Lymph % (Auto) 6.4 L, [place] % (Auto) 5.6, Eos % (Auto) 1.1, Baso % (Auto) 0.5, Absolute Neuts (auto) 8.9 H, Absolute Lymphs (auto) 0.66 L, Nucleated RBC % 0, PT 17.8 H, INR 1.4, Sodium 140, Potassium 3.6, Chloride 107, Carbon Dioxide 21.4, Anion Gap 12, BUN 39 H, Creatinine 2.54 H, Estim Creat Clear Calc 17.36 L, Est GFR (MDRD) Non-Af 24 L, BUN/Creatinine Ratio 15.2, Glucose 89, Calcium 7.7, Magnesium 2.2, Troponin T High Sens 110 H*, TSH 1.830 12/05/24 05:09: Troponin T Hi Sens 2 Hr 156 H* 12/05/24 07:34: Troponin T Hi Sens 4Hr 272 H* Physical Exam Narrative General: Alert, oriented, no apparent distress HEENT: Atraumatic,, history of cleft lip Eyes: Anicteric, normal conjunctiva, extraocular movements grossly intact Neck: Supple Respiratory: Clear to auscultation bilaterally, normal respiratory effort Cardiovascular: Irregularly irregular GI: Soft, nontender, nondistended Extremities: No edema Musculoskeletal: Moving all extremities Neuro: No overt focal neurological deficits Skin: No rashes appreciated Psych: Cooperative Assessment & Plan Assessment/Plan (1) Bright red blood per rectum: PLAN: Plan # Bright red blood per rectum - Patient reports bright red blood per rectum that started this morning without abdominal pain, did have more rectal bleeding in the ED - Discussed with Dr. Hodges, presently vitally stable and normal hemoglobin however given ongoing bleeding patient will benefit from observation with further determination on need for endoscopies pending clinical progress -okay for clear liquid diet for now - GI consult - Given patient's reports of some recent epigastric pain and his concern that he may have an ulcer fill is reasonable to place on IV PPI for now - Hold Eliquis, presently [id number] bleed so this is not been reversed - Trend H&H -12/05: Hemoglobin remained fairly stable but patient has had more episodes of blood per rectum, GI consulted, continue to monitor # Elevated troponin -12/05: Overnight patient complained of some chest discomfort so troponin obtained with the first 1 being 110, second at 156, and third 272. Cardiology contacted, it was recommended to continue amiodarone and to optimize patient's other medications, diltiazem restarted, Imdur restarted at a higher dose than previously. Patient unlikely to clear troponins easily due to his stage IV CKD at the time of my evaluation patient reported that he had a kind of tight feeling in left side of chest only when he took a big inspiration specifically with incentive spirometer and it was better when he did not do that, unclear significance of this but patient is hemodynamically stable and being monitored on telemetry, appreciate cardiology recommendations. Did discuss with GI regarding possible need to go back on anticoagulation but continued bleeding, GI consult #Atrial Fibrillation -Continue amiodarone - Holding Eliquis -12/05: Patient on amiodarone, Imdur increased, diltiazem restarted given he has remained hemodynamically stable Amio developed chest pain #Hypertension - Given concern for active GI bleed we will hold home antihypertensives at this point, patient remains hypertensive can begin to add them back or if bleeding resolves will resume -12/05: Continued on amiodarone, Imdur resumed and increased, diltiazem resumed given stability, has had some more blood per rectum however hemoglobin is stable # CKD stage IV -Appears to be at baseline -Avoid nephrotoxic agents -Daily BMPs -12/05: Creatinine 2.54 today, is down from previous, continue current measures Chronic medical problems and/or problems not being actively addressed during today's encounter: #Chronic BPH with obstruction -Continue home medications #CAD -with previous stent placement for history #Hypothyroidism -Continue Synthroid #ALVARADO - Following with pulmonology, has not yet been started on home PAP therapy # Moderate pulmonary hypertension - Echo 03/21/2024 with PASP of 64, enlarged left atrium, EF of 53% with normal LV size #DVT ppx: SCDs Emy Willard MD Charges/Coding Visit Charges Inpatient E&M: 85976 Subs Hosp L2
--- NOTE | 2024-12-05 20:25 | EX.PCM.CON.G ---
HPI Consult Data Date of Consult: 12/05/24 HPI Narrative Reason for Consultation: Lower GI bleed HPI Narrative: RICHIE HANSEN, is a 84 M who presented to the emergency room complaint of rectal bleeding that started this morning. He felt like he needed to have a bowel movement and passed bright red blood per rectum. He complains of some pressure in his rectum. He does have remote history of hemorrhoids. Denies abdominal pain. He said no vomiting. He is not vomiting blood. He denies fever. He has a history of coronary artery disease with stenting to his LAD in July 2000, atrial fibrillation with pulmonary vein isolation in 2011 and outpatient cardioversion on 06/18/2019, hypertension and hyperlipidemia. You do remember that he did undergo radiofrequency ablation in 2011. His heart catheterization in 2011 demonstrated a patent stent. Patient presented to [facility] in December 2020 for weakness. His EKG showed concern for third-degree heart block. He underwent echocardiogram on 01/21/2021 that showed an ejection fraction of 60%, severely enlarged left atrium, mildly enlarged right atrium, moderately severe mitral valve insufficiency, moderately severe tricuspid valve insufficiency, and mild aortic valve insufficiency. 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 [facility] Medical History History of atrial fibrillation COPD (chronic obstructive pulmonary disease) with emphysema CHF (congestive heart failure) Hypoxia Chronic kidney disease Chronic anticoagulation Acute dyspnea Acute kidney injury Hypotension Abnormal abdominal ultrasound Persistent atrial fibrillation Hearing loss, left Hearing loss, right Anxiety Chronic pain Rheumatoid arthritis COPD (chronic obstructive pulmonary disease) Irregular heart beat Hypertension Hypothyroidism Hiatal hernia Acute constipation Acute exacerbation of chronic low back pain Wears glasses Thyroid disease Ambulates with cane Arthritis History of renal disease Anemia High cholesterol Easy bruising Excessive bleeding History of leukemia Back pain Difficulty chewing History of diverticulitis Gastric reflux Sleep apnea History of pain when walking History of edema History of echocardiogram History of stress test Cardiology follow-up encounter History of heart attack Nausea and vomiting Chronic anemia Diarrhea Colitis Sleep apnea Acute kidney injury superimposed on chronic kidney disease On amiodarone therapy Elevated LFTs Thoracic aortic aneurysm (TAA) Chronic heart failure with preserved ejection fraction (HFpEF) Nonrheumatic mitral (valve) insufficiency Atypical atrial flutter (12/2020) Elevated liver enzymes Debility Dysphagia Osteoarthritis History of colon polyps Cancer Kidney stones Kidney disease Non-smoker CPAP (continuous positive airway pressure) dependence Atrial fibrillation Myocardial infarct Chronic renal insufficiency Acute gastrointestinal bleeding Chronic kidney disease Benign prostatic hyperplasia Stage 3b chronic kidney disease GI bleed (2012) Non-rheumatic tricuspid valve insufficiency Secondary pulmonary arterial hypertension Essential (primary) hypertension BPH (benign prostatic hyperplasia) History of hyperthyroidism Paroxysmal atrial fibrillation 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 heart disease of [place] coronary artery without angina pectoris HLD (hyperlipidemia) Home Medications ?Medication ?Instructions ?Recorded ?Last Taken ?Type tamsulosin 0.4 mg capsule 0.4 mg PO BID PROSTATE 11/18/21 12/03/24 History vitamin B complex 1 cap PO BID SUPPLEMENT 05/01/22 12/03/24 History ascorbic acid (vitamin C) 500 mg 500 mg PO BID SUPPLEMENT 07/20/22 12/03/24 History tablet finasteride 5 mg tablet 5 mg PO DAILY PROSTATE 08/05/22 12/03/24 History cholecalciferol (vitamin D3) 25 1,000 unit PO QHS SUPPLEMENT 02/19/23 12/03/24 History mcg (1,000 unit) capsule (Vitamin D3) empagliflozin 10 mg tablet 10 mg PO DAILY DIABTETES #0 tabs 07/22/23 12/03/24 Rx (Jardiance) isosorbide mononitrate 30 mg 30 mg PO DAILY CHEST PAIN 02/28/24 12/03/24 History tablet,extended release 24 hr magnesium chloride 64 mg 64 mg PO BID SUPPLEMENT 02/28/24 12/03/24 History (magnesium chloride) tablet,delayed release (Mag 64) trazodone 50 mg tablet 25 mg PO QHS INSOMNIA 02/28/24 12/03/24 History amiodarone 100 mg tablet 100 mg PO BID HEART #180 tabs 02/29/24 12/03/24 Rx ferrous sulfate 325 mg (65 mg 325 mg PO QHS ANEMIA 03/20/24 12/03/24 History iron) tablet (Feosol) levothyroxine 50 mcg tablet 50 mcg PO DAILY THYROID 03/20/24 12/03/24 History apixaban 2.5 mg tablet (Eliquis) 2.5 mg PO BID Anticoagulant #60 03/24/24 12/03/24 Rx tabs diltiazem HCl 120 mg 120 mg PO DAILY heart rate 30 days 04/25/24 12/03/24 Rx capsule,extended release 24 hr #30 caps furosemide 20 mg tablet 20 mg PO BID fluid overload 08/28/24 12/03/24 History nitroglycerin 0.4 mg sublingual 0.4 mg sublingual Q5M PRN 08/28/24 Unknown Rx tablet Cardiac/Chest Pain #25 tabs pantoprazole 20 mg tablet,delayed 20 mg PO DAILY Gerd 08/28/24 12/03/24 History release potassium chloride 20 mEq 20 meq PO BID supplement 08/28/24 12/03/24 History tablet,extended release(part/cryst) acetaminophen 500 mg tablet 500 mg PO TID PRN pain 12/04/24 12/03/24 History (Acetaminophen Extra Strength) albuterol sulfate 2.5 mg/0.5 mL 2.5 mg inhalation Q6H PRN pain 12/04/24 Unknown History solution for nebulization baclofen 10 mg tablet 5 mg PO TID PRN muscle pain 12/04/24 12/03/24 History calcium carbonate (Antacid 400 mg PO Q6H Gerd 12/04/24 12/03/24 History (calcium carbonate)) calcium citrate 200 mg PO BID SUPPLEMENT 12/04/24 12/03/24 History clonidine HCl 0.1 mg tablet 0.05 - 0.1 mg PO DAILY PRN BP 12/04/24 Unknown History famotidine 20 mg tablet 20 mg PO BID Cardiac stent 12/04/24 12/03/24 History hydralazine 50 mg tablet 50 mg PO 4X/DAY B/P 12/04/24 12/03/24 History hydromorphone 2 mg tablet 1 - 2 mg PO QHS CHEST PAIN 12/04/24 12/03/24 History lidocaine 5 % topical patch 1 patch topical Q24H Pain 12/04/24 12/03/24 History (DermacinRx Lidocan) loratadine 10 mg tablet 10 mg PO DAILY allergies 12/04/24 12/03/24 History (Allerclear) meclizine 12.5 mg tablet 12.5 mg PO Q8H PRN dizziness 12/04/24 Unknown History ondansetron 4 mg disintegrating 4 mg PO Q4H PRN nausea 12/04/24 Unknown History tablet simethicone 125 mg capsule (Gas 125 mg PO TIDCM Gerd 12/04/24 12/03/24 History Relief (simethicone)) zoledronic acid 5 mg/100 mL in 1 ea IV .COMPLEX Bone 12/04/24 Unknown History mannitol 5 %-water intravenous piggybck (Reclast) Allergy/AdvReac Type Severity Reaction Status Date / Time diclofenac Allergy rash Verified 12/04/24 07:22 prednisone Allergy Rash Verified 12/04/24 07:22 Family History Father Cancer Prostate cancer Mother Hypertension Sister Hypertension Surgical History History of colonoscopy (03/26/24) History of back surgery History of cardiac catheterization History of esophagogastroduodenoscopy (EGD) History of cardioversion (06/18/19) History of radiofrequency ablation procedure for cardiac arrhythmia (11/11/11) History of electrophysiologic study (08/08/00) History of left heart catheterization (07/17/12) History of hemorrhoidectomy History of Zenaida fundoplication History of coronary artery stent placement (08/04/00) History of hernia repair History of back surgery Social History household members: none Smoking Status: Never smoker alcohol intake: never substance use type: does not use caffeine: No ROS Constitutional Constitutional: Denies fever(s) or weight loss Eyes Eyes: Reports systems reviewed and no addt'l complaints, except as documented ENT HEENT: Reports systems reviewed and no addt'l complaints, except as documented Cardiovascular Cardiovascular: Denies chest pain at rest, chest pain with activity, dyspnea at rest, dyspnea on exertion, edema, palpitations or paroxysmal nocturnal dyspnea Respiratory/Chest Respiratory/Chest: Denies dyspnea on exertion, productive cough, shortness of breath at rest or shortness of breath with exertion Gastrointestinal Gastrointestinal: Reports hematochezia and rectal bleeding; Denies change in bowel habits, nausea, vomiting or weight changes Genitourinary Genitourinary: Denies difficulty urinating Musculoskeletal Musculoskeletal: Denies joint stiffness or muscle weakness Integumentary Integumentary: Denies lesions Neurologic Neurologic: Denies dizziness or syncope Psychiatric Psychiatric: Denies anxiety Endocrine Endocrinology: Denies excessive sweating or fatigue Hematologic/Lymphatic Hematologic/Lymphatic: Denies anemia Allergic/Immunologic Allergic/Immunologic: Denies seasonal rhinorrhea Physical Exam Narrative General: Alert, oriented, no apparent distress HEENT: Atraumatic,, history of cleft lip Eyes: Anicteric, normal conjunctiva, extraocular movements grossly intact Neck: Supple Respiratory: Clear to auscultation bilaterally, normal respiratory effort Cardiovascular: Irregularly irregular GI: Soft, nontender, nondistended Extremities: No edema Musculoskeletal: Moving all extremities Neuro: No overt focal neurological deficits Skin: No rashes appreciated Psych: Cooperative Lab / Micro Data 12/05/24 03:27 12/05/24 03:27 Labs: Laboratory Results - last 24 hr 12/04/24 21:00: WBC 10.7, RBC 2.58 L, Hgb 10.1 L, Hct 29.5 L, MCV 114.3 H, MCH 39.1 H, MCHC 34.2, RDW Std Deviation 64.2 H, RDW Coeff of Pablo 15.2 H, Plt Count 222, MPV 9.7 12/04/24 22:45: Hgb 10.2 L, Hct 30.1 L, Magnesium 2.1 12/05/24 03:27: WBC 10.4, RBC 2.63 L, Hgb 10.1 L, Hct 30.1 L, MCV 114.4 H, MCH 38.4 H, MCHC 33.6, RDW Std Deviation 64.6 H, RDW Coeff of Pablo 15.5 H, Plt Count 214, MPV 10.0, Immature Gran % (Auto) 0.900, Neut % (Auto) 85.5 H, Lymph % (Auto) 6.4 L, [place] % (Auto) 5.6, Eos % (Auto) 1.1, Baso % (Auto) 0.5, Absolute Neuts (auto) 8.9 H, Absolute Lymphs (auto) 0.66 L, Nucleated RBC % 0, PT 17.8 H, INR 1.4, Sodium 140, Potassium 3.6, Chloride 107, Carbon Dioxide 21.4, Anion Gap 12, BUN 39 H, Creatinine 2.54 H, Estim Creat Clear Calc 17.36 L, Est GFR (MDRD) Non-Af 24 L, BUN/Creatinine Ratio 15.2, Glucose 89, Calcium 7.7, Magnesium 2.2, Troponin T High Sens 110 H*, TSH 1.830 12/05/24 05:09: Troponin T Hi Sens 2 Hr 156 H* 12/05/24 07:34: Troponin T Hi Sens 4Hr 272 H* Assessment & Plan Assessment/Plan (1) CHF (congestive heart failure): PLAN: Plan The patient is an 84 y/o M with multiple comorbidities presents back to the hospital with worsening lower GI bleeding with a history of upper GI bleeding and lower GI bleeding. He should undergo an upper endoscopy to evaluate his upper GI tract and lower GI tract for the etiology of his GI bleed and because he needs to have anticoagulation because of history of atrial fibrillation. He was explained alternatives, risk and benefits include not withstanding bleeding, infection, sepsis, perforation, need for emergent urgent . Have an ASA of 3. Charges/Coding Visit Charges Inpatient E&M: 23912 Init Hosp L3
[2024-12-05] MEDS: traZODone 50 MG Tablet 25 MG PO (20:58)
[2024-12-06] VITALS (11 sets, daily range): BP systolic 83–116; BP diastolic 57–73; PULSE 72–80; RESP 16–18; TEMP 36.1–36.9; O2SAT 91–97; BMI 18.6
[2024-12-06 04:14] LABS: Hematocrit 29.6 % (40-54); Hemoglobin 10.1 g/dL (13.0-16.5); Mean Corp Hgb Conc 34.1 g/dL (32-36); Mean Corpuscular Hgb 38.5 pg (27.0-32.0); Mean Platelet Vol. 9.8 fl (6.2-12.0); Platelet Count 240 K/mm3 (150-450); RBC Distribution Width CV 15.1 % (11.6-14.6); RBC Distribution Width SD 62.6 fl (35.1-43.9); Red Blood Count 2.62 M/mm3 (4.6-6.2)
[2024-12-06 04:26] LABS: International Normalized Ratio 1.2; Prothrombin Time (Protime)PT. 15.8 SECONDS (11.7-14.9)
[2024-12-06 05:13] LABS: Anion Gap 14 (5-15); BUN 36 mg/dL (4-19); BUN/Creat Ratio 15.6 RATIO (10-20); Calcium,Total 8.2 mg/dL (7.6-11.0); Carbon Dioxide 22.2 mmol/L (21.0-32.0); Chloride 104 mmol/L (98-108); Creatinine, Serum 2.29 mg/dL (0.70-1.20); EST Glomerular Filtration Rate 28 (>60); Estimated Creatinine Clearance 19.26 ml/min (50-250); Glucose 91 mg/dL (70-99); Potassium 3.5 mmol/L (3.3-5.1); Sodium Level 140 mmol/L (133-145)
[2024-12-06] MEDS: Amiodarone 200 MG Tablet 100 MG PO ×2 (08:42→22:41)
[2024-12-06] MEDS: Loratadine 10 MG Tablet PO (08:42)
[2024-12-06] MEDS: Tamsulosin HCl 0.4 MG Capsule PO ×2 (08:42→22:41)
[2024-12-06] MEDS: dilTIAZem CD 120 MG Capsule PO (08:42)
[2024-12-06] MEDS: Pantoprazole Sodium 40 MG in 0.9% Normal Saline (100mL MB+) 100 ML 330 MG IV ×2 (08:43→22:42)
[2024-12-06] MEDS: Finasteride 5 MG Tablet PO (08:43)
--- NOTE | 2024-12-06 09:49 | PCM.PN.HOSP ---
Reason for Visit Reason for Visit: Diagnoses Essential (primary) hypertension (12/04/24) Pulmonary hypertension, unspecified (12/04/24) Other persistent atrial fibrillation (12/04/24) Acute on chronic combined systolic (congestive) and diastolic (congestive) heart failure (12/04/24) Hemorrhage of anus and rectum (12/04/24) Presence of coronary angioplasty implant and graft (12/04/24) Subjective Subjective Patient resting comfortably in bed, woken up upon entering room, patient denies any nausea or belly pain, he denies any more chest pain or discomfort since medication adjustment Objective Data Objective Data Vital Signs: Vital Signs Temp Pulse Resp BP Pulse Ox O2 Del Method O2 Flow Rate 97.6 F L 80 18 102/67 97 Room Air 2 12/06/24 08:40 12/06/24 08:40 12/06/24 08:40 12/06/24 08:40 12/06/24 08:40 12/06/24 09:00 12/05/24 08:30 Oxygen Flow Rate (L/min) 2 Oxygen Delivery Method Room Air Weight: 55.7 kg Body Mass Index (BMI) 18.6 Intake & Output: Intake and Output for Last 24 Hours 12/04/24 12/05/24 12/06/24 23:59 23:59 23:59 Intake Total 1710 / 1710 750 / 750 110 / 110 Balance 1710 / 1710 750 / 750 110 / 110 Lab / Micro Data 12/06/24 03:38 12/06/24 03:38 Labs: Laboratory Results - last 24 hr 12/06/24 03:38: WBC 11.0, RBC 2.62 L, Hgb 10.1 L, Hct 29.6 L, MCV 113.0 H, MCH 38.5 H, MCHC 34.1, RDW Std Deviation 62.6 H, RDW Coeff of Pablo 15.1 H, Plt Count 240, MPV 9.8, PT 15.8 H, INR 1.2, Sodium 140, Potassium 3.5, Chloride 104, Carbon Dioxide 22.2, Anion Gap 14, BUN 36 H, Creatinine 2.29 H, Estim Creat Clear Calc 19.26 L, Est GFR (MDRD) Non-Af 28 L, BUN/Creatinine Ratio 15.6, Glucose 91, Calcium 8.2, TSH 2.720 Physical Exam Narrative General: Alert, oriented, no apparent distress HEENT: Atraumatic,, history of cleft lip Eyes: Anicteric, normal conjunctiva, extraocular movements grossly intact Neck: Supple Respiratory: Clear to auscultation bilaterally, normal respiratory effort Cardiovascular: Irregularly irregular GI: Soft, nontender, nondistended Extremities: No edema Musculoskeletal: Moving all extremities Neuro: No overt focal neurological deficits Skin: No rashes appreciated Psych: Cooperative Assessment & Plan Assessment/Plan (1) Bright red blood per rectum: PLAN: Plan # Bright red blood per rectum - Patient reports bright red blood per rectum that started this morning without abdominal pain, did have more rectal bleeding in the ED - Discussed with Dr. Hodges, presently vitally stable and normal hemoglobin however given ongoing bleeding patient will benefit from observation with further determination on need for endoscopies pending clinical progress -okay for clear liquid diet for now - GI consult - Given patient's reports of some recent epigastric pain and his concern that he may have an ulcer fill is reasonable to place on IV PPI for now - Hold Eliquis, presently [id number] bleed so this is not been reversed - Trend H&H -12/05: Hemoglobin remained fairly stable but patient has had more episodes of blood per rectum, GI consulted, continue to monitor -12/06: Patient for endoscopy today with gastroenterology, case discussed with GI # Elevated troponin -12/05: Overnight patient complained of some chest discomfort so troponin obtained with the first 1 being 110, second at 156, and third 272. Cardiology contacted, it was recommended to continue amiodarone and to optimize patient's other medications, diltiazem restarted, Imdur restarted at a higher dose than previously. Patient unlikely to clear troponins easily due to his stage IV CKD at the time of my evaluation patient reported that he had a kind of tight feeling in left side of chest only when he took a big inspiration specifically with incentive spirometer and it was better when he did not do that, unclear significance of this but patient is hemodynamically stable and being monitored on telemetry, appreciate cardiology recommendations. Did discuss with GI regarding possible need to go back on anticoagulation but continued bleeding, GI consult -12/06: No further chest pain today or overnight with adjustment in medications, continue these medications #Atrial Fibrillation -Continue amiodarone - Holding Eliquis -12/05: Patient on amiodarone, Imdur increased, diltiazem restarted given he has remained hemodynamically stable Amio developed chest pain -12/06: Continue current medications, Eliquis on hold due to the above #Hypertension - Given concern for active GI bleed we will hold home antihypertensives at this point, patient remains hypertensive can begin to add them back or if bleeding resolves will resume -12/05: Continued on amiodarone, Imdur resumed and increased, diltiazem resumed given stability, has had some more blood per rectum however hemoglobin is stable -12/06: Blood pressure maintaining, continue medication adjustments especially given resolution of patient's chest discomfort # CKD stage IV -Appears to be at baseline -Avoid nephrotoxic agents -Daily BMPs -12/05: Creatinine 2.54 today, is down from previous, continue current measures -12/06: Continue to improve with current measures, continue to avoid nephrotoxic agents Chronic medical problems and/or problems not being actively addressed during today's encounter: #Chronic BPH with obstruction -Continue home medications #CAD -with previous stent placement for history #Hypothyroidism -Continue Synthroid #ALVARADO - Following with pulmonology, has not yet been started on home PAP therapy # Moderate pulmonary hypertension - Echo 03/21/2024 with PASP of 64, enlarged left atrium, EF of 53% with normal LV size #DVT ppx: SCDs Emy Willard MD Time spent in the patient's overall evaluation,decision-making process, review of diagnostic data, adjustment of management, discussion with other providers, nursing nursing and ancillary staff involved in patient's care documentation, 36 Minutes Charges/Coding Visit Charges Inpatient E&M: 36104 Subs Hosp L2
--- NOTE | 2024-12-06 12:06 | PCM.PRE.AN2 ---
ASA Classification* ASA Classification ASA Classification: 3 Assessment & Plan Anesthesia* Anesthesia Assessment Anesthesia Assessment: Discussed sedation and/or anesthesia options, risks, benefits, and alternatives with patient/parents/legal guardian/POA. Questions invited. The patient/parents/legal guardian/POA seems to understand and agrees to proceed with anesthesia plan. Reviewed the physical assessment, medical history, allergy history and patient home medications list prior to surgery/procedure/anesthetic and documented any changes. Performed airway and anesthesia risk assessments. Anesthesia Type Anesthesia Type: MAC History Source History Obtained from:: Patient and Chart Anesthesia Focused Assessment* Temperature: 97.6 F Pulse Rate: 80 Blood Pressure: 102/67 Respiratory Rate: 18 Pulse Ox: 91 Oxygen Delivery Method: Room Air Oxygen Flow Rate (L/min): 2 Airway Assessment Mouth opens: >3 cm Mallampati Score: IV Teeth Condition: Caps/Crowns (Patient has bilateral crowns. They are tight.), Dentures (Patient is upper dentures. They are out.) and Missing Neck Range of motion (ROM): Limited ROM (Somewhat decreased extension) Focused Labs Anesthesia Preop lab: CBC WBC 11.0 K/mm3 (4.4-11.0) 12/06/24 03:38 12/06/24 RBC 2.62 M/mm3 (4.6-6.2) L 12/06/24 03:38 12/06/24 Hgb 10.1 g/dL (13.0-16.5) L 12/06/24 03:38 12/06/24 Hct 29.6 % (40-54) L 12/06/24 03:38 12/06/24 Plt Count 240 K/mm3 (150-450) 12/06/24 03:38 12/06/24 CHEMISTRY Potassium 3.5 mmol/L (3.3-5.1) 12/06/24 03:38 12/06/24 Sodium 140 mmol/L (133-145) 12/06/24 03:38 12/06/24 Magnesium 2.2 mg/dL (1.5-2.2) 12/05/24 03:27 12/05/24 Phosphorus 3.6 mg/dL (2.5-4.9) 03/17/24 06:23 03/17/24 BUN 36 mg/dL (4-19) H 12/06/24 03:38 12/06/24 Creatinine 2.29 mg/dL (0.70-1.20) H 12/06/24 03:38 12/06/24 Glucose 91 mg/dL (70-99) 12/06/24 03:38 12/06/24 POC Glucose 88 mg/dL (74-106) 05/01/24 06:28 05/01/24 TSH 2.720 uIU/mL (0.300-4.200) 12/06/24 03:38 12/06/24 COAG PT 15.8 SECONDS (11.7-14.9) H 12/06/24 03:38 12/06/24 INR 5.5 H* 03/22/22 15:57 03/22/22 Pre-Assessment Diagnosis/Proposed Procedure Planned Operative Procedure(s): Esophagogastroduodenoscopy and colonoscopy with control of bleeding Anesthesia History 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 When Was Last Pacemaker Check QUESTION #4 FULL TEXT: You/Your Family Experience fever (hyperthermia) with Anesthesia Last Oral Intake Last Oral intake: Last Oral Intake NPO since 02:00 12/06/24 05:14 Meds taken in AM with sips of water? 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 Female HX of Motion Sickness HX of N/V After Surgery Non-Smoker Duration of Surgery greater than 60 minutes Number of Risk Factors PONV Score Height & Weight Height & Weight: Anesthesia: Height & Weight Height 5 ft 8 in 12/06/24 05:14 Weight: 55.7 kg 12/06/24 05:14 Body Mass Index (BMI) 18.6 12/06/24 05:14 Respiratory Assessment Respiratory Assessment - building trades teacher: Respiratory Tract Infection Hx - building trades teacher Hx Respiratory Tract Infection No 12/06/24 05:14 STOP Sleep Apnea STOP Sleep Apnea - building trades teacher: STOP Sleep Apnea - building trades teacher Hx Hypertension Yes 12/04/24 12:11 Hx Sleep Apnea Yes 12/04/24 12:11 CPAP No: In process of getting 12/04/24 12:11 one BIPAP No 12/04/24 12:11 Do you snore loudly (louder than talking or can be heard Do you often feel tired/ fatigued/ sleepy during daytime? Has anyone observed you stop breathing during sleep? STOP Results Positive 12/04/24 12:11 QUESTION #5 FULL TEXT : Do you snore loudly (louder than talking or can be heard through closed doors)? 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 Specify any problems Hx of Preganancy in last 3 N/A 12/04/24 12:11 Months Nurse Filling Out Transfusion RAUL 12/04/24 12:11 & Questions: Date: 12/04/24 12/04/24 12:11 Time: 12:22 12/04/24 12:11 Patient unable to answer at this time (ie. confused, unrespo /Reproduction History /Reproductive History - building trades teacher: /Reproductive Hx- building trades teacher Hx Now No 12/06/24 05:14 Gestational Age (in weeks): EDC: Hx Hx Para Hx Section SAB No 12/06/24 05:14 Active Medications Active Medications: Current Medications Generic Name Dose Route Start Last Admin Trade Name Freq PRN Reason Stop Dose Admin Acetaminophen 650 mg 12/04/24 12:01 Acetaminophen 325 Mg Tablet PO Q6H PRN PRN Pain 1-10 Or Fever >100.7 Albuterol Sulfate 2.5 mg 12/04/24 12:01 Albuterol 2.5 Mg/3 Ml Vial.Neb. INHALATION Q2H PRN PRN SOB &/OR WHEEZING Amiodarone HCl 100 mg 12/04/24 12:30 12/06/24 08:42 Amiodarone 200 Mg Tablet PO 100 mg BID ILEANA Administration Diltiazem HCl 120 mg 12/05/24 10:00 12/06/24 08:42 Diltiazem Cd 120 Mg Capsule PO 120 mg DAILY ILEANA Administration Protocol Finasteride 5 mg 12/04/24 12:01 12/06/24 08:43 Finasteride 5 Mg Tablet PO 5 mg DAILY ILEANA Administration Pantoprazole Sodium 40 mg/ 110 mls @ 330 mls/hr 12/04/24 12:01 12/06/24 09:09 Sodium Chloride IV Infused Q12 ILEANA Infusion Sodium Chloride 100 mls @ 15 mls/hr 12/04/24 12:14 12/04/24 15:24 IV Infused .Q6H40M PRN Infusion Saline Flush Isosorbide Mononitrate 60 mg 12/05/24 10:00 12/05/24 10:15 Isosorbide Mononitrate 60 Mg Tablet PO 60 mg DAILY ILEANA Administration Protocol Levothyroxine Sodium 50 mcg 12/05/24 06:00 12/06/24 05:33 Levothyroxine 50 Mcg Tablet PO Not Given DAILY@0600 ILEANA Loratadine 10 mg 12/04/24 12:01 12/06/24 08:42 Loratadine 10 Mg Tablet PO 10 mg Q48 ILEANA Administration Melatonin 3 mg 12/04/24 12:01 Melatonin 3 Mg Tablet PO QHS PRN PRN INSOMNIA Menthol 1 applic 12/06/24 01:00 Menthol 226.8 Gm Jar TOPICAL TID PRN PRN Arthritis Pain 1-10 Ondansetron HCl 4 mg 12/04/24 12:01 Ondansetron 4 Mg/2 Ml Vial IV Q8H PRN PRN NAUSEA/VOMITING Senna/Docusate Sodium 2 tablet 12/04/24 12:01 Senna/Docusate Sodium 1 Tablet PO BID PRN PRN Constipation Sodium Chloride 10 - 40 ml 12/04/24 12:14 12/04/24 14:44 0.9% Saline Lock 10 Ml Syringe IV 10 ml UD PRN Administration SALINE FLUSH Tamsulosin HCl 0.4 mg 12/04/24 12:01 12/06/24 08:42 Tamsulosin Hcl 0.4 Mg Capsule PO 0.4 mg BID ILEANA Administration Trazodone HCl 25 mg 12/04/24 22:00 12/05/24 20:58 Trazodone 50 Mg Tablet PO 25 mg QHS ILEANA Administration [facility] Medical History History of atrial fibrillation COPD (chronic obstructive pulmonary disease) with emphysema CHF (congestive heart failure) Hypoxia Chronic kidney disease Chronic anticoagulation Acute dyspnea Acute kidney injury Hypotension Abnormal abdominal ultrasound Persistent atrial fibrillation Hearing loss, left Hearing loss, right Anxiety Chronic pain Rheumatoid arthritis COPD (chronic obstructive pulmonary disease) Irregular heart beat Hypertension Hypothyroidism Hiatal hernia Acute constipation Acute exacerbation of chronic low back pain Wears glasses Thyroid disease Ambulates with cane Arthritis History of renal disease Anemia High cholesterol Easy bruising Excessive bleeding History of leukemia Back pain Difficulty chewing History of diverticulitis Gastric reflux Sleep apnea History of pain when walking History of edema History of echocardiogram History of stress test Cardiology follow-up encounter History of heart attack Nausea and vomiting Chronic anemia Diarrhea Colitis Sleep apnea Acute kidney injury superimposed on chronic kidney disease On amiodarone therapy Elevated LFTs Thoracic aortic aneurysm (TAA) Chronic heart failure with preserved ejection fraction (HFpEF) Nonrheumatic mitral (valve) insufficiency Atypical atrial flutter (12/2020) Elevated liver enzymes Debility Dysphagia Osteoarthritis History of colon polyps Cancer Kidney stones Kidney disease Non-smoker CPAP (continuous positive airway pressure) dependence Atrial fibrillation Myocardial infarct Chronic renal insufficiency Acute gastrointestinal bleeding Chronic kidney disease Benign prostatic hyperplasia Stage 3b chronic kidney disease GI bleed (2012) Non-rheumatic tricuspid valve insufficiency Secondary pulmonary arterial hypertension Essential (primary) hypertension BPH (benign prostatic hyperplasia) History of hyperthyroidism Paroxysmal atrial fibrillation 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 HLD (hyperlipidemia) Home Medications ?Medication ?Instructions ?Recorded ?Last Taken ?Type tamsulosin 0.4 mg capsule 0.4 mg PO BID PROSTATE 11/18/21 12/03/24 History vitamin B complex 1 cap PO BID SUPPLEMENT 05/01/22 12/03/24 History ascorbic acid (vitamin C) 500 mg 500 mg PO BID SUPPLEMENT 07/20/22 12/03/24 History tablet finasteride 5 mg tablet 5 mg PO DAILY PROSTATE 08/05/22 12/03/24 History cholecalciferol (vitamin D3) 25 1,000 unit PO QHS SUPPLEMENT 02/19/23 12/03/24 History mcg (1,000 unit) capsule (Vitamin D3) empagliflozin 10 mg tablet 10 mg PO DAILY DIABTETES #0 tabs 07/22/23 12/03/24 Rx (Jardiance) isosorbide mononitrate 30 mg 30 mg PO DAILY CHEST PAIN 02/28/24 12/03/24 History tablet,extended release 24 hr magnesium chloride 64 mg 64 mg PO BID SUPPLEMENT 02/28/24 12/03/24 History (magnesium chloride) tablet,delayed release (Mag 64) trazodone 50 mg tablet 25 mg PO QHS INSOMNIA 02/28/24 12/03/24 History amiodarone 100 mg tablet 100 mg PO BID HEART #180 tabs 02/29/24 12/03/24 Rx ferrous sulfate 325 mg (65 mg 325 mg PO QHS ANEMIA 03/20/24 12/03/24 History iron) tablet (Feosol) levothyroxine 50 mcg tablet 50 mcg PO DAILY THYROID 03/20/24 12/03/24 History apixaban 2.5 mg tablet (Eliquis) 2.5 mg PO BID Anticoagulant #60 03/24/24 12/03/24 Rx tabs diltiazem HCl 120 mg 120 mg PO DAILY heart rate 30 days 04/25/24 12/03/24 Rx capsule,extended release 24 hr #30 caps furosemide 20 mg tablet 20 mg PO BID fluid overload 08/28/24 12/03/24 History nitroglycerin 0.4 mg sublingual 0.4 mg sublingual Q5M PRN 08/28/24 Unknown Rx tablet Cardiac/Chest Pain #25 tabs pantoprazole 20 mg tablet,delayed 20 mg PO DAILY Gerd 08/28/24 12/03/24 History release potassium chloride 20 mEq 20 meq PO BID supplement 08/28/24 12/03/24 History tablet,extended release(part/cryst) acetaminophen 500 mg tablet 500 mg PO TID PRN pain 12/04/24 12/03/24 History (Acetaminophen Extra Strength) albuterol sulfate 2.5 mg/0.5 mL 2.5 mg inhalation Q6H PRN pain 12/04/24 Unknown History solution for nebulization baclofen 10 mg tablet 5 mg PO TID PRN muscle pain 12/04/24 12/03/24 History calcium carbonate (Antacid 400 mg PO Q6H Gerd 12/04/24 12/03/24 History (calcium carbonate)) calcium citrate 200 mg PO BID SUPPLEMENT 12/04/24 12/03/24 History clonidine HCl 0.1 mg tablet 0.05 - 0.1 mg PO DAILY PRN BP 12/04/24 Unknown History famotidine 20 mg tablet 20 mg PO BID Cardiac stent 12/04/24 12/03/24 History hydralazine 50 mg tablet 50 mg PO 4X/DAY B/P 12/04/24 12/03/24 History hydromorphone 2 mg tablet 1 - 2 mg PO QHS CHEST PAIN 12/04/24 12/03/24 History lidocaine 5 % topical patch 1 patch topical Q24H Pain 12/04/24 12/03/24 History (DermacinRx Lidocan) loratadine 10 mg tablet 10 mg PO DAILY allergies 12/04/24 12/03/24 History (Allerclear) meclizine 12.5 mg tablet 12.5 mg PO Q8H PRN dizziness 12/04/24 Unknown History ondansetron 4 mg disintegrating 4 mg PO Q4H PRN nausea 12/04/24 Unknown History tablet simethicone 125 mg capsule (Gas 125 mg PO TIDCM Gerd 12/04/24 12/03/24 History Relief (simethicone)) zoledronic acid 5 mg/100 mL in 1 ea IV .COMPLEX Bone 12/04/24 Unknown History mannitol 5 %-water intravenous piggybck (Reclast) Allergy/AdvReac Type Severity Reaction Status Date / Time diclofenac Allergy rash Verified 12/04/24 07:22 prednisone Allergy Rash Verified 12/04/24 07:22 Family History Father Cancer Prostate cancer Mother Hypertension Sister Hypertension Surgical History History of colonoscopy (03/26/24) History of back surgery History of cardiac catheterization History of esophagogastroduodenoscopy (EGD) History of cardioversion (06/18/19) History of radiofrequency ablation procedure for cardiac arrhythmia (11/11/11) History of electrophysiologic study (08/08/00) History of left heart catheterization (07/17/12) History of hemorrhoidectomy History of Zenaida fundoplication History of coronary artery stent placement (08/04/00) History of hernia repair History of back surgery Social History household members: none Smoking Status: Never smoker alcohol intake: never substance use type: does not use caffeine: No Review of Systems (Anesthesia) ROS Narrative System reviewed and no additional complaints, except as documented.
--- NOTE | 2024-12-06 12:30 | PCM.PN.BLA ---
Progress Note Patient had more bleeding overnight. His hemoglobin seems to be stable. He has been n.p.o. since midnight. Physical Exam Narrative General: Alert, oriented, no apparent distress HEENT: Atraumatic,, history of cleft lip Eyes: Anicteric, normal conjunctiva, extraocular movements grossly intact Neck: Supple Respiratory: Clear to auscultation bilaterally, normal respiratory effort Cardiovascular: Irregularly irregular GI: Soft, nontender, nondistended Extremities: No edema Musculoskeletal: Moving all extremities Neuro: No overt focal neurological deficits Skin: No rashes appreciated Psych: Cooperative Assessment & Plan Assessment/Plan (1) CHF (congestive heart failure): PLAN: Plan The patient is an 84 y/o M with multiple comorbidities presents back to the hospital with worsening lower GI bleeding with a history of upper GI bleeding and lower GI bleeding. He should undergo an upper endoscopy to evaluate his upper GI tract and lower GI tract for the etiology of his GI bleed and because he needs to have anticoagulation because of history of atrial fibrillation. He was explained alternatives, risk and benefits include not withstanding bleeding, infection, sepsis, perforation, need for emergent urgent . Have an ASA of 3. Visit Charges Inpatient E&M: 71044 [facility] Hosp L3
--- NOTE | 2024-12-06 13:28 | PCM.POST.ANE ---
Anesthesia: Postop Eval I Current Vital Signs Temperature: 97.8 F Pulse Rate: 72 Blood Pressure: 83/73 Respiratory Rate: 16 Pulse Ox: 96 Oxygen Delivery Method: Room Air Assessment Airway patent: Yes Spontaneous unlabored respirations: Yes Mental status: Asleep nausea: No Vomiting: No Anesthesia Complication: No Fluid Hydration Crystalloid volume administer (ml): 60 Total IV fluid infused: 60 Progress Note Anesthesia document: Postop Eval 1 completed: Yes
--- NOTE | 2024-12-06 15:26 | OP.CCLET_ITS ---
12/06/2024 César Chinchilla [address] [facility] [facility] [address] [place] [address] Re : Upper GI endoscopy procedure for Balbir Mckeon Dear Dr. Chinchilla This procedure was performed on November. My impressions and recommendations are as follows: Impressions : - Normal esophagus. - Medium-sized hiatal hernia. 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 Treated with a heater probe. - A single non-bleeding angiodysplastic lesion in the duodenum. Treated with a heater probe. - No specimens collected. Recommendations : - [facility]. - Resume previous diet. - Continue present medications. My findings are described in the full procedure note, which is enclosed. If I can be of further assistance, please feel free to contact me at . Sincerely, Mika Hodges, 12/06/2024 3:26:04 PM This report has been signed electronically.
--- NOTE | 2024-12-06 15:26 | OP.EGD_ITS ---
Patient Name: Balbir Mckeon Procedure Date: 12/06/2024 12:49 PM Date of : 1940 Age: 84 Procedure: Upper GI endoscopy Indications: Hematochezia, Melena, Recent gastrointestinal bleeding Providers: Mika Hodges DO Medicines: Monitored Anesthesia Care Patient Profile: This is an 84 year old male. Refer to note in patient chart for documentation of history and physical. Complications: No immediate complications. Procedure: Pre-Anesthesia Assessment: - Prior to the procedure, a History and Physical was performed, and patient medications and allergies were reviewed. The patient is competent. The risks and benefits of the procedure and the sedation options and risks were discussed with the patient. All questions were answered and informed consent was obtained. Patient identification and proposed procedure were verified by the physician in the pre-procedure area. Mental Status Examination: alert and oriented. Airway Examination: normal oropharyngeal airway and neck mobility. Respiratory Examination: clear to auscultation. CV Examination: normal. Prophylactic Antibiotics: The patient does not require prophylactic antibiotics. Prior Anticoagulants: The patient has taken no anticoagulant or antiplatelet agents. ASA Grade Assessment: III - A patient with severe systemic disease. After reviewing the risks and benefits, the patient was deemed in satisfactory condition to undergo the procedure. The anesthesia plan was to use monitored anesthesia care (MAC). Immediately prior to administration of medications, the patient was re-assessed for adequacy to receive sedatives. The heart rate, respiratory rate, oxygen saturations, blood pressure, adequacy of pulmonary ventilation, and response to care were monitored throughout the procedure. The physical status of the patient was re-assessed after the procedure. After obtaining informed consent, the endoscope was passed under direct vision. Throughout the procedure, the patient's blood pressure, pulse, and oxygen saturations were monitored continuously. The gastroscope was introduced through the mouth, and advanced to the fourth part of the duodenum. Small bowel enteroscopy was deemed necessary. The upper GI endoscopy was accomplished without difficulty. The patient tolerated the procedure well. Scope In: 12:56:43 PM Scope Out: 1:00:33 PM Total Procedure Duration Time 0 hours 3 minutes 50 seconds Findings: The examined esophagus was normal. A medium-sized hiatal hernia was present. Two 5 mm angiodysplastic lesions with bleeding were found in the gastric antrum. Coagulation for hemostasis using heater probe was successful. Estimated blood loss was minimal. A single 5 mm angiodysplastic lesion without bleeding was found in the third portion of the duodenum. Coagulation for bleeding prevention using heater probe was successful. Estimated blood loss was minimal. Impression: - Normal esophagus. - Medium-sized hiatal hernia. 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 Treated with a heater probe. - A single non-bleeding angiodysplastic lesion in the duodenum. Treated with a heater probe. - No specimens collected. Recommendation: - [facility]. - Resume previous diet. - Continue present medications. Procedure Code(s): --- Professional --- 29636, Small intestinal endoscopy, enteroscopy beyond second portion of duodenum, not including ileum; with control of bleeding (eg, injection, bipolar cautery, unipolar cautery, laser, heater probe, stapler, plasma squash centre manager) CPT copyright 2021 [employer]. All rights reserved. The codes documented in this report are preliminary and upon remote coders review may be revised to meet current compliance requirements. Mika Hodges DO 12/06/2024 3:26:04 PM This report has been signed electronically. Number of Addenda: 0 Note Initiated On: 12/06/2024 12:49 PM
--- NOTE | 2024-12-06 15:33 | OP.CCLET_ITS ---
12/06/2024 César Chinchilla [address] [facility] [address] [place] [address] Re : Colonoscopy procedure for Balbir Mckeon Dear Dr. Chinchilla This procedure was performed on November. My impressions and recommendations are as follows: Impressions : - Preparation of the colon was fair. - Diverticulosis in the entire examined colon. - Stool in the rectum, in the recto-sigmoid colon, in the sigmoid colon, at the splenic flexure, in the transverse colon and in the ascending colon. There were areas in the sigmoid colon that look like it had some bleeding stigmata. - The examined portion of the ileum was normal. - No specimens collected. Recommendations : - [facility]. - Resume regular diet. - Continue present medications. - Stool softeners twice a day - No repeat colonoscopy due to age. My findings are described in the full procedure note, which is enclosed. If I can be of further assistance, please feel free to contact me at . Sincerely, Mika Hodges, 12/06/2024 3:33:02 PM This report has been signed electronically.
--- NOTE | 2024-12-06 15:33 | OP.COLON_ITS ---
Patient Name: Balbir Mckeon Procedure Date: 12/06/2024 1:00 PM Date of : 1940 Age: 84 Procedure: Colonoscopy Indications: Hematochezia Providers: Mika Hodges DO Medicines: Monitored Anesthesia Care Patient Profile: This is an 84 year old male. Refer to note in patient chart for documentation of history and physical. Last Colonoscopy: more than 3 years ago. Complications: No immediate complications. Procedure: Pre-Anesthesia Assessment: - Prior to the procedure, a History and Physical was performed, and patient medications and allergies were reviewed. The patient is competent. The risks and benefits of the procedure and the sedation options and risks were discussed with the patient. All questions were answered and informed consent was obtained. Patient identification and proposed procedure were verified by the physician in the pre-procedure area. Mental Status Examination: alert and oriented. Airway Examination: normal oropharyngeal airway and neck mobility. Respiratory Examination: clear to auscultation. CV Examination: normal. Prophylactic Antibiotics: The patient does not require prophylactic antibiotics. Prior Anticoagulants: The patient has taken no anticoagulant or antiplatelet agents. ASA Grade Assessment: III - A patient with severe systemic disease. After reviewing the risks and benefits, the patient was deemed in satisfactory condition to undergo the procedure. The anesthesia plan was to use monitored anesthesia care (MAC). Immediately prior to administration of medications, the patient was re-assessed for adequacy to receive sedatives. The heart rate, respiratory rate, oxygen saturations, blood pressure, adequacy of pulmonary ventilation, and response to care were monitored throughout the procedure. The physical status of the patient was re-assessed after the procedure. After I obtained informed consent, the scope was passed under direct vision. Throughout the procedure, the patient's blood pressure, pulse, and oxygen saturations were monitored continuously. The Colonoscope was introduced through the anus and advanced to the cecum, identified by the appendiceal orifice, ileocecal valve and palpation. The colonoscopy was performed without difficulty. The patient tolerated the procedure well. The quality of the bowel preparation was fair. The ileocecal valve, appendiceal orifice, and rectum were photographed. Scope In: 1:03:02 PM Scope Withdrawal Time 0 hours 6 minutes 38 seconds Scope Out: 1:18:33 PM Total Procedure Duration Time 0 hours 15 minutes 31 seconds Findings: The perianal and digital rectal examinations were normal. Multiple small and large-mouthed diverticula were found in the entire colon. Stool was found in the rectum, in the recto-sigmoid colon, in the sigmoid colon, at the splenic flexure, in the transverse colon and in the ascending colon. Bleeding stigmata in the sigmoid colon. The terminal ileum appeared normal. Impression: - Preparation of the colon was fair. - Diverticulosis in the entire examined colon. - Stool in the rectum, in the recto-sigmoid colon, in the sigmoid colon, at the splenic flexure, in the transverse colon and in the ascending colon. There were areas in the sigmoid colon that look like it had some bleeding stigmata. - The examined portion of the ileum was normal. - No specimens collected. Recommendation: - [facility]. - Resume regular diet. - Continue present medications. - Stool softeners twice a day - No repeat colonoscopy due to age. Procedure Code(s): --- Professional --- 25752, Colonoscopy, flexible; diagnostic, including collection of specimen(s) by brushing or washing, when performed (separate procedure) CPT copyright 2021 [employer]. All rights reserved. The codes documented in this report are preliminary and upon immunohematologist review may be revised to meet current compliance requirements. Mika Hodges DO 12/06/2024 3:33:02 PM This report has been signed electronically. Number of Addenda: 0 Note Initiated On: 12/06/2024 1:00 PM
--- NOTE | 2024-12-06 19:14 | PCM.POSTANE2 ---
Anesthesia Postop Eval I Sum Postop Eval Completion status Anesthesia document: Postop Eval 1 completed: Yes Anesthesia Postop Eval I Summary Anesthesia Postop Eval I Summary: Anesthesia Postop Eval I: Assessment Summary Airway patent Yes 12/06/24 13:30 [email or web address] Spontaneous unlabored Yes 12/06/24 13:30 [email or web address] respirations Mental status Asleep 12/06/24 13:30 [email or web address] nausea No 12/06/24 13:30 [email or web address] Vomiting No 12/06/24 13:30 [email or web address] Anesthesia Postop Eval I: Fluid Summary Crystalloid volume administer 60 12/06/24 13:30 [email or web address] (ml) Colloids volume administered ( ml) Blood Product volume administered (ml) Total IV fluid infused 60 12/06/24 13:30 [email or web address] Anesthesia Postop Eval I: Summary Notes Anesthesia Complication No 12/06/24 13:30 [email or web address] Anesthesia Complication Comment: Post-operative progress note Anesthesia: Postop Eval II Evaluation Mental status: Awake and Calm Pain Level: 0 nausea: No Vomiting: No
[2024-12-06] MEDS: MENTHOL 226.8 GM JAR 1 APPLIC TOPICAL (22:37)
[2024-12-06] MEDS: traZODone 50 MG Tablet 25 MG PO (22:41)
[2024-12-06] MEDS: 0.9% Saline Lock 10 ML Syringe IV (22:41)
[2024-12-07] VITALS (8 sets, daily range): BP systolic 87–113; BP diastolic 52–86; PULSE 72–77; RESP 14–18; TEMP 36.4–36.8; O2SAT 87–96
[2024-12-07] MEDS: Acetaminophen 325 MG Tablet 650 MG PO (00:04)
[2024-12-07] MEDS: Levothyroxine 50 MCG Tablet PO (05:47)
[2024-12-07 08:05] LABS: Hematocrit 27.7 % (40-54); Hemoglobin 9.4 g/dL (13.0-16.5); Mean Corp Hgb Conc 33.9 g/dL (32-36); Mean Corpuscular Hgb 38.7 pg (27.0-32.0); Mean Platelet Vol. 10.1 fl (6.2-12.0); Platelet Count 207 K/mm3 (150-450); RBC Distribution Width CV 15.1 % (11.6-14.6); Red Blood Count 2.43 M/mm3 (4.6-6.2); White Blood Count 9.5 K/mm3 (4.4-11.0)
[2024-12-07 08:36] LABS: Anion Gap 12 (5-15); BUN 30 mg/dL (4-19); BUN/Creat Ratio 12.8 RATIO (10-20); Calcium,Total 7.9 mg/dL (7.6-11.0); Carbon Dioxide 22.3 mmol/L (21.0-32.0); Chloride 107 mmol/L (98-108); Creatinine, Serum 2.31 mg/dL (0.70-1.20); EST Glomerular Filtration Rate 27 (>60); Estimated Creatinine Clearance 19.09 ml/min (50-250); Glucose 75 mg/dL (70-99); Potassium 3.4 mmol/L (3.3-5.1); Sodium Level 141 mmol/L (133-145)
[2024-12-07] MEDS: Pantoprazole Sodium 40 MG in 0.9% Normal Saline (100mL MB+) 100 ML 330 MG IV ×2 (08:52→21:14)
[2024-12-07] MEDS: Amiodarone 200 MG Tablet 100 MG PO ×2 (08:52→20:58)
[2024-12-07] MEDS: Isosorbide Mononitrate 60 MG Tablet PO (08:52)
[2024-12-07] MEDS: dilTIAZem CD 120 MG Capsule PO (08:52)
[2024-12-07] MEDS: Finasteride 5 MG Tablet PO (08:52)
[2024-12-07] MEDS: Tamsulosin HCl 0.4 MG Capsule PO ×2 (08:53→20:57)
[2024-12-07] MEDS: Senna/Docusate Sodium 1 Tablet 2 TABLET PO (08:58)
--- NOTE | 2024-12-07 14:24 | PCM.PN.HOSP ---
Reason for Visit Reason for Visit: Diagnoses Essential (primary) hypertension (12/04/24) Pulmonary hypertension, unspecified (12/04/24) Other persistent atrial fibrillation (12/04/24) Acute on chronic combined systolic (congestive) and diastolic (congestive) heart failure (12/04/24) Heart failure, unspecified (12/04/24) Hemorrhage of anus and rectum (12/04/24) Presence of coronary angioplasty implant and graft (12/04/24) Subjective Subjective Patient laying in bed, reports he has had a couple episodes of watery stool and when he looked at the second 1 there was blood that was bright red, he was unable to quantify it given everything was liquid, had some abdominal cramping is not presently having any severe pain, breathing is at baseline, no further chest pain Objective Data Objective Data Vital Signs: Vital Signs Temp Pulse Resp BP Pulse Ox O2 Del Method O2 Flow Rate 97.7 F L 77 16 82/51 L 95 Room Air 2 12/07/24 14:00 12/07/24 14:00 12/07/24 14:00 12/07/24 14:00 12/07/24 14:00 12/07/24 14:00 12/06/24 12:12 Oxygen Flow Rate (L/min) 2 Oxygen Delivery Method Room Air Weight: 55.7 kg Body Mass Index (BMI) 18.6 Intake & Output: Intake and Output for Last 24 Hours 12/05/24 12/06/24 12/07/24 23:59 23:59 23:59 Intake Total 750 / 750 970 / 970 160 / 160 Output Total 200 / 200 0 / 0 Balance 750 / 750 770 / 770 160 / 160 Lab / Micro Data 12/07/24 07:13 12/07/24 07:13 Labs: Laboratory Results - last 24 hr 12/07/24 07:13: WBC 9.5, RBC 2.43 L, Hgb 9.4 L, Hct 27.7 L, MCV 114.0 H, MCH 38.7 H, MCHC 33.9, RDW Std Deviation 63.0 H, RDW Coeff of Pablo 15.1 H, Plt Count 207, MPV 10.1, Sodium 141, Potassium 3.4, Chloride 107, Carbon Dioxide 22.3, Anion Gap 12, BUN 30 H, Creatinine 2.31 H, Estim Creat Clear Calc 19.09 L, Est GFR (MDRD) Non-Af 27 L, BUN/Creatinine Ratio 12.8, Glucose 75, Calcium 7.9 Physical Exam Narrative General: Alert, oriented, no apparent distress HEENT: Atraumatic,, history of cleft lip Eyes: Anicteric, normal conjunctiva, extraocular movements grossly intact Neck: Supple Respiratory: Clear to auscultation bilaterally, normal respiratory effort Cardiovascular: Irregularly irregular GI: Soft, nontender, nondistended Extremities: No edema Musculoskeletal: Moving all extremities Neuro: No overt focal neurological deficits Skin: No rashes appreciated Psych: Cooperative Assessment & Plan Assessment/Plan (1) Bright red blood per rectum: PLAN: Plan # Bright red blood per rectum - Patient reports bright red blood per rectum that started this morning without abdominal pain, did have more rectal bleeding in the ED - Discussed with Dr. Hodges, presently vitally stable and normal hemoglobin however given ongoing bleeding patient will benefit from observation with further determination on need for endoscopies pending clinical progress -okay for clear liquid diet for now - GI consult - Given patient's reports of some recent epigastric pain and his concern that he may have an ulcer fill is reasonable to place on IV PPI for now - Hold Eliquis, presently [id number] bleed so this is not been reversed - Trend H&H -12/05: Hemoglobin remained fairly stable but patient has had more episodes of blood per rectum, GI consulted, continue to monitor -12/06: Patient for endoscopy today with gastroenterology, case discussed with GI -12/07: Hemoglobin 9.4, colonoscopy with possibly some areas that looked like there was bleeding stigmata but otherwise only stool seen in colon no prep was fair. Recommended for stool softeners twice a day and no repeat colonoscopy for age. 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 This a.m. patient with liquid stool the second of which had blood, unclear if this is leftover or new however throughout the day he has not had any further bowel movements, rechecking H&H this afternoon to verify stability, will likely monitor overnight, will need to discuss optimal timing of resuming Eliquis with gastroenterology #Hypertension - Given concern for active GI bleed we will hold home antihypertensives at this point, patient remains hypertensive can begin to add them back or if bleeding resolves will resume -12/05: Continued on amiodarone, Imdur resumed and increased, diltiazem resumed given stability, has had some more blood per rectum however hemoglobin is stable -12/06: Blood pressure maintaining, continue medication adjustments especially given resolution of patient's chest discomfort -12/07: Patient's BP on the low side, suspect that some of this is an activity and some of this is due to dehydration from being on a minimal diet and then having colon prep and large stool/water output, will give IV fluids, patient resting comfortably with no other alarming signs or symptoms, monitor BP Chronic medical problems and/or problems not being actively addressed during today's encounter: # Elevated troponin -12/05: Overnight patient complained of some chest discomfort so troponin obtained with the first 1 being 110, second at 156, and third 272. Cardiology contacted, it was recommended to continue amiodarone and to optimize patient's other medications, diltiazem restarted, Imdur restarted at a higher dose than previously. Patient unlikely to clear troponins easily due to his stage IV CKD at the time of my evaluation patient reported that he had a kind of tight feeling in left side of chest only when he took a big inspiration specifically with incentive spirometer and it was better when he did not do that, unclear significance of this but patient is hemodynamically stable and being monitored on telemetry, appreciate cardiology recommendations. Did discuss with GI regarding possible need to go back on anticoagulation but continued bleeding, GI consult -12/06: No further chest pain today or overnight with adjustment in medications, continue these medications #Atrial Fibrillation -Continue amiodarone - Holding Eliquis -12/05: Patient on amiodarone, Imdur increased, diltiazem restarted given he has remained hemodynamically stable Amio developed chest pain -12/06: Continue current medications, Eliquis on hold due to the above # CKD stage IV -Appears to be at baseline -Avoid nephrotoxic agents -Daily BMPs -12/05: Creatinine 2.54 today, is down from previous, continue current measures -12/06: Continue to improve with current measures, continue to avoid nephrotoxic agents Chronic medical problems and/or problems not being actively addressed during today's encounter: #Chronic BPH with obstruction -Continue home medications #CAD -with previous stent placement for history #Hypothyroidism -Continue Synthroid #ALVARADO - Following with pulmonology, has not yet been started on home PAP therapy # Moderate pulmonary hypertension - Echo 03/21/2024 with PASP of 64, enlarged left atrium, EF of 53% with normal LV size #DVT ppx: SCDs Emy Willard MD Time spent in the patient's overall evaluation,decision-making process, review of diagnostic data, adjustment of management, discussion with other providers, nursing nursing and ancillary staff involved in patient's care documentation, 38 Minutes Charges/Coding Visit Charges Inpatient E&M: 87031 Subs Hosp L2
--- NOTE | 2024-12-07 14:35 | CHAPLAIN ---
Type of Pastoral Visit _x__ Initial Visit ___ Follow-up Visit ___ On-call Visit ___ General Patient Visit ___ Spiritual Assessment ___ Family Conference ___ Bereavement ___ Rapid Response ___ Code Blue ___ Other (describe below) Pastoral Care Referral From _x__ Patient ___ Family ___ Nurse ___ Physician ___ Account Coordinator ___ Brancher ___ Other (describe below) Sacrament/Intervention _x__ Active listening ___ Anointing ___ Orthodox ___ Bereavement ___ Communion _x__ Jerica exploration ___ ___ Life review _x__ Prayer ___ Reconciliation ___ Sacrament of Sick ___ Supportive presence ___ Wedding ___ Other (describe below) Pastoral Comments patient describes his testing for health concerns; pt says that he would like to get back into a [employer] and makes comments and questions to this geology instructor about that; pt says that he needs a prayer; pt has limited family support
[2024-12-07 15:17] LABS: Hematocrit 27.3 % (40-54); Hemoglobin 9.2 g/dL (13.0-16.5); Mean Corp Hgb Conc 33.7 g/dL (32-36); Mean Corpuscular Volume 115.7 fL (80-94); Mean Platelet Vol. 9.7 fl (6.2-12.0); Platelet Count 230 K/mm3 (150-450); RBC Distribution Width CV 15.4 % (11.6-14.6); RBC Distribution Width SD 64.7 fl (35.1-43.9); Red Blood Count 2.36 M/mm3 (4.6-6.2); White Blood Count 11.2 K/mm3 (4.4-11.0)
[2024-12-07] MEDS: Lactated Ringers 500 ML 999 ML IV (15:37)
--- NOTE | 2024-12-07 17:14 | CASEMGMT ---
RN CM in to discuss needs at discharge. Patient independent to BSC with activity, blood pressure has been low. RN CM discussed therapy at discharge, patient undecided at this time. RN CM reviewed C vs outpatient at discharge. Patient states he would like to think about it. CM to follow up with patient tomorrow regarding discharge needs.
[2024-12-07] MEDS: 0.9% Normal Saline (1000mL) 1,000 ML 100 ML IV (18:40)
[2024-12-07] MEDS: Sodium Ferric Gluconat/Sucrose 250 MG in 0.9% Normal Saline (250mL Bag) 250 ML 135 MG IV (18:42)
[2024-12-07] MEDS: Cyanocobalamin (B12) 1,000 MCG/ML Vial 1000 MCG IM (18:45)
--- NOTE | 2024-12-07 19:34 | PCM.PN.BLA ---
Progress Note Patient did admit to some lower GI bleeding.. He underwent colonoscopy yesterday and there was no blood seen in his colon but he did have significant diverticular disease and (. Physical Exam Narrative General: Alert, oriented, no apparent distress HEENT: Atraumatic,, history of cleft lip Eyes: Anicteric, normal conjunctiva, extraocular movements grossly intact Neck: Supple Respiratory: Clear to auscultation bilaterally, normal respiratory effort Cardiovascular: Irregularly irregular GI: Soft, nontender, nondistended Extremities: No edema Musculoskeletal: Moving all extremities Neuro: No overt focal neurological deficits Skin: No rashes appreciated Psych: Cooperative Assessment & Plan Assessment/Plan (1) Bright red blood per rectum: PLAN: Plan Hemoglobin 9.4, colonoscopy with possibly some areas that looked like there was bleeding stigmata but otherwise only stool seen in colon no prep was fair. Recommended for stool softeners twice a day and no repeat colonoscopy for age. 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 This a.m. patient with liquid stool the second of which had blood, unclear if this is leftover or new however throughout the day he has not had any further bowel movements, rechecking H&H this afternoon to verify stability. I agree with monitor overnight, and resuming his Eliquis while he is in the hospital. Visit Charges Inpatient E&M: 01481 Subs Hosp L3
[2024-12-07] MEDS: Folic Acid 1 MG in 0.9% Normal Saline (50mL Bag) 50 ML 200 MG IV (20:49)
[2024-12-07] MEDS: Ferrous Sulfate 325 MG Tablet PO (20:57)
[2024-12-07] MEDS: APIXABAN 2.5 MG TABLET (WCH) PO (20:58)
[2024-12-07] MEDS: traZODone 50 MG Tablet 25 MG PO (20:58)
[2024-12-08] VITALS: BP 105/60; PULSE 47; RESP 16; TEMP 36.7; O2SAT 97
[2024-12-08 03:45] VITALS: BP 102/73; PULSE 64; RESP 18; TEMP 36.6; O2SAT 94
[2024-12-08 07:23] LABS: Hematocrit 25.4 % (40-54); Hemoglobin 8.5 g/dL (13.0-16.5); Mean Corp Hgb Conc 33.5 g/dL (32-36); Mean Corpuscular Hgb 38.5 pg (27.0-32.0); Mean Corpuscular Volume 114.9 fL (80-94); Mean Platelet Vol. 10.1 fl (6.2-12.0); Platelet Count 199 K/mm3 (150-450); RBC Distribution Width SD 62.4 fl (35.1-43.9); Red Blood Count 2.21 M/mm3 (4.6-6.2); White Blood Count 11.5 K/mm3 (4.4-11.0)
[2024-12-08 07:46] LABS: Anion Gap 10 (5-15); BUN 28 mg/dL (4-19); BUN/Creat Ratio 11.8 RATIO (10-20); Calcium,Total 7.7 mg/dL (7.6-11.0); Carbon Dioxide 21.2 mmol/L (21.0-32.0); Chloride 110 mmol/L (98-108); Creatinine, Serum 2.37 mg/dL (0.70-1.20); EST Glomerular Filtration Rate 27 (>60); Estimated Creatinine Clearance 18.61 ml/min (50-250); Glucose 84 mg/dL (70-99); Potassium 3.3 mmol/L (3.3-5.1); Sodium Level 141 mmol/L (133-145)
[2024-12-08 08:59] VITALS: BP 117/72; PULSE 74; RESP 17; TEMP 36.4; O2SAT 93
[2024-12-08] MEDS: dilTIAZem CD 120 MG Capsule PO (09:04)
[2024-12-08] MEDS: Finasteride 5 MG Tablet PO (09:04)
[2024-12-08] MEDS: APIXABAN 2.5 MG TABLET (WCH) PO ×2 (09:04→21:23)
[2024-12-08] MEDS: Loratadine 10 MG Tablet PO (09:04)
[2024-12-08] MEDS: Tamsulosin HCl 0.4 MG Capsule PO ×2 (09:04→21:24)
[2024-12-08] MEDS: Amiodarone 200 MG Tablet 100 MG PO ×2 (09:04→21:22)
[2024-12-08] MEDS: Isosorbide Mononitrate 60 MG Tablet PO (09:04)
[2024-12-08] MEDS: Pantoprazole Sodium 40 MG in 0.9% Normal Saline (100mL MB+) 100 ML 330 MG IV ×2 (09:10→21:20)
[2024-12-08] MEDS: Folic Acid 1 MG in 0.9% Normal Saline (50mL Bag) 50 ML 200 MG IV (09:58)
--- NOTE | 2024-12-08 13:32 | CASEMGMT ---
RN CM into pt room, pt is agreeable to [facility]. Discussed SN, PT and OT. Pt states he has had [facility] in the past and would like them again. Pt denies need for a list of other options. TC to intake at [facility], referral left via vm. Will await decision to accept. Pt aware that we will not have an answer until Tuesday.
[2024-12-08 13:58] VITALS: BP 92/58; PULSE 68; RESP 17; TEMP 36.7; O2SAT 94
--- NOTE | 2024-12-08 17:34 | PCM.PN.HOSP ---
Reason for Visit Reason for Visit: Diagnoses Essential (primary) hypertension (12/04/24) Pulmonary hypertension, unspecified (12/04/24) Other persistent atrial fibrillation (12/04/24) Acute on chronic combined systolic (congestive) and diastolic (congestive) heart failure (12/04/24) Heart failure, unspecified (12/04/24) Hemorrhage of anus and rectum (12/04/24) Presence of coronary angioplasty implant and graft (12/04/24) Subjective Subjective Patient had a little bit of the reflux-like symptoms earlier, after receiving fluids did cause a little bit of shortness of breath, denies any abdominal pain at this time and has had no further bowel movements Objective Data Objective Data Vital Signs: Vital Signs Temp Pulse Resp BP Pulse Ox O2 Del Method O2 Flow Rate 98.0 F 68 17 92/58 L 94 Nasal Cannula 2 12/08/24 13:58 12/08/24 13:58 12/08/24 13:58 12/08/24 13:58 12/08/24 13:58 12/08/24 14:00 12/08/24 14:00 Oxygen Flow Rate (L/min) 2 Oxygen Delivery Method Nasal Cannula Weight: 55.7 kg Body Mass Index (BMI) 18.6 Intake & Output: Intake and Output for Last 24 Hours 12/06/24 12/07/24 12/08/24 23:59 23:59 23:59 Intake Total 970 / 970 1090.2 / 1090.2 1400.2 / 1400.2 Output Total 200 / 200 0 / 0 Balance 770 / 770 1090.2 / 1090.2 1400.2 / 1400.2 Lab / Micro Data 12/08/24 06:05 12/08/24 06:05 Labs: Laboratory Results - last 24 hr 12/08/24 06:05: WBC 11.5 H, RBC 2.21 L, Hgb 8.5 L, Hct 25.4 L, MCV 114.9 H, MCH 38.5 H, MCHC 33.5, RDW Std Deviation 62.4 H, RDW Coeff of Pablo 15.0 H, Plt Count 199, MPV 10.1, Sodium 141, Potassium 3.3, Chloride 110 H, Carbon Dioxide 21.2, Anion Gap 10, BUN 28 H, Creatinine 2.37 H, Estim Creat Clear Calc 18.61 L, Est GFR (MDRD) Non-Af 27 L, BUN/Creatinine Ratio 11.8, Glucose 84, Calcium 7.7 Physical Exam Narrative General: Alert, oriented, no apparent distress HEENT: Atraumatic,history of cleft lip Eyes: Anicteric, normal conjunctiva, extraocular movements grossly intact Neck: Supple Respiratory: Slight increased respiratory effort with some faint crackles at the bases Cardiovascular: Irregularly irregular GI: Soft, nontender, nondistended Extremities: No edema Musculoskeletal: Moving all extremities Neuro: No overt focal neurological deficits Skin: No rashes appreciated Psych: Cooperative Assessment & Plan Assessment/Plan (1) Bright red blood per rectum: PLAN: Plan # Bright red blood per rectum - Patient reports bright red blood per rectum that started this morning without abdominal pain, did have more rectal bleeding in the ED - Discussed with Dr. Hodges, presently vitally stable and normal hemoglobin however given ongoing bleeding patient will benefit from observation with further determination on need for endoscopies pending clinical progress -okay for clear liquid diet for now - GI consult - Given patient's reports of some recent epigastric pain and his concern that he may have an ulcer fill is reasonable to place on IV PPI for now - Hold Eliquis, presently gek-maaz-yxrkgvfwmhl bleed so this is not been reversed - Trend H&H -12/05: Hemoglobin remained fairly stable but patient has had more episodes of blood per rectum, GI consulted, continue to monitor -12/06: Patient for endoscopy today with gastroenterology, case discussed with GI -12/07: Hemoglobin 9.4, colonoscopy with possibly some areas that looked like there was bleeding stigmata but otherwise only stool seen in colon no prep was fair. Recommended for stool softeners twice a day and no repeat colonoscopy for age. 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 This a.m. patient with liquid stool the second of which had blood, unclear if this is leftover or new however throughout the day he has not had any further bowel movements, rechecking H&H this afternoon to verify stability, will likely monitor overnight, will need to discuss optimal timing of resuming Eliquis with gastroenterology -12/08: Discussed with GI yesterday, patient was restarted on Eliquis last night, has not had further bleeding, did have a slight downtrend in hemoglobin however patient was given IV fluids and has been having multiple blood draws, continue to monitor for bleeding and for any further drops in hemoglobin #Hypertension - Given concern for active GI bleed we will hold home antihypertensives at this point, patient remains hypertensive can begin to add them back or if bleeding resolves will resume -12/05: Continued on amiodarone, Imdur resumed and increased, diltiazem resumed given stability, has had some more blood per rectum however hemoglobin is stable -12/06: Blood pressure maintaining, continue medication adjustments especially given resolution of patient's chest discomfort -12/07: Patient's BP on the low side, suspect that some of this is an activity and some of this is due to dehydration from being on a minimal diet and then having colon prep and large stool/water output, will give IV fluids, patient resting comfortably with no other alarming signs or symptoms, monitor BP -12/08: Patient placed on 2 L after fluids due to some shortness of breath, does have some crackles at the bases, will give Lasix, he received fluids as he had had a lot more of stool output/diarrhea for his colonoscopy with very poor p.o. intake and seemed volume down the patient is very tenuous volume status, we monitored him overnight Chronic medical problems and/or problems not being actively addressed during today's encounter: # Elevated troponin -12/05: Overnight patient complained of some chest discomfort so troponin obtained with the first 1 being 110, second at 156, and third 272. Cardiology contacted, it was recommended to continue amiodarone and to optimize patient's other medications, diltiazem restarted, Imdur restarted at a higher dose than previously. Patient unlikely to clear troponins easily due to his stage IV CKD at the time of my evaluation patient reported that he had a kind of tight feeling in left side of chest only when he took a big inspiration specifically with incentive spirometer and it was better when he did not do that, unclear significance of this but patient is hemodynamically stable and being monitored on telemetry, appreciate cardiology recommendations. Did discuss with GI regarding possible need to go back on anticoagulation but continued bleeding, GI consult -12/06: No further chest pain today or overnight with adjustment in medications, continue these medications #Atrial Fibrillation -Continue amiodarone - Holding Eliquis -12/05: Patient on amiodarone, Imdur increased, diltiazem restarted given he has remained hemodynamically stable Amio developed chest pain -12/06: Continue current medications, Eliquis on hold due to the above # CKD stage IV -Appears to be at baseline -Avoid nephrotoxic agents -Daily BMPs -12/05: Creatinine 2.54 today, is down from previous, continue current measures -12/06: Continue to improve with current measures, continue to avoid nephrotoxic agents #Chronic BPH with obstruction -Continue home medications #CAD -with previous stent placement for history #Hypothyroidism -Continue Synthroid #ALVARADO - Following with pulmonology, has not yet been started on home PAP therapy # Moderate pulmonary hypertension - Echo 03/21/2024 with PASP of 64, enlarged left atrium, EF of 53% with normal LV size #DVT ppx: SCDs Emy Willard MD Time spent in the patient's overall evaluation,decision-making process, review of diagnostic data, adjustment of management, discussion with other providers, nursing nursing and ancillary staff involved in patient's care documentation, 37 Minutes Charges/Coding Visit Charges Inpatient E&M: 14259 Subs Hosp L2
[2024-12-08 19:44] VITALS: BP 96/61; PULSE 67; RESP 18; TEMP 36.8; O2SAT 97
[2024-12-08 21:17] VITALS: BP 110/67; PULSE 74; RESP 18; TEMP 36.6; O2SAT 96
[2024-12-08] MEDS: 0.9% Saline Lock 10 ML Syringe IV (21:21)
[2024-12-08] MEDS: traZODone 50 MG Tablet 25 MG PO (21:22)
[2024-12-08] MEDS: Ferrous Sulfate 325 MG Tablet PO (21:24)
[2024-12-08] MEDS: MENTHOL 226.8 GM JAR 1 APPLIC TOPICAL (21:26)
[2024-12-09] VITALS (28 sets, daily range): BP systolic 95–139; BP diastolic 42–77; PULSE 42–78; RESP 15–27; TEMP 36.4–37.2; O2SAT 87–97; BMI 19.9
--- NOTE | 2024-12-09 02:46 | EKG12_ITS ---
Test Reason : CP Blood Pressure : */* mmHG Vent. Rate : 73 BPM Atrial Rate : 153 BPM P-R Int : * ms QRS Dur : 168 ms QT Int : 474 ms P-R-T Axes : 81 12 -23 degrees QTcB Int : 522 ms Critical Test Result: AV Block Sinus tachycardia with A-V dissociation and Wide QRS rhythm with frequent Premature ventricular complexes Right bundle branch block Abnormal ECG Confirmed by Indio Robin ([id number]), manuscript editor CIPRIANO GATES ([id number]) on 12/10/2024 1:20:40 PM Referred By: DR Rivera Confirmed By: Indio Robin
[2024-12-09] MEDS: Acetaminophen 325 MG Tablet 650 MG PO (02:48)
[2024-12-09] MEDS: Nitroglycerin (INPATIENT USE) 0.4 MG TAB.SUBL SL (03:42)
[2024-12-09 03:55] LABS: Hematocrit 26.5 % (40-54); Mean Corpuscular Hgb 39.3 pg (27.0-32.0); Mean Corpuscular Volume 115.7 fL (80-94); Mean Platelet Vol. 10.1 fl (6.2-12.0); POSITIVE MORPHOLOGY YES; Platelet Count 207 K/mm3 (150-450); RBC Distribution Width CV 15.7 % (11.6-14.6); RBC Distribution Width SD 66.1 fl (35.1-43.9); Red Blood Count 2.29 M/mm3 (4.6-6.2)
[2024-12-09 04:15] LABS: Anion Gap 10 (5-15); BUN 29 mg/dL (4-19); BUN/Creat Ratio 11.7 RATIO (10-20); Carbon Dioxide 21.7 mmol/L (21.0-32.0); Chloride 109 mmol/L (98-108); Creatinine, Serum 2.49 mg/dL (0.70-1.20); EST Glomerular Filtration Rate 25 (>60); Estimated Creatinine Clearance 17.71 ml/min (50-250); Glucose 92 mg/dL (70-99); Potassium 3.4 mmol/L (3.3-5.1); Sodium Level 140 mmol/L (133-145)
[2024-12-09 04:32] LABS: Troponin T High Sensitivity 1718 ng/L (<=22)
[2024-12-09 04:33] LABS: Scan Indicated on CBC? Y/N YES- FLAGS NOTED
--- NOTE | 2024-12-09 05:40 | NURSING ---
Attempted to call both patient contacts at this time to update on patient status. No answer from Olivia Ortez.
[2024-12-09] MEDS: Nitroglycerin Infusion 250 ML 3 MG CONT INF (05:45)
[2024-12-09] MEDS: 0.9% Saline Lock 10 ML Syringe IV (05:45)
[2024-12-09] MEDS: HEPARIN/D5w 25,000 UNITS 25,000 UNITS/250 ML IV.SOLN. 7 UNITS CONT INF (05:45)
--- NOTE | 2024-12-09 05:49 | NURSING ---
Received call back from pt Olivia at this time. Updated her that pt was moved to the ICU.
[2024-12-09] MEDS: Levothyroxine 50 MCG Tablet PO (06:18)
--- NOTE | 2024-12-09 06:27 | RAD_ITS ---
PROCEDURE: CHEST 1 VIEW 12/09/2024 REASON FOR EXAM: DYSPNEA TECHNIQUE: Frontal view of the chest. COMPARISON: Chest x-ray dated 12/04/2024. FINDINGS: The cardiac silhouette is enlarged. There is increased pulmonary vascular congestion. There is increased opacity at the lung bases bilaterally. These findings are most compatible with acute CHF/pulmonary edema. Underlying infectious process could have similar appearance. Post kyphoplasty changes seen within the spine. RAD/Chest 1 View IMPRESSION: Acute CHF pulmonary edema, new since prior examination. Follow-up to clearing is recommended.. Reading Location: [id number]
--- NOTE | 2024-12-09 06:39 | PN.HOSP_ITS ---
Hospitalist Note I was informed by DIRECTOR OF INSTRUCTIONAL TECHNOLOGY patient developed chest pain that was 2 out of 10 that was treated with sublingual nitroglycerin. His subsequent troponin returned greater than 1700 pg/mL with cardiology then contacted who recommended patient be transferred to ICU started on heparin/nitro drip with plan for LHC on Tuesday.
[2024-12-09 06:44] LABS: Pro- Brain NATRIURETIC PEPTIDE 17972 pg/mL (<=1800)
[2024-12-09 06:59] LABS: Troponin T High Sens 2 HR 1562 ng/L (<=22)
--- NOTE | 2024-12-09 07:34 | PN.HOSP_ITS ---
Reason for Visit Reason for Visit: Diagnoses Essential (primary) hypertension (12/04/24) Pulmonary hypertension, unspecified (12/04/24) Other persistent atrial fibrillation (12/04/24) Acute on chronic combined systolic (congestive) and diastolic (congestive) heart failure (12/04/24) Heart failure, unspecified (12/04/24) Hemorrhage of anus and rectum (12/04/24) Presence of coronary angioplasty implant and graft (12/04/24) Subjective Subjective Patient seen at bedside, at time my exam he is not having any chest pain, a little short of breath, no bowel movement since Tuesday but denies any abdominal pain, no more bright red blood per rectum since that time, reports urinating fine Objective Data Objective Data Vital Signs: Vital Signs Temp Pulse Resp BP Pulse Ox O2 Del Method O2 Flow Rate 99.0 F 56 L 22 H 113/77 97 Nasal Cannula 3 12/09/24 05:56 12/09/24 07:00 12/09/24 07:00 12/09/24 07:00 12/09/24 07:00 12/09/24 07:00 12/09/24 07:00 Oxygen Flow Rate (L/min) 3 Oxygen Delivery Method Nasal Cannula Weight: 59.7 kg Body Mass Index (BMI) 19.9 Intake & Output: Intake and Output for Last 24 Hours 12/07/24 12/08/24 12/09/24 23:59 23:59 23:59 Intake Total 1090.2 / 1090.2 1750.2 / 1750.2 Output Total 0 / 0 500 / 500 300 / 300 Balance 1090.2 / 1090.2 1250.2 / 1250.2 -300 / -300 Lab / Micro Data 12/09/24 03:48 12/09/24 03:48 Labs: Laboratory Results - last 24 hr 12/08/24 06:05: Sodium 141, Potassium 3.3, Chloride 110 H, Carbon Dioxide 21.2, Anion Gap 10, BUN 28 H, Creatinine 2.37 H, Estim Creat Clear Calc 18.61 L, Est GFR (MDRD) Non-Af 27 L, BUN/Creatinine Ratio 11.8, Glucose 84, Calcium 7.7 12/09/24 03:48: WBC 11.0, RBC 2.29 L, Hgb 9.0 L, Hct 26.5 L, MCV 115.7 H, MCH 39.3 H, MCHC 34.0, RDW Std Deviation 66.1 H, RDW Coeff of Pablo 15.7 H, Plt Count 207, MPV 10.1, Sodium 140, Potassium 3.4, Chloride 109 H, Carbon Dioxide 21.7, Anion Gap 10, BUN 29 H, Creatinine 2.49 H, Estim Creat Clear Calc 17.71 L, Est GFR (MDRD) Non-Af 25 L, BUN/Creatinine Ratio 11.7, Glucose 92, Calcium 8.0, T roponin T High Sens 1718 H* D 12/09/24 05:48: Troponin T Hi Sens 2 Hr 1562 H*, [place] [address] H Radiography Diagnostic Testing: Radiology Impression Chest X-Ray 12/09/24 06:27 IMPRESSION: Acute CHF pulmonary edema, new since prior examination. Follow-up to clearing is recommended.. Reading Location: [facility] Physical Exam Narrative General: Alert, oriented, no apparent distress HEENT: Atraumatic,history of cleft lip Eyes: Anicteric, normal conjunctiva, extraocular movements grossly intact Neck: Supple Respiratory: Slight increased respiratory effort with some crackles at the bases Cardiovascular: Irregularly irregular GI: Soft, nontender, nondistended Extremities: No edema Musculoskeletal: Moving all extremities Neuro: No overt focal neurological deficits Skin: No rashes appreciated Psych: Cooperative Assessment & Plan Assessment/Plan (1) Bright red blood per rectum: PLAN: Plan # Type I versus type II NSTEMI -Patient had some chest pain again overnight that was moderate in severity but troponin was 1700 -cardiology contacted and recommended sending patient to the ICU for nitro drip and heparin drip with plans for possible heart cath on Tuesday -He did have chest pain earlier on in his admission with very mild elevation of troponins that completely resolved with adjustment in his medications, given stability further workup was not pursued at this time however in light of this new episode with higher elevations in troponin patient will require further workup -Of note second trop did downtrend to 1500 -Initial thought was possible heart cath in the a.m. however given pain has improved and there is risk of contrast-induced nephropathy worsening his renal function it was recommended patient undergo Trudi scan instead -This has been ordered -Additionally echo ordered #Acute exacerbation of chronic heart failure with preserved ejection fraction - Patient in ICU as above, do suspect this in part was due to patient receiving IV fluids given his minimal p.o. intake and significant diarrhea in preparation for colonoscopy with suboptimal blood pressure requiring IV fluids, patient was stable yesterday with plans for IV Lasix this was held due to suboptimal blood pressures -proBNP [id number] -CXR suggestive of fluid overload -IV lasix -Last echo with PASP of 64 and EF of 53, documentation in chart lists history of heart failure with preserved ejection fraction -Repeat echo ordered -Daily weights, I's and O's -heart healthy diet # CKD stage IV -Appears to be at baseline -Avoid nephrotoxic agents -Daily BMPs -12/05: Creatinine 2.54 today, is down from previous, continue current measures -12/06: Continue to improve with current measures, continue to avoid nephrotoxic agents -12/09: Creatinine up trended to 2.49, given patient's multiple acute problems we will need to manage this closely, will consult nephrology given uptrending creatinine with need for diuresis and possible heart cath if stress test abnormal. It is possible this could be cardiorenal and diuresis will improve, repeat BMP in a.m. # Bright red blood per rectum - Patient reports bright red blood per rectum that started this morning without abdominal pain, did have more rectal bleeding in the ED - Discussed with Dr. Hodges, presently vitally stable and normal hemoglobin however given ongoing bleeding patient will benefit from observation with further determination on need for endoscopies pending clinical progress -okay for clear liquid diet for now - GI consult - Given patient's reports of some recent epigastric pain and his concern that he may have an ulcer fill is reasonable to place on IV PPI for now - Hold Eliquis, presently [id number] bleed so this is not been reversed - Trend H&H -12/05: Hemoglobin remained fairly stable but patient has had more episodes of blood per rectum, GI consulted, continue to monitor -12/06: Patient for endoscopy today with gastroenterology, case discussed with GI -12/07: Hemoglobin 9.4, colonoscopy with possibly some areas that looked like there was bleeding stigmata but otherwise only stool seen in colon no prep was fair. Recommended for stool softeners twice a day and no repeat colonoscopy for age. 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 This a.m. patient with liquid stool the second of which had blood, unclear if this is leftover or new however throughout the day he has not had any further bowel movements, rechecking H&H this afternoon to verify stability, will likely monitor overnight, will need to discuss optimal timing of resuming Eliquis with gastroenterology -12/08: Discussed with GI yesterday, patient was restarted on Eliquis last night, has not had further bleeding, did have a slight downtrend in hemoglobin however patient was given IV fluids and has been having multiple blood draws, continue to monitor for bleeding and for any further drops in hemoglobin -12/09: Hemoglobin stable this a.m., patient had to be moved to the ICU and placed on heparin drip as above, continue to monitor for any further bleeding #Hypertension - Given concern for active GI bleed we will hold home antihypertensives at this point, patient remains hypertensive can begin to add them back or if bleeding resolves will resume -12/05: Continued on amiodarone, Imdur resumed and increased, diltiazem resumed given stability, has had some more blood per rectum however hemoglobin is stable -12/06: Blood pressure maintaining, continue medication adjustments especially given resolution of patient's chest discomfort -12/07: Patient's BP on the low side, suspect that some of this is an activity and some of this is due to dehydration from being on a minimal diet and then having colon prep and large stool/water output, will give IV fluids, patient resting comfortably with no other alarming signs or symptoms, monitor BP -12/08: Patient placed on 2 L after fluids due to some shortness of breath, does have some crackles at the bases, will give Lasix, he received fluids as he had had a lot more of stool output/diarrhea for his colonoscopy with very poor p.o. intake and seemed volume down the patient is very tenuous volume status, we monitored him overnight -12/09: Patient started on nitro drip due to chest pain and elevated troponin admitted to the ICU # Elevated troponin -12/05: Overnight patient complained of some chest discomfort so troponin obtained with the first 1 being 110, second at 156, and third 272. Cardiology contacted, it was recommended to continue amiodarone and to optimize patient's other medications, diltiazem restarted, Imdur restarted at a higher dose than previously. Patient unlikely to clear troponins easily due to his stage IV CKD at the time of my evaluation patient reported that he had a kind of tight feeling in left side of chest only when he took a big inspiration specifically with incentive spirometer and it was better when he did not do that, unclear significance of this but patient is hemodynamically stable and being monitored on telemetry, appreciate cardiology recommendations. Did discuss with GI regarding possible need to go back on anticoagulation but continued bleeding, GI consult -12/06: No further chest pain today or overnight with adjustment in medications, continue these medications -12/09: New chest pain and elevation as above #Atrial Fibrillation -Continue amiodarone - Holding Eliquis -12/05: Patient on amiodarone, Imdur increased, diltiazem restarted given he has remained hemodynamically stable Amio developed chest pain -12/06: Continue current medications, Eliquis on hold due to the above -12/09: Patient now on heparin drip, continues to have abnormal rhythm multiple PVCs and a fib/flutter/underlying arrhythmia #Chronic BPH with obstruction -Continue home medications -12/09: Will need to verify patient urinating given minimal reported output and I's and O's, unclear how accurate this was able to be #CAD -with previous stent placement for history -12/09: Heparin drip, nitro drip, it does not appear patient is on a statin at home for unclear reasons, will start statin given the above we will check lipid panel #Hypothyroidism -Continue Synthroid -12/09: TSH on 12/06 was 2.72, within normal limits #ALVARADO - Following with pulmonology, has not yet been started on home PAP therapy -12/09: If patient has any worsening respiratory distress, placed on BiPAP #DVT ppx: ELVAs Emy Willard MD Time spent in the patient's overall evaluation,decision-making process, review of diagnostic data, adjustment of management, discussion with other providers, nursing nursing and ancillary staff involved in patient's care documentation, 53 Minutes Charges/Coding Visit Charges Inpatient E&M: [id number] [place] [id number]
--- NOTE | 2024-12-09 07:34 | EKG12_ITS ---
Test Reason : EKG CHANGE Blood Pressure : */* mmHG Vent. Rate : 66 BPM Atrial Rate : * BPM P-R Int : * ms QRS Dur : 166 ms QT Int : 474 ms P-R-T Axes : * 3 -29 degrees QTcB Int : 496 ms Right bundle branch block sinus tachycardia, with PVC's and high grade AV block Confirmed by Indio Robin ([id number]), video news editor MADISON MONTOYA ([id number]) on 12/17/2024 9:08:21 AM Referred By: LIZ Confirmed By: Indio Robin
--- NOTE | 2024-12-09 07:44 | ECHOD_ITS ---
Reason For Study Reason For Study: CHF Procedure This was a 2D Doppler, Color Flow transthoracic echocardiogram. Exam performed portable in ICU/CCU. Left Ventricle Normal LV size. Left ventricular systolic function is normal. The left ventricular ejection fraction is 60 %. No regional wall motion abnormalities noted. Right Ventricle Normal RV size. Normal systolic function. Atria The left atrium is severely enlarged. The right atrium is moderately enlarged. Probable chiari network. Mitral Valve Bileaflet diffuse mitral valve thickening. Moderate (2+) eccentric mitral valve insufficiency. Tricuspid Valve Normal tricuspid valve. Moderately severe (3+) tricuspid valve insufficiency. Severe pulmonary hypertension. Aortic Valve Trisinus/trileaflet aortic valve. Mild (1+) eccentric aortic valve insufficiency. Pulmonic Valve Normal pulmonic valve. Mild (1+) pulmonic valve insufficiency. Great Vessels Normal aortic root. The pulmonary artery is normal size. The inferior vena cava is dilated. Pericardium/Pleural Small (<1.0 cm) pericardial effusion. MMode/2D Measurements & Calculations LVIDd: 5.6 cm IVSd: 1.4 cm Ao root diam: 4.1 cm LVIDs: 3.5 cm LVPWd: 1.1 cm FS: 37.2 % LAV(MOD-bp): 163.9 ml LVAd ap4: 31.5 cm2 SV(MOD-sp4): 65.2 ml LAV(MOD-bp) Indexed: 96.0 ml/m2 LVLd ap4: 7.5 cm SI(MOD-sp4): 38.2 ml/m2 LAV(MOD-sp2): 162.3 ml EDV(MOD-sp4): 106.5 ml LAV(MOD-sp4): 154.4 ml EDV(sp4-el): 112.0 ml LVAs ap4: 17.8 cm2 LVLs ap4: 6.7 cm ESV(MOD-sp4): 41.3 ml ESV(sp4-el): 40.4 ml EF(MOD-sp4): 61.2 % EF(sp4-el): 63.9 % SV(sp4-el): 71.6 ml LA A4 area: 39.2 cm2 LA dimension(2D): 5.9 cm RA A4 area: 27.4 cm2 TAPSE: 1.9 cm Time Measurements MV dec time: 0.19 sec Doppler Measurements & Calculations MV E max andrew: 101.9 cm/sec Lat Peak E' Andrew: 15.7 cm/sec Med Peak E' Andrew: 7.3 cm/sec MV A max andrew: 34.9 cm/sec E/E' lat: 6.5 E/E' med: 14.0 MV E/A: 2.9 Ao V2 max: 169.9 cm/sec AI max andrew: 444.8 cm/sec LV V1 max: 87.5 cm/sec Ao max P.6 mmHg AI max P.3 mmHg LV V1 max P.1 mmHg AI dec slope: 193.8 cm/sec2 AI P1/2t: 672.2 msec PA V2 max: 75.5 cm/sec TR max andrew: 473.4 cm/sec TR max P.6 mmHg ECHO/Echo Complete Interpretation Summary Normal LV size. Left ventricular systolic function is normal. The left ventricular ejection fraction is 60 %. The left atrium is severely enlarged. Moderately severe (3+) tricuspid valve insufficiency. Severe pulmonary hypertension. Ordering Physician: Emy Willard Referring Physician: PRASANNA MÉNDEZ Performed By: Shakila Bran RDCS
[2024-12-09] MEDS: Pantoprazole Sodium 40 MG in 0.9% Normal Saline (100mL MB+) 100 ML 330 MG IV ×2 (08:21→21:02)
[2024-12-09] MEDS: Furosemide 20 MG/2 ML VIAL IV ×3 (08:23→17:25)
[2024-12-09] MEDS: dilTIAZem CD 120 MG Capsule PO (08:42)
[2024-12-09] MEDS: Amiodarone 200 MG Tablet 100 MG PO (08:42)
[2024-12-09] MEDS: Tamsulosin HCl 0.4 MG Capsule PO ×2 (08:43→21:03)
[2024-12-09] MEDS: Finasteride 5 MG Tablet PO (08:43)
[2024-12-09] MEDS: Senna/Docusate Sodium 1 Tablet 2 TABLET PO (08:44)
[2024-12-09] MEDS: Folic Acid 1 MG in 0.9% Normal Saline (50mL Bag) 50 ML 200 MG IV (11:37)
[2024-12-09 12:09] LABS: Partial Thromboplast Time 55.1 Seconds (24.1-36.2)
--- NOTE | 2024-12-09 13:49 | CON.PCM.CA_ITS ---
<Statement entered by Aidan Soliz MD - 12/09/24 13:56> Pt seen & evaluated w/SIRIA. I personally interviewed & exam the pt. I was involved in all aspects of pt's orders, interpretation of results & treatment Assessment & Plan Assessment/Plan (1) CKD (chronic kidney disease) stage 4, GFR 15-29 ml/min: (2) COPD (chronic obstructive pulmonary disease): (3) Persistent atrial fibrillation: (4) Coronary artery disease: (5) Anemia due to chronic kidney disease: QUALIFIERS: Chronic kidney disease stage: stage 3 (moderate) C hronic kidney disease stage 3 subtype: stage 3b (GFR 30-44) Qualified Code(s): N18.32 - Chronic kidney disease, stage 3b; D63.1 - Anemia in chronic kidney disease (6) History of coronary artery stent placement: (7) Elevated troponin: PLAN: 84-year-old patient with multiple medical comorbidities History of hypertension History of CAD had a PCI and stent of the left anterior descending in 1999 using a bare-metal stent to the proximal LAD. Hypertension Pulm hypertension He has a acute on chronic combined systolic and diastolic heart failure Previous echocardiogram EF in the range of around 53%. No significant valvular abnormality noted. Patient had symptoms of chest pain over the night with the troponin level elevated to 272 And I transferred the patient to ICU for monitor. He has persistent atrial fibrillation and his anticoagulation has been on hold. Recently patient had a GI bleed this is possible secondary to end-stage renal disease he had CKD. And he had been seen and followed previously by the field research assistant as well as the zigzag elastic attacher. Cardiac care plan; Patient is stable currently he does not have any further episode of chest pain We will resume medication which is long-acting nitrate. Due to his history of PCI and stent in 1999 and for the proximal LAD I would recommend to evaluate him with Lexiscan sestamibi Will try to avoid the cardiac catheterization due to the risk of contrast- induced nephropathy and worsening of his renal function. Cardiac care plan discussed in detail with the intensive care unit staff as well as with the patient. He will be seen on follow-up by his primary vp corporate partnerships Dr. Schwarz in a.m. HPI Consult Data Date of Consult: 12/09/24 HPI Narrative Reason for Consultation: Chest pain with elevated troponin HPI Narrative: RICHIE HANSEN, is a 84 M who presents [facility] Medical History History of atrial fibrillation COPD (chronic obstructive pulmonary disease) with emphysema CHF (congestive heart failure) Hypoxia Chronic kidney disease Chronic anticoagulation Acute dyspnea Acute kidney injury Hypotension Abnormal abdominal ultrasound Persistent atrial fibrillation Hearing loss, left Hearing loss, right Anxiety Chronic pain Rheumatoid arthritis COPD (chronic obstructive pulmonary disease) Irregular heart beat Hypertension Hypothyroidism Hiatal hernia Acute constipation Acute exacerbation of chronic low back pain Wears glasses Thyroid disease Ambulates with cane Arthritis History of renal disease Anemia High cholesterol Easy bruising Excessive bleeding History of leukemia Back pain Difficulty chewing History of diverticulitis Gastric reflux Sleep apnea History of pain when walking History of edema History of echocardiogram History of stress test Cardiology follow-up encounter History of heart attack Nausea and vomiting Chronic anemia Diarrhea Colitis Sleep apnea Acute kidney injury superimposed on chronic kidney disease On amiodarone therapy Elevated LFTs Thoracic aortic aneurysm (TAA) Chronic heart failure with preserved ejection fraction (HFpEF) Nonrheumatic mitral (valve) insufficiency Atypical atrial flutter (12/2020) Elevated liver enzymes Debility Dysphagia Osteoarthritis History of colon polyps Cancer Kidney stones Kidney disease Non-smoker CPAP (continuous positive airway pressure) dependence Atrial fibrillation Myocardial infarct Chronic renal insufficiency Acute gastrointestinal bleeding Chronic kidney disease Benign prostatic hyperplasia Stage 3b chronic kidney disease GI bleed (2012) Non-rheumatic tricuspid valve insufficiency Secondary pulmonary arterial hypertension Essential (primary) hypertension BPH (benign prostatic hyperplasia) History of hyperthyroidism Paroxysmal atrial fibrillation 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 heart disease of [place] coronary artery without angina pectoris HLD (hyperlipidemia) Home Medications ?Medication ?Instructions ?Recorded ?Last Taken ?Type tamsulosin 0.4 mg capsule 0.4 mg PO BID PROSTATE 11/1812/03/24 History vitamin B complex 1 cap PO BID SUPPLEMENT 11/1712/03/24 History ascorbic acid (vitamin C) 500 mg 500 mg PO BID SUPPLEM ENT 07/20/22 12/03/24 History tablet finasteride 5 mg tablet 5 mg PO DAILY PROSTATE 08/0512/03/24 History cholecalciferol (vitamin D3) 25 1,000 unit PO QHS SUPP LEMENT 02/19/23 12/03/24 History mcg (1,000 unit) capsule (Vitamin D3) empagliflozin 10 mg tablet 10 mg PO DAILY DIABTETES #0 tabs 07/22/23 12/03/24 Rx (Jardiance) isosorbide mononitrate 30 mg 30 mg PO DAILY CHEST PAIN 02/28/24 12/03/24 History tablet,extended release 24 hr magnesium chloride 64 mg 64 mg PO BID SUPPLEMENT 10/2212/03/24 History (magnesium chloride) tablet,delayed release (Mag 64) trazodone 50 mg tablet 25 mg PO QHS INSOMNIA 12/03/24 History amiodarone 100 mg tablet 100 mg PO BID HEART #180 ta bs 02/29/24 12/03/24 Rx ferrous sulfate 325 mg (65 mg 325 mg PO QHS ANEMIA 12/03/24 History iron) tablet (Feosol) levothyroxine 50 mcg tablet 50 mcg PO DAILY THYROID 12/03/24 History apixaban 2.5 mg tablet (Eliquis) 2.5 mg PO BID Anticoa gulant #60 03/24/24 12/03/24 Rx tabs diltiazem HCl 120 mg 120 mg PO DAILY heart rate 3 0 days 04/25/24 12/03/24 Rx capsule,extended release 24 hr #30 caps furosemide 20 mg tablet 20 mg PO BID fluid overload 08/28/24 12/03/24 History nitroglycerin 0.4 mg sublingual 0.4 mg sublingual Q5M PRN 08/28/24 Unknown Rx tablet Cardiac/Chest Pain #25 tabs pantoprazole 20 mg tablet,delayed 20 mg PO DAILY Gerd 08/28/24 12/03/24 History release potassium chloride 20 mEq 20 meq PO BID supplement 12/03/24 History tablet,extended release(part/cryst) acetaminophen 500 mg tablet 500 mg PO TID PRN pain 04/2212/03/24 History (Acetaminophen Extra Strength) albuterol sulfate 2.5 mg/0.5 mL 2.5 mg inhalation Q6H PRN pain 12/04/24 Unknown History solution for nebulization baclofen 10 mg tablet 5 mg PO TID PRN muscle pain 12/04/24 12/03/24 History calcium carbonate (Antacid 400 mg PO Q6H Gerd 12/04/24 12/03/24 History (calcium carbonate)) calcium citrate 200 mg PO BID SUPPLEMENT 04/2212/03/24 History clonidine HCl 0.1 mg tablet 0.05 - 0.1 mg PO DAILY PRN BP 12/04/24 Unknown History famotidine 20 mg tablet 20 mg PO BID Cardiac stent 0 12/04/24 12/03/24 History hydralazine 50 mg tablet 50 mg PO 4X/DAY B/P 12/04/24 12/03/24 History hydromorphone 2 mg tablet 1 - 2 mg PO QHS CHEST PAIN 0 12/04/24 12/03/24 History lidocaine 5 % topical patch 1 patch topical Q24H Pain 12/04/24 12/03/24 History (DermacinRx Lidocan) loratadine 10 mg tablet 10 mg PO DAILY allergies 04/2212/03/24 History (Allerclear) meclizine 12.5 mg tablet 12.5 mg PO Q8H PRN dizziness 12/04/24 Unknown History ondansetron 4 mg disintegrating 4 mg PO Q4H PRN nausea 12/04/24 Unknown History tablet simethicone 125 mg capsule (Gas 125 mg PO TIDCM Gerd 0 12/04/24 12/03/24 History Relief (simethicone)) zoledronic acid 5 mg/100 mL in 1 ea IV .COMPLEX Bone 0 12/04/24 Unknown History mannitol 5 %-water intravenous piggybck (Reclast) Allergy/AdvReac Type Severity Reaction Status Date / Time diclofenac Allergy rash Verified 12/04/24 07:22 prednisone Allergy Rash Verified 12/04/24 07:22 Family History Father Cancer Prostate cancer Mother Hypertension Sister Hypertension Surgical History History of colonoscopy (03/26/24) History of back surgery History of cardiac catheterization History of esophagogastroduodenoscopy (EGD) History of cardioversion (06/18/19) History of radiofrequency ablation procedure for cardiac arrhythmia (11/11/11) History of electrophysiologic study (08/08/00) History of left heart catheterization (07/17/12) History of hemorrhoidectomy History of Zenaida fundoplication History of coronary artery stent placement (08/04/00) History of hernia repair History of back surgery Social History household members: none Smoking Status: Never smoker alcohol intake: never substance use type: does not use caffeine: No Physical Exam Cardio Cardio Narrative: Seen and evaluated bedside No further episode of chest pain reported vehicle monitor technician showed underlying normal sinus rhythm Cardiac exam S1-S2 is regular No systolic or diastolic murmur Chest exam is clear auscultation bilateral No lower extremity edema noted. Risk Stratification Risk Stratification Applicable: No Objective Data Vital Signs: Vital Signs Temp Pulse Resp BP Pulse Ox O2 Del Method O2 Flow Rate 97.5 F L 75 19 H 100/52 L 96 Nasal Cannula 5 12/09/24 08:00 12/09/24 13:00 12/09/24 13:00 12/09/24 13:00 12/09/24 13:00 12/09/24 13:00 12/09/24 13:00 Oxygen Flow Rate (L/min) 5 Oxygen Delivery Method Nasal Cannula Weight: 131 lb 9.855 oz Body Mass Index (BMI) 19.9 Intake & Output: Intake and Output for Last 24 Hours 12/07/24 12/08/24 12/09/24 23:59 23:59 23:59 Intake Total 1090.2 / 1090.2 1750.2 / 1750.2 687.57 / 687.57 Output Total 0 / 0 500 / 500 1050 / 1050 Balance 1090.2 / 1090.2 1250.2 / 1250.2 -362.43 / -362.43 Lab / Micro Data 12/09/24 03:48 12/09/24 03:48 Labs: Laboratory Results - last 24 hr 12/09/24 03:48: WBC 11.0, RBC 2.29 L, Hgb 9.0 L, Hct 26.5 L, MCV 115.7 H, MCH 39.3 H, MCHC 34.0, RDW Std Deviation 66.1 H, RDW Coeff of Pablo 15.7 H, Plt Count 207, MPV 10.1, Sodium 140, Potassium 3.4, Chloride 109 H, Carbon Dioxide 21.7, Anion Gap 10, BUN 29 H, Creatinine 2.49 H, Estim Creat Clear Calc 17.71 L, Est GFR (MDRD) Non-Af 25 L, BUN/Creatinine Ratio 11.7, Glucose 92, Calcium 8.0, T roponin T High Sens 1718 H* D 12/09/24 05:48: Troponin T Hi Sens 2 Hr 1562 H*, [place] [address] H 12/09/24 11:45: APTT 55.1 H Cardiology Labs/Tests 12/09/24 03:48: WBC 11.0, RBC 2.29 L, Hgb 9.0 L, Hct 26.5 L, MCV 115.7 H, MCH 39.3 H, MCHC 34.0, Plt Count 207, MPV 10.1, Sodium 140, Potassium 3.4, Chloride 109 H, Carbon Dioxide 21.7, Anion Gap 10, BUN 29 H, Creatinine 2.49 H, Est GFR (MDRD) Non-Af 25 L, BUN/Creatinine Ratio 11.7, Glucose 92, Calcium 8.0 12/09/24 11:45: APTT 55.1 H Rhythm: EKG: ECHO: Stress Test: Cardiac Cath: PCI: CT Surgery: Holter monitor: EPS: PPM: CXR: Chest CT Scan: Radiography Diagnostic Testing: Radiology Impression Chest X-Ray 12/09/24 06:27 IMPRESSION: Acute CHF pulmonary edema, new since prior examination. Follow-up to clearing is recommended.. Reading Location: [id number]
[2024-12-09 17:58] LABS: Partial Thromboplast Time 67.1 Seconds (24.1-36.2)
[2024-12-09] MEDS: Mag Hydrox/Al Hydrox/Simeth 30 ML UDC 15 ML PO (19:37)
[2024-12-09] MEDS: traZODone 50 MG Tablet 25 MG PO (21:02)
[2024-12-09] MEDS: Ferrous Sulfate 325 MG Tablet PO (21:03)
[2024-12-09] MEDS: Atorvastatin Calcium 40 MG Tablet PO (21:03)
[2024-12-10] VITALS (37 sets, daily range): BP systolic 87–138; BP diastolic 33–68; PULSE 32–65; RESP 10–27; TEMP 36.2–37.7; O2SAT 86–98; BMI 19.8
[2024-12-10 04:10] LABS: International Normalized Ratio 1.3; Prothrombin Time (Protime)PT. 16.5 SECONDS (11.7-14.9)
[2024-12-10 04:11] LABS: Partial Thromboplast Time 45.4 Seconds (24.1-36.2)
[2024-12-10 04:26] LABS: Anion Gap 11 (5-15); BUN 34 mg/dL (4-19); BUN/Creat Ratio 13.3 RATIO (10-20); Calcium,Total 8.2 mg/dL (7.6-11.0); Carbon Dioxide 23.5 mmol/L (21.0-32.0); Chloride 106 mmol/L (98-108); Creatinine, Serum 2.57 mg/dL (0.70-1.20); EST Glomerular Filtration Rate 24 (>60); Estimated Creatinine Clearance 18.39 ml/min (50-250); Glucose 115 mg/dL (70-99); Potassium 3.2 mmol/L (3.3-5.1); Sodium Level 140 mmol/L (133-145)
[2024-12-10 06:41] LABS: Cholesterol 104 mg/dL (<=200); High Density Lipoprotein 45 mg/dL; Low Density Lipoprotein Calc. 49 mg/dL; Triglycerides 49 mg/dL; Very Low Density Lipoprotein 10 mg/dL (5-40); cholesterol:hdl ratio screen 2.31
--- NOTE | 2024-12-10 07:40 | PN.CARD_ITS ---
Subjective Subjective Patient seen and evaluated. Events of the weekend noted. Currently no chest pain noted. Objective Data Vital Signs: Vital Signs Temp Pulse Resp BP Pulse Ox O2 Del Method O2 Flow Rate 98.9 F 44 L 24 H 118/59 L 93 Nasal Cannula 6 12/10/24 04:00 12/10/24 07:00 12/10/24 07:00 12/10/24 07:00 12/10/24 07:00 12/10/24 07:00 12/10/24 07:00 Oxygen Flow Rate (L/min) 6 Oxygen Delivery Method Nasal Cannula Weight: 131 lb 3.2 oz Body Mass Index (BMI) 19.8 Intake & Output: Intake and Output for Last 24 Hours 12/08/24 12/09/24 12/10/24 23:59 23:59 23:59 Intake Total 1750.2 / 1750.2 1125.95 / 1128.95 98.18 / 98.18 Output Total 500 / 500 1050 / 1450 750 / 750 Balance 1250.2 / 1250.2 75.95 / -321.05 -651.82 / -651.82 Lab / Micro Data 12/09/24 03:48 12/10/24 03:50 Labs: Laboratory Results - last 24 hr 12/09/24 11:45: APTT 55.1 H 12/09/24 17:35: APTT 67.1 H 12/10/24 03:50: PT 16.5 H, INR 1.3, APTT 45.4 H, Sodium 140, Potassium 3.2 L, Chloride 106, Carbon Dioxide 23.5, Anion Gap 11, BUN 34 H, Creatinine 2.57 H, E stim Creat Clear Calc 18.39 L, Est GFR (MDRD) Non-Af 24 L, BUN/Creatinine Ratio 13.3, Glucose 115 H, Calcium 8.2, Triglycerides 49, Cholesterol 104, LDL Cholesterol, Calc 49, VLDL Cholesterol 10, HDL Cholesterol 45, Cholesterol/HDL Ratio 2.31 Cardiology Labs/Tests 12/09/24 11:45: APTT 55.1 H 12/09/24 17:35: APTT 67.1 H 12/10/24 03:50: PT 16.5 H, INR 1.3, APTT 45.4 H, Sodium 140, Potassium 3.2 L, Chloride 106, Carbon Dioxide 23.5, Anion Gap 11, BUN 34 H, Creatinine 2.57 H, E st GFR (MDRD) Non-Af 24 L, BUN/Creatinine Ratio 13.3, Glucose 115 H, Calcium 8.2, Triglycerides 49, Cholesterol 104, VLDL Cholesterol 10, HDL Cholesterol 45, Cholesterol/HDL Ratio 2.31 Rhythm: EKG: ECHO: Stress Test: Cardiac Cath: PCI: CT Surgery: Holter monitor: EPS: PPM: CXR: Chest CT Scan: Physical Exam Const alert, oriented x3 and no apparent distress General Appearance: cooperative HEENT hearing grossly normal bilaterally Head and Scalp: atraumatic Eyes EOMs intact bilaterally Neck General: normal visual inspection Chest inspection of chest normal and palpation of chest normal Resp normal respiratory effort Auscultation: clear to auscultation bilaterally Cardio S1 normal heart sound and S2 normal heart sound Jugular Venous Distention: JVD Rhythm: abnormal rhythm irregularly irregular GI normal to inspection, nondistended, normoactive bowel sounds Extremity normal capillary refill and no pedal edema Peripheral Pulses: Yes pulses 2+ throughout and femoral pulses present Skin no rashes or lesions noted Neuro oriented x3 and CN's II-XII intact bilaterally Psych Appearance: grossly normal and appropriate Assessment & Plan Assessment/Plan (1) Persistent atrial fibrillation: PLAN: He does have persistent atrial fibrillation with a controlled ventricular response rate. His ventricular response rate is low and at this time it may be prudent for us to put a permanent pacemaker in him so we can support him with medication. We will attempt to the above during this admission. (2) Acute on chronic heart failure with reduced ejection fraction and diastolic dysfunction: PLAN: He does have borderline ejection fraction estimated at 53%. His atrial size is dilated. He will have a repeat echocardiogram to reassess his ventricular function and then further recommendations made. (3) Pulmonary hypertension: PLAN: He does have evidence of moderate pulmonary hypertension. We will continue the current medical therapy at this time. (4) History of coronary artery stent placement: PLAN: He has known coronary artery disease status post previous angioplasty and stent placement in the LAD. He has had intermittent chest discomfort with elevated troponin. I would recommend that he have a limited left heart catheterization to assess his coronary anatomy. Depending on the findings further recommendations will be made. He has recently undergone GI scoping which did not demonstrate any significant pathology. He however has renal dysfunction and therefore limited contrast to be used and he may need to have a staged procedure. (5) Essential (primary) hypertension: PLAN: Patient has a history of hypertension
[2024-12-10] MEDS: 0.9% Normal Saline (1000mL) 1,000 ML 100 ML IV ×2 (09:35→20:39)
--- NOTE | 2024-12-10 09:39 | PN_ITS ---
Subjective Subjective Patient seen and examined. He had no active complaints. He remains bradycardic, with HR in the low 40s. He denied any lightheadedness, dizziness, nausea, vomiting or any other symptoms. Review of systems is otherwise negative. HE is for cardiac cath today adn likely for pacemaker tomorrow. Objective Data Objective Data Vital Signs: Vital Signs Temp Pulse Resp BP Pulse Ox O2 Del Method O2 Flow Rate 99.8 F H 43 L 21 H 127/58 H 95 Nasal Cannula 6 12/10/24 08:00 12/10/24 09:00 12/10/24 09:00 12/10/24 09:00 12/10/24 09:00 12/10/24 09:00 12/10/24 09:00 Oxygen Flow Rate (L/min) 6 Oxygen Delivery Method Nasal Cannula Weight: 131 lb 3.2 oz Body Mass Index (BMI) 19.8 Intake & Output: Intake and Output for Last 24 Hours 12/08/24 12/09/24 12/10/24 23:59 23:59 23:59 Intake Total 1750.2 / 1750.2 1125.95 / 1128.95 98.18 / 98.18 Output Total 500 / 500 1050 / 1450 750 / 750 Balance 1250.2 / 1250.2 75.95 / -321.05 -651.82 / -651.82 Lab / Micro Data 12/09/24 03:48 12/10/24 03:50 Labs: Laboratory Results - last 24 hr 12/09/24 11:45: APTT 55.1 H 12/09/24 17:35: APTT 67.1 H 12/10/24 03:50: PT 16.5 H, INR 1.3, APTT 45.4 H, Sodium 140, Potassium 3.2 L, Chloride 106, Carbon Dioxide 23.5, Anion Gap 11, BUN 34 H, Creatinine 2.57 H, E stim Creat Clear Calc 18.39 L, Est GFR (MDRD) Non-Af 24 L, BUN/Creatinine Ratio 13.3, Glucose 115 H, Calcium 8.2, Triglycerides 49, Cholesterol 104, LDL Cholesterol, Calc 49, VLDL Cholesterol 10, HDL Cholesterol 45, Cholesterol/HDL Ratio 2.31 Radiography Diagnostic Testing: Radiology Impression Echocardiogram 12/09/24 07:44 Interpretation Summary Normal LV size. Left ventricular systolic function is normal. The left ventricular ejection fraction is 60 %. The left atrium is severely enlarged. Moderately severe (3+) tricuspid valve insufficiency. Severe pulmonary hypertension. Ordering Physician: Emy Willard Referring Physician: PRASANNA MÉNDEZ Performed By: Shakila Bran RDCS Physical Exam Const alert, oriented x3 and no apparent distress Constitutional Narrative: frail, weak General Appearance: cooperative HEENT normocephalic and head/scalp atraumatic HEENT Narrative: dry oral mucosa Eyes PERRL and EOMs intact bilaterally Neck no lymphadenopathy and supple Lymph Lymphatic: no lymphadenopathy noted and no lymphedema noted Resp Resp Narrative: mildly diminished breath sounds bibasally, no wheezes or crackles. On 6L of oxygen by nasal canula Cardio S1 normal heart sound, S2 normal heart sound and no murmurs Cardio Narrative: bradycardic GI normal to inspection, nondistended, normoactive bowel sounds, soft to palpation, non-tender and non-distended Extremity normal capillary refill, no clubbing, cyanosis or edema and no calf tenderness General Extremity: no tenderness to palpation of joints or extremities Skin General Skin Exam: no breakdown Neuro CN's II-XII intact bilaterally and no focal motor deficits Motor Exam: strength 5/5 throughout and general weakness Psych thought process normal and cooperative Appearance: appropriate Assessment & Plan Assessment/Plan (1) Elevated troponin: (2) Bright red blood per rectum: (3) Bradycardia: PLAN: Plan #Nonstemi * had chest pain over the weekend, and troponin was 1700. * on nitro drip and heparin drip * for cardiac cath today. * cardiology on board * 2D echo ordered and pending. * #Acute exacerbation of HFpEF * 2D echo done and read is penidng * [place] [address]. * on IV lasix * #HYpokalemia: K is 3.2. Will replace and trend. #CKD IV * Cr at baseline. Will monitor. Cr today is 3.4. * #Rectal bleeding * complained of bright red bleeding per rectum. 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 Colonoscopy showed only stool on cilon with some areas that looked like bleeding sgigmata. * GI was ok with going back on his eliquis, though this is also on hold now as he is on heparin drip. * #Hypertension * BP meds on hold for now as patient now on nitro drip. IT was initially held also due to hypotension. * #Atrial fibrillation * amodarone and eliquis on hold. Currently on heparin drip. * on cardizem. * #CAD s/p stents * on heparin drip now as well as nitro drip * on high intensity statin. * #BPH: on flomax and finasteride #Hypothyroidism: on synthroid #ALVARADO; on CPAP qhs. DVT prophylaxis: on heparin drip Charges/Coding Visit Charges Inpatient E&M: 18995 [facility] Hosp L3
[2024-12-10] MEDS: Potassium Chloride Oral Tablet 20 MEQ 40 MEQ PO ×2 (10:24→17:16)
[2024-12-10] MEDS: Pantoprazole Sodium 40 MG in 0.9% Normal Saline (100mL MB+) 100 ML 330 MG IV ×2 (10:24→21:56)
--- NOTE | 2024-12-10 11:00 | NURSING ---
Patient left unit to the vp lab
--- NOTE | 2024-12-10 11:41 | CASEMGMT ---
Per ICU rounds, pt is planned for a cardiac catheter today and possible pacemaker tomorrow. Karrie @ [facility] states that the referral will remain pending at this time. CM to follow.
--- NOTE | 2024-12-10 11:57 | CL.D_ITS ---
Patient Name: RICHIE HANSEN Study Date: 12/10/2024 Performing: Tremaine Molina MD Ht: 68 inches 172.72 cm : 1940 Wt: 131.4 lbs 59.51 kg Age: 84 Gender: male BSA: 1.71 PROCEDURE(S) PERFORMED [id number])[facility] CLINICAL PROFILE AND INDICATIONS Indications: Suspected CAD Heart Failure: None Stress/Imaging Stress/Image Study Performed: No CAD Presentations: Unstable angina. Non-STEMI. Symptom onset Date/Time: 12/09/24 Time Not Available CONCLUSIONS Single-vessel coronary artery disease involving a second diagonal vessel and previously stented LAD with moderate in-stent stenosis. Preserved ejection fraction. RECOMMENDATIONS Recommend aggressive medical therapy. DESCRIPTION OF PROCEDURE The patient arrived to the procedure lab. The risks and benefits of the procedure as well as a full description of our services here and current unavailability of surgical backup were fully explained to the patient and/or their significant other prior to the catheterization. The Timeout was completed, verifying the correct patient and procedure. The patient's procedural site was prepped and draped in the usual fashion. Local anesthetic was given subcutaneously to right radial region with Lidocaine 2%. Using a modified Seldinger technique, arterial access was obtained via the right radial artery, a 6Fr sheath was inserted. Right Coronary Artery selective angiography was then performed in multiple views using a 5 Fr. 4.0 [place] catheter. Left Coronary Artery selective angiography was performed in multiple views using a 5 Fr. 4.0 [place] catheter. Left Coronary Artery selective angiography was performed in multiple views using a 5 Fr. JL4 catheter.The arterial sheath was pulled and a TR Band was applied for hemostasis CORONARY ANGIOGRAPHY DOMINANCE: Right Dominant LEFT HEART ASSESSMENT Left Ventricular Ejection Fraction: by Echo 60 % Normal LV wall motion Normal Left Ventricular systolic function LEFT MAIN: Angiographically normal LEFT ANTERIOR DESCENDING ARTERY: Previously placed stent in the mid LAD with 40 to 50% stenosis. Second diagonal vessel with 90% proximal stenosis and a small vessel. Mild diffuse distal disease present. CIRCUMFLEX ARTERY: Mild luminal irregularities less than 30% RIGHT CORONARY ARTERY: Large dominant vessel with mild proximal disease and mild to moderate distal segment disease. COMPLICATIONS No Complications PROCEDURE MEDICATIONS Oxygen: 6 L/min via nasal cannula Aspirin (325mg) 1 Tabs PO @ 12/10/2024 11:21:54 Heparin given IA 12/10/2024 11:30:58 Nitro glycerin 25mg / 250ml D5W @ 5 mcg/min IV started on ICU, continued here in the lab 12/10/2024 11:29:27 SUMMARY OF HEMODYNAMIC DATA Time AIR REST ECG 11:11:06 AO 146/55 (85) SA 11:34:55 Signed By Tremaine Molina MD On 12/10/2024 11:56:44 Signed By Tremaine Molina MD On 12/10/2024 11:56:34 Tremaine Molina MD
[2024-12-10] MEDS: Folic Acid 1 MG in 0.9% Normal Saline (50mL Bag) 50 ML 200 MG IV (13:17)
[2024-12-10] MEDS: Furosemide 20 MG/2 ML VIAL IV (13:21)
--- NOTE | 2024-12-10 14:30 | CHAPLAIN ---
Type of Pastoral Visit _x__ Initial Visit ___ Follow-up Visit ___ On-call Visit ___ General Patient Visit ___ Spiritual Assessment ___ Family Conference ___ Bereavement ___ Rapid Response ___ Code Blue ___ Other (describe below) Pastoral Care Referral From _x__ Patient ___ Family ___ Nurse ___ Physician ___ Growth Media Mixer Mushroom ___ [employer]itor Tax ___ Other (describe below) Sacrament/Intervention _x__ Active listening ___ Anointing ___ Mandaen ___ Bereavement ___ Communion ___ Jerica exploration ___ ___ Life review _x__ Prayer ___ Reconciliation ___ Sacrament of Sick ___ Supportive presence ___ Wedding ___ Other (describe below) Pastoral Comments patient has returned from a heart cath and will be having a pacemaker inserted in the future; pt repeats what he knows about the procedure and for his heart; pt welcomes presence and prayer for support
[2024-12-10] MEDS: Isosorbide DN 30 MG Tablet PO ×2 (15:11→21:59)
[2024-12-10] MEDS: Ondansetron 4 MG/2 ML Vial IV (15:58)
[2024-12-10] MEDS: Magnesium Sulfate 2 GM in Dextrose 5%-Water (100mL Bag) 100 ML IV (16:26)
[2024-12-10] MEDS: Potassium Chloride 10mEq/100mL 10 MEQ/100 ML IV.SOLN. 100 MEQ IV BOLUS ×2 (16:28→17:28)
--- NOTE | 2024-12-10 17:42 | PN_ITS ---
Progress Note Patient's last hemoglobin was 9. He did not get a hemoglobin drawn today. He went for cardiac catheterization today and echo cardiogram. Transthoracic echocardiogram: - Normal left ventricular size - Left ventricular systolic function was normal - Left ventricular ejection fraction 60% - Left atrium severely enlarged - Moderate to severe tricuspid regurgitation 3+ - Severe pulmonary hypertension Physical Exam Const alert, oriented x3, no apparent distress and healthy appearing General Appearance: cooperative GI normal to inspection, nondistended, normoactive bowel sounds, soft to palpation, non-tender and non-distended Percussion: normal to percussion Rectal Exam: deferred Assessment & Plan Assessment/Plan (1) Elevated troponin: (2) Bright red blood per rectum: (3) Bradycardia: PLAN: Plan #Nonstemi * had chest pain over the weekend, and troponin was 1700. * on nitro drip and heparin drip * for cardiac cath today. * cardiology on board * Transthoracic echocardiogram-performed with ejection fraction of 60%, LA severely enlarged, moderate to severe TR and severe pulmonary pretension * #Acute exacerbation of HFpEF * Patient has been diuresed * [place] [address]. * on IV lasix * #HYpokalemia: K is 3.2. Will replace and trend. #CKD IV * Cr at baseline. Will monitor. Cr today is 3.4. * #Rectal bleeding * complained of bright red bleeding per rectum. 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 Colonoscopy showed only stool on cilon with some areas that looked like bleeding sgigmata. * GI was ok with going back on his eliquis, though this is also on hold now as he is on heparin drip. * #Atrial fibrillation * amodarone and eliquis on hold. Currently on heparin drip. * on cardizem. * #CAD s/p stents * on heparin drip now as well as nitro drip he was started back on anticoagulation as well as antiplatelet therapy. * Visit Charges Inpatient E&M: 13386 [facility] L3
--- NOTE | 2024-12-10 17:42 | PCM.PN.BLA ---
Progress Note Patient's last hemoglobin was 9. He did not get a hemoglobin drawn today. He went for cardiac catheterization today and echo cardiogram. Transthoracic echocardiogram: - Normal left ventricular size - Left ventricular systolic function was normal - Left ventricular ejection fraction 60% - Left atrium severely enlarged - Moderate to severe tricuspid regurgitation 3+ - Severe pulmonary hypertension Physical Exam Const alert, oriented x3, no apparent distress and healthy appearing General Appearance: cooperative GI normal to inspection, nondistended, normoactive bowel sounds, soft to palpation, non-tender and non-distended Percussion: normal to percussion Rectal Exam: deferred Assessment & Plan Assessment/Plan (1) Elevated troponin: (2) Bright red blood per rectum: (3) Bradycardia: PLAN: Plan #Nonstemi had chest pain over the weekend, and troponin was 1700. on nitro drip and heparin drip for cardiac cath today. cardiology on board Transthoracic echocardiogram-performed with ejection fraction of 60%, LA severely enlarged, moderate to severe TR and severe pulmonary pretension #Acute exacerbation of HFpEF Patient [place] [address]. on IV lasix #HYpokalemia: K is 3.2. Will replace and trend. #CKD IV Cr at baseline. Will monitor. Cr today is 3.4. #Rectal bleeding complained of bright red bleeding per rectum. had EGD which showed angiodysplastic lesion treated with a heater probe. Colonoscopy showed only stool on cilon with some areas that looked like bleeding sgigmata. GI was ok with going back on his eliquis, though this is also on hold now as he is on heparin drip. #Atrial fibrillation amodarone and eliquis on hold. Currently on heparin drip. on cardizem. #CAD s/p stents on heparin drip now as well as nitro drip he was started back on anticoagulation as well as antiplatelet therapy. Visit Charges Inpatient E&M: [id number] [facility] L3
--- NOTE | 2024-12-10 19:36 | EKG12_ITS ---
Test Reason : Blood Pressure : */* mmHG Vent. Rate : 50 BPM Atrial Rate : * BPM P-R Int : * ms QRS Dur : 134 ms QT Int : 500 ms P-R-T Axes : * 46 -66 degrees QTcB Int : 455 ms Atrial tachycardia with AV block and PVC's Right bundle branch block Abnormal ECG Confirmed by Indio Robin ([id number]), copy editor CIPRIANO GATES ([id number]) on 12/13/2024 9:43:35 AM Referred By: Confirmed By: Indio Robin
--- NOTE | 2024-12-10 20:25 | EKG12_ITS ---
Test Reason : ARRYTH Blood Pressure : */* mmHG Vent. Rate : 29 BPM Atrial Rate : 163 BPM P-R Int : * ms QRS Dur : 132 ms QT Int : 562 ms P-R-T Axes : 93 51 64 degrees QTcB Int : 390 ms Critical Test Result: Low HR Atrial tachycardia with complete heart block Right bundle branch block Abnormal ECG Confirmed by Indio Robin ([id number]), magazine editor CIPRIANO GATES ([id number]) on 12/13/2024 9:40:58 AM Referred By: Confirmed By: Indio Robin
--- NOTE | 2024-12-10 20:43 | NURSING ---
Dr. Molina arrived on unit at 2029. Pt taken down to lab aid for temporary pacer
--- NOTE | 2024-12-10 21:17 | PN_ITS ---
Progress Note Patient noted to have intermittent periods of high-grade AV block which had been preceded by an episode of torsade for which she was treated with potassium and magnesium. Heart rate was noted to be in the 30s and patient was getting mildly hypotensive. Therefore opted to come and put in a temporary pacemaker. Physical Exam Const alert, oriented x3, no apparent distress and healthy appearing General Appearance: cooperative Chest inspection of chest normal Cardio Rhythm: abnormal rhythm irregularly irregular GI normal to inspection, nondistended, normoactive bowel sounds, soft to palpation, non-tender and non-distended Extremity no clubbing, cyanosis or edema Assessment & Plan Assessment/Plan (1) Persistent atrial fibrillation: PLAN: He does have persistent atrial fibrillation with a controlled ventricular response rate. His ventricular response rate is low and at this time it may be prudent for us to put a permanent pacemaker in him so we can support him with medication. * On account of his low heart rate with atrial fibrillation a temporary pacemaker was placed this evening with a permanent scheduled for December 11 a.m. (2) Acute on chronic heart failure with reduced ejection fraction and diastolic dysfunction: PLAN: He does have borderline ejection fraction estimated at 60%. His atrial size is dilated. (3) Pulmonary hypertension: PLAN: He does have evidence of moderate to severe pulmonary hypertension. We will continue the current medical therapy at this time. (4) History of coronary artery stent placement: PLAN: He has known coronary artery disease status post previous angioplasty and stent placement in the LAD. Case cardiac catheterization demonstrated disease involving the second small diagonal branch. LAD stent was patent. Medical therapy was recommended. (5) Essential (primary) hypertension: PLAN: Patient has a history of hypertension
[2024-12-10] MEDS: 0.9% Normal Saline (100mL Bag) 100 ML 15 ML IV (21:57)
[2024-12-10] MEDS: traZODone 50 MG Tablet 25 MG PO (21:58)
[2024-12-10] MEDS: Atorvastatin Calcium 40 MG Tablet PO (21:58)
[2024-12-10] MEDS: Ferrous Sulfate 325 MG Tablet PO (21:58)
[2024-12-10] MEDS: Tamsulosin HCl 0.4 MG Capsule PO (21:58)
[2024-12-10] MEDS: Ranolazine 500 MG Tablet PO (21:58)
[2024-12-10] MEDS: 0.9% Normal Saline (1000mL) 1,000 ML 15 ML IV (22:44)
--- NOTE | 2024-12-10 22:46 | NURSING ---
RN at bedside. pt requested for lights to be turned off then went unresponsive with monitor reading Asystole. RN performed sternal rub and requested help. pacer spikes still showed. pt recovered pulse and quickly regained consciousness. Dr. Molina notified.
[2024-12-10 23:27] LABS: Anion Gap 10 (5-15); BUN 31 mg/dL (4-19); BUN/Creat Ratio 12.8 RATIO (10-20); Calcium,Total 7.7 mg/dL (7.6-11.0); Carbon Dioxide 21.6 mmol/L (21.0-32.0); Chloride 109 mmol/L (98-108); Creatinine, Serum 2.46 mg/dL (0.70-1.20); EST Glomerular Filtration Rate 25 (>60); Estimated Creatinine Clearance 19.15 ml/min (50-250); Glucose 126 mg/dL (70-99); Potassium 4.6 mmol/L (3.3-5.1); Sodium Level 141 mmol/L (133-145)
[2024-12-10] MEDS: DOPamine IV 800 MG/250 ML IV.SOLN. 5.6 MG CONT INF (23:40)
[2024-12-11] VITALS (32 sets, daily range): BP systolic 80–120; BP diastolic 47–72; PULSE 52–69; RESP 16–28; TEMP 36.1–36.9; O2SAT 84–98; BMI 20.5
[2024-12-11] MEDS: Ondansetron 4 MG/2 ML Vial IV (02:15)
[2024-12-11] MEDS: 0.9% Saline Lock 10 ML Syringe IV ×2 (05:14→17:39)
[2024-12-11] MEDS: Isosorbide DN 30 MG Tablet PO ×3 (05:17→21:31)
[2024-12-11] MEDS: Levothyroxine 50 MCG Tablet PO (05:17)
[2024-12-11 05:19] LABS: Anion Gap 10 (5-15); BUN 33 mg/dL (4-19); BUN/Creat Ratio 13.7 RATIO (10-20); Calcium,Total 8.2 mg/dL (7.6-11.0); Carbon Dioxide 22.6 mmol/L (21.0-32.0); Chloride 108 mmol/L (98-108); Creatinine, Serum 2.41 mg/dL (0.70-1.20); EST Glomerular Filtration Rate 26 (>60); Estimated Creatinine Clearance 19.55 ml/min (50-250); Glucose 159 mg/dL (70-99); Magnesium 2.4 mg/dL (1.5-2.2); Potassium 4.3 mmol/L (3.3-5.1); Sodium Level 141 mmol/L (133-145)
[2024-12-11] MEDS: TITRATION PARAMETER CHANGE 1 EACH IV (05:39)
--- NOTE | 2024-12-11 08:38 | PN.CARD_ITS ---
Subjective Subjective Patient seen and evaluated. Underwent placement of a permanent pacemaker this morning. Objective Data Vital Signs: Vital Signs Temp Pulse Resp BP Pulse Ox O2 Del Method O2 Flow Rate 97.6 F L 63 22 H 103/57 L 95 Non-Rebreather 15 12/11/24 04:00 12/11/24 07:00 12/11/24 07:00 12/11/24 07:00 12/11/24 07:10 12/11/24 07:10 12/11/24 07:10 FiO2 92 12/11/24 07:00 Oxygen Flow Rate (L/min) 15 Oxygen Delivery Method Non-Rebreather Weight: 135 lb 12.876 oz Body Mass Index (BMI) 20.5 Intake & Output: Intake and Output for Last 24 Hours 12/09/24 12/10/24 12/11/24 23:59 23:59 23:59 Intake Total 1125.95 / 1128.95 1687.05 / 1688.92 299.19 / 299.19 Output Total 1050 / 1450 750 / 800 350 / 350 Balance 75.95 / -321.05 937.05 / 888.92 -50.81 / -50.81 Lab / Micro Data 12/09/24 03:48 12/11/24 04:45 Labs: Laboratory Results - last 24 hr 12/10/24 22:35: Sodium 141, Potassium 4.6, Chloride 109 H, Carbon Dioxide 21.6, Anion Gap 10, BUN 31 H, Creatinine 2.46 H, Estim Creat Clear Calc 19.15 L, Est GFR (MDRD) Non-Af 25 L, BUN/Creatinine Ratio 12.8, Glucose 126 H, Calcium 7.7 12/11/24 04:45: Sodium 141, Potassium 4.3, Chloride 108, Carbon Dioxide 22.6, Anion Gap 10, BUN 33 H, Creatinine 2.41 H, Estim Creat Clear Calc 19.55 L, Est GFR (MDRD) Non-Af 26 L, BUN/Creatinine Ratio 13.7, Glucose 159 H, Calcium 8.2, M agnesium 2.4 H Cardiology Labs/Tests 12/10/24 22:35: Sodium 141, Potassium 4.6, Chloride 109 H, Carbon Dioxide 21.6, Anion Gap 10, BUN 31 H, Creatinine 2.46 H, Est GFR (MDRD) Non-Af 25 L, BUN/Creatinine Ratio 12.8, Glucose 126 H, Calcium 7.7 12/11/24 04:45: Sodium 141, Potassium 4.3, Chloride 108, Carbon Dioxide 22.6, Anion Gap 10, BUN 33 H, Creatinine 2.41 H, Est GFR (MDRD) Non-Af 26 L, BUN/Creatinine Ratio 13.7, Glucose 159 H, Calcium 8.2, Magnesium 2.4 H Rhythm: EKG: ECHO: Stress Test: Cardiac Cath: PCI: CT Surgery: Holter monitor: EPS: PPM: CXR: Chest CT Scan: Radiography Diagnostic Testing: Radiology Impression Echocardiogram 12/09/24 07:44 Interpretation Summary Normal LV size. Left ventricular systolic function is normal. The left ventricular ejection fraction is 60 %. The left atrium is severely enlarged. Moderately severe (3+) tricuspid valve insufficiency. Severe pulmonary hypertension. Ordering Physician: Emy Willard Referring Physician: PRASANNA MÉNDEZ Performed By: Shakila Bran RDCS Physical Exam Const alert, oriented x3, no apparent distress and healthy appearing General Appearance: cooperative Chest inspection of chest normal Cardio Rhythm: abnormal rhythm irregularly irregular GI normal to inspection, nondistended, normoactive bowel sounds, soft to palpation, non-tender and non-distended Extremity no clubbing, cyanosis or edema Assessment & Plan Assessment/Plan (1) Persistent atrial fibrillation: PLAN: He does have persistent atrial fibrillation with a controlled ventricular response rate. His ventricular response rate is low and at this time it may be prudent for us to put a permanent pacemaker in him so we can support him with medication. * On account of his low heart rate with atrial fibrillation a single-lead permanent pacemaker was implanted. The temporary pacemaker was then removed under fluoroscopic guidance. (2) Acute on chronic heart failure with reduced ejection fraction and diastolic dysfunction: PLAN: He does have borderline ejection fraction estimated at 60%. His atrial size is dilated. (3) Pulmonary hypertension: PLAN: He does have evidence of moderate to severe pulmonary hypertension. We will continue the current medical therapy at this time. (4) History of coronary artery stent placement: PLAN: He has known coronary artery disease status post previous angioplasty and stent placement in the LAD. Case cardiac catheterization demonstrated disease involving the second small diagonal branch. LAD stent was patent. Medical therapy was recommended. He will continue with isosorbide as well as ranolazine. (5) Essential (primary) hypertension: PLAN: Patient has a history of hypertension
--- NOTE | 2024-12-11 08:44 | CL.IE_ITS ---
Patient: RICHIE HANSEN Study Date: 12/11/2024 Performing: Tremaine Molina MD : [id number] Age: 84 Gender: male PROCEDURES PERFORMED LP03-([id number])INITIAL PACER INSERT+VENTRICULAR LEAD INDICATIONS Atrial fibrillation and complete heart block PROCEDURE DETAILS The patient was brought to the Catheterization Lab in the postabsorptive nonsedated state. Informed consent was obtained prior to the procedure. Local anesthetic was given subcutaneously to the left subclavian region with Lidocaine 2%. Access was achieved and a guidewire was advanced into the left subclavian vein. Incision was made to the left upper chest. A peel-away sheath was inserted into the left subclavian vein. PPM ventricular lead was inserted / positioned to right ventricular apex. The wire was then removed. PPM ventricular lead testing performed. PPM ventricular lead testing performed. The Ventricular PM lead sutured in place with 2-0 Silk. PPM generator was attached to the lead(s) and inserted into the pocket. Device pocket was irrigated with antibiotic, Ancef 1gm. PPM generator was then interrogated by the java programmer. Subcutaneous closure was completed with 3-0 Vicryl. Skin closure was completed with 4-0 Vicryl. Steri-strips applied to left subclavicular incision. Temporary pacemaker was turned off. Temporary pacemaker was removed. The patient tolerated the procedure well. Estimated Blood Loss: 10 ml's IMPLANTED / EX-PLANTED DEVICES IMPLANTED DEVICE(S): PPM Ventricular lead - Explosive Ordnance Specialist: [employer], Model # 7842 , Serial # [id number] PPM Generator - Explosive Ordnance Specialist: [employer], Model # L110 , Serial # [id number] DEVICE PARAMETERS VENTRICULAR LEAD PARAMETERS: R wave- 3.5 (mV) Current- 1.3 (mA) threshold- 0.8 (V) impedence- 638 (OHMS) DEVICE PARAMETERS: Mode- VVI Lower rate- 60 CONCLUSIONS / RECOMMENDATIONS Device Conclusions: Successful implantation of a single chamber pacemaker Device Recommendations: Follow up with Primary Care Physician PROCEDURE MEDICATIONS Fentanyl 25 mcg IV Oxygen: 15 L/min via non-rebreather mask Ancef 2 Gm IV @ 12/11/2024 07:42:50 Lasix 40 mg IV 12/11/2024 08:03:41 Signed By Tremaine Molina MD On 12/11/2024 08:43:57 Tremaine Molina MD
[2024-12-11] MEDS: Tamsulosin HCl 0.4 MG Capsule PO ×2 (09:55→21:30)
[2024-12-11] MEDS: Finasteride 5 MG Tablet PO (09:55)
[2024-12-11] MEDS: Ranolazine 500 MG Tablet PO ×2 (09:55→21:31)
[2024-12-11] MEDS: Pantoprazole Sodium 40 MG in 0.9% Normal Saline (100mL MB+) 100 ML 330 MG IV ×2 (09:56→21:33)
[2024-12-11] MEDS: Folic Acid 1 MG in 0.9% Normal Saline (50mL Bag) 50 ML 200 MG IV (09:56)
[2024-12-11] MEDS: Senna/Docusate Sodium 1 Tablet 2 TABLET PO ×2 (09:57→21:33)
--- NOTE | 2024-12-11 10:37 | PN_ITS ---
Subjective Subjective Patient seen and examined. He had no active complaints. He had a pacemaker inserted today. He is also on Airvo. Review of systems otherwise negative. He has otherwise remained hemodynamically stable. Objective Data Objective Data Vital Signs: Vital Signs Temp Pulse Resp BP Pulse Ox O2 Del Method O2 Flow Rate 97.0 F L 60 21 H 109/71 95 Nasal Cannula 6 12/11/24 10:11 12/11/24 10:11 12/11/24 10:11 12/11/24 10:11 12/11/24 10:11 12/11/24 10:11 12/11/24 10:11 FiO2 85 12/11/24 09:26 Oxygen Flow Rate (L/min) 6 Oxygen Delivery Method Nasal Cannula Weight: 135 lb 12.876 oz Body Mass Index (BMI) 20.5 Intake & Output: Intake and Output for Last 24 Hours 12/09/24 12/10/24 12/11/24 23:59 23:59 23:59 Intake Total 1125.95 / 1128.95 1687.05 / 1688.92 1487.71 / 1487.71 Output Total 1050 / 1450 750 / 800 350 / 350 Balance 75.95 / -321.05 937.05 / 888.92 1137.71 / 1137.71 Lab / Micro Data 12/09/24 03:48 12/11/24 04:45 Labs: Laboratory Results - last 24 hr 12/10/24 22:35: Sodium 141, Potassium 4.6, Chloride 109 H, Carbon Dioxide 21.6, Anion Gap 10, BUN 31 H, Creatinine 2.46 H, Estim Creat Clear Calc 19.15 L, Est GFR (MDRD) Non-Af 25 L, BUN/Creatinine Ratio 12.8, Glucose 126 H, Calcium 7.7 12/11/24 04:45: Sodium 141, Potassium 4.3, Chloride 108, Carbon Dioxide 22.6, Anion Gap 10, BUN 33 H, Creatinine 2.41 H, Estim Creat Clear Calc 19.55 L, Est GFR (MDRD) Non-Af 26 L, BUN/Creatinine Ratio 13.7, Glucose 159 H, Calcium 8.2, M agnesium 2.4 H Physical Exam Const alert, oriented x3 and no apparent distress Constitutional Narrative: frail, weak General Appearance: cooperative HEENT normocephalic and head/scalp atraumatic Eyes PERRL and EOMs intact bilaterally Neck no lymphadenopathy and supple Lymph Lymphatic: no lymphadenopathy noted and no lymphedema noted Resp Resp Narrative: mildly diminished breath sounds bibasally, no wheezes or crackles. On AirVo Cardio S1 normal heart sound, S2 normal heart sound and no murmurs Cardio Narrative: bradycardic GI normal to inspection, nondistended, normoactive bowel sounds, soft to palpation, non-tender and non-distended Extremity normal capillary refill, no clubbing, cyanosis or edema and no calf tenderness General Extremity: no tenderness to palpation of joints or extremities Skin General Skin Exam: no breakdown Neuro CN's II-XII intact bilaterally and no focal motor deficits Motor Exam: strength 5/5 throughout and general weakness Psych thought process normal and cooperative Appearance: appropriate Assessment & Plan Assessment/Plan (1) Elevated troponin: (2) Bright red blood per rectum: (3) Bradycardia: PLAN: Plan #Nonstemi * had chest pain over the weekend, and troponin was 1700. * He had cardiac cath yesterday which showed EF of 60% and normal left ventricular wall motion and systolic function with previously placed stent in the mid LAD with 40 to 50% stenosis in second diagonal vessel with 90% proximal stenosis and a small vessel with mild diffuse distal disease present. Circumflex artery showed mild luminal irregularities less than 30% and RCA showed large dominant vessel with mild proximal disease and mild to moderate distal segment disease. * He had pacemaker insertion today. * cardiology on board * 2D echo showed EF of 60% with severely enlarged left atrium and moderately severe 3+ tricuspid valve insufficiency and severe pulmonary hypertension * #Acute exacerbation of HFpEF * 2D echo as above * [place] [address]. * on IV lasix * #Bradycardia: * Heart rate was down in the 40s and so he had pacemaker inserted today after he had a cath yesterday. * Cath findings as above * 2D echo findings also as above * cardiology on board. * #Hypokalemia: Resolved. Potassium is 4.3 today. #CKD IV * Cr at baseline. Will monitor. Cr today is 2.41. * #Rectal bleeding * complained of bright red bleeding per rectum. 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 Colonoscopy showed only stool on cilon with some areas that looked like bleeding sgigmata. * GI was ok with going back on his eliquis, though this is also on hold now as he is on heparin drip. * Now off heparin drip. He however had a pacemaker inserted today so we will get the clearance from cardiology about when it is okay to resume Eliquis. * #Hypertension * Now off nitro drip so we will resume Eliquis. * * #Atrial fibrillation with low ventricular rate * amodarone and eliquis on hold. Currently on heparin drip. * on cardizem. * #CAD s/p stents * s/p cardiac cath as above * on high intensity statin. Per cardiology to continue Imdur and ranolazine. * #BPH: on flomax and finasteride #Hypothyroidism: on synthroid #ALVARADO; on CPAP qhs. DVT prophylaxis: * Heparin drip discontinued that he has a pacemaker inserted today. * Cardiology to confirm when patient can be placed back on Eliquis. SCDs for now. Charges/Coding Visit Charges Inpatient E&M: 11098 [facility] L3
--- NOTE | 2024-12-11 10:40 | PCM.CONS.R ---
Assessment & Plan Assessment/Plan (1) CKD (chronic kidney disease) stage 4, GFR 15-29 ml/min: (2) Elevated troponin: (3) Bright red blood per rectum: PLAN: Plan This is a pleasant 84-year-old male with past medical history significant for COPD, A-fib, hypertension, CKD stage IV, BPH, ALVARADO, coronary artery disease, moderate pulmonary hypertension, chronic heart failure with reduced EF (echo 12/10/2024: Severe pulmonary hypertension, moderately severe 3+ tricuspid valve insufficiency, left atrium severely enlarged, EF 60%) who presented to the emergency room on December 04 with complaints of bright red blood per rectum. Patient was also noted to have detectable troponin. Since admission patient has undergone EGD and colonoscopy with findings of some bleeding areas which were treated. Patient also had heart cath yesterday and PPM placed today. Nephrology consulted in view of history of CKD. Currently renal function is stable and near patient's baseline. Serum creatinine was 2.9 on admission, creatinine improved to 2.31 on 12/07 and since then creatinine ranging around 2.4-2.5mg/dL. Baseline creatinine possibly around 2.8 to 3 mg/dL but patient does have fluctuations in serum creatinine from cardiorenal syndrome physiology. Chest x-ray from few days ago showing pulmonary edema, patient is on Lasix 20 mg IV twice daily. Patient's home baseline weight had been ranging around 126 pounds (around 57 kg), current weight 61 kg. Will continue with Lasix as ordered. Labs ordered for morning. Patient's creatinine yesterday before heart cath 2.57, creatinine today 2.41. Patient is nonoliguric. No acute indication for renal placement therapy. Further orders forthcoming as hospitalization evolves, thank you for allowing us to participate in the care of Mr. Hansen. Assessment and plan reviewed with Dr. Gudino. HPI Consult Data Date of Consult: 12/11/24 HPI Narrative HPI Narrative: RICHIE HANSEN, is a 84 M with past medical history significant for COPD, A-fib, hypertension, CKD stage IV, BPH, ALVARADO, coronary artery disease, moderate pulmonary hypertension, chronic heart failure with reduced EF, last known EF 53% who presented to the emergency room on December 04 with complaints of bright red blood per rectum. Patient was also noted to have detectable troponin. Patient was admitted for further evaluation and treatment. Since admission patient has been seen by GI and has undergone EGD and colonoscopy with findings of areas that were bleeding which were treated. Patient has also been seen by cardiology for detectable troponin, patient underwent heart cath 12/10 with findings of single-vessel CAD involving second diagonal vessel and previous stented LAD with moderate in-stent stenosis, preserved EF with recommendations of aggressive medical therapy. Patient also noted to be bradycardic, A-fib with complete heart block and underwent placement permanent pacemaker this morning. Nephrology consulted in view of patient's history of CKD. Patient has known history of chronic kidney disease and is being followed by Dr. Gudino in the [facility]. Patient was last seen in August 2024. Baseline creatinine had been ranging around mid 2 range. When patient was seen in the office in August he was noted to have a creatinine elevated at 4.6 which was drawn end of July 2024, his Lasix dose was reduced to 20 mg twice daily and repeat creatinine few weeks later improved to 3.0. Today patient denies any nausea or vomiting. States he feels tired but overall states feeling better. [facility] Medical History (Updated 12/11/24 @ 10:51 by Rachael Ruiz) Presence of cardiac pacemaker Complete heart 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 Intermittent complete heart block History of atrial fibrillation COPD (chronic obstructive pulmonary disease) with emphysema CHF (congestive heart failure) Hypoxia Chronic kidney disease Chronic anticoagulation Acute dyspnea Acute kidney injury Hypotension Abnormal abdominal ultrasound Persistent atrial fibrillation Hearing loss, left Hearing loss, right Anxiety Chronic pain Rheumatoid arthritis COPD (chronic obstructive pulmonary disease) Irregular heart beat Hypertension Hypothyroidism Hiatal hernia Acute constipation Acute exacerbation of chronic low back pain Wears glasses Thyroid disease Ambulates with cane Arthritis History of renal disease Anemia High cholesterol Easy bruising Excessive bleeding History of leukemia Back pain Difficulty chewing History of diverticulitis Gastric reflux Sleep apnea History of pain when walking History of edema History of echocardiogram History of stress test Cardiology follow-up encounter History of heart attack Nausea and vomiting Chronic anemia Diarrhea Colitis Sleep apnea Acute kidney injury superimposed on chronic kidney disease On amiodarone therapy Elevated LFTs Thoracic aortic aneurysm (TAA) Chronic heart failure with preserved ejection fraction (HFpEF) Nonrheumatic mitral (valve) insufficiency Atypical atrial flutter (12/2020) Elevated liver enzymes Debility Dysphagia Osteoarthritis History of colon polyps Cancer Kidney stones Kidney disease Non-smoker CPAP (continuous positive airway pressure) dependence Atrial fibrillation Myocardial infarct Chronic renal insufficiency Acute gastrointestinal bleeding Chronic kidney disease Benign prostatic hyperplasia Stage 3b chronic kidney disease GI bleed (2013) Non-rheumatic tricuspid valve insufficiency Secondary pulmonary arterial hypertension Essential (primary) hypertension BPH (benign prostatic hyperplasia) History of hyperthyroidism Paroxysmal atrial fibrillation 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 heart disease of [place] coronary artery without angina pectoris HLD (hyperlipidemia) Home Medications ?Medication ?Instructions ?Recorded ?Last Taken ?Type tamsulosin 0.4 mg capsule 0.4 mg PO BID PROSTATE 11/18/21 12/03/24 History vitamin B complex 1 cap PO BID SUPPLEMENT 05/01/22 12/03/24 History ascorbic acid (vitamin C) 500 mg 500 mg PO BID SUPPLEMENT 07/20/22 12/03/24 History tablet finasteride 5 mg tablet 5 mg PO DAILY PROSTATE 08/05/22 12/03/24 History cholecalciferol (vitamin D3) 25 1,000 unit PO QHS SUPPLEMENT 02/19/23 12/03/24 History mcg (1,000 unit) capsule (Vitamin D3) empagliflozin 10 mg tablet 10 mg PO DAILY DIABTETES #0 tabs 07/22/23 12/03/24 Rx (Jardiance) isosorbide mononitrate 30 mg 30 mg PO DAILY CHEST PAIN 02/28/24 12/03/24 History tablet,extended release 24 hr magnesium chloride 64 mg 64 mg PO BID SUPPLEMENT 02/28/24 12/03/24 History (magnesium chloride) tablet,delayed release (Mag 64) trazodone 50 mg tablet 25 mg PO QHS INSOMNIA 02/28/24 12/03/24 History amiodarone 100 mg tablet 100 mg PO BID HEART #180 tabs 02/29/24 12/03/24 Rx ferrous sulfate 325 mg (65 mg 325 mg PO QHS ANEMIA 03/20/24 12/03/24 History iron) tablet (Feosol) levothyroxine 50 mcg tablet 50 mcg PO DAILY THYROID 03/20/24 12/03/24 History apixaban 2.5 mg tablet (Eliquis) 2.5 mg PO BID Anticoagulant #60 03/24/24 12/03/24 Rx tabs diltiazem HCl 120 mg 120 mg PO DAILY heart rate 30 days 04/25/24 12/03/24 Rx capsule,extended release 24 hr #30 caps furosemide 20 mg tablet 20 mg PO BID fluid overload 08/28/24 12/03/24 History nitroglycerin 0.4 mg sublingual 0.4 mg sublingual Q5M PRN 08/28/24 Unknown Rx tablet Cardiac/Chest Pain #25 tabs pantoprazole 20 mg tablet,delayed 20 mg PO DAILY Gerd 08/28/24 12/03/24 History release potassium chloride 20 mEq 20 meq PO BID supplement 08/28/24 12/03/24 History tablet,extended release(part/cryst) acetaminophen 500 mg tablet 500 mg PO TID PRN pain 12/04/24 12/03/24 History (Acetaminophen Extra Strength) albuterol sulfate 2.5 mg/0.5 mL 2.5 mg inhalation Q6H PRN pain 12/04/24 Unknown History solution for nebulization baclofen 10 mg tablet 5 mg PO TID PRN muscle pain 12/04/24 12/03/24 History calcium carbonate (Antacid 400 mg PO Q6H Gerd 12/04/24 12/03/24 History (calcium carbonate)) calcium citrate 200 mg PO BID SUPPLEMENT 12/04/24 12/03/24 History clonidine HCl 0.1 mg tablet 0.05 - 0.1 mg PO DAILY PRN BP 12/04/24 Unknown History famotidine 20 mg tablet 20 mg PO BID Cardiac stent 12/04/24 12/03/24 History hydralazine 50 mg tablet 50 mg PO 4X/DAY B/P 12/04/24 12/03/24 History hydromorphone 2 mg tablet 1 - 2 mg PO QHS CHEST PAIN 12/04/24 12/03/24 History lidocaine 5 % topical patch 1 patch topical Q24H Pain 12/04/24 12/03/24 History (DermacinRx Lidocan) loratadine 10 mg tablet 10 mg PO DAILY allergies 12/04/24 12/03/24 History (Allerclear) meclizine 12.5 mg tablet 12.5 mg PO Q8H PRN dizziness 12/04/24 Unknown History ondansetron 4 mg disintegrating 4 mg PO Q4H PRN nausea 12/04/24 Unknown History tablet simethicone 125 mg capsule (Gas 125 mg PO TIDCM Gerd 12/04/24 12/03/24 History Relief (simethicone)) zoledronic acid 5 mg/100 mL in 1 ea IV .COMPLEX Bone 12/04/24 Unknown History mannitol 5 %-water intravenous piggybck (Reclast) Allergy/AdvReac Type Severity Reaction Status Date / Time diclofenac Allergy rash Verified 12/04/24 07:22 prednisone Allergy Rash Verified 12/04/24 07:22 Family History Father Cancer Prostate cancer Mother Hypertension Sister Hypertension Surgical History History of colonoscopy (03/26/24) History of back surgery History of cardiac catheterization History of esophagogastroduodenoscopy (EGD) History of cardioversion (06/18/19) History of radiofrequency ablation procedure for cardiac arrhythmia (11/11/11) History of electrophysiologic study (08/08/00) History of left heart catheterization (07/17/12) History of hemorrhoidectomy History of Zenaida fundoplication History of coronary artery stent placement (08/04/00) History of hernia repair History of back surgery Social History household members: none Smoking Status: Never smoker alcohol intake: never substance use type: does not use caffeine: No ROS ROS Narrative As in HPI Physical Exam Narrative Alert and oriented x 3, no apparent distress S1, S2, RRR Lung sounds clear anteriorly Abdomen soft, nontender No edema bilateral lower legs or feet Lab / Micro Data 12/09/24 03:48 12/11/24 04:45 Labs: Laboratory Results - last 24 hr 12/10/24 22:35: Sodium 141, Potassium 4.6, Chloride 109 H, Carbon Dioxide 21.6, Anion Gap 10, BUN 31 H, Creatinine 2.46 H, Estim Creat Clear Calc 19.15 L, Est GFR (MDRD) Non-Af 25 L, BUN/Creatinine Ratio 12.8, Glucose 126 H, Calcium 7.7 12/11/24 04:45: Sodium 141, Potassium 4.3, Chloride 108, Carbon Dioxide 22.6, Anion Gap 10, BUN 33 H, Creatinine 2.41 H, Estim Creat Clear Calc 19.55 L, Est GFR (MDRD) Non-Af 26 L, BUN/Creatinine Ratio 13.7, Glucose 159 H, Calcium 8.2, Magnesium 2.4 H
[2024-12-11] MEDS: Enoxaparin 30 MG/0.3 ML Syringe SC (14:39)
[2024-12-11] MEDS: MENTHOL 226.8 GM JAR 1 APPLIC TOPICAL ×2 (15:56→22:58)
[2024-12-11] MEDS: Furosemide 20 MG/2 ML VIAL IV ×2 (17:39)
[2024-12-11] MEDS: traZODone 50 MG Tablet 25 MG PO (21:30)
[2024-12-11] MEDS: Ferrous Sulfate 325 MG Tablet PO (21:30)
[2024-12-11] MEDS: Atorvastatin Calcium 40 MG Tablet PO (21:31)
[2024-12-12] VITALS (27 sets, daily range): BP systolic 92–121; BP diastolic 48–85; PULSE 60–72; RESP 12–26; TEMP 36.6–37.2; O2SAT 93–100; BMI 20.5
[2024-12-12 03:51] LABS: Hematocrit 20.7 % (40-54); Hemoglobin 7.1 g/dL (13.0-16.5); Mean Corp Hgb Conc 34.3 g/dL (32-36); Mean Corpuscular Hgb 38.6 pg (27.0-32.0); Mean Corpuscular Volume 112.5 fL (80-94); Mean Platelet Vol. 10.3 fl (6.2-12.0); Platelet Count 193 K/mm3 (150-450); RBC Distribution Width CV 15.7 % (11.6-14.6); RBC Distribution Width SD 64.9 fl (35.1-43.9); Red Blood Count 1.84 M/mm3 (4.6-6.2); White Blood Count 15.1 K/mm3 (4.4-11.0)
[2024-12-12 04:09] LABS: Anion Gap 10 (5-15); BUN 42 mg/dL (4-19); Calcium,Total 7.3 mg/dL (7.6-11.0); Carbon Dioxide 22.2 mmol/L (21.0-32.0); Chloride 107 mmol/L (98-108); Creatinine, Serum 2.62 mg/dL (0.70-1.20); EST Glomerular Filtration Rate 24 (>60); Estimated Creatinine Clearance 18.61 ml/min (50-250); Glucose 106 mg/dL (70-99); Potassium 4.1 mmol/L (3.3-5.1); Sodium Level 139 mmol/L (133-145)
[2024-12-12] MEDS: 0.9% Saline Lock 10 ML Syringe IV ×2 (05:15→20:45)
[2024-12-12] MEDS: Isosorbide DN 30 MG Tablet PO ×3 (05:15→20:56)
[2024-12-12] MEDS: Levothyroxine 50 MCG Tablet PO (05:15)
--- NOTE | 2024-12-12 05:55 | RAD_ITS ---
PROCEDURE: CHEST 3 VIEW 12/12/2024 REASON FOR EXAM: POST PERMANANT ICD/PACEMAKER TECHNIQUE: Frontal views with inspiration and expiration and 2 lateral to include the entire chest, 4 total images COMPARISON: 12/09/2024 FINDINGS: The patient is rotated to the right which unfolds the thoracic aorta and accentuates the mediastinum. Status post single lead pacemaker. No pneumothorax identified. Interval development of a severe asymmetric ltihn-acigkww-fpsn-left perihilar ill-defined airspace opacities and may represent marked pulmonary edema, possible congestive heart failure, clinically correlate. Cardiac silhouette is again noted to be enlarged which may represent cardiomegaly and/or a pericardial effusion not excluded. Possible trace left pleural fluid. Multilevel vertebral compression deformities and areas of vertebroplasty noted. Severe wedge compression deformities at what appears to be T11 and T9. The vertebral bodies are not well evaluated on the lateral views due to the significant airspace opacities and osteopenia. RAD/Chest 3 View IMPRESSION: The patient is rotated to the right which unfolds the thoracic aorta and accent uates the mediastinum. Status post single lead pacemaker. No pneumothorax identified. Interval development of a severe asymmetric uftch-hecisvz-dnvm-left perihilar i ll-defined airspace opacities and may represent marked pulmonary edema, possible congestive heart failure, clinically correlate . Cardiac silhouette is again noted to be enlarged which may represent cardiomega ly and/or a pericardial effusion not excluded. Possible trace left pleural fluid. Reading Location: [id number]
--- NOTE | 2024-12-12 08:56 | PN.CARD_ITS ---
Subjective Subjective Patient resting recumbent position in bed. He did have issues with hypoxia requiring increasing supplemental oxygen overnight. The patient also notes that he was coughing significantly trying to eat his breakfast. The nursing staff also reports that he becomes hypoxic after eating. The patient's post permanent pacemaker implantation chest x-ray reveals marked right perihilar opacities and some along the left perihilar area as well. Patient's pacemaker device check shows normal functioning this morning. Objective Data Vital Signs: Vital Signs Temp Pulse Resp BP Pulse Ox O2 Del Method O2 Flow Rate 98.1 F 60 18 101/63 97 Nasal Cannula 15 12/12/24 05:00 12/12/24 06:00 12/12/24 06:00 12/12/24 06:00 12/12/24 08:00 12/12/24 08:00 12/12/24 08:00 FiO2 85 12/11/24 09:26 Oxygen Flow Rate (L/min) 15 Oxygen Delivery Method Nasal Cannula Weight: 135 lb 9.6 oz Body Mass Index (BMI) 20.5 Intake & Output: Intake and Output for Last 24 Hours 12/10/24 12/11/24 12/12/24 23:59 23:59 23:59 Intake Total 1687.05 / 1688.92 2317.71 / 2317.71 Output Total 750 / 800 1160 / 1160 350 / 350 Balance 937.05 / 888.92 1157.71 / 1157.71 -350 / -350 Lab / Micro Data Attestation: I reviewed the patient's lab results. 12/12/24 03:45 12/12/24 03:45 Labs: Laboratory Results - last 24 hr 12/12/24 03:45: WBC 15.1 H, RBC 1.84 L, Hgb 7.1 L, Hct 20.7 L, MCV 112.5 H, MCH 38.6 H, MCHC 34.3, RDW Std Deviation 64.9 H, RDW Coeff of Pablo 15.7 H, Plt Count 193, MPV 10.3, Sodium 139, Potassium 4.1, Chloride 107, Carbon Dioxide 22.2, Anion Gap 10, BUN 42 H, Creatinine 2.62 H, Estim Creat Clear Calc 18.61 L, Est GFR (MDRD) Non-Af 24 L, BUN/Creatinine Ratio 16.0, Glucose 106 H, Calcium 7.3 L Rhythm Strip Rhythm Strip: paced rhythm Rate: 60 Ectopy: PVC(s) Cardiology Labs/Tests 12/12/24 03:45: WBC 15.1 H, RBC 1.84 L, Hgb 7.1 L, Hct 20.7 L, MCV 112.5 H, MCH 38.6 H, MCHC 34.3, Plt Count 193, MPV 10.3, Sodium 139, Potassium 4.1, Chloride 107, Carbon Dioxide 22.2, Anion Gap 10, BUN 42 H, Creatinine 2.62 H, Est GFR (MDRD) Non-Af 24 L, BUN/Creatinine Ratio 16.0, Glucose 106 H, Calcium 7.3 L Rhythm: EKG: ECHO: Stress Test: Cardiac Cath: PCI: CT Surgery: Holter monitor: EPS: PPM: CXR: Chest CT Scan: Radiography Diagnostic Testing: Radiology Impression Chest X-Ray 12/12/24 05:55 IMPRESSION: The patient is rotated to the right which unfolds the thoracic aorta and accentuates the mediastinum. Status post single lead pacemaker. No pneumothorax identified. Interval development of a severe asymmetric vblyy-afrbija-meyn-left perihilar ill-defined airspace opacities and may represent marked pulmonary edema, possible congestive heart failure, clinically correlate. Cardiac silhouette is again noted to be enlarged which may represent cardiomegaly and/or a pericardial effusion not excluded. Possible trace left pleural fluid. Reading Location: [facility] Physical Exam Const alert and oriented x3 HEENT normocephalic Eyes EOMs intact bilaterally Neck no JVD Neck Narrative: Ecchymotic areas on both sides of his upper thorax lower neck area. Chest Chest Narrative: Pacer site is clean and dry. Chest: left pectoral incision Resp Auscultation: crackles bilateral base Cardio Rate: regular rate Rhythm: regular rhythm Heart Sounds: S1 normal, S2 normal and murmur systolic I/ soft right sternal border; Negative for click or gallop Extremity no pedal edema Neuro Neuro Narrative: Alert and oriented x 3 Psych mental status grossly normal Assessment & Plan Assessment/Plan (1) Complete heart 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: PLAN: Patient developed complete heart block in the face of his chronic atrial fibrillation. He underwent permanent pacemaker plantation 12/11/[address] Molina. Patient's pacer check shows normal functioning this morning. His chest x-ray shows no evidence of pneumothorax. (2) Chronic kidney disease: QUALIFIERS: Chronic kidney disease stage: stage 4 (GFR 15-29) Q ualified Code(s): N18.4 - Chronic kidney disease, stage 4 (severe) PLAN: Patient carries a history of chronic renal insufficiency. He has stage IV at this point in time. This has been managed by the primary service and ICU team. (3) Persistent atrial fibrillation: PLAN: Patient has a history of persistent atrial fibrillation. His amiodarone has been discontinued. And Eliquis had to be held due to his hemoglobin down to 7.1. Patient had developed complete heart block requiring permanent pacemaker implantation. The permanent pacemaker was implanted yesterday. (4) Combined systolic and diastolic congestive heart failure: QUALIFIERS: Heart failure chronicity: acute on chronic Qualified Code(s): I50.43 - Acute on chronic combined systolic (congestive) and diastolic (congestive) heart failure PLAN: Patient's chest x-ray shows right greater than left perihilar changes. This could be related to volume overload, and it could also be related to the patient's possible aspiration given his hypoxia that seems to occur after he eats. He did tell me today that he started coughing when he was trying to eat breakfast. At this point time I would continue his current dose of furosemide 40 mg twice daily. Asked the nursing staff to get speech to evaluate him for possible aspiration. (5) Iron deficiency anemia: QUALIFIERS: Iron deficiency anemia type: unspecified iron deficiency Qualified Code(s): D50.9 - Iron deficiency anemia, unspecified PLAN: Patient's hemoglobin was 7.1 this morning. This has been followed and treated by the primary service. PLAN: Plan 1. Continue current furosemide 40 mg IV twice daily. 2. Monitor renal function closely. 3. From a cardiovascular standpoint the patient can be up in the room to the chair as tolerated. 4. Will continue to hold oral anticoagulation given his hemoglobin of 7.1. Reinstitution of oral anticoagulation will depend on the primary service's recommendation. Charges/Coding Visit Charges Inpatient E&M: 48265 Subs Hosp L3
[2024-12-12] MEDS: Pantoprazole Sodium 40 MG in 0.9% Normal Saline (100mL MB+) 100 ML 330 MG IV (10:36)
[2024-12-12] MEDS: Folic Acid 1 MG in 0.9% Normal Saline (50mL Bag) 50 ML 200 MG IV (10:37)
[2024-12-12] MEDS: Furosemide 40 MG/4 ML Vial IV (10:37)
--- NOTE | 2024-12-12 10:50 | PN_ITS ---
Subjective Subjective Patient seen and examined. He complained of choking with swallowing this morning. He denied any dizziness, shortness of breath though he was up to 15L of oxygen today. Review of systems is otherwise negative. Objective Data Objective Data Vital Signs: Vital Signs Temp Pulse Resp BP Pulse Ox O2 Del Method O2 Flow Rate 98.1 F 60 18 101/63 97 Nasal Cannula 15 12/12/24 05:00 12/12/24 06:00 12/12/24 06:00 12/12/24 06:00 12/12/24 08:00 12/12/24 08:00 12/12/24 08:00 FiO2 85 12/11/24 09:26 Oxygen Flow Rate (L/min) 15 Oxygen Delivery Method Nasal Cannula Weight: 135 lb 9.6 oz Body Mass Index (BMI) 20.5 Intake & Output: Intake and Output for Last 24 Hours 12/10/24 12/11/24 12/12/24 23:59 23:59 23:59 Intake Total 1687.05 / 1688.92 2317.71 / 2317.71 Output Total 750 / 800 1160 / 1160 350 / 350 Balance 937.05 / 888.92 1157.71 / 1157.71 -350 / -350 Lab / Micro Data 12/12/24 03:45 12/12/24 03:45 Labs: Laboratory Results - last 24 hr 12/12/24 03:45: WBC 15.1 H, RBC 1.84 L, Hgb 7.1 L, Hct 20.7 L, MCV 112.5 H, MCH 38.6 H, MCHC 34.3, RDW Std Deviation 64.9 H, RDW Coeff of Pablo 15.7 H, Plt Count 193, MPV 10.3, Sodium 139, Potassium 4.1, Chloride 107, Carbon Dioxide 22.2, Anion Gap 10, BUN 42 H, Creatinine 2.62 H, Estim Creat Clear Calc 18.61 L, Est GFR (MDRD) Non-Af 24 L, BUN/Creatinine Ratio 16.0, Glucose 106 H, Calcium 7.3 L Radiography Diagnostic Testing: Radiology Impression Chest X-Ray 12/12/24 05:55 IMPRESSION: The patient is rotated to the right which unfolds the thoracic aorta and accentuates the mediastinum. Status post single lead pacemaker. No pneumothorax identified. Interval development of a severe asymmetric buarm-lstkxes-kfdz-left perihilar ill-defined airspace opacities and may represent marked pulmonary edema, possible congestive heart failure, clinically correlate. Cardiac silhouette is again noted to be enlarged which may represent cardiomegaly and/or a pericardial effusion not excluded. Possible trace left pleural fluid. Reading Location: [facility] Rhythm Strip Rhythm Strip: paced rhythm Rate: 60 Ectopy: PVC(s) Physical Exam Const alert, oriented x3 and no apparent distress Constitutional Narrative: frail, weak General Appearance: cooperative HEENT normocephalic and head/scalp atraumatic Eyes PERRL and EOMs intact bilaterally Neck no lymphadenopathy and supple Lymph Lymphatic: no lymphadenopathy noted and no lymphedema noted Resp Resp Narrative: mildly diminished breath sounds bibasally, no wheezes or crackles. On 15L of oxygen by nasal canula Cardio S1 normal heart sound, S2 normal heart sound and no murmurs GI normal to inspection, nondistended, normoactive bowel sounds, soft to palpation, non-tender and non-distended Extremity normal capillary refill, no clubbing, cyanosis or edema and no calf tenderness General Extremity: no tenderness to palpation of joints or extremities Skin General Skin Exam: no breakdown Neuro CN's II-XII intact bilaterally and no focal motor deficits Motor Exam: strength 5/5 throughout and general weakness Psych thought process normal and cooperative Psych Narrative: frail and weak Appearance: appropriate Assessment & Plan Assessment/Plan (1) Elevated troponin: (2) Bright red blood per rectum: (3) Bradycardia: PLAN: Plan #Nonstemi * had chest pain over the weekend, and troponin was 1700. * He had cardiac cath yesterday which showed EF of 60% and normal left ventricular wall motion and systolic function with previously placed stent in the mid LAD with 40 to 50% stenosis in second diagonal vessel with 90% proximal stenosis and a small vessel with mild diffuse distal disease present. Circumflex artery showed mild luminal irregularities less than 30% and RCA showed large dominant vessel with mild proximal disease and mild to moderate distal segment disease. * He had pacemaker insertion on 12/11/2024 * cardiology on board * 2D echo showed EF of 60% with severely enlarged left atrium and moderately severe 3+ tricuspid valve insufficiency and severe pulmonary hypertension * #Acute exacerbation of HFpEF * 2D echo as above * [place] [address]. * on IV lasix. Patient on 15 L of oxygen so Lasix increased to 40 mg twice daily today. * Chest x-ray done this morning showed interval development of a severe asymmetric right greater than left perihilar ill-defined airspace opacities which may represent marked pulmonary edema. Patient however * Is likely aspirating as he said he was coughing whilst eating today. Speech therapy therefore consulted to evaluate patient. IV Lasix increased as stated above. * WBC is also up to 15.1 today. Will therefore cover with IV antibiotics for presumptive aspiration pneumonia * #Dysphagia with likely aspiration * As above * * #Acute on chronic hypoxic respiratory failure * Due to heart failure and probable aspiration pneumonia. Now on 15 L of oxygen. Was on AirVo yesterday * titrate oxygen to maintain sats more than 90%. * Consult pulmonology * #Bradycardia: * s/p pacemaker insertion. Stable. * #Hypokalemia: Resolved. Potassium is 4.3 today. #CKD IV * Cr at baseline. Will monitor. Cr today is 2.41. * #Rectal bleeding * complained of bright red bleeding per rectum. 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 Colonoscopy showed only stool on cilon with some areas that looked like bleeding sgigmata. * GI was ok with going back on his eliquis, though this is also on hold now as he is on heparin drip. * Now off heparin drip. He however had a pacemaker inserted so we will get the clearance from cardiology about when it is okay to resume Eliquis. * #Acute on chronic anemia: * Hemoglobin today 7.1. Was 9 yesterday. Will hold Lovenox. * Repeat H&H. Transfuse to keep hemoglobin more than 7. * He does have a history of rectal bleeding but denies any such bleeding overnight. * repeat H&H #Hypertension * Now off nitro drip. * usually on hydralazine and cardizem at home but these are still on hold. * #Atrial fibrillation with low ventricular rate * amodarone and eliquis on hold. * on cardizem. * #CAD s/p stents * s/p cardiac cath as above * on high intensity statin. Per cardiology to continue Imdur and ranolazine. * #BPH: on flomax and finasteride #Hypothyroidism: on synthroid #ALVARADO; on CPAP qhs. DVT prophylaxis: * was placed on lovenox yesterday but this was discontinued Charges/Coding Visit Charges Inpatient E&M: 05146 Subs Hosp L3
--- NOTE | 2024-12-12 11:09 | PCM.PN.REN ---
Subjective Subjective Events noted. appears somewhat struggling to breathe. Objective Data Objective Data Vital Signs: Vital Signs Temp Pulse Resp BP Pulse Ox O2 Del Method O2 Flow Rate 98.1 F 60 18 101/63 97 Nasal Cannula 15 12/12/24 05:00 12/12/24 06:00 12/12/24 06:00 12/12/24 06:00 12/12/24 08:00 12/12/24 08:00 12/12/24 08:00 FiO2 85 12/11/24 09:26 Oxygen Flow Rate (L/min) 15 Oxygen Delivery Method Nasal Cannula Weight: 61.507 kg Body Mass Index (BMI) 20.5 Intake & Output: Intake and Output for Last 24 Hours 12/10/24 12/11/24 12/12/24 23:59 23:59 23:59 Intake Total 1687.05 / 1688.92 2317.71 / 2317.71 Output Total 750 / 800 1160 / 1160 350 / 350 Balance 937.05 / 888.92 1157.71 / 1157.71 -350 / -350 Lab / Micro Data 12/12/24 03:45 12/12/24 03:45 Labs: Laboratory Results - last 24 hr 12/12/24 03:45: WBC 15.1 H, RBC 1.84 L, Hgb 7.1 L, Hct 20.7 L, MCV 112.5 H, MCH 38.6 H, MCHC 34.3, RDW Std Deviation 64.9 H, RDW Coeff of Pablo 15.7 H, Plt Count 193, MPV 10.3, Sodium 139, Potassium 4.1, Chloride 107, Carbon Dioxide 22.2, Anion Gap 10, BUN 42 H, Creatinine 2.62 H, Estim Creat Clear Calc 18.61 L, Est GFR (MDRD) Non-Af 24 L, BUN/Creatinine Ratio 16.0, Glucose 106 H, Calcium 7.3 L Radiography Diagnostic Testing: Radiology Impression Chest X-Ray 12/12/24 05:55 IMPRESSION: The patient is rotated to the right which unfolds the thoracic aorta and accentuates the mediastinum. Status post single lead pacemaker. No pneumothorax identified. Interval development of a severe asymmetric soiwb-siwnvqe-ytpp-left perihilar ill-defined airspace opacities and may represent marked pulmonary edema, possible congestive heart failure, clinically correlate. Cardiac silhouette is again noted to be enlarged which may represent cardiomegaly and/or a pericardial effusion not excluded. Possible trace left pleural fluid. Reading Location: [facility] Rhythm Strip Rhythm Strip: paced rhythm Rate: 60 Ectopy: PVC(s) Physical Exam Narrative Alert and oriented x 3, no apparent distress S1, S2, RRR Lung sounds clear anteriorly Abdomen soft, nontender No edema bilateral lower legs or feet Assessment & Plan Assessment/Plan (1) CKD (chronic kidney disease) stage 4, GFR 15-29 ml/min: (2) Elevated troponin: (3) Bright red blood per rectum: PLAN: Plan This is a pleasant 84-year-old male with past medical history significant for COPD, A-fib, hypertension, CKD stage IV, BPH, ALVARADO, coronary artery disease, moderate pulmonary hypertension, chronic heart failure with reduced EF (echo 12/10/2024: Severe pulmonary hypertension, moderately severe 3+ tricuspid valve insufficiency, left atrium severely enlarged, EF 60%) who presented to the emergency room on December 04 with complaints of bright red blood per rectum. Patient was also noted to have detectable troponin. Since admission patient has undergone EGD and colonoscopy with findings of some bleeding areas which were treated. Patient also had heart cath yesterday and PPM placed today. Nephrology consulted in view of history of CKD. Currently renal function is stable and near patient's baseline. Serum creatinine was 2.9 on admission, creatinine improved to 2.31 on 12/07 and since then creatinine ranging around 2.4-2.5mg/dL. Baseline creatinine possibly around 2.8 to 3 mg/dL but patient does have fluctuations in serum creatinine from cardiorenal syndrome physiology. Urine output has been okay, 1.1 L last 24 hours. Creatinine slightly higher today, expected from hemodynamic changes Labs from today reviewed. Hemoglobin is down to 7.1 from 9.0 about2 days ago. WBC is higher at 15. Chest x-ray images reviewed, significant pulmonary edema pattern but significant infiltrates/edema in the right middle lobe. As per my discussion with staff, he was choking on his food this morning. Discussed with hospitalist about possibility of aspiration pneumonia coexisting. Echocardiogram with decent ejection fraction. Increase Lasix to 40 mg twice a day today. Can go up to 80 mg if needed. Speech and swallow to see.
[2024-12-12 11:53] LABS: Hematocrit 24.6 % (40-54); Hemoglobin 8.2 g/dL (13.0-16.5)
[2024-12-12] MEDS: Ampicillin/Sulbactam 3 GM in 0.9% Normal Saline (100mL MB+) 100 ML IV ×2 (12:16→20:43)
[2024-12-12] MEDS: Acetaminophen 325 MG Tablet PO ×2 (12:17→20:01)
--- NOTE | 2024-12-12 12:50 | EX.PCM.CONCC ---
Assessment & Plan Assessment/Plan (1) Acute respiratory failure: PLAN: Plan RECOMMENDATIONS: 1. Ongoing diuresis as tolerated by hemodynamics and renal function. 2. Continue empiric antibiotics to cover for aspiration. 3. Agree with speech therapy evaluation prior to advancement of diet. 4. Maintain aspiration precautions. 5. Encourage incentive spirometer use and mobilize patient as tolerated. 6. Start empiric PAP therapy with naps and nightly, given history of obstructive sleep apnea. Positive pressure will aid in alveolar recruitment as well. IMPRESSIONS: 1. Acute hypoxemic respiratory failure Most likely secondary to acute decompensated heart failure. However, given the recent concerns for aspiration, it is reasonable to continue Unasyn empirically. Will recheck BNP and procalcitonin. I also suspect that the patient has a component of basilar atelectasis, which would likely improve with aggressive incentive spirometry. Given his history of obstructive sleep apnea, I will place an order for empiric BiPAP therapy to be utilized with naps and nightly, as the positive pressure will also aid in alveolar recruitment. In the interim, continue to wean supplemental oxygen to maintain saturations at or above 90%. Continue ongoing attempts at diuresis as tolerated by hemodynamics and renal function. 2. 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 3. History of chronic kidney disease/recent GI bleed/hypertension/atrial fibrillation/coronary artery disease/hypothyroidism Complicates care, management, recovery and prognosis. Continue home medications as indicated. Dietary advancement per speech therapy recommendations. This note was generated with DP7 Digital dictation software. It may contain incorrect words, spelling, and punctuation that were not noted in checking the note before signing. HPI Consult Data Date of Consult: 12/12/24 HPI Narrative Reason for Consultation: Hypoxemia HPI Narrative: The patient is an 84-year-old male, with a history as outlined below, who presented to the emergency department via EMS back on December 04 with bright red blood per rectum. The patient has a documented history of atrial fibrillation, obstructive sleep apnea, congestive heart failure, coronary artery disease and BPH. The patient reported to me that he is a lifelong non-smoker. He stated that he has never been diagnosed with COPD previously, despite documentation in the chart to the contrary. He does not utilize supplemental oxygen at his baseline. He stated that he was diagnosed with sleep apnea 20+ years ago while residing in [place]. He is currently being set up for a new CPAP machine, according to the patient. The patient's hospital course to date has been complicated by hypoxemia requiring supplemental oxygen along with persistent atrial fibrillation and acute on chronic heart failure with reduced ejection fraction. The patient also underwent endoscopic evaluation with gastroenterology with interventions performed. In addition, the patient had a permanent pacemaker placed and cardiac catheterization performed. His chronic kidney disease has been managed by nephrology. Today, the patient is resting comfortably in bed with speech therapy having recently completed an evaluation, given concerns of the patient's oxygen status worsens when he eats. He is maintaining appropriate oxygen saturations at the present time on 8 L/min via nasal cannula. His hemoglobin is stable at 8.2 g/dL. Overall, the patient is documented to be net +7.5 L for the hospitalization. His chest imaging continues to demonstrate stigmata of congestive heart failure. The patient was placed on Unasyn over concerns for aspiration. [facility] Medical History (Updated 12/12/24 @ 12:[address] Dinesh Peters, ) Presence of cardiac pacemaker Complete heart 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 Intermittent complete heart block History of atrial fibrillation COPD (chronic obstructive pulmonary disease) with emphysema CHF (congestive heart failure) Hypoxia Chronic kidney disease Chronic anticoagulation Acute dyspnea Acute kidney injury Hypotension Abnormal abdominal ultrasound Persistent atrial fibrillation Hearing loss, left Hearing loss, right Anxiety Chronic pain Rheumatoid arthritis COPD (chronic obstructive pulmonary disease) Irregular heart beat Hypertension Hypothyroidism Hiatal hernia Acute constipation Acute exacerbation of chronic low back pain Wears glasses Thyroid disease Ambulates with cane Arthritis History of renal disease Anemia High cholesterol Easy bruising Excessive bleeding History of leukemia Back pain Difficulty chewing History of diverticulitis Gastric reflux Sleep apnea History of pain when walking History of edema History of echocardiogram History of stress test Cardiology follow-up encounter History of heart attack Nausea and vomiting Chronic anemia Diarrhea Colitis Sleep apnea Acute kidney injury superimposed on chronic kidney disease On amiodarone therapy Elevated LFTs Thoracic aortic aneurysm (TAA) Chronic heart failure with preserved ejection fraction (HFpEF) Nonrheumatic mitral (valve) insufficiency Atypical atrial flutter (12/2020) Elevated liver enzymes Debility Dysphagia Osteoarthritis History of colon polyps Cancer Kidney stones Kidney disease Non-smoker CPAP (continuous positive airway pressure) dependence Atrial fibrillation Myocardial infarct Chronic renal insufficiency Acute gastrointestinal bleeding Chronic kidney disease Benign prostatic hyperplasia Stage 3b chronic kidney disease GI bleed (2012) Non-rheumatic tricuspid valve insufficiency Secondary pulmonary arterial hypertension Essential (primary) hypertension BPH (benign prostatic hyperplasia) History of hyperthyroidism Paroxysmal atrial fibrillation 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 heart disease of [place] coronary artery without angina pectoris HLD (hyperlipidemia) Home Medications ?Medication ?Instructions ?Recorded ?Last Taken ?Type tamsulosin 0.4 mg capsule 0.4 mg PO BID PROSTATE 11/18/21 12/03/24 History vitamin B complex 1 cap PO BID SUPPLEMENT 05/01/22 12/03/24 History ascorbic acid (vitamin C) 500 mg 500 mg PO BID SUPPLEMENT 07/20/22 12/03/24 History tablet finasteride 5 mg tablet 5 mg PO DAILY PROSTATE 08/05/22 12/03/24 History cholecalciferol (vitamin D3) 25 1,000 unit PO QHS SUPPLEMENT 02/19/23 12/03/24 History mcg (1,000 unit) capsule (Vitamin D3) empagliflozin 10 mg tablet 10 mg PO DAILY DIABTETES #0 tabs 07/22/23 12/03/24 Rx (Jardiance) isosorbide mononitrate 30 mg 30 mg PO DAILY CHEST PAIN 02/28/24 12/03/24 History tablet,extended release 24 hr magnesium chloride 64 mg 64 mg PO BID SUPPLEMENT 02/28/24 12/03/24 History (magnesium chloride) tablet,delayed release (Mag 64) trazodone 50 mg tablet 25 mg PO QHS INSOMNIA 02/28/24 12/03/24 History amiodarone 100 mg tablet 100 mg PO BID HEART #180 tabs 02/29/24 12/03/24 Rx ferrous sulfate 325 mg (65 mg 325 mg PO QHS ANEMIA 03/20/24 12/03/24 History iron) tablet (Feosol) levothyroxine 50 mcg tablet 50 mcg PO DAILY THYROID 03/20/24 12/03/24 History apixaban 2.5 mg tablet (Eliquis) 2.5 mg PO BID Anticoagulant #60 03/24/24 12/03/24 Rx tabs diltiazem HCl 120 mg 120 mg PO DAILY heart rate 30 days 04/25/24 12/03/24 Rx capsule,extended release 24 hr #30 caps furosemide 20 mg tablet 20 mg PO BID fluid overload 08/28/24 12/03/24 History nitroglycerin 0.4 mg sublingual 0.4 mg sublingual Q5M PRN 08/28/24 Unknown Rx tablet Cardiac/Chest Pain #25 tabs pantoprazole 20 mg tablet,delayed 20 mg PO DAILY Gerd 08/28/24 12/03/24 History release potassium chloride 20 mEq 20 meq PO BID supplement 08/28/24 12/03/24 History tablet,extended release(part/cryst) acetaminophen 500 mg tablet 500 mg PO TID PRN pain 12/04/24 12/03/24 History (Acetaminophen Extra Strength) albuterol sulfate 2.5 mg/0.5 mL 2.5 mg inhalation Q6H PRN pain 12/04/24 Unknown History solution for nebulization baclofen 10 mg tablet 5 mg PO TID PRN muscle pain 12/04/24 12/03/24 History calcium carbonate (Antacid 400 mg PO Q6H Gerd 12/04/24 12/03/24 History (calcium carbonate)) calcium citrate 200 mg PO BID SUPPLEMENT 12/04/24 12/03/24 History clonidine HCl 0.1 mg tablet 0.05 - 0.1 mg PO DAILY PRN BP 12/04/24 Unknown History famotidine 20 mg tablet 20 mg PO BID Cardiac stent 12/04/24 12/03/24 History hydralazine 50 mg tablet 50 mg PO 4X/DAY B/P 12/04/24 12/03/24 History hydromorphone 2 mg tablet 1 - 2 mg PO QHS CHEST PAIN 12/04/24 12/03/24 History lidocaine 5 % topical patch 1 patch topical Q24H Pain 12/04/24 12/03/24 History (DermacinRx Lidocan) loratadine 10 mg tablet 10 mg PO DAILY allergies 12/04/24 12/03/24 History (Allerclear) meclizine 12.5 mg tablet 12.5 mg PO Q8H PRN dizziness 12/04/24 Unknown History ondansetron 4 mg disintegrating 4 mg PO Q4H PRN nausea 12/04/24 Unknown History tablet simethicone 125 mg capsule (Gas 125 mg PO TIDCM Gerd 12/04/24 12/03/24 History Relief (simethicone)) zoledronic acid 5 mg/100 mL in 1 ea IV .COMPLEX Bone 12/04/24 Unknown History mannitol 5 %-water intravenous piggybck (Reclast) Allergy/AdvReac Type Severity Reaction Status Date / Time diclofenac Allergy rash Verified 12/04/24 07:22 prednisone Allergy Rash Verified 12/04/24 07:22 Family History Father Cancer Prostate cancer Mother Hypertension Sister Hypertension Surgical History History of colonoscopy (03/26/24) History of back surgery History of cardiac catheterization History of esophagogastroduodenoscopy (EGD) History of cardioversion (06/18/19) History of radiofrequency ablation procedure for cardiac arrhythmia (11/11/11) History of electrophysiologic study (08/08/00) History of left heart catheterization (07/17/12) History of hemorrhoidectomy History of Zenaida fundoplication History of coronary artery stent placement (08/04/00) History of hernia repair History of back surgery Social History household members: none Smoking Status: Never smoker alcohol intake: never substance use type: does not use caffeine: No ROS ROS Narrative 10 systems were reviewed with pertinent positives as noted in the HPI above. Physical Exam Const alert and no apparent distress Constitutional Narrative: Sitting in bedside recliner. General Appearance: cooperative HEENT normocephalic and head/scalp atraumatic Eyes PERRL, EOMs intact bilaterally and conjunctivae normal Neck supple General: trachea midline Chest inspection of chest normal Resp normal respiratory effort Auscultation: rales and diminished lung sounds Cardio regular rate and regular rhythm Heart Sounds: murmur GI normal to inspection, nondistended, normoactive bowel sounds Extremity no clubbing, cyanosis or edema Skin no rashes or lesions noted Neuro CN's II-XII intact bilaterally, moves all extremities and no focal motor deficits Psych cooperative and affect normal Lab / Micro Data 12/12/24 11:45 12/12/24 03:45 Labs: Laboratory Results - last 24 hr 12/12/24 03:45: WBC 15.1 H, RBC 1.84 L, Hgb 7.1 L, Hct 20.7 L, MCV 112.5 H, MCH 38.6 H, MCHC 34.3, RDW Std Deviation 64.9 H, RDW Coeff of Pablo 15.7 H, Plt Count 193, MPV 10.3, Sodium 139, Potassium 4.1, Chloride 107, Carbon Dioxide 22.2, Anion Gap 10, BUN 42 H, Creatinine 2.62 H, Estim Creat Clear Calc 18.61 L, Est GFR (MDRD) Non-Af 24 L, BUN/Creatinine Ratio 16.0, Glucose 106 H, Calcium 7.3 L 12/12/24 11:45: Hgb 8.2 L, Hct 24.6 L Rhythm Strip Rhythm Strip: paced rhythm Rate: 60 Ectopy: PVC(s) Imaging Radiology Impression Chest X-Ray 12/12/24 05:55 IMPRESSION: The patient is rotated to the right which unfolds the thoracic aorta and accentuates the mediastinum. Status post single lead pacemaker. No pneumothorax identified. Interval development of a severe asymmetric hfdue-foqmgxn-ufeg-left perihilar ill-defined airspace opacities and may represent marked pulmonary edema, possible congestive heart failure, clinically correlate. Cardiac silhouette is again noted to be enlarged which may represent cardiomegaly and/or a pericardial effusion not excluded. Possible trace left pleural fluid. Reading Location: [id number] Charges/Coding Visit Charges Inpatient E&M: 47120 Init Hosp L3
--- NOTE | 2024-12-12 14:13 | DCINST_ITS ---
Discharge Instructions Diet Discharge Diet: No restrictions (as you feel able. No excessive stretching. No lifting your arm over your head (keep elbow below shoulder level) until seen for your pacemaker check. Do not lift your elbow away from your side until you are seen for your first visit. Keep the arm sling on if it helps remind you not to lift your arm.) DC O2, CPAP, BIPAP needs Home O2 Discharge instructions: Yes Type of respiratory needs?: Oxygen Oxygen frequency: Continuous Continuous oxygen liters per minute: 3l/min Dressing / Incision Discharge Activity: May Not Drive May shower in (days): 2 Additional Activity Instructions:: May shower or bathe on [day 3]. Do not scrub the incision or soak in the tub. Just wash with soap and let the water run over the incision. Gently pat dry with towel. Medications: Take your pain medication as directed. Refer to your discharge instruction sheet for a list of medications you are to take. Dressing / Incision Call your doctor if your incision/area has: Continuous Slow Oozing, Sudden Increased Bleeding, Increased Pain/ Swelling, Increased Redness, Foul Smelling D ischarge and Swelling at the incision site Call your doctor if you observe: Fever of 101 or Higher, Shortness of breath, Dizziness, Fainting spells, Swelling in the ankles, Chest pain, Prolonged hiccupping and Increased palpitations (irregular heartbeat) Suture Line Care: Avoid Pulling/Pushing and Avoid Pinching/Bending Cleanse incision/area with: Do not get Incision Wet and Keep Dressing Clean & Dry Additional Dressing/Incision Instructions:: When dressing is removed, wash and dry incision. Keep covered with a light bandage if it is rubbing against your clothing. Do not cover the incision with an airtight bandage. Change the bandage daily. Do not remove steri strips. The strips will fall off on their own. Follow Up Care Please Follow Up With: Tremaine Molina MD When: Pacer follow-up on December 19 at 2 PM Test Results: Test results from this visit will be discussed in further detail at your follow- up appointment, if applicable. Discharge Plan Admission Admit Date/Time: 12/04/24 09:32 Attending Provider: Adela Farley Primary Care Provider: César Chinchilla Consulting Providers: Tremaine Molina; Dacia Gudino; Emy Willard; Socrates Smith; Ras Richard; Gurjit Mcpherson; Dinesh Peters; Melvin Murphy; Toby Butler; Carlos Gramajo; Gianna Del Rosario; Prabhu Arizmendi; Xander Martinez; John Greer; Radha Santos; Greg Caal; Maria M Dukes; Devaughn Ordonez; Chris Buckley; Jim Hatfield; Prem Milian; Ana Maria Velasquez; Mega Pimentel; Thanh Tabares; Hamilton Palencia; Gui Chinchilla Discharge Orders/Prescriptions Prescriptions: No Action tamsulosin 0.4 mg capsule 0.4 mg PO BID ascorbic acid (vitamin C) 500 mg tablet 500 mg PO BID finasteride 5 mg tablet 5 mg PO DAILY trazodone 50 mg tablet 25 mg PO QHS magnesium chloride [Mag 64] 64 mg tablet,delayed release (DR/EC) 64 mg PO BID isosorbide mononitrate 30 mg tablet extended release 24 hr 30 mg PO DAILY pantoprazole 20 mg tablet,delayed release (DR/EC) 20 mg PO DAILY furosemide 20 mg tablet 20 mg PO BID potassium chloride 20 mEq tablet,ER particles/crystals 20 meq PO BID nitroglycerin 0.4 mg tablet, sublingual 0.4 mg sublingual Q5M PRN (Reason: Cardiac/Chest Pain) Qty: 25 3RF vitamin B complex Capsule 1 cap PO BID cholecalciferol (vitamin D3) [Vitamin D3] 25 mcg (1,000 unit) Capsule 1,000 unit PO QHS Jardiance 10 mg Tablet 10 mg PO DAILY Qty: 0 0RF hydromorphone 2 mg tablet 1 - 2 mg PO QHS famotidine 20 mg tablet 20 mg PO BID loratadine [Allerclear] 10 mg tablet 10 mg PO DAILY albuterol sulfate 2.5 mg/0.5 mL solution for nebulization 2.5 mg inhalation Q6H PRN (Reason: pain) hydralazine 50 mg tablet 50 mg PO 4X/DAY Rx Instructions: SKIP IF BLOOD PRESSURE IS LESS THAN 110 ON TOP OR 60 ON BOTTOM clonidine HCl 0.1 mg tablet 0.05 - 0.1 mg PO DAILY PRN (Reason: BP) zoledronic qwkt-pyedzxzn-srhbg [Reclast] 5 mg/100 mL piggyback 1 ea IV .COMPLEX Rx Instructions: 1 ea intravenously EVERY YEAR; calcium citrate 200 mg (950 mg) tablet 200 mg PO BID ondansetron 4 mg tablet,disintegrating 4 mg PO Q4H PRN (Reason: nausea) Rx Instructions: give 1st dose 30min before emetogenic chemo calcium carbonate [Antacid (calcium carbonate)] 200 mg calcium (500 mg) tablet,chewable 400 mg PO Q6H simethicone [Gas Relief (simethicone)] 125 mg capsule 125 mg PO TIDCM acetaminophen [Acetaminophen Extra Strength] 500 mg tablet 500 mg PO TID PRN (Reason: pain) baclofen 10 mg tablet 5 mg PO TID PRN (Reason: muscle pain) meclizine 12.5 mg tablet 12.5 mg PO Q8H PRN (Reason: dizziness) lidocaine [DermacinRx Lidocan] 5 % adhesive patch,medicated 1 patch topical Q24H Rx Instructions: leave on most painful area for up to 12 hrs ferrous sulfate [Feosol] 325 mg (65 mg iron) tablet 325 mg PO QHS levothyroxine 50 mcg Tablet 50 mcg PO DAILY Eliquis 2.5 mg tablet 2.5 mg PO BID Qty: 60 2RF diltiazem HCl 120 mg Capsule,Extended Release 24hr 120 mg PO DAILY 30 Days Qty: 30 0RF amiodarone 100 mg tablet 100 mg PO BID Qty: 180 3RF Referrals / Follow Up: César Chinchilla MD [Primary Care Provider] -
[2024-12-12 14:39] LABS: Pro- Brain NATRIURETIC PEPTIDE 37606 pg/mL (<=1800); Procalcitonin 0.27 ng/mL (<=0.10)
--- NOTE | 2024-12-12 15:59 | CASEMGMT ---
Karrie from [facility] states that they will likely be able to accept the pt with a SOC date TBD contingent on the pts DC date. CM to follow.
[2024-12-12] MEDS: Pantoprazole Sodium 40 MG in 0.9% Normal Saline (100mL MB+) 100 ML 350 MG IV (20:44)
[2024-12-12] MEDS: Ranolazine 500 MG Tablet PO (20:45)
[2024-12-12] MEDS: MENTHOL 226.8 GM JAR 1 APPLIC TOPICAL (20:51)
[2024-12-12] MEDS: Ferrous Sulfate 325 MG Tablet PO (20:52)
[2024-12-12] MEDS: Tamsulosin HCl 0.4 MG Capsule PO (20:53)
[2024-12-12] MEDS: traZODone 50 MG Tablet 25 MG PO (20:53)
[2024-12-12] MEDS: Atorvastatin Calcium 40 MG Tablet PO (20:53)
[2024-12-12] MEDS: Senna/Docusate Sodium 1 Tablet 2 TABLET PO (21:03)
[2024-12-12] MEDS: 0.9% Normal Saline (1000mL) 1,000 ML 15 ML IV (21:25)
[2024-12-13] VITALS (23 sets, daily range): BP systolic 90–131; BP diastolic 56–79; PULSE 60–80; RESP 12–28; TEMP 36.1–37; O2SAT 91–98; BMI 20.7
[2024-12-13] MEDS: Isosorbide DN 30 MG Tablet PO (05:43)
[2024-12-13] MEDS: Levothyroxine 50 MCG Tablet PO (05:43)
--- NOTE | 2024-12-13 07:33 | PCM.PN.INT ---
Assessment & Plan Assessment/Plan (1) Acute respiratory failure: PLAN: Plan RECOMMENDATIONS: 1. Ongoing diuresis as tolerated by hemodynamics and renal function. 2. Recommend holding Imdur for now while attempting further volume optimization with IV Lasix. 3. Continue empiric antibiotics to cover for aspiration. 4. Dietary advancement per speech therapy recommendations. 5. Encourage incentive spirometer use and mobilize patient as tolerated. 6. Continue BiPAP therapy with naps and nightly. IMPRESSIONS: 1. Acute hypoxemic respiratory failure Most likely secondary to acute decompensated heart failure. However, given the recent concerns for aspiration, it is reasonable to continue Unasyn empirically. BNP remains significantly elevated and the patient remains overall net positive from a volume perspective for the hospitalization. I also suspect that the patient has a component of basilar atelectasis, which would likely improve with aggressive incentive spirometry. Given his history of obstructive sleep apnea, the patient was started on empiric BiPAP therapy with naps and nightly. Recommend continuing supplemental oxygen to maintain saturations at or above 90%. The patient's oxygen status is overall improving. I would strongly recommend more aggressive attempts at volume optimization with IV Lasix, per hospitalist and cardiology. In the interim, I would hold his Imdur. 2. 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 3. History of chronic kidney disease/recent GI bleed/hypertension/atrial fibrillation/coronary artery disease/hypothyroidism Complicates care, management, recovery and prognosis. Continue home medications as indicated. Dietary advancement per speech therapy recommendations. This note was generated with [employer] dictation software. It may contain incorrect words, spelling, and punctuation that were not noted in checking the note before signing. Subjective Subjective The patient was seen and examined at the bedside this morning. Events from the last 24 hours have been reviewed. The patient is currently afebrile, hemodynamically stable and maintaining appropriate oxygen saturations on 6 L/min via nasal cannula with oxygen saturations of 98 to 99%. The patient tolerated BiPAP overnight. He is documented to be overall net +8.2 L for the hospitalization. Repeat BMP completed yesterday was significantly elevated at 37,606. The patient remains on scheduled diuretics. Morning labs are pending. Objective Data Objective Data The patient's most recent lab work, culture data and imaging studies have all been personally reviewed. Vital Signs: Vital Signs Temp Pulse Resp BP Pulse Ox O2 Del Method O2 Flow Rate 97.7 F L 80 24 H 98/58 L 92 Bi-pap 8 12/13/24 03:00 12/13/24 06:00 12/13/24 06:00 12/13/24 06:00 12/13/24 06:00 12/13/24 06:00 12/12/24 20:00 FiO2 35 12/13/24 06:00 Oxygen Flow Rate (L/min) 8 Oxygen Delivery Method Bi-pap Weight: 136 lb 3.931 oz Body Mass Index (BMI) 20.7 Intake & Output: Intake and Output for Last 24 Hours 12/11/24 12/12/24 12/13/24 23:59 23:59 23:59 Intake Total 2317.71 / 2317.71 1091.7 / 1591.7 500 / 500 Output Total 1160 / 1160 500 / 700 600 / 600 Balance 1157.71 / 1157.71 591.7 / 891.7 -100 / -100 Lab / Micro Data Attestation: I reviewed the patient's lab results. 12/12/24 11:45 12/12/24 03:45 Labs: Laboratory Results - last 24 hr 12/12/24 03:45: [place] [address] H, Procalcitonin 0.27 H 12/12/24 11:45: Hgb 8.2 L, Hct 24.6 L Rhythm Strip Rhythm Strip: paced rhythm Rate: 60 Ectopy: PVC(s) Physical Exam Const alert, oriented x3 and no apparent distress General Appearance: cooperative HEENT normocephalic, head/scalp atraumatic and moist oral mucous membranes Eyes PERRL, EOMs intact bilaterally and conjunctivae normal Neck supple General: trachea midline Chest inspection of chest normal Resp normal respiratory effort Auscultation: rales and diminished lung sounds; Negative for rhonchi or wheezes Cardio regular rate and regular rhythm Heart Sounds: murmur GI normal to inspection, nondistended, normoactive bowel sounds Extremity no clubbing, cyanosis or edema Skin no rashes or lesions noted Neuro CN's II-XII intact bilaterally, moves all extremities and no focal motor deficits Psych cooperative and affect normal Charges/Coding Visit Charges Inpatient E&M: 88654 Subs Hosp L2
[2024-12-13 09:43] LABS: Absolute Lymphocyte Count 0.37 X10^3/uL (0.83-4.51); Absolute Neutrophil Count 10.5 X10^3/uL (2.0-7.7); Basophil# 0.03 X10^3/uL; Basophil% 0.3 % (0-1); Eosinophil# 0.12 X10^3/uL; Hematocrit 21.9 % (40-54); Hemoglobin 7.3 g/dL (13.0-16.5); Lymphocyte # 0.37 X10^3/ul (0.83-4.51); Lymphocyte % 3.2 % (19-41); Mean Corp Hgb Conc 33.3 g/dL (32-36); Mean Corpuscular Hgb 38.4 pg (27.0-32.0); Mean Corpuscular Volume 115.3 fL (80-94); Mean Platelet Vol. 10.3 fl (6.2-12.0); Monocyte# 0.62 X10^3/uL; Monocyte% 5.3 % (0-10); NRBC Flagged by Analyzer 0 % (0-5); Neutrophil # 10.45 X10^3/uL (2.7-7.7); Neutrophil % 89.3 % (47-70); POSITIVE DIFFERENTIAL YES; POSITIVE MORPHOLOGY YES; Platelet Count 235 K/mm3 (150-450); RBC Distribution Width CV 15.5 % (11.6-14.6); RBC Distribution Width SD 65.2 fl (35.1-43.9); White Blood Count 11.7 K/mm3 (4.4-11.0)
[2024-12-13 09:47] LABS: Differential Indicated SCAN CRITERIA MET
--- NOTE | 2024-12-13 09:54 | PN_ITS ---
Subjective Subjective Patient seen and examined. He had no active complaint today. He was on BiPAP during the night but was on oxygen by nasal cannula this morning. He was seen by speech therapy and cleared. However per his note he did desaturate while was eating today. Patient does feel he is improving. Review of systems otherwise negative. Objective Data Objective Data Vital Signs: Vital Signs Temp Pulse Resp BP Pulse Ox O2 Del Method O2 Flow Rate 97.7 F L 80 24 H 98/58 L 92 Bi-pap 8 12/13/24 03:00 12/13/24 06:00 12/13/24 06:00 12/13/24 06:00 12/13/24 06:00 12/13/24 06:00 12/12/24 20:00 FiO2 35 12/13/24 06:00 Oxygen Flow Rate (L/min) 8 Oxygen Delivery Method Bi-pap Weight: 136 lb 3.931 oz Body Mass Index (BMI) 20.7 Intake & Output: Intake and Output for Last 24 Hours 12/11/24 12/12/24 12/13/24 23:59 23:59 23:59 Intake Total 2317.71 / 2317.71 1091.7 / 1591.7 500 / 500 Output Total 1160 / 1160 500 / 700 600 / 600 Balance 1157.71 / 1157.71 591.7 / 891.7 -100 / -100 Lab / Micro Data 12/13/24 09:20 12/12/24 03:45 Labs: Laboratory Results - last 24 hr 12/12/24 03:45: [place] [address] H, Procalcitonin 0.27 H 12/12/24 11:45: Hgb 8.2 L, Hct 24.6 L 12/13/24 09:20: WBC 11.7 H, RBC 1.90 L, Hgb 7.3 L, Hct 21.9 L, MCV 115.3 H, MCH 38.4 H, MCHC 33.3, RDW Std Deviation 65.2 H, RDW Coeff of Pablo 15.5 H, Plt Count 235, MPV 10.3, Immature Gran % (Auto) 0.900, Neut % (Auto) 89.3 H, Lymph % (Auto) 3.2 L, [place] % (Auto) 5.3, Eos % (Auto) 1.0, Baso % (Auto) 0.3, Absolute Neuts (auto) 10.5 H, Absolute Lymphs (auto) 0.37 L, Nucleated RBC % 0 Rhythm Strip Rhythm Strip: paced rhythm Rate: 60 Ectopy: PVC(s) Physical Exam Const alert, oriented x3 and no apparent distress Constitutional Narrative: frail, weak General Appearance: cooperative HEENT normocephalic and head/scalp atraumatic Eyes PERRL and EOMs intact bilaterally Neck no lymphadenopathy and supple Lymph Lymphatic: no lymphadenopathy noted and no lymphedema noted Resp Resp Narrative: mildly diminished breath sounds bibasally, no wheezes or crackles. On oxygen by nasal canula Cardio S1 normal heart sound, S2 normal heart sound and no murmurs Cardio Narrative: bradycardic GI normal to inspection, nondistended, normoactive bowel sounds, soft to palpation, non-tender and non-distended Extremity normal capillary refill, no clubbing, cyanosis or edema and no calf tenderness General Extremity: no tenderness to palpation of joints or extremities Skin General Skin Exam: no breakdown Neuro CN's II-XII intact bilaterally and no focal motor deficits Motor Exam: strength 5/5 throughout and general weakness Psych thought process normal and cooperative Psych Narrative: frail and weak Appearance: appropriate Assessment & Plan Assessment/Plan (1) Elevated troponin: (2) Bright red blood per rectum: (3) Bradycardia: PLAN: Plan #Nonstemi * had chest pain over the weekend, and troponin was 1700. * He had cardiac cath yesterday which showed EF of 60% and normal left ventricular wall motion and systolic function with previously placed stent in the mid LAD with 40 to 50% stenosis in second diagonal vessel with 90% proximal stenosis and a small vessel with mild diffuse distal disease present. Circumflex artery showed mild luminal irregularities less than 30% and RCA showed large dominant vessel with mild proximal disease and mild to moderate distal segment disease. * He had pacemaker insertion on 12/11/2024 * cardiology on board * 2D echo showed EF of 60% with severely enlarged left atrium and moderately severe 3+ tricuspid valve insufficiency and severe pulmonary hypertension * #Acute exacerbation of HFpEF * 2D echo as above * [place] [address]. * on IV lasix. being weaned down on oxygen. * Chest x-ray done this morning showed interval development of a severe asymmetric right greater than left perihilar ill-defined airspace opacities which may represent marked pulmonary edema. * patient was evaluated by speech therapy who cleared him for a diet. * wbc today is 11.7 * #Dysphagia with likely aspiration * As above * * #Acute on chronic hypoxic respiratory failure * Due to heart failure and probable aspiration pneumonia. * titrate oxygen to maintain sats more than 90%. * pulmonology on board. Being weaned down on oxygen. * #Bradycardia: * s/p pacemaker insertion. Stable. * #Hypokalemia: Resolved. #CKD IV * Cr at baseline. Will monitor. Cr today is 2.41. * #Rectal bleeding * complained of bright red bleeding per rectum. 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 Colonoscopy showed only stool on cilon with some areas that looked like bleeding sgigmata. * GI was ok with going back on his eliquis, though this is also on hold now as he is on heparin drip. * Now off heparin drip. He however had a pacemaker inserted so we will get the clearance from cardiology about when it is okay to resume Eliquis. * #Acute on chronic anemia: * Hemoglobin today 7.3. Was 7.1 yesterday. Will hold Lovenox. * Repeat H&H. Transfuse to keep hemoglobin more than 7. * He does have a history of rectal bleeding but denies any such bleeding overnight. * repeat H&H #Hypertension * Now off nitro drip. * usually on hydralazine and cardizem at home but these are still on hold. * #Atrial fibrillation with low ventricular rate * amiodarone and eliquis on hold. * on cardizem. * #CAD s/p stents * s/p cardiac cath as above * on high intensity statin. Per cardiology to continue Imdur and ranolazine. * #BPH: on flomax and finasteride #Hypothyroidism: on synthroid #ALVARADO; on CPAP qhs. DVT prophylaxis: * SCDs Charges/Coding Visit Charges Inpatient E&M: 56824 Subs Hosp L3
[2024-12-13 10:09] LABS: Anion Gap 11 (5-15); BUN 42 mg/dL (4-19); Calcium,Total 7.6 mg/dL (7.6-11.0); Carbon Dioxide 22.8 mmol/L (21.0-32.0); Chloride 104 mmol/L (98-108); EST Glomerular Filtration Rate 24 (>60); Estimated Creatinine Clearance 18.82 ml/min (50-250); Glucose 108 mg/dL (70-99); Potassium 3.5 mmol/L (3.3-5.1); Sodium Level 138 mmol/L (133-145)
[2024-12-13] MEDS: Folic Acid 1 MG in 0.9% Normal Saline (50mL Bag) 50 ML 200 MG IV (10:25)
[2024-12-13] MEDS: Furosemide 40 MG/4 ML Vial IV (10:29)
[2024-12-13] MEDS: Tamsulosin HCl 0.4 MG Capsule PO ×2 (10:29→21:31)
[2024-12-13] MEDS: Ranolazine 500 MG Tablet PO ×2 (10:29→21:31)
[2024-12-13] MEDS: Finasteride 5 MG Tablet PO (10:29)
[2024-12-13 10:31] LABS: Anisocytosis 1+
[2024-12-13] MEDS: Senna/Docusate Sodium 1 Tablet 2 TABLET PO ×2 (10:31→21:35)
--- NOTE | 2024-12-13 10:40 | PCM.PN.REN ---
Subjective Subjective Patient sitting up in bed. Reports breathing is about the same. Objective Data Objective Data Vital Signs: Vital Signs Temp Pulse Resp BP Pulse Ox O2 Del Method O2 Flow Rate 97.7 F L 67 21 H 109/60 92 Nasal Cannula 10 12/13/24 03:00 12/13/24 09:00 12/13/24 09:00 12/13/24 09:00 12/13/24 09:00 12/13/24 09:00 12/13/24 09:00 FiO2 35 12/13/24 06:00 Oxygen Flow Rate (L/min) 10 Oxygen Delivery Method Nasal Cannula Weight: 61.8 kg Body Mass Index (BMI) 20.7 Intake & Output: Intake and Output for Last 24 Hours 12/11/24 12/12/24 12/13/24 23:59 23:59 23:59 Intake Total 2317.71 / 2317.71 1091.7 / 1591.7 696.75 / 696.75 Output Total 1160 / 1160 500 / 700 600 / 600 Balance 1157.71 / 1157.71 591.7 / 891.7 96.75 / 96.75 Lab / Micro Data 12/13/24 09:20 12/13/24 09:20 Labs: Laboratory Results - last 24 hr 12/12/24 03:45: [place] [address] H, Procalcitonin 0.27 H 12/12/24 11:45: Hgb 8.2 L, Hct 24.6 L 12/13/24 09:20: WBC 11.7 H, RBC 1.90 L, Hgb 7.3 L, Hct 21.9 L, MCV 115.3 H, MCH 38.4 H, MCHC 33.3, RDW Std Deviation 65.2 H, RDW Coeff of Pablo 15.5 H, Plt Count 235, MPV 10.3, Immature Gran % (Auto) 0.900, Neut % (Auto) 89.3 H, Lymph % (Auto) 3.2 L, [place] % (Auto) 5.3, Eos % (Auto) 1.0, Baso % (Auto) 0.3, Absolute Neuts (auto) 10.5 H, Absolute Lymphs (auto) 0.37 L, Nucleated RBC % 0, Anisocytosis 1+, Sodium 138, Potassium 3.5, Chloride 104, Carbon Dioxide 22.8, Anion Gap 11, BUN 42 H, Creatinine 2.60 H, Estim Creat Clear Calc 18.82 L, Est GFR (MDRD) Non-Af 24 L, BUN/Creatinine Ratio 16.0, Glucose 108 H, Calcium 7.6 Rhythm Strip Rhythm Strip: paced rhythm Rate: 60 Ectopy: PVC(s) Physical Exam Narrative Alert and oriented x 3, no apparent distress S1, S2, RRR Lung sounds diminished, scattered rales Abdomen soft, nontender No edema bilateral lower legs or feet Assessment & Plan Assessment/Plan (1) CKD (chronic kidney disease) stage 4, GFR 15-29 ml/min: (2) Elevated troponin: (3) Bright red blood per rectum: PLAN: Plan This is a pleasant 84-year-old male with past medical history significant for COPD, A-fib, hypertension, CKD stage IV, BPH, ALVARADO, coronary artery disease, moderate pulmonary hypertension, chronic heart failure with reduced EF (echo 12/10/2024: Severe pulmonary hypertension, moderately severe 3+ tricuspid valve insufficiency, left atrium severely enlarged, EF 60%) who presented to the emergency room on December 04 with complaints of bright red blood per rectum. Patient was also noted to have detectable troponin. Since admission patient has undergone EGD and colonoscopy with findings of some bleeding areas which were treated. Patient also had heart cath yesterday and PPM placed today. Nephrology consulted in view of history of CKD. Currently renal function is stable and near patient's baseline. Serum creatinine was 2.9 on admission, creatinine improved to 2.31 on 12/07 and since then creatinine ranging around 2.4-2.5mg/dL. Baseline creatinine possibly around 2.8 to 3 mg/dL but patient does have fluctuations in serum creatinine from cardiorenal syndrome physiology. - FE versus baseline CKD. Overall renal function stable. Potassium and bicarb normal. Urine output around 600 mL for today, yesterday UOP documented 500ml. Slight fluctuations in creatinine from cardiorenal syndrome and also hemodynamics and is currently ranging around 2.4-2.6. Will continue on Lasix, will increase dose 80 mg IV twice daily. Will also give a dose of metolazone now. Last chest x-ray 12/12 showing pulmonary edema, small left pleural effusion. There was concern for possible aspiration, patient is on empiric antibiotics. Blood pressures slight improvement. 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 Assessment and plan reviewed with Dr. Gudino.
[2024-12-13] MEDS: Ampicillin/Sulbactam 3 GM in 0.9% Normal Saline (100mL MB+) 100 ML IV ×2 (10:44→21:56)
--- NOTE | 2024-12-13 10:53 | CASEMGMT ---
RADHA PORTER NOTE: Therapy evals from yesterday reviewed. Pt ambulated 100 ft w/use of WW and SBA, C recommended. RADHA PORTER to room. Pt sitting up in chair. Introduced self and role. Pt states he has been @ [facility] in the past and wishes to go there @ dc before going home, stating he lives alone and is feeling weak, and stated, I don't think I can make it @ home alone. Pt currently on 6 L/M O2 @ rest and not medically ready for discharge. Pt made aware he is doing so well w/therapy he may not qualify for TCU by the time he is ready for discharge. Discussed that therapy would continue to work w/him and he would not discharge until his O2 requirements were less. He voices understanding. GERMAN/MAGNUS will continue to follow for safe discharge plan. Ana SALCEDON RADHA PORTER
[2024-12-13] MEDS: metOLazone 5 MG Tablet 10 MG PO (12:03)
[2024-12-13] MEDS: Pantoprazole Sodium 40 MG in 0.9% Normal Saline (100mL MB+) 100 ML 330 MG IV ×2 (12:03→21:28)
[2024-12-13] MEDS: Mag Hydrox/Al Hydrox/Simeth 30 ML UDC 15 ML PO (17:22)
[2024-12-13] MEDS: Furosemide 40 MG/4 ML Vial 80 MG IV (17:26)
[2024-12-13] MEDS: Polyethylene Glycol 3350 17 GM PACKET PO (18:15)
[2024-12-13] MEDS: Atorvastatin Calcium 40 MG Tablet PO (21:31)
[2024-12-13] MEDS: traZODone 50 MG Tablet 25 MG PO (21:31)
[2024-12-13] MEDS: Ferrous Sulfate 325 MG Tablet PO (21:31)
[2024-12-14] VITALS (11 sets, daily range): BP systolic 103–153; BP diastolic 50–93; PULSE 58–77; RESP 12–22; TEMP 36.5–37; O2SAT 96–99; BMI 20.9
[2024-12-14 07:25] LABS: Absolute Lymphocyte Count 0.51 X10^3/uL (0.83-4.51); Absolute Neutrophil Count 10.9 X10^3/uL (2.0-7.7); Basophil# 0.03 X10^3/uL; Basophil% 0.2 % (0-1); Eosinophil# 0.17 X10^3/uL; Eosinophils% 1.4 % (0-5); Hemoglobin 7.5 g/dL (13.0-16.5); Lymphocyte # 0.51 X10^3/ul (0.83-4.51); Lymphocyte % 4.1 % (19-41); Mean Corp Hgb Conc 34.1 g/dL (32-36); Mean Corpuscular Hgb 38.1 pg (27.0-32.0); Mean Corpuscular Volume 111.7 fL (80-94); Mean Platelet Vol. 10.4 fl (6.2-12.0); Monocyte# 0.74 X10^3/uL; Monocyte% 5.9 % (0-10); NRBC Flagged by Analyzer 0.2 % (0-5); Neutrophil % 87.1 % (47-70); POSITIVE DIFFERENTIAL YES; Platelet Count 235 K/mm3 (150-450); RBC Distribution Width CV 15.3 % (11.6-14.6); RBC Distribution Width SD 62.5 fl (35.1-43.9); Red Blood Count 1.97 M/mm3 (4.6-6.2); White Blood Count 12.5 K/mm3 (4.4-11.0)
--- NOTE | 2024-12-14 07:31 | PN.CC_ITS ---
Assessment & Plan Assessment/Plan (1) Acute respiratory failure: PLAN: Plan RECOMMENDATIONS: 1. Ongoing diuresis as tolerated by hemodynamics and renal function. 2. Continue empiric antibiotics to cover for aspiration. 3. Encourage incentive spirometer use and mobilize patient as tolerated. 4. Continue BiPAP therapy with naps and nightly. IMPRESSIONS: 1. Acute hypoxemic respiratory failure Most likely secondary to acute decompensated heart failure. However, given the recent concerns for aspiration, it is reasonable to continue Unasyn empirically. BNP remains significantly elevated and the patient remains overall net positive from a volume perspective for the hospitalization. I also suspect that the patient has a component of basilar atelectasis, which would likely improve with aggressive incentive spirometry. Given his history of obstructive sleep apnea, the patient was started on empiric BiPAP therapy with naps and nightly, as this should also help with alveolar recruitment. Recommend continuing supplemental oxygen to maintain saturations at or above 90%. The patient's oxygen status is overall improving. I would strongly recommend more aggressive attempts at volume optimization with IV Lasix, per hospitalist and cardiology. 2. 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 3. History of chronic kidney disease/recent GI bleed/hypertension/atrial fibrillation/coronary artery disease/hypothyroidism Complicates care, management, recovery and prognosis. Continue home medications as indicated. Dietary advancement per speech therapy recommendations. This note was generated with [employer] dictation software. It may contain incorrect words, spelling, and punctuation that were not noted in checking the note before signing. Subjective Subjective The patient was seen and examined at the bedside this morning. Events from the last 24 hours have been reviewed. The patient is currently afebrile, hemodynamically stable and maintaining appropriate oxygen saturations on 6 L/min via nasal cannula. The patient was only partially compliant with BiPAP therapy overnight, according to nursing report. He is currently documented to be overall net +8.3 L for the hospitalization. Objective Data Objective Data The patient's most recent lab work, culture data and imaging studies have all been personally reviewed. Vital Signs: Vital Signs Temp Pulse Resp BP Pulse Ox O2 Del Method O2 Flow Rate 98.6 F 62 21 H 120/72 97 Bi-pap 4 12/14/24 03:30 12/14/24 04:54 12/14/24 04:54 12/14/24 03:30 12/14/24 04:54 12/14/24 03:30 12/13/24 21:30 FiO2 35 12/14/24 04:54 Oxygen Flow Rate (L/min) 4 Oxygen Delivery Method Bi-pap Weight: 137 lb 9.095 oz Body Mass Index (BMI) 20.9 Intake & Output: Intake and Output for Last 24 Hours 12/12/24 12/13/24 12/14/24 23:59 23:59 23:59 Intake Total 1091.7 / 1591.7 1208.45 / 1208.45 Output Total 500 / 700 1200 / 1200 Balance 591.7 / 891.7 8.45 / 8.45 Lab / Micro Data Attestation: I reviewed the patient's lab results. 12/14/24 06:45 12/14/24 06:45 Labs: Laboratory Results - last 24 hr 12/13/24 09:20: WBC 11.7 H, RBC 1.90 L, Hgb 7.3 L, Hct 21.9 L, MCV 115.3 H, MCH 38.4 H, MCHC 33.3, RDW Std Deviation 65.2 H, RDW Coeff of Pablo 15.5 H, Plt Count 235, MPV 10.3, Immature Gran % (Auto) 0.900, Neut % (Auto) 89.3 H, Lymph % (Auto) 3.2 L, [place] % (Auto) 5.3, Eos % (Auto) 1.0, Baso % (Auto) 0.3, Absolute Neuts (auto) 10.5 H, Absolute Lymphs (auto) 0.37 L, Nucleated RBC % 0, Anisocytosis 1+, Sodium 138, Potassium 3.5, Chloride 104, Carbon Dioxide 22.8, Anion Gap 11, BUN 42 H, Creatinine 2.60 H, Estim Creat Clear Calc 18.82 L, Est GFR (MDRD) Non-Af 24 L, BUN/Creatinine Ratio 16.0, Glucose 108 H, Calcium 7.6 12/14/24 06:45: WBC 12.5 H, RBC 1.97 L, Hgb 7.5 L, Hct 22.0 L, MCV 111.7 H, MCH 38.1 H, MCHC 34.1, RDW Std Deviation 62.5 H, RDW Coeff of Pablo 15.3 H, Plt Count 235, MPV 10.4, Immature Gran % (Auto) 1.300 H, Neut % (Auto) 87.1 H, Lymph % (Auto) 4.1 L, [place] % (Auto) 5.9, Eos % (Auto) 1.4, Baso % (Auto) 0.2, Absolute Neuts (auto) 10.9 H, Absolute Lymphs (auto) 0.51 L, Nucleated RBC % 0.2 Rhythm Strip Rhythm Strip: paced rhythm Rate: 60 Ectopy: PVC(s) Physical Exam Const alert, oriented x3 and no apparent distress General Appearance: cooperative HEENT normocephalic, head/scalp atraumatic and moist oral mucous membranes Eyes PERRL, EOMs intact bilaterally and conjunctivae normal Neck supple General: trachea midline Chest inspection of chest normal Resp normal respiratory effort Auscultation: rales and diminished lung sounds; Negative for rhonchi or wheezes Cardio regular rate and regular rhythm Heart Sounds: murmur GI normal to inspection, nondistended, normoactive bowel sounds Extremity no clubbing, cyanosis or edema Skin no rashes or lesions noted Neuro CN's II-XII intact bilaterally, moves all extremities and no focal motor deficits Psych cooperative and affect normal Charges/Coding Visit Charges Inpatient E&M: 27952 Subs Hosp L2
[2024-12-14 08:19] LABS: Anion Gap 12 (5-15); BUN 45 mg/dL (4-19); BUN/Creat Ratio 17.5 RATIO (10-20); Calcium,Total 7.7 mg/dL (7.6-11.0); Carbon Dioxide 23.7 mmol/L (21.0-32.0); Chloride 101 mmol/L (98-108); Creatinine, Serum 2.59 mg/dL (0.70-1.20); EST Glomerular Filtration Rate 24 (>60); Estimated Creatinine Clearance 19.07 ml/min (50-250); Glucose 90 mg/dL (70-99); Potassium 2.9 mmol/L (3.3-5.1); Sodium Level 137 mmol/L (133-145)
--- NOTE | 2024-12-14 08:19 | PN.RENAL_ITS ---
Subjective Subjective Following for FE on CKD. Patient complains of dyspnea and chest tightness. He had nausea earlier today which has resolved. There is no vomiting. Objective Data Objective Data Vital Signs: Vital Signs Temp Pulse Resp BP Pulse Ox O2 Del Method O2 Flow Rate 98.6 F 62 21 H 120/72 97 Bi-pap 4 12/14/24 03:30 12/14/24 04:54 12/14/24 04:54 12/14/24 03:30 12/14/24 04:54 12/14/24 03:30 12/13/24 21:30 FiO2 35 12/14/24 04:54 Oxygen Flow Rate (L/min) 4 Oxygen Delivery Method Bi-pap Weight: 62.4 kg Body Mass Index (BMI) 20.9 Intake & Output: Intake and Output for Last 24 Hours 12/12/24 12/13/24 12/14/24 23:59 23:59 23:59 Intake Total 1091.7 / 1591.7 1208.45 / 1208.45 Output Total 500 / 700 1200 / 1200 Balance 591.7 / 891.7 8.45 / 8.45 Lab / Micro Data 12/14/24 06:45 12/14/24 06:45 Labs: Laboratory Results - last 24 hr 12/13/24 09:20: WBC 11.7 H, RBC 1.90 L, Hgb 7.3 L, Hct 21.9 L, MCV 115.3 H, MCH 38.4 H, MCHC 33.3, RDW Std Deviation 65.2 H, RDW Coeff of Pablo 15.5 H, Plt Count 235, MPV 10.3, Immature Gran % (Auto) 0.900, Neut % (Auto) 89.3 H, Lymph % (Auto) 3.2 L, [place] % (Auto) 5.3, Eos % (Auto) 1.0, Baso % (Auto) 0.3, Absolute Neuts (auto) 10.5 H, Absolute Lymphs (auto) 0.37 L, Nucleated RBC % 0, Anisocytosis 1+, Sodium 138, Potassium 3.5, Chloride 104, Carbon Dioxide 22.8, Anion Gap 11, BUN 42 H, Creatinine 2.60 H, Estim Creat Clear Calc 18.82 L, Est GFR (MDRD) Non-Af 24 L, BUN/Creatinine Ratio 16.0, Glucose 108 H, Calcium 7.6 12/14/24 06:45: WBC 12.5 H, RBC 1.97 L, Hgb 7.5 L, Hct 22.0 L, MCV 111.7 H, MCH 38.1 H, MCHC 34.1, RDW Std Deviation 62.5 H, RDW Coeff of Pablo 15.3 H, Plt Count 235, MPV 10.4, Immature Gran % (Auto) 1.300 H, Neut % (Auto) 87.1 H, Lymph % (Auto) 4.1 L, [place] % (Auto) 5.9, Eos % (Auto) 1.4, Baso % (Auto) 0.2, Absolute Neuts (auto) 10.9 H, Absolute Lymphs (auto) 0.51 L, Nucleated RBC % 0.2, Sodium 137, Potassium 2.9 L, Chloride 101, Carbon Dioxide 23.7, Anion Gap 12, BUN 45 H, Creatinine 2.59 H, Estim Creat Clear Calc 19.07 L, Est GFR (MDRD) Non-Af 24 L, BUN/Creatinine Ratio 17.5, Glucose 90, Calcium 7.7 Rhythm Strip Rhythm Strip: paced rhythm Rate: 60 Ectopy: PVC(s) Physical Exam Narrative Alert and oriented x 3, no apparent distress S1, S2, RRR Lung sounds clear anteriorly Abdomen soft, nontender No edema bilateral lower legs or feet Assessment & Plan Assessment/Plan (1) CKD (chronic kidney disease) stage 4, GFR 15-29 ml/min: (2) Elevated troponin: (3) Bright red blood per rectum: PLAN: Plan Assessment/Plan: The patient is a 84-year-old male with past medical history significant for COPD, A-fib, hypertension, CKD stage G4, BPH, ALVARADO, coronary artery disease, moderate pulmonary hypertension, chronic heart failure with reduced EF (echo 12/10/2024: Severe pulmonary hypertension, moderately severe 3+ tricuspid valve insufficiency, left atrium severely enlarged, EF 60%) who presented to the emergency room on December 04 with complaints of bright red blood per rectum. Patient was also noted to have detectable troponin. Since admission patient has undergone EGD and colonoscopy with findings of some bleeding areas which were treated. Patient also had heart cath yesterday and PPM placed on 12/13/2024. Nephrology is following for CKD. Chronic kidney disease stage G4. Currently renal function is stable and near patient's baseline. Serum creatinine was 2.90 mg/dL on admission. Serum creatinine ranging around 2.40-2.50 mg/dL during this admission. Serum creatinine is stable today at 2.59 mg/dL. Patient appears to be volume up, so we will continue to diurese him with careful monitoring of renal function. Okay to continue current dose of IV furosemide. There is no need for kidney replacement therapy. Continue keep MAP above 65 mmHg. Will monitor renal function, volume status, acid-base and electrolytes while we are trying to diurese the patient.
--- NOTE | 2024-12-14 08:51 | CASEMGMT ---
Social Work SW made referral to TCU, will await response, will continue to follow. JACQUES Pereira
[2024-12-14] MEDS: Ondansetron 4 MG/2 ML Vial IV (09:21)
[2024-12-14] MEDS: Furosemide 40 MG/4 ML Vial 80 MG IV ×2 (09:32→18:34)
[2024-12-14] MEDS: 0.9% Normal Saline (1000mL) 1,000 ML 75 ML IV (09:33)
--- NOTE | 2024-12-14 09:36 | CASEMGMT ---
[facility] reports that TCU is able to accept for admission Tuesday. Karrie @ [facility] notified. CM to continue to follow.
--- NOTE | 2024-12-14 09:52 | CASEMGMT ---
Social Work TCU can accept pt, however pt needs to be on no more than 8L O2 with exertion. Also pt gets a yearly infusion, cannot get this while in TCU. SW spoke w/pt, let him know TCU can take him when he is ready. SW also let pt know he cannot get his once a year infusion(pt states it is for his bones) while he is there. Pt states it is due now, but is fine with waiting until he gets out of TCU. SW inquired if pt would like SW to update his family, he is agreeable to SW calling his [id number]-vyh Neelima who is his main contact. SW called Neelima, let her know that pt will go to TCU when medically ready. Neelima states understanding and is in agreement w/the plan. Green sheet placed on chart in anticipation of weekend discharge, as long as pt's O2 needs are within the above parameters. JACQUES Pereira
[2024-12-14] MEDS: Potassium Chloride 10mEq/100mL 10 MEQ/100 ML IV.SOLN. 100 MEQ IV BOLUS ×4 (10:24→15:04)
[2024-12-14] MEDS: Folic Acid 1 MG in 0.9% Normal Saline (50mL Bag) 50 ML 200 MG IV (11:07)
[2024-12-14] MEDS: Finasteride 5 MG Tablet PO (11:08)
[2024-12-14] MEDS: Ranolazine 500 MG Tablet PO ×2 (11:09→21:44)
[2024-12-14] MEDS: Tamsulosin HCl 0.4 MG Capsule PO ×2 (11:09→21:44)
[2024-12-14] MEDS: Loratadine 10 MG Tablet PO (11:09)
[2024-12-14] MEDS: Senna/Docusate Sodium 1 Tablet 2 TABLET PO ×2 (11:11→21:43)
[2024-12-14 11:22] LABS: Magnesium 2.2 mg/dL (1.5-2.2)
[2024-12-14] MEDS: Pantoprazole Sodium 40 MG in 0.9% Normal Saline (100mL MB+) 100 ML 330 MG IV ×2 (11:55→21:59)
--- NOTE | 2024-12-14 12:46 | PN_ITS ---
Subjective Subjective Patient seen and examined. He complained of dizziness nad lightheadedness as well as nausea this morning. Review of systems is otherwise negative. Orthostatics checked this morning is positive. Objective Data Objective Data Vital Signs: Vital Signs Temp Pulse Resp BP Pulse Ox O2 Del Method O2 Flow Rate 98.6 F 74 21 H 133/74 H 97 Bi-pap 4 12/14/24 03:30 12/14/24 09:02 12/14/24 04:54 12/14/24 09:02 12/14/24 04:54 12/14/24 03:30 12/13/24 21:30 FiO2 35 12/14/24 04:54 Oxygen Flow Rate (L/min) 4 Oxygen Delivery Method Bi-pap Weight: 137 lb 9.095 oz Body Mass Index (BMI) 20.9 Intake & Output: Intake and Output for Last 24 Hours 12/12/24 12/13/24 12/14/24 23:59 23:59 23:59 Intake Total 1091.7 / 1591.7 1208.45 / 1208.45 150.2 / 150.2 Output Total 500 / 700 1200 / 1200 1900 / 1900 Balance 591.7 / 891.7 8.45 / 8.45 -1749.8 / -1749.8 Lab / Micro Data 12/14/24 06:45 12/14/24 06:45 Labs: Laboratory Results - last 24 hr 12/14/24 06:45: WBC 12.5 H, RBC 1.97 L, Hgb 7.5 L, Hct 22.0 L, MCV 111.7 H, MCH 38.1 H, MCHC 34.1, RDW Std Deviation 62.5 H, RDW Coeff of Pablo 15.3 H, Plt Count 235, MPV 10.4, Immature Gran % (Auto) 1.300 H, Neut % (Auto) 87.1 H, Lymph % (Auto) 4.1 L, [place] % (Auto) 5.9, Eos % (Auto) 1.4, Baso % (Auto) 0.2, Absolute Neuts (auto) 10.9 H, Absolute Lymphs (auto) 0.51 L, Nucleated RBC % 0.2, Sodium 137, Potassium 2.9 L, Chloride 101, Carbon Dioxide 23.7, Anion Gap 12, BUN 45 H, Creatinine 2.59 H, Estim Creat Clear Calc 19.07 L, Est GFR (MDRD) Non-Af 24 L, BUN/Creatinine Ratio 17.5, Glucose 90, Calcium 7.7, Magnesium 2.2 Rhythm Strip Rhythm Strip: paced rhythm Rate: 60 Ectopy: PVC(s) Physical Exam Const alert, oriented x3 and no apparent distress Constitutional Narrative: frail, weak General Appearance: cooperative HEENT normocephalic and head/scalp atraumatic Eyes PERRL and EOMs intact bilaterally Neck no lymphadenopathy and supple Lymph Lymphatic: no lymphadenopathy noted and no lymphedema noted Resp Resp Narrative: mildly diminished breath sounds bibasally, no wheezes or crackles. On oxygen by nasal canula: 3-4L this morning Cardio regular rate, regular rhythm, S1 normal heart sound, S2 normal heart sound and no murmurs GI normal to inspection, nondistended, normoactive bowel sounds, soft to palpation, non-tender and non-distended Extremity normal capillary refill, no clubbing, cyanosis or edema and no calf tenderness General Extremity: no tenderness to palpation of joints or extremities Skin General Skin Exam: no breakdown Neuro CN's II-XII intact bilaterally and no focal motor deficits Motor Exam: general weakness Psych thought process normal and cooperative Psych Narrative: frail and weak Appearance: appropriate Assessment & Plan Assessment/Plan (1) Elevated troponin: (2) Bright red blood per rectum: (3) Bradycardia: PLAN: Plan #Nonstemi * He had cardiac cath which showed EF of 60% and normal left ventricular wall motion and systolic function with previously placed stent in the mid LAD with 40 to 50% stenosis in second diagonal vessel with 90% proximal stenosis and a small vessel with mild diffuse distal disease present. Circumflex artery showed mild luminal irregularities less than 30% and RCA showed large dominant vessel with mild proximal disease and mild to moderate distal segment disease. * He had pacemaker insertion on 12/11/2024 * cardiology on board * 2D echo showed EF of 60% with severely enlarged left atrium and moderately severe 3+ tricuspid valve insufficiency and severe pulmonary hypertension * #Acute exacerbation of HFpEF * 2D echo as above * [place] [address]. * on IV lasix. being weaned down on oxygen. * Chest x-ray done this morning showed interval development of a severe asymmetric right greater than left perihilar ill-defined airspace opacities which may represent marked pulmonary edema. * patient was evaluated by speech therapy who cleared him for a diet. * wbc today is 12.5 * #ORthostatic hypotension * complained of dizziness today. ORthostatics were positive. * will hydrate gently with IVF NS @ 75cc/hr x 1 bag. Lasix dose per nephrology. * #Dysphagia with likely aspiration * As above * #Acute on chronic hypoxic respiratory failure * Due to heart failure and probable aspiration pneumonia. * titrate oxygen to maintain sats more than 90%. * pulmonology on board. Being weaned down on oxygen. * #Bradycardia: * s/p pacemaker insertion. Stable. * #Hypokalemia: Potassium is 2.9 today. Will replace aggressively and trend potassium. Magnesium was 2.2 today. #CKD IV * Cr at baseline. Will monitor. Cr today is 2.59. * #Rectal bleeding * complained of bright red bleeding per rectum. 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 Colonoscopy showed only stool on cilon with some areas that looked like bleeding sgigmata. * GI was ok with going back on his eliquis, though this is also on hold now as he is on heparin drip. * Now off heparin drip. He however had a pacemaker inserted so we will get the clearance from cardiology about when it is okay to resume Eliquis. * #Acute on chronic anemia: * Hemoglobin today is 7.5. Was 7.3 yesterday * He does have a history of rectal bleeding but denies any such bleeding overnight. * monitor HH. #Hypertension * Now off nitro drip. * usually on hydralazine and cardizem at home but these are still on hold. * will resume today as BP is elevated. * #Atrial fibrillation with low ventricular rate * amiodarone and eliquis on hold. * on cardizem. * #CAD s/p stents * s/p cardiac cath as above * on high intensity statin. Per cardiology to continue Imdur and ranolazine. * #BPH: on flomax and finasteride #Hypothyroidism: on synthroid #ALVARADO; on CPAP qhs. DVT prophylaxis: * SCDs Charges/Coding Visit Charges Inpatient E&M: 93378 Subs Hosp L3
[2024-12-14] MEDS: Ampicillin/Sulbactam 3 GM in 0.9% Normal Saline (100mL MB+) 100 ML IV ×2 (14:02→22:03)
[2024-12-14] MEDS: 0.9% Saline Lock 10 ML Syringe IV ×2 (18:34→21:59)
[2024-12-14] MEDS: traZODone 50 MG Tablet 25 MG PO (21:44)
[2024-12-14] MEDS: Ferrous Sulfate 325 MG Tablet PO (21:44)
[2024-12-14] MEDS: Atorvastatin Calcium 40 MG Tablet PO (21:44)
[2024-12-14] MEDS: Acetaminophen 325 MG Tablet PO (21:44)
[2024-12-15] VITALS (9 sets, daily range): BP systolic 108–124; BP diastolic 60–88; PULSE 58–68; RESP 12–26; TEMP 36.6–36.8; O2SAT 97–99; BMI 20.9
[2024-12-15 05:59] LABS: Absolute Lymphocyte Count 0.66 X10^3/uL (0.83-4.51); Absolute Neutrophil Count 7.9 X10^3/uL (2.0-7.7); Basophil# 0.04 X10^3/uL; Basophil% 0.4 % (0-1); Eosinophil# 0.29 X10^3/uL; Hematocrit 22.4 % (40-54); Hemoglobin 7.6 g/dL (13.0-16.5); Lymphocyte # 0.66 X10^3/ul (0.83-4.51); Lymphocyte % 6.8 % (19-41); Mean Corp Hgb Conc 33.9 g/dL (32-36); Mean Corpuscular Hgb 38.4 pg (27.0-32.0); Mean Corpuscular Volume 113.1 fL (80-94); Mean Platelet Vol. 10.2 fl (6.2-12.0); Monocyte% 7.2 % (0-10); NRBC Flagged by Analyzer 0 % (0-5); Neutrophil # 7.94 X10^3/uL (2.7-7.7); Neutrophil % 81.2 % (47-70); Platelet Count 241 K/mm3 (150-450); RBC Distribution Width CV 14.9 % (11.6-14.6); RBC Distribution Width SD 61.4 fl (35.1-43.9); Red Blood Count 1.98 M/mm3 (4.6-6.2); White Blood Count 9.8 K/mm3 (4.4-11.0)
[2024-12-15] MEDS: Levothyroxine 50 MCG Tablet PO (06:07)
[2024-12-15 06:31] LABS: Anion Gap 11 (5-15); BUN 47 mg/dL (4-19); BUN/Creat Ratio 17.8 RATIO (10-20); Calcium,Total 7.8 mg/dL (7.6-11.0); Carbon Dioxide 27.9 mmol/L (21.0-32.0); Chloride 100 mmol/L (98-108); Creatinine, Serum 2.61 mg/dL (0.70-1.20); EST Glomerular Filtration Rate 24 (>60); Estimated Creatinine Clearance 18.96 ml/min (50-250); Glucose 87 mg/dL (70-99); Potassium 2.8 mmol/L (3.3-5.1); Sodium Level 139 mmol/L (133-145)
[2024-12-15] MEDS: Finasteride 5 MG Tablet PO (10:32)
[2024-12-15] MEDS: Furosemide 40 MG/4 ML Vial 80 MG IV ×2 (10:32→18:18)
[2024-12-15] MEDS: Ranolazine 500 MG Tablet PO ×2 (10:32→22:05)
[2024-12-15] MEDS: Tamsulosin HCl 0.4 MG Capsule PO ×2 (10:32→22:05)
[2024-12-15] MEDS: Folic Acid 1 MG in 0.9% Normal Saline (50mL Bag) 50 ML 200 MG IV (10:33)
[2024-12-15] MEDS: Potassium Chloride 10mEq/100mL 10 MEQ/100 ML IV.SOLN. 100 MEQ IV BOLUS ×3 (10:33→13:45)
[2024-12-15] MEDS: Potassium Chloride Oral Tablet 20 MEQ 40 MEQ PO ×2 (10:56→18:18)
[2024-12-15] MEDS: Pantoprazole Sodium 40 MG in 0.9% Normal Saline (100mL MB+) 100 ML 330 MG IV ×2 (10:57→22:13)
[2024-12-15] MEDS: Senna/Docusate Sodium 1 Tablet 2 TABLET PO ×2 (10:57→22:10)
[2024-12-15] MEDS: Ampicillin/Sulbactam 3 GM in 0.9% Normal Saline (100mL MB+) 100 ML IV ×2 (10:58→22:13)
--- NOTE | 2024-12-15 11:27 | PN_ITS ---
Subjective Subjective Patient seen and examined. He states he is feeling much better today. He has no active complaints. He feels his breathing is improving. He was down to 4 L of oxygen this morning but with slight exertion he gets very short of breath and had to be bumped up to 10 L. Review of systems otherwise negative. Objective Data Objective Data Vital Signs: Vital Signs Temp Pulse Resp BP Pulse Ox O2 Del Method O2 Flow Rate 97.9 F 58 L 26 H 123/72 H 97 Nasal Cannula 10 12/15/24 04:15 12/15/24 04:50 12/15/24 04:50 12/15/24 04:15 12/15/24 07:27 12/15/24 07:27 12/15/24 07:27 FiO2 35 12/15/24 04:50 Oxygen Flow Rate (L/min) 10 Oxygen Delivery Method Nasal Cannula Weight: 137 lb 12.623 oz Body Mass Index (BMI) 20.9 Intake & Output: Intake and Output for Last 24 Hours 12/13/24 12/14/24 12/15/24 23:59 23:59 23:59 Intake Total 1208.45 / 1208.45 2094.70 / 2094.70 0 / 0 Output Total 1200 / 1200 2900 / 2900 900 / 900 Balance 8.45 / 8.45 -805.30 / -805.30 -900 / -900 Lab / Micro Data 12/15/24 05:10 12/15/24 05:10 Labs: Laboratory Results - last 24 hr 12/15/24 05:10: WBC 9.8, RBC 1.98 L, Hgb 7.6 L, Hct 22.4 L, MCV 113.1 H, MCH 38.4 H, MCHC 33.9, RDW Std Deviation 61.4 H, RDW Coeff of Pablo 14.9 H, Plt Count 241, MPV 10.2, Immature Gran % (Auto) 1.400 H, Neut % (Auto) 81.2 H, Lymph % (Auto) 6.8 L, [place] % (Auto) 7.2, Eos % (Auto) 3.0, Baso % (Auto) 0.4, Absolute Neuts (auto) 7.9 H, Absolute Lymphs (auto) 0.66 L, Nucleated RBC % 0, Sodium 139, Potassium 2.8 L, Chloride 100, Carbon Dioxide 27.9, Anion Gap 11, BUN 47 H, Creatinine 2.61 H, Estim Creat Clear Calc 18.96 L, Est GFR (MDRD) Non-Af 24 L, BUN/Creatinine Ratio 17.8, Glucose 87, Calcium 7.8 Rhythm Strip Rhythm Strip: paced rhythm Rate: 60 Ectopy: PVC(s) Physical Exam Const alert, oriented x3 and no apparent distress Constitutional Narrative: frail, weak General Appearance: cooperative HEENT normocephalic, head/scalp atraumatic and moist oral mucous membranes Eyes PERRL and EOMs intact bilaterally Neck no lymphadenopathy and supple Lymph Lymphatic: no lymphadenopathy noted and no lymphedema noted Resp Resp Narrative: mildly diminished breath sounds bibasally, no wheezes or crackles. On oxygen by nasal canula: was on 4L this morning but subsequently bumped up to 10L. Cardio regular rate, regular rhythm, S1 normal heart sound, S2 normal heart sound and no murmurs Cardio Narrative: bradycardic GI normal to inspection, nondistended, normoactive bowel sounds, soft to palpation, non-tender and non-distended Extremity normal capillary refill, no clubbing, cyanosis or edema and no calf tenderness General Extremity: no tenderness to palpation of joints or extremities Skin General Skin Exam: no breakdown Neuro CN's II-XII intact bilaterally and no focal motor deficits Motor Exam: strength 5/5 throughout and general weakness Psych thought process normal and cooperative Psych Narrative: frail and weak Appearance: appropriate Assessment & Plan Assessment/Plan (1) Elevated troponin: (2) Bright red blood per rectum: (3) Bradycardia: PLAN: Plan #Nonstemi * He had cardiac cath which showed EF of 60% and normal left ventricular wall motion and systolic function with previously placed stent in the mid LAD with 40 to 50% stenosis in second diagonal vessel with 90% proximal stenosis and a small vessel with mild diffuse distal disease present. Circumflex artery showed mild luminal irregularities less than 30% and RCA showed large dominant vessel with mild proximal disease and mild to moderate distal segment disease. * He had pacemaker insertion on 12/11/2024 * cardiology on board * 2D echo showed EF of 60% with severely enlarged left atrium and moderately severe 3+ tricuspid valve insufficiency and severe pulmonary hypertension * #Acute exacerbation of HFpEF * 2D echo as above * [place] [address]. * on IV lasix. being weaned down on oxygen. * Chest x-ray done this morning showed interval development of a severe asymmetric right greater than left perihilar ill-defined airspace opacities which may represent marked pulmonary edema. * patient was evaluated by speech therapy who cleared him for a diet. * wbc today is down to 9.8. * #Orthostatic hypotension * resolved. Dizziness has resolved and he feels much better. * #Dysphagia with likely aspiration * As above * #Acute on chronic hypoxic respiratory failure * Due to heart failure and probable aspiration pneumonia. * titrate oxygen to maintain sats more than 90%. * pulmonology on board. Being weaned down on oxygen. * patient desaturates very easily with the slightest exertion. He was requiring up to 10L with exertion, though at rest he requires only 3-4L of oxygen. * pulmonology on board. * continue diuresis with lasix IV 80mg bid per nephrology * #Bradycardia: * s/p pacemaker insertion. Stable. * #Hypokalemia: Potassium is 2.8 today. Will replace aggressively and trend potassium. this is likely due to the diuresis with iV lasix #CKD IV * Cr has trended up slightly to 2.61. * #Rectal bleeding * complained of bright red bleeding per rectum. 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 Colonoscopy showed only stool on cilon with some areas that looked like bleeding sgigmata. * GI was ok with going back on his eliquis, though this is also on hold now as he is on heparin drip. * Now off heparin drip. He however had a pacemaker inserted so we will get the clearance from cardiology about when it is okay to resume Eliquis. * #Acute on chronic anemia: * Hemoglobin today is 7.6. * He does have a history of rectal bleeding but denies any such bleeding overnight. * monitor HH. #Hypertension * Now off nitro drip. * usually on hydralazine and cardizem at home but these are still on hold. * will resume today as BP is elevated. * #Atrial fibrillation with low ventricular rate * amiodarone and eliquis on hold. * on cardizem. * #CAD s/p stents * s/p cardiac cath as above * on high intensity statin. Per cardiology to continue Imdur and ranolazine. * #BPH: on flomax and finasteride #Hypothyroidism: on synthroid #ALVARADO; on CPAP qhs. DVT prophylaxis: * SCDs * Disposition: awaiting placement in SNF Charges/Coding Visit Charges Inpatient E&M: 73253 Subs Hosp L2
--- NOTE | 2024-12-15 20:48 | NURSING ---
1 bag potassium chloride not scanned in. per previous nurse and patient, 4 bags given
[2024-12-15] MEDS: Atorvastatin Calcium 40 MG Tablet PO (22:05)
[2024-12-15] MEDS: Ferrous Sulfate 325 MG Tablet PO (22:06)
[2024-12-15] MEDS: traZODone 50 MG Tablet 25 MG PO (22:06)
[2024-12-15] MEDS: 0.9% Saline Lock 10 ML Syringe IV (22:28)
[2024-12-16] VITALS (7 sets, daily range): BP systolic 97–128; BP diastolic 61–85; PULSE 61–83; RESP 12–20; TEMP 36.2–36.9; O2SAT 92–98; BMI 21.3
[2024-12-16 04:31] LABS: Absolute Lymphocyte Count 0.68 X10^3/uL (0.83-4.51); Absolute Neutrophil Count 11.3 X10^3/uL (2.0-7.7); Basophil# 0.06 X10^3/uL; Basophil% 0.5 % (0-1); Eosinophil# 0.25 X10^3/uL; Eosinophils% 1.9 % (0-5); Hematocrit 23.6 % (40-54); Lymphocyte # 0.68 X10^3/ul (0.83-4.51); Lymphocyte % 5.1 % (19-41); Mean Corp Hgb Conc 33.9 g/dL (32-36); Mean Corpuscular Hgb 38.3 pg (27.0-32.0); Mean Corpuscular Volume 112.9 fL (80-94); Mean Platelet Vol. 9.7 fl (6.2-12.0); Monocyte# 0.77 X10^3/uL; Monocyte% 5.8 % (0-10); NRBC Flagged by Analyzer 0 % (0-5); Neutrophil # 11.28 X10^3/uL (2.7-7.7); Neutrophil % 85.3 % (47-70); Platelet Count 273 K/mm3 (150-450); RBC Distribution Width SD 62.3 fl (35.1-43.9); Red Blood Count 2.09 M/mm3 (4.6-6.2); White Blood Count 13.2 K/mm3 (4.4-11.0)
[2024-12-16] MEDS: Ondansetron 4 MG/2 ML Vial IV (04:53)
[2024-12-16 05:12] LABS: Anion Gap 13 (5-15); BUN 47 mg/dL (4-19); BUN/Creat Ratio 17.6 RATIO (10-20); Carbon Dioxide 28.4 mmol/L (21.0-32.0); Chloride 98 mmol/L (98-108); Creatinine, Serum 2.67 mg/dL (0.70-1.20); EST Glomerular Filtration Rate 23 (>60); Estimated Creatinine Clearance 18.89 ml/min (50-250); Glucose 94 mg/dL (70-99); Potassium 3.5 mmol/L (3.3-5.1); Sodium Level 139 mmol/L (133-145)
[2024-12-16] MEDS: Levothyroxine 50 MCG Tablet PO (05:46)
--- NOTE | 2024-12-16 07:00 | RAD_ITS ---
PROCEDURE: CHEST 1 VIEW (PORTABLE) 12/16/2024 REASON FOR EXAM: HYPOXEMIC RESPIRATORY FAILURE TECHNIQUE: Frontal view of the chest. COMPARISON: Chest x-ray dated 12/12/2024. FINDINGS: Overall there has been interval improvement in aeration throughout the patient's lungs when compared to prior examination. Residual infiltrate is noted within the right lung. Follow-up until complete resolution is recommended. The cardiac silhouette is prominent but stable. Post kyphoplasty changes present within the spine. Pacemaker remains overlying the left chest. RAD/Chest 1 View (Portable) IMPRESSION: Overall significantly improved aeration throughout the lungs. Follow-up until complete resolution is recommended. Reading Location: [facility]
[2024-12-16] MEDS: Ampicillin/Sulbactam 3 GM in 0.9% Normal Saline (100mL MB+) 100 ML IV (08:44)
[2024-12-16] MEDS: Pantoprazole Sodium 40 MG in 0.9% Normal Saline (100mL MB+) 100 ML 330 MG IV ×2 (08:45→21:29)
[2024-12-16] MEDS: Senna/Docusate Sodium 1 Tablet 2 TABLET PO ×2 (08:49→21:28)
[2024-12-16] MEDS: Potassium Chloride Oral Tablet 20 MEQ 40 MEQ PO ×2 (08:50→17:28)
[2024-12-16] MEDS: Loratadine 10 MG Tablet PO (08:50)
[2024-12-16] MEDS: Tamsulosin HCl 0.4 MG Capsule PO ×2 (08:50→21:28)
[2024-12-16] MEDS: Finasteride 5 MG Tablet PO (08:50)
[2024-12-16] MEDS: Ranolazine 500 MG Tablet PO ×2 (08:50→21:28)
[2024-12-16] MEDS: Furosemide 40 MG/4 ML Vial 80 MG IV (08:50)
--- NOTE | 2024-12-16 10:14 | PCMCONS.TICU ---
HPI Consult Data Date of Consult: 12/16/24 HPI Narrative Reason for Consultation: acute hypoxemic respiratory failure HPI Narrative: RICHIE HANSEN, is a 84yo c history of A-fib, COPD, CHF, CKD, ALVARADO, BPH, GERD, coronary artery disease, hypertension, anxiety who presented to [facility] ED 12/04/24 for rectal bleeding that started this a.m.? He had some pressure in his rectum and passed bright red blood.? In the ED patient's hemoglobin stable and vitally stable however he did have maroon stool on exam and given he is on Eliquis and reported a large amount of blood hospitalist contacted for admission and observation.? Patient evaluated at bedside, reports that he had been having normal bowel movements until this a.m. when he felt the pressure in his rectum he passed a large amount of bright red blood, has had more blood passed in the ED and is actively being changed during exam.? 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 Denies any fevers or chills, has been having shortness of breath over the past couple of months but is due to be fitted for a CPAP and follows with pulmonology.? Does take Eliquis with his last dose last night.? Denies any other new or acute complaints Pulmonology is asked to see patient due to his hypoxemic respiratory failure requiring NIPPV. CXR this AM demonstrating marked improvement/clearance of RUL and NAKIA opacities. Patient c/o dizziness, but breathing is much better. Down to 3LNC. [facility] Medical History Presence of cardiac pacemaker Complete heart 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 Intermittent complete heart block History of atrial fibrillation COPD (chronic obstructive pulmonary disease) with emphysema CHF (congestive heart failure) Hypoxia Chronic kidney disease Chronic anticoagulation Acute dyspnea Acute kidney injury Hypotension Abnormal abdominal ultrasound Persistent atrial fibrillation Hearing loss, left Hearing loss, right Anxiety Chronic pain Rheumatoid arthritis COPD (chronic obstructive pulmonary disease) Irregular heart beat Hypertension Hypothyroidism Hiatal hernia Acute constipation Acute exacerbation of chronic low back pain Wears glasses Thyroid disease Ambulates with cane Arthritis History of renal disease Anemia High cholesterol Easy bruising Excessive bleeding History of leukemia Back pain Difficulty chewing History of diverticulitis Gastric reflux Sleep apnea History of pain when walking History of edema History of echocardiogram History of stress test Cardiology follow-up encounter History of heart attack Nausea and vomiting Chronic anemia Diarrhea Colitis Sleep apnea Acute kidney injury superimposed on chronic kidney disease On amiodarone therapy Elevated LFTs Thoracic aortic aneurysm (TAA) Chronic heart failure with preserved ejection fraction (HFpEF) Nonrheumatic mitral (valve) insufficiency Atypical atrial flutter (12/2020) Elevated liver enzymes Debility Dysphagia Osteoarthritis History of colon polyps Cancer Kidney stones Kidney disease Non-smoker CPAP (continuous positive airway pressure) dependence Atrial fibrillation Myocardial infarct Chronic renal insufficiency Acute gastrointestinal bleeding Chronic kidney disease Benign prostatic hyperplasia Stage 3b chronic kidney disease GI bleed (2012) Non-rheumatic tricuspid valve insufficiency Secondary pulmonary arterial hypertension Essential (primary) hypertension BPH (benign prostatic hyperplasia) History of hyperthyroidism Paroxysmal atrial fibrillation 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 heart disease of [place] coronary artery without angina pectoris HLD (hyperlipidemia) Home Medications ?Medication ?Instructions ?Recorded ?Last Taken ?Type tamsulosin 0.4 mg capsule 0.4 mg PO BID PROSTATE 11/18/21 12/03/24 History vitamin B complex 1 cap PO BID SUPPLEMENT 05/01/22 12/03/24 History ascorbic acid (vitamin C) 500 mg 500 mg PO BID SUPPLEMENT 07/20/22 12/03/24 History tablet finasteride 5 mg tablet 5 mg PO DAILY PROSTATE 08/05/22 12/03/24 History cholecalciferol (vitamin D3) 25 1,000 unit PO QHS SUPPLEMENT 02/19/23 12/03/24 History mcg (1,000 unit) capsule (Vitamin D3) empagliflozin 10 mg tablet 10 mg PO DAILY DIABTETES #0 tabs 07/22/23 12/03/24 Rx (Jardiance) isosorbide mononitrate 30 mg 30 mg PO DAILY CHEST PAIN 02/28/24 12/03/24 History tablet,extended release 24 hr magnesium chloride 64 mg 64 mg PO BID SUPPLEMENT 02/28/24 12/03/24 History (magnesium chloride) tablet,delayed release (Mag 64) trazodone 50 mg tablet 25 mg PO QHS INSOMNIA 02/28/24 12/03/24 History amiodarone 100 mg tablet 100 mg PO BID HEART #180 tabs 02/29/24 12/03/24 Rx ferrous sulfate 325 mg (65 mg 325 mg PO QHS ANEMIA 03/20/24 12/03/24 History iron) tablet (Feosol) levothyroxine 50 mcg tablet 50 mcg PO DAILY THYROID 03/20/24 12/03/24 History apixaban 2.5 mg tablet (Eliquis) 2.5 mg PO BID Anticoagulant #60 03/24/24 12/03/24 Rx tabs diltiazem HCl 120 mg 120 mg PO DAILY heart rate 30 days 04/25/24 12/03/24 Rx capsule,extended release 24 hr #30 caps furosemide 20 mg tablet 20 mg PO BID fluid overload 08/28/24 12/03/24 History nitroglycerin 0.4 mg sublingual 0.4 mg sublingual Q5M PRN 08/28/24 Unknown Rx tablet Cardiac/Chest Pain #25 tabs pantoprazole 20 mg tablet,delayed 20 mg PO DAILY Gerd 08/28/24 12/03/24 History release potassium chloride 20 mEq 20 meq PO BID supplement 08/28/24 12/03/24 History tablet,extended release(part/cryst) acetaminophen 500 mg tablet 500 mg PO TID PRN pain 12/04/24 12/03/24 History (Acetaminophen Extra Strength) albuterol sulfate 2.5 mg/0.5 mL 2.5 mg inhalation Q6H PRN pain 12/04/24 Unknown History solution for nebulization baclofen 10 mg tablet 5 mg PO TID PRN muscle pain 12/04/24 12/03/24 History calcium carbonate (Antacid 400 mg PO Q6H Gerd 12/04/24 12/03/24 History (calcium carbonate)) calcium citrate 200 mg PO BID SUPPLEMENT 12/04/24 12/03/24 History clonidine HCl 0.1 mg tablet 0.05 - 0.1 mg PO DAILY PRN BP 12/04/24 Unknown History famotidine 20 mg tablet 20 mg PO BID Cardiac stent 12/04/24 12/03/24 History hydralazine 50 mg tablet 50 mg PO 4X/DAY B/P 12/04/24 12/03/24 History hydromorphone 2 mg tablet 1 - 2 mg PO QHS CHEST PAIN 12/04/24 12/03/24 History lidocaine 5 % topical patch 1 patch topical Q24H Pain 12/04/24 12/03/24 History (DermacinRx Lidocan) loratadine 10 mg tablet 10 mg PO DAILY allergies 12/04/24 12/03/24 History (Allerclear) meclizine 12.5 mg tablet 12.5 mg PO Q8H PRN dizziness 12/04/24 Unknown History ondansetron 4 mg disintegrating 4 mg PO Q4H PRN nausea 12/04/24 Unknown History tablet simethicone 125 mg capsule (Gas 125 mg PO TIDCM Gerd 12/04/24 12/03/24 History Relief (simethicone)) zoledronic acid 5 mg/100 mL in 1 ea IV .COMPLEX Bone 12/04/24 Unknown History mannitol 5 %-water intravenous piggybck (Reclast) Allergy/AdvReac Type Severity Reaction Status Date / Time diclofenac Allergy rash Verified 12/04/24 07:22 prednisone Allergy Rash Verified 12/04/24 07:22 Family History Father Cancer Prostate cancer Mother Hypertension Sister Hypertension Surgical History History of colonoscopy (03/26/24) History of back surgery History of cardiac catheterization History of esophagogastroduodenoscopy (EGD) History of cardioversion (06/18/19) History of radiofrequency ablation procedure for cardiac arrhythmia (11/11/11) History of electrophysiologic study (08/08/00) History of left heart catheterization (07/17/12) History of hemorrhoidectomy History of Zenaida fundoplication History of coronary artery stent placement (08/04/00) History of hernia repair History of back surgery Social History household members: none Smoking Status: Never smoker alcohol intake: never substance use type: does not use caffeine: No ROS ROS Narrative 10 or more systems reviewed and are engative except as per HPI Objective Data Objective Data Vital Signs: Vital Signs Last response Temperature 36.2 C L 12/16/24 08:37 Temperature Source Temporal 12/16/24 08:37 Pulse Rate 64 12/16/24 08:37 Pulse Strength Normal (2+) 12/15/24 10:00 Respiratory Rate 18 12/16/24 08:37 Respiratory Effort Normal, Non-Labored 12/16/24 08:33 Respiratory Depth Normal 12/16/24 08:33 Respiratory Pattern Normal 12/16/24 08:33 Blood Pressure 112/66 12/16/24 08:37 Blood Pressure Mean 81 12/16/24 08:37 Blood Pressure Source Monitor 12/16/24 08:37 Blood Pressure Position Sitting 12/16/24 08:37 Blood Pressure Location Right Arm 12/16/24 08:37 Baseline BP 102/67 12/10/24 22:00 Pulse Ox 94 12/16/24 08:37 Oxygen Delivery Method Nasal Cannula 12/16/24 08:37 Oxygen Flow Rate (L/min) 3 12/16/24 08:37 Fraction of Inspired Oxygen (FIO2) 35 12/16/24 03:01 I&O: I&O Last 24 Hours 12/15/24 12/15/24 12/16/24 11:59 23:59 11:59 Intake Total 372.2 / 1754.2 1382 / 1754.2 222 / 222 Output Total 900 / 5850 4950 / 5850 800 / 800 Balance -527.8 / -4095.8 -3568 / -4095.8 -578 / -578 I&O: Total Stay 12/04/24 07:21 thru 12/16/24 09:30 Intake Total 91286.16 Output Total 93371 Balance 2862.16 Current Meds Ordered / Administered: Current meds ordered / Administered Generic Name Dose Route Start Last Admin Trade Name Freq PRN Reason Stop Dose Admin Acetaminophen 325 - 650 mg 12/11/24 08:37 12/14/24 21:44 Acetaminophen 325 Mg Tablet PO 650 mg Q6H PRN PRN Administration Pain Score 1-10/10 /fever Al Hydroxide/Mg Hydroxide 15 ml 12/09/24 18:10 12/13/24 17:22 Mag Hydrox/Al Hydrox/Simeth 30 Ml Udc PO 15 ml Q4H PRN PRN Administration INDIGESTION Albuterol Sulfate 2.5 mg 12/04/24 12:01 Albuterol 2.5 Mg/3 Ml Vial.Neb. INHALATION Q2H PRN PRN SOB &/OR WHEEZING Atorvastatin Calcium 40 mg 12/09/24 22:00 12/15/24 22:05 Atorvastatin Calcium 40 Mg Tablet PO 40 mg QHS ILEANA Administration Ferrous Sulfate 325 mg 12/07/24 22:00 12/15/24 22:06 Ferrous Sulfate 325 Mg Tablet PO 325 mg QHS ILEANA Administration Finasteride 5 mg 12/04/24 12:01 12/16/24 08:50 Finasteride 5 Mg Tablet PO 5 mg DAILY ILEANA Administration Furosemide 80 mg 12/13/24 18:00 12/16/24 08:50 Furosemide 40 Mg/4 Ml Vial IV 80 mg BID@1000,1800 ILEANA Administration Pantoprazole Sodium 40 mg/ 110 mls @ 330 mls/hr 12/04/24 12:01 12/16/24 09:30 Sodium Chloride IV Infused Q12 ILEANA Infusion Sodium Chloride 100 mls @ 15 mls/hr 12/04/24 12:14 12/11/24 04:32 IV Infused .Q6H40M PRN Infusion Saline Flush Folic Acid 1 mg/ Sodium 50.2 mls @ 200 mls/hr 12/07/24 17:50 12/15/24 11:00 Chloride IV Infused DAILY ILEANA Infusion Sodium Chloride 1,000 mls @ 15 mls/hr 12/10/24 21:25 12/14/24 21:45 IV Not Given .Q48H ILEANA Ampicillin Sodium/Sulbactam 112 mls @ 150 mls/hr 12/12/24 11:20 12/16/24 09:30 Sodium 3 gm/ Sodium Chloride IV Infused Q12 ILEANA Infusion Levothyroxine Sodium 50 mcg 12/05/24 06:00 12/16/24 05:46 Levothyroxine 50 Mcg Tablet PO 50 mcg DAILY@0600 ILEANA Administration Loratadine 10 mg 12/04/24 12:01 12/16/24 08:50 Loratadine 10 Mg Tablet PO 10 mg Q48 ILEANA Administration Melatonin 3 mg 12/04/24 12:01 Melatonin 3 Mg Tablet PO QHS PRN PRN INSOMNIA Menthol 1 applic 12/06/24 01:00 12/12/24 20:51 Menthol 226.8 Gm Jar TOPICAL 1 applic TID PRN PRN Administration Arthritis Pain 1-10 Nitroglycerin 0.4 mg 12/09/24 03:12 12/09/24 03:42 Nitroglycerin (Inpatient Use) 0.4 Mg Tab.Subl SL 0.4 mg Q5M PRN Administration CARDIAC/CHEST PAIN Ondansetron HCl 4 mg 12/16/24 09:00 Ondansetron 4 Mg/2 Ml Vial IV Q4H PRN PRN NAUSEA/VOMITING Polyethylene Glycol 17 gm 12/13/24 17:59 12/13/24 18:15 Polyethylene Glycol 3350 17 Gm Packet PO 17 gm DAILY PRN Administration CONSTIPATION Potassium Chloride 40 meq 12/15/24 17:00 12/16/24 08:50 Potassium Chloride Oral Tablet 20 Meq PO 40 meq BIDCM ILEANA Administration Ranolazine 500 mg 12/10/24 22:00 12/16/24 08:50 Ranolazine 500 Mg Tablet PO 500 mg BID ILEANA Administration Senna/Docusate Sodium 2 tablet 12/07/24 10:00 12/16/24 08:49 Senna/Docusate Sodium 1 Tablet PO 2 tablet BID ILEANA Administration Sodium Chloride 10 - 40 ml 12/04/24 12:14 12/15/24 22:28 0.9% Saline Lock 10 Ml Syringe IV 10 ml UD PRN Administration SALINE FLUSH Tamsulosin HCl 0.4 mg 12/04/24 12:01 12/16/24 08:50 Tamsulosin Hcl 0.4 Mg Capsule PO 0.4 mg BID ILEANA Administration Trazodone HCl 25 mg 12/04/24 22:00 12/15/24 22:06 Trazodone 50 Mg Tablet PO 25 mg QHS ILEANA Administration Physical Exam Const alert, oriented x3 and no apparent distress General Appearance: cooperative and well developed HEENT normocephalic and head/scalp atraumatic HEENT Narrative: dry General Ear: hearing grossly impaired Throat: posterior oropharynx normal Eyes PERRL, EOMs intact bilaterally, conjunctivae normal and no scleral icterus Neck full ROM and no JVD Chest inspection of chest normal Resp normal respiratory effort and no use of accessory muscles Effort and Inspection: able to speak in complete sentences Auscultation: rales and diminished lung sounds Cardio regular rate and regular rhythm GI normal to inspection, nondistended, normoactive bowel sounds no CVA tenderness Extremity no clubbing, cyanosis or edema Skin no rashes or lesions noted Neuro oriented x3 and CN's II-XII intact bilaterally Speech: speech normal Psych cooperative and affect normal Lab / Micro Data 12/16/24 04:22 12/16/24 04:22 Labs: Laboratory Results - last 24 hr 12/16/24 04:22: WBC 13.2 H, RBC 2.09 L, Hgb 8.0 L, Hct 23.6 L, MCV 112.9 H, MCH 38.3 H, MCHC 33.9, RDW Std Deviation 62.3 H, RDW Coeff of Pablo 15.0 H, Plt Count 273, MPV 9.7, Immature Gran % (Auto) 1.400 H, Neut % (Auto) 85.3 H, Lymph % (Auto) 5.1 L, [place] % (Auto) 5.8, Eos % (Auto) 1.9, Baso % (Auto) 0.5, Absolute Neuts (auto) 11.3 H, Absolute Lymphs (auto) 0.68 L, Nucleated RBC % 0, Sodium 139, Potassium 3.5, Chloride 98, Carbon Dioxide 28.4, Anion Gap 13, BUN 47 H, Creatinine 2.67 H, Estim Creat Clear Calc 18.89 L, Est GFR (MDRD) Non-Af 23 L, BUN/Creatinine Ratio 17.6, Glucose 94, Calcium 8.0 Rhythm Strip Rhythm Strip: paced rhythm Rate: 60 Ectopy: PVC(s) Imaging Radiology Impression Chest X-Ray 12/16/24 07:00 IMPRESSION: Overall significantly improved aeration throughout the lungs. Follow-up until complete resolution is recommended. Reading Location: [id number] CXR from 12/16 personally reviewed and shown to patient and interpreted as improved Assessment and Plan . Assessment and plan: Pulmonary Problems: Hypoxemic Respiratory failure, acute bilateral pulmonary PNA vs edema or combination local enlarged lymph nodes OSAS Plan: 12/6cwp BIPAP QHS can be titrated to comfort NIPPV to also benefit cardiorenal interaction by augmenting transmural pressures and limiting negative-pressure driven plethora of the IVC and RA/RV continued diuretic strategy to decmopress the preload will also help full course of 7d for abx empirically for aspiration PNA John Greer MD [facility] Access [facility] The entirety of this encounter was done via Telemedicine
--- NOTE | 2024-12-16 11:20 | PN_ITS ---
Subjective Subjective Patient seen and examined. He still complained of a bit of dizziness this morning. He had no other complaints and is on 3L of oxygen today. Review of systems is otherwise negative. Objective Data Objective Data Vital Signs: Vital Signs Temp Pulse Resp BP Pulse Ox O2 Del Method O2 Flow Rate 97.1 F L 64 18 112/66 94 Nasal Cannula 3 12/16/24 08:37 12/16/24 08:37 12/16/24 08:37 12/16/24 08:37 12/16/24 08:37 12/16/24 08:37 12/16/24 08:37 FiO2 35 12/16/24 03:01 Oxygen Flow Rate (L/min) 3 Oxygen Delivery Method Nasal Cannula Weight: 140 lb 6.951 oz Body Mass Index (BMI) 21.3 Intake & Output: Intake and Output for Last 24 Hours 12/14/24 12/15/24 12/16/24 23:59 23:59 23:59 Intake Total 2094.70 / 2094.70 1754.2 / 1754.2 222 / 222 Output Total 2900 / 2900 5850 / 5850 800 / 800 Balance -805.30 / -805.30 -4095.8 / -4095.8 -578 / -578 Lab / Micro Data 12/16/24 04:22 12/16/24 04:22 Labs: Laboratory Results - last 24 hr 12/16/24 04:22: WBC 13.2 H, RBC 2.09 L, Hgb 8.0 L, Hct 23.6 L, MCV 112.9 H, MCH 38.3 H, MCHC 33.9, RDW Std Deviation 62.3 H, RDW Coeff of Pablo 15.0 H, Plt Count 273, MPV 9.7, Immature Gran % (Auto) 1.400 H, Neut % (Auto) 85.3 H, Lymph % (Auto) 5.1 L, [place] % (Auto) 5.8, Eos % (Auto) 1.9, Baso % (Auto) 0.5, Absolute Neuts (auto) 11.3 H, Absolute Lymphs (auto) 0.68 L, Nucleated RBC % 0, Sodium 139, Potassium 3.5, Chloride 98, Carbon Dioxide 28.4, Anion Gap 13, BUN 47 H, C reatinine 2.67 H, Estim Creat Clear Calc 18.89 L, Est GFR (MDRD) Non-Af 23 L, BUN/Creatinine Ratio 17.6, Glucose 94, Calcium 8.0 Radiography Diagnostic Testing: Radiology Impression Chest X-Ray 12/16/24 07:00 IMPRESSION: Overall significantly improved aeration throughout the lungs. Follow-up until complete resolution is recommended. Reading Location: [id number] Rhythm Strip Rhythm Strip: paced rhythm Rate: 60 Ectopy: PVC(s) Physical Exam Const alert, oriented x3 and no apparent distress Constitutional Narrative: frail, weak General Appearance: cooperative HEENT normocephalic, head/scalp atraumatic and moist oral mucous membranes Eyes PERRL and EOMs intact bilaterally Neck no lymphadenopathy and supple Lymph Lymphatic: no lymphadenopathy noted and no lymphedema noted Resp Resp Narrative: mildly diminished breath sounds bibasally, no wheezes or crackles. On oxygen 3L of oxygen by nasal canula Cardio regular rate, regular rhythm, S1 normal heart sound, S2 normal heart sound and no murmurs GI normal to inspection, nondistended, normoactive bowel sounds, soft to palpation, non-tender and non-distended Extremity normal capillary refill, no clubbing, cyanosis or edema and no calf tenderness General Extremity: no tenderness to palpation of joints or extremities Skin General Skin Exam: no breakdown Neuro CN's II-XII intact bilaterally and no focal motor deficits Motor Exam: strength 5/5 throughout and general weakness Psych thought process normal and cooperative Psych Narrative: frail and weak Appearance: appropriate Assessment & Plan Assessment/Plan (1) Elevated troponin: (2) Bright red blood per rectum: (3) Bradycardia: PLAN: Plan #Nonstemi * He had cardiac cath which showed EF of 60% and normal left ventricular wall motion and systolic function with previously placed stent in the mid LAD with 40 to 50% stenosis in second diagonal vessel with 90% proximal stenosis and a small vessel with mild diffuse distal disease present. Circumflex artery showed mild luminal irregularities less than 30% and RCA showed large dominant vessel with mild proximal disease and mild to moderate distal segment disease. * He had pacemaker insertion on 12/11/2024 * cardiology on board * 2D echo showed EF of 60% with severely enlarged left atrium and moderately severe 3+ tricuspid valve insufficiency and severe pulmonary hypertension * #Acute exacerbation of HFpEF * 2D echo as above * [place] [address]. * on IV lasix. Being weaned down on oxygen. * Chest x-ray showed interval development of a severe asymmetric right greater than left perihilar ill-defined airspace opacities which may represent marked pulmonary edema. * wbc today is 13.2. * #Orthostatic hypotension * resolved. * Dizziness has resolved and he feels much better. * #Dysphagia with likely aspiration * As above * #Acute on chronic hypoxic respiratory failure * Due to heart failure and probable aspiration pneumonia. * titrate oxygen to maintain sats more than 90%. * pulmonology on board. Being weaned down on oxygen. * patient desaturates very easily with the slightest exertion. He was requiring up to 10L with exertion, though at rest he requires only 3-4L of oxygen. * pulmonology on board. * continue diuresis with lasix IV 80mg bid per nephrology * #Bradycardia: * s/p pacemaker insertion. Stable. * #Hypokalemia: * Potassium is 3.5 today. * Will replace aggressively and trend potassium. * This is likely due to the diuresis with IV lasix #CKD IV * Cr has trended up slightly to 2.67. * nephrology on board * #Rectal bleeding * complained of bright red bleeding per rectum. 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 Colonoscopy showed only stool on cilon with some areas that looked like bleeding stigmata. * GI was ok with going back on his eliquis, * Now off heparin drip. He however had a pacemaker inserted so we will get the clearance from cardiology about when it is okay to resume Eliquis. * #Acute on chronic anemia: * Hemoglobin today is 7.6. * He does have a history of rectal bleeding but denies any such bleeding overnight. * monitor HH. #Hypertension * on hydralazine and cardizem at home but these are still on hold. * BP is 112/66 this morning, and still running low. Will monitor. * #Atrial fibrillation with low ventricular rate * amiodarone and eliquis on hold. * amiodarone and cardizem on hold. * #CAD s/p stents * s/p cardiac cath as above * on high intensity statin. Per cardiology to continue Imdur and ranolazine. * #BPH: on flomax and finasteride #Hypothyroidism: on synthroid #ALVARADO; on CPAP qhs. DVT prophylaxis: * SCDs * Disposition: awaiting placement in SNF Charges/Coding Visit Charges Inpatient E&M: 16538 Subs Hosp L2
[2024-12-16] MEDS: Folic Acid 1 MG in 0.9% Normal Saline (50mL Bag) 50 ML 200 MG IV (12:02)
[2024-12-16] MEDS: Acetaminophen 325 MG Tablet PO (14:44)
[2024-12-16] MEDS: traZODone 50 MG Tablet 25 MG PO (21:28)
[2024-12-16] MEDS: Ferrous Sulfate 325 MG Tablet PO (21:28)
[2024-12-16] MEDS: Atorvastatin Calcium 40 MG Tablet PO (21:28)
[2024-12-16] MEDS: 0.9% Saline Lock 10 ML Syringe IV (21:29)
[2024-12-17] VITALS (9 sets, daily range): BP systolic 100–120; BP diastolic 65–83; PULSE 59–100; RESP 12–22; TEMP 36.6–37.1; O2SAT 87–100; BMI 21.2
[2024-12-17 05:53] LABS: Absolute Lymphocyte Count 0.68 X10^3/uL (0.83-4.51); Absolute Neutrophil Count 10.1 X10^3/uL (2.0-7.7); Basophil# 0.05 X10^3/uL; Basophil% 0.4 % (0-1); Eosinophil# 0.22 X10^3/uL; Eosinophils% 1.8 % (0-5); Hematocrit 24.3 % (40-54); Lymphocyte # 0.68 X10^3/ul (0.83-4.51); Lymphocyte % 5.6 % (19-41); Mean Corp Hgb Conc 32.9 g/dL (32-36); Mean Corpuscular Hgb 37.6 pg (27.0-32.0); Mean Corpuscular Volume 114.1 fL (80-94); Monocyte# 0.84 X10^3/uL; NRBC Flagged by Analyzer 0 % (0-5); Neutrophil # 10.13 X10^3/uL (2.7-7.7); Neutrophil % 83.9 % (47-70); Platelet Count 301 K/mm3 (150-450); RBC Distribution Width CV 14.7 % (11.6-14.6); RBC Distribution Width SD 61.1 fl (35.1-43.9); Red Blood Count 2.13 M/mm3 (4.6-6.2); White Blood Count 12.1 K/mm3 (4.4-11.0)
[2024-12-17 06:17] LABS: Anion Gap 10 (5-15); BUN 45 mg/dL (4-19); BUN/Creat Ratio 16.7 RATIO (10-20); Calcium,Total 8.3 mg/dL (7.6-11.0); Carbon Dioxide 30.3 mmol/L (21.0-32.0); Chloride 99 mmol/L (98-108); Creatinine, Serum 2.68 mg/dL (0.70-1.20); EST Glomerular Filtration Rate 23 (>60); Estimated Creatinine Clearance 18.73 ml/min (50-250); Glucose 88 mg/dL (70-99); Sodium Level 139 mmol/L (133-145)
[2024-12-17] MEDS: Levothyroxine 50 MCG Tablet PO (06:34)
[2024-12-17] MEDS: Pantoprazole Sodium 40 MG in 0.9% Normal Saline (100mL MB+) 100 ML 330 MG IV (10:28)
[2024-12-17] MEDS: Folic Acid 1 MG in 0.9% Normal Saline (50mL Bag) 50 ML 200 MG IV (10:29)
[2024-12-17] MEDS: Ondansetron 4 MG/2 ML Vial IV (10:33)
[2024-12-17] MEDS: Furosemide 40 MG/4 ML Vial 80 MG IV ×2 (10:37→17:38)
[2024-12-17] MEDS: Potassium Chloride Oral Tablet 20 MEQ 40 MEQ PO ×2 (10:46→17:38)
[2024-12-17] MEDS: Ranolazine 500 MG Tablet PO (10:46)
[2024-12-17] MEDS: Finasteride 5 MG Tablet PO (10:46)
[2024-12-17] MEDS: Tamsulosin HCl 0.4 MG Capsule PO (10:46)
[2024-12-17] MEDS: Senna/Docusate Sodium 1 Tablet 2 TABLET PO (10:57)
--- NOTE | 2024-12-17 15:02 | PCM.TXEXTCAR ---
Diet Diet Order/Speech Therapy: 12/11/24 Breakfast Diet: Cardiac - Heart Healthy Routine Orders/Code Status Routine Lab Work: CBC (On 12/19/2024) Code Status: DNRCC-A (With intubation) DC O2, CPAP, BIPAP needs Home O2 Discharge instructions: Yes Type of respiratory needs?: Oxygen Oxygen frequency: Continuous Continuous oxygen liters per minute: 2l/min, At rest and With Ambulation Oxygen liters per minute during Ambulation: 2 L Wound(s) Left Great Toe: Wound Type: Abrasion right wrist: Wound Type: Puncture right groin: Wound Type: Puncture Left Chest: Wound Type: Surgical Incision Therapies Physical Therapy: Eval and Treat Occupational Therapy: Eval and Treat Problem/Diagnosis (1) Elevated troponin: Status: Acute Code(s): R79.89 - Other specified abnormal findings of blood chemistry (2) Bright red blood per rectum: Status: Acute Code(s): K62.5 - Hemorrhage of anus and rectum (3) Bradycardia: Status: Acute Code(s): R00.1 - Bradycardia, unspecified Comment: High-grade AV block (4) Acute respiratory failure: Status: Acute Code(s): J96.00 - Acute respiratory failure, unspecified whether with hypoxia or hypercapnia (5) Atrial fibrillation: Status: Chronic Code(s): I48.91 - Unspecified atrial fibrillation (6) Coronary artery disease: Status: Chronic Code(s): I25.10 - Atherosclerotic heart disease of [place] coronary artery without angina pectoris (7) Angiodysplasia of stomach: Status: Acute Code(s): K31.819 - Angiodysplasia of stomach and duodenum without bleeding Comment: With bleeding Allergies/Procedures Done in Hospital Allergies diclofenac Allergy (Verified 12/04/24 07:22) rash prednisone Allergy (Verified 12/04/24 07:22) Rash Procedures: Cardiac catheterization and - (Pacemaker insertion) Type of Care/Length of Stay Estimated LOS: Convalescent Care Less Than 30 days Type of Care Needed: Skilled Rehab Potential: Good Prognosis: Good Additional Orders/Day of Discharge H&P will serve as current which was dated: 12/04/24 Day of Discharge: 12/17/24 Dietary and Speech Recommendations Dietitian Recommendations/Changes: Continue cardiac diet. Will monitor weight trends. Follow Up Care Please Follow Up With: Tremaine Molina MD Discharge Plan Admission Admit Date/Time: 12/04/24 09:32 Primary Reason for Your Visit: Bright red rectal bleeding, high-grade AV block, atrial fibrillation Attending Provider: Nagi Shanks Primary Care Provider: César Chinchilla Consulting Providers: Emy Willard; Tremaine Molina; Socrates Smith; Ras Richard; Gurjit Mcpherson; Dinesh Peters; Melvin Murphy; Toby Butler; Carlos Gramajo; Gianna Del Rosario; Prabhu Arizmendi; Xander Martinez; John Greer; Radha Santos; Greg Caal; Maria M Dukes; Devaughn Ordonez; Chris Buckley; Jim Hatfield; Prem Milian; Ana Maria Velasquez; Mega Pimentel; Thanh Tabares; Hamilton Palencia; Gui Chinchilla; Dacia Gudino; Adela Farley Instructions Additional Instructions / Restrictions: Obtain CBC on 12/19/2024 Discharge Orders/Prescriptions Prescriptions: New albuterol sulfate 2.5 mg /3 mL (0.083 %) Solution For Nebulization 2.5 mg inhalation Q2H PRN PRN (Reason: SOB &/OR WHEEZING) Qty: 0 0RF atorvastatin 40 mg Tablet 40 mg PO QHS Qty: 0 0RF sennosides-docusate sodium [Stimulant Laxative Plus] 8.6-50 mg Tablet 2 tab PO BID Qty: 0 0RF melatonin 3 mg Tablet 3 mg PO QHS PRN PRN (Reason: Insomnia) Qty: 0 0RF potassium chloride 20 mEq Tablet,Er Particles/Crystals 40 meq PO BIDCM Qty: 0 0RF nitroglycerin 0.4 mg Tablet, Sublingual 0.4 mg sublingual Q5M PRN (Reason: Cardiac/Chest Pain) Qty: 0 0RF alum-mag hydroxide-simeth [Mag-Al Plus Extra Strength] 400-400-40 mg/5 mL Suspension 15 ml PO Q4H PRN PRN (Reason: Indigestion) Qty: 0 0RF menthol [Blue Gel] 2 % Gel 1 applic topical TID PRN PRN (Reason: Arthritis Pain 1-10) Qty: 0 0RF ranolazine 500 mg Tablet Extended Release 12 Hr 500 mg PO BID Qty: 0 0RF furosemide [Lasix] 80 mg tablet 80 mg PO BID Qty: 1 0RF Continued tamsulosin 0.4 mg capsule 0.4 mg PO BID ascorbic acid (vitamin C) 500 mg tablet 500 mg PO BID finasteride 5 mg tablet 5 mg PO DAILY trazodone 50 mg tablet 25 mg PO QHS pantoprazole 20 mg tablet,delayed release (DR/EC) 20 mg PO DAILY cholecalciferol (vitamin D3) [Vitamin D3] 25 mcg (1,000 unit) Capsule 1,000 unit PO QHS zoledronic [id number] [Reclast] 5 mg/100 mL piggyback 1 ea IV .COMPLEX Rx Instructions: 1 ea intravenously EVERY YEAR; acetaminophen [Acetaminophen Extra Strength] 500 mg tablet 500 mg PO TID PRN (Reason: pain) ferrous sulfate [Feosol] 325 mg (65 mg iron) tablet 325 mg PO QHS levothyroxine 50 mcg Tablet 50 mcg PO DAILY Eliquis 2.5 mg tablet 2.5 mg PO BID Qty: 60 2RF Discontinued magnesium chloride [Mag 64] 64 mg tablet,delayed release (DR/EC) 64 mg PO BID isosorbide mononitrate 30 mg tablet extended release 24 hr 30 mg PO DAILY furosemide 20 mg tablet 20 mg PO BID potassium chloride 20 mEq tablet,ER particles/crystals 20 meq PO BID nitroglycerin 0.4 mg tablet, sublingual 0.4 mg sublingual Q5M PRN (Reason: Cardiac/Chest Pain) Qty: 25 3RF vitamin B complex Capsule 1 cap PO BID Jardiance 10 mg Tablet 10 mg PO DAILY Qty: 0 0RF hydromorphone 2 mg tablet 1 - 2 mg PO QHS famotidine 20 mg tablet 20 mg PO BID loratadine [Allerclear] 10 mg tablet 10 mg PO DAILY albuterol sulfate 2.5 mg/0.5 mL solution for nebulization 2.5 mg inhalation Q6H PRN (Reason: pain) hydralazine 50 mg tablet 50 mg PO 4X/DAY Rx Instructions: SKIP IF BLOOD PRESSURE IS LESS THAN 110 ON TOP OR 60 ON BOTTOM clonidine HCl 0.1 mg tablet 0.05 - 0.1 mg PO DAILY PRN (Reason: BP) calcium citrate 200 mg (950 mg) tablet 200 mg PO BID ondansetron 4 mg tablet,disintegrating 4 mg PO Q4H PRN (Reason: nausea) Rx Instructions: give 1st dose 30min before emetogenic chemo calcium carbonate [Antacid (calcium carbonate)] 200 mg calcium (500 mg) tablet,chewable 400 mg PO Q6H simethicone [Gas Relief (simethicone)] 125 mg capsule 125 mg PO TIDCM baclofen 10 mg tablet 5 mg PO TID PRN (Reason: muscle pain) meclizine 12.5 mg tablet 12.5 mg PO Q8H PRN (Reason: dizziness) lidocaine [DermacinRx Lidocan] 5 % adhesive patch,medicated 1 patch topical Q24H Rx Instructions: leave on most painful area for up to 12 hrs diltiazem HCl 120 mg Capsule,Extended Release 24hr 120 mg PO DAILY 30 Days Qty: 30 0RF amiodarone 100 mg tablet 100 mg PO BID Qty: 180 3RF Referrals / Follow Up: Tremaine Molina MD [Med Staff - Active Staff] - See Referral Note (Follow-up on December 19, 2024 at 2 PM) César Chinchilla MD [Primary Care Provider] - Disposition Disposition (needs filled in before D/C Order can be placed): Long-Term Facility
--- NOTE | 2024-12-17 15:27 | PN.RENAL_ITS ---
Subjective Subjective Sitting up in bed. Denies any complaints. Objective Data Objective Data Vital Signs: Vital Signs Temp Pulse Resp BP Pulse Ox O2 Del Method O2 Flow Rate 97.8 F 85 16 104/68 96 Nasal Cannula 2 12/17/24 09:49 12/17/24 09:49 12/17/24 09:49 12/17/24 09:49 12/17/24 14:31 12/17/24 10:00 12/17/24 14:31 FiO2 35 12/17/24 05:49 Oxygen Flow Rate (L/min) 2 Oxygen Delivery Method Nasal Cannula Weight: 63.4 kg Body Mass Index (BMI) 21.2 Intake & Output: Intake and Output for Last 24 Hours 12/15/24 12/16/24 12/17/24 23:59 23:59 23:59 Intake Total 1754.2 / 1754.2 902.2 / 902.2 960.2 / 960.2 Output Total 5850 / 5850 1500 / 1500 1200 / 1200 Balance -4095.8 / -4095.8 -597.8 / -597.8 -239.8 / -239.8 Lab / Micro Data 12/17/24 05:16 12/17/24 05:16 Labs: Laboratory Results - last 24 hr 12/17/24 05:16: WBC 12.1 H, RBC 2.13 L, Hgb 8.0 L, Hct 24.3 L, MCV 114.1 H, MCH 37.6 H, MCHC 32.9, RDW Std Deviation 61.1 H, RDW Coeff of Pablo 14.7 H, Plt Count 301, MPV 10.0, Immature Gran % (Auto) 1.300 H, Neut % (Auto) 83.9 H, Lymph % (Auto) 5.6 L, [place] % (Auto) 7.0, Eos % (Auto) 1.8, Baso % (Auto) 0.4, Absolute Neuts (auto) 10.1 H, Absolute Lymphs (auto) 0.68 L, Nucleated RBC % 0, Sodium 139, Potassium 4.0, Chloride 99, Carbon Dioxide 30.3, Anion Gap 10, BUN 45 H, C reatinine 2.68 H, Estim Creat Clear Calc 18.73 L, Est GFR (MDRD) Non-Af 23 L, BUN/Creatinine Ratio 16.7, Glucose 88, Calcium 8.3 Rhythm Strip Rhythm Strip: paced rhythm Rate: 60 Ectopy: PVC(s) Physical Exam Narrative Alert and oriented x 3, no apparent distress S1, S2, RRR Lung sounds clear anteriorly, diminished breath sounds posterior bases. On O2 2 L nasal cannula Abdomen soft, nontender No edema bilateral lower legs or feet Assessment & Plan Assessment/Plan (1) CKD (chronic kidney disease) stage 4, GFR 15-29 ml/min: (2) Elevated troponin: (3) Bright red blood per rectum: PLAN: Plan Assessment/Plan: The patient is a 84-year-old male with past medical history significant for COPD, A-fib, hypertension, CKD stage G4, BPH, [place], coronary artery disease, moderate pulmonary hypertension, chronic heart failure with reduced EF (echo 12/10/2024: Severe pulmonary hypertension, moderately severe 3+ tricuspid valve insufficiency, left atrium severely enlarged, EF 60%) who presented to the emergency room on December 04 with complaints of bright red blood per rectum. Patient was also noted to have detectable troponin. Since admission patient has undergone EGD and colonoscopy with findings of some bleeding areas which were treated. Patient also had heart cath yesterday and PPM placed on 12/13/2024. Nephrology is following for CKD. Chronic kidney disease stage G4. Currently renal function is stable and near patient's baseline. Serum creatinine was 2.90 mg/dL on admission. Serum creatinine ranging around 2.40-2.60 mg/dL during this admission. Serum creatinine is stable today at 2.68 mg/dL. Potassium and bicarb normal. Patient appears to be volume up, so we will continue to diurese him with careful monitoring of renal function. Okay to continue current dose of IV furosemide. Overall volume status improving with Lasix, per cumulative I&O patient is net +2.6 L. 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 Labs ordered for morning.
--- NOTE | 2024-12-17 16:36 | DS.PCM_ITS ---
Providers Date of Admission: 12/04/24 Date of Discharge: 12/17/24 Primary Care Physician: Dr. César Chinchilla MD Consultations 12/04/24 12:01 Consult: Gastroenterology Routine Consulting Provider: [facility] Reason for Consult: GI bleed EMERGENT Consult: No Notified: Yes Date Notified: 12/04/24 Time Notified: 09:41 Method of Notification: ED Physician Initiated 12/05/24 07:24 Consult: Cardiology Routine Consulting Provider: Tremaine Molina Reason for Consult: chest pain, elevated trop, GIB EMERGENT Consult: No MD Notified: Yes Date Notified: 12/05/24 Time Notified: 07:24 Method of Notification: Verbal 12/09/24 07:43 Consult: Nephrology Routine Consulting Provider: Dacia Gudino Reason for Consult: CKD IV, uptrending creatinine, now NSTEMI suspect need for heart cath EMERGENT Consult: No Notified: Yes Date Notified: 12/09/24 Time Notified: 07:43 Method of Notification: Answering Service 12/12/24 11:19 Consult: [employer] / Pulmonary Medicine Routine Consulting Provider: [facility]/Pulmonary Med Reason for Consult: acute on chronic hypoxic respiratory failure EMERGENT Consult: No Notified: Yes Date Notified: 12/12/24 Time Notified: 11:19 Method of Notification: Text 12/12/24 11:27 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 #12 type II non-STEMI Medications at Discharge Home Medications tamsulosin 0.4 mg capsule 0.4 mg PO BID PROSTATE 11/18/21 ascorbic acid (vitamin C) 500 mg tablet 500 mg PO BID SUPPLEMENT 07/20/22 finasteride 5 mg tablet 5 mg PO DAILY PROSTATE 08/05/22 cholecalciferol (vitamin D3) 25 mcg (1,000 unit) capsule (Vitamin D3) 1,000 unit PO QHS SUPPLEMENT 02/19/23 trazodone 50 mg tablet 25 mg PO QHS INSOMNIA 02/28/24 ferrous sulfate 325 mg (65 mg iron) tablet (Feosol) 325 mg PO QHS ANEMIA 03/20/24 levothyroxine 50 mcg tablet 50 mcg PO DAILY THYROID 03/20/24 pantoprazole 20 mg tablet,delayed release 20 mg PO DAILY Gerd 08/28/24 acetaminophen 500 mg tablet (Acetaminophen Extra Strength) 500 mg PO TID PRN pain 12/04/24 zoledronic acid 5 mg/100 mL in mannitol 5 %-water intravenous piggybck (Reclast) 1 ea IV .COMPLEX Bone 12/04/24 albuterol sulfate 2.5 mg/3 mL (0.083 %) solution for nebulization 2.5 mg (3 mL) inhalation Q2H PRN PRN SOB &/OR WHEEZING #0 mL 12/17/24 aluminum-mag hydroxide-simethicone 400 mg-400 mg-40 mg/5 mL oral susp (Mag-Al Plus Extra Strength) 15 ml PO Q4H PRN PRN Indigestion #0 mL 12/17/24 atorvastatin 40 mg tablet 40 mg PO QHS cholesterol #0 tabs 12/17/24 furosemide 80 mg tablet (Lasix) 80 mg PO BID heart #1 TAB 12/17/24 melatonin 3 mg tablet 3 mg PO QHS PRN PRN Insomnia #0 tabs 12/17/24 menthol 2 % topical gel (Blue Gel) 1 applic topical TID PRN PRN Arthritis Pain 1-10 #0 grams 12/17/24 nitroglycerin 0.4 mg sublingual tablet 0.4 mg sublingual Q5M PRN Cardiac/Chest Pain #0 tabs 12/17/24 potassium chloride 20 mEq tablet,extended release(part/cryst) 40 meq (2 x 20 mEq) PO BIDCM supplement #0 tabs 12/17/24 ranolazine 500 mg tablet,extended release,12 hr 500 mg PO BID heart health #0 tabs 12/17/24 sennosides 8.6 mg-docusate sodium 50 mg tablet (Stimulant Laxative Plus) 2 tab PO BID constipation #0 tabs 12/17/24 Hospital Course Operations None Procedures 2-D Echocardiogram, Cardiac catheterization, Colonoscopy, EGD and - (Pacemaker insertion) Summary of Care Provided Minutes Spent on Discharge: 33 Hospital Course: This 84-year-old white male was seen in the emergency room at [facility] with complaints of rectal bleeding. Patient denied any melena. Patient had maroon stool on examination, his hemoglobin was 14.4, chemistry profile was remarkable for creatinine to 2.94, BUN of 42. Patient was admitted to [place] [id number] and seen in consultation by gastroenterology. Labs were monitored. While he was on the third floor, patient developed chest discomfort, EKGs demonstrated some changes which were concerning and troponin was drawn which was noted to be elevated and cardiology was called for further recommendation. Patient was transferred to PCU, patient was on amiodarone and Cardizem, his beta-asia was held and due to the rectal bleeding his anticoagulation was held. Patient underwent an EGD which revealed 2 bleeding angiodysplastic lesions in the stomach, there is noted to be an angiodysplastic lesion in the duodenum. These areas were treated. Colonoscopy was performed, there were multiple small and large mouth diverticula in the entire colon, there were areas in the sigmoid colon that exhibited bleeding stigmata. A cardiac catheterization was carried out, there was noted to be single-vessel coronary artery disease involving the second diagonal vessel and previously stented LAD with moderate in-stent stenosis with a preserved ejection fraction, it was recommended the patient be treated medically. Patient developed a high-grade AV block and a pacemaker had to be implanted. Patient was seen in consultation by nephrology due to elevated renal functions. Patient was seen by PT and OT, it was recommended that the patient go to a residential facility for inpatient PT and OT. On 12/17/2024, patient was seen and examined: On examination he appeared in good health and spirits. Vital signs as documented. Skin warm and dry and without overt rashes. Neck without JVD, neck was supple, trachea midline, thyroid was normal. Lungs clear bilaterally, normal air movement was noted. Heart exam notable for regular rhythm, normal sounds and absence of murmurs, rubs or gallops. Abdomen unremarkable and without evidence of organomegaly, masses, or abdominal aortic enlargement. Bowel sounds are present, abdomen is not distended. Extremities nonedematous, no cyanosis was noted, no clubbing was noted. Neuro: Cranial nerves II through XII are grossly intact, no focal motor deficits were noted, sensation to light touch and pinprick intact, motor exam 5/5 throughout. Psych: Patient is alert and oriented x3, he does not appear anxious or depressed, he does not appear agitated. Patient was transferred to TCU in stable condition on 12/17/2024 for inpatient rehab Weight / BMI Weight Weight: 63.4 kg Body Mass Index (BMI) 21.2 ABG / Lab / Microbiology Data 12/17/24 05:16 12/17/24 05:16 Laboratory: Laboratory Results - last 24 hr 12/17/24 05:16: WBC 12.1 H, RBC 2.13 L, Hgb 8.0 L, Hct 24.3 L, MCV 114.1 H, MCH 37.6 H, MCHC 32.9, RDW Std Deviation 61.1 H, RDW Coeff of Pablo 14.7 H, Plt Count 301, MPV 10.0, Immature Gran % (Auto) 1.300 H, Neut % (Auto) 83.9 H, Lymph % (Auto) 5.6 L, Harrison % (Auto) 7.0, Eos % (Auto) 1.8, Baso % (Auto) 0.4, Absolute Neuts (auto) 10.1 H, Absolute Lymphs (auto) 0.68 L, Nucleated RBC % 0, Sodium 139, Potassium 4.0, Chloride 99, Carbon Dioxide 30.3, Anion Gap 10, BUN 45 H, C reatinine 2.68 H, Estim Creat Clear Calc 18.73 L, Est GFR (MDRD) Non-Af 23 L, BUN/Creatinine Ratio 16.7, Glucose 88, Calcium 8.3 D/C Instructions Discharge Diet: No restrictions (as you feel able. No excessive stretching. No lifting your arm over your head (keep elbow below shoulder level) until seen for your pacemaker check. Do not lift your elbow away from your side until you are seen for your first visit. Keep the arm sling on if it helps remind you not to lift your arm.) May shower in (days): 2 Additional Activity Instructions: May shower or bathe on [day 3]. Do not scrub the incision or soak in the tub. Just wash with soap and let the water run over the incision. Gently pat dry with towel. Medications: Take your pain medication as directed. Refer to your discharge instruction sheet for a list of medications you are to take. Call your doctor if your incision/area has: Continuous Slow Oozing, Sudden Increased Bleeding, Increased Pain/ Swelling, Increased Redness, Foul Smelling Discharge and Swelling at the incision site Call your doctor if you observe: Fever of 101 or Higher, Shortness of breath, Dizziness, Fainting spells, Swelling in the ankles, Chest pain, Prolonged hiccupping and Increased palpitations (irregular heartbeat) Suture Line Care: Avoid Pulling/Pushing and Avoid Pinching/Bending Cleanse incision/area with: Do not get Incision Wet and Keep Dressing Clean & Dry Additional Dressing/Incision Instructions: When dressing is removed, wash and dry incision. Keep covered with a light bandage if it is rubbing against your clothing. Do not cover the incision with an airtight bandage. Change the bandage daily. Do not remove steri strips. The strips will fall off on their own. DC O2, CPAP, BIPAP Needs Home O2 Discharge instructions: Yes Type of respiratory needs?: Oxygen Oxygen frequency: Continuous Continuous oxygen liters per minute: 2l/min, At rest and With Ambulation Oxygen liters per minute during Ambulation: 2 L DC home with Oxygen: Yes Home O2 MD Review: I have reviewed the oxygen testing, and the patient qualifies for home oxygen equipment and portability. The patient is mobile in the home and the community. Please Follow Up With: Tremaine Molina MD When: Pacer follow-up on December 19 at 2 PM Meaningful Use Info Meaningful Use Meaningful Use Diagnoses (Choose all that apply): CHF CHF ARIELLE/ARB ordered at discharge?: No Reason ARIELLE/ARB not ordered?: Not indicated and Worsening renal function Documented LVEF (%): 60 Ischemic Stroke Statin Dosing Therapy Reference: STATIN DOSE THERAPY REFERENCE: * Patients > 75 years receive moderate or high dose statin therapy. * Patients 75 years or YOUNGER should receive HIGH intensity statin dose unless contraindicated. You will be required to document reason for non-treatment if statin daily dose does not meet guidelines. HIGH DOSE STATIN THERAPY DAILY Atorvastatin > than or = to 40 mg Rosuvastatin > than or = to 20 mg Amlodipine + Atorvastatin > than or = to 2.5/40 mg Ezetimibe + Simvastatin 10/80 mg Simvastatin 80mg Discharge Plan Admission Admit Date/Time: 12/04/24 09:32 Primary Reason for Your Visit: Bright red rectal bleeding, high-grade AV block, atrial fibrillation Attending Provider: Nagi Shanks Primary Care Provider: César Chinchilla Consulting Providers: mEy Willard; Tremaine Molina; Socrates Smith; Ras Richard; Gurjit Mcpherson; Dinesh Peters; Melvin Murphy; Toby Butler; Carlos Gramajo; Gianna Del Rosario; Prabhu Arizmendi; Xander Martinez; John Greer; Radha Santos; Greg Caal; Maria M Dukes; Devaughn Ordonez; Chris Buckley; Jim Hatfield; Prem Milian; Ana Maria Velasquez; Mega Pimentel; Thanh Tabares; Hamilton Palencia; Gui Chinchilla; Dacia Gudino; Adela Farley Instructions Additional Instructions / Restrictions: Obtain CBC on 12/19/2024 Discharge Orders/Prescriptions Prescriptions: New albuterol sulfate 2.5 mg /3 mL (0.083 %) Solution For Nebulization 2.5 mg inhalation Q2H PRN PRN (Reason: SOB &/OR WHEEZING) Qty: 0 0RF atorvastatin 40 mg Tablet 40 mg PO QHS Qty: 0 0RF sennosides-docusate sodium [Stimulant Laxative Plus] 8.6-50 mg Tablet 2 tab PO BID Qty: 0 0RF melatonin 3 mg Tablet 3 mg PO QHS PRN PRN (Reason: Insomnia) Qty: 0 0RF potassium chloride 20 mEq Tablet,Er Particles/Crystals 40 meq PO BIDCM Qty: 0 0RF nitroglycerin 0.4 mg Tablet, Sublingual 0.4 mg sublingual Q5M PRN (Reason: Cardiac/Chest Pain) Qty: 0 0RF alum-mag hydroxide-simeth [Mag-Al Plus Extra Strength] 400-400-40 mg/5 mL Suspension 15 ml PO Q4H PRN PRN (Reason: Indigestion) Qty: 0 0RF menthol [Blue Gel] 2 % Gel 1 applic topical TID PRN PRN (Reason: Arthritis Pain 1-10) Qty: 0 0RF ranolazine 500 mg Tablet Extended Release 12 Hr 500 mg PO BID Qty: 0 0RF furosemide [Lasix] 80 mg tablet 80 mg PO BID Qty: 1 0RF Continued tamsulosin 0.4 mg capsule 0.4 mg PO BID ascorbic acid (vitamin C) 500 mg tablet 500 mg PO BID finasteride 5 mg tablet 5 mg PO DAILY trazodone 50 mg tablet 25 mg PO QHS pantoprazole 20 mg tablet,delayed release (DR/EC) 20 mg PO DAILY cholecalciferol (vitamin D3) [Vitamin D3] 25 mcg (1,000 unit) Capsule 1,000 unit PO QHS zoledronic [id number] [Reclast] 5 mg/100 mL piggyback 1 ea IV .COMPLEX Rx Instructions: 1 ea intravenously EVERY YEAR; acetaminophen [Acetaminophen Extra Strength] 500 mg tablet 500 mg PO TID PRN (Reason: pain) ferrous sulfate [Feosol] 325 mg (65 mg iron) tablet 325 mg PO QHS levothyroxine 50 mcg Tablet 50 mcg PO DAILY Discontinued magnesium chloride [Mag 64] 64 mg tablet,delayed release (DR/EC) 64 mg PO BID isosorbide mononitrate 30 mg tablet extended release 24 hr 30 mg PO DAILY furosemide 20 mg tablet 20 mg PO BID potassium chloride 20 mEq tablet,ER particles/crystals 20 meq PO BID nitroglycerin 0.4 mg tablet, sublingual 0.4 mg sublingual Q5M PRN (Reason: Cardiac/Chest Pain) Qty: 25 3RF vitamin B complex Capsule 1 cap PO BID Jardiance 10 mg Tablet 10 mg PO DAILY Qty: 0 0RF hydromorphone 2 mg tablet 1 - 2 mg PO QHS famotidine 20 mg tablet 20 mg PO BID loratadine [Allerclear] 10 mg tablet 10 mg PO DAILY albuterol sulfate 2.5 mg/0.5 mL solution for nebulization 2.5 mg inhalation Q6H PRN (Reason: pain) hydralazine 50 mg tablet 50 mg PO 4X/DAY Rx Instructions: SKIP IF BLOOD PRESSURE IS LESS THAN 110 ON TOP OR 60 ON BOTTOM clonidine HCl 0.1 mg tablet 0.05 - 0.1 mg PO DAILY PRN (Reason: BP) calcium citrate 200 mg (950 mg) tablet 200 mg PO BID ondansetron 4 mg tablet,disintegrating 4 mg PO Q4H PRN (Reason: nausea) Rx Instructions: give 1st dose 30min before emetogenic chemo calcium carbonate [Antacid (calcium carbonate)] 200 mg calcium (500 mg) tablet,chewable 400 mg PO Q6H simethicone [Gas Relief (simethicone)] 125 mg capsule 125 mg PO TIDCM baclofen 10 mg tablet 5 mg PO TID PRN (Reason: muscle pain) meclizine 12.5 mg tablet 12.5 mg PO Q8H PRN (Reason: dizziness) lidocaine [DermacinRx Lidocan] 5 % adhesive patch,medicated 1 patch topical Q24H Rx Instructions: leave on most painful area for up to 12 hrs Eliquis 2.5 mg tablet 2.5 mg PO BID Qty: 60 2RF diltiazem HCl 120 mg Capsule,Extended Release 24hr 120 mg PO DAILY 30 Days Qty: 30 0RF amiodarone 100 mg tablet 100 mg PO BID Qty: 180 3RF Referrals / Follow Up: Tremaine Molina MD [Med Staff - Active Staff] - See Referral Note (Follow-up on December 19, 2024 at 2 PM) César Chinchilla MD [Primary Care Provider] - Disposition Disposition (needs filled in before D/C Order can be placed): Long Term Facility Charges/Coding Visit Charges Inpatient E&M: 11688 Disch Hosp >30min
[2024-12-17] MEDS: 0.9% Saline Lock 10 ML Syringe IV (17:38)
--- NOTE | 2024-12-17 17:51 | NURSING ---
Report called to Je[facility] on TCU
--- NOTE | 2024-12-17 18:05 | PN_ITS ---
Progress Note The patient has not had any more signs or symptoms of GI bleeding since being in the hospital and undergone treatment endoscopically. Physical Exam Narrative Alert and oriented x 3, no apparent distress S1, S2, RRR Lung sounds clear anteriorly, diminished breath sounds posterior bases. On O2 2 L nasal cannula Abdomen soft, nontender No edema bilateral lower legs or feet Assessment & Plan Assessment/Plan (1) Elevated troponin: (2) Bright red blood per rectum: (3) Bradycardia: PLAN: Plan GI bleeding * complained of bright red bleeding per rectum. 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 Colonoscopy showed only stool and diverticulosis with some areas that looked like bleeding stigmata. * HAS-BLED Score for Major Bleeding Risk : 5 Scores greater than 5 were too rare to determine risk, but are likely over 10%. Alternatives to anticoagulation should be considered: Patient is at very high risk for major bleeding. * Visit Charges Inpatient E&M: 24585 Subs Hosp L3
== END 2024-12-17 18:17 | disposition skilled nursing facility (03) | DRG 981 ==
LOC: ED 11:19 → ICU 11:42 → MS3 17:03 → PCU 12-05 09:18 → ICU 12-09 05:42 → PCU 12-14 15:43
PROVIDERS: Anesthesiology; Internal Medicine; Internal Medicine Cardiovascular Disease; Internal Medicine Critical Care Medicine; Internal Medicine Gastroenterology; Internal Medicine Interventional Cardiology; Student in an Organized Health Care Education/Training Program; Admitting Provider Internal Medicine; Emergency Provider Emergency Medicine; PCP Family Medicine; Visit Provider Internal Medicine
PROC: 0DJD8ZZ Inspection of Lower Intestinal Tract, Via Natural or Artificial Opening Endoscopic (ICD-10-PCS; CPT 45378; principal; 2024-12-06 12:25)
DX: K31.811 Angiodysplasia of stomach and duodenum with bleeding (principal); I49.02 Ventricular flutter; J69.0 Pneumonitis due to inhalation of food and vomit; I21.4 Non-ST elevation (NSTEMI) myocardial infarction; I50.33 Acute on chronic diastolic (congestive) heart failure; J96.21 Acute and chronic respiratory failure with hypoxia; I44.2 Atrioventricular block, complete; N18.4 Chronic kidney disease, stage 4 (severe); D68.32 Hemorrhagic disorder due to extrinsic circulating anticoagulants; I13.0 Hypertensive heart and chronic kidney disease with heart failure and stage 1 through stage 4 chronic kidney disease, or unspecified chronic kidney disease; I47.21 Torsades de pointes; I25.110 Atherosclerotic heart disease of native coronary artery with unstable angina pectoris; T82.855A Stenosis of coronary artery stent, initial encounter; I48.21 Permanent atrial fibrillation; N13.8 Other obstructive and reflux uropathy; K57.31 Diverticulosis of large intestine without perforation or abscess with bleeding; J44.9 Chronic obstructive pulmonary disease, unspecified; D63.1 Anemia in chronic kidney disease; E03.9 Hypothyroidism, unspecified; I27.20 Pulmonary hypertension, unspecified; I07.1 Rheumatic tricuspid insufficiency; I48.0 Paroxysmal atrial fibrillation; E78.00 Pure hypercholesterolemia, unspecified; G47.33 Obstructive sleep apnea (adult) (pediatric); K44.9 Diaphragmatic hernia without obstruction or gangrene; E87.6 Hypokalemia; I44.39 Other atrioventricular block; I95.1 Orthostatic hypotension; X58.XXXA Exposure to other specified factors, initial encounter; N40.1 Benign prostatic hyperplasia with lower urinary tract symptoms; G89.29 Other chronic pain; I49.3 Ventricular premature depolarization; Z95.0 Presence of cardiac pacemaker; Z95.5 Presence of coronary angioplasty implant and graft; Z79.01 Long term (current) use of anticoagulants; Z79.83 Long term (current) use of bisphosphonates; Z79.890 Hormone replacement therapy; Z79.899 Other long term (current) drug therapy
CPT/HCPCS: 33207; 33210; 36415; 71045; 71047; 80048; 80061; 83605; 83735; 83880; 84145; 84443; 84484; 85014; 85018; 85025; 85027; 85610; 85730; 86850; 86900; 86901; 92610; 93005; 93306; 93454; 94002; 94003; 94660; 94668; 94762; 97116; 97162; 97166; 97530; 97535; 99152; 99153; 99284; C1889; Q9967; A4216; C1769; C1894; J0295; J1938; J2405; J2916; J3420

== ENCOUNTER 2024-12-17 18:48 | Inpatient (IN) | payer MEDICARE, OTHER, SELFPAY ==
[2024-12-17 18:33] VITALS: BP 110/68; PULSE 60; RESP 16; TEMP 36.5; O2SAT 97; BMI 19.3
--- NOTE | 2024-12-17 19:18 | NURSING ---
Discharge orders and Discharge summary medications did not correlate. Messaged doctor from discharge and spoke with him on the phone. Per Dr. Nagi Shanks, Dr. Molina ([employer]) does not want patient to restart eliquis s/p PACER Placement until patient follows up 12/19/24 at PACER Check appt with Dr. Molina.
--- NOTE | 2024-12-17 19:42 | PCM.HP.STD ---
[facility] - General General Date of Admission: 12/17/24 Date of Service: 12/18/24 Chief Complaint: Here for rehabilitation. [facility] Narrative RICHIE HANSEN, is a 84 Male who presents with followin12/04/2024 [facility] ED rectal bleeding. Bright red blood per rectum, rectal pressure, history of hemorrhoids, on Eliquis for atrial fibrillation. Hemoglobin 14.4, BUN 42, Creatinine 2.94. 12/04/2024 Admit [facility]. Dr. Hodges consult, IV PPI, Hold Eliquis, serial H&H for lower GI bleed. 12/05/2024 Chest pain, elevated troponin. Hemoglobin stable, but BRBPR persists. Cardiology continued amiodarone, restart Diltiazem, restart Imdur at higher dose. 12/06/2024 Dr. 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 1 duodenal non-bleeding angioplastic lesion treated with heater probe. 12/06/2024 Dr. Hodges colonoscopy diverticulosis entire colon, sigmoid colon with stigmata of bleeding, ileus normal. 12/07/2024 Watery stool, 1 was bright red, abdominal cramping. Hemoglobin 9.4, IV fluids given for low blood pressure. Chest pain resolved. 12/08/2024 Reflux symptoms, shortness of breath after IV fluids. Eliquis restarted last night, no further bleeding. Give Lasix for fluid overload, oxygen 2 liters per NC. 12/09/2024 Chest pain, NTG given, Troponin 1700, transfer to ICU, start heparin drip, ntg drip. 12/09/2024 No chest pain, nuclear stress test recommended. Lasix IV for acute HFpEF. Creatinine 2.49, consult Renal. Hemoglobin stable. 12/10/2024 Echo normal LV size, LVSF normal, EF 60%, LA severely enlarged. 3+ tricuspid insufficiency, severe pulmonary HTN. 12/10/2024 Dr. Molina, heart cath showed single vessel cad involving a second diagonal vessel and previously stented LAD with in stent stenosis. Aggressive medical therapy recommended. 12/11/2024 Pacemaker inserted for bradycardia, heart rate 40's. On AirVo. IV Lasix for acute HFpEF. 12/12/2024 Choking with swallowing, short of breath, oxygen 15 liters. IV antibiotics for aspiration pneumonia. Consult pulmonary for acute on chronic respiratory failure. Hemoglobin 7.1, Hold Lovenox, recta bleeding resolved. 12/13/2024 BiPAP overnight to oxygen nasal cannula. ST cleared patient. Lasix IV acute HFpEF. 12/14/2024 Dizziness, lightheadedness, nausea, orthostatics positive. Normal saline IV 75cc/hour for orthostatic hypotension. Hemoglobin 7.3. 12/15/2024 Feeling much better, breathing improved. Oxygen 4 liters at rest, 10 liters with exertion. WBC 9.8, Dizziness resolved. Lasix 80mg iv bid for acute HFpEF, acute respiratory failure with hypoxia. K 2.8, aggressively replace. 12/16/2024 Dizziness, oxygen 3 liters. Creatinine 2.67, higher. Hemoglobin 7.6. 12/17/2024 Admit to TCU with debility, here for rehabilitation, strengthening, prior to discharge home alone. [facility] Medical History Presence of cardiac pacemaker Complete heart 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 Intermittent complete heart block History of atrial fibrillation COPD (chronic obstructive pulmonary disease) with emphysema CHF (congestive heart failure) Hypoxia Chronic kidney disease Chronic anticoagulation Acute dyspnea Acute kidney injury Hypotension Abnormal abdominal ultrasound Persistent atrial fibrillation Hearing loss, left Hearing loss, right Anxiety Chronic pain Rheumatoid arthritis COPD (chronic obstructive pulmonary disease) Irregular heart beat Hypertension Hypothyroidism Hiatal hernia Acute constipation Acute exacerbation of chronic low back pain Wears glasses Thyroid disease Ambulates with cane Arthritis History of renal disease Anemia High cholesterol Easy bruising Excessive bleeding History of leukemia Back pain Difficulty chewing History of diverticulitis Gastric reflux Sleep apnea History of pain when walking History of edema History of echocardiogram History of stress test Cardiology follow-up encounter History of heart attack Nausea and vomiting Chronic anemia Diarrhea Colitis Sleep apnea Acute kidney injury superimposed on chronic kidney disease On amiodarone therapy Elevated LFTs Thoracic aortic aneurysm (TAA) Chronic heart failure with preserved ejection fraction (HFpEF) Nonrheumatic mitral (valve) insufficiency Atypical atrial flutter (12/2020) Elevated liver enzymes Debility Dysphagia Osteoarthritis History of colon polyps Cancer Kidney stones Kidney disease Non-smoker CPAP (continuous positive airway pressure) dependence Atrial fibrillation Myocardial infarct Chronic renal insufficiency Acute gastrointestinal bleeding Chronic kidney disease Benign prostatic hyperplasia Stage 3b chronic kidney disease GI bleed (2012) Non-rheumatic tricuspid valve insufficiency Secondary pulmonary arterial hypertension Essential (primary) hypertension BPH (benign prostatic hyperplasia) History of hyperthyroidism Paroxysmal atrial fibrillation 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 heart disease of [place] coronary artery without angina pectoris HLD (hyperlipidemia) Home Medications ?Medication ?Instructions ?Recorded ?Last Taken ?Type tamsulosin 0.4 mg capsule 0.4 mg PO BID PROSTATE 11/18/21 12/03/24 History ascorbic acid (vitamin C) 500 mg 500 mg PO BID SUPPLEMENT 07/20/22 12/03/24 History tablet finasteride 5 mg tablet 5 mg PO DAILY PROSTATE 08/05/22 12/03/24 History cholecalciferol (vitamin D3) 25 1,000 unit PO QHS SUPPLEMENT 02/19/23 12/03/24 History mcg (1,000 unit) capsule (Vitamin D3) trazodone 50 mg tablet 25 mg PO QHS INSOMNIA 02/28/24 12/03/24 History ferrous sulfate 325 mg (65 mg 325 mg PO QHS ANEMIA 03/20/24 12/03/24 History iron) tablet (Feosol) levothyroxine 50 mcg tablet 50 mcg PO DAILY THYROID 03/20/24 12/03/24 History pantoprazole 20 mg tablet,delayed 20 mg PO DAILY Gerd 08/28/24 12/03/24 History release acetaminophen 500 mg tablet 500 mg PO TID PRN pain 12/04/24 12/03/24 History (Acetaminophen Extra Strength) zoledronic acid 5 mg/100 mL in 1 ea IV .COMPLEX Bone 12/04/24 Unknown History mannitol 5 %-water intravenous piggybck (Reclast) albuterol sulfate 2.5 mg/3 mL 2.5 mg (3 mL) inhalation Q2H PRN 12/17/24 Unknown Rx (0.083 %) solution for nebulization PRN SOB &/OR WHEEZING #0 mL aluminum-mag hydroxide-simethicone 15 ml PO Q4H PRN PRN Indigestion 12/17/24 Unknown Rx 400 mg-400 mg-40 mg/5 mL oral susp #0 mL (Mag-Al Plus Extra Strength) atorvastatin 40 mg tablet 40 mg PO QHS cholesterol #0 tabs 12/17/24 Unknown Rx furosemide 80 mg tablet (Lasix) 80 mg PO BID heart #1 TAB 12/17/24 Unknown Rx melatonin 3 mg tablet 3 mg PO QHS PRN PRN Insomnia #0 12/17/24 Unknown Rx tabs menthol 2 % topical gel (Blue Gel) 1 applic topical TID PRN PRN 12/17/24 Unknown Rx Arthritis Pain 1-10 #0 grams nitroglycerin 0.4 mg sublingual 0.4 mg sublingual Q5M PRN 12/17/24 Unknown Rx tablet Cardiac/Chest Pain #0 tabs potassium chloride 20 mEq 40 meq (2 x 20 mEq) PO BIDCM 12/17/24 Unknown Rx tablet,extended release(part/cryst) supplement #0 tabs ranolazine 500 mg tablet,extended 500 mg PO BID heart health #0 tabs 12/17/24 Unknown Rx release,12 hr sennosides 8.6 mg-docusate sodium 2 tab PO BID constipation #0 tabs 12/17/24 Unknown Rx 50 mg tablet (Stimulant Laxative Plus) Allergy/AdvReac Type Severity Reaction Status Date / Time diclofenac Allergy rash Verified 12/04/24 07:22 prednisone Allergy Rash Verified 12/04/24 07:22 Family History Father Cancer Prostate cancer Mother Hypertension Sister Hypertension Surgical History History of colonoscopy (03/26/24) History of back surgery History of cardiac catheterization History of esophagogastroduodenoscopy (EGD) History of cardioversion (06/18/19) History of radiofrequency ablation procedure for cardiac arrhythmia (11/11/11) History of electrophysiologic study (08/08/00) History of left heart catheterization (07/17/12) History of hemorrhoidectomy History of Zenaida fundoplication History of coronary artery stent placement (08/04/00) History of hernia repair History of back surgery Social History household members: none Smoking Status: Never smoker alcohol intake: never substance use type: does not use caffeine: No ROS Constitutional Constitutional: Reports weakness; Denies chills, fever(s) or weight gain ENT HEENT: Denies headache(s), nasal congestion or nasal discharge Cardiovascular Cardiovascular: Denies chest pain or palpitations Respiratory/Chest Respiratory/Chest: Reports shortness of breath with exertion; Denies cough or excessive phlegm production Gastrointestinal Gastrointestinal: Denies abdominal pain, nausea or vomiting Genitourinary Genitourinary: Denies dysuria Musculoskeletal Musculoskeletal: Denies joint pain or joint swelling Integumentary Integumentary: Denies rash or wounds Neurologic Neurologic: Denies focal weakness, numbness or tingling Psychiatric Psychiatric: Denies anxiety, auditory hallucinations, depression, homicidal ideation or suicidal ideation Vital Signs Vital Signs Vital Signs: 12/17/24 18:33 Temperature 97.7 F L Temperature Source Temporal Pulse Rate 60 Respiratory Rate 16 Blood Pressure 110/68 Blood Pressure Mean 82 Blood Pressure Source Monitor Blood Pressure Position Semi-Fowlers Blood Pressure Location Right Arm Pulse Ox 97 Oxygen Delivery Method Nasal Cannula Oxygen Flow Rate (L/min) 2 Weight Weight: 57.833 kg Body Mass Index (BMI) 19.3 Physical Exam Const alert General Appearance: cooperative HEENT normocephalic Eyes PERRL and EOMs intact bilaterally Neck supple, no JVD and no carotid bruits Resp normal respiratory effort, normal air movement and clear to auscultation bilaterally Cardio regular rate and regular rhythm GI normal to inspection, nondistended, normoactive bowel sounds, non-tender and non-distended Extremity normal capillary refill Extremity Narrative: Left upper extremity sling. General Extremity: Negative for edema Skin no rashes or lesions noted General Skin Exam: no breakdown Psych affect normal Appearance: appropriate Results Lab / Micro Data 12/18/24 05:15 12/18/24 05:15 Assessment & Plan Assessment/Plan (1) Debility: (2) Bright red blood per rectum: (3) Angiodysplasia of stomach: (4) Upper gastrointestinal bleed: (5) Acute blood loss anemia: (6) Bradycardia: (7) Status post placement of cardiac pacemaker: (8) Orthostatic hypotension: (9) Acute on chronic heart failure with preserved ejection fraction (HFpEF): (10) Atrial fibrillation: (11) Coronary artery disease: (12) GERD (gastroesophageal reflux disease): (13) Hypokalemia: (14) BPH (benign prostatic hyperplasia): (15) Hypothyroidism: (16) Hypomagnesemia: (17) Insomnia: (18) Leg cramps: PLAN: Plan 84 year old male with below past medical history hospitalized for upper gi bleeding 2/2 gastric angiodysplasia, complicated by nstemi, orthostatic hypotension, acute on chronic hfpef, acute respiratory failure with hypoxia, bradycardia requiring pacemaker implantation, admitted to TCU with debility, here for rehabilitation, strengthening, prior to discharge home alone. Debility - PT/OT. Pain - Tylenol 1000mg q6 prn pain (1-10). Bowel - senna/colace 2 tablets bid. Adult immunization - Administer pneumonia vaccine, covid vaccine, flu vaccine as appropriate. DVT prophylaxis - Hold, UGIB, anemia. COPD - Albuterol 2.5mg q2 prn. Iron deficiency anemia - Ferrous sulfate 325mg qhs, Vitamin C 500mg bid. Hyperlipidemia - Atorvastatin 40mg qhs. Vitamin D deficiency - D3 25mcg qhs. BPH - Finasteirde 5mg daily, Tamsulosin 0.4mg bid. Chronic HFpEF - Furosemide 80mg bidlx. Coronary artery disease - Ranexa 500mg bid, NT g0.4mg sl q5m prn. Hypothyroidism - Levothyroxine 50mcg daily. GERD - Pantoprazole 20mg daily, Mylanta 2 15mL po q4 prn. Insomnia - Melatonin 3mg qhs, Trazodone 25mg qhs, stable chronic group home use, GDR not recommended. Skin irritation - Calmoseptine topical tid rpn. Hypokalemia - KCL 40meq bidcm. ALVARADO - PAP therapy naps, qhs.
[2024-12-17 20:00] VITALS: PULSE 60; RESP 16; O2SAT 92
[2024-12-17] MEDS: Ranolazine 500 MG Tablet PO (22:22)
[2024-12-17] MEDS: Atorvastatin Calcium 40 MG Tablet PO (22:22)
[2024-12-17] MEDS: Senna/Docusate Sodium 1 Tablet 2 TABLET PO (22:22)
[2024-12-17] MEDS: Tamsulosin HCl 0.4 MG Capsule PO (22:24)
[2024-12-17] MEDS: traZODone 50 MG Tablet 25 MG PO (22:24)
[2024-12-17] MEDS: Cholecalciferol (VIT D3) 25 MCG TABLET (1,000 UNITS) PO (22:24)
[2024-12-17] MEDS: Ferrous Sulfate 325 MG Tablet PO (22:24)
[2024-12-17 23:25] VITALS: PULSE 60; RESP 12; RESP 24; O2SAT 99
[2024-12-18] VITALS (10 sets, daily range): BP systolic 102–116; BP diastolic 62–70; PULSE 60–86; RESP 12–22; TEMP 36.6–37.2; O2SAT 90–99; BMI 19.4
[2024-12-18] MEDS: Levothyroxine 50 MCG Tablet PO (05:03)
[2024-12-18] MEDS: Furosemide 80 MG Tablet PO ×2 (05:03→13:18)
[2024-12-18 05:51] LABS: Absolute Lymphocyte Count 0.84 X10^3/uL (0.83-4.51); Basophil# 0.05 X10^3/uL; Basophil% 0.4 % (0-1); Eosinophils% 1.5 % (0-5); Hematocrit 24.4 % (40-54); Hemoglobin 8.2 g/dL (13.0-16.5); Lymphocyte # 0.84 X10^3/ul (0.83-4.51); Lymphocyte % 6.4 % (19-41); Mean Corp Hgb Conc 33.6 g/dL (32-36); Mean Corpuscular Hgb 37.6 pg (27.0-32.0); Mean Corpuscular Volume 111.9 fL (80-94); Monocyte# 0.91 X10^3/uL; Monocyte% 6.9 % (0-10); NRBC Flagged by Analyzer 0 % (0-5); Neutrophil # 10.95 X10^3/uL (2.7-7.7); Neutrophil % 83.4 % (47-70); Platelet Count 298 K/mm3 (150-450); RBC Distribution Width CV 14.6 % (11.6-14.6); Red Blood Count 2.18 M/mm3 (4.6-6.2); White Blood Count 13.1 K/mm3 (4.4-11.0)
[2024-12-18 06:23] LABS: Anion Gap 11 (5-15); BUN 46 mg/dL (4-19); BUN/Creat Ratio 16.5 RATIO (10-20); Calcium,Total 8.3 mg/dL (7.6-11.0); Carbon Dioxide 31.6 mmol/L (21.0-32.0); Chloride 96 mmol/L (98-108); Creatinine, Serum 2.77 mg/dL (0.70-1.20); EST Glomerular Filtration Rate 22 (>60); Estimated Creatinine Clearance 16.53 ml/min (50-250); Glucose 91 mg/dL (70-99); Potassium 4.4 mmol/L (3.3-5.1); Sodium Level 138 mmol/L (133-145)
[2024-12-18] MEDS: Potassium Chloride Oral Tablet 20 MEQ 40 MEQ PO ×2 (09:05→17:45)
[2024-12-18] MEDS: Ascorbic Acid 500 MG Tablet PO ×2 (09:05→17:46)
[2024-12-18] MEDS: Tamsulosin HCl 0.4 MG Capsule PO ×2 (09:05→20:19)
[2024-12-18] MEDS: Pantoprazole Sodium 20 MG Tablet PO (09:05)
[2024-12-18] MEDS: Finasteride 5 MG Tablet PO (09:05)
[2024-12-18] MEDS: Ranolazine 500 MG Tablet PO ×2 (09:05→20:18)
[2024-12-18] MEDS: Senna/Docusate Sodium 1 Tablet 2 TABLET PO ×2 (09:05→20:19)
[2024-12-18] MEDS: Tuberculin,Purif.prot.deriv. 50 TU/ML Vial 0.1 ML ID (09:15)
[2024-12-18] MEDS: 0.9% Saline Lock 10 ML Syringe IV (13:18)
--- NOTE | 2024-12-18 13:58 | PHA.CONS_ITS ---
TCU RX Drug Regimen Review Subjective/Objective Subjective/Objective Subjective: [TCU admission note for 84 year old male. Admitted to TCU on 12/17/2024 for rehabilitation, strengthening, prior to discharge home alone. ] Objective: Allergies diclofenac Allergy (Verified 12/04/24 07:22) rash prednisone Allergy (Verified 12/04/24 07:22) Rash Current Medications Generic Name Dose Route Start Last Admin Trade Name Freq PRN Reason Stop Dose Admin Acetaminophen 1,000 mg 12/17/24 20:09 Acetaminophen 500 Mg Tablet PO Q6H PRN PRN Pain Score 1-10 Al Hydroxide/Mg Hydroxide 15 ml 12/17/24 18:36 Mag Hydrox/Al Hydrox/Simeth 30 Ml Udc PO Q4H PRN PRN Indigestion Albuterol Sulfate 2.5 mg 12/17/24 18:36 Albuterol 2.5 Mg/3 Ml Vial.Neb. INHALATION Q2H PRN PRN SOB &/OR WHEEZING Ascorbic Acid 500 mg 12/18/24 08:00 12/18/24 09:05 Ascorbic Acid 500 Mg Tablet PO 500 mg BIDCM ILEANA Administration Atorvastatin Calcium 40 mg 12/17/24 22:00 12/17/24 22:22 Atorvastatin Calcium 40 Mg Tablet PO 40 mg QHS ILEANA Administration Cholecalciferol 25 mcg 12/17/24 22:00 12/17/24 22:24 Cholecalciferol (Vit D3) 25 Mcg Tablet (1,000 Units) PO 25 mcg QHS ILEANA Administration Ferrous Sulfate 325 mg 12/17/24 22:00 12/17/24 22:24 Ferrous Sulfate 325 Mg Tablet PO 325 mg QHS ILEANA Administration Finasteride 5 mg 12/18/24 10:00 12/18/24 09:05 Finasteride 5 Mg Tablet PO 5 mg DAILY ILEANA Administration Furosemide 80 mg 12/18/24 06:00 12/18/24 13:18 Furosemide 80 Mg Tablet PO 80 mg BIDLX ILEANA Administration Protocol Levothyroxine Sodium 50 mcg 12/18/24 06:00 12/18/24 05:03 Levothyroxine 50 Mcg Tablet PO 50 mcg DAILY@0600 ILEANA Administration Melatonin 3 mg 12/17/24 18:36 Melatonin 3 Mg Tablet PO QHS PRN PRN Insomnia Menthol 1 applic 12/17/24 18:36 Menthol 226.8 Gm Jar TOPICAL TID PRN PRN Arthritis Pain 1-10 Nitroglycerin 0.4 mg 12/17/24 19:02 Nitroglycerin (Inpatient Use) 0.4 Mg Tab.Subl SL Q5M PRN CARDIAC/CHEST PAIN Pantoprazole Sodium 20 mg 12/18/24 10:00 12/18/24 09:05 Pantoprazole Sodium 20 Mg Tablet PO 20 mg DAILY ILEANA Administration Potassium Chloride 40 meq 12/18/24 08:00 12/18/24 09:05 Potassium Chloride Oral Tablet 20 Meq PO 40 meq BIDCM ILEANA Administration Ranolazine 500 mg 12/17/24 22:00 12/18/24 09:05 Ranolazine 500 Mg Tablet PO 500 mg BID ILEANA Administration Senna/Docusate Sodium 2 tablet 12/17/24 22:00 12/18/24 09:05 Senna/Docusate Sodium 1 Tablet PO 2 tablet BID ILEANA Administration Sodium Chloride 10 - 40 ml 12/18/24 04:57 12/18/24 13:18 0.9% Saline Lock 10 Ml Syringe IV 10 ml UD PRN Administration SALINE FLUSH Tamsulosin HCl 0.4 mg 12/17/24 22:00 12/18/24 09:05 Tamsulosin Hcl 0.4 Mg Capsule PO 0.4 mg BID ILEANA Administration Trazodone HCl 25 mg 12/17/24 22:00 12/17/24 22:24 Trazodone 50 Mg Tablet PO 25 mg QHS ILEANA Administration Tuberculin PPD 0.1 ml 12/25/24 10:00 Tuberculin,Purif.Prot.Deriv. 50 Tu/Ml Vial ID 12/25/24 10:01 X1 ONE Problem List Leg cramps (Acute) Insomnia (Acute) Hypomagnesemia (Acute) Orthostatic hypotension (Acute) Status post placement of cardiac pacemaker (Acute) Upper gastrointestinal bleed (Acute) Angiodysplasia of stomach (Acute) Bright red blood per rectum (Acute) Atrial fibrillation (Chronic) Bradycardia (Acute) Hypokalemia (Acute) GERD (gastroesophageal reflux disease) (Acute) Coronary artery disease (Chronic) BPH (benign prostatic hyperplasia) (Acute) Debility (Acute) Hypothyroidism (Acute) Vital Signs Temp Pulse Resp BP Pulse Ox O2 Del Method O2 Flow Rate 98.9 F 84 18 113/68 96 Room Air 2 12/18/24 08:00 12/18/24 09:58 12/18/24 09:58 12/18/24 08:00 12/18/24 10:00 12/18/24 09:58 12/18/24 13:02 FiO2 30 12/18/24 07:36 Oxygen Flow Rate (L/min) 2 Oxygen Delivery Method Room Air Weight: 57.969 kg Body Mass Index (BMI) 19.4 Sodium 138 mmol/L (133-145) 12/18/24 05:15 Potassium 4.4 mmol/L (3.3-5.1) 12/18/24 05:15 Chloride 96 mmol/L (98-108) L 12/18/24 05:15 Carbon Dioxide 31.6 mmol/L (21.0-32.0) 12/18/24 05:15 Anion Gap 11 (5-15) 12/18/24 05:15 BUN 46 mg/dL (4-19) H 12/18/24 05:15 Creatinine 2.77 mg/dL (0.70-1.20) H 12/18/24 05:15 Est GFR (MDRD) Non-Af 22 (>60) L 12/18/24 05:15 BUN/Creatinine Ratio 16.5 RATIO (10-20) 12/18/24 05:15 Glucose 91 mg/dL (70-99) 12/18/24 05:15 Assessment/Plan: 1) Pain: Acetaminophen 1000mg po q6h prn for pain 1-10. Please continue to monitor for signs/symptoms of increased pain. PRN Note: patient has had zero usage to date 2) Bowel: Senna/Docusate 2 tablets po bid. Please continue to monitor for signs/symptoms of constipation/diarrhea 3) COPD: Albuterol nebulizers 2.5mg q2h prn shortness of breath/wheezing. Please continue to monitor for shortness of breath/wheezing. Albuterol can cause palpitations. Please monitor for palpitations with increased use PRN Note: patient has had zero use to date 4) hypothyroidism: Levothyroxine 50mcg po daily. Levothyroxine should be administered on an empty stomach, and with a full glass of water. The most recent TSH level was 2.72 on 12/06/24. Please consider a yearly TSH level while patient is on levothyroxine 5) Hypokalemia: Potassium Chloride 40meq po bid with food. Please ensure that potassium is administered with a full glass of water, and with food or immediately after food to minimize gi irritation. The most recent K+ level was 4.4 on 12/18/24. Please continue to monitor K+. *6) Skin Irritation: Calmoseptine tid prn. Calmoseptine is not listed in the current medication list. There is a current order for Menthol (Rui Zimmerman) topically tid prn for arthritis pain. 7) Hyperlipidemia: Atorvastatin 40mg po qhs. Most recent AST was 18, and ALT was 24. Both were from 08/2024. Most recent Cholesterol level was 104 from 12/10/24. Please continue to monitor LFT and Cholesterol level. Please continue to monitor for signs/symptoms of muscle/joint pain 8) Iron Deficiency Anemia: Ferrous Sulfate 325mg po qhs, Ascorbic Acid 500mg po bid. Last Iron level was 168 on 08/30/24. Please continue to monitor. Last Hgb was 8.2 and last Hct was 24.4 on 12/18/24. Please continue to monitor. 10) Chronic HFpEF: Furosemide 80mg po bid. Last 3 BP readings are 113/68, 116/68, 116/68. Please continue to monitor patients blood pressure and for orthostatic hypotension. Last Na was 138, K+ was 4.4, Cl was 96. Please continue to monitor electrolytes while pt is on furosemide. *11) Vitamin D Deficiency: Cholecalciferol 25mcg po qhs. The most recent vitamin D level in the chart was 16.0 from 04/23/22. Please consider a yearly vitamin D level while the patient is taking cholecalciferol. Thanks 12) BPH: Finasteride 5mg po daily, Tamsulosin 0.4mg po bid. Please continue to monitor for signs/symptoms of enlarged prostate/urinary retention. Please continue to monitor for orthostatic hypotension. Last PSA was 0.55 on 08/17/24. Please continue to monitor. 13) GERD: Pantoprazole 20mg po daily, Mylanta II 15ml po q4h prn. Please continue to monitor for signs/symptoms of GI distress and GI bleed. PRN Note: there has been zero use of Mylanta II to date 14) CAD: Ranexa 500mg po bid, NTG 0.4mg sl q5m prn. Pt had a ECG on 12/10/24 and is being followed by cardiology for post pacemaker implant on 12/12/24. Please continue to monitor for signs/symptoms of chest pain. Assessment/Plan for indications treated with psychotropic medications: 1) Insomnia: Melatonin 3mg po qhs, Trazodone 25mg po qhs. Per provider note on 12/18/24, trazodone is stable chronic penitentiary use. GDR not recommended at this time. Monitor for efficacy including resident symptoms, behaviors and indications of distress. Monitor for insomnia/restlessness Monitor for tolerability including mental status, cognition, excessive sleepiness, withdrawal or decreased participation in activities and decline in physical functioning. Monitor for drowsiness, dizziness or confusion, dry mouth, constipation, symptoms of serotonin syndrome (including agitation, confusion, hyperreflexia, rigidity/myoclonus, tremor, tachycardia, tachypnea), suicidal thoughts or behaviors (Boxed Warning). Monitor HR (can cause bradycardia or tachycardia). HR range since admission = 113/68 Monitor for orthostatic hypotension, including postural dizziness, syncope or falls. Check orthostatic vital signs if suspicion of orthostasis. Maximize use of nonpharmacologic/behavioral interventions to facilitate dose reduction or discontinuation as appropriate. Please evaluate the appropriateness of GDR unless contraindicated. If appropriate, GDR should be attempted in 2 separate quarters within the first year of use or admission to TCU. If GDR attempted, monitor resident symptoms/behaviors. Medical chart and medication regimen reviewed. The following medication irregularities or issues were identified: 6) Skin Irritation: Calmoseptine tid prn. Calmoseptine is not listed in the current medication list. There is a current order for Menthol (Rui Zimmerman) topically tid prn for arthritis pain. 11) Vitamin D Deficiency: Cholecalciferol 25mcg po qhs. The most recent vitamin D level in the chart was 16.0 from 04/23/22. Please consider a yearly vitamin D level while the patient is taking cholecalciferol. Thanks Date Date of Note: 12/18/24
--- NOTE | 2024-12-18 16:19 | CASEMGMT ---
Social Work SW met with patient to complete initial assessment. Pt known to this worker from previous stay. Verified contacts and code status as DNR-CCA, WITH intubation. SW requested pt provide copies of advance directives. is recommending a sleep study for pt at DC. SW to assist with coordinating. Pt's goal is to return home alone at DC. SW will continue to follow for DC planning. Roya Sarabia HEALTH CLINICIAN [employer]ER [employer]
--- NOTE | 2024-12-18 16:28 | CHAPLAIN ---
Type of Pastoral Visit ___ Initial Visit _x__ Follow-up Visit ___ On-call Visit ___ General Patient Visit ___ Spiritual Assessment ___ Family Conference ___ Bereavement ___ Rapid Response ___ Code Blue ___ Other (describe below) Pastoral Care Referral From _x__ Patient ___ Family ___ Nurse ___ Physician ___ Outdoor Advertising Leasing Agent ___ Relationship Advisor ___ Other (describe below) Sacrament/Intervention _x__ Active listening ___ Anointing ___ Temple ___ Bereavement ___ Communion _x__ Jerica exploration ___ _x__ Life review _x__ Prayer ___ Reconciliation ___ Sacrament of Sick _x__ Supportive presence ___ Wedding ___ Other (describe below) Pastoral Comments
[2024-12-18] MEDS: Acetaminophen 500 MG Tablet 1000 MG PO (20:17)
[2024-12-18] MEDS: traZODone 50 MG Tablet 25 MG PO (20:19)
[2024-12-18] MEDS: Cholecalciferol (VIT D3) 25 MCG TABLET (1,000 UNITS) PO (20:20)
[2024-12-18] MEDS: Atorvastatin Calcium 40 MG Tablet PO (20:20)
[2024-12-18] MEDS: Ferrous Sulfate 325 MG Tablet PO (20:20)
[2024-12-18] MEDS: MENTHOL 226.8 GM JAR 1 APPLIC TOPICAL (23:09)
[2024-12-19 01:00] VITALS: O2SAT 94
[2024-12-19 06:00] VITALS: BP 122/81; PULSE 61; RESP 16
[2024-12-19] MEDS: Levothyroxine 50 MCG Tablet PO (06:19)
[2024-12-19] MEDS: Furosemide 80 MG Tablet PO ×2 (06:19→15:02)
[2024-12-19] MEDS: 0.9% Saline Lock 10 ML Syringe IV ×2 (06:27→17:10)
[2024-12-19 07:13] VITALS: O2SAT 98
[2024-12-19] MEDS: Ascorbic Acid 500 MG Tablet PO ×2 (08:58→17:10)
[2024-12-19] MEDS: Tamsulosin HCl 0.4 MG Capsule PO ×2 (08:58→21:30)
[2024-12-19] MEDS: Ranolazine 500 MG Tablet PO ×2 (08:58→21:30)
[2024-12-19] MEDS: Finasteride 5 MG Tablet PO (08:58)
[2024-12-19] MEDS: Potassium Chloride Oral Tablet 20 MEQ 40 MEQ PO ×2 (08:58→17:10)
[2024-12-19] MEDS: Pantoprazole Sodium 20 MG Tablet PO (08:58)
[2024-12-19] MEDS: Senna/Docusate Sodium 1 Tablet 2 TABLET PO ×2 (08:59→21:30)
--- NOTE | 2024-12-19 11:34 | MDS.RN ---
Route Clerk Note; Activity Asset: Oscar Mcgregor has returned to TCU for more therapy. He remains independent in his choice of daily activities and prefers in room over group. 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 Staff will remind him of weekly activities and respect his right to say no.
[2024-12-19 12:36] VITALS: BP 117/81; PULSE 66; RESP 18; TEMP 36.5; O2SAT 99
--- NOTE | 2024-12-19 19:03 | NURSING ---
Addendum entered by Meryl Romo 12/21/24 10:49: Talked with Harriet in the heart group to follow-up, she says she will check into the monitor and call back today or Tuesday. Original Note: F/U with Dr. Molina today. He is supposed to have monitor for pacemaker that was set up while on PCU. Monitor not in room on TCU and PCU contacted and they state it is not there. Dr. Molina office called and message left. Awaiting call back.
[2024-12-19] MEDS: Mag Hydrox/Al Hydrox/Simeth 30 ML UDC 15 ML PO (19:07)
[2024-12-19] MEDS: Acetaminophen 500 MG Tablet 1000 MG PO (19:07)
[2024-12-19] MEDS: Cholecalciferol (VIT D3) 25 MCG TABLET (1,000 UNITS) PO (21:30)
[2024-12-19] MEDS: Atorvastatin Calcium 40 MG Tablet PO (21:30)
[2024-12-19] MEDS: Ferrous Sulfate 325 MG Tablet PO (21:31)
[2024-12-19] MEDS: traZODone 50 MG Tablet 25 MG PO (21:31)
[2024-12-19 22:34] VITALS: PULSE 68; RESP 12; RESP 15; O2SAT 98
[2024-12-19 23:00] VITALS: PULSE 65; RESP 16; O2SAT 98
[2024-12-20] MEDS: Furosemide 80 MG Tablet PO ×2 (06:02→14:49)
[2024-12-20] MEDS: Levothyroxine 50 MCG Tablet PO (06:02)
[2024-12-20 06:55] LABS: Vitamin D,25 Hydroxy 34.9 ng/mL (30-100)
[2024-12-20 09:03] VITALS: BP 124/84; PULSE 90; RESP 17; TEMP 36.9; O2SAT 99
[2024-12-20] MEDS: Potassium Chloride Oral Tablet 20 MEQ 40 MEQ PO ×2 (09:35→18:41)
[2024-12-20] MEDS: Ranolazine 500 MG Tablet PO ×2 (09:36→23:15)
[2024-12-20] MEDS: Senna/Docusate Sodium 1 Tablet 2 TABLET PO ×2 (09:36→23:14)
[2024-12-20] MEDS: Pantoprazole Sodium 20 MG Tablet PO (09:36)
[2024-12-20] MEDS: Ascorbic Acid 500 MG Tablet PO ×2 (09:36→18:41)
[2024-12-20] MEDS: Finasteride 5 MG Tablet PO (09:36)
[2024-12-20] MEDS: Tamsulosin HCl 0.4 MG Capsule PO ×2 (09:36→23:14)
[2024-12-20 14:46] VITALS: BP 103/59; PULSE 85
--- NOTE | 2024-12-20 15:02 | EX.PACEMAKER ---
Pacemaker Procedure Note Pacemaker Procedure Note Placement of a temporary transvenous pacemaker. Indication symptomatic complete heart block. The patient was brought to cardiac catheterization lab in the postabsorptive nonsedated state. Informed consent was obtained. The right femoral area was prepped and draped in the usual sterile fashion. A 7 [place]ian venous sheath was placed after appropriate anesthesia with lidocaine. Under fluoroscopic control a 5 [place]ian temporary pacemaker wire was then floated with the balloon tip to the right ventricular body and placed appropriately with ventricular capture and sensing. The pacemaker was sutured in place the sheath was sutured in place and appropriately covered and the patient was transferred back in stable condition to the intensive care unit. Conclusion: Successful placement of a temporary transvenous pacemaker.
--- NOTE | 2024-12-20 16:11 | CASEMGMT ---
Social Work SW completed BIMS () and PHQ-2 () for MDS assessment. Roya Sarabia SEARCHLIGHT OPERATOR STAFF RADIATION THERAPIST
[2024-12-20] MEDS: 0.9% Saline Lock 10 ML Syringe IV (18:42)
[2024-12-20 22:40] VITALS: PULSE 78; RESP 12; RESP 24; O2SAT 99
[2024-12-20] MEDS: Atorvastatin Calcium 40 MG Tablet PO (23:14)
[2024-12-20] MEDS: traZODone 50 MG Tablet 25 MG PO (23:15)
[2024-12-20] MEDS: Ferrous Sulfate 325 MG Tablet PO (23:15)
[2024-12-20] MEDS: Cholecalciferol (VIT D3) 25 MCG TABLET (1,000 UNITS) PO (23:15)
[2024-12-21] MEDS: MELATONIN 3 MG TABLET PO ×2 (00:53→22:03)
[2024-12-21] MEDS: Mag Hydrox/Al Hydrox/Simeth 30 ML UDC 15 ML PO (00:53)
[2024-12-21] MEDS: MENTHOL 226.8 GM JAR 1 APPLIC TOPICAL ×2 (01:35→22:03)
[2024-12-21 03:50] VITALS: PULSE 87; RESP 12; RESP 26; O2SAT 98
[2024-12-21] MEDS: Furosemide 80 MG Tablet PO (04:56)
[2024-12-21] MEDS: Levothyroxine 50 MCG Tablet PO (04:56)
[2024-12-21 08:20] VITALS: O2SAT 93
[2024-12-21] MEDS: Tamsulosin HCl 0.4 MG Capsule PO ×2 (09:29→22:04)
[2024-12-21] MEDS: Ascorbic Acid 500 MG Tablet PO ×2 (09:29→17:47)
[2024-12-21] MEDS: Ranolazine 500 MG Tablet PO ×2 (09:29→22:05)
[2024-12-21] MEDS: Finasteride 5 MG Tablet PO (09:29)
[2024-12-21] MEDS: Potassium Chloride Oral Tablet 20 MEQ 40 MEQ PO ×2 (09:29→17:47)
[2024-12-21] MEDS: Pantoprazole Sodium 20 MG Tablet PO (09:29)
[2024-12-21] MEDS: Senna/Docusate Sodium 1 Tablet 2 TABLET PO ×2 (09:30→22:04)
[2024-12-21 09:49] VITALS: O2SAT 95
[2024-12-21 10:00] VITALS: BP 103/64; PULSE 52; RESP 20; TEMP 36.4; O2SAT 100
[2024-12-21] MEDS: Loratadine 10 MG Tablet PO (14:52)
[2024-12-21] MEDS: 0.9% Saline Lock 10 ML Syringe IV (17:53)
[2024-12-21] MEDS: traZODone 50 MG Tablet 25 MG PO (22:03)
[2024-12-21] MEDS: Ferrous Sulfate 325 MG Tablet PO (22:04)
[2024-12-21] MEDS: Atorvastatin Calcium 40 MG Tablet PO (22:04)
[2024-12-21] MEDS: Cholecalciferol (VIT D3) 25 MCG TABLET (1,000 UNITS) PO (22:06)
[2024-12-21 22:23] VITALS: PULSE 60; RESP 16; O2SAT 98
[2024-12-21] MEDS: Acetaminophen 500 MG Tablet 1000 MG PO (23:59)
[2024-12-22] MEDS: Levothyroxine 50 MCG Tablet PO (06:24)
[2024-12-22 06:31] VITALS: RESP 16
[2024-12-22] MEDS: Potassium Chloride Oral Tablet 20 MEQ 40 MEQ PO ×2 (08:36→17:45)
[2024-12-22] MEDS: Tamsulosin HCl 0.4 MG Capsule PO ×2 (08:37→20:39)
[2024-12-22] MEDS: Furosemide 80 MG Tablet PO (08:37)
[2024-12-22] MEDS: Ascorbic Acid 500 MG Tablet PO ×2 (08:37→17:45)
[2024-12-22] MEDS: Finasteride 5 MG Tablet PO (08:38)
[2024-12-22] MEDS: Senna/Docusate Sodium 1 Tablet 2 TABLET PO (08:38)
[2024-12-22] MEDS: Pantoprazole Sodium 20 MG Tablet PO (08:38)
[2024-12-22] MEDS: Ranolazine 500 MG Tablet PO ×2 (08:38→20:38)
[2024-12-22 10:00] VITALS: PULSE 79; RESP 18; TEMP 36.6; O2SAT 100
--- NOTE | 2024-12-22 14:31 | NURSING ---
Patient's sister comes to visit today and states he has a package form the [facility], which sounds like it will be his pacemaker monitor. Patient's sister states she will plan to bring it in.
[2024-12-22] MEDS: Mag Hydrox/Al Hydrox/Simeth 30 ML UDC 15 ML PO (15:08)
--- NOTE | 2024-12-22 17:04 | NURSING ---
Patient 100% on 2L this AM. Weaned O2 to 1L and patient walked to bathroom and did not drop below 94%. Placed patient on room air while laying in bed and dropped to 86%. Placed back on 1L for rest of day.
[2024-12-22] MEDS: traZODone 50 MG Tablet 25 MG PO (20:38)
[2024-12-22] MEDS: Atorvastatin Calcium 40 MG Tablet PO (20:39)
[2024-12-22] MEDS: Cholecalciferol (VIT D3) 25 MCG TABLET (1,000 UNITS) PO (20:39)
[2024-12-22] MEDS: Ferrous Sulfate 325 MG Tablet PO (20:39)
[2024-12-22 20:45] VITALS: BP 106/64; PULSE 56; RESP 16
[2024-12-22 23:09] VITALS: PULSE 64; RESP 12; RESP 24; O2SAT 97
--- NOTE | 2024-12-22 23:10 | CPS ---
decreased fio2 on bipap to 25% - sat 97%
[2024-12-23] MEDS: MENTHOL 226.8 GM JAR 1 APPLIC TOPICAL ×2 (00:19→20:15)
[2024-12-23] MEDS: Levothyroxine 50 MCG Tablet PO (05:12)
[2024-12-23] MEDS: 0.9% Saline Lock 10 ML Syringe IV ×3 (05:13→15:45)
[2024-12-23 06:35] VITALS: O2SAT 93
[2024-12-23] MEDS: Mag Hydrox/Al Hydrox/Simeth 30 ML UDC 15 ML PO ×2 (07:35→21:55)
[2024-12-23 09:00] VITALS: BP 103/66; PULSE 95; RESP 18; TEMP 36.3; O2SAT 99
[2024-12-23] MEDS: Acetaminophen 500 MG Tablet 1000 MG PO (09:03)
[2024-12-23 11:20] VITALS: BP 116/80; PULSE 62
[2024-12-23] MEDS: Potassium Chloride Oral Tablet 20 MEQ 40 MEQ PO ×2 (11:22→18:05)
[2024-12-23] MEDS: Loratadine 10 MG Tablet PO (11:23)
[2024-12-23] MEDS: Tamsulosin HCl 0.4 MG Capsule PO ×2 (11:23→20:21)
[2024-12-23] MEDS: Ranolazine 500 MG Tablet PO ×2 (11:24→20:21)
[2024-12-23] MEDS: Pantoprazole Sodium 20 MG Tablet PO (11:24)
[2024-12-23] MEDS: Furosemide 80 MG Tablet PO (11:24)
[2024-12-23] MEDS: Finasteride 5 MG Tablet PO (11:24)
[2024-12-23 15:20] VITALS: BP 114/72; PULSE 68
--- NOTE | 2024-12-23 15:20 | NURSING ---
Patient c/o dizziness and nausea this shift. Vitals WNL. Call placed to Dr. Samuel with update. Reviewed patient's weights while on TCU and prior to admission to TCU. New order obtained to change Lasix to 40mg PO daily, 500ml IV bolus, CBC w/ diff, BMP, and BNP for tomorrow. VORB.
[2024-12-23] MEDS: 0.9% Normal Saline (500mL Bag) 500 ML 999 ML IV (15:44)
[2024-12-23] MEDS: Ascorbic Acid 500 MG Tablet PO (18:05)
[2024-12-23] MEDS: Cholecalciferol (VIT D3) 25 MCG TABLET (1,000 UNITS) PO (20:20)
[2024-12-23] MEDS: Atorvastatin Calcium 40 MG Tablet PO (20:20)
[2024-12-23] MEDS: traZODone 50 MG Tablet 25 MG PO (20:21)
[2024-12-23] MEDS: Ferrous Sulfate 325 MG Tablet PO (20:21)
[2024-12-23 20:29] VITALS: BP 120/76; PULSE 58; RESP 18
[2024-12-24] VITALS: BP 122/69; PULSE 60; RESP 18; O2SAT 91
[2024-12-24 00:05] VITALS: PULSE 60; RESP 18
--- NOTE | 2024-12-24 00:15 | NURSING ---
Declines Bipap despite education x3 attempts, not tonight, O2 on at 2LPM via NC. No distress observed or reported. Call light and personal items within reach.
[2024-12-24] MEDS: Levothyroxine 50 MCG Tablet PO (05:06)
[2024-12-24 05:52] LABS: Absolute Lymphocyte Count 0.75 X10^3/uL (0.83-4.51); Absolute Neutrophil Count 12.2 X10^3/uL (2.0-7.7); Basophil% 0.7 % (0-1); Eosinophil# 0.14 X10^3/uL; Hematocrit 27.3 % (40-54); Hemoglobin 8.9 g/dL (13.0-16.5); Lymphocyte # 0.75 X10^3/ul (0.83-4.51); Lymphocyte % 5.2 % (19-41); Mean Corp Hgb Conc 32.6 g/dL (32-36); Mean Corpuscular Volume 116.7 fL (80-94); Mean Platelet Vol. 10.4 fl (6.2-12.0); Monocyte# 0.92 X10^3/uL; Monocyte% 6.4 % (0-10); NRBC Flagged by Analyzer 0 % (0-5); Neutrophil # 12.22 X10^3/uL (2.7-7.7); Neutrophil % 85.3 % (47-70); Platelet Count 335 K/mm3 (150-450); RBC Distribution Width CV 14.6 % (11.6-14.6); RBC Distribution Width SD 62.2 fl (35.1-43.9); Red Blood Count 2.34 M/mm3 (4.6-6.2); White Blood Count 14.3 K/mm3 (4.4-11.0)
[2024-12-24 06:10] LABS: Anion Gap 10 (5-15); BUN 46 mg/dL (4-19); BUN/Creat Ratio 14.9 RATIO (10-20); Calcium,Total 8.9 mg/dL (7.6-11.0); Carbon Dioxide 26.9 mmol/L (21.0-32.0); Chloride 103 mmol/L (98-108); Creatinine, Serum 3.08 mg/dL (0.70-1.20); EST Glomerular Filtration Rate 19 (>60); Glucose 98 mg/dL (70-99); Potassium 5.6 mmol/L (3.3-5.1); Pro- Brain NATRIURETIC PEPTIDE 31223 pg/mL (<=1800); Sodium Level 140 mmol/L (133-145)
--- NOTE | 2024-12-24 06:42 | NURSING ---
Patient frequently presents as anxious regarding health status, states I'm just nervous I will get real sick again, 1:1 provided, feelings validated, written communication left for Dr. Samuel.
[2024-12-24 08:06] VITALS: BP 131/76; PULSE 96; RESP 17; TEMP 36.2; O2SAT 98
[2024-12-24] MEDS: busPIRone 5 MG Tablet PO ×2 (08:13→21:30)
[2024-12-24] MEDS: Tamsulosin HCl 0.4 MG Capsule PO ×2 (08:13→21:30)
[2024-12-24] MEDS: Ascorbic Acid 500 MG Tablet PO ×2 (08:13→16:29)
[2024-12-24] MEDS: Senna/Docusate Sodium 1 Tablet 2 TABLET PO ×2 (08:14→21:30)
[2024-12-24] MEDS: Ranolazine 500 MG Tablet PO ×2 (08:14→21:30)
[2024-12-24] MEDS: Sodium Polystyrene Sulfonate 15 GM/60 ML UDC 30 GM PO (08:14)
[2024-12-24] MEDS: Furosemide 40 MG Tablet PO (08:14)
[2024-12-24] MEDS: Pantoprazole Sodium 20 MG Tablet PO (08:14)
[2024-12-24] MEDS: Finasteride 5 MG Tablet PO (08:14)
[2024-12-24 08:33] VITALS: O2SAT 95
--- NOTE | 2024-12-24 08:52 | NURSING ---
Comic Artist Note; MDS for 12/24/2024 Complete
--- NOTE | 2024-12-24 09:53 | NURSING ---
Offered covid vaccine, VIS provided. Resident declines at this time.
[2024-12-24] MEDS: Mag Hydrox/Al Hydrox/Simeth 30 ML UDC 15 ML PO (10:19)
[2024-12-24] MEDS: 0.9% Saline Lock 10 ML Syringe IV ×2 (10:19→21:30)
[2024-12-24] MEDS: traZODone 50 MG Tablet 25 MG PO (21:30)
[2024-12-24] MEDS: Atorvastatin Calcium 40 MG Tablet PO (21:30)
[2024-12-24] MEDS: Ferrous Sulfate 325 MG Tablet PO (21:30)
[2024-12-24] MEDS: Cholecalciferol (VIT D3) 25 MCG TABLET (1,000 UNITS) PO (21:31)
[2024-12-24] MEDS: MELATONIN 3 MG TABLET PO (21:38)
[2024-12-25] MEDS: Levothyroxine 50 MCG Tablet PO (05:16)
[2024-12-25 06:02] LABS: Absolute Lymphocyte Count 0.71 X10^3/uL (0.83-4.51); Absolute Neutrophil Count 8.4 X10^3/uL (2.0-7.7); Basophil# 0.08 X10^3/uL; Basophil% 0.8 % (0-1); Eosinophil# 0.16 X10^3/uL; Eosinophils% 1.6 % (0-5); Hematocrit 24.4 % (40-54); Lymphocyte # 0.71 X10^3/ul (0.83-4.51); Lymphocyte % 6.9 % (19-41); Mean Corp Hgb Conc 32.8 g/dL (32-36); Mean Corpuscular Hgb 37.9 pg (27.0-32.0); Mean Corpuscular Volume 115.6 fL (80-94); Mean Platelet Vol. 10.4 fl (6.2-12.0); Monocyte# 0.83 X10^3/uL; Monocyte% 8.1 % (0-10); NRBC Flagged by Analyzer 0 % (0-5); Neutrophil # 8.39 X10^3/uL (2.7-7.7); Neutrophil % 81.6 % (47-70); Platelet Count 282 K/mm3 (150-450); RBC Distribution Width CV 14.5 % (11.6-14.6); RBC Distribution Width SD 61.7 fl (35.1-43.9); Red Blood Count 2.11 M/mm3 (4.6-6.2); White Blood Count 10.3 K/mm3 (4.4-11.0)
[2024-12-25 06:18] LABS: Anion Gap 11 (5-15); BUN 39 mg/dL (4-19); BUN/Creat Ratio 13.1 RATIO (10-20); Calcium,Total 8.3 mg/dL (7.6-11.0); Carbon Dioxide 27.8 mmol/L (21.0-32.0); Chloride 102 mmol/L (98-108); Creatinine, Serum 2.95 mg/dL (0.70-1.20); EST Glomerular Filtration Rate 20 (>60); Estimated Creatinine Clearance 15.56 ml/min (50-250); Glucose 90 mg/dL (70-99); Potassium 4.1 mmol/L (3.3-5.1); Sodium Level 141 mmol/L (133-145)
[2024-12-25 07:12] VITALS: O2SAT 96
[2024-12-25 10:00] VITALS: O2SAT 94
[2024-12-25 10:03] VITALS: BP 114/72; PULSE 61; RESP 17; TEMP 36.7; O2SAT 98
[2024-12-25] MEDS: Tamsulosin HCl 0.4 MG Capsule PO ×2 (10:08→21:23)
[2024-12-25] MEDS: Loratadine 10 MG Tablet PO (10:08)
[2024-12-25] MEDS: Pantoprazole Sodium 20 MG Tablet PO (10:08)
[2024-12-25] MEDS: Senna/Docusate Sodium 1 Tablet 2 TABLET PO ×2 (10:08→21:22)
[2024-12-25] MEDS: busPIRone 5 MG Tablet PO ×2 (10:08→21:22)
[2024-12-25] MEDS: Ranolazine 500 MG Tablet PO ×2 (10:08→21:22)
[2024-12-25] MEDS: Furosemide 40 MG Tablet PO (10:08)
[2024-12-25] MEDS: Ascorbic Acid 500 MG Tablet PO ×2 (10:08→16:12)
[2024-12-25] MEDS: Finasteride 5 MG Tablet PO (10:08)
[2024-12-25] MEDS: 0.9% Saline Lock 10 ML Syringe IV ×2 (10:09→21:23)
[2024-12-25] MEDS: Tuberculin,Purif.prot.deriv. 50 TU/ML Vial 0.1 ML ID (10:09)
[2024-12-25 14:07] VITALS: BMI 19.0
[2024-12-25] MEDS: MELATONIN 3 MG TABLET PO (21:21)
[2024-12-25] MEDS: Atorvastatin Calcium 40 MG Tablet PO (21:22)
[2024-12-25] MEDS: Cholecalciferol (VIT D3) 25 MCG TABLET (1,000 UNITS) PO (21:22)
[2024-12-25] MEDS: traZODone 50 MG Tablet 25 MG PO (21:23)
[2024-12-25] MEDS: Ferrous Sulfate 325 MG Tablet PO (21:23)
[2024-12-25] MEDS: MENTHOL 226.8 GM JAR 1 APPLIC TOPICAL (21:23)
[2024-12-25 21:30] VITALS: PULSE 59; RESP 16
[2024-12-25] MEDS: Acetaminophen 500 MG Tablet 1000 MG PO (22:37)
[2024-12-26 06:26] LABS: Hematocrit 23.9 % (40-54); Hemoglobin 7.8 g/dL (13.0-16.5)
[2024-12-26] MEDS: Levothyroxine 50 MCG Tablet PO (06:27)
[2024-12-26 07:59] VITALS: BP 147/91; PULSE 78; RESP 18; TEMP 36.6; O2SAT 97
--- NOTE | 2024-12-26 08:00 | NURSING ---
Addendum entered by Meryl Romo 12/26/24 08:16: Will go to infusion center tomorrow at 0830. Updated resident. Original Note: Written order for 2 units of blood, orders entered, paper order faxed to infusion center.
[2024-12-26] MEDS: busPIRone 5 MG Tablet PO ×2 (08:01→21:27)
[2024-12-26] MEDS: Senna/Docusate Sodium 1 Tablet 2 TABLET PO (08:02)
[2024-12-26] MEDS: Ranolazine 500 MG Tablet PO ×2 (08:02→21:29)
[2024-12-26] MEDS: Tamsulosin HCl 0.4 MG Capsule PO ×2 (08:02→21:29)
[2024-12-26] MEDS: Furosemide 40 MG Tablet PO (08:02)
[2024-12-26] MEDS: Ascorbic Acid 500 MG Tablet PO ×2 (08:03→16:22)
[2024-12-26] MEDS: Pantoprazole Sodium 20 MG Tablet PO (08:03)
[2024-12-26] MEDS: Finasteride 5 MG Tablet PO (08:04)
[2024-12-26] MEDS: 0.9% Saline Lock 10 ML Syringe IV (08:07)
[2024-12-26 09:45] VITALS: O2SAT 97
--- NOTE | 2024-12-26 10:46 | CASEMGMT ---
Social Work IDT met with patient, sister and MIKE for care plan meeting. Discussed patient's progress in PT/OT/SN. Educated to Medicare benefit. Provided pt/family with written communication of insurance process and copay coverage during stay. Pt's goal is to return home alone. Will monitor O2 needs for DC. Sister inquired about AL. IDT agrees AL would be appropriate and provide assistance with IADLs. Explained IDT has discussed that with pt at several past visits and pt was reluctant mostly d/t cost. SW explained AL is an OOP cost. Other options could be hiring RVDA MASTER CERTIFIED RV TECHNICIAN in the home and MOW. SW provided resources for AL, RVDA MASTER CERTIFIED RV TECHNICIAN, and MOW. family to discuss. SW will continue to follow for DC planning. Roya Sarabia BELLING MACHINE OPERATOR BARREL CENTERER
[2024-12-26] MEDS: traZODone 50 MG Tablet 25 MG PO (21:28)
[2024-12-26] MEDS: Atorvastatin Calcium 40 MG Tablet PO (21:29)
[2024-12-26] MEDS: Ferrous Sulfate 325 MG Tablet PO (21:29)
[2024-12-26] MEDS: Cholecalciferol (VIT D3) 25 MCG TABLET (1,000 UNITS) PO (21:30)
[2024-12-27] MEDS: Acetaminophen 500 MG Tablet 1000 MG PO ×2 (01:26→23:05)
[2024-12-27] MEDS: 0.9% Saline Lock 10 ML Syringe IV ×2 (01:28→17:09)
[2024-12-27] MEDS: MENTHOL 226.8 GM JAR 1 APPLIC TOPICAL ×3 (01:32→23:01)
[2024-12-27 05:42] LABS: Hemoglobin 7.9 g/dL (13.0-16.5)
[2024-12-27] MEDS: Levothyroxine 50 MCG Tablet PO (06:23)
--- NOTE | 2024-12-27 07:53 | NURSING ---
Change in transfusion time, will go tomorrow (12/28/24) at 0800. Updated resident.
[2024-12-27 09:11] VITALS: BP 111/71; PULSE 62; RESP 18; TEMP 37.1; O2SAT 97
[2024-12-27] MEDS: busPIRone 5 MG Tablet PO ×2 (09:14→20:12)
[2024-12-27] MEDS: Ascorbic Acid 500 MG Tablet PO ×2 (09:14→16:06)
[2024-12-27] MEDS: Furosemide 40 MG Tablet PO (09:15)
[2024-12-27] MEDS: Senna/Docusate Sodium 1 Tablet 2 TABLET PO ×2 (09:15→20:11)
[2024-12-27] MEDS: Finasteride 5 MG Tablet PO (09:15)
[2024-12-27] MEDS: Tamsulosin HCl 0.4 MG Capsule PO ×2 (09:15→20:12)
[2024-12-27] MEDS: Pantoprazole Sodium 20 MG Tablet PO (09:15)
[2024-12-27] MEDS: Ranolazine 500 MG Tablet PO ×2 (09:15→20:12)
[2024-12-27] MEDS: Loratadine 10 MG Tablet PO (09:15)
--- NOTE | 2024-12-27 10:34 | MDS.RN ---
Information for the MDS was obtained from review of the clinical record, interview of resident, staff, and direct observation of resident?s care.
--- NOTE | 2024-12-27 10:43 | NURSING ---
Updated Dr. Hodges on new consult.
[2024-12-27 20:00] VITALS: BP 121/67; PULSE 66; RESP 16; O2SAT 95
[2024-12-27] MEDS: Atorvastatin Calcium 40 MG Tablet PO (20:11)
[2024-12-27] MEDS: Ferrous Sulfate 325 MG Tablet PO (20:12)
[2024-12-27] MEDS: traZODone 50 MG Tablet 25 MG PO (20:12)
[2024-12-27] MEDS: Cholecalciferol (VIT D3) 25 MCG TABLET (1,000 UNITS) PO (20:13)
[2024-12-28] VITALS (10 sets, daily range): BP systolic 121–148; BP diastolic 68–91; PULSE 16–76; RESP 16–20; TEMP 35.7–36.8; O2SAT 2–100; BMI 19.0
--- NOTE | 2024-12-28 00:01 | NURSING ---
NPO per order
--- NOTE | 2024-12-28 07:25 | NURSING ---
Updated endo that resident going for blood this morning, they will plan to do egd this afternoon, unsure what time.
[2024-12-28] MEDS: Ranolazine 500 MG Tablet PO ×2 (07:41→20:24)
[2024-12-28] MEDS: Pantoprazole Sodium 20 MG Tablet PO (07:41)
--- NOTE | 2024-12-28 08:00 | NURSING ---
Patient going down for blood transfusion at this time.
--- NOTE | 2024-12-28 08:09 | NURSING ---
Resident off unit to infusion center via WC at 0800.
[2024-12-28] MEDS: 0.9% Saline Lock 10 ML Syringe IV ×2 (08:19→13:22)
[2024-12-28] MEDS: Furosemide 20 MG/2 ML VIAL IV (10:42)
--- NOTE | 2024-12-28 13:45 | NURSING ---
Return from blood transfusion. Denies needs.
--- NOTE | 2024-12-28 14:45 | NURSING ---
Getting picked up to go for EGD
--- NOTE | 2024-12-28 17:25 | NURSING ---
Return from EGD. 4 ulcers cauterized. Return to regular diet.
[2024-12-28] MEDS: Furosemide 40 MG Tablet PO (18:36)
[2024-12-28] MEDS: Ascorbic Acid 500 MG Tablet PO (18:37)
[2024-12-28] MEDS: Finasteride 5 MG Tablet PO (18:37)
[2024-12-28] MEDS: busPIRone 5 MG Tablet PO (20:24)
[2024-12-28] MEDS: Ferrous Sulfate 325 MG Tablet PO (20:24)
[2024-12-28] MEDS: Cholecalciferol (VIT D3) 25 MCG TABLET (1,000 UNITS) PO (20:24)
[2024-12-28] MEDS: Tamsulosin HCl 0.4 MG Capsule PO (20:24)
[2024-12-28] MEDS: Senna/Docusate Sodium 1 Tablet 2 TABLET PO (20:24)
[2024-12-28] MEDS: Atorvastatin Calcium 40 MG Tablet PO (20:24)
[2024-12-28] MEDS: traZODone 50 MG Tablet 25 MG PO (20:25)
[2024-12-28] MEDS: MENTHOL 226.8 GM JAR 1 APPLIC TOPICAL (23:38)
[2024-12-28] MEDS: Acetaminophen 500 MG Tablet 1000 MG PO (23:41)
[2024-12-29 02:12] VITALS: RESP 16
[2024-12-29] MEDS: Levothyroxine 50 MCG Tablet PO (05:11)
[2024-12-29 07:10] VITALS: O2SAT 93
[2024-12-29 09:31] VITALS: BP 111/69; PULSE 60; RESP 17; TEMP 36.4; O2SAT 92
[2024-12-29] MEDS: Ascorbic Acid 500 MG Tablet PO ×2 (09:34→17:49)
[2024-12-29] MEDS: busPIRone 5 MG Tablet PO ×2 (09:34→21:31)
[2024-12-29] MEDS: Loratadine 10 MG Tablet PO (09:34)
[2024-12-29] MEDS: Furosemide 40 MG Tablet PO (09:35)
[2024-12-29] MEDS: Pantoprazole Sodium 20 MG Tablet PO (09:35)
[2024-12-29] MEDS: Tamsulosin HCl 0.4 MG Capsule PO ×2 (09:35→21:31)
[2024-12-29] MEDS: Finasteride 5 MG Tablet PO (09:35)
[2024-12-29] MEDS: Ranolazine 500 MG Tablet PO ×2 (09:36→21:31)
[2024-12-29] MEDS: Senna/Docusate Sodium 1 Tablet 2 TABLET PO ×2 (09:36→21:31)
[2024-12-29] MEDS: MENTHOL 226.8 GM JAR 1 APPLIC TOPICAL ×2 (14:03→21:36)
[2024-12-29] MEDS: 0.9% Saline Lock 10 ML Syringe IV ×2 (14:04→21:41)
[2024-12-29 17:04] LABS: Hemoglobin 10.4 g/dL (13.0-16.5)
[2024-12-29] MEDS: Ferrous Sulfate 325 MG Tablet PO (21:31)
[2024-12-29] MEDS: traZODone 50 MG Tablet 25 MG PO (21:31)
[2024-12-29] MEDS: Cholecalciferol (VIT D3) 25 MCG TABLET (1,000 UNITS) PO (21:32)
[2024-12-29] MEDS: Atorvastatin Calcium 40 MG Tablet PO (21:32)
[2024-12-30] MEDS: Acetaminophen 500 MG Tablet 1000 MG PO (00:50)
[2024-12-30] MEDS: Levothyroxine 50 MCG Tablet PO (05:46)
[2024-12-30] MEDS: Ascorbic Acid 500 MG Tablet PO ×2 (08:59→16:57)
[2024-12-30] MEDS: Senna/Docusate Sodium 1 Tablet 2 TABLET PO ×2 (09:01→20:49)
[2024-12-30] MEDS: Ranolazine 500 MG Tablet PO ×2 (09:01→20:47)
[2024-12-30] MEDS: busPIRone 5 MG Tablet PO ×2 (09:01→20:48)
[2024-12-30] MEDS: Pantoprazole Sodium 20 MG Tablet PO (09:01)
[2024-12-30] MEDS: Finasteride 5 MG Tablet PO (09:02)
[2024-12-30] MEDS: Tamsulosin HCl 0.4 MG Capsule PO ×2 (09:02→20:50)
[2024-12-30] MEDS: Furosemide 40 MG Tablet PO (09:02)
[2024-12-30] MEDS: 0.9% Saline Lock 10 ML Syringe IV (09:06)
[2024-12-30 10:00] VITALS: O2SAT 94
[2024-12-30 13:37] VITALS: BP 117/68; PULSE 61; RESP 15; TEMP 36.4; O2SAT 95
[2024-12-30] MEDS: Ferrous Sulfate 325 MG Tablet PO (20:49)
[2024-12-30] MEDS: Cholecalciferol (VIT D3) 25 MCG TABLET (1,000 UNITS) PO (20:49)
[2024-12-30] MEDS: traZODone 50 MG Tablet 25 MG PO (20:50)
[2024-12-30] MEDS: Atorvastatin Calcium 40 MG Tablet PO (20:50)
[2024-12-30] MEDS: MENTHOL 226.8 GM JAR 1 APPLIC TOPICAL (22:38)
[2024-12-30] MEDS: MELATONIN 3 MG TABLET PO (22:42)
[2024-12-31] MEDS: Levothyroxine 50 MCG Tablet PO (05:56)
[2024-12-31 08:13] VITALS: BP 140/76; PULSE 60; RESP 18; TEMP 36.6; O2SAT 100
[2024-12-31] MEDS: busPIRone 5 MG Tablet PO ×2 (08:19→22:12)
[2024-12-31] MEDS: Ascorbic Acid 500 MG Tablet PO ×2 (08:19→16:15)
[2024-12-31] MEDS: Loratadine 10 MG Tablet PO (08:21)
[2024-12-31] MEDS: Tamsulosin HCl 0.4 MG Capsule PO ×2 (08:21→22:12)
[2024-12-31] MEDS: Pantoprazole Sodium 20 MG Tablet PO (08:21)
[2024-12-31] MEDS: Senna/Docusate Sodium 1 Tablet 2 TABLET PO ×2 (08:21→22:12)
[2024-12-31] MEDS: Ranolazine 500 MG Tablet PO ×2 (08:21→22:12)
[2024-12-31 10:21] VITALS: O2SAT 97
[2024-12-31] MEDS: 0.9% Saline Lock 10 ML Syringe IV (12:06)
[2024-12-31] MEDS: Furosemide 40 MG Tablet PO (12:06)
[2024-12-31] MEDS: Finasteride 5 MG Tablet PO (12:06)
[2024-12-31] MEDS: Mag Hydrox/Al Hydrox/Simeth 30 ML UDC 15 ML PO (20:12)
[2024-12-31] MEDS: Cholecalciferol (VIT D3) 25 MCG TABLET (1,000 UNITS) PO (22:11)
[2024-12-31] MEDS: Ferrous Sulfate 325 MG Tablet PO (22:12)
[2024-12-31] MEDS: Atorvastatin Calcium 40 MG Tablet PO (22:12)
[2024-12-31] MEDS: traZODone 50 MG Tablet 25 MG PO (22:12)
[2025-01-01] MEDS: Levothyroxine 50 MCG Tablet PO (05:09)
[2025-01-01 05:35] LABS: Absolute Neutrophil Count 6.8 X10^3/uL (2.0-7.7); Basophil# 0.06 X10^3/uL; Basophil% 0.7 % (0-1); Eosinophil# 0.16 X10^3/uL; Eosinophils% 1.9 % (0-5); Hematocrit 30.3 % (40-54); Hemoglobin 10.3 g/dL (13.0-16.5); Lymphocyte % 8.4 % (19-41); Mean Corpuscular Hgb 36.3 pg (27.0-32.0); Mean Corpuscular Volume 106.7 fL (80-94); Mean Platelet Vol. 9.4 fl (6.2-12.0); Monocyte% 7.2 % (0-10); NRBC Flagged by Analyzer 0 % (0-5); Neutrophil # 6.79 X10^3/uL (2.7-7.7); Neutrophil % 81.1 % (47-70); POSITIVE MORPHOLOGY YES; Platelet Count 205 K/mm3 (150-450); RBC Distribution Width CV 17.8 % (11.6-14.6); RBC Distribution Width SD 70.2 fl (35.1-43.9); Red Blood Count 2.84 M/mm3 (4.6-6.2); White Blood Count 8.4 K/mm3 (4.4-11.0)
[2025-01-01 05:38] LABS: Differential Indicated SCAN CRITERIA MET
[2025-01-01 06:05] LABS: Anion Gap 10 (5-15); BUN 39 mg/dL (4-19); Calcium,Total 8.3 mg/dL (7.6-11.0); Carbon Dioxide 25.5 mmol/L (21.0-32.0); Chloride 105 mmol/L (98-108); Creatinine, Serum 2.31 mg/dL (0.70-1.20); EST Glomerular Filtration Rate 27 (>60); Estimated Creatinine Clearance 19.48 ml/min (50-250); Glucose 82 mg/dL (70-99); Potassium 3.6 mmol/L (3.3-5.1); Sodium Level 140 mmol/L (133-145)
[2025-01-01 07:40] VITALS: O2SAT 96
[2025-01-01 08:52] VITALS: BP 123/69; PULSE 60; RESP 17; O2SAT 92
[2025-01-01] MEDS: Tamsulosin HCl 0.4 MG Capsule PO ×2 (08:54→21:27)
[2025-01-01] MEDS: Furosemide 40 MG Tablet PO (08:54)
[2025-01-01] MEDS: Pantoprazole Sodium 20 MG Tablet PO (08:54)
[2025-01-01] MEDS: Finasteride 5 MG Tablet PO (08:54)
[2025-01-01] MEDS: busPIRone 5 MG Tablet PO ×2 (08:54→21:26)
[2025-01-01] MEDS: Ascorbic Acid 500 MG Tablet PO ×2 (08:54→16:54)
[2025-01-01] MEDS: Ranolazine 500 MG Tablet PO ×2 (08:55→21:26)
[2025-01-01] MEDS: Senna/Docusate Sodium 1 Tablet 2 TABLET PO ×2 (08:55→21:26)
[2025-01-01] MEDS: Mag Hydrox/Al Hydrox/Simeth 30 ML UDC 15 ML PO (10:33)
--- NOTE | 2025-01-01 10:33 | NURSING ---
Addendum entered by To Hernandez 01/01/25 11:03: Patient feeling better after Mylanta. Patient provided saltine crackers. Patient appreciative. No further needs at this time. Call light within reach. Original Note: Patient having nausea this morning with dry heaving. Patient thinks its related to sausage for dinner last night and liberian toast this morning. Patient requesting Mylanta for stomach. Same provided. Will reassess effectiveness of medication. Call light within reach.
[2025-01-01 11:29] VITALS: BMI 19.6
[2025-01-01 16:53] VITALS: TEMP 36.6
--- NOTE | 2025-01-01 18:26 | NURSING ---
Patient called nursing into room. Patient expressed concerns that he is filling up with fluid again. Notes pedal edema, patient feeling more SOB w/ ex. and wearing O2 more today. RN reviewed patients weights and notes an increase. No respiratory distress noted at this time. Patient is currently on Lasix 40mg PO daily. Communication left for Dr. Samuel. Patient appreciative. No further needs. Call light within reach.
[2025-01-01] MEDS: MENTHOL 226.8 GM JAR 1 APPLIC TOPICAL (21:23)
[2025-01-01] MEDS: Atorvastatin Calcium 40 MG Tablet PO (21:27)
[2025-01-01] MEDS: traZODone 50 MG Tablet 25 MG PO (21:28)
[2025-01-01] MEDS: Ferrous Sulfate 325 MG Tablet PO (21:28)
[2025-01-01] MEDS: Cholecalciferol (VIT D3) 25 MCG TABLET (1,000 UNITS) PO (21:29)
[2025-01-01] MEDS: Acetaminophen 500 MG Tablet 1000 MG PO (23:02)
[2025-01-02] MEDS: Levothyroxine 50 MCG Tablet PO (06:22)
[2025-01-02] MEDS: Ranolazine 500 MG Tablet PO ×2 (08:44→22:56)
[2025-01-02] MEDS: Tamsulosin HCl 0.4 MG Capsule PO ×2 (08:45→22:56)
[2025-01-02] MEDS: busPIRone 5 MG Tablet PO ×2 (08:45→22:56)
[2025-01-02] MEDS: Finasteride 5 MG Tablet PO (08:46)
[2025-01-02] MEDS: Pantoprazole Sodium 20 MG Tablet PO (08:46)
[2025-01-02] MEDS: Loratadine 10 MG Tablet PO (08:47)
[2025-01-02] MEDS: Ascorbic Acid 500 MG Tablet PO ×2 (08:47→17:31)
[2025-01-02] MEDS: Furosemide 40 MG Tablet PO ×2 (08:47→13:46)
[2025-01-02] MEDS: Senna/Docusate Sodium 1 Tablet 2 TABLET PO ×2 (08:48→22:56)
[2025-01-02 10:00] VITALS: O2SAT 96
[2025-01-02 12:00] VITALS: BMI 19.9
--- NOTE | 2025-01-02 14:50 | CASEMGMT ---
Addendum entered by Roya Sarabia 01/09/25 08:51: Overnight trending pulse ox completed and ordered overnight O2 for home. MAGNUS sent referral to [facility] via [employer]. Original Note: Social Work SW phoned [facility] Orte[facility] to discuss setting DC date. Pt will need sleep study at [place] and there is a bed opening on 01/10. Pt is supervised for all tasks but still using daytime O2 for comfort. IDT set DC date for 01/10. MIKE agreeable to transport home after sleep study. - MAGNUS spoke with pt at bedside. Discussed setting DC date for 01/10 to sleep study. Pt agreeable. Pt confirmed [facility]. - MAGNUS phoned referral to [facility] for PT/OT/SN. Plan: DC 01/10 to sleep study, then home; [facility] PT/OT/SN Roya Sarabia [employer]IOR ANALYST [employer]
[2025-01-02 16:00] VITALS: BP 137/79; PULSE 60; RESP 18; TEMP 36.6; O2SAT 100
--- NOTE | 2025-01-02 20:40 | DS.PCM_ITS ---
Providers Date of Admission: 12/17/24 Primary Care Physician: Dr. César Chinchilla MD Consultations 12/27/24 07:35 Consult: Gastroenterology Routine Consulting Provider: [facility] Reason for Consult: Anemia, +Hemoccult. EMERGENT Consult: No MD Notified: Yes Date Notified: 12/27/24 Time Notified: 10:42 Method of Notification: Text Reason For Visit: GI BLEED, PACEMAKER PLACEMENT Diagnosis Discharge Diagnosis (1) Debility: Status: Acute Code(s): R53.81 - Other malaise (2) Bright red blood per rectum: Status: Inactive Code(s): K62.5 - Hemorrhage of anus and rectum (3) Angiodysplasia of stomach: Status: Inactive Code(s): K31.819 - Angiodysplasia of stomach and duodenum without bleeding (4) Upper gastrointestinal bleed: Status: Acute Code(s): K92.2 - Gastrointestinal hemorrhage, unspecified (5) Acute blood loss anemia: Status: Inactive Code(s): D62 - Acute posthemorrhagic anemia (6) Bradycardia: Status: Inactive Code(s): R00.1 - Bradycardia, unspecified (7) Status post placement of cardiac pacemaker: Status: Acute Code(s): Z95.0 - Presence of cardiac pacemaker (8) Orthostatic hypotension: Status: Acute Code(s): I95.1 - Orthostatic hypotension (9) Acute on chronic heart failure with preserved ejection fraction (HFpEF): Status: Resolved Code(s): I50.33 - Acute on chronic diastolic (congestive) heart failure (10) Atrial fibrillation: Status: Inactive Code(s): I48.91 - Unspecified atrial fibrillation (11) Coronary artery disease: Status: Inactive Code(s): I25.10 - Atherosclerotic heart disease of [place] coronary artery without angina pectoris (12) GERD (gastroesophageal reflux disease): Status: Acute Code(s): K21.9 - Gastro-esophageal reflux disease without esophagitis (13) Hypokalemia: Status: Acute Code(s): E87.6 - Hypokalemia (14) BPH (benign prostatic hyperplasia): Status: Acute Code(s): N40.0 - Benign prostatic hyperplasia without lower urinary tract symptoms (15) Hypothyroidism: Status: Acute Code(s): E03.9 - Hypothyroidism, unspecified (16) Hypomagnesemia: Status: Acute Code(s): E83.42 - Hypomagnesemia (17) Insomnia: Status: Acute Code(s): G47.00 - Insomnia, unspecified (18) Leg cramps: Status: Acute Code(s): R25.2 - Cramp and spasm Plan 84 year old male with below past medical history hospitalized for upper gi bleeding 2/2 gastric angiodysplasia, complicated by nstemi, orthostatic hypotension, acute on chronic hfpef, acute respiratory failure with hypoxia, bradycardia requiring pacemaker implantation, admitted to TCU with debility, here for rehabilitation, strengthening, prior to discharge home alone. * Debility - PT/OT. * Pain - Tylenol 1000mg q6 prn pain (1-10). * Bowel - senna/colace 2 tablets bid. * Adult immunization - Administer pneumonia vaccine, covid vaccine, flu vaccine as appropriate. * DVT prophylaxis - Hold, UGIB, anemia. * COPD - Albuterol 2.5mg q2 prn. * Iron deficiency anemia - Ferrous sulfate 325mg qhs, Vitamin C 500mg bid. * Hyperlipidemia - Atorvastatin 40mg qhs. * Vitamin D deficiency - D3 25mcg qhs. * BPH - Finasteirde 5mg daily, Tamsulosin 0.4mg bid. * Chronic HFpEF - Furosemide 80mg bidlx. * Coronary artery disease - Ranexa 500mg bid, NT g0.4mg sl q5m prn. * Hypothyroidism - Levothyroxine 50mcg daily. * GERD - Pantoprazole 20mg daily, Mylanta 2 15mL po q4 prn. * Insomnia - Melatonin 3mg qhs, Trazodone 25mg qhs, stable chronic mcfp use, GDR not recommended. * Skin irritation - Calmoseptine topical tid rpn. * Hypokalemia - KCL 40meq bidcm. * ALVARADO - PAP therapy naps, qhs. Medications at Discharge Home Medications tamsulosin 0.4 mg capsule 0.4 mg PO BID PROSTATE 11/18/21 ascorbic acid (vitamin C) 500 mg tablet 500 mg PO BID SUPPLEMENT 07/20/22 finasteride 5 mg tablet 5 mg PO DAILY PROSTATE 08/05/22 cholecalciferol (vitamin D3) 25 mcg (1,000 unit) capsule (Vitamin D3) 1,000 unit PO QHS SUPPLEMENT 02/19/23 trazodone 50 mg tablet 25 mg PO QHS INSOMNIA 02/28/24 ferrous sulfate 325 mg (65 mg iron) tablet (Feosol) 325 mg PO QHS ANEMIA 03/20/24 levothyroxine 50 mcg tablet 50 mcg PO DAILY THYROID 03/20/24 pantoprazole 20 mg tablet,delayed release 20 mg PO DAILY Gerd 08/28/24 aluminum-mag hydroxide-simethicone 400 mg-400 mg-40 mg/5 mL oral susp (Mag-Al Plus Extra Strength) 15 ml PO Q4H PRN PRN Indigestion #0 mL 12/17/24 atorvastatin 40 mg tablet 40 mg PO QHS cholesterol #0 tabs 12/17/24 melatonin 3 mg tablet 3 mg PO QHS PRN PRN Insomnia #0 tabs 12/17/24 menthol 2 % topical gel (Blue Gel) 1 applic topical TID PRN PRN Arthritis Pain 1-10 #0 grams 12/17/24 nitroglycerin 0.4 mg sublingual tablet 0.4 mg sublingual Q5M PRN Cardiac/Chest Pain #0 tabs 12/17/24 ranolazine 500 mg tablet,extended release,12 hr 500 mg PO BID heart health #0 tabs 12/17/24 buspirone 5 mg tablet 5 mg PO BID 12/28/24 loratadine 10 mg tablet (Claritin) 10 mg PO .q48 12/28/24 acetaminophen 500 mg tablet 1,000 mg (2 x 500 mg) PO Q6H PRN PRN Pain Score 1-10 #0 tabs 01/02/25 furosemide 40 mg tablet 40 mg PO BIDLX 30 days #60 tabs 01/02/25 Hospital Course Operations None Procedures EGD and - (Pacemaker implantation. ) Summary of Care Provided Minutes Spent on Discharge: 35 Hospital Course: 84 year old male with below past medical history hospitalized for upper gi bleeding 2/2 gastric angiodysplasia, complicated by nstemi, orthostatic hypotension, acute on chronic hfpef, acute respiratory failure with hypoxia, bradycardia requiring pacemaker implantation, admitted to TCU with debility, here for rehabilitation, strengthening, prior to discharge home alone. 12/28/2024 Resident transfused 2 units PRBC. 12/28/2024 Friend EGD: Impressions : - No gross lesions in the entire esophagus. - Non-bleeding gastric ulcer with no stigmata of bleeding. Treated with a heater probe. - No gross lesions in the entire examined duodenum. 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 Treated with a heater probe. - No specimens collected. Discharge 01/10/2025 to sleep study, then home; [facility] PT/OT/SN. Physical Exam Const alert General Appearance: cooperative HEENT normocephalic Eyes PERRL and EOMs intact bilaterally Neck supple, no JVD and no carotid bruits Resp normal respiratory effort, normal air movement and clear to auscultation bilaterally Cardio regular rate and regular rhythm GI normal to inspection, nondistended, normoactive bowel sounds, non-tender and non-distended Extremity normal capillary refill General Extremity: Negative for edema Skin no rashes or lesions noted General Skin Exam: no breakdown Psych affect normal Appearance: appropriate Weight / BMI Weight Weight: 59.511 kg Body Mass Index (BMI) 19.9 ABG / Lab / Microbiology Data 01/01/25 05:26 01/01/25 05:26 Microbiology: Microbiology 12/26/24 11:05 Stool Stool Occult Blood (AUBREE) - Final Occult Blood Positive D/C Instructions Discharge Diet: No restrictions Discharge Activity: Return to Normal Activity, May Shower and Use Walker Weight Bearing Status: Weight bearing as tolerated Call your doctor if you observe: Fever of 101 or Higher, Inability to urinate, Inability to have a bowel movement, Shortness of breath, Dizziness, Fainting spells, Swelling in the ankles, Chest pain and Uncontrolled pain DC O2, CPAP, BIPAP Needs Home O2 Discharge instructions: Yes Type of respiratory needs?: Oxygen (2 Liters.) Oxygen frequency: At rest DC home with Oxygen: Yes Home O2 MD Review: I have reviewed the oxygen testing, and the patient qualifies for home oxygen equipment and portability. The patient is mobile in the home and the community. Additional Instructions: Discharge 01/10/2025 to sleep study, then home; [facility] PT/OT/SN. Please Follow Up With: Tremaine Molina MD When: As scheduled. Meaningful Use Info Meaningful Use Meaningful Use Diagnoses (Choose all that apply): None applicable Ischemic Stroke Statin Dosing Therapy Reference: STATIN DOSE THERAPY REFERENCE: * Patients > 75 years receive moderate or high dose statin therapy. * Patients 75 years or YOUNGER should receive HIGH intensity statin dose unless contraindicated. You will be required to document reason for non-treatment if statin daily dose does not meet guidelines. HIGH DOSE STATIN THERAPY DAILY Atorvastatin > than or = to 40 mg Rosuvastatin > than or = to 20 mg Amlodipine + Atorvastatin > than or = to 2.5/40 mg Ezetimibe + Simvastatin 10/80 mg Simvastatin 80mg Discharge Plan Admission Admit Date/Time: 12/17/24 18:48 Primary Reason for Your Visit: Debility. Attending Provider: Marcus Samuel Chi Primary Care Provider: César Chinchilla Instructions Additional Instructions / Restrictions: Discharge 01/10/2025 to sleep study, then home; [facility] PT/OT/SN. Discharge Orders/Prescriptions Prescriptions: New furosemide 40 mg Tablet 40 mg PO BIDLX 30 Days Qty: 60 0RF acetaminophen 500 mg Tablet 1,000 mg PO Q6H PRN PRN (Reason: Pain Score 1-10) Qty: 0 0RF Continued tamsulosin 0.4 mg capsule 0.4 mg PO BID ascorbic acid (vitamin C) 500 mg tablet 500 mg PO BID finasteride 5 mg tablet 5 mg PO DAILY trazodone 50 mg tablet 25 mg PO QHS pantoprazole 20 mg tablet,delayed release (DR/EC) 20 mg PO DAILY cholecalciferol (vitamin D3) [Vitamin D3] 25 mcg (1,000 unit) Capsule 1,000 unit PO QHS atorvastatin 40 mg Tablet 40 mg PO QHS Qty: 0 0RF melatonin 3 mg Tablet 3 mg PO QHS PRN PRN (Reason: Insomnia) Qty: 0 0RF nitroglycerin 0.4 mg Tablet, Sublingual 0.4 mg sublingual Q5M PRN (Reason: Cardiac/Chest Pain) Qty: 0 0RF alum-mag hydroxide-simeth [Mag-Al Plus Extra Strength] 400-400-40 mg/5 mL Suspension 15 ml PO Q4H PRN PRN (Reason: Indigestion) Qty: 0 0RF menthol [Blue Gel] 2 % Gel 1 applic topical TID PRN PRN (Reason: Arthritis Pain 1-10) Qty: 0 0RF ranolazine 500 mg Tablet Extended Release 12 Hr 500 mg PO BID Qty: 0 0RF ferrous sulfate [Feosol] 325 mg (65 mg iron) tablet 325 mg PO QHS levothyroxine 50 mcg Tablet 50 mcg PO DAILY buspirone 5 mg tablet 5 mg PO BID loratadine [Claritin] 10 mg tablet 10 mg PO .q48 Discontinued acetaminophen [Acetaminophen Extra Strength] 500 mg tablet 1,000 mg PO Q6H PRN (Reason: pain) albuterol sulfate 2.5 mg /3 mL (0.083 %) Solution For Nebulization 2.5 mg inhalation Q2H PRN PRN (Reason: SOB &/OR WHEEZING) Qty: 0 0RF sennosides-docusate sodium [Stimulant Laxative Plus] 8.6-50 mg Tablet 2 tab PO BID Qty: 0 0RF alum-mag hydroxide-simeth [Mag-Al Plus Extra Strength] 400-400-40 mg/5 mL suspension 15 ml PO Q4H PRN (Reason: indigestion) furosemide [Lasix] 80 mg tablet 40 mg PO DAILY Referrals / Follow Up: César Chinchilla MD [Primary Care Provider] - Disposition Disposition (needs filled in before D/C Order can be placed): Home Health Service
[2025-01-02] MEDS: traZODone 50 MG Tablet 25 MG PO (22:56)
[2025-01-02] MEDS: Ferrous Sulfate 325 MG Tablet PO (22:56)
[2025-01-02] MEDS: Cholecalciferol (VIT D3) 25 MCG TABLET (1,000 UNITS) PO (22:56)
[2025-01-02] MEDS: Atorvastatin Calcium 40 MG Tablet PO (22:57)
[2025-01-02] MEDS: 0.9% Saline Lock 10 ML Syringe IV (23:03)
[2025-01-02] MEDS: MENTHOL 226.8 GM JAR 1 APPLIC TOPICAL (23:48)
[2025-01-03] MEDS: Mag Hydrox/Al Hydrox/Simeth 30 ML UDC 15 ML PO (01:21)
[2025-01-03 05:58] LABS: Anion Gap 11 (5-15); BUN 39 mg/dL (4-19); BUN/Creat Ratio 17.7 RATIO (10-20); Calcium,Total 8.2 mg/dL (7.6-11.0); Carbon Dioxide 25.5 mmol/L (21.0-32.0); Chloride 105 mmol/L (98-108); Creatinine, Serum 2.19 mg/dL (0.70-1.20); EST Glomerular Filtration Rate 29 (>60); Estimated Creatinine Clearance 21.58 ml/min (50-250); Glucose 83 mg/dL (70-99); Potassium 3.4 mmol/L (3.3-5.1); Sodium Level 141 mmol/L (133-145)
[2025-01-03] MEDS: Furosemide 40 MG Tablet PO ×2 (06:21→13:04)
[2025-01-03] MEDS: Levothyroxine 50 MCG Tablet PO (06:21)
[2025-01-03 07:15] VITALS: O2SAT 94
[2025-01-03 09:02] VITALS: BP 144/81; PULSE 60; RESP 18; TEMP 36.7; O2SAT 98
[2025-01-03] MEDS: Finasteride 5 MG Tablet PO (09:04)
[2025-01-03] MEDS: Senna/Docusate Sodium 1 Tablet 2 TABLET PO ×2 (09:04→21:44)
[2025-01-03] MEDS: Pantoprazole Sodium 20 MG Tablet PO (09:04)
[2025-01-03] MEDS: busPIRone 5 MG Tablet PO ×2 (09:04→21:39)
[2025-01-03] MEDS: Ranolazine 500 MG Tablet PO ×2 (09:04→21:44)
[2025-01-03] MEDS: Tamsulosin HCl 0.4 MG Capsule PO ×2 (09:04→21:44)
[2025-01-03] MEDS: Ascorbic Acid 500 MG Tablet PO ×2 (09:05→17:20)
[2025-01-03] MEDS: MENTHOL 226.8 GM JAR 1 APPLIC TOPICAL ×2 (13:04→21:46)
[2025-01-03 20:00] VITALS: PULSE 60; O2SAT 96
[2025-01-03] MEDS: 0.9% Saline Lock 10 ML Syringe IV (21:37)
[2025-01-03] MEDS: traZODone 50 MG Tablet 25 MG PO (21:42)
[2025-01-03] MEDS: Ferrous Sulfate 325 MG Tablet PO (21:43)
[2025-01-03] MEDS: Atorvastatin Calcium 40 MG Tablet PO (21:44)
[2025-01-03] MEDS: Cholecalciferol (VIT D3) 25 MCG TABLET (1,000 UNITS) PO (21:45)
[2025-01-04 05:36] VITALS: BMI 19.1
[2025-01-04] MEDS: Levothyroxine 50 MCG Tablet PO (05:58)
[2025-01-04] MEDS: Furosemide 40 MG Tablet PO ×2 (05:58→13:52)
[2025-01-04 06:53] VITALS: PULSE 64; O2SAT 96
[2025-01-04] MEDS: Finasteride 5 MG Tablet PO (09:08)
[2025-01-04] MEDS: busPIRone 5 MG Tablet PO ×2 (09:08→21:49)
[2025-01-04] MEDS: Pantoprazole Sodium 20 MG Tablet PO (09:08)
[2025-01-04] MEDS: Ascorbic Acid 500 MG Tablet PO ×2 (09:08→17:45)
[2025-01-04] MEDS: Ranolazine 500 MG Tablet PO ×2 (09:08→21:51)
[2025-01-04] MEDS: Loratadine 10 MG Tablet PO (09:08)
[2025-01-04] MEDS: Tamsulosin HCl 0.4 MG Capsule PO ×2 (09:08→21:48)
[2025-01-04] MEDS: Senna/Docusate Sodium 1 Tablet 2 TABLET PO ×2 (09:33→21:49)
[2025-01-04] MEDS: 0.9% Saline Lock 10 ML Syringe IV (13:52)
[2025-01-04 14:41] VITALS: BP 150/83; PULSE 60; RESP 20; TEMP 36.8; O2SAT 94
[2025-01-04] MEDS: Atorvastatin Calcium 40 MG Tablet PO (21:50)
[2025-01-04] MEDS: traZODone 50 MG Tablet 25 MG PO (21:50)
[2025-01-04] MEDS: Ferrous Sulfate 325 MG Tablet PO (21:50)
[2025-01-04] MEDS: Cholecalciferol (VIT D3) 25 MCG TABLET (1,000 UNITS) PO (21:51)
[2025-01-04] MEDS: Acetaminophen 500 MG Tablet 1000 MG PO (23:39)
[2025-01-04] MEDS: MENTHOL 226.8 GM JAR 1 APPLIC TOPICAL (23:41)
[2025-01-05 04:47] VITALS: BP 127/69; PULSE 60; O2SAT 98; BMI 19.7
[2025-01-05] MEDS: Levothyroxine 50 MCG Tablet PO (04:49)
[2025-01-05] MEDS: Furosemide 40 MG Tablet PO ×2 (04:49→13:15)
[2025-01-05] MEDS: Tamsulosin HCl 0.4 MG Capsule PO ×2 (09:28→21:47)
[2025-01-05] MEDS: busPIRone 5 MG Tablet PO ×2 (09:28→21:45)
[2025-01-05] MEDS: Ascorbic Acid 500 MG Tablet PO ×2 (09:28→17:52)
[2025-01-05] MEDS: Finasteride 5 MG Tablet PO (09:28)
[2025-01-05] MEDS: Pantoprazole Sodium 20 MG Tablet PO (09:29)
[2025-01-05] MEDS: Ranolazine 500 MG Tablet PO ×2 (09:29→21:46)
[2025-01-05] MEDS: Senna/Docusate Sodium 1 Tablet 2 TABLET PO ×2 (09:29→21:46)
[2025-01-05 10:00] VITALS: BP 145/87; PULSE 61; RESP 20; TEMP 36.3; O2SAT 93
[2025-01-05] MEDS: Mag Hydrox/Al Hydrox/Simeth 30 ML UDC 15 ML PO (19:00)
[2025-01-05] MEDS: Atorvastatin Calcium 40 MG Tablet PO (21:47)
[2025-01-05] MEDS: Cholecalciferol (VIT D3) 25 MCG TABLET (1,000 UNITS) PO (21:48)
[2025-01-05] MEDS: traZODone 50 MG Tablet 25 MG PO (21:48)
[2025-01-05] MEDS: Ferrous Sulfate 325 MG Tablet PO (21:49)
[2025-01-06] MEDS: Acetaminophen 500 MG Tablet 1000 MG PO ×2 (00:56→22:57)
[2025-01-06] MEDS: MENTHOL 226.8 GM JAR 1 APPLIC TOPICAL ×2 (00:58→22:53)
[2025-01-06] MEDS: Levothyroxine 50 MCG Tablet PO (05:40)
[2025-01-06] MEDS: Furosemide 40 MG Tablet PO ×2 (05:41→13:33)
[2025-01-06 05:44] VITALS: BP 144/85; PULSE 60; O2SAT 98
[2025-01-06 05:57] VITALS: BMI 19.2
[2025-01-06] MEDS: Mag Hydrox/Al Hydrox/Simeth 30 ML UDC 15 ML PO (08:54)
[2025-01-06] MEDS: Senna/Docusate Sodium 1 Tablet 2 TABLET PO ×2 (08:58→21:30)
[2025-01-06] MEDS: Tamsulosin HCl 0.4 MG Capsule PO ×2 (08:59→21:30)
[2025-01-06] MEDS: Pantoprazole Sodium 20 MG Tablet PO (08:59)
[2025-01-06] MEDS: busPIRone 5 MG Tablet PO ×2 (08:59→21:31)
[2025-01-06] MEDS: Finasteride 5 MG Tablet PO (09:00)
[2025-01-06] MEDS: Ranolazine 500 MG Tablet PO ×2 (09:00→21:30)
[2025-01-06] MEDS: Ascorbic Acid 500 MG Tablet PO ×2 (09:00→16:23)
[2025-01-06] MEDS: Loratadine 10 MG Tablet PO (09:01)
[2025-01-06 09:08] VITALS: BP 148/76; PULSE 60; RESP 18; TEMP 37.4; O2SAT 98
[2025-01-06 09:51] VITALS: TEMP 36.6
[2025-01-06] MEDS: 0.9% Saline Lock 10 ML Syringe IV (13:34)
[2025-01-06 13:43] VITALS: BP 149/76; PULSE 60
[2025-01-06] MEDS: Cholecalciferol (VIT D3) 25 MCG TABLET (1,000 UNITS) PO (21:31)
[2025-01-06] MEDS: traZODone 50 MG Tablet 25 MG PO (21:32)
[2025-01-06] MEDS: Atorvastatin Calcium 40 MG Tablet PO (21:35)
[2025-01-06] MEDS: Ferrous Sulfate 325 MG Tablet PO (21:38)
[2025-01-07 06:00] VITALS: BMI 18.7
[2025-01-07] MEDS: Levothyroxine 50 MCG Tablet PO (06:26)
[2025-01-07] MEDS: Furosemide 40 MG Tablet PO ×2 (06:26→16:12)
[2025-01-07 07:37] VITALS: O2SAT 99
[2025-01-07] MEDS: Pantoprazole Sodium 20 MG Tablet PO (09:17)
[2025-01-07] MEDS: Ranolazine 500 MG Tablet PO ×2 (09:18→21:45)
[2025-01-07] MEDS: Tamsulosin HCl 0.4 MG Capsule PO ×2 (09:18→21:45)
[2025-01-07] MEDS: Finasteride 5 MG Tablet PO (09:18)
[2025-01-07] MEDS: Ascorbic Acid 500 MG Tablet PO (09:18)
[2025-01-07] MEDS: Senna/Docusate Sodium 1 Tablet 2 TABLET PO ×2 (09:18→21:46)
[2025-01-07] MEDS: busPIRone 5 MG Tablet PO ×2 (09:19→21:43)
[2025-01-07] MEDS: Ondansetron ODT 4 MG Tablet 8 MG PO (10:54)
[2025-01-07 12:53] VITALS: BP 126/80; PULSE 60; RESP 16; TEMP 36.8; O2SAT 95
[2025-01-07] MEDS: 0.9% Saline Lock 10 ML Syringe IV (21:40)
[2025-01-07] MEDS: traZODone 50 MG Tablet 25 MG PO (21:44)
[2025-01-07] MEDS: Ferrous Sulfate 325 MG Tablet PO (21:45)
[2025-01-07] MEDS: Atorvastatin Calcium 40 MG Tablet PO (21:45)
[2025-01-07] MEDS: Cholecalciferol (VIT D3) 25 MCG TABLET (1,000 UNITS) PO (21:46)
[2025-01-08] MEDS: Furosemide 40 MG Tablet PO ×2 (05:08→13:21)
[2025-01-08] MEDS: Pantoprazole Sodium 20 MG Tablet PO (05:08)
[2025-01-08] MEDS: Levothyroxine 50 MCG Tablet PO (05:08)
[2025-01-08 05:12] VITALS: BMI 18.8
[2025-01-08 05:21] LABS: Absolute Lymphocyte Count 0.66 X10^3/uL (0.83-4.51); Absolute Neutrophil Count 6.4 X10^3/uL (2.0-7.7); Basophil# 0.06 X10^3/uL; Basophil% 0.8 % (0-1); Eosinophil# 0.18 X10^3/uL; Eosinophils% 2.3 % (0-5); Hematocrit 30.5 % (40-54); Lymphocyte # 0.66 X10^3/ul (0.83-4.51); Lymphocyte % 8.3 % (19-41); Mean Corp Hgb Conc 32.8 g/dL (32-36); Mean Corpuscular Volume 109.7 fL (80-94); Mean Platelet Vol. 10.2 fl (6.2-12.0); Monocyte# 0.61 X10^3/uL; Monocyte% 7.7 % (0-10); NRBC Flagged by Analyzer 0 % (0-5); Neutrophil # 6.35 X10^3/uL (2.7-7.7); Neutrophil % 80.1 % (47-70); POSITIVE MORPHOLOGY YES; Platelet Count 166 K/mm3 (150-450); RBC Distribution Width CV 16.5 % (11.6-14.6); RBC Distribution Width SD 67.4 fl (35.1-43.9); Red Blood Count 2.78 M/mm3 (4.6-6.2); White Blood Count 7.9 K/mm3 (4.4-11.0)
[2025-01-08 05:22] LABS: Differential Indicated SCAN CRITERIA MET
[2025-01-08 05:58] LABS: Anisocytosis 2+; Differential Comment SCANNED; Ovalocyte 1+; Platelet Estimate ADEQUATE (ADEQ)
[2025-01-08 06:05] LABS: Anion Gap 11 (5-15); BUN 41 mg/dL (4-19); Calcium,Total 8.4 mg/dL (7.6-11.0); Carbon Dioxide 26.6 mmol/L (21.0-32.0); Chloride 105 mmol/L (98-108); EST Glomerular Filtration Rate 27 (>60); Estimated Creatinine Clearance 19.39 ml/min (50-250); Glucose 85 mg/dL (70-99); Potassium 3.6 mmol/L (3.3-5.1); Sodium Level 143 mmol/L (133-145)
[2025-01-08 06:58] VITALS: O2SAT 95
[2025-01-08 08:54] VITALS: BP 143/73; PULSE 61; RESP 18; TEMP 36.6; O2SAT 95
[2025-01-08] MEDS: busPIRone 5 MG Tablet PO ×2 (08:57→21:28)
[2025-01-08] MEDS: Ascorbic Acid 500 MG Tablet PO (08:57)
[2025-01-08] MEDS: Loratadine 10 MG Tablet PO (08:58)
[2025-01-08] MEDS: Senna/Docusate Sodium 1 Tablet 2 TABLET PO ×2 (08:58→21:29)
[2025-01-08] MEDS: Finasteride 5 MG Tablet PO (08:58)
[2025-01-08] MEDS: Ranolazine 500 MG Tablet PO ×2 (08:58→21:26)
[2025-01-08] MEDS: Tamsulosin HCl 0.4 MG Capsule PO ×2 (08:58→21:26)
[2025-01-08 13:18] VITALS: BP 116/62; PULSE 60
--- NOTE | 2025-01-08 17:39 | NURSING ---
Signed order by Dr. Samuel for sleep study faxed to sleep center.
[2025-01-08 21:23] VITALS: PULSE 60; O2SAT 90
[2025-01-08] MEDS: Atorvastatin Calcium 40 MG Tablet PO (21:26)
[2025-01-08] MEDS: traZODone 50 MG Tablet 25 MG PO (21:27)
[2025-01-08] MEDS: Ferrous Sulfate 325 MG Tablet PO (21:29)
[2025-01-08] MEDS: Cholecalciferol (VIT D3) 25 MCG TABLET (1,000 UNITS) PO (21:29)
--- NOTE | 2025-01-08 21:40 | NURSING ---
Patient accepted prune juice with butter for c/o constipation.
[2025-01-08] MEDS: MENTHOL 226.8 GM JAR 1 APPLIC TOPICAL (23:55)
[2025-01-08] MEDS: Acetaminophen 500 MG Tablet 1000 MG PO (23:59)
[2025-01-09 04:56] VITALS: BMI 19.1
[2025-01-09] MEDS: Furosemide 40 MG Tablet PO ×2 (05:02→13:57)
[2025-01-09] MEDS: Levothyroxine 50 MCG Tablet PO (05:02)
[2025-01-09] MEDS: Pantoprazole Sodium 20 MG Tablet PO (05:03)
[2025-01-09] MEDS: Tamsulosin HCl 0.4 MG Capsule PO ×2 (08:59→20:45)
[2025-01-09] MEDS: Ranolazine 500 MG Tablet PO ×2 (08:59→20:45)
[2025-01-09] MEDS: busPIRone 5 MG Tablet PO ×2 (08:59→20:44)
[2025-01-09] MEDS: Senna/Docusate Sodium 1 Tablet 2 TABLET PO ×2 (09:00→20:46)
[2025-01-09] MEDS: Finasteride 5 MG Tablet PO (09:00)
[2025-01-09] MEDS: Ascorbic Acid 500 MG Tablet PO ×2 (09:00→16:23)
[2025-01-09 09:02] VITALS: BP 149/79; PULSE 60; RESP 16; TEMP 36.4; O2SAT 94
--- NOTE | 2025-01-09 13:50 | CASEMGMT ---
Social Work- SW met with pt to conduct BIMS assessment; pt scored 15/15. Pt scored 0/2 on PHQ9. Pt pleasant and cooperative in demeanor during discussion. Pt reports no needs at this time. LEEANN Levy
[2025-01-09] MEDS: MENTHOL 226.8 GM JAR 1 APPLIC TOPICAL (16:23)
[2025-01-09] MEDS: Mag Hydrox/Al Hydrox/Simeth 30 ML UDC 15 ML PO (17:15)
[2025-01-09] MEDS: Ondansetron ODT 4 MG Tablet 8 MG PO (18:19)
[2025-01-09] MEDS: Atorvastatin Calcium 40 MG Tablet PO (20:44)
[2025-01-09] MEDS: Ferrous Sulfate 325 MG Tablet PO (20:44)
[2025-01-09] MEDS: traZODone 50 MG Tablet 25 MG PO (20:45)
[2025-01-09] MEDS: Cholecalciferol (VIT D3) 25 MCG TABLET (1,000 UNITS) PO (20:46)
[2025-01-09 20:52] VITALS: BP 141/82; PULSE 60
[2025-01-09 20:57] VITALS: PULSE 61; RESP 16; O2SAT 98
[2025-01-10 06:00] VITALS: BMI 18.6
[2025-01-10] MEDS: Levothyroxine 50 MCG Tablet PO (06:02)
[2025-01-10] MEDS: Furosemide 40 MG Tablet PO ×2 (06:02→13:37)
[2025-01-10] MEDS: Pantoprazole Sodium 20 MG Tablet PO (06:02)
[2025-01-10 06:11] VITALS: BP 141/81; PULSE 61; RESP 16
[2025-01-10 06:12] VITALS: PULSE 61; RESP 16; O2SAT 98
[2025-01-10] MEDS: busPIRone 5 MG Tablet PO ×2 (09:47→19:48)
[2025-01-10] MEDS: Senna/Docusate Sodium 1 Tablet 2 TABLET PO ×2 (09:47→19:47)
[2025-01-10] MEDS: Ascorbic Acid 500 MG Tablet PO ×2 (09:47→17:45)
[2025-01-10] MEDS: Ranolazine 500 MG Tablet PO ×2 (09:48→19:48)
[2025-01-10] MEDS: Finasteride 5 MG Tablet PO (09:48)
[2025-01-10] MEDS: Loratadine 10 MG Tablet PO (09:48)
[2025-01-10] MEDS: Tamsulosin HCl 0.4 MG Capsule PO ×2 (09:48→19:47)
[2025-01-10 09:50] VITALS: BP 121/65; PULSE 60; RESP 16; TEMP 36.4; O2SAT 95
[2025-01-10 13:39] VITALS: BP 117/59; PULSE 60
[2025-01-10] MEDS: Acetaminophen 500 MG Tablet 1000 MG PO (19:46)
[2025-01-10] MEDS: Atorvastatin Calcium 40 MG Tablet PO (19:47)
[2025-01-10] MEDS: traZODone 50 MG Tablet 25 MG PO (19:47)
[2025-01-10] MEDS: Cholecalciferol (VIT D3) 25 MCG TABLET (1,000 UNITS) PO (19:48)
[2025-01-10] MEDS: Ferrous Sulfate 325 MG Tablet PO (19:48)
[2025-01-10 20:00] VITALS: BP 127/71; PULSE 60; RESP 16; TEMP 36.7; O2SAT 93
--- NOTE | 2025-01-10 20:18 | NURSING ---
discharged to sleep lab at this time per order with personal belongings and discharge paperwork.
== END 2025-01-10 20:18 | disposition home health service (06) | DRG 377 ==
PROVIDERS: Admitting Provider Family Medicine Geriatric Medicine; PCP Family Medicine; Visit Provider Family Medicine Geriatric Medicine
DX: K31.811 Angiodysplasia of stomach and duodenum with bleeding (principal); I21.4 Non-ST elevation (NSTEMI) myocardial infarction; I13.0 Hypertensive heart and chronic kidney disease with heart failure and stage 1 through stage 4 chronic kidney disease, or unspecified chronic kidney disease; I50.32 Chronic diastolic (congestive) heart failure; Z68.1 Body mass index [BMI] 19.9 or less, adult; I27.21 Secondary pulmonary arterial hypertension; J43.9 Emphysema, unspecified; N18.32 Chronic kidney disease, stage 3b; D50.9 Iron deficiency anemia, unspecified; E03.9 Hypothyroidism, unspecified; K25.9 Gastric ulcer, unspecified as acute or chronic, without hemorrhage or perforation; I48.0 Paroxysmal atrial fibrillation; E87.6 Hypokalemia; E78.00 Pure hypercholesterolemia, unspecified; E55.9 Vitamin D deficiency, unspecified; I25.10 Atherosclerotic heart disease of native coronary artery without angina pectoris; G47.33 Obstructive sleep apnea (adult) (pediatric); K21.9 Gastro-esophageal reflux disease without esophagitis; K44.9 Diaphragmatic hernia without obstruction or gangrene; F41.9 Anxiety disorder, unspecified; K31.819 Angiodysplasia of stomach and duodenum without bleeding; Z95.5 Presence of coronary angioplasty implant and graft; G47.00 Insomnia, unspecified; Z95.0 Presence of cardiac pacemaker; Z79.890 Hormone replacement therapy; N40.0 Benign prostatic hyperplasia without lower urinary tract symptoms; K57.31 Diverticulosis of large intestine without perforation or abscess with bleeding; R63.6 Underweight
CPT/HCPCS: 36415; 36430; 80048; 82274; 82306; 83880; 85014; 85018; 85025; 86850; 86900; 86901; 94002; 94003; 94762; 97110; 97116; 97162; 97166; 97530; 97535; 97802; P9016; A4216; J1938

== ENCOUNTER 2024-12-28 14:50 | Day surgery (SDC) | payer MEDICARE, OTHER, SELFPAY ==
[2024-12-28] VITALS (7 sets, daily range): BP systolic 116–132; BP diastolic 68–88; PULSE 58–62; RESP 16–18; TEMP 36.3–36.5; O2SAT 90–99; BMI 19.0
--- NOTE | 2024-12-28 14:47 | PCM.PRE.AN2 ---
ASA Classification* ASA Classification ASA Classification: 3 Assessment & Plan Anesthesia* Anesthesia Assessment Anesthesia Assessment: Discussed sedation and/or anesthesia options, risks, benefits, and alternatives with patient/parents/legal guardian/POA. Questions invited. The patient/parents/legal guardian/POA seems to understand and agrees to proceed with anesthesia plan. Reviewed the physical assessment, medical history, allergy history and patient home medications list prior to surgery/procedure/anesthetic and documented any changes. Performed airway and anesthesia risk assessments. Anesthesia Type Anesthesia Type: MAC Anesthesia Focused Assessment* Airway Assessment Mouth opens: >3 cm Mallampati Score: II Focused Labs Anesthesia Preop lab: CBC WBC 10.3 K/mm3 (4.4-11.0) 12/25/24 05:18 12/25/24 RBC 2.11 M/mm3 (4.6-6.2) L 12/25/24 05:18 12/25/24 Hgb 7.9 g/dL (13.0-16.5) L 12/27/24 05:12 12/27/24 Hct 24.0 % (40-54) L 12/27/24 05:12 12/27/24 Plt Count 282 K/mm3 (150-450) 12/25/24 05:18 12/25/24 CHEMISTRY Potassium 4.1 mmol/L (3.3-5.1) 12/25/24 05:18 12/25/24 Sodium 141 mmol/L (133-145) 12/25/24 05:18 12/25/24 Magnesium 2.2 mg/dL (1.5-2.2) 12/14/24 06:45 12/14/24 Phosphorus 3.6 mg/dL (2.5-4.9) 03/17/24 06:23 03/17/24 BUN 39 mg/dL (4-19) H 12/25/24 05:18 12/25/24 Creatinine 2.95 mg/dL (0.70-1.20) H 12/25/24 05:18 12/25/24 Glucose 90 mg/dL (70-99) 12/25/24 05:18 12/25/24 POC Glucose 88 mg/dL (74-106) 05/01/24 06:28 05/01/24 TSH 2.720 uIU/mL (0.300-4.200) 12/06/24 03:38 12/06/24 COAG PT 16.5 SECONDS (11.7-14.9) H 12/10/24 03:50 12/10/24 INR 5.5 H* 03/22/22 15:57 03/22/22 Pre-Assessment Diagnosis/Proposed Procedure Planned Operative Procedure(s): EGD Anesthesia History 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 When Was Last Pacemaker Check QUESTION #4 FULL TEXT: You/Your Family Experience fever (hyperthermia) with Anesthesia Last Oral Intake Last Oral intake: Last Oral Intake NPO since Meds taken in AM with sips of water? Meds patient instructed to take am of surgery PONV PONV - plastic tile layer: PONV - plastic tile layer Female HX of Motion Sickness HX of N/V After Surgery Non-Smoker Duration of Surgery greater than 60 minutes Number of Risk Factors PONV Score Height & Weight Height & Weight: Anesthesia: Height & Weight Height 5 ft 8 in 12/26/24 12:19 Respiratory Assessment Respiratory Assessment - plastic tile layer: Respiratory Tract Infection Hx - plastic tile layer Hx Respiratory Tract Infection No 12/06/24 05:14 STOP Sleep Apnea STOP Sleep Apnea - plastic tile layer: STOP Sleep Apnea - plastic tile layer Hx Hypertension Yes 12/18/24 13:02 Hx Sleep Apnea No 12/17/24 20:00 CPAP No: In process of getting 12/04/24 12:11 one BIPAP No 12/04/24 12:11 Do you snore loudly (louder than talking or can be heard Do you often feel tired/ fatigued/ sleepy during daytime? Has anyone observed you stop breathing during sleep? STOP Results QUESTION #5 FULL TEXT : Do you snore loudly (louder than talking or can be heard through closed doors)? 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 Specify any problems Hx of Preganancy in last 3 Months Nurse Filling Out Transfusion & Questions: Date: Time: Patient unable to answer at this time (ie. confused, unrespo /Reproduction History /Reproductive History - plastic tile layer: /Reproductive Hx- plastic tile layer Hx Now Gestational Age (in weeks): EDC: Hx Hx Para Hx Section SAB No 12/06/24 05:14 [facility] Medical History Angiodysplasia of stomach Acute respiratory failure Elevated troponin Bright red blood per rectum History of atrial fibrillation Chronic kidney disease Acute lower GI bleeding Atrial fibrillation Bradycardia CKD (chronic kidney disease) stage 4, GFR 15-29 ml/min Acute on chronic heart failure with reduced ejection fraction and diastolic dysfunction Pulmonary hypertension Combined systolic and diastolic congestive heart failure Iron deficiency anemia Coronary artery disease 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 Complete heart 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 Intermittent complete heart block History of atrial fibrillation COPD (chronic obstructive pulmonary disease) with emphysema CHF (congestive heart failure) Hypoxia Chronic kidney disease Chronic anticoagulation Acute dyspnea Acute kidney injury Hypotension Abnormal abdominal ultrasound Persistent atrial fibrillation Hearing loss, left Hearing loss, right Anxiety Chronic pain Rheumatoid arthritis COPD (chronic obstructive pulmonary disease) Irregular heart beat Hypertension Hypothyroidism Hiatal hernia Acute constipation Acute exacerbation of chronic low back pain Wears glasses Thyroid disease Ambulates with cane Arthritis History of renal disease Anemia High cholesterol Easy bruising Excessive bleeding History of leukemia Back pain Difficulty chewing History of diverticulitis Gastric reflux Sleep apnea History of pain when walking History of edema History of echocardiogram History of stress test Cardiology follow-up encounter History of heart attack Nausea and vomiting Chronic anemia Diarrhea Colitis Sleep apnea Acute kidney injury superimposed on chronic kidney disease On amiodarone therapy Elevated LFTs Thoracic aortic aneurysm (TAA) Chronic heart failure with preserved ejection fraction (HFpEF) Nonrheumatic mitral (valve) insufficiency Atypical atrial flutter (12/2020) Elevated liver enzymes Debility Dysphagia Osteoarthritis History of colon polyps Cancer Kidney stones Kidney disease Non-smoker CPAP (continuous positive airway pressure) dependence Atrial fibrillation Myocardial infarct Chronic renal insufficiency Acute gastrointestinal bleeding Chronic kidney disease Benign prostatic hyperplasia Stage 3b chronic kidney disease GI bleed (2012) Non-rheumatic tricuspid valve insufficiency Secondary pulmonary arterial hypertension Essential (primary) hypertension BPH (benign prostatic hyperplasia) History of hyperthyroidism Paroxysmal atrial fibrillation 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 heart disease of [place] coronary artery without angina pectoris HLD (hyperlipidemia) Home Medications ?Medication ?Instructions ?Recorded ?Last Taken ?Type tamsulosin 0.4 mg capsule 0.4 mg PO BID PROSTATE 11/18/21 12/27/24 History ascorbic acid (vitamin C) 500 mg 500 mg PO BID SUPPLEMENT 07/20/22 12/27/24 History tablet finasteride 5 mg tablet 5 mg PO DAILY PROSTATE 08/05/22 12/27/24 History cholecalciferol (vitamin D3) 25 1,000 unit PO QHS SUPPLEMENT 02/19/23 12/27/24 History mcg (1,000 unit) capsule (Vitamin D3) trazodone 50 mg tablet 25 mg PO QHS INSOMNIA 02/28/24 12/27/24 History ferrous sulfate 325 mg (65 mg 325 mg PO QHS ANEMIA 03/20/24 12/27/24 History iron) tablet (Feosol) levothyroxine 50 mcg tablet 50 mcg PO DAILY THYROID 03/20/24 12/27/24 History pantoprazole 20 mg tablet,delayed 20 mg PO DAILY Gerd 08/28/24 12/28/24 History release acetaminophen 500 mg tablet 1,000 mg PO Q6H PRN pain 12/04/24 12/27/24 History (Acetaminophen Extra Strength) albuterol sulfate 2.5 mg/3 mL 2.5 mg (3 mL) inhalation Q2H PRN 12/17/24 Unknown Rx (0.083 %) solution for nebulization PRN SOB &/OR WHEEZING #0 mL aluminum-mag hydroxide-simethicone 15 ml PO Q4H PRN PRN Indigestion 12/17/24 Unknown Rx 400 mg-400 mg-40 mg/5 mL oral susp #0 mL (Mag-Al Plus Extra Strength) atorvastatin 40 mg tablet 40 mg PO QHS cholesterol #0 tabs 12/17/24 12/27/24 Rx melatonin 3 mg tablet 3 mg PO QHS PRN PRN Insomnia #0 12/17/24 Unknown Rx tabs menthol 2 % topical gel (Blue Gel) 1 applic topical TID PRN PRN 12/17/24 12/27/24 Rx Arthritis Pain 1-10 #0 grams nitroglycerin 0.4 mg sublingual 0.4 mg sublingual Q5M PRN 12/17/24 Unknown Rx tablet Cardiac/Chest Pain #0 tabs ranolazine 500 mg tablet,extended 500 mg PO BID heart health #0 tabs 12/17/24 12/28/24 Rx release,12 hr sennosides 8.6 mg-docusate sodium 2 tab PO BID constipation #0 tabs 12/17/24 12/27/24 Rx 50 mg tablet (Stimulant Laxative Plus) aluminum-mag hydroxide-simethicone 15 ml PO Q4H PRN indigestion 12/28/24 Unknown History 400 mg-400 mg-40 mg/5 mL oral susp (Mag-Al Plus Extra Strength) buspirone 5 mg tablet 5 mg PO BID 12/28/24 12/27/24 History furosemide 80 mg tablet (Lasix) 40 mg PO DAILY heart 12/28/24 12/27/24 History loratadine 10 mg tablet (Claritin) 10 mg PO .q48 12/28/24 12/27/24 History Allergy/AdvReac Type Severity Reaction Status Date / Time diclofenac Allergy rash Verified 12/04/24 07:22 prednisone Allergy Rash Verified 12/04/24 07:22 Family History Father Cancer Prostate cancer Mother Hypertension Sister Hypertension Surgical History History of colonoscopy (03/26/24) History of back surgery History of cardiac catheterization History of esophagogastroduodenoscopy (EGD) History of cardioversion (06/18/19) History of radiofrequency ablation procedure for cardiac arrhythmia (11/11/11) History of electrophysiologic study (08/08/00) History of left heart catheterization (07/17/12) History of hemorrhoidectomy History of Zenaida fundoplication History of coronary artery stent placement (08/04/00) History of hernia repair History of back surgery Social History household members: none Smoking Status: Never smoker alcohol intake: never substance use type: does not use caffeine: No Review of Systems (Anesthesia) ROS Narrative System reviewed and no additional complaints, except as documented.
[2024-12-28] MEDS: Lactated Ringers 1,000 ML 15 ML IV (15:15)
--- NOTE | 2024-12-28 16:14 | PCM.HP.STD ---
[facility] - General General Date of Admission: 12/28/24 Date of Service: 12/28/24 Chief Complaint: GI bleed [facility] Narrative RICHIE HANSEN, is a 84 M who presents for an EGD due to recent decrease in hemoglobin. He recently underwent an upper endoscopy was discovered to have bleeding in his small bowel. It was treated endoscopically. However his hemoglobin has gone back down requiring blood transfusions. He also recently was diagnosed with non-ST segment elevation MA. Nonstemi He had cardiac cath which showed EF of 60% and normal left ventricular wall motion and systolic function with previously placed stent in the mid LAD with 40 to 50% stenosis in second diagonal vessel with 90% proximal stenosis and a small vessel with mild diffuse distal disease present. Circumflex artery showed mild luminal irregularities less than 30% and RCA showed large dominant vessel with mild proximal disease and mild to moderate distal segment disease. He had pacemaker insertion on 12/11/2024 cardiology on board 2D echo showed EF of 60% with severely enlarged left atrium and moderately severe 3+ tricuspid valve insufficiency and severe pulmonary hypertension [facility] Medical History Angiodysplasia of stomach Acute respiratory failure Elevated troponin Bright red blood per rectum History of atrial fibrillation Chronic kidney disease Acute lower GI bleeding Atrial fibrillation Bradycardia CKD (chronic kidney disease) stage 4, GFR 15-29 ml/min Acute on chronic heart failure with reduced ejection fraction and diastolic dysfunction Pulmonary hypertension Combined systolic and diastolic congestive heart failure Iron deficiency anemia Coronary artery disease 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 Complete heart 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 Intermittent complete heart block History of atrial fibrillation COPD (chronic obstructive pulmonary disease) with emphysema CHF (congestive heart failure) Hypoxia Chronic kidney disease Chronic anticoagulation Acute dyspnea Acute kidney injury Hypotension Abnormal abdominal ultrasound Persistent atrial fibrillation Hearing loss, left Hearing loss, right Anxiety Chronic pain Rheumatoid arthritis COPD (chronic obstructive pulmonary disease) Irregular heart beat Hypertension Hypothyroidism Hiatal hernia Acute constipation Acute exacerbation of chronic low back pain Wears glasses Thyroid disease Ambulates with cane Arthritis History of renal disease Anemia High cholesterol Easy bruising Excessive bleeding History of leukemia Back pain Difficulty chewing History of diverticulitis Gastric reflux Sleep apnea History of pain when walking History of edema History of echocardiogram History of stress test Cardiology follow-up encounter History of heart attack Nausea and vomiting Chronic anemia Diarrhea Colitis Sleep apnea Acute kidney injury superimposed on chronic kidney disease On amiodarone therapy Elevated LFTs Thoracic aortic aneurysm (TAA) Chronic heart failure with preserved ejection fraction (HFpEF) Nonrheumatic mitral (valve) insufficiency Atypical atrial flutter (12/2020) Elevated liver enzymes Debility Dysphagia Osteoarthritis History of colon polyps Cancer Kidney stones Kidney disease Non-smoker CPAP (continuous positive airway pressure) dependence Atrial fibrillation Myocardial infarct Chronic renal insufficiency Acute gastrointestinal bleeding Chronic kidney disease Benign prostatic hyperplasia Stage 3b chronic kidney disease GI bleed (2012) Non-rheumatic tricuspid valve insufficiency Secondary pulmonary arterial hypertension Essential (primary) hypertension BPH (benign prostatic hyperplasia) History of hyperthyroidism Paroxysmal atrial fibrillation 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 heart disease of [place] coronary artery without angina pectoris HLD (hyperlipidemia) Home Medications ?Medication ?Instructions ?Recorded ?Last Taken ?Type tamsulosin 0.4 mg capsule 0.4 mg PO BID PROSTATE 11/18/21 12/27/24 History ascorbic acid (vitamin C) 500 mg 500 mg PO BID SUPPLEMENT 07/20/22 12/27/24 History tablet finasteride 5 mg tablet 5 mg PO DAILY PROSTATE 08/05/22 12/27/24 History cholecalciferol (vitamin D3) 25 1,000 unit PO QHS SUPPLEMENT 02/19/23 12/27/24 History mcg (1,000 unit) capsule (Vitamin D3) trazodone 50 mg tablet 25 mg PO QHS INSOMNIA 02/28/24 12/27/24 History ferrous sulfate 325 mg (65 mg 325 mg PO QHS ANEMIA 03/20/24 12/27/24 History iron) tablet (Feosol) levothyroxine 50 mcg tablet 50 mcg PO DAILY THYROID 03/20/24 12/27/24 History pantoprazole 20 mg tablet,delayed 20 mg PO DAILY Gerd 08/28/24 12/28/24 History release acetaminophen 500 mg tablet 1,000 mg PO Q6H PRN pain 12/04/24 12/27/24 History (Acetaminophen Extra Strength) albuterol sulfate 2.5 mg/3 mL 2.5 mg (3 mL) inhalation Q2H PRN 12/17/24 Unknown Rx (0.083 %) solution for nebulization PRN SOB &/OR WHEEZING #0 mL aluminum-mag hydroxide-simethicone 15 ml PO Q4H PRN PRN Indigestion 12/17/24 Unknown Rx 400 mg-400 mg-40 mg/5 mL oral susp #0 mL (Mag-Al Plus Extra Strength) atorvastatin 40 mg tablet 40 mg PO QHS cholesterol #0 tabs 12/17/24 12/27/24 Rx melatonin 3 mg tablet 3 mg PO QHS PRN PRN Insomnia #0 12/17/24 Unknown Rx tabs menthol 2 % topical gel (Blue Gel) 1 applic topical TID PRN PRN 12/17/24 12/27/24 Rx Arthritis Pain 1-10 #0 grams nitroglycerin 0.4 mg sublingual 0.4 mg sublingual Q5M PRN 12/17/24 Unknown Rx tablet Cardiac/Chest Pain #0 tabs ranolazine 500 mg tablet,extended 500 mg PO BID heart health #0 tabs 12/17/24 12/28/24 Rx release,12 hr sennosides 8.6 mg-docusate sodium 2 tab PO BID constipation #0 tabs 12/17/24 12/27/24 Rx 50 mg tablet (Stimulant Laxative Plus) aluminum-mag hydroxide-simethicone 15 ml PO Q4H PRN indigestion 12/28/24 Unknown History 400 mg-400 mg-40 mg/5 mL oral susp (Mag-Al Plus Extra Strength) buspirone 5 mg tablet 5 mg PO BID 12/28/24 12/27/24 History furosemide 80 mg tablet (Lasix) 40 mg PO DAILY heart 12/28/24 12/27/24 History loratadine 10 mg tablet (Claritin) 10 mg PO .q48 12/28/24 12/27/24 History Allergy/AdvReac Type Severity Reaction Status Date / Time diclofenac Allergy rash Verified 12/04/24 07:22 prednisone Allergy Rash Verified 12/04/24 07:22 Family History Father Cancer Prostate cancer Mother Hypertension Sister Hypertension Surgical History History of colonoscopy (03/26/24) History of back surgery History of cardiac catheterization History of esophagogastroduodenoscopy (EGD) History of cardioversion (06/18/19) History of radiofrequency ablation procedure for cardiac arrhythmia (11/11/11) History of electrophysiologic study (08/08/00) History of left heart catheterization (07/17/12) History of hemorrhoidectomy History of Zenaida fundoplication History of coronary artery stent placement (08/04/00) History of hernia repair History of back surgery Social History household members: none Smoking Status: Never smoker alcohol intake: never substance use type: does not use caffeine: No ROS Constitutional Constitutional: Denies fatigue, fever(s), poor appetite, weight gain or weight loss Gastrointestinal Gastrointestinal: Denies belching, bloating, change in bowel habits, change in stool character, chewing difficulty, coffee ground emesis, constipation, cramping, diarrhea, dyspepsia, dysphagia, early satiety, excessive flatus, fecal incontinence, heartburn, hematemesis, hematochezia, hemorrhoids, loose stools, melena, nausea, odynophagia, rectal bleeding, tenesmus, vomiting or weight changes Vital Signs Vital Signs Vital Signs: 12/28/24 14:57 12/28/24 14:57 Pulse Rate 58 L Respiratory Rate 18 Respiratory Pattern Normal Blood Pressure 132/88 H Blood Pressure Mean 102 Blood Pressure Source Monitor Blood Pressure Position Semi-Fowlers Blood Pressure Location Right Arm Pulse Ox 95 Weight Weight: 125 lb 3.561 oz Body Mass Index (BMI) 19.0 Physical Exam Const alert, oriented x3, no apparent distress and healthy appearing General Appearance: cooperative GI normal to inspection, nondistended, normoactive bowel sounds, soft to palpation, non-tender and non-distended Percussion: normal to percussion Rectal Exam: deferred Assessment & Plan Assessment/Plan (1) Elevated troponin: (2) Bright red blood per rectum: (3) Bradycardia: (4) Angiodysplasia: PLAN: Plan GI bleeding complained of bright red bleeding per rectum. had EGD which showed angiodysplastic lesion treated with a heater probe. Colonoscopy showed only stool and diverticulosis with some areas that looked like bleeding stigmata. HAS-BLED Score for Major Bleeding Risk : 5 Scores greater than 5 were too rare to determine risk, but are likely over 10%. Alternatives to anticoagulation should be considered: Patient is at very high risk for major bleeding. He will undergo an upper endoscopy. He was explained alternatives, risk and benefits clindamycin any bleeding, fracture, subsequent perforation, need for major to . Have an SAF 3.
--- NOTE | 2024-12-28 16:46 | PCM.POST.ANE ---
Anesthesia: Postop Eval I Current Vital Signs Temperature: 97.5 F Pulse Rate: 61 Blood Pressure: 116/70 Respiratory Rate: 16 Pulse Ox: 92 Assessment Airway patent: Yes Spontaneous unlabored respirations: Yes nausea: No Vomiting: No Anesthesia Complication: No Fluid Hydration Crystalloid volume administer (ml): 400 Total IV fluid infused: 400 Progress Note Anesthesia document: Postop Eval 1 completed: Yes
--- NOTE | 2024-12-28 16:53 | POSTOPAN2_ITS ---
Anesthesia Postop Eval I Sum Postop Eval Completion status Anesthesia document: Postop Eval 1 completed: Yes Anesthesia Postop Eval I Summary Anesthesia Postop Eval I Summary: Anesthesia Postop Eval I: Assessment Summary Airway patent Yes 12/28/24 16:47 PATTERN [email or web address] Spontaneous unlabored Yes 12/28/24 16:47 PATTERN [email or web address] respirations Mental status nausea No 12/28/24 16:47 PATTERN [email or web address] Vomiting No 12/28/24 16:47 PATTERN [email or web address] Anesthesia Postop Eval I: Fluid Summary Crystalloid volume administer 400 12/28/24 16:47 PATTERN [email or web address] (ml) Colloids volume administered ( ml) Blood Product volume administered (ml) Total IV fluid infused 400 12/28/24 16:47 PATTERN [email or web address] Anesthesia Postop Eval I: Summary Notes Anesthesia Complication No 12/28/24 16:47 PATTERN [email or web address] Anesthesia Complication Comment: Post-operative progress note Anesthesia: Postop Eval II Evaluation Mental status: Awake Pain Level: 0 nausea: No Vomiting: No
--- NOTE | 2024-12-28 16:53 | OP.EGD_ITS ---
Patient Name: Balbir Mckeon Procedure Date: 12/28/2024 2:08 PM Date of : 1940 Age: 84 Procedure: Upper GI endoscopy Indications: Acute post hemorrhagic anemia, Iron deficiency anemia, Occult blood in stool, Recent gastrointestinal bleeding, Suspected upper gastrointestinal bleeding, Suspected upper gastrointestinal bleeding in patient with chronic blood loss Providers: Mika Hodges DO Medicines: Monitored Anesthesia Care Patient Profile: This is an 84 year old male. Refer to note in patient chart for documentation of history and physical. Patient has symptoms. Complications: No immediate complications. Procedure: Pre-Anesthesia Assessment: - Prior to the procedure, a History and Physical was performed, and patient medications and allergies were reviewed. The patient is competent. The risks and benefits of the procedure and the sedation options and risks were discussed with the patient. All questions were answered and informed consent was obtained. Patient identification and proposed procedure were verified by the physician in the pre-procedure area. Mental Status Examination: alert and oriented. Airway Examination: normal oropharyngeal airway and neck mobility. Respiratory Examination: clear to auscultation. CV Examination: normal. Prophylactic Antibiotics: The patient does not require prophylactic antibiotics. Prior Anticoagulants: The patient has taken no anticoagulant or antiplatelet agents except for NSAID medication. ASA Grade Assessment: II - A patient with mild systemic disease. After reviewing the risks and benefits, the patient was deemed in satisfactory condition to undergo the procedure. The anesthesia plan was to use monitored anesthesia care (MAC). Immediately prior to administration of medications, the patient was re-assessed for adequacy to receive sedatives. The heart rate, respiratory rate, oxygen saturations, blood pressure, adequacy of pulmonary ventilation, and response to care were monitored throughout the procedure. The physical status of the patient was re-assessed after the procedure. After obtaining informed consent, the endoscope was passed under direct vision. Throughout the procedure, the patient's blood pressure, pulse, and oxygen saturations were monitored continuously. The Colonoscope was introduced through the mouth, and advanced to the jejunum. Small bowel enteroscopy was deemed necessary. The upper GI endoscopy was accomplished without difficulty. The patient tolerated the procedure well. Scope In: 4:22:56 PM Scope Out: 4:37:13 PM Total Procedure Duration Time 0 hours 14 minutes 17 seconds Findings: No gross lesions were noted in the entire esophagus. One non-bleeding cratered gastric ulcer with no stigmata of bleeding was found in the gastric body. The lesion was 10 mm in largest dimension. Coagulation for destruction of remaining portion of lesion using heater probe was successful. Estimated blood loss was minimal. No gross lesions were noted in the entire examined duodenum. Three 4 mm angiodysplastic lesions with bleeding were found in the jejunum. Coagulation for hemostasis using heater probe was successful. Estimated blood loss was minimal. Impression: - No gross lesions in the entire esophagus. - Non-bleeding gastric ulcer with no stigmata of bleeding. Treated with a heater probe. - No gross lesions in the entire examined duodenum. 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 Treated with a heater probe. - No specimens collected. Recommendation: - [facility]. - Resume previous diet. - Continue present medications. Procedure Code(s): --- Professional --- 09439, Small intestinal endoscopy, enteroscopy beyond second portion of duodenum, not including ileum; with ablation of tumor(s), polyp(s), or other lesion(s) not amenable to removal by hot biopsy forceps, bipolar cautery or snare technique 77640, 59,51, Small intestinal endoscopy, enteroscopy beyond second portion of duodenum, not including ileum; with control of bleeding (eg, injection, bipolar cautery, unipolar cautery, laser, heater probe, stapler, plasma telephone technician) CPT copyright 2021 [employer]. All rights reserved. The codes documented in this report are preliminary and upon four slide operator review may be revised to meet current compliance requirements. Mika Hodges DO 12/28/2024 4:53:22 PM This report has been signed electronically. Number of Addenda: 0 Note Initiated On: 12/28/2024 2:08 PM
--- NOTE | 2024-12-28 16:53 | PCM.POSTANE2 ---
Anesthesia Postop Eval I Sum Postop Eval Completion status Anesthesia document: Postop Eval 1 completed: Yes Anesthesia Postop Eval I Summary Anesthesia Postop Eval I Summary: Anesthesia Postop Eval I: Assessment Summary Airway patent Yes 12/28/24 16:47 [email or web address] Spontaneous unlabored Yes 12/28/24 16:47 [email or web address] respirations Mental status nausea No 12/28/24 16:47 [email or web address] Vomiting No 12/28/24 16:47 [email or web address] Anesthesia Postop Eval I: Fluid Summary Crystalloid volume administer 400 12/28/24 16:47 [email or web address] (ml) Colloids volume administered ( ml) Blood Product volume administered (ml) Total IV fluid infused 400 12/28/24 16:47 [email or web address] Anesthesia Postop Eval I: Summary Notes Anesthesia Complication No 12/28/24 16:47 [email or web address] Anesthesia Complication Comment: Post-operative progress note Anesthesia: Postop Eval II Evaluation Mental status: Awake Pain Level: 0 nausea: No Vomiting: No
--- NOTE | 2024-12-28 16:54 | OP.CCLET_ITS ---
12/28/2024 César Chinchilla [address] [place] [address] Re : Upper GI endoscopy procedure for Balbir Mckeon Dear Dr. Chinchilla This procedure was performed on Saturday, December 28, 2024. My impressions and recommendations are as follows: Impressions : - No gross lesions in the entire esophagus. - Non-bleeding gastric ulcer with no stigmata of bleeding. Treated with a heater probe. - No gross lesions in the entire examined duodenum. 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 Treated with a heater probe. - No specimens collected. Recommendations : - [facility]. - Resume previous diet. - Continue present medications. My findings are described in the full procedure note, which is enclosed. If I can be of further assistance, please feel free to contact me at . Sincerely, Mika Hodges, 12/28/2024 4:53:22 PM This report has been signed electronically.
== END 2024-12-28 17:18 | disposition skilled nursing facility (03) ==
LOC: EN 14:51 → AC 14:51
PROVIDERS: PCP Family Medicine; Referring Provider Family Medicine; Visit Provider Internal Medicine Gastroenterology
PROC: 0DJ08ZZ Inspection of Upper Intestinal Tract, Via Natural or Artificial Opening Endoscopic (ICD-10-PCS; CPT 43235; principal; 2024-12-28 15:55)
DX: K62.5 Hemorrhage of anus and rectum (principal); N18.4 Chronic kidney disease, stage 4 (severe); I13.0 Hypertensive heart and chronic kidney disease with heart failure and stage 1 through stage 4 chronic kidney disease, or unspecified chronic kidney disease; I50.43 Acute on chronic combined systolic (congestive) and diastolic (congestive) heart failure; J44.9 Chronic obstructive pulmonary disease, unspecified; I48.0 Paroxysmal atrial fibrillation; E78.00 Pure hypercholesterolemia, unspecified; K25.9 Gastric ulcer, unspecified as acute or chronic, without hemorrhage or perforation; D62 Acute posthemorrhagic anemia; R00.1 Bradycardia, unspecified; I25.2 Old myocardial infarction; I25.10 Atherosclerotic heart disease of native coronary artery without angina pectoris; Z95.0 Presence of cardiac pacemaker; Z99.89 Dependence on other enabling machines and devices; N40.0 Benign prostatic hyperplasia without lower urinary tract symptoms; E03.9 Hypothyroidism, unspecified; Z79.899 Other long term (current) drug therapy; Z79.890 Hormone replacement therapy; K21.9 Gastro-esophageal reflux disease without esophagitis; G47.30 Sleep apnea, unspecified; Z95.5 Presence of coronary angioplasty implant and graft; R79.89 Other specified abnormal findings of blood chemistry; K63.89 Other specified diseases of intestine
CPT/HCPCS: 44366; 44369; C1889; J2405

== ENCOUNTER → 2025-01-10 | Outpatient (CLI) | payer MEDICARE, OTHER, SELFPAY | END | disposition home or self-care (01) | LOC: SL 20:11 | PROVIDERS: PCP Family Medicine; Referring Provider Family Medicine Geriatric Medicine; Visit Provider Family Medicine Geriatric Medicine | DX: G47.33 Obstructive sleep apnea (adult) (pediatric) (principal); G47.31 Primary central sleep apnea | CPT/HCPCS: 95811 ==

== ENCOUNTER → 2025-01-18 | Outpatient (CLI) | payer MEDICARE, OTHER, SELFPAY ==
[2025-01-18 18:19] LABS: Absolute Lymphocyte Count 0.97 X10^3/uL (0.83-4.51); Absolute Neutrophil Count 7.1 X10^3/uL (2.0-7.7); Basophil# 0.07 X10^3/uL; Basophil% 0.8 % (0-1); Eosinophils% 1.1 % (0-5); Hematocrit 35.8 % (40-54); Hemoglobin 11.6 g/dL (13.0-16.5); Lymphocyte # 0.97 X10^3/ul (0.83-4.51); Lymphocyte % 10.7 % (19-41); Mean Corp Hgb Conc 32.4 g/dL (32-36); Mean Corpuscular Hgb 36.5 pg (27.0-32.0); Mean Corpuscular Volume 112.6 fL (80-94); Mean Platelet Vol. 10.2 fl (6.2-12.0); Monocyte# 0.74 X10^3/uL; Monocyte% 8.2 % (0-10); NRBC Flagged by Analyzer 0 % (0-5); Neutrophil # 7.13 X10^3/uL (2.7-7.7); Neutrophil % 78.9 % (47-70); POSITIVE MORPHOLOGY YES; Platelet Count 320 K/mm3 (150-450); RBC Distribution Width CV 17.3 % (11.6-14.6); RBC Distribution Width SD 72.5 fl (35.1-43.9); RET-HE 37.9 pg (30-35); Red Blood Count 3.18 M/mm3 (4.6-6.2); Reticulocyte Count 2.26 % (0.5-1.5)
[2025-01-18 18:30] LABS: Differential Indicated SCAN CRITERIA MET
[2025-01-18 18:31] LABS: ALB/GLOB Ratio 1.1 RATIO (0.9-2.4); AST(SGOT) 27 U/L (<=37); Alanine Aminotransfer ALT/SGPT 19 U/L (<=46); Albumin, Serum 4.2 g/dL (3.4-4.8); Alkaline Phosphatase 66 U/L (40-129); Anion Gap 15 (5-15); BUN 52 mg/dL (4-19); BUN/Creat Ratio 17.3 RATIO (10-20); Calcium,Total 9.3 mg/dL (7.6-11.0); Chloride 100 mmol/L (98-108); Creatinine, Serum 2.98 mg/dL (0.70-1.20); EST Glomerular Filtration Rate 20 (>60); Ferritin 273 ng/mL (37-417); Globulin 3.8 g/dL (2.2-4.2); Glucose 98 mg/dL (70-99); Potassium 4.5 mmol/L (3.3-5.1); Pro- Brain NATRIURETIC PEPTIDE 11657 pg/mL (<=1800); Sodium Level 140 mmol/L (133-145); Total Bilirubin 0.71 mg/dL (0.00-1.30)
[2025-01-18 19:38] LABS: Differential Comment SCANNED; Macrocytosis 2+; Polychromasia 2+; Red Cell Morphology N CHROM NORMAL (NORM C&C)
== END | disposition home or self-care (01) ==
LOC: MTLAB 15:30
PROVIDERS: PCP Family Medicine; Referring Provider Family Medicine; Visit Provider Family Medicine
DX: K92.2 Gastrointestinal hemorrhage, unspecified (principal); I50.30 Unspecified diastolic (congestive) heart failure
CPT/HCPCS: 36415; 80053; 82728; 83880; 85025; 85045

== ENCOUNTER → 2025-01-22 | Outpatient (CLI) | payer MEDICARE, OTHER, SELFPAY ==
[2025-01-24 14:08] LABS: H. PYLORI STOOL AG Negative (Negative)
== END | disposition home or self-care (01) ==
LOC: MFPLAB 11:23
PROVIDERS: PCP Family Medicine; Referring Provider Family Medicine; Visit Provider Family Medicine
DX: K92.2 Gastrointestinal hemorrhage, unspecified (principal); I50.30 Unspecified diastolic (congestive) heart failure
CPT/HCPCS: 87338

== ENCOUNTER 2025-01-29 12:46 | Outpatient (RCR) | payer MEDICARE, OTHER, SELFPAY | END 2025-02-25 23:59 | LOC: NS 12:46 | PROVIDERS: PCP Family Medicine; Referring Provider Family Medicine; Visit Provider Family Medicine | DX: Z71.3 Dietary counseling and surveillance (principal); N18.32 Chronic kidney disease, stage 3b | CPT/HCPCS: 97803 ==

== ENCOUNTER 2025-02-06 11:06 | Emergency (ER) | payer MEDICARE, OTHER, SELFPAY ==
[2025-02-06 11:07] VITALS: BP 122/61; PULSE 59; RESP 16; TEMP 36.4; O2SAT 99
== END 2025-02-06 13:22 | disposition left against medical advice (07) ==
LOC: ED 13:28
PROVIDERS: PCP Family Medicine
DX: R04.0 Epistaxis (principal)

== ENCOUNTER → 2025-02-18 | Outpatient (CLI) | payer MEDICARE, OTHER, SELFPAY ==
[2025-02-18 17:53] LABS: Absolute Lymphocyte Count 0.74 X10^3/uL (0.83-4.51); Absolute Neutrophil Count 10.7 X10^3/uL (2.0-7.7); Basophil# 0.02 X10^3/uL; Basophil% 0.2 % (0-1); Eosinophil# 0.06 X10^3/uL; Eosinophils% 0.5 % (0-5); Hematocrit 41.8 % (40-54); Hemoglobin 14.1 g/dL (13.0-16.5); Lymphocyte # 0.74 X10^3/ul (0.83-4.51); Mean Corp Hgb Conc 33.7 g/dL (32-36); Mean Corpuscular Hgb 36.9 pg (27.0-32.0); Mean Corpuscular Volume 109.4 fL (80-94); Mean Platelet Vol. 9.9 fl (6.2-12.0); Monocyte# 0.71 X10^3/uL; Monocyte% 5.8 % (0-10); NRBC Flagged by Analyzer 0 % (0-5); Neutrophil # 10.65 X10^3/uL (2.7-7.7); Neutrophil % 86.7 % (47-70); POSITIVE MORPHOLOGY YES; Platelet Count 274 K/mm3 (150-450); RBC Distribution Width CV 16.3 % (11.6-14.6); RBC Distribution Width SD 67.1 fl (35.1-43.9); Red Blood Count 3.82 M/mm3 (4.6-6.2); White Blood Count 12.3 K/mm3 (4.4-11.0)
[2025-02-18 17:55] LABS: Differential Indicated SCAN CRITERIA MET
[2025-02-18 18:29] LABS: ALB/GLOB Ratio 1.1 RATIO (0.9-2.4); AST(SGOT) 25 U/L (<=37); Alanine Aminotransfer ALT/SGPT 15 U/L (<=46); Albumin, Serum 4.2 g/dL (3.4-4.8); Alkaline Phosphatase 63 U/L (40-129); Anion Gap 14 (5-15); BUN 52 mg/dL (4-19); BUN/Creat Ratio 16.2 RATIO (10-20); Calcium,Total 9.2 mg/dL (7.6-11.0); Carbon Dioxide 24.9 mmol/L (21.0-32.0); Chloride 95 mmol/L (98-108); Creatinine, Serum 3.19 mg/dL (0.70-1.20); EST Glomerular Filtration Rate 19 (>60); Globulin 3.7 g/dL (2.2-4.2); Glucose 111 mg/dL (70-99); Potassium 5.5 mmol/L (3.3-5.1); Pro- Brain NATRIURETIC PEPTIDE 14936 pg/mL (<=1800); Protein, Total 7.9 g/dL (5.9-8.4); Sodium Level 133 mmol/L (133-145); Total Bilirubin 0.77 mg/dL (0.00-1.30)
[2025-02-18 19:54] LABS: Anisocytosis 2+; Differential Comment SCANNED; Macrocytosis 2+; Polychromasia 1+
== END | disposition home or self-care (01) ==
LOC: MFPLAB 16:07
PROVIDERS: PCP Family Medicine; Visit Provider Family Medicine
DX: I50.30 Unspecified diastolic (congestive) heart failure (principal); R11.0 Nausea
CPT/HCPCS: 36415; 80053; 83880; 85025

== ENCOUNTER 2025-02-23 11:04 | Inpatient (IN) | payer MEDICARE, OTHER, SELFPAY ==
[2025-02-23] VITALS (14 sets, daily range): BP systolic 130–160; BP diastolic 72–104; PULSE 59–73; RESP 16–22; TEMP 36.3–37.2; O2SAT 92–100; BMI 18.2; BMI 18.1
[2025-02-23 11:30] LABS: Hematocrit 41.5 % (40-54); Hemoglobin 14.4 g/dL (13.0-16.5); Immature Granulocytes Count 0.130 X10^3/uL (0.0-0.0); Mean Corp Hgb Conc 34.7 g/dL (32-36); Mean Corpuscular Volume 107.2 fL (80-94); Mean Platelet Vol. 9.7 fl (6.2-12.0); NRBC Flagged by Analyzer 0 % (0-5); Platelet Count 231 K/mm3 (150-450); RBC Distribution Width CV 16.2 % (11.6-14.6); RBC Distribution Width SD 64.4 fl (35.1-43.9); Red Blood Count 3.87 M/mm3 (4.6-6.2); White Blood Count 11.2 K/mm3 (4.4-11.0)
--- NOTE | 2025-02-23 11:33 | CT_ITS ---
PROCEDURE: ABDOMEN/PELVIS W IV CONT ONLY 02/23/2025 REASON FOR EXAM: ABD PAIN TECHNIQUE: ABDOMEN/PELVIS W IV CONT ONLY Coronal and Sagittal reconstruction series were provided. CONTRAST: 100 mL of Isovue 370 One or more dose reduction techniques were used (e.g., Automated exposure control, adjustment of the mA and/or kV according to patient size, use of iterative reconstruction technique. RADIATION DOSE SUMMARY: DLP: 360 mGycm COMPARISON: None FINDINGS: Limited sections of the lung bases demonstrate no focal pulmonary mass or consolidations. Bibasilar subsegmental atelectasis. Moderate cardiomegaly. The liver, spleen, pancreas, and both adrenal glands demonstrate no acute findings. Scattered subcentimeter hypodensities throughout the liver too small to accurately characterize. Scattered calcifications throughout the spleen likely sequelae of prior granulomatous disease. Tiny subcentimeter hypodensities throughout the spleen too small to accurately characterize. The gallbladder is unremarkable. The stomach is unremarkable. Short segment small bowel loop with thickened leal within the left hemiabdomen ( series 2, image 40-50) suggestive of intussusception or enteritis under appropriate clinical context. The appendix is normal. No colonic obstruction. Extensive colonic diverticulosis without acute diverticulitis. Trace pelvic free fluid. No pneumoperitoneum. Large cysts within bilateral kidneys for example 5.6 x 4.5 cm septated cyst within the upper pole of the left kidney and multiple large cysts within the right kidney measuring up to 3.9 x 4.3 cm. The urinary bladder is partially distended. The pelvic structures are intact. There is no solid pelvic mass. No significant lymphadenopathy. The aorta and IVC demonstrate no acute findings. Extensive atherosclerosis and tortuosity of the abdominal vasculature. No acute fractures. Severe multilevel compression deformities most severe at T11 vertebral body. Cement vertebroplasty material is noted within multiple levels. L3-L5 laminectomies. CT/Abdomen/Pelvis W IV Cont ONLY IMPRESSION: Short segment small bowel loop with thickened leal within the left hemiabdomen (series 2, image 40-50) suggestive of intussusception or enteritis under appropriate clinical context. No bowel obst ruction. Numerous bilateral renal cysts. Extensive colonic diverticulosis without acute diverticulitis. Severe multilevel compression deformities most severe at T11 vertebral body. C ement vertebroplasty material is noted within multiple levels. L3-L5 laminectomies. Reading Location: [id number]
[2025-02-23] MEDS: 0.9% Normal Saline (1000mL) 1,000 ML 999 ML IV ×2 (11:37→17:28)
--- NOTE | 2025-02-23 11:38 | EX.ED.DYSGE1 ---
HPI History of Present Illness Chief Complaint: Weakness Narrative Narrative: Patient is a 84-year-old male with past medical history atrial fibrillation on Eliquis, chronic kidney disease, pulmonary hypertension, CHF, COPD, anemia, ALVARADO who presented to the emergency department with chief complaint of generalized not feeling well weakness, nausea vomiting, lightheadedness. Patient and triage notes states that he was dizzy after clarification of this he is not dizzy he is lightheaded. Patient states that he noted that his potassium was high and his doctor told him to stop taking potassium supplementation however he is unsure of what his potassium level was. He states that last month he had a pacemaker placed. [facility] Medical History Angiodysplasia of stomach Acute respiratory failure Elevated troponin Bright red blood per rectum History of atrial fibrillation Chronic kidney disease Acute lower GI bleeding Atrial fibrillation Bradycardia CKD (chronic kidney disease) stage 4, GFR 15-29 ml/min Acute on chronic heart failure with reduced ejection fraction and diastolic dysfunction Pulmonary hypertension Combined systolic and diastolic congestive heart failure Iron deficiency anemia Coronary artery disease 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 Complete heart 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 Intermittent complete heart block History of atrial fibrillation COPD (chronic obstructive pulmonary disease) with emphysema CHF (congestive heart failure) Hypoxia Chronic kidney disease Chronic anticoagulation Acute dyspnea Acute kidney injury Hypotension Abnormal abdominal ultrasound Persistent atrial fibrillation Hearing loss, left Hearing loss, right Anxiety Chronic pain Rheumatoid arthritis COPD (chronic obstructive pulmonary disease) Irregular heart beat Hypertension Hypothyroidism Hiatal hernia Acute constipation Acute exacerbation of chronic low back pain Wears glasses Thyroid disease Ambulates with cane Arthritis History of renal disease Anemia High cholesterol Easy bruising Excessive bleeding History of leukemia Back pain Difficulty chewing History of diverticulitis Gastric reflux Sleep apnea History of pain when walking History of edema History of echocardiogram History of stress test Cardiology follow-up encounter History of heart attack Nausea and vomiting Chronic anemia Diarrhea Colitis Sleep apnea Acute kidney injury superimposed on chronic kidney disease On amiodarone therapy Elevated LFTs Thoracic aortic aneurysm (TAA) Chronic heart failure with preserved ejection fraction (HFpEF) Nonrheumatic mitral (valve) insufficiency Atypical atrial flutter (12/2020) Elevated liver enzymes Debility Dysphagia Osteoarthritis History of colon polyps Cancer Kidney stones Kidney disease Non-smoker CPAP (continuous positive airway pressure) dependence Atrial fibrillation Myocardial infarct Chronic renal insufficiency Acute gastrointestinal bleeding Chronic kidney disease Benign prostatic hyperplasia Stage 3b chronic kidney disease GI bleed (2013) Non-rheumatic tricuspid valve insufficiency Secondary pulmonary arterial hypertension Essential (primary) hypertension BPH (benign prostatic hyperplasia) History of hyperthyroidism Paroxysmal atrial fibrillation 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 heart disease of [place] coronary artery without angina pectoris HLD (hyperlipidemia) Home Medications ?Medication ?Instructions ?Recorded ?Last Taken ?Type tamsulosin 0.4 mg capsule 0.4 mg PO BID PROSTATE 11/18/21 12/27/24 History ascorbic acid (vitamin C) 500 mg 500 mg PO BID SUPPLEMENT 07/20/22 12/27/24 History tablet finasteride 5 mg tablet 5 mg PO DAILY PROSTATE 08/05/22 12/27/24 History cholecalciferol (vitamin D3) 25 1,000 unit PO QHS SUPPLEMENT 02/19/23 12/27/24 History mcg (1,000 unit) capsule (Vitamin D3) trazodone 50 mg tablet 25 mg PO QHS INSOMNIA 02/28/24 12/27/24 History ferrous sulfate 325 mg (65 mg 325 mg PO QHS ANEMIA 03/20/24 12/27/24 History iron) tablet (Feosol) levothyroxine 50 mcg tablet 50 mcg PO DAILY THYROID 03/20/24 12/27/24 History pantoprazole 20 mg tablet,delayed 20 mg PO DAILY Gerd 08/28/24 12/28/24 History release aluminum-mag hydroxide-simethicone 15 ml PO Q4H PRN PRN Indigestion 12/17/24 Unknown Rx 400 mg-400 mg-40 mg/5 mL oral susp #0 mL (Mag-Al Plus Extra Strength) melatonin 3 mg tablet 3 mg PO QHS PRN PRN Insomnia #0 12/17/24 Unknown Rx tabs menthol 2 % topical gel (Blue Gel) 1 applic topical TID PRN PRN 12/17/24 12/27/24 Rx Arthritis Pain 1-10 #0 grams nitroglycerin 0.4 mg sublingual 0.4 mg sublingual Q5M PRN 12/17/24 Unknown Rx tablet Cardiac/Chest Pain #0 tabs buspirone 5 mg tablet 5 mg PO BID 12/28/24 12/27/24 History loratadine 10 mg tablet (Claritin) 10 mg PO .q48 12/28/24 12/27/24 History acetaminophen 500 mg tablet 1,000 mg (2 x 500 mg) PO Q6H PRN 01/02/25 Unknown Rx PRN Pain Score 1-10 #0 tabs atorvastatin 40 mg tablet 40 mg PO QHS cholesterol #30 tabs 01/14/25 Unknown Rx ranolazine 500 mg tablet,extended 500 mg PO BID heart health #60 tabs 01/14/25 Unknown Rx release,12 hr B-complex with vitamin C 1 tab PO BID 01/16/25 Unknown History amiodarone 100 mg tablet 100 mg PO BID 01/16/25 Unknown History apixaban 2.5 mg tablet (Eliquis) 2.5 mg PO BID 01/16/25 Unknown History diltiazem HCl 120 mg 120 mg PO QAM 01/16/25 Unknown History capsule,extended release 24 hr (Cardizem CD) empagliflozin 10 mg tablet 10 mg PO QAM 01/16/25 Unknown History (Jardiance) furosemide 40 mg tablet 40 mg PO BIDLX #60 tabs 01/16/25 Unknown Rx isosorbide mononitrate 30 mg 30 mg PO QAM 01/16/25 Unknown History tablet,extended release 24 hr magnesium chloride [Mag 64] 1 tab PO DAILY 01/16/25 Unknown History potassium chloride 20 mEq 20 meq PO BID 01/16/25 Unknown History tablet,extended release (K-Tab) dicyclomine 20 mg tablet 20 mg PO TID PRN abdominal pain 02/23/25 Unknown Rx #20 tabs Allergy/AdvReac Type Severity Reaction Status Date / Time diclofenac Allergy rash Verified 02/23/25 11:09 prednisone Allergy Rash Verified 02/23/25 11:09 Family History Father Cancer Prostate cancer Mother Hypertension Sister Hypertension Surgical History Status post placement of cardiac pacemaker History of colonoscopy (03/26/24) History of back surgery History of cardiac catheterization History of esophagogastroduodenoscopy (EGD) History of cardioversion (06/18/19) History of radiofrequency ablation procedure for cardiac arrhythmia (11/11/11) History of electrophysiologic study (08/08/00) History of left heart catheterization (07/17/12) History of hemorrhoidectomy History of Zenaida fundoplication History of coronary artery stent placement (08/04/00) History of hernia repair History of back surgery Social History household members: none housing: house Smoking Status: Never smoker alcohol intake: never substance use type: does not use caffeine: No ROS ROS ED ROS Narrative Constitutional: Complains of lightheadedness as noted above Denies fevers, chills, headaches, dizziness Eyes: Denies change in vision double vision blurry vision Cardiovascular: Denies chest pain or palpitations Respiratory: Complains of shortness of breath denies coughing wheezing Abdomen: Complains of abdominal pain nausea vomiting as noted above denies diarrhea denies black stools or dark tarry stools denies blood in stool : Denies any urinary symptoms Neurological: Complains of generalized weakness denies any numbness or tingling Musculoskeletal: Denies back pain Skin: Denies any rashes or lesions EXAM Physical Exam Narrative Exam Narrative: General: Patient lying in bed rest comfortably did not appear to be acute distress Head: Atraumatic, normocephalic Eyes: PERRL bilaterally, EOMI blood, no conjunctival injection noted Neck: Soft, supple, trachea midline Cardiovascular: Patient bradycardic with a regular rhythm no murmurs gallops rubs noted Respiratory: Clear to auscultation bilaterally Abdomen: Soft, nondistended, diffuse tenderness palpation no rebound or guarding on exam Extremities: +4/5 strength noted in the bilateral upper and lower extremities, radial pulses +2/4 in the biextremities, no pedal edema on exam Neurological: Patient follow commands knew that he was at [facility] the year is 2024 Skin: Warm, dry, tact no rashes or lesions noted Const Vital Signs: 02/23/25 11:05 02/23/25 11:18 02/23/25 12:04 Temperature 97.3 F L Temperature Source Temporal Pulse Rate 59 L 61 Respiratory Rate 16 18 Respiratory Effort Normal Non-Labored Respiratory Pattern Normal Blood Pressure 138/72 H 149/80 H Blood Pressure Mean 94 103 Pulse Ox 100 98 Oxygen Delivery Method Room Air 02/23/25 13:00 02/23/25 14:00 02/23/25 15:00 Temperature Temperature Source Pulse Rate 62 60 63 Respiratory Rate 18 19 H Respiratory Effort Respiratory Pattern Blood Pressure 138/85 H 144/72 H 138/80 H Blood Pressure Mean 102 96 99 Pulse Ox 92 98 96 Oxygen Delivery Method Room Air Room Air 02/23/25 16:00 Temperature Temperature Source Pulse Rate 62 Respiratory Rate 16 Respiratory Effort Respiratory Pattern Blood Pressure 148/83 H Blood Pressure Mean 104 Pulse Ox 94 Oxygen Delivery Method Room Air MDM MDM MDM Narrative Medical decision making narrative: Patient is a 84-year-old male who presents to the emerged part with chief complaint nausea, vomiting, generalized weakness, abdominal pain not feeling well. On the differential diagnose includes but not limited to bowel obstruction, pancreatitis, cholecystitis, diverticulitis, ACS, electrolyte abnormality. Once workup is obtained reviewed he will be reevaluated. Patient will be given IV fluids. Patient's CBC reviewed showed a white count of 11,000, hemoglobin was stable at 14.4, platelet count 231. Patient sodium was 136, potassium normal at 4.1 with hemolysis present, creatinine was elevated at 3.07 however he has underlying chronic kidney disease, BUN was 45 which is chronically elevated as well. Patient's AST and ALT are 27 and 13 respectively. Patient's troponin was 68 with a 2-hour troponin of 59 and a 4-hour troponin of 54. Patient's EKG was reviewed and showed ventricular paced rhythm with a rate of 60 bpm no Sgarbossa criteria were met. Patient proBNP elevated to 10,586 elevated when compared to previous blood draws this is also elevated and when he ambulated in the emergency department he had no hypoxia no dyspnea on exertion. Patient's lipase normal at 26. Patient's CT abdomen pelvis with contrast was reviewed and showed short segment small bowel loops with thickened leal within the left hemiabdomen suggestive of intussusception or enteritis under appropriate clinical context no bowel obstruction. Numerous bilateral renal cysts. Extensive colonic diverticulosis without diverticulitis. He has severe multilevel compression deformities most severe at T11 cement vertebroplasty material is noted within the multiple levels. L3-L5 laminectomies. On reevaluation of the patient he is feeling much improved and would like to go home at this point time. Repeat abdominal exam was performed at 4:36 PM and his abdomen remains benign no tenderness palpation. He was advised to use the Zofran that is prescribed to him already by his primary care physician as prescribed. He is encouraged to use the Bentyl that was sent to the pharmacy as prescribed as well. He is encouraged return with worsening symptoms or concerns. He is agreeable this plan all question concerns answered he was discharged home in stable condition. Once again the patient was ambulated here in the emergency department and had no hypoxia no tachycardia Lab Data Labs: Laboratory Results - last 24 hr 02/23/25 02/23/25 02/23/25 11:20 11:25 13:14 WBC 11.2 H RBC 3.87 L Hgb 14.4 Hct 41.5 MCV 107.2 H MCH 37.2 H MCHC 34.7 RDW Std Deviation 64.4 H RDW Coeff of Pablo 16.2 H Plt Count 231 MPV 9.7 Immature Gran % (Auto) 1.200 H Neut % (Auto) 85.2 H Lymph % (Auto) 7.1 L V[place] % (Auto) 5.9 Eos % (Auto) 0.3 Baso % (Auto) 0.3 Absolute Neuts (auto) 9.6 H Absolute Lymphs (auto) 0.79 L Nucleated RBC % 0 Sodium 136 Potassium 4.1 Chloride 95 L Carbon Dioxide 25.8 Anion Gap 16 H BUN 45 H Creatinine 3.07 H Est GFR (MDRD) Non-Af 19 L BUN/Creatinine Ratio 14.6 Glucose 105 H Calcium 8.7 Total Bilirubin 0.88 AST 27 ALT 13 Alkaline Phosphatase 60 Troponin T High Sens 68 H* D Troponin T Hi Sens 2 Hr 59 H* [place]roponin [place] 4[place] [address] H Total Protein 7.7 Albumin 4.2 Globulin 3.6 Albumin/Globulin Ratio 1.2 Lipase 26 02/23/25 15:28 WBC RBC Hgb Hct MCV MCH MCHC RDW Std Deviation RDW Coeff of Pablo Plt Count MPV Immature Gran % (Auto) Neut % (Auto) Lymph % (Auto) V[place] % (Auto) Eos % (Auto) Baso % (Auto) Absolute Neuts (auto) Absolute Lymphs (auto) Nucleated RBC % Sodium Potassium Chloride Carbon Dioxide Anion Gap BUN Creatinine Est GFR (MDRD) Non-Af BUN/Creatinine Ratio Glucose Calcium Total Bilirubin AST ALT Alkaline Phosphatase Troponin T High Sens Troponin T Hi Sens 2 Hr Troponin T Hi Sens 4Hr 54 H* NT pro BNP II Total Protein Albumin Globulin Albumin/Globulin Ratio Lipase Radiography Diagnostic Testing: Clinical Impression(s) from Imaging Studies Abdomen/Pelvis CT 02/23/25 11:33 IMPRESSION: Short segment small bowel loop with thickened leal within the left hemiabdomen (series 2, image [id number]) suggestive of intussusception or enteritis under appropriate clinical context. No bowel obstruction. Numerous bilateral renal cysts. Extensive colonic diverticulosis without acute diverticulitis. Severe multilevel compression deformities most severe at T11 vertebral body. Cement vertebroplasty material is noted within multiple levels. L3-L5 laminectomies. Reading Location: [facility] Discharge Plan Triage Chief Complaint: Weakness ED Provider: Julio Denise Dx/Rx/DC Orders Clinical Impression: Generalized weakness, Lightheadedness Prescriptions: New dicyclomine 20 mg tablet 20 mg PO TID PRN (Reason: abdominal pain) Qty: 20 0RF No Action tamsulosin 0.4 mg capsule 0.4 mg PO BID ascorbic acid (vitamin C) 500 mg tablet 500 mg PO BID finasteride 5 mg tablet 5 mg PO DAILY trazodone 50 mg tablet 25 mg PO QHS pantoprazole 20 mg tablet,delayed release (DR/EC) 20 mg PO DAILY cholecalciferol (vitamin D3) [Vitamin D3] 25 mcg (1,000 unit) Capsule 1,000 unit PO QHS melatonin 3 mg Tablet 3 mg PO QHS PRN PRN (Reason: Insomnia) Qty: 0 0RF nitroglycerin 0.4 mg Tablet, Sublingual 0.4 mg sublingual Q5M PRN (Reason: Cardiac/Chest Pain) Qty: 0 0RF alum-mag hydroxide-simeth [Mag-Al Plus Extra Strength] 400-400-40 mg/5 mL Suspension 15 ml PO Q4H PRN PRN (Reason: Indigestion) Qty: 0 0RF menthol [Blue Gel] 2 % Gel 1 applic topical TID PRN PRN (Reason: Arthritis Pain 1-10) Qty: 0 0RF acetaminophen 500 mg Tablet 1,000 mg PO Q6H PRN PRN (Reason: Pain Score 1-10) Qty: 0 0RF ferrous sulfate [Feosol] 325 mg (65 mg iron) tablet 325 mg PO QHS levothyroxine 50 mcg Tablet 50 mcg PO DAILY buspirone 5 mg tablet 5 mg PO BID loratadine [Claritin] 10 mg tablet 10 mg PO .q48 atorvastatin 40 mg tablet 40 mg PO QHS Qty: 30 11RF ranolazine 500 mg tablet extended release 12 hr 500 mg PO BID Qty: 60 11RF diltiazem HCl [Cardizem CD] 120 mg capsule,extended release 24hr 120 mg PO QAM isosorbide mononitrate 30 mg tablet extended release 24 hr 30 mg PO QAM amiodarone 100 mg tablet 100 mg PO BID Jardiance 10 mg tablet 10 mg PO QAM furosemide 40 mg tablet 40 mg PO BIDLX Qty: 60 11RF B-complex with vitamin C Tablet 1 tab PO BID Eliquis 2.5 mg tablet 2.5 mg PO BID potassium chloride [K-Tab] 20 mEq tablet extended release 20 meq PO BID magnesium chloride [Mag 64] 1 tab PO DAILY Primary Care Provider: César Chinchilla Referrals: César Chinchilla MD [Primary Care Provider] - Activity Restrictions/Additional Instructions: Follow-up your doctor in the outpatient setting. Return with worsening symptoms or any concerns. Your potassium here in the emergency department was normal. Your blood work did not show any acute findings here today. Use the prescription was sent to your pharmacy as prescribed and use the dissolvable tablet for nausea that was already sent by your doctor as prescribed as well. Ensure that you are hydrating with water. Print Language: Andorran Disposition Disposition: Home, Self Care
--- NOTE | 2025-02-23 11:50 | EKG12_ITS ---
Test Reason : SOB Blood Pressure : */* mmHG Vent. Rate : 60 BPM Atrial Rate : 82 BPM P-R Int : * ms QRS Dur : 188 ms QT Int : 536 ms P-R-T Axes : * -77 96 degrees QTcB Int : 536 ms Ventricular-paced rhythm Abnormal ECG Confirmed by MARCE KASPER, ADAM ([id number]), editor greeting card MADISON MONTOYA ([id number]) on 02/26/2025 6:40:11 AM Referred By: Confirmed By: ADAM ZHENG MD
[2025-02-23 12:27] LABS: AST(SGOT) 27 U/L (<=37); Alanine Aminotransfer ALT/SGPT 13 U/L (<=46); Albumin, Serum 4.2 g/dL (3.4-4.8); Alkaline Phosphatase 60 U/L (40-129); Anion Gap 16 (5-15); BUN 45 mg/dL (4-19); BUN/Creat Ratio 14.6 RATIO (10-20); Calcium,Total 8.7 mg/dL (7.6-11.0); Carbon Dioxide 25.8 mmol/L (21.0-32.0); Chloride 95 mmol/L (98-108); Globulin 3.6 g/dL (2.2-4.2); Glucose 105 mg/dL (70-99); Lipase 26 U/L (13-75); Potassium 4.1 mmol/L (3.3-5.1)
[2025-02-23 12:28] LABS: Pro- Brain NATRIURETIC PEPTIDE 10586 pg/mL (<=1800); Troponin T High Sensitivity 68 ng/L (<=22)
[2025-02-23 15:10] LABS: Troponin T High Sens 2 HR 59 ng/L (<=22)
[2025-02-23 16:27] LABS: Troponin T High Sens 4 HR 54 ng/L (<=22)
[2025-02-23 17:29] LABS: Mucous, Urine 0 SEEN /hpf (<or=2+)
[2025-02-23 17:32] LABS: Color, Urine Yellow (Yellow); Glucose, Dipstick 250 mg/dl (Normal); Ketone-Dipstick Negative (Negative); Leukocyte Esterase-Dipstick Negative /ul (Negative); Nitrite-Dipstick Negative (Negative); Occult Blood-Urine Negative /ul (Negative); Protein-Dipstick 30 mg/dl (Negative); Specific Gravity, Urine 1.015 (1.002-1.030); Urine Bilirubin Dipstick Negative (Negative)
[2025-02-23 17:44] LABS: Red Blood Cells-Urine 0-5 SEEN /hpf (0-5); Squamous Epithelial Cells - UA 0-5 SEEN /hpf (0-5)
--- NOTE | 2025-02-23 18:29 | PCM.HP.STD ---
HPI - General General Date of Admission: 02/23/25 Date of Service: 02/23/25 Chief Complaint: Abdominal pain, nausea, vomiting HPI Narrative RICHIE HANSEN, is a 84-year-old male history of CKD, A-fib on Eliquis, ALVARADO, COPD, CAD status post stenting, CHF, pulmonary hypertension, anemia who presented to [facility] ED 04/25/2025 due to generalized weakness, nausea, vomiting, lightheadedness. In the ED patient afebrile, heart rate 59 blood pressure 138/72, respiratory rate 16 and pulse ox 100% on room air. White blood cell count 11.2 with hemoglobin of 14.4. CMP with normal bicarb, anion gap of 16 with BUN of 45 creatinine of 3.07 slightly down from 1 week ago. Lipase 26 and proBNP 10,000 which is slightly down from previous. Troponin 68 with repeat of 59 add onto previous labs if possible 4-hour troponin of [address] of the abdomen pelvis demonstrated short segment small bowel loop with thickened leal in the left hemiabdomen suggestive of intussusception or enteritis with no overt obstruction. Patient initially had been feeling better and thought was to discharge him however patient ambulated and was feeling lightheaded and then had further vomiting and orthostatic vital signs revealed drop in systolic blood pressure from 160-130. Hospitalist contacted for admission. Recommended surgery be reached out to given the abdominal pain, nausea, CT findings and it was recommended make patient n.p.o. and surgery will see in consult. Patient evaluated at bedside for medical admission. Patient reports that over the past 2 weeks he intermittently is getting crampy abdominal pain with nausea and dry heaves with difficulty taking p.o., also intermittently getting hiccups. No fevers and has been urinating okay but has not had a bowel movement in 3 days. Notes over the past 2 weeks he has been having difficulty getting lightheaded especially when he tries to get up and walk. Little bit of a headache, no new swelling in his legs, no chest pain, denies any change in his breathing in the past few days [facility] Medical History Angiodysplasia of stomach Acute respiratory failure Elevated troponin Bright red blood per rectum History of atrial fibrillation Chronic kidney disease Acute lower GI bleeding Atrial fibrillation Bradycardia CKD (chronic kidney disease) stage 4, GFR 15-29 ml/min Acute on chronic heart failure with reduced ejection fraction and diastolic dysfunction Pulmonary hypertension Combined systolic and diastolic congestive heart failure Iron deficiency anemia Coronary artery disease 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 Complete heart 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 Intermittent complete heart block History of atrial fibrillation COPD (chronic obstructive pulmonary disease) with emphysema CHF (congestive heart failure) Hypoxia Chronic kidney disease Chronic anticoagulation Acute dyspnea Acute kidney injury Hypotension Abnormal abdominal ultrasound Persistent atrial fibrillation Hearing loss, left Hearing loss, right Anxiety Chronic pain Rheumatoid arthritis COPD (chronic obstructive pulmonary disease) Irregular heart beat Hypertension Hypothyroidism Hiatal hernia Acute constipation Acute exacerbation of chronic low back pain Wears glasses Thyroid disease Ambulates with cane Arthritis History of renal disease Anemia High cholesterol Easy bruising Excessive bleeding History of leukemia Back pain Difficulty chewing History of diverticulitis Gastric reflux Sleep apnea History of pain when walking History of edema History of echocardiogram History of stress test Cardiology follow-up encounter History of heart attack Nausea and vomiting Chronic anemia Diarrhea Colitis Sleep apnea Acute kidney injury superimposed on chronic kidney disease On amiodarone therapy Elevated LFTs Thoracic aortic aneurysm (TAA) Chronic heart failure with preserved ejection fraction (HFpEF) Nonrheumatic mitral (valve) insufficiency Atypical atrial flutter (12/2020) Elevated liver enzymes Debility Dysphagia Osteoarthritis History of colon polyps Cancer Kidney stones Kidney disease Non-smoker CPAP (continuous positive airway pressure) dependence Atrial fibrillation Myocardial infarct Chronic renal insufficiency Acute gastrointestinal bleeding Chronic kidney disease Benign prostatic hyperplasia Stage 3b chronic kidney disease GI bleed (2012) Non-rheumatic tricuspid valve insufficiency Secondary pulmonary arterial hypertension Essential (primary) hypertension BPH (benign prostatic hyperplasia) History of hyperthyroidism Paroxysmal atrial fibrillation 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 heart disease of [place] coronary artery without angina pectoris HLD (hyperlipidemia) Home Medications ?Medication ?Instructions ?Recorded ?Last Taken ?Type tamsulosin 0.4 mg capsule 0.4 mg PO BID PROSTATE 11/18/21 02/22/25 History ascorbic acid (vitamin C) 500 mg 500 mg PO BID SUPPLEMENT 07/20/22 02/22/25 History tablet finasteride 5 mg tablet 5 mg PO DAILY PROSTATE 08/05/22 02/22/25 History cholecalciferol (vitamin D3) 25 1,000 unit PO QHS SUPPLEMENT 02/19/23 02/22/25 History mcg (1,000 unit) capsule (Vitamin D3) trazodone 50 mg tablet 25 mg PO QHS INSOMNIA 02/28/24 02/22/25 History ferrous sulfate 325 mg (65 mg 325 mg PO QHS ANEMIA 03/20/24 02/22/25 History iron) tablet (Feosol) levothyroxine 50 mcg tablet 50 mcg PO DAILY THYROID 03/20/24 02/22/25 History pantoprazole 20 mg tablet,delayed 20 mg PO DAILY Gerd 08/28/24 02/22/25 History release aluminum-mag hydroxide-simethicone 15 ml PO Q4H PRN PRN Indigestion 12/17/24 Unknown Rx 400 mg-400 mg-40 mg/5 mL oral susp #0 mL (Mag-Al Plus Extra Strength) melatonin 3 mg tablet 3 mg PO QHS PRN PRN Insomnia #0 12/17/24 Unknown Rx tabs menthol 2 % topical gel (Blue Gel) 1 applic topical TID PRN PRN 12/17/24 12/27/24 Rx Arthritis Pain 1-10 #0 grams nitroglycerin 0.4 mg sublingual 0.4 mg sublingual Q5M PRN 12/17/24 Unknown Rx tablet Cardiac/Chest Pain #0 tabs loratadine 10 mg tablet (Claritin) 10 mg PO .q48 allergies 12/28/24 02/22/25 History acetaminophen 500 mg tablet 1,000 mg (2 x 500 mg) PO Q6H PRN 01/02/25 Unknown Rx PRN Pain Score 1-10 #0 tabs atorvastatin 40 mg tablet 40 mg PO QHS cholesterol #30 tabs 01/14/25 02/22/25 Rx ranolazine 500 mg tablet,extended 500 mg PO BID heart health #60 tabs 01/14/25 02/22/25 Rx release,12 hr B-complex with vitamin C 1 tab PO BID supplement 01/16/25 02/22/25 History amiodarone 100 mg tablet 100 mg PO BID heart 01/16/25 02/22/25 History apixaban 2.5 mg tablet (Eliquis) 2.5 mg PO BID blood thinner 01/16/25 02/22/25 History diltiazem HCl 120 mg 120 mg PO QAM heart 01/16/25 02/22/25 History capsule,extended release 24 hr (Cardizem CD) empagliflozin 10 mg tablet 10 mg PO QAM kidney 01/16/25 02/22/25 History (Jardiance) furosemide 40 mg tablet 40 mg PO BIDLX diuretic #60 tabs 01/16/25 02/22/25 Rx isosorbide mononitrate 30 mg 30 mg PO QAM angina 01/16/25 02/22/25 History tablet,extended release 24 hr magnesium chloride 1 tab PO DAILY supplement 01/16/25 02/22/25 History potassium chloride 20 mEq 20 meq PO BID supplement 01/16/25 02/22/25 History tablet,extended release (K-Tab) dicyclomine 20 mg tablet 20 mg PO TID PRN abdominal pain 02/23/25 Unknown Rx #20 tabs Allergy/AdvReac Type Severity Reaction Status Date / Time diclofenac Allergy rash Verified 02/23/25 11:09 prednisone Allergy Rash Verified 02/23/25 11:09 Family History Father Cancer Prostate cancer Mother Hypertension Sister Hypertension Surgical History Status post placement of cardiac pacemaker History of colonoscopy (03/26/24) History of back surgery History of cardiac catheterization History of esophagogastroduodenoscopy (EGD) History of cardioversion (06/18/19) History of radiofrequency ablation procedure for cardiac arrhythmia (11/11/11) History of electrophysiologic study (08/08/00) History of left heart catheterization (07/17/12) History of hemorrhoidectomy History of Zenaida fundoplication History of coronary artery stent placement (08/04/00) History of hernia repair History of back surgery Social History household members: none housing: house Smoking Status: Never smoker alcohol intake: never substance use type: does not use caffeine: No ROS ROS Narrative General: Denies fever/chills HENT: Little bit of a headache t EYES: Denies changes in vision Resp: No productive cough, has shortness of breath but has since his last hospital admission Cardiac: Denies chest pain GI: Intermittent crampy abdominal pain off and on for the past 2 weeks now with no bowel movement for 3 days and nausea with inability to have adequate p.o. intake and dry heaves : Denies changes in urination Extremity: Denies any new swelling MSK: Generalized weakness and lightheadedness upon standing Neuro: Denies any numbness/tingling Heme: Denies any bleeding or bruising Skin: Denies rashes Psychiatric: No complaints voiced Vital Signs Vital Signs Vital Signs: 02/23/25 11:05 02/23/25 11:18 02/23/25 12:04 Temperature 97.3 F L Temperature Source Temporal Pulse Rate 59 L 61 Pulse Rate [Lying] Pulse Rate [Sitting (for 1 minute prior to obtaining)] Pulse Rate [Standing (for 1 minute prior to obtaining)] Respiratory Rate 16 18 Respiratory Effort Normal Non-Labored Respiratory Pattern Normal Blood Pressure 138/72 H 149/80 H Blood Pressure [Lying] Blood Pressure [Sitting (for 1 minute prior to obtaining)] Blood Pressure [Standing (for 1 minute prior to obtaining)] Blood Pressure Mean 94 103 Blood Pressure Mean [Lying] Blood Pressure Mean [Sitting (for 1 minute prior to obtaining)] Blood Pressure Mean [Standing (for 1 minute prior to obtaining)] Pulse Ox 100 98 Oxygen Delivery Method Room Air 02/23/25 13:00 02/23/25 14:00 02/23/25 15:00 Temperature Temperature Source Pulse Rate 62 60 63 Pulse Rate [Lying] Pulse Rate [Sitting (for 1 minute prior to obtaining)] Pulse Rate [Standing (for 1 minute prior to obtaining)] Respiratory Rate 18 19 H Respiratory Effort Respiratory Pattern Blood Pressure 138/85 H 144/72 H 138/80 H Blood Pressure [Lying] Blood Pressure [Sitting (for 1 minute prior to obtaining)] Blood Pressure [Standing (for 1 minute prior to obtaining)] Blood Pressure Mean 102 96 99 Blood Pressure Mean [Lying] Blood Pressure Mean [Sitting (for 1 minute prior to obtaining)] Blood Pressure Mean [Standing (for 1 minute prior to obtaining)] Pulse Ox 92 98 96 Oxygen Delivery Method Room Air Room Air 02/23/25 16:00 02/23/25 17:00 02/23/25 17:04 Temperature Temperature Source Pulse Rate 62 66 Pulse Rate [Lying] 63 Pulse Rate [Sitting (for 1 minute prior to obtaining)] 61 Pulse Rate [Standing (for 1 minute prior to obtaining)] 73 Respiratory Rate 16 22 H Respiratory Effort Respiratory Pattern Blood Pressure 148/83 H 144/78 H Blood Pressure [Lying] 160/85 H Blood Pressure [Sitting (for 1 minute prior to obtaining)] 159/96 H Blood Pressure [Standing (for 1 minute prior to obtaining)] 130/78 H Blood Pressure Mean 104 100 Blood Pressure Mean [Lying] 110 Blood Pressure Mean [Sitting (for 1 minute prior to obtaining)] 117 Blood Pressure Mean [Standing (for 1 minute prior to obtaining)] 95 Pulse Ox 94 100 Oxygen Delivery Method Room Air 02/23/25 18:00 02/23/25 18:10 Temperature 98.9 F Temperature Source Pulse Rate 66 63 Pulse Rate [Lying] Pulse Rate [Sitting (for 1 minute prior to obtaining)] Pulse Rate [Standing (for 1 minute prior to obtaining)] Respiratory Rate 18 16 Respiratory Effort Respiratory Pattern Blood Pressure 140/83 H 140/83 H Blood Pressure [Lying] Blood Pressure [Sitting (for 1 minute prior to obtaining)] Blood Pressure [Standing (for 1 minute prior to obtaining)] Blood Pressure Mean 102 102 Blood Pressure Mean [Lying] Blood Pressure Mean [Sitting (for 1 minute prior to obtaining)] Blood Pressure Mean [Standing (for 1 minute prior to obtaining)] Pulse Ox 100 Oxygen Delivery Method Physical Exam Narrative General: Alert, oriented HEENT: Atraumatic, normocephalic Eyes: Anicteric, normal conjunctiva, extraocular movements grossly intact Neck: Supple Respiratory: Overall normal respiratory effort, somewhat diminished at the bases Cardiovascular: Regular rate and rhythm GI: Little bit diffusely tender but especially in epigastric region, nondistended, no rebound, guarding, rigidity Extremities: No significant pitting Musculoskeletal: Moving all extremities Neuro: No overt focal neurological deficits Skin: No rashes appreciated Psych: Cooperative Results Lab / Micro Data 02/23/25 11:20 02/23/25 11:20 Labs: Laboratory Results - last 24 hr 02/23/25 11:20: WBC 11.2 H, RBC 3.87 L, Hgb 14.4, Hct 41.5, MCV 107.2 H, MCH 37.2 H, MCHC 34.7, RDW Std Deviation 64.4 H, RDW Coeff of Pablo 16.2 H, Plt Count 231, MPV 9.7, Immature Gran % (Auto) 1.200 H, Neut % (Auto) 85.2 H, Lymph % (Auto) 7.1 L, [place] % (Auto) 5.9, Eos % (Auto) 0.3, Baso % (Auto) 0.3, Absolute Neuts (auto) 9.6 H, Absolute Lymphs (auto) 0.79 L, Nucleated RBC % 0, Sodium 136, Potassium 4.1, Chloride 95 L, Carbon Dioxide 25.8, Anion Gap 16 H, BUN 45 H, Creatinine 3.07 H, Est GFR (MDRD) Non-Af 19 L, BUN/Creatinine Ratio 14.6, Glucose 105 H, Calcium 8.7, Total Bilirubin 0.88, AST 27, ALT 13, Alkaline Phosphatase 60, Total Protein 7.7, Albumin 4.2, Globulin 3.6, Albumin/Globulin Ratio 1.2, Lipase 26 02/23/25 11:25: Troponin T High Sens 68 H* D, [place] [id number] H 02/23/25 13:14: Troponin T Hi Sens 2 Hr 59 H* 02/23/25 15:28: Troponin T Hi Sens 4Hr 54 H* 02/23/25 17:24: Urine Color Yellow, Urine Clarity Clear, Urine pH 8.0, Ur Specific [place] 1.015, Urine Protein 30 H, Urine Glucose (UA) 250 H, Urine Ketones Negative, Urine Occult Blood Negative, Urine Nitrite Negative, Urine Bilirubin Negative, Urine Urobilinogen Normal, Ur Leukocyte Esterase Negative, Urine RBC 0-5 SEEN, Urine WBC 0-5 SEEN, Ur Squamous Epith Cells 0-5 SEEN, Urine Bacteria 0 SEEN, Hyaline Casts 0-5 SEEN, Urine Mucus 0 SEEN Imaging Radiology Impression Abdomen/Pelvis CT 02/23/25 11:33 IMPRESSION: Short segment small bowel loop with thickened leal within the left hemiabdomen (series 2, image [id number]) suggestive of intussusception or enteritis under appropriate clinical context. No bowel obstruction. Numerous bilateral renal cysts. Extensive colonic diverticulosis without acute diverticulitis. Severe multilevel compression deformities most severe at T11 vertebral body. Cement vertebroplasty material is noted within multiple levels. L3-L5 laminectomies. Reading Location: [id number] Assessment & Plan Assessment/Plan (1) Nausea & vomiting: PLAN: Plan # Nausea/vomiting/abdominal pain - CT of the abdomen pelvis demonstrated short segment small bowel loop with thickened leal in the left hemiabdomen suggestive of intussusception or enteritis with no overt obstruction -Surgery was contacted in the ED given symptoms and CT finding and recommended n.p.o. and that they will see him in consultation but presently no acute intervention - IV fluids -Supportive care - N.p.o. # Orthostatic positive -Blood pressure while laying 160/85, standing 130/78 -IV fluids as above given cautiously so given patient's heart failure -Did recently have Lasix increased earlier this month, holding Lasix given the above - Patient's nausea, vomiting, not tolerating p.o. in addition to the increase Lasix may be causing state of volume depletion -Monitor on telemetry - UA not suggestive of UTI -TSH ordered -Echo done 12/10/2024 with pulmonary hypertension and tricuspid and mitral valve insufficiency -Given this was done recently will not reorder - If symptoms do not improve with hydration may need to consider decreasing or holding tamsulosin. Patient with no hypotension and only with relative drop in blood pressure so hesitant to hold patient's antihypertensives especially given medical comorbidities unless absolutely necessary # Elevated troponin -Of 68 with a repeat of 59 and 4-hour troponin of 54 -No chest pain, this may be due to underlying illness in the setting of heart failure, pulmonary hypertension, and CKD stage IV # CKD stage IV - Slightly down from 1 week ago -Avoid nephrotoxic agents -Daily BMPs #Paroxysmal Atrial Fibrillation -Rate control: Diltiazem, amiodarone -Anticoagulation: Eliquis #Hx COPD -Continue home inhalers -Incentive spirometer #Hx of CAD -w/ previous stenting in July 2000 -Continue home medications # History of third-degree heart block status post pacemaker placement -Noted # History of chronic heart failure with preserved ejection fraction and pulmonary hypertension with tricuspid and mitral valve insufficiency -Daily weights, I's and O's -BNP elevated but is actually down from previous -Continue medications -Monitor fluid status cautiously as above, holding Lasix, patient just had a IV fluids, is n.p.o., very poor p.o. intake -Did have recent echo so this will not be repeated, patient does not seem to be in acute exacerbation -Patient follows with cardiology and pulmonology on an outpatient basis #ALVARADO -Patient recently did get a CPAP but has not been able to wear it with all of his nausea and vomiting/current complaints #Chronic BPH with obstruction -Continue home medications #GERD and gastric ulcer with GI bleeding - Will change PPI to IV at this time #Depression/anxiety -Continue home medications #Hypothyroidism -Continue Synthroid #DVT ppx: Chronically anticoagulated on Eliquis Emy Willard MD Charges/Coding Visit Charges Inpatient E&M: 19754 Init Hosp L2
[2025-02-23] MEDS: APIXABAN 2.5 MG TABLET (WCH) PO (22:07)
[2025-02-23] MEDS: Pantoprazole Sodium 40 MG in 0.9% Normal Saline (100mL MB+) 100 ML 300 MG IV (22:07)
[2025-02-24 04:05] VITALS: BP 119/75; PULSE 60; RESP 16; TEMP 36.3; O2SAT 98
[2025-02-24 05:01] VITALS: BMI 18.2
[2025-02-24 05:46] LABS: Hematocrit 36.7 % (40-54); Hemoglobin 12.5 g/dL (13.0-16.5); Immature Granulocytes Count 0.110 X10^3/uL (0.0-0.0); Mean Corp Hgb Conc 34.1 g/dL (32-36); Mean Corpuscular Volume 108.6 fL (80-94); Mean Platelet Vol. 9.5 fl (6.2-12.0); NRBC Flagged by Analyzer 0 % (0-5); POSITIVE DIFFERENTIAL YES; POSITIVE MORPHOLOGY YES; Platelet Count 186 K/mm3 (150-450); RBC Distribution Width CV 16.2 % (11.6-14.6); RBC Distribution Width SD 66.2 fl (35.1-43.9); Red Blood Count 3.38 M/mm3 (4.6-6.2); White Blood Count 9.9 K/mm3 (4.4-11.0)
[2025-02-24 05:56] LABS: Differential Indicated SCAN CRITERIA MET
[2025-02-24 06:17] LABS: Magnesium 2.7 mg/dL (1.5-2.2)
[2025-02-24 06:20] LABS: Anion Gap 11 (5-15); BUN 35 mg/dL (4-19); BUN/Creat Ratio 14.1 RATIO (10-20); Calcium,Total 7.6 mg/dL (7.6-11.0); Carbon Dioxide 23.2 mmol/L (21.0-32.0); Chloride 105 mmol/L (98-108); Estimated Creatinine Clearance 17.72 ml/min (50-250); Glucose 82 mg/dL (70-99); Potassium 3.8 mmol/L (3.3-5.1)
[2025-02-24 06:35] LABS: Anisocytosis 1+; Differential Comment SCANNED; Macrocytosis 1+
--- NOTE | 2025-02-24 07:49 | PCM.PN.HOSP ---
Reason for Visit Reason for Visit: Diagnoses Nausea with vomiting, unspecified (02/23/25) Objective Data Objective Data Vital Signs: Vital Signs Temp Pulse Resp BP Pulse Ox O2 Del Method 97.3 F L 60 16 119/75 98 Room Air 02/24/25 04:05 02/24/25 04:05 02/24/25 04:05 02/24/25 04:05 02/24/25 04:05 02/24/25 04:05 Oxygen Delivery Method Room Air Weight: 120 lb 5.958 oz Body Mass Index (BMI) 18.2 Intake & Output: Intake and Output for Last 24 Hours 02/22/25 02/23/25 02/24/25 23:59 23:59 23:59 Intake Total 2099 Output Total / Balance 2099 -425 / -425 Lab / Micro Data 02/24/25 05:34 02/24/25 05:34 Labs: Laboratory Results - last 24 hr 02/23/25 11:20: WBC 11.2 H, RBC 3.87 L, Hgb 14.4, Hct 41.5, MCV 107.2 H, MCH 37.2 H, MCHC 34.7, RDW Std Deviation 64.4 H, RDW Coeff of Pablo 16.2 H, Plt Count 231, MPV 9.7, Immature Gran % (Auto) 1.200 H, Neut % (Auto) 85.2 H, Lymph % (Auto) 7.1 L, [place] % (Auto) 5.9, Eos % (Auto) 0.3, Baso % (Auto) 0.3, Absolute Neuts (auto) 9.6 H, Absolute Lymphs (auto) 0.79 L, Nucleated RBC % 0, Sodium 136, Potassium 4.1, Chloride 95 L, Carbon Dioxide 25.8, Anion Gap 16 H, BUN 45 H, Creatinine 3.07 H, Est GFR (MDRD) Non-Af 19 L, BUN/Creatinine Ratio 14.6, Glucose 105 H, Calcium 8.7, Total Bilirubin 0.88, AST 27, ALT 13, Alkaline Phosphatase 60, Total Protein 7.7, Albumin 4.2, Globulin 3.6, Albumin/Globulin Ratio 1.2, Lipase 26 02/23/25 11:25: Troponin T High Sens 68 H* D, [place] [id number] H 02/23/25 13:14: Troponin T Hi Sens 2 Hr 59 H* 02/23/25 15:28: Troponin T Hi Sens 4Hr 54 H* 02/23/25 17:24: Urine Color Yellow, Urine Clarity Clear, Urine pH 8.0, Ur Specific [place] 1.015, Urine Protein 30 H, Urine Glucose (UA) 250 H, Urine Ketones Negative, Urine Occult Blood Negative, Urine Nitrite Negative, Urine Bilirubin Negative, Urine Urobilinogen Normal, Ur Leukocyte Esterase Negative, Urine RBC 0-5 SEEN, Urine WBC 0-5 SEEN, Ur Squamous Epith Cells 0-5 SEEN, Urine Bacteria 0 SEEN, Hyaline Casts 0-5 SEEN, Urine Mucus 0 SEEN 02/23/25 17:25: Lactic Acid < 1.0 02/24/25 05:34: WBC 9.9, RBC 3.38 L, Hgb 12.5 L, Hct 36.7 L, MCV 108.6 H, MCH 37.0 H, MCHC 34.1, RDW Std Deviation 66.2 H, RDW Coeff of [place] 16.2 H, Plt Count 186, MPV 9.5, Immature Gran % (Auto) 1.100 H, Neut % (Auto) 84.6 H, Lymph % (Auto) 5.5 L, [place] % (Auto) 7.5, Eos % (Auto) 0.7, Baso % (Auto) 0.6, Absolute Neuts (auto) 8.4 H, Absolute Lymphs (auto) 0.54 L, Nucleated RBC % 0, Differential Comment SCANNED, Anisocytosis 1+, Macrocytosis 1+, Sodium 140, Potassium 3.8, Chloride 105, Carbon Dioxide 23.2, Anion Gap 11, BUN 35 H, Creatinine 2.44 H, Estim Creat Clear Calc 17.72 L, Est GFR (MDRD) Non-Af 26 L, BUN/Creatinine Ratio 14.1, Glucose 82, Calcium 7.6, Magnesium 2.7 H, TSH 1.790 Radiography Diagnostic Testing: Radiology Impression Abdomen/Pelvis CT 02/23/25 11:33 IMPRESSION: Short segment small bowel loop with thickened leal within the left hemiabdomen (series 2, image [id number]) suggestive of intussusception or enteritis under appropriate clinical context. No bowel obstruction. Numerous bilateral renal cysts. Extensive colonic diverticulosis without acute diverticulitis. Severe multilevel compression deformities most severe at T11 vertebral body. Cement vertebroplasty material is noted within multiple levels. L3-L5 laminectomies. Reading Location: [facility] Physical Exam Narrative Seen and examined Patient stated he has on and off abdominal discomfort/intermittent pain for 1 to 2 months. Patient has forgetfulness and does not remember the chronology and gets confused with timeline. He passed last flatus Tuesday or Tuesday morning but did not had bowel movement since . He has chronic constipation moves bowels probably about [address] abdomen pelvis individually reviewed with the images and discussed with the patient. Did not complain of vomiting but had nausea and hiccups for 3 days. No fever.. No diarrhea. Pacemaker with a paced rhythm on the director of cardiac rehabilitation. Physical exam General: Alert, Oriented x3, Cooperative HEENT: Atraumatic, PERRLA, EOMI, Normocephalic. Oral: Oral mucosa dry. No Gingival or Mucosal Lesions/ Ulcerations Neck: Supple, No JVD, Negative Carotid Bruits Chest wall/Lungs: Air entry diminished in bilateral lung bases. No crepitation/rhonchi Cardiovascular: Irregular rate and rhythm, Normal S1,S2, systolic murmur LLSB and cardiac apex Abdomen: Bowel Sounds sluggish. Tenderness at LLQ and RUQ at costal margins. No distention. inguinal hernia repair : No dysuria. No renal angle tenderness. No suprapubic tenderness. Extremities: No edema, Capillary Refill Less than 3 Seconds Skin: No rashes, No breakdown Musculoskeletal: No Tenderness to Palpation of Joints or Extremities. Muscle strength 4+/5 at major joint Neurological: Cranial nerves II-XII grossly intact, DTR 2+/4. No acute focal neurological deficit. Psych/Mental Status: Flat Assessment & Plan Assessment/Plan (1) Nausea & vomiting: PLAN: Plan 84-year-old gentleman was admitted with generalized weakness, nausea, vomiting, lightheadedness and dizzy on walking. Patient was getting dizzy and off balance on walking. Patient did not had bowel movement for 3 to 4 days usually once or twice a week. Nausea and he cough. Did not pass gas for at least 24 hours 1. Intermittent abdominal pain, nausea/discomfort, acute on chronic constipation: Patient is being admitted to U. CT abdomen with IV contrast initially reviewed. It shows short segment small bowel with wall thickening and looping in left upper quadrant suggestive of obstruction. Radiologist reported intussusception or enteritis. Extensive colonic diverticulosis with fecal matter. Numerous bilateral renal cysts. Discussed with the surgeon Dr. King. IV fluid Ringer [id number]. Keep n.p.o. He will evaluate the patient and further management accordingly # Orthostatic positive -Blood pressure while laying 160/85, standing 130/78 -IV fluids as above given cautiously so given patient's heart failure. 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 Repeat today 35/2.44. 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 intake -Did have recent echo so this will not be repeated, patient does not seem to be in acute exacerbation -Patient follows with cardiology and pulmonology on an outpatient basis #ALVARADO -Patient recently did get a CPAP but has not been able to wear it with all of his nausea and vomiting/current complaints #Chronic BPH with obstruction -Continue home medications #GERD and gastric ulcer with GI bleeding - Will change PPI to IV at this time #Depression/anxiety -Continue home medications #Hypothyroidism -Continue Synthroid #DVT ppx: Chronically anticoagulated on Eliquis Laboratory Results 02/23/25 11:20: WBC 11.2 H, RBC 3.87 L, Hgb 14.4, Hct 41.5, MCV 107.2 H, MCH 37.2 H, MCHC 34.7, RDW Std Deviation 64.4 H, RDW Coeff of Pablo 16.2 H, Plt Count 231, MPV 9.7, Immature Gran % (Auto) 1.200 H, Neut % (Auto) 85.2 H, Lymph % (Auto) 7.1 L, [place] % (Auto) 5.9, Eos % (Auto) 0.3, Baso % (Auto) 0.3, Absolute Neuts (auto) 9.6 H, Absolute Lymphs (auto) 0.79 L, Nucleated RBC % 0, Sodium 136, Potassium 4.1, Chloride 95 L, Carbon Dioxide 25.8, Anion Gap 16 H, BUN 45 H, Creatinine 3.07 H, Est GFR (MDRD) Non-Af 19 L, BUN/Creatinine Ratio 14.6, Glucose 105 H, Calcium 8.7, Total Bilirubin 0.88, AST 27, ALT 13, Alkaline Phosphatase 60, Total Protein 7.7, Albumin 4.2, Globulin 3.6, Albumin/Globulin Ratio 1.2, Lipase 26 02/23/25 11:25: Troponin T High Sens 68 H* D, [place] [id number] H 02/23/25 13:14: Troponin T Hi Sens 2 Hr 59 H* 02/23/25 15:28: Troponin T Hi Sens 4Hr 54 H* 02/23/25 17:24: Urine Color Yellow, Urine Clarity Clear, Urine pH 8.0, Ur Specific [place] 1.015, Urine Protein 30 H, Urine Glucose (UA) 250 H, Urine Ketones Negative, Urine Occult Blood Negative, Urine Nitrite Negative, Urine Bilirubin Negative, Urine Urobilinogen Normal, Ur Leukocyte Esterase Negative, Urine RBC 0-5 SEEN, Urine WBC 0-5 SEEN, Ur Squamous Epith Cells 0-5 SEEN, Urine Bacteria 0 SEEN, Hyaline Casts 0-5 SEEN, Urine Mucus 0 SEEN 02/23/25 17:25: Lactic Acid < 1.0 02/24/25 05:34: WBC 9.9, RBC 3.38 L, Hgb 12.5 L, Hct 36.7 L, MCV 108.6 H, MCH 37.0 H, MCHC 34.1, RDW Std Deviation 66.2 H, RDW Coeff of Pablo 16.2 H, Plt Count 186, MPV 9.5, Immature Gran % (Auto) 1.100 H, Neut % (Auto) 84.6 H, Lymph % (Auto) 5.5 L, [place] % (Auto) 7.5, Eos % (Auto) 0.7, Baso % (Auto) 0.6, Absolute Neuts (auto) 8.4 H, Absolute Lymphs (auto) 0.54 L, Nucleated RBC % 0, Differential Comment SCANNED, Anisocytosis 1+, Macrocytosis 1+, Sodium 140, Potassium 3.8, Chloride 105, Carbon Dioxide 23.2, Anion Gap 11, BUN 35 H, Creatinine 2.44 H, Estim Creat Clear Calc 17.72 L, Est GFR (MDRD) Non-Af 26 L, BUN/Creatinine Ratio 14.1, Glucose 82, Calcium 7.6, Magnesium 2.7 H, TSH 1.790 Charges/Coding Addendum Addendum: Total time of the visit including total time spent in counseling or coordination of care, (more than 50% of the total time, spent in obtaining medical information from nurses and other ancillary care providers ,explaining to the patient about labs, imaging, diagnosis and management of active complex medical conditions), reviewing the CT images past medical and surgical history, discussion with the surgeon review of labs and imaging is 35 minutes. Visit Charges Inpatient E&M: 05844 Subs Hosp L3
[2025-02-24 10:43] VITALS: BP 151/79; PULSE 60; RESP 16; TEMP 36.7; O2SAT 94
--- NOTE | 2025-02-24 11:20 | EX.PCM.CON.S ---
Assessment & Plan Assessment/Plan (1) Abnormal CT scan, gastrointestinal tract: PLAN: Plan The patient is an 84-year-old male who was admitted with weakness and lightheadedness. Patient underwent CT scan that showed a questionable intussusception involving the small bowel in the left side of the abdomen. A general surgery consult was obtained. I explained to the patient that many times we will have incidental findings of small bowel peristalsis that can mimic findings of intussusception on CT scan. Given the fact that there is no associated obstruction noted on the CT scan, I suspect this may just be peristalsis/incidental finding. However we will take the liberty to order a small bowel follow-through to confirm this. Patient is agreeable. This will be performed today. We will continue to follow along and advise accordingly. This was discussed with hospitalist as well HPI Consult Data Date of Consult: 02/24/25 HPI Narrative Reason for Consultation: Possible small bowel intussusception seen on CT scan HPI Narrative: RICHIE HANSEN, is a 84 M who presented to [facility] emergency department on 04/25/2025 with complaints of generalized weakness, nausea/vomiting, and lightheadedness. Patient has a past medical history of atrial fibrillation and is on Eliquis. He also has chronic kidney disease, sleep apnea, COPD, coronary artery disease, CHF, anemia, and pulmonary hypertension. Patient was seen evaluate by the ER staff. He underwent routine blood work. He had normal white blood cell count BUN and creatinine were elevated. Patient underwent a CT scan of the abdomen pelvis that showed a short segment of small bowel with what appeared to be thickened wall and possible intussusception. The CT however did not indicate any type of associated obstruction. Patient continued to have lightheadedness and orthostatic hypotension and so he was admitted. Surgical consult was obtained for further evaluation of this CT scan finding. Patient states overall this morning he is feeling improved. He admits to some occasional cramping discomfort in the lower abdomen as well as some tenderness in the epigastric area. No recent flatus or bowel movement. [facility] Medical History (Updated 02/24/25 @ 11:[address] Kings King MD) Abnormal CT scan, gastrointestinal tract Angiodysplasia of stomach Acute respiratory failure Elevated troponin Bright red blood per rectum History of atrial fibrillation Chronic kidney disease Acute lower GI bleeding Atrial fibrillation Bradycardia CKD (chronic kidney disease) stage 4, GFR 15-29 ml/min Acute on chronic heart failure with reduced ejection fraction and diastolic dysfunction Pulmonary hypertension Combined systolic and diastolic congestive heart failure Iron deficiency anemia Coronary artery disease 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 Complete heart 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 Intermittent complete heart block History of atrial fibrillation COPD (chronic obstructive pulmonary disease) with emphysema CHF (congestive heart failure) Hypoxia Chronic kidney disease Chronic anticoagulation Acute dyspnea Acute kidney injury Hypotension Abnormal abdominal ultrasound Persistent atrial fibrillation Hearing loss, left Hearing loss, right Anxiety Chronic pain Rheumatoid arthritis COPD (chronic obstructive pulmonary disease) Irregular heart beat Hypertension Hypothyroidism Hiatal hernia Acute constipation Acute exacerbation of chronic low back pain Wears glasses Thyroid disease Ambulates with cane Arthritis History of renal disease Anemia High cholesterol Easy bruising Excessive bleeding History of leukemia Back pain Difficulty chewing History of diverticulitis Gastric reflux Sleep apnea History of pain when walking History of edema History of echocardiogram History of stress test Cardiology follow-up encounter History of heart attack Nausea and vomiting Chronic anemia Diarrhea Colitis Sleep apnea Acute kidney injury superimposed on chronic kidney disease On amiodarone therapy Elevated LFTs Thoracic aortic aneurysm (TAA) Chronic heart failure with preserved ejection fraction (HFpEF) Nonrheumatic mitral (valve) insufficiency Atypical atrial flutter (12/2020) Elevated liver enzymes Debility Dysphagia Osteoarthritis History of colon polyps Cancer Kidney stones Kidney disease Non-smoker CPAP (continuous positive airway pressure) dependence Atrial fibrillation Myocardial infarct Chronic renal insufficiency Acute gastrointestinal bleeding Chronic kidney disease Benign prostatic hyperplasia Stage 3b chronic kidney disease GI bleed (2012) Non-rheumatic tricuspid valve insufficiency Secondary pulmonary arterial hypertension Essential (primary) hypertension BPH (benign prostatic hyperplasia) History of hyperthyroidism Paroxysmal atrial fibrillation 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 heart disease of [place] coronary artery without angina pectoris HLD (hyperlipidemia) Home Medications ?Medication ?Instructions ?Recorded ?Last Taken ?Type tamsulosin 0.4 mg capsule 0.4 mg PO BID PROSTATE 11/18/21 02/22/25 History ascorbic acid (vitamin C) 500 mg 500 mg PO BID SUPPLEMENT 07/20/22 02/22/25 History tablet finasteride 5 mg tablet 5 mg PO DAILY PROSTATE 08/05/22 02/22/25 History cholecalciferol (vitamin D3) 25 1,000 unit PO QHS SUPPLEMENT 02/19/23 02/22/25 History mcg (1,000 unit) capsule (Vitamin D3) trazodone 50 mg tablet 25 mg PO QHS INSOMNIA 02/28/24 02/22/25 History ferrous sulfate 325 mg (65 mg 325 mg PO QHS ANEMIA 03/20/24 02/22/25 History iron) tablet (Feosol) levothyroxine 50 mcg tablet 50 mcg PO DAILY THYROID 03/20/24 02/22/25 History pantoprazole 20 mg tablet,delayed 20 mg PO DAILY Gerd 08/28/24 02/22/25 History release aluminum-mag hydroxide-simethicone 15 ml PO Q4H PRN PRN Indigestion 12/17/24 Unknown Rx 400 mg-400 mg-40 mg/5 mL oral susp #0 mL (Mag-Al Plus Extra Strength) melatonin 3 mg tablet 3 mg PO QHS PRN PRN Insomnia #0 12/17/24 Unknown Rx tabs menthol 2 % topical gel (Blue Gel) 1 applic topical TID PRN PRN 12/17/24 12/27/24 Rx Arthritis Pain 1-10 #0 grams nitroglycerin 0.4 mg sublingual 0.4 mg sublingual Q5M PRN 12/17/24 Unknown Rx tablet Cardiac/Chest Pain #0 tabs loratadine 10 mg tablet (Claritin) 10 mg PO .q48 allergies 12/28/24 02/22/25 History acetaminophen 500 mg tablet 1,000 mg (2 x 500 mg) PO Q6H PRN 01/02/25 Unknown Rx PRN Pain Score 1-10 #0 tabs atorvastatin 40 mg tablet 40 mg PO QHS cholesterol #30 tabs 01/14/25 02/22/25 Rx ranolazine 500 mg tablet,extended 500 mg PO BID heart health #60 tabs 01/14/25 02/22/25 Rx release,12 hr B-complex with vitamin C 1 tab PO BID supplement 01/16/25 02/22/25 History amiodarone 100 mg tablet 100 mg PO BID heart 01/16/25 02/22/25 History apixaban 2.5 mg tablet (Eliquis) 2.5 mg PO BID blood thinner 01/16/25 02/22/25 History diltiazem HCl 120 mg 120 mg PO QAM heart 01/16/25 02/22/25 History capsule,extended release 24 hr (Cardizem CD) empagliflozin 10 mg tablet 10 mg PO QAM kidney 01/16/25 02/22/25 History (Jardiance) furosemide 40 mg tablet 40 mg PO BIDLX diuretic #60 tabs 01/16/25 02/22/25 Rx isosorbide mononitrate 30 mg 30 mg PO QAM angina 01/16/25 02/22/25 History tablet,extended release 24 hr magnesium chloride 1 tab PO DAILY supplement 01/16/25 02/22/25 History potassium chloride 20 mEq 20 meq PO BID supplement 01/16/25 02/22/25 History tablet,extended release (K-Tab) dicyclomine 20 mg tablet 20 mg PO TID PRN abdominal pain 02/23/25 Unknown Rx #20 tabs Allergy/AdvReac Type Severity Reaction Status Date / Time diclofenac Allergy rash Verified 02/23/25 11:09 prednisone Allergy Rash Verified 02/23/25 11:09 Family History Father Cancer Prostate cancer Mother Hypertension Sister Hypertension Surgical History Status post placement of cardiac pacemaker History of colonoscopy (03/26/24) History of back surgery History of cardiac catheterization History of esophagogastroduodenoscopy (EGD) History of cardioversion (06/18/19) History of radiofrequency ablation procedure for cardiac arrhythmia (11/11/11) History of electrophysiologic study (08/08/00) History of left heart catheterization (07/17/12) History of hemorrhoidectomy History of Zenaida fundoplication History of coronary artery stent placement (08/04/00) History of hernia repair History of back surgery Social History household members: none housing: house Smoking Status: Never smoker alcohol intake: never substance use type: does not use caffeine: No ROS Eyes Eyes: Reports systems reviewed and no addt'l complaints, except as documented ENT HEENT: Reports systems reviewed and no addt'l complaints, except as documented Cardiovascular Cardiovascular: Reports systems reviewed and no addt'l complaints, except as documented Respiratory/Chest Respiratory/Chest: Reports systems reviewed and no addt'l complaints, except as documented Gastrointestinal Gastrointestinal: Reports systems reviewed and no addt'l complaints, except as documented Physical Exam Narrative The patient is alert and oriented x 3. He is in no acute distress. Head is normocephalic and atraumatic. Pupils are equal round and reactive to light. Abdomen is soft and nondistended. He has some mild tenderness to palpation in the epigastric area as well as in the suprapubic region. No appreciable tenderness with palpation in the left side of the abdomen near the region of the CT scan finding. Lab / Micro Data 02/24/25 05:34 02/24/25 05:34 Labs: Laboratory Results - last 24 hr 02/23/25 11:20: WBC 11.2 H, RBC 3.87 L, Hgb 14.4, Hct 41.5, MCV 107.2 H, MCH 37.2 H, MCHC 34.7, RDW Std Deviation 64.4 H, RDW Coeff of Pablo 16.2 H, Plt Count 231, MPV 9.7, Immature Gran % (Auto) 1.200 H, Neut % (Auto) 85.2 H, Lymph % (Auto) 7.1 L, [place] % (Auto) 5.9, Eos % (Auto) 0.3, Baso % (Auto) 0.3, Absolute Neuts (auto) 9.6 H, Absolute Lymphs (auto) 0.79 L, Nucleated RBC % 0, Sodium 136, Potassium 4.1, Chloride 95 L, Carbon Dioxide 25.8, Anion Gap 16 H, BUN 45 H, Creatinine 3.07 H, Est GFR (MDRD) Non-Af 19 L, BUN/Creatinine Ratio 14.6, Glucose 105 H, Calcium 8.7, Total Bilirubin 0.88, AST 27, ALT 13, Alkaline Phosphatase 60, Total Protein 7.7, Albumin 4.2, Globulin 3.6, Albumin/Globulin Ratio 1.2, Lipase 26 02/23/25 11:25: Troponin T High Sens 68 H* D, [place] [id number] H 02/23/25 13:14: Troponin T Hi Sens 2 Hr 59 H* 02/23/25 15:28: Troponin T Hi Sens 4Hr 54 H* 02/23/25 17:24: Urine Color Yellow, Urine Clarity Clear, Urine pH 8.0, Ur Specific [place] 1.015, Urine Protein 30 H, Urine Glucose (UA) 250 H, Urine Ketones Negative, Urine Occult Blood Negative, Urine Nitrite Negative, Urine Bilirubin Negative, Urine Urobilinogen Normal, Ur Leukocyte Esterase Negative, Urine RBC 0-5 SEEN, Urine WBC 0-5 SEEN, Ur Squamous Epith Cells 0-5 SEEN, Urine Bacteria 0 SEEN, Hyaline Casts 0-5 SEEN, Urine Mucus 0 SEEN 02/23/25 17:25: Lactic Acid < 1.0 02/24/25 05:34: WBC 9.9, RBC 3.38 L, Hgb 12.5 L, Hct 36.7 L, MCV 108.6 H, MCH 37.0 H, MCHC 34.1, RDW Std Deviation 66.2 H, RDW Coeff of [place] 16.2 H, Plt Count 186, MPV 9.5, Immature Gran % (Auto) 1.100 H, Neut % (Auto) 84.6 H, Lymph % (Auto) 5.5 L, [place] % (Auto) 7.5, Eos % (Auto) 0.7, Baso % (Auto) 0.6, Absolute Neuts (auto) 8.4 H, Absolute Lymphs (auto) 0.54 L, Nucleated RBC % 0, Differential Comment SCANNED, Anisocytosis 1+, Macrocytosis 1+, Sodium 140, Potassium 3.8, Chloride 105, Carbon Dioxide 23.2, Anion Gap 11, BUN 35 H, Creatinine 2.44 H, Estim Creat Clear Calc 17.72 L, Est GFR (MDRD) Non-Af 26 L, BUN/Creatinine Ratio 14.1, Glucose 82, Calcium 7.6, Magnesium 2.7 H, TSH 1.790 Imaging Radiology Impression Abdomen/Pelvis CT 02/23/25 11:33 IMPRESSION: Short segment small bowel loop with thickened leal within the left hemiabdomen (series 2, image [id number]) suggestive of intussusception or enteritis under appropriate clinical context. No bowel obstruction. Numerous bilateral renal cysts. Extensive colonic diverticulosis without acute diverticulitis. Severe multilevel compression deformities most severe at T11 vertebral body. Cement vertebroplasty material is noted within multiple levels. L3-L5 laminectomies. Reading Location: [facility]
[2025-02-24] MEDS: 0.9% Saline Lock 10 ML Syringe IV (11:24)
--- NOTE | 2025-02-24 11:50 | RAD_ITS ---
PROCEDURE: SMALL BOWEL SERIES ONLY 02/24/2025 REASON FOR EXAM: POSSIBLE INTUSSUSCEPTION ON CT SCAN TECHNIQUE: SMALL BOWEL SERIES ONLY COMPARISON: CT 02/23/2025 FINDINGS: The comparison CT showed a left mid abdominal short-segment small bowel intussusception. Current examination shows nondistended stomach and small bowel. Contrast flows into the large bowel without difficulty. There is diverticulosis. No evidence for intussusception. RAD/Small Bowel Series Only IMPRESSION: Likely the recent transient intussusception has resolved since the prior CT. N o evidence for bowel obstruction. Reading Location: [place] [id number]
[2025-02-24 16:00] VITALS: BP 143/88; PULSE 59; RESP 16; TEMP 36.5
[2025-02-24 21:44] VITALS: BP 144/85; PULSE 60; RESP 16; TEMP 36.9; O2SAT 95
[2025-02-25] MEDS: MENTHOL 226.8 GM JAR 1 APPLIC TOPICAL (00:50)
[2025-02-25 03:20] VITALS: BP 146/81; PULSE 60; RESP 16; TEMP 36.3; O2SAT 94; BMI 18.1
[2025-02-25 06:08] LABS: Hematocrit 36.1 % (40-54); Hemoglobin 12.4 g/dL (13.0-16.5); Immature Granulocytes Count 0.240 X10^3/uL (0.0-0.0); Mean Corp Hgb Conc 34.3 g/dL (32-36); Mean Corpuscular Volume 109.1 fL (80-94); Mean Platelet Vol. 9.8 fl (6.2-12.0); NRBC Flagged by Analyzer 0 % (0-5); POSITIVE DIFFERENTIAL YES; POSITIVE MORPHOLOGY YES; Platelet Count 180 K/mm3 (150-450); RBC Distribution Width CV 16.2 % (11.6-14.6); RBC Distribution Width SD 66.1 fl (35.1-43.9); Red Blood Count 3.31 M/mm3 (4.6-6.2); White Blood Count 12.4 K/mm3 (4.4-11.0)
[2025-02-25 06:15] LABS: Differential Indicated SCAN CRITERIA MET
[2025-02-25 06:20] LABS: Anion Gap 11 (5-15); BUN 30 mg/dL (4-19); BUN/Creat Ratio 12.8 RATIO (10-20); Calcium,Total 7.9 mg/dL (7.6-11.0); Carbon Dioxide 24.3 mmol/L (21.0-32.0); Chloride 109 mmol/L (98-108); Estimated Creatinine Clearance 18.66 ml/min (50-250); Glucose 109 mg/dL (70-99); Potassium 3.5 mmol/L (3.3-5.1)
[2025-02-25 06:44] LABS: Anisocytosis 1+; Macrocytosis 1+
[2025-02-25 06:45] LABS: Differential Comment SCANNED
--- NOTE | 2025-02-25 08:25 | PN.SURG_ITS ---
Subjective Subjective Patient evaluated resting comfortably in bed. He notes having abdominal pain over night. He states he is feeling improved this morning. He has had multiple loose stools yesterday. Objective Data Objective Data Vital Signs: Vital Signs Temp Pulse Resp BP Pulse Ox O2 Del Method 97.4 F L 60 16 146/81 H 94 Room Air 02/25/25 03:20 02/25/25 03:20 02/25/25 03:20 02/25/25 03:20 02/25/25 03:20 02/25/25 03:20 Oxygen Delivery Method Room Air Weight: 119 lb 7.849 oz Body Mass Index (BMI) 18.1 Intake & Output: Intake and Output for Last 24 Hours 02/23/25 02/24/25 02/25/25 23:59 23:59 23:59 Intake Total 2099 / 2100 956.25 / 956.25 Output Total 425 / 625 200 / 200 Balance 2100 / 1675 -425 / -625 756.25 / 756.25 Lab / Micro Data 02/25/25 05:29 02/25/25 05:29 Labs: Laboratory Results - last 24 hr 02/25/25 05:29: WBC 12.4 H, RBC 3.31 L, Hgb 12.4 L, Hct 36.1 L, MCV 109.1 H, MCH 37.5 H, MCHC 34.3, RDW Std Deviation 66.1 H, RDW Coeff of Pablo 16.2 H, Plt Count 180, MPV 9.8, Immature Gran % (Auto) 1.900 H, Neut % (Auto) 87.0 H, Lymph % (Auto) 2.8 L, [place] % (Auto) 7.3, Eos % (Auto) 0.6, Baso % (Auto) 0.4, Absolute Neuts (auto) 10.7 H, Absolute Lymphs (auto) 0.34 L, Nucleated RBC % 0, Differential Comment SCANNED, Anisocytosis 1+, Macrocytosis 1+, Sodium 144, Potassium 3.5, Chloride 109 H, Carbon Dioxide 24.3, Anion Gap 11, BUN 30 H, C reatinine 2.30 H, Estim Creat Clear Calc 18.66 L, Est GFR (MDRD) Non-Af 27 L, BUN/Creatinine Ratio 12.8, Glucose 109 H, Calcium 7.9 Micro: Microbiology 02/23/25 17:24 Urine, Clean Catch Urine Culture - Preliminary GPC Poss Enterococcus sp Radiography Diagnostic Testing: Radiology Impression Small Bowel X-Ray 02/24/25 11:50 IMPRESSION: Likely the recent transient intussusception has resolved since the prior CT. No evidence for bowel obstruction. Reading Location: [place] [id number] Physical Exam GI GI Narrative: Abdomen- soft, nontender to palpation. Hypoactive bowel sounds Assessment & Plan Assessment/Plan (1) Abnormal CT scan, gastrointestinal tract: PLAN: I am following this patient in conjunction with Dr. King. He has independently evaluated this patient. Labs reviewed Increase diet to clear liquids Small bowel follow-through showed no evidence of a bowel obstruction May advance to full liquids at lunch if tolerates clear liquids We will continue to monitor this patient Possible discharge later today or tomorrow Charges/Coding Visit Charges Inpatient E&M: 22020 Subs Hosp L2
[2025-02-25] MEDS: Pantoprazole Sodium 40 MG in 0.9% Normal Saline (100mL MB+) 100 ML 300 MG IV (09:49)
[2025-02-25 10:00] VITALS: BP 147/73; PULSE 61; RESP 16; TEMP 36.4; O2SAT 98
--- NOTE | 2025-02-25 11:10 | CASEMGMT ---
RADHA PORTER Face to Face with patient for initial transition planning/care coordination assessment. RADHA PORTER introduced self and role at [facility]. Patient lying in bed, alert and oriented. Patient willing to participate in assessment and is able to answer all questions appropriately. Care providers, pharmacy, and demographics verified. Strata: 3 PCP: [facility] Specialists: Christiane, otolaryngology teacher; Jesse, rotary drill rig operator; Friend, GI; Terese, Senior Solutions Consultant Preferred Pharmacy: [facility] Insurance: [employer], [employer] Prescription Benefit: yes Living Will/HPOA: yes, MIKE Neelima Durant LNOK: sister, MIKE Living Arrangements: Patient lives alone in a single story home with 2 steps and railing to enter the home. Patient states he is independent at home. Transportation: self, MIKE DME/HHC: Patient has shower chair, raised toilet, cane, walker, and grab bars at home. Patient has been to TCU and [facility] in the past. Patient has had [facility] in the past. Patient states he is not able to safely discharge to home. Patient requesting TCU at discharge, declined SNF list. Patient states he has no further needs or concerns at this time. RN GERMAN made referral to TCU, awaiting acceptance. CM to follow for discharge planning needs that may arise. Disposition Plan: TCU pending acceptance. [place] VALDEZ, RN, CM
--- NOTE | 2025-02-25 13:42 | CASEMGMT ---
RN CM updated by TCU that they are able to accept patient. RN CM updated patient and is agreeable to discharge plan. Patient to discharge to TCU when medically ready.
--- NOTE | 2025-02-25 15:02 | CHAPLAIN ---
Type of Pastoral Visit _x__ Initial Visit ___ Follow-up Visit ___ On-call Visit ___ General Patient Visit ___ Spiritual Assessment ___ Family Conference ___ Bereavement ___ Rapid Response ___ Code Blue ___ Other (describe below) Pastoral Care Referral From _x__ Patient ___ Family ___ Nurse ___ Physician ___ Other Sports Official ___ Cast Shell Grinder ___ Other (describe below) Sacrament/Intervention _x__ Active listening ___ Anointing ___ Taoist ___ Bereavement ___ Communion _x__ Jerica exploration ___ _x__ Life review _x__ Prayer ___ Reconciliation ___ Sacrament of Sick ___ Supportive presence ___ Wedding ___ Other (describe below) Pastoral Comments patient states that he has been in the hospital for a month with just a recent and short break at home; pt is pleasant and talkative; pt has some questions about the Bible and end times; pt seeks a prayer and someone to talk with; no other needs evident
--- NOTE | 2025-02-25 15:13 | PCM.PN.HOSP ---
Reason for Visit Reason for Visit: Diagnoses Nausea with vomiting, unspecified (02/23/25) Abnormal findings on diagnostic imaging of other parts of digestive tract (02/23/25) Objective Data Objective Data Vital Signs: Vital Signs Temp Pulse Resp BP Pulse Ox O2 Del Method 97.5 F L 61 16 147/73 H 98 Room Air 02/25/25 10:00 02/25/25 10:00 02/25/25 10:00 02/25/25 10:00 02/25/25 10:00 02/25/25 10:00 Oxygen Delivery Method Room Air Weight: 119 lb 7.849 oz Body Mass Index (BMI) 18.1 Intake & Output: Intake and Output for Last 24 Hours 02/23/25 02/24/25 02/25/25 23:59 23:59 23:59 Intake Total 2099.25 / 2055. Output Total 425 / 625 200 / 200 Balance 2099 / 1674 -425 / -625 1856.25 / 185.25 Lab / Micro Data 02/25/25 05:29 02/25/25 05:29 Labs: Laboratory Results - last 24 hr 02/25/25 05:29: WBC 12.4 H, RBC 3.31 L, Hgb 12.4 L, Hct 36.1 L, MCV 109.1 H, MCH 37.5 H, MCHC 34.3, RDW Std Deviation 66.1 H, RDW Coeff of Pablo 16.2 H, Plt Count 180, MPV 9.8, Immature Gran % (Auto) 1.900 H, Neut % (Auto) 87.0 H, Lymph % (Auto) 2.8 L, [place] % (Auto) 7.3, Eos % (Auto) 0.6, Baso % (Auto) 0.4, Absolute Neuts (auto) 10.7 H, Absolute Lymphs (auto) 0.34 L, Nucleated RBC % 0, Differential Comment SCANNED, Anisocytosis 1+, Macrocytosis 1+, Sodium 144, Potassium 3.5, Chloride 109 H, Carbon Dioxide 24.3, Anion Gap 11, BUN 30 H, Creatinine 2.30 H, Estim Creat Clear Calc 18.66 L, Est GFR (MDRD) Non-Af 27 L, BUN/Creatinine Ratio 12.8, Glucose 109 H, Calcium 7.9 Micro: Microbiology 02/23/25 17:24 Urine, Clean Catch Urine Culture - Preliminary GPC Poss Enterococcus sp Radiography Diagnostic Testing: Radiology Impression Small Bowel X-Ray 02/24/25 11:50 IMPRESSION: Likely the recent transient intussusception has resolved since the prior CT. No evidence for bowel obstruction. Reading Location: [place] [id number] Physical Exam Narrative Seen and examined Patient had multiple bowel movements. Small bowel follow-through shows resolution of possible intussusception bowel loops and contrast reaching to the rectum. As per surgeon probably might be peristalsis not actual intussusception Physical exam General: Alert, Oriented x3, Cooperative HEENT: Atraumatic, PERRLA, EOMI, Normocephalic. Oral: Oral mucosa dry. No Gingival or Mucosal Lesions/ Ulcerations Neck: Supple, No JVD, Negative Carotid Bruits Chest wall/Lungs: Air entry diminished in bilateral lung bases. No crepitation/rhonchi Cardiovascular: Irregular rate and rhythm, Normal S1,S2, systolic murmur LLSB and cardiac apex Abdomen: Bowel Sounds hypoactive to normal. No tenderness no distention. inguinal hernia repair : No dysuria. No renal angle tenderness. No suprapubic tenderness. Extremities: No edema, Capillary Refill Less than 3 Seconds Skin: No rashes, No breakdown Musculoskeletal: No Tenderness to Palpation of Joints or Extremities. Muscle strength 4+/5 at major joint Neurological: Cranial nerves II-XII grossly intact, DTR 2+/4. No acute focal neurological deficit. Psych/Mental Status: Flat Assessment & Plan Assessment/Plan (1) Nausea & vomiting: PLAN: Plan 84-year-old gentleman was admitted with generalized weakness, nausea, vomiting, lightheadedness and dizzy on walking. Patient was getting dizzy and off balance on walking. Nausea and he cough. Did not pass gas for at least 24 hours Patient stated he has on and off abdominal discomfort/intermittent pain for 1 to 2 months. He passed last flatus Tuesday or Tuesday morning but did not had bowel movement since . He has chronic constipation moves bowels probably about 2 times a week. Did not complain of vomiting but had nausea and hiccups for 3 days. No fever.. No diarrhea. 1. Intermittent abdominal pain, nausea/discomfort, acute on chronic constipation, possible intussusception or small bowel peristalsis: Patient is being admitted to PCU. CT abdomen with IV contrast initially reviewed. It shows short segment small bowel with wall thickening and looping in left upper quadrant suggestive of obstruction. Radiologist reported intussusception or enteritis. Extensive colonic diverticulosis with fecal matter. Numerous bilateral renal cysts. Discussed with the surgeon Dr. King. IV fluid Ringer [id number]. Keep n.p.o. He will evaluate the patient and further management accordingly 02/25: small bowel follow-through shows nondistended stomach and small bowel. Contrast flows into large bowel without difficulty. No evidence for intussusception. Patient had bowel movement. Clear liquid and advance to full liquid as per tolerated and then soft diet. As per surgeon it might have been peristalsis contraction # Orthostatic positive -Blood pressure while laying 160/85, standing 130/78 -IV fluids as above given cautiously so given patient's heart failure. -Monitor on telemetry - UA not suggestive of UTI -TSH 1.79 -Echo done 12/10/2024 with pulmonary hypertension and tricuspid and mitral valve insufficiency - 02/25: Paced rhythm on the clinical research monitor. No acute issues. Repeat orthostatics tomorrow a.m. patient is physically weak and not able to walk therefore possible TCU tomorrow a.m. 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 Repeat today 35/2.44. 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 intake -Did have recent echo so this will not be repeated, patient does not seem to be in acute exacerbation -Patient follows with cardiology and pulmonology on an outpatient basis #ALVARADO -Patient recently did get a CPAP but has not been able to wear it with all of his nausea and vomiting/current complaints #Chronic BPH with obstruction -Continue home medications 02/25: Urine culture shows possible Enterococcus but colony count less than 1000 therefore contamination. No indication for antibiotic #GERD and gastric ulcer with GI bleeding - Will change PPI to IV at this time #Depression/anxiety -Continue home medications #Hypothyroidism -Continue Synthroid #DVT ppx: Chronically anticoagulated on Eliquis Laboratory Results 02/23/25 11:20: WBC 11.2 H, RBC 3.87 L, Hgb 14.4, Hct 41.5, MCV 107.2 H, MCH 37.2 H, MCHC 34.7, RDW Std Deviation 64.4 H, RDW Coeff of Pablo 16.2 H, Plt Count 231, MPV 9.7, Immature Gran % (Auto) 1.200 H, Neut % (Auto) 85.2 H, Lymph % (Auto) 7.1 L, [place] % (Auto) 5.9, Eos % (Auto) 0.3, Baso % (Auto) 0.3, Absolute Neuts (auto) 9.6 H, Absolute Lymphs (auto) 0.79 L, Nucleated RBC % 0, Sodium 136, Potassium 4.1, Chloride 95 L, Carbon Dioxide 25.8, Anion Gap 16 H, BUN 45 H, Creatinine 3.07 H, Est GFR (MDRD) Non-Af 19 L, BUN/Creatinine Ratio 14.6, Glucose 105 H, Calcium 8.7, Total Bilirubin 0.88, AST 27, ALT 13, Alkaline Phosphatase 60, Total Protein 7.7, Albumin 4.2, Globulin 3.6, Albumin/Globulin Ratio 1.2, Lipase 26 02/23/25 11:25: Troponin T High Sens 68 H* D, [place] [address] H 02/23/25 13:14: Troponin T Hi Sens 2 Hr 59 H* 02/23/25 15:28: Troponin T Hi Sens 4Hr 54 H* 02/23/25 17:24: Urine Color Yellow, Urine Clarity Clear, Urine pH 8.0, Ur Specific Barton 1.015, Urine Protein 30 H, Urine Glucose (UA) 250 H, Urine Ketones Negative, Urine Occult Blood Negative, Urine Nitrite Negative, Urine Bilirubin Negative, Urine Urobilinogen Normal, Ur Leukocyte Esterase Negative, Urine RBC 0-5 SEEN, Urine WBC 0-5 SEEN, Ur Squamous Epith Cells 0-5 SEEN, Urine Bacteria 0 SEEN, Hyaline Casts 0-5 SEEN, Urine Mucus 0 SEEN 02/23/25 17:25: Lactic Acid < 1.0 02/24/25 05:34: Magnesium 2.7 H, TSH 1.790 Microbiology Past 72 Hours 02/23/25 17:24 Urine, Clean Catch Urine Culture - Preliminary GPC Poss Enterococcus sp Laboratory Results 02/25/25 05:29: WBC 12.4 H, RBC 3.31 L, Hgb 12.4 L, Hct 36.1 L, MCV 109.1 H, MCH 37.5 H, MCHC 34.3, RDW Std Deviation 66.1 H, RDW Coeff of Pablo 16.2 H, Plt Count 180, MPV 9.8, Immature Gran % (Auto) 1.900 H, Neut % (Auto) 87.0 H, Lymph % (Auto) 2.8 L, [place] % (Auto) 7.3, Eos % (Auto) 0.6, Baso % (Auto) 0.4, Absolute Neuts (auto) 10.7 H, Absolute Lymphs (auto) 0.34 L, Nucleated RBC % 0, Differential Comment SCANNED, Anisocytosis 1+, Macrocytosis 1+, Sodium 144, Potassium 3.5, Chloride 109 H, Carbon Dioxide 24.3, Anion Gap 11, BUN 30 H, Creatinine 2.30 H, Estim Creat Clear Calc 18.66 L, Est GFR (MDRD) Non-Af 27 L, BUN/Creatinine Ratio 12.8, Glucose 109 H, Calcium 7.9 Charges/Coding Visit Charges Inpatient E&M: 15742 Subs Hosp L2
[2025-02-25 16:00] VITALS: BP 116/68; PULSE 60; RESP 16; TEMP 36.3; O2SAT 98
[2025-02-25] MEDS: Potassium Chloride Oral Tablet 20 MEQ PO (17:08)
[2025-02-25 22:00] VITALS: BP 116/70; PULSE 60; RESP 16; TEMP 36.9; O2SAT 95
[2025-02-26 04:00] VITALS: BP 123/66; PULSE 60; RESP 16; TEMP 36.8; O2SAT 95
[2025-02-26 05:03] VITALS: BMI 18.8
[2025-02-26 06:28] LABS: Hematocrit 33.7 % (40-54); Hemoglobin 11.6 g/dL (13.0-16.5); Immature Granulocytes Count 0.270 X10^3/uL (0.0-0.0); Mean Corp Hgb Conc 34.4 g/dL (32-36); Mean Corpuscular Volume 109.1 fL (80-94); Mean Platelet Vol. 9.9 fl (6.2-12.0); NRBC Flagged by Analyzer 0 % (0-5); POSITIVE DIFFERENTIAL YES; POSITIVE MORPHOLOGY YES; Platelet Count 169 K/mm3 (150-450); RBC Distribution Width CV 16.4 % (11.6-14.6); RBC Distribution Width SD 66.1 fl (35.1-43.9); Red Blood Count 3.09 M/mm3 (4.6-6.2); White Blood Count 11.1 K/mm3 (4.4-11.0)
[2025-02-26 06:32] LABS: Differential Indicated SCAN CRITERIA MET
[2025-02-26 06:53] LABS: Anion Gap 7 (5-15); BUN 27 mg/dL (4-19); BUN/Creat Ratio 12.2 RATIO (10-20); Calcium,Total 8.0 mg/dL (7.6-11.0); Carbon Dioxide 27.2 mmol/L (21.0-32.0); Chloride 107 mmol/L (98-108); Estimated Creatinine Clearance 20.02 ml/min (50-250); Glucose 100 mg/dL (70-99); Potassium 4.0 mmol/L (3.3-5.1)
--- NOTE | 2025-02-26 07:04 | PN.SURG_ITS ---
Subjective Subjective Patient evaluated resting comfortably in bed. He denies any nausea, vomiting or abdominal pain over night. He notes his abdominal pain has completely resolved. He notes tolerating full liquids well. His main concern is back pain from the multiple x-rays that he had completed on Tuesday. Objective Data Objective Data Vital Signs: Vital Signs Temp Pulse Resp BP Pulse Ox O2 Del Method 98.3 F 60 16 123/66 H 95 Room Air 02/26/25 04:00 02/26/25 04:00 02/26/25 04:00 02/26/25 04:00 02/26/25 04:00 02/26/25 04:00 Oxygen Delivery Method Room Air Weight: 124 lb 5.451 oz Body Mass Index (BMI) 18.8 Intake & Output: Intake and Output for Last 24 Hours 02/24/25 02/25/25 02/26/25 23:59 23:59 23:59 Intake Total 2056.25 / 2176.25 180 / 180 Output Total 425 / 625 200 / 200 350 / 350 Balance -425 / -625 1856.25 / 1976.25 -170 / -170 Lab / Micro Data 02/26/25 05:46 02/26/25 05:46 Labs: Laboratory Results - last 24 hr 02/26/25 05:46: WBC 11.1 H, RBC 3.09 L, Hgb 11.6 L, Hct 33.7 L, MCV 109.1 H, MCH 37.5 H, MCHC 34.4, RDW Std Deviation 66.1 H, RDW Coeff of Pablo 16.4 H, Plt Count 169, MPV 9.9, Immature Gran % (Auto) 2.400 H, Neut % (Auto) 83.9 H, Lymph % (Auto) 4.2 L, [place] % (Auto) 7.5, Eos % (Auto) 1.6, Baso % (Auto) 0.4, Absolute Neuts (auto) 9.3 H, Absolute Lymphs (auto) 0.46 L, Nucleated RBC % 0, Sodium 141, Potassium 4.0, Chloride 107, Carbon Dioxide 27.2, Anion Gap 7, BUN 27 H, C reatinine 2.23 H, Estim Creat Clear Calc 20.02 L, Est GFR (MDRD) Non-Af 29 L, BUN/Creatinine Ratio 12.2, Glucose 100 H, Calcium 8.0 Micro: Microbiology 02/23/25 17:24 Urine, Clean Catch Urine Culture - Preliminary GPC Poss Enterococcus sp Physical Exam GI GI Narrative: Abdomen- soft, nontender, nondistended. Positive bowel sounds Assessment & Plan Assessment/Plan (1) Abnormal CT scan, gastrointestinal tract: PLAN: I am following this patient in conjunction with Dr. King. He will independently evaluate this patient Labs reviewed. Increase diet to regular cardiac diet If tolerate regular diet without pain, patient may be discharged to TCU No further follow-up needed from a surgical standpoint No surgical intervention is recommended at this time We will continue to monitor this patient while inpatient Charges/Coding Visit Charges Inpatient E&M: 06847 Subs Hosp L2
[2025-02-26 07:59] LABS: Schistocytes RARE
[2025-02-26 08:00] LABS: Anisocytosis 1+
[2025-02-26] MEDS: Magnesium Chloride 64 MG Delay Rel.Tablet PO (10:06)
[2025-02-26] MEDS: Potassium Chloride Oral Tablet 20 MEQ PO (10:07)
[2025-02-26 10:10] VITALS: BP 121/72; PULSE 60; RESP 16; TEMP 36.7; O2SAT 95
--- NOTE | 2025-02-26 10:35 | TREXTCAR_ITS ---
Diet Diet Order/Speech Therapy: INPATIENT Hospital Diet / Speech Therapy Order(s) 02/26/25 07:04 Diet: Cardiac - Heart Healthy Soft transitional diet for 2 days and then regular texture food. DC O2, CPAP, BIPAP needs Home O2 Discharge instructions: No Wound(s) Left great toe: Wound Type: Blister Problem/Diagnosis (1) Abnormal CT scan, gastrointestinal tract: Status: Acute Code(s): R93.3 - Abnormal findings on diagnostic imaging of other parts of digestive tract Plan 84-year-old gentleman was admitted with generalized weakness, nausea, vomiting, lightheadedness and dizzy on walking. Patient was getting dizzy and off balance on walking. Nausea and he cough. Did not pass gas for at least 24 hours Patient stated he has on and off abdominal discomfort/intermittent pain for 1 to 2 months. He passed last flatus Tuesday or Tuesday morning but did not had bowel movement since . He has chronic constipation moves bowels probably about 2 times a week. Did not complain of vomiting but had nausea and hiccups for 3 days. No fever.. No diarrhea. 1. Intermittent abdominal pain, nausea/discomfort, acute on chronic constipation, possible intussusception or small bowel peristalsis: Patient is being admitted to PCU. CT abdomen with IV contrast initially reviewed. It shows short segment small bowel with wall thickening and looping in left upper quadrant suggestive of obstruction. Radiologist reported intussusception or enteritis. Extensive colonic diverticulosis with fecal matter. Numerous bilateral renal cysts. Discussed with the surgeon Dr. King. IV fluid Ringer [id number]. Keep n.p.o. He will evaluate the patient and further management accordingly 02/25: small bowel follow-through shows nondistended stomach and small bowel. Contrast flows into large bowel without difficulty. No evidence for intussusception. Patient had bowel movement. Clear liquid and advance to full liquid as per tolerated and then soft diet. As per surgeon it might have been peristalsis contraction 02/26: Patient is moving bowel. Obstruction has resolved # Orthostatic positive -Blood pressure while laying 160/85, standing 130/78 -IV fluids as above given cautiously so given patient's heart failure. -Monitor on telemetry - UA not suggestive of UTI -TSH 1.79 -Echo done 12/10/2024 with pulmonary hypertension and tricuspid and mitral valve insufficiency - 02/25: Paced rhythm on the cardiac nurse practitioner. No acute issues. Repeat orthostatics tomorrow a.m. patient is physically weak and not able to walk therefore possible TCU tomorrow a.m. 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 Repeat today 35/2.44. 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 intake -Did have recent echo so this will not be repeated, patient does not seem to be in acute exacerbation -Patient follows with cardiology and pulmonology on an outpatient basis #ALVARADO -Patient recently did get a CPAP but has not been able to wear it with all of his nausea and vomiting/current complaints #Chronic BPH with obstruction -Continue home medications 02/25: Urine culture shows possible Enterococcus but colony count less than 1000 therefore contamination. No indication for antibiotic #GERD and gastric ulcer with GI bleeding - Will change PPI to IV at this time #Depression/anxiety -Continue home medications #Hypothyroidism -Continue Synthroid #DVT ppx: Chronically anticoagulated on Eliquis Patient is very weak not able to walk therefore going to TCU for rehab. Microbiology Past 72 Hours 02/23/25 17:24 Urine, Clean Catch Urine Culture - Final GPC Poss Enterococcus sp Laboratory Results 02/26/25 05:46: WBC 11.1 H, RBC 3.09 L, Hgb 11.6 L, Hct 33.7 L, MCV 109.1 H, MCH 37.5 H, MCHC 34.4, RDW Std Deviation 66.1 H, RDW Coeff of Pablo 16.4 H, Plt Count 169, MPV 9.9, Immature Gran % (Auto) 2.400 H, Neut % (Auto) 83.9 H, Lymph % (Auto) 4.2 L, [place] % (Auto) 7.5, Eos % (Auto) 1.6, Baso % (Auto) 0.4, Absolute Neuts (auto) 9.3 H, Absolute Lymphs (auto) 0.46 L, Nucleated RBC % 0, Platelet Estimate A, Anisocytosis 1+, Ovalocytes 1+, Schistocytes RARE, Sodium 141, Potassium 4.0, Chloride 107, Carbon Dioxide 27.2, Anion Gap 7, BUN 27 H, Creatinine 2.23 H, Estim Creat Clear Calc 20.02 L, Est GFR (MDRD) Non-Af 29 L, BUN/Creatinine Ratio 12.2, Glucose 100 H, Calcium 8.0 Allergies/Procedures Done in Hospital Allergies diclofenac Allergy (Verified 02/23/25 11:09) rash prednisone Allergy (Verified 02/23/25 11:09) Rash Type of Care/Length of Stay Estimated LOS: Convalescent Care Less Than 30 days Type of Care Needed: Skilled Rehab Potential: Good Prognosis: Good Additional Orders/Day of Discharge Day of Discharge: 02/26/25 Dietary and Speech Recommendations Dietitian Recommendations/Changes: Recommend when medically able, advancing diet to Low Fiber diet to manage medical conditions. Goal diet is Cardiac to manage CHF. Discharge Plan Admission Admit Date/Time: 02/23/25 18:29 Attending Provider: Drew Morton Primary Care Provider: César Chinchilla Consulting Providers: Knigs King; Emy Willard Instructions Additional Instructions / Restrictions: Follow-up with your doctor in the outpatient setting. Return with worsening symptoms and concerns. Your potassium was normal here today. Ensure that you are hydrating orally with plenty of fluids. Use the prescription that was sent for nausea by your doctor already as prescribed. 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 Discharge Orders/Prescriptions Prescriptions: New dicyclomine 20 mg tablet 20 mg PO TID PRN (Reason: abdominal pain) Qty: 20 0RF Continued tamsulosin 0.4 mg capsule 0.4 mg PO BID ascorbic acid (vitamin C) 500 mg tablet 500 mg PO BID finasteride 5 mg tablet 5 mg PO DAILY trazodone 50 mg tablet 25 mg PO QHS pantoprazole 20 mg tablet,delayed release (DR/EC) 20 mg PO DAILY cholecalciferol (vitamin D3) [Vitamin D3] 25 mcg (1,000 unit) Capsule 1,000 unit PO QHS melatonin 3 mg Tablet 3 mg PO QHS PRN PRN (Reason: Insomnia) Qty: 0 0RF nitroglycerin 0.4 mg Tablet, Sublingual 0.4 mg sublingual Q5M PRN (Reason: Cardiac/Chest Pain) Qty: 0 0RF menthol [Blue Gel] 2 % Gel 1 applic topical TID PRN PRN (Reason: Arthritis Pain 1-10) Qty: 0 0RF acetaminophen 500 mg Tablet 1,000 mg PO Q6H PRN PRN (Reason: Pain Score 1-10) Qty: 0 0RF ferrous sulfate [Feosol] 325 mg (65 mg iron) tablet 325 mg PO QHS levothyroxine 50 mcg Tablet 50 mcg PO DAILY loratadine [Claritin] 10 mg tablet 10 mg PO .q48 atorvastatin 40 mg tablet 40 mg PO QHS Qty: 30 11RF ranolazine 500 mg tablet extended release 12 hr 500 mg PO BID Qty: 60 11RF diltiazem HCl [Cardizem CD] 120 mg capsule,extended release 24hr 120 mg PO QAM isosorbide mononitrate 30 mg tablet extended release 24 hr 30 mg PO QAM amiodarone 100 mg tablet 100 mg PO BID Jardiance 10 mg tablet 10 mg PO QAM furosemide 40 mg tablet 40 mg PO BIDLX Qty: 60 11RF B-complex with vitamin C Tablet 1 tab PO BID Eliquis 2.5 mg tablet 2.5 mg PO BID potassium chloride [K-Tab] 20 mEq tablet extended release 20 meq PO BID magnesium chloride [Mag 64] 1 tab PO DAILY Discontinued alum-mag hydroxide-simeth [Mag-Al Plus Extra Strength] 400-400-40 mg/5 mL Suspension 15 ml PO Q4H PRN PRN (Reason: Indigestion) Qty: 0 0RF Referrals / Follow Up: César Chinchilla MD [Primary Care Provider] - Kings King MD [Med Staff - Active Staff] - Within 2 Weeks Disposition Disposition (needs filled in before D/C Order can be placed): [facility] Facility
--- NOTE | 2025-02-26 10:48 | PCM.DC.SUM ---
Providers Date of Admission: 02/23/25 Date of Discharge: 02/26/25 Primary Care Physician: Dr. César Chinchilla MD Consultations 02/23/25 20:30 Consult: General Surgery Routine Consulting Provider: Kings King Reason for Consult: n/v/abd pain, CT w/ ?Intussusception EMERGENT Consult: No MD Notified: Yes Date Notified: 02/23/25 Time Notified: 20:32 Method of Notification: ED Physician Initiated Reason For Visit: PRESYNCOPE, N/V/ABD PAIN, EXTENSIVE CARDIAC HX Diagnosis Discharge Diagnosis (1) Abnormal CT scan, gastrointestinal tract: Status: Acute Code(s): R93.3 - Abnormal findings on diagnostic imaging of other parts of digestive tract Plan 84-year-old gentleman was admitted with generalized weakness, nausea, vomiting, lightheadedness and dizzy on walking. Patient was getting dizzy and off balance on walking. Nausea and he cough. Did not pass gas for at least 24 hours Patient stated he has on and off abdominal discomfort/intermittent pain for 1 to 2 months. He passed last flatus Tuesday or Tuesday morning but did not had bowel movement since . He has chronic constipation moves bowels probably about 2 times a week. Did not complain of vomiting but had nausea and hiccups for 3 days. No fever.. No diarrhea. 1. Intermittent abdominal pain, nausea/discomfort, acute on chronic constipation, possible intussusception or small bowel peristalsis: Patient is being admitted to PCU. CT abdomen with IV contrast initially reviewed. It shows short segment small bowel with wall thickening and looping in left upper quadrant suggestive of obstruction. Radiologist reported intussusception or enteritis. Extensive colonic diverticulosis with fecal matter. Numerous bilateral renal cysts. Discussed with the surgeon Dr. King. IV fluid Ringer [id number]. Keep n.p.o. He will evaluate the patient and further management accordingly 02/25: small bowel follow-through shows nondistended stomach and small bowel. Contrast flows into large bowel without difficulty. No evidence for intussusception. Patient had bowel movement. Clear liquid and advance to full liquid as per tolerated and then soft diet. As per surgeon it might have been peristalsis contraction 02/26: Patient is moving bowel. Obstruction has resolved # Orthostatic positive -Blood pressure while laying 160/85, standing 130/78 -IV fluids as above given cautiously so given patient's heart failure. -Monitor on telemetry - UA not suggestive of UTI -TSH 1.79 -Echo done 12/10/2024 with pulmonary hypertension and tricuspid and mitral valve insufficiency - 02/25: Paced rhythm on the foam rubber fabricator. No acute issues. Repeat orthostatics tomorrow a.m. patient is physically weak and not able to walk therefore possible TCU tomorrow a.m. 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 Repeat today 35/2.44. 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 intake -Did have recent echo so this will not be repeated, patient does not seem to be in acute exacerbation -Patient follows with cardiology and pulmonology on an outpatient basis #ALVARADO -Patient recently did get a CPAP but has not been able to wear it with all of his nausea and vomiting/current complaints #Chronic BPH with obstruction -Continue home medications 02/25: Urine culture shows possible Enterococcus but colony count less than 1000 therefore contamination. No indication for antibiotic #GERD and gastric ulcer with GI bleeding - Will change PPI to IV at this time #Depression/anxiety -Continue home medications #Hypothyroidism -Continue Synthroid #DVT ppx: Chronically anticoagulated on Eliquis Patient is very weak not able to walk therefore going to TCU for rehab. Patient has severe malnutrition with moderate muscle atrophy intervertebral/paravertebral, intercostal muscles and craniofacial muscles with prominence of spinous process of thoracic and lumbar spine. Patient not able to stand up along with severe atrophy of muscles of thigh and calf. Microbiology Past 72 Hours 02/23/25 17:24 Urine, Clean Catch Urine Culture - Final GPC Poss Enterococcus sp Laboratory Results 02/26/25 05:46: WBC 11.1 H, RBC 3.09 L, Hgb 11.6 L, Hct 33.7 L, MCV 109.1 H, MCH 37.5 H, MCHC 34.4, RDW Std Deviation 66.1 H, RDW Coeff of [place] 16.4 H, Plt Count 169, MPV 9.9, Immature Gran % (Auto) 2.400 H, Neut % (Auto) 83.9 H, Lymph % (Auto) 4.2 L, [place] % (Auto) 7.5, Eos % (Auto) 1.6, Baso % (Auto) 0.4, Absolute Neuts (auto) 9.3 H, Absolute Lymphs (auto) 0.46 L, Nucleated RBC % 0, Platelet Estimate A, Anisocytosis 1+, Ovalocytes 1+, Schistocytes RARE, Sodium 141, Potassium 4.0, Chloride 107, Carbon Dioxide 27.2, Anion Gap 7, BUN 27 H, Creatinine 2.23 H, Estim Creat Clear Calc 20.02 L, Est GFR (MDRD) Non-Af 29 L, BUN/Creatinine Ratio 12.2, Glucose 100 H, Calcium 8.0 Medications at Discharge Home Medications tamsulosin 0.4 mg capsule 0.4 mg PO BID PROSTATE 11/18/21 ascorbic acid (vitamin C) 500 mg tablet 500 mg PO BID SUPPLEMENT 07/20/22 finasteride 5 mg tablet 5 mg PO DAILY PROSTATE 08/05/22 cholecalciferol (vitamin D3) 25 mcg (1,000 unit) capsule (Vitamin D3) 1,000 unit PO QHS SUPPLEMENT 02/19/23 trazodone 50 mg tablet 25 mg PO QHS INSOMNIA 02/28/24 ferrous sulfate 325 mg (65 mg iron) tablet (Feosol) 325 mg PO QHS ANEMIA 03/20/24 levothyroxine 50 mcg tablet 50 mcg PO DAILY THYROID 03/20/24 pantoprazole 20 mg tablet,delayed release 20 mg PO DAILY Gerd 08/28/24 melatonin 3 mg tablet 3 mg PO QHS PRN PRN Insomnia #0 tabs 12/17/24 menthol 2 % topical gel (Blue Gel) 1 applic topical TID PRN PRN Arthritis Pain 1-10 #0 grams 12/17/24 nitroglycerin 0.4 mg sublingual tablet 0.4 mg sublingual Q5M PRN Cardiac/Chest Pain #0 tabs 12/17/24 loratadine 10 mg tablet (Claritin) 10 mg PO .q48 allergies 12/28/24 acetaminophen 500 mg tablet 1,000 mg (2 x 500 mg) PO Q6H PRN PRN Pain Score 1-10 #0 tabs 01/02/25 atorvastatin 40 mg tablet 40 mg PO QHS cholesterol #30 tabs 01/14/25 ranolazine 500 mg tablet,extended release,12 hr 500 mg PO BID heart health #60 tabs 01/14/25 B-complex with vitamin C 1 tab PO BID supplement 01/16/25 amiodarone 100 mg tablet 100 mg PO BID heart 01/16/25 apixaban 2.5 mg tablet (Eliquis) 2.5 mg PO BID blood thinner 01/16/25 diltiazem HCl 120 mg capsule,extended release 24 hr (Cardizem CD) 120 mg PO QAM heart 01/16/25 empagliflozin 10 mg tablet (Jardiance) 10 mg PO QAM kidney 01/16/25 furosemide 40 mg tablet 40 mg PO BIDLX diuretic #60 tabs 01/16/25 isosorbide mononitrate 30 mg tablet,extended release 24 hr 30 mg PO QAM angina 01/16/25 magnesium chloride 1 tab PO DAILY supplement 01/16/25 potassium chloride 20 mEq tablet,extended release (K-Tab) 20 meq PO BID supplement 01/16/25 dicyclomine 20 mg tablet 20 mg PO TID PRN abdominal pain #20 tabs 02/23/25 Physical Exam Narrative Seen and examined Patient is moving bowel. On soft diet. Earlier, small bowel follow-through shows resolution of possible intussusception bowel loops and contrast reaching to the rectum. As per surgeon probably might be peristalsis not actual intussusception Physical exam General: Alert, Oriented x3, Cooperative HEENT: Atraumatic, PERRLA, EOMI, Normocephalic. Oral: Oral mucosa dry. No Gingival or Mucosal Lesions/ Ulcerations Neck: Supple, No JVD, Negative Carotid Bruits Chest wall/Lungs: Air entry diminished in bilateral lung bases. No crepitation/rhonchi Cardiovascular: Irregular rate and rhythm, Normal S1,S2, systolic murmur LLSB and cardiac apex Abdomen: Bowel Sounds hypoactive to normal. No tenderness no distention. inguinal hernia repair : No dysuria. No renal angle tenderness. No suprapubic tenderness. Extremities: No edema, Capillary Refill Less than 3 Seconds Skin: No rashes, No breakdown Musculoskeletal: No Tenderness to Palpation of Joints or Extremities. Muscle strength 4+/5 at major joint. Severe muscle atrophy of lower extremities Neurological: Cranial nerves II-XII grossly intact, DTR 2+/4. No acute focal neurological deficit. Psych/Mental Status: Flat Weight / BMI Weight Weight: 124 lb 5.451 oz Body Mass Index (BMI) 18.8 ABG / Lab / Microbiology Data 02/26/25 05:46 02/26/25 05:46 Laboratory: Laboratory Results - last 24 hr 02/26/25 05:46: WBC 11.1 H, RBC 3.09 L, Hgb 11.6 L, Hct 33.7 L, MCV 109.1 H, MCH 37.5 H, MCHC 34.4, RDW Std Deviation 66.1 H, RDW Coeff of Pablo 16.4 H, Plt Count 169, MPV 9.9, Immature Gran % (Auto) 2.400 H, Neut % (Auto) 83.9 H, Lymph % (Auto) 4.2 L, [place] % (Auto) 7.5, Eos % (Auto) 1.6, Baso % (Auto) 0.4, Absolute Neuts (auto) 9.3 H, Absolute Lymphs (auto) 0.46 L, Nucleated RBC % 0, Platelet Estimate A, Anisocytosis 1+, Ovalocytes 1+, Schistocytes RARE, Sodium 141, Potassium 4.0, Chloride 107, Carbon Dioxide 27.2, Anion Gap 7, BUN 27 H, Creatinine 2.23 H, Estim Creat Clear Calc 20.02 L, Est GFR (MDRD) Non-Af 29 L, BUN/Creatinine Ratio 12.2, Glucose 100 H, Calcium 8.0 Microbiology: Microbiology 02/23/25 17:24 Urine, Clean Catch Urine Culture - Final GPC Poss Enterococcus sp D/C Instructions DC O2, CPAP, BIPAP Needs Home O2 Discharge instructions: No Meaningful Use Info Meaningful Use Meaningful Use Diagnoses (Choose all that apply): None applicable Ischemic Stroke Statin Dosing Therapy Reference: STATIN DOSE THERAPY REFERENCE: * Patients > 75 years receive moderate or high dose statin therapy. * Patients 75 years or YOUNGER should receive HIGH intensity statin dose unless contraindicated. You will be required to document reason for non-treatment if statin daily dose does not meet guidelines. HIGH DOSE STATIN THERAPY DAILY Atorvastatin > than or = to 40 mg Rosuvastatin > than or = to 20 mg Amlodipine + Atorvastatin > than or = to 2.5/40 mg Ezetimibe + Simvastatin 10/80 mg Simvastatin 80mg Discharge Plan Admission Admit Date/Time: 02/23/25 18:29 Primary Reason for Your Visit: Small bowel obstruction, resolved Attending Provider: Drew Morton Primary Care Provider: César Chinchilla Consulting Providers: Kings King; Emy Willard Instructions Additional Instructions / Restrictions: Follow-up with your doctor in the outpatient setting. Return with worsening symptoms and concerns. Your potassium was normal here today. Ensure that you are hydrating orally with plenty of fluids. Use the prescription that was sent for nausea by your doctor already as prescribed. 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 Discharge Orders/Prescriptions Prescriptions: New dicyclomine 20 mg tablet 20 mg PO TID PRN (Reason: abdominal pain) Qty: 20 0RF Continued tamsulosin 0.4 mg capsule 0.4 mg PO BID ascorbic acid (vitamin C) 500 mg tablet 500 mg PO BID finasteride 5 mg tablet 5 mg PO DAILY trazodone 50 mg tablet 25 mg PO QHS pantoprazole 20 mg tablet,delayed release (DR/EC) 20 mg PO DAILY cholecalciferol (vitamin D3) [Vitamin D3] 25 mcg (1,000 unit) Capsule 1,000 unit PO QHS melatonin 3 mg Tablet 3 mg PO QHS PRN PRN (Reason: Insomnia) Qty: 0 0RF nitroglycerin 0.4 mg Tablet, Sublingual 0.4 mg sublingual Q5M PRN (Reason: Cardiac/Chest Pain) Qty: 0 0RF menthol [Blue Gel] 2 % Gel 1 applic topical TID PRN PRN (Reason: Arthritis Pain 1-10) Qty: 0 0RF acetaminophen 500 mg Tablet 1,000 mg PO Q6H PRN PRN (Reason: Pain Score 1-10) Qty: 0 0RF ferrous sulfate [Feosol] 325 mg (65 mg iron) tablet 325 mg PO QHS levothyroxine 50 mcg Tablet 50 mcg PO DAILY loratadine [Claritin] 10 mg tablet 10 mg PO .q48 atorvastatin 40 mg tablet 40 mg PO QHS Qty: 30 11RF ranolazine 500 mg tablet extended release 12 hr 500 mg PO BID Qty: 60 11RF diltiazem HCl [Cardizem CD] 120 mg capsule,extended release 24hr 120 mg PO QAM isosorbide mononitrate 30 mg tablet extended release 24 hr 30 mg PO QAM amiodarone 100 mg tablet 100 mg PO BID Jardiance 10 mg tablet 10 mg PO QAM furosemide 40 mg tablet 40 mg PO BIDLX Qty: 60 11RF B-complex with vitamin C Tablet 1 tab PO BID Eliquis 2.5 mg tablet 2.5 mg PO BID potassium chloride [K-Tab] 20 mEq tablet extended release 20 meq PO BID magnesium chloride [Mag 64] 1 tab PO DAILY Discontinued alum-mag hydroxide-simeth [Mag-Al Plus Extra Strength] 400-400-40 mg/5 mL Suspension 15 ml PO Q4H PRN PRN (Reason: Indigestion) Qty: 0 0RF Referrals / Follow Up: César Chinchilla MD [Primary Care Provider] - Kings King MD [Med Staff - Active Staff] - Within 2 Weeks Disposition Disposition (needs filled in before D/C Order can be placed): [facility] Charges/Coding Visit Charges Inpatient E&M: 45815 Disch Hosp >30min
--- NOTE | 2025-02-26 10:58 | PHA.DC.MR.R ---
Pharmacy [facility] Reconciliation Pharmacy Service has performed discharge medication reconciliation for this patient. The patient's discharge medication list was reviewed for discrepancies and discrepancies were resolved. Medications at Discharge Home Medications tamsulosin 0.4 mg capsule 0.4 mg PO BID PROSTATE 11/18/21 ascorbic acid (vitamin C) 500 mg tablet 500 mg PO BID SUPPLEMENT 07/20/22 finasteride 5 mg tablet 5 mg PO DAILY PROSTATE 08/05/22 cholecalciferol (vitamin D3) 25 mcg (1,000 unit) capsule (Vitamin D3) 1,000 unit PO QHS SUPPLEMENT 02/19/23 trazodone 50 mg tablet 25 mg PO QHS INSOMNIA 02/28/24 ferrous sulfate 325 mg (65 mg iron) tablet (Feosol) 325 mg PO QHS ANEMIA 03/20/24 levothyroxine 50 mcg tablet 50 mcg PO DAILY THYROID 03/20/24 pantoprazole 20 mg tablet,delayed release 20 mg PO DAILY Gerd 08/28/24 melatonin 3 mg tablet 3 mg PO QHS PRN PRN Insomnia #0 tabs 12/17/24 menthol 2 % topical gel (Blue Gel) 1 applic topical TID PRN PRN Arthritis Pain 1-10 #0 grams 12/17/24 nitroglycerin 0.4 mg sublingual tablet 0.4 mg sublingual Q5M PRN Cardiac/Chest Pain #0 tabs 12/17/24 loratadine 10 mg tablet (Claritin) 10 mg PO .q48 allergies 12/28/24 acetaminophen 500 mg tablet 1,000 mg (2 x 500 mg) PO Q6H PRN PRN Pain Score 1-10 #0 tabs 01/02/25 atorvastatin 40 mg tablet 40 mg PO QHS cholesterol #30 tabs 01/14/25 ranolazine 500 mg tablet,extended release,12 hr 500 mg PO BID heart health #60 tabs 01/14/25 B-complex with vitamin C 1 tab PO BID supplement 01/16/25 amiodarone 100 mg tablet 100 mg PO BID heart 01/16/25 apixaban 2.5 mg tablet (Eliquis) 2.5 mg PO BID blood thinner 01/16/25 diltiazem HCl 120 mg capsule,extended release 24 hr (Cardizem CD) 120 mg PO QAM heart 01/16/25 empagliflozin 10 mg tablet (Jardiance) 10 mg PO QAM kidney 01/16/25 furosemide 40 mg tablet 40 mg PO BIDLX diuretic #60 tabs 01/16/25 isosorbide mononitrate 30 mg tablet,extended release 24 hr 30 mg PO QAM angina 01/16/25 magnesium chloride 1 tab PO DAILY supplement 01/16/25 potassium chloride 20 mEq tablet,extended release (K-Tab) 20 meq PO BID supplement 01/16/25 dicyclomine 20 mg tablet 20 mg PO TID PRN abdominal pain #20 tabs 02/23/25
--- NOTE | 2025-02-26 11:04 | CASEMGMT ---
Patient is ready for discharge to [facility] TCU. SW notified patient. SW also called and notified patient's sister Olivia and sister in law Neelima via voice mail. Plan: d/c to [facility] TCU under skilled level of care. Mercy RODRIGUES
== END 2025-02-26 11:54 | disposition skilled nursing facility (03) | DRG 377 ==
LOC: ED 16:40 → PCU 19:00
PROVIDERS: Admitting Provider Internal Medicine; Emergency Provider Emergency Medicine; PCP Family Medicine; Visit Provider Internal Medicine
DX: K92.2 Gastrointestinal hemorrhage, unspecified (principal); I50.33 Acute on chronic diastolic (congestive) heart failure; E43 Unspecified severe protein-calorie malnutrition; I13.0 Hypertensive heart and chronic kidney disease with heart failure and stage 1 through stage 4 chronic kidney disease, or unspecified chronic kidney disease; N18.4 Chronic kidney disease, stage 4 (severe); N13.8 Other obstructive and reflux uropathy; Z68.1 Body mass index [BMI] 19.9 or less, adult; I48.0 Paroxysmal atrial fibrillation; J44.9 Chronic obstructive pulmonary disease, unspecified; F32.A Depression, unspecified; E03.9 Hypothyroidism, unspecified; E78.00 Pure hypercholesterolemia, unspecified; I25.10 Atherosclerotic heart disease of native coronary artery without angina pectoris; K21.9 Gastro-esophageal reflux disease without esophagitis; G47.33 Obstructive sleep apnea (adult) (pediatric); I25.2 Old myocardial infarction; F41.9 Anxiety disorder, unspecified; I95.1 Orthostatic hypotension; Z95.0 Presence of cardiac pacemaker; Z79.890 Hormone replacement therapy; Z95.5 Presence of coronary angioplasty implant and graft; N40.1 Benign prostatic hyperplasia with lower urinary tract symptoms; Z79.01 Long term (current) use of anticoagulants; Z99.89 Dependence on other enabling machines and devices; Z79.899 Other long term (current) drug therapy; R79.89 Other specified abnormal findings of blood chemistry; R93.3 Abnormal findings on diagnostic imaging of other parts of digestive tract
CPT/HCPCS: 36415; 74177; 74250; 80048; 80053; 81001; 83605; 83690; 83735; 83880; 84443; 84484; 85025; 87086; 87088; 93005; 97162; 97166; 97530; 97535; 99284; Q9967; A4216; J2405

== ENCOUNTER 2025-02-26 12:03 | Inpatient (IN) | payer MEDICARE, OTHER, SELFPAY ==
[2025-02-26 12:11] VITALS: BP 125/77; PULSE 60; RESP 17; TEMP 36.3; O2SAT 98
[2025-02-26 12:28] VITALS: BMI 17.6
--- NOTE | 2025-02-26 12:53 | NURSING ---
Promotion Officer Note; Activity asset: Oscar Mcgregor has been on TCU in the past and remains independent in his choice of daily activities. He prefers to have the newspaper everyday, watch tv and rest. He welcomes visits from the Sucker Machine Operator and therapy dog. His sister will bring in items from home he may need or want. Staff will remind him of weekly activities and respect his right to say no.
--- NOTE | 2025-02-26 12:53 | NURSING ---
Outsole Skiver Note; Activity asset: Oscar Mcgregor has been on TCU in the past and remains independent in his choice of daily activities. He prefers to have the newspaper everyday, watch tv and rest. He welcomes visits from the Fuel Cell Systems Engineer and therapy dog. His sister will bring in items from home he may need or want. Staff will remind him of weekly activities and respect his right to say no.
[2025-02-26] MEDS: Potassium Chloride Oral Tablet 20 MEQ PO (17:16)
[2025-02-26] MEDS: Ensure Plus High Protein 120 ML LIQUID PO (17:16)
--- NOTE | 2025-02-26 20:20 | PCM.HP.STD ---
[facility] - General General Date of Admission: 02/26/25 Date of Service: 02/26/25 Chief Complaint: Here for rehabilitation. HPI Narrative RICHIE HANSEN, is a 84 Male who presents with followin02/23/2025 [facility] ED weakness. Weakness, nausea/vomiting, lightheaded, abdominal pain, recent pacemaker placement. Creatinine 3.07, BNP 10,586. CT abdomen/pelvis showed small bowel intussusception versus enteritis. Feels better after IV fluids. Tried to walk, vomited, orthostatic vital signs positive, more IV fluids given. Dr. King recommended NPO. 02/23/2025 Admit [facility]. Consult General Surgery, NPO, for intussusception, enteritis. Hold Lasix, give IV fluids for orthostasis. Urinalysis negative for UTI. 02/24/2025 Nausea, hiccups for 3 days, Abdominal pain for 1-2 months. Continue IV fluids, NPO for intussusception, enteritis. Continue IV fluids for orthostasis. Troponin trending down. SBFT negative for intussusception, negative bowel obstruction. 02/25/2025 Advance diet from clear liquids to full liquids. 02/25/2025 Multiple bowel movements, SBFT contrast reaching rectum. 02/26/2025 No nausea, vomiting, No abdominal pain overnight, abdominal pain resolved. Tolerating full liquids, advance to regular diet. CT findings may have been peristalsis. 02/26/2025 Admit to TCU with debility, here for rehabilitation, strengthening, prior to discharge home alone. [facility] Medical History (Updated 02/26/25 @ 20:[address] Marcus Samuel MD) Elevated troponin COPD (chronic obstructive pulmonary disease) Iron deficiency anemia Acute kidney injury Abnormal CT scan, gastrointestinal tract Angiodysplasia of stomach Acute respiratory failure Bright red blood per rectum History of atrial fibrillation Chronic kidney disease Acute lower GI bleeding Atrial fibrillation Bradycardia CKD (chronic kidney disease) stage 4, GFR 15-29 ml/min Acute on chronic heart failure with reduced ejection fraction and diastolic dysfunction Pulmonary hypertension Combined systolic and diastolic congestive heart failure Coronary artery disease 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 Complete heart 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 Intermittent complete heart block History of atrial fibrillation COPD (chronic obstructive pulmonary disease) with emphysema CHF (congestive heart failure) Hypoxia Chronic kidney disease Chronic anticoagulation Acute dyspnea Hypotension Abnormal abdominal ultrasound Persistent atrial fibrillation Hearing loss, left Hearing loss, right Anxiety Chronic pain Rheumatoid arthritis Irregular heart beat Hypertension Hypothyroidism Hiatal hernia Acute constipation Acute exacerbation of chronic low back pain Wears glasses Thyroid disease Ambulates with cane Arthritis History of renal disease Anemia High cholesterol Easy bruising Excessive bleeding History of leukemia Back pain Difficulty chewing History of diverticulitis Gastric reflux Sleep apnea History of pain when walking History of edema History of echocardiogram History of stress test Cardiology follow-up encounter History of heart attack Nausea and vomiting Chronic anemia Diarrhea Colitis Sleep apnea Acute kidney injury superimposed on chronic kidney disease On amiodarone therapy Elevated LFTs Thoracic aortic aneurysm (TAA) Chronic heart failure with preserved ejection fraction (HFpEF) Nonrheumatic mitral (valve) insufficiency Atypical atrial flutter (12/2020) Elevated liver enzymes Debility Dysphagia Osteoarthritis History of colon polyps Cancer Kidney stones Kidney disease Non-smoker CPAP (continuous positive airway pressure) dependence Atrial fibrillation Myocardial infarct Chronic renal insufficiency Acute gastrointestinal bleeding Chronic kidney disease Benign prostatic hyperplasia Stage 3b chronic kidney disease GI bleed (2012) Non-rheumatic tricuspid valve insufficiency Secondary pulmonary arterial hypertension Essential (primary) hypertension BPH (benign prostatic hyperplasia) History of hyperthyroidism Paroxysmal atrial fibrillation 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 heart disease of [place] coronary artery without angina pectoris HLD (hyperlipidemia) Home Medications ?Medication ?Instructions ?Recorded ?Last Taken ?Type tamsulosin 0.4 mg capsule 0.4 mg PO BID PROSTATE 11/18/21 02/26/25 History ascorbic acid (vitamin C) 500 mg 500 mg PO BID SUPPLEMENT 07/20/22 02/26/25 History tablet finasteride 5 mg tablet 5 mg PO DAILY PROSTATE 08/05/22 02/26/25 History cholecalciferol (vitamin D3) 25 1,000 unit PO QHS SUPPLEMENT 02/19/23 02/22/25 History mcg (1,000 unit) capsule (Vitamin D3) trazodone 50 mg tablet 25 mg PO QHS INSOMNIA 02/28/24 02/25/25 History ferrous sulfate 325 mg (65 mg 325 mg PO QHS ANEMIA 03/20/24 02/22/25 History iron) tablet (Feosol) levothyroxine 50 mcg tablet 50 mcg PO DAILY THYROID 03/20/24 02/26/25 History pantoprazole 20 mg tablet,delayed 20 mg PO DAILY Gerd 08/28/24 02/26/25 History release melatonin 3 mg tablet 3 mg PO QHS PRN PRN Insomnia #0 12/17/24 Unknown Rx tabs menthol 2 % topical gel (Blue Gel) 1 applic topical TID PRN PRN 12/17/24 12/27/24 Rx Arthritis Pain 1-10 #0 grams nitroglycerin 0.4 mg sublingual 0.4 mg sublingual Q5M PRN 12/17/24 Unknown Rx tablet Cardiac/Chest Pain #0 tabs loratadine 10 mg tablet (Claritin) 10 mg PO .q48 allergies 12/28/24 02/22/25 History acetaminophen 500 mg tablet 1,000 mg (2 x 500 mg) PO Q6H PRN 01/02/25 Unknown Rx PRN Pain Score 1-10 #0 tabs atorvastatin 40 mg tablet 40 mg PO QHS cholesterol #30 tabs 01/14/25 02/25/25 Rx ranolazine 500 mg tablet,extended 500 mg PO BID heart health #60 tabs 01/14/25 02/26/25 Rx release,12 hr B-complex with vitamin C 1 tab PO BID supplement 01/16/25 02/22/25 History amiodarone 100 mg tablet 100 mg PO BID heart 01/16/25 02/26/25 History apixaban 2.5 mg tablet (Eliquis) 2.5 mg PO BID blood thinner 01/16/25 02/23/25 History diltiazem HCl 120 mg 120 mg PO QAM heart 01/16/25 02/26/25 History capsule,extended release 24 hr (Cardizem CD) empagliflozin 10 mg tablet 10 mg PO QAM kidney 01/16/25 02/26/25 History (Jardiance) furosemide 40 mg tablet 40 mg PO BIDLX diuretic #60 tabs 01/16/25 02/26/25 Rx isosorbide mononitrate 30 mg 30 mg PO QAM angina 01/16/25 02/26/25 History tablet,extended release 24 hr magnesium chloride 1 tab PO DAILY supplement 01/16/25 02/26/25 History potassium chloride 20 mEq 20 meq PO BID supplement 01/16/25 02/26/25 History tablet,extended release (K-Tab) dicyclomine 20 mg tablet 20 mg PO TID PRN abdominal pain 02/23/25 Unknown Rx #20 tabs Allergy/AdvReac Type Severity Reaction Status Date / Time diclofenac Allergy rash Verified 02/23/25 11:09 prednisone Allergy Rash Verified 02/23/25 11:09 Family History Father Cancer Prostate cancer Mother Hypertension Sister Hypertension Surgical History Status post placement of cardiac pacemaker History of colonoscopy (03/26/24) History of back surgery History of cardiac catheterization History of esophagogastroduodenoscopy (EGD) History of cardioversion (06/18/19) History of radiofrequency ablation procedure for cardiac arrhythmia (11/11/11) History of electrophysiologic study (08/08/00) History of left heart catheterization (07/17/12) History of hemorrhoidectomy History of Zenaida fundoplication History of coronary artery stent placement (08/04/00) History of hernia repair History of back surgery Social History household members: none housing: house Smoking Status: Never smoker alcohol intake: never substance use type: does not use caffeine: No ROS Constitutional Constitutional: Reports weakness; Denies chills, fever(s) or weight gain ENT HEENT: Denies headache(s), nasal congestion or nasal discharge Cardiovascular Cardiovascular: Denies chest pain or palpitations Respiratory/Chest Respiratory/Chest: Denies cough, excessive phlegm production or shortness of breath with exertion Gastrointestinal Gastrointestinal: Denies abdominal pain, nausea or vomiting Genitourinary Genitourinary: Denies dysuria Musculoskeletal Musculoskeletal: Denies joint pain or joint swelling Integumentary Integumentary: Denies rash or wounds Neurologic Neurologic: Denies focal weakness, numbness or tingling Psychiatric Psychiatric: Denies anxiety, auditory hallucinations, depression, homicidal ideation or suicidal ideation Vital Signs Vital Signs Vital Signs: 02/26/25 12:11 02/26/25 13:29 Temperature 97.4 F L Temperature Source Temporal Pulse Rate 60 Pulse Rhythm Regular Pulse Strength Normal (2+) Respiratory Rate 17 Respiratory Effort Normal Non-Labored Respiratory Depth Normal Respiratory Pattern Normal Blood Pressure 125/77 H Blood Pressure Mean 93 Blood Pressure Source Monitor Blood Pressure Position Semi-Fowlers Blood Pressure Location Right Arm Pulse Ox 98 Oxygen Delivery Method Room Air Room Air Weight Weight: 52.617 kg Body Mass Index (BMI) 17.6 Physical Exam Const alert General Appearance: cooperative HEENT normocephalic Eyes PERRL and EOMs intact bilaterally Neck supple, no JVD and no carotid bruits Resp normal respiratory effort, normal air movement and clear to auscultation bilaterally Cardio regular rate and regular rhythm GI normal to inspection, nondistended, normoactive bowel sounds, non-tender and non-distended Extremity normal capillary refill General Extremity: Negative for edema Skin no rashes or lesions noted General Skin Exam: no breakdown Psych affect normal Appearance: appropriate Assessment & Plan Assessment/Plan (1) Debility: (2) Abdominal pain: (3) Intussusception: (4) Enteritis: (5) Orthostatic hypotension: (6) Acute kidney injury: (7) Acute on chronic heart failure with preserved ejection fraction (HFpEF): (8) Elevated troponin: (9) COPD (chronic obstructive pulmonary disease): (10) Iron deficiency anemia: QUALIFIERS: Iron deficiency anemia type: unspecified iron deficiency Qualified Code(s): D50.9 - Iron deficiency anemia, unspecified (11) HLD (hyperlipidemia): QUALIFIERS: Hyperlipidemia type: unspecified Qualified Code(s): E78.5 - Hyperlipidemia, unspecified (12) BPH (benign prostatic hyperplasia): (13) Coronary artery disease: (14) Hypothyroidism: (15) GERD (gastroesophageal reflux disease): (16) Insomnia: (17) Hypokalemia: (18) Obstructive sleep apnea: (19) Atrial fibrillation: PLAN: Plan 84 year old male with below past medical history hospitalized abdominal pain, intussusception ruled out, complicated by acute kidney injury, orthostatic hypotension, acute on chronic HFpEF, elevated troponin, admitted to TCU with debility, here for rehabilitation, strengthening, prior to discharge home alone. Debility - PT/OT. Pain - Tylenol 1000mg q6 prn pain (1-10), BlueGel topical tid prn. Bowel - senna/colace 1 tablet bid, Magnesium citrate 300mL daily prn. Adult immunization - Administer pneumonia vaccine, covid vaccine, flu vaccine as appropriate. DVT prophylaxis - Eliquis. Atrial fibrillation - Diltiazem 120mg qam, Amiodarone 100mg bid, Eliquis 2.5mg bid. Coronary artery disease - Isosorbide 30mg daily, Ranexa 500mg bid, Eliquis 2.5mg bid, NTG 0.4mg sl q5m prn. Iron deficiency anemia - Ferrous sulfate 325mg qhs. Vitamin C 500mg bid. Hyperlipidemia - Atorvastatin 40mg qhs. Vitamin D deficiency - D3 25mcg qhs. Abdominal pain - Bentyl 20mg tid prn. Chronic HFpEF - Jardiance 10mg daily, Furosemide 40mg bidlx. Nutrition - Ensure Plus 120mL tidcm. BPH - Finasteride 5mg daily, Tamsulosin 0.4mg bid. Hypothyroidism - Levothyroxine 50mcg daily. Allergic rhinitis - Loratadine 10mg q48. Hypomagnesemia - Magnesium chloride 64mg daily. Insomnia - Melatonin 3mg qhs prn. GERD - Pantoprazole 20mg daily. Hypokalemia - KCL 20meq bidcm. Leg cramps Vitamin B complex 1 capsule bid. The following psychotropic medication was present on admission: Trazodone 25mg qhs. Psychotropic medication therapy is indicated for a diagnosis of: Insomnia. Based on my clinical evaluation, continuation of the medication is necessary at this time. Gradual dose reduction plan (select one): ____ GDR will be attempted. Will monitor patient symptoms and behaviors in response to GDR. __x__ GRD contraindicated. 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
[2025-02-26] MEDS: Vitamin B Comp W-C Capsule 1 CAP PO (22:26)
[2025-02-26] MEDS: APIXABAN 2.5 MG TABLET (WCH) PO (22:31)
[2025-02-26] MEDS: Cholecalciferol (VIT D3) 25 MCG TABLET (1,000 UNITS) PO (22:33)
[2025-02-26] MEDS: Senna/Docusate Sodium 1 Tablet PO (22:34)
[2025-02-27 05:30] VITALS: BP 134/75; PULSE 60
[2025-02-27 06:08] LABS: Hematocrit 32.4 % (40-54); Hemoglobin 11.1 g/dL (13.0-16.5); Immature Granulocytes Count 0.320 X10^3/uL (0.0-0.0); Mean Corp Hgb Conc 34.3 g/dL (32-36); Mean Corpuscular Volume 107.6 fL (80-94); Mean Platelet Vol. 10.2 fl (6.2-12.0); NRBC Flagged by Analyzer 0 % (0-5); POSITIVE DIFFERENTIAL YES; Platelet Count 169 K/mm3 (150-450); RBC Distribution Width CV 16.0 % (11.6-14.6); RBC Distribution Width SD 63.7 fl (35.1-43.9); Red Blood Count 3.01 M/mm3 (4.6-6.2); White Blood Count 10.1 K/mm3 (4.4-11.0)
[2025-02-27 06:33] LABS: Anion Gap 10 (5-15); BUN 31 mg/dL (4-19); BUN/Creat Ratio 14.2 RATIO (10-20); Calcium,Total 7.9 mg/dL (7.6-11.0); Carbon Dioxide 24.5 mmol/L (21.0-32.0); Chloride 104 mmol/L (98-108); Estimated Creatinine Clearance 19.28 ml/min (50-250); Glucose 85 mg/dL (70-99); Potassium 3.8 mmol/L (3.3-5.1)
--- NOTE | 2025-02-27 07:48 | CASEMGMT ---
Social Work SW met with pt and completed initial assessment. Contacts verified and pt confirms wished to be DNRCCA. SW updated pt to Medicare benefit and pt responsibility to contact secondary insurance to confirm copay coverage. Pt lives at home alone and plans to return home at time of discharge. SW to follow for dc planning. LEEANN Guerrero
[2025-02-27] MEDS: Ensure Plus High Protein 120 ML LIQUID PO ×3 (09:26→16:51)
[2025-02-27] MEDS: Potassium Chloride Oral Tablet 20 MEQ PO ×2 (09:26→16:52)
[2025-02-27] MEDS: Vitamin B Comp W-C Capsule 1 CAP PO ×2 (09:27→20:54)
[2025-02-27] MEDS: APIXABAN 2.5 MG TABLET (WCH) PO ×2 (09:28→20:58)
[2025-02-27] MEDS: Magnesium Chloride 64 MG Delay Rel.Tablet PO (09:29)
[2025-02-27] MEDS: Senna/Docusate Sodium 1 Tablet PO ×2 (09:29→20:56)
--- NOTE | 2025-02-27 13:40 | PCM.PN.DRR ---
Documented by User: Shireen Marcus 02/27/25 14:29 TCU RX Drug Regimen Review Subjective/Objective Subjective/Objective Subjective: TCU Admission. 84 YOM presented to ER with weakness. Hospitalized for abdominal pain, intussusception ruled out, complicated by acute kidney injury, orthostatic hypotension, acute on chronic HFpEF, elevated troponin. Admitted to TCU with debility for strengthening and rehabilitation. Objective: Allergies diclofenac Allergy (Verified 02/23/25 11:09) rash prednisone Allergy (Verified 02/23/25 11:09) Rash Current Medications Generic Name Dose Route Start Last Admin Trade Name Freq PRN Reason Stop Dose Admin Acetaminophen 1,000 mg 02/26/25 12:39 Acetaminophen 500 Mg Tablet PO Q6H PRN PRN Pain Score 1-10 Amiodarone HCl 100 mg 02/26/25 22:00 02/27/25 09:27 Amiodarone 200 Mg Tablet PO 100 mg BID ILEANA Administration Apixaban 2.5 mg 02/26/25 22:00 02/27/25 09:28 Apixaban 2.5 Mg Tablet ([facility]) PO 2.5 mg BID ILEANA Administration Ascorbic Acid 500 mg 02/26/25 22:00 02/27/25 09:29 Ascorbic Acid 500 Mg Tablet PO 500 mg BID ILEANA Administration Atorvastatin Calcium 40 mg 02/26/25 22:00 02/26/25 22:31 Atorvastatin Calcium 40 Mg Tablet PO 40 mg QHS ILEANA Administration Cholecalciferol 25 mcg 02/26/25 22:00 02/26/25 22:33 Cholecalciferol (Vit D3) 25 Mcg Tablet (1,000 Units) PO 25 mcg QHS ILEANA Administration Dicyclomine HCl 20 mg 02/26/25 13:00 Dicyclomine 10 Mg Capsule PO TID PRN abdominal pain Diltiazem HCl 120 mg 02/27/25 10:00 02/27/25 09:27 Diltiazem Cd 120 Mg Capsule PO 120 mg QAM ILEANA Administration Protocol Empagliflozin 10 mg 02/27/25 10:00 02/27/25 09:29 Empagliflozin 10 Mg Tablet PO 10 mg QAM ILEANA Administration Ferrous Sulfate 325 mg 02/26/25 22:00 02/26/25 22:31 Ferrous Sulfate 325 Mg Tablet PO 325 mg QHS ILEANA Administration Finasteride 5 mg 02/27/25 10:00 02/27/25 09:29 Finasteride 5 Mg Tablet PO 5 mg DAILY ILEANA Administration Furosemide 40 mg 02/26/25 14:00 02/27/25 05:29 Furosemide 40 Mg Tablet PO 40 mg BIDLX ILEANA Administration Protocol Isosorbide Mononitrate 30 mg 02/27/25 10:00 02/27/25 09:28 Isosorbide Mononitrate 30 Mg Tablet PO 30 mg QAM ILEANA Administration Protocol Levothyroxine Sodium 50 mcg 02/27/25 06:00 02/27/25 05:29 Levothyroxine 50 Mcg Tablet PO 50 mcg DAILY@0600 ILEANA Administration Loratadine 10 mg 02/27/25 10:00 02/27/25 09:27 Loratadine 10 Mg Tablet PO 10 mg Q48 ILEANA Administration Magnesium Chloride 64 mg 02/27/25 10:00 02/27/25 09:29 Magnesium Chloride 64 Mg Delay Rel.Tablet PO 64 mg DAILY ILEANA Administration Magnesium Citrate 300 ml 02/26/25 20:48 Magnesium Citrate 300 Ml PO DAILY PRN Constipation Melatonin 3 mg 02/26/25 12:45 Melatonin 3 Mg Tablet PO QHS PRN PRN Insomnia Menthol 1 applic 02/26/25 12:45 Menthol 226.8 Gm Jar TOPICAL TID PRN PRN Arthritis Pain 1-10 Multivitamins 1 cap 02/26/25 22:00 02/27/25 09:27 Vitamin B Comp W-C Capsule PO 1 cap BID ILEANA Administration Nitroglycerin 0.4 mg 02/26/25 13:03 Nitroglycerin (Inpatient Use) 0.4 Mg Tab.Subl SL Q5M PRN CARDIAC/CHEST PAIN Nutritional Formula (Lactose Free) 120 ml 02/26/25 17:45 02/27/25 12:03 Ensure Plus High Protein 120 Ml Liquid PO 120 ml TIDCM ILEANA Administration Ondansetron HCl 8 mg 02/27/25 07:35 02/27/25 07:59 Ondansetron Odt 4 Mg Tablet PO 8 mg Q8H PRN PRN Administration NAUSEA/VOMITING Pantoprazole Sodium 20 mg 02/27/25 10:00 02/27/25 09:29 Pantoprazole Sodium 20 Mg Tablet PO 20 mg DAILY ILEANA Administration Potassium Chloride 20 meq 02/26/25 17:00 02/27/25 09:26 Potassium Chloride Oral Tablet 20 Meq PO 20 meq BIDCM ILEANA Administration Ranolazine 500 mg 02/26/25 22:00 02/27/25 09:29 Ranolazine 500 Mg Tablet PO 500 mg BID ILEANA Administration Senna/Docusate Sodium 1 tablet 02/26/25 22:00 02/27/25 09:29 Senna/Docusate Sodium 1 Tablet PO 1 tablet BID ILEANA Administration Tamsulosin HCl 0.4 mg 02/26/25 22:00 02/27/25 09:29 Tamsulosin Hcl 0.4 Mg Capsule PO 0.4 mg BID ILEANA Administration Trazodone HCl 25 mg 02/26/25 22:00 02/26/25 22:29 Trazodone 50 Mg Tablet PO 25 mg QHS ILEANA Administration Tuberculin PPD 0.1 ml 03/06/25 10:00 Tuberculin,Purif.Prot.Deriv. 50 Tu/Ml Vial ID 03/06/25 10:01 X1 ONE Problem List Obstructive sleep apnea (Acute) Iron deficiency anemia (Acute) COPD (chronic obstructive pulmonary disease) (Chronic) Elevated troponin (Acute) Acute on chronic heart failure with preserved ejection fraction (HFpEF) (Acute) Acute kidney injury (Acute) Enteritis (Acute) Intussusception (Acute) Insomnia (Acute) GERD (gastroesophageal reflux disease) (Acute) Atrial fibrillation (Acute) BPH (benign prostatic hyperplasia) (Acute) Debility (Acute) Hypokalemia (Acute) Coronary artery disease (Acute) Hypothyroidism (Acute) HLD (hyperlipidemia) (Chronic) Vital Signs Temp Pulse Resp BP Pulse Ox O2 Del Method 97.4 F L 60 17 134/75 H 98 Room Air 02/26/25 12:11 02/27/25 05:30 02/26/25 12:11 02/27/25 05:30 02/26/25 12:11 02/27/25 09:36 Oxygen Delivery Method Room Air Weight: 52.617 kg Body Mass Index (BMI) 17.6 Sodium 139 mmol/L (133-145) 02/27/25 05:16 Potassium 3.8 mmol/L (3.3-5.1) 02/27/25 05:16 Chloride 104 mmol/L (98-108) 02/27/25 05:16 Carbon Dioxide 24.5 mmol/L (21.0-32.0) 02/27/25 05:16 Anion Gap 10 (5-15) 02/27/25 05:16 BUN 31 mg/dL (4-19) H 02/27/25 05:16 Creatinine 2.16 mg/dL (0.70-1.20) H 02/27/25 05:16 Est GFR (MDRD) Non-Af 30 (>60) L 02/27/25 05:16 BUN/Creatinine Ratio 14.2 RATIO (10-20) 02/27/25 05:16 Glucose 85 mg/dL (70-99) 02/27/25 05:16 Assessment/Plan: 1. Pain: acetaminophen 1000mg PO Q6H PRN pain 1-10 and Menthol blue gel topical TID PRN arthritis pain 1-10. No PRN doses given. Please continue to monitor for PRN usage and increased pain. 2. Bowel: senna/docusate 1T PO BID and magnesium citrate 300mL PO daily PRN constipation. No PRN doses given. Please continue to monitor for constipation and PRN usage. Last documented bowel movement was 02/26/25. 3. Atrial fibrillation/CAD: diltiazem 120mg PO daily, amiodarone 100mg PO BID, isosorbide mononitrate 30mg PO daily, ranolazine 500mg PO BID, nitroglycerin 0.4mg SL Q5M PRN chest pain (no doses given) and apixaban 2.5mg PO BID (age >80 and weight <60kg). Please continue to monitor HR (last 60), BP (last 134/75, 125/77), S/S of bleeding, hemoglobin (last 11.1g/dL), sodium (last 139mmol/L), potassium (last 3.8mmol/L), SOB, chest pain, PRN usage, headache. 4. Chronic HFpEF: furosemide 40mg PO BIDLX and empagliflozin 10mg PO daily. Please continue to monitor for renal function, edema, potassium (last 3.8mmol/L), S/S of UTI. 5. Iron deficiency anemia: ferrous sulfate 325mg PO QHS and ascorbic acid 500mg PO BID. Please continue to monitor hemoglobin (last 11.1g/dL), dark stools, constipation, iron studies (last 08/30/24). 6. Hyperlipidemia: atorvastatin 40mg PO QHS. Please continue to monitor lipid panel (last 12/10/24), LFTs (last 02/23/25) and muscle pain. 7. Abdominal pain: dicyclomine 20mg PO TID PRN abdominal pain. No PRN doses given. Please continue to monitor for abdominal cramps and PRN usage. 8. Hypothyroidism: levothyroxine 50mcg PO daily. Please continue to monitor for TSH (last 02/24/25) and S/S of hypo/hyperthyroidism. 9. BPH: finasteride 5mg PO daily, tamsulosin 0.4mg PO BID. Please continue to monitor for S/S of BPH, BP (last 134/75). 10. GERD: pantoprazole 20mg PO daily. Please continue to monitor for S/S of GERD and diarrhea (Tomasa). 11. Hypokalemia: potassium chloride 20mEq PO BIDCM. Please continue to monitor potassium (last 3.8mmol/L). 12. Allergic rhinitis: loratadine 10mg PO Q48. Please continue to monitor for allergies and renal function. 13. Insomnia: melatonin 3mg PO QHS PRN insomnia. No PRN doses given. Please continue to monitor for insomnia and PRN usage. 14. Leg cramps/vitamin D deficiency/hypomagnesemia: cholecalciferol 25mcg PO QHS, vitamin B complex 1C PO BID and magnesium chloride 64mg PO daily. Please consider stopping magnesium due to the elevated magnesium level of 1.7mg/dL on 02/24/25. Thanks. Please consider Please continue to monitor vitamin D (last 12/20/24). 15. Nausea/vomiting: ondansetron 8mg PO Q8 PRN nausea/vomiting. One PRN dose has been given. Please continue to monitor for PRN usage, nausea and vomiting. Assessment/Plan for indications treated with psychotropic medications: 1. Insomnia: trazodone 25mg PO QHS. Please see physician note regarding GDR. Monitor for drowsiness, dizziness or confusion, dry mouth, constipation, symptoms of serotonin syndrome (including agitation, confusion, hyperreflexia, rigidity/myoclonus, tremor, tachycardia, tachypnea), suicidal thoughts or behaviors (Boxed Warning). Monitor HR (can cause bradycardia or tachycardia). HR since admission = 60. Monitor for orthostatic hypotension, including postural dizziness, syncope or falls. Check orthostatic vital signs if suspicion of orthostasis. Monitor for efficacy including resident symptoms, behaviors and indications of distress. Monitor for tolerability including mental status, cognition, excessive sleepiness, withdrawal or decreased participation in activities and decline in physical functioning. Maximize use of nonpharmacologic/behavioral interventions to facilitate dose reduction or discontinuation as appropriate. Please evaluate the appropriateness of GDR unless contraindicated. If appropriate, GDR should be attempted in 2 separate quarters within the first year of use or admission to TCU. If GDR attempted, monitor resident symptoms/behaviors. Medical chart and medication regimen reviewed. The following medication irregularities or issues were identified: 1. Magnesium chloride 64mg PO daily. Please consider stopping magnesium due to the elevated magnesium level of 1.7mg/dL on 02/24/25. Thanks. Date Date of Note: 02/27/25 Documented by User: Dr. Marcus Samuel MD 02/27/25 14:28 TCU RX Drug Regimen Review Provider Comments Provider responsibility Provider Comments to Recommendations by Pharmacy Agree
[2025-02-27] MEDS: Tuberculin,Purif.prot.deriv. 50 TU/ML Vial 0.1 ML ID (13:49)
[2025-02-27 16:00] VITALS: BP 128/66; PULSE 60; RESP 18; TEMP 36.4; O2SAT 98
[2025-02-27 19:21] VITALS: BP 133/74; BP 134/72; BP 136/74; PULSE 60
--- NOTE | 2025-02-27 19:22 | NURSING ---
has had complaints of dizziness and nausea. new order for zofran 8 mg q 8 hours. new order to complete orthostatic blood pressures.
--- NOTE | 2025-02-27 19:22 | NURSING ---
has had complaints of dizziness and nausea. new order for zofran 8 mg q 8 hours. new order to complete orthostatic blood pressures.
--- NOTE | 2025-02-27 19:59 | NURSING ---
Addendum entered by [place] Medina 02/27/25 20:13: Discussed Midodrine with patient including uses, side effects, and risks relating to his history of HTN. Patient not interested in trying this medication at this time d/t potential risks in causing increasing blood pressures. Patient appreciated the time to discuss options. Patient educated regarding switching positions to wait until dizziness resolves before attempting to stand or ambulate d/t risk of falls. Patient verbalized understanding. Original Note: Consulted Dr. Samuel via telephone regarding orthostatic vitals results. Per patient, he gets dizzy and lightheaded at times along with feeling weak upon changing positions. Per Dr. Samuel, NNO, however, discuss medication, Midodone, and its side effects with patient for potential treatment.
[2025-02-27] MEDS: Cholecalciferol (VIT D3) 25 MCG TABLET (1,000 UNITS) PO (20:55)
[2025-02-28 05:35] VITALS: BP 129/72; PULSE 60; O2SAT 93
[2025-02-28 09:28] VITALS: BP 106/64; PULSE 60; RESP 17; TEMP 36.9; O2SAT 99
[2025-02-28] MEDS: Potassium Chloride Oral Tablet 20 MEQ PO ×2 (09:31→17:13)
[2025-02-28] MEDS: Vitamin B Comp W-C Capsule 1 CAP PO ×2 (09:32→20:16)
[2025-02-28] MEDS: APIXABAN 2.5 MG TABLET (WCH) PO ×2 (09:33→20:13)
[2025-02-28] MEDS: Senna/Docusate Sodium 1 Tablet PO ×2 (09:34→20:14)
[2025-02-28] MEDS: Ensure Plus High Protein 120 ML LIQUID PO ×3 (09:35→17:13)
[2025-02-28 14:37] VITALS: BP 97/57; PULSE 60
--- NOTE | 2025-02-28 14:40 | NURSING ---
pt with low BP, held lasix & pt agreed. stated I peed a lot last night pt resting in recliner chairs, legs elevated. call light in reach. Ice given per pt request
--- NOTE | 2025-02-28 16:13 | CHAPLAIN ---
Type of Pastoral Visit ___ Initial Visit ___ Follow-up Visit ___ On-call Visit ___ General Patient Visit ___ Spiritual Assessment ___ Family Conference ___ Bereavement ___ Rapid Response ___ Code Blue ___ Other (describe below) Pastoral Care Referral From ___ Patient ___ Family ___ Nurse ___ Physician ___ Mechanical System Technician ___ Maritime Guard ___ Other (describe below) Sacrament/Intervention ___ Active listening ___ Anointing ___ Jainism ___ Bereavement ___ Communion ___ Jerica exploration ___ ___ Life review ___ Prayer ___ Reconciliation ___ Sacrament of Sick ___ Supportive presence ___ Wedding ___ Other (describe below) Pastoral Comments brief greeting and acknowledgement of patient as he was going to PT; offered encouraging words
--- NOTE | 2025-02-28 16:13 | CHAPLAIN ---
Type of Pastoral Visit ___ Initial Visit ___ Follow-up Visit ___ On-call Visit ___ General Patient Visit ___ Spiritual Assessment ___ Family Conference ___ Bereavement ___ Rapid Response ___ Code Blue ___ Other (describe below) Pastoral Care Referral From ___ Patient ___ Family ___ Nurse ___ Physician ___ Table Setter ___ C.O.D. Audit Clerk ___ Other (describe below) Sacrament/Intervention ___ Active listening ___ Anointing ___ Episcopalian ___ Bereavement ___ Communion ___ Jerica exploration ___ ___ Life review ___ Prayer ___ Reconciliation ___ Sacrament of Sick ___ Supportive presence ___ Wedding ___ Other (describe below) Pastoral Comments brief greeting and acknowledgement of patient as he was going to PT; offered encouraging words
[2025-02-28 20:00] VITALS: PULSE 60; RESP 16; O2SAT 97
[2025-02-28] MEDS: Cholecalciferol (VIT D3) 25 MCG TABLET (1,000 UNITS) PO (20:13)
[2025-02-28] MEDS: MENTHOL 226.8 GM JAR 1 APPLIC TOPICAL (23:31)
[2025-03-01 06:36] VITALS: BP 127/79; PULSE 60; RESP 16
[2025-03-01] MEDS: Ensure Plus High Protein 120 ML LIQUID PO ×3 (08:18→17:28)
[2025-03-01] MEDS: Potassium Chloride Oral Tablet 20 MEQ PO ×2 (08:20→17:28)
[2025-03-01] MEDS: Senna/Docusate Sodium 1 Tablet PO ×2 (08:21→19:58)
[2025-03-01] MEDS: Vitamin B Comp W-C Capsule 1 CAP PO ×2 (08:21→19:55)
[2025-03-01] MEDS: APIXABAN 2.5 MG TABLET (WCH) PO ×2 (08:22→19:57)
[2025-03-01 16:00] VITALS: BP 115/74; PULSE 60; RESP 18; TEMP 36.8; O2SAT 97
[2025-03-01 19:52] VITALS: BP 109/67; PULSE 63
[2025-03-01] MEDS: Cholecalciferol (VIT D3) 25 MCG TABLET (1,000 UNITS) PO (20:00)
[2025-03-02 05:55] VITALS: BP 141/81; PULSE 70; RESP 16
[2025-03-02] MEDS: Ensure Plus High Protein 120 ML LIQUID PO ×3 (08:21→16:58)
[2025-03-02] MEDS: Potassium Chloride Oral Tablet 20 MEQ PO ×2 (08:22→16:58)
[2025-03-02] MEDS: Vitamin B Comp W-C Capsule 1 CAP PO ×2 (08:22→20:33)
[2025-03-02] MEDS: APIXABAN 2.5 MG TABLET (WCH) PO ×2 (08:23→20:34)
[2025-03-02] MEDS: Senna/Docusate Sodium 1 Tablet PO ×2 (08:26→20:35)
[2025-03-02 10:00] VITALS: BMI 17.7
[2025-03-02 14:29] VITALS: BP 126/79; PULSE 60; RESP 18; TEMP 36.5; O2SAT 96
[2025-03-02] MEDS: Cholecalciferol (VIT D3) 25 MCG TABLET (1,000 UNITS) PO (20:35)
[2025-03-03] MEDS: Ensure Plus High Protein 120 ML LIQUID PO ×3 (08:53→17:00)
[2025-03-03] MEDS: Vitamin B Comp W-C Capsule 1 CAP PO ×2 (08:54→20:18)
[2025-03-03] MEDS: Potassium Chloride Oral Tablet 20 MEQ PO ×2 (08:54→17:03)
[2025-03-03] MEDS: APIXABAN 2.5 MG TABLET (WCH) PO ×2 (08:56→20:18)
[2025-03-03] MEDS: Senna/Docusate Sodium 1 Tablet PO ×2 (08:57→20:21)
[2025-03-03 10:00] VITALS: BMI 17.8
[2025-03-03 15:24] VITALS: BP 114/70; PULSE 60; RESP 18; TEMP 36.6; O2SAT 97
[2025-03-03] MEDS: Cholecalciferol (VIT D3) 25 MCG TABLET (1,000 UNITS) PO (20:18)
[2025-03-04] MEDS: Vitamin B Comp W-C Capsule 1 CAP PO ×2 (08:19→22:43)
[2025-03-04] MEDS: Potassium Chloride Oral Tablet 20 MEQ PO ×2 (08:19→16:56)
[2025-03-04] MEDS: Ensure Plus High Protein 120 ML LIQUID PO ×3 (08:19→16:56)
[2025-03-04] MEDS: APIXABAN 2.5 MG TABLET (WCH) PO ×2 (08:20→22:46)
[2025-03-04] MEDS: Senna/Docusate Sodium 1 Tablet PO ×2 (08:22→22:46)
--- NOTE | 2025-03-04 09:25 | NURSING ---
Offered covid vaccine, VIS provided. Resident declines.
--- NOTE | 2025-03-04 09:25 | NURSING ---
Offered covid vaccine, VIS provided. Resident declines.
[2025-03-04 10:00] VITALS: BP 122/64; PULSE 60; RESP 18; TEMP 36.4; O2SAT 97; BMI 17.8
[2025-03-04 13:11] VITALS: O2SAT 96
[2025-03-04] MEDS: Cholecalciferol (VIT D3) 25 MCG TABLET (1,000 UNITS) PO (22:46)
[2025-03-05] MEDS: Vitamin B Comp W-C Capsule 1 CAP PO ×2 (08:09→20:56)
[2025-03-05] MEDS: Potassium Chloride Oral Tablet 20 MEQ PO ×2 (08:09→16:39)
[2025-03-05] MEDS: Ensure Plus High Protein 120 ML LIQUID PO ×2 (08:09→13:05)
[2025-03-05] MEDS: APIXABAN 2.5 MG TABLET (WCH) PO ×2 (08:10→20:59)
[2025-03-05] MEDS: Senna/Docusate Sodium 1 Tablet PO ×2 (08:11→21:00)
[2025-03-05 10:00] VITALS: BP 126/77; PULSE 60; RESP 16; TEMP 36.5; O2SAT 96; BMI 18.1
--- NOTE | 2025-03-05 16:47 | CASEMGMT ---
Social Work SW completed BIMS () and PHQ-2 () for MDS assessment. Roya Sarabia CAVITY PUMP OPERATOR TAILER OFF
--- NOTE | 2025-03-05 16:47 | CASEMGMT ---
Social Work SW completed BIMS () and PHQ-2 () for MDS assessment. Roya Sarabia HUMAN RESOURCES OPERATIONS DIRECTOR ADULT LITERACY TEACHER
[2025-03-05 20:00] VITALS: PULSE 60
[2025-03-05 20:51] VITALS: BP 108/71; PULSE 60
[2025-03-05] MEDS: Cholecalciferol (VIT D3) 25 MCG TABLET (1,000 UNITS) PO (21:00)
[2025-03-05] MEDS: MENTHOL 226.8 GM JAR 1 APPLIC TOPICAL (21:08)
[2025-03-06 05:48] LABS: Hematocrit 34.1 % (40-54); Hemoglobin 11.6 g/dL (13.0-16.5); Mean Corp Hgb Conc 34.0 g/dL (32-36); Mean Corpuscular Volume 106.9 fL (80-94); Mean Platelet Vol. 9.8 fl (6.2-12.0); POSITIVE COUNT YES; POSITIVE MORPHOLOGY YES; Platelet Count 230 K/mm3 (150-450); RBC Distribution Width CV 15.4 % (11.6-14.6); RBC Distribution Width SD 60.9 fl (35.1-43.9); Red Blood Count 3.19 M/mm3 (4.6-6.2); White Blood Count 8.5 K/mm3 (4.4-11.0)
[2025-03-06 05:50] LABS: Differential Indicated MANUAL DIFF
[2025-03-06 05:54] VITALS: BP 121/69; PULSE 60
[2025-03-06 06:40] LABS: Anion Gap 12 (5-15); BUN 67 mg/dL (4-19); BUN/Creat Ratio 23.2 RATIO (10-20); Calcium,Total 8.2 mg/dL (7.6-11.0); Carbon Dioxide 25.9 mmol/L (21.0-32.0); Chloride 100 mmol/L (98-108); Estimated Creatinine Clearance 14.97 ml/min (50-250); Glucose 89 mg/dL (70-99); Potassium 4.7 mmol/L (3.3-5.1)
[2025-03-06 06:42] VITALS: PULSE 60; O2SAT 94
[2025-03-06 08:02] LABS: Neutrophil-Band 2 % (0-5); Neutrophil-Segmented 78 % (47-70); Total Cells Counted 100 (MANUAL DIFF)
[2025-03-06 08:03] LABS: Red Cell Morphology NORM C+C NORMAL (NORM C&C)
[2025-03-06] MEDS: Ensure Plus High Protein 120 ML LIQUID PO ×2 (08:36→16:57)
[2025-03-06] MEDS: Potassium Chloride Oral Tablet 20 MEQ PO ×2 (08:36→16:58)
[2025-03-06] MEDS: Vitamin B Comp W-C Capsule 1 CAP PO ×2 (08:37→20:20)
[2025-03-06] MEDS: Senna/Docusate Sodium 1 Tablet PO ×2 (08:39→20:22)
--- NOTE | 2025-03-06 09:10 | NURSING ---
Technical Adjuster Note; MDS for 03/05/2025 Complete
--- NOTE | 2025-03-06 09:10 | NURSING ---
Gi Physician Note; MDS for 03/05/2025 Complete
--- NOTE | 2025-03-06 10:05 | CASEMGMT ---
Social Work IDT met with patient and MIKE for care plan meeting. Discussed patient's progress in PT/OT/SN. Educated to Medicare benefit. Provided pt/family with written communication of insurance process and copay coverage during stay. Pt is SBA but only walking 30ft. The goal is to improve endurance and increase to a household distance of 80ft. Pt lives at home alone. SW broached the number of readmissions with pt. Revisited options for palliative care, AL or nonskilled HHC. After some discussion, pt agreeable to palliative care. SW to place referral once DC date is known. SW will continue to follow for DC planning. Roya Sarabia CATTLE CARE WORKER LENS CEMENTER
[2025-03-06] MEDS: APIXABAN 2.5 MG TABLET (WCH) PO ×2 (10:19→20:21)
[2025-03-06] MEDS: Tuberculin,Purif.prot.deriv. 50 TU/ML Vial 0.1 ML ID (11:14)
[2025-03-06 16:00] VITALS: BP 104/65; PULSE 60; RESP 16; TEMP 36.3; O2SAT 98
[2025-03-06 20:15] VITALS: BP 112/70; PULSE 59; RESP 16
[2025-03-06] MEDS: Cholecalciferol (VIT D3) 25 MCG TABLET (1,000 UNITS) PO (20:22)
--- NOTE | 2025-03-06 20:28 | NURSING ---
Pt requested HS meds at 1999. Administered medications at this time per pt request.
--- NOTE | 2025-03-06 20:28 | NURSING ---
Pt requested HS meds at 1999. Administered medications at this time per pt request.
[2025-03-07 06:19] VITALS: BP 127/67; PULSE 88
--- NOTE | 2025-03-07 06:50 | NURSING ---
Written communication left for Dr. Samuel regarding noted increase in BUN and creatinine and current lasix order.
--- NOTE | 2025-03-07 06:50 | NURSING ---
Written communication left for Dr. Samuel regarding noted increase in BUN and creatinine and current lasix order.
[2025-03-07] MEDS: Potassium Chloride Oral Tablet 20 MEQ PO ×2 (08:13→16:59)
[2025-03-07] MEDS: Vitamin B Comp W-C Capsule 1 CAP PO ×2 (08:14→20:31)
[2025-03-07] MEDS: Senna/Docusate Sodium 1 Tablet PO ×2 (08:17→20:33)
[2025-03-07] MEDS: APIXABAN 2.5 MG TABLET (WCH) PO ×2 (08:17→20:32)
[2025-03-07 10:00] VITALS: BMI 17.9
--- NOTE | 2025-03-07 12:10 | CHAPLAIN ---
Type of Pastoral Visit ___ Initial Visit _x__ Follow-up Visit ___ On-call Visit ___ General Patient Visit ___ Spiritual Assessment ___ Family Conference ___ Bereavement ___ Rapid Response ___ Code Blue ___ Other (describe below) Pastoral Care Referral From _x__ Patient ___ Family ___ Nurse ___ Physician ___ Gore Inserter ___ Group Exercise Class Instructor ___ Other (describe below) Sacrament/Intervention _x__ Active listening ___ Anointing ___ Orthodoxy ___ Bereavement ___ Communion ___ Jerica exploration ___ ___ Life review _x__ Prayer ___ Reconciliation ___ Sacrament of Sick _x__ Supportive presence ___ Wedding ___ Other (describe below) Pastoral Comments review of how patient believes he is doing and how much progress has occurred; pt admits that everything has gone slowly and that he will probably need to be staying longer; pt goal is to go home; pt has limited family support and only from others who are older too; pt holds on to jerica in God to bring him encouragement; pt says his goal is to gain strength and to be able to walk more and better; also casual talk about the events of the day and sports; prayer given
[2025-03-07 15:45] VITALS: BP 129/78; PULSE 61; RESP 18; TEMP 36.6; O2SAT 97
[2025-03-07] MEDS: Ensure Plus High Protein 120 ML LIQUID PO (16:59)
[2025-03-07 20:26] VITALS: BP 122/63; PULSE 60
[2025-03-07] MEDS: Cholecalciferol (VIT D3) 25 MCG TABLET (1,000 UNITS) PO (20:33)
--- NOTE | 2025-03-07 20:37 | NURSING ---
Administered pt's Hs medications at 2030 per pt request.
--- NOTE | 2025-03-07 20:37 | NURSING ---
Administered pt's Hs medications at 2030 per pt request.
[2025-03-07] MEDS: MENTHOL 226.8 GM JAR 1 APPLIC TOPICAL (22:41)
[2025-03-08 10:47] VITALS: BP 130/74; PULSE 60; RESP 17; TEMP 36.9; O2SAT 97
[2025-03-08] MEDS: Senna/Docusate Sodium 1 Tablet PO (10:58)
[2025-03-08] MEDS: Ensure Plus High Protein 120 ML LIQUID PO ×2 (14:03→18:08)
[2025-03-08] MEDS: Potassium Chloride Oral Tablet 20 MEQ PO (18:08)
[2025-03-08] MEDS: APIXABAN 2.5 MG TABLET (WCH) PO (20:25)
[2025-03-08] MEDS: Vitamin B Comp W-C Capsule 1 CAP PO (20:26)
[2025-03-08] MEDS: Senna/Docusate Sodium 1 Tablet 2 TABLET PO (20:27)
[2025-03-08] MEDS: Cholecalciferol (VIT D3) 25 MCG TABLET (1,000 UNITS) PO (20:31)
[2025-03-08] MEDS: MENTHOL 226.8 GM JAR 1 APPLIC TOPICAL (23:13)
[2025-03-09] MEDS: Vitamin B Comp W-C Capsule 1 CAP PO ×2 (10:15→20:22)
[2025-03-09] MEDS: APIXABAN 2.5 MG TABLET (WCH) PO ×2 (10:15→20:25)
[2025-03-09] MEDS: Polyethylene Glycol 3350 17 GM PACKET PO (10:16)
[2025-03-09] MEDS: Senna/Docusate Sodium 1 Tablet 2 TABLET PO (10:18)
[2025-03-09] MEDS: Potassium Chloride Oral Tablet 20 MEQ PO ×2 (10:18→17:21)
[2025-03-09] MEDS: Ensure Plus High Protein 120 ML LIQUID PO ×2 (13:37→17:21)
[2025-03-09 15:55] VITALS: BP 133/76; PULSE 60; RESP 18; TEMP 36.6; O2SAT 95
[2025-03-09 20:19] VITALS: BP 133/74; PULSE 60; RESP 17; TEMP 36.4; O2SAT 96
[2025-03-09] MEDS: Cholecalciferol (VIT D3) 25 MCG TABLET (1,000 UNITS) PO (20:27)
[2025-03-09] MEDS: MENTHOL 226.8 GM JAR 1 APPLIC TOPICAL (22:15)
[2025-03-10] MEDS: Ensure Plus High Protein 120 ML LIQUID PO ×3 (09:38→17:01)
[2025-03-10] MEDS: Potassium Chloride Oral Tablet 20 MEQ PO ×2 (09:38→17:01)
[2025-03-10] MEDS: Vitamin B Comp W-C Capsule 1 CAP PO ×2 (09:40→20:36)
[2025-03-10] MEDS: APIXABAN 2.5 MG TABLET (WCH) PO ×2 (09:42→20:40)
[2025-03-10 14:26] VITALS: BP 121/69; PULSE 56; RESP 18; TEMP 36.8; O2SAT 93
[2025-03-10 20:40] VITALS: PULSE 60; RESP 15; O2SAT 95
[2025-03-10] MEDS: Cholecalciferol (VIT D3) 25 MCG TABLET (1,000 UNITS) PO (20:43)
--- NOTE | 2025-03-10 21:35 | NURSING ---
Patient c/o chest feeling heavy, that he was not getting enough air. SpO2 86% on room air. O2 3L/min via NC applied at this time. Will continue to monitor.
[2025-03-10] MEDS: MENTHOL 226.8 GM JAR 1 APPLIC TOPICAL (22:43)
[2025-03-11 05:22] VITALS: RESP 16; O2SAT 95
[2025-03-11] MEDS: Ensure Plus High Protein 120 ML LIQUID PO ×2 (10:19→16:35)
[2025-03-11] MEDS: Potassium Chloride Oral Tablet 20 MEQ PO ×2 (10:19→16:35)
[2025-03-11] MEDS: Vitamin B Comp W-C Capsule 1 CAP PO ×2 (10:20→21:48)
[2025-03-11] MEDS: APIXABAN 2.5 MG TABLET (WCH) PO ×2 (10:25→21:49)
[2025-03-11] MEDS: Senna/Docusate Sodium 1 Tablet 2 TABLET PO ×2 (10:27→21:50)
[2025-03-11 16:00] VITALS: BP 128/74; PULSE 62; RESP 17; TEMP 36.4; O2SAT 95
[2025-03-11 21:47] VITALS: BP 131/65; PULSE 60
[2025-03-11] MEDS: Cholecalciferol (VIT D3) 25 MCG TABLET (1,000 UNITS) PO (21:50)
[2025-03-12 01:39] VITALS: O2SAT 94
[2025-03-12 08:02] VITALS: BP 119/77; PULSE 60; RESP 18; TEMP 36.8; O2SAT 97
[2025-03-12] MEDS: Vitamin B Comp W-C Capsule 1 CAP PO ×2 (08:06→20:10)
[2025-03-12] MEDS: Potassium Chloride Oral Tablet 20 MEQ PO ×2 (08:06→18:04)
[2025-03-12] MEDS: APIXABAN 2.5 MG TABLET (WCH) PO ×2 (08:06→20:11)
[2025-03-12] MEDS: Senna/Docusate Sodium 1 Tablet 2 TABLET PO ×2 (08:07→20:12)
[2025-03-12] MEDS: Polyethylene Glycol 3350 17 GM PACKET PO (08:07)
[2025-03-12] MEDS: MENTHOL 226.8 GM JAR 1 APPLIC TOPICAL (08:12)
[2025-03-12 10:00] VITALS: BMI 19.0
[2025-03-12] MEDS: Ensure Plus High Protein 120 ML LIQUID PO ×2 (12:26→18:04)
[2025-03-12 19:58] VITALS: PULSE 60; RESP 16; O2SAT 94
[2025-03-12 20:10] VITALS: BP 122/66; PULSE 80
[2025-03-12] MEDS: Cholecalciferol (VIT D3) 25 MCG TABLET (1,000 UNITS) PO (20:12)
--- NOTE | 2025-03-12 20:18 | NURSING ---
Pt requested bedtime medications at 1999. Administered medications at this time per pt request.
--- NOTE | 2025-03-12 20:18 | NURSING ---
Pt requested bedtime medications at 1999. Administered medications at this time per pt request.
[2025-03-13 05:15] VITALS: PULSE 60; RESP 18
[2025-03-13 05:44] LABS: Hematocrit 33.0 % (40-54); Hemoglobin 11.2 g/dL (13.0-16.5); Immature Granulocytes Count 0.110 X10^3/uL (0.0-0.0); Mean Corp Hgb Conc 33.9 g/dL (32-36); Mean Corpuscular Volume 107.1 fL (80-94); Mean Platelet Vol. 9.9 fl (6.2-12.0); NRBC Flagged by Analyzer 0 % (0-5); POSITIVE DIFFERENTIAL YES; Platelet Count 272 K/mm3 (150-450); RBC Distribution Width CV 15.9 % (11.6-14.6); RBC Distribution Width SD 62.4 fl (35.1-43.9); Red Blood Count 3.08 M/mm3 (4.6-6.2); White Blood Count 7.4 K/mm3 (4.4-11.0)
[2025-03-13 06:24] LABS: Anion Gap 9 (5-15); BUN 50 mg/dL (4-19); BUN/Creat Ratio 19.2 RATIO (10-20); Calcium,Total 8.0 mg/dL (7.6-11.0); Carbon Dioxide 24.7 mmol/L (21.0-32.0); Chloride 105 mmol/L (98-108); Estimated Creatinine Clearance 17.37 ml/min (50-250); Glucose 94 mg/dL (70-99); Potassium 5.4 mmol/L (3.3-5.1)
[2025-03-13 07:58] VITALS: O2SAT 95
[2025-03-13] MEDS: APIXABAN 2.5 MG TABLET (WCH) PO ×2 (11:09→21:24)
--- NOTE | 2025-03-13 11:13 | NURSING ---
pt refusing to take kayexalate at this time, took 1000 am meds at this time d/t upset stomach. pt did get zofran to help with N/V this AM. states he will take kayexalate later when feeling like he can drink it w/out getting sick again.
[2025-03-13 11:44] VITALS: BMI 18.6
--- NOTE | 2025-03-13 14:18 | NURSING ---
pt gonna try to drink kayexalate as ordered for elevated potassium, he continues to be nauseated, explained to pt that this is a symptom of elevated potassium and taking this medicated will reduce the level in his body. pt verbalized understanding but needed much education on the reason for nausea & need to reduce potassium level in blood.
[2025-03-13] MEDS: Vitamin B Comp W-C Capsule 1 CAP PO (21:20)
[2025-03-13] MEDS: Cholecalciferol (VIT D3) 25 MCG TABLET (1,000 UNITS) PO (21:27)
[2025-03-14 06:26] LABS: Anion Gap 11 (5-15); BUN 43 mg/dL (4-19); BUN/Creat Ratio 16.6 RATIO (10-20); Calcium,Total 7.8 mg/dL (7.6-11.0); Carbon Dioxide 24.9 mmol/L (21.0-32.0); Chloride 103 mmol/L (98-108); Estimated Creatinine Clearance 17.16 ml/min (50-250); Glucose 93 mg/dL (70-99); Potassium 4.5 mmol/L (3.3-5.1)
[2025-03-14 06:52] VITALS: O2SAT 93
[2025-03-14 10:00] VITALS: BMI 18.7
[2025-03-14 10:39] VITALS: BP 121/70; PULSE 60; RESP 18; TEMP 36.8
[2025-03-14] MEDS: APIXABAN 2.5 MG TABLET (WCH) PO ×2 (10:42→20:42)
[2025-03-14] MEDS: Vitamin B Comp W-C Capsule 1 CAP PO ×2 (10:42→20:39)
[2025-03-14] MEDS: Senna/Docusate Sodium 1 Tablet 2 TABLET PO (20:45)
[2025-03-14] MEDS: Cholecalciferol (VIT D3) 25 MCG TABLET (1,000 UNITS) PO (20:46)
[2025-03-14 20:50] VITALS: BP 124/65; PULSE 60; RESP 17; O2SAT 83
--- NOTE | 2025-03-14 20:51 | NURSING ---
Per pt request, 2200 medications given at this time.
--- NOTE | 2025-03-14 20:51 | NURSING ---
Per pt request, 2200 medications given at this time.
[2025-03-15 06:52] VITALS: O2SAT 94
[2025-03-15 06:54] LABS: Anion Gap 13 (5-15); BUN 41 mg/dL (4-19); BUN/Creat Ratio 16.6 RATIO (10-20); Calcium,Total 7.5 mg/dL (7.6-11.0); Carbon Dioxide 21.8 mmol/L (21.0-32.0); Chloride 103 mmol/L (98-108); Estimated Creatinine Clearance 18.03 ml/min (50-250); Glucose 90 mg/dL (70-99); Potassium 3.3 mmol/L (3.3-5.1)
[2025-03-15] MEDS: Ensure Plus High Protein 120 ML LIQUID PO (09:28)
[2025-03-15] MEDS: Senna/Docusate Sodium 1 Tablet 2 TABLET PO (09:33)
[2025-03-15] MEDS: Vitamin B Comp W-C Capsule 1 CAP PO ×2 (09:34→20:13)
[2025-03-15] MEDS: APIXABAN 2.5 MG TABLET (WCH) PO ×2 (09:35→20:15)
[2025-03-15 10:00] VITALS: BMI 18.7
[2025-03-15 10:33] VITALS: BP 122/60; PULSE 62; RESP 16; TEMP 36.8; O2SAT 91
--- NOTE | 2025-03-15 11:35 | NURSING ---
Patient hit his finger during therapy. Has small bleeding area to to the finger. Pressure applied for 5 min, small bandage placed
--- NOTE | 2025-03-15 11:35 | NURSING ---
Patient hit his finger during therapy. Has small bleeding area to to the finger. Pressure applied for 5 min, small bandage placed
[2025-03-15] MEDS: Cholecalciferol (VIT D3) 25 MCG TABLET (1,000 UNITS) PO (20:13)
--- NOTE | 2025-03-15 20:45 | NURSING ---
Patient stated he was very tired and wanted medication early. When checking SpO2, it was noted to go between 76-80%. O2 tubing noted to be unhooked from wall. Hooked back up, turned up to 4L/min. SpO2 up to 95%. O2 decreased to 3L/min. Will continue to monitor.
[2025-03-15] MEDS: MENTHOL 226.8 GM JAR 1 APPLIC TOPICAL (23:36)
[2025-03-16 07:35] LABS: Anion Gap 12 (5-15); BUN 42 mg/dL (4-19); BUN/Creat Ratio 17.7 RATIO (10-20); Calcium,Total 7.4 mg/dL (7.6-11.0); Carbon Dioxide 21.3 mmol/L (21.0-32.0); Chloride 104 mmol/L (98-108); Estimated Creatinine Clearance 18.57 ml/min (50-250); Glucose 89 mg/dL (70-99); Potassium 3.2 mmol/L (3.3-5.1)
[2025-03-16] MEDS: Ensure Plus High Protein 120 ML LIQUID PO (09:57)
[2025-03-16] MEDS: Vitamin B Comp W-C Capsule 1 CAP PO ×2 (09:58→21:05)
[2025-03-16 10:00] VITALS: BP 131/73; PULSE 60; RESP 24; TEMP 36.9; O2SAT 93
[2025-03-16] MEDS: APIXABAN 2.5 MG TABLET (WCH) PO ×2 (10:01→21:06)
[2025-03-16] MEDS: Senna/Docusate Sodium 1 Tablet 2 TABLET PO ×2 (10:04→21:06)
[2025-03-16] MEDS: Potassium Chloride Oral Tablet 20 MEQ 40 MEQ PO (10:29)
[2025-03-16 13:00] VITALS: PULSE 60; RESP 24
--- NOTE | 2025-03-16 16:47 | NURSING ---
THERAPY CAME TO THIS NURSE AND STATED PT OXYGEN DROPPED TO 78% WHILE WALKING AND PT SOB. PT NOT WEARING OXYGEN AT THAT TIME,THERAPY STATED SHE APPLIED 02 AND OXYGEN CAME BACK UP TO 93% AT REST. THIS NURSE TO PT ROOM,STATED TO PT THAT HE NEEDS TO USE OXYGEN WHEN UP IN ROOM WALKING. PT AGREED,TUBING EXTENDED TO REACH TO BATHROOM AND AT 3L. RN AWARE
[2025-03-16] MEDS: Cholecalciferol (VIT D3) 25 MCG TABLET (1,000 UNITS) PO (21:08)
[2025-03-16] MEDS: MENTHOL 226.8 GM JAR 1 APPLIC TOPICAL (23:20)
[2025-03-17 05:31] VITALS: PULSE 60; RESP 18; O2SAT 93
[2025-03-17 05:44] LABS: Anion Gap 11 (5-15); BUN 39 mg/dL (4-19); BUN/Creat Ratio 16.4 RATIO (10-20); Calcium,Total 7.5 mg/dL (7.6-11.0); Carbon Dioxide 21.9 mmol/L (21.0-32.0); Chloride 104 mmol/L (98-108); Estimated Creatinine Clearance 18.65 ml/min (50-250); Glucose 92 mg/dL (70-99); Potassium 3.8 mmol/L (3.3-5.1)
[2025-03-17] MEDS: Ensure Plus High Protein 120 ML LIQUID PO ×2 (09:36→13:14)
[2025-03-17] MEDS: Vitamin B Comp W-C Capsule 1 CAP PO ×2 (09:40→21:46)
[2025-03-17] MEDS: APIXABAN 2.5 MG TABLET (WCH) PO ×2 (09:42→21:45)
[2025-03-17] MEDS: Potassium Chloride Oral Tablet 20 MEQ PO (09:49)
[2025-03-17 09:57] VITALS: BP 136/73; PULSE 60; RESP 18; TEMP 36.4; O2SAT 95
[2025-03-17 10:00] VITALS: BMI 19.1
[2025-03-17] MEDS: Senna/Docusate Sodium 1 Tablet 2 TABLET PO (21:44)
[2025-03-17] MEDS: Cholecalciferol (VIT D3) 25 MCG TABLET (1,000 UNITS) PO (21:46)
[2025-03-17 21:50] VITALS: RESP 28; O2SAT 83
[2025-03-17 21:55] VITALS: BP 128/77; PULSE 102; RESP 29; TEMP 37.5; O2SAT 83
--- NOTE | 2025-03-17 22:00 | NURSING ---
Pt noted to be in resp distress. See Assessment in shift clinical findings. Pulse ox on 6l n/c 91%. Crackles in right middle and lower lung. Temp 99.5. Crackles new finding, Dr Jimmie joyce. Notified of findings. He requested pt be sent to ED. Pt educated on plan of care. Verbalized understanding. ED called with report. Placed on portable o2 at 6L n\c and pt transferred to ED at 2210.
--- NOTE | 2025-03-18 07:31 | PCM.DC.SUM ---
Providers Date of Admission: 02/26/25 Primary Care Physician: Dr. César Chinchilla MD Reason For Visit: PRESYNCOPE, N/V/ABD PAIN, EXTENSIVE CARDIAC HX Diagnosis Discharge Diagnosis (1) Debility: Status: Acute Code(s): R53.81 - Other malaise (2) Abdominal pain: Status: Inactive Code(s): R10.9 - Unspecified abdominal pain (3) Intussusception: Status: Acute Code(s): K56.1 - Intussusception (4) Enteritis: Status: Acute Code(s): K52.9 - Noninfective gastroenteritis and colitis, unspecified (5) Orthostatic hypotension: Status: Resolved Code(s): I95.1 - Orthostatic hypotension (6) Acute kidney injury: Status: Acute Code(s): N17.9 - Acute kidney failure, unspecified (7) Acute on chronic heart failure with preserved ejection fraction (HFpEF): Status: Acute Code(s): I50.33 - Acute on chronic diastolic (congestive) heart failure (8) Elevated troponin: Status: Acute Code(s): R79.89 - Other specified abnormal findings of blood chemistry (9) COPD (chronic obstructive pulmonary disease): Status: Chronic Code(s): J44.9 - Chronic obstructive pulmonary disease, unspecified (10) Iron deficiency anemia: Status: Acute Code(s): D50.9 - Iron deficiency anemia, unspecified Qualifiers: Iron deficiency anemia type: unspecified iron deficiency Qualified Code(s): D50.9 - Iron deficiency anemia, unspecified (11) HLD (hyperlipidemia): Status: Chronic Code(s): E78.5 - Hyperlipidemia, unspecified Qualifiers: Hyperlipidemia type: unspecified Qualified Code(s): E78.5 - Hyperlipidemia, unspecified (12) BPH (benign prostatic hyperplasia): Status: Acute Code(s): N40.0 - Benign prostatic hyperplasia without lower urinary tract symptoms (13) Coronary artery disease: Status: Acute Code(s): I25.10 - Atherosclerotic heart disease of [place] coronary artery without angina pectoris (14) Hypothyroidism: Status: Acute Code(s): E03.9 - Hypothyroidism, unspecified (15) GERD (gastroesophageal reflux disease): Status: Acute Code(s): K21.9 - Gastro-esophageal reflux disease without esophagitis (16) Insomnia: Status: Acute Code(s): G47.00 - Insomnia, unspecified (17) Hypokalemia: Status: Acute Code(s): E87.6 - Hypokalemia (18) Obstructive sleep apnea: Status: Acute Code(s): G47.33 - Obstructive sleep apnea (adult) (pediatric) (19) Atrial fibrillation: Status: Acute Code(s): I48.91 - Unspecified atrial fibrillation Plan 84 year old male with below past medical history hospitalized abdominal pain, intussusception ruled out, complicated by acute kidney injury, orthostatic hypotension, acute on chronic HFpEF, elevated troponin, admitted to TCU with debility, here for rehabilitation, strengthening, prior to discharge home alone. Debility - PT/OT. Pain - Tylenol 1000mg q6 prn pain (1-10), BlueGel topical tid prn. Bowel - senna/colace 1 tablet bid, Magnesium citrate 300mL daily prn. Adult immunization - Administer pneumonia vaccine, covid vaccine, flu vaccine as appropriate. DVT prophylaxis - Eliquis. Atrial fibrillation - Diltiazem 120mg qam, Amiodarone 100mg bid, Eliquis 2.5mg bid. Coronary artery disease - Isosorbide 30mg daily, Ranexa 500mg bid, Eliquis 2.5mg bid, NTG 0.4mg sl q5m prn. Iron deficiency anemia - Ferrous sulfate 325mg qhs. Vitamin C 500mg bid. Hyperlipidemia - Atorvastatin 40mg qhs. Vitamin D deficiency - D3 25mcg qhs. Abdominal pain - Bentyl 20mg tid prn. Chronic HFpEF - Jardiance 10mg daily, Furosemide 40mg bidlx. Nutrition - Ensure Plus 120mL tidcm. BPH - Finasteride 5mg daily, Tamsulosin 0.4mg bid. Hypothyroidism - Levothyroxine 50mcg daily. Allergic rhinitis - Loratadine 10mg q48. Hypomagnesemia - Magnesium chloride 64mg daily. Insomnia - Melatonin 3mg qhs prn. GERD - Pantoprazole 20mg daily. Hypokalemia - KCL 20meq bidcm. Leg cramps Vitamin B complex 1 capsule bid. The following psychotropic medication was present on admission: Trazodone 25mg qhs. Psychotropic medication therapy is indicated for a diagnosis of: Insomnia. Based on my clinical evaluation, continuation of the medication is necessary at this time. Gradual dose reduction plan (select one): ____ GDR will be attempted. Will monitor patient symptoms and behaviors in response to GDR. __x__ GRD contraindicated. Reason contraindicated: stable chronic skilled nursing use. Medications at Discharge Home Medications tamsulosin 0.4 mg capsule 0.4 mg PO BID PROSTATE 11/18/21 ascorbic acid (vitamin C) 500 mg tablet 500 mg PO BID SUPPLEMENT 07/20/22 finasteride 5 mg tablet 5 mg PO DAILY PROSTATE 08/05/22 cholecalciferol (vitamin D3) 25 mcg (1,000 unit) capsule (Vitamin D3) 1,000 unit PO QHS SUPPLEMENT 02/19/23 trazodone 50 mg tablet 25 mg PO QHS INSOMNIA 02/28/24 ferrous sulfate 325 mg (65 mg iron) tablet (Feosol) 325 mg PO QHS ANEMIA 03/20/24 levothyroxine 50 mcg tablet 50 mcg PO DAILY THYROID 03/20/24 pantoprazole 20 mg tablet,delayed release 20 mg PO DAILY Gerd 08/28/24 melatonin 3 mg tablet 3 mg PO QHS PRN PRN Insomnia #0 tabs 12/17/24 menthol 2 % topical gel (Blue Gel) 1 applic topical TID PRN PRN Arthritis Pain 1-10 #0 grams 12/17/24 nitroglycerin 0.4 mg sublingual tablet 0.4 mg sublingual Q5M PRN Cardiac/Chest Pain #0 tabs 12/17/24 loratadine 10 mg tablet (Claritin) 10 mg PO .q48 allergies 12/28/24 acetaminophen 500 mg tablet 1,000 mg (2 x 500 mg) PO Q6H PRN PRN Pain Score 1-10 #0 tabs 01/02/25 atorvastatin 40 mg tablet 40 mg PO QHS cholesterol #30 tabs 01/14/25 ranolazine 500 mg tablet,extended release,12 hr 500 mg PO BID heart health #60 tabs 01/14/25 B-complex with vitamin C 1 tab PO BID supplement 01/16/25 amiodarone 100 mg tablet 100 mg PO BID heart 01/16/25 apixaban 2.5 mg tablet (Eliquis) 2.5 mg PO BID blood thinner 01/16/25 diltiazem HCl 120 mg capsule,extended release 24 hr (Cardizem CD) 120 mg PO QAM heart 01/16/25 empagliflozin 10 mg tablet (Jardiance) 10 mg PO QAM kidney 01/16/25 furosemide 40 mg tablet 40 mg PO BIDLX diuretic #60 tabs 01/16/25 isosorbide mononitrate 30 mg tablet,extended release 24 hr 30 mg PO QAM angina 01/16/25 magnesium chloride 1 tab PO DAILY supplement 01/16/25 potassium chloride 20 mEq tablet,extended release (K-Tab) 20 meq PO BID supplement 01/16/25 dicyclomine 20 mg tablet 20 mg PO TID PRN abdominal pain #20 tabs 02/23/25 Hospital Course Operations None Procedures None Summary of Care Provided Minutes Spent on Discharge: 15 Hospital Course: 84 year old male with below past medical history hospitalized abdominal pain, intussusception ruled out, complicated by acute kidney injury, orthostatic hypotension, acute on chronic HFpEF, elevated troponin, admitted to TCU with debility, here for rehabilitation, strengthening, prior to discharge home alone. 03/17/2025 Acute respiratory failure with worsening hypoxia. Discharge to [facility] ED 03/18/2025 for evaluation, admission to hospital. Weight / BMI Weight Weight: 56.971 kg Body Mass Index (BMI) 19.1 ABG / Lab / Microbiology Data 03/13/25 05:08 03/17/25 04:35 D/C Instructions Discharge Activity: Return to Normal Activity, May Shower and Use Walker Weight Bearing Status: Weight bearing as tolerated Call your doctor if you observe: Fever of 101 or Higher, Inability to urinate, Inability to have a bowel movement, Shortness of breath, Dizziness, Fainting spells, Swelling in the ankles, Chest pain and Uncontrolled pain DC O2, CPAP, BIPAP Needs Home O2 Discharge instructions: No Additional Instructions: Discharge to [facility] 03/18/2025 for evaluation, admission to hospital. Meaningful Use Info Meaningful Use Meaningful Use Diagnoses (Choose all that apply): None applicable Discharge Plan Admission Admit Date/Time: 02/26/25 12:03 Primary Reason for Your Visit: Debility. Attending Provider: Marcus Samuel Chi Primary Care Provider: César Chinchilla Instructions Additional Instructions / Restrictions: Discharge to [facility] 03/18/2025 for evaluation, admission to hospital. Discharge Orders/Prescriptions Prescriptions: No Action tamsulosin 0.4 mg capsule 0.4 mg PO BID ascorbic acid (vitamin C) 500 mg tablet 500 mg PO BID finasteride 5 mg tablet 5 mg PO DAILY trazodone 50 mg tablet 25 mg PO QHS pantoprazole 20 mg tablet,delayed release (DR/EC) 20 mg PO DAILY cholecalciferol (vitamin D3) [Vitamin D3] 25 mcg (1,000 unit) Capsule 1,000 unit PO QHS melatonin 3 mg Tablet 3 mg PO QHS PRN PRN (Reason: Insomnia) Qty: 0 0RF nitroglycerin 0.4 mg Tablet, Sublingual 0.4 mg sublingual Q5M PRN (Reason: Cardiac/Chest Pain) Qty: 0 0RF menthol [Blue Gel] 2 % Gel 1 applic topical TID PRN PRN (Reason: Arthritis Pain 1-10) Qty: 0 0RF acetaminophen 500 mg Tablet 1,000 mg PO Q6H PRN PRN (Reason: Pain Score 1-10) Qty: 0 0RF dicyclomine 20 mg tablet 20 mg PO TID PRN (Reason: abdominal pain) Qty: 20 0RF ferrous sulfate [Feosol] 325 mg (65 mg iron) tablet 325 mg PO QHS levothyroxine 50 mcg Tablet 50 mcg PO DAILY loratadine [Claritin] 10 mg tablet 10 mg PO .q48 atorvastatin 40 mg tablet 40 mg PO QHS Qty: 30 11RF ranolazine 500 mg tablet extended release 12 hr 500 mg PO BID Qty: 60 11RF diltiazem HCl [Cardizem CD] 120 mg capsule,extended release 24hr 120 mg PO QAM isosorbide mononitrate 30 mg tablet extended release 24 hr 30 mg PO QAM amiodarone 100 mg tablet 100 mg PO BID Jardiance 10 mg tablet 10 mg PO QAM furosemide 40 mg tablet 40 mg PO BIDLX Qty: 60 11RF B-complex with vitamin C Tablet 1 tab PO BID Eliquis 2.5 mg tablet 2.5 mg PO BID potassium chloride [K-Tab] 20 mEq tablet extended release 20 meq PO BID magnesium chloride [Mag 64] 1 tab PO DAILY Referrals / Follow Up: César Chinchilla MD [Primary Care Provider] - Disposition Disposition (needs filled in before D/C Order can be placed): Acute [facility]
== END 2025-03-17 23:49 | disposition short-term general hospital (02) | DRG 291 ==
PROVIDERS: Admitting Provider Family Medicine Geriatric Medicine; PCP Family Medicine; Referring Provider Family Medicine Geriatric Medicine; Visit Provider Family Medicine Geriatric Medicine
DX: I13.0 Hypertensive heart and chronic kidney disease with heart failure and stage 1 through stage 4 chronic kidney disease, or unspecified chronic kidney disease (principal); I50.43 Acute on chronic combined systolic (congestive) and diastolic (congestive) heart failure; J96.01 Acute respiratory failure with hypoxia; E44.1 Mild protein-calorie malnutrition; N18.4 Chronic kidney disease, stage 4 (severe); I48.19 Other persistent atrial fibrillation; Z68.1 Body mass index [BMI] 19.9 or less, adult; I27.20 Pulmonary hypertension, unspecified; J43.9 Emphysema, unspecified; M06.9 Rheumatoid arthritis, unspecified; D63.1 Anemia in chronic kidney disease; E03.9 Hypothyroidism, unspecified; D50.9 Iron deficiency anemia, unspecified; G47.33 Obstructive sleep apnea (adult) (pediatric); I95.1 Orthostatic hypotension; E87.6 Hypokalemia; E55.9 Vitamin D deficiency, unspecified; J30.9 Allergic rhinitis, unspecified; I25.10 Atherosclerotic heart disease of native coronary artery without angina pectoris; K52.9 Noninfective gastroenteritis and colitis, unspecified; E78.00 Pure hypercholesterolemia, unspecified; K21.9 Gastro-esophageal reflux disease without esophagitis; G47.00 Insomnia, unspecified; Z79.899 Other long term (current) drug therapy; Z95.5 Presence of coronary angioplasty implant and graft; N40.0 Benign prostatic hyperplasia without lower urinary tract symptoms; Z79.890 Hormone replacement therapy; Z95.0 Presence of cardiac pacemaker; Z79.01 Long term (current) use of anticoagulants
CPT/HCPCS: 36415; 80048; 82962; 85025; 97110; 97116; 97162; 97166; 97530; 97535; 97802

== ENCOUNTER 2025-03-17 22:17 | Inpatient (IN) | payer MEDICARE, OTHER, SELFPAY ==
[2025-03-17 22:19] VITALS: BP 143/78; PULSE 60; RESP 30; TEMP 37.8; O2SAT 86; BMI 20.5
[2025-03-17 22:23] VITALS: BP 143/78; PULSE 60; RESP 31; TEMP 37.8; O2SAT 88
--- NOTE | 2025-03-17 22:29 | EKG12_ITS ---
Test Reason : SOB Blood Pressure : */* mmHG Vent. Rate : 60 BPM Atrial Rate : 61 BPM P-R Int : * ms QRS Dur : 152 ms QT Int : 478 ms P-R-T Axes : * -77 90 degrees QTcB Int : 478 ms Ventricular-paced rhythm Abnormal ECG Atrial tachycardia Atrial-sensed ventricular-paced rhythm abnormal Confirmed by Indio Robin ([id number]), magazine editor MADISON MONTOYA ([id number]) on 03/19/2025 1:13:18 PM Referred By: Casimiro Ennis Confirmed By: Indio Robin
--- NOTE | 2025-03-17 22:32 | ED.VIS.DYS ---
HPI History of Present Illness Chief Complaint: Shortness of Breath Informant: patient Narrative Narrative: 84-year-old male states has been having some shortness of breath for the past 2 or 3 days, gradually worsening, usually on oxygen only at night, he is currently residing on TCU here in [place], they have had him on nasal cannula last couple days but tonight his oxygen requirements have increased and he is little more short of breath so he was sent here to the ER for evaluation. He denies any abdominal pain although he had some nausea earlier and was given some Zofran so that is gone now. Denies headache. Denies chest discomfort or edema in his legs or orthopnea. He was hypoxic upstairs on 4 L nasal cannula while awake. He currently is on a high flow 8 L nasal cannula and at 90%. He has been coughing. [facility] Medical History Elevated troponin COPD (chronic obstructive pulmonary disease) Iron deficiency anemia Acute kidney injury Abnormal CT scan, gastrointestinal tract Angiodysplasia of stomach Acute respiratory failure Bright red blood per rectum History of atrial fibrillation Chronic kidney disease Acute lower GI bleeding Atrial fibrillation Bradycardia CKD (chronic kidney disease) stage 4, GFR 15-29 ml/min Acute on chronic heart failure with reduced ejection fraction and diastolic dysfunction Pulmonary hypertension Combined systolic and diastolic congestive heart failure Coronary artery disease 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 Complete heart 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 Intermittent complete heart block History of atrial fibrillation COPD (chronic obstructive pulmonary disease) with emphysema CHF (congestive heart failure) Hypoxia Chronic kidney disease Chronic anticoagulation Acute dyspnea Hypotension Abnormal abdominal ultrasound Persistent atrial fibrillation Hearing loss, left Hearing loss, right Anxiety Chronic pain Rheumatoid arthritis Irregular heart beat Hypertension Hypothyroidism Hiatal hernia Acute constipation Acute exacerbation of chronic low back pain Wears glasses Thyroid disease Ambulates with cane Arthritis History of renal disease Anemia High cholesterol Easy bruising Excessive bleeding History of leukemia Back pain Difficulty chewing History of diverticulitis Gastric reflux Sleep apnea History of pain when walking History of edema History of echocardiogram History of stress test Cardiology follow-up encounter History of heart attack Nausea and vomiting Chronic anemia Diarrhea Colitis Sleep apnea Acute kidney injury superimposed on chronic kidney disease On amiodarone therapy Elevated LFTs Thoracic aortic aneurysm (TAA) Chronic heart failure with preserved ejection fraction (HFpEF) Nonrheumatic mitral (valve) insufficiency Atypical atrial flutter (12/2020) Elevated liver enzymes Debility Dysphagia Osteoarthritis History of colon polyps Cancer Kidney stones Kidney disease Non-smoker CPAP (continuous positive airway pressure) dependence Atrial fibrillation Myocardial infarct Chronic renal insufficiency Acute gastrointestinal bleeding Chronic kidney disease Benign prostatic hyperplasia Stage 3b chronic kidney disease GI bleed (2012) Non-rheumatic tricuspid valve insufficiency Secondary pulmonary arterial hypertension Essential (primary) hypertension BPH (benign prostatic hyperplasia) History of hyperthyroidism Paroxysmal atrial fibrillation 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 heart disease of lime coronary artery without angina pectoris HLD (hyperlipidemia) Home Medications ?Medication ?Instructions ?Recorded ?Last Taken ?Type tamsulosin 0.4 mg capsule 0.4 mg PO BID PROSTATE 11/18/21 02/26/25 History ascorbic acid (vitamin C) 500 mg 500 mg PO BID SUPPLEMENT 07/20/22 02/26/25 History tablet finasteride 5 mg tablet 5 mg PO DAILY PROSTATE 08/05/22 02/26/25 History cholecalciferol (vitamin D3) 25 1,000 unit PO QHS SUPPLEMENT 02/19/23 02/22/25 History mcg (1,000 unit) capsule (Vitamin D3) trazodone 50 mg tablet 25 mg PO QHS INSOMNIA 02/28/24 02/25/25 History ferrous sulfate 325 mg (65 mg 325 mg PO QHS ANEMIA 03/20/24 02/22/25 History iron) tablet (Feosol) levothyroxine 50 mcg tablet 50 mcg PO DAILY THYROID 03/20/24 02/26/25 History pantoprazole 20 mg tablet,delayed 20 mg PO DAILY Gerd 08/28/24 02/26/25 History release melatonin 3 mg tablet 3 mg PO QHS PRN PRN Insomnia #0 12/17/24 Unknown Rx tabs menthol 2 % topical gel (Blue Gel) 1 applic topical TID PRN PRN 12/17/24 12/27/24 Rx Arthritis Pain 1-10 #0 grams nitroglycerin 0.4 mg sublingual 0.4 mg sublingual Q5M PRN 12/17/24 Unknown Rx tablet Cardiac/Chest Pain #0 tabs loratadine 10 mg tablet (Claritin) 10 mg PO .q48 allergies 12/28/24 02/22/25 History acetaminophen 500 mg tablet 1,000 mg (2 x 500 mg) PO Q6H PRN 01/02/25 Unknown Rx PRN Pain Score 1-10 #0 tabs atorvastatin 40 mg tablet 40 mg PO QHS cholesterol #30 tabs 01/14/25 02/25/25 Rx ranolazine 500 mg tablet,extended 500 mg PO BID heart health #60 tabs 01/14/25 02/26/25 Rx release,12 hr B-complex with vitamin C 1 tab PO BID supplement 01/16/25 02/22/25 History amiodarone 100 mg tablet 100 mg PO BID heart 01/16/25 02/26/25 History apixaban 2.5 mg tablet (Eliquis) 2.5 mg PO BID blood thinner 01/16/25 02/23/25 History diltiazem HCl 120 mg 120 mg PO QAM heart 01/16/25 02/26/25 History capsule,extended release 24 hr (Cardizem CD) empagliflozin 10 mg tablet 10 mg PO QAM kidney 01/16/25 02/26/25 History (Jardiance) furosemide 40 mg tablet 40 mg PO BIDLX diuretic #60 tabs 01/16/25 02/26/25 Rx isosorbide mononitrate 30 mg 30 mg PO QAM angina 01/16/25 02/26/25 History tablet,extended release 24 hr magnesium chloride 1 tab PO DAILY supplement 01/16/25 02/26/25 History potassium chloride 20 mEq 20 meq PO BID supplement 01/16/25 02/26/25 History tablet,extended release (K-Tab) dicyclomine 20 mg tablet 20 mg PO TID PRN abdominal pain 02/23/25 Unknown Rx #20 tabs Allergy/AdvReac Type Severity Reaction Status Date / Time diclofenac Allergy rash Verified 03/17/25 22:19 prednisone Allergy Rash Verified 03/17/25 22:19 Family History Father Cancer Prostate cancer Mother Hypertension Sister Hypertension Surgical History Status post placement of cardiac pacemaker History of colonoscopy (03/26/24) History of back surgery History of cardiac catheterization History of esophagogastroduodenoscopy (EGD) History of cardioversion (06/18/19) History of radiofrequency ablation procedure for cardiac arrhythmia (11/11/11) History of electrophysiologic study (08/08/00) History of left heart catheterization (07/17/12) History of hemorrhoidectomy History of Zenaida fundoplication History of coronary artery stent placement (08/04/00) History of hernia repair History of back surgery Social History household members: none housing: house Smoking Status: Never smoker alcohol intake: never substance use type: does not use caffeine: No ROS ROS ED Constitutional Constitutional ED: Reports malaise; Denies chills or fever(s) Eyes Eyes: Denies change in vision or diplopia ENT ENT ED: Denies rhinorrhea or sore throat Cardiovascular Cardiovascular: Denies chest pain, leg edema, orthopnea or palpitations Respiratory/Chest Respiratory/Chest: Reports cough and dyspnea; Denies orthopnea or sputum Gastrointestinal Gastrointestinal: Reports nausea; Denies abdominal pain, diarrhea or vomiting Genitourinary Genitourinary ED: Denies dysuria Musculoskeletal Musculoskeletal: Denies back pain or neck pain Integumentary Denies abscess or rash Neurologic Neurologic: Denies headache(s), paresthesias or weakness Psychiatric Psychiatric: Denies suicidal thoughts EXAM Physical Exam Const Vital Signs: 03/17/25 22:19 03/17/25 22:23 03/17/25 22:24 Temperature 100.1 F H 100.1 F H Temperature Source Oral Oral Pulse Rate 60 60 Respiratory Rate 30 H 31 H Respiratory Effort Labored Respiratory Depth Normal Respiratory Pattern Tachypnea Blood Pressure 143/78 H 143/78 H Blood Pressure Mean 99 99 Pulse Ox 86 88 Oxygen Delivery Method High Flow High Flow Oxygen Flow Rate (L/min) 8 8 03/17/25 22:35 03/17/25 22:35 03/17/25 22:46 Temperature Temperature Source Pulse Rate 62 Respiratory Rate 28 H Respiratory Effort Respiratory Depth Respiratory Pattern Tachypnea Blood Pressure Blood Pressure Mean Pulse Ox 91 Oxygen Delivery Method High Flow High Flow Oxygen Flow Rate (L/min) 8 03/17/25 23:30 Temperature 99.6 F H Temperature Source Temporal Pulse Rate 62 Respiratory Rate 24 H Respiratory Effort Respiratory Depth Respiratory Pattern Blood Pressure 140/74 H Blood Pressure Mean 96 Pulse Ox 93 Oxygen Delivery Method High Flow Oxygen Flow Rate (L/min) Positive well nourished and well developed General Appearance ED: well developed and NAD HEENT Reports moist mucous membranes normocephalic and atraumatic Eyes PERRL and EOMs intact bilaterally Neck full ROM, supple and no JVD Resp Resp Narrative: Mild tachypnea without respiratory distress. High-pitched rhonchi in the right base, diminished throughout and symmetrically and otherwise clear. Trachea midline. Cardio regular rate and regular rhythm Cardio Narrative: Crescendo 3/6 systolic murmur LLSB GI non-tender and non-distended Auscultation: normoactive bowel sounds Palpation: soft Back/Spine no CVA tenderness General Back: other FROM Extremity normal to inspection General Extremety ED: Negative for edema, pulses abnormal or tenderness General Extremity: Negative for edema or pulses abnormal Neuro oriented x3, CN's II-XII intact bilaterally and no sensory deficits noted Sensorium / Orientation: awake and alert Motor Exam: strength 5/5 throughout Psych mental status grossly normal Skin no rashes or lesions noted and no wounds MDM MDM MDM Narrative Medical decision making narrative: Patient has a fever of 100.1 here. Septic workup obtained and he was given an albuterol aerosol. His 1 view chest x-ray my interpretation looks like central pulmonary vascular congestion versus pneumonia given his fever am suspicious for the latter. His workup does not rule in or rule out either 1 of these. He has a mild leukocytosis, he has an elevated troponin and a very high BNP compared with his usual, with chronic renal insufficiency I reviewed his BMP from earlier today which I did not feel needed repeated emergently, but his lactic acid is 1.4 within normal limits and so he is not septic. Covered him with antibiotics given the fever I think this is pneumonia till proven otherwise, and given his oxygen requirement plan is for admission to acute care. COVID/influenza/RSV swab is negative, so per hospitalist request ordered respiratory viral panel swab to be sent. History & Record Review Additional record(s) reviewed:: Prior outpatient record (Prior echo showing severe pulmonary hypertension, good ejection fraction 60%, and 3+ tricuspid insufficiency) and Prior labs Lab Data Attestation: I reviewed the patient's lab results. Labs: Laboratory Results - last 24 hr 03/17/25 22:26 WBC 11.7 H RBC 3.14 L Hgb 11.5 L Hct 33.9 L MCV 108.0 H MCH 36.6 H MCHC 33.9 RDW Std Deviation 62.7 H RDW Coeff of Pablo 15.9 H Plt Count 308 MPV 9.7 Immature Gran % (Auto) 1.400 H Neut % (Auto) 84.0 H Lymph % (Auto) 3.9 L Petroleum % (Auto) 7.4 Eos % (Auto) 2.8 Baso % (Auto) 0.5 Absolute Neuts (auto) 9.8 H Absolute Lymphs (auto) 0.46 L Nucleated RBC % 0 Lactic Acid 1.4 Troponin T High Sens 86 H* [place] [address] H Radiography Diagnostic Testing: Clinical Impression(s) from Imaging Studies Chest X-Ray 03/17/25 22:55 IMPRESSION: Worsening central predominant airspace disease, correlate for edema or, less likely pneumonia Reading Location: [place] [id number] Rhythm Strip Rhythm Strip: Paced Rate: 60 Ectopy: None EKG Initial EKG: Attestation: I personally reviewed and interpreted this EKG as follows: Interpretation: Paced Prior EKG tracings: available for review Prior: Unchanged Management Discussion w/another healthcare provider: Hospitalist Discharge Plan Dx/Rx/DC Orders Clinical Impression: Acute hypoxemic respiratory failure, Chronic kidney disease, stage 3b, Elevated troponin, Pneumonia Disposition Disposition: Acute Care Hospital [facility]
[2025-03-17 22:35] VITALS: PULSE 62; RESP 28; O2SAT 91
[2025-03-17] MEDS: Albuterol 2.5 MG/3 ML VIAL.NEB. INHALATION (22:35)
[2025-03-17 22:40] LABS: Hematocrit 33.9 % (40-54); Hemoglobin 11.5 g/dL (13.0-16.5); Immature Granulocytes Count 0.160 X10^3/uL (0.0-0.0); Mean Corp Hgb Conc 33.9 g/dL (32-36); Mean Corpuscular Volume 108.0 fL (80-94); Mean Platelet Vol. 9.7 fl (6.2-12.0); NRBC Flagged by Analyzer 0 % (0-5); POSITIVE DIFFERENTIAL YES; Platelet Count 308 K/mm3 (150-450); RBC Distribution Width CV 15.9 % (11.6-14.6); RBC Distribution Width SD 62.7 fl (35.1-43.9); Red Blood Count 3.14 M/mm3 (4.6-6.2); White Blood Count 11.7 K/mm3 (4.4-11.0)
--- NOTE | 2025-03-17 22:55 | RAD_ITS ---
PROCEDURE: CHEST 1 VIEW (PORTABLE) 03/17/2025 REASON FOR EXAM: SOB, HYPOXIA TECHNIQUE: Frontal view of the chest. COMPARISON: 12/16/24 FINDINGS: Scoliosis. Multilevel kyphoplasty. Heart size is upper limits of normal, possible LVH. Unremarkable cardiac device. Under aerated lungs. Central predominant lung opacities, interval worsening. Blunted angles without large effusion or pneumothorax. RAD/Chest 1 View (Portable) IMPRESSION: Worsening central predominant airspace disease, correlate for edema or, less li remy pneumonia Reading Location: [facility]
[2025-03-17 23:10] LABS: Pro- Brain NATRIURETIC PEPTIDE 33028 pg/mL (<=1800); Troponin T High Sensitivity 86 ng/L (<=22)
[2025-03-17 23:30] VITALS: BP 140/74; PULSE 62; RESP 24; TEMP 37.6; O2SAT 93
--- NOTE | 2025-03-17 23:36 | PCM.HP.STD ---
[facility] Date of Service: 03/17/25 Chief Complaint: Increasing SOB. [facility] Narrative RICHIE HANSEN, is a 84 M with a past medical history of essential hypertension; on furosemide, hyperlipidemia; on atorvastatin, hypothyroidism; on levothyroxine, ALVARADO, paroxysmal atrial fibrillation; on amiodarone twice daily, diltiazem and apixaban twice daily, CAD; s/p PR and stent (1999) on ranolazine twice daily, ISMO plus SL NTG as needed, chronic diastolic CHF; preserved LVEF; on empagliflozin with echocardiogram done on December 10, 2024 that revealed preserved LVEF ~60% with 3+ tricuspid and 2+ mitral valve insufficiency with severe pulmonary hypertension, history of third-degree heart block; s/p PPM, CKD; stage IV with bilateral renal cysts, JON; on ferrous sulfate, history of COPD; on nocturnal oxygen 2L NC, depression; on trazodone nightly, BPH; on finasteride GERD; on pantoprazole, OA; with chronic low back pain and history of admission recent here from February 23, 2025 to February 26, 2025 for treatment of nausea and vomiting with abdominal pain with CT of the abdomen demonstrating short segment of bowel loop with thickened leal in the Left hemidiaphragm suggestive of intussusception or enteritis with no overt obstruction complicated by orthostatic hypotension and elevated troponin with subsequent small bowel follow-through that showed nondistended stomach and small bowel with contrast flowing to large bowel without difficulty and no evidence or intussusception with patient subsequently transition to TCU for rehabilitation who was sent down to the ER due to increasing shortness of breath. Mr. Hansen reports his symptoms began ~2-3 days ago with a gradual-onset of shortness of breath that has been progressively worsening. He was hypoxic in the TCU on 4L NC while awake and is currently requiring high flow 8L NC at 90%. He admits to nonproductive cough with malaise. He also complains of nausea that resolved after treatment with ondansetron. He denies chest pain, lower extremity edema, orthopnea, fever, chills, changes in vision, runny nose, sore throat, ear pain, chest pain, abdominal pain, vomiting, diarrhea, dysuria, hematuria, arthralgias, myalgias, headache or rash. In the ER he was noted to have a fever up to 100.1 ?F with Leukocytosis of 11.7 K and Left-shift of 1.4% with a CXR that revealed worsening central predominant airspace disease correlate for edema or less likely Pneumonia with a corresponding elevated NT pro-BNP II at 33,028 pg/mL present on admission consistent with AE of chronic diastolic CHF; preserved LVEF complicated by elevated initial troponin T of 86 ng/L suspected to be due to Acute Cardiac Strain compounded by clinical evidence of Acute Hypoxic Respiratory Failure; patient requiring high flow oxygen in ER. He was then admitted to the PCU for ongoing care for stay that is expected to extend beyond 2 midnights. [facility] Medical History Elevated troponin COPD (chronic obstructive pulmonary disease) Iron deficiency anemia Acute kidney injury Abnormal CT scan, gastrointestinal tract Angiodysplasia of stomach Acute respiratory failure Bright red blood per rectum History of atrial fibrillation Chronic kidney disease Acute lower GI bleeding Atrial fibrillation Bradycardia CKD (chronic kidney disease) stage 4, GFR 15-29 ml/min Acute on chronic heart failure with reduced ejection fraction and diastolic dysfunction Pulmonary hypertension Combined systolic and diastolic congestive heart failure Coronary artery disease 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 Complete heart 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 Intermittent complete heart block History of atrial fibrillation COPD (chronic obstructive pulmonary disease) with emphysema CHF (congestive heart failure) Hypoxia Chronic kidney disease Chronic anticoagulation Acute dyspnea Hypotension Abnormal abdominal ultrasound Persistent atrial fibrillation Hearing loss, left Hearing loss, right Anxiety Chronic pain Rheumatoid arthritis Irregular heart beat Hypertension Hypothyroidism Hiatal hernia Acute constipation Acute exacerbation of chronic low back pain Wears glasses Thyroid disease Ambulates with cane Arthritis History of renal disease Anemia High cholesterol Easy bruising Excessive bleeding History of leukemia Back pain Difficulty chewing History of diverticulitis Gastric reflux Sleep apnea History of pain when walking History of edema History of echocardiogram History of stress test Cardiology follow-up encounter History of heart attack Nausea and vomiting Chronic anemia Diarrhea Colitis Sleep apnea Acute kidney injury superimposed on chronic kidney disease On amiodarone therapy Elevated LFTs Thoracic aortic aneurysm (TAA) Chronic heart failure with preserved ejection fraction (HFpEF) Nonrheumatic mitral (valve) insufficiency Atypical atrial flutter (12/2020) Elevated liver enzymes Debility Dysphagia Osteoarthritis History of colon polyps Cancer Kidney stones Kidney disease Non-smoker CPAP (continuous positive airway pressure) dependence Atrial fibrillation Myocardial infarct Chronic renal insufficiency Acute gastrointestinal bleeding Chronic kidney disease Benign prostatic hyperplasia Stage 3b chronic kidney disease GI bleed (2012) Non-rheumatic tricuspid valve insufficiency Secondary pulmonary arterial hypertension Essential (primary) hypertension BPH (benign prostatic hyperplasia) History of hyperthyroidism Paroxysmal atrial fibrillation 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 heart disease of [place] coronary artery without angina pectoris HLD (hyperlipidemia) Home Medications ?Medication ?Instructions ?Recorded ?Last Taken ?Type tamsulosin 0.4 mg capsule 0.4 mg PO BID PROSTATE 11/18/21 02/26/25 History ascorbic acid (vitamin C) 500 mg 500 mg PO BID SUPPLEMENT 07/20/22 02/26/25 History tablet finasteride 5 mg tablet 5 mg PO DAILY PROSTATE 08/05/22 02/26/25 History cholecalciferol (vitamin D3) 25 1,000 unit PO QHS SUPPLEMENT 02/19/23 02/22/25 History mcg (1,000 unit) capsule (Vitamin D3) trazodone 50 mg tablet 25 mg PO QHS INSOMNIA 02/28/24 02/25/25 History ferrous sulfate 325 mg (65 mg 325 mg PO QHS ANEMIA 03/20/24 02/22/25 History iron) tablet (Feosol) levothyroxine 50 mcg tablet 50 mcg PO DAILY THYROID 03/20/24 02/26/25 History pantoprazole 20 mg tablet,delayed 20 mg PO DAILY Gerd 08/28/24 02/26/25 History release melatonin 3 mg tablet 3 mg PO QHS PRN PRN Insomnia #0 12/17/24 Unknown Rx tabs menthol 2 % topical gel (Blue Gel) 1 applic topical TID PRN PRN 12/17/24 12/27/24 Rx Arthritis Pain 1-10 #0 grams nitroglycerin 0.4 mg sublingual 0.4 mg sublingual Q5M PRN 12/17/24 Unknown Rx tablet Cardiac/Chest Pain #0 tabs loratadine 10 mg tablet (Claritin) 10 mg PO .q48 allergies 12/28/24 02/22/25 History acetaminophen 500 mg tablet 1,000 mg (2 x 500 mg) PO Q6H PRN 01/02/25 Unknown Rx PRN Pain Score 1-10 #0 tabs atorvastatin 40 mg tablet 40 mg PO QHS cholesterol #30 tabs 01/14/25 02/25/25 Rx ranolazine 500 mg tablet,extended 500 mg PO BID heart health #60 tabs 01/14/25 02/26/25 Rx release,12 hr B-complex with vitamin C 1 tab PO BID supplement 01/16/25 02/22/25 History amiodarone 100 mg tablet 100 mg PO BID heart 01/16/25 02/26/25 History apixaban 2.5 mg tablet (Eliquis) 2.5 mg PO BID blood thinner 01/16/25 02/23/25 History diltiazem HCl 120 mg 120 mg PO QAM heart 01/16/25 02/26/25 History capsule,extended release 24 hr (Cardizem CD) empagliflozin 10 mg tablet 10 mg PO QAM kidney 01/16/25 02/26/25 History (Jardiance) furosemide 40 mg tablet 40 mg PO BIDLX diuretic #60 tabs 01/16/25 02/26/25 Rx isosorbide mononitrate 30 mg 30 mg PO QAM angina 01/16/25 02/26/25 History tablet,extended release 24 hr magnesium chloride 1 tab PO DAILY supplement 01/16/25 02/26/25 History potassium chloride 20 mEq 20 meq PO BID supplement 01/16/25 02/26/25 History tablet,extended release (K-Tab) dicyclomine 20 mg tablet 20 mg PO TID PRN abdominal pain 02/23/25 Unknown Rx #20 tabs Allergy/AdvReac Type Severity Reaction Status Date / Time diclofenac Allergy rash Verified 03/17/25 22:19 prednisone Allergy Rash Verified 03/17/25 22:19 Family History Father Cancer Prostate cancer Mother Hypertension Sister Hypertension Surgical History Status post placement of cardiac pacemaker History of colonoscopy (03/26/24) History of back surgery History of cardiac catheterization History of esophagogastroduodenoscopy (EGD) History of cardioversion (06/18/19) History of radiofrequency ablation procedure for cardiac arrhythmia (11/11/11) History of electrophysiologic study (08/08/00) History of left heart catheterization (07/17/12) History of hemorrhoidectomy History of Zenaida fundoplication History of coronary artery stent placement (08/04/00) History of hernia repair History of back surgery Social History household members: none housing: house Smoking Status: Never smoker alcohol intake: never substance use type: does not use caffeine: No ROS ROS Narrative Review of Systems: Constitutional: Patient noted to have fever of 100.1 ?F with malaise as per HPI. He denies chills. Eyes: Patient denies changes in vision or discharge from eyes. ENT: Patient denies runny nose, sore throat or ear pain. Resp: Patient admits to shortness of breath at rest with nonproductive cough as per HPI. He denies wheezing. CV: Patient denies chest pain, palpitations, heart racing or lower extremity edema. GI: Patient admits to nausea but he denies vomiting, diarrhea or abdominal pain. : Patient denies dysuria or hematuria. MSK: Patient denies arthralgias or myalgias. Skin: Patient denies rash, abscess, wounds or jaundice. Psych: Patient denies symptoms of uncontrolled depression or anxiety. Neuro: Patient denies headache, paresthesias or focal neurologic deficits. Allergy: Patient denies lip swelling, tongue swelling or urticaria. Hematology: Patient admits to easy bleeding and easy bruisability on apixaban. Endocrinology: Patient denies polyuria, polydipsia, alopecia or heat/cold intolerance. 14 point ROS otherwise negative except for positives noted above HPI. Vital Signs Vital Signs Vital Signs: 03/17/25 22:19 03/17/25 22:23 03/17/25 22:24 Temperature 100.1 F H 100.1 F H Temperature Source Oral Oral Pulse Rate 60 60 Respiratory Rate 30 H 31 H Respiratory Effort Labored Respiratory Depth Normal Respiratory Pattern Tachypnea Blood Pressure 143/78 H 143/78 H Blood Pressure Mean 99 99 Pulse Ox 86 88 Oxygen Delivery Method High Flow High Flow Oxygen Flow Rate (L/min) 8 8 03/17/25 22:35 03/17/25 22:35 03/17/25 22:46 Temperature Temperature Source Pulse Rate 62 Respiratory Rate 28 H Respiratory Effort Respiratory Depth Respiratory Pattern Tachypnea Blood Pressure Blood Pressure Mean Pulse Ox 91 Oxygen Delivery Method High Flow High Flow Oxygen Flow Rate (L/min) 8 03/17/25 23:30 Temperature 99.6 F H Temperature Source Temporal Pulse Rate 62 Respiratory Rate 24 H Respiratory Effort Respiratory Depth Respiratory Pattern Blood Pressure 140/74 H Blood Pressure Mean 96 Pulse Ox 93 Oxygen Delivery Method High Flow Oxygen Flow Rate (L/min) Weight Weight: 134 lb 11.239 oz Body Mass Index (BMI) 20.5 Physical Exam Const alert, oriented x3 and average body habitus Constitutional Narrative: Elderly chronically-ill patient appears comfortable on high flow oxygen. General Appearance: cooperative HEENT normocephalic, head/scalp atraumatic, hearing grossly normal bilaterally and moist oral mucous membranes Eyes PERRL, EOMs intact bilaterally and conjunctivae normal Neck no lymphadenopathy, supple and no JVD Resp Resp Narrative: Patient tachypneic without respiratory distress with high-pitched rhonchi in the Right base and diminished throughout symmetrically. Auscultation: rhonchi right lower Cardio regular rate and regular rhythm Cardio Narrative: Grade 3/6 crescendo GINA at LLSB. GI normal to inspection, nondistended, normoactive bowel sounds, soft to palpation, non-tender and non-distended Extremity normal to inspection, full ROM and no clubbing, cyanosis or edema Skin Skin Narrative: Patient has evidence of rash, abscess, wounds or jaundice. Neuro oriented x3, CN's II-XII intact bilaterally, moves all extremities and no focal motor deficits Sensorium / Orientation: awake, alert, oriented to person, oriented to place and oriented to time Speech: speech normal Psych affect normal Results Medical Records Data Attestation: I reviewed the patient's medical records Lab / Micro Data Attestation: I reviewed the patient's lab results. 03/17/25 22:26 Labs: Laboratory Results - last 24 hr 03/17/25 22:26: WBC 11.7 H, RBC 3.14 L, Hgb 11.5 L, Hct 33.9 L, MCV 108.0 H, MCH 36.6 H, MCHC 33.9, RDW Std Deviation 62.7 H, RDW Coeff of Pablo 15.9 H, Plt Count 308, MPV 9.7, Immature Gran % (Auto) 1.400 H, Neut % (Auto) 84.0 H, Lymph % (Auto) 3.9 L, [place] % (Auto) 7.4, Eos % (Auto) 2.8, Baso % (Auto) 0.5, Absolute Neuts (auto) 9.8 H, Absolute Lymphs (auto) 0.46 L, Nucleated RBC % 0, Lactic Acid 1.4, Troponin T High Sens 86 H* D, [place] [address] H Rhythm Strip Rhythm Strip: Paced Rate: 60 Ectopy: None Imaging Radiology Impression Chest X-Ray 03/17/25 22:55 IMPRESSION: Worsening central predominant airspace disease, correlate for edema or, less likely pneumonia Reading Location: [place] [id number] Assessment & Plan Assessment/Plan (1) Pneumonia: QUALIFIERS: Pneumonia type: due to unspecified organism Laterality: unspecified laterality Lung location: unspecified part of lung Qualified Code(s): J18.9 - Pneumonia, unspecified organism (2) Acute on chronic heart failure with preserved ejection fraction (HFpEF): (3) Elevated troponin: (4) COPD exacerbation: (5) Obstructive sleep apnea: (6) Acute hypoxemic respiratory failure: (7) Paroxysmal atrial fibrillation: (8) Chronic anticoagulation: (9) On amiodarone therapy: PLAN: Plan 1. Fever up to 100.1 ?F with Leukocytosis of 11.7 K and Left-shift of 1.4% with a CXR that revealed worsening central predominant airspace disease correlate for edema or less likely Pneumonia - Admit to PCU. Continue empiric IV piperacillin-tazobactam begun in the ER and await culture and sensitivity data. Check urinary antigens for Streptococcus pneumonia and Legionella. Give acetaminophen as needed for [id number] (level 1-5/10) pain or fever. Give morphine IV as needed for severe (level 6-10/10) pain. Give ondansetron IV as needed for nausea and vomiting. Patient had normal lactate of 1.4 mmol/L and no other signs of sepsis present on admission. 2. Elevated NT pro-BNP II at 33,028 pg/mL present on admission consistent with AE of chronic diastolic CHF; preserved LVEF complicating #1 - Give furosemide 40 mg IV daily plus supplemental potassium and magnesium. Patient will likely require gentle diuresis given his multiple comorbidities and fragile state. Recent echocardiogram noted above. 3. Elevated initial troponin T of 86 ng/L suspected to be due to Acute Cardiac Strain attributable to #1 & #2 in the setting of previously known CAD; s/p PR and stent (1999) on ranolazine twice daily, ISMO plus SL NTG as needed - Serialize troponin. Continue home regimen with aim for conservative medical management. Doubt ACS. 4. AE COPD with Acute Hypoxic Respiratory Failure; patient requiring high flow oxygen in ER in the setting of previously known COPD plus ALVARADO on 2L NC nocturnal at baseline due to #1 -#3 - Wean additional supplemental oxygen as tolerated. Give methylprednisolone IV BID plus nebulizers as needed. 5. Recent admission here from February 23, 2025 to February 26, 2025 for treatment of nausea and vomiting with abdominal pain with CT of the abdomen demonstrating short segment of bowel loop with thickened leal in the Left hemidiaphragm suggestive of intussusception or enteritis with no overt obstruction complicated by orthostatic hypotension and elevated troponin with subsequent small bowel follow-through that showed nondistended stomach and small bowel with contrast flowing to large bowel without difficulty and no evidence or intussusception with patient subsequently transition to TCU for rehabilitation adding to the medical complexity of #1 - #4 - Noted. 6. Paroxysmal atrial fibrillation; on amiodarone twice daily, diltiazem and apixaban twice daily adding to the burden of disease outlined from #1 - #5 - Maintain home regimen. 7. History of third-degree heart block; s/p PPM - Noted. 8. CKD; stage IV with bilateral renal cysts - CMP still pending at this time. 9. Essential hypertension; on furosemide - Maintain furosemide IV as outlined in #2 plus give prn IV hydralazine for systolic blood pressure > 160 mmHg. 10. Hyperlipidemia; on atorvastatin - Resume statin and check Lipid Profile in light of #3. 11. Hypothyroidism; on levothyroxine - Continue levothyroxine and check TSH. 12. JON; on ferrous sulfate - Noted with hemoglobin of 11.5 g/dL and highly elevated MCV of 108 fL. Check B12 and folate levels to evaluate for deficiency. 13. Depression; on trazodone nightly - Current therapy to continue. 14. BPH; on finasteride - Resume finasteride as before. 15. GERD; on pantoprazole - Maintain PPI. 16. OA; with chronic low back pain - We follow pain regimen and scales outlined in #1. 17. DVT prophylaxis - Patient already on apixaban for #6 which will be continued. Total time: Approximately (but not less than) 75 minutes. Charges/Coding Visit Charges Inpatient E&M: 49265 Init Hosp L3
[2025-03-17] MEDS: Piperacil/Tazobactam 4.5 GM in 0.9% Normal Saline (100mL MB+) 100 ML IV (23:46)
[2025-03-18] VITALS (9 sets, daily range): BP systolic 108–141; BP diastolic 58–85; PULSE 58–92; RESP 18–21; TEMP 36.4–37.3; O2SAT 91–99; BMI 19.3
[2025-03-18 02:13] LABS: AST(SGOT) 23 U/L (<=37); Alanine Aminotransfer ALT/SGPT 22 U/L (<=46); Albumin, Serum 3.0 g/dL (3.4-4.8); Alkaline Phosphatase 57 U/L (40-129); Anion Gap 13 (5-15); BUN 39 mg/dL (4-19); BUN/Creat Ratio 16.1 RATIO (10-20); Calcium,Total 7.5 mg/dL (7.6-11.0); Carbon Dioxide 21.2 mmol/L (21.0-32.0); Chloride 103 mmol/L (98-108); Estimated Creatinine Clearance 18.88 ml/min (50-250); Globulin 3.4 g/dL (2.2-4.2); Glucose 105 mg/dL (70-99); Magnesium 2.2 mg/dL (1.5-2.2); Potassium 4.1 mmol/L (3.3-5.1)
[2025-03-18 02:14] LABS: Vitamin B12 934 pg/mL (180-914)
[2025-03-18 02:16] LABS: FOLATES,SERUM (FOLIC ACID) 35.50 ng/mL (4.60-34.80)
[2025-03-18 02:17] LABS: Troponin T High Sens 2 HR 86 ng/L (<=22)
[2025-03-18] MEDS: 0.9% Normal Saline (250mL Bag) 250 ML 15 ML IV (02:33)
[2025-03-18] MEDS: Linezolid 600 MG 600 MG/300 ML BAG 200 MG IV ×3 (02:34→22:15)
[2025-03-18 02:50] LABS: Hematocrit 31.5 % (40-54); Hemoglobin 10.5 g/dL (13.0-16.5); Immature Granulocytes Count 0.170 X10^3/uL (0.0-0.0); Mean Corp Hgb Conc 33.3 g/dL (32-36); Mean Corpuscular Volume 107.5 fL (80-94); Mean Platelet Vol. 9.5 fl (6.2-12.0); NRBC Flagged by Analyzer 0 % (0-5); POSITIVE DIFFERENTIAL YES; Platelet Count 266 K/mm3 (150-450); RBC Distribution Width CV 15.6 % (11.6-14.6); RBC Distribution Width SD 61.0 fl (35.1-43.9); Red Blood Count 2.93 M/mm3 (4.6-6.2); White Blood Count 11.8 K/mm3 (4.4-11.0)
[2025-03-18 03:10] LABS: Troponin T High Sens 4 HR 93 ng/L (<=22)
[2025-03-18 03:26] LABS: Anion Gap 13 (5-15); BUN 40 mg/dL (4-19); BUN/Creat Ratio 16.2 RATIO (10-20); Calcium,Total 7.7 mg/dL (7.6-11.0); Carbon Dioxide 21.7 mmol/L (21.0-32.0); Chloride 103 mmol/L (98-108); Estimated Creatinine Clearance 18.64 ml/min (50-250); Glucose 128 mg/dL (70-99); Potassium 4.1 mmol/L (3.3-5.1); Pro- Brain NATRIURETIC PEPTIDE 34391 pg/mL (<=1800)
--- NOTE | 2025-03-18 05:10 | RAD_ITS ---
PROCEDURE: CHEST 1 VIEW (PORTABLE) 03/18/2025 REASON FOR EXAM: PNA AND AE CHF. TECHNIQUE: Frontal view of the chest. COMPARISON: 03/19/2025 FINDINGS: Borderline cardiac enlargement. Unremarkable cardiac device. Well inflated lungs. [id number]-brecbsd-acet-left central predominant airspace opacities, stable. Blunted angles without large effusion or pneumothorax. RAD/Chest 1 View (Portable) IMPRESSION: Stable central predominant airspace disease. Correlate for asymmetric edema or pneumonia. Reading Location: [facility]
[2025-03-18 06:11] LABS: Cholesterol 90 mg/dL (<=200); Low Density Lipoprotein Calc. 38 mg/dL; Triglycerides 46 mg/dL; Very Low Density Lipoprotein 9 mg/dL (5-40); cholesterol:hdl ratio screen 2.10
[2025-03-18] MEDS: Potassium Chloride Oral Tablet 20 MEQ PO ×2 (09:01→16:21)
--- NOTE | 2025-03-18 09:17 | CASEMGMT ---
Social Work--entry level assistant managerdistrict operations manager SW received a message from [place] with [facility], asking for an update. SW left a message back([phone]) letting her know pt has not yet d/c. SW to fax d/c information once pt is d/c: [phone]. JACQUES Pereira
--- NOTE | 2025-03-18 09:38 | CASEMGMT ---
Social Work Pt came in from TCU. SW spoke w/pt in room, he would like to return to TCU when ready. SW spoke w/Tami, they will likely take pt back as long as there is a bed when pt is ready for d/c. SW informed pt, he states understanding. Plan will be to return to TCU, pending bed availability. JACQUES Pereira
[2025-03-18] MEDS: Vitamin B Comp W-C Capsule 1 CAP PO ×2 (09:39→21:01)
[2025-03-18] MEDS: Magnesium Chloride 64 MG Delay Rel.Tablet PO (09:40)
[2025-03-18] MEDS: APIXABAN 2.5 MG TABLET (WCH) PO ×2 (09:40→21:01)
[2025-03-18] MEDS: Piperacil/Tazobactam 3.375 GM in 0.9% Normal Saline (50mL MB+) 50 ML IV ×2 (10:51→20:59)
--- NOTE | 2025-03-18 12:22 | PN_ITS ---
Subjective Subjective Patient seen and examined. He had no active complaints. He denied feeling short of breath. He is on 8 L of oxygen but he says he feels his breathing has improved. He is diuresing well with the Lasix. He is also on antibiotics. Review of symptoms otherwise negative. I saw patient with his nurse by his bedside. Objective Data Objective Data Vital Signs: Vital Signs Temp Pulse Resp BP Pulse Ox O2 Del Method O2 Flow Rate 98.6 F 60 18 129/85 H 92 High Flow 8 03/18/25 08:00 03/18/25 08:00 03/18/25 08:00 03/18/25 08:00 03/18/25 08:00 03/18/25 08:51 03/18/25 08:51 Oxygen Flow Rate (L/min) 8 Oxygen Delivery Method High Flow Weight: 127 lb 3.307 oz Body Mass Index (BMI) 19.3 Intake & Output: Intake and Output for Last 24 Hours 03/16/25 03/17/25 03/18/25 23:59 23:59 23:59 Intake Total 400 / 400 Output Total 650 / 650 Balance -250 / -250 Lab / Micro Data 03/18/25 02:36 03/18/25 02:36 Labs: Laboratory Results - last 24 hr 03/17/25 22:26: WBC 11.7 H, RBC 3.14 L, Hgb 11.5 L, Hct 33.9 L, MCV 108.0 H, MCH 36.6 H, MCHC 33.9, RDW Std Deviation 62.7 H, RDW Coeff of Pablo 15.9 H, Plt Count 308, MPV 9.7, Immature Gran % (Auto) 1.400 H, Neut % (Auto) 84.0 H, Lymph % (Auto) 3.9 L, [place] % (Auto) 7.4, Eos % (Auto) 2.8, Baso % (Auto) 0.5, Absolute Neuts (auto) 9.8 H, Absolute Lymphs (auto) 0.46 L, Nucleated RBC % 0, Lactic Acid 1.4, Troponin T High Sens 86 H* D, [place] [address] H, Serum Folate 35.50 H 03/18/25 01:15: Sodium 137, Potassium 4.1, Chloride 103, Carbon Dioxide 21.2, Anion Gap 13, BUN 39 H, Creatinine 2.42 H, Estim Creat Clear Calc 18.88 L, Est GFR (MDRD) Non-Af 26 L, BUN/Creatinine Ratio 16.1, Glucose 105 H, Calcium 7.5 L, Magnesium 2.2, Total Bilirubin 0.88, AST 23, ALT 22, Alkaline Phosphatase 57, T roponin T Hi Sens 2 Hr 86 H*, Total Protein 6.4, Albumin 3.0 L, Globulin 3.4, Albumin/Globulin Ratio 0.9, Vitamin B12 934 H, TSH 3.190 03/18/25 02:36: WBC 11.8 H, RBC 2.93 L, Hgb 10.5 L, Hct 31.5 L, MCV 107.5 H, MCH 35.8 H, MCHC 33.3, RDW Std Deviation 61.0 H, RDW Coeff of Pablo 15.6 H, Plt Count 266, MPV 9.5, Immature Gran % (Auto) 1.400 H, Neut % (Auto) 82.9 H, Lymph % (Auto) 4.4 L, [place] % (Auto) 8.5, Eos % (Auto) 2.3, Baso % (Auto) 0.5, Absolute Neuts (auto) 9.8 H, Absolute Lymphs (auto) 0.52 L, Nucleated RBC % 0, Sodium 137, Potassium 4.1, Chloride 103, Carbon Dioxide 21.7, Anion Gap 13, BUN 40 H, C reatinine 2.45 H, Estim Creat Clear Calc 18.64 L, Est GFR (MDRD) Non-Af 25 L, BUN/Creatinine Ratio 16.2, Glucose 128 H, Calcium 7.7, Phosphorus 2.6 L, T roponin T Hi Sens 4Hr 93 H*, [place] [address] H, Triglycerides 46, Cholesterol 90, LDL Cholesterol, Calc 38, VLDL Cholesterol 9, HDL Cholesterol 43, Cholesterol/HDL Ratio 2.10 Micro: Microbiology 03/18/25 03:02 Urine, Clean Catch Legionella Antigen - Final 03/18/25 03:02 Urine, Clean Catch Streptococcus pneumoniae Antigen (M - Final 03/17/25 22:54 Mucosa - Nose SARS-CoV-2, Influenza & RSV (PCR) - Final Radiography Diagnostic Testing: Radiology Impression Chest X-Ray 03/17/25 22:55 IMPRESSION: Worsening central predominant airspace disease, correlate for edema or, less likely pneumonia Reading Location: [place] [address] Chest X-Ray 03/18/25 05:10 IMPRESSION: Stable central predominant airspace disease. Correlate for asymmetric edema or pneumonia. Reading Location: [place] [address] Rhythm Strip Rhythm Strip: Paced Rate: 60 Ectopy: None Physical Exam Const alert and oriented x3 Constitutional Narrative: frail and weak General Appearance: cooperative HEENT normocephalic, head/scalp atraumatic, moist oral mucous membranes and oropharynx normal Eyes EOMs intact bilaterally Neck no lymphadenopathy and supple Lymph Lymphatic: no lymphedema noted Resp Resp Narrative: mildly diminished breath sounds bibasally, no wheezes or crackles. On 8L of oxygen by nasal canula Cardio regular rate, regular rhythm, S1 normal heart sound, S2 normal heart sound and no murmurs GI normal to inspection, nondistended, normoactive bowel sounds, soft to palpation and non-tender Extremity normal capillary refill, no clubbing, cyanosis or edema and no calf tenderness General Extremity: no tenderness to palpation of joints or extremities Skin General Skin Exam: no breakdown Neuro CN's II-XII intact bilaterally, no focal motor deficits, no sensory deficits noted and deep tendon reflexes 2+ bilaterally Motor Exam: general weakness Psych thought process normal and cooperative Appearance: appropriate Assessment & Plan Assessment/Plan (1) Acute hypoxemic respiratory failure: (2) Acute on chronic heart failure with preserved ejection fraction (HFpEF): (3) Pneumonia: QUALIFIERS: Pneumonia type: due to unspecified organism L aterality: unspecified laterality Lung location: unspecified part of lung Q ualified Code(s): J18.9 - Pneumonia, unspecified organism PLAN: Plan #Acute on chronic hypoxic respiratory failure due to community acauired pneumonia and probable acute on chronic HFpEF and acute exacerbation of COPD * Currently on 8 L. Usually was on 2 L of oxygen. * On IV Zosyn and linezolid. Breathing treatments with bronchodilators. Urine for strep and Legionella negative. * Also being diuresed with IV Lasix. Titrate oxygen to maintain saturation above 90%. * Also on IV Solu-Medrol * #Elevated troponin: * Initial troponin was around 86 and essentially stayed flat. EKG showed no acute ST changes. * Likely due to troponin leak from the acute on chronic respiratory failure. * Does have a history of CAD status post stents. * On Imdur as well as sublingual nitroglycerin and cholesterol medication. #CAD s/p stents: On Imdur and ranolazine as well as high intensity statin #History of paroxysmal A-fib: On amiodarone and Cardizem as well as Eliquis. 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 Creatinine is 2.45 which is around his baseline. #Benign essential hypertension: On Lasix #Hyperlipidemia: On statin #Hypothyroidism: On Synthroid #Depression: On trazodone #BPH: On finasteride and Flomax #GERD: On PPI #Osteoarthritis: Continue pain meds Secondary prophylaxis: Eliquis Charges/Coding Visit Charges Inpatient E&M: 38981 Subs Hosp L2
[2025-03-18] MEDS: Ensure Plus High Protein 120 ML LIQUID PO (16:22)
[2025-03-18] MEDS: Albuterol 2.5 MG/3 ML VIAL.NEB. INHALATION (17:35)
[2025-03-18] MEDS: Cholecalciferol (VIT D3) 25 MCG TABLET (1,000 UNITS) PO (21:00)
[2025-03-18] MEDS: 0.9% Saline Lock 10 ML Syringe IV ×2 (21:08→21:38)
[2025-03-19] VITALS (8 sets, daily range): BP systolic 107–110; BP diastolic 60–70; PULSE 58–60; RESP 16–18; TEMP 36.3–36.6; O2SAT 94–100; BMI 19.2; BMI 19.3
[2025-03-19 06:56] LABS: Hematocrit 27.8 % (40-54); Hemoglobin 9.6 g/dL (13.0-16.5); Immature Granulocytes Count 0.170 X10^3/uL (0.0-0.0); Mean Corp Hgb Conc 34.5 g/dL (32-36); Mean Corpuscular Volume 104.9 fL (80-94); Mean Platelet Vol. 9.9 fl (6.2-12.0); NRBC Flagged by Analyzer 0 % (0-5); POSITIVE DIFFERENTIAL YES; Platelet Count 252 K/mm3 (150-450); RBC Distribution Width CV 15.2 % (11.6-14.6); RBC Distribution Width SD 56.8 fl (35.1-43.9); Red Blood Count 2.65 M/mm3 (4.6-6.2); White Blood Count 14.0 K/mm3 (4.4-11.0)
[2025-03-19 08:03] LABS: Anion Gap 12 (5-15); BUN 44 mg/dL (4-19); BUN/Creat Ratio 17.4 RATIO (10-20); Calcium,Total 7.2 mg/dL (7.6-11.0); Carbon Dioxide 23.3 mmol/L (21.0-32.0); Chloride 99 mmol/L (98-108); Estimated Creatinine Clearance 18.18 ml/min (50-250); Glucose 129 mg/dL (70-99); Potassium 3.8 mmol/L (3.3-5.1)
[2025-03-19] MEDS: Potassium Chloride Oral Tablet 20 MEQ PO ×2 (10:44→18:13)
[2025-03-19] MEDS: APIXABAN 2.5 MG TABLET (WCH) PO ×2 (10:45→20:39)
[2025-03-19] MEDS: Vitamin B Comp W-C Capsule 1 CAP PO ×2 (10:45→20:39)
[2025-03-19] MEDS: Magnesium Chloride 64 MG Delay Rel.Tablet PO (10:45)
[2025-03-19] MEDS: 0.9% Saline Lock 10 ML Syringe IV ×3 (10:46→20:48)
[2025-03-19] MEDS: Linezolid 600 MG 600 MG/300 ML BAG 200 MG IV ×2 (10:54→21:06)
--- NOTE | 2025-03-19 11:22 | CASEMGMT ---
RADHA CM updated by hospitalist that discharge is anticipated for tomorrow. RADHA PORTER updated TCU of planned discharge for tomorrow. CM will continue to follow this patient and plan for a safe discharge.
--- NOTE | 2025-03-19 12:15 | PN_ITS ---
Subjective Subjective Patient seen and examined. He is feeling better today and is down to 4L of oxygen. He has a dry cough which is not new. He has no other complaints and review of systems is otherwise negative. Objective Data Objective Data Vital Signs: Vital Signs Temp Pulse Resp BP Pulse Ox O2 Del Method O2 Flow Rate 97.7 F L 60 18 110/70 99 Nasal Cannula 3 03/19/25 10:35 03/19/25 10:35 03/19/25 10:35 03/19/25 10:35 03/19/25 11:04 03/19/25 11:04 03/19/25 11:04 Oxygen Flow Rate (L/min) 3 Oxygen Delivery Method Nasal Cannula Weight: 126 lb 8.725 oz Body Mass Index (BMI) 19.2 Intake & Output: Intake and Output for Last 24 Hours 03/17/25 03/18/25 03/19/25 23:59 23:59 23:59 Intake Total 1300 / 1300 50 / 50 Output Total 1400 / 1700 800 / 800 Balance -100 / -400 -750 / -750 Lab / Micro Data 03/19/25 05:49 03/19/25 05:49 Labs: Laboratory Results - last 24 hr 03/19/25 05:49: WBC 14.0 H, RBC 2.65 L, Hgb 9.6 L, Hct 27.8 L, MCV 104.9 H, MCH 36.2 H, MCHC 34.5, RDW Std Deviation 56.8 H, RDW Coeff of Pablo 15.2 H, Plt Count 252, MPV 9.9, Immature Gran % (Auto) 1.200 H, Neut % (Auto) 93.4 H, Lymph % (Auto) 2.1 L, [place] % (Auto) 3.2, Eos % (Auto) 0.0, Baso % (Auto) 0.1, Absolute Neuts (auto) 13.0 H, Absolute Lymphs (auto) 0.30 L, Nucleated RBC % 0, Sodium 135, Potassium 3.8, Chloride 99, Carbon Dioxide 23.3, Anion Gap 12, BUN 44 H, C reatinine 2.50 H, Estim Creat Clear Calc 18.18 L, Est GFR (MDRD) Non-Af 25 L, BUN/Creatinine Ratio 17.4, Glucose 129 H, Calcium 7.2 L Micro: Microbiology 03/18/25 21:00 Mucosa - Nose Respiratory Panel (PCR) - Final 03/18/25 03:02 Urine, Clean Catch Legionella Antigen - Final 03/18/25 03:02 Urine, Clean Catch Streptococcus pneumoniae Antigen (M - Final 03/17/25 22:54 Mucosa - Nose SARS-CoV-2, Influenza & RSV (PCR) - Final Rhythm Strip Rhythm Strip: Paced Rate: 60 Ectopy: None Physical Exam Const alert, oriented x3 and average body habitus Constitutional Narrative: frail and weak General Appearance: cooperative HEENT normocephalic, head/scalp atraumatic, hearing grossly normal bilaterally, moist oral mucous membranes and oropharynx normal Eyes PERRL, EOMs intact bilaterally and conjunctivae normal Neck no lymphadenopathy, supple and no JVD Lymph Lymphatic: no lymphedema noted Resp Resp Narrative: mildly diminished breath sounds bibasally, no wheezes or crackles. down to 4L of oxygen. Auscultation: rhonchi right lower Cardio regular rate, regular rhythm, S1 normal heart sound and S2 normal heart sound GI normal to inspection, nondistended, normoactive bowel sounds, soft to palpation, non-tender and non-distended Extremity normal to inspection, full ROM, normal capillary refill, no clubbing, cyanosis or edema and no calf tenderness General Extremity: no tenderness to palpation of joints or extremities Skin General Skin Exam: no breakdown Neuro oriented x3, CN's II-XII intact bilaterally, moves all extremities, no focal motor deficits, no sensory deficits noted and deep tendon reflexes 2+ bilaterally Sensorium / Orientation: awake, alert, oriented to person, oriented to place and oriented to time Speech: speech normal Motor Exam: general weakness Psych thought process normal, cooperative and affect normal Appearance: appropriate Assessment & Plan Assessment/Plan (1) Acute hypoxemic respiratory failure: (2) Acute on chronic heart failure with preserved ejection fraction (HFpEF): (3) Pneumonia: QUALIFIERS: Pneumonia type: due to unspecified organism L aterality: unspecified laterality Lung location: unspecified part of lung Q ualified Code(s): J18.9 - Pneumonia, unspecified organism PLAN: Plan #Acute on chronic hypoxic respiratory failure due to community acauired pneumonia and probable acute on chronic HFpEF and acute exacerbation of COPD * improving. Now down to 2L of oxygen. * On IV Zosyn and linezolid. Breathing treatments with bronchodilators. Urine for strep and Legionella negative. * Also being diuresed with IV Lasix. Titrate oxygen to maintain saturation above 90%. * Also on IV Solu-Medrol * wbc is up to 14, likely due to steroids. * #Elevated troponin: * Initial troponin was around 86 and essentially stayed flat. EKG showed no acute ST changes. * Likely due to troponin leak from the acute on chronic respiratory failure. * Does have a history of CAD status post stents. * On Imdur as well as sublingual nitroglycerin and cholesterol medication. #CAD s/p stents: On Imdur and ranolazine as well as high intensity statin #History of paroxysmal A-fib: On amiodarone and Cardizem as well as Eliquis. 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 Creatinine is 2.50 which is around his baseline. #Benign essential hypertension: On Lasix #Hyperlipidemia: On statin #Hypothyroidism: On Synthroid #Depression: On trazodone #BPH: On finasteride and Flomax #GERD: On PPI #Osteoarthritis: Continue pain meds DVT prophylaxis: Eliquis Disposition: anticipate dc over the next 24-48 hours. Charges/Coding Visit Charges Inpatient E&M: 08360 Subs Hosp L2
[2025-03-19] MEDS: 0.9% Normal Saline (250mL Bag) 250 ML 15 ML IV (12:30)
[2025-03-19] MEDS: Ensure Plus High Protein 120 ML LIQUID PO ×2 (12:33→18:13)
[2025-03-19] MEDS: Piperacil/Tazobactam 3.375 GM in 0.9% Normal Saline (50mL MB+) 50 ML IV ×2 (12:35→23:34)
[2025-03-19] MEDS: Cholecalciferol (VIT D3) 25 MCG TABLET (1,000 UNITS) PO (20:38)
[2025-03-20 02:47] VITALS: BP 110/65; PULSE 60; RESP 18; TEMP 36.8; O2SAT 95
[2025-03-20 05:28] VITALS: BMI 20.2
[2025-03-20 06:58] LABS: Hematocrit 26.6 % (40-54); Hemoglobin 9.3 g/dL (13.0-16.5); Immature Granulocytes Count 0.340 X10^3/uL (0.0-0.0); Mean Corp Hgb Conc 35.0 g/dL (32-36); Mean Corpuscular Volume 104.3 fL (80-94); Mean Platelet Vol. 10.1 fl (6.2-12.0); NRBC Flagged by Analyzer 0 % (0-5); POSITIVE DIFFERENTIAL YES; Platelet Count 234 K/mm3 (150-450); RBC Distribution Width CV 15.3 % (11.6-14.6); RBC Distribution Width SD 57.6 fl (35.1-43.9); Red Blood Count 2.55 M/mm3 (4.6-6.2); White Blood Count 16.3 K/mm3 (4.4-11.0)
[2025-03-20 07:32] LABS: Anion Gap 15 (5-15); BUN 51 mg/dL (4-19); BUN/Creat Ratio 18.9 RATIO (10-20); Calcium,Total 7.0 mg/dL (7.6-11.0); Carbon Dioxide 20.9 mmol/L (21.0-32.0); Chloride 97 mmol/L (98-108); Estimated Creatinine Clearance 17.58 ml/min (50-250); Glucose 125 mg/dL (70-99); Potassium 4.2 mmol/L (3.3-5.1)
[2025-03-20 09:04] VITALS: BP 122/72; PULSE 60; RESP 16; TEMP 36.3; O2SAT 96
[2025-03-20] MEDS: Magnesium Chloride 64 MG Delay Rel.Tablet PO (10:05)
[2025-03-20] MEDS: Potassium Chloride Oral Tablet 20 MEQ PO (10:06)
[2025-03-20] MEDS: APIXABAN 2.5 MG TABLET (WCH) PO (10:06)
[2025-03-20] MEDS: Vitamin B Comp W-C Capsule 1 CAP PO (10:07)
[2025-03-20] MEDS: Linezolid 600 MG 600 MG/300 ML BAG 200 MG IV (10:07)
[2025-03-20] MEDS: Piperacil/Tazobactam 3.375 GM in 0.9% Normal Saline (50mL MB+) 50 ML IV (10:08)
--- NOTE | 2025-03-20 11:38 | TREXTCAR_ITS ---
Diet Diet Order/Speech Therapy: INPATIENT Hospital Diet / Speech Therapy Order(s) 03/20/25 09:09 Diet: Cardiac - Heart Healthy Routine Orders/Code Status Enema Type: Fleetz Enema Frequency: Daily PRN DC O2, CPAP, BIPAP needs Home O2 Discharge instructions: Yes Type of respiratory needs?: Oxygen Oxygen frequency: Continuous Continuous oxygen liters per minute: 2 Wound(s) left middle finger: Wound Type: Puncture Therapies Weight Bearing: Weight bearing as tolerated Physical Therapy: Eval and Treat Occupational Therapy: Eval and Treat Problem/Diagnosis (1) Acute hypoxemic respiratory failure: Status: Acute Code(s): J96.01 - Acute respiratory failure with hypoxia (2) Acute on chronic heart failure with preserved ejection fraction (HFpEF): Status: Acute Code(s): I50.33 - Acute on chronic diastolic (congestive) heart failure (3) Pneumonia: Status: Acute Code(s): J18.9 - Pneumonia, unspecified organism Plan #Acute on chronic hypoxic respiratory failure due to community acauired pneumonia and probable acute on chronic HFpEF and acute exacerbation of COPD * improving. Now down to 2L of oxygen. * On IV Zosyn and linezolid. Breathing treatments with bronchodilators. Urine for strep and Legionella negative. * Also being diuresed with IV Lasix. Titrate oxygen to maintain saturation above 90%. * Also on IV Solu-Medrol * wbc is up to 14, likely due to steroids. * #Elevated troponin: * Initial troponin was around 86 and essentially stayed flat. EKG showed no acute ST changes. * Likely due to troponin leak from the acute on chronic respiratory failure. * Does have a history of CAD status post stents. * On Imdur as well as sublingual nitroglycerin and cholesterol medication. #CAD s/p stents: On Imdur and ranolazine as well as high intensity statin #History of paroxysmal A-fib: On amiodarone and Cardizem as well as Eliquis. 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 Creatinine is 2.50 which is around his baseline. #Benign essential hypertension: On Lasix #Hyperlipidemia: On statin #Hypothyroidism: On Synthroid #Depression: On trazodone #BPH: On finasteride and Flomax #GERD: On PPI #Osteoarthritis: Continue pain meds DVT prophylaxis: Eliquis Disposition: anticipate dc over the next 24-48 hours. Allergies/Procedures Done in Hospital Allergies diclofenac Allergy (Verified 03/17/25 22:19) rash prednisone Allergy (Verified 03/17/25 22:19) Rash Procedures: None Type of Care/Length of Stay Estimated LOS: Convalescent Care Less Than 30 days Type of Care Needed: Skilled Rehab Potential: Fair Prognosis: Fair Additional Orders/Day of Discharge Day of Discharge: 03/20/25 Dietary and Speech Recommendations Dietitian Recommendations/Changes: Recommend advanced diet as tolerated to regular. Will order 120ml vanilla EPHP 4x daily with medpass. Will monitor weight trends. Discharge Plan Admission Admit Date/Time: 03/18/25 00:16 Primary Reason for Your Visit: acute on chronic hypoxic resp failure, CHF and COPD exacerbation, pneumonia Attending Provider: Adela Farley Primary Care Provider: César Chinchilla Consulting Providers: Melvin Pollard Instructions Patient Instructions: Coping with Heart Failure, ED Pneumonia (Adult) Discharge Orders/Prescriptions Prescriptions: New amoxicillin-pot clavulanate 500-125 mg tablet 1 tab PO BID Qty: 10 0RF Continued tamsulosin 0.4 mg capsule 0.4 mg PO BID ascorbic acid (vitamin C) 500 mg tablet 500 mg PO BID finasteride 5 mg tablet 5 mg PO DAILY trazodone 50 mg tablet 25 mg PO QHS pantoprazole 20 mg tablet,delayed release (DR/EC) 20 mg PO DAILY cholecalciferol (vitamin D3) [Vitamin D3] 25 mcg (1,000 unit) Capsule 1,000 unit PO QHS melatonin 3 mg Tablet 3 mg PO QHS PRN PRN (Reason: Insomnia) Qty: 0 0RF nitroglycerin 0.4 mg Tablet, Sublingual 0.4 mg sublingual Q5M PRN (Reason: Cardiac/Chest Pain) Qty: 0 0RF menthol [Blue Gel] 2 % Gel 1 applic topical TID PRN PRN (Reason: Arthritis Pain 1-10) Qty: 0 0RF acetaminophen 500 mg Tablet 1,000 mg PO Q6H PRN PRN (Reason: Pain Score 1-10) Qty: 0 0RF dicyclomine 20 mg tablet 20 mg PO TID PRN (Reason: abdominal pain) Qty: 20 0RF ferrous sulfate [Feosol] 325 mg (65 mg iron) tablet 325 mg PO QHS levothyroxine 50 mcg Tablet 50 mcg PO DAILY loratadine [Claritin] 10 mg tablet 10 mg PO .q48 atorvastatin 40 mg tablet 40 mg PO QHS Qty: 30 11RF ranolazine 500 mg tablet extended release 12 hr 500 mg PO BID Qty: 60 11RF diltiazem HCl [Cardizem CD] 120 mg capsule,extended release 24hr 120 mg PO QAM isosorbide mononitrate 30 mg tablet extended release 24 hr 30 mg PO QAM amiodarone 100 mg tablet 100 mg PO BID Jardiance 10 mg tablet 10 mg PO QAM furosemide 40 mg tablet 40 mg PO BIDLX Qty: 60 11RF B-complex with vitamin C Tablet 1 tab PO BID Eliquis 2.5 mg tablet 2.5 mg PO BID potassium chloride [K-Tab] 20 mEq tablet extended release 20 meq PO BID magnesium chloride [Mag 64] 1 tab PO DAILY Referrals / Follow Up: César Chinchilla MD [Primary Care Provider] - Within 1 Week Disposition Disposition (needs filled in before D/C Order can be placed): [facility] (3) Pneumonia Qualifiers: Pneumonia type: due to unspecified organism Laterality: unspecified la terality Lung location: unspecified part of lung Qualified Code(s): J18.9 - Pneumonia, unspecified organism
--- NOTE | 2025-03-20 11:38 | PCM.DC.SUM ---
Providers Date of Admission: 03/18/25 Date of Discharge: 03/20/25 Primary Care Physician: Dr. César Chinchilla MD Reason For Visit: PNA, AE CHF, AECOPD, ACUTE RESP FAILURE AND Diagnosis Discharge Diagnosis (1) Acute hypoxemic respiratory failure: Status: Acute Code(s): J96.01 - Acute respiratory failure with hypoxia (2) Acute on chronic heart failure with preserved ejection fraction (HFpEF): Status: Acute Code(s): I50.33 - Acute on chronic diastolic (congestive) heart failure (3) Pneumonia: Status: Acute Code(s): J18.9 - Pneumonia, unspecified organism Qualifiers: Laterality: unspecified laterality Lung location: unspecified part of lung Pneumonia type: due to unspecified organism Qualified Code(s): J18.9 - Pneumonia, unspecified organism Plan #Acute on chronic hypoxic respiratory failure due to community acauired pneumonia and probable acute on chronic HFpEF and acute exacerbation of COPD improving. Now down to 2L of oxygen. On IV Zosyn and linezolid. Breathing treatments with bronchodilators. Urine for strep and Legionella negative. Also being diuresed with IV Lasix. Titrate oxygen to maintain saturation above 90%. Also on IV Solu-Medrol wbc is up to 14, likely due to steroids. #Elevated troponin: Initial troponin was around 86 and essentially stayed flat. EKG showed no acute ST changes. Likely due to troponin leak from the acute on chronic respiratory failure. Does have a history of CAD status post stents. On Imdur as well as sublingual nitroglycerin and cholesterol medication. #CAD s/p stents: On Imdur and ranolazine as well as high intensity statin #History of paroxysmal A-fib: On amiodarone and Cardizem as well as Eliquis. 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 Creatinine is 2.50 which is around his baseline. #Benign essential hypertension: On Lasix #Hyperlipidemia: On statin #Hypothyroidism: On Synthroid #Depression: On trazodone #BPH: On finasteride and Flomax #GERD: On PPI #Osteoarthritis: Continue pain meds DVT prophylaxis: Eliquis Disposition: anticipate dc over the next 24-48 hours. Medications at Discharge Home Medications tamsulosin 0.4 mg capsule 0.4 mg PO BID PROSTATE 11/18/21 ascorbic acid (vitamin C) 500 mg tablet 500 mg PO BID SUPPLEMENT 07/20/22 finasteride 5 mg tablet 5 mg PO DAILY PROSTATE 08/05/22 cholecalciferol (vitamin D3) 25 mcg (1,000 unit) capsule (Vitamin D3) 1,000 unit PO QHS SUPPLEMENT 02/19/23 trazodone 50 mg tablet 25 mg PO QHS INSOMNIA 02/28/24 ferrous sulfate 325 mg (65 mg iron) tablet (Feosol) 325 mg PO QHS ANEMIA 03/20/24 levothyroxine 50 mcg tablet 50 mcg PO DAILY THYROID 03/20/24 pantoprazole 20 mg tablet,delayed release 20 mg PO DAILY Gerd 08/28/24 melatonin 3 mg tablet 3 mg PO QHS PRN PRN Insomnia #0 tabs 12/17/24 menthol 2 % topical gel (Blue Gel) 1 applic topical TID PRN PRN Arthritis Pain 1-10 #0 grams 12/17/24 nitroglycerin 0.4 mg sublingual tablet 0.4 mg sublingual Q5M PRN Cardiac/Chest Pain #0 tabs 12/17/24 loratadine 10 mg tablet (Claritin) 10 mg PO .q48 allergies 12/28/24 acetaminophen 500 mg tablet 1,000 mg (2 x 500 mg) PO Q6H PRN PRN Pain Score 1-10 #0 tabs 01/02/25 atorvastatin 40 mg tablet 40 mg PO QHS cholesterol #30 tabs 01/14/25 ranolazine 500 mg tablet,extended release,12 hr 500 mg PO BID heart health #60 tabs 01/14/25 B-complex with vitamin C 1 tab PO BID supplement 01/16/25 amiodarone 100 mg tablet 100 mg PO BID heart 01/16/25 apixaban 2.5 mg tablet (Eliquis) 2.5 mg PO BID blood thinner 01/16/25 diltiazem HCl 120 mg capsule,extended release 24 hr (Cardizem CD) 120 mg PO QAM heart 01/16/25 empagliflozin 10 mg tablet (Jardiance) 10 mg PO QAM kidney 01/16/25 furosemide 40 mg tablet 40 mg PO BIDLX diuretic #60 tabs 01/16/25 isosorbide mononitrate 30 mg tablet,extended release 24 hr 30 mg PO QAM angina 01/16/25 magnesium chloride 1 tab PO DAILY supplement 01/16/25 potassium chloride 20 mEq tablet,extended release (K-Tab) 20 meq PO BID supplement 01/16/25 dicyclomine 20 mg tablet 20 mg PO TID PRN abdominal pain #20 tabs 02/23/25 amoxicillin 500 mg-potassium clavulanate 125 mg tablet 1 tab PO BID antibiotic #10 tabs 03/20/25 Hospital Course Operations None Procedures None Summary of Care Provided Minutes Spent on Discharge: 47 Hospital Course: Patient is an 84-year-old male with an extensive past medical history as outlined was admitted from the transitional care unit on 03/17/2025 with a complaint of increasing shortness of breath. His symptoms started 2 to 3 days prior to admission and have been progressively worsening. He was hypoxic in the TCU and was requiring 8 L of oxygen. He usually wore 4 L. He also had a nonproductive cough and complained of generalized malaise and weakness. He denied any chest pain or lower extremity edema, orthopnea or fever or chills. In the ED he was found to be febrile with temperature of 100.1 Fahrenheit and WBC was 11.7. Chest x-ray showed worsening central predominant airspace disease less likely pneumonia and to correlate for edema. proBNP was elevated at 33,000. Initial troponin was 86 but trended down was thought to be due to troponin leak from the heart failure. He was therefore admitted and managed for acute on chronic hypoxic respiratory failure due to acute exacerbation of heart failure as well as pneumonia and probable COPD exacerbation. He was started on IV antibiotics as well as IV Lasix and IV Solu-Medrol. Patient's breathing improved and he felt much better. He was weaned down to his baseline 2 L of oxygen. Respiratory panel was negative and urine for strep and Legionella were also negative. Blood cultures were also negative after 48 hours. Patient felt much better and was down to his baseline. He was therefore discharged back to the transitional care unit on 03/20/2025. He was discharged on p.o. Augmentin adjusted for his renal function for a 5-day course. He is to follow-up with his primary care doctor within 1 to 2 weeks. Patient seen and examined prior to discharge. He felt much better and had no complaints. He had an uneventful night. Review of systems otherwise negative. Labs and vitals reviewed. Home medication with and reconciled. Physical Exam Const alert, oriented x3, no apparent distress and average body habitus Constitutional Narrative: frail and weak General Appearance: cooperative and comfortable Orientation / Consciousness: awake Nutritional Appearance: thin HEENT normocephalic, head/scalp atraumatic, hearing grossly normal bilaterally, moist oral mucous membranes and oropharynx normal Mouth: oral and palatal mucosa normal Eyes PERRL, EOMs intact bilaterally and conjunctivae normal Neck no lymphadenopathy, supple and no JVD Lymph Lymphatic: no lymphedema noted Resp Resp Narrative: mildly diminished breath sounds bibasally, no wheezes or crackles. down to 4L of oxygen. Auscultation: rhonchi right lower Cardio regular rate, regular rhythm, S1 normal heart sound and S2 normal heart sound Cardio Narrative: Grade 3/6 crescendo GINA at SB. GI normal to inspection, nondistended, normoactive bowel sounds, soft to palpation, non-tender and non-distended Extremity normal to inspection, full ROM, normal capillary refill, no clubbing, cyanosis or edema and no calf tenderness General Extremity: no tenderness to palpation of joints or extremities Neuro oriented x3, CN's II-XII intact bilaterally, moves all extremities, no focal motor deficits, no sensory deficits noted and deep tendon reflexes 2+ bilaterally Sensorium / Orientation: awake, alert, oriented to person, oriented to place and oriented to time Speech: speech normal Psych thought process normal, cooperative and affect normal Appearance: appropriate Weight / BMI Weight Weight: 133 lb 2.547 oz Body Mass Index (BMI) 20.2 ABG / Lab / Microbiology Data 03/20/25 06:08 03/20/25 06:08 Laboratory: Laboratory Results - last 24 hr 03/20/25 06:08: WBC 16.3 H, RBC 2.55 L, Hgb 9.3 L, Hct 26.6 L, MCV 104.3 H, MCH 36.5 H, MCHC 35.0, RDW Std Deviation 57.6 H, RDW Coeff of Pablo 15.3 H, Plt Count 234, MPV 10.1, Immature Gran % (Auto) 2.100 H, Neut % (Auto) 93.9 H, Lymph % (Auto) 1.8 L, Bent % (Auto) 2.1, Eos % (Auto) 0.0, Baso % (Auto) 0.1, Absolute Neuts (auto) 15.3 H, Absolute Lymphs (auto) 0.29 L, Nucleated RBC % 0, Sodium 133, Potassium 4.2, Chloride 97 L, Carbon Dioxide 20.9 L, Anion Gap 15, BUN 51 H, Creatinine 2.72 H, Estim Creat Clear Calc 17.58 L, Est GFR (MDRD) Non-Af 22 L, BUN/Creatinine Ratio 18.9, Glucose 125 H, Calcium 7.0 L Microbiology: Microbiology 03/17/25 23:25 Blood Culture (Wb) - Anticubital Left Blood Culture - Preliminary No growth in 48 hours. 03/17/25 22:26 Blood Culture (Wb) - Anticubital Left Blood Culture - Preliminary No growth in 48 hours. 03/18/25 21:00 Mucosa - Nose Respiratory Panel (PCR) - Final 03/18/25 03:02 Urine, Clean Catch Legionella Antigen - Final 03/18/25 03:02 Urine, Clean Catch Streptococcus pneumoniae Antigen (M - Final 03/17/25 22:54 Mucosa - Nose SARS-CoV-2, Influenza & RSV (PCR) - Final D/C Instructions Discharge Activity: Return to Normal Activity DC O2, CPAP, BIPAP Needs Home O2 Discharge instructions: Yes Type of respiratory needs?: Oxygen Oxygen frequency: Continuous Continuous oxygen liters per minute: 2 DC home with Oxygen: Yes Home O2 MD Review: I have reviewed the oxygen testing, and the patient qualifies for home oxygen equipment and portability. The patient is mobile in the home and the community. Meaningful Use Info Meaningful Use Meaningful Use Diagnoses (Choose all that apply): CHF CHF ARIELLE/ARB ordered at discharge?: Yes Reason ARIELLE/ARB not ordered?: Worsening renal disease Documented LVEF (%): 60 Discharge Plan Admission Admit Date/Time: 03/18/25 00:16 Primary Reason for Your Visit: acute on chronic hypoxic resp failure, CHF and COPD exacerbation, pneumonia Attending Provider: Adela Farley Primary Care Provider: César Chinchilla Consulting Providers: Melvin Pollard Instructions Patient Instructions: Coping with Heart Failure, ED Pneumonia (Adult) Discharge Orders/Prescriptions Prescriptions: New amoxicillin-pot clavulanate 500-125 mg tablet 1 tab PO BID Qty: 10 0RF Continued tamsulosin 0.4 mg capsule 0.4 mg PO BID ascorbic acid (vitamin C) 500 mg tablet 500 mg PO BID finasteride 5 mg tablet 5 mg PO DAILY trazodone 50 mg tablet 25 mg PO QHS pantoprazole 20 mg tablet,delayed release (DR/EC) 20 mg PO DAILY cholecalciferol (vitamin D3) [Vitamin D3] 25 mcg (1,000 unit) Capsule 1,000 unit PO QHS melatonin 3 mg Tablet 3 mg PO QHS PRN PRN (Reason: Insomnia) Qty: 0 0RF nitroglycerin 0.4 mg Tablet, Sublingual 0.4 mg sublingual Q5M PRN (Reason: Cardiac/Chest Pain) Qty: 0 0RF menthol [Blue Gel] 2 % Gel 1 applic topical TID PRN PRN (Reason: Arthritis Pain 1-10) Qty: 0 0RF acetaminophen 500 mg Tablet 1,000 mg PO Q6H PRN PRN (Reason: Pain Score 1-10) Qty: 0 0RF dicyclomine 20 mg tablet 20 mg PO TID PRN (Reason: abdominal pain) Qty: 20 0RF ferrous sulfate [Feosol] 325 mg (65 mg iron) tablet 325 mg PO QHS levothyroxine 50 mcg Tablet 50 mcg PO DAILY loratadine [Claritin] 10 mg tablet 10 mg PO .q48 atorvastatin 40 mg tablet 40 mg PO QHS Qty: 30 11RF ranolazine 500 mg tablet extended release 12 hr 500 mg PO BID Qty: 60 11RF diltiazem HCl [Cardizem CD] 120 mg capsule,extended release 24hr 120 mg PO QAM isosorbide mononitrate 30 mg tablet extended release 24 hr 30 mg PO QAM amiodarone 100 mg tablet 100 mg PO BID Jardiance 10 mg tablet 10 mg PO QAM furosemide 40 mg tablet 40 mg PO BIDLX Qty: 60 11RF B-complex with vitamin C Tablet 1 tab PO BID Eliquis 2.5 mg tablet 2.5 mg PO BID potassium chloride [K-Tab] 20 mEq tablet extended release 20 meq PO BID magnesium chloride [Mag 64] 1 tab PO DAILY Referrals / Follow Up: César Chinchilla MD [Primary Care Provider] - Within 1 Week Disposition Disposition (needs filled in before D/C Order can be placed): [facility] Charges/Coding Visit Charges Inpatient E&M: 78190 Disch Hosp >30min
--- NOTE | 2025-03-20 12:30 | CASEMGMT ---
Patient has order for discharge. Discharge paperwork and medlist received from hospitalist. RADHA PORTER updated Tami in TCU, patient good to discharge to TCU at anytime. RADHA PORTER faxed transfer to extended care and medlist to TCU, copy placed on chart. RADHA PORTER updated patient regarding discharge to TCU today, patient appreciative and states he will call his family to update. Patient had no further questions or concerns. RADHA PORTER updated nurse to call report.
--- NOTE | 2025-03-20 12:52 | NURSING ---
Report called to [place] in TCU
== END 2025-03-20 13:25 | disposition skilled nursing facility (03) | DRG 193 ==
LOC: ED 23:28 → PCU 03-18 00:37
PROVIDERS: Admitting Provider Internal Medicine; Emergency Provider Emergency Medicine; PCP Family Medicine; Referring Provider Emergency Medicine; Visit Provider Student in an Organized Health Care Education/Training Program
DX: J18.9 Pneumonia, unspecified organism (principal); J96.01 Acute respiratory failure with hypoxia; I50.33 Acute on chronic diastolic (congestive) heart failure; I13.0 Hypertensive heart and chronic kidney disease with heart failure and stage 1 through stage 4 chronic kidney disease, or unspecified chronic kidney disease; N18.4 Chronic kidney disease, stage 4 (severe); J44.1 Chronic obstructive pulmonary disease with (acute) exacerbation; J44.0 Chronic obstructive pulmonary disease with (acute) lower respiratory infection; D50.9 Iron deficiency anemia, unspecified; E03.9 Hypothyroidism, unspecified; F32.A Depression, unspecified; I48.0 Paroxysmal atrial fibrillation; G47.33 Obstructive sleep apnea (adult) (pediatric); E78.00 Pure hypercholesterolemia, unspecified; I25.10 Atherosclerotic heart disease of native coronary artery without angina pectoris; M54.50 Low back pain, unspecified; K21.9 Gastro-esophageal reflux disease without esophagitis; M19.90 Unspecified osteoarthritis, unspecified site; I25.2 Old myocardial infarction; Z79.01 Long term (current) use of anticoagulants; G89.29 Other chronic pain; Z79.890 Hormone replacement therapy; Z95.5 Presence of coronary angioplasty implant and graft; Z95.0 Presence of cardiac pacemaker; Z79.899 Other long term (current) drug therapy; Z99.81 Dependence on supplemental oxygen; N40.0 Benign prostatic hyperplasia without lower urinary tract symptoms; Z99.89 Dependence on other enabling machines and devices; R79.89 Other specified abnormal findings of blood chemistry
CPT/HCPCS: 36415; 71045; 80048; 80053; 80061; 82607; 82746; 83605; 83735; 83880; 84100; 84443; 84484; 85025; 87040; 87449; 87631; 87633; 93005; 94640; 94668; 97162; 97165; 97530; 97535; 99285; J2020; A4216; J1938

== ENCOUNTER 2025-03-20 13:39 | Inpatient (IN) | payer MEDICARE, OTHER, SELFPAY ==
--- NOTE | 2025-03-20 14:19 | NURSING ---
Is Support Analyst Note; Activity Asset: Oscar Mcgregor has returned to TCU after brief stay in hospital and remains independent in his choice of daily activities. He prefers to have the newspaper everyday, watch tv and rest. He welcomes visits from the Molding Machine Operator Helper and therapy dog. His sister will bring in items from home he may need or want. Staff will remind him of weekly activities and respect his right to say no.
[2025-03-20 14:50] VITALS: BP 100/62; PULSE 60; RESP 17; TEMP 36.6; O2SAT 91
[2025-03-20 14:57] VITALS: BMI 19.5
[2025-03-20] MEDS: Potassium Chloride Oral Tablet 20 MEQ PO (16:58)
[2025-03-20] MEDS: Vitamin B Comp W-C Capsule 1 CAP PO (16:58)
--- NOTE | 2025-03-20 20:33 | HP.PCM_ITS ---
HPI - General General Date of Admission: 03/20/25 Date of Service: 03/20/25 Chief Complaint: Here for rehabilitation. HPI Narrative RICHIE HANSEN, is a 84 Male who presents with followin03/17/2025 [facility] ED TCU resident with shortness of breath. Pulsox 90% on high flow oxygen 8 liters per nasal cannula. Cough, fever 100.1, Albuterol aerosol given. Chest X-ray shows pneumonia, elevated troponin, elevated bnp. Antibiotics given. covid negative, flu negative rsv negative, viral panel sent. 03/17/2025 Admit [facility]. Zosyn IV, horne culture, urinary antigens for strep pneumo, legionella for pneumonia. Furosemide 40mg iv daily for acute on chronic HFpEF. Elevated troponin 2/2 demand ischemia. IV steroids, ATC aerosols, wean oxygen for copd exacerbation. 03/18/2025 Breathing improved, on 8 liters oxygen, usually on 2 liters oxygen. Zosyn, Linezolid for pneumonia. Lasix IV for acute on chronic HFpEF. Solu-medrol IV, ATC aerosols for copd exacerbation. 03/19/2025 Feeling better, oxygen 4 liters, chronic dry cough. Oxygen down to 2 liters. Zosyn, Linezolid, urinary antigens negative for strep pneumoniae, negative legionella for pneumonia. Lasix IV for acute on chronic HFpEF. Solu-medrol iv, aerosols, for copd exacerbation. WBC 14 2/2 steroids. 03/20/2025 Admit to TCU with debility, here for rehabilitation, strengthening, prior to discharge home alone. [facility] Medical History Elevated troponin COPD (chronic obstructive pulmonary disease) Iron deficiency anemia Acute kidney injury Abnormal CT scan, gastrointestinal tract Angiodysplasia of stomach Acute respiratory failure Bright red blood per rectum History of atrial fibrillation Chronic kidney disease Acute lower GI bleeding Atrial fibrillation Bradycardia CKD (chronic kidney disease) stage 4, GFR 15-29 ml/min Acute on chronic heart failure with reduced ejection fraction and diastolic dysfunction Pulmonary hypertension Combined systolic and diastolic congestive heart failure Coronary artery disease 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 Complete heart 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 Intermittent complete heart block History of atrial fibrillation COPD (chronic obstructive pulmonary disease) with emphysema CHF (congestive heart failure) Hypoxia Chronic kidney disease Chronic anticoagulation Acute dyspnea Hypotension Abnormal abdominal ultrasound Persistent atrial fibrillation Hearing loss, left Hearing loss, right Anxiety Chronic pain Rheumatoid arthritis Irregular heart beat Hypertension Hypothyroidism Hiatal hernia Acute constipation Acute exacerbation of chronic low back pain Wears glasses Thyroid disease Ambulates with cane Arthritis History of renal disease Anemia High cholesterol Easy bruising Excessive bleeding History of leukemia Back pain Difficulty chewing History of diverticulitis Gastric reflux Sleep apnea History of pain when walking History of edema History of echocardiogram History of stress test Cardiology follow-up encounter History of heart attack Nausea and vomiting Chronic anemia Diarrhea Colitis Sleep apnea Acute kidney injury superimposed on chronic kidney disease On amiodarone therapy Elevated LFTs Thoracic aortic aneurysm (TAA) Chronic heart failure with preserved ejection fraction (HFpEF) Nonrheumatic mitral (valve) insufficiency Atypical atrial flutter (12/2020) Elevated liver enzymes Debility Dysphagia Osteoarthritis History of colon polyps Cancer Kidney stones Kidney disease Non-smoker CPAP (continuous positive airway pressure) dependence Atrial fibrillation Myocardial infarct Chronic renal insufficiency Acute gastrointestinal bleeding Chronic kidney disease Benign prostatic hyperplasia Stage 3b chronic kidney disease GI bleed (2012) Non-rheumatic tricuspid valve insufficiency Secondary pulmonary arterial hypertension Essential (primary) hypertension BPH (benign prostatic hyperplasia) History of hyperthyroidism Paroxysmal atrial fibrillation 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 HLD (hyperlipidemia) Home Medications ?Medication ?Instructions ?Recorded ?Last Taken ?Type tamsulosin 0.4 mg capsule 0.4 mg PO BID PROSTATE 11/1802/26/25 History ascorbic acid (vitamin C) 500 mg 500 mg PO BID SUPPLEM ENT 07/20/22 02/26/25 History tablet finasteride 5 mg tablet 5 mg PO DAILY PROSTATE 08/0502/26/25 History cholecalciferol (vitamin D3) 25 1,000 unit PO QHS SUPP LEMENT 02/19/23 02/22/25 History mcg (1,000 unit) capsule (Vitamin D3) trazodone 50 mg tablet 25 mg PO QHS INSOMNIA 02/25/25 History ferrous sulfate 325 mg (65 mg 325 mg PO QHS ANEMIA 02/22/25 History iron) tablet (Feosol) levothyroxine 50 mcg tablet 50 mcg PO DAILY THYROID 02/26/25 History pantoprazole 20 mg tablet,delayed 20 mg PO DAILY Gerd 08/28/24 02/26/25 History release melatonin 3 mg tablet 3 mg PO QHS PRN PRN Insomnia #0 12/17/24 Unknown Rx tabs menthol 2 % topical gel (Blue Gel) 1 applic topical TI D PRN PRN 12/17/24 12/27/24 Rx Arthritis Pain 1-10 #0 grams nitroglycerin 0.4 mg sublingual 0.4 mg sublingual Q5M PRN 12/17/24 Unknown Rx tablet Cardiac/Chest Pain #0 tabs loratadine 10 mg tablet (Claritin) 10 mg PO .q48 aller gies 12/28/24 02/22/25 History acetaminophen 500 mg tablet 1,000 mg (2 x 500 mg) PO Q 6H PRN 01/02/25 Unknown Rx PRN Pain Score 1-10 #0 tabs atorvastatin 40 mg tablet 40 mg PO QHS cholesterol #30 tabs 01/14/25 02/25/25 Rx ranolazine 500 mg tablet,extended 500 mg PO BID heart health #60 tabs 01/14/25 02/26/25 Rx release,12 hr B-complex with vitamin C 1 tab PO BID supplement 12/2802/22/25 History amiodarone 100 mg tablet 100 mg PO BID heart 01/16/25 02/26/25 History apixaban 2.5 mg tablet (Eliquis) 2.5 mg PO BID blood t hinner 01/16/25 02/23/25 History diltiazem HCl 120 mg 120 mg PO QAM heart 01/16/25 02/26/25 History capsule,extended release 24 hr (Cardizem CD) empagliflozin 10 mg tablet 10 mg PO QAM kidney 5 02/26/25 History (Jardiance) furosemide 40 mg tablet 40 mg PO BIDLX diuretic #60 tabs 01/16/25 02/26/25 Rx isosorbide mononitrate 30 mg 30 mg PO QAM angina 01/1602/26/25 History tablet,extended release 24 hr magnesium chloride 1 tab PO DAILY supplement 02/26/25 History potassium chloride 20 mEq 20 meq PO BID supplement 02/26/25 History tablet,extended release (K-Tab) dicyclomine 20 mg tablet 20 mg PO TID PRN abdominal p ain 02/23/25 Unknown Rx #20 tabs amoxicillin 500 mg-potassium 1 tab PO BID antibiotic # 10 tabs 03/20/25 Unknown Rx clavulanate 125 mg tablet Allergy/AdvReac Type Severity Reaction Status Date / Time diclofenac Allergy rash Verified 03/17/25 22:19 prednisone Allergy Rash Verified 03/17/25 22:19 Family History Father Cancer Prostate cancer Mother Hypertension Sister Hypertension Surgical History Status post placement of cardiac pacemaker History of colonoscopy (03/26/24) History of back surgery History of cardiac catheterization History of esophagogastroduodenoscopy (EGD) History of cardioversion (06/18/19) History of radiofrequency ablation procedure for cardiac arrhythmia (11/11/11) History of electrophysiologic study (08/08/00) History of left heart catheterization (07/17/12) History of hemorrhoidectomy History of Zenaida fundoplication History of coronary artery stent placement (08/04/00) History of hernia repair History of back surgery Social History household members: none housing: house Smoking Status: Never smoker alcohol intake: never substance use type: does not use caffeine: No ROS Constitutional Constitutional: Denies chills, fever(s) or weight gain ENT HEENT: Denies headache(s), nasal congestion or nasal discharge Cardiovascular Cardiovascular: Denies chest pain or palpitations Respiratory/Chest Respiratory/Chest: Denies cough, excessive phlegm production or shortness of breath with exertion Gastrointestinal Gastrointestinal: Denies abdominal pain, nausea or vomiting Genitourinary Genitourinary: Denies dysuria Musculoskeletal Musculoskeletal: Denies joint pain or joint swelling Integumentary Integumentary: Denies rash or wounds Neurologic Neurologic: Denies focal weakness, numbness or tingling Psychiatric Psychiatric: Denies anxiety, auditory hallucinations, depression, homicidal ideation or suicidal ideation Vital Signs Vital Signs Vital Signs: 03/20/25 14:50 03/20/25 17:05 Temperature 98 F Temperature Source Temporal Pulse Rate 60 Pulse Rhythm Regular Pulse Strength Normal (2+) Respiratory Rate 17 Respiratory Effort Normal Non-Labored Respiratory Depth Normal Respiratory Pattern Normal Blood Pressure 100/62 Blood Pressure Mean 74 Blood Pressure Source Monitor Pulse Ox 91 Oxygen Delivery Method Room Air Room Air Weight Weight: 58.147 kg Body Mass Index (BMI) 19.5 Physical Exam Const alert General Appearance: cooperative HEENT normocephalic Eyes PERRL and EOMs intact bilaterally Neck supple, no JVD and no carotid bruits Resp normal respiratory effort, normal air movement and clear to auscultation bilaterally Cardio regular rate and regular rhythm GI normal to inspection, nondistended, normoactive bowel sounds, non-tender and non-distended Extremity normal capillary refill General Extremity: Negative for edema Skin no rashes or lesions noted General Skin Exam: no breakdown Psych affect normal Appearance: appropriate Assessment & Plan Assessment/Plan (1) Debility: (2) Acute and chronic respiratory failure with hypoxia: (3) Pneumonia: QUALIFIERS: Laterality: unspecified laterality Lung location: unspecified part of lung Pneumonia type: due to unspecified organism Qualified Code(s): J18.9 - Pneumonia, unspecified organism (4) Acute on chronic heart failure with preserved ejection fraction (HFpEF): (5) COPD exacerbation: (6) Elevated troponin: (7) Atrial fibrillation: (8) Coronary artery disease: (9) Iron deficiency anemia: QUALIFIERS: Iron deficiency anemia type: unspecified iron deficiency Qualified Code(s): D50.9 - Iron deficiency anemia, unspecified (10) HLD (hyperlipidemia): QUALIFIERS: Hyperlipidemia type: unspecified Qualified Code(s): E78.5 - Hyperlipidemia, unspecified (11) Vitamin D deficiency: (12) BPH (benign prostatic hyperplasia): (13) Hypothyroidism: (14) Allergic rhinitis: (15) Hypomagnesemia: (16) Insomnia: (17) GERD (gastroesophageal reflux disease): (18) Hypokalemia: (19) Leg cramps: PLAN: Plan 84 year old male with below past medical history hospitalized for acute on chronic respiratory failure with hypoxia 2/2 pneumonia, acute on chronic HFpEF, copd exacerbation, complicated by elevated troponin 2/2 demand ischemia, admitted to TCU with debility, here for rehabilitation, strengthening, prior to discharge home alone. * Debility - PT/OT. * Pain - Tylenol 1000mg q6 prn, Blue Goo topical tid prn. * Bowel - senna/colace 1 tablet bid. * Adult immunization - Administer pneumonia vaccine, covid vaccine, flu vaccine as appropriate. * DVT prophylaxis - Eliquis. * Atrial fibrillation - Cardizem cd 120mg qam, Amiodarone 100mg bid, Eliquis 2.5mg bid. * Pneumonia - Augmentin 500mg bid thru 03/27/2025. * Iron deficiency anemia - Ferrous sulfate 325mg qhs, Vitamin C 500mg bidcm. * Hyperlipidemia - Atorvastatin 40mg qhs. * Vitamin D deficiency - D3 25mcg daily. * IBS - Bentyl 20mg tid prn. * Chronic HFpEF - Isosorbide 30mg qam, Jardiance 10mg daily, Furosemide 40mg bidcm. * BPH - Finasteride 5mg daily, Tamsulosin 0.4mg bid. * CAD - Isosorbide 30mg daily, Ranexa 500mg bid, Eliquis 2.5mg bid, NTG 0.4mg sl q5m prn. * Hypothyroidism - Levothyroxine 50mcg daily. * Allergic rhinitis - Loratadine 10mg q48, * Hypomagnesemia - Magnesium chloride 64mg daily. * Insomnia - Melatonin 3mg qhs prn. * GERD - Pantoprazole 20mg daily. * Hypokalemia - KCL 20meq bidcm. * Leg cramps - Vitamin B complex 1 capsule bidcm. The following psychotropic medication was present on admission: Trazodone 25mg qhs. Psychotropic medication therapy is indicated for a diagnosis of: Insomnia. Based on my clinical evaluation, continuation of the medication is necessary at this time. Gradual dose reduction plan (select one): ____ GDR will be attempted. Will monitor patient symptoms and behaviors in response to GDR. __x__ GRD contraindicated. Reason contraindicated: stable chronic oysterman use.
[2025-03-20 21:40] VITALS: BP 115/65; PULSE 60; O2SAT 94
[2025-03-20] MEDS: Cholecalciferol (VIT D3) 25 MCG TABLET (1,000 UNITS) PO (21:41)
[2025-03-20] MEDS: APIXABAN 2.5 MG TABLET (WCH) PO (21:42)
[2025-03-21] MEDS: MENTHOL 226.8 GM JAR 1 APPLIC TOPICAL (00:10)
[2025-03-21 06:15] LABS: Hematocrit 30.5 % (40-54); Hemoglobin 10.7 g/dL (13.0-16.5); Immature Granulocytes Count 0.500 X10^3/uL (0.0-0.0); Mean Corp Hgb Conc 35.1 g/dL (32-36); Mean Corpuscular Volume 103.7 fL (80-94); Mean Platelet Vol. 9.7 fl (6.2-12.0); NRBC Flagged by Analyzer 0 % (0-5); POSITIVE DIFFERENTIAL YES; Platelet Count 256 K/mm3 (150-450); RBC Distribution Width CV 15.2 % (11.6-14.6); RBC Distribution Width SD 56.7 fl (35.1-43.9); Red Blood Count 2.94 M/mm3 (4.6-6.2); White Blood Count 14.5 K/mm3 (4.4-11.0)
[2025-03-21 06:35] VITALS: BP 123/71; PULSE 61
[2025-03-21 06:45] VITALS: PULSE 61; O2SAT 93
[2025-03-21 06:45] LABS: Anion Gap 16 (5-15); BUN 61 mg/dL (4-19); BUN/Creat Ratio 19.6 RATIO (10-20); Calcium,Total 7.0 mg/dL (7.6-11.0); Carbon Dioxide 20.0 mmol/L (21.0-32.0); Chloride 98 mmol/L (98-108); Estimated Creatinine Clearance 14.80 ml/min (50-250); Glucose 122 mg/dL (70-99); Potassium 4.1 mmol/L (3.3-5.1)
[2025-03-21 08:01] VITALS: O2SAT 94
--- NOTE | 2025-03-21 11:20 | CASEMGMT ---
Social Work Pt readmitted. SW spoke with pt and informed him that he admitted on day 20 of Medicare benefit. SW inquired about DC plans as IDT continues to have concerns with pt returning home alone. Pt stated he was not in the mindset to think about DC plans currently. SW respected and will continue to follow for assistance. Roya Sarabia MSW [employer]
--- NOTE | 2025-03-21 12:31 | NURSING ---
Addendum entered by Yamilka Douglas 03/21/25 19:21: new order to increase bentyl to 4 times daily. Original Note: pt down for CT scan this AM. pt came back to room and is complaining of stomach pain like cramping. PRN Bentyl given per request. Results read to Dr. Samuel via telephone. New orders to d/c Augmentin. and start IV Zosyn BID for 7 days, phamracy dosing due to decreased kidney function. Pt updated and agreeable to plan. all morning medications held per pt request, MD updated.
[2025-03-21] MEDS: Piperacil/Tazobactam 3.375 GM in 0.9% Normal Saline (50mL MB+) 50 ML IV ×2 (14:28→20:19)
[2025-03-21 16:00] VITALS: BP 132/81; PULSE 61; RESP 18; TEMP 36.8; O2SAT 96
[2025-03-21] MEDS: 0.9% Saline Lock 10 ML Syringe IV (20:25)
[2025-03-21] MEDS: 0.9% Normal Saline 250 ML IV.SOLN. IV (20:31)
[2025-03-21] MEDS: APIXABAN 2.5 MG TABLET (WCH) PO (20:35)
--- NOTE | 2025-03-21 20:36 | NURSING ---
pt c/o abdomnial cramping 03/07, requested oxyir. Administered oxyir prn and bentyl with some night medications. pt refused to take all medications. Will reevaluate.
--- NOTE | 2025-03-22 02:30 | NURSING ---
pts O2 89% 2L NC, titrated up to 4L NC O2 97%
[2025-03-22 04:29] VITALS: O2SAT 96
[2025-03-22 06:06] LABS: Anion Gap 14 (5-15); BUN 63 mg/dL (4-19); BUN/Creat Ratio 19.2 RATIO (10-20); Calcium,Total 7.0 mg/dL (7.6-11.0); Carbon Dioxide 22.0 mmol/L (21.0-32.0); Chloride 102 mmol/L (98-108); Estimated Creatinine Clearance 13.99 ml/min (50-250); Glucose 106 mg/dL (70-99); Potassium 3.7 mmol/L (3.3-5.1)
[2025-03-22 08:44] VITALS: BP 143/82; PULSE 62; RESP 18; TEMP 36.6; O2SAT 100
[2025-03-22] MEDS: Vitamin B Comp W-C Capsule 1 CAP PO ×2 (08:51→16:42)
[2025-03-22] MEDS: Potassium Chloride Oral Tablet 20 MEQ PO ×2 (08:52→16:41)
[2025-03-22] MEDS: APIXABAN 2.5 MG TABLET (WCH) PO ×2 (08:53→22:01)
[2025-03-22] MEDS: Senna/Docusate Sodium 1 Tablet PO ×2 (08:54→22:02)
[2025-03-22] MEDS: Magnesium Chloride 64 MG Delay Rel.Tablet PO (08:54)
[2025-03-22] MEDS: Piperacil/Tazobactam 3.375 GM in 0.9% Normal Saline (50mL MB+) 50 ML IV ×2 (10:49→22:04)
[2025-03-22] MEDS: 0.9% Saline Lock 10 ML Syringe IV (10:54)
[2025-03-22 12:43] LABS: Mucous, Urine 0 SEEN /hpf (<or=2+); Red Blood Cells-Urine 0 SEEN /hpf (0-5)
[2025-03-22 13:04] LABS: Color, Urine Yellow (Yellow); Glucose, Dipstick 250 mg/dl (Normal); Ketone-Dipstick Negative (Negative); Leukocyte Esterase-Dipstick Negative /ul (Negative); Nitrite-Dipstick Negative (Negative); Occult Blood-Urine 10 /ul (Negative); Protein-Dipstick 30 mg/dl (Negative); Specific Gravity, Urine 1.015 (1.002-1.030); Urine Bilirubin Dipstick Negative (Negative)
[2025-03-22 13:15] LABS: Squamous Epithelial Cells - UA 0-5 SEEN /hpf (0-5)
--- NOTE | 2025-03-22 14:25 | PHA.CONS_ITS ---
Documented by User: Shireen Marcus 03/22/25 15:04 TCU RX Drug Regimen Review Subjective/Objective Subjective/Objective Subjective: TCU Admission. 84 YOM TCU presented to the ER with SOB. Hospitalized for acute on chronic respiratory failure with hypoxia 2/2 pneumonia, acute on chronic HFpEF, copd exacerbation, complicated by elevated troponin 2/2 demand ischemia. Admitted to TCU with debility for strengthening and rehabilitation. Objective: Allergies diclofenac Allergy (Verified 03/17/25 22:19) rash prednisone Allergy (Verified 03/17/25 22:19) Rash Current Medications Generic Name Dose Route Start Last Admin Trade Name Freq PRN Reason Stop Dose Admin Acetaminophen 1,000 mg 03/20/25 14:10 03/21/25 00:09 Acetaminophen 500 Mg Tablet PO 1,000 mg Q6H PRN PRN Administration Pain Score 1-10 Amiodarone HCl 100 mg 03/20/25 22:00 03/22/25 08:52 Amiodarone 200 Mg Tablet PO 100 mg BID ILEANA Administration Apixaban 2.5 mg 03/20/25 22:00 03/22/25 08:53 Apixaban 2.5 Mg Tablet ([facility]) PO 2.5 mg BID ILEANA Administration Ascorbic Acid 500 mg 03/20/25 17:00 03/22/25 08:52 Ascorbic Acid 500 Mg Tablet PO 500 mg BIDCM ILENAA Administration Atorvastatin Calcium 40 mg 03/20/25 22:00 03/21/25 20:14 Atorvastatin Calcium 40 Mg Tablet PO Not Given QHS ILEANA Cholecalciferol 25 mcg 03/20/25 22:00 03/21/25 20:14 Cholecalciferol (Vit D3) 25 Mcg Tablet (1,000 Units) PO Not Given QHS ILEANA Dicyclomine HCl 20 mg 03/21/25 17:19 03/22/25 10:54 Dicyclomine 10 Mg Capsule PO 20 mg Q6H PRN PRN Administration abdominal pain Diltiazem HCl 120 mg 03/21/25 10:00 03/22/25 08:52 Diltiazem Cd 120 Mg Capsule PO 120 mg QAM ILEANA Administration Protocol Empagliflozin 10 mg 03/21/25 10:00 03/22/25 08:53 Empagliflozin 10 Mg Tablet PO 10 mg QAM ILEANA Administration Ferrous Sulfate 325 mg 03/20/25 22:00 03/21/25 20:14 Ferrous Sulfate 325 Mg Tablet PO Not Given QHS ILEANA Finasteride 5 mg 03/21/25 10:00 03/22/25 08:54 Finasteride 5 Mg Tablet PO 5 mg DAILY ILEANA Administration Piperacillin Sod/Tazobactam 50 mls @ 12.5 mls/hr 03/21/25 12:30 03/22/25 10:49 Sod 3.375 gm/ Sodium Chloride IV 03/28/25 12:31 12.5 mls/hr Q12 ILEANA Administration Isosorbide Mononitrate 30 mg 03/21/25 10:00 03/22/25 08:53 Isosorbide Mononitrate 30 Mg Tablet PO 30 mg QAM ILEANA Administration Protocol Levothyroxine Sodium 50 mcg 03/21/25 06:00 03/22/25 06:21 Levothyroxine 50 Mcg Tablet PO 50 mcg DAILY@0600 [facility] Administration Loratadine 10 mg 03/21/25 10:00 03/21/25 13:48 Loratadine 10 Mg Tablet PO Not Given Q48 [facility] Magnesium Chloride 64 mg 03/21/25 10:00 03/22/25 08:54 Magnesium Chloride 64 Mg Delay Rel.Tablet PO 64 mg DAILY ILEANA Administration Melatonin 3 mg 03/20/25 14:10 Melatonin 3 Mg Tablet PO QHS PRN PRN Insomnia Menthol 1 applic 03/20/25 14:10 03/21/25 00:10 Menthol 226.8 Gm Jar TOPICAL 1 applic TID PRN PRN Administration Arthritis Pain 1-10 Multivitamins 1 cap 03/20/25 17:00 03/22/25 08:51 Vitamin B Comp W-C Capsule PO 1 cap BIDCM ILEANA Administration Nitroglycerin 0.4 mg 03/20/25 14:30 Nitroglycerin (Inpatient Use) 0.4 Mg Tab.Subl SL Q5M PRN Cardiac/Chest Pain Nutritional Formula (Lactose Free) 120 ml 03/21/25 17:45 03/22/25 12:42 Ensure Plus High Protein 120 Ml Liquid PO Not Given TIDCM [facility] Oxycodone HCl 5 mg 03/21/25 16:48 03/22/25 03:44 Oxycodone 5 Mg Tablet PO 5 mg Q4H PRN PRN Administration Pain Score 6-10 or Pre PT/OT Pantoprazole Sodium 20 mg 03/21/25 10:00 03/22/25 08:54 Pantoprazole Sodium 20 Mg Tablet PO 20 mg DAILY ILEANA Administration Potassium Chloride 20 meq 03/20/25 17:00 03/22/25 08:52 Potassium Chloride Oral Tablet 20 Meq PO 20 meq BIDCM ILEANA Administration Ranolazine 500 mg 03/20/25 22:00 03/22/25 08:54 Ranolazine 500 Mg Tablet PO 500 mg BID ILEANA Administration Senna/Docusate Sodium 1 tablet 03/20/25 22:00 03/22/25 08:54 Senna/Docusate Sodium 1 Tablet PO 1 tablet BID ILEANA Administration Sodium Chloride 10 - 40 ml 03/20/25 14:36 03/22/25 10:54 0.9% Saline Lock 10 Ml Syringe IV 20 ml UD PRN Administration SALINE FLUSH Sodium Chloride 250 ml 03/21/25 13:58 03/21/25 20:31 0.9% Normal Saline 250 Ml Iv.Soln. IV 250 ml DAILY PRN Administration flush Tamsulosin HCl 0.4 mg 03/20/25 17:30 03/22/25 08:52 Tamsulosin Hcl 0.4 Mg Capsule PO 0.4 mg BID@9558,5050 ILEANA Administration Trazodone HCl 25 mg 03/20/25 22:00 03/21/25 20:35 Trazodone 50 Mg Tablet PO 25 mg QHS ILEANA Administration Problem List Vitamin D deficiency (Acute) Acute and chronic respiratory failure with hypoxia (Chronic) COPD exacerbation (Chronic) Pneumonia (Acute) Elevated troponin (Acute) Iron deficiency anemia (Acute) Acute on chronic heart failure with preserved ejection fraction (HFpEF) (Acute) Leg cramps (Acute) Insomnia (Acute) Hypomagnesemia (Acute) GERD (gastroesophageal reflux disease) (Acute) Atrial fibrillation (Acute) BPH (benign prostatic hyperplasia) (Acute) Debility (Acute) Hypokalemia (Acute) Coronary artery disease (Acute) Allergic rhinitis (Acute) Hypothyroidism (Acute) HLD (hyperlipidemia) (Chronic) Vital Signs Temp Pulse Resp BP Pulse Ox O2 Del Method O2 Flow Rate 97.9 F 62 18 143/82 H 100 Nasal Cannula 2 03/22/25 08:44 03/22/25 08:44 03/22/25 08:44 03/22/25 08:44 03/22/25 08:44 03/22/25 08:44 03/22/25 10:06 Oxygen Flow Rate (L/min) 2 Oxygen Delivery Method Nasal Cannula Weight: 58.147 kg Body Mass Index (BMI) 19.5 Sodium 138 mmol/L (133-145) 03/22/25 05:17 Potassium 3.7 mmol/L (3.3-5.1) 03/22/25 05:17 Chloride 102 mmol/L (98-108) 03/22/25 05:17 Carbon Dioxide 22.0 mmol/L (21.0-32.0) 03/22/25 05:17 Anion Gap 14 (5-15) 03/22/25 05:17 BUN 63 mg/dL (4-19) H 03/22/25 05:17 Creatinine 3.29 mg/dL (0.70-1.20) H 03/22/25 05:17 Est GFR (MDRD) Non-Af 18 (>60) L 03/22/25 05:17 BUN/Creatinine Ratio 19.2 RATIO (10-20) 03/22/25 05:17 Glucose 106 mg/dL (70-99) H 03/22/25 05:17 Assessment/Plan: 1. Pain: acetaminophen 1000mg PO Q6H PRN pain 1-10, Menthol blue gel topical TID PRN arthritis pain 1-10 and oxycodone 5mg PO Q4H PRN pain 6-10. One dose of Menthol given, 1 dose of acetaminophen given (pain or 4 in knee) and 2 doses of oxycodone (pain of 6-7 in abdomen/generalized pain). Please continue to monitor for PRN usage, increased pain, constipation, respiratory depression and BEERs (falls). 2. Bowel: senna/docusate 1T PO BID. Please continue to monitor for constipation and/or diarrhea. Last documented bowel movement was 03/20/25. 3. Atrial fibrillation/CAD/Chronic HFpEF: diltiazem CD 120mg PO daily, amiodarone 100mg PO BID, isosorbide mononitrate 30mg PO daily, empagliflozin 10mg PO daily, ranolazine 500mg PO BID, nitroglycerin 0.4mg SL Q5M PRN chest pain (no doses given) and apixaban 2.5mg PO BID (dose appropriate, age >80, weight <60kg and SCr >1.5mg/dL). Please continue to monitor HR (60-62), BP (last 115/65, 143/82), S/S of bleeding, S/S UTI, weight gain, hemoglobin (last 10.7g/dL), sodium (last 138mmol/L), potassium (last 3.7mmol/L), SOB, chest pain, PRN usage, headache. 4. Iron deficiency anemia: ferrous sulfate 325mg PO QHS and ascorbic acid 500mg PO BID. Please continue to monitor hemoglobin (last 11.1g/dL), dark stools, constipation, iron studies (last 08/30/24). 5. Hyperlipidemia: atorvastatin 40mg PO QHS. Please continue to monitor lipid panel (last 03/18/25), LFTs (last 03/18/25) and muscle pain. 6. Abdominal pain: dicyclomine 20mg PO TID PRN abdominal pain. Resident has had 3 doses. Please continue to monitor for abdominal cramps and PRN usage. 7. Enteritis/pneumonia: piperacillin/tazobactam 3.375gm IV Q12 thru 03/28/25. Please continue to monitor for S/S of pneumonia, platelets, diarrhea, renal function (dose appropriate for CrCl 14mL/min). 8. Hypothyroidism: levothyroxine 50mcg PO daily. Please continue to monitor for TSH (last 03/18/25) and S/S of hypo/hyperthyroidism. 9. BPH: finasteride 5mg PO daily, tamsulosin 0.4mg PO BID. Please continue to monitor for S/S of BPH, BP (last 143/82). 10. GERD: pantoprazole 20mg PO daily. Please continue to monitor for S/S of GERD and diarrhea (BEERs). 11. Hypokalemia: potassium chloride 20mEq PO BIDCM. Please continue to monitor potassium (last 3.7mmol/L). 12. Allergic rhinitis: loratadine 10mg PO Q48. Please continue to monitor for allergies and renal function (dose appropriate for CrCl 14mL/min). 13. Insomnia: melatonin 3mg PO QHS PRN insomnia. No PRN doses given. Please continue to monitor for insomnia and PRN usage. 14. Leg cramps/vitamin D deficiency/hypomagnesemia: cholecalciferol 25mcg PO QHS, vitamin B complex 1C PO BIDCM and magnesium chloride 64mg PO daily. Please continue to monitor vitamin D (last 12/20/24) and magnesium (last 2.2mg/dL). Assessment/Plan for indications treated with psychotropic medications: 1. Insomnia: trazodone 25mg PO QHS. Please see physician note regarding GDR. Monitor for drowsiness, dizziness or confusion, dry mouth, constipation, sy mptoms of serotonin syndrome (including agitation, confusion, hyperreflexia, rigidity/myoclonus, tremor, tachycardia, tachypnea), suicidal thoughts or behaviors (Boxed Warning). Monitor HR (can cause bradycardia or tachycardia). HR since admission = 60-62. Monitor for orthostatic hypotension, including postural dizziness, syncope or falls. Check orthostatic vital signs if suspicion of orthostasis. Monitor for efficacy including resident symptoms, behaviors and indications of distress. Monitor for tolerability including mental status, cognition, excessive sleepiness, withdrawal or decreased participation in activities and decline in physical functioning. Maximize use of nonpharmacologic/behavioral interventions to facilitate dose reduction or discontinuation as appropriate. Please evaluate the appropriateness of GDR unless contraindicated. If appropriate, GDR should be attempted in 2 separate quarters within the first year of use or admission to TCU. If GDR attempted, monitor resident symptoms/behaviors. Medical chart and medication regimen reviewed. The following medication irregularities or issues were identified: None Date Date of Note: 03/22/25 Documented by User: Dr. Marcus Samuel MD 03/22/25 16:59 TCU RX Drug Regimen Review Provider Comments Provider responsibility Provider Comments to Recommendations by Pharmacy Agree
[2025-03-22] MEDS: Ensure Plus High Protein 120 ML LIQUID PO (16:42)
[2025-03-22 17:59] VITALS: BP 136/68; PULSE 60; TEMP 36.6
[2025-03-22] MEDS: Cholecalciferol (VIT D3) 25 MCG TABLET (1,000 UNITS) PO (22:03)
[2025-03-23 08:19] VITALS: O2SAT 100
[2025-03-23 08:44] LABS: Albumin, Serum 3.1 g/dL (3.4-4.8); Anion Gap 17 (5-15); BUN 66 mg/dL (4-19); BUN/Creat Ratio 17.0 RATIO (10-20); Calcium,Total 7.6 mg/dL (7.6-11.0); Carbon Dioxide 20.2 mmol/L (21.0-32.0); Chloride 99 mmol/L (98-108); Estimated Creatinine Clearance 11.86 ml/min (50-250); Glucose 157 mg/dL (70-99); Potassium 4.3 mmol/L (3.3-5.1)
[2025-03-23] MEDS: 0.9% Saline Lock 10 ML Syringe IV ×2 (09:35→22:41)
[2025-03-23] MEDS: Magnesium Chloride 64 MG Delay Rel.Tablet PO (09:36)
[2025-03-23] MEDS: Senna/Docusate Sodium 1 Tablet PO ×2 (09:36→22:40)
[2025-03-23] MEDS: Vitamin B Comp W-C Capsule 1 CAP PO ×2 (09:36→16:05)
[2025-03-23] MEDS: APIXABAN 2.5 MG TABLET (WCH) PO ×2 (09:37→22:40)
[2025-03-23] MEDS: Potassium Chloride Oral Tablet 20 MEQ PO ×2 (09:37→16:06)
[2025-03-23] MEDS: Piperacil/Tazobactam 3.375 GM in 0.9% Normal Saline (50mL MB+) 50 ML IV ×2 (09:38→23:03)
--- NOTE | 2025-03-23 09:59 | NURSING ---
RN entered room pt reported SOB. Oxygen off. SPO2 80% on RA. O2 NC 4L applied SPO2 94%. Respirations 24/min. Pt reported SOB requesting breathing tx. Dr Samuel notified. Ordered entered.
[2025-03-23 10:08] VITALS: PULSE 62; RESP 20; O2SAT 96
--- NOTE | 2025-03-23 11:35 | CON.PCM.RE_ITS ---
Assessment & Plan Assessment/Plan (1) Acute kidney injury: (2) CKD (chronic kidney disease) stage 4, GFR 15-29 ml/min: PLAN: Plan Assessment/Plan: Patient is a 84-year-old male with past history of CKD stage G4, hypertension, CAD status post OR, combined systolic and diastolic dysfunction, atrial fibrillation, COPD, pulmonary hypertension, hypothyroidism, ALVARADO, BPH, iron deficiency anemia, GERD, major depressive disorder, osteoarthritis, and hyperlipidemia. Patient was recently admitted to [facility] between 03/18/2025 until 03/20/2025 with acute hypoxic respiratory failure attributed to CAP, COPD exacerbation and exacerbation of HFpEF. Patient was treated with antibiotic, bronchodilator, and IV furosemide. Patient improved clinically and was transferred to TCU on 03/20/2025. Nephrology is asked to see the patient because of elevated serum creatinine at 3.88 mg/dL from baseline of 2.50 to 2.70 mg/dL. Nephrology is following for FE on CKD. Acute kidney injury on chronic kidney disease stage G4. Baseline serum creatinine has been around 2.50 to 2.70 mg/dL. I suspect patient has underlying arterionephrosclerosis. FE is most likely due to hemodynamic changes. Patient has been on furosemide since his admission to the [facility] on 03/18/2025. His oral intake has been poor, and there is no signs of volume overload on exam. Serum creatinine has increased to 3.88 mg/dL today on 03/23/2025 from 2.50 mg/dL on 03/19/2025 which was close to his usual baseline. Urinalysis from 03/22/2025 appears to be benign. Since there is no signs of volume overload, I have stopped furosemide for now. Today, 03/23/2025, would be the first day without diuretic. I encouraged patient to push oral intake as able. If renal function fails to stabilize or improve off of furosemide, I will check urine indices and renal ultrasound (most recent CT abdomen from 03/21/2025 was negative for hydronephrosis). Will recheck renal function again daily for the next few days. Recheck volume status, acid-base and electrolytes as well. At this point, there is no need for kidney replacement therapy. HPI Consult Data Date of Consult: 03/24/25 HPI Narrative Reason for Consultation: Acute kidney injury on chronic kidney disease HPI Narrative: Patient is a 84-year-old male with past history of CKD stage G4, hypertension, CAD status post OR, combined systolic and diastolic dysfunction, atrial fibrillation, COPD, pulmonary hypertension, hypothyroidism, ALVARADO, BPH, iron deficiency anemia, GERD, major depressive disorder, osteoarthritis, and hyperlipidemia. Patient was recently admitted to [facility] between 03/18/2025 until 03/20/2025 with acute hypoxic respiratory failure attributed to community- acquired pneumonia and possibly COPD exacerbation. Patient was also treated for possible exacerbation of HFpEF with IV furosemide. Patient was transferred to TCU on 03/20/2025. Nephrology is asked to the patient because of FE on CKD. Baseline serum creatinine appears to be around 2.50 to 2.70 mg/dL. Serum creatinine has increased to 3.88 mg/dL today on 03/23/2025. Patient denies chest pain. He does have dyspnea especially with exertion. However, severity of dyspnea has not increased since transfer to TCU from [facility]. Patient denies diarrhea. He has occasional nausea with dry heaves. There is no vomiting. The patient does report poor appetite compared to baseline. Patient denies orthopnea or lower extremity edema. Patient denies urinary urgency, frequency or hesitation. There has been no gross hematuria or urinary frothing. Patient has not been on NSAIDs. [facility] Medical History CKD (chronic kidney disease) stage 4, GFR 15-29 ml/min Elevated troponin COPD (chronic obstructive pulmonary disease) Iron deficiency anemia Acute kidney injury Abnormal CT scan, gastrointestinal tract Angiodysplasia of stomach Acute respiratory failure Bright red blood per rectum History of atrial fibrillation Chronic kidney disease Acute lower GI bleeding Atrial fibrillation Bradycardia Acute on chronic heart failure with reduced ejection fraction and diastolic dysfunction Pulmonary hypertension Combined systolic and diastolic congestive heart failure Coronary artery disease 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 Complete heart 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 Intermittent complete heart block History of atrial fibrillation COPD (chronic obstructive pulmonary disease) with emphysema CHF (congestive heart failure) Hypoxia Chronic kidney disease Chronic anticoagulation Acute dyspnea Hypotension Abnormal abdominal ultrasound Persistent atrial fibrillation Hearing loss, left Hearing loss, right Anxiety Chronic pain Rheumatoid arthritis Irregular heart beat Hypertension Hypothyroidism Hiatal hernia Acute constipation Acute exacerbation of chronic low back pain Wears glasses Thyroid disease Ambulates with cane Arthritis History of renal disease Anemia High cholesterol Easy bruising Excessive bleeding History of leukemia Back pain Difficulty chewing History of diverticulitis Gastric reflux Sleep apnea History of pain when walking History of edema History of echocardiogram History of stress test Cardiology follow-up encounter History of heart attack Nausea and vomiting Chronic anemia Diarrhea Colitis Sleep apnea Acute kidney injury superimposed on chronic kidney disease On amiodarone therapy Elevated LFTs Thoracic aortic aneurysm (TAA) Chronic heart failure with preserved ejection fraction (HFpEF) Nonrheumatic mitral (valve) insufficiency Atypical atrial flutter (12/2020) Elevated liver enzymes Debility Dysphagia Osteoarthritis History of colon polyps Cancer Kidney stones Kidney disease Non-smoker CPAP (continuous positive airway pressure) dependence Atrial fibrillation Myocardial infarct Chronic renal insufficiency Acute gastrointestinal bleeding Chronic kidney disease Benign prostatic hyperplasia Stage 3b chronic kidney disease GI bleed (2012) Non-rheumatic tricuspid valve insufficiency Secondary pulmonary arterial hypertension Essential (primary) hypertension BPH (benign prostatic hyperplasia) History of hyperthyroidism Paroxysmal atrial fibrillation 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 heart disease of [place] coronary artery without angina pectoris HLD (hyperlipidemia) Home Medications ?Medication ?Instructions ?Recorded ?Last Taken ?Type tamsulosin 0.4 mg capsule 0.4 mg PO BID PROSTATE 11/1802/26/25 History ascorbic acid (vitamin C) 500 mg 500 mg PO BID SUPPLEM ENT 07/20/22 02/26/25 History tablet finasteride 5 mg tablet 5 mg PO DAILY PROSTATE 08/0502/26/25 History cholecalciferol (vitamin D3) 25 1,000 unit PO QHS SUPP LEMENT 02/19/23 02/22/25 History mcg (1,000 unit) capsule (Vitamin D3) trazodone 50 mg tablet 25 mg PO QHS INSOMNIA 02/25/25 History ferrous sulfate 325 mg (65 mg 325 mg PO QHS ANEMIA 02/22/25 History iron) tablet (Feosol) levothyroxine 50 mcg tablet 50 mcg PO DAILY THYROID 02/26/25 History pantoprazole 20 mg tablet,delayed 20 mg PO DAILY Gerd 08/28/24 02/26/25 History release melatonin 3 mg tablet 3 mg PO QHS PRN PRN Insomnia #0 12/17/24 Unknown Rx tabs menthol 2 % topical gel (Blue Gel) 1 applic topical TI D PRN PRN 12/17/24 12/27/24 Rx Arthritis Pain 1-10 #0 grams nitroglycerin 0.4 mg sublingual 0.4 mg sublingual Q5M PRN 12/17/24 Unknown Rx tablet Cardiac/Chest Pain #0 tabs loratadine 10 mg tablet (Claritin) 10 mg PO .q48 aller gies 12/28/24 02/22/25 History acetaminophen 500 mg tablet 1,000 mg (2 x 500 mg) PO Q 6H PRN 01/02/25 Unknown Rx PRN Pain Score 1-10 #0 tabs atorvastatin 40 mg tablet 40 mg PO QHS cholesterol #30 tabs 01/14/25 02/25/25 Rx ranolazine 500 mg tablet,extended 500 mg PO BID heart health #60 tabs 01/14/25 02/26/25 Rx release,12 hr B-complex with vitamin C 1 tab PO BID supplement 12/2802/22/25 History amiodarone 100 mg tablet 100 mg PO BID heart 01/16/25 02/26/25 History apixaban 2.5 mg tablet (Eliquis) 2.5 mg PO BID blood t hinner 01/16/25 02/23/25 History diltiazem HCl 120 mg 120 mg PO QAM heart 01/16/25 02/26/25 History capsule,extended release 24 hr (Cardizem CD) empagliflozin 10 mg tablet 10 mg PO QAM kidney 5 02/26/25 History (Jardiance) furosemide 40 mg tablet 40 mg PO BIDLX diuretic #60 tabs 01/16/25 02/26/25 Rx isosorbide mononitrate 30 mg 30 mg PO QAM angina 01/1602/26/25 History tablet,extended release 24 hr magnesium chloride 1 tab PO DAILY supplement 02/26/25 History potassium chloride 20 mEq 20 meq PO BID supplement 02/26/25 History tablet,extended release (K-Tab) dicyclomine 20 mg tablet 20 mg PO TID PRN abdominal p ain 02/23/25 Unknown Rx #20 tabs amoxicillin 500 mg-potassium 1 tab PO BID antibiotic # 10 tabs 03/20/25 Unknown Rx clavulanate 125 mg tablet Allergy/AdvReac Type Severity Reaction Status Date / Time diclofenac Allergy rash Verified 03/24/25 08:40 prednisone Allergy Rash Verified 03/24/25 08:40 Family History Father Cancer Prostate cancer Mother Hypertension Sister Hypertension Surgical History Status post placement of cardiac pacemaker History of colonoscopy (03/26/24) History of back surgery History of cardiac catheterization History of esophagogastroduodenoscopy (EGD) History of cardioversion (06/18/19) History of radiofrequency ablation procedure for cardiac arrhythmia (11/11/11) History of electrophysiologic study (08/08/00) History of left heart catheterization (07/17/12) History of hemorrhoidectomy History of Zenaida fundoplication History of coronary artery stent placement (08/04/00) History of hernia repair History of back surgery Social History household members: none housing: house Smoking Status: Never smoker alcohol intake: never substance use type: does not use caffeine: No ROS ROS Narrative As per HPI, otherwise noncontributory. Physical Exam Narrative General: Alert and oriented x3, NAD. HEENT: Normocephalic, atraumatic. Mucous membrane moist without erythema. PERRLA, EOMI. Neck: Supple, no JVD. Trachea is midline. No thyromegaly or lymphadenopathy. Cardiovascular: Normal S1, S2. No rubs, murmurs, or gallops. Respiratory: Decreased breath sound at bases. There is no wheezing or crackles. Abdomen: Normal bowel sounds, soft, nontender, no guarding or rebound, no organomegaly. Extremities: No clubbing, cyanosis, or edema. Musculoskeletal: Full passive range of motion, no joint swelling. Psychiatric: Normal mood and affect. Skin: Warm and dry, no rash. Neurologic: Cranial nerve II to XII are grossly intact. No focal neurologic deficits. Lab / Micro Data 03/21/25 05:36 03/23/25 07:24 Labs: Laboratory Results - last 24 hr 03/22/25 12:15: Urine Color Yellow, Urine Clarity Clear, Urine pH 5.0, Ur Specific [place] 1.015, Urine Protein 30 H, Urine Glucose (UA) 250 H, Urine Ketones Negative, Urine Occult Blood 10 H, Urine Nitrite Negative, Urine Bilirubin Negative, Urine Urobilinogen Normal, Ur Leukocyte Esterase Negative, Urine RBC 0 SEEN, Urine WBC 0 SEEN, Ur Squamous Epith Cells 0-5 SEEN, Urine Bacteria 0 SEEN, Urine Mucus 0 SEEN 03/23/25 07:24: Sodium 136, Potassium 4.3, Chloride 99, Carbon Dioxide 20.2 L, A nion Gap 17 H, BUN 66 H, Creatinine 3.88 H, Estim Creat Clear Calc 11.86 L, Est GFR (MDRD) Non-Af 15 L, BUN/Creatinine Ratio 17.0, Glucose 157 H, Calcium 7.6, P hosphorus 4.7 H, Albumin 3.1 L
[2025-03-23 12:27] VITALS: BP 135/65; PULSE 60; RESP 18; TEMP 36.8; O2SAT 94
[2025-03-23 13:03] VITALS: BMI 19.3
[2025-03-23 15:09] VITALS: PULSE 66; RESP 20; O2SAT 95
--- NOTE | 2025-03-23 15:15 | CPS ---
This RT set up patient's ASV BIPAP machine, EPAP 6cmH2O, 515 with 2lpm O2 bled in.
[2025-03-23] MEDS: Ensure Plus High Protein 120 ML LIQUID PO (16:06)
--- NOTE | 2025-03-23 21:54 | NURSING ---
patient c/o acid indigestion, arabella amy and PRN bentyl ineffective per patient report, Dr. Jimmie joyce, Dr. Samuel updated via phone call, new order to increase pantoprazole to 40mg daily and give MOM 30ml x1 dose now, orders verified by read back and acknowledged correct.
[2025-03-23 22:36] VITALS: BP 139/70; PULSE 60; O2SAT 90
[2025-03-23] MEDS: Cholecalciferol (VIT D3) 25 MCG TABLET (1,000 UNITS) PO (22:41)
[2025-03-24 00:33] VITALS: PULSE 60; RESP 24
[2025-03-24 01:27] VITALS: BP 140/69; PULSE 60; RESP 24; TEMP 36.4; O2SAT 94
[2025-03-24 06:15] VITALS: PULSE 60; RESP 20; O2SAT 93
--- NOTE | 2025-03-24 06:42 | NURSING ---
Patient c/o feeling like he is choking and that his throat is closing up. Patient states he has hiatal hernia and thinks it is getting worse. written communication left for Dr. Samuel. vital signs stable.
[2025-03-24 06:55] VITALS: PULSE 66; RESP 24; O2SAT 92
[2025-03-24] MEDS: Vitamin B Comp W-C Capsule 1 CAP PO (08:07)
[2025-03-24 08:10] VITALS: BP 145/74; PULSE 60; RESP 22; TEMP 36.1; O2SAT 91
--- NOTE | 2025-03-24 08:43 | NURSING ---
This nurse entered pts room pt felt very SOB and chest felt tight. BP 145/74 HR 60 SpO2 88% on 5 L NC Temp 97.0 Temporal. O2 increased to 5.5 L NC and pt SpO2 rechecked and 90%. Dr. Samuel called and N.O. received to send pt to Emergency Room. Report called and pt transferred to ER. Sister in-law Neelima called and updated.
--- NOTE | 2025-03-24 17:10 | DS.PCM_ITS ---
Providers Date of Admission: 03/20/25 Primary Care Physician: Dr. César Chinchilla MD Consultations 03/22/25 07:45 Consult: Nephrology Routine Consulting Provider: Dacia Gudino Reason for Consult: Acute on chronic kidney failure. EMERGENT Consult: No MD Notified: Yes Date Notified: 03/22/25 Time Notified: 08:41 Method of Notification: Answering Service Reason For Visit: ACUTE RESPIRATORY FAILURE/PNEUMONIA Diagnosis Discharge Diagnosis (1) Acute kidney injury: Status: Acute Code(s): N17.9 - Acute kidney failure, unspecified (2) CKD (chronic kidney disease) stage 4, GFR 15-29 ml/min: Status: Chronic Code(s): N18.4 - Chronic kidney disease, stage 4 (severe) Plan 84 year old male with below past medical history hospitalized for acute on chronic respiratory failure with hypoxia 2/2 pneumonia, acute on chronic HFpEF, copd exacerbation, complicated by elevated troponin 2/2 demand ischemia, admitted to TCU with debility, here for rehabilitation, strengthening, prior to discharge home alone. * Debility - PT/OT. * Pain - Tylenol 1000mg q6 prn, Blue Goo topical tid prn. * Bowel - senna/colace 1 tablet bid. * Adult immunization - Administer pneumonia vaccine, covid vaccine, flu vaccine as appropriate. * DVT prophylaxis - Eliquis. * Atrial fibrillation - Cardizem cd 120mg qam, Amiodarone 100mg bid, Eliquis 2.5mg bid. * Pneumonia - Augmentin 500mg bid thru 03/27/2025. * Iron deficiency anemia - Ferrous sulfate 325mg qhs, Vitamin C 500mg bidcm. * Hyperlipidemia - Atorvastatin 40mg qhs. * Vitamin D deficiency - D3 25mcg daily. * IBS - Bentyl 20mg tid prn. * Chronic HFpEF - Isosorbide 30mg qam, Jardiance 10mg daily, Furosemide 40mg bidcm. * BPH - Finasteride 5mg daily, Tamsulosin 0.4mg bid. * CAD - Isosorbide 30mg daily, Ranexa 500mg bid, Eliquis 2.5mg bid, NTG 0.4mg sl q5m prn. * Hypothyroidism - Levothyroxine 50mcg daily. * Allergic rhinitis - Loratadine 10mg q48, * Hypomagnesemia - Magnesium chloride 64mg daily. * Insomnia - Melatonin 3mg qhs prn. * GERD - Pantoprazole 20mg daily. * Hypokalemia - KCL 20meq bidcm. * Leg cramps - Vitamin B complex 1 capsule bidcm. The following psychotropic medication was present on admission: Trazodone 25mg qhs. Psychotropic medication therapy is indicated for a diagnosis of: Insomnia. Based on my clinical evaluation, continuation of the medication is necessary at this time. Gradual dose reduction plan (select one): ____ GDR will be attempted. Will monitor patient symptoms and behaviors in response to GDR. __x__ GRD contraindicated. 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 Medications at Discharge Home Medications tamsulosin 0.4 mg capsule 0.4 mg PO BID PROSTATE 11/18/21 ascorbic acid (vitamin C) 500 mg tablet 500 mg PO BID SUPPLEMENT 07/20/22 finasteride 5 mg tablet 5 mg PO DAILY PROSTATE 08/05/22 cholecalciferol (vitamin D3) 25 mcg (1,000 unit) capsule (Vitamin D3) 1,000 unit PO QHS SUPPLEMENT 02/19/23 trazodone 50 mg tablet 25 mg PO QHS INSOMNIA 02/28/24 ferrous sulfate 325 mg (65 mg iron) tablet (Feosol) 325 mg PO QHS ANEMIA 03/20/24 levothyroxine 50 mcg tablet 50 mcg PO DAILY THYROID 03/20/24 pantoprazole 20 mg tablet,delayed release 20 mg PO DAILY Gerd 08/28/24 melatonin 3 mg tablet 3 mg PO QHS PRN PRN Insomnia #0 tabs 12/17/24 menthol 2 % topical gel (Blue Gel) 1 applic topical TID PRN PRN Arthritis Pain 1-10 #0 grams 12/17/24 nitroglycerin 0.4 mg sublingual tablet 0.4 mg sublingual Q5M PRN Cardiac/Chest Pain #0 tabs 12/17/24 loratadine 10 mg tablet (Claritin) 10 mg PO .q48 allergies 12/28/24 acetaminophen 500 mg tablet 1,000 mg (2 x 500 mg) PO Q6H PRN PRN Pain Score 1-10 #0 tabs 01/02/25 atorvastatin 40 mg tablet 40 mg PO QHS cholesterol #30 tabs 01/14/25 ranolazine 500 mg tablet,extended release,12 hr 500 mg PO BID heart health #60 tabs 01/14/25 B-complex with vitamin C 1 tab PO BID supplement 01/16/25 amiodarone 100 mg tablet 100 mg PO BID heart 01/16/25 apixaban 2.5 mg tablet (Eliquis) 2.5 mg PO BID blood thinner 01/16/25 diltiazem HCl 120 mg capsule,extended release 24 hr (Cardizem CD) 120 mg PO QAM heart 01/16/25 empagliflozin 10 mg tablet (Jardiance) 10 mg PO QAM kidney 01/16/25 furosemide 40 mg tablet 40 mg PO BIDLX diuretic #60 tabs 01/16/25 isosorbide mononitrate 30 mg tablet,extended release 24 hr 30 mg PO QAM angina 01/16/25 magnesium chloride 1 tab PO DAILY supplement 01/16/25 potassium chloride 20 mEq tablet,extended release (K-Tab) 20 meq PO BID supplement 01/16/25 dicyclomine 20 mg tablet 20 mg PO TID PRN abdominal pain #20 tabs 02/23/25 amoxicillin 500 mg-potassium clavulanate 125 mg tablet 1 tab PO BID antibiotic #10 tabs 03/20/25 Hospital Course Operations None Procedures None Summary of Care Provided Minutes Spent on Discharge: 15 Hospital Course: 84 year old male with below past medical history hospitalized for acute on chronic respiratory failure with hypoxia 2/2 pneumonia, acute on chronic HFpEF, copd exacerbation, complicated by elevated troponin 2/2 demand ischemia, admitted to TCU with debility, here for rehabilitation, strengthening, prior to discharge home alone. Patient on Zosyn IV for enteritis. Furosemide 40mg bid held 2/2 rising Creatinine. 03/24/2025 Balbir with worsening respiratory status, increased oxygen requirements, despite bronchodilators. Discharge to [facility] ER 03/24/2025 for evaluation, admission to hospital. Weight / BMI Weight Weight: 58.06 kg Body Mass Index (BMI) 19.3 ABG / Lab / Microbiology Data 03/21/25 05:36 03/23/25 07:24 D/C Instructions DC O2, CPAP, BIPAP Needs Home O2 Discharge instructions: No Additional Instructions: Discharge to [facility] ER 03/24/2025 for evaluation, admission to hospital. Meaningful Use Info Meaningful Use Meaningful Use Diagnoses (Choose all that apply): None applicable Discharge Plan Admission Admit Date/Time: 03/20/25 13:39 Primary Reason for Your Visit: Debility. Attending Provider: Marcus Samuel Chi Primary Care Provider: César Chinchilla Consulting Providers: Dacia Gudino Instructions Additional Instructions / Restrictions: Discharge to [facility] ER 03/24/2025 for evaluation, admission to hospital. Discharge Orders/Prescriptions Prescriptions: No Action tamsulosin 0.4 mg capsule 0.4 mg PO BID ascorbic acid (vitamin C) 500 mg tablet 500 mg PO BID finasteride 5 mg tablet 5 mg PO DAILY trazodone 50 mg tablet 25 mg PO QHS pantoprazole 20 mg tablet,delayed release (DR/EC) 20 mg PO DAILY cholecalciferol (vitamin D3) [Vitamin D3] 25 mcg (1,000 unit) Capsule 1,000 unit PO QHS melatonin 3 mg Tablet 3 mg PO QHS PRN PRN (Reason: Insomnia) Qty: 0 0RF nitroglycerin 0.4 mg Tablet, Sublingual 0.4 mg sublingual Q5M PRN (Reason: Cardiac/Chest Pain) Qty: 0 0RF menthol [Blue Gel] 2 % Gel 1 applic topical TID PRN PRN (Reason: Arthritis Pain 1-10) Qty: 0 0RF acetaminophen 500 mg Tablet 1,000 mg PO Q6H PRN PRN (Reason: Pain Score 1-10) Qty: 0 0RF dicyclomine 20 mg tablet 20 mg PO TID PRN (Reason: abdominal pain) Qty: 20 0RF amoxicillin-pot clavulanate 500-125 mg tablet 1 tab PO BID Qty: 10 0RF ferrous sulfate [Feosol] 325 mg (65 mg iron) tablet 325 mg PO QHS levothyroxine 50 mcg Tablet 50 mcg PO DAILY loratadine [Claritin] 10 mg tablet 10 mg PO .q48 atorvastatin 40 mg tablet 40 mg PO QHS Qty: 30 11RF ranolazine 500 mg tablet extended release 12 hr 500 mg PO BID Qty: 60 11RF diltiazem HCl [Cardizem CD] 120 mg capsule,extended release 24hr 120 mg PO QAM isosorbide mononitrate 30 mg tablet extended release 24 hr 30 mg PO QAM amiodarone 100 mg tablet 100 mg PO BID Jardiance 10 mg tablet 10 mg PO QAM furosemide 40 mg tablet 40 mg PO BIDLX Qty: 60 11RF B-complex with vitamin C Tablet 1 tab PO BID Eliquis 2.5 mg tablet 2.5 mg PO BID potassium chloride [K-Tab] 20 mEq tablet extended release 20 meq PO BID magnesium chloride [Mag 64] 1 tab PO DAILY Referrals / Follow Up: César Chinchilla MD [Primary Care Provider] - Disposition Disposition (needs filled in before D/C Order can be placed): Acute Care Hospital [facility]
--- NOTE | 2025-04-02 10:39 | MDS.RN ---
Information for the MDS was obtained from review of the clinical record, interview of resident, staff, and direct observation of resident?s care.
== END 2025-03-24 08:40 | disposition short-term general hospital (02) | DRG 193 ==
PROVIDERS: Internal Medicine Nephrology; Admitting Provider Family Medicine Geriatric Medicine; PCP Family Medicine; Referring Provider Family Medicine Geriatric Medicine; Visit Provider Family Medicine Geriatric Medicine
DX: J18.9 Pneumonia, unspecified organism (principal); I50.43 Acute on chronic combined systolic (congestive) and diastolic (congestive) heart failure; I24.89 Other forms of acute ischemic heart disease; J96.11 Chronic respiratory failure with hypoxia; N17.9 Acute kidney failure, unspecified; N18.4 Chronic kidney disease, stage 4 (severe); J44.0 Chronic obstructive pulmonary disease with (acute) lower respiratory infection; I13.0 Hypertensive heart and chronic kidney disease with heart failure and stage 1 through stage 4 chronic kidney disease, or unspecified chronic kidney disease; I48.19 Other persistent atrial fibrillation; D63.1 Anemia in chronic kidney disease; E03.9 Hypothyroidism, unspecified; D50.9 Iron deficiency anemia, unspecified; K21.9 Gastro-esophageal reflux disease without esophagitis; E55.9 Vitamin D deficiency, unspecified; J30.9 Allergic rhinitis, unspecified; E78.00 Pure hypercholesterolemia, unspecified; I25.10 Atherosclerotic heart disease of native coronary artery without angina pectoris; E87.6 Hypokalemia; K52.9 Noninfective gastroenteritis and colitis, unspecified; Z95.5 Presence of coronary angioplasty implant and graft; N40.0 Benign prostatic hyperplasia without lower urinary tract symptoms; G47.00 Insomnia, unspecified; Z79.899 Other long term (current) drug therapy; Z79.890 Hormone replacement therapy; Z99.81 Dependence on supplemental oxygen
CPT/HCPCS: 36415; 80048; 80069; 81001; 85025; 94640; 97110; 97116; 97162; 97166; 97530; 97535; 97802; A4216

== ENCOUNTER → 2025-03-21 | Outpatient (CLI) | payer MEDICARE, OTHER, SELFPAY ==
--- NOTE | 2025-03-21 10:05 | CT_ITS ---
PROCEDURE: ABDOMEN/PEL W ORAL CONT ONLY 03/21/2025 REASON FOR EXAM: ABD PAIN, R/O DIVERTICULITIS TECHNIQUE: ABDOMEN/PEL W ORAL CONT ONLY Noncontrast technique limits evaluation of the abdominal and pelvic viscera. Coronal and Sagittal reconstruction series were provided. One or more dose reduction techniques were used (e.g., Automated exposure control, adjustment of the mA and/or kV according to patient size, use of iterative reconstruction technique). RADIATION DOSE SUMMARY: DLP: 400 mGycm COMPARISON: CT abdomen pelvis 02/23/2025. FINDINGS: Lung bases: Small right and trace left pleural effusions with adjacent atelectasis. Interlobular septal thickening within the bibasilar lungs. Stable moderate cardiomegaly with partially visualized pacemaker wires. Coronary artery and aortic valvular calcifications. Liver: The unopacified liver is unremarkable. No biliary ductal dilation. Gallbladder: No radiopaque stones within the gallbladder. Spleen: Unremarkable. Pancreas: The unopacified pancreas is atrophic. Adrenals: No adrenal mass. Kidneys: Bilateral renal cysts and additional hypodensities. Severe bilateral renal cortical atrophy. Punctate right renal calcification, likely vascular. No hydronephrosis. Bladder: Mildly distended and unremarkable. Reproductive Organs: Surgical clips within the prostate gland, likely brachytherapy seeds. Bowel: Oral contrast material opacifies the stomach, small and proximal large bowel. There is wall thickening with lack of normal colonic haustral extending from the terminal ileum, ascending to the transverse colon. Severe distal colonic diverticulosis without obvious diverticulitis, however visualization is limited without the use of IV contrast. Trace pelvic fluid within the right lower pelvis. No free air. Normal appendix. Lymph nodes: Visualization is limited without the use of IV contrast. No large lymphadenopathy. Vasculature: Moderate calcific plaque of the aortoiliac vessels. Bones: Thoracolumbar spondylosis with severe lower thoracic/upper lumbar vertebral body wedge compression deformities with prior cement augmentation within the T10, T12 and L1 vertebral bodies. Prior laminectomy at L3-5. CT/Abdomen/Pel W ORAL Cont Only IMPRESSION: 1. Wall thickening and lack of haustral markings of the terminal ileum, ascendi ng and transverse colon, most compatible with enteritis. 2. Severe distal colonic diverticulosis without obvious diverticulitis, however visualization is limited without the use of IV contrast. 3. Stable moderate cardiomegaly with development of bilateral pleural effusions and interlobular septal thickening, most compatible with CHF/volume overload. Pneumonitis/pneumonia could appear simila r. Clinical and laboratory correlation recommended. Reading Location: [id number]
== END | disposition home or self-care (01) ==
PROVIDERS: PCP Family Medicine; Referring Provider Family Medicine Geriatric Medicine; Visit Provider Family Medicine Geriatric Medicine
DX: R10.9 Unspecified abdominal pain (principal)
CPT/HCPCS: 74176

== ENCOUNTER 2025-03-24 08:35 | Inpatient (IN) | payer MEDICARE, OTHER, SELFPAY ==
[2025-03-24] VITALS (16 sets, daily range): BP systolic 123–152; BP diastolic 61–93; PULSE 60–103; RESP 16–30; TEMP 36.5–36.8; O2SAT 88–95; BMI 21.2; BMI 19.8
--- NOTE | 2025-03-24 08:45 | ED.VIS.DYS ---
HPI History of Present Illness Chief Complaint: Shortness of Breath Informant: patient Onset/Context/Timing Onset: Days (2) Context: gradual Timing: Continuous Quality: Positive for Orthopnea Worsened by: Lying flat Relieved by: Oxygen Associated Symptoms Negative for cough, rhinorrhea, post nasal drip, fever, sore throat, chills, sweats, clear sputum, white sputum, yellow sputum or green sputum Narrative Narrative: Patient presents with shortness of breath that has been getting worse over the past 2 days. Patient states is gradually getting worse. Patient states it is constant. Patient states it is worse when he lays flat. Patient states nothing seems to help with his breathing. Patient was transferred from TCU where he was on 2 L nasal cannula. Patient had to have his O2 increased to 6 L nasal cannula with maintaining oxygen saturation of 91% while on 6 L. Patient denies any fevers or chills. Patient denies any cough. Patient denies any chest pain. Patient denies any lower extremity edema. [facility] Medical History CKD (chronic kidney disease) stage 4, GFR 15-29 ml/min Elevated troponin COPD (chronic obstructive pulmonary disease) Iron deficiency anemia Acute kidney injury Abnormal CT scan, gastrointestinal tract Angiodysplasia of stomach Acute respiratory failure Bright red blood per rectum History of atrial fibrillation Chronic kidney disease Acute lower GI bleeding Atrial fibrillation Bradycardia Acute on chronic heart failure with reduced ejection fraction and diastolic dysfunction Pulmonary hypertension Combined systolic and diastolic congestive heart failure Coronary artery disease 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 Complete heart 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 Intermittent complete heart block History of atrial fibrillation COPD (chronic obstructive pulmonary disease) with emphysema CHF (congestive heart failure) Hypoxia Chronic kidney disease Chronic anticoagulation Acute dyspnea Hypotension Abnormal abdominal ultrasound Persistent atrial fibrillation Hearing loss, left Hearing loss, right Anxiety Chronic pain Rheumatoid arthritis Irregular heart beat Hypertension Hypothyroidism Hiatal hernia Acute constipation Acute exacerbation of chronic low back pain Wears glasses Thyroid disease Ambulates with cane Arthritis History of renal disease Anemia High cholesterol Easy bruising Excessive bleeding History of leukemia Back pain Difficulty chewing History of diverticulitis Gastric reflux Sleep apnea History of pain when walking History of edema History of echocardiogram History of stress test Cardiology follow-up encounter History of heart attack Nausea and vomiting Chronic anemia Diarrhea Colitis Sleep apnea Acute kidney injury superimposed on chronic kidney disease On amiodarone therapy Elevated LFTs Thoracic aortic aneurysm (TAA) Chronic heart failure with preserved ejection fraction (HFpEF) Nonrheumatic mitral (valve) insufficiency Atypical atrial flutter (12/2020) Elevated liver enzymes Debility Dysphagia Osteoarthritis History of colon polyps Cancer Kidney stones Kidney disease Non-smoker CPAP (continuous positive airway pressure) dependence Atrial fibrillation Myocardial infarct Chronic renal insufficiency Acute gastrointestinal bleeding Chronic kidney disease Benign prostatic hyperplasia Stage 3b chronic kidney disease GI bleed (2012) Non-rheumatic tricuspid valve insufficiency Secondary pulmonary arterial hypertension Essential (primary) hypertension BPH (benign prostatic hyperplasia) History of hyperthyroidism Paroxysmal atrial fibrillation 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 heart disease of [place] coronary artery without angina pectoris HLD (hyperlipidemia) Home Medications ?Medication ?Instructions ?Recorded ?Last Taken ?Type tamsulosin 0.4 mg capsule 0.4 mg PO BID PROSTATE 11/18/21 02/26/25 History ascorbic acid (vitamin C) 500 mg 500 mg PO BID SUPPLEMENT 07/20/22 02/26/25 History tablet finasteride 5 mg tablet 5 mg PO DAILY PROSTATE 08/05/22 02/26/25 History cholecalciferol (vitamin D3) 25 1,000 unit PO QHS SUPPLEMENT 02/19/23 02/22/25 History mcg (1,000 unit) capsule (Vitamin D3) trazodone 50 mg tablet 25 mg PO QHS INSOMNIA 02/28/24 02/25/25 History ferrous sulfate 325 mg (65 mg 325 mg PO QHS ANEMIA 03/20/24 02/22/25 History iron) tablet (Feosol) levothyroxine 50 mcg tablet 50 mcg PO DAILY THYROID 03/20/24 02/26/25 History pantoprazole 20 mg tablet,delayed 20 mg PO DAILY Gerd 08/28/24 02/26/25 History release melatonin 3 mg tablet 3 mg PO QHS PRN PRN Insomnia #0 12/17/24 Unknown Rx tabs menthol 2 % topical gel (Blue Gel) 1 applic topical TID PRN PRN 12/17/24 12/27/24 Rx Arthritis Pain 1-10 #0 grams nitroglycerin 0.4 mg sublingual 0.4 mg sublingual Q5M PRN 12/17/24 Unknown Rx tablet Cardiac/Chest Pain #0 tabs loratadine 10 mg tablet (Claritin) 10 mg PO .q48 allergies 12/28/24 02/22/25 History acetaminophen 500 mg tablet 1,000 mg (2 x 500 mg) PO Q6H PRN 01/02/25 Unknown Rx PRN Pain Score 1-10 #0 tabs atorvastatin 40 mg tablet 40 mg PO QHS cholesterol #30 tabs 01/14/25 02/25/25 Rx ranolazine 500 mg tablet,extended 500 mg PO BID heart health #60 tabs 01/14/25 02/26/25 Rx release,12 hr B-complex with vitamin C 1 tab PO BID supplement 01/16/25 02/22/25 History amiodarone 100 mg tablet 100 mg PO BID heart 01/16/25 02/26/25 History apixaban 2.5 mg tablet (Eliquis) 2.5 mg PO BID blood thinner 01/16/25 02/23/25 History diltiazem HCl 120 mg 120 mg PO QAM heart 01/16/25 02/26/25 History capsule,extended release 24 hr (Cardizem CD) empagliflozin 10 mg tablet 10 mg PO QAM kidney 01/16/25 02/26/25 History (Jardiance) furosemide 40 mg tablet 40 mg PO BIDLX diuretic #60 tabs 01/16/25 02/26/25 Rx isosorbide mononitrate 30 mg 30 mg PO QAM angina 01/16/25 02/26/25 History tablet,extended release 24 hr magnesium chloride 1 tab PO DAILY supplement 01/16/25 02/26/25 History potassium chloride 20 mEq 20 meq PO BID supplement 01/16/25 02/26/25 History tablet,extended release (K-Tab) dicyclomine 20 mg tablet 20 mg PO TID PRN abdominal pain 02/23/25 Unknown Rx #20 tabs amoxicillin 500 mg-potassium 1 tab PO BID antibiotic #10 tabs 03/20/25 Unknown Rx clavulanate 125 mg tablet Allergy/AdvReac Type Severity Reaction Status Date / Time diclofenac Allergy rash Verified 03/24/25 08:40 prednisone Allergy Rash Verified 03/24/25 08:40 Family History Father Cancer Prostate cancer Mother Hypertension Sister Hypertension Surgical History Status post placement of cardiac pacemaker History of colonoscopy (03/26/24) History of back surgery History of cardiac catheterization History of esophagogastroduodenoscopy (EGD) History of cardioversion (06/18/19) History of radiofrequency ablation procedure for cardiac arrhythmia (11/11/11) History of electrophysiologic study (08/08/00) History of left heart catheterization (07/17/12) History of hemorrhoidectomy History of Zenaida fundoplication History of coronary artery stent placement (08/04/00) History of hernia repair History of back surgery Social History household members: none housing: house Smoking Status: Never smoker alcohol intake: never substance use type: does not use caffeine: No ROS ROS ED Constitutional Constitutional ED: Denies chills or fever(s) Eyes Eyes: Reports blurry vision right; Denies diplopia ENT ENT ED: Denies rhinorrhea or sore throat Cardiovascular Cardiovascular: Denies chest pain or palpitations Respiratory/Chest Respiratory/Chest: Reports dyspnea; Denies cough Gastrointestinal Gastrointestinal: Denies nausea or vomiting Genitourinary Genitourinary ED: Denies dysuria or hematuria Musculoskeletal Musculoskeletal: Denies back pain or neck pain Integumentary Denies abscess or rash Neurologic Neurologic: Reports headache(s); Denies weakness Allergic/Immunologic Allergic/Immunologic ED: Denies mouth swelling or urticaria EXAM Physical Exam Const Vital Signs: 03/24/25 08:36 03/24/25 08:36 03/24/25 08:43 Temperature 97.8 F Temperature Source Oral Pulse Rate 60 Respiratory Rate 28 H Respiratory Effort Short of Breath Respiratory Pattern Tachypnea Blood Pressure 139/67 H Blood Pressure Mean 91 Pulse Ox 89 91 Oxygen Delivery Method Nasal Cannula Nasal Cannula Nasal Cannula Oxygen Flow Rate (L/min) 6 6 6 Fraction of Inspired Oxygen (FIO2) 03/24/25 09:39 03/24/25 10:16 03/24/25 10:17 Temperature Temperature Source Pulse Rate 60 60 Respiratory Rate 30 H Respiratory Effort Respiratory Pattern Blood Pressure 152/74 H 152/74 H Blood Pressure Mean 100 Pulse Ox 91 92 Oxygen Delivery Method Nasal Cannula Nasal Cannula Oxygen Flow Rate (L/min) 6 6 Fraction of Inspired Oxygen (FIO2) 03/24/25 11:00 03/24/25 12:00 Temperature Temperature Source Pulse Rate 60 60 Respiratory Rate 25 H 21 H Respiratory Effort Respiratory Pattern Blood Pressure 130/66 H 151/72 H Blood Pressure Mean 87 98 Pulse Ox 95 94 Oxygen Delivery Method Nasal Cannula Nasal Cannula Oxygen Flow Rate (L/min) 6 Fraction of Inspired Oxygen (FIO2) 6 Positive well nourished and well developed General Appearance ED: well developed and NAD HEENT Reports moist mucous membranes atraumatic Neck supple and no JVD Resp normal respiratory effort Auscultation: diminished lung sounds bilateral Cardio regular rate and regular rhythm GI non-distended Palpation: soft and tender epigastric, LLQ, RLQ, LUQ, RUQ, periumbilical and suprapubic; Negative for guarding or rebound tenderness present Neuro oriented x3, CN's II-XII intact bilaterally and no sensory deficits noted Vasile Coma Scale: document GCS findings Spontaneous Obeys Commands Oriented 15 Sensorium / Orientation: alert Speech: speech normal Motor Exam: strength 5/5 throughout Psych Mood & Affect: anxious MDM MDM MDM Narrative Medical decision making narrative: Differential diagnosis includes pneumonia, bronchitis, congestive heart failure, pulmonary edema, acute on chronic kidney disease, cardiac dysrhythmia, cardiac ischemia, sepsis, and electrolyte abnormality. EKG will be obtained to assess for cardiac dysrhythmia and cardiac ischemia. Chest x-ray will be obtained to assess for pneumonia or bronchitis. CBC will be obtained to assess for leukocytosis and anemia. Basic metabolic profile will be obtained to assess for electrolyte abnormality and renal function. BNP will be obtained to assess for congestive heart failure. High-sensitivity troponin will be obtained to assess for cardiac ischemia. 2-hour repeat high-sensitivity troponin will be obtained to assess for ongoing cardiac ischemia. Blood cultures will be obtained to assess for sepsis. Serum lactate will be obtained to assess for sepsis. History & Record Review Additional record(s) reviewed:: Prior inpatient record, Prior ED visit and Prior labs Lab Data Attestation: I reviewed the patient's lab results. Lab results narrative: CBC was reviewed. There is a leukocytosis of 40.9. Hemoglobin was 11.0 and hematocrit was 31.7. This is consistent with previous results. Basic metabolic profile was reviewed. Sodium was slightly low at 132 and potassium was elevated at 6.0. CO2 was slightly low at 18.6. Anion gap was slightly elevated at 18. BUN was 72 and creatinine was 5.1. These are increased from previous results. Serum lactate was reviewed and was normal at 1.8. Initial high-sensitivity troponin was reviewed and was elevated at 177. 2-hour repeat high-sensitivity troponin was reviewed and was 181. 4-hour repeat high-sensitivity troponin was reviewed and was 164. Labs: Laboratory Results - last 24 hr 03/24/25 03/24/25 03/24/25 08:50 10:52 11:45 WBC 40.9 H* RBC 3.00 L Hgb 11.0 L Hct 31.7 L MCV 105.7 H MCH 36.7 H MCHC 34.7 RDW Std Deviation 60.5 H RDW Coeff of Pablo 15.7 H Plt Count 238 MPV 10.3 Immature Gran % (Auto) 3.700 H Neut % (Auto) 92.3 H Lymph % (Auto) 0.5 L [place] % (Auto) 3.2 Eos % (Auto) 0.1 Baso % (Auto) 0.2 Absolute Neuts (auto) 37.7 H Absolute Lymphs (auto) 0.19 L Nucleated RBC % 0.1 Differential Comment COMMENT Diff Path Review May foll Sodium 132 L Potassium 6.0 H* Chloride 96 L Carbon Dioxide 18.6 L Anion Gap 18 H BUN 72 H Creatinine 5.10 H Estim Creat Clear Calc 9.86 L* Est GFR (MDRD) Non-Af 11 L BUN/Creatinine Ratio 14.1 Glucose 134 H Lactic Acid Calcium 7.8 Troponin T High Sens 177 H* D Troponin T Hi Sens 2 Hr 181 H* Troponin T Hi Sens 4Hr NT pro BNP II POC Glucose 132 H 03/24/25 12:45 WBC RBC Hgb Hct MCV MCH MCHC RDW Std Deviation RDW Coeff of Pablo Plt Count MPV Immature Gran % (Auto) Neut % (Auto) Lymph % (Auto) [place] % (Auto) Eos % (Auto) Baso % (Auto) Absolute Neuts (auto) Absolute Lymphs (auto) Nucleated RBC % Differential Comment Diff Path Review Sodium Potassium Chloride Carbon Dioxide Anion Gap BUN Creatinine Estim Creat Clear Calc Est GFR (MDRD) Non-Af BUN/Creatinine Ratio Glucose Lactic Acid 1.8 Calcium Troponin T High Sens Troponin T Hi Sens 2 Hr Troponin T Hi Sens 4Hr 164 H* NT pro BNP II POC Glucose Radiography Diagnostic Testing: Clinical Impression(s) from Imaging Studies Chest X-Ray 03/24/25 09:05 IMPRESSION: Pulmonary findings as above. Possible subdiaphragmatic free air and dilated small bowel. CT abdomen pelvis is recommended. Critical results were communicated to Dr. Blake at 10:10 a.m.. Reading Location: [id number] Abdomen/Pelvis CT 03/24/25 10:16 IMPRESSION: Worsening diffuse ground-glass and confluent airspace opacities in the lower lobes consistent with CHF with pneumonia can not be excluded. Developing small-bowel loops dilation measuring up to 7 cm in diameter. The terminal ileum is decompressed. The oral contrast fills the colon. These finding can still be consistent with partial small bowel obstruction and terminal ileitis. Please correlate with history of inflammatory bowel disease. Colonic diverticulosis with no evidence of acute diverticulitis. Reading Location: [facility] KUB X-Ray 03/24/25 12:34 IMPRESSION: Small-bowel obstruction. The NG tube terminates in the stomach. Reading Location: [facility] Portable chest x-ray was obtained. There is 1 view. On my independent interpretation, there is pneumonia versus CHF. Radiologist also interpreted the x-ray and noted there is a questionable subdiaphragmatic air and dilated small bowel. He recommended CT scan of the abdomen and pelvis. CT scan of the abdomen pelvis was obtained. There is worsening diffuse groundglass opacities in the lower lobes consistent with CHF and pneumonia. There is dilation of the small bowel loops measuring up to 7 cm. The terminal ileum is decompressed. There is no free air. There is diverticulosis but no evidence of diverticulitis. This was interpreted by the radiologist was also independently reviewed by myself. KUB was obtained after insertion of NG tube. There is 1 view. On my independent interpretation, the NG tube terminates in the stomach. There is a small bowel obstruction noted. Radiologist also interpreted the x-rays and agrees. EKG Initial EKG: Attestation: I personally reviewed and interpreted this EKG as follows: Interpretation: Atrial Flutter, Paced (60) and LBBB Comments: EKG was obtained. Independently potation, shows atrial flutter with a paced ventricular rhythm. There is a left bundle branch block pattern noted. QRS interval prolonged at 164 ms. QTc interval slightly prolonged at 542 ms. There is left axis deviation -69. There are no acute ST or T wave changes noted. Prior EKG tracings: available for review Prior: Unchanged (03/18/2025) Management Discussion w/another healthcare provider: Hospitalist (Dr. Farley), Property Management Intern (Dr. Tam) and Radiologist Treatment and Re-Evaluation :: Patient was given aspirin initially. Patient was given a dose of Zosyn. Patient was given sublingual nitroglycerin. Patient was given calcium gluconate, insulin, and glucose for the hyperkalemia. Patient was advised of his findings. Patient was advised of the need for hospitalization. Patient is agreeable with this. Patient was advised of the need for NG tube placement. Patient is agreeable with this. Case was discussed with Dr. Tam. She presented to evaluate patient. She placed the NG tube. Case was discussed with Dr. Farley. She was in to evaluate the patient. She will admit the patient to ICU. Patient understood and was agreeable with the plan. All questions were answered. Critical Care Time Critical Care Time: Yes Critical care time (excluding procedures): 30-74 minutes (33), Including time spent:, Discussing w/Patient &/or Family/Gyroscopic Instrument Mechanic, Discussing w/Consultants, Arranging Admission or Transfer and Performing Direct Patient Care at Bedside Discharge Plan Dx/Rx/DC Orders Clinical Impression: Bowel obstruction, Elevated troponin, Pneumonia, Acute kidney injury superimposed on chronic kidney disease, Acute hyperkalemia Disposition Disposition: [facility] Discharge Date/Time: 03/24/25 14:01
--- NOTE | 2025-03-24 09:05 | RAD_ITS ---
PROCEDURE: CHEST 1 VIEW (PORTABLE) 03/24/2025 REASON FOR EXAM: CHEST PAIN TECHNIQUE: Frontal view of the chest. COMPARISON: 03/18/2025. FINDINGS: Worsening bibasilar consolidative opacities suspicious for aspiration/infection. Edema is possible this would be an atypical presentation. The heart is enlarged. Left chest pacemaker. Possible subdiaphragmatic free air. Probable loop of markedly dilated loop of small bowel. RAD/Chest 1 View (Portable) IMPRESSION: Pulmonary findings as above. Possible subdiaphragmatic free air and dilated small bowel. CT abdomen pelvis is recommended. Critical results were communicated to Dr. Blake at 10:10 a.m.. Reading Location: [id number]
[2025-03-24 09:20] LABS: Hematocrit 31.7 % (40-54); Hemoglobin 11.0 g/dL (13.0-16.5); Immature Granulocytes Count 1.500 X10^3/uL (0.0-0.0); Mean Corp Hgb Conc 34.7 g/dL (32-36); Mean Corpuscular Volume 105.7 fL (80-94); Mean Platelet Vol. 10.3 fl (6.2-12.0); NRBC Flagged by Analyzer 0.1 % (0-5); POSITIVE COUNT YES; POSITIVE DIFFERENTIAL YES; Platelet Count 238 K/mm3 (150-450); RBC Distribution Width CV 15.7 % (11.6-14.6); RBC Distribution Width SD 60.5 fl (35.1-43.9); Red Blood Count 3.00 M/mm3 (4.6-6.2)
[2025-03-24 09:27] LABS: Differential Indicated SCAN CRITERIA MET; White Blood Count 40.9 K/mm3 (4.4-11.0)
--- NOTE | 2025-03-24 09:27 | ED.RN ---
Critical WBC of 40.9. Dr. Blake notified.
[2025-03-24] MEDS: Nitroglycerin SL (ED/IMG/CATH) 0.4 MG TABLET SL (10:16)
--- NOTE | 2025-03-24 10:16 | CT_ITS ---
PROCEDURE: ABDOMEN/PELVIS WITHOUT CONT 03/24/2025 REASON FOR EXAM: LEUKOCYTOSIS TECHNIQUE: ABDOMEN/PELVIS WITHOUT CONT Noncontrast technique limits evaluation of the abdominal and pelvic viscera. Coronal and Sagittal reconstruction series were provided. One or more dose reduction techniques were used (e.g., Automated exposure control, adjustment of the mA and/or kV according to patient size, use of iterative reconstruction technique). RADIATION DOSE SUMMARY: CTDlvol: 6.58 mGy DLP: 328.60 mGycm COMPARISON: CT abdomen and pelvis 03/21/2025. FINDINGS: Lung bases: Moderate cardiomegaly. Atherosclerotic calcifications of the coronary arteries. Worsening diffuse ground-glass and confluent airspace opacities in the lower lobes consistent with CHF with pneumonia can not be excluded. Liver: Unremarkable. Gallbladder: The gallbladder is distended. No biliary dilation. Spleen: Unremarkable. Pancreas: Unremarkable. Adrenals: Unremarkable. Kidneys: Bilateral simple kidney cysts with the largest measures 5.7 cm at the upper pole of the left kidney. A 2 mm stone at the lower pole of the right kidney. No hydronephrosis. Bladder: The bladder is partially distended and unremarkable. Reproductive Organs: Unremarkable. Bowel: Developing small-bowel loops dilation measuring up to 7 cm in diameter. The terminal ileum is decompressed. The oral contrast fills the colon. These finding can still be consistent with partial small bowel obstruction and terminal ileitis. Colonic diverticulosis with no evidence of acute diverticulitis. Appendix: No evidence of acute appendicitis. Lymph nodes: No lymphadenopathy. Vasculature: No aneurysm. Atherosclerotic calcifications. Peritoneum / Retroperitoneum: Trace free fluid in the pelvis. No free air. Bones: Osteopenia which limits the evaluation. No acute bony abnormalities. Multiple kyphoplasties. CT/Abdomen/Pelvis without Cont IMPRESSION: Worsening diffuse ground-glass and confluent airspace opacities in the lower lo bes consistent with CHF with pneumonia can not be excluded. Developing small-bowel loops dilation measuring up to 7 cm in diameter. The te rminal ileum is decompressed. The oral contrast fills the colon. These finding can still be consistent with partial small bowel obstruction and terminal ileitis. Please correlate with history of inflammatory bowel disease. Colonic diverticulosis with no evidence of acute diverticulitis. Reading Location: [facility]
[2025-03-24 10:43] LABS: Anion Gap 18 (5-15); BUN 72 mg/dL (4-19); BUN/Creat Ratio 14.1 RATIO (10-20); Calcium,Total 7.8 mg/dL (7.6-11.0); Carbon Dioxide 18.6 mmol/L (21.0-32.0); Chloride 96 mmol/L (98-108); Estimated Creatinine Clearance 9.86 ml/min (50-250); Glucose 134 mg/dL (70-99)
[2025-03-24 11:36] LABS: Troponin T High Sens 2 HR 181 ng/L (<=22)
[2025-03-24] MEDS: Calcium Gluconate IV 3 GM in Syringe 1 EACH IV (11:46)
[2025-03-24] MEDS: Insulin Lispro 10 UNIT in Syringe 0 ML 6 UNIT IV (11:47)
[2025-03-24] MEDS: Piperacil/Tazobactam 4.5 GM in 0.9% Normal Saline (100mL MB+) 100 ML IV (11:47)
--- NOTE | 2025-03-24 12:24 | PCM.HP.STD ---
HPI - General General Date of Admission: 03/24/25 Date of Service: 03/24/25 Chief Complaint: shortness of breath HPI Narrative RICHIE HANSEN, is a 84 M with a PMH as outlined who was admitted via the ED on 03/24/2025 with a complaint of shortness of breath which had been going on for ~ 2 days. Patient was just discharged from [facility] on 03/20/2025 after being admitted for the same complaints and was diuresed with IVF, given IV solumedrol and IV antibiotics. He was discharged and sent to the TCU on oral antibiotics and lasix. He said his shortness of breath however worsened in the TCU so he was brought back to the ED. he admitted to feeling more short of breath and also complained of abdominal pain. He had been started on Zosyn in the TCU after he had a CT abdomen and pelvis on 03/21/2025 which showed wall thickening and lack of haustral markings of the terminal ileum, ascending and transverse colon most compatible with enteritis. However, his shortness of breath persisted so he was brought in to the ED. Vitals in the ED were blood pressure of 151/72, pulse rate of 60, respirate rate of 21 and oxygen saturation of 94% on 6 L of oxygen. He usually wore 2 L of oxygen which is what he was on when he was discharged on 03/20/2025. CBC showed hemoglobin of 11 with WBC of 40.9 and platelets of 238. Chemistry showed sodium of 132 with potassium of 6 though sample was hemolyzed. Bicarb was 18.6 and anion gap was 18. Creatinine was up to 5.10 with his baseline creatinine being around 2.5. Initial troponin was 177 and trended up to 181. CT abdomen and pelvis done today showed worsening diffuse groundglass and confluent airspace diseases in the lower lobes consistent with CHF with pneumonia not being excluded and also developing small bowel loop dilatation measuring up to 7 cm in diameter with the terminal ileum being decompressed and oral contrast filling the colon findings could be consistent with partial small bowel obstruction and terminal ileitis. He has been admitted to be managed for acute on chronic hypoxic respiratory failure due to worsening pneumonia as well as partial small bowel obstruction and hypokalemia as well as FE on CKD. [facility] Medical History CKD (chronic kidney disease) stage 4, GFR 15-29 ml/min Elevated troponin COPD (chronic obstructive pulmonary disease) Iron deficiency anemia Acute kidney injury Abnormal CT scan, gastrointestinal tract Angiodysplasia of stomach Acute respiratory failure Bright red blood per rectum History of atrial fibrillation Chronic kidney disease Acute lower GI bleeding Atrial fibrillation Bradycardia Acute on chronic heart failure with reduced ejection fraction and diastolic dysfunction Pulmonary hypertension Combined systolic and diastolic congestive heart failure Coronary artery disease 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 Complete heart 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 Intermittent complete heart block History of atrial fibrillation COPD (chronic obstructive pulmonary disease) with emphysema CHF (congestive heart failure) Hypoxia Chronic kidney disease Chronic anticoagulation Acute dyspnea Hypotension Abnormal abdominal ultrasound Persistent atrial fibrillation Hearing loss, left Hearing loss, right Anxiety Chronic pain Rheumatoid arthritis Irregular heart beat Hypertension Hypothyroidism Hiatal hernia Acute constipation Acute exacerbation of chronic low back pain Wears glasses Thyroid disease Ambulates with cane Arthritis History of renal disease Anemia High cholesterol Easy bruising Excessive bleeding History of leukemia Back pain Difficulty chewing History of diverticulitis Gastric reflux Sleep apnea History of pain when walking History of edema History of echocardiogram History of stress test Cardiology follow-up encounter History of heart attack Nausea and vomiting Chronic anemia Diarrhea Colitis Sleep apnea Acute kidney injury superimposed on chronic kidney disease On amiodarone therapy Elevated LFTs Thoracic aortic aneurysm (TAA) Chronic heart failure with preserved ejection fraction (HFpEF) Nonrheumatic mitral (valve) insufficiency Atypical atrial flutter (12/2020) Elevated liver enzymes Debility Dysphagia Osteoarthritis History of colon polyps Cancer Kidney stones Kidney disease Non-smoker CPAP (continuous positive airway pressure) dependence Atrial fibrillation Myocardial infarct Chronic renal insufficiency Acute gastrointestinal bleeding Chronic kidney disease Benign prostatic hyperplasia Stage 3b chronic kidney disease GI bleed (2012) Non-rheumatic tricuspid valve insufficiency Secondary pulmonary arterial hypertension Essential (primary) hypertension BPH (benign prostatic hyperplasia) History of hyperthyroidism Paroxysmal atrial fibrillation 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 heart disease of [place] coronary artery without angina pectoris HLD (hyperlipidemia) Home Medications ?Medication ?Instructions ?Recorded ?Last Taken ?Type tamsulosin 0.4 mg capsule 0.4 mg PO BID PROSTATE 11/18/21 02/26/25 History ascorbic acid (vitamin C) 500 mg 500 mg PO BID SUPPLEMENT 07/20/22 02/26/25 History tablet finasteride 5 mg tablet 5 mg PO DAILY PROSTATE 08/05/22 02/26/25 History cholecalciferol (vitamin D3) 25 1,000 unit PO QHS SUPPLEMENT 02/19/23 02/22/25 History mcg (1,000 unit) capsule (Vitamin D3) trazodone 50 mg tablet 25 mg PO QHS INSOMNIA 02/28/24 02/25/25 History ferrous sulfate 325 mg (65 mg 325 mg PO QHS ANEMIA 03/20/24 02/22/25 History iron) tablet (Feosol) levothyroxine 50 mcg tablet 50 mcg PO DAILY THYROID 03/20/24 02/26/25 History pantoprazole 20 mg tablet,delayed 20 mg PO DAILY Gerd 08/28/24 02/26/25 History release melatonin 3 mg tablet 3 mg PO QHS PRN PRN Insomnia #0 12/17/24 Unknown Rx tabs menthol 2 % topical gel (Blue Gel) 1 applic topical TID PRN PRN 12/17/24 12/27/24 Rx Arthritis Pain 1-10 #0 grams nitroglycerin 0.4 mg sublingual 0.4 mg sublingual Q5M PRN 12/17/24 Unknown Rx tablet Cardiac/Chest Pain #0 tabs loratadine 10 mg tablet (Claritin) 10 mg PO .q48 allergies 12/28/24 02/22/25 History acetaminophen 500 mg tablet 1,000 mg (2 x 500 mg) PO Q6H PRN 01/02/25 Unknown Rx PRN Pain Score 1-10 #0 tabs atorvastatin 40 mg tablet 40 mg PO QHS cholesterol #30 tabs 01/14/25 02/25/25 Rx ranolazine 500 mg tablet,extended 500 mg PO BID heart health #60 tabs 01/14/25 02/26/25 Rx release,12 hr B-complex with vitamin C 1 tab PO BID supplement 01/16/25 02/22/25 History amiodarone 100 mg tablet 100 mg PO BID heart 01/16/25 02/26/25 History apixaban 2.5 mg tablet (Eliquis) 2.5 mg PO BID blood thinner 01/16/25 02/23/25 History diltiazem HCl 120 mg 120 mg PO QAM heart 01/16/25 02/26/25 History capsule,extended release 24 hr (Cardizem CD) empagliflozin 10 mg tablet 10 mg PO QAM kidney 01/16/25 02/26/25 History (Jardiance) furosemide 40 mg tablet 40 mg PO BIDLX diuretic #60 tabs 01/16/25 02/26/25 Rx isosorbide mononitrate 30 mg 30 mg PO QAM angina 01/16/25 02/26/25 History tablet,extended release 24 hr magnesium chloride 1 tab PO DAILY supplement 01/16/25 02/26/25 History potassium chloride 20 mEq 20 meq PO BID supplement 01/16/25 02/26/25 History tablet,extended release (K-Tab) dicyclomine 20 mg tablet 20 mg PO TID PRN abdominal pain 02/23/25 Unknown Rx #20 tabs amoxicillin 500 mg-potassium 1 tab PO BID antibiotic #10 tabs 03/20/25 Unknown Rx clavulanate 125 mg tablet Allergy/AdvReac Type Severity Reaction Status Date / Time diclofenac Allergy rash Verified 03/24/25 08:40 prednisone Allergy Rash Verified 03/24/25 08:40 Family History Father Cancer Prostate cancer Mother Hypertension Sister Hypertension Surgical History Status post placement of cardiac pacemaker History of colonoscopy (03/26/24) History of back surgery History of cardiac catheterization History of esophagogastroduodenoscopy (EGD) History of cardioversion (06/18/19) History of radiofrequency ablation procedure for cardiac arrhythmia (11/11/11) History of electrophysiologic study (08/08/00) History of left heart catheterization (07/17/12) History of hemorrhoidectomy History of Zenaida fundoplication History of coronary artery stent placement (08/04/00) History of hernia repair History of back surgery Social History household members: none housing: house Smoking Status: Never smoker alcohol intake: never substance use type: does not use caffeine: No ROS Constitutional Constitutional: Reports fatigue, malaise and weakness; Denies anorexia, chills or fever(s) Eyes Eyes: Denies change in vision ENT HEENT: Denies dysphagia, headache(s) or sore throat Cardiovascular Cardiovascular: Reports dyspnea on exertion and orthopnea; Denies edema, lightheadedness, palpitations or rapid heart rate Respiratory/Chest Respiratory/Chest: Reports cough, dyspnea, shortness of breath at rest and shortness of breath with exertion Gastrointestinal Gastrointestinal: Denies constipation, diarrhea, nausea or vomiting Genitourinary Genitourinary: Denies burning urination, dysuria or hematuria Neurologic Neurologic: Denies dizziness, focal weakness or headache(s) Psychiatric Psychiatric: Denies anxiety or depression Vital Signs Vital Signs Vital Signs: 03/24/25 08:36 03/24/25 08:36 03/24/25 08:43 Temperature 97.8 F Temperature Source Oral Pulse Rate 60 Respiratory Rate 28 H Respiratory Effort Short of Breath Respiratory Pattern Tachypnea Blood Pressure 139/67 H Blood Pressure Mean 91 Pulse Ox 89 91 Oxygen Delivery Method Nasal Cannula Nasal Cannula Nasal Cannula Oxygen Flow Rate (L/min) 6 6 6 Fraction of Inspired Oxygen (FIO2) 03/24/25 09:39 03/24/25 10:16 03/24/25 10:17 Temperature Temperature Source Pulse Rate 60 60 Respiratory Rate 30 H Respiratory Effort Respiratory Pattern Blood Pressure 152/74 H 152/74 H Blood Pressure Mean 100 Pulse Ox 91 92 Oxygen Delivery Method Nasal Cannula Nasal Cannula Oxygen Flow Rate (L/min) 6 6 Fraction of Inspired Oxygen (FIO2) 03/24/25 11:00 03/24/25 12:00 Temperature Temperature Source Pulse Rate 60 60 Respiratory Rate 25 H 21 H Respiratory Effort Respiratory Pattern Blood Pressure 130/66 H 151/72 H Blood Pressure Mean 87 98 Pulse Ox 95 94 Oxygen Delivery Method Nasal Cannula Nasal Cannula Oxygen Flow Rate (L/min) 6 Fraction of Inspired Oxygen (FIO2) 6 Weight Weight: 139 lb 15.896 oz Body Mass Index (BMI) 21.2 Physical Exam Const alert and oriented x3 Constitutional Narrative: very frail and weak. General Appearance: cooperative HEENT normocephalic, head/scalp atraumatic, moist oral mucous membranes and oropharynx normal Neck supple and no JVD Cardio regular rhythm, S1 normal heart sound, S2 normal heart sound and no murmurs GI normal to inspection, nondistended, normoactive bowel sounds, soft to palpation and non-distended GI Narrative: moderate generalised tenderness, no guarding or rebound tenderness. Extremity normal to inspection, full ROM and no clubbing, cyanosis or edema Neuro oriented x3, moves all extremities and no focal motor deficits Neuro Narrative: frail and weak Psych affect normal Results Lab / Micro Data 03/24/25 08:50 03/24/25 08:50 Labs: Laboratory Results - last 24 hr 03/24/25 08:50: WBC 40.9 H*, RBC 3.00 L, Hgb 11.0 L, Hct 31.7 L, MCV 105.7 H, MCH 36.7 H, MCHC 34.7, RDW Std Deviation 60.5 H, RDW Coeff of Pablo 15.7 H, Plt Count 238, MPV 10.3, Immature Gran % (Auto) 3.700 H, Neut % (Auto) 92.3 H, Lymph % (Auto) 0.5 L, Walker % (Auto) 3.2, Eos % (Auto) 0.1, Baso % (Auto) 0.2, Absolute Neuts (auto) 37.7 H, Absolute Lymphs (auto) 0.19 L, Nucleated RBC % 0.1, Differential Comment COMMENT, Diff Path Review December foll, Sodium 132 L, Potassium 6.0 H*, Chloride 96 L, Carbon Dioxide 18.6 L, Anion Gap 18 H, BUN 72 H, Creatinine 5.10 H, Estim Creat Clear Calc 9.86 L*, Est GFR (MDRD) Non-Af 11 L, BUN/Creatinine Ratio 14.1, Glucose 134 H, Calcium 7.8, Troponin T High Sens 177 H* D, NT pro BNP II 03/24/25 10:52: Troponin T Hi Sens 2 Hr 181 H* 03/24/25 11:45: POC Glucose 132 H Imaging Radiology Impression Chest X-Ray 03/24/25 09:05 IMPRESSION: Pulmonary findings as above. Possible subdiaphragmatic free air and dilated small bowel. CT abdomen pelvis is recommended. Critical results were communicated to Dr. Blake at 10:10 a.m.. Reading Location: [facility] Abdomen/Pelvis CT 03/24/25 10:16 IMPRESSION: Worsening diffuse ground-glass and confluent airspace opacities in the lower lobes consistent with CHF with pneumonia can not be excluded. Developing small-bowel loops dilation measuring up to 7 cm in diameter. The terminal ileum is decompressed. The oral contrast fills the colon. These finding can still be consistent with partial small bowel obstruction and terminal ileitis. Please correlate with history of inflammatory bowel disease. Colonic diverticulosis with no evidence of acute diverticulitis. Reading Location: [facility] Assessment & Plan Assessment/Plan (1) Bowel obstruction: (2) Pneumonia: QUALIFIERS: Pneumonia type: due to unspecified organism Laterality: unspecified laterality Lung location: unspecified part of lung Qualified Code(s): J18.9 - Pneumonia, unspecified organism (3) Acute hypoxemic respiratory failure: PLAN: Plan #Acute on chronic hypoxic respiratory failure due to worsening bilateral pneumonia. Admitted from TCU with a complaint of worsening shortness of breath. He is now on 6 L though his baseline is 2 L. He was recently admitted and discharged 4 days ago for the same symptoms. His white cell count is up to 40.9 and chest x-ray today shows worsening bibasilar consolidative opacities suspicious for aspiration versus infection and edema is possible though this would be an atypical presentation. CT of the abdomen and pelvis done today showed worsening diffuse groundglass and confluent airspace opacities in the lower lobes consistent with CHF with pneumonia not being excluded. Admitted to the ICU. He was recently on IV Zosyn so we will broaden to IV meropenem. Titrate oxygen to maintain saturation above 90%. Will hold off on diuresis as this can creatinine is up to over 5 now. Hydrate very gently with IV fluids. Critical care consulted. Breathing treatments bronchodilators. Titrate oxygen to maintain saturation above 90%. consult ID also in light of elevated wbc of 40.9 #Partial small bowel obstruction CT of the abdomen and pelvis showed developing small bowel loop dilatation measuring up to 7 cm in diameter with all contrast within the colon and these findings could be consistent with partial small bowel obstruction and terminal ileitis at the terminal ileum with decompressed. General surgery on board. His WBC is up to 40. IV meropenem started as above. NG tube inserted as per general surgery. Patient kept n.p.o. and being hydrated gently with IV normal saline 75 cc/h as above. Patient counseled that he is a very high surgical risk just in case surgery is needed. #FE on CKD IV with hyperkalemia Potassium is 6. Creatinine is 5.1 baseline being around 2.5. His creatinine just yesterday was 3.88. Will consult nephrology regarding following him in the TCU also Been gently hydrated with IV fluids as above. Will give Kayexalate x 1. Potassium was hemolyzed also it may actually be lower. Lactic acid was only 1.8. #Anion gap metabolic acidosis: Likely due to uremia. Lactic acid is only 1.8. Anion gap is 18. Creatinine is 5.1. Should improve as kidney function improves. #Elevated troponins: Initial troponin was 177 and trended up to 181 but subsequently trended down to 164. This may be due to troponin leak from hypoxia. Last 2D echo from 12/09/2024 showed EF of 60% and normal left ventricular size and systolic function with moderately severe 3+ tricuspid valve insufficiency. Is worsening FE on CKD with creatinine up to 5 may also be playing a role. He denies any chest pain now. Will hold off on any further workup for now. EKG showed a paced rhythm. If he develops any chest pain or symptoms persist and worsen we will consult cardiology and do further workup. #CAD s/p stents: On high intensity statin as well as Imdur and ranolazine #History of paroxysmal A-fib: On amiodarone and Cardizem as well as Eliquis #History of third-degree heart block: Status post pacemaker #Hyperlipidemia: On statin #Hypothyroidism: On Synthroid #Depression: On trazodone DVT prophylaxis: on eliquis CODE STATUS: DNR CCA with intubation Patient counseled extensively about different types of CODE STATUS including full code, DNR CCA and DNR CCA. Patient elects to be DNRCCA no intubation. Total [id number] time 17 minutes. Charges/Coding Visit Charges Inpatient E&M: 11986 Init Hosp L3 Procedures Hospitalists Procedures: 62081 Advncd Care Plan 30 Min
--- NOTE | 2025-03-24 12:34 | RAD_ITS ---
PROCEDURE: ABDOMEN SINGLE VIEW (PORTABLE) 03/24/2025 REASON FOR EXAM: NG INSERTION TECHNIQUE: ABDOMEN SINGLE VIEW (PORTABLE) COMPARISON: Abdominal x-ray 03/24/2025 FINDINGS: Bowel gas: Diffusely dilated small bowel loops consistent with bowel obstruction. No free air. Calcifications: No abnormal calcifications. Bones: No acute bony abnormalities.Status post kyphoplasty of the spine. Other: The NG tube terminates in the stomach. A left-sided pacemaker in place. RAD/Abdomen Single View (Portable) IMPRESSION: Small-bowel obstruction. The NG tube terminates in the stomach. Reading Location: [id number]
[2025-03-24] MEDS: Oxymetazoline 0.05% 1 SPRAY SPRAY.BTL 2 SPRAY NASAL (12:50)
[2025-03-24] MEDS: Lidocaine 5% 35GM Tube 1 APPLIC TOPICAL (12:50)
[2025-03-24 13:11] LABS: Troponin T High Sens 4 HR 164 ng/L (<=22)
--- NOTE | 2025-03-24 13:24 | EX.PCM.CON.S ---
Assessment & Plan Assessment/Plan (1) Bowel obstruction: (2) Acute and chronic respiratory failure with hypoxia: (3) Pneumonia: QUALIFIERS: Laterality: unspecified laterality Lung location: unspecified part of lung Pneumonia type: due to unspecified organism Qualified Code(s): J18.9 - Pneumonia, unspecified organism (4) Elevated troponin: (5) Chronic anticoagulation: (6) Acute on chronic heart failure with preserved ejection fraction (HFpEF): PLAN: Plan Discussed with patient that currently he would be at high risk for surgery given his cardiac and respiratory issues. Patient had a CT scan 3 days ago did not show any evidence of bowel obstruction the contrast had immediate to the colon and rectum today but there is new dilatation of the small bowel. Discussed with patient that if he were to need surgery and would want surgery would recommend tertiary care center. Patient currently agreeable with no surgery and conservative treatment with NG. NG was placed thick drainage about 600 cc was obtained initially. Will continue to follow we will get a KUB in the a.m. Patient admitted to medicine placed in ICU, broad spectrum IV antibiotics per medicine. CODE STATUS DNR okay for intubation discussed with patient. Addendum: Rapid response was called however patient was found to be in PEA and patient passed yesterday?please see summary Sarika Tam M.D. Pager: [phone] [facility] [address] [place] [address], [address] [place] [address] Office: [phone] HPI Consult Data Date of Consult: 03/25/25 HPI Narrative Reason for Consultation: Bowel obstruction HPI Narrative: RICHIE HANSEN, is a 84 M who presents to the ER from TCU due to shortness of breath. Chest x-ray showed dilated loops of bowel CT abdomen pelvis showed dilated small bowel proximally measuring 7 cm. P.o. contrast made to the colon patient previously had a CT abdomen pelvis 03/21/2025 with oral contrast in the small bowel no signs of obstruction at that time. Patient also recently had a small bowel follow-through at the end of January which was normal. Patient states he had decreased appetite. Patient is abdominal surgery included laparoscopic Zenaida, inguinal hernia repair. Patient's past medical history also includes chronic kidney disease with new acute kidney injury, CAD/CHF on Eliquis?last BNP 34,000 (03/18/2025); elevated troponin 177, 181, 164. Patient's last echo was in November 2024 showed left ventricular ejection fraction 60%, left atrium severely enlarged, moderate to severe 3+ tricuspid valve insufficiency, severe pulmonary hypertension patient reports counts 40 from 14.5 03/21/2025, lactic acid 1.8 today. Patient has been [id number] between the hospital and the TCU on Zosyn for pneumonia over the last month. Currently patient is on 6 L nasal cannula. Does have abdominal pain with palpation. Patient denies any bowel movements in the last couple days. [facility] Medical History CKD (chronic kidney disease) stage 4, GFR 15-29 ml/min Elevated troponin COPD (chronic obstructive pulmonary disease) Iron deficiency anemia Acute kidney injury Abnormal CT scan, gastrointestinal tract Angiodysplasia of stomach Acute respiratory failure Bright red blood per rectum History of atrial fibrillation Chronic kidney disease Acute lower GI bleeding Atrial fibrillation Bradycardia Acute on chronic heart failure with reduced ejection fraction and diastolic dysfunction Pulmonary hypertension Combined systolic and diastolic congestive heart failure Coronary artery disease 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 Complete heart 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 Intermittent complete heart block History of atrial fibrillation COPD (chronic obstructive pulmonary disease) with emphysema CHF (congestive heart failure) Hypoxia Chronic kidney disease Chronic anticoagulation Acute dyspnea Hypotension Abnormal abdominal ultrasound Persistent atrial fibrillation Hearing loss, left Hearing loss, right Anxiety Chronic pain Rheumatoid arthritis Irregular heart beat Hypertension Hypothyroidism Hiatal hernia Acute constipation Acute exacerbation of chronic low back pain Wears glasses Thyroid disease Ambulates with cane Arthritis History of renal disease Anemia High cholesterol Easy bruising Excessive bleeding History of leukemia Back pain Difficulty chewing History of diverticulitis Gastric reflux Sleep apnea History of pain when walking History of edema History of echocardiogram History of stress test Cardiology follow-up encounter History of heart attack Nausea and vomiting Chronic anemia Diarrhea Colitis Sleep apnea Acute kidney injury superimposed on chronic kidney disease On amiodarone therapy Elevated LFTs Thoracic aortic aneurysm (TAA) Chronic heart failure with preserved ejection fraction (HFpEF) Nonrheumatic mitral (valve) insufficiency Atypical atrial flutter (12/2020) Elevated liver enzymes Debility Dysphagia Osteoarthritis History of colon polyps Cancer Kidney stones Kidney disease Non-smoker CPAP (continuous positive airway pressure) dependence Atrial fibrillation Myocardial infarct Chronic renal insufficiency Acute gastrointestinal bleeding Chronic kidney disease Benign prostatic hyperplasia Stage 3b chronic kidney disease GI bleed (2012) Non-rheumatic tricuspid valve insufficiency Secondary pulmonary arterial hypertension Essential (primary) hypertension BPH (benign prostatic hyperplasia) History of hyperthyroidism Paroxysmal atrial fibrillation 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 heart disease of [place] coronary artery without angina pectoris HLD (hyperlipidemia) Home Medications ?Medication ?Instructions ?Recorded ?Last Taken ?Type tamsulosin 0.4 mg capsule 0.4 mg PO BID PROSTATE 11/18/21 02/26/25 History ascorbic acid (vitamin C) 500 mg 500 mg PO BID SUPPLEMENT 07/20/22 02/26/25 History tablet finasteride 5 mg tablet 5 mg PO DAILY PROSTATE 08/05/22 02/26/25 History cholecalciferol (vitamin D3) 25 1,000 unit PO QHS SUPPLEMENT 02/19/23 02/22/25 History mcg (1,000 unit) capsule (Vitamin D3) trazodone 50 mg tablet 25 mg PO QHS INSOMNIA 02/28/24 02/25/25 History ferrous sulfate 325 mg (65 mg 325 mg PO QHS ANEMIA 03/20/24 02/22/25 History iron) tablet (Feosol) levothyroxine 50 mcg tablet 50 mcg PO DAILY THYROID 03/20/24 02/26/25 History pantoprazole 20 mg tablet,delayed 20 mg PO DAILY Gerd 08/28/24 02/26/25 History release melatonin 3 mg tablet 3 mg PO QHS PRN PRN Insomnia #0 12/17/24 Unknown Rx tabs menthol 2 % topical gel (Blue Gel) 1 applic topical TID PRN PRN 12/17/24 12/27/24 Rx Arthritis Pain 1-10 #0 grams nitroglycerin 0.4 mg sublingual 0.4 mg sublingual Q5M PRN 12/17/24 Unknown Rx tablet Cardiac/Chest Pain #0 tabs loratadine 10 mg tablet (Claritin) 10 mg PO .q48 allergies 12/28/24 02/22/25 History acetaminophen 500 mg tablet 1,000 mg (2 x 500 mg) PO Q6H PRN 01/02/25 Unknown Rx PRN Pain Score 1-10 #0 tabs atorvastatin 40 mg tablet 40 mg PO QHS cholesterol #30 tabs 01/14/25 02/25/25 Rx ranolazine 500 mg tablet,extended 500 mg PO BID heart health #60 tabs 01/14/25 02/26/25 Rx release,12 hr B-complex with vitamin C 1 tab PO BID supplement 01/16/25 02/22/25 History amiodarone 100 mg tablet 100 mg PO BID heart 01/16/25 02/26/25 History apixaban 2.5 mg tablet (Eliquis) 2.5 mg PO BID blood thinner 01/16/25 02/23/25 History diltiazem HCl 120 mg 120 mg PO QAM heart 01/16/25 02/26/25 History capsule,extended release 24 hr (Cardizem CD) empagliflozin 10 mg tablet 10 mg PO QAM kidney 01/16/25 02/26/25 History (Jardiance) furosemide 40 mg tablet 40 mg PO BIDLX diuretic #60 tabs 01/16/25 02/26/25 Rx isosorbide mononitrate 30 mg 30 mg PO QAM angina 01/16/25 02/26/25 History tablet,extended release 24 hr magnesium chloride 1 tab PO DAILY supplement 01/16/25 02/26/25 History potassium chloride 20 mEq 20 meq PO BID supplement 01/16/25 02/26/25 History tablet,extended release (K-Tab) dicyclomine 20 mg tablet 20 mg PO TID PRN abdominal pain 02/23/25 Unknown Rx #20 tabs amoxicillin 500 mg-potassium 1 tab PO BID antibiotic #10 tabs 03/20/25 Unknown Rx clavulanate 125 mg tablet Allergy/AdvReac Type Severity Reaction Status Date / Time diclofenac Allergy rash Verified 03/24/25 08:40 prednisone Allergy Rash Verified 03/24/25 08:40 Family History Father Cancer Prostate cancer Mother Hypertension Sister Hypertension Surgical History Status post placement of cardiac pacemaker History of colonoscopy (03/26/24) History of back surgery History of cardiac catheterization History of esophagogastroduodenoscopy (EGD) History of cardioversion (06/18/19) History of radiofrequency ablation procedure for cardiac arrhythmia (11/11/11) History of electrophysiologic study (08/08/00) History of left heart catheterization (07/17/12) History of hemorrhoidectomy History of Zenaida fundoplication History of coronary artery stent placement (08/04/00) History of hernia repair History of back surgery Social History household members: none housing: house Smoking Status: Never smoker alcohol intake: never substance use type: does not use caffeine: No Physical Exam Const alert and oriented x3 General Appearance: ill appearing and frail HEENT head/scalp atraumatic Cardio Rate: regular rate GI GI Narrative: Diffusely tender, no guarding or rebound Inspection: abdominal distention Lab / Micro Data 03/24/25 08:50 03/24/25 08:50 Labs: Laboratory Results - last 24 hr 03/24/25 08:50: WBC 40.9 H*, RBC 3.00 L, Hgb 11.0 L, Hct 31.7 L, MCV 105.7 H, MCH 36.7 H, MCHC 34.7, RDW Std Deviation 60.5 H, RDW Coeff of Pablo 15.7 H, Plt Count 238, MPV 10.3, Immature Gran % (Auto) 3.700 H, Neut % (Auto) 92.3 H, Lymph % (Auto) 0.5 L, Porter % (Auto) 3.2, Eos % (Auto) 0.1, Baso % (Auto) 0.2, Absolute Neuts (auto) 37.7 H, Absolute Lymphs (auto) 0.19 L, Nucleated RBC % 0.1, Differential Comment COMMENT, Diff Path Review December, Sodium 132 L, Potassium 6.0 H*, Chloride 96 L, Carbon Dioxide 18.6 L, Anion Gap 18 H, BUN 72 H, Creatinine 5.10 H, Estim Creat Clear Calc 9.86 L*, Est GFR (MDRD) Non-Af 11 L, BUN/Creatinine Ratio 14.1, Glucose 134 H, Calcium 7.8, Troponin T High Sens 177 H* D, NT pro BNP II 03/24/25 10:52: Troponin T Hi Sens 2 Hr 181 H* 03/24/25 11:45: POC Glucose 132 H 03/24/25 12:45: Lactic Acid 1.8, Troponin T Hi Sens 4Hr 164 H* Imaging Radiology Impression Chest X-Ray 03/24/25 09:05 IMPRESSION: Pulmonary findings as above. Possible subdiaphragmatic free air and dilated small bowel. CT abdomen pelvis is recommended. Critical results were communicated to Dr. Blake at 10:10 a.m.. Reading Location: [id number] Abdomen/Pelvis CT 03/24/25 10:16 IMPRESSION: Worsening diffuse ground-glass and confluent airspace opacities in the lower lobes consistent with CHF with pneumonia can not be excluded. Developing small-bowel loops dilation measuring up to 7 cm in diameter. The terminal ileum is decompressed. The oral contrast fills the colon. These finding can still be consistent with partial small bowel obstruction and terminal ileitis. Please correlate with history of inflammatory bowel disease. Colonic diverticulosis with no evidence of acute diverticulitis. Reading Location: [id number] Charges/Coding Visit Charges Inpatient E&M: 81421 Init Hosp L3 Multi Select Codes Visit Charges Visit Charges: 27656 Init Hosp L3
--- NOTE | 2025-03-24 13:40 | CM.ED ---
Social Work Date of referral: 03/24/25 Reason for referral: Re-admission Referred by: Social Work identification. Timber Sizer Operator attempted to meet with patient to see how he is feeling and to offer support for re-admission and patient unable to talk due to current breathing treatment. Patient looked extremely fatigued and uncomfortable due to current conditions. Patient was alone and high school social science teacher did not attempt to re-engage with patient and instead left so patient could rest until moved to an acute floor. Dior Navarro, EDITOR NEWSPAPER, [employer]
[2025-03-24] MEDS: 0.9% Normal Saline (1000mL) 1,000 ML 75 ML IV (14:23)
[2025-03-24] MEDS: Meropenem 1 GM in 0.9% Normal Saline (100mL MB+) 100 ML IV (14:40)
--- NOTE | 2025-03-24 15:49 | CON.PCM.CC_ITS ---
HPI Consult Data Date of Consult: 03/24/25 HPI Narrative Reason for Consultation: hypoxia HPI Narrative: RICHIE HANSEN, is a 84 M transferred from Rehab with increased respiratory distress and suspicion of bowel obstruction. He did not have documented vomiting event though aspiration is mentioned by the radiologist as possible explanation for his new pulmonary infiltrates. He states he is dyspneic currently and was noted to be in some degree of respiratory distress by ICU staff therefore I was summoned to see him urgently and decide on whether or not intubation would be needed immediately. [facility] Medical History CKD (chronic kidney disease) stage 4, GFR 15-29 ml/min Elevated troponin COPD (chronic obstructive pulmonary disease) Iron deficiency anemia Acute kidney injury Abnormal CT scan, gastrointestinal tract Angiodysplasia of stomach Acute respiratory failure Bright red blood per rectum History of atrial fibrillation Chronic kidney disease Acute lower GI bleeding Atrial fibrillation Bradycardia Acute on chronic heart failure with reduced ejection fraction and diastolic dysfunction Pulmonary hypertension Combined systolic and diastolic congestive heart failure Coronary artery disease 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 Complete heart 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 Intermittent complete heart block History of atrial fibrillation COPD (chronic obstructive pulmonary disease) with emphysema CHF (congestive heart failure) Hypoxia Chronic kidney disease Chronic anticoagulation Acute dyspnea Hypotension Abnormal abdominal ultrasound Persistent atrial fibrillation Hearing loss, left Hearing loss, right Anxiety Chronic pain Rheumatoid arthritis Irregular heart beat Hypertension Hypothyroidism Hiatal hernia Acute constipation Acute exacerbation of chronic low back pain Wears glasses Thyroid disease Ambulates with cane Arthritis History of renal disease Anemia High cholesterol Easy bruising Excessive bleeding History of leukemia Back pain Difficulty chewing History of diverticulitis Gastric reflux Sleep apnea History of pain when walking History of edema History of echocardiogram History of stress test Cardiology follow-up encounter History of heart attack Nausea and vomiting Chronic anemia Diarrhea Colitis Sleep apnea Acute kidney injury superimposed on chronic kidney disease On amiodarone therapy Elevated LFTs Thoracic aortic aneurysm (TAA) Chronic heart failure with preserved ejection fraction (HFpEF) Nonrheumatic mitral (valve) insufficiency Atypical atrial flutter (12/2020) Elevated liver enzymes Debility Dysphagia Osteoarthritis History of colon polyps Cancer Kidney stones Kidney disease Non-smoker CPAP (continuous positive airway pressure) dependence Atrial fibrillation Myocardial infarct Chronic renal insufficiency Acute gastrointestinal bleeding Chronic kidney disease Benign prostatic hyperplasia Stage 3b chronic kidney disease GI bleed (2012) Non-rheumatic tricuspid valve insufficiency Secondary pulmonary arterial hypertension Essential (primary) hypertension BPH (benign prostatic hyperplasia) History of hyperthyroidism Paroxysmal atrial fibrillation 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 heart disease of [place] coronary artery without angina pectoris HLD (hyperlipidemia) Home Medications ?Medication ?Instructions ?Recorded ?Last Taken ?Type tamsulosin 0.4 mg capsule 0.4 mg PO BID PROSTATE 11/1802/26/25 History ascorbic acid (vitamin C) 500 mg 500 mg PO BID SUPPLEM ENT 07/20/22 02/26/25 History tablet finasteride 5 mg tablet 5 mg PO DAILY PROSTATE 08/0502/26/25 History cholecalciferol (vitamin D3) 25 1,000 unit PO QHS SUPP LEMENT 02/19/23 02/22/25 History mcg (1,000 unit) capsule (Vitamin D3) trazodone 50 mg tablet 25 mg PO QHS INSOMNIA 02/25/25 History ferrous sulfate 325 mg (65 mg 325 mg PO QHS ANEMIA 02/22/25 History iron) tablet (Feosol) levothyroxine 50 mcg tablet 50 mcg PO DAILY THYROID 02/26/25 History pantoprazole 20 mg tablet,delayed 20 mg PO DAILY Gerd 08/28/24 02/26/25 History release melatonin 3 mg tablet 3 mg PO QHS PRN PRN Insomnia #0 12/17/24 Unknown Rx tabs menthol 2 % topical gel (Blue Gel) 1 applic topical TI D PRN PRN 12/17/24 12/27/24 Rx Arthritis Pain 1-10 #0 grams nitroglycerin 0.4 mg sublingual 0.4 mg sublingual Q5M PRN 12/17/24 Unknown Rx tablet Cardiac/Chest Pain #0 tabs loratadine 10 mg tablet (Claritin) 10 mg PO .q48 aller gies 12/28/24 02/22/25 History acetaminophen 500 mg tablet 1,000 mg (2 x 500 mg) PO Q 6H PRN 01/02/25 Unknown Rx PRN Pain Score 1-10 #0 tabs atorvastatin 40 mg tablet 40 mg PO QHS cholesterol #30 tabs 01/14/25 02/25/25 Rx ranolazine 500 mg tablet,extended 500 mg PO BID heart health #60 tabs 01/14/25 02/26/25 Rx release,12 hr B-complex with vitamin C 1 tab PO BID supplement 12/2802/22/25 History amiodarone 100 mg tablet 100 mg PO BID heart 01/16/25 02/26/25 History apixaban 2.5 mg tablet (Eliquis) 2.5 mg PO BID blood t hinner 01/16/25 02/23/25 History diltiazem HCl 120 mg 120 mg PO QAM heart 01/16/25 02/26/25 History capsule,extended release 24 hr (Cardizem CD) empagliflozin 10 mg tablet 10 mg PO QAM kidney 5 02/26/25 History (Jardiance) furosemide 40 mg tablet 40 mg PO BIDLX diuretic #60 tabs 01/16/25 02/26/25 Rx isosorbide mononitrate 30 mg 30 mg PO QAM angina 01/1602/26/25 History tablet,extended release 24 hr magnesium chloride 1 tab PO DAILY supplement 02/26/25 History potassium chloride 20 mEq 20 meq PO BID supplement 02/26/25 History tablet,extended release (K-Tab) dicyclomine 20 mg tablet 20 mg PO TID PRN abdominal p ain 02/23/25 Unknown Rx #20 tabs amoxicillin 500 mg-potassium 1 tab PO BID antibiotic # 10 tabs 03/20/25 Unknown Rx clavulanate 125 mg tablet Allergy/AdvReac Type Severity Reaction Status Date / Time diclofenac Allergy rash Verified 03/24/25 08:40 prednisone Allergy Rash Verified 03/24/25 08:40 Family History Father Cancer Prostate cancer Mother Hypertension Sister Hypertension Surgical History Status post placement of cardiac pacemaker History of colonoscopy (03/26/24) History of back surgery History of cardiac catheterization History of esophagogastroduodenoscopy (EGD) History of cardioversion (06/18/19) History of radiofrequency ablation procedure for cardiac arrhythmia (11/11/11) History of electrophysiologic study (08/08/00) History of left heart catheterization (07/17/12) History of hemorrhoidectomy History of Zenaida fundoplication History of coronary artery stent placement (08/04/00) History of hernia repair History of back surgery Social History household members: none housing: house Smoking Status: Never smoker alcohol intake: never substance use type: does not use caffeine: No ROS Constitutional Constitutional: Reports systems reviewed and no addt'l complaints, except as documented ENT HEENT: Reports systems reviewed and no addt'l complaints, except as documented Cardiovascular Cardiovascular: Reports abdominal bloating, abdominal pain and dyspnea at rest Respiratory/Chest Respiratory/Chest: Reports chest congestion, cough and difficulty clearing secretions Gastrointestinal Gastrointestinal: Reports abdominal pain, bloating and change in bowel habits Objective Data Objective Data Vital Signs: Vital Signs Last response 3 Temperature 36.5 C L 03/24/25 14:15 Temperature Source Temporal 03/24/25 14:15 Pulse Rate 103 H 03/24/25 15:00 Respiratory Rate 18 03/24/25 15:00 Respiratory Effort Short of Breath 03/24/25 08:43 Respiratory Pattern Tachypnea 03/24/25 08:43 Blood Pressure 130/93 H 03/24/25 15:00 Blood Pressure Mean 105 03/24/25 15:00 Blood Pressure Source Monitor 03/24/25 15:00 Blood Pressure Position Semi-Fowlers 03/24/25 15:00 Blood Pressure Location Right Arm 03/24/25 15:00 Pulse Ox 92 03/24/25 15:02 Oxygen Delivery Method Nasal Cannula 03/24/25 15:02 Oxygen Flow Rate (L/min) 6 03/24/25 15:00 Fraction of Inspired Oxygen (FIO2) 6 03/24/25 12:00 I&O: I&O Last 24 Hours 3 03/23/25 03/24/25 03/24/25 23:59 11:59 23:59 Intake Total 380 / 380 Balance 380 / 380 I&O: Total Stay 3 03/24/25 08:35 thru 03/24/25 14:07 Intake Total 380 Balance 380 Current Meds Ordered / Administered: Current meds ordered / Administered 3 Generic Name Dose Route Start Last Admin Trade Name Freq PRN Reason Stop Dose Admin Acetaminophen 650 mg 03/24/25 14:07 Acetaminophen 325 Mg Tablet PO Q6H PRN PRN Pain 1-10 Or Fever >100.7 Apixaban 2.5 mg 03/24/25 22:00 Apixaban 2.5 Mg Tablet ([facility]) PO BID [facility] Ascorbic Acid 500 mg 03/24/25 17:00 [facility] Atorvastatin Calcium 40 mg 03/24/25 22:00 Atorvastatin Calcium 40 Mg Tablet PO QHS [facility] Cholecalciferol 25 mcg 03/24/25 22:00 Cholecalciferol (Vit D3) 25 Mcg Tablet (1,000 Units) PO QHS [facility] Dicyclomine HCl 20 mg 03/24/25 15:31 Dicyclomine 10 Mg Capsule PO TID PRN PRN abdominal pain Diltiazem HCl 120 mg 03/25/25 10:00 Diltiazem Cd 120 Mg Capsule PO QAM [facility] Protocol Finasteride 5 mg 03/25/25 10:00 Finasteride 5 Mg Tablet PO DAILY [facility] Sodium Chloride 1,000 mls @ 75 mls/hr 03/24/25 14:07 03/24/25 14:23 IV 03/25/25 16:46 75 mls/hr .[id number] [facility] Administration Meropenem 1 gm/ Sodium 100 mls @ 33 mls/hr 03/24/25 14:30 03/24/25 14:40 Chloride IV 33 mls/hr Q24H ILE[facility] Administration Isosorbide Mononitrate 30 mg 03/25/25 10:00 Isosorbide Mononitrate 30 Mg Tablet PO QAM [facility] Protocol Levothyroxine Sodium 50 mcg 03/25/25 06:00 Levothyroxine 50 Mcg Tablet PO DAILY@0600 [facility] Loratadine 10 mg 03/25/25 10:00 Loratadine 10 Mg Tablet PO Q48 [facility] Magnesium Chloride 64 mg 03/25/25 10:00 Magnesium Chloride 64 Mg Delay Rel.Tablet PO DAILY [facility] Melatonin 3 mg 03/24/25 15:21 Melatonin 3 Mg Tablet PO QHS PRN PRN Insomnia Menthol 1 applic 03/24/25 15:21 Menthol 226.8 Gm Jar TOPICAL TID PRN PRN Arthritis Pain 1-10 Nitroglycerin 0.4 mg 03/24/25 14:07 Nitroglycerin (Inpatient Use) 0.4 Mg Tab.Subl SL Q5M PRN CARDIAC/CHEST PAIN Non-Formulary Medication 100 mg 03/24/25 22:00 Amiodarone PO BID [facility] Non-Formulary Medication 1 tablet 03/24/25 22:00 B-Complex With Vitamin C PO BID [facility] Non-Formulary Medication 325 mg 03/24/25 22:00 Ferrous Sulfate [Feosol] PO QHS [facility] Ondansetron HCl 4 mg 03/24/25 14:07 Ondansetron 4 Mg/2 Ml Vial IV Q8H PRN PRN NAUSEA/VOMITING Oxycodone HCl 2.5 - 5 mg 03/24/25 14:07 Oxycodone 5 Mg Tablet PO Q4H PRN PRN Pain Score 4-10 Pantoprazole Sodium 20 mg 03/25/25 10:00 Pantoprazole Sodium 20 Mg Tablet PO DAILY [facility] Ranolazine 500 mg 03/24/25 22:00 Ranolazine 500 Mg Tablet PO BID [facility] Sodium Chloride 10 - 40 ml 03/24/25 14:32 0.9% Saline Lock 10 Ml Syringe IV UD PRN SALINE FLUSH Tamsulosin HCl 0.4 mg 03/24/25 22:00 Tamsulosin Hcl 0.4 Mg Capsule PO BID [facility] Trazodone HCl 25 mg 03/24/25 22:00 Trazodone 50 Mg Tablet PO QHS [facility] Physical Exam Const alert and oriented x3 General Appearance: cooperative and in distress Orientation / Consciousness: awake, oriented to person and oriented to place Exam Limitations: no limitations HEENT external ears normal Head and Scalp: normal to inspection Eyes PERRL and EOMs intact bilaterally Neck full ROM Resp Effort and Inspection: abnormal respiratory pattern, tachypneic, respiratory distress and uses accessory muscles Auscultation: diminished lung sounds and bronchial breath sounds GI soft to palpation Lab / Micro Data Attestation: I reviewed the patient's lab results. 03/24/25 08:50 03/24/25 08:50 Labs: Laboratory Results - last 24 hr 03/24/25 08:50: WBC 40.9 H*, RBC 3.00 L, Hgb 11.0 L, Hct 31.7 L, MCV 105.7 H, M CH 36.7 H, MCHC 34.7, RDW Std Deviation 60.5 H, RDW Coeff of Pablo 15.7 H, Plt Count 238, MPV 10.3, Immature Gran % (Auto) 3.700 H, Neut % (Auto) 92.3 H, Lymph % (Auto) 0.5 L, [place] % (Auto) 3.2, Eos % (Auto) 0.1, Baso % (Auto) 0.2, A bsolute Neuts (auto) 37.7 H, Absolute Lymphs (auto) 0.19 L, Nucleated RBC % 0.1, Differential Comment COMMENT, Diff Path Review December, Sodium 132 L, P otassium 6.0 H*, Chloride 96 L, Carbon Dioxide 18.6 L, Anion Gap 18 H, BUN 72 H, Creatinine 5.10 H, Estim Creat Clear Calc 9.86 L*, Est GFR (MDRD) Non-Af 11 L, BUN/Creatinine Ratio 14.1, Glucose 134 H, Calcium 7.8, Troponin T High Sens 177 H* D, NT pro BNP II 03/24/25 10:52: Troponin T Hi Sens 2 Hr 181 H* 03/24/25 11:45: POC Glucose 132 H 03/24/25 12:45: Lactic Acid 1.8, Troponin T Hi Sens 4Hr 164 H* ABG Data Attestation: I personally reviewed and interpreted this ABG as follows: Imaging Radiology Impression Chest X-Ray 03/24/25 09:05 IMPRESSION: Pulmonary findings as above. Possible subdiaphragmatic free air and dilated small bowel. CT abdomen pelvis is recommended. Critical results were communicated to Dr. Blake at 10:10 a.m.. Reading Location: [facility] Abdomen/Pelvis CT 03/24/25 10:16 IMPRESSION: Worsening diffuse ground-glass and confluent airspace opacities in the lower lobes consistent with CHF with pneumonia can not be excluded. Developing small-bowel loops dilation measuring up to 7 cm in diameter. The terminal ileum is decompressed. The oral contrast fills the colon. These finding can still be consistent with partial small bowel obstruction and terminal ileitis. Please correlate with history of inflammatory bowel disease. Colonic diverticulosis with no evidence of acute diverticulitis. Reading Location: [facility] X-Ray 03/24/25 12:34 IMPRESSION: Small-bowel obstruction. The NG tube terminates in the stomach. Reading Location: [facility] Assessment and Plan . Assessment and plan: #acute respiratory failure - multifactorial with components of chronic lung disease and acute aspiration event - appears high risk for intubation presently #HFrEF per chart LVEF 15% #suspect aspiration event #suspicion of SBO, evaluated by surgery already #leukemoid reaction WBC 40K #bilateral lobar consolidation on abd CT Suggest: 1. ABG is ordered- will follow up 2. trial of BiPAP is worthwhile even if low chance of succeeding/ forestalling intubation 3. standard COPD Rx 4. empiric Abx 5. check BNP to assist with volume status assessment Critical Care Time: 60 minutes The entirety of this encounter was done via Telemedicine
--- NOTE | 2025-03-24 15:52 | NURSING ---
Patient admitted to ICU 202 from ED. On Arrival, patient respirations 30 breaths/min, SPO2 90% on 100% Non-rebreather. Auscultated breath sounds and found to be very diminished with coarse rhonchi. Patient is coughing up bright red, sanguinous secretions that he suctions himself with Yankauer. NG placed to LIWS for immediate return of 100 mls of brown drainage suspicious of stool. Dr Butler (ICU) called and notified of consult and advised on patient condition. Dr Butler came on screen at bedside immediately to assess patient. Tami (Rt) at bedside, ABG obtained per order from Dr Butler. Dr Butler discussed possibility of being placed on a ventilator if it becomes necessary and patient was agreeable. No other orders at this time, continue to monitor patient closely.
[2025-03-24 15:54] LABS: Base Excess -3 mmol/L (-2 to +2); FI02 100.0; PO2 63 mmHG (75-100); SITE R Brach; SO2 92 % (95-99)
--- NOTE | 2025-03-24 16:20 | NURSING ---
Responded to bedside for case monitor alarming for hypoxia. Patient found to be unresponsive with absent respirations, patient had a pulse at this time. ISOLATION WASHER called and rescue breathing started with Ambu-bag. Cardiac rhythm changed from wide QRS complex sinus rhythm to irregularly v-paced during this time, Patient was found to be without pulse after this change. Dr Shanks present at this time, confirmed that patient was DNRCCA status. Dr Shanks pronounced the patient at 1624.
--- NOTE | 2025-03-24 16:25 | CASEMGMT ---
Social Work Date of referral: 03/24/25 Reason for referral: Rapid Response Team Code Clinical Laboratory Aides Teacher arrived on the ICU unit and patient had already been pronounced . No family in the room and no family coming in. Clinical Laboratory Aides Teacher left after being told nothing is needed at this time. Patient's family is already aware. Dior Navarro, LOAD DISPATCHER LOCAL, CORE ASSEMBLY SUPERVISOR
--- NOTE | 2025-03-24 16:55 | PCM.HOSP.N ---
Hospitalist Note Rapid response was called approximately 4:19 PM on 03/24/2025, patient had no pulse and no respirations, pupils were fixed. Patient was a DNR CC arrest with intubation, due to the fact he had no pulse I did not elect to intubate the patient. Patient was pronounced at 4:19 PM on 03/24/2025, Dr. Edmonds the attending physician was notified.
--- NOTE | 2025-03-24 17:10 | PCM.DEATH ---
Preliminary Cause of Preliminary Cause of Preliminary Cause of : acute cardiopulmonary arrest due to acute on chronic hypoxic respiratory failure due to pneumonia, FE on CKD IV and partial small bowel obstruction Date of Admission: 03/24/25 Date of : 03/24/25 Principle Diagnosis acute on chronic hypoxic respiratory failure, partial small bowel obstruction Problem List: Active and Suspected Problems (Updated 03/24/25 @ 16:[address] César Blake, DO) Bowel obstruction (Acute) Chronic anticoagulation (Acute) Pneumonia (Acute) Elevated troponin (Acute) Acute hypoxemic respiratory failure (Acute) Acute on chronic heart failure with preserved ejection fraction (HFpEF) (Acute) Hospital Course RICHIE HANSEN, is a 84 M with a PMH as outlined who was admitted via the ED on 03/24/2025 with a complaint of shortness of breath which had been going on for ~ 2 days. Patient was just discharged from [facility] [place] on 03/20/2025 after being admitted for the same complaints and was diuresed with IVF, given IV solumedrol and IV antibiotics. He was discharged and sent to the TCU on oral antibiotics and lasix. He said his shortness of breath however worsened in the TCU so he was brought back to the ED. he admitted to feeling more short of breath and also complained of abdominal pain. He had been started on Zosyn in the TCU after he had a CT abdomen and pelvis on 03/21/2025 which showed wall thickening and lack of haustral markings of the terminal ileum, ascending and transverse colon most compatible with enteritis. However, his shortness of breath persisted so he was brought in to the ED. Vitals in the ED were blood pressure of 151/72, pulse rate of 60, respirate rate of 21 and oxygen saturation of 94% on 6 L of oxygen. He usually wore 2 L of oxygen which is what he was on when he was discharged on 03/20/2025. CBC showed hemoglobin of 11 with WBC of 40.9 and platelets of 238. Chemistry showed sodium of 132 with potassium of 6 though sample was hemolyzed. Bicarb was 18.6 and anion gap was 18. Creatinine was up to 5.10 with his baseline creatinine being around 2.5. Initial troponin was 177 and trended up to 181. CT abdomen and pelvis done today showed worsening diffuse groundglass and confluent airspace diseases in the lower lobes consistent with CHF with pneumonia not being excluded and also developing small bowel loop dilatation measuring up to 7 cm in diameter with the terminal ileum being decompressed and oral contrast filling the colon findings could be consistent with partial small bowel obstruction and terminal ileitis. He has been admitted to be managed for acute on chronic hypoxic respiratory failure due to worsening pneumonia as well as partial small bowel obstruction and hypokalemia as well as FE on CKD. He was started on IV meropenem as he had recently been on IV zosyn. General surgery and critical care were consulted and he was admitted to the ICU. He had an NG tube passed in the ED per general surgery. Patient was advised that in light of his acute illness and comorbidities, he was a very poor surgical candidate. He wished to be DNRCCA with intubation per code status. Nephrology was also consulted o/a of hte FE on CKD IV. At ~ 4:19, a rapid response was called after patient was found unresponsive with no pulse. Due to his DNRCCA with intubation status, no ACLS was performed. He was pronounced at 4:19pm on 03/24/2025. Cause of is acute cardiopulmonary arrest due to acute on chronic hypoxic respiratory failure due to pneumonia, partial small bowel obstruction and FE on CKD IV with hyperkalemia. Visit Charges Inpatient E&M: 54215 Disch Hosp
--- NOTE | 2025-03-25 12:17 | CHAPLAIN ---
Type of Pastoral Visit ___ Initial Visit ___ Follow-up Visit _x__ On-call Visit ___ General Patient Visit ___ Spiritual Assessment _x__ Family Conference _x__ Bereavement ___ Rapid Response ___ Code Blue ___ Other (describe below) Pastoral Care Referral From ___ Patient _x__ Family _x__ Nurse ___ Physician ___ Artist Woodblock ___ Owner Consulting Engineer ___ Other (describe below) Sacrament/Intervention _x_ Active listening ___ Anointing ___ Presybeterian _x__ Bereavement ___ Communion _x__ Jerica exploration ___ _x__ Life review _x__ Prayer ___ Reconciliation ___ Sacrament of Sick _x__ Supportive presence ___ Wedding ___ Other (describe below) Pastoral Comments this visit occurred on TuesdayMarch 24 upon of this patient; family members requested spiritual care support and presence; volunteer chaplains were not available as scheduled; this wharf tender had met with this patient on several previous occasions; pt has frequently received spiritual care and had asked for prayer at each visit; sat with family members and listened to their feelings of shock over sudden and the rapid decline today of patient; pt has limited family and having someone to talk with and to give spiritual care was important for them; came to room and offered scripture readings and prayer in presence of the family; offered other grief resources at this time
[2025-03-25 23:28] LABS: Potassium 6.0 mmol/L (3.3-5.1); Pro- Brain NATRIURETIC PEPTIDE 46661 pg/mL (<=1800); Troponin T High Sensitivity 177 ng/L (<=22)
== END 2025-03-24 21:20 | DRG 189 ==
LOC: ED 13:22 → ICU 13:31
PROVIDERS: Admitting Provider Student in an Organized Health Care Education/Training Program; Emergency Provider Emergency Medicine; PCP Family Medicine; Visit Provider Student in an Organized Health Care Education/Training Program
DX: J96.21 Acute and chronic respiratory failure with hypoxia (principal); J69.0 Pneumonitis due to inhalation of food and vomit; I50.33 Acute on chronic diastolic (congestive) heart failure; K56.600 Partial intestinal obstruction, unspecified as to cause; E87.20 Acidosis, unspecified; K50.012 Crohn's disease of small intestine with intestinal obstruction; N17.9 Acute kidney failure, unspecified; N18.4 Chronic kidney disease, stage 4 (severe); I13.0 Hypertensive heart and chronic kidney disease with heart failure and stage 1 through stage 4 chronic kidney disease, or unspecified chronic kidney disease; Z66 Do not resuscitate; J44.9 Chronic obstructive pulmonary disease, unspecified; E03.9 Hypothyroidism, unspecified; F32.A Depression, unspecified; I48.0 Paroxysmal atrial fibrillation; I46.8 Cardiac arrest due to other underlying condition; E78.00 Pure hypercholesterolemia, unspecified; I25.10 Atherosclerotic heart disease of native coronary artery without angina pectoris; E87.5 Hyperkalemia; K21.9 Gastro-esophageal reflux disease without esophagitis; I25.2 Old myocardial infarction; G47.30 Sleep apnea, unspecified; Z79.899 Other long term (current) drug therapy; N40.0 Benign prostatic hyperplasia without lower urinary tract symptoms; Z79.890 Hormone replacement therapy; Z79.01 Long term (current) use of anticoagulants; Z95.5 Presence of coronary angioplasty implant and graft; Z95.0 Presence of cardiac pacemaker; R10.9 Unspecified abdominal pain; Z99.89 Dependence on other enabling machines and devices; R79.89 Other specified abnormal findings of blood chemistry
CPT/HCPCS: 36600; 71045; 74018; 74176; 80048; 82803; 82962; 83605; 83880; 84484; 85025; 87040; 93005; 99285; J2185; A4216; J0612